=== PATIENT | male | born 1955 | race Caucasian/White ===

== ENCOUNTER → 2017-05-18 09:25 | Outpatient (CLI) | payer OTHER, SELFPAY ==
[2017-05-18 11:19] LABS: International Normalized Ratio 1.2; Prothrombin Time (Protime)PT. 14.9 SECONDS (11.7-14.9)
== END ==
PROVIDERS: Family Provider Family Medicine; PCP Family Medicine; Visit Provider Internal Medicine Cardiovascular Disease
DX: I48.91 Unspecified atrial fibrillation (principal); I48.92 Unspecified atrial flutter
CPT/HCPCS: 36415; 85610

== ENCOUNTER → 2017-05-25 09:01 | Outpatient (CLI) | payer OTHER, SELFPAY ==
[2017-05-25 11:06] LABS: International Normalized Ratio 1.3; Prothrombin Time (Protime)PT. 15.9 SECONDS (11.7-14.9)
== END ==
PROVIDERS: Family Provider Family Medicine; PCP Family Medicine; Visit Provider Internal Medicine Cardiovascular Disease
DX: I48.91 Unspecified atrial fibrillation (principal); I48.92 Unspecified atrial flutter
CPT/HCPCS: 36415; 85610

== ENCOUNTER → 2017-06-08 12:22 | Outpatient (CLI) | payer OTHER, SELFPAY ==
--- NOTE | 2017-06-08 12:50 | PCM.CR.HP2 ---
CR - History & Physical - General Arrival date:: 06/08/17 Arrival time:: 12:50 Date of Admission: 06/08/17 Referring Physician: Dr. Ambrocio Whitaker Primary Diagnosis: Status post aortic valve replacement, replaced pacemaker device - History of Present Cardiac Event Onset Date: Enter Onset Date of cardiac illnesses in Comment field below Valve Replacement/Repair:: Yes - 05/07/2017 @ [facility] Pacemaker/ICD: Yes - 05/07/2017 Type of Symptoms:: 2011 started having, anemia iron deficiency, discovered had aortic valve stenosis, then this year bad enough that it was time to replace it. Interventions with present event:: Aortic valve replaced with a 27mm [employer] trifecta valve and pacemaker Were there any complications?: none, healed, actually ahead of recovery schedule - Medications Home Medications: Ambulatory Orders Medication Instructions Recorded ascorbic acid (vitamin C) 500 mg 500 mg PO QDAY ea 03/26/17 capsule cholecalciferol (vitamin D3) 5,000 5,000 unit PO QDAY 03/26/17 unit capsule levothyroxine 200 mcg tablet 200 mcg PO QDAY tab 03/26/17 pantoprazole 40 mg tablet,delayed 20 mg PO BID tab 03/26/17 release cyanocobalamin (vit B-12) 500 mcg 500 mcg PO QDAY 03/27/17 tablet sucralfate 1 gram tablet 1 g PO TID tab 03/27/17 iron dextran 100 mg/2 mL (50 50 mg IM QWEEK 03/31/17 mg/mL) injection solution acetaminophen 325 mg capsule 325 mg PO Q4H PRN 05/18/17 aspirin 81 mg tablet,delayed 81 mg PO QDAY tab 05/18/17 release atorvastatin 40 mg tablet 40 mg PO QDAY 05/18/17 hydralazine 25 mg tablet 25 mg PO Q8H tab 05/18/17 magnesium oxide 400 mg capsule 400 mg PO QDAY cap 05/18/17 multivitamin tablet 1 tab PO QDAY 05/18/17 metoprolol tartrate 25 mg tablet 12.5 mg PO BID tab 06/01/17 warfarin 2 mg tablet 4 mg PO QDAY #180 tab 06/02/17 - Allergies Allergies/Adverse Reactions: Allergies Penicillins Allergy (Verified 06/01/17 09:53) Hives - Sleep Disorder Evaluation Hx of Sleep Apnea: No Do you snore loudly (louder than talking or can be heard through closed doors)?: No Do you often feel tired/ fatigued/ sleepy during daytime?: No Has anyone observed you stop breathing during sleep?: No History of Hypertension (for STOP score): No STOP Results: Negative Advanced Directives - Advanced Directives Power of Digital Color Press Operator: No Living Will: No Advance Directives Information Provided: Yes Advance Directives on File: No DNR Order?:: No Past Medical History - Problems and Co-Morbidities Problems & Co-Morbidities: Smoking - former smoker quit in 2011., Dyslipidemia - Past Medical Illness Past Medical Illness: Carotid Artery Disease - left side carotid bruits, monitoring status. Other Medical Illnesses:: left 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 ligation, shortness of breath, abnormal EKG, ventricular hypertrophy, bruit of left carotid artery, anemia iron deficiency, hypothyroidism, retinal embolus. - Past Cardiac Illness Past Cardiac Illness: Valve Disorders - aortic and tricuspid valve insuffiency, Arrhythmias - atrial fibrillation, sick sinus syndrome, atrioventricular block type I, premature ventricular contractions, sinus bradycardia., Heart Murmur - since age of 13, Ejection Fraction - 65-70% - Other Other: Vision/Eye Problems - Cardiology Procedures/Interventions Cardiology Procedures/Interventions: Heart Catheterization, Echocardiogram, Stress Echocardiogram - Past Surgical History Surgical History: - - gastric bypass in 1995, wrist surgery, carpal tunnel surgery, knee surgery 2000, - Family History Summary Additional Family History: Father CAD, Mother CAD thyroid disorder, sister thyroid cancer. Review of Systems - Review of Systems Hints: Right click = Denies (Slash). 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 Denies: Shortness of Breath at Rest, Operative Discomfort, Dizziness/Lightheadedness, Fatigue, Sexual Changes Risk Factor Assessment - Chief Complaint Chief Complaint: patient is a very pleasent 62 year old male who presents to cardiac rehab today under the care of Dr. Whitaker. The patient states he has his follow up tomorrow at [facility] with his cardiac surgeon and expects a full release. - Pulse Pulse Rate: 70 Pulse Rhythm: Regular - Hypertension Blood Pressure Sitting - Right Arm: 110/68 - Stress Stress: - - pretty laid back type of individual - Obesity Height: 6 ft 2 in Weight:: 221 lb Weight in Pounds: 221.0 lbs Body Mass Index (BMI): 28.3 Nutritional Referral for Obesity: No - Physical Inactivity Physical Inactivity: Reg Exercise 30 min/day, Recreational activity - Risk Stratification Risk Guidelines: Lowest Risk: Risk Factor for Smoking, Risk Factor for Dyslipidemia, Risk Factor for Diabetes, Risk Factor for Obesity, Risk Factor for Hypertension, Risk Factor for Sedentary Lifestyle, Risk Factor for Depression - For Smoking Smoking Risk Guidelines: Smoking Low Risk: None or quit greater than 6 months ago. Smoking Moderate Risk: Smoker or quit 6 months or less ago. Smoking High Risk: Smoker - For Dyslipidemia Dyslipidemia Risk Guidelines: Low Risk: Moderate Risk: High Risk: 15-25% fat 25.1-29% fat >/= 30% fat. <7% sat fat 7-9% sat fat >9% sat fat. <150 mg chol 150-299 mg chol >/= 300 mg chol. LDL <100 LDL 100-129 LDL >/= 130. Chol/HDL ratio <5.0 Chol/HDL ratio 5.0-6.0 Chol/HDL ratio >6.0. Triglycerides <100 Triglycerides 100-149 Triglycerides >/= 150 - For Diabetes Mellitus Diabetes Risk Guidelines: Diabetes Low Risk: HgA1c <6.5% and/or FBG <120. Diabetes Moderate Risk: HgA1c 6.6-7.9% and/or FBG 120-180. Diabetes High Risk: HgA1c >/= 8% and/or FBG >180 - For Obesity/Overweight Obesity/Overweight Risk Guidelines: Obesity Low Risk: BMI <25.0. Obesity Moderate Risk: BMI 25-29.9. Obesity High Risk: BMI >/= 30.0 - For Hypertension Hypertension Risk Guidelines: Hypertension Low Risk: Systolic <120 and Diastolic <80. Hypertension Moderate Risk: Systolic 120-139 and Diastolic 80-89. Hypertension High Risk: Systolic >/= 140 and Diastolic >/= 90 - For Sedentary Lifestyle Sedentary Lifestyle Risk Guidelines: Sedentary Lifestyle Low Risk: >/= 1,500 kcal/week. Sedentary Lifestyle Moderate Risk: 700-1,499 kcal/week. Sedentary Lifestyle High Risk: < 700 kcal/week - For Depression Depression Risk Guidelines: Depression Low Risk: Not clinically depressed. Depression Moderate Risk: Mildly depressed. 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 Hours worked per day:: 10 - 14 hours on duty Returned to work on:: 07/05/17 - [employer] date. - Hobbies, Recreation, Social Activities Hobbies: Sports - golfing, Other - ride motorcycle Recreational Activities: I am able to engage in all my recreational activities Marital Status - Status Marital Status: - Current Living Arrangements Living Environment:: Family - Children How many children do you have?: 2 - step daughters, 2 grandkids Do any of your children live nearby?: No - outside area [place] - Safety Do you feel safe in your surroundings?: Yes - Assistance Do you need any assistance at home?: none
--- NOTE | 2017-06-08 13:01 | CR.HP_ITS ---
CR - History & Physical - General Arrival date:: 06/08/17 Arrival time:: 12:50 Date of Admission: 06/08/17 Referring Physician: Dr. Ambrocio Whitaker Primary Diagnosis: Status post aortic valve replacement, replaced pacemaker device - History of Present Cardiac Event Onset Date: Enter Onset Date of cardiac illnesses in Comment field below Valve Replacement/Repair:: Yes - 05/07/2017 @ [facility] Pacemaker/ICD: Yes - 05/07/2017 Type of Symptoms:: 2011 started having, anemia iron deficiency, discovered had aortic valve stenosis, then this year bad enough that it was time to replace it. Interventions with present event:: Aortic valve replaced with a 27mm [employer] trifecta valve and pacemaker Were there any complications?: none, healed, actually ahead of recovery schedule - Medications Home Medications: Ambulatory Orders Medication Instructions Recorded ascorbic acid (vitamin C) 500 mg 500 mg PO QDAY ea 03/26/17 capsule cholecalciferol (vitamin D3) 5,000 5,000 unit PO QDAY 03/26/17 unit capsule levothyroxine 200 mcg tablet 200 mcg PO QDAY tab 03/26/17 pantoprazole 40 mg tablet,delayed 20 mg PO BID tab 03/26/17 release cyanocobalamin (vit B-12) 500 mcg 500 mcg PO QDAY 03/27/17 tablet sucralfate 1 gram tablet 1 g PO TID tab 03/27/17 iron dextran 100 mg/2 mL (50 50 mg IM QWEEK 03/31/17 mg/mL) injection solution acetaminophen 325 mg capsule 325 mg PO Q4H PRN 05/18/17 aspirin 81 mg tablet,delayed 81 mg PO QDAY tab 05/18/17 release atorvastatin 40 mg tablet 40 mg PO QDAY 05/18/17 hydralazine 25 mg tablet 25 mg PO Q8H tab 05/18/17 magnesium oxide 400 mg capsule 400 mg PO QDAY cap 05/18/17 multivitamin tablet 1 tab PO QDAY 05/18/17 metoprolol tartrate 25 mg tablet 12.5 mg PO BID tab 06/01/17 warfarin 2 mg tablet 4 mg PO QDAY #180 tab 06/02/17 - Allergies Allergies/Adverse Reactions: Allergies Penicillins Allergy (Verified 06/01/17 09:53) Hives - Sleep Disorder Evaluation Hx of Sleep Apnea: No Do you snore loudly (louder than talking or can be heard through closed doors)? : No Do you often feel tired/ fatigued/ sleepy during daytime?: No Has anyone observed you stop breathing during sleep?: No History of Hypertension (for STOP score): No STOP Results: Negative Advanced Directives - Advanced Directives Power of Packaging Line Operator: No Living Will: No Advance Directives Information Provided: Yes Advance Directives on File: No DNR Order?:: No Past Medical History - Problems and Co-Morbidities Problems & Co-Morbidities: Smoking - former smoker quit in 2011., Dyslipidemia - Past Medical Illness Past Medical Illness: Carotid Artery Disease - left side carotid bruits, monitoring status. Other Medical Illnesses:: left 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 ligation, shortness of breath, abnormal EKG, ventricular hypertrophy, bruit of left carotid artery, anemia iron deficiency, hypothyroidism, retinal embolus. - Past Cardiac Illness Past Cardiac Illness: Valve Disorders - aortic and tricuspid valve insuffiency, Arrhythmias - atrial fibrillation, sick sinus syndrome, atrioventricular block type I, premature ventricular contractions, sinus bradycardia., Heart Murmur - since age of 13, Ejection Fraction - 65-70% - Other Other: Vision/Eye Problems - Cardiology Procedures/Interventions Cardiology Procedures/Interventions: Heart Catheterization, Echocardiogram, Stress Echocardiogram - Past Surgical History Surgical History: - - gastric bypass in 1995, wrist surgery, carpal tunnel surgery, knee surgery 2000, - Family History Summary Additional Family History: Father CAD, Mother CAD thyroid disorder, sister thyroid cancer. Review of Systems - Review of Systems Hints: Right click = Denies (Slash). 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 Denies: Shortness of Breath at Rest, Operative Discomfort, Dizziness/Lightheadedness, Fatigue, Sexual Changes Risk Factor Assessment - Chief Complaint Chief Complaint: patient is a very pleasent 62 year old male who presents to cardiac rehab today under the care of Dr. Whitaker. The patient states he has his follow up tomorrow at [facility] with his cardiac surgeon and expects a full release. - Pulse Pulse Rate: 70 Pulse Rhythm: Regular - Hypertension Blood Pressure Sitting - Right Arm: 110/68 - Stress Stress: - - pretty laid back type of individual - Obesity Height: 6 ft 2 in Weight:: 221 lb Weight in Pounds: 221.0 lbs Body Mass Index (BMI): 28.3 Nutritional Referral for Obesity: No - Physical Inactivity Physical Inactivity: Reg Exercise 30 min/day, Recreational activity - Risk Stratification Risk Guidelines: Lowest Risk: Risk Factor for Smoking, Risk Factor for Dyslipidemia, Risk Factor for Diabetes, Risk Factor for Obesity, Risk Factor for Hypertension, Risk Factor for Sedentary Lifestyle, Risk Factor for Depression - For Smoking Smoking Risk Guidelines: Smoking Low Risk: None or quit greater than 6 months ago. Smoking Moderate Risk: Smoker or quit 6 months or less ago. Smoking High Risk: Smoker - For Dyslipidemia Dyslipidemia Risk Guidelines: Low Risk: Moderate Risk: High Risk: 15-25% fat 25.1-29% fat >/= 30% fat. <7% sat fat 7-9% sat fat >9% sat fat. <150 mg chol 150-299 mg chol >/= 300 mg chol. LDL <100 LDL 100-129 LDL >/= 130. Chol/HDL ratio <5.0 Chol/HDL ratio 5.0-6.0 Chol/HDL ratio >6.0. Triglycerides <100 Triglycerides 100-149 Triglycerides >/= 150 - For Diabetes Mellitus Diabetes Risk Guidelines: Diabetes Low Risk: HgA1c <6.5% and/or FBG <120. Diabetes Moderate Risk: HgA1c 6.6-7.9% and/or FBG 120-180. Diabetes High Risk: HgA1c >/= 8% and/or FBG >180 - For Obesity/Overweight Obesity/Overweight Risk Guidelines: Obesity Low Risk: BMI <25.0. Obesity Moderate Risk: BMI 25-29.9. Obesity High Risk: BMI >/= 30.0 - For Hypertension Hypertension Risk Guidelines: Hypertension Low Risk: Systolic <120 and Diastolic <80. Hypertension Moderate Risk: Systolic 120-139 and Diastolic 80-89. Hypertension High Risk: Systolic >/= 140 and Diastolic >/= 90 - For Sedentary Lifestyle Sedentary Lifestyle Risk Guidelines: Sedentary Lifestyle Low Risk: >/= 1 ,500 kcal/week. Sedentary Lifestyle Moderate Risk: 700-1,499 kcal/week. Sedentary Lifestyle High Risk: < 700 kcal/week - For Depression Depression Risk Guidelines: Depression Low Risk: Not clinically depressed. Depression Moderate Risk: Mildly depressed. 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 Hours worked per day:: 10 - 14 hours on duty Returned to work on:: 07/05/17 - [employer] date. - Hobbies, Recreation, Social Activities Hobbies: Sports - golfing, Other - ride motorcycle Recreational Activities: I am able to engage in all my recreational activities Marital Status - Status Marital Status: - Current Living Arrangements Living Environment:: Family - Children How many children do you have?: 2 - step daughters, 2 grandkids Do any of your children live nearby?: No - outside area [place] - Safety Do you feel safe in your surroundings?: Yes - Assistance Do you need any assistance at home?: none
[2017-06-08 13:20] VITALS: BP 110/68; PULSE 70; BMI 28.3
== END ==
PROVIDERS: Family Provider Family Medicine; PCP Family Medicine; Visit Provider Internal Medicine Cardiovascular Disease
DX: I25.10 Atherosclerotic heart disease of native coronary artery without angina pectoris (principal); Z95.2 Presence of prosthetic heart valve

== ENCOUNTER 2017-06-08 12:27 | Outpatient (RCR) | payer OTHER, SELFPAY ==
[2017-06-01 09:45] LABS: International Normalized Ratio 1.2
[2017-06-08 12:57] LABS: International Normalized Ratio 1.4; Prothrombin Time (Protime)PT. 16.8 SECONDS (11.7-14.9)
--- NOTE | 2017-06-08 13:21 | CR.ITP_ITS ---
Exercise - Initial Assessment - Visit Date of Eval: 06/08/17 - established initial ITP Session #:: 1 - start 06/10/2017 - Stages of Change Stages of Change:: Action - Exercise Prescription Mode:: Treadmill, Rower - 8 weeks post op of May 06, 2017, Percy Joya - Hypertension Do any of the following apply?: No Resting Blood Pressure:: 110/68 - Intervention Home Exercise/Activity Goal:: Moderate Exercise 30 min/day x 5 days/wk - Education Goals:: Warm-up, RPE GARBIEL Scale, S/S, Safe Exercise, Self-Monitoring - Exercise Program Goals Exercise Program Goals: Aerobic Activity >30 min Nutrition - Initial Assessment - Program Goals Nutrition Program Goals: LDL <70. Total Cholesterol <200. HDL >45. Triglycerides <150. HgbA1C <7%. BMI <25 - Visit Date of Assessment:: 06/08/17 - establish initial ITP - Stages of Change Stages of Change:: Action - Weight Management Height: 6 ft 4 in Weight:: 221 lb Body Fat %:: 26.9 - Intervention Referral to dietitian:: No Referral to Diabetic Clinic:: No Will attend diet classes:: Yes - Education Gave educational materials for:: Healthy eating Tobacco - Initial Assessment - Program Goals Tobacco Program Goals: Complete smoking cessation. Attend education classes. Improve Knowledge Test score - Stage of Change Stages of Change:: Action - Learning Barriers Learning Barriers: Vision, Ready to Learn - Family Support Do you have family support?: Yes - Tobacco Use Tobacco Use: Non-smoker How long ago did you quit using tobacco products?: Greater than or equal to 6 months ago How many cigarettes do you smoke per day?: 0 Years Smokin Do you use smokeless tobacco?: No - Intervention Smoking Cessation Referral:: No Individual Education/Counseling:: No Education Schedule Given:: Yes - Education Gave educational material for:: Coronary artery disease, Risk factors, Sexuality , Medical compliance, Cardiac A&P, Angina signs & symptoms Psychosocial - Initial Assess - Target Goals Target Goals: Assess presence or absence of depression. Using a valid screening tool, maximizes coping skills. Positive support system - Stages of Change Stages of Change:: Action - Psychosocial Test Tool Used:: HANDS Depression Questionnaire - Intervention PS - Interventions: Yes Attend Stress Management Classes, No Referral to Mental Health, No Referral to [facility] Case Management, No Referral to Physician, No Uses Stress Management Skills - Education Gave educational materials for:: Coping techniques, Signs & symptoms of depression, Stress management, Relaxation techniques - Patient/Program Goal Preventative Medication(s):: Aspirin, Clopidogrel, Beta magdy, Statin/lipid - Assistive Devices Assistive Devices:: None Fall Risk Assessed:: Yes Patient Health Questionnaire Initial Assessment 1. Little interest or pleasure in doing things: Not at all 2. Feeling down, depressed, or hopeless: Not at all 3. Trouble falling or staying asleep, or sleeping too much: Not at all 4. Feeling tired or having little energy: Several days 5. Poor appetite or overeating: Several days 6. Feeling bad about yourself -- or that you are a failure or have let yourself or your family down: Not at all 7. Trouble concentrating on things, such as reading the newspaper or watching television: Not at all 8. Moving or speaking so slowly that other people could have noticed. Or the opposite - being so fidgety or restless that you have been moving around a lot more than usual: Not at all 9. Thoughts that you would be better off , or of hurting yourself in some way: Not at all How difficult have these problems made it for you to do your work, take care of things at home, or get along with other people?: Not difficult at all Total Score: 2 Knowledge Test - Check your knowledge Initial The #1 cause of in the [place] each year is:: Heart disease Which of the following is a common treatment for heart disease?: All of the above The arteries that feed the heart are called:: Coronary arteries HDL cholesterol is known as the good cholesterol.: True What disease increases your risk for heart disease?: Diabetes What food product raises blood cholesterol level the most?: Saturated fat The bad cholesterol in the blood is called:: CBC Hypertension is another word for:: High blood pressure A blood pressure reading of 148/88 is considered normal.: False Exercise will only benefit your health when your heart rate reaches a target level.: False Total Score:: 9 Self-Efficacy Initial Assessment We would like to know how confident you are in doing certain activities. Please select your confidence level for:: Select your confidence level for the following using the scale 1-10 where 1 is not at all confident and 10 is totally confident. Your score is the average of all 6 responses. Fatigue: How confident are you that you can keep the fatigue caused by your disease from interfering with the things you want to do? Select Number: 8 Physical Discomfort or Pain: How confident are you that you can keep the physical discomfort or pain of your disease from interfering with the things you want to do? Select Number: 8 Emotional Distress: How confident are you that you can keep the emotional distress caused by your disease from interfering with the things you want to do? Select Number: 8 Other Symptoms or Health Problems: How confident are you that you can keep other symptoms or health problems from interfering with the things you want to do? Select Number: 8 Different Tasks and Activities: How confident are you that you can do the different tasks and activities needed to manage your health condition so as to reduce your need to see a doctor? Select Number: 8 Medication: How confident are you that you can do things other than just taking medication to reduce how much your illness affects your everyday life? Select Number: 9 Total Score:: 8 Nutrition Survey - Nutrition Survey Instructions Scoring Instructions: Scoring is as follows: Yes = 1 points. No = 0 point. Patient score that is >/=12 is considered to be at potential nutritional risk and could benefit from a referral to a registered dietitian. - Nutrition Survey Initial Have you lost >10 lbs over the past 2 months without trying?: No Are you following a special diet at home for diabetes, low fat, or low salt?: Yes Are you interested in meeting with a dietitian for help understanding your diet? : No Do you eat less than 3 meals a day?: No Do you eat fatty meats (howell, sausage, ribs, etc), fried foods, desserts, large amounts of salad dressings, margarine, butter, or cheese most days?: Yes Do you have food allergies? [Enter types in comment field]: No Do you eat in restaurants more than 3 times a week?: Yes Do you season food with salt, seasoning salt, or garlic salt?: No Do you used canned, boxed, frozen meals, or soups, seasoning packets?: Yes Total Score:: 4 Cardiac Rehabilitation Goals - Cardiac Rehab Goals Cardiac Rehabilitation Goals: 1. Maintain the individual as the primary focus of care. 2. To improve the patient's quality of life. 3. Identification of cardiac risk factors and provide cardiac risk factor management. 4. Enhance the psychosocial status of the patient. 5. Reconditioning enough to allow the patient to resume customary activities. 6. Control symptoms of cardiac disease - Scale Scale for measuring improvement of personal goals: Enter appropriate number in Comments. 2 = Unchanged. 3 = Slightly Better. 4 = Moderate Improvement. 5 = Met my Goal Initial Assessment Personal Goals: 30-day Re-assessment: Quit smoking (participate in smoking cessation, Improve management of stress and emotions, Improve energy level, Participate in home exercise program, Get back to work, or to resume activities faster, Improve knowledge of cardiac disease, Improve muscle strength and endurance, Improve diet and eating habits (eat healthier), Control risk factors (learn risk factor modification)
[2017-06-08 13:51] VITALS: BP 110/68
== END 2017-06-08 13:00 | disposition home or self-care (01) ==
LOC: LAB 12:27
PROVIDERS: Family Provider Family Medicine; PCP Family Medicine; Visit Provider Internal Medicine Cardiovascular Disease
DX: I48.92 Unspecified atrial flutter (principal); I48.91 Unspecified atrial fibrillation
CPT/HCPCS: 36415; 85610

== ENCOUNTER 2017-06-19 08:00 | Outpatient (RCR) | payer OTHER, SELFPAY ==
[2017-06-15 11:21] VITALS: BP 108/64; BP 116/74
--- NOTE | 2017-06-15 11:22 | CR.ITP_ITS ---
Exercise - Initial Assessment - Stages of Change Stages of Change:: Action - Exercise Prescription Mode:: Treadmill, Rower - 8 weeks post op of May 06, 2017, Percy Joya - Hypertension Do any of the following apply?: No - Intervention Home Exercise/Activity Goal:: Moderate Exercise 30 min/day x 5 days/wk - Education Goals:: Warm-up, RPE GABRIEL Scale, S/S, Safe Exercise, Self-Monitoring - Exercise Program Goals Exercise Program Goals: Aerobic Activity >30 min Exercise - 30-day Assessment - Visit Date of Eval: 06/15/17 - 06/10/2017-06/12/2017 Session #:: 2 - Stages of Change Stages of Change:: Action - Exercise Prescription Mode:: Treadmill, Airdyne, NuStep Frequency (x/week): 3 Duration:: 30 METs - Progression: 0.5-1 MET as tolerated: 2.5 Target Heart Rate:: 119-126 Max HR 131 - Hypertension Resting Blood Pressure:: 108/64 Peak Exercise Blood Pressure:: 116/74 Medication Changes:: No - Intervention Home Exercise/Activity Goal:: Sitting Time <3 hrs/day - Education Goals:: Warm-up, RPE GABRIEL Scale, S/S, Safe Exercise, Self-Monitoring - Exercise Program Goals Exercise Program Goals: Aerobic Activity >30 min, B/P <140/90 Exercise - Final/Discharge - Hypertension Do any of the following apply?: No Nutrition - Initial Assessment - Program Goals Nutrition Program Goals: LDL <70. Total Cholesterol <200. HDL >45. Triglycerides <150. HgbA1C <7%. BMI <25 - Stages of Change Stages of Change:: Action - Weight Management Body Fat %:: 26.9 Total Score:: 4 - Intervention Referral to dietitian:: No Referral to Diabetic Clinic:: No Will attend diet classes:: Yes - Education Gave educational materials for:: Healthy eating Nutrition - 30-Day Assessment - Program Goals Nutrition Program Goals: LDL <70. Total Cholesterol <200. HDL >45. Triglycerides <150. HgbA1C <7%. BMI <25 - Visit Date of Eval: 06/15/17 - 06/10/2017-06/12/2017 - Stages of Change Stages of Change:: Action - Lipids Has the patient seen the dietitian?: No - Diabetes Diabetes:: No - Weight Management Weight:: 99.79 kg - Intervention Referral to dietitian:: No Referral to Diabetic Clinic:: No Will attend diet classes:: Yes - Education Attended class for:: Healthy eating Nutrition - 60-Day Assessment - Program Goals Nutrition Program Goals: LDL <70. Total Cholesterol <200. HDL >45. Triglycerides <150. HgbA1C <7%. BMI <25 - Intervention Referral to dietitian:: No Referral to Diabetic Clinic:: No Will attend diet classes:: Yes - Education Attended class for:: Healthy eating Nutrition - 90-Day Assessment - Program Goals Nutrition Program Goals: LDL <70. Total Cholesterol <200. HDL >45. Triglycerides <150. HgbA1C <7%. BMI <25 - Intervention Referral to dietitian:: No Referral to Diabetic Clinic:: No Will attend diet classes:: Yes - Education Attended class for:: Healthy eating Nutrition - Final Assessment - Program Goals Nutrition Program Goals: LDL <70. Total Cholesterol <200. HDL >45. Triglycerides <150. HgbA1C <7%. BMI <25 - Weight Management Body Fat %:: 26.9 Total Score:: 4 - Intervention Referral to dietitian:: No Referral to Diabetic Clinic:: No Will attend diet classes:: Yes Tobacco - Initial Assessment - Program Goals Tobacco Program Goals: Complete smoking cessation. Attend education classes. Improve Knowledge Test score - Stage of Change Stages of Change:: Action - Learning Barriers Learning Barriers: Vision, Ready to Learn Total Score:: 9 - Family Support Do you have family support?: Yes - Tobacco Use Tobacco Use: Non-smoker How long ago did you quit using tobacco products?: Greater than or equal to 6 months ago How many cigarettes do you smoke per day?: 0 Years Smokin Do you use smokeless tobacco?: No - Intervention Smoking Cessation Referral:: No Individual Education/Counseling:: No Education Schedule Given:: Yes - Education Gave educational material for:: Coronary artery disease, Risk factors, Sexuality , Medical compliance, Cardiac A&P, Angina signs & symptoms Tobacco - 30-Day Assessment - Program Goals Tobacco Program Goals: Complete smoking cessation. Attend education classes. Improve Knowledge Test score - Stage of Change Stages of Change:: Action - Learning Barriers Learning Barriers: Participates in education - Family Support Do you have family support?: Yes - Tobacco Use Tobacco Use: Non-smoker How many cigarettes do you smoke per day?: 0 Do you use smokeless tobacco?: No - Intervention Smoking Cessation Referral:: No Individual Education/Counseling:: No Education Schedule Given:: Yes - Education Attended class for:: Tobacco triggers, Coronary artery disease, Risk factors, Sexuality, Medical compliance, Cardiac A&P, Angina signs & symptoms Tobacco - 60-Day Assessment - Program Goals Tobacco Program Goals: Complete smoking cessation. Attend education classes. Improve Knowledge Test score - Family Support Do you have family support?: Yes - Tobacco Use How many cigarettes do you smoke per day?: 0 Do you use smokeless tobacco?: No - Intervention Smoking Cessation Referral:: No Individual Education/Counseling:: No Education Schedule Given:: Yes - Education Attended class for:: Coronary artery disease, Risk factors, Sexuality, Medical compliance, Cardiac A&P, Angina signs & symptoms Tobacco - 90-Day Assessment - Program Goals Tobacco Program Goals: Complete smoking cessation. Attend education classes. Improve Knowledge Test score - Family Support Do you have family support?: Yes - Tobacco Use How many cigarettes do you smoke per day?: 0 Do you use smokeless tobacco?: No - Intervention Smoking Cessation Referral:: No Individual Education/Counseling:: No Education Schedule Given:: Yes - Education Attended class for:: Coronary artery disease, Risk factors, Sexuality, Medical compliance, Cardiac A&P, Angina signs & symptoms Tobacco - Final Assessment - Program Goals Tobacco Program Goals: Complete smoking cessation. Attend education classes. Improve Knowledge Test score - Learning Barriers Cardiac Knowledge Test Score:: 9 - Family Support Do you have family support?: Yes - Tobacco Use How many cigarettes do you smoke per day?: 0 Do you use smokeless tobacco?: No - Intervention Smoking Cessation Referral:: No Individual Education/Counseling:: No Education Schedule Given:: Yes Psychosocial - Initial Assess - Target Goals Target Goals: Assess presence or absence of depression. Using a valid screening tool, maximizes coping skills. Positive support system - Stages of Change Stages of Change:: Action - Psychosocial Test Tool Used:: HANDS Depression Questionnaire Self-Efficacy Score:: 8 - Intervention PS - Interventions: Yes Attend Stress Management Classes, No Referral to Mental Health, No Referral to [facility] Case Management, No Referral to Physician, No Uses Stress Management Skills - Education Gave educational materials for:: Coping techniques, Signs & symptoms of depression, Stress management, Relaxation techniques - Patient/Program Goal Preventative Medication(s):: Aspirin, Clopidogrel, Beta magdy, Statin/lipid - Assistive Devices Assistive Devices:: None Fall Risk Assessed:: Yes Psychosocial - 30-Day Assess - Target Goals Target Goals: Assess presence or absence of depression. Using a valid screening tool, maximizes coping skills. Positive support system - Stages of Change Stages of Change:: Action - Psychosocial Test Tool Used:: HANDS Depression Questionnaire Self-Efficacy Score:: 8 - Intervention PS - Interventions: Yes Attend Stress Management Classes, Yes Uses Stress Management Skills, No Referral to Mental Health, No Referral to [facility] Case Management, No Referral to Physician - Education Attended classes for:: Coping techniques, Signs & symptoms of depression, Stress management, Relaxation techniques - Patient/Program Goal Preventative Medication(s):: Aspirin, Clopidogrel, Beta magdy, Statin/lipid - Assistive Devices Assistive Devices:: None Fall Risk Assessed:: Yes Psychosocial - 60-Day Assess - Target Goals Target Goals: Assess presence or absence of depression. Using a valid screening tool, maximizes coping skills. Positive support system - Psychosocial Test Tool Used:: HANDS Depression Questionnaire Self-Efficacy Score:: 8 - Education Attended classes for:: Coping techniques, Signs & symptoms of depression, Stress management, Relaxation techniques - Patient/Program Goal Preventative Medication(s):: Aspirin, Clopidogrel, Beta magdy, Statin/lipid - Assistive Devices Assistive Devices:: None Fall Risk Assessed:: Yes Psychosocial - 90-Day Assess - Target Goals Target Goals: Assess presence or absence of depression. Using a valid screening tool, maximizes coping skills. Positive support system - Psychosocial Test Tool Used:: HANDS Depression Questionnaire Self-Efficacy Score:: 8 - Education Attended classes for:: Coping techniques, Signs & symptoms of depression, Stress management, Relaxation techniques - Patient/Program Goal Preventative Medication(s):: Aspirin, Clopidogrel, Beta magdy, Statin/lipid - Assistive Devices Assistive Devices:: None Fall Risk Assessed:: Yes Psychosocial - Final Assessmen - Target Goals Target Goals: Assess presence or absence of depression. Using a valid screening tool, maximizes coping skills. Positive support system - Psychosocial Test Tool Used:: HANDS Depression Questionnaire Self-Efficacy Score:: 8 - Patient/Program Goal Preventative Medication(s):: Aspirin, Clopidogrel, Beta magdy, Statin/lipid - Assistive Devices Assistive Devices:: None Fall Risk Assessed:: Yes Patient Health Questionnaire 30-Day Re-eval Assessment 1. Little interest or pleasure in doing things: Not at all 2. Feeling down, depressed, or hopeless: Not at all 3. Trouble falling or staying asleep, or sleeping too much: Not at all 4. Feeling tired or having little energy: Not at all 5. Poor appetite or overeating: Not at all 6. Feeling bad about yourself -- or that you are a failure or have let yourself or your family down: Not at all 7. Trouble concentrating on things, such as reading the newspaper or watching television: Not at all 8. Moving or speaking so slowly that other people could have noticed. Or the opposite - being so fidgety or restless that you have been moving around a lot more than usual: Not at all 9. Thoughts that you would be better off , or of hurting yourself in some way: Not at all How difficult have these problems made it for you to do your work, take care of things at home, or get along with other people?: Not difficult at all Total Score: 0 Self-Efficacy 30-Day Re-eval Assessment We would like to know how confident you are in doing certain activities. Please select your confidence level for:: Select your confidence level for the following using the scale 1-10 where 1 is not at all confident and 10 is totally confident. Your score is the average of all 6 responses. Fatigue: How confident are you that you can keep the fatigue caused by your disease from interfering with the things you want to do? Select Number: 10 Physical Discomfort or Pain: How confident are you that you can keep the physical discomfort or pain of your disease from interfering with the things you want to do? Select Number: 10 Emotional Distress: How confident are you that you can keep the emotional distress caused by your disease from interfering with the things you want to do? Select Number: 10 Other Symptoms or Health Problems: How confident are you that you can keep other symptoms or health problems from interfering with the things you want to do? Select Number: 10 Different Tasks and Activities: How confident are you that you can do the different tasks and activities needed to manage your health condition so as to reduce your need to see a doctor? Select Number: 10 Medication: How confident are you that you can do things other than just taking medication to reduce how much your illness affects your everyday life? Select Number: 10 Total Score:: 10 Cardiac Rehabilitation Goals - Cardiac Rehab Goals Cardiac Rehabilitation Goals: 1. Maintain the individual as the primary focus of care. 2. To improve the patient's quality of life. 3. Identification of cardiac risk factors and provide cardiac risk factor management. 4. Enhance the psychosocial status of the patient. 5. Reconditioning enough to allow the patient to resume customary activities. 6. Control symptoms of cardiac disease - Scale Scale for measuring improvement of personal goals: Enter appropriate number in Comments. 2 = Unchanged. 3 = Slightly Better. 4 = Moderate Improvement. 5 = Met my Goal 30-Day Re-eval Assessment Personal Goals: 30-day Re-assessment: Improve energy level, Participate in home exercise program, Improve knowledge of cardiac disease, Improve muscle strength and endurance, Control risk factors (learn risk factor modification)
== END 2017-06-20 23:59 ==
LOC: CR 08:00
PROVIDERS: Family Provider Family Medicine; PCP Family Medicine; Visit Provider Internal Medicine Cardiovascular Disease
DX: I25.10 Atherosclerotic heart disease of native coronary artery without angina pectoris (principal); Z95.2 Presence of prosthetic heart valve
CPT/HCPCS: 93798

== ENCOUNTER 2017-07-03 08:00 | Outpatient (RCR) | payer OTHER, SELFPAY ==
[2017-06-21 01:19] VITALS: BP 108/64; BP 116/74
[2017-07-14 06:36] VITALS: BP 106/68
--- NOTE | 2017-07-14 06:37 | CR.ITP_ITS ---
Exercise - Final/Discharge - Visit Date of Eval: 07/14/17 - discharged 07/03/2017 returned to work. 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 Duration:: 30 METs: 4 Target Heart Rate:: 119-126 w max HR 112 - Hypertension Do any of the following apply?: Yes Resting Blood Pressure:: 106/68 - optimal BP control < 130/80 - Intervention Home Exercise/Activity Goal:: Moderate Exercise 30 min/day x 5 days/wk - Education Goal Progress: Goal Met - Exercise Program Goals Exercise Program Goals: Aerobic Activity >30 min Nutrition - Final Assessment - Program Goals Nutrition Program Goals: LDL <70. Total Cholesterol <200. HDL >45. Triglycerides <150. HgbA1C <7%. BMI <25 - Visit Date of Eval: 07/14/17 - Stages of Change Stages of Change:: Action - Diabetes Diabetes:: No Insulin: No Non-Insulin Dependent?: No - Weight Management Height: 6 ft 4 in Weight:: 226 lb - Intervention Referral to dietitian:: No Referral to Diabetic Clinic:: No Will attend diet classes:: Yes - Education Education Goal Reached?: Yes Tobacco - Initial Assessment - Program Goals Tobacco Program Goals: Complete smoking cessation. Attend education classes. Improve Knowledge Test score - Learning Barriers Learning Barriers: Vision, Ready to Learn Tobacco - Final Assessment - Program Goals Tobacco Program Goals: Complete smoking cessation. Attend education classes. Improve Knowledge Test score - Stage of Change Stages of Change:: Action - Family Support Do you have family support?: Yes - Tobacco Use Tobacco Use: Non-smoker Do you use smokeless tobacco?: No - Intervention Smoking Cessation Referral:: No Individual Education/Counseling:: No Education Schedule Given:: Yes - Education Education Goal Reached?: Yes Psychosocial - Initial Assess - Target Goals Target Goals: Assess presence or absence of depression. Using a valid screening tool, maximizes coping skills. Positive support system - Psychosocial Test Tool Used:: HANDS Depression Questionnaire - Assistive Devices Fall Risk Assessed:: Yes Psychosocial - Final Assessmen - Target Goals Target Goals: Assess presence or absence of depression. Using a valid screening tool, maximizes coping skills. Positive support system - Stages of Change Stages of Change:: Action - Psychosocial Test Tool Used:: HANDS Depression Questionnaire - Intervention PS - Interventions: Yes Attend Stress Management Classes, Yes Uses Stress Management Skills, No Referral to Mental Health, No Referral to [facility] [place] Case Management, No Referral to Physician - Education Education Goal Reached?: Yes - Patient/Program Goal Preventative Medication(s):: Aspirin, Clopidogrel, Statin/lipid - Assistive Devices Assistive Devices:: None Fall Risk Assessed:: Yes Patient Health Questionnaire Discharge Assessment 1. Little interest or pleasure in doing things: Not at all 2. Feeling down, depressed, or hopeless: Not at all 3. Trouble falling or staying asleep, or sleeping too much: Several days 4. Feeling tired or having little energy: Several days 5. Poor appetite or overeating: Several days 6. Feeling bad about yourself -- or that you are a failure or have let yourself or your family down: Not at all 7. Trouble concentrating on things, such as reading the newspaper or watching television: Not at all 8. Moving or speaking so slowly that other people could have noticed. Or the opposite - being so fidgety or restless that you have been moving around a lot more than usual: Not at all 9. Thoughts that you would be better off , or of hurting yourself in some way: Not at all How difficult have these problems made it for you to do your work, take care of things at home, or get along with other people?: Not difficult at all Total Score: 3 JEFFERSON-Q SV Test - Statements CAD is a disease of the arteries in the heart: False Examples of risk factors for heart disease: True Angina is chest pain or discomfort: True The benefits of resistance training include: True Eating more meat and dairy products: False Anti-platelet medications such as aspirin are important: True The only effective way to manage stress: False An exercise warm-up slowly increases heart rate: True Prepared, processed foods usually have high sodium: True Depression is common after a heart attack: True The statin medications lower cholesterol: True To control blood pressure, lower the amount of sodium: True If someone gets chest discomfort during walking: False Transfats are partially hydrogenated vegetable oils: True Sleep apnea that is not treated increases the risk: False To control cholesterol, one should become a vegetarian: False Someone knows if he/she is exercising at the right level: True Diabetes cannot be prevented with exercise & health eating: False Stress is a large risk for heart attack: True A diet that can help lower blood pressure is rich in: True - Total Score Total Correct Responses: 19 Self-Efficacy Discharge Assessment We would like to know how confident you are in doing certain activities. Please select your confidence level for:: Select your confidence level for the following using the scale 1-10 where 1 is not at all confident and 10 is totally confident. Your score is the average of all 6 responses. Fatigue: How confident are you that you can keep the fatigue caused by your disease from interfering with the things you want to do? Select Number: 9 Physical Discomfort or Pain: How confident are you that you can keep the physical discomfort or pain of your disease from interfering with the things you want to do? Select Number: 10 Emotional Distress: How confident are you that you can keep the emotional distress caused by your disease from interfering with the things you want to do? Select Number: 10 Other Symptoms or Health Problems: How confident are you that you can keep other symptoms or health problems from interfering with the things you want to do? Select Number: 10 Different Tasks and Activities: How confident are you that you can do the different tasks and activities needed to manage your health condition so as to reduce your need to see a doctor? Select Number: 10 Medication: How confident are you that you can do things other than just taking medication to reduce how much your illness affects your everyday life? Select Number: 10 Total Score:: 9 Nutrition Survey - Nutrition Survey Instructions Scoring Instructions: Scoring is as follows: Yes = 1 points. No = 0 point. Patient score that is >/=12 is considered to be at potential nutritional risk and could benefit from a referral to a registered dietitian. - Nutrition Survey Discharge Have you lost >10 lbs over the past 2 months without trying?: No Are you following a special diet at home for diabetes, low fat, or low salt?: No Are you interested in meeting with a dietitian for help understanding your diet? : No Do you eat less than 3 meals a day?: No Do you eat fatty meats (howell, sausage, ribs, etc), fried foods, desserts, large amounts of salad dressings, margarine, butter, or cheese most days?: Yes Do you have food allergies? 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 Total Score:: 2
== END 2017-07-03 08:16 | disposition home or self-care (01) ==
LOC: CR 08:00
PROVIDERS: Family Provider Family Medicine; PCP Family Medicine; Visit Provider Internal Medicine Cardiovascular Disease
DX: I25.10 Atherosclerotic heart disease of native coronary artery without angina pectoris (principal); Z95.2 Presence of prosthetic heart valve
CPT/HCPCS: 93798

== ENCOUNTER → 2017-10-26 08:16 | Outpatient (CLI) | payer OTHER, SELFPAY ==
[2017-10-26 09:03] LABS: Absolute Lymphocyte Count 1.84 X10^3/ul (0.83-4.51); Absolute Neutrophil Count 2.6 X10^3/uL (2.0-7.7); Basophil# 0.01 X10^3/uL; Basophil% 0.2 % (0-1); Eosinophil# 0.01 X10^3/uL; Eosinophils% 0.2 % (0-5); Hematocrit 36.8 % (40-54); Hemoglobin 11.6 g/dl (13.0-16.5); Lymphocyte # 1.84 X10^3/ul (4.0); Lymphocyte % 37.2 % (19-41); Mean Corp Hgb Conc 31.5 g/gl (32-36); Mean Corpuscular Hgb 28.3 pg (27.0-32.0); Mean Corpuscular Volume 89.8 fL (80-94); Mean Platelet Vol. 9.2 fl (6.2-12.0); Monocyte# 0.46 X10^3/uL; Monocyte% 9.3 % (0-10); Neutrophil # 2.61 X10^3/uL (2.7-7.7); Neutrophil % 52.9 % (47-70); Platelet Count 114 K/mm3 (150-450); RBC Distribution Width CV 21.1 % (11.6-14.6); RBC Distribution Width SD 69.1 fl (35.1-43.9); White Blood Count 4.9 K/mm3 (4.4-11.0)
[2017-10-26 09:07] LABS: Differential Indicated SCAN CRITERIA MET; POSITIVE COUNT NO; POSITIVE DIFFERENTIAL NO; POSITIVE MORPHOLOGY YES
[2017-10-26 09:20] LABS: Ferritin 58 ng/mL (26-388); Iron 57 ug/dL (65-175); T4 Free Direct 1.54 ng/dL (0.76-1.46); Thyroid Stim Hormone (TSH) 0.29 uIU/mL (0.358-3.74)
[2017-10-26 09:25] LABS: Anion Gap 3 (5-15); BUN 17 mg/dL (7-18); BUN/Creat Ratio 17.9 RATIO (10-20); Chloride 109 mmol/L (98-107); Creatinine, Serum 0.95 mg/dL (0.70-1.30); EST Glomerular Filtration Rate 86 mL/min (>60); Est Glom Filt Rate - Afr Amer 104 mL/min (>60); Glucose 89 mg/dL (74-106); Potassium 4.4 mmol/L (3.5-5.1); Sodium Level 138 mmol/L (136-145)
== END ==
PROVIDERS: Physician Assistant Medical; Family Provider Family Medicine; PCP Family Medicine; Visit Provider Family Medicine
DX: D50.9 Iron deficiency anemia, unspecified (principal); E03.9 Hypothyroidism, unspecified; I51.7 Cardiomegaly; I48.91 Unspecified atrial fibrillation; I08.0 Rheumatic disorders of both mitral and aortic valves; I49.5 Sick sinus syndrome; R06.02 Shortness of breath; R42 Dizziness and giddiness; Z95.0 Presence of cardiac pacemaker; Z79.01 Long term (current) use of 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s
CPT/HCPCS: 36415; 80048; 82728; 83540; 84439; 84443; 85025

== ENCOUNTER 2017-10-26 10:24 | Emergency (ER) | payer OTHER, SELFPAY ==
[2017-10-26 10:25] VITALS: BP 130/77; PULSE 60; RESP 18; TEMP 37.1; O2SAT 100; BMI 26.9
--- NOTE | 2017-10-26 10:54 | EKG12_ITS ---
Test Reason : Blood Pressure : / mmHG Vent. Rate : 060 BPM Atrial Rate : 060 BPM P-R Int : 266 ms QRS Dur : 156 ms QT Int : 470 ms P-R-T Axes : -17 080 050 degrees QTc Int : 470 ms Atrial-paced rhythm with prolonged AV conduction Right bundle branch block Abnormal ECG Confirmed by ROSARIO ZAMORA, JOIE ([id number]), editor managing director CHAS WILHELM ([id number]) on 10/28/2017 10:08:35 AM Referred By: Tapan Cuellar Confirmed By:JOIE PONCE MD
--- NOTE | 2017-10-26 10:54 | CT_ITS ---
STUDY: CT BRAIN WITHOUT CONTRAST REASON FOR EXAM: Male, 62 years old. Dizziness, headache RADIATION DOSAGE (If Supplied By Facility): CTDIvol = ( 44.99 ) mGy, DLP = ( 846.73 ) mGycm TECHNIQUE: Transaxial CT imaging of the brain was performed without administration of intravenous contrast material. Sagittal and coronal reconstructed images are provided and reviewed. Individualized dose optimization techniques were used for this CT. COMPARISON: None. FINDINGS: Normal soft tissue structures. Normal calvarium. Normal size ventricles and extra-axial spaces for the patient's age. Normal white matter tracts of the cerebral hemispheres. Normal basal ganglia and thalami. Normal brainstem. Normal cerebellum. There is no intracranial hemorrhage. There are no findings of an acute ischemic infarction. Normal visualized paranasal sinuses. CT/Brain/Head without Contrast IMPRESSION: Normal unenhanced CT scan of the brain. Electronically Signed: Ahmet Fischer DO at 13:17 EDT Tel , Service support ,
--- NOTE | 2017-10-26 10:55 | RAD_ITS ---
STUDY: X-RAY CHEST REASON FOR EXAM: Male, 62 years old. Dizziness, headache 2 or 3 days. TECHNIQUE: PA and lateral chest COMPARISON: None. FINDINGS: Left pectoral dual-lead pacer device. Median sternotomy. Atrial appendage clip. Clear bilateral lungs. Normal cardiomediastinal silhouette, soren and pleural margins. No acute osseous or upper abdominal process. RAD/Chest PA and Lateral IMPRESSION: No acute cardiopulmonary process. Electronically Signed: Eliseo Mccarty, at 13:21 EDT Tel , Service support ,
[2017-10-26] MEDS: 0.9% Normal Saline 1,000 ML 250 ML IV (11:37)
--- NOTE | 2017-10-26 13:47 | ED.DCSUM_ITS ---
- ER Visit Summary Date of Service: 10/26/17 Chief Complaint: CT scan of brain History of Present Illness: The patient is a 62 M who presents from his primary doctor's office for headache and dizziness. Symptoms have been going on for days. He thought that he may be anemic. He has a history of GI bleeding. He has not noted any bleeding. His hemoglobin was done this morning and was unremarkable, stable. He also thought he might be dehydrated but his BMP was unremarkable. He was also concerned because he takes Eliquis that he might have intracranial bleeding. He denies any recent trauma. No weakness or numbness. No speech changes. No vision changes. Physical Examination: Afebrile and vital signs unremarkable. Nontoxic and in no acute distress. Head and neck are atraumatic. Cranial nerves grossly intact. Heart regular. Lungs clear. Abdomen soft. Skin appears normal. No focal or lateralizing neurologic is grossly. Test Results: Outside CBC and BMP were reviewed. I did obtain troponin which was normal. EKG showed a paced rhythm. Chest x-ray showed no acute process. CT head was normal. Emergency Department Course and Treatment: Patient was treated with Tylenol for headache. His vital signs and workup was unremarkable. He would like to go home. I advised him that we have not ruled out stroke, but that so far his workup in the emergency department has been normal. He will return for any new or worsening symptoms. Monitor for bleeding, increasing pain, or any neurologic symptoms. Patient discharged. Treatment Plan: As above Disposition: Discharged Impression: 1. Dizziness This note was generated with [employer] dictation software. It may contain incorrect words, spelling, and punctuation that were not noted in review of the chart prior to signing ED Disposition - Plan for ED Patient: Chief Complaint: Dizziness Referrals: Tapan Cuellar DO [Primary Care Provider] -
--- NOTE | 2017-10-26 13:47 | ED.DEP ---
ED Disposition - Plan for ED Patient: Chief Complaint: Dizziness Instructions: ED Dizziness [facility] Referrals: Tapan Cuellar DO [Primary Care Provider] -
[2017-10-26] MEDS: Acetaminophen 500 MG Tablet 1000 MG PO (14:06)
== END 2017-10-26 14:07 | disposition home or self-care (01) ==
LOC: ED 11:29
PROVIDERS: Emergency Provider Emergency Medicine; Family Provider Family Medicine; PCP Family Medicine
DX: R42 Dizziness and giddiness (principal); Z79.02 Long term (current) use of antithrombotics/antiplatelets; Z72.0 Tobacco use
CPT/HCPCS: 70450; 71046; 84484; 93005; 96360; 96361; 99283; J7030; A4216

== ENCOUNTER 2017-10-27 13:05 | Emergency (ER) | payer OTHER, SELFPAY ==
[2017-10-27] VITALS (10 sets, daily range): BP systolic 119–170; BP diastolic 75–95; PULSE 60–115; RESP 12–19; TEMP 36.5; O2SAT 96–99; BMI 26.7
--- NOTE | 2017-10-27 13:40 | ED.RN ---
DR CONN IN TO SEE PT. CALL IN TO NEURO
--- NOTE | 2017-10-27 13:43 | CT_ITS ---
STUDY: CTA NECK WITH CONTRAST REASON FOR EXAM: Male, 62 years old. SLURRED SPEECH, FACIAL DROOP, DIFF SWALLOWING, RT SIDED CHANGES. RADIATION DOSAGE (If Supplied By Facility): CTDIvol = ( 29.88 ) mGy, DLP = ( 740.76 ) mGycm TECHNIQUE: CT angiography with multi-detector data acquisition was performed from the aortic arch to the skull base following intravenous administration of 100 ml of Isovue 370 contrast. MIP images were reconstructed from the axial data set. Post-processing of the angiographic images was performed, with multiplanar reformation and 3D reconstruction. Individualized dose optimization techniques were used for this CT. COMPARISON: None. FINDINGS: AORTIC ARCH: Normal visualized aortic arch. Normal origins of the brachiocephalic, left common carotid, and left subclavian arteries. RIGHT CAROTID ARTERIES: Normal right common carotid artery (CCA). There is mild atherosclerotic plaque formation with minimal narrowing of the right carotid bulb. There is mild atherosclerotic plaque formation of the origin of the right internal carotid artery with less than 50% cross sectional diameter stenosis. Normal visualized cervical portion of the right internal carotid artery. Normal origin of the right external carotid artery (ECA). LEFT CAROTID ARTERIES: Normal left common carotid artery (CCA). Normal left common carotid bulb. There is mild atherosclerotic plaque formation of the origin of the left internal carotid artery with less than 50% cross sectional diameter stenosis. Normal visualized cervical portion of the left internal carotid artery. Normal origin of the left external carotid artery (ECA). VERTEBRAL ARTERIES: There is occlusion of the distal left vertebral artery at the intradural segment. CT/CTA Neck W/WO Contrast IMPRESSION: Distal left vertebral artery occlusion. Electronically Signed: Lucrecia Jade MD at 15:23 EDT Tel , Service support ,
--- NOTE | 2017-10-27 13:43 | CT_ITS ---
STUDY: CTA OF THE BRAIN REASON FOR EXAM: Male, 62 years old. SLURRED SPEECH, FACIAL DROOP, DIFF SWALLOWING, RT SIDED CHANGES. RADIATION DOSAGE (If Supplied By Facility): CTDIvol = ( 44.99 ) mGy, DLP = ( 801.73 ) mGycm TECHNIQUE: CT angiography was performed with a multi-detector CT scanner. Data acquisition was obtained from the skull base through the vertex following intravenous administration of ml of . MIP images were reconstructed from the axial data set. Post-processing of the angiographic images was performed, with multiplanar reformation and 3D reconstruction. Individualized dose optimization techniques were used for this CT. COMPARISON: None. FINDINGS: Normal bilateral petrous carotid arteries. There is calcified plaque formation of the right cavernous carotid artery, without a cross-sectional luminal stenosis. There is calcified plaque formation of the left cavernous carotid artery, without a cross-sectional luminal stenosis. Normal right A1 segments of the anterior cerebral artery. Normal left A1 segments of the anterior cerebral artery. Normal intact anterior communicating artery (ACOM). Normal bilateral A2 segments of the anterior cerebral arteries. Normal right M1 and M2 segments of the middle cerebral arteries, with a normal M1 bifurcation. Normal left M1 and M2 segments of the middle cerebral arteries, with a normal M1 bifurcation. There is non-visualization of the right posterior communicating artery (PCOM). There is non-visualization of the left posterior communicating artery (PCOM). The right vertebral artery is unremarkable. There is nonvisualization of the distal left vertebral artery at the intradural segment with suggestion of filling defect suspicious for thrombus. Normal basilar artery with a normal basilar bifurcation. The visualized bilateral superior cerebellar (SCA) arteries are normal. Normal bilateral P1, P2 and visualized P3 segments of the posterior cerebral arteries. There is no demonstrated aneurysm of the [place]. There is no demonstrated abnormality of the visualized brain. CT/CTA Head W/WO Contrast IMPRESSION: Occlusion/thrombus of the left vertebral artery. Further evaluation with MRI can be obtained. N.B. : The above information has been verbally conveyed by Samer Salhab, MD to Rocco Ayala, Covering Physician, on 10/27/2017 15:52:34 (ET). Electronically Signed: Lucrecia Jade MD at 15:26 EDT Tel , Service support ,
[2017-10-27 14:01] LABS: Absolute Lymphocyte Count 1.81 X10^3/ul (0.83-4.51); Absolute Neutrophil Count 3.1 X10^3/uL (2.0-7.7); Basophil# 0.01 X10^3/uL; Basophil% 0.2 % (0-1); Eosinophil# 0.01 X10^3/uL; Eosinophils% 0.2 % (0-5); Hematocrit 36.3 % (40-54); Hemoglobin 11.4 g/dl (13.0-16.5); Lymphocyte # 1.81 X10^3/ul (4.0); Lymphocyte % 33.8 % (19-41); Mean Corp Hgb Conc 31.4 g/gl (32-36); Mean Corpuscular Hgb 28.1 pg (27.0-32.0); Mean Corpuscular Volume 89.6 fL (80-94); Mean Platelet Vol. 9.5 fl (6.2-12.0); Monocyte% 7.5 % (0-10); Neutrophil # 3.12 X10^3/uL (2.7-7.7); Neutrophil % 58.3 % (47-70); Platelet Count 127 K/mm3 (150-450); RBC Distribution Width CV 20.9 % (11.6-14.6); RBC Distribution Width SD 69.1 fl (35.1-43.9); Red Blood Count 4.05 M/mm3 (4.6-6.2); White Blood Count 5.4 K/mm3 (4.4-11.0)
[2017-10-27 14:01] LABS: Bedside Glucose 82 mg/dL (70-110)
[2017-10-27 14:02] LABS: International Normalized Ratio 1.3; Prothrombin Time (Protime)PT. 16.4 SECONDS (11.7-14.9)
[2017-10-27 14:03] LABS: Differential Indicated SCAN CRITERIA MET; POSITIVE COUNT NO; POSITIVE DIFFERENTIAL NO; POSITIVE MORPHOLOGY YES; Partial Thromboplast Time 46.3 Seconds (24.1-36.2)
[2017-10-27 14:09] LABS: Anion Gap 1 (5-15); BUN 21 mg/dL (7-18); BUN/Creat Ratio 21.3 RATIO (10-20); Calcium,Total 8.3 mg/dL (8.5-10.1); Chloride 110 mmol/L (98-107); Creatinine, Serum 0.99 mg/dL (0.70-1.30); EST Glomerular Filtration Rate 82 mL/min (>60); Est Glom Filt Rate - Afr Amer 99 mL/min (>60); Glucose 81 mg/dL (74-106); Potassium 4.6 mmol/L (3.5-5.1); Sodium Level 139 mmol/L (136-145)
[2017-10-27 14:28] LABS: Anisocytosis 1+
--- NOTE | 2017-10-27 15:47 | NURSING ---
DR HECK PAGED
--- NOTE | 2017-10-27 16:11 | NURSING ---
CALLED [facility] FOR TRANSFER.
--- NOTE | 2017-10-27 16:21 | NURSING ---
DR JAN CONN
--- NOTE | 2017-10-27 16:26 | NURSING ---
DR CRISTOPHER CONN
--- NOTE | 2017-10-27 16:56 | ED.DCSUM_ITS ---
- ER Visit Summary Date of Service: 10/27/17 Chief Complaint: Possible stroke History of Present Illness: The patient is a 62 M with a possible stroke. The patient was seen yesterday by me in this ED for headache and dizziness. He had a workup which was fairly unremarkable, and no focal neurologic symptoms, and he had requested to go home. He was advised that he had not been fully evaluated for stroke, and to return with any new symptoms. Later yesterday evening he developed some trouble swallowing, and then when he woke up this morning at 7am he was having slurred speech and decreased temperature sensation in his right hand. He went to his eye doctor this morning. His eyes were dilated and he had a normal eye exam. He then went to his primary care doctor who was concerned for stroke and sent him to the emergency department. He takes Eliquis for a heart valve replacement. Physical Examination: Patient's vital signs are unremarkable. No acute distress. Alert and oriented. NIH of 2, 1 point for dysarthria, 1 point for sensory change on the right. Head and neck atraumatic. Pupils are dilated medically. Heart regular. Lungs clear. Abdomen soft. Test Results: EKG and repeat labs unremarkable. CTA head and neck showed a left vertebral artery thrombus distally. Right vertebral is normal. Emergency Department Course and Treatment: Patient returns with focal strokelike symptoms. He was not a candidate for stroke team or TPA. He was placed on a monitor and workup was initiated. I did speak with Dr. Nunes-- the patient is not a candidate for emergent MRI because of his pacemaker. The plan will be to check CTAs of the head and neck, and admit for further care. EKG and labs unremarkable, stable. CTA showed a left distal vertebral thrombus. Patient was discussed with neurology again. Dr. Nunes recommended evaluation by an endovascular specialist. He recommended or [facility]. I spoke with the patient, who was agreeable to . I spoke with the stroke neurologist, Dr. Mims. She did not feel that the patient would be an endovascular candidate, but did recommend that he goes to a stroke center with neurosurgery and neurology for likely medical management. The closest appropriate facility with available beds was [facility] and the patient was accepted by Dr. Hernandez. Treatment Plan: As above Disposition: Transfer Impression: 1. Acute stroke 2. Thrombus distal left vertebral artery This note was generated with [employer] dictation software. It may contain incorrect words, spelling, and punctuation that were not noted in review of the chart prior to signing ED Disposition - Plan for ED Patient: Disposition: Acute Care Hospital - Other Chief Complaint: Neuro S/Sx Referrals: Tapan Cuellar DO [Primary Care Provider] -
--- NOTE | 2017-10-27 17:17 | ED.RN ---
pt disconnects himself from monitor and helps himself to restroom. this nr reconnected pt to monitor. pt reports increased herrera on left side of head. dr. armijo informed. awaiting further orders.
[2017-10-27] MEDS: Morphine 4 MG/ML Syringe IV (17:38)
--- NOTE | 2017-10-27 17:55 | NURSING ---
[facility] 6TH FLOOR ROOM 634 REPORT [phone]
[2017-10-27] MEDS: fentaNYL 100 MCG/2 ML Ampul 50 MCG IV (18:34)
== END 2017-10-27 18:45 | disposition short-term general hospital (02) ==
PROVIDERS: Emergency Provider Emergency Medicine; Family Provider Family Medicine; PCP Family Medicine
DX: I63.012 Cerebral infarction due to thrombosis of left vertebral artery (principal); R13.10 Dysphagia, unspecified; R47.81 Slurred speech; R20.8 Other disturbances of skin sensation; R29.702 NIHSS score 2; D64.9 Anemia, unspecified; Z95.2 Presence of prosthetic heart valve; Z79.02 Long term (current) use of antithrombotics/antiplatelets; Z79.82 Long term (current) use of aspirin; Z79.899 Other long term (current) drug therapy
CPT/HCPCS: 70496; 70498; 80048; 82962; 84484; 85025; 85610; 85730; 93005; 96374; 96375; 99285; J7030; Q9967; A4216

== ENCOUNTER → 2017-11-04 08:27 | Outpatient (CLI) | payer OTHER, SELFPAY ==
[2017-11-04 10:15] LABS: AST(SGOT) 50 U/L (15-37); Alanine Aminotransfer ALT/SGPT 39 U/L (16-61); Albumin, Serum 2.5 g/dL (3.2-5.0); Alkaline Phosphatase 228 U/L (45-117); Bilirubin, Direct 0.37 mg/dL (0.00-0.30); Cholesterol 53 mg/dL (200); Globulin 5.4 g/dL (2.2-4.2); High Density Lipoprotein 12 mg/dL; Protein, Total 7.9 g/dL (6.4-8.2); Triglycerides 161 mg/dL; Very Low Density Lipoprotein 32 mg/dL (5-40)
== END ==
PROVIDERS: Family Provider Family Medicine; PCP Family Medicine; Visit Provider Internal Medicine Cardiovascular Disease
DX: I08.0 Rheumatic disorders of both mitral and aortic valves (principal); I51.7 Cardiomegaly; E78.5 Hyperlipidemia, unspecified; Z95.2 Presence of prosthetic heart valve; Z79.01 Long term (current) use of 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s
CPT/HCPCS: 36415; 80061; 80076

== ENCOUNTER → 2017-12-12 08:41 | Outpatient (CLI) | payer OTHER, SELFPAY ==
[2017-12-12 09:26] LABS: Hematocrit 25.6 % (40-54); Hemoglobin 7.9 g/dl (13.0-16.5); Mean Corp Hgb Conc 30.9 g/gl (32-36); Mean Corpuscular Volume 100.4 fL (80-94); Mean Platelet Vol. 9.4 fl (6.2-12.0); Platelet Count 123 K/mm3 (150-450); RBC Distribution Width CV 22.7 % (11.6-14.6); RBC Distribution Width SD 82.5 fl (35.1-43.9); Red Blood Count 2.55 M/mm3 (4.6-6.2); White Blood Count 4.7 K/mm3 (4.4-11.0)
[2017-12-12 09:27] LABS: Scan Indicated on CBC? Y/N YES- FLAGS NOTED
[2017-12-12 09:45] LABS: T4 Free Direct 1.26 ng/dL (0.76-1.46); Thyroid Stim Hormone (TSH) 2.04 uIU/mL (0.358-3.74)
[2017-12-12 09:46] LABS: BNP,B-Type NATRIURETIC PEPTIDE 1001.2 pg/mL (0-100)
[2017-12-12 09:55] LABS: Differential Comment SCANNED
== END ==
PROVIDERS: Physician Assistant Medical; Family Provider Family Medicine; PCP Family Medicine; Visit Provider Internal Medicine Cardiovascular Disease
DX: R06.02 Shortness of breath (principal); R60.9 Edema, unspecified; I25.10 Atherosclerotic heart disease of native coronary artery without angina pectoris; I35.0 Nonrheumatic aortic (valve) stenosis
CPT/HCPCS: 36415; 83880; 84439; 84443; 85027

== ENCOUNTER 2017-12-14 21:32 | Inpatient (IN) | payer OTHER, SELFPAY ==
[2017-12-14 21:33] VITALS: BP 124/65; PULSE 79; RESP 14; TEMP 37; O2SAT 98; BMI 28.4
[2017-12-14 21:43] VITALS: PULSE 78; TEMP 37
--- NOTE | 2017-12-14 22:54 | ED.VISSUMM ---
- ER Visit Summary Date of Service: 12/14/17 Chief Complaint: [] Low hemoglobin History of Present Illness: The patient is a 62 M complaining of low hemoglobin for last couple days. Checked on an outpatient routine blood lab. It was 7.9. Back in October his blood count was 11.4. Patient denies any symptoms. No blood in the stool. He has a history of remote GI bleeds. Last one was in July 2016. He does not notice any bleeding like that. He has chronic anemia due to a Elmer-en-Y surgery in 1995. He is iron deficient and does not absorb iron. He has required transfusions remotely. He had iron infusions last year but none this year. Physical Examination: [] Vital signs reviewed General: Well-nourished well-developed Head: Normocephalic atraumatic Eyes: Pupils equal round and reactive to light extraocular movements intact ENT: TMs clear no hemotympanum no trauma Neck: Nontender full range of motion Cardiovascular: Regular rate rhythm no murmurs normal S1-S2 Respiratory: No distress clear to auscultation bilaterally chest nontender Abdomen: Soft nontender nondistended normal bowel sounds no masses Back: Nontender no CVA tenderness Extremities: Nontender active range of motion ?4 extremities no trauma. 1+ lower extremity edema the ankles Skin: Normal color no trauma very mild petechiae in the lower legs in the calves and ankles. None elsewhere. Neuro alert oriented cranial nerves II through XII intact normal strength sensation reflexes Test Results: [] Emergency Department Course and Treatment: [] Patient is stable. Lab work obtained. Lab work shows hemoglobin 7.5. Hematocrit 23.7. Platelets stable at 132. Chemistries normal except potassium 5.4. Chloride 114. Creatinine is 4.1 BUN 70. Calcium 7.9. At 1.6. PTT is elevated for this 52.2. School stool guaiac showed brown stool and it was positive. Type and screen pending. Patient given IV fluids. At this time it appears he has nephrotic syndrome with acute renal insufficiency and acute anemia. Is unclear the cause at this time. I have a low suspicion for hemolytic uremic syndrome. Patient has no neurologic abnormalities to suggest TTP. Has no fevers as well. The stool that he had in his vault was brown. There was no dark color to it to suspect an occult GI bleed. The patient stated that he sometimes gets worse from sitting for a long time as this could explain it. However he will be admitted for further evaluation and treatment of the above. Treatment Plan: [] Disposition: [] Impression: [] Renal failure-acute Acute anemia Mild hyperkalemia Positive fecal occult blood test This note was generated with [employer] dictation software. It may contain incorrect words, spelling, and punctuation that were not noted in review of the chart prior to signing ED Disposition - Plan for ED Patient: Disposition: Acute Care Hospital [facility] Chief Complaint: Abn Labs
[2017-12-14 23:17] LABS: Absolute Lymphocyte Count 1.25 X10^3/ul (0.83-4.51); Basophil# 0.01 X10^3/uL; Basophil% 0.2 % (0-1); Eosinophil# 0.01 X10^3/uL; Eosinophils% 0.2 % (0-5); Hematocrit 23.7 % (40-54); Hemoglobin 7.5 g/dl (13.0-16.5); Lymphocyte # 1.25 X10^3/ul (4.0); Lymphocyte % 27.8 % (19-41); Mean Corp Hgb Conc 31.6 g/gl (32-36); Mean Corpuscular Hgb 31.6 pg (27.0-32.0); Mean Platelet Vol. 9.9 fl (6.2-12.0); Monocyte# 0.26 X10^3/uL; Monocyte% 5.8 % (0-10); Neutrophil # 2.96 X10^3/uL (2.7-7.7); Neutrophil % 65.8 % (47-70); Platelet Count 132 K/mm3 (150-450); RBC Distribution Width CV 22.7 % (11.6-14.6); Red Blood Count 2.37 M/mm3 (4.6-6.2); White Blood Count 4.5 K/mm3 (4.4-11.0)
[2017-12-14 23:19] LABS: International Normalized Ratio 1.6; Prothrombin Time (Protime)PT. 18.9 SECONDS (11.7-14.9)
[2017-12-14 23:20] LABS: Partial Thromboplast Time 52.2 Seconds (24.1-36.2)
[2017-12-14 23:21] LABS: Differential Indicated SCAN CRITERIA MET; POSITIVE COUNT NO; POSITIVE DIFFERENTIAL NO; POSITIVE MORPHOLOGY YES
[2017-12-14 23:22] LABS: Anion Gap 6 (5-15); BUN 70 mg/dL (7-18); Calcium,Total 7.9 mg/dL (8.5-10.1); Chloride 114 mmol/L (98-107); Creatinine, Serum 4.12 mg/dL (0.70-1.30); EST Glomerular Filtration Rate 16 mL/min (>60); Est Glom Filt Rate - Afr Amer 19 mL/min (>60); Estimated Creatinine Clearance 23.12 ml/min; Glucose 90 mg/dL (74-106); Potassium 5.4 mmol/L (3.5-5.1); Sodium Level 140 mmol/L (136-145)
[2017-12-14 23:32] LABS: Differential Comment SCANNED
[2017-12-14 23:43] VITALS: RESP 22; O2SAT 97
[2017-12-14] MEDS: 0.9% Normal Saline 1,000 ML 1000 ML IV (23:43)
[2017-12-15] VITALS (15 sets, daily range): BP systolic 109–154; BP diastolic 54–82; PULSE 60–88; RESP 16–20; TEMP 36.5–37.7; O2SAT 95–100; BMI 28.5; BMI 28.6
--- NOTE | 2017-12-15 00:07 | PCM.HP.STD ---
Problem List (1) Nicotine abuse Status: Chronic (2) Premature atrial contractions Status: Chronic (3) Left ventricular hypertrophy Status: Chronic (4) Presence of permanent cardiac pacemaker Status: Chronic Comment: [employer]; (5) Mitral valve insufficiency and aortic valve insufficiency Status: Chronic (6) Sick sinus syndrome Status: Chronic Comment: S/P permanent pacemaker 05/13/2017; (7) S/P aortic valve replacement Status: Chronic Comment: 27mm [employer] Rich[employer] Tirfecta pericardial valve (8) SOB (shortness of breath) Status: Acute (9) Hyperlipidemia Status: Chronic Qualifiers: (10) Ventricular hypertrophy Status: Chronic (11) ARF (acute renal failure) Status: Acute History of Present Illness Date of Admission: 12/15/17 Chief Complaint: fatigue and sob The patient is a 62 year old male patient with a significant past medical history of stroke, aortic valve replacement and pacemaker who presents to the ER with labs that are abnormal from outpatient clinical setting. BUN is 70 and creatinine is 4.12 and hemoglobin is 7.5. He has no history of kidney failure. 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 He has felt more fatigued and short of breath over the past several days. 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 He will be admitted for further management and nephrology consult. 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 Tirfecta pericardial valve Aortic stenosis (Chronic) S/P valve replacement with 27mm [employer] Richi Trifecta pericardial valve; Atherosclerotic heart disease of [place] coronary artery without angina pectoris (Chronic) Hyperlipidemia (Chronic) Ventricular hypertrophy (Chronic) Medical History: Medical History (Last Reviewed 11/16/17 @ 08:36 by Suzanne Ferris) Acute CVA (cerebrovascular accident) (Acute) Onset Date: 10/27/17 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) with 40 mm Atricure Atriclip with Dr. 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 Richi Trifecta pericardial valve; Atherosclerotic heart disease of [place] coronary artery without angina pectoris (Chronic) I25.10 Atrioventricular block, type I (Acute) I44.1 Premature ventricular contraction (Acute) I49.3 Abnormal EKG (Acute) R94.31 Hyperlipidemia (Acute) E78.5 Ventricular hypertrophy (Acute) I51.7 Bruit of left carotid artery (Acute) R09.89 Anemia, iron deficiency D50.9 Hypothyroidism E03.9 Retinal embolus H34.9 Tobacco abuse Z72.0 Allergies Penicillins Allergy (Verified 12/14/17 21:35) Hives Home Medications: Ambulatory Orders Medication Instructions Recorded ascorbic acid (vitamin C) 500 mg 500 mg PO QDAY ea 03/26/17 capsule levothyroxine 200 mcg tablet 200 mcg PO QDAY tab 03/26/17 pantoprazole 40 mg tablet,delayed 40 mg PO BID tab 03/26/17 release cyanocobalamin (vit B-12) 500 mcg 500 mcg PO QDAY 03/27/17 tablet aspirin 81 mg tablet,delayed 81 mg PO QDAY tab 05/18/17 release magnesium oxide 400 mg capsule 400 mg PO QDAY cap 05/18/17 multivitamin tablet 1 tab PO QDAY 05/18/17 metoprolol tartrate 25 mg tablet 12.5 mg PO BID tab 06/01/17 hydralazine 25 mg tablet 25 mg PO Q8H #90 tab 06/24/17 Acetaminophen [Tylenol Extra 500 mg PO Q4H PRN PRN 10/27/17 Strength] cholecalciferol (vitamin D3) 2,000 2,000 unit PO DAILY 11/16/17 unit tablet apixaban 5 mg tablet 5 mg PO BID #180 tab 12/01/17 atorvastatin 80 mg tablet 80 mg PO DAILY #90 tab 12/01/17 Surgical History: Surgical History (Last Reviewed 11/16/17 @ 08:36 by Suzanne Ferris) S/P aortic valve replacement (Chronic) Onset Date: ~05/07/[address] [employer] Tirfecta pericardial valve History of carpal tunnel surgery Z92.89 History of gastric bypass Z98.84 History of knee surgery Z98.890 Smoking Status: Current every day smoker - *Family History Maternal Family History: Family History (Last Reviewed 11/16/17 @ 08:36 by Suzanne Ferris) Father CAD (coronary artery disease) Mother CAD (coronary artery disease) Thyroid disorder Sister Thyroid cancer History Items: No pertinent history Review of Systems Constitutional: Reports: Malaise, Weakness, Fatigue. Denies: Chills, Fever, Weight Change HEENT: Denies: Head Aches, Sinus Congestion, Sinus Drainage Cardiovascular: Denies: Chest Pain, Palpitations Respiratory: Reports: Shortness of breath at rest. Denies: Cough, Sputum production Gastrointestinal: Denies: Abdominal Pain, Nausea, Vomiting Genitourinary: Denies: Dysuria Musculoskeletal: Denies: Joint Pain, Joint Tenderness Skin: Denies: Rash, Wounds Neurological: Denies: Numbness, Tingling, Focal weakness Psychiatric: Reports: Anxiety. Denies: Depression, Homicidal Ideations, Suicidal Ideations Hematologic/ Lymphatic: Denies: Easy Bruising, Easy Bleeding VTE Information - Inpt Only VTE Present on Admission: No VTE Mechan Device Prophylaxis: SCD's VTE Pharm Prophylaxis ordered?: No Patient Problems: Active and Suspected Problems (Last Reviewed 11/16/17 @ 08:36 by Suzanne Ferris) ARF (acute renal failure) (Acute) - Physical Exam General: Alert, Oriented x3, Cooperative HEENT: Atraumatic, Normocephalic Neck: Supple, No JVD, Negative Carotid Bruits Lungs: Clear to auscultation, Normal air movement, No rhonchi, No wheeze, No rales Cardiovascular: Regular rate, Regular Rhythm, Normal S1, Normal S2 Abdomen: Bowel Sounds Present, Soft, Non Tender Extremities: Capillary Refill Less than 3 Seconds, Edema - 2+ lower ext edema Skin: No rashes, No breakdown Musculoskeletal: No Tenderness to Palpation of Joints or Extremities Neurological: Neuro grossly intact Psych/Mental Status: Normal Affect, Appropriate Vital Signs Temp Pulse Resp BP Pulse Ox 98.6 F 78 22 H 124/65 H 97 12/14/17 21:43 12/14/17 21:43 12/14/17 23:43 12/14/17 21:33 12/14/17 23:43 Oxygen Flow Rate (L/min) 2 Oxygen Delivery Method Nasal Cannula Weight: 233 lb 11.04 oz Body Mass Index (BMI) 28.4 Finger Stick Blood Glucose 82 Microbiology Past 72 Hours 12/14/17 23:05 Stool Occult Blood (PAWAN) - Final Stool Occult Blood Positive Laboratory Tests Past 24 Hrs 12/14/17 12/14/17 12/14/17 22:20 22:20 22:20 WBC 4.5 RBC 2.37 L Hgb 7.5 L Hct 23.7 L MCV 100.0 H MCH 31.6 MCHC 31.6 L RDW 22.7 H RDW Differential 83.0 H Plt Count 132 L MPV 9.9 Immature Gran % (Auto) 0.200 Neut % (Auto) 65.8 Lymph % (Auto) 27.8 [place] % (Auto) 5.8 Eos % (Auto) 0.2 Baso % (Auto) 0.2 Absolute Neuts (auto) 3.0 Absolute Lymphs (auto) 1.25 Total Counted Not Reportable Differential Comment SCANNED PT 18.9 H INR 1.6 APTT 52.2 H Sodium 140 Potassium 5.4 H Chloride 114 H Carbon Dioxide 20.0 L Anion Gap 6 BUN 70 H Creatinine 4.12 H Estim Creat Clear Calc 23.12 Est GFR (MDRD) Af Amer 19 L Est GFR (MDRD) Non-Af 16 L BUN/Creatinine Ratio 17.0 Glucose 90 Calcium 7.9 L Blood Type Antibody Screen 12/14/17 23:18 WBC RBC Hgb Hct MCV MCH MCHC RDW RDW Differential Plt Count MPV Immature Gran % (Auto) Neut % (Auto) Lymph % (Auto) [place] % (Auto) Eos % (Auto) Baso % (Auto) Absolute Neuts (auto) Absolute Lymphs (auto) Total Counted Differential Comment PT INR APTT Sodium Potassium Chloride Carbon Dioxide Anion Gap BUN Creatinine Estim Creat Clear Calc Est GFR (MDRD) Af Amer Est GFR (MDRD) Non-Af BUN/Creatinine Ratio Glucose Calcium Blood Type Pending Antibody Screen Pending Assessment/Plan All Active Problems (Last Reviewed 11/16/17 @ 08:36 by Suzanne Ferris) ARF (acute renal failure) (Acute) Acute CVA (cerebrovascular accident) (Acute 10/27/17) 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) Atrial fibrillation (Acute) Sinus bradycardia (Acute) SOB (shortness of breath) (Acute) Atrioventricular block, type I (Acute) Premature ventricular contraction (Acute) Abnormal EKG (Acute) Bruit of left carotid artery (Acute) Acute conditions - acute renal failure - anemia Plan - admit to general medical floor - consult nephrology - bmp, cbc, PSA, urine sodium, urine osmolarity, serum osmolarity - continue routine home medications - consider PRBC transfusion in am - SCDs for DVT prophylaxis Code Visit Inpatient E&M: 46455 Init Hosp L3
--- NOTE | 2017-12-15 00:35 | NURSING ---
PAGE SENT TO DR VIZCARRA: DAKOTA RIVERA -MS211 FECAL OCCULT POSITIVE. THANKS. TORI PIERCE US ALSO PAGED TO FLOOR.
[2017-12-15 01:09] LABS: Urine Sodium 54 mmol/L (Not Establ.)
[2017-12-15 01:55] LABS: Bacteria 0 SEEN /hpf (None Seen); Mucous, Urine 0 SEEN /hpf (<or=2+); Squamous Epithelial Cells - UA 0 SEEN /hpf (0-5)
[2017-12-15 04:30] LABS: Glucose, Dipstick Normal (Normal); Ketone-Dipstick Negative (Negative); Leukocyte Esterase-Dipstick 25 /ul (Negative); Nitrite-Dipstick Negative (Negative); Occult Blood-Urine 250 /ul (Negative); Protein-Dipstick 100 mg/dl (Negative); Urine Bilirubin Dipstick Negative (Negative); Urine Urobilinogen 4 mg/dl (Normal)
[2017-12-15 04:55] LABS: Osmolality, Serum 315 mOsm/KG (280-301)
[2017-12-15 04:55] LABS: Osmolality, Urine 398 mOsm/KG
[2017-12-15 05:05] LABS: Color, Urine Amber (Yellow); Urine Clarity Sl Cldy (Clear); White Blood Cells 0-5 SEEN /hpf (0-5)
[2017-12-15 05:06] LABS: Red Blood Cells-Urine 50-100 SEEN /hpf (0-5); Yeast-Urine RARE /hpf (None Seen)
[2017-12-15] MEDS: Levothyroxine 100 MCG Tablet 200 MCG PO (05:59)
[2017-12-15] MEDS: hydrALAZINE 25 MG Tablet PO ×3 (05:59→20:26)
[2017-12-15 07:08] LABS: Absolute Lymphocyte Count 1.24 X10^3/ul (0.83-4.51); Absolute Neutrophil Count 2.2 X10^3/uL (2.0-7.7); Basophil# 0.01 X10^3/uL; Basophil% 0.3 % (0-1); Hematocrit 22.3 % (40-54); Hemoglobin 6.8 g/dl (13.0-16.5); Lymphocyte # 1.24 X10^3/ul (4.0); Lymphocyte % 33.2 % (19-41); Mean Corp Hgb Conc 30.5 g/gl (32-36); Mean Corpuscular Hgb 31.6 pg (27.0-32.0); Mean Corpuscular Volume 103.7 fL (80-94); Mean Platelet Vol. 9.8 fl (6.2-12.0); Monocyte# 0.32 X10^3/uL; Monocyte% 8.6 % (0-10); Neutrophil # 2.16 X10^3/uL (2.7-7.7); Neutrophil % 57.9 % (47-70); Platelet Count 115 K/mm3 (150-450); RBC Distribution Width CV 22.7 % (11.6-14.6); RBC Distribution Width SD 81.8 fl (35.1-43.9); Red Blood Count 2.15 M/mm3 (4.6-6.2); White Blood Count 3.7 K/mm3 (4.4-11.0)
[2017-12-15 07:10] LABS: Differential Indicated SCAN CRITERIA MET; POSITIVE COUNT NO; POSITIVE DIFFERENTIAL NO; POSITIVE MORPHOLOGY YES
[2017-12-15 07:17] LABS: Anion Gap 7 (5-15); BUN 67 mg/dL (7-18); BUN/Creat Ratio 16.9 RATIO (10-20); Calcium,Total 7.9 mg/dL (8.5-10.1); Chloride 114 mmol/L (98-107); Creatinine, Serum 3.96 mg/dL (0.70-1.30); EST Glomerular Filtration Rate 17 mL/min (>60); Est Glom Filt Rate - Afr Amer 20 mL/min (>60); Estimated Creatinine Clearance 24.05 ml/min; Glucose 102 mg/dL (74-106); Potassium 5.4 mmol/L (3.5-5.1); Sodium Level 141 mmol/L (136-145)
[2017-12-15] MEDS: Multivitamins,Therapeutic Tablet 1 TABLET PO (08:55)
[2017-12-15] MEDS: Pantoprazole Sodium 40 MG Tablet PO ×2 (08:55→20:25)
[2017-12-15] MEDS: Magnesium Oxide 400 MG Tablet PO (08:55)
[2017-12-15] MEDS: Metoprolol Tartrate 25 MG Tablet 12.5 MG PO ×2 (08:55→20:26)
[2017-12-15] MEDS: Ascorbic Acid 500 MG Tablet PO (08:56)
[2017-12-15] MEDS: Cyanocobalamin 500 MCG Tablet PO (08:56)
--- NOTE | 2017-12-15 09:28 | US_ITS ---
STUDY: RENAL ULTRASOUND - COMPLETE REASON FOR EXAM: Male, 62 years old. Acute renal failure. TECHNIQUE: Ultrasound evaluation of the kidneys was performed with real-time and static boles-scale imaging. COMPARISON: CT abdomen and pelvis November 12, 2012 was not available for comparison at the time of this dictation, but reports that study was reviewed. FINDINGS: RIGHT KIDNEY: Normal location of the right kidney, which is normal in size. The right kidney measures 12.1 x 6.3 x 5.5 cm. There is a normal cortex of the right kidney. The renal cortex measures 2.0 cm. There is no right renal mass or cyst. There are no right renal calculi. There is no right hydronephrosis. DISTAL RIGHT URETER: There is non-visualization of the distal right ureter. There is no demonstrated right ureterovesical junction calculus. There is no demonstrated right ureteral jet. LEFT KIDNEY: Normal location of the left kidney, which is normal in size. The left kidney measures 11.2 x 6.3 x 4.7 cm. There is a normal cortex of the left kidney. The renal cortex measures 1.8 cm. There is no left renal mass or cyst. There are no left renal calculi. There is no left hydronephrosis. Liver: The liver measures 18 cm. There is increased echogenicity consistent with fatty infiltration. The bile ducts are within normal limits. There is no demonstrated mass lesion. Gallbladder: There is a partially contracted gallbladder. The gallbladder wall measures 3.8 mm. There is a negative sonographic Kruger's sign. There is mild pericholecystic fluid. There are at least 2 rounded subcentimeter echogenic structures within the gallbladder, consistent with multiple gallstones. BLADDER: The urinary bladder is not visualized. US/Kidney and Bladder IMPRESSION: 1. Normal ultrasound of the kidneys. 2. The urinary bladder is not visualized. 3. Incidental note of gallstones and mild pericholecystic fluid. The gallbladder is partially contracted, precluding accurate evaluation of mural thickness. Acute cholecystitis is not excluded by this study, however. 4. Fatty infiltration of the liver. Electronically Signed: Christ Vela MD at 16:09 EDT , Service support ,
[2017-12-15 10:02] LABS: Ferritin 145 ng/mL (26-388)
[2017-12-15 10:30] LABS: Vitamin B12 > 2000 pg/mL (211-911)
[2017-12-15 10:45] LABS: Iron 62 ug/dL (65-175); Iron Binding Capacity,Total 159 ug/dL (250-450)
[2017-12-15] MEDS: 0.9% NaCl Peripheral Flush Adult/Peds IV (11:20)
--- NOTE | 2017-12-15 12:38 | PCM.CONS.R ---
Consultation - Renal 12/15/17 PCP/ Referring MD: Requesting physician: [] Primary care physician: Tapan Cuellar DO Reason for Consultation:: IRINA - History of Present Illness History of Present Illness: The patient is a 62 year old male who presents to the emergency room with profound weakness and shortness of breath for several days. He denied any chest pain, syncope, palpitations. He was found to be anemic with a hemoglobin 7.5 g. Hemoglobin is down to 6.8 g today and is scheduled for blood transfusion. He was recently hospitalized early October for facial droop and stroke symptoms. He was transferred to [facility] in [place] for follow-up care. He was discharged to home after hospitalized for 2 days. No intervention with IV contrast or TPA therapy was done based on patient history. His creatinine was normal at 0.95 in October 2017. Creatinine on admission was 4.12. He has no prior history for kidney disease that he is aware of. He did have CT with IV contrast back in October. He has noticed increased leg edema with shortness of breath after discharge from [facility]. He denies history of DVT or PE. Potassium level was elevated at 5.4. He has been drinking orange juice at home and eating bananas and V8. 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 He has a history of GI bleed multiple times and has been on PPI and Carafate for years. He required cauterization of bleeding site in the past. He denied any black tarry stools. He has been on IV iron therapy a year ago due to poor iron absorption from his Min-en-Y. He was taken off aspirin and Eliquis yesterday by cardiology that he has been on since his aortic valve replacement in April 2017. He also had atrial fibrillation with successful cardioversion. He had a pacemaker placed. Pacemaker was checked November 16. Echo from April 2017 showed preserved LV function. Apparently Echo performed at [facility] was reported to be normal according to family. 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 He just drove back from [place] yesterday prior to admission. He admits to not drinking as much fluids while he is on the road. Since his stroke in October he had trouble swallowing liquids more than solids. He does have a cough. Denied any fever or chills. Speech evaluation was ordered. - Allergies Allergies: Allergies Penicillins Allergy (Verified 12/14/17 21:35) Hives - Current Medications Current Medications: Current Medications Acetaminophen (Tylenol) 500 mg PO Q4H PRN PRN PRN Reason: PAIN Ascorbic Acid (Vitamin C) 500 mg PO DAILY [facility] Last Admin: 12/15/17 08:56 Dose: 500 mg Atorvastatin Calcium (Lipitor) 80 mg PO DAILY@2200 [facility] Cholecalciferol (Vitamin D) 2,000 unit PO DAILY [facility] Last Admin: 12/15/17 08:55 Dose: 2,000 unit Cyanocobalamin (Vitamin B12) 500 mcg PO DAILY [facility] Last Admin: 12/15/17 08:56 Dose: 500 mcg Hydralazine HCl (Apresoline) 25 mg PO Q8 [facility] Last Admin: 12/15/17 05:59 Dose: 25 mg Sodium Chloride () 250 mls @ 15 mls/hr IV .[id number] PRN PRN Reason: SALINE FLUSH Levothyroxine Sodium (Synthroid) 200 mcg PO DAILY@0600 [facility] Last Admin: 12/15/17 05:59 Dose: 200 mcg Magnesium Hydroxide (Milk Of Magnesia) 30 ml PO DAILY PRN PRN PRN Reason: Constipation Magnesium Oxide (Mag-Ox 400) 400 mg PO DAILY [facility] Last Admin: 12/15/17 08:55 Dose: 400 mg Metoprolol Tartrate (Lopressor (Beta [place])) 12.5 mg PO BID [facility] Last Admin: 12/15/17 08:55 Dose: 12.5 mg [facility]it[facility] ([facility]itamin) [facility] Last Admin: 12/15/17 08:55 Dose: 1 tablet Pantoprazole Sodium (Protonix) 40 mg PO BID [facility] Last Admin: 12/15/17 08:55 Dose: 40 mg Sodium Chloride () 5 - 30 ml IV UD PRN PRN Reason: SALINE FLUSH Last Admin: 12/15/17 11:20 Dose: 20 ml - Past Medical History Past Medical History (Chronic Problems): Chronic Problems (Last Reviewed 11/16/17 @ 08:36 by Suzanne Ferris) Nicotine abuse (Chronic) Premature atrial contractions (Chronic) Left ventricular hypertrophy (Chronic) jail current use of 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 (Chronic) Presence of permanent cardiac pacemaker (Chronic ~05/13/17) [employer]; Mitral valve insufficiency and aortic valve insufficiency (Chronic) Sick sinus syndrome (Chronic) S/P permanent pacemaker 05/13/2017; S/P aortic valve replacement (Chronic ~05/07/17) 27mm [employer] Tirfecta pericardial valve Aortic stenosis (Chronic) S/P valve replacement with 27mm [employer]i Trifecta pericardial valve; Atherosclerotic heart disease of [place] coronary artery without angina pectoris (Chronic) Hyperlipidemia (Chronic) Ventricular hypertrophy (Chronic) - Past Surgical History Surgical History: coronary bypass surgery - AVR Apr 2017, Min-en-y 1996, pacemaker implantation - Social History Smoking Status: Current some day smoker - Family History Maternal Family History: Family History (Last Reviewed 11/16/17 @ 08:36 by Suzanne Ferris) Father CAD (coronary artery disease) Mother CAD (coronary artery disease) Thyroid disorder Sister Thyroid cancer History Items: No pertinent history Review of Systems Constitutional: Reports: Anorexia, Weakness - attributed to his anemia. Denies: Chills, Fever Eyes: Denies: Vision Change HEENT: Reports: Head Aches - Intermittently Cardiovascular: Reports: Edema, Light Headedness. Denies: Chest Pain, Palpitations, Syncope Respiratory: Reports: Cough, Shortness of Breath, Shortness of breath upon exertion. Denies: Hemoptysis, Wheezing Gastrointestinal: Reports: - - Decreased intake., - - History of GI bleed, room 1.. Denies: Abdominal Pain, Constipation, Diarrhea, Nausea, Vomiting Genitourinary: Reports: - - Decreased urine output with decreased fluid intake. Denies: Dysuria Musculoskeletal: Reports: - - Leg edema past several days. Denies: Back Pain Skin: Reports: Rash - Punctated petechial rash while on Eliquis Neurological: Reports: Balance problems, Change in Speech, Slurred speech - Slurred speech with recent stroke, - - Difficulty swallowing, right facial droop on corner of mouth. Denies: Numbness, Tremor, Seizures Psychiatric: Denies: Anxiety, Depression Hematologic/ Lymphatic: Reports: Petechiae. Denies: Hx of blood clot Patient Problems: Active and Suspected Problems (Last Reviewed 11/16/17 @ 08:36 by Suzanne Ferris) ARF (acute renal failure) (Acute) - Physical Exam General: Alert, Oriented x3, Cooperative, No apparent distress, - - Week HEENT: Atraumatic, PERRLA, EOMI Oral: Dry Mucosa Neck: Supple Lungs: Rales - Bibasilar Cardiovascular: Regular rate, - Abdomen: Bowel Sounds Present, Soft, Non Tender, Non-Distended Extremities: Edema - 1+ pitting Skin: - - Punctated ecchymosis Musculoskeletal: No Muscle Wasting Neurological: Facial Droop - Slight on right Psych/Mental Status: Normal Affect, Appropriate, Alert and oriented to time, place, person, mood and affect Vital Signs Temp Pulse Resp BP Pulse Ox 98.3 F 66 18 130/79 H 100 12/15/17 12:26 12/15/17 12:26 12/15/17 12:26 12/15/17 12:26 12/15/17 12:26 Oxygen Flow Rate (L/min) 2 Oxygen Delivery Method Nasal Cannula Weight: 106.594 kg Body Mass Index (BMI) 28.5 Finger Stick Blood Glucose 82 Intake and Output for Last 24 Hours 12/13/17 12/14/17 12/15/17 23:59 23:59 23:59 Intake Total 220 / 220 Output Total 280 / 280 Balance -60 / -60 Microbiology Past 72 Hours 12/14/17 23:05 Stool Occult Blood (PAWAN) - Final Stool Occult Blood Positive Laboratory Tests Past 24 Hrs 12/14/17 12/14/17 12/14/17 22:20 22:20 22:20 WBC 4.5 RBC 2.37 L Hgb 7.5 L Hct 23.7 L MCV 100.0 H MCH 31.6 MCHC 31.6 L RDW 22.7 H RDW Differential 83.0 H Plt Count 132 L MPV 9.9 Immature Gran % (Auto) 0.200 Neut % (Auto) 65.8 Lymph % (Auto) 27.8 Cavalier % (Auto) 5.8 Eos % (Auto) 0.2 Baso % (Auto) 0.2 Absolute Neuts (auto) 3.0 Absolute Lymphs (auto) 1.25 Total Counted Not Reportable Differential Comment SCANNED PT 18.9 H INR 1.6 APTT 52.2 H Sodium 140 Potassium 5.4 H Chloride 114 H Carbon Dioxide 20.0 L Anion Gap 6 BUN 70 H Creatinine 4.12 H Estim Creat Clear Calc 23.12 Est GFR (MDRD) Af Amer 19 L Est GFR (MDRD) Non-Af 16 L BUN/Creatinine Ratio 17.0 Glucose 90 Serum Osmolality Calcium 7.9 L Iron TIBC Iron Saturation Ferritin Vitamin B12 Folate Urine Color Urine Clarity Urine pH Ur Specific [place] Urine Protein Urine Glucose (UA) Urine Ketones Urine Occult Blood Urine Nitrite Urine Bilirubin Urine Urobilinogen Ur Leukocyte Esterase Urine RBC Urine WBC Ur Squamous Epith Cells Urine Bacteria Urine Mucus Urine Yeast Urine Osmolality Ur Random Sodium Blood Type Antibody Screen Crossmatch 12/14/17 12/14/17 12/15/17 23:18 23:18 00:00 WBC RBC Hgb Hct MCV MCH MCHC RDW RDW Differential Plt Count MPV Immature Gran % (Auto) Neut % (Auto) Lymph % (Auto) [place] % (Auto) Eos % (Auto) Baso % (Auto) Absolute Neuts (auto) Absolute Lymphs (auto) Total Counted Differential Comment PT INR APTT Sodium Potassium Chloride Carbon Dioxide Anion Gap BUN Creatinine Estim Creat Clear Calc Est GFR (MDRD) Af Amer Est GFR (MDRD) Non-Af BUN/Creatinine Ratio Glucose Serum Osmolality 315 H Calcium Iron TIBC Iron Saturation Ferritin Vitamin B12 Folate Urine Color Urine Clarity Urine pH Ur Specific [place] Urine Protein Urine Glucose (UA) Urine Ketones Urine Occult Blood Urine Nitrite Urine Bilirubin Urine Urobilinogen Ur Leukocyte Esterase Urine RBC Urine WBC Ur Squamous Epith Cells Urine Bacteria Urine Mucus Urine Yeast Urine Osmolality Ur Random Sodium Blood Type A POSITIVE Antibody Screen NEGATIVE Crossmatch See Detail 12/15/17 12/15/17 12/15/17 00:40 00:40 00:40 WBC RBC Hgb Hct MCV MCH MCHC RDW RDW Differential Plt Count MPV Immature Gran % (Auto) Neut % (Auto) Lymph % (Auto) [place] % (Auto) Eos % (Auto) Baso % (Auto) Absolute Neuts (auto) Absolute Lymphs (auto) Total Counted Differential Comment PT INR APTT Sodium Potassium Chloride Carbon Dioxide Anion Gap BUN Creatinine Estim Creat Clear Calc Est GFR (MDRD) Af Amer Est GFR (MDRD) Non-Af BUN/Creatinine Ratio Glucose Serum Osmolality Calcium Iron TIBC Iron Saturation Ferritin Vitamin B12 Folate Urine Color Bridget Urine Clarity Sl Cldy Urine pH 5.0 Ur Specific [place] 1.010 Urine Protein 100 H Urine Glucose (UA) Normal Urine Ketones Negative Urine Occult Blood 250 H Urine Nitrite Negative Urine Bilirubin Negative Urine Urobilinogen 4 H Ur Leukocyte Esterase 25 H Urine RBC 50-100 SEEN Urine WBC 0-5 SEEN Ur Squamous Epith Cells 0 SEEN Urine Bacteria 0 SEEN Urine Mucus 0 SEEN Urine Yeast RARE Urine Osmolality 398 Ur Random Sodium 54 Blood Type Antibody Screen Crossmatch 12/15/17 12/15/17 12/15/17 06:23 06:23 06:23 WBC 3.7 L RBC 2.15 L Hgb 6.8 L Hct 22.3 L MCV 103.7 H MCH 31.6 MCHC 30.5 L RDW 22.7 H RDW Differential 81.8 H Plt Count 115 L MPV 9.8 Immature Gran % (Auto) 0.000 Neut % (Auto) 57.9 Lymph % (Auto) 33.2 [place] % (Auto) 8.6 Eos % (Auto) 0.0 Baso % (Auto) 0.3 Absolute Neuts (auto) 2.2 Absolute Lymphs (auto) 1.24 Total Counted Not Reportable Differential Comment COMMENT PT INR APTT Sodium 141 Potassium 5.4 H Chloride 114 H Carbon Dioxide 20.0 L Anion Gap 7 BUN 67 H Creatinine 3.96 H Estim Creat Clear Calc 24.05 Est GFR (MDRD) Af Amer 20 L Est GFR (MDRD) Non-Af 17 L BUN/Creatinine Ratio 16.9 Glucose 102 Serum Osmolality Calcium 7.9 L Iron TIBC Iron Saturation Ferritin Vitamin B12 > 2000 H Folate Urine Color Urine Clarity Urine pH Ur Specific [place] Urine Protein Urine Glucose (UA) Urine Ketones Urine Occult Blood Urine Nitrite Urine Bilirubin Urine Urobilinogen Ur Leukocyte Esterase Urine RBC Urine WBC Ur Squamous Epith Cells Urine Bacteria Urine Mucus Urine Yeast Urine Osmolality Ur Random Sodium Blood Type Antibody Screen Crossmatch 12/15/17 12/15/17 06:23 06:23 WBC RBC Hgb Hct MCV MCH MCHC RDW RDW Differential Plt Count MPV Immature Gran % (Auto) Neut % (Auto) Lymph % (Auto) [place] % (Auto) Eos % (Auto) Baso % (Auto) Absolute Neuts (auto) Absolute Lymphs (auto) Total Counted Differential Comment PT INR APTT Sodium Potassium Chloride Carbon Dioxide Anion Gap BUN Creatinine Estim Creat Clear Calc Est GFR (MDRD) Af Amer Est GFR (MDRD) Non-Af BUN/Creatinine Ratio Glucose Serum Osmolality Calcium Iron 62 L TIBC 159 L Iron Saturation 39.0 Ferritin 145 Vitamin B12 Folate 44.60 Urine Color Urine Clarity Urine pH Ur Specific [place] Urine Protein Urine Glucose (UA) Urine Ketones Urine Occult Blood Urine Nitrite Urine Bilirubin Urine Urobilinogen Ur Leukocyte Esterase Urine RBC Urine WBC Ur Squamous Epith Cells Urine Bacteria Urine Mucus Urine Yeast Urine Osmolality Ur Random Sodium Blood Type Antibody Screen Crossmatch Assessment/Plan All Active Problems (Last Reviewed 11/16/17 @ 08:36 by Suzanne Ferris) ARF (acute renal failure) (Acute) Acute CVA (cerebrovascular accident) (Acute 10/27/17) 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) Atrial fibrillation (Acute) Sinus bradycardia (Acute) SOB (shortness of breath) (Acute) Atrioventricular block, type I (Acute) Premature ventricular contraction (Acute) Abnormal EKG (Acute) Bruit of left carotid artery (Acute) 1. IRINA baseline creatinine 0.99 in October increased to 4.2 on admission to 3.9 today. Last iv contrast exposure in October when seen in ER for stroke symptoms with subsequent transfer to [facility]. Records from [facility] hospitalization not available. LVEF with preserved cardiac function but pt with recent episode of edema. He has mild leukopenia with anemia. Urine with protein and blood. [place] catheter placement to monitor urine output, check renal us. Check for inflammatory disorder. Etiology for renal failure unclear. 2. Profound anemia off Eliquis and ASA yesterday, stool + for occult blood. Mild petechial rash on hands and legs may be from trauma on anticoagulation but will evaluate for vasculitis 3. Hx GI bleed, min-en-y on PPI 4. CAD s/p CABG, AVR bioprosthetic valve 5. Leg edema with nonnephrotic proteinuria. UPCR 1.5g/gCr. 6. Hx recent stroke with facial droop, dysphagia. Swallow eval. 7. Cough CXR evaluate for aspiration pneumonia 8. Hx afib with pacemaker 9.Hyperlipidemia on statins
--- NOTE | 2017-12-15 12:42 | CON.PCM_ITS ---
Consultation - Renal 12/15/17 PCP/ Referring MD: Requesting physician: [] Primary care physician: Tapan Cuellar DO Reason for Consultation:: IRINA - History of Present Illness History of Present Illness: The patient is a 62 year old male who presents to the emergency room with profound weakness and shortness of breath for several days. He denied any chest pain, syncope, palpitations. He was found to be anemic with a hemoglobin 7.5 g. Hemoglobin is down to 6.8 g today and is scheduled for blood transfusion. He was recently hospitalized early October for facial droop and stroke symptoms. He was transferred to [facility] in [place] for follow-up care. He was discharged to home after hospitalized for 2 days. No intervention with IV contrast or TPA therapy was done based on patient history. His creatinine was normal at 0.95 in October 2017. Creatinine on admission was 4.12. He has no prior history for kidney disease that he is aware of. He did have CT with IV contrast back in October. He has noticed increased leg edema with shortness of breath after discharge from [facility]. He denies history of DVT or PE. Potassium level was elevated at 5.4. He has been drinking orange juice at home and eating bananas and V8. 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 He has a history of GI bleed multiple times and has been on PPI and Carafate for years. He required cauterization of bleeding site in the past. He denied any black tarry stools. He has been on IV iron therapy a year ago due to poor iron absorption from his Min-en-Y. He was taken off aspirin and Eliquis yesterday by cardiology that he has been on since his aortic valve replacement in April 2017. He also had atrial fibrillation with successful cardioversion. He had a pacemaker placed. Pacemaker was checked November 16. Echo from April 2017 showed preserved LV function. Apparently Echo performed at [facility] was reported to be normal according to family. 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 He just drove back from [place] yesterday prior to admission. He admits to not drinking as much fluids while he is on the road. Since his stroke in October he had trouble swallowing liquids more than solids. He does have a cough. Denied any fever or chills. Speech evaluation was ordered. - Allergies Allergies: Allergies Penicillins Allergy (Verified 12/14/17 21:35) Hives - Current Medications Current Medications: Current Medications Acetaminophen (Tylenol) 500 mg PO Q4H PRN PRN PRN Reason: PAIN Ascorbic Acid (Vitamin C) 500 mg PO DAILY [facility] Last Admin: 12/15/17 08:56 Dose: 500 mg Atorvastatin Calcium (Lipitor) 80 mg PO DAILY@2200 [facility] Cholecalciferol (Vitamin D) 2,000 unit PO DAILY [facility] Last Admin: 12/15/17 08:55 Dose: 2,000 unit Cyanocobalamin (Vitamin B12) 500 mcg PO DAILY [facility] Last Admin: 12/15/17 08:56 Dose: 500 mcg Hydralazine HCl (Apresoline) 25 mg PO Q8 [facility] Last Admin: 12/15/17 05:59 Dose: 25 mg Sodium Chloride () 250 mls @ 15 mls/hr IV .[id number] PRN PRN Reason: SALINE FLUSH Levothyroxine Sodium (Synthroid) 200 mcg PO DAILY@0600 [facility] Last Admin: 12/15/17 05:59 Dose: 200 mcg Magnesium Hydroxide (Milk Of Magnesia) 30 ml PO DAILY PRN PRN PRN Reason: Constipation Magnesium Oxide (Mag-Ox 400) 400 mg PO DAILY [facility] Last Admin: 12/15/17 08:55 Dose: 400 mg Metoprolol Tartrate (Lopressor (Beta [place])) 12.5 mg PO BID [facility] Last Admin: 12/15/17 08:55 Dose: 12.5 mg [facility]ivit[facility]amin) [facility] Last Admin: 12/15/17 08:55 Dose: 1 tablet Pantoprazole Sodium (Protonix) 40 mg PO BID [facility] Last Admin: 12/15/17 08:55 Dose: 40 mg Sodium Chloride () 5 - 30 ml IV UD PRN PRN Reason: SALINE FLUSH Last Admin: 12/15/17 11:20 Dose: 20 ml - Past Medical History Past Medical History (Chronic Problems): Chronic Problems (Last Reviewed 11/16/17 @ 08:36 by Suzanne Ferris) Nicotine abuse (Chronic) Premature atrial contractions (Chronic) Left ventricular hypertrophy (Chronic) care home current use of 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 (Chronic) Presence of permanent cardiac pacemaker (Chronic ~05/13/17) [employer]; Mitral valve insufficiency and aortic valve insufficiency (Chronic) Sick sinus syndrome (Chronic) S/P permanent pacemaker 05/13/2017; S/P aortic valve replacement (Chronic ~05/07/17) 27mm [employer] Tirfecta pericardial valve Aortic stenosis (Chronic) S/P valve replacement with 27mm [employer] Richi Trifecta pericardial valve; Atherosclerotic heart disease of [place] coronary artery without angina pectoris (Chronic) Hyperlipidemia (Chronic) Ventricular hypertrophy (Chronic) - Past Surgical History Surgical History: coronary bypass surgery - AVR Apr 2017, Min-en-y 1996, pacemaker implantation - Social History Smoking Status: Current some day smoker - Family History Maternal Family History: Family History (Last Reviewed 11/16/17 @ 08:36 by Suzanne Ferris) Father CAD (coronary artery disease) Mother CAD (coronary artery disease) Thyroid disorder Sister Thyroid cancer History Items: No pertinent history Review of Systems Constitutional: Reports: Anorexia, Weakness - attributed to his anemia. Denies: Chills, Fever Eyes: Denies: Vision Change HEENT: Reports: Head Aches - Intermittently Cardiovascular: Reports: Edema, Light Headedness. Denies: Chest Pain, Palpitations, Syncope Respiratory: Reports: Cough, Shortness of Breath, Shortness of breath upon exertion. Denies: Hemoptysis, Wheezing Gastrointestinal: Reports: - - Decreased intake., - - History of GI bleed, room 1.. Denies: Abdominal Pain, Constipation, Diarrhea, Nausea, Vomiting Genitourinary: Reports: - - Decreased urine output with decreased fluid intake. Denies: Dysuria Musculoskeletal: Reports: - - Leg edema past several days. Denies: Back Pain Skin: Reports: Rash - Punctated petechial rash while on Eliquis Neurological: Reports: Balance problems, Change in Speech, Slurred speech - Slurred speech with recent stroke, - - Difficulty swallowing, right facial droop on corner of mouth. Denies: Numbness, Tremor, Seizures Psychiatric: Denies: Anxiety, Depression Hematologic/ Lymphatic: Reports: Petechiae. Denies: Hx of blood clot Patient Problems: Active and Suspected Problems (Last Reviewed 11/16/17 @ 08:36 by Suzanne Ferris) ARF (acute renal failure) (Acute) - Physical Exam General: Alert, Oriented x3, Cooperative, No apparent distress, - - Week HEENT: Atraumatic, PERRLA, EOMI Oral: Dry Mucosa Neck: Supple Lungs: Rales - Bibasilar Cardiovascular: Regular rate, - Abdomen: Bowel Sounds Present, Soft, Non Tender, Non-Distended Extremities: Edema - 1+ pitting Skin: - - Punctated ecchymosis Musculoskeletal: No Muscle Wasting Neurological: Facial Droop - Slight on right Psych/Mental Status: Normal Affect, Appropriate, Alert and oriented to time, place, person, mood and affect Vital Signs Temp Pulse Resp BP Pulse Ox 98.3 F 66 18 130/79 H 100 12/15/17 12:26 12/15/17 12:26 12/15/17 12:26 12/15/17 12:26 12/15/17 12:26 Oxygen Flow Rate (L/min) 2 Oxygen Delivery Method Nasal Cannula Weight: 106.594 kg Body Mass Index (BMI) 28.5 Finger Stick Blood Glucose 82 Intake and Output for Last 24 Hours 12/13/17 12/14/17 12/15/17 23:59 23:59 23:59 Intake Total 220 / 220 Output Total 280 / 280 Balance -60 / -60 Microbiology Past 72 Hours 12/14/17 23:05 Stool Occult Blood (PAWAN) - Final Stool Occult Blood Positive Laboratory Tests Past 24 Hrs 12/14/17 12/14/17 12/14/17 22:20 22:20 22:20 WBC 4.5 RBC 2.37 L Hgb 7.5 L Hct 23.7 L MCV 100.0 H MCH 31.6 MCHC 31.6 L RDW 22.7 H RDW Differential 83.0 H Plt Count 132 L MPV 9.9 Immature Gran % (Auto) 0.200 Neut % (Auto) 65.8 Lymph % (Auto) 27.8 Young % (Auto) 5.8 Eos % (Auto) 0.2 Baso % (Auto) 0.2 Absolute Neuts (auto) 3.0 Absolute Lymphs (auto) 1.25 Total Counted Not Reportable Differential Comment SCANNED PT 18.9 H INR 1.6 APTT 52.2 H Sodium 140 Potassium 5.4 H Chloride 114 H Carbon Dioxide 20.0 L Anion Gap 6 BUN 70 H Creatinine 4.12 H Estim Creat Clear Calc 23.12 Est GFR (MDRD) Af Amer 19 L Est GFR (MDRD) Non-Af 16 L BUN/Creatinine Ratio 17.0 Glucose 90 Serum Osmolality Calcium 7.9 L Iron TIBC Iron Saturation Ferritin Vitamin B12 Folate Urine Color Urine Clarity Urine pH Ur Specific [place] Urine Protein Urine Glucose (UA) Urine Ketones Urine Occult Blood Urine Nitrite Urine Bilirubin Urine Urobilinogen Ur Leukocyte Esterase Urine RBC Urine WBC Ur Squamous Epith Cells Urine Bacteria Urine Mucus Urine Yeast Urine Osmolality Ur Random Sodium Blood Type Antibody Screen Crossmatch 12/14/17 12/14/17 12/15/17 23:18 23:18 00:00 WBC RBC Hgb Hct MCV MCH MCHC RDW RDW Differential Plt Count MPV Immature Gran % (Auto) Neut % (Auto) Lymph % (Auto) Young % (Auto) Eos % (Auto) Baso % (Auto) Absolute Neuts (auto) Absolute Lymphs (auto) Total Counted Differential Comment PT INR APTT Sodium Potassium Chloride Carbon Dioxide Anion Gap BUN Creatinine Estim Creat Clear Calc Est GFR (MDRD) Af Amer Est GFR (MDRD) Non-Af BUN/Creatinine Ratio Glucose Serum Osmolality 315 H Calcium Iron TIBC Iron Saturation Ferritin Vitamin B12 Folate Urine Color Urine Clarity Urine pH Ur Specific [place] Urine Protein Urine Glucose (UA) Urine Ketones Urine Occult Blood Urine Nitrite Urine Bilirubin Urine Urobilinogen Ur Leukocyte Esterase Urine RBC Urine WBC Ur Squamous Epith Cells Urine Bacteria Urine Mucus Urine Yeast Urine Osmolality Ur Random Sodium Blood Type A POSITIVE Antibody Screen NEGATIVE Crossmatch See Detail 12/15/17 12/15/17 12/15/17 00:40 00:40 00:40 WBC RBC Hgb Hct MCV MCH MCHC RDW RDW Differential Plt Count MPV Immature Gran % (Auto) Neut % (Auto) Lymph % (Auto) Young % (Auto) Eos % (Auto) Baso % (Auto) Absolute Neuts (auto) Absolute Lymphs (auto) Total Counted Differential Comment PT INR APTT Sodium Potassium Chloride Carbon Dioxide Anion Gap BUN Creatinine Estim Creat Clear Calc Est GFR (MDRD) Af Amer Est GFR (MDRD) Non-Af BUN/Creatinine Ratio Glucose Serum Osmolality Calcium Iron TIBC Iron Saturation Ferritin Vitamin B12 Folate Urine Color Bridget Urine Clarity Sl Cldy Urine pH 5.0 Ur Specific Alto 1.010 Urine Protein 100 H Urine Glucose (UA) Normal Urine Ketones Negative Urine Occult Blood 250 H Urine Nitrite Negative Urine Bilirubin Negative Urine Urobilinogen 4 H Ur Leukocyte Esterase 25 H Urine RBC 50-100 SEEN Urine WBC 0-5 SEEN Ur Squamous Epith Cells 0 SEEN Urine Bacteria 0 SEEN Urine Mucus 0 SEEN Urine Yeast RARE Urine Osmolality 398 Ur Random Sodium 54 Blood Type Antibody Screen Crossmatch 12/15/17 12/15/17 12/15/17 06:23 06:23 06:23 WBC 3.7 L RBC 2.15 L Hgb 6.8 L Hct 22.3 L MCV 103.7 H MCH 31.6 MCHC 30.5 L RDW 22.7 H RDW Differential 81.8 H Plt Count 115 L MPV 9.8 Immature Gran % (Auto) 0.000 Neut % (Auto) 57.9 Lymph % (Auto) 33.2 Young % (Auto) 8.6 Eos % (Auto) 0.0 Baso % (Auto) 0.3 Absolute Neuts (auto) 2.2 Absolute Lymphs (auto) 1.24 Total Counted Not Reportable Differential Comment COMMENT PT INR APTT Sodium 141 Potassium 5.4 H Chloride 114 H Carbon Dioxide 20.0 L Anion Gap 7 BUN 67 H Creatinine 3.96 H Estim Creat Clear Calc 24.05 Est GFR (MDRD) Af Amer 20 L Est GFR (MDRD) Non-Af 17 L BUN/Creatinine Ratio 16.9 Glucose 102 Serum Osmolality Calcium 7.9 L Iron TIBC Iron Saturation Ferritin Vitamin B12 > 2000 H Folate Urine Color Urine Clarity Urine pH Ur Specific [place] Urine Protein Urine Glucose (UA) Urine Ketones Urine Occult Blood Urine Nitrite Urine Bilirubin Urine Urobilinogen Ur Leukocyte Esterase Urine RBC Urine WBC Ur Squamous Epith Cells Urine Bacteria Urine Mucus Urine Yeast Urine Osmolality Ur Random Sodium Blood Type Antibody Screen Crossmatch 12/15/17 12/15/17 06:23 06:23 WBC RBC Hgb Hct MCV MCH MCHC RDW RDW Differential Plt Count MPV Immature Gran % (Auto) Neut % (Auto) Lymph % (Auto) Young % (Auto) Eos % (Auto) Baso % (Auto) Absolute Neuts (auto) Absolute Lymphs (auto) Total Counted Differential Comment PT INR APTT Sodium Potassium Chloride Carbon Dioxide Anion Gap BUN Creatinine Estim Creat Clear Calc Est GFR (MDRD) Af Amer Est GFR (MDRD) Non-Af BUN/Creatinine Ratio Glucose Serum Osmolality Calcium Iron 62 L TIBC 159 L Iron Saturation 39.0 Ferritin 145 Vitamin B12 Folate 44.60 Urine Color Urine Clarity Urine pH Ur Specific [place] Urine Protein Urine Glucose (UA) Urine Ketones Urine Occult Blood Urine Nitrite Urine Bilirubin Urine Urobilinogen Ur Leukocyte Esterase Urine RBC Urine WBC Ur Squamous Epith Cells Urine Bacteria Urine Mucus Urine Yeast Urine Osmolality Ur Random Sodium Blood Type Antibody Screen Crossmatch Assessment/Plan All Active Problems (Last Reviewed 11/16/17 @ 08:36 by Suzanne Ferris) ARF (acute renal failure) (Acute) Acute CVA (cerebrovascular accident) (Acute 10/27/17) 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) Atrial fibrillation (Acute) Sinus bradycardia (Acute) SOB (shortness of breath) (Acute) Atrioventricular block, type I (Acute) Premature ventricular contraction (Acute) Abnormal EKG (Acute) Bruit of left carotid artery (Acute) 1. IRINA baseline creatinine 0.99 in October increased to 4.2 on admission to 3.9 today. Last iv contrast exposure in October when seen in ER for stroke symptoms with subsequent transfer to [facility]. Records from [facility] hospitalization not av ailable. LVEF with preserved cardiac function but pt with recent episode of edema. He has mild leukopenia with anemia. Urine with protein and blood. [place] catheter placement to monitor urine output, check renal us. Check for inflammatory disorder. Etiology for renal failure unclear. 2. Profound anemia off Eliquis and ASA yesterday, stool + for occult blood. Mild petechial rash on hands and legs may be from trauma on anticoagulation but will evaluate for vasculitis 3. Hx GI bleed, min-en-y on PPI 4. CAD s/p CABG, AVR bioprosthetic valve 5. Leg edema with nonnephrotic proteinuria. UPCR 1.5g/gCr. 6. Hx recent stroke with facial droop, dysphagia. Swallow eval. 7. Cough CXR evaluate for aspiration pneumonia 8. Hx afib with pacemaker 9.Hyperlipidemia on statins
--- NOTE | 2017-12-15 12:45 | RAD_ITS ---
STUDY: X-RAY CHEST REASON FOR EXAM: Male, 62 years old. Shortness of breath. Bibasilar crackles. TECHNIQUE: PA and lateral views of the chest. COMPARISON: Comparison is made with prior examination dated October 26, 2017. FINDINGS: There is evidence of bibasilar infiltrates worse on the right side. There is no demonstrated pleural abnormality. Sternal cerclage wires and vascular clips are present from a prior sternotomy and coronary artery bypass graft procedure (CABG). A left-sided dual-chamber pacemaker is seen. Atrial appendage clip. Normal mediastinum and soren. Normal visualized pulmonary arteries. There is atherosclerotic tortuosity of the aortic arch and descending thoracic aorta. There are degenerative changes of the visualized thoracic spine. Normal visualized ribs, clavicles, and shoulders. Surgical clips are seen in the left upper quadrant. RAD/Chest PA and Lateral IMPRESSION: Bibasilar patchy infiltrates worse on the right side. Electronically Signed: Yosvany Carlos MD at 13:46 EDT Tel [phone], Service support ,
[2017-12-15 13:03] LABS: Protein, Urine (Random) 108.6 mg/dL (<11.9)
[2017-12-15 13:09] LABS: Urine Sodium 61 mmol/L (Not Establ.)
[2017-12-15] MEDS: Atorvastatin Calcium 80 MG Tablet PO (20:25)
[2017-12-16] VITALS (11 sets, daily range): BP systolic 113–138; BP diastolic 51–76; PULSE 62–90; RESP 16–18; TEMP 36.7–38.9; O2SAT 94–98
[2017-12-16] MEDS: Acetaminophen 500 MG Tablet PO (03:05)
[2017-12-16] MEDS: Ceftriaxone 1 GM/50 ML BAG IV (04:43)
[2017-12-16 05:20] LABS: Hematocrit 23.5 % (40-54); Hemoglobin 7.5 g/dl (13.0-16.5); Mean Corp Hgb Conc 31.9 g/gl (32-36); Mean Corpuscular Hgb 31.9 pg (27.0-32.0); Mean Platelet Vol. 9.4 fl (6.2-12.0); Platelet Count 99 K/mm3 (150-450); RBC Distribution Width CV 23.5 % (11.6-14.6); RBC Distribution Width SD 80.3 fl (35.1-43.9); Red Blood Count 2.35 M/mm3 (4.6-6.2); White Blood Count 4.2 K/mm3 (4.4-11.0)
[2017-12-16] MEDS: hydrALAZINE 25 MG Tablet PO ×3 (05:24→21:21)
[2017-12-16] MEDS: Levothyroxine 100 MCG Tablet 200 MCG PO (05:24)
[2017-12-16 05:25] LABS: International Normalized Ratio 1.4; Prothrombin Time (Protime)PT. 17.6 SECONDS (11.7-14.9)
[2017-12-16 05:32] LABS: BUN 70 mg/dL (7-18); BUN/Creat Ratio 17.8 RATIO (10-20); Calcium,Total 7.9 mg/dL (8.5-10.1); Chloride 116 mmol/L (98-107); Creatinine, Serum 3.93 mg/dL (0.70-1.30); EST Glomerular Filtration Rate 17 mL/min (>60); Est Glom Filt Rate - Afr Amer 20 mL/min (>60); Estimated Creatinine Clearance 24.23 ml/min; Glucose 98 mg/dL (74-106); LDH 309 U/L (87-241); Phosphorus 3.8 mg/dL (2.5-4.9); Potassium 5.4 mmol/L (3.5-5.1); Sodium Level 142 mmol/L (136-145)
[2017-12-16 05:43] LABS: Scan Indicated on CBC? Y/N YES- FLAGS NOTED
[2017-12-16 05:45] LABS: Differential Comment SCANNED
[2017-12-16] MEDS: Pantoprazole Sodium 40 MG Tablet PO ×2 (08:45→21:21)
[2017-12-16] MEDS: Multivitamins,Therapeutic Tablet 1 TABLET PO (08:45)
[2017-12-16] MEDS: Cyanocobalamin 500 MCG Tablet PO (08:45)
[2017-12-16] MEDS: Magnesium Oxide 400 MG Tablet PO (08:45)
[2017-12-16] MEDS: Metoprolol Tartrate 25 MG Tablet 12.5 MG PO ×2 (08:45→21:21)
[2017-12-16] MEDS: Ascorbic Acid 500 MG Tablet PO (08:45)
--- NOTE | 2017-12-16 09:16 | RAD_ITS ---
STUDY: X-RAY CHEST REASON FOR EXAM: Male, 62 years old. Shortness of breath. Anemia. TECHNIQUE: PA and lateral views of the chest. COMPARISON: Comparison is made with prior study dated December 15, 2017. FINDINGS: Residual bibasilar infiltrates slightly worse on the right side. This as improved as compared to prior study. Blunting of both costophrenic angles slightly worse on the right side. Sternal cerclage wires and vascular clips are present from a prior sternotomy and coronary artery bypass graft procedure (CABG). The patient is status post mitral valve replacement as well as atrial clipping. A left-sided dual-chamber pacemaker is seen. Normal mediastinum and soren. Normal visualized pulmonary arteries. There is atherosclerotic calcification of the aortic arch with tortuosity. There are diffuse degenerative changes of the visualized thoracic spine. Normal visualized ribs, clavicles, and shoulders. There is no demonstrated abnormality of the visualized soft tissue structures of the upper abdomen. RAD/Chest PA and Lateral IMPRESSION: Residual bibasilar infiltrates worse on the right side with the blunting of both costophrenic angles worse on the right side Electronically Signed: Yosvany Carlos MD at 11:10 EDT Tel [phone], Service support ,
[2017-12-16] MEDS: 0.9% NaCl Peripheral Flush Adult/Peds IV ×2 (10:00→13:27)
--- NOTE | 2017-12-16 10:47 | PCM.PN.REN ---
Patient Problems: Active and Suspected Problems (Last Reviewed 11/16/17 @ 08:36 by Suzanne Ferris) ARF (acute renal failure) (Acute) Subjective: cough improved. Fever with T 102 this morning. Tolerating diet. Denied diarrhea, nausea, vomiting. Still anemic with hgb 7.5g today. Renal fxn not much improved. Renal US essentially unremarkable. Had proteinuria without history of diabetes. - Physical Exam General: Alert, Oriented x3, Cooperative Oral: Dry Mucosa Neck: Supple, No JVD Lungs: Diminished Cardiovascular: Regular rate Abdomen: Bowel Sounds Present, Soft, Non Tender, Non-Distended Extremities: Edema - improving Skin: - - punctated lesions less violateous Musculoskeletal: No Muscle Wasting Neurological: Facial Droop - improved Psych/Mental Status: Normal Affect, Appropriate, Alert and oriented to time, place, person, mood and affect Vital Signs Temp Pulse Resp BP Pulse Ox 98.6 F 70 16 124/76 H 95 12/16/17 10:12 12/16/17 10:12 12/16/17 10:12 12/16/17 10:12 12/16/17 10:12 Oxygen Flow Rate (L/min) 2 Oxygen Delivery Method Room Air Weight: 106.594 kg Body Mass Index (BMI) 28.5 Finger Stick Blood Glucose 82 Intake and Output for Last 24 Hours 12/14/17 12/15/17 12/16/17 23:59 23:59 23:59 Intake Total 1140 / 1140 285 / 285 Output Total 1430 / 1430 200 / 200 Balance -290 / -290 85 / 85 Microbiology Past 72 Hours 12/14/17 23:05 Stool Occult Blood (PAWAN) - Final Stool Occult Blood Positive Laboratory Tests Past 24 Hrs 12/14/17 12/14/17 12/15/17 23:18 23:18 12:40 WBC RBC Hgb Hct MCV MCH MCHC RDW RDW Differential Plt Count MPV Differential Comment PT INR Sodium Potassium Chloride Carbon Dioxide BUN Creatinine Estim Creat Clear Calc Est GFR (MDRD) Af Amer Est GFR (MDRD) Non-Af BUN/Creatinine Ratio Glucose Calcium Phosphorus Lactate Dehydrogenase Total Protein (PEP) Albumin Albumin (PEP) Globulin (PEP) Albumin/Globulin (PEP) Pdqvj-2-Khzaiwycx Ykgeq-5-Mbbjfbjwu Beta Globulins Gamma Globulins M-Vivek U Random Total Protein 108.6 H Ur Random Sodium Urine Creatinine ANDREZ Screen c-ANCA Antibody p-ANCA Antibody PEDRO-1 Antibody SS-A/Ro IgG Antibody SS-B/La IgG Antibody Sm (Pickard) Antibody CAD DESIGNER DRAFTER Antibody Scl-70 Scleroderma Ab Double Strand DNA Ab Centromere B Antibody Crossmatch See Detail See Detail 12/15/17 12/15/17 12/16/17 12:40 12:40 05:00 WBC RBC Hgb Hct MCV MCH MCHC RDW RDW Differential Plt Count MPV Differential Comment PT INR Sodium 142 Potassium 5.4 H Chloride 116 H Carbon Dioxide 19.0 L BUN 70 H Creatinine 3.93 H Estim Creat Clear Calc 24.23 Est GFR (MDRD) Af Amer 20 L Est GFR (MDRD) Non-Af 17 L BUN/Creatinine Ratio 17.8 Glucose 98 Calcium 7.9 L Phosphorus 3.8 Lactate Dehydrogenase 309 H Total Protein (PEP) Albumin 2.0 L Albumin (PEP) Globulin (PEP) Albumin/Globulin (PEP) Bmhbz-5-Svshwpsug Qkrjj-1-Yygpegbwu Beta Globulins Gamma Globulins M-Vivek U Random Total Protein Ur Random Sodium 61 Urine Creatinine 71.50 ANDREZ Screen c-ANCA Antibody p-ANCA Antibody PEDRO-1 Antibody SS-A/Ro IgG Antibody SS-B/La IgG Antibody Sm (Pickard) Antibody CAD DESIGNER DRAFTER Antibody Scl-70 Scleroderma Ab Double Strand DNA Ab Centromere B Antibody Crossmatch 12/16/17 12/16/17 12/16/17 05:00 05:00 05:00 WBC 4.2 L RBC 2.35 L Hgb 7.5 L Hct 23.5 L MCV 100.0 H MCH 31.9 MCHC 31.9 L RDW 23.5 H RDW Differential 80.3 H Plt Count 99 L MPV 9.4 Differential Comment SCANNED PT 17.6 H INR 1.4 Sodium Potassium Chloride Carbon Dioxide BUN Creatinine Estim Creat Clear Calc Est GFR (MDRD) Af Amer Est GFR (MDRD) Non-Af BUN/Creatinine Ratio Glucose Calcium Phosphorus Lactate Dehydrogenase Total Protein (PEP) Pending Albumin Albumin (PEP) Pending Globulin (PEP) Pending Albumin/Globulin (PEP) Pending Aafcj-7-Ejiubdzzj Pending Pvroe-0-Yuqgcpvvu Pending Beta Globulins Pending Gamma Globulins Pending M-Vivek Pending U Random Total Protein Ur Random Sodium Urine Creatinine ANDREZ Screen c-ANCA Antibody Pending p-ANCA Antibody Pending PEDRO-1 Antibody SS-A/Ro IgG Antibody SS-B/La IgG Antibody Sm (Pickard) Antibody CAD DESIGNER DRAFTER Antibody Scl-70 Scleroderma Ab Double Strand DNA Ab Centromere B Antibody Crossmatch 12/16/17 05:00 WBC RBC Hgb Hct MCV MCH MCHC RDW RDW Differential Plt Count MPV Differential Comment PT INR Sodium Potassium Chloride Carbon Dioxide BUN Creatinine Estim Creat Clear Calc Est GFR (MDRD) Af Amer Est GFR (MDRD) Non-Af BUN/Creatinine Ratio Glucose Calcium Phosphorus Lactate Dehydrogenase Total Protein (PEP) Albumin Albumin (PEP) Globulin (PEP) Albumin/Globulin (PEP) Xwpsa-8-Kshokgyhb Gjgce-7-Bzjmtpwal Beta Globulins Gamma Globulins M-Vivek U Random Total Protein Ur Random Sodium Urine Creatinine ANDREZ Screen Pending c-ANCA Antibody p-ANCA Antibody PEDRO-1 Antibody Pending SS-A/Ro IgG Antibody Pending SS-B/La IgG Antibody Pending Sm (Pickard) Antibody Pending CAD DESIGNER [employer]RAFTER Antibody Pending Scl-70 Scleroderma Ab Pending Double Strand DNA Ab Pending Centromere B Antibody Pending Crossmatch Clinical Impression(s) from Imaging Studies Renal Ultrasound 12/15/17 09:28 IMPRESSION: 1. Normal ultrasound of the kidneys. 2. The urinary bladder is not visualized. 3. Incidental note of gallstones and mild pericholecystic fluid. The gallbladder is partially contracted, precluding accurate evaluation of mural thickness. Acute cholecystitis is not excluded by this study, however. 4. Fatty infiltration of the liver. Electronically Signed: Christ Vela MD at 16:09 EDT , Service support , Chest X-Ray 12/15/17 12:45 IMPRESSION: Bibasilar patchy infiltrates worse on the right side. Electronically Signed: Yosvany Carlos MD at 13:46 EDT Tel [phone], Service support , Medical Necessity - Tobacco Use Smoking Status: Current some day smoker Assessment/Plan All Active Problems (Last Reviewed 11/16/17 @ 08:36 by Suzanne Ferris) ARF (acute renal failure) (Acute) Acute CVA (cerebrovascular accident) (Acute 10/27/17) 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) Atrial fibrillation (Acute) Sinus bradycardia (Acute) SOB (shortness of breath) (Acute) Atrioventricular block, type I (Acute) Premature ventricular contraction (Acute) Abnormal EKG (Acute) Bruit of left carotid artery (Acute) 1. IRINA baseline creatinine 0.99 in October increased to 4.2 on admission to 3.9 today. Etiology unclear. + Proteinuria UPCR 1.5g/gCr. check serologies. Discussed with pt that if renal fxn does not improve, may consider kidney biopsy. 2. Profound anemia off Eliquis and ASA, stool + for occult blood. Mild petechial rash on hands and legs may be from trauma on anticoagulation but will evaluate for vasculitis 3. Hx GI bleed, min-en-y on PPI 4. CAD s/p CABG, AVR bioprosthetic valve 5. Leg edema with nonnephrotic proteinuria. UPCR 1.5g/gCr. 6. Hx recent stroke with facial droop, dysphagia. Swallow eval. 7. Cough CXR evaluate for aspiration pneumonia 8. Hx afib with pacemaker 9.Hyperlipidemia on statins 10. Fever, bld cx sent. Started on iv flagyl and rocephin by primary service
--- NOTE | 2017-12-16 10:53 | PN.RENAL_ITS ---
Patient Problems: Active and Suspected Problems (Last Reviewed 11/16/17 @ 08:36 by Suzanne Ferris) ARF (acute renal failure) (Acute) Subjective: cough improved. Fever with T 102 this morning. Tolerating diet. Denied diarrhea, nausea, vomiting. Still anemic with hgb 7.5g today. Renal fxn not much improved. Renal US essentially unremarkable. Had proteinuria without history of diabetes. - Physical Exam General: Alert, Oriented x3, Cooperative Oral: Dry Mucosa Neck: Supple, No JVD Lungs: Diminished Cardiovascular: Regular rate Abdomen: Bowel Sounds Present, Soft, Non Tender, Non-Distended Extremities: Edema - improving Skin: - - punctated lesions less violateous Musculoskeletal: No Muscle Wasting Neurological: Facial Droop - improved Psych/Mental Status: Normal Affect, Appropriate, Alert and oriented to time, place, person, mood and affect Vital Signs Temp Pulse Resp BP Pulse Ox 98.6 F 70 16 124/76 H 95 12/16/17 10:12 12/16/17 10:12 12/16/17 10:12 12/16/17 10:12 12/16/17 10:12 Oxygen Flow Rate (L/min) 2 Oxygen Delivery Method Room Air Weight: 106.594 kg Body Mass Index (BMI) 28.5 Finger Stick Blood Glucose 82 Intake and Output for Last 24 Hours 12/14/17 12/15/17 12/16/17 23:59 23:59 23:59 Intake Total 1140 / 1140 285 / 285 Output Total 1430 / 1430 200 / 200 Balance -290 / -290 85 / 85 Microbiology Past 72 Hours 12/14/17 23:05 Stool Occult Blood (PAWAN) - Final Stool Occult Blood Positive Laboratory Tests Past 24 Hrs 12/14/17 12/14/17 12/15/17 23:18 23:18 12:40 WBC RBC Hgb Hct MCV MCH MCHC RDW RDW Differential Plt Count MPV Differential Comment PT INR Sodium Potassium Chloride Carbon Dioxide BUN Creatinine Estim Creat Clear Calc Est GFR (MDRD) Af Amer Est GFR (MDRD) Non-Af BUN/Creatinine Ratio Glucose Calcium Phosphorus Lactate Dehydrogenase Total Protein (PEP) Albumin Albumin (PEP) Globulin (PEP) Albumin/Globulin (PEP) Wrvsk-5-Wjukngoew Rgzul-7-Gszotcbgj Beta Globulins Gamma Globulins M-Vivek U Random Total Protein 108.6 H Ur Random Sodium Urine Creatinine ANDREZ Screen c-ANCA Antibody p-ANCA Antibody PEDRO-1 Antibody SS-A/Ro IgG Antibody SS-B/La IgG Antibody Sm (Pickard) Antibody CREDIT VERIFICATION CLERK Antibody Scl-70 Scleroderma Ab Double Strand DNA Ab Centromere B Antibody Crossmatch See Detail See Detail 12/15/17 12/15/17 12/16/17 12:40 12:40 05:00 WBC RBC Hgb Hct MCV MCH MCHC RDW RDW Differential Plt Count MPV Differential Comment PT INR Sodium 142 Potassium 5.4 H Chloride 116 H Carbon Dioxide 19.0 L BUN 70 H Creatinine 3.93 H Estim Creat Clear Calc 24.23 Est GFR (MDRD) Af Amer 20 L Est GFR (MDRD) Non-Af 17 L BUN/Creatinine Ratio 17.8 Glucose 98 Calcium 7.9 L Phosphorus 3.8 Lactate Dehydrogenase 309 H Total Protein (PEP) Albumin 2.0 L Albumin (PEP) Globulin (PEP) Albumin/Globulin (PEP) Sklem-2-Bxcjqhhuu Tpfnk-3-Mhweqcejt Beta Globulins Gamma Globulins M-Vivek U Random Total Protein Ur Random Sodium 61 Urine Creatinine 71.50 ANDREZ Screen c-ANCA Antibody p-ANCA Antibody PEDRO-1 Antibody SS-A/Ro IgG Antibody SS-B/La IgG Antibody Sm (Pickard) Antibody CREDIT VERIFICATION CLERK Antibody Scl-70 Scleroderma Ab Double Strand DNA Ab Centromere B Antibody Crossmatch 12/16/17 12/16/17 12/16/17 05:00 05:00 05:00 WBC 4.2 L RBC 2.35 L Hgb 7.5 L Hct 23.5 L MCV 100.0 H MCH 31.9 MCHC 31.9 L RDW 23.5 H RDW Differential 80.3 H Plt Count 99 L MPV 9.4 Differential Comment SCANNED PT 17.6 H INR 1.4 Sodium Potassium Chloride Carbon Dioxide BUN Creatinine Estim Creat Clear Calc Est GFR (MDRD) Af Amer Est GFR (MDRD) Non-Af BUN/Creatinine Ratio Glucose Calcium Phosphorus Lactate Dehydrogenase Total Protein (PEP) Pending Albumin Albumin (PEP) Pending Globulin (PEP) Pending Albumin/Globulin (PEP) Pending Gnbni-9-Zwskvqaxx Pending Chxvm-0-Glbrmhxck Pending Beta Globulins Pending Gamma Globulins Pending M-Vivek Pending U Random Total Protein Ur Random Sodium Urine Creatinine ANDREZ Screen c-ANCA Antibody Pending p-ANCA Antibody Pending PEDRO-1 Antibody SS-A/Ro IgG Antibody SS-B/La IgG Antibody Sm (Pickard) Antibody CREDIT VERIFICATION CLERK Antibody Scl-70 Scleroderma Ab Double Strand DNA Ab Centromere B Antibody Crossmatch 12/16/17 05:00 WBC RBC Hgb Hct MCV MCH MCHC RDW RDW Differential Plt Count MPV Differential Comment PT INR Sodium Potassium Chloride Carbon Dioxide BUN Creatinine Estim Creat Clear Calc Est GFR (MDRD) Af Amer Est GFR (MDRD) Non-Af BUN/Creatinine Ratio Glucose Calcium Phosphorus Lactate Dehydrogenase Total Protein (PEP) Albumin Albumin (PEP) Globulin (PEP) Albumin/Globulin (PEP) Maqsi-7-Vzclmtmcm Nrqkb-4-Xzliqolqa Beta Globulins Gamma Globulins M-Vivek U Random Total Protein Ur Random Sodium Urine Creatinine ANDREZ Screen Pending c-ANCA Antibody p-ANCA Antibody PEDRO-1 Antibody Pending SS-A/Ro IgG Antibody Pending SS-B/La IgG Antibody Pending Sm (Pickard) Antibody Pending CREDIT VERIFICATION CLERK Antibody Pending Scl-70 Scleroderma Ab Pending Double Strand DNA Ab Pending Centromere B Antibody Pending Crossmatch Clinical Impression(s) from Imaging Studies Renal Ultrasound 12/15/17 09:28 IMPRESSION: 1. Normal ultrasound of the kidneys. 2. The urinary bladder is not visualized. 3. Incidental note of gallstones and mild pericholecystic fluid. The gallbladder is partially contracted, precluding accurate evaluation of mural thickness. Acute cholecystitis is not excluded by this study, however. 4. Fatty infiltration of the liver. Electronically Signed: Christ Vela MD at 16:09 EDT , Service support , Chest X-Ray 12/15/17 12:45 IMPRESSION: Bibasilar patchy infiltrates worse on the right side. Electronically Signed: Yosvany Carlos MD at 13:46 EDT Tel [phone], Service support , Medical Necessity - Tobacco Use Smoking Status: Current some day smoker Assessment/Plan All Active Problems (Last Reviewed 11/16/17 @ 08:36 by Suzanne Ferris) ARF (acute renal failure) (Acute) Acute CVA (cerebrovascular accident) (Acute 10/27/17) 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) Atrial fibrillation (Acute) Sinus bradycardia (Acute) SOB (shortness of breath) (Acute) Atrioventricular block, type I (Acute) Premature ventricular contraction (Acute) Abnormal EKG (Acute) Bruit of left carotid artery (Acute) 1. IRINA baseline creatinine 0.99 in October increased to 4.2 on admission to 3.9 today. Etiology unclear. + Proteinuria UPCR 1.5g/gCr. check serologies. Discussed with pt that if renal fxn does not improve, may consider kidney biopsy. 2. Profound anemia off Eliquis and ASA, stool + for occult blood. Mild petechial rash on hands and legs may be from trauma on anticoagulation but will evaluate for vasculitis 3. Hx GI bleed, min-en-y on PPI 4. CAD s/p CABG, AVR bioprosthetic valve 5. Leg edema with nonnephrotic proteinuria. UPCR 1.5g/gCr. 6. Hx recent stroke with facial droop, dysphagia. Swallow eval. 7. Cough CXR evaluate for aspiration pneumonia 8. Hx afib with pacemaker 9.Hyperlipidemia on statins 10. Fever, bld cx sent. Started on iv flagyl and rocephin by primary service
--- NOTE | 2017-12-16 13:11 | PCM.PROGNOTE ---
Patient Problems: Active and Suspected Problems (Last Reviewed 11/16/17 @ 08:36 by Suzanne Ferris) ARF (acute renal failure) (Acute) Subjective: + fever overnight, ongoing occsionally productive cough. Dysphagia since stroke in october. Not thickening liquids at home. Denies choking or coughing with PO intake. No current fever or chills. No abdominal pain. Pt states he has had EGD to correct GI bleeds in past but only when he has had significantly blood stools. They do EGD and cauterize the anastomosis sight his min en y surgery. - Physical Exam General: Alert, Oriented x3, Cooperative HEENT: Atraumatic, PERRLA, EOMI, Normocephalic Neck: Supple, No JVD, Negative Carotid Bruits Lungs: Clear to auscultation, Normal air movement Cardiovascular: Regular rate, No murmurs Abdomen: Bowel Sounds Present, Soft, Non Tender Extremities: No edema, Capillary Refill Less than 3 Seconds Skin: No rashes, No breakdown Musculoskeletal: No Tenderness to Palpation of Joints or Extremities Neurological: Cranial nerves II-XII grossly intact Psych/Mental Status: Normal Affect, Appropriate, Alert and oriented to time, place, person, mood and affect Vital Signs Temp Pulse Resp BP Pulse Ox 98.2 F 70 16 138/75 H 97 12/16/17 11:27 12/16/17 11:27 12/16/17 11:27 12/16/17 11:27 12/16/17 11:27 Oxygen Flow Rate (L/min) 2 Oxygen Delivery Method Room Air Weight: 234 lb 15.992 oz Body Mass Index (BMI) 28.5 Finger Stick Blood Glucose 82 Intake and Output for Last 24 Hours 12/14/17 12/15/17 12/16/17 23:59 23:59 23:59 Intake Total 1140 / 1140 285 / 285 Output Total 1430 / 1430 200 / 200 Balance -290 / -290 85 / 85 Microbiology Past 72 Hours 12/14/17 23:05 Stool Occult Blood (PAWAN) - Final Stool Occult Blood Positive Laboratory Tests Past 24 Hrs 12/14/17 12/14/17 12/16/17 23:18 23:18 05:00 WBC RBC Hgb Hct MCV MCH MCHC RDW RDW Differential Plt Count MPV Differential Comment PT INR Sodium 142 Potassium 5.4 H Chloride 116 H Carbon Dioxide 19.0 L BUN 70 H Creatinine 3.93 H Estim Creat Clear Calc 24.23 Est GFR (MDRD) Af Amer 20 L Est GFR (MDRD) Non-Af 17 L BUN/Creatinine Ratio 17.8 Glucose 98 Calcium 7.9 L Phosphorus 3.8 Lactate Dehydrogenase 309 H Total Protein (PEP) Albumin 2.0 L Albumin (PEP) Globulin (PEP) Albumin/Globulin (PEP) Bkbfr-5-Zvailiqvg Ftldo-4-Roydyuczg Beta Globulins Gamma Globulins M-Vivek ANDREZ Screen c-ANCA Antibody p-ANCA Antibody PEDRO-1 Antibody SS-A/Ro IgG Antibody SS-B/La IgG Antibody Sm (Pickard) Antibody CASTING ROOM HELPER Antibody Scl-70 Scleroderma Ab Double Strand DNA Ab Centromere B Antibody Crossmatch See Detail See Detail 12/16/17 12/16/17 12/16/17 05:00 05:00 05:00 WBC 4.2 L RBC 2.35 L Hgb 7.5 L Hct 23.5 L MCV 100.0 H MCH 31.9 MCHC 31.9 L RDW 23.5 H RDW Differential 80.3 H Plt Count 99 L MPV 9.4 Differential Comment SCANNED PT 17.6 H INR 1.4 Sodium Potassium Chloride Carbon Dioxide BUN Creatinine Estim Creat Clear Calc Est GFR (MDRD) Af Amer Est GFR (MDRD) Non-Af BUN/Creatinine Ratio Glucose Calcium Phosphorus Lactate Dehydrogenase Total Protein (PEP) Pending Albumin Albumin (PEP) Pending Globulin (PEP) Pending Albumin/Globulin (PEP) Pending Ptihd-6-Guvuthpuy Pending Murzp-3-Yazubbmua Pending Beta Globulins Pending Gamma Globulins Pending M-Vivek Pending ANDREZ Screen c-ANCA Antibody Pending p-ANCA Antibody Pending PEDRO-1 Antibody SS-A/Ro IgG Antibody SS-B/La IgG Antibody Sm (Pickard) Antibody CASTING ROOM HELPER Antibody Scl-70 Scleroderma Ab Double Strand DNA Ab Centromere B Antibody Crossmatch 12/16/17 05:00 WBC RBC Hgb Hct MCV MCH MCHC RDW RDW Differential Plt Count MPV Differential Comment PT INR Sodium Potassium Chloride Carbon Dioxide BUN Creatinine Estim Creat Clear Calc Est GFR (MDRD) Af Amer Est GFR (MDRD) Non-Af BUN/Creatinine Ratio Glucose Calcium Phosphorus Lactate Dehydrogenase Total Protein (PEP) Albumin Albumin (PEP) Globulin (PEP) Albumin/Globulin (PEP) Xfsyx-8-Bshlxquna Tsnjh-8-Pcqppolwe Beta Globulins Gamma Globulins M-Vivek ANDREZ Screen Pending c-ANCA Antibody p-ANCA Antibody PEDRO-1 Antibody Pending SS-A/Ro IgG Antibody Pending SS-B/La IgG Antibody Pending Sm (Pickard) Antibody Pending CASTING ROOM HELPER Antibody Pending Scl-70 Scleroderma Ab Pending Double Strand DNA Ab Pending Centromere B Antibody Pending Crossmatch Medical Necessity - Tobacco Use Smoking Status: Current some day smoker Assessment/Plan All Active Problems (Last Reviewed 11/16/17 @ 08:36 by Suzanne Ferris) ARF (acute renal failure) (Acute) Acute CVA (cerebrovascular accident) (Acute 10/27/17) 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) Atrial fibrillation (Acute) Sinus bradycardia (Acute) SOB (shortness of breath) (Acute) Atrioventricular block, type I (Acute) Premature ventricular contraction (Acute) Abnormal EKG (Acute) Bruit of left carotid artery (Acute) 1. Acute anemia 2/2 suspected GI bleed - hx upper bleeding. + hemoccult. No black or bloody stools. Transfuse x1 more unit today. Continue PPI BID. Macrocytosis - b12 (on b12) and folate no deficiency. LDH is elevated. 2. 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 IV venofer given. 3. IRINA - minimally improved. Renal following. 4. Dysphagia - If respiratory symptoms worsen will start therapy for aspiration pna. Defer for now. CXR shows R>L infiltrate. no further fever or leukocytosis - no SOB, lungs are clear. -Speech therapy is seeing patient and has modified the diet. 5. Hyperkalemia - albuterol given. 6. SSS - has PM. metoprolol 7. Hypothyroid - synthroid. DVT ppx: SCDs DC planning: Monitor Hgb overnight. This patient was seen by Seb Shahid PA-C under the supervision of Doctor Danielson.
--- NOTE | 2017-12-16 13:20 | PN_ITS ---
Patient Problems: Active and Suspected Problems (Last Reviewed 11/16/17 @ 08:36 by Suzanne Ferris) ARF (acute renal failure) (Acute) Subjective: + fever overnight, ongoing occsionally productive cough. Dysphagia since stroke in october. Not thickening liquids at home. Denies choking or coughing with PO intake. No current fever or chills. No abdominal pain. Pt states he has had EGD to correct GI bleeds in past but only when he has had significantly blood stools. They do EGD and cauterize the anastomosis sight his min en y surgery. - Physical Exam General: Alert, Oriented x3, Cooperative HEENT: Atraumatic, PERRLA, EOMI, Normocephalic Neck: Supple, No JVD, Negative Carotid Bruits Lungs: Clear to auscultation, Normal air movement Cardiovascular: Regular rate, No murmurs Abdomen: Bowel Sounds Present, Soft, Non Tender Extremities: No edema, Capillary Refill Less than 3 Seconds Skin: No rashes, No breakdown Musculoskeletal: No Tenderness to Palpation of Joints or Extremities Neurological: Cranial nerves II-XII grossly intact Psych/Mental Status: Normal Affect, Appropriate, Alert and oriented to time, place, person, mood and affect Vital Signs Temp Pulse Resp BP Pulse Ox 98.2 F 70 16 138/75 H 97 12/16/17 11:27 12/16/17 11:27 12/16/17 11:27 12/16/17 11:27 12/16/17 11:27 Oxygen Flow Rate (L/min) 2 Oxygen Delivery Method Room Air Weight: 234 lb 15.992 oz Body Mass Index (BMI) 28.5 Finger Stick Blood Glucose 82 Intake and Output for Last 24 Hours 12/14/17 12/15/17 12/16/17 23:59 23:59 23:59 Intake Total 1140 / 1140 285 / 285 Output Total 1430 / 1430 200 / 200 Balance -290 / -290 85 / 85 Microbiology Past 72 Hours 12/14/17 23:05 Stool Occult Blood (PAWAN) - Final Stool Occult Blood Positive Laboratory Tests Past 24 Hrs 12/14/17 12/14/17 12/16/17 23:18 23:18 05:00 WBC RBC Hgb Hct MCV MCH MCHC RDW RDW Differential Plt Count MPV Differential Comment PT INR Sodium 142 Potassium 5.4 H Chloride 116 H Carbon Dioxide 19.0 L BUN 70 H Creatinine 3.93 H Estim Creat Clear Calc 24.23 Est GFR (MDRD) Af Amer 20 L Est GFR (MDRD) Non-Af 17 L BUN/Creatinine Ratio 17.8 Glucose 98 Calcium 7.9 L Phosphorus 3.8 Lactate Dehydrogenase 309 H Total Protein (PEP) Albumin 2.0 L Albumin (PEP) Globulin (PEP) Albumin/Globulin (PEP) Ephmb-0-Uctiutwyy Pvfxs-4-Dnalbcivn Beta Globulins Gamma Globulins M-Vivek ANDREZ Screen c-ANCA Antibody p-ANCA Antibody PEDRO-1 Antibody SS-A/Ro IgG Antibody SS-B/La IgG Antibody Sm (Pickard) Antibody BUFFET ATTENDANT Antibody Scl-70 Scleroderma Ab Double Strand DNA Ab Centromere B Antibody Crossmatch See Detail See Detail 12/16/17 12/16/17 12/16/17 05:00 05:00 05:00 WBC 4.2 L RBC 2.35 L Hgb 7.5 L Hct 23.5 L MCV 100.0 H MCH 31.9 MCHC 31.9 L RDW 23.5 H RDW Differential 80.3 H Plt Count 99 L MPV 9.4 Differential Comment SCANNED PT 17.6 H INR 1.4 Sodium Potassium Chloride Carbon Dioxide BUN Creatinine Estim Creat Clear Calc Est GFR (MDRD) Af Amer Est GFR (MDRD) Non-Af BUN/Creatinine Ratio Glucose Calcium Phosphorus Lactate Dehydrogenase Total Protein (PEP) Pending Albumin Albumin (PEP) Pending Globulin (PEP) Pending Albumin/Globulin (PEP) Pending Pjqpy-6-Uwhngcfst Pending Gtzan-3-Almsfwwmm Pending Beta Globulins Pending Gamma Globulins Pending M-Vivek Pending ANDREZ Screen c-ANCA Antibody Pending p-ANCA Antibody Pending PEDRO-1 Antibody SS-A/Ro IgG Antibody SS-B/La IgG Antibody Sm (Pickard) Antibody BUFFET ATTENDANT Antibody Scl-70 Scleroderma Ab Double Strand DNA Ab Centromere B Antibody Crossmatch 12/16/17 05:00 WBC RBC Hgb Hct MCV MCH MCHC RDW RDW Differential Plt Count MPV Differential Comment PT INR Sodium Potassium Chloride Carbon Dioxide BUN Creatinine Estim Creat Clear Calc Est GFR (MDRD) Af Amer Est GFR (MDRD) Non-Af BUN/Creatinine Ratio Glucose Calcium Phosphorus Lactate Dehydrogenase Total Protein (PEP) Albumin Albumin (PEP) Globulin (PEP) Albumin/Globulin (PEP) Irrjn-7-Ovifzsmhy Ektcy-0-Vozukrlkw Beta Globulins Gamma Globulins M-Vivek ANDREZ Screen Pending c-ANCA Antibody p-ANCA Antibody PEDRO-1 Antibody Pending SS-A/Ro IgG Antibody Pending SS-B/La IgG Antibody Pending Sm (Pickard) Antibody Pending BUFFET ATTENDANT Antibody Pending Scl-70 Scleroderma Ab Pending Double Strand DNA Ab Pending Centromere B Antibody Pending Crossmatch Medical Necessity - Tobacco Use Smoking Status: Current some day smoker Assessment/Plan All Active Problems (Last Reviewed 11/16/17 @ 08:36 by Suzanne Ferris) ARF (acute renal failure) (Acute) Acute CVA (cerebrovascular accident) (Acute 10/27/17) 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) Atrial fibrillation (Acute) Sinus bradycardia (Acute) SOB (shortness of breath) (Acute) Atrioventricular block, type I (Acute) Premature ventricular contraction (Acute) Abnormal EKG (Acute) Bruit of left carotid artery (Acute) 1. Acute anemia 2/2 suspected GI bleed - hx upper bleeding. + hemoccult. No black or bloody stools. Transfuse x1 more unit today. Continue PPI BID. Macrocytosis - b12 (on b12) and folate no deficiency. LDH is elevated. 2. 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 IV venofer given. 3. IRINA - minimally improved. Renal following. 4. Dysphagia - If respiratory symptoms worsen will start therapy for aspiration pna. Defer for now. CXR shows R>L infiltrate. no further fever or leukocytosis - no SOB, lungs are clear. -Speech therapy is seeing patient and has modified the diet. 5. Hyperkalemia - albuterol given. 6. SSS - has PM. metoprolol 7. Hypothyroid - synthroid. DVT ppx: SCDs DC planning: Monitor Hgb overnight. This patient was seen by Seb Shahid PA-C under the supervision of Doctor Danielson.
--- NOTE | 2017-12-16 15:29 | CASEMGMT ---
RN CM assessment completed. DC Plan: Home No needs identified @ this time. Xochilt LOPEZN RN ACM
[2017-12-16 16:10] LABS: Hematocrit 26.8 % (40-54); Hemoglobin 8.4 g/dl (13.0-16.5)
[2017-12-16] MEDS: Atorvastatin Calcium 80 MG Tablet PO (21:21)
[2017-12-17] VITALS (13 sets, daily range): BP systolic 124–144; BP diastolic 65–78; PULSE 62–81; RESP 12–18; TEMP 36.7–37.4; O2SAT 95–97
[2017-12-17] MEDS: hydrALAZINE 25 MG Tablet PO ×3 (05:44→21:33)
[2017-12-17] MEDS: Levothyroxine 100 MCG Tablet 200 MCG PO (05:44)
[2017-12-17 05:55] LABS: BUN 65 mg/dL (7-18); BUN/Creat Ratio 16.4 RATIO (10-20); Calcium,Total 7.9 mg/dL (8.5-10.1); Chloride 116 mmol/L (98-107); Creatinine, Serum 3.96 mg/dL (0.70-1.30); EST Glomerular Filtration Rate 17 mL/min (>60); Est Glom Filt Rate - Afr Amer 20 mL/min (>60); Estimated Creatinine Clearance 24.05 ml/min; Glucose 85 mg/dL (74-106); Phosphorus 4.1 mg/dL (2.5-4.9); Potassium 5.2 mmol/L (3.5-5.1); Sodium Level 142 mmol/L (136-145)
[2017-12-17 05:58] LABS: Hematocrit 25.7 % (40-54); Mean Corp Hgb Conc 31.1 g/gl (32-36); Mean Corpuscular Hgb 30.5 pg (27.0-32.0); Mean Corpuscular Volume 98.1 fL (80-94); Mean Platelet Vol. 9.4 fl (6.2-12.0); Platelet Count 89 K/mm3 (150-450); RBC Distribution Width CV 22.9 % (11.6-14.6); RBC Distribution Width SD 81.6 fl (35.1-43.9); Red Blood Count 2.62 M/mm3 (4.6-6.2)
[2017-12-17 06:08] LABS: Scan Indicated on CBC? Y/N YES- FLAGS NOTED
[2017-12-17 06:50] LABS: Differential Comment SCANNED
--- NOTE | 2017-12-17 09:32 | PCM.PN.REN ---
Patient Problems: Active and Suspected Problems (Last Reviewed 11/16/17 @ 08:36 by Suzanne Ferris) ARF (acute renal failure) (Acute) Subjective: pt feeling a little better, hgb 8.0 today. Renal fxn not much improved. Serologies pending. Discussed kidney biopsy with pt. Risks of bleeding, possible loss of kidney, blood transfusions. PLT low at 89K, INR 1.4. Will need plt transfusion prior to biopsy per radiology request. - Physical Exam General: Alert, Oriented x3, Cooperative, No apparent distress Oral: Dry Mucosa Neck: Supple Lungs: Clear to auscultation Cardiovascular: Regular rate Abdomen: Bowel Sounds Present, Soft, Non Tender Extremities: Edema - ankle Musculoskeletal: - - gen weakness Psych/Mental Status: Normal Affect, Appropriate, Alert and oriented to time, place, person, mood and affect Vital Signs Temp Pulse Resp BP Pulse Ox 99.4 F H 77 15 137/72 H 95 12/17/17 03:21 12/17/17 05:44 12/17/17 03:21 12/17/17 05:44 12/17/17 03:21 Oxygen Flow Rate (L/min) 2 Oxygen Delivery Method Room Air Weight: 106.594 kg Body Mass Index (BMI) 28.5 Finger Stick Blood Glucose 82 Intake and Output for Last 24 Hours 12/15/17 12/16/17 12/17/17 23:59 23:59 23:59 Intake Total 1140 / 1140 1085 / 1085 270 / 270 Output Total 1430 / 1430 525 / 525 850 / 850 Balance -290 / -290 560 / 560 -580 / -580 Microbiology Past 72 Hours 12/15/17 12:40 Legionella Antigen - Final Urine Catheter - [place] 12/15/17 12:40 Streptococcus pneumoniae Antigen (M - Final Urine Catheter - [place] 12/16/17 10:00 Gram Stain - Final Sputum, Expectorated/Coughed 12/14/17 23:05 Stool Occult Blood (PAWAN) - Final Stool Occult Blood Positive Laboratory Tests Past 24 Hrs 12/14/17 12/14/17 12/16/17 23:18 23:18 15:54 WBC RBC Hgb 8.4 L Hct 26.8 L MCV MCH MCHC RDW RDW Differential Plt Count MPV Differential Comment Sodium Potassium Chloride Carbon Dioxide BUN Creatinine Estim Creat Clear Calc Est GFR (MDRD) Af Amer Est GFR (MDRD) Non-Af BUN/Creatinine Ratio Glucose Calcium Phosphorus Albumin Crossmatch See Detail See Detail 12/17/17 12/17/17 05:17 05:17 WBC 4.0 L RBC 2.62 L Hgb 8.0 L Hct 25.7 L MCV 98.1 H MCH 30.5 MCHC 31.1 L RDW 22.9 H RDW Differential 81.6 H Plt Count 89 L MPV 9.4 Differential Comment SCANNED Sodium 142 Potassium 5.2 H Chloride 116 H Carbon Dioxide 19.0 L BUN 65 H Creatinine 3.96 H Estim Creat Clear Calc 24.05 Est GFR (MDRD) Af Amer 20 L Est GFR (MDRD) Non-Af 17 L BUN/Creatinine Ratio 16.4 Glucose 85 Calcium 7.9 L Phosphorus 4.1 Albumin 2.0 L Crossmatch Medical Necessity - Tobacco Use Smoking Status: Current some day smoker Assessment/Plan All Active Problems (Last Reviewed 11/16/17 @ 08:36 by Suzanne Ferris) ARF (acute renal failure) (Acute) Acute CVA (cerebrovascular accident) (Acute 10/27/17) 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) Atrial fibrillation (Acute) Sinus bradycardia (Acute) SOB (shortness of breath) (Acute) Atrioventricular block, type I (Acute) Premature ventricular contraction (Acute) Abnormal EKG (Acute) Bruit of left carotid artery (Acute) 1. IRINA baseline creatinine 0.99 in October increased to 4.2 on admission to 3.9 today. Etiology unclear. + Proteinuria UPCR 1.5g/gCr. serologies pending. Discussed pursuing kidney biopsy. Risks and benefits discussed including bleeding, possible loss of kidney if bleeding persists. He agrees to proceed. 2. Profound anemia off Eliquis and ASA 12/14. 3. Hx GI bleed, min-en-y on PPI. Hgb 8.0 today prbc as needed 4. CAD s/p CABG, AVR bioprosthetic valve 5. Leg edema with nonnephrotic proteinuria. UPCR 1.5g/gCr. Check 24h urine protein. 6. Hx recent stroke with facial droop, dysphagia. Swallow eval. 7. Fever, bld cx pending 8. Thrombocytopenia PLT 89K LDH 308. Discussed with primary service, radiology
[2017-12-17 09:52] LABS: International Normalized Ratio 1.5; Prothrombin Time (Protime)PT. 17.8 SECONDS (11.7-14.9)
[2017-12-17] MEDS: Multivitamins,Therapeutic Tablet 1 TABLET PO (10:00)
[2017-12-17] MEDS: Magnesium Oxide 400 MG Tablet PO (10:00)
[2017-12-17] MEDS: Cyanocobalamin 500 MCG Tablet PO (10:01)
[2017-12-17] MEDS: Metoprolol Tartrate 25 MG Tablet 12.5 MG PO ×2 (10:01→21:32)
[2017-12-17] MEDS: Ascorbic Acid 500 MG Tablet PO (10:01)
[2017-12-17] MEDS: Pantoprazole Sodium 40 MG Tablet PO (10:01)
--- NOTE | 2017-12-17 10:47 | PN_ITS ---
Patient Problems: Active and Suspected Problems (Last Reviewed 11/16/17 @ 08:36 by Suzanne Ferris) ARF (acute renal failure) (Acute) Subjective: Patient seen exam. Denies fever, chills overnight. States he feels improved. Denies blood in stool. - Physical Exam General: Alert, Oriented x3, Cooperative, No apparent distress HEENT: Atraumatic, PERRLA, EOMI, Normocephalic Neck: Supple, No JVD, Negative Carotid Bruits Lungs: Clear to auscultation, Normal air movement Cardiovascular: Regular rate, No murmurs Abdomen: Bowel Sounds Present, Soft, Non Tender, Non-Distended Extremities: No clubbing, No cyanosis, No edema, Capillary Refill Less than 3 Seconds Skin: No rashes, No breakdown Musculoskeletal: No Tenderness to Palpation of Joints or Extremities Neurological: Cranial nerves II-XII grossly intact, Neuro grossly intact Psych/Mental Status: Normal Affect, Appropriate Vital Signs Temp Pulse Resp BP Pulse Ox 98.7 F 71 16 140/72 H 95 12/17/17 09:15 12/17/17 10:01 12/17/17 09:15 12/17/17 09:15 12/17/17 09:15 Oxygen Flow Rate (L/min) 2 Oxygen Delivery Method Room Air Weight: 234 lb 15.992 oz Body Mass Index (BMI) 28.5 Finger Stick Blood Glucose 82 Intake and Output for Last 24 Hours 12/15/17 12/16/17 12/17/17 23:59 23:59 23:59 Intake Total 1140 / 1140 1085 / 1085 270 / 270 Output Total 1430 / 1430 525 / 525 850 / 850 Balance -290 / -290 560 / 560 -580 / -580 Microbiology Past 72 Hours 12/15/17 12:40 Legionella Antigen - Final Urine Catheter - [place] 12/15/17 12:40 Streptococcus pneumoniae Antigen (M - Final Urine Catheter - [place] 12/16/17 10:00 Gram Stain - Final Sputum, Expectorated/Coughed 12/14/17 23:05 Stool Occult Blood (PAWAN) - Final Stool Occult Blood Positive Laboratory Tests Past 24 Hrs 12/14/17 12/14/17 12/16/17 23:18 23:18 15:54 WBC RBC Hgb 8.4 L Hct 26.8 L MCV MCH MCHC RDW RDW Differential Plt Count MPV Differential Comment PT INR Sodium Potassium Chloride Carbon Dioxide BUN Creatinine Estim Creat Clear Calc Est GFR (MDRD) Af Amer Est GFR (MDRD) Non-Af BUN/Creatinine Ratio Glucose Calcium Phosphorus Albumin Crossmatch See Detail See Detail 12/17/17 12/17/17 12/17/17 05:17 05:17 09:30 WBC 4.0 L RBC 2.62 L Hgb 8.0 L Hct 25.7 L MCV 98.1 H MCH 30.5 MCHC 31.1 L RDW 22.9 H RDW Differential 81.6 H Plt Count 89 L MPV 9.4 Differential Comment SCANNED PT 17.8 H INR 1.5 Sodium 142 Potassium 5.2 H Chloride 116 H Carbon Dioxide 19.0 L BUN 65 H Creatinine 3.96 H Estim Creat Clear Calc 24.05 Est GFR (MDRD) Af Amer 20 L Est GFR (MDRD) Non-Af 17 L BUN/Creatinine Ratio 16.4 Glucose 85 Calcium 7.9 L Phosphorus 4.1 Albumin 2.0 L Crossmatch Medical Necessity - Tobacco Use Smoking Status: Current some day smoker Assessment/Plan All Active Problems (Last Reviewed 11/16/17 @ 08:36 by Suzanne Ferris) ARF (acute renal failure) (Acute) Acute CVA (cerebrovascular accident) (Acute 10/27/17) 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) Atrial fibrillation (Acute) Sinus bradycardia (Acute) SOB (shortness of breath) (Acute) Atrioventricular block, type I (Acute) Premature ventricular contraction (Acute) Abnormal EKG (Acute) Bruit of left carotid artery (Acute) 1. Acute anemia on chronic iron deficiency anemia CAD-suspected upper GI bleed. History of upper GI bleed. Stool + OB. Status post 3 units PRBC. Continue PPI twice daily. Continue to hold anticoagulation. Possible EGD if no improvement. Trend CBC. 2. Acute kidney injury, unclear etiology-nephrology involved. Kidney biopsy martin nned for today. [place] in place. 24 hr urine pending. 3. Hyperkalemia-secondary to #2. Stable, continue to monitor. 4. History of CVA with residual dysphagia-ST evaluation. Patient denies cough, fever/chills. No leukocytosis. Pneumonia initially suspected on admission due to chest x-ray which showed bibasilar infiltrates, worse on the right side. Patient has had intermittent low-grade fever. Urine for strep and Legionella negative. Sputum culture negative. Culture pending. 5. Thrombocytopenia-trend CBC. 6. CAD s/p CABG-continue statin, metoprolol. Aspirin and Eliquis on hold. 7. Status post aortic valve replacement 8. Sick sinus syndrome status post pacemaker 9. Paroxysmal atrial fibrillation-continue metoprolol. Eliquis on hold secondary to #1. 10. Hypothyroidism-continue Synthroid. DVT prophylaxis-SCDs. This patient was seen by FAYE Mathew under the supervision of Dr. Danielson.
[2017-12-17] MEDS: 0.9% NaCl Peripheral Flush Adult/Peds IV ×2 (12:08→21:40)
--- NOTE | 2017-12-17 13:30 | RAD_ITS ---
STUDY: SWALLOWING STUDY REASON FOR EXAM: Male, 62 years old. Dysphagia. CVA. TECHNIQUE: The examination was performed with Speech Pathology in attendance. Under fluoroscopic observation, the patient ingested thin barium, thick barium, barium pudding, and barium coated cracker. FLUOROSCOPY TIME: 1:54 minutes/seconds. 1122 spot images were obtained. RADIOLOGIST INVOLVEMENT: Radiologist was present and providing direct supervision. COMPARISON: None. FINDINGS: The following was observed during swallowing of the various mixtures of barium: Thin Barium: Penetration and silent aspiration with thin liquids. This improves with the chin tuck maneuver. Thick Barium: There was no evidence of aspiration or laryngeal penetration. Barium Pudding: There was no evidence of aspiration or laryngeal penetration. Barium Coated Cracker: There was no evidence of aspiration or laryngeal penetration. RAD/Swallowing Function w/Video IMPRESSION: Penetration and silent aspiration with ingestion of thin liquids. This improves with the chin tuck maneuver. The swallow study findings were discussed with the patient by the speech pathologist at the conclusion of the examination. Please see speech pathology report for more information and recommendations. Electronically Signed: Yosvany Carlos MD at 14:19 EDT Tel [phone], Service support ,
--- NOTE | 2017-12-17 13:30 | SP.MBSS_ITS ---
PRIMARY / SECONDARY DIAGNOSIS:? Acute Renal Failure, anemia REFERRING PHYSICIAN: Tapan Danielson CURRENT DIET: Regular/[place] DENTITION: upper/lower dentures MENTAL STATUS: Alert and oriented RESPIRATORY STATUS: O2 via room air PREVIOUS MODIFIED BARIUM SWALLOW STUDY: N/A REASON FOR REFERRAL: Chest x-ray 12/15/2017 reports bibasilar patchy infiltrates worse on the right side. Received referral for bedside swallow evaluation d/t patient?s hx of recent CVA and report for coughing with thin liquid at times. MEDICAL HISTORY: stroke, nicotine abuse, premature atrial contractions, left ventricular hypertrophy, presence of permanent cardiac pacemaker, mitral valve insufficiency and aortic valve insufficiency, sick sinus syndrome, S/P aortic valve replacement, SOB, hyperlipidemia, ventricular hypertrophy, and acute renal failure. ? STUDY FINDINGS: Patient participated in a Modified Barium Swallow (MBS) study on 12/17/2017. Dr. Carlos was the radiologist present for this evaluation. This study was recorded in the lateral view and images were sent to PACs for storage. The following consistencies were presented to this patient for analysis of oropharyngeal swallow function: thin liquid, nectar liquid, pudding, and a regular textured, Ariana Doone cookie. Results of the MBS are as follows: PENETRATION / ASPIRATION SCALE (NG): 1 = does not enter airway 2 = enters airway/above vocal folds/ejected 3 = enters airway/above vocal folds/not ejected 4 = enters airway/contacts vocal folds/ejected 5 = enters airway/contacts vocal folds/not ejected 6 = enters airway/below vocal folds/ejected 7 = enters airway/below vocal folds/not ejected despite effort 8 = enters airway/below vocal folds/no effort ? PENETRATION / ASPIRATION SCALE (SCORE): 8 1 thin liquids via teaspoon: 1 2 thin liquids via cup: 5 3 thin liquids via cup: 8 4 thin liquids via cup: 8 5 nectar liquids via teaspoon: 1 6 nectar liquids via cup: 1 7 nectar liquids via cup: 1 8 nectar liquids via cup: 1 9 pudding via teaspoon: 1 10 cookie: 1 11 thin liquids via cup with chin tuck: 1 12 thin liquids via cup with chin tuck: 1 IMPRESSION: ORAL PHASE CHARACTERIZED BY: LABIAL SEAL: no labial escape TONGUE CONTROL DURING BOLUS MANIPULATION: cohesive bolus between tongue to palatal seal BOLUS PREPARATION / MASTICATION: timely and efficient chewing and mashing BOLUS TRANSPORT / LINGUAL MOTION: brisk tongue motion ORAL RESIDUE: trace residue lining oral structures PHARYNGEAL PHASE CHARACTERIZED BY: INITIATION OF PHARYNGEAL SWALLOW: bolus head at posterior laryngeal surface of epiglottis at first hyoid excursion SOFT PALATE ELEVATION: no bolus between soft palate and pharyngeal wall LARYNGEAL ELEVATION: partial superior movement of thyroid cartilage/partial approximation of arytenoids cartilage to epiglottic petiole ANTERIOR HYOID EXCURSION: complete anterior movement EPIGLOTTIC MOVEMENT: complete epiglottic inversion LARYNGEAL VESTIBULE CLOSURE AT HEIGHT OF SWALLOW: incomplete laryngeal vestibule closure with narrow column of air/contrast in laryngeal vestibule PHARYNGEAL STRIPPING WAVE: pharyngeal stripping wave present / complete PHARYNGOESOPHAGEAL SEGMENT OPENING: complete distension and complete duration with no obstruction of flow TONGUE BASE RETRACTION: trace column of contrast between tongue base and posterior pharyngeal wall PHARYNGEAL RESIDUE: collection of residue within or on pharyngeal structures (valleculae/pyriforms) ESOPHAGEAL PHASE CHARACTERIZED BY: ESOPHAGEAL BOLUS CLEARANCE IN THE UPRIGHT POSITION: esophageal retention with retrograde flow through PES (scant amount) EFFECTS OF TREATMENT STRATEGIES ATTEMPTED: ?Chin tuck posture trialed with thin liquids effective at protecting airway. Cough and reswallow ineffective at clearing pharyngeal residue. ? ? INTERPRETATION OF RESULTS: Patient presents with moderate oropharyngeal dysphagia (R13.12) secondary to CVA. During trials of thin liquids, nectar thick liquids, pudding, and Ariana Doone Cookie patient demonstrated adequate labial seal with no labial escape. Patient had adequate tongue control during manipulation Ariana Doone cookie with cohesive bolus between tongue and palatal seal. Pt had adequate mastication with timely and efficient chewing. Bolus transport efficient with timely tongue motion. Trace oral residue remained. No oral holding noted. Delayed initiation of pharyngeal swallow including bolus head to valleculae at first hyoid excursion and all the way to posterior laryngeal surface of epiglottis during trial of thin with cup. Patient with aspiration noted that was SILENT in nature with trials of thin liquids via cup and tsp. Adequate soft palate elevation with no bolus noted between soft palate and pharyngeal wall. Trialed chin tuck with thin liquids via cup which was effective at eliminating aspiration. No overt s/s of aspiration noted with nectar thick liquids via cup or teaspoon. Decreased laryngeal elevation apparent with minimal superior movement of thyroid cartilage/minimal approximation of arytenoids cartilage to epiglottic petiole. Hyoid excursion showed partial anterior movement. Patient presented with incomplete laryngeal vestibule closure with narrow column of air/contrast in laryngeal vestibule.? Adequate pharyngeal stripping wave. Trace column of contrast between tongue base and posterior pharyngeal wall. Mild-moderate collection of residue within the pharyngeal structures noted.? Esophageal retention with flash retrograde flow through PES noted with thin liquids/chin tuck.?Patient noted to SILENTLY aspirate with thin liquids, with clinical assessment at bedside relying on identification of classic overt signs and symptoms of aspiration unreliable. DIET TEXTURE RECOMMENDATIONS: Will recommend a regular textured, nectar thick liquid diet with consideration for thin liquid upgrade with use of chin tuck given thorough education and practice during skilled ST intervention.? ? ? COMPENSATORY STRATEGIES RECOMMENDED: Reduced bolus volume, reduced rate of intake, liquid chaser, avoid straws, seated upright at 90 degrees during PO intake, remain upright for 30-60 minutes post meal (GERD precaution), medications with liquid chaser, and trials of chin tuck with thin liquids. SKILLED DYSPHAGIA TREATMENT RECOMMENDED: Patient requires intensive skilled speech-language intervention targeting continued diet texture management, training and implementation of recommended compensatory strategies, training and implementation of recommended oropharyngeal strengthening exercises to facilitate improved swallow onset timing. ADDITIONAL COMMENTS/RECOMMENDATIONS: Results and recommendations were discussed with the Patient immediately following MBS completion, with the Patient verbalizing understanding and agreement with all recommendations and education provided. IMAGE COUNT: [id number]
[2017-12-17 14:11] LABS: 24HR. UA Prot. Total Volume 1900 mL; Urine Protein (24 Hour) 122.4 mg/dL (<11.9)
[2017-12-17 14:12] LABS: Creat.Clear Total Volume 1900 mL; Creatinine Clearance 27 ml/min (100-200); Creatinine Urine 80.9 mg/dL (NO RANGE EST.); EST Glomerular Filtration Rate 17 mL/min (>60); Est Glom Filt Rate - Afr Amer 20 mL/min (>60)
[2017-12-17 16:10] LABS: Cytoplasmic Ab (C-ANCA) <1:20 titer (Neg:<1:20); PROEL- A/G Ratio 0.5 (0.7-1.7); PROEL- Albumin 2.4 g/dL (2.9-4.4); PROEL- Alpha-1 Globulin 0.3 g/dL (0.0-0.4); PROEL- Alpha-2 Globulin 0.5 g/dL (0.4-1.0); PROEL- Beta Globulin 0.6 g/dL (0.7-1.3); PROEL- Globulin, Total 4.4 g/dL (2.2-3.9); PROEL- TOTAL PROTEIN 6.8 g/dL (6.0-8.5)
--- NOTE | 2017-12-17 18:11 | NURSING ---
reviewed and agree with charting by Rosalina Mehta, student nurse
[2017-12-17] MEDS: Atorvastatin Calcium 80 MG Tablet PO (21:33)
[2017-12-18] VITALS (27 sets, daily range): BP systolic 102–145; BP diastolic 63–86; PULSE 59–92; RESP 14–22; TEMP 36.4–37.3; O2SAT 91–98; BMI 28.5
[2017-12-18 06:25] LABS: International Normalized Ratio 1.4; Prothrombin Time (Protime)PT. 17.2 SECONDS (11.7-14.9)
[2017-12-18 06:26] LABS: Partial Thromboplast Time 47.9 Seconds (24.1-36.2)
[2017-12-18 06:38] LABS: BUN 64 mg/dL (7-18); BUN/Creat Ratio 16.5 RATIO (10-20); Calcium,Total 7.7 mg/dL (8.5-10.1); Chloride 117 mmol/L (98-107); Creatinine, Serum 3.87 mg/dL (0.70-1.30); EST Glomerular Filtration Rate 17 mL/min (>60); Est Glom Filt Rate - Afr Amer 20 mL/min (>60); Estimated Creatinine Clearance 24.61 ml/min; Glucose 85 mg/dL (74-106); Phosphorus 4.1 mg/dL (2.5-4.9); Potassium 5.3 mmol/L (3.5-5.1); Sodium Level 141 mmol/L (136-145); Thyroid Stim Hormone (TSH) 2.24 uIU/mL (0.358-3.74)
[2017-12-18 06:40] LABS: Hematocrit 25.5 % (40-54); Mean Corp Hgb Conc 31.4 g/gl (32-36); Mean Corpuscular Hgb 31.6 pg (27.0-32.0); Mean Corpuscular Volume 100.8 fL (80-94); Mean Platelet Vol. 9.6 fl (6.2-12.0); Platelet Count 96 K/mm3 (150-450); RBC Distribution Width CV 22.1 % (11.6-14.6); RBC Distribution Width SD 78.9 fl (35.1-43.9); Red Blood Count 2.53 M/mm3 (4.6-6.2); Scan Indicated on CBC? Y/N YES- FLAGS NOTED; White Blood Count 3.9 K/mm3 (4.4-11.0)
[2017-12-18 06:58] LABS: Differential Comment SCAN
[2017-12-18] MEDS: Metoprolol Tartrate 25 MG Tablet 12.5 MG PO ×2 (09:10→21:16)
--- NOTE | 2017-12-18 10:30 | CT_ITS ---
PROCEDURE: CT GUIDED PERCUTANEOUS KIDNEY BIOPSY. DATE: December 18, 2017. INDICATION: Male, 62 years old. Renal failure. PHYSICIAN: Yosvany Carlos M.D. MEDICATIONS: 2 mg of Versed and 50 mcg of fentanyl intravenously be conscious sedation was started 11:10 AM and terminated 11:26 AM. The patient was independently monitored by the department nurse. ACCESS SITE: Lower pole of the right kidney. NEEDLE: 18-gauge core biopsy needle. SPECIMEN: 4 18-gauge cores. EBL: None. COMPLICATIONS: None immediate. RADIATION DOSAGE (If Supplied By Facility): CTDIvol = ( 15.5 ) mGy, DLP = ( 728.39 ) mGycm. Individualized dose reduction techniques were utilized. The risks, benefits, and alternatives to the procedure and sedation were explained to the patient. The specific risk of hemorrhage requiring further treatment or intervention was detailed and accepted. Written informed consent was obtained. The patient was placed on the CT table in the prone position. Multiple axial images were obtained from the lung base through the caudal extent of the kidneys. An appropriate entry site was identified and a blanco made on the skin. The skin overlying the [right ] posterior flank was prepped and draped in sterile fashion. 1% lidocaine was administered subcutaneously for local anesthesia. Initially, a 22 gauge needle was advanced and CT images confirmed good needle position. The 22 gauge needle was then exchanged for an 17 gauge introducer needle which was advanced. Repeat CT images confirmed good needle trajectory and tip position. The introducer needle was then advanced into the periphery of the inferior renal pole, and CT images were again obtained to confirm exact tip location. The inner stylet of the introducer needle was then removed and an 18 gauge coaxial needle was advanced thru the introducer needle and biopsy performed. A total of [ 4] passes were performed and the specimen collected was sent to Pathology for further evaluation. The needle was withdrawn. Hemostasis was achieved with manual compression and a sterile dressing was applied. Repeat CT images of the biopsy area was performed which demonstrated no gross bleeding or hematoma. The patient tolerated the procedure well without immediate complications. The patient was transported to the [floor/recovery area] in stable condition. CT/Biopsy/Inj or Needle Placement IMPRESSION: Successful CT guided percutaneous kidney biopsy. Conscious sedation protocol was followed. Electronically Signed: Yosvany Carlos MD at 12:38 EDT Tel [phone], Service support ,
[2017-12-18 10:59] LABS: Perinuclear Ab (P-ANCA) <1:20 titer (Neg:<1:20)
--- NOTE | 2017-12-18 11:46 | PCM.PROGNOTE ---
Patient Problems: Active and Suspected Problems (Last Reviewed 11/16/17 @ 08:36 by Suzanne Ferris) ARF (acute renal failure) (Acute) Subjective: No acute events overnight. Patient denies current complaints. Scheduled for kidney biopsy and EGD today. - Physical Exam General: Alert, Oriented x3, Cooperative, No apparent distress HEENT: Atraumatic, PERRLA, EOMI, Normocephalic Neck: Supple, No JVD, Negative Carotid Bruits Lungs: Clear to auscultation, Normal air movement Cardiovascular: Regular rate, Regular Rhythm, Normal S1, Normal S2, No murmurs Abdomen: Bowel Sounds Present, Soft, Non Tender, Non-Distended Extremities: No clubbing, No cyanosis, Capillary Refill Less than 3 Seconds, Edema - +1 bilateral lower extremities Skin: No rashes, No breakdown Musculoskeletal: No Tenderness to Palpation of Joints or Extremities Neurological: Cranial nerves II-XII grossly intact, Neuro grossly intact Psych/Mental Status: Normal Affect, Appropriate Vital Signs Temp Pulse Resp BP Pulse Ox 98.5 F 64 16 133/71 H 92 12/18/17 10:19 12/18/17 11:36 12/18/17 11:36 12/18/17 11:36 12/18/17 11:36 Oxygen Flow Rate (L/min) [4] 2 Oxygen Flow Rate (L/min) [3] 2 Oxygen Flow Rate (L/min) [2] 2 Oxygen Flow Rate (L/min) [1 ( 2 Initial Baseline)] Oxygen Flow Rate (L/min) 2 Oxygen Delivery Method [4] Nasal Cannula Oxygen Delivery Method [3] Nasal Cannula Oxygen Delivery Method [2] Nasal Cannula Oxygen Delivery Method [1 ( Nasal Cannula Initial Baseline)] Oxygen Delivery Method Nasal Cannula Weight: 234 lb 15.992 oz Body Mass Index (BMI) 28.5 Finger Stick Blood Glucose 82 Intake and Output for Last 24 Hours 12/16/17 12/17/17 12/18/17 23:59 23:59 23:59 Intake Total 1085 / 1085 830 / 830 0 / 0 Output Total 525 / 525 1550 / 1550 425 / 425 Balance 560 / 560 -720 / -720 -425 / -425 Microbiology Past 72 Hours 12/16/17 10:00 Gram Stain - Final Sputum, Expectorated/Coughed Respiratory Culture - Preliminary 12/15/17 12:40 Legionella Antigen - Final Urine Catheter - [facility] 12/15/17 12:40 Streptococcus pneumoniae Antigen (M - Final Urine Catheter - [facility] Laboratory Tests Past 24 Hrs 12/16/17 12/16/17 12/17/17 05:00 13:30 13:30 WBC RBC Hgb Hct MCV MCH MCHC RDW RDW Differential Plt Count MPV Differential Comment PT INR APTT Sodium Potassium Chloride Carbon Dioxide BUN Creatinine Estim Creat Clear Calc Est GFR (MDRD) Af Amer Est GFR (MDRD) Non-Af BUN/Creatinine Ratio Glucose Calcium Phosphorus Total Protein (PEP) 6.8 Albumin Albumin (PEP) 2.4 L Globulin (PEP) 4.4 H Albumin/Globulin (PEP) 0.5 L Dkfih-3-Anlhrkyyr 0.3 Qtngm-6-Lvicehagw 0.5 Beta Globulins 0.6 L Gamma Globulins 3.0 H M-Vivek PEP Note Comment PEP Interpretation Comment TSH Urine Collection Time 24.0 Timed Urine Volume 1900 Urine Creatinine Creatinine Clearance Ur Total Protein 24 Hr 2325.6 H Urine Total Protein Pending 122.4 H Urine Albumin Pending U Yodfm-4-Ljtazzwu Pending U Fbpda-2-Tiooxtjo Pending U Beta Globulin Pending U Gamma Globulin Pending U PEP M-Vivek Pending c-ANCA Antibody <1:20 Atypical p-ANCA <1:20 p-ANCA Antibody <1:20 Blood Type 12/17/17 12/18/17 12/18/17 13:30 05:50 05:50 WBC 3.9 L RBC 2.53 L Hgb 8.0 L Hct 25.5 L MCV 100.8 H MCH 31.6 MCHC 31.4 L RDW 22.1 H RDW Differential 78.9 H Plt Count 96 L MPV 9.6 Differential Comment SCAN PT INR APTT Sodium 141 Potassium 5.3 H Chloride 117 H Carbon Dioxide 18.0 L BUN 64 H Creatinine 4.0 H 3.87 H Estim Creat Clear Calc 24.61 Est GFR (MDRD) Af Amer 20 L 20 L Est GFR (MDRD) Non-Af 17 L 17 L BUN/Creatinine Ratio 16.5 Glucose 85 Calcium 7.7 L Phosphorus 4.1 Total Protein (PEP) Albumin 2.0 L Albumin (PEP) Globulin (PEP) Albumin/Globulin (PEP) Rcyyq-7-Bhgbknsdj Kgchx-0-Yxwmhqasj Beta Globulins Gamma Globulins M-Vivek PEP Note PEP Interpretation TSH 2.24 Urine Collection Time 24.0 Timed Urine Volume 1900 Urine Creatinine 80.9 Creatinine Clearance 27 L Ur Total Protein 24 Hr Urine Total Protein Urine Albumin U Cbhom-3-Fknzgodx U Fjhjg-0-Gpbondff U Beta Globulin U Gamma Globulin U PEP M-Vivek c-ANCA Antibody Atypical p-ANCA p-ANCA Antibody Blood Type 12/18/17 12/18/17 12/18/17 05:50 07:15 07:25 WBC RBC Hgb Hct MCV MCH MCHC RDW RDW Differential Plt Count MPV Differential Comment PT 17.2 H INR 1.4 APTT 47.9 H Sodium Potassium Chloride Carbon Dioxide BUN Creatinine Estim Creat Clear Calc Est GFR (MDRD) Af Amer Est GFR (MDRD) Non-Af BUN/Creatinine Ratio Glucose Calcium Phosphorus Total Protein (PEP) Albumin Albumin (PEP) Globulin (PEP) Albumin/Globulin (PEP) Eevaq-2-Zbhfqguhk Hyhom-2-Rrfhhqzpa Beta Globulins Gamma Globulins M-Vivek PEP Note PEP Interpretation TSH Urine Collection Time Timed Urine Volume Urine Creatinine Creatinine Clearance Ur Total Protein 24 Hr Urine Total Protein Urine Albumin U Evijj-4-Fywbfxjn U Rfndi-1-Zfledcna U Beta Globulin U Gamma Globulin U PEP M-Vivek c-ANCA Antibody Atypical p-ANCA p-ANCA Antibody Blood Type Cancelled TNP 12/18/17 07:25 WBC RBC Hgb Hct MCV MCH MCHC RDW RDW Differential Plt Count MPV Differential Comment PT INR APTT Sodium Potassium Chloride Carbon Dioxide BUN Creatinine Estim Creat Clear Calc Est GFR (MDRD) Af Amer Est GFR (MDRD) Non-Af BUN/Creatinine Ratio Glucose Calcium Phosphorus Total Protein (PEP) Albumin Albumin (PEP) Globulin (PEP) Albumin/Globulin (PEP) Qycml-9-Vyhzodjjh Fmlyl-3-Pllfrajnq Beta Globulins Gamma Globulins M-Vivek PEP Note PEP Interpretation TSH Urine Collection Time Timed Urine Volume Urine Creatinine Creatinine Clearance Ur Total Protein 24 Hr Urine Total Protein Urine Albumin U Jndco-6-Sakbrvcs U Quhlb-7-Diejvacx U Beta Globulin U Gamma Globulin U PEP M-Vivek c-ANCA Antibody Atypical p-ANCA p-ANCA Antibody Blood Type A POSITIVE Medical Necessity - Tobacco Use Smoking Status: Current some day smoker Assessment/Plan All Active Problems (Last Reviewed 11/16/17 @ 08:36 by Suzanne Ferris) ARF (acute renal failure) (Acute) Acute CVA (cerebrovascular accident) (Acute 10/27/17) 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) Atrial fibrillation (Acute) Sinus bradycardia (Acute) SOB (shortness of breath) (Acute) Atrioventricular block, type I (Acute) Premature ventricular contraction (Acute) Abnormal EKG (Acute) Bruit of left carotid artery (Acute) 1. Acute anemia on chronic iron deficiency anemia CAD-suspected upper GI bleed. History of upper GI bleed. Stool + OB. Status post 3 units PRBC. Plt X2. Continue PPI twice daily. Continue to hold anticoagulation. Scheduled for EGD today with Dr. Sanabria. Trend CBC. 2. Acute kidney injury, unclear etiology-nephrology involved. Kidney biopsy planned for today. [facility] in place. 24 hr urine pending. 3. Hyperkalemia-secondary to #2. Stable, continue to monitor. 4. History of CVA with residual dysphagia-ST evaluation. Patient denies cough, fever/chills. No leukocytosis. Pneumonia initially suspected on admission due to chest x-ray which showed bibasilar infiltrates, worse on the right side. Patient has had intermittent low-grade fever. Urine for strep and Legionella negative. Sputum culture negative. Culture pending. PNA ruled out. 5. Thrombocytopenia-trend CBC. Plt given X2. 6. CAD s/p CABG-continue statin, metoprolol. Aspirin and Eliquis on hold. 7. Status post aortic valve replacement 8. Sick sinus syndrome status post pacemaker 9. Paroxysmal atrial fibrillation-continue metoprolol. Eliquis on hold secondary to #1. 10. Hypothyroidism-continue Synthroid. DVT prophylaxis-SCDs. This patient was seen by FAYE Mathew under the supervision of Dr. Danielson.
--- NOTE | 2017-12-18 11:50 | PN_ITS ---
Patient Problems: Active and Suspected Problems (Last Reviewed 11/16/17 @ 08:36 by Suzanne Ferris) ARF (acute renal failure) (Acute) Subjective: No acute events overnight. Patient denies current complaints. Scheduled for kidney biopsy and EGD today. - Physical Exam General: Alert, Oriented x3, Cooperative, No apparent distress HEENT: Atraumatic, PERRLA, EOMI, Normocephalic Neck: Supple, No JVD, Negative Carotid Bruits Lungs: Clear to auscultation, Normal air movement Cardiovascular: Regular rate, Regular Rhythm, Normal S1, Normal S2, No murmurs Abdomen: Bowel Sounds Present, Soft, Non Tender, Non-Distended Extremities: No clubbing, No cyanosis, Capillary Refill Less than 3 Seconds, Edema - +1 bilateral lower extremities Skin: No rashes, No breakdown Musculoskeletal: No Tenderness to Palpation of Joints or Extremities Neurological: Cranial nerves II-XII grossly intact, Neuro grossly intact Psych/Mental Status: Normal Affect, Appropriate Vital Signs Temp Pulse Resp BP Pulse Ox 98.5 F 64 16 133/71 H 92 12/18/17 10:19 12/18/17 11:36 12/18/17 11:36 12/18/17 11:36 12/18/17 11:36 Oxygen Flow Rate (L/min) [4] 2 Oxygen Flow Rate (L/min) [3] 2 Oxygen Flow Rate (L/min) [2] 2 Oxygen Flow Rate (L/min) [1 ( 2 Initial Baseline)] Oxygen Flow Rate (L/min) 2 Oxygen Delivery Method [4] Nasal Cannula Oxygen Delivery Method [3] Nasal Cannula Oxygen Delivery Method [2] Nasal Cannula Oxygen Delivery Method [1 ( Nasal Cannula Initial Baseline)] Oxygen Delivery Method Nasal Cannula Weight: 234 lb 15.992 oz Body Mass Index (BMI) 28.5 Finger Stick Blood Glucose 82 Intake and Output for Last 24 Hours 12/16/17 12/17/17 12/18/17 23:59 23:59 23:59 Intake Total 1085 / 1085 830 / 830 0 / 0 Output Total 525 / 525 1550 / 1550 425 / 425 Balance 560 / 560 -720 / -720 -425 / -425 Microbiology Past 72 Hours 12/16/17 10:00 Gram Stain - Final Sputum, Expectorated/Coughed Respiratory Culture - Preliminary 12/15/17 12:40 Legionella Antigen - Final Urine Catheter - [facility] 12/15/17 12:40 Streptococcus pneumoniae Antigen (M - Final Urine Catheter - [facility] Laboratory Tests Past 24 Hrs 12/16/17 12/16/17 12/17/17 05:00 13:30 13:30 WBC RBC Hgb Hct MCV MCH MCHC RDW RDW Differential Plt Count MPV Differential Comment PT INR APTT Sodium Potassium Chloride Carbon Dioxide BUN Creatinine Estim Creat Clear Calc Est GFR (MDRD) Af Amer Est GFR (MDRD) Non-Af BUN/Creatinine Ratio Glucose Calcium Phosphorus Total Protein (PEP) 6.8 Albumin Albumin (PEP) 2.4 L Globulin (PEP) 4.4 H Albumin/Globulin (PEP) 0.5 L Yrgzq-0-Uvpwdgkzf 0.3 Hnkcz-0-Lljlrwhaz 0.5 Beta Globulins 0.6 L Gamma Globulins 3.0 H M-Vivek PEP Note Comment PEP Interpretation Comment TSH Urine Collection Time 24.0 Timed Urine Volume 1900 Urine Creatinine Creatinine Clearance Ur Total Protein 24 Hr 2325.6 H Urine Total Protein Pending 122.4 H Urine Albumin Pending U Jpxfg-8-Dinsuplo Pending U Qgyck-5-Sjpcviwa Pending U Beta Globulin Pending U Gamma Globulin Pending U PEP M-Vivek Pending c-ANCA Antibody <1:20 Atypical p-ANCA <1:20 p-ANCA Antibody <1:20 Blood Type 12/17/17 12/18/17 12/18/17 13:30 05:50 05:50 WBC 3.9 L RBC 2.53 L Hgb 8.0 L Hct 25.5 L MCV 100.8 H MCH 31.6 MCHC 31.4 L RDW 22.1 H RDW Differential 78.9 H Plt Count 96 L MPV 9.6 Differential Comment SCAN PT INR APTT Sodium 141 Potassium 5.3 H Chloride 117 H Carbon Dioxide 18.0 L BUN 64 H Creatinine 4.0 H 3.87 H Estim Creat Clear Calc 24.61 Est GFR (MDRD) Af Amer 20 L 20 L Est GFR (MDRD) Non-Af 17 L 17 L BUN/Creatinine Ratio 16.5 Glucose 85 Calcium 7.7 L Phosphorus 4.1 Total Protein (PEP) Albumin 2.0 L Albumin (PEP) Globulin (PEP) Albumin/Globulin (PEP) Mnqyz-6-Glarzppyj Gsotx-0-Xnreusrcl Beta Globulins Gamma Globulins M-Vivek PEP Note PEP Interpretation TSH 2.24 Urine Collection Time 24.0 Timed Urine Volume 1900 Urine Creatinine 80.9 Creatinine Clearance 27 L Ur Total Protein 24 Hr Urine Total Protein Urine Albumin U Bvczj-9-Gwvdmppx U Abxly-5-Pcsxgofs U Beta Globulin U Gamma Globulin U PEP M-Vivek c-ANCA Antibody Atypical p-ANCA p-ANCA Antibody Blood Type 12/18/17 12/18/17 12/18/17 05:50 07:15 07:25 WBC RBC Hgb Hct MCV MCH MCHC RDW RDW Differential Plt Count MPV Differential Comment PT 17.2 H INR 1.4 APTT 47.9 H Sodium Potassium Chloride Carbon Dioxide BUN Creatinine Estim Creat Clear Calc Est GFR (MDRD) Af Amer Est GFR (MDRD) Non-Af BUN/Creatinine Ratio Glucose Calcium Phosphorus Total Protein (PEP) Albumin Albumin (PEP) Globulin (PEP) Albumin/Globulin (PEP) Btmzr-1-Vpcdsjdxe Azcyn-1-Ugfhpxmal Beta Globulins Gamma Globulins M-Vivek PEP Note PEP Interpretation TSH Urine Collection Time Timed Urine Volume Urine Creatinine Creatinine Clearance Ur Total Protein 24 Hr Urine Total Protein Urine Albumin U Jvacz-3-Djdctpjt U Xnaxq-3-Ozrifqyd U Beta Globulin U Gamma Globulin U PEP M-Vivek c-ANCA Antibody Atypical p-ANCA p-ANCA Antibody Blood Type Cancelled TNP 12/18/17 07:25 WBC RBC Hgb Hct MCV MCH MCHC RDW RDW Differential Plt Count MPV Differential Comment PT INR APTT Sodium Potassium Chloride Carbon Dioxide BUN Creatinine Estim Creat Clear Calc Est GFR (MDRD) Af Amer Est GFR (MDRD) Non-Af BUN/Creatinine Ratio Glucose Calcium Phosphorus Total Protein (PEP) Albumin Albumin (PEP) Globulin (PEP) Albumin/Globulin (PEP) Dponn-0-Znedrucsq Dusjl-3-Asdeupulz Beta Globulins Gamma Globulins M-Vivek PEP Note PEP Interpretation TSH Urine Collection Time Timed Urine Volume Urine Creatinine Creatinine Clearance Ur Total Protein 24 Hr Urine Total Protein Urine Albumin U Ehxpw-2-Fhtjwlkv U Sdkrr-5-Znzxcoie U Beta Globulin U Gamma Globulin U PEP M-Vivek c-ANCA Antibody Atypical p-ANCA p-ANCA Antibody Blood Type A POSITIVE Medical Necessity - Tobacco Use Smoking Status: Current some day smoker Assessment/Plan All Active Problems (Last Reviewed 11/16/17 @ 08:36 by Suzanne Ferris) ARF (acute renal failure) (Acute) Acute CVA (cerebrovascular accident) (Acute 10/27/17) 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) Atrial fibrillation (Acute) Sinus bradycardia (Acute) SOB (shortness of breath) (Acute) Atrioventricular block, type I (Acute) Premature ventricular contraction (Acute) Abnormal EKG (Acute) Bruit of left carotid artery (Acute) 1. Acute anemia on chronic iron deficiency anemia CAD-suspected upper GI bleed. History of upper GI bleed. Stool + OB. Status post 3 units PRBC. Plt X2. Continue PPI twice daily. Continue to hold anticoagulation. Scheduled for EGD today with Dr. Sanabria. Trend CBC. 2. Acute kidney injury, unclear etiology-nephrology involved. Kidney biopsy planned for today. [facility] in place. 24 hr urine pending. 3. Hyperkalemia-secondary to #2. Stable, continue to monitor. 4. History of CVA with residual dysphagia-ST evaluation. Patient denies cough, fever/chills. No leukocytosis. Pneumonia initially suspected on admission due to chest x-ray which showed bibasilar infiltrates, worse on the right side. Patient has had intermittent low-grade fever. Urine for strep and Legionella negative. Sputum culture negative. Culture pending. PNA ruled out. 5. Thrombocytopenia-trend CBC. Plt given X2. 6. CAD s/p CABG-continue statin, metoprolol. Aspirin and Eliquis on hold. 7. Status post aortic valve replacement 8. Sick sinus syndrome status post pacemaker 9. Paroxysmal atrial fibrillation-continue metoprolol. Eliquis on hold secondary to #1. 10. Hypothyroidism-continue Synthroid. DVT prophylaxis-SCDs. This patient was seen by FAYE Mathew under the supervision of Dr. Danielson.
--- NOTE | 2017-12-18 12:50 | PCM.OPRPT ---
Report of Operation Date of Procedure: 12/18/17 Pre-Operative Diagnosis: anemia, rule out GI bleed Post-Operative Diagnosis: normal upper endoscopy Surgery/Procedure Performed:: esophagogastroduodenoscopy Description of Surgical Findings:: normal esophagus, small stomach pouch - normal after bariatric surgery, anastomosis intact - no ulcers lesions seen, no stigmata of bleeding Type of Anesthesia:: MAC Anesthesiologist: Keith Valdes Specimen's removed: none Estimated Blood Loss (mL): none Fluids Replaced: see anesthesia note Description of Procedure: After informed consent was given, the patient was brought to the endoscopy suite. Appropriate time out protocol was followed. Appropriate cardiac, blood pressure, and pulse oximetry monitoring was placed. After stable vital signs were noted, the patient was given intravenous conscious sedation. The patient was then placed in the left lateral decubitis position. The upper endoscope was lubricated and inserted into the patient?s mouth and then carefully placed into the patient?s throat. The patient was asked to swallow and the endoscope was then easily advanced into the patient?s esophagus. The endoscope was further advanced down into the patient?s stomach which was a small pouch consistent with s/p bariatric surgery. The small bowel anastomosis was noted - it was intact, and there was no evidence of any ulcers. No stigmata of bleeding was noted. There was no blood seen. The endoscope was advanced about 15 cm into the small bowel limb - no lesions were noted. The stomach pouch was carefully examined, no evidence of bleeding was noted, no ulcers/masses were noted. The endoscope was retracted back into the esophagus, where any insufflated gas in the stomach was aspirated out for fear of reflux/aspiration. The gastroesophageal junction appeared grossly normal, the remainder of the esophagus was normal. The upper endoscope was removed intact. Patient tolerated procedure well. - Complications none noted
[2017-12-18 13:02] LABS: ANTINUCLEAR ANTIBODIES DIRECT Negative (Negative)
--- NOTE | 2017-12-18 13:15 | OP.ENDO_ITS ---
Patient Name: Frank White Procedure Date: 12/18/2017 12:07 PM Date of : 1955 Age: 62 Procedure: Upper GI endoscopy Indications: Iron deficiency anemia Providers: Sandie Sanabria MD Medicines: See the Anesthesia note for documentation of the administered medications Patient Profile: Refer to note in patient chart for documentation of history and physical. Complications: No immediate complications. Procedure: Pre-Anesthesia Assessment: - Prior to the procedure, a History and Physical was performed, and patient medications and allergies were reviewed. The patient's tolerance of previous anesthesia was also reviewed. The risks and benefits of the procedure and the sedation options and risks were discussed with the patient. All questions were answered, and informed consent was obtained. Prior Anticoagulants: The patient has taken no previous 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 or antiplatelet agents. ASA Grade Assessment: III - A patient with severe systemic disease. After reviewing the risks and benefits, the patient was deemed in satisfactory condition to undergo the procedure. After obtaining informed consent, the endoscope was passed under direct vision. Throughout the procedure, the patient's blood pressure, pulse, and oxygen saturations were monitored continuously. The gastroscope was introduced through the mouth, and advanced to the elmer en y limb. The upper GI endoscopy was accomplished without difficulty. The patient tolerated the procedure well. Scope In: 12:32:37 PM Scope Out: 12:38:08 PM Total Procedure Duration Time 0 hours 5 minutes 31 seconds Findings: The examined esophagus was normal. The entire examined stomach was normal. The examined jejunum was normal. Impression: - Normal esophagus. - Normal stomach- pouch - Normal examined jejunum -segment of Elmer en Y limb. - No specimens collected. Recommendation: - The findings and recommendations were discussed with the referring physician. - Continue 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 after clearance with colonoscopy tomorrow at prior dose. Procedure Code(s): --- Professional --- 38664, Esophagogastroduodenoscopy, flexible, transoral; diagnostic, including collection of specimen(s) by brushing or washing, when performed (separate procedure) Diagnosis Code(s): --- Professional --- D50.9, Iron deficiency anemia, unspecified CPT copyright 2017 [employer]. All rights reserved. The codes documented in this report are preliminary and upon hcc coders review may be revised to meet current compliance requirements. MD Sandie Chacon MD 12/18/2017 1:14:36 PM This report has been signed electronically. Number of Addenda: 0 Note Initiated On: 12/18/2017 12:07 PM
[2017-12-18] MEDS: hydrALAZINE 25 MG Tablet PO ×2 (13:30→21:15)
[2017-12-18] MEDS: Ascorbic Acid 500 MG Tablet PO (13:30)
[2017-12-18] MEDS: Cyanocobalamin 500 MCG Tablet PO (13:30)
[2017-12-18] MEDS: Magnesium Oxide 400 MG Tablet PO (13:30)
[2017-12-18] MEDS: Multivitamins,Therapeutic Tablet 1 TABLET PO (13:30)
--- NOTE | 2017-12-18 14:27 | PCM.PN.REN ---
Patient Problems: Active and Suspected Problems (Last Reviewed 11/16/17 @ 08:36 by Suzanne Ferris) GI bleed (Acute) ARF (acute renal failure) (Acute) Subjective: seen post renal bx and EGD. No gross hematuria. Pt on aspiration precaution. Poor oral intake. Will gently hydrate. Dark lyudmila urine. Spoke with family. Await serologies. - Physical Exam General: Alert, Oriented x3, Cooperative Neck: Supple Lungs: Clear to auscultation Abdomen: Bowel Sounds Present, Soft, Non Tender Extremities: Edema - trace Vital Signs Temp Pulse Resp BP Pulse Ox 97.9 F 61 16 126/74 H 93 12/18/17 13:23 12/18/17 13:30 12/18/17 13:23 12/18/17 13:23 12/18/17 13:23 Oxygen Flow Rate (L/min) [4] 2 Oxygen Flow Rate (L/min) [3] 2 Oxygen Flow Rate (L/min) [2] 2 Oxygen Flow Rate (L/min) [1 ( 2 Initial Baseline)] Oxygen Flow Rate (L/min) 2 Oxygen Delivery Method [4] Nasal Cannula Oxygen Delivery Method [3] Nasal Cannula Oxygen Delivery Method [2] Nasal Cannula Oxygen Delivery Method [1 ( Nasal Cannula Initial Baseline)] Oxygen Delivery Method Room Air Weight: 106.594 kg Body Mass Index (BMI) 28.5 Finger Stick Blood Glucose 82 Intake and Output for Last 24 Hours 12/16/17 12/17/17 12/18/17 23:59 23:59 23:59 Intake Total 1085 / 1085 830 / 830 300 / 300 Output Total 525 / 525 1550 / 1550 625 / 625 Balance 560 / 560 -720 / -720 -325 / -325 Microbiology Past 72 Hours 12/16/17 05:00 Blood Culture - Preliminary Blood Culture (Wb) - Right Hand No growth in 48 hours. 12/16/17 05:00 Blood Culture - Preliminary Blood Culture (Wb) - Anticubital Left No growth in 48 hours. 12/16/17 10:00 Gram Stain - Final Sputum, Expectorated/Coughed Respiratory Culture - Preliminary Streptococcus group C 12/15/17 12:40 Legionella Antigen - Final Urine Catheter - [place] 12/15/17 12:40 Streptococcus pneumoniae Antigen (M - Final Urine Catheter - [place] Laboratory Tests Past 24 Hrs 12/16/17 12/16/17 12/18/17 05:00 05:00 05:50 WBC RBC Hgb Hct MCV MCH MCHC RDW RDW Differential Plt Count MPV Differential Comment PT INR APTT Sodium 141 Potassium 5.3 H Chloride 117 H Carbon Dioxide 18.0 L BUN 64 H Creatinine 3.87 H Estim Creat Clear Calc 24.61 Est GFR (MDRD) Af Amer 20 L Est GFR (MDRD) Non-Af 17 L BUN/Creatinine Ratio 16.5 Glucose 85 Calcium 7.7 L Phosphorus 4.1 Total Protein (PEP) 6.8 Albumin 2.0 L Albumin (PEP) 2.4 L Globulin (PEP) 4.4 H Albumin/Globulin (PEP) 0.5 L Lbtrz-3-Tupznzktk 0.3 Pbknd-9-Uvsqxdyvq 0.5 Beta Globulins 0.6 L Gamma Globulins 3.0 H M-Vivek PEP Note Comment PEP Interpretation Comment TSH 2.24 ANDREZ Screen Negative c-ANCA Antibody <1:20 Atypical p-ANCA <1:20 p-ANCA Antibody <1:20 Blood Type 12/18/17 12/18/17 12/18/17 05:50 05:50 07:15 WBC 3.9 L RBC 2.53 L Hgb 8.0 L Hct 25.5 L MCV 100.8 H MCH 31.6 MCHC 31.4 L RDW 22.1 H RDW Differential 78.9 H Plt Count 96 L MPV 9.6 Differential Comment SCAN PT 17.2 H INR 1.4 APTT 47.9 H Sodium Potassium Chloride Carbon Dioxide BUN Creatinine Estim Creat Clear Calc Est GFR (MDRD) Af Amer Est GFR (MDRD) Non-Af BUN/Creatinine Ratio Glucose Calcium Phosphorus Total Protein (PEP) Albumin Albumin (PEP) Globulin (PEP) Albumin/Globulin (PEP) Yxocc-5-Zvldqhonm Oipys-2-Ipcwffeql Beta Globulins Gamma Globulins M-Vivek PEP Note PEP Interpretation TSH ANDREZ Screen c-ANCA Antibody Atypical p-ANCA p-ANCA Antibody Blood Type Cancelled 12/18/17 12/18/17 07:25 07:25 WBC RBC Hgb Hct MCV MCH MCHC RDW RDW Differential Plt Count MPV Differential Comment PT INR APTT Sodium Potassium Chloride Carbon Dioxide BUN Creatinine Estim Creat Clear Calc Est GFR (MDRD) Af Amer Est GFR (MDRD) Non-Af BUN/Creatinine Ratio Glucose Calcium Phosphorus Total Protein (PEP) Albumin Albumin (PEP) Globulin (PEP) Albumin/Globulin (PEP) Bpaio-3-Zblmorqnc Ndhou-8-Afmdleudj Beta Globulins Gamma Globulins M-Vivek PEP Note PEP Interpretation TSH ANDREZ Screen c-ANCA Antibody Atypical p-ANCA p-ANCA Antibody Blood Type TNP A POSITIVE Medical Necessity - Tobacco Use Smoking Status: Current some day smoker Assessment/Plan All Active Problems (Last Reviewed 11/16/17 @ 08:36 by Suzanne Ferris) GI bleed (Acute) ARF (acute renal failure) (Acute) Acute CVA (cerebrovascular accident) (Acute 10/27/17) 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) Atrial fibrillation (Acute) Sinus bradycardia (Acute) SOB (shortness of breath) (Acute) Atrioventricular block, type I (Acute) Premature ventricular contraction (Acute) Abnormal EKG (Acute) Bruit of left carotid artery (Acute) 1. IRINA baseline creatinine 0.99 in October increased to 4.2 on admission to 3.8 today. Etiology unclear. + Proteinuria 2.3g, CrCl 27cc/min on 24h urine. Await serologies and renal biopsy results. 2. Profound anemia off Eliquis and ASA, stool + for occult blood. 3. Hx GI bleed, min-en-y on PPI. EGD today 4. CAD s/p CABG, AVR bioprosthetic valve 5. Leg edema with nonnephrotic proteinuria. 6. Hx recent stroke with facial droop, dysphagia. failed Swallow eval. 7. Cough CXR evaluate for aspiration pneumonia
[2017-12-18] MEDS: Atorvastatin Calcium 80 MG Tablet PO (21:15)
[2017-12-19] VITALS (9 sets, daily range): BP systolic 121–136; BP diastolic 64–78; PULSE 60–68; RESP 16–18; TEMP 36.6–37.1; O2SAT 94–98
[2017-12-19] MEDS: 0.9% NaCl Peripheral Flush Adult/Peds IV (01:00)
[2017-12-19] MEDS: Levothyroxine 100 MCG Tablet 200 MCG PO (06:17)
[2017-12-19] MEDS: hydrALAZINE 25 MG Tablet PO ×3 (06:17→21:17)
[2017-12-19 07:32] LABS: Hematocrit 27.4 % (40-54); Hemoglobin 8.7 g/dl (13.0-16.5); Mean Corp Hgb Conc 31.8 g/gl (32-36); Mean Corpuscular Hgb 31.3 pg (27.0-32.0); Mean Corpuscular Volume 98.6 fL (80-94); Mean Platelet Vol. 10.2 fl (6.2-12.0); Platelet Count 94 K/mm3 (150-450); RBC Distribution Width CV 21.8 % (11.6-14.6); Red Blood Count 2.78 M/mm3 (4.6-6.2); Scan Indicated on CBC? Y/N YES- FLAGS NOTED; White Blood Count 3.7 K/mm3 (4.4-11.0)
[2017-12-19 07:45] LABS: Anion Gap 5 (5-15); BUN 64 mg/dL (7-18); BUN/Creat Ratio 17.1 RATIO (10-20); Calcium,Total 7.7 mg/dL (8.5-10.1); Chloride 118 mmol/L (98-107); Creatinine, Serum 3.75 mg/dL (0.70-1.30); EST Glomerular Filtration Rate 18 mL/min (>60); Est Glom Filt Rate - Afr Amer 21 mL/min (>60); Glucose 82 mg/dL (74-106); Potassium 5.3 mmol/L (3.5-5.1); Sodium Level 142 mmol/L (136-145)
[2017-12-19 08:15] LABS: Bilirubin, Direct 0.41 mg/dL (0.00-0.30); LDH 355 U/L (87-241)
[2017-12-19] MEDS: Ascorbic Acid 500 MG Tablet PO (08:33)
[2017-12-19] MEDS: Magnesium Oxide 400 MG Tablet PO (08:34)
[2017-12-19] MEDS: Metoprolol Tartrate 25 MG Tablet 12.5 MG PO ×2 (08:34→21:18)
[2017-12-19] MEDS: Cyanocobalamin 500 MCG Tablet PO (08:34)
[2017-12-19] MEDS: Multivitamins,Therapeutic Tablet 1 TABLET PO (08:35)
[2017-12-19 09:07] LABS: AST(SGOT) 57 U/L (15-37); Alanine Aminotransfer ALT/SGPT 41 U/L (16-61); Albumin, Serum 2.1 g/dL (3.2-5.0); Alkaline Phosphatase 228 U/L (45-117); Bilirubin, Direct 0.43 mg/dL (0.00-0.30); Globulin 5.2 g/dL (2.2-4.2); Protein, Total 7.3 g/dL (6.4-8.2)
[2017-12-19 09:40] LABS: Fibrinogen 215 mg/dl (203-444)
--- NOTE | 2017-12-19 10:03 | PCM.PROGNOTE ---
Patient Problems: Active and Suspected Problems (Last Reviewed 11/16/17 @ 08:36 by Suzanne Ferris) ARF (acute renal failure) (Acute) Subjective: Patient seen and examined. Patient voices frustration with not knowing where bleeding is coming from. Patient states he does not feel any better than when he came into the hospital. Discussed with patient current plan of care, he is agreeable. - Physical Exam General: Alert, Oriented x3, Cooperative, No apparent distress HEENT: Atraumatic, PERRLA, EOMI, Normocephalic Neck: Supple, No JVD, Negative Carotid Bruits Lungs: Clear to auscultation, Normal air movement Cardiovascular: Regular rate, Regular Rhythm, Normal S1, Normal S2, No murmurs Abdomen: Bowel Sounds Present, Soft, Non Tender, Non-Distended Extremities: No clubbing, No cyanosis, Capillary Refill Less than 3 Seconds, Edema - +1 bilateral lower extremities Skin: No rashes, No breakdown Musculoskeletal: No Tenderness to Palpation of Joints or Extremities Neurological: Cranial nerves II-XII grossly intact, Neuro grossly intact Psych/Mental Status: Flat Affect, - Vital Signs Temp Pulse Resp BP Pulse Ox 97.9 F 60 18 133/64 H 97 12/19/17 08:30 12/19/17 08:34 12/19/17 08:30 12/19/17 08:30 12/19/17 08:30 Oxygen Flow Rate (L/min) [4] 2 Oxygen Flow Rate (L/min) [3] 2 Oxygen Flow Rate (L/min) [2] 2 Oxygen Flow Rate (L/min) [1 ( 2 Initial Baseline)] Oxygen Flow Rate (L/min) 2 Oxygen Delivery Method [4] Nasal Cannula Oxygen Delivery Method [3] Nasal Cannula Oxygen Delivery Method [2] Nasal Cannula Oxygen Delivery Method [1 ( Nasal Cannula Initial Baseline)] Oxygen Delivery Method Room Air Weight: 234 lb 15.992 oz Body Mass Index (BMI) 28.5 Finger Stick Blood Glucose 82 Intake and Output for Last 24 Hours 12/17/17 12/18/17 12/19/17 23:59 23:59 23:59 Intake Total 830 / 830 1981 / 1981 100 / 100 Output Total 1550 / 1550 1225 / 1225 350 / 350 Balance -720 / -720 757 / 757 -250 / -250 Microbiology Past 72 Hours 12/16/17 10:00 Gram Stain - Final Sputum, Expectorated/Coughed Respiratory Culture - Final Streptococcus group C 12/16/17 05:00 Blood Culture - Preliminary Blood Culture (Wb) - Right Hand No growth in 48 hours. 12/16/17 05:00 Blood Culture - Preliminary Blood Culture (Wb) - Anticubital Left No growth in 48 hours. 12/15/17 12:40 Legionella Antigen - Final Urine Catheter - [place] 12/15/17 12:40 Streptococcus pneumoniae Antigen (M - Final Urine Catheter - [place] Laboratory Tests Past 24 Hrs 12/16/17 12/16/17 12/18/17 05:00 05:00 07:15 WBC RBC Hgb Hct MCV MCH MCHC RDW RDW Differential Plt Count MPV Differential Comment Fibrinogen Sodium Potassium Chloride Carbon Dioxide Anion Gap BUN Creatinine Estim Creat Clear Calc Est GFR (MDRD) Af Amer Est GFR (MDRD) Non-Af BUN/Creatinine Ratio Glucose Calcium Total Bilirubin Direct Bilirubin Indirect Bilirubin AST ALT Alkaline Phosphatase Lactate Dehydrogenase Total Protein Total Protein (PEP) 6.8 Albumin Albumin (PEP) 2.4 L Globulin Globulin (PEP) 4.4 H Albumin/Globulin (PEP) 0.5 L Adqyu-8-Pkycsdjtv 0.3 Rskdz-5-Lcokqkjyc 0.5 Beta Globulins 0.6 L Gamma Globulins 3.0 H M-Vivek PEP Note Comment PEP Interpretation Comment ANDREZ Screen Negative c-ANCA Antibody <1:20 Atypical p-ANCA <1:20 p-ANCA Antibody <1:20 Blood Type Cancelled A1 Antigen Typing Cancelled Rho(D) Type Cancelled Antibody Screen NEGATIVE Direct Antiglob Test Crossmatch See Detail 12/19/17 12/19/17 12/19/17 06:47 06:47 06:47 WBC 3.7 L RBC 2.78 L Hgb 8.7 L Hct 27.4 L MCV 98.6 H MCH 31.3 MCHC 31.8 L RDW 21.8 H RDW Differential 75.0 H Plt Count 94 L MPV 10.2 Differential Comment Fibrinogen Sodium 142 Potassium 5.3 H Chloride 118 H Carbon Dioxide 19.0 L Anion Gap 5 BUN 64 H Creatinine 3.75 H Estim Creat Clear Calc 25.40 Est GFR (MDRD) Af Amer 21 L Est GFR (MDRD) Non-Af 18 L BUN/Creatinine Ratio 17.1 Glucose 82 Calcium 7.7 L Total Bilirubin Direct Bilirubin Indirect Bilirubin AST ALT Alkaline Phosphatase Lactate Dehydrogenase Cancelled Total Protein Total Protein (PEP) Albumin Albumin (PEP) Globulin Globulin (PEP) Albumin/Globulin (PEP) Lnpfc-4-Tvwjdgggg Mptkq-3-Bpaszwhzf Beta Globulins Gamma Globulins M-Vivek PEP Note PEP Interpretation ANDREZ Screen c-ANCA Antibody Atypical p-ANCA p-ANCA Antibody Blood Type A1 Antigen Typing Rho(D) Type Antibody Screen Direct Antiglob Test Crossmatch 12/19/17 12/19/17 12/19/17 06:47 08:45 08:45 WBC RBC Hgb Hct MCV MCH MCHC RDW RDW Differential Plt Count MPV Differential Comment Fibrinogen 215 Sodium Potassium Chloride Carbon Dioxide Anion Gap BUN Creatinine Estim Creat Clear Calc Est GFR (MDRD) Af Amer Est GFR (MDRD) Non-Af BUN/Creatinine Ratio Glucose Calcium Total Bilirubin 0.70 0.80 Direct Bilirubin 0.41 H 0.43 H Indirect Bilirubin 0.30 AST 57 H ALT 41 Alkaline Phosphatase 228 H Lactate Dehydrogenase 355 H Total Protein 7.3 Total Protein (PEP) Albumin 2.1 L Albumin (PEP) Globulin 5.2 H Globulin (PEP) Albumin/Globulin (PEP) Spyeg-1-Dnkhptsnc Yrcni-2-Icpvrjthb Beta Globulins Gamma Globulins M-Vivek PEP Note PEP Interpretation ANDREZ Screen c-ANCA Antibody Atypical p-ANCA p-ANCA Antibody Blood Type A1 Antigen Typing Rho(D) Type Antibody Screen Direct Antiglob Test Crossmatch 12/19/17 08:45 WBC RBC Hgb Hct MCV MCH MCHC RDW RDW Differential Plt Count MPV Differential Comment Fibrinogen Sodium Potassium Chloride Carbon Dioxide Anion Gap BUN Creatinine Estim Creat Clear Calc Est GFR (MDRD) Af Amer Est GFR (MDRD) Non-Af BUN/Creatinine Ratio Glucose Calcium Total Bilirubin Direct Bilirubin Indirect Bilirubin AST ALT Alkaline Phosphatase Lactate Dehydrogenase Total Protein Total Protein (PEP) Albumin Albumin (PEP) Globulin Globulin (PEP) Albumin/Globulin (PEP) Vwumy-2-Ovcjeepgw Fcdsx-4-Fwqxevmss Beta Globulins Gamma Globulins M-Vivek PEP Note PEP Interpretation ANDREZ Screen c-ANCA Antibody Atypical p-ANCA p-ANCA Antibody Blood Type A1 Antigen Typing Rho(D) Type Antibody Screen Direct Antiglob Test Pending Crossmatch Medical Necessity - Tobacco Use Smoking Status: Current some day smoker Assessment/Plan All Active Problems (Last Reviewed 11/16/17 @ 08:36 by Suzanne Ferris) GI bleed (Acute) ARF (acute renal failure) (Acute) Acute CVA (cerebrovascular accident) (Acute 10/27/17) 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) Atrial fibrillation (Acute) Sinus bradycardia (Acute) SOB (shortness of breath) (Acute) Atrioventricular block, type I (Acute) Premature ventricular contraction (Acute) Abnormal EKG (Acute) Bruit of left carotid artery (Acute) 1. Acute anemia on chronic iron deficiency anemia-History of upper GI bleed. Stool + OB. Status post 5 units PRBC. Plt X2. Continue PPI twice daily. Continue to hold anticoagulation. EGD with Dr. Sanabria 12/18/2017 with no source of bleeding. Plan for colonoscopy Thursday. Trend CBC. If colonoscopy Thursday shows no source of bleeding, Eliquis will be held at discharge. 2. Acute kidney injury, unclear etiology-nephrology involved. Kidney biopsy results pending. [place] in place. Continue gentle hydration. 3. Hyperkalemia-secondary to #2. Stable, continue to monitor. 4. History of CVA with residual dysphagia-ST evaluation. Patient denies cough, fever/chills. No leukocytosis. Pneumonia initially suspected on admission due to chest x-ray which showed bibasilar infiltrates, worse on the right side. Patient has had intermittent low-grade fever. Urine for strep and Legionella negative. Sputum culture shows strep C. PNA ruled out. Continue dietary modifications per speech therapy recommendations. 5. Thrombocytopenia-trend CBC. Plt given X2. 6. CAD s/p CABG-continue statin, metoprolol. Aspirin and Eliquis on hold. 7. Status post aortic valve replacement 8. Sick sinus syndrome status post pacemaker 9. Paroxysmal atrial fibrillation-continue metoprolol. Eliquis on hold secondary to #1. 10. Hypothyroidism-continue Synthroid. DVT prophylaxis-SCDs. This patient was seen by FAYE Mathew under the supervision of Dr. Danielson.
[2017-12-19] MEDS: Pantoprazole Sodium 40 MG Tablet PO (12:03)
[2017-12-19] MEDS: Atorvastatin Calcium 80 MG Tablet PO (21:17)
[2017-12-20] VITALS (10 sets, daily range): BP systolic 115–134; BP diastolic 61–75; PULSE 60–66; RESP 16–18; TEMP 36.8–37.2; O2SAT 95–96
[2017-12-20 06:14] LABS: Hematocrit 28.3 % (40-54); Hemoglobin 8.9 g/dl (13.0-16.5); Mean Corp Hgb Conc 31.4 g/gl (32-36); Mean Corpuscular Hgb 31.3 pg (27.0-32.0); Mean Corpuscular Volume 99.6 fL (80-94); Platelet Count 85 K/mm3 (150-450); RBC Distribution Width CV 21.4 % (11.6-14.6); Red Blood Count 2.84 M/mm3 (4.6-6.2); White Blood Count 3.8 K/mm3 (4.4-11.0)
[2017-12-20 06:18] LABS: Scan Indicated on CBC? Y/N YES- FLAGS NOTED
[2017-12-20 06:26] LABS: BUN 61 mg/dL (7-18); BUN/Creat Ratio 16.4 RATIO (10-20); Calcium,Total 7.6 mg/dL (8.5-10.1); Chloride 116 mmol/L (98-107); Creatinine, Serum 3.72 mg/dL (0.70-1.30); EST Glomerular Filtration Rate 18 mL/min (>60); Est Glom Filt Rate - Afr Amer 21 mL/min (>60); Glucose 82 mg/dL (74-106); Phosphorus 3.5 mg/dL (2.5-4.9); Potassium 5.3 mmol/L (3.5-5.1); Sodium Level 138 mmol/L (136-145)
[2017-12-20] MEDS: hydrALAZINE 25 MG Tablet PO ×3 (06:36→21:48)
[2017-12-20] MEDS: Levothyroxine 100 MCG Tablet 200 MCG PO (06:36)
[2017-12-20 06:42] LABS: Differential Comment SCAN
[2017-12-20] MEDS: Metoprolol Tartrate 25 MG Tablet 12.5 MG PO ×2 (09:10→21:49)
[2017-12-20] MEDS: Cyanocobalamin 500 MCG Tablet PO (09:10)
[2017-12-20] MEDS: Multivitamins,Therapeutic Tablet 1 TABLET PO (09:11)
[2017-12-20] MEDS: Ascorbic Acid 500 MG Tablet PO (09:11)
[2017-12-20] MEDS: Magnesium Oxide 400 MG Tablet PO (09:12)
[2017-12-20] MEDS: Pantoprazole Sodium 40 MG Tablet PO (09:12)
--- NOTE | 2017-12-20 09:52 | PCM.PROGNOTE ---
Patient Problems: Active and Suspected Problems (Last Reviewed 11/16/17 @ 08:36 by Suzanne Ferris) ARF (acute renal failure) (Acute) Subjective: Patient seen and examined. Resting in chair in no acute distress. To start bowel prep today for colonoscopy tomorrow. Denies current complaints. - Physical Exam General: Alert, Oriented x3, Cooperative HEENT: Atraumatic, PERRLA, EOMI, Normocephalic Neck: Supple, No JVD, Negative Carotid Bruits Lungs: Clear to auscultation, Normal air movement Cardiovascular: Regular rate, Regular Rhythm, Normal S1, Normal S2, No murmurs Abdomen: Bowel Sounds Present, Soft, Non Tender, Non-Distended Extremities: No clubbing, No cyanosis, Edema Skin: No rashes - +1 bilateral lower extremities, No breakdown Musculoskeletal: No Tenderness to Palpation of Joints or Extremities Neurological: Cranial nerves II-XII grossly intact, Neuro grossly intact Psych/Mental Status: Flat Affect Vital Signs Temp Pulse Resp BP Pulse Ox 98.3 F 64 18 115/62 95 12/20/17 09:09 12/20/17 09:15 12/20/17 09:09 12/20/17 09:09 12/20/17 09:09 Oxygen Flow Rate (L/min) [4] 2 Oxygen Flow Rate (L/min) [3] 2 Oxygen Flow Rate (L/min) [2] 2 Oxygen Flow Rate (L/min) [1 ( 2 Initial Baseline)] Oxygen Flow Rate (L/min) 2 Oxygen Delivery Method [4] Nasal Cannula Oxygen Delivery Method [3] Nasal Cannula Oxygen Delivery Method [2] Nasal Cannula Oxygen Delivery Method [1 ( Nasal Cannula Initial Baseline)] Oxygen Delivery Method Room Air Weight: 234 lb 15.992 oz Body Mass Index (BMI) 28.5 Finger Stick Blood Glucose 82 Intake and Output for Last 24 Hours 12/18/17 12/19/17 12/20/17 23:59 23:59 23:59 Intake Total 1981 / 1981 1810 / 1810 300 / 300 Output Total 1225 / 1225 1425 / 1425 400 / 400 Balance 757 / 757 385 / 385 -100 / -100 Microbiology Past 72 Hours 12/16/17 10:00 Gram Stain - Final Sputum, Expectorated/Coughed Respiratory Culture - Final Streptococcus group C 12/16/17 05:00 Blood Culture - Preliminary Blood Culture (Wb) - Right Hand No growth in 48 hours. 12/16/17 05:00 Blood Culture - Preliminary Blood Culture (Wb) - Anticubital Left No growth in 48 hours. Laboratory Tests Past 24 Hrs 12/19/17 12/20/17 12/20/17 08:45 05:30 05:30 WBC RBC Hgb Hct MCV MCH MCHC RDW RDW Differential Plt Count MPV Differential Comment Sodium 138 Potassium 5.3 H Chloride 116 H Carbon Dioxide 19.0 L BUN 61 H Creatinine 3.72 H Estim Creat Clear Calc 25.60 Est GFR (MDRD) Af Amer 21 L Est GFR (MDRD) Non-Af 18 L BUN/Creatinine Ratio 16.4 Glucose 82 Calcium 7.6 L Phosphorus 3.5 Albumin 2.0 L Complement C3 Pending Complement C4 Pending Direct Antiglob Test NEG w/POLYSPECIFIC 12/20/17 05:30 WBC 3.8 L RBC 2.84 L Hgb 8.9 L Hct 28.3 L MCV 99.6 H MCH 31.3 MCHC 31.4 L RDW 21.4 H RDW Differential 74.0 H Plt Count 85 L MPV 10.0 Differential Comment SCAN Sodium Potassium Chloride Carbon Dioxide BUN Creatinine Estim Creat Clear Calc Est GFR (MDRD) Af Amer Est GFR (MDRD) Non-Af BUN/Creatinine Ratio Glucose Calcium Phosphorus Albumin Complement C3 Complement C4 Direct Antiglob Test Medical Necessity - Tobacco Use Smoking Status: Current some day smoker Assessment/Plan All Active Problems (Last Reviewed 11/16/17 @ 08:36 by Suzanne Ferris) GI bleed (Acute) ARF (acute renal failure) (Acute) Acute CVA (cerebrovascular accident) (Acute 10/27/17) 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) Atrial fibrillation (Acute) Sinus bradycardia (Acute) SOB (shortness of breath) (Acute) Atrioventricular block, type I (Acute) Premature ventricular contraction (Acute) Abnormal EKG (Acute) Bruit of left carotid artery (Acute) 1. Acute anemia on chronic iron deficiency anemia-History of upper GI bleed. Stool + OB. Status post 5 units PRBC. Plt X2. Continue PPI twice daily. Continue to hold anticoagulation. EGD with Dr. Sanabria 12/18/2017 with no source of bleeding. Plan for colonoscopy Thursday12/21/17. Trend CBC. If colonoscopy Thursday shows no source of bleeding, Eliquis will be held at discharge. Fibrinogen 215. LDH 355. May consider hemoncology consult for further evaluation for anemia if c-scope unremarkable. 2. Acute kidney injury, unclear etiology-nephrology involved. Kidney biopsy results pending. [place] in place. Continue gentle hydration. 3. Hyperkalemia-secondary to #2. Stable, continue to monitor. 4. History of CVA with residual dysphagia-ST evaluation. Patient denies cough, fever/chills. No leukocytosis. Pneumonia initially suspected on admission due to chest x-ray which showed bibasilar infiltrates, worse on the right side. Patient has had intermittent low-grade fever. Urine for strep and Legionella negative. Sputum culture shows strep C. PNA ruled out. Continue dietary modifications per speech therapy recommendations. 5. Thrombocytopenia-trend CBC. Plt given X2. 6. CAD s/p CABG-continue statin, metoprolol. Aspirin and Eliquis on hold. 7. Status post aortic valve replacement 8. Sick sinus syndrome status post pacemaker 9. Paroxysmal atrial fibrillation-continue metoprolol. Eliquis on hold secondary to #1. 10. Hypothyroidism-continue Synthroid. DVT prophylaxis-SCDs. This patient was seen by FAYE Mathew under the supervision of Dr. Danielson.
[2017-12-20] MEDS: Electrolyte Solution/Peg's 4000 ML PO (15:02)
--- NOTE | 2017-12-20 16:05 | PCM.PN.REN ---
Patient Problems: Active and Suspected Problems (Last Reviewed 11/16/17 @ 08:36 by Suzanne Ferris) ARF (acute renal failure) (Acute) Subjective: scheduled for colonoscopy tomorrow. Creatnine slightly improved. No gross hematuria s/p kidney biopsy. No edema. - Physical Exam General: Alert, Oriented x3, Cooperative, No apparent distress Neck: Supple Lungs: Clear to auscultation Cardiovascular: Regular rate Abdomen: Bowel Sounds Present, Soft, Non Tender, Non-Distended Extremities: No edema Skin: No rashes Psych/Mental Status: Normal Affect, Appropriate, Alert and oriented to time, place, person, mood and affect Vital Signs Temp Pulse Resp BP Pulse Ox 98.2 F 60 18 125/61 H 96 12/20/17 15:12/20/17 15:12/20/17 15:12/20/17 15:12/20/17 15:09 Oxygen Flow Rate (L/min) [4] 2 Oxygen Flow Rate (L/min) [3] 2 Oxygen Flow Rate (L/min) [2] 2 Oxygen Flow Rate (L/min) [1 ( 2 Initial Baseline)] Oxygen Flow Rate (L/min) 2 Oxygen Delivery Method [4] Nasal Cannula Oxygen Delivery Method [3] Nasal Cannula Oxygen Delivery Method [2] Nasal Cannula Oxygen Delivery Method [1 ( Nasal Cannula Initial Baseline)] Oxygen Delivery Method Room Air Weight: 106.594 kg Body Mass Index (BMI) 28.5 Finger Stick Blood Glucose 82 Intake and Output for Last 24 Hours 12/18/17 12/19/17 12/20/17 23:59 23:59 23:59 Intake Total 1981 / 1981 1810 / 1810 1300 / 1300 Output Total 1225 / 1225 1425 / 1425 750 / 750 Balance 757 / 757 385 / 385 550 / 550 Microbiology Past 72 Hours 12/16/17 10:00 Gram Stain - Final Sputum, Expectorated/Coughed Respiratory Culture - Final Streptococcus group C 12/16/17 05:00 Blood Culture - Preliminary Blood Culture (Wb) - Right Hand No growth in 48 hours. 12/16/17 05:00 Blood Culture - Preliminary Blood Culture (Wb) - Anticubital Left No growth in 48 hours. Laboratory Tests Past 24 Hrs 12/20/17 12/20/17 12/20/17 05:30 05:30 05:30 WBC 3.8 L RBC 2.84 L Hgb 8.9 L Hct 28.3 L MCV 99.6 H MCH 31.3 MCHC 31.4 L RDW 21.4 H RDW Differential 74.0 H Plt Count 85 L MPV 10.0 Differential Comment SCAN Sodium 138 Potassium 5.3 H Chloride 116 H Carbon Dioxide 19.0 L BUN 61 H Creatinine 3.72 H Estim Creat Clear Calc 25.60 Est GFR (MDRD) Af Amer 21 L Est GFR (MDRD) Non-Af 18 L BUN/Creatinine Ratio 16.4 Glucose 82 Calcium 7.6 L Phosphorus 3.5 Albumin 2.0 L Complement C3 Pending Complement C4 Pending Medical Necessity - Tobacco Use Smoking Status: Current some day smoker Assessment/Plan All Active Problems (Last Reviewed 11/16/17 @ 08:36 by Suzanne Ferris) GI bleed (Acute) ARF (acute renal failure) (Acute) Acute CVA (cerebrovascular accident) (Acute 10/27/17) 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) Atrial fibrillation (Acute) Sinus bradycardia (Acute) SOB (shortness of breath) (Acute) Atrioventricular block, type I (Acute) Premature ventricular contraction (Acute) Abnormal EKG (Acute) Bruit of left carotid artery (Acute) 1. IRINA baseline creatinine 0.99 in October increased to 4.2 on admission to 3.7 today. Etiology unclear. + Proteinuria 2.3g, CrCl 27cc/min on 24h urine. Await renal biopsy results. ANDREZ negative, SPEP asymmetric gamma, UPEP pending. 2. Profound anemia off Eliquis and ASA, stool + for occult blood. colonscopy in am. 3. Hx GI bleed, min-en-y on PPI. 4. CAD s/p CABG, AVR bioprosthetic valve 5. Leg edema with nonnephrotic proteinuria resolved. 6. Gently hydrate
[2017-12-20] MEDS: 0.9% Normal Saline 1,000 ML 75 ML IV (16:53)
[2017-12-20] MEDS: Atorvastatin Calcium 80 MG Tablet PO (21:49)
[2017-12-21] VITALS (14 sets, daily range): BP systolic 116–143; BP diastolic 68–79; PULSE 60–96; RESP 14–18; TEMP 37–37.6; O2SAT 93–99; BMI 28.5
[2017-12-21] MEDS: Levothyroxine 100 MCG Tablet 200 MCG PO (05:36)
[2017-12-21] MEDS: hydrALAZINE 25 MG Tablet PO ×3 (05:37→20:28)
[2017-12-21 06:19] LABS: International Normalized Ratio 1.6; Prothrombin Time (Protime)PT. 18.6 SECONDS (11.7-14.9)
[2017-12-21 06:21] LABS: Hematocrit 26.4 % (40-54); Hemoglobin 8.3 g/dl (13.0-16.5); Mean Corp Hgb Conc 31.4 g/gl (32-36); Mean Corpuscular Hgb 31.3 pg (27.0-32.0); Mean Corpuscular Volume 99.6 fL (80-94); Mean Platelet Vol. 10.6 fl (6.2-12.0); Platelet Count 83 K/mm3 (150-450); RBC Distribution Width CV 20.8 % (11.6-14.6); RBC Distribution Width SD 72.8 fl (35.1-43.9); Red Blood Count 2.65 M/mm3 (4.6-6.2); White Blood Count 3.7 K/mm3 (4.4-11.0)
[2017-12-21 06:28] LABS: Scan Indicated on CBC? Y/N YES- FLAGS NOTED
[2017-12-21 06:40] LABS: Albumin, Serum 1.9 g/dL (3.2-5.0); BUN 62 mg/dL (7-18); Calcium,Total 7.7 mg/dL (8.5-10.1); Chloride 117 mmol/L (98-107); Creatinine, Serum 3.45 mg/dL (0.70-1.30); EST Glomerular Filtration Rate 19 mL/min (>60); Est Glom Filt Rate - Afr Amer 23 mL/min (>60); Estimated Creatinine Clearance 27.61 ml/min; Glucose 80 mg/dL (74-106); Phosphorus 3.8 mg/dL (2.5-4.9); Potassium 5.5 mmol/L (3.5-5.1); Sodium Level 140 mmol/L (136-145)
[2017-12-21] MEDS: 0.9% Normal Saline 1,000 ML 75 ML IV ×2 (06:58→20:27)
[2017-12-21 07:25] LABS: Differential Comment SCANNED
--- NOTE | 2017-12-21 09:49 | PN_ITS ---
<Neida Fischer - Last Filed: 12/21/17 09:50> Patient Problems: Active and Suspected Problems (Last Reviewed 11/16/17 @ 08:36 by Suzanne Ferris) Acute on chronic anemia (Acute) Hyperglobulinemia (Acute) Pancytopenia (Acute) ARF (acute renal failure) (Acute) Subjective: No acute events overnight. Patient states he tolerated bowel prep without difficulty. Plans for colonoscopy this afternoon. - Physical Exam General: Alert, Oriented x3, Cooperative HEENT: Atraumatic, PERRLA, EOMI, Normocephalic Neck: Supple, No JVD, Negative Carotid Bruits Lungs: Clear to auscultation, Normal air movement Cardiovascular: Regular rate, Regular Rhythm, Normal S1, Normal S2, No murmurs Abdomen: Bowel Sounds Present, Soft, Non Tender, Non-Distended Extremities: No clubbing, No cyanosis, No edema, Capillary Refill Less than 3 Seconds Skin: No rashes, No breakdown Musculoskeletal: No Tenderness to Palpation of Joints or Extremities Neurological: Cranial nerves II-XII grossly intact, Neuro grossly intact Psych/Mental Status: Normal Affect, Appropriate Vital Signs Temp Pulse Resp BP Pulse Ox 98.6 F 64 16 133/68 H 95 12/21/17 08:55 12/21/17 08:55 12/21/17 08:55 12/21/17 08:55 12/21/17 08:55 Oxygen Flow Rate (L/min) [4] 2 Oxygen Flow Rate (L/min) [3] 2 Oxygen Flow Rate (L/min) [2] 2 Oxygen Flow Rate (L/min) [1 ( 2 Initial Baseline)] Oxygen Flow Rate (L/min) 2 Oxygen Delivery Method [4] Nasal Cannula Oxygen Delivery Method [3] Nasal Cannula Oxygen Delivery Method [2] Nasal Cannula Oxygen Delivery Method [1 ( Nasal Cannula Initial Baseline)] Oxygen Delivery Method Room Air Weight: 234 lb 15.992 oz Body Mass Index (BMI) 28.5 Finger Stick Blood Glucose 82 Intake and Output for Last 24 Hours 12/19/17 12/20/17 12/21/17 23:59 23:59 23:59 Intake Total 1810 / 1810 4421 / 4421 391 / 391 Output Total 1425 / 1425 1500 / 1500 250 / 250 Balance 385 / 385 2921 / 2921 141 / 141 Microbiology Past 72 Hours 12/16/17 05:00 Blood Culture - Final Blood Culture (Wb) - Right Hand No growth in 5 days. 12/16/17 05:00 Blood Culture - Final Blood Culture (Wb) - Anticubital Left No growth in 5 days. 12/16/17 10:00 Gram Stain - Final Sputum, Expectorated/Coughed Respiratory Culture - Final Streptococcus group C Laboratory Tests Past 24 Hrs 12/21/17 12/21/17 12/21/17 05:32 05:32 05:32 WBC 3.7 L RBC 2.65 L Hgb 8.3 L Hct 26.4 L MCV 99.6 H MCH 31.3 MCHC 31.4 L RDW 20.8 H RDW Differential 72.8 H Plt Count 83 L MPV 10.6 Differential Comment SCANNED PT 18.6 H INR 1.6 Sodium 140 Potassium 5.5 H Chloride 117 H Carbon Dioxide 18.0 L BUN 62 H Creatinine 3.45 H Estim Creat Clear Calc 27.61 Est GFR (MDRD) Af Amer 23 L Est GFR (MDRD) Non-Af 19 L BUN/Creatinine Ratio 18.0 Glucose 80 Calcium 7.7 L Phosphorus 3.8 Albumin 1.9 L Medical Necessity - Tobacco Use Smoking Status: Current some day smoker Assessment/Plan All Active Problems (Last Reviewed 11/16/17 @ 08:36 by Suzanne Ferris) Acute on chronic anemia (Acute) Hyperglobulinemia (Acute) Pancytopenia (Acute) GI bleed (Acute) ARF (acute renal failure) (Acute) Acute CVA (cerebrovascular accident) (Acute 10/27/17) 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) Atrial fibrillation (Acute) Sinus bradycardia (Acute) SOB (shortness of breath) (Acute) Atrioventricular block, type I (Acute) Premature ventricular contraction (Acute) Abnormal EKG (Acute) Bruit of left carotid artery (Acute) 1. Acute anemia on chronic iron deficiency anemia-History of upper GI bleed. Stool + OB. Status post 5 units PRBC. Plt X2. Continue PPI twice daily. Continue to hold anticoagulation. EGD with Dr. Sanabria 12/18/2017 with no source of bleeding. Plan for colonoscopy Thursday12/21/17. Trend CBC. If colonoscopy shows no source of bleeding, Eliquis will be held at discharge. Fibrinogen 215. LDH 355. Hematology consulted for further evaluation for anemia. 2. Acute kidney injury, unclear etiology-nephrology involved. Kidney biopsy results pending. [place] in place. Continue gentle hydration. Serologies pending. 3. Hyperkalemia-secondary to #2. Stable, continue to monitor. 4. History of CVA with residual dysphagia-ST evaluation. Patient denies cough, fever/chills. No leukocytosis. Pneumonia initially suspected on admission due to chest x-ray which showed bibasilar infiltrates, worse on the right side. Patient has had intermittent low-grade fever. Urine for strep and Legionella negative. Sputum culture shows strep C. PNA ruled out. Continue dietary modifications per speech therapy recommendations. 5. Thrombocytopenia-trend CBC. Plt given X2. 6. CAD s/p CABG-continue statin, metoprolol. Aspirin and Eliquis on hold. 7. Status post aortic valve replacement 8. Sick sinus syndrome status post pacemaker 9. Paroxysmal atrial fibrillation-continue metoprolol. Eliquis on hold secondary to #1. 10. Hypothyroidism-continue Synthroid. DVT prophylaxis-SCDs. This patient was seen by FAYE Mathew under the supervision of Dr. Raines. <Loki Raines F - Last Filed: 12/21/17 15:18> - Physical Exam Vital Signs Temp Pulse Resp BP Pulse Ox 99.0 F 61 16 134/78 H 96 12/21/17 15:13 12/21/17 15:13 12/21/17 15:13 12/21/17 15:13 12/21/17 15:13 Oxygen Flow Rate (L/min) [4] 2 Oxygen Flow Rate (L/min) [3] 2 Oxygen Flow Rate (L/min) [2] 2 Oxygen Flow Rate (L/min) [1 ( 2 Initial Baseline)] Oxygen Flow Rate (L/min) 2 Oxygen Delivery Method [4] Nasal Cannula Oxygen Delivery Method [3] Nasal Cannula Oxygen Delivery Method [2] Nasal Cannula Oxygen Delivery Method [1 ( Nasal Cannula Initial Baseline)] Oxygen Delivery Method Room Air Weight: 234 lb 15.992 oz Body Mass Index (BMI) 28.5 Finger Stick Blood Glucose 82 Intake and Output for Last 24 Hours 12/19/17 12/20/17 12/21/17 23:59 23:59 23:59 Intake Total 1810 / 1810 4421 / 4421 691 / 691 Output Total 1425 / 1425 1500 / 1500 250 / 250 Balance 385 / 385 2921 / 2921 441 / 441 Microbiology Past 72 Hours 12/16/17 05:00 Blood Culture - Final Blood Culture (Wb) - Right Hand No growth in 5 days. 12/16/17 05:00 Blood Culture - Final Blood Culture (Wb) - Anticubital Left No growth in 5 days. 12/16/17 10:00 Gram Stain - Final Sputum, Expectorated/Coughed Respiratory Culture - Final Streptococcus group C Laboratory Tests Past 24 Hrs 12/20/17 12/21/17 12/21/17 05:30 05:32 05:32 WBC 3.7 L RBC 2.65 L Hgb 8.3 L Hct 26.4 L MCV 99.6 H MCH 31.3 MCHC 31.4 L RDW 20.8 H RDW Differential 72.8 H Plt Count 83 L MPV 10.6 Differential Comment SCANNED PT INR Sodium 140 Potassium 5.5 H Chloride 117 H Carbon Dioxide 18.0 L BUN 62 H Creatinine 3.45 H Estim Creat Clear Calc 27.61 Est GFR (MDRD) Af Amer 23 L Est GFR (MDRD) Non-Af 19 L BUN/Creatinine Ratio 18.0 Glucose 80 Calcium 7.7 L Phosphorus 3.8 Total Protein (PEP) Pending Albumin 1.9 L IgG Pending IgA Pending IgM Pending Albumin (EDISON) Pending Albumin/Globulin (EDISON) Pending Dsdyt-2-Ixocldsjb EDISON Pending Janlx-8-Jebnbojbw EDISON Pending Beta-Globulins (EDISON) Pending Gamma Globulins (EDISON) Pending EDISON M-Vivek Pending Complement C3 Pending Complement C4 Pending Free [place] LC, Quant Pending Free Lambda LC, Quant Pending Free [place]/Lambda Ratio Pending 12/21/17 05:32 WBC RBC Hgb Hct MCV MCH MCHC RDW RDW Differential Plt Count MPV Differential Comment PT 18.6 H INR 1.6 Sodium Potassium Chloride Carbon Dioxide BUN Creatinine Estim Creat Clear Calc Est GFR (MDRD) Af Amer Est GFR (MDRD) Non-Af BUN/Creatinine Ratio Glucose Calcium Phosphorus Total Protein (PEP) Albumin IgG IgA IgM Albumin (EDISON) Albumin/Globulin (EDISON) Mgsfh-2-Swfveddtm EDISON Sylhm-1-Zhrfefyno EDISON Beta-Globulins (EDISON) Gamma Globulins (EDISON) EDISON M-Vivek Complement C3 Complement C4 Free Pam[place]o LC, Quant Free Lambda LC, Quant Free [place]/Lambda Ratio Code Visit Addendum: Dr. Raines I personally examined the patient and reviewed the chart. I agree with the above. 62-year-old male here with chronic anemia and heme-positive stools. An EGD yesterday which was negative and his colonoscopy this afternoon was also negative. States that he feels okay other than fatigue which he is used to. 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 He has had previous marginal ulcers leading to bleeds. We will plan on a tagged red blood cell scan to investigate whether or not he is bleeding from his gastric remnant. Appreciate recommendations from both oncology and nephrology. Will pursue further workup for possible multiple myeloma. Inpatient E&M: [id number] Subs Hosp L2
--- NOTE | 2017-12-21 10:25 | CON.PCM_ITS ---
Subjective Date of Service:: 12/21/17 Chief Complaint: Anemia History of Present Illness: Mr. 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 He presented to [facility] ED on 12/14/17 subsequent to having blood work for his pcp, Dr. Tapan Cuellar in the ambulatory setting which revealed a Hgb 7.5, BUN 70 and creatinine is 4.12. Stool guaiac positive. Anticoagulation has been held. He underwent an EGD 12/18/17 which was essentially unremarkable and right renal biopsy on 12/18/17 pathology of which is still pending. Has received 5 units of PRBCs this admission and 2 pks platelets. Patient reports chronic fatigue with exertional dyspnea exacerbations. States he takes b12 PO daily and has required intermittent iron infusions in the past, last being 2016. Patient is a good historian and vividly describes previous 3 episodes of GI bleed in the past, 1997, 2014 and 2015. States during those episodes he noted cruz blood and instantly felt dizzy/lightheaded after experiencing hematochezia. Denies melena/hematochezia of late. Specifically den ies weight loss, CP, new onset bone pain, abd pain and any other overt episodes of bleeding, although admits he bruises easily. States tolerated bowel prep well and is expected to undergo colonoscopy later today. Past family history as listed below. Past Medical History: Chronic Problems (Last Reviewed 11/16/17 @ 08:36 by Suzanne Ferris) Nicotine abuse (Chronic) Premature atrial contractions (Chronic) Left ventricular hypertrophy (Chronic) senior care current use of 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 (Chronic) Presence of permanent cardiac pacemaker (Chronic ~05/13/17) [employer]; Mitral valve insufficiency and aortic valve insufficiency (Chronic) Sick sinus syndrome (Chronic) S/P permanent pacemaker 05/13/2017; S/P aortic valve replacement (Chronic ~05/07/17) 27mm [employer] Tirfecta pericardial valve Aortic stenosis (Chronic) S/P valve replacement with 27mm [employer]i Trifecta pericardial valve; Atherosclerotic heart disease of [place] coronary artery without angina pectoris (Chronic) Hyperlipidemia (Chronic) Ventricular hypertrophy (Chronic) Past Medical/Surgical History: Past Medical History - Most Recent Inpatient Visit Past Medical History Start: 12/15/17 00:30 Text: Status: Complete Freq: ONCE Protocol: Document 12/15/17 00:40 [facility] [place] [facility] (Rec: 12/15/17 00:46 [facility] [id number]) BMI Required to complete PMH What is Patient's BMI 28.6 Neurologic Medical History Hx Stroke/TIA Yes Hx Dementia/Alzheimer's No Hx Parkinson's Disease No Hx Seizures No Hx Multiple Sclerosis No Hx Migraines No Cardiac Medical History VTE Present on Admission No Hx Hypertension Yes Hx Chest Pain/Angina No Hx Heart Attack No Hx Cardiac Surgery/Stents/Etc. Yes: aortic valve and pacemaker Hx Heart Failure No Hx Pacemaker/AICD Yes Hx Irregular Heartbeat and/or Afib No Hx Anticoagulant Therapy Yes Query Text:(Coumadin, Aspirin, Plavix, Xarelto, etc.) Hx Pain in Legs when Walking/Leg Cramps No Respiratory Medical History Hx COPD No Hx Emphysema No Hx Smoking Yes Smoking Status Current some day smoker Hx Tobacco Use in last 12 months Yes Sent to [facility] Yes Hx Sleep Apnea No Do you snore loudly (louder than talking Yes or can be heard through closed doors)? Do you often feel tired/ fatigued/ Yes sleepy during daytime? Has anyone observed you stop breathing No during sleep? STOP Results Positive GI Medical History Hx Ulcer Yes: GI bleed Hx Hepatitis No Hx Cirrhosis No Hx GI Bleed No Hx Unplanned Weight Loss No Genitourinary Medical History Indwelling Catheter in Place on Arrival/ No Admission Hx Renal Disease No Hx Dialysis No Musculoskeletal History Hx Arthritis No Hx Rheumatoid Arthritis No Endocrine Medical History Hx Diabetes No Hx Thyroid Disease Yes: hypothyroid Hematologic Medical History Hx of Blood Transfusion Yes Hx of Transfusion in last 3 Months No Ever experience any problems with No transfusion(s)? Hx of Preganancy in last 3 Months N/A Nurse Filling Out Transfusion & MPROKOP Questions: Date: 12/15/17 Time: 00:45 Psycho/Social Medical History Hx Depression No Hx Anxiety No Hx Behavior Disorder No Hx Alcohol Use Yes: rare Hx Substance Use No Other Medical History Hx Blood Disorders Yes Hx Anemia Yes Hx Cancer No Hx Drug Resistant Organism No Wound/Pressure Injury Present on Arrival No /Admission Query Text:If yes, chart assessment in Shift/Clinical Findings Central Line/PICC/VAD Present on Arrival No /Admission Risk for Readmission Number of Risk Factors 6 At Risk for Readmission Patient is At Risk For Readmission Patient is eligible for Call Back Y Past Medical History (Last Reviewed 11/16/17 @ 08:36 by Suzanne Ferris) Acute CVA (cerebrovascular accident) (Acute 10/27/17) 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) Atrial fibrillation (Acute) Sinus bradycardia (Acute) Presence of permanent cardiac pacemaker (Chronic ~05/13/17) Mitral valve insufficiency and aortic valve insufficiency (Chronic) Sick sinus syndrome (Chronic) SOB (shortness of breath) (Acute) Aortic stenosis (Chronic) Atherosclerotic heart disease of [place] coronary artery without angina pectoris (Chronic) Atrioventricular block, type I (Acute) Premature ventricular contraction (Acute) Abnormal EKG (Acute) Hyperlipidemia (Chronic) Ventricular hypertrophy (Chronic) Bruit of left carotid artery (Acute) Anemia, iron deficiency (Acute) Hypothyroidism (Acute) Retinal embolus (Acute) Tobacco abuse (Acute) Past Surgical History (Last Reviewed 11/16/17 @ 08:36 by Suzanne Ferris) S/P aortic valve replacement (Chronic ~05/07/17) History of carpal tunnel surgery (Resolved) History of gastric bypass (Resolved) History of knee surgery (Resolved) Maternal Family History: Family History (Last Reviewed 11/16/17 @ 08:36 by Suzanne Ferris) Father CAD (coronary artery disease) Mother CAD (coronary artery disease) Thyroid disorder Sister Thyroid cancer Family History: No pertinent history - Social History Smoking Status: Current some day smoker Allergies/Adverse Reactions: Allergy/AdvReac Type Severity Reaction Status Date / Time Penicillins Allergy Hives Verified 12/14/17 21:35 Review of Systems Constitutional:: Reports: Fatigue. Denies: Fever, Sweats, Weight loss, Appetite change, Chills Cardiovascular:: Reports: Dyspnea on exertion. Denies: Chest pain, Palpitations, Orthopnea, PND, Shortness of breath Respiratory: Denies: Cough, Hemoptysis, Wheezing Gastrointestinal:: Denies: Abdominal pain, Nausea, Vomiting, Diarrhea, Constipation, Melena, Hematochezia Genitourinary: Denies: Dysuria, Hematuria, Urinary frequency, Nocturia, Flank pa in Musculoskeletal:: Denies: Back pain, Myalgia, Arthralgia Skin: Denies: Rash, Skin Changes, Wounds Neurological:: Denies: Headache, Dizziness, Numbness, Tingling, Visual changes, Tinnitus, Hearing loss Psychiatric: Denies: Anxiety, Depression, Homicidal Ideations, Suicidal Ideations Vital Signs Height 6 ft 4 in Weight: 234 lb 15.992 oz Weight in Pounds 235.0 lbs Pulse Ox 95 Temperature 98.6 F Pulse Rate [4] 62 Pulse Rate [3] 71 Pulse Rate [2] 62 Pulse Rate [1 (Initial 92 Baseline)] Pulse Rate [Right Radial] 78 Pulse Rate 64 Respiratory Rate [4] 18 Respiratory Rate [3] 16 Respiratory Rate [2] 16 Respiratory Rate [1 (Initial 14 Baseline)] Respiratory Rate 16 Blood Pressure [BP] 132/63 Blood Pressure [4] 135/73 Blood Pressure [3] 130/71 Blood Pressure [2] 133/77 Blood Pressure [1 (Initial 119/64 Baseline)] Blood Pressure 133/68 Blood Pressure Position [BP] Semi-Fowlers Blood Pressure Position Semi-Fowlers - Physical Exam General: Alert, Oriented x3, No apparent distress HEENT: Atraumatic, Normocephalic Oropharynx:: Negative for: Dry mucosa, Ulcerated lesions Neck:: Supple, Trachea midline. Negative for: JVD, bilateral Cardiac:: Regular rate, Regular rhythm, Normal S1, Normal S2 Lungs: Clear to auscultation, Excusion symmetrical. Negative for: Rhonchi, Wheezes Abdomen:: Bowel sounds x 4, Soft, Non-tender, Non-distended, - - herring cath in place, draining tea colored urine with visable sentiment. Negative for: Hepatosplenomegaly Extremities:: Negative for: Cyanosis, Edema Neurological: Neuro grossly intact Skin:: Negative for: Lesions, Rash, Petechiae, Ecchymosis Psychiatric:: Appropriate affect, Euthymic Lymphatics:: Negative for: Cervical lymphadenopathy, Supraclavicular lymphadenopathy, Axillary lymphadenopathy Laboratory Data: Microbiology 12/16/17 05:00 Blood Culture - Final Blood Culture (Wb) - Right Hand No growth in 5 days. 12/16/17 05:00 Blood Culture - Final Blood Culture (Wb) - Anticubital Left No growth in 5 days. 12/16/17 10:00 Gram Stain - Final Sputum, Expectorated/Coughed Respiratory Culture - Final Streptococcus group C Laboratory Tests 12/21/17 12/21/17 12/21/17 Range/Units 05:32 05:32 05:32 WBC 3.7 L (4.4-11.0) K/mm3 RBC 2.65 L (4.6-6.2) M/mm3 Hgb 8.3 L (13.0-16.5) g/dl Hct 26.4 L (40-54) % MCV 99.6 H (80-94) fL MCH 31.3 (27.0-32.0) pg MCHC 31.4 L (32-36) g/gl RDW 20.8 H (11.6-14.6) % RDW Differential 72.8 H (35.1-43.9) fl Plt Count 83 L (150-450) K/mm3 MPV 10.6 (6.2-12.0) fl Differential Comment SCANNED PT 18.6 H (11.7-14.9) SECONDS INR 1.6 Sodium 140 (136-145) mmol/L Potassium 5.5 H (3.5-5.1) mmol/L Chloride 117 H (98-107) mmol/L Carbon Dioxide 18.0 L (21.0-32.0) mmol/L BUN 62 H (7-18) mg/dL Creatinine 3.45 H (0.70-1.30) mg/dL Estim Creat Clear Calc 27.61 ml/min Est GFR (MDRD) Af Amer 23 L (>60) mL/min Est GFR (MDRD) Non-Af 19 L (>60) mL/min BUN/Creatinine Ratio 18.0 (10-20) RATIO Glucose 80 (74-106) mg/dL Calcium 7.7 L (8.5-10.1) mg/dL Phosphorus 3.8 (2.5-4.9) mg/dL Albumin 1.9 L (3.2-5.0) g/dL Diagnostic Data: Diagnostic Data Renal Ultrasound 12/15/17 09:28 IMPRESSION: 1. Normal ultrasound of the kidneys. 2. The urinary bladder is not visualized. 3. Incidental note of gallstones and mild pericholecystic fluid. The gallbladder is partially contracted, precluding accurate evaluation of mural thickness. Acute cholecystitis is not excluded by this study, however. 4. Fatty infiltration of the liver. Electronically Signed: Christ Vela MD at 16:09 EDT , Service support , Chest X-Ray 12/16/17 09:16 IMPRESSION: Residual bibasilar infiltrates worse on the right side with the blunting of both costophrenic angles worse on the right side Electronically Signed: Yovsany Carlos MD at 11:10 EDT Tel [phone], Service support , Videofluoroscopic Swallow 12/17/17 13:30 IMPRESSION: Penetration and silent aspiration with ingestion of thin liquids. This improves with the chin tuck maneuver. The swallow study findings were discussed with the patient by the speech pathologist at the conclusion of the examination. Please see speech pathology report for more information and recommendations. Electronically Signed: Yosvany Carlos MD at 14:19 EDT Tel [phone], Service support , Biopsy CT 12/18/17 10:30 IMPRESSION: Successful CT guided percutaneous kidney biopsy. Conscious sedation protocol was followed. Electronically Signed: Yosvany Carlos MD at 12:38 EDT Tel [phone], Service support , Assessment and Plan 1. Acute on chronic anemia - PMH positive for several incidences of upper GI bleed and iron deficiency associated with malabsorption r/t gastric bypass as well as B12 deficiency. Stool positive for occult blood. Status post 5 units PRBCs. Continue PPI twice daily. EGD under the care of Dr. Sanabria on 12/18/2017 did not identify a source of bleeding. Scheduled for colonoscopy later today. G lobulin level elevated, hypoalbuminemia present. Corrected calcium 9.22. Differentials include a plasma cell dyscrasia. Orders placed for serum protein electrophoresis with immunofixation, serum free light chain assay, urine immunofixation electrophoresis and bone marrow biopsy with cytogenetics, flow cytometry and FISH myeloma and MDS panels. In the event SPEP returns showing no evidence of presence of M protein, will omit FISH myeloma panel on path order. 2. Pancytopenia-as evidenced by platelet count of 83,000 and WBC 3.7. S/p platelet transfusion X2. Orders placed for MDS panel on BMBX specimen. 3. Acute kidney injury, unclear etiology- Right renal biopsy 12/18/17. Pathology pending. Nephrology involved. Case discussed with Dr. Rizvi who was in agreement with the aforementioned plan. Case also discussed with primary team, Dr. Raines and JORGE Drummond. Vera Stanton, MSN, BONDING MACHINE SETTER-C, AOCNP Primary Care Provider: Tapan Cuellar DO Referring Provider: - Problem List (1) ARF (acute renal failure) Status: Acute Qualifiers: Acute renal failure type: unspecified Qualified Code(s): N17.9 - Acute kidney failure, unspecified (2) Acute on chronic anemia Status: Acute (3) Hyperglobulinemia Status: Acute (4) Pancytopenia Status: Acute
--- NOTE | 2017-12-21 12:56 | PCM.IMDPSTOP ---
Immediate Post-Op Note Date of Procedure: 12/18/17 Primary Surgeon/Physician: Sandie Sanabria graining machine operator: NOT,DEFINED Pre-Operative Diagnosis: anemia, rule out GI bleed Post-Operative Diagnosis: normal colonoscopy Surgery/Procedure Performed:: colonoscopy Description of Surgical Findings:: no stigmata of bleeding noted, normal colon Estimated Blood Loss: none Specimen's removed: none Type of Anesthesia:: MAC ASA Class: ASA2 Mod Systematic Disease
--- NOTE | 2017-12-21 12:59 | OP.PCM_ITS ---
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 Appropriate time out protocol was followed. He was then placed in the supine position. Appropriate cardiac, blood pressure, and pulse oximetry monitoring was placed. After stable vital signs were noted, the patient was given intravenous conscious sedation. The patient was then placed in the left lateral decubitis position. The colonoscope was lubricated and carefully inserted into the patient?s anus. It was then advanced into the rectum, then into the sigmoid colon, then into the left descending colon, past the splenic flexure, into the transverse colon, past the hepatic flexure, then down into the right descending colon and into the cecum. The cecum was identified by: transillumination, confluence of the tenae coli, identification of the ileocecal valve and appendiceal orifice, and external pressure with indentation. At this point, the colonoscope was slowly retracted back and the entire colonic mucosa was examined. There was no evidence of extrinsic compression and no inflammatory changes were noted. No stigmata of bleeding was noted in the entire colon. No intraluminal obstructing lesions, no strictures, and no ulcers were noted. The colon cleansing preparation was good. Retroflex view in the rectum revealed no lesions in the rectal vault except for hemorrhoids. The colonoscope was removed intact. Patient tolerated procedure well. - Complications none noted
[2017-12-21] MEDS: Multivitamins,Therapeutic Tablet 1 TABLET PO (15:21)
[2017-12-21] MEDS: Metoprolol Tartrate 25 MG Tablet 12.5 MG PO ×2 (15:22→20:27)
[2017-12-21] MEDS: Magnesium Oxide 400 MG Tablet PO (15:23)
[2017-12-21] MEDS: Ascorbic Acid 500 MG Tablet PO (15:24)
[2017-12-21] MEDS: Cyanocobalamin 500 MCG Tablet PO (15:24)
[2017-12-21] MEDS: Pantoprazole Sodium 40 MG Tablet PO (15:29)
[2017-12-21 16:10] LABS: PROELU- Albumin, Urine 32.3 % (.); PROELU- Alpha-1-Globulin,Ur 2.5 % (.); PROELU- Alpha-2-Globulin,Ur 7.7 % (.); PROELU- Gamma Globulin, Ur 42.4 % (.); Total Protein, Ur 101.6 mg/dL (Not Estab.)
[2017-12-21 17:13] LABS: Immature Platelet Fraction 4.1 % (1.0-7.9); RET-HE 31.4 pg (30-35); Reticulocyte Count 1.25 % (0.5-1.5)
[2017-12-21] MEDS: Atorvastatin Calcium 80 MG Tablet PO (20:28)
[2017-12-22] VITALS (16 sets, daily range): BP systolic 103–144; BP diastolic 46–74; PULSE 61–71; RESP 16–28; TEMP 36.8–37.8; O2SAT 93–99
--- NOTE | 2017-12-22 | BMB_PTH ---
PATIENT: DAKOTA RIVERA LOC: MS2 U#:[id number] AGE/SX: 62/M [place] [facility] [place]15/[address]: Dr. Loki Raines MD : 1955 BED: 1 DIS: 12/24/2017 SPEC #: [id number] RECD: 12/22/17 13:46 STATUS: AMBER REQ #: [id number] JAYASHREE: 12/22/17 00:[address]: Loki Raines DEPT: BONE MARROW RECD BY: Monty Villa ENTERED: 12/22/17 13:47 SP TYPE: BMB OTHR DR: DO Dr. Sandie Siu MD Dr. Mansour Isckarus, MD Dr. Mark Stutzman, DO Dr. Ambrocio Randle MD Tissues: A - Bone marrow, NOS B - Bone marrow, NOS C - Bone marrow, NOS Procedures: PERIPH Decalcification bone/plaque Bone Marrow Aspiration Special Stain Group II PAS Stain (control) Retic (control) Iron Stain (control) Andrews Stain (control) Bone Marrow Core Biopsy Iron Stain Bone Marrow HEADER OPERATION: Bone marrow biopsy and aspiration PRE-OP DIAGNOSIS: Chronic anemia, acute renal failure TISSUE SUBMITTED: A - Core, B - Clot, C - Smears, and send outs (flow, cytogenetics, MDS and plasma cell analysis) BONE MARROW DIAGNOSIS Left hip bone marrow core, clot and aspirate smears: Normocellular marrow with mild plasmacytosis. Iron - absent. Peripheral blood - macrocytic anemia and thrombocytopenia. Flow cytometry study from [place] shows no evidence for abnormal myeloid maturation or an increased blast population. There is no evidence for a lymphoproliferative disorder or plasma cell neoplasm. The complete report is viewable in patient's EMR. Cytogenetic studies are pending at this time. SJ:huma 12/25/17 COMMENT Immunohistochemistry ([id number]) supports the diagnosis of mild plasmacytosis. Definite monoclonality is not seen. Clinical correlation and appropriate follow up are necessary. BONE MARROW STUDY Slides are reviewed. CBC DATE: 12/22/17 WBC 4.0; RBC 2.83; HGB 8.9; HCT 28.2; MCV 99.6; RDW 20.6; PLTS 84,000 SEGS 61.1%; LYMPHS 30.5%; MONOS 7.8%; EOS 0.3%; BASOS 0.3% PERIPHERAL SMEAR: Submitted. RBC: Macrocytic anemia. WBC: Leukopenia. The WBC count is compatible to as reported above. PLTS: Decreased. BONE MARROW ASPIRATE DIFFERENTIAL: 200 cell count. Blasts % (normal 0-2): 1 Promyelocytes % (normal 1-5): 1 Myelocytes and metamyelocytes % (normal 17-41): 32 Bands and Segs % (normal 15-32): 34 Eos % (normal 1-6): 1 Basos % (normal 0-1): 0 Monocytes % (normal 0-4): 0 Erythroid Precursors % (normal 17-35): 12 Lymphocytes % (normal 7-13): 14 Plasma Cells % (normal 0-2): 5 ASPIRATE FINDINGS: Site: Left hip Paucispicular, Cellular M/E ratio: 5.6 (Normal 1.5-4.0) Megakaryocytes: Present. Micro- and hypolobated megakaryocytes are noted. Erythropoiesis: Normoblastic. Granulopoiesis: Progressive and unremarkable. Comment: Mild increase of plasma cells is noted. Plasma cells appear mature. CORE BIOPSY FINDINGS: Site: Left hip Adequacy: Adequate Cellularity: 50% M/E ratio: Within normal limits. Megakaryocytes: Present and adequate in number. Bony trabeculae: Unremarkable. Granulomas: Absent. Lymphoid aggregate: Absent. Atypical infiltrate: Present. Comment: Mild increase of plasma cells is noted. IHC ([id number]) supports the diagnosis of mild plasmacytosis. Definite monoclonality is not seen. ASPIRATE CLOT FINDINGS: Site: Left hip Marrow particles: Numerous Cellularity: 40% M/E ratio: Within normal limits. Megakaryocytes: Present and adequate in number. Granulomas: Absent. Lymphoid aggregates: Absent. Atypical infiltrates: Present. Comment: Mild increase of plasma cells is noted. Focal clustering is also noted. IHC ([id number]) supports the diagnosis of mild plasmacytosis. Definite monoclonality is not seen. SPECIAL STAINS WITH MATCHED CONTROLS: Iron: Absent Reticulin: No significant increase of reticulin fibers is noted. PAS: Highlights myeloid cells and megakaryocytes. BONE MARROW GROSS A - Received is a container labeled with the patient's name and designated left hip. The specimen consists of a minute fragment of bone measuring 0.2 x 0.2 x 0.1 cm and also received are multiple fragments of bone measuring in aggregate 1.2 x 0.5 x 0.1 cm. The specimen is totally submitted in one cassette after decalcification. B - Received labeled with the patient's name and designated left hip is a specimen that consists of approximately 5 cc of bloody fluid that on filtration yields multiple minute fragments of blood clots measuring in aggregate 2 x 0.7 cm and <0.1 cm in thickness. The specimen is totally submitted in one cassette. C - Also received are 11 unstained and 1 peripheral stained slides. The unstained slides are submitted for appropriate staining. Also received is one green top tube which is sent to our reference lab for flow, cytogenetics, MDS and plasma cell analysis. / SJ:rg 12/22/17 TC:5 CPT: 76047, 69735, 06950 x2, 26486 x3, 90347 ADDENDUM ADDENDUM ADDENDUM ADDENDUM ADDENDUM ADDENDUM ADDENDUM ADDENDUM ADDENDUM ADDENDUM ADDENDUM ADDENDUM 01/07/2018 10:28 ADDENDUM 01/21/2018 09:55 ADDENDUM 01/07/2018 10:28 ADDENDUM 01/07/2018 10:28 ADDENDUM 01/07/2018 10:28 ADDENDUM 01/07/2018 10:28 CYTOGENETICS REPORT FROM [facility] INTERPRETATION: Karyotype: 46,XY[20] A normal male karyotype was observed in twenty metaphases analyzed. [facility]QU[facility] REPORT FROM [facility] RESULT SUMMARY: Normal Please see complete report in e-chart or EMR for further details This addendum is added to incorporate an outside pathology consultation report. The case was examined at [facility] (#[id number]) and the following diagnosis was rendered. Bone marrow, aspirate smears, core biopsy and clot section with peripheral blood smear: Normocellular marrow (40%) with trilineage hematopoiesis. Mild increase in polytypic plasma cells. Normocytic anemia and thrombocytopenia. Please see complete above mentioned consultation report in EMR
--- NOTE | 2017-12-22 | IMM_PTH ---
PATIENT: DAKOTA RIVERA LOC: MS2 U#:[id number] AGE/SX: 62/M [place] [facility] [id number] RE12/15/[address]: Dr. Loki Raines MD : 1955 BED: 1 DIS: 12/24/2017 SPEC #: [id number] RECD: 12/23/17 10:18 STATUS: AMBER REQ #: [id number] JAYASHREE: 12/22/17 00:[address]: Loki Raines DEPT: IMMUNOHISTOCHEMISTRY RECD BY: Naya Chung ENTERED: 12/23/17 10:19 SP TYPE: IMMUNO OTHR DR: DO Dr. Sandie Siu MD Dr. Mansour Isckarus, MD Dr. Mark Stutzman, DO Dr. Paul Nielsen, MD Tissues: A - Bone marrow of iliac crest B - Bone marrow of iliac crest Procedures: CD138 (initial) KAPPA (add) LAMBDA (add) PHYSICIAN & [address] [address] SPECIMEN INFORMATION: Tissue Source: A - Bone marrow core, B - Bone marrow clot Clinical Info: Chronic anemia, acute renal failure Specimen Number: [id number] A & B CPT code: 77310 x2, 65436 x4 METHODOLOGY: Deparaffinized sections of prefer/formalin-fixed tissue or PAP/DQ stained slides are incubated with monoclonal/polyclonal antibodies/oligonucleotide probes. Localization is made via biotin free immunoperoxidase method. Appropriate controls are performed and reacted as expected. Results on target cell population are indicated in the following table: RESULTS: ANTIBODY / CLONE RESULT Block A CD138 (B-A38) positive [place] (polyclonal) positive * Lambda (polyclonal) positive * Block B CD138 (B-A38) positive [place] (polyclonal) positive * Lambda (polyclonal) positive * * Very high background staining. These tests were developed and their performance characteristics determined by [facility]. They may not have been cleared or approved by the U.S. Food and Drug Administration. The FDA has determined that such clearance or approval is not necessary. INTERPRETATION: A. Bone marrow core: Mild plasmacytosis. See comment. B. Bone marrow clot: Mild plasmacytosis. See comment. HARLEY:huma 12/25/17 Comment: A & B - Definite monoclonality is not seen.
[2017-12-22 05:43] LABS: International Normalized Ratio 1.5; Prothrombin Time (Protime)PT. 18.5 SECONDS (11.7-14.9)
[2017-12-22 05:44] LABS: Partial Thromboplast Time 47.3 Seconds (24.1-36.2)
[2017-12-22 05:50] LABS: Albumin, Serum 1.9 g/dL (3.2-5.0); BUN 60 mg/dL (7-18); BUN/Creat Ratio 16.6 RATIO (10-20); Calcium,Total 7.6 mg/dL (8.5-10.1); Chloride 118 mmol/L (98-107); Creatinine, Serum 3.62 mg/dL (0.70-1.30); EST Glomerular Filtration Rate 18 mL/min (>60); Est Glom Filt Rate - Afr Amer 22 mL/min (>60); Estimated Creatinine Clearance 26.31 ml/min; Glucose 85 mg/dL (74-106); Phosphorus 4.1 mg/dL (2.5-4.9); Potassium 5.7 mmol/L (3.5-5.1); Sodium Level 141 mmol/L (136-145)
--- NOTE | 2017-12-22 08:30 | NM_ITS ---
CLINICAL: 62-year-old male with reported history of aspirin intestinal hemorrhage. LABELED BLOOD POOL GASTROINTESTINAL BLEEDING STUDY COMPARISON: None available FINDINGS: Following the intravenous administration of 25.8 mCi of 99m Tc Ultratag labeled RBCs, image acquisitions of the anterior-abdomen and pelvis for a total of 60 minutes reveal: 1. Static sequential sixty individual 1 minute acquisitions of the anterior abdomen and pelvis demonstrate no evidence of abnormal increased radiopharmaceutical concentration indicative of acute gastrointestinal hemorrhage. 2. Physiologic distribution of the radiopharmaceutical is demonstrated in the hepatic, splenic, cardiac and major vascular blood pool. There is visualization of the external genitalia. NM/GI Bleed Scan IMPRESSION: 1. NEGATIVE 99m Tc ULTRATAG LABELED BLOOD POOL GASTROINTESTINAL BLEEDING EXAMINATION. 2. There is no definitive typical scintigraphic evidence of acute gastrointestinal hemorrhage on the current evaluation. Electronically Signed: Eliseo Santana DO at 10:44 EDT Tel , Service support ,
--- NOTE | 2017-12-22 10:00 | CT_ITS ---
PROCEDURE: CT GUIDED BONE marrow biopsy of the left iliac bone. DATE: December 22, 2017. INDICATION: Male, 62 years old. Possible multiple myeloma. PHYSICIAN: Yosvany Carlos M.D. RADIATION DOSAGE (If Supplied By Facility): CTDIvol = ( 18 ) mGy, DLP = ( 318.27 ) mGycm. Individualized dose optimization techniques were utilized. PROCEDURE: The risks, benefits, and alternatives to the procedure were explained to the patient. The specific risk of hemorrhage requiring further treatment or intervention was detailed and accepted. Follow-up instructions were discussed with the patient as well. Written informed consent was obtained. The patient was brought into the CT suite and placed in the right side down decubitus position.. . An appropriate entry site was identified. The overlying skin was prepped and draped in the usual sterile fashion. 1% lidocaine was administered subcutaneously for local anesthesia. Conscious sedation was performed. The patient received 2 mg of Versed and 50 mcg of fentanyl intravenously. Conscious sedation was started at 10:18 AM and terminated at 10:48 AM. The patient was independently monitored by the department nurse. Under CT guidance, a bone marrow aspiration and biopsy of the left iliac bone was performed. The specimens were then placed in the appropriate fluid and transported to the laboratory for analysis. Hemostasis was obtained. The patient tolerated the procedure well without immediate complications. CT/Biopsy/Inj or Needle Placement IMPRESSION: Successful CT guided bone marrow biopsy and aspirate of the posterior aspect of the left iliac bone., as described above. Electronically Signed: Yosvany Carlos MD at 11:30 EDT Tel [phone], Service support ,
[2017-12-22] MEDS: Magnesium Oxide 400 MG Tablet PO (11:20)
[2017-12-22] MEDS: Multivitamins,Therapeutic Tablet 1 TABLET PO (11:20)
[2017-12-22] MEDS: Pantoprazole Sodium 40 MG Tablet PO (11:20)
[2017-12-22] MEDS: 0.9% Normal Saline 1,000 ML 75 ML IV (11:20)
[2017-12-22] MEDS: 0.9% NaCl Peripheral Flush Adult/Peds IV (11:20)
[2017-12-22] MEDS: Cyanocobalamin 500 MCG Tablet PO (11:21)
[2017-12-22] MEDS: Sodium Polystyrene Sulfonate 15 GM/60 ML UDC 30 GM PO (11:21)
[2017-12-22] MEDS: Metoprolol Tartrate 25 MG Tablet 12.5 MG PO ×2 (11:21→21:43)
[2017-12-22] MEDS: Ascorbic Acid 500 MG Tablet PO (11:21)
[2017-12-22 11:35] LABS: Basophil% 0.3 % (0-1); Differential Indicated SCAN CRITERIA MET; Eosinophils% 0.3 % (0-5); Hematocrit 28.2 % (40-54); Hemoglobin 8.9 g/dl (13.0-16.5); Lymphocyte % 30.5 % (19-41); Mean Corp Hgb Conc 31.6 g/gl (32-36); Mean Corpuscular Hgb 31.4 pg (27.0-32.0); Mean Corpuscular Volume 99.6 fL (80-94); Mean Platelet Vol. 10.1 fl (6.2-12.0); Monocyte% 7.8 % (0-10); Neutrophil # 2.43 X10^3/uL (2.7-7.7); Neutrophil % 61.1 % (47-70); POSITIVE COUNT NO; POSITIVE DIFFERENTIAL NO; POSITIVE MORPHOLOGY YES; Platelet Count 84 K/mm3 (150-450); RBC Distribution Width CV 20.6 % (11.6-14.6); RBC Distribution Width SD 72.4 fl (35.1-43.9); Red Blood Count 2.83 M/mm3 (4.6-6.2)
[2017-12-22 11:36] LABS: Absolute Lymphocyte Count 1.21 X10^3/ul (0.83-4.51); Absolute Neutrophil Count 2.4 X10^3/uL (2.0-7.7); Basophil# 0.01 X10^3/uL; Eosinophil# 0.01 X10^3/uL; Lymphocyte # 1.21 X10^3/ul (4.0); Monocyte# 0.31 X10^3/uL
[2017-12-22 11:37] LABS: Differential Comment SCANNED
[2017-12-22 12:24] LABS: Bone Marrow Aspiraton SEE PATHOLOGY REPORT
--- NOTE | 2017-12-22 13:21 | ONC.PN.INPT ---
- Problem List (1) ARF (acute renal failure) Status: Acute Qualifiers: Acute renal failure type: unspecified Qualified Code(s): N17.9 - Acute kidney failure, unspecified (2) Acute on chronic anemia Status: Acute (3) Hyperglobulinemia Status: Acute (4) Pancytopenia Status: Acute Subjective Date of Service:: 12/22/17 Anemia Mr. 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 He presented to [facility] ED on 12/14/17 subsequent to having blood work for his pcp, Dr. Tapan Cuellar in the ambulatory setting which revealed a Hgb 7.5, BUN 70 and creatinine is 4.12. Stool guaiac positive. Anticoagulation has been held. He underwent an EGD 12/18/17 which was essentially unremarkable and right renal biopsy on 12/18/17 pathology of which is still pending. Has received 5 units of PRBCs this admission and 2 pks platelets. Patient reports chronic fatigue with exertional dyspnea exacerbations. States he takes b12 PO daily and has required intermittent iron infusions in the past, last being 2016. Patient is a good historian and vividly describes previous 3 episodes of GI bleed in the past, 1997, 2014 and 2015. States during those episodes he noted cruz blood and instantly felt dizzy/lightheaded after experiencing hematochezia. Denies melena/hematochezia of late. Specifically denies weight loss, CP, new onset bone pain, abd pain and any other overt episodes of bleeding, although admits he bruises easily. Past family history as listed below. Upon interview, patient denies any outstanding complaints since he was evaluated by me yesterday. Underwent nuc med bleed scan and BMBX earlier today. Right hip tender to the touch but denies pain. Past Medical History: Chronic Problems (Last Reviewed 11/16/17 @ 08:36 by Suzanne Ferris) Nicotine abuse (Chronic) Premature atrial contractions (Chronic) Left ventricular hypertrophy (Chronic) senior living current use of 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 (Chronic) Presence of permanent cardiac pacemaker (Chronic ~05/13/17) Intellikine; Mitral valve insufficiency and aortic valve insufficiency (Chronic) Sick sinus syndrome (Chronic) S/P permanent pacemaker 05/13/2017; S/P aortic valve replacement (Chronic ~05/07/17) 27mm [employer] Richi Tirfecta pericardial valve Aortic stenosis (Chronic) S/P valve replacement with 27mm [employer] Richi Trifecta pericardial valve; Atherosclerotic heart disease of [place] coronary artery without angina pectoris (Chronic) Hyperlipidemia (Chronic) Ventricular hypertrophy (Chronic) Past Medical History - Most Recent Inpatient Visit Past Medical History Start: 12/15/17 00:30 Text: Status: Complete Freq: ONCE Protocol: Document 12/15/17 00:40 MEP (Rec: 12/15/17 00:46 [facility] [id number][place] BMI Required to complete PMH What is Patient's BMI 28.6 Neurologic Medical History Hx Stroke/TIA Yes Hx Dementia/Alzheimer's No Hx Parkinson's Disease No Hx Seizures No Hx Multiple Sclerosis No Hx Migraines No Cardiac Medical History VTE Present on Admission No Hx Hypertension Yes Hx Chest Pain/Angina No Hx Heart Attack No Hx Cardiac Surgery/Stents/Etc. Yes: aortic valve and pacemaker Hx Heart Failure No Hx Pacemaker/AICD Yes Hx Irregular Heartbeat and/or Afib No Hx Anticoagulant Therapy Yes Query Text:(Coumadin, Aspirin, Plavix, Xarelto, etc.) Hx Pain in Legs when Walking/Leg Cramps No Respiratory Medical History Hx COPD No Hx Emphysema No Hx Smoking Yes Smoking Status Current some day smoker Hx Tobacco Use in last 12 months Yes Sent to [facility] Yes Hx Sleep Apnea No Do you snore loudly (louder than talking Yes or can be heard through closed doors)? Do you often feel tired/ fatigued/ Yes sleepy during daytime? Has anyone observed you stop breathing No during sleep? STOP Results Positive GI Medical History Hx Ulcer Yes: GI bleed Hx Hepatitis No Hx Cirrhosis No Hx GI Bleed No Hx Unplanned Weight Loss No Genitourinary Medical History Indwelling Catheter in Place on Arrival/ No Admission Hx Renal Disease No Hx Dialysis No Musculoskeletal History Hx Arthritis No Hx Rheumatoid Arthritis No Endocrine Medical History Hx Diabetes No Hx Thyroid Disease Yes: hypothyroid Hematologic Medical History Hx of Blood Transfusion Yes Hx of Transfusion in last 3 Months No Ever experience any problems with No transfusion(s)? Hx of Preganancy in last 3 Months N/A Nurse Filling Out Transfusion & MPROKOP Questions: Date: 12/15/17 Time: 00:45 Psycho/Social Medical History Hx Depression No Hx Anxiety No Hx Behavior Disorder No Hx Alcohol Use Yes: rare Hx Substance Use No Other Medical History Hx Blood Disorders Yes Hx Anemia Yes Hx Cancer No Hx Drug Resistant Organism No Wound/Pressure Injury Present on Arrival No /Admission Query Text:If yes, chart assessment in Shift/Clinical Findings Central Line/PICC/VAD Present on Arrival No /Admission Risk for Readmission Number of Risk Factors 6 At Risk for Readmission Patient is At Risk For Readmission Patient is eligible for Call Back Y Past Medical History (Last Reviewed 11/16/17 @ 08:36 by Suzanne Ferris) Acute CVA (cerebrovascular accident) (Acute 10/27/17) 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) senior living current use of 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 (Chronic) Atrial fibrillation (Acute) Sinus bradycardia (Acute) Presence of permanent cardiac pacemaker (Chronic ~05/13/17) Mitral valve insufficiency and aortic valve insufficiency (Chronic) Sick sinus syndrome (Chronic) SOB (shortness of breath) (Acute) Aortic stenosis (Chronic) Atherosclerotic heart disease of [place] coronary artery without angina pectoris (Chronic) Atrioventricular block, type I (Acute) Premature ventricular contraction (Acute) Abnormal EKG (Acute) Hyperlipidemia (Chronic) Ventricular hypertrophy (Chronic) Bruit of left carotid artery (Acute) Anemia, iron deficiency (Acute) Hypothyroidism (Acute) Retinal embolus (Acute) Tobacco abuse (Acute) Past Surgical History (Last Reviewed 11/16/17 @ 08:36 by Suzanne Ferris) S/P aortic valve replacement (Chronic ~05/07/17) History of carpal tunnel surgery (Resolved) History of gastric bypass (Resolved) History of knee surgery (Resolved) Maternal Family History: Family History (Last Reviewed 11/16/17 @ 08:36 by Suzanne Ferris) Father CAD (coronary artery disease) Mother CAD (coronary artery disease) Thyroid disorder Sister Thyroid cancer Family History: No pertinent history - Social History Smoking Status: Current some day smoker Review of Systems Constitutional:: Reports: Fatigue. Denies: Fever, Sweats, Weight loss, Appetite change, Chills Cardiovascular:: Reports: Dyspnea on exertion. Denies: Chest pain, Palpitations, Orthopnea, PND, Shortness of breath Respiratory: Denies: Cough, Hemoptysis, Shortness of Breath, Wheezing Gastrointestinal:: Denies: Abdominal pain, Nausea, Vomiting, Diarrhea, Constipation, Melena, Hematochezia Genitourinary: Denies: Dysuria, Flank pain Musculoskeletal:: Denies: Back pain, Myalgia, Arthralgia Skin: Denies: Rash, Skin Changes, Wounds Neurological:: Denies: Headache, Dizziness, Numbness, Tingling, Frequent falls, Visual changes, Tinnitus, Hearing loss Psychiatric: Denies: Anxiety, Depression, Homicidal Ideations, Suicidal Ideations Vital Signs Height 6 ft 4 in Weight: 234 lb 15.992 oz Weight in Pounds 235.0 lbs Pulse Ox 97 Temperature 98.3 F Pulse Rate [6] 65 Pulse Rate [5] 66 Pulse Rate [4] 64 Pulse Rate [3] 65 Pulse Rate [2] 64 Pulse Rate [1 (Initial 63 Baseline)] Pulse Rate [Right Radial] 78 Pulse Rate 61 Respiratory Rate [6] 21 Respiratory Rate [5] 21 Respiratory Rate [4] 21 Respiratory Rate [3] 28 Respiratory Rate [2] 18 Respiratory Rate [1 (Initial 19 Baseline)] Respiratory Rate 18 Blood Pressure [BP] 132/63 Blood Pressure [6] 105/52 Blood Pressure [5] 112/48 Blood Pressure [4] 108/49 Blood Pressure [3] 108/49 Blood Pressure [2] 132/54 Blood Pressure [1 (Initial 136/56 Baseline)] Blood Pressure 131/70 Blood Pressure Position [BP] Semi-Fowlers Blood Pressure Position Semi-Fowlers - Physical Exam General: Alert, Oriented x3, No apparent distress HEENT: Atraumatic, Normocephalic Oropharynx:: Negative for: Dry mucosa, Ulcerated lesions Neck:: Supple, Trachea midline. Negative for: JVD, bilateral Cardiac:: Regular rate, Regular rhythm, Normal S1, Normal S2. Negative for: Murmur Lungs: Clear to auscultation, Excusion symmetrical. Negative for: Rhonchi, Wheezes Abdomen:: Bowel sounds x 4, Soft, Non-tender, Non-distended, - - [place] in place draining tea colored urine with sediment. Negative for: Hepatosplenomegaly Extremities:: Negative for: Cyanosis, Edema Neurological: Neuro grossly intact Skin:: - - Right hip BMBX site covered with bandaid, no bloody drainage. Negative for: Lesions, Rash, Petechiae, Ecchymosis Psychiatric:: Appropriate affect, Euthymic Lymphatics:: Negative for: Cervical lymphadenopathy, Supraclavicular lymphadenopathy, Axillary lymphadenopathy Laboratory Data: Microbiology 12/16/17 05:00 Blood Culture - Final Blood Culture (Wb) - Right Hand No growth in 5 days. 12/16/17 05:00 Blood Culture - Final Blood Culture (Wb) - Anticubital Left No growth in 5 days. Laboratory Tests 12/22/17 12/22/17 12/22/17 Range/Units 05:15 05:15 05:15 WBC 4.0 L Corrected WBC RBC 2.83 L Hgb 8.9 L Hct 28.2 L MCV 99.6 H MCH 31.4 MCHC 31.6 L RDW 20.6 H RDW Differential 72.4 H Plt Count 84 L Cancelled MPV 10.1 Immature Gran % (Auto) 0.000 (0.0-0.9) % Neut % (Auto) 61.1 (47-70) % Lymph % (Auto) 30.5 (19-41) % Rhea % (Auto) 7.8 (0-10) % Eos % (Auto) 0.3 (0-5) % Baso % (Auto) 0.3 (0-1) % Absolute Neuts (auto) 2.4 (2.0-7.7) X10^3/uL Absolute Lymphs (auto) 1.21 (0.83-4.51) X10^3/ul Total Counted Not Reportable Differential Comment SCANNED Diff Path Review Immature Plt Fraction (1.0-7.9) % Retic Count (0.5-1.5) % Immature Retic Fraction (3.00-15.90) % Retic Hgb Equivalent (30-35) pg PT 18.5 H (11.7-14.9) SECONDS INR 1.5 APTT 47.3 H (24.1-36.2) Seconds Sodium (136-145) mmol/L Potassium (3.5-5.1) mmol/L Chloride (98-107) mmol/L Carbon Dioxide (21.0-32.0) mmol/L BUN (7-18) mg/dL Creatinine (0.70-1.30) mg/dL Estim Creat Clear Calc ml/min Est GFR (MDRD) Af Amer (>60) mL/min Est GFR (MDRD) Non-Af (>60) mL/min BUN/Creatinine Ratio (10-20) RATIO Glucose (74-106) mg/dL Calcium (8.5-10.1) mg/dL Phosphorus (2.5-4.9) mg/dL Albumin (3.2-5.0) g/dL Urine Total Protein (Not Estab.) mg/dL Urine Albumin (.) % U Nvhqs-9-Ppsysdsl (.) % U Lrieq-1-Kqocmnho (.) % U Beta Globulin (.) % U Gamma Globulin (.) % U PEP M-Vivek % Ur Immunofix PEP Note (.) PEDRO-1 Antibody SS-A/Ro IgG Antibody SS-B/La IgG Antibody Sm (Pickard) Antibody ANGLE SHEARER Antibody Scl-70 Scleroderma Ab Double Strand DNA Ab Centromere B Antibody 12/22/17 12/22/17 12/21/17 Range/Units 05:15 05:15 05:32 WBC Cancelled Corrected WBC Cancelled RBC Cancelled Hgb Cancelled Hct Cancelled MCV Cancelled MCH Cancelled MCHC Cancelled RDW Cancelled RDW Differential Cancelled Plt Count Cancelled MPV Cancelled Immature Gran % (Auto) (0.0-0.9) % Neut % (Auto) (47-70) % Lymph % (Auto) (19-41) % Rhea % (Auto) (0-10) % Eos % (Auto) (0-5) % Baso % (Auto) (0-1) % Absolute Neuts (auto) (2.0-7.7) X10^3/uL Absolute Lymphs (auto) (0.83-4.51) X10^3/ul Total Counted Differential Comment Cancelled Diff Path Review Cancelled Immature Plt Fraction 4.1 (1.0-7.9) % Retic Count 1.25 (0.5-1.5) % Immature Retic Fraction 3.90 (3.00-15.90) % Retic Hgb Equivalent 31.4 (30-35) pg PT (11.7-14.9) SECONDS INR APTT (24.1-36.2) Seconds Sodium 141 (136-145) mmol/L Potassium 5.7 H (3.5-5.1) mmol/L Chloride 118 H (98-107) mmol/L Carbon Dioxide 17.0 L (21.0-32.0) mmol/L BUN 60 H (7-18) mg/dL Creatinine 3.62 H (0.70-1.30) mg/dL Estim Creat Clear Calc 26.31 ml/min Est GFR (MDRD) Af Amer 22 L (>60) mL/min Est GFR (MDRD) Non-Af 18 L (>60) mL/min BUN/Creatinine Ratio 16.6 (10-20) RATIO Glucose 85 (74-106) mg/dL Calcium 7.6 L (8.5-10.1) mg/dL Phosphorus 4.1 (2.5-4.9) mg/dL Albumin 1.9 L (3.2-5.0) g/dL Urine Total Protein (Not Estab.) mg/dL Urine Albumin (.) % U Cwbmc-2-Vzsfcdct (.) % U Btdvf-6-Rfycnqwa (.) % U Beta Globulin (.) % U Gamma Globulin (.) % U PEP M-Vivek % Ur Immunofix PEP Note (.) PEDRO-1 Antibody SS-A/Ro IgG Antibody SS-B/La IgG Antibody Sm (Pickard) Antibody ANGLE SHEARER Antibody Scl-70 Scleroderma Ab Double Strand DNA Ab Centromere B Antibody 12/16/17 12/16/17 Range/Units 13:30 05:00 WBC Corrected WBC RBC Hgb Hct MCV MCH MCHC RDW RDW Differential Plt Count MPV Immature Gran % (Auto) (0.0-0.9) % Neut % (Auto) (47-70) % Lymph % (Auto) (19-41) % Rhea % (Auto) (0-10) % Eos % (Auto) (0-5) % Baso % (Auto) (0-1) % Absolute Neuts (auto) (2.0-7.7) X10^3/uL Absolute Lymphs (auto) (0.83-4.51) X10^3/ul Total Counted Differential Comment Diff Path Review Immature Plt Fraction (1.0-7.9) % Retic Count (0.5-1.5) % Immature Retic Fraction (3.00-15.90) % Retic Hgb Equivalent (30-35) pg PT (11.7-14.9) SECONDS INR APTT (24.1-36.2) Seconds Sodium (136-145) mmol/L Potassium (3.5-5.1) mmol/L Chloride (98-107) mmol/L Carbon Dioxide (21.0-32.0) mmol/L BUN (7-18) mg/dL Creatinine (0.70-1.30) mg/dL Estim Creat Clear Calc ml/min Est GFR (MDRD) Af Amer (>60) mL/min Est GFR (MDRD) Non-Af (>60) mL/min BUN/Creatinine Ratio (10-20) RATIO Glucose (74-106) mg/dL Calcium (8.5-10.1) mg/dL Phosphorus (2.5-4.9) mg/dL Albumin (3.2-5.0) g/dL Urine Total Protein 101.6 (Not Estab.) mg/dL Urine Albumin 32.3 (.) % U Iggfq-4-Ljrakdim 2.5 (.) % U Rzpkm-2-Evelzueb 7.7 (.) % U Beta Globulin 15.0 (.) % U Gamma Globulin 42.4 (.) % U PEP M-Vivek % Ur Immunofix PEP Note Comment (.) PEDRO-1 Antibody Not Reportable SS-A/Ro IgG Antibody Not Reportable SS-B/La IgG Antibody Not Reportable Sm (Pickard) Antibody Not Reportable ANGLE SHEARER Antibody Not Reportable Scl-70 Scleroderma Ab Not Reportable Double Strand DNA Ab Not Reportable Centromere B Antibody Not Reportable Diagnostic Data: Diagnostic Data Renal Ultrasound 12/15/17 09:28 IMPRESSION: 1. Normal ultrasound of the kidneys. 2. The urinary bladder is not visualized. 3. Incidental note of gallstones and mild pericholecystic fluid. The gallbladder is partially contracted, precluding accurate evaluation of mural thickness. Acute cholecystitis is not excluded by this study, however. 4. Fatty infiltration of the liver. Electronically Signed: Christ Vela MD at 16:09 EDT , Service support , Chest X-Ray 12/16/17 09:16 IMPRESSION: Residual bibasilar infiltrates worse on the right side with the blunting of both costophrenic angles worse on the right side Electronically Signed: Yosvany Carlos MD at 11:10 EDT Tel [phone], Service support , Videofluoroscopic Swallow 12/17/17 13:30 IMPRESSION: Penetration and silent aspiration with ingestion of thin liquids. This improves with the chin tuck maneuver. The swallow study findings were discussed with the patient by the speech pathologist at the conclusion of the examination. Please see speech pathology report for more information and recommendations. Electronically Signed: Yosvany Carlos MD at 14:19 EDT Tel [phone], Service support , GI Bleed Scan Nuclear Medicine 12/22/17 08:30 IMPRESSION: 1. NEGATIVE 99m Tc ULTRATAG LABELED BLOOD POOL GASTROINTESTINAL BLEEDING EXAMINATION. 2. There is no definitive typical scintigraphic evidence of acute gastrointestinal hemorrhage on the current evaluation. Electronically Signed: Eliseo Santana DO at 10:44 EDT Tel , Service support , Biopsy CT 12/22/17 10:00 IMPRESSION: Successful CT guided bone marrow biopsy and aspirate of the posterior aspect of the left iliac bone., as described above. Electronically Signed: Yosvany Carlos MD at 11:30 EDT Tel [phone], Service support , Assessment and Plan 1. Acute on chronic anemia - PMH positive for several incidences of upper GI bleed and iron deficiency associated with malabsorption r/t gastric bypass as well as B12 deficiency. Stool positive for occult blood, although false positives have been associated with vitamin C administration. Status post 5 units PRBCs. EGD under the care of Dr. Sanabria on 12/18/2017 and colonoscopy 12/21/17 did not identify a source of bleeding. Nuc med bleed scan negative. Retic count is not elevated as should be as a compensatory mechanism. Globulin level elevated, hypoalbuminemia present. Corrected calcium 9.22. Differentials include a plasma cell dyscrasia. Serum protein electrophoresis with immunofixation, serum free light chain assay, urine immunofixation electrophoresis are still pending. Bone marrow biopsy with cytogenetics, flow cytometry and FISH myeloma and MDS panel was obtained earlier this morning. Marrow aspirate smear slides reviewed by Dr. Rizvi and pathology- at initial view non diagnostic thus must await final report. 2. Pancytopenia-as evidenced by platelet count of 84,000 and WBC 4. S/p platelet transfusion X2. Orders placed for MDS panel on BMBX specimen. 3. Acute kidney injury, unclear etiology- Right renal biopsy 12/18/17. Pathology pending. Nephrology involved. From a hematologic perspective, must await results of BMBX, renal biopsy and SPEP. May follow up in clinic in 1 week if able as results will be available to review in detail at that time. Case discussed with Dr. Rizvi. Vera Stanton, MSN, INSEMINATOR-C, AOCNP Medications: Medications Added to Medication List This Visit Category Date Time Status Ensure Clear Med 12/22/17 14:00 Active 120 ml PO 4X/DAY Primary Care Provider: Tapan Cuellar DO Referring Provider:
--- NOTE | 2017-12-22 13:26 | PN_ITS ---
- Problem List (1) ARF (acute renal failure) Status: Acute Qualifiers: Acute renal failure type: unspecified Qualified Code(s): N17.9 - Acute kidney failure, unspecified (2) Acute on chronic anemia Status: Acute (3) Hyperglobulinemia Status: Acute (4) Pancytopenia Status: Acute Subjective Date of Service:: 12/22/17 Anemia Mr. 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 He presented to [facility] ED on 12/14/17 subsequent to having blood work for his pcp, Dr. Tapan Cuellar in the ambulatory setting which revealed a Hgb 7.5, BUN 70 and creatinine is 4.12. Stool guaiac positive. Anticoagulation has been held. He underwent an EGD 12/18/17 which was essentially unremarkable and right renal biopsy on 12/18/17 pathology of which is still pending. Has received 5 units of PRBCs this admission and 2 pks platelets. Patient reports chronic fatigue with exertional dyspnea e xacerbations. States he takes b12 PO daily and has required intermittent iron infusions in the past, last being 2016. Patient is a good historian and vividly describes previous 3 episodes of GI bleed in the past, 1997, 2014 and 2015. States during those episodes he noted cruz blood and instantly felt dizzy/lightheaded after experiencing hematochezia. Denies melena/hematochezia of late. Specifically denies weight loss, CP, new onset bone pain, abd pain and any other overt episodes of bleeding, although admits he bruises easily. Past family history as listed below. Upon interview, patient denies any outstanding complaints since he was evaluated by me yesterday. Underwent nuc med bleed scan and BMBX earlier today. Right hip tender to the touch but denies pain. 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 Richi Tirfecta pericardial valve Aortic stenosis (Chronic) S/P valve replacement with 27mm [employer] 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) Hyperlipidemia (Chronic) Ventricular hypertrophy (Chronic) Past Medical History - Most Recent Inpatient Visit Past Medical History Start: 12/15/17 00:30 Text: Status: Complete Freq: ONCE Protocol: Document 12/15/17 00:40 MEP (Rec: 12/15/17 00:46 [facility] [id number]) BMI Required to complete PMH What is Patient's BMI 28.6 Neurologic Medical History Hx Stroke/TIA Yes Hx Dementia/Alzheimer's No Hx Parkinson's Disease No Hx Seizures No Hx Multiple Sclerosis No Hx Migraines No Cardiac Medical History VTE Present on Admission No Hx Hypertension Yes Hx Chest Pain/Angina No Hx Heart Attack No Hx Cardiac Surgery/Stents/Etc. Yes: aortic valve and pacemaker Hx Heart Failure No Hx Pacemaker/AICD Yes Hx Irregular Heartbeat and/or Afib No Hx Anticoagulant Therapy Yes Query Text:(Coumadin, Aspirin, Plavix, Xarelto, etc.) Hx Pain in Legs when Walking/Leg Cramps No Respiratory Medical History Hx COPD No Hx Emphysema No Hx Smoking Yes Smoking Status Current some day smoker Hx Tobacco Use in last 12 months Yes Sent to [facility] Yes Hx Sleep Apnea No Do you snore loudly (louder than talking Yes or can be heard through closed doors)? Do you often feel tired/ fatigued/ Yes sleepy during daytime? Has anyone observed you stop breathing No during sleep? STOP Results Positive GI Medical History Hx Ulcer Yes: GI bleed Hx Hepatitis No Hx Cirrhosis No Hx GI Bleed No Hx Unplanned Weight Loss No Genitourinary Medical History Indwelling Catheter in Place on Arrival/ No Admission Hx Renal Disease No Hx Dialysis No Musculoskeletal History Hx Arthritis No Hx Rheumatoid Arthritis No Endocrine Medical History Hx Diabetes No Hx Thyroid Disease Yes: hypothyroid Hematologic Medical History Hx of Blood Transfusion Yes Hx of Transfusion in last 3 Months No Ever experience any problems with No transfusion(s)? Hx of Preganancy in last 3 Months N/A Nurse Filling Out Transfusion & MPROKOP Questions: Date: 12/15/17 Time: 00:45 Psycho/Social Medical History Hx Depression No Hx Anxiety No Hx Behavior Disorder No Hx Alcohol Use Yes: rare Hx Substance Use No Other Medical History Hx Blood Disorders Yes Hx Anemia Yes Hx Cancer No Hx Drug Resistant Organism No Wound/Pressure Injury Present on Arrival No /Admission Query Text:If yes, chart assessment in Shift/Clinical Findings Central Line/PICC/VAD Present on Arrival No /Admission Risk for Readmission Number of Risk Factors 6 At Risk for Readmission Patient is At Risk For Readmission Patient is eligible for Call Back Y Past Medical History (Last Reviewed 11/16/17 @ 08:36 by Suzanne Ferris) Acute CVA (cerebrovascular accident) (Acute 10/27/17) 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) MCC current use of 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 (Chronic) Atrial fibrillation (Acute) Sinus bradycardia (Acute) Presence of permanent cardiac pacemaker (Chronic ~05/13/17) Mitral valve insufficiency and aortic valve insufficiency (Chronic) Sick sinus syndrome (Chronic) SOB (shortness of breath) (Acute) Aortic stenosis (Chronic) 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) Atrioventricular block, type I (Acute) Premature ventricular contraction (Acute) Abnormal EKG (Acute) Hyperlipidemia (Chronic) Ventricular hypertrophy (Chronic) Bruit of left carotid artery (Acute) Anemia, iron deficiency (Acute) Hypothyroidism (Acute) Retinal embolus (Acute) Tobacco abuse (Acute) Past Surgical History (Last Reviewed 11/16/17 @ 08:36 by Suzanne Ferris) S/P aortic valve replacement (Chronic ~05/07/17) History of carpal tunnel surgery (Resolved) History of gastric bypass (Resolved) History of knee surgery (Resolved) Maternal Family History: Family History (Last Reviewed 11/16/17 @ 08:36 by Suzanne Ferris) Father CAD (coronary artery disease) Mother CAD (coronary artery disease) Thyroid disorder Sister Thyroid cancer Family History: No pertinent history - Social History Smoking Status: Current some day smoker Review of Systems Constitutional:: Reports: Fatigue. Denies: Fever, Sweats, Weight loss, Appetite change, Chills Cardiovascular:: Reports: Dyspnea on exertion. Denies: Chest pain, Palpitations, Orthopnea, PND, Shortness of breath Respiratory: Denies: Cough, Hemoptysis, Shortness of Breath, Wheezing Gastrointestinal:: Denies: Abdominal pain, Nausea, Vomiting, Diarrhea, C onstipation, Melena, Hematochezia Genitourinary: Denies: Dysuria, Flank pain Musculoskeletal:: Denies: Back pain, Myalgia, Arthralgia Skin: Denies: Rash, Skin Changes, Wounds Neurological:: Denies: Headache, Dizziness, Numbness, Tingling, Frequent falls, Visual changes, Tinnitus, Hearing loss Psychiatric: Denies: Anxiety, Depression, Homicidal Ideations, Suicidal Ideations Vital Signs Height 6 ft 4 in Weight: 234 lb 15.992 oz Weight in Pounds 235.0 lbs Pulse Ox 97 Temperature 98.3 F Pulse Rate [6] 65 Pulse Rate [5] 66 Pulse Rate [4] 64 Pulse Rate [3] 65 Pulse Rate [2] 64 Pulse Rate [1 (Initial 63 Baseline)] Pulse Rate [Right Radial] 78 Pulse Rate 61 Respiratory Rate [6] 21 Respiratory Rate [5] 21 Respiratory Rate [4] 21 Respiratory Rate [3] 28 Respiratory Rate [2] 18 Respiratory Rate [1 (Initial 19 Baseline)] Respiratory Rate 18 Blood Pressure [BP] 132/63 Blood Pressure [6] 105/52 Blood Pressure [5] 112/48 Blood Pressure [4] 108/49 Blood Pressure [3] 108/49 Blood Pressure [2] 132/54 Blood Pressure [1 (Initial 136/56 Baseline)] Blood Pressure 131/70 Blood Pressure Position [BP] Semi-Fowlers Blood Pressure Position Semi-Fowlers - Physical Exam General: Alert, Oriented x3, No apparent distress HEENT: Atraumatic, Normocephalic Oropharynx:: Negative for: Dry mucosa, Ulcerated lesions Neck:: Supple, Trachea midline. Negative for: JVD, bilateral Cardiac:: Regular rate, Regular rhythm, Normal S1, Normal S2. Negative for: Murmur Lungs: Clear to auscultation, Excusion symmetrical. Negative for: Rhonchi, Wheezes Abdomen:: Bowel sounds x 4, Soft, Non-tender, Non-distended, - - [place] in place draining tea colored urine with sediment. Negative for: Hepatosplenomegaly Extremities:: Negative for: Cyanosis, Edema Neurological: Neuro grossly intact Skin:: - - Right hip BMBX site covered with bandaid, no bloody drainage. Negative for: Lesions, Rash, Petechiae, Ecchymosis Psychiatric:: Appropriate affect, Euthymic Lymphatics:: Negative for: Cervical lymphadenopathy, Supraclavicular lymphadenopathy, Axillary lymphadenopathy Laboratory Data: Microbiology 12/16/17 05:00 Blood Culture - Final Blood Culture (Wb) - Right Hand No growth in 5 days. 12/16/17 05:00 Blood Culture - Final Blood Culture (Wb) - Anticubital Left No growth in 5 days. Laboratory Tests 12/22/17 12/22/17 12/22/17 Range/Units 05:15 05:15 05:15 WBC 4.0 L Corrected WBC RBC 2.83 L Hgb 8.9 L Hct 28.2 L MCV 99.6 H MCH 31.4 MCHC 31.6 L RDW 20.6 H RDW Differential 72.4 H Plt Count 84 L Cancelled MPV 10.1 Immature Gran % (Auto) 0.000 (0.0-0.9) % Neut % (Auto) 61.1 (47-70) % Lymph % (Auto) 30.5 (19-41) % [place] % (Auto) 7.8 (0-10) % Eos % (Auto) 0.3 (0-5) % Baso % (Auto) 0.3 (0-1) % Absolute Neuts (auto) 2.4 (2.0-7.7) X10^3/uL Absolute Lymphs (auto) 1.21 (0.83-4.51) X10^3/ul Total Counted Not Reportable Differential Comment SCANNED Diff Path Review Immature Plt Fraction (1.0-7.9) % Retic Count (0.5-1.5) % Immature Retic Fraction (3.00-15.90) % Retic Hgb Equivalent (30-35) pg PT 18.5 H (11.7-14.9) SECONDS INR 1.5 APTT 47.3 H (24.1-36.2) Seconds Sodium (136-145) mmol/L Potassium (3.5-5.1) mmol/L Chloride (98-107) mmol/L Carbon Dioxide (21.0-32.0) mmol/L BUN (7-18) mg/dL Creatinine (0.70-1.30) mg/dL Estim Creat Clear Calc ml/min Est GFR (MDRD) Af Amer (>60) mL/min Est GFR (MDRD) Non-Af (>60) mL/min BUN/Creatinine Ratio (10-20) RATIO Glucose (74-106) mg/dL Calcium (8.5-10.1) mg/dL Phosphorus (2.5-4.9) mg/dL Albumin (3.2-5.0) g/dL Urine Total Protein (Not Estab.) mg/dL Urine Albumin (.) % U Whbjc-6-Jbhoygrv (.) % U Lvyxw-9-Mvrcykck (.) % U Beta Globulin (.) % U Gamma Globulin (.) % U PEP M-Vivek % Ur Immunofix PEP Note (.) PEDRO-1 Antibody SS-A/Ro IgG Antibody SS-B/La IgG Antibody Sm ([place]) Antibody VARNISH BLENDER Antibody Scl-70 Scleroderma Ab Double Strand DNA Ab Centromere B Antibody 12/22/17 12/22/17 12/21/17 Range/Units 05:15 05:15 05:32 WBC Cancelled Corrected WBC Cancelled RBC Cancelled Hgb Cancelled Hct Cancelled MCV Cancelled MCH Cancelled MCHC Cancelled RDW Cancelled RDW Differential Cancelled Plt Count Cancelled MPV Cancelled Immature Gran % (Auto) (0.0-0.9) % Neut % (Auto) (47-70) % Lymph % (Auto) (19-41) % [place] % (Auto) (0-10) % Eos % (Auto) (0-5) % Baso % (Auto) (0-1) % Absolute Neuts (auto) (2.0-7.7) X10^3/uL Absolute Lymphs (auto) (0.83-4.51) X10^3/ul Total Counted Differential Comment Cancelled Diff Path Review Cancelled Immature Plt Fraction 4.1 (1.0-7.9) % Retic Count 1.25 (0.5-1.5) % Immature Retic Fraction 3.90 (3.00-15.90) % Retic Hgb Equivalent 31.4 (30-35) pg PT (11.7-14.9) SECONDS INR APTT (24.1-36.2) Seconds Sodium 141 (136-145) mmol/L Potassium 5.7 H (3.5-5.1) mmol/L Chloride 118 H (98-107) mmol/L Carbon Dioxide 17.0 L (21.0-32.0) mmol/L BUN 60 H (7-18) mg/dL Creatinine 3.62 H (0.70-1.30) mg/dL Estim Creat Clear Calc 26.31 ml/min Est GFR (MDRD) Af Amer 22 L (>60) mL/min Est GFR (MDRD) Non-Af 18 L (>60) mL/min BUN/Creatinine Ratio 16.6 (10-20) RATIO Glucose 85 (74-106) mg/dL Calcium 7.6 L (8.5-10.1) mg/dL Phosphorus 4.1 (2.5-4.9) mg/dL Albumin 1.9 L (3.2-5.0) g/dL Urine Total Protein (Not Estab.) mg/dL Urine Albumin (.) % U Jnpyr-6-Xcvwpwjk (.) % U Hdvbk-7-Hlcjdsmk (.) % U Beta Globulin (.) % U Gamma Globulin (.) % U PEP M-Vivek % Ur Immunofix PEP Note (.) PEDRO-1 Antibody SS-A/Ro IgG Antibody SS-B/La IgG Antibody Sm ([place]) Antibody VARNISH BLENDER Antibody Scl-70 Scleroderma Ab Double Strand DNA Ab Centromere B Antibody 12/16/17 12/16/17 Range/Units 13:30 05:00 WBC Corrected WBC RBC Hgb Hct MCV MCH MCHC RDW RDW Differential Plt Count MPV Immature Gran % (Auto) (0.0-0.9) % Neut % (Auto) (47-70) % Lymph % (Auto) (19-41) % [place] % (Auto) (0-10) % Eos % (Auto) (0-5) % Baso % (Auto) (0-1) % Absolute Neuts (auto) (2.0-7.7) X10^3/uL Absolute Lymphs (auto) (0.83-4.51) X10^3/ul Total Counted Differential Comment Diff Path Review Immature Plt Fraction (1.0-7.9) % Retic Count (0.5-1.5) % Immature Retic Fraction (3.00-15.90) % Retic Hgb Equivalent (30-35) pg PT (11.7-14.9) SECONDS INR APTT (24.1-36.2) Seconds Sodium (136-145) mmol/L Potassium (3.5-5.1) mmol/L Chloride (98-107) mmol/L Carbon Dioxide (21.0-32.0) mmol/L BUN (7-18) mg/dL Creatinine (0.70-1.30) mg/dL Estim Creat Clear Calc ml/min Est GFR (MDRD) Af Amer (>60) mL/min Est GFR (MDRD) Non-Af (>60) mL/min BUN/Creatinine Ratio (10-20) RATIO Glucose (74-106) mg/dL Calcium (8.5-10.1) mg/dL Phosphorus (2.5-4.9) mg/dL Albumin (3.2-5.0) g/dL Urine Total Protein 101.6 (Not Estab.) mg/dL Urine Albumin 32.3 (.) % U Fejkt-9-Ijkthzys 2.5 (.) % U Pgxku-6-Afnvzgfq 7.7 (.) % U Beta Globulin 15.0 (.) % U Gamma Globulin 42.4 (.) % U PEP M-Vivek % Ur Immunofix PEP Note Comment (.) PEDRO-1 Antibody Not Reportable SS-A/Ro IgG Antibody Not Reportable SS-B/La IgG Antibody Not Reportable Sm ([place]) Antibody Not Reportable VARNISH BLENDER Antibody Not Reportable Scl-70 Scleroderma Ab Not Reportable Double Strand DNA Ab Not Reportable Centromere B Antibody Not Reportable Diagnostic Data: Diagnostic Data Renal Ultrasound 12/15/17 09:28 IMPRESSION: 1. Normal ultrasound of the kidneys. 2. The urinary bladder is not visualized. 3. Incidental note of gallstones and mild pericholecystic fluid. The gallbladder is partially contracted, precluding accurate evaluation of mural thickness. Acute cholecystitis is not excluded by this study, however. 4. Fatty infiltration of the liver. Electronically Signed: Christ Vela MD at 16:09 EDT , Service support , Chest X-Ray 12/16/17 09:16 IMPRESSION: Residual bibasilar infiltrates worse on the right side with the blunting of both costophrenic angles worse on the right side Electronically Signed: Yosvany Carlos MD at 11:10 EDT Tel [phone], Service support , Videofluoroscopic Swallow 12/17/17 13:30 IMPRESSION: Penetration and silent aspiration with ingestion of thin liquids. This improves with the chin tuck maneuver. The swallow study findings were discussed with the patient by the speech pathologist at the conclusion of the examination. Please see speech pathology report for more information and recommendations. Electronically Signed: Yosvany Carlos MD at 14:19 EDT Tel [phone], Service support , GI Bleed Scan Nuclear Medicine 12/22/17 08:30 IMPRESSION: 1. NEGATIVE 99m Tc ULTRATAG LABELED BLOOD POOL GASTROINTESTINAL BLEEDING EXAMINATION. 2. There is no definitive typical scintigraphic evidence of acute gastrointestinal hemorrhage on the current evaluation. Electronically Signed: Eliseo Santana DO at 10:44 EDT Tel , Service support , Biopsy CT 12/22/17 10:00 IMPRESSION: Successful CT guided bone marrow biopsy and aspirate of the posterior aspect of the left iliac bone., as described above. Electronically Signed: Yosvany Carlos MD at 11:30 EDT Tel [phone], Service support , Assessment and Plan 1. Acute on chronic anemia - PMH positive for several incidences of upper GI bleed and iron deficiency associated with malabsorption r/t gastric bypass as well as B12 deficiency. Stool positive for occult blood, although false positives have been associated with vitamin C administration. Status post 5 units PRBCs. EGD under the care of Dr. Sanabria on 12/18/2017 and colonoscopy 12/21/17 did not identify a source of bleeding. Nuc med bleed scan negative. Retic count is not elevated as should be as a compensatory mechanism. Globulin level elevated, hypoalbuminemia present. Corrected calcium 9.22. Differentials include a plasma cell dyscrasia. Serum protein electrophoresis with immunofixation, serum free light chain assay, urine immunofixation electrophoresis are still pending. Bone marrow biopsy with cytogenetics, flow cytometry and FISH myeloma and MDS panel was obtained earlier this morning. Marrow aspirate smear slides reviewed by Dr. Rizvi and pathology- at initial view non diagnostic thus must await final report. 2. Pancytopenia-as evidenced by platelet count of 84,000 and WBC 4. S/p platelet transfusion X2. Orders placed for MDS panel on BMBX specimen. 3. Acute kidney injury, unclear etiology- Right renal biopsy 12/18/17. Pathology pending. Nephrology involved. From a hematologic perspective, must await results of BMBX, renal biopsy and SPEP. May follow up in clinic in 1 week if able as results will be available to review in detail at that time. Case discussed with Dr. Rizvi. Vera Stanton, MSN, CRITICAL CARE PHYSICIAN-C, AOCNP Medications: Medications Added to Medication List This Visit Category Date Time Status Ensure Clear Med 12/22/17 14:00 Active 120 ml PO 4X/DAY Primary Care Provider: Tapan Cuellar DO Referring Provider:
[2017-12-22] MEDS: hydrALAZINE 25 MG Tablet PO ×2 (14:23→21:44)
--- NOTE | 2017-12-22 14:46 | PCM.PROGNOTE ---
<Neida Fischer - Last Filed: 12/22/17 14:57> Patient Problems: Active and Suspected Problems (Last Reviewed 11/16/17 @ 08:36 by Suzanne Ferris) Acute on chronic anemia (Acute) Hyperglobulinemia (Acute) Pancytopenia (Acute) ARF (acute renal failure) (Acute) Subjective: Patient seen and examined. Status post RBC scan and bone marrow biopsy today. Denies current complaints. - Physical Exam General: Alert, Oriented x3, Cooperative, No apparent distress HEENT: Atraumatic, PERRLA, EOMI, Normocephalic Neck: Supple, No JVD, Negative Carotid Bruits Lungs: Clear to auscultation, Normal air movement Cardiovascular: Regular rate, Regular Rhythm, Normal S1, Normal S2, No murmurs Abdomen: Bowel Sounds Present, Soft, Non Tender, Non-Distended Extremities: No clubbing, No cyanosis, No edema, Capillary Refill Less than 3 Seconds Skin: No rashes, No breakdown Musculoskeletal: No Tenderness to Palpation of Joints or Extremities Neurological: Cranial nerves II-XII grossly intact, Neuro grossly intact Psych/Mental Status: Normal Affect, Appropriate Vital Signs Temp Pulse Resp BP Pulse Ox 98.3 F 64 18 144/66 H 96 12/22/17 14:25 12/22/17 14:25 12/22/17 14:25 12/22/17 14:25 12/22/17 14:25 Oxygen Flow Rate (L/min) [6] 4 Oxygen Flow Rate (L/min) [5] 4 Oxygen Flow Rate (L/min) [4] 4 Oxygen Flow Rate (L/min) [3] 4 Oxygen Flow Rate (L/min) [2] 4 Oxygen Flow Rate (L/min) [1 ( 2 Initial Baseline)] Oxygen Flow Rate (L/min) 2 Oxygen Delivery Method [6] Nasal Cannula Oxygen Delivery Method [5] Nasal Cannula Oxygen Delivery Method [4] Nasal Cannula Oxygen Delivery Method [3] Nasal Cannula Oxygen Delivery Method [2] Nasal Cannula Oxygen Delivery Method [1 ( Nasal Cannula Initial Baseline)] Oxygen Delivery Method Room Air Weight: 234 lb 15.992 oz Body Mass Index (BMI) 28.5 Finger Stick Blood Glucose 82 Intake and Output for Last 24 Hours 12/20/17 12/21/17 12/22/17 23:59 23:59 23:59 Intake Total 4421 / 4421 2668 / 2668 407 / 407 Output Total 1500 / 1500 975 / 975 325 / 325 Balance 2921 / 2921 1693 / 1693 82 / 82 Microbiology Past 72 Hours 12/16/17 05:00 Blood Culture - Final Blood Culture (Wb) - Right Hand No growth in 5 days. 12/16/17 05:00 Blood Culture - Final Blood Culture (Wb) - Anticubital Left No growth in 5 days. Laboratory Tests Past 24 Hrs 12/16/17 12/16/17 12/21/17 05:00 13:30 05:32 WBC Corrected WBC RBC Hgb Hct MCV MCH MCHC RDW RDW Differential Plt Count MPV Immature Gran % (Auto) Neut % (Auto) Lymph % (Auto) [place] % (Auto) Eos % (Auto) Baso % (Auto) Absolute Neuts (auto) Absolute Lymphs (auto) Total Counted Differential Comment Diff Path Review Immature Plt Fraction 4.1 Retic Count 1.25 Immature Retic Fraction 3.90 Retic Hgb Equivalent 31.4 PT INR APTT Sodium Potassium Chloride Carbon Dioxide BUN Creatinine Estim Creat Clear Calc Est GFR (MDRD) Af Amer Est GFR (MDRD) Non-Af BUN/Creatinine Ratio Glucose Calcium Phosphorus Albumin Urine Total Protein 101.6 Urine Albumin 32.3 U Idpop-1-Kdacinxi 2.5 U Hfevw-9-Peqzrbzn 7.7 U Beta Globulin 15.0 U Gamma Globulin 42.4 U PEP M-Vivek BM Aspirate Exam Ur Immunofix PEP Note Comment PEDRO-1 Antibody Not Reportable SS-A/Ro IgG Antibody Not Reportable SS-B/La IgG Antibody Not Reportable Sm (Pickard) Antibody Not Reportable DOUBLE END SEWER Antibody Not Reportable Scl-70 Scleroderma Ab Not Reportable Double Strand DNA Ab Not Reportable Centromere B Antibody Not Reportable 12/22/17 12/22/17 12/22/17 05:15 05:15 05:15 WBC Cancelled Corrected WBC Cancelled RBC Cancelled Hgb Cancelled Hct Cancelled MCV Cancelled MCH Cancelled MCHC Cancelled RDW Cancelled RDW Differential Cancelled Plt Count Cancelled Cancelled MPV Cancelled Immature Gran % (Auto) Neut % (Auto) Lymph % (Auto) [place] % (Auto) Eos % (Auto) Baso % (Auto) Absolute Neuts (auto) Absolute Lymphs (auto) Total Counted Differential Comment Cancelled Diff Path Review Cancelled Immature Plt Fraction Retic Count Immature Retic Fraction Retic Hgb Equivalent PT INR APTT Sodium 141 Potassium 5.7 H Chloride 118 H Carbon Dioxide 17.0 L BUN 60 H Creatinine 3.62 H Estim Creat Clear Calc 26.31 Est GFR (MDRD) Af Amer 22 L Est GFR (MDRD) Non-Af 18 L BUN/Creatinine Ratio 16.6 Glucose 85 Calcium 7.6 L Phosphorus 4.1 Albumin 1.9 L Urine Total Protein Urine Albumin U Kswnp-6-Qqahnjck U Hldxt-6-Hypgtmxt U Beta Globulin U Gamma Globulin U PEP M-Vivek BM Aspirate Exam Ur Immunofix PEP Note PEDRO-1 Antibody SS-A/Ro IgG Antibody SS-B/La IgG Antibody Sm (Pickard) Antibody DOUBLE END SEWER Antibody Scl-70 Scleroderma Ab Double Strand DNA Ab Centromere B Antibody 12/22/17 12/22/17 12/22/17 05:15 05:15 12:23 WBC 4.0 L Corrected WBC RBC 2.83 L Hgb 8.9 L Hct 28.2 L MCV 99.6 H MCH 31.4 MCHC 31.6 L RDW 20.6 H RDW Differential 72.4 H Plt Count 84 L MPV 10.1 Immature Gran % (Auto) 0.000 Neut % (Auto) 61.1 Lymph % (Auto) 30.5 [place] % (Auto) 7.8 Eos % (Auto) 0.3 Baso % (Auto) 0.3 Absolute Neuts (auto) 2.4 Absolute Lymphs (auto) 1.21 Total Counted Not Reportable Differential Comment SCANNED Diff Path Review Immature Plt Fraction Retic Count Immature Retic Fraction Retic Hgb Equivalent PT 18.5 H INR 1.5 APTT 47.3 H Sodium Potassium Chloride Carbon Dioxide BUN Creatinine Estim Creat Clear Calc Est GFR (MDRD) Af Amer Est GFR (MDRD) Non-Af BUN/Creatinine Ratio Glucose Calcium Phosphorus Albumin Urine Total Protein Urine Albumin U Cuofq-8-Egtmfmwm U Rfihu-2-Czqaoavn U Beta Globulin U Gamma Globulin U PEP M-Vivek BM Aspirate Exam Pending Ur Immunofix PEP Note PEDRO-1 Antibody SS-A/Ro IgG Antibody SS-B/La IgG Antibody Sm (Pickard) Antibody DOUBLE END SEWER Antibody Scl-70 Scleroderma Ab Double Strand DNA Ab Centromere B Antibody Medical Necessity - Tobacco Use Smoking Status: Current some day smoker Assessment/Plan All Active Problems (Last Reviewed 11/16/17 @ 08:36 by Suzanne Ferris) Acute on chronic anemia (Acute) Hyperglobulinemia (Acute) Pancytopenia (Acute) GI bleed (Acute) ARF (acute renal failure) (Acute) Acute CVA (cerebrovascular accident) (Acute 10/27/17) 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) Atrial fibrillation (Acute) Sinus bradycardia (Acute) SOB (shortness of breath) (Acute) Atrioventricular block, type I (Acute) Premature ventricular contraction (Acute) Abnormal EKG (Acute) Bruit of left carotid artery (Acute) 1. Acute anemia on chronic iron deficiency anemia-History of upper GI bleed. Stool + OB. Status post 5 units PRBC. Plt X2. Continue PPI twice daily. Continue to hold anticoagulation. EGD with Dr. Sanabria 12/18/2017 with no source of bleeding. Colonoscopy showed no bleeding source as well. Trend CBC. Hematology following. Patient underwent RBC scan today which was negative. Bone marrow biopsy completed and results pending. Hematology suspecting possible multiple myeloma? Further workup pending. 2. Acute kidney injury, unclear etiology-nephrology involved. Kidney biopsy results pending. [place] in place. Continue gentle hydration. Serologies pending. 3. Hyperkalemia-secondary to #2. Kayexalate x1 today. Trend BMP. 4. History of CVA with residual dysphagia-ST evaluation. Patient denies cough, fever/chills. No leukocytosis. Pneumonia initially suspected on admission due to chest x-ray which showed bibasilar infiltrates, worse on the right side. Patient has had intermittent low-grade fever. Urine for strep and Legionella negative. Sputum culture shows strep C. PNA ruled out. Continue dietary modifications per speech therapy recommendations. 5. Thrombocytopenia-trend CBC. Plt given X2. 6. CAD s/p CABG-continue statin, metoprolol. Aspirin and Eliquis on hold. 7. Status post aortic valve replacement 8. Sick sinus syndrome status post pacemaker 9. Paroxysmal atrial fibrillation-continue metoprolol. Eliquis on hold secondary to #1. 10. Hypothyroidism-continue Synthroid. DVT prophylaxis-SCDs. This patient was seen by FAYE Mathew under the supervision of Dr. Raines. <Loki Raines - Last Filed: 12/22/17 15:06> - Physical Exam Vital Signs Temp Pulse Resp BP Pulse Ox 98.3 F 64 18 144/66 H 96 12/22/17 14:25 12/22/17 14:25 12/22/17 14:25 12/22/17 14:25 12/22/17 14:25 Oxygen Flow Rate (L/min) [6] 4 Oxygen Flow Rate (L/min) [5] 4 Oxygen Flow Rate (L/min) [4] 4 Oxygen Flow Rate (L/min) [3] 4 Oxygen Flow Rate (L/min) [2] 4 Oxygen Flow Rate (L/min) [1 ( 2 Initial Baseline)] Oxygen Flow Rate (L/min) 2 Oxygen Delivery Method [6] Nasal Cannula Oxygen Delivery Method [5] Nasal Cannula Oxygen Delivery Method [4] Nasal Cannula Oxygen Delivery Method [3] Nasal Cannula Oxygen Delivery Method [2] Nasal Cannula Oxygen Delivery Method [1 ( Nasal Cannula Initial Baseline)] Oxygen Delivery Method Room Air Weight: 234 lb 15.992 oz Body Mass Index (BMI) 28.5 Finger Stick Blood Glucose 82 Intake and Output for Last 24 Hours 12/20/17 12/21/17 12/22/17 23:59 23:59 23:59 Intake Total 4421 / 4421 2668 / 2668 407 / 407 Output Total 1500 / 1500 975 / 975 325 / 325 Balance 2921 / 2921 1693 / 1693 82 / 82 Microbiology Past 72 Hours 12/16/17 05:00 Blood Culture - Final Blood Culture (Wb) - Right Hand No growth in 5 days. 12/16/17 05:00 Blood Culture - Final Blood Culture (Wb) - Anticubital Left No growth in 5 days. Laboratory Tests Past 24 Hrs 12/16/17 12/16/17 12/21/17 05:00 13:30 05:32 WBC Corrected WBC RBC Hgb Hct MCV MCH MCHC RDW RDW Differential Plt Count MPV Immature Gran % (Auto) Neut % (Auto) Lymph % (Auto) [place] % (Auto) Eos % (Auto) Baso % (Auto) Absolute Neuts (auto) Absolute Lymphs (auto) Total Counted Differential Comment Diff Path Review Immature Plt Fraction 4.1 Retic Count 1.25 Immature Retic Fraction 3.90 Retic Hgb Equivalent 31.4 PT INR APTT Sodium Potassium Chloride Carbon Dioxide BUN Creatinine Estim Creat Clear Calc Est GFR (MDRD) Af Amer Est GFR (MDRD) Non-Af BUN/Creatinine Ratio Glucose Calcium Phosphorus Albumin Urine Total Protein 101.6 Urine Albumin 32.3 U Jfzdn-7-Azlnkhpj 2.5 U Xcyoi-4-Cmakxwfl 7.7 U Beta Globulin 15.0 U Gamma Globulin 42.4 U PEP M-Vivek BM Aspirate Exam Ur Immunofix PEP Note Comment PEDRO-1 Antibody Not Reportable SS-A/Ro IgG Antibody Not Reportable SS-B/La IgG Antibody Not Reportable Sm (Pickard) Antibody Not Reportable DOUBLE END SEWER Antibody Not Reportable Scl-70 Scleroderma Ab Not Reportable Double Strand DNA Ab Not Reportable Centromere B Antibody Not Reportable 12/22/17 12/22/17 12/22/17 05:15 05:15 05:15 WBC Cancelled Corrected WBC Cancelled RBC Cancelled Hgb Cancelled Hct Cancelled MCV Cancelled MCH Cancelled MCHC Cancelled RDW Cancelled RDW Differential Cancelled Plt Count Cancelled Cancelled MPV Cancelled Immature Gran % (Auto) Neut % (Auto) Lymph % (Auto) [place] % (Auto) Eos % (Auto) Baso % (Auto) Absolute Neuts (auto) Absolute Lymphs (auto) Total Counted Differential Comment Cancelled Diff Path Review Cancelled Immature Plt Fraction Retic Count Immature Retic Fraction Retic Hgb Equivalent PT INR APTT Sodium 141 Potassium 5.7 H Chloride 118 H Carbon Dioxide 17.0 L BUN 60 H Creatinine 3.62 H Estim Creat Clear Calc 26.31 Est GFR (MDRD) Af Amer 22 L Est GFR (MDRD) Non-Af 18 L BUN/Creatinine Ratio 16.6 Glucose 85 Calcium 7.6 L Phosphorus 4.1 Albumin 1.9 L Urine Total Protein Urine Albumin U Wvznc-1-Rjmkjilv U Tynbm-7-Nngtrlrf U Beta Globulin U Gamma Globulin U PEP M-Vivek BM Aspirate Exam Ur Immunofix PEP Note PEDRO-1 Antibody SS-A/Ro IgG Antibody SS-B/La IgG Antibody Sm (Pickard) Antibody DOUBLE END SEWER Antibody Scl-70 Scleroderma Ab Double Strand DNA Ab Centromere B Antibody 12/22/17 12/22/17 12/22/17 05:15 05:15 12:23 WBC 4.0 L Corrected WBC RBC 2.83 L Hgb 8.9 L Hct 28.2 L MCV 99.6 H MCH 31.4 MCHC 31.6 L RDW 20.6 H RDW Differential 72.4 H Plt Count 84 L MPV 10.1 Immature Gran % (Auto) 0.000 Neut % (Auto) 61.1 Lymph % (Auto) 30.5 [place] % (Auto) 7.8 Eos % (Auto) 0.3 Baso % (Auto) 0.3 Absolute Neuts (auto) 2.4 Absolute Lymphs (auto) 1.21 Total Counted Not Reportable Differential Comment SCANNED Diff Path Review Immature Plt Fraction Retic Count Immature Retic Fraction Retic Hgb Equivalent PT 18.5 H INR 1.5 APTT 47.3 H Sodium Potassium Chloride Carbon Dioxide BUN Creatinine Estim Creat Clear Calc Est GFR (MDRD) Af Amer Est GFR (MDRD) Non-Af BUN/Creatinine Ratio Glucose Calcium Phosphorus Albumin Urine Total Protein Urine Albumin U Vhlme-9-Ycgtvcjv U Xhvwz-5-Czaxglqk U Beta Globulin U Gamma Globulin U PEP M-Vivek BM Aspirate Exam Pending Ur Immunofix PEP Note PEDRO-1 Antibody SS-A/Ro IgG Antibody SS-B/La IgG Antibody Sm (Pickard) Antibody DOUBLE END SEWER Antibody Scl-70 Scleroderma Ab Double Strand DNA Ab Centromere B Antibody Code Visit Addendum: Dr. Raines I personally examined the patient and reviewed the chart. I agree with the above. Riana is a 62-year-old male with a history of gastric bypass presenting with chronic anemia, Hemoccult positive stools, acute onset renal failure, and hyperkalemia. She has had both colonoscopy and an EGD both were negative for an acute bleed. When his gastric bypass a red blood cell tag scan was also performed to evaluate the gastric remnant which was also negative for an acute bleed. Currently hematology and nephrology are ruling out multiple myeloma. Renal biopsy and bone marrow aspirate pathology are pending. SPEP UPEP are also pending. Renal function has stabilized and he is making urine. Every day he appears a little bit more frustrated with his situation and not having any answers we will discuss with nephrology and hematology about possible discharge soon. We will also plan to discuss with him his nutritional status, given that he has severe protein malnutrition with an albumin less than 2. Inpatient E&M: 11975 Subs Hosp L2
--- NOTE | 2017-12-22 14:53 | PN_ITS ---
<Neida Fischer - Last Filed: 12/22/17 14:57> Patient Problems: Active and Suspected Problems (Last Reviewed 11/16/17 @ 08:36 by Suzanne Ferris) Acute on chronic anemia (Acute) Hyperglobulinemia (Acute) Pancytopenia (Acute) ARF (acute renal failure) (Acute) Subjective: Patient seen and examined. Status post RBC scan and bone marrow biopsy today. Denies current complaints. - Physical Exam General: Alert, Oriented x3, Cooperative, No apparent distress HEENT: Atraumatic, PERRLA, EOMI, Normocephalic Neck: Supple, No JVD, Negative Carotid Bruits Lungs: Clear to auscultation, Normal air movement Cardiovascular: Regular rate, Regular Rhythm, Normal S1, Normal S2, No murmurs Abdomen: Bowel Sounds Present, Soft, Non Tender, Non-Distended Extremities: No clubbing, No cyanosis, No edema, Capillary Refill Less than 3 Seconds Skin: No rashes, No breakdown Musculoskeletal: No Tenderness to Palpation of Joints or Extremities Neurological: Cranial nerves II-XII grossly intact, Neuro grossly intact Psych/Mental Status: Normal Affect, Appropriate Vital Signs Temp Pulse Resp BP Pulse Ox 98.3 F 64 18 144/66 H 96 12/22/17 14:25 12/22/17 14:25 12/22/17 14:25 12/22/17 14:25 12/22/17 14:25 Oxygen Flow Rate (L/min) [6] 4 Oxygen Flow Rate (L/min) [5] 4 Oxygen Flow Rate (L/min) [4] 4 Oxygen Flow Rate (L/min) [3] 4 Oxygen Flow Rate (L/min) [2] 4 Oxygen Flow Rate (L/min) [1 ( 2 Initial Baseline)] Oxygen Flow Rate (L/min) 2 Oxygen Delivery Method [6] Nasal Cannula Oxygen Delivery Method [5] Nasal Cannula Oxygen Delivery Method [4] Nasal Cannula Oxygen Delivery Method [3] Nasal Cannula Oxygen Delivery Method [2] Nasal Cannula Oxygen Delivery Method [1 ( Nasal Cannula Initial Baseline)] Oxygen Delivery Method Room Air Weight: 234 lb 15.992 oz Body Mass Index (BMI) 28.5 Finger Stick Blood Glucose 82 Intake and Output for Last 24 Hours 12/20/17 12/21/17 12/22/17 23:59 23:59 23:59 Intake Total 4421 / 4421 2668 / 2668 407 / 407 Output Total 1500 / 1500 975 / 975 325 / 325 Balance 2921 / 2921 1693 / 1693 82 / 82 Microbiology Past 72 Hours 12/16/17 05:00 Blood Culture - Final Blood Culture (Wb) - Right Hand No growth in 5 days. 12/16/17 05:00 Blood Culture - Final Blood Culture (Wb) - Anticubital Left No growth in 5 days. Laboratory Tests Past 24 Hrs 12/16/17 12/16/17 12/21/17 05:00 13:30 05:32 WBC Corrected WBC RBC Hgb Hct MCV MCH MCHC RDW RDW Differential Plt Count MPV Immature Gran % (Auto) Neut % (Auto) Lymph % (Auto) Lucas % (Auto) Eos % (Auto) Baso % (Auto) Absolute Neuts (auto) Absolute Lymphs (auto) Total Counted Differential Comment Diff Path Review Immature Plt Fraction 4.1 Retic Count 1.25 Immature Retic Fraction 3.90 Retic Hgb Equivalent 31.4 PT INR APTT Sodium Potassium Chloride Carbon Dioxide BUN Creatinine Estim Creat Clear Calc Est GFR (MDRD) Af Amer Est GFR (MDRD) Non-Af BUN/Creatinine Ratio Glucose Calcium Phosphorus Albumin Urine Total Protein 101.6 Urine Albumin 32.3 U Lksfq-2-Sfbavmim 2.5 U Bepuk-8-Riijassa 7.7 U Beta Globulin 15.0 U Gamma Globulin 42.4 U PEP M-Vivek BM Aspirate Exam Ur Immunofix PEP Note Comment PEDRO-1 Antibody Not Reportable SS-A/Ro IgG Antibody Not Reportable SS-B/La IgG Antibody Not Reportable Sm (Pickard) Antibody Not Reportable [employer] Antibody Not Reportable Scl-70 Scleroderma Ab Not Reportable Double Strand DNA Ab Not Reportable Centromere B Antibody Not Reportable 12/22/17 12/22/17 12/22/17 05:15 05:15 05:15 WBC Cancelled Corrected WBC Cancelled RBC Cancelled Hgb Cancelled Hct Cancelled MCV Cancelled MCH Cancelled MCHC Cancelled RDW Cancelled RDW Differential Cancelled Plt Count Cancelled Cancelled MPV Cancelled Immature Gran % (Auto) Neut % (Auto) Lymph % (Auto) Lucas % (Auto) Eos % (Auto) Baso % (Auto) Absolute Neuts (auto) Absolute Lymphs (auto) Total Counted Differential Comment Cancelled Diff Path Review Cancelled Immature Plt Fraction Retic Count Immature Retic Fraction Retic Hgb Equivalent PT INR APTT Sodium 141 Potassium 5.7 H Chloride 118 H Carbon Dioxide 17.0 L BUN 60 H Creatinine 3.62 H Estim Creat Clear Calc 26.31 Est GFR (MDRD) Af Amer 22 L Est GFR (MDRD) Non-Af 18 L BUN/Creatinine Ratio 16.6 Glucose 85 Calcium 7.6 L Phosphorus 4.1 Albumin 1.9 L Urine Total Protein Urine Albumin U Rthai-6-Tjjztqax U Jpftt-8-Iddjvjbe U Beta Globulin U Gamma Globulin U PEP M-Vivek BM Aspirate Exam Ur Immunofix PEP Note PEDRO-1 Antibody SS-A/Ro IgG Antibody SS-B/La IgG Antibody Sm (Pickard) Antibody [employer] Antibody Scl-70 Scleroderma Ab Double Strand DNA Ab Centromere B Antibody 12/22/17 12/22/17 12/22/17 05:15 05:15 12:23 WBC 4.0 L Corrected WBC RBC 2.83 L Hgb 8.9 L Hct 28.2 L MCV 99.6 H MCH 31.4 MCHC 31.6 L RDW 20.6 H RDW Differential 72.4 H Plt Count 84 L MPV 10.1 Immature Gran % (Auto) 0.000 Neut % (Auto) 61.1 Lymph % (Auto) 30.5 Lucas % (Auto) 7.8 Eos % (Auto) 0.3 Baso % (Auto) 0.3 Absolute Neuts (auto) 2.4 Absolute Lymphs (auto) 1.21 Total Counted Not Reportable Differential Comment SCANNED Diff Path Review Immature Plt Fraction Retic Count Immature Retic Fraction Retic Hgb Equivalent PT 18.5 H INR 1.5 APTT 47.3 H Sodium Potassium Chloride Carbon Dioxide BUN Creatinine Estim Creat Clear Calc Est GFR (MDRD) Af Amer Est GFR (MDRD) Non-Af BUN/Creatinine Ratio Glucose Calcium Phosphorus Albumin Urine Total Protein Urine Albumin U Hbhsm-3-Crjjeisj U Wnrcm-3-Dpjclhdy U Beta Globulin U Gamma Globulin U PEP M-Vivek BM Aspirate Exam Pending Ur Immunofix PEP Note PEDRO-1 Antibody SS-A/Ro IgG Antibody SS-B/La IgG Antibody Sm (Pickard) Antibody [employer] Antibody Scl-70 Scleroderma Ab Double Strand DNA Ab Centromere B Antibody Medical Necessity - Tobacco Use Smoking Status: Current some day smoker Assessment/Plan All Active Problems (Last Reviewed 11/16/17 @ 08:36 by Suzanne Ferris) Acute on chronic anemia (Acute) Hyperglobulinemia (Acute) Pancytopenia (Acute) GI bleed (Acute) ARF (acute renal failure) (Acute) Acute CVA (cerebrovascular accident) (Acute 10/27/17) 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) Atrial fibrillation (Acute) Sinus bradycardia (Acute) SOB (shortness of breath) (Acute) Atrioventricular block, type I (Acute) Premature ventricular contraction (Acute) Abnormal EKG (Acute) Bruit of left carotid artery (Acute) 1. Acute anemia on chronic iron deficiency anemia-History of upper GI bleed. Stool + OB. Status post 5 units PRBC. Plt X2. Continue PPI twice daily. Continue to hold anticoagulation. EGD with Dr. Sanabria 12/18/2017 with no source of bleeding. Colonoscopy showed no bleeding source as well. Trend CBC. Hematology following. Patient underwent RBC scan today which was negative. Bone marrow biopsy completed and results pending. Hematology suspecting possible multiple myeloma? Further workup pending. 2. Acute kidney injury, unclear etiology-nephrology involved. Kidney biopsy results pending. [place] in place. Continue gentle hydration. Serologies pending. 3. Hyperkalemia-secondary to #2. Kayexalate x1 today. Trend BMP. 4. History of CVA with residual dysphagia-ST evaluation. Patient denies cough, fever/chills. No leukocytosis. Pneumonia initially suspected on admission due to chest x-ray which showed bibasilar infiltrates, worse on the right side. Patient has had intermittent low-grade fever. Urine for strep and Legionella negative. Sputum culture shows strep C. PNA ruled out. Continue dietary modifications per speech therapy recommendations. 5. Thrombocytopenia-trend CBC. Plt given X2. 6. CAD s/p CABG-continue statin, metoprolol. Aspirin and Eliquis on hold. 7. Status post aortic valve replacement 8. Sick sinus syndrome status post pacemaker 9. Paroxysmal atrial fibrillation-continue metoprolol. Eliquis on hold secondary to #1. 10. Hypothyroidism-continue Synthroid. DVT prophylaxis-SCDs. This patient was seen by FAYE Mathew under the supervision of Dr. Raines. <Loki Raines - Last Filed: 12/22/17 15:06> - Physical Exam Vital Signs Temp Pulse Resp BP Pulse Ox 98.3 F 64 18 144/66 H 96 12/22/17 14:25 12/22/17 14:25 12/22/17 14:25 12/22/17 14:25 12/22/17 14:25 Oxygen Flow Rate (L/min) [6] 4 Oxygen Flow Rate (L/min) [5] 4 Oxygen Flow Rate (L/min) [4] 4 Oxygen Flow Rate (L/min) [3] 4 Oxygen Flow Rate (L/min) [2] 4 Oxygen Flow Rate (L/min) [1 ( 2 Initial Baseline)] Oxygen Flow Rate (L/min) 2 Oxygen Delivery Method [6] Nasal Cannula Oxygen Delivery Method [5] Nasal Cannula Oxygen Delivery Method [4] Nasal Cannula Oxygen Delivery Method [3] Nasal Cannula Oxygen Delivery Method [2] Nasal Cannula Oxygen Delivery Method [1 ( Nasal Cannula Initial Baseline)] Oxygen Delivery Method Room Air Weight: 234 lb 15.992 oz Body Mass Index (BMI) 28.5 Finger Stick Blood Glucose 82 Intake and Output for Last 24 Hours 12/20/17 12/21/17 12/22/17 23:59 23:59 23:59 Intake Total 4421 / 4421 2668 / 2668 407 / 407 Output Total 1500 / 1500 975 / 975 325 / 325 Balance 2921 / 2921 1693 / 1693 82 / 82 Microbiology Past 72 Hours 12/16/17 05:00 Blood Culture - Final Blood Culture (Wb) - Right Hand No growth in 5 days. 12/16/17 05:00 Blood Culture - Final Blood Culture (Wb) - Anticubital Left No growth in 5 days. Laboratory Tests Past 24 Hrs 12/16/17 12/16/17 12/21/17 05:00 13:30 05:32 WBC Corrected WBC RBC Hgb Hct MCV MCH MCHC RDW RDW Differential Plt Count MPV Immature Gran % (Auto) Neut % (Auto) Lymph % (Auto) Lucas % (Auto) Eos % (Auto) Baso % (Auto) Absolute Neuts (auto) Absolute Lymphs (auto) Total Counted Differential Comment Diff Path Review Immature Plt Fraction 4.1 Retic Count 1.25 Immature Retic Fraction 3.90 Retic Hgb Equivalent 31.4 PT INR APTT Sodium Potassium Chloride Carbon Dioxide BUN Creatinine Estim Creat Clear Calc Est GFR (MDRD) Af Amer Est GFR (MDRD) Non-Af BUN/Creatinine Ratio Glucose Calcium Phosphorus Albumin Urine Total Protein 101.6 Urine Albumin 32.3 U Nvuaa-0-Pcnsiwpb 2.5 U Nnswr-2-Azcnyouu 7.7 U Beta Globulin 15.0 U Gamma Globulin 42.4 U PEP M-Vivek BM Aspirate Exam Ur Immunofix PEP Note Comment PEDRO-1 Antibody Not Reportable SS-A/Ro IgG Antibody Not Reportable SS-B/La IgG Antibody Not Reportable Sm (Pickard) Antibody Not Reportable [employer] Antibody Not Reportable Scl-70 Scleroderma Ab Not Reportable Double Strand DNA Ab Not Reportable Centromere B Antibody Not Reportable 12/22/17 12/22/17 12/22/17 05:15 05:15 05:15 WBC Cancelled Corrected WBC Cancelled RBC Cancelled Hgb Cancelled Hct Cancelled MCV Cancelled MCH Cancelled MCHC Cancelled RDW Cancelled RDW Differential Cancelled Plt Count Cancelled Cancelled MPV Cancelled Immature Gran % (Auto) Neut % (Auto) Lymph % (Auto) Lucas % (Auto) Eos % (Auto) Baso % (Auto) Absolute Neuts (auto) Absolute Lymphs (auto) Total Counted Differential Comment Cancelled Diff Path Review Cancelled Immature Plt Fraction Retic Count Immature Retic Fraction Retic Hgb Equivalent PT INR APTT Sodium 141 Potassium 5.7 H Chloride 118 H Carbon Dioxide 17.0 L BUN 60 H Creatinine 3.62 H Estim Creat Clear Calc 26.31 Est GFR (MDRD) Af Amer 22 L Est GFR (MDRD) Non-Af 18 L BUN/Creatinine Ratio 16.6 Glucose 85 Calcium 7.6 L Phosphorus 4.1 Albumin 1.9 L Urine Total Protein Urine Albumin U Smxej-9-Fkcypmld U Asfws-9-Hvnnnwbf U Beta Globulin U Gamma Globulin U PEP M-Vivek BM Aspirate Exam Ur Immunofix PEP Note PEDRO-1 Antibody SS-A/Ro IgG Antibody SS-B/La IgG Antibody Sm (Pickard) Antibody [employer] Antibody Scl-70 Scleroderma Ab Double Strand DNA Ab Centromere B Antibody 12/22/17 12/22/17 12/22/17 05:15 05:15 12:23 WBC 4.0 L Corrected WBC RBC 2.83 L Hgb 8.9 L Hct 28.2 L MCV 99.6 H MCH 31.4 MCHC 31.6 L RDW 20.6 H RDW Differential 72.4 H Plt Count 84 L MPV 10.1 Immature Gran % (Auto) 0.000 Neut % (Auto) 61.1 Lymph % (Auto) 30.5 Lucas % (Auto) 7.8 Eos % (Auto) 0.3 Baso % (Auto) 0.3 Absolute Neuts (auto) 2.4 Absolute Lymphs (auto) 1.21 Total Counted Not Reportable Differential Comment SCANNED Diff Path Review Immature Plt Fraction Retic Count Immature Retic Fraction Retic Hgb Equivalent PT 18.5 H INR 1.5 APTT 47.3 H Sodium Potassium Chloride Carbon Dioxide BUN Creatinine Estim Creat Clear Calc Est GFR (MDRD) Af Amer Est GFR (MDRD) Non-Af BUN/Creatinine Ratio Glucose Calcium Phosphorus Albumin Urine Total Protein Urine Albumin U Vwjxc-3-Nuvambee U Ctaio-7-Ymlhydco U Beta Globulin U Gamma Globulin U PEP M-Vivek BM Aspirate Exam Pending Ur Immunofix PEP Note PEDRO-1 Antibody SS-A/Ro IgG Antibody SS-B/La IgG Antibody Sm (Pickard) Antibody [employer] Antibody Scl-70 Scleroderma Ab Double Strand DNA Ab Centromere B Antibody Code Visit Addendum: Dr. Raines I personally examined the patient and reviewed the chart. I agree with the above. Riana is a 62-year-old male with a history of gastric bypass presenting with chronic anemia, Hemoccult positive stools, acute onset renal failure, and hyperkalemia. She has had both colonoscopy and an EGD both were negative for an acute bleed. When his gastric bypass a red blood cell tag scan was also performed to evaluate the gastric remnant which was also negative for an acute bleed. Currently hematology and nephrology are ruling out multiple myeloma. Renal biopsy and bone marrow aspirate pathology are pending. SPEP UPEP are also pending. Renal function has stabilized and he is making urine. Every day he appears a little bit more frustrated with his situation and not having any answers we will discuss with nephrology and hematology about possible discharge soon. We will also plan to discuss with him his nutritional status, given that he has severe protein malnutrition with an albumin less than 2. Inpatient E&M: 76117 Subs Hosp L2
[2017-12-22 16:08] LABS: Albumin 2.4 g/dL (2.9-4.4); Alpha-1-Globulins 0.2 g/dL (0.0-0.4); Alpha-2-Globulins 0.5 g/dL (0.4-1.0); Free Kappa Light Chains 402.7 mg/L (3.3-19.4); Free Lambda Light Chains 378.8 mg/L (5.7-26.3); Gamma Globulin 3.2 g/dL (0.4-1.8); Immunoglobulin A 349 mg/dL (61-437); Immunoglobulin G 3273 mg/dL (700-1600); Immunoglobulin M 159 mg/dL (20-172)
[2017-12-22] MEDS: Atorvastatin Calcium 80 MG Tablet PO (21:43)
[2017-12-23] VITALS (9 sets, daily range): BP systolic 123–138; BP diastolic 62–79; PULSE 60–68; RESP 16–18; TEMP 36.1–37; O2SAT 95–96
[2017-12-23] MEDS: 0.9% Normal Saline 1,000 ML 75 ML IV ×2 (00:46→13:57)
[2017-12-23 06:01] LABS: Hematocrit 26.1 % (40-54); Hemoglobin 8.4 g/dl (13.0-16.5); Mean Corp Hgb Conc 32.2 g/gl (32-36); Mean Corpuscular Hgb 32.1 pg (27.0-32.0); Mean Corpuscular Volume 99.6 fL (80-94); Mean Platelet Vol. 10.4 fl (6.2-12.0); Platelet Count 84 K/mm3 (150-450); RBC Distribution Width SD 70.6 fl (35.1-43.9); Red Blood Count 2.62 M/mm3 (4.6-6.2); White Blood Count 3.9 K/mm3 (4.4-11.0)
[2017-12-23 06:07] LABS: Scan Indicated on CBC? Y/N YES- FLAGS NOTED
[2017-12-23 06:13] LABS: Anion Gap 5 (5-15); BUN 60 mg/dL (7-18); BUN/Creat Ratio 16.2 RATIO (10-20); Calcium,Total 7.8 mg/dL (8.5-10.1); Chloride 119 mmol/L (98-107); Creatinine, Serum 3.71 mg/dL (0.70-1.30); EST Glomerular Filtration Rate 18 mL/min (>60); Est Glom Filt Rate - Afr Amer 22 mL/min (>60); Estimated Creatinine Clearance 25.67 ml/min; Glucose 83 mg/dL (74-106); Potassium 5.6 mmol/L (3.5-5.1); Sodium Level 141 mmol/L (136-145)
[2017-12-23] MEDS: Levothyroxine 100 MCG Tablet 200 MCG PO (06:14)
[2017-12-23] MEDS: hydrALAZINE 25 MG Tablet PO ×3 (06:15→21:07)
[2017-12-23 06:32] LABS: Differential Comment SCANNED
[2017-12-23] MEDS: Multivitamins,Therapeutic Tablet 1 TABLET PO (08:37)
[2017-12-23] MEDS: Metoprolol Tartrate 25 MG Tablet 12.5 MG PO ×2 (08:38→21:08)
[2017-12-23] MEDS: Cyanocobalamin 500 MCG Tablet PO (08:38)
[2017-12-23] MEDS: Magnesium Oxide 400 MG Tablet PO (08:39)
[2017-12-23] MEDS: Ascorbic Acid 500 MG Tablet PO (08:39)
[2017-12-23] MEDS: Pantoprazole Sodium 40 MG Tablet PO (08:39)
[2017-12-23] MEDS: predniSONE 20 MG Tablet 60 MG PO (10:45)
--- NOTE | 2017-12-23 11:01 | PN.RENAL_ITS ---
Subjective: complains of fatigue, weakness hgb 8.4g today. Discussed initiation of VALERI therapy for anemia if ok with hematology. Reviewed kidney biopsy with pathology last night. IF stain with C3 and C1Q deposits in mesangium. Will initiate steroid therapy. Discussed risks, benefits, potential side effects with pt. - Physical Exam General: Alert, Oriented x3, Cooperative, - - weak Oral: Dry Mucosa Lungs: Clear to auscultation Cardiovascular: Regular rate, No rub noted Abdomen: Bowel Sounds Present, Soft, Non Tender, Non-Distended Extremities: No edema Skin: No rashes Neurological: Cranial nerves II-XII grossly intact Psych/Mental Status: Normal Affect, Appropriate, Alert and oriented to time, place, person, mood and affect Vital Signs Temp Pulse Resp BP Pulse Ox 98.6 F 60 16 134/79 H 95 12/23/17 08:27 12/23/17 08:38 12/23/17 08:27 12/23/17 08:27 12/23/17 08:27 Oxygen Flow Rate (L/min) [6] 4 Oxygen Flow Rate (L/min) [5] 4 Oxygen Flow Rate (L/min) [4] 4 Oxygen Flow Rate (L/min) [3] 4 Oxygen Flow Rate (L/min) [2] 4 Oxygen Flow Rate (L/min) [1 ( 2 Initial Baseline)] Oxygen Flow Rate (L/min) 2 Oxygen Delivery Method [6] Nasal Cannula Oxygen Delivery Method [5] Nasal Cannula Oxygen Delivery Method [4] Nasal Cannula Oxygen Delivery Method [3] Nasal Cannula Oxygen Delivery Method [2] Nasal Cannula Oxygen Delivery Method [1 ( Nasal Cannula Initial Baseline)] Oxygen Delivery Method Room Air Weight: 106.594 kg Body Mass Index (BMI) 28.5 Finger Stick Blood Glucose 82 Intake and Output for Last 24 Hours 12/21/17 12/22/17 12/23/17 23:59 23:59 23:59 Intake Total 2668 / 2668 1307 / 1307 1108 / 1108 Output Total 975 / 975 1005 / 1005 1300 / 1300 Balance 1693 / 1693 302 / 302 -192 / -192 Microbiology Past 72 Hours 12/16/17 05:00 Blood Culture - Final Blood Culture (Wb) - Right Hand No growth in 5 days. 12/16/17 05:00 Blood Culture - Final Blood Culture (Wb) - Anticubital Left No growth in 5 days. Laboratory Tests Past 24 Hrs 12/22/17 12/22/17 12/22/17 05:15 05:15 12:23 WBC Cancelled 4.0 L Corrected WBC Cancelled RBC Cancelled 2.83 L Hgb Cancelled 8.9 L Hct Cancelled 28.2 L MCV Cancelled 99.6 H MCH Cancelled 31.4 MCHC Cancelled 31.6 L RDW Cancelled 20.6 H RDW Differential Cancelled 72.4 H Plt Count Cancelled 84 L MPV Cancelled 10.1 Immature Gran % (Auto) 0.000 Neut % (Auto) 61.1 Lymph % (Auto) 30.5 Josephine % (Auto) 7.8 Eos % (Auto) 0.3 Baso % (Auto) 0.3 Absolute Neuts (auto) 2.4 Absolute Lymphs (auto) 1.21 Total Counted Not Reportable Differential Comment Cancelled SCANNED Diff Path Review Cancelled Sodium Potassium Chloride Carbon Dioxide Anion Gap BUN Creatinine Estim Creat Clear Calc Est GFR (MDRD) Af Amer Est GFR (MDRD) Non-Af BUN/Creatinine Ratio Glucose Calcium Magnesium BM Aspirate Exam Pending Urine Immunofixation 12/23/17 12/23/17 12/23/17 05:20 05:20 05:20 WBC 3.9 L Corrected WBC RBC 2.62 L Hgb 8.4 L Hct 26.1 L MCV 99.6 H MCH 32.1 H MCHC 32.2 RDW 20.0 H RDW Differential 70.6 H Plt Count 84 L MPV 10.4 Immature Gran % (Auto) Neut % (Auto) Lymph % (Auto) Josephine % (Auto) Eos % (Auto) Baso % (Auto) Absolute Neuts (auto) Absolute Lymphs (auto) Total Counted Differential Comment SCANNED Diff Path Review Sodium 141 Potassium 5.6 H Chloride 119 H Carbon Dioxide 17.0 L Anion Gap 5 BUN 60 H Creatinine 3.71 H Estim Creat Clear Calc 25.67 Est GFR (MDRD) Af Amer 22 L Est GFR (MDRD) Non-Af 18 L BUN/Creatinine Ratio 16.2 Glucose 83 Calcium 7.8 L Magnesium Pending BM Aspirate Exam Urine Immunofixation 12/23/17 07:20 WBC Corrected WBC RBC Hgb Hct MCV MCH MCHC RDW RDW Differential Plt Count MPV Immature Gran % (Auto) Neut % (Auto) Lymph % (Auto) Josephine % (Auto) Eos % (Auto) Baso % (Auto) Absolute Neuts (auto) Absolute Lymphs (auto) Total Counted Differential Comment Diff Path Review Sodium Potassium Chloride Carbon Dioxide Anion Gap BUN Creatinine Estim Creat Clear Calc Est GFR (MDRD) Af Amer Est GFR (MDRD) Non-Af BUN/Creatinine Ratio Glucose Calcium Magnesium BM Aspirate Exam Urine Immunofixation Pending Medical Necessity - Tobacco Use Smoking Status: Current some day smoker Assessment/Plan All Active Problems (Last Reviewed 11/16/17 @ 08:36 by Suzanne Ferris) Acute on chronic anemia (Acute) Hyperglobulinemia (Acute) Pancytopenia (Acute) GI bleed (Acute) ARF (acute renal failure) (Acute) Acute CVA (cerebrovascular accident) (Acute 10/27/17) 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) Atrial fibrillation (Acute) Sinus bradycardia (Acute) SOB (shortness of breath) (Acute) Atrioventricular block, type I (Acute) Premature ventricular contraction (Acute) Abnormal EKG (Acute) Bruit of left carotid artery (Acute) 1. IRINA baseline creatinine 0.99 in October increased to 4.2 on admission to 3.8 today. + Proteinuria 2.3g, CrCl 27cc/min on 24h urine. Reviewed prelim renal biopsy results with pathology last night. IF positive for C3 and C1Q in mesangium, seronegative ANDREZ. SPEP asymmetric gamma, UPEP pending. C3/C4 pending. EM no subepithelial deposits. Initiate prednisone 60mg daily. 2. Profound anemia off Eliquis and ASA, stool + for occult blood s/p EGD and colonoscopy. BM bx yesterday. Consider VALERI therapy. Defer to hematology 3. Hx GI bleed, min-en-y on PPI. 4. CAD s/p CABG, AVR bioprosthetic valve 5. Leg edema with nonnephrotic proteinuria resolved. 6. 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
--- NOTE | 2017-12-23 11:44 | DCINST_ITS ---
- Discharge Diagnoses Current Active Problems: Current Active and Chronic Problems (Last Reviewed 11/16/17 @ 08:36 by Suzanne Ferris) Acute on chronic anemia (Acute) Hyperglobulinemia (Acute) Pancytopenia (Acute) ARF (acute renal failure) (Acute) You will use the following diet at home:: No restrictions - Low Potassium diet. Chin tuck with all thin liquids. Discharge Activity: Return to Normal Activity Call your doctor if you observe: Fever of 101 or Higher, Shortness of breath, Dizziness, Fainting spells, Chest pain Allergies/Adverse Reactions: Allergies Penicillins Allergy (Verified 12/14/17 21:35) Hives Medications to take at Discharge ascorbic acid (vitamin C) 500 mg capsule 500 mg PO QDAY ea 03/26/17 levothyroxine 200 mcg tablet 200 mcg PO QDAY tab 03/26/17 pantoprazole 40 mg tablet,delayed release 40 mg PO BID tab 03/26/17 cyanocobalamin (vit B-12) 500 mcg tablet 500 mcg PO QDAY 03/27/17 magnesium oxide 400 mg capsule 400 mg PO QDAY cap 05/18/17 multivitamin tablet 1 tab PO QDAY 05/18/17 metoprolol tartrate 25 mg tablet 12.5 mg PO BID tab 06/01/17 hydralazine 25 mg tablet 25 mg PO Q8H #90 tab 06/24/17 Acetaminophen [Tylenol] 500 mg PO Q4H PRN PRN 10/27/17 cholecalciferol (vitamin D3) 2,000 unit tablet 2,000 unit PO DAILY 11/16/17 atorvastatin 80 mg tablet 80 mg PO DAILY #90 tab 12/01/17 Ferrous Sulfate [Iron] 325 mg PO BID #60 tablet 12/23/17 Prednisone 60 mg PO DAILY #21 tablet 12/23/17 The following prescriptions were given: Prednisone 60 mg PO DAILY #21 tablet Ferrous Sulfate [Iron] 325 mg PO BID #60 tablet Orders to be completed after discharge: Basic Metabolic Profile (BMP) Time Frame: 3 Days, Location: Laboratory Primary Care Physician: Tapan Cuellar DO [Primary Care Provider] - Please follow up with your Primary Care Physician in: 1 Week Test Results: Test results from this visit will be discussed in further detail at your follow- up appointment, if applicable. Please Follow Up With: Surjit Rizvi MD - Or Vera Stanton When: Within one week Please Follow Up With: Shanatl Palmer DO When: 1 Week Proposed Discharge Date: 12/23/17
[2017-12-23 11:50] LABS: Complement C3 64 mg/dL (82-167); IMMUNOFIXATION RESULT,S Comment: (.)
--- NOTE | 2017-12-23 11:53 | PCM.DC.SUM ---
<Neida Fischer - Last Filed: 12/23/17 12:01> Discharge Date and Diagnosis Date of Admission: 12/15/17 Date of Discharge: 12/23/17 - Primary Discharge Diagnosis Active and Suspected Problems (Last Reviewed 11/16/17 @ 08:36 by Suzanne Ferris) 1. Acute anemia on chronic iron deficiency anemia, unclear etiology-renal and bone marrow biopsies pending at discharge. 2. Acute kidney injury 3. 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 Rich[employer] Tirfecta pericardial valve Aortic stenosis (Chronic) S/P valve replacement with 27mm [employer] Richi Trifecta pericardial valve; Atherosclerotic heart disease of kaw coronary artery without angina pectoris (Chronic) Hyperlipidemia (Chronic) Ventricular hypertrophy (Chronic) Hospital Course and Treatment Imaging Results: Diagnostic Data Renal Ultrasound 12/15/17 09:28 IMPRESSION: 1. Normal ultrasound of the kidneys. 2. The urinary bladder is not visualized. 3. Incidental note of gallstones and mild pericholecystic fluid. The gallbladder is partially contracted, precluding accurate evaluation of mural thickness. Acute cholecystitis is not excluded by this study, however. 4. Fatty infiltration of the liver. Electronically Signed: Christ Vela MD at 16:09 EDT , Service support , Chest X-Ray 12/16/17 09:16 IMPRESSION: Residual bibasilar infiltrates worse on the right side with the blunting of both costophrenic angles worse on the right side Electronically Signed: Yosvany Carlos MD at 11:10 EDT Tel [phone], Service support , Videofluoroscopic Swallow 12/17/17 13:30 IMPRESSION: Penetration and silent aspiration with ingestion of thin liquids. This improves with the chin tuck maneuver. The swallow study findings were discussed with the patient by the speech pathologist at the conclusion of the examination. Please see speech pathology report for more information and recommendations. Electronically Signed: Yosvany Carlos MD at 14:19 EDT Tel [phone], Service support , GI Bleed Scan Nuclear Medicine 12/22/17 08:30 IMPRESSION: 1. NEGATIVE 99m Tc ULTRATAG LABELED BLOOD POOL GASTROINTESTINAL BLEEDING EXAMINATION. 2. There is no definitive typical scintigraphic evidence of acute gastrointestinal hemorrhage on the current evaluation. Electronically Signed: Eliseo Santana DO at 10:44 EDT Tel , Service support , Biopsy CT 12/22/17 10:00 IMPRESSION: Successful CT guided bone marrow biopsy and aspirate of the posterior aspect of the left iliac bone., as described above. Electronically Signed: Yosvany Carlos MD at 11:30 EDT Tel [phone], Service support , Dr. Rizvi- Oncology Dr. Palmer- Nephrology Dr. Sanabria- General surgery Operations: None Procedures: Colonoscopy, EGD, - - Renal biopsy, bone marrow biopsy. Summary of Care Provided: The patient is a 62 year old M admitted 12/15/2017 due to shortness of breath and fatigue. 1. Acute anemia on chronic iron deficiency anemia-History of upper GI bleed. Stool + OB. Status post 5 units PRBC. Plt X2. Continue PPI twice daily. Continue to hold anticoagulation. EGD with Dr. Sanabria 12/18/2017 with no source of bleeding. Colonoscopy showed no bleeding source as well. Hematology following. Patient underwent RBC scan which was negative. Bone marrow biopsy completed and results pending. Hematology suspecting possible multiple myeloma? Further workup pending. Blood count stable. Patient will be discharged home with follow-up with oncology in 1 week. Follow-up with primary care physician in 1 week. Continue iron supplementation. 2. Acute kidney injury, unclear etiology-nephrology involved. Kidney biopsy results pending. Serologies pending. Follow-up with Dr. Palmer in 1 week, renal bx results should be available at that time. Patient started on prednisone 60 mg daily. This will be continued until further follow-up with oncology/nephrology. 3. Hyperkalemia-secondary to #2. Kayexalate x1. Repeat BMP in 3 days. 4. History of CVA with residual dysphagia-ST evaluation. Patient denies cough, fever/chills. No leukocytosis. Pneumonia initially suspected on admission due to chest x-ray which showed bibasilar infiltrates, worse on the right side. Urine for strep and Legionella negative. Sputum culture shows strep C. PNA ruled out. Continue dietary modifications per speech therapy recommendations. 5. Pancytopenia/thrombocytopenia-trend CBC. Plt given X2. 6. CAD s/p CABG-continue statin, metoprolol. Aspirin and Eliquis on hold. 7. Status post aortic valve replacement 8. Sick sinus syndrome status post pacemaker 9. Paroxysmal atrial fibrillation-continue metoprolol. Eliquis on hold secondary to #1. 10. Hypothyroidism-continue Synthroid. General: Alert, Oriented x3, Cooperative, No apparent distress HEENT: Atraumatic, PERRLA, EOMI, Normocephalic Neck: Supple, No JVD, Negative Carotid Bruits Lungs: Clear to auscultation, Normal air movement Cardiovascular: Regular rate, Regular Rhythm, Normal S1, Normal S2, No murmurs Abdomen: Bowel Sounds Present, Soft, Non Tender, Non-Distended Extremities: No clubbing, No cyanosis, No edema, Capillary Refill Less than 3 Seconds Skin: No rashes, No breakdown Musculoskeletal: No Tenderness to Palpation of Joints or Extremities Neurological: Cranial nerves II-XII grossly intact, Neuro grossly intact Psych/Mental Status: Normal Affect, Appropriate Patient seen exam prior to discharge. Physical assessment as noted above. Patient stable for discharge home with further follow-up recommendations as noted above. This patient was seen by FAYE Mathew under the supervision of Dr. Raines. Discharge Diet: - - Low potassium diet Discharge Activity: Return to Normal Activity Call your doctor if you observe: Fever of 101 or Higher, Shortness of breath, Dizziness, Fainting spells, Chest pain Home Medications: Medications to take at Discharge ascorbic acid (vitamin C) 500 mg capsule 500 mg PO QDAY ea 03/26/17 levothyroxine 200 mcg tablet 200 mcg PO QDAY tab 03/26/17 pantoprazole 40 mg tablet,delayed release 40 mg PO BID tab 03/26/17 cyanocobalamin (vit B-12) 500 mcg tablet 500 mcg PO QDAY 03/27/17 magnesium oxide 400 mg capsule 400 mg PO QDAY cap 05/18/17 multivitamin tablet 1 tab PO QDAY 05/18/17 metoprolol tartrate 25 mg tablet 12.5 mg PO BID tab 06/01/17 hydralazine 25 mg tablet 25 mg PO Q8H #90 tab 06/24/17 Acetaminophen [Tylenol] 500 mg PO Q4H PRN PRN 10/27/17 cholecalciferol (vitamin D3) 2,000 unit tablet 2,000 unit PO DAILY 11/16/17 atorvastatin 80 mg tablet 80 mg PO DAILY #90 tab 12/01/17 Ferrous Sulfate [Iron] 325 mg PO BID #60 tablet 12/23/17 Prednisone 60 mg PO DAILY #21 tablet 12/23/17 Following Prescrptions Were Given to Patient: Prednisone 60 mg PO DAILY #21 tablet Ferrous Sulfate [Iron] 325 mg PO BID #60 tablet Other Amb Orders: Basic Metabolic Profile (BMP) Time Frame: 3 Days, Location: Laboratory Primary Care Physician: Tapan Cuellar DO [Primary Care Provider] - Please follow up with your Primary Care Physician in: 1 Week Please Follow Up With: Surjit Rizvi MD - Or Vera Stanton When: Within one week Please Follow Up With: Shantal Palmer DO When: 1 Week Disposition: Home Minutes spent on discharge:: 35 Patient Condition:: Stable Medical Necessity - Tobacco Use Smoking Status: Current some day smoker Meaningful Use Info Meaningful Use Diagnoses (Choose all that apply): None applicable <Loki Raines - Last Filed: 12/24/17 11:13> Discharge Date and Diagnosis - Secondary Discharge Diagnosis Chronic Problems (Last Reviewed 11/16/17 @ 08:36 by Suzanne Ferris) Nicotine abuse (Chronic) Premature atrial contractions (Chronic) 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 Richi Tirfecta pericardial valve Aortic stenosis (Chronic) S/P valve replacement with 27mm [employer] Richi Trifecta pericardial valve; Atherosclerotic heart disease of kaw coronary artery without angina pectoris (Chronic) Hyperlipidemia (Chronic) Ventricular hypertrophy (Chronic) Hospital Course and Treatment Summary of Care Provided: The patient is a 62 year old M [] Code Visit Addendum: Dr. Raines I personally examined the patient and reviewed the chart. I agree with the above. Mr. King is a 62-year-old male presenting with an acute onset renal failure. He also has acute on chronic anemia and he was transfused 6 units during his stay with no real adequate response. He has a history of a Elmer-en-Y gastric bypass and both EGD and colonoscopy during the stay were negative as was a red blood cell scan for his gastric remnant. Because of his anemia he was started on iron replacement as well as vitamin C because of the PPI he was taking. There has been a delay in obtaining pathology for his renal biopsy due to difficulty interpreting the biopsy, we have had 3 different pathologist examining the slides with no definitive conclusion. 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 Started on prednisone 60 mg. Related to his acute renal failure he was also hyperkalemic, and was given a dose of Kayexalate. During his stay here his potassium has been maintained between 5.3 and 5.7. He is also had a significant weight gain and this is related to the amount of IV fluid he was given for his acute renal failure and it is not felt to be due to any cardiac component therefore no echo was obtained. Vital Signs - 24 hr Temp Pulse Resp BP Pulse Ox 12/24/17 10:38 97.6 F L 60 16 133/77 H 98 12/24/17 10:17 97.5 F L 56 L 16 126/70 H 98 12/24/17 09:09 62 12/24/17 07:31 97.5 F L 60 18 127/72 H 98 12/24/17 05:44 97.6 F L 60 18 128/71 H 96 12/24/17 05:33 60 128/71 H 12/23/17 21:13 97.5 F L 65 18 138/79 H 96 12/23/17 21:08 65 138/79 H 12/23/17 21:07 65 138/79 H 12/23/17 17:39 97.0 F L 60 18 123/71 H 96 12/23/17 14:19 68 General: Alert, Oriented x3, Cooperative, No apparent distress HEENT: Atraumatic, PERRLA, EOMI, Normocephalic Neck: Supple, No JVD, Negative Carotid Bruits Lungs: Clear to auscultation, Normal air movement Cardiovascular: Regular rate, Regular Rhythm, Normal S1, Normal S2, No murmurs Abdomen: Bowel Sounds Present, Soft, Non Tender, Non-Distended Extremities: No clubbing, No cyanosis, 2+ pitting edema b/l LE Capillary Refill Less than 3 Seconds Skin: No rashes, No breakdown Musculoskeletal: No Tenderness to Palpation of Joints or Extremities Inpatient E&M: 21819 Disch Hosp
--- NOTE | 2017-12-23 11:57 | DS.PCM_ITS ---
<Neida Fischer - Last Filed: 12/23/17 12:01> Discharge Date and Diagnosis Date of Admission: 12/15/17 Date of Discharge: 12/23/17 - Primary Discharge Diagnosis Active and Suspected Problems (Last Reviewed 11/16/17 @ 08:36 by Suzanne Ferris) 1. Acute anemia on chronic iron deficiency anemia, unclear etiology-renal and bone marrow biopsies pending at discharge. 2. Acute kidney injury 3. 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 Rich[employer] Tirfecta pericardial valve Aortic stenosis (Chronic) S/P valve replacement with 27mm [employer] Richi Trifecta pericardial valve; Atherosclerotic heart disease of burns paiute coronary artery without angina pectoris (Chronic) Hyperlipidemia (Chronic) Ventricular hypertrophy (Chronic) Hospital Course and Treatment Imaging Results: Diagnostic Data Renal Ultrasound 12/15/17 09:28 IMPRESSION: 1. Normal ultrasound of the kidneys. 2. The urinary bladder is not visualized. 3. Incidental note of gallstones and mild pericholecystic fluid. The gallbladder is partially contracted, precluding accurate evaluation of mural thickness. Acute cholecystitis is not excluded by this study, however. 4. Fatty infiltration of the liver. Electronically Signed: Christ Vela MD at 16:09 EDT , Service support , Chest X-Ray 12/16/17 09:16 IMPRESSION: Residual bibasilar infiltrates worse on the right side with the blunting of both costophrenic angles worse on the right side Electronically Signed: Yosvany Carlos MD at 11:10 EDT Tel [phone], Service support , Videofluoroscopic Swallow 12/17/17 13:30 IMPRESSION: Penetration and silent aspiration with ingestion of thin liquids. This improves with the chin tuck maneuver. The swallow study findings were discussed with the patient by the speech pathologist at the conclusion of the examination. Please see speech pathology report for more information and recommendations. Electronically Signed: Yosvany Carlos MD at 14:19 EDT Tel [phone], Service support , GI Bleed Scan Nuclear Medicine 12/22/17 08:30 IMPRESSION: 1. NEGATIVE 99m Tc ULTRATAG LABELED BLOOD POOL GASTROINTESTINAL BLEEDING EXAMINATION. 2. There is no definitive typical scintigraphic evidence of acute gastrointestinal hemorrhage on the current evaluation. Electronically Signed: Eliseo Santana DO at 10:44 EDT Tel , Service support , Biopsy CT 12/22/17 10:00 IMPRESSION: Successful CT guided bone marrow biopsy and aspirate of the posterior aspect of the left iliac bone., as described above. Electronically Signed: Yosvany Carlos MD at 11:30 EDT Tel [phone], Service support , Dr. Rizvi- Oncology Dr. Palmer- Nephrology Dr. Sanabria- General surgery Operations: None Procedures: Colonoscopy, EGD, - - Renal biopsy, bone marrow biopsy. Summary of Care Provided: The patient is a 62 year old M admitted 12/15/2017 due to shortness of breath and fatigue. 1. Acute anemia on chronic iron deficiency anemia-History of upper GI bleed. Stool + OB. Status post 5 units PRBC. Plt X2. Continue PPI twice daily. Continue to hold anticoagulation. EGD with Dr. Sanabria 12/18/2017 with no source of bleeding. Colonoscopy showed no bleeding source as well. Hematology following. Patient underwent RBC scan which was negative. Bone marrow biopsy completed and results pending. Hematology suspecting possible multiple myeloma? Further workup pending. Blood count stable. Patient will be discharged home with follow-up with oncology in 1 week. Follow-up with primary care physician in 1 week. Continue iron supplementation. 2. Acute kidney injury, unclear etiology-nephrology involved. Kidney biopsy results pending. Serologies pending. Follow-up with Dr. Palmer in 1 week, renal bx results should be available at that time. Patient started on prednisone 60 mg daily. This will be continued until further follow-up with oncology/nephrology. 3. Hyperkalemia-secondary to #2. Kayexalate x1. Repeat BMP in 3 days. 4. History of CVA with residual dysphagia-ST evaluation. Patient denies cough, fever/chills. No leukocytosis. Pneumonia initially suspected on admission due to chest x-ray which showed bibasilar infiltrates, worse on the right side. Urine for strep and Legionella negative. Sputum culture shows strep C. PNA ruled out. Continue dietary modifications per speech therapy recommendations. 5. Pancytopenia/thrombocytopenia-trend CBC. Plt given X2. 6. CAD s/p CABG-continue statin, metoprolol. Aspirin and Eliquis on hold. 7. Status post aortic valve replacement 8. Sick sinus syndrome status post pacemaker 9. Paroxysmal atrial fibrillation-continue metoprolol. Eliquis on hold secondary to #1. 10. Hypothyroidism-continue Synthroid. General: Alert, Oriented x3, Cooperative, No apparent distress HEENT: Atraumatic, PERRLA, EOMI, Normocephalic Neck: Supple, No JVD, Negative Carotid Bruits Lungs: Clear to auscultation, Normal air movement Cardiovascular: Regular rate, Regular Rhythm, Normal S1, Normal S2, No murmurs Abdomen: Bowel Sounds Present, Soft, Non Tender, Non-Distended Extremities: No clubbing, No cyanosis, No edema, Capillary Refill Less than 3 Seconds Skin: No rashes, No breakdown Musculoskeletal: No Tenderness to Palpation of Joints or Extremities Neurological: Cranial nerves II-XII grossly intact, Neuro grossly intact Psych/Mental Status: Normal Affect, Appropriate Patient seen exam prior to discharge. Physical assessment as noted above. Patient stable for discharge home with further follow-up recommendations as noted above. This patient was seen by FAYE Mathew under the supervision of Dr. Raines. Discharge Diet: - - Low potassium diet Discharge Activity: Return to Normal Activity Call your doctor if you observe: Fever of 101 or Higher, Shortness of breath, Dizziness, Fainting spells, Chest pain Home Medications: Medications to take at Discharge ascorbic acid (vitamin C) 500 mg capsule 500 mg PO QDAY ea 03/26/17 levothyroxine 200 mcg tablet 200 mcg PO QDAY tab 03/26/17 pantoprazole 40 mg tablet,delayed release 40 mg PO BID tab 03/26/17 cyanocobalamin (vit B-12) 500 mcg tablet 500 mcg PO QDAY 03/27/17 magnesium oxide 400 mg capsule 400 mg PO QDAY cap 05/18/17 multivitamin tablet 1 tab PO QDAY 05/18/17 metoprolol tartrate 25 mg tablet 12.5 mg PO BID tab 06/01/17 hydralazine 25 mg tablet 25 mg PO Q8H #90 tab 06/24/17 Acetaminophen [Tylenol] 500 mg PO Q4H PRN PRN 10/27/17 cholecalciferol (vitamin D3) 2,000 unit tablet 2,000 unit PO DAILY 11/16/17 atorvastatin 80 mg tablet 80 mg PO DAILY #90 tab 12/01/17 Ferrous Sulfate [Iron] 325 mg PO BID #60 tablet 12/23/17 Prednisone 60 mg PO DAILY #21 tablet 12/23/17 Following Prescrptions Were Given to Patient: Prednisone 60 mg PO DAILY #21 tablet Ferrous Sulfate [Iron] 325 mg PO BID #60 tablet Other Amb Orders: Basic Metabolic Profile (BMP) Time Frame: 3 Days, Location: Laboratory Primary Care Physician: Tapan Cuellar DO [Primary Care Provider] - Please follow up with your Primary Care Physician in: 1 Week Please Follow Up With: Surjit Rizvi MD - Or Vera Stanton When: Within one week Please Follow Up With: Shantal Palmer DO When: 1 Week Disposition: Home Minutes spent on discharge:: 35 Patient Condition:: Stable Medical Necessity - Tobacco Use Smoking Status: Current some day smoker Meaningful Use Info Meaningful Use Diagnoses (Choose all that apply): None applicable <Loki Raines - Last Filed: 12/24/17 11:13> Discharge Date and Diagnosis - Secondary Discharge Diagnosis Chronic Problems (Last Reviewed 11/16/17 @ 08:36 by Suzanne Ferris) Nicotine abuse (Chronic) Premature atrial contractions (Chronic) 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 Tirfecta pericardial valve Aortic stenosis (Chronic) S/P valve replacement with 27mm [employer]i Trifecta pericardial valve; Atherosclerotic heart disease of burns paiute coronary artery without angina pectoris (Chronic) Hyperlipidemia (Chronic) Ventricular hypertrophy (Chronic) Hospital Course and Treatment Summary of Care Provided: The patient is a 62 year old M [] Code Visit Addendum: Dr. Raines I personally examined the patient and reviewed the chart. I agree with the above. Mr. King is a 62-year-old male presenting with an acute onset renal failure. He also has acute on chronic anemia and he was transfused 6 units during his stay with no real adequate response. He has a history of a Elmer-en-Y gastric bypass and both EGD and colonoscopy during the stay were negative as was a red blood cell scan for his gastric remnant. Because of his anemia he was started on iron replacement as well as vitamin C because of the PPI he was mukesh arroyo. There has been a delay in obtaining pathology for his renal biopsy due to difficulty interpreting the biopsy, we have had 3 different pathologist examining the slides with no definitive conclusion. 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 Started on prednisone 60 mg. Related to his acute renal failure he was also hyperkalemic, and was given a dose of Kayexalate. During his stay here his potassium has been maintained between 5.3 and 5.7. He is also had a significant weight gain and this is related to the amount of IV fluid he was given for his acute renal failure and it is not felt to be due to any cardiac component therefore no echo was obtained. Vital Signs - 24 hr Temp Pulse Resp BP Pulse Ox 12/24/17 10:38 97.6 F L 60 16 133/77 H 98 12/24/17 10:17 97.5 F L 56 L 16 126/70 H 98 10/04/18 09:09 62 12/24/17 07:31 97.5 F L 60 18 127/72 H 98 12/24/17 05:44 97.6 F L 60 18 128/71 H 96 12/24/17 05:33 60 128/71 H 12/23/17 21:13 97.5 F L 65 18 138/79 H 96 12/23/17 21:08 65 138/79 H 12/23/17 21:07 65 138/79 H 12/23/17 17:39 97.0 F L 60 18 123/71 H 96 12/23/17 14:19 68 General: Alert, Oriented x3, Cooperative, No apparent distress HEENT: Atraumatic, PERRLA, EOMI, Normocephalic Neck: Supple, No JVD, Negative Carotid Bruits Lungs: Clear to auscultation, Normal air movement Cardiovascular: Regular rate, Regular Rhythm, Normal S1, Normal S2, No murmurs Abdomen: Bowel Sounds Present, Soft, Non Tender, Non-Distended Extremities: No clubbing, No cyanosis, 2+ pitting edema b/l LE Capillary Refill Less than 3 Seconds Skin: No rashes, No breakdown Musculoskeletal: No Tenderness to Palpation of Joints or Extremities Inpatient E&M: 61047 Disch Hosp
--- NOTE | 2017-12-23 15:05 | CASEMGMT ---
ISREAL was asked to talk with patient and his mom. ISREAL met with patient and his mom, introduced self and role at [facility]. Patient's mom expressed frustrations with patient's care and discharge being uncoordinated. Apparently there were several doctors seeing him while he was here. She feels they are not communicating as two prescriptions for the same medication were sent to the pharmacy by two different doctors. Patient is frustrated as he has not even been diagnosed with anything because they are waiting on tests to come back. She said he has all these physicians she needs to follow up with. ISREAL told them that the RN CM's have a system where based on diagnoses and several other factors if a patient has a score above a certain number the radioactivity technician will make the appointments. ISREAL told them SW can check this out and ask the RN about the medication mix up. ISREAL spoke with bal the RN and she has already worked out the medication question and she was on the phone with the pharmacy to let them know. SW looked and patient does not have a high lace score so radioactivity technician will not make the appts. Bal said that they did make his appt with the [facility] Worker Helper as it needed to be next week. This appt is Dec 30 at 2p. SW went back to the room and explained this information to patient and his mom. They expressed frustration and SW provided emotional support. ISREAL offered to give them the patient advocate phone number and they declined stating, I will call Pasquale Solano. ISREAL asked if there was anything else SW could help with and sorry that SW did not have more answers. They declined needing anything else. Tracey MOREL MSW
--- NOTE | 2017-12-23 15:56 | CASEMGMT ---
SW spoke with family per their request. They expressed some concerns with patient's hospital stay. SW provided emotional support. SW offered the patient advocate number and they declined. Tracey MOREL MSW
--- NOTE | 2017-12-23 16:14 | PCM.PROGNOTE ---
<Neida Fischer - Last Filed: 12/23/17 16:20> Subjective: Discharge planned earlier today. Patient concerned about weight gain while putting on clothing prior to discharge. Weight reported to be 234 from 12/15/17-12/22/17. Weight completed prior to discharge and documented at 253lb? Will keep patient overnight and repeat labs in a.m. Discussed with nephrology. - Physical Exam General: Alert, Oriented x3, Cooperative HEENT: Atraumatic, PERRLA, EOMI, Normocephalic Neck: Supple, No JVD, Negative Carotid Bruits Lungs: Clear to auscultation, Normal air movement Cardiovascular: Regular rate, Regular Rhythm, Normal S1, Normal S2, No murmurs Abdomen: Bowel Sounds Present, Soft, Non Tender, Non-Distended Extremities: No clubbing, No cyanosis, No edema, Capillary Refill Less than 3 Seconds Skin: No rashes, No breakdown Musculoskeletal: No Tenderness to Palpation of Joints or Extremities Neurological: Cranial nerves II-XII grossly intact, Neuro grossly intact Psych/Mental Status: Normal Affect, Appropriate Vital Signs Temp Pulse Resp BP Pulse Ox 98.6 F 68 16 134/79 H 95 12/23/17 08:27 12/23/17 14:19 12/23/17 08:27 12/23/17 08:27 12/23/17 08:27 Oxygen Flow Rate (L/min) [6] 4 Oxygen Flow Rate (L/min) [5] 4 Oxygen Flow Rate (L/min) [4] 4 Oxygen Flow Rate (L/min) [3] 4 Oxygen Flow Rate (L/min) [2] 4 Oxygen Flow Rate (L/min) [1 ( 2 Initial Baseline)] Oxygen Flow Rate (L/min) 2 Oxygen Delivery Method [6] Nasal Cannula Oxygen Delivery Method [5] Nasal Cannula Oxygen Delivery Method [4] Nasal Cannula Oxygen Delivery Method [3] Nasal Cannula Oxygen Delivery Method [2] Nasal Cannula Oxygen Delivery Method [1 ( Nasal Cannula Initial Baseline)] Oxygen Delivery Method Room Air Weight: 253 lb 1.451 oz Body Mass Index (BMI) 28.5 Finger Stick Blood Glucose 82 Intake and Output for Last 24 Hours 12/21/17 12/22/17 12/23/17 23:59 23:59 23:59 Intake Total 2668 / 2668 1307 / 1307 2353 / 2353 Output Total 975 / 975 1005 / 1005 1625 / 1625 Balance 1693 / 1693 302 / 302 728 / 728 Microbiology Past 72 Hours 12/16/17 05:00 Blood Culture - Final Blood Culture (Wb) - Right Hand No growth in 5 days. 12/16/17 05:00 Blood Culture - Final Blood Culture (Wb) - Anticubital Left No growth in 5 days. Laboratory Tests Past 24 Hrs 12/20/17 12/23/17 12/23/17 05:30 05:20 05:20 WBC 3.9 L RBC 2.62 L Hgb 8.4 L Hct 26.1 L MCV 99.6 H MCH 32.1 H MCHC 32.2 RDW 20.0 H RDW Differential 70.6 H Plt Count 84 L MPV 10.4 Differential Comment SCANNED Sodium 141 Potassium 5.6 H Chloride 119 H Carbon Dioxide 17.0 L Anion Gap 5 BUN 60 H Creatinine 3.71 H Estim Creat Clear Calc 25.67 Est GFR (MDRD) Af Amer 22 L Est GFR (MDRD) Non-Af 18 L BUN/Creatinine Ratio 16.2 Glucose 83 Calcium 7.8 L Magnesium Total Protein (PEP) 7.0 IgG 3273 H IgA 349 IgM 159 Immunofixation Screen Comment: Albumin (EDISON) 2.4 L Albumin/Globulin (EDISON) 0.6 L Cbcvi-4-Xpktluskr EDISON 0.2 Jsyyc-2-Snkimjonf EDISON 0.5 Beta-Globulins (EDISON) 0.7 Gamma Globulins (EDISON) 4.6 H EDISON M-Vivek EDISON Comments Comment Urine Immunofixation Complement C3 64 L Complement C4 17 Free Minerva LC, Quant 402.7 H Free Lambda LC, Quant 378.8 H Free Minerva/Lambda Ratio 1.06 12/23/17 12/23/17 05:20 07:20 WBC RBC Hgb Hct MCV MCH MCHC RDW RDW Differential Plt Count MPV Differential Comment Sodium Potassium Chloride Carbon Dioxide Anion Gap BUN Creatinine Estim Creat Clear Calc Est GFR (MDRD) Af Amer Est GFR (MDRD) Non-Af BUN/Creatinine Ratio Glucose Calcium Magnesium 2.0 Total Protein (PEP) IgG IgA IgM Immunofixation Screen Albumin (EDISON) Albumin/Globulin (EDISON) Yhygx-5-Obowdghru EDISON Rweok-2-Ekrjsfqgp EDISON Beta-Globulins (EDISON) Gamma Globulins (EDISON) EDISON M-Vivek EDISON Comments Urine Immunofixation Pending Complement C3 Complement C4 Free Minerva LC, Quant Free Lambda LC, Quant Free Minerva/Lambda Ratio Medical Necessity - Tobacco Use Smoking Status: Current some day smoker Assessment/Plan All Active Problems (Last Reviewed 11/16/17 @ 08:36 by Suzanne Ferris) Acute on chronic anemia (Acute) Hyperglobulinemia (Acute) Pancytopenia (Acute) GI bleed (Acute) ARF (acute renal failure) (Acute) Acute CVA (cerebrovascular accident) (Acute 10/27/17) 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) Atrial fibrillation (Acute) Sinus bradycardia (Acute) SOB (shortness of breath) (Acute) Atrioventricular block, type I (Acute) Premature ventricular contraction (Acute) Abnormal EKG (Acute) Bruit of left carotid artery (Acute) 1. Acute anemia on chronic iron deficiency anemia-History of upper GI bleed. Stool + OB. Status post 5 units PRBC. Plt X2. Continue PPI twice daily. Continue to hold anticoagulation. EGD with Dr. Sanabria 12/18/2017 with no source of bleeding. Colonoscopy showed no bleeding source as well. Hematology following. Patient underwent RBC scan which was negative. Bone marrow biopsy completed and results pending. Hematology suspecting possible multiple myeloma? Further workup pending. Blood count stable. Patient is to follow up with oncology in 1 week. 2. Acute kidney injury, unclear etiology-nephrology involved. Kidney biopsy results pending. Patient started on prednisone 60 mg daily. This will be continued until further follow-up with oncology/nephrology. 3. Hyperkalemia-secondary to #2. Repeat Kayexalate. Trend BMP. 4. History of CVA with residual dysphagia-ST evaluation. Patient denies cough, fever/chills. No leukocytosis. Pneumonia initially suspected on admission due to chest x-ray which showed bibasilar infiltrates, worse on the right side. Urine for strep and Legionella negative. Sputum culture shows strep C. PNA ruled out. Continue dietary modifications per speech therapy recommendations. 5. Pancytopenia/thrombocytopenia-trend CBC. Plt given X2. 6. CAD s/p CABG-continue statin, metoprolol. Aspirin and Eliquis on hold. 7. Status post aortic valve replacement 8. Sick sinus syndrome status post pacemaker 9. Paroxysmal atrial fibrillation-continue metoprolol. Eliquis on hold secondary to #1. 10. Hypothyroidism-continue Synthroid. DVT prophylaxis-SCDs. This patient was seen by FAYE Mathew under the supervision of Dr. Raines. <Loki Raines F - Last Filed: 12/23/17 16:56> - Physical Exam Vital Signs Temp Pulse Resp BP Pulse Ox 98.6 F 68 16 134/79 H 95 12/23/17 08:27 12/23/17 14:19 12/23/17 08:27 12/23/17 08:27 12/23/17 08:27 Oxygen Flow Rate (L/min) [6] 4 Oxygen Flow Rate (L/min) [5] 4 Oxygen Flow Rate (L/min) [4] 4 Oxygen Flow Rate (L/min) [3] 4 Oxygen Flow Rate (L/min) [2] 4 Oxygen Flow Rate (L/min) [1 ( 2 Initial Baseline)] Oxygen Flow Rate (L/min) 2 Oxygen Delivery Method [6] Nasal Cannula Oxygen Delivery Method [5] Nasal Cannula Oxygen Delivery Method [4] Nasal Cannula Oxygen Delivery Method [3] Nasal Cannula Oxygen Delivery Method [2] Nasal Cannula Oxygen Delivery Method [1 ( Nasal Cannula Initial Baseline)] Oxygen Delivery Method Room Air Weight: 253 lb 1.451 oz Body Mass Index (BMI) 28.5 Finger Stick Blood Glucose 82 Intake and Output for Last 24 Hours 12/21/17 12/22/17 12/23/17 23:59 23:59 23:59 Intake Total 2668 / 2668 1307 / 1307 2353 / 2353 Output Total 975 / 975 1005 / 1005 1625 / 1625 Balance 1693 / 1693 302 / 302 728 / 728 Microbiology Past 72 Hours 12/16/17 05:00 Blood Culture - Final Blood Culture (Wb) - Right Hand No growth in 5 days. 12/16/17 05:00 Blood Culture - Final Blood Culture (Wb) - Anticubital Left No growth in 5 days. Laboratory Tests Past 24 Hrs 12/20/17 12/23/17 12/23/17 05:30 05:20 05:20 WBC 3.9 L RBC 2.62 L Hgb 8.4 L Hct 26.1 L MCV 99.6 H MCH 32.1 H MCHC 32.2 RDW 20.0 H RDW Differential 70.6 H Plt Count 84 L MPV 10.4 Differential Comment SCANNED Sodium 141 Potassium 5.6 H Chloride 119 H Carbon Dioxide 17.0 L Anion Gap 5 BUN 60 H Creatinine 3.71 H Estim Creat Clear Calc 25.67 Est GFR (MDRD) Af Amer 22 L Est GFR (MDRD) Non-Af 18 L BUN/Creatinine Ratio 16.2 Glucose 83 Calcium 7.8 L Magnesium Total Protein (PEP) 7.0 IgG 3273 H IgA 349 IgM 159 Immunofixation Screen Comment: Albumin (EDISON) 2.4 L Albumin/Globulin (EDISON) 0.6 L Xkztj-0-Wmkdovygn EDISON 0.2 Bjmdz-7-Djmwckzdu EDISON 0.5 Beta-Globulins (EDISON) 0.7 Gamma Globulins (EDISON) 4.6 H EDISON M-Vivek EDISON Comments Comment Urine Immunofixation Complement C3 64 L Complement C4 17 Free Minerva LC, Quant 402.7 H Free Lambda LC, Quant 378.8 H Free Minerva/Lambda Ratio 1.06 12/23/17 12/23/17 05:20 07:20 WBC RBC Hgb Hct MCV MCH MCHC RDW RDW Differential Plt Count MPV Differential Comment Sodium Potassium Chloride Carbon Dioxide Anion Gap BUN Creatinine Estim Creat Clear Calc Est GFR (MDRD) Af Amer Est GFR (MDRD) Non-Af BUN/Creatinine Ratio Glucose Calcium Magnesium 2.0 Total Protein (PEP) IgG IgA IgM Immunofixation Screen Albumin (EDISON) Albumin/Globulin (EDISON) Taueh-5-Ojlzzlrrb EDISON Pmxwx-9-Iufcawjkr EDISON Beta-Globulins (EDISON) Gamma Globulins (EDISON) EDISON M-Vivek EDISON Comments Urine Immunofixation Pending Complement C3 Complement C4 Free Minerva LC, Quant Free Lambda LC, Quant Free Minerva/Lambda Ratio Code Visit Addendum: Dr. Raines I personally examined the patient and reviewed the chart. I agree with the above. Riana is a 62-year-old male with a history of gastric bypass presenting with chronic anemia, Hemoccult positive stools, acute onset renal failure, and hyperkalemia. He has had both colonoscopy and an EGD both were negative for an acute bleed. When his gastric bypass a red blood cell tag scan was also performed to evaluate the gastric remnant which was also negative for an acute bleed. Currently hematology and nephrology are ruling out multiple myeloma. Renal biopsy and bone marrow aspirate pathology are pending. SPEP UPEP are also pending. Renal function has stabilized and he is making urine. Inpatient E&M: 37660 Subs Hosp L2
--- NOTE | 2017-12-23 16:20 | PN_ITS ---
<Neida Fischer - Last Filed: 12/23/17 16:20> Subjective: Discharge planned earlier today. Patient concerned about weight gain while putting on clothing prior to discharge. Weight reported to be 234 from 12/15/17- 12/22/17. Weight completed prior to discharge and documented at 253lb? Will keep patient overnight and repeat labs in a.m. Discussed with nephrology. - Physical Exam General: Alert, Oriented x3, Cooperative HEENT: Atraumatic, PERRLA, EOMI, Normocephalic Neck: Supple, No JVD, Negative Carotid Bruits Lungs: Clear to auscultation, Normal air movement Cardiovascular: Regular rate, Regular Rhythm, Normal S1, Normal S2, No murmurs Abdomen: Bowel Sounds Present, Soft, Non Tender, Non-Distended Extremities: No clubbing, No cyanosis, No edema, Capillary Refill Less than 3 Seconds Skin: No rashes, No breakdown Musculoskeletal: No Tenderness to Palpation of Joints or Extremities Neurological: Cranial nerves II-XII grossly intact, Neuro grossly intact Psych/Mental Status: Normal Affect, Appropriate Vital Signs Temp Pulse Resp BP Pulse Ox 98.6 F 68 16 134/79 H 95 12/23/17 08:27 12/23/17 14:19 12/23/17 08:27 12/23/17 08:27 12/23/17 08:27 Oxygen Flow Rate (L/min) [6] 4 Oxygen Flow Rate (L/min) [5] 4 Oxygen Flow Rate (L/min) [4] 4 Oxygen Flow Rate (L/min) [3] 4 Oxygen Flow Rate (L/min) [2] 4 Oxygen Flow Rate (L/min) [1 ( 2 Initial Baseline)] Oxygen Flow Rate (L/min) 2 Oxygen Delivery Method [6] Nasal Cannula Oxygen Delivery Method [5] Nasal Cannula Oxygen Delivery Method [4] Nasal Cannula Oxygen Delivery Method [3] Nasal Cannula Oxygen Delivery Method [2] Nasal Cannula Oxygen Delivery Method [1 ( Nasal Cannula Initial Baseline)] Oxygen Delivery Method Room Air Weight: 253 lb 1.451 oz Body Mass Index (BMI) 28.5 Finger Stick Blood Glucose 82 Intake and Output for Last 24 Hours 12/21/17 12/22/17 12/23/17 23:59 23:59 23:59 Intake Total 2668 / 2668 1307 / 1307 2353 / 2353 Output Total 975 / 975 1005 / 1005 1625 / 1625 Balance 1693 / 1693 302 / 302 728 / 728 Microbiology Past 72 Hours 12/16/17 05:00 Blood Culture - Final Blood Culture (Wb) - Right Hand No growth in 5 days. 12/16/17 05:00 Blood Culture - Final Blood Culture (Wb) - Anticubital Left No growth in 5 days. Laboratory Tests Past 24 Hrs 12/20/17 12/23/17 12/23/17 05:30 05:20 05:20 WBC 3.9 L RBC 2.62 L Hgb 8.4 L Hct 26.1 L MCV 99.6 H MCH 32.1 H MCHC 32.2 RDW 20.0 H RDW Differential 70.6 H Plt Count 84 L MPV 10.4 Differential Comment SCANNED Sodium 141 Potassium 5.6 H Chloride 119 H Carbon Dioxide 17.0 L Anion Gap 5 BUN 60 H Creatinine 3.71 H Estim Creat Clear Calc 25.67 Est GFR (MDRD) Af Amer 22 L Est GFR (MDRD) Non-Af 18 L BUN/Creatinine Ratio 16.2 Glucose 83 Calcium 7.8 L Magnesium Total Protein (PEP) 7.0 IgG 3273 H IgA 349 IgM 159 Immunofixation Screen Comment: Albumin (EDISON) 2.4 L Albumin/Globulin (EDISON) 0.6 L Zymwx-5-Ibvpukohl EDISON 0.2 Tldww-8-Myytquprt EDISON 0.5 Beta-Globulins (EDISON) 0.7 Gamma Globulins (EDISON) 4.6 H EDISON M-Vivek EDISON Comments Comment Urine Immunofixation Complement C3 64 L Complement C4 17 Free [place] LC, Quant 402.7 H Free Lambda LC, Quant 378.8 H Free [place]/Lambda Ratio 1.06 12/23/17 12/23/17 05:20 07:20 WBC RBC Hgb Hct MCV MCH MCHC RDW RDW Differential Plt Count MPV Differential Comment Sodium Potassium Chloride Carbon Dioxide Anion Gap BUN Creatinine Estim Creat Clear Calc Est GFR (MDRD) Af Amer Est GFR (MDRD) Non-Af BUN/Creatinine Ratio Glucose Calcium Magnesium 2.0 Total Protein (PEP) IgG IgA IgM Immunofixation Screen Albumin (EDISON) Albumin/Globulin (EDISON) Byfwp-9-Xldomxgfc EDISON Ivope-2-Vplnokwyt EDISON Beta-Globulins (EDISON) Gamma Globulins (EDISON) EDISON M-Vivek EDISON Comments Urine Immunofixation Pending Complement C3 Complement C4 Free [place] LC, Quant Free Lambda LC, Quant Free [place]/Lambda Ratio Medical Necessity - Tobacco Use Smoking Status: Current some day smoker Assessment/Plan All Active Problems (Last Reviewed 11/16/17 @ 08:36 by Suzanne Ferris) Acute on chronic anemia (Acute) Hyperglobulinemia (Acute) Pancytopenia (Acute) GI bleed (Acute) ARF (acute renal failure) (Acute) Acute CVA (cerebrovascular accident) (Acute 10/27/17) 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) Atrial fibrillation (Acute) Sinus bradycardia (Acute) SOB (shortness of breath) (Acute) Atrioventricular block, type I (Acute) Premature ventricular contraction (Acute) Abnormal EKG (Acute) Bruit of left carotid artery (Acute) 1. Acute anemia on chronic iron deficiency anemia-History of upper GI bleed. Stool + OB. Status post 5 units PRBC. Plt X2. Continue PPI twice daily. Continue to hold anticoagulation. EGD with Dr. Sanabria 12/18/2017 with no source of bleeding. Colonoscopy showed no bleeding source as well. Hematology following. Patient underwent RBC scan which was negative. Bone marrow biopsy completed and results pending. Hematology suspecting possible multiple myeloma? Further workup pending. Blood count stable. Patient is to follow up with oncology in 1 week. 2. Acute kidney injury, unclear etiology-nephrology involved. Kidney biopsy results pending. Patient started on prednisone 60 mg daily. This will be continued until further follow-up with oncology/nephrology. 3. Hyperkalemia-secondary to #2. Repeat Kayexalate. Trend BMP. 4. History of CVA with residual dysphagia-ST evaluation. Patient denies cough, fever/chills. No leukocytosis. Pneumonia initially suspected on admission due to chest x-ray which showed bibasilar infiltrates, worse on the right side. Urine for strep and Legionella negative. Sputum culture shows strep C. PNA ruled out. Continue dietary modifications per speech therapy recommendations. 5. Pancytopenia/thrombocytopenia-trend CBC. Plt given X2. 6. CAD s/p CABG-continue statin, metoprolol. Aspirin and Eliquis on hold. 7. Status post aortic valve replacement 8. Sick sinus syndrome status post pacemaker 9. Paroxysmal atrial fibrillation-continue metoprolol. Eliquis on hold secondary to #1. 10. Hypothyroidism-continue Synthroid. DVT prophylaxis-SCDs. This patient was seen by FAYE Mathew under the supervision of Dr. Raines. <Loki Raines F - Last Filed: 12/23/17 16:56> - Physical Exam Vital Signs Temp Pulse Resp BP Pulse Ox 98.6 F 68 16 134/79 H 95 12/23/17 08:27 12/23/17 14:19 12/23/17 08:27 12/23/17 08:27 12/23/17 08:27 Oxygen Flow Rate (L/min) [6] 4 Oxygen Flow Rate (L/min) [5] 4 Oxygen Flow Rate (L/min) [4] 4 Oxygen Flow Rate (L/min) [3] 4 Oxygen Flow Rate (L/min) [2] 4 Oxygen Flow Rate (L/min) [1 ( 2 Initial Baseline)] Oxygen Flow Rate (L/min) 2 Oxygen Delivery Method [6] Nasal Cannula Oxygen Delivery Method [5] Nasal Cannula Oxygen Delivery Method [4] Nasal Cannula Oxygen Delivery Method [3] Nasal Cannula Oxygen Delivery Method [2] Nasal Cannula Oxygen Delivery Method [1 ( Nasal Cannula Initial Baseline)] Oxygen Delivery Method Room Air Weight: 253 lb 1.451 oz Body Mass Index (BMI) 28.5 Finger Stick Blood Glucose 82 Intake and Output for Last 24 Hours 12/21/17 12/22/17 12/23/17 23:59 23:59 23:59 Intake Total 2668 / 2668 1307 / 1307 2353 / 2353 Output Total 975 / 975 1005 / 1005 1625 / 1625 Balance 1693 / 1693 302 / 302 728 / 728 Microbiology Past 72 Hours 12/16/17 05:00 Blood Culture - Final Blood Culture (Wb) - Right Hand No growth in 5 days. 12/16/17 05:00 Blood Culture - Final Blood Culture (Wb) - Anticubital Left No growth in 5 days. Laboratory Tests Past 24 Hrs 12/20/17 12/23/17 12/23/17 05:30 05:20 05:20 WBC 3.9 L RBC 2.62 L Hgb 8.4 L Hct 26.1 L MCV 99.6 H MCH 32.1 H MCHC 32.2 RDW 20.0 H RDW Differential 70.6 H Plt Count 84 L MPV 10.4 Differential Comment SCANNED Sodium 141 Potassium 5.6 H Chloride 119 H Carbon Dioxide 17.0 L Anion Gap 5 BUN 60 H Creatinine 3.71 H Estim Creat Clear Calc 25.67 Est GFR (MDRD) Af Amer 22 L Est GFR (MDRD) Non-Af 18 L BUN/Creatinine Ratio 16.2 Glucose 83 Calcium 7.8 L Magnesium Total Protein (PEP) 7.0 IgG 3273 H IgA 349 IgM 159 Immunofixation Screen Comment: Albumin (EDISON) 2.4 L Albumin/Globulin (EDISON) 0.6 L Sejgs-2-Jpayykazn EDISON 0.2 Eabrm-5-Qdexfsidj EDISON 0.5 Beta-Globulins (EDISON) 0.7 Gamma Globulins (EDISON) 4.6 H EDISON M-Vivek EDISON Comments Comment Urine Immunofixation Complement C3 64 L Complement C4 17 Free [place] LC, Quant 402.7 H Free Lambda LC, Quant 378.8 H Free [place]/Lambda Ratio 1.06 12/23/17 12/23/17 05:20 07:20 WBC RBC Hgb Hct MCV MCH MCHC RDW RDW Differential Plt Count MPV Differential Comment Sodium Potassium Chloride Carbon Dioxide Anion Gap BUN Creatinine Estim Creat Clear Calc Est GFR (MDRD) Af Amer Est GFR (MDRD) Non-Af BUN/Creatinine Ratio Glucose Calcium Magnesium 2.0 Total Protein (PEP) IgG IgA IgM Immunofixation Screen Albumin (EDISON) Albumin/Globulin (EDISON) Hdpcy-2-Pwwdihqqt EDISON Iplus-0-Cvbcgwpxc EDISON Beta-Globulins (EDISON) Gamma Globulins (EDISON) EDISON M-Vivek EDISON Comments Urine Immunofixation Pending Complement C3 Complement C4 Free [place] LC, Quant Free Lambda LC, Quant Free [place]/Lambda Ratio Code Visit Addendum: Dr. Raines I personally examined the patient and reviewed the chart. I agree with the above. Riana is a 62-year-old male with a history of gastric bypass presenting with chronic anemia, Hemoccult positive stools, acute onset renal failure, and hyperkalemia. He has had both colonoscopy and an EGD both were neg ative for an acute bleed. When his gastric bypass a red blood cell tag scan was also performed to evaluate the gastric remnant which was also negative for an acute bleed. Currently hematology and nephrology are ruling out multiple myeloma. Renal biopsy and bone marrow aspirate pathology are pending. SPEP UPEP are also pending. Renal function has stabilized and he is making urine. Inpatient E&M: 49416 Subs Hosp L2
[2017-12-23] MEDS: Sodium Polystyrene Sulfonate 15 GM/60 ML UDC 30 GM PO (17:42)
[2017-12-23] MEDS: Atorvastatin Calcium 80 MG Tablet PO (21:08)
[2017-12-24] VITALS (7 sets, daily range): BP systolic 126–147; BP diastolic 70–87; PULSE 56–66; RESP 16–18; TEMP 36.3–36.4; O2SAT 96–98
[2017-12-24] MEDS: hydrALAZINE 25 MG Tablet PO (05:33)
[2017-12-24] MEDS: Levothyroxine 100 MCG Tablet 200 MCG PO (05:34)
[2017-12-24 06:23] LABS: Albumin, Serum 1.9 g/dL (3.2-5.0); BUN 61 mg/dL (7-18); Calcium,Total 7.9 mg/dL (8.5-10.1); Chloride 118 mmol/L (98-107); Creatinine, Serum 4.07 mg/dL (0.70-1.30); EST Glomerular Filtration Rate 16 mL/min (>60); Est Glom Filt Rate - Afr Amer 19 mL/min (>60); Glucose 110 mg/dL (74-106); Phosphorus 5.5 mg/dL (2.5-4.9); Potassium 5.3 mmol/L (3.5-5.1); Sodium Level 141 mmol/L (136-145)
[2017-12-24 06:33] LABS: Hematocrit 24.6 % (40-54); Hemoglobin 7.8 g/dl (13.0-16.5); Mean Corp Hgb Conc 31.7 g/gl (32-36); Mean Corpuscular Hgb 31.5 pg (27.0-32.0); Mean Corpuscular Volume 99.2 fL (80-94); Mean Platelet Vol. 10.2 fl (6.2-12.0); Platelet Count 80 K/mm3 (150-450); RBC Distribution Width CV 19.4 % (11.6-14.6); RBC Distribution Width SD 68.1 fl (35.1-43.9); Red Blood Count 2.48 M/mm3 (4.6-6.2); White Blood Count 3.2 K/mm3 (4.4-11.0)
[2017-12-24 06:42] LABS: Scan Indicated on CBC? Y/N YES- FLAGS NOTED
[2017-12-24 06:52] LABS: Differential Comment SCANNED
[2017-12-24] MEDS: Multivitamins,Therapeutic Tablet 1 TABLET PO (07:36)
[2017-12-24] MEDS: predniSONE 20 MG Tablet 60 MG PO (07:36)
[2017-12-24] MEDS: Metoprolol Tartrate 25 MG Tablet 12.5 MG PO (09:09)
[2017-12-24] MEDS: Magnesium Oxide 400 MG Tablet PO (09:11)
[2017-12-24] MEDS: Pantoprazole Sodium 40 MG Tablet PO (09:11)
[2017-12-24] MEDS: Cyanocobalamin 500 MCG Tablet PO (09:11)
[2017-12-24] MEDS: Ascorbic Acid 500 MG Tablet PO (09:11)
--- NOTE | 2017-12-24 10:17 | PCM.PN.REN ---
Subjective: Pt with no change in breathing. Remains weak. Has mild leg swelling. Albumin low at 1.9. Hgb low at 7.8g. Will transfuse 1unit prbc. Discussed with pt re transfer to [facility]. [facility] with [facility]. [place] stain pending. Discussed with hematology who does not think pt has myeloma. 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 treatment of choice for C3 glomerulopathy is eculizumab that is difficult to obtain. Spoke with F nephrology who is willing to continue evaluation and treatment with transfer. - Physical Exam General: Alert, Oriented x3, Cooperative, - - weak Lungs: Clear to auscultation, Diminished Cardiovascular: Regular rate, No rub noted Abdomen: Bowel Sounds Present, Soft, Non Tender, Non-Distended Extremities: Edema - mild ankle Skin: No rashes Musculoskeletal: No Muscle Wasting Psych/Mental Status: Alert and oriented to time, place, person, mood and affect Vital Signs Temp Pulse Resp BP Pulse Ox 97.5 F L 62 18 127/72 H 98 12/24/17 07:31 12/24/17 09:09 12/24/17 07:31 12/24/17 07:31 12/24/17 07:31 Oxygen Flow Rate (L/min) [6] 4 Oxygen Flow Rate (L/min) [5] 4 Oxygen Flow Rate (L/min) [4] 4 Oxygen Flow Rate (L/min) [3] 4 Oxygen Flow Rate (L/min) [2] 4 Oxygen Flow Rate (L/min) [1 ( 2 Initial Baseline)] Oxygen Flow Rate (L/min) 2 Oxygen Delivery Method [6] Nasal Cannula Oxygen Delivery Method [5] Nasal Cannula Oxygen Delivery Method [4] Nasal Cannula Oxygen Delivery Method [3] Nasal Cannula Oxygen Delivery Method [2] Nasal Cannula Oxygen Delivery Method [1 ( Nasal Cannula Initial Baseline)] Oxygen Delivery Method Room Air Weight: 114.714 kg Body Mass Index (BMI) 28.5 Finger Stick Blood Glucose 82 Intake and Output for Last 24 Hours 12/22/17 12/23/17 12/24/17 23:59 23:59 23:59 Intake Total 1307 / 1307 2353 / 2353 100 / 100 Output Total 1005 / 1005 1735 / 1735 500 / 500 Balance 302 / 302 618 / 618 -400 / -400 Microbiology Past 72 Hours 12/16/17 05:00 Blood Culture - Final Blood Culture (Wb) - Right Hand No growth in 5 days. 12/16/17 05:00 Blood Culture - Final Blood Culture (Wb) - Anticubital Left No growth in 5 days. Laboratory Tests Past 24 Hrs 12/20/17 12/23/17 12/24/17 05:30 05:20 05:05 WBC 3.2 L RBC 2.48 L Hgb 7.8 L Hct 24.6 L MCV 99.2 H MCH 31.5 MCHC 31.7 L RDW 19.4 H RDW Differential 68.1 H Plt Count 80 L MPV 10.2 Differential Comment SCANNED Sodium Potassium Chloride Carbon Dioxide BUN Creatinine Estim Creat Clear Calc Est GFR (MDRD) Af Amer Est GFR (MDRD) Non-Af BUN/Creatinine Ratio Glucose Calcium Phosphorus Magnesium 2.0 Total Protein (PEP) 7.0 Albumin IgG 3273 H IgA 349 IgM 159 Immunofixation Screen Comment: Albumin (EDISON) 2.4 L Albumin/Globulin (EDISON) 0.6 L Vugrx-4-Axiftagow EDISON 0.2 Rvjru-0-Dyqoeqhdn EDISON 0.5 Beta-Globulins (EDISON) 0.7 Gamma Globulins (EDISON) 4.6 H EDISON M-Vivek EDISON Comments Comment Complement C3 64 L Complement C4 17 Free [place] LC, Quant 402.7 H Free Lambda LC, Quant 378.8 H Free [place]/Lambda Ratio 1.06 Blood Type Antibody Screen Crossmatch 12/24/17 12/24/17 05:05 08:50 WBC RBC Hgb Hct MCV MCH MCHC RDW RDW Differential Plt Count MPV Differential Comment Sodium 141 Potassium 5.3 H Chloride 118 H Carbon Dioxide 17.0 L BUN 61 H Creatinine 4.07 H Estim Creat Clear Calc 23.40 Est GFR (MDRD) Af Amer 19 L Est GFR (MDRD) Non-Af 16 L BUN/Creatinine Ratio 15.0 Glucose 110 H Calcium 7.9 L Phosphorus 5.5 H Magnesium Total Protein (PEP) Albumin 1.9 L IgG IgA IgM Immunofixation Screen Albumin (EDISON) Albumin/Globulin (EDISON) Apipp-1-Dtzmdoybh EDISON Bbnrq-4-Kkbczrffy EDISON Beta-Globulins (EDISON) Gamma Globulins (EDISON) EDISON M-Vivek EDISON Comments Complement C3 Complement C4 Free [place] LC, Quant Free Lambda LC, Quant Free [place]/Lambda Ratio Blood Type A POSITIVE Antibody Screen NEGATIVE Crossmatch See Detail Medical Necessity - Tobacco Use Smoking Status: Current some day smoker Assessment/Plan All Active Problems (Last Reviewed 11/16/17 @ 08:36 by Suzanne Ferris) Acute on chronic anemia (Acute) Hyperglobulinemia (Acute) Pancytopenia (Acute) GI bleed (Acute) ARF (acute renal failure) (Acute) Acute CVA (cerebrovascular accident) (Acute 10/27/17) 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) Atrial fibrillation (Acute) Sinus bradycardia (Acute) SOB (shortness of breath) (Acute) Atrioventricular block, type I (Acute) Premature ventricular contraction (Acute) Abnormal EKG (Acute) Bruit of left carotid artery (Acute) 1. IRINA baseline creatinine 0.99 in October increased to 4.2 on admission to 3.8 today. + Proteinuria 2.3g, CrCl 27cc/min on 24h urine. Reviewed prelim renal biopsy results with pathology IF positive for C3 and C1Q in mesangium, seronegative ANDREZ. SPEP asymmetric gamma, UPEP monoclonal protein but kappa/lambda ratio normal with 1+ staining on IF of renal biopsy. C3 low with normal C4. EM no subepithelial deposits. Final path report pending. [place] stain pending. Initiated prednisone 60mg daily. 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 Contacted nephrology dept at [facility] regarding transfer. 2. Profound anemia, pancytopenia. PRBC today 3. Hx GI bleed, min-en-y on PPI. 4. CAD s/p CABG, AVR bioprosthetic valve 5. Leg edema with nonnephrotic proteinuria, hypoalbuminemic. 6. Hyperkalemia improved with kayexalate today DW hospitalist, hematology, pathology
--- NOTE | 2017-12-24 10:24 | PN.RENAL_ITS ---
Subjective: Pt with no change in breathing. Remains weak. Has mild leg swelling. Albumin low at 1.9. Hgb low at 7.8g. Will transfuse 1unit prbc. Discussed with pt re transfer to [facility]. Reviewed [facility] path report on kidney biopsy with [facility]. [place] stain pending. Discussed with hematology who does not think pt has myeloma. 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 treatment of choice for C3 glomerulopathy is eculizumab that is difficult to obtain. Spoke with F nephrology who is willing to continue evaluation and treatment with transfer. - Physical Exam General: Alert, Oriented x3, Cooperative, - - weak Lungs: Clear to auscultation, Diminished Cardiovascular: Regular rate, No rub noted Abdomen: Bowel Sounds Present, Soft, Non Tender, Non-Distended Extremities: Edema - mild ankle Skin: No rashes Musculoskeletal: No Muscle Wasting Psych/Mental Status: Alert and oriented to time, place, person, mood and affect Vital Signs Temp Pulse Resp BP Pulse Ox 97.5 F L 62 18 127/72 H 98 12/24/17 07:31 12/24/17 09:09 12/24/17 07:31 12/24/17 07:31 12/24/17 07:31 Oxygen Flow Rate (L/min) [6] 4 Oxygen Flow Rate (L/min) [5] 4 Oxygen Flow Rate (L/min) [4] 4 Oxygen Flow Rate (L/min) [3] 4 Oxygen Flow Rate (L/min) [2] 4 Oxygen Flow Rate (L/min) [1 ( 2 Initial Baseline)] Oxygen Flow Rate (L/min) 2 Oxygen Delivery Method [6] Nasal Cannula Oxygen Delivery Method [5] Nasal Cannula Oxygen Delivery Method [4] Nasal Cannula Oxygen Delivery Method [3] Nasal Cannula Oxygen Delivery Method [2] Nasal Cannula Oxygen Delivery Method [1 ( Nasal Cannula Initial Baseline)] Oxygen Delivery Method Room Air Weight: 114.714 kg Body Mass Index (BMI) 28.5 Finger Stick Blood Glucose 82 Intake and Output for Last 24 Hours 12/22/17 12/23/17 12/24/17 23:59 23:59 23:59 Intake Total 1307 / 1307 2353 / 2353 100 / 100 Output Total 1005 / 1005 1735 / 1735 500 / 500 Balance 302 / 302 618 / 618 -400 / -400 Microbiology Past 72 Hours 12/16/17 05:00 Blood Culture - Final Blood Culture (Wb) - Right Hand No growth in 5 days. 12/16/17 05:00 Blood Culture - Final Blood Culture (Wb) - Anticubital Left No growth in 5 days. Laboratory Tests Past 24 Hrs 12/20/17 12/23/17 12/24/17 05:30 05:20 05:05 WBC 3.2 L RBC 2.48 L Hgb 7.8 L Hct 24.6 L MCV 99.2 H MCH 31.5 MCHC 31.7 L RDW 19.4 H RDW Differential 68.1 H Plt Count 80 L MPV 10.2 Differential Comment SCANNED Sodium Potassium Chloride Carbon Dioxide BUN Creatinine Estim Creat Clear Calc Est GFR (MDRD) Af Amer Est GFR (MDRD) Non-Af BUN/Creatinine Ratio Glucose Calcium Phosphorus Magnesium 2.0 Total Protein (PEP) 7.0 Albumin IgG 3273 H IgA 349 IgM 159 Immunofixation Screen Comment: Albumin (EDISON) 2.4 L Albumin/Globulin (EDISON) 0.6 L Hsxlp-2-Wtuatvijf EDISON 0.2 Ljvpx-6-Rvrzwwzsq EDISON 0.5 Beta-Globulins (EDISON) 0.7 Gamma Globulins (EDISON) 4.6 H EDISON M-Vivek EDISON Comments Comment Complement C3 64 L Complement C4 17 Free [place] LC, Quant 402.7 H Free Lambda LC, Quant 378.8 H Free [place]/Lambda Ratio 1.06 Blood Type Antibody Screen Crossmatch 12/24/17 12/24/17 05:05 08:50 WBC RBC Hgb Hct MCV MCH MCHC RDW RDW Differential Plt Count MPV Differential Comment Sodium 141 Potassium 5.3 H Chloride 118 H Carbon Dioxide 17.0 L BUN 61 H Creatinine 4.07 H Estim Creat Clear Calc 23.40 Est GFR (MDRD) Af Amer 19 L Est GFR (MDRD) Non-Af 16 L BUN/Creatinine Ratio 15.0 Glucose 110 H Calcium 7.9 L Phosphorus 5.5 H Magnesium Total Protein (PEP) Albumin 1.9 L IgG IgA IgM Immunofixation Screen Albumin (EDISON) Albumin/Globulin (EDISON) Kmavc-3-Wbwlboxph EDISON Nrsbx-8-Xnmehpklg EDISON Beta-Globulins (EDISON) Gamma Globulins (EDISON) EDISON M-Vivek EDISON Comments Complement C3 Complement C4 Free [place] LC, Quant Free Lambda LC, Quant Free [place]/Lambda Ratio Blood Type A POSITIVE Antibody Screen NEGATIVE Crossmatch See Detail Medical Necessity - Tobacco Use Smoking Status: Current some day smoker Assessment/Plan All Active Problems (Last Reviewed 11/16/17 @ 08:36 by Suzanne Ferris) Acute on chronic anemia (Acute) Hyperglobulinemia (Acute) Pancytopenia (Acute) GI bleed (Acute) ARF (acute renal failure) (Acute) Acute CVA (cerebrovascular accident) (Acute 10/27/17) 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) Atrial fibrillation (Acute) Sinus bradycardia (Acute) SOB (shortness of breath) (Acute) Atrioventricular block, type I (Acute) Premature ventricular contraction (Acute) Abnormal EKG (Acute) Bruit of left carotid artery (Acute) 1. IRINA baseline creatinine 0.99 in October increased to 4.2 on admission to 3.8 today. + Proteinuria 2.3g, CrCl 27cc/min on 24h urine. Reviewed prelim renal biopsy results with pathology IF positive for C3 and C1Q in mesangium, seronegative ANDREZ. SPEP asymmetric gamma, UPEP monoclonal protein but kappa/lambda ratio normal with 1+ staining on IF of renal biopsy. C3 low with normal C4. EM no subepithelial deposits. Final path report pending. [place] stain pending. Initiated prednisone 60mg daily. 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 Contacted nephrology dept at [facility] regarding transfer. 2. Profound anemia, pancytopenia. PRBC today 3. Hx GI bleed, min-en-y on PPI. 4. CAD s/p CABG, AVR bioprosthetic valve 5. Leg edema with nonnephrotic proteinuria, hypoalbuminemic. 6. Hyperkalemia improved with kayexalate today DW hospitalist, hematology, pathology
--- NOTE | 2017-12-24 11:27 | NURSING ---
called report to [facility]
--- NOTE | 2017-12-24 12:00 | NURSING ---
pt transfered to [facility] with blood running
== END 2017-12-24 11:55 | disposition short-term general hospital (02) | DRG 682 ==
LOC: ED 23:30 → MS2 12-15 00:14
PROVIDERS: Anesthesiology; Internal Medicine; Internal Medicine Hematology & Oncology; Internal Medicine Nephrology; Nurse Practitioner Family; Physician Assistant; Surgery; Admitting Provider Family Medicine; Emergency Provider Emergency Medicine; Family Provider Family Medicine; PCP Family Medicine; Visit Provider Family Medicine
PROC: 0DJ08ZZ Inspection of Upper Intestinal Tract, Via Natural or Artificial Opening Endoscopic (ICD-10-PCS; CPT 43235; principal; 2017-12-18 11:25)
PROC: 0DJD8ZZ Inspection of Lower Intestinal Tract, Via Natural or Artificial Opening Endoscopic (ICD-10-PCS; CPT 45378; principal; 2017-12-21 12:25)
DX: N17.9 Acute kidney failure, unspecified (principal); E43 Unspecified severe protein-calorie malnutrition; D61.818 Other pancytopenia; K90.9 Intestinal malabsorption, unspecified; D50.9 Iron deficiency anemia, unspecified; E78.5 Hyperlipidemia, unspecified; I25.10 Atherosclerotic heart disease of native coronary artery without angina pectoris; E87.5 Hyperkalemia; I69.391 Dysphagia following cerebral infarction; R13.10 Dysphagia, unspecified; I48.0 Paroxysmal atrial fibrillation; R19.5 Other fecal abnormalities; E03.9 Hypothyroidism, unspecified; F17.200 Nicotine dependence, unspecified, uncomplicated; Z95.1 Presence of aortocoronary bypass graft; Z98.84 Bariatric surgery status; Z95.0 Presence of cardiac pacemaker; Z95.2 Presence of prosthetic heart valve; Z68.28 Body mass index [BMI] 28.0-28.9, adult
CPT/HCPCS: 36415; 71046; 74230; 76770; 77012; 78278; 80048; 80069; 80076; 81001; 82247; 82248; 82274; 82570; 82575; 82607; 82728; 82746; 82784; 83540; 83550; 83615; 83735; 83883; 83930; 83935; 84156; 84165; 84166; 84300; 84443; 85014; 85018; 85025; 85027; 85045; 85384; 85610; 85730; 86038; 86160; 86225; 86235; 86256; 86334; 86335; 86850; 86880; 86900; 86901; 86920; 86922; 86965; 87040; 87070; 87077; 87205; 87449; 88305; 88311; 88313; 88341; 88342; 92507; 92526; 92611; 97803; 99156; 99157; 99281; 99406; A9560; J1756; J7030; J7040; J7050; P9016; P9035; A4216

== ENCOUNTER → 2017-12-18 10:30 | Outpatient (CLI) | payer OTHER, SELFPAY ==
--- NOTE | 2017-12-18 | KID_PTH ---
PATIENT: DAKOTA RIVERA LOC: CT U#:[id number] AGE/SX: 69/M ROOM: RE12/18/[address]: Dr. Tapan Danielson DO : 1955 BED: DIS: SPEC #: [id number] RECD: 12/18/17 13:05 STATUS: AMBER CRISTOBAL #: [id number] JAYASHREE: 12/18/17 00:[address]: Shantal Palmer DEPT: SURGICAL PATHOLOGY RECD BY: Monty Villa ENTERED: 12/18/17 13:05 SP TYPE: KIDNEY OTHR DR: DO Dr. Tapan Mirza DO Tissues: Kidney, NOS Procedures: Electron Microscopy (ACH) Fluorescent Antibody (ACH) Sp St Grp II Kidney (ACH) Kidney Biopsy (ACH) Fluorescent antibody (ACH) add'l Comments: @ Ordering doctor for DAVEY edited from to @ by MAKENZIE at 12/18/17 144 @ Submitting doctor edited from to @ by MAKENZIE at 12/18/17 1442 HEADER OPERATION: CT-guided kidney biopsy right side PRE-OP DIAGNOSIS: Renal failure, anemia TISSUE SUBMITTED: 18g core x4 right kidney MICROSCOPIC DIAGNOSIS Kidney, needle biopsy: Glomeruli showing focal segmental mesangiolysis (3 of 28 glomeruli), vague nodularity (2 of 28 glomeruli) and a single cellular crescent (1 of 28 glomeruli). Mild tubular injury. Moderate interstitial fibrosis and tubular atrophy. Strong granular IgM and C3 staining on immunofluorescence with weak granular staining for C1q and kappa and lambda light chains. Electron microscopy with occasional, poorly-defined electron-dense areas in mesangium. COMMENT Additional history obtained from multiple conversations with Dr. Shantal Palmer: Patient with recent onset of renal failure. He was fine in October. Now with creatinine of 4. Proteinuria of 2.3 in 24 hours. History of Elmer-en-Y procedure, status post valve replacement, status post stroke. No evidence of renal stones. Platelets dropping. ANDREZ negative, ANCA negative, C3 low, C4 normal, kappa and lambda elevated, but no predominance. Taken together, the light, immunofluorescence and electron microscopy studies show a constellation of pathologic features. However, the findings do not fit neatly into a single diagnostic category, particularly when taking the clinical picture into account. Lupus nephritis is an entity which can often encapsulate a variety of pathologic findings, including the ones seen here, but by report, the patient does not meet the clinical criteria for systemic lupus erythematosus. The low platelets bring up the possibility of atypical hemolytic uremic syndrome (HUS); the pathologic findings are not completely incompatible, but there is a notable absence of thrombi, vascular wall expansion and reduplication of the glomerular basement membranes. Atypical HUS could explain the mesangiolysis, slight increase in mesangial cellularity and mild tubular injury. 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 However, in the biopsy, there is only a single crescent present out of an ample sampling of 28 total glomeruli. In RPGN, it would be expected that there would be more cellular crescents, more glomerular inflammation and perhaps fewer of the other pathologic findings described. The two nodular-appearing glomeruli also bring up some other diagnostic considerations. Given that the patient is not diabetic, dense deposit disease, burnt-out MPGN, amyloid or idiopathic causes would be on the differential. There is no electron-micrographic evidence of dense deposit disease, MPGN or amyloid. The immunofluorescence findings also deserve comment. It is somewhat unusual to have an IgM predominantly pattern along with C3. When weak, IgM and C3 may be attributed to background nonspecific staining; however, in this case, the staining is quite strong and is mirrored in the kappa and lambda light chains along with C1q, albeit at weaker levels in these other stains. IgM nephropathy is a controversial entity. In addition, there is an apparent disconnect between the immunofluorescence pattern and the electron microscopic findings. On ultrastructure, there are not as many electron-dense areas as would be expected from the immunofluorescence studies. It is possible that the immunofluorescence results are spurious or that the glomerulus imaged by electron microscopy is not entirely sales representative advertising of the disease process. The challenge with this case is that there is not only one piece of information that does not fit nicely into a clinic-pathologic diagnostic category. Rather, irrespective of what working diagnosis is selected, there are multiple pieces of information which are atypical for a given entity. Thus, the final diagnosis is descriptive. Clinical correlates is recommended and if new clinical information is obtained which would inform further interpretation of the pathological findings, I would be happy to revisit this case at that time. MICROSCOPIC DESCRIPTION LIGHT MICROSCOPY: Sections show cores of renal parenchyma with approximately 28 glomeruli present, one of which is globally sclerotic. There is a single cellular crescent (best seen on PAS level 2). Three glomeruli show focal segmental mesangiolysis. Two glomeruli show vague nodularity. No segmental scars are appreciated. No definitive necrosis or thrombosis is identified. PAS, silver and trichrome stains highlight the aforementioned features, but do not show any evidence of glomerular basement membrane double contours, spikes or fuchsinophilic immune-type deposits. PAS highlights an increase in mesangial matrix material along with slight increase in mesangial cellularity. Frequent tubules contain red blood cell casts. Tubules also show some mild attenuation of the tubular epithelial cells and there are rare tubules with intratubular debris. Arteries show mild arteriosclerosis. Arterioles show mild arteriosclerosis. There is no fibrinoid necrosis of thrombi in the extra-glomerular vessels. A Congo Red stain for amyloid is negative. There is focal mild interstitial inflammation, composed predominantly of lymphocytes and plasma cells. IMMUNOFLUORESCENCE: The tissue submitted for immunofluorescence studies contain 8 glomeruli, 1 of which is globally sclerotic. All of the glomeruli show the same immunofluorescence pattern. There is 4+ granular glomerular staining for IgM and C3. There is similar, but weaker 1+ granular pattern of C1q, kappa and lambda staining. IgG and IgA show minimally increased staining above background. Albumin and fibrinogen show nonspecific staining. ELECTRON MICROSCOPY: The tissue submitted for electron microscopy studies contains a single glomerulus. Ultrastructural examination demonstrates that the glomerular capillary loops are partially compressed by an increase in mesangial matrix material. The glomerular capillary loops are of approximately normal caliber. The visceral epithelial foot processes show a mild increase in effacement, involving approximately 30-40% of the glomerular capillary loop surface area. The mesangium contains occasional poorly-defined electron-dense areas in the mesangium. There are no electron densities in the glomerular basement membranes. Tubules appear unremarkable. Arteries and arterioles are not well visualized. GROSS DESCRIPTION The specimen is sent entirely to [facility] for diagnosis. The case is received in one container labeled with the patient's name and medical record number, designated right kidney biopsy. The specimen consists of four cores of tissue measuring 2.0, 1.8, 1.7 and 1.7 cm in length. The tissue is divided and processed for light, immunofluorescence and electron microscopy studies.
== END ==
PROVIDERS: Family Provider Family Medicine; PCP Family Medicine; Referring Provider Internal Medicine; Visit Provider Internal Medicine
DX: N19 Unspecified kidney failure (principal); D64.9 Anemia, unspecified
CPT/HCPCS: 88305; 88313; 88346; 88348; 88350

== ENCOUNTER → 2018-02-08 16:21 | Outpatient (CLI) | payer OTHER, SELFPAY ==
[2017-12-21 11:59] VITALS: BMI 28.5
--- NOTE | 2018-02-08 16:27 | RAD_ITS ---
STUDY: X-RAY CHEST REASON FOR EXAM: Male, 62 years old. Follow-up cardiac valve replacement 3 weeks ago. History of additional valve replacement April 2017, pacemaker, renal dialysis. TECHNIQUE: PA and lateral views of the chest. COMPARISON: PA and lateral views of the chest October 26, 2017. Only the lateral projection of the December 15, 2017 studies available for comparison at the time of this dictation, and chest x-ray of December 16, 2017 was not available. FINDINGS: The dual lead left subclavian cardiac pacemaker seen in October 2017 has been removed. A multi epicardial pacer device passes through the subxiphoid subcutaneous to the anterior margins of the right heart. There is a dual lumen tunneled right chest wall dialysis catheter, its tips at the cavoatrial junction. An adjacent PICC line has its tip in the low superior vena cava. Pleural effusion now secures the posterolateral right costophrenic sulcus. There is mild volume loss in the right lung base. Left lung is clear and expanded. Normal size heart. Sternal cerclage wires are present from a prior sternotomy. A left 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 clip is again noted. Normal mediastinum and soren. Normal visualized pulmonary arteries. There is stable tortuosity of the distal descending thoracic aorta. There are stable multilevel degenerative changes of the visualized thoracic spine. Normal visualized ribs, clavicles, and shoulders. Surgical clips again seen clustered in the medial left upper quadrant beneath the diaphragm. RAD/Chest PA and Lateral IMPRESSION: 1. Small right pleural effusion with mild volume loss in the right lung base now present. 2. Previous left subclavian pacemaker has been removed, and a new multilead epicardial pacer passing up to the subxiphoid tissues probably outside the [id number]-wa-qtra is now present. 3. Prior median sternotomy and clipping of left 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 again noted. The valve prostheses stated history not identified here. Heart size is normal. 4. Right-sided tunneled dialysis and PICC line catheters are now present. Electronically Signed: Christ Vela MD at 16:23 EST , Service support ,
== END ==
PROVIDERS: Family Provider Family Medicine; PCP Family Medicine; Referring Provider Family Medicine; Visit Provider Family Medicine
DX: I38 Endocarditis, valve unspecified (principal); I44.30 Unspecified atrioventricular block
CPT/HCPCS: 71046

== ENCOUNTER 2018-02-15 15:24 | Outpatient (RCR) | payer OTHER, SELFPAY ==
[2017-12-21 11:59] VITALS: BMI 28.5
[2018-02-09 10:56] LABS: Absolute Lymphocyte Count 1.28 X10^3/ul (0.83-4.51); Absolute Neutrophil Count 2.9 X10^3/uL (2.0-7.7); Basophil# 0.03 X10^3/uL; Basophil% 0.6 % (0-1); Differential Indicated SCAN CRITERIA MET; Eosinophil# 0.14 X10^3/uL; Eosinophils% 2.9 % (0-5); Hematocrit 30.8 % (40-54); Hemoglobin 9.5 g/dl (13.0-16.5); Lymphocyte # 1.28 X10^3/ul (4.0); Lymphocyte % 26.8 % (19-41); Mean Corp Hgb Conc 30.8 g/gl (32-36); Mean Corpuscular Hgb 30.2 pg (27.0-32.0); Mean Corpuscular Volume 97.8 fL (80-94); Mean Platelet Vol. 8.7 fl (6.2-12.0); Monocyte# 0.43 X10^3/uL; Neutrophil # 2.88 X10^3/uL (2.7-7.7); Neutrophil % 60.5 % (47-70); POSITIVE COUNT NO; POSITIVE DIFFERENTIAL NO; POSITIVE MORPHOLOGY YES; Platelet Count 127 K/mm3 (150-450); RBC Distribution Width CV 19.8 % (11.6-14.6); RBC Distribution Width SD 68.3 fl (35.1-43.9); Red Blood Count 3.15 M/mm3 (4.6-6.2); White Blood Count 4.8 K/mm3 (4.4-11.0)
[2018-02-09 10:58] LABS: Creatinine, Serum 4.83 mg/dL (0.70-1.30); EST Glomerular Filtration Rate 13 mL/min (>60); Est Glom Filt Rate - Afr Amer 16 mL/min (>60)
[2018-02-09 11:23] LABS: Anisocytosis 1+
[2018-02-15 15:51] LABS: Absolute Lymphocyte Count 1.27 X10^3/ul (0.83-4.51); Absolute Neutrophil Count 3.2 X10^3/uL (2.0-7.7); Basophil# 0.04 X10^3/uL; Basophil% 0.8 % (0-1); Eosinophil# 0.18 X10^3/uL; Eosinophils% 3.5 % (0-5); Hematocrit 28.8 % (40-54); Lymphocyte # 1.27 X10^3/ul (4.0); Lymphocyte % 24.6 % (19-41); Mean Corp Hgb Conc 31.3 g/gl (32-36); Mean Corpuscular Hgb 31.4 pg (27.0-32.0); Mean Corpuscular Volume 100.3 fL (80-94); Mean Platelet Vol. 9.2 fl (6.2-12.0); Monocyte# 0.47 X10^3/uL; Monocyte% 9.1 % (0-10); Platelet Count 133 K/mm3 (150-450); RBC Distribution Width CV 19.7 % (11.6-14.6); RBC Distribution Width SD 69.5 fl (35.1-43.9); Red Blood Count 2.87 M/mm3 (4.6-6.2); White Blood Count 5.2 K/mm3 (4.4-11.0)
[2018-02-15 15:58] LABS: Differential Indicated SCAN CRITERIA MET; POSITIVE COUNT NO; POSITIVE DIFFERENTIAL NO; POSITIVE MORPHOLOGY YES
[2018-02-15 16:19] LABS: Creatinine, Serum 5.64 mg/dL (0.70-1.30); EST Glomerular Filtration Rate 11 mL/min (>60); Est Glom Filt Rate - Afr Amer 13 mL/min (>60)
[2018-02-15 16:29] LABS: Anisocytosis 1+; Differential Comment SCANNED
== END 2018-02-19 23:59 ==
LOC: HHLAB 15:24
PROVIDERS: Family Provider Family Medicine; PCP Family Medicine; Referring Provider Family Medicine; Visit Provider Family Medicine
DX: N17.9 Acute kidney failure, unspecified (principal)
CPT/HCPCS: 82565; 85025

== ENCOUNTER 2018-03-01 12:41 | Outpatient (RCR) | payer OTHER, SELFPAY ==
[2017-12-21 11:59] VITALS: BMI 28.5
[2018-03-01 14:17] LABS: Creatinine, Serum 3.45 mg/dL (0.70-1.30); EST Glomerular Filtration Rate 19 mL/min (>60); Est Glom Filt Rate - Afr Amer 23 mL/min (>60)
[2018-03-01 14:37] LABS: Absolute Lymphocyte Count 1.33 X10^3/ul (0.83-4.51); Basophil# 0.04 X10^3/uL; Differential Indicated SCAN CRITERIA MET; Eosinophil# 0.32 X10^3/uL; Hematocrit 25.3 % (40-54); Hemoglobin 7.9 g/dl (13.0-16.5); Lymphocyte # 1.33 X10^3/ul (4.0); Lymphocyte % 33.3 % (19-41); Mean Corp Hgb Conc 31.2 g/gl (32-36); Mean Corpuscular Hgb 31.2 pg (27.0-32.0); Monocyte# 0.28 X10^3/uL; Neutrophil # 2.03 X10^3/uL (2.7-7.7); Neutrophil % 50.7 % (47-70); POSITIVE COUNT NO; POSITIVE DIFFERENTIAL NO; POSITIVE MORPHOLOGY YES; Platelet Count 129 K/mm3 (150-450); RBC Distribution Width CV 19.6 % (11.6-14.6); RBC Distribution Width SD 71.4 fl (35.1-43.9); Red Blood Count 2.53 M/mm3 (4.6-6.2)
== END 2018-03-03 13:41 | disposition home or self-care (01) ==
LOC: HHLAB 12:41
PROVIDERS: Family Provider Family Medicine; PCP Family Medicine; Referring Provider Family Medicine; Visit Provider Family Medicine
DX: T82.6XXA Infection and inflammatory reaction due to cardiac valve prosthesis, initial encounter (principal); I33.0 Acute and subacute infective endocarditis
CPT/HCPCS: 82565; 85025

== ENCOUNTER → 2018-04-01 11:43 | Outpatient (CLI) | payer OTHER, SELFPAY ==
[2018-03-15 11:09] VITALS: BMI 25.3
--- NOTE | 2018-04-01 12:48 | CR.HP_ITS ---
CR - History & Physical - General Arrival date:: 04/01/18 Arrival time:: 12:44 Date of Referral:: 04/01/18 Date of CR Evaluation:: 04/01/18 Referring Physician: Primary Diagnosis: Aortic valve replacement, mitral valve repair - History of Present Cardiac Event Onset Date: Enter Onset Date of cardiac illnesses in Comment field below Current stable Angina Pectoris:: No Acute Myocardial Infarction within 12 months:: No Coronary Artery Bypass Graft:: No Heart valve replacement or repair:: Yes - 01/19/18 PTCA or coronary stenting:: No Heart or Heart-Lung Transplant:: No Heart Failure EF <35%:: No Type of Symptoms:: edema, fatigue Interventions with present event:: In hospital 2 [id number] units of blood, remains anemic, infection in blood, Were there any complications?: Current renal hemodyalysis - Medications Home Medications: Ambulatory Orders Medication Instructions Recorded levothyroxine 200 mcg tablet 200 mcg PO QDAY tab 03/26/17 cyanocobalamin (vit B-12) 500 mcg 500 mcg PO QDAY 03/27/17 tablet multivitamin tablet 1 tab PO QDAY 05/18/17 Acetaminophen [Tylenol] 500 mg PO Q4H PRN PRN 10/27/17 atorvastatin 80 mg tablet 80 mg PO DAILY #90 tab 12/01/17 aspirin 81 mg tablet,delayed 162 mg PO DAILY tab 03/10/18 release cholecalciferol (vitamin D3) 2,000 3,000 unit PO DAILY tab 03/10/18 unit tablet darbepoetin tereza 60 mcg/0.3 mL in 60 mcg SC QWEEK ml 03/10/18 polysorbate injection syringe doxycycline hyclate 100 mg capsule 100 mg PO BID 03/10/18 thiamine HCl (vitamin B1) 100 mg 100 mg PO DAILY 03/10/18 tablet carvedilol 25 mg tablet 25 mg PO BID 03/15/18 pantoprazole 20 mg tablet,delayed 40 mg PO BID tab 03/15/18 release - Allergies Allergies/Adverse Reactions: Allergies Penicillins Allergy (Verified 03/15/18 11:10) Hives - Sleep Disorder Evaluation Hx of Sleep Apnea: No Do you snore loudly (louder than talking or can be heard through closed doors)?: No Do you often feel tired/ fatigued/ sleepy during daytime?: Yes Has anyone observed you stop breathing during sleep?: No History of Hypertension (for STOP score): Yes STOP Results: Positive Advanced Directives - Advanced Directives 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 [employer] Tirfecta pericardial valve 05/07/17; aortic valve with root debridement and replacement with 26mm aortic homograft 01/19/18 @ [facility] History of carpal tunnel surgery Z92.89 History of gastric bypass Z98.84 History of knee surgery Z98.890 Surgical History: coronary bypass surgery - AVR Apr 2017, Elmer-en-y 1996, pacemaker implantation - Family History Summary Family History: Family History (Last Reviewed 03/15/18 @ 11:14 by Suzanne Ferris) Father CAD (coronary artery disease) Mother CAD (coronary artery disease) Thyroid disorder Sister Thyroid cancer Social History - Smoking History Smoking Status: Former smoker Hx Smoking Cessation Date: 10/21/17 - Alcohol Use Alcohol Usage: No - Substance Abuse Hx Substance Use: No - Occupation Occupation (List type of work in comments):: Employed - Hobbies, Recreation, Social Activities Recreational Activities: I can hardly do any recreational activities Social Environment - Status Marital Status: Single - Current Living Arrangements Living Environment:: Alone - Children How many children do you have?: 2 Do any of your children live nearby?: No - Safety Do you feel safe in your surroundings?: Yes - Assistance Do you need any assistance at home?: no Review of Systems - Review of Systems Hints: Right click = Denies (Slash). Left click = Reports ([place]) Review of Present Symptoms: Reports: Shortness of Breath with Exertion, Fatigue, Appetite - Normal, Appetite - Special Diet - Cardiac, renal diet, Sleep - Normal. Denies: Shortness of Breath at Rest, PVD, Operative Discomfort, Angina, Wound Healing, Dizziness/Lightheadedness, Heart Arrhythmia/Irregularities, Sexual Changes - Pain Is Patient Pain Free?: Yes Risk Factor Assessment - Chief Complaint Chief Complaint: Fatigue and need to get back to work. - Vital Signs Pulse Ox: 99 - Pulse Pulse Rate: 66 Pulse Rhythm: Regular - Hypertension Blood Pressure Sitting - Right Arm: 171/97 Blood Pressure Sitting - Left Arm: 160/90 - Stress Stress: Recent, Work-related - Diabetes Nutrition Referral for Diabetes: No - Obesity Height: 6 ft 4 in Weight:: 208 lb Weight in Pounds: 208.0 lbs Body Mass Index (BMI): 25.3 Nutritional Referral for Obesity: No - Physical Inactivity Physical Inactivity: None - Risk Stratification Risk Guidelines: Lowest Risk: Risk Factor for Dyslipidemia, Risk Factor for Diabetes, Risk Factor for Obesity, Risk Factor for Sedentary Lifestyle, Moderate Risk: Risk Factor for Smoking, Risk Factor for Depression, Highest Risk: Risk Factor for Hypertension - For Smoking Smoking Risk Guidelines: Smoking Low Risk: None or quit greater than 6 months ago. Smoking Moderate Risk: Smoker or quit 6 months or less ago. Smoking High Risk: Smoker - For Dyslipidemia Dyslipidemia Risk Guidelines: Low Risk: Moderate Risk: High Risk: 15-25% fat 25.1-29% fat >/= 30% fat. <7% sat fat 7-9% sat fat >9% sat fat. <150 mg chol 150-299 mg chol >/= 300 mg chol. LDL <100 LDL 100-129 LDL >/= 130. Chol/HDL ratio <5.0 Chol/HDL ratio 5.0-6.0 Chol/HDL ratio >6.0. Triglycerides <100 Triglycerides 100- 149 Triglycerides >/= 150 - For Diabetes Mellitus Diabetes Risk Guidelines: Diabetes Low Risk: HgA1c <6.5% and/or FBG <120. Diabetes Moderate Risk: HgA1c 6.6-7.9% and/or FBG 120-180. Diabetes High Risk: HgA1c >/= 8% and/or FBG >180 - For Obesity/Overweight Obesity/Overweight Risk Guidelines: Obesity Low Risk: BMI <25.0. Obesity Moderate Risk: BMI 25-29.9. Obesity High Risk: BMI >/= 30.0 - For Hypertension Hypertension Risk Guidelines: Hypertension Low Risk: Systolic <120 and Diastolic <80. Hypertension Moderate Risk: Systolic 120-139 and Diastolic 80-89. Hypertension High Risk: Systolic >/= 140 and Diastolic >/= 90 - For Sedentary Lifestyle Sedentary Lifestyle Risk Guidelines: Sedentary Lifestyle Low Risk: >/= 1,500 kcal/week. Sedentary Lifestyle Moderate Risk: 700-1,499 kcal/week. Sedentary Lifestyle High Risk: < 700 kcal/week - For Depression Depression Risk Guidelines: Depression Low Risk: Not clinically depressed. Depression Moderate Risk: Mildly depressed. Depression High Risk: Clinically depressed - Family History Family History: Family History (Last Reviewed 03/15/18 @ 11:14 by Suzanne Ferris) Father CAD (coronary artery disease) Mother CAD (coronary artery disease) Thyroid disorder Sister Thyroid cancer Motivation - Motivation to Participate On a scale of 1 to 10, how prepared are you to commit to attending program?: 10
[2018-04-01 13:12] VITALS: BP 160/90; BP 171/97; PULSE 66; O2SAT 99; BMI 25.3
--- NOTE | 2018-04-01 13:14 | PCM.CR.ITP ---
General Information - General Information Admitting Diagnosis: S/P aortic valve replacement, Mitral valve repair - Education/Goals Barriers to Learning: None Individual Counseling: Initial Assessment: High Blood Pressure, Hypertension, Sedentary Lifestyle, Stress, Family History of Heart Disease (under 65 years) Cardiac Rehabilitation Goals: 1. Maintain the individual as the primary focus of care. 2. To improve the patient's quality of life. 3. Identification of cardiac risk factors and provide cardiac risk factor management. 4. Enhance the psychosocial status of the patient. 5. Reconditioning enough to allow the patient to resume customary activities. 6. Control symptoms of cardiac disease Scale for measuring improvement of personal goals: Enter appropriate number in Comments. 2 = Unchanged. 3 = Slightly Better. 4 = Moderate Improvement. 5 = Met my Goal Personal Goals: Initial Assessment: Improve management of stress and emotions, Improve energy level, Participate in home exercise program, Get back to work, or to resume activities faster, Improve muscle strength and endurance, Improve diet and eating habits (eat healthier), Control risk factors (learn risk factor modification) Exercise - Initial Assessment - Visit Date of Eval: 04/01/18 - Stages of Change Stages of Change:: Action - Exercise Prescription Mode:: Treadmill, Biodyne, Rower, Airdyne, NuStep - Hypertension Do any of the following apply?: Yes Nutrition - Initial Assessment - Program Goals Nutrition Program Goals: LDL <70. Total Cholesterol <200. HDL >45. Triglycerides <150. HgbA1C <7%. BMI <25 - Visit Date of Assessment:: 04/01/18 - Stages of Change Stages of Change:: Action - Diabetes Diabetes:: No - Weight Management Height: 6 ft 4 in Weight:: 208 lb Body Fat %:: 25.3 - Intervention Referral to dietitian:: No Referral to Diabetic Clinic:: No Will attend diet classes:: Yes - Education Gave educational materials for:: Healthy eating Tobacco - Initial Assessment - Program Goals Tobacco Program Goals: Complete smoking cessation. Attend education classes. Improve Knowledge Test score - Stage of Change Stages of Change:: Action - Learning Barriers Learning Barriers: Vision, Ready to Learn Patient Health Questionnaire Initial Assessment 1. Little interest or pleasure in doing things: Several days 2. Feeling down, depressed, or hopeless: Several days 3. Trouble falling or staying asleep, or sleeping too much: Several days 4. Feeling tired or having little energy: More than half the days 5. Poor appetite or overeating: Several days 6. Feeling bad about yourself -- or that you are a failure or have let yourself or your family down: Not at all 7. Trouble concentrating on things, such as reading the newspaper or watching television: Not at all 8. Moving or speaking so slowly that other people could have noticed. Or the opposite - being so fidgety or restless that you have been moving around a lot more than usual: Not at all 9. Thoughts that you would be better off , or of hurting yourself in some way: Not at all How difficult have these problems made it for you to do your work, take care of things at home, or get along with other people?: Not difficult at all Total Score: 6 JEFFERSON-Q SV Test - Statements CAD is a disease of the arteries in the heart: False Examples of risk factors for heart disease: True Angina is chest pain or discomfort: True The benefits of resistance training include: True Eating more meat and dairy products: False Anti-platelet medications such as aspirin are important: True The only effective way to manage stress: False An exercise warm-up slowly increases heart rate: True Prepared, processed foods usually have high sodium: True Depression is common after a heart attack: True The statin medications lower cholesterol: True To control blood pressure, lower the amount of sodium: True If someone gets chest discomfort during walking: False Transfats are partially hydrogenated vegetable oils: True Sleep apnea that is not treated increases the risk: False To control cholesterol, one should become a vegetarian: False Someone knows if he/she is exercising at the right level: False Diabetes cannot be prevented with exercise & health eating: False Stress is a large risk for heart attack: True A diet that can help lower blood pressure is rich in: True - Total Score Total Correct Responses: 19 Self-Efficacy Initial Assessment We would like to know how confident you are in doing certain activities. Please select your confidence level for:: Select your confidence level for the following using the scale 1-10 where 1 is not at all confident and 10 is totally confident. Your score is the average of all 6 responses. Fatigue: How confident are you that you can keep the fatigue caused by your disease from interfering with the things you want to do? Select Number: 6 Physical Discomfort or Pain: How confident are you that you can keep the physical discomfort or pain of your disease from interfering with the things you want to do? Select Number: 6 Emotional Distress: How confident are you that you can keep the emotional distress caused by your disease from interfering with the things you want to do? Select Number: 6 Other Symptoms or Health Problems: How confident are you that you can keep other symptoms or health problems from interfering with the things you want to do? Select Number: 6 Different Tasks and Activities: How confident are you that you can do the different tasks and activities needed to manage your health condition so as to reduce your need to see a doctor? Select Number: 7 Medication: How confident are you that you can do things other than just taking medication to reduce how much your illness affects your everyday life? Select Number: 7 Total Score:: 6 Nutrition Survey - Nutrition Survey Instructions Scoring Instructions: Scoring is as follows: Yes = 1 points. No = 0 point. Patient score that is >/=12 is considered to be at potential nutritional risk and could benefit from a referral to a registered dietitian. - Nutrition Survey Initial Have you lost >10 lbs over the past 2 months without trying?: No Are you following a special diet at home for diabetes, low fat, or low salt?: Yes Are you interested in meeting with a dietitian for help understanding your diet?: No Do you eat less than 3 meals a day?: No Do you eat fatty meats (howell, sausage, ribs, etc), fried foods, desserts, large amounts of salad dressings, margarine, butter, or cheese most days?: Yes Do you have food allergies? [Enter types in comment field]: No Do you eat in restaurants more than 3 times a week?: No Do you season food with salt, seasoning salt, or garlic salt?: Yes Do you used canned, boxed, frozen meals, or soups, seasoning packets?: Yes Total Score:: 4
== END ==
PROVIDERS: Family Provider Family Medicine; PCP Family Medicine; Referring Provider Internal Medicine Cardiovascular Disease; Visit Provider Internal Medicine Cardiovascular Disease
DX: Z95.2 Presence of prosthetic heart valve (principal)

== ENCOUNTER → 2018-04-14 08:52 | Outpatient (CLI) | payer OTHER, SELFPAY ==
[2018-04-01 13:12] VITALS: BMI 25.3
[2018-04-14 10:01] LABS: Absolute Lymphocyte Count 1.35 X10^3/ul (0.83-4.51); Absolute Neutrophil Count 2.6 X10^3/uL (2.0-7.7); Basophil# 0.02 X10^3/uL; Basophil% 0.4 % (0-1); Eosinophil# 0.19 X10^3/uL; Eosinophils% 4.2 % (0-5); Hematocrit 34.5 % (40-54); Hemoglobin 10.5 g/dl (13.0-16.5); Lymphocyte # 1.35 X10^3/ul (4.0); Lymphocyte % 30.1 % (19-41); Mean Corp Hgb Conc 30.4 g/gl (32-36); Mean Corpuscular Hgb 34.7 pg (27.0-32.0); Mean Corpuscular Volume 113.9 fL (80-94); Mean Platelet Vol. 9.8 fl (6.2-12.0); Monocyte# 0.32 X10^3/uL; Monocyte% 7.1 % (0-10); Neutrophil # 2.59 X10^3/uL (2.7-7.7); Platelet Count 153 K/mm3 (150-450); RBC Distribution Width CV 17.7 % (11.6-14.6); RBC Distribution Width SD 73.9 fl (35.1-43.9); Red Blood Count 3.03 M/mm3 (4.6-6.2); White Blood Count 4.5 K/mm3 (4.4-11.0)
[2018-04-14 10:06] LABS: Differential Indicated SCAN CRITERIA MET; POSITIVE COUNT NO; POSITIVE DIFFERENTIAL NO; POSITIVE MORPHOLOGY YES
[2018-04-14 10:17] LABS: Anion Gap 7 (5-15); BUN 50 mg/dL (7-18); BUN/Creat Ratio 19.5 RATIO (10-20); Chloride 113 mmol/L (98-107); Creatinine, Serum 2.57 mg/dL (0.70-1.30); EST Glomerular Filtration Rate 27 mL/min (>60); Est Glom Filt Rate - Afr Amer 33 mL/min (>60); Ferritin 208 ng/mL (26-388); Glucose 74 mg/dL (74-106); Iron 75 ug/dL (65-175); Potassium 6.1 mmol/L (3.5-5.1); Sodium Level 141 mmol/L (136-145)
--- OUTSIDE RECORDS SUMMARY | 2018-06-16 05:16 | XMS RPT_ITS ---
:1955 Author Organization [place] Support Name Relationship Address Phone [employer] Unavailable [address] + [place] [address] EDINGTON, JEVON Unavailable [address] + [place] [address] FRANKLIN, CLIFFORD Unavailable Unavailable + [employer] Unavailable [address] + [place] [address] EDINGTON, JEVON Unavailable [address] + [place] [address] FRANKLIN, CLIFFORD Unavailable Unavailable + [employer] Unavailable [address] + [place] [address] EDINGTON, JEVON Unavailable [address] + [place] [address] FRANKLIN, CLIFFORD Unavailable Unavailable + [employer] Unavailable [address] + [place] [address] EDINGTON, JEVON Unavailable [address] + [place], [place] [address] FRANKLIN, CLIFFORD Unavailable Unavailable + [employer] Unavailable [address] + [place] [address] EDINGTON, JEVON Unavailable [address] + [place] [address] FRANKLIN, CLIFFORD Unavailable . + ., . . [employer] Unavailable [address] + [place] [address] EDINGTON, JEVON Unavailable [address] + [place] [address] FRANKLIN, CLIFFORD Unavailable . + ., . . [employer] Unavailable [address] + [place] [address] EDINGTON, JEVON Unavailable [address] + [place] [address] FRANKLIN, CLIFFORD Unavailable . + ., . . [employer] Unavailable [address] + [place] [address] EDINGTON, JEVON Unavailable [address] + [place] [address] FRANKLIN, CLIFFORD Unavailable Unavailable + [employer] Unavailable [address] + [place] [address] EDINGTON, JEVON Unavailable [address] + [place] [address] FRANKLIN, CLIFFORD Unavailable Unavailable + [employer] Unavailable [address] + [place] [address] EDINGTON, JEVON Unavailable [address] + [place] [address] FRANKLIN, CLIFFORD Unavailable Unavailable + [employer] Unavailable [address] + [place] [address] EDINGTON, JEVON Unavailable [address] + [place] [address] FRANKLIN, CLIFFORD Unavailable Unavailable + [employer] Unavailable [address] + [place] [address] EDINGTON, JEVON Unavailable [address] + [place] [address] FRANKLIN, CLIFFORD Unavailable Unavailable + [employer] Unavailable [address] + [place] [address] EDINGTON, JEVON Unavailable [address] + [place] [address] FRANKLIN, CLIFFORD Unavailable Unavailable + [employer] Unavailable [address] + [place] [address] EDINGTON, JEVON Unavailable [address] + [place] [address] FRANKLIN, CLIFFORD Unavailable Unavailable + [employer] Unavailable [address] + [place] [address] EDINGTON, JEVON Unavailable [address] + [place] [address] FRANKLIN, CLIFFORD Unavailable Unavailable + [employer] Unavailable [address] + [place] [address] EDINGTON, JEVON Unavailable [address] + [place] [address] FRANKLIN, CLIFFORD Unavailable Unavailable + [employer] Unavailable [address] + [place] [address] EDINGTON, JEVON Unavailable [address] + [place] [address] FRANKLIN, CLIFFORD Unavailable Unavailable + [employer] Unavailable [address] + [place] [address] EDINGTON, JEVON Unavailable [address] + [place] [address] FRANKLIN, CLIFFORD Unavailable Unavailable + [employer] Unavailable [address] + [place] [address] EDINGTON, JEVON Unavailable [address] + [place] [address] FRANKLIN, CLIFFORD Unavailable Unavailable + [employer] Unavailable [address] + [place] [address] EDINGTON, JEVON Unavailable [address] + [place] [address] FRANKLIN, CLIFFORD Unavailable Unavailable + [employer] Unavailable [address] + [place] [address] EDINGTON, JEVON Unavailable [address] + [place] [address] FRANKLIN, CLIFFORD Unavailable Unavailable + [employer] Unavailable [address] + [place] [address] EDINGTON, JEVON Unavailable [address] + [place] [address] FRANKLIN, CLIFFORD Unavailable Unavailable + [employer] Unavailable [address] + [place] [address] EDINGTON, JEVON Unavailable [address] + [place] [address] FRANKLIN, CLIFFORD Unavailable Unavailable + [employer] Unavailable [address] + [place] [address] EDINGTON, JEVON Unavailable [address] + [place] [address] FRANKLIN, CLIFFORD Unavailable Unavailable + [employer] Unavailable [address] + [place] [address] EDINGTON, JEVON Unavailable [address] + [place] [address] FRANKLIN, CLIFFORD Unavailable Unavailable + [employer] Unavailable [address] + [place] [address] EDINGTON, JEVON Unavailable [address] + [place] [address] FRANKLIN, CLIFFORD Unavailable Unavailable + [employer] Unavailable [address] + [place] [address] EDINGTON, JEVON Unavailable [address] + [place] [address] FRANKLIN, CLIFFORD Unavailable 1 + [place] [address] [employer] Unavailable [address] + [place] [address] EDINGTON, JEVON Unavailable [address] + [place] [address] FRANKLIN, CLIFFORD Unavailable 1 + [place] [address] [employer] Unavailable [address] + [place] [address] EDINGTON, JEVON Unavailable [address] + [place] [address] FRANKLIN, CLIFFORD Unavailable 1 + [place] [address] [employer] Unavailable [address] + [place] [address] EDINGTON, JEVON Unavailable [address] + [place] [address] FRANKLIN, CLIFFORD Unavailable Unavailable + EDINGTON, JEVON Unavailable Unavailable + FRANKLIN, CLIFFORD Unavailable Unavailable + [employer] Unavailable [address] + [place] [address] EDINGTON, JEVON Unavailable [address] + [place] [address] FRANKLIN, CLIFFORD Unavailable Unavailable + [employer] Unavailable [address] + [place] [address] EDINGTON, JEVON Unavailable [address] + [place] [address] FRANKLIN, CLIFFORD Unavailable Unavailable + [employer] Unavailable [address] + [place] [address] EDINGTON, JEVON Unavailable [address] + [place] [address] FRANKLIN, CLIFFORD Unavailable Unavailable + [employer] Unavailable [address] + [place] [address] EDINGTON, JEVON Unavailable [address] + [place] [address] FRANKLIN, CLIFFORD Unavailable [address] + [place] [address] [employer] Unavailable [address] + [place] [address] EDINGTON, JEVON Unavailable [address] + [place] [address] FRANKLIN, CLIFFORD Unavailable [address] + [place] [address] [employer] Unavailable [address] + [place] [address] EDINGTON, JEVON Unavailable [address] + [place] [address] FRANKLIN, CLIFFORD Unavailable [address] + [place] [address] [employer] Unavailable [address] + [place] [address] EDINGTON, JEVON Unavailable Unavailable [phone] [place] [address] FRANKLIN, CLIFFORD Unavailable Unavailable + [place] [address] [employer] Unavailable [address] + [place] [address] EDINGTON, JEVON Unavailable [address] + [place] [address] FRANKLIN, CLIFFORD Unavailable [address] + [place] [address] [employer] Unavailable [address] + [place] [address] EDINGTON, JEVON Unavailable [address] + [place] [address] FRANKLIN, CLIFFORD Unavailable [address] + [place] [address] [employer] Unavailable [address] + [place] [address] EDINGTON, JEVON Unavailable [address] + [place] [address] FRANKLIN, CLIFFORD Unavailable [address] [place] [place] [address] [employer] Unavailable [address] + [place] [address] EDINGTON, JEVON Unavailable [address] + [place] [address] FRANKLIN, CLIFFORD Unavailable [address] [place] [address] [employer] Unavailable [address] + [place] [address] EDINGTON, JEVON Unavailable [address] + [place] [address] FRANKLIN, CLIFFORD Unavailable [address] [place] [address] EDINGTON, JEVON Unavailable [address] + [place] [address] EDINGTON, FRANK Unavailable Unavailable Unavailable FRANKLIN, CLIFFORD Unavailable Unavailable + EDINGTON, JEVON Unavailable [address] + [place] [address] EDINGTON, FRANK Unavailable Unavailable Unavailable FRANKLIN, CLIFFORD Unavailable Unavailable + EDINGTON, JEVON Unavailable [address] + [place] [address] EDINGTON, FRANK Unavailable Unavailable Unavailable FRANKLIN, CLIFFORD Unavailable Unavailable + EDINGTON, JEVON Unavailable [address] + [place] [address] EDINGTON, FRANK Unavailable Unavailable Unavailable FRANKLIN, CLIFFORD Unavailable Unavailable + EDINGTON, JEVON Unavailable [address] + [place] [address] EDINGTON, FRANK Unavailable Unavailable Unavailable FRANKLIN, CLIFFORD Unavailable Unavailable + [employer] Unavailable [address] + [place] [address] EDINGTON, JEVON Unavailable Unavailable [phone] [place] [address] FRANKLIN, CLIFFORD Unavailable Unavailable + [place] [address] [employer] Unavailable [address] + [place] [address] MIGUEL JEVON Unavailable Unavailable [phone] [place] [address] FRANKLIN, CLIFFORD Unavailable Unavailable + [place] [address] EDINGTON, JEVON Unavailable [address] + [place] [address] EDINGTON FRANK Unavailable Unavailable Unavailable FRANKLIN, CLIFFORD Unavailable Unavailable + EDINGTON JEVON Unavailable [address] + [place] [address] EDINGTON, FRANK Unavailable Unavailable Unavailable FRANKLIN, CLIFFORD Unavailable Unavailable + [employer] Unavailable [address] + [place] [address] CLAUDEGTON, JEVON Unavailable . [phone] [place] [address] FRANKLIN, CLIFFORD Unavailable . + [place] [address] [employer] Unavailable [address] + [place] [address] EDINGTON, JEVON Unavailable Unavailable [phone] FRANKLIN, CLIFFORD Unavailable Unavailable + EDINGTON, JEVON Unavailable [address] + [place] [address] EDINGTON, FRANK Unavailable Unavailable Unavailable FRANKLIN, CLIFFORD Unavailable Unavailable + [employer] Unavailable [address] + [place] [address] EDINGTON, JEVON Unavailable Unavailable [phone] FRANKLIN, CLIFFORD Unavailable Unavailable + EDINGTON, JEVON Unavailable [address] + [place] [address] EDINGTON, FRANK Unavailable Unavailable Unavailable FRANKLIN, CLIFFORD Unavailable Unavailable + EDINGTON, JEVON Unavailable [address] + [place] [address] EDINGTON, FRANK Unavailable Unavailable Unavailable FRANKLIN, CLIFFORD Unavailable Unavailable + [employer] Unavailable [address] + [place] [address] EDINGTON, JEVON Unavailable Unavailable [phone] FRANKLIN, CLIFFORD Unavailable Unavailable + [employer] Unavailable [address] + [place] [address] EDINGTON, JEVON Unavailable Unavailable [phone] FRANKLIN, CLIFFORD Unavailable Unavailable + EDINGTON, JEVON Unavailable [address] + [place] [address] EDINGTON, FRANK Unavailable Unavailable Unavailable FRANKLIN, CLIFFORD Unavailable Unavailable + EDINGTON, JEVON Unavailable [address] + [place] [address] EDINGTON, FRANK Unavailable Unavailable Unavailable FRANKLIN, CLIFFORD Unavailable Unavailable + EDINGTON, JEVON Unavailable [address] + [place] [address] EDINGTON, FRANK Unavailable Unavailable Unavailable FRANKLIN, CLIFFORD Unavailable Unavailable + EDINGTON, JEVON Unavailable [address] + [place] [address] EDINGTON, FRANK Unavailable Unavailable Unavailable FRANKLIN, CLIFFORD Unavailable Unavailable + EDINGTON, JEVON Unavailable [address] + [place] [address] EDINGTON, FRANK Unavailable Unavailable Unavailable FRANKLIN, CLIFFORD Unavailable Unavailable + Care Team Providers Name Role Phone HUSEYIN RUBY Admitting Unavailable HUSEYIN RUBY Attending Unavailable UMAPATHY, KANDASMY Admitting Unavailable UMAPATHY, KANDASMY Attending Unavailable UMREJITHY, KANDASMY Referring Unavailable UNKNOWN, PCP Primary Care Unavailable Joie Whitaker Attending Unavailable Kip, Gracy Primary Care Unavailable MoodisJoie diamond Referring Unavailable Suzanne Ferris Attending Unavailable Moodispamelisa, Joie Attending Unavailable MoodispaJoie vincent Referring Unavailable Kip, Gracy Primary Care Unavailable Swathi Emery Attending Unavailable Moodispamelisa, Joie Attending Unavailable MoodispaJoie vincent Referring Unavailable Kip, Gracy Primary Care Unavailable Gopal Encarnacion Attending Unavailable Kip, Gracy Referring Unavailable Kip, Gracy Primary Care Unavailable Moodisdara, Joie Attending Unavailable Moodispamelisa, Joie Referring Unavailable Kip, Gracy Primary Care Unavailable Moodisdara, Joie Attending Unavailable Kip, Gracy Primary Care Unavailable Radha Guzman Attending Unavailable Kip, Gracy Referring Unavailable Radha Guzman Attending Unavailable Kip, Gracy Referring Unavailable Kip, Gracy Primary Care Unavailable Moodisdara, Joie Attending Unavailable Kip, Gracy Primary Care Unavailable Moodmiky, Joie Attending Unavailable MoodJoie bolaños Referring Unavailable Kip, Gracy Primary Care Unavailable Radha Doyle Attending Unavailable Radha Guzman Attending Unavailable Kip, Gracy Referring Unavailable Kip, Gracy Attending Unavailable Kip, Gracy Referring Unavailable Kip, Gracy Primary Care Unavailable Joie Whitaker Consulting Unavailable Moodisdara, Joie Attending Unavailable Kip, Gracy Referring Unavailable Kip, Gracy Primary Care Unavailable Kip, Gracy Primary Care Unavailable Rocco Ayala Attending Unavailable Radha Doyle Attending Unavailable Kip, Gracy Primary Care Unavailable Rocco Ayala Attending Unavailable Joie Whitaker Attending Unavailable DominiqueisJoie diamond Referring Unavailable Kip, Gracy Primary Care Unavailable MoodJoie bolaños Attending Unavailable Kip, Gracy Referring Unavailable Kip, Gracy Primary Care Unavailable Radha Guzman Attending Unavailable KipGracy gonzalez Referring Unavailable MoodisJoie diamond Attending Unavailable MoodisJoie diamond Referring Unavailable Kip, Gracy Primary Care Unavailable Kip, Gracy Primary Care Unavailable Joie Randle Admitting Unavailable Shantal Palmer Consulting Unavailable Loki Raines Attending Unavailable Sandie Sanabria Consulting Unavailable IsckarusSurjit Consulting Unavailable Suzanne Ferris Attending Unavailable Joie Whitaker Attending Unavailable Kip, Gracy Referring Unavailable Kip, Gracy Attending Unavailable Kip, Gracy Referring Unavailable Kip, Gracy Primary Care Unavailable Thomas, Radha Attending Unavailable Gracy Cuellar Referring Unavailable Joie Whitaker Attending Unavailable Joie Whitaker Referring Unavailable Kip Gracy Primary Care Unavailable Joie Whitaker Attending Unavailable Joie Whitaker Referring Unavailable Kip, Gracy Primary Care Unavailable Gracy Cuellar Attending Unavailable Kip, Gracy Primary Care Unavailable Gracy Cuellar Referring Unavailable Joie Whitaker Consulting Unavailable Gracy Cuellar Attending Unavailable Kip, Gracy Primary Care Unavailable Joie Randle Admitting Unavailable Randle, Joie Attending Unavailable Kip, Gracy Primary Care Unavailable Joie Randle Consulting Unavailable Razia, Joie Admitting Unavailable Kip, Gracy Primary Care Unavailable Shantal Palmer Consulting Unavailable Gracy Danielson Attending Unavailable Gracy Danielson Consulting Unavailable Gracy Danielson Attending Unavailable Gracy Danielson Referring Unavailable KipGracy gonzalez Primary Care Unavailable Joie Randle Admitting Unavailable Kip, Gracy Primary Care Unavailable Shantal Palmer Consulting Unavailable Gracy Danielson Attending Unavailable Daniele, Sandie Consulting Unavailable Gracy Danielson Consulting Unavailable Joie Randle Admitting Unavailable KipGracy gonzalez Primary Care Unavailable Spencer, Shantal Consulting Unavailable Gracy Danielson Attending Unavailable Daniele, Sandie Consulting Unavailable Gracy Danielson Consulting Unavailable Joie Randle Admitting Unavailable KipGracy gonzalez Primary Care Unavailable Spencer Shantal Consulting Unavailable Gracy Danielson Attending Unavailable Sanabria, Sandie Consulting Unavailable Gracy Danielson Consulting Unavailable Joie Randle Admitting Unavailable KipGracy gonzalez Primary Care Unavailable Spencer Shantal Consulting Unavailable Gracy Danielson Attending Unavailable Sanabria, Sandie Consulting Unavailable Dmitri, Mansour Consulting Unavailable Gracy Danielson Consulting Unavailable Joie Randle Admitting Unavailable KipGracy gonzalez Primary Care Unavailable Ethan Palmerine Consulting Unavailable Loki Raines Attending Unavailable Daniele Sandie Consulting Unavailable Isckarus, Mansour Consulting Unavailable Loki Raines Consulting Unavailable Joie Randle Admitting Unavailable Vera Statnon Attending Unavailable KipGracy gonzalez Primary Care Unavailable Shantal Palmer Consulting Unavailable Daniele Sandie Consulting Unavailable Isckarus, Mansour Consulting Unavailable Loki Raines Consulting Unavailable Loki Raines Attending Unavailable Joie Randle Admitting Unavailable Kip, Gracy Primary Care Unavailable Spencer, Shantal Consulting Unavailable Sanabria, Sandie Consulting Unavailable Isckarus, Mansour Consulting Unavailable Kotsonis, Loki F Consulting Unavailable Joie Randle Admitting Unavailable Vera Stanton Attending Unavailable Kip, Gracy Primary Care Unavailable Spencer, Shantal Consulting Unavailable Sanabria, Sandie Consulting Unavailable Isckarus, Mansour Consulting Unavailable Kotsonis, Loki F Consulting Unavailable Randle, Joie Admitting Unavailable Kip, Gracy Primary Care Unavailable Spencer, Shantal Consulting Unavailable Kotsonis, Loki F Attending Unavailable Sanabria, Sandie Consulting Unavailable Isckarus, Mansour Consulting Unavailable Kotsonis, Loki F Consulting Unavailable Isckarus, Mansour Attending Unavailable Kip, Gracy Primary Care Unavailable Radha Guzman Attending Unavailable Kip, Gracy Referring Unavailable Destiney, Ricardo Attending Unavailable Ricardo Cabello Referring Unavailable Kip, Gracy Primary Care Unavailable Kip, Gracy Attending Unavailable Kip, Gracy Referring Unavailable Kip, Gracy Primary Care Unavailable KipGracy gonzalez Attending Unavailable Kip Gracy Referring Unavailable Kip, Gracy Primary Care Unavailable JULIETH LAND Admitting Unavailable JULIETH LAND Attending Unavailable KIP, GRACY A Primary Care Unavailable CONSULT, CARDIOLOGY - EP Consulting Unavailable BHAVIK HEAD Attending Unavailable JULIETH LAND Referring Unavailable KIP, GRACY A Primary Care Unavailable BHAVIK HEAD Attending Unavailable JULIETH LAND Referring Unavailable KIP, GRACY A Primary Care Unavailable AUGOSTINI, RSA MARY Attending Unavailable AUGOSTINI, RSA MARY Referring Unavailable KIP, GRACY A Primary Care Unavailable AUGOSTINI, RSA MARY Attending Unavailable AUGOSTINI, RSA MARY Referring Unavailable KIP, GRACY A Primary Care Unavailable AUGOSTINI, RSA MARY Attending Unavailable AUGOSTINI, RSA MARY Referring Unavailable KIP, GRACY A Primary Care Unavailable AUGOSTINI, RSA MARY Attending Unavailable AUGOSTINI, RSA MARY Referring Unavailable KIP, GRACY A Primary Care Unavailable AUGOSTINI, RSA MARY Attending Unavailable AUGOSTINI, RSA MARY Referring Unavailable KIP, GRACY A Primary Care Unavailable PRICE STOVALL Attending Unavailable KIP, GRACY A Referring Unavailable KIP, GRACY A Primary Care Unavailable AUGOSTINI, RSA MARY Attending Unavailable AUGOSTINI, RSA MARY Referring Unavailable KIP, GRACY A Primary Care Unavailable KIP, GRACY A Attending Unavailable KIP, GRACY A Referring Unavailable KIP, GRACY A Primary Care Unavailable HOUMSSE, MAHMOUD Attending Unavailable KIP, GRACY A Referring Unavailable KIP, GRACY A Primary Care Unavailable JULIETH LAND Attending Unavailable KIP, GRACY A Referring Unavailable KIP, GRACY A Primary Care Unavailable KIP, GRACY A Primary Care Unavailable HOUMSSE, MAHMOUD Admitting Unavailable HOUMSSE, MAHMOUD Attending Unavailable KIP, GRACY A Referring Unavailable HOUMSSE, MAHMOUD Attending Unavailable HOUMSSE, MAHMOUD Referring Unavailable KIP, GRACY A Primary Care Unavailable CHOLO BECKER Admitting Unavailable LGTERSSON, ELMER Attending Unavailable CHOLO BECKER Referring Unavailable RILEY BAUMANN Referring Unavailable JANAE CAO (DIRECTOR OF INDUSTRIAL RELATIONS) Referring Unavailable BAL AIKEN Referring Unavailable BORDEIANU, DIMITREEA Referring Unavailable BORDEIANJosé Miguel, DIMITREEA Referring Unavailable BAL AIKEN Referring Unavailable PETTERSSON, GOSTA Referring Unavailable ROHIT OLIVAS Attending Unavailable KRISTI, WILVER Referring Unavailable KRISTI, WILVER Referring Unavailable NELLI, BAL Referring Unavailable KRISTI, WILVER Referring Unavailable KRISTI, WILVER Attending Unavailable PETTERSSON, GOSTA Referring Unavailable PROBLEMS PROBLEMS DATE TYPE CONDITION / CODE ATTENDING STATUS SOURCE 04/19/2018 Unknown Z95.5 - Presence of Moodispaw, 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 Joie [facility] implant and graft / Hospital Z95.5(ICD-10) Repository 04/15/2018 Unknown 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, Community unspecified / Hospital D50.9(ICD-10) Repository 04/15/2018 Unknown N17.9 - Acute kidney Gracy Cuellar Active [place] failure, unspecified Community / N17.9(ICD-10) Hospital Repository 03/31/2018 Unknown 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 / I25.10(ICD-10) 03/31/2018 Unknown I44.1 - Radha Guzman Active [place] Atrioventricular Community block, second degree Hospital / I44.1(ICD-10) Repository 03/31/2018 Unknown 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 / Community Z95.0(ICD-10) Hospital Repository 03/31/2018 Unknown R00.1 - Bradycardia, Radha Guzman Active [place] unspecified / Community R00.1(ICD-10) Hospital Repository 03/31/2018 Unknown I48.0 - Paroxysmal Radha Guzman Active [place] atrial fibrillation / Community I48.0(ICD-10) Hospital Repository 03/31/2018 Unknown I49.5 - Sick sinus Radha Guzman Active [place] syndrome / Community I49.5(ICD-10) Hospital Repository 03/15/2018 Unknown 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, 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 / Z95.2(ICD-10) Hospital Repository 03/15/2018 Unknown 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, 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 / Hospital I35.8(ICD-10) Repository 03/15/2018 Unknown I48.91 - Unspecified Moodispaw, Active [place] atrial fibrillation / [facility] I48.91(ICD-10) Hospital Repository 03/15/2018 Unknown Z98.890 - Other Moodispaw, Active [place] specified [facility] postprocedural [facility] Hospital / Z98.890(ICD-10) Repository 02/15/2018 Active 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 / [place] I33.0(ICD-10) Repository 03/22/2018 Unknown T82.6XXA - Infection Gracy Cuellar Active [place] and inflammatory Community reaction due to Hospital cardiac valve Repository prosthesis, initial encounter / T82.6XXA(ICD-10) 02/08/2018 Unknown I38 - Endocarditis, 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 / Community I38(ICD-10) Hospital Repository 02/08/2018 Unknown I44.30 - Unspecified Ricardo Cabello Active [place] atrioventricular Community block / Hospital I44.30(ICD-10) Repository 02/04/2018 Active Other acute PETTERSSON, Active [place] postprocedural pain / [facility] G89.18(ICD-10) [place] Repository 02/04/2018 Active Acute kidney failure, PETTERSSON, Active [place] unspecified / [facility] N17.9(ICD-10) [place] Repository 02/04/2018 Active Paroxysmal atrial PETTERSSON, Active [place] fibrillation / [facility] I48.0(ICD-10) [place] Repository 01/23/2018 Active Mild protein-calorie PETTERSSON, Active [place] malnutrition / [facility] E44.1(ICD-10) [place] Repository 01/23/2018 Active Moderate PETTERSSON, Active [place] protein-calorie [facility] Main malnutrition / [place] E44.0(ICD-10) Repository 01/23/2018 Active Dysphagia following PETTERSSON, 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 / [facility] I69.391(ICD-10) [place] Repository 01/23/2018 Active Anemia, unspecified / PETTERSSON, Active [place] D64.9(ICD-10) [facility] [place] Repository 01/23/2018 Active Thrombocytopenia, PETTERSSON, Active [place] unspecified / [facility] D69.6(ICD-10) [place] Repository 01/23/2018 Active Other pancytopenia / PETTERSSON, Active [place] D61.818(ICD-10) [facility] [place] Repository 01/22/2018 Active Acute posthemorrhagic PETTERSSON, Active [place] anemia / D62(ICD-10) [facility] [place] Repository 01/22/2018 Active Hepatorenal syndrome PETTERSSON, Active [place] / K76.7(ICD-10) [facility] [place] Repository 01/21/2018 Active Presence of other PETTERSSON, Active [place] specified devices / [facility] Z97.8(ICD-10) [place] Repository 01/13/2018 Active Hyperkalemia / PETTERSSON, Active [place] E87.5(ICD-10) [facility] [place] Repository 12/24/2017 Active Generalized enlarged PETTERSSON, Active [place] lymph nodes / [facility] R59.1(ICD-10) [place] Repository 12/24/2017 Active Contusion of PETTERSSON, Active [place] abdominal wall, [facility] Main initial encounter / [place] S30.1XXA(ICD-10) Repository 12/24/2017 Active Dependence on renal PETTERSSON, Active [place] dialysis / [facility] Z99.2(ICD-10) [place] Repository 12/24/2017 Active Other specified PETTERSSON, Active [place] coagulation defects / [facility] D68.8(ICD-10) [place] Repository 12/24/2017 Active Acute nephritic PETTERSSON, Active [place] syndrome with [facility] Main unspecified [place] morphologic changes / Repository N00.9(ICD-10) 12/24/2017 Active Other fluid overload PETTERSSON, Active [place] / E87.79(ICD-10) [facility] [place] Repository 12/24/2017 Active Anuria and oliguria / PETTERSSON, Active [place] R34(ICD-10) [facility] [place] Repository 12/24/2017 Active Hypo-osmolality and PETTERSSON, Active [place] hyponatremia / [facility] E87.1(ICD-10) [place] Repository 12/24/2017 Active Other disorders of PETTERSSON, Active [place] plasma-protein [facility] Main metabolism, not [place] elsewhere classified Repository / E88.09(ICD-10) 12/24/2017 Active Fluid overload, PETTERSSON, Active [place] unspecified / [facility] E87.70(ICD-10) [place] Repository 12/24/2017 Active Iron deficiency PETTERSSON, 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) [place] / D50.0(ICD-10) Repository 12/24/2017 Active Essential (primary) PETTERSSON, Active [place] hypertension / [facility] Main I10(ICD-10) [place] Repository 12/24/2017 Active Contusion of PETTERSSON, Active [place] abdominal wall, [facility] Main subsequent encounter [place] / S30.1XXD(ICD-10) Repository 12/24/2017 Active Presence of PETTERSSON, Active [place] prosthetic heart [facility] Main valve / Z95.2(ICD-10) [place] Repository 12/24/2017 Active Other specified PETTERSSON, Active [place] abnormal findings of [facility] Main blood chemistry / [place] R79.89(ICD-10) Repository 02/26/2018 Unknown D64.9 - Anemia, Kotsonis, Active [place] unspecified / [facility] D64.9(ICD-10) Hospital Repository 02/26/2018 Unknown D69.6 - Kotsonis, Active [facility] Thrombocytopenia, [facility] unspecified / Hospital D69.6(ICD-10) Repository 02/26/2018 Unknown N19 - Unspecified Kotsonis, Active [place] kidney failure / [facility] N19(ICD-10) Hospital Repository 11/17/2017 Unknown I51.7 - Cardiomegaly Radha Guzman Active [place] / I51.7(ICD-10) [facility] Repository 11/04/2017 Unknown E78.5 - [place], Active [place] Hyperlipidemia, [facility] unspecified / Hospital E78.5(ICD-10) Repository 11/04/2017 Unknown 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.0 - Rheumatic [place], Active [place] disorders of both [facility] mitral and aortic Hospital valves / Repository I08.0(ICD-10) 11/04/2017 Unknown Z79.01 - [facility] [place], Active [place] (current) use of [facility] 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s / Hospital Z79.01(ICD-10) Repository 10/29/2017 Admitting Cereb infrc due to UMAPATHY, Active [place] diagnosis [facility] or [facility] stenosis of unsp Repository verteb art / I63.219(ICD-10) 10/29/2017 Unknown Cereb infrc due to UMAPATHY, Active [facility] or [facility] stenosis of unsp Repository verteb art / I63.219(ICD-10) 10/29/2017 Unknown Presence of UMAPATHY, Active [facility] prosthetic heart [facility] valve / Z95.2(ICD-10) Repository 10/29/2017 Unknown [facility] (current) UMAPATHY, Active [facility] use of 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s [facility] / Z79.01(ICD-10) Repository 10/29/2017 Unknown Allergy status to UMAPATHY, Active [facility] penicillin / [facility] Z88.0(ICD-10) Repository 10/29/2017 Unknown Presence of cardiac UMAPATHY, Active [facility] pacemaker / [facility] Z95.0(ICD-10) Repository 10/29/2017 Unknown Bariatric surgery UMAPATHY, Active [facility] status / [facility] Z98.84(ICD-10) Repository 10/29/2017 Unknown Unspecified atrial UMAPATHY, Active [facility] fibrillation / [facility] I48.91(ICD-10) Repository 10/29/2017 Unknown Nicotine dependence, UMAPATHY, Active [facility] unspecified, [facility] uncomplicated / Repository F17.200(ICD-10) 10/29/2017 Unknown Facial weakness / UMAPATHY, Active [facility] R29.810(ICD-10) [facility] Repository 10/29/2017 Unknown Dysarthria and UMAPATHY, Active [facility] anarthria / [facility] R47.1(ICD-10) Repository 02/26/2018 Unknown R47.81 - Slurred LucyRocco Active [facility] speech / Community R47.81(ICD-10) Hospital Repository 02/26/2018 Unknown R51 - Headache / LucyRocco Active [place] R51(ICD-10) [facility] Repository 10/26/2017 Unknown E03.9 - KipGracy gonzalez Active [place] Hypothyroidism, Community unspecified / Hospital E03.9(ICD-10) Repository 06/09/2017 Admitting Persistent atrial HOUMSSE, [facility] diagnosis fibrillation (HCC) / [facility] I48.1(ICD-10) [facility] Repository 06/09/2017 [facility] diagnosis follow-up examination [facility] after completed [facility] treatment for Center conditions other than Repository malignant neoplasm / Z09(ICD-10) 06/04/2017 Admitting Follow-up / 145() HOUMSSE, Active [facility] diagnosis [facility] Repository 05/07/2017 Admitting Rheumatic disorders [facility], [facility] diagnosis of both mitral and [facility] aortic valves / [facility] I08.0(ICD-10) Center Repository 05/07/2017 Admitting Personal history of RUSHING, [facility] diagnosis peptic ulcer disease [facility] / Z87.11(ICD-10) [facility] Repository 05/07/2017 Admitting Counseling, RUSHING, Active [facility] diagnosis unspecified / [facility] Z71.9(ICD-10) [facility] Repository 05/07/2017 Admitting Atherosclerotic heart RUSHING, [facility] diagnosis disease of [place] [facility] coronary artery [facility] without angina Center pectoris / Repository I25.10(ICD-10) 05/07/2017 Admitting Nicotine dependence, [facility] diagnosis other tobacco [facility] product, [facility] uncomplicated / Center F17.290(ICD-10) Repository 05/07/2017 Admitting Personal history of RUSHING, Active [facility] diagnosis nicotine dependence / [facility] Z87.891(ICD-10) [facility] Repository 05/07/2017 Admitting Hyperlipidemia, RUSHING, Active [facility] diagnosis unspecified / [facility] E78.5(ICD-10) [facility] Repository 05/07/2017 Admitting Other specified RUSHING, Active [facility] diagnosis symptoms and signs [facility] involving the [facility] circulatory and Center respiratory systems / Repository R09.89(ICD-10) 05/07/2017 Admitting Hypothyroidism, RUSHING, Active [facility] diagnosis unspecified / [facility] E03.9(ICD-10) [facility] Repository 05/07/2017 Admitting Other specified RUSHING, Active [facility] diagnosis postprocedural states [facility] / Z98.890(ICD-10) [facility] Repository 05/07/2017 Admitting Anemia, unspecified / [place]ING, Active [facility] diagnosis D64.9(ICD-10) [facility] Repository 05/07/2017 Admitting Sick sinus syndrome RUSHING, Active [facility] diagnosis (HCC) / I49.5(ICD-10) [facility] Repository 05/07/2017 Admitting Presence of RUSHING, Active [facility] diagnosis prosthetic heart [facility] valve / Z95.2(ICD-10) [facility] Repository 03/25/2017 Admitting Unspecified atrial RUSHING, Active [facility] diagnosis fibrillation (HCC) / [facility] I48.91(ICD-10) [facility] Repository 04/20/2017 Admitting Encounter for other HEAD, BHAVIK Active [facility] diagnosis preprocedural University examination / [facility] Z01.818(ICD-10) Center Repository PROCEDURES PROCEDURES No Procedure Records FoundRESULTS RESULTS CBC W/DIFF, AUTOMATED Collected: 04/14/2018 Status: F Source: LUX 8:55 AM [facility] REPOSITORY TYPE CODE TESTS RESULT OUT OF RANGE REFERENCE UNITS LAB L100.1000 4.4-11.0 K/mm3 Normal WBC 4.5 LAB L100.1200 4.6-6.2 M/mm3 Low RBC 3.03 LAB L100.1300 13.0-16.5 g/dl Low HGB 10.5 LAB L100.1400 40-54 % Low HCT 34.5 LAB L100.1500 80-94 fL High MCV 113.9 LAB L100.1600 27.0-32.0 pg High MCH 34.7 LAB L100.1700 32-36 g/gl Low MCHC 30.4 LAB L100.1810 11.6-14.6 % High RDW CV 17.7 LAB L100.1820 35.1-43.9 fl High RDW SD 73.9 LAB L100.1900 150-450 K/mm3 Normal PLT 153 LAB L100.2000 6.2-12.0 fl Normal MPV 9.8 LAB L100.2100 47-70 % Normal NEUT% 58.0 LAB L100.2200 19-41 % Normal LY% 30.1 LAB L100.2300 0-10 % Normal MONO% 7.1 LAB L100.2400 0-5 % Normal EO% 4.2 LAB L100.2500 0-1 % Normal BASO% 0.4 LAB L100.2550 0.0-0.9 % Normal IM GRAN % 0.200 Result Comment: IG% - Immature Granulocytes (promyelocytes, myelocytes and metamyelocytes) > 1% indicates that a LEFT SHIFT is Present. LAB L100.2620 2.0-7.7 X10 3/uL Normal Absolute Neut 2.6 LAB L100.2720 0.83-4.51 X10 3/ul Normal Absolute Lymph 1.35 LAB L100.4500 SMEAR Normal COMMENT Result Comment: SLIDE SCANNED - 1+ ANISO. Performed By: #### L100.0100 #### [facility] [address] [place], [address] BASIC METABOLIC Collected: 04/14/2018 Status: F Source: LUX PROFILE (BMP) 8:55 AM [facility] REPOSITORY TYPE CODE TESTS RESULT OUT OF RANGE REFERENCE UNITS LAB L501.0100 74-106 mg/dL Normal GLU 74 Result Comment: Please note revised GLUCOSE reference range effective 2017. LAB L501.1000 7-18 mg/dL High BUN 50 LAB L501.1100 0.70-1.30 mg/dL High CREAT,SERUM 2.57 Result Comment: The validity of the calculated GFR AND GFRAA in patients over 70 years has not been determined. Clinical correlation is essential. LAB L501.1110 >60 mL/min Low EST GFR 27 Result Comment: Non- GFR Calc LAB L501.1115 >60 mL/min Low EST GFR - AA 33 Result Comment: GFR Calc LAB L501.1300 10-20 RATIO Normal BUN/CRE 19.5 LAB L501.2200 8.5-10.1 mg/dL CA Normal 9.0 LAB L501.5300 136-145 mmol/L NA Normal 141 LAB L501.5600 3.5-5.1 mmol/L High K alert 6.1 Result Comment: Critical Result(s) Called to [facility] at: 10:17:54 04/14/2018 by: CCrytzer LAB L501.5900 98-107 mmol/L High CL 113 LAB L501.6100 21.0-32.0 mmol/L Normal CO2 21.0 LAB L501.6200 5-15 Normal 7 GAP Performed By: #### L500.2500, L503.6150, L503.6550 #### [facility] [address] [place], [place], [id number] IRON Collected: 04/14/2018 Status: F Source: [place] 8:55 AM [facility] REPOSITORY TYPE CODE TESTS RESULT OUT OF RANGE REFERENCE UNITS LAB L503.6150 65-175 ug/dL Normal IRON 75 Performed By: #### L500.2500, L503.6150, L503.6550 #### [facility] [address] [place], [address] FERRITIN Collected: 04/14/2018 Status: F Source: [place] 8:55 AM [facility] REPOSITORY TYPE CODE TESTS RESULT OUT OF RANGE REFERENCE UNITS LAB L503.6550 26-388 ng/mL Normal FERRITIN 208 Performed By: #### L500.2500, L503.6150, L503.6550 #### [facility] [address] [place], [place], [id number] CR - HISTORY AND Observed: 04/01/2018 Status: F Source: [place] PHYSICAL 5:27 PM [facility] REPOSITORY [facility] Re[facility] [address] [place] [address] CR - History AND Physical MR#: [id number] Acct: [id number] Name: FRANK RIVERA Rep #: [id number] : 1955 63 From: Levi Hermosillo RN PCP: Gracy Cuellar DO DOS: 04/01/18 CR - History AND Physical - General Arrival date:: 04/01/18 Arrival time:: 12:44 Date of Referral:: 04/01/18 Date of CR Evaluation:: 04/01/18 Referring Physician: Primary Diagnosis: Aortic valve replacement, mitral valve repair - History of Present Cardiac Event Onset Date: Enter Onset Date of cardiac illnesses in Comment field below Current stable Angina Pectoris:: No Acute Myocardial Infarction within 12 months:: No Coronary Artery Bypass Graft:: No Heart valve replacement or repair:: Yes - 01/19/18 PTCA or coronary stenting:: No Heart or Heart-Lung Transplant:: No Heart Failure EF <35%:: No Type of Symptoms:: edema, fatigue Interventions with present event:: In hospital 2 [id number] units of blood, remains anemic, infection in blood, Were there any complications?: Current renal hemodyalysis - Medications Home Medications: Ambulatory Orders Medication Instructions Recorded levothyroxine 200 mcg tablet 200 mcg PO QDAY tab 03/26/17 - Allergies Allergies/Adverse Reactions: Allergies Penicillins Allergy (Verified 03/15/18 11:10) Hives - Sleep Disorder Evaluation Hx of Sleep Apnea: No Do you snore loudly (louder than talking or can be heard through closed doors)?: No Do you often feel tired/ fatigued/ sleepy during daytime?: Yes Has anyone observed you stop breathing during sleep?: No History of Hypertension (for STOP score): Yes STOP Results: Positive Advanced Directives - Advanced Directives Power of Automobile Appraiser: Yes Living Will: Yes Advance Directives Information Provided: No Advance Directives on File: Yes DNR Order?:: No Past Medical History - Past Medical Illness Medical History: Past Medical History (Last Reviewed 03/15/18 @ 11:14 by Suzanne Ferris) Nonrheumatic tricuspid valve regurgitation (Acute) I36.1 Aortic valve endocarditis (Acute) Onset Date: 12/2017 I35.8 aortic valve with root debridement and replacement with 26mm aortic homograft 01/19/18 Acute CVA (cerebrovascular accident) (Acute) Onset Date: 10/27/17 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) with 40 mm At[employer]ure Atriclip with Dr. 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 Trifecta pericardial valve; Atherosclerotic heart disease of [place] coronary artery without angina pectoris (Chronic) I25.10 Atrioventricular block, type I (Acute) I44.1 Premature ventricular contraction (Acute) I49.3 Abnormal EKG (Acute) R94.31 Hyperlipidemia (Chronic) E78.5 Ventricular hypertrophy (Chronic) I51.7 Bruit of left carotid artery (Acute) R09.89 Anemia, iron deficiency D50.9 Hypothyroidism E03.9 Retinal embolus H34.9 Tobacco abuse Z72.0 - Past Surgical History Surgical History: Past Surgical History (Last Reviewed 03/15/18 @ 11:14 by Suzanne Ferris) S/P tricuspid valve repair (Resolved) Onset Date: 01/19/18 Z98.890 S/P aortic valve replacement (Chronic) Z95.[address] [employer] Tirfecta pericardial valve 05/07/17; aortic valve with root debridement and replacement with 26mm aortic homograft 01/19/18 @ [facility] History of carpal tunnel surgery Z92.89 History of gastric bypass Z98.84 History of knee surgery Z98.890 Surgical History: coronary bypass surgery - AVR Apr 2017, Min-en-y 1996, pacemaker implantation - Family History Summary Family History: Family History (Last Reviewed 03/15/18 @ 11:14 by Suzanne Ferris) Father CAD (coronary artery disease) Mother CAD (coronary artery disease) Thyroid disorder Sister Thyroid cancer Social History - Smoking History Smoking Status: Former smoker Hx Smoking Cessation Date: 10/21/17 - Alcohol Use Alcohol Usage: No - Substance Abuse Hx Substance Use: No - Occupation Occupation (List type of work in comments):: Employed - Hobbies, Recreation, Social Activities Recreational Activities: I can hardly do any recreational activities Social Environment - Status Marital Status: Single - Current Living Arrangements Living Environment:: Alone - Children How many children do you have?: 2 Do any of your children live nearby?: No - Safety Do you feel safe in your surroundings?: Yes - Assistance Do you need any assistance at home?: no Review of Systems - Review of Systems Hints: Right click = Denies ([place]). Left click = Reports ([place]) Review of Present Symptoms: Reports: Shortness of Breath with Exertion, Fatigue, Appetite - Normal, Appetite - Special Diet - Cardiac, renal diet, Sleep - Normal. Denies: Shortness of Breath at Rest, PVD, Operative Discomfort, Angina, Wound Healing, Dizziness/Lightheadedness, Heart Arrhythmia/Irregularities, Sexual Changes - Pain Is Patient Pain Free?: Yes Risk Factor Assessment - Chief Complaint Chief Complaint: Fatigue and need to get back to work. - Vital Signs Pulse Ox: 99 - Pulse Pulse Rate: 66 Pulse Rhythm: Regular - Hypertension Blood Pressure Sitting - Right Arm: 171/97 Blood Pressure Sitting - Left Arm: 160/90 - Stress Stress: Recent, Work-related - Diabetes Nutrition Referral for Diabetes: No - Obesity Height: 6 ft 4 in Weight:: 208 lb Weight in Pounds: 208.0 lbs Body Mass Index (BMI): 25.3 Nutritional Referral for Obesity: No - Physical Inactivity Physical Inactivity: None - Risk Stratification Risk Guidelines: Lowest Risk: Risk Factor for Dyslipidemia, Risk Factor for Diabetes, Risk Factor for Obesity, Risk Factor for Sedentary Lifestyle, Moderate Risk: Risk Factor for Smoking, Risk Factor for Depression, Highest Risk: Risk Factor for Hypertension - For Smoking Smoking Risk Guidelines: Smoking Low Risk: None or quit greater than 6 months ago. Smoking Moderate Risk: Smoker or quit 6 months or less ago. Smoking High Risk: Smoker - For Dyslipidemia Dyslipidemia Risk Guidelines: Low Risk: Moderate Risk: High Risk: 15-25% fat 25.1-29% fat >/= 30% fat. <7% sat fat 7-9% sat fat >9% sat fat. <150 mg chol 150-299 mg chol >/= 300 mg chol. LDL <100 LDL 100-129 LDL >/= 130. Chol/HDL ratio <5.0 Chol/HDL ratio 5.0-6.0 Chol/HDL ratio >6.0. Triglycerides <100 Triglycerides 100-149 Triglycerides >/= 150 - For Diabetes Mellitus Diabetes Risk Guidelines: Diabetes Low Risk: HgA1c <6.5% and/or FBG <120. Diabetes Moderate Risk: HgA1c 6.6-7.9% and/or FBG 120- 180. Diabetes High Risk: HgA1c >/= 8% and/or FBG >180 - For Obesity/Overweight Obesity/Overweight Risk Guidelines: Obesity Low Risk: BMI <25.0. Obesity Moderate Risk: BMI 25-29.9. Obesity High Risk: BMI >/= 30.0 - For Hypertension Hypertension Risk Guidelines: Hypertension Low Risk: Systolic <120 and Diastolic <80. Hypertension Moderate Risk: Systolic 120-139 and Diastolic 80-89. Hypertension High Risk: Systolic >/= 140 and Diastolic >/= 90 - For Sedentary Lifestyle Sedentary Lifestyle Risk Guidelines: Sedentary Lifestyle Low Risk: >/= 1,500 kcal/week. Sedentary Lifestyle Moderate Risk: 700-1,499 kcal/week. Sedentary Lifestyle High Risk: < 700 kcal/week - For Depression Depression Risk Guidelines: Depression Low Risk: Not clinically depressed. Depression Moderate Risk: Mildly depressed. Depression High Risk: Clinically depressed - Family History Family History: Family History (Last Reviewed 03/15/18 @ 11:14 by Suzanne Ferris) Father CAD (coronary artery disease) Mother CAD (coronary artery disease) Thyroid disorder Sister Thyroid cancer Motivation - Motivation to Participate On a scale of 1 to 10, how prepared are you to commit to attending program?: 10 04/01/18 1313 <Electronically signed by Levi Hermosillo RN> Date Levi Hermosillo RN Outcome assessment reviewed. Exercise plan approved as documented. Treatment plan and goals support patient needs/abilities. Continue with current plan. I certify the patient demonstrates improvement and remains willing and capable of participation. the patient continues to benefit from cardiac rehab services/training. The patient may continue at current intensity, endurance and modality and progress per protocol. 04/01/18 1727 <Electronically signed by Joie Whitaker MD> Cosigner Signature: Date Joie Whitaker MD CC: Signed PACEMAKER CHECK Observed: 03/30/2018 Status: F Source: LUX 4:17 PM [facility] REPOSITORY [facility] [address] [place] [address] Pacemaker Check Date of Service: 03/30/18 1259 MR#: [id number] Acct: [id number] Name: FRANK RIVERA Rep #: [id number] : 1955 From: Radha Guzman Age/Sex: 63/M Location: [facility] [place] Status: Signed Billing Codes PM Device Codes: PM Dev Jaylin Howell 03/30/18 1301 <Electronically signed by Radha Guzman > Date Radha Guzman 03/30/18 1617<Electronically signed by Joie Whitaker MD> Cosignjosh Signature: Date (if applicable) Joie Whitaker MD CC: CARDIOLOGY VISIT Observed: 03/15/2018 Status: F Source: LUX REPORT 2:20 PM [facility] REPOSITORY [facility] [address] [place] [address] OFFICE VISIT Date of Service: 03/15/18 MR#: [id number] Acct: [id number] Name: FRANK RIVERA Rep #: [id number] : 1955 Provider: Joie Whitaker MD Age/Sex: 62/M Location: [facility] – [place] Status: Signed HPI HPI Details: FRANK RIVERA, is a 62 M who presents to the office today for outpatient cardiovascular follow-up. Since his last outpatient cardiovascular visit he has been hospitalized at [facility] for concerns of his acute on chronic anemia as well as concerns of pancytopenia and concerns of underlying renal insufficiency. It appears that during his noncardiac evaluation he was diagnosed with his multiple noncardiovascular issues and subsequently required transfer to a tertiary care center for additional evaluation and care. It appears that he was transferred to the [facility] Main campus for further evaluation and care. 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 His [facility] care subsequently resulted in a redo open heart surgery which included aortic valve with root debridement and replacement with a 26 mm aortic homograft, a tricuspid valve repair, removal of his permanent pacemaker and pacemaker leads and subsequently placement of a new permanent pacemaker and epicardial leads on the RV and LV and right atrium with the generator being in the left upper quadrant area. He states he recuperated from his cardiovascular surgery better than anticipated. He has finished a long-term course of IV and oral antibiotic therapy. He states that the moment he has had no further recommendations from [facility] for additional follow-up of his infectious endocarditis barring some unforeseen event. He was recommended to continue to follow with cardiology for enrollment in cardiac rehabilitation. In the meantime he continues with issues with his chronic anemia and his chronic renal insufficiency. He is now on dialysis on a Thursday regimen. He has had no other symptoms of ongoing concerning chest discomfort, difficulty breathing, palpitations, near syncope or syncope, or unexplained fever, chills, or night sweats thought related to a cardiovascular etiology Intake Vital Signs03/15/18 Height 6 ft 4 in 03/15/18 Weight: 208 lb 03/15/18 Body Mass Index (BMI) 25.3 03/15/18 Blood Pressure 146/90 H Intake Visit Reasons: post [facility] Allergies Penicillins Allergy (Verified 03/15/18 11:10) Hives Medications levothyroxine 200 mcg tablet 200 mcg PO QDAY tab 03/26/17 [History Confirmed 03/15/18] cyanocobalamin (vit B-12) 500 mcg tablet 500 mcg PO QDAY 03/27/17 [History Confirmed 03/15/18] multivitamin tablet 1 tab PO QDAY 05/18/17 [History Confirmed 03/15/18] Acetaminophen [Tylenol] 500 mg PO Q4H PRN PRN 10/27/17 [History Confirmed 03/15/18] atorvastatin 80 mg tablet 80 mg PO DAILY #90 tab 12/01/17 [Rx Confirmed 03/15/18] aspirin 81 mg tablet,delayed release 162 mg PO DAILY tab 03/10/18 [History Confirmed 03/15/18] cholecalciferol (vitamin D3) 2,000 unit tablet 3,000 unit PO DAILY tab 03/10/18 [History Confirmed 03/15/18] darbepoetin tereza 60 mcg/0.3 mL in polysorbate injection syringe 60 mcg SC QWEEK ml 03/10/18 [History Confirmed 03/10/18] doxycycline hyclate 100 mg capsule 100 mg PO BID 03/10/18 [History Confirmed 03/15/18] thiamine HCl (vitamin B1) 100 mg tablet 100 mg PO DAILY 03/10/18 [History Confirmed 03/15/18] carvedilol 25 mg tablet 25 mg PO BID 03/15/18 [History Confirmed 03/15/18] pantoprazole 20 mg tablet,delayed release 40 mg PO BID tab 03/15/18 [History Confirmed 03/15/18] [facility] Medical History Nonrheumatic tricuspid valve regurgitation (Acute) Aortic valve endocarditis (Acute 12/2017) Acute CVA (cerebrovascular accident) (Acute 10/27/17) 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) [facility] current use of 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 (Chronic) Atrial fibrillation (Acute) Sinus bradycardia (Acute) Presence of permanent cardiac pacemaker (Chronic) Mitral valve insufficiency and aortic valve insufficiency (Chronic) Sick sinus syndrome (Chronic) SOB (shortness of breath) (Acute) Aortic stenosis (Chronic) 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, type I (Acute) Premature ventricular contraction (Acute) Abnormal EKG (Acute) Hyperlipidemia (Chronic) Ventricular hypertrophy (Chronic) Bruit of left carotid artery (Acute) Anemia, iron deficiency (Acute) Hypothyroidism (Acute) Retinal embolus (Acute) Tobacco abuse (Acute) Surgical History S/P tricuspid valve repair (Resolved 01/19/18) S/P aortic valve replacement (Chronic) History of carpal tunnel surgery (Resolved) History of gastric bypass (Resolved) History of knee surgery (Resolved) Family History Father CAD (coronary artery disease) Mother CAD (coronary artery disease) Thyroid disorder Sister Thyroid cancer Social History Smoking Status: Current some day smoker how long ago did patient quit smokin04/23/2017 alcohol intake: current alcohol intake frequency: a few times a month Alcohol type: hard liquor substance use type: does not use caffeine: Yes Type: coffee what type of physical activity do you participate in: none seatbelt use: always do you feel safe at home: Yes ROS Const Const: Positive for fatigue (anemic); negative for weakness, weight gain, weight loss, frequent falls or excessive sweating Eyes Eyes: Negative for change in vision, blurry vision or transient loss of vision ENT ENT: Negative for dizziness or balance problems Cardio Chest Pain: No Palpitations: No Edema: None Muscle aches with walking: None Resp Respiratory: Negative for SOB with activity or SOB at rest GI GI: Negative vomiting or vomiting blood/hematemesis : Negative for hematuria Musc Musc: Negative for balance problems, muscle aches/ myalgia, muscle weakness or joint pain Skin Skin: Negative non-healing lesions or rash Neuro Neuro: Negative for weakness, blurry vision, dizziness, lightheadedness, frequent falls or orthostatic symptoms Marquis Hematologic/Lymphatic: Negative for easy bleeding Endo Endo: Positive for fatigue (anemic); negative for excessive sweating Psych Psych: Negative for anxiety or depression Allergy Allergy/Immunology: Negative for hives, Negative for rash Cardiology Exam Const Appearance: cooperative, healthy appearing, comfortable, no acute distress and well groomed Nutritional Appearance: average body habitus Orientation: alert, awake and oriented x3 Head Head: normal to inspection, normocephalic and atraumatic Ears: hearing grossly normal bilaterally Nose: external nose normal Mouth: oral mucosae normal Teeth and gingiva: fair dentition Eyes Eyelids: eyelids normal Conjunctivae: conjunctivae normal Pupils: PERRL EOM: EOM intact bilaterally Neck Neck: no JVD and normal visual inspection Carotids: normal carotid upstroke and bruit Left Chest Chest inspection: normal inspection of the chest, normal respiratory effort, symmetric chest movement, midline sternotomy incision and Pacemaker/ICD (LUQ PPM) Auscultation: Bilateral: Clear to Auscultation Cardio Palpation: normal PMI Rate: regular rate Rhythm: regular rhythm Heart sounds: S1 normal and S2 normal; negative rub or gallop Murmur: soft, mid systolic, apex, Grade 1/6 and LLSB GI GI: normal to inspection, soft and bowel sounds diminished Neuro General: alert, awake and oriented x3 Skin Skin: no rashes or lesions noted and other Both surgical incision and pacemaker incision are well-healed. No drainage is noted. Surrounding skin of both incisions is pink and cool to touch. Extremities Pulses: Normal: Right Posterior Tibial Pulse, Left Posterior Tibial Pulse, Right Radial Pulse, Left Radial Pulse Lower Extremity Edema: Trace: Bilateral Psych Psychological: normal affect Assessment AND Plan 1. 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 He has had a redo aortic valve replacement. He appears to be doing well at this time. He will continue to be followed. Orders Orders: 2. S/P aortic valve replacement Z95.[address] [employer] pericardial valve 05/07/17; aortic valve with root debridement and replacement with 26mm aortic homograft 01/19/18 @ [facility] Plan Again his aortic valve has been replaced as noted above. He will continue AHA antibiotic prophylaxis and outpatient cardiovascular follow-up Orders Referrals: 3. S/P tricuspid valve repair Z98.890 Plan He is also now had tricuspid valve repair. He will continue to be followed by history exam and echocardiogram Orders Orders: Referrals: 4. Presence of permanent cardiac pacemaker Z95.0 [employer] 05/13/17 @ [facility]; 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 pacemaker implanted 01/19/18 @ [facility] Plan His permanent pacemaker was removed based on his infectious endocarditis. It has been reimplanted in the left upper quadrant area. He has pacemaker leads as noted above. He will continue with outpatient pacemaker interrogation and follow- up as deemed appropriate Orders Orders: Referrals: 5. Atherosclerosis of [place] coronary artery of [place] heart without angina pectoris I25.10 Plan He does have a history of underlying CAD but did not require revascularization therapy. He will continue risk factor evaluation medical management Orders Orders: 6. Hyperlipidemia, unspecified hyperlipidemia type E78.5 Plan He will continue risk factor evaluation and care Plan Detail Other Orders Orders: Additional Comments He will be enrolled in outpatient cardiac rehabilitation. He will continue to follow with his director nicu. He was asked to monique with his director nicu at his concerns of ongoing anemia and the need for other medical management and/or referral back to hematology oncology for additional evaluation and care Thank you for allowing me to participate in the care of your patient. Please don't hesitate to call if any issues arise. This note was generated using a voice recognition system and there may be incorrect words, spelling or punctuation that were not noted when reviewing the office note prior to saving. 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 transplanted heart: [place] heart Hyperlipidemia, unspecified hyperlipidemia type E78.5 Hyperlipidemia type: unspecified 03/15/18 1420 <Electronically signed by Joie Whitaker MD> Date Joie Whitaker MD Cosigner Signature: Date (if applicable) CC: Shantal Palmer DO; Surjit Rizvi MD; Gracy Cuellar DO 12 LEAD EKG PERFORMED Observed: 03/15/2018 Status: F [place] [facility] [place] [facility] REPOSITORY [facility] [address] [place] [address] 12 Lead EKG performed by [facility] [place] 03/15/18 1114 MR#: [id number] Acct: [id number] Name: FRANK RIVERA Rep #: [id number] : 1955 62 From: Joie Whitaker MD Attending Dr: Joie Whitaker MD Status: DEP AMB Ordering Dr: Joie Whitaker MD Date: 03/15/18 Location: [facility] [place] Sex: M C Ad[place]: [facility] [place]12 Lead EKG performed by [facility] [place] ECG Report Interpretation Electronic ventricular pacemaker Pacemaker ECG, No further analysis Electronically signed on 03/15/2018 at 14:52 by Joie Whitaker Software Version [id number] 03/15/18 1454 Date Joie Whitaker MD CC: Gracy Cuellar DO Date Dictated: 03/15/18 1114 Date Transcribed: 03/15/184 Loss Prevention Operations Manager: PM Signed BRIEF OP NOT Observed: 03/11/2018 Status: COMPLETED Source: [place] 9:31 AM [facility] REPOSITORY HNO ID: [id number] Author: Huseyin Ruby Service: Radiology Author Type: Physician Type: Brief Op Note Filed: 03/11/2018 9:44 AM Note Text: Successful removal of right IJ tunneled central venous catheter with local anesthesia. EBL < 1 cc. No immediate complications. IR CVC TUNNEL W/O Observed: 03/11/2018 Status: F Source: [place] PORT REMOVE 9:25 AM [facility] REPOSITORY * * *Final Report* * * DATE OF EXAM: Mar 11 2018 9:25AM [facility] 7670 - IR CVC TUNNEL W/O PORT REMOVE / PROCEDURE REASON: ENDOCARDITIS/COMPLETION OF TREATMENT * * * * Physician Interpretation * * * * PROCEDURE: Tunneled central venous catheter removal DATE: 03/11/2018 INDICATION: Completion of antibiotic therapy ENCOUNTER: Initial COMPARISON: Images from tunneled central venous catheter placement performed on 01/18/2018 TECHNIQUE: Patient was brought to the angiography nurses suite and placed in supine position on the cart. The site of the indwelling tunneled right internal jugular central venous catheter was prepped and draped in usual sterile fashion. 2% lidocaine was injected for local anesthesia. The catheter was freed from the subcutaneous tissues, utilizing blunt dissection and the catheter was removed in its entirety. Manual pressure was applied until hemostasis. Sterile dressings were applied. No immediate complication was noted. FINDINGS: Successful removal of right internal jugular tunneled central venous catheter, as described above. IMPRESSION: Successful removal of tunneled central venous catheter, as described above. Loss Prevention Operations Manager: PSCB Transcribe Date/Time: Mar 11 2018 3:18P Dictated by : HUSEYIN RUBY MD This examination was interpreted and the report reviewed and electronically signed by: HUSEYIN RUBY MD on Mar 11 2018 3:21PM EST [id number] PT ED Observed: 03/11/2018 Status: COMPLETED Source: [place] 8:36 AM [facility] REPOSITORY HNO ID: [id number] Author: Joy MarieRn) DIEUDONNE Isidro Service: Radiology Author Type: Registered Nurse Type: Patient Education Filed: 03/11/2018 8:37 AM Note Text: AMBULATORY PATIENT EDUCATION TOPIC: Survival Skills: SURVIVAL SKILLS: line removal READINESS TO LEARN COGNITIVE ABILITY: Alert and oriented MOTIVATION TO LEARN: Eager FAMILY SUPPORT: None - Unavailable/disinterested INSTRUCTION PROVIDED TO: Patient PATIENT LEARNS BEST BY: Individual Instruction Written Instruction - Hand-outs FACTORS AFFECTING LEARNING: None PHYSICAL LIMITATIONS AFFECTING LEARNING: None LEARNING RESPONSE DIAGNOSIS: s/p infection METHOD OF INSTRUCTION: Individual instruction Written instruction - handouts PATIENT / FAMILY RESPONSE: Verbalizes understanding of: POST-PROCEDURE INSTRUCTIONS-Correct actions to take to reduce post procedure complications PRE-PROCEDURE INSTRUCTIONS-Correct action to take to follow pre-procedure instructions FOLLOW-UP PLAN: Complete - No need for follow-up Follow-up with Primary Care SUPPLEMENTAL MATERIAL: None REFERRAL (RECOMMENDATION): None Electronically Signed By: Joy Isidro RN In Department: [facility] RADIOLOGYSEE PATIENT EDUCATION SECTION OF THE EMR HOSP Observed: 03/08/2018 Status: COMPLETED Source: [place] 12:00 AM [facility] REPOSITORY Patient Update (INFDMN) FRANK RIVERA ([id number]) 1955 M CHT Date Time Provider Department 03/08/18 ROHIT OLIVAS [facility] During your visit today, we recorded the following information about you: Carleen Joshi 03/08/2018 10:[address]Fraser mellissa rivas. Maintain sylvia until removed on 03/11 in IR. Notified [facility] at [phone]. Spoke with Mikala. Carleen Joshi Allergies As of Date: 03/08/2018 Noted Allergy Reaction PENICILLIN 12/24/2017 4 - Hives Date Reviewed: 03/05/2018 Reviewed by: Mayra Akers Ma - Fully Assessed Reason for Visit: Tracy Stop [[id number]] Prescriptions as of 03/08/2018 Sig: ACETAMINOPHEN 325 MG TABLET Take 1-2 tablets by mouth nyasia* ASPIRIN 81 MG CHEWABLE TABLET Take 2 tablets by mouth once * ATORVASTATIN 80 MG TABLET Take 80 mg by mouth once charleen* CALCIUM ACETATE 667 MG (169 M* Take by mouth. CARVEDILOL 25 MG TABLET Take 1 tablet by mouth twice * CHOLECALCIFEROL (VITAMIN D3) * Take 1 tablet by mouth once d* CYANOCOBALAMIN (VIT B-12) 100* Take 500 mcg by mouth once da* DOXYCYCLINE MONOHYDRATE 100 M* Take 1 tablet by mouth twice * LEVOTHYROXINE 200 MCG TABLET Take 200 mcg by mouth daily b* PANTOPRAZOLE 20 MG TABLET,DEL* Take 1 tablet by mouth once d* THIAMINE HCL (VITAMIN B1) 100* Take 1 tablet by mouth once d* Problem List As Of Date 03/08/2018 Noted Resolved IRINA (acute kidney injury) (HCC) [N17.9] INVALID FOR* More... Malnutrition of moderate degree (HCC) [E44.0] INVALID FOR*01/23/2018 More... Hyperkalemia [E87.5] INVALID FOR*01/13/2018 More... Rectus sheath hematoma [S30.1XXA] INVALID FOR*01/23/2018 More... Anemia [D64.9] INVALID FOR*01/23/2018 More... Pancytopenia (HCC) [D61.818] INVALID FOR*01/23/2018 More... Lymphadenopathy [R59.1] INVALID FOR*01/22/2018 More... Atrial fibrillation (HCC) [I48.91] INVALID FOR* More... CVA, old, dysphagia [I69.391] INVALID FOR*01/23/2018 More... CAD (coronary artery disease) [I25.10] INVALID FOR*01/22/2018 More... HTN (hypertension) [I10] INVALID FOR* More... Heyd's syndrome (HCC) [K76.7] INVALID FOR*01/22/2018 More... Obesity, Class I, BMI 30-34.9 [E66.9] INVALID FOR*01/22/2018 Preop testing [Z01.818] INVALID FOR*01/22/2018 More... Subacute bacterial endocarditis [I33.0] INVALID FOR* More... Intravenous catheter in place [Z97.8] INVALID FOR*01/21/2018 More... Stress hyperglycemia [R73.9] INVALID FOR*01/23/2018 More... Pain, postoperative, acute [G89.18] INVALID FOR* More... Acute blood loss anemia [D62] INVALID FOR*01/22/2018 More... Transition of care performed with sharing of cl*INVALID FOR* More... Discharge planning issues [Z02.9] INVALID FOR* More... Hemothorax [J94.2] INVALID FOR* More... Visit Notes: >> Carleen Benoit Sec Mon Mar 08, 2018 10:39 AM Status: Signed Per Dr.Fraser malloy copat. Maintain sylvia until removed on 03/11 in IR. Notified [facility] at [phone]. Spoke with Mikala. Carleen Spannjohnathan Joshi Encounter Status:Closed by CARLEEN DESOUZA on 03/08/18 PROGRESS Observed: 03/05/2018 Status: COMPLETED Source: [place] 3:20 PM [facility] REPOSITORY O ID: [id number] Author: Rohit Olivas Service: (none) Author Type: Physician Type: Progress Notes Filed: 03/05/2018 3:30 PM Note Text: Frank Rivera is a 62 year old male with a history of Endocarditis From my last inpatient note 02/04- ASSESSMENT: 62-year-old with multiple medical problems including but not limited to atrial fibrillation, hypertension, and aortic stenosis status post aortic valve replacement in April 2017 with a permanent pacemaker placed shortly thereafter was transferred to our hospital on 12/24 for further evaluation of an acute kidney injury. He initially presented to an outside hospital on 12/19 for further evaluation of a new anemia and renal failure after presenting to his primary care physician with fatigue and shortness of breath. He was treated empirically with prednisone for a glomerular nephritis and transferred. ? 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 Positive serologies for antineutrophil cytoplasmic antibodies and myeloperoxidase. He is requiring renal replacement therapy. ? Notable aspects of his workup thus far from infectious disease perspective has included: 2 blood cultures 12/25-no growth to date Bartonella serologies-IgG for Bartonella henselae greater than 1:1024, IgG for Bartonella amato 1:1024 Transesophageal echocardiogram 01/01-2-3+ TR, 3+ AI, thickening of the aorto-mitral curtain and posterior LA wall suggestive of either hematoma or active infection, small mobile echodensity within the RA-vegetation versus thrombus CT chest cardiac 01/07-moderate diffuse leaflet calcification CT brain 01/07-no acute findings CT abdomen and pelvis 01/06-evolving large rectus sheath hematoma CT abdomen pelvis 01/17-rectus hematoma was stable craniocaudad dimensions but slight difference in axial configuration ? 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 Interestingly, despite his titers he has no obvious epidemiological link to this genus. In speaking with him and in reviewing his records there was no suspicion for endocarditis of the time of his operation in April. He continues to require renal replacement therapy. ? The patient was taken to the operating room on 01/19 and underwent SURGERY/PROCEDURE: ?Reoperation second open-heart surgery. ?Aortic valve with root ?debridement and replacement with 26-mm aortic homograft. ?Tricuspid valve repair ?according to Gretta. ?Removal of pacemaker and permanent leads and placement of new ?epicardial leads on RV, LV, and right atrium and implantation of a new pacemaker. . Operative findings: Vegetations on all 3 leaflets, partially dehisced valve, several penetrations into the annulus posteriorly under the left non-commissure and under the right non-commissure Operative cultures: No growth to date Histopathology: Specimen aortic valve-acute inflammation and focal calcification, cocci seen on GMS PCR: Bartonella species ? His postoperative course was notable for the development of a right hemothorax which required return to the operating room on 01/28 for VATS and hematoma evacuation. ? He is making gradual progress postoperatively. He is tolerating his antibiotics. He continues to require renal replacement therapy. ? RECOMMENDATIONS: Continue doxycycline 100 mg po every 12 hours Continue ceftriaxone 2 g IV every 24 hours ? At this time expect his discharge regimen to be- Ceftriaxone 2 g IV every 24 hours Doxycycline 100 mg by mouth every 12 hours Treat until 03/02/18. COPAT rx electronically signed and available in the outpatient encounter section of [facility], updated February 04, 2018. I can see him back in 02/24 at 13:00. INTERVAL EVENTS: Returns for follow-up today. He has done reasonably well since I saw him last. He has been able to increase his activity level. He has a good appetite. He continues to require thrice weekly dialysis. He is urinating more. He has tolerated his antibiotics without difficulty. His Sylvia catheter has continued to work without significant difficulty. He is scheduled to have it removed next week at [facility]. He denies any fever, chills, sweats, or other constitutional symptoms. CURRENT MEDICATIONS: Current Outpatient Prescriptions: acetaminophen (TYLENOL) 325 mg tablet Take 1-2 tablets by mouth every 4 hours as needed for Pain (for mild to moderate pain). aspirin 81 mg chewable tablet Take 2 tablets by mouth once daily. atorvastatin (LIPITOR) 80 mg tablet Take 80 mg by mouth once daily. calcium acetate 667 mg (169 mg calcium)/5 mL soln Take by mouth. cholecalciferol 3,000 unit tab Take 1 tablet by mouth once daily. cyanocobalamin (VITAMIN B-12) 100 mcg tab Take 500 mcg by mouth once daily. doxycycline monohydrate 100 mg tablet Take 1 tablet by mouth twice daily for 3 days. levothyroxine (LEVOXYL) 200 mcg tablet Take 200 mcg by mouth daily before breakfast. pantoprazole DR (PROTONIX) 20 mg tablet Take 1 tablet by mouth once daily. thiamine (VITAMIN B1) 100 mg tablet Take 1 tablet by mouth once daily. carvedilol (COREG) 6.25 mg tablet Take 6.25 mg by mouth twice daily with meals. No current facility-administered medications for this visit. REVIEW OF SYSTEMS: In addition to those reviewed and documented in the HPI all other systems reviewed and were negative. PHYSICAL EXAM: BP 169/109 Pulse 91 Temp 36.5 ?C (97.7 ?F) (Temporal Artery) Resp 20 Wt 94.3 kg (208 lb) SpO2 98% BMI 25.32 kg/m? Looks well, mother with him Skin: No rash Lungs: CTA CV: Rate and rhythm normal, S1 and S2 Abdomen: Soft Extremity: No significant lower extremity edema Sternotomy intact Old device site in the left upper chest intact Left upper quadrant pacemaker site intact Vascular Catheter Site: clean Venous Changes: None Comment: Personally reviewed imaging studies, laboratory results, and microbiology results. [id number] with multiple medical problems including but not limited to atrial fibrillation, hypertension, and aortic stenosis was admitted to our hospital on 12/24/17 for further evaluation of an acute kidney injury. He had undergone aortic valve replacement in April 2017. He was transferred from outside hospital. He was admitted there for anemia and new renal failure. He was diagnosed with a glomerulonephritis. He was transferred. His kidney biopsy was reviewed here and was found to be consistent with infection related glomerulonephritis. Focal crescentric GN with IgM/C3 deposits were seen. He required renal replacement therapy. His biopsy findings prompted an infectious disease workup which identified positive serologies for Bartonella of a magnitude consistent with endocarditis. PCR of whole blood demonstrated Bartonella as well. He underwent extensive cardiac evaluation which included a transesophageal echocardiogram that demonstrated 3+ tricuspid regurgitation, 3+ aortic insufficiency, thickening of the aortic mitral curtain and posterior LN wall suggestive of active infection, and a small mobile echodensity within the RA. He was diagnosed with Bartonella prosthetic valve endocarditis. He was taken to the operating room on 01/19 and underwent aortic valve with root debridement and replacement with a homograft. Tricuspid valve repair was done. His pacemaker was removed and a new epicardial system was placed. Vegetations were seen on all 3 aortic valve leaflets with a partially dehisced valve. Cultures were without growth. Histopathology was consistent with endocarditis. PCR of valve tissue demonstrated Bartonella species. His postoperative course was notable for the development of right hemothorax which required a VATS for hematoma evacuation on 01/28/18. He gradually improved and was discharged on a regimen of ceftriaxone 2 g IV every 24 hours and doxycycline 100 mg by mouth every 12 hours. On evaluation today he is doing quite well overall. PLAN: Stop ceftriaxone Continue doxycycline 100 mg by mouth every 12 hours for another 6 weeks-Rx sent to his local pharmacy Remove Sylvia catheter as planned next week Follow-up with me in 2 months, sooner as needed. MD KEV DuboisOV Observed: 03/05/2018 Status: COMPLETED Source: [place]AN[place] 3:00 PM [facility] REPOSITORY Office Visit ([id number]) FRANK RIVERA ([id number]) 1955 M [facility] Date Time Provider Department 03/05/18 3:00 PM WILVER [id number] During your visit today, we recorded the following information about you: Pulse Respiration Blood pressure Weight 68/minute 16/minute 168/94 93.9 kg Height 1.867 m Wilver Berry MD 03/10/2018 9:50 AM Signed [facility] [place] [facility] Department of Cardiovascular Medicine SECTION OF CARDIOVASCULAR IMAGING OUTPATIENT VISIT DATE March 05, 2018 OUTPATIENT VISIT TYPE ESTABLISHED PRIMARY CARE PHYSICIAN: Gracy Cuellar DO [address] [facility] [place] [address] CHIEF COMPLAINT: Follow up HISTORY OF PRESENT ILLNESS: Mr. Rivera is a 62 year old male who presents today for follow-up visit . Complex h/o valve disease including: Atrial fibrillation s/p PPM and DCCV in 04/2017 on apixaban 5mg BID on metoprolol 12.5mg BID, HTN ,Hypothyroidism Aortic Stenosis treated by bioprosthetic AVR (27mm St. Richi Trifecta pericardial valve) and RUDY ligation 05/07/17 [place] [id number] Hx of Min-En-Y bypass in 1995 Hx of Upper GI?bleeds (1997, 2014, 2015) B12 deficiency, IRINA:renal biopsy concerning for C3 nephropathy. TDC in IR 01/18. Last dialysis 01/18 IE: CHANDRAKANT 01/01 showed AV vegitation. 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 AV block 1 and permanent pacemaker.?? SURGERY/PROCEDURE: Reoperation second open-heart surgery. Aortic valve with root debridement and replacement with 26-mm aortic homograft. Tricuspid valve repair according to Gretta. Removal of pacemaker and permanent leads and placement of new epicardial leads on RV, LV, and right atrium and implantation of a new pacemaker. ? DATE OF SURGERY/PROCEDURE: 01/28/2018 SURGERY/PROCEDURE: Right VATS total decortication with evacuation of clot. D/C summary 12/24-02/04 2018 -S/p reimplantation PPM. Formal device check done 01/25 and 01/28-Underlying SR in s -Endocarditis.Bartonella positive. ID following. On Rocephin QD/Doxycycline. RCW SYLVIA catheter intact. COPAT done. -Hx of Afib. On eliquis preop. Pacer check showed no AT/AF. -Mod right pleural effusion per CXR on 01/22-wastapped on the right with 850cc out. Chest CT per Dr. Alarcon. CT showed right moderate hemothorax. 01/28 VATS washout done per thoracic team-1 Liter of old blood and clots removed-drains removed per Thoracic. Thoracic signed off. Stable on RA. CXR stable. -IRINA-IHD MWF. RCW permacath intact. IHD done today. Plan [facility] Thursday[facility] Nephro continue to follow -Anemia- Improving. No signs/symptoms of active bleeding. On Aranesp. Received 1 unit PRBC 01/28 and01/30. Today H/H 9.2/29.6 -Hypotension-Carvedilol on hold. Started on Midodrine 01/30 d/t SBP in 80's. Dose decreased 02/01. Frequency changed to BID today. Continue to wean as tolerated. 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 - Tubular atrophy and interstitial fibrosis, mild. ? Since his last visit, he states that heis still undergoing dialysis thru R sided port. Urine output is increasing. . PAST CARDIAC HISTORY: He has been seen in the past for see above. PAST MEDICAL HISTORY Diagnosis Date - Aortic stenosis - Atrial fibrillation (HCC) - CAD (coronary artery disease) of bypass graft - CVA, old, dysphagia - Heyd's syndrome (HCC) - History of Min-en-Y gastric bypass - HTN (hypertension) - Hx of sick sinus syndrome PAST SURGICAL HISTORY Procedure Laterality Date - CARPAL TUNNEL - DIALYSIS CATHETER PROCEDURE (W NOTE) 12/27/2017 - GASTRIC BYPASS, MIN-EN-Y 1996 - PERCUT AORTIC VALVE REPLACE 05/07/2017 SOCIAL HISTORY Social History Substance Use Topics - Smoking status: Current Every Day Smoker Types: Cigars, Cigarettes - Smokeless tobacco: Never Used Comment: States he quit cigarretes years ago 25 yr ppd previously, last had cigar in october - Alcohol use No FAMILY HISTORY Problem Relation Age of Onset - Ischemic Heart Disease Mother - other (hypothyroidism) Mother - Ischemic Heart Disease Father - Thyroid Cancer Sister ALLERGIES: ALLERGIES Allergen Reactions - Penicillin Hives MEDICATIONS: acetaminophen (TYLENOL) 325 mg tablet Take 1-2 tablets by mouth every 4 hours as needed for Pain (for mild to moderate pain). aspirin 81 mg chewable tablet Take 2 tablets by mouth once daily. atorvastatin (LIPITOR) 80 mg tablet Take 80 mg by mouth once daily. calcium acetate 667 mg (169 mg calcium)/5 mL soln Take by mouth. carvedilol (COREG) 6.25 mg tablet Take 6.25 mg by mouth twice daily with meals. cholecalciferol 3,000 unit tab Take 1 tablet by mouth once daily. cyanocobalamin (VITAMIN B-12) 100 mcg tab Take 500 mcg by mouth once daily. doxycycline monohydrate 100 mg tablet Take 1 tablet by mouth twice daily for 3 days. levothyroxine (LEVOXYL) 200 mcg tablet Take 200 mcg by mouth daily before breakfast. pantoprazole DR (PROTONIX) 20 mg tablet Take 1 tablet by mouth once daily. thiamine (VITAMIN B1) 100 mg tablet Take 1 tablet by mouth once daily. REVIEW OF SYSTEMS: See HPI. PHYSICAL EXAMINATION: BP 168/94 (BP Site: Left Arm, BP Position: Sitting, BP Cuff Size: Regular Adult) Pulse 68 Resp 16 Ht 186.7 cm (6' 1.5) Wt 93.9 kg (207 lb) SpO2 96% BMI 26.94 kg/m? General: Well appearing, in no acute distress. R sided port Skin: No clubbing, no cyanosis. Eyes: Extra ocular movements intact Oropharynx: Teeth in good repair. Neck: No jugular venous distention, no carotid bruits, carotids have a normal upstroke, no palpable thyromegaly. Lungs: Clear to auscultation bilaterally, no wheezing or rhonchi. Heart: Regular rhythm, PMI not displaced, S1, S2 normal, no S3, no S4, no heaves, no rub and no murmur. Abdomen: Soft, nontender, bowel sounds normal, no palpable organomegaly, no bruits. Extremities: No peripheral edema . Grade 2/4 distal pulses bilaterally. Neuro: Oriented to person, place and time, alert, cooperative, gait coordinated. CARDIOVASCULAR MEDICINE TESTING: Laboratory Testing: today Results for FRANK RIVERA ( ) as of 03/05/2018 15:07 Ref. Range 03/05/2018 11:58 Hematocrit Latest Ref Range: 39.0 - 51.0 % 25.4 (L) WBC Latest Ref Range: 3.70 - 11.00 k/uL 5.02 RBC Latest Ref Range: 4.20 - 6.00 m/uL 2.49 (L) Hemoglobin Latest Ref Range: 13.0 - 17.0 g/dL 8.0 (L) Platelet Count Latest Ref Range: 150 - 400 k/uL 157 MCV Latest Ref Range: 80.0 - 100.0 fL 102.0 (H) MCH Latest Ref Range: 26.0 - 34.0 pG 32.1 MCHC Latest Ref Range: 30.5 - 36.0 g/dL 31.5 MPV Latest Ref Range: 9.0 - 12.7 fL 9.9 RDW-CV Latest Ref Range: 11.5 - 15.0 % 19.2 (H) Absolute nRBC Latest Ref Range: <0.01 k/uL <0.01 Results for FRANK RIVERA ( ) as of 03/05/2018 15:07 Ref. Range 02/04/2018 05:13 Sodium Latest Ref Range: 136 - 144 mmol/L 137 Potassium Latest Ref Range: 3.7 - 5.1 mmol/L 4.3 Chloride Latest Ref Range: 97 - 105 mmol/L 104 CO2 Latest Ref Range: 22 - 30 mmol/L 25 BUN Latest Ref Range: 9 - 24 mg/dL 14 Creatinine Latest Ref Range: 0.73 - 1.22 mg/dL 3.67 (H) Glucose Latest Ref Range: 74 - 99 mg/dL 74 Protein, Total Latest Ref Range: 6.3 - 8.0 g/dL 6.8 Calcium Latest Ref Range: 8.5 - 10.2 mg/dL 8.2 (L) Albumin Latest Ref Range: 3.9 - 4.9 g/dL 2.2 (L) Bilirubin, Total Latest Ref Range: 0.2 - 1.3 mg/dL 0.4 Alkaline Phosphatase Latest Ref Range: 38 - 113 U/L 115 (H) ALT Latest Ref Range: 10 - 54 U/L 8 (L) AST Latest Ref Range: 14 - 40 U/L 21 Anion Gap Latest Ref Range: 9 - 18 mmol/L 8 (L) eGFR- Unknown 21 eGFR-All Other Races Latest Units: . 17 Hematocrit Latest Ref Range: 39.0 - 51.0 % 29.6 (L) WBC Latest Ref Range: 3.70 - 11.00 k/uL 3.71 RBC Latest Ref Range: 4.20 - 6.00 m/uL 3.01 (L) Hemoglobin Latest Ref Range: 13.0 - 17.0 g/dL 9.2 (L) Platelet Count Latest Ref Range: 150 - 400 k/uL 101 (L) MCV Latest Ref Range: 80.0 - 100.0 fL 98.3 MCH Latest Ref Range: 26.0 - 34.0 pG 30.6 MCHC Latest Ref Range: 30.5 - 36.0 g/dL 31.1 MPV Latest Ref Range: 9.0 - 12.7 fL 8.7 (L) RDW-CV Latest Ref Range: 11.5 - 15.0 % 18.9 (H) Absolute nRBC Latest Ref Range: <0.01 k/uL <0.01 TTE today: - The left ventricle is normal in size. There is severe concentric left ventricular hypertrophy. Left ventricular systolic function is mildly decreased. EF = 45 ? 5% (visual est.) - The right ventricle is normal in size. Right ventricular systolic function is mildly decreased. - The left atrial cavity is severely dilated. - Mild to moderate (1-2+) MR. - Post tricuspid valve repair. Gretta Stitch. There is mild (1+) tricuspid valve regurgitation. The peak gradient is 3 mmHg and the mean gradient is 1 mmHg. - Cryolife prosthetic aortic valve (size #23). There is trivial aortic valve regurgitation. There is no aortic valve stenosis. The peak gradient is 10 mmHg, the mean gradient is 5 mmHg and the dimensionless valve index is 0.73. - Estimated right ventricular systolic pressure is 38 mmHg consistent with mild pulmonary hypertension. Estimated right atrial pressure is 5 mmHg. - Exam was compared with the prior echocardiographic exam performed on 01/19/2018, Patient is now S/p TV repair, Redo AVR. Mild reduction in biventricular function. I have personally reviewed the Laboratory Testing and Echocardiogram. Assessment IMPRESSION: Mr. Rivera is a 62 year old male w/ complex medical and surgical history, as above PLAN AND RECOMMENDATIONS: Increase Carvedilol to 25 mg two times a day. Apical WMA likely d/t pacing. Recommend cardiac rehab.-will be done locally. Patient apparently does not need cardiac rehab prescription from me. Would like to see patient in May, -patient to call for appointment. CONTACT INFORMATION: Shaun Giordano Department of Cardiovascular Medicine [facility] [place] [facility] Desk [id number] [place] [address] Office ? [phone] extension [phone] Office Appointments: [phone] extension [phone] Referring Provider: ELMER ALARCON [[id number]] Allergies As of Date: 03/05/2018 Noted Allergy Reaction PENICILLIN 12/24/2017 4 - Hives Date Reviewed: 03/05/2018 Reviewed by: Mayra Akers Ma - Fully Assessed Primary Visit Diagnosis:Chronic systolic heart failure (HCC) [I50.22] Other Visit Diagnoses:IRINA (acute kidney injury) (HCC) [N17.9] S/P AVR [Z95.2] Order(s):carvedilol (COREG) 25 mg tabletTake 1 tablet by mouth twice daily.Disp: 180 tabletRfl: 3 Prescriptions as of 03/05/2018 Sig: ACETAMINOPHEN 325 MG TABLET Take 1-2 tablets by mouth nyasia* ASPIRIN 81 MG CHEWABLE TABLET Take 2 tablets by mouth once * ATORVASTATIN 80 MG TABLET Take 80 mg by mouth once charleen* CALCIUM ACETATE 667 MG (169 M* Take by mouth. CHOLECALCIFEROL (VITAMIN D3) * Take 1 tablet by mouth once d* CYANOCOBALAMIN (VIT B-12) 100* Take 500 mcg by mouth once da* LEVOTHYROXINE 200 MCG TABLET Take 200 mcg by mouth daily b* PANTOPRAZOLE 20 MG TABLET,DEL* Take 1 tablet by mouth once d* THIAMINE HCL (VITAMIN B1) 100* Take 1 tablet by mouth once d* X DOXYCYCLINE MONOHYDRATE 100 M* Take 1 tablet by mouth twice * CARVEDILOL 25 MG TABLET Take 1 tablet by mouth twice * Problem List As Of Date 03/05/2018 Noted Resolved IRINA (acute kidney injury) (HCC) [N17.9] INVALID FOR* More... Malnutrition of moderate degree (HCC) [E44.0] INVALID FOR*01/23/2018 More... Hyperkalemia [E87.5] INVALID FOR*01/13/2018 More... Rectus sheath hematoma [S30.1XXA] INVALID FOR*01/23/2018 More... Anemia [D64.9] INVALID FOR*01/23/2018 More... Pancytopenia (HCC) [D61.818] INVALID FOR*01/23/2018 More... Lymphadenopathy [R59.1] INVALID FOR*01/22/2018 More... Atrial fibrillation (HCC) [I48.91] INVALID FOR* More... CVA, old, dysphagia [I69.391] INVALID FOR*01/23/2018 More... CAD (coronary artery disease) [I25.10] INVALID FOR*01/22/2018 More... HTN (hypertension) [I10] INVALID FOR* More... Heyd's syndrome (HCC) [K76.7] INVALID FOR*01/22/2018 More... Obesity, Class I, BMI 30-34.9 [E66.9] INVALID FOR*01/22/2018 Preop testing [Z01.818] INVALID FOR*01/22/2018 More... Subacute bacterial endocarditis [I33.0] INVALID FOR* More... Intravenous catheter in place [Z97.8] INVALID FOR*01/21/2018 More... Stress hyperglycemia [R73.9] INVALID FOR*01/23/2018 More... Pain, postoperative, acute [G89.18] INVALID FOR* More... Acute blood loss anemia [D62] INVALID FOR*01/22/2018 More... Transition of care performed with sharing of cl*INVALID FOR* More... Discharge planning issues [Z02.9] INVALID FOR* More... Hemothorax [J94.2] INVALID FOR* More... Prescriptions ordered this encounter Disp Refills Start End CARVEDILOL 25 MG TABLET 180 * 3 03/05/2018 Route: ORAL Sig: Take 1 tablet by mouth twice daily. Medications Discontinued During This Encounter carvedilol (COREG) 3.125 mg tablet 180 * 0 02/04/2018 03/05/2018 Route: ORAL Sig: Take 1 tablet by mouth twice daily with meals. Disc: Dosage adjustment cefTRIAXone (ROCEPHIN) 2 g in D5W 10* 02/05/2018 03/05/2018 Class: Med Update Route: INTRAVENOUS Sig: Inject 100 mL intravenously every 24 hours. Disc: Course of therapy completed carvedilol (COREG) 6.25 mg tablet 03/05/2018 Class: Historical Med Route: ORAL Sig: Take 6.25 mg by mouth twice daily with meals. Disc: Dosage adjustment Follow-up and Disposition History Recorded Encounter Status:Closed by WILVER BERRY MD on 03/10/18 PROGRESS Observed: 03/05/2018 Status: COMPLETED Source: PLANO 2:59 PM [facility] REPOS[facility] O ID: [id number] Author: Wilver Berry Service: (none) Author Type: Physician Type: Progress Notes Filed: 03/10/2018 9:50 AM Note Text: [facility] [place] Ren[facility] Aguilar Department of Cardiovascular Medicine SECTION OF CARDIOVASCULAR IMAGING OUTPATIENT VISIT DATE March 05, 2018 OUTPATIENT VISIT TYPE ESTABLISHED PRIMARY CARE PHYSICIAN: Gracy Cuellar DO [address] [facility] [place] [address] CHIEF COMPLAINT: Follow up HISTORY OF PRESENT ILLNESS: Mr. Rivera is a 62 year old male who presents today for follow-up visit . Complex h/o valve disease including: Atrial fibrillation s/p PPM and DCCV in 04/2017 on apixaban 5mg BID on metoprolol 12.5mg BID, HTN ,Hypothyroidism Aortic Stenosis treated by bioprosthetic AVR (27mm St. Richi Trifecta pericardial valve) and RUDY ligation 05/07/17 [place] [id number] Hx of Min-En-Y bypass in 1995 Hx of Upper GI?bleeds (1997, 2014, 2015) B12 deficiency, IRINA:renal biopsy concerning for C3 nephropathy. TDC in IR 01/18. Last dialysis 01/18 IE: CHANDRAKANT 01/01 showed AV vegitation. 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 AV block 1 and permanent pacemaker.?? SURGERY/PROCEDURE: Reoperation second open-heart surgery. Aortic valve with root debridement and replacement with 26-mm aortic homograft. Tricuspid valve repair according to Gretta. Removal of pacemaker and permanent leads and placement of new epicardial leads on RV, LV, and right atrium and implantation of a new pacemaker. ? DATE OF SURGERY/PROCEDURE: 01/28/2018 SURGERY/PROCEDURE: Right VATS total decortication with evacuation of clot. D/C summary 12/24-02/04 2018 -S/p reimplantation PPM. Formal device check done 01/25 and 01/28-Underlying SR in 30's -Endocarditis.Bartonella positive. ID following. On Rocephin QD/Doxycycline. RCW SYLVIA catheter intact. COPAT done. -Hx of Afib. On eliquis preop. Pacer check showed no AT/AF. -Mod right pleural effusion per CXR on 01/22-wastapped on the right with 850cc out. Chest CT per Dr. Alarcon. CT showed right moderate hemothorax. 01/28 VATS washout done per thoracic team-1 Liter of old blood and clots removed-drains removed per Thoracic. Thoracic signed off. Stable on RA. CXR stable. -IRINA-IHD MWF. RCW permacath intact. IHD done today. Plan for IHD Thursday. set up for Thursday session in [facility]. Nephro continue to follow -Anemia- Improving. No signs/symptoms of active bleeding. On Aranesp. Received 1 unit PRBC 01/28 and01/30. Today H/H 9.2/29.6 -Hypotension-Carvedilol on hold. Started on Midodrine 01/30 d/t SBP in 80's. Dose decreased 02/01. Frequency changed to BID today. Continue to wean as tolerated. 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 - Tubular atrophy and interstitial fibrosis, mild. ? Since his last visit, he states that heis still undergoing dialysis thru R sided port. Urine output is increasing. . PAST CARDIAC HISTORY: He has been seen in the past for see above. PAST MEDICAL HISTORY Diagnosis Date - Aortic stenosis - Atrial fibrillation (HCC) - CAD (coronary artery disease) of bypass graft - CVA, old, dysphagia - Heyd's syndrome (HCC) - History of Min-en-Y gastric bypass - HTN (hypertension) - Hx of sick sinus syndrome PAST SURGICAL HISTORY Procedure Laterality Date - CARPAL TUNNEL - DIALYSIS CATHETER PROCEDURE (W NOTE) 12/27/2017 - GASTRIC BYPASS, MIN-EN-Y 1996 - PERCUT AORTIC VALVE REPLACE 05/07/2017 SOCIAL HISTORY Social History Substance Use Topics - Smoking status: Current Every Day Smoker Types: Cigars, Cigarettes - Smokeless tobacco: Never Used Comment: States he quit cigarretes years ago 25 yr ppd previously, last had cigar in october - Alcohol use No FAMILY HISTORY Problem Relation Age of Onset - Ischemic Heart Disease Mother - other (hypothyroidism) Mother - Ischemic Heart Disease Father - Thyroid Cancer Sister ALLERGIES: ALLERGIES Allergen Reactions - Penicillin Hives MEDICATIONS: acetaminophen (TYLENOL) 325 mg tablet Take 1-2 tablets by mouth every 4 hours as needed for Pain (for mild to moderate pain). aspirin 81 mg chewable tablet Take 2 tablets by mouth once daily. atorvastatin (LIPITOR) 80 mg tablet Take 80 mg by mouth once daily. calcium acetate 667 mg (169 mg calcium)/5 mL soln Take by mouth. carvedilol (COREG) 6.25 mg tablet Take 6.25 mg by mouth twice daily with meals. cholecalciferol 3,000 unit tab Take 1 tablet by mouth once daily. cyanocobalamin (VITAMIN B-12) 100 mcg tab Take 500 mcg by mouth once daily. doxycycline monohydrate 100 mg tablet Take 1 tablet by mouth twice daily for 3 days. levothyroxine (LEVOXYL) 200 mcg tablet Take 200 mcg by mouth daily before breakfast. pantoprazole DR (PROTONIX) 20 mg tablet Take 1 tablet by mouth once daily. thiamine (VITAMIN B1) 100 mg tablet Take 1 tablet by mouth once daily. REVIEW OF SYSTEMS: See HPI. PHYSICAL EXAMINATION: BP 168/94 (BP Site: Left Arm, BP Position: Sitting, BP Cuff Size: Regular Adult) Pulse 68 Resp 16 Ht 186.7 cm (6' 1.5) Wt 93.9 kg (207 lb) SpO2 96% BMI 26.94 kg/m? General: Well appearing, in no acute distress. R sided port Skin: No clubbing, no cyanosis. Eyes: Extra ocular movements intact Oropharynx: Teeth in good repair. Neck: No jugular venous distention, no carotid bruits, carotids have a normal upstroke, no palpable thyromegaly. Lungs: Clear to auscultation bilaterally, no wheezing or rhonchi. Heart: Regular rhythm, PMI not displaced, S1, S2 normal, no S3, no S4, no heaves, no rub and no murmur. Abdomen: Soft, nontender, bowel sounds normal, no palpable organomegaly, no bruits. Extremities: No peripheral edema . Grade 2/4 distal pulses bilaterally. Neuro: Oriented to person, place and time, alert, cooperative, gait coordinated. CARDIOVASCULAR MEDICINE TESTING: Laboratory Testing: today Results for FRANK RIVERA ( ) as of 03/05/2018 15:07 Ref. Range 03/05/2018 11:58 Hematocrit Latest Ref Range: 39.0 - 51.0 % 25.4 (L) WBC Latest Ref Range: 3.70 - 11.00 k/uL 5.02 RBC Latest Ref Range: 4.20 - 6.00 m/uL 2.49 (L) Hemoglobin Latest Ref Range: 13.0 - 17.0 g/dL 8.0 (L) Platelet Count Latest Ref Range: 150 - 400 k/uL 157 MCV Latest Ref Range: 80.0 - 100.0 fL 102.0 (H) MCH Latest Ref Range: 26.0 - 34.0 pG 32.1 MCHC Latest Ref Range: 30.5 - 36.0 g/dL 31.5 MPV Latest Ref Range: 9.0 - 12.7 fL 9.9 RDW-CV Latest Ref Range: 11.5 - 15.0 % 19.2 (H) Absolute nRBC Latest Ref Range: <0.01 k/uL <0.01 Results for FRANK RIVERA ( ) as of 03/05/2018 15:07 Ref. Range 02/04/2018 05:13 Sodium Latest Ref Range: 136 - 144 mmol/L 137 Potassium Latest Ref Range: 3.7 - 5.1 mmol/L 4.3 Chloride Latest Ref Range: 97 - 105 mmol/L 104 CO2 Latest Ref Range: 22 - 30 mmol/L 25 BUN Latest Ref Range: 9 - 24 mg/dL 14 Creatinine Latest Ref Range: 0.73 - 1.22 mg/dL 3.67 (H) Glucose Latest Ref Range: 74 - 99 mg/dL 74 Protein, Total Latest Ref Range: 6.3 - 8.0 g/dL 6.8 Calcium Latest Ref Range: 8.5 - 10.2 mg/dL 8.2 (L) Albumin Latest Ref Range: 3.9 - 4.9 g/dL 2.2 (L) Bilirubin, Total Latest Ref Range: 0.2 - 1.3 mg/dL 0.4 Alkaline Phosphatase Latest Ref Range: 38 - 113 U/L 115 (H) ALT Latest Ref Range: 10 - 54 U/L 8 (L) AST Latest Ref Range: 14 - 40 U/L 21 Anion Gap Latest Ref Range: 9 - 18 mmol/L 8 (L) eGFR- Unknown 21 eGFR-All Other Races Latest Units: . 17 Hematocrit Latest Ref Range: 39.0 - 51.0 % 29.6 (L) WBC Latest Ref Range: 3.70 - 11.00 k/uL 3.71 RBC Latest Ref Range: 4.20 - 6.00 m/uL 3.01 (L) Hemoglobin Latest Ref Range: 13.0 - 17.0 g/dL 9.2 (L) Platelet Count Latest Ref Range: 150 - 400 k/uL 101 (L) MCV Latest Ref Range: 80.0 - 100.0 fL 98.3 MCH Latest Ref Range: 26.0 - 34.0 pG 30.6 MCHC Latest Ref Range: 30.5 - 36.0 g/dL 31.1 MPV Latest Ref Range: 9.0 - 12.7 fL 8.7 (L) RDW-CV Latest Ref Range: 11.5 - 15.0 % 18.9 (H) Absolute nRBC Latest Ref Range: <0.01 k/uL <0.01 TTE today: - The left ventricle is normal in size. There is severe concentric left ventricular hypertrophy. Left ventricular systolic function is mildly decreased. EF = 45 ? 5% (visual est.) - The right ventricle is normal in size. Right ventricular systolic function is mildly decreased. - The left atrial cavity is severely dilated. - Mild to moderate (1-2+) MR. - Post tricuspid valve repair. Gretta Stitch. There is mild (1+) tricuspid valve regurgitation. The peak gradient is 3 mmHg and the mean gradient is 1 mmHg. - Cryolife prosthetic aortic valve (size #23). There is trivial aortic valve regurgitation. There is no aortic valve stenosis. The peak gradient is 10 mmHg, the mean gradient is 5 mmHg and the dimensionless valve index is 0.73. - Estimated right ventricular systolic pressure is 38 mmHg consistent with mild pulmonary hypertension. Estimated right atrial pressure is 5 mmHg. - Exam was compared with the prior echocardiographic exam performed on 01/19/2018, Patient is now S/p TV repair, Redo AVR. Mild reduction in biventricular function. I have personally reviewed the Laboratory Testing and Echocardiogram. Assessment IMPRESSION: Mr. Rivera is a 62 year old male w/ complex medical and surgical history, as above PLAN AND RECOMMENDATIONS: Increase Carvedilol to 25 mg two times a day. Apical WMA likely d/t pacing. Recommend cardiac rehab.-will be done locally. Patient apparently does not need cardiac rehab prescription from me. Would like to see patient in May, -patient to call for appointment. CONTACT INFORMATION: Shaun Giordano Department of Cardiovascular Medicine [facility] [place] [facility] Desk [address] [place] [address] Office ? [phone] extension [phone] Office Appointments: [phone] -[phone] extension [phone] CBC Collected: 03/05/2018 Status: F Source: PLANO 11:58 AM [facility] REPOSITORY TYPE CODE TESTS RESULT OUT OF REFERENCE UNITS RANGE LAB WBC 3.70-11.00 k/uL WBC 5.02 LAB RBC 4.20-6.00 m/uL Low RBC 2.49 LAB HGB 13.0-17.0 g/dL Low Hemoglobin 8.0 LAB HCT 39.0-51.0 % Low Hematocrit 25.4 LAB MCV 80.0-100.0 fL MCV High 102.0 LAB MCH 26.0-34.0 pG MCH 32.1 LAB MCHC 30.5-36.0 g/dL MCHC 31.5 LAB RDWCV 11.5-15.0 % RDW-CV High 19.2 LAB PLTCT 150-400 k/uL Platelet Count 157 LAB MPV 9.0-12.7 fL MPV 9.9 LAB ABSNUC <0.01 k/uL Absolute nRBC <0.01 Performed By: #### CBC, BMP, LIPB, HBA1C #### [facility] [place] [address] BASIC METABOLIC PANL Collected: 03/05/2018 Status: F Source: PLANO 11:58 AM [facility] REPOSITORY TYPE CODE TESTS RESULT OUT OF REFERENCE UNITS RANGE LAB GLU 74-99 mg/dL Glucose 84 Result Comment: The [place] Diabetes Association (ADA) provides guidance for cutoff values for fasting glucose and random glucose. The ADA defines fasting as no caloric intake for at least 8 hours. Fas ting plasma glucose results between 100 to 125 mg/dL indicate increased risk for diabetes (prediabetes). Fasting plasma glucose results greater than or equal to 126 mg/dL meet the criteria for diagnosis of diabetes. In the absence of unequivocal hyperglycemia, results should be confirmed by repeat testing. In a patient with classic symptoms of hyperglycemia or hyperglycemic crisis, random plasma glucose results greater than or equal to 200 mg/dL meet the criteria for diagnosis of diabetes. Reference: Standards of Medical Care in Diabetes 2016, [place] Diabetes Association. Diabetes Care. 2016.39(Suppl 1). LAB BUN 9-24 mg/dL BUN High 37 LAB CRET 0.73-1.22 mg/dL Creatinine High 2.92 LAB NA 136-144 mmol/L Sodium 140 LAB K 3.7-5.1 mmol/L Potassium 4.3 LAB CL 97-105 mmol/L Chloride 97 LAB CO2 22-30 mmol/L CO2 30 LAB AGAP 9-18 mmol/L Anion Gap 13 LAB CA 8.5-10.2 mg/dL Calcium, Total 8.9 LAB GFRAA eGFR- Amer. 27 LAB GFRNAA . eGFR-All Other Races 22 Result Comment: eGFR (Estimated GFR) Units of measure: mL/min/1.73 meters squared eGFR is derived from the reexpressed MDRD Study equation using the following parameters: serum creatinine, age, gender and race. The creatinine assay has been calibrated to be traceable to IDMS. An eGFR <60 mL/min/1.73m2 for >3 months is consistent with chronic kidney disease. Refer to KDOQI guidelines for clinical interpretation. In patients with unstable renal function, e.g. those with acute kidney injury, the eGFR may not accurately reflect actual GFR. Performed By: #### CBC, BMP, LIPB, HBA1C #### [facility] [address] [place], [place] [address] LIPID PANEL, BASIC Collected: 03/05/2018 Status: F Source: PLANO 11:58 AM [facility] REPOSITORY TYPE CODE TESTS RESULT OUT OF REFERENCE UNITS RANGE LAB CHOL <200 mg/dL Cholesterol 93 Result Comment: <200 mg/dL, Desirable 200-239 mg/dL, Borderline high >239 mg/dL, High LAB TRIGLY <150 mg/dL Triglyceride 88 Result Comment: <150 mg/dL, Normal 150-199 mg/dL, Borderline high 200-499 mg/dL, High >499 mg/dL, Very high LAB HDL >39 mg/dL HDL-Cholesterol 45 Result Comment: 40-59 mg/dL, Acceptable >59 mg/dL, High: Negative risk factor for coronary heart disease <40 mg/dL, Low: Positive risk factor for coronary heart disease LAB LDL <100 mg/dL LDL-Cholesterol 30 Result Comment: <100 mg/dL, Optimal 100-129 mg/dL, Near optimal/above optimal 130-159 mg/dL, Borderline high 160-189 mg/dL, High >189 mg/dL, Very high Secondary prevention optimal LDL Cholesterol levels are recommended to be < 70 mg/dL LAB NONHDL <130 mg/dL Non HDL Cholesterol 48 Result Comment: <130 mg/dL, Optimal 130-159 mg/dL, Near optimal/above optimal 160-189 mg/dL, Borderline high 190-219 mg/dL, High >219 mg/dL, Very high Secondary prevention optimal non HDL Cholesterol levels are recommended to be < 100 mg/dL LAB FT hrs Fasting Time 10 LAB VLDL <30 mg/dL VLDL Cholesterol 18 LAB TCHDL <5.10 TC:HDL Ratio 2.07 LAB LDLHDL <2.54 LDL:HDL Ratio 0.67 Result Comment: Reference: 1. National Cholesterol Education Program ATP III Guideline At-A-Glance Quick Desk Reference: National Heart, Lung, and Blood [place]. National Institutes of Health. 2001: NIH Publication No. 01-3305. 2. An International Atherosclerosis Society position paper: global recommendations for the management of dyslipidemia: executive summary, Atherosclerosis. 2014: 232(2):410-413. Performed By: #### CBC, BMP, LIPB, HBA1C #### [facility] [address] [place], [place] [address] HEMOGLOBIN A1C Collected: 03/05/2018 Status: F Source: PLANO 11:58 AM [facility] REPOSITORY TYPE CODE TESTS RESULT OUT OF REFERENCE UNITS RANGE LAB HGBA1C 4.3-5.6 % Hemoglobin A1c 4.6 Result Comment: [place] Diabetes Association guidelines indicate that patients with HgbA1c in the range 5.7-6.4% are at increased risk for development of diabetes, and intervention by lifestyle modification may be beneficial. HgbA1c greater or equal to 6.5% is considered diagnostic of diabetes. LAB HBA0 mg/dL Est. Average Glucose 85 Result Comment: eAG: (Estimated average glucose) is a calculated value from HgbA1c and is client representative of the average blood glucose level in the last 2-3 month period. Performed By: #### CBC, BMP, LIPB, HBA1C #### [facility] [address] [place], [place] [address] ECG COMPLETE W Observed: 03/05/2018 Status: F Source: PLANO INTERPRETATION 11:43 AM [facility] REPOSITORY NAME : FRANK RIVERA PID : [id number] : 1955 Gender : Male Race : ORD : [id number] Procedure Date : Mar 05 2018 11:43:03 Edit Date : Mar 11 2018 17:43:01 Diagnosis:AV DUAL-PACED RHYTHM ABNORMAL ECG Confirmed by DILLON ALBA MD ([id number]) on 03/11/2018 5:42:57 PM Ventricular Rate : 99 BPM Atrial Rate : 99 BPM P-R Interval : 156 ms QRS Duration : 180 ms Q-T Interval : 434 ms QTC Calculation(Bezet) : 556 ms R Killbuck : 268 degrees T Killbuck : 89 degrees Test Reason : Location : 314 : J14 Overread By : DILLON ALBA MD Edited By : DILLON ALBA MD Referred By : WILVER BERRY Acquired by : CRICKET PHILLIPS CNOV Observed: 03/05/2018 Status: COMPLETED Source: PLANO 10:45 AM [facility] REPOSITORY Office Visit (INFDMN) FRANK RIVERA ([id number]) 1955 M [facility] Date Time Provider Department 03/05/18 10:45 AM [facility] During your visit today, we recorded the following information about you: Temperature Pulse Respiration Blood pressure 97.7 degrees 91/minute 20/minute 169/109 Weight 94.3 kg Rohit Olivas MD 03/05/2018 3:30 PM Signed Frank Rivera is a 62 year old male with a history of Endocarditis From my last inpatient note 02/04- ASSESSMENT: 62-year-old with multiple medical problems including but not limited to atrial fibrillation, hypertension, and aortic stenosis status post aortic valve replacement in April 2017 with a permanent pacemaker placed shortly thereafter was transferred to our hospital on 12/24 for further evaluation of an acute kidney injury. He initially presented to an outside hospital on 12/19 for further evaluation of a new anemia and renal failure after presenting to his primary care physician with fatigue and shortness of breath. He was treated empirically with prednisone for a glomerular nephritis and transferred. ? 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 Positive serologies for antineutrophil cytoplasmic antibodies and myeloperoxidase. He is requiring renal replacement therapy. ? Notable aspects of his workup thus far from infectious disease perspective has included: 2 blood cultures 12/25-no growth to date Bartonella serologies-IgG for Bartonella henselae greater than 1:1024, IgG for Bartonella amato 1:1024 Transesophageal echocardiogram 01/01-2-3+ TR, 3+ AI, thickening of the aorto-mitral curtain and posterior LA wall suggestive of either hematoma or active infection, small mobile echodensity within the RA-vegetation versus thrombus CT chest cardiac 01/07-moderate diffuse leaflet calcification CT brain 01/07-no acute findings CT abdomen and pelvis 01/06-evolving large rectus sheath hematoma CT abdomen pelvis 01/17-rectus hematoma was stable craniocaudad dimensions but slight difference in axial configuration ? 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 Interestingly, despite his titers he has no obvious epidemiological link to this genus. In speaking with him and in reviewing his records there was no suspicion for endocarditis of the time of his operation in April. He continues to require renal replacement therapy. ? The patient was taken to the operating room on 01/19 and underwent SURGERY/PROCEDURE: ?Reoperation second open-heart surgery. ?Aortic valve with root ?debridement and replacement with 26-mm aortic homograft. ?Tricuspid valve repair ?according to Gretta. ?Removal of pacemaker and permanent leads and placement of new ?epicardial leads on RV, LV, and right atrium and implantation of a new pacemaker. . Operative findings: Vegetations on all 3 leaflets, partially dehisced valve, several penetrations into the annulus posteriorly under the left non-commissure and under the right non-commissure Operative cultures: No growth to date Histopathology: Specimen aortic valve-acute inflammation and focal calcification, cocci seen on GMS PCR: Bartonella species ? His postoperative course was notable for the development of a right hemothorax which required return to the operating room on 01/28 for VATS and hematoma evacuation. ? He is making gradual progress postoperatively. He is tolerating his antibiotics. He continues to require renal replacement therapy. ? RECOMMENDATIONS: Continue doxycycline 100 mg po every 12 hours Continue ceftriaxone 2 g IV every 24 hours ? At this time expect his discharge regimen to be- Ceftriaxone 2 g IV every 24 hours Doxycycline 100 mg by mouth every 12 hours Treat until 03/02/18. COPAT rx electronically signed and available in the outpatient encounter section of [facility] [facility], updated February 04, 2018. I can see him back in 02/24 at 13:00. INTERVAL EVENTS: Returns for follow-up today. He has done reasonably well since I saw him last. He has been able to increase his activity level. He has a good appetite. He continues to require thrice weekly dialysis. He is urinating more. He has tolerated his antibiotics without difficulty. His Sylvia catheter has continued to work without significant difficulty. He is scheduled to have it removed next week at [facility]. He denies any fever, chills, sweats, or other constitutional symptoms. CURRENT MEDICATIONS: Current Outpatient Prescriptions: acetaminophen (TYLENOL) 325 mg tablet Take 1-2 tablets by mouth every 4 hours as needed for Pain (for mild to moderate pain). aspirin 81 mg chewable tablet Take 2 tablets by mouth once daily. atorvastatin (LIPITOR) 80 mg tablet Take 80 mg by mouth once daily. calcium acetate 667 mg (169 mg calcium)/5 mL soln Take by mouth. cholecalciferol 3,000 unit tab Take 1 tablet by mouth once daily. cyanocobalamin (VITAMIN B-12) 100 mcg tab Take 500 mcg by mouth once daily. doxycycline monohydrate 100 mg tablet Take 1 tablet by mouth twice daily for 3 days. levothyroxine (LEVOXYL) 200 mcg tablet Take 200 mcg by mouth daily before breakfast. pantoprazole DR (PROTONIX) 20 mg tablet Take 1 tablet by mouth once daily. thiamine (VITAMIN B1) 100 mg tablet Take 1 tablet by mouth once daily. carvedilol (COREG) 6.25 mg tablet Take 6.25 mg by mouth twice daily with meals. No current facility-administered medications for this visit. REVIEW OF SYSTEMS: In addition to those reviewed and documented in the HPI all other systems reviewed and were negative. PHYSICAL EXAM: BP 169/109 Pulse 91 Temp 36.5 ?C (97.7 ?F) (Temporal Artery) Resp 20 Wt 94.3 kg (208 lb) SpO2 98% BMI 25.32 kg/m? Looks well, mother with him Skin: No rash Lungs: CTA CV: Rate and rhythm normal, S1 and S2 Abdomen: Soft Extremity: No significant lower extremity edema Sternotomy intact Old device site in the left upper chest intact Left upper quadrant pacemaker site intact Vascular Catheter Site: clean Venous Changes: None Comment: Personally reviewed imaging studies, laboratory results, and microbiology results. [id number] with multiple medical problems including but not limited to atrial fibrillation, hypertension, and aortic stenosis was admitted to our hospital on 12/24/17 for further evaluation of an acute kidney injury. He had undergone aortic valve replacement in April 2017. He was transferred from outside hospital. He was admitted there for anemia and new renal failure. He was diagnosed with a glomerulonephritis. He was transferred. His kidney biopsy was reviewed here and was found to be consistent with infection related glomerulonephritis. Focal crescentric GN with IgM/C3 deposits were seen. He required renal replacement therapy. His biopsy findings prompted an infectious disease workup which identified positive serologies for Bartonella of a magnitude consistent with endocarditis. PCR of whole blood demonstrated Bartonella as well. He underwent extensive cardiac evaluation which included a transesophageal echocardiogram that demonstrated 3+ tricuspid regurgitation, 3+ aortic insufficiency, thickening of the aortic mitral curtain and posterior LN wall suggestive of active infection, and a small mobile echodensity within the RA. He was diagnosed with Bartonella prosthetic valve endocarditis. He was taken to the operating room on 01/19 and underwent aortic valve with root debridement and replacement with a homograft. Tricuspid valve repair was done. His pacemaker was removed and a new epicardial system was placed. Vegetations were seen on all 3 aortic valve leaflets with a partially dehisced valve. Cultures were without growth. Histopathology was consistent with endocarditis. PCR of valve tissue demonstrated Bartonella species. His postoperative course was notable for the development of right hemothorax which required a VATS for hematoma evacuation on 01/28/18. He gradually improved and was discharged on a regimen of ceftriaxone 2 g IV every 24 hours and doxycycline 100 mg by mouth every 12 hours. On evaluation today he is doing quite well overall. PLAN: Stop ceftriaxone Continue doxycycline 100 mg by mouth every 12 hours for another 6 weeks-Rx sent to his local pharmacy Remove Sylvia catheter as planned next week Follow-up with me in 2 months, sooner as needed. Rohit Olivas MD Referring Provider: SELF [[id number]] Allergies As of Date: 03/05/2018 Noted Allergy Reaction PENICILLIN 12/24/2017 4 - Hives Date Reviewed: 03/05/2018 Reviewed by: Mayra Akers Ma - Fully Assessed Reason for Visit: Hospital Follow Up [177] Primary Visit Diagnosis:Subacute bacterial endocarditis [I33.0] Other Visit Diagnosis:Bartonella infection [A44.9] Order(s):doxycycline monohydrate 100 mg tabletTake 1 tablet by mouth twice daily.Disp: 84 tabletRfl: 0 Prescriptions as of 03/05/2018 Sig: ACETAMINOPHEN 325 MG TABLET Take 1-2 tablets by mouth nyasia* ASPIRIN 81 MG CHEWABLE TABLET Take 2 tablets by mouth once * ATORVASTATIN 80 MG TABLET Take 80 mg by mouth once charleen* CALCIUM ACETATE 667 MG (169 M* Take by mouth. CHOLECALCIFEROL (VITAMIN D3) * Take 1 tablet by mouth once d* CYANOCOBALAMIN (VIT B-12) 100* Take 500 mcg by mouth once da* DOXYCYCLINE MONOHYDRATE 100 M* Take 1 tablet by mouth twice * LEVOTHYROXINE 200 MCG TABLET Take 200 mcg by mouth daily b* PANTOPRAZOLE 20 MG TABLET,DEL* Take 1 tablet by mouth once d* THIAMINE HCL (VITAMIN B1) 100* Take 1 tablet by mouth once d* X CARVEDILOL 3.125 MG TABLET Take 1 tablet by mouth twice * X CEFTRIAXONE IVPB 2 G IN D5W 1* Inject 100 mL intravenously e* Medication notes this encounter PANTOPRAZOLE 20 MG TABLET,DELAYED RELEASE >> Tyler Celeste Ma 03/05/2018 10:32 AM >> TYLER CELESTE MA ThuMar 05, 2018 10:32 AM 40mg CARVEDILOL 3.125 MG TABLET >> Tyler Celeste Ma 03/05/2018 10:32 AM >> TYLER CELESTE MA ThuMar 05, 2018 10:32 AM 6.25mg Problem List As Of Date 03/05/2018 Noted Resolved IRINA (acute kidney injury) (HCC) [N17.9] INVALID FOR* More... Malnutrition of moderate degree (HCC) [E44.0] INVALID FOR*01/23/2018 More... Hyperkalemia [E87.5] INVALID FOR*01/13/2018 More... Rectus sheath hematoma [S30.1XXA] INVALID FOR*01/23/2018 More... Anemia [D64.9] INVALID FOR*01/23/2018 More... Pancytopenia (HCC) [D61.818] INVALID FOR*01/23/2018 More... Lymphadenopathy [R59.1] INVALID FOR*01/22/2018 More... Atrial fibrillation (HCC) [I48.91] INVALID FOR* More... CVA, old, dysphagia [I69.391] INVALID FOR*01/23/2018 More... CAD (coronary artery disease) [I25.10] INVALID FOR*01/22/2018 More... HTN (hypertension) [I10] INVALID FOR* More... Heyd's syndrome (HCC) [K76.7] INVALID FOR*01/22/2018 More... Obesity, Class I, BMI 30-34.9 [E66.9] INVALID FOR*01/22/2018 Preop testing [Z01.818] INVALID FOR*01/22/2018 More... Subacute bacterial endocarditis [I33.0] INVALID FOR* More... Intravenous catheter in place [Z97.8] INVALID FOR*01/21/2018 More... Stress hyperglycemia [R73.9] INVALID FOR*01/23/2018 More... Pain, postoperative, acute [G89.18] INVALID FOR* More... Acute blood loss anemia [D62] INVALID FOR*01/22/2018 More... Transition of care performed with sharing of cl*INVALID FOR* More... Discharge planning issues [Z02.9] INVALID FOR* More... Hemothorax [J94.2] INVALID FOR* More... Prescriptions ordered this encounter Disp Refills Start End DOXYCYCLINE MONOHYDRATE 100 MG TABLET 84 t* 0 03/05/2018 04/16/2018 Route: ORAL Sig: Take 1 tablet by mouth twice daily. Medications Discontinued During This Encounter Darbepoetin Tereza In Polysorbat (FEROZ* 02/04/2018 03/05/2018 Class: Med Update Route: SUBCUTANEOUS Sig: Inject 0.3 mL subcutaneously once each week. Disc: Reason for discontinue is not on file. doxycycline monohydrate 100 mg tablet 6 ta* 0 03/02/2018 03/05/2018 Route: ORAL Sig: Take 1 tablet by mouth twice daily for 3 days. Disc: Reason for discontinue is not on file. Cosign accepted by ROHIT OLIVAS MD[[id number]] on 03/01/2018 12:30 PM Encounter Status:Closed by ROHIT OLIVAS MD on 03/05/18 SERUM CREATININE AND Collected: 03/01/2018 Status: F Source: [place] GFR 11:15 AM [facility] REPOSITORY Order Comment: LAB [id number] TYPE CODE TESTS RESULT OUT OF RANGE REFERENCE UNITS LAB L501.1100 0.70-1.30 mg/dL High 3.45 CREAT,SERUM Result Comment: The validity of the calculated GFR AND GFRAA in patients over 70 years has not been determined. Clinical correlation is essential. LAB L501.1110 >60 mL/min Low EST GFR 19 Result Comment: Non- GFR Calc LAB L501.1115 >60 mL/min Low EST GFR - AA 23 Result Comment: GFR Calc Performed By: #### L501.1105 #### [facility], [address] CBC W/DIFF, AUTOMATED Collected: 03/01/2018 Status: F Source: LUX 11:15 AM [facility] REPOSITORY Order Comment: LAB [id number] TYPE CODE TESTS RESULT OUT OF RANGE REFERENCE UNITS LAB L100.1000 4.4-11.0 K/mm3 Low WBC 4.0 LAB L100.1200 4.6-6.2 M/mm3 Low RBC 2.53 LAB L100.1300 13.0-16.5 g/dl Low HGB 7.9 LAB L100.1400 40-54 % Low HCT 25.3 LAB L100.1500 80-94 fL High MCV 100.0 LAB L100.1600 27.0-32.0 pg Normal MCH 31.2 LAB L100.1700 32-36 g/gl Low MCHC 31.2 LAB L100.1810 11.6-14.6 % High RDW CV 19.6 LAB L100.1820 35.1-43.9 fl High RDW SD 71.4 LAB L100.1900 150-450 K/mm3 Low PLT 129 LAB L100.2000 6.2-12.0 fl Normal MPV 9.0 LAB L100.2100 47-70 % Normal NEUT% 50.7 LAB L100.2200 19-41 % Normal LY% 33.3 LAB L100.2300 0-10 % Normal MONO% 7.0 LAB L100.2400 0-5 % High EO% 8.0 LAB L100.2500 0-1 % Normal BASO% 1.0 LAB L100.2550 0.0-0.9 % Normal IM GRAN % 0.000 Result Comment: IG% - Immature Granulocytes (promyelocytes, myelocytes and metamyelocytes) > 1% indicates that a LEFT SHIFT is Present. LAB L100.2620 2.0-7.7 X10 3/uL Normal Absolute Neut 2.0 LAB L100.2720 0.83-4.51 X10 3/ul Normal Absolute Lymph 1.33 LAB L100.4500 Normal SMEAR COMMENT COMMENT Result Comment: SLIDE SCANNED - 1+ ANISO. Performed By: #### L100.0100 #### [facility] [place], [address] HOSP Observed: 03/01/2018 Status: COMPLETED Source: PLANO 12:00 AM [facility] REPOSITORY Patient Update (INFDMN) FRANK RIVERA ([id number]) 1955 M [facility] Date Time Provider Department 03/01/18 ROHIT OLIVAS During your visit today, we recorded the following information about you: Jung Leal RN, RN 03/01/2018 11:[address] Olivas, Extend Copat and oral doxycycline until 03/05 Order given to [place] at [facility] Pt's mother notified. He will need 3 more days of doxycycline called into his local pharmacy Pharmacy verified and prescription escripted Jung Leal RN Allergies As of Date: 03/01/2018 Noted Allergy Reaction PENICILLIN 12/24/2017 4 - Hives Date Reviewed: 02/04/2018 Reviewed by: Petra MarieRn) DIEUDONNE Chau - Fully Assessed Reason for Visit: Extend CoPat [168] Cmt: 03/05 Order(s):[START ON 03/02/2018] doxycycline monohydrate 100 mg tabletTake 1 tablet by mouth twice daily for 3 days.Disp: 6 tabletRfl: 0 Prescriptions as of 03/01/2018 Sig: DOXYCYCLINE MONOHYDRATE 100 M* Take 1 tablet by mouth twice * ACETAMINOPHEN 325 MG TABLET Take 1-2 tablets by mouth nyasia* ASPIRIN 81 MG CHEWABLE TABLET Take 2 tablets by mouth once * CARVEDILOL 3.125 MG TABLET Take 1 tablet by mouth twice * CEFTRIAXONE IVPB 2 G IN D5W 1* Inject 100 mL intravenously e* CHOLECALCIFEROL (VITAMIN D3) * Take 1 tablet by mouth once d* DARBEPOETIN TEREZA 60 MCG/0.3 M* Inject 0.3 mL subcutaneously * DOXYCYCLINE HYCLATE 100 MG CA* Take 1 capsule by mouth every* THIAMINE HCL (VITAMIN B1) 100* Take 1 tablet by mouth once d* PANTOPRAZOLE 20 MG TABLET,DEL* Take 1 tablet by mouth once d* ATORVASTATIN 80 MG TABLET Take 80 mg by mouth once charleen* LEVOTHYROXINE 200 MCG TABLET Take 200 mcg by mouth daily b* CYANOCOBALAMIN (VIT B-12) 100* Take 500 mcg by mouth once da* Problem List As Of Date 03/01/2018 Noted Resolved IRINA (acute kidney injury) (HCC) [N17.9] INVALID FOR* More... Malnutrition of moderate degree (HCC) [E44.0] INVALID FOR*01/23/2018 More... Hyperkalemia [E87.5] INVALID FOR*01/13/2018 More... Rectus sheath hematoma [S30.1XXA] INVALID FOR*01/23/2018 More... Anemia [D64.9] INVALID FOR*01/23/2018 More... Pancytopenia (HCC) [D61.818] INVALID FOR*01/23/2018 More... Lymphadenopathy [R59.1] INVALID FOR*01/22/2018 More... Atrial fibrillation (HCC) [I48.91] INVALID FOR* More... CVA, old, dysphagia [I69.391] INVALID FOR*01/23/2018 More... CAD (coronary artery disease) [I25.10] INVALID FOR*01/22/2018 More... HTN (hypertension) [I10] INVALID FOR* More... Heyd's syndrome (HCC) [K76.7] INVALID FOR*01/22/2018 More... Obesity, Class I, BMI 30-34.9 [E66.9] INVALID FOR*01/22/2018 Preop testing [Z01.818] INVALID FOR*01/22/2018 More... Subacute bacterial endocarditis [I33.0] INVALID FOR* More... Intravenous catheter in place [Z97.8] INVALID FOR*01/21/2018 More... Stress hyperglycemia [R73.9] INVALID FOR*01/23/2018 More... Pain, postoperative, acute [G89.18] INVALID FOR* More... Acute blood loss anemia [D62] INVALID FOR*01/22/2018 More... Transition of care performed with sharing of cl*INVALID FOR* More... Discharge planning issues [Z02.9] INVALID FOR* More... Hemothorax [J94.2] INVALID FOR* More... Visit Notes: >> Jung Perez) DIEUDONNE Leal Mon Mar 01, 2018 11:41 AM Status: Signed Per Dr Olivas, Extend Copat and oral doxycycline until 03/05 Order given to [place] at [facility] Pt's mother notified. He will need 3 more days of doxycycline called into his local pharmacy Pharmacy verified and prescription escripted Jung Leal RN Prescriptions ordered this encounter Disp Refills Start End DOXYCYCLINE MONOHYDRATE 100 MG TABLET 6 ta* 0 03/02/2018 03/05/2018 Route: ORAL Sig: Take 1 tablet by mouth twice daily for 3 days. Cosign required by ROHIT OLIVAS[[id number]] Encounter Status:Closed by JUNG LEAL on 03/01/18 HOSP Observed: 03/01/2018 Status: COMPLETED Source: [place] 12:00 AM [facility] REPOSITORY Patient Update (INFDMN) FRANK RIVERA ([id number]) 1955 M CHT Date Time Provider Department 03/01/18 [facility] During your visit today, we recorded the following information about you: Allergies As of Date: 03/01/2018 Noted Allergy Reaction PENICILLIN 12/24/2017 4 - Hives Date Reviewed: 02/04/2018 Reviewed by: Petra (Rn) DIEUDONNE Chau - Fully Assessed Reason for Visit: Outside Labs Results [437] Cmt: copat Order(s):CBC + DIFF [SQCBCDIF] Order #: [id number] COMP METABOLIC PANEL [SQCMP] Order #: [id number] Prescriptions as of 03/01/2018 Sig: ACETAMINOPHEN 325 MG TABLET Take 1-2 tablets by mouth nyasia* ASPIRIN 81 MG CHEWABLE TABLET Take 2 tablets by mouth once * ATORVASTATIN 80 MG TABLET Take 80 mg by mouth once charleen* CARVEDILOL 3.125 MG TABLET Take 1 tablet by mouth twice * CEFTRIAXONE IVPB 2 G IN D5W 1* Inject 100 mL intravenously e* CHOLECALCIFEROL (VITAMIN D3) * Take 1 tablet by mouth once d* CYANOCOBALAMIN (VIT B-12) 100* Take 500 mcg by mouth once da* DARBEPOETIN TEREZA 60 MCG/0.3 M* Inject 0.3 mL subcutaneously * DOXYCYCLINE HYCLATE 100 MG CA* Take 1 capsule by mouth every* DOXYCYCLINE MONOHYDRATE 100 M* Take 1 tablet by mouth twice * LEVOTHYROXINE 200 MCG TABLET Take 200 mcg by mouth daily b* PANTOPRAZOLE 20 MG TABLET,DEL* Take 1 tablet by mouth once d* THIAMINE HCL (VITAMIN B1) 100* Take 1 tablet by mouth once d* Problem List As Of Date 03/01/2018 Noted Resolved IRINA (acute kidney injury) (HCC) [N17.9] INVALID FOR* More... Malnutrition of moderate degree (HCC) [E44.0] INVALID FOR*01/23/2018 More... Hyperkalemia [E87.5] INVALID FOR*01/13/2018 More... Rectus sheath hematoma [S30.1XXA] INVALID FOR*01/23/2018 More... Anemia [D64.9] INVALID FOR*01/23/2018 More... Pancytopenia (HCC) [D61.818] INVALID FOR*01/23/2018 More... Lymphadenopathy [R59.1] INVALID FOR*01/22/2018 More... Atrial fibrillation (HCC) [I48.91] INVALID FOR* More... CVA, old, dysphagia [I69.391] INVALID FOR*01/23/2018 More... CAD (coronary artery disease) [I25.10] INVALID FOR*01/22/2018 More... HTN (hypertension) [I10] INVALID FOR* More... Heyd's syndrome (HCC) [K76.7] INVALID FOR*01/22/2018 More... Obesity, Class I, BMI 30-34.9 [E66.9] INVALID FOR*01/22/2018 Preop testing [Z01.818] INVALID FOR*01/22/2018 More... Subacute bacterial endocarditis [I33.0] INVALID FOR* More... Intravenous catheter in place [Z97.8] INVALID FOR*01/21/2018 More... Stress hyperglycemia [R73.9] INVALID FOR*01/23/2018 More... Pain, postoperative, acute [G89.18] INVALID FOR* More... Acute blood loss anemia [D62] INVALID FOR*01/22/2018 More... Transition of care performed with sharing of cl*INVALID FOR* More... Discharge planning issues [Z02.9] INVALID FOR* More... Hemothorax [J94.2] INVALID FOR* More... Follow-up and Disposition History Recorded Encounter Status:Closed by CARLEEN DESOUZA on 03/02/18 HOSP Observed: 02/22/2018 Status: COMPLETED Source: [place] 12:00 AM [facility] REPOSITORY Patient:Frank Rivera MRN: <[id number]> Height:6' 1.5(1.867 m) Weight:208 lb (94.348 kg) Outpatient Medications as of 03/11/18: acetaminophen (TYLENOL) 325 mg tablet aspirin 81 mg chewable tablet atorvastatin (LIPITOR) 80 mg tablet calcium acetate 667 mg (169 mg calcium)/5 mL soln carvedilol (COREG) 25 mg tablet cholecalciferol 3,000 unit tab cyanocobalamin (VITAMIN B-12) 100 mcg tab doxycycline monohydrate 100 mg tablet levothyroxine (LEVOXYL) [address] (PROTONIX) 20 mg tablet thiamine (VITAMIN B1) 100 mg tablet Admission/Clinic Administered Medications as of 03/11/18: Patient has no admission medications. Problem List: IRINA (acute kidney injury) (HCC) [N17.9] Atrial fibrillation (HCC) [I48.91] HTN (hypertension) [I10] Subacute bacterial endocarditis [I33.0] Pain, postoperative, acute [G89.18] Transition of care performed with sharing of clinical summary [Z91.89] Discharge planning issues [Z02.9] Hemothorax [J94.2] Allergies: Penicillin Date Verified: 03/11/18 Lab Values Lab Value Units Date High Low POTA* 4.3 mmol/L 03/05/2018 5.1 3.7 MARQUIS* 25.4 % 03/05/2018 51.0 39.0 Progress Notes ([facility] MAIN): Jadon Bingham 03/05/2018 4:12 PM Signed Physician: Rohit Olivas Phone number where pharmacist can be reached: [phone](Mar) Best time to call - Anytime Name of pharmacy - [facility] Reason for call: Medication Issue/Question- Mar from [facility] called in requesting a return call regarding a question she has about patient's doxycycline monohydrate prescription. Jadon Bingham Progress Notes ([facility] MAIN): Rohit Olivas MD 03/05/2018 3:30 PM Signed Frank Rivera is a 62 year old male with a history of Endocarditis From my last inpatient note 02/04- ASSESSMENT: 62-year-old with multiple medical problems including but not limited to atrial fibrillation, hypertension, and aortic stenosis status post aortic valve replacement in April 2017 with a permanent pacemaker placed shortly thereafter was transferred to our hospital on 12/24 for further evaluation of an acute kidney injury. He initially presented to an outside hospital on 12/19 for further evaluation of a new anemia and renal failure after presenting to his primary care physician with fatigue and shortness of breath. He was treated empirically with prednisone for a glomerular nephritis and transferred. ? 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 Positive serologies for antineutrophil cytoplasmic antibodies and myeloperoxidase. He is requiring renal replacement therapy. ? Notable aspects of his workup thus far from infectious disease perspective has included: 2 blood cultures 12/25-no growth to date Bartonella serologies-IgG for Bartonella henselae greater than 1:1024, IgG for Bartonella amato 1:1024 Transesophageal echocardiogram 01/01-2-3+ TR, 3+ AI, thickening of the aorto-mitral curtain and posterior LA wall suggestive of either hematoma or active infection, small mobile echodensity within the RA-vegetation versus thrombus CT chest cardiac 01/07-moderate diffuse leaflet calcification CT brain 01/07-no acute findings CT abdomen and pelvis 01/06-evolving large rectus sheath hematoma CT abdomen pelvis 01/17-rectus hematoma was stable craniocaudad dimensions but slight difference in axial configuration ? 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 Interestingly, despite his titers he has no obvious epidemiological link to this genus. In speaking with him and in reviewing his records there was no suspicion for endocarditis of the time of his operation in April. He continues to require renal replacement therapy. ? The patient was taken to the operating room on 01/19 and underwent SURGERY/PROCEDURE: ?Reoperation second open-heart surgery. ?Aortic valve with root ?debridement and replacement with 26-mm aortic homograft. ?Tricuspid valve repair ?according to Gretta. ?Removal of pacemaker and permanent leads and placement of new ?epicardial leads on RV, LV, and right atrium and implantation of a new pacemaker. . Operative findings: Vegetations on all 3 leaflets, partially dehisced valve, several penetrations into the annulus posteriorly under the left non-commissure and under the right non-commissure Operative cultures: No growth to date Histopathology: Specimen aortic valve-acute inflammation and focal calcification, cocci seen on GMS PCR: Bartonella species ? His postoperative course was notable for the development of a right hemothorax which required return to the operating room on 01/28 for VATS and hematoma evacuation. ? He is making gradual progress postoperatively. He is tolerating his antibiotics. He continues to require renal replacement therapy. ? RECOMMENDATIONS: Continue doxycycline 100 mg po every 12 hours Continue ceftriaxone 2 g IV every 24 hours ? At this time expect his discharge regimen to be- Ceftriaxone 2 g IV every 24 hours Doxycycline 100 mg by mouth every 12 hours Treat until 03/02/18. COPAT rx electronically signed and available in the outpatient encounter section of [facility], updated February 04, 2018. I can see him back in 02/24 at 13:00. INTERVAL EVENTS: Returns for follow-up today. He has done reasonably well since I saw him last. He has been able to increase his activity level. He has a good appetite. He continues to require thrice weekly dialysis. He is urinating more. He has tolerated his antibiotics without difficulty. His Sylvia catheter has continued to work without significant difficulty. He is scheduled to have it removed next week at [facility]. He denies any fever, chills, sweats, or other constitutional symptoms. CURRENT MEDICATIONS: Current Outpatient Prescriptions: acetaminophen (TYLENOL) 325 mg tablet Take 1-2 tablets by mouth every 4 hours as needed for Pain (for mild to moderate pain). aspirin 81 mg chewable tablet Take 2 tablets by mouth once daily. atorvastatin (LIPITOR) 80 mg tablet Take 80 mg by mouth once daily. calcium acetate 667 mg (169 mg calcium)/5 mL soln Take by mouth. cholecalciferol 3,000 unit tab Take 1 tablet by mouth once daily. cyanocobalamin (VITAMIN B-12) 100 mcg tab Take 500 mcg by mouth once daily. doxycycline monohydrate 100 mg tablet Take 1 tablet by mouth twice daily for 3 days. levothyroxine (LEVOXYL) 200 mcg tablet Take 200 mcg by mouth daily before breakfast. pantoprazole DR (PROTONIX) 20 mg tablet Take 1 tablet by mouth once daily. thiamine (VITAMIN B1) 100 mg tablet Take 1 tablet by mouth once daily. carvedilol (COREG) 6.25 mg tablet Take 6.25 mg by mouth twice daily with meals. No current facility-administered medications for this visit. REVIEW OF SYSTEMS: In addition to those reviewed and documented in the HPI all other systems reviewed and were negative. PHYSICAL EXAM: BP 169/109 Pulse 91 Temp 36.5 ?C (97.7 ?F) (Temporal Artery) Resp 20 Wt 94.3 kg (208 lb) SpO2 98% BMI 25.32 kg/m? Looks well, mother with him Skin: No rash Lungs: CTA CV: Rate and rhythm normal, S1 and S2 Abdomen: Soft Extremity: No significant lower extremity edema Sternotomy intact Old device site in the left upper chest intact Left upper quadrant pacemaker site intact Vascular Catheter Site: clean Venous Changes: None Comment: Personally reviewed imaging studies, laboratory results, and microbiology results. [id number] with multiple medical problems including but not limited to atrial fibrillation, hypertension, and aortic stenosis was admitted to our hospital on 12/24/17 for further evaluation of an acute kidney injury. He had undergone aortic valve replacement in April 2017. He was transferred from outside hospital. He was admitted there for anemia and new renal failure. He was diagnosed with a glomerulonephritis. He was transferred. His kidney biopsy was reviewed here and was found to be consistent with infection related glomerulonephritis. Focal crescentric GN with IgM/C3 deposits were seen. He required renal replacement therapy. His biopsy findings prompted an infectious disease workup which identified positive serologies for Bartonella of a magnitude consistent with endocarditis. PCR of whole blood demonstrated Bartonella as well. He underwent extensive cardiac evaluation which included a transesophageal echocardiogram that demonstrated 3+ tricuspid regurgitation, 3+ aortic insufficiency, thickening of the aortic mitral curtain and posterior LN wall suggestive of active infection, and a small mobile echodensity within the RA. He was diagnosed with Bartonella prosthetic valve endocarditis. He was taken to the operating room on 01/19 and underwent aortic valve with root debridement and replacement with a homograft. Tricuspid valve repair was done. His pacemaker was removed and a new epicardial system was placed. Vegetations were seen on all 3 aortic valve leaflets with a partially dehisced valve. Cultures were without growth. Histopathology was consistent with endocarditis. PCR of valve tissue demonstrated Bartonella species. His postoperative course was notable for the development of right hemothorax which required a VATS for hematoma evacuation on 01/28/18. He gradually improved and was discharged on a regimen of ceftriaxone 2 g IV every 24 hours and doxycycline 100 mg by mouth every 12 hours. On evaluation today he is doing quite well overall. PLAN: Stop ceftriaxone Continue doxycycline 100 mg by mouth every 12 hours for another 6 weeks-Rx sent to his local pharmacy Remove Sylvia catheter as planned next week Follow-up with me in 2 months, sooner as needed. Rohit Olivas MD HOSP Observed: 02/22/2018 Status: COMPLETED Source: [place] 12:00 AM [facility] REPOSITORY Patient Update (INFDMN) FR[facility] RIVER[facility] ([id number]) 1955 [facility] Date Time Provider Department 02/22/18 [facility] During your visit today, we recorded the following information about you: Allergies As of Date: 02/22/2018 Noted Allergy Reaction PENICILLIN 12/24/2017 4 - Hives Date Reviewed: 02/04/2018 Reviewed by: Petra (Rn) DIEUDONNE Chau - Fully Assessed Reason for Visit: Outside Labs Results [437] Cmt: copat Order(s):CBC + DIFF [SQCBCDIF] Order #: [id number] COMP METABOLIC PANEL [SQCMP] Order #: [id number] Prescriptions as of 02/22/2018 Sig: ACETAMINOPHEN 325 MG TABLET Take 1-2 tablets by mouth nyasia* ASPIRIN 81 MG CHEWABLE TABLET Take 2 tablets by mouth once * ATORVASTATIN 80 MG TABLET Take 80 mg by mouth once charleen* CARVEDILOL 3.125 MG TABLET Take 1 tablet by mouth twice * CEFTRIAXONE IVPB 2 G IN D5W 1* Inject 100 mL intravenously e* CHOLECALCIFEROL (VITAMIN D3) * Take 1 tablet by mouth once d* CYANOCOBALAMIN (VIT B-12) 100* Take 500 mcg by mouth once da* DARBEPOETIN TEREZA 60 MCG/0.3 M* Inject 0.3 mL subcutaneously * DOXYCYCLINE HYCLATE 100 MG CA* Take 1 capsule by mouth every* LEVOTHYROXINE 200 MCG TABLET Take 200 mcg by mouth daily b* PANTOPRAZOLE 20 MG TABLET,DEL* Take 1 tablet by mouth once d* THIAMINE HCL (VITAMIN B1) 100* Take 1 tablet by mouth once d* Problem List As Of Date 02/22/2018 Noted Resolved IRINA (acute kidney injury) (HCC) [N17.9] INVALID FOR* More... Malnutrition of moderate degree (HCC) [E44.0] INVALID FOR*01/23/2018 More... Hyperkalemia [E87.5] INVALID FOR*01/13/2018 More... Rectus sheath hematoma [S30.1XXA] INVALID FOR*01/23/2018 More... Anemia [D64.9] INVALID FOR*01/23/2018 More... Pancytopenia (HCC) [D61.818] INVALID FOR*01/23/2018 More... Lymphadenopathy [R59.1] INVALID FOR*01/22/2018 More... Atrial fibrillation (HCC) [I48.91] INVALID FOR* More... CVA, old, dysphagia [I69.391] INVALID FOR*01/23/2018 More... CAD (coronary artery disease) [I25.10] INVALID FOR*01/22/2018 More... HTN (hypertension) [I10] INVALID FOR* More... Heyd's syndrome (HCC) [K76.7] INVALID FOR*01/22/2018 More... Obesity, Class I, BMI 30-34.9 [E66.9] INVALID FOR*01/22/2018 Preop testing [Z01.818] INVALID FOR*01/22/2018 More... Subacute bacterial endocarditis [I33.0] INVALID FOR* More... Intravenous catheter in place [Z97.8] INVALID FOR*01/21/2018 More... Stress hyperglycemia [R73.9] INVALID FOR*01/23/2018 More... Pain, postoperative, acute [G89.18] INVALID FOR* More... Acute blood loss anemia [D62] INVALID FOR*01/22/2018 More... Transition of care performed with sharing of cl*INVALID FOR* More... Discharge planning issues [Z02.9] INVALID FOR* More... Hemothorax [J94.2] INVALID FOR* More... Encounter Status:Closed by CARLEEN DESOUZA on 03/02/18 CNPN Observed: 02/19/2018 Status: COMPLETED Source: [place]AN[place] 12:00 AM [facility] REPOSITORY Telephone (INFDMN) FRANK RIVERA ([id number]) 1955 M [facility] Date Time Provider Department 02/19/18 ROHIT OLIVAS [facility] During your visit today, we recorded the following information about you: Carleen Joshi 02/19/2018 9:26 AM Signed Called patient, to help with scheduling of sylvia catheter removal. No answer. Left message with call back number. Patient get dialysis, need to know what days in order to schedule. Carleen Durant [facility] 02/22/2018 11:29 AM Signed Patient's mom called about sylvia scheduling. [facility] was provided. Carleen Joshi Allergies As of Date: 02/19/2018 Noted Allergy Reaction PENICILLIN 12/24/2017 4 - Hives Date Reviewed: 02/04/2018 Reviewed by: Petra (Rn) DIEUDONNE Chau - Fully Assessed Reason for Visit: Future Appointment [256] Prescriptions as of 02/19/2018 Sig: ACETAMINOPHEN 325 MG TABLET Take 1-2 tablets by mouth nyasia* ASPIRIN 81 MG CHEWABLE TABLET Take 2 tablets by mouth once * CARVEDILOL 3.125 MG TABLET Take 1 tablet by mouth twice * CEFTRIAXONE IVPB 2 G IN D5W 1* Inject 100 mL intravenously e* CHOLECALCIFEROL (VITAMIN D3) * Take 1 tablet by mouth once d* DARBEPOETIN TEREZA 60 MCG/0.3 M* Inject 0.3 mL subcutaneously * DOXYCYCLINE HYCLATE 100 MG CA* Take 1 capsule by mouth every* THIAMINE HCL (VITAMIN B1) 100* Take 1 tablet by mouth once d* PANTOPRAZOLE 20 MG TABLET,DEL* Take 1 tablet by mouth once d* ATORVASTATIN 80 MG TABLET Take 80 mg by mouth once charleen* LEVOTHYROXINE 200 MCG TABLET Take 200 mcg by mouth daily b* CYANOCOBALAMIN (VIT B-12) 100* Take 500 mcg by mouth once da* Problem List As Of Date 02/19/2018 Noted Resolved IRINA (acute kidney injury) (HCC) [N17.9] INVALID FOR* More... Malnutrition of moderate degree (HCC) [E44.0] INVALID FOR*01/23/2018 More... Hyperkalemia [E87.5] INVALID FOR*01/13/2018 More... Rectus sheath hematoma [S30.1XXA] INVALID FOR*01/23/2018 More... Anemia [D64.9] INVALID FOR*01/23/2018 More... Pancytopenia (HCC) [D61.818] INVALID FOR*01/23/2018 More... Lymphadenopathy [R59.1] INVALID FOR*01/22/2018 More... Atrial fibrillation (HCC) [I48.91] INVALID FOR* More... CVA, old, dysphagia [I69.391] INVALID FOR*01/23/2018 More... CAD (coronary artery disease) [I25.10] INVALID FOR*01/22/2018 More... HTN (hypertension) [I10] INVALID FOR* More... Heyd's syndrome (HCC) [K76.7] INVALID FOR*01/22/2018 More... Obesity, Class I, BMI 30-34.9 [E66.9] INVALID FOR*01/22/2018 Preop testing [Z01.818] INVALID FOR*01/22/2018 More... Subacute bacterial endocarditis [I33.0] INVALID FOR* More... Intravenous catheter in place [Z97.8] INVALID FOR*01/21/2018 More... Stress hyperglycemia [R73.9] INVALID FOR*01/23/2018 More... Pain, postoperative, acute [G89.18] INVALID FOR* More... Acute blood loss anemia [D62] INVALID FOR*01/22/2018 More... Transition of care performed with sharing of cl*INVALID FOR* More... Discharge planning issues [Z02.9] INVALID FOR* More... Hemothorax [J94.2] INVALID FOR* More... Encounter Status:Closed by CARLEEN DESOUZA on 02/19/18 CBC W/DIFF, AUTOMATED Collected: 02/15/2018 Status: F Source: LUX 11:00 AM [facility] REPOSITORY TYPE CODE TESTS RESULT OUT OF RANGE REFERENCE UNITS LAB L100.1000 4.4-11.0 K/mm3 Normal WBC 5.2 LAB L100.1200 4.6-6.2 M/mm3 Low RBC 2.87 LAB L100.1300 13.0-16.5 g/dl Low HGB 9.0 LAB L100.1400 40-54 % Low HCT 28.8 LAB L100.1500 80-94 fL High MCV 100.3 LAB L100.1600 27.0-32.0 pg Normal MCH 31.4 LAB L100.1700 32-36 g/gl Low MCHC 31.3 LAB L100.1810 11.6-14.6 % High RDW CV 19.7 LAB L100.1820 35.1-43.9 fl High RDW SD 69.5 LAB L100.1900 150-450 K/mm3 Low PLT 133 LAB L100.2000 6.2-12.0 fl Normal MPV 9.2 LAB L100.2100 47-70 % Normal NEUT% 62.0 LAB L100.2200 19-41 % Normal LY% 24.6 LAB L100.2300 0-10 % Normal MONO% 9.1 LAB L100.2400 0-5 % Normal EO% 3.5 LAB L100.2500 0-1 % Normal BASO% 0.8 LAB L100.2550 0.0-0.9 % Normal IM GRAN % 0.000 Result Comment: IG% - Immature Granulocytes (promyelocytes, myelocytes and metamyelocytes) > 1% indicates that a LEFT SHIFT is Present. LAB L100.2620 2.0-7.7 X10 3/uL Normal Absolute Neut 3.2 LAB L100.2720 0.83-4.51 X10 3/ul Normal Absolute Lymph 1.27 LAB L100.4500 Normal SMEAR COMMENT SCANNED LAB L100.7300 Normal ANISO 1+ Performed By: #### L100.0100 #### [facility] [address] [place], [address] SERUM CREATININE AND Collected: 02/15/2018 Status: F Source: [place] GFR 11:00 AM [facility] REPOSITORY TYPE CODE TESTS RESULT OUT OF RANGE REFERENCE UNITS LAB L501.1100 0.70-1.30 mg/dL High 5.64 CREAT,SERUM Result Comment: The validity of the calculated GFR AND GFRAA in patients over 70 years has not been determined. Clinical correlation is essential. LAB L501.1110 >60 mL/min Low EST GFR 11 Result Comment: Non- GFR Calc LAB L501.1115 >60 mL/min Low EST GFR - AA 13 Result Comment: GFR Calc Performed By: #### L501.1105 #### [facility] [address] [place], [address] HOSP Observed: 02/15/2018 Status: COMPLETED Source: [place]AN[place] 12:00 AM [facility]POSIT[facility] Patient Update (INFDMN) FRANK RIVERA ([id number]) 1955 M T Date Time Provider Department 02/15/18 [facility] During your visit today, we recorded the following information about you: Allergies As of Date: 02/15/2018 Noted Allergy Reaction PENICILLIN 12/24/2017 4 - Hives Date Reviewed: 02/04/2018 Reviewed by: Petra (Dieudonne) DIEUDONNE Chau - Fully Assessed Reason for Visit: Outside Labs Results [437] Cmt: copat Order(s):CBC + DIFF [SQCBCDIF] Order #: [id number] COMP METABOLIC PANEL [SQCMP] Order #: [id number] Prescriptions as of 02/15/2018 Sig: ACETAMINOPHEN 325 MG TABLET Take 1-2 tablets by mouth nyasia* ASPIRIN 81 MG CHEWABLE TABLET Take 2 tablets by mouth once * CARVEDILOL 3.125 MG TABLET Take 1 tablet by mouth twice * CEFTRIAXONE IVPB 2 G IN D5W 1* Inject 100 mL intravenously e* CHOLECALCIFEROL (VITAMIN D3) * Take 1 tablet by mouth once d* DARBEPOETIN TEREZA 60 MCG/0.3 M* Inject 0.3 mL subcutaneously * DOXYCYCLINE HYCLATE 100 MG CA* Take 1 capsule by mouth every* THIAMINE HCL (VITAMIN B1) 100* Take 1 tablet by mouth once d* PANTOPRAZOLE 20 MG TABLET,DEL* Take 1 tablet by mouth once d* ATORVASTATIN 80 MG TABLET Take 80 mg by mouth once charleen* LEVOTHYROXINE 200 MCG TABLET Take 200 mcg by mouth daily b* CYANOCOBALAMIN (VIT B-12) 100* Take 500 mcg by mouth once da* Problem List As Of Date 02/15/2018 Noted Resolved IRINA (acute kidney injury) (HCC) [N17.9] INVALID FOR* More... Malnutrition of moderate degree (HCC) [E44.0] INVALID FOR*01/23/2018 More... Hyperkalemia [E87.5] INVALID FOR*01/13/2018 More... Rectus sheath hematoma [S30.1XXA] INVALID FOR*01/23/2018 More... Anemia [D64.9] INVALID FOR*01/23/2018 More... Pancytopenia (HCC) [D61.818] INVALID FOR*01/23/2018 More... Lymphadenopathy [R59.1] INVALID FOR*01/22/2018 More... Atrial fibrillation (HCC) [I48.91] INVALID FOR* More... CVA, old, dysphagia [I69.391] INVALID FOR*01/23/2018 More... CAD (coronary artery disease) [I25.10] INVALID FOR*01/22/2018 More... HTN (hypertension) [I10] INVALID FOR* More... Heyd's syndrome (HCC) [K76.7] INVALID FOR*01/22/2018 More... Obesity, Class I, BMI 30-34.9 [E66.9] INVALID FOR*01/22/2018 Preop testing [Z01.818] INVALID FOR*01/22/2018 More... Subacute bacterial endocarditis [I33.0] INVALID FOR* More... Intravenous catheter in place [Z97.8] INVALID FOR*01/21/2018 More... Stress hyperglycemia [R73.9] INVALID FOR*01/23/2018 More... Pain, postoperative, acute [G89.18] INVALID FOR* More... Acute blood loss anemia [D62] INVALID FOR*01/22/2018 More... Transition of care performed with sharing of cl*INVALID FOR* More... Discharge planning issues [Z02.9] INVALID FOR* More... Hemothorax [J94.2] INVALID FOR* More... Follow-up and Disposition History Recorded Encounter Status:Closed by CARLEEN DESOUZA on 02/19/18 CBC W/DIFF, AUTOMATED Collected: 02/09/2018 Status: F Source: LUX 8:30 AM [facility] REPOSITORY TYPE CODE TESTS RESULT OUT OF RANGE REFERENCE UNITS LAB L100.1000 4.4-11.0 K/mm3 Normal WBC 4.8 LAB L100.1200 4.6-6.2 M/mm3 Low RBC 3.15 LAB L100.1300 13.0-16.5 g/dl Low HGB 9.5 LAB L100.1400 40-54 % Low HCT 30.8 LAB L100.1500 80-94 fL High MCV 97.8 LAB L100.1600 27.0-32.0 pg Normal MCH 30.2 LAB L100.1700 32-36 g/gl Low MCHC 30.8 LAB L100.1810 11.6-14.6 % High RDW CV 19.8 LAB L100.1820 35.1-43.9 fl High RDW SD 68.3 LAB L100.1900 150-450 K/mm3 Low PLT 127 LAB L100.2000 6.2-12.0 fl Normal MPV 8.7 LAB L100.2100 47-70 % Normal NEUT% 60.5 LAB L100.2200 19-41 % Normal LY% 26.8 LAB L100.2300 0-10 % Normal MONO% 9.0 LAB L100.2400 0-5 % Normal EO% 2.9 LAB L100.2500 0-1 % Normal BASO% 0.6 LAB L100.2550 0.0-0.9 % Normal IM GRAN % 0.200 Result Comment: IG% - Immature Granulocytes (promyelocytes, myelocytes and metamyelocytes) > 1% indicates that a LEFT SHIFT is Present. LAB L100.2620 2.0-7.7 X10 3/uL Normal Absolute Neut 2.9 LAB L100.2720 0.83-4.51 X10 3/ul Normal Absolute Lymph 1.28 LAB L100.7300 ANISO Normal 1+ Performed By: #### L100.0100 #### [facility] [address] [place], [address] SERUM CREATININE AND Collected: 02/09/2018 Status: F Source: [place] GFR 8:30 AM [facility] REPOSITORY TYPE CODE TESTS RESULT OUT OF RANGE REFERENCE UNITS LAB L501.1100 0.70-1.30 mg/dL High 4.83 CREAT,SERUM Result Comment: The validity of the calculated GFR AND GFRAA in patients over 70 years has not been determined. Clinical correlation is essential. LAB L501.1110 >60 mL/min Low EST GFR 13 Result Comment: Non- GFR Calc LAB L501.1115 >60 mL/min Low EST GFR - AA 16 Result Comment: GFR Calc Performed By: #### L501.1105 #### [facility] [address] [place], [address] HOSP Observed: 02/09/2018 Status: COMPLETED Source: [place] 12:00 AM [facility] REPOSITORY Patient Update (INFDMN) FRANK RIVERA ([id number]) 1955 M [facility] Date Time Provider Department 02/09/18 [facility]IT OLIVAS [facility] During your visit today, we recorded the following information about you: Allergies As of Date: 02/09/2018 Noted Allergy Reaction PENICILLIN 12/24/2017 4 - Hives Date Reviewed: 02/04/2018 Reviewed by: Petra MarieRn) DIEUDONNE Chau - Fully Assessed Reason for Visit: Outside Labs Results [437] Cmt: copat Order(s):CBC + DIFF [SQCBCDIF] Order #: [id number] COMP METABOLIC PANEL [SQCMP] Order #: [id number] Prescriptions as of 02/09/2018 Sig: ACETAMINOPHEN 325 MG TABLET Take 1-2 tablets by mouth nyasia* ASPIRIN 81 MG CHEWABLE TABLET Take 2 tablets by mouth once * CARVEDILOL 3.125 MG TABLET Take 1 tablet by mouth twice * CEFTRIAXONE IVPB 2 G IN D5W 1* Inject 100 mL intravenously e* CHOLECALCIFEROL (VITAMIN D3) * Take 1 tablet by mouth once d* DARBEPOETIN TEREZA 60 MCG/0.3 M* Inject 0.3 mL subcutaneously * DOXYCYCLINE HYCLATE 100 MG CA* Take 1 capsule by mouth every* OXYCODONE 5 MG TABLET Take 1 tablet by mouth every * THIAMINE HCL (VITAMIN B1) 100* Take 1 tablet by mouth once d* PANTOPRAZOLE 20 MG TABLET,DEL* Take 1 tablet by mouth once d* ATORVASTATIN 80 MG TABLET Take 80 mg by mouth once charleen* LEVOTHYROXINE 200 MCG TABLET Take 200 mcg by mouth daily b* CYANOCOBALAMIN (VIT B-12) 100* Take 500 mcg by mouth once da* Problem List As Of Date 02/09/2018 Noted Resolved IRINA (acute kidney injury) (HCC) [N17.9] INVALID FOR* Priority: Mild More... Malnutrition of moderate degree (HCC) [E44.0] INVALID FOR*01/23/2018 Priority: M More... Hyperkalemia [E87.5] INVALID FOR*01/13/2018 More... Rectus sheath hematoma [S30.1XXA] INVALID FOR*01/23/2018 Priority: F More... Anemia [D64.9] INVALID FOR*01/23/2018 Priority: H More... Pancytopenia (HCC) [D61.818] INVALID FOR*01/23/2018 Priority: H More... Lymphadenopathy [R59.1] INVALID FOR*01/22/2018 More... Atrial fibrillation (HCC) [I48.91] INVALID FOR* Priority: Moderate More... CVA, old, dysphagia [I69.391] INVALID FOR*01/23/2018 Priority: L More... CAD (coronary artery disease) [I25.10] INVALID FOR*01/22/2018 More... HTN (hypertension) [I10] INVALID FOR* Priority: Mild More... Heyd's syndrome (HCC) [K76.7] INVALID FOR*01/22/2018 Priority: C More... Obesity, Class I, BMI 30-34.9 [E66.9] INVALID FOR*01/22/2018 Preop testing [Z01.818] INVALID FOR*01/22/2018 More... Subacute bacterial endocarditis [I33.0] INVALID FOR* Priority: Severe More... Intravenous catheter in place [Z97.8] INVALID FOR*01/21/2018 More... Stress hyperglycemia [R73.9] INVALID FOR*01/23/2018 Priority: E More... Pain, postoperative, acute [G89.18] INVALID FOR* Priority: J More... Acute blood loss anemia [D62] INVALID FOR*01/22/2018 More... Transition of care performed with sharing of cl*INVALID FOR* Priority: Very Severe More... Discharge planning issues [Z02.9] INVALID FOR* Priority: M More... Hemothorax [J94.2] INVALID FOR* Priority: Severe More... Encounter Status:Closed by CARLEEN DESOUZA on 02/16/18 CHEST PA AND LATERAL Observed: 02/08/2018 Status: F Source: [place] 4:24 PM [facility] REPOSITORY [facility] Imaging Services [address] [place] [id number] Chest PA and Lateral MR#: [id number] Acct: [id number] Name: FRANK RIVERA Rep #: [id number] : 1955 M 62 From: Brandon Vela MD PCP: Gracy Cuellar DO Status: REG CLI Study: Chest PA and Lateral Date of Exam: 02/08/18 Exam# [id number] Ordering Dr: Ricarod Cabello MD STUDY: X-RAY CHEST REASON FOR EXAM: Male, 62 years old. Follow-up cardiac valve replacement 3 weeks ago. History of additional valve replacement April 2017, pacemaker, renal dialysis. TECHNIQUE: PA and lateral views of the chest. COMPARISON: PA and lateral views of the chest October 26, 2017. Only the lateral projection of the December 15, 2017 studies available for comparison at the time of this dictation, and chest x-ray of December 16, 2017 was not available. FINDINGS: The dual lead left subclavian cardiac pacemaker seen in October 2017 has been removed. A multi epicardial pacer device passes through the subxiphoid subcutaneous to the anterior margins of the right heart. There is a dual lumen tunneled right chest wall dialysis catheter, its tips at the cavoatrial junction. An adjacent PICC line has its tip in the low superior vena cava. Pleural effusion now secures the posterolateral right costophrenic sulcus. There is mild volume loss in the right lung base. Left lung is clear and expanded. Normal size heart. Sternal cerclage wires are present from a prior sternotomy. A left 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 clip is again noted. Normal mediastinum and soren. Normal visualized pulmonary arteries. There is stable tortuosity of the distal descending thoracic aorta. There are stable multilevel degenerative changes of the visualized thoracic spine. Normal visualized ribs, clavicles, and shoulders. Surgical clips again seen clustered in the medial left upper quadrant beneath the diaphragm. RAD/Chest PA and Lateral IMPRESSION: 1. Small right pleural effusion with mild volume loss in the right lung base now present. 2. Previous left subclavian pacemaker has been removed, and a new multilead epicardial pacer passing up to the subxiphoid tissues probably outside the [id number] is now present. 3. Prior median sternotomy and clipping of left 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 again noted. The valve prostheses stated history not identified here. Heart size is normal. 4. Right-sided tunneled dialysis and PICC line catheters are now present. Electronically Signed: Christ Vela MD at 16:23 EST , Service support , CC: Gracy Cuellar DO; Ricardo Cabello MD Loss Prevention Operations Manager: Signed HOSP Observed: 02/05/2018 Status: COMPLETED Source: [place] 12:00 AM [facility] REPOSITORY Patient Update (INFDMN) FRANK RIVERA ([id number]) 1955 M T Date Time Provider Department 02/05[facility] During your visit today, we recorded the following information about you: Allergies As of Date: 02/05/2018 Noted Allergy Reaction PENICILLIN 12/24/2017 4 - Hives Date Reviewed: 02/04/2018 Reviewed by: Petra (Rn) DIEUDONNE Chau - Fully Assessed Reason for Visit: [employer] [[id number]] Prescriptions as of 02/05/2018 Sig: ACETAMINOPHEN 325 MG TABLET Take 1-2 tablets by mouth nyasia* ASPIRIN 81 MG CHEWABLE TABLET Take 2 tablets by mouth once * CARVEDILOL 3.125 MG TABLET Take 1 tablet by mouth twice * CEFTRIAXONE IVPB 2 G IN D5W 1* Inject 100 mL intravenously e* CHOLECALCIFEROL (VITAMIN D3) * Take 1 tablet by mouth once d* DARBEPOETIN TEREZA 60 MCG/0.3 M* Inject 0.3 mL subcutaneously * DOXYCYCLINE HYCLATE 100 MG CA* Take 1 capsule by mouth every* OXYCODONE 5 MG TABLET Take 1 tablet by mouth every * THIAMINE HCL (VITAMIN B1) 100* Take 1 tablet by mouth once d* PANTOPRAZOLE 20 MG TABLET,DEL* Take 1 tablet by mouth once d* ATORVASTATIN 80 MG TABLET Take 80 mg by mouth once charleen* LEVOTHYROXINE 200 MCG TABLET Take 200 mcg by mouth daily b* CYANOCOBALAMIN (VIT B-12) 100* Take 500 mcg by mouth once da* Problem List As Of Date 02/05/2018 Noted Resolved IRINA (acute kidney injury) (HCC) [N17.9] INVALID FOR* Priority: Mild More... Malnutrition of moderate degree (HCC) [E44.0] INVALID FOR*01/23/2018 Priority: M More... Hyperkalemia [E87.5] INVALID FOR*01/13/2018 More... Rectus sheath hematoma [S30.1XXA] INVALID FOR*01/23/2018 Priority: F More... Anemia [D64.9] INVALID FOR*01/23/2018 Priority: H More... Pancytopenia (HCC) [D61.818] INVALID FOR*01/23/2018 Priority: H More... Lymphadenopathy [R59.1] INVALID FOR*01/22/2018 More... Atrial fibrillation (HCC) [I48.91] INVALID FOR* Priority: Moderate More... CVA, old, dysphagia [I69.391] INVALID FOR*01/23/2018 Priority: L More... CAD (coronary artery disease) [I25.10] INVALID FOR*01/22/2018 More... HTN (hypertension) [I10] INVALID FOR* Priority: Mild More... Heyd's syndrome (HCC) [K76.7] INVALID FOR*01/22/2018 Priority: C More... Obesity, Class I, BMI 30-34.9 [E66.9] INVALID FOR*01/22/2018 Preop testing [Z01.818] INVALID FOR*01/22/2018 More... Subacute bacterial endocarditis [I33.0] INVALID FOR* Priority: Severe More... Intravenous catheter in place [Z97.8] INVALID FOR*01/21/2018 More... Stress hyperglycemia [R73.9] INVALID FOR*01/23/2018 Priority: E More... Pain, postoperative, acute [G89.18] INVALID FOR* Priority: J More... Acute blood loss anemia [D62] INVALID FOR*01/22/2018 More... Transition of care performed with sharing of cl*INVALID FOR* Priority: Very Severe More... Discharge planning issues [Z02.9] INVALID FOR* Priority: M More... Hemothorax [J94.2] INVALID FOR* Priority: Severe More... Questionnaire: COPAT AGENCY [facility] -> [facility]care Pharm Name: -> [facility] Homecare Pharm Ph # -> [phone] Vascular Access: -> sylvia Encounter Status:Closed by CARLEEN DESOUZA on 02/05/18 CNCO Observed: 02/05/2018 Status: COMPLETED Source: [place] 12:00 AM [facility] REPOSITORY Letter Text February 05, 2018 Frank Rivera [address] [place] [address] Dear Mr. Rivera, The nurses and staff of J5-1 nursing unit at [facility] hope this letter finds you feeling well and progressing in your recovery. It was an honor for us to provide your nursing care. We know that placing our Patients First and maintaining a culture of continuous improvement, each and every day, are essential to the success of our organization. We want to hear from you. If you have any comments, questions or concerns about your hospital stay, please feel free to contact me, Larry Knutson RN at [phone] or e-mail [email or web address]. Additionally, you will receive a survey in the mail asking you to rate the care you received while in the hospital. Please take the time to complete and send back the survey. I personally review all the results and would appreciate your feedback. Please consider completing this survey for each individual visit. Thank you in advance for your participation and thank you for choosing the [facility] for your healthcare needs. Sincerely, Larry Knutson RN Nurse Underwear Trimmer J5-1 Cardiovascular Surgery Step-down Unit PROGRESS Observed: 02/04/2018 Status: COMPLETED Source: [place] 4:21 PM [facility] REPOSITORY HNO ID: [id number] Author: Esperanza Ross Service: (none) Author Type: (none) Type: Progress Notes Filed: 02/08/2018 10:06 AM Note Text: DIALYSIS DISCHARGE CORRESPONDENCE NOTE NEPHROLOGY Q6/ESRD SERVICE Name of outpatient dialysis unit: [facility] Graphics Intern:James Fax number: [phone] Clinical plan faxed to outpatient dialysis unit within 24- 48 hours of discharge: no Including last 2 nephrology notes: yes Including last 2 RADHA dialysis orders: yes Including discharge summary: no If fax sent more than 48 hours after discharge, state reason : Waited for discharge summary, one was never placed in epic Fax confirmation received: Yes Date: 02-08-18 Time: 10:03 Contact [place]-dialysis unit at [phone] for any question about inpatient nephrology care. SIGNATURE: Esperanza Samaniego PATIENT NAME: Miguel DATE: 02-08-18 TIME: 10:03am PAGER: [email or web address] CASE MANAGEM Observed: 02/04/2018 Status: COMPLETED Source: [place] 2:58 PM [facility] REPOSITORY HNO ID: [id number] Author: Carleen MarieRn) DIEUDONNE Taylor Service: Care Management Author Type: Registered Nurse Type: Care Mgt Progress Note Filed: 02/04/2018 3:09 PM Note Text: CARE MANAGEMENT DISCHARGE NOTE SERVICE DATE: 02/04/2018 SERVICE TIME: 2:59 PM LOS: 42 days Admission Date: 12/24/2017 DISCHARGE ARRANGEMENT (list agency and phone number) [facility] pharmacy Provider: [facility] [address] [place] [address] [employer] ([facility]), an [employer] [facility] [place] [employer] [place], [place] CAREGIVER ASSESSMENT: Caregiver is ready, willing and able to meet the patient's needs as recommended by the inter-professional team? Yes Patient's transition needs and plan for meeting these needs: Will start outpatient dialysis tomorrow at [facility] Days:?Thursday/Thursday/Thursday Chair Time:?12:00pm Time of First Treatment:?Thursday?02-05-18 at 11:30am Accepting Graphics Intern:?Dr. Ramirez Phone:?[phone] Fax:?[phone] ? Facility called with discharge. Does the patient have an acute stroke diagnosis, or has the patient had a stroke during this admission? No HANDOFF COMMUNICATION: Primary Care Physician: Gracy Cuellar [facility] TRANSPORTATION ARRANGEMENTS: Car Family ADDITIONAL CONTACT RESOURCES: Given sheet with [facility] and home pharmacy numbers. Start of care for both are tomorrow afternoon. Spoke with both to inform of discharge today to the following address: [address] [place] [address], [address], [place] [address] Discharged in stable condition with all home going instructions. SIGNATURE: Carleen Taylor RN PATIENT NAME: Frank Rivera DATE: February 04, 2018 TIME: 2:59 PM PAGER/CONTACT #: [phone] CONSULT PROG Observed: 02/04/2018 Status: COMPLETED Source: [place] 1:07 PM [facility] REPOSITORY O ID: [id number] Author: Rohit Olivas Service: Infectious Disease Author Type: Physician Type: Consult Progress Note Filed: 02/04/2018 1:09 PM Note Text: INFECTIOUS DISEASE CONSULT SERVICE PROGRESS NOTE Patient Name: Frank Rivera POD # 16 SURGERY/PROCEDURE: Reoperation second open-heart surgery. Aortic valve with root debridement and replacement with 26-mm aortic homograft. Tricuspid valve repair according to Gretta. Removal of pacemaker and permanent leads and placement of new epicardial leads on RV, LV, and right atrium and implantation of a new pacemaker. POD # 7 SURGERY/PROCEDURE: Right VATS total decortication with evacuation of clot. Interval Events: Course reviewed Plans for discharge today Feels about the same In addition to those reviewed and documented in the HPI all other systems reviewed and were negative. MEDICATIONS Medications reviewed. Current hospital medications: carvedilol 3.125 mg tab(s) (COREG) 3.125 mg ORAL BID w MEALS polyethylene glycol 3350 17 g packet (MIRALAX, GLYCOLAX) 17 g ORAL BID oxyCODONE IR 5-10 mg tab(s) (ROXICODONE) 5-10 mg ORAL q 4 H PRN traMADol 50 mg tab(s) (ULTRAM) 50 mg ORAL q 12 H PRN aspirin 162 mg chewable tab(s) 162 mg ORAL DAILY atorvastatin 80 mg tab(s) (LIPITOR) 80 mg ORAL AT BEDTIME 0.9% NaCl 2-10 mL 2-10 mL INTRAVENOUS q 12 H senna-docusate 8.6-50 mg 1 tablet (SENNA-S) 1 tablet ORAL BID doxycycline hyclate 100 mg cap(s) (VIBRAMYCIN) 100 mg ORAL q 12 H ALPRAZolam 0.25 mg tab(s) (XANAX) 0.25 mg ORAL BID PRN 0.9% NaCl 3-5 mL 3-5 mL INTRAVENOUS q 12 H 0.9% NaCl 10 mL 10 mL INTRAVENOUS q 12 H therapeutic multivitamin 1 tablet tab(s) (THERA VITAMIN) 1 tablet ORAL DAILY WITH BREAKFAST pantoprazole DR 20 mg tab(s) (PROTONIX) 20 mg ORAL DAILY (6 AM) acetaminophen 650 mg tab(s) (TYLENOL) 650 mg ORAL q 4 H PRN bisacodyl 10 mg suppository (DULCOLAX) 10 mg RECTAL DAILY PRN heparin 5,000 Units injection 5,000 Units SUBCUTANEOUS q 12 H Darbepoetin Tereza In Polysorbat 60 mcg injection (ARANESP) 60 mcg SUBCUTANEOUS q MON ondansetron (PF) 4 mg injection (ZOFRAN) 4 mg INTRAVENOUS q 6 H PRN lidocaine 5 % 1 Patch (LIDODERM) 1 Patch TRANSDERMAL DAILY lidocaine patch - REMOVE OTHER AT BEDTIME lidocaine - VERIFY PATCH OTHER q 8 H cefTRIAXone 2 g in D5W 100 mL MB+ (ROCEPHIN) 2 g INTRAVENOUS q 24 H calcium carbonate 1,000 mg chewable tab(s) (TUMS) 1,000 mg ORAL/FEEDING TUBE BID PRN sodium chloride 0.65 % 2 [place] (AYR, OCEAN) 2 [place] EACH NOSTRIL TID PRN cholecalciferol 3,000 Units tab(s) (VITAMIN D3) 3,000 Units ORAL DAILY cyanocobalamin 500 mcg tab(s) (VITAMIN B-12) 500 mcg ORAL DAILY thiamine 100 mg tab(s) (VITAMIN B1) 100 mg ORAL DAILY diphenhydrAMINE 25 mg (BENADRYL) 25 mg ORAL q 6 H PRN tamsulosin ER 0.4 mg cap(s) (FLOMAX) 0.4 mg ORAL DAILY levothyroxine 200 mcg tab(s) (SYNTHROID) 200 mcg ORAL BEFORE BREAKFAST DAILY Examination: BP 152/91 Pulse 80 Temp 36.4 ?C (97.5 ?F) (Oral) Resp 18 Ht 193 cm (6' 4) Wt 98.6 kg (217 lb 4.8 oz) SpO2 94% BMI 26.45 kg/m? Temp (24hrs), Av.7 ?C (98 ?F), Min:36.4 ?C (97.5 ?F), Max:36.8 ?C (98.3 ?F) General appearance: Semiupright in bed, no distress, conversant Skin: no rash Head: neg Eyes: anicteric Oropharynx: neg Neck: Negative Back: not examined Lungs: Bit diminished right greater than left base Heart: rrnl, S1 and S2 Abdomen: soft, belly pacemaker site intact Extremities: Bilateral lower extremity edema Musculoskeletal: Negative Peripheral pulses: radial pulses palpable Tunneled dialysis catheter and Sylvia catheter in the right chest Sternotomy intact Exam unchanged as compared with 02/03 other than as edited above. Lab, Microbiology and Imaging Data: Personally reviewed imaging studies, laboratory results, and microbiology results. ASSESSMENT: 62-year-old with multiple medical problems including but not limited to atrial fibrillation, hypertension, and aortic stenosis status post aortic valve replacement in April 2017 with a permanent pacemaker placed shortly thereafter was transferred to our hospital on 12/24 for further evaluation of an acute kidney injury. He initially presented to an outside hospital on 12/19 for further evaluation of a new anemia and renal failure after presenting to his primary care physician with fatigue and shortness of breath. He was treated empirically with prednisone for a glomerular nephritis and transferred. 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 Positive serologies for antineutrophil cytoplasmic antibodies and myeloperoxidase. He is requiring renal replacement therapy. Notable aspects of his workup thus far from infectious disease perspective has included: 2 blood cultures 12/25-no growth to date Bartonella serologies-IgG for Bartonella henselae greater than 1:1024, IgG for Bartonella amato 1:1024 Transesophageal echocardiogram 01/01-2-3+ TR, 3+ AI, thickening of the aorto-mitral curtain and posterior LA wall suggestive of either hematoma or active infection, small mobile echodensity within the RA-vegetation versus thrombus CT chest cardiac 01/07-moderate diffuse leaflet calcification CT brain 01/07-no acute findings CT abdomen and pelvis 01/06-evolving large rectus sheath hematoma CT abdomen pelvis 01/17-rectus hematoma was stable craniocaudad dimensions but slight difference in axial configuration 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 Interestingly, despite his titers he has no obvious epidemiological link to this genus. In speaking with him and in reviewing his records there was no suspicion for endocarditis of the time of his operation in April. He continues to require renal replacement therapy. The patient was taken to the operating room on 01/19 and underwent SURGERY/PROCEDURE: Reoperation second open-heart surgery. Aortic valve with root debridement and replacement with 26-mm aortic homograft. Tricuspid valve repair according to Gretta. Removal of pacemaker and permanent leads and placement of new epicardial leads on RV, LV, and right atrium and implantation of a new pacemaker. . Operative findings: Vegetations on all 3 leaflets, partially dehisced valve, several penetrations into the annulus posteriorly under the left non-commissure and under the right non-commissure Operative cultures: No growth to date Histopathology: Specimen aortic valve-acute inflammation and focal calcification, cocci seen on GMS PCR: Bartonella species His postoperative course was notable for the development of a right hemothorax which required return to the operating room on 01/28 for VATS and hematoma evacuation. He is making gradual progress postoperatively. He is tolerating his antibiotics. He continues to require renal replacement therapy. RECOMMENDATIONS: Continue doxycycline 100 mg po every 12 hours Continue ceftriaxone 2 g IV every 24 hours At this time expect his discharge regimen to be- Ceftriaxone 2 g IV every 24 hours Doxycycline 100 mg by mouth every 12 hours Treat until 03/02/18. COPAT rx electronically signed and available in the outpatient encounter section of [facility], updated February 04, 2018. I can see him back in 02/24 at 13:00. Assessment and plan unchanged as compared with 02/03 except as edited above. Monitoring for ongoing therapeutic and potential untoward effect of antibiotic therapy. Following Signature: Rohit Olivas MD Pager: [phone] PLAN OF CARE Observed: 02/04/2018 Status: COMPLETED Source: [place] 12:25 PM [facility] REPOSITORY O ID: [id number] Author: Riley Stern (Pharmacist) Service: Pharmacy Author Type: Pharmacist Type: Plan of Care Filed: 02/04/2018 12:26 PM Note Text: DISCHARGE MEDICATION REVIEW BY PHARMACY Patient Name: Frank Rivera Account #: Data Unavailable Admission Date: 12/24/2017 Date of Contact: February 04, 2018 Time of Contact: 12:25 PM Medication list was reviewed by a Pharmacist for drug interactions or drug related problems:Yes Below is a summary of pharmacist recommendations discussed with LIP: The following medications were discussed with LIP for further review: Pantoprazole 20 mg daily since 01/20 vs Pantoprazole 40 mg BID (PRINCIPAL WEB DEVELOPER dosing) I have discussed the recommendations and the medication orders have been addressed by LIP. RILEY STERN PHARMACIST February 04, 2018 12:25 PM Pager: [phone] 02/04/2018 12:25 PM Medication List START taking these medications acetaminophen 325 mg tablet Commonly known as: TYLENOL Take 1-2 tablets by mouth every 4 hours as needed for Pain (for mild to moderate pain). aspirin 81 mg chewable tablet Take 2 tablets by mouth once daily. carvedilol 3.125 mg tablet Commonly known as: COREG Take 1 tablet by mouth twice daily with meals. cefTRIAXone 2 g in D5W 100 mL MB+ Commonly known as: ROCEPHIN Inject 100 mL intravenously every 24 hours. Cholecalciferol (Vitamin D3) 3,000 unit Tab Take 1 tablet by mouth once daily. Darbepoetin Tereza In Polysorbat 60 mcg/0.3 mL Syrg Commonly known as: ARANESP Inject 0.3 mL subcutaneously once each week. doxycycline hyclate 100 mg capsule Commonly known as: VIBRAMYCIN Take 1 capsule by mouth every 12 hours for 26 days. oxyCODONE IR 5 mg immediate release tablet Commonly known as: ROXICODONE Take 1 tablet by mouth every 6 hours as needed for Pain (for severe pain) for up to 7 days. thiamine 100 mg tablet Commonly known as: VITAMIN B1 Take 1 tablet by mouth once daily. CONTINUE taking these medications atorvastatin 80 mg tablet Commonly known as: LIPITOR LEVOXYL 200 mcg tablet Generic drug: levothyroxine pantoprazole DR 20 mg tablet Commonly known as: PROTONIX VITAMIN B-12 100 mcg Tab Generic drug: cyanocobalamin STOP taking these medications apixaban 5 mg tab(s) Commonly known as: ELIQUIS ascorbic acid-ascorbate sodium 500 mg Chew ferrous sulfate 325 mg (65 mg iron) tablet hydrALAZINE 25 mg tablet Commonly known as: APRESOLINE magnesium oxide 200 mg magnesium Tab metoprolol tartrate (short acting) 25 mg tablet Commonly known as: LOPRESSOR predniSONE 20 mg tablet Commonly known as: DELTASONE Where to Get Your Medications These [facility] ONLY - [place] [id number] - [address] [facility] - [phone] [address] [facility] [address] ? acetaminophen 325 mg tablet ? aspirin 81 mg chewable tablet ? carvedilol 3.125 mg tablet ? Cholecalciferol (Vitamin D3) 3,000 unit Tab ? doxycycline hyclate 100 mg capsule ? thiamine 100 mg tablet Information about where to get these medications is not yet available Ask your nurse or doctor about these medications ? cefTRIAXone 2 g in D5W 100 mL MB+ ? Darbepoetin Tereza In Polysorbat 60 mcg/0.3 mL Syrg ? oxyCODONE IR 5 mg immediate release tablet PLAN OF CARE Observed: 02/04/2018 Status: COMPLETED Source: [place] 12:16 PM [facility] REPOSITORY HNO ID: [id number] Author: Conchis Rubio (Redeem) Service: (none) Author Type: (none) Type: Plan of Care Filed: 02/04/2018 12:16 PM Note Text: Pharmacy Discharge Medication Service: This patient has elected to receive their discharge prescriptions through the [facility] Bedside Prescription Delivery program. The prescriptions are currently being processed. A follow-up note will be entered once the prescriptions have been filled and delivered to the patient. Please contact me with any questions or updates to the patient's discharge medications. Conchis Rubio (Redeem) DCT Contact Info: PLAN OF CARE Observed: 02/04/2018 Status: COMPLETED Source: [place] 12:15 PM [facility] REPOSITORY HNO ID: [id number] Author: Conchis Rubio (Redeem) Service: (none) Author Type: (none) Type: Plan of Care Filed: 02/04/2018 1:55 PM Note Text: RN DIABETES BEDSIDE DELIVERY SURVEY 1. Patient to use [facility] Bedside Delivery - YES 2. If fax, patient would like us to fax prescriptions to Pharmacy of choice a. Pharmacy: b. Location: c. Phone: 3. Insurance card on file - YES 4. Credit card for payment - YES No form of payment upon delivery @ 1:20pm PROGRESS Observed: 02/04/2018 Status: COMPLETED Source: [place] 11:16 AM [facility] REPOSIT[facility] O ID: [id number] Author: Adryan Rubalcava Service: Cardiac Surgery Author Type: Nurse Practitioner Type: Progress Notes Filed: 02/04/2018 11:18 AM Note Text: [facility] POSTOP PROGRESS NOTE Day of Surgery:01/28/2018 S/P SURGERY: 01/19/2018: Prosthetic aortic valve explant, Homograft implant as valve/root/ascending aorta and reimplantation of coronary buttons. Explant of right atrial and right ventricular endocardial leads and explant of generator left upper pectoral area. Implant of epicardial leads on right atrium, right ventricule and left ventricle. Pacemaker generator insertion left pre-rectus sheath 01/28/18 Right VATS, washout and hematoma evacuation, decortication INTERVAL EVENTS / PERTINENT ROS: Uneventful night Remains on RA CXR showed small bilateral pleural effusion Ambulating the hinojosa Rhythm: AV paced Intake/Output Summary (Last 24 hours) at 02/04/18 1116 Last data filed at 02/04/18 0838 Gross per 24 hour Intake 280 ml Output 0 ml Net 280 ml EKG: most recent image reviewed, most recent report reviewed TELE: most recent recordings reviewed CXR: most recent image reviewed, most recent report reviewed Echocardiogram: most recent report reviewed PHYSICAL EXAM: BP 145/94 Pulse 81 Temp 36.4 ?C (97.5 ?F) (Oral) Resp 18 Ht 193 cm (6' 4) Wt 98.6 kg (217 lb 4.8 oz) SpO2 94% BMI 26.45 kg/m? Neuro: AANDO x 3 moves all extremities with no apparent weakness CV: no jugular venous distention Heart Exam: RRR without murmur, gallop, or rubs. No ectopy. Resp: diminished breath sounds on the right base Abd: The abdomen is soft, nontender, nondistended; BS normal; no masses or organomegaly noted. Skin: Skin color, texture, turgor normal, no suspicious rashes or lesions Ext: 1+ edema Surgical incisions: clean, dry and intact Chest tube: No Pacer wires: No. HISTORY, ASSESSMENT AND PLAN: Problem Transition of Care Performed With Sharing of Clinical Summary Indication for Surgery: Infective endocarditis of aortic valve Preop LVEF: Normal RVF: mild Postop LVEF: Normal RVF: mild ECG: Paced CARDS: Can be anyone PMH/PSH: Aortic Stenosis s/p bioprosthetic AVR (27mm St. Richi Trifecta pericardial valve) and RUDY ligation 05/07/17, Atrial fibrillation /p PPM and DCCV in 04/2017 HTN ,Hypothyroidism,, Hx of CVA with residual dysphagia, Hx of Min-En-Y bypass in 1995, Hx of Upper GI bleeds (1997, 2014, 2015) Preop Hosp Course: 62y/o gentleman with atrial fibrillation and SSS s/p PPM, HTN, hypothyroidism, aortic stenosis s/p AVR and RUDY, history of Min-en-Y bypass c/b recurrent GIB, ADRIANNE, B12 deficiency, who presents to [facility] on 12/24/17 with fatigue and shortness of breath who was transferred from OSH with IRINA and renal biopsy concerning for C3 nephropathy. MICU transfer to initiate dialysis secondary to volume overload. CHANDRAKANT 01/01 showed AV vegetation. Airway Difficulty: Grade II - No special instrumentation Pacing Wires: No Chronological List of Surgeries and Major Events (Diagnosis): (Surgeries in bold characters) 01/19/2018: Prosthetic aortic valve explant, Homograft implant as valve/root/ascending aorta and reimplantation of coronary buttons. Explant of right atrial and right ventricular endocardial leads and explant of generator left upper pectoral area. Implant of epicardial leads on right atrium, right ventricule and left ventricle. Pacemaker generator insertion left pre-rectus sheath 01/28/18 Right VATS, washout and hematoma evacuation, decortication A/P of Major Active Problems (excluding routine care and common problems): -S/p reimplantation PPM. Formal device check done 01/25 and 01/28-Underlying SR in 30's -Endocarditis.Bartonella positive. ID following. On Rocephin QD/Doxycycline. RCW SYLVIA catheter intact. COPAT done. -Hx of Afib. On eliquis preop. Pacer check showed no AT/AF. -Mod right pleural effusion per CXR on 01/22-wastapped on the right with 850cc out. Chest CT per Dr. Alarcon. CT showed right moderate hemothorax. 01/28 VATS washout done per thoracic team-1 Liter of old blood and clots removed-drains removed per Thoracic. Thoracic signed off. Stable on RA. CXR stable. -IRINA-IHD MWF. RCW permacath intact. IHD done today. Plan for IHD Thursday. set up for Thursday session in hometown [place]. Nephro continue to follow -Anemia- Improving. No signs/symptoms of active bleeding. On Aranesp. Received 1 unit PRBC 01/28 and01/30. Today H/H 9.2/29.6 -Hypotension-Carvedilol on hold. Started on Midodrine 01/30 d/t SBP in 80's. Dose decreased 02/01. Frequency changed to BID today. Continue to wean as tolerated. -From [place], [place]. PT recs home. F2F done for IV therapy. DC today. Plans to follow up with home PCP and [facility] [employer] (requested). Hemothorax History: Developed hemothorax post AV explant Assessment: 01/28 s/p Right VATS, washout and hematoma evacuation, decortication. Stable on RA. Plan: Thoracic signed off. All R PL drains removed. 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 WBC 3.71. afebrile Plan: Continue ABx per ID. COPAT Completed. Atrial Fibrillation (Hcc) History: Hx post op AF, S/P DCC 06/07. On Apixaban and BB pre-op. Assessment: V paced on telemetry. No AF/AT per recent pacer check Plan: Discontinue midodrine and start low dose coreg. eliquis on hold d/t recent hemothorax. Htn (Hypertension) History: on hydralazine, lopressor at home Assessment: SBP improving 140's Plan: Coreg restarted. Midodrine stopped. Irina (Acute Kidney Injury) (Hcc) History: Started dialysis 12/27/17. permacath dialysis access Assessment: Scr 4.68. Oliguric. Plan: Plan for next session IHD Thursday. Renal following. Pain, Postoperative, Acute History: postop Assessment: reports pain is controlled at times. Plan: Optimize pain control w/ scheduled Lidoderm patches and Tylenol, prn Oxycodone/tramadol Discharge Planning Issues -from [place], [place]. PT recs home. DC today. Plans to follow up with home PCP and [facility] [employer] (requested) DAILY STEP DOWN CHECKLIST FOR CATHETER RELATED INFECTION PREVENTION CVC, PICC, Sylvia and/or Permacath present? Yes - Sylvia - needed for IV antibiotics Does the patient have a urinary catheter beyond POD 2? No VTE Risk Assessment: High risk VTE Mechanical and/or Pharmacologic Prophylaxis: IPC Device, GCS and Subcutaneous Heparin Labs and medications reviewed in Epic Case discussed in depth with: Dr. Garcia SIGNATURE: Adryan Rubalcava APRN.CNP PATIENT NAME: Frank Rivera DATE: February 04, 2018 TIME: 11:16 AM PAGER/CONTACT #: [phone] ETX#[id number] PROGRESS Observed: 02/04/2018 Status: COMPLETED Source: [place] 9:25 AM [facility] REPOSITORY HNO ID: [id number] Author: Gopal Morfin Service: (none) Author Type: (none) Type: Progress Notes Filed: 02/04/2018 9:25 AM Note Text: Radiology Service Progress Note PATIENT NAME: Frank Rivera DATE OF SERVICE: February 04, 2018 TIME: 9:25 AM PATIENT IDENTITY VERIFICATION COMPLETED USING TWO (2) METHODS: Patient confirmed name verbally and ID band matches.. PATIENT GENDER DATA: Male PATIENT RELEVANT IMPLANT DATA REVIEWED: Not Applicable RADIOLOGY DEPARTMENT: General X-ray: Exam(s) Completed: Chest X-Ray PERIPHERAL IV DATA: Not applicable SIGNED BY: Gopal Morfin February 04, 2018 9:25 AM XR CHEST 2V FRONTAL/LAT Observed: 02/04/2018 Status: F Source: [place] 9:24 AM [facility] REPOSITORY * * *Final Report* * * DATE OF EXAM: Feb 04 2018 9:24AM JIX [id number] - XR CHEST 2V FRONTAL/LAT / PROCEDURE REASON: Pleural effusion * * * * Physician Interpretation * * * * EXAMINATION: CHEST RADIOGRAPH (2 VIEW FRONTAL and LATERAL) CLINICAL HISTORY: Pleural effusion, Post-operative / post-procedure assessment, asymptomatic, MQ: XC2_5 Comparison: February 03, 2018 RESULT: Lines, tubes, and devices: Dual lumen right jugular line terminate in the atrium. Smaller right jugular line terminates in the lower superior vena cava. Lungs and pleura: There are bilateral pleural effusions and bibasilar atelectasis. There is pulmonary vascular redistribution and perihilar interstitial infiltrates which have improved slightly. There is a tiny right pneumothorax. Cardiomediastinal silhouette: Sternotomy sutures and multiple epicardial leads are present. There is a left 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 occlusion clip. There is cardiomegaly. Calcifications are in the aortic arch. Other: Degenerative change is in the thoracic spine. Surgical clips are in the left upper quadrant. IMPRESSION: Epicardial leads and left 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 occlusion clip Congestive heart failure and interstitial edema improved New tiny right pneumothorax Loss Prevention Operations Manager: PSCB Transcribe Date/Time: Feb 04 2018 1:48P Dictated by : AILYN QUESADA MD This examination was interpreted and the report reviewed and electronically signed by: AILYN QUESADA MD on Feb 04 2018 1:54PM EST [id number] CBC Collected: 02/04/2018 Status: F Source: [place] 5:13 AM [facility] REPOSITORY TYPE CODE TESTS RESULT OUT OF REFERENCE UNITS RANGE LAB WBC 3.70-11.00 k/uL WBC 3.71 LAB RBC 4.20-6.00 m/uL Low RBC 3.01 LAB HGB 13.0-17.0 g/dL Low Hemoglobin 9.2 LAB HCT 39.0-51.0 % Low Hematocrit 29.6 LAB MCV 80.0-100.0 fL MCV 98.3 LAB MCH 26.0-34.0 pG MCH 30.6 LAB MCHC 30.5-36.0 g/dL MCHC 31.1 LAB RDWCV 11.5-15.0 % RDW-CV High 18.9 LAB PLTCT 150-400 k/uL Low Platelet Count 101 LAB MPV 9.0-12.7 fL Low MPV 8.7 LAB ABSNUC <0.01 k/uL Absolute nRBC <0.01 Performed By: #### CBC, CMP #### [facility] [address] [place] [address] COMP METABOLIC PANEL Collected: 02/04/2018 Status: F Source: [place]AN[place] 5:13 AM [facility] REPOSITORY TYPE CODE TESTS RESULT OUT OF REFERENCE UNITS RANGE LAB TP 6.3-8.0 g/dL Protein, Total 6.8 LAB ALB 3.9-4.9 g/dL Low Albumin 2.2 LAB CA 8.5-10.2 mg/dL Low Calcium, Total 8.2 LAB TBIL 0.2-1.3 mg/dL Bilirubin, Total 0.4 LAB ALKP 38-113 U/L Alkaline High Phosphatase 115 LAB AST 14-40 U/L AST 21 LAB GLU 74-99 mg/dL Glucose 74 Result Comment: The [place] [employer] (ADA) provides guidance for cutoff values for fasting glucose and random glucose. The ADA defines fasting as no caloric intake for at least 8 hours. Fas ting plasma glucose results between 100 to 125 mg/dL indicate increased risk for diabetes (prediabetes). Fasting plasma glucose results greater than or equal to 126 mg/dL meet the criteria for diagnosis of diabetes. In the absence of unequivocal hyperglycemia, results should be confirmed by repeat testing. In a patient with classic symptoms of hyperglycemia or hyperglycemic crisis, random plasma glucose results greater than or equal to 200 mg/dL meet the criteria for diagnosis of diabetes. Reference: Standards of Medical Care in Diabetes 2016, [place] [employer] Association. Diabetes Care. 2016.39(Suppl 1). LAB BUN 9-24 mg/dL BUN 14 LAB CRET 0.73-1.22 mg/dL Creatinine High 3.67 LAB NA 136-144 mmol/L Sodium 137 LAB K 3.7-5.1 mmol/L Potassium 4.3 LAB CL 97-105 mmol/L Chloride 104 LAB CO2 22-30 mmol/L CO2 25 LAB AGAP 9-18 mmol/L Low Anion Gap 8 LAB ALT 10-54 U/L Low ALT 8 LAB GFRAA eGFR- Amer. 21 LAB GFRNAA . eGFR-All Other Races 17 Result Comment: eGFR (Estimated GFR) Units of measure: mL/min/1.73 meters squared eGFR is derived from the reexpressed MDRD Study equation using the following parameters: serum creatinine, age, gender and race. The creatinine assay has been calibrated to be traceable to IDMS. An eGFR <60 mL/min/1.73m2 for >3 months is consistent with chronic kidney disease. Refer to KDOQI guidelines for clinical interpretation. In patients with unstable renal function, e.g. those with acute kidney injury, the eGFR may not accurately reflect actual GFR. Performed By: #### CBC, CMP #### [facility] [address] [place] [address] PROGRESS Observed: 02/03/2018 Status: COMPLETED Source: [place] 5:06 PM [facility] REPOSITORY HNO ID: [id number] Author: Amanda Leal Service: Nursing Author Type: Nurse Practitioner Type: Progress Notes Filed: 02/03/2018 5:11 PM Note Text: [facility] POSTOP PROGRESS NOTE Day of Surgery:01/28/2018 S/P SURGERY: 01/28/2018 INTERVAL EVENTS / PERTINENT ROS: -Doing well today. No acute issues -Endocarditis-Continue Rocephin and Doxycycline per ID. COPAT completed. -H/o Afib-Eliquis pre-op, Discuss with Dr. Alarcon if Eliquis needs to be resumed on discharge. 01/29 Device check underlying rhythm was SB in 30's -Moderate Hemothorax-VATS washout 01/28 with thoracic-1 Liter old blood and clots retrieved.CTs dc'd per thoracic. Have signed off. Stable on RA -Anemia continues to mprove H/H 8.9/28.8 today-Stool for occult ordered -Hypotension-improving SBP 140's- Midodrine weaned to BID today -IRINA- SrCr 4.68 today. Next IHD Thursday. -Encourage Ambulation Rhythm: PPM Intake/Output Summary (Last 24 hours) at 02/03/18 1708 Last data filed at 02/03/18 1258 Gross per 24 hour Intake 340 ml Output 800 ml Net -460 ml EKG: most recent image reviewed TELE: most recent recordings reviewed CXR: most recent image reviewed Echocardiogram: most recent report reviewed PHYSICAL EXAM: BP 138/97 Pulse 79 Temp 36.7 ?C (98.1 ?F) (Oral) Resp 18 Ht 193 cm (6' 4) Wt 102.2 kg (225 lb 3.2 oz) SpO2 97% BMI 27.41 kg/m? Neuro: AANDO x 3 moves all extremities with no apparent weakness CV: no jugular venous distention Heart Exam: RRR without murmur, gallop, or rubs. No ectopy. Resp: clear to auscultation bilaterally and diminished breath sounds. Resp even/unlabored Abd: The abdomen is soft, nontender, nondistended; BS normal; no masses or organomegaly noted. Skin: Skin color, texture, turgor normal, no suspicious rashes or lesions Ext: Trace edema Surgical incisions: Well approximated. No drainage or erythema Chest tube: No Pacer wires: No. HISTORY, ASSESSMENT AND PLAN: Problem Transition of Care Performed With Sharing of Clinical Summary Indication for Surgery: Infective endocarditis of aortic valve Preop LVEF: Normal RVF: mild Postop LVEF: Normal RVF: mild ECG: Paced CARDS: Can be anyone PMH/PSH: Aortic Stenosis s/p bioprosthetic AVR (27mm St. Richi Trifecta pericardial valve) and RUDY ligation 05/07/17, Atrial fibrillation /p PPM and DCCV in 04/2017 HTN ,Hypothyroidism,, Hx of CVA with residual dysphagia, Hx of Min-En-Y bypass in 1995, Hx of Upper GI bleeds (1997, 2014, 2015) Preop Hosp Course: 62y/o gentleman with atrial fibrillation and SSS s/p PPM, HTN, hypothyroidism, aortic stenosis s/p AVR and RUDY, history of Min-en-Y bypass c/b recurrent GIB, ADRIANNE, B12 deficiency, who presents to [facility] on 12/24/17 with fatigue and shortness of breath who was transferred from OSH with IRINA and renal biopsy concerning for C3 nephropathy. MICU transfer to initiate dialysis secondary to volume overload. CHANDRAKANT 01/01 showed AV vegetation. Airway Difficulty: Grade II - No special instrumentation Pacing Wires: No Chronological List of Surgeries and Major Events (Diagnosis): (Surgeries in bold characters) 01/19/2018: Prosthetic aortic valve explant, Homograft implant as valve/root/ascending aorta and reimplantation of coronary buttons. Explant of right atrial and right ventricular endocardial leads and explant of generator left upper pectoral area. Implant of epicardial leads on right atrium, right ventricule and left ventricle. Pacemaker generator insertion left pre-rectus sheath 01/28/18 Right VATS, washout and hematoma evacuation, decortication A/P of Major Active Problems (excluding routine care and common problems): -S/p reimplantation PPM. Formal device check done 01/25 and 01/28-Underlying SR in 's -Endocarditis.Bartonella positive. ID following. On Rocephin QD/Doxycycline. RCW SYLVIA catheter intact. COPAT done. -Hx of Afib. On eliquis preop. Pacer check showed no AT/AF. Discuss if resumption of eliquis is needed on discharge -Mod right pleural effusion per CXR on 01/22-wastapped on the right with 850cc out. Chest CT per Dr. Alarcon. CT showed right moderate hemothorax. 01/28 VATS washout done per thoracic team-1 Liter of old blood and clots removed-drains removed per Thoracic. Thoracic signed off. Stable on RA -IRINA-IHD MWF. RCW permacath intact. IHD done today. Plan for IHD Thursday. Is set up for Thursday session in hometown [place]. Nephro continue to follow -Anemia- Improving. No signs/symptoms of active bleeding. On Aranesp. Received 1 unit PRBC 01/28 and01/30. Today H/H 8.9/28.8 -Hypotension-Carvedilol on hold. Started on Midodrine 01/30 d/t SBP in 80's. Dose decreased 02/01. Frequency changed to BID today. Continue to wean as tolerated. -From [place], [place]. PT recs home. F2F done for IV therapy. Possible Discharge tomorrow or Thursday. Plans to follow up with home PCP and [facility] [employer] (requested). Hemothorax History: Developed hemothorax post AV explant Assessment: 01/28 s/p Right VATS, washout and hematoma evacuation, decortication. Stable on RA. Plan: Thoracic signed off. All R PL drains removed. 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 WBC 4.90. afebrile Plan: Continue ABx per ID. COPAT Completed. Atrial Fibrillation (Hcc) History: Hx post op AF, S/P DCC 06/07. On Apixaban and BB pre-op. Assessment: V paced on telemetry. No AF/AT per recent pacer check Plan: Discontinued Coreg- due to hypotension. Started on Midodrine 01/30 for SBP 80's. Weaned down today-will wean as BP allows. Home med Apixaban - discuss with CTS regarding AC Htn (Hypertension) History: on hydralazine, lopressor at home Assessment: SBP improving 140's Plan: Coreg on hold. Weaned Midodrine down today. Will continue to wean as BP allows Irina (Acute Kidney Injury) (Hcc) History: Started dialysis 12/27/17. permacath dialysis access Assessment: Scr 4.68. Oliguric. Plan: Plan for next session IHD Thursday. Renal following. Pain, Postoperative, Acute History: postop Assessment: reports pain is controlled at times. Plan: Optimize pain control w/ scheduled Lidoderm patches and Tylenol, prn Oxycodone/tramadol Discharge Planning Issues -from [place], [place]. PT recs home. Possible discharge tomorrow or Thursday. Plans to follow up with home PCP and [facility] [employer] (requested) DAILY STEP DOWN CHECKLIST FOR CATHETER RELATED INFECTION PREVENTION CVC, PICC, Sylvia and/or Permacath present? No Does the patient have a urinary catheter beyond POD 2? No VTE Risk Assessment: Moderate risk VTE Mechanical and/or Pharmacologic Prophylaxis: IPC Device, GCS and Subcutaneous Heparin Labs and medications reviewed in Epic Case discussed in depth with: Dr. Alarcon SIGNATURE: Amanda Leal APRN.CNP PATIENT NAME: Frank Rivera DATE: February 03, 2018 TIME: PAGER/CONTACT #: [phone] ETX#[id number] CONSULT PROG Observed: 02/03/2018 Status: COMPLETED Source: [place] 4:35 PM [facility] REPOSITORY O ID: [id number] Author: Ray Conde MD Service: Nephrology Author Type: Physician Type: Consult Progress Note Filed: 02/03/2018 10:41 PM Note Text: CONSULT PROGRESS NOTE NEPHROLOGY SERVICE SERVICE DATE: 02/03/2018 SERVICE TIME: 10:35 PM Subjective INTERVAL HISTORY: No acute issues reported. Patient seen on dialysis, tolerating treatment. MEDICATIONS: Current hospital medications: midodrine 5 mg tab(s) (PROAMITINE) 5 mg ORAL BID 9a/5p polyethylene glycol 3350 17 g packet (MIRALAX, GLYCOLAX) 17 g ORAL BID oxyCODONE IR 5-10 mg tab(s) (ROXICODONE) 5-10 mg ORAL q 4 H PRN traMADol 50 mg tab(s) (ULTRAM) 50 mg ORAL q 12 H PRN aspirin 162 mg chewable tab(s) 162 mg ORAL DAILY atorvastatin 80 mg tab(s) (LIPITOR) 80 mg ORAL AT BEDTIME 0.9% NaCl 2-10 mL 2-10 mL INTRAVENOUS q 12 H senna-docusate 8.6-50 mg 1 tablet (SENNA-S) 1 tablet ORAL BID doxycycline hyclate 100 mg cap(s) (VIBRAMYCIN) 100 mg ORAL q 12 H ALPRAZolam 0.25 mg tab(s) (XANAX) 0.25 mg ORAL BID PRN 0.9% NaCl 3-5 mL 3-5 mL INTRAVENOUS q 12 H 0.9% NaCl 10 mL 10 mL INTRAVENOUS q 12 H therapeutic multivitamin 1 tablet tab(s) (THERA VITAMIN) 1 tablet ORAL DAILY WITH BREAKFAST pantoprazole DR 20 mg tab(s) (PROTONIX) 20 mg ORAL DAILY (6 AM) acetaminophen 650 mg tab(s) (TYLENOL) 650 mg ORAL q 4 H PRN bisacodyl 10 mg suppository (DULCOLAX) 10 mg RECTAL DAILY PRN heparin 5,000 Units injection 5,000 Units SUBCUTANEOUS q 12 H Darbepoetin Tereza In Polysorbat 60 mcg injection (ARANESP) 60 mcg SUBCUTANEOUS q MON ondansetron (PF) 4 mg injection (ZOFRAN) 4 mg INTRAVENOUS q 6 H PRN lidocaine 5 % 1 Patch (LIDODERM) 1 Patch TRANSDERMAL DAILY lidocaine patch - REMOVE OTHER AT BEDTIME lidocaine - VERIFY PATCH OTHER q 8 H cefTRIAXone 2 g in D5W 100 mL MB+ (ROCEPHIN) 2 g INTRAVENOUS q 24 H calcium carbonate 1,000 mg chewable tab(s) (TUMS) 1,000 mg ORAL/FEEDING TUBE BID PRN sodium chloride 0.65 % 2 [place] (AYR, OCEAN) 2 [place] EACH NOSTRIL TID PRN cholecalciferol 3,000 Units tab(s) (VITAMIN D3) 3,000 Units ORAL DAILY cyanocobalamin 500 mcg tab(s) (VITAMIN B-12) 500 mcg ORAL DAILY thiamine 100 mg tab(s) (VITAMIN B1) 100 mg ORAL DAILY diphenhydrAMINE 25 mg (BENADRYL) 25 mg ORAL q 6 H PRN tamsulosin ER 0.4 mg cap(s) (FLOMAX) 0.4 mg ORAL DAILY levothyroxine 200 mcg tab(s) (SYNTHROID) 200 mcg ORAL BEFORE BREAKFAST DAILY Objective PHYSICAL EXAM: BP 138/88 Pulse 80 Temp 36.7 ?C (98.1 ?F) (Oral) Resp 18 Ht 193 cm (6' 4) Wt 102.2 kg (225 lb 3.2 oz) SpO2 93% BMI 27.41 kg/m? Intake/Output Summary (Last 24 hours) at 02/03/18 2235 Last data filed at 02/03/18 1258 Gross per 24 hour Intake 220 ml Output 0 ml Net 220 ml Constitutional: No acute distress and Responsive Neck: Trachea midline No jugular venous distension Cardiovascular: Heart sounds: Rate: Normal Edema present: 2+ Respiratory: Normal respiratory effort. Lungs clear bilaterally. Abdomen: Soft, non-tender, non-distended. Normal bowel sounds. No hepatosplenomegaly. Psychiatric: Alert and oriented x self, place, time, and setting Normal mood/affect Vascular Access: Hemodialysis catheter location: Right Tunneled internal jugular. Exit site demonstrates: normal findings DATA: Diagnostic tests reviewed for today's visit: Most recent labs Recent Labs 02/03/184 02/02/18 0420 02/01/18 0630 01/31/18 0532 01/30/18 0540 NA 135* 135* 133* 134* 134* K 4.5 4.4 4.9 4.9 5.0 CHLOR 102 100 98 99 98 CO2 25 25 24 24 25 BUN 24 18 30* 23 16 CREAT 4.68* 4.25* 6.08* 5.31* 4.00* GLUC 76 76 67* 73* 73* ANION 8* 10 11 11 11 CA 8.4* 8.0* 8.5 8.2* 8.1* Recent Labs 02/03/18 0414 02/02/18 0420 02/01/18 0630 WBC 4.90 4.45 5.19 HB 8.9* 8.5* 8.2* HCT 28.8* 26.8* 26.0* PLT 107* 102* 103* Assessment/Plan 62 year old male with PMH including A-fibb, s/p AVR, history of CVA, Fe deficiency anemia and hemolytic anemia presented to [facility] as a transfer from OSH on 12/24. ?Initial presentation to OSH was due to suspected GI bleed. Patient was transferred to [facility] upon worsening of renal function. ?S/p MVR 01/19/18, VATS 01/28. ? Per Dr. Candelario's note from 12/30/17 Renal biopsy slides from outside hospital reviewed today with Dr. 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 No need for steroids. Need to get ID consult and PCR for Bartonella. Consider CHANDRAKANT. The patient may have infected pacer wires. PLAN 1. Though his solute level is rising between dialysis sessions, the rate of rise appears to be slightly slowing and his UOP is picking up --- early renal recovery? 2. For now he need dialysis and will plan on 3 liters of volume removal. 3. Tentative plan for next treatment on Thursday. Ray Conde MD, ARVIN Moe Endowed Chair in Nephrology and Hypertension Research Cyber Systems Administratorgear and spline grinder [facility] [place] SIGNATURE: Ray Conde MD PATIENT NAME: Frank Rivera DATE: February 03, 2018 TIME: 4:35 PM PAGER: [phone] CONSULT PROG Observed: 02/03/2018 Status: COMPLETED Source: [place]AN[place] 4:14 PM [facility] REPOSITORY HNO ID: [id number] Author: Rohit Olivas Service: Infectious Disease Author Type: Physician Type: Consult Progress Note Filed: 02/03/2018 4:16 PM Note Text: INFECTIOUS DISEASE CONSULT SERVICE PROGRESS NOTE Patient Name: Frank Rivera POD # 15 SURGERY/PROCEDURE: Reoperation second open-heart surgery. Aortic valve with root debridement and replacement with 26-mm aortic homograft. Tricuspid valve repair according to Gretta. Removal of pacemaker and permanent leads and placement of new epicardial leads on RV, LV, and right atrium and implantation of a new pacemaker. POD # 6 SURGERY/PROCEDURE: Right VATS total decortication with evacuation of clot. Interval Events: Course reviewed Plans for dialysis today Urinated some yesterday but not much In addition to those reviewed and documented in the HPI all other systems reviewed and were negative. MEDICATIONS Medications reviewed. Current hospital medications: midodrine 5 mg tab(s) (PROAMITINE) 5 mg ORAL BID 9a/5p oxyCODONE IR 5-10 mg tab(s) (ROXICODONE) 5-10 mg ORAL q 4 H PRN traMADol 50 mg tab(s) (ULTRAM) 50 mg ORAL q 12 H PRN aspirin 162 mg chewable tab(s) 162 mg ORAL DAILY atorvastatin 80 mg tab(s) (LIPITOR) 80 mg ORAL AT BEDTIME 0.9% NaCl 2-10 mL 2-10 mL INTRAVENOUS q 12 H senna-docusate 8.6-50 mg 1 tablet (SENNA-S) 1 tablet ORAL BID polyethylene glycol 3350 17 g packet (MIRALAX, GLYCOLAX) 17 g ORAL DAILY doxycycline hyclate 100 mg cap(s) (VIBRAMYCIN) 100 mg ORAL q 12 H ALPRAZolam 0.25 mg tab(s) (XANAX) 0.25 mg ORAL BID PRN 0.9% NaCl 3-5 mL 3-5 mL INTRAVENOUS q 12 H 0.9% NaCl 10 mL 10 mL INTRAVENOUS q 12 H therapeutic multivitamin 1 tablet tab(s) (THERA VITAMIN) 1 tablet ORAL DAILY WITH BREAKFAST pantoprazole DR 20 mg tab(s) (PROTONIX) 20 mg ORAL DAILY (6 AM) acetaminophen 650 mg tab(s) (TYLENOL) 650 mg ORAL q 4 H PRN bisacodyl 10 mg suppository (DULCOLAX) 10 mg RECTAL DAILY PRN heparin 5,000 Units injection 5,000 Units SUBCUTANEOUS q 12 H Darbepoetin Tereza In Polysorbat 60 mcg injection (ARANESP) 60 mcg SUBCUTANEOUS q MON ondansetron (PF) 4 mg injection (ZOFRAN) 4 mg INTRAVENOUS q 6 H PRN lidocaine 5 % 1 Patch (LIDODERM) 1 Patch TRANSDERMAL DAILY lidocaine patch - REMOVE OTHER AT BEDTIME lidocaine - VERIFY PATCH OTHER q 8 H cefTRIAXone 2 g in D5W 100 mL MB+ (ROCEPHIN) 2 g INTRAVENOUS q 24 H calcium carbonate 1,000 mg chewable tab(s) (TUMS) 1,000 mg ORAL/FEEDING TUBE BID PRN sodium chloride 0.65 % 2 [place] (AYR, OCEAN) 2 [place] EACH NOSTRIL TID PRN cholecalciferol 3,000 Units tab(s) (VITAMIN D3) 3,000 Units ORAL DAILY cyanocobalamin 500 mcg tab(s) (VITAMIN B-12) 500 mcg ORAL DAILY thiamine 100 mg tab(s) (VITAMIN B1) 100 mg ORAL DAILY diphenhydrAMINE 25 mg (BENADRYL) 25 mg ORAL q 6 H PRN tamsulosin ER 0.4 mg cap(s) (FLOMAX) 0.4 mg ORAL DAILY levothyroxine 200 mcg tab(s) (SYNTHROID) 200 mcg ORAL BEFORE BREAKFAST DAILY Examination: BP 138/97 Pulse 79 Temp 36.7 ?C (98.1 ?F) (Oral) Resp 18 Ht 193 cm (6' 4) Wt 102.2 kg (225 lb 3.2 oz) SpO2 97% BMI 27.41 kg/m? Temp (24hrs), Av.7 ?C (98.1 ?F), Min:36.6 ?C (97.9 ?F), Max:36.8 ?C (98.3 ?F) General appearance: Up in a chair at the site of the bed, reasonable spirits Skin: no rash Head: neg Eyes: anicteric Oropharynx: neg Neck: Negative Back: not examined Lungs: Bit diminished right greater than left base Heart: rrnl, S1 and S2 Abdomen: soft, belly pacemaker site intact Extremities: Bilateral lower extremity edema Musculoskeletal: Negative Peripheral pulses: radial pulses palpable Tunneled dialysis catheter and Sylvia catheter in the right chest Sternotomy intact Exam unchanged as compared with 02/02 other than as edited above. Lab, Microbiology and Imaging Data: Personally reviewed imaging studies, laboratory results, and microbiology results. ASSESSMENT: 62-year-old with multiple medical problems including but not limited to atrial fibrillation, hypertension, and aortic stenosis status post aortic valve replacement in April 2017 with a permanent pacemaker placed shortly thereafter was transferred to our hospital on 12/24 for further evaluation of an acute kidney injury. He initially presented to an outside hospital on 12/19 for further evaluation of a new anemia and renal failure after presenting to his primary care physician with fatigue and shortness of breath. He was treated empirically with prednisone for a glomerular nephritis and transferred. 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 Positive serologies for antineutrophil cytoplasmic antibodies and myeloperoxidase. He is requiring renal replacement therapy. Notable aspects of his workup thus far from infectious disease perspective has included: 2 blood cultures 12/25-no growth to date Bartonella serologies-IgG for Bartonella henselae greater than 1:1024, IgG for Bartonella amato 1:1024 Transesophageal echocardiogram 01/01-2-3+ TR, 3+ AI, thickening of the aorto-mitral curtain and posterior LA wall suggestive of either hematoma or active infection, small mobile echodensity within the RA-vegetation versus thrombus CT chest cardiac 01/07-moderate diffuse leaflet calcification CT brain 01/07-no acute findings CT abdomen and pelvis 01/06-evolving large rectus sheath hematoma CT abdomen pelvis 01/17-rectus hematoma was stable craniocaudad dimensions but slight difference in axial configuration 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 Interestingly, despite his titers he has no obvious epidemiological link to this genus. In speaking with him and in reviewing his records there was no suspicion for endocarditis of the time of his operation in April. He continues to require renal replacement therapy. The patient was taken to the operating room on 01/19 and underwent SURGERY/PROCEDURE: Reoperation second open-heart surgery. Aortic valve with root debridement and replacement with 26-mm aortic homograft. Tricuspid valve repair according to Gretta. Removal of pacemaker and permanent leads and placement of new epicardial leads on RV, LV, and right atrium and implantation of a new pacemaker. . Operative findings: Vegetations on all 3 leaflets, partially dehisced valve, several penetrations into the annulus posteriorly under the left non-commissure and under the right non-commissure Operative cultures: No growth to date Histopathology: Specimen aortic valve-acute inflammation and focal calcification, cocci seen on GMS PCR: Bartonella species His postoperative course was notable for the development of a right hemothorax which required return to the operating room on 01/28 for VATS and hematoma evacuation. He is making gradual progress postoperatively. He is tolerating his antibiotics. He continues to require renal replacement therapy. RECOMMENDATIONS: Continue doxycycline 100 mg po every 12 hours Continue ceftriaxone 2 g IV every 24 hours At this time expect his discharge regimen to be- Ceftriaxone 2 g IV every 24 hours Doxycycline 100 mg by mouth every 12 hours Treat until 03/02/18. COPAT rx electronically signed and available in the outpatient encounter section of [facility], updated February 01, 2018. I can see him back in 02/24 at 13:00. Assessment and plan unchanged as compared with 02/02 except as edited above. Monitoring for ongoing therapeutic and potential untoward effect of antibiotic therapy. Following Signature: Rohit Olivas MD Pager: [phone] CASE MANAGEM Observed: 02/03/2018 Status: COMPLETED Source: PLANO 2:08 PM [facility] REPOSITORY HNO ID: [id number] Author: Dilcia MarieRn) DIEUDONNE Cisse Service: Care Management Author Type: Registered Nurse Type: Care Mgt Progress Note Filed: 02/03/2018 2:19 PM Note Text: CARE MANAGEMENT PROGRESS NOTE SERVICE DATE: 02/03/2018 SERVICE TIME: 2:08 PM LOS: 41 days FREEDOM OF CHOICE GIVEN: Yes Patient and mother Financial Disclosure Provided The patient and/or family has been given the Provider List: No Provider List: Home Care and Home Care Pharmacy Preference: Pt wants services provided by [facility]. They do not have HIP, and prefer [facility]. Needs Prior to Discharge: Ready for Discharge Procedure Needed: outpatient dialysis Met with pt and team. Pt may be ready for discaharge tomorrow. Pt is set up with outpatient dialysis at : Facility: [facility] PLEASE UPDATE WITH SOC DATE- they are expecting him Thursday at 1130. Days: Thursday/Thursday/Thursday Chair Time: 12:00pm Time of First Treatment: Thursday02-05-18 at 11:30am Accepting Graphics Intern: Dr. Ramirez Accepted to: [facility] for SN Accepted by: [facility] an [employer] [place], [place] for HIP. Antibiotic time will need to be changed from 0900 until after his afternoon dialysis. SOC set for Thursday after dialysis unless pt does not discharge on as expected. SIGNATURE: Dilcia Cisse RN PATIENT NAME: Frank Rivera DATE: February 03, 2018 TIME: 2:08 PM PAGER/CONTACT #: [phone] NURSING PROG Observed: 02/03/2018 Status: COMPLETED Source: [place]AN[place] 2:04 PM [facility] REPOSITORY HNO ID: [id number] Author: Kennedi MarieRn) DIEUDONNE Rodriguez Service: Nursing Author Type: Registered Nurse Type: Nursing Progress Note Filed: 02/03/2018 2:05 PM Note Text: Nursing Progress Note Patient Name: Frank Rivera [id number] SCRN: Prevalence pressure injury assessment completed as per protocol. Pressure injury prevention measures in place. Education provided. Voices understanding. This note was completed by: Kennedi Rodriguez RN PROGRESS Observed: 02/03/2018 Status: COMPLETED Source: [place]ANO 7:54 AM [facility] REPOSITORY O ID: [id number] Author: Delano MarieRtEve Bang Service: Radiology Author Type: Spray Rig Operator Type: Progress Notes Filed: 02/03/2018 7:55 AM Note Text: Radiology Service Progress Note PATIENT NAME: Frank Rivera DATE OF SERVICE: February 03, 2018 TIME: 7:54 AM PATIENT IDENTITY VERIFICATION COMPLETED USING TWO (2) METHODS: Patient confirmed name verbally and Date of . PATIENT GENDER DATA: Male PATIENT RELEVANT IMPLANT DATA REVIEWED: Not Applicable RADIOLOGY DEPARTMENT: General X-ray: Exam(s) Completed: Chest X-Ray PERIPHERAL IV DATA: Not applicable SIGNED BY: RT Dawson February 03, 2018 7:54 AM XR CHEST 2V FRONTAL/LAT Observed: 02/03/2018 Status: F Source: PLANO 7:53 AM [facility] REPOSITORY * * *Final Report* * * DATE OF EXAM: Feb 03 2018 7:53AM JIX [id number] - XR CHEST 2V FRONTAL/LAT / PROCEDURE REASON: Pleural effusion * * * * Physician Interpretation * * * * CHEST RADIOGRAPH (2 VIEW PA and LATERAL) Indication: Pleural effusion M: XC2_1 Comparison: Chest radiograph dated 02/02/2018 RESULTS: See impression. IMPRESSION: Lines, tubes, and devices: Right IJ catheters x2 appear in stable position. Patient is status post median sternotomy and placement of a left 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 occlusion clip. Retained epicardial leads are noted. Lungs and pleura: There are small bilateral pleural effusions, right greater than left with adjacent lower lung zone opacities, likely representing atelectasis. Nonspecific lucency at the lateral right lung base may be due to gas in the right pleural space (hydropneumothorax), stable. There may be a trace right apical pneumothorax. Vague reticular opacities may be due to vascular congestion versus mild interstitial edema, overall unchanged. No new consolidative opacity. Cardiomediastinal silhouette: Stable enlargement of the cardiomediastinal silhouette. Other: Mild endplate degenerative changes are present within the thoracic spine. Surgical clips overlie the left upper abdominal quadrant. Loss Prevention Operations Manager: [facility] Transcribe Date/Time: Feb 03 2018 10:54A Dictated by : TOBIAS KELLOGG MD This examination was interpreted and the report reviewed and electronically signed by: TOBIAS KELLOGG MD on Feb 03 2018 11:01AM EST [id number] CBC Collected: 02/03/2018 Status: F Source: PLANO 4:14 AM [facility] REPOSITORY TYPE CODE TESTS RESULT OUT OF REFERENCE UNITS RANGE LAB WBC 3.70-11.00 k/uL WBC 4.90 LAB RBC 4.20-6.00 m/uL Low RBC 2.92 LAB HGB 13.0-17.0 g/dL Low Hemoglobin 8.9 LAB HCT 39.0-51.0 % Low Hematocrit 28.8 LAB MCV 80.0-100.0 fL MCV 98.6 LAB MCH 26.0-34.0 pG MCH 30.5 LAB MCHC 30.5-36.0 g/dL MCHC 30.9 LAB RDWCV 11.5-15.0 % RDW-CV High 18.8 LAB PLTCT 150-400 k/uL Low Platelet Count 107 LAB MPV 9.0-12.7 fL MPV 9.5 LAB ABSNUC <0.01 k/uL Absolute nRBC <0.01 Performed By: #### CBC, CMP #### [facility] [address] [place], [place] [address] COMP METABOLIC PANEL Collected: 02/03/2018 Status: F Source: PLANO 4:[address] [facility] REPOSITORY TYPE CODE TESTS RESULT OUT OF REFERENCE UNITS RANGE LAB TP 6.3-8.0 g/dL Protein, Total 6.5 LAB ALB 3.9-4.9 g/dL Low Albumin 2.3 LAB CA 8.5-10.2 mg/dL Low Calcium, Total 8.4 LAB TBIL 0.2-1.3 mg/dL Bilirubin, Total 0.5 LAB ALKP 38-113 U/L Alkaline Phosphatase 113 LAB AST 14-40 U/L AST 20 LAB GLU 74-99 mg/dL Glucose 76 Result Comment: The [place] Diabetes Association (ADA) provides guidance for cutoff values for fasting glucose and random glucose. The ADA defines fasting as no caloric intake for at least 8 hours. Fas ting plasma glucose results between 100 to 125 mg/dL indicate increased risk for diabetes (prediabetes). Fasting plasma glucose results greater than or equal to 126 mg/dL meet the criteria for diagnosis of diabetes. In the absence of unequivocal hyperglycemia, results should be confirmed by repeat testing. In a patient with classic symptoms of hyperglycemia or hyperglycemic crisis, random plasma glucose results greater than or equal to 200 mg/dL meet the criteria for diagnosis of diabetes. Reference: Standards of Medical Care in Diabetes 2016, [place] Diabetes Association. Diabetes Care. 2016.39(Suppl 1). LAB BUN 9-24 mg/dL BUN 24 LAB CRET 0.73-1.22 mg/dL Creatinine High 4.68 LAB NA 136-144 mmol/L Low Sodium 135 LAB K 3.7-5.1 mmol/L Potassium 4.5 LAB CL 97-105 mmol/L Chloride 102 LAB CO2 22-30 mmol/L CO2 25 LAB AGAP 9-18 mmol/L Low Anion Gap 8 LAB ALT 10-54 U/L ALT 10 LAB GFRAA eGFR- Amer. 15 LAB GFRNAA . eGFR-All Other Races 13 Result Comment: eGFR (Estimated GFR) Units of measure: mL/min/1.73 meters squared eGFR is derived from the reexpressed MDRD Study equation using the following parameters: serum creatinine, age, gender and race. The creatinine assay has been calibrated to be traceable to IDMS. An eGFR <60 mL/min/1.73m2 for >3 months is consistent with chronic kidney disease. Refer to KDOQI guidelines for clinical interpretation. In patients with unstable renal function, e.g. those with acute kidney injury, the eGFR may not accurately reflect actual GFR. Performed By: #### CBC, CMP #### [facility] [address] [place], [place] [address] THERAPY NT Observed: 02/02/2018 Status: COMPLETED Source: PLANO 4:43 PM [facility] REPOSITORY HNO ID: [id number] Author: Cecilia Watson/Hanny Gonzales Service: Occupational Therapy Author Type: Occupational Therapist Type: Therapy (PT/OT/Speech/Resp) Filed: 02/02/2018 4:43 PM Note Text: OCCUPATIONAL THERAPY MISSED VISIT SERVICE DATE: 02/02/2018 SERVICE TIME: 1119 to 1119 ROOM: [place] [address] Attempted Treatment. Patient not seen due to Test/Procedure, patient off floor. Will follow up as able. SIGNATURE: Cecilia Gonzales OT/Jenni PATIENT NAME: Frank Rivera DATE: February 02, 2018 TIME: 4:43 PM PROGRESS Observed: 02/02/2018 Status: COMPLETED Source: PLANO 4:35 PM [facility] REPOSITORY HNO ID: [id number] Author: Amanda Leal Service: Nursing Author Type: Nurse Practitioner Type: Progress Notes Filed: 02/02/2018 4:49 PM Note Text: [facility] POSTOP PROGRESS NOTE Day of Surgery:01/28/2018 S/P SURGERY: 01/28/2018 INTERVAL EVENTS / PERTINENT ROS: -Endocarditis-Continue Rocephin and Doxycycline per ID -H/o Afib-Eliquis pre-op, Discuss with Dr. Alarcon if Eliquis needs to be resumed. -Moderate Hemothorax-VATS washout 01/28 with thoracic-1 Liter old blood and clots retrieved.CTs dc'd per thoracic -Anemia-improving H/H 8.5/26.8 today-Stool for occult ordered -Hypotension-improving SBP 120's- on Midodrine TID-dose decreased today -IRINA- SrCr 4.25 today. Next IHD Thursday Rhythm: PPM Intake/Output Summary (Last 24 hours) at 02/02/18 1649 Last data filed at 02/01/18 2104 Gross per 24 hour Intake 340 ml Output 0 ml Net 340 ml EKG: most recent image reviewed TELE: most recent recordings reviewed CXR: most recent image reviewed Echocardiogram: most recent report reviewed PHYSICAL EXAM: BP 120/81 Pulse 80 Temp 36.5 ?C (97.7 ?F) (Oral) Resp 16 Ht 193 cm (6' 4) Wt 101.2 kg (223 lb 3.2 oz) SpO2 92% BMI 27.17 kg/m? Neuro: AANDO x 3 moves all extremities with no apparent weakness CV: no jugular venous distention Heart Exam: RRR without murmur, gallop, or rubs. No ectopy. Resp: clear to auscultation bilaterally and diminished breath sounds. Resp even/unlabored Abd: The abdomen is soft, nontender, nondistended; BS normal; no masses or organomegaly noted. Skin: Skin color, texture, turgor normal, no suspicious rashes or lesions Ext: Trace edema Surgical incisions: Well approximated. No drainage or erythema Chest tube: No Pacer wires: No. HISTORY, ASSESSMENT AND PLAN: Problem Transition of Care Performed With Sharing of Clinical Summary Indication for Surgery: Infective endocarditis of aortic valve Preop LVEF: Normal RVF: mild Postop LVEF: Normal RVF: mild ECG: Paced PMH/PSH: Aortic Stenosis s/p bioprosthetic AVR (27mm St. Richi Trifecta pericardial valve) and RUDY ligation 05/07/17, Atrial fibrillation /p PPM and DCCV in 04/2017 HTN ,Hypothyroidism,, Hx of CVA with residual dysphagia, Hx of Min-En-Y bypass in 1995, Hx of Upper GI bleeds (1997, 2014, 2015) Preop Hosp Course: 62y/o gentleman with atrial fibrillation and SSS s/p PPM, HTN, hypothyroidism, aortic stenosis s/p AVR and RUDY, history of Min-en-Y bypass c/b recurrent GIB, ADRIANNE, B12 deficiency, who presents to [facility] on 12/24/17 with fatigue and shortness of breath who was transferred from OSH with IRINA and renal biopsy concerning for C3 nephropathy. MICU transfer to initiate dialysis secondary to volume overload. CHANDRAKANT 01/01 showed AV vegetation. Airway Difficulty: Grade II - No special instrumentation Pacing Wires: No Chronological List of Surgeries and Major Events (Diagnosis): (Surgeries in bold characters) 01/19/2018: Prosthetic aortic valve explant, Homograft implant as valve/root/ascending aorta and reimplantation of coronary buttons. Explant of right atrial and right ventricular endocardial leads and explant of generator left upper pectoral area. Implant of epicardial leads on right atrium, right ventricule and left ventricle. Pacemaker generator insertion left pre-rectus sheath 01/28/18 Right VATS, washout and hematoma evacuation, decortication A/P of Major Active Problems (excluding routine care and common problems): -S/p reimplantation PPM. Formal device check done 01/25 -Endocarditis. ID following. On Rocephin QD/Doxycycline. RCW SYLVIA catheter intact -Hx of Afib. On eliquis preop. Recent pacer check showed no AT/AF. Discuss resumption of eliquis once hemothorax resolved. -Mod right pleural effusion per cxr. Was tapped on the right with 850cc on 01/22. Chest CT per Dr. Alarcon. CT showed right moderate hemothorax. 01/28 VATS washout done per thoracic team-1 Liter of old blood and clots removed. Thoracic following. CTs removed per thoracic. Stable on RA -IRINA-IHD MWF. RCW permacath intact. IHD done today-1500 off. Plan for IHD Thursday per renal. Nephro continue to follow -Anemia- On Aranesp. Received 1 unit PRBC 01/28. 01/30 H/H 7.6/24.3 with hypotension-1 unit of PRBC to be transfused. Today H/H 8.5/26.8 -Hypotension-Carvedilol on hold.Started on Midodrine 01/30. Dose decreased 02/01-continue to wean as tolerated -from [place], [place]. PT recs home. No DC date yet. Plans to follow up with home PCP and [facility] [employer] (not requested). Hemothorax History: Developed hemothorax post AV explant Assessment: 01/28 s/p Right VATS, washout and hematoma evacuation, decortication. Stable on RA. Plan: Thoracic following. All R PL drains removed. 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 WBC 4.45. afebrile Plan: Continue ABx per ID Atrial Fibrillation (Hcc) History: Hx post op AF, S/P DCC 06/07. On Apixaban and BB pre-op. Assessment: V paced on telemetry. No AF/AT per recent pacer check Plan: Discontinued Coreg- due to hypotension. Started on Midodrine 01/30 for SBP 80's. Weaned dose down today-will wean as BP allows. Home med Apixaban - discuss with CTS regarding AC Htn (Hypertension) History: on hydralazine, lopressor at home Assessment: SBP improving 120's Plan: Coreg on hold. Weaned dose of Midodrine down today. Will continue to wean as BP allows Irina (Acute Kidney Injury) (Hcc) History: started dialysis 12/27/17. permacath dialysis access Assessment: Scr 6.08. Oliguric. Plan: Plan for next session IHD Thursday. Renal following. Pain, Postoperative, Acute History: postop Assessment: reports pain is controlled at times. Plan: Optimize pain control w/ scheduled Lidoderm patches and Tylenol, prn Oxycodone/tramadol. Discharge Planning Issues -from [place], [place]. PT recs home. No DC date yet. Plans to follow up with home PCP and [facility] [employer]. DAILY STEP DOWN CHECKLIST FOR CATHETER RELATED INFECTION PREVENTION CVC, PICC, Sylvia and/or Permacath present? No Does the patient have a urinary catheter beyond POD 2? No VTE Risk Assessment: Moderate risk VTE Mechanical and/or Pharmacologic Prophylaxis: IPC Device, GCS and Subcutaneous Heparin Labs and medications reviewed in Epic Case discussed in depth with: Dr. Alarcon SIGNATURE: Amanda Leal APRN.CNP PATIENT NAME: Frank Rivera DATE: February 02, 2018 TIME: PAGER/CONTACT #: [phone] ETX#[id number] CONSULT PROG Observed: 02/02/2018 Status: COMPLETED Source: [place] 4:21 PM [facility] REPOSITORY O ID: [id number] Author: Rohit Olivas Service: Infectious Disease Author Type: Physician Type: Consult Progress Note Filed: 02/02/2018 4:25 PM Note Text: INFECTIOUS DISEASE CONSULT SERVICE PROGRESS NOTE Patient Name: Frank Rivera POD # 14 SURGERY/PROCEDURE: Reoperation second open-heart surgery. Aortic valve with root debridement and replacement with 26-mm aortic homograft. Tricuspid valve repair according to Gretta. Removal of pacemaker and permanent leads and placement of new epicardial leads on RV, LV, and right atrium and implantation of a new pacemaker. POD # 5 SURGERY/PROCEDURE: Right VATS total decortication with evacuation of clot. Interval Events: course reviewed plans to go to the [facility] this afternoon MEDICATIONS Medications reviewed. Current hospital medications: midodrine 5 mg tab(s) (PROAMITINE) 5 mg ORAL q 8 H oxyCODONE IR 5-10 mg tab(s) (ROXICODONE) 5-10 mg ORAL q 4 H PRN traMADol 50 mg tab(s) (ULTRAM) 50 mg ORAL q 12 H PRN aspirin 162 mg chewable tab(s) 162 mg ORAL DAILY atorvastatin 80 mg tab(s) (LIPITOR) 80 mg ORAL AT BEDTIME 0.9% NaCl 2-10 mL 2-10 mL INTRAVENOUS q 12 H senna-docusate 8.6-50 mg 1 tablet (SENNA-S) 1 tablet ORAL BID polyethylene glycol 3350 17 g packet (MIRALAX, GLYCOLAX) 17 g ORAL DAILY doxycycline hyclate 100 mg cap(s) (VIBRAMYCIN) 100 mg ORAL q 12 H ALPRAZolam 0.25 mg tab(s) (XANAX) 0.25 mg ORAL BID PRN 0.9% NaCl 3-5 mL 3-5 mL INTRAVENOUS q 12 H 0.9% NaCl 10 mL 10 mL INTRAVENOUS q 12 H therapeutic multivitamin 1 tablet tab(s) (THERA VITAMIN) 1 tablet ORAL DAILY WITH BREAKFAST pantoprazole DR 20 mg tab(s) (PROTONIX) 20 mg ORAL DAILY (6 AM) acetaminophen 650 mg tab(s) (TYLENOL) 650 mg ORAL q 4 H PRN bisacodyl 10 mg suppository (DULCOLAX) 10 mg RECTAL DAILY PRN heparin 5,000 Units injection 5,000 Units SUBCUTANEOUS q 12 H Darbepoetin Tereza In Polysorbat 60 mcg injection (ARANESP) 60 mcg SUBCUTANEOUS q MON ondansetron (PF) 4 mg injection (ZOFRAN) 4 mg INTRAVENOUS q 6 H PRN lidocaine 5 % 1 Patch (LIDODERM) 1 Patch TRANSDERMAL DAILY lidocaine patch - REMOVE OTHER AT BEDTIME lidocaine - VERIFY PATCH OTHER q 8 H cefTRIAXone 2 g in D5W 100 mL MB+ (ROCEPHIN) 2 g INTRAVENOUS q 24 H calcium carbonate 1,000 mg chewable tab(s) (TUMS) 1,000 mg ORAL/FEEDING TUBE BID PRN sodium chloride 0.65 % 2 [place] (AYR, OCEAN) 2 [place] EACH NOSTRIL TID PRN cholecalciferol 3,000 Units tab(s) (VITAMIN D3) 3,000 Units ORAL DAILY cyanocobalamin 500 mcg tab(s) (VITAMIN B-12) 500 mcg ORAL DAILY thiamine 100 mg tab(s) (VITAMIN B1) 100 mg ORAL DAILY diphenhydrAMINE 25 mg (BENADRYL) 25 mg ORAL q 6 H PRN tamsulosin ER 0.4 mg cap(s) (FLOMAX) 0.4 mg ORAL DAILY levothyroxine 200 mcg tab(s) (SYNTHROID) 200 mcg ORAL BEFORE BREAKFAST DAILY Examination: BP 120/81 Pulse 80 Temp 36.5 ?C (97.7 ?F) (Oral) Resp 16 Ht 193 cm (6' 4) Wt 101.2 kg (223 lb 3.2 oz) SpO2 92% BMI 27.17 kg/m? Temp (24hrs), Av.6 ?C (97.9 ?F), Min:36.5 ?C (97.7 ?F), Max:36.7 ?C (98 ?F) General appearance: Up in a chair at the site of the bed, family visiting Skin: no rash Head: neg Eyes: anicteric Oropharynx: neg Neck: Negative Back: not examined Lungs: CTA Heart: rrnl, S1 and S2 Abdomen: soft, belly pacemaker site intact Extremities: Bilateral lower extremity edema Musculoskeletal: Negative Peripheral pulses: radial pulses palpable Tunneled dialysis catheter and Sylvia catheter in the right chest Sternotomy intact Exam unchanged as compared with 02/01 other than as edited above. Lab, Microbiology and Imaging Data: Personally reviewed imaging studies, laboratory results, and microbiology results. ASSESSMENT: 62-year-old with multiple medical problems including but not limited to atrial fibrillation, hypertension, and aortic stenosis status post aortic valve replacement in April 2017 with a permanent pacemaker placed shortly thereafter was transferred to our hospital on 12/24 for further evaluation of an acute kidney injury. He initially presented to an outside hospital on 12/19 for further evaluation of a new anemia and renal failure after presenting to his primary care physician with fatigue and shortness of breath. He was treated empirically with prednisone for a glomerular nephritis and transferred. 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 Positive serologies for antineutrophil cytoplasmic antibodies and myeloperoxidase. He is requiring renal replacement therapy. Notable aspects of his workup thus far from infectious disease perspective has included: 2 blood cultures 12/25-no growth to date Bartonella serologies-IgG for Bartonella henselae greater than 1:1024, IgG for Bartonella amato 1:1024 Transesophageal echocardiogram 01/01-2-3+ TR, 3+ AI, thickening of the aorto-mitral curtain and posterior LA wall suggestive of either hematoma or active infection, small mobile echodensity within the RA-vegetation versus thrombus CT chest cardiac 01/07-moderate diffuse leaflet calcification CT brain 01/07-no acute findings CT abdomen and pelvis 01/06-evolving large rectus sheath hematoma CT abdomen pelvis 01/17-rectus hematoma was stable craniocaudad dimensions but slight difference in axial configuration 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 Interestingly, despite his titers he has no obvious epidemiological link to this genus. In speaking with him and in reviewing his records there was no suspicion for endocarditis of the time of his operation in April. He continues to require renal replacement therapy. The patient was taken to the operating room on 01/19 and underwent SURGERY/PROCEDURE: Reoperation second open-heart surgery. Aortic valve with root debridement and replacement with 26-mm aortic homograft. Tricuspid valve repair according to Gretta. Removal of pacemaker and permanent leads and placement of new epicardial leads on RV, LV, and right atrium and implantation of a new pacemaker. . Operative findings: Vegetations on all 3 leaflets, partially dehisced valve, several penetrations into the annulus posteriorly under the left non-commissure and under the right non-commissure Operative cultures: No growth to date Histopathology: Specimen aortic valve-acute inflammation and focal calcification, cocci seen on GMS PCR: Bartonella species His postoperative course was notable for the development of a right hemothorax which required return to the operating room on 01/28 for VATS and hematoma evacuation. He is making gradual progress postoperatively. He is tolerating his antibiotics. RECOMMENDATIONS: Continue doxycycline 100 mg po every 12 hours Continue ceftriaxone 2 g IV every 24 hours At this time expect his discharge regimen to be- Ceftriaxone 2 g IV every 24 hours Doxycycline 100 mg by mouth every 12 hours Treat until 03/02/18. COPAT rx electronically signed and available in the outpatient encounter section of [facility] [facility], updated February 01, 2018. I can see him back in 02/24 at 13:00. Assessment and plan unchanged as compared with 02/01 except as edited above. Monitoring for ongoing therapeutic and potential untoward effect of antibiotic therapy. Following Signature: Rohit Olivas MD Pager: [phone] THERAPY NT Observed: 02/02/2018 Status: COMPLETED Source: [place] 9:50 AM [facility] REPOSITORY HNO ID: [id number] Author: Tianna (PtJennifer Cabral Service: Physical Therapy Author Type: Physical Therapist Type: Therapy (PT/OT/Speech/Resp) Filed: 02/02/2018 1:32 PM Note Text: Physical Therapy Treatment SERVICE DATE: 02/02/2018 SERVICE TIME: 924 to 949 ROOM: [place] [address] Recommended Discharge Disposition: Home Recommended Discharge Disposition Comments: May progress to ambulation without AD Anticipated Discharge Needs: Physical Assist at Home Physical Assist at Home for: Transportation;Shopping;Laundry;Cleaning Recommended Discharge Equipment: Wheeled Walker PT Recommendations to Nursing: Ambulate with device;To bathroom;In halls;OOB for Meals;With assist of 1 person Device: Wheeled Walker PT 6 Clicks Score: 23 Precautions/Activity Restrictions: Sternal ASSESSMENT : Pt. presents with decreased activity tolerance, decreased strength and decreased balance limiting functional mobility. Recommend continued skilled PT services in the hospital to maximize safety/independence prior to discharge home. Rec d/c home with PRN assist. May benefit from use of wheeled walker initially at home. Encouraged increased ambulation on unit 4-6x/day with supervision and use of wheeled walker. Patient Disposition at Start of Session: Supine in Bed Patient Disposition at End of Session: Supine in Bed Tolerated Full Session Physical Therapy Problem List: Education Deficit;Impaired Self Care;Functional Mobility Impairment Patient /Caregiver Goals: Go Home;Care For Self Goals for Plan of Care: Able to perform HEP with: Independent Rolling with: Modified Independent Transfer supine to/from sit with: Modified Independent Transfer sit to/from stand with: Modified Independent Ambulate with: Modified Independent Distance: >500 ft Device: (least restrictive device) Ambulate up and down steps with: Modified Independent Number of steps: 1 Device: Rail Progress Toward Goals: Progressing slower than expected Due To: surgery Rehab Potential: Good PLAN: Treatment Frequency (times per week): 2 Current admission Treatment Interventions: Education;Self Care / Home Management;Energy Conservation Training;Strengthening;Functional Mobility Training;Balance Training;Neuromuscular Re-education;Pain Management Plan of Care developed with: Patient TREATMENT INTERVENTIONS: Therapy Diagnosis: Reduced mobility-other Interventions Provided: Re-evaluation;Gait Training (97209) $ Reevaluation (94749) Billed Units: 1 unit Gait Training (52694) Treatment Minutes: 10 1 unit Skilled Intervention(s): Cues for upright stance, safety, rest breaks as needed, proper breathing technique and proper use of wheeled walker. Educated on walking program. Encouraged increased ambulation on unit 4-6x/day with supervision. Total Timed Code Treatment Minutes: 10 Total Treatment Time (minutes): 25 FUNCTIONAL G CODE: PT 6 Clicks Score: 23 (02/02/18924) Mobility: Walking and Moving Around Current Status (G8978): CI (02/02/18924) Mobility: Walking and Moving Around Goal Status (G8979): CH (02/02/18924) Based on clinical assessment and the score on the 6 Clicks Functional Assessment Tool, the G code and corresponding severity modifiers are documented above. SUBJECTIVE: Current Hospital Course: Chart reviewed; 01/19 s/p ?Reoperation second open-heart surgery. ?Aortic valve with root ?debridement and replacement with 26-mm aortic homograft. ?Tricuspid valve repair ?according to Gretta. ?Removal of pacemaker and permanent leads and placement of new ?epicardial leads on RV, LV, and right atrium and implantation of a new pacemaker. 01/28 s/p Right VATS total decortication with evacuation of clot. ? 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) OBJECTIVE: Mini Cog Score: 5 (12/28/17 0835) CURRENT FUNCTIONAL STATUS: Current Functional Mobility Assist Level Additional Information Rolling Modified Independent Supine to Sit Modified Independent Sit to Supine Modified Independent Scooting Modified Independent Sit to Stand Supervision Stand to Sit Supervision Bed to Chair Supervision Bed To Chair Transfer Type: Stand Pivot Bed To Chair Transfer Equipment: Wheeled Walker Toilet/Commode Gait Supervision Gait Device: Wheeled Walker Gait Distance (feet): 400 ft Stairs (NT today) Stairs Device: Rail Number of Stairs: 4 Curb Step Car Transfer General Gait Deviations: Renate decreased;Step length decreased Balance: Static Sitting;Dynamic Sitting;Static Standing;Dynamic Standing Static Sitting Balance: Independent Dynamic Sitting Balance: Independent Static Standing Balance: Supervision Dynamic Standing Balance: Supervision Please see discipline specific clinical documentation flowsheet for complete details for this therapy evaluation/treatment. SIGNATURE: Tianna Cabral PT PATIENT NAME: Frank Rivera DATE: February 02, 2018 TIME: 1:29 PM NUTRITION Observed: 02/02/2018 Status: COMPLETED Source: [place] 9:09 AM [facility] REPOSITORY HNO ID: [id number] Author: Suzanne Marmolejo) Philip Service: Nutrition Therapy Author Type: Traffic Control Officer Type: Nutrition Filed: 02/02/2018 9:12 AM Note Text: NUTRITION THERAPY FOLLOW-UP NOTE SERVICE DATE: 02/02/2018 SERVICE TIME: 800am Anthropometrics: Height: 193 cm (6' 4) Current Weight: Weight: 101.2 kg (223 lb 3.2 oz) Body mass index is 27.17 kg/m?. Loss of lean body mass/visual muscle wasting: no Admitting Diagnosis: C3 NEPHROPATHY IRINA Present Diet Order: Heart Healthy 4 gm Na Is the patient having any pain that is interfering with oral/enteral intake? No Allergies: ALLERGIES Allergen Reactions - Penicillin Hives Reason for Visit: Nutrition screen: LOS > 6 days Nutrient intake assessment: Current intake of meals: 50- 100% Patient concerns/Issues: Patient has a good intake and appetite. Food preferences obtained. Diet was changed 01/29. patient doing well. Will continue to monitor intakes and patients nutritional needs. Nursing Admission Assessment Malnutrition Score Tool: 0 Plan of Care: Recommendation No problems noted at this time. Will screen again within 7 days Discharge Plan: home on heart healthy diet MNT Billing Type: Routine Care/15 min 1 unit SIGNATURE: Suzanne Palacios DTR PATIENT NAME: Frank Rivera DATE: February 02, 2018 TIME: 9:09 AM PAGER: [phone] PROGRESS Observed: 02/02/2018 Status: COMPLETED Source: [place] 8:20 AM [facility] REPOSITORY HNO ID: [id number] Author: Eve Osman (Rt) Service: Radiology Author Type: Spray Rig Operator Type: Progress Notes Filed: 02/02/2018 8:20 AM Note Text: Radiology Service Progress Note PATIENT NAME: Frank Rivera DATE OF SERVICE: February 02, 2018 TIME: 8:20 AM PATIENT IDENTITY VERIFICATION COMPLETED USING TWO (2) METHODS: Patient confirmed name verbally and Date of . PATIENT GENDER DATA: Male PATIENT RELEVANT IMPLANT DATA REVIEWED: Not Applicable RADIOLOGY DEPARTMENT: General X-ray: Exam(s) Completed: Chest X-Ray PERIPHERAL IV DATA: Not applicable SIGNED BY: RT Dawson February 02, 2018 8:20 AM XR CHEST 2V FRONTAL/LAT Observed: 02/02/2018 Status: F Source: [place] 8:19 AM [facility] REPOSITORY * * *Final Report* * * DATE OF EXAM: Feb 02 2018 8:19AM JIX [id number] - XR CHEST 2V FRONTAL/LAT / PROCEDURE REASON: Pleural effusion * * * * Physician Interpretation * * * * EXAMINATION: CHEST RADIOGRAPH (2 VIEW FRONTAL and LATERAL) CLINICAL HISTORY: Pleural effusion, Post-operative / post-procedure assessment, asymptomatic, MQ: XC2_5 Comparison: 02/01/2018 RESULT: Lines, tubes, and devices: Patient is status post median sternotomy. A left 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 ligation clip is present. Right IJ CVC is remain in place. Retained epicardial pacer leads are present. Lungs and pleura: There are bilateral small pleural effusions, partially loculated on the right with bibasilar atelectasis/consolidation. There are few locules of gas overlying the right lateral costophrenic angle. These may be potentially within the pleural space, unchanged. No interstitial edema is noted. Findings are essentially stable from the prior exam. Cardiomediastinal silhouette: The cardiomediastinal silhouette remains enlarged, unchanged. Other: Endplate degenerative changes are present in the thoracic spine. IMPRESSION: Please see body of the report. Loss Prevention Operations Manager: PSCB Transcribe Date/Time: Feb 02 2018 8:51A Dictated by : AISHWARYA LORENZO MD This examination was interpreted and the report reviewed and electronically signed by: AISHWARYA LORENZO MD on Feb 02 2018 8:58AM EST [id number] CBC Collected: 02/02/2018 Status: F Source: [place] 4:20 AM [facility] REPOSITORY TYPE CODE TESTS RESULT OUT OF REFERENCE UNITS RANGE LAB WBC 3.70-11.00 k/uL WBC 4.45 LAB RBC 4.20-6.00 m/uL Low RBC 2.75 LAB HGB 13.0-17.0 g/dL Low Hemoglobin 8.5 LAB HCT 39.0-51.0 % Low Hematocrit 26.8 LAB MCV 80.0-100.0 fL MCV 97.5 LAB MCH 26.0-34.0 pG MCH 30.9 LAB MCHC 30.5-36.0 g/dL MCHC 31.7 LAB RDWCV 11.5-15.0 % RDW-CV High 19.1 LAB PLTCT 150-400 k/uL Low Platelet Count 102 LAB MPV 9.0-12.7 fL MPV 9.5 LAB ABSNUC <0.01 k/uL Absolute nRBC <0.01 Performed By: #### CBC, CMP #### [facility] [address] [place], [place] [address] COMP METABOLIC PANEL Collected: 02/02/2018 Status: F Source: [place] 4:20 AM [facility] REPOSITORY TYPE CODE TESTS RESULT OUT OF REFERENCE UNITS RANGE LAB TP 6.3-8.0 g/dL Protein, Total 6.5 LAB ALB 3.9-4.9 g/dL Low Albumin 2.4 LAB CA 8.5-10.2 mg/dL Low Calcium, Total 8.0 LAB TBIL 0.2-1.3 mg/dL Bilirubin, Total 0.4 LAB ALKP 38-113 U/L Alkaline High Phosphatase 114 LAB AST 14-40 U/L AST 18 LAB GLU 74-99 mg/dL Glucose 76 Result Comment: The [place] Diabetes Association (ADA) provides guidance for cutoff values for fasting glucose and random glucose. The ADA defines fasting as no caloric intake for at least 8 hours. Fas ting plasma glucose results between 100 to 125 mg/dL indicate increased risk for diabetes (prediabetes). Fasting plasma glucose results greater than or equal to 126 mg/dL meet the criteria for diagnosis of diabetes. In the absence of unequivocal hyperglycemia, results should be confirmed by repeat testing. In a patient with classic symptoms of hyperglycemia or hyperglycemic crisis, random plasma glucose results greater than or equal to 200 mg/dL meet the criteria for diagnosis of diabetes. Reference: Standards of Medical Care in Diabetes 2016, [place] Diabetes Association. Diabetes Care. 2016.39(Suppl 1). LAB BUN 9-24 mg/dL BUN 18 LAB CRET 0.73-1.22 mg/dL Creatinine High 4.25 LAB NA 136-144 mmol/L Low Sodium 135 LAB K 3.7-5.1 mmol/L Potassium 4.4 LAB CL 97-105 mmol/L Chloride 100 LAB CO2 22-30 mmol/L CO2 25 LAB AGAP 9-18 mmol/L Anion Gap 10 LAB ALT 10-54 U/L Low ALT 9 LAB GFRAA eGFR- Amer. 17 LAB GFRNAA . eGFR-All Other Races 14 Result Comment: eGFR (Estimated GFR) Units of measure: mL/min/1.73 meters squared eGFR is derived from the reexpressed MDRD Study equation using the following parameters: serum creatinine, age, gender and race. The creatinine assay has been calibrated to be traceable to IDMS. An eGFR <60 mL/min/1.73m2 for >3 months is consistent with chronic kidney disease. Refer to KDOQI guidelines for clinical interpretation. In patients with unstable renal function, e.g. those with acute kidney injury, the eGFR may not accurately reflect actual GFR. Performed By: #### CBC, CMP #### [facility] [address] [place] [address] PROGRESS Observed: 02/01/2018 Status: COMPLETED Source: [place] 6:52 PM [facility] REPOSITORY HNO ID: [id number] Author: Amanda Leal Service: Nursing Author Type: Nurse Practitioner Type: Progress Notes Filed: 02/01/2018 6:55 PM Note Text: [facility] POSTOP PROGRESS NOTE Day of Surgery:01/28/2018 S/P SURGERY: 01/28/2018 INTERVAL EVENTS / PERTINENT ROS: -Endocarditis-Continue Rocephin and Doxycycline per ID -H/o Afib-Eliquis pre-op, Discuss with Dr. Alarcon if Eliquis needs to be resumed. -Moderate Hemothorax-VATS washout 01/28 with thoracic-1 Liter old blood and clots retrieved.CTs dc'd per thoracic -Anemia-improving H/H 8.05/18 today -Hypotension-improving SBP 100's- on Midodrine TID -IRINA- SrCr 6.08 today. IHD done today-1500cc off, Next IHD Thursday Rhythm: PPM Intake/Output Summary (Last 24 hours) at 02/01/18 1854 Last data filed at 02/01/18 1826 Gross per 24 hour Intake 240 ml Output 1530 ml Net -1290 ml EKG: most recent image reviewed TELE: most recent recordings reviewed CXR: most recent image reviewed Echocardiogram: most recent report reviewed PHYSICAL EXAM: BP 103/72 Pulse 80 Temp 36.6 ?C (97.8 ?F) (Oral) Resp 16 Ht 193 cm (6' 4) Wt 103.2 kg (227 lb 9.6 oz) SpO2 93% BMI 27.70 kg/m? Neuro: AANDO x 3 moves all extremities with no apparent weakness CV: no jugular venous distention Heart Exam: RRR without murmur, gallop, or rubs. No ectopy. Resp: clear to auscultation bilaterally and diminished breath sounds. Resp even/unlabored Abd: The abdomen is soft, nontender, nondistended; BS normal; no masses or organomegaly noted. Skin: Skin color, texture, turgor normal, no suspicious rashes or lesions Ext: Trace edema Surgical incisions: Well approximated. No drainage or erythema Chest tube: No Pacer wires: No. HISTORY, ASSESSMENT AND PLAN: Problem Transition of Care Performed With Sharing of Clinical Summary Indication for Surgery: Infective endocarditis of aortic valve Preop LVEF: Normal RVF: mild Postop LVEF: Normal RVF: mild ECG: Paced PMH/PSH: Aortic Stenosis s/p bioprosthetic AVR (27mm St. Richi Trifecta pericardial valve) and RUDY ligation 05/07/17, Atrial fibrillation /p PPM and DCCV in 04/2017 HTN ,Hypothyroidism,, Hx of CVA with residual dysphagia, Hx of Min-En-Y bypass in 1995, Hx of Upper GI bleeds (1997, 2014, 2015) Preop Hosp Course: 62y/o gentleman with atrial fibrillation and SSS s/p PPM, HTN, hypothyroidism, aortic stenosis s/p AVR and RUDY, history of Min-en-Y bypass c/b recurrent GIB, ADRIANNE, B12 deficiency, who presents to [facility] on 12/24/17 with fatigue and shortness of breath who was transferred from OSH with IRINA and renal biopsy concerning for C3 nephropathy. MICU transfer to initiate dialysis secondary to volume overload. CHANDRAKANT 01/01 showed AV vegetation. Airway Difficulty: Grade II - No special instrumentation Pacing Wires: No Chronological List of Surgeries and Major Events (Diagnosis): (Surgeries in bold characters) 01/19/2018: Prosthetic aortic valve explant, Homograft implant as valve/root/ascending aorta and reimplantation of coronary buttons. Explant of right atrial and right ventricular endocardial leads and explant of generator left upper pectoral area. Implant of epicardial leads on right atrium, right ventricule and left ventricle. Pacemaker generator insertion left pre-rectus sheath 01/28/18 Right VATS, washout and hematoma evacuation, decortication A/P of Major Active Problems (excluding routine care and common problems): -S/p reimplantation PPM. Formal device check done 01/25 -Endocarditis. ID following. On Rocephin QD/Doxycycline. RCW SYLVIA catheter intact -Hx of Afib. On eliquis preop. Recent pacer check showed no AT/AF. Discuss resumption of eliquis once hemothorax resolved. -Mod right pleural effusion per cxr. Was tapped on the right with 850cc on 01/22. Chest CT per Dr. Alarcon. CT showed right moderate hemothorax. 01/28 VATS washout done per thoracic team-1 Liter of old blood and clots removed. Thoracic following. CTs removed per thoracic. Stable on RA -IRINA-IHD MWF. RCW permacath intact. IHD done today-1500 off. Plan for IHD Thursday per renal. Nephro continue to follow -Anemia- On Aranesp. Received 1 unit PRBC 01/28. 01/30 H/H 7.6/24.3 with hypotension-1 unit of PRBC to be transfused. Today H/H 8.2/26 -Hypotension-Carvedilol on hold.Started on Midodrine 01/30 -from [place], [place]. PT recs home. No DC date yet. Plans to follow up with home PCP and [facility] [employer] [facility] (not requested). 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 WBC 5.19. afebrile Plan: Continue ABx per ID. Atrial Fibrillation (Hcc) History: Hx post op AF, S/P DCC 06/07. On Apixaban and BB pre-op. Assessment: V paced on telemetry. No AF/AT per recent pacer check Plan: Discontinued Coreg- due to hypotension. Started on Midodrine 01/30 for SBP 80's Home med Apixaban - discuss with CTS regarding AC Htn (Hypertension) History: on hydralazine, lopressor at home Assessment: SBP improving 100's Plan: Coreg on hold. Irina (Acute Kidney Injury) (Hcc) History: started dialysis 12/27/17. permacath dialysis access Assessment: Scr 6.08. Oliguric. Plan: Plan for next session IHD Thursday. Renal following Pain, Postoperative, Acute History: postop Assessment: reports pain is controlled at times. Plan: Optimize pain control w/ scheduled Lidoderm patches and Tylenol, prn Oxycodone/tramadol Discharge Planning Issues -from [place], [place]. PT recs home. No DC date yet. Plans to follow up with home PCP and [facility] [employer] [facility] DAILY STEP DOWN CHECKLIST FOR CATHETER RELATED INFECTION PREVENTION CVC, PICC, Sylvia and/or Permacath present? No Does the patient have a urinary catheter beyond POD 2? No VTE Risk Assessment: Moderate risk VTE Mechanical and/or Pharmacologic Prophylaxis: IPC Device, GCS and Subcutaneous Heparin Labs and medications reviewed in Epic Case discussed in depth with: CTS team with Dr. Alarcon SIGNATURE: Amanda Leal APRN.CNP PATIENT NAME: Frank Rivera DATE: February 01, 2018 TIME: PAGER/CONTACT #: [phone] ETX#[id number] CONSULT PROG Observed: 02/01/2018 Status: COMPLETED Source: [place] 5:19 PM [facility] REPOSITORY HNO ID: [id number] Author: Rohit Olivas Service: Infectious Disease Author Type: Physician Type: Consult Progress Note Filed: 02/01/2018 5:22 PM Note Text: INFECTIOUS DISEASE CONSULT SERVICE PROGRESS NOTE Patient Name: Frank Rivera POD # 13 SURGERY/PROCEDURE: Reoperation second open-heart surgery. Aortic valve with root debridement and replacement with 26-mm aortic homograft. Tricuspid valve repair according to Gretta. Removal of pacemaker and permanent leads and placement of new epicardial leads on RV, LV, and right atrium and implantation of a new pacemaker. POD # 4 SURGERY/PROCEDURE: Right VATS total decortication with evacuation of clot. Interval Events: Course reviewed Chest tubes out Not ambulating very much Eating some Tolerating his antibiotics MEDICATIONS Medications reviewed. Current hospital medications: midodrine 10 mg tab(s) (PROAMITINE) 10 mg ORAL q 8 H oxyCODONE IR 5-10 mg tab(s) (ROXICODONE) 5-10 mg ORAL q 4 H PRN traMADol 50 mg tab(s) (ULTRAM) 50 mg ORAL q 12 H PRN aspirin 162 mg chewable tab(s) 162 mg ORAL DAILY atorvastatin 80 mg tab(s) (LIPITOR) 80 mg ORAL AT BEDTIME 0.9% NaCl 2-10 mL 2-10 mL INTRAVENOUS q 12 H senna-docusate 8.6-50 mg 1 tablet (SENNA-S) 1 tablet ORAL BID polyethylene glycol 3350 17 g packet (MIRALAX, GLYCOLAX) 17 g ORAL DAILY doxycycline hyclate 100 mg cap(s) (VIBRAMYCIN) 100 mg ORAL q 12 H ALPRAZolam 0.25 mg tab(s) (XANAX) 0.25 mg ORAL BID PRN 0.9% NaCl 3-5 mL 3-5 mL INTRAVENOUS q 12 H 0.9% NaCl 10 mL 10 mL INTRAVENOUS q 12 H therapeutic multivitamin 1 tablet tab(s) (THERA VITAMIN) 1 tablet ORAL DAILY WITH BREAKFAST pantoprazole DR 20 mg tab(s) (PROTONIX) 20 mg ORAL DAILY (6 AM) acetaminophen 650 mg tab(s) (TYLENOL) 650 mg ORAL q 4 H PRN bisacodyl 10 mg suppository (DULCOLAX) 10 mg RECTAL DAILY PRN heparin 5,000 Units injection 5,000 Units SUBCUTANEOUS q 12 H Darbepoetin Tereza In Polysorbat 60 mcg injection (ARANESP) 60 mcg SUBCUTANEOUS q MON ondansetron (PF) 4 mg injection (ZOFRAN) 4 mg INTRAVENOUS q 6 H PRN lidocaine 5 % 1 Patch (LIDODERM) 1 Patch TRANSDERMAL DAILY lidocaine patch - REMOVE OTHER AT BEDTIME lidocaine - VERIFY PATCH OTHER q 8 H cefTRIAXone 2 g in D5W 100 mL MB+ (ROCEPHIN) 2 g INTRAVENOUS q 24 H calcium carbonate 1,000 mg chewable tab(s) (TUMS) 1,000 mg ORAL/FEEDING TUBE BID PRN sodium chloride 0.65 % 2 [place] (AYR, OCEAN) 2 [place] EACH NOSTRIL TID PRN cholecalciferol 3,000 Units tab(s) (VITAMIN D3) 3,000 Units ORAL DAILY cyanocobalamin 500 mcg tab(s) (VITAMIN B-12) 500 mcg ORAL DAILY thiamine 100 mg tab(s) (VITAMIN B1) 100 mg ORAL DAILY diphenhydrAMINE 25 mg (BENADRYL) 25 mg ORAL q 6 H PRN tamsulosin ER 0.4 mg cap(s) (FLOMAX) 0.4 mg ORAL DAILY levothyroxine 200 mcg tab(s) (SYNTHROID) 200 mcg ORAL BEFORE BREAKFAST DAILY Examination: BP 108/69 Pulse 79 Temp 36.8 ?C (98.2 ?F) (Oral) Resp 16 Ht 193 cm (6' 4) Wt 103.2 kg (227 lb 9.6 oz) SpO2 95% BMI 27.70 kg/m? Temp (24hrs), Av.8 ?C (98.2 ?F), Min:36.7 ?C (98 ?F), Max:36.9 ?C (98.5 ?F) General appearance: Up in a chair at the site of the bed, family visiting Skin: no rash Head: neg Eyes: anicteric Oropharynx: neg Neck: Negative Back: not examined Lungs: CTA Heart: rrnl, S1 and S2 Abdomen: soft Extremities: Bilateral lower extremity edema Musculoskeletal: Negative Peripheral pulses: radial pulses palpable Tunneled dialysis catheter and Sylvia catheter in the right chest Sternotomy intact Exam unchanged as compared with 01/22 other than as edited above. Lab, Microbiology and Imaging Data: Personally reviewed imaging studies, laboratory results, and microbiology results. ASSESSMENT: 62-year-old with multiple medical problems including but not limited to atrial fibrillation, hypertension, and aortic stenosis status post aortic valve replacement in April 2017 with a permanent pacemaker placed shortly thereafter was transferred to our hospital on 12/24 for further evaluation of an acute kidney injury. He initially presented to an outside hospital on 12/19 for further evaluation of a new anemia and renal failure after presenting to his primary care physician with fatigue and shortness of breath. He was treated empirically with prednisone for a glomerular nephritis and transferred. 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 Positive serologies for antineutrophil cytoplasmic antibodies and myeloperoxidase. He is requiring renal replacement therapy. Notable aspects of his workup thus far from infectious disease perspective has included: 2 blood cultures 12/25-no growth to date Bartonella serologies-IgG for Bartonella henselae greater than 1:1024, IgG for Bartonella amato 1:1024 Transesophageal echocardiogram 01/01-2-3+ TR, 3+ AI, thickening of the aorto-mitral curtain and posterior LA wall suggestive of either hematoma or active infection, small mobile echodensity within the RA-vegetation versus thrombus CT chest cardiac 01/07-moderate diffuse leaflet calcification CT brain 01/07-no acute findings CT abdomen and pelvis 01/06-evolving large rectus sheath hematoma CT abdomen pelvis 01/17-rectus hematoma was stable craniocaudad dimensions but slight difference in axial configuration 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 Interestingly, despite his titers he has no obvious epidemiological link to this genus. In speaking with him and in reviewing his records there was no suspicion for endocarditis of the time of his operation in April. He continues to require renal replacement therapy. The patient was taken to the operating room on 01/19 and underwent SURGERY/PROCEDURE: Reoperation second open-heart surgery. Aortic valve with root debridement and replacement with 26-mm aortic homograft. Tricuspid valve repair according to Gretta. Removal of pacemaker and permanent leads and placement of new epicardial leads on RV, LV, and right atrium and implantation of a new pacemaker. . Operative findings: Vegetations on all 3 leaflets, partially dehisced valve, several penetrations into the annulus posteriorly under the left non-commissure and under the right non-commissure Operative cultures: No growth to date Histopathology: Specimen aortic valve-acute inflammation and focal calcification, cocci seen on GMS PCR: Bartonella species His postoperative course was notable for the development of a right hemothorax which required return to the operating room on 01/28 for VATS and hematoma evacuation. He is making gradual progress postoperatively. He is tolerating his antibiotics. RECOMMENDATIONS: Continue doxycycline 100 mg po every 12 hours Continue ceftriaxone 2 g IV every 24 hours At this time expect his discharge regimen to be- Ceftriaxone 2 g IV every 24 hours Doxycycline 100 mg by mouth every 12 hours Treat until 03/02/18. COPAT rx electronically signed and available in the outpatient encounter section of [facility], updated February 01, 2018. I can see him back in 02/24 at 13:00. Assessment and plan unchanged as compared with 01/22 except as edited above. Monitoring for ongoing therapeutic and potential untoward effect of antibiotic therapy. Following Signature: Rohit Olivas MD Pager: [phone] CONSULT PROG Observed: 02/01/2018 Status: COMPLETED Source: [place] 4:54 PM [facility] REPOSITORY O ID: [id number] Author: Ray Conde MD Service: Nephrology Author Type: Physician Type: Consult Progress Note Filed: 02/01/2018 4:57 PM Note Text: CONSULT PROGRESS NOTE NEPHROLOGY SERVICE SERVICE DATE: 02/01/2018 SERVICE TIME: 4:54 PM Subjective INTERVAL HISTORY: No acute events reported. Patient is status post right VATS washout and decortication on January 28 MEDICATIONS: Current hospital medications: midodrine 10 mg tab(s) (PROAMITINE) 10 mg ORAL q 8 H oxyCODONE IR 5-10 mg tab(s) (ROXICODONE) 5-10 mg ORAL q 4 H PRN traMADol 50 mg tab(s) (ULTRAM) 50 mg ORAL q 12 H PRN aspirin 162 mg chewable tab(s) 162 mg ORAL DAILY atorvastatin 80 mg tab(s) (LIPITOR) 80 mg ORAL AT BEDTIME 0.9% NaCl 2-10 mL 2-10 mL INTRAVENOUS q 12 H senna-docusate 8.6-50 mg 1 tablet (SENNA-S) 1 tablet ORAL BID polyethylene glycol 3350 17 g packet (MIRALAX, GLYCOLAX) 17 g ORAL DAILY doxycycline hyclate 100 mg cap(s) (VIBRAMYCIN) 100 mg ORAL q 12 H ALPRAZolam 0.25 mg tab(s) (XANAX) 0.25 mg ORAL BID PRN 0.9% NaCl 3-5 mL 3-5 mL INTRAVENOUS q 12 H 0.9% NaCl 10 mL 10 mL INTRAVENOUS q 12 H therapeutic multivitamin 1 tablet tab(s) (THERA VITAMIN) 1 tablet ORAL DAILY WITH BREAKFAST pantoprazole DR 20 mg tab(s) (PROTONIX) 20 mg ORAL DAILY (6 AM) acetaminophen 650 mg tab(s) (TYLENOL) 650 mg ORAL q 4 H PRN bisacodyl 10 mg suppository (DULCOLAX) 10 mg RECTAL DAILY PRN heparin 5,000 Units injection 5,000 Units SUBCUTANEOUS q 12 H Darbepoetin Tereza In Polysorbat 60 mcg injection (ARANESP) 60 mcg SUBCUTANEOUS q MON ondansetron (PF) 4 mg injection (ZOFRAN) 4 mg INTRAVENOUS q 6 H PRN lidocaine 5 % 1 Patch (LIDODERM) 1 Patch TRANSDERMAL DAILY lidocaine patch - REMOVE OTHER AT BEDTIME lidocaine - VERIFY PATCH OTHER q 8 H cefTRIAXone 2 g in D5W 100 mL MB+ (ROCEPHIN) 2 g INTRAVENOUS q 24 H calcium carbonate 1,000 mg chewable tab(s) (TUMS) 1,000 mg ORAL/FEEDING TUBE BID PRN sodium chloride 0.65 % 2 [place] (AYR, OCEAN) 2 [place] EACH NOSTRIL TID PRN cholecalciferol 3,000 Units tab(s) (VITAMIN D3) 3,000 Units ORAL DAILY cyanocobalamin 500 mcg tab(s) (VITAMIN B-12) 500 mcg ORAL DAILY thiamine 100 mg tab(s) (VITAMIN B1) 100 mg ORAL DAILY diphenhydrAMINE 25 mg (BENADRYL) 25 mg ORAL q 6 H PRN tamsulosin ER 0.4 mg cap(s) (FLOMAX) 0.4 mg ORAL DAILY levothyroxine 200 mcg tab(s) (SYNTHROID) 200 mcg ORAL BEFORE BREAKFAST DAILY Objective PHYSICAL EXAM: BP 108/69 Pulse 79 Temp 36.8 ?C (98.2 ?F) (Oral) Resp 16 Ht 193 cm (6' 4) Wt 103.2 kg (227 lb 9.6 oz) SpO2 95% BMI 27.70 kg/m? Intake/Output Summary (Last 24 hours) at 02/01/18 1654 Last data filed at 02/01/18 1400 Gross per 24 hour Intake 60 ml Output 1530 ml Net -1470 ml Constitutional: No acute distress and Responsive Neck: Trachea midline No jugular venous distension Cardiovascular: Heart sounds: Rate: Normal Edema present: 1+ Respiratory: Normal respiratory effort. Lungs clear bilaterally. Abdomen: Soft, non-tender, non-distended. Normal bowel sounds. No hepatosplenomegaly. Psychiatric: Alert and oriented x self, place, time, and setting Normal mood/affect Vascular Access: Hemodialysis catheter location: Right Tunneled internal jugular. Exit site demonstrates: normal findings DATA: Diagnostic tests reviewed for today's visit: Most recent labs Recent Labs 02/01/18 0630 01/31/18 0532 01/30/18 0540 01/29/18 0330 01/28/18 0310 01/27/18 0341 NA 133* 134* 134* 136 132* 132* K 4.9 4.9 5.0 4.6 4.5 4.7 CHLOR 98 99 98 102 98 94* CO2 24 24 25 23 27 26 BUN 30* 23 16 17 13 18 CREAT 6.08* 5.31* 4.00* 4.65* 3.81* 4.51* GLUC 67* 73* 73* 69* 79 72* ANION 11 11 11 11 7* 12 CA 8.5 8.2* 8.1* 7.8* 8.1* 8.5 P -- -- -- -- -- 4.9* Recent Labs 02/01/18 0630 01/31/18 0532 01/30/18 0540 WBC 5.19 4.02 3.65* HB 8.2* 8.3* 7.6* HCT 26.0* 27.2* 24.3* PLT 103* 102* 91* Assessment/Plan 62 year old male with PMH including A-fibb, s/p AVR, history of CVA, Fe deficiency anemia and hemolytic anemia presented to [facility] as a transfer from OSH on 12/24. ?Initial presentation to OSH was due to suspected GI bleed. Patient was transferred to [facility] upon worsening of renal function. ?S/p MVR 01/19/18. ? Per Dr. Candelario's note from 12/30/17 Renal biopsy slides from outside hospital reviewed today with Dr. 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 No need for steroids. Need to get ID consult and PCR for Bartonella. Consider CHANDRAKANT. The patient may have infected pacer wires. PLAN 1. No signs of any renal recovery at this time. He does remain dialysis dependent. 2. We'll plan for his next treatment on Thursday with continued volume removal to improve his overall volume status.. Ray Conde MD, ARVIN Moe Endowed Chair in Nephrology and Hypertension Research Cyber Systems Administratorgear and spline grinder [facility] [place] SIGNATURE: Ray Conde MD PATIENT NAME: Frank Rivera DATE: February 01, 2018 TIME: 4:54 PM PAGER: [phone] THERAPY NT Observed: 02/01/2018 Status: COMPLETED Source: [place] 4:21 PM [facility] REPOS[facility] HNO ID: [id number] Author: Cecilia Watson/Hanny Gonzales Service: Occupational Therapy Author Type: Occupational Therapist Type: Therapy (PT/OT/Speech/Resp) Filed: 02/01/2018 4:21 PM Note Text: OCCUPATIONAL THERAPY MISSED VISIT SERVICE DATE: 02/01/2018 SERVICE TIME: 0838 to 0838 ROOM: [place] [address] Attempted Treatment. Patient not seen due to Test/Procedure, patient off floor. Will follow up as able. SIGNATURE: Cecilia Gonzales OT/Jenni PATIENT NAME: rFank Rivera DATE: February 01, 2018 TIME: 4:21 PM THERAPY NT Observed: 02/01/2018 Status: COMPLETED Source: [place] 2:40 PM [facility] REPOSITORY HNO ID: [id number] Author: Tianna Cabral Service: Physical Therapy Author Type: Physical Therapist Type: Therapy (PT/OT/Speech/Resp) Filed: 02/01/2018 4:19 PM Note Text: PHYSICAL THERAPY MISSED VISIT SERVICE DATE: 02/01/2018 SERVICE TIME: 1440 to 1440 ROOM: [place] [address] Attempted Treatment. Patient not seen due to Bathing. SIGNATURE: Tianna Cabral PT PATIENT NAME: Frank Rivera DATE: February 01, 2018 TIME: 4:18 PM PROGRESS Observed: 02/01/2018 Status: COMPLETED Source: [place] 2:35 PM [facility] REPOSITORY HNO ID: [id number] Author: Gopal Jain Rt Service: (none) Author Type: (none) Type: Progress Notes Filed: 02/01/2018 2:36 PM Note Text: Radiology Service Progress Note PATIENT NAME: Frank Rivera DATE OF SERVICE: February 01, 2018 TIME: 2:35 PM PATIENT IDENTITY VERIFICATION COMPLETED USING TWO (2) METHODS: Patient confirmed name verbally and Date of . PATIENT GENDER DATA: Male PATIENT RELEVANT IMPLANT DATA REVIEWED: Not Applicable RADIOLOGY DEPARTMENT: General X-ray: Exam(s) Completed: Chest X-Ray PERIPHERAL IV DATA: Not applicable SIGNED BY: Gopal Morfin February 01, 2018 2:35 PM XR CHEST 2V FRONTAL/LAT Observed: 02/01/2018 Status: F Source: [place] 2:35 PM [facility] REPOSITORY * * *Final Report* * * DATE OF EXAM: Feb 01 2018 2:35PM JIX [id number] - XR CHEST 2V FRONTAL/LAT / PROCEDURE REASON: Pleural effusion * * * * Physician Interpretation * * * * EXAMINATION: CHEST RADIOGRAPH (2 VIEW FRONTAL and LATERAL) CLINICAL HISTORY: Pleural effusion, Post-operative / post-procedure assessment, asymptomatic, MQ: XC2_5 Comparison: 01/31/2018 RESULT: Lines, tubes, and devices: Right IJ catheters remain in place. Removal of right pleural drainage catheter.. Lungs and pleura: Small loculated right hydropneumothorax is not significantly changed. Small partially loculated left pleural effusion remains with a slight decrease in size. Atelectatic changes again seen at the bases with mild improvement on the left. Slight improvement of mild perihilar interstitial edema or less likely inflammation. No pneumothorax.. Cardiomediastinal silhouette: Unchanged Other: Median sternotomy IMPRESSION: As above Loss Prevention Operations Manager: IDA Transcribe Date/Time: Feb 01 2018 3:36P Dictated by : ARLEN AGARWAL MD This examination was interpreted and the report reviewed and electronically signed by: ARLEN AGARWAL MD on Feb 01 2018 3:39PM EST [id number] MANAGEM Observed: 02/01/2018 Status: COMPLETED Source: [place] 2:23 PM [facility] REPOSITORY HNO ID: [id number] Author: Najma (Rn) DIEUDONNE Villasenor Service: Case Management Author Type: Registered Nurse Type: Care Mgt Progress Note Filed: 02/01/2018 2:31 PM Note Text: CARE MANAGEMENT PROGRESS NOTE SERVICE DATE: 02/01/2018 SERVICE TIME: 2:23 PM LOS: 39 days FREEDOM OF CHOICE GIVEN: Yes mother Preference: [facility] Needs Prior to Discharge: IV Antibiotics;Home Care Order;Accepting Facility;Facility or Agency Choices Procedure Needed: outpatient dialysis EMR reveiwed. Attempted to speak to pt at bedside, pt deferred CM to speak with his mother. Spoke with mother about discharge planning. Discussed need for HIP for IV abx. Family familiar with [facility]. Mother remains hopeful pt can discharge to rehab. Discussed PT most recent recs of home with no skilled need. Mother hopeful pt may meet criteria since he's s/p 01/28 Right VATS, washout and hematoma evacuation, decortication. Discussed criteria needed for insurance authorization. PT continues to follow, pt not seen today /2 dialysis. Will await current PT recs. COPAT will need updated prior to dc (currently dated 01/22/2018). Dialysis has been established through: [facility] MWF, chair time 1200 PM. Family will transport pt to and from dialysis. CM will continue to follow for discharge planning needs. SIGNATURE: Najma Villasenor RN PATIENT NAME: Frank Rivera DATE: February 01, 2018 TIME: 2:23 PM PAGER/CONTACT #: [email or web address] Observed: 02/01/2018 Status: COMPLETED Source: [place] 10:03 AM [facility] REPOSITORY [facility] ID: [id number] Author: Mark Jacobs Service: Thoracic Surgery Author Type: Resident Type: Consults Filed: 02/01/2018 10:04 AM Note Text: [facility] THORACIC SURGERY CONSULT PROGRESS NOTE Frank Rivera [id number] PRIMARY SERVICE: Hvi Card Surg B HOSPITAL DAY: # 39 INTERVAL HISTORY No acute events overnight R darryn with 15 out in 24 hours. Vitals stable. On 2-3 L NC. PHYSICAL EXAM BP 123/81 Pulse 79 Temp 36.7 ?C (98 ?F) (Oral) Resp 15 Ht 193 cm (6' 4) Wt 103.2 kg (227 lb 9.6 oz) SpO2 93% BMI 27.70 kg/m? Constitutional: no acute distress Resp: clear bilaterally Cardiovascular: regular rate and rhythm GI: soft, non-tender to palpation Neurological/Psychiatric: oriented, no gross focal neurologic deficits DATA Recent Labs 02/01/18 0630 01/31/18 0532 01/30/18 0540 WBC 5.19 4.02 3.65* HB 8.2* 8.3* 7.6* HCT 26.0* 27.2* 24.3* PLT 103* 102* 91* Recent Labs 02/01/18 0630 01/31/18 0532 01/30/18 0540 NA 133* 134* 134* K 4.9 4.9 5.0 CO2 24 24 25 BUN 30* 23 16 CREAT 6.08* 5.31* 4.00* GLUC 67* 73* 73* IMAGING I personally reviewed: CXR ASSESSMENT AND PLAN 62 year old male with atrial fibrillation (previously on apixaban), hypertension, prior CVA with residual dysphagia, and h/o RYGB in 1995 c/b recurrent GI bleeds, who is now s/p redo sternotomy, AVR with homograft, TV repair, and placement of epicardial leads for prosthetic valve endocarditis on 01/19, now with R pleural effusion / hemothorax. SP R VATS washout / decortication on 01/28 - will remove right darryn today - recommend GI consult to r/o ongoing GI bleed, monitor H/H - out of bed as tolerated, bronchopulmonary hygiene - Thoracic Surgery will sign off, please call with questions Mark Jacobs MD Cardiothoracic Surgery PGY2 Thoracic Consult Pager: [phone] THERAPY NT Observed: 02/01/2018 Status: COMPLETED Source: [place] 9:08 AM [facility] REPOSITORY HNO ID: [id number] Author: Tianna Cabral Service: Physical Therapy Author Type: Physical Therapist Type: Therapy (PT/OT/Speech/Resp) Filed: 02/01/2018 12:31 PM Note Text: PHYSICAL THERAPY MISSED VISIT SERVICE DATE: 02/01/2018 SERVICE TIME: 907 to 09 ROOM: [place] [address] Attempted Treatment. Patient not seen due to Test/Procedure. Dialysis. SIGNATURE: Tianna Carbal PT PATIENT NAME: Frank Rivera DATE: February 01, 2018 TIME: 12:31 PM CBC Collected: 02/01/2018 Status: F Source: [place] 6:30 AM [facility] REPOSITORY TYPE CODE TESTS RESULT OUT OF REFERENCE UNITS RANGE LAB WBC 3.70-11.00 k/uL WBC 5.19 LAB RBC 4.20-6.00 m/uL Low RBC 2.66 LAB HGB 13.0-17.0 g/dL Low Hemoglobin 8.2 LAB HCT 39.0-51.0 % Low Hematocrit 26.0 LAB MCV 80.0-100.0 fL MCV 97.7 LAB MCH 26.0-34.0 pG MCH 30.8 LAB MCHC 30.5-36.0 g/dL MCHC 31.5 LAB RDWCV 11.5-15.0 % RDW-CV High 18.9 LAB PLTCT 150-400 k/uL Low Platelet Count 103 LAB MPV 9.0-12.7 fL MPV 9.5 LAB ABSNUC <0.01 k/uL Absolute nRBC <0.01 Performed By: #### CBC, CMP #### [facility] [address] [place], [place] [address] COMP METABOLIC PANEL Collected: 02/01/2018 Status: F Source: PLAN[place] 6:30 AM [facility] REPOSITORY TYPE CODE TESTS RESULT OUT OF REFERENCE UNITS RANGE LAB TP 6.3-8.0 g/dL Protein, Total 6.5 LAB ALB 3.9-4.9 g/dL Low Albumin 2.1 LAB CA 8.5-10.2 mg/dL Calcium, Total 8.5 LAB TBIL 0.2-1.3 mg/dL Bilirubin, Total 0.4 LAB ALKP 38-113 U/L Alkaline Phosphatase 110 LAB AST 14-40 U/L AST 17 LAB GLU 74-99 mg/dL Low Glucose 67 Result Comment: The [place] [employer] (ADA) provides guidance for cutoff values for fasting glucose and random glucose. The ADA defines fasting as no caloric intake for at least 8 hours. Fas ting plasma glucose results between 100 to 125 mg/dL indicate increased risk for diabetes (prediabetes). Fasting plasma glucose results greater than or equal to 126 mg/dL meet the criteria for diagnosis of diabetes. In the absence of unequivocal hyperglycemia, results should be confirmed by repeat testing. In a patient with classic symptoms of hyperglycemia or hyperglycemic crisis, random plasma glucose results greater than or equal to 200 mg/dL meet the criteria for diagnosis of diabetes. Reference: Standards of Medical Care in Diabetes 2016, [place] [employer] Association. Diabetes Care. 2016.39(Suppl 1). LAB BUN 9-24 mg/dL BUN High 30 LAB CRET 0.73-1.22 mg/dL Creatinine High 6.08 LAB NA 136-144 mmol/L Low Sodium 133 LAB K 3.7-5.1 mmol/L Potassium 4.9 LAB CL 97-105 mmol/L Chloride 98 LAB CO2 22-30 mmol/L CO2 24 LAB AGAP 9-18 mmol/L Anion Gap 11 LAB ALT 10-54 U/L Low ALT 7 LAB GFRAA eGFR- Amer. 11 LAB GFRNAA . eGFR-All Other Races 9 Result Comment: eGFR (Estimated GFR) Units of measure: mL/min/1.73 meters squared eGFR is derived from the reexpressed MDRD Study equation using the following parameters: serum creatinine, age, gender and race. The creatinine assay has been calibrated to be traceable to IDMS. An eGFR <60 mL/min/1.73m2 for >3 months is consistent with chronic kidney disease. Refer to KDOQI guidelines for clinical interpretation. In patients with unstable renal function, e.g. those with acute kidney injury, the eGFR may not accurately reflect actual GFR. Performed By: #### CBC, CMP #### [facility] [address] [place], [place] [address] XR CHEST 2V FRONTAL/LAT Observed: 01/31/2018 Status: F Source: PLANO 4:08 PM [facility] REPOSITORY * * *Final Report* * * DATE OF EXAM: Jan 31 2018 4:08PM JIX [id number] - XR CHEST 2V FRONTAL/LAT / PROCEDURE REASON: Pleural effusion * * * * Physician Interpretation * * * * EXAMINATION: CHEST RADIOGRAPH (2 VIEW FRONTAL and LATERAL) CLINICAL HISTORY: Pleural effusion, Post-operative / post-procedure assessment, asymptomatic, Redo sternotomy (2nd OHS, 1st redo) Prosthetic aortic valve explant Homograft implant as valve/root/ascending aorta and reimplantation of coronary buttons ; Tricuspid valve repair - Gretta stitch ? Explant of right atrial and right ventricular endocardial leads and explant of generator left upper pectoral area ? Implant of epicardial leads on right atrium, right ventricule and left ventricle Pacemaker generator insertion left pre-rectus sheath ?Right VATS, washout and hematoma evacuation, decortication MQ: XC2_5 Comparison: 1 day prior RESULT: Lines, tubes, and devices: Interval removal of right apical chest tube. More inferiorly located right pleural tube, right IJ venous catheters x 2 redemonstrated. Inferior approach epicardial leads overlying the right atrium and ventricle and left ventricle redemonstrated. Patient is status post redo median sternotomy and left 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 ligation clip placement , homograft implant of ascending aorta and aortic valve, tricuspid valve repair. Lungs and pleura: Small bilateral pleural effusions (with component of multiloculated right hydropneumothorax suspected with small locules of gas). Left pleural effusion may be slightly decreasing in volume. Bibasilar atelectatic opacities redemonstrated without improvement. Interstitial opacities suggestive of edema redemonstrated. No large pneumothorax. Cardiomediastinal silhouette: Stable, enlarged cardiomediastinal silhouette. Other: Mild degenerative changes of the spine. Upper extremities obscure part of the anterior thorax on the lateral view. IMPRESSION: See body of the report Loss Prevention Operations Manager: IDA Transcribe Date/Time: Jan 31 2018 6:13P Dictated by : YULISSA FONTAINE MD This examination was interpreted and the report reviewed and electronically signed by: YULISSA FONTAINE MD on Jan 31 2018 6:21PM EST [id number] PROGRESS Observed: 01/31/2018 Status: COMPLETED Source: PLANO 4:05 PM [facility] REPOSITORY HNO ID: [id number] Author: Eve Weller (Rt) Service: Radiology Author Type: Spray Rig Operator Type: Progress Notes Filed: 01/31/2018 4:06 PM Note Text: Radiology Service Progress Note PATIENT NAME: Frank Rivera DATE OF SERVICE: January 31, 2018 TIME: 4:05 PM PATIENT IDENTITY VERIFICATION COMPLETED USING TWO (2) METHODS: Patient confirmed name verbally and ID band matches.. PATIENT GENDER DATA: Male PATIENT RELEVANT IMPLANT DATA REVIEWED: Yes RADIOLOGY DEPARTMENT: General X-ray: Exam(s) Completed: Chest X-Ray PERIPHERAL IV DATA: Not applicable SIGNED BY: RT Nithin January 31, 2018 4:05 PM NURSING PROG Observed: 01/31/2018 Status: COMPLETED Source: PLANO 2:06 PM [facility] REPOSITORY HNO ID: [id number] Author: Chuck MarieRn) DIEUDONNE Schroeder Service: Nursing Author Type: Registered Nurse Type: Nursing Progress Note Filed: 01/31/2018 2:12 PM Note Text: Patient observed having nosebleed and coughing up bloody mucous. Pt denies pain. Dr. Shipman notified and aware. Will continue to monitor PLAN OF CARE Observed: 01/31/2018 Status: COMPLETED Source: PLANO 12:17 PM [facility] REPOSITORY HNO ID: [id number] Author: Mark Jacobs Service: Thoracic Surgery Author Type: Resident Type: Plan of Care Filed: 01/31/2018 12:17 PM Note Text: THORACIC SURGERY NOTE The left sided chest tube was examined and no air leak was found. The chest tube was removed without difficulty and an occlusive dressing was placed over the incision site. The patient tolerated the procedure well and a post-pull chest X-Ray was ordered. Mark Jacobs MD Pager: [phone] January 31, 2018 12:17 PM PROGRESS Observed: 01/31/2018 Status: COMPLETED Source: PLANO 11:13 AM [facility] REPOSITORY HNO ID: [id number] Author: Lolis Cox (Fel) Service: Cardiac Surgery Author Type: Fellow Type: Progress Notes Filed: 01/31/2018 11:14 AM Note Text: [place] AVR homograft 12 days ago VATs pod3 Paced BP good on 1 L sat 96 Labs ok Cr 5.3 k 4.9 CTR1 60 CTR2 20 , Thoracic team following Will keep drains today , for dialysis tomorrow Lolis Cox MD CTS fellow CONSULT Observed: 01/31/2018 Status: COMPLETED Source: PLANO 10:35 AM [facility] REPOSITORY HNO ID: [id number] Author: Mark Jacobs Service: Thoracic Surgery Author Type: Resident Type: Consults Filed: 01/31/2018 10:37 AM Note Text: [facility] THORACIC SURGERY CONSULT PROGRESS NOTE Frank Rivera [id number] PRIMARY SERVICE: Hvi Card Surg B HOSPITAL DAY: # 38 INTERVAL HISTORY No acute events overnight SP RBC transfusion yesterday, H/H responded R CT / darryn with 60 / 22 out in 24 hours. Vitals stable. On 2-3 L NC. PHYSICAL EXAM BP 101/63 Pulse 79 Temp 36.4 ?C (97.6 ?F) (Oral) Resp 20 Ht 193 cm (6' 4) Wt 103.4 kg (228 lb) SpO2 96% BMI 27.75 kg/m? Constitutional: no acute distress Resp: clear bilaterally Cardiovascular: regular rate and rhythm GI: soft, non-tender to palpation Neurological/Psychiatric: oriented, no gross focal neurologic deficits DATA Recent Labs 01/31/18 0532 01/30/18 0540 01/29/18 0330 WBC 4.02 3.65* 4.02 HB 8.3* 7.6* 8.1* HCT 27.2* 24.3* 25.2* PLT 102* 91* 98* Recent Labs 01/31/18 0532 01/30/18 0540 01/29/18 0330 NA 134* 134* 136 K 4.9 5.0 4.6 CO2 24 25 23 BUN 23 16 17 CREAT 5.31* 4.00* 4.65* GLUC 73* 73* 69* IMAGING I personally reviewed: CXR ASSESSMENT AND PLAN 62 year old male with atrial fibrillation (previously on apixaban), hypertension, prior CVA with residual dysphagia, and h/o RYGB in 1995 c/b recurrent GI bleeds, who is now s/p redo sternotomy, AVR with homograft, TV repair, and placement of epicardial leads for prosthetic valve endocarditis on 01/19, now with R pleural effusion / hemothorax. SP R VATS washout / decortication on 01/28 - will remove right chest tube today and place remaining darryn drain to bulb suction - daily chest XR at 4 AM - recommend GI consult to r/o ongoing GI bleed - out of bed as tolerated, bronchopulmonary hygiene Mark Jacobs MD Cardiothoracic Surgery PGY2 Thoracic Consult Pager: [phone] ECG COMPLETE W Observed: 01/31/2018 Status: F Source: PLANO INTERPRETATION 7:18 AM [facility] REPOSITORY NAME : FRANK RIVERA PID : [id number] : 1955 Gender : Male Race : ORD : [id number] Procedure Date : Jan 31 2018 07:18:48 Edit Date : Feb 08 2018 16:00:20 Diagnosis:AV DUAL-PACED RHYTHM WITH OCCASIONAL PREMATURE VENTRICULAR COMPLEXES ABNORMAL ECG Confirmed by GOPAL STAPLETON M.D. ([id number]) on 02/08/2018 4:00:16 PM Ventricular Rate : 81 BPM Atrial Rate : 64 BPM P-R Interval : 176 ms QRS Duration : 164 ms Q-T Interval : 462 ms QTC Calculation(Bezet) : 536 ms R Killbuck : -78 degrees T Killbuck : 90 degrees Test Reason : C3 NEPHROPATHY Location : 351 : J51 [id number] Overread By : GOPAL STAPLETON M.D. Edited By : GOPAL STAPLETON M.D. Referred By : , Acquired by : MARILEE TYLER CBC Collected: 01/31/2018 Status: F Source: PLANO 5:32 AM [facility] REPOSITORY TYPE CODE TESTS RESULT OUT OF REFERENCE UNITS RANGE LAB WBC 3.70-11.00 k/uL WBC 4.02 LAB RBC 4.20-6.00 m/uL Low RBC 2.77 LAB HGB 13.0-17.0 g/dL Low Hemoglobin 8.3 LAB HCT 39.0-51.0 % Low Hematocrit 27.2 LAB MCV 80.0-100.0 fL MCV 98.2 LAB MCH 26.0-34.0 pG MCH 30.0 LAB MCHC 30.5-36.0 g/dL MCHC 30.5 LAB RDWCV 11.5-15.0 % RDW-CV High 18.7 LAB PLTCT 150-400 k/uL Low Platelet Count 102 LAB MPV 9.0-12.7 fL MPV 9.3 LAB ABSNUC <0.01 k/uL Absolute nRBC <0.01 Performed By: #### CBC, CMP #### [facility] [address] [place], [place] [address] COMP METABOLIC PANEL Collected: 01/31/2018 Status: F Source: PLANO 5:32 AM [facility] REPOSITORY TYPE CODE TESTS RESULT OUT OF REFERENCE UNITS RANGE LAB TP 6.3-8.0 g/dL Low Protein, Total 6.2 LAB ALB 3.9-4.9 g/dL Low Albumin 2.3 LAB CA 8.5-10.2 mg/dL Low Calcium, Total 8.2 LAB TBIL 0.2-1.3 mg/dL Bilirubin, Total 0.4 LAB ALKP 38-113 U/L Alkaline Phosphatase 108 LAB AST 14-40 U/L AST 19 LAB GLU 74-99 mg/dL Low Glucose 73 Result Comment: The [place] Diabetes Association (ADA) provides guidance for cutoff values for fasting glucose and random glucose. The ADA defines fasting as no caloric intake for at least 8 hours. Fas ting plasma glucose results between 100 to 125 mg/dL indicate increased risk for diabetes (prediabetes). Fasting plasma glucose results greater than or equal to 126 mg/dL meet the criteria for diagnosis of diabetes. In the absence of unequivocal hyperglycemia, results should be confirmed by repeat testing. In a patient with classic symptoms of hyperglycemia or hyperglycemic crisis, random plasma glucose results greater than or equal to 200 mg/dL meet the criteria for diagnosis of diabetes. Reference: Standards of Medical Care in Diabetes 2016, [place] Diabetes Association. Diabetes Care. 2016.39(Suppl 1). LAB BUN 9-24 mg/dL BUN 23 LAB CRET 0.73-1.22 mg/dL Creatinine High 5.31 Result Comment: Result rechecked. LAB NA 136-144 mmol/L Sodium Low 134 LAB K 3.7-5.1 mmol/L Potassium 4.9 LAB CL 97-105 mmol/L Chloride 99 LAB CO2 22-30 mmol/L CO2 24 LAB AGAP 9-18 mmol/L Anion Gap 11 LAB ALT 10-54 U/L ALT Low 9 LAB GFRAA eGFR- Amer. 13 LAB GFRNAA . eGFR-All Other Races 11 Result Comment: eGFR (Estimated GFR) Units of measure: mL/min/1.73 meters squared eGFR is derived from the reexpressed MDRD Study equation using the following parameters: serum creatinine, age, gender and race. The creatinine assay has been calibrated to be traceable to IDMS. An eGFR <60 mL/min/1.73m2 for >3 months is consistent with chronic kidney disease. Refer to KDOQI guidelines for clinical interpretation. In patients with unstable renal function, e.g. those with acute kidney injury, the eGFR may not accurately reflect actual GFR. Performed By: #### CBC, CMP #### [facility] [employer] [address] [place], [place] [address] TYPE AND SCREEN Collected: 01/31/2018 Status: F Source: PLANO 5:32 AM [facility] REPOSITORY TYPE CODE TESTS RESULT OUT OF REFERENCE UNITS RANGE LAB %ABR A ABO/RH(D) POSITIVE LAB % Antibody NEG Screen Performed By: #### TSCR #### [facility] [employer] [facility] [address] [place], [place] [address] NURSING PROG Observed: 01/31/2018 Status: COMPLETED Source: PLANO 3:23 AM [facility] REPOSITORY HNO ID: [id number] Author: Hoda (Rn) DIEUDONNE Jara Service: (none) Author Type: Registered Nurse Type: Nursing Progress Note Filed: 01/31/2018 4:21 AM Note Text: Nursing Progress Note Patient Name: Frank Rivera Patient Location: [address] Daily Note: Pts chest tube junction came untaped and air leaked out. CTS salvationist paged x2, awaiting orders, retaped, pt asymptomatic, no air leak in chest tube chamber, breath sounds bilateral, will continue to monitor and re-assess, no orders placed. This note was completed by: Hoda Jara RN PROGRESS Observed: 01/30/2018 Status: COMPLETED Source: PLANO 6:29 PM [facility] REPOSITORY HNO ID: [id number] Author: Amanda Leal Service: Nursing Author Type: Nurse Practitioner Type: Progress Notes Filed: 01/30/2018 6:32 PM Note Text: [facility] CTS POSTOP PROGRESS NOTE Day of Surgery:01/28/2018 S/P SURGERY: 01/28/2018 INTERVAL EVENTS / PERTINENT ROS: -Endocarditis-Continue Rocephin and Doxycycline per ID -H/o Afib-Eliquis pre-op, Discuss with Dr. Alarcon if Eliquis needs to be resumed. -Moderate Hemothorax-VATS washout 01/28 with thoracic-1 Liter old blood and clots retrieved. Two L Pl CT remain-total 145 cc/24hrs-both to water seal -Anemia-H/H 7.6/24.3 today-transfused 1 unit PRBC -Hypotension-SBP 80's-90's-PRBC given, Carvedilol dc'd. Started on Midodrine TID -IRINA- SrCr 4.00 today. Plan for IHD Thursday Rhythm: Paced Intake/Output Summary (Last 24 hours) at 01/30/18 1831 Last data filed at 01/30/18 1800 Gross per 24 hour Intake 931 ml Output 141 ml Net 790 ml EKG: most recent image reviewed TELE: most recent recordings reviewed CXR: most recent image reviewed Echocardiogram: most recent report reviewed PHYSICAL EXAM: BP 87/50 Pulse 79 Temp 36.5 ?C (97.7 ?F) (Oral) Resp 18 Ht 193 cm (6' 4) Wt 103.2 kg (227 lb 8 oz) SpO2 96% BMI 27.69 kg/m? Neuro: AANDO x 3 moves all extremities with no apparent weakness CV: no jugular venous distention Heart Exam: RRR without murmur, gallop, or rubs. No ectopy. Resp: clear to auscultation bilaterally and diminished breath sounds. Resp even/unlabored Abd: The abdomen is soft, nontender, nondistended; BS normal; no masses or organomegaly noted. Skin: Skin color, texture, turgor normal, no suspicious rashes or lesions Ext: Trace edema Surgical incisions: Well approximated. No drainage or erythema Chest tube: Yes-managed per thoracic Pacer wires: No. 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 WBC 3.65. afebrile Plan: Continue ABx per ID Hemothorax 01/28 s/p Right VATS, washout and hematoma evacuation, decortication. Atrial Fibrillation (Hcc) History: Hx post op AF, S/P DCC 06/07. On Apixaban and BB pre-op. Assessment: V paced on telemetry. No AF/AT per recent pacer check Plan: Discontinued Coreg- due to hypotension. Home med Apixaban - discuss with CTS regarding AC. Htn (Hypertension) History: on hydralazine, lopressor at home Assessment: SBP 80's-90's Plan: Continue coreg Irina (Acute Kidney Injury) (Hcc) History: started dialysis 12/27/17. permacath dialysis access Assessment: Scr 4.00. Oliguric. Plan: Plan for next session IHD Thursday. Renal following. Pain, Postoperative, Acute History: postop Assessment: reports pain is controlled at times. Plan: Continue with PIPELINE CONSTRUCTION INSPECTOR Fent one more day. Optimize pain control w/ scheduled Lidoderm patches and Tylenol, prn Oxycodone/tramadol Discharge Planning Issues -from [place], [place]. PT recs home. No DC date yet. Plans to follow up with home PCP and [facility] [employer]. DAILY STEP DOWN CHECKLIST FOR CATHETER RELATED INFECTION PREVENTION CVC, PICC, Sylvia and/or Permacath present? No Does the patient have a urinary catheter beyond POD 2? No VTE Risk Assessment: Moderate risk VTE Mechanical and/or Pharmacologic Prophylaxis: IPC Device, GCS and Subcutaneous Heparin Labs and medications reviewed in Epic Case discussed in depth with: CTS team with Dr. Alarcon SIGNATURE: Amanda Leal APRN.CNP PATIENT NAME: Frank Rivera DATE: January 30, 2018 TIME: PAGER/CONTACT #: [phone] ETX#[id number] NURSING PROG Observed: 01/30/2018 Status: COMPLETED Source: PLANO 11:27 AM [facility] REPOSITORY HNO ID: [id number] Author: Elia (Rn) DIEUDONNE Jalloh Service: (none) Author Type: Registered Nurse Type: Nursing Progress Note Filed: 01/30/2018 11:28 AM Note Text: BP 76/46 at most recent check. Pt is up in chair and awake. Reports feeling a little tired but otherwise has not symptoms. Patient placed back in bed and LIP notified. WIll continue to monitor and follow up as needed. PROGRESS Observed: 01/30/2018 Status: COMPLETED Source: PLANO 10:31 AM [facility] REPOSITORY HNO ID: [id number] Author: Kam Kenney Service: (none) Author Type: (none) Type: Progress Notes Filed: 01/30/2018 10:31 AM Note Text: Radiology Service Progress Note PATIENT NAME: Frank Rivera DATE OF SERVICE: January 30, 2018 TIME: 10:31 AM PATIENT IDENTITY VERIFICATION COMPLETED USING TWO (2) METHODS: Patient confirmed name verbally and ID band matches.. PATIENT GENDER DATA: Male PATIENT RELEVANT IMPLANT DATA REVIEWED: Not Applicable RADIOLOGY DEPARTMENT: General X-ray: Exam(s) Completed: Chest X-Ray PERIPHERAL IV DATA: Not applicable SIGNED BY: Kam Kenney January 30, 2018 10:31 AM XR CHEST 2V FRONTAL/LAT Observed: 01/30/2018 Status: F Source: PLANO 10:30 AM [facility] REPOSITORY * * *Final Report* * * DATE OF EXAM: Jan 30 2018 10:30AM JIX [id number] - XR CHEST 2V FRONTAL/LAT / PROCEDURE REASON: Pleural effusion * * * * Physician Interpretation * * * * EXAMINATION: CHEST RADIOGRAPH (2 VIEW FRONTAL and LATERAL) CLINICAL HISTORY: Pleural effusion, MQ: XC2_5 Comparison: 1 day prior RESULT: Lines, tubes, and devices: Stable Lungs and pleura: Improvement of basilar atelectatic changes. Improving superimposed edema or inflammation cannot be excluded. Small right hydropneumothorax remains. There is blunting of the left CP angle which may represent tiny effusion or pleural thickening. Cardiomediastinal silhouette: Heart enlarged. Thoracic aorta is tortuous. Other: Median sternotomy. IMPRESSION: As above Loss Prevention Operations Manager: IDA Transcribe Date/Time: Jan 30 2018 12:54P Dictated by : ARLEN AGARWAL MD This examination was interpreted and the report reviewed and electronically signed by: ARLEN AGARWAL MD on Jan 30 2018 12:54PM EST [id number] CBC Collected: 01/30/2018 Status: F Source: PLANO 5:40 AM [facility] REPOSITORY TYPE CODE TESTS RESULT OUT OF REFERENCE UNITS RANGE LAB WBC 3.70-11.00 k/uL Low WBC 3.65 LAB RBC 4.20-6.00 m/uL Low RBC 2.49 LAB HGB 13.0-17.0 g/dL Low Hemoglobin 7.6 LAB HCT 39.0-51.0 % Low Hematocrit 24.3 LAB MCV 80.0-100.0 fL MCV 97.6 LAB MCH 26.0-34.0 pG MCH 30.5 LAB MCHC 30.5-36.0 g/dL MCHC 31.3 LAB RDWCV 11.5-15.0 % RDW-CV High 19.0 LAB PLTCT 150-400 k/uL Low Platelet Count 91 Result Comment: No clot detected. LAB MPV 9.0-12.7 fL MPV 9.4 LAB ABSNUC <0.01 k/uL Absolute nRBC <0.01 Performed By: #### CBC, CMP #### [facility] [address] [place], [place] [address] COMP METABOLIC PANEL Collected: 01/30/2018 Status: F Source: PLANO 5:40 AM [facility] RE[facility] TYPE CODE TESTS RESULT OUT OF REFERENCE UNITS RANGE LAB TP 6.3-8.0 g/dL Low Protein, Total 5.9 LAB ALB 3.9-4.9 g/dL Low Albumin 2.1 LAB CA 8.5-10.2 mg/dL Low Calcium, Total 8.1 LAB TBIL 0.2-1.3 mg/dL Bilirubin, Total 0.4 LAB ALKP 38-113 U/L Alkaline Phosphatase 102 LAB AST 14-40 U/L AST 18 LAB GLU 74-99 mg/dL Low Glucose 73 Result Comment: The [place] Diabetes Association (ADA) provides guidance for cutoff values for fasting glucose and random glucose. The ADA defines fasting as no caloric intake for at least 8 hours. Fas ting plasma glucose results between 100 to 125 mg/dL indicate increased risk for diabetes (prediabetes). Fasting plasma glucose results greater than or equal to 126 mg/dL meet the criteria for diagnosis of diabetes. In the absence of unequivocal hyperglycemia, results should be confirmed by repeat testing. In a patient with classic symptoms of hyperglycemia or hyperglycemic crisis, random plasma glucose results greater than or equal to 200 mg/dL meet the criteria for diagnosis of diabetes. Reference: Standards of Medical Care in Diabetes 2016, [place] [employer]. Diabetes Care. 2016.39(Suppl 1). LAB BUN 9-24 mg/dL BUN 16 LAB CRET 0.73-1.22 mg/dL Creatinine High 4.00 LAB NA 136-144 mmol/L Low Sodium 134 LAB K 3.7-5.1 mmol/L Potassium 5.0 LAB CL 97-105 mmol/L Chloride 98 LAB CO2 22-30 mmol/L CO2 25 LAB AGAP 9-18 mmol/L Anion Gap 11 LAB ALT 10-54 U/L Low ALT 7 LAB GFRAA eGFR- Amer. 19 LAB GFRNAA . eGFR-All Other Races 15 Result Comment: eGFR (Estimated GFR) Units of measure: mL/min/1.73 meters squared eGFR is derived from the reexpressed MDRD Study equation using the following parameters: serum creatinine, age, gender and race. The creatinine assay has been calibrated to be traceable to IDMS. An eGFR <60 mL/min/1.73m2 for >3 months is consistent with chronic kidney disease. Refer to KDOQI guidelines for clinical interpretation. In patients with unstable renal function, e.g. those with acute kidney injury, the eGFR may not accurately reflect actual GFR. Performed By: #### CBC, CMP #### [facility] [address] [place], [place] [address] CONSULT Observed: 01/29/2018 Status: COMPLETED Source: PLANO 3:58 PM [facility] REPOSIT[facility] HNO ID: [id number] Author: Mark Jacobs Service: Thoracic Surgery Author Type: Resident Type: Consults Filed: 01/30/2018 10:05 AM Note Text: [facility] THORACIC SURGERY CONSULT PROGRESS NOTE Frank Rivera [id number] PRIMARY SERVICE: Hvi Card Surg B HOSPITAL DAY: # 36 INTERVAL HISTORY No acute events overnight R CT / darryn with 140 / 5 out in 24 hours. Vitals stable. On 2-3 L NC. PHYSICAL EXAM BP 98/59 Pulse 80 Temp 36 ?C (96.8 ?F) (Oral) Resp 23 Ht 193 cm (6' 4) Wt 107.8 kg (237 lb 10.5 oz) SpO2 96% BMI 28.93 kg/m? Constitutional: no acute distress Resp: clear bilaterally Cardiovascular: regular rate and rhythm GI: soft, non-tender to palpation Neurological/Psychiatric: oriented, no gross focal neurologic deficits DATA Recent Labs 01/29/18 0330 01/29/18 0150 01/28/18 1657 WBC 4.02 4.00 3.14* HB 8.1* 7.6* 8.6* HCT 25.2* 23.7* 26.6* PLT 98* 84* 103* Recent Labs 01/29/18 0330 01/28/18 0310 01/27/18 0341 NA 136 132* 132* K 4.6 4.5 4.7 CO2 23 27 26 BUN 17 13 18 CREAT 4.65* 3.81* 4.51* GLUC 69* 79 72* IMAGING I personally reviewed: CXR ASSESSMENT AND PLAN 62 year old male with atrial fibrillation (previously on apixaban), hypertension, prior CVA with residual dysphagia, and h/o RYGB in 1995 c/b recurrent GI bleeds, who is now s/p redo sternotomy, AVR with homograft, TV repair, and placement of epicardial leads for prosthetic valve endocarditis on 01/19, now with R pleural effusion / hemothorax. SP R VATS washout / decortication on 01/28 - place chest tubes to water seal, daily chest XR at 4 AM - out of bed as tolerated, bronchopulmonary hygiene Mark Jacobs MD Cardiothoracic Surgery PGY2 Thoracic Consult Pager: [phone] BUN, POST DIALYSIS Collected: 01/29/2018 Status: F Source: PLANO 3:35 PM [facility] REPOSITORY TYPE CODE TESTS RESULT OUT OF REFERENCE UNITS RANGE LAB BUNPO 9-24 mg/dL BUN, Post Dialysis 9 LAB BUNRAT % Urea Reduction Ratio 55 Performed By: #### BUNPO1 #### [facility] [address] [place], [place] [address] CONSULT Observed: 01/29/2018 Status: COMPLETED Source: PLANO 2:04 PM [facility] REPOSITORY HNO ID: [id number] Author: Mark Jacobs Service: Thoracic Surgery Author Type: Resident Type: Consults Filed: 01/29/2018 2:06 PM Note Text: [facility] THORACIC SURGERY CONSULT PROGRESS NOTE Frank Rivera [id number] PRIMARY SERVICE: Hvi Card Surg B HOSPITAL DAY: # 36 INTERVAL HISTORY POD#1 R VATS washout / decortication Vitals stable. On 2-3 L NC H/H responded to 1 U RBC yesterday. PHYSICAL EXAM BP 104/65 Pulse 80 Temp 36.2 ?C (97.2 ?F) (Oral) Resp 16 Ht 193 cm (6' 4) Wt 107.8 kg (237 lb 10.5 oz) SpO2 95% BMI 28.93 kg/m? Constitutional: no acute distress Resp: decreased R BS Cardiovascular: regular rate and rhythm GI: soft, non-tender to palpation Neurological/Psychiatric: oriented, no gross focal neurologic deficits DATA Recent Labs 01/29/18 0330 01/29/18 0150 01/28/18 1657 WBC 4.02 4.00 3.14* HB 8.1* 7.6* 8.6* HCT 25.2* 23.7* 26.6* PLT 98* 84* 103* Recent Labs 01/29/18 0330 01/28/18 0310 01/27/18 0341 NA 136 132* 132* K 4.6 4.5 4.7 CO2 23 27 26 BUN 17 13 18 CREAT 4.65* 3.81* 4.51* GLUC 69* 79 72* IMAGING I personally reviewed: CXR ASSESSMENT AND PLAN 62 year old male with atrial fibrillation (previously on apixaban), hypertension, prior CVA with residual dysphagia, and h/o RYGB in 1995 c/b recurrent GI bleeds, who is now s/p redo sternotomy, AVR with homograft, TV repair, and placement of epicardial leads for prosthetic valve endocarditis on 01/19, now with R pleural effusion / hemothorax. SP R VATS washout / decortication on 01/28 - transfer to [facility], Dr. Alarcon service - maintain chest tubes to -10 suction, daily chest XR at 4 AM - out of bed as tolerated, bronchopulmonary hygiene Mark Jacobs MD Cardiothoracic Surgery PGY2 Thoracic Consult Pager: [phone] BUN, PRE DIALYSIS Collected: 01/29/2018 Status: F Source: [place] 12:00 PM [facility] REPOSITORY TYPE CODE TESTS RESULT OUT OF REFERENCE UNITS RANGE LAB BUNPR 9-24 mg/dL BUN, Pre 20 Dialysis Performed By: #### BUNPR #### [facility] [address] [place], [place] [address] PROGRESS Observed: 01/29/2018 Status: COMPLETED Source: [place] 10:11 AM [facility] REPOSITORY HNO ID: [id number] Author: Chelle Camarillo Service: (none) Author Type: (none) Type: Progress Notes Filed: 02/02/2018 3:17 PM Note Text: DIALYSIS PLACEMENT AND ACCEPTANCE CONFIRMATION NOTE Facility: [facility] [place] Days: Thursday/Thursday/Thursday Chair Time: 12:00pm Time of First Treatment: Thursday02-04-18 at 11:30am Accepting Graphics Intern: Dr. Ramirez Signature: Chelle Camarillo Patient Name: Frank Rivera Date: January 29, 2018 Time: 10:11 AM Pager: [phone] CONSULT PROG Observed: 01/29/2018 Status: COMPLETED Source: [place] 10:09 AM [facility] REPOSITORY HNO ID: [id number] Author: Anthony Martinez Service: Nephrology Author Type: Physician Type: Consult Progress Note Filed: 01/29/2018 10:31 AM Note Text: CONSULT PROGRESS NOTE NEPHROLOGY SERVICE Subjective INTERVAL HISTORY: Out off bed. Off pressors since last night. MEDICATIONS: Current hospital medications: aspirin 162 mg chewable tab(s) 162 mg ORAL DAILY atorvastatin 80 mg tab(s) (LIPITOR) 80 mg ORAL AT BEDTIME 0.9% NaCl 2-10 mL 2-10 mL INTRAVENOUS q 12 H fentaNYL PIPELINE CONSTRUCTION INSPECTOR 20 mcg/mL in NaCl 0.9% 100 mL INTRAVENOUS CONTINUOUS fentaNYL 20 mcg/mL PIPELINE CONSTRUCTION INSPECTOR CLINICIAN DOSE 25 mcg 25 mcg INTRAVENOUS q 6 H PRN senna-docusate 8.6-50 mg 1 tablet (SENNA-S) 1 tablet ORAL BID polyethylene glycol 3350 17 g packet (MIRALAX, GLYCOLAX) 17 g ORAL DAILY doxycycline hyclate 100 mg cap(s) (VIBRAMYCIN) 100 mg ORAL q 12 H ALPRAZolam 0.25 mg tab(s) (XANAX) 0.25 mg ORAL BID PRN 0.9% NaCl 3-5 mL 3-5 mL INTRAVENOUS q 12 H 0.9% NaCl 10 mL 10 mL INTRAVENOUS q 12 H potassium chloride ER 10-60 mEq tab(s) (K-DUR, KLOR-CON) 10- 60 mEq ORAL PRN therapeutic multivitamin 1 tablet tab(s) (THERA VITAMIN) 1 tablet ORAL DAILY WITH BREAKFAST pantoprazole DR 20 mg tab(s) (PROTONIX) 20 mg ORAL DAILY (6 AM) acetaminophen 650 mg tab(s) (TYLENOL) 650 mg ORAL q 4 H PRN bisacodyl 10 mg suppository (DULCOLAX) 10 mg RECTAL DAILY PRN sodium phosphate-sodium bisphosphate 133 mL enema (FLEET) 133 mL RECTAL PRN magnesium hydroxide 400 mg/5 mL 30 mL (MOM) 30 mL ORAL q 6 H PRN heparin 5,000 Units injection 5,000 Units SUBCUTANEOUS q 12 H Darbepoetin Tereza In Polysorbat 60 mcg injection (ARANESP) 60 mcg SUBCUTANEOUS q MON carvedilol 25 mg tab(s) (COREG) 25 mg ORAL BID w MEALS ondansetron (PF) 4 mg injection (ZOFRAN) 4 mg INTRAVENOUS q 6 H PRN lidocaine 5 % 1 Patch (LIDODERM) 1 Patch TRANSDERMAL DAILY lidocaine patch - REMOVE OTHER AT BEDTIME lidocaine - VERIFY PATCH OTHER q 8 H oxyCODONE IR 5-10 mg tab(s) (ROXICODONE) 5-10 mg ORAL/FEEDING TUBE q 6 H PRN cefTRIAXone 2 g in D5W 100 mL MB+ (ROCEPHIN) 2 g INTRAVENOUS q 24 H calcium carbonate 1,000 mg chewable tab(s) (TUMS) 1,000 mg ORAL/FEEDING TUBE BID PRN sodium chloride 0.65 % 2 [place] (AYR, OCEAN) 2 [place] EACH NOSTRIL TID PRN dtadmzxo-ktxh-xdcva acid chewable tablet (CENTRUM) 1 tablet ORAL DAILY cholecalciferol 3,000 Units tab(s) (VITAMIN D3) 3,000 Units ORAL DAILY cyanocobalamin 500 mcg tab(s) (VITAMIN B-12) 500 mcg ORAL DAILY thiamine 100 mg tab(s) (VITAMIN B1) 100 mg ORAL DAILY diphenhydrAMINE 25 mg (BENADRYL) 25 mg ORAL q 6 H PRN tamsulosin ER 0.4 mg cap(s) (FLOMAX) 0.4 mg ORAL DAILY levothyroxine 200 mcg tab(s) (SYNTHROID) 200 mcg ORAL BEFORE BREAKFAST DAILY Objective PHYSICAL EXAM: BP 94/59 Pulse 80 Temp 36.1 ?C (97 ?F) (Oral) Resp 18 Ht 193 cm (6' 4) Wt 107.8 kg (237 lb 10.5 oz) SpO2 94% BMI 28.93 kg/m? Gen: in no apparent distress Neuro: awake and responsive Resp: on nasal cannula with normal effort Card: regular rate Access: right internal jugular tunneled line with no bleeding at exit site Intake/Output Summary (Last 24 hours) at 01/29/18 1009 Last data filed at 01/29/18 0930 Gross per 24 hour Intake 30 ml Output 965 ml Net -935 ml DATA: Diagnostic tests reviewed for today's visit: Recent Labs 01/29/18 0330 01/28/18 0310 01/27/18 0341 01/26/18 0403 01/25/18 0343 NA 136 132* 132* 133* 129* K 4.6 4.5 4.7 4.5 4.5 CHLOR 102 98 94* 98 94* CO2 23 27 26 30 27 BUN 17 13 18 13 21 CREAT 4.65* 3.81* 4.51* 3.58* 4.65* GLUC 69* 79 72* 82 81 ANION 11 7* 12 5* 8* CA 7.8* 8.1* 8.5 8.1* 8.2* P -- -- 4.9* -- -- Recent Labs 01/29/18 0330 01/29/18 0150 01/28/18 1657 WBC 4.02 4.00 3.14* HB 8.1* 7.6* 8.6* HCT 25.2* 23.7* 26.6* PLT 98* 84* 103* Assessment/Plan 62 year old male with atrial fibrillation, cerebrovascular disease, and valvular heart disease who is post redo surgery on 01/19, and right VATS on 01/28. 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 - continue renal replacement therapy for acute kidney injury - intermittent dialysis for solute and volume control Anthony Martinez MD January 29, 2018 PROGRESS Observed: 01/29/2018 Status: COMPLETED Source: [place] 10:06 AM [facility] REPOSITORY O ID: [id number] Author: Javier Lopez Service: (none) Author Type: Anesthesiologist Type: Progress Notes Filed: 01/29/2018 10:07 AM Note Text: [facility] Progress Note Name: Frank Rivera COORDINATION OF CARE NOTE: Indication for Surgery: Infective endocarditis of aortic valve Preop LVEF: Normal RVF: mild Postop LVEF: Normal RVF: mild PMH/PSH: Aortic Stenosis s/p bioprosthetic AVR (27mm St. Richi Trifecta pericardial valve) and RUDY ligation 05/07/17, Atrial fibrillation /p PPM and DCCV in 04/2017 HTN ,Hypothyroidism,, Hx of CVA with residual dysphagia, Hx of Min-En-Y bypass in 1995, Hx of Upper GI bleeds (1997, 2014, 2015) Preop Hosp Course: 62y/o gentleman with atrial fibrillation and SSS s/p PPM, HTN, hypothyroidism, aortic stenosis s/p AVR and RUDY, history of Min-en-Y bypass c/b recurrent GIB, ADRIANNE, B12 deficiency, who presents to [facility] on 12/24/17 with fatigue and shortness of breath who was transferred from OSH with IRINA and renal biopsy concerning for C3 nephropathy. MICU transfer to initiate dialysis secondary to volume overload. CHANDRAKANT 01/01 showed AV vegetation. Airway Difficulty: Grade II - No special instrumentation Pacing Wires: No Chronological List of Surgeries and Major Events (Diagnosis): (Surgeries in bold characters) 01/19/2018: Prosthetic aortic valve explant, Homograft implant as valve/root/ascending aorta and reimplantation of coronary buttons. Explant of right atrial and right ventricular endocardial leads and explant of generator left upper pectoral area. Implant of epicardial leads on right atrium, right ventricule and left ventricle. Pacemaker generator insertion left pre-rectus sheath 01/28/18 Right VATS, washout and hematoma evacuation, decortication A/P of Major Active Problems (excluding routine care and common problems): -S/p reimplantation PPM. Formal device check done 01/25 -Endocarditis. ID following. On Rocephin QD. RCW SYLVIA catheter intact -Hx of afib. On eliquis preop. Recent pacer check showed no AT/AF. Discuss resumption of eliquis once hemothorax resolved. -Mod right pleural effusion per cxr. Was tapped on the right with 850cc on 01/22. Chest CT per Dr. Alarcon. CT showed right moderate hemothorax. 01/28 VATS washout done per thoracic team-1 Liter of old blood and clots removed. -IRINA-IHD MWF. RCW permacath intact. Plan for IHD per renal. Nephro continue to follow -from [place], [place]. PT recs home. No DC date yet. Plans to follow up with home PCP and [facility] [employer] (not requested). 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 WBC 3.91. afebrile Plan: Continue ABx per ID. - Hemothorax 01/28 s/p Right VATS, washout and hematoma evacuation, decortication - Atrial fibrillation (HCC) History: Hx post op AF, S/P DCC 06/07. On Apixaban and BB pre-op. Assessment: V paced on telemetry. No AF/AT per recent pacer check Plan: Continue Coreg- now optimal dose. Home med Apixaban - discuss with CTS regarding AC - HTN (hypertension) History: on hydralazine, lopressor at home Assessment: SBP 99-130 Plan: Continue coreg. - IRINA (acute kidney injury) (HCC) History: started dialysis 12/27/17. permacath dialysis access Assessment: Scr 3.81. Oliguric Plan: Plan for next session IHD Thursday. Renal following - Pain, postoperative, acute History: postop Assessment: reports pain is controlled Plan: Optimize pain control w/ scheduled Lidoderm patches and Tylenol, prn Oxycodone. - Discharge planning issues -from [place], [place]. PT recs home. No DC date yet. Plans to follow up with home PCP and [facility] [employer] SUBJECTIVE INTERVAL HISTORY: No acute events PERTINENT REVIEW OF SYSTEMS: See Assessment and Plan. Remaining ROS reviewed and negative. PHYSICAL EXAM AND PERTINENT DATA: Infusions: None Vital Signs: BP 94/59 Pulse 80 Temp 36.1 ?C (97 ?F) (Oral) Resp 18 Ht 193 cm (6' 4) Wt 107.8 kg (237 lb 10.5 oz) SpO2 94% BMI 28.93 kg/m? Neuro: Awake, Follows commands, Alert and oriented x [address] Cardiovascular: Rhythm: regular rate and rhythm MAP: 72 mm Hg CVP: 12 mm Hg PAP: mm Hg Cardiac Index: L/min/m2 Pulmonary: Diminished breath sounds and some crackles Ventilator: Extubated Recent Labs 01/29/18 0802 01/29/18 0200 01/28/18 2231 PH 7.34* 7.34* 7.34* PCO2 48* 50* 50* PO2 81* 70* 65* HCO3 25 26 26 O2HB 94* 92* 90* LACT 0.5 0.5 0.5 CXR Findings: basilar rt ptx, effusions/atelectasis, edema Gastrointestinal: Abdominal: Soft and Non-tender Recent Labs 01/29/18 0330 01/28/18 0310 01/27/18 0341 TPROT 5.6* 6.5 6.5 ALB 2.0* 2.3* 2.1* ALKPHOS 94 112 113 TBILI 0.4 0.5 0.4 AST 15 19 19 ALT 9* 13 11 Heme: Recent Labs 01/29/18 0330 01/29/18 0150 01/28/18 1657 WBC 4.02 4.00 3.14* HB 8.1* 7.6* 8.6* HCT 25.2* 23.7* 26.6* PLT 98* 84* 103* Recent Labs 01/28/18 1657 01/27/18 1502 PTSEC 13.7* 13.8* INR 1.3 1.3 APTT 33.3* 33.8* Endocrine: Renal: anuric Intake/Output Summary (Last 24 hours) at 01/29/18 0659 Last data filed at 01/29/18 0630 Gross per 24 hour Intake 30 ml Output 955 ml Net -925 ml Recent Labs 01/29/18 0330 01/28/18 0310 01/27/18 0341 NA 136 132* 132* K 4.6 4.5 4.7 CHLOR 102 98 94* CO2 23 27 26 BUN 17 13 18 CREAT 4.65* 3.81* 4.51* GLUC 69* 79 72* Recent Labs 01/29/18 0330 01/28/18 0310 01/27/18 0341 CA 7.8* 8.1* 8.5 Recent Labs 01/27/18 0341 P 4.9* Drug Blood Levels: I have discussed the case and the plan and management of the patient's care with the primary surgical team and consulting services, the bedside nurse and the respiratory therapist. SIGNATURE: Javier Lopez MD DATE of SERVICE: 01/29/2018 TIME of SERVICE: 10:06 AM CASE MANAGEM Observed: 01/29/2018 Status: COMPLETED Source: [place] 9:12 AM [facility] REPOSITORY [facility] ID: [id number] Author: Lilian (Rn) DIEUDONNE aVllejo Service: Case Management Author Type: Registered Nurse Type: Care Mgt Progress Note Filed: 01/29/2018 9:33 AM Note Text: CARE MANAGEMENT PROGRESS NOTE SERVICE DATE: 01/29/2018 SERVICE TIME: 9:12 AM LOS: 36 days Needs Prior to Discharge: To Be Determined Procedure Needed: outpatient dialysis Procedure(s): Right VATS, washout and hematoma evacuation, decortication Findings: 1L of old blood and clot Extubated to 3L o2, plan for IHD today then transfer to stepdown. No weekend discharge anticipated. SIGNATURE: Lilian Vallejo RN PATIENT NAME: Frank Rivera DATE: January 29, 2018 TIME: 9:12 AM PAGER/CONTACT #: [phone] GASA + ALL Collected: 01/29/2018 Status: F Source: [facility] 8:02 AM [facility] USE ONLY REPOSITORY TYPE CODE TESTS RESULT OUT OF REFERENCE UNITS RANGE LAB PH 7.35-7.45 pH Low 7.34 LAB PCO2 34-46 mm Hg pCO2 High 48 LAB PO2 85-95 mm Hg pO2 Low 81 LAB BE mmol/L Base Excess 0 LAB HCO3 22-26 mmol/L Bicarbonate 25 LAB CO2CT 22.0-28.0 mmol/L CO2 Content 27 LAB O2HB 95-98 % Oxyhemoglobin, Low Art. 94 LAB COHB 0-5.0 % Carboxyhemoglobin,A 2.1 rt LAB MHGB 0.4-1.5 % Methemoglobin 0.5 LAB TEMP C Temperature, Body 37.0 LAB PHTC 7.35-7.45 pH, Temp Low Corrected 7.34 LAB PCO2T 34-46 mm Hg pCO2, Temp High Correct 48 LAB PO2T mm Hg pO2, Temp Corrected 81 LAB NAB 135-146 mmol/L Sodium,Whole Bld Low 132 LAB KWB 3.5-5.0 mmol/L Potassium, Whole Bld 4.7 LAB HGBB 13.0-17.0 g/dL Low Hemoglobin,Total,AC 9.1 L LAB HCTB 39.0-51.0 % Hematocrit, ACL Low 28 LAB IC 1.08-1.30 mmol/L Calcium, Ion, WB 1.23 LAB GLB 60-105 mg/dL Glucose,Whole Bld 77 LAB LACT 0.5-2.2 mmol/L Lactate 0.5 Performed By: #### ALLBG #### [facility] [address] [place], [place] [address] XR CHEST 1V FRONTAL Observed: 01/29/2018 Status: F Source: [facility] 3:35 AM [facility] REPOSITORY * * *Final Report* * * DATE OF EXAM: Jan 29 2018 3:35AM JIX [id number] - XR CHEST 1V FRONTAL PORT / PROCEDURE REASON: Post-operative / post-procedure assessment, asymptomatic * * * * Physician Interpretation * * * * EXAMINATION: CHEST RADIOGRAPH (PORTABLE SINGLE VIEW AP) Exam Date/Time: 01/29/2018 3:35 AM Clinical History: Post-operative / post-procedure assessment, asymptomatic, MQ: [id number] Comparison: 1 day prior RESULT: See impression. IMPRESSION: Lines, tubes, and devices: Stable life-support devices. Status post median sternotomy and left 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 ligation clip placement. Rotated to the left. Surgical clips overlie the left lower hemithorax and partial visualization of epicardial leads. Mildly rotated to the left. Exclusion of lung bases. Lungs and pleura: Stable to progressive opacities, suggestive of bilateral pleural effusions, associated atelectasis/consolidation partly loculated right hemothorax component within the right major fissure was visible on 01/26/[address], presumably drained. Right basilar pneumothorax component suspected laterally.. Pulmonary edema may be present.. Cardiomediastinal silhouette: Presumed stable cardiomediastinal structures, although portions of the right heart border is obscured.. Mild prominence of central pulmonary arteries questioned. Other: . Loss Prevention Operations Manager: IDA Transcribe Date/Time: Jan 29 2018 9:10A Dictated by : YULISSA FONTAINE MD This examination was interpreted and the report reviewed and electronically signed by: YULISSA FONTAINE MD on Jan 29 2018 9:15AM EST [id number] CBC Collected: 01/29/2018 Status: F Source: [place] 3:30 AM [facility] REPOSITORY TYPE CODE TESTS RESULT OUT OF REFERENCE UNITS RANGE LAB WBC 3.70-11.00 k/uL WBC 4.02 LAB RBC 4.20-6.00 m/uL Low RBC 2.62 LAB HGB 13.0-17.0 g/dL Low Hemoglobin 8.1 LAB HCT 39.0-51.0 % Low Hematocrit 25.2 LAB MCV 80.0-100.0 fL MCV 96.2 LAB MCH 26.0-34.0 pG MCH 30.9 LAB MCHC 30.5-36.0 g/dL MCHC 32.1 LAB RDWCV 11.5-15.0 % RDW-CV High 19.0 LAB PLTCT 150-400 k/uL Low Platelet Count 98 Result Comment: No clot detected. LAB MPV 9.0-12.7 fL MPV 9.7 LAB ABSNUC <0.01 k/uL Absolute nRBC <0.01 Performed By: #### CBC, CMP #### [facility] [address] [place], [place] [address] COMP METABOLIC PANEL Collected: 01/29/2018 Status: F Source: [place] 3:30 AM [facility] REPOSITORY TYPE CODE TESTS RESULT OUT OF REFERENCE UNITS RANGE LAB TP 6.3-8.0 g/dL Low Protein, Total 5.6 LAB ALB 3.9-4.9 g/dL Low Albumin 2.0 LAB CA 8.5-10.2 mg/dL Low Calcium, Total 7.8 LAB TBIL 0.2-1.3 mg/dL Bilirubin, Total 0.4 LAB ALKP 38-113 U/L Alkaline Phosphatase 94 LAB AST 14-40 U/L AST 15 LAB GLU 74-99 mg/dL Low Glucose 69 Result Comment: The [place] Diabetes [employer] (ADA) provides guidance for cutoff values for fasting glucose and random glucose. The ADA defines fasting as no caloric intake for at least 8 hours. Fas ting plasma glucose results between 100 to 125 mg/dL indicate increased risk for diabetes (prediabetes). Fasting plasma glucose results greater than or equal to 126 mg/dL meet the criteria for diagnosis of diabetes. In the absence of unequivocal hyperglycemia, results should be confirmed by repeat testing. In a patient with classic symptoms of hyperglycemia or hyperglycemic crisis, random plasma glucose results greater than or equal to 200 mg/dL meet the criteria for diagnosis of diabetes. Reference: Standards of Medical Care in Diabetes 2016, [place] [employer] Association. Diabetes Care. 2016.39(Suppl 1). LAB BUN 9-24 mg/dL BUN 17 LAB CRET 0.73-1.22 mg/dL Creatinine High 4.65 Result Comment: Result rechecked. LAB NA 136-144 mmol/L Sodium 136 LAB K 3.7-5.1 mmol/L Potassium 4.6 LAB CL 97-105 mmol/L Chloride 102 LAB CO2 22-30 mmol/L CO2 23 LAB AGAP 9-18 mmol/L Anion Gap 11 LAB ALT 10-54 U/L ALT Low 9 LAB GFRAA eGFR- Amer. 16 LAB GFRNAA . eGFR-All Other Races 13 Result Comment: eGFR (Estimated GFR) Units of measure: mL/min/1.73 meters squared eGFR is derived from the reexpressed MDRD Study equation using the following parameters: serum creatinine, age, gender and race. The creatinine assay has been calibrated to be traceable to IDMS. An eGFR <60 mL/min/1.73m2 for >3 months is consistent with chronic kidney disease. Refer to KDOQI guidelines for clinical interpretation. In patients with unstable renal function, e.g. those with acute kidney injury, the eGFR may not accurately reflect actual GFR. Performed By: #### CBC, CMP #### [facility] [address] [place], [place] [address] GASA + ALL Collected: 01/29/2018 Status: F Source: [place] FOR 2:00 AM [facility] USE ONLY REPOSITORY TYPE CODE TESTS RESULT OUT OF REFERENCE UNITS RANGE LAB PH 7.35-7.45 pH Low 7.34 LAB PCO2 34-46 mm Hg pCO2 High 50 LAB PO2 85-95 mm Hg pO2 Low 70 LAB BE mmol/L Base Excess 1 LAB HCO3 22-26 mmol/L Bicarbonate 26 LAB CO2CT 22.0-28.0 mmol/L CO2 Content 28 LAB O2HB 95-98 % Oxyhemoglobin, Low Art. 92 LAB COHB 0-5.0 % Carboxyhemoglobin,A 2.2 rt LAB MHGB 0.4-1.5 % Methemoglobin 0.6 LAB TEMP C Temperature, Body 37.0 LAB PHTC 7.35-7.45 pH, Temp Low Corrected 7.34 LAB PCO2T 34-46 mm Hg pCO2, Temp High Correct 50 LAB PO2T mm Hg pO2, Temp Corrected 70 LAB NAB 135-146 mmol/L Sodium,Whole Bld Low 134 LAB KWB 3.5-5.0 mmol/L Potassium, Whole Bld 4.5 LAB HGBB 13.0-17.0 g/dL Low Hemoglobin,Total,AC 8.4 L LAB HCTB 39.0-51.0 % Hematocrit, ACL Low 26 LAB IC 1.08-1.30 mmol/L Calcium, Ion, WB 1.24 LAB GLB 60-105 mg/dL Glucose,Whole Bld 77 LAB LACT 0.5-2.2 mmol/L Lactate 0.5 Performed By: #### ALLBG #### [facility] [address] [place], [place] [address] CBC Collected: 01/29/2018 Status: F Source: [place] 1:50 AM [facility] REPOSITORY TYPE CODE TESTS RESULT OUT OF REFERENCE UNITS RANGE LAB WBC 3.70-11.00 k/uL WBC 4.00 LAB RBC 4.20-6.00 m/uL Low RBC 2.47 LAB HGB 13.0-17.0 g/dL Low Hemoglobin 7.6 LAB HCT 39.0-51.0 % Low Hematocrit 23.7 LAB MCV 80.0-100.0 fL MCV 96.0 LAB MCH 26.0-34.0 pG MCH 30.8 LAB MCHC 30.5-36.0 g/dL MCHC 32.1 LAB RDWCV 11.5-15.0 % RDW-CV High 18.7 LAB PLTCT 150-400 k/uL Low Platelet Count 84 Result Comment: No clot detected. LAB MPV 9.0-12.7 fL MPV 9.2 LAB ABSNUC <0.01 k/uL Absolute nRBC <0.01 Performed By: #### CBC #### [facility] [address] [place], [place] [address] GASA + ALL Collected: 01/28/2018 Status: F Source: [place] FOR 10:31 PM [facility] USE ONLY REPOSITORY TYPE CODE TESTS RESULT OUT OF REFERENCE UNITS RANGE LAB PH 7.35-7.45 pH Low 7.34 LAB PCO2 34-46 mm Hg pCO2 High 50 LAB PO2 85-95 mm Hg pO2 Low 65 LAB BE mmol/L Base Excess 1 LAB HCO3 22-26 mmol/L Bicarbonate 26 LAB CO2CT 22.0-28.0 mmol/L CO2 Content 28 LAB O2HB 95-98 % Oxyhemoglobin, Low Art. 90 LAB COHB 0-5.0 % Carboxyhemoglobin,A 1.3 rt LAB MHGB 0.4-1.5 % Methemoglobin Low 0.3 LAB TEMP C Temperature, Body 37.0 LAB PHTC 7.35-7.45 pH, Temp Low Corrected 7.34 LAB PCO2T 34-46 mm Hg pCO2, Temp High Correct 50 LAB PO2T mm Hg pO2, Temp Corrected 65 LAB NAB 135-146 mmol/L Sodium,Whole Bld 135 LAB KWB 3.5-5.0 mmol/L Potassium, Whole Bld 4.6 LAB HGBB 13.0-17.0 g/dL Low Hemoglobin,Total,AC 8.8 L LAB HCTB 39.0-51.0 % Hematocrit, ACL Low 27 LAB IC 1.08-1.30 mmol/L Calcium, Ion, WB High 1.31 LAB GLB 60-105 mg/dL Glucose,Whole Bld 72 LAB LACT 0.5-2.2 mmol/L Lactate 0.5 Performed By: #### ALLBG #### [facility] [address] [place], [place] [address] ANES POST Observed: 01/28/2018 Status: COMPLETED Source: [place] 9:46 PM [facility] REPOSITORY HNO ID: [id number] Author: Beatriz Grant Service: Anesthesiology Author Type: Physician Type: Anesthesia PostOp Filed: 01/28/2018 9:46 PM Note Text: POST ANESTHESIA EVALUATION NOTE SERVICE DATE: 01/28/2018 SERVICE TIME: 9:46 PM : 1955 Vitals: 01/27/18 2300 01/28/18 0258 01/28/18 0739 01/28/18 1112 Temp: 36.8 ?C (98.2 ?F) 37.2 ?C (99 ?F) 36.7 ?C (98.1 ?F) 36.9 ?C (98.4 ?F) 01/28/18192901/28/18194901/28/18200901/28/182029 Arterial BP 1: 149/73 144/70 150/70 147/69 BP: 01/28/18192901/28/18194901/28/18200901/28/182029 Pulse: 79 79 80 80 01/28/18192901/28/18194901/28/18200901/28/182029 Resp: 15 16 15 14 01/28/18 1930 11/08/18 1950 01/28/18200901/28/182029 SpO2: 91% 92% 92% 93% Validated Vital Signs: Yes POST ANES STATUS: No apparent anesthetic complications. The patient is appropriately hydrated with stable respiratory and cardiovascular status. Patient has safe and adequate airway control. The patient has appropriate pain relief and no significant post operative nausea or vomiting. The patient has achieved baseline mental status. Intra-Operative Events: No Significant Anesthesia Events Further assessment by Anesthesia Service: None Other Remarks: SIGNATURE: Beatriz Grant MD PATIENT NAME: Frank Rivera DATE: January 28, 2018 TIME: 9:46 PM PAGER/CONTACT #: [phone] PROGRESS Observed: 01/28/2018 Status: COMPLETED Source: [place] 5:52 PM [facility] REPOSITORY [facility]NO ID: [id number] Author: Amanda Leal Service: Nursing Author Type: Nurse Practitioner Type: Progress Notes Filed: 01/28/2018 6:04 PM Note Text: [facility] CTS POSTOP PROGRESS NOTE Day of Surgery:01/28/2018 S/P SURGERY: 01/28/2018 INTERVAL EVENTS / PERTINENT ROS: -Endocarditis-Continue Rocephin and Doxycycline per ID -H/o Afib-Eliquis pre-op, Discuss with Dr. Alarcon if Eliquis needs to be resumed. -Moderate Hemothorax-VATS washout today with thoracic-1 Liter old blood and clots retrieved. -IRINA- SrCr 3.81 today. Plan for IHD tomorrow -Ambulating well Rhythm: Paced Intake/Output Summary (Last 24 hours) at 01/28/18 1802 Last data filed at 01/28/18 1730 Gross per 24 hour Intake 60 ml Output 345 ml Net -285 ml EKG: most recent image reviewed TELE: most recent recordings reviewed CXR: most recent image reviewed Echocardiogram: most recent report reviewed PHYSICAL EXAM: BP 121/82 Pulse 80 Temp 36.9 ?C (98.4 ?F) (Oral) Resp 13 Ht 193 cm (6' 4) Wt 106.9 kg (235 lb 9.6 oz) SpO2 92% BMI 28.68 kg/m? Neuro: AANDO x 3 moves all extremities with no apparent weakness CV: no jugular venous distention Heart Exam: RRR without murmur, gallop, or rubs. No ectopy. Resp: clear to auscultation bilaterally and diminished breath sounds. Resp even/unlabored Abd: The abdomen is soft, nontender, nondistended; BS normal; no masses or organomegaly noted. Skin: Skin color, texture, turgor normal, no suspicious rashes or lesions Ext: Trace edema Surgical incisions: Well approximated. No drainage or erythema Chest tube: No Pacer wires: No. HISTORY, ASSESSMENT AND PLAN: Problem Transition of Care Performed With Sharing of Clinical Summary Indication for Surgery: Infective endocarditis of aortic valve Preop LVEF: Normal RVF: mild Postop LVEF: Normal RVF: mild PMH/PSH: Atrial fibrillation /p PPM and DCCV in 04/2017 on apixaban 5mg BID on metoprolol 12.5mg BID, HTN ,Hypothyroidism, Aortic Stenosis s/p bioprosthetic AVR (27mm St. 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 MICU transfer to initiate dialysis secondary to volume overload. CHANDRAKANT 01/01 showed AV vegitation. Airway Difficulty: Grade II - No special instrumentation Pacing Wires: No Chronological List of Surgeries and Major Events (Diagnosis): (Surgeries in bold characters) 01/19/2018: Prosthetic aortic valve explant, Homograft implant as valve/root/ascending aorta and reimplantation of coronary buttons Explant of right atrial and right ventricular endocardial leads and explant of generator left upper pectoral area Implant of epicardial leads on right atrium, right ventricule and left ventricle Pacemaker generator insertion left pre-rectus sheath A/P of Major Active Problems (excluding routine care and common problems): -S/p reimplantation PPM. Formal device check done 01/25 -Endocarditis. ID following. On Rocephin QD. RCW SYLVIA catheter intact -Hx of afib. On eliquis preop. Recent pacer check showed no AT/AF. Discuss resumption of eliquis once hemothorax resolved. -Mod right pleural effusion per cxr. Was tapped on the right with 850cc on 01/22. Chest CT per Dr. Alarcon. CT showed right moderate hemothorax. 01/28 VATS washout done per thoracic team-1 Liter of old blood and clots removed. -IRINA-IHD MWF. RCW permacath intact. Plan for IHD tomorrow. Nephro continue to follow -from [place], [place]. PT recs home. No DC date yet. Plans to follow up with home PCP and [facility] [employer] [facility] (not requested). 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 WBC 3.91. afebrile Plan: Continue ABx per ID. Atrial Fibrillation (Hcc) History: Hx post op AF, S/P DCC 06/07. On Apixaban and BB pre-op. Assessment: V paced on telemetry. No AF/AT per recent pacer check Plan: Continue Coreg- now optimal dose. Home med Apixaban - discuss with CTS regarding AC Htn (Hypertension) History: on hydralazine, lopressor at home Assessment: SBP 99-130 Plan: Continue coreg. Pain, Postoperative, Acute History: postop Assessment: reports pain is controlled Plan: Optimize pain control w/ scheduled Lidoderm patches and Tylenol, prn Oxycodone. Irina (Acute Kidney Injury) (Hcc) History: started dialysis 12/27/17. permacath dialysis access Assessment: Scr 3.81. Oliguric Plan: Plan for next session IHD Thursday. Renal following Discharge Planning Issues -from [place], [place]. PT recs home. No DC date yet. Plans to follow up with home PCP and [facility] [employer] [facility] DAILY STEP DOWN CHECKLIST FOR CATHETER RELATED INFECTION PREVENTION CVC, PICC, Sylvia and/or Permacath present? No Does the patient have a urinary catheter beyond POD 2? No VTE Risk Assessment: Moderate risk VTE Mechanical and/or Pharmacologic Prophylaxis: IPC Device, GCS and Subcutaneous Heparin Labs and medications reviewed in Epic Case discussed in depth with: Dr. Alarcon SIGNATURE: Amanda Leal APRN.CNP PATIENT NAME: Frank Rivera DATE: January 28, 2018 TIME: 5:53 PM PAGER/CONTACT #: [phone] ETX#[id number] XR CHEST 1V FRONTAL Observed: 01/28/2018 Status: F Source: [facility] 5:06 PM [facility] REPOSITORY * * *Final Report* * * DATE OF EXAM: Jan 28 2018 5:06PM JIX [id number] - XR CHEST 1V FRONTAL PORT / PROCEDURE REASON: Post-operative / post-procedure assessment, asymptomatic * * * * Physician Interpretation * * * * EXAMINATION: CHEST RADIOGRAPH (PORTABLE SINGLE VIEW AP) Exam Date/Time: 01/28/2018 5:06 PM Clinical History: Post-operative / post-procedure assessment, asymptomatic, MQ: [id number] Comparison: 01/24/2018 RESULT: See impression. IMPRESSION: Lines, tubes, and devices: Placement of right chest tube. Removal of mediastinal drain. Lungs and pleura: Decrease in size of partially loculated right pleural effusion with residual small right hydropneumothorax. Small layering left pleural effusion has mildly increased and/or shifted. Atelectatic changes are again seen at the bases with improvement on the right and worsening on the left. Superimposed infiltrates/infection or edema cannot be entirely excluded. Cardiomediastinal silhouette: Stable cardiomediastinal silhouette. Other: Median sternotomy Loss Prevention Operations Manager: IDA Transcribe Date/Time: Jan 28 2018 5:33P Dictated by : ARLEN AGARWAL MD This examination was interpreted and the report reviewed and electronically signed by: ARLEN AGARWAL MD on Jan 28 2018 5:34PM EST [id number] Collected: 01/28/2018 Status: F Source: [facility] 4:57 PM [facility] REPOSITORY TYPE CODE TESTS RESULT OUT OF RANGE REFERENCE UNITS LAB PSEC 9.7-13.0 sec High PT Sec 13.7 LAB INR 0.9-1.3 PT INR 1.3 Result Comment: Vitamin K Antagonist (VKA) Therapeutic Range: INR 2 to 3 (Target INR of 2.5) Note: For patients treated with VKA drugs, such as warfarin, the [place] [employer] 2012 Guideline recommends a therapeutic INR range of 2 to 3 (target INR of 2.5). This recommendation includes high-risk patients with antiphospholipid syndrome with previous arterial or venous thromboembolism, current-generation mechanical or bioprosthetic aortic heart valve replacement. Note: Patients with mechanical aortic valve replacement and additional risk factors for thromboembolic events (atrial fibrillation, previous thromboembolism, LV dysfunction, hypercoagulable conditions) or an older generation mechanical AVR (i.e., ball in-Cage) or any mechanical MVR should have a INR therapeutic range of 2.5 to 3.5 (target INR of 3). Milo GH, et al. Chest 2012, 141:7S-47S Mateo RA, et al. [facility] 2017, 70: 252-289 Performed By: #### PT, PTT, CBC #### [facility] [employer] [address] [place], [place] [address] APTT Collected: 01/28/2018 Status: F Source: [facility] 4:57 [facility] REPOSITORY TYPE CODE TESTS RESULT OUT OF RANGE REFERENCE UNITS LAB APTT 23.0-32.4 sec High APTT 33.3 Result Comment: Unfractionated Heparin Therapeutic Ranges: Standard Heparin Nomogram: 53 to 78 seconds (anti-Xa level of 0.3 to 0.7 U/ml) Low Dose/ACS Nomogram: 49 to 67 seconds (anti-Xa level of 0.2 to 0.5 U/ml) Stroke Treatment Nomogram: 49 to 67 seconds (anti-Xa level of 0.2 to 0.5 U/ml) Note: The APTT therapeutic range has been determined for the current lot of laboratory APTT reagent in use throughout the [facility]. Performed By: #### PT, PTT, CBC #### [facility] [employer] [address] [place], [place] [address] CBC Collected: 01/28/2018 Status: F Source: [facility] 4:57 [facility] REPOSITORY TYPE CODE TESTS RESULT OUT OF REFERENCE UNITS RANGE LAB WBC 3.70-11.00 k/uL Low WBC 3.14 LAB RBC 4.20-6.00 m/uL Low RBC 2.78 LAB HGB 13.0-17.0 g/dL Low Hemoglobin 8.6 LAB HCT 39.0-51.0 % Low Hematocrit 26.6 LAB MCV 80.0-100.0 fL MCV 95.7 LAB MCH 26.0-34.0 pG MCH 30.9 LAB MCHC 30.5-36.0 g/dL MCHC 32.3 LAB RDWCV 11.5-15.0 % RDW-CV High 18.6 LAB PLTCT 150-400 k/uL Low Platelet Count 103 LAB MPV 9.0-12.7 fL MPV 9.6 LAB ABSNUC <0.01 k/uL Absolute nRBC <0.01 Performed By: #### PT, PTT, CBC #### [facility] [address] [place], [place] [address] BRIEF OP NOT Observed: 01/28/2018 Status: COMPLETED Source: [facility] 3:57 PM [facility] REPOSITORY HNO ID: [id number] Author: Lois Voss Service: Thoracic Surgery Author Type: Resident Type: Brief Op Note Filed: 01/28/2018 3:58 PM Note Text: BRIEF OP NOTE LOG ID: [id number] Surgery/Procedure Date: 01/28/2018 Incision/Procedure Start Time: 2:45 PM Incision Close/Procedure End Time: Surgeon(s)/Proceduralist(s) and Installation Engineer(s): Surgeon(s) and Role: * Rocco Angulo - Primary * Lois Voss - Resident - Assisting Procedure(s): Right VATS, washout and hematoma evacuation, decortication Anesthesia: General Findings: 1L of old blood and clot Estimated Blood Loss: 5 mls Specimens: None Complications: None Drains: 28Fr posterior chest tube, darryn drain Wound Classification: Class 1, operative wound clean, non- traumatic, with no inflammation encountered, no break in technique, gastrointestinal and genitor-urinary tracts not entered Pre-Op/Pre-Procedure Diagnosis: Hemothorax Post-Op/Post-Procedure Diagnosis: * No post-op diagnosis entered * SIGNATURE: Lois Voss MD PATIENT NAME: Frank Rivera DATE: January 28, 2018 TIME: 3:57 PM PAGER/CONTACT #: [phone] GASA + ALL Collected: 01/28/2018 Status: F Source: [facility] 3:01 PM [facility] USE ONLY REPOSITORY TYPE CODE TESTS RESULT OUT OF REFERENCE UNITS RANGE LAB PH 7.35-7.45 pH 7.35 LAB PCO2 34-46 mm Hg pCO2 High 50 LAB PO2 85-95 mm Hg pO2 Low 74 LAB BE mmol/L Base Excess 1 LAB HCO3 22-26 mmol/L Bicarbonate High 27 LAB CO2CT 22.0-28.0 mmol/L CO2 Content 28 LAB O2HB 95-98 % Oxyhemoglobin, Low Art. 92 LAB COHB 0-5.0 % Carboxyhemoglobin, 2.1 Art LAB MHGB 0.4-1.5 % Methemoglobin 0.7 LAB TEMP C Temperature, Body 37.0 LAB PHTC 7.35-7.45 pH, Temp Corrected 7.35 LAB PCO2T 34-46 mm Hg pCO2, Temp High Correct 50 LAB PO2T mm Hg pO2, Temp Corrected 74 LAB NAB 135-146 mmol/L Sodium,Whole Low Bld 134 LAB KWB 3.5-5.0 mmol/L Potassium, Whole Bld 4.2 LAB HGBB 13.0-17.0 g/dL Low Hemoglobin,Total,A 8.7 CL LAB HCTB 39.0-51.0 % Hematocrit, Low ACL 27 LAB IC 1.08-1.30 mmol/L Calcium, Ion, WB 1.21 LAB GLB 60-105 mg/dL Glucose,Whole Bld 82 LAB LACT 0.5-2.2 mmol/L Lactate 0.6 LAB ACBDTE Notify Date, Art [id number] LAB ACBTME Notify Time, Art 210031 Performed By: #### ALLBG #### [facility] [address] [place], [place] [address] CONSULT Observed: 01/28/2018 Status: COMPLETED Source: [facility] 8:25 AM [facility] REPOSITORY HNO ID: [id number] Author: Mark Jacobs Service: Thoracic Surgery Author Type: Resident Type: Consults Filed: 01/28/2018 8:27 AM Note Text: [facility] THORACIC SURGERY CONSULT PROGRESS NOTE Frank Rivera [id number] PRIMARY SERVICE: Hvi Card Surg B HOSPITAL DAY: # 35 INTERVAL HISTORY No acute events overnight Vitals stable. On 2-3 L NC H/H responded to 1 U RBC yesterday. PHYSICAL EXAM BP 135/88 Pulse 80 Temp 36.7 ?C (98.1 ?F) (Oral) Resp 16 Ht 193 cm (6' 4) Wt 106.9 kg (235 lb 9.6 oz) SpO2 94% BMI 28.68 kg/m? Constitutional: no acute distress Resp: decreased R BS Cardiovascular: regular rate and rhythm GI: soft, non-tender to palpation Neurological/Psychiatric: oriented, no gross focal neurologic deficits DATA Recent Labs 01/28/1830901/27/1834001/26/18 0403 WBC 3.91 3.88 4.10 HB 8.6* 8.0* 8.4* HCT 27.0* 24.6* 26.4* PLT 95* 80* 88* Recent Labs 01/28/1830901/27/1834001/26/18 0403 NA 132* 132* 133* K 4.5 4.7 4.5 CO2 27 26 30 BUN 13 18 13 CREAT 3.81* 4.51* 3.58* GLUC 79 72* 82 IMAGING I personally reviewed: CXR ASSESSMENT AND PLAN 62 year old male with atrial fibrillation (previously on apixaban), hypertension, prior CVA with residual dysphagia, and h/o RYGB in 1995 c/b recurrent GI bleeds, who is now s/p redo sternotomy, AVR with homograft, TV repair, and placement of epicardial leads for prosthetic valve endocarditis on 01/19, now with R pleural effusion / hemothorax. - plan for R VATS washout today Mark Jacobs MD Cardiothoracic Surgery PGY2 Thoracic Consult Pager: [phone] CBC Collected: 01/28/2018 Status: F Source: [facility] 3:10 AM [facility] REPOSITORY TYPE CODE TESTS RESULT OUT OF REFERENCE UNITS RANGE LAB WBC 3.70-11.00 k/uL WBC 3.91 LAB RBC 4.20-6.00 m/uL Low RBC 2.83 LAB HGB 13.0-17.0 g/dL Low Hemoglobin 8.6 LAB HCT 39.0-51.0 % Low Hematocrit 27.0 LAB MCV 80.0-100.0 fL MCV 95.4 LAB MCH 26.0-34.0 pG MCH 30.4 LAB MCHC 30.5-36.0 g/dL MCHC 31.9 LAB RDWCV 11.5-15.0 % RDW-CV High 18.9 LAB PLTCT 150-400 k/uL Low Platelet Count 95 Result Comment: No clot detected. LAB MPV 9.0-12.7 fL MPV 9.7 LAB ABSNUC <0.01 k/uL Absolute nRBC <0.01 Performed By: #### CBC, CMP #### [facility] [address] [place], [place] [address] COMP METABOLIC PANEL Collected: 01/28/2018 Status: F Source: [facility] 3:10 AM [facility] REPOSITORY TYPE CODE TESTS RESULT OUT OF REFERENCE UNITS RANGE LAB TP 6.3-8.0 g/dL Protein, Total 6.5 LAB ALB 3.9-4.9 g/dL Low Albumin 2.3 LAB CA 8.5-10.2 mg/dL Low Calcium, Total 8.1 LAB TBIL 0.2-1.3 mg/dL Bilirubin, Total 0.5 LAB ALKP 38-113 U/L Alkaline Phosphatase 112 LAB AST 14-40 U/L AST 19 LAB GLU 74-99 mg/dL Glucose 79 Result Comment: The [place] Diabetes Association (ADA) provides guidance for cutoff values for fasting glucose and random glucose. The ADA defines fasting as no caloric intake for at least 8 hours. Fas ting plasma glucose results between 100 to 125 mg/dL indicate increased risk for diabetes (prediabetes). Fasting plasma glucose results greater than or equal to 126 mg/dL meet the criteria for diagnosis of diabetes. In the absence of unequivocal hyperglycemia, results should be confirmed by repeat testing. In a patient with classic symptoms of hyperglycemia or hyperglycemic crisis, random plasma glucose results greater than or equal to 200 mg/dL meet the criteria for diagnosis of diabetes. Reference: Standards of Medical Care in Diabetes 2016, [place] Diabetes Association. Diabetes Care. 2016.39(Suppl 1). LAB BUN 9-24 mg/dL BUN 13 LAB CRET 0.73-1.22 mg/dL Creatinine High 3.81 LAB NA 136-144 mmol/L Low Sodium 132 LAB K 3.7-5.1 mmol/L Potassium 4.5 LAB CL 97-105 mmol/L Chloride 98 LAB CO2 22-30 mmol/L CO2 27 LAB AGAP 9-18 mmol/L Low Anion Gap 7 LAB ALT 10-54 U/L ALT 13 LAB GFRAA eGFR- Amer. 20 LAB GFRNAA . eGFR-All Other Races 16 Result Comment: eGFR (Estimated GFR) Units of measure: mL/min/1.73 meters squared eGFR is derived from the reexpressed MDRD Study equation using the following parameters: serum creatinine, age, gender and race. The creatinine assay has been calibrated to be traceable to IDMS. An eGFR <60 mL/min/1.73m2 for >3 months is consistent with chronic kidney disease. Refer to KDOQI guidelines for clinical interpretation. In patients with unstable renal function, e.g. those with acute kidney injury, the eGFR may not accurately reflect actual GFR. Performed By: #### CBC, CMP #### [place] [address] OPERATIVE NO Observed: 01/28/2018 Status: COMPLETED Source: [facility] 12:00 AM [facility] REPOSITORY HNO ID: [id number] Author: Rocco Angulo Service: Thoracic Surgery Author Type: Physician Type: Operative Report Filed: 02/01/2018 2:55 PM Note Text: [facility] - Cardiothoracic Operative Report [address] [place] [address] [place] MIGUEL FRANK : 1955 AGE: 62. SEX: M PATIENT TYPE: I [facility] [place] LOCATION: [id number] ATTENDING PHYSICIAN: Rocco Angulo M.D. CSN NUMBER: [id number] DATE OF SURGERY/PROCEDURE: 01/28/2018 INCISION/PROCEDURE START TIME: 1445. INCISION CLOSE/PROCEDURE END TIME: 1612. PREOPERATIVE DIAGNOSIS: Right hemothorax. POSTOPERATIVE DIAGNOSIS: Right hemothorax. SURGEON: Rocco Angulo M.D. METER TESTER PRIMARY: 1. Lois Voss M.D. 2. Gopal Farmer SURGERY/PROCEDURE: Right VATS total decortication with evacuation of clot. ANESTHESIA: General endotracheal. OPERATIVE INDICATIONS: The patient is a 62-year-old gentleman with a complex history including atrial fibrillation on anticoagulation, hypertension, prior CVA with dysphagia, history of a Min-en-Y gastric bypass in 1995 complicated by recurrent GI bleeds, who presented to us following a redo sternotomy with AVR homograft, TV repair, and epicardial leads with a right hemothorax. There was a significant dense component to it in his chest on CT scan. Thus, I did not feel simple chest tube was going to successfully evacuate the fluid material in his chest. We thus recommended the VATS and the patient/family consented. DESCRIPTION OF PROCEDURE: After informed consent was assured, the patient was brought to the operating room and placed in the supine position on operating table. A huddle was performed. General endotracheal anesthesia induced. Additional IV access, Herring catheter, radial, and arterial line placed. The patient was turned in left lateral decubitus position and right chest wall was prepped and draped in usual sterile fashion. We began with an infrascapular trocar site, coming down through subcutaneous tissue and muscle with Bovie electrocautery, and entering the chest bluntly. We created a space for a second trocar, insufflated the chest, and evacuated thick manjeet colored bloody fluid from the chest. There was a large intrafissural component of clot requiring debridement. To evacuate with this debrided, we then spent time irrigating the chest and mobilizing the lung. We took down adhesions, brought up the inferior pulmonary ligament, and performed a decortication of the lower lobe where there was a fibrotic restriction. Once this was complete, we placed a #28 straight chest tube and #19 Darryn, re-expanded the lung after assuring hemostasis, and removed the thoracoscope. The wounds were then closed with multilayer Vicryl closure, culminating 4-0 Vicryl suture running subcuticular suture, and Steri-Strips for the skin. The patient was subsequently extubated in the operating room and transferred to recovery room in stable condition. All counts were reported correct at the end of the case. I was present and participating throughout the entire procedure excluding soft tissue closure, which was completed by Gopal Farmer and Dr. Lois Voss under my indirect supervision. ESTIMATED BLOOD LOSS: 5 mL. DRAINS: Include one #28 straight chest tube and one #19 Darryn. SPECIMENS: No specimens. IMPLANTS: No implants. Rocco Angulo M.D. DR:[id number] /[id number] cc: THERAPY NT Observed: 01/27/2018 Status: COMPLETED Source: [facility] 4:32 PM [facility] RE[facility] HNO ID: [id number] Author: Cecilia Watson/Hanny Gonzales Service: Occupational Therapy Author Type: Occupational Therapist Type: Therapy (PT/OT/Speech/Resp) Filed: 01/27/2018 4:33 PM Note Text: OCCUPATIONAL THERAPY MISSED VISIT SERVICE DATE: 01/27/2018 SERVICE TIME: 1113 to 1113 ROOM: [place] [address] Attempted Treatment. Patient not seen due to Test/Procedure, patient off floor. Will follow up as able. SIGNATURE: Cecilia Gonzales OT/Jenni PATIENT NAME: Frank Rivera DATE: January 27, 2018 TIME: 4:32 PM PROTIME Collected: 01/27/2018 Status: F Source: [facility] 3:02 PM [facility] REPOSITORY TYPE CODE TESTS RESULT OUT OF RANGE REFERENCE UNITS LAB PSEC 9.7-13.0 sec High PT Sec 13.8 LAB INR 0.9-1.3 PT INR 1.3 Result Comment: Vitamin K Antagonist (VKA) Therapeutic Range: INR 2 to 3 (Target INR of 2.5) Note: For patients treated with VKA drugs, such as warfarin, the [place] [employer] 2012 Guideline recommends a therapeutic INR range of 2 to 3 (target INR of 2.5). This recommendation includes high-risk patients with antiphospholipid syndrome with previous arterial or venous thromboembolism, current-generation mechanical or bioprosthetic aortic heart valve replacement. Note: Patients with mechanical aortic valve replacement and additional risk factors for thromboembolic events (atrial fibrillation, previous thromboembolism, LV dysfunction, hypercoagulable conditions) or an older generation mechanical AVR (i.e., ball in-Cage) or any mechanical MVR should have a INR therapeutic range of 2.5 to 3.5 (target INR of 3). Milo GH, et al. Chest 2012, 141:7S-47S Mateo RA, et al. [facility] 2017, 70: 252-289 Performed By: #### PT, PTT #### [facility] [address] [place] [address] APTT Collected: 01/27/2018 Status: F Source: [facility] 3:02 PM [facility] REPOSITORY TYPE CODE TESTS RESULT OUT OF RANGE REFERENCE UNITS LAB APTT 23.0-32.4 sec High APTT 33.8 Result Comment: Unfractionated Heparin Therapeutic Ranges: Standard Heparin Nomogram: 53 to 78 seconds (anti-Xa level of 0.3 to 0.7 U/ml) Low Dose/ACS Nomogram: 49 to 67 seconds (anti-Xa level of 0.2 to 0.5 U/ml) Stroke Treatment Nomogram: 49 to 67 seconds (anti-Xa level of 0.2 to 0.5 U/ml) Note: The APTT therapeutic range has been determined for the current lot of laboratory APTT reagent in use throughout the [facility]. Performed By: #### PT, PTT #### [facility] [employer] [address] [place], [place] [address] TYPE AND SCREEN Collected: 01/27/2018 Status: F Source: [facility] 3:01 PM [facility] REPOSITORY TYPE CODE TESTS RESULT OUT OF REFERENCE UNITS RANGE LAB %ABR A ABO/RH(D) POSITIVE LAB % Antibody NEG Screen Performed By: #### TSCR #### [facility] [employer] [address] [place], [place] [address] CASE MANAGEM Observed: 01/27/2018 Status: COMPLETED Source: [facility] 1:41 PM [facility] REPOSITORY HNO ID: [id number] Author: Faith (Rn) DIEUDONNE Akins Service: Care Management Author Type: Registered Nurse Type: Care Mgt Progress Note Filed: 01/27/2018 1:45 PM Note Text: CARE MANAGEMENT PROGRESS NOTE SERVICE DATE: 01/27/2018 SERVICE TIME: 1:40 PM LOS: 34 days Needs Prior to Discharge: Facility or Agency Choices;Home Care Order;Accepting Facility Procedure Needed: outpatient dialysis Met with pt, parents at bedside. Mother had questions regarding SNF. Explained that [facility] SN[facility] not willing to accept pt on dialysis per Dione. Pt also does not meet criteria for SNF at this time for insurance authorization. Pt has walked 600 ft with PT and has navigated some stairs, PT recommendation is for home with no additional services. Pt has iv atbx q24 written for discharge. Explained that CM would set up HIP and HHC to assist with home atbx with the understanding that pt or family would learn the administration of atbx. Verbalized understanding. At this time pt is not medically ready for discharge as Thoracic surgery was discussing need for another procedure with pt. CM will continue to follow Chelle Marrero is assisting with setting up outpt dialysis in [place] and per Chelle currently awaiting insurance authorization. SIGNATURE: Faith Akins RN PATIENT NAME: Frank Rivera DATE: January 27, 2018 TIME: 1:41 PM PAGER/CONTACT #: [phone] CNDS Observed: 01/27/2018 Status: COMPLETED Source: [facility] 1:25 PM [facility] REPOSITORY HNO ID: [id number] Author: Adryan Rubalcava Service: Cardiac Surgery Author Type: Nurse Practitioner Type: Discharge Summaries Filed: 02/04/2018 4:31 PM Note Text: Department of Cardiothoracic Surgery Discharge Summary PATIENT NAME: Frank Rivera ADMISSION DATE: 12/24/2017 DISCHARGE DATE: 02/04/2018 Attending Physician/Surgeon: Elmer Alarcon Primary Service: Hvi Card Surg B Code Status: Prior [facility] Primary [employer] Mixer: Dr. 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 AV block 1 and permanent pacemaker Reason for Hospitalization: The patient is a 62-year-old gentleman, who had aortic valve replacement in May of this year. Immediately, after the procedure, he also got pacemaker. He now shows up with prosthetic valve endocarditis. He has vegetations on the valve and some paravalvular leak. He had no coronary artery disease in May and we have not repeated the cardiac catheterization. He also has moderate tricuspid regurgitation. Operations during Hospitalization: Reoperation second open- heart surgery. Aortic valve with root debridement and replacement with 26- mm aortic homograft. Tricuspid valve repair according to Gretta. Removal of pacemaker and permanent leads and placement of new epicardial leads on RV, LV, and right atrium and implantation of a new pacemaker. 01/28 VATS washout/decortication Hospital Course: * How was the Reason for Hospitalization Addressed: Indication for Surgery: Infective endocarditis of aortic valve Preop LVEF: Normal RVF: mild Postop LVEF: Normal RVF: mild ECG: Paced CARDS: Can be anyone PMH/PSH: Aortic Stenosis s/p bioprosthetic AVR (27mm St. Richi Trifecta pericardial valve) and RUDY ligation 05/07/17, Atrial fibrillation /p PPM and DCCV in 04/2017 HTN ,Hypothyroidism,, Hx of CVA with residual dysphagia, Hx of Min-En-Y bypass in 1995, Hx of Upper GI bleeds (1997, 2014, 2015) Preop Hosp Course: 62y/o gentleman with atrial fibrillation and SSS s/p PPM, HTN, hypothyroidism, aortic stenosis s/p AVR and RUDY, history of Min-en-Y bypass c/b recurrent GIB, ADRIANNE, B12 deficiency, who presents to [facility] on 12/24/17 with fatigue and shortness of breath who was transferred from OSH with IRINA and renal biopsy concerning for C3 nephropathy. MICU transfer to initiate dialysis secondary to volume overload. CHANDRAKANT 01/01 showed AV vegetation. Airway Difficulty: Grade II - No special instrumentation Pacing Wires: No Chronological List of Surgeries and Major Events (Diagnosis): (Surgeries in bold characters) 01/19/2018: Prosthetic aortic valve explant, Homograft implant as valve/root/ascending aorta and reimplantation of coronary buttons. Explant of right atrial and right ventricular endocardial leads and explant of generator left upper pectoral area. Implant of epicardial leads on right atrium, right ventricule and left ventricle. Pacemaker generator insertion left pre-rectus sheath 01/28/18 Right VATS, washout and hematoma evacuation, decortication A/P of Major Active Problems (excluding routine care and common problems): -S/p reimplantation PPM. Formal device check done 01/25 and 01/28-Underlying SR in 30's -Endocarditis.Bartonella positive. ID following. On Rocephin QD/Doxycycline. RCW SYLVIA catheter intact. COPAT done. -Hx of Afib. On eliquis preop. Pacer check showed no AT/AF. -Mod right pleural effusion per CXR on 01/22-wastapped on the right with 850cc out. Chest CT per Dr. Alarcon. CT showed right moderate hemothorax. 01/28 VATS washout done per thoracic team-1 Liter of old blood and clots removed-drains removed per Thoracic. Thoracic signed off. Stable on RA. CXR stable. -IRINA-IHD MWF. RCW permacath intact. IHD done today. Plan for IHD Thursday. set up for Thursday session in hometown [place]. Nephro continue to follow -Anemia- Improving. No signs/symptoms of active bleeding. On Aranesp. Received 1 unit PRBC 01/28 and01/30. Today H/H 9.2/29.6 -Hypotension-Carvedilol on hold. Started on Midodrine 01/30 d/t SBP in 80's. Dose decreased 02/01. Frequency changed to BID today. Continue to wean as tolerated. -From [place], [place]. PT recs home. F2F done for IV therapy. DC today. Plans to follow up with home PCP and [facility] [employer] (requested). 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 - Tubular atrophy and interstitial fibrosis, mild. FINAL DIAGNOSIS BONE MARROW, ASPIRATE SMEARS, CORE BIOPSY AND CLOT SECTION WITH PERIPHERAL BLOOD SMEAR (B18-17, [facility], [place], [place]; 12/22/17): - NORMOCELLULAR MARROW (40%) WITH TRILINEAGE HEMATOPOIESIS. - MILD INCREASE IN POLYTYPIC PLASMA CELLS. - NORMOCYTIC ANEMIA AND THROMBOCYTOPENIA FINAL DIAGNOSIS 1. Aortic valve, excision (A) ?Bovine-pericardium bioprosthetic valve with acute inflammation and focal calcification. See comment. 2. Aorta, partial excision (B) - Elastic-type artery with mild increase of mucopolysaccharide material and adventitial fibrosis. 3. veneer grader, unspecified site, removal (C) - Unremarkable [employer] pacemaker and leads * Hospital Course Complicated by: Hemothorax requiring VATS procedure. * Extended Hospital Stay Due to: IHD treatments, Endocarditis treatment, and Hemothorax requiring VATS procedure * Specific Medication Changes: see discharge medication list * Pain: Adequately controlled on discharge * Surgical Incisions/Wounds: Well approximated. No drainage or erythema * Patient Condition at Discharge: Improved * Disposition: Home with Home Health Care Problem List: Patient Active Hospital Problem List: Intravenous catheter in place (12/24/2017) Transition of care performed with sharing of clinical summary (01/23/2018) Subacute bacterial endocarditis (01/07/2018) Atrial fibrillation (HCC) (12/26/2017) HTN (hypertension) (12/26/2017) Pain, postoperative, acute (01/19/2018) IRINA (acute kidney injury) (HCC) (12/24/2017) Discharge planning issues (01/27/2018) Consults: Nephrology, Infectious Disease, Hematology, Thoracic Surgery Procedures Performed and Major Radiology: Echocardiogram, CT Chest, Sylvia catheter placement, VATS procedure, CTA of Head and Neck, Brain, Abd/pelvis, Lower extremity vein mapping, US spleen/abdomen, Pacemaker device check Information Provided to the Patient: Patient given copy of After Visit Summary which included activity instructions, diet instructions, wound care instructions, medication instructions and follow up appointment ALLERGIES Allergen Reactions - Penicillin Hives Discharge Medications: Discharge Medication List as of 02/04/2018 2:52 PM START taking these medications acetaminophen (TYLENOL) 325 mg tablet Take 1-2 tablets by mouth every 4 hours as needed for Pain (for mild to moderate pain). Normal, Disp-40 tablet, R-0 aspirin 81 mg chewable tablet Take 2 tablets by mouth once daily. Normal, Disp-108 tablet, R-0, Long-term carvedilol (COREG) 3.125 mg tablet Take 1 tablet by mouth twice daily with meals. Normal, Disp-180 tablet, R-0, Long-term cefTRIAXone (ROCEPHIN) 2 g in D5W 100 mL MB+ Inject 100 mL intravenously every 24 hours. Med Update cholecalciferol 3,000 unit tab Take 1 tablet by mouth once daily. Normal, Disp-120 tablet, R-0, Long-term Darbepoetin Tereza In Polysorbat (ARANESP) 60 mcg/0.3 mL syrg Inject 0.3 mL subcutaneously once each week. Med Update, Long-term doxycycline hyclate (VIBRAMYCIN) 100 mg capsule Take 1 capsule by mouth every 12 hours for 26 days. Normal, Disp-52 capsule, R-0 oxyCODONE IR (ROXICODONE) 5 mg immediate release tablet Take 1 tablet by mouth every 6 hours as needed for Pain (for severe pain) for up to 7 days. Print RX, Disp-28 tablet, R-0 Dx: 1. Pain, postoperative, acute thiamine (VITAMIN B1) 100 mg tablet Take 1 tablet by mouth once daily. Normal, Disp-90 tablet, R-0, Long-term CONTINUE these medications which have CHANGED pantoprazole DR (PROTONIX) 20 mg tablet Take 1 tablet by mouth once daily. Med Update, Long-term CONTINUE these medications which have NOT CHANGED atorvastatin (LIPITOR) 80 mg tablet Take 80 mg by mouth once daily. Historical Med, Long-term levothyroxine (LEVOXYL) 200 mcg tablet Take 200 mcg by mouth daily before breakfast. Historical Med, Long-term cyanocobalamin (VITAMIN B-12) 100 mcg tab Take 500 mcg by mouth once daily. Historical Med, Long-term STOP taking these medications hydrALAZINE (APRESOLINE) 25 mg tablet Comments: Reason for Stopping: ascorbic acid-ascorbate sodium 500 mg chew Comments: Reason for Stopping: magnesium oxide 200 mg magnesium tab Comments: Reason for Stopping: metoprolol tartrate, short acting, (LOPRESSOR) 25 mg tablet Comments: Reason for Stopping: ferrous sulfate 325 mg (65 mg iron) tablet Comments: Reason for Stopping: predniSONE (DELTASONE) 20 mg tablet Comments: Reason for Stopping: apixaban (ELIQUIS) 5 mg tab(s) Comments: Reason for Stopping: Transitions of Care Critical Issues: Outpatient Management: * Are there important medication changes and/or outstanding issues that need to be addressed: CV fluid volume overload * What is the plan for follow up: hemodialysis MWF Future Appointments: Future Appointments Date Time Provider Department Center 02/24/2018 12:45 PM [id number] MORA [facility] (MAIN - 02/24/2018 12:45 PM [id number] KATZ [facility] (MAIN - 03/05/2018 12:00 PM [id number] MAIN LBJ1-4 CARD J BLD 03/05/2018 12:15 PM [id number] MAIN [id number] CARD J D 03/05/2018 12:45 PM 6000-DEVICE CLINIC CARDMN CARD J BLD 03/05/2018 1:30 PM [id number] ECHO J3-5 PERVMN VASM J/S Bld 03/05/2018 3:00 PM 6131-WILVER BERRY CARD J BLD 03/05/2018 3:00 PM 6131WILVER YOUNGMJ2 CARD J BLD Highest Readmission Risk Score: 47 The 30 day readmissions risk score is derived from an internally validated risk model which evaluates patient level characteristics, utilization history, medication orders and lab results up until the day of discharge. Patients with a score of 40 or above are considered highest risk for readmission. Specific patient level drivers will be listed at the bottom of the summary. This patient?s risk for 30-day readmission is determined using the following contributing drivers Pt variables contributing to increased readmission risk: 31 Active Medication Orders 18 Most Recent BUN Result 8.2 First Resulted Calcium During Admission 1 Insurance - Private Coverage 1 History of Anemia 1 Active Anticoagulant Electronically SIGNED by Licensed Independent Practitioner: Adryan Rubalcava APRN.CNP PROGRESS Observed: 01/27/2018 Status: COMPLETED Source: [place] 1:20 PM [facility] REPOSITORY O ID: [id number] Author: Adryan Rubalcava Service: Cardiac Surgery Author Type: Nurse Practitioner Type: Progress Notes Filed: 01/27/2018 1:22 PM Note Text: [facility] POSTOP PROGRESS NOTE Day of Surgery:01/19/2018 S/P SURGERY: Reoperation second open-heart surgery. Aortic valve with root debridement and replacement with 26-mm aortic homograft. Tricuspid valve repair according to Gretta. Removal of pacemaker and permanent leads and placement of new epicardial leads on RV, LV, and right atrium and implantation of a new pacemaker. INTERVAL EVENTS / PERTINENT ROS: Uneventful night Left CT removed yesterday Chest CT showed right moderate hemothorax Scheduled for dialysis today Rhythm: AV paced Intake/Output Summary (Last 24 hours) at 01/27/18 1320 Last data filed at 01/27/18 1200 Gross per 24 hour Intake 230 ml Output 3100 ml Net -2870 ml EKG: most recent image reviewed, most recent report reviewed TELE: most recent recordings reviewed CXR: most recent image reviewed, most recent report reviewed Echocardiogram: most recent report reviewed PHYSICAL EXAM: BP 130/88 Pulse 79 Temp 36.8 ?C (98.2 ?F) (Oral) Resp 18 Ht 193 cm (6' 4) Wt 109.6 kg (241 lb 11.2 oz) SpO2 95% BMI 29.42 kg/m? Neuro: AANDO x 3 moves all extremities with no apparent weakness CV: no jugular venous distention Heart Exam: RRR without murmur, gallop, or rubs. No ectopy. Resp: clear to auscultation bilaterally Abd: The abdomen is soft, nontender, nondistended; BS normal; no masses or organomegaly noted. Skin: Skin color, texture, turgor normal, no suspicious rashes or lesions Ext: Trace edema Surgical incisions: clean, dry and intact Chest tube: No Pacer wires: No. HISTORY, ASSESSMENT AND PLAN: Problem Transition of Care Performed With Sharing of Clinical Summary Indication for Surgery: Infective endocarditis of aortic valve Preop LVEF: Normal RVF: mild Postop LVEF: Normal RVF: mild PMH/PSH: Atrial fibrillation /p PPM and DCCV in 04/2017 on apixaban 5mg BID on metoprolol 12.5mg BID, HTN ,Hypothyroidism, Aortic Stenosis s/p bioprosthetic AVR (27mm St. 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 MICU transfer to initiate dialysis secondary to volume overload. CHANDRAKANT 01/01 showed AV vegitation. Airway Difficulty: Grade II - No special instrumentation Pacing Wires: No Chronological List of Surgeries and Major Events (Diagnosis): (Surgeries in bold characters) 01/19/2018: Prosthetic aortic valve explant, Homograft implant as valve/root/ascending aorta and reimplantation of coronary buttons Explant of right atrial and right ventricular endocardial leads and explant of generator left upper pectoral area Implant of epicardial leads on right atrium, right ventricule and left ventricle Pacemaker generator insertion left pre-rectus sheath A/P of Major Active Problems (excluding routine care and common problems): -s/p reimplantation PPM. Formal device check done 01/25 -endocarditis. ID following. On Rocephin QD. RCW SYLVIA catheter intact -Hx of afib. On eliquis preop. Recent pacer check showed no AT/AF. Discuss resumption of eliquis once hemothorax resolved. -mod right pleural effusion per cxr. Was tapped on the right with 850cc on 01/22. Chest CT per Dr. Alarcon. CT showed right moderate hemothorax. Consult thoracic for possible chest tube/pigtail/tPA per Dr. Alarcon. -IRINA. RCW permacath intact. Scheduled for dialysis today. nephro continue to follow -from [place], [place]. PT recs home. No DC date yet. 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 WBC 3.8. afebrile Plan: Continue ABx per ID Atrial Fibrillation (Hcc) History: Hx post op AF, S/P DCC 06/07. On Apixaban and BB pre-op. Assessment: V paced on telemetry. No AF/AT per recent pacer check Plan: Continue Coreg- now optimal dose. Home med Apixaban - discuss with CTS regarding AC. Htn (Hypertension) History: on hydralazine, lopressor at home Assessment: [id number] Plan: Continue coreg Pain, Postoperative, Acute History: postop Assessment: reports pain is controlled Plan: Optimize pain control w/ scheduled Lidoderm patches and Tylenol, prn Oxycodone Irina (Acute Kidney Injury) (Hcc) History: started dialysis 12/27/17. permacath dialysis access Assessment: Scr 4.51. oliguric Plan: Plan for next session IHD today. Renal following. Discharge Planning Issues -from [place], [place]. PT recs home. No DC date yet. DAILY STEP DOWN CHECKLIST FOR CATHETER RELATED INFECTION PREVENTION CVC, PICC, Sylvia and/or Permacath present? Yes - Sylvia - needed for IV antibiotics Does the patient have a urinary catheter beyond POD 2? No VTE Risk Assessment: High risk VTE Mechanical and/or Pharmacologic Prophylaxis: IPC Device, GCS and Subcutaneous Heparin Labs and medications reviewed in Epic Case discussed in depth with: Dr King SIGNATURE: Adryan Rubalcava APRN.RAJINDER PATIENT NAME: Frank Rivera DATE: January 27, 2018 TIME: 1:21 PM PAGER/CONTACT #: [phone] ETX#[id number] CONSULT Observed: 01/27/2018 Status: COMPLETED Source: [place] 11:06 AM [facility] REPOSITORY HNO ID: [id number] Author: Rocco Angulo Service: Thoracic Surgery Author Type: Physician Type: Consults Filed: 02/01/2018 8:50 AM Note Text: [facility] THORACIC SURGERY CONSULT NOTE Frank Rivera [phone] Requesting Provider: Cardiac Surgery Cardiothoracic Physician: Rocco Angulo MD Admit Date: 12/24/2017 LOS : 34 Chief Complaint: R hemothorax / effusion HPI: Frank Rivera is a 62 year old male with atrial fibrillation (previously on apixaban), hypertension, prior CVA with residual dysphagia, and h/o RYGB in 1995 c/b recurrent GI bleeds, who is now s/p redo sternotomy, AVR with homograft, TV repair, and placement of epicardial leads for prosthetic valve endocarditis, now with R pleural effusion / hemothorax. No remaining drains. Not on anticoagulation. Developing R sided effusion for the past few days s/p thoracentesis on 01/22 with removal of [address] chest on 01/26 with moderate loculated R hemothorax. Vitals stable. Currently on 2 L NC. H/H stable. Last transfusion was on 01/25. Location: right Quality: acute Severity: moderate Associated signs and symptoms: SOB Unintentional weight loss over last 3 months: No PAST MEDICAL HISTORY: PAST MEDICAL HISTORY Diagnosis Date - Aortic stenosis - Atrial fibrillation (HCC) - CAD (coronary artery disease) of bypass graft - CVA, old, dysphagia - Heyd's syndrome (HCC) - History of Min-en-Y gastric bypass - HTN (hypertension) - Hx of sick sinus syndrome PAST SURGICAL HISTORY: PAST SURGICAL HISTORY Procedure Laterality Date - CARPAL TUNNEL - DIALYSIS CATHETER PROCEDURE (W NOTE) 12/27/2017 - GASTRIC BYPASS, MIN-EN-Y 1996 - PERCUT AORTIC VALVE REPLACE 05/07/2017 FAMILY HISTORY: FAMILY HISTORY Problem Relation Age of Onset - Ischemic Heart Disease Mother - other (hypothyroidism) Mother - Ischemic Heart Disease Father - Thyroid Cancer Sister SOCIAL HISTORY: Social History Substance Use Topics - Smoking status: Current Every Day Smoker Types: Cigars, Cigarettes - Smokeless tobacco: Not on file Comment: States he quit cigarretes years ago 25 yr ppd previously, last had cigar in october - Alcohol use No MEDICATIONS: Prior to Admission Medications: atorvastatin (LIPITOR) 80 mg tablet Take 80 mg by mouth once daily. hydrALAZINE (APRESOLINE) 25 mg tablet Take 25 mg by mouth every 8 hours. ascorbic acid-ascorbate sodium 500 mg chew Take 500 mg by mouth once daily. levothyroxine (LEVOXYL) 200 mcg tablet Take 200 mcg by mouth daily before breakfast. magnesium oxide 200 mg magnesium tab Take 2 tablets by mouth once daily. metoprolol tartrate, short acting, (LOPRESSOR) 25 mg tablet Take 12.5 mg by mouth twice daily. ferrous sulfate 325 mg (65 mg iron) tablet Take 325 mg by mouth daily with breakfast. pantoprazole DR (PROTONIX) 20 mg tablet Take 40 mg by mouth twice daily. cyanocobalamin (VITAMIN B-12) 100 mcg tab Take 500 mcg by mouth once daily. apixaban (ELIQUIS) 5 mg tab(s) Take 5 mg by mouth twice daily. predniSONE (DELTASONE) 20 mg tablet Take 60 mg by mouth once daily. ALLERGIES: ALLERGIES Allergen Reactions - Penicillin Hives Chemical Exposure: No Asbestos Exposure No COMPLETE REVIEW OF SYSTEMS Constitutional: No weight loss, malaise or fevers. HEENT: Negative for frequent or significant headaches Resp: Positive for shortness of breath on exertion Cardiovascular: Positive for chest pain GI: Negative for abdominal discomfort, blood in stools or black stools or change in bowel habits : No history of dysuria, frequency, or incontinence Musculoskeletal: Negative for joint pain or swelling, back pain or muscle pain Endo: Negative for cold or heat intolerance, polyuria, polydipsia and goiter Neurologic: No history or headaches, syncope, paralysis, seizures or tremors Integumentary: Negative for lesions, rash, and itching. Pain: Negative for pain, history of chronic pain, or current treatment for a chronic pain condition Additional systems reviewed: No additional systems reviewed PHYSICAL EXAM BP 121/79 Pulse 79 Temp 36.6 ?C (97.8 ?F) (Oral) Resp 18 Ht 193 cm (6' 4) Wt 109.6 kg (241 lb 11.2 oz) SpO2 92% BMI 29.42 kg/m? Neuro: AANDO x 3 moves all extremities with no apparent weakness CV: no jugular venous distention Heart Exam: RRR without murmur, gallop, or rubs. No ectopy. Resp: clear to auscultation bilaterally Abd: The abdomen is soft, nontender, nondistended; BS normal; no masses or organomegaly noted. Skin: Skin color, texture, turgor normal, no suspicious rashes or lesions Ext: Trace edema Surgical incisions: clean, dry and intact DATA: Laboratory: Recent Labs 01/27/1834001/26/183 01/25/18342 WBC 3.88 4.10 3.54* HB 8.0* 8.4* 7.3* HCT 24.6* 26.4* 22.7* PLT 80* 88* 96* Recent Labs 01/27/1834001/26/1840201/25/18342 NA 132* 133* 129* K 4.7 4.5 4.5 BUN 18 13 21 CREAT 4.51* 3.58* 4.65* GLUC 72* 82 81 Radiology: I have personally reviewed the following images/data: CT scan Impression: 62 year old male with atrial fibrillation (previously on apixaban), hypertension, prior CVA with residual dysphagia, and h/o RYGB in 1995 c/b recurrent GI bleeds, who is now s/p redo sternotomy, AVR with homograft, TV repair, and placement of epicardial leads for prosthetic valve endocarditis on 01/19, now with R pleural effusion / hemothorax. Plan: - plan for R VATS washout tomorrow - NPO p MN, preop labs ordered, consented SIGNATURE: Mark Jacobs MD PAGER: [phone] DATE of SERVICE: 01/27/2018 TIME of SERVICE: 11:06 AM [facility] STAFF PHYSICIAN NOTE OF PERSONAL INVOLVEMENT IN CARE IMPRESSION: Patient is a 62 year old male s/p redo sternotomy AVR with homograft, TV repair and placement of epicardial leads with a history of chronic anemia who has developed a postop hemorrhage in the right chest. I do not believe we can evacuate the material in his chest with a simple tube thus we have recommended proceeding with a VATS procedure. We have explained the risks/benefits, conduct of the operation and expected postop course including bleeding risk. The patient will require transfusion prior to surgery due to his anemia. PLAN: Right VATS decort I have reviewed the documentation obtained and documented by the Resident and have reviewed and updated the problem list as appropriate. I have personally performed a face to face assessment of the patient and have personally participated in the hernandez components. I have discussed the case and management of the patient's care. STAFF PHYSICIAN: Rocco Angulo MD DATE OF SERVICE: February 01, 2018 TIME OF SERVICE: 8:47 AM (doc for 01-28-18) CONSULT PROG Observed: 01/27/2018 Status: COMPLETED Source: [place] 8:54 AM [facility] REPOSITORY O ID: [id number] Author: Ray Conde MD Service: Nephrology Author Type: Physician Type: Consult Progress Note Filed: 01/27/2018 8:53 PM Note Text: CONSULT PROGRESS NOTE NEPHROLOGY SERVICE SERVICE DATE: 01/27/2018 SERVICE TIME: 8:46 PM Subjective INTERVAL HISTORY: no acute events reported. Patient seen on dialysis, tolerating treatment well. MEDICATIONS: Current hospital medications: senna-docusate 8.6-50 mg 1 tablet (SENNA-S) 1 tablet ORAL BID polyethylene glycol 3350 17 g packet (MIRALAX, GLYCOLAX) 17 g ORAL DAILY doxycycline hyclate 100 mg cap(s) (VIBRAMYCIN) 100 mg ORAL q 12 H ALPRAZolam 0.25 mg tab(s) (XANAX) 0.25 mg ORAL BID PRN 0.9% NaCl 3-5 mL 3-5 mL INTRAVENOUS q 12 H 0.9% NaCl 10 mL 10 mL INTRAVENOUS q 12 H aspirin 162 mg chewable tab(s) 162 mg ORAL DAILY potassium chloride ER 10-60 mEq tab(s) (K-DUR, KLOR-CON) 10- 60 mEq ORAL PRN therapeutic multivitamin 1 tablet tab(s) (THERA VITAMIN) 1 tablet ORAL DAILY WITH BREAKFAST pantoprazole DR 20 mg tab(s) (PROTONIX) 20 mg ORAL DAILY (6 AM) acetaminophen 650 mg tab(s) (TYLENOL) 650 mg ORAL q 4 H PRN bisacodyl 10 mg suppository (DULCOLAX) 10 mg RECTAL DAILY PRN sodium phosphate-sodium bisphosphate 133 mL enema (FLEET) 133 mL RECTAL PRN magnesium hydroxide 400 mg/5 mL 30 mL (MOM) 30 mL ORAL q 6 H PRN heparin 5,000 Units injection 5,000 Units SUBCUTANEOUS q 12 H Darbepoetin Tereza In Polysorbat 60 mcg injection (ARANESP) 60 mcg SUBCUTANEOUS q MON carvedilol 25 mg tab(s) (COREG) 25 mg ORAL BID w MEALS ondansetron (PF) 4 mg injection (ZOFRAN) 4 mg INTRAVENOUS q 6 H PRN lidocaine 5 % 1 Patch (LIDODERM) 1 Patch TRANSDERMAL DAILY lidocaine patch - REMOVE OTHER AT BEDTIME lidocaine - VERIFY PATCH OTHER q 8 H oxyCODONE IR 5-10 mg tab(s) (ROXICODONE) 5-10 mg ORAL/FEEDING TUBE q 6 H PRN cefTRIAXone 2 g in D5W 100 mL MB+ (ROCEPHIN) 2 g INTRAVENOUS q 24 H calcium carbonate 1,000 mg chewable tab(s) (TUMS) 1,000 mg ORAL/FEEDING TUBE BID PRN sodium chloride 0.65 % 2 [place] (AYR, OCEAN) 2 [place] EACH NOSTRIL TID PRN jarjrgzy-zoko-zebho acid chewable tablet (CENTRUM) 1 tablet ORAL DAILY cholecalciferol 3,000 Units tab(s) (VITAMIN D3) 3,000 Units ORAL DAILY cyanocobalamin 500 mcg tab(s) (VITAMIN B-12) 500 mcg ORAL DAILY thiamine 100 mg tab(s) (VITAMIN B1) 100 mg ORAL DAILY diphenhydrAMINE 25 mg (BENADRYL) 25 mg ORAL q 6 H PRN tamsulosin ER 0.4 mg cap(s) (FLOMAX) 0.4 mg ORAL DAILY levothyroxine 200 mcg tab(s) (SYNTHROID) 200 mcg ORAL BEFORE BREAKFAST DAILY atorvastatin 80 mg tab(s) (LIPITOR) 80 mg ORAL AT BEDTIME Objective PHYSICAL EXAM: BP 96/63 Pulse 79 Temp 36.7 ?C (98.1 ?F) (Oral) Resp 16 Ht 193 cm (6' 4) Wt 109.6 kg (241 lb 11.2 oz) SpO2 91% BMI 29.42 kg/m? Intake/Output Summary (Last 24 hours) at 01/27/182045 Last data filed at 01/27/181999 Gross per 24 hour Intake 731 ml Output 3050 ml Net -2319 ml Constitutional: No acute distress and Responsive Neck: Trachea midline No jugular venous distension Cardiovascular: Heart sounds: Rate: Normal Edema present: 2+ Respiratory: Normal respiratory effort. Lungs clear bilaterally. Abdomen: Soft, non-tender, non-distended. Normal bowel sounds. Psychiatric: Alert and oriented x self, place, time, and setting Normal mood/affect Vascular Access: Hemodialysis catheter location: Right Tunneled internal jugular. Exit site demonstrates: normal findings DATA: Diagnostic tests reviewed for today's visit: Most recent labs Recent Labs 01/27/18 0341 01/26/18 0403 01/25/18 0343 01/24/18 0600 01/23/18 0507 01/22/18 0100 NA 132* 133* 129* 134* 129* 130* K 4.7 4.5 4.5 4.6 4.9 4.8 CHLOR 94* 98 94* 95* 91* 95* CO2 26 30 27 28 22 27 BUN 18 13 21 17 29* 21 CREAT 4.51* 3.58* 4.65* 3.64* 4.97* 4.00* GLUC 72* 82 81 79 71* 90 ANION 12 5* 8* 11 16 8* CA 8.5 8.1* 8.2* 7.9* 7.9* 8.1* P 4.9* -- -- -- -- 4.7 MG -- -- -- -- -- 1.7 Recent Labs 01/27/18 0341 01/26/18 0403 01/25/18 0343 WBC 3.88 4.10 3.54* HB 8.0* 8.4* 7.3* HCT 24.6* 26.4* 22.7* PLT 80* 88* 96* Assessment/Plan 62 year old male with PMH including A-fibb, s/p AVR, history of CVA, Fe deficiency anemia and hemolytic anemia presented to [facility] as a transfer from OSH on 12/24. ?Initial presentation to OSH was due to suspected GI bleed. Patient was transferred to [facility] upon worsening of renal function. ?S/p MVR 01/19/18. ? Per Dr. Candelario's note from 12/30/17 Renal biopsy slides from outside hospital reviewed today with Dr. 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 No need for steroids. Need to get ID consult and PCR for Bartonella. Consider CHANDRAKANT. The patient may have infected pacer wires. ? PLAN 1. Remains dialysis dependant for now. 2. Will continue to improve his volume status with fluid removal at dialysis. 3. Next dialysis for Thursday. ? Ray Conde MD, ARVIN Moe Endowed Chair in Nephrology and Hypertension Research Cyber Systems Administratorgear and spline grinder [facility] [place] SIGNATURE: Ray Conde MD PATIENT NAME: Frank Rivera DATE: January 27, 2018 TIME: 8:46 PM PAGER: [phone] CBC Collected: 01/27/2018 Status: F Source: [place] 3:41 AM [facility] REPOSITORY TYPE CODE TESTS RESULT OUT OF REFERENCE UNITS RANGE LAB WBC 3.70-11.00 k/uL WBC 3.88 LAB RBC 4.20-6.00 m/uL Low RBC 2.62 LAB HGB 13.0-17.0 g/dL Low Hemoglobin 8.0 LAB HCT 39.0-51.0 % Low Hematocrit 24.6 LAB MCV 80.0-100.0 fL MCV 93.9 LAB MCH 26.0-34.0 pG MCH 30.5 LAB MCHC 30.5-36.0 g/dL MCHC 32.5 LAB RDWCV 11.5-15.0 % RDW-CV High 18.3 LAB PLTCT 150-400 k/uL Low Platelet Count 80 Result Comment: No clot detected. LAB MPV 9.0-12.7 fL MPV 9.3 LAB ABSNUC <0.01 k/uL Absolute nRBC <0.01 Performed By: #### CBC, CMP #### [facility] [address] [place] [address] COMP METABOLIC PANEL Collected: 01/27/2018 Status: F Source: [place] 3:41 AM [facility] REPOSITORY TYPE CODE TESTS RESULT OUT OF REFERENCE UNITS RANGE LAB TP 6.3-8.0 g/dL Protein, Total 6.5 LAB ALB 3.9-4.9 g/dL Low Albumin 2.1 LAB CA 8.5-10.2 mg/dL Calcium, Total 8.5 LAB TBIL 0.2-1.3 mg/dL Bilirubin, Total 0.4 LAB ALKP 38-113 U/L Alkaline Phosphatase 113 LAB AST 14-40 U/L AST 19 LAB GLU 74-99 mg/dL Low Glucose 72 Result Comment: The [place] Diabetes Association (ADA) provides guidance for cutoff values for fasting glucose and random glucose. The ADA defines fasting as no caloric intake for at least 8 hours. Fas ting plasma glucose results between 100 to 125 mg/dL indicate increased risk for diabetes (prediabetes). Fasting plasma glucose results greater than or equal to 126 mg/dL meet the criteria for diagnosis of diabetes. In the absence of unequivocal hyperglycemia, results should be confirmed by repeat testing. In a patient with classic symptoms of hyperglycemia or hyperglycemic crisis, random plasma glucose results greater than or equal to 200 mg/dL meet the criteria for diagnosis of diabetes. Reference: Standards of Medical Care in Diabetes 2016, [place] Diabetes Association. Diabetes Care. 2016.39(Suppl 1). LAB BUN 9-24 mg/dL BUN 18 LAB CRET 0.73-1.22 mg/dL Creatinine High 4.51 LAB NA 136-144 mmol/L Low Sodium 132 LAB K 3.7-5.1 mmol/L Potassium 4.7 LAB CL 97-105 mmol/L Low Chloride 94 LAB CO2 22-30 mmol/L CO2 26 LAB AGAP 9-18 mmol/L Anion Gap 12 LAB ALT 10-54 U/L ALT 11 LAB GFRAA eGFR- Amer. 16 LAB GFRNAA . eGFR-All Other Races 13 Result Comment: eGFR (Estimated GFR) Units of measure: mL/min/1.73 meters squared eGFR is derived from the reexpressed MDRD Study equation using the following parameters: serum creatinine, age, gender and race. The creatinine assay has been calibrated to be traceable to IDMS. An eGFR <60 mL/min/1.73m2 for >3 months is consistent with chronic kidney disease. Refer to KDOQI guidelines for clinical interpretation. In patients with unstable renal function, e.g. those with acute kidney injury, the eGFR may not accurately reflect actual GFR. Performed By: #### CBC, CMP #### [facility] [address] [place] [address] PHOSPHORUS Collected: 01/27/2018 Status: F Source: [place]ANO 3:41 AM [facility] REPOSITORY TYPE CODE TESTS RESULT OUT OF REFERENCE UNITS RANGE LAB PHOS 2.7-4.8 mg/dL High Phosphorus 4.9 Performed By: #### PHOS #### [facility] [address] [place], [place] [address] THERAPY NT Observed: 01/26/2018 Status: COMPLETED Source: [place] 4:12 PM [facility] REPOSITORY HNO ID: [id number] Author: Cecilia Watson/Hanny Gonzales Service: Occupational Therapy Author Type: Occupational Therapist Type: Therapy (PT/OT/Speech/Resp) Filed: 01/26/2018 4:12 PM Note Text: OCCUPATIONAL THERAPY MISSED VISIT SERVICE DATE: 01/26/2018 SERVICE TIME: 0932 to 0932 ROOM: [place] [address] Attempted Treatment. Patient not seen due to Declined due to nausea. Will follow up as able. SIGNATURE: JUAN DAVID Diaz PATIENT NAME: Frank Rivera DATE: January 26, 2018 TIME: 4:12 PM THERAPY NT Observed: 01/26/2018 Status: COMPLETED Source: [place] 2:36 PM [facility] REPOSITORY HNO ID: [id number] Author: Tianna MariePtJennifer Cabral Service: Physical Therapy Author Type: Physical Therapist Type: Therapy (PT/OT/Speech/Resp) Filed: 01/26/2018 2:38 PM Note Text: Physical Therapy Treatment SERVICE DATE: 01/26/2018 SERVICE TIME: 1335 to 1400 ROOM: [place] [address] Recommended Discharge Disposition: Home Recommended Discharge Disposition Comments: May progress to ambulation without AD Anticipated Discharge Needs: Physical Assist at Home Physical Assist at Home for: Transportation;Shopping;Laundry;Cleaning Recommended Discharge Equipment: Wheeled Walker PT Recommendations to Nursing: Ambulate with device;To bathroom;In halls;OOB for Meals;With assist of 1 person Device: Wheeled Walker PT 6 Clicks Score: 23 Precautions/Activity Restrictions: Lines/Tubes/Drains;Abdominal ASSESSMENT : Improved ambulation distance and activity tolerance. Trial ambulation without AD. Encouraged ambulation on unit 4-6x/day with wheeled walker and supervision. Continue rec d/c home with PRN and use of wheeled walker. Anticipate will progress to ambulation without AD prior to d/c home. Patient Disposition at Start of Session: OOB in Chair Patient Disposition at End of Session: OOB in Chair Tolerated Full Session Physical Therapy Problem List: Education Deficit;Impaired Self Care;Functional Mobility Impairment Patient /Caregiver Goals: Go Home;Care For Self Goals for Plan of Care: Able to perform HEP with: Independent Rolling with: Modified Independent Transfer supine to/from sit with: Modified Independent Transfer sit to/from stand with: Modified Independent Ambulate with: Modified Independent Distance: >500 ft Device: (least restrictive device) Ambulate up and down steps with: Modified Independent Number of steps: 1 Device: Rail Progress Toward Goals: Progressing as expected Due To: Rehab Potential: Good PLAN: Treatment Frequency (times per week): 2 Current admission Treatment Interventions: Education;Self Care / Home Management;Energy Conservation Training;Strengthening;Functional Mobility Training;Balance Training;Neuromuscular Re-education;Pain Management Plan of Care developed with: Patient TREATMENT INTERVENTIONS: Therapy Diagnosis: Reduced mobility-other Interventions Provided: Therapeutic Activity (00602);Gait Training (12819) Therapeutic Activity (39043) Treatment Minutes: 10 1 unit Skilled Intervention(s): Cues for hand placement, safety, and proper technique with transfers. Educated in sternal precautions. Encouraged OOB to chair for meals and as tolerated throughout day with assist. Instructed in seated therex. Encouraged 2-3x/day. Educated in PT POC and rehab process. Gait Training (97110) Treatment Minutes: 15 1 unit Skilled Intervention(s): Cues for upright stance, safety, rest breaks as needed, proper breathing technique and proper use of wheeled walker. Educated on walking program. Encouraged increased ambulation on unit 4-6x/day with supervision. Total Timed Code Treatment Minutes: 25 Total Treatment Time (minutes): 25 FUNCTIONAL G CODE: PT 6 Clicks Score: 23 (01/26/18 1335) Mobility: Walking and Moving Around Current Status (G8978): CI (01/25/18 1050) Mobility: Walking and Moving Around Goal Status (G8979): CH (01/25/18 1050) Based on clinical assessment and the score on the 6 Clicks Functional Assessment Tool, the G code and corresponding severity modifiers are documented above. 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) OBJECTIVE: Mini Cog Score: 5 (12/28/17 0835) CURRENT FUNCTIONAL STATUS: Current Functional Mobility Assist Level Additional Information Rolling Supervision Supine to Sit Supervision Sit to Supine Supervision Scooting Supervision Sit to Stand Supervision Stand to Sit Supervision Bed to Chair Supervision Bed To Chair Transfer Type: Stand Pivot Bed To Chair Transfer Equipment: Wheeled Walker Toilet/Commode Gait Supervision (CGA without AD) Gait Device: Wheeled Walker;None Gait Distance (feet): 600 ft, 20 ft Stairs (NT today) Stairs Device: Rail Number of Stairs: 4 Curb Step Car Transfer General Gait Deviations: Renate decreased;Step length decreased Balance: Static Sitting;Dynamic Sitting;Static Standing;Dynamic Standing Static Sitting Balance: Independent Dynamic Sitting Balance: Independent Static Standing Balance: Supervision Dynamic Standing Balance: Contact Guard Assistance Please see discipline specific clinical documentation flowsheet for complete details for this therapy evaluation/treatment. SIGNATURE: Tianna Cabral PT PATIENT NAME: Frank Rivera DATE: January 26, 2018 TIME: 2:[address] CHEST WO IVCON Observed: 01/26/2018 Status: F Source: [place]AN[place] 2:19 PM [facility] REPOSITORY * * *Final Report* * * DATE OF EXAM: Jan 26 2018 2:19PM [facility] 0541 - CT CHEST WO IVCON / PROCEDURE REASON: Pleural effusion * * * * Physician Interpretation * * * * EXAMINATION: CHEST CT WITHOUT CONTRAST CLINICAL HISTORY: Pleural effusion, Technique: Spiral CT acquisition of the chest from the thoracic inlet to the upper abdomen without contrast. MQ: [id number] CT Dose-Length Product: 430 mGy*cm CT Dose Reduction Employed: Automated exposure control (AEC) Comparison: 01/07/2018 RESULT: Limitations: Breathing motion artifacts Lines, tubes, and devices: None. Lung parenchyma and pleura: There has been increase in size of partially loculated right pleural collection, currently moderate. Additionally, there has been development of high attenuation areas within the collection as seen posterior laterally-images 89 through 133 and posteriorly in the dependent lower right hemithorax-images 130 through 188. These high attenuation areas are compatible with hemorrhagic components. There has been increase of compressive atelectatic changes associated with the right pleural effusion, currently including the entire right lower lobe basilar segments and the lateral segment of the right middle lobe. Superimposed secondary process such as infection cannot BE excluded. Tiny left pleural effusion has increased in size. Adjacent compressive and basilar atelectatic changes on the left have increased. Superimposed secondary process cannot BE excluded. Evaluation of the remaining portions of the lungs is limited by breathing motion artifacts. Again noted are mild to moderate centrilobular emphysematous changes in the upper lung zones. Inflammatory airway thickening is seen in the mid to lower lungs. Superimposed peribronchial minimal interstitial edema is not excluded. Tiny nodule adjacent to the left major fissure is stable-image 51. Additional tiny nodule remains in the medial right upper lobe-image 66 . Continued follow-up is recommended. There have been mixed interval changes of dependent groundglass and minimally reticular opacities. These may represent partial atelectasis with possible superimposed edema and/or inflammation. Linear atelectatic or fibrotic strands are seen mostly at the bases. Minimal septal thickening has minimally increased. This could be secondary to edema/fluid overload. Thoracic inlet, heart, and mediastinum: Thyroid is atrophic. Central airways are patent. The heart remains mildly enlarged. Development of tiny pericardial effusion versus pericardial thickening. The patient underwent median sternotomy in the interim between the 2 exams with redo aVR. Small hematoma is surrounding the ascending aorta, measuring approximately 1 cm in thickness. Additionally, there has been development of postoperative changes in the anterior mediastinum, including fat stranding, fluid and hemorrhagic changes. Thoracic aorta is within normal in diameter. Main pulmonary artery is mildly dilated suggesting elevated pulmonary pressure. Atherosclerotic calcifications are in the coronary arteries and aorta. [ ] There is nonspecific thickening of the distal esophagus. Small and borderline mediastinal lymph nodes are again seen with minimal increase in size of some of the nodes. These are likely reactive Bones and soft tissues: Soft tissue edema has increased in the chest wall with no discrete fluid collection, mass or axillary adenopathy. Interval redo median sternotomy. Mild generalized osteopenia with no discrete lytic or sclerotic osseous lesion. Changes of prior right thoracotomy or posttraumatic healed fractures in the right- sided ribs. Upper abdomen: Unchanged. IMPRESSION: RIGHT MODERATE HEMOTHORAX, LARGER AND MORE LOCULATED COMPARED TO THE PREVIOUSLY SEEN SIMPLE PLEURAL EFFUSION. INCREASE IN SIZE OF TINY LEFT PLEURAL EFFUSION. INCREASE OF COMPRESSIVE ATELECTATIC CHANGES BILATERALLY, RIGHT MORE THAN LEFT. SUPERIMPOSED SECONDARY PROCESS SUCH INFECTION/ASPIRATION PNEUMONITIS CANNOT BE EXCLUDED. RADIOGRAPHIC FOLLOW-UP IS RECOMMENDED. INTERVAL REDO MEDIAN STERNOTOMY WITH DEVELOPMENT OF POSTOPERATIVE CHANGES INCLUDING HEMORRHAGIC FLUID WITHIN THE MEDIASTINUM. STABLE INDETERMINATE PULMONARY NODULES. FOLLOW-UP IN 12 MONTH IS RECOMMENDED. Loss Prevention Operations Manager: PSCB Transcribe Date/Time: Jan 26 2018 2:38P Dictated by : ARLEN AGARWAL MD This examination was interpreted and the report reviewed and electronically signed by: ARLEN AGARWAL MD on Jan 26 2018 2:56PM EST [id number] PROGRESS Observed: 01/26/2018 Status: COMPLETED Source: [place] 2:11 PM [facility] REPOSITORY HNO ID: [id number] Author: Sumit Clemente (Rt) Service: Radiology Author Type: Spray Rig Operator Type: Progress Notes Filed: 01/26/2018 2:11 PM Note Text: Radiology Service Progress Note PATIENT NAME: Frank Rivera DATE OF SERVICE: January 26, 2018 TIME: 2:11 PM PATIENT IDENTITY VERIFICATION COMPLETED USING TWO (2) METHODS: Patient confirmed name verbally and ID band matches.. PATIENT GENDER DATA: Male PATIENT RELEVANT IMPLANT DATA REVIEWED: Yes RADIOLOGY DEPARTMENT: CT; Exam(s) Completed: Chest PERIPHERAL IV DATA: Not applicable SIGNED BY: RT Antonio January 26, 2018 2:11 PM PROGRESS Observed: 01/26/2018 Status: COMPLETED Source: [place] 1:33 PM [facility] REPOSITORY HNO ID: [id number] Author: Adryan Rubalcava Service: Cardiac Surgery Author Type: Nurse Practitioner Type: Progress Notes Filed: 01/26/2018 1:35 PM Note Text: [facility] POSTOP PROGRESS NOTE Day of Surgery:01/19/2018 S/P SURGERY: Reoperation second open-heart surgery. Aortic valve with root debridement and replacement with 26-mm aortic homograft. Tricuspid valve repair according to Gretta. Removal of pacemaker and permanent leads and placement of new epicardial leads on RV, LV, and right atrium and implantation of a new pacemaker. INTERVAL EVENTS / PERTINENT ROS: Uneventful night Left CT drained 50cc Will go for chest CT to evaluate the amount of right pleural effusion per Dr. Alarcon Rhythm: AV paced Intake/Output Summary (Last 24 hours) at 01/26/18 1333 Last data filed at 01/26/18 1300 Gross per 24 hour Intake 1362 ml Output 3050 ml Net -1688 ml EKG: most recent image reviewed, most recent report reviewed TELE: most recent recordings reviewed CXR: most recent image reviewed, most recent report reviewed Echocardiogram: most recent report reviewed PHYSICAL EXAM: BP 137/91 Pulse 80 Temp 37.3 ?C (99.1 ?F) (Oral) Resp 20 Ht 193 cm (6' 4) Wt 110.1 kg (242 lb 12.8 oz) SpO2 91% BMI 29.55 kg/m? Neuro: AANDO x 3 moves all extremities with no apparent weakness CV: no jugular venous distention Heart Exam: RRR without murmur, gallop, or rubs. No ectopy. Resp: clear to auscultation bilaterally Abd: The abdomen is soft, nontender, nondistended; BS normal; no masses or organomegaly noted. Skin: Skin color, texture, turgor normal, no suspicious rashes or lesions Ext: Trace edema Surgical incisions: clean, dry and intact Chest tube: Yes: less than 200 mL output per 24 hours Pacer wires: No. HISTORY, ASSESSMENT AND PLAN: Problem Transition of Care Performed With Sharing of Clinical Summary Indication for Surgery: Infective endocarditis of aortic valve Preop LVEF: Normal RVF: mild Postop LVEF: Normal RVF: mild PMH/PSH: Atrial fibrillation /p PPM and DCCV in 04/2017 on apixaban 5mg BID on metoprolol 12.5mg BID, HTN ,Hypothyroidism Aortic Stenosis s/p bioprosthetic AVR (27mm St. Richi Trifecta pericardial valve) and RUDY ligation 05/07/17 Hx of CVA with residual dysphagia Hx of Min-En-Y bypass in 1995 Hx of Upper GI bleeds (1997, 2014, 2015) Preoperative Hospital Course: 62y/o gentleman with atrial fibrillation and SSS s/p PPM, HTN, hypothyroidism, aortic stenosis s/p AVR and RUDY, history of Min-en-Y bypass c/b recurrent GIB, ADRIANNE, B12 deficiency, [facility] with fatigue and shortness of breath who was transferred from OSH with IRINA and renal biopsy concerning for C3 nephropathy. MICU transfer to initiate dialysis secondary to volume overload. CHANDRAKANT 01/01 showed AV vegitation. Airway Difficulty: Grade II - No special instrumentation Pacing Wires: No Chronological List of Surgeries and Major Events (Diagnosis): (Surgeries in bold characters) 01/19/2018: Prosthetic aortic valve explant, Homograft implant as valve/root/ascending aorta and reimplantation of coronary buttons Explant of right atrial and right ventricular endocardial leads and explant of generator left upper pectoral area Implant of epicardial leads on right atrium, right ventricule and left ventricle Pacemaker generator insertion left pre-rectus sheath A/P of Major Active Problems (excluding routine care and common problems): -s/p reimplantation PPM. Formal device check done 01/25 -endocarditis. ID following. On Rocephin QD. RCW SYLVIA catheter intact -mod right pleural effusion per cxr. Chest CT per Dr. Alarcon to evaluate the amount of fluid. -left CT drained 50cc -IRINA. RCW permacath intact. Dialyzed 3L yesterday. nephro continue to follow -from [place], [place]. PT recs home. No DC date yet. 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 On Apixaban and BB pre-op. Assessment: V paced on telemetry. No AF/AT per recent pacer check Plan: Continue Coreg- now optimal dose. Home med Apixaban - discuss with CTS regarding AC. Htn (Hypertension) History: on hydralazine, lopressor at home Assessment: [id number] Plan: Continue coreg Pain, Postoperative, Acute History: postop Assessment: reports pain is controlled Plan: Optimize pain control w/ scheduled Lidoderm patches and Tylenol, prn Oxycodone Irina (Acute Kidney Injury) (Hcc) History: started dialysis 12/27/17. permacath dialysis access Assessment: Scr 4.97. oliguric Plan: Plan for next session IHD today. Renal following. DAILY STEP DOWN CHECKLIST FOR CATHETER RELATED INFECTION PREVENTION CVC, PICC, Sylvia and/or Permacath present? Yes - Sylvia - needed for IV antibiotics Does the patient have a urinary catheter beyond POD 2? No VTE Risk Assessment: High risk VTE Mechanical and/or Pharmacologic Prophylaxis: IPC Device, GCS and Subcutaneous Heparin Labs and medications reviewed in Epic Case discussed in depth with: Dr King SIGNATURE: Adryan Rubalcava APRN.CNP PATIENT NAME: Frank Rivera DATE: January 26, 2018 TIME: 1:35 PM PAGER/CONTACT #: [phone] ETX#[id number] CASE MANAGEM Observed: 01/26/2018 Status: COMPLETED Source: [place] 12:29 PM [facility] REPOSITORY HNO ID: [id number] Author: Laina Perez) DIEUDONNE Alexander Service: Case Management Author Type: Registered Nurse Type: Care Mgt Progress Note Filed: 01/26/2018 12:38 PM Note Text: CARE MANAGEMENT PROGRESS NOTE SERVICE DATE: 01/26/2018 SERVICE TIME: 12:38 PM LOS: 33 days FREEDOM OF CHOICE GIVEN: Yes 01/26/18 with patient and mother The patient and/or family has been given the Provider List: Yes Preference: patient preference is [facility] Needs Prior to Discharge: Accepting Facility;IV Antibiotics;Facility or Agency Choices;Home Care Order;Precertification;Other: See Comment Procedure Needed: outpatient dialysis CM met with patient at the bedside to discuss discharge needs and plan of care. PT recommendation is to home. Patient and family preference is [facility] for IV antibiotic therapy .Referal generated. Patient will be staying with parents when medically cleared for discharge. Mother is a retired RN. Patient parents are able to transport patient to and from dialysis appointments. CM paged Chelle Marrero for coordination of outpatient dialysis in the [place] area. SIGNATURE: Laina Alexander RN PATIENT NAME: Frank Rivera DATE: January 26, 2018 TIME: 12:29 PM PAGER/CONTACT #: [phone] NUTRITION Observed: 01/26/2018 Status: COMPLETED Source: [place]ANO 9:24 AM [facility] REPOSITORY HNO ID: [id number] Author: Suzanne Palacios (Tech) Service: Nutrition Therapy Author Type: Traffic Control Officer Type: Nutrition Filed: 01/26/2018 9:27 AM Note Text: NUTRITION THERAPY FOLLOW-UP NOTE SERVICE DATE: 01/26/2018 SERVICE TIME: 750am Anthropometrics: Height: 193 cm (6' 4) Current Weight: Weight: 110.1 kg (242 lb 12.8 oz) Body mass index is 29.55 kg/m?. Loss of lean body mass/visual muscle wasting: no Admitting Diagnosis: C3 NEPHROPATHY IRINA Present Diet Order: Heart Healthy 2 gm Na, Renal and Fluid restriction of 1500ml/day Is the patient having any pain that is interfering with oral/enteral intake? No Allergies: ALLERGIES Allergen Reactions - Penicillin Hives Reason for Visit: Nutrition screen: LOS > 6 days Nutrient intake assessment: Current intake of meals: 50 - 100% Patient concerns/Issues: patient has a good intake and appetite but is finding it hard to order with current diet restrictions. Food preferences obtained and patient states he orders things and doesn't get them or his diet is just very limited. Discussed with RD and will suggest new diet order. Will continue to monitor intakes and nutritional needs. Nursing Admission Assessment Malnutrition Score Tool: 0 Plan of Care: Recommendation Continue to monitor weekly and discuss plan with Registered Dietitian RD to pend new diet order Discharge Plan: home on heart healthy diet MNT Billing Type: Routine Care/15 min 1 unit SIGNATURE: Suzanne Palacios DTR PATIENT NAME: Frank Rivera DATE: January 26, 2018 TIME: 9:24 AM PAGER: [phone] CBC Collected: 01/26/2018 Status: F Source: PLANO 4:03 AM [facility] REPOSITORY TYPE CODE TESTS RESULT OUT OF REFERENCE UNITS RANGE LAB WBC 3.70-11.00 k/uL WBC 4.10 LAB RBC 4.20-6.00 m/uL Low RBC 2.77 LAB HGB 13.0-17.0 g/dL Low Hemoglobin 8.4 LAB HCT 39.0-51.0 % Low Hematocrit 26.4 LAB MCV 80.0-100.0 fL MCV 95.3 LAB MCH 26.0-34.0 pG MCH 30.3 LAB MCHC 30.5-36.0 g/dL MCHC 31.8 LAB RDWCV 11.5-15.0 % RDW-CV High 17.8 LAB PLTCT 150-400 k/uL Low Platelet Count 88 Result Comment: No clot detected. LAB MPV 9.0-12.7 fL MPV 9.2 LAB ABSNUC <0.01 k/uL Absolute nRBC <0.01 Performed By: #### CBC, CMP #### [facility] [address] [place], [place] [address] COMP METABOLIC PANEL Collected: 01/26/2018 Status: F Source: PLANO 4:03 AM [facility] REPOSITORY TYPE CODE TESTS RESULT OUT OF REFERENCE UNITS RANGE LAB TP 6.3-8.0 g/dL Protein, Total 6.4 LAB ALB 3.9-4.9 g/dL Low Albumin 2.3 LAB CA 8.5-10.2 mg/dL Low Calcium, Total 8.1 LAB TBIL 0.2-1.3 mg/dL Bilirubin, Total 0.4 LAB ALKP 38-113 U/L Alkaline High Phosphatase 116 LAB AST 14-40 U/L AST 21 LAB GLU 74-99 mg/dL Glucose 82 Result Comment: The [place] Diabetes Association (ADA) provides guidance for cutoff values for fasting glucose and random glucose. The ADA defines fasting as no caloric intake for at least 8 hours. Fas ting plasma glucose results between 100 to 125 mg/dL indicate increased risk for diabetes (prediabetes). Fasting plasma glucose results greater than or equal to 126 mg/dL meet the criteria for diagnosis of diabetes. In the absence of unequivocal hyperglycemia, results should be confirmed by repeat testing. In a patient with classic symptoms of hyperglycemia or hyperglycemic crisis, random plasma glucose results greater than or equal to 200 mg/dL meet the criteria for diagnosis of diabetes. Reference: Standards of Medical Care in Diabetes 2016, [place] Diabetes Association. Diabetes Care. 2016.39(Suppl 1). LAB BUN 9-24 mg/dL BUN 13 LAB CRET 0.73-1.22 mg/dL Creatinine High 3.58 LAB NA 136-144 mmol/L Low Sodium 133 LAB K 3.7-5.1 mmol/L Potassium 4.5 LAB CL 97-105 mmol/L Chloride 98 LAB CO2 22-30 mmol/L CO2 30 LAB AGAP 9-18 mmol/L Low Anion Gap 5 LAB ALT 10-54 U/L ALT 15 LAB GFRAA eGFR- Amer. 21 LAB GFRNAA . eGFR-All Other Races 17 Result Comment: eGFR (Estimated GFR) Units of measure: mL/min/1.73 meters squared eGFR is derived from the reexpressed MDRD Study equation using the following parameters: serum creatinine, age, gender and race. The creatinine assay has been calibrated to be traceable to IDMS. An eGFR <60 mL/min/1.73m2 for >3 months is consistent with chronic kidney disease. Refer to KDOQI guidelines for clinical interpretation. In patients with unstable renal function, e.g. those with acute kidney injury, the eGFR may not accurately reflect actual GFR. Performed By: #### CBC, CMP #### [facility] [employer] [address] [place] [id number] CONSULT PROG Observed: 01/25/2018 Status: COMPLETED Source: PLANO 4:32 PM [facility] REPOSITORY HNO ID: [id number] Author: Ray Conde MD Service: Nephrology Author Type: Physician Type: Consult Progress Note Filed: 01/25/2018 4:42 PM Note Text: CONSULT PROGRESS NOTE NEPHROLOGY SERVICE SERVICE DATE: 01/25/2018 SERVICE TIME: 4:32 PM Subjective INTERVAL HISTORY: No acute events reported overnight. Patient seen on dialysis, tolerating treatment well. MEDICATIONS: Current hospital medications: oxymetazoline 0.05 % 2 [place] (GENASAL) 2 [place] EACH NOSTRIL BID ALPRAZolam 0.25 mg tab(s) (XANAX) 0.25 mg ORAL BID PRN 0.9% NaCl 3-5 mL 3-5 mL INTRAVENOUS q 12 H 0.9% NaCl 10 mL 10 mL INTRAVENOUS q 12 H aspirin 162 mg chewable tab(s) 162 mg ORAL DAILY potassium chloride ER 10-60 mEq tab(s) (K-DUR, KLOR-CON) 10- 60 mEq ORAL PRN therapeutic multivitamin 1 tablet tab(s) (THERA VITAMIN) 1 tablet ORAL DAILY WITH BREAKFAST pantoprazole DR 20 mg tab(s) (PROTONIX) 20 mg ORAL DAILY (6 AM) acetaminophen 650 mg tab(s) (TYLENOL) 650 mg ORAL q 4 H PRN bisacodyl 10 mg suppository (DULCOLAX) 10 mg RECTAL DAILY PRN sodium phosphate-sodium bisphosphate 133 mL enema (FLEET) 133 mL RECTAL PRN magnesium hydroxide 400 mg/5 mL 30 mL (MOM) 30 mL ORAL q 6 H PRN heparin 5,000 Units injection 5,000 Units SUBCUTANEOUS q 12 H Darbepoetin Tereza In Polysorbat 60 mcg injection (ARANESP) 60 mcg SUBCUTANEOUS q MON carvedilol 25 mg tab(s) (COREG) 25 mg ORAL BID w MEALS ondansetron (PF) 4 mg injection (ZOFRAN) 4 mg INTRAVENOUS q 6 H PRN lidocaine 5 % 1 Patch (LIDODERM) 1 Patch TRANSDERMAL DAILY lidocaine patch - REMOVE OTHER AT BEDTIME lidocaine - VERIFY PATCH OTHER q 8 H oxyCODONE IR 5-10 mg tab(s) (ROXICODONE) 5-10 mg ORAL/FEEDING TUBE q 6 H PRN doxycycline 100 mg in D5W 250 mL Vial-Mate (VIBRAMYCIN) 100 mg INTRAVENOUS q 12 H cefTRIAXone 2 g in D5W 100 mL MB+ (ROCEPHIN) 2 g INTRAVENOUS q 24 H calcium carbonate 1,000 mg chewable tab(s) (TUMS) 1,000 mg ORAL/FEEDING TUBE BID PRN sodium chloride 0.65 % 2 [place] (AYR, OCEAN) 2 [place] EACH NOSTRIL TID PRN rqguztpo-tgdd-gilqe acid chewable tablet (CENTRUM) 1 tablet ORAL DAILY cholecalciferol 3,000 Units tab(s) (VITAMIN D3) 3,000 Units ORAL DAILY cyanocobalamin 500 mcg tab(s) (VITAMIN B-12) 500 mcg ORAL DAILY thiamine 100 mg tab(s) (VITAMIN B1) 100 mg ORAL DAILY diphenhydrAMINE 25 mg (BENADRYL) 25 mg ORAL q 6 H PRN tamsulosin ER 0.4 mg cap(s) (FLOMAX) 0.4 mg ORAL DAILY levothyroxine 200 mcg tab(s) (SYNTHROID) 200 mcg ORAL BEFORE BREAKFAST DAILY atorvastatin 80 mg tab(s) (LIPITOR) 80 mg ORAL AT BEDTIME Objective PHYSICAL EXAM: BP 139/90 Pulse 78 Temp 36.1 ?C (97 ?F) (Temporal Artery) Resp 18 Ht 193 cm (6' 4) Wt 112.4 kg (247 lb 11.2 oz) SpO2 96% BMI 30.15 kg/m? Intake/Output Summary (Last 24 hours) at 01/25/18 1632 Last data filed at 01/25/18 1625 Gross per 24 hour Intake 822 ml Output 60 ml Net 762 ml Constitutional: No acute distress and Responsive Neck: Trachea midline No jugular venous distension Cardiovascular: Heart sounds: Rate: Normal Edema present: 1-2+ Respiratory: Normal respiratory effort. Lungs clear bilaterally. Abdomen: Soft, non-tender, non-distended. Normal bowel sounds. Psychiatric: Alert and oriented x self, place, time, and setting Normal mood/affect Vascular Access: Hemodialysis catheter location: Right Tunneled internal jugular. Exit site demonstrates: normal findings DATA: Diagnostic tests reviewed for today's visit: Most recent labs Recent Labs 01/25/18 0343 01/24/18 0600 01/23/18 0507 01/22/18 0100 01/21/18 0410 01/19/18 0524 NA 129* 134* 129* 130* 133* < > 135* K 4.5 4.6 4.9 4.8 4.5 < > 4.5 CHLOR 94* 95* 91* 95* 96* < > 97 CO2 27 28 22 27 25 < > 28 BUN 21 17 29* 21 15 < > 17 CREAT 4.65* 3.64* 4.97* 4.00* 3.31* < > 3.84* GLUC 81 79 71* 90 94 < > 82 ANION 8* 11 16 8* 12 < > 10 CA 8.2* 7.9* 7.9* 8.1* 7.9* < > 8.2* P -- -- -- 4.7 -- -- 2.6* MG -- -- -- 1.7 -- -- 1.9 < > = values in this interval not displayed. 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 See comment. - Tubular atrophy and interstitial fibrosis, mild. LH/ka 12/30/2017 COMMENT Light microscopy unequivocally shows a focal proliferative glomerulonephritis with up to 4 glomeruli out of 29 sampled showing cellular or fibrocellular crescents and one additional glomerulus showing a more chronic lesion with a segmental scar and fibrous crescent. Focally prominent neutrophil accumulation is noted within areas of proliferation. Immunofluorescence reveals strong staining for IgM and C3 with lesser staining for multiple other reactants. The strong staining for IgM (which does not appear to be artifactual) would preclude the diagnosis of C3 nephropathy. Instead, IgM staining of this type, in combination with crescentic glomerulonephritis has been described in infection-related glomerulonephritis (see Estefanía et al AJKD 63:1060-65, 2014). Given the finding of low C3, the finding of focal lymphadenopathy and the multiple borderline positive serologic findings such as mild MPO and dsDNA would all suggest a potential underlying infectious etiology. Specifically, correlation to exclude Bartonella infection, which can involve cardiac prosthesis and produce lymphadenopathy and be essentially undetectable on routine blood cultures should be performed. Also potentially in the differential diagnosis, given the positive dsDNA serology would be lupus nephritis, though it would be highly unusual for IgM to predominate over IgG in this setting. Results were discussed with Dr. Candelario of [facility] Nephrology at 1:30 p.m. on 12/30/2017. Roberto Salazar MD (Electronic Signature) SPECIMEN SUBMITTED A: 42 SLIDES (INCLUDING 7 USS) [id number] AND 9 EM PHOTOS MICROSCOPIC DESCRIPTION Materials for review consist of glass slides stained with NICHOLE, PAS, trichrome, Christopher and congo red, as well as an immunofluorescence panel and several electron microscopy xeroxed images. Slides reveal multiple cores of renal cortex and medulla. Approximately 29 glomeruli are sampled, 4 of which are globally sclerotic. One glomerulus displays a segmental lesion of sclerosis associated with an old fibrous crescent. Among the remaining glomeruli, 4 display segmental involvement by cellular or fibrocellular crescents. PAS and Christopher stains highlight focal ruptures in the glomerular basement membrane and accumulation of cells, including neutrophils, in Zaidi's space. Several additional glomeruli display segmental margination of leukocytes, including focally prominent neutrophils, within glomerular capillaries. Trichrome staining shows no more than mild fibrosis. There is a patchy tubulointerstitial inflammatory infiltrate composed predominantly of mononuclear leukocytes, focally with admixed neutrophils. Vessels display mild arterio- and arteriolosclerosis but no evidence of arteritis. Immunofluorescence slides stained with IgG, IgA, IgM, C3, C1q, kappa, lambda, fibrinogen and albumin are available for review. Up to 8 glomeruli are sampled, 1 of which is globally sclerotic. There are granular mesangial and focal capillary wall deposits that stain 1+ for IgG, trace for IgA, 3+ for IgM and C3, 1+ for C1q, 2+ for kappa and 1+ for lambda. Fibrinogen and albumin staining is negative or nonspecific. The digital electron microscopy images provided are somewhat difficult to read due to print quality. However, rare ill-defined electron densities were noted in the mesangium but no significant peripheral capillary wall immune deposition is seen. Podocyte foot process effacement appears to be at least moderate. Laboratory Developed Test (LDT) Disclaimer: Positive and negative controls stain appropriately. Performance characteristics of immunohistochemical, immunofluorescent and chromogenic in-situ hybridization tests have been determined by [facility]'s [facility] Pathology and Laboratory Medicine [place] ([facility]) in a manner consistent with CLIA requirements. One or more of these tests have not been cleared or approved by the FDA. [facility] is regulated under CLIA as qualified to perform high-complexity testing. These tests are used for clinical purposes. They should not be regarded as investigational or for research. ? CLINICAL DATA A 62-YEAR-OLD MALE WITH HISTORY OF ATRIAL FIBRILLATION, AORTIC VALVE REPLACEMENT, PACEMAKER INSERTION AND CVA PRESENTS WITH ACUTE RENAL FAILURE. RECENTLY OCTOBER, CREATININE WAS NORMAL AND IS NOW 4.1. RENAL BIOPSY WAS PERFORMED AT AN OUTSIDE HOSPITAL AND REVIEW OF THE RESULTS IS REQUESTED BY DR. GOPAL DARLING OF [facility] NEPHROLOGY. SEROLOGIC WORKUP IS NOTABLE FOR A LOW C3, POSITIVE ANCA WITH A MILD INCREASE IN MPO, NEGATIVE FATOU, NEGATIVE DULCE, POSITIVE PETAR, POSITIVE DOUBLE-STRANDED DNA, AND CRYOGLOBULINS OF 216. BLOOD CULTURES HAVE BEEN NEGATIVE THUS FAR. HIV, HEPATITIS B AND HEPATITIS C ARE NEGATIVE. CT OF THE ABDOMEN SHOWS WHAT APPEARS TO BE AN ENLARGED LYMPH NODE NEAR THE CELIAC AXIS. THE PATIENT IS NOW REQUIRING RENAL REPLACEMENT THERAPY DUE TO HYPERVOLEMIA. ? Date of Report: 12/31/2017 Date of Procedure: 12/29/2017 Date of Receipt: 12/30/2017 Submitted by: RILEY BAUMANN ([id number]) Location: [facility] Diagnostic interpretation performed at [facility], [address] [place] [address]. Assessment/Plan 62 year old male with PMH including A-fibb, s/p AVR, history of CVA, Fe deficiency anemia and hemolytic anemia presented to [facility] as a transfer from OSH on 12/24. ?Initial presentation to OSH was due to suspected GI bleed. Patient was transferred to [facility] upon worsening of renal function. ?S/p MVR 01/19/18. Per Dr. Candelario's note from 12/30/17 Renal biopsy slides from outside hospital reviewed today with Dr. 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 No need for steroids. Need to get ID consult and PCR for Bartonella. Consider CHANDRAKANT. The patient may have infected pacer wires. PLAN 1. No signs of durable renal recovery at this time. 2. His volume status remains elevated and will attempt additional volume removal at today's dialysis session. 3. We'll plan for his next dialysis session to be on Thursday. 4. We will continue to follow with you, please feel free to call me with any questions or concerns. Ray Conde MD, ARVIN Moe Endowed Chair in Nephrology and Hypertension Research Cyber Systems Administratorgear and spline grinder [facility] [place] SIGNATURE: Ray Conde MD PATIENT NAME: Frank Rivera DATE: January 25, 2018 TIME: 4:32 PM PAGER: [phone] PROGRESS Observed: 01/25/2018 Status: COMPLETED Source: PLANO 3:28 PM [facility] REPOSITORY O ID: [id number] Author: Adryan Rubalcava Service: Cardiac Surgery Author Type: Nurse Practitioner Type: Progress Notes Filed: 01/25/2018 3:30 PM Note Text: [facility] POSTOP PROGRESS NOTE Day of Surgery:01/19/2018 S/P SURGERY: Reoperation second open-heart surgery. Aortic valve with root debridement and replacement with 26-mm aortic homograft. Tricuspid valve repair according to Gretta. Removal of pacemaker and permanent leads and placement of new epicardial leads on RV, LV, and right atrium and implantation of a new pacemaker. INTERVAL EVENTS / PERTINENT ROS: Uneventful night Scheduled for dialysis today Left CT drained 250cc Ambulated with PT this morning Rhythm: V paced Intake/Output Summary (Last 24 hours) at 01/25/18 1528 Last data filed at 01/25/18 0855 Gross per 24 hour Intake 320 ml Output 60 ml Net 260 ml EKG: most recent image reviewed, most recent report reviewed TELE: most recent recordings reviewed CXR: most recent image reviewed, most recent report reviewed Echocardiogram: most recent report reviewed PHYSICAL EXAM: BP 125/90 Pulse 79 Temp 36.1 ?C (97 ?F) (Temporal Artery) Resp 18 Ht 193 cm (6' 4) Wt 112.4 kg (247 lb 11.2 oz) SpO2 96% BMI 30.15 kg/m? Neuro: AANDO x 3 moves all extremities with no apparent weakness CV: no jugular venous distention Heart Exam: RRR without murmur, gallop, or rubs. No ectopy. Resp: clear to auscultation bilaterally Abd: The abdomen is soft, nontender, nondistended; BS normal; no masses or organomegaly noted. Skin: Skin color, texture, turgor normal, no suspicious rashes or lesions Ext: Trace edema Surgical incisions: clean, dry and intact Chest tube: Yes: Greater than 200 mL output per 24 hours Pacer wires: No. HISTORY, ASSESSMENT AND PLAN: Problem Transition of Care Performed With Sharing of Clinical Summary Indication for Surgery: Infective endocarditis of aortic valve Preop LVEF: Normal RVF: mild Postop LVEF: Normal RVF: mild PMH/PSH: Atrial fibrillation /p PPM and DCCV in 04/2017 on apixaban 5mg BID on metoprolol 12.5mg BID, HTN ,Hypothyroidism Aortic Stenosis s/p bioprosthetic AVR (27mm St. 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 MICU transfer to initiate dialysis secondary to volume overload. CHANDRAKANT 01/01 showed AV vegitation. Airway Difficulty: Grade II - No special instrumentation Pacing Wires: No Chronological List of Surgeries and Major Events (Diagnosis): (Surgeries in bold characters) 01/19/2018: Prosthetic aortic valve explant, Homograft implant as valve/root/ascending aorta and reimplantation of coronary buttons Explant of right atrial and right ventricular endocardial leads and explant of generator left upper pectoral area Implant of epicardial leads on right atrium, right ventricule and left ventricle Pacemaker generator insertion left pre-rectus sheath A/P of Major Active Problems (excluding routine care and common problems): -s/p reimplantation PPM. Will need formal device check -endocarditis. ID following. On Rocephin QD. RCW SYLVIA catheter intact -left CT drained 210cc -IRINA. RCW permacath intact. Dialysis today. nephro continue to follow -from [place], [place]. PT consulted. No DC date yet. 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 On Apixaban and BB pre-op. Assessment: V paced on telemetry Plan: check underlying rhythm. Continue Coreg- now optimal dose. Home med Apixaban - discuss with CTS regarding AC. Htn (Hypertension) History: on hydralazine, lopressor at home Assessment: [id number] Plan: Continue coreg Pain, Postoperative, Acute History: postop Assessment: reports pain is controlled Plan: Optimize pain control w/ scheduled Lidoderm patches and Tylenol, prn Oxycodone Irina (Acute Kidney Injury) (Hcc) History: started dialysis 12/27/17. permacath dialysis access Assessment: Scr 4.97. oliguric Plan: Plan for next session IHD today. Renal following. DAILY STEP DOWN CHECKLIST FOR CATHETER RELATED INFECTION PREVENTION CVC, PICC, Sylvia and/or Permacath present? Yes - Sylvia - needed for IV antibiotics Does the patient have a urinary catheter beyond POD 2? No VTE Risk Assessment: High risk VTE Mechanical and/or Pharmacologic Prophylaxis: IPC Device, GCS and Subcutaneous Heparin Labs and medications reviewed in Epic Case discussed in depth with: Dr King SIGNATURE: Adryan Rubalcava APRN.CNP PATIENT NAME: Frank Rivera DATE: January 25, 2018 TIME: 1.now PAGER/CONTACT #: [phone] ETX#[id number] CASE MANAGEM Observed: 01/25/2018 Status: COMPLETED Source: PLANO 2:46 PM [facility] REPOSITORY [facility] ID: [id number] Author: Laina Perez) DIEUDONNE Alexander Service: Case Management Author Type: Registered Nurse Type: Care Mgt Progress Note Filed: 01/25/2018 2:58 PM Note Text: CARE MANAGEMENT PROGRESS NOTE CHANGE IN CONDITION SERVICE DATE: 01/25/2018 SERVICE TIME: 2:46 PM LOS: 32 days Needs Prior to Discharge: To Be Determined Procedure Needed: CTS Patient transferred from ICU 01/22/18. CM attempted to meet with patient but he was at dialysis. PT recommendation is for home. Patient mother jevon can be reached at [phone]. Awaiting COPAT order from [place]. SIGNATURE: Laina Alexander RN PATIENT NAME: Frank Rivera DATE: January 25, 2018 TIME: 2:46 PM PAGER/CONTACT #: [phone] TYPE AND SCREEN Collected: 01/25/2018 Status: F Source: PLANO 12:10 PM [facility] REPOSITORY TYPE CODE TESTS RESULT OUT OF REFERENCE UNITS RANGE LAB %ABR A ABO/RH(D) POSITIVE LAB % Antibody NEG Screen Performed By: #### TSCR #### [facility] [address] [place], [place] [address] THERAPY NT Observed: 01/25/2018 Status: COMPLETED Source: PLANO 11:14 AM [facility] REPOSITORY HNO ID: [id number] Author: Tianna MariePtJennifer Cabral Service: Physical Therapy Author Type: Physical Therapist Type: Therapy (PT/OT/Speech/Resp) Filed: 01/25/2018 12:46 PM Note Text: Physical Therapy Treatment SERVICE DATE: 01/25/2018 SERVICE TIME: 1050 to 1114 ROOM: [place] [address] Recommended Discharge Disposition: Home Recommended Discharge Disposition Comments: May progress to ambulation without AD Anticipated Discharge Needs: Physical Assist at Home Physical Assist at Home for: Transportation;Shopping;Laundry;Cleaning Recommended Discharge Equipment: Wheeled Walker PT Recommendations to Nursing: Ambulate with device;To bathroom;In halls;OOB for Meals;With assist of 1 person Device: Wheeled Walker PT 6 Clicks Score: 23 Precautions/Activity Restrictions: Lines/Tubes/Drains;Abdominal ASSESSMENT : Pt. presents with decreased activity tolerance, decreased strength and decreased balance limiting functional mobility. Recommend continued skilled PT services in the hospital to maximize safety/independence prior to discharge home. Rec d/c home with PRN assist and use of wheeled walker. Encouraged increased ambulation on unit 4-6x/day with wheeled walker and supervision. Patient Disposition at Start of Session: OOB in Chair Patient Disposition at End of Session: OOB in Chair Tolerated Full Session Physical Therapy Problem List: Education Deficit;Impaired Self Care;Functional Mobility Impairment Patient /Caregiver Goals: Go Home;Care For Self Goals for Plan of Care: Able to perform HEP with: Independent Rolling with: Modified Independent Transfer supine to/from sit with: Modified Independent Transfer sit to/from stand with: Modified Independent Ambulate with: Modified Independent Distance: >500 ft Device: (least restrictive device) Ambulate up and down steps with: Modified Independent Number of steps: 1 Device: Rail Progress Toward Goals: Progressing slower than expected Due To: surgery Rehab Potential: Good PLAN: Treatment Frequency (times per week): 2 Current admission Treatment Interventions: Education;Self Care / Home Management;Energy Conservation Training;Strengthening;Functional Mobility Training;Balance Training;Neuromuscular Re-education;Pain Management Plan of Care developed with: Patient TREATMENT INTERVENTIONS: Therapy Diagnosis: Reduced mobility-other Interventions Provided: Re-evaluation;Therapeutic Activity (47206) $ Reevaluation (58084) Billed Units: 1 unit Therapeutic Activity (34851) Treatment Minutes: 10 1 unit Skilled Intervention(s): Cues for hand placement, safety, and proper technique with bed mobility and transfers. Cues for upright stance, safety, rest breaks as needed, proper breathing technique and proper use of wheeled walker. Adjusted walker for pts height. Educated on walking program. Encouraged increased ambulation on unit 4-6x/day with supervision. Educated in sternal precautions. Encouraged OOB to chair for meals and as tolerated throughout day with assist. Instructed/reviewed seated therex. Encouraged 2-3x/day. Educated in PT POC and rehab process. Total Timed Code Treatment Minutes: 10 Total Treatment Time (minutes): 25 FUNCTIONAL G CODE: PT 6 Clicks Score: 23 (01/25/18 1050) Mobility: Walking and Moving Around Current Status (G8978): CI (01/25/18 1050) Mobility: Walking and Moving Around Goal Status (G8979): CH (01/25/18 1050) Based on clinical assessment and the score on the 6 Clicks Functional Assessment Tool, the G code and corresponding severity modifiers are documented above. SUBJECTIVE: Current Hospital Course: Chart reviewed; 01/19/2018 S/P SURGERY: ?Reoperation second open-heart surgery. ?Aortic valve with root ?debridement and replacement with 26-mm aortic homograft. ?Tricuspid valve repair ?according to Gretta. 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) OBJECTIVE: Mini Cog Score: 5 (12/28/17 1135) CURRENT FUNCTIONAL STATUS: Current Functional Mobility Assist Level Additional Information Rolling Supervision Supine to Sit Supervision Sit to Supine Supervision Scooting Supervision Sit to Stand Supervision Stand to Sit Supervision Bed to Chair Supervision Bed To Chair Transfer Type: Stand Pivot Bed To Chair Transfer Equipment: Wheeled Walker Toilet/Commode Gait Supervision Gait Device: Wheeled Walker Gait Distance (feet): 300 ft x 1 Stairs (NT today) Stairs Device: Rail Number of Stairs: 4 Curb Step Car Transfer General Gait Deviations: Renate decreased;Step length decreased Balance: Static Sitting;Dynamic Sitting;Static Standing;Dynamic Standing Static Sitting Balance: Independent Dynamic Sitting Balance: Independent Static Standing Balance: Supervision Dynamic Standing Balance: Contact Guard Assistance Please see discipline specific clinical documentation flowsheet for complete details for this therapy evaluation/treatment. SIGNATURE: Tianna Cabral PT PATIENT NAME: Frank Rivera DATE: January 25, 2018 TIME: 12:44 PM THERAPY NT Observed: 01/25/2018 Status: COMPLETED Source: [place] 8:50 AM [facility] REPOSITORY HNO ID: [id number] Author: Tianna Cabral Service: Physical Therapy Author Type: Physical Therapist Type: Therapy (PT/OT/Speech/Resp) Filed: 01/25/2018 9:32 AM Note Text: PHYSICAL THERAPY MISSED VISIT SERVICE DATE: 01/25/2018 SERVICE TIME: 0850 to 0850 ROOM: [place] [address] Attempted Treatment. Patient not seen due to Test/Procedure. SIGNATURE: Tianna Cabral PT PATIENT NAME: Frank Rivera DATE: January 25, 2018 TIME: 9:32 AM COMP METABOLIC PANEL Collected: 01/25/2018 Status: F Source: [place] 3:43 AM [facility] REPOSITORY TYPE CODE TESTS RESULT OUT OF REFERENCE UNITS RANGE LAB TP 6.3-8.0 g/dL Protein, Total 6.3 LAB ALB 3.9-4.9 g/dL Low Albumin 2.3 LAB CA 8.5-10.2 mg/dL Low Calcium, Total 8.2 LAB TBIL 0.2-1.3 mg/dL Bilirubin, Total 0.4 LAB ALKP 38-113 U/L Alkaline High Phosphatase 120 LAB AST 14-40 U/L AST 22 LAB GLU 74-99 mg/dL Glucose 81 Result Comment: The [place] Diabetes [employer] (ADA) provides guidance for cutoff values for fasting glucose and random glucose. The ADA defines fasting as no caloric intake for at least 8 hours. Fas ting plasma glucose results between 100 to 125 mg/dL indicate increased risk for diabetes (prediabetes). Fasting plasma glucose results greater than or equal to 126 mg/dL meet the criteria for diagnosis of diabetes. In the absence of unequivocal hyperglycemia, results should be confirmed by repeat testing. In a patient with classic symptoms of hyperglycemia or hyperglycemic crisis, random plasma glucose results greater than or equal to 200 mg/dL meet the criteria for diagnosis of diabetes. Reference: Standards of Medical Care in Diabetes 2016, [place] Diabetes Association. Diabetes Care. 2016.39(Suppl 1). LAB BUN 9-24 mg/dL BUN 21 LAB CRET 0.73-1.22 mg/dL Creatinine High 4.65 LAB NA 136-144 mmol/L Low Sodium 129 LAB K 3.7-5.1 mmol/L Potassium 4.5 LAB CL 97-105 mmol/L Low Chloride 94 LAB CO2 22-30 mmol/L CO2 27 LAB AGAP 9-18 mmol/L Low Anion Gap 8 LAB ALT 10-54 U/L ALT 16 LAB GFRAA eGFR- Amer. 16 LAB GFRNAA . eGFR-All Other Races 13 Result Comment: eGFR (Estimated GFR) Units of measure: mL/min/1.73 meters squared eGFR is derived from the reexpressed MDRD Study equation using the following parameters: serum creatinine, age, gender and race. The creatinine assay has been calibrated to be traceable to IDMS. An eGFR <60 mL/min/1.73m2 for >3 months is consistent with chronic kidney disease. Refer to KDOQI guidelines for clinical interpretation. In patients with unstable renal function, e.g. those with acute kidney injury, the eGFR may not accurately reflect actual GFR. Performed By: #### CMP, CBC #### [facility] [address] [place], [place] [address] CBC Collected: 01/25/2018 Status: F Source: [place] 3:43 AM [facility] REPOSITORY TYPE CODE TESTS RESULT OUT OF REFERENCE UNITS RANGE LAB WBC 3.70-11.00 k/uL Low WBC 3.54 LAB RBC 4.20-6.00 m/uL Low RBC 2.44 LAB HGB 13.0-17.0 g/dL Low Hemoglobin 7.3 LAB HCT 39.0-51.0 % Low Hematocrit 22.7 LAB MCV 80.0-100.0 fL MCV 93.0 LAB MCH 26.0-34.0 pG MCH 29.9 LAB MCHC 30.5-36.0 g/dL MCHC 32.2 LAB RDWCV 11.5-15.0 % RDW-CV High 18.6 LAB PLTCT 150-400 k/uL Low Platelet Count 96 Result Comment: No clot detected. LAB MPV 9.0-12.7 fL MPV 9.4 LAB ABSNUC <0.01 k/uL Absolute nRBC <0.01 Performed By: #### CMP, CBC #### [facility] [address] [place] [id number] CONSULT PROG Observed: 01/24/2018 Status: COMPLETED Source: [place] 4:11 PM [facility] REPOSITORY HNO ID: [id number] Author: Binu Christian Service: Nephrology Author Type: Physician Type: Consult Progress Note Filed: 01/24/2018 4:13 PM Note Text: Renal Consults F/U January 24, 2018 S: No major events. tolerated IHD yesterday with low UF given non oliguric but unfortunately, not much UOP in the last 24 h. Current hospital medications: oxymetazoline 0.05 % 2 [place] (GENASAL) 2 [place] EACH NOSTRIL BID ALPRAZolam 0.25 mg tab(s) (XANAX) 0.25 mg ORAL BID PRN 0.9% NaCl 3-5 mL 3-5 mL INTRAVENOUS q 12 H 0.9% NaCl 10 mL 10 mL INTRAVENOUS q 12 H aspirin 162 mg chewable tab(s) 162 mg ORAL DAILY potassium chloride ER 10-60 mEq tab(s) (K-DUR, KLOR-CON) 10- 60 mEq ORAL PRN therapeutic multivitamin 1 tablet tab(s) (THERA VITAMIN) 1 tablet ORAL DAILY WITH BREAKFAST pantoprazole DR 20 mg tab(s) (PROTONIX) 20 mg ORAL DAILY (6 AM) acetaminophen 650 mg tab(s) (TYLENOL) 650 mg ORAL q 4 H PRN bisacodyl 10 mg suppository (DULCOLAX) 10 mg RECTAL DAILY PRN sodium phosphate-sodium bisphosphate 133 mL enema (FLEET) 133 mL RECTAL PRN magnesium hydroxide 400 mg/5 mL 30 mL (MOM) 30 mL ORAL q 6 H PRN heparin 5,000 Units injection 5,000 Units SUBCUTANEOUS q 12 H [START ON 01/25/2018] Darbepoetin Tereza In Polysorbat 60 mcg injection (ARANESP) 60 mcg SUBCUTANEOUS q MON carvedilol 25 mg tab(s) (COREG) 25 mg ORAL BID w MEALS ondansetron (PF) 4 mg injection (ZOFRAN) 4 mg INTRAVENOUS q 6 H PRN lidocaine 5 % 1 Patch (LIDODERM) 1 Patch TRANSDERMAL DAILY lidocaine patch - REMOVE OTHER AT BEDTIME lidocaine - VERIFY PATCH OTHER q 8 H oxyCODONE IR 5-10 mg tab(s) (ROXICODONE) 5-10 mg ORAL/FEEDING TUBE q 6 H PRN doxycycline 100 mg in D5W 250 mL Vial-Mate (VIBRAMYCIN) 100 mg INTRAVENOUS q 12 H cefTRIAXone 2 g in D5W 100 mL MB+ (ROCEPHIN) 2 g INTRAVENOUS q 24 H calcium carbonate 1,000 mg chewable tab(s) (TUMS) 1,000 mg ORAL/FEEDING TUBE BID PRN sodium chloride 0.65 % 2 [place] (AYR, OCEAN) 2 [place] EACH NOSTRIL TID PRN egnmlxns-aaxz-epibh acid chewable tablet (CENTRUM) 1 tablet ORAL DAILY cholecalciferol 3,000 Units tab(s) (VITAMIN D3) 3,000 Units ORAL DAILY cyanocobalamin 500 mcg tab(s) (VITAMIN B-12) 500 mcg ORAL DAILY thiamine 100 mg tab(s) (VITAMIN B1) 100 mg ORAL DAILY diphenhydrAMINE 25 mg (BENADRYL) 25 mg ORAL q 6 H PRN tamsulosin ER 0.4 mg cap(s) (FLOMAX) 0.4 mg ORAL DAILY levothyroxine 200 mcg tab(s) (SYNTHROID) 200 mcg ORAL BEFORE BREAKFAST DAILY atorvastatin 80 mg tab(s) (LIPITOR) 80 mg ORAL AT BEDTIME PHYSICAL EXAM: Patient Vitals for the past 24 hrs: BP Temp Temp src Pulse Resp SpO2 Weight 01/24/18 1507 126/86 36.6 ?C (97.8 ?F) Oral 79 20 91 % - 01/24/18 1052 114/78 36.8 ?C (98.3 ?F) Oral 80 18 91 % - 01/24/18 0706 107/71 37.2 ?C (98.9 ?F) Oral 79 18 92 % - 01/24/18 0600 - - - - - - 111.6 kg (246 lb) 01/24/18 0252 114/74 36.8 ?C (98.3 ?F) Oral 80 20 94 % - 01/23/18 2335 99/60 36.9 ?C (98.5 ?F) Oral 79 20 95 % - 01/23/18 1800 98/58 36.4 ?C (97.5 ?F) Oral 79 20 98 % - VS: Patient Vitals for the past 4 hrs: BP Pulse Temp Resp SpO2 01/24/18 1507 126/86 79 36.6 ?C (97.8 ?F) 20 91 % I/O: Intake/Output Summary (Last 24 hours) at 01/24/18 1611 Last data filed at 01/24/18 1500 Gross per 24 hour Intake 770 ml Output 500 ml Net 270 ml Intake/Output Summary (Last 24 hours) at 01/24/18 0659 Last data filed at 01/24/18 0600 Gross per 24 hour Intake 650 ml Output 310 ml Net 340 ml General: ?NAD Neck: Trachea midline. No mass palpable Lungs: ?Clear to auscultation, no crackles or wheezing. CV: ?normal, Regular rate and rhythm, no rubs. ACCESS: RIJ tunneled. ?No secretions or erythema. Abd: + bowel sounds, no distension. Neuro: no asterixis, no focal deficits. Ext: ?+?edema LABS: Recent Labs 01/24/18 0600 01/23/18 0507 01/22/18 0100 01/21/18 1903 CREAT 3.64* 4.97* 4.00* -- BUN 17 29* 21 -- NA 134* 129* 130* -- K 4.6 4.9 4.8 -- CHLOR 95* 91* 95* -- CO2 28 22 27 -- GLUC 79 71* 90 -- CA 7.9* 7.9* 8.1* -- MG -- -- 1.7 -- P -- -- 4.7 -- ALB 2.2* 2.1* 2.0* -- WBC 3.32* 4.15 4.16 4.08 HB 7.4* 7.5* 7.6* 7.5* MCV 94.6 92.7 94.0 91.7 PLT 93* 94* 87* 82* IMPRESSION: 62 year old male with PMH including A-fibb, s/p AVR, history of CVA, Fe deficiency anemia and hemolytic anemia presented to [facility] as a transfer from [facility] on 12/24. ?Initial presentation to OSH was due to suspected GI bleed. Patient was transferred to [facility] upon worsening of renal function. ?S/p MVR 01/19/18 ? 1. 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 2. Electrolytes ?-Hyponatremia ? 3. Normocytic Anemia ?-Likely multifactorial cause including blood loss, hemolysis as well as acute renal failure ?-No concerning finding on BM bx. Below target. ?To start ?Aranesp 60 mcg/week on Thursday. ? 5. Volume Overload. Edema likely also exacerbated by hypoalbuminemia. ? No need for HOSPICE ART THERAPIST today. Please keep strict I/Os. Plan for next IHD tomorrow with low UF gicen possible renal recovery. Thank You for allowing us to participate in his care. Binu Christian MD. [facility] [phone] Staff. Nephrology and Hypertension. January 24, 2018 4:11 PM PROGRESS Observed: 01/24/2018 Status: COMPLETED Source: [place] 12:21 PM [facility] REPOSITORY HNO ID: [id number] Author: Lolis Cox (Fel) Service: Cardiac Surgery Author Type: Fellow Type: Progress Notes Filed: 01/24/2018 12:22 PM Note Text: Miguel AVR homograft epicardial lead pod4 Paced 80 BP ok on RA Labs ok Cr 3.6 On dialysis For device check and PT assessment Discharge in 2 days Lolis Cox MD CTS fellow PROGRESS Observed: 01/24/2018 Status: COMPLETED Source: [place] 7:40 AM [facility] REPOSITORY HNO ID: [id number] Author: Bridget Zapien (RtEve Edwards Service: Radiology Author Type: Spray Rig Operator Type: Progress Notes Filed: 01/24/2018 7:40 AM Note Text: Radiology Service Progress Note PATIENT NAME: Frank Rivera DATE OF SERVICE: January 24, 2018 TIME: 7:40 AM PATIENT IDENTITY VERIFICATION COMPLETED USING TWO (2) METHODS: Patient confirmed name verbally and ID band matches.. PATIENT GENDER DATA: Male PATIENT RELEVANT IMPLANT DATA REVIEWED: Yes RADIOLOGY DEPARTMENT: General X-ray: Exam(s) Completed: Chest X-Ray PERIPHERAL IV DATA: Not applicable SIGNED BY: RT Nithin January 24, 2018 7:40 AM XR CHEST 2V FRONTAL/LAT Observed: 01/24/2018 Status: F Source: [place] 7:39 AM [facility] REPOSITORY * * *Final Report* * * DATE OF EXAM: Jan 24 2018 7:39AM JIX [id number] - XR CHEST 2V FRONTAL/LAT / PROCEDURE REASON: Post-operative / post-procedure assessment, asymptomatic * * * * Physician Interpretation * * * * EXAMINATION: CHEST RADIOGRAPH (2 VIEW FRONTAL and LATERAL) Clinical History: Post-operative / post-procedure assessment, asymptomatic M: [id number]_4 Comparison: 2 days earlier RESULT: Lines, tubes, and devices: Interval removal of right IJ line and otherwise stable support lines and tubes. Lungs and pleura: Interstitial edema, moderate-sized right effusion and overlying opacity as well as smaller left effusion, not significantly changed from prior. No pneumothorax. Cardiomediastinal silhouette: Stable cardiac silhouette enlargement. Other: Degenerative changes of the thoracic spine. IMPRESSION: See Result. Loss Prevention Operations Manager: IDA Transcribe Date/Time: Jan 24 2018 4:11P Dictated by : LUIS HUERTA MD This examination was interpreted and the report reviewed and electronically signed by: LUIS HUERTA MD on Jan 24 2018 4:12PM EST [id number] CBC Collected: 01/24/2018 Status: F Source: [place] 6:00 AM [facility] REPOSITORY TYPE CODE TESTS RESULT OUT OF REFERENCE UNITS RANGE LAB WBC 3.70-11.00 k/uL Low WBC 3.32 LAB RBC 4.20-6.00 m/uL Low RBC 2.41 LAB HGB 13.0-17.0 g/dL Low Hemoglobin 7.4 LAB HCT 39.0-51.0 % Low Hematocrit 22.8 LAB MCV 80.0-100.0 fL MCV 94.6 LAB MCH 26.0-34.0 pG MCH 30.7 LAB MCHC 30.5-36.0 g/dL MCHC 32.5 LAB RDWCV 11.5-15.0 % RDW-CV High 18.7 LAB PLTCT 150-400 k/uL Low Platelet Count 93 Result Comment: No clot detected. LAB MPV 9.0-12.7 fL MPV 9.7 LAB ABSNUC <0.01 k/uL Absolute nRBC <0.01 Performed By: #### CBC, CMP #### [facility] [address] [place] [address] COMP METABOLIC PANEL Collected: 01/24/2018 Status: F Source: [place] 6:00 AM [facility] REPOSITORY TYPE CODE TESTS RESULT OUT OF REFERENCE UNITS RANGE LAB TP 6.3-8.0 g/dL Protein, Total 6.5 LAB ALB 3.9-4.9 g/dL Low Albumin 2.2 LAB CA 8.5-10.2 mg/dL Low Calcium, Total 7.9 LAB TBIL 0.2-1.3 mg/dL Bilirubin, Total 0.4 LAB ALKP 38-113 U/L Alkaline High Phosphatase 119 LAB AST 14-40 U/L AST 28 LAB GLU 74-99 mg/dL Glucose 79 Result Comment: The [place] Diabetes Association (ADA) provides guidance for cutoff values for fasting glucose and random glucose. The ADA defines fasting as no caloric intake for at least 8 hours. Fas ting plasma glucose results between 100 to 125 mg/dL indicate increased risk for diabetes (prediabetes). Fasting plasma glucose results greater than or equal to 126 mg/dL meet the criteria for diagnosis of diabetes. In the absence of unequivocal hyperglycemia, results should be confirmed by repeat testing. In a patient with classic symptoms of hyperglycemia or hyperglycemic crisis, random plasma glucose results greater than or equal to 200 mg/dL meet the criteria for diagnosis of diabetes. Reference: Standards of Medical Care in Diabetes 2016, [place] [employer] Association. Diabetes Care. 2016.39(Suppl 1). LAB BUN 9-24 mg/dL BUN 17 LAB CRET 0.73-1.22 mg/dL Creatinine High 3.64 LAB NA 136-144 mmol/L Low Sodium 134 LAB K 3.7-5.1 mmol/L Potassium 4.6 LAB CL 97-105 mmol/L Low Chloride 95 LAB CO2 22-30 mmol/L CO2 28 LAB AGAP 9-18 mmol/L Anion Gap 11 LAB ALT 10-54 U/L ALT 18 LAB GFRAA eGFR- Amer. 21 LAB GFRNAA . eGFR-All Other Races 17 Result Comment: eGFR (Estimated GFR) Units of measure: mL/min/1.73 meters squared eGFR is derived from the reexpressed MDRD Study equation using the following parameters: serum creatinine, age, gender and race. The creatinine assay has been calibrated to be traceable to IDMS. An eGFR <60 mL/min/1.73m2 for >3 months is consistent with chronic kidney disease. Refer to KDOQI guidelines for clinical interpretation. In patients with unstable renal function, e.g. those with acute kidney injury, the eGFR may not accurately reflect actual GFR. Performed By: #### CBC, CMP #### [facility] [employer] [facility] [address] [address] HEPATITIS B SURF. AG Collected: 01/23/2018 Status: F Source: [place]AN[place] 1:17 PM [facility] REPOSITORY TYPE CODE TESTS RESULT OUT OF REFERENCE UNITS RANGE LAB HBSAG Negative Hepatitis B Negative Surf. Ag Performed By: #### HBSAG, AHBSAG #### [facility] [employer] [address] [place] [address] HEPB SURFACE AB,QUAL Collected: 01/23/2018 Status: F Source: PLANO 1:17 PM [facility] REPOSITORY TYPE CODE TESTS RESULT OUT OF REFERENCE UNITS RANGE LAB AHBSAG Negative HepB Surface Negative Ab,Qual Result Comment: NEGATIVE Result rechecked. Performed By: #### HBSAG, AHBSAG #### [facility] [address] [place], [place] [address] PROGRESS Observed: 01/23/2018 Status: COMPLETED Source: [place] 12:57 PM [facility] HNO ID: [id number] Author: Adryan Rubalcava Service: Cardiac Surgery Author Type: Nurse Practitioner Type: Progress Notes Filed: 01/23/2018 12:58 PM Note Text: [facility] C[facility] POSTOP PROGRESS NOTE Day of Surgery:01/19/2018 S/P SURGERY: Reoperation second open-heart surgery. Aortic valve with root debridement and replacement with 26-mm aortic homograft. Tricuspid valve repair according to Gretta. Removal of pacemaker and permanent leads and placement of new epicardial leads on RV, LV, and right atrium and implantation of a new pacemaker. INTERVAL EVENTS / PERTINENT ROS: Uneventful night Having nose bleeds this morning Left CT drained 450cc Ambulating to the bathroom PT eval pending Scheduled for dialysis today Rhythm: V paced Intake/Output Summary (Last 24 hours) at 01/23/18 1257 Last data filed at 01/23/18 0900 Gross per 24 hour Intake 450 ml Output 715 ml Net -265 ml EKG: most recent image reviewed, most recent report reviewed TELE: most recent recordings reviewed CXR: most recent image reviewed, most recent report reviewed Echocardiogram: most recent report reviewed PHYSICAL EXAM: BP 99/63 Pulse 80 Temp 36.6 ?C (97.8 ?F) (Oral) Resp 20 Ht 193 cm (6' 4) Wt 111.9 kg (246 lb 12.8 oz) SpO2 92% BMI 30.04 kg/m? Neuro: AANDO x 3 moves all extremities with no apparent weakness CV: no jugular venous distention Heart Exam: RRR without murmur, gallop, or rubs. No ectopy. Resp: clear to auscultation bilaterally Abd: The abdomen is soft, nontender, nondistended; BS normal; no masses or organomegaly noted. Skin: Skin color, texture, turgor normal, no suspicious rashes or lesions Ext: Trace edema Surgical incisions: clean, dry and intact Chest tube: Yes: Greater than 200 mL output per 24 hours Pacer wires: No. HISTORY, ASSESSMENT AND PLAN: Problem Transition of Care Performed With Sharing of Clinical Summary Indication for Surgery: Infective endocarditis of aortic valve Preop LVEF: Normal RVF: mild Postop LVEF: Normal RVF: mild PMH/PSH: Atrial fibrillation /p PPM and DCCV in 04/2017 on apixaban 5mg BID on metoprolol 12.5mg BID, HTN ,Hypothyroidism Aortic Stenosis s/p bioprosthetic AVR (27mm St. 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 MICU transfer to initiate dialysis secondary to volume overload. CHANDRAKANT 01/01 showed AV vegitation. Airway Difficulty: Grade II - No special instrumentation Pacing Wires: No Chronological List of Surgeries and Major Events (Diagnosis): (Surgeries in bold characters) 01/19/2018: Prosthetic aortic valve explant, Homograft implant as valve/root/ascending aorta and reimplantation of coronary buttons Explant of right atrial and right ventricular endocardial leads and explant of generator left upper pectoral area Implant of epicardial leads on right atrium, right ventricule and left ventricle Pacemaker generator insertion left pre-rectus sheath A/P of Major Active Problems (excluding routine care and common problems): -s/p reimplantation PPM. Will need formal device check on Thursday -endocarditis. ID following. On Rocephin QD. RCW SYLVIA catheter intact -left CT drained 450cc -IRINA. RCW permacath intact. Dialysis today. nephro continue to follow -from [facility]. PT consulted. No DC date yet. 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 On Apixaban and BB pre-op. Assessment: V paced on telemetry Plan: check underlying rhythm on Thursday. Continue Coreg- now optimal dose. Home med Apixaban - discuss with CTS regarding AC. Htn (Hypertension) History: on hydralazine, lopressor at home Assessment: SBP 87-131 Plan: Continue coreg Pain, Postoperative, Acute History: postop Assessment: reports pain is controlled Plan: Optimize pain control w/ scheduled Lidoderm patches and Tylenol, prn Oxycodone Irina (Acute Kidney Injury) (Hcc) History: started dialysis 12/27/17. permacath dialysis access Assessment: Scr 4.97. oliguric Plan: Plan for next session IHD today. Renal following. DAILY STEP DOWN CHECKLIST FOR CATHETER RELATED INFECTION PREVENTION CVC, PICC, Sylvia and/or Permacath present? Yes - Sylvia - needed for IV antibiotics Does the patient have a urinary catheter beyond POD 2? No VTE Risk Assessment: High risk VTE Mechanical and/or Pharmacologic Prophylaxis: IPC Device, GCS and Subcutaneous Heparin Labs and medications reviewed in Epic Case discussed in depth with: Dr Cox SIGNATURE: Adryan Rubalcava APRN.CNP PATIENT NAME: Frank Rivera DATE: January 23, 2018 TIME: 12:57 PM PAGER/CONTACT #: [phone] CONSULT PROG Observed: 01/23/2018 Status: COMPLETED Source: [place] 11:17 AM [facility] REPOSITORY O ID: [id number] Author: Binu Christian Service: Nephrology Author Type: Physician Type: Consult Progress Note Filed: 01/23/2018 11:20 AM Note Text: Renal Consults F/U January 23, 2018 S: No major events. Dialysis needed to be postponed until today due to logistics with water in J3 room. Non oliguric now!!! Current hospital medications: oxymetazoline 0.05 % 2 [place] (GENASAL) 2 [place] EACH NOSTRIL BID ALPRAZolam 0.25 mg tab(s) (XANAX) 0.25 mg ORAL BID PRN 0.9% NaCl 3-5 mL 3-5 mL INTRAVENOUS q 12 H 0.9% NaCl 10 mL 10 mL INTRAVENOUS q 12 H aspirin 162 mg chewable tab(s) 162 mg ORAL DAILY potassium chloride ER 10-60 mEq tab(s) (K-DUR, KLOR-CON) 10- 60 mEq ORAL PRN therapeutic multivitamin 1 tablet tab(s) (THERA VITAMIN) 1 tablet ORAL DAILY WITH BREAKFAST pantoprazole DR 20 mg tab(s) (PROTONIX) 20 mg ORAL DAILY (6 AM) acetaminophen 650 mg tab(s) (TYLENOL) 650 mg ORAL q 4 H PRN bisacodyl 10 mg suppository (DULCOLAX) 10 mg RECTAL DAILY PRN sodium phosphate-sodium bisphosphate 133 mL enema (FLEET) 133 mL RECTAL PRN magnesium hydroxide 400 mg/5 mL 30 mL (MOM) 30 mL ORAL q 6 H PRN heparin 5,000 Units injection 5,000 Units SUBCUTANEOUS q 12 H [START ON 01/25/2018] Darbepoetin Tereza In Polysorbat 60 mcg injection (ARANESP) 60 mcg SUBCUTANEOUS q MON carvedilol 25 mg tab(s) (COREG) 25 mg ORAL BID w MEALS ondansetron (PF) 4 mg injection (ZOFRAN) 4 mg INTRAVENOUS q 6 H PRN lidocaine 5 % 1 Patch (LIDODERM) 1 Patch TRANSDERMAL DAILY lidocaine patch - REMOVE OTHER AT BEDTIME lidocaine - VERIFY PATCH OTHER q 8 H oxyCODONE IR 5-10 mg tab(s) (ROXICODONE) 5-10 mg ORAL/FEEDING TUBE q 6 H PRN doxycycline 100 mg in D5W 250 mL Vial-Mate (VIBRAMYCIN) 100 mg INTRAVENOUS q 12 H cefTRIAXone 2 g in D5W 100 mL MB+ (ROCEPHIN) 2 g INTRAVENOUS q 24 H calcium carbonate 1,000 mg chewable tab(s) (TUMS) 1,000 mg ORAL/FEEDING TUBE BID PRN sodium chloride 0.65 % 2 [place] (AYR, OCEAN) 2 [place] EACH NOSTRIL TID PRN [id number]-[id number] acid chewable tablet (CENTRUM) 1 tablet ORAL DAILY cholecalciferol 3,000 Units tab(s) (VITAMIN D3) 3,000 Units ORAL DAILY cyanocobalamin 500 mcg tab(s) (VITAMIN B-12) 500 mcg ORAL DAILY thiamine 100 mg tab(s) (VITAMIN B1) 100 mg ORAL DAILY diphenhydrAMINE 25 mg (BENADRYL) 25 mg ORAL q 6 H PRN tamsulosin ER 0.4 mg cap(s) (FLOMAX) 0.4 mg ORAL DAILY levothyroxine 200 mcg tab(s) (SYNTHROID) 200 mcg ORAL BEFORE BREAKFAST DAILY atorvastatin 80 mg tab(s) (LIPITOR) 80 mg ORAL AT BEDTIME PHYSICAL EXAM: Patient Vitals for the past 24 hrs: BP Temp Temp src Pulse Resp SpO2 Weight 01/23/18 1029 99/63 36.6 ?C (97.8 ?F) Oral 80 20 92 % - 01/23/18 0659 126/79 36.9 ?C (98.5 ?F) Oral 80 18 93 % - 01/23/18 0630 - - - - - - 111.9 kg (246 lb 12.8 oz) 01/23/18 0209 104/65 36.7 ?C (98 ?F) Oral 77 18 91 % - 01/22/18 2223 104/65 36.6 ?C (97.8 ?F) Oral 80 18 93 % - 01/22/182004 92/55 - - 80 - - - 01/22/18 1903 103/65 - - 80 - 93 % - 01/22/18 1856 87/59 36.8 ?C (98.2 ?F) Oral 80 18 90 % - 01/22/18 1830 111/78 - - 79 16 95 % - 01/22/18 1810 - - - 79 16 93 % - 01/22/18 1750 112/69 - - 80 16 96 % - 01/22/18 1730 118/77 - - 80 21 94 % - 01/22/18 1726 131/74 - - 80 - - - 01/22/18 1710 125/76 - - 80 14 95 % - 01/22/18 1650 - - - 79 16 95 % - 01/22/18 1630 117/75 - - 79 14 95 % - 01/22/18 1610 - - - 79 17 95 % - 01/22/18 1550 112/72 - - 79 21 95 % - 01/22/18 1530 107/62 36.6 ?C (97.9 ?F) Temporal Art 79 22 97 % - 01/22/18 1510 112/65 - - 80 21 96 % - 01/22/18 1450 - - - 80 18 95 % - 01/22/18 1430 103/66 - - 80 13 95 % - 01/22/18 1410 98/56 - - 80 12 94 % - 01/22/18 1350 - - - 80 11 95 % - 01/22/18 1330 92/56 - - 80 14 94 % - 01/22/18 1310 92/56 - - 80 21 94 % - 01/22/18 1304 - - - 84 20 94 % - 01/22/18 1250 - - - 79 24 95 % - 01/22/18 1230 - - - 79 21 95 % - 01/22/18 1210 - - - 79 13 96 % - 01/22/18 1150 - - - 79 12 97 % - 01/22/18 1130 - 36.7 ?C (98.1 ?F) Temporal Art 79 12 97 % - VS: Patient Vitals for the past 4 hrs: BP Pulse Temp Resp SpO2 01/23/18 1029 99/63 80 36.6 ?C (97.8 ?F) 20 92 % I/O: Intake/Output Summary (Last 24 hours) at 01/23/18 1117 Last data filed at 01/23/18 0900 Gross per 24 hour Intake 450 ml Output 795 ml Net -345 ml Intake/Output Summary (Last 24 hours) at 01/23/18 0659 Last data filed at 01/23/18 0600 Gross per 24 hour Intake 330 ml Output 1075 ml Net -745 ml General: ?NAD Neck: Trachea midline. No mass palpable Lungs: ?Clear to auscultation, no crackles or wheezing. CV: ?normal, Regular rate and rhythm, no rubs. ACCESS: RIJ tunneled. ?No secretions or erythema. Abd: + bowel sounds, no distension. Neuro: no asterixis, no focal deficits. Ext: ?+?edema LABS: Recent Labs 01/23/18 0507 01/22/18 0100 01/21/18 1903 01/21/18 1025 01/21/18 0410 01/20/18 1802 CREAT 4.97* 4.00* -- -- 3.31* -- -- BUN 29* 21 -- -- 15 -- -- NA 129* 130* -- -- 133* -- -- K 4.9 4.8 -- -- 4.5 -- -- CHLOR 91* 95* -- -- 96* -- -- CO2 22 27 -- -- 25 -- 30* GLUC 71* 90 -- -- 94 -- -- CA 7.9* 8.1* -- -- 7.9* -- -- MG -- 1.7 -- -- -- -- -- P -- 4.7 -- -- -- -- -- ALB 2.1* 2.0* -- -- 2.1* -- -- WBC 4.15 4.16 4.08 4.03 3.29* < > -- HB 7.5* 7.6* 7.5* 8.1* 8.1* < > -- MCV 92.7 94.0 91.7 92.5 92.9 < > -- PLT 94* 87* 82* 92* 86* < > -- < > = values in this interval not displayed. IMPRESSION: 62 year old male with PMH including A-fibb, s/p AVR, history of CVA, Fe deficiency anemia and hemolytic anemia presented to [facility] as a transfer from OSH on 12/24. ?Initial presentation to OSH was due to suspected GI bleed. Patient was transferred to [facility] upon worsening of renal function. ?S/p MVR 01/19/18 ? 1. 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 2. Electrolytes ?-Hyponatremia ? 3. Normocytic Anemia ?-Likely multifactorial cause including blood loss, hemolysis as well as acute renal failure ?-No concerning finding on BM bx. Below target. ?To start ?Aranesp 60 mcg/week on Thursday. ? 5. Volume Overload. Edema likely also exacerbated by hypoalbuminemia. ? ? Plans for IHD today. Quite impressed with his current UOP maybe showing of renal improvement. Will dialyze today with minimal UF. Plan for next session on Thursday as he still has some azotemia but hopefully we can stop HOSP[facility]ERAP[facility] altogether soon if he continues this way. Thank You for allowing us to participate in his care. Binu Christian MD. [facility] [phone] Staff. Nephrology and Hypertension. January 23, 2018 11:17 AM ECG COMPLETE W Observed: 01/23/2018 Status: F Source: [place] INTERPRETATION 8:06 AM [facility] REPOSITORY NAME : FRANK RIVERA PID : [id number] : 1955 Gender : Male Race : ORD : [id number] Procedure Date : Jan 23 2018 08:06:03 Edit Date : Jan 27 2018 15:04:10 Diagnosis:AV DUAL-PACED RHYTHM ABNORMAL ECG Confirmed by GOPAL STAPLETON M.D. ([id number]) on 01/27/2018 3:04:07 PM Ventricular Rate : 80 BPM Atrial Rate : 80 BPM P-R Interval : 176 ms QRS Duration : 178 ms Q-T Interval : 448 ms QTC Calculation(Bezet) : 516 ms R Killbuck : -83 degrees T Killbuck : 96 degrees Test Reason : C3 NEPHROPATHY Location : [id number] : [id number] Overread By : GOPAL STAPLETON M.D. Edited By : GOPAL STAPLETON M.D. Referred By : , Acquired by : AUDRA MCCARTHY CBC Collected: 01/23/2018 Status: F Source: [place] 5:07 AM [facility] REPOSITORY TYPE CODE TESTS RESULT OUT OF REFERENCE UNITS RANGE LAB WBC 3.70-11.00 k/uL WBC 4.15 LAB RBC 4.20-6.00 m/uL Low RBC 2.46 LAB HGB 13.0-17.0 g/dL Low Hemoglobin 7.5 LAB HCT 39.0-51.0 % Low Hematocrit 22.8 LAB MCV 80.0-100.0 fL MCV 92.7 LAB MCH 26.0-34.0 pG MCH 30.5 LAB MCHC 30.5-36.0 g/dL MCHC 32.9 LAB RDWCV 11.5-15.0 % RDW-CV High 18.6 LAB PLTCT 150-400 k/uL Low Platelet Count 94 Result Comment: No clot detected. LAB MPV 9.0-12.7 fL MPV 10.4 LAB ABSNUC <0.01 k/uL Absolute nRBC <0.01 Performed By: #### CBC, CMP #### [facility] [address] [place], [place] [address] COMP METABOLIC PANEL Collected: 01/23/2018 Status: F Source: [place] 5:07 AM [facility] REPOSITORY TYPE CODE TESTS RESULT OUT OF REFERENCE UNITS RANGE LAB TP 6.3-8.0 g/dL Low Protein, Total 6.2 LAB ALB 3.9-4.9 g/dL Low Albumin 2.1 LAB CA 8.5-10.2 mg/dL Low Calcium, Total 7.9 LAB TBIL 0.2-1.3 mg/dL Bilirubin, Total 0.4 LAB ALKP 38-113 U/L Alkaline Phosphatase 112 LAB AST 14-40 U/L AST 29 LAB GLU 74-99 mg/dL Low Glucose 71 Result Comment: The [place] Diabetes [employer] (ADA) provides guidance for cutoff values for fasting glucose and random glucose. The ADA defines fasting as no caloric intake for at least 8 hours. Fas ting plasma glucose results between 100 to 125 mg/dL indicate increased risk for diabetes (prediabetes). Fasting plasma glucose results greater than or equal to 126 mg/dL meet the criteria for diagnosis of diabetes. In the absence of unequivocal hyperglycemia, results should be confirmed by repeat testing. In a patient with classic symptoms of hyperglycemia or hyperglycemic crisis, random plasma glucose results greater than or equal to 200 mg/dL meet the criteria for diagnosis of diabetes. Reference: Standards of Medical Care in Diabetes 2016, [place] Diabetes Association. Diabetes Care. 2016.39(Suppl 1). LAB BUN 9-24 mg/dL BUN High 29 LAB CRET 0.73-1.22 mg/dL Creatinine High 4.97 LAB NA 136-144 mmol/L Low Sodium 129 LAB K 3.7-5.1 mmol/L Potassium 4.9 LAB CL 97-105 mmol/L Low Chloride 91 LAB CO2 22-30 mmol/L CO2 22 LAB AGAP 9-18 mmol/L Anion Gap 16 LAB ALT 10-54 U/L ALT 16 LAB GFRAA eGFR- Amer. 14 LAB GFRNAA . eGFR-All Other Races 12 Result Comment: eGFR (Estimated GFR) Units of measure: mL/min/1.73 meters squared eGFR is derived from the reexpressed MDRD Study equation using the following parameters: serum creatinine, age, gender and race. The creatinine assay has been calibrated to be traceable to IDMS. An eGFR <60 mL/min/1.73m2 for >3 months is consistent with chronic kidney disease. Refer to KDOQI guidelines for clinical interpretation. In patients with unstable renal function, e.g. those with acute kidney injury, the eGFR may not accurately reflect actual GFR. Performed By: #### CBC, CMP #### [facility] [address] [place], [place] [address] NURSING PROG Observed: 01/22/2018 Status: COMPLETED Source: [place] 7:00 PM [facility] REPOSITORY HNO ID: [id number] Author: Dilcia (Rn) DIEUDONNE Wright Service: Nursing Author Type: Registered Nurse Type: Nursing Progress Note Filed: 01/22/2018 8:32 PM Note Text: Admission/Transfer Note PATIENT NAME: Frank Rivera Patient transferred from [facility] via wheelchair in stable condition. Actions taken: Patient oriented to room, call light function, prescribed activities, Patient rights and Quiet at night. Skin assessed with DIEUDONNE Chaudhry - see NPR. Falls risk protocol initiated. Will continue to closely monitor. This note was completed by: Dilcia Wright RN GASA + ALL Collected: 01/22/2018 Status: F Source: [place] FOR 3:39 PM [facility] RADIANCE USE ONLY REPOSITORY TYPE CODE TESTS RESULT OUT OF REFERENCE UNITS RANGE LAB PH 7.35-7.45 pH 7.39 LAB PCO2 34-46 mm Hg pCO2 40 LAB PO2 85-95 mm Hg pO2 112 High LAB BE mmol/L Base Excess NEG 1 LAB HCO3 22-26 mmol/L Bicarbonate 24 LAB CO2CT 22.0-28.0 mmol/L CO2 Content 25 LAB O2HB 95-98 % 96 Oxyhemoglobin, Art. LAB COHB 0-5.0 % 1.9 Carboxyhemoglobin ,Art LAB MHGB 0.4-1.5 % 1.1 Methemoglobin LAB TEMP C 37.0 Temperature, Body LAB PHTC 7.35-7.45 pH, Temp 7.39 Corrected LAB PCO2T 34-46 mm Hg pCO2, Temp 40 Correct LAB PO2T mm Hg pO2, Temp 112 Corrected LAB NAB 135-146 mmol/L 128 Low Sodium,Whole Bld LAB KWB 3.5-5.0 mmol/L Potassium, 4.3 Whole Bld LAB HGBB 13.0-17.0 g/dL 7.6 Low Hemoglobin,Total, ACL LAB HCTB 39.0-51.0 % Hematocrit, 24 Low ACL LAB IC 1.08-1.30 mmol/L Calcium, 1.14 Ion, WB LAB GLB 60-105 mg/dL 107 High Glucose,Whole Bld LAB LACT 0.5-2.2 mmol/L Lactate 1.3 LAB ABGCOM Blood Gas O2 Comm, Art Administration Result Comment: 2L NC Performed By: #### ALLBG #### [facility] [address] [place], [place] [address] CONSULT PROG Observed: 01/22/2018 Status: COMPLETED Source: [place] 3:02 PM [facility] REPOSITORY HNO ID: [id number] Author: Rohit Olivas Service: Infectious Disease Author Type: Physician Type: Consult Progress Note Filed: 01/22/2018 3:09 PM Note Text: INFECTIOUS DISEASE CONSULT SERVICE PROGRESS NOTE Patient Name: Frank Rivera POD # 3 SURGERY/PROCEDURE: Reoperation second open-heart surgery. Aortic valve with root debridement and replacement with 26-mm aortic homograft. Tricuspid valve repair according to Gretta. Removal of pacemaker and permanent leads and placement of new epicardial leads on RV, LV, and right atrium and implantation of a new pacemaker. Interval Events: Course reviewed Blood pressure better controlled Off nitro drip Tolerating antibiotics In addition to those reviewed and documented in the HPI all other systems reviewed and were negative. MEDICATIONS Medications reviewed. Current hospital medications: ALPRAZolam 0.25 mg tab(s) (XANAX) 0.25 mg ORAL BID PRN dextrose 40 % 15 g 15 g ORAL PRN glucagon 1 mg injection (GLUCAGEN) 1 mg INTRAMUSCULAR PRN dextrose 50 % 12.5 g injection 12.5 g INTRAVENOUS PRN insulin lispro injection (rapid acting) (HumaLOG) SUBCUTANEOUS w MEALS AND HS [START ON 01/25/2018] Darbepoetin Tereza In Polysorbat 60 mcg injection (ARANESP) 60 mcg SUBCUTANEOUS q MON hydrALAZINE 10 mg injection (APRESOLINE) 10 mg INTRAVENOUS q 4 H PRN carvedilol 25 mg tab(s) (COREG) 25 mg ORAL BID w MEALS pantoprazole DR 20 mg tab(s) (PROTONIX) 20 mg ORAL DAILY (6 AM) pantoprazole 20 mg CUP (PROTONIX) 20 mg ORAL/FEEDING TUBE DAILY (6 AM) senna-docusate 8.6-50 mg 1 tablet (SENNA-S) 1 tablet ORAL BID bisacodyl 10 mg suppository (DULCOLAX) 10 mg RECTAL DAILY PRN ondansetron (PF) 4 mg injection (ZOFRAN) 4 mg INTRAVENOUS q 6 H PRN potassium chloride iv piggyback 10 mEq/100mL 10 mEq INTRAVENOUS PRN potassium chloride iv piggyback 20 mEq/50 mL 20 mEq INTRAVENOUS PRN potassium chloride 40-120 mEq oral powder (KLOR-CON) 40-120 mEq ORAL/FEEDING TUBE PRN 0.9% NaCl 3-5 mL 3-5 mL INTRAVENOUS q 12 H 0.9% NaCl 10 mL 10 mL INTRAVENOUS q 12 H dextrose 50 % 12.5 g injection 12.5 g INTRAVENOUS PRN dextrose 5% in NaCl 0.2% iv infusion 5 mL/hr INTRAVENOUS CONTINUOUS nitroglycerin 50 mg in D5W 250 mL 5-200 mcg/min INTRAVENOUS CONTINUOUS nitroglycerin injection 100 mcg injection syringe 100 mcg INTRAVENOUS PRN PHENYLephrine 0.1 mg injection 100 mcg INTRAVENOUS PRN fentaNYL PIPELINE CONSTRUCTION INSPECTOR 20 mcg/mL in NaCl 0.9% 100 mL INTRAVENOUS CONTINUOUS naloxone 0.04 mg injection (NARCAN) 0.04 mg INTRAVENOUS PRN lidocaine 5 % 1 Patch (LIDODERM) 1 Patch TRANSDERMAL DAILY lidocaine patch - REMOVE OTHER AT BEDTIME lidocaine - VERIFY PATCH OTHER q 8 H fentaNYL 50 mcg/mL 25-75 mcg injection (SUBLIMAZE) 25-75 mcg INTRAVENOUS q 1 H PRN acetaminophen 1,000 mg tab(s) (TYLENOL) 1,000 mg ORAL q 6 H acetaminophen 1,000 mg CUP (TYLENOL) 1,000 mg NASOGASTRIC q 6 H [START ON 01/23/2018] acetaminophen 650 mg tab(s) (TYLENOL) 650 mg ORAL/FEEDING TUBE q 4 H PRN oxyCODONE IR 5-10 mg tab(s) (ROXICODONE) 5-10 mg ORAL/FEEDING TUBE q 6 H PRN aspirin 162 mg chewable tab(s) 162 mg ORAL/FEEDING TUBE DAILY propofol iv bolus 10-50 mg (DIPRIVAN) 10-50 mg INTRAVENOUS q 1 H PRN heparin 5,000 Units injection 5,000 Units SUBCUTANEOUS q 12 H labetalol 10 mg injection syringe (NORMODYNE) 10 mg INTRAVENOUS q 2 H PRN doxycycline 100 mg in D5W 250 mL Vial-Mate (VIBRAMYCIN) 100 mg INTRAVENOUS q 12 H cefTRIAXone 2 g in D5W 100 mL MB+ (ROCEPHIN) 2 g INTRAVENOUS q 24 H docusate sodium 100 mg cap(s) (COLACE) 100 mg ORAL BID PRN polyethylene glycol 3350 17 g packet (MIRALAX, GLYCOLAX) 17 g ORAL DAILY PRN senna-docusate 8.6-50 mg 1 tablet (SENNA-S) 1 tablet ORAL/FEEDING TUBE BID PRN calcium carbonate 1,000 mg chewable tab(s) (TUMS) 1,000 mg ORAL/FEEDING TUBE BID PRN sodium chloride 0.65 % 2 [place] (AYR, OCEAN) 2 [place] EACH NOSTRIL TID PRN hquizzuw-vkng-tflqf acid chewable tablet (CENTRUM) 1 tablet ORAL DAILY cholecalciferol 3,000 Units tab(s) (VITAMIN D3) 3,000 Units ORAL DAILY cyanocobalamin 500 mcg tab(s) (VITAMIN B-12) 500 mcg ORAL DAILY thiamine 100 mg tab(s) (VITAMIN B1) 100 mg ORAL DAILY diphenhydrAMINE 25 mg (BENADRYL) 25 mg ORAL q 6 H PRN tamsulosin ER 0.4 mg cap(s) (FLOMAX) 0.4 mg ORAL DAILY levothyroxine 200 mcg tab(s) (SYNTHROID) 200 mcg ORAL BEFORE BREAKFAST DAILY atorvastatin 80 mg tab(s) (LIPITOR) 80 mg ORAL AT BEDTIME Examination: BP 103/66 Pulse 80 Temp 36.4 ?C (97.5 ?F) (Temporal Artery) Resp 18 Ht 193 cm (6' 4) Wt 113.2 kg (249 lb 9 oz) SpO2 95% BMI 30.38 kg/m? Temp (24hrs), Av.5 ?C (97.7 ?F), Min:36.4 ?C (97.5 ?F), Max:36.6 ?C (97.9 ?F) General appearance: Resting in bed Skin: no rash Head: neg Eyes: anicteric Oropharynx: neg Neck: Negative, right IJ Back: not examined Lungs: CTA Heart: rrnl, S1 and S2 Abdomen: soft Extremities: Bilateral lower extremity edema Musculoskeletal: Negative Peripheral pulses: radial pulses palpable Tunneled dialysis catheter and Sylvia catheter in the right chest Sternotomy intact Exam unchanged as compared with 01/21 other than as edited above. Lab, Microbiology and Imaging Data: Personally reviewed imaging studies, laboratory results, and microbiology results. ASSESSMENT: 62-year-old with multiple medical problems including but not limited to atrial fibrillation, hypertension, and aortic stenosis status post aortic valve replacement in April 2017 with a permanent pacemaker placed shortly thereafter was transferred to our hospital on 12/24 for further evaluation of an acute kidney injury. He initially presented to an outside hospital on 12/19 for further evaluation of a new anemia and renal failure after presenting to his primary care physician with fatigue and shortness of breath. He was treated empirically with prednisone for a glomerular nephritis and transferred. 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 Positive serologies for antineutrophil cytoplasmic antibodies and myeloperoxidase. He is requiring renal replacement therapy. Notable aspects of his workup thus far from infectious disease perspective has included: 2 blood cultures 12/25-no growth to date Bartonella serologies-IgG for Bartonella henselae greater than 1:1024, IgG for Bartonella amato 1:1024 Transesophageal echocardiogram 01/01-2-3+ TR, 3+ AI, thickening of the aorto-mitral curtain and posterior LA wall suggestive of either hematoma or active infection, small mobile echodensity within the RA-vegetation versus thrombus CT chest cardiac 01/07-moderate diffuse leaflet calcification CT brain 01/07-no acute findings CT abdomen and pelvis 01/06-evolving large rectus sheath hematoma CT abdomen pelvis 01/17-rectus hematoma was stable craniocaudad dimensions but slight difference in axial configuration 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 Interestingly, despite his titers he has no obvious epidemiological link to this genus. In speaking with him and in reviewing his records there was no suspicion for endocarditis of the time of his operation in April. He continues to require renal replacement therapy. The patient was taken to the operating room on 01/19 and underwent SURGERY/PROCEDURE: Reoperation second open-heart surgery. Aortic valve with root debridement and replacement with 26-mm aortic homograft. Tricuspid valve repair according to Gretta. Removal of pacemaker and permanent leads and placement of new epicardial leads on RV, LV, and right atrium and implantation of a new pacemaker. . Operative findings: Vegetations on all 3 leaflets, partially dehisced valve, several penetrations into the annulus posteriorly under the left non-commissure and under the right non-commissure Operative cultures: No growth to date Histopathology: Specimen aortic valve-acute inflammation and focal calcification, cocci seen on GMS PCR: Pending He is being supported in the ICU. He is critically ill after a complex open heart surgery. Gradual progress thus far. RECOMMENDATIONS: Continue doxycycline - change to 100 mg po every 12 hours Continue ceftriaxone 2 g IV every 24 hours Await cultures and PCR from the operating room specimens Consolidate central access as much as possible - does he need the IJ with the working sylvia catheter? At this time expect his discharge regimen to be- Ceftriaxone 2 g IV every 24 hours Doxycycline 100 mg by mouth every 12 hours Treat until 03/02/18. COPAT rx electronically signed and available in the outpatient encounter section of [facility], placed January 22, 2018. I can see him back in 02/24 at 13:00. Assessment and plan unchanged as compared with 01/21 except as edited above. Monitoring for ongoing therapeutic and potential untoward effect of antibiotic therapy. I will be away from the Clinic until 02/01/18. If issues arise in my absence please page infectious disease on-call. Signature: Rohit Olivas MD Pager: [phone] CONSULT PROG Observed: 01/22/2018 Status: COMPLETED Source: [place] 1:15 PM [facility] REPOSITORY HNO ID: [id number] Author: Binu Christian Service: Nephrology Author Type: Physician Type: Consult Progress Note Filed: 01/22/2018 1:18 PM Note Text: Renal Consults F/U January 22, 2018 S: No major events. Undergoing thoracentesis. Off Nitro. Starting to make a bit more of urine. Current hospital medications: ALPRAZolam 0.25 mg tab(s) (XANAX) 0.25 mg ORAL BID PRN dextrose 40 % 15 g 15 g ORAL PRN glucagon 1 mg injection (GLUCAGEN) 1 mg INTRAMUSCULAR PRN dextrose 50 % 12.5 g injection 12.5 g INTRAVENOUS PRN insulin lispro injection (rapid acting) (HumaLOG) SUBCUTANEOUS w MEALS AND HS [START ON 01/25/2018] Darbepoetin Tereza In Polysorbat 60 mcg injection (ARANESP) 60 mcg SUBCUTANEOUS q MON hydrALAZINE 10 mg injection (APRESOLINE) 10 mg INTRAVENOUS q 4 H PRN carvedilol 25 mg tab(s) (COREG) 25 mg ORAL BID w MEALS pantoprazole DR 20 mg tab(s) (PROTONIX) 20 mg ORAL DAILY (6 AM) pantoprazole 20 mg CUP (PROTONIX) 20 mg ORAL/FEEDING TUBE DAILY (6 AM) senna-docusate 8.6-50 mg 1 tablet (SENNA-S) 1 tablet ORAL BID bisacodyl 10 mg suppository (DULCOLAX) 10 mg RECTAL DAILY PRN ondansetron (PF) 4 mg injection (ZOFRAN) 4 mg INTRAVENOUS q 6 H PRN potassium chloride iv piggyback 10 mEq/100mL 10 mEq INTRAVENOUS PRN potassium chloride iv piggyback 20 mEq/50 mL 20 mEq INTRAVENOUS PRN potassium chloride 40-120 mEq oral powder (KLOR-CON) 40-120 mEq ORAL/FEEDING TUBE PRN 0.9% NaCl 3-5 mL 3-5 mL INTRAVENOUS q 12 H 0.9% NaCl 10 mL 10 mL INTRAVENOUS q 12 H dextrose 50 % 12.5 g injection 12.5 g INTRAVENOUS PRN dextrose 5% in NaCl 0.2% iv infusion 5 mL/hr INTRAVENOUS CONTINUOUS nitroglycerin 50 mg in D5W 250 mL 5-200 mcg/min INTRAVENOUS CONTINUOUS nitroglycerin injection 100 mcg injection syringe 100 mcg INTRAVENOUS PRN PHENYLephrine 0.1 mg injection 100 mcg INTRAVENOUS PRN fentaNYL PIPELINE CONSTRUCTION INSPECTOR 20 mcg/mL in NaCl 0.9% 100 mL INTRAVENOUS CONTINUOUS naloxone 0.04 mg injection (NARCAN) 0.04 mg INTRAVENOUS PRN lidocaine 5 % 1 Patch (LIDODERM) 1 Patch TRANSDERMAL DAILY lidocaine patch - REMOVE OTHER AT BEDTIME lidocaine - VERIFY PATCH OTHER q 8 H fentaNYL 50 mcg/mL 25-75 mcg injection (SUBLIMAZE) 25-75 mcg INTRAVENOUS q 1 H PRN acetaminophen 1,000 mg tab(s) (TYLENOL) 1,000 mg ORAL q 6 H acetaminophen 1,000 mg CUP (TYLENOL) 1,000 mg NASOGASTRIC q 6 H [START ON 01/23/2018] acetaminophen 650 mg tab(s) (TYLENOL) 650 mg ORAL/FEEDING TUBE q 4 H PRN oxyCODONE IR 5-10 mg tab(s) (ROXICODONE) 5-10 mg ORAL/FEEDING TUBE q 6 H PRN aspirin 162 mg chewable tab(s) 162 mg ORAL/FEEDING TUBE DAILY propofol iv bolus 10-50 mg (DIPRIVAN) 10-50 mg INTRAVENOUS q 1 H PRN heparin 5,000 Units injection 5,000 Units SUBCUTANEOUS q 12 H labetalol 10 mg injection syringe (NORMODYNE) 10 mg INTRAVENOUS q 2 H PRN doxycycline 100 mg in D5W 250 mL Vial-Mate (VIBRAMYCIN) 100 mg INTRAVENOUS q 12 H cefTRIAXone 2 g in D5W 100 mL MB+ (ROCEPHIN) 2 g INTRAVENOUS q 24 H docusate sodium 100 mg cap(s) (COLACE) 100 mg ORAL BID PRN polyethylene glycol 3350 17 g packet (MIRALAX, GLYCOLAX) 17 g ORAL DAILY PRN senna-docusate 8.6-50 mg 1 tablet (SENNA-S) 1 tablet ORAL/FEEDING TUBE BID PRN calcium carbonate 1,000 mg chewable tab(s) (TUMS) 1,000 mg ORAL/FEEDING TUBE BID PRN sodium chloride 0.65 % 2 [place] (AYR, OCEAN) 2 [place] EACH NOSTRIL TID PRN aviuxahy-ieyd-zvfdf acid chewable tablet (CENTRUM) 1 tablet ORAL DAILY cholecalciferol 3,000 Units tab(s) (VITAMIN D3) 3,000 Units ORAL DAILY cyanocobalamin 500 mcg tab(s) (VITAMIN B-12) 500 mcg ORAL DAILY thiamine 100 mg tab(s) (VITAMIN B1) 100 mg ORAL DAILY diphenhydrAMINE 25 mg (BENADRYL) 25 mg ORAL q 6 H PRN tamsulosin ER 0.4 mg cap(s) (FLOMAX) 0.4 mg ORAL DAILY levothyroxine 200 mcg tab(s) (SYNTHROID) 200 mcg ORAL BEFORE BREAKFAST DAILY atorvastatin 80 mg tab(s) (LIPITOR) 80 mg ORAL AT BEDTIME PHYSICAL EXAM: Patient Vitals for the past 24 hrs: BP Temp Temp src Pulse Resp SpO2 01/22/18 1304 - - - 84 20 94 % 01/22/18 1250 - - - 79 24 95 % 01/22/18 1230 - - - 79 21 95 % 01/22/18 1210 - - - 79 13 96 % 01/22/18 1150 - - - 79 12 97 % 01/22/18 1130 - - - 79 12 97 % 01/22/18 1110 - - - 79 15 96 % 01/22/18 1050 - - - 79 (!) 31 94 % 01/22/18 1030 - - - 79 12 96 % 01/22/18 1010 - - - 79 15 97 % 01/22/18 0950 - - - 80 13 97 % 01/22/18 0930 - - - 80 19 97 % 01/22/18 0910 - - - 80 15 98 % 01/22/18 0850 - - - 80 18 97 % 01/22/18 0840 - - - 80 17 96 % 01/22/18 0830 - - - 80 14 96 % 01/22/18 0820 - - - 80 17 97 % 01/22/18 0810 - - - 80 22 96 % 01/22/18 0800 - - - 79 11 98 % 01/22/18 0750 - - - 79 10 96 % 01/22/18 0740 - - - 79 19 97 % 01/22/18 0730 - - - 79 12 97 % 01/22/18 0710 - - - 79 13 96 % 01/22/18 0709 - 36.4 ?C (97.5 ?F) Temporal Art - - - 01/22/18 0700 - - - 79 13 97 % 01/22/18 0620 - - - 79 11 97 % 01/22/18 0600 - - - 79 15 95 % 01/22/18 0540 - - - 79 22 95 % 01/22/18 0520 - - - 79 9 95 % 01/22/18 0511 - - - 79 11 95 % 01/22/18 0500 - - - 79 15 95 % 01/22/18 0440 - - - 79 11 95 % 01/22/18 0420 - - - 79 11 95 % 01/22/18 0400 - - - 79 10 96 % 01/22/18 0340 - - - 79 14 96 % 01/22/18 0320 - - - 79 24 96 % 01/22/18 0300 - - - 79 14 97 % 01/22/18 0240 - - - 79 13 96 % 01/22/18 0220 - - - 79 14 96 % 01/22/18 0200 - - - 80 16 96 % 01/22/18 0140 - - - 80 15 94 % 01/22/18 0120 - - - 80 20 96 % 01/22/18 0100 - - - 80 12 96 % 01/22/18 0052 - - - 80 14 95 % 01/22/18 0040 - - - 80 25 96 % 01/22/18 0020 - - - 80 17 96 % 01/22/18 0000 - - - 80 10 95 % 01/21/18 2340 - - - 80 16 96 % 01/21/18 2320 - - - 80 15 97 % 01/21/18 2300 - - - 80 14 96 % 01/21/18 2240 - - - 80 16 96 % 01/21/18 2220 - - - 80 19 96 % 01/21/18 2200 - - - 79 - 95 % 01/21/18 2140 - - - 79 - 97 % 01/21/182109 - - - 79 - 97 % 01/21/182049 - - - 80 - 96 % 01/21/182019 - - - 79 - 97 % 01/21/182004 - - - 79 - 97 % 01/21/181999 - - - 79 - 97 % 01/21/18 1950 - - - 79 - 97 % 01/21/18 193 - - - 79 - 97 % 01/21/18 190 - - - 79 16 97 % 01/21/18 1900 - 36.6 ?C (97.9 ?F) Oral - - - 01/21/18 1850 - - - 79 - 97 % 01/21/18 1830 - - - 79 - 98 % 01/21/18 1810 - - - 79 - 97 % 01/21/18 1750 - - - 79 - 96 % 01/21/18 1730 - - - 79 - 96 % 01/21/18 1710 - - - 79 - 97 % 01/21/18 1650 - - - 80 - 98 % 01/21/18 1630 - - - 80 - 98 % 01/21/18 1610 119/73 - - 80 - 98 % 01/21/18 1550 114/74 - - 80 - 99 % 01/21/18 1530 110/72 - - 80 16 99 % 01/21/18 1510 - - - 79 - 98 % 01/21/18 1500 - 36.5 ?C (97.7 ?F) Oral - - - 01/21/18 1450 - - - 79 - 99 % 01/21/18 1430 - - - 79 - 97 % 01/21/18 1410 - - - 79 - 98 % 01/21/18 1350 - - - 79 - 98 % 01/21/18 1330 - - - 79 - 100 % VS: Patient Vitals for the past 4 hrs: Arterial BP 1 Pulse Resp SpO2 01/22/18 1304 - 84 20 94 % 01/22/18 1250 102/60 79 24 95 % 01/22/18 1230 108/66 79 21 95 % 01/22/18 1210 105/64 79 13 96 % 01/22/18 1150 107/65 79 12 97 % 01/22/18 1130 115/68 79 12 97 % 01/22/18 1110 108/64 79 15 96 % 01/22/18 1050 87/52 79 (!) 31 94 % 01/22/18 1030 103/62 79 12 96 % 01/22/18 1010 102/61 79 15 97 % 01/22/18 0950 103/59 80 13 97 % 01/22/18 0930 94/53 80 19 97 % I/O: Intake/Output Summary (Last 24 hours) at 01/22/18 1315 Last data filed at 01/22/18 1230 Gross per 24 hour Intake 1246 ml Output 515 ml Net 731 ml Intake/Output Summary (Last 24 hours) at 01/22/18 0659 Last data filed at 01/22/18 0600 Gross per 24 hour Intake 1246 ml Output 300 ml Net 946 ml General: ?NAD Neck: Trachea midline. No mass palpable Lungs: ?Clear to auscultation, no crackles or wheezing. CV: ?normal, Regular rate and rhythm, no rubs. ACCESS: RIJ tunneled. ?No secretions or erythema. Abd: + bowel sounds, no distension. Neuro: no asterixis, no focal deficits. Ext: ?+?edema LABS: Recent Labs 01/22/18 0100 01/21/18 1903 01/21/18 1025 01/21/18 0410 01/20/18 1802 01/20/18 0410 01/20/18 0350 01/19/182033 CREAT 4.00* -- -- 3.31* -- -- -- 4.23* -- 3.79* BUN 21 -- -- 15 -- -- -- 21 -- 20 NA 130* -- -- 133* -- -- -- 136 -- 137 K 4.8 -- -- 4.5 -- -- -- 5.0 -- 4.7 CHLOR 95* -- -- 96* -- -- -- 99 -- 98 CO2 27 -- -- 25 30* -- 28 25 < > 27 GLUC 90 -- -- 94 -- -- -- 126* -- 123* CA 8.1* -- -- 7.9* -- -- -- 8.0* -- 7.9* MG 1.7 -- -- -- -- -- -- -- -- -- P 4.7 -- -- -- -- -- -- -- -- -- ALB 2.0* -- -- 2.1* -- -- -- 2.1* -- -- WBC 4.16 4.08 4.03 3.29* -- < > -- 4.31 -- 5.01 HB 7.6* 7.5* 8.1* 8.1* -- < > -- 8.4* -- 8.9* MCV 94.0 91.7 92.5 92.9 -- < > -- 92.1 -- 91.2 PLT 87* 82* 92* 86* -- < > -- 94* -- 101* < > = values in this interval not displayed. IMPRESSION: 62 year old male with PMH including A-fibb, s/p AVR, history of CVA, Fe deficiency anemia and hemolytic anemia presented to [facility] as a transfer from OSH on 12/24. ?Initial presentation to OSH was due to suspected GI bleed. Patient was transferred to [facility] upon worsening of renal function. ?S/p MVR 01/19/18 ? 1. 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 2. Electrolytes ?-Hyponatremia ? 3. Normocytic Anemia ?-Likely multifactorial cause including blood loss, hemolysis as well as acute renal failure ?-No concerning finding on BM bx. Below target. ?To start ?Aranesp 60 mcg/week on Thursday. ? 5. Volume Overload. Edema likely also exacerbated by hypoalbuminemia. ? Plans for IHD today. Will need to be dialyzed either at full ICU bed or if stable enough in Q6. He seems to be starting to make some more urine but still oliguric. Thank You for allowing us to participate in his care. Binu Christian MD. [facility] [phone] Staff. Nephrology and Hypertension. January 22, 2018 1:15 PM GASA + ALL Collected: 01/22/2018 Status: F Source: [place] FOR 11:48 AM [facility] USE ONLY REPOSITORY TYPE CODE TESTS RESULT OUT OF REFERENCE UNITS RANGE LAB PH 7.35-7.45 pH 7.39 LAB PCO2 34-46 mm Hg pCO2 43 LAB PO2 85-95 mm Hg pO2 High 131 LAB BE mmol/L Base Excess 1 LAB HCO3 22-26 mmol/L Bicarbonate 25 LAB CO2CT 22.0-28.0 mmol/L CO2 Content 27 LAB O2HB 95-98 % Oxyhemoglobin, Art. 97 LAB COHB 0-5.0 % Carboxyhemoglobin, 2.0 Art LAB MHGB 0.4-1.5 % Methemoglobin 0.4 LAB TEMP C Temperature, Body 37.0 LAB PHTC 7.35-7.45 pH, Temp Corrected 7.39 LAB PCO2T 34-46 mm Hg pCO2, Temp Correct 43 LAB PO2T mm Hg pO2, Temp Corrected 131 LAB NAB 135-146 mmol/L Sodium,Whole Low Bld 129 LAB KWB 3.5-5.0 mmol/L Potassium, Whole Bld 4.5 LAB HGBB 13.0-17.0 g/dL Low Hemoglobin,Total,A 7.8 CL LAB HCTB 39.0-51.0 % Hematocrit, Low ACL 24 LAB IC 1.08-1.30 mmol/L Calcium, Ion, WB 1.20 LAB GLB 60-105 mg/dL Glucose,Whole Bld 71 LAB LACT 0.5-2.2 mmol/L Lactate 0.7 LAB ACBDTE Notify Date, Art 20180122 LAB ACBTME Notify Time, Art [id number] Performed By: #### ALLBG #### [facility] [address] [place] [id number] PROCEDURE Observed: 01/22/2018 Status: COMPLETED Source: [place] 11:03 AM [facility] REPOSITORY HNO ID: [id number] Author: Tiff Ingram Service: Critical Care Author Type: Anesthesiologist Type: Procedures Filed: 01/22/2018 1:04 PM Note Text: Ultrasound Guided Thoracentesis Procedure was performed by: Dr Ingram, Dr Castillo Informed consent: Yes, in EPIC Indication ? Patient requires placement of a transthoracic catheter for emergent removal of pleural fluid from right side Procedure in detail ? Using the linear probe covered in a sterile sheath, an area of fluid within the chest cavity was localized away from lung structures on the right chest ? The 8 Fr introducer needle was guided into the chest cavity into the pleural fluid under dynamic guidance ? Still images or video images were saved for this of this exam: No ? 850 ml of serosanguinous fluid was drained Conclusion ? Successful thoracentesis under ultrasound guidance. Anmol Castillo MD Pager [phone] I was present for the procedure. Tiff Ingram MD 01/22/2018 Ultrasound at the end of the procedure demonstrated minimal fluid and lung sliding. XR CHEST 1V FRONTAL Observed: 01/22/2018 Status: F Source: [facility] 10:43 AM [facility] REPOSITORY * * *Final Report* * * DATE OF EXAM: Jan 22 2018 10:43AM JIX [id number] - XR CHEST 1V FRONTAL PORT / PROCEDURE REASON: Post-operative / post-procedure assessment, asymptomatic * * * * Physician Interpretation * * * * EXAMINATION: CHEST RADIOGRAPH (PORTABLE SINGLE VIEW AP) Exam Date/Time: 01/22/2018 10:43 AM Clinical History: Post-operative / post-procedure assessment, asymptomatic, MQ: [id number] Comparison: Earlier same day at 4:43 AM RESULT: See impression. IMPRESSION: Lines, tubes, and devices: Right IJ sheath/catheter terminates about the level of the right brachiocephalic vein (and may relate to removal of PA catheter). Right IJ central venous catheters x2 redemonstrated. Chest tube noted angle to the left. Difficult to see and evaluate the mediastinum adequately. Epicardial leads partially visualized. Status post median sternotomy and left 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 ligation clip placement. Slightly rotated to the left. Lungs and pleura: Presumed skin fold shadow overlying the right inferolateral hemithorax. Stable to improved opacities, suggestive of bilateral pleural effusions (smaller versus redistributed?), associated atelectasis/consolidation and pulmonary edema (possibly improving). Other processes such as aspiration or infection not excluded if clinical picture fits. Cardiomediastinal silhouette: Stable, enlarged cardiomediastinal silhouette. Faint atherosclerotic calcifications of the aortic arch region. Other: . Loss Prevention Operations Manager: PSCB Transcribe Date/Time: Jan 22 2018 1:52P Dictated by : YULISSA FONTAINE MD This examination was interpreted and the report reviewed and electronically signed by: YULISSA FONTAINE MD on Jan 22 2018 1:56PM EST [id number] GASA + ALL Collected: 01/22/2018 Status: F Source: [facility] 8:21 AM [facility] USE ONLY REPOSITORY TYPE CODE TESTS RESULT OUT OF REFERENCE UNITS RANGE LAB PH 7.35-7.45 pH 7.43 LAB PCO2 34-46 mm Hg pCO2 39 LAB PO2 85-95 mm Hg pO2 High 105 LAB BE mmol/L Base Excess 2 LAB HCO3 22-26 mmol/L Bicarbonate 26 LAB CO2CT 22.0-28.0 mmol/L CO2 Content 27 LAB O2HB 95-98 % Oxyhemoglobin, Art. 96 LAB COHB 0-5.0 % Carboxyhemoglobin, 1.7 Art LAB MHGB 0.4-1.5 % Methemoglobin 1.4 LAB TEMP C Temperature, Body 37.0 LAB PHTC 7.35-7.45 pH, Temp Corrected 7.43 LAB PCO2T 34-46 mm Hg pCO2, Temp Correct 39 LAB PO2T mm Hg pO2, Temp Corrected 105 LAB NAB 135-146 mmol/L Sodium,Whole Low Bld 127 LAB KWB 3.5-5.0 mmol/L Potassium, Whole Bld 4.5 LAB HGBB 13.0-17.0 g/dL Low Hemoglobin,Total,A 8.4 CL LAB HCTB 39.0-51.0 % Hematocrit, Low ACL 26 LAB IC 1.08-1.30 mmol/L Calcium, Ion, WB 1.17 LAB GLB 60-105 mg/dL Glucose,Whole Bld 99 LAB LACT 0.5-2.2 mmol/L Lactate 0.7 LAB ACBDTE Notify Date, Art 20180122 LAB ACBTME Notify Time, Art Performed By: #### ALLBG #### [facility] [address] [place] [address] PROGRESS Observed: 01/22/2018 Status: COMPLETED Source: [place] 5:14 AM [facility] REPOSITORY HNO ID: [id number] Author: Melba Rider (Ruby Developer) Idania Service: Critical Care Author Type: Nurse Practitioner Type: Progress Notes Filed: 01/22/2018 5:22 AM Note Text: [facility] Note Name: Frank Rivera Coordination of Care Note: Indication for Surgery: Infective endocarditis of aortic valve Preop LVEF: Normal RVF: mild Postop LVEF: Normal RVF: mild Important/Relevant PMH/PSH: Atrial fibrillation /p PPM and DCCV in 04/2017 on apixaban 5mg BID on metoprolol 12.5mg BID, HTN ,Hypothyroidism Aortic Stenosis s/p bioprosthetic AVR (27mm St. 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 MICU transfer to initiate dialysis secondary to volume overload. CHANDRAKANT 01/01 showed AV vegitation. Airway Difficulty: Grade II - No special instrumentation Pacing Wires: No Chronological List of Surgeries and Major Events (Diagnosis): (Surgeries in bold characters) 01/19/2018: Prosthetic aortic valve explant, Homograft implant as valve/root/ascending aorta and reimplantation of coronary buttons Explant of right atrial and right ventricular endocardial leads and explant of generator left upper pectoral area Implant of epicardial leads on right atrium, right ventricule and left ventricle Pacemaker generator insertion left pre-rectus sheath A/P of Major Active Problems (excluding routine care and common problems): Resp Initially required HF NC, wean to 3L NC. Continue BPH CV HTN: On nitroglycerin gtt for goal MAP 65-75, increased BB and Hydral. H/o Afib - has a PPM. 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 on 12/27/2017, last session on 01/20 ID: Bartonella positive, on IV doxycycline and ceftriaxone per ID To Do or to Watch: - Wean NTG, add agent as needed (Coreg optimal dose, Hydral increased) - Discuss w/ CTS re: resumption of AC (pre-op on Apixaban for h/o AF) -Transfer to SDU once off NTG -Monitor CT output once up in the chair Discharge Planning: Anticipated Discharge Date: TBD Barriers to Discharge: Unknown Care Management Discharge Needs: Needs Prior to Discharge: To Be Determined;Facility or Agency Choices;Procedure;Other: See Comment Other Problems I Reviewed and/or Managed During This Encounter: Problem 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 On Apixaban and BB pre-op. A/P: PPM at 80. Last pacer check underlying rhythm SB. Continue Coreg- now optimal dose. Home med Apixaban - discuss with CTS regarding AC. Device check to ascertain underlying rhythm. Htn (Hypertension) History: on hydralazine, lopressor at home A/P: Currently on Nitroglycerin gtt, titrate to maintain MAP 65-75. Optimize Coreg dose and increase Hydral dose. Add agent as needed Stress Hyperglycemia No h/o DM. Haley-operative insulin resistance and exacerbation of hyperglycemia. SSI. Rectus Sheath Hematoma History: Pt with hematoma found on CT. Had renal Bx at OSH? Assessment: Stable by repeat CT Plan: Monitor Anemia History: Hx FE, B12 deficiencies, UGI bleeds, Heyde's syndrome Assessment: BMBx - Normocytic anemia with anisocytosis and no increased schistocytes or spherocytes. Thrombocytopenia. Iron studies suggest anmeia of chronic disease Plan: Started Aranesp 60 mcg/week Pancytopenia (Hcc) History: Hx anemia, FE, B12 Assessment: BMBX Normocytic anemia with anisocytosis Plan: Hematology signed off. Pain, Postoperative, Acute -Optimize pain control w/ Fentanyl PIPELINE CONSTRUCTION INSPECTOR, scheduled Lidoderm patches and Tylenol, prn Oxycodone Irina (Acute Kidney Injury) ([facility]) -Pt is oliguric. Plan for next session on Monday 01/22. Renal following. Cva, Old, Dysphagia History: Remote Assessment: Mild dysphagia Plan: Neuro cleared pt for OHS. No new neuro deficits Malnutrition of Moderate Degree (Hcc) History: Per nutrition Assessment: In the context of Acute Illness or Injury based on: Insufficient Energy Intake: <75% for >7 days Subcutaneous Fat Loss: Mild Loss Muscle Loss Mild Loss A/P: Heart healthy diet started PHYSICAL EXAM: Neuro: Awake, Follows commands and WAY Cardiovascular: Rhythm: regular rate and rhythm and Rate:paced Pulmonary: Breath sounds equal and Diminished breath sounds Ventilator: N/A, patient is extubated CXR Findings: B pleural effusions, Pulmonary interstitial edema, Atelectasis Gastrointestinal: Abdominal: Soft and Non-tender DAILY CVICU CHECKLIST VTE Prophylaxis: Pharmacologic Yes VTE Prophylaxis: Mechanical: Yes Line infection prevention: Can CVC, PAC or arterial line be removed: No Continued need for urinary catheter: Yes - clinical indication: Patient post major surgery requiring fluid balance and input and output measurement. Restraints needed: No SIGNATURE: Melba Emerson, PROFESSIONAL SPORTS SCOUTTORREY DATE of SERVICE: 01/22/2018 TIME of SERVICE: 5:14 AM XR CHEST 1V FRONTAL Observed: 01/22/2018 Status: F Source: [facility] 4:43 AM [facility] REPOSITORY * * *Final Report* * * DATE OF EXAM: Jan 22 2018 4:43AM JIX [id number] - XR CHEST 1V FRONTAL PORT / PROCEDURE REASON: Chest pain or SOB, pleurisy or effusion suspected * * * * Physician Interpretation * * * * EXAMINATION: CHEST RADIOGRAPH (PORTABLE SINGLE VIEW AP) Exam Date/Time: 01/22/2018 4:43 AM Clinical History: Chest pain or SOB, pleurisy or effusion suspected, MQ: XCPMC_5 Comparison: 1 day prior RESULT: See impression. IMPRESSION: Lines, tubes, and devices: Multiple life support devices noted, although mediastinal drainage tubes are difficult to evaluate and some of them may have been removed ( left chest tube visible). Status post median sternotomy and left 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 ligation clip placement. No longer rotated. Lungs and pleura: Increased opacities, right side worse the left, suggestive of pleural effusions and associated atelectasis/consolidation and probable pulmonary edema. Other processes such as aspiration or infection not excluded if clinical picture fits. Cardiomediastinal silhouette: Stable , enlarged cardiomediastinal silhouette. Question faint atherosclerotic calcifications of the aorta. Other: . Loss Prevention Operations Manager: IDA Transcribe Date/Time: Jan 22 2018 10:33A Dictated by : YULISSA FONTAINE MD This examination was interpreted and the report reviewed and electronically signed by: YULISSA FONTAINE MD on Jan 22 2018 10:37AM EST [id number] Collected: 01/22/2018 Status: F Source: [place] 1:[address] [facility] REPOSITORY TYPE CODE TESTS RESULT OUT OF REFERENCE UNITS RANGE LAB WBC 3.70-11.00 k/uL WBC 4.16 LAB RBC 4.20-6.00 m/uL Low RBC 2.52 LAB HGB 13.0-17.0 g/dL Low Hemoglobin 7.6 LAB HCT 39.0-51.0 % Low Hematocrit 23.7 LAB MCV 80.0-100.0 fL MCV 94.0 LAB MCH 26.0-34.0 pG MCH 30.2 LAB MCHC 30.5-36.0 g/dL MCHC 32.1 LAB RDWCV 11.5-15.0 % RDW-CV High 18.1 LAB PLTCT 150-400 k/uL Low Platelet Count 87 Result Comment: No clot detected. LAB MPV 9.0-12.7 fL MPV 10.6 LAB ABSNUC <0.01 k/uL Absolute nRBC <0.01 Performed By: #### CBC, CMP, MG1, PHOS #### [facility] [address] [place], [place] [address] COMP METABOLIC PANEL Collected: 01/22/2018 Status: F Source: [place] 1:[address] [facility] REPOSITORY TYPE CODE TESTS RESULT OUT OF REFERENCE UNITS RANGE LAB TP 6.3-8.0 g/dL Low Protein, Total 5.9 LAB ALB 3.9-4.9 g/dL Low Albumin 2.0 LAB CA 8.5-10.2 mg/dL Low Calcium, Total 8.1 LAB TBIL 0.2-1.3 mg/dL Bilirubin, Total 0.4 LAB ALKP 38-113 U/L Alkaline Phosphatase 103 LAB AST 14-40 U/L AST 34 LAB GLU 74-99 mg/dL Glucose 90 Result Comment: The [place] Diabetes Association (ADA) provides guidance for cutoff values for fasting glucose and random glucose. The ADA defines fasting as no caloric intake for at least 8 hours. Fas ting plasma glucose results between 100 to 125 mg/dL indicate increased risk for diabetes (prediabetes). Fasting plasma glucose results greater than or equal to 126 mg/dL meet the criteria for diagnosis of diabetes. In the absence of unequivocal hyperglycemia, results should be confirmed by repeat testing. In a patient with classic symptoms of hyperglycemia or hyperglycemic crisis, random plasma glucose results greater than or equal to 200 mg/dL meet the criteria for diagnosis of diabetes. Reference: Standards of Medical Care in Diabetes 2016, [place] Diabetes Association. Diabetes Care. 2016.39(Suppl 1). LAB BUN 9-24 mg/dL BUN 21 LAB CRET 0.73-1.22 mg/dL Creatinine High 4.00 LAB NA 136-144 mmol/L Low Sodium 130 LAB K 3.7-5.1 mmol/L Potassium 4.8 LAB CL 97-105 mmol/L Low Chloride 95 LAB CO2 22-30 mmol/L CO2 27 LAB AGAP 9-18 mmol/L Low Anion Gap 8 LAB ALT 10-54 U/L ALT 23 LAB GFRAA eGFR- Amer. 19 LAB GFRNAA . eGFR-All Other Races 15 Result Comment: eGFR (Estimated GFR) Units of measure: mL/min/1.73 meters squared eGFR is derived from the reexpressed MDRD Study equation using the following parameters: serum creatinine, age, gender and race. The creatinine assay has been calibrated to be traceable to IDMS. An eGFR <60 mL/min/1.73m2 for >3 months is consistent with chronic kidney disease. Refer to KDOQI guidelines for clinical interpretation. In patients with unstable renal function, e.g. those with acute kidney injury, the eGFR may not accurately reflect actual GFR. Performed By: #### CBC, CMP, MG1, PHOS #### [facility] [employer] [address] [place] [address] MAGNESIUM Collected: 01/22/2018 Status: F Source: [place] 1:[address] [facility] REPOSITORY TYPE CODE TESTS RESULT OUT OF REFERENCE UNITS RANGE LAB MG 1.7-2.3 mg/dL Magnesium 1.7 Performed By: #### CBC, CMP, MG1, PHOS #### [facility] [employer] [address] [place] [address] PHOSPHORUS Collected: 01/22/2018 Status: F Source: [place] 1:[address] [facility] REPOSITORY TYPE CODE TESTS RESULT OUT OF REFERENCE UNITS RANGE LAB PHOS 2.7-4.8 mg/dL Phosphorus 4.7 Performed By: #### CBC, CMP, MG1, PHOS #### [facility] [address] [place], [place] [address] HOSP Observed: 01/22/2018 Status: COMPLETED Source: [place] 12:00 AM [facility] REPOSITORY Patient Update (HSIDMN) FRANK RIVERA ([id number]) 1955 M [facility] Date Time Provider Department 01/22/18 ROHIT OLIVAS HSIDMN During your visit today, we recorded the following information about you: Allergies As of Date: 01/22/2018 Noted Allergy Reaction PENICILLIN 12/24/2017 4 - Hives Date Reviewed: 01/22/2018 Reviewed by: Oksana (Rn) DIEUDONNE Osullivan - Fully Assessed Reason for Visit: CoPat Start [1679] Prescriptions as of 01/22/2018 Sig: ATORVASTATIN 80 MG TABLET Take 80 mg by mouth once charleen* LEVOTHYROXINE 200 MCG TABLET Take 200 mcg by mouth daily b* CYANOCOBALAMIN (VIT B-12) 100* Take 500 mcg by mouth once da* X HYDRALAZINE 25 MG TABLET Take 25 mg by mouth every 8 h* X ASCORBIC ACID-ASCORBATE SODIU* Take 500 mg by mouth once azucena* X MAGNESIUM 200 MG ( MAGNESIU* Take 2 tablets by mouth once * X METOPROLOL TARTRATE 25 MG TAB* Take 12.5 mg by mouth twice d* X FERROUS SULFATE 325 MG (65 MG* Take 325 mg by mouth daily wi* X PREDNISONE 20 MG TABLET Take 60 mg by mouth once charleen* X PANTOPRAZOLE 20 MG TABLET,DEL* Take 40 mg by mouth twice azucena* X APIXABAN 5 MG TABLET Take 5 mg by mouth twice charleen* Problem List As Of Date 01/22/2018 Noted Resolved IRINA (acute kidney injury) (HCC) [N17.9] INVALID FOR* Priority: K More... Malnutrition of moderate degree (HCC) [E44.0] INVALID FOR* Priority: M More... Hyperkalemia [E87.5] INVALID FOR*01/13/2018 More... Rectus sheath hematoma [S30.1XXA] INVALID FOR* Priority: F More... Anemia [D64.9] INVALID FOR* Priority: H More... Pancytopenia (HCC) [D61.818] INVALID FOR* Priority: H More... Lymphadenopathy [R59.1] INVALID FOR*01/22/2018 More... Atrial fibrillation (HCC) [I48.91] INVALID FOR* Priority: C More... CVA, old, dysphagia [I69.391] INVALID FOR* Priority: L More... CAD (coronary artery disease) [I25.10] INVALID FOR*01/22/2018 More... HTN (hypertension) [I10] INVALID FOR* Priority: C More... Heyd's syndrome (HCC) [K76.7] INVALID FOR*01/22/2018 Priority: C More... Obesity, Class I, BMI 30-34.9 [E66.9] INVALID FOR*01/22/2018 Preop testing [Z01.818] INVALID FOR*01/22/2018 More... Subacute bacterial endocarditis [I33.0] INVALID FOR* Priority: A More... Intravenous catheter in place [Z97.8] INVALID FOR*01/21/2018 More... Stress hyperglycemia [R73.9] INVALID FOR* Priority: E More... Pain, postoperative, acute [G89.18] INVALID FOR* Priority: J More... Acute blood loss anemia [D62] INVALID FOR*01/22/2018 More... Classic SmartForms filed during this visit: CoPAT Start Encounter Status:Closed by ROHIT OLIVAS MD on 02/01/18 GASA + ALL Collected: 01/21/2018 Status: F Source: [facility] 7:44 PM [facility] USE ONLY REPOSITORY TYPE CODE TESTS RESULT OUT OF REFERENCE UNITS RANGE LAB PH 7.35-7.45 pH 7.42 LAB PCO2 34-46 mm Hg pCO2 39 LAB PO2 85-95 mm Hg pO2 High 116 LAB BE mmol/L Base Excess 1 LAB HCO3 22-26 mmol/L Bicarbonate 25 LAB CO2CT 22.0-28.0 mmol/L CO2 Content 27 LAB O2HB 95-98 % Oxyhemoglobin, Art. 96 LAB COHB 0-5.0 % Carboxyhemoglobin,A 1.9 rt LAB MHGB 0.4-1.5 % Methemoglobin 0.8 LAB TEMP C Temperature, Body 37.0 LAB PHTC 7.35-7.45 pH, Temp Corrected 7.42 LAB PCO2T 34-46 mm Hg pCO2, Temp Correct 39 LAB PO2T mm Hg pO2, Temp Corrected 116 LAB NAB 135-146 mmol/L Sodium,Whole Bld Low 130 LAB KWB 3.5-5.0 mmol/L Potassium, Whole Bld 4.6 LAB HGBB 13.0-17.0 g/dL Low Hemoglobin,Total,AC 7.9 L LAB HCTB 39.0-51.0 % Hematocrit, ACL Low 25 LAB IC 1.08-1.30 mmol/L Calcium, Ion, WB 1.15 LAB GLB 60-105 mg/dL Glucose,Whole Bld 105 LAB LACT 0.5-2.2 mmol/L Lactate 1.6 Performed By: #### ALLBG #### [facility] [address] [place], [place] [address] CBC Collected: 01/21/2018 Status: F Source: [place] 7:03 [facility] REPOSITORY TYPE CODE TESTS RESULT OUT OF REFERENCE UNITS RANGE LAB WBC 3.70-11.00 k/uL WBC 4.08 LAB RBC 4.20-6.00 m/uL Low RBC 2.52 LAB HGB 13.0-17.0 g/dL Low Hemoglobin 7.5 LAB HCT 39.0-51.0 % Low Hematocrit 23.1 LAB MCV 80.0-100.0 fL MCV 91.7 LAB MCH 26.0-34.0 pG MCH 29.8 LAB MCHC 30.5-36.0 g/dL MCHC 32.5 LAB RDWCV 11.5-15.0 % RDW-CV High 18.6 LAB PLTCT 150-400 k/uL Low Platelet Count 82 Result Comment: No clot detected. LAB MPV 9.0-12.7 fL MPV 10.3 LAB ABSNUC <0.01 k/uL Absolute nRBC <0.01 Performed By: #### CBC #### [facility] [address] [place], [place] [address] CONSULT PROG Observed: 01/21/2018 Status: COMPLETED Source: [place] 5:31 PM [facility] REPOSITORY HNO ID: [id number] Author: Binu Christian Service: Nephrology Author Type: Physician Type: Consult Progress Note Filed: 01/21/2018 5:34 PM Note Text: Renal ICU Consults F/U January 21, 2018 S: No major events. Anuric. Off pressors. Current hospital medications: [START ON 01/25/2018] Darbepoetin Tereza In Polysorbat 60 mcg injection (ARANESP) 60 mcg SUBCUTANEOUS q MON hydrALAZINE 30 mg tab(s) (APRESOLINE) 30 mg ORAL q 6 H carvedilol 12.5 mg tab(s) (COREG) 12.5 mg ORAL BID w MEALS hydrALAZINE 10 mg injection (APRESOLINE) 10 mg INTRAVENOUS q 4 H PRN ciprofloxacin 400 mg in D5W 200 mL (CIPRO) 400 mg INTRAVENOUS q 24 HR Chlorhexidine Gluconate 0.12 % 15 mL (PERIDEX) 15 mL ORAL q [address] 20 mg tab(s) (PROTONIX) 20 mg ORAL DAILY (6 AM) pantoprazole 20 mg CUP (PROTONIX) 20 mg ORAL/FEEDING TUBE DAILY (6 AM) senna-docusate 8.6-50 mg 1 tablet (SENNA-S) 1 tablet ORAL BID bisacodyl 10 mg suppository (DULCOLAX) 10 mg RECTAL DAILY PRN ondansetron (PF) 4 mg injection (ZOFRAN) 4 mg INTRAVENOUS q 6 H PRN potassium chloride iv piggyback 10 mEq/100mL 10 mEq INTRAVENOUS PRN potassium chloride iv piggyback 20 mEq/50 mL 20 mEq INTRAVENOUS PRN potassium chloride 40-120 mEq oral powder (KLOR-CON) 40-120 mEq ORAL/FEEDING TUBE PRN 0.9% NaCl 3-5 mL 3-5 mL INTRAVENOUS q 12 H 0.9% NaCl 10 mL 10 mL INTRAVENOUS q 12 H dextrose 50 % 12.5 g injection 12.5 g INTRAVENOUS PRN dextrose 5% in NaCl 0.2% iv infusion 5 mL/hr INTRAVENOUS CONTINUOUS insulin glargine 0-40 Units pen (long acting) (LANTUS SOLOSTAR, BASAGLAR KWIKPEN) 0-40 Units SUBCUTANEOUS As Directed nitroglycerin 50 mg in D5W 250 mL 5-200 mcg/min INTRAVENOUS CONTINUOUS nitroglycerin injection 100 mcg injection syringe 100 mcg INTRAVENOUS PRN PHENYLephrine 0.1 mg injection 100 mcg INTRAVENOUS PRN fentaNYL PIPELINE CONSTRUCTION INSPECTOR 20 mcg/mL in NaCl 0.9% 100 mL INTRAVENOUS CONTINUOUS naloxone 0.04 mg injection (NARCAN) 0.04 mg INTRAVENOUS PRN lidocaine 5 % 1 Patch (LIDODERM) 1 Patch TRANSDERMAL DAILY lidocaine patch - REMOVE OTHER AT BEDTIME lidocaine - VERIFY PATCH OTHER q 8 H fentaNYL 50 mcg/mL 25-75 mcg injection (SUBLIMAZE) 25-75 mcg INTRAVENOUS q 1 H PRN acetaminophen 1,000 mg tab(s) (TYLENOL) 1,000 mg ORAL q 6 H acetaminophen 1,000 mg CUP (TYLENOL) 1,000 mg NASOGASTRIC q 6 H [START ON 01/23/2018] acetaminophen 650 mg tab(s) (TYLENOL) 650 mg ORAL/FEEDING TUBE q 4 H PRN oxyCODONE IR 5-10 mg tab(s) (ROXICODONE) 5-10 mg ORAL/FEEDING TUBE q 6 H PRN aspirin 162 mg chewable tab(s) 162 mg ORAL/FEEDING TUBE DAILY propofol iv bolus 10-50 mg (DIPRIVAN) 10-50 mg INTRAVENOUS q 1 H PRN heparin 5,000 Units injection 5,000 Units SUBCUTANEOUS q 12 H labetalol 10 mg injection syringe (NORMODYNE) 10 mg INTRAVENOUS q 2 H PRN doxycycline 100 mg in D5W 250 mL Vial-Mate (VIBRAMYCIN) 100 mg INTRAVENOUS q 12 H cefTRIAXone 2 g in D5W 100 mL MB+ (ROCEPHIN) 2 g INTRAVENOUS q 24 H docusate sodium 100 mg cap(s) (COLACE) 100 mg ORAL BID PRN polyethylene glycol 3350 17 g packet (MIRALAX, GLYCOLAX) 17 g ORAL DAILY PRN senna-docusate 8.6-50 mg 1 tablet (SENNA-S) 1 tablet ORAL/FEEDING TUBE BID PRN calcium carbonate 1,000 mg chewable tab(s) (TUMS) 1,000 mg ORAL/FEEDING TUBE BID PRN sodium chloride 0.65 % 2 [place] (AYR, OCEAN) 2 [place] EACH NOSTRIL TID PRN xyiuslbf-bemj-ezrll acid chewable tablet (CENTRUM) 1 tablet ORAL DAILY cholecalciferol 3,000 Units tab(s) (VITAMIN D3) 3,000 Units ORAL DAILY cyanocobalamin 500 mcg tab(s) (VITAMIN B-12) 500 mcg ORAL DAILY thiamine 100 mg tab(s) (VITAMIN B1) 100 mg ORAL DAILY diphenhydrAMINE 25 mg (BENADRYL) 25 mg ORAL q 6 H PRN tamsulosin ER 0.4 mg cap(s) (FLOMAX) 0.4 mg ORAL DAILY levothyroxine 200 mcg tab(s) (SYNTHROID) 200 mcg ORAL BEFORE BREAKFAST DAILY atorvastatin 80 mg tab(s) (LIPITOR) 80 mg ORAL AT BEDTIME PHYSICAL EXAM: Patient Vitals for the past 24 hrs: BP Temp Temp src Pulse Resp SpO2 01/21/18 1650 - - - 80 - 98 % 01/21/18 1630 - - - 80 - 98 % 01/21/18 1610 119/73 - - 80 - 98 % 01/21/18 1550 114/74 - - 80 - 99 % 01/21/18 1530 110/72 - - 80 16 99 % 01/21/18 1510 - - - 79 - 98 % 01/21/18 1500 - 36.5 ?C (97.7 ?F) Oral - - - 01/21/18 1450 - - - 79 - 99 % 01/21/18 1430 - - - 79 - 97 % 01/21/18 1410 - - - 79 - 98 % 01/21/18 1350 - - - 79 - 98 % 01/21/18 1330 - - - 79 - 100 % 01/21/18 1310 - - - 79 - 97 % 01/21/18 1250 - - - 79 - 97 % 01/21/18 1230 - - - 79 - 95 % 01/21/18 1210 - - - 79 - 98 % 01/21/18 1150 - - - 79 - 99 % 01/21/18 1130 - - - 79 - 98 % 01/21/18 1119 - - - 80 16 97 % 01/21/18 1110 - - - 80 - 96 % 01/21/18 1050 - - - 80 - 97 % 01/21/18 1030 - - - 80 - 97 % 01/21/18 1010 - - - 80 - 96 % 01/21/18 0950 - - - 80 - 96 % 01/21/18 0930 - - - 80 - 97 % 01/21/18 0910 - - - 80 - 98 % 01/21/18 0850 - - - 80 - 98 % 01/21/18 0830 - - - 80 - 98 % 01/21/18 0810 - - - 80 - 96 % 01/21/18 0750 - - - 80 - 93 % 01/21/18 0730 - - - 80 - 94 % 01/21/18 0710 - - - 80 - 97 % 01/21/18 0650 - - - 80 - 97 % 01/21/18 0644 - - - 80 17 98 % 01/21/18 0630 - - - 80 - 98 % 01/21/18 0610 - - - 80 - 98 % 01/21/18 0550 - - - 80 - 98 % 01/21/18 0530 - - - 80 - 99 % 01/21/18 0510 - - - 80 - 99 % 01/21/18 0450 - - - 80 - 98 % 01/21/18 0430 - - - 79 - 99 % 01/21/18 0410 - - - 79 - 96 % 01/21/18 0350 - - - 79 - 97 % 01/21/18 0330 - - - 79 - 96 % 01/21/18 0324 - - - 79 20 96 % 01/21/18 0310 - - - 79 - 96 % 01/21/18 0250 - - - 79 - 95 % 01/21/18 0230 - - - 79 - 98 % 01/21/18 0210 - - - 79 - 95 % 01/21/18 0150 - - - 79 - 93 % 01/21/18 0130 - - - 79 - 95 % 01/21/18 0110 - - - 79 - 97 % 01/21/18 0050 - - - 79 - 95 % 01/21/18 0030 - - - 79 - 98 % 01/21/18 0010 - - - 79 - 97 % 01/20/18 2350 - - - 79 - 93 % 01/20/18 2345 - - - 79 22 94 % 01/20/18 2330 - 36.8 ?C (98.2 ?F) Oral 79 - 94 % 01/20/182309 - - - 79 - 96 % 01/20/182249 - - - 79 - 98 % 01/20/182229 - - - 79 - 97 % 01/20/182209 - - - 79 - 98 % 01/20/182149 - - - 79 - 96 % 01/20/182129 - - - 79 - 96 % 01/20/182113 - - - 79 22 90 % 01/20/182109 - - - 79 - 92 % 01/20/182102 - - - 79 18 97 % 01/20/182049 - - - 79 - 97 % 01/20/182029 - - - 79 - 97 % 01/20/182009 - - - 79 - 97 % 01/20/181949 - - - 80 - 96 % 01/20/181929 - - - 80 - 95 % 01/20/181909 - - - 80 - 95 % 01/20/181899 - 36.8 ?C (98.2 ?F) Oral - - - 01/20/18 183 - - - 80 - 97 % 01/20/18 181 - - - 80 - 97 % 01/20/181749 - - - 80 - 95 % VS: Patient Vitals for the past 4 hrs: Arterial BP 1 BP Pulse Temp Resp SpO2 01/21/18 1650 134/77 - 80 - - 98 % 01/21/18 1630 122/68 - 80 - - 98 % 01/21/18 1610 131/78 119/73 80 - - 98 % 01/21/18 1550 130/76 114/74 80 - - 99 % 01/21/18 1530 120/69 110/72 80 - 16 99 % 01/21/18 1510 111/63 - 79 - - 98 % 01/21/18 1500 - - - 36.5 ?C (97.7 ?F) - - 01/21/18 1450 120/69 - 79 - - 99 % 01/21/18 1430 114/68 - 79 - - 97 % 01/21/18 1410 116/67 - 79 - - 98 % 01/21/18 1350 119/69 - 79 - - 98 % I/O: Intake/Output Summary (Last 24 hours) at 01/21/18 1731 Last data filed at 01/21/18 1330 Gross per 24 hour Intake 0 ml Output 2545 ml Net -2545 ml Intake/Output Summary (Last 24 hours) at 01/21/18 0659 Last data filed at 01/21/18 0630 Gross per 24 hour Intake 1240.7 ml Output 2540 ml Net -1299.3 ml General: NAD Neck: Trachea midline. No mass palpable Lungs: Clear to auscultation, no crackles or wheezing. CV: normal, Regular rate and rhythm, no rubs. ACCESS: RIJ tunneled. No secretions or erythema. Abd: + bowel sounds, no distension. Neuro: no asterixis, no focal deficits. Ext: + edema LABS: Recent Labs 01/21/18 1025 01/21/18 0410 01/20/18 1802 01/20/18 0834 01/20/18 0410 01/20/18 0350 01/19/18 2034 01/19/18 0524 CREAT -- 3.31* -- -- -- 4.23* -- 3.79* -- 3.84* BUN -- 15 -- -- -- 21 -- 20 -- 17 NA -- 133* -- -- -- 136 -- 137 -- 135* K -- 4.5 -- -- -- 5.0 -- 4.7 -- 4.5 CHLOR -- 96* -- -- -- 99 -- 98 -- 97 CO2 -- 25 30* -- 28 25 < > 27 < > 28 GLUC -- 94 -- -- -- 126* -- 123* -- 82 CA -- 7.9* -- -- -- 8.0* -- 7.9* -- 8.2* MG -- -- -- -- -- -- -- -- -- 1.9 P -- -- -- -- -- -- -- -- -- 2.6* ALB -- 2.1* -- -- -- 2.1* -- -- -- -- WBC 4.03 3.29* -- 4.01 -- 4.31 -- 5.01 -- 3.48* HB 8.1* 8.1* -- 8.7* -- 8.4* -- 8.9* -- 7.6* MCV 92.5 92.9 -- 92.3 -- 92.1 -- 91.2 -- 96.6 PLT 92* 86* -- 81* -- 94* -- 101* < > 86* < > = values in this interval not displayed. IMPRESSION: 62 year old male with PMH including A-fibb, s/p AVR, history of CVA, Fe deficiency anemia and hemolytic anemia presented to [facility] as a transfer from OSH on 12/24. ?Initial presentation to OSH was due to suspected GI bleed. Patient was transferred to [facility] upon worsening of renal function. S/p MVR 01/19/18 ? 1. 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 2. Electrolytes ?-Hyponatremia (corrected) ? 3. Normocytic Anemia ?-Likely multifactorial cause including blood loss, hemolysis as well as acute renal failure ?-No concerning finding on BM bx. Below target. ?To start ?Aranesp 60 mcg/week on Thursday. ? 5. Volume Overload. Edema likely also exacerbated by hypoalbuminemia. More euvolemic today. Continue same today. No need for HOSPICE ART THERAPIST. Plan for IHD. Thank You for allowing us to participate in his care. Binu Christian MD. [facility] [phone] Staff. Nephrology and Hypertension. January 21, 2018 5:31 PM CONSULT PROG Observed: 01/21/2018 Status: COMPLETED Source: [place] 4:14 PM [facility] REPOSITORY HNO ID: [id number] Author: Rohit Olivas Service: Infectious Disease Author Type: Physician Type: Consult Progress Note Filed: 01/21/2018 4:17 PM Note Text: INFECTIOUS DISEASE CONSULT SERVICE PROGRESS NOTE Patient Name: Frank Rivera POD # 2 SURGERY/PROCEDURE: Reoperation second open-heart surgery. Aortic valve with root debridement and replacement with 26-mm aortic homograft. Tricuspid valve repair according to Gretta. Removal of pacemaker and permanent leads and placement of new epicardial leads on RV, LV, and right atrium and implantation of a new pacemaker. Interval Events: Course reviewed Up in [facility] drip for hypertension Chest pain controlled In addition to those reviewed and documented in the HPI all other systems reviewed and were negative. MEDICATIONS Medications reviewed. Current hospital medications: carvedilol 6.25 mg tab(s) (COREG) 6.25 mg ORAL BID w MEALS [START ON 01/25/2018] Darbepoetin Tereza In Polysorbat 60 mcg injection (ARANESP) 60 mcg SUBCUTANEOUS q MON hydrALAZINE 20 mg tab(s) (APRESOLINE) 20 mg ORAL q 6 H ciprofloxacin 400 mg in D5W 200 mL (CIPRO) 400 mg INTRAVENOUS q 24 HR Chlorhexidine Gluconate 0.12 % 15 mL (PERIDEX) 15 mL ORAL q [address] 20 mg tab(s) (PROTONIX) 20 mg ORAL DAILY (6 AM) pantoprazole 20 mg CUP (PROTONIX) 20 mg ORAL/FEEDING TUBE DAILY (6 AM) senna-docusate 8.6-50 mg 1 tablet (SENNA-S) 1 tablet ORAL BID bisacodyl 10 mg suppository (DULCOLAX) 10 mg RECTAL DAILY PRN ondansetron (PF) 4 mg injection (ZOFRAN) 4 mg INTRAVENOUS q 6 H PRN potassium chloride iv piggyback 10 mEq/100mL 10 mEq INTRAVENOUS PRN potassium chloride iv piggyback 20 mEq/50 mL 20 mEq INTRAVENOUS PRN potassium chloride 40-120 mEq oral powder (KLOR-CON) 40-120 mEq ORAL/FEEDING TUBE PRN 0.9% NaCl 3-5 mL 3-5 mL INTRAVENOUS q 12 H 0.9% NaCl 10 mL 10 mL INTRAVENOUS q 12 H dextrose 50 % 12.5 g injection 12.5 g INTRAVENOUS PRN dextrose 5% in NaCl 0.2% iv infusion 5 mL/hr INTRAVENOUS CONTINUOUS insulin glargine 0-40 Units pen (long acting) (LANTUS SOLOSTAR, BASAGLAR KWIKPEN) 0-40 Units SUBCUTANEOUS As Directed nitroglycerin 50 mg in D5W 250 mL 5-200 mcg/min INTRAVENOUS CONTINUOUS nitroglycerin injection 100 mcg injection syringe 100 mcg INTRAVENOUS PRN PHENYLephrine 0.1 mg injection 100 mcg INTRAVENOUS PRN fentaNYL PIPELINE CONSTRUCTION INSPECTOR 20 mcg/mL in NaCl 0.9% 100 mL INTRAVENOUS CONTINUOUS naloxone 0.04 mg injection (NARCAN) 0.04 mg INTRAVENOUS PRN lidocaine 5 % 1 Patch (LIDODERM) 1 Patch TRANSDERMAL DAILY lidocaine patch - REMOVE OTHER AT BEDTIME lidocaine - VERIFY PATCH OTHER q 8 H fentaNYL 50 mcg/mL 25-75 mcg injection (SUBLIMAZE) 25-75 mcg INTRAVENOUS q 1 H PRN acetaminophen 1,000 mg tab(s) (TYLENOL) 1,000 mg ORAL q 6 H acetaminophen 1,000 mg CUP (TYLENOL) 1,000 mg NASOGASTRIC q 6 H [START ON 01/23/2018] acetaminophen 650 mg tab(s) (TYLENOL) 650 mg ORAL/FEEDING TUBE q 4 H PRN oxyCODONE IR 5-10 mg tab(s) (ROXICODONE) 5-10 mg ORAL/FEEDING TUBE q 6 H PRN aspirin 162 mg chewable tab(s) 162 mg ORAL/FEEDING TUBE DAILY propofol infusion (DIPRIVAN) 5-60 mcg/kg/min INTRAVENOUS CONTINUOUS propofol iv bolus 10-50 mg (DIPRIVAN) 10-50 mg INTRAVENOUS q 1 H PRN heparin 5,000 Units injection 5,000 Units SUBCUTANEOUS q 12 H labetalol 10 mg injection syringe (NORMODYNE) 10 mg INTRAVENOUS q 2 H PRN doxycycline 100 mg in D5W 250 mL Vial-Mate (VIBRAMYCIN) 100 mg INTRAVENOUS q 12 H cefTRIAXone 2 g in D5W 100 mL MB+ (ROCEPHIN) 2 g INTRAVENOUS q 24 H docusate sodium 100 mg cap(s) (COLACE) 100 mg ORAL BID PRN polyethylene glycol 3350 17 g packet (MIRALAX, GLYCOLAX) 17 g ORAL DAILY PRN senna-docusate 8.6-50 mg 1 tablet (SENNA-S) 1 tablet ORAL/FEEDING TUBE BID PRN calcium carbonate 1,000 mg chewable tab(s) (TUMS) 1,000 mg ORAL/FEEDING TUBE BID PRN sodium chloride 0.65 % 2 [place] (AYR, OCEAN) 2 [place] EACH NOSTRIL TID PRN ovfitiwr-uskx-hhlxf acid chewable tablet (CENTRUM) 1 tablet ORAL DAILY cholecalciferol 3,000 Units tab(s) (VITAMIN D3) 3,000 Units ORAL DAILY cyanocobalamin 500 mcg tab(s) (VITAMIN B-12) 500 mcg ORAL DAILY thiamine 100 mg tab(s) (VITAMIN B1) 100 mg ORAL DAILY diphenhydrAMINE 25 mg (BENADRYL) 25 mg ORAL q 6 H PRN tamsulosin ER 0.4 mg cap(s) (FLOMAX) 0.4 mg ORAL DAILY levothyroxine 200 mcg tab(s) (SYNTHROID) 200 mcg ORAL BEFORE BREAKFAST DAILY atorvastatin 80 mg tab(s) (LIPITOR) 80 mg ORAL AT BEDTIME Examination: BP 136/76 Pulse 80 Temp 36.5 ?C (97.7 ?F) (Oral) Resp 16 Ht 193 cm (6' 4) Wt 113.2 kg (249 lb 9 oz) SpO2 99% BMI 30.38 kg/m? Temp (24hrs), Av.7 ?C (98 ?F), Min:36.5 ?C (97.7 ?F), Max:36.8 ?C (98.2 ?F) General appearance: Resting in chair at side of the bed Skin: no rash Head: neg Eyes: anicteric Oropharynx: neg Neck: Negative, right IJ Back: not examined Lungs: CTA Heart: rrnl, S1 and S2 Abdomen: soft Extremities: Bilateral lower extremity edema Musculoskeletal: Negative Peripheral pulses: radial pulses palpable Tunneled dialysis catheter and Sylvia catheter in the right chest Sternotomy dressed Exam unchanged as compared with 01/20 other than as edited above. Lab, Microbiology and Imaging Data: Personally reviewed imaging studies, laboratory results, and microbiology results. ASSESSMENT: 62-year-old with multiple medical problems including but not limited to atrial fibrillation, hypertension, and aortic stenosis status post aortic valve replacement in April 2017 with a permanent pacemaker placed shortly thereafter was transferred to our hospital on 12/24 for further evaluation of an acute kidney injury. He initially presented to an outside hospital on 12/19 for further evaluation of a new anemia and renal failure after presenting to his primary care physician with fatigue and shortness of breath. He was treated empirically with prednisone for a glomerular nephritis and transferred. 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 Positive serologies for antineutrophil cytoplasmic antibodies and myeloperoxidase. He is requiring renal replacement therapy. Notable aspects of his workup thus far from infectious disease perspective has included: 2 blood cultures 12/25-no growth to date Bartonella serologies-IgG for Bartonella henselae greater than 1:1024, IgG for Bartonella amato 1:1024 Transesophageal echocardiogram 01/01-2-3+ TR, 3+ AI, thickening of the aorto-mitral curtain and posterior LA wall suggestive of either hematoma or active infection, small mobile echodensity within the RA-vegetation versus thrombus CT chest cardiac 01/07-moderate diffuse leaflet calcification CT brain 01/07-no acute findings CT abdomen and pelvis 01/06-evolving large rectus sheath hematoma CT abdomen pelvis 01/17-rectus hematoma was stable craniocaudad dimensions but slight difference in axial configuration 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 Interestingly, despite his titers he has no obvious epidemiological link to this genus. In speaking with him and in reviewing his records there was no suspicion for endocarditis of the time of his operation in April. He continues to require renal replacement therapy. The patient was taken to the operating room on 01/19 and underwent SURGERY/PROCEDURE: Reoperation second open-heart surgery. Aortic valve with root debridement and replacement with 26-mm aortic homograft. Tricuspid valve repair according to Gretta. Removal of pacemaker and permanent leads and placement of new epicardial leads on RV, LV, and right atrium and implantation of a new pacemaker. . Operative findings: Vegetations on all 3 leaflets, partially dehisced valve, several penetrations into the annulus posteriorly under the left non-commissure and under the right non-commissure Operative cultures: No growth to date Histopathology: Pending PCR: Pending He is being supported in the ICU. He is critically ill after a complex open heart surgery. Gradual progress thus far. RECOMMENDATIONS: Stop ciprofloxacin Continue doxycycline 100 mg IV every 12 hours Continue ceftriaxone 2 g IV every 24 hours Await cultures, histopathology, and PCR from the operating room specimens Consolidate central access as much as possible. Assessment and plan unchanged as compared with 01/20 except as edited above. Monitoring for ongoing therapeutic and potential untoward effect of antibiotic therapy. Following Signature: Rohit Olivas MD Pager: [phone] PROGRESS Observed: 01/21/2018 Status: COMPLETED Source: [place] 11:00 AM [facility] REPOSITORY HNO ID: [id number] Author: Junie Darling Service: Critical Care Author Type: Nurse Practitioner Type: Progress Notes Filed: 01/21/2018 11:04 AM Note Text: [facility] Note Name: Frank Rivera Coordination of Care Note: Indication for Surgery: Infective endocarditis of aortic valve Preop LVEF: Normal RVF: mild Postop LVEF: Normal RVF: mild Important/Relevant PMH/PSH: Atrial fibrillation /p PPM and DCCV in 04/2017 on apixaban 5mg BID on metoprolol 12.5mg BID, HTN ,Hypothyroidism Aortic Stenosis s/p bioprosthetic AVR (27mm [facility]. Richi Trifecta pericardial valve) and RUDY ligation 05/07/17 Hx of CVA with residual dysphagia Hx of Min-En-Y bypass in 1995 Hx of Upper GI bleeds (1997, 2014, 2015) Preoperative Hospital Course: 62y/o gentleman with atrial fibrillation and SSS s/p PPM, HTN, hypothyroidism, aortic stenosis s/p AVR and RUDY, history of Min-en-Y bypass c/b recurrent GIB, ADRIANNE, B12 deficiency, who presents to [facility] on 12/24/17 with fatigue and shortness of breath who was transferred from OSH with IRINA and renal biopsy concerning for C3 nephropathy. MICU transfer to initiate dialysis secondary to volume overload. CHANDRAKANT 01/01 showed AV vegitation. Airway Difficulty: Grade II - No special instrumentation Pacing Wires: No Chronological List of Surgeries and Major Events (Diagnosis): (Surgeries in bold characters) 01/19/2018: Prosthetic aortic valve explant, Homograft implant as valve/root/ascending aorta and reimplantation of coronary buttons Explant of right atrial and right ventricular endocardial leads and explant of generator left upper pectoral area Implant of epicardial leads on right atrium, right ventricule and left ventricle Pacemaker generator insertion left pre-rectus sheath A/P of Major Active Problems (excluding routine care and common problems): Neuro: awake and follow commands Resp Currently on 8L HF NC, wean as tolerated CV HTN: On nitroglycerin gtt for goal MAP 65-75, increased BB, added oral hydralazine Afib - currently paced, Home med Apixaban - discuss with CTS regarding AC 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 on 12/27/2017, last session on 01/20 ID: Bartonella positive, on IV doxycycline and ceftriaxone per ID To Do or to Watch: - Bartonella positive, on IV doxycycline and ceftriaxone Discharge Planning: Anticipated Discharge Date: TBD Barriers to Discharge: Unknown Care Management Discharge Needs: Needs Prior to Discharge: To Be Determined;Facility or Agency Choices;Procedure;Other: See Comment Other Problems I Reviewed and/or Managed During This Encounter: Problem Subacute Bacterial Endocarditis History: Bartonella henselae SP AVR 01/19 A/P: Continue ABx per ID Anemia History: Hx FE, B12 deficiencies, UGI bleeds, Heyde's syndrome Assessment: BMBx - Normocytic anemia with anisocytosis and no increased schistocytes or spherocytes. Thrombocytopenia. Iron studies suggest anmeia of chronic disease Plan: Started Aranesp 60 mcg/week Pancytopenia (Hcc) History: Hx anemia, FE, B12 Assessment: BMBX Normocytic anemia with anisocytosis Plan: Hematology signed off. Atrial Fibrillation (Hcc) History: Hx post op AF, S/P DCC 06/07. A/P: Currently paced@80. Last pacer check underlying rhythm SB. Increased BB for rhythm and bp control. Home med Apixaban - discuss with CTS regarding AC Irina (Acute Kidney Injury) (Hcc) Plan for next session on Thursday. Htn (Hypertension) History: on hydralazine, lopressor at home A/P: Currently on Nitroglycerin gtt, titrate to maintain MAP 65-75. Increased BB and added po hydralazine to promote weaning Malnutrition of Moderate Degree (Hcc) History: Per nutrition Assessment: In the context of Acute Illness or Injury based on: Insufficient Energy Intake: <75% for >7 days Subcutaneous Fat Loss: Mild Loss Muscle Loss Mild Loss A/P: Heart healthy diet started PHYSICAL EXAM: Neuro: Awake, Follows commands, Alert and oriented x [address] Cardiovascular: Rhythm: Paced@80 Pulmonary: Clear to auscultation, Breath sounds equal and Diminished breath sounds, Ventilator: N/A, patient is extubated CXR Findings: Atelectasis Bilateral, Increased Vascular Markings Bilateral, Pleural effusion Bilateral and CXR personally viewed and interpreted by ICU staff Nurse Practitioner Gastrointestinal: Abdominal: Soft, Non-tender and Bowel sounds yes DAILY CVICU CHECKLIST VTE Prophylaxis: Pharmacologic Yes VTE Prophylaxis: Mechanical: Yes Line infection prevention: Can CVC, PAC or arterial line be removed: No Continued need for urinary catheter: Yes - clinical indication: Patient post major surgery requiring fluid balance and input and output measurement. Restraints needed: No SIGNATURE: Junie Darling APRN.CNP DATE of SERVICE: 01/21/2018 TIME of SERVICE: 11:00 AM CBC Collected: 01/21/2018 Status: F Source: [place] 10:25 AM [facility] REPOSITORY TYPE CODE TESTS RESULT OUT OF REFERENCE UNITS RANGE LAB WBC 3.70-11.00 k/uL WBC 4.03 LAB RBC 4.20-6.00 m/uL Low RBC 2.66 LAB HGB 13.0-17.0 g/dL Low Hemoglobin 8.1 LAB HCT 39.0-51.0 % Low Hematocrit 24.6 LAB MCV 80.0-100.0 fL MCV 92.5 LAB MCH 26.0-34.0 pG MCH 30.5 LAB MCHC 30.5-36.0 g/dL MCHC 32.9 LAB RDWCV 11.5-15.0 % RDW-CV High 18.7 LAB PLTCT 150-400 k/uL Low Platelet Count 92 Result Comment: No clot detected. LAB MPV 9.0-12.7 fL MPV 10.3 LAB ABSNUC <0.01 k/uL Absolute nRBC <0.01 Performed By: #### CBC #### [facility] [address] [place], [place] [address] PLAN OF CARE Observed: 01/21/2018 Status: COMPLETED Source: [place] 10:22 AM [facility] REPOSITORY HNO ID: [id number] Author: Gee Joshi (Pharmacist) Service: Pharmacy Author Type: Pharmacist Type: Plan of Care Filed: 01/21/2018 10:24 AM Note Text: MEDICATION HISTORY AND MEDICATION RECONCILIATION Patient Name:Earl Rivera : 1955 Source of history:Patient: Reliability of source: Appears reliable, clearly identified: Medication name, Medication dose, Medication route, Medication frequency and Indications Medication Nonadherence Identified: No barriers noted The above information represents the best possible medication history: Yes Reconciliation completed? Yes All PRINCIPAL WEB DEVELOPER medications addressed by LIP Additional comments: Patient was told that he was no longer absorbing the ferrous sulfate and is unclear if he is to continue. Given history of anemia, I would recommend continuing with ascorbic acid (already taking). Allergies: ALLERGIES Allergen Reactions - Penicillin Hives Preferred Pharmacy: [facility]. Current PRINCIPAL WEB DEVELOPER Medications: Prior to Admission medications as of 12/28/17 0656 Medication Sig Last Dose Taking atorvastatin (LIPITOR) 80 mg tablet Take 80 mg by mouth once daily. Unknown at Unknown time Yes hydrALAZINE (APRESOLINE) 25 mg tablet Take 25 mg by mouth every 8 hours. Unknown at Unknown time Yes ascorbic acid-ascorbate sodium 500 mg chew Take 500 mg by mouth once daily. Unknown at Unknown time Yes levothyroxine (LEVOXYL) 200 mcg tablet Take 200 mcg by mouth daily before breakfast. Unknown at Unknown time Yes magnesium oxide 200 mg magnesium tab Take 2 tablets by mouth once daily. Unknown at Unknown time Yes metoprolol tartrate, short acting, (LOPRESSOR) 25 mg tablet Take 12.5 mg by mouth twice daily. Unknown at Unknown time Yes ferrous sulfate 325 mg (65 mg iron) tablet Take 325 mg by mouth daily with breakfast. Unknown at Unknown time Yes pantoprazole DR (PROTONIX) 20 mg tablet Take 40 mg by mouth twice daily. Unknown at Unknown time Yes cyanocobalamin (VITAMIN B-12) 100 mcg tab Take 500 mcg by mouth once daily. Unknown at Unknown time Yes apixaban (ELIQUIS) 5 mg tab(s) Take 5 mg by mouth twice daily. Unknown at Unknown time Yes predniSONE (DELTASONE) 20 mg tablet Take 60 mg by mouth once daily. GEE JOSHI, PHARMACIST January 21, 2018 10:23 AM CONSULT PROG Observed: 01/21/2018 Status: COMPLETED Source: [place] 10:11 AM [facility] REPOSITORY HNO ID: [id number] Author: Gee Joshi (Pharmacist) Service: Pharmacy Author Type: Pharmacist Type: Consult Progress Note Filed: 01/21/2018 10:13 AM Note Text: PHARMACY VANCOMYCIN DOSING NOTE Patient Name: Frank Rivera Admission Date: 12/24/2017 Date of Consult: 01/21/2018 Time of Consult: 10:11 AM Indication: Source Unknown; empiric Goal Range: 10-20 mcg/mL RECOMMENDATIONS/PLAN: Pharmacy consulted for vancomycin dosing for Frank Rivera, a 62 year old, male who is being treated with vancomycin for post-op prophylaxis after cardiothoracic surgery 1. The primary service has discontinued vancomycin therapy after completing 48 hours of therapy. Pharmacy vancomycin dosing service will sign off. Thank you for allowing us to participate in this patient's care. Please contact pharmacy with any questions. GEE JOSHI, PHARMACIST GASA + ALL Collected: 01/21/2018 Status: F Source: [place] FOR 8:54 AM [facility] RADIANCE USE ONLY REPOSITORY TYPE CODE TESTS RESULT OUT OF REFERENCE UNITS RANGE LAB PH 7.35-7.45 pH 7.41 LAB PCO2 34-46 mm Hg pCO2 41 LAB PO2 85-95 mm Hg pO2 High 156 LAB BE mmol/L Base Excess 2 LAB HCO3 22-26 mmol/L Bicarbonate 26 LAB CO2CT 22.0-28.0 mmol/L CO2 Content 27 LAB O2HB 95-98 % Oxyhemoglobin, Art. 98 LAB COHB 0-5.0 % Carboxyhemoglobin, 1.7 Art LAB MHGB 0.4-1.5 % Methemoglobin 0.5 LAB TEMP C Temperature, Body 37.0 LAB PHTC 7.35-7.45 pH, Temp Corrected 7.41 LAB PCO2T 34-46 mm Hg pCO2, Temp Correct 41 LAB PO2T mm Hg pO2, Temp Corrected 156 LAB NAB 135-146 mmol/L Sodium,Whole Low Bld 127 LAB KWB 3.5-5.0 mmol/L Potassium, Whole Bld 4.1 LAB HGBB 13.0-17.0 g/dL Low Hemoglobin,Total,A 6.5 CL LAB HCTB 39.0-51.0 % Hematocrit, Low ACL 20 LAB IC 1.08-1.30 mmol/L Calcium, Ion, WB 1.14 LAB GLB 60-105 mg/dL Glucose,Whole High Bld 108 LAB LACT 0.5-2.2 mmol/L Lactate 1.7 LAB ACBDTE Notify Date, Art [id number] LAB ACBTME Notify Time, Art Performed By: #### ALLBG #### [facility] [address] [place], [place] [address] GASA + ALL Collected: 01/21/2018 Status: F Source: [place] FOR 4:12 AM [facility] USE ONLY REPOSITORY TYPE CODE TESTS RESULT OUT OF REFERENCE UNITS RANGE LAB PH 7.35-7.45 pH 7.42 LAB PCO2 34-46 mm Hg pCO2 45 LAB PO2 85-95 mm Hg pO2 High 155 LAB BE mmol/L Base Excess 4 LAB HCO3 22-26 mmol/L Bicarbonate High 28 LAB CO2CT 22.0-28.0 mmol/L CO2 Content High 30 LAB O2HB 95-98 % Oxyhemoglobin, Art. 98 LAB COHB 0-5.0 % Carboxyhemoglobin,A 1.4 rt LAB MHGB 0.4-1.5 % Methemoglobin 0.5 LAB TEMP C Temperature, Body 37.0 LAB PHTC 7.35-7.45 pH, Temp Corrected 7.42 LAB PCO2T 34-46 mm Hg pCO2, Temp Correct 45 LAB PO2T mm Hg pO2, Temp Corrected 155 LAB NAB 135-146 mmol/L Sodium,Whole Bld Low 131 LAB KWB 3.5-5.0 mmol/L Potassium, Whole Bld 4.3 LAB HGBB 13.0-17.0 g/dL Low Hemoglobin,Total,AC 8.1 L LAB HCTB 39.0-51.0 % Hematocrit, ACL Low 25 LAB IC 1.08-1.30 mmol/L Calcium, Ion, WB 1.16 LAB GLB 60-105 mg/dL Glucose,Whole Bld 94 LAB LACT 0.5-2.2 mmol/L Lactate 0.9 Performed By: #### ALLBG #### [facility] [address] [place], [place] [id number] CBC Collected: 01/21/2018 Status: F Source: [place] 4:10 AM [facility] REPOSITORY TYPE CODE TESTS RESULT OUT OF REFERENCE UNITS RANGE LAB WBC 3.70-11.00 k/uL Low WBC 3.29 LAB RBC 4.20-6.00 m/uL Low RBC 2.68 LAB HGB 13.0-17.0 g/dL Low Hemoglobin 8.1 LAB HCT 39.0-51.0 % Low Hematocrit 24.9 LAB MCV 80.0-100.0 fL MCV 92.9 LAB MCH 26.0-34.0 pG MCH 30.2 LAB MCHC 30.5-36.0 g/dL MCHC 32.5 LAB RDWCV 11.5-15.0 % RDW-CV High 18.6 LAB PLTCT 150-400 k/uL Low Platelet Count 86 Result Comment: No clot detected. LAB MPV 9.0-12.7 fL MPV 10.7 LAB ABSNUC <0.01 k/uL Absolute nRBC <0.01 Performed By: #### CBC, CMP #### [facility] [address] [place], [place] [address] COMP METABOLIC PANEL Collected: 01/21/2018 Status: F Source: [place] 4:10 AM [facility] REPOSITORY TYPE CODE TESTS RESULT OUT OF REFERENCE UNITS RANGE LAB TP 6.3-8.0 g/dL Low Protein, Total 5.7 LAB ALB 3.9-4.9 g/dL Low Albumin 2.1 LAB CA 8.5-10.2 mg/dL Low Calcium, Total 7.9 LAB TBIL 0.2-1.3 mg/dL Bilirubin, Total 0.4 LAB ALKP 38-113 U/L Alkaline Phosphatase 101 LAB AST 14-40 U/L AST High 43 LAB GLU 74-99 mg/dL Glucose 94 Result Comment: The [place] [employer] (ADA) provides guidance for cutoff values for fasting glucose and random glucose. The ADA defines fasting as no caloric intake for at least 8 hours. Fas ting plasma glucose results between 100 to 125 mg/dL indicate increased risk for diabetes (prediabetes). Fasting plasma glucose results greater than or equal to 126 mg/dL meet the criteria for diagnosis of diabetes. In the absence of unequivocal hyperglycemia, results should be confirmed by repeat testing. In a patient with classic symptoms of hyperglycemia or hyperglycemic crisis, random plasma glucose results greater than or equal to 200 mg/dL meet the criteria for diagnosis of diabetes. Reference: Standards of Medical Care in Diabetes 2016, [place] [employer]. Diabetes Care. 2016.39(Suppl 1). LAB BUN 9-24 mg/dL BUN 15 LAB CRET 0.73-1.22 mg/dL Creatinine High 3.31 Result Comment: Result rechecked. LAB NA 136-144 mmol/L Sodium Low 133 LAB K 3.7-5.1 mmol/L Potassium 4.5 LAB CL 97-105 mmol/L Chloride Low 96 LAB CO2 22-30 mmol/L CO2 25 LAB AGAP 9-18 mmol/L Anion Gap 12 LAB ALT 10-54 U/L ALT 25 LAB GFRAA eGFR- Amer. 23 LAB GFRNAA . eGFR-All Other Races 19 Result Comment: eGFR (Estimated GFR) Units of measure: mL/min/1.73 meters squared eGFR is derived from the reexpressed MDRD Study equation using the following parameters: serum creatinine, age, gender and race. The creatinine assay has been calibrated to be traceable to IDMS. An eGFR <60 mL/min/1.73m2 for >3 months is consistent with chronic kidney disease. Refer to KDOQI guidelines for clinical interpretation. In patients with unstable renal function, e.g. those with acute kidney injury, the eGFR may not accurately reflect actual GFR. Performed By: #### CBC, CMP #### [facility] [employer] [address] [place], [place] [address] TYPE AND SCREEN Collected: 01/21/2018 Status: F Source: [place] 4:10 AM [facility] REPOSITORY TYPE CODE TESTS RESULT OUT OF REFERENCE UNITS RANGE LAB %ABR A ABO/RH(D) POSITIVE LAB % Antibody NEG Screen Performed By: #### TSCR #### [facility] [employer] [address] [place], [place] [address] XR CHEST 1V FRONTAL Observed: 01/21/2018 Status: F Source: [facility] 3:30 AM [facility] REPOSITORY * * *Final Report* * * DATE OF EXAM: Jan 21 2018 3:30AM JIX [id number] - XR CHEST 1V FRONTAL PORT / PROCEDURE REASON: Chest pain or SOB, pleurisy or effusion suspected * * * * Physician Interpretation * * * * EXAMINATION: CHEST RADIOGRAPH (PORTABLE SINGLE VIEW AP) Exam Date/Time: 01/21/2018 3:30 AM Clinical History: Chest pain or SOB, pleurisy or effusion suspected, MQ: [id number] Comparison: 1 day prior RESULT: See impression. IMPRESSION: Lines, tubes, and devices: The endotracheal tube has been removed. The nasogastric tube has been removed. 2 right internal jugular venous catheters are unchanged. The left thoracostomy tube is unchanged. The mediastinal drain is unchanged. Epicardial pacer wires are again seen. Lungs and pleura: Bilateral interstitial opacities represent pulmonary vascular congestion. Small bilateral pleural effusions with associated atelectasis is present. There is no pneumothorax. Cardiomediastinal silhouette: Stable cardiomediastinal silhouette. The heart is enlarged. Other: Remote right rib fractures are unchanged. Loss Prevention Operations Manager: IDA Transcribe Date/Time: Jan 21 2018 6:49A Dictated by : LEONOR PÉREZ MD This examination was interpreted and the report reviewed and electronically signed by: LEONOR PÉREZ MD on Jan 21 2018 6:53AM EST [id number] GASA + ALL Collected: 01/20/2018 Status: F Source: [place] FOR 8:15 PM [facility] USE ONLY REPOSITORY TYPE CODE TESTS RESULT OUT OF REFERENCE UNITS RANGE LAB PH 7.35-7.45 pH 7.43 LAB PCO2 34-46 mm Hg pCO2 43 LAB PO2 85-95 mm Hg pO2 High 118 LAB BE mmol/L Base Excess 4 LAB HCO3 22-26 mmol/L Bicarbonate High 28 LAB CO2CT 22.0-28.0 mmol/L CO2 Content High 29 LAB O2HB 95-98 % Oxyhemoglobin, Art. 96 LAB COHB 0-5.0 % Carboxyhemoglobin,A 1.2 rt LAB MHGB 0.4-1.5 % Methemoglobin 1.0 LAB TEMP C Temperature, Body 37.0 LAB PHTC 7.35-7.45 pH, Temp Corrected 7.43 LAB PCO2T 34-46 mm Hg pCO2, Temp Correct 43 LAB PO2T mm Hg pO2, Temp Corrected 118 LAB NAB 135-146 mmol/L Sodium,Whole Bld Low 132 LAB KWB 3.5-5.0 mmol/L Potassium, Whole Bld 4.0 LAB HGBB 13.0-17.0 g/dL Low Hemoglobin,Total,AC 8.9 L LAB HCTB 39.0-51.0 % Hematocrit, ACL Low 28 LAB IC 1.08-1.30 mmol/L Calcium, Ion, WB 1.15 LAB GLB 60-105 mg/dL Glucose,Whole Bld High 112 LAB LACT 0.5-2.2 mmol/L Lactate 1.7 Performed By: #### ALLBG #### [facility] [employer] [address] [place], [place] [address] BUN, POST DIALYSIS Collected: 01/20/2018 Status: F Source: [place] 7:10 PM [facility] REPOSITORY TYPE CODE TESTS RESULT OUT OF REFERENCE UNITS RANGE LAB BUNPO 9-24 mg/dL BUN, Post Dialysis 10 LAB BUNRAT % Urea Reduction Ratio 60 Performed By: #### BUNPO1 #### [facility] [address] [place], [place] [address] GASV + ALL Collected: 01/20/2018 Status: F Source: [place] 6:02 PM [facility] REPOSITORY TYPE CODE TESTS RESULT OUT OF REFERENCE UNITS RANGE LAB VPH 7.32-7.42 pH 7.39 LAB VPC2 42-55 mm Hg pCO2 49 LAB VPO2 35-45 mm Hg pO2 36 LAB VBE mmol/L Base Excess 4 LAB VHC3 24-28 mmol/L Bicarbonate 29 High LAB VC2C 25-29 mmol/L CO2 Content 30 High LAB O2HBCX 60-85 % 66 Oxyhemoglobin, Jogre Luis. LAB CO <2.0 % 1.7 Carboxyhemoglobin ,Jorge Luis LAB METHB 0.4-1.5 % 0.6 Methemoglobin LAB VTMP C 37.0 Temperature, Body LAB VPHTC 7.32-7.42 pH, Temp 7.39 Corrected LAB VPC2T mm Hg pCO2, Temp 49 Correct LAB VPO2T mm Hg pO2, Temp 36 Corrected LAB NAB 135-146 mmol/L 133 Low Sodium,Whole Bld LAB KWB 3.5-5.0 mmol/L Potassium, 3.8 Whole Bld LAB HGBB 13.0-17.0 g/dL 9.1 Low Hemoglobin,Total, ACL LAB HCTB 39.0-51.0 % Hematocrit, 28 Low ACL LAB IC 1.08-1.30 mmol/L Calcium, 1.17 Ion, WB LAB GLB 60-105 mg/dL 91 Glucose,Whole Bld LAB LACT 0.5-2.2 mmol/L Lactate 1.1 LAB VBGCOM Blood Gas O2 Comm, Jorge Luis Administration Result Comment: 6L Performed By: #### VALLBG #### [facility] [employer] [address] [place], [place] [address] GASA + ALL Collected: 01/20/2018 Status: F Source: [place] FOR 6:00 PM [facility] USE ONLY REPOSITORY TYPE CODE TESTS RESULT OUT OF REFERENCE UNITS RANGE LAB PH 7.35-7.45 pH 7.43 LAB PCO2 34-46 mm Hg pCO2 42 LAB PO2 85-95 mm Hg pO2 High 108 LAB BE mmol/L Base Excess 3 LAB HCO3 22-26 mmol/L Bicarbonate High 27 LAB CO2CT 22.0-28.0 mmol/L CO2 Content High 29 LAB O2HB 95-98 % Oxyhemoglobin, Art. 97 LAB COHB 0-5.0 % Carboxyhemoglobin,A 1.4 rt LAB MHGB 0.4-1.5 % Methemoglobin Low 0.0 LAB TEMP C Temperature, Body 37.0 LAB PHTC 7.35-7.45 pH, Temp Corrected 7.43 LAB PCO2T 34-46 mm Hg pCO2, Temp Correct 42 LAB PO2T mm Hg pO2, Temp Corrected 108 LAB NAB 135-146 mmol/L Sodium,Whole Bld Low 134 LAB KWB 3.5-5.0 mmol/L Potassium, Whole Bld 4.0 LAB HGBB 13.0-17.0 g/dL Low Hemoglobin,Total,AC 9.3 L LAB HCTB 39.0-51.0 % Hematocrit, ACL Low 29 LAB IC 1.08-1.30 mmol/L Calcium, Ion, WB 1.20 LAB GLB 60-105 mg/dL Glucose,Whole Bld 91 LAB LACT 0.5-2.2 mmol/L Lactate 1.2 Performed By: #### ALLBG #### [facility] [employer] [address] [place], [place] [address] BUN, PRE DIALYSIS Collected: 01/20/2018 Status: F Source: [place] 3:10 PM [facility] REPOSITORY TYPE CODE TESTS RESULT OUT OF REFERENCE UNITS RANGE LAB BUNPR 9-24 mg/dL High BUN, Pre 25 Dialysis Performed By: #### BUNPR #### [facility] [address] [place], [place] [address] CONSULT PROG Observed: 01/20/2018 Status: COMPLETED Source: [place] 2:23 PM [facility] REPOSITORY HNO ID: [id number] Author: [facility]: Nephrology Author Type: Physician Type: Consult Progress Note Filed: 01/20/2018 2:27 PM Note Text: Renal ICU Consults F/U January 20, 2018 S: No major events overnight. S/p MVR without major complications. Remains anuric. Extubated and off pressors. Current hospital medications: [START ON 01/21/2018] ciprofloxacin 400 mg in D5W 200 mL (CIPRO) 400 mg INTRAVENOUS q 24 HR vancomycin dosing and monitoring per pharmacy OTHER As Directed carvedilol 3.125 mg tab(s) (COREG) 3.125 mg ORAL BID w MEALS Chlorhexidine Gluconate 0.12 % 15 mL (PERIDEX) 15 mL ORAL q [address] 20 mg tab(s) (PROTONIX) 20 mg ORAL DAILY (6 AM) pantoprazole 20 mg CUP (PROTONIX) 20 mg ORAL/FEEDING TUBE DAILY (6 AM) senna-docusate 8.6-50 mg 1 tablet (SENNA-S) 1 tablet ORAL BID bisacodyl 10 mg suppository (DULCOLAX) 10 mg RECTAL DAILY PRN ondansetron (PF) 4 mg injection (ZOFRAN) 4 mg INTRAVENOUS q 6 H PRN potassium chloride iv piggyback 10 mEq/100mL 10 mEq INTRAVENOUS PRN potassium chloride iv piggyback 20 mEq/50 mL 20 mEq INTRAVENOUS PRN potassium chloride 40-120 mEq oral powder (KLOR-CON) 40-120 mEq ORAL/FEEDING TUBE PRN 0.9% NaCl 3-5 mL 3-5 mL INTRAVENOUS q 12 H 0.9% NaCl 10 mL 10 mL INTRAVENOUS q 12 H insulin regular human iv bolus 2-10 Units 2-10 Units INTRAVENOUS PRN insulin regular 250 units in NaCl 0.9% 250 mL iv infusion - HVI CVICU NOMOGRAM 0.5-40 Units/hr INTRAVENOUS CONTINUOUS dextrose 50 % 12.5 g injection 12.5 g INTRAVENOUS PRN dextrose 5% in NaCl 0.2% iv infusion 5 mL/hr INTRAVENOUS CONTINUOUS insulin glargine 0-40 Units pen (long acting) (LANTUS SOLOSTAR, BASAGLAR KWIKPEN) 0-40 Units SUBCUTANEOUS As Directed nitroglycerin 50 mg in D5W 250 mL 5-200 mcg/min INTRAVENOUS CONTINUOUS nitroglycerin injection 100 mcg injection syringe 100 mcg INTRAVENOUS PRN PHENYLephrine 0.1 mg injection 100 mcg INTRAVENOUS PRN fentaNYL PIPELINE CONSTRUCTION INSPECTOR 20 mcg/mL in NaCl 0.9% 100 mL INTRAVENOUS CONTINUOUS naloxone 0.04 mg injection (NARCAN) 0.04 mg INTRAVENOUS PRN lidocaine 5 % 1 Patch (LIDODERM) 1 Patch TRANSDERMAL DAILY lidocaine patch - REMOVE OTHER AT BEDTIME lidocaine - VERIFY PATCH OTHER q 8 H fentaNYL 50 mcg/mL 25-75 mcg injection (SUBLIMAZE) 25-75 mcg INTRAVENOUS q 1 H PRN acetaminophen 1,000 mg tab(s) (TYLENOL) 1,000 mg ORAL q 6 H acetaminophen 1,000 mg CUP (TYLENOL) 1,000 mg NASOGASTRIC q 6 H [START ON 01/23/2018] acetaminophen 650 mg tab(s) (TYLENOL) 650 mg ORAL/FEEDING TUBE q 4 H PRN oxyCODONE IR 5-10 mg tab(s) (ROXICODONE) 5-10 mg ORAL/FEEDING TUBE q 6 H PRN aspirin 162 mg chewable tab(s) 162 mg ORAL/FEEDING TUBE DAILY propofol infusion (DIPRIVAN) 5-60 mcg/kg/min INTRAVENOUS CONTINUOUS propofol iv bolus 10-50 mg (DIPRIVAN) 10-50 mg INTRAVENOUS q 1 H PRN heparin 5,000 Units injection 5,000 Units SUBCUTANEOUS q 12 H labetalol 10 mg injection syringe (NORMODYNE) 10 mg INTRAVENOUS q 2 H PRN doxycycline 100 mg in D5W 250 mL Vial-Mate (VIBRAMYCIN) 100 mg INTRAVENOUS q 12 H cefTRIAXone 2 g in D5W 100 mL MB+ (ROCEPHIN) 2 g INTRAVENOUS q 24 H docusate sodium 100 mg cap(s) (COLACE) 100 mg ORAL BID PRN polyethylene glycol 3350 17 g packet (MIRALAX, GLYCOLAX) 17 g ORAL DAILY PRN senna-docusate 8.6-50 mg 1 tablet (SENNA-S) 1 tablet ORAL/FEEDING TUBE BID PRN calcium carbonate 1,000 mg chewable tab(s) (TUMS) 1,000 mg ORAL/FEEDING TUBE BID PRN sodium chloride 0.65 % 2 [place] (AYR, OCEAN) 2 [place] EACH NOSTRIL TID PRN [id number]-leurk acid chewable tablet (CENTRUM) 1 tablet ORAL DAILY cholecalciferol 3,000 Units tab(s) (VITAMIN D3) 3,000 Units ORAL DAILY cyanocobalamin 500 mcg tab(s) (VITAMIN B-12) 500 mcg ORAL DAILY thiamine 100 mg tab(s) (VITAMIN B1) 100 mg ORAL DAILY diphenhydrAMINE 25 mg (BENADRYL) 25 mg ORAL q 6 H PRN tamsulosin ER 0.4 mg cap(s) (FLOMAX) 0.4 mg ORAL DAILY levothyroxine 200 mcg tab(s) (SYNTHROID) 200 mcg ORAL BEFORE BREAKFAST DAILY atorvastatin 80 mg tab(s) (LIPITOR) 80 mg ORAL AT BEDTIME PHYSICAL EXAM: Patient Vitals for the past 24 hrs: Pulse Resp SpO2 Weight 01/20/18 1330 80 - 95 % - 01/20/18 1300 80 - 96 % - 01/20/18 1230 80 - 96 % - 01/20/18 1200 80 - 97 % - 01/20/18 1132 80 20 98 % - 01/20/18 1130 80 - 97 % - 01/20/18 1110 80 - 99 % - 01/20/18 1050 80 - 100 % - 01/20/18 1030 79 - 99 % - 01/20/18 1010 79 - 99 % - 01/20/18 0950 79 - 98 % - 01/20/18 0930 79 - 100 % - 01/20/18 0910 79 - 88 % - 01/20/18 0850 79 - 94 % - 01/20/18 0830 79 - 97 % - 01/20/18 0811 - 19 95 % - 01/20/18 0810 79 - 94 % - 01/20/18 0750 80 22 98 % - 01/20/18 0730 80 - 98 % - 01/20/18 0710 80 - 98 % - 01/20/18 0650 80 - 98 % - 01/20/18 0630 80 - 98 % - 01/20/18 0610 80 - 98 % - 01/20/18 0550 80 - 98 % - 01/20/18 0530 80 - 98 % - 01/20/18 0510 80 - 97 % - 01/20/18 0450 80 - 98 % - 01/20/18 0430 80 - 98 % - 01/20/18 0410 80 - 96 % - 01/20/18 0350 80 - 97 % - 01/20/18 0336 80 16 97 % - 01/20/18 0330 80 - 99 % - 01/20/18 0310 80 - 99 % - 01/20/18 0300 - - - 113.2 kg (249 lb 9 oz) 01/20/18 0250 80 - 99 % - 01/20/18 0230 80 - 99 % - 01/20/18 0210 80 - 99 % - 01/20/18 0150 80 - 99 % - 01/20/18 0130 80 - 99 % - 01/20/18 0110 80 - 100 % - 01/20/18 0050 80 - 100 % - 01/20/18 0030 80 - 99 % - 01/20/18 0010 80 - 100 % - 01/19/18 2350 80 - 100 % - 01/19/18 2348 80 16 100 % - 01/19/18 2330 80 - 100 % - 01/19/18 2310 80 - 99 % - 01/19/18 2250 80 - 98 % - 01/19/18 2230 80 - 99 % - 01/19/18 2210 80 - 97 % - 01/19/18 2207 80 16 97 % - 01/19/18 2150 80 - 98 % - 01/19/18 2130 90 - 97 % - 01/19/18 2110 104 - 96 % - 01/19/18 2026 70 18 96 % - VS: Patient Vitals for the past 4 hrs: Arterial BP 1 Pulse Resp SpO2 01/20/18 1330 107/63 80 - 95 % 01/20/18 1300 113/66 80 - 96 % 01/20/18 1230 108/64 80 - 96 % 01/20/18 1200 105/62 80 - 97 % 01/20/18 1132 - 80 20 98 % 01/20/18 1130 114/68 80 - 97 % 01/20/18 1110 123/72 80 - 99 % 01/20/18 1050 141/79 80 - 100 % 01/20/18 1030 139/81 79 - 99 % I/O: Intake/Output Summary (Last 24 hours) at 01/20/18 1423 Last data filed at 01/20/18 1230 Gross per 24 hour Intake 3928 ml Output 1400 ml Net 2528 ml Intake/Output Summary (Last 24 hours) at 01/20/18 0659 Last data filed at 01/20/18 0630 Gross per 24 hour Intake 3928 ml Output 1280 ml Net 2648 ml General: NAD Neck: Trachea midline. No mass palpable Lungs: Clear to auscultation, no crackles or wheezing. CV: normal, Regular rate and rhythm, no rubs. ACCESS: RIJ tunneled. No secretions or erythema. Abd: + bowel sounds, no distension. Neuro: no asterixis, no focal deficits. Ext: + edema LABS: Recent Labs 01/20/18 0834 01/20/18 0410 01/20/18 0350 01/19/18 2203 01/19/18 2034 01/19/18 1932 01/19/18 0524 01/18/18 0429 CREAT -- -- 4.23* -- 3.79* -- -- 3.84* 4.93* BUN -- -- 21 -- 20 -- -- 17 28* NA -- -- 136 -- 137 -- -- 135* 133* K -- -- 5.0 -- 4.7 -- -- 4.5 4.9 CHLOR -- -- 99 -- 98 -- -- 97 96* CO2 -- 28 25 29 27 -- < > 28 26 GLUC -- -- 126* -- 123* -- -- 82 89 CA -- -- 8.0* -- 7.9* -- -- 8.2* 8.1* MG -- -- -- -- -- -- -- 1.9 1.9 P -- -- -- -- -- -- -- 2.6* 2.8 ALB -- -- 2.1* -- -- -- -- -- 2.2* WBC 4.01 -- 4.31 -- 5.01 -- -- 3.48* 3.44* HB 8.7* -- 8.4* -- 8.9* -- -- 7.6* 7.7* MCV 92.3 -- 92.1 -- 91.2 -- -- 96.6 95.9 PLT 81* -- 94* -- 101* 76* -- 86* 86* < > = values in this interval not displayed. IMPRESSION: 62 year old male with PMH including A-fibb, s/p AVR, history of CVA, Fe deficiency anemia and hemolytic anemia presented to [facility] as a transfer from OSH on 12/24. ?Initial presentation to OSH was due to suspected GI bleed. Patient was transferred to [facility] upon worsening of renal function. S/p MVR 01/19/18 ? 1. 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 2. Electrolytes ?-Hyponatremia (corrected) ? 3. Normocytic Anemia ?-Likely multifactorial cause including blood loss, hemolysis as well as acute renal failure ?-No concerning finding on BM bx. Below target. ?Had already suggested to start Aranesp 60 mcg/week. ? 5. Volume Overload. Edema likely also exacerbated by hypoalbuminemia. More euvolemic today. Likely third spacing after surgery. Will do IHD today with low UF. Plan for next session likely on Thursday. As above, would start him on ESAs for anemia. Thank You for allowing us to participate in his care. Binu Christian MD. [facility] [phone] Staff. Nephrology and Hypertension. January 20, 2018 2:23 PM CONSULT PROG Observed: 01/20/2018 Status: COMPLETED Source: [place] 1:30 PM [facility] REPOSITORY HNO ID: [id number] Author: Rohit Olivas Service: Infectious Disease Author Type: Physician Type: Consult Progress Note Filed: 01/20/2018 1:35 PM Note Text: INFECTIOUS DISEASE CONSULT SERVICE PROGRESS NOTE Patient Name: Frank Rivera POD # 1 SURGERY/PROCEDURE: Reoperation second open-heart surgery. Aortic valve with root debridement and replacement with 26-mm aortic homograft. Tricuspid valve repair according to Gretta. Removal of pacemaker and permanent leads and placement of new epicardial leads on RV, LV, and right atrium and implantation of a new pacemaker. Interval Events: Course reviewed Extubated, bit lethargic In addition to those reviewed and documented in the HPI all other systems reviewed and were negative. MEDICATIONS Medications reviewed. Current hospital medications: [START ON 01/21/2018] ciprofloxacin 400 mg in D5W 200 mL (CIPRO) 400 mg INTRAVENOUS q 24 HR vancomycin dosing and monitoring per pharmacy OTHER As Directed carvedilol 3.125 mg tab(s) (COREG) 3.125 mg ORAL BID w MEALS Chlorhexidine Gluconate 0.12 % 15 mL (PERIDEX) 15 mL ORAL q [address] 20 mg tab(s) (PROTONIX) 20 mg ORAL DAILY (6 AM) pantoprazole 20 mg CUP (PROTONIX) 20 mg ORAL/FEEDING TUBE DAILY (6 AM) senna-docusate 8.6-50 mg 1 tablet (SENNA-S) 1 tablet ORAL BID bisacodyl 10 mg suppository (DULCOLAX) 10 mg RECTAL DAILY PRN ondansetron (PF) 4 mg injection (ZOFRAN) 4 mg INTRAVENOUS q 6 H PRN potassium chloride iv piggyback 10 mEq/100mL 10 mEq INTRAVENOUS PRN potassium chloride iv piggyback 20 mEq/50 mL 20 mEq INTRAVENOUS PRN potassium chloride 40-120 mEq oral powder (KLOR-CON) 40-120 mEq ORAL/FEEDING TUBE PRN 0.9% NaCl 3-5 mL 3-5 mL INTRAVENOUS q 12 H 0.9% NaCl 10 mL 10 mL INTRAVENOUS q 12 H insulin regular human iv bolus 2-10 Units 2-10 Units INTRAVENOUS PRN insulin regular 250 units in NaCl 0.9% 250 mL iv infusion - HVI CVICU NOMOGRAM 0.5-40 Units/hr INTRAVENOUS CONTINUOUS dextrose 50 % 12.5 g injection 12.5 g INTRAVENOUS PRN dextrose 5% in NaCl 0.2% iv infusion 5 mL/hr INTRAVENOUS CONTINUOUS insulin glargine 0-40 Units pen (long acting) (LANTUS SOLOSTAR, BASAGLAR KWIKPEN) 0-40 Units SUBCUTANEOUS As Directed nitroglycerin 50 mg in D5W 250 mL 5-200 mcg/min INTRAVENOUS CONTINUOUS nitroglycerin injection 100 mcg injection syringe 100 mcg INTRAVENOUS PRN PHENYLephrine 0.1 mg injection 100 mcg INTRAVENOUS PRN fentaNYL PIPELINE CONSTRUCTION INSPECTOR 20 mcg/mL in NaCl 0.9% 100 mL INTRAVENOUS CONTINUOUS naloxone 0.04 mg injection (NARCAN) 0.04 mg INTRAVENOUS PRN lidocaine 5 % 1 Patch (LIDODERM) 1 Patch TRANSDERMAL DAILY lidocaine patch - REMOVE OTHER AT BEDTIME lidocaine - VERIFY PATCH OTHER q 8 H fentaNYL 50 mcg/mL 25-75 mcg injection (SUBLIMAZE) 25-75 mcg INTRAVENOUS q 1 H PRN acetaminophen 1,000 mg tab(s) (TYLENOL) 1,000 mg ORAL q 6 H acetaminophen 1,000 mg CUP (TYLENOL) 1,000 mg NASOGASTRIC q 6 H [START ON 01/23/2018] acetaminophen 650 mg tab(s) (TYLENOL) 650 mg ORAL/FEEDING TUBE q 4 H PRN oxyCODONE IR 5-10 mg tab(s) (ROXICODONE) 5-10 mg ORAL/FEEDING TUBE q 6 H PRN aspirin 162 mg chewable tab(s) 162 mg ORAL/FEEDING TUBE DAILY propofol infusion (DIPRIVAN) 5-60 mcg/kg/min INTRAVENOUS CONTINUOUS propofol iv bolus 10-50 mg (DIPRIVAN) 10-50 mg INTRAVENOUS q 1 H PRN heparin 5,000 Units injection 5,000 Units SUBCUTANEOUS q 12 H labetalol 10 mg injection syringe (NORMODYNE) 10 mg INTRAVENOUS q 2 H PRN doxycycline 100 mg in D5W 250 mL Vial-Mate (VIBRAMYCIN) 100 mg INTRAVENOUS q 12 H cefTRIAXone 2 g in D5W 100 mL MB+ (ROCEPHIN) 2 g INTRAVENOUS q 24 H docusate sodium 100 mg cap(s) (COLACE) 100 mg ORAL BID PRN polyethylene glycol 3350 17 g packet (MIRALAX, GLYCOLAX) 17 g ORAL DAILY PRN senna-docusate 8.6-50 mg 1 tablet (SENNA-S) 1 tablet ORAL/FEEDING TUBE BID PRN calcium carbonate 1,000 mg chewable tab(s) (TUMS) 1,000 mg ORAL/FEEDING TUBE BID PRN sodium chloride 0.65 % 2 [place] (AYR, OCEAN) 2 [place] EACH NOSTRIL TID PRN [id number] acid chewable tablet (CENTRUM) 1 tablet ORAL DAILY cholecalciferol 3,000 Units tab(s) (VITAMIN D3) 3,000 Units ORAL DAILY cyanocobalamin 500 mcg tab(s) (VITAMIN B-12) 500 mcg ORAL DAILY thiamine 100 mg tab(s) (VITAMIN B1) 100 mg ORAL DAILY diphenhydrAMINE 25 mg (BENADRYL) 25 mg ORAL q 6 H PRN tamsulosin ER 0.4 mg cap(s) (FLOMAX) 0.4 mg ORAL DAILY levothyroxine 200 mcg tab(s) (SYNTHROID) 200 mcg ORAL BEFORE BREAKFAST DAILY atorvastatin 80 mg tab(s) (LIPITOR) 80 mg ORAL AT BEDTIME Examination: BP 136/76 Pulse 80 Temp 37.1 ?C (98.7 ?F) (Oral) Resp 20 Ht 193 cm (6' 4) Wt 113.2 kg (249 lb 9 oz) SpO2 96% BMI 30.38 kg/m? No data recorded. General appearance: Resting in bed Skin: no rash Head: neg Eyes: anicteric Oropharynx: neg Neck: Negative, right IJ Back: not examined Lungs: CTA Heart: rrnl, S1 and S2 Abdomen: soft Extremities: Bilateral lower extremity edema Musculoskeletal: Negative Peripheral pulses: radial pulses palpable Tunneled dialysis catheter and Sylvia catheter in the right chest Sternotomy dressed Exam unchanged as compared with 01/19 other than as edited above. Lab, Microbiology and Imaging Data: Personally reviewed imaging studies, laboratory results, and microbiology results. ASSESSMENT: 62-year-old with multiple medical problems including but not limited to atrial fibrillation, hypertension, and aortic stenosis status post aortic valve replacement in April 2017 with a permanent pacemaker placed shortly thereafter was transferred to our hospital on 12/24 for further evaluation of an acute kidney injury. He initially presented to an outside hospital on 12/19 for further evaluation of a new anemia and renal failure after presenting to his primary care physician with fatigue and shortness of breath. He was treated empirically with prednisone for a glomerular nephritis and transferred. 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 Positive serologies for antineutrophil cytoplasmic antibodies and myeloperoxidase. He is requiring renal replacement therapy. Notable aspects of his workup thus far from infectious disease perspective has included: 2 blood cultures 12/25-no growth to date Bartonella serologies-IgG for Bartonella henselae greater than 1:1024, IgG for Bartonella amato 1:1024 Transesophageal echocardiogram 01/01-2-3+ TR, 3+ AI, thickening of the aorto-mitral curtain and posterior LA wall suggestive of either hematoma or active infection, small mobile echodensity within the RA-vegetation versus thrombus CT chest cardiac 01/07-moderate diffuse leaflet calcification CT brain 01/07-no acute findings CT abdomen and pelvis 01/06-evolving large rectus sheath hematoma CT abdomen pelvis 01/17-rectus hematoma was stable craniocaudad dimensions but slight difference in axial configuration 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 Interestingly, despite his titers he has no obvious epidemiological link to this genus. In speaking with him and in reviewing his records there was no suspicion for endocarditis of the time of his operation in April. He continues to require renal replacement therapy. The patient was taken to the operating room on 01/19 and underwent SURGERY/PROCEDURE: Reoperation second open-heart surgery. Aortic valve with root debridement and replacement with 26-mm aortic homograft. Tricuspid valve repair according to Gretta. Removal of pacemaker and permanent leads and placement of new epicardial leads on RV, LV, and right atrium and implantation of a new pacemaker. . Operative findings: Vegetations on all 3 leaflets, partially dehisced valve, several penetrations into the annulus posteriorly under the left non-commissure and under the right non-commissure Operative cultures: No growth to date Histopathology: Pending PCR: Pending He is being supported in the ICU. He is critically ill after a complex open heart surgery. RECOMMENDATIONS: Finished cardiac surgery prophylaxis as per protocol Continue doxycycline 100 mg IV every 12 hours Continue ceftriaxone 2 g IV every 24 hours Await cultures, histopathology, and PCR from the operating room specimens Assessment and plan unchanged as compared with 01/19 except as edited above. Monitoring for ongoing therapeutic and potential untoward effect of antibiotic therapy. Following Signature: Rohit Olivas MD Pager: [phone] CASE MANAGEM Observed: 01/20/2018 Status: COMPLETED Source: [place] 12:54 PM [facility] REPOSITORY HNO ID: [id number] Author: Briseida (Rn) Ralph Service: Care Management Author Type: Registered Nurse Type: Care Mgt Progress Note Filed: 01/20/2018 1:03 PM Note Text: CARE MANAGEMENT PROGRESS NOTE Change in condition SERVICE DATE: 01/20/2018 SERVICE TIME: 12:54PM LOS: 27 days Needs Prior to Discharge: To Be Determined Procedure Needed: CTS Per EMR; 01/19/2018: Prosthetic aortic valve explant, Homograft implant as valve/root/ascending aorta and reimplantation of coronary buttons Explant of right atrial and right ventricular endocardial leads and explant of generator left upper pectoral area Implant of epicardial leads on right atrium, right ventricule and left ventricle Pacemaker generator insertion left pre-rectus sheath Infective endocarditis of aortic valve. ID following - Continue doxycycline 100 mg IV every 12 hours Continue ceftriaxone 2 g IV every 24 hours IHD Patient received HHC list prior to surgery. PT recommend Home PT prior to surgery. Await re-evaluation. Case Management will continue to follow patient for discharge needs/planning. SIGNATURE: Briseida Rosas RN PATIENT NAME: Frank Rivera DATE: January 20, 2018 TIME: 12:54 PM PAGER/CONTACT #: [phone] GASA + ALL Collected: 01/20/2018 Status: F Source: [place] FOR 12:11 PM [facility] RADIANCE USE ONLY REPOSITORY TYPE CODE TESTS RESULT OUT OF REFERENCE UNITS RANGE LAB PH 7.35-7.45 pH 7.37 LAB PCO2 34-46 mm Hg pCO2 43 LAB PO2 85-95 mm Hg pO2 High 110 LAB BE mmol/L Base Excess NEG 1 LAB HCO3 22-26 mmol/L Bicarbonate 24 LAB CO2CT 22.0-28.0 mmol/L CO2 Content 25 LAB O2HB 95-98 % Oxyhemoglobin, Art. 96 LAB COHB 0-5.0 % Carboxyhemoglobin,A 2.2 rt LAB MHGB 0.4-1.5 % Methemoglobin 0.7 LAB TEMP C Temperature, Body 37.0 LAB PHTC 7.35-7.45 pH, Temp Corrected 7.37 LAB PCO2T 34-46 mm Hg pCO2, Temp Correct 43 LAB PO2T mm Hg pO2, Temp Corrected 110 LAB NAB 135-146 mmol/L Sodium,Whole Bld Low 133 LAB KWB 3.5-5.0 mmol/L Potassium, Whole Bld 4.8 LAB HGBB 13.0-17.0 g/dL Low Hemoglobin,Total,AC 9.1 L LAB HCTB 39.0-51.0 % Hematocrit, ACL Low 28 LAB IC 1.08-1.30 mmol/L Calcium, Ion, WB 1.20 LAB GLB 60-105 mg/dL Glucose,Whole Bld 98 LAB LACT 0.5-2.2 mmol/L Lactate 2.0 Performed By: #### ALLBG #### [facility] [address] [place] [address] [place], [place] [address] ALLIED HEALTH Observed: 01/20/2018 Status: COMPLETED Source: [place] 11:42 AM [facility] REPOSITORY HNO ID: [id number] Author: Deanne Romano (Mt-Bc) Service: Music Therapy Author Type: Music Therapist Type: Allied Health Filed: 01/20/2018 3:07 PM Note Text: MUSIC THERAPY NOTE SERVICE DATE: 01/20/2018 SERVICE TIME: 11:42 AM Therapist spoke with RN, who welcomed session, and pt opened his eyes to his name. Pt declined session today but agreed to follow up. Will follow up as able. SIGNATURE: SUNSHINE Mora PATIENT NAME: Frank Rivera DATE: January 20, 2018 TIME: 3:06 PM PAGER/CONTACT #: [phone] CONSULT PROG Observed: 01/20/2018 Status: COMPLETED Source: [place] 11:38 AM [facility] REPOSITORY HNO ID: [id number] Author: Narda Gong Service: Endocrinology Author Type: Physician Type: Consult Progress Note Filed: 01/20/2018 3:29 PM Note Text: ENDOCRINOLOGY CONSULT PROGRESS NOTE SERVICE DATE: 01/20/2018 SERVICE TIME: 11:38 AM Subjective INTERVAL HPI: - AV replacement yesterday, doing well Current hospital medications: [START ON 01/21/2018] ciprofloxacin 400 mg in D5W 200 mL (CIPRO) 400 mg INTRAVENOUS q 24 HR vancomycin dosing and monitoring per pharmacy OTHER As Directed carvedilol 3.125 mg tab(s) (COREG) 3.125 mg ORAL BID w MEALS Chlorhexidine Gluconate 0.12 % 15 mL (PERIDEX) 15 mL ORAL q [address] 20 mg tab(s) (PROTONIX) 20 mg ORAL DAILY (6 AM) pantoprazole 20 mg CUP (PROTONIX) 20 mg ORAL/FEEDING TUBE DAILY (6 AM) senna-docusate 8.6-50 mg 1 tablet (SENNA-S) 1 tablet ORAL BID bisacodyl 10 mg suppository (DULCOLAX) 10 mg RECTAL DAILY PRN ondansetron (PF) 4 mg injection (ZOFRAN) 4 mg INTRAVENOUS q 6 H PRN potassium chloride iv piggyback 10 mEq/100mL 10 mEq INTRAVENOUS PRN potassium chloride iv piggyback 20 mEq/50 mL 20 mEq INTRAVENOUS PRN potassium chloride 40-120 mEq oral powder (KLOR-CON) 40-120 mEq ORAL/FEEDING TUBE PRN 0.9% NaCl 3-5 mL 3-5 mL INTRAVENOUS q 12 H 0.9% NaCl 10 mL 10 mL INTRAVENOUS q 12 H insulin regular human iv bolus 2-10 Units 2-10 Units INTRAVENOUS PRN insulin regular 250 units in NaCl 0.9% 250 mL iv infusion - HVI CVICU NOMOGRAM 0.5-40 Units/hr INTRAVENOUS CONTINUOUS dextrose 50 % 12.5 g injection 12.5 g INTRAVENOUS PRN dextrose 5% in NaCl 0.2% iv infusion 5 mL/hr INTRAVENOUS CONTINUOUS insulin glargine 0-40 Units pen (long acting) (LANTUS SOLOSTAR, BASAGLAR KWIKPEN) 0-40 Units SUBCUTANEOUS As Directed nitroglycerin 50 mg in D5W 250 mL 5-200 mcg/min INTRAVENOUS CONTINUOUS nitroglycerin injection 100 mcg injection syringe 100 mcg INTRAVENOUS PRN PHENYLephrine 0.1 mg injection 100 mcg INTRAVENOUS PRN fentaNYL PIPELINE CONSTRUCTION INSPECTOR 20 mcg/mL in NaCl 0.9% 100 mL INTRAVENOUS CONTINUOUS naloxone 0.04 mg injection (NARCAN) 0.04 mg INTRAVENOUS PRN lidocaine 5 % 1 Patch (LIDODERM) 1 Patch TRANSDERMAL DAILY lidocaine patch - REMOVE OTHER AT BEDTIME lidocaine - VERIFY PATCH OTHER q 8 H fentaNYL 50 mcg/mL 25-75 mcg injection (SUBLIMAZE) 25-75 mcg INTRAVENOUS q 1 H PRN acetaminophen 1,000 mg tab(s) (TYLENOL) 1,000 mg ORAL q 6 H acetaminophen 1,000 mg CUP (TYLENOL) 1,000 mg NASOGASTRIC q 6 H [START ON 01/23/2018] acetaminophen 650 mg tab(s) (TYLENOL) 650 mg ORAL/FEEDING TUBE q 4 H PRN oxyCODONE IR 5-10 mg tab(s) (ROXICODONE) 5-10 mg ORAL/FEEDING TUBE q 6 H PRN aspirin 162 mg chewable tab(s) 162 mg ORAL/FEEDING TUBE DAILY propofol infusion (DIPRIVAN) 5-60 mcg/kg/min INTRAVENOUS CONTINUOUS propofol iv bolus 10-50 mg (DIPRIVAN) 10-50 mg INTRAVENOUS q 1 H PRN heparin 5,000 Units injection 5,000 Units SUBCUTANEOUS q 12 H labetalol 10 mg injection syringe (NORMODYNE) 10 mg INTRAVENOUS q 2 H PRN doxycycline 100 mg in D5W 250 mL Vial-Mate (VIBRAMYCIN) 100 mg INTRAVENOUS q 12 H cefTRIAXone 2 g in D5W 100 mL MB+ (ROCEPHIN) 2 g INTRAVENOUS q 24 H docusate sodium 100 mg cap(s) (COLACE) 100 mg ORAL BID PRN polyethylene glycol 3350 17 g packet (MIRALAX, GLYCOLAX) 17 g ORAL DAILY PRN senna-docusate 8.6-50 mg 1 tablet (SENNA-S) 1 tablet ORAL/FEEDING TUBE BID PRN calcium carbonate 1,000 mg chewable tab(s) (TUMS) 1,000 mg ORAL/FEEDING TUBE BID PRN sodium chloride 0.65 % 2 [place] (AYR, OCEAN) 2 [place] EACH NOSTRIL TID PRN jdqebhnm-wyqc-arjxj acid chewable tablet (CENTRUM) 1 tablet ORAL DAILY cholecalciferol 3,000 Units tab(s) (VITAMIN D3) 3,000 Units ORAL DAILY cyanocobalamin 500 mcg tab(s) (VITAMIN B-12) 500 mcg ORAL DAILY thiamine 100 mg tab(s) (VITAMIN B1) 100 mg ORAL DAILY diphenhydrAMINE 25 mg (BENADRYL) 25 mg ORAL q 6 H PRN tamsulosin ER 0.4 mg cap(s) (FLOMAX) 0.4 mg ORAL DAILY levothyroxine 200 mcg tab(s) (SYNTHROID) 200 mcg ORAL BEFORE BREAKFAST DAILY atorvastatin 80 mg tab(s) (LIPITOR) 80 mg ORAL AT BEDTIME Objective PHYSICAL EXAM: GENERAL: in no distress and oriented x 3 Heart RRR with normal S1 and S2, no murmurs, no gallops, no JVD appreciated Lungs clear to auscultation Abdomen bowel sounds normoactive, no bruits, soft, non-tender, non-distended, without organomegaly or palpable masses, no tenderness to palpation BP 136/76 Pulse 80 Temp (Src) 98.7 (Oral) Resp 20 Ht 6' 4 (1.93m) Wt 249 lb 9 oz (113.2kg) SpO2 98% BMI 30.39 kg/(m2). DATA: Diagnostic tests reviewed for today's visit: TSH Date Value Ref Range Status 01/12/2018 28.120 (H) 0.400 - 5.500 uU/mL Final ? 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 Endocrinology consulted for elevated TSH to 28.12. Pt w/ hypothyroidism on synthroid for 10-12 years. ?No recent changes to synthroid dose. On review of MAR, pt's PPI and iron-containing multivitamin were given at the same time as the levothyroxine. Recommended giving synthroid separately from multivitamin and PPI. Repeat TFTs on 01/19 showed reduction of TSH to 20.8 suggesting that synthroid is now being better absorbed. - please continue to give levothyroxine on empty stomach, 2 hrs before or after PPI and multivitamin - TSH improving however still high, recheck TFTs in one week to see if TSH continues to downtrend, if not please call us as pt may still need adjustment in synthroid dose. ? Case to be discussed with attending staff, addendum to follow. Please call [facility] (found on the [facility] schedule online) after 5 pm. ? Yanet Gudino MD, PGY-1 Pager: [phone] January 13, 2018 SIGNATURE: Yanet Gudino MD PATIENT NAME: Frank Rivera DATE: January 20, 2018 TIME: 11:38 AM PAGER: [phone] STAFF PHYSICIAN NOTE OF PERSONAL INVOLVEMENT IN CARE ?? I personally interviewed and examined the patient, I reviewed the progress note obtained and documented by the resident and I personally participated in the hernandez components. I have discussed the case and management of the patient's care. The following comments revise or confirm relevant hernandez components of their note. ?? IMPRESSION/PLAN:?This is a 62 year old male with extensive cardiac history currently undergoing evaluation?for open heart AV replacement procedure 04/24 Bartonella endocarditis Endocrinology has been consulted for management of hypothyroidism Currently on Synthroid 200 mcg daily TSH has decreased since Synthroid is being administered apart from other medication especially PPI. Given the improvement in TSH, my suggestion is to continue current synthroid dose Recheck TSH in 1 week ? ?? SIGNATURE:Narda Gong MD 01/20/18 PROGRESS Observed: 01/20/2018 Status: COMPLETED Source: [place] 9:35 AM [facility] REPOSITORY [facility] ID: [id number] Author: Felicia Montes Service: Critical Care Author Type: Physician Type: Progress Notes Filed: 01/20/2018 9:42 AM Note Text: [facility] Note Name: Frank Rivera Coordination of Care Note: Indication for Surgery: Infective endocarditis of aortic valve Preop LVEF: Normal RVF: mild Postop LVEF: Normal RVF: mild Important/Relevant PMH/PSH: Atrial fibrillation /p PPM and DCCV in 04/2017 on apixaban 5mg BID on metoprolol 12.5mg BID, HTN ,Hypothyroidism Aortic Stenosis s/p bioprosthetic AVR (27mm [facility]. Richi Trifecta pericardial valve) and RUYD ligation 05/07/17 Hx of CVA with residual dysphagia Hx of Min-En-Y bypass in 1995 Hx of Upper GI bleeds (1997, 2014, 2015) Preoperative Hospital Course: 62y/o gentleman with atrial fibrillation and SSS s/p PPM, HTN, hypothyroidism, aortic stenosis s/p AVR and RUDY, history of Min-en-Y bypass c/b recurrent GIB, ADRIANNE, B12 deficiency, who presents to [facility] on 12/24/17 with fatigue and shortness of breath who was transferred from OSH with IRINA and renal biopsy concerning for C3 nephropathy. MICU transfer to initiate dialysis secondary to volume overload. CHANDRAKANT 01/01 showed AV vegitation. Airway Difficulty: Grade II - No special instrumentation Pacing Wires: No Chronological List of Surgeries and Major Events (Diagnosis): (Surgeries in bold characters) 01/19/2018: Prosthetic aortic valve explant, Homograft implant as valve/root/ascending aorta and reimplantation of coronary buttons Explant of right atrial and right ventricular endocardial leads and explant of generator left upper pectoral area Implant of epicardial leads on right atrium, right ventricule and left ventricle Pacemaker generator insertion left pre-rectus sheath A/P of Major Active Problems (excluding routine care and common problems): Neuro: awake and follow commands Resp extubated this am and tolerated well CV HD stable off drips. 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 Monitor HANDH and chest tube output ID: Bartonella positive, on IV doxycycline and ceftriaxone per ID To Do or to Watch: - Extubated this am and tolerated well - Bartonella positive, on IV doxycycline and ceftriaxone -TDC in IR 01/18. Last dialysis 01/18 Discharge Planning: Anticipated Discharge Date: TBD Barriers to Discharge: Unknown Care Management Discharge Needs: Needs Prior to Discharge: To Be Determined;Facility or Agency Choices;Procedure;Other: See Comment Other Problems I Reviewed and/or Managed During This Encounter: Active Hospital Problems Diagnosis Date Noted - Intravenous catheter in place 12/24/2017 Overview Note: Added automatically from request for surgery [id number] - Subacute bacterial endocarditis 01/07/2018 Priority: A Overview Note: History: Bartonella henselae Assessment: On rocephin and doxy Plan: SP AVR 01/19 Continue ABx per ID,. - Anemia 12/26/2017 Priority: C Overview Note: History: Hx FE, B12 deficiencies, UGI bleeds, Heyde's syndrome Assessment: BMBx - Normocytic anemia with anisocytosis and no increased schistocytes or spherocytes. Thrombocytopenia. Iron studies suggest anmeia of chronic disease Plan: Monitor. Transfuse for Hgb <7, 01/17. No EGD/Colon - testing previously done. Repeat LDH 598 - Pancytopenia ([facility]) 12/26/2017 Priority: C Overview Note: History: Hx anemia, FE, B12 Assessment: BMBX Normocytic anemia with anisocytosis Plan: Hematology signed off. - Atrial fibrillation ([facility]) 12/26/2017 Priority: C Overview Note: History: Hx post op AF Assessment: S/P DCC 06/07. In SR Plan: Continue Beta Magdy. 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 No Hx CKD Assessment: C3 nephropathy Plan: - IHD per nephrology. TDC in IR 01/18. - HTN (hypertension) 12/26/2017 Priority: D Overview Note: History: on hydralazine, lopressor at home Assessment: Currently well controlled Plan: Continue lopressor. - Rectus sheath hematoma 12/26/2017 Priority: F Overview Note: History: Pt with hematoma found on CT. Had renal Bx at OSH? Assessment: Stable by repeat CT Plan: Monitor - CVA, old, dysphagia 12/26/2017 Priority: L Overview Note: History: Remote Assessment: Mild dysphagia Plan: Neuro cleared pt for OHS. - Malnutrition of moderate degree ([facility]) 12/25/2017 Priority: M Overview Note: History: Per nutrition Assessment: In the context of Acute Illness or Injury based on: Insufficient Energy Intake: <75% for >7 days Subcutaneous Fat Loss: Mild Loss Muscle Loss Mild Loss Plan: Intervention: Restart diet when extubated - Stress hyperglycemia 01/19/2018 Overview Note: insulin drip then SSI - Pain, postoperative, acute 01/19/2018 Overview Note: fentanyl PIPELINE CONSTRUCTION INSPECTOR , lido patch, oxy PRN - Acute blood loss anemia 01/19/2018 Overview Note: TRANSFUSE NEEDED - Lymphadenopathy 12/26/2017 - CAD (coronary artery disease) 12/26/2017 - Obesity, Class I, BMI 30-34.9 12/26/2017 PHYSICAL EXAM: Neuro: Awake and Follows commands Cardiovascular: Rhythm: regular rate and rhythm Pulmonary: Clear to auscultation and Breath sounds equal Ventilator: N/A, patient is extubated CXR Findings: RML/RLL infiltrate Gastrointestinal: Abdominal: Soft and Non-tender DAILY CVICU CHECKLIST VTE Prophylaxis: Pharmacologic Yes VTE Prophylaxis: Mechanical: Yes Line infection prevention: Can CVC, PAC or arterial line be removed: No Continued need for urinary catheter: Yes - clinical indication: Patient post major surgery requiring fluid balance and input and output measurement. Restraints needed: No This patient has a high probability of sudden, clinically significant deterioration, which requires the highest level of preparedness to intervene urgently. I participated in the decision making and personally managed or directed the management of the following life and organ supporting interventions that required my frequent assessment to treat or prevent imminent deterioration of: I personally spent 32 minutes of critical care time treating the patient. Time devoted to any procedures I billed separately is not included. SIGNATURE: Felicia Montes MD DATE of SERVICE: 01/20/2018 TIME of SERVICE: 9:35 AM CBC Collected: 01/20/2018 Status: F Source: [place] 8:34 AM [facility] REPOSITORY TYPE CODE TESTS RESULT OUT OF REFERENCE UNITS RANGE LAB WBC 3.70-11.00 k/uL WBC 4.01 LAB RBC 4.20-6.00 m/uL Low RBC 2.87 LAB HGB 13.0-17.0 g/dL Low Hemoglobin 8.7 LAB HCT 39.0-51.0 % Low Hematocrit 26.5 LAB MCV 80.0-100.0 fL MCV 92.3 LAB MCH 26.0-34.0 pG MCH 30.3 LAB MCHC 30.5-36.0 g/dL MCHC 32.8 LAB RDWCV 11.5-15.0 % RDW-CV High 18.9 LAB PLTCT 150-400 k/uL Low Platelet Count 81 Result Comment: No clot detected. LAB MPV 9.0-12.7 fL MPV 10.3 LAB ABSNUC <0.01 k/uL Absolute nRBC <0.01 Performed By: #### CBC #### [facility] [address] [place], [place] [address] GASA + ALL Collected: 01/20/2018 Status: F Source: [place] FOR 8:31 AM [facility] RADIANCE USE ONLY REPOSITORY TYPE CODE TESTS RESULT OUT OF REFERENCE UNITS RANGE LAB PH 7.35-7.45 pH 7.38 LAB PCO2 34-46 mm Hg pCO2 42 LAB PO2 85-95 mm Hg pO2 Low 83 LAB BE mmol/L Base Excess 0 LAB HCO3 22-26 mmol/L Bicarbonate 24 LAB CO2CT 22.0-28.0 mmol/L CO2 Content 26 LAB O2HB 95-98 % Oxyhemoglobin, Art. 95 LAB COHB 0-5.0 % Carboxyhemoglobin,A 2.3 rt LAB MHGB 0.4-1.5 % Methemoglobin 0.8 LAB TEMP C Temperature, Body 37.0 LAB PHTC 7.35-7.45 pH, Temp Corrected 7.38 LAB PCO2T 34-46 mm Hg pCO2, Temp Correct 42 LAB PO2T mm Hg pO2, Temp Corrected 83 LAB NAB 135-146 mmol/L Sodium,Whole Bld Low 132 LAB KWB 3.5-5.0 mmol/L Potassium, Whole Bld 4.8 LAB HGBB 13.0-17.0 g/dL Low Hemoglobin,Total,AC 9.4 L LAB HCTB 39.0-51.0 % Hematocrit, ACL Low 29 LAB IC 1.08-1.30 mmol/L Calcium, Ion, WB 1.18 LAB GLB 60-105 mg/dL Glucose,Whole Bld High 115 LAB LACT 0.5-2.2 mmol/L Lactate High 2.3 Performed By: #### ALLBG #### [facility] [address] [place] [address] [place], [place] [address] CONSULT PROG Observed: 01/20/2018 Status: COMPLETED Source: [place] 6:48 AM [facility] REPOSITORY HNO ID: [id number] Author: Tamika Portillo (Pharmacist) Service: Pharmacy Author Type: Pharmacist Type: Consult Progress Note Filed: 01/20/2018 6:58 AM Note Text: PHARMACY VANCOMYCIN DOSING NOTE Patient Name: Frank Rivera Admission Date: 12/24/2017 Date of Consult: 01/20/2018 Time of Consult: 6:48 AM Indication: Source Unknown; empiric Goal Range: 10-20 mcg/mL RECOMMENDATIONS/PLAN: Pharmacy consulted for Vancomycin dosing for Frank Rivera, a 62 year old, male who is being treated with Vancomycin for Source Unknown;empiric. 1. Patient is currently ordered Vancomycin 1 g IV q12h x 3 doses post op. Today is day 1 of therapy. 2. No Vancomycin level has been drawn for this dosing regimen. 3. Due to patient's renal status-serum creatinine and urine output-patient IRINA since admission requiring dialysis, will discontinue scheduled Vancomycin IV and administer Vancomycin 1.75 g IV one time dose. If patient is to continue Vancomycin IV beyond immediate post op period will follow Nephrology recommendations regarding dialysis or determine subsequent doses based on levels. 4. The next Vancomycin level will be ordered if needed per determination of continuation of therapy unless clinically indicated sooner. (Pharmacy will order) We will follow patient renal function, Vancomycin levels and doses with you during the course of therapy. Additional recommendations will appear in follow up notes. If you have any questions[place] [phone]. Age: [age] year old Allergies: ALLERGIES Allergen Reactions - Penicillin Hives Last 3 Encounter Wt Readings: Date: Wt: 12/24/2017 113.2 kg (249 lb 9 oz) Last 1 Encounter Ht Readings: Date: Ht: 12/24/2017 193 cm (6' 4) CrCl: ~15-20 mL/min No data recorded. - Current Temp: 37.1 ?C (98.7 ?F) Labs BUN (mg/dL) Date Value 01/20/2018 21 01/19/2018 20 01/19/2018 17 Creatinine (mg/dL) Date Value 01/20/2018 4.23 (H) 01/19/2018 3.79 (H) 01/19/2018 3.84 (H) WBC (k/uL) Date Value 01/20/2018 4.31 01/19/2018 5.01 01/19/2018 3.48 (L) Vancomycin Levels: No results found for: NEETU Thank you, Tamika Portillo, Pharmacist XR CHEST 1V FRONTAL Observed: 01/20/2018 Status: F Source: [facility] 5:22 AM [facility] REPOSITORY * * *Final Report* * * DATE OF EXAM: Jan 20 2018 5:22AM [id number] - XR CHEST 1V FRONTAL PORT / PROCEDURE REASON: Chest pain or SOB, pleurisy or effusion suspected * * * * Physician Interpretation * * * * EXAMINATION: CHEST RADIOGRAPH (PORTABLE SINGLE VIEW AP) Exam Date/Time: 01/20/2018 5:22 AM Clinical History: Chest pain or SOB, pleurisy or effusion suspected, MQ: XCPMC_5 Comparison: 1 day prior RESULT: See impression. IMPRESSION: Lines, tubes, and devices: The patient is status post median sternotomy. ET tube, NG/OG tube, right pulmonary arterial catheter, right IJ venous catheters, mediastinal drain, left chest tube and epicardial pacing leads are in place. Lungs and pleura: Small bilateral pleural effusions are noted, left greater than right, with adjacent atelectasis. Superimposed process such as aspiration/pneumonia cannot be excluded in the lower lungs. There is central pulmonary venous congestion without overt edema. No large pneumothorax is identified. Cardiomediastinal silhouette: Cardiac silhouette is enlarged with pulmonary venous congestion. Other: Remote right mid to lower fractures are noted. Loss Prevention Operations Manager: PSCB Transcribe Date/Time: Jan 20 2018 10:49A Dictated by : JANESSA HAMILTON MD This examination was interpreted and the report reviewed and electronically signed by: JANESSA HAMILTON MD on Jan 20 2018 10:52AM EST [id number] + ALL Collected: 01/20/2018 Status: F Source: [place] 4:10 AM [facility] REPOSITORY TYPE CODE TESTS RESULT OUT OF REFERENCE UNITS RANGE LAB VPH 7.32-7.42 pH 7.34 LAB VPC2 42-55 mm Hg pCO2 51 LAB VPO2 35-45 mm Hg pO2 40 LAB VBE mmol/L Base Excess 1 LAB VHC3 24-28 mmol/L Bicarbonate 27 LAB VC2C 25-29 mmol/L CO2 Content 28 LAB O2HBCX 60-85 % Oxyhemoglobin, Jorge Luis. 68 LAB CO <2.0 % High Carboxyhemoglobin,V 2.3 en LAB METHB 0.4-1.5 % Methemoglobin 1.2 LAB VTMP C Temperature, Body 37.0 LAB VPHTC 7.32-7.42 pH, Temp Corrected 7.34 LAB VPC2T mm Hg pCO2, Temp Correct 51 LAB VPO2T mm Hg pO2, Temp Corrected 40 LAB NAB 135-146 mmol/L Sodium,Whole Bld Low 134 LAB KWB 3.5-5.0 mmol/L Potassium, Whole Bld 4.6 LAB HGBB 13.0-17.0 g/dL Low Hemoglobin,Total,AC 8.6 L LAB HCTB 39.0-51.0 % Hematocrit, ACL Low 27 LAB IC 1.08-1.30 mmol/L Calcium, Ion, WB 1.18 LAB GLB 60-105 mg/dL Glucose,Whole Bld High 123 LAB LACT 0.5-2.2 mmol/L Lactate 1.7 Performed By: #### VALLBG #### [facility] [address] [place], [place] [address] GASA + ALL Collected: 01/20/2018 Status: F Source: [place] FOR 4:08 AM [facility] RADIANCE USE ONLY REPOSITORY TYPE CODE TESTS RESULT OUT OF REFERENCE UNITS RANGE LAB PH 7.35-7.45 pH 7.37 LAB PCO2 34-46 mm Hg pCO2 46 LAB PO2 85-95 mm Hg pO2 High 118 LAB BE mmol/L Base Excess 1 LAB HCO3 22-26 mmol/L Bicarbonate 26 LAB CO2CT 22.0-28.0 mmol/L CO2 Content 27 LAB O2HB 95-98 % Oxyhemoglobin, Art. 95 LAB COHB 0-5.0 % Carboxyhemoglobin,A 2.4 rt LAB MHGB 0.4-1.5 % Methemoglobin 1.2 LAB TEMP C Temperature, Body 37.0 LAB PHTC 7.35-7.45 pH, Temp Corrected 7.37 LAB PCO2T 34-46 mm Hg pCO2, Temp Correct 46 LAB PO2T mm Hg pO2, Temp Corrected 118 LAB NAB 135-146 mmol/L Sodium,Whole Bld Low 134 LAB KWB 3.5-5.0 mmol/L Potassium, Whole Bld 4.6 LAB HGBB 13.0-17.0 g/dL Low Hemoglobin,Total,AC 8.6 L LAB HCTB 39.0-51.0 % Hematocrit, ACL Low 27 LAB IC 1.08-1.30 mmol/L Calcium, Ion, WB 1.19 LAB GLB 60-105 mg/dL Glucose,Whole Bld High 125 LAB LACT 0.5-2.2 mmol/L Lactate 1.7 Performed By: #### ALLBG #### [facility] [address] [place], [place] [address] CBC Collected: 01/20/2018 Status: F Source: [place] 3:50 AM [facility] REPOSITORY TYPE CODE TESTS RESULT OUT OF REFERENCE UNITS RANGE LAB WBC 3.70-11.00 k/uL WBC 4.31 LAB RBC 4.20-6.00 m/uL Low RBC 2.79 LAB HGB 13.0-17.0 g/dL Low Hemoglobin 8.4 LAB HCT 39.0-51.0 % Low Hematocrit 25.7 LAB MCV 80.0-100.0 fL MCV 92.1 LAB MCH 26.0-34.0 pG MCH 30.1 LAB MCHC 30.5-36.0 g/dL MCHC 32.7 LAB RDWCV 11.5-15.0 % RDW-CV High 19.3 LAB PLTCT 150-400 k/uL Low Platelet Count 94 Result Comment: Result checked and verified No clot detected. LAB MPV 9.0-12.7 fL MPV 10.4 LAB ABSNUC <0.01 k/uL Absolute nRBC <0.01 Performed By: #### CBC, CMP, RUBIO #### [facility] [address] [place], [place] [address] COMP METABOLIC PANEL Collected: 01/20/2018 Status: F Source: [place] 3:50 AM [facility] REPOSITORY TYPE CODE TESTS RESULT OUT OF REFERENCE UNITS RANGE LAB TP 6.3-8.0 g/dL Low Protein, Total 5.5 LAB ALB 3.9-4.9 g/dL Low Albumin 2.1 LAB CA 8.5-10.2 mg/dL Low Calcium, Total 8.0 LAB TBIL 0.2-1.3 mg/dL Bilirubin, Total 0.5 LAB ALKP 38-113 U/L Alkaline Phosphatase 97 LAB AST 14-40 U/L AST High 54 LAB GLU 74-99 mg/dL Glucose High 126 Result Comment: The [place] [employer] (ADA) provides guidance for cutoff values for fasting glucose and random glucose. The ADA defines fasting as no caloric intake for at least 8 hours. Fas ting plasma glucose results between 100 to 125 mg/dL indicate increased risk for diabetes (prediabetes). Fasting plasma glucose results greater than or equal to 126 mg/dL meet the criteria for diagnosis of diabetes. In the absence of unequivocal hyperglycemia, results should be confirmed by repeat testing. In a patient with classic symptoms of hyperglycemia or hyperglycemic crisis, random plasma glucose results greater than or equal to 200 mg/dL meet the criteria for diagnosis of diabetes. Reference: Standards of Medical Care in Diabetes 2016, [place] [employer] Association. Diabetes Care. 2016.39(Suppl 1). LAB BUN 9-24 mg/dL BUN 21 LAB CRET 0.73-1.22 mg/dL Creatinine High 4.23 LAB NA 136-144 mmol/L Sodium 136 LAB K 3.7-5.1 mmol/L Potassium 5.0 LAB CL 97-105 mmol/L Chloride 99 LAB CO2 22-30 mmol/L CO2 25 LAB AGAP 9-18 mmol/L Anion Gap 12 LAB ALT 10-54 U/L ALT 26 LAB GFRAA eGFR- Amer. 17 LAB GFRNAA . eGFR-All Other Races 14 Result Comment: eGFR (Estimated GFR) Units of measure: mL/min/1.73 meters squared eGFR is derived from the reexpressed MDRD Study equation using the following parameters: serum creatinine, age, gender and race. The creatinine assay has been calibrated to be traceable to IDMS. An eGFR <60 mL/min/1.73m2 for >3 months is consistent with chronic kidney disease. Refer to KDOQI guidelines for clinical interpretation. In patients with unstable renal function, e.g. those with acute kidney injury, the eGFR may not accurately reflect actual GFR. Performed By: #### CBC, CMP, RUBIO #### [facility] [address] [place], [place] [address] TROPONIN T Collected: 01/20/2018 Status: F Source: [place] 3:50 AM [facility] REPOSITORY TYPE CODE TESTS RESULT OUT OF REFERENCE UNITS RANGE LAB TROPT 0.000-0.029 ng/mL High Troponin T 0.947 Result Comment: Called to and read back by: Isa Hidalgo RN [id number] 01/20/2018 0548 by Cash De Dios. Performed By: #### CBC, CMP, RUBIO #### [facility] [address] [place], [place] [address] HISTORY PHYSICAL Observed: 01/19/2018 Status: COMPLETED Source: [place] 11:00 PM [facility] REPOSITORY HNO ID: [id number] Author: Ray Villalba Service: Critical Care Author Type: Physician Type: HANDP Filed: 01/19/2018 11:01 PM Note Text: [facility] Admission Note Name: Frank Rivera Principal Diagnosis: Intravenous catheter in place Indication for Surgery: Infective endocarditis of aortic valve Preop LVEF: Normal RVF: mild Postop LVEF: Normal RVF: mild Important/Relevant PMH/PSH: Atrial fibrillation /p PPM and DCCV in 04/2017 on apixaban 5mg BID on metoprolol 12.5mg BID, HTN ,Hypothyroidism Aortic Stenosis s/p bioprosthetic AVR (27mm St. 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 MICU transfer to initiate dialysis secondary to volume overload. CHANDRAKANT 01/01 showed AV vegitation. Airway Difficulty: Grade II - No special instrumentation Pacing Wires: No Chronological List of Surgeries and Major Events (Diagnosis): (Surgeries in bold characters) 01/19/2018: Prosthetic aortic valve explant, Homograft implant as valve/root/ascending aorta and reimplantation of coronary buttons Explant of right atrial and right ventricular endocardial leads and explant of generator left upper pectoral area Implant of epicardial leads on right atrium, right ventricule and left ventricle Pacemaker generator insertion left pre-rectus sheath A/P of Major Active Problems (excluding routine care and common problems): Coagulopathic massive transfusion, rectus sheath hematoma during Epicardial leads implants. To Do or to Watch: - WTE after correcting coagulopathy. - Bartonella positive, on IV doxycycline and ceftriaxone -TDC in IR 01/18. Last dialysis 01/18 Discharge Planning: Anticipated Discharge Date: TBD Barriers to Discharge: Unknown Care Management Discharge Needs: Needs Prior to Discharge: To Be Determined;Facility or Agency Choices;Procedure;Other: See Comment Additional Hospital Problems Problem Subacute Bacterial Endocarditis History: Bartonella henselae Assessment: On rocephin and doxy Plan: SP AVR 01/19 Continue ABx per ID,. Irina (Acute Kidney Injury) (Hcc) History: IRINA. No Hx CKD Assessment: C3 nephropathy Plan: - IHD per nephrology. TDC in IR 01/18. - will need dialysis. Rectus Sheath Hematoma History: Pt with hematoma found on CT. Had renal Bx at OSH? Assessment: Stable by repeat CT Plan: Monitor Malnutrition of Moderate Degree (Hcc) History: Per nutrition Assessment: In the context of Acute Illness or Injury based on: Insufficient Energy Intake: <75% for >7 days Subcutaneous Fat Loss: Mild Loss Muscle Loss Mild Loss Plan: Intervention: Restart diet when extubated Stress Hyperglycemia insulin drip then SSI Pain, Postoperative, Acute IV fentanyl pushes then PIPELINE CONSTRUCTION INSPECTOR when extuabted, lido patch, oxy PRN Acute Blood Loss Anemia TRANSFUSE NEEDED Infusions: Propofol CVICU Admission ECG: Reviewed PACED CVICU Admission CXR: Reviewed STABLE Neuro: Sedation . Cardiovascular: Rhythm: regular rate and rhythm and Rate:paced MAP: 75 mmHg Cardiac Index: 4.4 L/min/m2 Pacemaker : Permanent - Pacing Mode: DDD ICD: No Peripheral pulses present: All present Pulmonary: Clear to auscultation and Breath sounds equal Ventilator: Intubated Potential prolonged intubation : No Abdominal: Soft and Non-tender Continued need for urinary catheter: Yes - clinical indication: Patient post major surgery requiring fluid balance and input and output measurement. DAY OF SURGERY PLAN: Standard Protocol, intubated patient: Cardiovascular monitoring, stabilization of blood pressure and cardiac function, wean to extubate when ready per protocol. Pain control, glycemic control, DVT prophylaxis, antibiotic prophylaxis. NOTE OF PERSONAL INVOLVEMENT IN CARE This patient has a high probability of sudden, clinically significant deterioration, which requires the highest level of preparedness to intervene urgently. I participated in the decision making and personally managed or directed the plan of care, including the following medical problems that required my frequent assessment to treat or prevent imminent deterioration: Problem Subacute Bacterial Endocarditis Irina (Acute Kidney Injury) (Hcc) Rectus Sheath Hematoma Malnutrition of Moderate Degree (Hcc) Stress Hyperglycemia Pain, Postoperative, Acute Acute Blood Loss Anemia I personally spent 32 minutes of critical care time treating the patient. Time devoted to teaching and to any procedures I billed separately is not included. SIGNATURE: Ray Villalba MD DATE of SERVICE: 01/19/2018 TIME of SERVICE: 11:01 PM EKG1 Observed: 01/19/2018 Status: F Source: [place] 10:37 PM [facility] REPOSITORY NAME : FRANK RIVERA PID : [id number] : 1955 Gender : Male Race : ORD : Procedure Date : Jan 19 2018 22:37:05 Edit Date : Jan 26 2018 10:32:36 Diagnosis:AV DUAL-PACED RHYTHM ABNORMAL ECG Confirmed by SHAI BECKMAN MD ([id number]) on 01/26/2018 10:32:30 AM Ventricular Rate : 80 BPM Atrial Rate : 81 BPM P-R Interval : 156 ms QRS Duration : 150 ms Q-T Interval : 472 ms QTC Calculation(Bezet) : 544 ms P Killbuck : 94 degrees R Killbuck : -88 degrees T Killbuck : 92 degrees Test Reason : Location : 367 : [id number] Overread By : SHAI BECKMAN MD Edited By : SHAI BECKMAN MD Referred By : , Acquired by : [id number], GASV + ALL Collected: 01/19/2018 Status: F Source: [place] 10:03 PM [facility] REPOSITORY TYPE CODE TESTS RESULT OUT OF REFERENCE UNITS RANGE LAB VPH 7.32-7.42 pH 7.35 LAB VPC2 42-55 mm Hg pCO2 51 LAB VPO2 35-45 mm Hg pO2 43 LAB VBE mmol/L Base Excess 2 LAB VHC3 24-28 mmol/L Bicarbonate 27 LAB VC2C 25-29 mmol/L CO2 Content 29 LAB O2HBCX 60-85 % Oxyhemoglobin, Jorge Luis. 70 LAB CO <2.0 % Carboxyhemoglobin,V 1.9 en LAB METHB 0.4-1.5 % Methemoglobin Low 0.3 LAB VTMP C Temperature, Body 37.0 LAB VPHTC 7.32-7.42 pH, Temp Corrected 7.35 LAB VPC2T mm Hg pCO2, Temp Correct 51 LAB VPO2T mm Hg pO2, Temp Corrected 43 LAB NAB 135-146 mmol/L Sodium,Whole Bld 135 LAB KWB 3.5-5.0 mmol/L Potassium, Whole Bld 4.5 LAB HGBB 13.0-17.0 g/dL Low Hemoglobin,Total,AC 9.1 L LAB HCTB 39.0-51.0 % Hematocrit, ACL Low 28 LAB IC 1.08-1.30 mmol/L Calcium, Ion, WB 1.16 LAB GLB 60-105 mg/dL Glucose,Whole Bld High 124 LAB LACT 0.5-2.2 mmol/L Lactate 1.0 Performed By: #### VALLBG #### [facility] [address] [place], [place] [address] GASA + ALL Collected: 01/19/2018 Status: F Source: [place] FOR 9:38 PM [facility] RADIANCE USE ONLY REPOSITORY TYPE CODE TESTS RESULT OUT OF REFERENCE UNITS RANGE LAB PH 7.35-7.45 pH 7.37 LAB PCO2 34-46 mm Hg pCO2 46 LAB PO2 85-95 mm Hg pO2 Low 81 LAB BE mmol/L Base Excess 1 LAB HCO3 22-26 mmol/L Bicarbonate 26 LAB CO2CT 22.0-28.0 mmol/L CO2 Content 27 LAB O2HB 95-98 % Oxyhemoglobin, Low Art. 93 LAB COHB 0-5.0 % Carboxyhemoglobin,A 2.5 rt LAB MHGB 0.4-1.5 % Methemoglobin 0.8 LAB TEMP C Temperature, Body 37.0 LAB PHTC 7.35-7.45 pH, Temp Corrected 7.37 LAB PCO2T 34-46 mm Hg pCO2, Temp Correct 46 LAB PO2T mm Hg pO2, Temp Corrected 81 LAB NAB 135-146 mmol/L Sodium,Whole Bld 137 LAB KWB 3.5-5.0 mmol/L Potassium, Whole Bld 4.6 LAB HGBB 13.0-17.0 g/dL Low Hemoglobin,Total,AC 9.3 L LAB HCTB 39.0-51.0 % Hematocrit, ACL Low 29 LAB IC 1.08-1.30 mmol/L Calcium, Ion, WB 1.16 LAB GLB 60-105 mg/dL Glucose,Whole Bld High 126 LAB LACT 0.5-2.2 mmol/L Lactate 1.3 Performed By: #### ALLBG #### [facility] [address] [place], [place] [address] XR CHEST 1V FRONTAL Observed: 01/19/2018 Status: F Source: [facility] 9:08 PM [facility] REPOSITORY * * *Final Report* * * DATE OF EXAM: Jan 19 2018 9:08PM JIX [id number] - XR CHEST 1V FRONTAL PORT / PROCEDURE REASON: Chest pain or SOB, pleurisy or effusion suspected * * * * Physician Interpretation * * * * EXAMINATION: CHEST RADIOGRAPH (PORTABLE SINGLE VIEW AP) Exam Date/Time: 01/19/2018 9:08 PM Clinical History: Chest pain or SOB, pleurisy or effusion suspected, MQ: XCPMC_5 Comparison: 12/27/2017 RESULT: See impression. IMPRESSION: Lines, tubes, and devices: Redo median sternotomy. Support devices are unremarkable. Lungs and pleura: Slight improvement of hazy basilar opacities suggestive of atelectasis with possible superimposed edema and/or inflammation. Underlying small pleural effusions remain. Cardiomediastinal silhouette: Stable cardiomediastinal silhouette. Other: . Loss Prevention Operations Manager: PSCB Transcribe Date/Time: Jan 19 2018 9:35P Dictated by : ARLEN AGARWAL MD This examination was interpreted and the report reviewed and electronically signed by: ARLEN AGARWAL MD on Jan 19 2018 9:36PM EST [id number] POST Observed: 01/19/2018 Status: COMPLETED Source: [place] 9:00 PM [facility] REPOSITORY HNO ID: [id number] Author: Rocco Christian Service: Anesthesiology Author Type: Physician Type: Anesthesia PostOp Filed: 01/19/2018 9:02 PM Note Text: POST ANESTHESIA EVALUATION NOTE SERVICE DATE: 01/19/2018 SERVICE TIME: 2029 : 1955 Vitals: 01/18/18185801/18/18224401/19/1824701/19/18 0558 Temp: 36.6 ?C (97.8 ?F) 36.9 ?C (98.4 ?F) 36.9 ?C (98.4 ?F) 37.1 ?C (98.7 ?F) 01/18/18201601/18/18224401/19/1824701/19/18 0558 BP: 139/79 142/75 136/65 136/76 01/18/18201601/18/18224401/19/1824701/19/18 0558 Pulse: (!) 59 60 62 70 01/18/18185801/18/18224401/19/1824701/19/18 0558 Resp: 18 01/18/18185801/18/18224401/19/1824701/19/18 0558 SpO2: 100% 93% 92% 95% Validated Vital Signs: Yes POST ANES STATUS: PACU/ICU Patient Condition: Stable Neurological Status: On intravenous sedation. Pulmonary Status: On invasive mechanical ventilation. Airway Control: Intubated on mechanical ventilation. Cardiovascular Status: Stable Pain: Adequately controlled Postoperative Nausea/Vomiting: No significant post operative nausea or vomiting Postoperative Hydration Status: Adequate. Intra-Operative Events: No Significant Anesthesia Events Anesthetic Complications: None Recommendation: Continue current plan of care Other Remarks: SIGNATURE: Rocco Christian MD PATIENT NAME: Frank Rivera DATE: January 19, 2018 TIME: 9:00 PM PAGER/CONTACT #: [phone] STAPH AUREUS PCR Collected: 01/19/2018 Status: F Source: PLANO 9:00 PM [facility] REPOSITORY TYPE CODE TESTS RESULT OUT OF REFERENCE UNITS RANGE LAB SASRC Nasal S aureus Spec Source LAB MRSRES Negative for MRSA MRSA by PCR. PCR LAB SARES Negative for Staph Staphylococcus aureus PCR aureus by PCR. Performed By: #### SAPCR #### [facility] [address] [place], [place] [address] ECG COMPLETE W Observed: 01/19/2018 Status: F Source: PLANO INTERPRETATION 8:43 PM [facility] REPOSITORY NAME : FRANK RIVERA PID : [id number] : 1955 Gender : Male Race : ORD : [id number] Procedure Date : Jan 19 2018 20:43:08 Edit Date : Jan 20 2018 09:46:14 Diagnosis:WIDE QRS RHYTHM COMPLETE RIGHT BUNDLE BRANCH BLOCK LEFT POSTERIOR FASCICULAR BLOCK BIFASCICULAR BLOCK ABNORMAL ECG Confirmed by MD BERTRAND, PhD, AKI ([id number]) on 01/20/2018 9:46:10 AM Ventricular Rate : 104 BPM Atrial Rate : 73 BPM QRS Duration : 140 ms Q-T Interval : 398 ms QTC Calculation(Bezet) : 523 ms R Killbuck : 157 degrees T Killbuck : 23 degrees Test Reason : C3 NEPHROPATHY Location : [id number] : [id number] Overread By : MD BERTRAND, PhD,AKI Edited By : MD BERTRAND, PhD,AKI Referred By : , Acquired by : [id number], CBC Collected: 01/19/2018 Status: F Source: PLANO 8:34 PM [facility] REPOSITORY TYPE CODE TESTS RESULT OUT OF REFERENCE UNITS RANGE LAB WBC 3.70-11.00 k/uL WBC 5.01 LAB RBC 4.20-6.00 m/uL Low RBC 2.96 LAB HGB 13.0-17.0 g/dL Low Hemoglobin 8.9 LAB HCT 39.0-51.0 % Low Hematocrit 27.0 LAB MCV 80.0-100.0 fL MCV 91.2 LAB MCH 26.0-34.0 pG MCH 30.1 LAB MCHC 30.5-36.0 g/dL MCHC 33.0 LAB RDWCV 11.5-15.0 % RDW-CV High 18.8 LAB PLTCT 150-400 k/uL Low Platelet Count 101 LAB MPV 9.0-12.7 fL MPV 9.6 LAB ABSNUC <0.01 k/uL Absolute nRBC <0.01 Performed By: #### CBC, PTT, FIBCT, PT, BMP #### [facility] [address] [place], [place] [address] APTT Collected: 01/19/2018 Status: F Source: PLANO 8:34 [facility] REPOSITORY TYPE CODE TESTS RESULT OUT OF RANGE REFERENCE UNITS LAB APTT 23.0-32.4 sec High APTT 32.8 Result Comment: Unfractionated Heparin Therapeutic Ranges: Standard Heparin Nomogram: 53 to 78 seconds (anti-Xa level of 0.3 to 0.7 U/ml) Low Dose/ACS Nomogram: 49 to 67 seconds (anti-Xa level of 0.2 to 0.5 U/ml) Stroke Treatment Nomogram: 49 to 67 seconds (anti-Xa level of 0.2 to 0.5 U/ml) Note: The APTT therapeutic range has been determined for the current lot of laboratory APTT reagent in use throughout the [facility]. Performed By: #### CBC, PTT, FIBCT, PT, BMP #### [facility] [employer] [address] [place], [place] [address] FIBRINOGEN Collected: 01/19/2018 Status: F Source: PLANO 8:34 [facility] REPOSITORY TYPE CODE TESTS RESULT OUT OF REFERENCE UNITS RANGE LAB FIBCT 200-400 mg/dL Fibrinogen 289 Performed By: #### CBC, PTT, FIBCT, PT, BMP #### [facility] [employer] [address] [place], [place] [address] PROTIME Collected: 01/19/2018 Status: F Source: PLANO 8:34 [facility] REPOSITORY TYPE CODE TESTS RESULT OUT OF RANGE REFERENCE UNITS LAB PSEC 9.7-13.0 sec High PT Sec 13.7 LAB INR 0.9-1.3 PT INR 1.3 Result Comment: Vitamin K Antagonist (VKA) Therapeutic Range: INR 2 to 3 (Target INR of 2.5) Note: For patients treated with VKA drugs, such as warfarin, the [place] [employer] 2012 Guideline recommends a therapeutic INR range of 2 to 3 (target INR of 2.5). This recommendation includes high-risk patients with antiphospholipid syndrome with previous arterial or venous thromboembolism, current-generation mechanical or bioprosthetic aortic heart valve replacement. Note: Patients with mechanical aortic valve replacement and additional risk factors for thromboembolic events (atrial fibrillation, previous thromboembolism, LV dysfunction, hypercoagulable conditions) or an older generation mechanical AVR (i.e., ball in-Cage) or any mechanical MVR should have a INR therapeutic range of 2.5 to 3.5 (target INR of 3). Milo GH, et al. Chest 2012, 141:7S-47S Mateo STINSON, et al. [facility] 2017, 70: [phone] Performed By: #### CBC, PTT, FIBCT, PT, BMP #### [facility] [address] [place], [place] [address] BASIC METABOLIC PANL Collected: 01/19/2018 Status: F Source: PLANO 8:34 PM [facility] REPOSITORY TYPE CODE TESTS RESULT OUT OF REFERENCE UNITS RANGE LAB GLU 74-99 mg/dL High Glucose 123 Result Comment: The [place] Diabetes Association (ADA) provides guidance for cutoff values for fasting glucose and random glucose. The ADA defines fasting as no caloric intake for at least 8 hours. Fas ting plasma glucose results between 100 to 125 mg/dL indicate increased risk for diabetes (prediabetes). Fasting plasma glucose results greater than or equal to 126 mg/dL meet the criteria for diagnosis of diabetes. In the absence of unequivocal hyperglycemia, results should be confirmed by repeat testing. In a patient with classic symptoms of hyperglycemia or hyperglycemic crisis, random plasma glucose results greater than or equal to 200 mg/dL meet the criteria for diagnosis of diabetes. Reference: Standards of Medical Care in Diabetes 2016, [place] [employer] Association. Diabetes Care. 2016.39(Suppl 1). LAB BUN 9-24 mg/dL BUN 20 LAB CRET 0.73-1.22 mg/dL Creatinine High 3.79 LAB NA 136-144 mmol/L Sodium 137 LAB K 3.7-5.1 mmol/L Potassium 4.7 LAB CL 97-105 mmol/L Chloride 98 LAB CO2 22-30 mmol/L CO2 27 LAB AGAP 9-18 mmol/L Anion Gap 12 LAB CA 8.5-10.2 mg/dL Low Calcium, Total 7.9 LAB GFRAA eGFR- Amer. 20 LAB GFRNAA . eGFR-All Other Races 16 Result Comment: eGFR (Estimated GFR) Units of measure: mL/min/1.73 meters squared eGFR is derived from the reexpressed MDRD Study equation using the following parameters: serum creatinine, age, gender and race. The creatinine assay has been calibrated to be traceable to IDMS. An eGFR <60 mL/min/1.73m2 for >3 months is consistent with chronic kidney disease. Refer to KDOQI guidelines for clinical interpretation. In patients with unstable renal function, e.g. those with acute kidney injury, the eGFR may not accurately reflect actual GFR. Performed By: #### CBC, PTT, FIBCT, PT, BMP #### [facility] [address] [place], [place] [address] BRIEF OP NOT Observed: 01/19/2018 Status: COMPLETED Source: PLANO 8:16 PM [facility] REPOSITORY HNO ID: [id number] Author: Vikas King Service: Cardiac Surgery Author Type: Physician Type: Brief Op Note Filed: 01/20/2018 6:10 AM Note Text: CARDIOTHORACIC BRIEF OP NOTE LOG ID: [id number] SURGERY/PROCEDURE DATE: 01/19/2018 INCISION/PROCEDURE START TIME: 1:25 PM INCISION CLOSE/PROCEDURE END TIME: SURGEON(S) AND METER TESTER PRIMARY(S): Surgeon(s) and Role: * Elmer Alarcon - Primary * Vikas King - Assisting Registered Nurse Director College: [employer] (Rn) Joe RN; Neida (Rn) DIEUDONNE MorrisBIOLOGICAL SCIENCE AIDE AND ANESTHESIA: Procedure(s) and Anesthesia Type: * AVR W/ CARDIOPULMONARY BYPASS W/ PROSTHETIC OTHER THAN HOMOGRAFT/ STENTLESS TISSUE VALVE - General * REPLACEMENT MITRAL VALVE W/ CARDIOPULMONARY BYPASS - General Redo sternotomy (2nd OHS, 1st redo) Prosthetic aortic valve explant Homograft implant as valve/root/ascending aorta and reimplantation of coronary buttons Tricuspid valve repair - Gretta stitch Explant of right atrial and right ventricular endocardial leads and explant of generator left upper pectoral area Implant of epicardial leads on right atrium, right ventricule and left ventricle Pacemaker generator insertion left pre-rectus sheath No temporary pacing wires 32F straight chest tube mediastinum 28F right angle chest tube left pleural space ANESTHESIA: General BRIEF FINDINGS: annular abscess, severe coagulopathy PREOPERATIVE DIAGNOSIS: prosthetic-valve bacterial endocarditis POSTOPERATIVE DIAGNOSIS: prosthetic-valve bacterial endocarditis ESTIMATED BLOOD LOSS: 500 ml SPECIMENS: prosthetic aortic valve COMPLICATIONS: None SIGNATURE: Vikas King MD PATIENT NAME: Frank Rivera DATE: January 19, 2018 TIME: 8:16 PM PAGER/CONTACT #: [phone] FIBRINOGEN Collected: 01/19/2018 Status: F Source: PLANO 7:33 PM [facility] REPOSITORY TYPE CODE TESTS RESULT OUT OF REFERENCE UNITS RANGE LAB FIBCT 200-400 mg/dL Fibrinogen 219 Performed By: #### FIBCT, PT, PTT, PLTCT #### [facility] [employer] [address] [place], [place] [address] PROTIME Collected: 01/19/2018 Status: F Source: PLANO 7:33 PM [facility] REPOSITORY TYPE CODE TESTS RESULT OUT OF RANGE REFERENCE UNITS LAB PSEC 9.7-13.0 sec High PT Sec 15.2 LAB INR 0.9-1.3 High PT INR 1.5 Result Comment: Vitamin K Antagonist (VKA) Therapeutic Range: INR 2 to 3 (Target INR of 2.5) Note: For patients treated with VKA drugs, such as warfarin, the [place] [employer] 2012 Guideline recommends a therapeutic INR range of 2 to 3 (target INR of 2.5). This recommendation includes high-risk patients with antiphospholipid syndrome with previous arterial or venous thromboembolism, current-generation mechanical or bioprosthetic aortic heart valve replacement. Note: Patients with mechanical aortic valve replacement and additional risk factors for thromboembolic events (atrial fibrillation, previous thromboembolism, LV dysfunction, hypercoagulable conditions) or an older generation mechanical AVR (i.e., ball in-Cage) or any mechanical MVR should have a INR therapeutic range of 2.5 to 3.5 (target INR of 3). Milo GH, et al. Chest 2012, 141:7S-47S Mateo RA, et al. [facility] 2017, 70: 252-289 Performed By: #### FIBCT, PT, PTT, PLTCT #### [facility] [employer] [address] [place], [place] [address] APTT Collected: 01/19/2018 Status: F Source: PLANO 7:33 PM [facility] REPOSITORY TYPE CODE TESTS RESULT OUT OF RANGE REFERENCE UNITS LAB APTT 23.0-32.4 sec High APTT 33.9 Result Comment: Unfractionated Heparin Therapeutic Ranges: Standard Heparin Nomogram: 53 to 78 seconds (anti-Xa level of 0.3 to 0.7 U/ml) Low Dose/ACS Nomogram: 49 to 67 seconds (anti-Xa level of 0.2 to 0.5 U/ml) Stroke Treatment Nomogram: 49 to 67 seconds (anti-Xa level of 0.2 to 0.5 U/ml) Note: The APTT therapeutic range has been determined for the current lot of laboratory APTT reagent in use throughout the [facility]. Performed By: #### FIBCT, PT, PTT, PLTCT #### [facility] [employer] [address] [place], [place] [address] PLATELET COUNT Collected: 01/19/2018 Status: F Source: PLANO 7:33 PM [facility] REPOSITORY TYPE CODE TESTS RESULT OUT OF REFERENCE UNITS RANGE LAB PLTCT 150-400 k/uL Low Platelet Count 76 Result Comment: No clot detected. Performed By: #### FIBCT, PT, PTT, PLTCT #### [facility] [employer] [address] [place], [place] [id number] GASA + ALL Collected: 01/19/2018 Status: F Source: PLANO FOR 7:31 PM [facility] RADIANCE USE ONLY REPOSITORY TYPE CODE TESTS RESULT OUT OF REFERENCE UNITS RANGE LAB PH 7.35-7.45 pH 7.39 LAB PCO2 34-46 mm Hg pCO2 43 LAB PO2 85-95 mm Hg pO2 High 324 LAB BE mmol/L Base Excess 1 LAB HCO3 22-26 mmol/L Bicarbonate 25 LAB CO2CT 22.0-28.0 mmol/L CO2 Content 27 LAB O2HB 95-98 % Oxyhemoglobin, Art. 97 LAB COHB 0-5.0 % Carboxyhemoglobin,A 2.8 rt LAB MHGB 0.4-1.5 % Methemoglobin 0.6 LAB TEMP C Temperature, Body 37.0 LAB PHTC 7.35-7.45 pH, Temp Corrected 7.39 LAB PCO2T 34-46 mm Hg pCO2, Temp Correct 43 LAB PO2T mm Hg pO2, Temp Corrected 324 LAB NAB 135-146 mmol/L Sodium,Whole Bld Low 134 LAB KWB 3.5-5.0 mmol/L Potassium, Whole Bld 4.4 LAB HGBB 13.0-17.0 g/dL Low Hemoglobin,Total,AC 8.2 L LAB HCTB 39.0-51.0 % Hematocrit, ACL Low 25 LAB IC 1.08-1.30 mmol/L Calcium, Ion, WB Low 1.01 LAB GLB 60-105 mg/dL Glucose,Whole Bld High 134 LAB LACT 0.5-2.2 mmol/L Lactate 2.1 Performed By: #### ALLBG #### [facility] [employer] [address] [place], [place] [address] THROMBOGRAPH PANEL Collected: 01/19/2018 Status: F Source: PLANO 7:20 PM [facility] REPOSITORY TYPE CODE TESTS RESULT OUT OF REFERENCE UNITS RANGE LAB RTEG 4.0-10.0 min R Value High 12.7 LAB MATEG 51.0-69.0 mm Maximum Low Amplitude 45.3 LAB DEGANG 47.0-74.0 deg Degree Angle 56.0 LAB LY30 0.0-5.0 % Lysis Time 30 0.0 LAB CITEG Coagulation Index NEG 7 Result Comment: (NOTE) Reference range: NEG 4 to 2 The Coagulation Index, a secondary parameter, is labeled by the watch assembly instructor as for research use only and is used per the watch assembly instructor's instructions. Its performance characteristics were determined by [facility]'s [facility]yl [facility]ology and [facility] [place] in a manner consistent with CLIA requirements. This test has not been cleared by the U.S. Food and Drug Administration. LAB TEGINT Thrombograph Interp (NOTE) Result Comment: Performing Pathologist: Brie Saleh Interpretation: Abnormal - see comment below. A thromboelastograph (TEG) study was performed using citrate-anticoagulated whole blood treated with heparinase to neutralize a heparin effect. The R value, a measure of coagulation function, is prolonged. This indicates coagulation hypofunction. The Maximal Amplitude (MA), a measure of platelet function, is decreased. This is indicative of platelet hypofunction. The Angle, a measure of fibrinogen function, is within the normal range. This is indicative of normal fibrinogen concentration or function. The Ly30, a measure of fibrinolysis function, is normal. This is indicative of normal fibrinolytic function. The Coagulation Index (CI), a measure of hemostasis function, is decreased. The CI is a calculated parameter based on the other TEG results. Performed By: #### TEGPNP #### [facility] [employer] [address] [place], [place] [id number] GASA + ALL Collected: 01/19/2018 Status: F Source: PLANO FOR 6:41 PM [facility] RADIANCE USE ONLY REPOSITORY TYPE CODE TESTS RESULT OUT OF REFERENCE UNITS RANGE LAB PH 7.35-7.45 pH Low 7.34 LAB PCO2 34-46 mm Hg pCO2 46 LAB PO2 85-95 mm Hg pO2 High 263 LAB BE mmol/L Base Excess NEG 1 LAB HCO3 22-26 mmol/L Bicarbonate 25 LAB CO2CT 22.0-28.0 mmol/L CO2 Content 26 LAB O2HB 95-98 % Oxyhemoglobin, Art. 96 LAB COHB 0-5.0 % Carboxyhemoglobin,A 2.5 rt LAB MHGB 0.4-1.5 % Methemoglobin 1.4 LAB TEMP C Temperature, Body 37.0 LAB PHTC 7.35-7.45 pH, Temp Low Corrected 7.34 LAB PCO2T 34-46 mm Hg pCO2, Temp Correct 46 LAB PO2T mm Hg pO2, Temp Corrected 263 LAB NAB 135-146 mmol/L Sodium,Whole Bld Low 134 LAB KWB 3.5-5.0 mmol/L Potassium, Whole Bld 4.4 LAB HGBB 13.0-17.0 g/dL Low Hemoglobin,Total,AC 7.6 L LAB HCTB 39.0-51.0 % Hematocrit, ACL Low 24 LAB IC 1.08-1.30 mmol/L Calcium, Ion, WB Low 1.07 LAB GLB 60-105 mg/dL Glucose,Whole Bld High 135 LAB LACT 0.5-2.2 mmol/L Lactate High 2.4 Performed By: #### ALLBG #### [facility] [address] [place], [place] [address] THROMBOGRAPH HEPASE Collected: 01/19/2018 Status: F Source: PLANO 5:01 PM [facility] REPOSITORY TYPE CODE TESTS RESULT OUT OF REFERENCE UNITS RANGE LAB RTEGH 4.0-10.0 min R Value High (Hep) 12.7 LAB MATEGH 51.0-69.0 mm Maximum Low Amplit (Hep) 45.3 LAB DEGANH 47.0-74.0 deg Degree Angle (Hep) 61.0 LAB LY30H 0.0-5.0 % Lysis Time 30 (Hep) 0.0 LAB CITEGH Coagulation Ind(Hep) NEG 7 Result Comment: (NOTE) Reference Range: NEG 4 to 2 The Coagulation Index, a secondary parameter, is labeled by the watch assembly instructor as for research use only and is used per the watch assembly instructor's instructions. Its performance characteristics were determined by [facility]'s [facility]yl [facility] Pathology and Laboratory Medicine [place] in a manner consistent with CLIA requirements. This test has not been cleared by the U.S. Food and Drug Administration. LAB TEGINH Thrombograph Int(Hep) (NOTE) Result Comment: Performing Pathologist: Brie Saleh Interpretation: Abnormal - see comment below. A thromboelastograph (TEG) study was performed using citrate-anticoagulated whole blood treated with heparinase to neutralize a heparin effect. The R value, a measure of coagulation function, is prolonged. This indicates coagulation hypofunction. The Maximal Amplitude (MA), a measure of platelet function, is decreased. This is indicative of platelet hypofunction. The Angle, a measure of fibrinogen function, is within the normal range. This is indicative of normal fibrinogen concentration or function. The Ly30, a measure of fibrinolysis function, is normal. This is indicative of normal fibrinolytic function. The Coagulation Index (CI), a measure of hemostasis function, is decreased. The CI is a calculated parameter based on the other TEG results. Performed By: #### TEGHPP #### [facility] [address] [place], [place] [address] GASA + ALL Collected: 01/19/2018 Status: F Source: PLANO FOR 4:47 PM [facility] RADIANCE USE ONLY REPOSITORY TYPE CODE TESTS RESULT OUT OF REFERENCE UNITS RANGE LAB PH 7.35-7.45 pH 7.44 LAB PCO2 34-46 mm Hg pCO2 39 LAB PO2 85-95 mm Hg pO2 High 281 LAB BE mmol/L Base Excess 3 LAB HCO3 22-26 mmol/L Bicarbonate 26 LAB CO2CT 22.0-28.0 mmol/L CO2 Content 28 LAB O2HB 95-98 % Oxyhemoglobin, Art. 96 LAB COHB 0-5.0 % Carboxyhemoglobin,A 3.0 rt LAB MHGB 0.4-1.5 % Methemoglobin 1.0 LAB TEMP C Temperature, Body 37.0 LAB PHTC 7.35-7.45 pH, Temp Corrected 7.44 LAB PCO2T 34-46 mm Hg pCO2, Temp Correct 39 LAB PO2T mm Hg pO2, Temp Corrected 281 LAB NAB 135-146 mmol/L Sodium,Whole Bld Low 134 LAB KWB 3.5-5.0 mmol/L Potassium, Whole High Bld 5.3 LAB HGBB 13.0-17.0 g/dL Low Hemoglobin,Total,AC 8.1 L LAB HCTB 39.0-51.0 % Hematocrit, ACL Low 25 LAB IC 1.08-1.30 mmol/L Calcium, Ion, WB 1.14 LAB GLB 60-105 mg/dL Glucose,Whole Bld High 158 LAB LACT 0.5-2.2 mmol/L Lactate 1.2 Performed By: #### ALLBG #### [facility] [address] [place], [place] [address] GASA + ALL Collected: 01/19/2018 Status: F Source: PLANO FOR 3:54 PM [facility] RADIANCE USE ONLY REPOSITORY TYPE CODE TESTS RESULT OUT OF REFERENCE UNITS RANGE LAB PH 7.35-7.45 pH High 7.47 LAB PCO2 34-46 mm Hg pCO2 40 LAB PO2 85-95 mm Hg pO2 High 374 LAB BE mmol/L Base Excess 5 LAB HCO3 22-26 mmol/L Bicarbonate High 29 LAB CO2CT 22.0-28.0 mmol/L CO2 Content High 30 LAB O2HB 95-98 % Oxyhemoglobin, Art. 97 LAB COHB 0-5.0 % Carboxyhemoglobin,A 2.7 rt LAB MHGB 0.4-1.5 % Methemoglobin 0.7 LAB TEMP C Temperature, Body 37.0 LAB PHTC 7.35-7.45 pH, Temp High Corrected 7.47 LAB PCO2T 34-46 mm Hg pCO2, Temp Correct 40 LAB PO2T mm Hg pO2, Temp Corrected 374 LAB NAB 135-146 mmol/L Sodium,Whole Bld Low 134 LAB KWB 3.5-5.0 mmol/L Potassium, Whole High Bld 5.2 LAB HGBB 13.0-17.0 g/dL Low Hemoglobin,Total,AC 8.3 L LAB HCTB 39.0-51.0 % Hematocrit, ACL Low 26 LAB IC 1.08-1.30 mmol/L Calcium, Ion, WB 1.13 LAB GLB 60-105 mg/dL Glucose,Whole Bld High 129 LAB LACT 0.5-2.2 mmol/L Lactate 0.9 Performed By: #### ALLBG #### [place] [address] Observed: 01/19/2018 Status: F Source: PLANO TISSUE CULT / STAIN 3:30 PM [facility] REPOSITORY Smear Result - No organisms seen Rare Polymorphonuclear leukocytes Moderate Red Blood Cells Culture Result - No growth 5 days Performed By: #### TISCUL #### [place] [phone] Observed: 01/19/2018 Status: F Source: PLANO BACT PCR DIRECT 3:30 [facility] REPOSITORY Bacterial PCR Result - Bartonella species by 16S rDNA gene sequencing --> ABNORMAL ALERT The sensitivity of detecting bacterial DNA from direct specimen is dependent on the organism load in the sample received or any process that may introduce exogenous microorganisms or bacterial DNA into the sample submitted. This test was developed and its performance characteristics determined by [facility]'s [facility] Pathology and Laboratory [facility] [place] ([facility]). It has not been cleared or approved by the FDA. [facility] is regulated under CLIA as qualified to perform high-complexity testing. This test is used for clinical purposes. It should not be regarded as investigational or for research. Performed By: #### BCTPCR #### [place] [phone] Observed: 01/19/2018 Status: F Source: PLANO ANAEROBE CULTURE 3:30 PM [facility] REPOSITORY Culture Result - Negative for anaerobes. No Cutibacterium (Propionibacterium) acnes isolated. Performed By: #### ANACUL #### [place] [address] Observed: 01/19/2018 Status: F Source: PLANO FUNGAL CULT / SMEAR 3:30 PM [facility] REPOSITORY Smear Result - No fungus seen. Culture Result - No Fungus isolated after 28 days Performed By: #### FCULSM #### [address] [place], [place] [address] Observed: 01/19/2018 Status: F Source: PLANO AFB CULT AND STAIN 3:30 PM [facility] REPOSITORY Sp. Request/Comment: - Specimen collected in surgery. Specimen received in sterile container. Specimen received in sterile saline. Smear Result - No acid fast bacilli seen by fluorochrome stain Culture Result - No Acid Fast Bacilli isolated after 42 days Performed By: #### AFC #### [place] [id number] [place] [address] GASA + ALL Collected: 01/19/2018 Status: F Source: PLANO FOR 3:20 PM [facility] RADIANCE USE ONLY REPOSITORY TYPE CODE TESTS RESULT OUT OF REFERENCE UNITS RANGE LAB PH 7.35-7.45 pH 7.44 LAB PCO2 34-46 mm Hg pCO2 41 LAB PO2 85-95 mm Hg pO2 High 352 LAB BE mmol/L Base Excess 4 LAB HCO3 22-26 mmol/L Bicarbonate High 28 LAB CO2CT 22.0-28.0 mmol/L CO2 Content High 29 LAB O2HB 95-98 % Oxyhemoglobin, Art. 96 LAB COHB 0-5.0 % Carboxyhemoglobin,A 2.9 rt LAB MHGB 0.4-1.5 % Methemoglobin 1.0 LAB TEMP C Temperature, Body 37.0 LAB PHTC 7.35-7.45 pH, Temp Corrected 7.44 LAB PCO2T 34-46 mm Hg pCO2, Temp Correct 41 LAB PO2T mm Hg pO2, Temp Corrected 352 LAB NAB 135-146 mmol/L Sodium,Whole Bld Low 133 LAB KWB 3.5-5.0 mmol/L Potassium, Whole Bld 5.0 LAB HGBB 13.0-17.0 g/dL Low Hemoglobin,Total,AC 7.5 L LAB HCTB 39.0-51.0 % Hematocrit, ACL Low 24 LAB IC 1.08-1.30 mmol/L Calcium, Ion, WB Low 1.07 LAB GLB 60-105 mg/dL Glucose,Whole Bld High 131 LAB LACT 0.5-2.2 mmol/L Lactate 0.8 Performed By: #### ALLBG #### [facility] [address] [place], [place] [address] GASV + ALL Collected: 01/19/2018 Status: F Source: PLANO 3:18 PM [facility] REPOSITORY TYPE CODE TESTS RESULT OUT OF REFERENCE UNITS RANGE LAB VPH 7.32-7.42 pH 7.39 LAB VPC2 42-55 mm Hg pCO2 47 LAB VPO2 35-45 mm Hg pO2 High 71 LAB VBE mmol/L Base Excess 4 LAB VHC3 24-28 mmol/L Bicarbonate 28 LAB VC2C 25-29 mmol/L CO2 Content High 30 LAB O2HBCX 60-85 % Oxyhemoglobin, High Jorge Luis. 91 LAB CO <2.0 % High Carboxyhemoglobin,V 3.0 en LAB METHB 0.4-1.5 % Methemoglobin 1.1 LAB VTMP C Temperature, Body 37.0 LAB VPHTC 7.32-7.42 pH, Temp Corrected 7.39 LAB VPC2T mm Hg pCO2, Temp Correct 47 LAB VPO2T mm Hg pO2, Temp Corrected 71 LAB NAB 135-146 mmol/L Sodium,Whole Bld Low 134 LAB KWB 3.5-5.0 mmol/L Potassium, Whole Bld 4.9 LAB HGBB 13.0-17.0 g/dL Low Hemoglobin,Total,AC 7.6 L LAB HCTB 39.0-51.0 % Hematocrit, ACL Low 24 LAB IC 1.08-1.30 mmol/L Calcium, Ion, WB 1.12 LAB GLB 60-105 mg/dL Glucose,Whole Bld High 125 LAB LACT 0.5-2.2 mmol/L Lactate 0.7 Performed By: #### VALLBG #### [facility] [address] [place] [address] [place], [place] [address] GASA + ALL Collected: 01/19/2018 Status: F Source: PLANO FOR 2:38 PM [facility] RADIANCE USE ONLY REPOSITORY TYPE CODE TESTS RESULT OUT OF REFERENCE UNITS RANGE LAB PH 7.35-7.45 pH 7.44 LAB PCO2 34-46 mm Hg pCO2 41 LAB PO2 85-95 mm Hg pO2 High 190 LAB BE mmol/L Base Excess 4 LAB HCO3 22-26 mmol/L Bicarbonate High 28 LAB CO2CT 22.0-28.0 mmol/L CO2 Content High 29 LAB O2HB 95-98 % Oxyhemoglobin, Art. 96 LAB COHB 0-5.0 % Carboxyhemoglobin,A 3.2 rt LAB MHGB 0.4-1.5 % Methemoglobin 1.2 LAB TEMP C Temperature, Body 37.0 LAB PHTC 7.35-7.45 pH, Temp Corrected 7.44 LAB PCO2T 34-46 mm Hg pCO2, Temp Correct 41 LAB PO2T mm Hg pO2, Temp Corrected 190 LAB NAB 135-146 mmol/L Sodium,Whole Bld Low 132 LAB KWB 3.5-5.0 mmol/L Potassium, Whole Bld 4.3 LAB HGBB 13.0-17.0 g/dL Low Hemoglobin,Total,AC 6.9 L LAB HCTB 39.0-51.0 % Hematocrit, ACL Low 22 LAB IC 1.08-1.30 mmol/L Calcium, Ion, WB 1.15 LAB GLB 60-105 mg/dL Glucose,Whole Bld 87 LAB LACT 0.5-2.2 mmol/L Lactate 0.7 Performed By: #### ALLBG #### [facility] [address] [place], [place] [address] CONSULT PROG Observed: 01/19/2018 Status: COMPLETED Source: [place] 1:53 PM [facility] REPOSITORY HNO ID: [id number] Author: Rohit Olivas Service: Infectious Disease Author Type: Physician Type: Consult Progress Note Filed: 01/19/2018 1:55 PM Note Text: INFECTIOUS DISEASE CONSULT SERVICE PROGRESS NOTE Patient Name: Frank Rivera Interval Events: Course reviewed Plans for the operating room today No new events In addition to those reviewed and documented in the HPI all other systems reviewed and were negative. MEDICATIONS Medications reviewed. Current hospital medications: [MAR Hold due to Transfer] mupirocin 2% 0.5 g nasal ointment (BACTROBAN) 0.5 g NASAL BID [MAR Hold due to Transfer] Chlorhexidine Gluconate 0.12 % 15 mL (PERIDEX) 15 mL ORAL q 6 H [MAR Hold due to Transfer] 0.9% NaCl 10 mL 10 mL INTRAVENOUS q 12 H [MAR Hold due to Transfer] 0.9% NaCl 20 mL 20 mL INTRAVENOUS PRN [MAR Hold due to Transfer] doxycycline 100 mg in D5W 250 mL Vial-Mate (VIBRAMYCIN) 100 mg INTRAVENOUS q 12 H [MAR Hold due to Transfer] cefTRIAXone 2 g in D5W 100 mL MB+ (ROCEPHIN) 2 g INTRAVENOUS q 24 H [MAY Hold due to Transfer] docusate sodium 100 mg cap(s) (COLACE) 100 mg ORAL BID PRN [MAR Hold due to Transfer] polyethylene glycol 3350 17 g packet (MIRALAX, GLYCOLAX) 17 g ORAL DAILY PRN [MAR Hold due to Transfer] senna-docusate 8.6-50 mg 1 tablet (SENNA-S) 1 tablet ORAL/FEEDING TUBE BID PRN [MAR Hold due to Transfer] calcium carbonate 1,000 mg chewable tab(s) (TUMS) 1,000 mg ORAL/FEEDING TUBE BID PRN [MAR Hold due to Transfer] acetaminophen 650 mg tab(s) (TYLENOL) 650 mg ORAL q 4 H PRN [MAR Hold due to Transfer] sodium chloride 0.65 % 2 [place] (AYR, OCEAN) 2 [place] EACH NOSTRIL TID PRN [MAY Hold due to Transfer] mdnqqebl-enps-jckvz acid chewable tablet (CENTRUM) 1 tablet ORAL DAILY [MAR Hold due to Transfer] cholecalciferol 3,000 Units tab(s) (VITAMIN D3) 3,000 Units ORAL DAILY [MAR Hold due to Transfer] cyanocobalamin 500 mcg tab(s) (VITAMIN B-12) 500 mcg ORAL DAILY [MAR Hold due to Transfer] thiamine 100 mg tab(s) (VITAMIN B1) 100 mg ORAL DAILY [MAR Hold due to Transfer] diphenhydrAMINE 25 mg (BENADRYL) 25 mg ORAL q 6 H PRN [MAR Hold due to Transfer] aspirin, enteric coated 81 mg tab(s) 81 mg ORAL DAILY [MAR Hold due to Transfer] metoprolol tartrate (short acting) 12.5 mg tab(s) (LOPRESSOR) 12.5 mg ORAL BID [MAR Hold due to Transfer] tamsulosin ER 0.4 mg cap(s) (FLOMAX) 0.4 mg ORAL DAILY [MAR Hold due to Transfer] pantoprazole DR 40 mg tab(s) (PROTONIX) 40 mg ORAL BID [MAR Hold due to Transfer] levothyroxine 200 mcg tab(s) (SYNTHROID) 200 mcg ORAL BEFORE BREAKFAST DAILY [MAR Hold due to Transfer] atorvastatin 80 mg tab(s) (LIPITOR) 80 mg ORAL AT BEDTIME Examination: BP 136/76 Pulse 70 Temp 37.1 ?C (98.7 ?F) (Oral) Resp 18 Ht 193 cm (6' 4) Wt 104.7 kg (230 lb 12.8 oz) SpO2 95% BMI 28.09 kg/m? Temp (24hrs), Av.8 ?C (98.3 ?F), Min:36.6 ?C (97.8 ?F), Max:37.1 ?C (98.7 ?F) General appearance: Resting in the chair at the site of the room, family and visitors present Skin: no rash Head: neg Eyes: anicteric Oropharynx: neg Neck: Negative Back: not examined Lungs: CTA Heart: rrnl, S1 and S2, 3/6 diastolic murmur along left sternal border-in a position lower than I had expected to hear it Abdomen: soft Extremities: Bilateral lower extremity edema - improved, some petechiae - evolving Musculoskeletal: Negative Peripheral pulses: radial pulses palpable Tunneled dialysis catheter and Sylvia catheter in the right chest Exam unchanged as compared with 01/18 other than as edited above. Lab, Microbiology and Imaging Data: Personally reviewed imaging studies, laboratory results, and microbiology results. ASSESSMENT: 62-year-old with multiple medical problems including but not limited to atrial fibrillation, hypertension, and aortic stenosis status post aortic valve replacement in April 2017 with a permanent pacemaker placed shortly thereafter was transferred to our hospital on 12/24 for further evaluation of an acute kidney injury. He initially presented to an outside hospital on 12/19 for further evaluation of a new anemia and renal failure after presenting to his primary care physician with fatigue and shortness of breath. He was treated empirically with prednisone for a glomerular nephritis and transferred. 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 Positive serologies for antineutrophil cytoplasmic antibodies and myeloperoxidase. He is requiring renal replacement therapy. Notable aspects of his workup thus far from infectious disease perspective has included: 2 blood cultures 12/25-no growth to date Bartonella serologies-IgG for Bartonella henselae greater than 1:1024, IgG for Bartonella amato 1:1024 Transesophageal echocardiogram 01/01-2-3+ TR, 3+ AI, thickening of the aorto-mitral curtain and posterior LA wall suggestive of either hematoma or active infection, small mobile echodensity within the RA-vegetation versus thrombus CT chest cardiac 01/07-moderate diffuse leaflet calcification CT brain 01/07-no acute findings CT abdomen and pelvis 01/06-evolving large rectus sheath hematoma CT abdomen pelvis 01/17-rectus hematoma was stable craniocaudad dimensions but slight difference in axial configuration 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 Interestingly, despite his titers he has no obvious epidemiological link to this genus. In speaking with him and in reviewing his records there was no suspicion for endocarditis of the time of his operation in April. He continues to require renal replacement therapy. He is being considered for open heart surgery. RECOMMENDATIONS: Continue doxycycline 100 mg IV every 12 hours Continue ceftriaxone 2 g IV every 24 hours No infectious disease contraindication open heart surgery - at time of surgery please send specimens for endocarditis protocol. At time of surgery suggest removal of his pacemaker in its entirety. Assessment and plan unchanged as compared with 01/18 except as edited above. Monitoring for ongoing therapeutic and potential untoward effect of antibiotic therapy. Following Signature: Rohit Olivas MD Pager: [phone] GASA + ALL Collected: 01/19/2018 Status: F Source: PLANO FOR 12:25 PM [facility] USE ONLY REPOSITORY TYPE CODE TESTS RESULT OUT OF REFERENCE UNITS RANGE LAB PH 7.35-7.45 pH High 7.52 LAB PCO2 34-46 mm Hg pCO2 36 LAB PO2 85-95 mm Hg pO2 High 106 LAB BE mmol/L Base Excess 6 LAB HCO3 22-26 mmol/L Bicarbonate High 29 LAB CO2CT 22.0-28.0 mmol/L CO2 Content High 30 LAB O2HB 95-98 % Oxyhemoglobin, Art. 95 LAB COHB 0-5.0 % Carboxyhemoglobin,A 3.4 rt LAB MHGB 0.4-1.5 % Methemoglobin 0.6 LAB TEMP C Temperature, Body 37.0 LAB PHTC 7.35-7.45 pH, Temp High Corrected 7.52 LAB PCO2T 34-46 mm Hg pCO2, Temp Correct 36 LAB PO2T mm Hg pO2, Temp Corrected 106 LAB NAB 135-146 mmol/L Sodium,Whole Bld Low 133 LAB KWB 3.5-5.0 mmol/L Potassium, Whole Bld 4.4 LAB HGBB 13.0-17.0 g/dL Low Hemoglobin,Total,AC 7.6 L LAB HCTB 39.0-51.0 % Hematocrit, ACL Low 24 LAB IC 1.08-1.30 mmol/L Calcium, Ion, WB 1.17 LAB GLB 60-105 mg/dL Glucose,Whole Bld 85 LAB LACT 0.5-2.2 mmol/L Lactate 0.5 Performed By: #### ALLBG #### [facility] [employer] [address] [place], [place] [address] THERAPY NT Observed: 01/19/2018 Status: COMPLETED Source: [place]ANO 11:59 AM [facility] REPOSITORY HNO ID: [id number] Author: Tianna (Pt) Marianna Service: Physical Therapy Author Type: Physical Therapist Type: Therapy (PT/OT/Speech/Resp) Filed: 01/19/2018 11:59 AM Note Text: PHYSICAL THERAPY MISSED VISIT SERVICE DATE: 01/19/2018 SERVICE TIME: 1158 to 1158 ROOM: [address] Attempted Treatment. Patient not seen due to Surgery. SIGNATURE: Tianna Cabral PT PATIENT NAME: Frank Rivera DATE: January 19, 2018 TIME: 11:59 AM NURSING PROG Observed: 01/19/2018 Status: COMPLETED Source: [place]ANO 11:22 AM [facility] REPOSITORY HNO ID: [id number] Author: Kristina (Rn) DIEUDONNE Connor Service: (none) Author Type: Registered Nurse Type: Nursing Progress Note Filed: 01/19/2018 11:24 AM Note Text: OR notified of patient HANDH 01/19/18 7.6 AND 22.8. Platelet 86 FREE T4 Collected: 01/19/2018 Status: F Source: [place] 10:15 AM [facility] REPOSITORY TYPE CODE TESTS RESULT OUT OF RANGE REFERENCE UNITS LAB FT4 0.9-1.7 ng/dL Free T4 1.1 Performed By: #### FT4, TSH #### [facility] [employer] [address] [place], [place] [address] TSH Collected: 01/19/2018 Status: F Source: [place]ANO 10:15 AM [facility] REPOSITORY TYPE CODE TESTS RESULT OUT OF RANGE REFERENCE UNITS LAB TSH 0.400-5.500 uU/mL High TSH 20.810 Performed By: #### FT4, TSH #### [facility] [address] [place] [id number] CASE MANAGEM Observed: 01/19/2018 Status: COMPLETED Source: [place]ANO 8:46 AM [facility] REPOSITORY HNO ID: [id number] Author: Chelle Ray (Sw) Service: Care Management Author Type: Director Of Safety And Security Type: Care Mgt Progress Note Filed: 01/19/2018 8:47 AM Note Text: CARE MANAGEMENT PROGRESS NOTE SERVICE DATE: 01/19/2018 SERVICE TIME: 8:46 am LOS: 26 days Needs Prior to Discharge: To Be Determined;Facility or Agency Choices;Procedure;Other: See Comment Procedure Needed: CTS 62 yo. [place], [place]. CTS w/u. Family can transport. Mother is an RN. Pt hopeful she can assist at d/c. Is open to HHC if necessary. Provided new HHC list. Ref initiated. Tentatively scheduled for [facility] shruthi w/Dr. Alarcon. Care management will continue to follow for any skilled needs. SIGNATURE: ADRIEL Hernandez PATIENT NAME: Frank Rivera DATE: January 19, 2018 TIME: 8:46 AM PAGER/CONTACT #: [phone] NUTRITION Observed: 01/19/2018 Status: COMPLETED Source: PLANO 8:26 AM [facility] REPOSITORY HNO ID: [id number] Author: Suzanne Palacios (Tech) Service: Nutrition Therapy Author Type: Traffic Control Officer Type: Nutrition Filed: 01/19/2018 8:29 AM Note Text: NUTRITION THERAPY FOLLOW-UP NOTE SERVICE DATE: 01/19/2018 SERVICE TIME: 745am Anthropometrics: Height: 193 cm (6' 4) Current Weight: Weight: 104.7 kg (230 lb 12.8 oz) Body mass index is 28.09 kg/m?. Loss of lean body mass/visual muscle wasting: no Admitting Diagnosis: C3 NEPHROPATHY IRINA Present Diet Order: NPO Is the patient having any pain that is interfering with oral/enteral intake? No Allergies: ALLERGIES Allergen Reactions - Penicillin Hives Reason for Visit: Follow-up: Intervention from 01-13 was met Patient concerns/Issues: patient is NPO today for surgery but has been eating well and taking supplements. Food preferences obtained. Patient states he is doing better. Will continue to monitor intakes and nutritional needs post op. Weight change associated with fluid. Nursing Admission Assessment Malnutrition Score Tool: 0 Plan of Care: Recommendation No problems noted at this time. Will screen again within 7 days Discharge Plan: diet per MD order MNT Billing Type: Routine Care/15 min 1 unit SIGNATURE: Suzanne Palacios DTR PATIENT NAME: Frank Rivera DATE: January 19, 2018 TIME: 8:27 AM PAGER: [phone] PLAN OF CARE Observed: 01/19/2018 Status: COMPLETED Source: PLANO 7:36 AM [facility] REPOSITORY HNO ID: [id number] Author: Jami Tucker (Paige) Leana Service: General Surgery Author Type: Resident Type: Plan of Care Filed: 01/19/2018 7:41 AM Note Text: Frank Rivera [id number] 01/19/2018 7:36 AM 62 year old male with a PMH of atrial fibrillation s/p DCCV (on Apixaban), HTN, Hypothyroidism, aortic stenosis s/p bioprosthetic AVR and RUDY ligation (05/10), sick sinus syndrome s/p PPM 04/2017, history of CVA with residual dysphagia, chronic iron deficiency anemia, history of arid-gr-ptrznt (1995), history of UGIB who was transferred to [facility] for evaluation of worsening IRINA, biopsy of his kidneys showed findings concerning for infection related GN. 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 He is scheduled to undergo redo AVR and TV repair today. We were asked to comment on safety of administering heparin during surgery in the setting of his rectus sheath hematoma. Discussed with Dr. Randle , - Scheduled surgery is an emergent surgery, benefits outweigh the risk of bleeding. In the event of a re bleeding rectus sheath hematoma please consider IR and angioembolization . - Please call with any queries or concerns Jami Reyna MD ? BASIC METABOLIC PANL Collected: 01/19/2018 Status: F Source: PLANO 5:24 AM [facility] REPOSITORY TYPE CODE TESTS RESULT OUT OF REFERENCE UNITS RANGE LAB GLU 74-99 mg/dL Glucose 82 Result Comment: The [place] Diabetes Association (ADA) provides guidance for cutoff values for fasting glucose and random glucose. The ADA defines fasting as no caloric intake for at least 8 hours. Fas ting plasma glucose results between 100 to 125 mg/dL indicate increased risk for diabetes (prediabetes). Fasting plasma glucose results greater than or equal to 126 mg/dL meet the criteria for diagnosis of diabetes. In the absence of unequivocal hyperglycemia, results should be confirmed by repeat testing. In a patient with classic symptoms of hyperglycemia or hyperglycemic crisis, random plasma glucose results greater than or equal to 200 mg/dL meet the criteria for diagnosis of diabetes. Reference: Standards of Medical Care in Diabetes 2016, [place] Diabetes Association. Diabetes Care. 2016.39(Suppl 1). LAB BUN 9-24 mg/dL BUN 17 LAB CRET 0.73-1.22 mg/dL Creatinine High 3.84 LAB NA 136-144 mmol/L Low Sodium 135 LAB K 3.7-5.1 mmol/L Potassium 4.5 LAB CL 97-105 mmol/L Chloride 97 LAB CO2 22-30 mmol/L CO2 28 LAB AGAP 9-18 mmol/L Anion Gap 10 LAB CA 8.5-10.2 mg/dL Low Calcium, Total 8.2 LAB GFRAA eGFR- Amer. 19 LAB GFRNAA . eGFR-All Other Races 16 Result Comment: eGFR (Estimated GFR) Units of measure: mL/min/1.73 meters squared eGFR is derived from the reexpressed MDRD Study equation using the following parameters: serum creatinine, age, gender and race. The creatinine assay has been calibrated to be traceable to IDMS. An eGFR <60 mL/min/1.73m2 for >3 months is consistent with chronic kidney disease. Refer to KDOQI guidelines for clinical interpretation. In patients with unstable renal function, e.g. those with acute kidney injury, the eGFR may not accurately reflect actual GFR. Performed By: #### BMP, MG1, PHOS, CBCDIF #### [facility] [employer] [address] [place], [place] [address] MAGNESIUM Collected: 01/19/2018 Status: F Source: PLANO 5:24 AM [facility] REPOSITORY TYPE CODE TESTS RESULT OUT OF REFERENCE UNITS RANGE LAB MG 1.7-2.3 mg/dL Magnesium 1.9 Performed By: #### BMP, MG1, PHOS, CBCDIF #### [facility] [address] [place], [place] [address] PHOSPHORUS Collected: 01/19/2018 Status: F Source: PLANO 5:24 AM [facility] REPOSITORY TYPE CODE TESTS RESULT OUT OF REFERENCE UNITS RANGE LAB PHOS 2.7-4.8 mg/dL Low Phosphorus 2.6 Performed By: #### BMP, MG1, PHOS, CBCDIF #### [facility] [address] [place], [place] [address] CBC AND DIFFERENTIAL Collected: 01/19/2018 Status: F Source: PLANO 5:24 AM [facility] REPOSITORY TYPE CODE TESTS RESULT OUT OF REFERENCE UNITS RANGE LAB WBC 3.70-11.00 k/uL Low WBC 3.48 LAB RBC 4.20-6.00 m/uL Low RBC 2.36 LAB HGB 13.0-17.0 g/dL Low Hemoglobin 7.6 LAB HCT 39.0-51.0 % Low Hematocrit 22.8 LAB MCV 80.0-100.0 fL MCV 96.6 LAB MCH 26.0-34.0 pG MCH 32.2 LAB MCHC 30.5-36.0 g/dL MCHC 33.3 LAB RDWCV 11.5-15.0 % RDW-CV High 18.5 LAB PLTCT 150-400 k/uL Low Platelet Count 86 Result Comment: No clot detected. LAB MPV 9.0-12.7 fL MPV 11.1 LAB ANEUT % Neut% 52.0 LAB AANEUT 1.45-7.50 k/uL Abs Neut 1.80 LAB ALYMP % Lymph% 34.5 LAB AALYMP 1.00-4.00 k/uL Abs Lymph 1.20 LAB AMONO % Pope% 11.5 LAB AAMONO <0.87 k/uL Abs Pope 0.40 LAB AEOS % Eosin% 1.4 LAB AAEOS <0.46 k/uL Abs Eosin 0.05 LAB ABASO % Baso% 0.6 LAB AABASO <0.11 k/uL Abs Baso <0.03 LAB AUNRBC 0 /100 WBC NRBCs 0.0 LAB ABNRBC <0.01 k/uL Absolute nRBC <0.01 LAB DTYP DTYPE Auto Diff Performed By: #### BMP, MG1, PHOS, CBCDIF #### [facility] [place] [id number] OPERATIVE NO Observed: 01/19/2018 Status: COMPLETED Source: PLANO 12:00 AM [facility] REPOSITORY HNO ID: [id number] Author: Elmer Alarcon Service: Cardiovascular Surgery Author Type: Physician Type: Operative Report Filed: 01/20/2018 2:32 PM Note Text: [facility] - Cardiothoracic Operative Report [address] [place] [address] [place] CLAUDEAM[place] FRANK : 1955 AGE: 62. 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 AV block 1 and permanent pacemaker. 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 AV block 1 and permanent pacemaker. SURGEON: Elmer Alarcon M.D., Ph.D. METER TESTER PRIMARY: Vikas King M.D. No qualified residents available. SURGERY/PROCEDURE: Reoperation second open-heart surgery. Aortic valve with root debridement and replacement with 26-mm aortic homograft. Tricuspid valve repair according to Gretta. Removal of pacemaker and permanent leads and placement of new epicardial leads on RV, LV, and right atrium and implantation of a new pacemaker. ANESTHESIA: General endotracheal. INDICATION FOR SURGERY: The patient is a 62-year-old gentleman, who had aortic valve replacement in May of this year. Immediately, after the procedure, he also got pacemaker. He now shows up with prosthetic valve endocarditis. He has vegetations on the valve and some paravalvular leak. He had no coronary artery disease in May and we have not repeated the cardiac catheterization. He also has moderate tricuspid regurgitation. OPERATIVE FINDINGS: Transesophageal echocardiography in the operating room confirms vegetations on the valve and mild tricuspid regurgitation. On exploration, we found the aortic valve prosthesis severely infected with small vegetations on all 3 leaflets. The valve is partly dehisced and he has several penetration into the annulus posteriorly under the left non-commissure and under the right non-commissure with extension in both direction. 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 The coronary buttons were in good shape. The tricuspid valve display annulus dilatation. The pacer leads do not look infected. OPERATIVE PROCEDURE: The patient was prepped and draped in normal sterile fashion. Re-sternotomy was performed. The right side of the heart and ascending aorta were dissected out. The patient was heparinized and aortic and bicaval cannulation were carried out. Cardiopulmonary bypass was initiated. The ascending aorta was cross- clamped and the heart arrested with antegrade and retrograde cardioplegia. Cardioplegia was repeated every 15 minutes. The aorta was transected above the sinotubular junction. The pathology was found as described. The root was taken apart. Good coronary buttons were harvested. The prosthetic valve was removed and the annulus carefully debrided. After debridement, the annulus was swabbed with chlorhexidine swab. Generous irrigation was performed repeatedly. At this stage, instruments and gloves were changed. The root was reconstructed with a 26-mm aortic homograft of good quality. Annulus sutured with running 4-0 Prolene. Coronary buttons were reconnected in anatomical positions with running 5-0 Prolene. Homograft to aorta anastomosis with running 5-0 Prolene. The pacer leads were pulled out of the right atrium and right ventricle. The pacer pockets was opened and leads and pacemaker removed. The tricuspid valve was repaired with lateral annulus plication according to Gretta with pledgeted 2-0 Ethibond suture. Right atrium was closed with running 4-0 Prolene. Bipolar leads were placed anteriorly on the left ventricle on the diaphragmatic surface of the right ventricle and on the right atrium. These leads were tunneled to a new pocket underneath the left costal margin and new device was connected. The leads had good values. The patient was weaned from cardiopulmonary bypass. The heart was decannulated. Protamine was given. Careful hemostasis was carried out. Mediastinal chest tubes were placed. The sternotomy and old and new pacer pockets were closed in an ordinary fashion. Post- pump echocardiography demonstrated a well-seated aortic homograft and mild residual tricuspid regurgitation. Removed aortic valve and root specimens were divided equally between pathology and microbiology. Dr. Martini opened and closed the chest and performed components of the procedure. I was present from cannulation to decannulation and I or another staff surgeon were immediately available for rest of the procedure. COUNTS: Correct. Elmer Alarcon M.D., Ph.D. GP:[id number] /[id number] cc: [facility] Observed: 01/19/2018 Status: COMPLETED Source: PLANO 12:00 AM [facility] REPOSITORY Letter Text SURGICAL PATHOLOGY Observed: 01/19/2018 Status: F Source: PLANO 12:[address] [facility] REPOSITORY Specimen originated from [facility] Specimen #: [id number] Submitting Physician: ELMER ALARCON ([id number]) FINAL DIAGNOSIS 1. Aortic valve, excision (A) Bovine-pericardium bioprosthetic valve with acute inflammation and focal calcification. See comment. 2. Aorta, partial excision (B) - Elastic-type artery with mild increase of mucopolysaccharide material and adventitial fibrosis. 3. veneer grader, unspecified site, removal (C) - Unremarkable [employer] pacemaker and leads (gross examination only). ERR/BF/kr 01/20/2018 ERR/ka 01/21/2018 COMMENT Microscopic examination of part A shows bovine pericardial bioprosthetic material with polymorphonuclear leukocytes present. Focal calcification is also present. Some pump fibroblasts are noted along the surface of the valve leaflet as well as acute vegetation with neutrophils. Stains for microorganisms show cocci in the acute vegetation as demonstrated in the GMS stain. The Gram stain and PAS stain do not show bacteria. There is no evidence of fungi in the PAS or GMS stains. The Movat stain demonstrates a dense fibrous tissue single layer of bovine pericardial bioprosthetic material. Examination of part B shows an elastic-type artery with adventitial fibrosis as shown in the Movat stain. There is no evidence of abscess formation. Keke Lai ([id number]) (Electronic Signature) SPECIMEN SUBMITTED A: VEGETATION AORTIC VALVE EXPLANT B: AORTA C: PACER AND LEADS CLINICAL DATA ENDOCARDITIS, AORTIC STENOSIS S/P AVR GROSS DESCRIPTION A. Received in formalin designated vegetation aortic valve explant is a portion of bioprosthetic valve which is bovine measuring 3.2 cm in diameter. Vegetations are identified. No calcifications are identified. Pannus formation is not identified. Manager Creative sections are submitted in one cassette. B. Received in formalin designated aorta is a segment of large artery consistent with aorta measuring 8.8 x 2.5 x 0.5 cm. Multiple embedded sutures are present. No lumen is present. A dissection plane is not identified. The adventitial surface is unremarkable. There is no evidence of purulent material or debris on the adventitia surrounding the area of sutures. The wall averages 0.2 cm in thickness. The intimal surface is chang and smooth. Manager Creative sections are submitted in one cassette. C. Received in formalin designated pacer and lead is a pacemaker measuring 4.8 x 4.3 x 1 cm. Inscribed on the one surface is type DDDR Model [id number] [id number] [facility] Structure Vision. On the opposing surface is inscribed Type DDDR Made in [place] Structure Vision. Connected to the pacemaker are two connectors, one is in the RA slot and has inscribed [employer] IS-1 B1 7741/52 cm [id number]. The other connector is in the RV spot and has inscribed [employer] IS-1 B1 7742/59 cm [id number]. There is attached soft tissue to these two pieces. Also received in the same container are two fully insulated leads with screw tips ranging in length from 36.5 to 43 cm. No coils are present. No tissue is attached. No sections are submitted. The specimen is reviewed with Dr. Lai. The specimen is submitted for gross examination only. BF/kr 01/20/2018 Gross examination performed at [facility], [address] [place] [address] Date of Report: 01/21/2018 Date of Procedure: 01/19/2018 Date of Receipt: 01/20/2018 Submitted by: ELMER ALARCON ([id number]) Location: J66 Diagnostic interpretation performed at [facility], [address], [place] [address]. CONSULT PROG Observed: 01/18/2018 Status: COMPLETED Source: PLANO 4:50 PM [facility] REPOSITORY HNO ID: [id number] Author: Janae Cao Service: Cardiac Surgery Author Type: Nurse Practitioner Type: Consult Progress Note Filed: 01/18/2018 10:07 PM Note Text: [facility] CONSULT PROGRESS NOTE Frank Miguel [id number] CONSULTING SERVICE: Cardiothoracic Surgery PRIMARY SERVICE: Cardiology: Clinical TIME CLOCK MECHANIC/PA service PLAN: Events of recurrent right flank pain reviewed. Repeat CT scan: Rectus Hematoma with stable;Redemonstration of bilateral rectus hematoma, common extending over craniocaudad dimension of approximately 10.3 cm on 5:88, similar to prior. ?Axial configuration of hematoma is slightly different than prior, with decreased size of the left-sided component, measuring 4.9 cm in AP dimension on 2:27 (previously 5.0 cm); but slight enlargement of the right-sided component, measuring 4.8 cm in AP dimension on 2:127 (previously 3.1 cm). ?Old post traumatic deformities of several right-sided ribs. ?Mild degenerative change. ?Mild soft tissue edema along pannus. Tunneled dialysis cathter placed today; with extra run of dialysis for potential surgery tomorrow. SUBJECTIVE: INTERVAL HISTORY: 62 yoM with PVE. Clinically stable. Currently. RT flank persist (but improved from yesterday). OBJECTIVE: MEDICATIONS: Current hospital medications: mupirocin 2% 0.5 g nasal ointment (BACTROBAN) 0.5 g NASAL BID Chlorhexidine Gluconate 0.12 % 15 mL (PERIDEX) 15 mL ORAL q 6 H 0.9% NaCl 10 mL 10 mL INTRAVENOUS q 12 H 0.9% NaCl 20 mL 20 mL INTRAVENOUS PRN doxycycline 100 mg in D5W 250 mL Vial-Mate (VIBRAMYCIN) 100 mg INTRAVENOUS q 12 H cefTRIAXone 2 g in D5W 100 mL MB+ (ROCEPHIN) 2 g INTRAVENOUS q 24 H docusate sodium 100 mg cap(s) (COLACE) 100 mg ORAL BID PRN polyethylene glycol 3350 17 g packet (MIRALAX, GLYCOLAX) 17 g ORAL DAILY PRN senna-docusate 8.6-50 mg 1 tablet (SENNA-S) 1 tablet ORAL/FEEDING TUBE BID PRN calcium carbonate 1,000 mg chewable tab(s) (TUMS) 1,000 mg ORAL/FEEDING TUBE BID PRN acetaminophen 650 mg tab(s) (TYLENOL) 650 mg ORAL q 4 H PRN sodium chloride 0.65 % 2 [place] (AYR, OCEAN) 2 [place] EACH NOSTRIL TID PRN fvaaoske-pthf-uxaoa acid chewable tablet (CENTRUM) 1 tablet ORAL DAILY cholecalciferol 3,000 Units tab(s) (VITAMIN D3) 3,000 Units ORAL DAILY cyanocobalamin 500 mcg tab(s) (VITAMIN B-12) 500 mcg ORAL DAILY thiamine 100 mg tab(s) (VITAMIN B1) 100 mg ORAL DAILY diphenhydrAMINE 25 mg (BENADRYL) 25 mg ORAL q 6 H PRN aspirin, enteric coated 81 mg tab(s) 81 mg ORAL DAILY metoprolol tartrate (short acting) 12.5 mg tab(s) (LOPRESSOR) 12.5 mg ORAL BID tamsulosin ER 0.4 mg cap(s) (FLOMAX) 0.4 mg ORAL DAILY pantoprazole DR 40 mg tab(s) (PROTONIX) 40 mg ORAL BID levothyroxine 200 mcg tab(s) (SYNTHROID) 200 mcg ORAL BEFORE BREAKFAST DAILY atorvastatin 80 mg tab(s) (LIPITOR) 80 mg ORAL AT BEDTIME PHYSICAL EXAM: 01/17/18 2213 01/17/18 2231 01/18/18 0304 01/18/18 0500 BP: 141/74 157/76 Pulse: (!) 59 60 61 Resp: 18 18 Temp: 36.9 ?C (98.4 ?F) 36.9 ?C (98.4 ?F) TempSrc: Oral Oral SpO2: 98% 96% Weight: 107.2 kg (236 lb 6.4 oz) Height: PHYSICAL EXAMINATION General: Alert and oriented, no distress, pleasant and cooperative. Rt subclavian tunneled catheter Heart: Regular, normal S1 and S2, no murmurs, rubs, or gallops Lungs: Clear to auscultation bilaterally Abdomen: Benign Extremities: Feet/ankles without edema, posterior tibial pulses full and symmetrical Intake/Output Summary (Last 24 hours) at 01/18/18 1650 Last data filed at 01/17/18 1841 Gross per 24 hour Intake 470 ml Output 0 ml Net 470 ml DATA: Laboratory: Recent Labs 01/18/18 0429 01/17/18 0338 01/16/18 0439 WBC 3.44* 3.24* 3.36* HB 7.7* 6.9* 7.2* HCT 23.6* 21.6* 21.6* PLT 86* 90* 93* NA 133* 135* 133* K 4.9 4.5 4.8 CHLOR 96* 99 96* CO2 26 28 26 BUN 28* 19 30* CREAT 4.93* 3.74* 5.31* GLUC 89 95 85 SIGNATURE: Janae Cao APRN.DIRECTOR OF INDUSTRIAL RELATIONS PAGER: [phone] DATE of SERVICE: 01/18/2018 TIME of SERVICE: 5:00 PM Preop Orders Placed Preop Education: Informed patient (and family) what to expect pre/post operatively. (1) Stressed to patient the importance of pain control for successful recovery: INFORMED OF IMPORTANCE OF GOOD PAIN [id number] for pain medication early when pain level is 2/0-10Informed patient (and family) what to expect pre/post operatively IMPORTANCE OF PAIN [id number]-cgz for pain medication early, take pain medication routinely to have adquate pain control to prevent postop complications ie Pneumonia, Deep Vein Thrombosis, Delayed Wound Healing, Longer Hospital Stay. Informed of benefits of adequate pain control- taking pain medication when pain level is -ask for pain medication; Inform pt may want to ask for pain medication around the clock/routinely on first postop Day on Regular Nursing Floor- thereby promoting recovery;-able to breathe deeply and adequately thus decrease Oxygen requirements of body, Able to walk, get out of bed- thereby decrease recovery time and decreased risk for infection. Explained importance of Deep Breathing/Coughing before and after surgery pain scale, take pain medication routinely to have adquate pain control to prevent postop complications for example, Pneumonia, Deep Vein Thrombosis, Delayed Wound Healing, Longer Hospital Stay. (2) Explained importance of Deep Breathing/Coughing before and after surgery Instructed in breathing exercises-deep breaths 10 times/hour while awake. Pt verbalized understanding and demostrated understanding via return demonstration. (3) Discussed discharged plans-informed patient , a Cardiac Surgery Nurse Practitioner visit is recommended within 3-7 days after being discharged if lived in near [place], [place] area or within [address] [place], [place]. Discussed with Patient (Family) will need to see their PCP and [employer] Mixer following discharged- specific time frames for postop visits for Cardiac Surgery Nurse Practitioner, PCP and [employer]er will be discussed at time of discharged. Patient (Family) Verbalized understanding. OHS: Tentatively Scheduled for OHS A round with Dr. Alarcon. Janae Cao APRN.DIRECTOR OF INDUSTRIAL RELATIONS January 18, 2018 10:06 PM . CONSULT PROG Observed: 01/18/2018 Status: COMPLETED Source: PLANO 4:30 PM [facility] REPOSITORY HNO ID: [id number] Author: Binu Christian Service: Nephrology Author Type: Physician Type: Consult Progress Note Filed: 01/18/2018 4:35 PM Note Text: Renal Consults F/U January 18, 2018 S: No major events. S/p TDC placment. Seen on IHD in anticipation for OHS tomorrow. Current hospital medications: mupirocin 2% 0.5 g nasal ointment (BACTROBAN) 0.5 g NASAL BID Chlorhexidine Gluconate 0.12 % 15 mL (PERIDEX) 15 mL ORAL q 6 H 0.9% NaCl 10 mL 10 mL INTRAVENOUS q 12 H 0.9% NaCl 20 mL 20 mL INTRAVENOUS PRN doxycycline 100 mg in D5W 250 mL Vial-Mate (VIBRAMYCIN) 100 mg INTRAVENOUS q 12 H cefTRIAXone 2 g in D5W 100 mL MB+ (ROCEPHIN) 2 g INTRAVENOUS q 24 H docusate sodium 100 mg cap(s) (COLACE) 100 mg ORAL BID PRN polyethylene glycol 3350 17 g packet (MIRALAX, GLYCOLAX) 17 g ORAL DAILY PRN senna-docusate 8.6-50 mg 1 tablet (SENNA-S) 1 tablet ORAL/FEEDING TUBE BID PRN calcium carbonate 1,000 mg chewable tab(s) (TUMS) 1,000 mg ORAL/FEEDING TUBE BID PRN acetaminophen 650 mg tab(s) (TYLENOL) 650 mg ORAL q 4 H PRN sodium chloride 0.65 % 2 [place] (AYR, OCEAN) 2 [place] EACH NOSTRIL TID PRN qiholdje-bvck-qnclo acid chewable tablet (CENTRUM) 1 tablet ORAL DAILY cholecalciferol 3,000 Units tab(s) (VITAMIN D3) 3,000 Units ORAL DAILY cyanocobalamin 500 mcg tab(s) (VITAMIN B-12) 500 mcg ORAL DAILY thiamine 100 mg tab(s) (VITAMIN B1) 100 mg ORAL DAILY diphenhydrAMINE 25 mg (BENADRYL) 25 mg ORAL q 6 H PRN aspirin, enteric coated 81 mg tab(s) 81 mg ORAL DAILY metoprolol tartrate (short acting) 12.5 mg tab(s) (LOPRESSOR) 12.5 mg ORAL BID tamsulosin ER 0.4 mg cap(s) (FLOMAX) 0.4 mg ORAL DAILY pantoprazole DR 40 mg tab(s) (PROTONIX) 40 mg ORAL BID levothyroxine 200 mcg tab(s) (SYNTHROID) 200 mcg ORAL BEFORE BREAKFAST DAILY atorvastatin 80 mg tab(s) (LIPITOR) 80 mg ORAL AT BEDTIME PHYSICAL EXAM: Patient Vitals for the past 24 hrs: BP Temp Temp src Pulse Resp SpO2 Weight 01/18/18 0500 - - - - - - 107.2 kg (236 lb 6.4 oz) 01/18/18 0304 157/76 36.9 ?C (98.4 ?F) Oral 61 18 96 % - 01/17/18 2231 141/74 36.9 ?C (98.4 ?F) Oral 60 18 98 % - 01/17/18 2213 - - - (!) 59 - - - 01/17/18 1908 143/72 36.6 ?C (97.8 ?F) Oral 60 18 98 % - VS: No data found. I/O: Intake/Output Summary (Last 24 hours) at 01/18/18 1630 Last data filed at 01/17/18 1841 Gross per 24 hour Intake 470 ml Output 0 ml Net 470 ml Intake/Output Summary (Last 24 hours) at 01/18/18 0659 Last data filed at 01/17/18 1841 Gross per 24 hour Intake 991 ml Output 0 ml Net 991 ml General: ?NAD Neck: Trachea midline. No mass palpable Lungs: ?Clear to auscultation, no crackles or wheezing. CV: ?normal, Regular rate and rhythm, + murmur, no rubs. ACCESS: RIJ tunneled. ?No secretions no erythema. Abd: + bowel sounds, no distension. Neuro: no asterixis, no focal deficits. Ext: ?+?edema LABS: Recent Labs 01/18/1842801/17/1833701/16/18438 CREAT 4.93* 3.74* 5.31* BUN 28* 19 30* NA 133* 135* 133* K 4.9 4.5 4.8 CHLOR 96* 99 96* CO2 26 28 26 GLUC 89 95 85 CA 8.1* 8.0* 8.1* MG 1.9 1.9 2.1 P 2.8 2.4* 2.8 ALB 2.2* -- -- WBC 3.44* 3.24* 3.36* HB 7.7* 6.9* 7.2* MCV 95.9 96.9 95.6 PLT 86* 90* 93* IMPRESSION: 62 year old male with PMH including A-fibb, s/p AVR, history of CVA, Fe deficiency anemia and hemolytic anemia presented to [facility] as a transfer from OSH on 12/24. ?Initial presentation to OSH was due to suspected GI bleed. Patient had low Hg however no diagnostic findings on Colonoscopy, EGD or tagged RBC scan. Patient was transferred to [facility] upon worsening of renal function. ? 1. 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 2. Electrolytes ?-Hyponatremia ? 3. Normocytic Anemia ?-Likely multifactorial cause including blood loss, hemolysis as well as acute renal failure ?-No concerning finding on BM bx. Below target. Had already suggested to start Aranesp 60 mcg/weed. ? 5. Volume Overload. Edema likely also exacerbated by hypoalbuminemia Plan for OHS tomorrow. ?seen on IHD today. Thank You for allowing us to participate in his care. I will be following him in the ICU. Binu Christian MD. [facility]. [phone] Staff. Nephrology and Hypertension. January 18, 2018 4:30 PM CONSULT PROG Observed: 01/18/2018 Status: COMPLETED Source: PLANO 3:20 PM [facility] REPOSIT[facility] HNO ID: [id number] Author: Rohit Olivas Service: Infectious Disease Author Type: Physician Type: Consult Progress Note Filed: 01/18/2018 3:23 PM Note Text: INFECTIOUS DISEASE CONSULT SERVICE PROGRESS NOTE Patient Name: Frank Rivera Interval Events: Course reviewed Tunneled catheters today Tentative OR tomorrow In addition to those reviewed and documented in the HPI all other systems reviewed and were negative. MEDICATIONS Medications reviewed. Current hospital medications: mupirocin 2% 0.5 g nasal ointment (BACTROBAN) 0.5 g NASAL BID Chlorhexidine Gluconate 0.12 % 15 mL (PERIDEX) 15 mL ORAL q 6 H 0.9% NaCl 10 mL 10 mL INTRAVENOUS q 12 H 0.9% NaCl 20 mL 20 mL INTRAVENOUS PRN doxycycline 100 mg in D5W 250 mL Vial-Mate (VIBRAMYCIN) 100 mg INTRAVENOUS q 12 H cefTRIAXone 2 g in D5W 100 mL MB+ (ROCEPHIN) 2 g INTRAVENOUS q 24 H docusate sodium 100 mg cap(s) (COLACE) 100 mg ORAL BID PRN polyethylene glycol 3350 17 g packet (MIRALAX, GLYCOLAX) 17 g ORAL DAILY PRN senna-docusate 8.6-50 mg 1 tablet (SENNA-S) 1 tablet ORAL/FEEDING TUBE BID PRN calcium carbonate 1,000 mg chewable tab(s) (TUMS) 1,000 mg ORAL/FEEDING TUBE BID PRN acetaminophen 650 mg tab(s) (TYLENOL) 650 mg ORAL q 4 H PRN sodium chloride 0.65 % 2 [place] (AYR, OCEAN) 2 [place] EACH NOSTRIL TID PRN bbsutrim-xrto-bhlyn acid chewable tablet (CENTRUM) 1 tablet ORAL DAILY cholecalciferol 3,000 Units tab(s) (VITAMIN D3) 3,000 Units ORAL DAILY cyanocobalamin 500 mcg tab(s) (VITAMIN B-12) 500 mcg ORAL DAILY thiamine 100 mg tab(s) (VITAMIN B1) 100 mg ORAL DAILY diphenhydrAMINE 25 mg (BENADRYL) 25 mg ORAL q 6 H PRN aspirin, enteric coated 81 mg tab(s) 81 mg ORAL DAILY metoprolol tartrate (short acting) 12.5 mg tab(s) (LOPRESSOR) 12.5 mg ORAL BID tamsulosin ER 0.4 mg cap(s) (FLOMAX) 0.4 mg ORAL DAILY pantoprazole DR 40 mg tab(s) (PROTONIX) 40 mg ORAL BID levothyroxine 200 mcg tab(s) (SYNTHROID) 200 mcg ORAL BEFORE BREAKFAST DAILY atorvastatin 80 mg tab(s) (LIPITOR) 80 mg ORAL AT BEDTIME Examination: BP 157/76 Pulse 61 Temp 36.9 ?C (98.4 ?F) (Oral) Resp 18 Ht 193 cm (6' 4) Wt 107.2 kg (236 lb 6.4 oz) SpO2 96% BMI 28.78 kg/m? Temp (24hrs), Av.8 ?C (98.2 ?F), Min:36.6 ?C (97.8 ?F), Max:36.9 ?C (98.4 ?F) General appearance: Dialysis session, resting in bed Skin: no rash Head: neg Eyes: anicteric Oropharynx: neg Neck: Negative Back: not examined Lungs: CTA Heart: rrnl, S1 and S2, 3/6 diastolic murmur along left sternal border-in a position lower than I had expected to hear it Abdomen: soft Extremities: Bilateral lower extremity edema - improved, some petechiae - evolving Musculoskeletal: Negative Peripheral pulses: radial pulses palpable Tunneled dialysis catheter and Sylvia catheter in the right chest Exam unchanged as compared with 01/15 other than as edited above. Lab, Microbiology and Imaging Data: Personally reviewed imaging studies, laboratory results, and microbiology results. ASSESSMENT: 62-year-old with multiple medical problems including but not limited to atrial fibrillation, hypertension, and aortic stenosis status post aortic valve replacement in April 2017 with a permanent pacemaker placed shortly thereafter was transferred to our hospital on 12/24 for further evaluation of an acute kidney injury. He initially presented to an outside hospital on 12/19 for further evaluation of a new anemia and renal failure after presenting to his primary care physician with fatigue and shortness of breath. He was treated empirically with prednisone for a glomerular nephritis and transferred. 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 Positive serologies for antineutrophil cytoplasmic antibodies and myeloperoxidase. He is requiring renal replacement therapy. Notable aspects of his workup thus far from infectious disease perspective has included: 2 blood cultures 12/25-no growth to date Bartonella serologies-IgG for Bartonella henselae greater than 1:1024, IgG for Bartonella amato 1:1024 Transesophageal echocardiogram 01/01-2-3+ TR, 3+ AI, thickening of the aorto-mitral curtain and posterior LA wall suggestive of either hematoma or active infection, small mobile echodensity within the RA-vegetation versus thrombus CT chest cardiac 01/07-moderate diffuse leaflet calcification CT brain 01/07-no acute findings CT abdomen and pelvis 01/06-evolving large rectus sheath hematoma CT abdomen pelvis 01/17-rectus hematoma was stable craniocaudad dimensions but slight difference in axial configuration 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 Interestingly, despite his titers he has no obvious epidemiological link to this genus. In speaking with him and in reviewing his records there was no suspicion for endocarditis of the time of his operation in April. He continues to require renal replacement therapy. He is being considered for open heart surgery. RECOMMENDATIONS: Continue doxycycline 100 mg IV every 12 hours Continue ceftriaxone 2 g IV every 24 hours No infectious disease contraindication open heart surgery - at time of surgery please send specimens for endocarditis protocol. At time of surgery suggest removal of his pacemaker in its entirety. Assessment and plan unchanged as compared with 01/15 except as edited above. Monitoring for ongoing therapeutic and potential untoward effect of antibiotic therapy. Following Signature: Rohit Olivas MD Pager: [phone] CONSULT Observed: 01/18/2018 Status: COMPLETED Source: PLANO 2:02 PM [facility] REPOSITORY HNO ID: [id number] Author: Janelle Garcia Service: Vascular Medicine Author Type: Physician Type: Consults Filed: 01/18/2018 6:00 PM Note Text: VASCULAR MEDICINE INITIAL CONSULT SERVICE DATE: 01/18/2018 SERVICE TIME: 2:02 PM Requesting Provider: Dr. Pepe Opinion/advice regarding: Assess risk of AC in the setting of rectus sheath hematoma Subjective CHIEF COMPLAINT: Fatigue and shortness of breath HPI: This is a 62 year old male with a PMH of atrial fibrillation s/p DCCV (on Apixaban), HTN, Hypothyroidism, aortic stenosis s/p bioprosthetic AVR and RUDY ligation (05/10), sick sinus syndrome s/p PPM 04/2017, history of CVA with residual dysphagia, chronic iron deficiency anemia, history of vflm-ij-cimllm (1995), history of UGIB who was transferred to [facility] . He initially presented to an OSH for evaluation of new anemia and renal failure. He underwent renal biopsy (12/26/2017) for worsening IRINA and it was concerning for infection related GN. He also had bartonella henselae IgM. He was later transferred to MICU for volume overload requiring dialysis. On CHANDRAKANT 01/01 showed AV vegetation. 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 He was found to have a low hemoglobin of 5.6, after which he was diagnosed with a spontaneous rectus sheath hematoma which as per imaging yesterday showed stable craniocaudad dimension but there has been a slight difference in axial configuration. General surgery recommended no surgical intervention. Pt denies any history of prior SQ heparin or Enoxaparin administration. He is scheduled to undergo redo aortic valve replacement and TV repair tomorrow and vascular medicine was consulted to evaluate for safety of giving AC (during bypass) in the setting of a rectus sheath hematoma. His hemoglobin decreased to 6.9 yesterday but increased to 7.7 today after receiving 1 U PRBC. PAST MEDICAL HISTORY Diagnosis Date - Aortic stenosis - Atrial fibrillation (HCC) - CAD (coronary artery disease) of bypass graft - CVA, old, dysphagia - Heyd's syndrome (HCC) - History of Min-en-Y gastric bypass - HTN (hypertension) - Hx of sick sinus syndrome PAST SURGICAL HISTORY Procedure Laterality Date - CARPAL TUNNEL - DIALYSIS CATHETER PROCEDURE (W NOTE) 12/27/2017 - GASTRIC BYPASS, MIN-EN-Y 1996 - PERCUT AORTIC VALVE REPLACE 05/07/2017 Family History Problem Relation Age of Onset - Ischemic Heart Disease Mother - other (hypothyroidism) Mother - Ischemic Heart Disease Father - Thyroid Cancer Sister Social History Marital status: Single Spouse name: Years of education: Number of children: Occupational History 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 hydrALAZINE (APRESOLINE) 25 mg tablet Take 25 mg by mouth every 8 hours. ascorbic acid-ascorbate sodium 500 mg chew Take 500 mg by mouth once daily. levothyroxine (LEVOXYL) 200 mcg tablet Take 200 mcg by mouth daily before breakfast. magnesium oxide 200 mg magnesium tab Take 2 tablets by mouth once daily. metoprolol tartrate, short acting, (LOPRESSOR) 25 mg tablet Take 12.5 mg by mouth twice daily. ferrous sulfate 325 mg (65 mg iron) tablet Take 325 mg by mouth daily with breakfast. predniSONE (DELTASONE) 20 mg tablet Take 60 mg by mouth once daily. pantoprazole DR (PROTONIX) 20 mg tablet Take 40 mg by mouth twice daily. cyanocobalamin (VITAMIN B-12) 100 mcg tab Take 500 mcg by mouth once daily. apixaban (ELIQUIS) 5 mg tab(s) Take 5 mg by mouth twice daily. Current Facility-Administered Medications: mupirocin 2% 0.5 g nasal ointment (BACTROBAN) 0.5 g NASAL BID Chlorhexidine Gluconate 0.12 % 15 mL (PERIDEX) 15 mL ORAL q 6 H 0.9% NaCl 10 mL 10 mL INTRAVENOUS q 12 H 0.9% NaCl 20 mL 20 mL INTRAVENOUS PRN doxycycline 100 mg in D5W 250 mL Vial-Mate (VIBRAMYCIN) 100 mg INTRAVENOUS q 12 H cefTRIAXone 2 g in D5W 100 mL MB+ (ROCEPHIN) 2 g INTRAVENOUS q 24 H docusate sodium 100 mg cap(s) (COLACE) 100 mg ORAL BID PRN polyethylene glycol 3350 17 g packet (MIRALAX, GLYCOLAX) 17 g ORAL DAILY PRN senna-docusate 8.6-50 mg 1 tablet (SENNA-S) 1 tablet ORAL/FEEDING TUBE BID PRN calcium carbonate 1,000 mg chewable tab(s) (TUMS) 1,000 mg ORAL/FEEDING TUBE BID PRN acetaminophen 650 mg tab(s) (TYLENOL) 650 mg ORAL q 4 H PRN sodium chloride 0.65 % 2 [place] (AYR, OCEAN) 2 [place] EACH NOSTRIL TID PRN zkutzedq-eyoo-rqxko acid chewable tablet (CENTRUM) 1 tablet ORAL DAILY cholecalciferol 3,000 Units tab(s) (VITAMIN D3) 3,000 Units ORAL DAILY cyanocobalamin 500 mcg tab(s) (VITAMIN B-12) 500 mcg ORAL DAILY thiamine 100 mg tab(s) (VITAMIN B1) 100 mg ORAL DAILY diphenhydrAMINE 25 mg (BENADRYL) 25 mg ORAL q 6 H PRN aspirin, enteric coated 81 mg tab(s) 81 mg ORAL DAILY metoprolol tartrate (short acting) 12.5 mg tab(s) (LOPRESSOR) 12.5 mg ORAL BID tamsulosin ER 0.4 mg cap(s) (FLOMAX) 0.4 mg ORAL DAILY pantoprazole DR 40 mg tab(s) (PROTONIX) 40 mg ORAL BID levothyroxine 200 mcg tab(s) (SYNTHROID) 200 mcg ORAL BEFORE BREAKFAST DAILY atorvastatin 80 mg tab(s) (LIPITOR) 80 mg ORAL AT BEDTIME ALLERGIES Allergen Reactions - Penicillin Hives CANCER SCREENING QUESTIONS: Colon cancer colonoscopy screening done? Yes Objective REVIEW OF SYSTEMS: General: Denies fevers, chills, malaise, or weight changes Respiratory: Denies dyspnea on exertion, cough, wheezing or hemoptysis Cardiovascular: Denies chest pain, lightheadedness, orthopnea, PND GI: Abdominal pain present in his lower quadrants Endocrine: Denies polyuria, polydypsia, heat or cold intolerance Hematology: Denies any history of bleeding or clotting disorders Skin: Denies dry skin, rash or swelling Musculoskeletal: Denies any back pain or muscle aches Neuro: Denies any weakness or sensory deficits. No tingling numbness Psychiatry: Denies any history of anxiety or depression PHYSICAL EXAM: Vital Signs: BP 157/76 Pulse 61 Temp 36.9 ?C (98.4 ?F) (Oral) Resp 18 Ht 193 cm (6' 4) Wt 107.2 kg (236 lb 6.4 oz) SpO2 96% BMI 28.78 kg/m? General Appearance: Alert and oriented x 3. No acute distress HEENT: PERRLA, EOMI Neck: Supple, no JVD, no LAD Respiratory: clear to auscultation bilaterally, no wheezes, ronchi or crackles Cardiovascular: regular rate and rhythm, 2/6 systolic and diastolic murmur over right parasternal area. No rubs or gallops Gastrointestinal: soft, non tender, non distended. Bowel sounds present in all quadrants. Tenderness in RLQ Extremities: No edema, cyanosis or rash. 2+ distal pulses bilaterally in dorsalis pedis. Good capillary refill Skin: No suspicious rashes or lesions DATA: Diagnostic tests reviewed for today's visit: CBC Recent Labs 01/18/1842801/17/1833701/16/18438 WBC 3.44* 3.24* 3.36* RBC 2.46* 2.23* 2.26* HB 7.7* 6.9* 7.2* HCT 23.6* 21.6* 21.6* MCV 95.9 96.9 95.6 MCH 31.3 30.9 31.9 MCHC 32.6 31.9 33.3 RDWCV 18.4* 18.4* 18.2* PLT 86* 90* 93* MPV 10.3 9.7 10.2 NEUTP 51.1 53.1 58.0 LYMPHP 34.9 33.0 26.0 MONOP 12.2 12.7 13.0 EODINP 1.2 0.6 3.0 BASOP 0.6 0.6 0.0 ABSNEUT 1.74 1.70 1.95 ABSMONO 0.42 0.41 0.44 ABSEOSIN 0.04 <0.03 0.10 ABSBASO <0.03 <0.03 0.00 CMP Recent Labs 01/18/1842801/17/1833701/16/18438 NA 133* 135* 133* K 4.9 4.5 4.8 CHLOR 96* 99 96* CO2 26 28 26 GLUC 89 95 85 BUN 28* 19 30* CREAT 4.93* 3.74* 5.31* ALB 2.2* -- -- CA 8.1* 8.0* 8.1* ALKPHOS 162* -- -- TBILI 0.6 -- -- AST 91* -- -- ALT 52 -- -- TPROT 6.1* -- -- MG 1.9 1.9 2.1 Cardiac evaluation Risk Stratification TSH 28.120 01/12/2018 NT Pro BNP 31,933 12/24/2017 Weights Last 12 Encounter Wt Readings: Date: Wt: 12/24/2017 107.2 kg (236 lb 6.4 oz) Imaging CT Abdomen/Pelvis 01/18/2018 Rectus hematoma, with stable craniocaudad dimension but slight difference in axial configuration. This may be from simple maturation / redistribution or from mild new right sided hemorrhage. It extends 10.3cm craniocaudally and measures 4.9cm in AP dimension. CHANDRAKANT 12/25/2017 LV is normal in size. LVSF is normal RV is dilated. RVSF is mildly decreased LA is dilated. Moderate (2-3+) TVR Prosthetic AV with moderately severe aortic valve regurgitation due to paravalvular endocarditis Impression/Recommendations This is a 62 year old male with a PMH of atrial fibrillation s/p DCCV (on Apixaban), HTN, Hypothyroidism, aortic stenosis s/p bioprosthetic AVR and RUDY ligation (05/10), sick sinus syndrome s/p PPM 04/2017, history of CVA with residual dysphagia, chronic iron deficiency anemia, history of nkeu-mg-qaclnq (1995), history of UGIB who was transferred to [facility] for evaluation of worsening IRINA, biopsy of his kidneys showed findings concerning for infection related GN. He was later diagnosed with Bartonella paravalvular prosthetic AV endocarditis and also had a spontaneous rectus sheath hematoma. He is scheduled to undergo redo AVR and TV repair tomorrow. _ Vascular Medicine is consulted to evaluate the safety of administering heparin during surgery in the setting of his rectus sheath hematoma. # Prosthetic AV endocarditis - Scheduled to undergo redo AVR and tricuspid repair tomorrow # Rectus Sheath Hematoma, spontaneous - Unclear etiology - Mild increase in abdominal pain and ? New right sided hemorrhage vs redistribution Recommendations - The patient has an elevated bleeding risk with exposure to heparin, considering his recent need for blood transfusion - With one time intraop exposure to heparin, monitor for any clinical signs of bleeding such as abdominal pain, drop in hemoglobin in which case urgent imaging of his abdomen would be warranted to evaluate extension of his hematoma - Check daily CBC Case to be discussed with Vascular Medicine Staff. Recommendations are not final until addended by Dr. Garcia. SIGNATURE: Tramaine Lu MD PATIENT NAME: Frank Rivera DATE: January 18, 2018 TIME: 2:02 PM PAGER/CONTACT #: [id number] . [facility] STAFF PHYSICIAN NOTE OF PERSONAL INVOLVEMENT IN CARE 62 y/o man with history of aortic stenosis status post bioprosthetic AVR, atrial fibrillation on long-term anticoagulation who was admitted with worsening renal dysfunction. 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 In late November was noted to be anemic and underwent workup to look for GI source of blood loss, which was unrevealing. Transferred here early December; complained of left lower quadrant pain and noted on imaging to have left-sided rectus sheath hematoma. This was stable/improving, then yesterday he noted sensation across the lower quadrant. Repeat imaging showed question of whether the hematoma expanded, versus evolution of the bleed. We are asked to comment on bleeding risk if he gets a bolus of heparin in the OR while on cardiopulmonary bypass. Unfortunately, it is impossible to define this risk. I think benefits of surgery (replacing infected dysfunctional valve) outweigh the bleeding risks, but it is possible he could bleed. Fortunately, heparin is reversed at the end of the case, which means bleeding can be managed. We discussed with the patient the fact that it's difficult to quantify the risks in his particular case. I have reviewed the documentation obtained and documented by Dr. Lu and have reviewed and updated the problem list as appropriate. I have personally performed a gtxw-bs-lizt assessment of the patient and I have discussed the case and management of the patient's care. STAFF PHYSICIAN: Janelle Garcia MD DATE OF SERVICE: January 18, 2018 TIME OF SERVICE: 5:48 PM BRIEF OP NOT Observed: 01/18/2018 Status: COMPLETED Source: [place] 11:59 AM [facility] REPOSITORY O ID: [id number] Author: Dilcia Casiano) Velasco Service: (none) Author Type: Physician Type: Brief Op Note Filed: 01/18/2018 12:00 PM Note Text: BRIEF OPERATIVE / PROCEDURE NOTE LOG ID: [id number] SURGERY/PROCEDURE DATE: 01/18/2018 INCISION/PROCEDURE START TIME: 11:24 AM INCISION CLOSE/PROCEDURE END TIME: 11:55 AM SURGEON(S)/PROCEDURALIST(S) AND METER TESTER PRIMARY(S): Surgeon(s) and Role: * Dilcia Casiano) Juan - Primary No Additional Staff SURGERY/PROCEDURE(S): TDC and Sylvia placement ANESTHESIA: Procedural Sedation FINDINGS: patent R IJV. 27 cm Equistream, tip at RA. 27 cm single lumen Sylvia, tip at cavoatrial junction. Both catheters are ready to use. ESTIMATED BLOOD LOSS: minimal SPECIMENS: None COMPLICATIONS: None PRE-OP/PRE-PROCEDURE DIAGNOSIS: renal failure and endocarditis POST-OP/POST-PROCEDURE DIAGNOSIS: same SIGNATURE: Dilcia Velasco MD PATIENT NAME: rFank Rivera DATE: January 18, 2018 TIME: 11:59 AM PAGER/CONTACT #: [email or web address] Observed: 01/18/2018 Status: COMPLETED Source: [place] 11:58 AM [facility] REPOSITORY HNO ID: [id number] Author: Kristina Rocha Service: Cardiovascular Medicine Author Type: Nurse Practitioner Type: Progress Notes Filed: 01/18/2018 11:59 AM Note Text: [facility]ARD[facility]ULAR [facility]ICINE PROGRESS NOTE Frank Rivera [id number] PRIMARY SERVICE: Hvi Clinical General Agent/Pa HOSPITAL DAY: # 25 INTERVAL HISTORY IR today for TDC the IHD Rhythm: SR Intake/Output Summary (Last 24 hours) at 01/18/18 1158 Last data filed at 01/17/18 1841 Gross per 24 hour Intake 470 ml Output 0 ml Net 470 ml EKG: Most recent reviewed TELE: most recent recordings reviewed CXR: most recent image reviewed, most recent report reviewed Echocardiogram: most recent report reviewed PHYSICAL EXAM: BP 157/76 Pulse 61 Temp 36.9 ?C (98.4 ?F) (Oral) Resp 18 Ht 193 cm (6' 4) Wt 107.2 kg (236 lb 6.4 oz) SpO2 96% BMI 28.78 kg/m? Neuro: AANDO x 3 moves all extremities with no apparent weakness CV: no jugular venous distention RRR without gallop, or rubs. No ectopy. +systolic/diastolic murmer Resp: clear to auscultation bilaterally Abd: +BS x4 Skin: skin color, texture, turgor normal, no rashes or lesions Ext: no edema MEDICATIONS Current hospital medications: mupirocin 2% 0.5 g nasal ointment (BACTROBAN) 0.5 g NASAL BID Chlorhexidine Gluconate 0.12 % 15 mL (PERIDEX) 15 mL ORAL q 6 H doxycycline 100 mg in D5W 250 mL Vial-Mate (VIBRAMYCIN) 100 mg INTRAVENOUS q 12 H cefTRIAXone 2 g in D5W 100 mL MB+ (ROCEPHIN) 2 g INTRAVENOUS q 24 H docusate sodium 100 mg cap(s) (COLACE) 100 mg ORAL BID PRN polyethylene glycol 3350 17 g packet (MIRALAX, GLYCOLAX) 17 g ORAL DAILY PRN senna-docusate 8.6-50 mg 1 tablet (SENNA-S) 1 tablet ORAL/FEEDING TUBE BID PRN calcium carbonate 1,000 mg chewable tab(s) (TUMS) 1,000 mg ORAL/FEEDING TUBE BID PRN acetaminophen 650 mg tab(s) (TYLENOL) 650 mg ORAL q 4 H PRN sodium chloride 0.65 % 2 [place] (AYR, OCEAN) 2 [place] EACH NOSTRIL TID PRN gdaetgyd-ydsb-qzsrh acid chewable tablet (CENTRUM) 1 tablet ORAL DAILY cholecalciferol 3,000 Units tab(s) (VITAMIN D3) 3,000 Units ORAL DAILY cyanocobalamin 500 mcg tab(s) (VITAMIN B-12) 500 mcg ORAL DAILY thiamine 100 mg tab(s) (VITAMIN B1) 100 mg ORAL DAILY diphenhydrAMINE 25 mg (BENADRYL) 25 mg ORAL q 6 H PRN aspirin, enteric coated 81 mg tab(s) 81 mg ORAL DAILY metoprolol tartrate (short acting) 12.5 mg tab(s) (LOPRESSOR) 12.5 mg ORAL BID tamsulosin ER 0.4 mg cap(s) (FLOMAX) 0.4 mg ORAL DAILY pantoprazole DR 40 mg tab(s) (PROTONIX) 40 mg ORAL BID levothyroxine 200 mcg tab(s) (SYNTHROID) 200 mcg ORAL BEFORE BREAKFAST DAILY atorvastatin 80 mg tab(s) (LIPITOR) 80 mg ORAL AT BEDTIME DATA Recent Labs 01/18/1842801/17/18 0338 01/16/18 0439 WBC 3.44* 3.24* 3.36* HB 7.7* 6.9* 7.2* HCT 23.6* 21.6* 21.6* PLT 86* 90* 93* Recent Labs 01/18/1842801/17/18 0338 01/16/18 0439 NA 133* 135* 133* K 4.9 4.5 4.8 CO2 26 28 26 BUN 28* 19 30* CREAT 4.93* 3.74* 5.31* GLUC 89 95 85 MG 1.9 1.9 2.1 ASSESSMENT AND PLAN Presentation/Indication for admission/procedure: C3 NEPHROPATHY;IRINA Admit date: 12/24/2017 LVEF: 60 RVEF: Low Nl Cards: [facility] Cath: PMH/PSH: Atrial fibrillation on apixaban 5mg BID on metoprolol 12.5mg BID HTN Hypothyroidism on levothyroxine 200mcg qdaily Atrial Fibrillation s/p PPM and DCCV in 04/2017 Aortic Stenosis s/p bioprosthetic AVR (27mm [employer]. Richi Trifecta pericardial valve) and RUDY ligation 05/07/17 Sick sinus syndrome s/p pacemaker placement 05/13/17 Hx of CVA with residual dysphagia Chronic Iron Deficiency Anemia (also B12 deficient) Hx of Min-En-Y bypass in 1995 Hx of Upper GI bleeds (1997, 2014, 2015) Procedure/OR performed (including complications): Echocardiogram CHANDRAKANT CT C/A/P CT brain Brief Hospital Course/Narrative: Mr. Frank Rivera is a 62y/o gentleman with atrial fibrillation and SSS s/p PPM, HTN, hypothyroidism, aortic stenosis s/p AVR and RUDY, history of Min-en-Y bypass c/b recurrent GIB, ADRIANNE, B12 deficiency, who presents to [facility] on 12/24/17 with fatigue and shortness of breath who was transferred from OSH with IRINA and renal biopsy concerning for C3 nephropathy. MICU transfer to initiate dialysis secondary to volume overload. CHANDRAKANT 01/01 showed AV vegitation. Transfered to [facility] 01/13 Issues to communicate: - Bartonella positive, on IV doxycycline and ceftriaxone - still not producing urine, IHD 01/18 - Hgb, tx if < 7. transfuse 01/17 for 6.9/21.6. Does not need colon/EGD. Testing previously done and has a negative tag study. LDH 598 - CTS - OR 01/19 Neuro cleared pt for OHS TDC in IR 01/18 Problem Subacute Bacterial Endocarditis History: Bartonella henselae Assessment: On rocephin and doxy Plan: Continue ABx per ID, CTS for OHS. Anemia History: Hx FE, B12 deficiencies, UGI bleeds, Heyde's syndrome Assessment: BMBx - Normocytic anemia with anisocytosis and no increased schistocytes or spherocytes. Thrombocytopenia. Iron studies suggest anmeia of chronic disease Plan: Monitor. Transfuse for Hgb <7, 01/17. No EGD/Colon - testing previously done. Repeat LDH 598 Pancytopenia (Hcc) History: Hx anemia, FE, B12 Assessment: BMBX Normocytic anemia with anisocytosis Plan: Hematology signed off. Atrial Fibrillation (Hcc) History: Hx post op AF Assessment: S/P DCC 06/07. In SR Plan: Continue Beta Magdy. Irina (Acute Kidney Injury) (Hcc) History: IRINA. No Hx CKD Assessment: C3 nephropathy Plan: IHD per nephrology. TDC in IR 01/18 Htn (Hypertension) History: on hydralazine, lopressor at home Assessment: Currently well controlled Plan: Continue lopressor. Rectus Sheath Hematoma History: Pt with hematoma found on CT. Had renal Bx at OSH? Assessment: Stable by repeat CT Plan: Monitor. Cva, Old, Dysphagia History: Remote Assessment: Mild dysphagia Plan: Neuro cleared pt for OHS. Malnutrition of Moderate Degree (Hcc) History: Per nutrition Assessment: In the context of Acute Illness or Injury based on: Insufficient Energy Intake: <75% for >7 days Subcutaneous Fat Loss: Mild Loss Muscle Loss Mild Loss Plan: Intervention: 1) Continue Regular diet 2) Beneprotein TID (75kcal, 18g ptn) 3) Continue Bariatric Vitamin regimen 4) Maintain normal bowel regimen 5) Please document accurate intakes of meals and supplements to further assess nutritional status. Thank you. Goals: pt to meet > 75% of est needs prior to d/c. Case discussed with Gracy Rodriguez M.D. Kristina Rocha Cardiovascular Medicine Nurse Practitioner Pager [phone] (please see below for after hours communication) 01/18/2018 11:58 AM For communication after 5 pm on weekdays and after 12 pm on weekends, please page the following: - Clinical Cardiology patients on all floors: page [phone] - Other Cardiology patients on J5 and J6: page [phone] - Other Cardiology patients on J7 and J8: page [phone] IR SYLVIA CATHETER Observed: 01/18/2018 Status: F Source: [place] 11:55 AM [facility] REPOSITORY * * *Final Report* * * DATE OF EXAM: Jan 18 2018 11:55AM [facility] [id number] - IR SYLVIA CATHETER / PROCEDURE REASON: Endocarditis * * * * Physician Interpretation * * * * PROCEDURE: Tunneled central venous catheter placement and tunneled dialysis catheter placement Procedural Personnel Attending(s): Dilcia Velasco M.D. Installation Engineer(s): Fellow(s): None Resident(s): None Advanced practice provider(s): None Medical Student(s): None Pre-procedure diagnosis: Renal failure and endocarditis Post-procedure diagnosis: Same Indication(s): Performance of hemodialysis Additional clinical history: Sylvia for administration of antibiotics PROCEDURE DETAILS: Pre-procedure History and imaging of central venous access reviewed (QCDR): Yes Consent: Risks, benefits, treatment options, potential complications and personnel to be involved were discussed (including the risks of radiation exposure, contrast and anesthesia administration, and any equipment needed for the procedure to ensure best possible outcome) with the patient and all questions were answered and consent was obtained prior to procedure. Medication reconciliation: The patient's medications and allergies were reviewed in the electronic medical record and reconciled to the proposed procedure/treatment. Haley-procedure discussion: The appropriate elements of the pre-procedure discussion, safety check list and sign-out were performed. Time out: A time out was performed immediately prior to procedure start with the nursing and interventional team, correctly identifying the name, date of , procedure, anatomy (including marking of site and side if applicable), patient position, procedure consent form, relevant diagnostic and radiology test results, antibiotic administration if applicable, safety precautions, and procedure-specific equipment needs. Start of procedure: 11:24 AM End of procedure: 11:55 AM Antibiotics: None Antibiotic infusion start time: N/A Prophylactic antibiotic administered: Within 1 hour of procedure start time or 2 hours for vancomycin or fluoroquinolones Preparation (MIPS) Patient position: Supine The site was prepared and draped using all elements of maximal sterile barrier technique including sterile gloves, sterile gown, cap, mask, large sterile sheet, sterile ultrasound probe cover, hand hygiene and cutaneous antisepsis with 2% chlorhexidine. Medical reason for site preparation exception (MIPS): Not applicable Anesthesia/sedation Level of anesthesia/sedation: Moderate sedation (conscious sedation) Anesthesia Medications: Versed and Fentanyl Intra-service time (monitoring for moderate sedation): 45 minutes Patient monitoring: I personally supervised and directed an independent trained observer who assisted in monitoring the patient?s level of consciousness and physiological status throughout the procedure. Local anesthesia: 2 % lidocaine Access The vessel was sonographically evaluated and judged appropriate for access. Real time ultrasound was used to visualize needle entry into the vessel and a permanent image was stored. Vein accessed: Right Internal jugular vein Access vein ultrasound findings: Patent Access technique: 4F micropuncture set Venography Indication for venography: Not performed Catheter tip position for venography: Not applicable Venous segment imaged: Not applicable Findings: Not applicable Sylvia catheter placement An incision was made in the upper chest and the catheter was tunneled subcutaneously to the venous access site. The catheter was trimmed to appropriate length and advanced via a peel-away sheath into the vein under fluoroscopic guidance. Catheter tip location was fluoroscopically verified and a permanent image was stored. Catheter placed: 5 F Bard [address] single lumen CT injectable Sylvia catheter Catheter trim length: 27 cm Catheter tip position: Cavoatrial junction Unique Device Identifier (MEGAN): Not available Catheter flush: Normal saline Dialysis catheter placement An incision was made in the upper chest and the catheter was tunneled subcutaneously to the venous access site. The catheter was not trimmed and advanced via a peel-away sheath into the vein under fluoroscopic guidance. Catheter tip location was fluoroscopically verified and a permanent image was stored. Catheter placed: 27 cm 14.5 F Equistream hemodialysis catheter Catheter trim length: Not applicable Catheter tip position: Right atrium Unique Device Identifier (MEGAN): Not available Catheter flush: Citrate Closure Access site closure technique: Tissue adhesive Catheter securement technique: 2-0 Prolene purse string suture Sterile dressing(s) applied. The [facility] Central Line Insertion checklist, attached to the Central Line-Associated Bloodstream Infection Prevention Policy, was utilized during this procedure. Contrast Contrast agent: 0 Contrast volume: 0 mL Route of Administration: Venous system Radiation Dose Fluoroscopy time: 0:30 minutes Reference air kerma: 9.3 mGy Kerma area product: 2701.0 mGy*cm2 Radiation dose exceed 5 Gy: No If radiation dose exceeded 5 Gy, was counseling and instructional brochure provided: N/A Additional Details Additional description of procedure: Indwelling right IJ trialysis catheter was removed intact with gentle traction. Additional findings: None Equipment details: None Number and Type of Removed Specimens: 0, Not applicable Estimated blood loss: Less than 10 mL Standardized report: [id number] Result The patient tolerated the procedure well. The patient was comfortable and was transferred to the patient's previous bed in stable condition. Complications: There were no significant complications and no other complications during the procedure. Attestation I attest that the procedure was performed by the attending radiologist, without an outreach assistant. The attending radiologist performed the following procedural activities: Entire procedure I reviewed the stored images and agree with the report as written. IMPRESSION: TECHNICALLY SUCCESSFUL INSERTION OF RIGHT-SIDED SUPRADIAPHRAGMATIC SINGLE-LUMEN TUNNELED SYLVIA CATHETER, WITH TIP IN THE EXPECTED LOCATION OF THE CAVOATRIAL JUNCTION. THE CATHETER MAY BE USED IMMEDIATELY. TECHNICALLY SUCCESSFUL INSERTION OF RIGHT-SIDED SUPRADIAPHRAGMATIC DUAL-LUMEN TUNNELED DIALYSIS CATHETER, WITH TIP IN THE EXPECTED LOCATION OF THE RIGHT ATRIUM. THE CATHETER MAY BE USED IMMEDIATELY. REMOVAL OF THE NON-TUNNELED TRIALYSIS CATHETER. Loss Prevention Operations Manager: IDA Transcribe Date/Time: Jan 18 2018 1:43P Dictated by : DILCIA VELASCO MD This examination was interpreted and the report reviewed and electronically signed by: DILCIA VELASCO MD on Jan 18 2018 1:47PM EST [id number] IR TUNNELLED DIALYSIS Observed: 01/18/2018 Status: F Source: [place] CAT[facility]TER 11:55 AM [facility] REPOSITORY * * *Final Report* * * DATE OF EXAM: Jan 18 2018 11:55AM [facility] [id number] - IR TUNNELLED DIALYSIS CATHETER / PROCEDURE REASON: Renal failure * * * * Physician Interpretation * * * * PROCEDURE: Tunneled central venous catheter placement and tunneled dialysis catheter placement Procedural Personnel Attending(s): Dilcia Velasco M.D. Installation Engineer(s): Fellow(s): None Resident(s): None Advanced practice provider(s): None Medical Student(s): None Pre-procedure diagnosis: Renal failure and endocarditis Post-procedure diagnosis: Same Indication(s): Performance of hemodialysis Additional clinical history: Sylvia for administration of antibiotics PROCEDURE DETAILS: Pre-procedure History and imaging of central venous access reviewed (QCDR): Yes Consent: Risks, benefits, treatment options, potential complications and personnel to be involved were discussed (including the risks of radiation exposure, contrast and anesthesia administration, and any equipment needed for the procedure to ensure best possible outcome) with the patient and all questions were answered and consent was obtained prior to procedure. Medication reconciliation: The patient's medications and allergies were reviewed in the electronic medical record and reconciled to the proposed procedure/treatment. Haley-procedure discussion: The appropriate elements of the pre-procedure discussion, safety check list and sign-out were performed. Time out: A time out was performed immediately prior to procedure start with the nursing and interventional team, correctly identifying the name, date of , procedure, anatomy (including marking of site and side if applicable), patient position, procedure consent form, relevant diagnostic and radiology test results, antibiotic administration if applicable, safety precautions, and procedure-specific equipment needs. Start of procedure: 11:24 AM End of procedure: 11:55 AM Antibiotics: None Antibiotic infusion start time: N/A Prophylactic antibiotic administered: Within 1 hour of procedure start time or 2 hours for vancomycin or fluoroquinolones Preparation (MIPS) Patient position: Supine The site was prepared and draped using all elements of maximal sterile barrier technique including sterile gloves, sterile gown, cap, mask, large sterile sheet, sterile ultrasound probe cover, hand hygiene and cutaneous antisepsis with 2% chlorhexidine. Medical reason for site preparation exception (MIPS): Not applicable Anesthesia/sedation Level of anesthesia/sedation: Moderate sedation (conscious sedation) Anesthesia Medications: Versed and Fentanyl Intra-service time (monitoring for moderate sedation): 45 minutes Patient monitoring: I personally supervised and directed an independent trained observer who assisted in monitoring the patient?s level of consciousness and physiological status throughout the procedure. Local anesthesia: 2 % lidocaine Access The vessel was sonographically evaluated and judged appropriate for access. Real time ultrasound was used to visualize needle entry into the vessel and a permanent image was stored. Vein accessed: Right Internal jugular vein Access vein ultrasound findings: Patent Access technique: 4F micropuncture set Venography Indication for venography: Not performed Catheter tip position for venography: Not applicable Venous segment imaged: Not applicable Findings: Not applicable Sylvia catheter placement An incision was made in the upper chest and the catheter was tunneled subcutaneously to the venous access site. The catheter was trimmed to appropriate length and advanced via a peel-away sheath into the vein under fluoroscopic guidance. Catheter tip location was fluoroscopically verified and a permanent image was stored. Catheter placed: 5 F Bard Power[address] single lumen CT injectable Sylvia catheter Catheter trim length: 27 cm Catheter tip position: Cavoatrial junction Unique Device Identifier (MEGAN): Not available Catheter flush: Normal saline Dialysis catheter placement An incision was made in the upper chest and the catheter was tunneled subcutaneously to the venous access site. The catheter was not trimmed and advanced via a peel-away sheath into the vein under fluoroscopic guidance. Catheter tip location was fluoroscopically verified and a permanent image was stored. Catheter placed: 27 cm 14.5 F Equistream hemodialysis catheter Catheter trim length: Not applicable Catheter tip position: Right atrium Unique Device Identifier (MEGAN): Not available Catheter flush: Citrate Closure Access site closure technique: Tissue adhesive Catheter securement technique: 2-0 Prolene purse string suture Sterile dressing(s) applied. The [facility] Central Line Insertion checklist, attached to the Central Line-Associated Bloodstream Infection Prevention Policy, was utilized during this procedure. Contrast Contrast agent: 0 Contrast volume: 0 mL Route of Administration: Venous system Radiation Dose Fluoroscopy time: 0:30 minutes Reference air kerma: 9.3 mGy Kerma area product: 2701.0 mGy*cm2 Radiation dose exceed 5 Gy: No If radiation dose exceeded 5 Gy, was counseling and instructional brochure provided: N/A Additional Details Additional description of procedure: Indwelling right IJ trialysis catheter was removed intact with gentle traction. Additional findings: None Equipment details: None Number and Type of Removed Specimens: 0, Not applicable Estimated blood loss: Less than 10 mL Standardized report: [id number]_Tunneled1.3 Result The patient tolerated the procedure well. The patient was comfortable and was transferred to the patient's previous bed in stable condition. Complications: There were no significant complications and no other complications during the procedure. Attestation I attest that the procedure was performed by the attending radiologist, without an outreach assistant. The attending radiologist performed the following procedural activities: Entire procedure I reviewed the stored images and agree with the report as written. IMPRESSION: TECHNICALLY SUCCESSFUL INSERTION OF RIGHT-SIDED SUPRADIAPHRAGMATIC SINGLE-LUMEN TUNNELED SYLVIA CATHETER, WITH TIP IN THE EXPECTED LOCATION OF THE CAVOATRIAL JUNCTION. THE CATHETER MAY BE USED IMMEDIATELY. TECHNICALLY SUCCESSFUL INSERTION OF RIGHT-SIDED SUPRADIAPHRAGMATIC DUAL-LUMEN TUNNELED DIALYSIS CATHETER, WITH TIP IN THE EXPECTED LOCATION OF THE RIGHT ATRIUM. THE CATHETER MAY BE USED IMMEDIATELY. REMOVAL OF THE NON-TUNNELED TRIALYSIS CATHETER. Loss Prevention Operations Manager: PSCB Transcribe Date/Time: Jan 18 2018 1:43P Dictated by : DILCIA VELASCO MD This examination was interpreted and the report reviewed and electronically signed by: DILCIA VELASCO MD on Jan 18 2018 1:47PM EST [id number] THERAPY NT Observed: 01/18/2018 Status: COMPLETED Source: [place] 11:00 AM [facility] REPOSITORY HNO ID: [id number] Author: Tianna Cabral Service: Physical Therapy Author Type: Physical Therapist Type: Therapy (PT/OT/Speech/Resp) Filed: 01/18/2018 1:20 PM Note Text: PHYSICAL THERAPY MISSED VISIT SERVICE DATE: 01/18/2018 SERVICE TIME: 1100 to 1100 ROOM: [place] [address] Attempted Treatment. Patient not seen due to Test/Procedure. SIGNATURE: Tianna Cabral PT PATIENT NAME: Frank Rivera DATE: January 18, 2018 TIME: 1:20 PM PT ED Observed: 01/18/2018 Status: COMPLETED Source: [place] 10:52 AM [facility] REPOSITORY HNO ID: [id number] Author: Luzma MarieRn) DIEUDONNE Álvarez Service: (none) Author Type: Registered Nurse Type: Patient Education Filed: 01/18/2018 10:53 AM Note Text: AMBULATORY PATIENT EDUCATION TOPIC: Survival Skills: HEALTH PROMOTION: Complication prevention READINESS TO LEARN COGNITIVE ABILITY: Alert and oriented MOTIVATION TO LEARN: Interested FAMILY SUPPORT: Unable to assess - Family not present INSTRUCTION PROVIDED TO: Patient PATIENT LEARNS BEST BY: Multiple Methods FACTORS AFFECTING LEARNING: None PHYSICAL LIMITATIONS AFFECTING LEARNING: None LEARNING RESPONSE DIAGNOSIS: Endocarditis METHOD OF INSTRUCTION: Individual instruction Written instruction - handouts Verbal instruction PATIENT / FAMILY RESPONSE: Information received as demonstrated by interest and questions FOLLOW-UP PLAN: Complete - No need for follow-up SUPPLEMENTAL MATERIAL: None REFERRAL (RECOMMENDATION): None Electronically Signed By: Luzma Álvarez RN In Department: [id number] CASE MANAGEM Observed: 01/18/2018 Status: COMPLETED Source: [place] 9:50 AM [facility] REPOSITORY HNO ID: [id number] Author: Chelle Ray (Sw) Service: Care Management Author Type: Director Of Safety And Security Type: Care Mgt Progress Note Filed: 01/18/2018 9:51 AM Note Text: CARE MANAGEMENT PROGRESS NOTE SERVICE DATE: 01/18/2018 SERVICE TIME: 9:45 am LOS: 25 days Needs Prior to Discharge: To Be Determined;Facility or Agency Choices;Procedure;Other: See Comment Procedure Needed: CTS 62 yo. [place], [place]. CTS w/u. Continue ABx per ID, CTS consult for [facility]. Family can transport. Mother is an RN. Pt hopeful she can assist at d/c, but is open to HHC if necessary. Provided new HHC list. Ref initiated. SIGNATURE: ADIREL Hernandez PATIENT NAME: Frank Rivera DATE: January 18, 2018 TIME: 9:50 AM PAGER/CONTACT #: [phone] BASIC METABOLIC PANL Collected: 01/18/2018 Status: F Source: [place] 4:29 AM [facility] REPOSITORY TYPE CODE TESTS RESULT OUT OF REFERENCE UNITS RANGE LAB GLU 74-99 mg/dL Glucose 89 Result Comment: The [place] Diabetes Association (ADA) provides guidance for cutoff values for fasting glucose and random glucose. The ADA defines fasting as no caloric intake for at least 8 hours. Fas ting plasma glucose results between 100 to 125 mg/dL indicate increased risk for diabetes (prediabetes). Fasting plasma glucose results greater than or equal to 126 mg/dL meet the criteria for diagnosis of diabetes. In the absence of unequivocal hyperglycemia, results should be confirmed by repeat testing. In a patient with classic symptoms of hyperglycemia or hyperglycemic crisis, random plasma glucose results greater than or equal to 200 mg/dL meet the criteria for diagnosis of diabetes. Reference: Standards of Medical Care in Diabetes 2016, [place] Diabetes Association. Diabetes Care. 2016.39(Suppl 1). LAB BUN 9-24 mg/dL BUN High 28 LAB CRET 0.73-1.22 mg/dL Creatinine High 4.93 LAB NA 136-144 mmol/L Low Sodium 133 LAB K 3.7-5.1 mmol/L Potassium 4.9 LAB CL 97-105 mmol/L Low Chloride 96 LAB CO2 22-30 mmol/L CO2 26 LAB AGAP 9-18 mmol/L Anion Gap 11 LAB CA 8.5-10.2 mg/dL Low Calcium, Total 8.1 LAB GFRAA eGFR- Amer. 15 LAB GFRNAA . eGFR-All Other Races 12 Result Comment: eGFR (Estimated GFR) Units of measure: mL/min/1.73 meters squared eGFR is derived from the reexpressed MDRD Study equation using the following parameters: serum creatinine, age, gender and race. The creatinine assay has been calibrated to be traceable to IDMS. An eGFR <60 mL/min/1.73m2 for >3 months is consistent with chronic kidney disease. Refer to KDOQI guidelines for clinical interpretation. In patients with unstable renal function, e.g. those with acute kidney injury, the eGFR may not accurately reflect actual GFR. Performed By: #### BMP, MG1, PHOS, CBCDIF #### [facility] [employer] [address] [place] [address] MAGNESIUM Collected: 01/18/2018 Status: F Source: [place] 4:29 AM [facility] REPOSITORY TYPE CODE TESTS RESULT OUT OF REFERENCE UNITS RANGE LAB MG 1.7-2.3 mg/dL Magnesium 1.9 Performed By: #### BMP, MG1, PHOS, CBCDIF #### [facility] [employer] [address] [place] [address] PHOSPHORUS Collected: 01/18/2018 Status: F Source: [place] 4:29 AM [facility] REPOSITORY TYPE CODE TESTS RESULT OUT OF REFERENCE UNITS RANGE LAB PHOS 2.7-4.8 mg/dL Phosphorus 2.8 Performed By: #### BMP, MG1, PHOS, CBCDIF #### [facility] [employer] [address] [place] [address] CBC AND DIFFERENTIAL Collected: 01/18/2018 Status: F Source: [place] 4:29 AM [facility] REPOSITORY TYPE CODE TESTS RESULT OUT OF REFERENCE UNITS RANGE LAB WBC 3.70-11.00 k/uL Low WBC 3.44 LAB RBC 4.20-6.00 m/uL Low RBC 2.46 LAB HGB 13.0-17.0 g/dL Low Hemoglobin 7.7 LAB HCT 39.0-51.0 % Low Hematocrit 23.6 LAB MCV 80.0-100.0 fL MCV 95.9 LAB MCH 26.0-34.0 pG MCH 31.3 LAB MCHC 30.5-36.0 g/dL MCHC 32.6 LAB RDWCV 11.5-15.0 % RDW-CV High 18.4 LAB PLTCT 150-400 k/uL Low Platelet Count 86 Result Comment: No clot detected. LAB MPV 9.0-12.7 fL MPV 10.3 LAB ANEUT % Neut% 51.1 LAB AANEUT 1.45-7.50 k/uL Abs Neut 1.74 LAB ALYMP % Lymph% 34.9 LAB AALYMP 1.00-4.00 k/uL Abs Lymph 1.20 LAB AMONO % Pope% 12.2 LAB AAMONO <0.87 k/uL Abs Pope 0.42 LAB AEOS % Eosin% 1.2 LAB AAEOS <0.46 k/uL Abs Eosin 0.04 LAB ABASO % Baso% 0.6 LAB AABASO <0.11 k/uL Abs Baso <0.03 LAB AUNRBC 0 /100 WBC NRBCs 0.0 LAB ABNRBC <0.01 k/uL Absolute nRBC <0.01 LAB DTYP DTYPE Auto Diff Performed By: #### BMP, MG1, PHOS, CBCDIF #### [facility] [address] [place], [place] [address] HEPATIC FUNCTN PANEL Collected: 01/18/2018 Status: F Source: [place] 4:29 AM [facility] REPOSITORY TYPE CODE TESTS RESULT OUT OF REFERENCE UNITS RANGE LAB ALB 3.9-4.9 g/dL Low Albumin 2.2 LAB TBIL 0.2-1.3 mg/dL Bilirubin, Total 0.6 LAB CBIL <0.2 mg/dL High Bilirubin,Conjuga 0.2 juan LAB ALKP 38-113 U/L Alkaline High Phosphatase 162 LAB AST 14-40 U/L AST High 91 LAB ALT 10-54 U/L ALT 52 LAB TP 6.3-8.0 g/dL Low Protein, Total 6.1 Performed By: #### HFP #### [facility] [address] [place], [place] [address] PROGRESS Observed: 01/17/2018 Status: COMPLETED Source: [place] 8:15 PM [facility] REPOSITORY HNO ID: [id number] Author: Stephanie Arthur Ct Service: (none) Author Type: (none) Type: Progress Notes Filed: 01/17/2018 8:16 PM Note Text: Radiology Service Progress Note PATIENT NAME: Frank Rivera DATE OF SERVICE: January 17, 2018 TIME: 8:15 PM PATIENT IDENTITY VERIFICATION COMPLETED USING TWO (2) METHODS: Patient confirmed name verbally and ID band matches. and Patient confirmed name verbally. PATIENT GENDER DATA: Male PATIENT RELEVANT IMPLANT DATA REVIEWED: Yes RADIOLOGY DEPARTMENT: CT; Exam(s) Completed: Abdomen/Pelvis PERIPHERAL IV DATA: Not applicable SIGNED BY: Stephanie Arthur Ct January 17, 2018 8:[address] ABD/PEL WO IVCON Observed: 01/17/2018 Status: F Source: [place] 8:15 PM [facility] REPOSITORY * * *Final Report* * * DATE OF EXAM: Jan 17 2018 8:15PM [facility] 0531 - CT ABD/PEL WO IVCON / PROCEDURE REASON: Pain, pelvis * * * * Physician Interpretation * * * * EXAMINATION: CT ABDOMEN AND PELVIS WITHOUT IV CONTRAST CLINICAL HISTORY: Flank pain and anemia TECHNIQUE: Non-IV contrast imaging of the abdomen and pelvis was performed using standard technique, scanning from just above the dome of the diaphragm to the symphysis pubis. Unenhanced imaging is limited for the evaluation of some intra-abdominal and pelvic pathology. MQ: [id number]_3 Contrast: IV: None Oral: None CT Radiation dose: Integrated Dose-length product (DLP) for this visit = 1232 mGy*cm. CT Dose Reduction Employed: Automated exposure control (AEC) COMPARISON: 01/06/2018 RESULT: Abdomen / Pelvis: Liver: Unremarkable. Biliary: Gallbladder present with tiny cholelithiasis. Spleen: No splenomegaly. Pancreas: Unremarkable. Adrenals: No mass. Kidneys: Punctate 0.2 cm nonobstructing calculus in left interpolar region on 2:59. No right-sided radiopaque calculus. No hydronephrosis. GI Tract: No bowel dilation. Enteric staple line in left upper quadrant. Lymph Nodes: Stable paraceliac lymph node measures 2.6 x 2.7 cm on 2:42. Mesentery/peritoneum: No ascites. Retroperitoneum: No mass. Vasculature: Atherosclerotic aortoiliac vascular calcification. Left-sided infrarenal IVC, a variant of normal. Pelvis: Urinary bladder partially distended, unremarkable. Bones/Soft Tissues: Redemonstration of bilateral rectus hematoma, common extending over craniocaudad dimension of approximately 10.3 cm on 5:88, similar to prior. Axial configuration of hematoma is slightly different than prior, with decreased size of the left-sided component, measuring 4.9 cm in AP dimension on 2:27 (previously 5.0 cm); but slight enlargement of the right-sided component, measuring 4.8 cm in AP dimension on 2:127 (previously 3.1 cm). Old post traumatic deformities of several right-sided ribs. Mild degenerative change. Mild soft tissue edema along pannus. Lower thorax: Moderate right pleural effusion. Prior left pleural effusion has improved. Patchy and linear bibasilar opacity could represent atelectasis, with slightly improved aeration of right lower lobe. IMPRESSION: RECTUS HEMATOMA, WITH STABLE CRANIOCAUDAD DIMENSION BUT SLIGHT DIFFERENCE IN AXIAL CONFIGURATION, DESCRIBED. THIS MAY BE FROM SIMPLE MATURATION/REDISTRIBUTION OR FROM MILD NEW RIGHT-SIDED HEMORRHAGE. STABLE ENLARGED PARACELIAC LYMPH NODE. Loss Prevention Operations Manager: IDA Transcribe Date/Time: Jan 17 2018 8:23P Dictated by : GA ANDERSON MD This examination was interpreted and the report reviewed and electronically signed by: GA ANDERSON MD on Jan 17 2018 8:36PM EST [id number] PROGRESS Observed: 01/17/2018 Status: COMPLETED Source: [place] 10:52 AM [facility] REPOSITORY HNO ID: [id number] Author: Kristina Rocha Service: Cardiovascular Medicine Author Type: Nurse Practitioner Type: Progress Notes Filed: 01/17/2018 10:53 AM Note Text: [facility]ARDI[facility]ULAR [facility]ICINE PROGRESS NOTE Frank Rivera [id number] PRIMARY SERVICE: Hvi Clinical General Agent/Pa HOSPITAL DAY: # 24 INTERVAL HISTORY No acute issues Transfuse 1 unit Rhythm: SR Intake/Output Summary (Last 24 hours) at 01/17/18 1052 Last data filed at 01/17/18 1046 Gross per 24 hour Intake 1151 ml Output 3000 ml Net -1849 ml EKG: Most recent reviewed TELE: most recent recordings reviewed CXR: most recent image reviewed, most recent report reviewed Echocardiogram: most recent report reviewed PHYSICAL EXAM: BP 149/71 Pulse 61 Temp 37.1 ?C (98.8 ?F) (Oral) Resp 20 Ht 193 cm (6' 4) Wt 105.6 kg (232 lb 11.2 oz) SpO2 92% BMI 28.33 kg/m? Neuro: AANDO x 3 moves all extremities with no apparent weakness CV: no jugular venous distention RRR without gallop, or rubs. ?No ectopy. ?+ systolic/diastolic murmer Resp: clear to auscultation bilaterally Abd: +BS x4 Skin: skin color, texture, turgor normal, no rashes or lesions Ext: no edema MEDICATIONS Current hospital medications: peg 3350-Electrolytes 4,000 mL oral liquid (GOLYTELY) 4,000 mL ORAL ONCE doxycycline 100 mg in D5W 250 mL Vial-Mate (VIBRAMYCIN) 100 mg INTRAVENOUS q 12 H cefTRIAXone 2 g in D5W 100 mL MB+ (ROCEPHIN) 2 g INTRAVENOUS q 24 H docusate sodium 100 mg cap(s) (COLACE) 100 mg ORAL BID PRN polyethylene glycol 3350 17 g packet (MIRALAX, GLYCOLAX) 17 g ORAL DAILY PRN senna-docusate 8.6-50 mg 1 tablet (SENNA-S) 1 tablet ORAL/FEEDING TUBE BID PRN calcium carbonate 1,000 mg chewable tab(s) (TUMS) 1,000 mg ORAL/FEEDING TUBE BID PRN acetaminophen 650 mg tab(s) (TYLENOL) 650 mg ORAL q 4 H PRN sodium chloride 0.65 % 2 [place] (AYR, OCEAN) 2 [place] EACH NOSTRIL TID PRN exdtygpn-pwne-qglwp acid chewable tablet (CENTRUM) 1 tablet ORAL DAILY cholecalciferol 3,000 Units tab(s) (VITAMIN D3) 3,000 Units ORAL DAILY cyanocobalamin 500 mcg tab(s) (VITAMIN B-12) 500 mcg ORAL DAILY thiamine 100 mg tab(s) (VITAMIN B1) 100 mg ORAL DAILY diphenhydrAMINE 25 mg (BENADRYL) 25 mg ORAL q 6 H PRN aspirin, enteric coated 81 mg tab(s) 81 mg ORAL DAILY metoprolol tartrate (short acting) 12.5 mg tab(s) (LOPRESSOR) 12.5 mg ORAL BID tamsulosin ER 0.4 mg cap(s) (FLOMAX) 0.4 mg ORAL DAILY pantoprazole DR 40 mg tab(s) (PROTONIX) 40 mg ORAL BID levothyroxine 200 mcg tab(s) (SYNTHROID) 200 mcg ORAL BEFORE BREAKFAST DAILY atorvastatin 80 mg tab(s) (LIPITOR) 80 mg ORAL AT BEDTIME DATA Recent Labs 01/17/1833701/16/1843801/15/18 0537 WBC 3.24* 3.36* 3.02* HB 6.9* 7.2* 6.9* HCT 21.6* 21.6* 21.9* PLT 90* 93* 94* Recent Labs 01/17/1833701/16/1843801/15/18 0537 NA 135* 133* 135* K 4.5 4.8 4.8 CO2 28 26 28 BUN 19 30* 23 CREAT 3.74* 5.31* 4.30* GLUC 95 85 84 MG 1.9 2.1 1.9 ASSESSMENT AND PLAN Presentation/Indication for admission/procedure: C3 NEPHROPATHY;IRINA Admit date: 12/24/2017 LVEF: 60 RVEF: Low Nl Cards: [facility] Cath: PMH/PSH: Atrial fibrillation on apixaban 5mg BID on metoprolol 12.5mg BID HTN Hypothyroidism on levothyroxine 200mcg qdaily Atrial Fibrillation s/p PPM and DCCV in 04/2017 Aortic Stenosis s/p bioprosthetic AVR (27mm St. Richi Trifecta pericardial valve) and RUDY ligation 05/07/17 Sick sinus syndrome s/p pacemaker placement 05/13/17 Hx of CVA with residual dysphagia Chronic Iron Deficiency Anemia (also B12 deficient) Hx of Min-En-Y bypass in 1995 Hx of Upper GI bleeds (1997, 2014, 2015) Procedure/OR performed (including complications): Echocardiogram CHANDRAKANT CT C/A/P CT brain Brief Hospital Course/Narrative: Mr. Frank Rivera is a 62y/o gentleman with atrial fibrillation and SSS s/p PPM, HTN, hypothyroidism, aortic stenosis s/p AVR and RUDY, history of Min-en-Y bypass c/b recurrent GIB, ADRIANNE, B12 deficiency, who presents to [facility] on 12/24/17 with fatigue and shortness of breath who was transferred from OSH with IRINA and renal biopsy concerning for C3 nephropathy. MICU transfer to initiate dialysis secondary to volume overload. CHANDRAKANT 01/01 showed AV vegitation. Transfered to [facility] 01/13 Issues to communicate: - Bartonella positive, on IV doxycycline and ceftriaxone - still not producing urine, IHD 01/16 - Hgb, tx if < 7. transfuse 01/17 for 6.12/11.6. Does not need colon/EGD. Testing previously done and has a negative tag study. LDH 598 - CTS - Dr. Cuauhtemoc Parker Neuro cleared pt for [facility] TDC in IR ordered Problem Subacute Bacterial Endocarditis History: Bartonella henselae Assessment: On rocephin and doxy Plan: Continue ABx per ID, CTS for [facility]. Anemia History: Hx FE, B12 deficiencies, UGI bleeds, Heyde's syndrome Assessment: BMBx - Normocytic anemia with anisocytosis and no increased schistocytes or spherocytes. Thrombocytopenia. Iron studies suggest anmeia of chronic disease Plan: Monitor. Transfuse for Hgb <7, 01/15. No EGD/Colon - testing previously done. Repeat LDH 598 Pancytopenia (Hcc) History: Hx anemia, FE, B12 Assessment: BMBX Normocytic anemia with anisocytosis Plan: Hematology signed off. Atrial Fibrillation (Hcc) History: Hx post op AF Assessment: S/P DCC 06/07. In SR Plan: Continue Beta Magdy. Irina (Acute Kidney Injury) (Hcc) History: IRINA. No Hx CKD Assessment: C3 nephropathy Plan: IHD per nephrology. TDC in IR ordered. Htn (Hypertension) History: on hydralazine, lopressor at home Assessment: Currently well controlled Plan: Continue lopressor. Rectus Sheath Hematoma History: Pt with hematoma found on CT. Had renal Bx at OSH? Assessment: Stable by repeat CT Plan: Monitor. Cva, Old, Dysphagia History: Remote Assessment: Mild dysphagia Plan: Neuro cleared pt for [facility]. Malnutrition of Moderate Degree (Hcc) History: Per nutrition Assessment: In the context of Acute Illness or Injury based on: Insufficient Energy Intake: <75% for >7 days Subcutaneous Fat Loss: Mild Loss Muscle Loss Mild Loss Plan: Intervention: 1) Continue Regular diet 2) Beneprotein TID (75kcal, 18g ptn) 3) Continue Bariatric Vitamin regimen 4) Maintain normal bowel regimen 5) Please document accurate intakes of meals and supplements to further assess nutritional status. Thank you. Goals: pt to meet > 75% of est needs prior to d/c. Case discussed with Shaun Robledo Cardiovascular Medicine Nurse Practitioner Pager [phone] (please see below for after hours communication) 01/17/2018 10:52 AM For communication after 5 pm on weekdays and after 12 pm on weekends, please page the following: - Clinical Cardiology patients on all floors: page [phone] - Other Cardiology patients on J5 and J6: page [phone] - Other Cardiology patients on J7 and J8: page [phone] LD Collected: 01/17/2018 Status: F Source: [facility] 8:45 AM [facility] REPOSITORY TYPE CODE TESTS RESULT OUT OF RANGE REFERENCE UNITS LAB LD 135-225 U/L High LD 598 Performed By: #### LD6 #### [facility] [employer] [address] [place] [address] OCCULT BLOOD DIAG. Collected: 01/17/2018 Status: F Source: [place] 4:14 AM [facility] REPOSITORY TYPE CODE TESTS RESULT OUT OF REFERENCE UNITS RANGE LAB OBSRCE Occult Stool Blood Source: LAB OBD Occult Negative Blood Diag. Performed By: #### OBDX #### [facility] [employer] [address] [place] [address] BASIC METABOLIC PANL Collected: 01/17/2018 Status: F Source: [place] 3:38 AM [facility] REPOSITORY TYPE CODE TESTS RESULT OUT OF REFERENCE UNITS RANGE LAB GLU 74-99 mg/dL Glucose 95 Result Comment: The [place] Diabetes Association (ADA) provides guidance for cutoff values for fasting glucose and random glucose. The ADA defines fasting as no caloric intake for at least 8 hours. Fas ting plasma glucose results between 100 to 125 mg/dL indicate increased risk for diabetes (prediabetes). Fasting plasma glucose results greater than or equal to 126 mg/dL meet the criteria for diagnosis of diabetes. In the absence of unequivocal hyperglycemia, results should be confirmed by repeat testing. In a patient with classic symptoms of hyperglycemia or hyperglycemic crisis, random plasma glucose results greater than or equal to 200 mg/dL meet the criteria for diagnosis of diabetes. Reference: Standards of Medical Care in Diabetes 2016, [place] Diabetes Association. Diabetes Care. 2016.39(Suppl 1). LAB BUN 9-24 mg/dL BUN 19 LAB CRET 0.73-1.22 mg/dL Creatinine High 3.74 LAB NA 136-144 mmol/L Low Sodium 135 LAB K 3.7-5.1 mmol/L Potassium 4.5 LAB CL 97-105 mmol/L Chloride 99 LAB CO2 22-30 mmol/L CO2 28 LAB AGAP 9-18 mmol/L Low Anion Gap 8 LAB CA 8.5-10.2 mg/dL Low Calcium, Total 8.0 LAB GFRAA eGFR- Amer. 20 LAB GFRNAA . eGFR-All Other Races 17 Result Comment: eGFR (Estimated GFR) Units of measure: mL/min/1.73 meters squared eGFR is derived from the reexpressed MDRD Study equation using the following parameters: serum creatinine, age, gender and race. The creatinine assay has been calibrated to be traceable to IDMS. An eGFR <60 mL/min/1.73m2 for >3 months is consistent with chronic kidney disease. Refer to KDOQI guidelines for clinical interpretation. In patients with unstable renal function, e.g. those with acute kidney injury, the eGFR may not accurately reflect actual GFR. Performed By: #### BMP, MG1, PHOS, CBCDIF #### [facility] [address] [place], [place] [address] MAGNESIUM Collected: 01/17/2018 Status: F Source: [place] 3:38 AM [facility] REPOSITORY TYPE CODE TESTS RESULT OUT OF REFERENCE UNITS RANGE LAB MG 1.7-2.3 mg/dL Magnesium 1.9 Performed By: #### BMP, MG1, PHOS, CBCDIF #### [facility] [address] [place], [place] [address] PHOSPHORUS Collected: 01/17/2018 Status: F Source: [place] 3:[address] [facility] REPOSITORY TYPE CODE TESTS RESULT OUT OF REFERENCE UNITS RANGE LAB PHOS 2.7-4.8 mg/dL Low Phosphorus 2.4 Performed By: #### JUAN M, MG1, PHOS, CBCDIF #### [facility] [address] [place], [place] [address] CBC AND DIFFERENTIAL Collected: 01/17/2018 Status: F Source: [place] 3:[address] [facility] REPOSITORY TYPE CODE TESTS RESULT OUT OF REFERENCE UNITS RANGE LAB WBC 3.70-11.00 k/uL Low WBC 3.24 LAB RBC 4.20-6.00 m/uL Low RBC 2.23 LAB HGB 13.0-17.0 g/dL Low Hemoglobin 6.9 LAB HCT 39.0-51.0 % Low Hematocrit 21.6 LAB MCV 80.0-100.0 fL MCV 96.9 LAB MCH 26.0-34.0 pG MCH 30.9 LAB MCHC 30.5-36.0 g/dL MCHC 31.9 LAB RDWCV 11.5-15.0 % RDW-CV High 18.4 LAB PLTCT 150-400 k/uL Low Platelet Count 90 Result Comment: No clot detected. LAB MPV 9.0-12.7 fL MPV 9.7 LAB ANEUT % Neut% 53.1 LAB AANEUT 1.45-7.50 k/uL Abs Neut 1.70 LAB ALYMP % Lymph% 33.0 LAB AALYMP 1.00-4.00 k/uL Abs Lymph 1.07 LAB AMONO % Pope% 12.7 LAB AAMONO <0.87 k/uL Abs Pope 0.41 LAB AEOS % Eosin% 0.6 LAB AAEOS <0.46 k/uL Abs Eosin <0.03 LAB ABASO % Baso% 0.6 LAB AABASO <0.11 k/uL Abs Baso <0.03 LAB AUNRBC 0 /100 WBC NRBCs 0.0 LAB ABNRBC <0.01 k/uL Absolute nRBC <0.01 LAB DTYP DTYPE Auto Diff Performed By: #### JUAN M, MG1, PHOS, CBCDIF #### [facility] [address] [place], [place] [address] TYPE AND SCREEN Collected: 01/17/2018 Status: F Source: PLANO 3:38 AM [facility] REPOSITORY TYPE CODE TESTS RESULT OUT OF REFERENCE UNITS RANGE LAB %ABR A ABO/RH(D) POSITIVE LAB % Antibody NEG Screen Performed By: #### TSCR #### [facility] [address] [place], [place] [address] PROGRESS Observed: 01/16/2018 Status: COMPLETED Source: [place]AN[place] 1:22 PM [facility] REPOSITORY HNO ID: [id number] Author: Kristina Childs (Ruby Developer) Aj Service: Cardiovascular Medicine Author Type: Nurse Practitioner Type: Progress Notes Filed: 01/16/2018 1:22 PM Note Text: [facility]ARD[facility]IC[facility] PROGRESS NOTE Frank Rivera [id number] PRIMARY SERVICE: Hvi Clinical General Agent/Pa HOSPITAL DAY: # 23 INTERVAL HISTORY In HD Rhythm: SR Intake/Output Summary (Last 24 hours) at 01/16/18 1322 Last data filed at 01/16/18 1221 Gross per 24 hour Intake 85 ml Output 3000 ml Net -2915 ml EKG: Most recent reviewed TELE: most recent recordings reviewed CXR: most recent image reviewed, most recent report reviewed Echocardiogram: most recent report reviewed PHYSICAL EXAM: BP 133/69 Pulse 87 Temp 37.1 ?C (98.8 ?F) (Oral) Resp 18 Ht 193 cm (6' 4) Wt 106.9 kg (235 lb 9.6 oz) SpO2 91% BMI 28.68 kg/m? Patient not seen MEDICATIONS Current hospital medications: [START ON 01/17/2018] peg 3350-Electrolytes 4,000 mL oral liquid (GOLYTELY) 4,000 mL ORAL ONCE doxycycline 100 mg in D5W 250 mL Vial-Mate (VIBRAMYCIN) 100 mg INTRAVENOUS q 12 H cefTRIAXone 2 g in D5W 100 mL MB+ (ROCEPHIN) 2 g INTRAVENOUS q 24 H docusate sodium 100 mg cap(s) (COLACE) 100 mg ORAL BID PRN polyethylene glycol 3350 17 g packet (MIRALAX, GLYCOLAX) 17 g ORAL DAILY PRN senna-docusate 8.6-50 mg 1 tablet (SENNA-S) 1 tablet ORAL/FEEDING TUBE BID PRN calcium carbonate 1,000 mg chewable tab(s) (TUMS) 1,000 mg ORAL/FEEDING TUBE BID PRN acetaminophen 650 mg tab(s) (TYLENOL) 650 mg ORAL q 4 H PRN sodium chloride 0.65 % 2 [place] (AYR, OCEAN) 2 [place] EACH NOSTRIL TID PRN fkkdybti-ikpg-bujlt acid chewable tablet (CENTRUM) 1 tablet ORAL DAILY cholecalciferol 3,000 Units tab(s) (VITAMIN D3) 3,000 Units ORAL DAILY cyanocobalamin 500 mcg tab(s) (VITAMIN B-12) 500 mcg ORAL DAILY thiamine 100 mg tab(s) (VITAMIN B1) 100 mg ORAL DAILY diphenhydrAMINE 25 mg (BENADRYL) 25 mg ORAL q 6 H PRN aspirin, enteric coated 81 mg tab(s) 81 mg ORAL DAILY metoprolol tartrate (short acting) 12.5 mg tab(s) (LOPRESSOR) 12.5 mg ORAL BID tamsulosin ER 0.4 mg cap(s) (FLOMAX) 0.4 mg ORAL DAILY pantoprazole DR 40 mg tab(s) (PROTONIX) 40 mg ORAL BID levothyroxine 200 mcg tab(s) (SYNTHROID) 200 mcg ORAL BEFORE BREAKFAST DAILY atorvastatin 80 mg tab(s) (LIPITOR) 80 mg ORAL AT BEDTIME DATA Recent Labs 01/16/1843801/15/1853601/14/18 1635 WBC 3.36* 3.02* 2.72* HB 7.2* 6.9* 7.0* HCT 21.6* 21.9* 21.9* PLT 93* 94* 90* Recent Labs 01/16/1843801/15/1853601/14/18 0345 NA 133* 135* 130* K 4.8 4.8 4.6 CO2 26 28 25 BUN 30* 23 34* CREAT 5.31* 4.30* 5.69* GLUC 85 84 79 MG 2.1 1.9 2.0 ASSESSMENT AND PLAN Presentation/Indication for admission/procedure: C3 NEPHROPATHY;IRINA Admit date: 12/24/2017 LVEF: 60 RVEF: Low Nl Cards: [facility] Cath: PMH/PSH: Atrial fibrillation on apixaban 5mg BID on metoprolol 12.5mg BID HTN Hypothyroidism on levothyroxine 200mcg qdaily Atrial Fibrillation s/p PPM and DCCV in 04/2017 Aortic Stenosis s/p bioprosthetic AVR (27mm St. Richi Trifecta pericardial valve) and RUDY ligation 05/07/17 Sick sinus syndrome s/p pacemaker placement 05/13/17 Hx of CVA with residual dysphagia Chronic Iron Deficiency Anemia (also B12 deficient) Hx of Min-En-Y bypass in 1995 Hx of Upper GI bleeds (1997, 2014, 2015) Procedure/OR performed (including complications): Echocardiogram CHANDRAKATN CT C/A/P CT brain Brief Hospital Course/Narrative: Mr. Frank Rivera is a 62y/o gentleman with atrial fibrillation and SSS s/p PPM, HTN, hypothyroidism, aortic stenosis s/p AVR and RUDY, history of Min-en-Y bypass c/b recurrent GIB, ADRIANNE, B12 deficiency, who presents to [facility] on 12/24/17 with fatigue and shortness of breath who was transferred from OSH with IRINA and renal biopsy concerning for C3 nephropathy. MICU transfer to initiate dialysis secondary to volume overload. CHANDRAKANT 01/01 showed AV vegitation. Transfered to [facility] 01/13 Issues to communicate: - Bartonella positive, on IV doxycycline and ceftriaxone - still not producing urine, IHD 01/16 - Hgb, tx if < 7. transfuse 01/15 for 6.9.9. GI consult. EGD/colon 01/18. GI will write note after testing - CTS - Dr. Cuauhtemoc Parker Neuro cleared pt for [facility] TDC in IR ordered Problem Subacute Bacterial Endocarditis History: Bartonella henselae Assessment: On rocephin and doxy Plan: Continue ABx per ID, CTS for [facility] Anemia History: Hx FE, B12 deficiencies, UGI bleeds, Heyde's syndrome Assessment: BMBx - Normocytic anemia with anisocytosis and no increased schistocytes or spherocytes. Thrombocytopenia. Iron studies suggest anmeia of chronic disease Plan: Monitor. Transfuse for Hgb <7, 01/15. EGD/Colon 01/18, GI will follow. Pancytopenia (Hcc) History: Hx anemia, FE, B12 Assessment: BMBX Normocytic anemia with anisocytosis Plan: Hematology signed off. EGD/Colon 01/18, GI to follow. Atrial Fibrillation (Hcc) History: Hx post op AF Assessment: S/P DCC 06/07. In SR Plan: Continue Beta Magdy. Irina (Acute Kidney Injury) (Hcc) History: IRINA. No Hx CKD Assessment: C3 nephropathy Plan: IHD per nephrology. TDC in IR ordered. Htn (Hypertension) History: on hydralazine, lopressor at home Assessment: Currently well controlled Plan: Continue lopressor Rectus Sheath Hematoma History: Pt with hematoma found on CT. Had renal Bx at OSH? Assessment: Stable by repeat CT Plan: Monitor Cva, Old, Dysphagia History: Remote Assessment: Mild dysphagia Plan: Neuro cleared pt for [facility] Malnutrition of Moderate Degree (Hcc) History: Per nutrition Assessment: In the context of Acute Illness or Injury based on: Insufficient Energy Intake: <75% for >7 days Subcutaneous Fat Loss: Mild Loss Muscle Loss Mild Loss Plan: Intervention: 1) Continue Regular diet 2) Beneprotein TID (75kcal, 18g ptn) 3) Continue Bariatric Vitamin regimen 4) Maintain normal bowel regimen 5) Please document accurate intakes of meals and supplements to further assess nutritional status. Thank you. Goals: pt to meet > 75% of est needs prior to d/c. Case discussed with Shaun Robledo Cardiovascular Medicine Nurse Practitioner Pager [phone] (please see below for after hours communication) 01/16/2018 1:22 PM For communication after 5 pm on weekdays and after 12 pm on weekends, please page the following: - Clinical Cardiology patients on all floors: page [phone] - Other Cardiology patients on J5 and J6: page [phone] - Other Cardiology patients on J7 and J8: page [phone] CONSULT PROG Observed: 01/16/2018 Status: COMPLETED Source: PLANO 4:53 AM [facility] REPOSITORY HNO ID: [id number] Author: Cedric Edward MD Service: Nephrology Author Type: Physician Type: Consult Progress Note Filed: 01/16/2018 8:55 AM Note Text: CONSULT PROGRESS NOTE NEPHROLOGY SERVICE SUBJECTIVE INTERVAL HISTORY: - last IHD session 01/14 with 3.5 L UF - remains anuric - no overnight events - remains on doxy and ceftriaxone. - ID ok with TDC placement MEDICATIONS: Current hospital medications: peg 3350-Electrolytes 4,000 mL oral liquid (GOLYTELY) 4,000 mL ORAL ONCE doxycycline 100 mg in D5W 250 mL Vial-Mate (VIBRAMYCIN) 100 mg INTRAVENOUS q 12 H cefTRIAXone 2 g in D5W 100 mL MB+ (ROCEPHIN) 2 g INTRAVENOUS q 24 H docusate sodium 100 mg cap(s) (COLACE) 100 mg ORAL BID PRN polyethylene glycol 3350 17 g packet (MIRALAX, GLYCOLAX) 17 g ORAL DAILY PRN senna-docusate 8.6-50 mg 1 tablet (SENNA-S) 1 tablet ORAL/FEEDING TUBE BID PRN calcium carbonate 1,000 mg chewable tab(s) (TUMS) 1,000 mg ORAL/FEEDING TUBE BID PRN acetaminophen 650 mg tab(s) (TYLENOL) 650 mg ORAL q 4 H PRN sodium chloride 0.65 % 2 [place] (AYR, OCEAN) 2 [place] EACH NOSTRIL TID PRN sqqivihi-mebt-tyjqc acid chewable tablet (CENTRUM) 1 tablet ORAL DAILY cholecalciferol 3,000 Units tab(s) (VITAMIN D3) 3,000 Units ORAL DAILY cyanocobalamin 500 mcg tab(s) (VITAMIN B-12) 500 mcg ORAL DAILY thiamine 100 mg tab(s) (VITAMIN B1) 100 mg ORAL DAILY diphenhydrAMINE 25 mg (BENADRYL) 25 mg ORAL q 6 H PRN aspirin, enteric coated 81 mg tab(s) 81 mg ORAL DAILY metoprolol tartrate (short acting) 12.5 mg tab(s) (LOPRESSOR) 12.5 mg ORAL BID tamsulosin ER 0.4 mg cap(s) (FLOMAX) 0.4 mg ORAL DAILY pantoprazole DR 40 mg tab(s) (PROTONIX) 40 mg ORAL BID levothyroxine 200 mcg tab(s) (SYNTHROID) 200 mcg ORAL BEFORE BREAKFAST DAILY atorvastatin 80 mg tab(s) (LIPITOR) 80 mg ORAL AT BEDTIME OBJECTIVE PHYSICAL EXAM: BP 148/70 Pulse 64 Temp 36.6 ?C (97.8 ?F) (Oral) Resp 20 Ht 193 cm (6' 4) Wt 104.9 kg (231 lb 4.8 oz) SpO2 95% BMI 28.15 kg/m? Intake/Output Summary (Last 24 hours) at 01/15/18 1500 Last data filed at 01/15/18 1205 Gross per 24 hour Intake 1100 ml Output 0 ml Net 1100 ml Constitutional: No acute distress Eyes: Conjunctiva clear, nl EOM Neck: trachea midline, no palpable mass Cardiovascular: RRR, nl S1/S2, + murmur Respiratory: normal inspiratory effort, CTA b/l Abdomen: soft, non tender, non distended, normal bowel sounds Extremities: no clubbing, + peripheral edema Neurologic: non-focal Psychiatric: AAO x 3, normal affect Vascular access: RIJ non yelitza DC DATA: Diagnostic tests reviewed for today's visit: Recent Labs 01/15/18 0537 01/14/18 0345 01/13/18 0350 01/12/18 0439 01/11/18 0410 NA 135* 130* 132* 131* 132* K 4.8 4.6 4.4 5.3* 4.7 CHLOR 98 96* 97 97 98 CO2 28 25 27 21* 24 BUN 23 34* 25* 40* 27* CREAT 4.30* 5.69* 4.30* 6.05* 4.90* GLUC 84 79 81 82 81 ANION 9 9 8* 13 10 CA 8.2* 7.5* 8.1* 8.2* 7.7* P 2.7 3.6 2.6* 3.2 2.7 MG 1.9 2.0 1.9 2.0 1.9 Recent Labs 01/15/18 0537 01/14/18 1635 01/14/18 0345 WBC 3.02* 2.72* 3.35* HB 6.9* 7.0* 7.0* HCT 21.9* 21.9* 21.8* PLT 94* 90* 100* Recent Labs 12/24/17 1720 COLOR Bridget* CLARITY Cloudy* UGLUC Negative UBILI Negative UKET Negative SPGR 1.013 UHB 3+* UPH 6.0 UPROT 100* NITRITES Negative LEUKEST 2+* UWBC >25* URBC >25* Recent Labs 01/15/18 0537 12/24/17 1632 MAX -- -- 422.0 TRANSFERSAT -- -- >89* HB 6.9* < > -- < > = values in this interval not displayed. Recent Labs 01/15/18 0537 01/08/18 0513 CA 8.2* < > 7.8* P 2.7 < > 3.7 ALB -- -- 2.1* < > = values in this interval not displayed. Recent Labs 12/25/17 1718 HEPSABQ Negative ASSESSMENT 62 year old male with PMH including A-fibb, s/p AVR, history of CVA, Fe deficiency anemia and hemolytic anemia presented to [facility] as a transfer from OSH on 12/24. ?Initial presentation to OSH was due to suspected GI bleed. Patient had low Hg however no diagnostic findings on Colonoscopy, EGD or tagged RBC scan. Patient was transferred to [facility] upon worsening of renal function. Nephrology consult for IRINA. ? 1. 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 ( 4 of 29 glomeruli). Mild tubular atrophy and interstitial fibrosis ?-Patient also ANCA +, MPO +, dsDNA + ?-Bartonella henselae IgM positive indicating acute Bartonella henselae infection ?-Bartonella amato IgM is negative, ?IgG is positive - last IHD session : 01/14 with 3.5 L UF - no signs of recovery as of yet ? 2. Mild Hyponatremia: should improve with IHD ? 3. Normocytic Anemia ?-Likely multifactorial cause including blood loss, hemolysis as well as acute renal failure ?-No concerning finding on BM bx. Below target. Transfused. - avoid IV iron in acute infection ? 5. Volume Overload. Edema likely also exacerbated by hypoalbuminemia 6. Bartonella infective endocarditis: awaiting CTS. - on doxycycline and ceftriaxone ? PLAN - IHD today - anticipate next session Thursday, awaiting surgery date. Supportive measures - Strict I/O's - Daily weights - Renal diet - Dose medications for eGFR <10 mL/min Maciej Zapata MD Nephrology and Hypertension Fellow P#[id number] 01/16/18 5:07 AM FOR AFTER HOUR CONCERNS BETWEEN 5PM - 7AM CONTACT ON-CALL NEPHROLOGY FELLOW TEACHING PHYSICIAN NOTE OF PERSONAL INVOLVEMENT IN CARE I have reviewed the Progress Note obtained and documented by Dr. Zapata and I personally participated in the hernandez components. I have discussed the case and management of the patient's care and I agree with the formulated assessment and plan. In addition to above note: Seen and examined on dialysis - prescription reviewed and confirmed - next anticipated treatment on Thursday. Cedric Edward MD, FASN - Pager [phone] January 16, 2018 @ 8:55 AM BASIC METABOLIC PANL Collected: 01/16/2018 Status: F Source: PLANO 4:39 AM [facility] REPOSITORY TYPE CODE TESTS RESULT OUT OF REFERENCE UNITS RANGE LAB GLU 74-99 mg/dL Glucose 85 Result Comment: The [place] Diabetes Association (ADA) provides guidance for cutoff values for fasting glucose and random glucose. The ADA defines fasting as no caloric intake for at least 8 hours. Fas ting plasma glucose results between 100 to 125 mg/dL indicate increased risk for diabetes (prediabetes). Fasting plasma glucose results greater than or equal to 126 mg/dL meet the criteria for diagnosis of diabetes. In the absence of unequivocal hyperglycemia, results should be confirmed by repeat testing. In a patient with classic symptoms of hyperglycemia or hyperglycemic crisis, random plasma glucose results greater than or equal to 200 mg/dL meet the criteria for diagnosis of diabetes. Reference: Standards of Medical Care in Diabetes 2016, [place] Diabetes Association. Diabetes Care. 2016.39(Suppl 1). LAB BUN 9-24 mg/dL BUN High 30 LAB CRET 0.73-1.22 mg/dL Creatinine High 5.31 LAB NA 136-144 mmol/L Low Sodium 133 LAB K 3.7-5.1 mmol/L Potassium 4.8 LAB CL 97-105 mmol/L Low Chloride 96 LAB CO2 22-30 mmol/L CO2 26 LAB AGAP 9-18 mmol/L Anion Gap 11 LAB CA 8.5-10.2 mg/dL Low Calcium, Total 8.1 LAB GFRAA eGFR- Amer. 13 LAB GFRNAA . eGFR-All Other Races 11 Result Comment: eGFR (Estimated GFR) Units of measure: mL/min/1.73 meters squared eGFR is derived from the reexpressed MDRD Study equation using the following parameters: serum creatinine, age, gender and race. The creatinine assay has been calibrated to be traceable to IDMS. An eGFR <60 mL/min/1.73m2 for >3 months is consistent with chronic kidney disease. Refer to KDOQI guidelines for clinical interpretation. In patients with unstable renal function, e.g. those with acute kidney injury, the eGFR may not accurately reflect actual GFR. Performed By: #### BMP, MG1, PHOS, CBCDIF #### [facility] [employer] [address] [place], [place] [address] MAGNESIUM Collected: 01/16/2018 Status: F Source: PLANO 4:39 AM [facility] REPOSITORY TYPE CODE TESTS RESULT OUT OF REFERENCE UNITS RANGE LAB MG 1.7-2.3 mg/dL Magnesium 2.1 Performed By: #### BMP, MG1, PHOS, CBCDIF #### [facility] [address] [place], [place] [address] PHOSPHORUS Collected: 01/16/2018 Status: F Source: PLANO 4:39 AM [facility] REPOSITORY TYPE CODE TESTS RESULT OUT OF REFERENCE UNITS RANGE LAB PHOS 2.7-4.8 mg/dL Phosphorus 2.8 Performed By: #### BMP, MG1, PHOS, CBCDIF #### [facility] [address] [place], [place] [address] CBC AND DIFFERENTIAL Collected: 01/16/2018 Status: F Source: PLANO 4:39 AM [facility] REPOSITORY TYPE CODE TESTS RESULT OUT OF REFERENCE UNITS RANGE LAB WBC 3.70-11.00 k/uL Low WBC 3.36 LAB RBC 4.20-6.00 m/uL Low RBC 2.26 LAB HGB 13.0-17.0 g/dL Low Hemoglobin 7.2 LAB HCT 39.0-51.0 % Low Hematocrit 21.6 LAB MCV 80.0-100.0 fL MCV 95.6 LAB MCH 26.0-34.0 pG MCH 31.9 LAB MCHC 30.5-36.0 g/dL MCHC 33.3 LAB RDWCV 11.5-15.0 % RDW-CV High 18.2 LAB PLTCT 150-400 k/uL Low Platelet Count 93 Result Comment: No clot detected. LAB MPV 9.0-12.7 fL MPV 10.2 LAB ANEUT % Neut% 58.0 LAB AANEUT 1.45-7.50 k/uL Abs Neut 1.95 LAB ALYMP % Lymph% 26.0 LAB AALYMP 1.00-4.00 k/uL Abs Lymph Low 0.87 LAB AMONO % Pope% 13.0 LAB AAMONO <0.87 k/uL Abs Pope 0.44 LAB AEOS % Eosin% 3.0 LAB AAEOS <0.46 k/uL Abs Eosin 0.10 LAB ABASO % Baso% 0.0 LAB AABASO <0.11 k/uL Abs Baso 0.00 LAB ABIMMG k/uL ANC(includeSEG+BAND 1.95 ) LAB ANIIMI Anisocytosis Present LAB OVAIMI Ovalocytes Few LAB POLIMI Polychromasia Slight LAB DTYP DTYPE Manual Diff Performed By: #### BMP, MG1, PHOS, CBCDIF #### [facility] [address] [place] [id number] PROGRESS Observed: 01/16/2018 Status: COMPLETED Source: PLANO 1:58 AM [facility] REPOSITORY HNO ID: [id number] Author: Downtime Note Service: (none) Author Type: (none) Type: Progress Notes Filed: 01/16/2018 2:00 AM Note Text: Epic Scheduled Downtime: 01/16/2018 12:00:01 AM to 01/16/2018 1:54:00 AM THERAPY NT Observed: 01/15/2018 Status: COMPLETED Source: PLANO 4:45 PM [facility] REPOSITORY HNO ID: [id number] Author: Patty MarieOt/LJennifer Sawyer Service: Occupational Therapy Author Type: Occupational Therapist Type: Therapy (PT/OT/Speech/Resp) Filed: 01/15/2018 4:48 PM Note Text: Occupational Therapy Treatment SERVICE DATE: 01/15/2018 SERVICE TIME: 1520 to 1548 ROOM: [place] [address] Recommended Discharge Disposition: Home OT Anticipated Discharge Needs: Physical Assist at Home Physical Assist at Home for: Transportation;Shopping;Laundry;Cleaning Recommended Discharge Equipment: To Be Determined OT Recommendations to Nursing: ADL?s in chair;Bedside Commode for Toileting;OOB for meals;With assist of 1 person OT 6 Clicks Score: 23 Precautions/Activity Restrictions: Lines/Tubes/Drains;Abdominal ASSESSMENT: Pt performing ADLs grossly at SBA level, transfers no AD, agreeable to BUE exercise. Tolerated with VSS. Patient Disposition at Start of Session: OOB in Chair Patient Disposition at End of Session: OOB in Chair;Call [facility] in Reach Tolerated Full Session Occupational Therapy Problem List: Cognitive Deficit;Safety Deficits;Impaired Self Care;Decreased Activity Tolerance;Functional Mobility Impairment;Balance Impaired Patient /Caregiver Goals: Go Home Goals for Plan of Care: Grooming with: Modified Independent Upper Body Bathing with: Modified Independent Upper Body Dressing with: Modified Independent Lower Body Bathing with: Stand By Assistance Lower Body Dressing with: Stand By Assistance Toilet Hygiene with: Stand By Assistance Chair Transfer with: Supervision Toilet Transfer with: Supervision Tolerate (minutes of functional activity): 30 Functional Activity with: Supervision Demonstrate Positive Coping Strategies with: Modified Independent Demonstrate Competence With Education with: Modified Independent Progress Toward Goals: Progressing as expected Rehab Potential: Good PLAN: Treatment Frequency (times per week): 2 Current admission Treatment Interventions: Education;Self Care / Home Management;Energy Conservation Training;Functional Mobility Training;Balance Training;Cognitive Training Plan of Care developed with: Patient TREATMENT INTERVENTIONS: Therapy Diagnosis: Decreased activities of daily living (ADL);Muscle Weakness (generalized) Interventions Provided: Therapeutic Activity (70326);Therapeutic Exercise (37279) Therapeutic Exercise (39918) Treatment Minutes: 18 1 unit Skilled Intervention(s): Therapist instructed pt in in therapeutic exercise seated EOB in order to increase BUE strength/ROM and improve activity tolerance for greater safety and independence in performance of ADL tasks. Therapist demonstrated exercises, pt return demonstrated with verbal and tactile cuing for proper technique and postural alignment. Pt performed 2 sets x 15 reps: B shoulder flex/ext, bicep flex/ext, tricep flex/ext, shoulder int/ext rotation, scap retraction/band peel aparts,, with tactile assist from therapist for facilitation of muscle control, optimal recruitment and alignment. *Performed in stance to challenge dynamic standing balance, improve endurance. Therapeutic Activity (23052) Treatment Minutes: 10 1 unit Skilled Intervention(s): Therapist instructed pt in safe sit<>stand to/from EOB, verbal cues provided to encourage anterior weight shift, push with BUEs from EOB; pt required CGA to lift to stance. Therapist instructed pt in slow controlled descent lowering to sit with BLEs in contact with EOB, reaching back with BUEs before lowering; pt able to perform with CGA and verbal cues for safety. Pt performed functional mobility household distance x 4 with SBA, nd verbal cues provided for safety, pacing, self awareness of physiological response, negotiation of obstacles in environment. Vital signs monitored and stable throughout. Review of sternal precautions with pt and daughter, all questions answered to satisfaction. Total Timed Code Treatment Minutes: 28 Total Treatment Time (minutes): 28 FUNCTIONAL G CODE: OT 6 Clicks Score: 23 (01/15/18 1520) Self Care Current Status (G8987): CI (01/15/18 1520) Self Care Goal Status (G8988): CH (01/15/18 1520) Based on clinical assessment and the score on the 6 Clicks Functional Assessment Tool, the G code and corresponding severity modifiers are documented above. SUBJECTIVE: Current Hospital Course: Chart reviewed and no significant medical updates relevant to therapy were noted Reason for Occupational Therapy Consult: Safety assessment Patient Report: I am getting bored just sitting around. 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) OBJECTIVE: Responsiveness: Alert;Awake Follows Commands: 3-step Commands Executive Function Deficits: Safety Awareness Safety Awareness Deficit: Minimal impairment Mini Cog Score: 5 (12/28/17 0835) CURRENT FUNCTIONAL STATUS: Current Activities of Daily Living Assist Level Feeding Set Up Grooming Set Up Bathing Upper Body Stand By Assistance Bathing Lower Body Moderate Assistance Dressing Upper Body Stand By Assistance Dressing Lower Body Moderate Assistance Toileting Moderate Assistance Instrumental Activities of Daily Living Assist Level Meal/Beverage Prep Light Cleaning Laundry Medication Management with Strategies Functional Mobility Assist Level Rolling Supine to Sit Stand By Assistance Sit to Supine Stand By Assistance Scooting Stand By Assistance Sit to Stand Supervision Stand to Sit Supervision Bed to Chair Toilet/Commode Functional Mobility Stand By Assistance (no AD) Balance: Static Sitting;Dynamic Sitting;Static Standing;Dynamic Standing Static Sitting Balance: Independent Dynamic Sitting Balance: Supervision Static Standing Balance: Stand By Assistance Dynamic Standing Balance: Stand By Assistance Activity Tolerance: Sitting Activity Sitting Activity: unsupported at EOB Sitting Activity Tolerance (in minutes): 15 Please see discipline specific clinical documentation flowsheet for complete details for this therapy evaluation/treatment. SIGNATURE: Patty Sawyer OT/L PATIENT NAME: Frank Rivera DATE: January 15, 2018 TIME: 4:45 PM CONSULT PROG Observed: 01/15/2018 Status: COMPLETED Source: PLANO 3:15 PM [facility] REPOSITORY HNO ID: [id number] Author: Janae Cao Service: Cardiac Surgery Author Type: Nurse Practitioner Type: Consult Progress Note Filed: 01/15/2018 3:18 PM Note Text: [facility] CONSULT PROGRESS NOTE Frank Rivera [id number] CONSULTING SERVICE: Cardiothoracic Surgery PRIMARY SERVICE: Cardiology: Clinical TIME CLOCK MECHANIC/PA service PLAN: Surgical timing TBD for the PVE. SUBJECTIVE: INTERVAL HISTORY: Clinically stable. No acute events OBJECTIVE: MEDICATIONS: Current hospital medications: peg 3350-Electrolytes 4,000 mL oral liquid (GOLYTELY) 4,000 mL ORAL ONCE doxycycline 100 mg in D5W 250 mL Vial-Mate (VIBRAMYCIN) 100 mg INTRAVENOUS q 12 H cefTRIAXone 2 g in D5W 100 mL MB+ (ROCEPHIN) 2 g INTRAVENOUS q 24 H docusate sodium 100 mg cap(s) (COLACE) 100 mg ORAL BID PRN polyethylene glycol 3350 17 g packet (MIRALAX, GLYCOLAX) 17 g ORAL DAILY PRN senna-docusate 8.6-50 mg 1 tablet (SENNA-S) 1 tablet ORAL/FEEDING TUBE BID PRN calcium carbonate 1,000 mg chewable tab(s) (TUMS) 1,000 mg ORAL/FEEDING TUBE BID PRN acetaminophen 650 mg tab(s) (TYLENOL) 650 mg ORAL q 4 H PRN sodium chloride 0.65 % 2 [place] (AYR, OCEAN) 2 [place] EACH NOSTRIL TID PRN eeyktrci-rdyl-ncqhz acid chewable tablet (CENTRUM) 1 tablet ORAL DAILY cholecalciferol 3,000 Units tab(s) (VITAMIN D3) 3,000 Units ORAL DAILY cyanocobalamin 500 mcg tab(s) (VITAMIN B-12) 500 mcg ORAL DAILY thiamine 100 mg tab(s) (VITAMIN B1) 100 mg ORAL DAILY diphenhydrAMINE 25 mg (BENADRYL) 25 mg ORAL q 6 H PRN aspirin, enteric coated 81 mg tab(s) 81 mg ORAL DAILY metoprolol tartrate (short acting) 12.5 mg tab(s) (LOPRESSOR) 12.5 mg ORAL BID tamsulosin ER 0.4 mg cap(s) (FLOMAX) 0.4 mg ORAL DAILY pantoprazole DR 40 mg tab(s) (PROTONIX) 40 mg ORAL BID levothyroxine 200 mcg tab(s) (SYNTHROID) 200 mcg ORAL BEFORE BREAKFAST DAILY atorvastatin 80 mg tab(s) (LIPITOR) 80 mg ORAL AT BEDTIME PHYSICAL EXAM: 01/15/18 1100 01/15/18 1205 01/15/18 1220 01/15/18 1400 BP: 121/67 146/71 130/68 148/70 Pulse: 60 63 66 64 Resp: 18 18 20 Temp: 36.7 ?C (98.1 ?F) 36.7 ?C (98 ?F) 36.6 ?C (97.8 ?F) TempSrc: Oral Oral Oral SpO2: 95% Weight: Height: PHYSICAL EXAMINATION General: Alert and oriented, no distress, pleasant and cooperative. Heart: Regular, normal S1 and S2, no murmurs, rubs, or gallops Lungs: decreased with crackles bilaterally Abdomen: Benign Extremities: Feet/ankles +1 edema, posterior tibial pulses full and symmetrical Intake/Output Summary (Last 24 hours) at 01/15/18 1515 Last data filed at 01/15/18 1205 Gross per 24 hour Intake 1100 ml Output 0 ml Net 1100 ml DATA: Laboratory: Recent Labs 01/15/18 0537 01/14/18 1635 01/14/18 0345 01/13/18 0350 WBC 3.02* 2.72* 3.35* 3.51* HB 6.9* 7.0* 7.0* 7.2* HCT 21.9* 21.9* 21.8* 22.3* PLT 94* 90* 100* 98* NA 135* -- 130* 132* K 4.8 -- 4.6 4.4 CHLOR 98 -- 96* 97 CO2 28 -- 25 27 BUN 23 -- 34* 25* CREAT 4.30* -- 5.69* 4.30* GLUC 84 -- 79 81 SIGNATURE: Janae Cao APRN.CNP PAGER: [phone] DATE of SERVICE: 01/15/2018 TIME of SERVICE: 3:17 PM PROGRESS Observed: 01/15/2018 Status: COMPLETED Source: [place] 3:00 PM [facility] REPOSITORY HNO ID: [id number] Author: Kristina Childs (Ruby Developer) Aj Service: Cardiovascular Medicine Author Type: Nurse Practitioner Type: Progress Notes Filed: 01/15/2018 3:01 PM Note Text: [facility] CARDIOVASCULAR MEDICINE PROGRESS NOTE Frank Rivera [id number] PRIMARY SERVICE: Hvi Clinical General Agent/Pa HOSPITAL DAY: # 22 INTERVAL HISTORY Transfuse today Rhythm: SR Intake/Output Summary (Last 24 hours) at 01/15/18 1500 Last data filed at 01/15/18 1205 Gross per 24 hour Intake 1100 ml Output 0 ml Net 1100 ml EKG: Most recent reviewed TELE: most recent recordings reviewed CXR: most recent image reviewed, most recent report reviewed Echocardiogram: most recent report reviewed PHYSICAL EXAM: BP 148/70 Pulse 64 Temp 36.6 ?C (97.8 ?F) (Oral) Resp 20 Ht 193 cm (6' 4) Wt 104.9 kg (231 lb 4.8 oz) SpO2 95% BMI 28.15 kg/m? Neuro: AANDO x 3 moves all extremities with no apparent weakness CV: no jugular venous distention RRR without gallop, or rubs. ?No ectopy. ?+ systolic/diastolic murmer Resp: clear to auscultation bilaterally Abd: +BS x4 Skin: skin color, texture, turgor normal, no rashes or lesions Ext: no edema MEDICATIONS Current hospital medications: peg 3350-Electrolytes 4,000 mL oral liquid (GOLYTELY) 4,000 mL ORAL ONCE doxycycline 100 mg in D5W 250 mL Vial-Mate (VIBRAMYCIN) 100 mg INTRAVENOUS q 12 H cefTRIAXone 2 g in D5W 100 mL MB+ (ROCEPHIN) 2 g INTRAVENOUS q 24 H docusate sodium 100 mg cap(s) (COLACE) 100 mg ORAL BID PRN polyethylene glycol 3350 17 g packet (MIRALAX, GLYCOLAX) 17 g ORAL DAILY PRN senna-docusate 8.6-50 mg 1 tablet (SENNA-S) 1 tablet ORAL/FEEDING TUBE BID PRN calcium carbonate 1,000 mg chewable tab(s) (TUMS) 1,000 mg ORAL/FEEDING TUBE BID PRN acetaminophen 650 mg tab(s) (TYLENOL) 650 mg ORAL q 4 H PRN sodium chloride 0.65 % 2 [place] (AYR, OCEAN) 2 [place] EACH NOSTRIL TID PRN inritrvg-iemd-empks acid chewable tablet (CENTRUM) 1 tablet ORAL DAILY cholecalciferol 3,000 Units tab(s) (VITAMIN D3) 3,000 Units ORAL DAILY cyanocobalamin 500 mcg tab(s) (VITAMIN B-12) 500 mcg ORAL DAILY thiamine 100 mg tab(s) (VITAMIN B1) 100 mg ORAL DAILY diphenhydrAMINE 25 mg (BENADRYL) 25 mg ORAL q 6 H PRN aspirin, enteric coated 81 mg tab(s) 81 mg ORAL DAILY metoprolol tartrate (short acting) 12.5 mg tab(s) (LOPRESSOR) 12.5 mg ORAL BID tamsulosin ER 0.4 mg cap(s) (FLOMAX) 0.4 mg ORAL DAILY pantoprazole DR 40 mg tab(s) (PROTONIX) 40 mg ORAL BID levothyroxine 200 mcg tab(s) (SYNTHROID) 200 mcg ORAL BEFORE BREAKFAST DAILY atorvastatin 80 mg tab(s) (LIPITOR) 80 mg ORAL AT BEDTIME DATA Recent Labs 01/15/18 0537 01/14/18 1635 01/14/18 0345 WBC 3.02* 2.72* 3.35* HB 6.9* 7.0* 7.0* HCT 21.9* 21.9* 21.8* PLT 94* 90* 100* Recent Labs 01/15/18 0537 01/14/18 0345 01/13/18 0350 NA 135* 130* 132* K 4.8 4.6 4.4 CO2 28 25 27 BUN 23 34* 25* CREAT 4.30* 5.69* 4.30* GLUC 84 79 81 MG 1.9 2.0 1.9 ASSESSMENT AND PLAN Presentation/Indication for admission/procedure: C3 NEPHROPATHY;IRINA Admit date: 12/24/2017 LVEF: 60 RVEF: Low Nl Cards: [facility] Cath: PMH/PSH: Atrial fibrillation on apixaban 5mg BID on metoprolol 12.5mg BID HTN Hypothyroidism on levothyroxine 200mcg qdaily Atrial Fibrillation s/p PPM and DCCV in 04/2017 Aortic Stenosis s/p bioprosthetic AVR (27mm [facility] Richi Trifecta pericardial valve) and RUDY ligation 05/07/17 Sick sinus syndrome s/p pacemaker placement 05/13/17 Hx of CVA with residual dysphagia Chronic Iron Deficiency Anemia (also B12 deficient) Hx of Min-En-Y bypass in 1995 Hx of Upper GI bleeds (1997, 2014, 2015) Procedure/OR performed (including complications): Echocardiogram CHANDRAKANT CT C/A/P CT brain Brief Hospital Course/Narrative: Mr. Frank Rivera is a 62y/o gentleman with atrial fibrillation and SSS s/p PPM, HTN, hypothyroidism, aortic stenosis s/p AVR and RUDY, history of Min-en-Y bypass c/b recurrent GIB, ADRIANNE, B12 deficiency, who presents to [facility] on 12/24/17 with fatigue and shortness of breath who was transferred from OSH with IRINA and renal biopsy concerning for C3 nephropathy. MICU transfer to initiate dialysis secondary to volume overload. CHANDRAKANT 01/01 showed AV vegitation. Transfered to [facility] 01/13 Issues to communicate: - Bartonella positive, on IV doxycycline and ceftriaxone - still not producing urine, IHD 01/14, was put on HD -- for IRINA (no hx of CKD) - Hgb, tx if < 7. transfuse 01/15 for 6.9/21.9. GI consult - CTS - Dr. Cuauhtemoc Parker Neuro cleared pt for [facility] Problem Subacute Bacterial Endocarditis History: Bartonella henselae Assessment: On rocephin and doxy Plan: Continue ABx per ID, CTS. Anemia History: Hx FE, B12 deficiencies, UGI bleeds, Heyde's syndrome Assessment: BMBx - Normocytic anemia with anisocytosis and no increased schistocytes or spherocytes. Thrombocytopenia. Iron studies suggest anmeia of chronic disease Plan: Monitor. Transfuse for Hgb <7, 01/15. EGD/Colon 01/18, GI will follow Pancytopenia (Hcc) History: Hx anemia, FE, B12 Assessment: BMBX Normocytic anemia with anisocytosis Plan: Hematology signed off. EGD/Colon 01/18, GI to follow Atrial Fibrillation (Hcc) History: Hx post op AF Assessment: S/P DCC 06/07. In SR Plan: Continue Beta Magdy Irina (Acute Kidney Injury) (Hcc) History: IRINA. No Hx CKD Assessment: C3 nephropathy Plan: IHD per nephrology. TDC in IR ordered Htn (Hypertension) History: on hydralazine, lopressor at home Assessment: Currently well controlled Plan: Continue lopressor Rectus Sheath Hematoma History: Pt with hematoma found on CT. Had renal Bx at OSH? Assessment: Stable by repeat CT Plan: Monitor Cva, Old, Dysphagia History: Remote Assessment: Mild dysphagia Plan: Neuro cleared pt for [facility] Malnutrition of Moderate Degree (Hcc) History: Per nutrition Assessment: In the context of Acute Illness or Injury based on: Insufficient Energy Intake: <75% for >7 days Subcutaneous Fat Loss: Mild Loss Muscle Loss Mild Loss Plan: Intervention: 1) Continue Regular diet 2) Beneprotein TID (75kcal, 18g ptn) 3) Continue Bariatric Vitamin regimen 4) Maintain normal bowel regimen 5) Please document accurate intakes of meals and supplements to further assess nutritional status. Thank you. Goals: pt to meet > 75% of est needs prior to d/c. Case discussed with Shaun Robledo Cardiovascular Medicine Nurse Practitioner Pager [phone] (please see below for after hours communication) 01/15/2018 3:00 PM For communication after 5 pm on weekdays and after 12 pm on weekends, please page the following: - Clinical Cardiology patients on all floors: page [phone] - Other Cardiology patients on J5 and J6: page [phone] - Other Cardiology patients on J7 and J8: page [phone] CONSULT PROG Observed: 01/15/2018 Status: COMPLETED Source: [place] 2:06 PM [facility] REPOSITORY O ID: [id number] Author: Rohit Olivas Service: Infectious Disease Author Type: Physician Type: Consult Progress Note Filed: 01/15/2018 2:09 PM Note Text: INFECTIOUS DISEASE CONSULT SERVICE PROGRESS NOTE Patient Name: Frank Rivera Interval Events: Course reviewed Awaiting OR date No fevers or chills Feels reasonably well Plans for transfusion In addition to those reviewed and documented in the HPI all other systems reviewed and were negative. MEDICATIONS Medications reviewed. Current hospital medications: doxycycline 100 mg in D5W 250 mL Vial-Mate (VIBRAMYCIN) 100 mg INTRAVENOUS q 12 H cefTRIAXone 2 g in D5W 100 mL MB+ (ROCEPHIN) 2 g INTRAVENOUS q 24 H docusate sodium 100 mg cap(s) (COLACE) 100 mg ORAL BID PRN polyethylene glycol 3350 17 g packet (MIRALAX, GLYCOLAX) 17 g ORAL DAILY PRN senna-docusate 8.6-50 mg 1 tablet (SENNA-S) 1 tablet ORAL/FEEDING TUBE BID PRN calcium carbonate 1,000 mg chewable tab(s) (TUMS) 1,000 mg ORAL/FEEDING TUBE BID PRN acetaminophen 650 mg tab(s) (TYLENOL) 650 mg ORAL q 4 H PRN sodium chloride 0.65 % 2 [place] (AYR, OCEAN) 2 [place] EACH NOSTRIL TID PRN dchnrbsu-adrp-pirqt acid chewable tablet (CENTRUM) 1 tablet ORAL DAILY cholecalciferol 3,000 Units tab(s) (VITAMIN D3) 3,000 Units ORAL DAILY cyanocobalamin 500 mcg tab(s) (VITAMIN B-12) 500 mcg ORAL DAILY thiamine 100 mg tab(s) (VITAMIN B1) 100 mg ORAL DAILY diphenhydrAMINE 25 mg (BENADRYL) 25 mg ORAL q 6 H PRN aspirin, enteric coated 81 mg tab(s) 81 mg ORAL DAILY metoprolol tartrate (short acting) 12.5 mg tab(s) (LOPRESSOR) 12.5 mg ORAL BID tamsulosin ER 0.4 mg cap(s) (FLOMAX) 0.4 mg ORAL DAILY pantoprazole DR 40 mg tab(s) (PROTONIX) 40 mg ORAL BID levothyroxine 200 mcg tab(s) (SYNTHROID) 200 mcg ORAL BEFORE BREAKFAST DAILY atorvastatin 80 mg tab(s) (LIPITOR) 80 mg ORAL AT BEDTIME Examination: BP 148/70 Pulse 64 Temp 36.6 ?C (97.8 ?F) (Oral) Resp 20 Ht 193 cm (6' 4) Wt 104.9 kg (231 lb 4.8 oz) SpO2 95% BMI 28.15 kg/m? Temp (24hrs), Av.9 ?C (98.4 ?F), Min:36.6 ?C (97.8 ?F), Max:37.2 ?C (98.9 ?F) General appearance: Up in chair at the side of the bed, no distress, visitor present Skin: no rash Head: neg Eyes: anicteric Oropharynx: neg Neck: right ij trialysis catheter Back: not examined Lungs: CTA Heart: rrnl, S1 and S2, 3/6 diastolic murmur along left sternal border-in a position lower than I had expected to hear it Abdomen: soft Extremities: Bilateral lower extremity edema - improved, some petechiae - evolving Musculoskeletal: Negative Peripheral pulses: radial pulses palpable Exam unchanged as compared with 01/14 other than as edited above. Lab, Microbiology and Imaging Data: Personally reviewed imaging studies, laboratory results, and microbiology results. ASSESSMENT: 62-year-old with multiple medical problems including but not limited to atrial fibrillation, hypertension, and aortic stenosis status post aortic valve replacement in April 2017 with a permanent pacemaker placed shortly thereafter was transferred to our hospital on 12/24 for further evaluation of an acute kidney injury. He initially presented to an outside hospital on 12/19 for further evaluation of a new anemia and renal failure after presenting to his primary care physician with fatigue and shortness of breath. He was treated empirically with prednisone for a glomerular nephritis and transferred. 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 Positive serologies for antineutrophil cytoplasmic antibodies and myeloperoxidase. He is requiring renal replacement therapy. Notable aspects of his workup thus far from infectious disease perspective has included: 2 blood cultures 12/25-no growth to date Bartonella serologies-IgG for Bartonella henselae greater than 1:1024, IgG for Bartonella amato 1:1024 Transesophageal echocardiogram 01/01-2-3+ TR, 3+ AI, thickening of the aorto-mitral curtain and posterior LA wall suggestive of either hematoma or active infection, small mobile echodensity within the RA-vegetation versus thrombus CT chest cardiac 01/07-moderate diffuse leaflet calcification CT brain 01/07-no acute findings CT abdomen and pelvis 01/06-evolving large rectus sheath hematoma 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 Interestingly, despite his titers he has no obvious epidemiological link to this genus. In speaking with him and in reviewing his records there was no suspicion for endocarditis of the time of his operation in April. He continues to require renal replacement therapy. He is being considered for open heart surgery. RECOMMENDATIONS: Continue doxycycline 100 mg IV every 12 hours Continue ceftriaxone 2 g IV every 24 hours No infectious disease contraindication open heart surgery - at time of surgery please send specimens for endocarditis protocol. At time of surgery suggest removal of his pacemaker in its entirety. No infectious disease contraindication to tunneled dialysis catheter at this time. I would also had a Sylvia catheter placed as I expect the need for IV antibiotics post surgery. Assessment and plan unchanged as compared with 01/14 except as edited above. Monitoring for ongoing therapeutic and potential untoward effect of antibiotic therapy. Dr. Love available over the weekend. I will return on Thursday. Signature: Rohit Olivas MD Pager: [phone] CONSULT PROG Observed: 01/15/2018 Status: COMPLETED Source: [place] 1:30 PM [facility] REPOSITORY HNO ID: [id number] Author: Binu Christian Service: Nephrology Author Type: Physician Type: Consult Progress Note Filed: 01/15/2018 1:41 PM Note Text: Renal Consults F/U January 15, 2018 S: No major events. Remains anuric. Current hospital medications: doxycycline 100 mg in D5W 250 mL Vial-Mate (VIBRAMYCIN) 100 mg INTRAVENOUS q 12 H cefTRIAXone 2 g in D5W 100 mL MB+ (ROCEPHIN) 2 g INTRAVENOUS q 24 H docusate sodium 100 mg cap(s) (COLACE) 100 mg ORAL BID PRN polyethylene glycol 3350 17 g packet (MIRALAX, GLYCOLAX) 17 g ORAL DAILY PRN senna-docusate 8.6-50 mg 1 tablet (SENNA-S) 1 tablet ORAL/FEEDING TUBE BID PRN calcium carbonate 1,000 mg chewable tab(s) (TUMS) 1,000 mg ORAL/FEEDING TUBE BID PRN acetaminophen 650 mg tab(s) (TYLENOL) 650 mg ORAL q 4 H PRN sodium chloride 0.65 % 2 [place] (AYR, OCEAN) 2 [place] EACH NOSTRIL TID PRN fvahvfud-dkze-vepau acid chewable tablet (CENTRUM) 1 tablet ORAL DAILY cholecalciferol 3,000 Units tab(s) (VITAMIN D3) 3,000 Units ORAL DAILY cyanocobalamin 500 mcg tab(s) (VITAMIN B-12) 500 mcg ORAL DAILY thiamine 100 mg tab(s) (VITAMIN B1) 100 mg ORAL DAILY diphenhydrAMINE 25 mg (BENADRYL) 25 mg ORAL q 6 H PRN aspirin, enteric coated 81 mg tab(s) 81 mg ORAL DAILY metoprolol tartrate (short acting) 12.5 mg tab(s) (LOPRESSOR) 12.5 mg ORAL BID tamsulosin ER 0.4 mg cap(s) (FLOMAX) 0.4 mg ORAL DAILY pantoprazole DR 40 mg tab(s) (PROTONIX) 40 mg ORAL BID levothyroxine 200 mcg tab(s) (SYNTHROID) 200 mcg ORAL BEFORE BREAKFAST DAILY atorvastatin 80 mg tab(s) (LIPITOR) 80 mg ORAL AT BEDTIME PHYSICAL EXAM: Patient Vitals for the past 24 hrs: BP Temp Temp src Pulse Resp SpO2 Weight 01/15/18 1220 130/68 - - 66 - - - 01/15/18 1205 146/71 36.7 ?C (98 ?F) Oral 63 18 - - 01/15/18 1100 121/67 36.7 ?C (98.1 ?F) Oral 60 18 95 % - 01/15/18 0700 156/72 36.8 ?C (98.2 ?F) Oral 66 18 92 % - 01/15/18 0500 - - - - - - 104.9 kg (231 lb 4.8 oz) 01/15/18 0219 118/60 37 ?C (98.6 ?F) Oral 68 18 92 % - 01/14/18 2304 131/74 37 ?C (98.6 ?F) Oral 61 18 95 % - 01/14/18 2000 118/67 - - 83 - - - 01/14/18 1855 142/68 37.1 ?C (98.8 ?F) Oral 71 18 95 % - 01/14/18 1449 133/68 37.2 ?C (98.9 ?F) Oral 62 16 97 % - VS: Patient Vitals for the past 4 hrs: BP Pulse Temp Resp SpO2 01/15/18 1220 130/68 66 - - - 01/15/18 1205 146/71 63 36.7 ?C (98 ?F) 18 - 01/15/18 1100 121/67 60 36.7 ?C (98.1 ?F) 18 95 % I/O: Intake/Output Summary (Last 24 hours) at 01/15/18 1331 Last data filed at 01/15/18 1205 Gross per 24 hour Intake 1460 ml Output 0 ml Net 1460 ml Intake/Output Summary (Last 24 hours) at 01/15/18 0659 Last data filed at 01/14/18 1900 Gross per 24 hour Intake 910 ml Output 3500 ml Net -2590 ml General: ?NAD Neck: Trachea midline. No mass palpable Lungs: ?Clear to auscultation, no crackles or wheezing. CV: ?normal, Regular rate and rhythm, + murmur, no rubs. ACCESS: RIJ temp. ?No secretions. Abd: + bowel sounds, no distension. Neuro: no asterixis, no focal deficits. Ext: ?+?edema LABS: Recent Labs 01/15/18 0537 01/14/18 1635 01/14/18 0345 01/13/18 0350 CREAT 4.30* -- 5.69* 4.30* BUN 23 -- 34* 25* NA 135* -- 130* 132* K 4.8 -- 4.6 4.4 CHLOR 98 -- 96* 97 CO2 28 -- 25 27 GLUC 84 -- 79 81 CA 8.2* -- 7.5* 8.1* MG 1.9 -- 2.0 1.9 P 2.7 -- 3.6 2.6* WBC 3.02* 2.72* 3.35* 3.51* HB 6.9* 7.0* 7.0* 7.2* MCV 98.6 97.8 96.0 97.4 PLT 94* 90* 100* 98* IMPRESSION: 62 year old male with PMH including A-fibb, s/p AVR, history of CVA, Fe deficiency anemia and hemolytic anemia presented to [facility] as a transfer from OSH on 12/24. ?Initial presentation to OSH was due to suspected GI bleed. Patient had low Hg however no diagnostic findings on Colonoscopy, EGD or tagged RBC scan. Patient was transferred to [facility] upon worsening of renal function. ? 1. 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 2. Electrolytes ?-Hyponatremia ? 3. Normocytic Anemia ?-Likely multifactorial cause including blood loss, hemolysis as well as acute renal failure ?-No concerning finding on BM bx. Below target. Transfused today. Given acute infection I don't think ESAs may be that effective given infectious proinflammatory process but would start with Aranesp 60 mcg/weed. ? 5. Volume Overload. Edema likely also exacerbated by hypoalbuminemia Plan to exchange catheter for a tunneled one. IHD tomorrow. Thank You for allowing us to participate in his care. Binu Christian MD. [facility]. [phone] Staff. Nephrology and Hypertension. January 15, 2018 1:31 PM CBC AND DIFFERENTIAL Collected: 01/15/2018 Status: F Source: [place] 5:37 AM [facility] REPOSITORY TYPE CODE TESTS RESULT OUT OF REFERENCE UNITS RANGE LAB WBC 3.70-11.00 k/uL Low WBC 3.02 LAB RBC 4.20-6.00 m/uL Low RBC 2.22 LAB HGB 13.0-17.0 g/dL Low Hemoglobin 6.9 LAB HCT 39.0-51.0 % Low Hematocrit 21.9 LAB MCV 80.0-100.0 fL MCV 98.6 LAB MCH 26.0-34.0 pG MCH 31.1 LAB MCHC 30.5-36.0 g/dL MCHC 31.5 LAB RDWCV 11.5-15.0 % RDW-CV High 18.4 LAB PLTCT 150-400 k/uL Low Platelet Count 94 Result Comment: No clot detected. LAB MPV 9.0-12.7 fL MPV 10.2 LAB ANEUT % Neut% 55.9 LAB AANEUT 1.45-7.50 k/uL Abs Neut 1.68 LAB ALYMP % Lymph% 31.5 LAB AALYMP 1.00-4.00 k/uL Abs Low Lymph 0.95 LAB AMONO % Pope% 11.6 LAB AAMONO <0.87 k/uL Abs Pope 0.35 LAB AEOS % Eosin% 0.3 LAB AAEOS <0.46 k/uL Abs Eosin <0.03 LAB ABASO % Baso% 0.7 LAB AABASO <0.11 k/uL Abs Baso <0.03 LAB AUNRBC 0 /100 WBC NRBCs 0.0 LAB ABNRBC <0.01 k/uL Absolute nRBC <0.01 LAB DTYP DTYPE Auto Diff Performed By: #### CBCDIF, BMP, MG1, PHOS #### [facility] [address] [place] [address] [place], [place] [address] BASIC METABOLIC PANL Collected: 01/15/2018 Status: F Source: [place] 5:37 AM [facility] REPOSITORY TYPE CODE TESTS RESULT OUT OF REFERENCE UNITS RANGE LAB GLU 74-99 mg/dL Glucose 84 Result Comment: The [place] [employer] (ADA) provides guidance for cutoff values for fasting glucose and random glucose. The ADA defines fasting as no caloric intake for at least 8 hours. Fas ting plasma glucose results between 100 to 125 mg/dL indicate increased risk for diabetes (prediabetes). Fasting plasma glucose results greater than or equal to 126 mg/dL meet the criteria for diagnosis of diabetes. In the absence of unequivocal hyperglycemia, results should be confirmed by repeat testing. In a patient with classic symptoms of hyperglycemia or hyperglycemic crisis, random plasma glucose results greater than or equal to 200 mg/dL meet the criteria for diagnosis of diabetes. Reference: Standards of Medical Care in Diabetes 2016, [place] [employer] Association. Diabetes Care. 2016.39(Suppl 1). LAB BUN 9-24 mg/dL BUN 23 LAB CRET 0.73-1.22 mg/dL Creatinine High 4.30 LAB NA 136-144 mmol/L Low Sodium 135 LAB K 3.7-5.1 mmol/L Potassium 4.8 LAB CL 97-105 mmol/L Chloride 98 LAB CO2 22-30 mmol/L CO2 28 LAB AGAP 9-18 mmol/L Anion Gap 9 LAB CA 8.5-10.2 mg/dL Low Calcium, Total 8.2 LAB GFRAA eGFR- Amer. 17 LAB GFRNAA . eGFR-All Other Races 14 Result Comment: eGFR (Estimated GFR) Units of measure: mL/min/1.73 meters squared eGFR is derived from the reexpressed MDRD Study equation using the following parameters: serum creatinine, age, gender and race. The creatinine assay has been calibrated to be traceable to IDMS. An eGFR <60 mL/min/1.73m2 for >3 months is consistent with chronic kidney disease. Refer to KDOQI guidelines for clinical interpretation. In patients with unstable renal function, e.g. those with acute kidney injury, the eGFR may not accurately reflect actual GFR. Performed By: #### CBCDIF, BMP, MG1, PHOS #### [facility] [employer] [address] [id number] MAGNESIUM Collected: 01/15/2018 Status: F Source: [place] 5:37 AM [facility] REPOSITORY TYPE CODE TESTS RESULT OUT OF REFERENCE UNITS RANGE LAB MG 1.7-2.3 mg/dL Magnesium 1.9 Performed By: #### CBCDIF, BMP, MG1, PHOS #### [facility] [employer] [address] [address] PHOSPHORUS Collected: 01/15/2018 Status: F Source: [place] 5:37 AM [facility] REPOSITORY TYPE CODE TESTS RESULT OUT OF REFERENCE UNITS RANGE LAB PHOS 2.7-4.8 mg/dL Phosphorus 2.7 Performed By: #### CBCDIF, BMP, MG1, PHOS #### [facility] [address] [place] [address] CBC Collected: 01/14/2018 Status: F Source: [place] 4:35 PM [facility] REPOSITORY TYPE CODE TESTS RESULT OUT OF REFERENCE UNITS RANGE LAB WBC 3.70-11.00 k/uL Low WBC 2.72 LAB RBC 4.20-6.00 m/uL Low RBC 2.24 LAB HGB 13.0-17.0 g/dL Low Hemoglobin 7.0 LAB HCT 39.0-51.0 % Low Hematocrit 21.9 LAB MCV 80.0-100.0 fL MCV 97.8 LAB MCH 26.0-34.0 pG MCH 31.3 LAB MCHC 30.5-36.0 g/dL MCHC 32.0 LAB RDWCV 11.5-15.0 % RDW-CV High 18.2 LAB PLTCT 150-400 k/uL Low Platelet Count 90 Result Comment: No clot detected. LAB MPV 9.0-12.7 fL MPV 10.2 LAB ABSNUC <0.01 k/uL Absolute nRBC <0.01 Performed By: #### CBC #### [facility] [address] [place], [place] [address] CONSULT PROG Observed: 01/14/2018 Status: COMPLETED Source: [place]AN[place] 3:32 PM [facility] REPOSITORY HNO ID: [id number] Author: Janae Cao Service: Cardiac Surgery Author Type: Nurse Practitioner Type: Consult Progress Note Filed: 01/14/2018 3:44 PM Note Text: [facility] CONSULT PROGRESS NOTE Frank Rivera [id number] CONSULTING SERVICE: Cardiothoracic Surgery PRIMARY SERVICE: Cardiology: Clinical TIME CLOCK MECHANIC/PA service PLAN: NEURO CLEARANCE obtained; No noted AVM ; intracranial aneurysm Dominant right vertebral artery-with good flow into the basilar artery? From neurology standpoint okay to proceed with CT surgery. OPERATIVE TIMING TBD. SUBJECTIVE: INTERVAL HISTORY: Clinically stable. No acute events. OBJECTIVE: MEDICATIONS: Current hospital medications: iv contrast (radiology procedure) INTRAVENOUS DIRECTED PRN doxycycline 100 mg in D5W 250 mL Vial-Mate (VIBRAMYCIN) 100 mg INTRAVENOUS q 12 H cefTRIAXone 2 g in D5W 100 mL MB+ (ROCEPHIN) 2 g INTRAVENOUS q 24 H docusate sodium 100 mg cap(s) (COLACE) 100 mg ORAL BID PRN polyethylene glycol 3350 17 g packet (MIRALAX, GLYCOLAX) 17 g ORAL DAILY PRN senna-docusate 8.6-50 mg 1 tablet (SENNA-S) 1 tablet ORAL/FEEDING TUBE BID PRN calcium carbonate 1,000 mg chewable tab(s) (TUMS) 1,000 mg ORAL/FEEDING TUBE BID PRN acetaminophen 650 mg tab(s) (TYLENOL) 650 mg ORAL q 4 H PRN sodium chloride 0.65 % 2 [place] (AYR, OCEAN) 2 [place] EACH NOSTRIL TID PRN zfiehazr-ncvx-zrxfj acid chewable tablet (CENTRUM) 1 tablet ORAL DAILY cholecalciferol 3,000 Units tab(s) (VITAMIN D3) 3,000 Units ORAL DAILY cyanocobalamin 500 mcg tab(s) (VITAMIN B-12) 500 mcg ORAL DAILY thiamine 100 mg tab(s) (VITAMIN B1) 100 mg ORAL DAILY diphenhydrAMINE 25 mg (BENADRYL) 25 mg ORAL q 6 H PRN aspirin, enteric coated 81 mg tab(s) 81 mg ORAL DAILY metoprolol tartrate (short acting) 12.5 mg tab(s) (LOPRESSOR) 12.5 mg ORAL BID tamsulosin ER 0.4 mg cap(s) (FLOMAX) 0.4 mg ORAL DAILY pantoprazole DR 40 mg tab(s) (PROTONIX) 40 mg ORAL BID levothyroxine 200 mcg tab(s) (SYNTHROID) 200 mcg ORAL BEFORE BREAKFAST DAILY atorvastatin 80 mg tab(s) (LIPITOR) 80 mg ORAL AT BEDTIME PHYSICAL EXAM: 01/14/18 0345 01/14/18 0600 01/14/18 1240 01/14/18 1449 BP: 147/78 144/67 133/68 Pulse: 86 68 62 Resp: Temp: 37.4 ?C (99.4 ?F) 36.6 ?C (97.9 ?F) 37.2 ?C (98.9 ?F) TempSrc: Oral Oral Oral SpO2: 93% 96% 97% Weight: 107.2 kg (236 lb 6.4 oz) Height: PHYSICAL EXAMINATION General: Alert and oriented, no distress, pleasant and cooperative. Neck: RIJ catheter Heart: Regular, normal S1 and S2, no murmurs, rubs, or gallops Lungs: Clear to auscultation bilaterally Abdomen: Benign Extremities: Feet/ankles +1 edema, posterior tibial pulses full and symmetrical Intake/Output Summary (Last 24 hours) at 01/14/18 1533 Last data filed at 01/14/18 1400 Gross per 24 hour Intake 610 ml Output 3500 ml Net -2890 ml DATA: Laboratory: Recent Labs 01/14/18 0345 01/13/18 0350 01/12/18 0439 WBC 3.35* 3.51* 4.33 HB 7.0* 7.2* 7.4* HCT 21.8* 22.3* 23.1* PLT 100* 98* 93* NA 130* 132* 131* K 4.6 4.4 5.3* CHLOR 96* 97 97 CO2 25 27 21* BUN 34* 25* 40* CREAT 5.69* 4.30* 6.05* GLUC 79 81 82 SIGNATURE: Janae Cao APRN.DIRECTOR OF INDUSTRIAL RELATIONS PAGER: [phone] DATE of SERVICE: 01/14/2018 TIME of SERVICE: 3:43 PM PROGRESS Observed: 01/14/2018 Status: COMPLETED Source: [place] 2:55 PM [facility] REPOSITORY HNO ID: [id number] Author: Kristina Andrea) Aj Service: Cardiovascular Medicine Author Type: Nurse Practitioner Type: Progress Notes Filed: 01/14/2018 2:56 PM Note Text: [facility] CARDIOVASCULAR MEDICINE PROGRESS NOTE Frnak Rivera [id number] PRIMARY SERVICE: Hvi Clinical General Agent/Pa HOSPITAL DAY: # 21 INTERVAL HISTORY IHD this am. Took off 3.5L per pt H/H lower but will recheck post HD Rhythm: SR Intake/Output Summary (Last 24 hours) at 01/14/18 1455 Last data filed at 01/14/18 1400 Gross per 24 hour Intake 610 ml Output 3500 ml Net -2890 ml EKG: Most recent reviewed TELE: most recent recordings reviewed CXR: most recent image reviewed, most recent report reviewed Echocardiogram: most recent report reviewed PHYSICAL EXAM: BP 133/68 Pulse 62 Temp 37.2 ?C (98.9 ?F) (Oral) Resp 16 Ht 193 cm (6' 4) Wt 107.2 kg (236 lb 6.4 oz) SpO2 97% BMI 28.78 kg/m? Neuro: AANDO x 3 moves all extremities with no apparent weakness CV: no jugular venous distention RRR without gallop, or rubs. No ectopy. + systolic/diastolic murmer Resp: clear to auscultation bilaterally Abd: +BS x4 Skin: skin color, texture, turgor normal, no rashes or lesions Ext: no edema MEDICATIONS Current hospital medications: iv contrast (radiology procedure) INTRAVENOUS DIRECTED PRN doxycycline 100 mg in D5W 250 mL Vial-Mate (VIBRAMYCIN) 100 mg INTRAVENOUS q 12 H cefTRIAXone 2 g in D5W 100 mL MB+ (ROCEPHIN) 2 g INTRAVENOUS q 24 H docusate sodium 100 mg cap(s) (COLACE) 100 mg ORAL BID PRN polyethylene glycol 3350 17 g packet (MIRALAX, GLYCOLAX) 17 g ORAL DAILY PRN senna-docusate 8.6-50 mg 1 tablet (SENNA-S) 1 tablet ORAL/FEEDING TUBE BID PRN calcium carbonate 1,000 mg chewable tab(s) (TUMS) 1,000 mg ORAL/FEEDING TUBE BID PRN acetaminophen 650 mg tab(s) (TYLENOL) 650 mg ORAL q 4 H PRN sodium chloride 0.65 % 2 [place] (AYR, OCEAN) 2 [place] EACH NOSTRIL TID PRN jnmfarcw-[id number] acid chewable tablet (CENTRUM) 1 tablet ORAL DAILY cholecalciferol 3,000 Units tab(s) (VITAMIN D3) 3,000 Units ORAL DAILY cyanocobalamin 500 mcg tab(s) (VITAMIN B-12) 500 mcg ORAL DAILY thiamine 100 mg tab(s) (VITAMIN B1) 100 mg ORAL DAILY diphenhydrAMINE 25 mg (BENADRYL) 25 mg ORAL q 6 H PRN aspirin, enteric coated 81 mg tab(s) 81 mg ORAL DAILY metoprolol tartrate (short acting) 12.5 mg tab(s) (LOPRESSOR) 12.5 mg ORAL BID tamsulosin ER 0.4 mg cap(s) (FLOMAX) 0.4 mg ORAL DAILY pantoprazole DR 40 mg tab(s) (PROTONIX) 40 mg ORAL BID levothyroxine 200 mcg tab(s) (SYNTHROID) 200 mcg ORAL BEFORE BREAKFAST DAILY atorvastatin 80 mg tab(s) (LIPITOR) 80 mg ORAL AT BEDTIME DATA Recent Labs 01/14/1834401/13/1834901/12/18438 WBC 3.35* 3.51* 4.33 HB 7.0* 7.2* 7.4* HCT 21.8* 22.3* 23.1* PLT 100* 98* 93* Recent Labs 01/14/1834401/13/1834901/12/189 NA 130* 132* 131* K 4.6 4.4 5.3* CO2 25 27 21* BUN 34* 25* 40* CREAT 5.69* 4.30* 6.05* GLUC 79 81 82 MG 2.0 1.9 2.0 ASSESSMENT AND PLAN Presentation/Indication for admission/procedure: C3 NEPHROPATHY;IRINA Admit date: 12/24/2017 LVEF: 60 RVEF: Low Nl Cards: [facility] Cath: PMH/PSH: Atrial fibrillation on apixaban 5mg BID on metoprolol 12.5mg BID HTN Hypothyroidism on levothyroxine 200mcg qdaily Atrial Fibrillation s/p PPM and DCCV in 04/2017 Aortic Stenosis s/p bioprosthetic AVR (27mm [facility] Richi Trifecta pericardial valve) and RUDY ligation 05/07/17 Sick sinus syndrome s/p pacemaker placement 05/13/17 Hx of CVA with residual dysphagia Chronic Iron Deficiency Anemia (also B12 deficient) Hx of Min-En-Y bypass in 1995 Hx of Upper GI bleeds (1997, 2014, 2015) Procedure/OR performed (including complications): Echocardiogram CHANDRAKANT CT C/A/P CT brain Brief Hospital Course/Narrative: Mr. Frank Rivera is a 62y/o gentleman with atrial fibrillation and SSS s/p PPM, HTN, hypothyroidism, aortic stenosis s/p AVR and RUDY, history of Min-en-Y bypass c/b recurrent GIB, ADRIANNE, B12 deficiency, who presents to [facility] on 12/24/17 with fatigue and shortness of breath who was transferred from OSH with IRINA and renal biopsy concerning for C3 nephropathy. MICU transfer to initiate dialysis secondary to volume overload. CHANDRAKANT 01/01 showed AV vegitation. Transfered to [facility] 01/13 Issues to communicate: - Bartonella positive, on IV doxycycline and ceftriaxone - still not producing urine, IHD 01/14, was put on HD -- for IRINA (no hx of CKD) - Hgb, tx if < 7. 01/14 - recheck post IHD - CTS - Dr. Cuauhtemoc Parker Neuro cleared pt for [facility] Problem Subacute Bacterial Endocarditis History: Bartonella henselae Assessment: On rocephin and doxy Plan: Continue ABx per ID, CTS Anemia History: Hx FE, B12 deficiencies, UGI bleeds, Heyde's syndrome Assessment: BMBx - Normocytic anemia with anisocytosis and no increased schistocytes or spherocytes. Thrombocytopenia. Iron studies suggest anmeia of chronic disease Plan: Monitor. Transfuse for Hgb <7. Recheck H/H 01/14 after IHD Pancytopenia (Hcc) History: Hx anemia, FE, B12 Assessment: BMBX Normocytic anemia with anisocytosis Plan: Hematology signed off. Atrial Fibrillation (Hcc) History: Hx post op AF Assessment: S/P DCC 06/07. In SR Plan: Continue Beta Magdy Irina (Acute Kidney Injury) (Hcc) History: IRINA. No Hx CKD Assessment: C3 nephropathy Plan: IHD per nephrology Htn (Hypertension) History: on hydralazine, lopressor at home Assessment: Currently well controlled Plan: Continue lopressor Rectus Sheath Hematoma History: Pt with hematoma found on CT. Had renal Bx at OSH? Assessment: Stable by repeat CT Plan: Monitor Cva, Old, Dysphagia History: Remote Assessment: Mild dysphagia Plan: Neuro cleared pt for [facility] Malnutrition of Moderate Degree (Hcc) History: Per nutrition Assessment: In the context of Acute Illness or Injury based on: Insufficient Energy Intake: <75% for >7 days Subcutaneous Fat Loss: Mild Loss Muscle Loss Mild Loss Plan: Intervention: 1) Continue Regular diet 2) Beneprotein TID (75kcal, 18g ptn) 3) Continue Bariatric Vitamin regimen 4) Maintain normal bowel regimen 5) Please document accurate intakes of meals and supplements to further assess nutritional status. Thank you. Goals: pt to meet > 75% of est needs prior to d/c. Case discussed with Shaun Robledo Cardiovascular Medicine Nurse Practitioner Pager [phone] (please see below for after hours communication) 01/14/2018 2:55 PM For communication after 5 pm on weekdays and after 12 pm on weekends, please page the following: - Clinical Cardiology patients on all floors: page [phone] - Other Cardiology patients on J5 and J6: page [phone] - Other Cardiology patients on J7 and J8: page [phone] CONSULT PROG Observed: 01/14/2018 Status: COMPLETED Source: PLANO 2:50 PM [facility] REPOSITORY O ID: [id number] Author: Rohit Olivas Service: Infectious Disease Author Type: Physician Type: Consult Progress Note Filed: 01/14/2018 2:52 PM Note Text: INFECTIOUS DISEASE CONSULT SERVICE PROGRESS NOTE Patient Name: Frank Rivera Interval Events: Course reviewed OR deferred today-no date as of yet Feels the same No fevers or chills Tolerating antibiotics In addition to those reviewed and documented in the HPI all other systems reviewed and were negative. MEDICATIONS Medications reviewed. Current hospital medications: iv contrast (radiology procedure) INTRAVENOUS DIRECTED PRN doxycycline 100 mg in D5W 250 mL Vial-Mate (VIBRAMYCIN) 100 mg INTRAVENOUS q 12 H cefTRIAXone 2 g in D5W 100 mL MB+ (ROCEPHIN) 2 g INTRAVENOUS q 24 H docusate sodium 100 mg cap(s) (COLACE) 100 mg ORAL BID PRN polyethylene glycol 3350 17 g packet (MIRALAX, GLYCOLAX) 17 g ORAL DAILY PRN senna-docusate 8.6-50 mg 1 tablet (SENNA-S) 1 tablet ORAL/FEEDING TUBE BID PRN calcium carbonate 1,000 mg chewable tab(s) (TUMS) 1,000 mg ORAL/FEEDING TUBE BID PRN acetaminophen 650 mg tab(s) (TYLENOL) 650 mg ORAL q 4 H PRN sodium chloride 0.65 % 2 [place] (AYR, OCEAN) 2 [place] EACH NOSTRIL TID PRN jkxevduq-usco-edaot acid chewable tablet (CENTRUM) 1 tablet ORAL DAILY cholecalciferol 3,000 Units tab(s) (VITAMIN D3) 3,000 Units ORAL DAILY cyanocobalamin 500 mcg tab(s) (VITAMIN B-12) 500 mcg ORAL DAILY thiamine 100 mg tab(s) (VITAMIN B1) 100 mg ORAL DAILY diphenhydrAMINE 25 mg (BENADRYL) 25 mg ORAL q 6 H PRN aspirin, enteric coated 81 mg tab(s) 81 mg ORAL DAILY metoprolol tartrate (short acting) 12.5 mg tab(s) (LOPRESSOR) 12.5 mg ORAL BID tamsulosin ER 0.4 mg cap(s) (FLOMAX) 0.4 mg ORAL DAILY pantoprazole DR 40 mg tab(s) (PROTONIX) 40 mg ORAL BID levothyroxine 200 mcg tab(s) (SYNTHROID) 200 mcg ORAL BEFORE BREAKFAST DAILY atorvastatin 80 mg tab(s) (LIPITOR) 80 mg ORAL AT BEDTIME Examination: BP 144/67 Pulse 62 Temp 37.2 ?C (98.9 ?F) (Oral) Resp 16 Ht 193 cm (6' 4) Wt 107.2 kg (236 lb 6.4 oz) SpO2 97% BMI 28.78 kg/m? Temp (24hrs), Av.9 ?C (98.5 ?F), Min:36.6 ?C (97.9 ?F), Max:37.4 ?C (99.4 ?F) General appearance: Resting in bed, no distress, visit are present Skin: no rash Head: neg Eyes: anicteric Oropharynx: neg Neck: right ij trialysis catheter Back: not examined Lungs: CTA Heart: rrnl Abdomen: soft Extremities: Bilateral lower extremity edema - improved, some petechiae - evolving Musculoskeletal: Negative Peripheral pulses: radial pulses palpable Exam unchanged as compared with 01/13 other than as edited above. Lab, Microbiology and Imaging Data: Personally reviewed imaging studies, laboratory results, and microbiology results. ASSESSMENT: 62-year-old with multiple medical problems including but not limited to atrial fibrillation, hypertension, and aortic stenosis status post aortic valve replacement in April 2017 with a permanent pacemaker placed shortly thereafter was transferred to our hospital on 12/24 for further evaluation of an acute kidney injury. He initially presented to an outside hospital on 12/19 for further evaluation of a new anemia and renal failure after presenting to his primary care physician with fatigue and shortness of breath. He was treated empirically with prednisone for a glomerular nephritis and transferred. 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 Positive serologies for antineutrophil cytoplasmic antibodies and myeloperoxidase. He is requiring renal replacement therapy. Notable aspects of his workup thus far from infectious disease perspective has included: 2 blood cultures 12/25-no growth to date Bartonella serologies-IgG for Bartonella henselae greater than 1:1024, IgG for Bartonella amato 1:1024 Transesophageal echocardiogram 01/01-2-3+ TR, 3+ AI, thickening of the aorto-mitral curtain and posterior LA wall suggestive of either hematoma or active infection, small mobile echodensity within the RA-vegetation versus thrombus CT chest cardiac 01/07-moderate diffuse leaflet calcification CT brain 01/07-no acute findings CT abdomen and pelvis 01/06-evolving large rectus sheath hematoma 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 Interestingly, despite his titers he has no obvious epidemiological link to this genus. In speaking with him and in reviewing his records there was no suspicion for endocarditis of the time of his operation in April. He continues to require renal replacement therapy. He is being considered for open heart surgery. RECOMMENDATIONS: Continue doxycycline 100 mg IV every 12 hours Continue ceftriaxone 2 g IV every 24 hours No infectious disease contraindication open heart surgery - at time of surgery please send specimens for endocarditis protocol. At time of surgery suggest removal of his pacemaker in its entirety. Just prior to surgery would remove his current trialysis catheter. Assessment and plan unchanged as compared with 01/13 except as edited above. Monitoring for ongoing therapeutic and potential untoward effect of antibiotic therapy. Following Signature: Rohit Olivas MD Pager: [phone] CONSULT PROG Observed: 01/14/2018 Status: COMPLETED Source: PLANO 1:11 PM [facility] REPOSITORY HNO ID: [id number] Author: Binu Christian Service: Nephrology Author Type: Physician Type: Consult Progress Note Filed: 01/14/2018 1:14 PM Note Text: Renal Consults F/U January 14, 2018 S: No major events. Remains anuric. Seen on IHD. Current hospital medications: iv contrast (radiology procedure) INTRAVENOUS DIRECTED PRN doxycycline 100 mg in D5W 250 mL Vial-Mate (VIBRAMYCIN) 100 mg INTRAVENOUS q 12 H cefTRIAXone 2 g in D5W 100 mL MB+ (ROCEPHIN) 2 g INTRAVENOUS q 24 H docusate sodium 100 mg cap(s) (COLACE) 100 mg ORAL BID PRN polyethylene glycol 3350 17 g packet (MIRALAX, GLYCOLAX) 17 g ORAL DAILY PRN senna-docusate 8.6-50 mg 1 tablet (SENNA-S) 1 tablet ORAL/FEEDING TUBE BID PRN calcium carbonate 1,000 mg chewable tab(s) (TUMS) 1,000 mg ORAL/FEEDING TUBE BID PRN acetaminophen 650 mg tab(s) (TYLENOL) 650 mg ORAL q 4 H PRN sodium chloride 0.65 % 2 [place] (AYR, OCEAN) 2 [place] EACH NOSTRIL TID PRN jlahpxhw-fsed-veuzs acid chewable tablet (CENTRUM) 1 tablet ORAL DAILY cholecalciferol 3,000 Units tab(s) (VITAMIN D3) 3,000 Units ORAL DAILY cyanocobalamin 500 mcg tab(s) (VITAMIN B-12) 500 mcg ORAL DAILY thiamine 100 mg tab(s) (VITAMIN B1) 100 mg ORAL DAILY diphenhydrAMINE 25 mg (BENADRYL) 25 mg ORAL q 6 H PRN aspirin, enteric coated 81 mg tab(s) 81 mg ORAL DAILY metoprolol tartrate (short acting) 12.5 mg tab(s) (LOPRESSOR) 12.5 mg ORAL BID tamsulosin ER 0.4 mg cap(s) (FLOMAX) 0.4 mg ORAL DAILY pantoprazole DR 40 mg tab(s) (PROTONIX) 40 mg ORAL BID levothyroxine 200 mcg tab(s) (SYNTHROID) 200 mcg ORAL BEFORE BREAKFAST DAILY atorvastatin 80 mg tab(s) (LIPITOR) 80 mg ORAL AT BEDTIME PHYSICAL EXAM: Patient Vitals for the past 24 hrs: BP Temp Temp src Pulse Resp SpO2 Weight 01/14/18 1240 144/67 36.6 ?C (97.9 ?F) Oral 68 18 96 % - 01/14/18 0600 - - - - - - 107.2 kg (236 lb 6.4 oz) 01/14/18 0345 147/78 37.4 ?C (99.4 ?F) Oral 86 18 93 % - 01/13/18 2257 162/76 37.1 ?C (98.7 ?F) Oral 63 18 100 % - 01/13/18 2107 144/71 - - 68 - - - 01/13/18 1915 176/73 36.7 ?C (98 ?F) Oral 70 18 100 % - 01/13/18 1518 143/70 36.8 ?C (98.2 ?F) Oral 65 18 98 % - VS: Patient Vitals for the past 4 hrs: BP Pulse Temp Resp SpO2 01/14/18 1240 144/67 68 36.6 ?C (97.9 ?F) 18 96 % I/O: Intake/Output Summary (Last 24 hours) at 01/14/18 1311 Last data filed at 01/14/18 1100 Gross per 24 hour Intake 250 ml Output 3500 ml Net -3250 ml Intake/Output Summary (Last 24 hours) at 01/14/18 0659 Last data filed at 01/13/18 2207 Gross per 24 hour Intake 660 ml Output 0 ml Net 660 ml General: ?NAD Neck: Trachea midline. No mass palpable Lungs: ?Clear to auscultation, no crackles or wheezing. CV: ?normal, Regular rate and rhythm, + murmur, no rubs. ACCESS: RIJ temp. ?No secretions. Abd: + bowel sounds, no distension. Neuro: no asterixis, no focal deficits. Ext: ?+?edema LABS: Recent Labs 01/14/18 0345 01/13/18 0350 01/12/18 0439 CREAT 5.69* 4.30* 6.05* BUN 34* 25* 40* NA 130* 132* 131* K 4.6 4.4 5.3* CHLOR 96* 97 97 CO2 25 27 21* GLUC 79 81 82 CA 7.5* 8.1* 8.2* MG 2.0 1.9 2.0 P 3.6 2.6* 3.2 WBC 3.35* 3.51* 4.33 HB 7.0* 7.2* 7.4* MCV 96.0 97.4 96.3 PLT 100* 98* 93* IMPRESSION: 62 year old male with PMH including A-fibb, s/p AVR, history of CVA, Fe deficiency anemia and hemolytic anemia presented to [facility] as a transfer from OSH on 12/24. ?Initial presentation to OSH was due to suspected GI bleed. Patient had low Hg however no diagnostic findings on Colonoscopy, EGD or tagged RBC scan. Patient was transferred to [facility] upon worsening of renal function. ? 1. 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 2. Electrolytes ?-Hyponatremia ? 3. Normocytic Anemia ?-Likely multifactorial cause including blood loss, hemolysis as well as acute renal failure ?-No concerning finding on BM bx. Hematology has signed off ? 5. Volume Overload. Edema likely also exacerbated by hypoalbuminemia Seen on IHD. Given the fact that surgery is not going to be done in the next 1-2 days, we should remove temp dialysis catheter and plan for tunneled for next session on Thursday. Thank You for allowing us to participate in his care. Binu Christian MD. [facility] [phone] Staff. Nephrology and Hypertension. January 14, 2018 1:11 PM CONSULT PROG Observed: 01/14/2018 Status: COMPLETED Source: PLANO 7:31 AM [facility] REPOSITORY HNO ID: [id number] Author: Nardadamián Gong Service: Endocrinology Author Type: Physician Type: Consult Progress Note Filed: 01/14/2018 7:14 PM Note Text: ENDOCRINOLOGY CONSULT PROGRESS NOTE SERVICE DATE: 01/14/2018 SERVICE TIME: 7:32 AM Subjective INTERVAL HPI: - no acute events overnight Current hospital medications: iv contrast (radiology procedure) INTRAVENOUS DIRECTED PRN doxycycline 100 mg in D5W 250 mL Vial-Mate (VIBRAMYCIN) 100 mg INTRAVENOUS q 12 H cefTRIAXone 2 g in D5W 100 mL MB+ (ROCEPHIN) 2 g INTRAVENOUS q 24 H docusate sodium 100 mg cap(s) (COLACE) 100 mg ORAL BID PRN polyethylene glycol 3350 17 g packet (MIRALAX, GLYCOLAX) 17 g ORAL DAILY PRN senna-docusate 8.6-50 mg 1 tablet (SENNA-S) 1 tablet ORAL/FEEDING TUBE BID PRN calcium carbonate 1,000 mg chewable tab(s) (TUMS) 1,000 mg ORAL/FEEDING TUBE BID PRN acetaminophen 650 mg tab(s) (TYLENOL) 650 mg ORAL q 4 H PRN sodium chloride 0.65 % 2 [place] (AYR, OCEAN) 2 [place] EACH NOSTRIL TID PRN giiokspg-evzg-qhnbl acid chewable tablet (CENTRUM) 1 tablet ORAL DAILY cholecalciferol 3,000 Units tab(s) (VITAMIN D3) 3,000 Units ORAL DAILY cyanocobalamin 500 mcg tab(s) (VITAMIN B-12) 500 mcg ORAL DAILY thiamine 100 mg tab(s) (VITAMIN B1) 100 mg ORAL DAILY diphenhydrAMINE 25 mg (BENADRYL) 25 mg ORAL q 6 H PRN aspirin, enteric coated 81 mg tab(s) 81 mg ORAL DAILY metoprolol tartrate (short acting) 12.5 mg tab(s) (LOPRESSOR) 12.5 mg ORAL BID tamsulosin ER 0.4 mg cap(s) (FLOMAX) 0.4 mg ORAL DAILY pantoprazole DR 40 mg tab(s) (PROTONIX) 40 mg ORAL BID levothyroxine 200 mcg tab(s) (SYNTHROID) 200 mcg ORAL BEFORE BREAKFAST DAILY atorvastatin 80 mg tab(s) (LIPITOR) 80 mg ORAL AT BEDTIME Objective PHYSICAL EXAM: GENERAL: in no distress and oriented x 3 Heart RRR with normal S1 and S2, no murmurs, no gallops, no JVD appreciated Lungs clear to auscultation Abdomen bowel sounds normoactive, no bruits, soft, non-tender, non-distended, without organomegaly or palpable masses, no tenderness to palpation EXTREMITIES: No clubbing, no edema, no cyanosis and normal nails BP 147/78 Pulse 86 Temp (Src) 99.4 (Oral) Resp 18 Ht 6' 4 (1.93m) Wt 236 lb 6.4 oz (107.2kg) SpO2 93% BMI 28.79 kg/(m2). 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 Endocrinology consulted for elevated TSH to 28.12. ? Pt w/ hypothyroidism on synthroid for 10-12 years. No recent changes to synthroid dose. Pt has been asymptomatic. Last thyroid labs (04/20/2017): TSH 3.366, free T4 1.21. On review of MAR, pt's PPI and iron-containing multivitamin have been given at the same time as the levothyroxine. ? - please give levothyroxine on empty stomach, 2 hrs before or after PPI and multivitamin - free T4 wnl so elevated TSH likely due to poor absorption - recheck thyroid labs in one week ? Case to be discussed with attending staff, addendum to follow. Please call [facility] (found on the [facility] schedule online) after 5 pm. ? Yanet Gudino MD, PGY-1 Pager: [phone] January 13, 2018 SIGNATURE: Yanet Gudino MD PATIENT NAME: Frank Rivera DATE: January 14, 2018 TIME: 7:32 AM PAGER: [phone] STAFF PHYSICIAN NOTE OF PERSONAL INVOLVEMENT IN CARE ?? I personally interviewed and examined the patient, I reviewed the progress note obtained and documented by the resident and I personally participated in the hernandez components. I have discussed the case and management of the patient's care. The following comments revise or confirm relevant hernandez components of their note. ?? IMPRESSION/PLAN: This is a 62 year old male with extensive cardiac history currently undergoing evaluation for open heart AV replacement procedure 2/ Bartonella endocarditis Endocrinology has been consulted for management of hypothyroidism Currently on Synthroid 200 mcg daily, which is his home dose Recent TSH was elevated, free T3 and T4 were low He has been getting Synthroid with PPI and multi vitamin since the time of this hospitalization, which is likely interfering with absorption Current synthroid dose, this needs to be given in the morning 1 hour before breakfast and 2 hour apart from Calcium, iron and PPIs. Recheck TFTs in 1 week ? Will follow ?? SIGNATURE:Narda Gong MD 01/14/18 BASIC METABOLIC PANL Collected: 01/14/2018 Status: F Source: [place] 3:45 AM [facility] REPOSITORY TYPE CODE TESTS RESULT OUT OF REFERENCE UNITS RANGE LAB GLU 74-99 mg/dL Glucose 79 Result Comment: The [place] Diabetes [employer] (ADA) provides guidance for cutoff values for fasting glucose and random glucose. The ADA defines fasting as no caloric intake for at least 8 hours. Fas ting plasma glucose results between 100 to 125 mg/dL indicate increased risk for diabetes (prediabetes). Fasting plasma glucose results greater than or equal to 126 mg/dL meet the criteria for diagnosis of diabetes. In the absence of unequivocal hyperglycemia, results should be confirmed by repeat testing. In a patient with classic symptoms of hyperglycemia or hyperglycemic crisis, random plasma glucose results greater than or equal to 200 mg/dL meet the criteria for diagnosis of diabetes. Reference: Standards of Medical Care in Diabetes 2016, [place] Diabetes Association. Diabetes Care. 2016.39(Suppl 1). LAB BUN 9-24 mg/dL BUN High 34 LAB CRET 0.73-1.22 mg/dL Creatinine High 5.69 LAB NA 136-144 mmol/L Low Sodium 130 LAB K 3.7-5.1 mmol/L Potassium 4.6 LAB CL 97-105 mmol/L Low Chloride 96 LAB CO2 22-30 mmol/L CO2 25 LAB AGAP 9-18 mmol/L Anion Gap 9 LAB CA 8.5-10.2 mg/dL Low Calcium, Total 7.5 LAB GFRAA eGFR- Amer. 12 LAB GFRNAA . eGFR-All Other Races 10 Result Comment: eGFR (Estimated GFR) Units of measure: mL/min/1.73 meters squared eGFR is derived from the reexpressed MDRD Study equation using the following parameters: serum creatinine, age, gender and race. The creatinine assay has been calibrated to be traceable to IDMS. An eGFR <60 mL/min/1.73m2 for >3 months is consistent with chronic kidney disease. Refer to KDOQI guidelines for clinical interpretation. In patients with unstable renal function, e.g. those with acute kidney injury, the eGFR may not accurately reflect actual GFR. Performed By: #### BMP, MG1, PHOS, CBCDIF #### [facility] [employer] [address] [address] MAGNESIUM Collected: 01/14/2018 Status: F Source: [place] 3:45 AM [facility] REPOSITORY TYPE CODE TESTS RESULT OUT OF REFERENCE UNITS RANGE LAB MG 1.7-2.3 mg/dL Magnesium 2.0 Performed By: #### BMP, MG1, PHOS, CBCDIF #### [facility] [employer] [address] [place], [place] [address] PHOSPHORUS Collected: 01/14/2018 Status: F Source: [place] 3:45 AM [facility] REPOSITORY TYPE CODE TESTS RESULT OUT OF REFERENCE UNITS RANGE LAB PHOS 2.7-4.8 mg/dL Phosphorus 3.6 Performed By: #### BMP, MG1, PHOS, CBCDIF #### [facility] [employer] [address] [place], [place] [address] CBC AND DIFFERENTIAL Collected: 01/14/2018 Status: F Source: [place] 3:45 AM [facility] REPOSITORY TYPE CODE TESTS RESULT OUT OF REFERENCE UNITS RANGE LAB WBC 3.70-11.00 k/uL Low WBC 3.35 LAB RBC 4.20-6.00 m/uL Low RBC 2.27 LAB HGB 13.0-17.0 g/dL Low Hemoglobin 7.0 LAB HCT 39.0-51.0 % Low Hematocrit 21.8 LAB MCV 80.0-100.0 fL MCV 96.0 LAB MCH 26.0-34.0 pG MCH 30.8 LAB MCHC 30.5-36.0 g/dL MCHC 32.1 LAB RDWCV 11.5-15.0 % RDW-CV High 18.1 LAB PLTCT 150-400 k/uL Low Platelet Count 100 Result Comment: No clot detected. LAB MPV 9.0-12.7 fL MPV 10.2 LAB ANEUT % Neut% 73.0 LAB AANEUT 1.45-7.50 k/uL Abs Neut 2.45 LAB ALYMP % Lymph% 21.0 LAB AALYMP 1.00-4.00 k/uL Abs Lymph 0.70 Low LAB AMONO % Pope% 5.0 LAB AAMONO <0.87 k/uL Abs Pope 0.17 LAB AEOS % Eosin% 0.0 LAB AAEOS <0.46 k/uL Abs Eosin 0.00 LAB ABASO % Baso% 1.0 LAB AABASO <0.11 k/uL Abs Baso 0.03 LAB ABIMMG k/uL 2.45 ANC(includeSEG+BAN D) LAB ANIIMI Anisocytosis Present LAB OVAIMI Ovalocytes Few LAB PLTEST Platelet Estimate Platelet estimate decreased LAB DTYP DTYPE Manual Diff Performed By: #### BMP, MG1, PHOS, CBCDIF #### [facility] [address] [place], [place] [address] CONSULT PROG Observed: 01/13/2018 Status: COMPLETED Source: [place] 11:08 PM [facility] REPOSITORY HNO ID: [id number] Author: Danette Casiano) Nasreen Service: Neurology Stroke Author Type: Physician Type: Consult Progress Note Filed: 01/13/2018 11:11 PM Note Text: CTA h/n reviewed CT head : no bleed ; no SAH ; no areas of encephalomalacia ; no areas of hypodensity concerning for a recent infarct CTA h/n : IMPRESSION: No evidence of an acute intracranial process. Moderate stenosis tapering to focal high-grade stenosis or occlusion of the intracranial (nondominant) left vertebral artery, reconstituted distally possibly by retrograde flow. No evidence of other large vessel occlusion or critical stenosis involving the visualized proximal arteries of the head and neck. -- No noted AVM ; intracranial aneurysm -- Dominant right vertebral artery-with good flow into the basilar artery From neurology standpoint okay to proceed with CT surgery Discussed risk for thromboembolic events with atrial fibrillation; intracranial bleeding risk associated with 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s with pt and his . Danette Downey MD Staff, [facility] [address] [place] [id number] 01/13/2018 11:09 PM PROGRESS Observed: 01/13/2018 Status: COMPLETED Source: [place] 7:08 PM [facility] REPOSITORY HNO ID: [id number] Author: ePter Childs (Rn) DIEUDONNE Mora Service: Radiology Author Type: Registered Nurse Type: Progress Notes Filed: 01/13/2018 7:09 PM Note Text: Radiology Service Progress Note PATIENT NAME: Frank Rivera DATE OF SERVICE: January 13, 2018 TIME: 7:08 PM PATIENT WEIGHT: 233 LBS PATIENT IDENTITY VERIFICATION COMPLETED USING TWO (2) METHODS: Patient confirmed name verbally and ID band matches.. PATIENT GENDER DATA: Male CONTRAST INDUCED NEPHROPATHY RISK FACTORS: Patient age > 60 years and Known Chronic Kidney Disease (CKD) CREATININE: Creatinine Date Value Ref Range Status 01/13/2018 4.30 (H) 0.73 - 1.22 mg/dL Final Comment: Result rechecked. 01/12/2018 6.05 (H) 0.73 - 1.22 mg/dL Final 01/11/2018 4.90 (H) 0.73 - 1.22 mg/dL Final eGFR-All Other Races Date Value Ref Range Status 01/13/2018 14 . Final Comment: eGFR (Estimated GFR) Units of measure: mL/min/1.73 meters squared eGFR is derived from the reexpressed MDRD Study equation using the following parameters: serum creatinine, age, gender and race. The creatinine assay has been calibrated to be traceable to IDMS. An eGFR <60 mL/min/1.73m2 for >3 months is consistent with chronic kidney disease. Refer to KDOQI guidelines for clinical interpretation. In patients with unstable renal function, e.g. those with acute kidney injury, the eGFR may not accurately reflect actual GFR. eGFR- Date Value Ref Range Status 01/13/2018 17 Final P.O.C.T. RESULTS: N/A January 13, 2018 TREATMENT: No Hydration needed: End Stage Renal Disease, patient with set dialysis schedule. ALLERGIES: Reviewed and unchanged CONTRAST ALLERGY: NO. IV SITE: Inpatient - refer to LDA documentation IV SITE APPEARANCE: Clean,Dry and Intact SIGNED BY: Peter Mora RN January 13, 2018 7:08 PM CTA NECK W IVCON Observed: 01/13/2018 Status: F Source: [place] 7:07 PM [facility] REPOSITORY * * *Final Report* * * DATE OF EXAM: Jan 13 2018 7:07PM [facility] 0024 - CTA NECK W IVCON / PROCEDURE REASON: Aneurysm, neck vessel(s) * * * * Physician Interpretation * * * * EXAMINATION: CTA HEAD WO/W IVCON, CTA NECK W IVCON CLINICAL HISTORY: Stroke, follow up TECHNIQUE: Routine CT of the brain without IV contrast. Next, spiral high resolution axial images were obtained through the head, neck and superior mediastinum following bolus administration of intravenous contrast for CT angiography. The data was subsequently post-processed utilizing 3D multi-planar reconstructions, 3D maximum intensity projections, and a tissue segmentation algorithm at a separate workstation under physician supervision. MQ: CTABNPlus_3 Contrast: 80 mL Omnipaque 300 Central IV Dose-Length Product (DLP): 1484 mGy*cm. CT Dose Reduction Employed: No dose reduction techniques were required COMPARISON: Unenhanced CT brain from 01/07/2018. RESULT: BRAIN: Acute change: No evidence of an acute infarct or other acute parenchymal process. ASPECT Score = 10 Hemorrhage: No evidence of acute intracranial hemorrhage. ECASS hemorrhagic transformation score = Not Applicable Mass Lesion / Mass Effect: There is no evidence of an intracranial mass or extraaxial fluid collection. No significant mass effect. Chronic change: There is a small remote lacunar infarct of the right cerebellar hemisphere. Parenchyma: There is mild generalized volume loss for age. The brain parenchyma is otherwise within normal limits for age. Ventricles: Ventricular enlargement concordant with the degree of parenchymal volume loss. Other: The visualized paranasal sinuses are grossly clear. The skull and visualized extracranial soft tissues are grossly normal. NECK: Soft tissues: Partially visualized left chest wall AICD/pacemaker with leads extending into the SVC, terminals not imaged. Partially visualized right IJ central venous catheter coursing into the SVC, tip not imaged. Postsurgical changes of median sternotomy. The soft tissue planes are maintained throughout. No evidence of a soft tissue mass in the neck or superior mediastinum. No significant lymphadenopathy is seen. Spine: Reversal of cervical lordosis with otherwise normal alignment. Moderate degenerative changes are present. Lung apices: Right pleural effusion. Dependent atelectasis of right greater than left lung. Generalized inter and intralobular septal thickening possibly reflecting edema. No clear focal consolidation or mass otherwise. CT ARTERIOGRAM: Extracranial Circulation: Aortic Arch: There is a normal variant branching pattern of the aortic arch with a contracted for the innominate and left common carotid arteries. tThere is no significant stenosis in the proximal brachiocephalic vessels. Carotid Stenosis: Right Common: No significant stenosis. Right Internal Carotid Plaque: Calcified plaque at the origin causing trivial narrowing. Right Internal Carotid Stenosis (% by NASCET Criteria): 20% Left Common: No significant stenosis. Left Internal Carotid Plaque: Calcified plaque at the origin causing trivial narrowing. Left Internal Carotid Stenosis (% by NASCET Criteria): 17% Cervical Vertebral Arteries: Patency: Bilateral. There is some luminal irregularity and mild narrowing of the V3 segment of the nondominant left vertebral artery Dominance: Right Intracranial Circulation: Spot Sign Presence: Not Applicable Spot Sign Number: Not Applicable Anterior Circulation: Bilateral distal ICAs, proximal MCAs, and proximal ACAs appear widely patent. Vertebrobasilar Circulation: Moderate stenosis tapering to focal high-grade stenosis or occlusion of the V4 segment (nondominant) left vertebral artery, reconstituted distally possibly by retrograde flow. Distal right vertebral artery, proximal PICAs, basilar artery, proximal bilateral AICAs, proximal bilateral SCAs, and proximal bilateral director of strategic partnerships appear widely patent. IMPRESSION: No evidence of an acute intracranial process. Moderate stenosis tapering to focal high-grade stenosis or occlusion of the intracranial (nondominant) left vertebral artery, reconstituted distally possibly by retrograde flow. No evidence of other large vessel occlusion or critical stenosis involving the visualized proximal arteries of the head and neck. Loss Prevention Operations Manager: PSCB Transcribe Date/Time: Jan 13 2018 7:13P Dictated by : LUCIANO RUSHING MD This examination was interpreted and the report reviewed and electronically signed by: LUCIANO RUSHING MD on Jan 13 2018 8:50PM EST [id number] CTA HEAD WO/W IVCON Observed: 01/13/2018 Status: F Source: [place] 7:07 PM [facility] REPOSITORY * * *Final Report* * * DATE OF EXAM: Jan 13 2018 7:07PM [facility] 0023 - CTA HEAD WO/W IVCON / PROCEDURE REASON: Stroke, follow up * * * * Physician Interpretation * * * * EXAMINATION: CTA HEAD WO/W IVCON, CTA NECK W IVCON CLINICAL HISTORY: Stroke, follow up TECHNIQUE: Routine CT of the brain without IV contrast. Next, spiral high resolution axial images were obtained through the head, neck and superior mediastinum following bolus administration of intravenous contrast for CT angiography. The data was subsequently post-processed utilizing 3D multi-planar reconstructions, 3D maximum intensity projections, and a tissue segmentation algorithm at a separate workstation under physician supervision. MQ: CTABNPlus_3 Contrast: 80 mL Omnipaque 300 Central IV Dose-Length Product (DLP): 1484 mGy*cm. CT Dose Reduction Employed: No dose reduction techniques were required COMPARISON: Unenhanced CT brain from 01/07/2018. RESULT: BRAIN: Acute change: No evidence of an acute infarct or other acute parenchymal process. ASPECT Score = 10 Hemorrhage: No evidence of acute intracranial hemorrhage. ECASS hemorrhagic transformation score = Not Applicable Mass Lesion / Mass Effect: There is no evidence of an intracranial mass or extraaxial fluid collection. No significant mass effect. Chronic change: There is a small remote lacunar infarct of the right cerebellar hemisphere. Parenchyma: There is mild generalized volume loss for age. The brain parenchyma is otherwise within normal limits for age. Ventricles: Ventricular enlargement concordant with the degree of parenchymal volume loss. Other: The visualized paranasal sinuses are grossly clear. The skull and visualized extracranial soft tissues are grossly normal. NECK: Soft tissues: Partially visualized left chest wall AICD/pacemaker with leads extending into the SVC, terminals not imaged. Partially visualized right IJ central venous catheter coursing into the SVC, tip not imaged. Postsurgical changes of median sternotomy. The soft tissue planes are maintained throughout. No evidence of a soft tissue mass in the neck or superior mediastinum. No significant lymphadenopathy is seen. Spine: Reversal of cervical lordosis with otherwise normal alignment. Moderate degenerative changes are present. Lung apices: Right pleural effusion. Dependent atelectasis of right greater than left lung. Generalized inter and intralobular septal thickening possibly reflecting edema. No clear focal consolidation or mass otherwise. CT ARTERIOGRAM: Extracranial Circulation: Aortic Arch: There is a normal variant branching pattern of the aortic arch with a contracted for the innominate and left common carotid arteries. tThere is no significant stenosis in the proximal brachiocephalic vessels. Carotid Stenosis: Right Common: No significant stenosis. Right Internal Carotid Plaque: Calcified plaque at the origin causing trivial narrowing. Right Internal Carotid Stenosis (% by NASCET Criteria): 20% Left Common: No significant stenosis. Left Internal Carotid Plaque: Calcified plaque at the origin causing trivial narrowing. Left Internal Carotid Stenosis (% by NASCET Criteria): 17% Cervical Vertebral Arteries: Patency: Bilateral. There is some luminal irregularity and mild narrowing of the V3 segment of the nondominant left vertebral artery Dominance: Right Intracranial Circulation: Spot Sign Presence: Not Applicable Spot Sign Number: Not Applicable Anterior Circulation: Bilateral distal ICAs, proximal MCAs, and proximal ACAs appear widely patent. Vertebrobasilar Circulation: Moderate stenosis tapering to focal high-grade stenosis or occlusion of the V4 segment (nondominant) left vertebral artery, reconstituted distally possibly by retrograde flow. Distal right vertebral artery, proximal PICAs, basilar artery, proximal bilateral AICAs, proximal bilateral SCAs, and proximal bilateral director of strategic partnerships appear widely patent. IMPRESSION: No evidence of an acute intracranial process. Moderate stenosis tapering to focal high-grade stenosis or occlusion of the intracranial (nondominant) left vertebral artery, reconstituted distally possibly by retrograde flow. No evidence of other large vessel occlusion or critical stenosis involving the visualized proximal arteries of the head and neck. Loss Prevention Operations Manager: IDA Transcribe Date/Time: Jan 13 2018 7:13P Dictated by : LUCIANO RUSHING MD This examination was interpreted and the report reviewed and electronically signed by: LUCIANO RUSHING MD on Jan 13 2018 8:50PM EST [id number] PROGRESS Observed: 01/13/2018 Status: COMPLETED Source: [place] 7:06 PM [facility] REPOSITORY HNO ID: [id number] Author: LIZZ Gordon (Ct) Service: Radiology Author Type: Clinical Spray Rig Operator Type: Progress Notes Filed: 01/13/2018 7:07 PM Note Text: Radiology Service Progress Note PATIENT NAME: Frank Rivera DATE OF SERVICE: January 13, 2018 TIME: 7:06 PM PATIENT IDENTITY VERIFICATION COMPLETED USING TWO (2) METHODS: Patient confirmed name verbally and ID band matches.. PATIENT GENDER DATA: Male PATIENT RELEVANT IMPLANT DATA REVIEWED: Yes RADIOLOGY DEPARTMENT: CT; Exam(s) Completed: CTA Brain and CTA Neck PERIPHERAL IV DATA: Inpatient: see LDA documentation SIGNED BY: LIZZ Gordon January 13, 2018 7:06 PM ANES PREOP Observed: 01/13/2018 Status: COMPLETED Source: PLANO 4:01 PM [facility] REPOSITORY HNO ID: [id number] Author: Ramirez Alvarez Service: Anesthesiology Author Type: Resident Type: Anesthesia PreOp Filed: 01/13/2018 4:29 PM Note Text: [facility] PREOP EVALUATION CARDIOTHORACIC ANESTHESIA INPATIENT @[email or web address]@ SERVICE DATE: 01/13/2018 SERVICE TIME: 4:01PM ROOM/BED: [address] [place] [address]/[id number] Proposed Surgical Procedure: Aortic Valve Surgery and Tricuspid Valve Surgery Re-do: YES ASA Class: 4 Surgeon: Jarocho Surgery Date: 01/14/18 Last Wt 01/13/18 : 106.1 kg (233 lb 12.8 oz) Last Ht 12/29/17 : 193 cm (6' 4) Estimated body mass index is 28.46 kg/m? as calculated from the following: Height as of this encounter: 193 cm (6' 4). Weight as of this encounter: 106.1 kg (233 lb 12.8 oz). Estimated body surface area is 2.39 meters squared as calculated from the following: Height as of this encounter: 193 cm (6' 4). Weight as of this encounter: 106.1 kg (233 lb 12.8 oz). Pt is a 62 y/o M with PMH significant for Aortic stenosis (s/p bioprosthethic AVR 27mm [employer] 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 Alarcon on 01/14/18 His initial presentation to OSH was due to suspected GI bleed (low Hgb, no diagnostic findings on colonoscopy, EGD, or tagged RBC scan) Per nephrology note, patient will undergo dialysis first round tomorrow. Per nephrology note, would prefer tunneled dialysis catheter if possible to place in OR Pt with positive bartonella titers, c/w Bartonella prosthetic valve endocarditits Per ID note, would suggest removing trialysis catheter just prior to surgery and would suggest removal of pacemaker in entirety at time of surgery. PAST MEDICAL HISTORY Diagnosis Date - Aortic stenosis - Atrial fibrillation (HCC) - CAD (coronary artery disease) of bypass graft - CVA, old, dysphagia - Heyd's syndrome (HCC) - History of Min-en-Y gastric bypass - HTN (hypertension) - Hx of sick sinus syndrome PAST SURGICAL HISTORY Procedure Laterality Date - CARPAL TUNNEL - DIALYSIS CATHETER PROCEDURE (W NOTE) 12/27/2017 - GASTRIC BYPASS, MIN-EN-Y 1995 - PERCUT AORTIC VALVE REPLACE 05/07/2017 FAMILY HISTORY Problem Relation Age of Onset - Ischemic Heart Disease Mother - other (hypothyroidism) Mother - Ischemic Heart Disease Father - Thyroid Cancer Sister Social History Substance Use Topics - Smoking status: Current Every Day Smoker Types: Cigars, Cigarettes - Smokeless tobacco: Not on file Comment: States he quit cigarretes years ago 25 yr ppd previously, last had cigar in october - Alcohol use No ALLERGIES Allergen Reactions - Penicillin Hives REVIEW OF SYSTEMS: Neuro: Stroke-residual deficit Respiratory: Dyspnea Cardiovascular: See HPI GI: hx of gastric bypass, hx of GI bleed Endocrine: Hypothyroidism Hematology: Iron deficiency anemia, Anemia of chronic disease, Anemia due to Vitamin B12 deficiency CKD AND ANEMIA ASSESSMENT: Patient has both eGFR < 60 mL/min and a Hemoglobin < 11 g/dl: Yes - Patient has CKD with Anemia, we make the following recommendations: 1. Intraoperative IV administration of desmopressin 0.3mcg/kg in 50 mL given over 10 minutes after protomine administration. 2. Postoperative blood conservation measures including using pediatric tubes for blood draws and avoiding routine lab work. if the patient is going on CPB. ANESTHETIC HISTORY: History of general anesthesia without complications. AIRWAY ASSESSMENT: Airway History: No abnormal airway history. No ARKs record available for review Airway Exam: General: Normal appearance. Fully removable upper and lower dentures Mallampati Score: CLASS II Thyromental Distance: 8 cm Neck Circumference: 44 cm Overbite: No Cervical Mobility: Normal Facial Hair: No Head/Neck Pathology: No ANTICIPATED DIFFICULT AIRWAY: POSSIBLY Pre-Existing Diagnosis of Obstructive Sleep Apnea: No, STOP BANG SCORE: Criteria = Criteria: Hypertension Age over 50 (62 year old) Neck circumference > 15.75 inches Male gender Score = 4, Score = 4 PHYSICAL EXAM: VITALS: BP 128/61 Pulse 65 Temp 37 ?C (98.6 ?F) (Oral) Resp 18 Ht 193 cm (6' 4) Wt 106.1 kg (233 lb 12.8 oz) SpO2 95% BMI 28.46 kg/m? CARDIAC: Regular rate and rhythm. Systolic murmur. LUNGS: Lungs clear to auscultation. Good air entry bilaterally. Date 01/13/18 0700 - 01/14/18 0659 Shift 4312-8205 8434-0242 4229-7755 24 Hour Total I N T A K E PO 340 340 IV 10 10 Shift Total 350 350 O U T P U T Urine 0 0 Shift Total 0 0 Weight (kg) 106 106 106 106 Lines, Drains, Airway: Dialysis cath triple lumen R IJ PIV x1, 20G R wrist O2 Therapy: Room Air (01/13/18 1045) LABS: Lab Results Past 6 Months Component Value Date HB 7.2 (L) 01/13/2018 HCT 22.3 (L) 01/13/2018 PLT 98 (L) 01/13/2018 WBC 3.51 (L) 01/13/2018 NA 132 (L) 01/13/2018 K 4.4 01/13/2018 CREAT 4.30 (H) 01/13/2018 CA 8.1 (L) 01/13/2018 APTT 33.5 (H) 01/08/2018 INR 1.3 01/08/2018 TSH 28.120 (H) 01/12/2018 FIBCT 204 01/01/2018 Lab Results Past 6 Months Component Value Date GLUC 81 01/13/2018 K 4.4 01/13/2018 NA 132 (L) 01/13/2018 CHLOR 97 01/13/2018 CO2 27 01/13/2018 CREAT 4.30 (H) 01/13/2018 BUN 25 (H) 01/13/2018 ANION 8 (L) 01/13/2018 CA 8.1 (L) 01/13/2018 TPROT 6.1 (L) 01/08/2018 ALB 2.1 (L) 01/08/2018 TBILI 0.6 01/08/2018 ALKPHOS 139 (H) 01/08/2018 AST 49 (H) 01/08/2018 ALT 30 01/08/2018 ABO Group (no units) Date Value 08/17/2016 A ABO/RH(D) (no units) Date Value 01/10/2018 A POSITIVE Antibody Screen (no units) Date Value 01/10/2018 NEG Historical Ab Scr Status (no units) Date Value 01/13/2018 NEGATIVE Total Units PRBC: 6 Units Anticipated Blood Products Ordered: Ordered 2 units of PRBC. Will the Patient Accept Blood: Yes IMAGING AND TESTS: Transesophageal Echo 01/01/18 MEASUREMENTS: ?Value ?Indexed ? ?Normal Max aortic dimension 3.7 cm ? 1.49 cm/m? Ejection Fraction ? ?60 % (visual est.) ?EF > 52 ? FINDINGS: ? LEFT VENTRICLE The left ventricle is normal in size. Left ventricular systolic function is normal. ? RIGHT VENTRICLE The right ventricle is dilated. Pacer wires are noted in the right ventricle. Right ventricular systolic function is mildly decreased. ? LEFT ATRIUM The left atrial cavity is dilated. There is no spontaneous echo contrast noted. There is no left 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 thrombus. Pulmonary Veins: The pulmonary venous pattern showed blunted systolic flow. RIGHT ATRIUM The right atrial cavity is dilated. Pacer wires are noted in the right atrium. A venous catheter is noted in the right atrium. ? MITRAL VALVE [place] mitral valve. There is mild (1+ - 2+) mitral valve regurgitation. 3D echocardiographic multi-planar reconstruction of the mitral valve was performed ?to assess anatomy and function. ? TRICUSPID VALVE [place] tricuspid valve. There is moderate (2+ - 3+) tricuspid valve regurgitation. ? AORTIC VALVE Trifecta prosthetic valve size #27. There is moderately severe (3+) aortic valve regurgitation due to paravalvular endocarditis. There is no significant flow reversal. 3D echocardiographic multi-planar reconstruction of the aortic valve was performed ?to assess anatomy and function. ? AORTA The visualized aorta is normal in size. Measurements - Mid ascending aorta 3.7 cm. INTERATRIAL SEPTUM There is no patent foramen ovale as detected by Doppler and saline contrast. ? CONCLUSIONS: - Exam indication: ?Endocarditis - The left ventricle is normal in size. Left ventricular systolic function is normal. EF = 60 ? 5% (visual est.) - The right ventricle is dilated. Right ventricular systolic function is mildly decreased. - The left atrial cavity is dilated. - Previous RUDY ligation. Small residual RUDY. - The right atrial cavity is dilated. - There is moderate (2+ - 3+) tricuspid valve regurgitation. 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 There is moderately severe (3+) aortic valve regurgitation due to paravalvular endocarditis. - There is no patent foramen ovale as detected by Doppler and saline contrast. - The Aortic valve prosthesis appears to be well seated with evidence of mild degeneration and without any obvious mobile echodensity on its leaflets. There is thickening of the Aorto-Mitral curtain and posterior LA wall which is suggestive of either hematoma or active infection. - There does not appear to be any transvalvular AI however there is a diastolic flow arising from the subvalvular region which may (Clip #47, #42) or may represent 3+ paravalvular regurgitation with a very eccentric jet. Consider Cardiac CT for better characterization and to r/o the presence of a fistula or abscess. - There is a a small mobile echodensity within the RA which may be attached either ?to the Venous catheter or the atrial portion of one of the pacemaker leads (1.2cm ?x 0.55 cm, Clip #28). This may represent vegetation or thrombus. ? - Exam was compared with the prior echocardiographic exam performed on 12/25/2017. Thrombus/Vegetation on pacemaker lead/venous catheter and possible paralvalvular leak. CT CHEST CARDIAC WO IVCON 01/07/18 IMPRESSION: AVR with BIOPROSTHETIC VALVE; valve ring 2.5 cm - ?moderate diffuse leaflet calcification AORTIC ROOT: ECTASIA; Diameter: 4.3 cm - assessment is limited in that noncontrast study ASCENDING THORACIC AORTA: ECTASIA; Diameter: 4.4 cm; mild surgical changes LEFT VENTRICLE: ?APPEARS DILATED, which could reflect size or LVH Right ventricle: ?appears prominent Calcified atherosclerotic changes of the CORONARY ARTERIES, precluding precise assessment with CT. CENTRAL PULMONARY ARTERY: DILATED, measuring 4 cm, assessment is limited due to limited contrast enhancement. Clinical correlation is recommended Lungs: small right and trivial left pleural effusions with adjacent atelectasis, emphysematous changes ?? ?Non-calcified up to ?6 mm ? ? nodules right middle ?lung lobe and left lingula (Image # [id number], [id number], [id number]) Incidental Finding: ?FOLLOW- UP with DETECTED LUNG NODULE CHEST CT EXAM IS RECOMMENDED IN 6-12 MONTHS. Lung Diffusion Capacity 01/13/18 CT BRAIN WO IVCON 01/07/18 IMPRESSION: Minimal chronic microvascular ischemic change. ?No acute brain findings on this exam. CT ABD/PEL WO IVCON 01/06/18 IMPRESSION: EVOLVING LARGE RECTUS SHEATH HEMATOMA, SLIGHTLY DECREASED IN SIZE SINCE 12/27/2017 RESOLUTION OF LEFT PREVESICAL HEMATOMA Pacemaker Clinic Check 01/12/18 ? UNDERLYING RHYTHM: Sinus Bradycardia with 1st degree AVB ? BATTERY STATUS: Normal and shows no significant depletion. ? COUNTERS SINCE :11/16/17 ? ATRIAL ARRHYTHMIAS: There have been 718 triggered episodes of atrial high rates with EGMs showing PAC triggered events. Each event lasting < 1 minute. ? Anticoagulants listed: None ? VENTRICULAR ARRHYTHMIAS: 2 VHR triggered events EGM's showing short runs of NSVT. ? LEAD MEASUREMENTS: Capture and sensing are appropriate. The pacing outputs maintain safety margin. Review of the lead impedance trends are normal. ? IMPLANT SITE/ SYMPTOMS: The incision and pocket are pain-free (0/10), well healed and without signs of erosion or infection. No arm swelling, syncope, pre-syncope or device related pocket stimulation. ? OTHER DIAGNOSTICS: RV pacing 17%. DEVICES: PPM MEDICATIONS: Current Facility-Administered Medications: doxycycline 100 mg in D5W 250 mL Vial-Mate (VIBRAMYCIN) 100 mg INTRAVENOUS q 12 H cefTRIAXone 2 g in D5W 100 mL MB+ (ROCEPHIN) 2 g INTRAVENOUS q 24 H docusate sodium 100 mg cap(s) (COLACE) 100 mg ORAL BID PRN polyethylene glycol 3350 17 g packet (MIRALAX, GLYCOLAX) 17 g ORAL DAILY PRN senna-docusate 8.6-50 mg 1 tablet (SENNA-S) 1 tablet ORAL/FEEDING TUBE BID PRN calcium carbonate 1,000 mg chewable tab(s) (TUMS) 1,000 mg ORAL/FEEDING TUBE BID PRN acetaminophen 650 mg tab(s) (TYLENOL) 650 mg ORAL q 4 H PRN sodium chloride 0.65 % 2 [place] (AYR, OCEAN) 2 [place] EACH NOSTRIL TID PRN ssyhtrjt-usfp-zrgic acid chewable tablet (CENTRUM) 1 tablet ORAL DAILY cholecalciferol 3,000 Units tab(s) (VITAMIN D3) 3,000 Units ORAL DAILY cyanocobalamin 500 mcg tab(s) (VITAMIN B-12) 500 mcg ORAL DAILY thiamine 100 mg tab(s) (VITAMIN B1) 100 mg ORAL DAILY diphenhydrAMINE 25 mg (BENADRYL) 25 mg ORAL q 6 H PRN aspirin, enteric coated 81 mg tab(s) 81 mg ORAL DAILY metoprolol tartrate (short acting) 12.5 mg tab(s) (LOPRESSOR) 12.5 mg ORAL BID tamsulosin ER 0.4 mg cap(s) (FLOMAX) 0.4 mg ORAL DAILY pantoprazole DR 40 mg tab(s) (PROTONIX) 40 mg ORAL BID levothyroxine 200 mcg tab(s) (SYNTHROID) 200 mcg ORAL BEFORE BREAKFAST DAILY atorvastatin 80 mg tab(s) (LIPITOR) 80 mg ORAL AT BEDTIME Is the patient currently on any 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 medications: Yes: Anticoagulant medications the patient is currently on: Aspirin: Last dose: 01/13/18 This was adequately stopped before surgery: No, primary service aware. PAIN AND ANXIETY EDUCATION AND MANAGEMENT: Patient has no concerns to address at this time. Will the Patient Require an Epidural? No Additional Comments: I have reviewed the Cardiothoracic Surgical Assessment and agree with its findings. During the course of the encounter the patient was prepared for anesthetic care. This conversation included anesthetic options, possible use of invasive monitoring, the risks, benefits, alternatives, and personnel that will be present for the anesthetic encounter. The patient agreed to proceed with the planned anesthetic. Instructed to take levothyroxine, metoprolol, pantaprazole with a small sip of water on the morning of surgery. BETA MAGDY COMPLIANCE: Is the Patient Scheduled for a CABG: No SIGNATURE: Ramirez Alvarez DO PATIENT NAME: Frank Rivera DATE: January 13, 2018 TIME: 4:01pm PAGER/CONTACT #: CONSULT PROG Observed: 01/13/2018 Status: COMPLETED Source: [place] 3:59 PM [facility] REPOSITORY O ID: [id number] Author: Janae Cao Service: Cardiac Surgery Author Type: Nurse Practitioner Type: Consult Progress Note Filed: 01/13/2018 4:33 PM Note Text: [facility] CONSULT PROGRESS NOTE Frank Rivera [id number] CONSULTING SERVICE: Cardiothoracic Surgery PRIMARY SERVICE: Cardiology: Clinical TIME CLOCK MECHANIC/PA service PLAN: Surgical planning TBD. Neuro consult today. Endo consult for the TSH of 28. ID: Dr. Olivas's RE: Remains on doxycycline/ceftriaxone? No infectious disease contraindication open heart surgery - at time of surgery please send specimens for endocarditis protocol.At time of surgery suggest removal of his pacemaker in its entirety and dialysis catheter. SUBJECTIVE: INTERVAL HISTORY: 62 yoM with paravalvular endocarditis of the AV prosthesis + possible fistula/abscess + echodensity within the RA which may be either a vegetation or thrombus c/b IRINA requiring dialysis. . S/p AVR and RUDY (04/2017) which was c/b SSS required PPM insertion (05/13/2017). Recovery was going well until an acute stroke occurred 10/2017. On 12/24/17 with fatigue and shortness of breath from an OSH with IRINA and renal biopsy concerning for C3 nephropathy + hemolytic anemia requiring transfusions and initiation of dialysis secondary to hypoxemic respiratory failure and volume overload. A bone marrow biopsy to evaluate pancytopenia revealed: no abnormal myeloid maturation or increased blasts. There was reportedly no evidence of a lymphoproliferative disorder or plasma cell neoplasm. Comorbidities include Stroke, Afib w SSS s/p PPM, HTN, CVA, Heyd's Syndrome, Recurrent GIB, Anemia~2/2 malabsorbtion from Gastric bypass, IRINA, Lymphoadenopathy, Obesity, Malnutrition, Pancytopenia OBJECTIVE: MEDICATIONS: Current hospital medications: doxycycline 100 mg in D5W 250 mL Vial-Mate (VIBRAMYCIN) 100 mg INTRAVENOUS q 12 H cefTRIAXone 2 g in D5W 100 mL MB+ (ROCEPHIN) 2 g INTRAVENOUS q 24 H docusate sodium 100 mg cap(s) (COLACE) 100 mg ORAL BID PRN polyethylene glycol 3350 17 g packet (MIRALAX, GLYCOLAX) 17 g ORAL DAILY PRN senna-docusate 8.6-50 mg 1 tablet (SENNA-S) 1 tablet ORAL/FEEDING TUBE BID PRN calcium carbonate 1,000 mg chewable tab(s) (TUMS) 1,000 mg ORAL/FEEDING TUBE BID PRN acetaminophen 650 mg tab(s) (TYLENOL) 650 mg ORAL q 4 H PRN sodium chloride 0.65 % 2 [place] (AYR, OCEAN) 2 [place] EACH NOSTRIL TID PRN vbgnjpfj-ictq-zqwjp acid chewable tablet (CENTRUM) 1 tablet ORAL DAILY cholecalciferol 3,000 Units tab(s) (VITAMIN D3) 3,000 Units ORAL DAILY cyanocobalamin 500 mcg tab(s) (VITAMIN B-12) 500 mcg ORAL DAILY thiamine 100 mg tab(s) (VITAMIN B1) 100 mg ORAL DAILY diphenhydrAMINE 25 mg (BENADRYL) 25 mg ORAL q 6 H PRN aspirin, enteric coated 81 mg tab(s) 81 mg ORAL DAILY metoprolol tartrate (short acting) 12.5 mg tab(s) (LOPRESSOR) 12.5 mg ORAL BID tamsulosin ER 0.4 mg cap(s) (FLOMAX) 0.4 mg ORAL DAILY pantoprazole DR 40 mg tab(s) (PROTONIX) 40 mg ORAL BID levothyroxine 200 mcg tab(s) (SYNTHROID) 200 mcg ORAL BEFORE BREAKFAST DAILY atorvastatin 80 mg tab(s) (LIPITOR) 80 mg ORAL AT BEDTIME PHYSICAL EXAM: 01/13/18 0700 01/13/18 0836 01/13/18 1045 01/13/18 1518 BP: 125/70 145/67 128/61 143/70 Pulse: 63 60 65 65 Resp: Temp: 36.6 ?C (97.9 ?F) 37 ?C (98.6 ?F) 36.8 ?C (98.2 ?F) TempSrc: Oral Oral Oral SpO2: 96% 95% 98% Weight: Height: PHYSICAL EXAMINATION General: Alert and oriented, no distress, pleasant and cooperative. Heart: Regular, normal S1 and S2, no murmurs, rubs, or gallops Lungs: Clear to auscultation bilaterally Abdomen: soft, slight tenderness to palpitation Extremities: Feet/ankles +1 edema, posterior tibial pulses full and symmetrical Intake/Output Summary (Last 24 hours) at 01/13/18 1559 Last data filed at 01/13/18 1500 Gross per 24 hour Intake 1090 ml Output 0 ml Net 1090 ml DATA: Laboratory: Recent Labs 01/13/18 0350 01/12/18 0439 01/11/18 0410 WBC 3.51* 4.33 4.40 HB 7.2* 7.4* 7.0* HCT 22.3* 23.1* 22.2* PLT 98* 93* 90* NA 132* 131* 132* K 4.4 5.3* 4.7 CHLOR 97 97 98 CO2 27 21* 24 BUN 25* 40* 27* CREAT 4.30* 6.05* 4.90* GLUC 81 82 81 SIGNATURE: Janae Cao APRN.CNP PAGER: [phone] DATE of SERVICE: 01/13/2018 TIME of SERVICE: 4:33 PM CONSULT PROG Observed: 01/13/2018 Status: COMPLETED Source: [place] 3:17 PM [facility] REPOSITORY [facility] ID: [id number] Author: Rohit Olivas Service: Infectious Disease Author Type: Physician Type: Consult Progress Note Filed: 01/13/2018 3:28 PM Note Text: INFECTIOUS DISEASE CONSULT SERVICE PROGRESS NOTE Patient Name: Frank Rivera Interval Events: Course reviewed Possibly surgery tomorrow No fevers or chills Up and around Tolerating antibiotics In addition to those reviewed and documented in the HPI all other systems reviewed and were negative. MEDICATIONS Medications reviewed. Current hospital medications: doxycycline 100 mg in D5W 250 mL Vial-Mate (VIBRAMYCIN) 100 mg INTRAVENOUS q 12 H cefTRIAXone 2 g in D5W 100 mL MB+ (ROCEPHIN) 2 g INTRAVENOUS q 24 H docusate sodium 100 mg cap(s) (COLACE) 100 mg ORAL BID PRN polyethylene glycol 3350 17 g packet (MIRALAX, GLYCOLAX) 17 g ORAL DAILY PRN senna-docusate 8.6-50 mg 1 tablet (SENNA-S) 1 tablet ORAL/FEEDING TUBE BID PRN calcium carbonate 1,000 mg chewable tab(s) (TUMS) 1,000 mg ORAL/FEEDING TUBE BID PRN acetaminophen 650 mg tab(s) (TYLENOL) 650 mg ORAL q 4 H PRN sodium chloride 0.65 % 2 [place] (AYR, OCEAN) 2 [place] EACH NOSTRIL TID PRN guecqhfv-xbqo-trhhb acid chewable tablet (CENTRUM) 1 tablet ORAL DAILY cholecalciferol 3,000 Units tab(s) (VITAMIN D3) 3,000 Units ORAL DAILY cyanocobalamin 500 mcg tab(s) (VITAMIN B-12) 500 mcg ORAL DAILY thiamine 100 mg tab(s) (VITAMIN B1) 100 mg ORAL DAILY diphenhydrAMINE 25 mg (BENADRYL) 25 mg ORAL q 6 H PRN aspirin, enteric coated 81 mg tab(s) 81 mg ORAL DAILY metoprolol tartrate (short acting) 12.5 mg tab(s) (LOPRESSOR) 12.5 mg ORAL BID tamsulosin ER 0.4 mg cap(s) (FLOMAX) 0.4 mg ORAL DAILY pantoprazole DR 40 mg tab(s) (PROTONIX) 40 mg ORAL BID levothyroxine 200 mcg tab(s) (SYNTHROID) 200 mcg ORAL BEFORE BREAKFAST DAILY atorvastatin 80 mg tab(s) (LIPITOR) 80 mg ORAL AT BEDTIME Examination: BP 128/61 Pulse 65 Temp 37 ?C (98.6 ?F) (Oral) Resp 18 Ht 193 cm (6' 4) Wt 106.1 kg (233 lb 12.8 oz) SpO2 95% BMI 28.46 kg/m? Temp (24hrs), Av.1 ?C (98.8 ?F), Min:36.6 ?C (97.9 ?F), Max:37.4 ?C (99.3 ?F) General appearance: Resting in bed, no distress Skin: no rash Head: neg Eyes: anicteric Oropharynx: neg Neck: right ij trialysis catheter Back: not examined Lungs: CTA Heart: rrnl Abdomen: soft Extremities: Bilateral lower extremity edema - improved, some petechiae - evolving Musculoskeletal: Negative Peripheral pulses: radial pulses palpable Exam unchanged as compared with 01/12 other than as edited above. Lab, Microbiology and Imaging Data: Personally reviewed imaging studies, laboratory results, and microbiology results. ASSESSMENT: 62-year-old with multiple medical problems including but not limited to atrial fibrillation, hypertension, and aortic stenosis status post aortic valve replacement in April 2017 with a permanent pacemaker placed shortly thereafter was transferred to our hospital on 12/24 for further evaluation of an acute kidney injury. He initially presented to an outside hospital on 12/19 for further evaluation of a new anemia and renal failure after presenting to his primary care physician with fatigue and shortness of breath. He was treated empirically with prednisone for a glomerular nephritis and transferred. 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 Positive serologies for antineutrophil cytoplasmic antibodies and myeloperoxidase. He is requiring renal replacement therapy. Notable aspects of his workup thus far from infectious disease perspective has included: 2 blood cultures 12/25-no growth to date Bartonella serologies-IgG for Bartonella henselae greater than 1:1024, IgG for Bartonella amato 1:1024 Transesophageal echocardiogram 01/01-2-3+ TR, 3+ AI, thickening of the aorto-mitral curtain and posterior LA wall suggestive of either hematoma or active infection, small mobile echodensity within the RA-vegetation versus thrombus CT chest cardiac 01/07-moderate diffuse leaflet calcification CT brain 01/07-no acute findings CT abdomen and pelvis 01/06-evolving large rectus sheath hematoma His 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 Interestingly, despite his titers he has no obvious epidemiological link to this genus. In speaking with him and in reviewing his records there was no suspicion for endocarditis of the time of his operation in April. He continues to require renal replacement therapy. He is being considered for open heart surgery. RECOMMENDATIONS: Continue doxycycline 100 mg IV every 12 hours Continue ceftriaxone 2 g IV every 24 hours No infectious disease contraindication open heart surgery - at time of surgery please send specimens for endocarditis protocol. At time of surgery suggest removal of his pacemaker in its entirety. Just prior to surgery would remove his current trialysis catheter. Assessment and plan unchanged as compared with 01/12 except as edited above. Monitoring for ongoing therapeutic and potential untoward effect of antibiotic therapy. Following Signature: Rohit Olivas MD Pager: [phone] CONSULT PROG Observed: 01/13/2018 Status: COMPLETED Source: [place] 2:59 PM [facility] REPOSITORY HNO ID: [id number] Author: Binu Christian Service: Nephrology Author Type: Physician Type: Consult Progress Note Filed: 01/13/2018 3:16 PM Note Text: Renal Consults F/U January 13, 2018 S: No major events. Remains anuric. Current hospital medications: doxycycline 100 mg in D5W 250 mL Vial-Mate (VIBRAMYCIN) 100 mg INTRAVENOUS q 12 H cefTRIAXone 2 g in D5W 100 mL MB+ (ROCEPHIN) 2 g INTRAVENOUS q 24 H docusate sodium 100 mg cap(s) (COLACE) 100 mg ORAL BID PRN polyethylene glycol 3350 17 g packet (MIRALAX, GLYCOLAX) 17 g ORAL DAILY PRN senna-docusate 8.6-50 mg 1 tablet (SENNA-S) 1 tablet ORAL/FEEDING TUBE BID PRN calcium carbonate 1,000 mg chewable tab(s) (TUMS) 1,000 mg ORAL/FEEDING TUBE BID PRN acetaminophen 650 mg tab(s) (TYLENOL) 650 mg ORAL q 4 H PRN sodium chloride 0.65 % 2 [place] (AYR, OCEAN) 2 [place] EACH NOSTRIL TID PRN fsycbiva-xcpi-ysivh acid chewable tablet (CENTRUM) 1 tablet ORAL DAILY cholecalciferol 3,000 Units tab(s) (VITAMIN D3) 3,000 Units ORAL DAILY cyanocobalamin 500 mcg tab(s) (VITAMIN B-12) 500 mcg ORAL DAILY thiamine 100 mg tab(s) (VITAMIN B1) 100 mg ORAL DAILY diphenhydrAMINE 25 mg (BENADRYL) 25 mg ORAL q 6 H PRN aspirin, enteric coated 81 mg tab(s) 81 mg ORAL DAILY metoprolol tartrate (short acting) 12.5 mg tab(s) (LOPRESSOR) 12.5 mg ORAL BID tamsulosin ER 0.4 mg cap(s) (FLOMAX) 0.4 mg ORAL DAILY pantoprazole DR 40 mg tab(s) (PROTONIX) 40 mg ORAL BID levothyroxine 200 mcg tab(s) (SYNTHROID) 200 mcg ORAL BEFORE BREAKFAST DAILY atorvastatin 80 mg tab(s) (LIPITOR) 80 mg ORAL AT BEDTIME PHYSICAL EXAM: Patient Vitals for the past 24 hrs: BP Temp Temp src Pulse Resp SpO2 Weight 01/13/18 1045 128/61 37 ?C (98.6 ?F) Oral 65 18 95 % - 01/13/18 0836 145/67 - - 60 - - - 01/13/18 0700 125/70 36.6 ?C (97.9 ?F) Oral 63 20 96 % - 01/13/18 0500 - - - - - - 106.1 kg (233 lb 12.8 oz) 01/13/18 0209 121/66 37.2 ?C (99 ?F) Oral 73 16 91 % - 01/12/18 2248 131/70 37.2 ?C (98.9 ?F) Oral 62 18 92 % - 01/12/18 2100 119/68 37.4 ?C (99.3 ?F) Oral 66 18 94 % - 01/12/18 2014 127/71 - - 68 - - - 01/12/18 1718 115/63 37.4 ?C (99.3 ?F) Oral 62 18 94 % - 01/12/18 1553 126/66 37.1 ?C (98.7 ?F) Oral 60 18 95 % - VS: No data found. I/O: Intake/Output Summary (Last 24 hours) at 01/13/18 1459 Last data filed at 01/13/18 1300 Gross per 24 hour Intake 1030 ml Output 0 ml Net 1030 ml Intake/Output Summary (Last 24 hours) at 01/13/18 0659 Last data filed at 01/13/18 0500 Gross per 24 hour Intake 1890 ml Output 2000 ml Net -110 ml General: ?NAD Neck: Trachea midline. No mass palpable Lungs: ?Clear to auscultation, no crackles or wheezing. CV: ?normal, Regular rate and rhythm, + murmur, no rubs. ACCESS: RIJ temp. ?No secretions. Abd: + bowel sounds, no distension. Neuro: no asterixis, no focal deficits. Ext: ?+?edema LABS: Recent Labs 01/13/18 0350 01/12/18 0439 01/11/18 0410 CREAT 4.30* 6.05* 4.90* BUN 25* 40* 27* NA 132* 131* 132* K 4.4 5.3* 4.7 CHLOR 97 97 98 CO2 27 21* 24 GLUC 81 82 81 CA 8.1* 8.2* 7.7* MG 1.9 2.0 1.9 P 2.6* 3.2 2.7 WBC 3.51* 4.33 4.40 HB 7.2* 7.4* 7.0* MCV 97.4 96.3 95.7 PLT 98* 93* 90* IMPRESSION: 62 year old male with PMH including A-fibb, s/p AVR, history of CVA, Fe deficiency anemia and hemolytic anemia presented to [facility] as a transfer from OSH on 12/24. ?Initial presentation to OSH was due to suspected GI bleed. Patient had low Hg however no diagnostic findings on Colonoscopy, EGD or tagged RBC scan. Patient was transferred to [facility] upon worsening of renal function. ? 1. 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 2. Electrolytes ?-Hyponatremia ? 3. Normocytic Anemia ?-Likely multifactorial cause including blood loss, hemolysis as well as acute renal failure ?-No concerning finding on BM bx. Hematology has signed off ? 5. Volume Overload. Edema likely also exacerbated by hypoalbuminemia Plans for possible OR time tomorrow. Will do dialysis first round tomorrow. As mentioned before, he will need a tunneled dialysis catheter. Would be great if it can be done in the OR. No need for IHD today and we are unable to accommodate extra session today due to staffing in Q6. He would need to go to ICU for emergent IHD. Thank You for allowing us to participate in his care. Binu Christian MD. [facility] [phone] Staff. Nephrology and Hypertension. January 13, 2018 2:59 PM FREE T3 Collected: 01/13/2018 Status: F Source: [place] 2:05 PM [facility] REPOSITORY TYPE CODE TESTS RESULT OUT OF RANGE REFERENCE UNITS LAB FREET3 2.3-4.1 pg/mL Low Free T3 1.0 Performed By: #### FREET3, FT4, T3 #### [facility] [address] [phone] FREE T4 Collected: 01/13/2018 Status: F Source: [place] 2:05 PM [facility] REPOSITORY TYPE CODE TESTS RESULT OUT OF RANGE REFERENCE UNITS LAB FT4 0.9-1.7 ng/dL Free T4 0.9 Performed By: #### FREET3, FT4, T3 #### [place] [id number] [place] [address] T3 Collected: 01/13/2018 Status: F Source: [facility] 2:05 PM [facility] REPOSITORY TYPE CODE TESTS RESULT OUT OF RANGE REFERENCE UNITS LAB T3 79-165 ng/dL Low T3 48 Performed By: #### FREET3, FT4, T3 #### [place] [phone] TYPE AND SCREEN Collected: 01/13/2018 Status: F Source: [place] 2:05 [facility] REPOSITORY TYPE CODE TESTS RESULT OUT OF REFERENCE UNITS RANGE LAB %ABR A ABO/RH(D) POSITIVE LAB % Antibody NEG Screen Performed By: #### TSCR #### [place] [id number] PROGRESS Observed: 01/13/2018 Status: COMPLETED Source: [place] 1:57 PM [facility] REPOSITORY HNO ID: [id number] Author: Kristina Andrea) Aj Service: Cardiovascular Medicine Author Type: Nurse Practitioner Type: Progress Notes Filed: 01/13/2018 1:59 PM Note Text: [facility] CARDIOVASCULAR MEDICINE PROGRESS NOTE Frank Rivera [id number] PRIMARY SERVICE: Hvi Clinical General Agent/Pa HOSPITAL DAY: # 20 INTERVAL HISTORY New to floor Transferred from building No events overnight Rhythm: SR, demand AP Intake/Output Summary (Last 24 hours) at 01/13/18 1357 Last data filed at 01/13/18 1000 Gross per 24 hour Intake 1160 ml Output 0 ml Net 1160 ml EKG: Most recent reviewed TELE: most recent recordings reviewed CXR: most recent image reviewed, most recent report reviewed Echocardiogram: most recent report reviewed PHYSICAL EXAM: BP 128/61 Pulse 65 Temp 37 ?C (98.6 ?F) (Oral) Resp 18 Ht 193 cm (6' 4) Wt 106.1 kg (233 lb 12.8 oz) SpO2 95% BMI 28.46 kg/m? Neuro: AANDO x 3 moves all extremities with no apparent weakness CV: no jugular venous distention RRR without gallop, or rubs. No ectopy. + systolic/diastolic murmer Resp: clear to auscultation bilaterally Abd: +BS x4 Skin: skin color, texture, turgor normal, no rashes or lesions Ext: no edema MEDICATIONS Current hospital medications: doxycycline 100 mg in D5W 250 mL Vial-Mate (VIBRAMYCIN) 100 mg INTRAVENOUS q 12 H cefTRIAXone 2 g in D5W 100 mL MB+ (ROCEPHIN) 2 g INTRAVENOUS q 24 H docusate sodium 100 mg cap(s) (COLACE) 100 mg ORAL BID PRN polyethylene glycol 3350 17 g packet (MIRALAX, GLYCOLAX) 17 g ORAL DAILY PRN senna-docusate 8.6-50 mg 1 tablet (SENNA-S) 1 tablet ORAL/FEEDING TUBE BID PRN calcium carbonate 1,000 mg chewable tab(s) (TUMS) 1,000 mg ORAL/FEEDING TUBE BID PRN acetaminophen 650 mg tab(s) (TYLENOL) 650 mg ORAL q 4 H PRN sodium chloride 0.65 % 2 [place] (AYR, OCEAN) 2 [place] EACH NOSTRIL TID PRN [id number] acid chewable tablet (CENTRUM) 1 tablet ORAL DAILY cholecalciferol 3,000 Units tab(s) (VITAMIN D3) 3,000 Units ORAL DAILY cyanocobalamin 500 mcg tab(s) (VITAMIN B-12) 500 mcg ORAL DAILY thiamine 100 mg tab(s) (VITAMIN B1) 100 mg ORAL DAILY diphenhydrAMINE 25 mg (BENADRYL) 25 mg ORAL q 6 H PRN aspirin, enteric coated 81 mg tab(s) 81 mg ORAL DAILY metoprolol tartrate (short acting) 12.5 mg tab(s) (LOPRESSOR) 12.5 mg ORAL BID tamsulosin ER 0.4 mg cap(s) (FLOMAX) 0.4 mg ORAL DAILY pantoprazole DR 40 mg tab(s) (PROTONIX) 40 mg ORAL BID levothyroxine 200 mcg tab(s) (SYNTHROID) 200 mcg ORAL BEFORE BREAKFAST DAILY atorvastatin 80 mg tab(s) (LIPITOR) 80 mg ORAL AT BEDTIME DATA Recent Labs 01/13/18 0350 01/12/189 01/11/180 WBC 3.51* 4.33 4.40 HB 7.2* 7.4* 7.0* HCT 22.3* 23.1* 22.2* PLT 98* 93* 90* Recent Labs 01/13/18 0350 01/12/189 01/11/18 0410 NA 132* 131* 132* K 4.4 5.3* 4.7 CO2 27 21* 24 BUN 25* 40* 27* CREAT 4.30* 6.05* 4.90* GLUC 81 82 81 MG 1.9 2.0 1.9 ASSESSMENT AND PLAN Presentation/Indication for admission/procedure: C3 NEPHROPATHY;IRINA Admit date: 12/24/2017 LVEF: 60 RVEF: Low Nl Cards: [facility] Cath: PMH/PSH: Atrial fibrillation on apixaban 5mg BID on metoprolol 12.5mg BID HTN Hypothyroidism on levothyroxine 200mcg qdaily Atrial Fibrillation s/p PPM and DCCV in 04/2017 Aortic Stenosis s/p bioprosthetic AVR (27mm [facility]. Richi Trifecta pericardial valve) and RUDY ligation 05/07/17 Sick sinus syndrome s/p pacemaker placement 05/13/17 Hx of CVA with residual dysphagia Chronic Iron Deficiency Anemia (also B12 deficient) Hx of Min-En-Y bypass in 1995 Hx of Upper GI bleeds (1997, 2014, 2015) Procedure/OR performed (including complications): Echocardiogram CHANDRAKANT CT C/A/P CT brain Brief Hospital Course/Narrative: Mr. Frank Rivera is a 62y/o gentleman with atrial fibrillation and SSS s/p PPM, HTN, hypothyroidism, aortic stenosis s/p AVR and RUDY, history of Min-en-Y bypass c/b recurrent GIB, ADRIANNE, B12 deficiency, who presents to [facility] on 12/24/17 with fatigue and shortness of breath who was transferred from OSH with IRINA and renal biopsy concerning for C3 nephropathy. MICU transfer to initiate dialysis secondary to volume overload. CHANDRAKANT 01/01 showed AV vegitation. Transfered to [facility] 01/13 Issues to communicate: - Bartonella positive, on IV doxycycline and ceftriaxone - still not producing urine, IHD 01/12, was put on HD -- for IRINA (no hx of CKD) - Hgb, tx if < 7 - CTS - Dr. Cuauhtemoc Parker - Monitor H/H and transfuse Hg < 7 mg/dL or platelets < 50 Neuro consult per CTS Problem Subacute Bacterial Endocarditis History: Bartonella henselae Assessment: On rocephin and doxy Plan: Continue ABx per ID, CTS Anemia History: Hx FE, B12 deficiencies, UGI bleeds, Heyde's syndrome Assessment: BMBx - Normocytic anemia with anisocytosis and no increased schistocytes or spherocytes. Thrombocytopenia. Iron studies suggest anmeia of chronic disease Plan: Monitor. Transfuse for Hgb <7 Pancytopenia (Hcc) History: Hx anemia, FE, B12 Assessment: BMBX Normocytic anemia with anisocytosis Plan: Hematology signed off. Atrial Fibrillation (Hcc) History: Hx post op AF Assessment: S/P DCC 06/07. In SR Plan: Continue Beta Magdy Heyd's Syndrome (Hcc) Irina (Acute Kidney Injury) (Hcc) History: IRINA. No Hx CKD Assessment: C3 nephropathy Plan: IHD per nephrology Htn (Hypertension) History: on hydralazine, lopressor at home Assessment: Currently well controlled Plan: Continue lopressor Rectus Sheath Hematoma History: Pt with hematoma found on CT. Had renal Bx at OSH? Assessment: Stable by repeat CT Plan: Monitor Cva, Old, Dysphagia History: Remote Assessment: Mild dysphagia Plan: Neuro c/s per CTS Malnutrition of Moderate Degree (Hcc) History: Per nutrition Assessment: In the context of Acute Illness or Injury based on: Insufficient Energy Intake: <75% for >7 days Subcutaneous Fat Loss: Mild Loss Muscle Loss Mild Loss Plan: Intervention: 1) Continue Regular diet 2) Beneprotein TID (75kcal, 18g ptn) 3) Continue Bariatric Vitamin regimen 4) Maintain normal bowel regimen 5) Please document accurate intakes of meals and supplements to further assess nutritional status. Thank you. Goals: pt to meet > 75% of est needs prior to d/c. Case discussed with Shaun Robledo Cardiovascular Medicine Nurse Practitioner Pager [phone] (please see below for after hours communication) 01/13/2018 1:57 PM For communication after 5 pm on weekdays and after 12 pm on weekends, please page the following: - Clinical Cardiology patients on all floors: page [phone] - Other Cardiology patients on J5 and J6: page [phone] - Other Cardiology patients on J7 and J8: page [phone] THERAPY NT Observed: 01/13/2018 Status: COMPLETED Source: [place] 1:43 PM [facility] REPOSITORY O ID: [id number] Author: Tianna MariePt) Marianna Service: Physical Therapy Author Type: Physical Therapist Type: Therapy (PT/OT/Speech/Resp) Filed: 01/13/2018 1:43 PM Note Text: PHYSICAL THERAPY MISSED VISIT SERVICE DATE: 01/13/2018 SERVICE TIME: 1207 to 1207 ROOM: [place] [id number] Attempted Treatment. Patient not seen due to Another service at bedside. SIGNATURE: Tianna Cabral PT PATIENT NAME: Frank Rivera DATE: January 13, 2018 TIME: 1:43 PM ECG COMPLETE W Observed: 01/13/2018 Status: F Source: PLANO INTERPRETATION 1:34 PM [facility] REPOSITORY NAME : FRANK RIVERA PID : [id number] : 1955 Gender : Male Race : ORD : [id number] Procedure Date : Jan 13 2018 13:34:50 Edit Date : Jan 18 2018 09:09:28 Diagnosis:PACED RHYTHM WITH PREMATURE VENTRICULAR COMPLEXES IN BIGEMINY ABNORMAL ECG Confirmed by LUPE LAI M.D. ([id number]) on 01/18/2018 9:05:33 AM Ventricular Rate : 77 BPM Atrial Rate : 39 BPM QRS Duration : 182 ms Q-T Interval : 500 ms QTC Calculation(Bezet) : 565 ms R Killbuck : -82 degrees T Killbuck : 87 degrees Test Reason : C3 NEPHROPATHY Location : [id number] : [id number] Overread By : LUPE LAI M.D. Edited By : LUPE LAI M.D. Referred By : , Acquired by : CARLEEN MONDRAGON CONSULT Observed: 01/13/2018 Status: COMPLETED Source: PLANO 1:22 PM [facility] REPOSITORY HNO ID: [id number] Author: Narda Gong Service: Endocrinology Author Type: Physician Type: Consults Filed: 01/13/2018 6:22 PM Note Text: ENDOCRINOLOGY INITITAL CONSULT NOTE PATIENT NAME: Frank Rivera SERVICE DATE: January 13, 2018 REASON FOR CONSULT: hypothyroid managment PRIMARY CARE PHYSICIAN: Gracy Cuellar DO SUBJECTIVE HISTORY OF PRESENT ILLNESS: 62 year old male with hx afib, sick sinus syndrome s/p permanent pacemaker, hypothyroidism on 200mcg at home, HTN, aortic stenosis s/p AVR, gastric bypass (1995) c/b GI bleeding, iron-deficiency anemia, and B12 deficiency who presented to OSH for fatigue found to have IRINA w/ renal biopsy showing C3 nephropathy. Required dialysis for fluid overload. Ongoing issues this admission include anuria and bartonella infectious endocarditis of AV valve (on doxycycline and ceftriaxone) for which he will need valve replacement. Endocrinology consulted for elevated TSH 28.12. Pt reports having taken synthroid for 10-12 years. States he has been on the 200mcg for at least several months before hospital admission. Has a sister w/ hx of thyroid cancer. Was never diagnosed with Jean's. Denies any symptoms of hypothyroidism including cold intolerance, depression, or dry skin. No amiodarone use. PAST MEDICAL HISTORY: PAST MEDICAL HISTORY Diagnosis Date - Aortic stenosis - Atrial fibrillation (HCC) - CAD (coronary artery disease) of bypass graft - CVA, old, dysphagia - Heyd's syndrome (HCC) - History of Min-en-Y gastric bypass - HTN (hypertension) - Hx of sick sinus syndrome PAST SURGICAL HISTORY: PAST SURGICAL HISTORY Procedure Laterality Date - CARPAL TUNNEL - DIALYSIS CATHETER PROCEDURE (W NOTE) 12/27/2017 - GASTRIC BYPASS, MIN-EN-Y 1996 - PERCUT AORTIC VALVE REPLACE 05/07/2017 FAMILY HISTORY: FAMILY HISTORY Problem Relation Age of Onset - Ischemic Heart Disease Mother - other (hypothyroidism) Mother - Ischemic Heart Disease Father - Thyroid Cancer Sister SOCIAL HISTORY: Social History Marital status: Single Spouse name: Years of education: Number of children: Occupational History 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 No current outpatient prescriptions on file prior to encounter. CURRENT MEDICATIONS: Current hospital medications: doxycycline 100 mg in D5W 250 mL Vial-Mate (VIBRAMYCIN) 100 mg INTRAVENOUS q 12 H cefTRIAXone 2 g in D5W 100 mL MB+ (ROCEPHIN) 2 g INTRAVENOUS q 24 H docusate sodium 100 mg cap(s) (COLACE) 100 mg ORAL BID PRN polyethylene glycol 3350 17 g packet (MIRALAX, GLYCOLAX) 17 g ORAL DAILY PRN senna-docusate 8.6-50 mg 1 tablet (SENNA-S) 1 tablet ORAL/FEEDING TUBE BID PRN calcium carbonate 1,000 mg chewable tab(s) (TUMS) 1,000 mg ORAL/FEEDING TUBE BID PRN acetaminophen 650 mg tab(s) (TYLENOL) 650 mg ORAL q 4 H PRN sodium chloride 0.65 % 2 [place] (AYR, OCEAN) 2 [place] EACH NOSTRIL TID PRN klqjnpvj-jnph-jfxck acid chewable tablet (CENTRUM) 1 tablet ORAL DAILY cholecalciferol 3,000 Units tab(s) (VITAMIN D3) 3,000 Units ORAL DAILY cyanocobalamin 500 mcg tab(s) (VITAMIN B-12) 500 mcg ORAL DAILY thiamine 100 mg tab(s) (VITAMIN B1) 100 mg ORAL DAILY diphenhydrAMINE 25 mg (BENADRYL) 25 mg ORAL q 6 H PRN aspirin, enteric coated 81 mg tab(s) 81 mg ORAL DAILY metoprolol tartrate (short acting) 12.5 mg tab(s) (LOPRESSOR) 12.5 mg ORAL BID tamsulosin ER 0.4 mg cap(s) (FLOMAX) 0.4 mg ORAL DAILY pantoprazole DR 40 mg tab(s) (PROTONIX) 40 mg ORAL BID levothyroxine 200 mcg tab(s) (SYNTHROID) 200 mcg ORAL BEFORE BREAKFAST DAILY atorvastatin 80 mg tab(s) (LIPITOR) 80 mg ORAL AT BEDTIME CURRENT ALLERGIES: ALLERGIES Allergen Reactions - Penicillin Hives ROS: SYSTEMIC: fatigue and low energy None EYES: normal NECK: normal RESPIRATORY: normal CARDIOVASCULAR: edema of the lower extremities GASTRO-INTESTINAL: normal NEUROLOGICAL: normal MUSCULOSKELETAL: No joint pain, stiffness, swelling, cramping or weakness : per HPI SKIN: no changes OBJECTIVE PHYSICAL EXAM: BP 128/61 Pulse 65 Temp 37 ?C (98.6 ?F) (Oral) Resp 18 Ht 193 cm (6' 4) Wt 106.1 kg (233 lb 12.8 oz) SpO2 95% BMI 28.46 kg/m? GENERAL: in no distress and oriented x 3 EYES: no thyroid eye signs, GLORY, Fundi normal and cornea normal NECK: no visible nodules or goiter, no bruit, no tenderness and no adenopathies Heart RRR with normal S1 and S2, no murmurs, no gallops, no JVD appreciated Lungs clear to auscultation Abdomen bowel sounds normoactive, no bruits, soft, non-tender, non-distended, without organomegaly or palpable masses, no tenderness to palpation EXTREMITIES: No clubbing, no edema, no cyanosis and normal nails NEURO: normal strength, no tremor and normal reflexes DATA: Labs: TSH Date Value Ref Range Status 01/12/2018 28.120 (H) 0.400 - 5.500 uU/mL Final ASSESSMENT AND PLAN 62 year old male with hx afib, sick sinus syndrome s/p permanent pacemaker, hypothyroidism on 200mcg synthroid at home, HTN, aortic stenosis s/p AVR (04/2017), gastric bypass, iron-deficiency anemia, and B12 deficiency now anuric 2/2 C3 nephropathy requiring dialysis and being worked up for open heart AV replacement procedure 2/2 Bartonella endocarditis of AV valve. Endocrinology consulted for elevated TSH to 28.12. Pt w/ hypothyroidism on synthroid for 10-12 years. No recent changes to synthroid dose. Pt has been asymptomatic. Last thyroid labs (04/20/2017): TSH 3.366, free T4 1.21. On review of MAR, pt's PPI and iron-containing multivitamin have been given at the same time as the levothyroxine. - please give levothyroxine on empty stomach, 2 hrs before or after PPI and multivitamin - f/u free T3 and T4 - recheck thyroid labs in one week Case to be discussed with attending staff, addendum to follow. Please call [facility] End[facility] (found on the [facility] schedule online) after 5 pm. Yanet Gudino MD, PGY-1 Pager: [phone] January 13, 2018 1:22 PM STAFF PHYSICIAN NOTE OF PERSONAL INVOLVEMENT IN CARE ?? I personally interviewed and examined the patient, I reviewed the progress note obtained and documented by the resident and I personally participated in the hernandez components. I have discussed the case and management of the patient's care. The following comments revise or confirm relevant hernandez components of their note. ?? IMPRESSION/PLAN: This is a 62 year old male with extensive cardiac history currently undergoing evaluation for open heart AV replacement procedure 2/2 Bartonella endocarditis Endocrinology has been consulted for management of hypothyroidism Currently on Synthroid 200 mcg daily, which is his home dose Recent TSH was elevated He has been getting Synthroid with PPI and multi vitamin since the time of this hospitalization, which is likely interfering with absorption These medications need to be > 2 hours after Synthroid Check free T4 and Free T3 If the free thyroid hormones are normal, then will continue current synthroid dose But if the free thyroid are low, then will increase, Synthroid dose to 225 mcg daily Will follow ?? SIGNATURE:Narda Gong MD 01/13/18 CONSULT Observed: 01/13/2018 Status: COMPLETED Source: PLANO 11:18 AM [facility] REPOSITORY O ID: [id number] Author: Bre Goldstein Service: Neurology Stroke Author Type: Resident Type: Consults Filed: 01/13/2018 5:23 PM Note Text: Attestation signed by Danette Casiano) Nasreen at 01/13/2018 11:04 PM (Updated) [facility] STAFF PHYSICIAN NOTE OF PERSONAL INVOLVEMENT IN CARE I have reviewed the consult note obtained and documented by the resident and I personally participated in the hernandez components. I have discussed the case and management of the patient's care. The following comments revise or confirm relevant hernandez components of the note. 62-year-old M with known history of atrial fibrillation since past 15 years; has been on anticoagulation only since April 2017- post bioprosthetic aortic valve replacement for aortic stenosis and LAAligation, pacemaker placement at that time. Patient reports to have had in October 2017--slurred speech and right-sided weakness--he made remarkable recovery with minimal right facial droop-otherwise has regained full strength in his right upper extremity lower extremity Denies having thunderclap headaches No TIA Sx or new focal neurological deficit since October 2017 Patient was transferred to [facility] for evaluation and management of chronic anemia and nephropathy; during his workup was noted to have infection related glomerulonephritis-currently on dialysis Also CHANDRAKANT-noting paravalvular endocarditis; posterior left atrial wall hematoma/active infection-mobile echodensity within the right atrium-vegetation versus thrombus Clinical exam ; very minimal facial asymmetry-facial droop on the left No motor or sensory deficits No cranial nerve deficits NIHSS 0 IMPRESSION : Suspected stroke symptoms October 2017--- treated in Paravalvular endocarditis Echo 01/01/18 --- bioprosthetic aortic valve mild degeneration thickening; also involving posterior LA wall ; small mobile echodensity within the right atrium Plan : - Without severe thunderclap headache or new focal neurological deficit since October 2017-- less likely that he has acute infarcts or SAH - Unable to get MRI MRA secondary to pacemaker -CT head CTA head and neck--- if no acute intracranial process/ bleed or structural vascular etiology such as AVM aneurysm intracranial or extracranial hemodynamically significant stenosis------- then ok to proceed with planned surgery . Will follow results . Please call with any questions Aspirin 81 mg by mouth daily for secondary stroke prevention. Postsurgery- we will need to re-discuss resuming anticoagulation for h/o Afib Cannot completely exclude possibility of a mycotic aneurysm . However this is a low possibility at this time without clinical events concerning for ischemic events and no SAH. Discussed risk for thromboembolic events while off anticoagulation , risk for hemorraghic events as part of informed consent with planned CT surgery . Danette Downey, Vascular Neurology Staff, Pager : [phone] January 13, 2018 10:36 PM [facility] NEURO STROKE SERVICE DATE: 01/13/2018 SERVICE TIME: 11:18 AM PCP: Gracy Cuellar DO REASON FOR STROKE EVALUATION: Pre-Surgical Assessment Subjective HPI: Mr. 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 He had initially presented to [facility] in late November with concerns for fatigue and shortness of breath, at which time he was found to have low hemoglobin and an infection (HGB 7.5 and Cr 4.12). He was found to have an acute kidney injury which progressed to renal failure requiring dialysis (biopsy concerning for C3 nephropathy). He was treated with Prednisone for presumed glomerular nephritis. He developed severe fluid overload and has been anuric. He was transferred to [facility] for further management. He had a CHANDRAKANT performed on 01/01/18 as part of his ID work up, which revealed 2-3+ TR, 3+ AI, thickening of the aorto-mitral curtain and posterior LA suggestive or either hematoma or infection and a small mobile echodensity within the right atrium which was suggestive of a vegetation versus thrombus. CT chest on 01/07/18 showed moderate diffuse leaflet calcification. A CT brain performed on the same date also did not show any acute findings. Stroke Neurology was consulted on January 13, 2018 for pre-surgical evaluation. The patient has never been seen by a Neurologist in the [facility] system. His stroke in October of this year was treated in the [facility]. He has residual dysphagia and very mild right sided facial droop. The patient reports that he also had right upper extremity paresthesias for several days following his initial stroke, which have since resolved. The patient has not had any recurrence of his symptoms since that time. He denies any other history of neurological disease but describes an episode of left visual disturbance (likely amaurosis fugax) which occurred in January 2017. At the time of initial assessment, the patient states that he is feeling well. He notes that he did have an episode of shortness of breath this morning which lasted for several minutes. The patient otherwise denies any current fevers, chills, cough, sore throat, chest pain, palpitations, abdominal pain, nausea, vomiting, urinary symptoms, changes in bowel habits, headaches, hearing/vision changes, or any new numbness/tingling/weakness. Pre-admission Was patient on antithrombotic agent prior to admission: Antiplatelet Antiplatelet: Aspirin Was patient on lipid lowering agent prior to admission: Statin Pre-morbid mRS: Premorbid Modified Merced Score: 1 - No significant disability despite symptoms - able to carry out all usual duties and activities PAST MEDICAL HISTORY Diagnosis Date - Aortic stenosis - Atrial fibrillation (HCC) - CAD (coronary artery disease) of bypass graft - CVA, old, dysphagia - Heyd's syndrome (HCC) - History of Min-en-Y gastric bypass - HTN (hypertension) - Hx of sick sinus syndrome PAST SURGICAL HISTORY Procedure Laterality Date - CARPAL TUNNEL - DIALYSIS CATHETER PROCEDURE (W NOTE) 12/27/2017 - GASTRIC BYPASS, MIN-EN-Y 1996 - PERCUT AORTIC VALVE REPLACE 05/07/2017 Social History Marital status: Single Spouse name: Years of education: Number of children: Occupational History 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 Disp: Rfl: Unknown at Unknown time hydrALAZINE (APRESOLINE) 25 mg tablet Take 25 mg by mouth every 8 hours. Disp: Rfl: Unknown at Unknown time ascorbic acid-ascorbate sodium 500 mg chew Take 500 mg by mouth once daily. Disp: Rfl: Unknown at Unknown time levothyroxine (LEVOXYL) 200 mcg tablet Take 200 mcg by mouth daily before breakfast. Disp: Rfl: Unknown at Unknown time magnesium oxide 200 mg magnesium tab Take 2 tablets by mouth once daily. Disp: Rfl: Unknown at Unknown time metoprolol tartrate, short acting, (LOPRESSOR) 25 mg tablet Take 12.5 mg by mouth twice daily. Disp: Rfl: Unknown at Unknown time ferrous sulfate 325 mg (65 mg iron) tablet Take 325 mg by mouth daily with breakfast. Disp: Rfl: Unknown at Unknown time predniSONE (DELTASONE) 20 mg tablet Take 60 mg by mouth once daily. Disp: Rfl: 12/24/2017 at Unknown time pantoprazole DR (PROTONIX) 20 mg tablet Take 40 mg by mouth twice daily. Disp: Rfl: Unknown at Unknown time cyanocobalamin (VITAMIN B-12) 100 mcg tab Take 500 mcg by mouth once daily. Disp: Rfl: Unknown at Unknown time apixaban (ELIQUIS) 5 mg tab(s) Take 5 mg by mouth twice daily. Disp: Rfl: Unknown at Unknown time Current atorvastatin (LIPITOR) 80 mg tablet Take 80 mg by mouth once daily. hydrALAZINE (APRESOLINE) 25 mg tablet Take 25 mg by mouth every 8 hours. ascorbic acid-ascorbate sodium 500 mg chew Take 500 mg by mouth once daily. levothyroxine (LEVOXYL) 200 mcg tablet Take 200 mcg by mouth daily before breakfast. magnesium oxide 200 mg magnesium tab Take 2 tablets by mouth once daily. metoprolol tartrate, short acting, (LOPRESSOR) 25 mg tablet Take 12.5 mg by mouth twice daily. ferrous sulfate 325 mg (65 mg iron) tablet Take 325 mg by mouth daily with breakfast. predniSONE (DELTASONE) 20 mg tablet Take 60 mg by mouth once daily. pantoprazole DR (PROTONIX) 20 mg tablet Take 40 mg by mouth twice daily. cyanocobalamin (VITAMIN B-12) 100 mcg tab Take 500 mcg by mouth once daily. apixaban (ELIQUIS) 5 mg tab(s) Take 5 mg by mouth twice daily. REVIEW OF SYSTEMS: GENERAL: Negative for: weight loss or gain, fever or chills, or generalized weakness. HEENT: Negative for: impaired vision, hearing impairment, ringing in ears, nosebleeds, or bleeding gums. NECK: Negative for: swelling, pain, stiffness. CV: Negative for chest pain, palpitations, lower extremity swelling. RESPIRATORY: Negative for: cough, blood in sputum, wheezing, apnea. Positive for intermittent shortness of breath. GASTROINTESTINAL: Negative for: trouble swallowing, heartburn, change in bowel habits, blood in stool, dark black stools. MUSCULOSKELETAL: Negative for: muscle or joint pain, stiffness, swelling. NEUROLOGIC/PSYCHIATRIC: See HPI. Negative for: focal weakness, paralysis, numbness, tingling, headache, tremor, nervousness, depressed mood, memory loss. SKIN: Negative for: rashes, itching. HEMATOLOGICAL/LYMPHATIC: Negative for: easy bruising, easy bleeding. ENDOCRINE: Negative for: heat or cold intolerance, excessive sweating, frequent urination, frequent thirst. Objective PHYSICAL EXAM Vital Signs: BP 128/61 Pulse 65 Temp 37 ?C (98.6 ?F) (Oral) Resp 18 Ht 193 cm (6' 4) Wt 106.1 kg (233 lb 12.8 oz) SpO2 95% BMI 28.46 kg/m? HEENT: No scleral icterus. Neck: Supple. Trachea midline. Pulmonary: No increased work of breathing. Cardiac: Regular rate and rhythm. Abdomen: Soft. Non distended. Bowel sounds present. Non tender to palpation throughout all four quadrants. Skin: No rashes or lesions. Extremities. Warm. Capillary refill < 2 seconds. 2+ DP and PT pulses. Bilateral peripheral edema. Multiple scattered bruises. NEUROLOGICAL: LOC: 0 - alert and responsive 0 LOC Questions: 0 - both correct 0 LOC Commands: 0 - both correct 0 LOC Normal Gaze: 0 - normal gaze 0 Visual Lima: 0 - no visual loss 0 Facial Palsy: 0 - normal 0 Motor Left Arm: 0 - no drift 0 Motor Right Arm: 0 - no drift 0 Motor Left Le - no drift 0 Motor Right Le - no drift 0 Limb Ataxia: 0 - no ataxia (or aphasic, hemiplegic) 0 Sensory: 0 - normal 0 Language: 0 - normal 0 Dysarthria: 0 - normal 0 Extinction/Neglect: 0 - normal, none detected (or visual loss alone) 0 Initial NIHSS: 0 (01/13/18 1118 : Bre (Tabitha Goldstein) 0 MENTAL STATUS: Alert, oriented to person, place and time and Follows commands CRANIAL NERVES: PERRLA, EOM's intact, Visual lima intact to confrontation, Extraocular movements intact, Facial sensation intact, Face symmetric (only very mild right lower facial droop at rest), No ptosis, Hearing intact to finger rub bilaterally, No dysarthria, Palate elevates symmetrically, Tongue protrudes midline and Shoulder shrug intact and symmetric MOTOR: No drift and Normal tone MOTOR STRENGTH: Upper and lower extremity 5/5 bilaterally REFLEXES: UE and LE reflexes are equal and reactive, 1+ throughout (only able to elicit with reinforcement) SENSATION: Intact light touch, pinprick, proprioception, temperature and vibration COORDINATION: Finger-to- nose-finger intact bilaterally GAIT: Not assessed DATA: Diagnostic tests reviewed for today's visit: Recent Labs 01/13/18 0350 01/12/18 0439 01/11/18 0410 NA 132* 131* 132* K 4.4 5.3* 4.7 CHLOR 97 97 98 CO2 27 21* 24 BUN 25* 40* 27* CREAT 4.30* 6.05* 4.90* GLUC 81 82 81 CA 8.1* 8.2* 7.7* MG 1.9 2.0 1.9 P 2.6* 3.2 2.7 WBC 3.51* 4.33 4.40 HB 7.2* 7.4* 7.0* HCT 22.3* 23.1* 22.2* PLT 98* 93* 90* Most recent labs and imaging results. CT Brain 01/07/18: Minimal chronic microvascular ischemic change. ?No acute brain findings on this exam. CHANDRAKANT 01/01/18: - Exam indication: ?Endocarditis - The left ventricle is normal in size. Left ventricular systolic function is normal. EF = 60 ? 5% (visual est.) - The right ventricle is dilated. Right ventricular systolic function is mildly decreased. - The left atrial cavity is dilated. - Previous RUDY ligation. Small residual RUDY. - The right atrial cavity is dilated. - There is moderate (2+ - 3+) tricuspid valve regurgitation. 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 There is moderately severe (3+) aortic valve regurgitation due to paravalvular endocarditis. - There is no patent foramen ovale as detected by Doppler and saline contrast. - The Aortic valve prosthesis appears to be well seated with evidence of mild degeneration and without any obvious mobile echodensity on its leaflets. There is thickening of the Aorto-Mitral curtain and posterior LA wall which is suggestive of either hematoma or active infection. - There does not appear to be any transvalvular AI however there is a diastolic flow arising from the subvalvular region which may (Clip #47, #42) or may represent 3+ paravalvular regurgitation with a very eccentric jet. Consider Cardiac CT for better characterization and to r/o the presence of a fistula or abscess. - There is a small mobile echodensity within the RA which may be attached either ?to the Venous catheter or the atrial portion of one of the pacemaker leads (1.2cm ?x 0.55 cm, Clip #28). This may represent vegetation or thrombus. - Exam was compared with the prior CC echocardiographic exam performed on 12/25/2017. Thrombus/Vegetation on pacemaker lead/venous catheter and possible paralvalvular leak. STROKE CARE PATH [employer] [place] Coma Scale Totals (Calculated): 15 STROKE 9 CARE AND PREVENTION CHECKLIST 1. Is the patient currently on an ANTITHROMBOTIC medication (Antiplatelet or Anticoagulant): Aspirin 2. Does the patient have known AFIB/FLUTTER: Chronic or Permanent atrial fibrillation Is the patient currently on anticoagulation: No Reason patient not on anticoagulation: Planned surgery within 7 days Are there plans to start anticoagulation: Yes, discuss at follow up visit 3. Is the patient on a STATIN: Atorvastatin 80 mg 4. Is the patient on VTE prophylaxis: Mechanical prophylaxis;No, pharmacological prophylaxis contraindicated Mechanical intervention type: Intermittent compression stocking(s) Reason for no pharmacological VTE prophylaxis: Planned surgery within 7 days 5. GLYCEMIC Control Medications: Not Diabetic 6. Stroke BP Goals: SBP 130-160 Stroke BP Control: BP well controlled 7. Stroke IVF/Nutrition: Diet 8. TEMPERATURE Control: Normothermic 9. Does the patient need THERAPY: No Reason for no therapy orders: Patient is at baseline, no therapy needed Stroke Care and Prevention (personally reviewed by Bre Goldstein MD): Daily Rounding Date: 01/13/18 Daily Rounding Time: 1118 PROBLEM LIST: Active Problems: Subacute bacterial endocarditis POA: Unknown IRINA (acute kidney injury) (HCC) POA: Yes Anemia POA: Unknown Pancytopenia (HCC) POA: Unknown Atrial fibrillation (HCC) POA: Unknown Heyd's syndrome (HCC) POA: Unknown HTN (hypertension) POA: Unknown Rectus sheath hematoma POA: Unknown CVA, old, dysphagia POA: Unknown Malnutrition of moderate degree (HCC) POA: Yes Lymphadenopathy POA: Unknown CAD (coronary artery disease) POA: Unknown Obesity, Class I, BMI 30-34.9 POA: Unknown Preop testing POA: Unknown Resolved Problems: Hyperkalemia POA: Unknown Assessment/Plan Mr. 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 Stroke Neurology was consulted on January 13, 2018 for pre-surgical evaluation. His stroke in October of this year was treated in the [facility]. He has residual dysphagia and very mild right sided facial droop. The patient has not had any recurrence of his symptoms since that time. He denies any other history of neurological disease but describes an episode of left visual disturbance (likely amaurosis fugax) which occurred in January 2017. CT brain performed on 01/07/18 shows no acute pathology, and there are no deficits noted on initial neurological examination this admission. Ideally would obtain vessel imaging (CTA head and neck) though contrast dye administration would certainly put his kidneys at risk for further damage. If able prior to OR, would obtain MRI/MRA W/WO contrast to evaluate vessel status. Risk Factors Atrial Fibrillation Coronary Artery Disease Dyslipidemia Hypertension Physical Inactivity Stroke Stroke Mechanism PLAN ? Obtain MRI/MRA Head and Neck W/WO contrast ? Otherwise ok to proceed with OR from neurological standpoint ? Continue Aspirin and Atorvastatin for secondary stroke prevention ? Rest per primary team ? Will continue to follow Imaging Ordered Today: None SIGNATURE: Bre Goldstein MD PATIENT NAME: Frank Rivera DATE: January 13, 2018 TIME: 11:18 AM PAGER/CONTACT #: [phone] NUTRITION Observed: 01/13/2018 Status: COMPLETED Source: [place] 10:58 AM [facility] REPOSITORY O ID: [id number] Author: Tobias Benavides) CARLOZ Hernández Service: Nutrition Therapy Author Type: Registered Dietitian Type: Nutrition Filed: 01/13/2018 11:07 AM Note Text: NUTRITION THERAPY PROGRESS NOTE SERVICE DATE: 01/13/2018 SERVICE TIME: 0900 RECOMMENDED DIAGNOSIS: MODERATE PROTEIN-CALORIE MALNUTRITION per Registered Dietitian on 01/06 NUTRITION CARE PLAN Intervention: 1) Continue Regular diet 2) Beneprotein TID (75kcal, 18g ptn) 3) Continue Bariatric Vitamin regimen 4) Maintain normal bowel regimen 5) Please document accurate intakes of meals and supplements to further assess nutritional status. Thank you. Goals: pt to meet > 75% of est needs prior to d/c. Monitor and Evaluation: 1) PO intake 2) Supplement tolerance 3) Wt status 4) Biochemical Markers 5) Skin integrity 6) Plan of care Discharge Nutrition Recommendations: Diet: as above, unless otherwise indicated Supplements: high kcal/high ptn commercial beverage if PO </ 75% of est needs _ _ _ _ _ _ _ _ _ _ _ _ _ _ _ _ _ _ _ _ _ _ _ _ _ _ _ _ _ _ _ _ _ _ _ _ _ _ _ _ _ _ _ _ _ _ _ Per HPI: Mr. 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 MICU transfer to initiate dialysis secondary to volume overload. Patient is now anuric IRINA-D. 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 Nutritional Intake: 01/04-01/05: Avr meal intake 56% which provides 929 kcal and 33 gm pro (37% est kcal and 28% ets pro needs). Pt reports minimal intake of ensure clear. C/o heart burn and anorexia 01/11: missing intakes at breakfast, 100% at lunch and dinner: 1252kcal/64g ptn: ~79% of est needs 01/12: 75% at breakfast, 100% at lunch and dinner: 1303kcal/36g ptn: ~82% of est needs Resting Metabolic Rate: 1970 Dosing wt: 106.1 kg Estimated kilocalorie needs: 7063-3131?kilocalories determined by 15-20?kcal/kg @ CBW Estimated protein needs: 117 - 138 grams determined by 1.1- 1.3 g/kg Dosing?weight Estimated fluid needs: ~2191-5362?milliliters based on 1cc/kcal (unless otherwise indicated) Height: 193 cm (6' 4) Admission Weight: 115.7 kg (255 lb 1.6 oz) Current Weight: 106.1 kg (233 lb 12.8 oz) Body mass index is 28.46 kg/m?. overweight Recent Labs 01/13/18 0350 GLUC 81 BUN 25* CREAT 4.30* NA 132* K 4.4 CHLOR 97 CO2 27 P 2.6* HB 7.2* HCT 22.3* WBC 3.51* MG 1.9 Current Pertinent Medications: doxycycline 100 mg in D5W 250 mL Vial-Mate (VIBRAMYCIN) 100 mg INTRAVENOUS q 12 H cefTRIAXone 2 g in D5W 100 mL MB+ (ROCEPHIN) 2 g INTRAVENOUS q 24 H docusate sodium 100 mg cap(s) (COLACE) 100 mg ORAL BID PRN polyethylene glycol 3350 17 g packet (MIRALAX, GLYCOLAX) 17 g ORAL DAILY PRN senna-docusate 8.6-50 mg 1 tablet (SENNA-S) 1 tablet ORAL/FEEDING TUBE BID PRN calcium carbonate 1,000 mg chewable tab(s) (TUMS) 1,000 mg ORAL/FEEDING TUBE BID PRN sodium chloride 0.65 % 2 [place] (AYR, OCEAN) 2 [place] EACH NOSTRIL TID PRN zigmiaqt-zmth-bnklt acid chewable tablet (CENTRUM) 1 tablet ORAL DAILY cholecalciferol 3,000 Units tab(s) (VITAMIN D3) 3,000 Units ORAL DAILY cyanocobalamin 500 mcg tab(s) (VITAMIN B-12) 500 mcg ORAL DAILY thiamine 100 mg tab(s) (VITAMIN B1) 100 mg ORAL DAILY diphenhydrAMINE 25 mg (BENADRYL) 25 mg ORAL q 6 H PRN aspirin, enteric coated 81 mg tab(s) 81 mg ORAL DAILY metoprolol tartrate (short acting) 12.5 mg tab(s) (LOPRESSOR) 12.5 mg ORAL BID tamsulosin ER 0.4 mg cap(s) (FLOMAX) 0.4 mg ORAL DAILY pantoprazole DR 40 mg tab(s) (PROTONIX) 40 mg ORAL BID levothyroxine 200 mcg tab(s) (SYNTHROID) 200 mcg ORAL BEFORE BREAKFAST DAILY atorvastatin 80 mg tab(s) (LIPITOR) 80 mg ORAL AT BEDTIME MNT Billing Type: Re-assess/15 min 2 units SIGNATURE: Tobias Hernández RD, LD PATIENT NAME: Frank Rivera DATE: January 13, 2018 TIME: 10:58 AM PAGER: [phone] CASE MANAGEM Observed: 01/13/2018 Status: COMPLETED Source: [place] 9:16 AM [facility] REPOSITORY HNO ID: [id number] Author: Chelle Ray (Sw) Service: Care Management Author Type: Director Of Safety And Security Type: Care Mgt Progress Note Filed: 01/13/2018 1:10 PM Note Text: CARE MANAGEMENT PROGRESS NOTE SERVICE DATE: 01/13/2018 SERVICE TIME: 9:14 am LOS: 20 days Needs Prior to Discharge: To Be Determined;Facility or Agency Choices;Procedure;Other: See Comment Procedure Needed: CTS 62 yo. JOEY Wasserman. Transfer to for CTS eval. Per EMR, neuro consult prior to surgery. Tentative surgery next week. Home PT recd and list was given to patient while on G62, but choice not yet obtained. Will attempt to get choice, however, will need to reassess post op for final skilled needs. Family can transport at time of discharge. No set dc date or dispo yet. Care management will continue to follow. Update (9:27 am) Attempted to get HHC choices from patient. Pt out of room at time of visit. Update (1:09 pm) Met with pt and family at bedside. They requested a new list of HHC choices and indicated first list they were given only had about four options, which weren't near their home. Provided a new list based on zip code to pt and family. Pt feels he did very well after his previous surgery and is hoping to not need HHC on d/c. States his mother (who was at bedside) is very supportive and was a nurse. He feels if he only needs basic nursing care (and no PT) she will be able to assist him as she did after his last operation. CM to follow for needs post operatively. SIGNATURE: ADRIEL Hernandez PATIENT NAME: rFank Rivera DATE: January 13, 2018 TIME: 9:16 AM PAGER/CONTACT #: [phone] CNOV Observed: 01/13/2018 Status: COMPLETED Source: [place] 9:00 AM [facility] REPOSITORY Office Visit ([place]) FRANK RIVERA ([id number]) 1955 M T Date Time Provider Department 01/13/18 9:00 AM [facility] J-1 [place] During your visit today, we recorded the following information about you: Referring Provider: CINTIA WILEY [[id number]] Allergies As of Date: 01/13/2018 Noted Allergy Reaction PENICILLIN 12/24/2017 4 - Hives Date Reviewed: 01/13/2018 Reviewed by: Gisella (Rn) DIEUDONNE Regalado - Fully Assessed Reason for Visit: Spirometry [191] Primary Visit Diagnosis:Dyspnea, unspecified type [R06.00] Prescriptions as of 01/13/2018 Sig: ATORVASTATIN 80 MG TABLET Take 80 mg by mouth once charleen* HYDRALAZINE 25 MG TABLET Take 25 mg by mouth every 8 h* ASCORBIC ACID-ASCORBATE SODIU* Take 500 mg by mouth once azucena* LEVOTHYROXINE 200 MCG TABLET Take 200 mcg by mouth daily b* MAGNESIUM 200 MG ( MAGNESIU* Take 2 tablets by mouth once * METOPROLOL TARTRATE 25 MG TAB* Take 12.5 mg by mouth twice d* FERROUS SULFATE 325 MG (65 MG* Take 325 mg by mouth daily wi* PREDNISONE 20 MG TABLET Take 60 mg by mouth once charleen* PANTOPRAZOLE 20 MG TABLET,DEL* Take 40 mg by mouth twice azucena* CYANOCOBALAMIN (VIT B-12) 100* Take 500 mcg by mouth once da* APIXABAN 5 MG TABLET Take 5 mg by mouth twice charleen* Problem List As Of Date 01/13/2018 Noted Resolved IRINA (acute kidney injury) (HCC) [N17.9] INVALID FOR* More... Malnutrition of moderate degree (HCC) [E44.0] INVALID FOR* Hyperkalemia [E87.5] INVALID FOR* More... Rectus sheath hematoma [S30.1XXA] INVALID FOR* More... Anemia [D64.9] INVALID FOR* More... Thrombocytopenia (HCC) [D69.6] INVALID FOR* More... Lymphadenopathy [R59.1] INVALID FOR* More... Atrial fibrillation (HCC) [I48.91] INVALID FOR* More... CVA, old, dysphagia [I69.391] INVALID FOR* More... CAD (coronary artery disease) [I25.10] INVALID FOR* More... HTN (hypertension) [I10] INVALID FOR* More... 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 Obesity, Class I, BMI 30-34.9 [E66.9] INVALID FOR* Preop testing [Z01.818] INVALID FOR* More... Subacute bacterial endocarditis [I33.0] INVALID FOR* Encounter Status:Closed by DILCIA CRAIG on 01/13/18 CNOV Observed: 01/13/2018 Status: COMPLETED Source: [place] 8:30 AM [facility] REPOSITORY Office Visit ([place]) FRANK RIVERA ([id number]) 1955 M T Date Time Provider Department [facility] During your visit today, we recorded the following information about you: Referring Provider: CINTIA WILEY [[id number]] Allergies As of Date: 01/13/2018 Noted Allergy Reaction PENICILLIN 12/24/2017 4 - Hives Date Reviewed: 01/13/2018 Reviewed by: Gisella (Rn) DIEUDONNE Regalado - Fully Assessed Reason for Visit: Spirometry [191] Primary Visit Diagnosis:Dyspnea, unspecified type [R06.00] Prescriptions as of 01/13/2018 Sig: ATORVASTATIN 80 MG TABLET Take 80 mg by mouth once charleen* HYDRALAZINE 25 MG TABLET Take 25 mg by mouth every 8 h* ASCORBIC ACID-ASCORBATE SODIU* Take 500 mg by mouth once azucena* LEVOTHYROXINE 200 MCG TABLET Take 200 mcg by mouth daily b* MAGNESIUM 200 MG ( MAGNESIU* Take 2 tablets by mouth once * METOPROLOL TARTRATE 25 MG TAB* Take 12.5 mg by mouth twice d* FERROUS SULFATE 325 MG (65 MG* Take 325 mg by mouth daily wi* PREDNISONE 20 MG TABLET Take 60 mg by mouth once charleen* PANTOPRAZOLE 20 MG TABLET,DEL* Take 40 mg by mouth twice azucena* CYANOCOBALAMIN (VIT B-12) 100* Take 500 mcg by mouth once da* APIXABAN 5 MG TABLET Take 5 mg by mouth twice charleen* Problem List As Of Date 01/13/2018 Noted Resolved IRINA (acute kidney injury) (HCC) [N17.9] INVALID FOR* More... Malnutrition of moderate degree (HCC) [E44.0] INVALID FOR* Hyperkalemia [E87.5] INVALID FOR* More... Rectus sheath hematoma [S30.1XXA] INVALID FOR* More... Anemia [D64.9] INVALID FOR* More... Thrombocytopenia (HCC) [D69.6] INVALID FOR* More... Lymphadenopathy [R59.1] INVALID FOR* More... Atrial fibrillation (HCC) [I48.91] INVALID FOR* More... CVA, old, dysphagia [I69.391] INVALID FOR* More... CAD (coronary artery disease) [I25.10] INVALID FOR* More... HTN (hypertension) [I10] INVALID FOR* More... 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 Obesity, Class I, BMI 30-34.9 [E66.9] INVALID FOR* Preop testing [Z01.818] INVALID FOR* More... Subacute bacterial endocarditis [I33.0] INVALID FOR* Encounter Status:Closed by DILCIA CRAIG on 01/13/18 CBC AND DIFFERENTIAL Collected: 01/13/2018 Status: F Source: [place] 3:50 AM [facility] REPOSITORY TYPE CODE TESTS RESULT OUT OF REFERENCE UNITS RANGE LAB WBC 3.70-11.00 k/uL Low WBC 3.51 LAB RBC 4.20-6.00 m/uL Low RBC 2.29 LAB HGB 13.0-17.0 g/dL Low Hemoglobin 7.2 LAB HCT 39.0-51.0 % Low Hematocrit 22.3 LAB MCV 80.0-100.0 fL MCV 97.4 LAB MCH 26.0-34.0 pG MCH 31.4 LAB MCHC 30.5-36.0 g/dL MCHC 32.3 LAB RDWCV 11.5-15.0 % RDW-CV High 17.9 LAB PLTCT 150-400 k/uL Low Platelet Count 98 Result Comment: No clot detected. LAB MPV 9.0-12.7 fL MPV 9.5 LAB ANEUT % Neut% 59.2 LAB AANEUT 1.45-7.50 k/uL Abs Neut 2.07 LAB ALYMP % Lymph% 28.5 LAB AALYMP 1.00-4.00 k/uL Abs Lymph 1.00 LAB AMONO % Pope% 10.8 LAB AAMONO <0.87 k/uL Abs Pope 0.38 LAB AEOS % Eosin% 0.6 LAB AAEOS <0.46 k/uL Abs Eosin <0.03 LAB ABASO % Baso% 0.9 LAB AABASO <0.11 k/uL Abs Baso 0.03 LAB AUNRBC 0 /100 WBC NRBCs 0.0 LAB ABNRBC <0.01 k/uL Absolute nRBC <0.01 LAB DTYP DTYPE Auto Diff Performed By: #### CBCDIF, MG1, PHOS, BMP #### [facility] [address] [place], [place] [address] MAGNESIUM Collected: 01/13/2018 Status: F Source: [place] 3:50 AM [facility] REPOSITORY TYPE CODE TESTS RESULT OUT OF REFERENCE UNITS RANGE LAB MG 1.7-2.3 mg/dL Magnesium 1.9 Performed By: #### CBCDIF, MG1, PHOS, BMP #### [facility] [employer] [address] [place], [place] [address] PHOSPHORUS Collected: 01/13/2018 Status: F Source: [place] 3:50 AM [facility] REPOSITORY TYPE CODE TESTS RESULT OUT OF REFERENCE UNITS RANGE LAB PHOS 2.7-4.8 mg/dL Low Phosphorus 2.6 Performed By: #### CBCDIF, MG1, PHOS, BMP #### [facility] [address] [place], [place] [address] BASIC METABOLIC PANL Collected: 01/13/2018 Status: F Source: [place] 3:50 AM [facility] REPOSITORY TYPE CODE TESTS RESULT OUT OF REFERENCE UNITS RANGE LAB GLU 74-99 mg/dL Glucose 81 Result Comment: The [place] Diabetes Association (ADA) provides guidance for cutoff values for fasting glucose and random glucose. The ADA defines fasting as no caloric intake for at least 8 hours. Fas ting plasma glucose results between 100 to 125 mg/dL indicate increased risk for diabetes (prediabetes). Fasting plasma glucose results greater than or equal to 126 mg/dL meet the criteria for diagnosis of diabetes. In the absence of unequivocal hyperglycemia, results should be confirmed by repeat testing. In a patient with classic symptoms of hyperglycemia or hyperglycemic crisis, random plasma glucose results greater than or equal to 200 mg/dL meet the criteria for diagnosis of diabetes. Reference: Standards of Medical Care in Diabetes 2016, [place] Diabetes Association. Diabetes Care. 2016.39(Suppl 1). LAB BUN 9-24 mg/dL BUN High 25 LAB CRET 0.73-1.22 mg/dL Creatinine High 4.30 Result Comment: Result rechecked. LAB NA 136-144 mmol/L Sodium Low 132 LAB K 3.7-5.1 mmol/L Potassium 4.4 LAB CL 97-105 mmol/L Chloride 97 LAB CO2 22-30 mmol/L CO2 27 LAB AGAP 9-18 mmol/L Anion Low Gap 8 LAB CA 8.5-10.2 mg/dL Calcium, Low Total 8.1 LAB GFRAA eGFR- Amer. 17 LAB GFRNAA . eGFR-All Other Races 14 Result Comment: eGFR (Estimated GFR) Units of measure: mL/min/1.73 meters squared eGFR is derived from the reexpressed MDRD Study equation using the following parameters: serum creatinine, age, gender and race. The creatinine assay has been calibrated to be traceable to IDSC. An eGFR <60 mL/min/1.73m2 for >3 months is consistent with chronic kidney disease. Refer to KDOQI guidelines for clinical interpretation. In patients with unstable renal function, e.g. those with acute kidney injury, the eGFR may not accurately reflect actual GFR. Performed By: #### CBCDIF, MG1, PHOS, BMP #### [facility] [address] [address] NURSING PROG Observed: 01/12/2018 Status: COMPLETED Source: [place] 9:00 PM [facility] REPOSITORY HNO ID: [id number] Author: Benson MarieRn) DIEUDONNE Zazueta Service: Nursing Author Type: Registered Nurse Type: Nursing Progress Note Filed: 01/12/2018 10:51 PM Note Text: Nursing Progress Note Patient Name: Frank Rivera Patient Location: [address]07-24-07 Transfer Note: Patient transferred out to room/unit 5-05-28 in stable condition. Actions taken: No futher actions taken at this time. Will continue to monitor and check with patient. This note was completed by: Benson Zazueta RN NURSING PROG Observed: 01/12/2018 Status: COMPLETED Source: [place] 9:00 PM [facility] REPOSITORY HNO ID: [id number] Author: Natalie MarieRn) Nino, RN Service: (none) Author Type: Registered Nurse Type: Nursing Progress Note Filed: 01/12/2018 10:59 PM Note Text: Nursing Progress Note Patient Name: Frank Rivera Patient Location: [address]07-24-07 Transfer Note: Patient transferred into room/unit J53-08 in stable condition. Actions taken: Patient oriented to environment, call light, TV, and bed controls. Patient AANDOx3. Falls protocol in place. Dual skin assessment done with DIEUDONNE [place]. See skin and would flowsheet. No pressure ulcers noted. Patient resting comfortably in bed. Will continue to monitor and check back with patient. This note was completed by: Natalie Oneill RN CONSULT PROG Observed: 01/12/2018 Status: COMPLETED Source: [place] 7:13 PM [facility] REPOSITORY HNO ID: [id number] Author: Janae Cao Service: Cardiac Surgery Author Type: Nurse Practitioner Type: Consult Progress Note Filed: 01/12/2018 7:25 PM Note Text: [facility] CONSULT PROGRESS NOTE Frank Rivera [id number] CONSULTING SERVICE: Cardiothoracic Surgery PLAN: Dr. Parker would like a Neuro consult prior to proceeding with surgery. Tentative surgery date will be early next week. SUBJECTIVE: INTERVAL HISTORY: No acute events. Clinically stable. OBJECTIVE: MEDICATIONS: Current hospital medications: doxycycline 100 mg in D5W 250 mL Vial-Mate (VIBRAMYCIN) 100 mg INTRAVENOUS q 12 H cefTRIAXone 2 g in D5W 100 mL MB+ (ROCEPHIN) 2 g INTRAVENOUS q 24 H docusate sodium 100 mg cap(s) (COLACE) 100 mg ORAL BID PRN polyethylene glycol 3350 17 g packet (MIRALAX, GLYCOLAX) 17 g ORAL DAILY PRN senna-docusate 8.6-50 mg 1 tablet (SENNA-S) 1 tablet ORAL/FEEDING TUBE BID PRN calcium carbonate 1,000 mg chewable tab(s) (TUMS) 1,000 mg ORAL/FEEDING TUBE BID PRN acetaminophen 650 mg tab(s) (TYLENOL) 650 mg ORAL q 4 H PRN sodium chloride 0.65 % 2 [place] (AYR, OCEAN) 2 [place] EACH NOSTRIL TID PRN khxsnwhj-bnuu-ccjpv acid chewable tablet (CENTRUM) 1 tablet ORAL DAILY cholecalciferol 3,000 Units tab(s) (VITAMIN D3) 3,000 Units ORAL DAILY cyanocobalamin 500 mcg tab(s) (VITAMIN B-12) 500 mcg ORAL DAILY thiamine 100 mg tab(s) (VITAMIN B1) 100 mg ORAL DAILY diphenhydrAMINE 25 mg (BENADRYL) 25 mg ORAL q 6 H PRN aspirin, enteric coated 81 mg tab(s) 81 mg ORAL DAILY metoprolol tartrate (short acting) 12.5 mg tab(s) (LOPRESSOR) 12.5 mg ORAL BID tamsulosin ER 0.4 mg cap(s) (FLOMAX) 0.4 mg ORAL DAILY pantoprazole DR 40 mg tab(s) (PROTONIX) 40 mg ORAL BID levothyroxine 200 mcg tab(s) (SYNTHROID) 200 mcg ORAL BEFORE BREAKFAST DAILY atorvastatin 80 mg tab(s) (LIPITOR) 80 mg ORAL AT BEDTIME PHYSICAL EXAM: 01/12/18 1252 01/12/18 1356 01/12/18 1553 01/12/18 1718 BP: 125/60 140/63 126/66 115/63 Pulse: 72 65 60 62 Resp: 18 18 18 Temp: 36.8 ?C (98.3 ?F) 37.1 ?C (98.7 ?F) 37.4 ?C (99.3 ?F) TempSrc: Oral Oral Oral SpO2: 99% 95% 94% Weight: Height: SIGNATURE: Janae Cao APRN.DIRECTOR OF INDUSTRIAL RELATIONS PAGER: [phone] DATE of SERVICE: 01/12/2018 TIME of SERVICE: 7:21 PM CONSULT PROG Observed: 01/12/2018 Status: COMPLETED Source: [place] 4:06 PM [facility] REPOSIT[facility] O ID: [id number] Author: Binu Christian Service: Nephrology Author Type: Physician Type: Consult Progress Note Filed: 01/12/2018 4:11 PM Note Text: Renal Consults F/U January 12, 2018 S: No major events. Seen on IHD. Anuric. Current hospital medications: doxycycline 100 mg in D5W 250 mL Vial-Mate (VIBRAMYCIN) 100 mg INTRAVENOUS q 12 H cefTRIAXone 2 g in D5W 100 mL MB+ (ROCEPHIN) 2 g INTRAVENOUS q 24 H docusate sodium 100 mg cap(s) (COLACE) 100 mg ORAL BID PRN polyethylene glycol 3350 17 g packet (MIRALAX, GLYCOLAX) 17 g ORAL DAILY PRN senna-docusate 8.6-50 mg 1 tablet (SENNA-S) 1 tablet ORAL/FEEDING TUBE BID PRN calcium carbonate 1,000 mg chewable tab(s) (TUMS) 1,000 mg ORAL/FEEDING TUBE BID PRN acetaminophen 650 mg tab(s) (TYLENOL) 650 mg ORAL q 4 H PRN sodium chloride 0.65 % 2 [place] (AYR, OCEAN) 2 [place] EACH NOSTRIL TID PRN wvwtkkly-mfii-bpxrk acid chewable tablet (CENTRUM) 1 tablet ORAL DAILY cholecalciferol 3,000 Units tab(s) (VITAMIN D3) 3,000 Units ORAL DAILY cyanocobalamin 500 mcg tab(s) (VITAMIN B-12) 500 mcg ORAL DAILY thiamine 100 mg tab(s) (VITAMIN B1) 100 mg ORAL DAILY diphenhydrAMINE 25 mg (BENADRYL) 25 mg ORAL q 6 H PRN aspirin, enteric coated 81 mg tab(s) 81 mg ORAL DAILY metoprolol tartrate (short acting) 12.5 mg tab(s) (LOPRESSOR) 12.5 mg ORAL BID tamsulosin ER 0.4 mg cap(s) (FLOMAX) 0.4 mg ORAL DAILY pantoprazole DR 40 mg tab(s) (PROTONIX) 40 mg ORAL BID levothyroxine 200 mcg tab(s) (SYNTHROID) 200 mcg ORAL BEFORE BREAKFAST DAILY atorvastatin 80 mg tab(s) (LIPITOR) 80 mg ORAL AT BEDTIME PHYSICAL EXAM: Patient Vitals for the past 24 hrs: BP Temp Temp src Pulse Resp SpO2 Weight 01/12/18 1553 126/66 37.1 ?C (98.7 ?F) Oral 60 18 95 % - 01/12/18 1356 140/63 36.8 ?C (98.3 ?F) Oral 65 18 99 % - 01/12/18 1252 125/60 - - 72 - - - 01/12/18 1136 120/63 36.4 ?C (97.5 ?F) Oral 67 20 95 % - 01/12/18 0528 130/69 36.8 ?C (98.2 ?F) Oral 60 18 95 % 106.1 kg (234 lb) 01/11/187 105/62 36.7 ?C (98 ?F) Oral (!) 58 19 94 % - 01/11/18 1749 111/65 36.8 ?C (98.2 ?F) Oral 68 20 99 % - VS: Patient Vitals for the past 4 hrs: BP Pulse Temp Resp SpO2 01/12/18 1553 126/66 60 37.1 ?C (98.7 ?F) 18 95 % 01/12/18 1356 140/63 65 36.8 ?C (98.3 ?F) 18 99 % 01/12/18 1252 125/60 72 - - - I/O: Intake/Output Summary (Last 24 hours) at 01/12/18 1606 Last data filed at 01/12/18 1400 Gross per 24 hour Intake 1900 ml Output 2000 ml Net -100 ml Intake/Output Summary (Last 24 hours) at 01/12/18 0659 Last data filed at 01/12/18 0600 Gross per 24 hour Intake 1300 ml Output 0 ml Net 1300 ml General: NAD Neck: Trachea midline. No mass palpable Lungs: Clear to auscultation, no crackles or wheezing. CV: normal, Regular rate and rhythm, + murmur, no rubs. ACCESS: RIJ temp. No secretions. Abd: + bowel sounds, no distension. Neuro: no asterixis, no focal deficits. Ext: + edema LABS: Recent Labs 01/12/18 0439 01/11/18 0410 01/10/18 0401 CREAT 6.05* 4.90* 3.49* BUN 40* 27* 17 NA 131* 132* 134* K 5.3* 4.7 4.4 CHLOR 97 98 100 CO2 21* 24 25 GLUC 82 81 71* CA 8.2* 7.7* 7.9* MG 2.0 1.9 1.9 P 3.2 2.7 2.2* WBC 4.33 4.40 3.78 HB 7.4* 7.0* 7.5* MCV 96.3 95.7 97.5 PLT 93* 90* 92* IMPRESSION: 62 year old male with PMH including A-fibb, s/p AVR, history of CVA, Fe deficiency anemia and hemolytic anemia presented to [facility] as a transfer from [facility] on 12/24. ?Initial presentation to OSH was due to suspected GI bleed. Patient had low Hg however no diagnostic findings on Colonoscopy, EGD or tagged RBC scan. Patient was transferred to [facility] upon worsening of renal function. ? 1. 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 2. Electrolytes ?-Hyponatremia ? 3. Normocytic Anemia ?-Likely multifactorial cause including blood loss, hemolysis as well as acute renal failure ?-No concerning finding on BM bx. Hematology has signed off ? 5. Volume Overload. Edema likely also exacerbated by hypoalbuminemia ? Seen on dialysis for acute renal failure. Tolerating procedure. Will continue supportive therapy while inpatient. Plan for next session . As mentioned yesterday, please keep us updated to coordinate with dialysis and exchange of catheter depending on surgery. Thank You for allowing us to participate in his care. Binu Christian MD. [facility] [phone] Staff. Nephrology and Hypertension. January 12, 2018 4:06 PM CONSULT PROG Observed: 01/12/2018 Status: COMPLETED Source: [place] 3:45 PM [facility] REPOSITORY O ID: [id number] Author: Rohit Olivas Service: Infectious Disease Author Type: Physician Type: Consult Progress Note Filed: 01/12/2018 3:57 PM Note Text: INFECTIOUS DISEASE CONSULT SERVICE PROGRESS NOTE Patient Name: Frank Rivera Interval Events: Course reviewed Dialysis this morning Feels about the same Waiting transition to the cardiology service No new symptoms In addition to those reviewed and documented in the HPI all other systems reviewed and were negative. MEDICATIONS Medications reviewed. Current hospital medications: doxycycline 100 mg in D5W 250 mL Vial-Mate (VIBRAMYCIN) 100 mg INTRAVENOUS q 12 H cefTRIAXone 2 g in D5W 100 mL MB+ (ROCEPHIN) 2 g INTRAVENOUS q 24 H docusate sodium 100 mg cap(s) (COLACE) 100 mg ORAL BID PRN polyethylene glycol 3350 17 g packet (MIRALAX, GLYCOLAX) 17 g ORAL DAILY PRN senna-docusate 8.6-50 mg 1 tablet (SENNA-S) 1 tablet ORAL/FEEDING TUBE BID PRN calcium carbonate 1,000 mg chewable tab(s) (TUMS) 1,000 mg ORAL/FEEDING TUBE BID PRN acetaminophen 650 mg tab(s) (TYLENOL) 650 mg ORAL q 4 H PRN sodium chloride 0.65 % 2 [place] (AYR, OCEAN) 2 [place] EACH NOSTRIL TID PRN zvlquciw-itgh-bilyt acid chewable tablet (CENTRUM) 1 tablet ORAL DAILY cholecalciferol 3,000 Units tab(s) (VITAMIN D3) 3,000 Units ORAL DAILY cyanocobalamin 500 mcg tab(s) (VITAMIN B-12) 500 mcg ORAL DAILY thiamine 100 mg tab(s) (VITAMIN B1) 100 mg ORAL DAILY diphenhydrAMINE 25 mg (BENADRYL) 25 mg ORAL q 6 H PRN aspirin, enteric coated 81 mg tab(s) 81 mg ORAL DAILY metoprolol tartrate (short acting) 12.5 mg tab(s) (LOPRESSOR) 12.5 mg ORAL BID tamsulosin ER 0.4 mg cap(s) (FLOMAX) 0.4 mg ORAL DAILY pantoprazole DR 40 mg tab(s) (PROTONIX) 40 mg ORAL BID levothyroxine 200 mcg tab(s) (SYNTHROID) 200 mcg ORAL BEFORE BREAKFAST DAILY atorvastatin 80 mg tab(s) (LIPITOR) 80 mg ORAL AT BEDTIME Examination: BP 140/63 Pulse 65 Temp 36.8 ?C (98.3 ?F) (Oral) Resp 18 Ht 193 cm (6' 4) Wt 106.1 kg (234 lb) SpO2 99% BMI 28.48 kg/m? Temp (24hrs), Av.7 ?C (98 ?F), Min:36.4 ?C (97.5 ?F), Max:36.8 ?C (98.3 ?F) General appearance: Resting in bed, no distress Skin: no rash Head: neg Eyes: anicteric Oropharynx: neg Neck: right ij hd catheter and CBC Back: not examined Lungs: bilateral breath sounds anteriorly Heart: rrnl Abdomen: soft Extremities: Bilateral lower extremity edema - improved, some petechiae Musculoskeletal: Negative Peripheral pulses: radial pulses palpable Exam unchanged as compared with 01/11 other than as edited above. Lab, Microbiology and Imaging Data: Personally reviewed imaging studies, laboratory results, and microbiology results. ASSESSMENT: 62-year-old with multiple medical problems including but not limited to atrial fibrillation, hypertension, and aortic stenosis status post aortic valve replacement in April 2017 with a permanent pacemaker placed shortly thereafter was transferred to our hospital on 12/24 for further evaluation of an acute kidney injury. He initially presented to an outside hospital on 12/19 for further evaluation of a new anemia and renal failure after presenting to his primary care physician with fatigue and shortness of breath. He was treated empirically with prednisone for a glomerular nephritis and transferred. 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 Positive serologies for antineutrophil cytoplasmic antibodies and myeloperoxidase. He is requiring renal replacement therapy. Notable aspects of his workup thus far from infectious disease perspective has included: 2 blood cultures 12/25-no growth to date Bartonella serologies-IgG for Bartonella henselae greater than 1:1024, IgG for Bartonella amato 1:1024 Transesophageal echocardiogram 01/01-2-3+ TR, 3+ AI, thickening of the aorto-mitral curtain and posterior LA wall suggestive of either hematoma or active infection, small mobile echodensity within the RA-vegetation versus thrombus CT chest cardiac 01/07-moderate diffuse leaflet calcification CT brain 01/07-no acute findings CT abdomen and pelvis 01/06-evolving large rectus sheath hematoma 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 Interestingly, despite his titers he has no obvious epidemiological link to this genus. In speaking with him and in reviewing his records there was no suspicion for endocarditis of the time of his operation in April. He continues to require renal replacement therapy. He is being considered for open heart surgery. RECOMMENDATIONS: Continue doxycycline 100 mg IV every 12 hours Continue ceftriaxone 2 g IV every 24 hours No infectious disease contraindication open heart surgery Assessment and plan unchanged as compared with 01/11 except as edited above. Monitoring for ongoing therapeutic and potential untoward effect of antibiotic therapy. Following Signature: Rohit Olivas MD Pager: [phone] VITAMIN D 25 HYDROXY Collected: 01/12/2018 Status: F Source: [place] 12:09 PM [facility] REPOSITORY TYPE CODE TESTS RESULT OUT OF REFERENCE UNITS RANGE LAB VITD 31.0-80.0 ng/mL Low Vitamin D 25 26.2 Hydroxy Result Comment: Classification of 25 OH Vitamin D status: Insufficiency/Moderate Deficiency: < or = 30 ng/mL Sufficiency/Optimal Levels: 31 to 80 ng/mL Toxicity: > 100 ng/mL Test performed by chemiluminescent immunoassay. Performed By: #### VITD #### [facility] [employer] [address] [place], [place] [address] PROGRESS Observed: 01/12/2018 Status: COMPLETED Source: [place] 7:50 AM [facility] REPOSITORY HNO ID: [id number] Author: Vasyl Huertas Service: Hospital Medicine Author Type: Physician Type: Progress Notes Filed: 01/12/2018 10:12 PM Note Text: INPATIENT PROGRESS NOTE For questions regarding this patient, please page [phone] during 7 a.m. - 5 p.m. After 5 p.m., please page on-call Adrien pager [phone] for concerns. Brief Plan - Bartonella positive, on IV doxycycline and ceftriaxone - tx planned to Cardiology floor 01/12 - still not producing urine, no HD done 01/11, was put on HD for IRINA (no hx of CKD) - watching Hgb, tx if < 7 - CTS consulted: Dr. Cuauhtemoc Parker, CRIS following - PFTs on , CT surgery to review [facility] 03/2017 films - Monitor H/H and transfuse Hg < 7 mg/dL or platelets < 50 Interval History No acute events overnight. Doing well this morning. Denies any symptoms, no fever, chills, no shortness of breath. Physical Exam BP 130/69 Pulse 60 Temp 36.8 ?C (98.2 ?F) (Oral) Resp 18 Ht 193 cm (6' 4) Wt 106.1 kg (234 lb) SpO2 95% BMI 28.48 kg/m? -I/O: Intake/Output Summary (Last 24 hours) at 01/12/18 0750 Last data filed at 01/12/18 0600 Gross per 24 hour Intake 1300 ml Output 0 ml Net 1300 ml GENERAL: Alert, no distress, cooperative Full dentures SKIN: Skin color, texture, turgor normal. No rashes or lesions. LUNGS: CTAB CARDIAC: Murmur 2/6, systolic, right upper sternal border ABDOMEN: Soft, non-distended, LLQ tenderness, +BS EXTREMETIES: No ulcers, 1+ pitting edema to knees, (seems less per my exam, only to lower tibial area L > R) NEURO: Alert, oriented X 3.?motor exam grossly normal. Sensation grossly intact., Cranial nerves II-XII intact PULSES: 2+ radial Medications Current hospital medications: doxycycline 100 mg in D5W 250 mL Vial-Mate (VIBRAMYCIN) 100 mg INTRAVENOUS q 12 H cefTRIAXone 2 g in D5W 100 mL MB+ (ROCEPHIN) 2 g INTRAVENOUS q 24 H docusate sodium 100 mg cap(s) (COLACE) 100 mg ORAL BID PRN polyethylene glycol 3350 17 g packet (MIRALAX, GLYCOLAX) 17 g ORAL DAILY PRN senna-docusate 8.6-50 mg 1 tablet (SENNA-S) 1 tablet ORAL/FEEDING TUBE BID PRN calcium carbonate 1,000 mg chewable tab(s) (TUMS) 1,000 mg ORAL/FEEDING TUBE BID PRN acetaminophen 650 mg tab(s) (TYLENOL) 650 mg ORAL q 4 H PRN sodium chloride 0.65 % 2 [place] (AYR, OCEAN) 2 [place] EACH NOSTRIL TID PRN obncyxpt-knwv-fkbgm acid chewable tablet (CENTRUM) 1 tablet ORAL DAILY cholecalciferol 3,000 Units tab(s) (VITAMIN D3) 3,000 Units ORAL DAILY cyanocobalamin 500 mcg tab(s) (VITAMIN B-12) 500 mcg ORAL DAILY thiamine 100 mg tab(s) (VITAMIN B1) 100 mg ORAL DAILY diphenhydrAMINE 25 mg (BENADRYL) 25 mg ORAL q 6 H PRN aspirin, enteric coated 81 mg tab(s) 81 mg ORAL DAILY metoprolol tartrate (short acting) 12.5 mg tab(s) (LOPRESSOR) 12.5 mg ORAL BID tamsulosin ER 0.4 mg cap(s) (FLOMAX) 0.4 mg ORAL DAILY pantoprazole DR 40 mg tab(s) (PROTONIX) 40 mg ORAL BID levothyroxine 200 mcg tab(s) (SYNTHROID) 200 mcg ORAL BEFORE BREAKFAST DAILY atorvastatin 80 mg tab(s) (LIPITOR) 80 mg ORAL AT BEDTIME Labs CBC: Recent Labs 01/12/1843801/11/180 01/10/18 04001/09/18 04201/08/18 0513 01/07/1842301/06/18 040 WBC 4.33 4.40 3.78 3.68* 3.83 3.80 4.48 HB 7.4* 7.0* 7.5* 7.2* 6.9* 7.2* 7.3* HCT 23.1* 22.2* 23.7* 21.8* 21.4* 22.4* 23.1* PLT 93* 90* 92* 86* 89* 95* 91* MCV 96.3 95.7 97.5 95.2 95.1 95.3 94.7 RDWCV 17.9* 17.9* 17.8* 17.5* 17.3* 17.6* 17.1* NEUTP 60.2 65.0 56.3 74.0 59.0 56.9 62.0 ABSNEUT 2.59 2.84 2.12 2.72 2.24 2.14 2.78 LYMPHP 27.5 26.1 31.5 17.4 31.6 32.6 27.2 MONOP 10.9 7.7 10.6 5.2 8.4 9.2 9.2 EODINP 0.9 0.7 0.8 1.7 0.5 0.8 0.9 BMP: Recent Labs 01/12/1843801/11/180 01/10/18 04001/09/18 04201/08/18 0513 01/07/18 0424 01/06/18 0407 GLUC 82 81 71* 80 77 80 82 NA 131* 132* 134* 134* 132* 132* 133* K 5.3* 4.7 4.4 4.5 4.4 4.4 4.6 CHLOR 97 98 100 99 97 98 96* CO2 21* 24 25 26 26 25 24 ANION 13 10 9 9 9 9 13 BUN 40* 27* 17 19 28* 18 30* CREAT 6.05* 4.90* 3.49* 4.19* 5.47* 4.43* 6.01* CHEM: Recent Labs 01/12/18 0439 01/11/18 0410 01/10/18 0401 01/09/18 0425 01/08/18 0513 01/07/18 0424 01/06/18 0407 ALB -- -- -- -- 2.1* -- -- TPROT -- -- -- -- 6.1* -- -- CA 8.2* 7.7* 7.9* 7.9* 7.8* 7.7* 7.8* MG 2.0 1.9 1.9 1.9 1.9 1.7 1.9 HEPATIC: Recent Labs 01/08/18512 ALKPHOS 139* ALT 30 AST 49* TBILI 0.6 COAG: Recent Labs 01/08/18512 APTT 33.5* INR 1.3 URINALYSIS:No results for input(s): PH, SPGR, UGLUC, UBILI, UKET, UHB, UPROT, UROBIL, UWBC, SSA in the last 168 hours. Invalid input(s): NITR CARDIAC: No results for input(s): CKTEST, CKMB, CKMBP, TROPT, PBNP in the last 168 hours. Imaging ECHO TRANSESOPHAGEAL 01/01/2018 - Exam indication: ?Endocarditis - The left ventricle is normal in size. Left ventricular systolic function is normal. EF = 60 ? 5% (visual est.) - The right ventricle is dilated. Right ventricular systolic function is mildly decreased. - The left atrial cavity is dilated. - Previous RUDY ligation. Small residual RUDY. - The right atrial cavity is dilated. - There is moderate (2+ - 3+) tricuspid valve regurgitation. 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 There is moderately severe (3+) aortic valve regurgitation due to paravalvular endocarditis. - There is no patent foramen ovale as detected by Doppler and saline contrast. - The Aortic valve prosthesis appears to be well seated with evidence of mild degeneration and without any obvious mobile echodensity on its leaflets. There is thickening of the Aorto-Mitral curtain and posterior LA wall which is suggestive of either hematoma or active infection. - There does not appear to be any transvalvular AI however there is a diastolic flow arising from the subvalvular region which may (Clip #47, #42) or may represent 3+ paravalvular regurgitation with a very eccentric jet. Consider Cardiac CT for better characterization and to r/o the presence of a fistula or abscess. - There is a a small mobile echodensity within the RA which may be attached either ?to the Venous catheter or the atrial portion of one of the pacemaker leads (1.2cm ?x 0.55 cm, Clip #28). This may represent vegetation or thrombus. - Exam was compared with the prior CC echocardiographic exam performed on 12/25/2017. Thrombus/Vegetation on pacemaker lead/venous catheter and possible paralvalvular leak. XR CHEST 1V FRONTAL 12/27/2017 Lines, Tubes, and Devices: ?Right IJ line mid SVC. Stable pacemaker. Lungs and Pleura: ?Bilateral effusions and overlying opacity similar to prior. No pneumothorax. Cardiomediastinal silhouette: ?Stable cardiac silhouette. ? CT ABD/PEL WO IVCON 12/27/2017 LARGE LEFT RECTUS SHEATH HEMATOMA, STABLE OR SLIGHTLY INCREASED IN SIZE SINCE 12/25/2017. 3.3 CM ROUND LOW-ATTENUATION LESION ADJACENT TO THE CELIAC AXIS WHICH MAY BE AN ENLARGED LYMPH NODE. CHOLELITHIASIS WITHOUT EVIDENCE CHOLECYSTITIS. HEPATIC STEATOSIS. ? US ABD RT UPPER QUADRANT AND SPLEEN 12/26/2017 CHOLELITHIASIS IN A DISTENDED GALLBLADDER WITHOUT OTHER EVIDENCE OF ACUTE CHOLECYSTITIS. DIFFUSE HEPATIC STEATOSIS. The craniocaudal length of the spleen is 10.1 cm, normal. There are no splenic lesions. ? CT ABD/PEL WO IVCON 12/25/2017 Moderate LEFT rectus sheath hematoma Diffuse hepatic steatosis. 2.6 cm low-attenuation structure abutting the celiac, possibly an enlarged lymph node. ?Further evaluation with contrast-enhanced study should be considered. Cholelithiasis without evidence of acute cholecystitis. ? LEG DVT JORGE LUIS BOBBY 12/25/2017 RIGHT SIDE - DEEP VEINS Negative for acute deep vein thrombosis. Thickened red[place], patent distal external iliac vein and common femoral vein. Only segments visualized of the posterior tibial veins and peroneal veins. Multiple enlarged lymph nodes noted in the right groin with the largest measuring aproximately: 1.4 x 1.5 x 0.9 cm. RIGHT SIDE - SUPERFICIAL VEINS Thickened redmond, patent great saphenous?vein. LEFT SIDE - DEEP VEINS Only segments visualized of the posterior tibial veins and peroneal veins. Multiple enlarged lymph nodes noted in the right groin with the largest measuring aproximately: 2.3 x 1.8 x 0.7 cm. 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 ? XR CHEST 1V FRONTAL Lines, tubes, and devices: ?The patient is status post median sternotomy and left 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 clip placement. ?Left pacemaker device is in place with leads in the right atrium and the right ventricle. ?Surgical clips overlie the upper abdomen. Lungs and pleura: ?Patchy reticular opacities are noted, likely related to pulmonary edema. Hazy opacity overlying the right lung base is likely related to small right pleural effusion and adjacent atelectasis/consolidation. ?Also noted is trace left pleural effusion. ?A vertically oriented lucency overlying the right lower chest is favored to be a skinfold. Cardiomediastinal silhouette: ?Cardiac silhouette is enlarged with pulmonary venous congestion. ? ECHO 12/25/2017 - Technically difficult exam due to suboptimal positioning. - Exam indication: Initial evaluation of Heart Failure - The left ventricle is moderately dilated. There is moderate concentric left ventricular hypertrophy. Left ventricular systolic function is normal. EF = 66 ? 5% (2D biplane) - The right ventricle is normal in size. Right ventricular systolic function is normal. - The left atrial cavity is severely dilated. - The right atrial cavity is dilated. - There is moderate (2+) mitral valve regurgitation. Thickened mitral valve leaflets. - There is moderate (2+ - 3+) tricuspid valve regurgitation. 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 There is moderately severe (3+) aortic valve regurgitation. The peak gradient is 39 mmHg, the mean gradient is 17 mmHg and the dimensionless valve index is 0.53. There is both valvular and paravalvular AI. There is flow reversal in the descending aorta. - Estimated right ventricular systolic pressure is?likely underestimated due to a weak or incomplete tricuspid regurgitation signal and is, at least, 70 mmHg consistent with moderately severe pulmonary hypertension. Estimated right atrial pressure is 15 mmHg. - The patient has not had a prior CC echocardiographic exam for comparison. Assessment and Plan Mr. 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 MICU transfer to initiate dialysis secondary to volume overload. Patient is now anuric IRINA-D. Bartonella prosthetic AV IE. ? 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 Cuauhtemoc Parker assigned, PFT/DLCO to complete CTS pre-op evaluation, ?Neurology evaluation given recent stroke, ?repeat cath #Pancytopenia #Hemolytic anemia Presented with fatigue, shortness of breath History of UGIB secondary to Min-en-Y (most recently 2015), OSH EGD/C-scope/tagged RBC scan showed no evidence of bleed Requiring pRBC transfusion x 3 during this hospitalization Concerns for hemolytic process, not Petar driven--peripheral smear showed evidence of scant schistocytes, yojana cells, rare spherocytes, thrombocytopenia. ?Elevated Igs, will try to continue to workup lymphoproliferative process as potential etiology Plan: - Transfuse Hgb < 7, Plts < 50 ?#Atrial fibrillation S/p PPM for sick sinus syndrome Metoprolol 12.5mg BID home dose held for acute anemia, which has now stabilized HR in 80s-low 100s, HDS Plan: currently off AC due to rectus sheath hematoma -Continue metoprolol 12.5mg BID -Tele ? 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 - continue IHD - continue sodium bicarbonate 650mg TID - daily BMP - f/u Nephrology recs ? #CAD - continue atorvastatin 80mg qHS ? #Mild protein-calorie malnutrition - nutritional support ? #Hypothyroidism -Continue levothyroxine 200mcg qAM ? 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 Diet: Renal DVT PPx: IPCs GI PPx: Pantoprazole 40mg qDay Fran Garner MD, MBA MS Internal Medicine [address] [address] [email or web address] Pager #: [phone] ADRIEN Arriaga ATTENDING NOTE: Chart reviewed, patient seen and examined on 01/12 at 11;30am and hernandez elements of the history and physical were discussed in detail and confirmed with the resident team. I have reviewed the above note, examined the patient and agree with the documented findings and plan of care as listed in Dr Garner's note. Any addendums above are in bold text. Assessment: Bartonella [place] prosthetic AV BE, On Rocephin, (since 01/07) + Doxycycline, (since 12/30) , cardiac status is tenuous but stable, (per ECHO + AV vegetation +3 AVR and +3 TVR) IRINA, no evidence of renal recovery and patient remains anuric, on IHD MWF, (C3 + and focal sclerosis felt to be due to BE infection) s/p AVR, (+ RUDY ligation) 04/2017 Hx of A fib + SSS + has PPM in place, (placed shortly after above cardiac surgery) + has severe pulm HTN ? related to cardiac status Recent rectus sheath hematoma with slow but steady recovery + Hypothyroid on effective replacement Anemia due to hemolysis + ADRIANNE + Ongoing hemolysis, (low Hgb + low Platelets) due to Aortic valve injury, RBC x 1 on 01/11 + Hgb stable s/p distant RNYGB, w/ ADRIANNE + B12 def, on appropriate vitamin replacement Hx of distant CVA w/ full recovery ? ? Plan: Needs AVR + TV-r in the near future Cont the same Antibx Cont IHD MWF pre surgical w/u in progress, PFTs to be done 01/13 Same oral meds for now + Plans per CARDS team: will transfer to Clinical Cards [facility] Vasyl Huertas MD FACP Attending, pager [phone] CBC AND DIFFERENTIAL Collected: 01/12/2018 Status: F Source: PLANO 4:39 AM [facility] REPOSITORY TYPE CODE TESTS RESULT OUT OF REFERENCE UNITS RANGE LAB WBC 3.70-11.00 k/uL WBC 4.33 LAB RBC 4.20-6.00 m/uL Low RBC 2.40 LAB HGB 13.0-17.0 g/dL Low Hemoglobin 7.4 LAB HCT 39.0-51.0 % Low Hematocrit 23.1 LAB MCV 80.0-100.0 fL MCV 96.3 LAB MCH 26.0-34.0 pG MCH 30.8 LAB MCHC 30.5-36.0 g/dL MCHC 32.0 LAB RDWCV 11.5-15.0 % RDW-CV High 17.9 LAB PLTCT 150-400 k/uL Low Platelet Count 93 Result Comment: No clot detected. LAB MPV 9.0-12.7 fL MPV 9.7 LAB ANEUT % Neut% 60.2 LAB AANEUT 1.45-7.50 k/uL Abs Neut 2.59 LAB ALYMP % Lymph% 27.5 LAB AALYMP 1.00-4.00 k/uL Abs Lymph 1.19 LAB AMONO % Pope% 10.9 LAB AAMONO <0.87 k/uL Abs Pope 0.47 LAB AEOS % Eosin% 0.9 LAB AAEOS <0.46 k/uL Abs Eosin 0.04 LAB ABASO % Baso% 0.5 LAB AABASO <0.11 k/uL Abs Baso <0.03 LAB AUNRBC 0 /100 WBC NRBCs 0.0 LAB ABNRBC <0.01 k/uL Absolute nRBC <0.01 LAB DTYP DTYPE Auto Diff Performed By: #### CBCDIF, BMP, MG1, PHOS #### [facility] [address] [place] [id number] BASIC METABOLIC PANL Collected: 01/12/2018 Status: F Source: PLANO 4:39 AM [facility] REPOSITORY TYPE CODE TESTS RESULT OUT OF REFERENCE UNITS RANGE LAB GLU 74-99 mg/dL Glucose 82 Result Comment: The [place] Diabetes Association (ADA) provides guidance for cutoff values for fasting glucose and random glucose. The ADA defines fasting as no caloric intake for at least 8 hours. Fas ting plasma glucose results between 100 to 125 mg/dL indicate increased risk for diabetes (prediabetes). Fasting plasma glucose results greater than or equal to 126 mg/dL meet the criteria for diagnosis of diabetes. In the absence of unequivocal hyperglycemia, results should be confirmed by repeat testing. In a patient with classic symptoms of hyperglycemia or hyperglycemic crisis, random plasma glucose results greater than or equal to 200 mg/dL meet the criteria for diagnosis of diabetes. Reference: Standards of Medical Care in Diabetes 2016, [place] Diabetes Association. Diabetes Care. 2016.39(Suppl 1). LAB BUN 9-24 mg/dL BUN High 40 LAB CRET 0.73-1.22 mg/dL Creatinine High 6.05 LAB NA 136-144 mmol/L Low Sodium 131 LAB K 3.7-5.1 mmol/L Potassium High 5.3 LAB CL 97-105 mmol/L Chloride 97 LAB CO2 22-30 mmol/L Low CO2 21 LAB AGAP 9-18 mmol/L Anion Gap 13 LAB CA 8.5-10.2 mg/dL Low Calcium, Total 8.2 LAB GFRAA eGFR- Amer. 12 LAB GFRNAA . eGFR-All Other Races 10 Result Comment: eGFR (Estimated GFR) Units of measure: mL/min/1.73 meters squared eGFR is derived from the reexpressed MDRD Study equation using the following parameters: serum creatinine, age, gender and race. The creatinine assay has been calibrated to be traceable to IDMS. An eGFR <60 mL/min/1.73m2 for >3 months is consistent with chronic kidney disease. Refer to KDOQI guidelines for clinical interpretation. In patients with unstable renal function, e.g. those with acute kidney injury, the eGFR may not accurately reflect actual GFR. Performed By: #### CBCDIF, BMP, MG1, PHOS #### [facility] [employer] [address] [place] [address] MAGNESIUM Collected: 01/12/2018 Status: F Source: PLANO 4:39 AM [facility] REPOSITORY TYPE CODE TESTS RESULT OUT OF REFERENCE UNITS RANGE LAB MG 1.7-2.3 mg/dL Magnesium 2.0 Performed By: #### CBCDIF, BMP, MG1, PHOS #### [facility] [employer] [address] [place] [phone] PHOSPHORUS Collected: 01/12/2018 Status: F Source: PLANO 4:39 AM [facility] REPOSITORY TYPE CODE TESTS RESULT OUT OF REFERENCE UNITS RANGE LAB PHOS 2.7-4.8 mg/dL Phosphorus 3.2 Performed By: #### CBCDIF, BMP, MG1, PHOS #### [place] [phone] TSH Collected: 01/12/2018 Status: F Source: PLANO 4:39 AM [facility] REPOSITORY TYPE CODE TESTS RESULT OUT OF RANGE REFERENCE UNITS LAB TSH 0.400-5.500 uU/mL High TSH 28.120 Performed By: #### TSH #### [place] [phone] CONSULT PROG Observed: 01/11/2018 Status: COMPLETED Source: PLANO 5:52 PM [facility] REPOSITORY HNO ID: [id number] Author: Janae Cao Service: Cardiac Surgery Author Type: Nurse Practitioner Type: Consult Progress Note Filed: 01/11/2018 5:56 PM Note Text: [facility] CONSULT PROGRESS NOTE Frank Rivera [id number] CONSULTING SERVICE: Cardiothoracic Surgery PLAN: Transfer to [facility] tomorrow. Dialysis. SUBJECTIVE: INTERVAL HISTORY: 62 yoM with PVE (Bartonella). Clinically stable. OBJECTIVE: MEDICATIONS: Current hospital medications: doxycycline 100 mg in D5W 250 mL Vial-Mate (VIBRAMYCIN) 100 mg INTRAVENOUS q 12 H cefTRIAXone 2 g in D5W 100 mL MB+ (ROCEPHIN) 2 g INTRAVENOUS q 24 H docusate sodium 100 mg cap(s) (COLACE) 100 mg ORAL BID PRN polyethylene glycol 3350 17 g packet (MIRALAX, GLYCOLAX) 17 g ORAL DAILY PRN senna-docusate 8.6-50 mg 1 tablet (SENNA-S) 1 tablet ORAL/FEEDING TUBE BID PRN calcium carbonate 1,000 mg chewable tab(s) (TUMS) 1,000 mg ORAL/FEEDING TUBE BID PRN acetaminophen 650 mg tab(s) (TYLENOL) 650 mg ORAL q 4 H PRN sodium chloride 0.65 % 2 [place] (AYR, OCEAN) 2 [place] EACH NOSTRIL TID PRN frwjruwl-vcyi-qtzdf acid chewable tablet (CENTRUM) 1 tablet ORAL DAILY cholecalciferol 3,000 Units tab(s) (VITAMIN D3) 3,000 Units ORAL DAILY cyanocobalamin 500 mcg tab(s) (VITAMIN B-12) 500 mcg ORAL DAILY thiamine 100 mg tab(s) (VITAMIN B1) 100 mg ORAL DAILY diphenhydrAMINE 25 mg (BENADRYL) 25 mg ORAL q 6 H PRN aspirin, enteric coated 81 mg tab(s) 81 mg ORAL DAILY metoprolol tartrate (short acting) 12.5 mg tab(s) (LOPRESSOR) 12.5 mg ORAL BID tamsulosin ER 0.4 mg cap(s) (FLOMAX) 0.4 mg ORAL DAILY pantoprazole DR 40 mg tab(s) (PROTONIX) 40 mg ORAL BID levothyroxine 200 mcg tab(s) (SYNTHROID) 200 mcg ORAL BEFORE BREAKFAST DAILY atorvastatin 80 mg tab(s) (LIPITOR) 80 mg ORAL AT BEDTIME PHYSICAL EXAM: 01/11/18 0545 01/11/18 1001 01/11/18 1052 01/11/18 1416 BP: 120/64 120/64 121/67 113/64 Pulse: (!) 58 62 (!) 58 (!) 59 Resp: Temp: 37.3 ?C (99.2 ?F) 36.6 ?C (97.9 ?F) 36.9 ?C (98.5 ?F) TempSrc: Oral Oral Oral SpO2: 96% 98% 97% Weight: Height: PHYSICAL EXAMINATION General: Alert and oriented, no distress, pleasant and cooperative. Heart: Regular, normal S1 and S2, +Murmur Lungs: Clear to auscultation bilaterally Abdomen: Benign Extremities: Feet/ankles without edema, posterior tibial pulses full and symmetrical Intake/Output Summary (Last 24 hours) at 01/11/18 1752 Last data filed at 01/11/18 1416 Gross per 24 hour Intake 890 ml Output 0 ml Net 890 ml DATA: Laboratory: Recent Labs 01/11/18 0410 01/10/18 0401 01/09/18 0425 WBC 4.40 3.78 3.68* HB 7.0* 7.5* 7.2* HCT 22.2* 23.7* 21.8* PLT 90* 92* 86* NA 132* 134* 134* K 4.7 4.4 4.5 CHLOR 98 100 99 CO2 24 25 26 BUN 27* 17 19 CREAT 4.90* 3.49* 4.19* GLUC 81 71* 80 ] SIGNATURE: Janae Cao APRN.DIRECTOR OF INDUSTRIAL RELATIONS PAGER: [phone] DATE of SERVICE: 01/11/2018 TIME of SERVICE: 5:56 PM CONSULT PROG Observed: 01/11/2018 Status: COMPLETED Source: PLANO 5:19 PM [facility] REPOSITORY O ID: [id number] Author: Binu Christian Service: Nephrology Author Type: Physician Type: Consult Progress Note Filed: 01/11/2018 5:23 PM Note Text: Renal Consults F/U January 11, 2018 S: No major events. Anuric. No complaints. Current hospital medications: doxycycline 100 mg in D5W 250 mL Vial-Mate (VIBRAMYCIN) 100 mg INTRAVENOUS q 12 H cefTRIAXone 2 g in D5W 100 mL MB+ (ROCEPHIN) 2 g INTRAVENOUS q 24 H docusate sodium 100 mg cap(s) (COLACE) 100 mg ORAL BID PRN polyethylene glycol 3350 17 g packet (MIRALAX, GLYCOLAX) 17 g ORAL DAILY PRN senna-docusate 8.6-50 mg 1 tablet (SENNA-S) 1 tablet ORAL/FEEDING TUBE BID PRN calcium carbonate 1,000 mg chewable tab(s) (TUMS) 1,000 mg ORAL/FEEDING TUBE BID PRN acetaminophen 650 mg tab(s) (TYLENOL) 650 mg ORAL q 4 H PRN sodium chloride 0.65 % 2 [place] (AYR, OCEAN) 2 [place] EACH NOSTRIL TID PRN hgadihxl-tkkr-wjtwv acid chewable tablet (CENTRUM) 1 tablet ORAL DAILY cholecalciferol 3,000 Units tab(s) (VITAMIN D3) 3,000 Units ORAL DAILY cyanocobalamin 500 mcg tab(s) (VITAMIN B-12) 500 mcg ORAL DAILY thiamine 100 mg tab(s) (VITAMIN B1) 100 mg ORAL DAILY diphenhydrAMINE 25 mg (BENADRYL) 25 mg ORAL q 6 H PRN aspirin, enteric coated 81 mg tab(s) 81 mg ORAL DAILY metoprolol tartrate (short acting) 12.5 mg tab(s) (LOPRESSOR) 12.5 mg ORAL BID tamsulosin ER 0.4 mg cap(s) (FLOMAX) 0.4 mg ORAL DAILY pantoprazole DR 40 mg tab(s) (PROTONIX) 40 mg ORAL BID levothyroxine 200 mcg tab(s) (SYNTHROID) 200 mcg ORAL BEFORE BREAKFAST DAILY atorvastatin 80 mg tab(s) (LIPITOR) 80 mg ORAL AT BEDTIME PHYSICAL EXAM: Patient Vitals for the past 24 hrs: BP Temp Temp src Pulse Resp SpO2 Weight 01/11/18 1416 113/64 36.9 ?C (98.5 ?F) Oral (!) 59 20 97 % - 01/11/18 1052 121/67 36.6 ?C (97.9 ?F) Oral (!) 58 20 98 % - 01/11/18 1001 120/64 - - 62 - - - 01/11/18 0545 120/64 37.3 ?C (99.2 ?F) Oral (!) 58 16 96 % - 01/10/18 2227 112/64 36.7 ?C (98 ?F) Oral 60 18 97 % - 01/10/18 2042 117/66 - - 64 - - - 01/10/18 1907 - - - - - - 104.8 kg (231 lb 1.6 oz) 01/10/18 1742 113/66 36.6 ?C (97.9 ?F) Oral 64 20 100 % - VS: Patient Vitals for the past 4 hrs: BP Pulse Temp Resp SpO2 01/11/18 1416 113/64 (!) 59 36.9 ?C (98.5 ?F) 20 97 % I/O: Intake/Output Summary (Last 24 hours) at 01/11/18 1719 Last data filed at 01/11/18 1416 Gross per 24 hour Intake 930 ml Output 0 ml Net 930 ml Intake/Output Summary (Last 24 hours) at 01/11/18 0659 Last data filed at 01/11/18 0600 Gross per 24 hour Intake 1695 ml Output 0 ml Net 1695 ml General: NAD Neck: Trachea midline. No mass palpable Lungs: Clear to auscultation, no crackles or wheezing. CV: normal, Regular rate and rhythm, + murmur, no rubs. ACCESS: RIJ temp. No secretions. Abd: + bowel sounds, no distension. Neuro: no asterixis, no focal deficits. Ext: + edema LABS: Recent Labs 01/11/18 0410 01/10/18 0401 01/09/18 0425 CREAT 4.90* 3.49* 4.19* BUN 27* 17 19 NA 132* 134* 134* K 4.7 4.4 4.5 CHLOR 98 100 99 CO2 24 25 26 GLUC 81 71* 80 CA 7.7* 7.9* 7.9* MG 1.9 1.9 1.9 P 2.7 2.2* 2.9 WBC 4.40 3.78 3.68* HB 7.0* 7.5* 7.2* MCV 95.7 97.5 95.2 PLT 90* 92* 86* IMPRESSION: 62 year old male with a PMH including A-fibb, s/p AVR, history of CVA, Fe deficiency anemia and hemolytic anemia presented to [facility] as a transfer from [facility] on 12/24. ?Initial presentation to OSH was due to suspected GI bleed. Patient had low Hg however no diagnostic findings on Colonoscopy, EGD or tagged RBC scan. Patient was transferred to [facility] upon worsening of renal function. ? 1. 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 Mild tubular atrophy and interstitial fibrosis ?-Patient also ANCA +, MPO +, dsDNA + ?-Bartonella henselae IgM positive at 1:64 indicating acute Bartonella henselae infection ?-Bartonella amato IgM is negative, IgG is positive ? 2. Electrolytes ?-Hyponatremia ? 3. Normocytic Anemia ?-Likely multifactorial cause including blood loss, hemolysis as well as acute renal failure ?-No concerning finding on BM bx. Hematology has signed off ? 5. Volume Overload. Edema likely also exacerbated by hypoalbuminemia No need for HOSPICE ART THERAPIST today. Plan for next session tomorrow. Depending on timing of possible OHS will need exchange of cathter to tunneled catheter. Please keep us updated to coordinate with dialysis and exchange of catheter. Thank You for allowing us to participate in his care. Binu Christian MD. [facility] [phone] Staff. Nephrology and Hypertension. January 11, 2018 5:19 PM PLAN OF CARE Observed: 01/11/2018 Status: COMPLETED Source: PLANO 5:15 PM [facility] REPOSITORY O ID: [id number] Author: Junie Grant Service: General Internal Medicine Author Type: Resident Type: Plan of Care Filed: 01/11/2018 5:17 PM Note Text: Adrien Arriaga Plan of Care Patient will be transferred to Clinical Cardiology - TIME CLOCK MECHANIC/PA Service under the care of Dr. Breezy Hernandez. Signed out to CRIS Adair. When patient gets a bed and arrives in , banner will be changed to Dr. Hernandez and TIME CLOCK MECHANIC/PA [facility] Cardiology. Until then, pt will remain under the care of Adrien Arriaga. Please page Pulm [facility] [phone] when pt gets a bed and is transferred, and the [facility] hospitalist will update the banner. Transfer orders already reconciled and signed. Junie Grant DO PGY-2, Internal Medicine [id number] 01/11/18 5:17 PM CASE MANAGEM Observed: 01/11/2018 Status: COMPLETED Source: PLANO 4:24 PM [facility] REPOSITORY HNO ID: [id number] Author: Radha Saunders (Rn) DIEUDONNE Alas Service: Care Management Author Type: Registered Nurse Type: Care Mgt Progress Note Filed: 01/11/2018 4:25 PM Note Text: CARE MANAGEMENT PROGRESS NOTE SERVICE DATE: 01/11/2018 SERVICE TIME: 1623 LOS: 18 days FREEDOM OF CHOICE GIVEN: Yes 01/11/2018 1615 pt Financial Disclosure Provided The patient and/or family has been given the Provider List: No Preference: declined list; see note below Needs Prior to Discharge: Accepting Facility;Facility or Agency Choices;Home Care Order D/C date TBD. Probable move to J-d/cardiothoracic. Attempted to obtain C choices but pt wants to speak with his family tonight because my mom and sister are nurses and I know they'll have opinions. Will provide choice on Thursday. Need f2f. Acute HD. Family will transport at d/c. Please notify Case Management for any changes in skilled needs. Thank you. SIGNATURE: Radha Alas RN PATIENT NAME: Frank Rivera DATE: January 11, 2018 TIME: 4:24 PM PAGER/CONTACT #: [phone] CONSULT PROG Observed: 01/11/2018 Status: COMPLETED Source: PLANO 3:30 PM [facility] REPOSITORY HNO ID: [id number] Author: Rohit Olivas Service: Infectious Disease Author Type: Physician Type: Consult Progress Note Filed: 01/11/2018 3:36 PM Note Text: INFECTIOUS DISEASE CONSULT SERVICE PROGRESS NOTE Patient Name: Frank Rivera Interval Events: Course reviewed Feels reasonably well No fevers or chills Tolerating antibiotics In addition to those reviewed and documented in the HPI all other systems reviewed and were negative. MEDICATIONS Medications reviewed. Current hospital medications: doxycycline 100 mg in D5W 250 mL Vial-Mate (VIBRAMYCIN) 100 mg INTRAVENOUS q 12 H cefTRIAXone 2 g in D5W 100 mL MB+ (ROCEPHIN) 2 g INTRAVENOUS q 24 H docusate sodium 100 mg cap(s) (COLACE) 100 mg ORAL BID PRN polyethylene glycol 3350 17 g packet (MIRALAX, GLYCOLAX) 17 g ORAL DAILY PRN senna-docusate 8.6-50 mg 1 tablet (SENNA-S) 1 tablet ORAL/FEEDING TUBE BID PRN calcium carbonate 1,000 mg chewable tab(s) (TUMS) 1,000 mg ORAL/FEEDING TUBE BID PRN acetaminophen 650 mg tab(s) (TYLENOL) 650 mg ORAL q 4 H PRN sodium chloride 0.65 % 2 [place] (AYR, OCEAN) 2 [place] EACH NOSTRIL TID PRN yohkomug-orkr-xaviq acid chewable tablet (CENTRUM) 1 tablet ORAL DAILY cholecalciferol 3,000 Units tab(s) (VITAMIN D3) 3,000 Units ORAL DAILY cyanocobalamin 500 mcg tab(s) (VITAMIN B-12) 500 mcg ORAL DAILY thiamine 100 mg tab(s) (VITAMIN B1) 100 mg ORAL DAILY diphenhydrAMINE 25 mg (BENADRYL) 25 mg ORAL q 6 H PRN aspirin, enteric coated 81 mg tab(s) 81 mg ORAL DAILY metoprolol tartrate (short acting) 12.5 mg tab(s) (LOPRESSOR) 12.5 mg ORAL BID tamsulosin ER 0.4 mg cap(s) (FLOMAX) 0.4 mg ORAL DAILY pantoprazole DR 40 mg tab(s) (PROTONIX) 40 mg ORAL BID levothyroxine 200 mcg tab(s) (SYNTHROID) 200 mcg ORAL BEFORE BREAKFAST DAILY atorvastatin 80 mg tab(s) (LIPITOR) 80 mg ORAL AT BEDTIME Examination: BP 113/64 Pulse (!) 59 Temp 36.9 ?C (98.5 ?F) (Oral) Resp 20 Ht 193 cm (6' 4) Wt 104.8 kg (231 lb 1.6 oz) SpO2 97% BMI 28.13 kg/m? Temp (24hrs), Av.8 ?C (98.3 ?F), Min:36.6 ?C (97.9 ?F), Max:37.3 ?C (99.2 ?F) General appearance: Up and about in his room, no distress Skin: no rash Head: neg Eyes: anicteric Oropharynx: neg Neck: right ij hd catheter and CBC Back: not examined Lungs: bilateral breath sounds anteriorly Heart: rrnl Abdomen: soft Extremities: Bilateral lower extremity edema - improved Musculoskeletal: Negative Peripheral pulses: radial pulses palpable Exam unchanged as compared with 01/08 other than as edited above. Lab, Microbiology and Imaging Data: Personally reviewed imaging studies, laboratory results, and microbiology results. ASSESSMENT: 62-year-old with multiple medical problems including but not limited to atrial fibrillation, hypertension, and aortic stenosis status post aortic valve replacement in April 2017 with a permanent pacemaker placed shortly thereafter was transferred to our hospital on 12/24 for further evaluation of an acute kidney injury. He initially presented to an outside hospital on 12/19 for further evaluation of a new anemia and renal failure after presenting to his primary care physician with fatigue and shortness of breath. He was treated empirically with prednisone for a glomerular nephritis and transferred. 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 Positive serologies for antineutrophil cytoplasmic antibodies and myeloperoxidase. He is requiring renal replacement therapy. Notable aspects of his workup thus far from infectious disease perspective has included: 2 blood cultures 12/25-no growth to date Bartonella serologies-IgG for Bartonella henselae greater than 1:1024, IgG for Bartonella amato 1:1024 Transesophageal echocardiogram 01/01-2-3+ TR, 3+ AI, thickening of the aorto-mitral curtain and posterior LA wall suggestive of either hematoma or active infection, small mobile echodensity within the RA-vegetation versus thrombus CT chest cardiac 01/07-moderate diffuse leaflet calcification CT brain 01/07-no acute findings CT abdomen and pelvis 01/06-evolving large rectus sheath hematoma 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 Interestingly, despite his titers he has no obvious epidemiological link to this genus. In speaking with him and in reviewing his records there was no suspicion for endocarditis of the time of his operation in April. He continues to require renal replacement therapy. He is being considered for open heart surgery. RECOMMENDATIONS: Continue doxycycline-change to 100 mg IV every 12 hours Continue ceftriaxone 2 g IV every 24 hours No infectious disease contraindication open heart surgery Assessment and plan unchanged as compared with 01/08 except as edited above. Monitoring for ongoing therapeutic and potential untoward effect of antibiotic therapy. Following Signature: Rohit Olivas MD Pager: [phone] CONSULT PROG Observed: 01/11/2018 Status: COMPLETED Source: PLANO 3:08 PM [facility] REPOSITORY HNO ID: [id number] Author: Joey Moreira (Pa) Service: Cardiovascular Medicine Author Type: Physician Installation Engineer Type: Consult Progress Note Filed: 01/11/2018 3:22 PM Note Text: CARDIOLOGY CONSULT PROGRESS NOTE CARDIOLOGY ATTENDING: Jt Hernandez M.D. Date and Reason for initial consult: INTERVAL HISTORY / PERTINENT ROS: Cardiothoracic surgery workup continues CHANDRAKANT images reviewed from [facility]?slight increase in thickening of aortic root, paravalvular leakage is new Patient is tolerating doxycycline and ceftriaxone for Bartonella?unclear portal MEDICATIONS: Current hospital medications: doxycycline 100 mg in D5W 250 mL Vial-Mate (VIBRAMYCIN) 100 mg INTRAVENOUS q 12 H cefTRIAXone 2 g in D5W 100 mL MB+ (ROCEPHIN) 2 g INTRAVENOUS q 24 H docusate sodium 100 mg cap(s) (COLACE) 100 mg ORAL BID PRN polyethylene glycol 3350 17 g packet (MIRALAX, GLYCOLAX) 17 g ORAL DAILY PRN senna-docusate 8.6-50 mg 1 tablet (SENNA-S) 1 tablet ORAL/FEEDING TUBE BID PRN calcium carbonate 1,000 mg chewable tab(s) (TUMS) 1,000 mg ORAL/FEEDING TUBE BID PRN acetaminophen 650 mg tab(s) (TYLENOL) 650 mg ORAL q 4 H PRN sodium chloride 0.65 % 2 [place] (AYR, OCEAN) 2 [place] EACH NOSTRIL TID PRN ztibbolo-hwom-sekdm acid chewable tablet (CENTRUM) 1 tablet ORAL DAILY cholecalciferol 3,000 Units tab(s) (VITAMIN D3) 3,000 Units ORAL DAILY cyanocobalamin 500 mcg tab(s) (VITAMIN B-12) 500 mcg ORAL DAILY thiamine 100 mg tab(s) (VITAMIN B1) 100 mg ORAL DAILY diphenhydrAMINE 25 mg (BENADRYL) 25 mg ORAL q 6 H PRN aspirin, enteric coated 81 mg tab(s) 81 mg ORAL DAILY metoprolol tartrate (short acting) 12.5 mg tab(s) (LOPRESSOR) 12.5 mg ORAL BID tamsulosin ER 0.4 mg cap(s) (FLOMAX) 0.4 mg ORAL DAILY pantoprazole DR 40 mg tab(s) (PROTONIX) 40 mg ORAL BID levothyroxine 200 mcg tab(s) (SYNTHROID) 200 mcg ORAL BEFORE BREAKFAST DAILY atorvastatin 80 mg tab(s) (LIPITOR) 80 mg ORAL AT BEDTIME PHYSICAL EXAM: Vital Signs 01/11/18 0545 01/11/18 1001 01/11/18 1052 01/11/18 1416 BP: 120/64 120/64 121/67 113/64 Pulse: (!) 58 62 (!) 58 (!) 59 Resp: Temp: 37.3 ?C (99.2 ?F) 36.6 ?C (97.9 ?F) 36.9 ?C (98.5 ?F) TempSrc: Oral Oral Oral SpO2: 96% 98% 97% Weight: Height: Intake/Output Summary (Last 24 hours) at 01/11/18 1508 Last data filed at 01/11/18 1416 Gross per 24 hour Intake 930 ml Output 0 ml Net 930 ml Temp (24hrs), Av.8 ?C (98.3 ?F), Min:36.6 ?C (97.9 ?F), Max:37.3 ?C (99.2 ?F) Oxygen therapy: RA Admit Weight: 115.7 kg 01/11/2018 Wt 104.8 kg (231 lb 1.6 oz) BMI 28.13 kg/m2 Gen: AANDO Neck: no jugular venous distention Cardiac: RRR without murmur, gallop, or rubs. No ectopy. Resp: clear to auscultation bilaterally Abd: Soft, non-tender. Bowel sounds normal. No masses, organomegaly, hernias. Ext: + edema, moves all extremities with no apparent weakness Tele: paced Labs: CK 125 12/26/2017 MB 2.3 12/26/2017 CK MB % 1.8 12/26/2017 Recent Labs 01/11/18 0410 01/10/18 0401 01/09/18 0425 WBC 4.40 3.78 3.68* HB 7.0* 7.5* 7.2* HCT 22.2* 23.7* 21.8* PLT 90* 92* 86* Recent Labs 01/11/18 0410 01/10/18 0401 01/09/18 0425 NA 132* 134* 134* K 4.7 4.4 4.5 CHLOR 98 100 99 CO2 24 25 26 BUN 27* 17 19 CREAT 4.90* 3.49* 4.19* GLUC 81 71* 80 No results found for this basename: chol,hdl,ldl DATA: EKG - paced rhythm CHANDRAKANT 01/01/2018 - The left ventricle is normal in size. Left ventricular systolic function is normal. EF = 60 ? 5% (visual est.) - The right ventricle is dilated. Right ventricular systolic function is mildly decreased. - The left atrial cavity is dilated. - Previous RUDY ligation. Small residual RUDY. - The right atrial cavity is dilated. - There is moderate (2+ - 3+) tricuspid valve regurgitation. 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 There is moderately severe (3+) aortic valve regurgitation due to paravalvular endocarditis. - There is no patent foramen ovale as detected by Doppler and saline contrast. - The Aortic valve prosthesis appears to be well seated with evidence of mild degeneration and without any obvious mobile echodensity on its leaflets. There is thickening of the Aorto-Mitral curtain and posterior LA wall which is suggestive of either hematoma or active infection. - There does not appear to be any transvalvular AI however there is a diastolic flow arising from the subvalvular region which may (Clip #47, #42) or may represent 3+ paravalvular regurgitation with a very eccentric jet. Consider Cardiac CT for better characterization and to r/o the presence of a fistula or abscess. - There is a a small mobile echodensity within the RA which may be attached either ?to the Venous catheter or the atrial portion of one of the pacemaker leads (1.2cm ?x 0.55 cm, Clip #28). This may represent vegetation or thrombus. - Exam was compared with the prior echocardiographic exam performed on 12/25/2017. Thrombus/Vegetation on pacemaker lead/venous catheter and possible paralvalvular leak. ASSESSMENT AND PLAN: Mr. Frank Rivera is a 62 year old male with past medical history significant for atrial fibrillation (on apixaban at home and rate control with metoprolol), hypertension, hypothyroidism, aortic stenosis status post bioprosthetic aortic valve replacement with a [address] Richi trifecta pericardial valve with left atrial ligation in April 2017, sick sinus syndrome status post pacemaker placement 05-13-17 who presented to this hospital feeling fatigued and more short of breath and he was found to be anemic with a hemoglobin of 7.5 and had guaiac positive stool Workup for GI bleed via EGD and colonoscopy was unremarkable. Tagged RBC scan was also negative Worsening creatinine was felt to be related to C3 nephropathy Cardiology was consulted for concern that aortic valve regurgitation was related to endocarditis and over the past week or so, cardiothoracic surgery (Dr. Cuauhtemoc Parker ) has also been consulted to prepare for redo open heart surgery The patient has been consulted by infectious disease for appropriate antibiotics Fortunately, the patient has a paced rhythm (concern for aortic valve paravalvular abscess ) At this point in time, the patient will be transferred from medicine service to primary cardiology service for continuation of care discussed with Dr José Miguel Hernandez, CRIS Adair and Dr Vasyl Huertas SIGNATURE: CORIN Lamar [id number] 01/11/2018 3:08 PM THERAPY NT Observed: 01/11/2018 Status: COMPLETED Source: PLAN[place] 10:09 AM [facility] REPOSITORY [facility] ID: [id number] Author: Ahmet Armando [facility] Service: Physical Therapy Author Type: Decaler Type: Therapy (PT/OT/Speech/Resp) Filed: 01/11/2018 10:10 AM Note Text: Attestation signed by Loki Lei at 01/11/2018 1:34 PM I reviewed and agree with the documentation corresponding to this therapy visit. SIGNATURE: Loki Lei PT DATE: January 11, 2018 TIME: 1:34 PM PHYSICAL THERAPY MISSED VISIT SERVICE DATE: 01/11/2018 SERVICE TIME: 1000 to 1000 ROOM: [place] [address] Attempted Treatment. Patient not seen due to Test/Procedure. SIGNATURE: Ahmet Marie PTA PATIENT NAME: Frank Rivera DATE: January 11, 2018 TIME: 10:09 AM PROGRESS Observed: 01/11/2018 Status: COMPLETED Source: [place]AN[place] 8:10 AM [facility] REPOSITORY [facility] ID: [id number] Author: Vasyl Huertas Service: Hospital Medicine Author Type: Physician Type: Progress Notes Filed: 01/11/2018 3:51 PM Note Text: INPATIENT PROGRESS NOTE For questions regarding this patient, please page [phone] during 7 a.m. - 5 p.m. After 5 p.m., please page on-call [employer] pager [phone] for concerns. Brief Plan - Bartonella positive, on IV doxycycline and ceftriaxone - still not producing urine, on HD -- for IRINA (no hx of CKD) - watching Hg 7, 1 RBC on 01/11 with HD - CTS consulted: Dr. Cuauhtemoc Parker, [employer] following - PFTs on , CT surgery to review [facility] 03/2017 films - Monitor H/H and transfuse Hg < 7 mg/dL or platelets < 50 Interval History No acute events overnight. Doing well this morning. Denies any symptoms, no fever, chills, no shortness of breath. Physical Exam BP 120/64 Pulse (!) 58 Temp 37.3 ?C (99.2 ?F) (Oral) Resp 16 Ht 193 cm (6' 4) Wt 104.8 kg (231 lb 1.6 oz) SpO2 96% BMI 28.13 kg/m? -I/O: Intake/Output Summary (Last 24 hours) at 01/11/18 0810 Last data filed at 01/11/18 0600 Gross per 24 hour Intake 1695 ml Output 0 ml Net 1695 ml GENERAL: Alert, no distress, cooperative Full dentures SKIN: Skin color, texture, turgor normal. No rashes or lesions. LUNGS: CTAB CARDIAC: Murmur 2/6, systolic, right upper sternal border ABDOMEN: Soft, non-distended, LLQ tenderness, +BS EXTREMETIES: No ulcers, 1+ pitting edema to knees, (seems less per my exam, only to lower tibial area L > R) NEURO: Alert, oriented X 3.?motor exam grossly normal. Sensation grossly intact., Cranial nerves II-XII intact PULSES: 2+ radial Medications Current hospital medications: doxycycline 100 mg in D5W 250 mL Vial-Mate (VIBRAMYCIN) 100 mg INTRAVENOUS q 12 H cefTRIAXone 2 g in D5W 100 mL MB+ (ROCEPHIN) 2 g INTRAVENOUS q 24 H docusate sodium 100 mg cap(s) (COLACE) 100 mg ORAL BID PRN polyethylene glycol 3350 17 g packet (MIRALAX, GLYCOLAX) 17 g ORAL DAILY PRN senna-docusate 8.6-50 mg 1 tablet (SENNA-S) 1 tablet ORAL/FEEDING TUBE BID PRN calcium carbonate 1,000 mg chewable tab(s) (TUMS) 1,000 mg ORAL/FEEDING TUBE BID PRN acetaminophen 650 mg tab(s) (TYLENOL) 650 mg ORAL q 4 H PRN sodium chloride 0.65 % 2 [place] (AYR, OCEAN) 2 [place] EACH NOSTRIL TID PRN eiolkiqa-zanf-cobzc acid chewable tablet (CENTRUM) 1 tablet ORAL DAILY cholecalciferol 3,000 Units tab(s) (VITAMIN D3) 3,000 Units ORAL DAILY cyanocobalamin 500 mcg tab(s) (VITAMIN B-12) 500 mcg ORAL DAILY thiamine 100 mg tab(s) (VITAMIN B1) 100 mg ORAL DAILY diphenhydrAMINE 25 mg (BENADRYL) 25 mg ORAL q 6 H PRN aspirin, enteric coated 81 mg tab(s) 81 mg ORAL DAILY metoprolol tartrate (short acting) 12.5 mg tab(s) (LOPRESSOR) 12.5 mg ORAL BID tamsulosin ER 0.4 mg cap(s) (FLOMAX) 0.4 mg ORAL DAILY pantoprazole DR 40 mg tab(s) (PROTONIX) 40 mg ORAL BID levothyroxine 200 mcg tab(s) (SYNTHROID) 200 mcg ORAL BEFORE BREAKFAST DAILY atorvastatin 80 mg tab(s) (LIPITOR) 80 mg ORAL AT BEDTIME Labs CBC: Recent Labs 01/11/18 0410 01/10/18 04001/09/18 0425 01/08/18 0513 01/07/18 0424 01/06/18 0407 01/05/18 0500 WBC 4.40 3.78 3.68* 3.83 3.80 4.48 4.28 HB 7.0* 7.5* 7.2* 6.9* 7.2* 7.3* 7.8* HCT 22.2* 23.7* 21.8* 21.4* 22.4* 23.1* 24.3* PLT 90* 92* 86* 89* 95* 91* 79* MCV 95.7 97.5 95.2 95.1 95.3 94.7 96.0 RDWCV 17.9* 17.8* 17.5* 17.3* 17.6* 17.1* 17.2* NEUTP 65.0 56.3 74.0 59.0 56.9 62.0 61.0 ABSNEUT 2.84 2.12 2.72 2.24 2.14 2.78 2.60 LYMPHP 26.1 31.5 17.4 31.6 32.6 27.2 29.2 MONOP 7.7 10.6 5.2 8.4 9.2 9.2 8.4 EODINP 0.7 0.8 1.7 0.5 0.8 0.9 0.7 BMP: Recent Labs 01/11/18 0410 01/10/18 0401 01/09/18 0425 01/08/18 0513 01/07/18 0424 01/06/18 0407 01/05/18 0500 GLUC 81 71* 80 77 80 82 85 NA 132* 134* 134* 132* 132* 133* 134* K 4.7 4.4 4.5 4.4 4.4 4.6 4.4 CHLOR 98 100 99 97 98 96* 98 CO2 24 25 26 26 25 24 27 ANION 10 9 9 9 9 13 9 BUN 27* 17 19 28* 18 30* 22 CREAT 4.90* 3.49* 4.19* 5.47* 4.43* 6.01* 4.81* CHEM: Recent Labs 01/11/18 0410 01/10/18 0401 01/09/18 0425 01/08/18 0513 01/07/18 0424 01/06/18 0407 01/05/18 0500 ALB -- -- -- 2.1* -- -- -- TPROT -- -- -- 6.1* -- -- -- CA 7.7* 7.9* 7.9* 7.8* 7.7* 7.8* 7.7* MG 1.9 1.9 1.9 1.9 1.7 1.9 1.8 HEPATIC: Recent Labs 01/08/18512 ALKPHOS 139* ALT 30 AST 49* TBILI 0.6 COAG: Recent Labs 01/08/18512 APTT 33.5* INR 1.3 URINALYSIS:No results for input(s): PH, SPGR, UGLUC, UBILI, UKET, UHB, UPROT, UROBIL, UWBC, SSA in the last 168 hours. Invalid input(s): NITR CARDIAC: No results for input(s): CKTEST, CKMB, CKMBP, TROPT, PBNP in the last 168 hours. Imaging ECHO TRANSESOPHAGEAL 01/01/2018 - Exam indication: ?Endocarditis - The left ventricle is normal in size. Left ventricular systolic function is normal. EF = 60 ? 5% (visual est.) - The right ventricle is dilated. Right ventricular systolic function is mildly decreased. - The left atrial cavity is dilated. - Previous RUDY ligation. Small residual RUDY. - The right atrial cavity is dilated. - There is moderate (2+ - 3+) tricuspid valve regurgitation. 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 There is moderately severe (3+) aortic valve regurgitation due to paravalvular endocarditis. - There is no patent foramen ovale as detected by Doppler and saline contrast. - The Aortic valve prosthesis appears to be well seated with evidence of mild degeneration and without any obvious mobile echodensity on its leaflets. There is thickening of the Aorto-Mitral curtain and posterior LA wall which is suggestive of either hematoma or active infection. - There does not appear to be any transvalvular AI however there is a diastolic flow arising from the subvalvular region which may (Clip #47, #42) or may represent 3+ paravalvular regurgitation with a very eccentric jet. Consider Cardiac CT for better characterization and to r/o the presence of a fistula or abscess. - There is a a small mobile echodensity within the RA which may be attached either ?to the Venous catheter or the atrial portion of one of the pacemaker leads (1.2cm ?x 0.55 cm, Clip #28). This may represent vegetation or thrombus. - Exam was compared with the prior CC echocardiographic exam performed on 12/25/2017. Thrombus/Vegetation on pacemaker lead/venous catheter and possible paralvalvular leak. XR CHEST 1V FRONTAL 12/27/2017 Lines, Tubes, and Devices: ?Right IJ line mid SVC. Stable pacemaker. Lungs and Pleura: ?Bilateral effusions and overlying opacity similar to prior. No pneumothorax. Cardiomediastinal silhouette: ?Stable cardiac silhouette. ? CT ABD/PEL WO IVCON 12/27/2017 LARGE LEFT RECTUS SHEATH HEMATOMA, STABLE OR SLIGHTLY INCREASED IN SIZE SINCE 12/25/2017. 3.3 CM ROUND LOW-ATTENUATION LESION ADJACENT TO THE CELIAC AXIS WHICH MAY BE AN ENLARGED LYMPH NODE. CHOLELITHIASIS WITHOUT EVIDENCE CHOLECYSTITIS. HEPATIC STEATOSIS. ? US ABD RT UPPER QUADRANT AND SPLEEN 12/26/2017 CHOLELITHIASIS IN A DISTENDED GALLBLADDER WITHOUT OTHER EVIDENCE OF ACUTE CHOLECYSTITIS. DIFFUSE HEPATIC STEATOSIS. The craniocaudal length of the spleen is 10.1 cm, normal. There are no splenic lesions. ? CT ABD/PEL WO IVCON 12/25/2017 Moderate LEFT rectus sheath hematoma Diffuse hepatic steatosis. 2.6 cm low-attenuation structure abutting the celiac, possibly an enlarged lymph node. ?Further evaluation with contrast-enhanced study should be considered. Cholelithiasis without evidence of acute cholecystitis. ? LEG DVT JORGE LUIS BOBBY 12/25/2017 RIGHT SIDE - DEEP VEINS Negative for acute deep vein thrombosis. Thickened redmond, patent distal external iliac vein and common femoral vein. Only segments visualized of the posterior tibial veins and peroneal veins. Multiple enlarged lymph nodes noted in the right groin with the largest measuring aproximately: 1.4 x 1.5 x 0.9 cm. RIGHT SIDE - SUPERFICIAL VEINS Thickened redmond, patent great saphenous?vein. LEFT SIDE - DEEP VEINS Only segments visualized of the posterior tibial veins and peroneal veins. Multiple enlarged lymph nodes noted in the right groin with the largest measuring aproximately: 2.3 x 1.8 x 0.7 cm. 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 ? XR CHEST 1V FRONTAL Lines, tubes, and devices: ?The patient is status post median sternotomy and left 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 clip placement. ?Left pacemaker device is in place with leads in the right atrium and the right ventricle. ?Surgical clips overlie the upper abdomen. Lungs and pleura: ?Patchy reticular opacities are noted, likely related to pulmonary edema. Hazy opacity overlying the right lung base is likely related to small right pleural effusion and adjacent atelectasis/consolidation. ?Also noted is trace left pleural effusion. ?A vertically oriented lucency overlying the right lower chest is favored to be a skinfold. Cardiomediastinal silhouette: ?Cardiac silhouette is enlarged with pulmonary venous congestion. ? ECHO 12/25/2017 - Technically difficult exam due to suboptimal positioning. - Exam indication: Initial evaluation of Heart Failure - The left ventricle is moderately dilated. There is moderate concentric left ventricular hypertrophy. Left ventricular systolic function is normal. EF = 66 ? 5% (2D biplane) - The right ventricle is normal in size. Right ventricular systolic function is normal. - The left atrial cavity is severely dilated. - The right atrial cavity is dilated. - There is moderate (2+) mitral valve regurgitation. Thickened mitral valve leaflets. - There is moderate (2+ - 3+) tricuspid valve regurgitation. 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 There is moderately severe (3+) aortic valve regurgitation. The peak gradient is 39 mmHg, the mean gradient is 17 mmHg and the dimensionless valve index is 0.53. There is both valvular and paravalvular AI. There is flow reversal in the descending aorta. - Estimated right ventricular systolic pressure is?likely underestimated due to a weak or incomplete tricuspid regurgitation signal and is, at least, 70 mmHg consistent with moderately severe pulmonary hypertension. Estimated right atrial pressure is 15 mmHg. - The patient has not had a prior CC echocardiographic exam for comparison. Assessment and Plan Mr. 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 MICU transfer to initiate dialysis secondary to volume overload. Patient is now anuric IRINA-D. Bartonella prosthetic AV IE. ? 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 Cuauhtemoc Parker assigned, PFT/DLCO to complete CTS pre-op evaluation, ?Neurology evaluation given recent stroke, ?repeat cath #Pancytopenia #Hemolytic anemia Presented with fatigue, shortness of breath History of UGIB secondary to Min-en-Y (most recently 2015), OSH EGD/C-scope/tagged RBC scan showed no evidence of bleed Requiring pRBC transfusion x 3 during this hospitalization Concerns for hemolytic process, not Petar driven--peripheral smear showed evidence of scant schistocytes, yojana cells, rare spherocytes, thrombocytopenia. ?Elevated Igs, will try to continue to workup lymphoproliferative process as potential etiology Plan: - Transfuse Hgb < 7, Plts < 50 ?#Atrial fibrillation S/p PPM for sick sinus syndrome Metoprolol 12.5mg BID home dose held for acute anemia, which has now stabilized HR in 80s-low 100s, HDS Plan: currently off AC due to rectus sheath hematoma -Continue metoprolol 12.5mg BID -Tele ? 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 - continue IHD - continue sodium bicarbonate 650mg TID - daily BMP - f/u Nephrology recs ? #CAD - continue atorvastatin 80mg qHS ? #Mild protein-calorie malnutrition - nutritional support ? #Hypothyroidism -Continue levothyroxine 200mcg qAM ? 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 Diet: Renal DVT PPx: IPCs GI PPx: Pantoprazole 40mg qDay Fran Garner MD, MBA MS Internal Medicine [place] [phone] [email or web address] Pager #: [phone] ADRIEN Arriaga ATTENDING NOTE: Chart reviewed, patient seen and examined on 01/11 at 11am and hernandez elements of the history and physical were discussed in detail and confirmed with the resident team. I have reviewed the above note, examined the patient and agree with the documented findings and plan of care as listed in Dr Garner's note. Any addendums above are in bold text. Assessment: On Rocephin, (since 01/07) + Doxycycline, (since 12/30) for Rx of Bartonella [place] prosthetic AV BE, cardiac status is tenuous but stable, (per ECHO + AV vegetation +3 AVR and +3 TVR) IRINA, no evidence of renal recovery, on IHD MWF, (C3 + and focal sclerosis felt to be due to infection) s/p AVR, (+ RUDY ligation) 04/2017 Hx of A fib + SSS + has PPM in place, (placed shortly after above cardiac surgery) + has severe pulm HTN ? 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 + ADRIANNE s/p distant RNYGB, w/ ADRIANNE + B12 def distant CVA w/ full recovery Plan: Needs AVR + TV-r in the near future Cont the same Antibx RBC X 1 w/ IHD IHD MWF pre surgical w/u in progress, PFTs in AM Same oral meds for now + Plans per CARDS team Vasyl Huertas MD FACP Attending, pager [phone] Addendum 2:30PM per CARDS team, will transfer to CARDS service later today Vasyl Huertas MD BASIC METABOLIC PANL Collected: 01/11/2018 Status: F Source: PLANO 4:10 AM [facility] REPOSITORY TYPE CODE TESTS RESULT OUT OF REFERENCE UNITS RANGE LAB GLU 74-99 mg/dL Glucose 81 Result Comment: The [place] Diabetes Association (ADA) provides guidance for cutoff values for fasting glucose and random glucose. The ADA defines fasting as no caloric intake for at least 8 hours. Fas ting plasma glucose results between 100 to 125 mg/dL indicate increased risk for diabetes (prediabetes). Fasting plasma glucose results greater than or equal to 126 mg/dL meet the criteria for diagnosis of diabetes. In the absence of unequivocal hyperglycemia, results should be confirmed by repeat testing. In a patient with classic symptoms of hyperglycemia or hyperglycemic crisis, random plasma glucose results greater than or equal to 200 mg/dL meet the criteria for diagnosis of diabetes. Reference: Standards of Medical Care in Diabetes 2016, [place] Diabetes Association. Diabetes Care. 2016.39(Suppl 1). LAB BUN 9-24 mg/dL BUN High 27 LAB CRET 0.73-1.22 mg/dL Creatinine High 4.90 LAB NA 136-144 mmol/L Low Sodium 132 LAB K 3.7-5.1 mmol/L Potassium 4.7 LAB CL 97-105 mmol/L Chloride 98 LAB CO2 22-30 mmol/L CO2 24 LAB AGAP 9-18 mmol/L Anion Gap 10 LAB CA 8.5-10.2 mg/dL Low Calcium, Total 7.7 LAB GFRAA eGFR- Amer. 15 LAB GFRNAA . eGFR-All Other Races 12 Result Comment: eGFR (Estimated GFR) Units of measure: mL/min/1.73 meters squared eGFR is derived from the reexpressed MDRD Study equation using the following parameters: serum creatinine, age, gender and race. The creatinine assay has been calibrated to be traceable to IDMS. An eGFR <60 mL/min/1.73m2 for >3 months is consistent with chronic kidney disease. Refer to KDOQI guidelines for clinical interpretation. In patients with unstable renal function, e.g. those with acute kidney injury, the eGFR may not accurately reflect actual GFR. Performed By: #### BMP, MG1, PHOS, CBCDIF #### [facility] [employer] [address] [place] [address] MAGNESIUM Collected: 01/11/2018 Status: F Source: PLANO 4:10 AM [facility] REPOSITORY TYPE CODE TESTS RESULT OUT OF REFERENCE UNITS RANGE LAB MG 1.7-2.3 mg/dL Magnesium 1.9 Performed By: #### BMP, MG1, PHOS, CBCDIF #### [facility] [employer] [address] [place] [address] PHOSPHORUS Collected: 01/11/2018 Status: F Source: PLANO 4:10 AM [facility] REPOSITORY TYPE CODE TESTS RESULT OUT OF REFERENCE UNITS RANGE LAB PHOS 2.7-4.8 mg/dL Phosphorus 2.7 Performed By: #### BMP, MG1, PHOS, CBCDIF #### [place] [address] CBC AND DIFFERENTIAL Collected: 01/11/2018 Status: F Source: PLANO 4:10 AM [facility] REPOSITORY TYPE CODE TESTS RESULT OUT OF REFERENCE UNITS RANGE LAB WBC 3.70-11.00 k/uL WBC 4.40 LAB RBC 4.20-6.00 m/uL Low RBC 2.32 LAB HGB 13.0-17.0 g/dL Low Hemoglobin 7.0 LAB HCT 39.0-51.0 % Low Hematocrit 22.2 LAB MCV 80.0-100.0 fL MCV 95.7 LAB MCH 26.0-34.0 pG MCH 30.2 LAB MCHC 30.5-36.0 g/dL MCHC 31.5 LAB RDWCV 11.5-15.0 % RDW-CV High 17.9 LAB PLTCT 150-400 k/uL Low Platelet Count 90 Result Comment: No clot detected. LAB MPV 9.0-12.7 fL MPV 10.1 LAB ANEUT % Neut% 65.0 LAB AANEUT 1.45-7.50 k/uL Abs Neut 2.84 LAB ALYMP % Lymph% 26.1 LAB AALYMP 1.00-4.00 k/uL Abs Lymph 1.15 LAB AMONO % Pope% 7.7 LAB AAMONO <0.87 k/uL Abs Pope 0.34 LAB AEOS % Eosin% 0.7 LAB AAEOS <0.46 k/uL Abs Eosin 0.03 LAB ABASO % Baso% 0.5 LAB AABASO <0.11 k/uL Abs Baso <0.03 LAB AUNRBC 0 /100 WBC NRBCs 0.0 LAB ABNRBC <0.01 k/uL Absolute nRBC <0.01 LAB DTYP DTYPE Auto Diff Performed By: #### BMP, MG1, PHOS, CBCDIF #### [facility] [address] [address] NURSING PROG Observed: 01/10/2018 Status: COMPLETED Source: [place]AN[place] 5:55 PM [facility] REPOSITORY HNO ID: [id number] Author: Harika (Rn) DIEUDONNE Razo Service: (none) Author Type: Registered Nurse Type: Nursing Progress Note Filed: 01/10/2018 6:08 PM Note Text: Nursing Progress Note Patient Name: Frank Rivera Patient Location: H081 [id number]/[id number] Pt. RIJ trialysis catheter dressing changed today due to blood. Pt. site now bleeding more[place] [phone] to assess at 17:55. Dr. Rachid Mcelroy called back, coming to bedside to assess. Dr. Mcelroy saw pt. Oncoming RN to change dressing tonight at 21:00. Will continue to monitor and assess. This note was completed by: Harika Razo RN NURSING PROG Observed: 01/10/2018 Status: COMPLETED Source: [place]AN[place] 4:48 PM [facility] REPOSITORY HNO ID: [id number] Author: Harika MarieRn) DIEUDONNE Razo Service: (none) Author Type: Registered Nurse Type: Nursing Progress Note Filed: 01/10/2018 4:51 PM Note Text: Nursing Progress Note Patient Name: Frank Rivera Patient Location: [place] [address] Pt. AM labs phosphorus of 2.2, pt. also refusing IPCs. Pt. educated on use of IPCs. paged Dr. Garner and made aware. No new orders at this time. Will continue to monitor pt. This note was completed by: Harika Razo RN PROGRESS Observed: 01/10/2018 Status: COMPLETED Source: [place]AN[place] 12:40 PM [facility] REPOSITORY HNO ID: [id number] Author: Adi Diaz Service: Hospital Medicine Author Type: Physician Type: Progress Notes Filed: 01/10/2018 12:49 PM Note Text: [facility] STAFF PHYSICIAN NOTE OF PERSONAL INVOLVEMENT IN CARE Weekend Coverage for GUI Arriaga For full details please refer to IM progress not from today by ? 62y/o gentleman with atrial fibrillation and SSS s/p PPM, HTN, hypothyroidism, aortic stenosis s/p AVR and RUDY, history of Min-en-Y bypass c/b recurrent GIB, ADRIANNE, B12 deficiency. As per HANDP on 12/24/17 Pt states that he was feeling lousy, fatigued, more short of breath thus he contacted his PCP who ordered lab work to be completed. He presented to OSH on 12/14 after being found to have hgb 7.5, BUN 70 and Cr 4.12, stool guiac +. Pt underwent work up for GI bleed via EGD on 12/18/17 and Colonoscopy 12/21/17 which was unremarkable. Tagged RBC scan also negative. Pt subsequently underwent right renal biopsy on 12/18 due to unexplained rise in Cr. Initial biopsy results concerning for C3 nephropathy, and thus pt was transferred to [facility] for further work up. Renal biopsy results pending at time of admission. Pt seen and examined Denied any complaints Blood cx Neg so far Bartonella serologies-IgG for Bartonella henselae greater than 1:1024, IgG for Bartonella amato 1:1024 On Abx as per ID recs ( DOXy BID and Ceftriaxone) CHANDRAAKNT noted Appreciate ID and Cardiac Sx recs , Card Sx - reviewing OSH records ? Not on Ac for A fib - 2/2 recent Rectus sheath hematoma ? Anemia- underwent BM biopsy - hematology has signed off, no clear pathology for anemia found ? Hemolysis ? Receiving 1 unit PRBC on 01/09 ? Thrombocytopenia - stable ? Aneuric IRINA - 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 Continue IHD Adi Diaz MD, FACP Associate Staff, Dept. Of Hospital Medicine PAGER - [phone] ? ? PROGRESS Observed: 01/10/2018 Status: COMPLETED Source: [place]ANO 11:44 AM [facility] REPOSITORY [facility] ID: [id number] Author: Vasyl Truong Service: Nephrology Author Type: Physician Type: Progress Notes Filed: 01/10/2018 11:46 AM Note Text: CONSULT PROGRESS NOTE NEPHROLOGY SERVICE SERVICE DATE: 01/10/2018 SERVICE TIME: 11:44 AM Subjective INTERVAL HISTORY:no problems overnight MEDICATIONS: Current hospital medications: doxycycline 100 mg in D5W 250 mL Vial-Mate (VIBRAMYCIN) 100 mg INTRAVENOUS q 12 H cefTRIAXone 2 g in D5W 100 mL MB+ (ROCEPHIN) 2 g INTRAVENOUS q 24 H docusate sodium 100 mg cap(s) (COLACE) 100 mg ORAL BID PRN polyethylene glycol 3350 17 g packet (MIRALAX, GLYCOLAX) 17 g ORAL DAILY PRN senna-docusate 8.6-50 mg 1 tablet (SENNA-S) 1 tablet ORAL/FEEDING TUBE BID PRN calcium carbonate 1,000 mg chewable tab(s) (TUMS) 1,000 mg ORAL/FEEDING TUBE BID PRN acetaminophen 650 mg tab(s) (TYLENOL) 650 mg ORAL q 4 H PRN sodium chloride 0.65 % 2 [place] (AYR, OCEAN) 2 [place] EACH NOSTRIL TID PRN bhhjqzhd-fgao-cjjrx acid chewable tablet (CENTRUM) 1 tablet ORAL DAILY cholecalciferol 3,000 Units tab(s) (VITAMIN D3) 3,000 Units ORAL DAILY cyanocobalamin 500 mcg tab(s) (VITAMIN B-12) 500 mcg ORAL DAILY thiamine 100 mg tab(s) (VITAMIN B1) 100 mg ORAL DAILY diphenhydrAMINE 25 mg (BENADRYL) 25 mg ORAL q 6 H PRN aspirin, enteric coated 81 mg tab(s) 81 mg ORAL DAILY metoprolol tartrate (short acting) 12.5 mg tab(s) (LOPRESSOR) 12.5 mg ORAL BID tamsulosin ER 0.4 mg cap(s) (FLOMAX) 0.4 mg ORAL DAILY pantoprazole DR 40 mg tab(s) (PROTONIX) 40 mg ORAL BID levothyroxine 200 mcg tab(s) (SYNTHROID) 200 mcg ORAL BEFORE BREAKFAST DAILY atorvastatin 80 mg tab(s) (LIPITOR) 80 mg ORAL AT BEDTIME Objective PHYSICAL EXAM: BP 114/66 Pulse 61 Temp 36.8 ?C (98.2 ?F) (Oral) Resp 24 Ht 193 cm (6' 4) Wt 106.1 kg (233 lb 12.8 oz) SpO2 95% BMI 28.46 kg/m? Intake/Output Summary (Last 24 hours) at 01/10/18 1144 Last data filed at 01/10/18 1100 Gross per 24 hour Intake 1835 ml Output 0 ml Net 1835 ml Constitutional: No acute distress, Responsive, Normal habitus and Well-nourished Neck: Trachea midline Cardiovascular: Regular rate and ryhthm, normal S1 and S2, no murmurs, rubs, or gallops Respiratory: Normal respiratory effort. Abdomen: Soft, non-tender, non-distended. Normal bowel sounds. No hepatosplenomegaly. Psychiatric: Alert and oriented x self, place, time, and setting Normal mood/affect Vascular Access: Hemodialysis catheter location: Right Nontunneled internal jugular. Exit site demonstrates: normal findings DATA: Diagnostic tests reviewed for today's visit: Most recent labs and imaging results. Recent Labs 01/10/181 01/09/1842401/08/18 0513 01/07/184 01/06/187 NA 134* 134* 132* 132* 133* K 4.4 4.5 4.4 4.4 4.6 CHLOR 100 99 97 98 96* CO2 25 26 26 25 24 BUN 17 19 28* 18 30* CREAT 3.49* 4.19* 5.47* 4.43* 6.01* GLUC 71* 80 77 80 82 ANION 9 9 9 9 13 CA 7.9* 7.9* 7.8* 7.7* 7.8* P 2.2* 2.9 3.7 3.2 3.5 MG 1.9 1.9 1.9 1.7 1.9 Recent Labs 01/10/18 0401 01/09/1842401/08/18 0513 WBC 3.78 3.68* 3.83 HB 7.5* 7.2* 6.9* HCT 23.7* 21.8* 21.4* PLT 92* 86* 89* Recent Labs 01/08/18 05 TBILI 0.6 ALT 30 AST 49* ALKPHOS 139* Assessment/Plan 62 year old male with a PMH including A-fibb, s/p AVR, history of CVA, Fe deficiency anemia and hemolytic anemia presented to [facility] as a transfer from OSH on 12/24. ?Initial presentation to OSH was due to suspected GI bleed. Patient had low Hg however no diagnostic findings on Colonoscopy, EGD or tagged RBC scan. Patient was transferred to [facility] upon worsening of renal function. ? 1. 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 Mild tubular atrophy and interstitial fibrosis ?-Patient also ANCA +, MPO +, dsDNA + ?-Bartonella henselae IgM positive at 1:64 indicating acute Bartonella henselae infection ?-Bartonella amato IgM is negative, IgG is positive indicating past bartonella amato infection ? ? 2. Electrolytes ?-Hyponatremia ? 3. Normocytic Anemia ?-Likely multifactorial cause including blood loss, hemolysis as well as acute renal failure ?-No concerning finding on BM bx. Hematology has signed off ? 5. Volume Overload. Edema likely also exacerbated by hypoalbuminemia ? ? ? PLAN 1. Continue current MWF IHD. ? 2. Herring has been removed. Can do bladder scan q48 hours since patient has BPH 3. Continue daily renal function panal 4. Renally dose medications 5. Treat underlying infection. Renal function may or may not return despite treating the now known underlying infectious agent ? ? Consent for HOSPICE ART THERAPIST: HOSPICE ART THERAPIST initiation date: 12/27/2017 Consent obtained and in EMR. SIGNATURE: Vasyl Truong MD PATIENT NAME: Frank Rivera DATE: January 10, 2018 TIME: 11:44 AM PAGER: [phone] NURSING PROG Observed: 01/10/2018 Status: COMPLETED Source: [place]ANO 10:34 AM [facility] REPOSITORY [facility] ID: [id number] Author: Harika (Rn) DIEUDONNE Razo Service: (none) Author Type: Registered Nurse Type: Nursing Progress Note Filed: 01/10/2018 10:35 AM Note Text: Nursing Progress Note Patient Name: Frank Rivera Patient Location: [place] [id number]/[id number] Pt. had sepsis alert. Dr. Diaz and Dr. Garner notified and aware. No new orders at this time. Will continue to monitor and assess. This note was completed by: Harika Razo RN TYPE AND SCREEN Collected: 01/10/2018 Status: F Source: PLANO 4:10 AM [facility] REPOSITORY TYPE CODE TESTS RESULT OUT OF REFERENCE UNITS RANGE LAB %ABR A ABO/RH(D) POSITIVE LAB % Antibody NEG Screen Performed By: #### TSCR #### [facility] [address] [place], [place] [address] BASIC METABOLIC PANL Collected: 01/10/2018 Status: F Source: PLANO 4:01 AM [facility] REPOSITORY TYPE CODE TESTS RESULT OUT OF REFERENCE UNITS RANGE LAB GLU 74-99 mg/dL Low Glucose 71 Result Comment: The [place] Diabetes Association (ADA) provides guidance for cutoff values for fasting glucose and random glucose. The ADA defines fasting as no caloric intake for at least 8 hours. Fas ting plasma glucose results between 100 to 125 mg/dL indicate increased risk for diabetes (prediabetes). Fasting plasma glucose results greater than or equal to 126 mg/dL meet the criteria for diagnosis of diabetes. In the absence of unequivocal hyperglycemia, results should be confirmed by repeat testing. In a patient with classic symptoms of hyperglycemia or hyperglycemic crisis, random plasma glucose results greater than or equal to 200 mg/dL meet the criteria for diagnosis of diabetes. Reference: Standards of Medical Care in Diabetes 2016, [place] Diabetes Association. Diabetes Care. 2016.39(Suppl 1). LAB BUN 9-24 mg/dL BUN 17 LAB CRET 0.73-1.22 mg/dL Creatinine High 3.49 LAB NA 136-144 mmol/L Low Sodium 134 LAB K 3.7-5.1 mmol/L Potassium 4.4 LAB CL 97-105 mmol/L Chloride 100 LAB CO2 22-30 mmol/L CO2 25 LAB AGAP 9-18 mmol/L Anion Gap 9 LAB CA 8.5-10.2 mg/dL Low Calcium, Total 7.9 LAB GFRAA eGFR- Amer. 22 LAB GFRNAA . eGFR-All Other Races 18 Result Comment: eGFR (Estimated GFR) Units of measure: mL/min/1.73 meters squared eGFR is derived from the reexpressed MDRD Study equation using the following parameters: serum creatinine, age, gender and race. The creatinine assay has been calibrated to be traceable to IDMS. An eGFR <60 mL/min/1.73m2 for >3 months is consistent with chronic kidney disease. Refer to KDOQI guidelines for clinical interpretation. In patients with unstable renal function, e.g. those with acute kidney injury, the eGFR may not accurately reflect actual GFR. Performed By: #### BMP, MG1, PHOS, CBCDIF #### [facility] [employer] [address] [place], [place] [address] MAGNESIUM Collected: 01/10/2018 Status: F Source: PLANO 4:[address] [facility] REPOSITORY TYPE CODE TESTS RESULT OUT OF REFERENCE UNITS RANGE LAB MG 1.7-2.3 mg/dL Magnesium 1.9 Performed By: #### BMP, MG1, PHOS, CBCDIF #### [facility] [address] [place], [place] [address] PHOSPHORUS Collected: 01/10/2018 Status: F Source: PLANO 4:[address] [place] [address] REPOSITORY TYPE CODE TESTS RESULT OUT OF REFERENCE UNITS RANGE LAB PHOS 2.7-4.8 mg/dL Low Phosphorus 2.2 Performed By: #### BMP, MG1, PHOS, CBCDIF #### [facility] [address] [place], [place] [address] CBC AND DIFFERENTIAL Collected: 01/10/2018 Status: F Source: PLANO 4:[address] [place] [address] REPOSITORY TYPE CODE TESTS RESULT OUT OF REFERENCE UNITS RANGE LAB WBC 3.70-11.00 k/uL WBC 3.78 LAB RBC 4.20-6.00 m/uL Low RBC 2.43 LAB HGB 13.0-17.0 g/dL Low Hemoglobin 7.5 LAB HCT 39.0-51.0 % Low Hematocrit 23.7 LAB MCV 80.0-100.0 fL MCV 97.5 LAB MCH 26.0-34.0 pG MCH 30.9 LAB MCHC 30.5-36.0 g/dL MCHC 31.6 LAB RDWCV 11.5-15.0 % RDW-CV High 17.8 LAB PLTCT 150-400 k/uL Low Platelet Count 92 Result Comment: No clot detected. LAB MPV 9.0-12.7 fL MPV 9.7 LAB ANEUT % Neut% 56.3 LAB AANEUT 1.45-7.50 k/uL Abs Neut 2.12 LAB ALYMP % Lymph% 31.5 LAB AALYMP 1.00-4.00 k/uL Abs Lymph 1.19 LAB AMONO % Pope% 10.6 LAB AAMONO <0.87 k/uL Abs Pope 0.40 LAB AEOS % Eosin% 0.8 LAB AAEOS <0.46 k/uL Abs Eosin 0.03 LAB ABASO % Baso% 0.8 LAB AABASO <0.11 k/uL Abs Baso 0.03 LAB AUNRBC 0 /100 WBC NRBCs 0.0 LAB ABNRBC <0.01 k/uL Absolute nRBC <0.01 LAB DTYP DTYPE Auto Diff Performed By: #### BMP, MG1, PHOS, CBCDIF #### [facility] [address] [place], [place] [address] PROGRESS Observed: 01/09/2018 Status: COMPLETED Source: PLANO 3:09 PM [facility] REPOSITORY HNO ID: [id number] Author: Adi Casiano) Emily Service: General Internal Medicine Author Type: Physician Type: Progress Notes Filed: 01/09/2018 3:24 PM Note Text: INPATIENT PROGRESS NOTE For questions regarding this patient, please page [phone] during 7 a.m. - 5 p.m. After 5 p.m., please page on-call Adrien pager [phone] for concerns. Brief Plan - Bartonella positive, on IV doxycycline and ceftriaxone per ID recs - CTS consulted: Dr. Cuauhtemoc Parker, - continue hemodialysis (-) as per nephrology recommendations - Monitor H/H and transfuse Hg < 7 mg/dL or platelets < 50 Interval History No acute events overnight. Doing well this morning. Denies any symptoms, no fever, chills, no shortness of breath. Physical Exam BP 107/62 Pulse 60 Temp 36.8 ?C (98.2 ?F) (Axillary) Resp 18 Ht 193 cm (6' 4) Wt 106.1 kg (233 lb 12.8 oz) SpO2 96% BMI 28.46 kg/m? -I/O: Intake/Output Summary (Last 24 hours) at 01/09/18 1509 Last data filed at 01/09/18 1400 Gross per 24 hour Intake 1251 ml Output 6000 ml Net -4749 ml GENERAL: Alert, no distress, cooperative SKIN: Skin color, texture, turgor normal. No rashes or lesions. LUNGS: CTAB CARDIAC: Murmur 2/6, systolic, right upper sternal border ABDOMEN: Soft, non-distended, LLQ tenderness, +BS EXTREMETIES: No ulcers, 1+ pitting edema to knees NEURO: Alert, oriented X 3.?motor exam grossly normal. Sensation grossly intact., Cranial nerves II-XII intact PULSES: 2+ radial Medications Current hospital medications: doxycycline 100 mg in D5W 250 mL Vial-Mate (VIBRAMYCIN) 100 mg INTRAVENOUS q 12 H cefTRIAXone 2 g in D5W 100 mL MB+ (ROCEPHIN) 2 g INTRAVENOUS q 24 H docusate sodium 100 mg cap(s) (COLACE) 100 mg ORAL BID PRN polyethylene glycol 3350 17 g packet (MIRALAX, GLYCOLAX) 17 g ORAL DAILY PRN senna-docusate 8.6-50 mg 1 tablet (SENNA-S) 1 tablet ORAL/FEEDING TUBE BID PRN calcium carbonate 1,000 mg chewable tab(s) (TUMS) 1,000 mg ORAL/FEEDING TUBE BID PRN acetaminophen 650 mg tab(s) (TYLENOL) 650 mg ORAL q 4 H PRN sodium chloride 0.65 % 2 [place] (AYR, OCEAN) 2 [place] EACH NOSTRIL TID PRN twkfzqfa-emob-ahmpo acid chewable tablet (CENTRUM) 1 tablet ORAL DAILY cholecalciferol 3,000 Units tab(s) (VITAMIN D3) 3,000 Units ORAL DAILY cyanocobalamin 500 mcg tab(s) (VITAMIN B-12) 500 mcg ORAL DAILY thiamine 100 mg tab(s) (VITAMIN B1) 100 mg ORAL DAILY diphenhydrAMINE 25 mg (BENADRYL) 25 mg ORAL q 6 H PRN aspirin, enteric coated 81 mg tab(s) 81 mg ORAL DAILY metoprolol tartrate (short acting) 12.5 mg tab(s) (LOPRESSOR) 12.5 mg ORAL BID tamsulosin ER 0.4 mg cap(s) (FLOMAX) 0.4 mg ORAL DAILY pantoprazole DR 40 mg tab(s) (PROTONIX) 40 mg ORAL BID levothyroxine 200 mcg tab(s) (SYNTHROID) 200 mcg ORAL BEFORE BREAKFAST DAILY atorvastatin 80 mg tab(s) (LIPITOR) 80 mg ORAL AT BEDTIME Labs CBC: Recent Labs 01/09/1842401/08/18 0513 01/07/18 0424 01/06/18 0407 01/05/18 0500 01/04/18 0431 01/03/18 0543 WBC 3.68* 3.83 3.80 4.48 4.28 5.14 4.56 HB 7.2* 6.9* 7.2* 7.3* 7.8* 7.9* 8.1* HCT 21.8* 21.4* 22.4* 23.1* 24.3* 24.3* 25.2* PLT 86* 89* 95* 91* 79* 80* 76* MCV 95.2 95.1 95.3 94.7 96.0 93.8 94.4 RDWCV 17.5* 17.3* 17.6* 17.1* 17.2* 17.2* 17.2* NEUTP -- 59.0 56.9 62.0 61.0 64.9 63.3 ABSNEUT -- 2.24 2.14 2.78 2.60 3.32 2.89 LYMPHP -- 31.6 32.6 27.2 29.2 25.5 25.9 MONOP -- 8.4 9.2 9.2 8.4 8.2 9.2 EODINP -- 0.5 0.8 0.9 0.7 0.6 0.9 BMP: Recent Labs 01/09/1842401/08/18 0513 01/07/18 0424 01/06/18 0407 01/05/18 0500 01/04/18 0431 01/03/18 0543 GLUC 80 77 80 82 85 86 82 NA 134* 132* 132* 133* 134* 132* 135* K 4.5 4.4 4.4 4.6 4.4 4.7 4.5 CHLOR 99 97 98 96* 98 96* 97 CO2 26 26 25 24 27 26 28 ANION 9 9 9 13 9 10 10 BUN 19 28* 18 30* 22 37* 32* CREAT 4.19* 5.47* 4.43* 6.01* 4.81* 6.61* 5.58* CHEM: Recent Labs 01/09/1842419/18 0513 01/07/18 0424 01/06/18 0407 01/05/18 0500 01/04/18 0431 01/03/18 0543 ALB -- 2.1* -- -- -- -- -- TPROT -- 6.1* -- -- -- -- -- CA 7.9* 7.8* 7.7* 7.8* 7.7* 7.6* 7.6* MG 1.9 1.9 1.7 1.9 1.8 1.8 1.8 HEPATIC: Recent Labs 01/08/18 0513 ALKPHOS 139* ALT 30 AST 49* TBILI 0.6 COAG: Recent Labs 01/08/18512 APTT 33.5* INR 1.3 URINALYSIS:No results for input(s): PH, SPGR, UGLUC, UBILI, UKET, UHB, UPROT, UROBIL, UWBC, SSA in the last 168 hours. Invalid input(s): NITR CARDIAC: No results for input(s): CKTEST, CKMB, CKMBP, TROPT, PBNP in the last 168 hours. Imaging ECHO TRANSESOPHAGEAL 01/01/2018 - Exam indication: ?Endocarditis - The left ventricle is normal in size. Left ventricular systolic function is normal. EF = 60 ? 5% (visual est.) - The right ventricle is dilated. Right ventricular systolic function is mildly decreased. - The left atrial cavity is dilated. - Previous RUDY ligation. Small residual RUDY. - The right atrial cavity is dilated. - There is moderate (2+ - 3+) tricuspid valve regurgitation. 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 There is moderately severe (3+) aortic valve regurgitation due to paravalvular endocarditis. - There is no patent foramen ovale as detected by Doppler and saline contrast. - The Aortic valve prosthesis appears to be well seated with evidence of mild degeneration and without any obvious mobile echodensity on its leaflets. There is thickening of the Aorto-Mitral curtain and posterior LA wall which is suggestive of either hematoma or active infection. - There does not appear to be any transvalvular AI however there is a diastolic flow arising from the subvalvular region which may (Clip #47, #42) or may represent 3+ paravalvular regurgitation with a very eccentric jet. Consider Cardiac CT for better characterization and to r/o the presence of a fistula or abscess. - There is a a small mobile echodensity within the RA which may be attached either ?to the Venous catheter or the atrial portion of one of the pacemaker leads (1.2cm ?x 0.55 cm, Clip #28). This may represent vegetation or thrombus. - Exam was compared with the prior CC echocardiographic exam performed on 12/25/2017. Thrombus/Vegetation on pacemaker lead/venous catheter and possible paralvalvular leak. XR CHEST 1V FRONTAL 12/27/2017 Lines, Tubes, and Devices: ?Right IJ line mid SVC. Stable pacemaker. Lungs and Pleura: ?Bilateral effusions and overlying opacity similar to prior. No pneumothorax. Cardiomediastinal silhouette: ?Stable cardiac silhouette. ? CT ABD/PEL WO IVCON 12/27/2017 LARGE LEFT RECTUS SHEATH HEMATOMA, STABLE OR SLIGHTLY INCREASED IN SIZE SINCE 12/25/2017. 3.3 CM ROUND LOW-ATTENUATION LESION ADJACENT TO THE CELIAC AXIS WHICH MAY BE AN ENLARGED LYMPH NODE. CHOLELITHIASIS WITHOUT EVIDENCE CHOLECYSTITIS. HEPATIC STEATOSIS. ? US ABD RT UPPER QUADRANT AND SPLEEN 12/26/2017 CHOLELITHIASIS IN A DISTENDED GALLBLADDER WITHOUT OTHER EVIDENCE OF ACUTE CHOLECYSTITIS. DIFFUSE HEPATIC STEATOSIS. The craniocaudal length of the spleen is 10.1 cm, normal. There are no splenic lesions. ? CT ABD/PEL WO IVCON 12/25/2017 Moderate LEFT rectus sheath hematoma Diffuse hepatic steatosis. 2.6 cm low-attenuation structure abutting the celiac, possibly an enlarged lymph node. ?Further evaluation with contrast-enhanced study should be considered. Cholelithiasis without evidence of acute cholecystitis. ? LEG DVT JORGE LUIS BOBBY 12/25/2017 RIGHT SIDE - DEEP VEINS Negative for acute deep vein thrombosis. Thickened redmond, patent distal external iliac vein and common femoral vein. Only segments visualized of the posterior tibial veins and peroneal veins. Multiple enlarged lymph nodes noted in the right groin with the largest measuring aproximately: 1.4 x 1.5 x 0.9 cm. RIGHT SIDE - SUPERFICIAL VEINS Thickened redmond, patent great saphenous?vein. LEFT SIDE - DEEP VEINS Only segments visualized of the posterior tibial veins and peroneal veins. Multiple enlarged lymph nodes noted in the right groin with the largest measuring aproximately: 2.3 x 1.8 x 0.7 cm. 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 ? XR CHEST 1V FRONTAL Lines, tubes, and devices: ?The patient is status post median sternotomy and left 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 clip placement. ?Left pacemaker device is in place with leads in the right atrium and the right ventricle. ?Surgical clips overlie the upper abdomen. Lungs and pleura: ?Patchy reticular opacities are noted, likely related to pulmonary edema. Hazy opacity overlying the right lung base is likely related to small right pleural effusion and adjacent atelectasis/consolidation. ?Also noted is trace left pleural effusion. ?A vertically oriented lucency overlying the right lower chest is favored to be a skinfold. Cardiomediastinal silhouette: ?Cardiac silhouette is enlarged with pulmonary venous congestion. ? ECHO 12/25/2017 - Technically difficult exam due to suboptimal positioning. - Exam indication: Initial evaluation of Heart Failure - The left ventricle is moderately dilated. There is moderate concentric left ventricular hypertrophy. Left ventricular systolic function is normal. EF = 66 ? 5% (2D biplane) - The right ventricle is normal in size. Right ventricular systolic function is normal. - The left atrial cavity is severely dilated. - The right atrial cavity is dilated. - There is moderate (2+) mitral valve regurgitation. Thickened mitral valve leaflets. - There is moderate (2+ - 3+) tricuspid valve regurgitation. 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 There is moderately severe (3+) aortic valve regurgitation. The peak gradient is 39 mmHg, the mean gradient is 17 mmHg and the dimensionless valve index is 0.53. There is both valvular and paravalvular AI. There is flow reversal in the descending aorta. - Estimated right ventricular systolic pressure is?likely underestimated due to a weak or incomplete tricuspid regurgitation signal and is, at least, 70 mmHg consistent with moderately severe pulmonary hypertension. Estimated right atrial pressure is 15 mmHg. - The patient has not had a prior CC echocardiographic exam for comparison. Assessment and Plan Mr. 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 MICU transfer to initiate dialysis secondary to volume overload. Patient is now anuric IRINA-D. Bartonella prosthetic AV IE. ? 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 Cuauhtemoc Parker assigned, PFT/DLCO to complete CTS pre-op evaluation, ?Neurology evaluation given recent stroke, ?repeat cath #Pancytopenia #Hemolytic anemia Presented with fatigue, shortness of breath History of UGIB secondary to Min-en-Y (most recently 2015), OSH EGD/C-scope/tagged RBC scan showed no evidence of bleed Requiring pRBC transfusion x 3 during this hospitalization Concerns for hemolytic process, not Petar driven--peripheral smear showed evidence of scant schistocytes, yojana cells, rare spherocytes, thrombocytopenia. ?Elevated Igs, will try to continue to workup lymphoproliferative process as potential etiology Plan: - Transfuse Hgb < 7, Plts < 50 ?#Atrial fibrillation S/p PPM for sick sinus syndrome Metoprolol 12.5mg BID home dose held for acute anemia, which has now stabilized HR in 80s-low 100s, HDS Plan: currently off AC due to rectus sheath hematoma -Continue metoprolol 12.5mg BID -Tele ? 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 - continue IHD - continue sodium bicarbonate 650mg TID - daily BMP - f/u Nephrology recs ? #CAD - continue atorvastatin 80mg qHS ? #Mild protein-calorie malnutrition - nutritional support ? #Hypothyroidism -Continue levothyroxine 200mcg qAM ? 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 Diet: Renal DVT PPx: IPCs GI PPx: Pantoprazole 40mg qDay Delano Nelson MD, PGY-2 Internal Medicine [facility] Pager #: [phone] Note: These recommendations are not final until staffed by provider For questions regarding this patient, please page [phone] during 7 a.m. - 5 p.m. After 5 p.m., please page on-call Adrine pager [phone] for concerns. [facility] STAFF PHYSICIAN NOTE OF PERSONAL INVOLVEMENT IN CARE I have reviewed the note documented by the resident and I personally participated in the hernandez components. I have discussed the case and management of the patient's care. The following comments revise or confirm relevant hernandez components of the note. Please See my addendum in a separate note Adi Diaz MD, FACP Associate Staff, Dept. Of Hospital Medicine PAGER - [phone] PROGRESS Observed: 01/09/2018 Status: COMPLETED Source: [place] 2:40 PM [facility] REPOSITORY HNO ID: [id number] Author: Vasyl Truong Service: Nephrology Author Type: Physician Type: Progress Notes Filed: 01/09/2018 2:43 PM Note Text: CONSULT PROGRESS NOTE NEPHROLOGY SERVICE SERVICE DATE: 01/09/2018 SERVICE TIME: 2:40 PM Subjective INTERVAL HISTORY: contd HD depen MEDICATIONS: Current hospital medications: doxycycline 100 mg in D5W 250 mL Vial-Mate (VIBRAMYCIN) 100 mg INTRAVENOUS q 12 H cefTRIAXone 2 g in D5W 100 mL MB+ (ROCEPHIN) 2 g INTRAVENOUS q 24 H acetaminophen 650 mg tab(s) (TYLENOL) 650 mg ORAL q 4 H PRN sodium chloride 0.65 % 2 [place] (AYR, OCEAN) 2 [place] EACH NOSTRIL TID PRN calcium carbonate 1,000 mg chewable tab(s) (TUMS) 1,000 mg ORAL/FEEDING TUBE 2 times per day iedrxhfl-fule-kxlaz acid chewable tablet (CENTRUM) 1 tablet ORAL DAILY cholecalciferol 3,000 Units tab(s) (VITAMIN D3) 3,000 Units ORAL DAILY cyanocobalamin 500 mcg tab(s) (VITAMIN B-12) 500 mcg ORAL DAILY thiamine 100 mg tab(s) (VITAMIN B1) 100 mg ORAL DAILY senna-docusate 8.6-50 mg 1 tablet (SENNA-S) 1 tablet ORAL/FEEDING TUBE BID PRN polyethylene glycol 3350 17 g packet (MIRALAX, GLYCOLAX) 17 g ORAL DAILY PRN diphenhydrAMINE 25 mg (BENADRYL) 25 mg ORAL q 6 H PRN aspirin, enteric coated 81 mg tab(s) 81 mg ORAL DAILY metoprolol tartrate (short acting) 12.5 mg tab(s) (LOPRESSOR) 12.5 mg ORAL BID docusate sodium 100 mg cap(s) (COLACE) 100 mg ORAL BID tamsulosin ER 0.4 mg cap(s) (FLOMAX) 0.4 mg ORAL DAILY pantoprazole DR 40 mg tab(s) (PROTONIX) 40 mg ORAL BID levothyroxine 200 mcg tab(s) (SYNTHROID) 200 mcg ORAL BEFORE BREAKFAST DAILY atorvastatin 80 mg tab(s) (LIPITOR) 80 mg ORAL AT BEDTIME Objective PHYSICAL EXAM: BP 107/62 Pulse 60 Temp 36.8 ?C (98.2 ?F) (Axillary) Resp 18 Ht 193 cm (6' 4) Wt 106.1 kg (233 lb 12.8 oz) SpO2 96% BMI 28.46 kg/m? Intake/Output Summary (Last 24 hours) at 10/20/18 1440 Last data filed at 01/09/18 1400 Gross per 24 hour Intake 1251 ml Output 6000 ml Net -4749 ml Constitutional: No acute distress, Normal habitus, Well-nourished and drowsy Neck: Trachea midline Cardiovascular: Regular rate and ryhthm, normal S1 and S2, no murmurs, rubs, or gallops tr edema Respiratory: Normal respiratory effort. Abdomen: Soft, non-tender, non-distended. Normal bowel sounds. No hepatosplenomegaly. Psychiatric: Alert and oriented x self, place, time, and setting Vascular Access: Hemodialysis catheter location: Right Nontunneled internal jugular. Exit site demonstrates: normal findings DATA: Diagnostic tests reviewed for today's visit: Most recent labs and imaging results. Recent Labs 01/09/1842401/08/1851201/07/1842301/06/18 0407 01/05/18 0500 NA 134* 132* 132* 133* 134* K 4.5 4.4 4.4 4.6 4.4 CHLOR 99 97 98 96* 98 CO2 26 26 25 24 27 BUN 19 28* 18 30* 22 CREAT 4.19* 5.47* 4.43* 6.01* 4.81* GLUC 80 77 80 82 85 ANION 9 9 9 13 9 CA 7.9* 7.8* 7.7* 7.8* 7.7* P 2.9 3.7 3.2 3.5 3.2 MG 1.9 1.9 1.7 1.9 1.8 Recent Labs 01/09/1842401/08/1851201/07/18 042 WBC 3.68* 3.83 3.80 HB 7.2* 6.9* 7.2* HCT 21.8* 21.4* 22.4* PLT 86* 89* 95* Recent Labs 01/09/1842412/24/17 1632 MAX -- -- 422.0 TRANSFERSAT -- -- >89* HB 7.2* < > -- < > = values in this interval not displayed. Recent Labs 01/09/1842401/08/18512 CA 7.9* 7.8* P 2.9 3.7 ALB -- 2.1* No results for input(s): BUNRAT, BUNPR, BUNPO in the last 168 hours. Recent Labs 12/25/17 1718 HEPSABQ Negative Recent Labs 01/08/18 0513 TBILI 0.6 ALT 30 AST 49* ALKPHOS 139* Assessment/Plan 62 year old male with a PMH including A-fibb, s/p AVR, history of CVA, Fe deficiency anemia and hemolytic anemia presented to [facility] as a transfer from OSH on 12/24. Initial presentation to OSH was due to suspected GI bleed. Patient had low Hg however no diagnostic findings on Colonoscopy, EGD or tagged RBC scan. Patient was transferred to [facility] upon worsening of renal function. ? 1. 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 -Patient also ANCA +, MPO +, dsDNA + -Bartonella henselae IgM positive at 1:64 indicating acute Bartonella henselae infection -Bartonella amato IgM is negative, however IgG is positive indicating past bartonella amato infection ? 2. Electrolytes -Hyponatremia ? 3. Normocytic Anemia -Likely multifactorial cause including blood loss, hemolysis as well as acute renal failure -No concerning finding on BM bx. Hematology has signed off ? 5. Volume Overload. Edema likely also exacerbated by hypoalbuminemia ? ? ? PLAN 1. Continue current MWF IHD. Seen on HD today. Orders confirmed. ? 2. Herring has been removed. Can do bladder scan q48 hours since patient has BPH 3. Continue daily renal function panal 4. Renally dose medications 5. Treat underlying infection. Renal function may or may not return despite treating the now known underlying infectious agent ? Consent for HOSPICE ART THERAPIST: HOSPICE ART THERAPIST initiation date: 12/27/2017 Consent obtained and in EMR. SIGNATURE: Vasyl Truong MD PATIENT NAME: Frank Rivera DATE: January 09, 2018 TIME: 2:40 PM PAGER: [phone] PROGRESS Observed: 01/09/2018 Status: COMPLETED Source: [place] 2:38 PM [facility] REPOSITORY HNO ID: [id number] Author: Adi Casiano) Emily Service: Hospital Medicine Author Type: Physician Type: Progress Notes Filed: 01/09/2018 2:48 PM Note Text: [facility] STAFF PHYSICIAN NOTE OF PERSONAL INVOLVEMENT IN CARE Weekend Coverage for Dr. Cintia Wiley For full details please refer to IM progress not from today by 62y/o gentleman with atrial fibrillation and SSS s/p PPM, HTN, hypothyroidism, aortic stenosis s/p AVR and RUDY, history of Min-en-Y bypass c/b recurrent GIB, ADRIANNE, B12 deficiency, who presents to [facility] on 12/24/17 with fatigue and shortness of breath who was transferred from OSH with IRINA . MICU transfer to initiate dialysis secondary to volume overload. Patient is now anuric IRINA-D. Pt seen and examined during HD Denied any complaints Blood cx Neg Bartonella serologies-IgG for Bartonella henselae greater than 1:1024, IgG for Bartonella amato 1:1024 On Abx as per ID recs ( DOXy BID and Ceftriaxone) CHANDRAKANT noted Appreciate ID and Cardiac Sx recs , Card Sx - reviewing OSH records Not on Ac for A fib - 2/2 recent Rectus sheath hematoma Anemia- underwent BM biopsy - hematology has signed off, no clear pathology for anemia found ? Hemolysis ? Receiving 1 unit PRBC today Thrombocytopenia - stable Adi Diaz MD, FACP Associate Staff, Dept. Of Hospital Medicine PAGER - [phone] BASIC METABOLIC PANL Collected: 01/09/2018 Status: F Source: [place]AN[place] 4:25 AM [facility] REPOSITORY TYPE CODE TESTS RESULT OUT OF REFERENCE UNITS RANGE LAB GLU 74-99 mg/dL Glucose 80 Result Comment: The [place] Diabetes Association (ADA) provides guidance for cutoff values for fasting glucose and random glucose. The ADA defines fasting as no caloric intake for at least 8 hours. Fas ting plasma glucose results between 100 to 125 mg/dL indicate increased risk for diabetes (prediabetes). Fasting plasma glucose results greater than or equal to 126 mg/dL meet the criteria for diagnosis of diabetes. In the absence of unequivocal hyperglycemia, results should be confirmed by repeat testing. In a patient with classic symptoms of hyperglycemia or hyperglycemic crisis, random plasma glucose results greater than or equal to 200 mg/dL meet the criteria for diagnosis of diabetes. Reference: Standards of Medical Care in Diabetes 2016, [place] Diabetes Association. Diabetes Care. 2016.39(Suppl 1). LAB BUN 9-24 mg/dL BUN 19 LAB CRET 0.73-1.22 mg/dL Creatinine High 4.19 LAB NA 136-144 mmol/L Low Sodium 134 LAB K 3.7-5.1 mmol/L Potassium 4.5 LAB CL 97-105 mmol/L Chloride 99 LAB CO2 22-30 mmol/L CO2 26 LAB AGAP 9-18 mmol/L Anion Gap 9 LAB CA 8.5-10.2 mg/dL Low Calcium, Total 7.9 LAB GFRAA eGFR- Amer. 18 LAB GFRNAA . eGFR-All Other Races 15 Result Comment: eGFR (Estimated GFR) Units of measure: mL/min/1.73 meters squared eGFR is derived from the reexpressed MDRD Study equation using the following parameters: serum creatinine, age, gender and race. The creatinine assay has been calibrated to be traceable to IDMS. An eGFR <60 mL/min/1.73m2 for >3 months is consistent with chronic kidney disease. Refer to KDOQI guidelines for clinical interpretation. In patients with unstable renal function, e.g. those with acute kidney injury, the eGFR may not accurately reflect actual GFR. Performed By: #### BMP, MG1, PHOS, CBCDIF #### [facility] [employer] [address] [address] MAGNESIUM Collected: 01/09/2018 Status: F Source: [place]AN[place] 4:25 AM [facility] REPOSITORY TYPE CODE TESTS RESULT OUT OF REFERENCE UNITS RANGE LAB MG 1.7-2.3 mg/dL Magnesium 1.9 Performed By: #### BMP, MG1, PHOS, CBCDIF #### [facility] [employer] [address] [place] [address] PHOSPHORUS Collected: 01/09/2018 Status: F Source: [place] 4:25 AM [facility] REPOSITORY TYPE CODE TESTS RESULT OUT OF REFERENCE UNITS RANGE LAB PHOS 2.7-4.8 mg/dL Phosphorus 2.9 Performed By: #### BMP, MG1, PHOS, CBCDIF #### [facility] [employer] [address] [address] CBC AND DIFFERENTIAL Collected: 01/09/2018 Status: F Source: [place] 4:25 AM [facility] REPOSITORY TYPE CODE TESTS RESULT OUT OF REFERENCE UNITS RANGE LAB WBC 3.70-11.00 k/uL Low WBC 3.68 LAB RBC 4.20-6.00 m/uL Low RBC 2.29 LAB HGB 13.0-17.0 g/dL Low Hemoglobin 7.2 LAB HCT 39.0-51.0 % Low Hematocrit 21.8 LAB MCV 80.0-100.0 fL MCV 95.2 LAB MCH 26.0-34.0 pG MCH 31.4 LAB MCHC 30.5-36.0 g/dL MCHC 33.0 LAB RDWCV 11.5-15.0 % RDW-CV High 17.5 LAB PLTCT 150-400 k/uL Low Platelet Count 86 Result Comment: No clot detected. LAB MPV 9.0-12.7 fL MPV 10.5 LAB ANEUT % Neut% 74.0 LAB AANEUT 1.45-7.50 k/uL Abs Neut 2.72 LAB ALYMP % Lymph% 17.4 LAB AALYMP 1.00-4.00 k/uL Abs Lymph 0.64 Low LAB AMONO % Pope% 5.2 LAB AAMONO <0.87 k/uL Abs Pope 0.19 LAB AEOS % Eosin% 1.7 LAB AAEOS <0.46 k/uL Abs Eosin 0.06 LAB ABASO % Baso% 1.7 LAB AABASO <0.11 k/uL Abs Baso 0.06 LAB ANIIMI Anisocytosis Present LAB POLIMI Polychromasia Slight LAB RCFIMI RBC Fragments Few LAB PLTEST Platelet Estimate Platelet estimate decreased LAB DTYP DTYPE Manual Diff Performed By: #### BMP, MG1, PHOS, CBCDIF #### [facility] [address] [place] [address] CONSULT PROG Observed: 01/08/2018 Status: COMPLETED Source: [place] 5:46 PM [facility] REPOSITORY HNO ID: [id number] Author: Rohit Olivas Service: Infectious Disease Author Type: Physician Type: Consult Progress Note Filed: 01/08/2018 5:57 PM Note Text: INFECTIOUS DISEASE CONSULT SERVICE PROGRESS NOTE Patient Name: Frank Rivera Interval Events: Course reviewed Seen during dialysis No new symptoms Denies any contact with cats In addition to those reviewed and documented in the HPI all other systems reviewed and were negative. MEDICATIONS Medications reviewed. Current hospital medications: acetaminophen 650 mg tab(s) (TYLENOL) 650 mg ORAL q 4 H PRN sodium chloride 0.65 % 2 [place] (AYR, OCEAN) 2 [place] EACH NOSTRIL TID PRN calcium carbonate 1,000 mg chewable tab(s) (TUMS) 1,000 mg ORAL/FEEDING TUBE 2 times per day ggptoscp-gpdz-yadyb acid chewable tablet (CENTRUM) 1 tablet ORAL DAILY cholecalciferol 3,000 Units tab(s) (VITAMIN D3) 3,000 Units ORAL DAILY cyanocobalamin 500 mcg tab(s) (VITAMIN B-12) 500 mcg ORAL DAILY thiamine 100 mg tab(s) (VITAMIN B1) 100 mg ORAL DAILY senna-docusate 8.6-50 mg 1 tablet (SENNA-S) 1 tablet ORAL/FEEDING TUBE BID PRN polyethylene glycol 3350 17 g packet (MIRALAX, GLYCOLAX) 17 g ORAL DAILY PRN gentamicin 100 mg in NaCl (iso-osmotic) 100 mL 100 mg INTRAVENOUS MO-WE-FR doxycycline hyclate 100 mg cap(s) (VIBRAMYCIN) 100 mg ORAL q 12 H diphenhydrAMINE 25 mg (BENADRYL) 25 mg ORAL q 6 H PRN aspirin, enteric coated 81 mg tab(s) 81 mg ORAL DAILY metoprolol tartrate (short acting) 12.5 mg tab(s) (LOPRESSOR) 12.5 mg ORAL BID docusate sodium 100 mg cap(s) (COLACE) 100 mg ORAL BID tamsulosin ER 0.4 mg cap(s) (FLOMAX) 0.4 mg ORAL DAILY pantoprazole DR 40 mg tab(s) (PROTONIX) 40 mg ORAL BID levothyroxine 200 mcg tab(s) (SYNTHROID) 200 mcg ORAL BEFORE BREAKFAST DAILY atorvastatin 80 mg tab(s) (LIPITOR) 80 mg ORAL AT BEDTIME Examination: BP 132/65 Pulse 68 Temp 36.8 ?C (98.2 ?F) (Oral) Resp 18 Ht 193 cm (6' 4) Wt 106.1 kg (233 lb 12.8 oz) SpO2 95% BMI 28.46 kg/m? Temp (24hrs), Av.7 ?C (98.1 ?F), Min:36.5 ?C (97.7 ?F), Max:37.1 ?C (98.7 ?F) General appearance: dozing, dialysis in session, awakes and is alert Skin: no rash Head: neg Eyes: anicteric Oropharynx: neg Neck: right ij hd catheter Back: not examined Lungs: bilateral breath sounds anteriorly Heart: rrnl Abdomen: soft Extremities: Bilateral lower extremity edema Musculoskeletal: Negative Peripheral pulses: radial pulses palpable Lab, Microbiology and Imaging Data: Personally reviewed imaging studies, laboratory results, and microbiology results. ASSESSMENT: 62-year-old with multiple medical problems including but not limited to atrial fibrillation, hypertension, and aortic stenosis status post aortic valve replacement in April 2017 with a permanent pacemaker placed shortly thereafter was transferred to our hospital on 12/24 for further evaluation of an acute kidney injury. He initially presented to an outside hospital on 12/19 for further evaluation of a new anemia and renal failure after presenting to his primary care physician with fatigue and shortness of breath. He was treated empirically with prednisone for a glomerular nephritis and transferred. 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 He is requiring renal replacement therapy. Notable aspects of his workup thus far from infectious disease perspective has included: 2 blood cultures 12/25-no growth to date Bartonella serologies-IgG for Bartonella henselae greater than 1:1024, IgG for Bartonella amato 1:1024 Transesophageal echocardiogram 01/01-2-3+ TR, 3+ AI, thickening of the aorto-mitral curtain and posterior LA wall suggestive of either hematoma or active infection, small mobile echodensity within the RA-vegetation versus thrombus CT chest cardiac 01/07-moderate diffuse leaflet calcification CT brain 01/07-no acute findings CT abdomen and pelvis 01/06-evolving large rectus sheath hematoma 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 Interestingly, despite his titers he has no obvious epidemiological length to this genus. He continues to require renal replacement therapy. He is being considered for open heart surgery. RECOMMENDATIONS: Continue doxycycline-change to 100 mg IV every 12 hours Stop gentamicin Start ceftriaxone 2 g IV every 24 hours No infectious disease contraindication open heart surgery Monitoring for ongoing therapeutic and potential untoward effect of antibiotic therapy. Dr. Mena available over the weekend. I will return on Thursday. Signature: Rohit Olivas MD Pager: [phone] CONSULT PROG Observed: 01/08/2018 Status: COMPLETED Source: PLANO 5:43 PM [facility] REPOSITORY O ID: [id number] Author: Janae Cao Service: Cardiac Surgery Author Type: Nurse Practitioner Type: Consult Progress Note Filed: 01/08/2018 5:49 PM Note Text: [facility] CONSULT PROGRESS NOTE Frank Rivera [id number] CONSULTING SERVICE: Cardiothoracic Surgery PLAN: Obtained OSH cath from [facility] today; downloaded to [employer]. Cardiac CT and Brain completed. PFT/DLCO pending. SUBJECTIVE: INTERVAL HISTORY: 62 yoM with PVE (Bartonella) now requiring dialysis for ARF. Clinically remains stable. . OBJECTIVE: MEDICATIONS: Current hospital medications: acetaminophen 650 mg tab(s) (TYLENOL) 650 mg ORAL q 4 H PRN sodium chloride 0.65 % 2 [place] (AYR, OCEAN) 2 [place] EACH NOSTRIL TID PRN calcium carbonate 1,000 mg chewable tab(s) (TUMS) 1,000 mg ORAL/FEEDING TUBE 2 times per day sitceshm-blhu-xrvcg acid chewable tablet (CENTRUM) 1 tablet ORAL DAILY cholecalciferol 3,000 Units tab(s) (VITAMIN D3) 3,000 Units ORAL DAILY cyanocobalamin 500 mcg tab(s) (VITAMIN B-12) 500 mcg ORAL DAILY thiamine 100 mg tab(s) (VITAMIN B1) 100 mg ORAL DAILY senna-docusate 8.6-50 mg 1 tablet (SENNA-S) 1 tablet ORAL/FEEDING TUBE BID PRN polyethylene glycol 3350 17 g packet (MIRALAX, GLYCOLAX) 17 g ORAL DAILY PRN gentamicin 100 mg in NaCl (iso-osmotic) 100 mL 100 mg INTRAVENOUS MO-WE-FR doxycycline hyclate 100 mg cap(s) (VIBRAMYCIN) 100 mg ORAL q 12 H diphenhydrAMINE 25 mg (BENADRYL) 25 mg ORAL q 6 H PRN aspirin, enteric coated 81 mg tab(s) 81 mg ORAL DAILY metoprolol tartrate (short acting) 12.5 mg tab(s) (LOPRESSOR) 12.5 mg ORAL BID docusate sodium 100 mg cap(s) (COLACE) 100 mg ORAL BID tamsulosin ER 0.4 mg cap(s) (FLOMAX) 0.4 mg ORAL DAILY pantoprazole DR 40 mg tab(s) (PROTONIX) 40 mg ORAL BID levothyroxine 200 mcg tab(s) (SYNTHROID) 200 mcg ORAL BEFORE BREAKFAST DAILY atorvastatin 80 mg tab(s) (LIPITOR) 80 mg ORAL AT BEDTIME PHYSICAL EXAM: 01/08/18 1240 01/08/18 1255 01/08/18 1320 01/08/18 1636 BP: 135/75 138/79 149/71 132/65 Pulse: 63 62 63 68 Resp: Temp: 36.5 ?C (97.7 ?F) 36.8 ?C (98.2 ?F) 36.5 ?C (97.7 ?F) 36.8 ?C (98.2 ?F) TempSrc: Temporal Artery Temporal Artery Temporal Artery Oral SpO2: 95% Weight: Height: Intake/Output Summary (Last 24 hours) at 01/08/18 1743 Last data filed at 01/08/18 1600 Gross per 24 hour Intake 1001 ml Output 3025 ml Net -2023 ml PHYSICAL EXAMINATION: General appearance: Well appearing, alert, in no acute distress, well-hydrated, well nourished. Skin: Skin color, texture, turgor normal, no suspicious rashes or lesions Head: Normocephalic, no masses, lesions, tenderness or abnormalities Eyes: Anicteric sclera. Pupils are equally round and reactive to light. Extraocular movements are intact. Neck: Supple, no adenopathy; thyroid symmetric, normal size, no bruits Back: Normal exam Lungs: Lungs clear to auscultation. No wheezing, rhonchi, rales Heart: RRR gallop, or rubs. No ectopy 2/6 MICAH Abdomen: Normal abdominal exam, Abdomen soft, non-tender. Bowel sounds normal. No masses, organomegaly Extremities: No deformities, edema, skin discoloration, clubbing or cyanosis. Good capillary refill. Musculoskeletal: No joint swelling, deformity, or tenderness Peripheral pulses: Normal Neuro:Sensation grossly intact. DATA: Laboratory: Recent Labs 01/08/18 0513 01/07/18 0424 01/06/18 0407 WBC 3.83 3.80 4.48 HB 6.9* 7.2* 7.3* HCT 21.4* 22.4* 23.1* PLT 89* 95* 91* NA 132* 132* 133* K 4.4 4.4 4.6 CHLOR 97 98 96* CO2 26 25 24 BUN 28* 18 30* CREAT 5.47* 4.43* 6.01* GLUC 77 80 82 ] Recent Labs 01/08/18 0513 INR 1.3 SIGNATURE: Janae Cao APRN.CNP PAGER: [phone] DATE of SERVICE: 01/08/2018 TIME of SERVICE: 5:49 PM THERAPY NT Observed: 01/08/2018 Status: COMPLETED Source: [place] 1:08 PM [facility] REPOSITORY HNO ID: [id number] Author: Nikole Baca Service: Occupational Therapy Author Type: Occupational Therapist Type: Therapy (PT/OT/Speech/Resp) Filed: 01/08/2018 1:08 PM Note Text: OCCUPATIONAL THERAPY MISSED VISIT SERVICE DATE: 01/08/2018 SERVICE TIME: 1308 to 1308 ROOM: [place] [address] ([facility] ([facility] V[facility]/Ultrasound)) Attempted Treatment. Patient not seen due to Test/Procedure. Will re-attempt as able. SIGNATURE: Nikole Baca OTR/L PATIENT NAME: Frank Rivera DATE: January 08, 2018 TIME: 1:08 PM CONSULT PROG Observed: 01/08/2018 Status: COMPLETED Source: [place]AN[place] 1:06 PM [facility] REPOSITORY HNO ID: [id number] Author: Vincent Coe Service: Nephrology Author Type: Physician Type: Consult Progress Note Filed: 01/08/2018 4:47 PM Note Text: CONSULT PROGRESS NOTE NEPHROLOGY SERVICE SERVICE DATE: 01/08/2018 SERVICE TIME: 11:43 AM Subjective INTERVAL HISTORY: Patient still with lower extremity swelling. Will be getting another session of HD today. MEDICATIONS: Current Medications Reviewed Objective PHYSICAL EXAM: BP 135/75 Pulse 63 Temp 36.5 ?C (97.7 ?F) (Temporal Artery) Resp 18 Ht 193 cm (6' 4) Wt 106.1 kg (233 lb 12.8 oz) SpO2 95% BMI 28.46 kg/m? Intake/Output Summary (Last 24 hours) at 01/08/18 1307 Last data filed at 01/08/18 0900 Gross per 24 hour Intake 1020 ml Output 25 ml Net 995 ml Constitutional: No acute distress, Responsive, Normal habitus and Well-nourished Neck: Trachea midline Cardiovascular: Edema present: bilateral lower extremities Respiratory: Normal respiratory effort. Lungs clear bilaterally. Abdomen: Soft, non-tender, non-distended. Normal bowel sounds. No hepatosplenomegaly. Psychiatric: Alert and oriented x self, place, time, and setting Normal mood/affect Vascular Access: Hemodialysis catheter location: Right Nontunneled internal jugular. Exit site demonstrates: normal findings DATA: Diagnostic tests reviewed for today's visit: Most recent labs and imaging results. Recent Labs 01/08/1851201/07/18 0424 01/06/18 0407 01/05/18 0500 01/04/18 0431 NA 132* 132* 133* 134* 132* K 4.4 4.4 4.6 4.4 4.7 CHLOR 97 98 96* 98 96* CO2 26 25 24 27 26 BUN 28* 18 30* 22 37* CREAT 5.47* 4.43* 6.01* 4.81* 6.61* GLUC 77 80 82 85 86 ANION 9 9 13 9 10 CA 7.8* 7.7* 7.8* 7.7* 7.6* P 3.7 3.2 3.5 3.2 3.8 MG 1.9 1.7 1.9 1.8 1.8 Recent Labs 01/08/1851201/07/184 01/06/18 0407 WBC 3.83 3.80 4.48 HB 6.9* 7.2* 7.3* HCT 21.4* 22.4* 23.1* PLT 89* 95* 91* Assessment/Plan 62 year old male with a PMH including A-fibb, s/p AVR, history of CVA, Fe deficiency anemia and hemolytic anemia presented to [facility] as a transfer from OSH on 12/24. Initial presentation to OSH was due to suspected GI bleed. Patient had low Hg however no diagnostic findings on Colonoscopy, EGD or tagged RBC scan. Patient was transferred to [facility] upon worsening of renal function. 1. 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 Electrolytes -Hyponatremia 3. Normocytic Anemia -Likely multifactorial cause including blood loss, hemolysis as well as acute renal failure -No concerning finding on BM bx. Hematology has signed off 5. Volume Overload. Edema likely also exacerbated by hypoalbuminemia PLAN 1. Continue current MWF IHD. To have HD today in addition to likely additional session tomorrow for fluid removal Agree 2. Herring has been removed. Can do bladder scan q48 hours since patient has BPH 3. Continue daily renal function panal 4. Renally dose medications 5. Treat underlying infection. Renal function may or may not return despite treating the now known underlying infectious agent Consent for HOSPICE ART THERAPIST: HOSPICE ART THERAPIST initiation date: 12/27/2017 Consent obtained and in EMR. This note has not been reviewed by attending physician. Plan not finalized until addendum is placed SIGNATURE: Yue Vargas MD PATIENT NAME: Frank Rivera DATE: January 04, 2018 TIME: 12:23 PM PAGER: [phone] Staff note: I interviewed and examined this patient myself and agree with the resident's/fellows/physican castings trimmer findings, impressions and plan. Patient seen on dialysis. Orders confirmed. Vincent Coe DO THERAPY NT Observed: 01/08/2018 Status: COMPLETED Source: [place] 12:30 PM [facility] REPOSITORY O ID: [id number] Author: Ahmet Armando [facility] Service: Physical Therapy Author Type: Decaler Type: Therapy (PT/OT/Speech/Resp) Filed: 01/08/2018 12:31 PM Note Text: Attestation signed by Loki Lei at 01/08/2018 5:36 PM I reviewed and agree with the documentation corresponding to this therapy visit. SIGNATURE: Loki Lei PT DATE: January 08, 2018 TIME: 5:36 PM PHYSICAL THERAPY MISSED VISIT SERVICE DATE: 01/08/2018 SERVICE TIME: 1230 to 1230 ROOM: [place] [id number] ([facility] (J35 Vasc/Ultrasound)) Attempted Treatment. Patient not seen due to Test/Procedure. SIGNATURE: Ahmet Marie PTA PATIENT NAME: Frank Rivera DATE: January 08, 2018 TIME: 12:31 PM NURSING PROG Observed: 01/08/2018 Status: COMPLETED Source: [place] 11:26 AM [facility] REPOSITORY HNO ID: [id number] Author: Harika (Dieudonne) DIEUDONNE Razo Service: (none) Author Type: Registered Nurse Type: Nursing Progress Note Filed: 01/08/2018 11:26 AM Note Text: Nursing Progress Note Patient Name: rFank Rivera Patient Location: [place] [address] Pt. Refusing dose of Tums and colace. Pt. had BM this morning. Paged Dr. Nelson 11:25. This note was completed by: Harika Razo RN CASE MANAGEM Observed: 01/08/2018 Status: COMPLETED Source: [place] 11:08 AM [facility] REPOSITORY HNO ID: [id number] Author: Terrie Garcia (Sw) Service: Care Management Author Type: Director Of Safety And Security Type: Care Mgt Progress Note Filed: 01/08/2018 11:10 AM Note Text: CARE MANAGEMENT PROGRESS NOTE SERVICE DATE: 01/08/2018 SERVICE TIME:11:08 AM LOS: 15 days Needs Prior to Discharge: To Be Determined Per medical team no plan for weekend discharge. Cardiovascular following for potential surgery. SW will follow. For questions or concerns over the weekend, please page [phone]. SIGNATURE: BARBARA Wade PATIENT NAME: Frank Rivera DATE: January 08, 2018 TIME: 11:08 AM PAGER/CONTACT #:[phone] PROGRESS Observed: 01/08/2018 Status: COMPLETED Source: [place] 8:20 AM [facility] REPOSITORY HNO ID: [id number] Author: Cintia Wiley Service: Hospital Medicine Author Type: Physician Type: Progress Notes Filed: 01/08/2018 5:12 PM Note Text: INPATIENT PROGRESS NOTE For questions regarding this patient, please page [phone] during 7 a.m. - 5 p.m. After 5 p.m., please page on-call Adrien pager [phone] for concerns. Brief Plan - OSH CHANDRAKANT obtained, pending review by ID and Cardiology - Bartonella positive, d/c'ed vanc and ceftriaxone, continue gentamycin, doxy - Herring removed - CTS consulted: Dr. Cuauhtemoc Parker, cardiac CT, brain imaging (recent stroke), PFT/DLCO (d/t smoking history) and will discuss if a repeat cardiac cath is necessary as a part of the evaluation. - possible transfer to Cardiology floor for pre-op eval - pt complaining of RLQ pain --> likely MSK, given tylenol, CT abd/pelvis negative, stable L rectus sheath hematoma - continue hemodialysis (-) as per nephrology recommendations - Monitor H/H and transfuse Hg < 7 mg/dL or platelets < 50 Interval History No acute events overnight. Doing well this morning. Denies any symptoms, no fever, chills, no shortness of breath. IV Lasix 120mg x 1 challenge 01/03 overnight -- minimal increase in UOP Physical Exam BP 111/67 Pulse 66 Temp 37.1 ?C (98.7 ?F) (Oral) Resp 18 Ht 193 cm (6' 4) Wt 110.8 kg (244 lb 3.2 oz) SpO2 95% BMI 29.72 kg/m? -I/O: Intake/Output Summary (Last 24 hours) at 01/08/18 0820 Last data filed at 01/08/18 0600 Gross per 24 hour Intake 900 ml Output 25 ml Net 875 ml GENERAL: Alert, no distress, cooperative SKIN: Skin color, texture, turgor normal. No rashes or lesions. LUNGS: CTAB CARDIAC: Murmur 2/6, systolic, right upper sternal border ABDOMEN: Soft, non-distended, LLQ tenderness, +BS EXTREMETIES: No ulcers, 1-2+ pitting edema to knees NEURO: Alert, oriented X 3.?motor exam grossly normal. Sensation grossly intact., Cranial nerves II-XII intact PULSES: 2+ radial Medications Current hospital medications: acetaminophen 650 mg tab(s) (TYLENOL) 650 mg ORAL q 4 H PRN sodium chloride 0.65 % 2 [place] (AYR, OCEAN) 2 [place] EACH NOSTRIL TID PRN calcium carbonate 1,000 mg chewable tab(s) (TUMS) 1,000 mg ORAL/FEEDING TUBE 2 times per day [id number] acid chewable tablet (CENTRUM) 1 tablet ORAL DAILY cholecalciferol 3,000 Units tab(s) (VITAMIN D3) 3,000 Units ORAL DAILY cyanocobalamin 500 mcg tab(s) (VITAMIN B-12) 500 mcg ORAL DAILY thiamine 100 mg tab(s) (VITAMIN B1) 100 mg ORAL DAILY senna-docusate 8.6-50 mg 1 tablet (SENNA-S) 1 tablet ORAL/FEEDING TUBE BID PRN polyethylene glycol 3350 17 g packet (MIRALAX, GLYCOLAX) 17 g ORAL DAILY PRN gentamicin 100 mg in NaCl (iso-osmotic) 100 mL 100 mg INTRAVENOUS MO-WE-FR doxycycline hyclate 100 mg cap(s) (VIBRAMYCIN) 100 mg ORAL q 12 H diphenhydrAMINE 25 mg (BENADRYL) 25 mg ORAL q 6 H PRN aspirin, enteric coated 81 mg tab(s) 81 mg ORAL DAILY metoprolol tartrate (short acting) 12.5 mg tab(s) (LOPRESSOR) 12.5 mg ORAL BID docusate sodium 100 mg cap(s) (COLACE) 100 mg ORAL BID tamsulosin ER 0.4 mg cap(s) (FLOMAX) 0.4 mg ORAL DAILY pantoprazole DR 40 mg tab(s) (PROTONIX) 40 mg ORAL BID levothyroxine 200 mcg tab(s) (SYNTHROID) 200 mcg ORAL BEFORE BREAKFAST DAILY atorvastatin 80 mg tab(s) (LIPITOR) 80 mg ORAL AT BEDTIME Labs CBC: Recent Labs 01/08/18 0513 01/07/18 0424 01/06/18 0407 01/05/18 0500 01/04/18 0431 01/03/18 0543 01/02/18 0527 WBC 3.83 3.80 4.48 4.28 5.14 4.56 3.58* HB 6.9* 7.2* 7.3* 7.8* 7.9* 8.1* 8.2* HCT 21.4* 22.4* 23.1* 24.3* 24.3* 25.2* 26.2* PLT 89* 95* 91* 79* 80* 76* 72* MCV 95.1 95.3 94.7 96.0 93.8 94.4 96.3 RDWCV 17.3* 17.6* 17.1* 17.2* 17.2* 17.2* 17.4* NEUTP 59.0 56.9 62.0 61.0 64.9 63.3 55.9 ABSNEUT 2.24 2.14 2.78 2.60 3.32 2.89 1.98 LYMPHP 31.6 32.6 27.2 29.2 25.5 25.9 33.8 MONOP 8.4 9.2 9.2 8.4 8.2 9.2 9.2 EODINP 0.5 0.8 0.9 0.7 0.6 0.9 0.8 BMP: Recent Labs 01/08/18 0513 01/07/18 0424 01/06/18 0407 01/05/18 0500 01/04/18 0431 01/03/18 0543 01/02/18 0527 GLUC 77 80 82 85 86 82 83 NA 132* 132* 133* 134* 132* 135* 136 K 4.4 4.4 4.6 4.4 4.7 4.5 4.2 CHLOR 97 98 96* 98 96* 97 99 CO2 26 25 24 27 26 28 30 ANION 9 9 13 9 10 10 7* BUN 28* 18 30* 22 37* 32* 23 CREAT 5.47* 4.43* 6.01* 4.81* 6.61* 5.58* 4.51* CHEM: Recent Labs 01/08/18 0513 01/07/18 0424 01/06/18 0407 01/05/18 0500 01/04/18 0431 01/03/18 0543 01/02/18 0527 ALB 2.1* -- -- -- -- -- -- TPROT 6.1* -- -- -- -- -- -- CA 7.8* 7.7* 7.8* 7.7* 7.6* 7.6* 7.6* MG 1.9 1.7 1.9 1.8 1.8 1.8 1.8 HEPATIC: Recent Labs 01/08/18512 ALKPHOS 139* ALT 30 AST 49* TBILI 0.6 COAG: Recent Labs 01/08/18512 APTT 33.5* INR 1.3 URINALYSIS:No results for input(s): PH, SPGR, UGLUC, UBILI, UKET, UHB, UPROT, UROBIL, UWBC, SSA in the last 168 hours. Invalid input(s): NITR CARDIAC: No results for input(s): CKTEST, CKMB, CKMBP, TROPT, PBNP in the last 168 hours. Imaging ECHO TRANSESOPHAGEAL 01/01/2018 - Exam indication: ?Endocarditis - The left ventricle is normal in size. Left ventricular systolic function is normal. EF = 60 ? 5% (visual est.) - The right ventricle is dilated. Right ventricular systolic function is mildly decreased. - The left atrial cavity is dilated. - Previous RUDY ligation. Small residual RUDY. - The right atrial cavity is dilated. - There is moderate (2+ - 3+) tricuspid valve regurgitation. 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 There is moderately severe (3+) aortic valve regurgitation due to paravalvular endocarditis. - There is no patent foramen ovale as detected by Doppler and saline contrast. - The Aortic valve prosthesis appears to be well seated with evidence of mild degeneration and without any obvious mobile echodensity on its leaflets. There is thickening of the Aorto-Mitral curtain and posterior LA wall which is suggestive of either hematoma or active infection. - There does not appear to be any transvalvular AI however there is a diastolic flow arising from the subvalvular region which may (Clip #47, #42) or may represent 3+ paravalvular regurgitation with a very eccentric jet. Consider Cardiac CT for better characterization and to r/o the presence of a fistula or abscess. - There is a a small mobile echodensity within the RA which may be attached either ?to the Venous catheter or the atrial portion of one of the pacemaker leads (1.2cm ?x 0.55 cm, Clip #28). This may represent vegetation or thrombus. - Exam was compared with the prior CC echocardiographic exam performed on 12/25/2017. Thrombus/Vegetation on pacemaker lead/venous catheter and possible paralvalvular leak. XR CHEST 1V FRONTAL 12/27/2017 Lines, Tubes, and Devices: ?Right IJ line mid SVC. Stable pacemaker. Lungs and Pleura: ?Bilateral effusions and overlying opacity similar to prior. No pneumothorax. Cardiomediastinal silhouette: ?Stable cardiac silhouette. ? CT ABD/PEL WO IVCON 12/27/2017 LARGE LEFT RECTUS SHEATH HEMATOMA, STABLE OR SLIGHTLY INCREASED IN SIZE SINCE 12/25/2017. 3.3 CM ROUND LOW-ATTENUATION LESION ADJACENT TO THE CELIAC AXIS WHICH MAY BE AN ENLARGED LYMPH NODE. CHOLELITHIASIS WITHOUT EVIDENCE CHOLECYSTITIS. HEPATIC STEATOSIS. ? US ABD RT UPPER QUADRANT AND SPLEEN 12/26/2017 CHOLELITHIASIS IN A DISTENDED GALLBLADDER WITHOUT OTHER EVIDENCE OF ACUTE CHOLECYSTITIS. DIFFUSE HEPATIC STEATOSIS. The craniocaudal length of the spleen is 10.1 cm, normal. There are no splenic lesions. ? CT ABD/PEL WO IVCON 12/25/2017 Moderate LEFT rectus sheath hematoma Diffuse hepatic steatosis. 2.6 cm low-attenuation structure abutting the celiac, possibly an enlarged lymph node. ?Further evaluation with contrast-enhanced study should be considered. Cholelithiasis without evidence of acute cholecystitis. ? LEG DVT JORGE LUIS BOBBY 12/25/2017 RIGHT SIDE - DEEP VEINS Negative for acute deep vein thrombosis. Thickened redmond, patent distal external iliac vein and common femoral vein. Only segments visualized of the posterior tibial veins and peroneal veins. Multiple enlarged lymph nodes noted in the right groin with the largest measuring aproximately: 1.4 x 1.5 x 0.9 cm. RIGHT SIDE - SUPERFICIAL VEINS Thickened redmond, patent great saphenous?vein. LEFT SIDE - DEEP VEINS Only segments visualized of the posterior tibial veins and peroneal veins. Multiple enlarged lymph nodes noted in the right groin with the largest measuring aproximately: 2.3 x 1.8 x 0.7 cm. 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 ? XR CHEST 1V FRONTAL Lines, tubes, and devices: ?The patient is status post median sternotomy and left 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 clip placement. ?Left pacemaker device is in place with leads in the right atrium and the right ventricle. ?Surgical clips overlie the upper abdomen. Lungs and pleura: ?Patchy reticular opacities are noted, likely related to pulmonary edema. Hazy opacity overlying the right lung base is likely related to small right pleural effusion and adjacent atelectasis/consolidation. ?Also noted is trace left pleural effusion. ?A vertically oriented lucency overlying the right lower chest is favored to be a skinfold. Cardiomediastinal silhouette: ?Cardiac silhouette is enlarged with pulmonary venous congestion. ? ECHO 12/25/2017 - Technically difficult exam due to suboptimal positioning. - Exam indication: Initial evaluation of Heart Failure - The left ventricle is moderately dilated. There is moderate concentric left ventricular hypertrophy. Left ventricular systolic function is normal. EF = 66 ? 5% (2D biplane) - The right ventricle is normal in size. Right ventricular systolic function is normal. - The left atrial cavity is severely dilated. - The right atrial cavity is dilated. - There is moderate (2+) mitral valve regurgitation. Thickened mitral valve leaflets. - There is moderate (2+ - 3+) tricuspid valve regurgitation. 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 There is moderately severe (3+) aortic valve regurgitation. The peak gradient is 39 mmHg, the mean gradient is 17 mmHg and the dimensionless valve index is 0.53. There is both valvular and paravalvular AI. There is flow reversal in the descending aorta. - Estimated right ventricular systolic pressure is?likely underestimated due to a weak or incomplete tricuspid regurgitation signal and is, at least, 70 mmHg consistent with moderately severe pulmonary hypertension. Estimated right atrial pressure is 15 mmHg. - The patient has not had a prior CC echocardiographic exam for comparison. Assessment and Plan Mr. 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 MICU transfer to initiate dialysis secondary to volume overload. Patient is now anuric IRINA-D. 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 ? 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 (no brain MRI performed to date, unable to be performed due to ESRD), and that IRINA is immunologic phenomena secondary to IE - By Zabala criteria, possible if no mycotic aneurysm, definite if mycotic aneurysm (or if +Bartonella serology) - Afebrile, HDS, negative blood cultures, no leukocytosis - 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 Cuauhtemoc Parker assigned - cardiac CT, brain imaging (recent stroke), PFT/DLCO (d/t smoking history) and will discuss if a repeat cardiac cath is necessary as a part of the evaluation - consider tx to Cardiology floor #Pancytopenia #Hemolytic anemia Presented with fatigue, shortness of breath History of UGIB secondary to Min-en-Y (most recently 2015), OSH EGD/C-scope/tagged RBC scan showed no evidence of bleed Requiring pRBC transfusion x 3 during this hospitalization Concerns for hemolytic process, not Petar driven--peripheral smear showed evidence of scant schistocytes, yojana cells, rare spherocytes, thrombocytopenia. ?Elevated Igs, will try to continue to workup lymphoproliferative process as potential etiology Plan: - Transfuse Hgb < 7, Plts < 50 ?#Atrial fibrillation S/p PPM for sick sinus syndrome Metoprolol 12.5mg BID home dose held for acute anemia, which has now stabilized HR in 80s-low 100s, HDS Plan: currently off AC due to rectus sheath hematoma -Continue metoprolol 12.5mg BID -Tele ? #Rectus sheath hematoma Last imaging 12/27/17 showed 20 x 8.7 x 6.7 cm left rectus sheath hematoma, unclear etiology Plan: -Daily CBC -hold off AC for now, unlikely he would resume back Eliquis due to kidney dysfunction #Lymphadenopathy 3.3 x 2.9cm ?LN in celiac region, concern by Hematology for possible lymphoproliferative disorder Plan: -Hold on LN biopsies at this point -Appreciate ID recs. Follow up bartonella testing #IRINA-D P/w fatigue, SOB, SCr 4.1 (b/l 1.0 in 10/2017) C/b volume overload, NAGMA, hyperphosphatemia Unclear etiology, per OSH renal biopsy report, C3 and IgM mesangium deposits, one of 28 glomeruli had crescent (?TMA), low C3, p-ANCA+ but MPO unremarkable NTDC placed 12/27/17 for volume overload, improving Plan:? - continue IHD - continue sodium bicarbonate 650mg TID - daily BMP - f/u Nephrology recs ? #CAD - continue atorvastatin 80mg qHS ? #Mild protein-calorie malnutrition - nutritional support ? #Hypothyroidism -Continue levothyroxine 200mcg qAM ? 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 Diet: Renal DVT PPx: IPCs GI PPx: Pantoprazole 40mg qDay Fran Garner MD, MBA MS Internal Medicine [address] [address] [email or web address] Pager #: [phone] Note: These recommendations are not final until staffed by provider For questions regarding this patient, please page [phone] during 7 a.m. - 5 p.m. After 5 p.m., please page on-call Goldsmith pager [phone] for concerns. [facility] STAFF PHYSICIAN NOTE OF PERSONAL INVOLVEMENT IN CARE I have reviewed the progress note obtained and documented by the resident and I personally participated in the hernandez components. I have discussed the case and management of the patient's care. The following comments revise or confirm relevant hernandez components of their note. 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 ? He also had a bone marrow biopsy to evaluate pancytopenia to rule out myeloma process. ?This is being reviewed by our pathologists now (requested tissue block) ? Hospital course complicated by need for red cell and platelet transfusion as well as spontaneous rectus sheath hematoma,?required CVVHD and then hemodialysis for hypoxemic respiratory failure and volume overload requiring MICU stay. ? 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 paravalvular leak with ? 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 ? Patient seen in HD unit, no new complaints, awaiting surgery. 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 Berry, pending preop work up. ? Cintia Wiley MD (Nieves Souza) [facility] Medicine Department Pager [phone] 01/08/2018 5:07 PM PROTIME Collected: 01/08/2018 Status: F Source: PLANO 5:13 AM [facility] REPOSITORY TYPE CODE TESTS RESULT OUT OF RANGE REFERENCE UNITS LAB PSEC 9.7-13.0 sec High PT Sec 13.1 LAB INR 0.9-1.3 PT INR 1.3 Result Comment: Vitamin K Antagonist (VKA) Therapeutic Range: INR 2 to 3 (Target INR of 2.5) Note: For patients treated with VKA drugs, such as warfarin, the [place] [employer] 2012 Guideline recommends a therapeutic INR range of 2 to 3 (target INR of 2.5). This recommendation includes high-risk patients with antiphospholipid syndrome with previous arterial or venous thromboembolism, current-generation mechanical or bioprosthetic aortic heart valve replacement. Note: Patients with mechanical aortic valve replacement and additional risk factors for thromboembolic events (atrial fibrillation, previous thromboembolism, LV dysfunction, hypercoagulable conditions) or an older generation mechanical AVR (i.e., ball in-Cage) or any mechanical MVR should have a INR therapeutic range of 2.5 to 3.5 (target INR of 3). Milo GH, et al. Chest 2012, 141:7S-47S Mateo RA, et al. [facility] 2017, 70: 252-289 Performed By: #### PT, PTT, CMP, MG1, PHOS, CBCDIF, GENTRA #### [facility] [employer] [address] [place], [place] [address] APTT Collected: 01/08/2018 Status: F Source: PLANO 5:13 AM [facility] REPOSITORY TYPE CODE TESTS RESULT OUT OF RANGE REFERENCE UNITS LAB APTT 23.0-32.4 sec High APTT 33.5 Result Comment: Unfractionated Heparin Therapeutic Ranges: Standard Heparin Nomogram: 53 to 78 seconds (anti-Xa level of 0.3 to 0.7 U/ml) Low Dose/ACS Nomogram: 49 to 67 seconds (anti-Xa level of 0.2 to 0.5 U/ml) Stroke Treatment Nomogram: 49 to 67 seconds (anti-Xa level of 0.2 to 0.5 U/ml) Note: The APTT therapeutic range has been determined for the current lot of laboratory APTT reagent in use throughout the [facility]. Performed By: #### PT, PTT, CMP, MG1, PHOS, CBCDIF, GENTRA #### [facility] [employer] [address] [place], [place] [address] COMP METABOLIC PANEL Collected: 01/08/2018 Status: F Source: [place] 5:13 AM [facility] REPOSITORY TYPE CODE TESTS RESULT OUT OF REFERENCE UNITS RANGE LAB TP 6.3-8.0 g/dL Low Protein, Total 6.1 LAB ALB 3.9-4.9 g/dL Low Albumin 2.1 LAB CA 8.5-10.2 mg/dL Low Calcium, Total 7.8 LAB TBIL 0.2-1.3 mg/dL Bilirubin, Total 0.6 LAB ALKP 38-113 U/L Alkaline High Phosphatase 139 LAB AST 14-40 U/L AST High 49 LAB GLU 74-99 mg/dL Glucose 77 Result Comment: The [place] [employer] (ADA) provides guidance for cutoff values for fasting glucose and random glucose. The ADA defines fasting as no caloric intake for at least 8 hours. Fas ting plasma glucose results between 100 to 125 mg/dL indicate increased risk for diabetes (prediabetes). Fasting plasma glucose results greater than or equal to 126 mg/dL meet the criteria for diagnosis of diabetes. In the absence of unequivocal hyperglycemia, results should be confirmed by repeat testing. In a patient with classic symptoms of hyperglycemia or hyperglycemic crisis, random plasma glucose results greater than or equal to 200 mg/dL meet the criteria for diagnosis of diabetes. Reference: Standards of [facility] 2016, [employer]. Diabetes Care. 2016.39(Suppl 1). LAB BUN 9-24 mg/dL BUN High 28 LAB CRET 0.73-1.22 mg/dL Creatinine High 5.47 LAB NA 136-144 mmol/L Low Sodium 132 LAB K 3.7-5.1 mmol/L Potassium 4.4 LAB CL 97-105 mmol/L Chloride 97 LAB CO2 22-30 mmol/L CO2 26 LAB AGAP 9-18 mmol/L Anion Gap 9 LAB ALT 10-54 U/L ALT 30 LAB GFRAA eGFR- Amer. 13 LAB GFRNAA . eGFR-All Other Races 11 Result Comment: eGFR (Estimated GFR) Units of measure: mL/min/1.73 meters squared eGFR is derived from the reexpressed MDRD Study equation using the following parameters: serum creatinine, age, gender and race. The creatinine assay has been calibrated to be traceable to IDMS. An eGFR <60 mL/min/1.73m2 for >3 months is consistent with chronic kidney disease. Refer to KDOQI guidelines for clinical interpretation. In patients with unstable renal function, e.g. those with acute kidney injury, the eGFR may not accurately reflect actual GFR. Performed By: #### PT, PTT, CMP, MG1, PHOS, CBCDIF, GENTRA #### [facility] [address] [address] MAGNESIUM Collected: 01/08/2018 Status: F Source: PLANO 5:13 AM [facility] REPOSITORY TYPE CODE TESTS RESULT OUT OF REFERENCE UNITS RANGE LAB MG 1.7-2.3 mg/dL Magnesium 1.9 Performed By: #### PT, PTT, CMP, MG1, PHOS, CBCDIF, GENTRA #### [facility] [address] [place] [address] PHOSPHORUS Collected: 01/08/2018 Status: F Source: PLANO 5:13 AM [facility] REPOSITORY TYPE CODE TESTS RESULT OUT OF REFERENCE UNITS RANGE LAB PHOS 2.7-4.8 mg/dL Phosphorus 3.7 Performed By: #### PT, PTT, CMP, MG1, PHOS, CBCDIF, GENTRA #### [place] [address] CBC AND DIFFERENTIAL Collected: 01/08/2018 Status: F Source: PLANO 5:13 AM [facility] REPOSITORY TYPE CODE TESTS RESULT OUT OF REFERENCE UNITS RANGE LAB WBC 3.70-11.00 k/uL WBC 3.83 LAB RBC 4.20-6.00 m/uL Low RBC 2.25 LAB HGB 13.0-17.0 g/dL Low Hemoglobin 6.9 LAB HCT 39.0-51.0 % Low Hematocrit 21.4 LAB MCV 80.0-100.0 fL MCV 95.1 LAB MCH 26.0-34.0 pG MCH 30.7 LAB MCHC 30.5-36.0 g/dL MCHC 32.2 LAB RDWCV 11.5-15.0 % RDW-CV High 17.3 LAB PLTCT 150-400 k/uL Low Platelet Count 89 Result Comment: No clot detected. LAB MPV 9.0-12.7 fL MPV 10.3 LAB ANEUT % Neut% 59.0 LAB AANEUT 1.45-7.50 k/uL Abs Neut 2.24 LAB ALYMP % Lymph% 31.6 LAB AALYMP 1.00-4.00 k/uL Abs Lymph 1.21 LAB AMONO % Pope% 8.4 LAB AAMONO <0.87 k/uL Abs Pope 0.32 LAB AEOS % Eosin% 0.5 LAB AAEOS <0.46 k/uL Abs Eosin <0.03 LAB ABASO % Baso% 0.5 LAB AABASO <0.11 k/uL Abs Baso <0.03 LAB AUNRBC 0 /100 WBC NRBCs 0.0 LAB ABNRBC <0.01 k/uL Absolute nRBC <0.01 LAB DTYP DTYPE Auto Diff Performed By: #### PT, PTT, CMP, MG1, PHOS, CBCDIF, GENTRA #### [facility] [employer] [address] [place], [place] [address] GENTAMICIN, RANDOM Collected: 01/08/2018 Status: F Source: PLANO 5:13 AM [facility] REPOSITORY TYPE CODE TESTS RESULT OUT OF REFERENCE UNITS RANGE LAB GENTRA 0.0-10.0 ug/mL 2.4 Gentamicin, Random Result Comment: Reference ranges and high/low indicator flags are provided as general guidelines only. The treating physician must determine appropriate target levels/dosing based on the specific clinical situation. Performed By: #### PT, PTT, CMP, MG1, PHOS, CBCDIF, GENTRA #### [facility] [employer] [address] [place], [place] [address] TYPE AND SCREEN Collected: 01/08/2018 Status: F Source: PLANO 5:13 AM [facility] REPOSITORY TYPE CODE TESTS RESULT OUT OF REFERENCE UNITS RANGE LAB %ABR A ABO/RH(D) POSITIVE LAB % Antibody NEG Screen Performed By: #### TSCR #### [facility] [employer] [address] [place], [place] [address] CT CHEST CARDIAC WO Observed: 01/07/2018 Status: F Source: PLANO IVCON 8:42 PM [facility] REPOSITORY * * *Final Report* * * DATE OF EXAM: Jan 07 2018 8:42PM [facility] 2056 - CT CHEST CARDIAC WO IVCON / PROCEDURE REASON: Endocarditis, infective suspected * * * * Physician Interpretation * * * * CT Aorta chest - images were acquired and reviewed earlier, and subsequently brought to my attention for final dictation Direct Image Comparison: CTA abdomen 01/06/2018 HISTORY: 62 years Male patient recently admitted with 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 There is need to define thoracic and aortic anatomy. TECHNIQUE: In-patient scan SCANNER: Multi-detector CT technology (Siemens Definition + 128-slice scanner) PROTOCOL: Spiral imaging of the chest with retrospective gating and 3 mm slice reconstruction in diastolic phase without administration of contrast material. Scan Range: thoracic inlet to the diaphragm Tube Voltage: [address] Dose-Length Product (DLP): 1219 mGy*cm CT Dose Reduction Employed: mAs-kVp adjusted based on patient size-age Radiation Shielding Employed: Yes CONTRAST: None Scan acquisition: uncomplicated For optimization of anatomic evaluation, off-line postprocessing was performed on a dedicated workstation by the interpreting physician. Additional lung CAD STUDY LIMITATIONS: gating artifact RESULT: LINES: large bore IJ central venous line with tip in the superior vena cava PPM device over the left anterior chest wall, with transvenous leads extending to the RA and RV CHEST: Chest wall anatomy: prior median sternotomy with sternal wires in place, with malunion of the lower sternum with 2 mm gap - changes most consistent with rib fractures of the lateral right chest wall Lungs: small right and trivial left pleural effusions with adjacent atelectasis, emphysematous changes upper lobes Non-calcified up to 6 mm nodules right middle lung lobe and left lingula (Image # 33, [id number], 29) Incidental Finding: Follow- up for this incidentally detected lung nodule chest CT exam is recommended in 6-12 months. Mediastinum: mediastinal lymph nodes, which are at the upper size of normal Pericardium: unremarkable Central pulmonary artery: Dilated, measuring 4 cm, assessment is limited due to limited contrast enhancement. Clinical correlation is recommended CARDIAC CHAMBERS: assessment is limited in the non-contrast enhanced study Left ventricle: appears dilated, which could reflect size or LVH Right ventricle: appears prominent Left atrium: prominent RUDY: surgical changes c/w clip ligation Right atrium: prominent CENTRAL VENOUS and PULMONARY VENOUS RETURN: normal Coronary Sinus: normal dimensions MITRAL VALVE: trivial punctate posterior mitral annular calcification CORONARY ANATOMY: Normal origin of the coronary arteries Calcified atherosclerotic changes of the coronary arteries, precluding precise assessment with CT. - [place] TIFFANY and AMANDA are normal size vessels without evidence of calcified atherosclerotic changes. AORTA AORTIC VALVE: AVR with bioprosthetic valve; valve ring 2.5 cm; moderate diffuse leaflet calcification AORTIC ROOT: Ectasia; Diameter: 4.3 cm - assessment is limited in that noncontrast study Sinotubular Junction: maintained; mild calcification/surgical changes ASCENDING THORACIC AORTA: Ectasia; Diameter: 4.4 cm; mild surgical changes Aortic Arch: normal size; Maximum Diameter: 3.5 cm ; minimal calcification Arch Branch Vessels: normal size; assessment for patency is not possible in the non-contrast enhanced study; minimal proximal calcification; common origin of the right innominate artery and left carotid artery Descending Thoracic Aorta: normal size; mild calcification; Relationship OF CARDIOVASCULAR STRUCTURES TO STERNUM: The left brachio-cephalic vein lies 6 mm behind the manubrium sternum. The RV lies immediately behind the lower sternum. AORTIC CALCIFICATION: see above. Mild surgical changes of the ascending thoracic aorta AORTIC ARCH BRANCH VESSELS: see above. Mid and distal subclavian arteries: normal size vessels without evidence of calcification Assessment of patency is not possible in a non-contrast study IMPRESSION: AVR with BIOPROSTHETIC VALVE; valve ring 2.5 cm - moderate diffuse leaflet calcification AORTIC ROOT: ECTASIA; Diameter: 4.3 cm - assessment is limited in that noncontrast study ASCENDING THORACIC AORTA: ECTASIA; Diameter: 4.4 cm; mild surgical changes LEFT VENTRICLE: APPEARS DILATED, which could reflect size or LVH Right ventricle: appears prominent Calcified atherosclerotic changes of the CORONARY ARTERIES, precluding precise assessment with CT. CENTRAL PULMONARY ARTERY: DILATED, measuring 4 cm, assessment is limited due to limited contrast enhancement. Clinical correlation is recommended Lungs: small right and trivial left pleural effusions with adjacent atelectasis, emphysematous changes Non-calcified up to 6 mm nodules right middle lung lobe and left lingula (Image # [id number], [id number], 29) Incidental Finding: FOLLOW- UP with DETECTED LUNG NODULE CHEST CT EXAM IS RECOMMENDED IN 6-12 MONTHS. Hernandez Images reconstructed, saved, and available in [facility], '[facility]' COMMUNICATION: Communicated with: Isa Cao CNP on 01/08/2018 at 07:30. Loss Prevention Operations Manager: IDA Transcribe Date/Time: Jan 08 2018 6:49A Dictated by : JOIE TRAORE MD This examination was interpreted and the report reviewed and electronically signed by: JOIE TRAORE MD on Jan 08 2018 7:25AM EST [id number] CT BRAIN WO IVCON Observed: 01/07/2018 Status: F Source: PLANO 8:37 PM [facility] REPOSITORY * * *Final Report* * * DATE OF EXAM: Jan 07 2018 8:37PM [facility] 0504 - CT BRAIN WO IVCON / PROCEDURE REASON: Stroke, follow up * * * * Physician Interpretation * * * * EXAMINATION: CT BRAIN WO IVCON CLINICAL HISTORY: Infarct symptoms. TECHNIQUE: Serial axial images without IV contrast were obtained from the vertex to the foramen magnum. MQ: [id number] CT Dose-Length Product (DLP): 776 mGy*cm CT Dose Reduction Employed: No dose reduction techniques were required COMPARISON: None. RESULT: Post-operative change: None. Acute change: No evidence of an acute infarct or other acute parenchymal process. Hemorrhage: No evidence of acute intracranial hemorrhage. Mass Lesion / Mass Effect: There is no evidence of an intracranial mass or extraaxial fluid collection. No significant mass effect. Chronic change: Minimal heterogeneity within the cerebral white matter likely minimal chronic microvascular ischemic change. Parenchyma: Minimal age-appropriate brain volume loss. Ventricles: The ventricles are within normal limits of size and configuration for age. Paranasal sinuses and skull base: Paranasal sinus chambers, mastoid air cells and middle ear cavities are clear. Debris within both external auditory canals likely cerumen. The skull base and imaged soft tissues are unremarkable. IMPRESSION: Minimal chronic microvascular ischemic change. No acute brain findings on this exam. Loss Prevention Operations Manager: PSCB Transcribe Date/Time: Jan 07 2018 8:40P Dictated by : MARY FENTON MD This examination was interpreted and the report reviewed and electronically signed by: MARY FENTON MD on Jan 07 2018 8:44PM EST [id number] PROGRESS Observed: 01/07/2018 Status: COMPLETED Source: PLANO 8:34 PM [facility] REPOSITORY HNO ID: [id number] Author: LIZZ Ascencio (Ct) Service: Radiology Author Type: Clinical Spray Rig Operator Type: Progress Notes Filed: 01/07/2018 8:34 PM Note Text: Radiology Service Progress Note PATIENT NAME: Frank Rivera DATE OF SERVICE: January 07, 2018 TIME: 8:34 PM PATIENT IDENTITY VERIFICATION COMPLETED USING TWO (2) METHODS: Patient confirmed name verbally and ID band matches.. PATIENT GENDER DATA: Male PATIENT RELEVANT IMPLANT DATA REVIEWED: Yes RADIOLOGY DEPARTMENT: CT; Exam(s) Completed: Brain and Cardiac PERIPHERAL IV DATA: Not applicable SIGNED BY: lizz ascencio January 07, 2018 8:34 PM CONSULT PROG Observed: 01/07/2018 Status: COMPLETED Source: PLANO 5:05 PM [facility] REPOSITORY HNO ID: [id number] Author: Janae Cao Service: Cardiac Surgery Author Type: Nurse Practitioner Type: Consult Progress Note Filed: 01/07/2018 5:16 PM Note Text: [facility] CONSULT PROGRESS NOTE Frank Rivera [id number] CONSULTING SERVICE: Cardiothoracic Surgery PLAN: Dr. Parker has reviewed the case and recommends to proceed with cardiac CT without contrast, obtain old LHC from 03/2017 from [facility], vein mapping and PFT/DLCO. SUBJECTIVE: INTERVAL HISTORY: 62 yoM with PVE c/b ARF and Bartonella Amato bacteremia. OBJECTIVE: MEDICATIONS: Current hospital medications: acetaminophen 650 mg tab(s) (TYLENOL) 650 mg ORAL q 4 H PRN sodium chloride 0.65 % 2 [place] (AYR, OCEAN) 2 [place] EACH NOSTRIL TID PRN calcium carbonate 1,000 mg chewable tab(s) (TUMS) 1,000 mg ORAL/FEEDING TUBE 2 times per day yjyffrkw-peia-ccgww acid chewable tablet (CENTRUM) 1 tablet ORAL DAILY cholecalciferol 3,000 Units tab(s) (VITAMIN D3) 3,000 Units ORAL DAILY cyanocobalamin 500 mcg tab(s) (VITAMIN B-12) 500 mcg ORAL DAILY thiamine 100 mg tab(s) (VITAMIN B1) 100 mg ORAL DAILY senna-docusate 8.6-50 mg 1 tablet (SENNA-S) 1 tablet ORAL/FEEDING TUBE BID PRN polyethylene glycol 3350 17 g packet (MIRALAX, GLYCOLAX) 17 g ORAL DAILY PRN gentamicin 100 mg in NaCl (iso-osmotic) 100 mL 100 mg INTRAVENOUS MO-WE-FR doxycycline hyclate 100 mg cap(s) (VIBRAMYCIN) 100 mg ORAL q 12 H diphenhydrAMINE 25 mg (BENADRYL) 25 mg ORAL q 6 H PRN aspirin, enteric coated 81 mg tab(s) 81 mg ORAL DAILY metoprolol tartrate (short acting) 12.5 mg tab(s) (LOPRESSOR) 12.5 mg ORAL BID docusate sodium 100 mg cap(s) (COLACE) 100 mg ORAL BID tamsulosin ER 0.4 mg cap(s) (FLOMAX) 0.4 mg ORAL DAILY pantoprazole DR 40 mg tab(s) (PROTONIX) 40 mg ORAL BID levothyroxine 200 mcg tab(s) (SYNTHROID) 200 mcg ORAL BEFORE BREAKFAST DAILY atorvastatin 80 mg tab(s) (LIPITOR) 80 mg ORAL AT BEDTIME PHYSICAL EXAM: 01/07/18 0243 01/07/18 0607 01/07/18 0900 01/07/18 1338 BP: 113/68 142/63 113/58 110/62 Pulse: 62 (!) 58 71 61 Resp: Temp: 36.8 ?C (98.3 ?F) 36.9 ?C (98.4 ?F) 36.6 ?C (97.8 ?F) 36.3 ?C (97.4 ?F) TempSrc: Oral Oral Oral Oral SpO2: 95% 99% 94% 98% Weight: Height: PHYSICAL EXAMINATION General: Alert and oriented, no distress, pleasant and cooperative. Heart: Regular, normal S1 and S2, DEM Lungs: Decreased bilaterally Abdomen: Benign Extremities: Feet/ankles +1 edema, posterior tibial pulses full and symmetrical Intake/Output Summary (Last 24 hours) at 01/07/18 1705 Last data filed at 01/07/18 1400 Gross per 24 hour Intake 1330 ml Output 0 ml Net 1330 ml DATA: Laboratory: Recent Labs 01/07/18 0424 01/06/18 0407 01/05/18 0500 WBC 3.80 4.48 4.28 HB 7.2* 7.3* 7.8* HCT 22.4* 23.1* 24.3* PLT 95* 91* 79* NA 132* 133* 134* K 4.4 4.6 4.4 CHLOR 98 96* 98 CO2 25 24 27 BUN 18 30* 22 CREAT 4.43* 6.01* 4.81* GLUC 80 82 85 SIGNATURE: Janae Cao APRN.DIRECTOR OF INDUSTRIAL RELATIONS PAGER: [phone] DATE of SERVICE: 01/07/2018 TIME of SERVICE: 5:10 PM PLAN OF CARE Observed: 01/07/2018 Status: COMPLETED Source: PLANO 4:14 PM [facility] REPOSITORY HNO ID: [id number] Author: Jt Hernandez Service: Cardiovascular Medicine Author Type: Physician Type: Plan of Care Filed: 01/07/2018 4:46 PM Note Text: Reviewed CHANDRAKANT images from [facility] Compared to prior, he seems to have slight increase in thickening of aortic root with decreased lucency. Paravalvular leak is new from prior Brief Plan Above findings, though not diagnostic, are suggestive of endocarditis and surgical evaluation is ideal - agree with CTS consult - will get in touch with EP for management of his pacemaker management in the setting of endocarditis - antibiotic management per ID and primary team Will continue to follow Mary Mackey MD PGY2, Internal Medicine [facility] Pager# [phone] [facility]# [phone] 01/07/18 4:22 PM [facility] STAFF PHYSICIAN NOTE OF PERSONAL INVOLVEMENT IN CARE I have reviewed the progress note obtained and documented by the resident and I personally participated in the hernandez components. I have discussed the case and management of the patient's care. The following comments revise or confirm relevant hernandez components of the note. IMPRESSION: On side by side review of the CHANDRAKANT performed at [facility] compared to the one done here I feel there is increased thickening of the posterior wall of the aorta ; he also has a significant paravalvular leak-I feel that these findings are consistent with endocarditis PLAN: Continue evaluation for redo open heart surgery Jt Hernandez MD THERAPY NT Observed: 01/07/2018 Status: COMPLETED Source: PLANO 2:16 PM [facility] REPOSITORY HNO ID: [id number] Author: Nikole Baca Service: Occupational Therapy Author Type: Occupational Therapist Type: Therapy (PT/OT/Speech/Resp) Filed: 01/07/2018 2:17 PM Note Text: OCCUPATIONAL THERAPY MISSED VISIT SERVICE DATE: 01/07/2018 SERVICE TIME: 1416 to 1416 ROOM: H[facility] Attempted Treatment. Patient not seen due to Declined. Sitting up in bedside chair visiting with family. Reports waiting to speak with cardiology team. Family reports planning to take patient to [facility] later. Will follow up her established POC. SIGNATURE: GERRI Campos/Jenni PATIENT NAME: Frank Rivera DATE: January 07, 2018 TIME: 2:16 PM ECG COMPLETE W Observed: 01/07/2018 Status: F Source: PLANO INTERPRETATION 11:40 AM [facility] REPOSITORY NAME : FRANK RIVERA PID : [id number] : 1955 Gender : Male Race : ORD : [id number] Procedure Date : Jan 07 2018 11:40:37 Edit Date : Jan 08 2018 09:17:26 Diagnosis:VENTRICULAR-PACED RHYTHM WITH SR ABNORMAL ECG Confirmed by BING WAHL M.D. ([id number]) on 01/08/2018 9:17:21 AM Ventricular Rate : 61 BPM Atrial Rate : 60 BPM QRS Duration : 174 ms Q-T Interval : 504 ms QTC Calculation(Bezet) : 507 ms P [place] : -1 degrees R [place] : -86 degrees T [place] : 76 degrees Test Reason : C3 NEPHROPATHY Location : 84 : [facility] Overread By : BING WAHL M.D. Edited By : BING WAHL M.D. Referred By : , Acquired by : CRICKET PHILLIPS CONSULT PROG Observed: 01/07/2018 Status: COMPLETED Source: PLANO 10:58 AM [facility] REPOSITORY O ID: [id number] Author: Vincent Coe Service: Nephrology Author Type: Physician Type: Consult Progress Note Filed: 01/07/2018 11:46 AM Note Text: CONSULT PROGRESS NOTE NEPHROLOGY SERVICE SERVICE DATE: 01/07/2018 SERVICE TIME: 11:43 AM Subjective INTERVAL HISTORY: Patient still with lower extremity swelling. Patient seen during HD. Still edematous with no acute complaints. UF 3000 liters MEDICATIONS: Current Medications Reviewed Objective PHYSICAL EXAM: BP 113/58 Pulse 71 Temp 36.6 ?C (97.8 ?F) (Oral) Resp 18 Ht 193 cm (6' 4) Wt 110.8 kg (244 lb 3.2 oz) SpO2 94% BMI 29.72 kg/m? Intake/Output Summary (Last 24 hours) at 01/07/18 1059 Last data filed at 01/07/18 0800 Gross per 24 hour Intake 1080 ml Output 3000 ml Net -1920 ml Constitutional: No acute distress, Responsive, Normal habitus and Well-nourished Neck: Trachea midline Cardiovascular: Edema present: bilateral lower extremities Respiratory: Normal respiratory effort. Lungs clear bilaterally. Abdomen: Soft, non-tender, non-distended. Normal bowel sounds. No hepatosplenomegaly. Psychiatric: Alert and oriented x self, place, time, and setting Normal mood/affect Vascular Access: Hemodialysis catheter location: Right Nontunneled internal jugular. Exit site demonstrates: normal findings DATA: Diagnostic tests reviewed for today's visit: Most recent labs and imaging results. Recent Labs 01/07/184 01/06/18 0407 01/05/18 0500 01/04/18 0431 01/03/18 0543 NA 132* 133* 134* 132* 135* K 4.4 4.6 4.4 4.7 4.5 CHLOR 98 96* 98 96* 97 CO2 25 24 27 26 28 BUN 18 30* 22 37* 32* CREAT 4.43* 6.01* 4.81* 6.61* 5.58* GLUC 80 82 85 86 82 ANION 9 13 9 10 10 CA 7.7* 7.8* 7.7* 7.6* 7.6* P 3.2 3.5 3.2 3.8 3.6 MG 1.7 1.9 1.8 1.8 1.8 Recent Labs 01/07/18 0424 01/06/187 01/05/18 0500 WBC 3.80 4.48 4.28 HB 7.2* 7.3* 7.8* HCT 22.4* 23.1* 24.3* PLT 95* 91* 79* Assessment/Plan 62 year old male with a PMH including A-fibb, s/p AVR, history of CVA, Fe deficiency anemia and hemolytic anemia presented to [facility] as a transfer from OSH on 12/24. Initial presentation to OSH was due to suspected GI bleed. Patient had low Hg however no diagnostic findings on Colonoscopy, EGD or tagged RBC scan. Patient was transferred to [facility] upon worsening of renal function. 1. 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 -Patient also ANCA +, MPO +, dsDNA + -Bartonella henselae IgM positive at 1:64 indicating acute Bartonella henselae infection (Noted) -Bartonella amato IgM is negative, however IgG is positive indicating past bartonella amato infection (Noted) 2. Electrolytes -Hyponatremia 3. Normocytic Anemia -Likely multifactorial cause including blood loss, hemolysis as well as acute renal failure -No concerning finding on BM bx. Hematology has signed off 5. Volume Overload. Edema likely also exacerbated by hypoalbuminemia PLAN 1. Continue current MWF IHD. Patient still anuric 2. Herring has been removed. Can do bladder scan q48 hours since patient has BPH 3. Continue daily renal function panal 4. Renally dose medications 5. Treat underlying infection. Renal function may or may not return despite treating the now known underlying infectious agent Consent for HOSPICE ART THERAPIST: HOSPICE ART THERAPIST initiation date: 12/27/2017 Consent obtained and in EMR. This note has not been reviewed by attending physician. Plan not finalized until addendum is placed SIGNATURE: Yue Vargas MD PATIENT NAME: Frank Rivera DATE: January 04, 2018 TIME: 12:23 PM PAGER: [phone] Staff note: I have interviewed and examined this patient and agree with the resident's/fellows/Physician castings trimmer findings, impressions and plan. Plan for IHD tomorrow and Thursday for volume removal. Vincent Coe DO CONSULT PROG Observed: 01/07/2018 Status: COMPLETED Source: PLANO 9:46 AM [facility] REPOSITORY HNO ID: [id number] Author: Mary Santos (Pharmacist) Service: Pharmacy Author Type: Pharmacist Type: Consult Progress Note Filed: 01/07/2018 9:47 AM Note Text: PHARMACY VANCOMYCIN DOSING NOTE Patient Name: Frank Rivera Admission Date: 12/24/2017 Date of Consult: 01/07/2018 Time of Consult: 9:46 AM Indication: Endocarditis Goal Range: 15-25 mcg/mL 1. The primary service has discontinued vancomycin therapy. Pharmacy vancomycin dosing service will sign off. Thank you for allowing us to participate in this patient's care. Please contact pharmacy if questions. CATHERINE LEE PROGRESS Observed: 01/07/2018 Status: COMPLETED Source: PLANO 9:36 AM [facility] REPOSITORY HNO ID: [id number] Author: Gee Ruiz Service: Infectious Disease Author Type: Physician Type: Progress Notes Filed: 01/07/2018 9:44 PM Note Text: PROGRESS NOTE INFECTIOUS DISEASE SERVICE DATE: 01/07/2018 SERVICE TIME: 09:30 Subjective Interval Events: Patient is stable. He denies any CP, SOB. His Bartonella serologies came back positive. Plan is to get HD tomorrow. ROS: 6 systems were reviewed and negative apart from the above. Medications: Current hospital medications: acetaminophen 650 mg tab(s) (TYLENOL) 650 mg ORAL q 4 H PRN sodium chloride 0.65 % 2 [place] (AYR, OCEAN) 2 [place] EACH NOSTRIL TID PRN calcium carbonate 1,000 mg chewable tab(s) (TUMS) 1,000 mg ORAL/FEEDING TUBE 2 times per day ccqvcvtf-sisa-snvjp acid chewable tablet (CENTRUM) 1 tablet ORAL DAILY cholecalciferol 3,000 Units tab(s) (VITAMIN D3) 3,000 Units ORAL DAILY cyanocobalamin 500 mcg tab(s) (VITAMIN B-12) 500 mcg ORAL DAILY thiamine 100 mg tab(s) (VITAMIN B1) 100 mg ORAL DAILY senna-docusate 8.6-50 mg 1 tablet (SENNA-S) 1 tablet ORAL/FEEDING TUBE BID PRN polyethylene glycol 3350 17 g packet (MIRALAX, GLYCOLAX) 17 g ORAL DAILY PRN gentamicin 100 mg in NaCl (iso-osmotic) 100 mL 100 mg INTRAVENOUS MO-WE-FR doxycycline hyclate 100 mg cap(s) (VIBRAMYCIN) 100 mg ORAL q 12 H diphenhydrAMINE 25 mg (BENADRYL) 25 mg ORAL q 6 H PRN aspirin, enteric coated 81 mg tab(s) 81 mg ORAL DAILY metoprolol tartrate (short acting) 12.5 mg tab(s) (LOPRESSOR) 12.5 mg ORAL BID docusate sodium 100 mg cap(s) (COLACE) 100 mg ORAL BID tamsulosin ER 0.4 mg cap(s) (FLOMAX) 0.4 mg ORAL DAILY pantoprazole DR 40 mg tab(s) (PROTONIX) 40 mg ORAL BID levothyroxine 200 mcg tab(s) (SYNTHROID) 200 mcg ORAL BEFORE BREAKFAST DAILY atorvastatin 80 mg tab(s) (LIPITOR) 80 mg ORAL AT BEDTIME Current Antibiotics: Ceftriaxone Vancomycin Doxy Gent Objective Physical Exam: Temp (24hrs), Av.8 ?C (98.2 ?F), Min:36.6 ?C (97.8 ?F), Max:36.9 ?C (98.4 ?F) Temp (120hrs), Av.8 ?C (98.2 ?F), Min:36.3 ?C (97.3 ?F), Max:37.1 ?C (98.7 ?F) GENERAL APPEARANCE: lying in bed. CHEST: left upper chest PPM. LUNGS: decreased sounds at the bases. HEART: Regular; diastolic?murmur. ABDOMEN: Soft, non tender, no palpable masses, normal bowel sounds. EXTREMITIES: 2+ edema. NEURO: Awake, alert and oriented x3, no involuntary motions. Lab data: WBC (k/uL) Date Value 01/07/2018 3.80 01/06/2018 4.48 01/05/2018 4.28 01/04/2018 5.14 01/03/2018 4.56 Platelet Count (k/uL) Date Value 01/07/2018 95 01/06/2018 91 01/05/2018 79 01/04/2018 80 01/03/2018 76 Creatinine (mg/dL) Date Value 01/07/2018 4.43 01/06/2018 6.01 01/05/2018 4.81 01/04/2018 6.61 01/03/2018 5.58 AST (U/L) Date Value 12/27/2017 32 ALT (U/L) Date Value 12/27/2017 22 Microbiology data: Bartonella Henselae Ab, Igg: >1:1024 Bartonella Henselae Ab, Igm: 1:64 Bartonella Amato Ab, Ig:1024 Bartonella Amato Ab, Igm: < 1:16 Bartonella PCR: PENDING Impression/Recommendations 62 yo gentleman with a h/o AVR (pericardial valve at [facility]) for on 05/07/2017, A-fib and SSS s/p PPM, and Min-en-Y gastric bypass 1995. ? 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 Patient had evidence of severe malfuntioning of aortic PV, highly suspicious for PVE. Endocarditis has been the most common infection associated with renal failure and C3+ crescentic GN. 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 ? RECOMMENDATIONS: 1. Continue with Gentamycin IV and Doxycycline for Bartonella PVE. Measure Gentamycin trough on Monday 01/08 2. Stop Vancomycin and Ceftriaxone. 2. Follow CT surgery recommendations. Might need CT chest w/contrast. Coordinate with CT sx and nephrology. 3. CD with prior CHANDRAKANT from OSH handed over to Cardiology for revision today. ? Case discussed with Dr. Ruiz SIGNATURE: Nicanor Schwarz MD PATIENT NAME: Frank Rivera DATE: January 07, 2018 TIME: 1:36 PM PAGER/CONTACT #: [phone] Chart reviewed, patient examined, and hernandez elements of history and physical examination of the patient confirmed. I reviewed the resident/fellow's note, examined the patient, and agree with the documented findings and plan of care. The above reflects my direct input. Discussed with Cardiology and Primary team directly. Dr. Mena is available this , and Dr. Love assumes care Thursday. Gee Ruiz MD Pager [phone] January 07, 2018 9:43 PM PROGRESS Observed: 01/07/2018 Status: COMPLETED Source: PLANO 7:36 AM [facility] REPOSITORY [facility] ID: [id number] Author: Cintia Wiley Service: Hospital Medicine Author Type: Physician Type: Progress Notes Filed: 01/07/2018 6:03 PM Note Text: INPATIENT PROGRESS NOTE For questions regarding this patient, please page [phone] during 7 a.m. - 5 p.m. After 5 p.m., please page on-call Adrien pager [phone] for concerns. Brief Plan - OSH CHANDRAKANT obtained, pending review by ID and Cardiology - Bartonella positive, d/c'ed vanc and ceftriaxone, continue gentamycin, doxy - Herring removed - CTS consulted: Dr. Cuauhtmeoc Parker, cardiac CT, brain imaging (recent stroke), PFT/DLCO (d/t smoking history) and will discuss if a repeat cardiac cath is necessary as a part of the evaluation. - possible transfer to Cardiology floor for pre-op eval - pt complaining of RLQ pain --> likely MSK, given tylenol, CT abd/pelvis negative, stable L rectus sheath hematoma - continue hemodialysis (-W-) as per nephrology recommendations - Monitor H/H and transfuse Hg < 7 mg/dL or platelets < 50 Interval History No acute events overnight. Doing well this morning. Denies any symptoms, no fever, chills, no shortness of breath. IV Lasix 120mg x 1 challenge 01/03 overnight -- minimal increase in UOP Physical Exam BP 142/63 Pulse (!) 58 Temp 36.9 ?C (98.4 ?F) (Oral) Resp 18 Ht 193 cm (6' 4) Wt 110.8 kg (244 lb 3.2 oz) SpO2 99% BMI 29.72 kg/m? -I/O: Intake/Output Summary (Last 24 hours) at 01/07/18 0736 Last data filed at 01/07/18 0600 Gross per 24 hour Intake 720 ml Output 3000 ml Net -2280 ml GENERAL: Alert, no distress, cooperative SKIN: Skin color, texture, turgor normal. No rashes or lesions. LUNGS: CTAB CARDIAC: Murmur 2/6, systolic, right upper sternal border ABDOMEN: Soft, non-distended, LLQ tenderness, +BS EXTREMETIES: No ulcers, 1-2+ pitting edema to knees NEURO: Alert, oriented X 3.?motor exam grossly normal. Sensation grossly intact., Cranial nerves II-XII intact PULSES: 2+ radial Medications Current hospital medications: acetaminophen 650 mg tab(s) (TYLENOL) 650 mg ORAL q 4 H PRN calcium carbonate 1,000 mg chewable tab(s) (TUMS) 1,000 mg ORAL/FEEDING TUBE 2 times per day vancomycin dosing and monitoring per pharmacy OTHER As Directed qhwashle-dvss-xtojp acid chewable tablet (CENTRUM) 1 tablet ORAL DAILY cholecalciferol 3,000 Units tab(s) (VITAMIN D3) 3,000 Units ORAL DAILY cyanocobalamin 500 mcg tab(s) (VITAMIN B-12) 500 mcg ORAL DAILY thiamine 100 mg tab(s) (VITAMIN B1) 100 mg ORAL DAILY senna-docusate 8.6-50 mg 1 tablet (SENNA-S) 1 tablet ORAL/FEEDING TUBE BID PRN polyethylene glycol 3350 17 g packet (MIRALAX, GLYCOLAX) 17 g ORAL DAILY PRN cefTRIAXone 2 g in D5W 100 mL MB+ (ROCEPHIN) 2 g INTRAVENOUS q 24 H gentamicin 100 mg in NaCl (iso-osmotic) 100 mL 100 mg INTRAVENOUS MO-WE-FR doxycycline hyclate 100 mg cap(s) (VIBRAMYCIN) 100 mg ORAL q 12 H vancomycin iv piggyback 1 g in D5W 200 mL (VANCOCIN) 1 g INTRAVENOUS MO-WE-FR diphenhydrAMINE 25 mg (BENADRYL) 25 mg ORAL q 6 H PRN sodium chloride 0.65 % 2 [place] (AYR, OCEAN) 2 [place] EACH NOSTRIL TID aspirin, enteric coated 81 mg tab(s) 81 mg ORAL DAILY metoprolol tartrate (short acting) 12.5 mg tab(s) (LOPRESSOR) 12.5 mg ORAL BID docusate sodium 100 mg cap(s) (COLACE) 100 mg ORAL BID tamsulosin ER 0.4 mg cap(s) (FLOMAX) 0.4 mg ORAL DAILY pantoprazole DR 40 mg tab(s) (PROTONIX) 40 mg ORAL BID levothyroxine 200 mcg tab(s) (SYNTHROID) 200 mcg ORAL BEFORE BREAKFAST DAILY atorvastatin 80 mg tab(s) (LIPITOR) 80 mg ORAL AT BEDTIME Labs CBC: Recent Labs 01/07/18 0424 01/06/18 0407 01/05/18 0500 01/04/18 0431 01/03/18 0543 01/02/18 0527 01/01/18 0500 12/31/17 1349 WBC 3.80 4.48 4.28 5.14 4.56 3.58* 3.71 -- 3.46* HB 7.2* 7.3* 7.8* 7.9* 8.1* 8.2* 8.2* -- 7.3* HCT 22.4* 23.1* 24.3* 24.3* 25.2* 26.2* 24.4* -- 22.5* PLT 95* 91* 79* 80* 76* 72* 73* -- 67* MCV 95.3 94.7 96.0 93.8 94.4 96.3 93.5 -- 94.1 RDWCV 17.6* 17.1* 17.2* 17.2* 17.2* 17.4* 17.7* -- 18.1* NEUTP 56.9 62.0 61.0 64.9 63.3 55.9 62.5 < > -- ABSNEUT 2.14 2.78 2.60 3.32 2.89 1.98 2.32 < > -- LYMPHP 32.6 27.2 29.2 25.5 25.9 33.8 27.5 < > -- MONOP 9.2 9.2 8.4 8.2 9.2 9.2 8.9 < > -- EODINP 0.8 0.9 0.7 0.6 0.9 0.8 0.8 < > -- < > = values in this interval not displayed. BMP: Recent Labs 01/07/1842301/06/1840601/05/180 01/04/1843001/03/1843 01/02/18 0501/01/18 0500 GLUC 80 82 85 86 82 83 82 NA 132* 133* 134* 132* 135* 136 134* K 4.4 4.6 4.4 4.7 4.5 4.2 4.3 CHLOR 98 96* 98 96* 97 99 96* CO2 25 24 27 26 28 30 25 ANION 9 13 9 10 10 7* 13 BUN 18 30* 22 37* 32* 23 31* CREAT 4.43* 6.01* 4.81* 6.61* 5.58* 4.51* 5.38* CHEM: Recent Labs 01/07/1842301/06/1840601/05/18 0500 01/04/181 01/03/18 0543 01/02/1852601/01/18 0500 CA 7.7* 7.8* 7.7* 7.6* 7.6* 7.6* 7.7* MG 1.7 1.9 1.8 1.8 1.8 1.8 1.9 HEPATIC: No results for input(s): ALKPHOS, ALT, AST, TBILI, LIPASE in the last 168 hours. COAG: Recent Labs 12/31/17 1349 INR 1.4* URINALYSIS:No results for input(s): PH, SPGR, UGLUC, UBILI, UKET, UHB, UPROT, UROBIL, UWBC, SSA in the last 168 hours. Invalid input(s): NITR CARDIAC: No results for input(s): CKTEST, CKMB, CKMBP, TROPT, PBNP in the last 168 hours. Imaging ECHO TRANSESOPHAGEAL 01/01/2018 - Exam indication: ?Endocarditis - The left ventricle is normal in size. Left ventricular systolic function is normal. EF = 60 ? 5% (visual est.) - The right ventricle is dilated. Right ventricular systolic function is mildly decreased. - The left atrial cavity is dilated. - Previous RUDY ligation. Small residual RUDY. - The right atrial cavity is dilated. - There is moderate (2+ - 3+) tricuspid valve regurgitation. 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 There is moderately severe (3+) aortic valve regurgitation due to paravalvular endocarditis. - There is no patent foramen ovale as detected by Doppler and saline contrast. - The Aortic valve prosthesis appears to be well seated with evidence of mild degeneration and without any obvious mobile echodensity on its leaflets. There is thickening of the Aorto-Mitral curtain and posterior LA wall which is suggestive of either hematoma or active infection. - There does not appear to be any transvalvular AI however there is a diastolic flow arising from the subvalvular region which may (Clip #47, #42) or may represent 3+ paravalvular regurgitation with a very eccentric jet. Consider Cardiac CT for better characterization and to r/o the presence of a fistula or abscess. - There is a a small mobile echodensity within the RA which may be attached either ?to the Venous catheter or the atrial portion of one of the pacemaker leads (1.2cm ?x 0.55 cm, Clip #28). This may represent vegetation or thrombus. - Exam was compared with the prior echocardiographic exam performed on 12/25/2017. Thrombus/Vegetation on pacemaker lead/venous catheter and possible paralvalvular leak. XR CHEST 1V FRONTAL 12/27/2017 Lines, Tubes, and Devices: ?Right IJ line mid SVC. Stable pacemaker. Lungs and Pleura: ?Bilateral effusions and overlying opacity similar to prior. No pneumothorax. Cardiomediastinal silhouette: ?Stable cardiac silhouette. ? CT ABD/PEL WO IVCON 12/27/2017 LARGE LEFT RECTUS SHEATH HEMATOMA, STABLE OR SLIGHTLY INCREASED IN SIZE SINCE 12/25/2017. 3.3 CM ROUND LOW-ATTENUATION LESION ADJACENT TO THE CELIAC AXIS WHICH MAY BE AN ENLARGED LYMPH NODE. CHOLELITHIASIS WITHOUT EVIDENCE CHOLECYSTITIS. HEPATIC STEATOSIS. ? US ABD RT UPPER QUADRANT AND SPLEEN 12/26/2017 CHOLELITHIASIS IN A DISTENDED GALLBLADDER WITHOUT OTHER EVIDENCE OF ACUTE CHOLECYSTITIS. DIFFUSE HEPATIC STEATOSIS. The craniocaudal length of the spleen is 10.1 cm, normal. There are no splenic lesions. ? CT ABD/PEL WO IVCON 12/25/2017 Moderate LEFT rectus sheath hematoma Diffuse hepatic steatosis. 2.6 cm low-attenuation structure abutting the celiac, possibly an enlarged lymph node. ?Further evaluation with contrast-enhanced study should be considered. Cholelithiasis without evidence of acute cholecystitis. ? LEG DVT JORGE LUIS BOBBY 12/25/2017 RIGHT SIDE - DEEP VEINS Negative for acute deep vein thrombosis. Thickened redmond, patent distal external iliac vein and common femoral vein. Only segments visualized of the posterior tibial veins and peroneal veins. Multiple enlarged lymph nodes noted in the right groin with the largest measuring aproximately: 1.4 x 1.5 x 0.9 cm. RIGHT SIDE - SUPERFICIAL VEINS Thickened redmond, patent great saphenous?vein. LEFT SIDE - DEEP VEINS Only segments visualized of the posterior tibial veins and peroneal veins. Multiple enlarged lymph nodes noted in the right groin with the largest measuring aproximately: 2.3 x 1.8 x 0.7 cm. 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 ? XR CHEST 1V FRONTAL Lines, tubes, and devices: ?The patient is status post median sternotomy and left 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 clip placement. ?Left pacemaker device is in place with leads in the right atrium and the right ventricle. ?Surgical clips overlie the upper abdomen. Lungs and pleura: ?Patchy reticular opacities are noted, likely related to pulmonary edema. Hazy opacity overlying the right lung base is likely related to small right pleural effusion and adjacent atelectasis/consolidation. ?Also noted is trace left pleural effusion. ?A vertically oriented lucency overlying the right lower chest is favored to be a skinfold. Cardiomediastinal silhouette: ?Cardiac silhouette is enlarged with pulmonary venous congestion. ? ECHO 12/25/2017 - Technically difficult exam due to suboptimal positioning. - Exam indication: Initial evaluation of Heart Failure - The left ventricle is moderately dilated. There is moderate concentric left ventricular hypertrophy. Left ventricular systolic function is normal. EF = 66 ? 5% (2D biplane) - The right ventricle is normal in size. Right ventricular systolic function is normal. - The left atrial cavity is severely dilated. - The right atrial cavity is dilated. - There is moderate (2+) mitral valve regurgitation. Thickened mitral valve leaflets. - There is moderate (2+ - 3+) tricuspid valve regurgitation. 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 There is moderately severe (3+) aortic valve regurgitation. The peak gradient is 39 mmHg, the mean gradient is 17 mmHg and the dimensionless valve index is 0.53. There is both valvular and paravalvular AI. There is flow reversal in the descending aorta. - Estimated right ventricular systolic pressure is?likely underestimated due to a weak or incomplete tricuspid regurgitation signal and is, at least, 70 mmHg consistent with moderately severe pulmonary hypertension. Estimated right atrial pressure is 15 mmHg. - The patient has not had a prior CC echocardiographic exam for comparison. Assessment and Plan Mr. Frank Rivera?is a 62y/o gentleman with atrial fibrillation and SSS s/p PPM, HTN, hypothyroidism, aortic stenosis s/p AVR and RUDY, history of Min-en-Y bypass c/b recurrent GIB, ADRIANNE, B12 deficiency, who presents to [facility] on 12/24/17 with fatigue and shortness of breath who was transferred from OSH with IRINA and renal biopsy concerning for C3 nephropathy. MICU transfer to initiate dialysis secondary to volume overload. Patient is now anuric IRINA-D. 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 ? 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 (no brain MRI performed to date, unable to be performed due to ESRD), and that IRINA is immunologic phenomena secondary to IE - By Zabala criteria, possible if no mycotic aneurysm, definite if mycotic aneurysm (or if +Bartonella serology) - Afebrile, HDS, negative blood cultures, no leukocytosis - Bartonella henselae IgM positive at 1:64 indicating acute Bartonella henselae infection Bartonella amato IgM is negative, however IgG is positive indicating past bartonella amato infection Plan: - appreciate ID recs: reviewing CHANDRAKANT, antibiotics regimen: continue IV Gentamicin 300mg loading dose, 100mg MWF after dialysis, measure trough on 01/08 continue Oral Doxycycline 100mg BID - appreciate CT Surgery recs: - Dr. Cuauhtemoc Parker assigned - cardiac CT, brain imaging (recent stroke), PFT/DLCO (d/t smoking history) and will discuss if a repeat cardiac cath is necessary as a part of the evaluation - consider tx to Cardiology floor #Pancytopenia #Hemolytic anemia Presented with fatigue, shortness of breath History of UGIB secondary to Min-en-Y (most recently 2015), OSH EGD/C-scope/tagged RBC scan showed no evidence of bleed Requiring pRBC transfusion x 3 during this hospitalization Concerns for hemolytic process, not Petar driven--peripheral smear showed evidence of scant schistocytes, yojana cells, rare spherocytes, thrombocytopenia. ?Elevated Igs, will try to continue to workup lymphoproliferative process as potential etiology Plan: - Transfuse Hgb < 7, Plts < 50 ?#Atrial fibrillation S/p PPM for sick sinus syndrome Metoprolol 12.5mg BID home dose held for acute anemia, which has now stabilized HR in 80s-low 100s, HDS Plan: -Hold apixaban?for rectus sheath hematoma, will trial with heparin gtt, if tolerates, -Continue metoprolol 12.5mg BID -Tele ? #Rectus sheath hematoma Last imaging 12/27/17 showed 20 x 8.7 x 6.7 cm left rectus sheath hematoma, unclear etiology Plan: -Daily CBC -hold off AC for now, unlikely he would resume back Eliquis due to kidney dysfunction #Lymphadenopathy 3.3 x 2.9cm ?LN in celiac region, concern by Hematology for possible lymphoproliferative disorder Plan: -Hold on LN biopsies at this point -Appreciate ID recs. Follow up bartonella testing #IRINA-D, non-oliguric P/w fatigue, SOB, SCr 4.1 (b/l 1.0 in 10/2017) C/b volume overload, NAGMA, hyperphosphatemia Unclear etiology, per OSH renal biopsy report, C3 and IgM mesangium deposits, one of 28 glomeruli had crescent (?TMA), low C3, p-ANCA+ but MPO unremarkable NTDC placed 12/27/17 for volume overload, improving Plan:? - continue IHD - continue sodium bicarbonate 650mg TID - daily BMP - f/u Nephrology recs ? #CAD - continue atorvastatin 80mg qHS ? #Mild protein-calorie malnutrition - nutritional support ? #Hypothyroidism -Continue levothyroxine 200mcg qAM ? 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 Diet: Renal DVT PPx: IPCs GI PPx: Pantoprazole 40mg qDay Fran Garner MD, [place] [address] [email or web address] Pager #: [phone] Note: These recommendations are not final until staffed by provider For questions regarding this patient, please page [phone] during 7 a.m. - 5 p.m. After 5 p.m., please page on-call Adrien pager [phone] for concerns. [facility] STAFF PHYSICIAN NOTE OF PERSONAL INVOLVEMENT IN CARE I have reviewed the progress note obtained and documented by the resident and I personally participated in the hernandez components. I have discussed the case and management of the patient's care. The following comments revise or confirm relevant hernandez components of their note. 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 ? He also had a bone marrow biopsy to evaluate pancytopenia to rule out myeloma process. ?This is being reviewed by our pathologists now (requested tissue block) ? Hospital course complicated by need for red cell and platelet transfusion as well as spontaneous rectus sheath hematoma,?required CVVHD and then hemodialysis for hypoxemic respiratory failure and volume overload requiring MICU stay. ? 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 paravalvular leak with ? abscess/IE 01/06 CT abd showed improvement of right psoas hematoma, no new bleeding Bartonella henselae IG M and IGG positive ? Plan: appreciate consult teams input, deescalate Ab per ID to doxy and gentamicin( dc rocephin and vanc) in light of positive Bartonella serologies hemodialysis per nephrology Appreciate consult teams input, awaiting CT input, Dr. Berry to review the case ? Cintia Wiley MD (Nieves Souza) [facility] Medicine Department Pager [phone] 01/07/2018 3:25 PM ? CBC AND DIFFERENTIAL Collected: 01/07/2018 Status: F Source: PLANO 4:24 AM [facility] REPOSITORY TYPE CODE TESTS RESULT OUT OF REFERENCE UNITS RANGE LAB WBC 3.70-11.00 k/uL WBC 3.80 LAB RBC 4.20-6.00 m/uL Low RBC 2.35 LAB HGB 13.0-17.0 g/dL Low Hemoglobin 7.2 LAB HCT 39.0-51.0 % Low Hematocrit 22.4 LAB MCV 80.0-100.0 fL MCV 95.3 LAB MCH 26.0-34.0 pG MCH 30.6 LAB MCHC 30.5-36.0 g/dL MCHC 32.1 LAB RDWCV 11.5-15.0 % RDW-CV High 17.6 LAB PLTCT 150-400 k/uL Low Platelet Count 95 Result Comment: No clot detected. LAB MPV 9.0-12.7 fL MPV 10.3 LAB ANEUT % Neut% 56.9 LAB AANEUT 1.45-7.50 k/uL Abs Neut 2.14 LAB ALYMP % Lymph% 32.6 LAB AALYMP 1.00-4.00 k/uL Abs Lymph 1.24 LAB AMONO % Pope% 9.2 LAB AAMONO <0.87 k/uL Abs Pope 0.35 LAB AEOS % Eosin% 0.8 LAB AAEOS <0.46 k/uL Abs Eosin 0.03 LAB ABASO % Baso% 0.5 LAB AABASO <0.11 k/uL Abs Baso <0.03 LAB AUNRBC 0 /100 WBC NRBCs 0.0 LAB ABNRBC <0.01 k/uL Absolute nRBC <0.01 LAB DTYP DTYPE Auto Diff Performed By: #### CBCDIF, BMP, MG1, PHOS #### [facility] [address] [place] [address] [place], [place] [address] BASIC METABOLIC PANL Collected: 01/07/2018 Status: F Source: PLANO 4:24 AM [facility] REPOSITORY TYPE CODE TESTS RESULT OUT OF REFERENCE UNITS RANGE LAB GLU 74-99 mg/dL Glucose 80 Result Comment: The [place] Diabetes Association (ADA) provides guidance for cutoff values for fasting glucose and random glucose. The ADA defines fasting as no caloric intake for at least 8 hours. Fas ting plasma glucose results between 100 to 125 mg/dL indicate increased risk for diabetes (prediabetes). Fasting plasma glucose results greater than or equal to 126 mg/dL meet the criteria for diagnosis of diabetes. In the absence of unequivocal hyperglycemia, results should be confirmed by repeat testing. In a patient with classic symptoms of hyperglycemia or hyperglycemic crisis, random plasma glucose results greater than or equal to 200 mg/dL meet the criteria for diagnosis of diabetes. Reference: Standards of Medical Care in Diabetes 2016, [place] [employer] Association. Diabetes Care. 2016.39(Suppl 1). LAB BUN 9-24 mg/dL BUN 18 LAB CRET 0.73-1.22 mg/dL Creatinine High 4.43 LAB NA 136-144 mmol/L Low Sodium 132 LAB K 3.7-5.1 mmol/L Potassium 4.4 LAB CL 97-105 mmol/L Chloride 98 LAB CO2 22-30 mmol/L CO2 25 LAB AGAP 9-18 mmol/L Anion Gap 9 LAB CA 8.5-10.2 mg/dL Low Calcium, Total 7.7 LAB GFRAA eGFR- Amer. 17 LAB GFRNAA . eGFR-All Other Races 14 Result Comment: eGFR (Estimated GFR) Units of measure: mL/min/1.73 meters squared eGFR is derived from the reexpressed MDRD Study equation using the following parameters: serum creatinine, age, gender and race. The creatinine assay has been calibrated to be traceable to IDMS. An eGFR <60 mL/min/1.73m2 for >3 months is consistent with chronic kidney disease. Refer to KDOQI guidelines for clinical interpretation. In patients with unstable renal function, e.g. those with acute kidney injury, the eGFR may not accurately reflect actual GFR. Performed By: #### CBCDIF, BMP, MG1, PHOS #### [facility] [employer] [address] [address] MAGNESIUM Collected: 01/07/2018 Status: F Source: PLANO 4:24 AM [facility] REPOSITORY TYPE CODE TESTS RESULT OUT OF REFERENCE UNITS RANGE LAB MG 1.7-2.3 mg/dL Magnesium 1.7 Performed By: #### CBCDIF, BMP, MG1, PHOS #### [facility] [employer] [address] [address] PHOSPHORUS Collected: 01/07/2018 Status: F Source: PLANO 4:24 AM [facility] REPOSITORY TYPE CODE TESTS RESULT OUT OF REFERENCE UNITS RANGE LAB PHOS 2.7-4.8 mg/dL Phosphorus 3.2 Performed By: #### CBCDIF, BMP, MG1, PHOS #### [facility] [address] [address] NUTRITION Observed: 01/06/2018 Status: COMPLETED Source: PLANO 3:05 PM [facility] REPOSITORY HNO ID: [id number] Author: Tianna Benavides) Igejenni Service: Nutrition Therapy Author Type: Registered Dietitian Type: Nutrition Filed: 01/06/2018 3:29 PM Note Text: NUTRITION THERAPY REASSESSMENT SERVICE DATE: 01/06/2018 SERVICE TIME: 3:06 PM RECOMMENDED MALNUTRITION DIAGNOSIS: MODERATE PROTEIN-CALORIE MALNUTRITION In the context of Acute Illness or Injury based on: Insufficient Energy Intake: <75% for >7 days Subcutaneous Fat Loss: Mild Loss Muscle Loss Mild Loss NUTRITION CARE PLAN: Problem, Etiology and Signs/Symptoms: Suboptimal protein/energy intake related to poor appetite as evidenced by pt reports of eating <50% of meals and eating 100% of snacks - ongoing Intervention: ? Meals and Snacks - Continue Renal Diet Medical Food Supplements - Change supplement to Zone bar BID (410 kcal and 28 gm pro) - Add Beneprotein TID (75 kcal and 18 gm pro) - Order Bariatric Vitamin/Mineral Regimen Daily MVI w/ minerals 75-100 mcg thiamine 500 mcg B12 3000 IU Vit D Initial/Brief Nutrition Education - Renal Diet Basics ed provided .Enteral and Parenteral Nutrition - If unable to meet nutrition needs via oral diet, may need to consider [place] placement w/ TF. Recommend Novasource Renal @ 55 ml/hr x 24 hrs (1320ml, 2640 kcal 120 gm pro, 1297 ml H20 w/ flush, > 100% USDRI vits/mins) - Flush 60 ml x 6 Monitor and Evaluation: Goal: Meet >75% of estimated needs Monitor fluid/electrolyte balance Monitor labs, I/Os, vital signs, weight Discharge Nutrition Recommendations: Diet: Renal diet Supplements: High kcal/protein supplement x 2-3 per day as needed for intakes meeting < 75% est needs Education: Renal Diet Per HPI: Mr. 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 MICU transfer to initiate dialysis secondary to volume overload. Patient is now anuric IRINA-D. 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 Interval History: Per IM note 01/06 Brief Plan - called [facility] for outside CHANDRAKANT records - CTS consulted, likely transfer to Cardiology floor for pre- op eval - pt complaining of RLQ pain --> given tylenol, pending CT abd/pelvis - continue hemodialysis (--) as per nephrology recommendations - Monitor H/H and transfuse Hg < 7 mg/dL or platelets < 50 - Appreciate ID recommendations - they are awaiting CHANDRAKANT from OSH. Pending bartonella PCR and serology. ? 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 - Continue IV Ceftriaxone 2g QD, 100mg MWF after dialysis, oral Doxycycline 100mg BID, vancomycin 1g MWF after dialysis - Follow up on pathology review of BM slides. Interval History ? No acute events overnight. Doing well this morning. Denies any symptoms, no fever, chills, no shortness of breath. IV Lasix 120mg x 1 challenge 01/03 overnight -- minimal increase in UOP Current Diet Order DIET RENAL Order Specific Question: Renal Answer: 90GM PRO / 2GM K / 2 GM NA / LOW PHOSPHORUS Nutritional Intake: <50% estimated energy need over the past 2 day(s) 01/04-: Avr meal intake 56% which provides 929 kcal and 33 gm pro (37% est kcal and 28% ets pro needs). Pt reports minimal intake of ensure clear. C/o heart burn and anorexia GI symptoms: anorexia, early satiety and GERD Nutrition Abdominal Exam: and abdomen is soft ANTHROPOMETRICS Height: 193 cm (6' 4) Admission Weight: 115.7 kg (255 lb 1.6 oz) Current Weight: 110.8 kg (244 lb 3.2 oz) Body mass index is 29.72 kg/m?. IBW: 202# +/- 10% UBW: 221# (100 kg) Weight has increased by 10.8 kg over 3-4 weeks representing 10.8% weight change unable to assess weight changes due to fluid shifts Last Wt 01/06/18 : 110.8 kg (244 lb 3.2 oz) Resting Metabolic Rate: 2053 Dosing wt: 100 kg Estimated kilocalorie needs: 2500 - 3000 kilocalories determined by 25-30 kcal/kg Estimated protein needs: 120 - 150 grams determined by 1.2- 1.5 g/kg Dosing weight Estimated fluid needs: 2000 - 2500 milliliters based on 20- 25 mL/kg NUTRITION FOCUSED PHYSICAL EXAM: Subcutaneous Fat Loss Orbital No fat loss Triceps Mild Mid-axillary at the iliac crest No fat loss Muscle Loss Locations: Temporalis Mild Pectoralis Mild Deltoids Mild Interosseous Mild Latissimus dorsi, trapezius Unable to determine at this time Quadriceps No muscle loss Gastrocnemius Mild Potential micronutrient deficiency revealed in: Nails - spoon shaped (H/O ACD) Edema: Yes Lower extremities Mild 1+ Ascites: No Assessment of Functional Status: Able to do little activity and spend most of the day in bed or chair for a duration of 3-4 weeks Temperature Max in 24 hours: Temp (24hrs), Av.8 ?C (98.3 ?F), Min:36.6 ?C (97.9 ?F), Max:37.1 ?C (98.7 ?F) BP 132/70 Pulse 60 Recent Labs 01/06/18 0407 GLUC 82 BUN 30* CREAT 6.01* NA 133* K 4.6 CHLOR 96* CO2 24 P 3.5 HB 7.3* HCT 23.1* WBC 4.48 MG 1.9 Potential Signs of Inflammation: imaging studies and microbiologic cultures Current Facility-Administered Medications: calcium carbonate 1,000 mg chewable tab(s) (TUMS) 1,000 mg ORAL/FEEDING TUBE 2 times per day vancomycin dosing and monitoring per pharmacy OTHER As Directed mikmwuno-cvqz-dkyjv acid chewable tablet (CENTRUM) 1 tablet ORAL DAILY cholecalciferol 3,000 Units tab(s) (VITAMIN D3) 3,000 Units ORAL DAILY cyanocobalamin 500 mcg tab(s) (VITAMIN B-12) 500 mcg ORAL DAILY thiamine 100 mg tab(s) (VITAMIN B1) 100 mg ORAL DAILY senna-docusate 8.6-50 mg 1 tablet (SENNA-S) 1 tablet ORAL/FEEDING TUBE BID PRN polyethylene glycol 3350 17 g packet (MIRALAX, GLYCOLAX) 17 g ORAL DAILY PRN cefTRIAXone 2 g in D5W 100 mL MB+ (ROCEPHIN) 2 g INTRAVENOUS q 24 H gentamicin 100 mg in NaCl (iso-osmotic) 100 mL 100 mg INTRAVENOUS MO-WE-FR doxycycline hyclate 100 mg cap(s) (VIBRAMYCIN) 100 mg ORAL q 12 H vancomycin iv piggyback 1 g in D5W 200 mL (VANCOCIN) 1 g INTRAVENOUS MO-WE-FR diphenhydrAMINE 25 mg (BENADRYL) 25 mg ORAL q 6 H PRN sodium chloride 0.65 % 2 [place] (AYR, OCEAN) 2 [place] EACH NOSTRIL TID aspirin, enteric coated 81 mg tab(s) 81 mg ORAL DAILY metoprolol tartrate (short acting) 12.5 mg tab(s) (LOPRESSOR) 12.5 mg ORAL BID docusate sodium 100 mg cap(s) (COLACE) 100 mg ORAL BID tamsulosin ER 0.4 mg cap(s) (FLOMAX) 0.4 mg ORAL DAILY pantoprazole 40 mg tab(s) (PROTONIX) 40 mg ORAL BID levothyroxine 200 mcg tab(s) (SYNTHROID) 200 mcg ORAL BEFORE BREAKFAST DAILY atorvastatin 80 mg tab(s) (LIPITOR) 80 mg ORAL AT BEDTIME Date 01/05/18 1500 - 01/06/1859 01/06/18 0700 - 01/07/18 0659 Shift 2345-4915 2453-3960 24 Hour Total 3236-9151 9495-4611 6722-7320 24 Hour Total I N T A K E PO 120 700 PO 120 700 IV 100 30 130 IV Flushes 0 30 30 IVPB 0 0 0 NS 0.9% 0 0 0 Vancomycin IV 0 0 0 Cipro IV 0 0 0 Ceftriaxone IV 100 0 100 Gentamycin IV 0 0 0 Morphine Volume 0 0 0 Fentanyl Volume 0 0 0 Regular Insulin IV 0 0 0 Furosemide IV 0 0 0 Flagyl IV 0 0 0 D50W IV Syringe 0 0 0 Ferric Gluconate IV 0 0 0 Shift Total 220 30 830 O U T P U T Urine 0 0 Void (ml) 0 0 # of BMs Number of BMs 1 x 1 x Dialysis 3000 3000 Dialysis Output (Ultrafiltration) 3000 3000 Shift Total 0 0 3000 3000 Weight (kg) 107.8 110.8 110.8 110.8 110.8 110.8 110.8 Vitamin and Mineral Labs in the past year: Recent Labs 12/24/17 1632 TIBC <157* FE 140 MAX 422.0 MNT Billing Type: Re-assess/15 min 3 units SIGNATURE: Tianna Villegas, MS, RD, LD PATIENT NAME: Frank Rivera DATE: January 06, 2018 TIME: 3:05 PM PAGER: [phone] PROGRESS Observed: 01/06/2018 Status: COMPLETED Source: [place] 2:22 PM [facility] REPOSITORY HNO ID: [id number] Author: Gee Ruiz Service: Infectious Disease Author Type: Physician Type: Progress Notes Filed: 01/06/2018 5:14 PM Note Text: PROGRESS NOTE INFECTIOUS DISEASE SERVICE DATE: 01/06/2018 SERVICE TIME: 14:10 Subjective Interval Events: Patient has been stable. No SOB, CP or fevers. CT surgery was consulted and pending eval. ROS: 6 systems were reviewed and negative apart from the above. Medications: Current hospital medications: calcium carbonate 1,000 mg chewable tab(s) (TUMS) 1,000 mg ORAL/FEEDING TUBE 2 times per day vancomycin dosing and monitoring per pharmacy OTHER As Directed fglkvggw-sgju-ebbju acid chewable tablet (CENTRUM) 1 tablet ORAL DAILY cholecalciferol 3,000 Units tab(s) (VITAMIN D3) 3,000 Units ORAL DAILY cyanocobalamin 500 mcg tab(s) (VITAMIN B-12) 500 mcg ORAL DAILY thiamine 100 mg tab(s) (VITAMIN B1) 100 mg ORAL DAILY senna-docusate 8.6-50 mg 1 tablet (SENNA-S) 1 tablet ORAL/FEEDING TUBE BID PRN polyethylene glycol 3350 17 g packet (MIRALAX, GLYCOLAX) 17 g ORAL DAILY PRN cefTRIAXone 2 g in D5W 100 mL MB+ (ROCEPHIN) 2 g INTRAVENOUS q 24 H gentamicin 100 mg in NaCl (iso-osmotic) 100 mL 100 mg INTRAVENOUS MO-WE-FR doxycycline hyclate 100 mg cap(s) (VIBRAMYCIN) 100 mg ORAL q 12 H vancomycin iv piggyback 1 g in D5W 200 mL (VANCOCIN) 1 g INTRAVENOUS MO-WE-FR diphenhydrAMINE 25 mg (BENADRYL) 25 mg ORAL q 6 H PRN sodium chloride 0.65 % 2 [place] (AYR, OCEAN) 2 [place] EACH NOSTRIL TID aspirin, enteric coated 81 mg tab(s) 81 mg ORAL DAILY metoprolol tartrate (short acting) 12.5 mg tab(s) (LOPRESSOR) 12.5 mg ORAL BID docusate sodium 100 mg cap(s) (COLACE) 100 mg ORAL BID tamsulosin ER 0.4 mg cap(s) (FLOMAX) 0.4 mg ORAL DAILY pantoprazole DR 40 mg tab(s) (PROTONIX) 40 mg ORAL BID levothyroxine 200 mcg tab(s) (SYNTHROID) 200 mcg ORAL BEFORE BREAKFAST DAILY atorvastatin 80 mg tab(s) (LIPITOR) 80 mg ORAL AT BEDTIME Objective Physical Exam: Temp (24hrs), Av.8 ?C (98.3 ?F), Min:36.6 ?C (97.9 ?F), Max:37.1 ?C (98.7 ?F) Temp (120hrs), Av.7 ?C (98.1 ?F), Min:36.3 ?C (97.3 ?F), Max:37.1 ?C (98.7 ?F) GENERAL APPEARANCE: lying in bed. CHEST: left upper chest PPM. LUNGS: decreased sounds at the bases. HEART: Regular; diastolic?murmur. ABDOMEN: Soft, non tender, no palpable masses, normal bowel sounds. EXTREMITIES: 2+ edema. NEURO: Awake, alert and oriented x3, no involuntary motions. Lab data: WBC (k/uL) Date Value 01/06/2018 4.48 01/05/2018 4.28 01/04/2018 5.14 01/03/2018 4.56 01/02/2018 3.58 Platelet Count (k/uL) Date Value 01/06/2018 91 01/05/2018 79 01/04/2018 80 01/03/2018 76 01/02/2018 72 Creatinine (mg/dL) Date Value 01/06/2018 6.01 01/05/2018 4.81 01/04/2018 6.61 01/03/2018 5.58 01/02/2018 4.51 AST (U/L) Date Value 12/27/2017 32 ALT (U/L) Date Value 12/27/2017 22 Microbiology data: Reviewed Bartonella serologies and PCR pending Impression/Recommendations 62 yo gentleman with a h/o AVR (pericardial valve at [facility]) for on 05/07/2017, A-fib and SSS s/p PPM, and Min-en-Y gastric bypass 1995. ? 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 Patient had evidence of severe malfuntioning of aortic PV, highly suspicious for PVE. Endocarditis has been the most common infection associated with renal failure and C3+ crescentic GN. Among them, Staph and bartonella are commonly associated with PVE. Blood culture are negative. Bartonella is considered the MC cause of blood culture negative PVE. ? RECOMMENDATIONS: 1. Continue with broad antibiotic coverage 2. Follow CT surgery recommendations. W 3. Will need to compare prior OSH Echo with one from here. ? Case discussed with Dr. Ruiz SIGNATURE: Nicanor Schwarz MD PATIENT NAME: Frank Rivera DATE: January 06, 2018 TIME: 4:23 PM PAGER/CONTACT #: [phone] Chart reviewed, patient examined, and hernandez elements of history and physical examination of the patient confirmed. I reviewed the resident/fellow's note, examined the patient, and agree with the documented findings and plan of care. I have just received CD of the patient's prior CHANDRAKANT. Spoke to the team directly. Dr. Hernandez requested it be brought to [facility] in the morning for his review. I will do so. Continue antibiotics. Gee Ruiz MD Pager [phone] January 06, 2018 5:[address] ABD/PEL WO IVCON Observed: 01/06/2018 Status: F Source: [place] 2:01 PM [facility] REPOSITORY * * *Final Report* * * DATE OF EXAM: Jan 06 2018 2:01PM [facility] [place] [facility] 0531 - CT ABD/PEL WO IVCON / PROCEDURE REASON: Acute posthemorrhagic anemia * * * * Physician Interpretation * * * * EXAMINATION: CT ABDOMEN AND PELVIS WITHOUT IV CONTRAST CLINICAL HISTORY: History of rectus sheath hematoma, with right lower quadrant abdominal pain TECHNIQUE: Non-IV contrast imaging of the abdomen and pelvis was performed using standard technique, scanning from just above the dome of the diaphragm to the symphysis pubis. Unenhanced imaging is limited for the evaluation of some intra-abdominal and pelvic pathology. MQ: CTAPWO_3 Contrast: None CT Radiation dose: Integrated Dose-length product (DLP) for this visit = 1100 mGy*cm. CT Dose Reduction Employed: Automated exposure control (AEC) COMPARISON: 12/27/2017 RESULT: Abdomen / Pelvis: Soft tissues: * 5.5 x 10.2 x 10.4 cm evolving left rectus sheath hematoma (3:128, 5:78), previously 6.7 x 8.7 x 14.6 cm when measured in a similar fashion * Interval resolution of hematoma in the left prevesical region Moderate generalized body wall edema. Fat-containing umbilical hernia. Liver: Hepatic steatosis. Biliary: Cholelithiasis. Spleen: No splenomegaly. Pancreas: Unremarkable. Adrenals: No mass. Kidneys: Punctate left-sided nephrolithiasis. No hydronephrosis. GI Tract: Status post gastric bypass. No bowel dilation. Lymph Nodes: Stable 2.7 cm periportal node (3:37). Mesentery/peritoneum: Mild mesenteric edema. No ascites. Retroperitoneum: No mass. Vasculature: Arterial atherosclerotic disease without aneurysm. Pelvis: No mass or ascites. Fat-containing right inguinal hernia. Bones: Degenerative changes. Lower thorax: Moderate right and small left pleural effusions, with adjacent atelectasis versus consolidation. Partially visualized ICD leads and median sternotomy wires. IMPRESSION: EVOLVING LARGE RECTUS SHEATH HEMATOMA, SLIGHTLY DECREASED IN SIZE SINCE 12/27/2017 RESOLUTION OF LEFT PREVESICAL HEMATOMA I agree that this report by the resident or fellow represents my interpretation of the study. Loss Prevention Operations Manager: IDA Transcribe Date/Time: Jan 06 2018 2:02P Dictated by : RAMIREZ CAGLE MD This examination was interpreted and the report reviewed and electronically signed by: KARENA MIMS MD on Jan 06 2018 2:56PM EST [id number] PROGRESS Observed: 01/06/2018 Status: COMPLETED Source: [place] 1:10 PM [facility] REPOSITORY HNO ID: [id number] Author: LIZZ Harper (Ct) Service: Radiology Author Type: Clinical Spray Rig Operator Type: Progress Notes Filed: 01/06/2018 1:10 PM Note Text: Radiology Service Progress Note PATIENT NAME: Frank Rivera DATE OF SERVICE: January 06, 2018 TIME: 1:10 PM PATIENT IDENTITY VERIFICATION COMPLETED USING TWO (2) METHODS: Patient confirmed name verbally and ID band matches.. PATIENT GENDER DATA: Male PATIENT RELEVANT IMPLANT DATA REVIEWED: Yes RADIOLOGY DEPARTMENT: CT; Exam(s) Completed: Abdomen/Pelvis PERIPHERAL IV DATA: Not applicable SIGNED BY: LIZZ Harper January 06, 2018 1:10 PM CONSULT PROG Observed: 01/06/2018 Status: COMPLETED Source: [place] 10:03 AM [facility] REPOSITORY HNO ID: [id number] Author: Vincent Coe Service: Nephrology Author Type: Physician Type: Consult Progress Note Filed: 01/06/2018 6:30 PM Note Text: CONSULT PROGRESS NOTE NEPHROLOGY SERVICE SERVICE DATE: 01/06/2018 SERVICE TIME: 12:23 PM Subjective INTERVAL HISTORY: Patient still with lower extremity swelling. Patient seen during HD. Still edematous with no acute complaints MEDICATIONS: Current Medications Reviewed Objective PHYSICAL EXAM: BP 120/54 Pulse 76 Temp 36.9 ?C (98.4 ?F) (Oral) Resp 18 Ht 193 cm (6' 4) Wt 110.8 kg (244 lb 3.2 oz) SpO2 93% BMI 29.72 kg/m? Intake/Output Summary (Last 24 hours) at 01/06/18 1003 Last data filed at 01/06/18 0600 Gross per 24 hour Intake 430 ml Output 0 ml Net 430 ml Constitutional: No acute distress, Responsive, Normal habitus and Well-nourished Neck: Trachea midline Cardiovascular: Edema present: bilateral lower extremities Respiratory: Normal respiratory effort. Lungs clear bilaterally. Abdomen: Soft, non-tender, non-distended. Normal bowel sounds. No hepatosplenomegaly. Psychiatric: Alert and oriented x self, place, time, and setting Normal mood/affect Vascular Access: Hemodialysis catheter location: Right Nontunneled internal jugular. Exit site demonstrates: normal findings DATA: Diagnostic tests reviewed for today's visit: Most recent labs and imaging results. Recent Labs 01/06/1840601/05/18 0500 01/04/18 0431 01/03/18 0543 01/02/18 0527 NA 133* 134* 132* 135* 136 K 4.6 4.4 4.7 4.5 4.2 CHLOR 96* 98 96* 97 99 CO2 24 27 26 28 30 BUN 30* 22 37* 32* 23 CREAT 6.01* 4.81* 6.61* 5.58* 4.51* GLUC 82 85 86 82 83 ANION 13 9 10 10 7* CA 7.8* 7.7* 7.6* 7.6* 7.6* P 3.5 3.2 3.8 3.6 3.3 MG 1.9 1.8 1.8 1.8 1.8 Recent Labs 01/06/1840601/05/18 0500 01/04/18 0431 WBC 4.48 4.28 5.14 HB 7.3* 7.8* 7.9* HCT 23.1* 24.3* 24.3* PLT 91* 79* 80* Assessment/Plan 62 year old male with a PMH including A-fibb, s/p AVR, history of CVA, Fe deficiency anemia and hemolytic anemia presented to [facility] as a transfer from [facility] on 12/24. Initial presentation to OSH was due to suspected GI bleed. Patient had low Hg however no diagnostic findings on Colonoscopy, EGD or tagged RBC scan. Patient was transferred to [facility] upon worsening of renal function. 1. 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 -Patient also ANCA +, MPO +, dsDNA + -Concern for Bartonella being underlying cause of infection 2. Electrolytes -Hyponatremia at 134 3. Normocytic Anemia -Likely multifactorial cause including blood loss, hemolysis as well as acute renal failure -No concerning finding on BM bx. Hematology has signed off 5. Volume Overload. Edema likely also exacerbated by low albumin -Still with pitting edema on physical exam Agree PLAN 1. Continue current MWF IHD. To have 3500ml UF during todays HD session 2. Herring has been removed. Can do bladder scan q48 hours since patient has BPH Agree 3. Continue daily renal function panal 4. Renally dose medications Consent for HOSPICE ART THERAPIST: HOSPICE ART THERAPIST initiation date: 12/27/2017 Consent obtained and in EMR. This note has not been reviewed by attending physician. Plan not finalized until addendum is placed SIGNATURE: Yue Vargas MD PATIENT NAME: Frank Rivera DATE: January 04, 2018 TIME: 12:23 PM PAGER: [phone] Staff note: I interviewed and examined this patient myself and agree with the resident's/fellows/physican castings trimmer findings, impressions and plan. Patient seen on dialysis. Orders confirmed. Vincent Coe DO CONSULT Observed: 01/06/2018 Status: COMPLETED Source: [place] 9:09 AM [facility] REPOSITORY HNO ID: [id number] Author: Elmer Alarcon Service: Cardiac Surgery Author Type: Physician Type: Consults Filed: 01/18/2018 7:33 PM Note Text: CONSULT HISTORY and PHYSICAL CARDIOTHORACIC SURGERY Consulting Service: Cardiothoracic Surgery Opinion/advice regarding: Pre-Op Open Heart Surgery Cardiothoracic Physician: Cuauhtemoc Parker M.D. NAME: Frank Rivera HEIGHT: 193 cm WEIGHT: 110.8 kg Intended Procedure: REDO AVR TVR +/- MVR Removal of PPM system and leads REDO: 05/07/17: AVR (27mm [facility] Richi Trifecta pericardial valve) and RUDY ligation HPI: This is a 62 year old male who presents in consultation for an opinion regarding treatment options for concern of paravalvular endocarditis of the AV prosthesis + possible fistula/abscess + echodensity within the RA which may be either a vegetation or thrombus. His pertinent medical history consists of HTN, hypothyroidism, atrial fibrillation, aortic stenosis s/p AVR and RUDY (04/2017) c/b SSS required PPM insertion (05/13/2017), obesity s/p Min-en-Y bypass (1995) c/b recurrent GIB, ADRIANNE, B12 deficiency, who presented to [facility] on 12/24/17 with fatigue and shortness of breath from an OSH with IRINA and renal biopsy concerning for C3 nephropathy + hemolytic anemia requiring transfusions and initiation of dialysis secondary to hypoxemic respiratory failure and volume overload. A bone marrow biopsy to evaluate pancytopenia to rule out myeloma process; Was on apixaban, but this has been held. Currently, the patient is on the RNF in stable condition. Comorbidities include Afib w SSS s/p PPM, HTN, CVA, Heyd's Syndrome, Recurrent GIB, Anemia~2/2 malabsorbtion from Gastric bypass, IRINA, Lymphoadenopathy, Obesity, Malnutrition, Pancytopenia PAST MEDICAL HISTORY Diagnosis Date - Aortic stenosis - Atrial fibrillation (HCC) - CAD (coronary artery disease) of bypass graft - CVA, old, dysphagia - Heyd's syndrome (HCC) - History of Min-en-Y gastric bypass - HTN (hypertension) - Hx of sick sinus syndrome PAST SURGICAL HISTORY Procedure Laterality Date - CARPAL TUNNEL - DIALYSIS CATHETER PROCEDURE (W NOTE) 12/27/2017 - GASTRIC BYPASS, MIN-EN-Y 1995 - PERCUT AORTIC VALVE REPLACE 05/07/2017 FAMILY HISTORY Problem Relation Age of Onset - Ischemic Heart Disease Mother - other (hypothyroidism) Mother - Ischemic Heart Disease Father - Thyroid Cancer Sister FAMILY HISTORY OF CAD: Yes SOCIAL HISTORY: Social History Substance Use Topics - Smoking status: Current Every Day Smoker Types: Cigars, Cigarettes - Smokeless tobacco: Not on file Comment: States he quit cigarretes years ago 25 yr ppd previously, last had cigar in october - Alcohol use No MEDICATIONS: Prior to Admission Medications: atorvastatin (LIPITOR) 80 mg tablet Take 80 mg by mouth once daily. hydrALAZINE (APRESOLINE) 25 mg tablet Take 25 mg by mouth every 8 hours. ascorbic acid-ascorbate sodium 500 mg chew Take 500 mg by mouth once daily. levothyroxine (LEVOXYL) 200 mcg tablet Take 200 mcg by mouth daily before breakfast. magnesium oxide 200 mg magnesium tab Take 2 tablets by mouth once daily. metoprolol tartrate, short acting, (LOPRESSOR) 25 mg tablet Take 12.5 mg by mouth twice daily. ferrous sulfate 325 mg (65 mg iron) tablet Take 325 mg by mouth daily with breakfast. predniSONE (DELTASONE) 20 mg tablet Take 60 mg by mouth once daily. pantoprazole DR (PROTONIX) 20 mg tablet Take 40 mg by mouth twice daily. cyanocobalamin (VITAMIN B-12) 100 mcg tab Take 500 mcg by mouth once daily. apixaban (ELIQUIS) 5 mg tab(s) Take 5 mg by mouth twice daily. Current hospital medications: calcium carbonate 1,000 mg chewable tab(s) (TUMS) 1,000 mg ORAL/FEEDING TUBE 2 times per day vancomycin dosing and monitoring per pharmacy OTHER As Directed ldekrqkc-qhba-jqoon acid chewable tablet (CENTRUM) 1 tablet ORAL DAILY cholecalciferol 3,000 Units tab(s) (VITAMIN D3) 3,000 Units ORAL DAILY cyanocobalamin 500 mcg tab(s) (VITAMIN B-12) 500 mcg ORAL DAILY thiamine 100 mg tab(s) (VITAMIN B1) 100 mg ORAL DAILY senna-docusate 8.6-50 mg 1 tablet (SENNA-S) 1 tablet ORAL/FEEDING TUBE BID PRN polyethylene glycol 3350 17 g packet (MIRALAX, GLYCOLAX) 17 g ORAL DAILY PRN cefTRIAXone 2 g in D5W 100 mL MB+ (ROCEPHIN) 2 g INTRAVENOUS q 24 H gentamicin 100 mg in NaCl (iso-osmotic) 100 mL 100 mg INTRAVENOUS MO-WE-FR doxycycline hyclate 100 mg cap(s) (VIBRAMYCIN) 100 mg ORAL q 12 H vancomycin iv piggyback 1 g in D5W 200 mL (VANCOCIN) 1 g INTRAVENOUS MO-WE- diphenhydrAMINE 25 mg (BENADRYL) 25 mg ORAL q 6 H PRN sodium chloride 0.65 % 2 [place] (AYR, OCEAN) 2 [place] EACH NOSTRIL TID aspirin, enteric coated 81 mg tab(s) 81 mg ORAL DAILY metoprolol tartrate (short acting) 12.5 mg tab(s) (LOPRESSOR) 12.5 mg ORAL BID docusate sodium 100 mg cap(s) (COLACE) 100 mg ORAL BID sodium citrate 4% 3-6 mL catheter lock 3-6 mL INTRALUMINAL PRN tamsulosin ER 0.4 mg cap(s) (FLOMAX) 0.4 mg ORAL DAILY pantoprazole DR 40 mg tab(s) (PROTONIX) 40 mg ORAL BID levothyroxine 200 mcg tab(s) (SYNTHROID) 200 mcg ORAL BEFORE BREAKFAST DAILY atorvastatin 80 mg tab(s) (LIPITOR) 80 mg ORAL AT BEDTIME ALLERGIES: ALLERGIES Allergen Reactions - Penicillin Hives COMPLETE REVIEW OF SYSTEMS: Constitutional: Positive for fatigue, malaise and generalized weakness HEENT: Negative for frequent or significant headaches, No changes in hearing or vision, no nose bleeds or other nasal problems. +Dentures Resp: Positive for shortness of breath Cardiovascular: Positive for leg swelling and occ palpitations GI: + abdominal discomfort~rt lower quadrant pain , No blood in stools or black stools or change in bowel habits : No history of dysuria, frequency, or incontinence. IRINA Endo: Negative for cold or heat intolerance, polyuria, polydipsia and goiter Heme/Lymph: Negative for prolonged bleeding, bruising easily or swollen nodes Neurologic: Positive for CVA, mild residual right side facial droop. Integumentary: Negative for lesions, rash, and itching. Additional systems reviewed: Musculoskeletal: Positive for muscular weakness PHYSICAL EXAM: (8) BP 120/54 Pulse 76 Temp 36.9 ?C (98.4 ?F) (Oral) Resp 18 Ht 193 cm (6' 4) Wt 110.8 kg (244 lb 3.2 oz) SpO2 93% BMI 29.72 kg/m? Constitutional: Obese and No acute distress HEENT: PERRLA, EOM's intact and Dentures Resp: Decreased breath sounds Cardiovascular: Regular rate AND rhythm, No heaves, Murmur and S1, S2 normal GI: Soft, Non-tender and Bowel sounds present Integumentary: Warm and Dry Musculoskeletal: No deformities Neurological/Psychiatric: Oriented to time, place AND person Additional systems reviewed: No additional systems reviewed Labs: Invalid input(s): MBP Recent Labs 01/06/18 0407 01/05/18 0500 01/04/18 0431 WBC 4.48 4.28 5.14 HB 7.3* 7.8* 7.9* HCT 23.1* 24.3* 24.3* PLT 91* 79* 80* Recent Labs 01/06/18 0407 01/05/18 0500 01/04/18 0431 NA 133* 134* 132* K 4.6 4.4 4.7 CHLOR 96* 98 96* CO2 24 27 26 BUN 30* 22 37* CREAT 6.01* 4.81* 6.61* GLUC 82 85 86 No results found for this basename: chol,hdl,ldl DATA: I have personally reviewed the following data: Cardiac Catheterization: pending CHANDRAKANT: 01/01/2018: - The left ventricle is normal in size. Left ventricular systolic function is normal. EF = 60 ?5%. - The right ventricle is dilated. Right ventricular systolic function is mildly decreased. - The left atrial cavity is dilated. - Previous RUDY ligation. Small residual RUDY. - The right atrial cavity is dilated. - There is moderate (2+ - 3+) tricuspid valve regurgitation. 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 There is moderately severe (3+) aortic valve regurgitation due to paravalvular endocarditis. - There is no patent foramen ovale as detected by Doppler and saline contrast. - The Aortic valve prosthesis appears to be well seated with evidence of mild degeneration and without any obvious mobile echodensity on its leaflets. There is thickening of the Aorto-Mitral curtain and posterior LA wall which is suggestive of either hematoma or active infection. - There does not appear to be any transvalvular AI however there is a diastolic flow arising from the subvalvular region which may (Clip #47, #42) or may represent 3+ paravalvular regurgitation with a very eccentric jet. Consider Cardiac CT for better characterization and to r/o the presence of a fistula or abscess. - There is a a small mobile echodensity within the RA which may be attached either ?to the Venous catheter or the atrial portion of one of the pacemaker leads (1.2cm ?x 0.55 cm, Clip #28). This may represent vegetation or thrombus. TTE: 12/25/2017:- The left ventricle is moderately dilated. There is moderate concentric left ventricular hypertrophy. Left ventricular systolic function is normal. EF = 66 ? 5% (2D biplane) - The right ventricle is normal in size. Right ventricular systolic function is normal. - The left atrial cavity is severely dilated. - The right atrial cavity is dilated. - There is moderate (2+) mitral valve regurgitation. Thickened mitral valve leaflets. - There is moderate (2+ - 3+) tricuspid valve regurgitation. 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 There is moderately severe (3+) aortic valve regurgitation. The peak gradient is 39 mmHg, the mean gradient is 17 mmHg and the dimensionless valve index is 0.53. There is both valvular and paravalvular AI. There is flow reversal in the descending aorta. - Estimated right ventricular systolic pressure is?likely underestimated due to a weak or incomplete tricuspid regurgitation signal and is, at least, 70 mmHg consistent with moderately severe pulmonary hypertension. Estimated right atrial pressure is [address] of the ABD/pelvis: EVOLVING LARGE RECTUS SHEATH HEMATOMA, SLIGHTLY DECREASED IN SIZE SINCE 12/27/2017RESOLUTION OF LEFT PREVESICAL HEMATOMA CXR:Right IJ line mid SVC. Stable pacemaker. Lungs and Pleura: ?Bilateral effusions and overlying opacity similar to prior. No pneumothorax. Cardiomediastinal silhouette: ?Stable cardiac silhouette. Dental clearance: n/a EKG: Jan 05 2018 11:14:36 ? Diagnosis:SINUS RHYTHM WITH SINUS ARRHYTHMIA WITH OCCASIONAL PREMATURE VENTRICULAR ?COMPLEXES COMPLETE RIGHT BUNDLE BRANCH BLOCK ABNORMAL ECG Impression: This is a 62 year old year-old male, who is being evaluated for surgical intervention of paravalvular endocarditis of the AV prosthesis + possible fistula/abscess + echodensity within the RA which may be either a vegetation or thrombus. In consideration for surgery, the patient's acute and chronic medical issues have been evaluated as documented above and reviewed in the electronic medical record. Plan: Patient will be seen by the surgeon, Dr. Cuauhtemoc Parker M.D. for his surgical impression. We will need cardiac CT and brain imaging (recent stroke), PFT/DLCO (d/t smoking history) and will discuss if a repeat cardiac cath is necessary as a part of the evaluation. Anticipated Discharge Needs: TBD. These findings will be communicated back to the requesting provider electronically. SIGNATURE:Janae Cao APRN.CNP PAGER:[phone] Date of Service: January 06, 2018 Time of Service: 4:47 PM [facility] STAFF PHYSICIAN NOTE OF PERSONAL INVOLVEMENT IN CARE Patient is seen in consultation at the request of the above noted physician. I have reviewed the documentation above obtained and documented by the Nurse Practitioner. I have reviewed comorbidities, relevant tests noted above and updated the problem list as appropriate. I have personally participated in the hernandez component and physical exam and have discussed the case and management of the patient's care. On review of CHANDRAKANT, there is clearly moderately severe paravalvular AI; there is no obvious abscess present. His constellation of problems can certainly be explained by hemolysis from paravalvular AI. Based on my evaluation he is a candidate for Cardiac Surgery. Impression: Aortic Regurgitation, Subacute Bacterial Endocarditis and Tricuspid Insufficiency Plan: He will need chest CT without contrast, prior operative report, and prior LHC from before his cardiac surgery earlier this year. Redo, AV Replacement and TV Repair STAFF PHYSICIAN: Cuauhtemoc Parker MD DATE OF SERVICE: January 07, 2018 TIME OF SERVICE: 3:59 PM [facility] STAFF PHYSICIAN NOTE OF PERSONAL INVOLVEMENT IN CARE I have reviewed the documentation above obtained and documented by the Nurse Practitioner and Dr. Parker have reviewed and updated the problem list as appropriate. I have personally participated in the hernandez component and physical exam and have discussed the case and management of the patient's care. The following comments revise or confirm relevant hernandez components. HTN, hypothyroidism, atrial fibrillation, aortic stenosis s/p AVR and RUDY (04/2017) c/b SSS required PPM insertion (05/13/2017), obesity s/p Min-en-Y bypass (1995) c/b recurrent GIB, ADRIANNE, B12 deficiency. Comorbidities include Afib w SSS s/p PPM, HTN, CVA, Heyd's Syndrome, Recurrent GIB, Anemia~2/2 malabsorbtion from Gastric bypass, IRINA, Lymphoadenopathy, Obesity, Malnutrition, Pancytopenia. Stroke in October. Started on dialysis on this admission. Normal kidney function when he had his operation in May. Seen by JOHN Olivas ASSESSMENT: 62-year-old with multiple medical problems including but not limited to atrial fibrillation, hypertension, and aortic stenosis status post aortic valve replacement in April 2017 with a permanent pacemaker placed shortly thereafter was transferred to our hospital on 12/24 for further evaluation of an acute kidney injury. He initially presented to an outside hospital on 12/19 for further evaluation of a new anemia and renal failure after presenting to his primary care physician with fatigue and shortness of breath. He was treated empirically with prednisone for a glomerular nephritis and transferred. 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 He is requiring renal replacement therapy. Notable aspects of his workup thus far from infectious disease perspective has included: 2 blood cultures 12/25-no growth to date Bartonella serologies-IgG for Bartonella henselae greater than 1:1024, IgG for Bartonella amato 1:1024 Transesophageal echocardiogram 01/01-2-3+ TR, 3+ AI, thickening of the aorto-mitral curtain and posterior LA wall suggestive of either hematoma or active infection, small mobile echodensity within the RA-vegetation versus thrombus CT chest cardiac 01/07-moderate diffuse leaflet calcification CT brain 01/07-no acute findings CT abdomen and pelvis 01/06-evolving large rectus sheath hematoma 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 Interestingly, despite his titers he has no obvious epidemiological length to this genus. He continues to require renal replacement therapy. He is being considered for open heart surgery. ?RECOMMENDATIONS: Continue doxycycline-change to 100 mg IV every 12 hours Stop gentamicin Start ceftriaxone 2 g IV every 24 hours No infectious disease contraindication open heart surgery Monitoring for ongoing therapeutic and potential untoward effect of antibiotic therapy. Dr. Mena available over the weekend. I will return on Thursday. Signature: Rohit Olivas MD I have reviewed of CHANDRAKANT, and agree with Dr. Parker there is clearly moderately severe paravalvular AI and that there is no obvious abscess present. His constellation of problems can certainly be explained by hemolysis from paravalvular AI. CT abdomen IMPRESSION: RECTUS HEMATOMA, WITH STABLE CRANIOCAUDAD DIMENSION BUT SLIGHT DIFFERENCE IN AXIAL CONFIGURATION, DESCRIBED. ?THIS MAY BE FROM SIMPLE MATURATION/REDISTRIBUTION OR FROM MILD NEW RIGHT-SIDED HEMORRHAGE. STABLE ENLARGED PARACELIAC LYMPH NODE. Seen by vascular medicine STAFF PHYSICIAN: ROSEANNE LockeCHS STAFF PHYSICIAN NOTE OF PERSONAL INVOLVEMENT IN CARE 62 y/o man with history of aortic stenosis status post bioprosthetic AVR, atrial fibrillation on long-term anticoagulation who was admitted with worsening renal dysfunction. 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 In late November was noted to be anemic and underwent workup to look for GI source of blood loss, which was unrevealing. Transferred here early December; complained of left lower quadrant pain and noted on imaging to have left-sided rectus sheath hematoma. This was stable/improving, then yesterday he noted sensation across the lower quadrant. Repeat imaging showed question of whether the hematoma expanded, versus evolution of the bleed. We are asked to comment on bleeding risk if he gets a bolus of heparin in the OR while on cardiopulmonary bypass. Unfortunately, it is impossible to define this risk. I think benefits of surgery (replacing infected dysfunctional valve) outweigh the bleeding risks, but it is possible he could bleed. Fortunately, heparin is reversed at the end of the case, which means bleeding can be managed. We discussed with the patient the fact that it's difficult to quantify the risks in his particular case. I have reviewed the documentation obtained and documented by Dr. Lu and have reviewed and updated the problem list as appropriate. I have personally performed a szca-bh-[id number] assessment of the patient and I have discussed the case and management of the patient's care. ? Reviewed outside cardiac cath from before his heart surgery which showed normal coronaries. CHANDRAKANT 01-03-18 CONCLUSIONS: - Exam indication: ?Endocarditis - The left ventricle is normal in size. Left ventricular systolic function is normal. EF = 60 ? 5% (visual est.) - The right ventricle is dilated. Right ventricular systolic function is mildly decreased. - The left atrial cavity is dilated. - Previous RUDY ligation. Small residual RUDY. - The right atrial cavity is dilated. - There is moderate (2+ - 3+) tricuspid valve regurgitation. 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 There is moderately severe (3+) aortic valve regurgitation due to paravalvular endocarditis. - There is no patent foramen ovale as detected by Doppler and saline contrast. - The Aortic valve prosthesis appears to be well seated with evidence of mild degeneration and without any obvious mobile echodensity on its leaflets. There is thickening of the Aorto-Mitral curtain and posterior LA wall which is suggestive of either hematoma or active infection. - There does not appear to be any transvalvular AI however there is a diastolic flow arising from the subvalvular region which may (Clip #47, #42) or may represent 3+ paravalvular regurgitation with a very eccentric jet. Consider Cardiac CT for better characterization and to r/o the presence of a fistula or abscess. - There is a a small mobile echodensity within the RA which may be attached either ?to the Venous catheter or the atrial portion of one of the pacemaker leads (1.2cm ?x 0.55 cm, Clip #28). This may represent vegetation or thrombus. ? - Exam was compared with the prior CC echocardiographic exam performed on 12/25/2017. Thrombus/Vegetation on pacemaker lead/venous catheter and possible paralvalvular leak. Results for FRANK RIVERA ( ) as of 01/18/2018 18:57 Ref. Range 01/08/2018 05:13 PT Sec Latest Ref Range: 9.7 - 13.0 sec 13.1 (H) PT INR Latest Ref Range: 0.9 - 1.3 1.3 APTT Latest Ref Range: 23.0 - 32.4 sec 33.5 (H) Based on my evaluation he is moderate risk for Cardiac Surgery. Impression: Aortic Regurgitation, Subacute Bacterial Endocarditis and Tricuspid Insufficiency Plan: Redo, Aortic Valve Replacement and Tricuspid Valve Repair and removal of pacemakersystem, possibly placement of epicardial leads and new pacemaker. STAFF PHYSICIAN: Elmer Alarcon MD DATE OF SERVICE: January 18, 2018 TIME OF SERVICE: 6:54 PM PROGRESS Observed: 01/06/2018 Status: COMPLETED Source: [place] 7:20 AM [facility] REPOSITORY [facility] ID: [id number] Author: Cintia Wiley Service: Hospital Medicine Author Type: Physician Type: Progress Notes Filed: 01/06/2018 5:04 PM Note Text: INPATIENT PROGRESS NOTE ATTENDING: Cintia Wiley SERVICE DATE: 01/06/2018 SERVICE TIME: 7:30 AM For questions regarding this patient, please page [phone] during 7 a.m. - 5 p.m. After 5 p.m., please page on-call Adrien pager [phone] for concerns. Brief Plan - called [facility] for outside CHANDRAKANT records - CTS consulted, likely transfer to Cardiology floor for pre- op eval - pt complaining of RLQ pain --> given tylenol, pending CT abd/pelvis - continue hemodialysis (-) as per nephrology recommendations - Monitor H/H and transfuse Hg < 7 mg/dL or platelets < 50 - Appreciate ID recommendations - they are awaiting CHANDRAKANT from [facility]. Pending bartonella PCR and serology. 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 - Continue IV Ceftriaxone 2g QD, 100mg MWF after dialysis, oral Doxycycline 100mg BID, vancomycin 1g MWF after dialysis - Follow up on pathology review of BM slides. Interval History No acute events overnight. Doing well this morning. Denies any symptoms, no fever, chills, no shortness of breath. IV Lasix 120mg x 1 challenge 01/03 overnight -- minimal increase in UOP Physical Exam BP 120/54 Pulse 76 Temp 36.9 ?C (98.4 ?F) (Oral) Resp 18 Ht 193 cm (6' 4) Wt 110.8 kg (244 lb 3.2 oz) SpO2 93% BMI 29.72 kg/m? -I/O: Intake/Output Summary (Last 24 hours) at 01/06/18 0720 Last data filed at 01/06/18 0600 Gross per 24 hour Intake 830 ml Output 0 ml Net 830 ml GENERAL: Alert, no distress, cooperative SKIN: Skin color, texture, turgor normal. No rashes or lesions. LUNGS: CTAB CARDIAC: Murmur 2/6, systolic, right upper sternal border ABDOMEN: Soft, non-distended, LLQ tenderness, +BS EXTREMETIES: No ulcers, 1-2+ pitting edema to knees NEURO: Alert, oriented X 3.?motor exam grossly normal. Sensation grossly intact., Cranial nerves II-XII intact PULSES: 2+ radial Medications Current hospital medications: calcium carbonate 1,000 mg chewable tab(s) (TUMS) 1,000 mg ORAL/FEEDING TUBE 2 times per day vancomycin dosing and monitoring per pharmacy OTHER As Directed [id number]-[id number] acid chewable tablet (CENTRUM) 1 tablet ORAL DAILY cholecalciferol 3,000 Units tab(s) (VITAMIN D3) 3,000 Units ORAL DAILY cyanocobalamin 500 mcg tab(s) (VITAMIN B-12) 500 mcg ORAL DAILY thiamine 100 mg tab(s) (VITAMIN B1) 100 mg ORAL DAILY senna-docusate 8.6-50 mg 1 tablet (SENNA-S) 1 tablet ORAL/FEEDING TUBE BID PRN polyethylene glycol 3350 17 g packet (MIRALAX, GLYCOLAX) 17 g ORAL DAILY PRN cefTRIAXone 2 g in D5W 100 mL MB+ (ROCEPHIN) 2 g INTRAVENOUS q 24 H gentamicin 100 mg in NaCl (iso-osmotic) 100 mL 100 mg INTRAVENOUS MO-WE-FR doxycycline hyclate 100 mg cap(s) (VIBRAMYCIN) 100 mg ORAL q 12 H vancomycin iv piggyback 1 g in D5W 200 mL (VANCOCIN) 1 g INTRAVENOUS MO-WE-FR diphenhydrAMINE 25 mg (BENADRYL) 25 mg ORAL q 6 H PRN sodium chloride 0.65 % 2 [place] (AYR, OCEAN) 2 [place] EACH NOSTRIL TID aspirin, enteric coated 81 mg tab(s) 81 mg ORAL DAILY metoprolol tartrate (short acting) 12.5 mg tab(s) (LOPRESSOR) 12.5 mg ORAL BID docusate sodium 100 mg cap(s) (COLACE) 100 mg ORAL BID sodium citrate 4% 3-6 mL catheter lock 3-6 mL INTRALUMINAL PRN tamsulosin ER 0.4 mg cap(s) (FLOMAX) 0.4 mg ORAL DAILY pantoprazole DR 40 mg tab(s) (PROTONIX) 40 mg ORAL BID levothyroxine 200 mcg tab(s) (SYNTHROID) 200 mcg ORAL BEFORE BREAKFAST DAILY atorvastatin 80 mg tab(s) (LIPITOR) 80 mg ORAL AT BEDTIME Labs CBC: Recent Labs 01/06/18 0407 01/05/18 0500 01/04/18 0431 01/03/18 0543 01/02/18 0527 01/01/18 0500 12/31/17 1349 12/31/17 0425 WBC 4.48 4.28 5.14 4.56 3.58* 3.71 3.46* 3.42* HB 7.3* 7.8* 7.9* 8.1* 8.2* 8.2* 7.3* 6.9* HCT 23.1* 24.3* 24.3* 25.2* 26.2* 24.4* 22.5* 20.9* PLT 91* 79* 80* 76* 72* 73* 67* 66* MCV 94.7 96.0 93.8 94.4 96.3 93.5 94.1 93.7 RDWCV 17.1* 17.2* 17.2* 17.2* 17.4* 17.7* 18.1* 17.8* NEUTP 62.0 61.0 64.9 63.3 55.9 62.5 -- 63.4 ABSNEUT 2.78 2.60 3.32 2.89 1.98 2.32 -- 2.16 LYMPHP 27.2 29.2 25.5 25.9 33.8 27.5 -- 27.2 MONOP 9.2 8.4 8.2 9.2 9.2 8.9 -- 8.2 EODINP 0.9 0.7 0.6 0.9 0.8 0.8 -- 0.9 BMP: Recent Labs 01/06/1840601/05/18 0500 01/04/181 01/03/18 0543 01/02/18 0501/01/18 0500 12/31/17 0425 GLUC 82 85 86 82 83 82 83 NA 133* 134* 132* 135* 136 134* 137 K 4.6 4.4 4.7 4.5 4.2 4.3 3.9 CHLOR 96* 98 96* 97 99 96* 101 CO2 24 27 26 28 30 25 29 ANION 13 9 10 10 7* 13 7* BUN 30* 22 37* 32* 23 31* 22 CREAT 6.01* 4.81* 6.61* 5.58* 4.51* 5.38* 3.92* CHEM: Recent Labs 01/06/1840601/05/18 0500 01/04/181 01/03/18 0543 01/02/18 0501/01/18 0500 12/31/17 042 CA 7.8* 7.7* 7.6* 7.6* 7.6* 7.7* 7.2* MG 1.9 1.8 1.8 1.8 1.8 1.9 1.8 HEPATIC: No results for input(s): ALKPHOS, ALT, AST, TBILI, LIPASE in the last 168 hours. COAG: Recent Labs 12/31/17 1349 INR 1.4* URINALYSIS:No results for input(s): PH, SPGR, UGLUC, UBILI, UKET, UHB, UPROT, UROBIL, UWBC, SSA in the last 168 hours. Invalid input(s): NITR CARDIAC: No results for input(s): CKTEST, CKMB, CKMBP, TROPT, PBNP in the last 168 hours. Imaging ECHO TRANSESOPHAGEAL 01/01/2018 - Exam indication: ?Endocarditis - The left ventricle is normal in size. Left ventricular systolic function is normal. EF = 60 ? 5% (visual est.) - The right ventricle is dilated. Right ventricular systolic function is mildly decreased. - The left atrial cavity is dilated. - Previous RUDY ligation. Small residual RUDY. - The right atrial cavity is dilated. - There is moderate (2+ - 3+) tricuspid valve regurgitation. 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 There is moderately severe (3+) aortic valve regurgitation due to paravalvular endocarditis. - There is no patent foramen ovale as detected by Doppler and saline contrast. - The Aortic valve prosthesis appears to be well seated with evidence of mild degeneration and without any obvious mobile echodensity on its leaflets. There is thickening of the Aorto-Mitral curtain and posterior LA wall which is suggestive of either hematoma or active infection. - There does not appear to be any transvalvular AI however there is a diastolic flow arising from the subvalvular region which may (Clip #47, #42) or may represent 3+ paravalvular regurgitation with a very eccentric jet. Consider Cardiac CT for better characterization and to r/o the presence of a fistula or abscess. - There is a a small mobile echodensity within the RA which may be attached either ?to the Venous catheter or the atrial portion of one of the pacemaker leads (1.2cm ?x 0.55 cm, Clip #28). This may represent vegetation or thrombus. - Exam was compared with the prior echocardiographic exam performed on 12/25/2017. Thrombus/Vegetation on pacemaker lead/venous catheter and possible paralvalvular leak. XR CHEST 1V FRONTAL 12/27/2017 Lines, Tubes, and Devices: ?Right IJ line mid SVC. Stable pacemaker. Lungs and Pleura: ?Bilateral effusions and overlying opacity similar to prior. No pneumothorax. Cardiomediastinal silhouette: ?Stable cardiac silhouette. ? CT ABD/PEL WO IVCON 12/27/2017 LARGE LEFT RECTUS SHEATH HEMATOMA, STABLE OR SLIGHTLY INCREASED IN SIZE SINCE 12/25/2017. 3.3 CM ROUND LOW-ATTENUATION LESION ADJACENT TO THE CELIAC AXIS WHICH MAY BE AN ENLARGED LYMPH NODE. CHOLELITHIASIS WITHOUT EVIDENCE CHOLECYSTITIS. HEPATIC STEATOSIS. ? US ABD RT UPPER QUADRANT AND SPLEEN 12/26/2017 CHOLELITHIASIS IN A DISTENDED GALLBLADDER WITHOUT OTHER EVIDENCE OF ACUTE CHOLECYSTITIS. DIFFUSE HEPATIC STEATOSIS. The craniocaudal length of the spleen is 10.1 cm, normal. There are no splenic lesions. ? CT ABD/PEL WO IVCON 12/25/2017 Moderate LEFT rectus sheath hematoma Diffuse hepatic steatosis. 2.6 cm low-attenuation structure abutting the celiac, possibly an enlarged lymph node. ?Further evaluation with contrast-enhanced study should be considered. Cholelithiasis without evidence of acute cholecystitis. ? LEG DVT JORGE LUIS BOBBY 12/25/2017 RIGHT SIDE - DEEP VEINS Negative for acute deep vein thrombosis. Thickened [place], patent distal external iliac vein and common femoral vein. Only segments visualized of the posterior tibial veins and peroneal veins. Multiple enlarged lymph nodes noted in the right groin with the largest measuring aproximately: 1.4 x 1.5 x 0.9 cm. RIGHT SIDE - SUPERFICIAL VEINS Thickened redmond, patent great saphenous?vein. LEFT SIDE - DEEP VEINS Only segments visualized of the posterior tibial veins and peroneal veins. Multiple enlarged lymph nodes noted in the right groin with the largest measuring aproximately: 2.3 x 1.8 x 0.7 cm. 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 ? XR CHEST 1V FRONTAL Lines, tubes, and devices: ?The patient is status post median sternotomy and left 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 clip placement. ?Left pacemaker device is in place with leads in the right atrium and the right ventricle. ?Surgical clips overlie the upper abdomen. Lungs and pleura: ?Patchy reticular opacities are noted, likely related to pulmonary edema. Hazy opacity overlying the right lung base is likely related to small right pleural effusion and adjacent atelectasis/consolidation. ?Also noted is trace left pleural effusion. ?A vertically oriented lucency overlying the right lower chest is favored to be a skinfold. Cardiomediastinal silhouette: ?Cardiac silhouette is enlarged with pulmonary venous congestion. ? ECHO 12/25/2017 - Technically difficult exam due to suboptimal positioning. - Exam indication: Initial evaluation of Heart Failure - The left ventricle is moderately dilated. There is moderate concentric left ventricular hypertrophy. Left ventricular systolic function is normal. EF = 66 ? 5% (2D biplane) - The right ventricle is normal in size. Right ventricular systolic function is normal. - The left atrial cavity is severely dilated. - The right atrial cavity is dilated. - There is moderate (2+) mitral valve regurgitation. Thickened mitral valve leaflets. - There is moderate (2+ - 3+) tricuspid valve regurgitation. 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 There is moderately severe (3+) aortic valve regurgitation. The peak gradient is 39 mmHg, the mean gradient is 17 mmHg and the dimensionless valve index is 0.53. There is both valvular and paravalvular AI. There is flow reversal in the descending aorta. - Estimated right ventricular systolic pressure is?likely underestimated due to a weak or incomplete tricuspid regurgitation signal and is, at least, 70 mmHg consistent with moderately severe pulmonary hypertension. Estimated right atrial pressure is 15 mmHg. - The patient has not had a prior CC echocardiographic exam for comparison. Assessment and Plan Mr. 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 MICU transfer to initiate dialysis secondary to volume overload. Patient is now anuric IRINA-D. 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 ? 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 - No evidence of pathologic lesion, blood cultures have been negative, has CHANDRAKANT positive for IE, no evidence of abscess, concerns that prior CVA/TIA were 2/2 mycotic aneurysm (no brain MRI performed to date, unable to be performed due to ESRD), and that IRINA is immunologic phenomena secondary to IE - By Zabala criteria, possible if no mycotic aneurysm, definite if mycotic aneurysm (or if +Bartonella serology) - Afebrile, HDS, negative blood cultures, no leukocytosis Plan: - Appreciate ID recs: they are awaiting CHANDRAKANT from OSH - f/u Bartonella serologies - Appreciate cardiology recs, ordered cardiac CT scan, will attempt to coordinate dialysis - Started on antibiotics as follows: IV Ceftriaxone 2g QD IV Gentamicin 300mg loading dose, 100mg MWF after dialysis Oral Doxycycline 100mg BID Vancomycin 1.5g loading dose, 1g MWF after dialysis #Pancytopenia #Hemolytic anemia Presented with fatigue, shortness of breath History of UGIB secondary to Min-en-Y (most recently 2015), OSH EGD/C-scope/tagged RBC scan showed no evidence of bleed Requiring pRBC transfusion x 3 during this hospitalization Concerns for hemolytic process, not Petar driven--peripheral smear showed evidence of scant schistocytes, yojana cells, rare spherocytes, thrombocytopenia. ?Elevated Igs, will try to continue to workup lymphoproliferative process as potential etiology Plan: - Transfuse Hgb < 7, Plts < 50 ? #Atrial fibrillation S/p PPM for sick sinus syndrome Metoprolol 12.5mg BID home dose held for acute anemia, which has now stabilized HR in 80s-low 100s, HDS Plan: -Hold apixaban?for rectus sheath hematoma, will trial with heparin gtt, if tolerates, -Continue metoprolol 12.5mg BID -Tele ? #Rectus sheath hematoma Last imaging 12/27/17 showed 20 x 8.7 x 6.7 cm left rectus sheath hematoma, unclear etiology Plan: -Daily CBC -hold off AC for now, unlikely he would resume back Eliquis due to kidney dysfunction #Lymphadenopathy 3.3 x 2.9cm ?LN in celiac region, concern by Hematology for possible lymphoproliferative disorder Plan: -Hold on LN biopsies at this point -Appreciate ID recs. Follow up bartonella testing #IRINA-D, non-oliguric P/w fatigue, SOB, SCr 4.1 (b/l 1.0 in 10/2017) C/b volume overload, NAGMA, hyperphosphatemia Unclear etiology, per OSH renal biopsy report, C3 and IgM mesangium deposits, one of 28 glomeruli had crescent (?TMA), low C3, p-ANCA+ but MPO unremarkable NTDC placed 12/27/17 for volume overload, improving Plan:? - continue IHD - continue sodium bicarbonate 650mg TID - daily BMP - f/u Nephrology recs ? #CAD - continue atorvastatin 80mg qHS ? #Mild protein-calorie malnutrition - nutritional support ? #Hypothyroidism -Continue levothyroxine 200mcg qAM ? 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 Diet: Renal DVT PPx: IPCs GI PPx: Pantoprazole 40mg qDay Fran Garner MD, MBA MS Internal Medicine [address] [address] [email or web address] Pager #: [phone] Note: These recommendations are not final until staffed by provider For questions regarding this patient, please page [phone] during 7 a.m. - 5 p.m. After 5 p.m., please page on-call Adrien pager [phone] for concerns. [facility] STAFF PHYSICIAN NOTE OF PERSONAL INVOLVEMENT IN CARE I have reviewed the progress note obtained and documented by the resident and I personally participated in the hernandez components. I have discussed the case and management of the patient's care. The following comments revise or confirm relevant hernandez components of their note. 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 ? He also had a bone marrow biopsy to evaluate pancytopenia to rule out myeloma process. ?This is being reviewed by our pathologists now (requested tissue block) ? Hospital course complicated by need for red cell and platelet transfusion as well as spontaneous rectus sheath hematoma,?required CVVHD and then hemodialysis for hypoxemic respiratory failure and volume overload requiring MICU stay. ? 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 paravalvular leak with ? abscess/IE per hotel housekeeper, not entirely sure this represents IE, asked for CHANDRAKANT from 05/2017 from OSH ? Seen in dialysis unit today, complaining of right groin pain similar to when they found the bleeding last time, reports left groin pain is improving.VSS. ? ? Plan: CT abd to r/o RP bleed hemodialysis per nephrology bartonella serologies (to be sent today 01/05) Blood cultures follow up antibiotics for presumed prosthetic valve endocarditis Appreciate consult teams input, discussed with ID and consulted Cardiothoracic surgery Cintia Wiley MD (Nieves Souza) [facility] Medicine Department Pager [phone] 01/06/2018 4:57 PM ? CBC AND DIFFERENTIAL Collected: 01/06/2018 Status: F Source: [facility] 4:07 AM [facility] REPOSITORY TYPE CODE TESTS RESULT OUT OF REFERENCE UNITS RANGE LAB WBC 3.70-11.00 k/uL WBC 4.48 LAB RBC 4.20-6.00 m/uL Low RBC 2.44 LAB HGB 13.0-17.0 g/dL Low Hemoglobin 7.3 LAB HCT 39.0-51.0 % Low Hematocrit 23.1 LAB MCV 80.0-100.0 fL MCV 94.7 LAB MCH 26.0-34.0 pG MCH 29.9 LAB MCHC 30.5-36.0 g/dL MCHC 31.6 LAB RDWCV 11.5-15.0 % RDW-CV High 17.1 LAB PLTCT 150-400 k/uL Low Platelet Count 91 Result Comment: No clot detected. LAB MPV 9.0-12.7 fL MPV 10.7 LAB ANEUT % Neut% 62.0 LAB AANEUT 1.45-7.50 k/uL Abs Neut 2.78 LAB ALYMP % Lymph% 27.2 LAB AALYMP 1.00-4.00 k/uL Abs Lymph 1.22 LAB AMONO % Pope% 9.2 LAB AAMONO <0.87 k/uL Abs Pope 0.41 LAB AEOS % Eosin% 0.9 LAB AAEOS <0.46 k/uL Abs Eosin 0.04 LAB ABASO % Baso% 0.7 LAB AABASO <0.11 k/uL Abs Baso 0.03 LAB AUNRBC 0 /100 WBC NRBCs 0.0 LAB ABNRBC <0.01 k/uL Absolute nRBC <0.01 LAB DTYP DTYPE Auto Diff Performed By: #### CBCDIF, BMP, MG1, PHOS #### [facility] [address] [place] [address] [place], [place] [address] BASIC METABOLIC PANL Collected: 01/06/2018 Status: F Source: [facility] 4:07 AM [facility] REPOSITORY TYPE CODE TESTS RESULT OUT OF REFERENCE UNITS RANGE LAB GLU 74-99 mg/dL Glucose 82 Result Comment: The [place] Diabetes Association (ADA) provides guidance for cutoff values for fasting glucose and random glucose. The ADA defines fasting as no caloric intake for at least 8 hours. Fas ting plasma glucose results between 100 to 125 mg/dL indicate increased risk for diabetes (prediabetes). Fasting plasma glucose results greater than or equal to 126 mg/dL meet the criteria for diagnosis of diabetes. In the absence of unequivocal hyperglycemia, results should be confirmed by repeat testing. In a patient with classic symptoms of hyperglycemia or hyperglycemic crisis, random plasma glucose results greater than or equal to 200 mg/dL meet the criteria for diagnosis of diabetes. Reference: Standards of Medical Care in Diabetes 2016, [place] Diabetes Association. Diabetes Care. 2016.39(Suppl 1). LAB BUN 9-24 mg/dL BUN High 30 LAB CRET 0.73-1.22 mg/dL Creatinine High 6.01 LAB NA 136-144 mmol/L Low Sodium 133 LAB K 3.7-5.1 mmol/L Potassium 4.6 LAB CL 97-105 mmol/L Low Chloride 96 LAB CO2 22-30 mmol/L CO2 24 LAB AGAP 9-18 mmol/L Anion Gap 13 LAB CA 8.5-10.2 mg/dL Low Calcium, Total 7.8 LAB GFRAA eGFR- Amer. 12 LAB GFRNAA . eGFR-All Other Races 10 Result Comment: eGFR (Estimated GFR) Units of measure: mL/min/1.73 meters squared eGFR is derived from the reexpressed MDRD Study equation using the following parameters: serum creatinine, age, gender and race. The creatinine assay has been calibrated to be traceable to IDMS. An eGFR <60 mL/min/1.73m2 for >3 months is consistent with chronic kidney disease. Refer to KDOQI guidelines for clinical interpretation. In patients with unstable renal function, e.g. those with acute kidney injury, the eGFR may not accurately reflect actual GFR. Performed By: #### CBCDIF, BMP, MG1, PHOS #### [facility] [employer] [address] [place] [address] MAGNESIUM Collected: 01/06/2018 Status: F Source: [place] 4:07 AM [facility] REPOSITORY TYPE CODE TESTS RESULT OUT OF REFERENCE UNITS RANGE LAB MG 1.7-2.3 mg/dL Magnesium 1.9 Performed By: #### CBCDIF, BMP, MG1, PHOS #### [facility] [employer] [address] [place] [address] PHOSPHORUS Collected: 01/06/2018 Status: F Source: [place] 4:07 AM [facility] REPOSITORY TYPE CODE TESTS RESULT OUT OF REFERENCE UNITS RANGE LAB PHOS 2.7-4.8 mg/dL Phosphorus 3.5 Performed By: #### CBCDIF, BMP, MG1, PHOS #### [facility] [employer] [facility] [place] [address] TYPE AND SCREEN Collected: 01/06/2018 Status: F Source: [facility] 4:07 AM [facility] REPOSITORY TYPE CODE TESTS RESULT OUT OF REFERENCE UNITS RANGE LAB %ABR A ABO/RH(D) POSITIVE LAB % Antibody NEG Screen Performed By: #### TSCR #### [place] [address] NURSING PROG Observed: 01/06/2018 Status: COMPLETED Source: [facility] 3:51 AM [facility] REPOSITORY HNO ID: [id number] Author: Ahmet (Rn) DIEUDONNE Evans Service: Nursing Author Type: Registered Nurse Type: Nursing Progress Note Filed: 01/06/2018 3:52 AM Note Text: Nursing Progress Note Patient Name: Frank Rivera Patient Location: H081 [id number]/[id number] Event(s) / Intervention Note: The patient was observed having the following problems: 12 beat run of VTACH, not symptomatic. The time of the event occurred at: 0346. The following intervention(s) were initiated: [place] [id number]. Strip printed and added into chart. After the initiated interventions, the following observation(s) were made: patient has no complaints.. This note was completed by: Ahmet Evans RN PROGRESS Observed: 01/05/2018 Status: COMPLETED Source: [place] 12:23 PM [facility] REPOSITORY O ID: [id number] Author: Gee Ruiz Service: Infectious Disease Author Type: Physician Type: Progress Notes Filed: 01/05/2018 5:05 PM Note Text: PROGRESS NOTE INFECTIOUS DISEASE SERVICE DATE: 01/05/2018 SERVICE TIME: 12:30 Subjective Interval Events: Patient is denying any SOB or CP. Still waiting for his OSH CHANDRAKANT done in May 2017. ROS: 6 systems were reviewed and negative apart from the above Medications: Current hospital medications: calcium carbonate 1,000 mg chewable tab(s) (TUMS) 1,000 mg ORAL/FEEDING TUBE 2 times per day vancomycin dosing and monitoring per pharmacy OTHER As Directed bboqbxln-kbcj-qybnx acid chewable tablet (CENTRUM) 1 tablet ORAL DAILY cholecalciferol 3,000 Units tab(s) (VITAMIN D3) 3,000 Units ORAL DAILY cyanocobalamin 500 mcg tab(s) (VITAMIN B-12) 500 mcg ORAL DAILY thiamine 100 mg tab(s) (VITAMIN B1) 100 mg ORAL DAILY senna-docusate 8.6-50 mg 1 tablet (SENNA-S) 1 tablet ORAL/FEEDING TUBE BID PRN polyethylene glycol 3350 17 g packet (MIRALAX, GLYCOLAX) 17 g ORAL DAILY PRN cefTRIAXone 2 g in D5W 100 mL MB+ (ROCEPHIN) 2 g INTRAVENOUS q 24 H gentamicin 100 mg in NaCl (iso-osmotic) 100 mL 100 mg INTRAVENOUS MO-WE-FR doxycycline hyclate 100 mg cap(s) (VIBRAMYCIN) 100 mg ORAL q 12 H vancomycin iv piggyback 1 g in D5W 200 mL (VANCOCIN) 1 g INTRAVENOUS MO-WE-FR diphenhydrAMINE 25 mg (BENADRYL) 25 mg ORAL q 6 H PRN sodium chloride 0.65 % 2 [place] (AYR, OCEAN) 2 [place] EACH NOSTRIL TID aspirin, enteric coated 81 mg tab(s) 81 mg ORAL DAILY metoprolol tartrate (short acting) 12.5 mg tab(s) (LOPRESSOR) 12.5 mg ORAL BID docusate sodium 100 mg cap(s) (COLACE) 100 mg ORAL BID sodium citrate 4% 3-6 mL catheter lock 3-6 mL INTRALUMINAL PRN tamsulosin ER 0.4 mg cap(s) (FLOMAX) 0.4 mg ORAL DAILY pantoprazole DR 40 mg tab(s) (PROTONIX) 40 mg ORAL BID levothyroxine 200 mcg tab(s) (SYNTHROID) 200 mcg ORAL BEFORE BREAKFAST DAILY atorvastatin 80 mg tab(s) (LIPITOR) 80 mg ORAL AT BEDTIME Current Antibiotics: Doxy 01/01- Utgpqeqdys75/12- Vancomycin 01/04- Cefepime 01/04- Objective Physical Exam: Temp (24hrs), Av.8 ?C (98.3 ?F), Min:36.7 ?C (98 ?F), Max:37.1 ?C (98.7 ?F) Temp (120hrs), Av.7 ?C (98.1 ?F), Min:36.3 ?C (97.3 ?F), Max:37.2 ?C (99 ?F) GENERAL APPEARANCE: sitting up in the chair. NECK: left upper chest pacemaker. LUNGS: decreased sounds at the bases. HEART: Regular; diastolic murmur. ABDOMEN: Soft, non tender, no palpable masses, normal bowel sounds. EXTREMITIES: 2+ edema. NEURO: Awake, alert and oriented x3, no involuntary motions. Lab data: WBC (k/uL) Date Value 01/05/2018 4.28 01/04/2018 5.14 01/03/2018 4.56 01/02/2018 3.58 01/01/2018 3.71 Platelet Count (k/uL) Date Value 01/05/2018 79 01/04/2018 80 01/03/2018 76 01/02/2018 72 01/01/2018 73 Creatinine (mg/dL) Date Value 01/05/2018 4.81 01/04/2018 6.61 01/03/2018 5.58 01/02/2018 4.51 01/01/2018 5.38 AST (U/L) Date Value 12/27/2017 32 ALT (U/L) Date Value 12/27/2017 22 Microbiology data: *reviewed. Impression/Recommendations 62 yo gentleman with a h/o AVR (pericardial valve at [facility]) for on 05/07/2017, A-fib and SSS s/p PPM, and Min-en-Y gastric bypass 1996. ? 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 Patient had evidence of severe malfuntioning of aortic PV, highly suspicious for PVE. Endocarditis has been the most common infection associated with renal failure and C3+ crescentic GN. Among them, Staph and bartonella are commonly associated with PVE. Blood culture are negative. Bartonella is considered the MC cause of blood culture negative PVE. ? RECOMMENDATIONS: 1. Await CHANDRAKANT images from [facility] to compare with Cardiology team. Thereafter consult Cardiothoracic Surgery. We will need to define if it is truly PVE, because the management of GMN 2/2 IE would be completely different than in case of non-infectious etiology (immunosuppresion meds) 2. Continue with same antibiotics regimen. Case discussed with Dr. Ruiz ? SIGNATURE: Nicanor Schwarz MD PATIENT NAME: Frank Rivera DATE: January 05, 2018 TIME: 3:23 PM PAGER/CONTACT #: [phone] Chart reviewed, patient examined, and hernandez elements of history and physical examination of the patient confirmed. I reviewed the resident/fellow's note, examined the patient, and agree with the documented findings and plan of care. 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 Gee Ruiz MD Pager [phone] January 05, 2018 5:05 PM THERAPY NT Observed: 01/05/2018 Status: COMPLETED Source: [facility] 10:36 AM [facility] REPOSITORY HNO ID: [id number] Author: Ahmet Mello) [facility] Service: Physical Therapy Author Type: Decaler Type: Therapy (PT/OT/Speech/Resp) Filed: 01/05/2018 10:44 AM Note Text: Attestation signed by Loki Lei at 01/05/2018 4:35 PM I reviewed and agree with the documentation corresponding to this therapy visit. SIGNATURE: Loki Lei PT DATE: January 05, 2018 TIME: 4:35 PM Physical Therapy Treatment SERVICE DATE: 01/05/2018 SERVICE TIME: 0950 to 1028 ROOM: [place] [address] Recommended Discharge Disposition: Home PT Recommended Discharge Disposition Comments: Pt may progress to Home without PT needs Anticipated Discharge Needs: Physical Assist at Home Physical Assist at Home for: Transportation;Shopping;Laundry;Cleaning Recommended Discharge Equipment: To Be Determined PT Recommendations to Nursing: Ambulate without device;To bathroom;In halls;OOB for Meals;Transfer to/from chair;With assist of 1 person Device: No Device PT 6 Clicks Score: 23 Precautions/Activity Restrictions: Lines/Tubes/Drains;Abdominal ASSESSMENT : Patient improved to SBA with steps with cues for proper technique. Will continue to rec Home PT but may progress to Home pending LOS and improved activity tolerance. Patient Disposition at Start of Session: OOB in Chair;Call [facility] in Reach Patient Disposition at End of Session: OOB in Chair;Call [facility] in Reach;Family Present Tolerated Full Session Physical Therapy Problem List: Education Deficit;Impaired Self Care;Functional Mobility Impairment Patient /Caregiver Goals: Go Home;Care For Self Goals for Plan of Care: Transfer supine to/from sit with: Independent Transfer sit to/from stand with: Independent Ambulate with: Independent Distance: 500 Device: No Device Ambulate up and down steps with: Independent Number of steps: 2 Device: (No AD) Progress Toward Goals: Progressing as expected Rehab Potential: Good PLAN: Treatment Frequency (times per week): 3 Current admission Treatment Interventions: Education;Self Care / Home Management;Energy Conservation Training;Strengthening;Functional Mobility Training;Balance Training;Neuromuscular Re-education;Pain Management Plan of Care developed with: Patient TREATMENT INTERVENTIONS: Therapy Diagnosis: Reduced mobility-other Interventions Provided: Gait Training (54284);Therapeutic Exercise (16229) Therapeutic Exercise (71340) Treatment Minutes: 23 2 units Skilled Intervention(s): Pt performed the following standing exercises listed below with verbal and tactile cuing PRN for performance and maximal strengthening benefits: 1 set without shoes and 1 set with shoes. -hip flex, 15 ea x 2 -hip ABD, 15 ea x 2 -knee flex, 15 ea x 2 -mini squats, 15 ea x 2 -toe raises, 15 ea x 2 Instruction in performance and dosing of therapeutic exercises listed below. Verbal and tactile cuing provided for optimal performance, efficiency, and eccentric control ? Gait Training (39442) Treatment Minutes: 15 1 unit Skilled Intervention(s): Instruction in correction of gait deviations, Instruction in stair negotiation and Instruction in use of equipment, cues for sequence and pattern. Monitoring of vitals throughout session. Patient performed 2nd ambulation with shoes with slight improvement with lateral sway. Total Timed Code Treatment Minutes: (P) 38 Total Treatment Time (minutes): 38 FUNCTIONAL G CODE: PT 6 Clicks Score: 23 (01/05/18 0950) Mobility: Walking and Moving Around Current Status (G8978): CJ (12/29/17899) Mobility: Walking and Moving Around Goal Status (G8979): CI (12/29/17899) Based on clinical assessment and the score on the 6 Clicks Functional Assessment Tool, the G code and corresponding severity modifiers are documented above. SUBJECTIVE: Current Hospital Course: Chart reviewed and no significant medical updates relevant to therapy were noted Patient Report: Can I keep them on? regarding shoes. 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) OBJECTIVE: Mini Cog Score: 5 (12/28/17 0835) CURRENT FUNCTIONAL STATUS: Current Functional Mobility Assist Level Additional Information Rolling Independent Supine to Sit Stand By Assistance Sit to Supine Stand By Assistance Scooting Modified Independent Sit to Stand Modified Independent Stand to Sit Modified Independent Bed to Chair Stand By Assistance Bed To Chair Transfer Type: (5' stepping) Bed To Chair Transfer Equipment: (No AD) Toilet/Commode Gait Supervision Gait Device: None Gait Distance (feet): 520', 500' Stairs Stand By Assistance Stairs Device: Rail Number of Stairs: 4 Curb Step Car Transfer General Gait Deviations: Lateral sway increased;Arm swing decreased;Wide base of support;Flexed trunk posture;Step length decreased Balance: Static Sitting;Dynamic Sitting;Static Standing;Dynamic Standing Static Sitting Balance: Independent Dynamic Sitting Balance: Independent Static Standing Balance: Modified Independent Dynamic Standing Balance: Contact Guard Assistance Please see discipline specific clinical documentation flowsheet for complete details for this therapy evaluation/treatment. SIGNATURE: Ahmet Marie PTA PATIENT NAME: Frank Rivera DATE: January 05, 2018 TIME: 10:36 AM CONSULT PROG Observed: 01/05/2018 Status: COMPLETED Source: [facility] 10:06 AM [facility] REPOSITORY O ID: [id number] Author: Rosalina Hammer (Pharmacist) Service: Pharmacy Author Type: Pharmacist Type: Consult Progress Note Filed: 01/05/2018 10:09 AM Note Text: PHARMACY VANCOMYCIN DOSING NOTE Patient Name: Frank Rivera Admission Date: 12/24/2017 Date of Consult: 01/05/2018 Time of Consult: 10:06 AM Indication: Endocarditis Goal Range: 15-25 mcg/mL RECOMMENDATIONS/PLAN: Pharmacy consulted for vancomycin dosing for Frank Rivera, a 62 year old, male who is being treated with vancomycin for endocarditis. 1. Patient is currently ordered Vancomycin 1 g after each dialysis session (MWF). Today is day 2 of therapy. Day 1 of consult. 2. No vancomycin level has been drawn for this dosing regimen. 3. The present dose of vancomycin is the recommended dosage for this patient at this time. Continue therapy as prescribed. Will follow for renal recovery. 4. The next vancomycin level will be ordered for 01/11 unless clinically indicated sooner. (Pharmacy will order) We will follow patient renal function, vancomycin levels and doses with you during the course of therapy. Additional recommendations will appear in follow up notes. If you have any questions, please contact Rosalina Hammer PharmD at [phone]. Age: [age] year old Allergies: ALLERGIES Allergen Reactions - Penicillin Hives Last 3 Encounter Wt Readings: Date: Wt: 12/24/2017 107.8 kg (237 lb 9.6 oz) Last 1 Encounter Ht Readings: Date: Ht: 12/24/2017 193 cm (6' 4) CrCl: IRINA Temp (24hrs), Av.8 ?C (98.3 ?F), Min:36.7 ?C (98 ?F), Max:37.1 ?C (98.7 ?F) - Current Temp: 36.8 ?C (98.3 ?F) Labs BUN (mg/dL) Date Value 01/05/2018 22 01/04/2018 37 (H) 01/03/2018 32 (H) Creatinine (mg/dL) Date Value 01/05/2018 4.81 (H) 01/04/2018 6.61 (H) 01/03/2018 5.58 (H) WBC (k/uL) Date Value 01/05/2018 4.28 01/04/2018 5.14 01/03/2018 4.56 Vancomycin Levels: No results found for: NEETU Hammer Pharmacist CONSULT PROG Observed: 01/05/2018 Status: COMPLETED Source: [place] 10:05 AM [facility] REPOSITORY [facility] ID: [id number] Author: Vincent Coe Service: Nephrology Author Type: Physician Type: Consult Progress Note Filed: 01/05/2018 3:47 PM Note Text: CONSULT PROGRESS NOTE NEPHROLOGY SERVICE SERVICE DATE: 01/05/2018 SERVICE TIME: 12:23 PM Subjective INTERVAL HISTORY: Patient still with lower extremity swelling. Herring has been removed and patient remains anuric. Still waiting for Bartonella serologies MEDICATIONS: Current Medications Reviewed Objective PHYSICAL EXAM: BP 117/62 Pulse 60 Temp 36.8 ?C (98.3 ?F) (Oral) Resp 16 Ht 193 cm (6' 4) Wt 107.8 kg (237 lb 9.6 oz) SpO2 96% BMI 28.92 kg/m? Intake/Output Summary (Last 24 hours) at 01/05/18 1005 Last data filed at 01/05/18 0800 Gross per 24 hour Intake 720 ml Output 100 ml Net 620 ml Constitutional: No acute distress, Responsive, Normal habitus and Well-nourished Neck: Trachea midline Cardiovascular: Edema present: bilateral lower extremities Respiratory: Normal respiratory effort. Lungs clear bilaterally. Abdomen: Soft, non-tender, non-distended. Normal bowel sounds. No hepatosplenomegaly. Psychiatric: Alert and oriented x self, place, time, and setting Normal mood/affect Vascular Access: Hemodialysis catheter location: Right Nontunneled internal jugular. Exit site demonstrates: normal findings DATA: Diagnostic tests reviewed for today's visit: Most recent labs and imaging results. Recent Labs 01/05/18 0500 01/04/18 0431 01/03/18 0543 01/02/18 0527 01/01/18 0500 NA 134* 132* 135* 136 134* K 4.4 4.7 4.5 4.2 4.3 CHLOR 98 96* 97 99 96* CO2 27 26 28 30 25 BUN 22 37* 32* 23 31* CREAT 4.81* 6.61* 5.58* 4.51* 5.38* GLUC 85 86 82 83 82 ANION 9 10 10 7* 13 CA 7.7* 7.6* 7.6* 7.6* 7.7* P 3.2 3.8 3.6 3.3 3.9 MG 1.8 1.8 1.8 1.8 1.9 Recent Labs 01/05/18 0500 01/04/18 0431 01/03/18 0543 WBC 4.28 5.14 4.56 HB 7.8* 7.9* 8.1* HCT 24.3* 24.3* 25.2* PLT 79* 80* 76* Assessment/Plan 62 year old male with a PMH including A-fibb, s/p AVR, history of CVA, Fe deficiency anemia and hemolytic anemia presented to [facility] as a transfer from OSH on 12/24. Initial presentation to OSH was due to suspected GI bleed. Patient had low Hg however no diagnostic findings on Colonoscopy, EGD or tagged RBC scan. Patient was transferred to [facility] upon worsening of renal function. 1. 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 -Patient also ANCA +, MPO +, dsDNA + -Concern for Bartonella being underlying cause of infection 2. Electrolytes -Hyponatremia at 134 3. Normocytic Anemia -Likely multifactorial cause including blood loss, hemolysis as well as acute renal failure -No concerning finding on BM bx. Hematology has signed off 5. Volume Overload (LE edema is also related to hypoalbuminemia) -Still with pitting edema on physical exam Agree PLAN 1. Continue current MWF IHD Agree 2. Herring has been removed. Can do bladder scan q48 hours since patient has BPH Agree 3. Continue daily renal function panal 4. Renally dose medications Consent for HOSPICE ART THERAPIST: HOSPICE ART THERAPIST initiation date: 12/27/2017 Consent obtained and in EMR. This note has not been reviewed by attending physician. Plan not finalized until addendum is placed SIGNATURE: Yue Vargas MD PATIENT NAME: Frank Rivera DATE: January 04, 2018 TIME: 12:23 PM PAGER: [phone] Staff note: I have interviewed and examined this patient and agree with the resident's/fellows/Physician castings trimmer findings, impressions and plan. Vincent Coe DO PROGRESS Observed: 01/05/2018 Status: COMPLETED Source: PLANO 7:13 AM [facility] REPOSITORY O ID: [id number] Author: Cintia Wiley Service: Hospital Medicine Author Type: Physician Type: Progress Notes Filed: 01/05/2018 9:52 PM Note Text: INPATIENT PROGRESS NOTE ATTENDING: Cintia Wiley SERVICE DATE: 01/05/2018 SERVICE TIME: 7:30 AM For questions regarding this patient, please page [phone] during 7 a.m. - 5 p.m. After 5 p.m., please page on-call Adrien pager [phone] for concerns. Brief Plan - Continue hemodialysis (--) as per nephrology recommendations - Monitor H/H and transfuse Hg < 7 mg/dL or platelets < 50 - Appreciate ID recommendations - they are awaiting CHANDRAKANT from OSH. Pending bartonella PCR and serology. 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 - Continue IV Ceftriaxone 2g QD, 100mg MWF after dialysis, oral Doxycycline 100mg BID, vancomycin 1g MWF after dialysis - Follow up on pathology review of BM slides. Interval History No acute events overnight. Doing well this morning. Denies any symptoms, no fever, chills, no shortness of breath. IV Lasix 120mg x 1 challenge 01/03 overnight -- minimal increase in UOP Physical Exam BP 137/66 Pulse 62 Temp 37 ?C (98.6 ?F) (Oral) Resp 16 Ht 193 cm (6' 4) Wt 107.8 kg (237 lb 9.6 oz) SpO2 95% BMI 28.92 kg/m? -I/O: Intake/Output Summary (Last 24 hours) at 01/05/18 0713 Last data filed at 01/04/18 1832 Gross per 24 hour Intake 520 ml Output 100 ml Net 420 ml GENERAL: Alert, no distress, cooperative SKIN: Skin color, texture, turgor normal. No rashes or lesions. LUNGS: CTAB CARDIAC: Murmur 2/6, systolic, right upper sternal border ABDOMEN: Soft, non-distended, LLQ tenderness, +BS EXTREMETIES: No ulcers, 1-2+ pitting edema to knees NEURO: Alert, oriented X 3.?motor exam grossly normal. Sensation grossly intact., Cranial nerves II-XII intact PULSES: 2+ radial Medications Current hospital medications: blrmrufe-ossd-bwlsa acid chewable tablet (CENTRUM) 1 tablet ORAL DAILY cholecalciferol 3,000 Units tab(s) (VITAMIN D3) 3,000 Units ORAL DAILY cyanocobalamin 500 mcg tab(s) (VITAMIN B-12) 500 mcg ORAL DAILY thiamine 100 mg tab(s) (VITAMIN B1) 100 mg ORAL DAILY calcium carbonate 750 mg chewable tab(s) (TUMS) 750 mg ORAL/FEEDING TUBE TID PRN senna-docusate 8.6-50 mg 1 tablet (SENNA-S) 1 tablet ORAL/FEEDING TUBE BID PRN polyethylene glycol 3350 17 g packet (MIRALAX, GLYCOLAX) 17 g ORAL DAILY PRN cefTRIAXone 2 g in D5W 100 mL MB+ (ROCEPHIN) 2 g INTRAVENOUS q 24 H gentamicin 100 mg in NaCl (iso-osmotic) 100 mL 100 mg INTRAVENOUS MO-WE-FR doxycycline hyclate 100 mg cap(s) (VIBRAMYCIN) 100 mg ORAL q 12 H vancomycin iv piggyback 1 g in D5W 200 mL (VANCOCIN) 1 g INTRAVENOUS MO-WE-FR diphenhydrAMINE 25 mg (BENADRYL) 25 mg ORAL q 6 H PRN sodium chloride 0.65 % 2 [place] (AYR, OCEAN) 2 [place] EACH NOSTRIL TID aspirin, enteric coated 81 mg tab(s) 81 mg ORAL DAILY metoprolol tartrate (short acting) 12.5 mg tab(s) (LOPRESSOR) 12.5 mg ORAL BID docusate sodium 100 mg cap(s) (COLACE) 100 mg ORAL BID sodium citrate 4% 3-6 mL catheter lock 3-6 mL INTRALUMINAL PRN tamsulosin ER 0.4 mg cap(s) (FLOMAX) 0.4 mg ORAL DAILY pantoprazole DR 40 mg tab(s) (PROTONIX) 40 mg ORAL BID levothyroxine 200 mcg tab(s) (SYNTHROID) 200 mcg ORAL BEFORE BREAKFAST DAILY atorvastatin 80 mg tab(s) (LIPITOR) 80 mg ORAL AT BEDTIME Labs CBC: Recent Labs 01/05/18 0500 01/04/18 0431 01/03/18 0543 01/02/18 0527 01/01/18 0500 12/31/17 1349 12/31/17 0425 12/30/17 0541 WBC 4.28 5.14 4.56 3.58* 3.71 3.46* 3.42* 4.87 HB 7.8* 7.9* 8.1* 8.2* 8.2* 7.3* 6.9* 6.8* HCT 24.3* 24.3* 25.2* 26.2* 24.4* 22.5* 20.9* 20.6* PLT 79* 80* 76* 72* 73* 67* 66* 66* MCV 96.0 93.8 94.4 96.3 93.5 94.1 93.7 93.2 RDWCV 17.2* 17.2* 17.2* 17.4* 17.7* 18.1* 17.8* 17.9* NEUTP 61.0 64.9 63.3 55.9 62.5 -- 63.4 71.3 ABSNEUT 2.60 3.32 2.89 1.98 2.32 -- 2.16 3.47 LYMPHP 29.2 25.5 25.9 33.8 27.5 -- 27.2 22.6 MONOP 8.4 8.2 9.2 9.2 8.9 -- 8.2 5.7 EODINP 0.7 0.6 0.9 0.8 0.8 -- 0.9 0.2 BMP: Recent Labs 01/05/18 0500 01/04/18 0431 01/03/18 0543 01/02/18 0527 01/01/18 0500 12/31/17 0425 12/30/17 0541 GLUC 85 86 82 83 82 83 87 NA 134* 132* 135* 136 134* 137 135* K 4.4 4.7 4.5 4.2 4.3 3.9 3.9 CHLOR 98 96* 97 99 96* 101 101 CO2 27 26 28 30 25 29 23 ANION 9 10 10 7* 13 7* 11 BUN 22 37* 32* 23 31* 22 34* CREAT 4.81* 6.61* 5.58* 4.51* 5.38* 3.92* 4.63* CHEM: Recent Labs 01/05/18 0500 01/04/18 0431 01/03/18 0543 01/02/18 0527 01/01/18 0500 12/31/17 0425 12/30/17 0541 CA 7.7* 7.6* 7.6* 7.6* 7.7* 7.2* 7.5* MG 1.8 1.8 1.8 1.8 1.9 1.8 -- HEPATIC: No results for input(s): ALKPHOS, ALT, AST, TBILI, LIPASE in the last 168 hours. COAG: Recent Labs 12/31/17 1349 12/30/17 0541 APTT -- 36.5* INR 1.4* -- URINALYSIS:No results for input(s): PH, SPGR, UGLUC, UBILI, UKET, UHB, UPROT, UROBIL, UWBC, SSA in the last 168 hours. Invalid input(s): NITR CARDIAC: No results for input(s): CKTEST, CKMB, CKMBP, TROPT, PBNP in the last 168 hours. Imaging ECHO TRANSESOPHAGEAL 01/01/2018 - Exam indication: ?Endocarditis - The left ventricle is normal in size. Left ventricular systolic function is normal. EF = 60 ? 5% (visual est.) - The right ventricle is dilated. Right ventricular systolic function is mildly decreased. - The left atrial cavity is dilated. - Previous RUDY ligation. Small residual RUDY. - The right atrial cavity is dilated. - There is moderate (2+ - 3+) tricuspid valve regurgitation. 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 There is moderately severe (3+) aortic valve regurgitation due to paravalvular endocarditis. - There is no patent foramen ovale as detected by Doppler and saline contrast. - The Aortic valve prosthesis appears to be well seated with evidence of mild degeneration and without any obvious mobile echodensity on its leaflets. There is thickening of the Aorto-Mitral curtain and posterior LA wall which is suggestive of either hematoma or active infection. - There does not appear to be any transvalvular AI however there is a diastolic flow arising from the subvalvular region which may (Clip #47, #42) or may represent 3+ paravalvular regurgitation with a very eccentric jet. Consider Cardiac CT for better characterization and to r/o the presence of a fistula or abscess. - There is a a small mobile echodensity within the RA which may be attached either ?to the Venous catheter or the atrial portion of one of the pacemaker leads (1.2cm ?x 0.55 cm, Clip #28). This may represent vegetation or thrombus. - Exam was compared with the prior echocardiographic exam performed on 12/25/2017. Thrombus/Vegetation on pacemaker lead/venous catheter and possible paralvalvular leak. XR CHEST 1V FRONTAL 12/27/2017 Lines, Tubes, and Devices: ?Right IJ line mid SVC. Stable pacemaker. Lungs and Pleura: ?Bilateral effusions and overlying opacity similar to prior. No pneumothorax. Cardiomediastinal silhouette: ?Stable cardiac silhouette. ? CT ABD/PEL WO IVCON 12/27/2017 LARGE LEFT RECTUS SHEATH HEMATOMA, STABLE OR SLIGHTLY INCREASED IN SIZE SINCE 12/25/2017. 3.3 CM ROUND LOW-ATTENUATION LESION ADJACENT TO THE CELIAC AXIS WHICH MAY BE AN ENLARGED LYMPH NODE. CHOLELITHIASIS WITHOUT EVIDENCE CHOLECYSTITIS. HEPATIC STEATOSIS. ? US ABD RT UPPER QUADRANT AND SPLEEN 12/26/2017 CHOLELITHIASIS IN A DISTENDED GALLBLADDER WITHOUT OTHER EVIDENCE OF ACUTE CHOLECYSTITIS. DIFFUSE HEPATIC STEATOSIS. The craniocaudal length of the spleen is 10.1 cm, normal. There are no splenic lesions. ? CT ABD/PEL WO IVCON 12/25/2017 Moderate LEFT rectus sheath hematoma Diffuse hepatic steatosis. 2.6 cm low-attenuation structure abutting the celiac, possibly an enlarged lymph node. ?Further evaluation with contrast-enhanced study should be considered. Cholelithiasis without evidence of acute cholecystitis. ? LEG DVT JORGE LUIS BOBBY 12/25/2017 RIGHT SIDE - DEEP VEINS Negative for acute deep vein thrombosis. Thickened redmond, patent distal external iliac vein and common femoral vein. Only segments visualized of the posterior tibial veins and peroneal veins. Multiple enlarged lymph nodes noted in the right groin with the largest measuring aproximately: 1.4 x 1.5 x 0.9 cm. RIGHT SIDE - SUPERFICIAL VEINS Thickened redmond, patent great saphenous?vein. LEFT SIDE - DEEP VEINS Only segments visualized of the posterior tibial veins and peroneal veins. Multiple enlarged lymph nodes noted in the right groin with the largest measuring aproximately: 2.3 x 1.8 x 0.7 cm. 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 ? XR CHEST 1V FRONTAL Lines, tubes, and devices: ?The patient is status post median sternotomy and left 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 clip placement. ?Left pacemaker device is in place with leads in the right atrium and the right ventricle. ?Surgical clips overlie the upper abdomen. Lungs and pleura: ?Patchy reticular opacities are noted, likely related to pulmonary edema. Hazy opacity overlying the right lung base is likely related to small right pleural effusion and adjacent atelectasis/consolidation. ?Also noted is trace left pleural effusion. ?A vertically oriented lucency overlying the right lower chest is favored to be a skinfold. Cardiomediastinal silhouette: ?Cardiac silhouette is enlarged with pulmonary venous congestion. ? ECHO 12/25/2017 - Technically difficult exam due to suboptimal positioning. - Exam indication: Initial evaluation of Heart Failure - The left ventricle is moderately dilated. There is moderate concentric left ventricular hypertrophy. Left ventricular systolic function is normal. EF = 66 ? 5% (2D biplane) - The right ventricle is normal in size. Right ventricular systolic function is normal. - The left atrial cavity is severely dilated. - The right atrial cavity is dilated. - There is moderate (2+) mitral valve regurgitation. Thickened mitral valve leaflets. - There is moderate (2+ - 3+) tricuspid valve regurgitation. 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 There is moderately severe (3+) aortic valve regurgitation. The peak gradient is 39 mmHg, the mean gradient is 17 mmHg and the dimensionless valve index is 0.53. There is both valvular and paravalvular AI. There is flow reversal in the descending aorta. - Estimated right ventricular systolic pressure is?likely underestimated due to a weak or incomplete tricuspid regurgitation signal and is, at least, 70 mmHg consistent with moderately severe pulmonary hypertension. Estimated right atrial pressure is 15 mmHg. - The patient has not had a prior CC echocardiographic exam for comparison. Assessment and Plan Mr. 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 MICU transfer to initiate dialysis secondary to volume overload. Patient is now anuric IRINA-D. 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 ? #Pancytopenia #Hemolytic anemia Presented with fatigue, shortness of breath History of UGIB secondary to Min-en-Y (most recently 2015), OSH EGD/C-scope/tagged RBC scan showed no evidence of bleed Requiring pRBC transfusion x 3 during this hospitalization Concerns for hemolytic process, not Petar driven--peripheral smear showed evidence of scant schistocytes, yojana cells, rare spherocytes, thrombocytopenia. ?Elevated Igs, will try to continue to workup lymphoproliferative process as potential etiology - Transfuse Hgb < 7, Plts < 50 ? #Atrial fibrillation S/p PPM for sick sinus syndrome Metoprolol 12.5mg BID home dose held for acute anemia, which has now stabilized HR in 80s-low 100s, HDS -Hold apixaban?for rectus sheath hematoma, will trial with heparin gtt, if tolerates, switch back to apixaban -Continue metoprolol 12.5mg BID -Tele ? #Rectus sheath hematoma Last imaging 12/27/17 showed 20 x 8.7 x 6.7 cm left rectus sheath hematoma, unclear etiology -Daily CBC -Will trial with heparin gtt, if tolerates, switch back to apixaban #Lymphadenopathy 3.3 x 2.9cm ?LN in celiac region, concern by Hematology for possible lymphoproliferative disorder -Hold on LN biopsies at this point -Appreciate ID recs. 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 -Continue IHD -Continue sodium bicarbonate 650mg TID -Daily BMP -f/u Nephrology recs ? #CAD Continue atorvastatin 80mg qHS ? #Mild protein-calorie malnutrition -Nutritional support ? #Hypothyroidism -Continue levothyroxine 200mcg qAM ? 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 - No evidence of pathologic lesion, blood cultures have been negative, has CHANDRAKANT positive for IE, no evidence of abscess, concerns that prior CVA/TIA were 2/2 mycotic aneurysm (no brain MRI performed to date, unable to be performed due to ESRD), and that IRINA is immunologic phenomena secondary to IE - By Zabala criteria, possible if no mycotic aneurysm, definite if mycotic aneurysm (or if +Bartonella serology) - Afebrile, HDS, negative blood cultures, no leukocytosis - Appreciate ID recs: they are awaiting CHANDRAKANT from OSH - f/u Bartonella serologies - Appreciate cardiology recs, ordered cardiac CT scan, will attempt to coordinate dialysis - Started on antibiotics as follows: IV Ceftriaxone 2g QD IV Gentamicin 300mg loading dose, 100mg MWF after dialysis Oral Doxycycline 100mg BID Vancomycin 1.5g loading dose, 1g MWF after dialysis Diet: Renal DVT PPx: IPCs GI PPx: Pantoprazole 40mg qDay Fran Garner MD, MBA MS Internal Medicine [address] [address] [email or web address] Pager #: [phone] Note: These recommendations are not final until staffed by provider For questions regarding this patient, please page [phone] during 7 a.m. - 5 p.m. After 5 p.m., please page on-call Adrien pager [phone] for concerns. [facility] STAFF PHYSICIAN NOTE OF PERSONAL INVOLVEMENT IN CARE I have reviewed the progress note obtained and documented by the resident and I personally participated in the hernandez components. I have discussed the case and management of the patient's care. The following comments revise or confirm relevant hernandez components of their note. 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 ? He also had a bone marrow biopsy to evaluate pancytopenia to rule out myeloma process. ?This is being reviewed by our pathologists now (requested tissue block) ? Hospital course complicated by need for red cell and platelet transfusion as well as spontaneous rectus sheath hematoma,?required CVVHD and then hemodialysis for hypoxemic respiratory failure and volume overload requiring MICU stay. ? 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 paravalvular leak with ? abscess/IE per hotel housekeeper, not entirely sure this represents IE, asked for CHANDRAKANT from 05/2017 from OSH, appreciate ID input also. ? ? No new complaints, seen in the room , sitting comfortable in the chair, sister at bedside. Bartonella serologies pending ? ? Plan: hemodialysis per nephrology bartonella serologies (to be sent today 01/05) Blood cultures follow up antibiotics for presumed prosthetic valve endocarditis Appreciate consult teams input, discussed with ID and will obtain Cardiothoracic surgery consult. ? Cintia Wiley MD (Nieves Souza) [facility] Medicine Department Pager [phone] 01/05/2018 2:15 PM ? CBC AND DIFFERENTIAL Collected: 01/05/2018 Status: F Source: PLANO 5:00 AM [facility] REPOSITORY TYPE CODE TESTS RESULT OUT OF REFERENCE UNITS RANGE LAB WBC 3.70-11.00 k/uL WBC 4.28 LAB RBC 4.20-6.00 m/uL Low RBC 2.53 LAB HGB 13.0-17.0 g/dL Low Hemoglobin 7.8 LAB HCT 39.0-51.0 % Low Hematocrit 24.3 LAB MCV 80.0-100.0 fL MCV 96.0 LAB MCH 26.0-34.0 pG MCH 30.8 LAB MCHC 30.5-36.0 g/dL MCHC 32.1 LAB RDWCV 11.5-15.0 % RDW-CV High 17.2 LAB PLTCT 150-400 k/uL Low Platelet Count 79 Result Comment: No clot detected. LAB MPV 9.0-12.7 fL MPV 10.6 LAB ANEUT % Neut% 61.0 LAB AANEUT 1.45-7.50 k/uL Abs Neut 2.60 LAB ALYMP % Lymph% 29.2 LAB AALYMP 1.00-4.00 k/uL Abs Lymph 1.25 LAB AMONO % Pope% 8.4 LAB AAMONO <0.87 k/uL Abs Pope 0.36 LAB AEOS % Eosin% 0.7 LAB AAEOS <0.46 k/uL Abs Eosin 0.03 LAB ABASO % Baso% 0.7 LAB AABASO <0.11 k/uL Abs Baso 0.03 LAB AUNRBC 0 /100 WBC NRBCs 0.0 LAB ABNRBC <0.01 k/uL Absolute nRBC <0.01 LAB DTYP DTYPE Auto Diff Performed By: #### CBCDIF, BMP, MG1, PHOS #### [facility] [address] [place], [place] [address] BASIC METABOLIC PANL Collected: 01/05/2018 Status: F Source: PLANO 5:00 AM [facility] REPOSITORY TYPE CODE TESTS RESULT OUT OF REFERENCE UNITS RANGE LAB GLU 74-99 mg/dL Glucose 85 Result Comment: The [place] Diabetes Association (ADA) provides guidance for cutoff values for fasting glucose and random glucose. The ADA defines fasting as no caloric intake for at least 8 hours. Fas ting plasma glucose results between 100 to 125 mg/dL indicate increased risk for diabetes (prediabetes). Fasting plasma glucose results greater than or equal to 126 mg/dL meet the criteria for diagnosis of diabetes. In the absence of unequivocal hyperglycemia, results should be confirmed by repeat testing. In a patient with classic symptoms of hyperglycemia or hyperglycemic crisis, random plasma glucose results greater than or equal to 200 mg/dL meet the criteria for diagnosis of diabetes. Reference: Standards of Medical Care in Diabetes 2016, [place] Diabetes Association. Diabetes Care. 2016.39(Suppl 1). LAB BUN 9-24 mg/dL BUN 22 LAB CRET 0.73-1.22 mg/dL Creatinine High 4.81 LAB NA 136-144 mmol/L Low Sodium 134 LAB K 3.7-5.1 mmol/L Potassium 4.4 LAB CL 97-105 mmol/L Chloride 98 LAB CO2 22-30 mmol/L CO2 27 LAB AGAP 9-18 mmol/L Anion Gap 9 LAB CA 8.5-10.2 mg/dL Low Calcium, Total 7.7 LAB GFRAA eGFR- Amer. 15 LAB GFRNAA . eGFR-All Other Races 12 Result Comment: eGFR (Estimated GFR) Units of measure: mL/min/1.73 meters squared eGFR is derived from the reexpressed MDRD Study equation using the following parameters: serum creatinine, age, gender and race. The creatinine assay has been calibrated to be traceable to IDMS. An eGFR <60 mL/min/1.73m2 for >3 months is consistent with chronic kidney disease. Refer to KDOQI guidelines for clinical interpretation. In patients with unstable renal function, e.g. those with acute kidney injury, the eGFR may not accurately reflect actual GFR. Performed By: #### CBCDIF, BMP, MG1, PHOS #### [facility] [employer] [address] [place] [address] MAGNESIUM Collected: 01/05/2018 Status: F Source: PLANO 5:00 AM [facility] REPOSITORY TYPE CODE TESTS RESULT OUT OF REFERENCE UNITS RANGE LAB MG 1.7-2.3 mg/dL Magnesium 1.8 Performed By: #### CBCDIF, BMP, MG1, PHOS #### [facility] [employer] [address] [place] [address] PHOSPHORUS Collected: 01/05/2018 Status: F Source: PLANO 5:00 AM [facility] REPOSITORY TYPE CODE TESTS RESULT OUT OF REFERENCE UNITS RANGE LAB PHOS 2.7-4.8 mg/dL Phosphorus 3.2 Performed By: #### CBCDIF, BMP, MG1, PHOS #### [facility] [employer] [address] [place] [address] NURSING PROG Observed: 01/05/2018 Status: COMPLETED Source: PLANO 3:08 AM [facility] REPOSITORY HNO ID: [id number] Author: Serena (Rn) DIEUDONNE Darling Service: Abstract Author Type: Registered Nurse Type: Nursing Progress Note Filed: 01/05/2018 3:09 AM Note Text: Nursing Progress Note Patient Name: Frank Rivera Patient Location: [place] [address]- Daily Note: patient is not urinating, bladder scan showed low volume unable to measure. Herring off about 6pm 01/04 - (last night), No fluids running. MD [facility] notified [phone]. This note was completed by: Serena Darling RN NUTRITION Observed: 01/04/2018 Status: COMPLETED Source: PLANO 2:37 PM [facility] REPOSITORY HNO ID: [id number] Author: Tianna Benavides) Igel Service: Nutrition Therapy Author Type: Registered Dietitian Type: Nutrition Filed: 01/04/2018 2:59 PM Note Text: NUTRITION THERAPY PROGRESS NOTE SERVICE DATE: 01/04/2018 SERVICE TIME: 2:37 PM RECOMMENDED DIAGNOSIS: MILD PROTEIN-CALORIE MALNUTRITION per Registered Dietitian on 12/25 NUTRITION CARE PLAN Intervention: Meals and Snacks - Continue Renal Diet Medical Food Supplements - Change supplement to Ensure Clear BID (480 kcal and 16 gm pro) - Add Ensure HP daily (160 kcal and 16 gm pro) - Order Bariatric Vitamin/Mineral Regimen Daily MVI w/ minerals 75-100 mcg thiamine 500 mcg B12 3000 IU Vit D Initial/Brief Nutrition Education - Renal Diet Basics ed provided Coordination of Nutritional Care - Pt c/o heartburn (already on Protonix 40 mg BID) Monitor and Evaluation: Goal: Meet >75% of estimated needs Monitor fluid/electrolyte balance Monitor labs, I/Os, vital signs, weight Discharge Nutrition Recommendations: Diet: Renal diet Supplements: High kcal/protein supplement x 1-2 per day as needed for intakes meeting < 75% est needs Education: Renal Diet Per HPI: Mr. 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 MICU transfer to initiate dialysis secondary to volume overload. Patient is now anuric IRINA-D. 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 Interval History: Per IM note 01/03 Brief Plan ? - Continue hemodialysis as per nephrology recommendations - Monitor H/H and transfuse Hg < 7 mg/dL or platelets < 50 - Appreciate ID recommendations. Follow up on bartonella PCR and serology. 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 - Continue IV Ceftriaxone 2g QD, 100mg MWF after dialysis, oral Doxycycline 100mg BID, vancomycin 1g MWF after dialysis - Follow up on pathology review of BM slides. ? Interval History ? No acute events overnight. Doing well this morning. Denies any symptoms, no fever, chills, no shortness of breath. IV Lasix 120mg x 1 challenge 01/03 overnight -- minimal increase in UOP Nutritional Intake: <75% estimated energy needs over the past 10 day(s) 12/30-01/03: I/O reviewed. avr meal intake 84% which provides 1396 kcal and 54 gm pro. Pt reports drinking 1.5-2 Ensure Clears per day (360-480 kcal and 12-16 gm pro). Pt est to be meeting 70% est kcal and 55% est pro needs 12/25-12/29: <50% estimated energy need over the past 5 day(s) Per I/O's, pt consuming an average of 45% of his meals (600 kcal/d). Pt reports having poor appetite. He is agreeable to trying oral supplements. Resting Metabolic Rate: 2053 Dosing wt: 100 kg Estimated kilocalorie needs: 2500 - 3000 kilocalories determined by 25-30 kcal/kg Estimated protein needs: 120 - 150 grams determined by 1.2- 1.5 g/kg Dosing weight Estimated fluid needs: 2000 - 2500 milliliters based on 20- 25 mL/kg Current Diet Order DIET RENAL Order Specific Question: Renal Answer: 90GM PRO / 2GM K / 2 GM NA / LOW PHOSPHORUS Height: 193 cm (6' 4) Admission Weight: 115.7 kg (255 lb 1.6 oz) Current Weight: 114.5 kg (252 lb 6.4 oz) Body mass index is 30.72 kg/m?. IBW: 202# +/- 10% UBW: 221# (100 kg) Recent Labs 01/04/18 0431 GLUC 86 BUN 37* CREAT 6.61* NA 132* K 4.7 CHLOR 96* CO2 26 P 3.8 HB 7.9* HCT 24.3* WBC 5.14 MG 1.8 Current Facility-Administered Medications: senna-docusate 8.6-50 mg 1 tablet (SENNA-S) 1 tablet ORAL/FEEDING TUBE BID PRN polyethylene glycol 3350 17 g packet (MIRALAX, GLYCOLAX) 17 g ORAL DAILY PRN cefTRIAXone 2 g in D5W 100 mL MB+ (ROCEPHIN) 2 g INTRAVENOUS q 24 H gentamicin 100 mg in NaCl (iso-osmotic) 100 mL 100 mg INTRAVENOUS MO-WE-FR doxycycline hyclate 100 mg cap(s) (VIBRAMYCIN) 100 mg ORAL q 12 H vancomycin iv piggyback 1 g in D5W 200 mL (VANCOCIN) 1 g INTRAVENOUS MO-WE-FR diphenhydrAMINE 25 mg (BENADRYL) 25 mg ORAL q 6 H PRN sodium chloride 0.65 % 2 [place] (AYR, OCEAN) 2 [place] EACH NOSTRIL TID aspirin, enteric coated 81 mg tab(s) 81 mg ORAL DAILY metoprolol tartrate (short acting) 12.5 mg tab(s) (LOPRESSOR) 12.5 mg ORAL BID docusate sodium 100 mg cap(s) (COLACE) 100 mg ORAL BID sodium citrate 4% 3-6 mL catheter lock 3-6 mL INTRALUMINAL PRN tamsulosin ER 0.4 mg cap(s) (FLOMAX) 0.4 mg ORAL DAILY pantoprazole DR 40 mg tab(s) (PROTONIX) 40 mg ORAL BID levothyroxine 200 mcg tab(s) (SYNTHROID) 200 mcg ORAL BEFORE BREAKFAST DAILY atorvastatin 80 mg tab(s) (LIPITOR) 80 mg ORAL AT BEDTIME Date 01/03/18 07 - 01/04/18 0659 01/04/18 07 - 01/05/18 0659 Shift 0829-7201 0354-6645 3844-2447 24 Hour Total 8409-3940 5800-7236 5819-6346 24 Hour Total I N T A K E PO 600 240 840 PO 600 240 840 IV 10 132 142 IV Flushes 10 20 30 IVPB 0 0 0 NS 0.9% 0 0 0 Vancomycin IV 0 0 0 Cipro IV 0 0 0 Ceftriaxone IV 0 100 100 Gentamycin IV 0 0 0 Morphine Volume 0 0 0 Fentanyl Volume 0 0 0 Regular Insulin IV 0 0 0 Furosemide IV 0 12 12 Flagyl IV 0 0 0 D50W IV Syringe 0 0 0 Ferric Gluconate IV 0 0 0 Shift Total 610 372 982 O U T P U T Shift Total Weight (kg) 114.5 114.5 114.5 114.5 114.5 114.5 114.5 114.5 Vitamin and Mineral Labs in the past year: Recent Labs 12/24/17 1632 TIBC <157* FE 140 MAX 422.0 MNT Billing Type: Re-assess/15 min 3 units SIGNATURE: Tianna Villegas MS, RD, LD PATIENT NAME: Frank Rivera DATE: January 04, 2018 TIME: 2:37 PM PAGER: [phone] THERAPY NT Observed: 01/04/2018 Status: COMPLETED Source: [place] 2:12 PM [facility] REPOSITORY HNO ID: [id number] Author: Ahmet Marie Service: Physical Therapy Author Type: Decaler Type: Therapy (PT/OT/Speech/Resp) Filed: 01/04/2018 2:13 PM Note Text: Attestation signed by Loki Lei at 01/04/2018 5:40 PM I reviewed and agree with the documentation corresponding to this therapy visit. SIGNATURE: Loki Lei, PT DATE: January 04, 2018 TIME: 5:40 PM PHYSICAL THERAPY MISSED VISIT SERVICE DATE: 01/04/2018 SERVICE TIME: 1412 to 1412 ROOM: [place] [id number] Attempted Treatment. Patient not seen due to Test/Procedure (dialysis). SIGNATURE: Ahmet Marie PTA PATIENT NAME: Frank Rivera DATE: January 04, 2018 TIME: 2:13 PM CONSULT PROG Observed: 01/04/2018 Status: COMPLETED Source: [place] 12:22 PM [facility] REPOSITORY HNO ID: [id number] Author: Vincent Coe Service: Nephrology Author Type: Physician Type: Consult Progress Note Filed: 01/04/2018 1:26 PM Note Text: CONSULT PROGRESS NOTE NEPHROLOGY SERVICE SERVICE DATE: 01/04/2018 SERVICE TIME: 12:23 PM Subjective INTERVAL HISTORY: Patient still with lower extremity swelling. Patient remains anuric. Following bartonella serolgies MEDICATIONS: Current Medications Reviewed Objective PHYSICAL EXAM: BP 117/65 Pulse 60 Temp 37 ?C (98.6 ?F) (Oral) Resp 16 Ht 193 cm (6' 4) Wt 114.5 kg (252 lb 6.4 oz) SpO2 96% BMI 30.72 kg/m? Intake/Output Summary (Last 24 hours) at 01/04/18 1223 Last data filed at 01/03/18 1800 Gross per 24 hour Intake 612 ml Output 0 ml Net 612 ml Constitutional: No acute distress, Responsive, Normal habitus and Well-nourished Neck: Trachea midline Cardiovascular: Edema present: bilateral lower extremities Respiratory: Normal respiratory effort. Lungs clear bilaterally. Abdomen: Soft, non-tender, non-distended. Normal bowel sounds. No hepatosplenomegaly. Psychiatric: Alert and oriented x self, place, time, and setting Normal mood/affect Vascular Access: Hemodialysis catheter location: Right Nontunneled internal jugular. Exit site demonstrates: normal findings DATA: Diagnostic tests reviewed for today's visit: Most recent labs and imaging results. Recent Labs 01/04/1843001/03/1843 01/02/18 0501/01/18 0500 12/31/17 0425 NA 132* 135* 136 134* 137 K 4.7 4.5 4.2 4.3 3.9 CHLOR 96* 97 99 96* 101 CO2 26 28 30 25 29 BUN 37* 32* 23 31* 22 CREAT 6.61* 5.58* 4.51* 5.38* 3.92* GLUC 86 82 83 82 83 ANION 10 10 7* 13 7* CA 7.6* 7.6* 7.6* 7.7* 7.2* P 3.8 3.6 3.3 3.9 3.0 MG 1.8 1.8 1.8 1.9 1.8 Recent Labs 01/04/18 04301/03/1843 01/02/18 05 WBC 5.14 4.56 3.58* HB 7.9* 8.1* 8.2* HCT 24.3* 25.2* 26.2* PLT 80* 76* 72* Assessment/Plan 62 year old male with a PMH including A-fibb, s/p AVR, history of CVA, Fe deficiency anemia and hemolytic anemia presented to [facility] as a transfer from OSH on 12/24. Initial presentation to OSH was due to suspected GI bleed. Patient had low Hg however no diagnostic findings on Colonoscopy, EGD or tagged RBC scan. Patient was transferred to [facility] upon worsening of renal function. 1. 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 -Patient also ANCA +, MPO +, dsDNA + -Concern for Bartonella being underlying cause of infection -Patient did not respond to lasix (Noted) 2. Electrolytes -Hyponatremia at 132. 3. Normocytic Anemia -Likely multifactorial cause including blood loss, hemolysis as well as acute renal failure -No concerning finding on BM bx. Hematology has signed off 5. Volume Overload PLAN 1. Continue current MWF IHD 2. Consider removing herring given patient still anuric Agree with periodic bladder scan Q 48 hours, especially with hx of BPH 3. Continue daily renal function panal 4. Renally dose medications Consent for HOSPICE ART THERAPIST: HOSPICE ART THERAPIST initiation date: 12/27/2017 Consent obtained and in EMR. This note has not been reviewed by attending physician. Plan not finalized until addendum is placed SIGNATURE: Yue Vargas MD PATIENT NAME: Frank Rivera DATE: January 04, 2018 TIME: 12:23 PM PAGER: [phone] Staff note: I interviewed and examined this patient myself and agree with the resident's/fellows/physican castings trimmer findings, impressions and plan. Patient seen on dialysis. Orders confirmed. Vincent Coe DO CASE MANAGEM Observed: 01/04/2018 Status: COMPLETED Source: [place] 11:13 AM [facility] REPOSITORY [facility] ID: [id number] Author: Terrie Garcia (Sw) Service: Care Management Author Type: Director Of Safety And Security Type: Care Mgt Progress Note Filed: 01/04/2018 11:14 AM Note Text: CARE MANAGEMENT PROGRESS NOTE SERVICE DATE: 01/04/2018 SERVICE TIME: 11:13 AM LOS: 11 days Needs Prior to Discharge: Facility or Agency Choices;Home Care Order;Accepting Facility Per medical team, d/c date pending. Pt will need outpatient dialysis and likely HHC. Will follow. Please call or page SW if any questions or concerns arise. SIGNATURE: BARBARA Wade PATIENT NAME: Frank Rivera DATE: January 04, 2018 TIME: 11:13 AM PAGER/CONTACT #: [phone] CONSULT PROG Observed: 01/04/2018 Status: COMPLETED Source: [place] 11:09 AM [facility] REPOSITORY O ID: [id number] Author: Gee Ruiz Service: Infectious Disease Author Type: Physician Type: Consult Progress Note Filed: 01/04/2018 1:16 PM Note Text: PROGRESS NOTE INFECTIOUS DISEASE SERVICE DATE: 01/04/2018 SERVICE TIME: 11:09 AM Subjective Interval Events: Comfortable on dialysis. Tells me he is very worried about his kidneys. Not as concerned about the possibility of OHS. ROS: 6 systems reviewed and negative apart from the above Medications: Current hospital medications: senna-docusate 8.6-50 mg 1 tablet (SENNA-S) 1 tablet ORAL/FEEDING TUBE BID PRN polyethylene glycol 3350 17 g packet (MIRALAX, GLYCOLAX) 17 g ORAL DAILY PRN cefTRIAXone 2 g in D5W 100 mL MB+ (ROCEPHIN) 2 g INTRAVENOUS q 24 H gentamicin 100 mg in NaCl (iso-osmotic) 100 mL 100 mg INTRAVENOUS MO-WE-FR doxycycline hyclate 100 mg cap(s) (VIBRAMYCIN) 100 mg ORAL q 12 H vancomycin iv piggyback 1 g in D5W 200 mL (VANCOCIN) 1 g INTRAVENOUS MO-WE-FR diphenhydrAMINE 25 mg (BENADRYL) 25 mg ORAL q 6 H PRN sodium chloride 0.65 % 2 [place] (AYR, OCEAN) 2 [place] EACH NOSTRIL TID aspirin, enteric coated 81 mg tab(s) 81 mg ORAL DAILY metoprolol tartrate (short acting) 12.5 mg tab(s) (LOPRESSOR) 12.5 mg ORAL BID docusate sodium 100 mg cap(s) (COLACE) 100 mg ORAL BID sodium citrate 4% 3-6 mL catheter lock 3-6 mL INTRALUMINAL PRN tamsulosin ER 0.4 mg cap(s) (FLOMAX) 0.4 mg ORAL DAILY pantoprazole DR 40 mg tab(s) (PROTONIX) 40 mg ORAL BID levothyroxine 200 mcg tab(s) (SYNTHROID) 200 mcg ORAL BEFORE BREAKFAST DAILY atorvastatin 80 mg tab(s) (LIPITOR) 80 mg ORAL AT BEDTIME Current Antibiotics: Ceftriaxone Doxycycline Gentamicin Vancomycin Current immunosuppressive medications: None Objective Physical Exam: Temp (24hrs), Av.9 ?C (98.4 ?F), Min:36.7 ?C (98 ?F), Max:37 ?C (98.6 ?F) Temp (120hrs), Av.8 ?C (98.2 ?F), Min:36.3 ?C (97.3 ?F), Max:37.3 ?C (99.2 ?F) GENERAL APPEARANCE: lying in bed on dialysis. NECK: upper chest pacemaker. LUNGS: decreased sounds at the bases. HEART: Regular; diastolic murmur. ABDOMEN: Soft, non tender, no palpable masses, normal bowel sounds. EXTREMITIES: 2+ edema. NEURO: Awake, alert and oriented x3, no involuntary motions. Lab data: WBC (k/uL) Date Value 01/04/2018 5.14 01/03/2018 4.56 01/02/2018 3.58 01/01/2018 3.71 12/31/2017 3.46 Platelet Count (k/uL) Date Value 01/04/2018 80 01/03/2018 76 01/02/2018 72 01/01/2018 73 12/31/2017 67 Creatinine (mg/dL) Date Value 01/04/2018 6.61 01/03/2018 5.58 01/02/2018 4.51 01/01/2018 5.38 12/31/2017 3.92 AST (U/L) Date Value 12/27/2017 32 ALT (U/L) Date Value 12/27/2017 22 Microbiology data: Reviewed DATA: Diagnostic Tests Reviewed for Today's Visit: Most recent labs Impression/Recommendations 62 yo gentleman with a h/o AVR (pericardial valve at [facility]) for on 05/07/2017, A-fib and SSS s/p PPM, and Mni-en-Y gastric bypass 1996. 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 I spoke to personnel at [facility] and have arranged for CHANDRAKANT images from 06/09/2017 to be sent to [facility]. I spoke to Cardiology here on 2 occasions and to the primary team directly. ? RECOMMENDATIONS: Await CHANDRAKANT images from [facility]. Thereafter consult Cardiothoracic Surgery. At this point, there is no other diagnostic consideration outside of PVE to unify his clinical features - sudden renal failure, crescentic GN with IgM and C3, low complement, positive p-ANCA, etc. SIGNATURE: Gee Ruiz MD PATIENT NAME: Frank Rivera DATE: January 04, 2018 TIME: 11:09 AM PAGER/CONTACT #: [phone] PROGRESS Observed: 01/04/2018 Status: COMPLETED Source: [place] 8:20 AM [facility] REPOSITORY O ID: [id number] Author: Cintia Wiley Service: General Internal Medicine Author Type: Physician Type: Progress Notes Filed: 01/04/2018 10:51 PM Note Text: INPATIENT PROGRESS NOTE ATTENDING: Cintia Wiley SERVICE DATE: 01/04/2018 SERVICE TIME: 7:30 AM For questions regarding this patient, please page [phone] during 7 a.m. - 5 p.m. After 5 p.m., please page on-call Adrien pager [phone] for concerns. Brief Plan - Continue hemodialysis as per nephrology recommendations - Monitor H/H and transfuse Hg < 7 mg/dL or platelets < 50 - Appreciate ID recommendations. Follow up on bartonella PCR and serology. 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 - Continue IV Ceftriaxone 2g QD, 100mg MWF after dialysis, oral Doxycycline 100mg BID, vancomycin 1g MWF after dialysis - Follow up on pathology review of BM slides. Interval History No acute events overnight. Doing well this morning. Denies any symptoms, no fever, chills, no shortness of breath. IV Lasix 120mg x 1 challenge 01/03 overnight -- minimal increase in UOP Physical Exam BP 116/72 Pulse 92 Temp 36.8 ?C (98.3 ?F) (Oral) Resp 18 Ht 193 cm (6' 4) Wt 114.5 kg (252 lb 6.4 oz) SpO2 90% BMI 30.72 kg/m? -I/O: Intake/Output Summary (Last 24 hours) at 01/04/18 09 Last data filed at 01/03/18 1800 Gross per 24 hour Intake 982 ml Output 0 ml Net 982 ml GENERAL: Alert, no distress, cooperative SKIN: Skin color, texture, turgor normal. No rashes or lesions. LUNGS: CTAB CARDIAC: Murmur 2/6, systolic, right upper sternal border ABDOMEN: Soft, non-distended, LLQ tenderness, +BS EXTREMETIES: No ulcers, 1-2+ pitting edema to knees NEURO: Alert, oriented X 3.?motor exam grossly normal. Sensation grossly intact., Cranial nerves II-XII intact PULSES: 2+ radial Medications Current hospital medications: senna-docusate 8.6-50 mg 1 tablet (SENNA-S) 1 tablet ORAL/FEEDING TUBE BID PRN polyethylene glycol 3350 17 g packet (MIRALAX, GLYCOLAX) 17 g ORAL DAILY PRN cefTRIAXone 2 g in D5W 100 mL MB+ (ROCEPHIN) 2 g INTRAVENOUS q 24 H gentamicin 100 mg in NaCl (iso-osmotic) 100 mL 100 mg INTRAVENOUS MO-WE-FR doxycycline hyclate 100 mg cap(s) (VIBRAMYCIN) 100 mg ORAL q 12 H vancomycin iv piggyback 1 g in D5W 200 mL (VANCOCIN) 1 g INTRAVENOUS MO-WE-FR diphenhydrAMINE 25 mg (BENADRYL) 25 mg ORAL q 6 H PRN sodium chloride 0.65 % 2 [place] (AYR, OCEAN) 2 [place] EACH NOSTRIL TID aspirin, enteric coated 81 mg tab(s) 81 mg ORAL DAILY metoprolol tartrate (short acting) 12.5 mg tab(s) (LOPRESSOR) 12.5 mg ORAL BID docusate sodium 100 mg cap(s) (COLACE) 100 mg ORAL BID sodium citrate 4% 3-6 mL catheter lock 3-6 mL INTRALUMINAL PRN tamsulosin ER 0.4 mg cap(s) (FLOMAX) 0.4 mg ORAL DAILY pantoprazole DR 40 mg tab(s) (PROTONIX) 40 mg ORAL BID levothyroxine 200 mcg tab(s) (SYNTHROID) 200 mcg ORAL BEFORE BREAKFAST DAILY atorvastatin 80 mg tab(s) (LIPITOR) 80 mg ORAL AT BEDTIME Labs CBC: Recent Labs 01/04/18 0431 01/03/18 0543 01/02/18 0527 01/01/18 0500 12/31/17 1349 12/31/17 0425 12/30/17 0541 12/29/17 1408 WBC 5.14 4.56 3.58* 3.71 3.46* 3.42* 4.87 4.62 HB 7.9* 8.1* 8.2* 8.2* 7.3* 6.9* 6.8* 7.4* HCT 24.3* 25.2* 26.2* 24.4* 22.5* 20.9* 20.6* 22.3* PLT 80* 76* 72* 73* 67* 66* 66* 64* MCV 93.8 94.4 96.3 93.5 94.1 93.7 93.2 94.1 RDWCV 17.2* 17.2* 17.4* 17.7* 18.1* 17.8* 17.9* 17.9* NEUTP 64.9 63.3 55.9 62.5 -- 63.4 71.3 72.3 ABSNEUT 3.32 2.89 1.98 2.32 -- 2.16 3.47 3.32 LYMPHP 25.5 25.9 33.8 27.5 -- 27.2 22.6 22.1 MONOP 8.2 9.2 9.2 8.9 -- 8.2 5.7 5.2 EODINP 0.6 0.9 0.8 0.8 -- 0.9 0.2 0.2 BMP: Recent Labs 01/04/18 0431 01/03/18 0543 01/02/18 0527 01/01/18 0500 12/31/17 0425 12/30/17 0541 12/29/17 0416 GLUC 86 82 83 82 83 87 99 NA 132* 135* 136 134* 137 135* 134* K 4.7 4.5 4.2 4.3 3.9 3.9 3.9 CHLOR 96* 97 99 96* 101 101 103 CO2 26 28 30 25 29 23 22 ANION 10 10 7* 13 7* 11 9 BUN 37* 32* 23 31* 22 34* 44* CREAT 6.61* 5.58* 4.51* 5.38* 3.92* 4.63* 4.74* CHEM: Recent Labs 01/04/18 0431 01/03/18 0543 01/02/18 0527 01/01/18 0500 12/31/17 0425 12/30/17 0541 12/29/17 0416 CA 7.6* 7.6* 7.6* 7.7* 7.2* 7.5* 7.5* MG 1.8 1.8 1.8 1.9 1.8 -- 1.7 HEPATIC: No results for input(s): ALKPHOS, ALT, AST, TBILI, LIPASE in the last 168 hours. COAG: Recent Labs 12/31/17 1349 12/30/17 0541 12/29/17 0228 APTT -- 36.5* 38.6* INR 1.4* -- -- URINALYSIS:No results for input(s): PH, SPGR, UGLUC, UBILI, UKET, UHB, UPROT, UROBIL, UWBC, SSA in the last 168 hours. Invalid input(s): NITR CARDIAC: No results for input(s): CKTEST, CKMB, CKMBP, TROPT, PBNP in the last 168 hours. Imaging ECHO TRANSESOPHAGEAL 01/01/2018 - Exam indication: ?Endocarditis - The left ventricle is normal in size. Left ventricular systolic function is normal. EF = 60 ? 5% (visual est.) - The right ventricle is dilated. Right ventricular systolic function is mildly decreased. - The left atrial cavity is dilated. - Previous RUDY ligation. Small residual RUDY. - The right atrial cavity is dilated. - There is moderate (2+ - 3+) tricuspid valve regurgitation. 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 There is moderately severe (3+) aortic valve regurgitation due to paravalvular endocarditis. - There is no patent foramen ovale as detected by Doppler and saline contrast. - The Aortic valve prosthesis appears to be well seated with evidence of mild degeneration and without any obvious mobile echodensity on its leaflets. There is thickening of the Aorto-Mitral curtain and posterior LA wall which is suggestive of either hematoma or active infection. - There does not appear to be any transvalvular AI however there is a diastolic flow arising from the subvalvular region which may (Clip #47, #42) or may represent 3+ paravalvular regurgitation with a very eccentric jet. Consider Cardiac CT for better characterization and to r/o the presence of a fistula or abscess. - There is a a small mobile echodensity within the RA which may be attached either ?to the Venous catheter or the atrial portion of one of the pacemaker leads (1.2cm ?x 0.55 cm, Clip #28). This may represent vegetation or thrombus. - Exam was compared with the prior CC echocardiographic exam performed on 12/25/2017. Thrombus/Vegetation on pacemaker lead/venous catheter and possible paralvalvular leak. XR CHEST 1V FRONTAL 12/27/2017 Lines, Tubes, and Devices: ?Right IJ line mid SVC. Stable pacemaker. Lungs and Pleura: ?Bilateral effusions and overlying opacity similar to prior. No pneumothorax. Cardiomediastinal silhouette: ?Stable cardiac silhouette. ? CT ABD/PEL WO IVCON 12/27/2017 LARGE LEFT RECTUS SHEATH HEMATOMA, STABLE OR SLIGHTLY INCREASED IN SIZE SINCE 12/25/2017. 3.3 CM ROUND LOW-ATTENUATION LESION ADJACENT TO THE CELIAC AXIS WHICH MAY BE AN ENLARGED LYMPH NODE. CHOLELITHIASIS WITHOUT EVIDENCE CHOLECYSTITIS. HEPATIC STEATOSIS. ? US ABD RT UPPER QUADRANT AND SPLEEN 12/26/2017 CHOLELITHIASIS IN A DISTENDED GALLBLADDER WITHOUT OTHER EVIDENCE OF ACUTE CHOLECYSTITIS. DIFFUSE HEPATIC STEATOSIS. The craniocaudal length of the spleen is 10.1 cm, normal. There are no splenic lesions. ? CT ABD/PEL WO IVCON 12/25/2017 Moderate LEFT rectus sheath hematoma Diffuse hepatic steatosis. 2.6 cm low-attenuation structure abutting the celiac, possibly an enlarged lymph node. ?Further evaluation with contrast-enhanced study should be considered. Cholelithiasis without evidence of acute cholecystitis. ? LEG DVT JORGE LUIS BOBBY 12/25/2017 RIGHT SIDE - DEEP VEINS Negative for acute deep vein thrombosis. Thickened red[place], patent distal external iliac vein and common femoral vein. Only segments visualized of the posterior tibial veins and peroneal veins. Multiple enlarged lymph nodes noted in the right groin with the largest measuring aproximately: 1.4 x 1.5 x 0.9 cm. RIGHT SIDE - SUPERFICIAL VEINS Thickened redmond, patent great saphenous?vein. LEFT SIDE - DEEP VEINS Only segments visualized of the posterior tibial veins and peroneal veins. Multiple enlarged lymph nodes noted in the right groin with the largest measuring aproximately: 2.3 x 1.8 x 0.7 cm. 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 ? XR CHEST 1V FRONTAL Lines, tubes, and devices: ?The patient is status post median sternotomy and left 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 clip placement. ?Left pacemaker device is in place with leads in the right atrium and the right ventricle. ?Surgical clips overlie the upper abdomen. Lungs and pleura: ?Patchy reticular opacities are noted, likely related to pulmonary edema. Hazy opacity overlying the right lung base is likely related to small right pleural effusion and adjacent atelectasis/consolidation. ?Also noted is trace left pleural effusion. ?A vertically oriented lucency overlying the right lower chest is favored to be a skinfold. Cardiomediastinal silhouette: ?Cardiac silhouette is enlarged with pulmonary venous congestion. ? ECHO 12/25/2017 - Technically difficult exam due to suboptimal positioning. - Exam indication: Initial evaluation of Heart Failure - The left ventricle is moderately dilated. There is moderate concentric left ventricular hypertrophy. Left ventricular systolic function is normal. EF = 66 ? 5% (2D biplane) - The right ventricle is normal in size. Right ventricular systolic function is normal. - The left atrial cavity is severely dilated. - The right atrial cavity is dilated. - There is moderate (2+) mitral valve regurgitation. Thickened mitral valve leaflets. - There is moderate (2+ - 3+) tricuspid valve regurgitation. 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 There is moderately severe (3+) aortic valve regurgitation. The peak gradient is 39 mmHg, the mean gradient is 17 mmHg and the dimensionless valve index is 0.53. There is both valvular and paravalvular AI. There is flow reversal in the descending aorta. - Estimated right ventricular systolic pressure is?likely underestimated due to a weak or incomplete tricuspid regurgitation signal and is, at least, 70 mmHg consistent with moderately severe pulmonary hypertension. Estimated right atrial pressure is 15 mmHg. - The patient has not had a prior CC echocardiographic exam for comparison. Assessment and Plan Mr. 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 MICU transfer to initiate dialysis secondary to volume overload. Patient is now anuric IRINA-D. 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 ? #Pancytopenia #Hemolytic anemia Presented with fatigue, shortness of breath History of UGIB secondary to Min-en-Y (most recently 2015), OSH EGD/C-scope/tagged RBC scan showed no evidence of bleed Requiring pRBC transfusion x 3 during this hospitalization Concerns for hemolytic process, not Petar driven--peripheral smear showed evidence of scant schistocytes, yojana cells, rare spherocytes, thrombocytopenia. ?Elevated Igs, will try to continue to workup lymphoproliferative process as potential etiology - Transfuse Hgb < 7, Plts < 50 ? #Atrial fibrillation S/p PPM for sick sinus syndrome Metoprolol 12.5mg BID home dose held for acute anemia, which has now stabilized HR in 80s-low 100s, HDS -Hold apixaban?for rectus sheath hematoma, will trial with heparin gtt, if tolerates, switch back to apixaban -Continue metoprolol 12.5mg BID -Tele ? #Rectus sheath hematoma Last imaging 12/27/17 showed 20 x 8.7 x 6.7 cm left rectus sheath hematoma, unclear etiology -Daily CBC -Will trial with heparin gtt, if tolerates, switch back to apixaban #Lymphadenopathy 3.3 x 2.9cm ?LN in celiac region, concern by Hematology for possible lymphoproliferative disorder -Hold on LN biopsies at this point -Appreciate ID recs. 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 -Continue IHD -Continue sodium bicarbonate 650mg TID -Daily BMP -f/u Nephrology recs ? #CAD Continue atorvastatin 80mg qHS ? #Mild protein-calorie malnutrition -Nutritional support ? #Hypothyroidism -Continue levothyroxine 200mcg qAM ? 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 - No evidence of pathologic lesion, blood cultures have been negative, has CHANDRAKANT positive for IE, no evidence of abscess, concerns that prior CVA/TIA were 2/2 mycotic aneurysm (no brain MRI performed to date, unable to be performed due to ESRD), and that IRINA is immunologic phenomena secondary to IE - By Zabala criteria, possible if no mycotic aneurysm, definite if mycotic aneurysm (or if +Bartonella serology) - Afebrile, HDS, negative blood cultures, no leukocytosis - Appreciate ID recs - f/u Bartonella serologies - Appreciate cardiology recs, ordered cardiac CT scan, will attempt to coordinate dialysis - Started on antibiotics as follows: IV Ceftriaxone 2g QD IV Gentamicin 300mg loading dose, 100mg MWF after dialysis Oral Doxycycline 100mg BID Vancomycin 1.5g loading dose, 1g MWF after dialysis Diet: Renal DVT PPx: IPCs GI PPx: Pantoprazole 40mg qDay Delano Nelson MD Internal Medicine, PGY-2 Pager [phone] 01/04/18 8:00 AM Note: These recommendations are not final until staffed by provider For questions regarding this patient, please page [phone] during 7 a.m. - 5 p.m. After 5 p.m., please page on-call Adrien pager [phone] for concerns. [facility] STAFF PHYSICIAN NOTE OF PERSONAL INVOLVEMENT IN CARE I have reviewed the progress note obtained and documented by the resident and I personally participated in the hernandez components. I have discussed the case and management of the patient's care. The following comments revise or confirm relevant hernandez components of their note. 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 ? He also had a bone marrow biopsy to evaluate pancytopenia to rule out myeloma process. ?This is being reviewed by our pathologists now (requested tissue block) ? Hospital course complicated by need for red cell and platelet transfusion as well as spontaneous rectus sheath hematoma, required CVVHD and then hemodialysis for hypoxemic respiratory failure and volume overload requiring MICU stay. ? 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 paravalvular leak with ? abscess/IE per hotel housekeeper, not entirely sure this represents IE, asked for CHANDRAKANT from 05/2017 from OSH, appreciate ID input also. ? ? no new complaints, seen in HD unit. Bartonella serologies pending ? ? Plan: hemodialysis per nephrology bartonella serologies (to be done 01/05) await path review of BMBx Blood cultures follow up antibiotics for presumed IE Appreciate consult teams input. ? Cintia Wiley MD ([facility]) [facility] Medicine Department Pager [phone] 01/04/2018 2:05 PM CBC AND DIFFERENTIAL Collected: 01/04/2018 Status: F Source: [facility] 4:31 AM [facility] REPOSITORY TYPE CODE TESTS RESULT OUT OF REFERENCE UNITS RANGE LAB WBC 3.70-11.00 k/uL WBC 5.14 LAB RBC 4.20-6.00 m/uL Low RBC 2.59 LAB HGB 13.0-17.0 g/dL Low Hemoglobin 7.9 LAB HCT 39.0-51.0 % Low Hematocrit 24.3 LAB MCV 80.0-100.0 fL MCV 93.8 LAB MCH 26.0-34.0 pG MCH 30.5 LAB MCHC 30.5-36.0 g/dL MCHC 32.5 LAB RDWCV 11.5-15.0 % RDW-CV High 17.2 LAB PLTCT 150-400 k/uL Low Platelet Count 80 Result Comment: No clot detected. LAB MPV 9.0-12.7 fL MPV 10.8 LAB ANEUT % Neut% 64.9 LAB AANEUT 1.45-7.50 k/uL Abs Neut 3.32 LAB ALYMP % Lymph% 25.5 LAB AALYMP 1.00-4.00 k/uL Abs Lymph 1.31 LAB AMONO % Pope% 8.2 LAB AAMONO <0.87 k/uL Abs Pope 0.42 LAB AEOS % Eosin% 0.6 LAB AAEOS <0.46 k/uL Abs Eosin 0.03 LAB ABASO % Baso% 0.8 LAB AABASO <0.11 k/uL Abs Baso 0.04 LAB AUNRBC 0 /100 WBC NRBCs 0.0 LAB ABNRBC <0.01 k/uL Absolute nRBC <0.01 LAB DTYP DTYPE Auto Diff Performed By: #### CBCDIF, BMP, MG1, PHOS #### [facility] [address] [place] [id number] BASIC METABOLIC PANL Collected: 01/04/2018 Status: F Source: [place] 4:31 AM [facility] REPOSITORY TYPE CODE TESTS RESULT OUT OF REFERENCE UNITS RANGE LAB GLU 74-99 mg/dL Glucose 86 Result Comment: The [place] Diabetes Association (ADA) provides guidance for cutoff values for fasting glucose and random glucose. The ADA defines fasting as no caloric intake for at least 8 hours. Fas ting plasma glucose results between 100 to 125 mg/dL indicate increased risk for diabetes (prediabetes). Fasting plasma glucose results greater than or equal to 126 mg/dL meet the criteria for diagnosis of diabetes. In the absence of unequivocal hyperglycemia, results should be confirmed by repeat testing. In a patient with classic symptoms of hyperglycemia or hyperglycemic crisis, random plasma glucose results greater than or equal to 200 mg/dL meet the criteria for diagnosis of diabetes. Reference: Standards of Medical Care in Diabetes 2016, [place] Diabetes Association. Diabetes Care. 2016.39(Suppl 1). LAB BUN 9-24 mg/dL BUN High 37 LAB CRET 0.73-1.22 mg/dL Creatinine High 6.61 LAB NA 136-144 mmol/L Low Sodium 132 LAB K 3.7-5.1 mmol/L Potassium 4.7 LAB CL 97-105 mmol/L Low Chloride 96 LAB CO2 22-30 mmol/L CO2 26 LAB AGAP 9-18 mmol/L Anion Gap 10 LAB CA 8.5-10.2 mg/dL Low Calcium, Total 7.6 LAB GFRAA eGFR- Amer. 10 LAB GFRNAA . eGFR-All Other Races 9 Result Comment: eGFR (Estimated GFR) Units of measure: mL/min/1.73 meters squared eGFR is derived from the reexpressed MDRD Study equation using the following parameters: serum creatinine, age, gender and race. The creatinine assay has been calibrated to be traceable to IDMS. An eGFR <60 mL/min/1.73m2 for >3 months is consistent with chronic kidney disease. Refer to KDOQI guidelines for clinical interpretation. In patients with unstable renal function, e.g. those with acute kidney injury, the eGFR may not accurately reflect actual GFR. Performed By: #### CBCDIF, BMP, MG1, PHOS #### [facility] [employer] [address] [address] MAGNESIUM Collected: 01/04/2018 Status: F Source: [place] 4:31 AM [facility] REPOSITORY TYPE CODE TESTS RESULT OUT OF REFERENCE UNITS RANGE LAB MG 1.7-2.3 mg/dL Magnesium 1.8 Performed By: #### CBCDIF, BMP, MG1, PHOS #### [facility] [employer] [address] [place] [address] PHOSPHORUS Collected: 01/04/2018 Status: F Source: [place] 4:31 AM [facility] REPOSITORY TYPE CODE TESTS RESULT OUT OF REFERENCE UNITS RANGE LAB PHOS 2.7-4.8 mg/dL Phosphorus 3.8 Performed By: #### CBCDIF, BMP, MG1, PHOS #### [facility] [employer] [address] [place] [address] ALLIED HEALTH Observed: 01/03/2018 Status: COMPLETED Source: [place] 6:05 PM [facility] REPOSITORY HNO ID: [id number] Author: Juan Regan (Chaplain), Student Service: Spiritual Care Author Type: Fixed Wing [employer] Crew Chief Type: Allied Health Filed: 01/03/2018 6:08 PM Note Text: SPIRITUALCARE Spiritual Care Visit- Brief Note Name: Frank Rivera Date: January 03, 2018 Notes: Visited Mr. Rivera upon the request of his family (01/31). They stated that they felt it would be helpful to have multiple people talking to him in order to keep his spirits up. When I visited his bedside he was not in the mood to talk and said that his switchboard clerk had been visiting the hospital. No further need from Spiritual Care at this time. [employer] Wing [employer] Crew Chief Signature: Chaplain Jessica To contact the Spiritual Care Department: Please call [phone] or Page the On-Call Fixed Wing Aircraft Crew Chief at pager [phone] Thank you for the opportunity to be of service. This is an electronically created document. IF PRINTED, PLEASE DO NOT REMOVE FROM THE CHART OR MODIFY PRINTED COPY. NURSING PROG Observed: 01/03/2018 Status: COMPLETED Source: [place] 2:14 PM [facility] REPOSITORY HNO ID: [id number] Author: Virginia (Rn) DIEUDONNE Borja Service: (none) Author Type: Registered Nurse Type: Nursing Progress Note Filed: 01/03/2018 2:17 PM Note Text: Nursing Progress Note Topic of Note: Daily Note Frank Rivera [id number] AANDOx3, VSS, paced on tele, denies pain. Sched meds as ordered--(SEE eMAR). Assisting with ADL's as needed, OOB w/ min assist (non-skid socks on, safety prec in place). Good po intake, herring intact/draining dark-brown, low out-put (receiving HD). Skin care protocol in place. Bed locked/in lowest position, call light within reach. Will continue to monitor. ? This note was completed by: Virginia Borja RN EKG1 Observed: 01/03/2018 Status: F Source: [place] 8:54 AM [facility] REPOSITORY NAME : FRANK RIVERA PID : [id number] : 1955 Gender : Male Race : ORD : Procedure Date : Jan 03 2018 08:54:35 Edit Date : Jan 05 2018 11:14:36 Diagnosis:SINUS RHYTHM WITH SINUS ARRHYTHMIA WITH OCCASIONAL PREMATURE VENTRICULAR COMPLEXES COMPLETE RIGHT BUNDLE BRANCH BLOCK ABNORMAL ECG Confirmed by GOPAL STAPLETON M.D. ([id number]) on 01/05/2018 11:14:28 AM Ventricular Rate : 69 BPM Atrial Rate : 72 BPM P-R Interval : 184 ms QRS Duration : 150 ms Q-T Interval : 434 ms QTC Calculation(Bezet) : 465 ms P Killbuck : 53 degrees R Killbuck : 120 degrees T Killbuck : 39 degrees Test Reason : Location : : [facility] 19 Overread By : GOPAL STAPLETON M.D. Edited By : GOPAL STAPLETON M.D. Referred By : , Acquired by : JANAE LANCE PROGRESS Observed: 01/03/2018 Status: COMPLETED Source: [place] 7:53 AM [facility] REPOSITORY O ID: [id number] Author: Riley Baumann Service: General Internal Medicine Author Type: Physician Type: Progress Notes Filed: 01/03/2018 1:40 PM Note Text: INPATIENT PROGRESS NOTE ATTENDING: Riley Baumann SERVICE DATE: 01/03/2018 SERVICE TIME: 7:30 AM For questions regarding this patient, please page [phone] during 7 a.m. - 5 p.m. After 5 p.m., please page on-call Adrien pager [phone] for concerns. Brief Plan - Continue hemodialysis as per nephrology recommendations - Monitor H/H and transfuse Hg < 7 mg/dL or platelets < 50 - Appreciate ID recommendations. Follow up on bartonella PCR and serology. 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 - Continue IV Ceftriaxone 2g QD, 100mg MWF after dialysis, oral Doxycycline 100mg BID, vancomycin 1g MWF after dialysis - Plan for a cardiac CT scan per cardiology recs for better delineation of the anatomy, coordinate with dialysis d/t contrasted study - Follow up on pathology review of BM slides. - PNH panel test with negative results Interval History No acute events overnight. Doing well this morning. Denies any symptoms, no fever, chills, no shortness of breath. Physical Exam BP 116/74 Pulse 69 Temp 36.6 ?C (97.9 ?F) (Oral) Resp 16 Ht 193 cm (6' 4) Wt 114.5 kg (252 lb 6.4 oz) SpO2 93% BMI 30.72 kg/m? -I/O: Intake/Output Summary (Last 24 hours) at 01/03/18 0753 Last data filed at 01/03/18 0600 Gross per 24 hour Intake 890 ml Output 2000 ml Net -1110 ml GENERAL: Alert, no distress, cooperative SKIN: Skin color, texture, turgor normal. No rashes or lesions. LUNGS: Bibasilar crackles CARDIAC: Murmur 2/6, systolic, right upper sternal border ABDOMEN: Soft, non-distended, LLQ tenderness, +BS EXTREMETIES: No ulcers, 2+ pitting edema to knees NEURO: Alert, oriented X 3.?motor exam grossly normal. Sensation grossly intact., Cranial nerves II-XII intact PULSES: 2+ radial Medications Current hospital medications: iv contrast (radiology procedure) INTRAVENOUS DIRECTED PRN cefTRIAXone 2 g in D5W 100 mL MB+ (ROCEPHIN) 2 g INTRAVENOUS q 24 H [START ON 01/04/2018] gentamicin 100 mg in NaCl (iso-osmotic) 100 mL 100 mg INTRAVENOUS MO-WE-FR doxycycline hyclate 100 mg cap(s) (VIBRAMYCIN) 100 mg ORAL q 12 H [START ON 01/04/2018] vancomycin iv piggyback 1 g in D5W 200 mL (VANCOCIN) 1 g INTRAVENOUS MO-WE-FR diphenhydrAMINE 25 mg (BENADRYL) 25 mg ORAL q 6 H PRN sodium chloride 0.65 % 2 [place] (AYR, OCEAN) 2 [place] EACH NOSTRIL TID aspirin, enteric coated 81 mg tab(s) 81 mg ORAL DAILY metoprolol tartrate (short acting) 12.5 mg tab(s) (LOPRESSOR) 12.5 mg ORAL BID senna-docusate 8.6-50 mg 1 tablet (SENNA-S) 1 tablet ORAL/FEEDING TUBE BID polyethylene glycol 3350 17 g packet (MIRALAX, GLYCOLAX) 17 g ORAL DAILY docusate sodium 100 mg cap(s) (COLACE) 100 mg ORAL BID sodium citrate 4% 3-6 mL catheter lock 3-6 mL INTRALUMINAL PRN tamsulosin ER 0.4 mg cap(s) (FLOMAX) 0.4 mg ORAL DAILY pantoprazole DR 40 mg tab(s) (PROTONIX) 40 mg ORAL BID levothyroxine 200 mcg tab(s) (SYNTHROID) 200 mcg ORAL BEFORE BREAKFAST DAILY atorvastatin 80 mg tab(s) (LIPITOR) 80 mg ORAL AT BEDTIME Labs CBC: Recent Labs 01/03/18 0543 01/02/18 0527 01/01/18 0500 12/31/17 1349 12/31/17 0425 12/30/17 0541 12/29/17 1408 12/29/17 0228 WBC 4.56 3.58* 3.71 3.46* 3.42* 4.87 4.62 4.58 HB 8.1* 8.2* 8.2* 7.3* 6.9* 6.8* 7.4* 7.1* HCT 25.2* 26.2* 24.4* 22.5* 20.9* 20.6* 22.3* 21.2* PLT 76* 72* 73* 67* 66* 66* 64* 60* MCV 94.4 96.3 93.5 94.1 93.7 93.2 94.1 92.6 RDWCV 17.2* 17.4* 17.7* 18.1* 17.8* 17.9* 17.9* 17.9* NEUTP 63.3 55.9 62.5 -- 63.4 71.3 72.3 74.8 ABSNEUT 2.89 1.98 2.32 -- 2.16 3.47 3.32 3.42 LYMPHP 25.9 33.8 27.5 -- 27.2 22.6 22.1 20.7 MONOP 9.2 9.2 8.9 -- 8.2 5.7 5.2 4.1 EODINP 0.9 0.8 0.8 -- 0.9 0.2 0.2 0.2 BMP: Recent Labs 01/03/18 0543 01/02/18 0527 01/01/18 0500 12/31/17 0425 12/30/17 0541 12/29/17 0416 12/27/17 2318 GLUC 82 83 82 83 87 99 81 NA 135* 136 134* 137 135* 134* 137 K 4.5 4.2 4.3 3.9 3.9 3.9 4.3 CHLOR 97 99 96* 101 101 103 110* CO2 28 30 25 29 23 22 20* ANION 10 7* 13 7* 11 9 7* BUN 32* 23 31* 22 34* 44* 52* CREAT 5.58* 4.51* 5.38* 3.92* 4.63* 4.74* 4.50* CHEM: Recent Labs 01/03/18 0543 01/02/18 0527 01/01/18 0500 12/31/17 0425 12/30/17 0541 12/29/17 0416 12/27/17 2318 12/27/172006 ALB -- -- -- -- -- -- 1.9* -- TPROT -- -- -- -- -- -- 6.1* -- CA 7.6* 7.6* 7.7* 7.2* 7.5* 7.5* 7.6* -- MG 1.8 1.8 1.9 1.8 -- 1.7 -- 1.8 HEPATIC: Recent Labs 12/27/172317 ALKPHOS 141* ALT 22 AST 32 TBILI 0.8 COAG: Recent Labs 12/31/17 1349 12/30/17 0541 12/29/17 0228 12/27/172317 APTT -- 36.5* 38.6* 36.5* INR 1.4* -- -- -- URINALYSIS:No results for input(s): PH, SPGR, UGLUC, UBILI, UKET, UHB, UPROT, UROBIL, UWBC, SSA in the last 168 hours. Invalid input(s): NITR CARDIAC: No results for input(s): CKTEST, CKMB, CKMBP, TROPT, PBNP in the last 168 hours. Imaging ECHO TRANSESOPHAGEAL 01/01/2018 - Exam indication: ?Endocarditis - The left ventricle is normal in size. Left ventricular systolic function is normal. EF = 60 ? 5% (visual est.) - The right ventricle is dilated. Right ventricular systolic function is mildly decreased. - The left atrial cavity is dilated. - Previous RUDY ligation. Small residual RUDY. - The right atrial cavity is dilated. - There is moderate (2+ - 3+) tricuspid valve regurgitation. 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 There is moderately severe (3+) aortic valve regurgitation due to paravalvular endocarditis. - There is no patent foramen ovale as detected by Doppler and saline contrast. - The Aortic valve prosthesis appears to be well seated with evidence of mild degeneration and without any obvious mobile echodensity on its leaflets. There is thickening of the Aorto-Mitral curtain and posterior LA wall which is suggestive of either hematoma or active infection. - There does not appear to be any transvalvular AI however there is a diastolic flow arising from the subvalvular region which may (Clip #47, #42) or may represent 3+ paravalvular regurgitation with a very eccentric jet. Consider Cardiac CT for better characterization and to r/o the presence of a fistula or abscess. - There is a a small mobile echodensity within the RA which may be attached either ?to the Venous catheter or the atrial portion of one of the pacemaker leads (1.2cm ?x 0.55 cm, Clip #28). This may represent vegetation or thrombus. - Exam was compared with the prior CC echocardiographic exam performed on 12/25/2017. Thrombus/Vegetation on pacemaker lead/venous catheter and possible paralvalvular leak. XR CHEST 1V FRONTAL 12/27/2017 Lines, Tubes, and Devices: ?Right IJ line mid SVC. Stable pacemaker. Lungs and Pleura: ?Bilateral effusions and overlying opacity similar to prior. No pneumothorax. Cardiomediastinal silhouette: ?Stable cardiac silhouette. ? CT ABD/PEL WO IVCON 12/27/2017 LARGE LEFT RECTUS SHEATH HEMATOMA, STABLE OR SLIGHTLY INCREASED IN SIZE SINCE 12/25/2017. 3.3 CM ROUND LOW-ATTENUATION LESION ADJACENT TO THE CELIAC AXIS WHICH MAY BE AN ENLARGED LYMPH NODE. CHOLELITHIASIS WITHOUT EVIDENCE CHOLECYSTITIS. HEPATIC STEATOSIS. ? US ABD RT UPPER QUADRANT AND SPLEEN 12/26/2017 CHOLELITHIASIS IN A DISTENDED GALLBLADDER WITHOUT OTHER EVIDENCE OF ACUTE CHOLECYSTITIS. DIFFUSE HEPATIC STEATOSIS. The craniocaudal length of the spleen is 10.1 cm, normal. There are no splenic lesions. ? CT ABD/PEL WO IVCON 12/25/2017 Moderate LEFT rectus sheath hematoma Diffuse hepatic steatosis. 2.6 cm low-attenuation structure abutting the celiac, possibly an enlarged lymph node. ?Further evaluation with contrast-enhanced study should be considered. Cholelithiasis without evidence of acute cholecystitis. ? LEG DVT JORGE LUIS BOBBY 12/25/2017 RIGHT SIDE - DEEP VEINS Negative for acute deep vein thrombosis. Thickened redmond, patent distal external iliac vein and common femoral vein. Only segments visualized of the posterior tibial veins and peroneal veins. Multiple enlarged lymph nodes noted in the right groin with the largest measuring aproximately: 1.4 x 1.5 x 0.9 cm. RIGHT SIDE - SUPERFICIAL VEINS Thickened redmond, patent great saphenous?vein. LEFT SIDE - DEEP VEINS Only segments visualized of the posterior tibial veins and peroneal veins. Multiple enlarged lymph nodes noted in the right groin with the largest measuring aproximately: 2.3 x 1.8 x 0.7 cm. 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 ? XR CHEST 1V FRONTAL Lines, tubes, and devices: ?The patient is status post median sternotomy and left 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 clip placement. ?Left pacemaker device is in place with leads in the right atrium and the right ventricle. ?Surgical clips overlie the upper abdomen. Lungs and pleura: ?Patchy reticular opacities are noted, likely related to pulmonary edema. Hazy opacity overlying the right lung base is likely related to small right pleural effusion and adjacent atelectasis/consolidation. ?Also noted is trace left pleural effusion. ?A vertically oriented lucency overlying the right lower chest is favored to be a skinfold. Cardiomediastinal silhouette: ?Cardiac silhouette is enlarged with pulmonary venous congestion. ? ECHO 12/25/2017 - Technically difficult exam due to suboptimal positioning. - Exam indication: Initial evaluation of Heart Failure - The left ventricle is moderately dilated. There is moderate concentric left ventricular hypertrophy. Left ventricular systolic function is normal. EF = 66 ? 5% (2D biplane) - The right ventricle is normal in size. Right ventricular systolic function is normal. - The left atrial cavity is severely dilated. - The right atrial cavity is dilated. - There is moderate (2+) mitral valve regurgitation. Thickened mitral valve leaflets. - There is moderate (2+ - 3+) tricuspid valve regurgitation. 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 There is moderately severe (3+) aortic valve regurgitation. The peak gradient is 39 mmHg, the mean gradient is 17 mmHg and the dimensionless valve index is 0.53. There is both valvular and paravalvular AI. There is flow reversal in the descending aorta. - Estimated right ventricular systolic pressure is?likely underestimated due to a weak or incomplete tricuspid regurgitation signal and is, at least, 70 mmHg consistent with moderately severe pulmonary hypertension. Estimated right atrial pressure is 15 mmHg. - The patient has not had a prior CC echocardiographic exam for comparison. Assessment and Plan Mr. 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 MICU transfer to initiate dialysis secondary to volume overload. Patient is now anuric IRINA-D. ? #Pancytopenia #Hemolytic anemia Presented with fatigue, shortness of breath History of UGIB secondary to Min-en-Y (most recently 2015), OSH EGD/C-scope/tagged RBC scan showed no evidence of bleed Requiring pRBC transfusion x 3 during this hospitalization Concerns for hemolytic process, not Petar driven--peripheral smear showed evidence of scant schistocytes, yojana cells, rare spherocytes, thrombocytopenia. ?Elevated Igs, will try to continue to workup lymphoproliferative process as potential etiology - Transfuse Hgb < 7, Plts < 50 ? #Atrial fibrillation S/p PPM for sick sinus syndrome Metoprolol 12.5mg BID home dose held for acute anemia, which has now stabilized HR in 80s-low 100s, HDS -Hold apixaban?for rectus sheath hematoma, will trial with heparin gtt, if tolerates, switch back to apixaban -Continue metoprolol 12.5mg BID -Tele ? #Rectus sheath hematoma Last imaging 12/27/17 showed 20 x 8.7 x 6.7 cm left rectus sheath hematoma, unclear etiology -Daily CBC -Will trial with heparin gtt, if tolerates, switch back to apixaban #Lymphadenopathy 3.3 x 2.9cm ?LN in celiac region, concern by Hematology for possible lymphoproliferative disorder -Hold on LN biopsies at this point -Appreciate ID recs. 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 -Continue IHD -Continue sodium bicarbonate 650mg TID -Daily BMP -f/u Nephrology recs ? #CAD Continue atorvastatin 80mg qHS ? #Mild protein-calorie malnutrition -Nutritional support ? #Hypothyroidism -Continue levothyroxine 200mcg qAM ? 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 - No evidence of pathologic lesion, blood cultures have been negative, has CHANDRAKANT positive for IE, no evidence of abscess, concerns that prior CVA/TIA were 2/2 mycotic aneurysm (no brain MRI performed to date), and that IRINA is immunologic phenomena secondary to IE - By Zabala criteria, possible if no mycotic aneurysm, definite if mycotic aneurysm (or if +Bartonella serology) - Afebrile, HDS, negative blood cultures, no leukocytosis - Appreciate ID recs - f/u Bartonella serologies - Appreciate cardiology recs, ordered cardiac CT scan, will attempt to coordinate dialysis - Started on antibiotics as follows: IV Ceftriaxone 2g QD IV Gentamicin 300mg loading dose, 100mg MWF after dialysis Oral Doxycycline 100mg BID Vancomycin 1.5g loading dose, 1g MWF after dialysis Diet: Renal DVT PPx: IPCs GI PPx: Pantoprazole 40mg qDay Delano Nelson MD Internal Medicine, PGY-2 Pager [phone] 01/03/18 8:00 AM Note: These recommendations are not final until staffed by provider For questions regarding this patient, please page [phone] during 7 a.m. - 5 p.m. After 5 p.m., please page on-call Adrien pager [phone] for concerns. [facility] STAFF: TEACHING PHYSICIAN NOTE OF PERSONAL INVOLVEMENT IN CARE I have reviewed the progress note?obtained and documented by the resident?and I personally participated in the hernanedz components. I have discussed the case and management of the patient's care with the resident. The following comments revise or confirm relevant hernandez components of the resident's note. ? 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 ? ? hx?aortic stenosis requiring aortic valve replacement and left 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 ablation hx?atrial fibrillation and sick sinus syndrome and pacemaker placement. ? He had a Min-en-Y bypass complicated by recurrent GI bleeds and iron deficiency anemia. He also had a bone marrow biopsy to evaluate pancytopenia to rule out myeloma process. ?This is being reviewed by our pathologists now (requested tissue block) Hospital course complicated by need for red cell and platelet transfusion as well as spontaneous rectus sheath hematoma. ?Was on apixaban, but this has been held. Eventually required CVVHD and then hemodialysis for hypoxemic respiratory failure and volume overload requiring MICU stay. 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 no new complaints Bartonella serologies pending CHANDRAKANT Shows ? paravalvular leak with ? abscess/IE per hotel housekeeper, not entirely sure this represents IE no new complaints today; no fevers or chills ? ? PLAN: hemodialysis per nephrology consider IV furosemide challenge check bartonella serologies (to be done 01/05) Cardiac CT to better characterize aortic valve process pending bartonella testing await path review of BMBx Blood cultures antibiotics for presumed IE Hold on further lymph node biopsies at this point Appreciate ID,?nephrology and hematology inputs. ? ? ? Care Coordination The majority of the visit was spent counseling and/or coordinating care for the patient. ?Rmhf-gw-iric time was 20?minutes ? Riley Baumann MD, FACP Pager / Date and Time of Service: Date: January 03, 2018 ???Time: 1:33 PM TYPE AND SCREEN Collected: 01/03/2018 Status: F Source: PLANO 7:01 AM [facility] REPOSITORY TYPE CODE TESTS RESULT OUT OF REFERENCE UNITS RANGE LAB %ABR A ABO/RH(D) POSITIVE LAB % Antibody NEG Screen Performed By: #### TSCR #### [facility] [employer] [address] [place], [place] [address] CBC AND DIFFERENTIAL Collected: 01/03/2018 Status: F Source: PLANO 5:43 AM [facility] REPOSITORY TYPE CODE TESTS RESULT OUT OF REFERENCE UNITS RANGE LAB WBC 3.70-11.00 k/uL WBC 4.56 LAB RBC 4.20-6.00 m/uL Low RBC 2.67 LAB HGB 13.0-17.0 g/dL Low Hemoglobin 8.1 LAB HCT 39.0-51.0 % Low Hematocrit 25.2 LAB MCV 80.0-100.0 fL MCV 94.4 LAB MCH 26.0-34.0 pG MCH 30.3 LAB MCHC 30.5-36.0 g/dL MCHC 32.1 LAB RDWCV 11.5-15.0 % RDW-CV High 17.2 LAB PLTCT 150-400 k/uL Low Platelet Count 76 Result Comment: No clot detected. LAB MPV 9.0-12.7 fL MPV 10.8 LAB ANEUT % Neut% 63.3 LAB AANEUT 1.45-7.50 k/uL Abs Neut 2.89 LAB ALYMP % Lymph% 25.9 LAB AALYMP 1.00-4.00 k/uL Abs Lymph 1.18 LAB AMONO % Pope% 9.2 LAB AAMONO <0.87 k/uL Abs Pope 0.42 LAB AEOS % Eosin% 0.9 LAB AAEOS <0.46 k/uL Abs Eosin 0.04 LAB ABASO % Baso% 0.7 LAB AABASO <0.11 k/uL Abs Baso 0.03 LAB AUNRBC 0 /100 WBC NRBCs 0.0 LAB ABNRBC <0.01 k/uL Absolute nRBC <0.01 LAB DTYP DTYPE Auto Diff Performed By: #### CBCDIF, BMP, MG1, PHOS #### [facility] [address] [place], [place] [address] BASIC METABOLIC PANL Collected: 01/03/2018 Status: F Source: PLANO 5:43 AM [facility] REPOSITORY TYPE CODE TESTS RESULT OUT OF REFERENCE UNITS RANGE LAB GLU 74-99 mg/dL Glucose 82 Result Comment: The [place] Diabetes Association (ADA) provides guidance for cutoff values for fasting glucose and random glucose. The ADA defines fasting as no caloric intake for at least 8 hours. Fas ting plasma glucose results between 100 to 125 mg/dL indicate increased risk for diabetes (prediabetes). Fasting plasma glucose results greater than or equal to 126 mg/dL meet the criteria for diagnosis of diabetes. In the absence of unequivocal hyperglycemia, results should be confirmed by repeat testing. In a patient with classic symptoms of hyperglycemia or hyperglycemic crisis, random plasma glucose results greater than or equal to 200 mg/dL meet the criteria for diagnosis of diabetes. Reference: Standards of Medical Care in Diabetes 2016, [place] Diabetes Association. Diabetes Care. 2016.39(Suppl 1). LAB BUN 9-24 mg/dL BUN High 32 LAB CRET 0.73-1.22 mg/dL Creatinine High 5.58 LAB NA 136-144 mmol/L Low Sodium 135 LAB K 3.7-5.1 mmol/L Potassium 4.5 LAB CL 97-105 mmol/L Chloride 97 LAB CO2 22-30 mmol/L CO2 28 LAB AGAP 9-18 mmol/L Anion Gap 10 LAB CA 8.5-10.2 mg/dL Low Calcium, Total 7.6 LAB GFRAA eGFR- Amer. 13 LAB GFRNAA . eGFR-All Other Races 10 Result Comment: eGFR (Estimated GFR) Units of measure: mL/min/1.73 meters squared eGFR is derived from the reexpressed MDRD Study equation using the following parameters: serum creatinine, age, gender and race. The creatinine assay has been calibrated to be traceable to IDMS. An eGFR <60 mL/min/1.73m2 for >3 months is consistent with chronic kidney disease. Refer to KDOQI guidelines for clinical interpretation. In patients with unstable renal function, e.g. those with acute kidney injury, the eGFR may not accurately reflect actual GFR. Performed By: #### CBCDIF, BMP, MG1, PHOS #### [facility] [address] [place], [place] [address] MAGNESIUM Collected: 01/03/2018 Status: F Source: PLANO 5:43 AM [facility] REPOSITORY TYPE CODE TESTS RESULT OUT OF REFERENCE UNITS RANGE LAB MG 1.7-2.3 mg/dL Magnesium 1.8 Performed By: #### CBCDIF, BMP, MG1, PHOS #### [facility] [address] [place], [place] [address] PHOSPHORUS Collected: 01/03/2018 Status: F Source: PLANO 5:43 AM [facility] REPOSITORY TYPE CODE TESTS RESULT OUT OF REFERENCE UNITS RANGE LAB PHOS 2.7-4.8 mg/dL Phosphorus 3.6 Performed By: #### CBCDIF, BMP, MG1, PHOS #### [facility] [address] [place] [id number] PLAN OF CARE Observed: 01/02/2018 Status: COMPLETED Source: PLANO 12:58 PM [facility] REPOSITORY HNO ID: [id number] Author: Russ Guevara MD (Fel) Service: Hematology Author Type: Fellow Type: Plan of Care Filed: 01/02/2018 1:01 PM Note Text: Brief Hematology Note: CHANDRAKANT done yesterday: The left atrial cavity is dilated. - Previous RUDY ligation. Small residual RUDY. - The right atrial cavity is dilated. - There is moderate (2+ - 3+) tricuspid valve regurgitation. 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 There is moderately severe (3+) aortic valve regurgitation due to paravalvular endocarditis. - There is no patent foramen ovale as detected by Doppler and saline contrast. - The Aortic valve prosthesis appears to be well seated with evidence of mild degeneration and without any obvious mobile echodensity on its leaflets. There is thickening of the Aorto-Mitral curtain and posterior LA wall which is suggestive of either hematoma or active infection. - There does not appear to be any transvalvular AI however there is a diastolic flow arising from the subvalvular region which may (Clip #47, #42) or may represent 3+ paravalvular regurgitation with a very eccentric jet. Consider Cardiac CT for better characterization and to r/o the presence of a fistula or abscess. - There is a a small mobile echodensity within the RA which may be attached either ?to the Venous catheter or the atrial portion of one of the pacemaker leads (1.2cm ?x 0.55 cm, Clip #28). This may represent vegetation or thrombus. No clear underlying primary bone marrow disorder to cause his cytopenias. Hematology team will sign off. Please call us back for transfusion/pre-op recommendations if this echodensity needed surgical intervention. Discussed with Dr. Adry Greer. Russ Guevara MD Hematology and Oncology Fellow Pager: [phone] January 02, 2018 ECG COMPLETE W Observed: 01/02/2018 Status: F Source: PLANO INTERPRETATION 12:45 PM [facility] REPOSITORY NAME : FRANK RIVERA PID : [id number] : 1955 Gender : Male Race : ORD : [id number] Procedure Date : Jan 02 2018 12:45:03 Edit Date : Jan 05 2018 11:13:49 Diagnosis:SINUS RHYTHM WITH PREMATURE ATRIAL COMPLEXES COMPLETE RIGHT BUNDLE BRANCH BLOCK ABNORMAL ECG Confirmed by GOPAL STAPLETON M.D. ([id number]) on 01/05/2018 11:13:38 AM Ventricular Rate : 62 BPM Atrial Rate : 62 BPM P-R Interval : 158 ms QRS Duration : 152 ms Q-T Interval : 444 ms QTC Calculation(Bezet) : 450 ms P Killbuck : -6 degrees R Killbuck : 93 degrees T Killbuck : 43 degrees Test Reason : Aortic Valve Disorder (NonRheumatic) Location : 84 : [facility] 19 Overread By : GOPAL STAPLETON M.D. Edited By : GOPAL STAPLETON M.D. Referred By : , Acquired by : TITI LINO CONSULT PROG Observed: 01/02/2018 Status: COMPLETED Source: PLANO 12:12 PM [facility] REPOSITORY HNO ID: [id number] Author: Vincent Coe Service: Nephrology Author Type: Physician Type: Consult Progress Note Filed: 01/02/2018 12:25 PM Note Text: CONSULT PROGRESS NOTE NEPHROLOGY SERVICE SERVICE DATE: 01/02/2018 SERVICE TIME: 12:12 PM Subjective INTERVAL HISTORY: Recieved IHD this AM with UF 2500 Gentamycin x 1 yesterday MEDICATIONS: Current Medications Reviewed Objective PHYSICAL EXAM: BP 136/67 Pulse 62 Temp 36.7 ?C (98 ?F) (Oral) Resp 16 Ht 193 cm (6' 4) Wt 114.5 kg (252 lb 6.4 oz) SpO2 94% BMI 30.72 kg/m? Intake/Output Summary (Last 24 hours) at 01/02/18 1212 Last data filed at 01/02/18 0952 Gross per 24 hour Intake 890 ml Output 2025 ml Net -1135 ml GEN: No acute distress. Cooperative. Alert and oriented x3. HEENT: NC/AT. Moist mucous membranes. RIJ c/d/i, nontender. RESP: CTAB, no rales/wheezes/rhonchi. Normal respiratory effort CV: RRR, ?S1, S2 normal, no murmurs/rubs/gallops. ABD: Soft. Nondistended, Nontender. Bowel sounds present. EXTR: Warm and perfused. Bilateral peripheral edema, pitting at ankles NEURO: CN II-XII grossly intact. No focal deficit. SKIN: Skin color, texture, turgor normal. No rashes or lesions on exposed skin. ACCESS: RIJ temporary dialysis catheter DATA: Diagnostic tests reviewed for today's visit: Most recent labs and imaging results. Recent Labs 01/02/1852601/01/18 0500 12/31/17 0425 12/30/17 0541 12/29/17 1408 12/29/17 0416 12/27/172006 NA 136 134* 137 135* -- 134* < > -- K 4.2 4.3 3.9 3.9 -- 3.9 < > -- CHLOR 99 96* 101 101 -- 103 < > -- CO2 30 25 29 23 -- 22 < > -- BUN 23 31* 22 34* -- 44* < > -- CREAT 4.51* 5.38* 3.92* 4.63* -- 4.74* < > -- GLUC 83 82 83 87 -- 99 < > -- ANION 7* 13 7* 11 -- 9 < > -- CA 7.6* 7.7* 7.2* 7.5* -- 7.5* < > -- P 3.3 3.9 3.0 3.8 4.4 4.1 < > 4.5 MG 1.8 1.9 1.8 -- -- 1.7 -- 1.8 < > = values in this interval not displayed. Recent Labs 01/02/1852601/01/18 0500 12/31/17 1349 WBC 3.58* 3.71 3.46* HB 8.2* 8.2* 7.3* HCT 26.2* 24.4* 22.5* PLT 72* 73* 67* Assessment/Plan 62 yo M w PMH of Afib on Eliquis s/p PPM/DCCV, s/p AVR, h/o CVA, iron def anemia, h/o gastric bypass, h/o GI bleed, hypothyroidism transferred for further evaluation of IRINA and hemolytic anemia. OSH?GI eval without source, + hemolysis, multiple pRBC transfusions locally, IRINA with cr 4.1 on admission Renal Bx 12/29/2017 ? 1. Anuric IRINA with concern for infection-related GN based on review of OSH renal bx slides (focal crescentic GN with IgM/C3 deposits). Started on HOSPICE ART THERAPIST on 12/27/2017. Concern for Bartonella IE. TTE: no vegetation. CHANDRAKANT: ? vegetation? Awaiting Bartonella PCR 2. Electrolytes: controlled on HOSPICE ART THERAPIST 3. Normocytic anemia-likely 2/2 acute blood loss and chronic disease requiring PRBCs. Awaiting OSH BM bx review by octaviano ackerman following 4. Access: LIJ NTDC placed 12/[address] abd with hematoma L rectus. 6.Volume overload PLAN -Dialysis MWF. -Give lasix challenge 120 mg IV - Renally dose medications ? Vincent Coe, DO NURSING PROG Observed: 01/02/2018 Status: COMPLETED Source: [place]ANO 11:30 AM [facility] REPOSITORY HNO ID: [id number] Author: Virginia (Rn) DIEUDONNE Borja Service: (none) Author Type: Registered Nurse Type: Nursing Progress Note Filed: 01/02/2018 11:50 AM Note Text: Nursing Progress Note Topic of Note: Daily Note Frank Rivera [id number] AANDOx3, VSS, paced on tele, denies pain. Pt had dialysis this a.m. Sched meds as ordered--(SEE eMAR). Assisting with ADL's as needed, sits up to recliner, good po intake, herrign intact/draining dark-brown, low out-put (receiving HD). Skin care AND safety protocol in place. Bed locked/in lowest position, call light within reach. Will continue to monitor. This note was completed by: Virginia Borja RN CONSULT Observed: 01/02/2018 Status: COMPLETED Source: PLANO 8:10 AM [facility] REPOSITORY HNO ID: [id number] Author: Jeannette Carrizales Service: Cardiovascular Medicine Author Type: Physician Type: Consults Filed: 01/03/2018 6:55 AM Note Text: CARDIOLOGY CONSULT HISTORY AND PHYSICAL PLEASE DO NOT REMOVE FROM THE CHART OR MODIFY PRINTED COPY STAFF CRIMINAL PROFILER: Dr. Jeannette Carrizales Requesting Provider: Dr. 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 CHANDRAKANT done yesterday showed evidence of paravalvular endocarditis + echodensity within the RA which may be either a vegetation or thrombus. When we talked to the patient he denied feeling chest pain, fevers, or chills. PAST MEDICAL HISTORY: PAST MEDICAL HISTORY Diagnosis Date - Aortic stenosis - Atrial fibrillation (HCC) - CAD (coronary artery disease) of bypass graft - CVA, old, dysphagia - Heyd's syndrome (HCC) - History of Min-en-Y gastric bypass - HTN (hypertension) - Hx of sick sinus syndrome PAST SURGICAL HISTORY: PAST SURGICAL HISTORY Procedure Laterality Date - CARPAL TUNNEL - DIALYSIS CATHETER PROCEDURE (W NOTE) 12/27/2017 - GASTRIC BYPASS, MIN-EN-Y 1996 - PERCUT AORTIC VALVE REPLACE 05/07/2017 FAMILY HISTORY: FAMILY HISTORY Problem Relation Age of Onset - Ischemic Heart Disease Mother - other (hypothyroidism) Mother - Ischemic Heart Disease Father - Thyroid Cancer Sister SOCIAL HISTORY: Social History Substance Use Topics - Smoking status: Current Every Day Smoker Types: Cigars, Cigarettes - Smokeless tobacco: Not on file Comment: States he quit cigarretes years ago 25 yr ppd previously, last had cigar in october - Alcohol use No MEDICATIONS: Prior to Admission Medications: atorvastatin (LIPITOR) 80 mg tablet Take 80 mg by mouth once daily. hydrALAZINE (APRESOLINE) 25 mg tablet Take 25 mg by mouth every 8 hours. ascorbic acid-ascorbate sodium 500 mg chew Take 500 mg by mouth once daily. levothyroxine (LEVOXYL) 200 mcg tablet Take 200 mcg by mouth daily before breakfast. magnesium oxide 200 mg magnesium tab Take 2 tablets by mouth once daily. metoprolol tartrate, short acting, (LOPRESSOR) 25 mg tablet Take 12.5 mg by mouth twice daily. ferrous sulfate 325 mg (65 mg iron) tablet Take 325 mg by mouth daily with breakfast. predniSONE (DELTASONE) 20 mg tablet Take 60 mg by mouth once daily. pantoprazole DR (PROTONIX) 20 mg tablet Take 40 mg by mouth twice daily. cyanocobalamin (VITAMIN B-12) 100 mcg tab Take 500 mcg by mouth once daily. apixaban (ELIQUIS) 5 mg tab(s) Take 5 mg by mouth twice daily. Current hospital medications: cefTRIAXone 2 g in D5W 100 mL MB+ (ROCEPHIN) 2 g INTRAVENOUS q 24 H [START ON 01/04/2018] gentamicin 100 mg in NaCl (iso-osmotic) 100 mL 100 mg INTRAVENOUS MO-WE-FR doxycycline hyclate 100 mg cap(s) (VIBRAMYCIN) 100 mg ORAL q 12 H [START ON 01/04/2018] vancomycin iv piggyback 1 g in D5W 200 mL (VANCOCIN) 1 g INTRAVENOUS MO-WE-FR diphenhydrAMINE 25 mg (BENADRYL) 25 mg ORAL q 6 H PRN oxymetazoline 0.05 % 2 [place] (GENASAL) 2 [place] EACH NOSTRIL BID sodium chloride 0.65 % 2 [place] (AYR, OCEAN) 2 [place] EACH NOSTRIL TID aspirin, enteric coated 81 mg tab(s) 81 mg ORAL DAILY metoprolol tartrate (short acting) 12.5 mg tab(s) (LOPRESSOR) 12.5 mg ORAL BID senna-docusate 8.6-50 mg 1 tablet (SENNA-S) 1 tablet ORAL/FEEDING TUBE BID polyethylene glycol 3350 17 g packet (MIRALAX, GLYCOLAX) 17 g ORAL DAILY docusate sodium 100 mg cap(s) (COLACE) 100 mg ORAL BID sodium citrate 4% 3-6 mL catheter lock 3-6 mL INTRALUMINAL PRN tamsulosin ER 0.4 mg cap(s) (FLOMAX) 0.4 [address] ORAL DAILY [address]op[address] 40 mg tab(s) (PROTONIX) 40 mg ORAL BID levothyroxine 200 mcg tab(s) (SYNTHROID) 200 mcg ORAL BEFORE BREAKFAST DAILY atorvastatin 80 mg tab(s) (LIPITOR) 80 mg ORAL AT BEDTIME ALLERGIES: Penicillin COMPLETE REVIEW OF SYSTEMS: Negative except for HPI PHYSICAL EXAM: Vital Signs 01/01/18 1700 01/01/186 01/01/188 01/02/18 0600 BP: 116/66 101/56 125/62 Pulse: 70 71 (!) 58 Resp: 18 16 Temp: 36.7 ?C (98.1 ?F) 36.6 ?C (97.9 ?F) 36.3 ?C (97.3 ?F) TempSrc: Oral Oral Oral SpO2: 90% 93% 93% 94% Weight: Height: Temp (24hrs), Av.5 ?C (97.7 ?F), Min:36.3 ?C (97.3 ?F), Max:36.7 ?C (98.1 ?F) Intake/Output: Intake/Output Summary (Last 24 hours) at 01/02/18 0811 Last data filed at 01/02/18 0600 Gross per 24 hour Intake 890 ml Output 2525 ml Net -1635 ml PHYSICAL EXAM: Gen: AANDO x 3 Neck: JVD present + positive hepatojugular reflex Cardiac: S1+S2 + soft early diastolic murmur heard best at left sternal border Resp: clear to auscultation bilaterally Abd: Soft, non-tender. Ext: Pitting edema of BL LE Neuro: Motor and sensory grossly intact Labs: Invalid input(s): MBP Recent Labs 01/02/18 0501/01/18 0500 12/31/17 1349 WBC 3.58* 3.71 3.46* HB 8.2* 8.2* 7.3* HCT 26.2* 24.4* 22.5* PLT 72* 73* 67* Recent Labs 12/31/17 1349 INR 1.4* Recent Labs 01/02/18 0527 01/01/18 0500 12/31/17 0425 NA 136 134* 137 K 4.2 4.3 3.9 CHLOR 99 96* 101 CO2 30 25 29 BUN 23 31* 22 CREAT 4.51* 5.38* 3.92* GLUC 83 82 83 Cardiac Assessment: ECG (01/01): - NSR, complete RBBB Echo (01/01): CONCLUSIONS: - Exam indication: ?Endocarditis - The left ventricle is normal in size. Left ventricular systolic function is normal. EF = 60 ? 5% (visual est.) - The right ventricle is dilated. Right ventricular systolic function is mildly decreased. - The left atrial cavity is dilated. - Previous RUDY ligation. Small residual RUDY. - The right atrial cavity is dilated. - There is moderate (2+ - 3+) tricuspid valve regurgitation. 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 There is moderately severe (3+) aortic valve regurgitation due to paravalvular endocarditis. - There is no patent foramen ovale as detected by Doppler and saline contrast. - The Aortic valve prosthesis appears to be well seated with evidence of mild degeneration and without any obvious mobile echodensity on its leaflets. There is thickening of the Aorto-Mitral curtain and posterior LA wall which is suggestive of either hematoma or active infection. - There does not appear to be any transvalvular AI however there is a diastolic flow arising from the subvalvular region which may (Clip #47, #42) or may represent 3+ paravalvular regurgitation with a very eccentric jet. Consider Cardiac CT for better characterization and to r/o the presence of a fistula or abscess. - There is a a small mobile echodensity within the RA which may be attached either ?to the Venous catheter or the atrial portion of one of the pacemaker leads (1.2cm ?x 0.55 cm, Clip #28). This may represent vegetation or thrombus. ? - Exam was compared with the prior echocardiographic exam performed on 12/25/2017. Thrombus/Vegetation on pacemaker lead/venous catheter and possible paralvalvular leak. ASSESSMENT AND PLAN: 62 year old male who presents with a PMHx of atrial fibrillation and SSS s/p PPM, HTN, hypothyroidism, aortic stenosis s/p AVR and RUDY (04/2017), history of Min-en-Y bypass c/b recurrent GIB, ADRIANNE, B12 deficiency, who presents to [facility] on 12/24/17 with fatigue and shortness of breath who was transferred from OSH with IRINA and renal biopsy concerning for C3 nephropathy + hemolytic anemia requiring transfusions. 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 Upon our review of the echo images, it was unclear if the findings indicated presence of endocarditis, particularly with the lack of vegetations. The findings could be explained by post-operative changes. The patient doesn't seem to have clear clinical features of infective endocarditis, and cultures have been negative so far. Recommendations: - Continue ABx management per ID recs - The diagnosis of infective endocarditis has to be made based on clinical features, with imaging as confirmation. If primary team and ID are convinced the patient clinically has IE Darell Blanco MD Internal Medicine Resident, PGY-1 Pager: [phone] ; 8:25 AM, January 02, 2018 Note is not complete until signed by the attending [facility] STAFF PHYSICIAN NOTE OF PERSONAL INVOLVEMENT IN CARE Impression/Plan: Mr. Rivera is a 62 yo gentleman s/p AVR 04/2017, afib, PPM, admitted with fatigue, SOB, anemia, ARF. CHANDRAKANT obtained to evaluate for endocarditis, significant for paravalvular leak and perivalvular thickening. Cardiology consulted for these reasons. CHANDRAKANT findings on their own are not diagnostic of endocarditis. There are no mobile echodensities on the AV. There is some mild paravalvular thickening, but this can be nonspecific after surgery- it would be helpful to get the CHANDRAKANT images that he had 05/2017. In the meantime it does seem reasonable to continue infectious work up and treat empirically per ID recommendations. If he is clinically felt to have endocarditis, then he may need AV surgery, but it would better to have more definitive evidence to make sure that any infection is being treated appropriately prior to considering valve surgery. He does have significant paravalvular AI that was not optimally visualized on CHANDRAKANT. CT could be helpful in evaluating his AVR further, however, this would require contrast and given that his renal failure is still relatively recent, no need for this at this time. I have reviewed the documentation obtained and documented by the Fellow/Resident/TIME CLOCK MECHANIC/PA and have reviewed and updated the problem list as appropriate. I have personally performed a face to face assessment of the patient and have personally participated in the hernandez components. I have discussed the case and management of the patient's care. STAFF PHYSICIAN: Jeannette Carrizales MD Date of Service: 01/02/18 PROGRESS Observed: 01/02/2018 Status: COMPLETED Source: [place] 7:19 AM [facility] REPOSITORY HNO ID: [id number] Author: Jami Proctor MD Service: General Internal Medicine Author Type: Resident Type: Progress Notes Filed: 01/02/2018 2:49 PM Note Text: INPATIENT PROGRESS NOTE ATTENDING: Riley Baumann SERVICE DATE: 01/02/2018 SERVICE TIME: 7:19 AM For questions regarding this patient, please page [phone] during 7 a.m. - 5 p.m. After 5 p.m., please page on-call Adrien pager [phone] for concerns. Brief Plan - Continue hemodialysis as per nephrology recommendations - Monitor H/H and transfuse Hg < 7 mg/dL or platelets < 50 - Appreciate ID recommendations. Follow up on bartonella PCR and serology. 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 Started on antibiotics as follows: - IV Ceftriaxone 2g QD - IV Gentamicin 300mg loading dose, 100mg MWF after dialysis - Oral Doxycycline 100mg BID - Vancomycin 1.5g loading dose, 1g MWF after dialysis - Plan for a cardiac CT scan per cardiology recs for better delineation of the anatomy - Appreciate hematology recommendations, follow up on pathology review of BM slides. - PNH panel test with negative results Interval History No acute events overnight. Doing well this morning. Denies any symptoms, no fever, chills, no shortness of breath. Was off oxygen during the encounter this morning Physical Exam BP 125/62 Pulse (!) 58 Temp 36.3 ?C (97.3 ?F) (Oral) Resp 16 Ht 193 cm (6' 4) Wt 114.5 kg (252 lb 6.4 oz) SpO2 94% BMI 30.72 kg/m? -I/O: Intake/Output Summary (Last 24 hours) at 01/02/18 0719 Last data filed at 01/02/18 0600 Gross per 24 hour Intake 850 ml Output 2525 ml Net -1675 ml GENERAL: Alert, no distress, cooperative SKIN: Skin color, texture, turgor normal. No rashes or lesions. LUNGS: Bibasilar crackles CARDIAC: Murmur 2/6, systolic, right upper sternal border ABDOMEN: Soft, non-distended, LLQ tenderness, +BS EXTREMETIES: No ulcers, 2+ pitting edema to knees NEURO: Alert, oriented X 3.?motor exam grossly normal. Sensation grossly intact., Cranial nerves II-XII intact PULSES: 2+ radial Medications Current hospital medications: cefTRIAXone 2 g in D5W 100 mL MB+ (ROCEPHIN) 2 g INTRAVENOUS q 24 H [START ON 01/04/2018] gentamicin 100 mg in NaCl (iso-osmotic) 100 mL 100 mg INTRAVENOUS MO-WE-FR doxycycline hyclate 100 mg cap(s) (VIBRAMYCIN) 100 mg ORAL q 12 H [START ON 01/04/2018] vancomycin iv piggyback 1 g in D5W 200 mL (VANCOCIN) 1 g INTRAVENOUS MO-WE-FR diphenhydrAMINE 25 mg (BENADRYL) 25 mg ORAL q 6 H PRN oxymetazoline 0.05 % 2 [place] (GENASAL) 2 [place] EACH NOSTRIL BID sodium chloride 0.65 % 2 [place] (AYR, OCEAN) 2 [place] EACH NOSTRIL TID aspirin, enteric coated 81 mg tab(s) 81 mg ORAL DAILY metoprolol tartrate (short acting) 12.5 mg tab(s) (LOPRESSOR) 12.5 mg ORAL BID senna-docusate 8.6-50 mg 1 tablet (SENNA-S) 1 tablet ORAL/FEEDING TUBE BID polyethylene glycol 3350 17 g packet (MIRALAX, GLYCOLAX) 17 g ORAL DAILY docusate sodium 100 mg cap(s) (COLACE) 100 mg ORAL BID sodium citrate 4% 3-6 mL catheter lock 3-6 mL INTRALUMINAL PRN tamsulosin ER 0.4 mg cap(s) (FLOMAX) 0.4 mg ORAL DAILY pantoprazole DR 40 mg tab(s) (PROTONIX) 40 mg ORAL BID levothyroxine 200 mcg tab(s) (SYNTHROID) 200 mcg ORAL BEFORE BREAKFAST DAILY atorvastatin 80 mg tab(s) (LIPITOR) 80 mg ORAL AT BEDTIME Labs CBC: Recent Labs 01/02/18 0527 01/01/18 0500 12/31/17 1349 12/31/17 0425 12/30/17 0541 12/29/17 1408 12/29/17 0228 12/28/17 1845 WBC 3.58* 3.71 3.46* 3.42* 4.87 4.62 4.58 3.83 HB 8.2* 8.2* 7.3* 6.9* 6.8* 7.4* 7.1* 7.3* HCT 26.2* 24.4* 22.5* 20.9* 20.6* 22.3* 21.2* 22.2* PLT 72* 73* 67* 66* 66* 64* 60* 59* MCV 96.3 93.5 94.1 93.7 93.2 94.1 92.6 91.7 RDWCV 17.4* 17.7* 18.1* 17.8* 17.9* 17.9* 17.9* 18.0* NEUTP 55.9 62.5 -- 63.4 71.3 72.3 74.8 70.1 ABSNEUT 1.98 2.32 -- 2.16 3.47 3.32 3.42 2.67 LYMPHP 33.8 27.5 -- 27.2 22.6 22.1 20.7 23.8 MONOP 9.2 8.9 -- 8.2 5.7 5.2 4.1 5.5 EODINP 0.8 0.8 -- 0.9 0.2 0.2 0.2 0.3 BMP: Recent Labs 01/02/1852601/01/1849912/31/1742412/30/17 0541 12/29/17 0416 12/27/17 2318 12/26/17 2156 12/26/17 1750 GLUC 83 82 83 87 99 81 96 81 NA 136 134* 137 135* 134* 137 140 139 K 4.2 4.3 3.9 3.9 3.9 4.3 4.4 5.2* CHLOR 99 96* 101 101 103 110* 116* 112* CO2 30 25 29 23 22 20* 15* 17* ANION 7* 13 7* 11 9 7* 9 10 BUN 23 31* 22 34* 44* 52* 60* 68* CREAT 4.51* 5.38* 3.92* 4.63* 4.74* 4.50* 5.01* 5.43* CHEM: Recent Labs 01/02/1852601/01/18 05012/31/1742412/30/17 0541 12/29/17 0416 12/27/17 2318 12/27/17200612/26/17215512/26/17 175 ALB -- -- -- -- -- 1.9* -- -- -- TPROT -- -- -- -- -- 6.1* -- -- -- CA 7.6* 7.7* 7.2* 7.5* 7.5* 7.6* -- 7.1* 7.9* MG 1.8 1.9 1.8 -- 1.7 -- 1.8 1.8 -- HEPATIC: Recent Labs 12/27/17231712/26/172327 ALKPHOS 141* -- ALT 22 -- AST 32 -- TBILI 0.8 0.7 COAG: Recent Labs 12/31/17 1349 12/30/17 0541 12/29/178 12/27/17231712/27/1735212/26/17232712/26/172155 APTT -- 36.5* 38.6* 36.5* 31.0 Blood/Anticoagulant Ratio in tube unsatisfactory. -- INR 1.4* -- -- -- -- -- 1.6* URINALYSIS:No results for input(s): PH, SPGR, UGLUC, UBILI, UKET, UHB, UPROT, UROBIL, UWBC, SSA in the last 168 hours. Invalid input(s): NITR CARDIAC: Recent Labs 12/26/171753 CKMBP 1.8 Imaging ECHO TRANSESOPHAGEAL 01/01/2018 - Exam indication: ?Endocarditis - The left ventricle is normal in size. Left ventricular systolic function is normal. EF = 60 ? 5% (visual est.) - The right ventricle is dilated. Right ventricular systolic function is mildly decreased. - The left atrial cavity is dilated. - Previous RUDY ligation. Small residual RUDY. - The right atrial cavity is dilated. - There is moderate (2+ - 3+) tricuspid valve regurgitation. 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 There is moderately severe (3+) aortic valve regurgitation due to paravalvular endocarditis. - There is no patent foramen ovale as detected by Doppler and saline contrast. - The Aortic valve prosthesis appears to be well seated with evidence of mild degeneration and without any obvious mobile echodensity on its leaflets. There is thickening of the Aorto-Mitral curtain and posterior LA wall which is suggestive of either hematoma or active infection. - There does not appear to be any transvalvular AI however there is a diastolic flow arising from the subvalvular region which may (Clip #47, #42) or may represent 3+ paravalvular regurgitation with a very eccentric jet. Consider Cardiac CT for better characterization and to r/o the presence of a fistula or abscess. - There is a a small mobile echodensity within the RA which may be attached either ?to the Venous catheter or the atrial portion of one of the pacemaker leads (1.2cm ?x 0.55 cm, Clip #28). This may represent vegetation or thrombus. - Exam was compared with the prior CC echocardiographic exam performed on 12/25/2017. Thrombus/Vegetation on pacemaker lead/venous catheter and possible paralvalvular leak. XR CHEST 1V FRONTAL 12/27/2017 Lines, Tubes, and Devices: ?Right IJ line mid SVC. Stable pacemaker. Lungs and Pleura: ?Bilateral effusions and overlying opacity similar to prior. No pneumothorax. Cardiomediastinal silhouette: ?Stable cardiac silhouette. ? CT ABD/PEL WO IVCON 12/27/2017 LARGE LEFT RECTUS SHEATH HEMATOMA, STABLE OR SLIGHTLY INCREASED IN SIZE SINCE 12/25/2017. 3.3 CM ROUND LOW-ATTENUATION LESION ADJACENT TO THE CELIAC AXIS WHICH MAY BE AN ENLARGED LYMPH NODE. CHOLELITHIASIS WITHOUT EVIDENCE CHOLECYSTITIS. HEPATIC STEATOSIS. ? US ABD RT UPPER QUADRANT AND SPLEEN 12/26/2017 CHOLELITHIASIS IN A DISTENDED GALLBLADDER WITHOUT OTHER EVIDENCE OF ACUTE CHOLECYSTITIS. DIFFUSE HEPATIC STEATOSIS. The craniocaudal length of the spleen is 10.1 cm, normal. There are no splenic lesions. ? CT ABD/PEL WO IVCON 12/25/2017 Moderate LEFT rectus sheath hematoma Diffuse hepatic steatosis. 2.6 cm low-attenuation structure abutting the celiac, possibly an enlarged lymph node. ?Further evaluation with contrast-enhanced study should be considered. Cholelithiasis without evidence of acute cholecystitis. ? LEG DVT JORGE LUIS BOBBY 12/25/2017 RIGHT SIDE - DEEP VEINS Negative for acute deep vein thrombosis. Thickened redmond, patent distal external iliac vein and common femoral vein. Only segments visualized of the posterior tibial veins and peroneal veins. Multiple enlarged lymph nodes noted in the right groin with the largest measuring aproximately: 1.4 x 1.5 x 0.9 cm. RIGHT SIDE - SUPERFICIAL VEINS Thickened redmond, patent great saphenous?vein. LEFT SIDE - DEEP VEINS Only segments visualized of the posterior tibial veins and peroneal veins. Multiple enlarged lymph nodes noted in the right groin with the largest measuring aproximately: 2.3 x 1.8 x 0.7 cm. 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 ? XR CHEST 1V FRONTAL Lines, tubes, and devices: ?The patient is status post median sternotomy and left 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 clip placement. ?Left pacemaker device is in place with leads in the right atrium and the right ventricle. ?Surgical clips overlie the upper abdomen. Lungs and pleura: ?Patchy reticular opacities are noted, likely related to pulmonary edema. Hazy opacity overlying the right lung base is likely related to small right pleural effusion and adjacent atelectasis/consolidation. ?Also noted is trace left pleural effusion. ?A vertically oriented lucency overlying the right lower chest is favored to be a skinfold. Cardiomediastinal silhouette: ?Cardiac silhouette is enlarged with pulmonary venous congestion. ? ECHO 12/25/2017 - Technically difficult exam due to suboptimal positioning. - Exam indication: Initial evaluation of Heart Failure - The left ventricle is moderately dilated. There is moderate concentric left ventricular hypertrophy. Left ventricular systolic function is normal. EF = 66 ? 5% (2D biplane) - The right ventricle is normal in size. Right ventricular systolic function is normal. - The left atrial cavity is severely dilated. - The right atrial cavity is dilated. - There is moderate (2+) mitral valve regurgitation. Thickened mitral valve leaflets. - There is moderate (2+ - 3+) tricuspid valve regurgitation. 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 There is moderately severe (3+) aortic valve regurgitation. The peak gradient is 39 mmHg, the mean gradient is 17 mmHg and the dimensionless valve index is 0.53. There is both valvular and paravalvular AI. There is flow reversal in the descending aorta. - Estimated right ventricular systolic pressure is?likely underestimated due to a weak or incomplete tricuspid regurgitation signal and is, at least, 70 mmHg consistent with moderately severe pulmonary hypertension. Estimated right atrial pressure is 15 mmHg. - The patient has not had a prior CC echocardiographic exam for comparison. Assessment and Plan Mr. 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 MICU transfer to initiate dialysis secondary to volume overload. Patient is now non-oliguric IRINA-D. ? #Pancytopenia #Hemolytic anemia Presented with fatigue, shortness of breath History of UGIB secondary to Min-en-Y (most recently 2015), OSH EGD/C-scope/tagged RBC scan showed no evidence of bleed Requiring pRBC transfusion x 3 during this hospitalization Concerns for hemolytic process, not Petar driven--peripheral smear showed evidence of scant schistocytes, yojana cells, rare spherocytes, thrombocytopenia. ?Elevated Igs, will try to continue to workup lymphoproliferative process as potential etiology - Transfuse Hgb < 7, Plts < 50 - F/u Hematology recs -- if no plans for LN excisional biopsy, ?restart prednisone 60mg - PNH panel test with negative results? ? #Atrial fibrillation S/p PPM for sick sinus syndrome Metoprolol 12.5mg BID home dose held for acute anemia, which has now stabilized HR in 80s-low 100s, HDS -Hold apixaban?for rectus sheath hematoma, will trial with heparin gtt, if tolerates, switch back to apixaban -Continue metoprolol 12.5mg BID -Tele ? #Rectus sheath hematoma Last imaging 12/27/17 showed 20 x 8.7 x 6.7 cm left rectus sheath hematoma, unclear etiology -Daily CBC -Will trial with heparin gtt, if tolerates, switch back to apixaban #Lymphadenopathy 3.3 x 2.9cm ?LN in celiac region, concern by Hematology for possible lymphoproliferative disorder -Hold on LN biopsies at this point -Appreciate ID recs. 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 -Continue IHD -Continue sodium bicarbonate 650mg TID -Daily BMP -f/u Nephrology recs ? #CAD Continue atorvastatin 80mg qHS ? #Mild protein-calorie malnutrition -Nutritional support ? #Hypothyroidism -Continue levothyroxine 200mcg qAM ? 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 - 5 p.m. After 5 p.m., please page on-call Adrien pager [phone] for concerns. CBC AND DIFFERENTIAL Collected: 01/02/2018 Status: F Source: [place] 5:27 AM [facility] REPOSITORY TYPE CODE TESTS RESULT OUT OF REFERENCE UNITS RANGE LAB WBC 3.70-11.00 k/uL Low WBC 3.58 LAB RBC 4.20-6.00 m/uL Low RBC 2.72 LAB HGB 13.0-17.0 g/dL Low Hemoglobin 8.2 LAB HCT 39.0-51.0 % Low Hematocrit 26.2 LAB MCV 80.0-100.0 fL MCV 96.3 LAB MCH 26.0-34.0 pG MCH 30.1 LAB MCHC 30.5-36.0 g/dL MCHC 31.3 LAB RDWCV 11.5-15.0 % RDW-CV High 17.4 LAB PLTCT 150-400 k/uL Low Platelet Count 72 Result Comment: No clot detected. LAB MPV 9.0-12.7 fL MPV 10.5 LAB ANEUT % Neut% 55.9 LAB AANEUT 1.45-7.50 k/uL Abs Neut 1.98 LAB ALYMP % Lymph% 33.8 LAB AALYMP 1.00-4.00 k/uL Abs Lymph 1.21 LAB AMONO % Pope% 9.2 LAB AAMONO <0.87 k/uL Abs Pope 0.33 LAB AEOS % Eosin% 0.8 LAB AAEOS <0.46 k/uL Abs Eosin 0.03 LAB ABASO % Baso% 0.3 LAB AABASO <0.11 k/uL Abs Baso <0.03 LAB AUNRBC 0 /100 WBC NRBCs 0.0 LAB ABNRBC <0.01 k/uL Absolute nRBC <0.01 LAB DTYP DTYPE Auto Diff Performed By: #### CBCDIF, BMP, MG1, PHOS #### [facility] [address] [place], [place] [address] BASIC METABOLIC PANL Collected: 01/02/2018 Status: F Source: [place] 5:27 AM [facility] REPOSITORY TYPE CODE TESTS RESULT OUT OF REFERENCE UNITS RANGE LAB GLU 74-99 mg/dL Glucose 83 Result Comment: The [place] Diabetes Association (ADA) provides guidance for cutoff values for fasting glucose and random glucose. The ADA defines fasting as no caloric intake for at least 8 hours. Fas ting plasma glucose results between 100 to 125 mg/dL indicate increased risk for diabetes (prediabetes). Fasting plasma glucose results greater than or equal to 126 mg/dL meet the criteria for diagnosis of diabetes. In the absence of unequivocal hyperglycemia, results should be confirmed by repeat testing. In a patient with classic symptoms of hyperglycemia or hyperglycemic crisis, random plasma glucose results greater than or equal to 200 mg/dL meet the criteria for diagnosis of diabetes. Reference: Standards of Medical Care in Diabetes 2016, [place] Diabetes Association. Diabetes Care. 2016.39(Suppl 1). LAB BUN 9-24 mg/dL BUN 23 LAB CRET 0.73-1.22 mg/dL Creatinine High 4.51 LAB NA 136-144 mmol/L Sodium 136 LAB K 3.7-5.1 mmol/L Potassium 4.2 LAB CL 97-105 mmol/L Chloride 99 LAB CO2 22-30 mmol/L CO2 30 LAB AGAP 9-18 mmol/L Low Anion Gap 7 LAB CA 8.5-10.2 mg/dL Low Calcium, Total 7.6 LAB GFRAA eGFR- Amer. 16 LAB GFRNAA . eGFR-All Other Races 13 Result Comment: eGFR (Estimated GFR) Units of measure: mL/min/1.73 meters squared eGFR is derived from the reexpressed MDRD Study equation using the following parameters: serum creatinine, age, gender and race. The creatinine assay has been calibrated to be traceable to IDMS. An eGFR <60 mL/min/1.73m2 for >3 months is consistent with chronic kidney disease. Refer to KDOQI guidelines for clinical interpretation. In patients with unstable renal function, e.g. those with acute kidney injury, the eGFR may not accurately reflect actual GFR. Performed By: #### CBCDIF, BMP, MG1, PHOS #### [facility] [employer] [address] [place] [address] MAGNESIUM Collected: 01/02/2018 Status: F Source: [place] 5:27 AM [facility] REPOSITORY TYPE CODE TESTS RESULT OUT OF REFERENCE UNITS RANGE LAB MG 1.7-2.3 mg/dL Magnesium 1.8 Performed By: #### CBCDIF, BMP, MG1, PHOS #### [facility] [employer] [address] [place] [address] PHOSPHORUS Collected: 01/02/2018 Status: F Source: [place] 5:27 AM [facility] REPOSITORY TYPE CODE TESTS RESULT OUT OF REFERENCE UNITS RANGE LAB PHOS 2.7-4.8 mg/dL Phosphorus 3.3 Performed By: #### CBCDIF, BMP, MG1, PHOS #### [facility] [employer] [address] [place], [place] [address] ECG COMPLETE W Observed: 01/01/2018 Status: F Source: [place] INTERPRETATION 6:11 PM [facility] REPOSITORY NAME : FRANK RIVERA PID : [id number] : 1955 Gender : Male Race : ORD : [id number] Procedure Date : Jan 01 2018 18:11:49 Edit Date : Jan 05 2018 11:13:22 Diagnosis:NORMAL SINUS RHYTHM COMPLETE RIGHT BUNDLE BRANCH BLOCK ABNORMAL ECG Confirmed by GOPAL STAPLETON M.D. ([id number]) on 01/05/2018 11:13:15 AM Ventricular Rate : 81 BPM Atrial Rate : 81 BPM P-R Interval : 142 ms QRS Duration : 142 ms Q-T Interval : 400 ms QTC Calculation(Bezet) : 464 ms P Killbuck : 68 degrees R Killbuck : 80 degrees T Killbuck : 41 degrees Test Reason : Aortic Valve Disorder (NonRheumatic) Location : : [facility] Overread By : GOPAL STAPLETON M.D. Edited By : GOPAL STAPLETON M.D. Referred By : , Acquired by : KIDNEY,PETR THERAPY NT Observed: 01/01/2018 Status: COMPLETED Source: [place] 5:16 PM [facility] REPOSIT[facility] HNO ID: [id number] Author: Loki MariePtJennifer Lei Service: Physical Therapy Author Type: Physical Therapist Type: Therapy (PT/OT/Speech/Resp) Filed: 01/01/2018 5:24 PM Note Text: Physical Therapy Treatment SERVICE DATE: 01/01/2018 SERVICE TIME: 1627 to 1650 ROOM: [place] [address] (CARD FUNCTION LAB J1-5 (J1-5 Echo/CHANDRAKANT)) Recommended Discharge Disposition: Home PT Recommended Discharge Disposition Comments: Pt may progress to Home without PT needs Anticipated Discharge Needs: Physical Assist at Home Physical Assist at Home for: Transportation;Shopping;Laundry;Cleaning Recommended Discharge Equipment: To Be Determined PT Recommendations to Nursing: Ambulate without device;To bathroom;In halls;OOB for Meals;Transfer to/from chair;With assist of 1 person Device: No Device PT 6 Clicks Score: 23 Precautions/Activity Restrictions: Lines/Tubes/Drains;Abdominal ASSESSMENT : Pt able to progress all mobility performances this date with decreased assist and completed standing strengthening exercises. Pt continues to present with decreased activity tolerance and is not at baseline of PLOF. Will continue to rec Home PT but may progress to Home pending LOS and improved activity tolerance. Patient Disposition at Start of Session: OOB in Chair;Call [facility] in Reach;Family Present Patient Disposition at End of Session: OOB in Chair;Call [facility] in Reach;Family Present Tolerated Full Session Physical Therapy Problem List: Education Deficit;Impaired Self Care;Functional Mobility Impairment Patient /Caregiver Goals: Go Home;Care For Self Goals for Plan of Care: Transfer supine to/from sit with: Independent Transfer sit to/from stand with: Independent Ambulate with: Independent Distance: 500 Device: No Device Ambulate up and down steps with: Independent Number of steps: 2 Device: (No AD) Progress Toward Goals: Progressing as expected PLAN: Treatment Frequency (times per week): 3 Current admission Treatment Interventions: Education;Self Care / Home Management;Energy Conservation Training;Strengthening;Functional Mobility Training;Balance Training;Neuromuscular Re-education;Pain Management Plan of Care developed with: Patient TREATMENT INTERVENTIONS: Therapy Diagnosis: Reduced mobility-other Interventions Provided: Therapeutic Exercise (71057);Gait Training (61844) Therapeutic Exercise (32919) Treatment Minutes: 13 1 unit Skilled Intervention(s): Instruction in performance and dosing of therapeutic exercises listed below. Verbal and tactile cuing provided for optimal performance, efficiency, and eccentric control. Facilitation of muscle control, optimal recruitment and alignment of joints during exercises listed below. Education in performing these exercises and benefits of doing so to improve strength, blood flow, and overall functional mobility and capacity. Pt performed the following standing exercises listed below with verbal and tactile cuing PRN for performance and maximal strengthening benefits: -hip flex, 15x ea -hip ABD, 15x ea -hip ext, 15x ea -knee flex, 15x -mini squats, 20x -toe raises, 20x Gait Training (81282) Treatment Minutes: 10 1 unit Skilled Intervention(s): Pt performed 1 bout(s) of ambulation of 480' with no AD, appropriate level of hands on assist, verbal cueing, and facilitation described below. Pt completed without seated rest break and without any onset of adverse physiologic symptoms during bout(s). PT provided VC throughout bout(s) as needed to improve and promote upright posture, increase step length and renate, improve step through pattern, improve heel strike, and for assessment of any pt self-reported physiologic symptoms. Pt demonstrated good carryover with this. Pt completed 1 bout(s) of stair negotiation of 4 steps with unilateral handrail supportwhile PT provided CGA support and verbal cues as needed for safe and efficient performance. Pt did not demonstrate unsteadiness during bout. PT also educated pt on always maintaining and utilizing available handrail support for safety, pace of activity, and for appropriate foot placement on each step and with turning to decrease risk of falls. Pt was receptive to this education and demonstrated safe performance negotiating stairs following this. Total Timed Code Treatment Minutes: 23 Total Treatment Time (minutes): 23 FUNCTIONAL G CODE: PT 6 Clicks Score: 23 (01/01/18 1627) Mobility: Walking and Moving Around Current Status (G8978): CJ (12/29/17899) Mobility: Walking and Moving Around Goal Status (G8979): CI (12/29/17899) Based on clinical assessment and the score on the 6 Clicks Functional Assessment Tool, the G code and corresponding severity modifiers are documented above. SUBJECTIVE: Current Hospital Course: Chart reviewed and no significant medical updates relevant to therapy were noted Patient Report: They still need to find a diagnosis. I have dialysis everyday. 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) OBJECTIVE: Mini Cog Score: 5 (12/28/17 0835) CURRENT FUNCTIONAL STATUS: Current Functional Mobility Assist Level Additional Information Rolling Independent Supine to Sit Stand By Assistance Sit to Supine Stand By Assistance Scooting Modified Independent Sit to Stand Modified Independent Stand to Sit Modified Independent Bed to Chair Toilet/Commode Gait Supervision Gait Device: None Gait Distance (feet): 480 Stairs Contact Guard Assistance Stairs Device: Rail Number of Stairs: 4 Curb Step Car Transfer *BLANK LIMA INDICATE ACTIVITY NOT ATTEMPTED EITHER D/T SAFETY CONCERNS, COMPLIANCE OR NOT INDICATED D/T PATIENT'S PERFORMANCE AND MEDICAL STATUS. General Gait Deviations: Renate decreased;Lateral sway increased;Step length decreased Balance: Static Sitting;Dynamic Sitting;Static Standing;Dynamic Standing Static Sitting Balance: Independent Dynamic Sitting Balance: Independent Static Standing Balance: Modified Independent Dynamic Standing Balance: Contact Guard Assistance Please see discipline specific clinical documentation flowsheet for complete details for this therapy evaluation/treatment. SIGNATURE: Loki Lei PT PATIENT NAME: Frank Rivera DATE: January 01, 2018 TIME: 5:16 PM BARTONELLA AB PANEL Collected: 01/01/2018 Status: F Source: [place] 5:07 PM [facility] REPOSITORY TYPE CODE TESTS RESULT OUT OF REFERENCE UNITS RANGE LAB BHENSG B. High henselae IgG >1:1024 Ab Result Comment: (NOTE) INTERPRETIVE INFORMATION: Bartonella henselae Ab, IgG Less than 1:64 ....... Negative: No significant level of Bartonella henselae IgG antibody detected. 1:64 - 1:128 ......... Equivocal: Questionable presence of Bartonella henselae IgG antibody detected. Repeat testing in 10-14 days may be helpful. 1:256 or greater ..... Positive: Presence of IgG antibody to Bartonella henselae detected, suggestive of current or past infection. A low positive suggests past exposure or infection, while high positive results may indicate recent or current infection, but are inconclusive for diagnosis. Seroconversion between acute and convalescent sera is considered strong evidence of recent infection. The best evidence for infection is significant change on two appropriately timed specimens where both tests are done in the same laboratory at the same time. Test developed and characteristics determined by [facility]. See Compliance Statement A: [facility] [facility] BHENSM Abnormal B. Alert henselae IgM Ab 1:64 Result Comment: (NOTE) INTERPRETIVE INFORMATION: Bartonella henselae Antibody, IgM Less than 1:16 ...... Negative: No significant level of Bartonella henselae IgM antibody detected. 1:16 or greater ..... Positive: Presence of IgM antibody to Bartonella henselae detected, suggestive of current or recent infection. The presence of IgM antibodies suggest recent infection, low levels of IgM antibodies may occasionally persist for more than 12 months post infection. Test developed and characteristics determined by [facility] [employer]. See Compliance Statement A: [facility] [facility] BQUING Abnormal B. Alert amato IgG Ab 1:1024 Result Comment: (NOTE) INTERPRETIVE INFORMATION: Bartonella amato Antibody, IgG Less than 1:64 ....... Negative: No significant level of Bartonella amato IgG antibody detected. 1:64 - 1:128 ........ Equivocal: Questionable presence of Bartonella amato IgG antibody detected. Repeat testing in 10-14 days may be helpful. 1:256 or greater ..... Positive: Presence of IgG antibody to Bartonella amato detected, suggestive of current or past infection. A low positive suggests past exposure or infection, while high positive results may indicate recent or current infection, but is inconclusive for diagnosis. Seroconversion between acute and convalescent sera is considered strong evidence of recent infection. The best evidence for infection is a significant change on two appropriately timed specimens where both tests are done in the same laboratory at the same time. Test developed and characteristics determined by [facility]. See Compliance Statement A: [facility] [facility] BQUINM B. amato IgM Ab < 1:16 Result Comment: (NOTE) INTERPRETIVE INFORMATION: Bartonella amato Ab, IgM Less than 1:16 ...... Negative-No significant level of Bartonella amato IgM antibody detected. 1:16 or greater ..... Positive-Presence of IgM antibody to Bartonella amato detected, suggestive of current or recent infection. The presence of IgM antibodies suggests recent infection. Low levels of IgM antibodies may occasionally persist for more than 12 months post-infection. Test developed and characteristics determined by [facility]. See Compliance Statement A: [facility]/ Performed by [facility], [address] [place] [address] [email or web address], Bipin Lockett MD, Lab. Director Performed By: #### BARTAB #### [facility] [address] [place] [address] [phone] CNOV Observed: 01/01/2018 Status: COMPLETED Source: [place] 4:15 PM [facility] REPOSITORY Office Visit (CAFLMN) FRANK RIVERA ([id number]) 1955 M [facility] Date Time Provider Department 01/01/18 4:15 PM IP TRANSESOPHAGEAL ECHO CAFLMN During your visit today, we recorded the following information about you: Kesha Dhaliwal RN, RN 01/01/2018 3:42 PM Signed AMBULATORY PATIENT EDUCATION TOPIC: CHANDRAKANT Procedure READINESS TO LEARN COGNITIVE ABILITY: Alert and oriented MOTIVATION TO LEARN: Interested FAMILY SUPPORT: Unable to assess - Family not present INSTRUCTION PROVIDED TO: Patient PATIENT LEARNS BEST BY: Individual Instruction Verbal Instruction FACTORS AFFECTING LEARNING: None PHYSICAL LIMITATIONS AFFECTING LEARNING: None LEARNING RESPONSE DIAGNOSIS: R/O Endocarditis METHOD OF INSTRUCTION: Individual instruction Verbal instruction PATIENT / FAMILY RESPONSE: Verbalizes understanding of: POST-OPERATIVE INSTRUCTIONS-Correct actions to take to reduce postoperative complications PRE-PROCEDURE INSTRUCTIONS-Correct action to take to follow pre-procedure instructions FOLLOW-UP PLAN: Complete - No need for follow-up SUPPLEMENTAL MATERIAL: Procedure discharge instructions REFERRAL (RECOMMENDATION): None Electronically Signed By Kesha Dhaliwal RN In Department: CARDIOLOGY Referring Provider: RILEY BAUMANN [[id number]] Allergies As of Date: 01/01/2018 Noted Allergy Reaction PENICILLIN 12/24/2017 4 - Hives Date Reviewed: 01/01/2018 Reviewed by: Joie (Rn) DIEUDONNE Bundy - Fully Assessed Reason for Visit: Procedure [88] Cmt: CHANDRAKANT Primary Visit Diagnosis:Acute and subacute bacterial endocarditis [I33.0] Prescriptions as of 01/01/2018 Sig: ATORVASTATIN 80 MG TABLET Take 80 mg by mouth once charleen* HYDRALAZINE 25 MG TABLET Take 25 mg by mouth every 8 h* ASCORBIC ACID-ASCORBATE SODIU* Take 500 mg by mouth once azucena* LEVOTHYROXINE 200 MCG TABLET Take 200 mcg by mouth daily b* MAGNESIUM 200 MG ( MAGNESIU* Take 2 tablets by mouth once * METOPROLOL TARTRATE 25 MG TAB* Take 12.5 mg by mouth twice d* FERROUS SULFATE 325 MG (65 MG* Take 325 mg by mouth daily wi* PREDNISONE 20 MG TABLET Take 60 mg by mouth once charleen* PANTOPRAZOLE 20 MG TABLET,DEL* Take 40 mg by mouth twice azucena* CYANOCOBALAMIN (VIT B-12) 100* Take 500 mcg by mouth once da* APIXABAN 5 MG TABLET Take 5 mg by mouth twice charleen* Problem List As Of Date 01/01/2018 Noted Resolved IRINA (acute kidney injury) (HCC) [N17.9] INVALID FOR* More... Malnutrition of mild degree (HCC) [E44.1] INVALID FOR* Hyperkalemia [E87.5] INVALID FOR* More... Rectus sheath hematoma [S30.1XXA] INVALID FOR* More... Anemia [D64.9] INVALID FOR* More... Thrombocytopenia (HCC) [D69.6] INVALID FOR* More... Lymphadenopathy [R59.1] INVALID FOR* More... Atrial fibrillation (HCC) [I48.91] INVALID FOR* More... CVA, old, dysphagia [I69.391] INVALID FOR* More... CAD (coronary artery disease) [I25.10] INVALID FOR* More... HTN (hypertension) [I10] INVALID FOR* More... 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 Obesity, Class I, BMI 30-34.9 [E66.9] INVALID FOR* Encounter Status:Closed by KESHA DHALIWAL on 01/01/18 THERAPY NT Observed: 01/01/2018 Status: COMPLETED Source: [place] 2:08 PM [facility] REPOSITORY HNO ID: [id number] Author: Nikole Baca Service: Occupational Therapy Author Type: Occupational Therapist Type: Therapy (PT/OT/Speech/Resp) Filed: 01/01/2018 2:08 PM Note Text: OCCUPATIONAL THERAPY MISSED VISIT SERVICE DATE: 01/01/2018 SERVICE TIME: 1408 to 1408 ROOM: [place] [id number] (CARD FUNCTION LAB J1-5 (J1-5 Echo/CHANDRAKANT)) Attempted Treatment. Patient not seen due to Test/Procedure. SIGNATURE: GERRI Campos/Jenni PATIENT NAME: Frank Rivera DATE: January 01, 2018 TIME: 2:08 PM PROGRESS Observed: 01/01/2018 Status: COMPLETED Source: [place] 1:32 PM [facility] REPOSITORY HNO ID: [id number] Author: Kesha (Dieudonne) DIEUDONNE Dhaliwal Service: (none) Author Type: Registered Nurse Type: Progress Notes Filed: 01/01/2018 3:42 PM Note Text: AMBULATORY PATIENT EDUCATION TOPIC: CHANDRAKANT Procedure READINESS TO LEARN COGNITIVE ABILITY: Alert and oriented MOTIVATION TO LEARN: Interested FAMILY SUPPORT: Unable to assess - Family not present INSTRUCTION PROVIDED TO: Patient PATIENT LEARNS BEST BY: Individual Instruction Verbal Instruction FACTORS AFFECTING LEARNING: None PHYSICAL LIMITATIONS AFFECTING LEARNING: None LEARNING RESPONSE DIAGNOSIS: R/O Endocarditis METHOD OF INSTRUCTION: Individual instruction Verbal instruction PATIENT / FAMILY RESPONSE: Verbalizes understanding of: POST-OPERATIVE INSTRUCTIONS-Correct actions to take to reduce postoperative complications PRE-PROCEDURE INSTRUCTIONS-Correct action to take to follow pre-procedure instructions FOLLOW-UP PLAN: Complete - No need for follow-up SUPPLEMENTAL MATERIAL: Procedure discharge instructions REFERRAL (RECOMMENDATION): None Electronically Signed By Kesha Dhaliwal RN In Department: CARDIOLOGY CONSULT PROG Observed: 01/01/2018 Status: COMPLETED Source: [place] 11:02 AM [facility] REPOSITORY HNO ID: [id number] Author: Russ Guevara MD (Fel) Service: Hematology Author Type: Fellow Type: Consult Progress Note Filed: 01/01/2018 11:35 AM Note Text: [facility] Inpatient Consult Progress Note Reason for consultation: Concern for autoimmune hemolytic anemia INTERVAL HISTORY: In dialysis this a.m Hgb 8.2 (post 2 PRBC yesterday), PLT 73 Pathology pending from 12/29 Primary team working towards scheduling the CHANDRAKANT Bartonella AB ordered per ID team HISTORY OF PRESENT ILLNESS From initial consult note: Mr. Rivera is a 62 year old man with history of afib s/p PPM and DCCV, on apixaban, HTN, hypothyroid, aortic stenosis s/p bioprosthetic ACR and RUDY ligation, sick sinus syndrome, h/o CVA, retinal embolism, h/o Min-en-Y bypass, chronic iron deficiency anemia, UGIB (1997, 2014, 2015) who presented to OSH with several weeks of worsening fatigue and shortness of breath. PCP ordered a CBC which was notable for Hgb ~7.5. He was admitted to OSH for further work up. On presentation he was noted to have guaiac pos stool and IRINA with Cr 4.12/BUN 70. He underwent GI work up with EGD, colonoscopy, and tagged RBC scan which were all negative. Renal function did not improve and he ultimately underwent a renal biopsy with prelim concerns for C3 nephropathy. A BMBX was also performed looking for plasma cell neoplasm given anemia and acute renal failure. Notable Labs at OSH on 12/23: CBC WBC 3.8, Hg 8.4, Plt 84 CMP Na 141, K 5.6, Chloride 119, CO2 17, BUN 60, Cr 3.71 Total protein 7 IgG 3273 H IgA 349 IgM 159 Albumin 2.4 Albmin/glboulin 0.6 Alpha 1 gloublins Lis 0.2 Alpha 2 globulins Lis 0.5 Beta glboluins Lis 0.87 Gamma globulins 4.6 (H) Complement C3 64 (L) Complement C4 17 Free [place] 402.7 (H) Free Lambda 378.8 (H) Free [place]/Lambda ratio 1.06 ? 12/24 labs: CBC shows WBC 3.2, Hg 7.8, Plt 80 CMP shows Na 141, K 5.3, CO2 17, Chlroide 118, BUN 61, Cr 4.07, Phosphorsu 5.5 Bone marrow biopsy (full results in patient record on nursing floor): Normocellular marrow with mild plasmacytosis. Iron-absent Peripheral blood-macrocytic anemia and thrombocytopenia. Flow cytometry study from [facility] shows no evidence for abnormal myeloid maturation or an increased blast population. There is no evidence for a lymphoproliferative disorder or plasma cell neoplasm. Cytogenetic studies are pending at this time. ? Kidney biopsy (full report in his patient record on nursing floor): -Glomeruli showing focal segmental mesangiolysis (3 of 28 glomeruli), vague nodularity (2 of 28 glomeruli) and a single cellular crescent (1 of 28 glomeruli). -Mild tubular injury. -Moderate interstitial fibrosis and tubular atrophy. -strong granular IgM and C3 staining on immunofluorescence, with weak granular staining for C1q and kappa and lambda light chains. -Electron microscopy with occasional, poorly definied electron- dense areas in mesangium. ? Patient reporting lower abd pain, more significant on Left lower quadrant which started today. Reports decreased urine output. Urine that he does make is tea colored, no cruz blood, non-foamy. He reports fluid retention and 10+lb weight gain since hospitalization. Denies recent tobacco or alcohol intake. 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 He has received 6U PRBC and 2U PLT transfusions at OSH prior to transfer. ROS: 01/03 reviewed and negative except as above ALLERGIES ALLERGIES Allergen Reactions - Penicillin Hives MEDICATIONS Current Facility-Administered Medications: oxymetazoline 0.05 % 2 [place] (GENASAL) 2 [place] EACH NOSTRIL BID sodium chloride 0.65 % 2 [place] (AYR, OCEAN) 2 [place] EACH NOSTRIL TID aspirin, enteric coated 81 mg tab(s) 81 mg ORAL DAILY metoprolol tartrate (short acting) 12.5 mg tab(s) (LOPRESSOR) 12.5 mg ORAL BID senna-docusate 8.6-50 mg 1 tablet (SENNA-S) 1 tablet ORAL/FEEDING TUBE BID polyethylene glycol 3350 17 g packet (MIRALAX, GLYCOLAX) 17 g ORAL DAILY docusate sodium 100 mg cap(s) (COLACE) 100 mg ORAL BID sodium citrate 4% 3-6 mL catheter lock 3-6 mL INTRALUMINAL PRN tamsulosin ER 0.4 mg cap(s) (FLOMAX) 0.4 mg ORAL DAILY pantoprazole DR 40 mg tab(s) (PROTONIX) 40 mg ORAL BID levothyroxine 200 mcg tab(s) (SYNTHROID) 200 mcg ORAL BEFORE BREAKFAST DAILY atorvastatin 80 mg tab(s) (LIPITOR) 80 mg ORAL AT BEDTIME PHYSICAL EXAMINATION: BP 109/61 Pulse 89 Temp 37.1 ?C (98.8 ?F) (Oral) Resp 18 Ht 193 cm (6' 4) Wt 114.5 kg (252 lb 6.4 oz) SpO2 96% BMI 30.72 kg/m? Intake/Output Summary (Last 24 hours) at 01/01/18 1102 Last data filed at 01/01/18 1000 Gross per 24 hour Intake 702 ml Output 4300 ml Net -3598 ml General: Elderly man, sitting in chair. In NAD HEENT: PERRLA, EOMI, anicteric sclera, MMM Neck: Supple Resp: No use of accessory muscles, non labored breathing Abd: Soft, LLQ with purple marking (by primary team) but no obvious bruising. Large hematoma is palpated. MSK: +edema, slightly improved from yesterday. Neuro: AAOx3, no acute focal deficits. Skin: Warm, dry, intact. No rashes. Lines without oozing. LABORATORY DATA Recent Labs 01/01/18 0500 12/31/17 1349 12/31/175 12/30/17 0541 WBC 3.71 3.46* 3.42* 4.87 RBC 2.61* 2.39* 2.23* 2.21* HB 8.2* 7.3* 6.9* 6.8* HCT 24.4* 22.5* 20.9* 20.6* PLT 73* 67* 66* 66* MCV 93.5 94.1 93.7 93.2 MCH 31.4 30.5 30.9 30.8 MCHC 33.6 32.4 33.0 33.0 RDWCV 17.7* 18.1* 17.8* 17.9* MPV 9.8 9.5 10.7 10.5 NEUTP 62.5 -- 63.4 71.3 ABSNEUT 2.32 -- 2.16 3.47 LYMPHP 27.5 -- 27.2 22.6 MONOP 8.9 -- 8.2 5.7 EODINP 0.8 -- 0.9 0.2 BASOP 0.3 -- 0.3 0.2 ABSMONO 0.33 -- 0.28 0.28 ABSEOSIN 0.03 -- 0.03 <0.03 ABSBASO <0.03 -- <0.03 <0.03 Recent Labs 01/01/18 0500 12/31/17 1349 12/31/17 0425 12/30/17 0541 NA -- -- 137 135* K -- -- 3.9 3.9 CHLOR -- -- 101 101 CO2 -- -- 29 23 CREAT -- -- 3.92* 4.63* BUN -- -- 22 34* GLUC -- -- 83 87 P 3.9 -- 3.0 3.8 MG 1.9 -- 1.8 -- CA -- -- 7.2* 7.5* PTSEC -- 14.3* -- -- INR -- 1.4* -- -- APTT -- -- -- 36.5* ASSESSMENT AND PLAN: Mr. Rivera is a 62 year old man with history of afib s/p PPM and DCCV, on apixaban, HTN, hypothyroid, aortic stenosis s/p bioprosthetic ACR and RUDY ligation, sick sinus syndrome, h/o CVA, retinal embolism, h/o Min-en-Y bypass, chronic iron deficiency anemia, UGIB (1997, 2014, 2015) who presented to OSH with several weeks of worsening fatigue and shortness of breath. Found to have acute kidney injury and throbocytopenia and anemia refractory to blood transfusions. Hematology consulted for autoimmune hemolytic anemia. - Smear reviewed. Notable for few schistocytes, yojana cells, rare spherocytes. Decreased platelets without clumping. Normal leukocytes. - CT a/p with rectus sheath hematoma. Pt denies any procedures or injections into abd. Unclear why he would develop a spontaneous hematoma without overt evidence of coagulopathy. - CT a/p and LE dopplers also showed LAD as noted above. Will need to r/o lymphoproliferative disorder. Overall picture seems mores consitent with an autoimmune process. Note, weakly positive FELICIA however eluate was negative. Given this, patient does not have autoimmune hemolytic anemia but rather likely has elevated immunoglobulins (? Due to autoimmune process). Flow cytometry negative. LDH stable. Epo level inappropriately normal at 16.9. IgG elevated but IgA and IgM normal. Recommendations: - Daily CBC+diff - Awaiting BMBx final review, CHANDRAKANT, bartonella Ab - Agree with holding steroids for now, could consider repeat LN BX (core needle vs excisional pending above studies if non revealing). - Discussed with pathology - they reviewed BM slides from OSH, but have requested block to be sent for further assessment. Patient will be discussed with staff, Dr. Greer. Russ Guevara MD Hematology and Oncology Fellow Pager: [phone] January 01, 2018 CONSULT PROG Observed: 01/01/2018 Status: COMPLETED Source: [place] 10:48 AM [facility] REPOSITORY HNO ID: [id number] Author: Sixto Quick Service: Nephrology Author Type: Physician Type: Consult Progress Note Filed: 01/01/2018 1:25 PM Note Text: CONSULT PROGRESS NOTE NEPHROLOGY SERVICE SERVICE DATE: 01/01/2018 SERVICE TIME: 10:48 AM Subjective INTERVAL HISTORY: No acute events overnight Had 1.8L yesterday removed with IHD States LE swelling improving Denies active bleeding, dyspnea, pain MEDICATIONS: Current Medications Reviewed Objective PHYSICAL EXAM: BP 109/61 Pulse 89 Temp 37.1 ?C (98.8 ?F) (Oral) Resp 18 Ht 193 cm (6' 4) Wt 114.5 kg (252 lb 6.4 oz) SpO2 96% BMI 30.72 kg/m? Intake/Output Summary (Last 24 hours) at 01/01/18 1048 Last data filed at 01/01/18 1000 Gross per 24 hour Intake 702 ml Output 4300 ml Net -3598 ml GEN: Obese adult male.?No acute distress. Cooperative. Alert and oriented x3. Seen on hemodialysis, lying comfortably in bed. HEENT: NC/AT. Moist mucous membranes. RIJ c/d/i, nontender. RESP: CTAB, no rales/wheezes/rhonchi. Normal respiratory effort CV: RRR, ?S1, S2 normal, no murmurs/rubs/gallops. ABD: Soft. Nondistended, Nontender. Bowel sounds present. EXTR: Warm and perfused. Bilateral peripheral edema improved, pitting at ankles NEURO: CN II-XII grossly intact. No focal deficit. SKIN: Skin color, texture, turgor normal. No rashes or lesions on exposed skin. ACCESS: RIJ temporary dialysis catheter DATA: Diagnostic tests reviewed for today's visit: Most recent labs and imaging results. Recent Labs 01/01/18 0500 12/31/17 0425 12/30/17 0541 12/29/17 1408 12/29/17 0416 12/27/17 2318 12/27/17 2007 12/26/17 2156 NA -- 137 135* -- 134* 137 -- -- 140 K -- 3.9 3.9 -- 3.9 4.3 -- -- 4.4 CHLOR -- 101 101 -- 103 110* -- -- 116* CO2 -- 29 23 -- 22 20* -- -- 15* BUN -- 22 34* -- 44* 52* -- -- 60* CREAT -- 3.92* 4.63* -- 4.74* 4.50* -- -- 5.01* GLUC -- 83 87 -- 99 81 -- -- 96 ANION -- 7* 11 -- 9 7* -- -- 9 CA -- 7.2* 7.5* -- 7.5* 7.6* -- -- 7.1* P 3.9 3.0 3.8 4.4 4.1 4.4 4.5 < > 5.8* MG 1.9 1.8 -- -- 1.7 -- 1.8 -- 1.8 < > = values in this interval not displayed. Recent Labs 01/01/18 0500 12/31/17 1349 12/31/17 0425 WBC 3.71 3.46* 3.42* HB 8.2* 7.3* 6.9* HCT 24.4* 22.5* 20.9* PLT 73* 67* 66* Assessment/Plan 62 yo M w PMH of Afib on Eliquis s/p PPM/DCCV, s/p AVR, h/o CVA, iron def anemia, h/o gastric bypass, h/o GI bleed, hypothyroidism transferred for further evaluation of IRINA and hemolytic anemia. OSH?GI eval without source, + hemolysis, multiple pRBC transfusions locally, IRINA with cr 4.1 on admission Renal Bx /, without definitive diagnosis, by report. Also with Bone marrow bx. ? 1. 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 C3 low, ANCA +, mild increase in MPO, FATOU-, DULCE-, Petar+, anti-ds DNA+, cryoglobulin 216. Blood cultures -ve, HIV/HepB/HepC -ve. Trans-thoracic echo without vegetation. CT abd with hematoma L rectus. On CRRT 12/27-12/28 due to worsening hypervolemia. Received IHD 12/29, 12/30, 12/31, 01/01. Awaiting Bartonella PCR, CHANDRAKANT. 2. Hyperkalemia-resolved 3. NAGMA-on sodium bicarb 4. Normocytic anemia-likely 2/2 acute blood loss and chronic disease. S/p several PRBCs. Awaiting OSH BM bx review by octaviano ackerman following. 5. Thrombocytopenia 6. Access: [facility] placed 12/27 ? -Hyponatremia. -. S/P AVR. -Recurrent GIB. -Acute blood loss anemia. -Thrombocytopenia. -Iron deficiency anemia. -Heyde's syndrome. -Rectus sheath hematoma. -Acquired hypothyroidism. -Atrial fibrillation. S/P DCCV and LAAL. -SSS. S/P PPM. -Essential HTN. -Vitamin B 12 deficiency. -Hypoalbuminemia. -S/P CVA with residual dysphagia and silent aspiration. -Obesity class I. S/P Min-en-Y bypass. -Lymphadenopathy. ? PLAN -Dialysis today. Currently on IHD MWF alternated with IUF. Anticipate another session Thursday. -Strict I/Os. Consider removing herring if remains anuric due to hypercoagulability. -Could consider furosemide stress test of metolazone 5 mg and lasix 120 mg IV -Daily renal function panel -Renally dose medications ? Will follow SIGNATURE: Dilcia Horner MD PATIENT NAME: Frank Rivera DATE: January 01, 2018 TIME: 10:48 AM PAGER: [phone] [facility] [place] [facility] STAFF PHYSICIAN NOTE OF PERSONAL INVOLVEMENT IN CARE I have reviewed the progress note obtained and documented by Dr. Horner and I personally participated in the hernandez components. I have discussed the case and management of the patient's care. I have revised and amended the note to reflect my examination, assessment and plan. I saw the patient on hemodialysis (orders entered in [facility]). Patient still with volume overload. Will do IUF on 01/02/18 and then continue IHD MWF as needed. Sixto Quick MD Staff Nephrology and Hypertension [facility] Beeper Number: [id number] Date of Service: 01/01/2018 Time of Service: 9:56 AM CASE MANAGEM Observed: 01/01/2018 Status: COMPLETED Source: [place] 10:35 AM [facility] REPOSITORY O ID: [id number] Author: Nguyen Valentin (Sw) Service: Case Management Author Type: Director Of Safety And Security Type: Care Mgt Progress Note Filed: 01/01/2018 10:40 AM Note Text: CARE MANAGEMENT PROGRESS NOTE SERVICE DATE: 01/01/2018 SERVICE TIME: 10:35 AM LOS: 8 days FREEDOM OF CHOICE GIVEN: Yes with pt at bedside 01/01/2018 Financial Disclosure Provided The patient and/or family has been given the Provider List: Yes Provider List: Home Care Needs Prior to Discharge: Facility or Agency Choices;Home Care Order;Accepting Facility Per Medical Team, pt to have CHANDRAKANT today. Nephrology, hemotology, and ID following. No discharge planned for this weekend. 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 Agency list left for pt to review at bedside. Will need F2F. For care management issues which may arise regarding this pt this weekend, please page [phone]. Thank you! SIGNATURE: BARBARA Lorenzo PATIENT NAME: Frank Rivera DATE: January 01, 2018 TIME: 10:35 AM PAGER/CONTACT #: [phone] CONSULT PROG Observed: 01/01/2018 Status: COMPLETED Source: [place]AN[place] 8:04 AM [facility] REPOSITORY O ID: [id number] Author: Gee Ruiz Service: Infectious Disease Author Type: Physician Type: Consult Progress Note Filed: 01/01/2018 5:02 PM Note Text: INFECTIOUS DISEASE CONSULT PROGRESS NOTE SERVICE DATE: 01/01/2018 SERVICE TIME: 8:04 AM Subjective INTERVAL HISTORY: Overnight, patient afebrile without leukocytosis, no acute events CHANDRAKANT planned for today Plan for possible lymph node excisional biopsy unclear at this time PERTINENT ROS: Positive for fatigue, normal dyspnea and cough, edema, abdominal pain - otherwise 14 system ROS negative Current Facility-Administered Medications: oxymetazoline 0.05 % 2 [place] (GENASAL) 2 [place] EACH NOSTRIL BID sodium chloride 0.65 % 2 [place] (AYR, OCEAN) 2 [place] EACH NOSTRIL TID aspirin, enteric coated 81 mg tab(s) 81 mg ORAL DAILY metoprolol tartrate (short acting) 12.5 mg tab(s) (LOPRESSOR) 12.5 mg ORAL BID senna-docusate 8.6-50 mg 1 tablet (SENNA-S) 1 tablet ORAL/FEEDING TUBE BID polyethylene glycol 3350 17 g packet (MIRALAX, GLYCOLAX) 17 g ORAL DAILY sodium bicarbonate 650 mg tab(s) 650 mg ORAL TID docusate sodium 100 mg cap(s) (COLACE) 100 mg ORAL BID sodium citrate 4% 3-6 mL catheter lock 3-6 mL INTRALUMINAL PRN tamsulosin ER 0.4 mg cap(s) (FLOMAX) 0.4 mg ORAL DAILY pantoprazole DR 40 mg tab(s) (PROTONIX) 40 mg ORAL BID levothyroxine 200 mcg tab(s) (SYNTHROID) 200 mcg ORAL BEFORE BREAKFAST DAILY atorvastatin 80 mg tab(s) (LIPITOR) 80 mg ORAL AT BEDTIME Objective PHYSICAL EXAM: Vital Signs: BP 109/61 Pulse 89 Temp 37.1 ?C (98.8 ?F) (Oral) Resp 18 Ht 193 cm (6' 4) Wt 114.5 kg (252 lb 6.4 oz) SpO2 96% BMI 30.72 kg/m? GENERAL APPEARANCE: Patient in no acute distress, appears ill - seen in dialysis SKIN: Skin pale, warm to touch. Boils on buttocks noted. No peripheral signs of infectious endocarditis HEAD/SINUSES: No significant findings. EYES: PERRLA, conjunctivae clear. EARS: External ears normal. NOSE: Nares normal. Septum midline. OROPHARYNX: Lips, mucosa, and tongue normal. Teeth and gums normal. Oropharynx normal. NECK: Supple, full range of motion, no lymphadenopathy BACK: no CVA tenderness, no spinal point tenderness, no paraspinal tenderness LUNGS: Normal breath sounds, clear to auscultation HEART: Regular rate/rhythm, heart sounds consistent with AV replacement ABDOMEN: Soft, mildly tender, no palpable masses, normal bowel sounds, outline from mapping out of hematoma present EXTREMITIES: 3+ pitting edema noted in BLE NEURO: Awake, alert and oriented x3, no involuntary motions. DATA: Diagnostic Tests Reviewed for Today's Visit: Most recent labs and imaging results. CBC, Coags, BMP, Mg, Phos Recent Labs 01/01/18 0500 12/31/17 1349 12/31/17 0425 12/30/17 0541 WBC 3.71 3.46* 3.42* 4.87 HB 8.2* 7.3* 6.9* 6.8* HCT 24.4* 22.5* 20.9* 20.6* PLT 73* 67* 66* 66* INR -- 1.4* -- -- APTT -- -- -- 36.5* NA -- -- 137 135* K -- -- 3.9 3.9 CHLOR -- -- 101 101 CO2 -- -- 29 23 BUN -- -- 22 34* CREAT -- -- 3.92* 4.63* GLUC -- -- 83 87 CA -- -- 7.2* 7.5* MG 1.9 -- 1.8 -- P 3.9 -- 3.0 3.8 MICROBIOLOGY: 12/30 Bartonella PCR - in process 12/25 Blood culture x2 - negative Urine culture - negative Staph aureus nasal - negative HIV - negative Hepatitis panel - negative Bone marrow biopsy (from OSH, full results in patient record on nursing floor): Normocellular marrow with mild plasmacytosis. Iron-absent Peripheral blood-macrocytic anemia and thrombocytopenia. Flow cytometry study from [facility] shows no evidence for abnormal myeloid maturation or an increased blast population. There is no evidence for a lymphoproliferative disorder or plasma cell neoplasm. Cytogenetic studies are pending at this time. ? 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 See comment. - Tubular atrophy and interstitial fibrosis, mild. LH/ka 12/30/2017 COMMENT Light microscopy unequivocally shows a focal proliferative glomerulonephritis with up to 4 glomeruli out of 29 sampled showing cellular or fibrocellular crescents and one additional glomerulus showing a more chronic lesion with a segmental scar and fibrous crescent. Focally prominent neutrophil accumulation is noted within areas of proliferation. Immunofluorescence reveals strong staining for IgM and C3 with lesser staining for multiple other reactants. The strong staining for IgM (which does not appear to be artifactual) would preclude the diagnosis of C3 nephropathy. Instead, IgM staining of this type, in combination with crescentic glomerulonephritis has been described in infection-related glomerulonephritis (see Estefanía et al AJKD 63:1060-65, 2014). Given the finding of low C3, the finding of focal lymphadenopathy and the multiple borderline positive serologic findings such as mild MPO and dsDNA would all suggest a potential underlying infectious etiology. Specifically, correlation to exclude Bartonella infection, which can involve cardiac prosthesis and produce lymphadenopathy and be essentially undetectable on routine blood cultures should be performed. Also potentially in the differential diagnosis, given the positive dsDNA serology would be lupus nephritis, though it would be highly unusual for IgM to predominate over IgG in this setting. Impression/Recommendations Mr. 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 ID has been consulted to help rule out occult infection. Recs: Await Bartonella PCR Please ensure Bartonella serology is drawn and sent Please obtain CHANDRAKANT to rule out infective endocarditis If CHANDRAKANT concerning for IE - will treat with ceftriaxone, gentamicin, and doxycycline SIGNATURE: Todd Montana MD PATIENT NAME: Frank Rivera DATE: January 01, 2018 TIME: 8:04 AM PAGER/CONTACT #: [phone] Chart reviewed, patient examined, and hernandez elements of history and physical examination of the patient confirmed. I reviewed the resident/fellow's note, examined the patient, and agree with the documented findings and plan of care. CHANDRAKANT reviewed. 62 yo gentleman with a h/o AVR (pericardial valve at [facility]) for on 05/07/2017, A-fib and SSS s/p PPM, and gastric bypass 1996. 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 RECOMMENDATIONS: Vancomycin 1500 mg IV now followed by 1000 mg IV after dialysis on MWF. Ceftriaxone 2000 mg IV Q24h. Doxycycline 100 mg PO Q12h. Gentamicin 300 mg IV now (3 mg/kg adjusted body weight) followed by 100 mg IV after dialysis on MWF. Will need Cardiothoracic Surgery evaluation of the valve. Electrophysiology evaluation of the PPM. Gee Ruiz MD Pager [phone] January 01, 2018 5:02 PM PROGRESS Observed: 01/01/2018 Status: COMPLETED Source: [place] 6:45 AM [facility] REPOSITORY [facility] ID: [id number] Author: Riley Bamuann Service: General Internal Medicine Author Type: Physician Type: Progress Notes Filed: 01/01/2018 1:36 PM Note Text: INPATIENT PROGRESS NOTE ATTENDING: Riley Baumann SERVICE DATE: 01/01/2018 SERVICE TIME: 6:45 AM For questions regarding this patient, please page [phone] during 7 a.m. - 5 p.m. After 5 p.m., please page on-call Adrien pager [phone] for concerns. Brief Plan - Continue hemodialysis as per nephrology recommendations - Monitor H/H and transfuse Hg < 7 mg/dL or platelets < 50 - Appreciate ID recommendations. Follow up on bartonella testing. No need for antibiotics now - Plan for CHANDRAKANT today to evaluate for any evidence of IE - Appreciate hematology recommendations, follow up on pathology review of BM slides. - PNH panel test with negative results Interval History No acute events overnight. Doing well this morning in the dialysis unit. No current complaints or symptoms. Denies any fever, chills, night sweats, no chest pain or shortness of breath. Denies any further episodes of epistaxis and hasn't noticed any bleeding under the skin or anywhere else. Physical Exam BP 109/61 Pulse 89 Temp 37.1 ?C (98.8 ?F) (Oral) Resp 18 Ht 193 cm (6' 4) Wt 114.5 kg (252 lb 6.4 oz) SpO2 96% BMI 30.72 kg/m? -I/O: Intake/Output Summary (Last 24 hours) at 01/01/18 0645 Last data filed at 12/31/17 1800 Gross per 24 hour Intake 942 ml Output 1800 ml Net -858 ml GENERAL: Alert, no distress, cooperative, on 2L NC. SKIN: Skin color, texture, turgor normal. No rashes or lesions. LUNGS: Bibasilar crackles CARDIAC: Murmur 2/6, systolic, right upper sternal border ABDOMEN: Soft, non-distended, LLQ tenderness, +BS EXTREMETIES: No ulcers, 2+ pitting edema to knees NEURO: Alert, oriented X 3. motor exam grossly normal. Sensation grossly intact., Cranial nerves II-XII intact PULSES: 2+ radial Medications Current hospital medications: oxymetazoline 0.05 % 2 [place] (GENASAL) 2 [place] EACH NOSTRIL BID sodium chloride 0.65 % 2 [place] (AYR, OCEAN) 2 [place] EACH NOSTRIL TID aspirin, enteric coated 81 mg tab(s) 81 mg ORAL DAILY metoprolol tartrate (short acting) 12.5 mg tab(s) (LOPRESSOR) 12.5 mg ORAL BID senna-docusate 8.6-50 mg 1 tablet (SENNA-S) 1 tablet ORAL/FEEDING TUBE BID polyethylene glycol 3350 17 g packet (MIRALAX, GLYCOLAX) 17 g ORAL DAILY sodium bicarbonate 650 mg tab(s) 650 mg ORAL TID docusate sodium 100 mg cap(s) (COLACE) 100 mg ORAL BID sodium citrate 4% 3-6 mL catheter lock 3-6 mL INTRALUMINAL PRN tamsulosin ER 0.4 mg cap(s) (FLOMAX) 0.4 mg ORAL DAILY pantoprazole DR 40 mg tab(s) (PROTONIX) 40 mg ORAL BID levothyroxine 200 mcg tab(s) (SYNTHROID) 200 mcg ORAL BEFORE BREAKFAST DAILY atorvastatin 80 mg tab(s) (LIPITOR) 80 mg ORAL AT BEDTIME Labs CBC: Recent Labs 12/31/17 1349 12/31/17 0425 12/30/17 0541 12/29/17 1408 12/29/17 0228 12/28/17 1845 12/28/17 1355 12/27/17 2318 WBC 3.46* 3.42* 4.87 4.62 4.58 3.83 3.39* 3.03* HB 7.3* 6.9* 6.8* 7.4* 7.1* 7.3* 7.1* 7.1* HCT 22.5* 20.9* 20.6* 22.3* 21.2* 22.2* 21.8* 21.8* PLT 67* 66* 66* 64* 60* 59* 66* 63* MCV 94.1 93.7 93.2 94.1 92.6 91.7 92.4 92.8 RDWCV 18.1* 17.8* 17.9* 17.9* 17.9* 18.0* 18.1* 18.5* NEUTP -- 63.4 71.3 72.3 74.8 70.1 70.8 -- ABSNEUT -- 2.16 3.47 3.32 3.42 2.67 2.39 -- LYMPHP -- 27.2 22.6 22.1 20.7 23.8 22.1 -- MONOP -- 8.2 5.7 5.2 4.1 5.5 6.8 -- EODINP -- 0.9 0.2 0.2 0.2 0.3 0.3 -- BMP: Recent Labs 12/31/17 0425 12/30/17 0541 12/29/17 0416 10/07/231712/26/17215512/26/17174912/26/17 1342 12/26/17 0529 GLUC 83 87 99 81 96 81 73* 108* NA 137 135* 134* 137 140 139 141 138 K 3.9 3.9 3.9 4.3 4.4 5.2* 5.4* 5.7* CHLOR 101 101 103 110* 116* 112* 113* 114* CO2 29 23 22 20* 15* 17* 16* 13* ANION 7* 11 9 7* 9 10 12 11 BUN 22 34* 44* 52* 60* 68* 67* 69* CREAT 3.92* 4.63* 4.74* 4.50* 5.01* 5.43* 5.63* 4.79* CHEM: Recent Labs 01/01/18 0500 12/31/1742412/30/17 0541 12/29/17 0416 12/27/17231712/27/17200612/26/17215512/26/17174912/26/17 1342 12/26/17 0529 12/25/17 0649 ALB -- -- -- -- 1.9* -- -- -- -- -- -- TPROT -- -- -- -- 6.1* -- -- -- -- -- 7.0 CA -- 7.2* 7.5* 7.5* 7.6* -- 7.1* 7.9* 8.4* 8.0* 7.9* MG 1.9 1.8 -- 1.7 -- 1.8 1.8 -- -- -- -- HEPATIC: Recent Labs 12/27/17231712/26/172327 ALKPHOS 141* -- ALT 22 -- AST 32 -- TBILI 0.8 0.7 COAG: Recent Labs 12/31/17 1349 12/30/17 0541 12/29/1722712/27/17231712/27/173 12/26/17232712/26/17215512/25/172153 APTT -- 36.5* 38.6* 36.5* 31.0 Blood/Anticoagulant Ratio in tube unsatisfactory. -- 38.7* INR 1.4* -- -- -- -- -- 1.6* 1.6* URINALYSIS:No results for input(s): PH, SPGR, UGLUC, UBILI, UKET, UHB, UPROT, UROBIL, UWBC, SSA in the last 168 hours. Invalid input(s): NITR CARDIAC: Recent Labs 12/26/17 1754 CKMBP 1.8 Imaging XR CHEST 1V FRONTAL 12/27/2017 Lines, Tubes, and Devices: ?Right IJ line mid SVC. Stable pacemaker. Lungs and Pleura: ?Bilateral effusions and overlying opacity similar to prior. No pneumothorax. Cardiomediastinal silhouette: ?Stable cardiac silhouette. ? CT ABD/PEL WO IVCON 12/27/2017 LARGE LEFT RECTUS SHEATH HEMATOMA, STABLE OR SLIGHTLY INCREASED IN SIZE SINCE 12/25/2017. 3.3 CM ROUND LOW-ATTENUATION LESION ADJACENT TO THE CELIAC AXIS WHICH MAY BE AN ENLARGED LYMPH NODE. CHOLELITHIASIS WITHOUT EVIDENCE CHOLECYSTITIS. HEPATIC STEATOSIS. ? US ABD RT UPPER QUADRANT AND SPLEEN 12/26/2017 CHOLELITHIASIS IN A DISTENDED GALLBLADDER WITHOUT OTHER EVIDENCE OF ACUTE CHOLECYSTITIS. DIFFUSE HEPATIC STEATOSIS. The craniocaudal length of the spleen is 10.1 cm, normal. There are no splenic lesions. ? CT ABD/PEL WO IVCON 12/25/2017 Moderate LEFT rectus sheath hematoma Diffuse hepatic steatosis. 2.6 cm low-attenuation structure abutting the celiac, possibly an enlarged lymph node. ?Further evaluation with contrast-enhanced study should be considered. Cholelithiasis without evidence of acute cholecystitis. ? LEG DVT JORGE LUIS BOBBY 12/25/2017 RIGHT SIDE - DEEP VEINS Negative for acute deep vein thrombosis. Thickened red[place], patent distal external iliac vein and common femoral vein. Only segments visualized of the posterior tibial veins and peroneal veins. Multiple enlarged lymph nodes noted in the right groin with the largest measuring aproximately: 1.4 x 1.5 x 0.9 cm. RIGHT SIDE - SUPERFICIAL VEINS Thickened red[place], patent great saphenous?vein. LEFT SIDE - DEEP VEINS Only segments visualized of the posterior tibial veins and peroneal veins. Multiple enlarged lymph nodes noted in the right groin with the largest measuring aproximately: 2.3 x 1.8 x 0.7 cm. 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 ? XR CHEST 1V FRONTAL Lines, tubes, and devices: ?The patient is status post median sternotomy and left 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 clip placement. ?Left pacemaker device is in place with leads in the right atrium and the right ventricle. ?Surgical clips overlie the upper abdomen. Lungs and pleura: ?Patchy reticular opacities are noted, likely related to pulmonary edema. Hazy opacity overlying the right lung base is likely related to small right pleural effusion and adjacent atelectasis/consolidation. ?Also noted is trace left pleural effusion. ?A vertically oriented lucency overlying the right lower chest is favored to be a skinfold. Cardiomediastinal silhouette: ?Cardiac silhouette is enlarged with pulmonary venous congestion. ? ECHO 12/25/2017 - Technically difficult exam due to suboptimal positioning. - Exam indication: Initial evaluation of Heart Failure - The left ventricle is moderately dilated. There is moderate concentric left ventricular hypertrophy. Left ventricular systolic function is normal. EF = 66 ? 5% (2D biplane) - The right ventricle is normal in size. Right ventricular systolic function is normal. - The left atrial cavity is severely dilated. - The right atrial cavity is dilated. - There is moderate (2+) mitral valve regurgitation. Thickened mitral valve leaflets. - There is moderate (2+ - 3+) tricuspid valve regurgitation. 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 There is moderately severe (3+) aortic valve regurgitation. The peak gradient is 39 mmHg, the mean gradient is 17 mmHg and the dimensionless valve index is 0.53. There is both valvular and paravalvular AI. There is flow reversal in the descending aorta. - Estimated right ventricular systolic pressure is?likely underestimated due to a weak or incomplete tricuspid regurgitation signal and is, at least, 70 mmHg consistent with moderately severe pulmonary hypertension. Estimated right atrial pressure is 15 mmHg. - The patient has not had a prior CC echocardiographic exam for comparison. Assessment and Plan Mr. 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 MICU transfer to initiate dialysis secondary to volume overload. Patient is now non-oliguric IRINA-D. ? #Pancytopenia #Hemolytic anemia Presented with fatigue, shortness of breath History of UGIB secondary to Min-en-Y (most recently 2015), OSH EGD/C-scope/tagged RBC scan showed no evidence of bleed Requiring pRBC transfusion x 3 during this hospitalization Concerns for hemolytic process, not Petar driven--peripheral smear showed evidence of scant schistocytes, yojana cells, rare spherocytes, thrombocytopenia. ?Elevated Igs, will try to continue to workup lymphoproliferative process as potential etiology - Transfuse Hgb < 7, Plts < 50 - F/u Hematology recs -- if no plans for LN excisional biopsy, ?restart prednisone 60mg - PNH panel test with negative results? #Atrial fibrillation S/p PPM for sick sinus syndrome Metoprolol 12.5mg BID home dose held for acute anemia, which has now stabilized HR in 80s-low 100s, HDS -Hold apixaban?for rectus sheath hematoma, will trial with heparin gtt, if tolerates, switch back to apixaban -Continue metoprolol 12.5mg BID -Tele ? #Rectus sheath hematoma Last imaging 12/27/17 showed 20 x 8.7 x 6.7 cm left rectus sheath hematoma, unclear etiology -Daily CBC -Will trial with heparin gtt, if tolerates, switch back to apixaban #Lymphadenopathy 3.3 x 2.9cm ?LN in celiac region, concern by Hematology for possible lymphoproliferative disorder -Hold on LN biopsies at this point -Appreciate ID recs. 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 -Continue IHD -Continue sodium bicarbonate 650mg TID -Daily BMP -f/u Nephrology recs ? #CAD Continue atorvastatin 80mg qHS ? #Mild protein-calorie malnutrition -Nutritional support ? #Hypothyroidism -Continue levothyroxine 200mcg qAM ? 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 Diet: Renal DVT PPx: IPCs GI PPx: Pantoprazole 40mg qDay Jami Proctor MD Internal Medicine, PGY-1 Pager [phone] 01/01/18 6:45 AM Note: These recommendations are not final until staffed by provider For questions regarding this patient, please page [phone] during 7 a.m. - 5 p.m. After 5 p.m., please page on-call Adrien pager [phone] for concerns. [facility] STAFF: TEACHING PHYSICIAN NOTE OF PERSONAL INVOLVEMENT IN CARE I have reviewed the progress note obtained and documented by the resident and I personally participated in the hernandez components. I have discussed the case and management of the patient's care with the resident. The following comments revise or confirm relevant hernandez components of the resident's note. IMPRESSION: This is a 62 year old male admitted with fatigue and shortness of breath and found to have IRINA with a serum creatinine of 4.1 and renal biopsy concerning for crescentic GN. ? hx aortic stenosis requiring aortic valve replacement and left 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 ablation hx atrial fibrillation and sick sinus syndrome and pacemaker placement. ? He had a Min-en-Y bypass complicated by recurrent GI bleeds and iron deficiency anemia. He also had a bone marrow biopsy to evaluate pancytopenia to rule out myeloma process. This is being reviewed by our pathologists now (requested tissue block) Hospital course complicated by need for red cell and platelet transfusion as well as spontaneous rectus sheath hematoma. ?Was on apixaban, but this has been held. Eventually required CVVHD and then hemodialysis for hypoxemic respiratory failure and volume overload requiring MICU stay. ? Seen on dialysis today, more comfortable without complaints; no further epistaxis and counts stable afebrile; ongoing marked edema in his legs. ? PLAN: hemodialysis per nephrology consider IV furosemide challenge CHANDRAKANT to rule endocarditis source today await path review of BMBx Blood cultures bartonella serologies Hold on further lymph node biopsies at this point Appreciate ID, nephrology and hematology inputs. Care Coordination The majority of the visit was spent counseling and/or coordinating care for the patient. Blth-ji-czil time was 20 minutes Riley Baumann MD, [facility] Pager / Date and Time of Service: Date: January 01, 2018 Time: 1:33 PM Authenticated by responsible provider. NURSING PROG Observed: 01/01/2018 Status: COMPLETED Source: [place] 6:33 AM [facility] REPOSITORY [facility] ID: [id number] Author: Breanne (Rn) DIEUDONNE Kelly Service: (none) Author Type: Registered Nurse Type: Nursing Progress Note Filed: 01/01/2018 6:33 AM Note Text: report given to rn progressive care unit 6.33 am FIBRINOGEN Collected: 01/01/2018 Status: F Source: [place] 5:00 AM [facility] REPOSITORY TYPE CODE TESTS RESULT OUT OF REFERENCE UNITS RANGE LAB FIBCT 200-400 mg/dL Fibrinogen 204 Performed By: #### FIBCT, MG1, PHOS, CBCDIF #### [facility] [address] [address] MAGNESIUM Collected: 01/01/2018 Status: F Source: [place]AN[place] 5:00 AM [facility] REPOSITORY TYPE CODE TESTS RESULT OUT OF REFERENCE UNITS RANGE LAB MG 1.7-2.3 mg/dL Magnesium 1.9 Performed By: #### FIBCT, MG1, PHOS, CBCDIF #### [facility] [address] [address] PHOSPHORUS Collected: 01/01/2018 Status: F Source: [place]AN[place] 5:00 AM [facility] REPOSITORY TYPE CODE TESTS RESULT OUT OF REFERENCE UNITS RANGE LAB PHOS 2.7-4.8 mg/dL Phosphorus 3.9 Performed By: #### FIBCT, MG1, PHOS, CBCDIF #### [facility] [address] [id number] CBC AND DIFFERENTIAL Collected: 01/01/2018 Status: F Source: [place]ANO 5:00 AM [facility] REPOSITORY TYPE CODE TESTS RESULT OUT OF REFERENCE UNITS RANGE LAB WBC 3.70-11.00 k/uL WBC 3.71 LAB RBC 4.20-6.00 m/uL Low RBC 2.61 LAB HGB 13.0-17.0 g/dL Low Hemoglobin 8.2 LAB HCT 39.0-51.0 % Low Hematocrit 24.4 LAB MCV 80.0-100.0 fL MCV 93.5 LAB MCH 26.0-34.0 pG MCH 31.4 LAB MCHC 30.5-36.0 g/dL MCHC 33.6 LAB RDWCV 11.5-15.0 % RDW-CV High 17.7 LAB PLTCT 150-400 k/uL Low Platelet Count 73 Result Comment: No clot detected. LAB MPV 9.0-12.7 fL MPV 9.8 LAB ANEUT % Neut% 62.5 LAB AANEUT 1.45-7.50 k/uL Abs Neut 2.32 LAB ALYMP % Lymph% 27.5 LAB AALYMP 1.00-4.00 k/uL Abs Lymph 1.02 LAB AMONO % Pope% 8.9 LAB AAMONO <0.87 k/uL Abs Pope 0.33 LAB AEOS % Eosin% 0.8 LAB AAEOS <0.46 k/uL Abs Eosin 0.03 LAB ABASO % Baso% 0.3 LAB AABASO <0.11 k/uL Abs Baso <0.03 LAB AUNRBC 0 /100 WBC NRBCs 0.0 LAB ABNRBC <0.01 k/uL Absolute nRBC <0.01 LAB DTYP DTYPE Auto Diff Performed By: #### FIBCT, MG1, PHOS, CBCDIF #### [facility] [address] [place], [place] [address] BASIC METABOLIC PANL Collected: 01/01/2018 Status: F Source: PLANO 5:00 AM [facility] REPOSITORY TYPE CODE TESTS RESULT OUT OF REFERENCE UNITS RANGE LAB GLU 74-99 mg/dL Glucose 82 Result Comment: The [place] Diabetes [employer] (ADA) provides guidance for cutoff values for fasting glucose and random glucose. The ADA defines fasting as no caloric intake for at least 8 hours. Fas ting plasma glucose results between 100 to 125 mg/dL indicate increased risk for diabetes (prediabetes). Fasting plasma glucose results greater than or equal to 126 mg/dL meet the criteria for diagnosis of diabetes. In the absence of unequivocal hyperglycemia, results should be confirmed by repeat testing. In a patient with classic symptoms of hyperglycemia or hyperglycemic crisis, random plasma glucose results greater than or equal to 200 mg/dL meet the criteria for diagnosis of diabetes. Reference: Standards of Medical Care in Diabetes 2016, [place] Diabetes Association. Diabetes Care. 2016.39(Suppl 1). LAB BUN 9-24 mg/dL BUN High 31 LAB CRET 0.73-1.22 mg/dL Creatinine High 5.38 LAB NA 136-144 mmol/L Low Sodium 134 LAB K 3.7-5.1 mmol/L Potassium 4.3 LAB CL 97-105 mmol/L Low Chloride 96 LAB CO2 22-30 mmol/L CO2 25 LAB AGAP 9-18 mmol/L Anion Gap 13 LAB CA 8.5-10.2 mg/dL Low Calcium, Total 7.7 LAB GFRAA eGFR- Amer. 13 LAB GFRNAA . eGFR-All Other Races 11 Result Comment: eGFR (Estimated GFR) Units of measure: mL/min/1.73 meters squared eGFR is derived from the reexpressed MDRD Study equation using the following parameters: serum creatinine, age, gender and race. The creatinine assay has been calibrated to be traceable to IDMS. An eGFR <60 mL/min/1.73m2 for >3 months is consistent with chronic kidney disease. Refer to KDOQI guidelines for clinical interpretation. In patients with unstable renal function, e.g. those with acute kidney injury, the eGFR may not accurately reflect actual GFR. Performed By: #### BMP #### [facility] [address], [place] [address] ALLIED HEALTH Observed: 12/31/2017 Status: COMPLETED Source: PLANO 8:46 PM [facility] REPOSITORY HNO ID: [id number] Author: Juan Regan (Chaplain), Student Service: Spiritual Care Author Type: [employer] Crew Chief Type: Allied Health Filed: 12/31/2017 8:50 PM Note Text: SPIRITUALCARE Spiritual Care Visit- Brief Note Name: Frank Rivera Date: December 31, 2017 Notes: Visited room upon family's request. When I arrived I found Mr. Rivera's sister and daughter alone in the room. They told me of their concern for Mr. Lal and his emotional well being. They thought it was important that he talk to others beyond his family. I told them that I would pass on his name to the next chaplains on duty so that he would be visited. Fixed Wing [employer] Crew Chief Signature: Chaplain Jessica To contact the Spiritual Care Department: Please call [phone] or Page the On-Call Fixed Wing Aircraft Crew Chief at pager [phone] Thank you for the opportunity to be of service. This is an electronically created document. IF PRINTED, PLEASE DO NOT REMOVE FROM THE CHART OR MODIFY PRINTED COPY. CASE MANAGEM Observed: 12/31/2017 Status: COMPLETED Source: PLANO 3:00 PM [facility] REPOSITORY HNO ID: [id number] Author: Terrie Garcia (Sw) Service: Care Management Author Type: Director Of Safety And Security Type: Care Mgt Progress Note Filed: 12/31/2017 3:02 PM Note Text: CARE MANAGEMENT PROGRESS NOTE SERVICE DATE: 12/31/2017 SERVICE TIME: 3:00 PM LOS: 7 days Needs Prior to Discharge: To Be Determined Per medical team, no plan for weekend discharge. Nephrology, hematology, and ID following. Pt has been skilled for home PT/OT, not yet discussed with pt. ISREAL will follow. Please call or page SW if any questions or concerns arise. SIGNATURE: BARBARA Wade PATIENT NAME: Frank Rivera DATE: December 31, 2017 TIME: 3:00 PM PAGER/CONTACT #: [phone] PROGRESS Observed: 12/31/2017 Status: COMPLETED Source: PLANO 2:49 PM [facility] REPOSITORY HNO ID: [id number] Author: Riley Baumann Service: General Internal Medicine Author Type: Physician Type: Progress Notes Filed: 01/01/2018 12:03 AM Note Text: INPATIENT PROGRESS NOTE ATTENDING: Riley Baumann SERVICE DATE: 12/31/2017 SERVICE TIME: 2:49 PM For questions regarding this patient, please page [phone] during 7 a.m. - 5 p.m. After 5 p.m., please page on-call Adrien pager [phone] for concerns. Brief Plan - Continue hemodialysis as per nephrology recommendations - Monitor H/H and transfuse Hg < 7 mg/dL or platelets < 50 - Appreciate ID recommendations. Follow up on bartonella testing. No need for antibiotics now - Plan for CHANDRAKANT tomorrow to evaluate for any evidence of IE - Appreciate hematology recommendations, follow up on pathology review of BM slides. Follow up on P[facility] panel tests Interval History No acute events overnight. Had nosebleed this afternoon that self-resolved. Otherwise, patient was doing well and denies any pain. No fever, chills, chest pain, shortness of breath. Anuric since yesterday (U/O yesterday was 50 mL) Physical Exam BP 107/51 Pulse 66 Temp 36.8 ?C (98.3 ?F) (Oral) Resp 16 Ht 193 cm (6' 4) Wt 114.5 kg (252 lb 6.4 oz) SpO2 95% BMI 30.72 kg/m? -I/O: Intake/Output Summary (Last 24 hours) at 12/31/17 1449 Last data filed at 12/31/17 0900 Gross per 24 hour Intake 240 ml Output 3250 ml Net -3010 ml GENERAL: Alert, no distress, cooperative, on 2L NC. SKIN: Skin color, texture, turgor normal. No rashes or lesions. LUNGS: Bibasilar crackles CARDIAC: Murmur 2/6, systolic, right upper sternal border ABDOMEN: Soft, non-distended, LLQ tenderness, +BS EXTREMETIES: No ulcers, 3+ pitting edema to knees NEURO: Alert, oriented X 3. Non-focal. Sensation grossly intact., Cranial nerves II-XII intact PULSES: 2+ radial Medications Current hospital medications: oxymetazoline 0.05 % 2 [place] (GENASAL) 2 [place] EACH NOSTRIL BID sodium chloride 0.65 % 2 [place] (AYR, OCEAN) 2 [place] EACH NOSTRIL TID aspirin, enteric coated 81 mg tab(s) 81 mg ORAL DAILY metoprolol tartrate (short acting) 12.5 mg tab(s) (LOPRESSOR) 12.5 mg ORAL BID senna-docusate 8.6-50 mg 1 tablet (SENNA-S) 1 tablet ORAL/FEEDING TUBE BID polyethylene glycol 3350 17 g packet (MIRALAX, GLYCOLAX) 17 g ORAL DAILY sodium bicarbonate 650 mg tab(s) 650 mg ORAL TID docusate sodium 100 mg cap(s) (COLACE) 100 mg ORAL BID sodium citrate 4% 3-6 mL catheter lock 3-6 mL INTRALUMINAL PRN tamsulosin ER 0.4 mg cap(s) (FLOMAX) 0.4 mg ORAL DAILY pantoprazole DR 40 mg tab(s) (PROTONIX) 40 mg ORAL BID levothyroxine 200 mcg tab(s) (SYNTHROID) 200 mcg ORAL BEFORE BREAKFAST DAILY atorvastatin 80 mg tab(s) (LIPITOR) 80 mg ORAL AT BEDTIME Labs CBC: Recent Labs 12/31/17 1349 12/31/17 0425 12/30/17 0541 12/29/17 1408 12/29/17 0228 12/28/17 1845 12/28/17 1355 12/27/17 2318 WBC 3.46* 3.42* 4.87 4.62 4.58 3.83 3.39* 3.03* HB 7.3* 6.9* 6.8* 7.4* 7.1* 7.3* 7.1* 7.1* HCT 22.5* 20.9* 20.6* 22.3* 21.2* 22.2* 21.8* 21.8* PLT 67* 66* 66* 64* 60* 59* 66* 63* MCV 94.1 93.7 93.2 94.1 92.6 91.7 92.4 92.8 RDWCV 18.1* 17.8* 17.9* 17.9* 17.9* 18.0* 18.1* 18.5* NEUTP -- 63.4 71.3 72.3 74.8 70.1 70.8 -- ABSNEUT -- 2.16 3.47 3.32 3.42 2.67 2.39 -- LYMPHP -- 27.2 22.6 22.1 20.7 23.8 22.1 -- MONOP -- 8.2 5.7 5.2 4.1 5.5 6.8 -- EODINP -- 0.9 0.2 0.2 0.2 0.3 0.3 -- BMP: Recent Labs 12/31/1742412/30/17 0541 12/29/17 0416 12/27/17231712/26/17215512/26/17 17512/26/17 1342 12/26/17 0529 GLUC 83 87 99 81 96 81 73* 108* NA 137 135* 134* 137 140 139 141 138 K 3.9 3.9 3.9 4.3 4.4 5.2* 5.4* 5.7* CHLOR 101 101 103 110* 116* 112* 113* 114* CO2 29 23 22 20* 15* 17* 16* 13* ANION 7* 11 9 7* 9 10 12 11 BUN 22 34* 44* 52* 60* 68* 67* 69* CREAT 3.92* 4.63* 4.74* 4.50* 5.01* 5.43* 5.63* 4.79* CHEM: Recent Labs 12/31/1742412/30/17 0541 12/29/1741512/27/17231712/27/17200612/26/17215512/26/17174912/26/17 1342 12/26/17 0529 12/25/17 0649 12/24/171617 ALB -- -- -- 1.9* -- -- -- -- -- -- 2.5* TPROT -- -- -- 6.1* -- -- -- -- -- 7.0 7.6 CA 7.2* 7.5* 7.5* 7.6* -- 7.1* 7.9* 8.4* 8.0* 7.9* 8.2* MG 1.8 -- 1.7 -- 1.8 1.8 -- -- -- -- -- HEPATIC: Recent Labs 12/27/17231712/26/17232712/24/171617 ALKPHOS 141* -- 205* ALT 22 -- 30 AST 32 -- 42* TBILI 0.8 0.7 0.8 COAG: Recent Labs 12/31/17 1349 12/30/17 0541 12/29/178 12/27/17231712/27/1735212/26/17232712/26/172155 12/25/17 2154 APTT -- 36.5* 38.6* 36.5* 31.0 Blood/Anticoagulant Ratio in tube unsatisfactory. -- 38.7* INR 1.4* -- -- -- -- -- 1.6* 1.6* URINALYSIS: Recent Labs 12/24/17 1720 SPGR 1.013 UGLUC Negative UBILI Negative UKET Negative UHB 3+* UPROT 100* UWBC >25* CARDIAC: Recent Labs 12/26/17 1754 12/24/17 1907 CKMBP 1.8 -- PBNP -- 31,933* Imaging XR CHEST 1V FRONTAL 12/27/2017 Lines, Tubes, and Devices: ?Right IJ line mid SVC. Stable pacemaker. Lungs and Pleura: ?Bilateral effusions and overlying opacity similar to prior. No pneumothorax. Cardiomediastinal silhouette: ?Stable cardiac silhouette. CT ABD/PEL WO IVCON 12/27/2017 LARGE LEFT RECTUS SHEATH HEMATOMA, STABLE OR SLIGHTLY INCREASED IN SIZE SINCE 12/25/2017. 3.3 CM ROUND LOW-ATTENUATION LESION ADJACENT TO THE CELIAC AXIS WHICH MAY BE AN ENLARGED LYMPH NODE. CHOLELITHIASIS WITHOUT EVIDENCE CHOLECYSTITIS. HEPATIC STEATOSIS. US ABD RT UPPER QUADRANT AND SPLEEN 12/26/2017 CHOLELITHIASIS IN A DISTENDED GALLBLADDER WITHOUT OTHER EVIDENCE OF ACUTE CHOLECYSTITIS. DIFFUSE HEPATIC STEATOSIS. The craniocaudal length of the spleen is 10.1 cm, normal. There are no splenic lesions. CT ABD/PEL WO IVCON 12/25/2017 Moderate LEFT rectus sheath hematoma Diffuse hepatic steatosis. 2.6 cm low-attenuation structure abutting the celiac, possibly an enlarged lymph node. ?Further evaluation with contrast-enhanced study should be considered. Cholelithiasis without evidence of acute cholecystitis. LEG DVT JORGE LUIS BOBBY 12/25/2017 RIGHT SIDE - DEEP VEINS Negative for acute deep vein thrombosis. Thickened redmond, patent distal external iliac vein and common femoral vein. Only segments visualized of the posterior tibial veins and peroneal veins. Multiple enlarged lymph nodes noted in the right groin with the largest measuring aproximately: 1.4 x 1.5 x 0.9 cm. RIGHT SIDE - SUPERFICIAL VEINS Thickened redmond, patent great saphenous?vein. LEFT SIDE - DEEP VEINS Only segments visualized of the posterior tibial veins and peroneal veins. Multiple enlarged lymph nodes noted in the right groin with the largest measuring aproximately: 2.3 x 1.8 x 0.7 cm. 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 XR CHEST 1V FRONTAL Lines, tubes, and devices: ?The patient is status post median sternotomy and left 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 clip placement. ?Left pacemaker device is in place with leads in the right atrium and the right ventricle. ?Surgical clips overlie the upper abdomen. Lungs and pleura: ?Patchy reticular opacities are noted, likely related to pulmonary edema. Hazy opacity overlying the right lung base is likely related to small right pleural effusion and adjacent atelectasis/consolidation. ?Also noted is trace left pleural effusion. ?A vertically oriented lucency overlying the right lower chest is favored to be a skinfold. Cardiomediastinal silhouette: ?Cardiac silhouette is enlarged with pulmonary venous congestion. ECHO 12/25/2017 - Technically difficult exam due to suboptimal positioning. - Exam indication: Initial evaluation of Heart Failure - The left ventricle is moderately dilated. There is moderate concentric left ventricular hypertrophy. Left ventricular systolic function is normal. EF = 66 ? 5% (2D biplane) - The right ventricle is normal in size. Right ventricular systolic function is normal. - The left atrial cavity is severely dilated. - The right atrial cavity is dilated. - There is moderate (2+) mitral valve regurgitation. Thickened mitral valve leaflets. - There is moderate (2+ - 3+) tricuspid valve regurgitation. 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 There is moderately severe (3+) aortic valve regurgitation. The peak gradient is 39 mmHg, the mean gradient is 17 mmHg and the dimensionless valve index is 0.53. There is both valvular and paravalvular AI. There is flow reversal in the descending aorta. - Estimated right ventricular systolic pressure is?likely underestimated due to a weak or incomplete tricuspid regurgitation signal and is, at least, 70 mmHg consistent with moderately severe pulmonary hypertension. Estimated right atrial pressure is 15 mmHg. - The patient has not had a prior CC echocardiographic exam for comparison. Assessment and Plan Mr. 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 MICU transfer to initiate dialysis secondary to volume overload. Patient is now non-oliguric IRINA-D. #Pancytopenia #Hemolytic anemia Presented with fatigue, shortness of breath History of UGIB secondary to Min-en-Y (most recently 2015), OSH EGD/C-scope/tagged RBC scan showed no evidence of bleed Requiring pRBC transfusion x 3 during this hospitalization Concerns for hemolytic process, not Petar driven--peripheral smear showed evidence of scant schistocytes, yojana cells, rare spherocytes, thrombocytopenia. ?Elevated Igs, will try to continue to workup lymphoproliferative process as potential etiology - Transfuse Hgb < 7, Plts < 50 - F/u Hematology recs -- if no plans for LN excisional biopsy, ?restart prednisone 60mg ? #Atrial fibrillation S/p PPM for sick sinus syndrome Metoprolol 12.5mg BID home dose held for acute anemia, which has now stabilized HR in 80s-low 100s, HDS -Hold apixaban for rectus sheath hematoma, will trial with heparin gtt, if tolerates, switch back to apixaban -Restart metoprolol 12.5mg BID -Tele ? #Rectus sheath hematoma Last imaging 12/27/17 showed 20 x 8.7 x 6.7 cm left rectus sheath hematoma, unclear etiology -Daily CBC -Will trial with heparin gtt, if tolerates, switch back to apixaban #Lymphadenopathy 3.3 x 2.9cm ?LN in celiac region, concern by Hematology for possible lymphoproliferative disorder -Discuss with Gen Surg re: excisional lymph node biopsy after reviewing OSH renal biopsy #IRINA-D, non-oliguric P/w fatigue, SOB, SCr 4.1 (b/l 1.0 in 10/2017) C/b volume overload, NAGMA, hyperphosphatemia Unclear etiology, per OSH renal biopsy report, C3 and IgM mesangium deposits, one of 28 glomeruli had crescent (?TMA), low C3, p-ANCA+ but MPO unremarkable NTDC placed 12/27/17 for volume overload, improving ? -Continue IHD -Continue sodium bicarbonate 650mg TID -Daily BMP -f/u Nephrology recs ? #CAD Continue atorvastatin 80mg qHS ? #Mild protein-calorie malnutrition -Nutritional support ? #Hypothyroidism -Continue levothyroxine 200mcg qAM ? 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 Diet: Renal DVT PPx: IPCs GI PPx: Pantoprazole 40mg qDay Jami Proctor MD Internal Medicine, PGY-1 Pager [phone] 12/31/17 2:49 PM Note: These recommendations are not final until staffed by provider For questions regarding this patient, please page [phone] during 7 a.m. - 5 p.m. After 5 p.m., please page on-call Adrien pager [phone] for concerns. [facility] STAFF: TEACHING PHYSICIAN NOTE OF PERSONAL INVOLVEMENT IN CARE I have reviewed the progress note obtained and documented by the resident and I personally participated in the hernandez components. I have discussed the case and management of the patient's care with the resident. The following comments revise or confirm relevant hernandez components of the resident's note. 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 Patient had known history of aortic stenosis requiring aortic valve replacement and left 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 ablation atrial fibrillation and sick sinus syndrome and pacemaker placement. He had a Min-en-Y bypass complicated by recurrent GI bleeds and iron deficiency anemia. He also had a bone marrow biopsy to evaluate pancytopenia to rule out myeloma process. Hospital course complicated by need for red cell and platelet transfusion as well as spontaneous rectus sheath hematoma. Was on apixaban, but this has been held. Eventually required CVVHD and then hemodialysis for hypoxemic respiratory failure and volume overload requiring MICU stay. ? 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 Adenopathy noted on CAT scans and ultrasounds. Transthoracic echo does show worsening aortic insufficiency. PLAN: hemodialysis per nephrology IV furosemide challenge CHANDRAKANT to rule endocarditis source Blood cultures bartonella serologies Hold on further lymph node biopsies at this point Appreciate ID, nephrology and hematology inputs. Care Coordination The majority of the visit was spent counseling and/or coordinating care for the patient. Bpxg-[id number]-mnap time was 25 minutes Riley Baumann MD, FACP Pager / Date and Time of Service: Date: December 31, 2017 Time: 11:59 PM Authenticated by responsible provider. CBC Collected: 12/31/2017 Status: F Source: PLANO 1:49 PM [facility] REPOSITORY TYPE CODE TESTS RESULT OUT OF REFERENCE UNITS RANGE LAB WBC 3.70-11.00 k/uL Low WBC 3.46 LAB RBC 4.20-6.00 m/uL Low RBC 2.39 LAB HGB 13.0-17.0 g/dL Low Hemoglobin 7.3 LAB HCT 39.0-51.0 % Low Hematocrit 22.5 LAB MCV 80.0-100.0 fL MCV 94.1 LAB MCH 26.0-34.0 pG MCH 30.5 LAB MCHC 30.5-36.0 g/dL MCHC 32.4 LAB RDWCV 11.5-15.0 % RDW-CV High 18.1 LAB PLTCT 150-400 k/uL Low Platelet Count 67 Result Comment: No clot detected. LAB MPV 9.0-12.7 fL MPV 9.5 LAB ABSNUC <0.01 k/uL Absolute nRBC <0.01 Performed By: #### CBC, PT #### [facility] [address], [place] [address] PROTIME Collected: 12/31/2017 Status: F Source: PLANO 1:49 PM [facility] REPOSITORY TYPE CODE TESTS RESULT OUT OF RANGE REFERENCE UNITS LAB PSEC 9.7-13.0 sec High PT Sec 14.3 LAB INR 0.9-1.3 High PT INR 1.4 Result Comment: Vitamin K Antagonist (VKA) Therapeutic Range: INR 2 to 3 (Target INR of 2.5) Note: For patients treated with VKA drugs, such as warfarin, the [place] [employer] 2012 Guideline recommends a therapeutic INR range of 2 to 3 (target INR of 2.5). This recommendation includes high-risk patients with antiphospholipid syndrome with previous arterial or venous thromboembolism, current-generation mechanical or bioprosthetic aortic heart valve replacement. Note: Patients with mechanical aortic valve replacement and additional risk factors for thromboembolic events (atrial fibrillation, previous thromboembolism, LV dysfunction, hypercoagulable conditions) or an older generation mechanical AVR (i.e., ball in-Cage) or any mechanical MVR should have a INR therapeutic range of 2.5 to 3.5 (target INR of 3). Milo GH, et al. Chest 2012, 141:7S-47S Mateo RA, et al. [facility] 2017, 70: 252-289 Performed By: #### CBC, PT #### [facility] [address] [place] [address] CONSULT PROG Observed: 12/31/2017 Status: COMPLETED Source: PLANO 12:53 PM [facility] REPOSITORY O ID: [id number] Author: Sixto Quick Service: Nephrology Author Type: Physician Type: Consult Progress Note Filed: 12/31/2017 3:24 PM Note Text: CONSULT PROGRESS NOTE NEPHROLOGY SERVICE SERVICE DATE: 12/31/2017 SERVICE TIME: 12:53 PM Subjective INTERVAL HISTORY: No acute events overnight Had 3.2L removed in dialysis yesterday Reports leg swelling improving MEDICATIONS: Current Medications Reviewed Objective PHYSICAL EXAM: BP 107/51 Pulse 66 Temp 36.8 ?C (98.3 ?F) (Oral) Resp 16 Ht 193 cm (6' 4) Wt 114.5 kg (252 lb 6.4 oz) SpO2 95% BMI 30.72 kg/m? Intake/Output Summary (Last 24 hours) at 12/31/17 1253 Last data filed at 12/31/17 0900 Gross per 24 hour Intake 540 ml Output 3250 ml Net -2710 ml GEN: Obese adult male. No acute distress. Cooperative. Alert and oriented x3. Seen on hemodialysis HEENT: NC/AT. Moist mucous membranes. RIJ c/d/i, nontender. NECK: RIJ temporary dialysis catheter in place RESP: CTAB, no rales/wheezes/rhonchi. Normal respiratory effort CV: RRR, S1, S2 normal, no murmurs/rubs/gallops. ABD: Soft. Nondistended, Nontender. Bowel sounds present. EXTR: Warm and perfused. Bilateral peripheral edema improved, pitting to knee. NEURO: CN II-XII grossly intact. No focal deficit. SKIN: Skin color, texture, turgor normal. No rashes or lesions on exposed skin. ACCESS: RIJ temporary dialysis catheter DATA: Diagnostic tests reviewed for today's visit: Most recent labs and imaging results. Recent Labs 12/31/1742412/30/1754012/29/17140712/29/176 12/27/17231712/27/17200612/26/172155 NA 137 135* -- 134* 137 -- -- 140 K 3.9 3.9 -- 3.9 4.3 -- -- 4.4 CHLOR 101 101 -- 103 110* -- -- 116* CO2 29 23 -- 22 20* -- -- 15* BUN 22 34* -- 44* 52* -- -- 60* CREAT 3.92* 4.63* -- 4.74* 4.50* -- -- 5.01* GLUC 83 87 -- 99 81 -- -- 96 ANION 7* 11 -- 9 7* -- -- 9 CA 7.2* 7.5* -- 7.5* 7.6* -- -- 7.1* P 3.0 3.8 4.4 4.1 4.4 4.5 < > 5.8* MG 1.8 -- -- 1.7 -- 1.8 -- 1.8 < > = values in this interval not displayed. Recent Labs 12/31/1742412/30/1754012/29/171407 WBC 3.42* 4.87 4.62 HB 6.9* 6.8* 7.4* HCT 20.9* 20.6* 22.3* PLT 66* 66* 64* Assessment/Plan 62 yo M w PMH of Afib on Eliquis s/p PPM/DCCV, s/p AVR, h/o CVA, iron def anemia, h/o gastric bypass, h/o GI bleed, hypothyroidism transferred for further evaluation of IRINA and hemolytic anemia. OSH GI eval without source, + hemolysis, multiple pRBC transfusions locally, IRINA with cr 4.1 on admission Renal Bx /, without definitive diagnosis, by report. Also with Bone marrow bx. ? 1. IRINA-Anuric,concern for infection-related GN based on review of OSH renal bx slides (focal crescentic GN with IgM/C3 deposits) vs lymphoproliferative process. C3 low, ANCA +, mild increase in MPO, FATOU-, DULCE-, Petar+, anti-ds DNA+, cryoglobulin 216. Blood cultures -ve, HIV/HepB/HepC -ve. Trans-thoracic echo without vegetation. CT abd with hematoma L rectus. On CRRT 12/27-12/28 due to worsening hypervolemia. Received IHD 12/29, 12/30. Awaiting Bartonella PCR. 2. Hyperkalemia-resolved 3. NAGMA-on sodium bicarb 4. Normocytic anemia-likely 2/2 acute blood loss and chronic disease. S/p several PRBCs. Awaiting OSH BM bx review by octaviano ackerman following. 5. Thrombocytopenia 6. Access: [facility] placed 12/27 ? -Hyponatremia. -. S/P AVR. -Recurrent GIB. -Acute blood loss anemia. -Thrombocytopenia. -Iron deficiency anemia. -Heyde's syndrome. -Rectus sheath hematoma. -Acquired hypothyroidism. -Atrial fibrillation. S/P DCCV and LAAL. -SSS. S/P PPM. -Essential HTN. -Vitamin B 12 deficiency. -Hypoalbuminemia. -S/P CVA with residual dysphagia and silent aspiration. -Obesity class I. S/P Min-en-Y bypass. -Lymphadenopathy. ? PLAN -Recommend furosemide stress test of metolazone 5 mg and lasix 120 mg IV. If UOP <200cc over 2 hours, recommend discontinuing Herring -Dialysis today for fluid removal -Strict I/Os -Daily renal function panel -Renally dose medications ? Will follow SIGNATURE: Dilcia Horner MD PATIENT NAME: Frank Rivera DATE: December 31, 2017 TIME: 12:53 PM PAGER: [phone] [facility] [place] [facility] STAFF PHYSICIAN NOTE OF PERSONAL INVOLVEMENT IN CARE I have reviewed the progress note obtained and documented by Dr. Horner and I personally participated in the hernandez components. I have discussed the case and management of the patient's care. I have revised and amended the note to reflect my examination, assessment and plan. I saw th patient on IUF (orders entered in [facility]). Will continue IHD MWF alternated with IUF to decrease volume overload. I had a conversation with the patient's relatives and answered their questions. Sixto Quick MD Staff Nephrology and Hypertension [facility] Beeper Number: [id number] Date of Service: 12/31/2017 Time of Service: 3:22 PM TYPE AND SCREEN Collected: 12/31/2017 Status: F Source: [place]AN[place] 12:15 PM [facility] REPOSITORY TYPE CODE TESTS RESULT OUT OF REFERENCE UNITS RANGE LAB %ABR A ABO/RH(D) POSITIVE LAB % Antibody NEG Screen Performed By: #### TSCR #### [facility] [address] [id number] CONSULT PROG Observed: 12/31/2017 Status: COMPLETED Source: [place] 7:46 AM [facility] REPOSITORY HNO ID: [id number] Author: Gee Ruiz Service: Infectious Disease Author Type: Physician Type: Consult Progress Note Filed: 12/31/2017 4:11 PM Note Text: INFECTIOUS DISEASE CONSULT PROGRESS NOTE SERVICE DATE: 12/31/2017 SERVICE TIME: 7:46 AM Subjective INTERVAL HISTORY: Overnight, patient afebrile without leukocytosis, no acute events Awaiting lymph node excisional biopsy PERTINENT ROS: Positive for fatigue, normal dyspnea and cough, edema, abdominal pain - otherwise 14 system ROS negative Current Facility-Administered Medications: aspirin, enteric coated 81 mg tab(s) 81 mg ORAL DAILY metoprolol tartrate (short acting) 12.5 mg tab(s) (LOPRESSOR) 12.5 mg ORAL BID senna-docusate 8.6-50 mg 1 tablet (SENNA-S) 1 tablet ORAL/FEEDING TUBE BID polyethylene glycol 3350 17 g packet (MIRALAX, GLYCOLAX) 17 g ORAL DAILY sodium bicarbonate 650 mg tab(s) 650 mg ORAL TID docusate sodium 100 mg cap(s) (COLACE) 100 mg ORAL BID sodium citrate 4% 3-6 mL catheter lock 3-6 mL INTRALUMINAL PRN tamsulosin ER 0.4 mg cap(s) (FLOMAX) 0.4 mg ORAL DAILY pantoprazole DR 40 mg tab(s) (PROTONIX) 40 mg ORAL BID levothyroxine 200 mcg tab(s) (SYNTHROID) 200 mcg ORAL BEFORE BREAKFAST DAILY atorvastatin 80 mg tab(s) (LIPITOR) 80 mg ORAL AT BEDTIME Objective PHYSICAL EXAM: Vital Signs: BP 120/73 Pulse 97 Temp 37.2 ?C (99 ?F) (Oral) Resp 16 Ht 193 cm (6' 4) Wt 114.5 kg (252 lb 6.4 oz) SpO2 94% BMI 30.72 kg/m? GENERAL APPEARANCE: Patient in no acute distress, appears ill - seen in dialysis SKIN: Skin pale, warm to touch. Boils on buttocks noted. No peripheral signs of infectious endocarditis HEAD/SINUSES: No significant findings. EYES: PERRLA, conjunctivae clear. EARS: External ears normal. NOSE: Nares normal. Septum midline. OROPHARYNX: Lips, mucosa, and tongue normal. Teeth and gums normal. Oropharynx normal. NECK: Supple, full range of motion, no lymphadenopathy BACK: no CVA tenderness, no spinal point tenderness, no paraspinal tenderness LUNGS: Normal breath sounds, clear to auscultation HEART: Regular rate/rhythm, heart sounds consistent with AV replacement ABDOMEN: Soft, mildly tender, no palpable masses, normal bowel sounds, outline from mapping out of hematoma present EXTREMITIES: 3+ pitting edema noted in BLE NEURO: Awake, alert and oriented x3, no involuntary motions. DATA: Diagnostic Tests Reviewed for Today's Visit: Most recent labs and imaging results. CBC, Coags, BMP, Mg, Phos Recent Labs 12/31/17 0425 12/30/17 0541 12/29/17 1408 12/29/17 0416 12/29/17 0228 WBC 3.42* 4.87 4.62 -- -- 4.58 HB 6.9* 6.8* 7.4* -- -- 7.1* HCT 20.9* 20.6* 22.3* -- -- 21.2* PLT 66* 66* 64* -- -- 60* APTT -- 36.5* -- -- -- 38.6* NA 137 135* -- 134* -- -- K 3.9 3.9 -- 3.9 -- -- CHLOR 101 101 -- 103 -- -- CO2 29 23 -- 22 -- -- BUN 22 34* -- 44* -- -- CREAT 3.92* 4.63* -- 4.74* -- -- GLUC 83 87 -- 99 -- -- CA 7.2* 7.5* -- 7.5* -- -- MG 1.8 -- -- 1.7 -- -- P 3.0 3.8 4.4 4.1 < > -- < > = values in this interval not displayed. MICROBIOLOGY: 12/25 Blood culture x2 - negative Urine culture - negative Staph aureus nasal - negative HIV - negative Hepatitis panel - negative Bone marrow biopsy (from [facility], full results in patient record on nursing floor): Normocellular marrow with mild plasmacytosis. Iron-absent Peripheral blood-macrocytic anemia and thrombocytopenia. Flow cytometry study from [facility] shows no evidence for abnormal myeloid maturation or an increased blast population. There is no evidence for a lymphoproliferative disorder or plasma cell neoplasm. Cytogenetic studies are pending at this time. ? 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 See comment. - Tubular atrophy and interstitial fibrosis, mild. BRYAN/elizabeth 12/30/2017 COMMENT Light microscopy unequivocally shows a focal proliferative glomerulonephritis with up to 4 glomeruli out of 29 sampled showing cellular or fibrocellular crescents and one additional glomerulus showing a more chronic lesion with a segmental scar and fibrous crescent. Focally prominent neutrophil accumulation is noted within areas of proliferation. Immunofluorescence reveals strong staining for IgM and C3 with lesser staining for multiple other reactants. The strong staining for IgM (which does not appear to be artifactual) would preclude the diagnosis of C3 nephropathy. Instead, IgM staining of this type, in combination with crescentic glomerulonephritis has been described in infection-related glomerulonephritis (see Estefanía et al AJKD 63:1060-65, 2014). Given the finding of low C3, the finding of focal lymphadenopathy and the multiple borderline positive serologic findings such as mild MPO and dsDNA would all suggest a potential underlying infectious etiology. Specifically, correlation to exclude Bartonella infection, which can involve cardiac prosthesis and produce lymphadenopathy and be essentially undetectable on routine blood cultures should be performed. Also potentially in the differential diagnosis, given the positive dsDNA serology would be lupus nephritis, though it would be highly unusual for IgM to predominate over IgG in this setting. Impression/Recommendations Mr. 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 ID has been consulted to help rule out occult infection. Recs: Await Bartonella PCR Please reorder Bartonella serology Please obtain CHANDRKAANT to rule out infective endocarditis No indication for empiric treatment for Bartonella at this time SIGNATURE: Todd Montana MD PATIENT NAME: Frank Rivera DATE: December 31, 2017 TIME: 7:46 AM PAGER/CONTACT #: [phone] Chart reviewed, patient examined, and hernandez elements of history and physical examination of the patient confirmed. I reviewed the resident/fellow's note, examined the patient, and agree with the documented findings and plan of care. I called Lab Client Service to add Bartonella serology. It could not be added, so I reordered. Discussed with the team directly. He needs CHANDRAKANT. There are many bacteria other than Bartonella associated with IE and his renal pathology. If CHANDRAKANT is concerning, we will treat him with ceftriaxone, gentamicin, plus doxycycline. Gee Ruiz MD Pager [phone] December 31, 2017 4:11 PM BASIC METABOLIC PANL Collected: 12/31/2017 Status: F Source: PLANO 4:25 AM [facility] REPOSITORY TYPE CODE TESTS RESULT OUT OF REFERENCE UNITS RANGE LAB GLU 74-99 mg/dL Glucose 83 Result Comment: The [place] Diabetes Association (ADA) provides guidance for cutoff values for fasting glucose and random glucose. The ADA defines fasting as no caloric intake for at least 8 hours. Fas ting plasma glucose results between 100 to 125 mg/dL indicate increased risk for diabetes (prediabetes). Fasting plasma glucose results greater than or equal to 126 mg/dL meet the criteria for diagnosis of diabetes. In the absence of unequivocal hyperglycemia, results should be confirmed by repeat testing. In a patient with classic symptoms of hyperglycemia or hyperglycemic crisis, random plasma glucose results greater than or equal to 200 mg/dL meet the criteria for diagnosis of diabetes. Reference: Standards of Medical Care in Diabetes 2016, [place] [employer] Association. Diabetes Care. 2016.39(Suppl 1). LAB BUN 9-24 mg/dL BUN 22 LAB CRET 0.73-1.22 mg/dL Creatinine High 3.92 LAB NA 136-144 mmol/L Sodium 137 LAB K 3.7-5.1 mmol/L Potassium 3.9 LAB CL 97-105 mmol/L Chloride 101 LAB CO2 22-30 mmol/L CO2 29 LAB AGAP 9-18 mmol/L Low Anion Gap 7 LAB CA 8.5-10.2 mg/dL Low Calcium, Total 7.2 LAB GFRAA eGFR- Amer. 19 LAB GFRNAA . eGFR-All Other Races 16 Result Comment: eGFR (Estimated GFR) Units of measure: mL/min/1.73 meters squared eGFR is derived from the reexpressed MDRD Study equation using the following parameters: serum creatinine, age, gender and race. The creatinine assay has been calibrated to be traceable to IDMS. An eGFR <60 mL/min/1.73m2 for >3 months is consistent with chronic kidney disease. Refer to KDOQI guidelines for clinical interpretation. In patients with unstable renal function, e.g. those with acute kidney injury, the eGFR may not accurately reflect actual GFR. Performed By: #### BMP, MG1, PHOS, CBCDIF, PNHPNL #### [facility] [employer] [address] [place], [place] [address] MAGNESIUM Collected: 12/31/2017 Status: F Source: PLANO 4:25 AM [facility] REPOSITORY TYPE CODE TESTS RESULT OUT OF REFERENCE UNITS RANGE LAB MG 1.7-2.3 mg/dL Magnesium 1.8 Performed By: #### BMP, MG1, PHOS, CBCDIF, PNHPNL #### [facility] [employer] [address] [place], [place] [address] PHOSPHORUS Collected: 12/31/2017 Status: F Source: [place] 4:25 AM [facility] REPOSITORY TYPE CODE TESTS RESULT OUT OF REFERENCE UNITS RANGE LAB PHOS 2.7-4.8 mg/dL Phosphorus 3.0 Performed By: #### BMP, MG1, PHOS, CBCDIF, PNHPNL #### [facility] [address] [place] [id number] CBC AND DIFFERENTIAL Collected: 12/31/2017 Status: F Source: [place]AN[place] 4:25 AM [facility] REPOSITORY TYPE CODE TESTS RESULT OUT OF REFERENCE UNITS RANGE LAB WBC 3.70-11.00 k/uL Low WBC 3.42 LAB RBC 4.20-6.00 m/uL Low RBC 2.23 LAB HGB 13.0-17.0 g/dL Low Hemoglobin 6.9 LAB HCT 39.0-51.0 % Low Hematocrit 20.9 LAB MCV 80.0-100.0 fL MCV 93.7 LAB MCH 26.0-34.0 pG MCH 30.9 LAB MCHC 30.5-36.0 g/dL MCHC 33.0 LAB RDWCV 11.5-15.0 % RDW-CV High 17.8 LAB PLTCT 150-400 k/uL Low Platelet Count 66 Result Comment: No clot detected. LAB MPV 9.0-12.7 fL MPV 10.7 LAB ANEUT % Neut% 63.4 LAB AANEUT 1.45-7.50 k/uL Abs Neut 2.16 LAB ALYMP % Lymph% 27.2 LAB AALYMP 1.00-4.00 k/uL Abs Low Lymph 0.93 LAB AMONO % Pope% 8.2 LAB AAMONO <0.87 k/uL Abs Pope 0.28 LAB AEOS % Eosin% 0.9 LAB AAEOS <0.46 k/uL Abs Eosin 0.03 LAB ABASO % Baso% 0.3 LAB AABASO <0.11 k/uL Abs Baso <0.03 LAB AUNRBC 0 /100 WBC NRBCs 0.0 LAB ABNRBC <0.01 k/uL Absolute nRBC <0.01 LAB DTYP DTYPE Auto Diff Performed By: #### BMP, MG1, PHOS, CBCDIF, PNHPNL #### [facility] [address] [place], [place] [address] PNH PANEL BY FCM Collected: 12/31/2017 Status: F Source: PLANO 4:25 AM [facility] REPOSITORY TYPE CODE TESTS RESULT OUT OF REFERENCE UNITS RANGE LAB PNHINT Negative. No PNH clone Interpretation detected. Negative. No PNH clone detected. Result Comment: Immunophenotypic analysis was performed using gating antibodies Glycophorin A for erythrocytes and CD45, CD15, and CD33 for granulocytes. PNH erythrocytes were identified by lack of CD59 expression. PNH erythrocyte clones may be divided into those with partial loss of CD59 (PNH type II cells) or complete loss of CD59 (PNH type III cells). PNH granulocytes were identified by combined absence of CD24 expression and lack of reactivity to fluorescent aerolysin (FLAER). The lower limit of detection is 0.01% PNH type cells. This test was developed and its performance characteristics determined by [facility]'s [facility] Pathology and Laboratory Medicine [place] ([facility]). It has not been cleared or approved by the FDA. -[facility] is regulated under CLIA as qualified to perform high-complexity testing. This test is used for clinical purposes. It should not be regarded as investigational or for research. LAB PNHRBC PNH Erythro <0.01% Clone LAB PNHWBC PNH Granulo <0.01% Clone LAB PNHREV Reviewed by Reviewed by Daniel Tipton M.D., Ph.D ([id number]) Performed By: #### BMP, MG1, PHOS, CBCDIF, PNHPNL #### [facility] [address] [place], [place] [address] NURSING PROG Observed: 12/30/2017 Status: COMPLETED Source: [place]AN[place] 5:52 PM [facility] REPOSITORY HNO ID: [id number] Author: Esperanza (Rn) DIEUDONNE Mack Service: (none) Author Type: Registered Nurse Type: Nursing Progress Note Filed: 12/30/2017 5:54 PM Note Text: Nursing Progress Note Patient Name: Frank Rivera Patient Location: H081 [id number]/[id number] Daily Note: Pt is A+Ox3, no complaints of pain. Herring patent, draining tea colored urine. Dialysis completed today, 1 unit PRBC given at dialysis as ordered. Pt up with one assist. Has boils on ischium, draining small amount of blood. No other complications at this time. Will continue to monitor. This note was completed by: Esperanza Mack RN CONSULT PROG Observed: 12/30/2017 Status: COMPLETED Source: PLANO 4:56 PM [facility] REPOSITORY HNO ID: [id number] Author: Luciano Palmer (Fel) Service: Hematology Author Type: Fellow Type: Consult Progress Note Filed: 12/30/2017 4:57 PM Note Text: [facility] Inpatient Consult Progress Note PATIENT NAME: Frank Rivera [facility] ATTENDING PHYSICIAN: Dr. Greer DATE OF SERVICE: December 30, 2017 Reason for consultation: Concern for autoimmune hemolytic anemia INTERVAL HISTORY: No acute events overnight, HDS Seen walking around room Feeling better with less edema No new complaints HISTORY OF PRESENT ILLNESS: Mr. Rivera is a 62 year old man with history of afib s/p PPM and DCCV, on apixaban, HTN, hypothyroid, aortic stenosis s/p bioprosthetic ACR and RUDY ligation, sick sinus syndrome, h/o CVA, retinal embolism, h/o Min-en-Y bypass, chronic iron deficiency anemia, UGIB (1997, 2014, 2015) who presented to OSH with several weeks of worsening fatigue and shortness of breath. PCP ordered a CBC which was notable for Hgb ~7.5. He was admitted to OSH for further work up. On presentation he was noted to have guaiac pos stool and IRINA with Cr 4.12/BUN 70. He underwent GI work up with EGD, colonoscopy, and tagged RBC scan which were all negative. Renal function did not improve and he ultimately underwent a renal biopsy with prelim concerns for C3 nephropathy. A BMBX was also performed looking for plasma cell neoplasm given anemia and acute renal failure. Notable Labs at OSH on 12/23: CBC WBC 3.8, Hg 8.4, Plt 84 CMP Na 141, K 5.6, Chloride 119, CO2 17, BUN 60, Cr 3.71 Total protein 7 IgG 3273 H IgA 349 IgM 159 Albumin 2.4 Albmin/glboulin 0.6 Alpha 1 gloublins Lis 0.2 Alpha 2 globulins Lis 0.5 Beta glboluins Lis 0.87 Gamma globulins 4.6 (H) Complement C3 64 (L) Complement C4 17 Free [place] 402.7 (H) Free Lambda 378.8 (H) Free [place]/Lambda ratio 1.06 ? 12/24 labs: CBC shows WBC 3.2, Hg 7.8, Plt 80 CMP shows Na 141, K 5.3, CO2 17, Chlroide 118, BUN 61, Cr 4.07, Phosphorsu 5.5 Bone marrow biopsy (full results in patient record on nursing floor): Normocellular marrow with mild plasmacytosis. Iron-absent Peripheral blood-macrocytic anemia and thrombocytopenia. Flow cytometry study from [facility] shows no evidence for abnormal myeloid maturation or an increased blast population. There is no evidence for a lymphoproliferative disorder or plasma cell neoplasm. Cytogenetic studies are pending at this time. ? Kidney biopsy (full report in his patient record on nursing floor): -Glomeruli showing focal segmental mesangiolysis (3 of 28 glomeruli), vague nodularity (2 of 28 glomeruli) and a single cellular crescent (1 of 28 glomeruli). -Mild tubular injury. -Moderate interstitial fibrosis and tubular atrophy. -strong granular IgM and C3 staining on immunofluorescence, with weak granular staining for C1q and kappa and lambda light chains. -Electron microscopy with occasional, poorly definied electron- dense areas in mesangium. ? Patient reporting lower abd pain, more significant on Left lower quadrant which started today. Reports decreased urine output. Urine that he does make is tea colored, no cruz blood, non-foamy. He reports fluid retention and 10+lb weight gain since hospitalization. Denies recent tobacco or alcohol intake. 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 He has received 6U PRBC and 2U PLT transfusions at OSH prior to transfer. ROS: 01/03 reviewed and negative except as above ALLERGIES ALLERGIES Allergen Reactions - Penicillin Hives MEDICATIONS Current Facility-Administered Medications: aspirin, enteric coated 81 mg tab(s) 81 mg ORAL DAILY metoprolol tartrate (short acting) 12.5 mg tab(s) (LOPRESSOR) 12.5 mg ORAL BID senna-docusate 8.6-50 mg 1 tablet (SENNA-S) 1 tablet ORAL/FEEDING TUBE BID polyethylene glycol 3350 17 g packet (MIRALAX, GLYCOLAX) 17 g ORAL DAILY sodium bicarbonate 650 mg tab(s) 650 mg ORAL TID docusate sodium 100 mg cap(s) (COLACE) 100 mg ORAL BID sodium citrate 4% 3-6 mL catheter lock 3-6 mL INTRALUMINAL PRN tamsulosin ER 0.4 mg cap(s) (FLOMAX) 0.4 mg ORAL DAILY pantoprazole DR 40 mg tab(s) (PROTONIX) 40 mg ORAL BID levothyroxine 200 mcg tab(s) (SYNTHROID) 200 mcg ORAL BEFORE BREAKFAST DAILY atorvastatin 80 mg tab(s) (LIPITOR) 80 mg ORAL AT BEDTIME PHYSICAL EXAMINATION: BP 126/63 Pulse 62 Temp 36.5 ?C (97.7 ?F) (Temporal Artery) Resp 18 Ht 193 cm (6' 4) Wt 114.8 kg (253 lb 1.6 oz) SpO2 96% BMI 30.81 kg/m? Intake/Output Summary (Last 24 hours) at 12/30/17 1656 Last data filed at 12/30/17 1400 Gross per 24 hour Intake 1140 ml Output 50 ml Net 1090 ml General: Elderly man, sitting in chair. In NAD HEENT: PERRLA, EOMI, anicteric sclera, MMM Neck: Supple Resp: No use of accessory muscles, non labored breathing Abd: Soft, LLQ with purple marking (by primary team) but no obvious bruising. Large hematoma is palpated. MSK: +edema, slightly improved from yesterday. Neuro: AAOx3, no acute focal deficits. Skin: Warm, dry, intact. No rashes. Lines without oozing. LABORATORY DATA Recent Labs 12/30/17 0541 12/29/17 1408 12/29/17 0228 WBC 4.87 4.62 4.58 RBC 2.21* 2.37* 2.29* HB 6.8* 7.4* 7.1* HCT 20.6* 22.3* 21.2* PLT 66* 64* 60* MCV 93.2 94.1 92.6 MCH 30.8 31.2 31.0 MCHC 33.0 33.2 33.5 RDWCV 17.9* 17.9* 17.9* MPV 10.5 10.0 10.2 NEUTP 71.3 72.3 74.8 ABSNEUT 3.47 3.32 3.42 LYMPHP 22.6 22.1 20.7 MONOP 5.7 5.2 4.1 EODINP 0.2 0.2 0.2 BASOP 0.2 0.2 0.2 ABSMONO 0.28 0.24 0.19 ABSEOSIN <0.03 <0.03 <0.03 ABSBASO <0.03 <0.03 <0.03 Recent Labs 12/30/17 0541 12/29/17 1408 12/29/17 0416 12/29/17 0228 12/27/17 2318 12/27/172006 NA 135* -- 134* -- 137 -- K 3.9 -- 3.9 -- 4.3 -- CHLOR 101 -- 103 -- 110* -- CO2 23 -- 22 -- 20* -- CREAT 4.63* -- 4.74* -- 4.50* -- BUN 34* -- 44* -- 52* -- GLUC 87 -- 99 -- 81 -- P 3.8 4.4 4.1 -- 4.4 4.5 TPROT -- -- -- -- 6.1* -- ALB -- -- -- -- 1.9* -- MG -- -- 1.7 -- -- 1.8 CA 7.5* -- 7.5* -- 7.6* -- ALKPHOS -- -- -- -- 141* -- TBILI -- -- -- -- 0.8 -- AST -- -- -- -- 32 -- ALT -- -- -- -- 22 -- APTT 36.5* -- -- 38.6* 36.5* -- PATHOLOGY: IMAGING: Reviewed in EPIC ASSESSMENT AND PLAN: Mr. Rivera is a 62 year old man with history of afib s/p PPM and DCCV, on apixaban, HTN, hypothyroid, aortic stenosis s/p bioprosthetic ACR and RUDY ligation, sick sinus syndrome, h/o CVA, retinal embolism, h/o Min-en-Y bypass, chronic iron deficiency anemia, UGIB (1997, 2014, 2015) who presented to OSH with several weeks of worsening fatigue and shortness of breath. Found to have acute kidney injury and throbocytopenia and anemia refractory to blood transfusions. Hematology consulted for autoimmune hemolytic anemia. - Smear reviewed. Notable for few schistocytes, yojana cells, rare spherocytes. Decreased platelets without clumping. Normal leukocytes. - CT a/p with rectus sheath hematoma. Pt denies any procedures or injections into abd. Unclear why he would develop a spontaneous hematoma without overt evidence of coagulopathy. - CT a/p and LE dopplers also showed LAD as noted above. Will need to r/o lymphoproliferative disorder. Overall picture seems mores consitent with an autoimmune process. Note, weakly positive FELICIA however eluate was negative. Given this, patient does not have autoimmune hemolytic anemia but rather likely has elevated immunoglobulins (? Due to autoimmune process). Flow cytometry negative. LDH stable. Epo level inappropriately normal at 16.9. IgG elevated but IgA and IgM normal. Recommendations: - CBC+diff daily - Recommend LN excisional biopsy. Agree with holding steroids for now while we purse biopsy to r/o lymphoproliferative process - Discussed with pathology - they reviewed BM slides from OSH, but have requested block to be sent for further assessment. Patient discussed with staff, Dr. Greer. Luciano Palmer MD Fellow, Hematology and Medical Oncology Pager: [phone] THERAPY NT Observed: 12/30/2017 Status: COMPLETED Source: PLANO 3:55 PM [facility] REPOSITORY HNO ID: [id number] Author: Vasyl (Pt) DYLON Vivas Service: Physical Therapy Author Type: Physical Therapist Type: Therapy (PT/OT/Speech/Resp) Filed: 12/30/2017 3:55 PM Note Text: PHYSICAL THERAPY MISSED VISIT SERVICE DATE: 12/30/2017 SERVICE TIME: 1320 to 1320 ROOM: [facility] Attempted Treatment. Patient not seen due to (IHD). PT will continue to check on pt as able. SIGNATURE: Vasyl Vivas PT PATIENT NAME: Frank Rivera DATE: December 30, 2017 TIME: 3:55 PM NUTRITION Observed: 12/30/2017 Status: COMPLETED Source: [place]AN[place] 3:20 PM [facility] REPOSITORY O ID: [id number] Author: Fabiola Reed Service: Nutrition Therapy Author Type: Registered Dietitian Type: Nutrition Filed: 12/30/2017 3:27 PM Note Text: NUTRITION THERAPY PROGRESS NOTE SERVICE DATE: 12/30/2017 SERVICE TIME: 12:00PM RECOMMENDED DIAGNOSIS: MILD PROTEIN-CALORIE MALNUTRITION per Registered Dietitian on 12/25 NUTRITION CARE PLAN Intervention: 1. Consider liberalizing diet to Electrolyte Controlled: 2gm Na for increased calories. 2. Will provide Nepro BID and Ensure Clear BID. 3. Encourage oral intakes. Monitor and Evaluation: Goal: Meet >75% of estimated needs Monitor fluid/electrolyte balance Monitor labs, I/Os, vital signs, weight Discharge Nutrition Recommendations: Diet: Renal Supplements: high calorie/protein as needed Per HPI: 62 year old male with atrial fibrillation and SSS s/p PPM, HTN, hypothyroidism, aortic stenosis s/p AVR and RUDY, history of Min-en-Y bypass c/b recurrent GIB, ADRIANNE, B12 deficiency, who presents to F on 12/24/17 with fatigue and shortness of breath who was transferred from OSH with IRINA and renal biopsy concerning for C3 nephropathy. MICU Course: 12/26/17: Admitted to MICU, started on sevelamer 800mg qAC for hyperphosphatemia, TDC on hold until coagulopathy reversed 12/27/17: Dialysis catheter line placed, CVVHD initiated 12/28/17: Completed CVVHD, switched to IHD, General Surgery consented patient for surgical excisional lymph node biopsy 12/29/17: Transferred to [facility]. Gen Surg deferred lymph node biopsy until BMBx and renal bx slides are evaluated here Nutritional Intake: <50% estimated energy need over the past 5 day(s) Per I/O's, pt consuming an average of 45% of his meals (600 kcal/d). Pt reports having poor appetite. He is agreeable to trying oral supplements. [place] Body Weight: 89 kg Dosing Weight: 116 kg Resting Metabolic Rate: 2067 Estimated kilocalorie needs: 1740- 2320 kilocalories determined by 15-20 kcal/kg Estimated protein needs: 98-116 grams determined by 1.1-1.3 g/kg Dosing weight Estimated fluid needs: 2850-7600 milliliters based on 1 mL per kcal Current Diet Order DIET RENAL Order Specific Question: Renal Answer: 90GM PRO / 2GM K / 2 GM NA / LOW PHOSPHORUS Lines and Drains: Peripheral 12/26/17 1515 Short Right Antecubital 20 Gauge (Active) Peripheral 12/27/17 1053 Assessment Short Right Forearm 20 Gauge (Active) Indwelling Urinary Catheter 12/25/17 Assessment Herring (Active) Height: 193 cm (6' 4) Admission Weight: 115.7 kg (255 lb 1.6 oz) Current Weight: 114.8 kg (253 lb 1.6 oz) Body mass index is 30.81 kg/m?. Recent Labs 12/30/17 0541 12/29/17 0416 12/27/17 2318 GLUC 87 -- 99 -- 81 BUN 34* -- 44* -- 52* CREAT 4.63* -- 4.74* -- 4.50* NA 135* -- 134* -- 137 K 3.9 -- 3.9 -- 4.3 CHLOR 101 -- 103 -- 110* CO2 23 -- 22 -- 20* ALB -- -- -- -- 1.9* P 3.8 < > 4.1 -- 4.4 HB 6.8* < > -- < > 7.1* HCT 20.6* < > -- < > 21.8* WBC 4.87 < > -- < > 3.03* MG -- -- 1.7 -- -- < > = values in this interval not displayed. Current Facility-Administered Medications: aspirin, enteric coated 81 mg tab(s) 81 mg ORAL DAILY metoprolol tartrate (short acting) 12.5 mg tab(s) (LOPRESSOR) 12.5 mg ORAL BID senna-docusate 8.6-50 mg 1 tablet (SENNA-S) 1 tablet ORAL/FEEDING TUBE BID polyethylene glycol 3350 17 g packet (MIRALAX, GLYCOLAX) 17 g ORAL DAILY sodium bicarbonate 650 mg tab(s) 650 mg ORAL TID docusate sodium 100 mg cap(s) (COLACE) 100 mg ORAL BID sodium citrate 4% 3-6 mL catheter lock 3-6 mL INTRALUMINAL PRN tamsulosin ER 0.4 mg cap(s) (FLOMAX) 0.4 mg ORAL DAILY pantoprazole DR 40 mg tab(s) (PROTONIX) 40 mg ORAL BID levothyroxine 200 mcg tab(s) (SYNTHROID) 200 mcg ORAL BEFORE BREAKFAST DAILY atorvastatin 80 mg tab(s) (LIPITOR) 80 mg ORAL AT BEDTIME Vitamin and Mineral Labs in the past year: Recent Labs 12/24/17 1632 TIBC <157* FE 140 MAX 422.0 MNT Billing Type: Re-assess/15 min 2 units SIGNATURE: CARLOZ Cazares PATIENT NAME: Frank Rivera DATE: December 30, 2017 TIME: 3:21 PM PAGER: [phone] CONSULT Observed: 12/30/2017 Status: COMPLETED Source: [place] 2:44 PM [facility] REPOSITORY O ID: [id number] Author: Gee Ruiz Service: Infectious Disease Author Type: Physician Type: Consults Filed: 12/30/2017 6:01 PM Note Text: INITIAL CONSULT INFECTIOUS DISEASE SERVICE DATE: 12/30/2017 SERVICE TIME: 2:45 PM We were asked to evaluate Mr. Frank Rivera, a 62 year old yo male by Dr. Baumann for rule out of occult infection. Our findings and recommendations will be communicated through the shared medical record. Subjective HPI: Mr. 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 Patient initially presented to [facility] on 12/14 after having labs drawn by his PCP due to feeling fatigued and SOB. Pt was found to have a Cr 4.12 (Cr 0.99 in 10/2017) with a positive stool guiac. EGD and Colonoscopy were negative for GI bleed, and a tagged RBC scan was also negative. Patient received total of 4u pRBC and 2u PLTs. Renal U/S 12/15 showed incidental gallstones and pericholecystic fluid, mural thickness was not able to be evaluated and acute cholecystitis was not able to be evaluated. 12/17 a videoscopic swallow exam showed silent aspiration with ingestion of thin liquids. In the context of anemia with worsening renal function, there were also concerns for multiple myeloma. Patient had a bone marrow biopsy which was negative for myeloma. Pt had a right renal biopsy on 12/18 due to unexplained rise in Cr. Initial results were concerning for C3 nephropathy (C3 on 12/23 was 64, C4 was 17) and patient was transferred to [facility] for further work up. 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 Nephrology started patient on 60mg prednisone daily for concerns of a glomerular process, which was subsequently held from 12/[address] Abd/Pel concerning for lymphadenopathy. Hematology was consulted for possibility of autoimmune hemolytic anemia and thought the Petar test was falsly positive secondary to hypergammaglobulinemia. 12/26 it was noted that peripheral smear was positive for a few schistocytes, yojana cells, and rare spherocytes. Primary team is hoping to rule out lymphoproliferative disorder with lymph node excisional biopsy. Patient was noted to have a rectus sheath hematoma with unclear etiology 12/25 with an associated drop of Hgb from 8.4 to 6.8 on 12/26. Patient was transferred to the MICU on 12/26 for acute hypoxemic respiratory failure for emergent dialysis given oliguria and respiratory failure 2/2 volume overload. In the MICU, a dialysis catheter was placed and CVVHD was initiated. Patient was transitioned to IHD on 12/28 and transferred to [facility] on 12/29. General Surgery has deferred lymph node biopsy until bone marrow biopsy and renal biopsy have been evaluated here. 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 ID has been consulted to help determine if there is an occult infection. Since being admitted to [facility], patient has been afebrile and without leukocytosis. However, there have been two episodes of temps to 37.8C on 12/29-12/30. Blood cultures, urine cultures were drawn on 12/25 and are negative. HIV and HEP panel negative as well. Patient had initially been placed on Flagyl and Ciprofloxacin and received a 1 time dose of Bactrim on 12/25. Patient received 3 days of Cipro and 4 days of Flagyl. Today, patient states that he has felt no fevers, chills recently. He has been more fatigued than usual but he attritbutes this to his kidney failure and fluid overload. He states that he had a stroke from a piece of calcium in November which has made swallowing difficult and thus he chokes and occasionally aspirates. He also noted that he had a sore throat with cold like symptoms of runny nose and malaise in October. Additionally, he notes that he has had more difficulty emptying his bladder over the past year, increasing significantly over the past couple months. 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 Current Facility-Administered Medications: aspirin, enteric coated 81 mg tab(s) 81 mg ORAL DAILY metoprolol tartrate (short acting) 12.5 mg tab(s) (LOPRESSOR) 12.5 mg ORAL BID senna-docusate 8.6-50 mg 1 tablet (SENNA-S) 1 tablet ORAL/FEEDING TUBE BID polyethylene glycol 3350 17 g packet (MIRALAX, GLYCOLAX) 17 g ORAL DAILY sodium bicarbonate 650 mg tab(s) 650 mg ORAL TID docusate sodium 100 mg cap(s) (COLACE) 100 mg ORAL BID sodium citrate 4% 3-6 mL catheter lock 3-6 mL INTRALUMINAL PRN tamsulosin ER 0.4 mg cap(s) (FLOMAX) 0.4 mg ORAL DAILY pantoprazole DR 40 mg tab(s) (PROTONIX) 40 mg ORAL BID levothyroxine 200 mcg tab(s) (SYNTHROID) 200 mcg ORAL BEFORE BREAKFAST DAILY atorvastatin 80 mg tab(s) (LIPITOR) 80 mg ORAL AT BEDTIME PAST MEDICAL HISTORY Diagnosis Date - Aortic stenosis - Atrial fibrillation (HCC) - CAD (coronary artery disease) of bypass graft - CVA, old, dysphagia - Heyd's syndrome (HCC) - History of Min-en-Y gastric bypass - HTN (hypertension) - Hx of sick sinus syndrome PAST SURGICAL HISTORY Procedure Laterality Date - CARPAL TUNNEL - DIALYSIS CATHETER PROCEDURE (W NOTE) 12/27/2017 - GASTRIC BYPASS, MIN-EN-Y 1995 - PERCUT AORTIC VALVE REPLACE 05/07/2017 Social History Marital status: Single Spouse name: Years of education: Number of children: Occupational History 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 Social History Main Topics Smoking status: Current Every Day Smoker Packs/day: 0.00 Years: 0.00 Types: Cigars, Cigarettes Comment: States he quit cigarretes years ago 25 yr ppd previously, last had cigar in october Alcohol use: No Drug use: No FAMILY HISTORY Problem Relation Age of Onset - Ischemic Heart Disease Mother - other (hypothyroidism) Mother - Ischemic Heart Disease Father - Thyroid Cancer Sister ALLERGIES Allergen Reactions - Penicillin Hives Objective REVIEW OF SYSTEMS: GENERAL: Positive for fatigue, recent weight gain Denies fever, chills HEENT: Negative for frequent or significant headaches. No changes in hearing or vision, no nose bleeds or other nasal problems RESPIRATORY: Denies any cough, dyspnea, or wheezing different from usual CARDIOVASCULAR: Positive for edema Denies any chest pain with exertion or at rest, palpitations GASTROINTESTINAL: Positive for abdominal pain most likely from hematoma, constipatino Denies any nausea, vomiting, diarrhea, MUSCULOSKELETAL: Denies any joint swelling, crepitus, joint pain NEURO: Denies any headaches, tremors, dizziness, vertigo, memory loss, or confusion. No weakness, numbness or tingling. HEMATOLOGY/LYMPHATIC/IMMUNOLOGIC: Positive for rectus sheath hematoma of unknown etiology ENDOCRINE: Denies any heat or cold intolerance, polyuria or polydipsia. PHYSICAL EXAM: Temp (24hrs), Av.2 ?C (99 ?F), Min:36.7 ?C (98 ?F), Max:37.8 ?C (100.1 ?F) Temp (120hrs), Av.8 ?C (98.2 ?F), Min:36.3 ?C (97.3 ?F), Max:37.8 ?C (100.1 ?F) BP 120/65 Pulse 64 Temp 36.4 ?C (97.5 ?F) (Temporal Artery) Resp 18 Ht 193 cm (6' 4) Wt 114.8 kg (253 lb 1.6 oz) SpO2 96% BMI 30.81 kg/m? GENERAL APPEARANCE: Patient in no acute distress, appears ill - seen in dialysis SKIN: Skin pale, warm to touch. No rashes or lesions. No peripheral signs of infectious endocarditis HEAD/SINUSES: No significant findings. EYES: PERRLA, conjunctivae clear. EARS: External ears normal. NOSE: Nares normal. Septum midline. OROPHARYNX: Lips, mucosa, and tongue normal. Teeth and gums normal. Oropharynx normal. NECK: Supple, full range of motion, no lymphadenopathy BACK: no CVA tenderness, no spinal point tenderness, no paraspinal tenderness LUNGS: Normal breath sounds, clear to auscultation HEART: Regular rate/rhythm, heart sounds consistent with AV replacement ABDOMEN: Soft, mildly tender, no palpable masses, normal bowel sounds, outline from mapping out of hematoma present EXTREMITIES: 3+ pitting edema noted in BLE NEURO: Awake, alert and oriented x3, no involuntary motions. LABS: WBC (k/uL) Date Value 12/30/2017 4.87 12/29/2017 4.62 12/29/2017 4.58 12/28/2017 3.83 12/28/2017 3.39 Creatinine (mg/dL) Date Value 12/30/2017 4.63 12/29/2017 4.74 12/27/2017 4.50 12/26/2017 5.01 12/26/2017 5.43 Lab Results Component Value Date NEUTP 71.3 12/30/2017 ABSNEUT 3.47 12/30/2017 LYMPHP 22.6 12/30/2017 ABSLYMPH 1.10 12/30/2017 ABSMONO 0.28 12/30/2017 EODINP 0.2 12/30/2017 ABSEOSIN <0.03 12/30/2017 BASOP 0.2 12/30/2017 ABSBASO <0.03 12/30/2017 Lab Results Component Value Date PLT 66 12/30/2017 HB 6.8 12/30/2017 HCT 20.6 12/30/2017 ALB 1.9 12/27/2017 CA 7.5 12/30/2017 TBILI 0.8 12/27/2017 ALKPHOS 141 12/27/2017 AST 32 12/27/2017 GLUC 87 12/30/2017 BUN 34 12/30/2017 NA 135 12/30/2017 K 3.9 12/30/2017 CHLOR 101 12/30/2017 CO2 23 12/30/2017 ANION 11 12/30/2017 ALT 22 12/27/2017 WSR (mm/hr) Date Value 12/25/2017 33 CRP (mg/dL) Date Value 12/25/2017 1.6 IgG (mg/dL) Date Value 12/26/2017 2,890 MICROBIOLOGY: 12/25 Blood culture x2 - negative Urine culture - negative Staph aureus nasal - negative HIV - negative Hepatitis panel - negative Bone marrow biopsy (full results in patient record on nursing floor): Normocellular marrow with mild plasmacytosis. Iron-absent Peripheral blood-macrocytic anemia and thrombocytopenia. Flow cytometry study from [facility] shows no evidence for abnormal myeloid maturation or an increased blast population. There is no evidence for a lymphoproliferative disorder or plasma cell neoplasm. Cytogenetic studies are pending at this time. ? Kidney biopsy (full report in his patient record on nursing floor): -Glomeruli showing focal segmental mesangiolysis (3 of 28 glomeruli), vague nodularity (2 of 28 glomeruli) and a single cellular crescent (1 of 28 glomeruli). -Mild tubular injury. -Moderate interstitial fibrosis and tubular atrophy. -strong granular IgM and C3 staining on immunofluorescence, with weak granular staining for C1q and kappa and lambda light chains. -Electron microscopy with occasional, poorly definied electron- dense areas in mesangium. IMAGING: CXR 12/27 IMPRESSION: Lines, Tubes, and Devices: ?Right IJ line mid SVC. Stable pacemaker. Lungs and Pleura: ?Bilateral effusions and overlying opacity similar to prior. No pneumothorax. Cardiomediastinal silhouette: ?Stable cardiac silhouette. CT ABD/PELV WO IVCON 12/27 IMPRESSION: LARGE LEFT RECTUS SHEATH HEMATOMA, STABLE OR SLIGHTLY INCREASED IN SIZE SINCE 12/25/2017. 3.3 CM ROUND LOW-ATTENUATION LESION ADJACENT TO THE CELIAC AXIS WHICH MAY BE AN ENLARGED LYMPH NODE. CHOLELITHIASIS WITHOUT EVIDENCE CHOLECYSTITIS. HEPATIC STEATOSIS. ECHO TTE 12/25 CONCLUSIONS: - Technically difficult exam due to suboptimal positioning. - Exam indication: Initial evaluation of Heart Failure - The left ventricle is moderately dilated. There is moderate concentric left ventricular hypertrophy. Left ventricular systolic function is normal. EF = 66 ? 5% (2D biplane) - The right ventricle is normal in size. Right ventricular systolic function is normal. - The left atrial cavity is severely dilated. - The right atrial cavity is dilated. - There is moderate (2+) mitral valve regurgitation. Thickened mitral valve leaflets. - There is moderate (2+ - 3+) tricuspid valve regurgitation. 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 There is moderately severe (3+) aortic valve regurgitation. The peak gradient is 39 mmHg, the mean gradient is 17 mmHg and the dimensionless valve index is 0.53. There is both valvular and paravalvular AI. There is flow reversal in the descending aorta. - Estimated right ventricular systolic pressure is?likely underestimated due to a weak or incomplete tricuspid regurgitation signal and is, at least, 70 mmHg consistent with moderately severe pulmonary hypertension. Estimated right atrial pressure is 15 mmHg. - The patient has not had a prior CC echocardiographic exam for comparison. DATA: Diagnostic Tests Reviewed for Today's Visit: Most recent labs and imaging results. Impression/Recommendations Mr. 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 ID has been consulted to help rule out occult infection. Recs: Obtain Bartonella serology Obtain Syphilis serology Do not recommend CHANDRAKANT for now, IE not likely Will reach out to Pathology team tomorrow AM, hoping to review slides This note is not finalized until signed by staff, Dr. Ruiz. Thank you very much for inviting us to participate in the care of this patient. SIGNATURE: Todd Montana MD PATIENT NAME: Frank Rivera DATE: December 30, 2017 TIME: 2:45 PM PAGER/CONTACT #: [phone] Chart reviewed, patient examined, and hernandez elements of history and physical examination of the patient confirmed. I reviewed the resident/fellow's note, examined the patient, and agree with the documented findings and plan of care. In a very large series of patients with infective endocarditis undergoing renal biopsy, 53% tested for serum complement had reduced C3. Twenty-eight percent had positive ANCA serologies. On path, most had crescentic GN, but many also had diffuse proliferative GN. There were no cases with membranoproliferative GN with or without cryoglobulinemic features or cases of thrombotic microangiopathy. The possibility of Bartonella infection has been raised. This is easy to check with PCR and serology. No antibiotics for now. Gee Ruiz MD Pager [phone] December 30, 2017 5:56 PM ALLIED HEALTH Observed: 12/30/2017 Status: COMPLETED Source: [place] 10:00 AM [facility] REPOSITORY HNO ID: [id number] Author: Carleen (Dieudonne) DIEUDONNE Keating Service: Healing Service Author Type: Registered Nurse Type: Allied Health Filed: 12/30/2017 12:58 PM Note Text: HEALING SERVICES THERAPY NOTE SERVICE DATE: 12/30/2017 SERVICE TIME: 1000 INTERVENTIONAL FOCUS: Anxiety Visit With: Patient Urgency of Visit: Routine Type of Visit: Introductory Visit Patient introduced to Healing Services available to them. Provided supportive community for pt who is alone. Created an environment of peace and calm using slow, soothing speech and a quiet, gentle, accepting presence to promote pt's healing. He shared the reasons for his admission and talked about his stay. All questions answered and materials left at bedside. Re-visit from Healing Services Team: Yes. If requested. SIGNATURE: Carleen Keating RN PATIENT NAME: Frank Rivera DATE: December 30, 2017 TIME: 12:57 PM PAGER/CONTACT #: [phone] CONSULT PROG Observed: 12/30/2017 Status: COMPLETED Source: [place] 9:14 AM [facility] REPOSITORY HNO ID: [id number] Author: Sixto Quick Service: Nephrology Author Type: Physician Type: Consult Progress Note Filed: 12/30/2017 5:34 PM Note Text: CONSULT PROGRESS NOTE NEPHROLOGY SERVICE SERVICE DATE: 12/30/2017 SERVICE TIME: 9:14 AM Subjective INTERVAL HISTORY: Transferred to [facility] yesterday No acute events overnight C/O fatigue, leg swelling stable Has bleeding from boil on buttocks Seen on hemodialysis MEDICATIONS: Current hospital medications: aspirin, enteric coated 81 mg tab(s) 81 mg ORAL DAILY metoprolol tartrate (short acting) 12.5 mg tab(s) (LOPRESSOR) 12.5 mg ORAL BID senna-docusate 8.6-50 mg 1 tablet (SENNA-S) 1 tablet ORAL/FEEDING TUBE BID polyethylene glycol 3350 17 g packet (MIRALAX, GLYCOLAX) 17 g ORAL DAILY sodium bicarbonate 650 mg tab(s) 650 mg ORAL TID docusate sodium 100 mg cap(s) (COLACE) 100 mg ORAL BID sodium citrate 4% 3-6 mL catheter lock 3-6 mL INTRALUMINAL PRN tamsulosin ER 0.4 mg cap(s) (FLOMAX) 0.4 mg ORAL DAILY pantoprazole DR 40 mg tab(s) (PROTONIX) 40 mg ORAL BID levothyroxine 200 mcg tab(s) (SYNTHROID) 200 mcg ORAL BEFORE BREAKFAST DAILY atorvastatin 80 mg tab(s) (LIPITOR) 80 mg ORAL AT BEDTIME Objective PHYSICAL EXAM: BP 124/60 Pulse 82 Temp 37.8 ?C (100 ?F) Resp 20 Ht 193 cm (6' 4) Wt 114.8 kg (253 lb 1.6 oz) SpO2 95% BMI 30.81 kg/m? Intake/Output Summary (Last 24 hours) at 12/30/17 0914 Last data filed at 12/30/17 0800 Gross per 24 hour Intake 600 ml Output 1550 ml Net -950 ml Date 12/29/17 1500 - 12/30/17 0659 12/30/17 0700 - 12/31/17 0659 Shift 6881-9114 7857-9683 24 Hour Total 8767-5973 9428-4533 2402-4731 24 Hour Total I N T A K E PO 360 680 480 480 PO 360 680 480 480 IV 0 0 IVPB 0 0 NS 0.9% 0 0 Cipro IV 0 0 Morphine Volume 0 0 Fentanyl Volume 0 0 Regular Insulin IV 0 0 Furosemide IV 0 0 Flagyl IV 0 0 D50W IV Syringe 0 0 Ferric Gluconate IV 0 0 Blood Products 300 300 PRBC Intake (mL) 300 300 TPN/PPN 0 0 TPN 0 0 PPN 0 0 Lipids 0 0 Other 0 0 OR 0 0 ICU 0 0 PACU ([facility] Only) 0 0 Shift Total 360 0 680 780 780 O U T P U T Urine 50 50 Tube Output ( Indwelling Urinary Catheter 12/25/17 Assessment Herring) 50 50 # of BMs Number of BMs 1 x 1 x 1 x Dialysis 1500 1500 Dialysis Output (Ultrafiltration) 1500 1500 Shift Total 1550 1550 Weight (kg) 114.8 114.8 114.8 114.8 114.8 114.8 114.8 GEN: Obese adult male. No acute distress. Cooperative. Alert and oriented x3. Seen on hemodialysis HEENT: NC/AT. Moist mucous membranes. RIJ c/d/i, nontender. NECK: RIJ temporary dialysis catheter in place RESP: CTAB, no rales/wheezes/rhonchi. Normal respiratory effort CV: RRR, S1, S2 normal, no murmurs/rubs/gallops. ABD: Soft. Nondistended, Nontender. Bowel sounds present. EXTR: Warm and perfused. Bilateral peripheral edema to knee. NEURO: CN II-XII grossly intact. No focal deficit. SKIN: Skin color, texture, turgor normal. No rashes or lesions on exposed skin. +Blood on back side of gown. ACCESS: RIJ temporary dialysis catheter accessed DATA: Diagnostic tests reviewed for today's visit: Most recent labs and imaging results. Recent Labs 12/30/17 0541 12/29/17 1408 12/29/17 0416 12/27/17 2318 12/27/17200612/26/17 2156 12/26/17 1750 NA 135* -- 134* 137 -- -- 140 139 K 3.9 -- 3.9 4.3 -- -- 4.4 5.2* CHLOR 101 -- 103 110* -- -- 116* 112* CO2 23 -- 22 20* -- -- 15* 17* BUN 34* -- 44* 52* -- -- 60* 68* CREAT 4.63* -- 4.74* 4.50* -- -- 5.01* 5.43* GLUC 87 -- 99 81 -- -- 96 81 ANION 11 -- 9 7* -- -- 9 10 CA 7.5* -- 7.5* 7.6* -- -- 7.1* 7.9* P 3.8 4.4 4.1 4.4 4.5 < > 5.8* -- MG -- -- 1.7 -- 1.8 -- 1.8 -- < > = values in this interval not displayed. Recent Labs 12/30/17 0541 12/29/178 12/29/17227 WBC 4.87 4.62 4.58 HB 6.8* 7.4* 7.1* HCT 20.6* 22.3* 21.2* PLT 66* 64* 60* Recent Labs 12/30/17 0541 12/29/178 12/27/17231712/26/17215512/25/172153 INR -- -- -- -- 1.6* 1.6* APTT 36.5* 38.6* 36.5* < > -- 38.7* < > = values in this interval not displayed. Recent Labs 12/24/17 1720 COLOR Bridget* CLARITY Cloudy* UGLUC Negative UBILI Negative UKET Negative SPGR 1.013 UHB 3+* UPH 6.0 UPROT 100* NITRITES Negative LEUKEST 2+* UWBC >25* URBC >25* Recent Labs 12/30/17 0541 12/24/17 1632 MAX -- -- 422.0 TRANSFERSAT -- -- >89* HB 6.8* < > -- < > = values in this interval not displayed. Recent Labs 12/30/1754012/27/172317 CA 7.5* < > 7.6* P 3.8 < > 4.4 ALB -- -- 1.9* < > = values in this interval not displayed. Recent Labs 12/29/17 1632 12/29/17 140 BUNRAT 45 -- BUNPR -- 47* BUNPO 26* -- Recent Labs 12/25/17 171 HEPSABQ Negative Assessment/Plan 62 yo M w PMH of Afib on Eliquis s/p PPM/DCCV, s/p AVR, h/o CVA, iron def anemia, h/o gastric bypass, h/o GI bleed, hypothyroidism transferred for further evaluation of IRINA and hemolytic anemia. OSH GI eval without source, + hemolysis, multiple pRBC transfusions locally, IRINA with cr 4.1 on admission Renal Bx /28, without definitive diagnosis, by report. Also with Bone marrow bx. 1. IRINA-Anuric, likely infection-related GN based on review of OSH renal bx slides (focal crescentic GN with IgM/C3 deposits). C3 low, ANCA +, mild increase in MPO, FATOU-, DULCE-, Petar+, anti-ds DNA+, cryoglobulin 216. Blood cultures -ve, HIV/HepB/HepC -ve. Trans-thoracic echo without vegetation. CT abd with hematoma L rectus. On CRRT 12/27-12/28 due to worsening hypervolemia. Started IHD 12/29. 2. Hyperkalemia-resolved 3. NAGMA-on sodium bicarb 4. Normocytic anemia-likely 2/2 acute blood loss and chronic disease 5. Thrombocytopenia 6. Access: LIJ NTDC placed 12/27 -Hyponatremia. -. S/P AVR. -Recurrent GIB. -Acute blood loss anemia. -Thrombocytopenia. -Iron deficiency anemia. -Heyde's syndrome. -Rectus sheath hematoma. -Acquired hypothyroidism. -Atrial fibrillation. S/P DCCV and LAAL. -SSS. S/P PPM. -Essential HTN. -Vitamin B 12 deficiency. -Hypoalbuminemia. -S/P CVA with residual dysphagia and silent aspiration. -Obesity class I. S/P Min-en-Y bypass. -Lymphadenopathy. 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 -Please obtain rheumatoid factor -Strict I/Os -Daily renal function panel -Renally dose medications Will follow SIGNATURE: Dilcia Horner MD PATIENT NAME: Frank Rivera DATE: December 30, 2017 TIME: 9:14 AM PAGER: [phone] [facility] [facility] [place] [facility] STAFF PHYSICIAN NOTE OF PERSONAL INVOLVEMENT IN CARE I have reviewed the progress note obtained and documented by Dr. Horner and I personally participated in the hernandez components. I have discussed the case and management of the patient's care. I have revised and amended the note to reflect my examination, assessment and plan. 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 He was transferred here on 12/24/17 for further management. Patient was on CVVHD from 12/27/17 to 12/28/17. Transitioned to IHD on 12/29/17. Renal biopsy slides from outside hospital reviewed today with Dr. 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 No need for steroids. Need to get ID consult and PCR for Bartonella. Consider CHANDRAKANT. The patient may have infected pacer wires. The patient has hypervolemia. Will do daily hemodialysis for fluid removal. I saw the patient on hemodialysis this afternoon (orders entered in RADHA). Sixto Quick MD Staff Nephrology and Hypertension [facility] Beeper Number: [id number] Date of Service: 12/30/2017 Time of Service: 5:16 PM CBC AND DIFFERENTIAL Collected: 12/30/2017 Status: F Source: [facility]AN[facility] 5:41 AM [facility] REPOSITORY TYPE CODE TESTS RESULT OUT OF REFERENCE UNITS RANGE LAB WBC 3.70-11.00 k/uL WBC 4.87 LAB RBC 4.20-6.00 m/uL Low RBC 2.21 LAB HGB 13.0-17.0 g/dL Low Hemoglobin 6.8 LAB HCT 39.0-51.0 % Low Hematocrit 20.6 LAB MCV 80.0-100.0 fL MCV 93.2 LAB MCH 26.0-34.0 pG MCH 30.8 LAB MCHC 30.5-36.0 g/dL MCHC 33.0 LAB RDWCV 11.5-15.0 % RDW-CV High 17.9 LAB PLTCT 150-400 k/uL Low Platelet Count 66 Result Comment: No clot detected. LAB MPV 9.0-12.7 fL MPV 10.5 LAB ANEUT % Neut% 71.3 LAB AANEUT 1.45-7.50 k/uL Abs Neut 3.47 LAB ALYMP % Lymph% 22.6 LAB AALYMP 1.00-4.00 k/uL Abs Lymph 1.10 LAB AMONO % Pope% 5.7 LAB AAMONO <0.87 k/uL Abs Pope 0.28 LAB AEOS % Eosin% 0.2 LAB AAEOS <0.46 k/uL Abs Eosin <0.03 LAB ABASO % Baso% 0.2 LAB AABASO <0.11 k/uL Abs Baso <0.03 LAB AUNRBC 0 /100 WBC NRBCs 0.0 LAB ABNRBC <0.01 k/uL Absolute nRBC <0.01 LAB DTYP DTYPE Auto Diff Performed By: #### CBCDIF #### [facility] [address] [place], [place] [address] BASIC METABOLIC PANL Collected: 12/30/2017 Status: F Source: [facility] 5:41 AM [facility] REPOSITORY TYPE CODE TESTS RESULT OUT OF REFERENCE UNITS RANGE LAB GLU 74-99 mg/dL Glucose 87 Result Comment: The [place] Diabetes Association (ADA) provides guidance for cutoff values for fasting glucose and random glucose. The ADA defines fasting as no caloric intake for at least 8 hours. Fas ting plasma glucose results between 100 to 125 mg/dL indicate increased risk for diabetes (prediabetes). Fasting plasma glucose results greater than or equal to 126 mg/dL meet the criteria for diagnosis of diabetes. In the absence of unequivocal hyperglycemia, results should be confirmed by repeat testing. In a patient with classic symptoms of hyperglycemia or hyperglycemic crisis, random plasma glucose results greater than or equal to 200 mg/dL meet the criteria for diagnosis of diabetes. Reference: Standards of Medical Care in Diabetes 2016, [place] Diabetes Association. Diabetes Care. 2016.39(Suppl 1). LAB BUN 9-24 mg/dL BUN High 34 LAB CRET 0.73-1.22 mg/dL Creatinine High 4.63 LAB NA 136-144 mmol/L Low Sodium 135 LAB K 3.7-5.1 mmol/L Potassium 3.9 LAB CL 97-105 mmol/L Chloride 101 LAB CO2 22-30 mmol/L CO2 23 LAB AGAP 9-18 mmol/L Anion Gap 11 LAB CA 8.5-10.2 mg/dL Low Calcium, Total 7.5 LAB GFRAA eGFR- Amer. 16 LAB GFRNAA . eGFR-All Other Races 13 Result Comment: eGFR (Estimated GFR) Units of measure: mL/min/1.73 meters squared eGFR is derived from the reexpressed MDRD Study equation using the following parameters: serum creatinine, age, gender and race. The creatinine assay has been calibrated to be traceable to IDMS. An eGFR <60 mL/min/1.73m2 for >3 months is consistent with chronic kidney disease. Refer to KDOQI guidelines for clinical interpretation. In patients with unstable renal function, e.g. those with acute kidney injury, the eGFR may not accurately reflect actual GFR. Performed By: #### BMP, PHOS, PTT #### [facility] [employer] [address] [place], [place] [id number] PHOSPHORUS Collected: 12/30/2017 Status: F Source: PLANO 5:[address] [facility] REPOSITORY TYPE CODE TESTS RESULT OUT OF REFERENCE UNITS RANGE LAB PHOS 2.7-4.8 mg/dL Phosphorus 3.8 Performed By: #### BMP, PHOS, PTT #### [facility] [employer] [address] [place] [id number] APTT Collected: 12/30/2017 Status: F Source: [facility]ANO 5:[address] [facility] REPOSITORY TYPE CODE TESTS RESULT OUT OF RANGE REFERENCE UNITS LAB APTT 23.0-32.4 sec High APTT 36.5 Result Comment: Unfractionated Heparin Therapeutic Ranges: Standard Heparin Nomogram: 53 to 78 seconds (anti-Xa level of 0.3 to 0.7 U/ml) Low Dose/ACS Nomogram: 49 to 67 seconds (anti-Xa level of 0.2 to 0.5 U/ml) Stroke Treatment Nomogram: 49 to 67 seconds (anti-Xa level of 0.2 to 0.5 U/ml) Note: The APTT therapeutic range has been determined for the current lot of laboratory APTT reagent in use throughout the [facility]. Performed By: #### BMP, PHOS, PTT #### [facility] [employer] [address] [place] [address] BARTONELLA PCR Collected: 12/30/2017 Status: F Source: PLANO 5:41 AM [facility] REPOSITORY TYPE CODE TESTS RESULT OUT OF RANGE REFERENCE UNITS LAB BARSRC Bartonella Whole Blood Source LAB REBEKA Abnormal Bartonella PCR DETECTED Alert Rslt Result Comment: (NOTE) INTERPRETIVE INFORMATION: Bartonella Species Detection by PCR Test developed and characteristics determined by [employer]. See Compliance Statement B: [employer]/ Performed by [employer], [address] [place] [id number] [email or web address], Bipin Lockett MD, Lab. Director Performed By: #### BARPCR #### [employer] [address] [place] [phone] [facility] [address] [place] [address] NURSING PROG Observed: 12/29/2017 Status: COMPLETED Source: PLANO 10:34 PM [facility] REPOSITORY HNO ID: [id number] Author: Rosalva Perez) DIEUDONNE Wise Service: (none) Author Type: Registered Nurse Type: Nursing Progress Note Filed: 12/29/2017 10:35 PM Note Text: Nursing Progress Note Patient Name: Frank Rivera Patient Location: [place] [address] Transfer Note: Patient transferred into room/unit [facility] in stable condition. Actions taken: No futher actions taken at this time. Will continue to monitor and check with patient. This note was completed by: Rosalva Wise RN PLAN OF CARE Observed: 12/29/2017 Status: COMPLETED Source: PLANO 6:16 PM [facility] REPOSITORY HNO ID: [id number] Author: Alyce Rodriguez Service: Critical Care Author Type: Resident Type: Plan of Care Filed: 12/29/2017 6:56 PM Note Text: Patient is being transferred out of the MICU to [facility]. Sign out given to Adrien gibson today. GIMTO informed of the transfer Alyce Rodriguez MD PGY-3, Internal Medicine BUN, POST DIALYSIS Collected: 12/29/2017 Status: F Source: PLANO 4:32 PM [facility] REPOSITORY TYPE CODE TESTS RESULT OUT OF REFERENCE UNITS RANGE LAB BUNPO 9-24 mg/dL BUN, High Post Dialysis 26 LAB BUNRAT % Urea Reduction Ratio 45 Performed By: #### BUNPO1 #### [facility] [address] [place], [place] [address] ALLIED HEALTH Observed: 12/29/2017 Status: COMPLETED Source: [facility]ANO 3:00 PM [facility] REPOSITORY HNO ID: [id number] Author: Laura Jacobs Service: Music Therapy Author Type: Music Therapist Type: Allied Health Filed: 12/29/2017 4:11 PM Note Text: MUSIC THERAPY NOTE SERVICE DATE: 12/29/2017 SERVICE TIME: 1500 Referral received and appreciated. The pt was asleep and receiving dialysis upon arrival. The music therapist introduced self and services, and spoke with the pt's parents Jevon and Michael outside the pt's room. The pt's parents agreed not to wake the pt today. The music therapist will follow-up as able. SIGNATURE: SUNSHINE Bills[employer] PATIENT NAME: Frank Rivera DATE: December 29, 2017 TIME: 4:10 PM PAGER/CONTACT #: [phone] THERAPY NT Observed: 12/29/2017 Status: COMPLETED Source: [facility]AN[facility] 2:22 PM [facility] REPOSITORY HNO ID: [id number] Author: Vasyl (Pt) DYLON Vivas Service: Physical Therapy Author Type: Physical Therapist Type: Therapy (PT/OT/Speech/Resp) Filed: 12/29/2017 2:27 PM Note Text: Physical Therapy Evaluation SERVICE DATE: 12/29/2017 SERVICE TIME: 0900 to 0940 ROOM: [place] [address] Recommended Discharge Disposition: Home PT Recommended Discharge Disposition Comments: Pt may progress to Home without PT needs Anticipated Discharge Needs: Physical Assist at Home Physical Assist at Home for: Transportation;Shopping;Laundry;Cleaning Recommended Discharge Equipment: To Be Determined PT 6 Clicks Score: 21 Precautions/Activity Restrictions: Lines/Tubes/Drains;Abdominal ASSESSMENT : Patient Disposition at Start of Session: Supine in Bed Patient Disposition at End of Session: OOB in Chair Tolerated Full Session ; Pt required SBA for all bedside functional mobility, but pt fatigued after transfer to chair and respectfully requested to hold ambulation at this time. Vitals monitored and Stable throughout session. Pt will benefit from continued PT to address all deficits described below. Physical Therapy Problem List: Education Deficit;Impaired Self Care;Functional Mobility Impairment Patient /Caregiver Goals: Go Home;Care For Self Goals for Plan of Care: Transfer supine to/from sit with: Independent Transfer sit to/from stand with: Independent Ambulate with: Independent Distance: >300' Device: No Device Ambulate up and down steps with: Independent Number of steps: 2 Device: (No AD) PLAN: Treatment Frequency (times per week): 3 Current admission Treatment Interventions: Education;Self Care / Home Management;Energy Conservation Training;Strengthening;Functional Mobility Training;Balance Training;Neuromuscular Re-education;Pain Management Plan of Care developed with: Patient TREATMENT INTERVENTIONS: Therapy Diagnosis: Reduced mobility-other Interventions Provided: Evaluation;Therapeutic Activity (12293) $ Evaluation-Moderate (11973) Billed Units: 1 unit Therapeutic Activity (38698) Treatment Minutes: 25 2 units Skilled Intervention(s): Instruction in bed mobility and log-rolling technique for supine<>sit transfer with VC for safety with current medical equipment provided by PT. Education provided to utilize strength and maximize muscular recruitment for all functional mobility to improve overall functional capacity. Education provided for proper weight shift for scooting and 3x sit<>stand transfers (SBA provided by PT) to improve efficiency/effectiveness and to increase functional independence. 1x bed<>chair transfer with SBA and verval cues for posture, stepping, breathing control, and safe hand placement. Standing and seated rest breaks provided as needed. Pt also instructed in inspection and set-up of WW/cane if needed in the future. Pt educated on use of RPE to self-monitor fatigue level. Pt educated on abdominal precautions prior to mobility training. Handout provided with explanation of HEP and PT contact info. Exercises (see docflowsheet) performed as warm-up prior to mobility training. Verbal cues/Tactile cues provided for improved form/technique. Total Timed Code Treatment Minutes: 25 Total Treatment Time (minutes): 40 FUNCTIONAL G CODE: PT 6 Clicks Score: 21 (12/29/17899) Mobility: Walking and Moving Around Current Status (G8978): CJ (12/29/17899) Mobility: Walking and Moving Around Goal Status (G8979): CI (12/29/17899) Based on clinical assessment and the score on the 6 Clicks Functional Assessment Tool, the G code and corresponding severity modifiers are documented above. SUBJECTIVE: Current Hospital Course: Chart reviewed; Per EPIC: 62 yo M with above mentioned past medical history most significant for atrial fibrillation, CAD s/p CABG, Heyde's syndrome, Aortic stenosis s/p bioprosthetic AVR, SSS s/p PM Patient Report: Pt pleasant, cooperative, and willing to participate in PT session. No c/o pain at this time. 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) OBJECTIVE: Mini Cog Score: 5 (12/28/17834) CURRENT FUNCTIONAL STATUS: Current Functional Mobility Assist Level Additional Information Rolling Independent Supine to Sit Stand By Assistance Sit to Supine Stand By Assistance Scooting Modified Independent Sit to Stand Stand By Assistance Stand to Sit Stand By Assistance Bed to Chair Stand By Assistance Bed To Chair Transfer Type: (5' stepping) Bed To Chair Transfer Equipment: (No AD) Toilet/Commode Gait Stairs Curb Step Car Transfer Balance: Dynamic Standing;Static Standing;Dynamic Sitting;Static Sitting Static Sitting Balance: Stand By Assistance Dynamic Sitting Balance: Stand By Assistance Static Standing Balance: Stand By Assistance Dynamic Standing Balance: Contact Guard Assistance Please see discipline specific clinical documentation flowsheet for complete details for this therapy evaluation/treatment. SIGNATURE: Vasyl Vivas, PT PATIENT NAME: Frank Rivera DATE: December 29, 2017 TIME: 2:23 PM CBC AND DIFFERENTIAL Collected: 12/29/2017 Status: F Source: PLANO 2:08 PM [facility] REPOSITORY TYPE CODE TESTS RESULT OUT OF REFERENCE UNITS RANGE LAB WBC 3.70-11.00 k/uL WBC 4.62 LAB RBC 4.20-6.00 m/uL Low RBC 2.37 LAB HGB 13.0-17.0 g/dL Low Hemoglobin 7.4 LAB HCT 39.0-51.0 % Low Hematocrit 22.3 LAB MCV 80.0-100.0 fL MCV 94.1 LAB MCH 26.0-34.0 pG MCH 31.2 LAB MCHC 30.5-36.0 g/dL MCHC 33.2 LAB RDWCV 11.5-15.0 % RDW-CV High 17.9 LAB PLTCT 150-400 k/uL Low Platelet Count 64 Result Comment: No clot detected. LAB MPV 9.0-12.7 fL MPV 10.0 LAB ANEUT % Neut% 72.3 LAB AANEUT 1.45-7.50 k/uL Abs Neut 3.32 LAB ALYMP % Lymph% 22.1 LAB AALYMP 1.00-4.00 k/uL Abs Lymph 1.02 LAB AMONO % Pope% 5.2 LAB AAMONO <0.87 k/uL Abs Pope 0.24 LAB AEOS % Eosin% 0.2 LAB AAEOS <0.46 k/uL Abs Eosin <0.03 LAB ABASO % Baso% 0.2 LAB AABASO <0.11 k/uL Abs Baso <0.03 LAB AUNRBC 0 /100 WBC NRBCs 0.0 LAB ABNRBC <0.01 k/uL Absolute nRBC <0.01 LAB DTYP DTYPE Auto Diff Performed By: #### CBCDIF, PHOS, BUNPR #### [facility] [employer] [address] [place] [id number] PHOSPHORUS Collected: 12/29/2017 Status: F Source: PLANO 2:08 PM [facility] REPOSITORY TYPE CODE TESTS RESULT OUT OF REFERENCE UNITS RANGE LAB PHOS 2.7-4.8 mg/dL Phosphorus 4.4 Performed By: #### CBCDIF, PHOS, BUNPR #### [facility] [employer] [address] [place] [address] BUN, PRE DIALYSIS Collected: 12/29/2017 Status: F Source: PLANO 2:08 PM [facility] REPOSITORY TYPE CODE TESTS RESULT OUT OF REFERENCE UNITS RANGE LAB BUNPR 9-24 mg/dL High BUN, Pre 47 Dialysis Performed By: #### CBCDIF, PHOS, BUNPR #### [facility] [address] [place], [place] [address] HISTORY PHYSICAL Observed: 12/29/2017 Status: COMPLETED Source: PLANO 1:19 PM [facility] REPOSITORY HNO ID: [id number] Author: Riley Baumann Service: General Internal Medicine Author Type: Physician Type: HANDP Filed: 12/30/2017 5:29 PM Note Text: INTERNAL MEDICINE HANDP EXAMINATION Service: Adrien Schrader During the day, please page [phone] (first call), [phone] (second call). After hours, please page [phone]. SERVICE DATE: 12/29/2017 SERVICE TIME: 2:30PM PRIMARY CARE PHYSICIAN: No primary care provider on file. Subjective CHIEF COMPLAINT: Fatigue, Shortness of Breath HISTORY OF PRESENT ILLNESS: Mr. Frank Rivera is a 62 year old male with atrial fibrillation and SSS s/p PPM, HTN, hypothyroidism, aortic stenosis s/p AVR and RUDY, history of Min-en-Y bypass c/b recurrent GIB, ADRIANNE, B12 deficiency, who presents to [facility] on 12/24/17 with fatigue and shortness of breath who was transferred from OSH with IRINA and renal biopsy concerning for C3 nephropathy. He has a past medical history significant for: ? Atrial fibrillation and sick sinus syndrome, s/p PPM (04/2017), on apixaban 5mg BID (CHADSVASC 4), metoprolol 12.5mg BID ? HTN ? Hypothyroidism - on levothyroxine 200mcg ? Hx of CVA with residual dysphagia and concerns for silent aspiration ? History of Min-en-Y bypass (1995), c/b chronic iron deficiency anemia, vitamin B12 deficiency, and UGIB (most recently 2015). ? Aortic stenosis s/p bioprosthetic AVR and RUDY ligation (05/07/2017) He was admitted after feeling fatigued and more short of breath, had labs drawn by PCP. He presented to [facility] on 12/14/17 after being found to have Hgb 7.5, BUN 70 and Cr 4.12 (SCr 0.99 in 10/2017), stool guiac +. Pt underwent work up for GI bleed via EGD on 12/18/17 and Colonoscopy 12/21/17 which was unremarkable. Tagged RBC scan also negative. He received a total of 4U pRBC, 2U Plts there. Renal U/S on 12/15/17 showed incidental note of gallstones and mild pericholecystic fluid. The gallbladder is partially contracted, precluding accurate evaluation of mural thickness. Acute cholecystitis is not excluded. Fatty infiltration of the liver. 12/17/17 videoscopic swallow showed penetration and silent aspiration with ingestion of thin liquids. Pt subsequently underwent right renal biopsy on 12/18 due to unexplained rise in Cr. Initial biopsy results concerning for C3 nephropathy (C3 on 12/23/17 was 64, C4 was 17) and thus pt was transferred to [facility] for further work up. We do not have the renal biopsy pathology slides from OSH at the time of this note. ? Of note, in the context of anemia with worsening renal function, there were concerns for multiple myeloma thus pt underwent bone marrow biopsy, which was negative for myeloma. Initial RNF Course: ? Initial labs showed C4 17, C3 47 (L), +p-ANCA, -c-ANCA, MPO 0.3 (negative), Proteinase 3 < 0.2 (negative), Haptoglobin < 10, LDH 408, Free kappa 464 (H), Free lambda 343 (H), +Petar, UA 3+ Hgb, 100 protein, 2+ LE, >25 WBC. ? Clinically, concerns for volume overload on admission, significant pitting edema in lower extremities, evidence of pulmonary edema on CXR, requiring 3L to maintain saturations ? Nephrology consulted on 12/25/17, started on prednisone 60mg qDay for concerns of a glomerular process, which was held starting 12/[address] abd/pel concerning for lymphadenopathy. Concerns for C3 nephropathy on OSH reports prompted request to obtain renal biopsy pathology slides from OSH. Diuresis attempted on 12/26/17 for hyperkalemia with furosemide 80mg x 1. ? 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 FELICIA+ for microscopic IgG and C3d. Blood bank noted that eluate is negative, therefore not consistent with autoimmune hemolytic anemia Also recommended IV ferrlicet 125mg x 5 doses for ADRAINNE (which was discontinued given recurrent iron obtained from pRBC transfusions). On 12/26/17, peripheral smear notable for few schistocytes, yojana cells and rare spherocytes. Given concerns for CT A/P and LE dopplers showing lymphadenopathy (2.6cm celiac lymphadenopathy, multiple enlarged LNs in lower extremities), desired rule out lymphoproliferative disorder with lymph node excisional biopsy. ? General Surgery was consulted on 12/25/17 for spontaneous rectus sheath hematoma, Hgb dropped 8.4 to 7.2 to 6.8 in 10/6 AM. ? MICU was consulted on 12/26/17 for acute hypoxemic respiratory failure, was transferred to MICU for dialysis given oliguria and acute hypoxemic respiratory failure secondary to volume overload. MICU Course: 12/26/17: Admitted to MICU, started on sevelamer 800mg qAC for hyperphosphatemia, TDC on hold until coagulopathy reversed 12/27/17: Dialysis catheter line placed, CVVHD initiated 12/28/17: Completed CVVHD, switched to IHD, General Surgery consented patient for surgical excisional lymph node biopsy 12/29/17: Transferred to [facility]. Gen Surg deferred lymph node biopsy until BMBx and renal bx slides are evaluated here On interview 12/29 afternoon, patient doing well. Denies complaints. Lower extremity swelling improved. Hgb stable in low 7's. Plts stable in 60's. BPs 110's-130's/70's. HRs 60s-low 100s. Mid-90% on 2L NC PAST MEDICAL HISTORY Diagnosis Date - Aortic stenosis - Atrial fibrillation (HCC) - CAD (coronary artery disease) of bypass graft - CVA, old, dysphagia - Heyd's syndrome (HCC) - History of Min-en-Y gastric bypass - HTN (hypertension) - Hx of sick sinus syndrome PAST SURGICAL HISTORY Procedure Laterality Date - CARPAL TUNNEL - DIALYSIS CATHETER PROCEDURE (W NOTE) 12/27/2017 - GASTRIC BYPASS, MIN-EN-Y 1996 - PERCUT AORTIC VALVE REPLACE 05/07/2017 FAMILY HISTORY Problem Relation Age of Onset - Ischemic Heart Disease Mother - other (hypothyroidism) Mother - Ischemic Heart Disease Father - Thyroid Cancer Sister Social History Substance Use Topics - Smoking status: Current Every Day Smoker Types: Cigars, Cigarettes - Smokeless tobacco: Not on file Comment: States he quit cigarretes years ago 25 yr ppd previously, last had cigar in october - Alcohol use No MEDICATIONS: Prescriptions Prior to Admission: atorvastatin (LIPITOR) 80 mg tablet Take 80 mg by mouth once daily. Disp: Rfl: Unknown at Unknown time hydrALAZINE (APRESOLINE) 25 mg tablet Take 25 mg by mouth every 8 hours. Disp: Rfl: Unknown at Unknown time ascorbic acid-ascorbate sodium 500 mg chew Take 500 mg by mouth once daily. Disp: Rfl: Unknown at Unknown time levothyroxine (LEVOXYL) 200 mcg tablet Take 200 mcg by mouth daily before breakfast. Disp: Rfl: Unknown at Unknown time magnesium oxide 200 mg magnesium tab Take 2 tablets by mouth once daily. Disp: Rfl: Unknown at Unknown time metoprolol tartrate, short acting, (LOPRESSOR) 25 mg tablet Take 12.5 mg by mouth twice daily. Disp: Rfl: Unknown at Unknown time ferrous sulfate 325 mg (65 mg iron) tablet Take 325 mg by mouth daily with breakfast. Disp: Rfl: Unknown at Unknown time predniSONE (DELTASONE) 20 mg tablet Take 60 mg by mouth once daily. Disp: Rfl: 12/24/2017 at Unknown time pantoprazole DR (PROTONIX) 20 mg tablet Take 40 mg by mouth twice daily. Disp: Rfl: Unknown at Unknown time cyanocobalamin (VITAMIN B-12) 100 mcg tab Take 500 mcg by mouth once daily. Disp: Rfl: Unknown at Unknown time apixaban (ELIQUIS) 5 mg tab(s) Take 5 mg by mouth twice daily. Disp: Rfl: Unknown at Unknown time ALLERGIES Allergen Reactions - Penicillin Hives COMPLETE REVIEW OF SYSTEMS: PAIN ASSESSMENT: Negative for pain, history of chronic pain, or current treatment for a chronic pain condition. GENERAL: Fatigue HEENT: Negative for frequent or significant headaches, No changes in hearing or vision, no nose bleeds or other nasal problems RESPIRATORY: Shortness of breath, See HPI CARDIOVASCULAR: See HPI GI: No nausea, vomiting, or diarrhea : On dialysis MUSCULOSKELETAL: Negative for joint pain or swelling, back pain or muscle pain SKIN: Negative for lesions, rash, and itching PSYCH: Negative for sleep disturbance, mood disorder and recent psychosocial stressors HEMATOLOGY/LYMPHOLOGY: See HPI ENDOCRINE: Negative for cold or heat intolerance, polyuria, polydipsia and goiter NEURO: No history of headaches, syncope, paralysis, seizures or tremors Objective PHYSICAL EXAM: Patient Vitals for the past 24 hrs: BP Temp Temp src Pulse Resp SpO2 Weight 12/29/17 1700 116/70 - - 107 23 94 % - 12/29/17 1600 138/82 36.8 ?C (98.3 ?F) Axillary 105 16 96 % - 12/29/17 1500 138/78 - - 101 22 97 % - 12/29/17 1400 130/70 - - 99 27 97 % - 12/29/17 1300 120/71 - - 103 22 96 % - 12/29/17 1200 112/62 - - 68 19 96 % - 12/29/17 1100 113/64 - - 66 20 95 % - 12/29/17 1000 114/58 - - 104 21 95 % - 12/29/17 0900 140/70 - - 81 21 94 % - 12/29/17 0800 127/73 - - 105 18 96 % - 12/29/17 0700 123/65 - - 79 16 95 % - 12/29/17 0600 128/72 - - 109 21 97 % - 12/29/17 0500 123/62 - - 111 18 94 % 114.9 kg (253 lb 4.9 oz) 12/29/17 0400 131/65 37.4 ?C (99.3 ?F) Oral 82 18 95 % - 12/29/17 0300 123/61 - - 84 18 94 % - 12/29/17 0200 125/70 - - 113 20 95 % - 12/29/17 0100 141/68 - - 92 19 93 % - 12/29/17 0000 137/78 37.6 ?C (99.6 ?F) Oral 110 18 96 % - 12/28/17 2300 156/76 - - 85 19 93 % - 12/28/17 2200 141/75 - - 80 18 96 % - 12/28/17 2100 143/83 - - 117 23 93 % - 12/28/17 2000 140/76 37.6 ?C (99.7 ?F) Oral 90 24 91 % - 12/28/17 1900 124/72 - - 112 24 95 % - 12/28/17 1800 128/65 - - 90 21 92 % - Body mass index is 30.85 kg/m?. GENERAL: Alert, no distress, cooperative, on 2L NC. SKIN: Skin color, texture, turgor normal. No rashes or lesions. LUNGS: Bibasilar crackles CARDIAC: Murmur 1:2/6, systolic, right upper sternal border ABDOMEN: Soft, non-distended, LLQ tenderness, +BS EXTREMETIES: No ulcers, 3+ pitting edema to knees NEURO: Alert, oriented X 3, Gait normal. Non-focal. Reflexes normal and symmetric. Sensation grossly intact., Cranial nerves II-XII intact PULSES: 2+ radial, 2+ carotid DATA: Diagnostic tests reviewed for today's visit: Most recent labs and imaging results. 12/27/17 CT Abd/Pel without IV Contrast IMPRESSION: LARGE LEFT RECTUS SHEATH HEMATOMA, STABLE OR SLIGHTLY INCREASED IN SIZE SINCE 12/25/2017. 3.3 CM ROUND LOW-ATTENUATION LESION ADJACENT TO THE CELIAC AXIS WHICH MAY BE AN ENLARGED LYMPH NODE. CHOLELITHIASIS WITHOUT EVIDENCE CHOLECYSTITIS. HEPATIC STEATOSIS. 12/25/17 Leg DVT B/L Negative for acute DVT. Multiple enlarged lymph nodes noted in the right groin with the largest measuring aproximately: 1.4 x 1.5 x 0.9 cm. Multiple enlarged lymph nodes noted in the left (?) groin with the largest measuring aproximately: 2.3 x 1.8 x 0.7 cm. OSH Pathology Reports: Bone marrow biopsy (full results in patient record on nursing floor): Normocellular marrow with mild plasmacytosis. Iron-absent Peripheral blood-macrocytic anemia and thrombocytopenia. Flow cytometry study from [facility] shows no evidence for abnormal myeloid maturation or an increased blast population. There is no evidence for a lymphoproliferative disorder or plasma cell neoplasm. Cytogenetic studies are pending at this time. ? Kidney biopsy (full report in his patient record on nursing floor): -Glomeruli showing focal segmental mesangiolysis (3 of 28 glomeruli), vague nodularity (2 of 28 glomeruli) and a single cellular crescent (1 of 28 glomeruli). -Mild tubular injury. -Moderate interstitial fibrosis and tubular atrophy. -strong granular IgM and C3 staining on immunofluorescence, with weak granular staining for C1q and kappa and lambda light chains. -Electron microscopy with occasional, poorly defined electron- dense areas in mesangium. Assessment/Plan Mr. 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 MICU transfer to initiate dialysis secondary to volume overload. Patient is now non-oliguric IRINA-D. Unclear etiology of IRINA, will be of great benefit to obtain renal biopsy from OSH for review. 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 Concerns for lymphadenopathy --> Will discuss with General Surgery re: LN excisional biopsy. Active Hospital Problems Diagnosis - Hyperkalemia - Rectus sheath hematoma - Anemia - Thrombocytopenia (HCC) - Lymphadenopathy - Atrial fibrillation (HCC) - CVA, old, dysphagia - CAD (coronary artery disease) - HTN (hypertension) - Heyd's syndrome (HCC) - Obesity, Class I, BMI 30-34.9 - Malnutrition of mild degree (HCC) - IRINA (acute kidney injury) (HCC) #Pancytopenia #Hemolytic anemia Presented with fatigue, shortness of breath History of UGIB secondary to Min-en-Y (most recently 2015), OSH EGD/C-scope/tagged RBC scan showed no evidence of bleed Requiring pRBC transfusion x 3 during this hospitalization Concerns for hemolytic process, not Petar driven--peripheral smear showed evidence of scant schistocytes, yojana cells, rare spherocytes, thrombocytopenia. ?Elevated Igs, will try to continue to workup lymphoproliferative process as potential etiology Leukopenia improving, Hgb and plts stabilizing, last pRBC - Transfuse Hgb < 7, Plts < 50 - F/u Hematology recs -- if no plans for LN excisional biopsy, ?restart prednisone 60mg #Atrial fibrillation S/p PPM for sick sinus syndrome Metoprolol 12.5mg BID home dose held for acute anemia, which has now stabilized HR in 80s-low 100s, HDS -Hold apixaban for rectus sheath hematoma, will trial with heparin gtt, if tolerates, switch back to apixaban -Restart metoprolol 12.5mg BID -Tele #Rectus sheath hematoma Last imaging 12/27/17 showed 20 x 8.7 x 6.7 cm left rectus sheath hematoma, unclear etiology -Daily CBC -Will trial with heparin gtt, if tolerates, switch back to apixaban #Lymphadenopathy 3.3 x 2.9cm ?LN in celiac region, concern by Hematology for possible lymphoproliferative disorder -Discuss with Gen Surg re: excisional lymph node biopsy after reviewing OSH renal biopsy #IRINA-D, non-oliguric P/w fatigue, SOB, SCr 4.1 (b/l 1.0 in 10/2017) C/b volume overload, NAGMA, hyperphosphatemia Unclear etiology, per OSH renal biopsy report, C3 and IgM mesangium deposits, one of 28 glomeruli had crescent (?TMA), low C3, p-ANCA+ but MPO unremarkable NTDC placed 12/27/17 for volume overload, improving -Continue IHD -f/u renal biopsy slides from OSH -Continue sodium bicarbonate 650mg TID, sevelamer -Daily BMP -f/u Nephrology recs #CAD Continue atorvastatin 80mg qHS #Mild protein-calorie malnutrition -Nutritional support #Hypothyroidism -Continue levothyroxine 200mcg qAM #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 (04/2017) 12/25/2017 TTE showed 66% LVEF, moderate concentric LVH, RVSP 70, severely dilated LA, dilated RA, 2+ MR, 2-3+ TR, 3+ AR -Continue UF with IHD, once euvolemic, repeat TTE #CVA -Restart ASA 81mg once Hgb stabilizes Diet: Renal DVT PPx: IPCs GI PPx: Pantoprazole 40mg qDay Medication and Non-Pharmacologic VTE Prophylaxis/Anticoagulants 12/26/171944 pneumatic compression stockings ([place], [place]) 12/26/17 194 activity - mobilize patient ([place] 12/24/17 161 vte non-pharmacologic prophylaxis - none indicated ([place]) 12/24/17 161 vte current anticoag therapy ([place] 12/24/17 161 activity - mobilize patient ([place]) VTE Prophylaxis: VTE prophylaxis appropriate SIGNATURE: Delano Nelson MD PATIENT NAME: Frank Rivera DATE: December 29, 2017 TIME: 5:06 PM PAGER/CONTACT #: [phone] [facility] STAFF: TEACHING PHYSICIAN NOTE OF PERSONAL INVOLVEMENT IN CARE I have reviewed the progress note obtained and documented by the resident and I personally participated in the hernandez components. I have discussed the case and management of the patient's care with the resident. The following comments revise or confirm relevant hernandez components of the resident's note. 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 Patient had no history of aortic stenosis requiring aortic valve replacement and left 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 ablation atrial fibrillation and sick sinus syndrome and pacemaker placement. He had a Min-en-Y bypass complicated by recurrent GI bleeds and iron deficiency anemia. He also had a bone marrow biopsy to evaluate pancytopenia to rule out myeloma process. Hospital course complicated by need for red cell and platelet transfusion as well as spontaneous rectus sheath hematoma. Was on apixaban, but this has been held. Eventually required CVVHD and then hemodialysis for hypoxemic respiratory failure and volume overload requiring MICU stay. 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 Adenopathy noted on CAT scans and ultrasounds. Transthoracic echo does show worsening aortic insufficiency. PLAN: Continue hemodialysis per nephrology Infectious disease input Consider CHANDRAKANT to rule endocarditis source as he is febrile. Blood cultures Consider immunosuppression and/or pulsed dose steroids if no vegetations on CHANDRAKANT Hold on further lymph node biopsies Appreciate nephrology and hematology inputs. Care Coordination The majority of the visit was spent counseling and/or coordinating care for the patient. [id number] time was 30 minutes Riley Baumann MD, [facility] Pager / Date and Time of Service: Date: December 30, 2017 Time: 5:20 PM Authenticated by responsible provider. PLAN OF CARE Observed: 12/29/2017 Status: COMPLETED Source: [place] 1:04 PM [facility] REPOSITORY HNO ID: [id number] Author: Joshua Saunders (Paige) Brandon Service: Critical Care Author Type: Resident Type: Plan of Care Filed: 12/29/2017 1:06 PM Note Text: Patient was signed out to Adrien villavicencio, resident Delano travis [phone]. Pt has a bed on G100-12. Please contact him with any further questions when the patient reaches the floor. Joshua Taylor PGY-3, Internal Medicine [id number] SURGICAL PATHOLOGY Observed: 12/29/2017 Status: C Source: [place] [id number] PM [facility] REPOSITORY ADDENDUM PRESENT Specimen #: [id number] Submitting Physician: VANESSA THOMAS MD ADDENDUM Date Ordered: 01/15/2018 Date Reported: 01/15/2018 In addition to reviewing the CD138 immunohistochemical stain provided on one section, a separate CD138 immunohistochemical stain was performed at [facility] on the other block to verify the quantification of plasmacytosis. There is no change in diagnosis. 01/15/18 Addendum Pathologist: Sydni Beltran M.D. Electronic Signature FINAL DIAGNOSIS BONE MARROW, ASPIRATE SMEARS, CORE BIOPSY AND CLOT SECTION WITH PERIPHERAL BLOOD SMEAR ([id number], [facility], [place], [place]; 12/22/17): - NORMOCELLULAR MARROW (40%) WITH TRILINEAGE HEMATOPOIESIS. - MILD INCREASE IN POLYTYPIC PLASMA CELLS. - NORMOCYTIC ANEMIA AND THROMBOCYTOPENIA. - SEE COMMENT. COMMENT: The patient was reportedly being evaluated for chronic anemia and acute renal failure. Examination of the marrow is limited due to the small, crushed core biopsy and hemodiluted aspirate. Flow cytometric analysis performed at [facility] reportedly showed no abnormal myeloid maturation or increased blasts. There was reportedly no evidence of a lymphoproliferative disorder or plasma cell neoplasm. Cytogenetic studies are reportedly pending. PERIPHERAL BLOOD: CBC (12/22/17): WBC 4.0 k/uL; Hgb 8.9 g/dL; MCV 99.6 fL; RDW 20.6 %; Plts 84 k/uL Differential (%): Neuts 78 ; Lymphs 20 ; Monos 2 ; Eos 0 ; Baso 0 Morphology/Interpretation: Normocytic anemia with anisocytosis and no increased schistocytes or spherocytes. Thrombocytopenia. BONE MARROW ASPIRATE Normal % (0-2) 0 % Blasts (1-5) 1 % Promyelo (32-72) 73% Myelos/Metas/Bands/Segs (1-6) 2 % Eosinophils (0-1) 0 % Basophils (0-4) 2 % Monocytes (13-37) 10% Erythroid precursors (7-23) 8 % Lymphocytes (0-2) 4 % Plasma cells Myeloid/Erythro (1.5-4): 7.8 (hemodiluted) Cells counted: 400 Iron stain result: Adequate; no ring sideroblasts. Specimen Quality: Paucispicular and hemodiluted. Megakaryocytes: Present with normal morphology. Erythropoiesis: Progressive maturation. Granulopoiesis: Normal maturation. Other: Mild increase in plasma cells. BONE MARROW BIOPSY: Adequacy: Suboptimal (small with crush artifact). Cellularity: Appears normal (40%). ME ratio: Normal. Hematopoiesis: Trilineage maturation. Megakaryocytes: Adequate. Megakaryocyte morphology: Unremarkable. Lymphoid infiltrate: None seen. Atypical infiltrate: Scattered mild increase of plasma cells which are predominantly located in a perivascular location. Bone trabeculae: Unremarkable. Other: Provided immunohistochemical stain for CD138 shows a mild increase in plasma cells estimated at approximately 5%. A reticulin stain shows no increased reticulin fibrosis. Stains for kappa and lambda immunoglobulin light chains performed at [facility] on provided unstained sections show high background staining but show plasma cells are polytypic. A Congo Red stain also performed on a provided slide at [facility] was negative for amyloid deposition.' CLOT SECTION: Marrow particles: Many. Morphology: Similar to biopsy. Other: A CD138 immunohistochemical stain and reticulin stain show findings similar to those seen in the core biopsy. MARCEL/rustam/12/30/17 Sydni Beltran M.D. (Electronic Signature) SPECIMEN SUBMITTED A: 18 SLIDES ([id number]) CLINICAL DATA None provided. Date of Report: 01/05/2018 Date of Procedure: 12/29/2017 Date of Receipt: 12/29/2017 Submitted by: VANESSA THOMAS MD Location: J53 Diagnostic interpretation performed at [facility], [address], [facility] [address]. CONSULT PROG Observed: 12/29/2017 Status: COMPLETED Source: [place] 11:57 AM [facility] HNO ID: [id number] Author: Luciano Palmer (Fel) Service: Hematology Author Type: Fellow Type: Consult Progress Note Filed: 12/29/2017 4:10 PM Note Text: [facility] Inpatient Consult Progress Note PATIENT NAME: Frank Rivera ATTENDING PHYSICIAN: Dr. 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 Feels better and says he's able to bend and lift his legs today. Was unable to do this due to edema previous days. No new complaints HISTORY OF PRESENT ILLNESS: Mr. Rivera is a 62 year old man with history of afib s/p PPM and DCCV, on apixaban, HTN, hypothyroid, aortic stenosis s/p bioprosthetic ACR and RUDY ligation, sick sinus syndrome, h/o CVA, retinal embolism, h/o Min-en-Y bypass, chronic iron deficiency anemia, UGIB (1997, 2014, 2015) who presented to OSH with several weeks of worsening fatigue and shortness of breath. PCP ordered a CBC which was notable for Hgb ~7.5. He was admitted to OSH for further work up. On presentation he was noted to have guaiac pos stool and IRINA with Cr 4.12/BUN 70. He underwent GI work up with EGD, colonoscopy, and tagged RBC scan which were all negative. Renal function did not improve and he ultimately underwent a renal biopsy with prelim concerns for C3 nephropathy. A BMBX was also performed looking for plasma cell neoplasm given anemia and acute renal failure. Notable Labs at OSH on 12/23: CBC WBC 3.8, Hg 8.4, Plt 84 CMP Na 141, K 5.6, Chloride 119, CO2 17, BUN 60, Cr 3.71 Total protein 7 IgG 3273 H IgA 349 IgM 159 Albumin 2.4 Albmin/glboulin 0.6 Alpha 1 gloublins Lis 0.2 Alpha 2 globulins Lis 0.5 Beta glboluins Lis 0.87 Gamma globulins 4.6 (H) Complement C3 64 (L) Complement C4 17 Free [place] 402.7 (H) Free Lambda 378.8 (H) Free [place]/Lambda ratio 1.06 ? 12/24 labs: CBC shows WBC 3.2, Hg 7.8, Plt 80 CMP shows Na 141, K 5.3, CO2 17, Chlroide 118, BUN 61, Cr 4.07, Phosphorsu 5.5 Bone marrow biopsy (full results in patient record on nursing floor): Normocellular marrow with mild plasmacytosis. Iron-absent Peripheral blood-macrocytic anemia and thrombocytopenia. Flow cytometry study from [facility] shows no evidence for abnormal myeloid maturation or an increased blast population. There is no evidence for a lymphoproliferative disorder or plasma cell neoplasm. Cytogenetic studies are pending at this time. ? Kidney biopsy (full report in his patient record on nursing floor): -Glomeruli showing focal segmental mesangiolysis (3 of 28 glomeruli), vague nodularity (2 of 28 glomeruli) and a single cellular crescent (1 of 28 glomeruli). -Mild tubular injury. -Moderate interstitial fibrosis and tubular atrophy. -strong granular IgM and C3 staining on immunofluorescence, with weak granular staining for C1q and kappa and lambda light chains. -Electron microscopy with occasional, poorly definied electron- dense areas in mesangium. ? Patient reporting lower abd pain, more significant on Left lower quadrant which started today. Reports decreased urine output. Urine that he does make is tea colored, no cruz blood, non-foamy. He reports fluid retention and 10+lb weight gain since hospitalization. Denies recent tobacco or alcohol intake. 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 He has received 6U PRBC and 2U PLT transfusions at OSH prior to transfer. ROS: 01/03 reviewed and negative except as above ALLERGIES ALLERGIES Allergen Reactions - Penicillin Hives MEDICATIONS Current Facility-Administered Medications: acetaminophen 650 mg tab(s) (TYLENOL) 650 mg ORAL/FEEDING TUBE q 6 H PRN And acetaminophen 650 mg suppository (TYLENOL) 650 mg RECTAL q 6 H PRN senna-docusate 8.6-50 mg 1 tablet (SENNA-S) 1 tablet ORAL/FEEDING TUBE BID polyethylene glycol 3350 17 g packet (MIRALAX, GLYCOLAX) 17 g ORAL DAILY sodium bicarbonate 650 mg tab(s) 650 mg ORAL TID docusate sodium 100 mg cap(s) (COLACE) 100 mg ORAL BID 0.9% NaCl 2-10 mL 2-10 mL INTRAVENOUS PRN sodium citrate 4% 3-6 mL catheter lock 3-6 mL INTRALUMINAL PRN phosphorus 500 mg tab(s) (K PHOS NEUTRAL) 500 mg ORAL/FEEDING TUBE PRN Or sodium phosphate 15 mmol in D5W 250 mL 15 mmol INTRAVENOUS PRN Or sodium phosphate 30 mmol in D5W 250 mL 30 mmol INTRAVENOUS PRN Or sodium phosphate 45 mmol in D5W 250 mL 45 mmol INTRAVENOUS PRN 0.9% NaCl 3-5 mL 3-5 mL INTRAVENOUS q 12 H tamsulosin ER 0.4 mg cap(s) (FLOMAX) 0.4 mg ORAL DAILY 0.9% NaCl 3-5 mL 3-5 mL INTRAVENOUS q [address] 40 mg tab(s) (PROTONIX) 40 mg ORAL BID levothyroxine 200 mcg tab(s) (SYNTHROID) 200 mcg ORAL BEFORE BREAKFAST DAILY atorvastatin 80 mg tab(s) (LIPITOR) 80 mg ORAL AT BEDTIME PHYSICAL EXAMINATION: BP 113/64 Pulse 66 Temp 37.4 ?C (99.3 ?F) (Oral) Resp 20 Ht 193 cm (6' 3.98) Wt 114.9 kg (253 lb 4.9 oz) SpO2 95% BMI 30.85 kg/m? Intake/Output Summary (Last 24 hours) at 12/29/17 1157 Last data filed at 12/29/17 0900 Gross per 24 hour Intake 1276 ml Output 1234 ml Net 42 ml General: Elderly man, sitting in chair. In NAD HEENT: PERRLA, EOMI, anicteric sclera, MMM Neck: Supple Resp: No use of accessory muscles, non labored breathing Abd: Soft, LLQ with purple marking (by primary team) but no obvious bruising. Large hematoma is palpated. MSK: +edema, slightly improved from yesterday. Neuro: AAOx3, no acute focal deficits. Skin: Warm, dry, intact. No rashes. Lines without oozing. LABORATORY DATA Recent Labs 12/29/17 0228 12/28/17 1845 12/28/17 1355 WBC 4.58 3.83 3.39* RBC 2.29* 2.42* 2.36* HB 7.1* 7.3* 7.1* HCT 21.2* 22.2* 21.8* PLT 60* 59* 66* MCV 92.6 91.7 92.4 MCH 31.0 30.2 30.1 MCHC 33.5 32.9 32.6 RDWCV 17.9* 18.0* 18.1* MPV 10.2 10.6 10.9 NEUTP 74.8 70.1 70.8 ABSNEUT 3.42 2.67 2.39 LYMPHP 20.7 23.8 22.1 MONOP 4.1 5.5 6.8 EODINP 0.2 0.3 0.3 BASOP 0.2 0.3 0.0 ABSMONO 0.19 0.21 0.23 ABSEOSIN <0.03 <0.03 <0.03 ABSBASO <0.03 <0.03 <0.03 Recent Labs 12/29/17 0416 12/29/17 0228 12/27/17 2318 12/27/17200612/27/17 0353 12/26/17 2328 12/26/17 2156 12/26/17 1753 12/26/17 1220 NA 134* -- 137 -- -- -- -- 140 -- -- < > -- K 3.9 -- 4.3 -- -- -- -- 4.4 -- -- < > -- CHLOR 103 -- 110* -- -- -- -- 116* -- -- < > -- CO2 22 -- 20* -- -- -- -- 15* -- -- < > -- CREAT 4.74* -- 4.50* -- -- -- -- 5.01* -- -- < > -- BUN 44* -- 52* -- -- -- -- 60* -- -- < > -- GLUC 99 -- 81 -- -- -- -- 96 -- -- < > -- P 4.1 -- 4.4 4.5 -- 6.2* -- 5.8* < > -- -- -- TPROT -- -- 6.1* -- -- -- -- -- -- -- -- -- ALB -- -- 1.9* -- -- -- -- -- -- -- -- -- MG 1.7 -- -- 1.8 -- -- -- 1.8 -- -- -- -- CA 7.5* -- 7.6* -- -- -- -- 7.1* -- -- < > -- ALKPHOS -- -- 141* -- -- -- -- -- -- -- -- -- TBILI -- -- 0.8 -- -- 0.7 -- -- -- -- -- -- AST -- -- 32 -- -- -- -- -- -- -- -- -- ALT -- -- 22 -- -- -- -- -- -- -- -- -- URICACID -- -- -- -- -- -- -- -- -- -- -- 10.2* PTSEC -- -- -- -- -- -- -- 16.2* -- -- -- -- INR -- -- -- -- -- -- -- 1.6* -- -- -- -- APTT -- 38.6* 36.5* -- 31.0 Blood/Anticoagulant Ratio in tube unsatisfactory. < > -- -- -- -- -- DDMER -- -- -- -- -- -- -- -- -- 1,910* -- -- < > = values in this interval not displayed. PATHOLOGY: IMAGING: Reviewed in EPIC ASSESSMENT AND PLAN: Mr. Rivera is a 62 year old man with history of afib s/p PPM and DCCV, on apixaban, HTN, hypothyroid, aortic stenosis s/p bioprosthetic ACR and RUDY ligation, sick sinus syndrome, h/o CVA, retinal embolism, h/o Min-en-Y bypass, chronic iron deficiency anemia, UGIB (1997, 2014, 2015) who presented to OSH with several weeks of worsening fatigue and shortness of breath. Found to have acute kidney injury and throbocytopenia and anemia refractory to blood transfusions. Hematology consulted for autoimmune hemolytic anemia. - Smear reviewed. Notable for few schistocytes, yojana cells, rare spherocytes. Decreased platelets without clumping. Normal leukocytes. - CT a/p with rectus sheath hematoma. Pt denies any procedures or injections into abd. Unclear why he would develop a spontaneous hematoma without overt evidence of coagulopathy. - CT a/p and LE dopplers also showed LAD as noted above. Will need to r/o lymphoproliferative disorder. Overall picture seems mores consitent with an autoimmune process. Note, weakly positive FELICIA however eluate was negative. Given this, patient does not have autoimmune hemolytic anemia but rather likely has elevated immunoglobulins (? Due to autoimmune process). Flow cytometry negative. LDH stable. Epo level inappropriately normal at 16.9. IgG elevated but IgA and IgM normal. Recommendations: - CBC+diff daily - Recommend LN excisional biopsy. Agree with holding steroids for now while we purse biopsy to r/o lymphoproliferative process Patient discussed with staff, Dr. Greer. Luciano Palmer MD Fellow, Hematology and Medical Oncology Pager: [phone] CASE MANAGEM Observed: 12/29/2017 Status: COMPLETED Source: [place] 11:53 AM [facility] REPOSITORY HNO ID: [id number] Author: Riley Perez) DIEUDONNE Gandara Service: Care Management Author Type: Registered Nurse Type: Care Mgt Progress Note Filed: 12/29/2017 11:57 AM Note Text: CARE MANAGEMENT PROGRESS NOTE SERVICE DATE: 12/29/2017 SERVICE TIME: 11:53 AM LOS: 5 days Needs Prior to Discharge: To Be Determined Patient transferred to MICU for intitiation of HD and acute anemia. CM following medical course and will plan discharge accordingly. PT recs pending. SIGNATURE: Riley Gandara RN PATIENT NAME: Frank Rivera DATE: December 29, 2017 TIME: 11:53 AM PAGER/CONTACT #: [phone] CONSULT PROG Observed: 12/29/2017 Status: COMPLETED Source: [place] 9:28 AM [facility] REPOSITORY HNO ID: [id number] Author: Cedric Edward MD Service: Nephrology Author Type: Physician Type: Consult Progress Note Filed: 12/29/2017 11:24 AM Note Text: NEPHROLOGY PROGRESS NOTE INTERVAL HISTORY: Patient in no acute distress CRRT stopped yesterday Vital Signs; BP 127/73 Pulse 105 Temp 37.4 ?C (99.3 ?F) (Oral) Resp 18 Ht 193 cm (6' 3.98) Wt 114.9 kg (253 lb 4.9 oz) SpO2 96% BMI 30.85 kg/m? General appearance: Well appearing, alert, in no acute distress, Eyes: Anicteric sclera. PERRLA, EOMI Oropharynx: normal Neck: Supple, no adenopathy Lungs: Lungs clear to auscultation. No wheezing, rhonchi, rales Heart: RRR without murmur, 2+ B/L LE edema Abdomen: soft, mild tenderness, left sided hematoma. Bowel sounds normal. Peripheral pulses: Normal Neuro: Non focal Intake/Output Summary (Last 24 hours) at 12/29/17 0928 Last data filed at 12/29/17 0800 Gross per 24 hour Intake 956 ml Output 1489 ml Net -533 ml Labs: CBC: Recent Labs 12/29/17 0228 12/28/17 1845 12/28/17 1355 12/27/17 2318 12/27/17 0353 12/26/17 2156 12/26/17 1754 12/26/17 1751 12/26/17 1229 12/26/17 0529 12/25/17 0649 WBC 4.58 3.83 3.39* 3.03* 3.34* 3.35* 3.62* 3.59* 4.00 2.68* < > 4.05 HB 7.1* 7.3* 7.1* 7.1* 8.1* 5.6* 7.1* -- 8.0* 6.8* < > 8.6* HCT 21.2* 22.2* 21.8* 21.8* 24.9* 17.3* 22.2* -- 25.4* 22.4* < > 26.9* PLT 60* 59* 66* 63* 82* 73* 78* -- 80* 71* < > 86* MCV 92.6 91.7 92.4 92.8 95.0 97.2 95.7 -- 96.9 100.4* < > 97.8 RDWCV 17.9* 18.0* 18.1* 18.5* 18.4* 19.2* 19.1* -- 19.1* 19.1* < > 19.6* NEUTP 74.8 70.1 70.8 -- 68.0 -- 68.0 -- 69.7 77.6 -- 71.1 LYMPHP 20.7 23.8 22.1 -- 25.7 -- 24.3 -- 21.8 19.4 -- 21.0 MONOP 4.1 5.5 6.8 -- 6.3 -- 7.7 -- 8.5 3.0 -- 7.9 EODINP 0.2 0.3 0.3 -- 0.0 -- 0.0 -- 0.0 0.0 -- 0.0 < > = values in this interval not displayed. COAG: Recent Labs 12/29/17 0228 12/27/17231712/27/173 12/26/17232712/26/17215512/25/172153 APTT 38.6* 36.5* 31.0 Blood/Anticoagulant Ratio in tube unsatisfactory. -- 38.7* INR -- -- -- -- 1.6* 1.6* BNP: Recent Labs 12/29/17 0416 12/27/17231712/27/17 2007 12/26/17 23212/26/17215512/26/17 1750 12/26/17 1342 12/26/17 0529 12/25/17 2329 12/25/17 0649 12/24/17 1618 GLUC 99 81 -- -- 96 81 73* 108* -- 84 -- 117* NA 134* 137 -- -- 140 139 141 138 -- 136 -- 137 K 3.9 4.3 -- -- 4.4 5.2* 5.4* 5.7* 5.6* 5.4* < > 5.6* CHLOR 103 110* -- -- 116* 112* 113* 114* -- 110* -- 110* CO2 22 20* -- -- 15* 17* 16* 13* -- 14* -- 16* ANION 9 7* -- -- 9 10 12 11 -- 12 -- 11 BUN 44* 52* -- -- 60* 68* 67* 69* -- 64* -- 62* CREAT 4.74* 4.50* -- -- 5.01* 5.43* 5.63* 4.79* -- 4.52* -- 4.29* P 4.1 4.4 4.5 6.2* 5.8* -- -- 6.7* -- -- -- -- < > = values in this interval not displayed. CHEM: Recent Labs 12/29/17 0416 12/27/17231712/27/17200612/26/17 2156 12/26/17 1750 12/26/17 1342 12/26/17 0529 12/25/17 0649 12/24/17 1618 ALB -- 1.9* -- -- -- -- -- -- 2.5* TPROT -- 6.1* -- -- -- -- -- 7.0 7.6 CA 7.5* 7.6* -- 7.1* 7.9* 8.4* 8.0* 7.9* 8.2* MG 1.7 -- 1.8 1.8 -- -- -- -- -- HEPATIC: Recent Labs 12/27/17231712/26/178 12/24/17 1618 ALKPHOS 141* -- 205* ALT 22 -- 30 AST 32 -- 42* TBILI 0.8 0.7 0.8 ASSESSMENT AND PLAN: 62y male with nml baseline cr october 0.9, now returns 12/14/17 with complaints of fatigue without rash, neuro, rheum, oral ulcers, found to be anemic, GI eval wihtout source, + hemolysis, multiple pRBC transfusions locally, IRINA with cr 4.1 on admission and essentially stable since then, renal Bx /, without definitive diagnosis, by report. Also with Bone marrow bx. 1. 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 Reviewed report with pathology- trying to obtain path slides for formal review. C3 low, ANCA +, mild increase in MPO, FATOU-, petar +. Blood cultures -ve, HIV/HepB/HepC -ve. Echo without vegatation. CT abd with hematoma L rectus Cryoglobulins, antiENA, ds DNA - all in process Serum uric acid 10.2 LIJ NTDC placed 12/27, started on CVVHD 2. Electrolytes: Hyperkalemia - improved 3. Volume status: Euvolemic 4. Acid-base: NAGMA 5. Bone mineral disease (Ca/P/PTH): elevated phos, on sevelamer Plan: IHD today, 4K bath, 2-3L UF Continue with sevelamer 800mg PO QAC. Review of path slides pending, will check if biopsy slides have arrived Strict I/O's Daily weights Renal diet Dose medications for eGFR <10 mL/min Janessa Sheikh MD Nephrology AND Hypertension Fellow, PGY4 Pager [phone] December 29, 2017 9:28 AM TEACHING PHYSICIAN NOTE OF PERSONAL INVOLVEMENT IN CARE I have reviewed the Progress Note obtained and documented by Dr. Sheikh and I personally participated in the hernandez components. I have discussed the case and management of the patient's care and I agree with the formulated assessment and plan. In addition to above note: 62 yoM w h/o obesity s/p gastric bypass 1995, hypertension, atrial fibrillation on AC, hypothyroidism, severe s/p AVR 04/2017 and sick sinus Sd s/p PPM admitted with fatigue, found to be hemolyzing with anemia and acute renal failure. ? #. Acute renal failure - No h/o CKD - baseline SCr ~ 0.9-1 - Etiology: uncertain; ? TMA - awaiting biopsy slides to review here - Serologies: C3 low, ANCA + mild increase in MPO, fatou-, petar +. - UPC 1.4 grams. ? #. Active diagnoses: - Lt rectus sheath hematoma - Anemia / ? Hemolysis vs. Blood loss - Lymph nodes - awaiting biopsy RECS: Still awaiting the biopsy slides - will deliver an IHD treatment today - 4 hour session -4 K bath - 3-4L UF goal. Cedric Edward MD, FASN - Pager [phone] December 29, 2017 @ 11:23 AM CONSULT PROG Observed: 12/29/2017 Status: COMPLETED Source: [place] 8:29 AM [facility] REPOSITORY HNO ID: [id number] Author: Rupali Polanco Service: General Surgery Author Type: Physician Type: Consult Progress Note Filed: 12/29/2017 11:23 AM Note Text: [facility] STAFF PHYSICIAN NOTE OF PERSONAL INVOLVEMENT IN CARE I have reviewed the consult note obtained and documented by the resident and I personally participated in the hernandez components. I have discussed the case and management of the patient's care. The following comments revise or confirm relevant hernandez components of the note. IMPRESSION: This is a 62 year old with complex renal and hematologic disorder uncharacterized. prior hematoma. exam shows nonsuspicious axillary lymphadenopathy. PLAN: report of not yet evaluated BM slides and kidney bx from [facility]. would obtain that information and perhaps repeat as yield from LN bx low. Deepak Polanco MD, FACS Date of Service: December 29, 2017 Time of Service: 11:21 AM GENERAL SURGERY PROGRESS NOTE Consult For: rectus sheath hematoma and excisional lymph node biopsy Interval Events/Issues: No acute events VSS with mild tachycardia Hg 7.1 and plt 60, stable over last 3 days UOP 20-30cc/hr, now off CVVHD Subjective Current hospital medications: acetaminophen 650 mg tab(s) (TYLENOL) 650 mg ORAL/FEEDING TUBE q 6 H PRN acetaminophen 650 mg suppository (TYLENOL) 650 mg RECTAL q 6 H PRN senna-docusate 8.6-50 mg 1 tablet (SENNA-S) 1 tablet ORAL/FEEDING TUBE BID polyethylene glycol 3350 17 g packet (MIRALAX, GLYCOLAX) 17 g ORAL DAILY sodium bicarbonate 650 mg tab(s) 650 mg ORAL TID docusate sodium 100 mg cap(s) (COLACE) 100 mg ORAL BID 0.9% NaCl 2-10 mL 2-10 mL INTRAVENOUS PRN sodium citrate 4% 3-6 mL catheter lock 3-6 mL INTRALUMINAL PRN phosphorus 500 mg tab(s) (K PHOS NEUTRAL) 500 mg ORAL/FEEDING TUBE PRN sodium phosphate 15 mmol in D5W 250 mL 15 mmol INTRAVENOUS PRN sodium phosphate 30 mmol in D5W 250 mL 30 mmol INTRAVENOUS PRN sodium phosphate 45 mmol in D5W 250 mL 45 mmol INTRAVENOUS PRN 0.9% NaCl 3-5 mL 3-5 mL INTRAVENOUS q 12 H tamsulosin ER 0.4 mg cap(s) (FLOMAX) 0.4 mg ORAL DAILY 0.9% NaCl 3-5 mL 3-5 mL INTRAVENOUS q [address] 40 mg tab(s) (PROTONIX) 40 mg ORAL BID levothyroxine 200 mcg tab(s) (SYNTHROID) 200 mcg ORAL BEFORE BREAKFAST DAILY atorvastatin 80 mg tab(s) (LIPITOR) 80 mg ORAL AT BEDTIME Objective PHYSICAL EXAM: Patient Vitals for the past 8 hrs: BP Temp Temp src Pulse Resp SpO2 Weight 12/29/17 0800 127/73 - - 105 18 96 % - 12/29/17 0700 123/65 - - 79 16 95 % - 12/29/17 0600 128/72 - - 109 21 97 % - 12/29/17 0500 123/62 - - 111 18 94 % 114.9 kg (253 lb 4.9 oz) 12/29/17 0400 131/65 37.4 ?C (99.3 ?F) Oral 82 18 95 % - 12/29/17 0300 123/61 - - 84 18 94 % - 12/29/17 0200 125/70 - - 113 20 95 % - 12/29/17 0100 141/68 - - 92 19 93 % - CONSTITUTIONAL: No acute distress NEUROLOGIC/PSYCHIATRIC: Oriented to time, place AND person LUNGS: Respiratory effort: normal on 2L NC HEART: mild tachy ABDOMEN: L abdomen with firm mass mildly tender to palpation and Non-distended SURGICAL SITES: None Right groin with palpable lymph node to deep palpation Date 12/28/17699 - 12/29/1765812/29/17699 - 12/30/17 0659 Shift 8721-3353 7276-0331 6068-8774 24 Hour Total 7800-0599 4331-6383 0930-4060 24 Hour Total I N T A K E PO 450 300 240 990 PO 450 300 240 990 IV 159 57 216 NS 0.9% 159 57 216 Shift Total 450 394 410 6608 O U T P U T Urine 260 130 55 445 Tube Output ( Indwelling Urinary Catheter 12/25/17 Assessment Herring) 260 130 55 445 # of BMs Number of BMs 0 x 0 x 0 x Dialysis 663 002 8316 Dialysis Output (Ultrafiltration) 738 648 8169 Shift Total 1172 848 95 0649 Weight (kg) 103.2 103.2 114.9 114.9 114.9 114.9 114.9 114.9 DATA: Laboratory: CBC, BMP, MG, PHOS Recent Labs 12/29/17 0416 12/29/17 0228 12/28/17 1845 12/28/17 1355 12/27/178 12/27/17200612/26/17232712/26/17215512/26/17 1750 WBC -- 4.58 3.83 3.39* 3.03* -- < > -- 3.35* < > -- HB -- 7.1* 7.3* 7.1* 7.1* -- < > -- 5.6* < > -- HCT -- 21.2* 22.2* 21.8* 21.8* -- < > -- 17.3* < > -- PLT -- 60* 59* 66* 63* -- < > -- 73* < > -- NA 134* -- -- -- 137 -- -- -- 140 -- 139 K 3.9 -- -- -- 4.3 -- -- -- 4.4 -- 5.2* CHLOR 103 -- -- -- 110* -- -- -- 116* -- 112* CO2 22 -- -- -- 20* -- -- -- 15* -- 17* BUN 44* -- -- -- 52* -- -- -- 60* -- 68* CREAT 4.74* -- -- -- 4.50* -- -- -- 5.01* -- 5.43* GLUC 99 -- -- -- 81 -- -- -- 96 -- 81 CA 7.5* -- -- -- 7.6* -- -- -- 7.1* -- 7.9* MG 1.7 -- -- -- -- 1.8 -- -- 1.8 -- -- P 4.1 -- -- -- 4.4 4.5 -- 6.2* 5.8* -- -- < > = values in this interval not displayed. Liver Function, Amylase, AND Lipase Recent Labs 12/27/17231712/26/17232712/25/17 2154 12/25/17 1718 12/25/17 0649 12/24/17 1618 11/26/15 1110 TPROT 6.1* -- -- -- 7.0 7.6 5.9* ALB 1.9* -- -- -- -- 2.5* 3.0* ALT 22 -- -- -- -- 30 13 AST 32 -- -- -- -- 42* 10 ALKPHOS 141* -- -- -- -- 205* 72 TBILI 0.8 0.7 -- -- -- 0.8 0.6 LACT -- -- 0.5 Unable to assay. Specimen improperly collected/handled. -- -- -- Coags Recent Labs 12/29/17 0228 12/27/17 2318 12/27/17 0353 12/26/17 2328 12/26/176 12/25/17 21508/18/16 0210 11/26/15 1110 APTT 38.6* 36.5* 31.0 Blood/Anticoagulant Ratio in tube unsatisfactory. -- 38.7* < > -- -- INR -- -- -- -- 1.6* 1.6* -- 1.11 1.13 < > = values in this interval not displayed. Assessment/Plan Impression: 62M admitted with symptomatic anemia and thrombocytopenia refractory to transfusions and oliguric IRINA s/t biopsy proven C3 nephropathy requiring CVVHD. Found to have spontaneous large L rectus sheath hematoma and significant lymphadenopathy on CT imaging. HDS with no active signs of ongoing bleeding. Plan: -R groin excisional Lymph node biopsy to rule out lymphoproliferative disorder per heme onc recs. - timing to be determined pending staff availability - consent in chart - continue to monitor H/H - rest of care per primary team Medication and Non-Pharmacologic VTE Prophylaxis/Anticoagulants 12/26/171944 pneumatic compression stockings (nv,ks) 12/26/171944 activity - mobilize patient ([place], [place]) 12/24/171614 vte non-pharmacologic prophylaxis - none indicated ([place], [place]) 12/24/171614 vte current anticoag therapy (nv,ks) 12/24/171614 activity - mobilize patient ([place], [place]) VTE Prophylaxis: Contraindicated thrombocytopenia and bleeding SIGNATURE: India Jay DO PATIENT NAME: Frank Rivera PAGER/CONTACT #: [phone] On weekends and after 6 PM on weekdays, [place] [phone]. PROGRESS Observed: 12/29/2017 Status: COMPLETED Source: [place] 7:13 AM [facility] REPOSITORY HNO ID: [id number] Author: Vanessa Thomas MD Service: Critical Care Author Type: Physician Type: Progress Notes Filed: 12/29/2017 2:06 PM Note Text: MICU PROGRESS NOTE WITH [facility] Primary Service: Beyer SERVICE DATE: 12/29/2017 SERVICE TIME: 7:13 AM Admission Date: 12/24/2017 Day #: 3 in the MICU. INTERVAL HISTORY: No acute overnight events. Patient is no longer on the CVVHD. Patient states he is feeling better overall. No complaints at this time. Pertinent physical: Abdomen distended, binder present, 3+ pitting edema to the level of the knees. Vent issues: N/A Drips: N/A Pertinent labs: IgG = 2890, Na 134, BUN 44, Cr 4.74, hgb 7.1 Micro: NGTD Imaging: CXR from 12/27 noted PLAN FOR THE DAY: - Possible transfer to the floor - Monitor for increase in size of rectus sheath hematoma - Gen surg, hematology, and nephrology following. Appreciate recommendations ASSESSMENT/PLAN: RENAL: # IRINA: - IRINA with cr 4.1 on admission and essentially stable since then, renal Bx 12/18, without definitive diagnosis - C4:17(wnl) - C3: 47 (Low) ?- Uncertain etiology, mixed glomerular pathology with some features consistent with TMA, but with C3 and IgM in mesangium, only one crescent inof 28. Reviewed report with pathology- trying to obtain path slides for formal review. C3 low, ANCA + mild increase in MPO, fatou-, petar +. Broad differential ? PLAN: - Appreciate Nephrology Recs - S/P CVVHD - DULCE panel normal - Cryoglobulin and DS DNA antibody pending - IgG = 2890 - Hold prednisone at this time - Sevelamer 800mg PO QAC - Uric acid = elevated at 10.2 ? # Hyperkalemia: - Initial admission K+ of 5.6 - Resolved ? PLAN: - Appreciate Nephrology Recs - S/P CVVHD ? HEMATOLOGY: # Rectus sheath hematoma: - Moderate LEFT rectus sheath hematoma - Measuring 7.1 x 5.2 x 19 cm - Surgery following ? PLAN: - Appreciate Surgery Recs - No indication for emergent surgical intervention - Check CBC Q6 h, transfuse PRN - There was a drop in hgb from 8.1 to 7.1 on 12/27. Now stable at 7.1 - If there is any concern for active bleeding, consider getting IR involved for localization/embolization ? # Anemia: - Hx of iron deficient anemia and B12 deficiency - BM biopsy: Normocellular marrow with mild plasmacytosis. Iron-absent - Peripheral blood-macrocytic anemia and thrombocytopenia. - Flow cytometry study from [facility] shows no evidence for abnormal myeloid maturation or an increased blast population. There is no evidence for a lymphoproliferative disorder or plasma cell neoplasm. ?- Smear reviewed. Notable for few schistocytes, yojana cells, rare spherocytes. Decreased platelets without clumping. Normal leukocytes ?- Reticulocyte count: 2.4(elevated) - Haptoglobin:<10 (low) - PT/INR:16/1.6 (elevated) - PTT:38.7 (elevated) - Ferritin:422(wnl) - Iron: 140 (wnl) - TIBC:<157 (low) - Transf Sat:>89 (high) - Urine prot:124(elevated) - Alpha1/2 beta, gamma, glob: wnl - [place]:464.1(elevated) - [place]:343(eleated) - K/l Ratio1.35(wnl) - Cause still unknown. Hemolytic vs active bleed ? PLAN: - Appreciate Hematology recs - Elevated LDH with suppressed haptoglobin - Fibrinogen 115, D-dimer 1910 - IgG = 2890 - Holding steroids for now while we pursue biopsy to r/o lymphoproliferative process - EPO = 16.9 - IV ferrlicet 125 mg daily x 5 days ? # Thrombocytopenia: - Plts: 60 - Shistocytes seen on Peripheral smear, BMbx: normocellular ?- Possible Consumptive process w/ hemolytic anemia ? PLAN: - Appreciate Hematology recs - Continue to monitor ? CV: # Afib: - Previously on Eliquis, ?s/p PPM and DCCV in 04/2017 - ChadsVASC:4 ? PLAN: - Hold BP meds, and (AC) Eliquis for recent Hematoma ? # H/O CVA: - Hx of Dysphagia ? PLAN: - Renal diet - Continue to monitor ? # CAD: - S/p CABG and AVReplacement ? PLAN: - Holding HTN meds - Continue Statin Therapy ? # Heyd's syndrome: - No evidence of GI bleed at this time ? # HTN: - Hold home meds at this time ? LYMPH: # LAD: - Multiple enlarged LN seen on U/S and 2.6 LN seen abutting Celiac on CT abd/pel ? PLAN: - General surgery consulted for excisional LN biopsy, appreciate recommendations - Date to be decided ? OBJECTIVE: VITAL SIGNS (last 24hrs min/max): Temp Av.6 ?C (97.8 ?F) Min: 36.3 ?C (97.3 ?F) Max: 36.8 ?C (98.2 ?F) Pulse Av.6 Min: 64 Max: 106 No Data Recorded Cuff BP Min: 116/70 Max: 159/77 Pain Score: 3/10 BP 128/72 Pulse 109 Temp 37.4 ?C (99.3 ?F) (Oral) Resp 21 Ht 193 cm (6' 3.98) Wt 114.9 kg (253 lb 4.9 oz) SpO2 97% BMI 30.85 kg/m? NET FLUID BALANCE Intake/Output Summary (Last 24 hours) at 12/29/17 0713 Last data filed at 12/29/17 0600 Gross per 24 hour Intake 1206 ml Output 1648 ml Net -442 ml MEDICATIONS Hospital/inpatient medications reviewed INDWELLING CATHETERS: Day 1 of dialysis triple lumen catheter at right neck (12/27) indwelling herring catheter (12/25) ? HEENT: Oral Mucosa: Moist mucous membranes Feeding Tube: No Eyes: PERRLA Neck: Unremarkable; No adenopathy or JVD ? Cardiovascular: Murmur Systolic and RUSB Relevant Hemodynamic Data: N/A Respiratory: Clear to auscultation Supplemental Oxygen: Yes. 2 L NC ? Abdomen: Soft and Tender at LLQ on deep palpation Extremities: Edema- No Peripheral Pulses- Present all extremities Skin: Abnormalities- Please refer to nursing documentaion Neurologic: Awake, oriented ? NUTRITION: Renal diet Enteral Feeds: No DATA: Laboratory: CBC: Recent Labs 12/29/17 0228 12/28/17 1845 12/28/17 1355 12/27/17 2318 10/07/35212/26/17215512/26/17175312/26/17 17512/26/17 1229 WBC 4.58 3.83 3.39* 3.03* 3.34* 3.35* 3.62* 3.59* 4.00 HB 7.1* 7.3* 7.1* 7.1* 8.1* 5.6* 7.1* -- 8.0* HCT 21.2* 22.2* 21.8* 21.8* 24.9* 17.3* 22.2* -- 25.4* PLT 60* 59* 66* 63* 82* 73* 78* -- 80* MCV 92.6 91.7 92.4 92.8 95.0 97.2 95.7 -- 96.9 RDWCV 17.9* 18.0* 18.1* 18.5* 18.4* 19.2* 19.1* -- 19.1* NEUTP 74.8 70.1 70.8 -- 68.0 -- 68.0 -- 69.7 ABSNEUT 3.42 2.67 2.39 -- 2.26 -- 2.45 -- 2.77 LYMPHP 20.7 23.8 22.1 -- 25.7 -- 24.3 -- 21.8 MONOP 4.1 5.5 6.8 -- 6.3 -- 7.7 -- 8.5 EODINP 0.2 0.3 0.3 -- 0.0 -- 0.0 -- 0.0 COAG: Recent Labs 12/29/17 0228 12/27/17231712/27/1735212/26/17232712/26/17215512/25/172153 APTT 38.6* 36.5* 31.0 Blood/Anticoagulant Ratio in tube unsatisfactory. -- 38.7* INR -- -- -- -- 1.6* 1.6* BMP: Recent Labs 12/29/17 0416 12/27/17231712/26/17215512/26/17 17512/26/17 1342 12/26/17 0529 12/25/17 23212/25/17 0649 12/24/17 1618 GLUC 99 81 96 81 73* 108* -- 84 -- 117* NA 134* 137 140 139 141 138 -- 136 -- 137 K 3.9 4.3 4.4 5.2* 5.4* 5.7* 5.6* 5.4* < > 5.6* CHLOR 103 110* 116* 112* 113* 114* -- 110* -- 110* CO2 22 20* 15* 17* 16* 13* -- 14* -- 16* ANION 9 7* 9 10 12 11 -- 12 -- 11 BUN 44* 52* 60* 68* 67* 69* -- 64* -- 62* CREAT 4.74* 4.50* 5.01* 5.43* 5.63* 4.79* -- 4.52* -- 4.29* < > = values in this interval not displayed. CHEM: Recent Labs 12/29/17 0416 12/27/17231712/27/17200612/26/17 21512/26/17 17512/26/17 1342 12/26/17 0529 12/25/17 0649 12/24/17 161 ALB -- 1.9* -- -- -- -- -- -- 2.5* TPROT -- 6.1* -- -- -- -- -- 7.0 7.6 CA 7.5* 7.6* -- 7.1* 7.9* 8.4* 8.0* 7.9* 8.2* MG 1.7 -- 1.8 1.8 -- -- -- -- -- HEPATIC: Recent Labs 12/27/17231712/26/17 2328 12/24/17 1618 ALKPHOS 141* -- 205* ALT 22 -- 30 AST 32 -- 42* TBILI 0.8 0.7 0.8 URINALYSIS: Recent Labs 12/24/17 1720 SPGR 1.013 UGLUC Negative UBILI Negative UKET Negative UHB 3+* UPROT 100* UWBC >25* CARDIAC: Recent Labs 12/26/17 17512/24/17 1907 CKMBP 1.8 -- PBNP -- 31,933* EKG: most recent image reviewed TELE: most recent recordings reviewed CXR: most recent image reviewed Echocardiogram: most recent image reviewed Cardiac Catheterization: most recent image reviewed Radiology: most recent image reviewed PATIENT CHECKLIST ? Are restraints necessary: No ? Deep vein thrombosis prophylaxis administered? No. Contraindicated. ? Stress ulcer prophylaxis? Yes ? Nasogastric tube? No ? Herring catheter necessary? Yes ? Is central line essential? Yes ? Plan discussed with assigned RN? Yes ? Family updated within last 24 hours? Yes Code/Social/Dispo: Possible transfer to floor today SIGNATURE: Scott Graves MD PGY-1 PATIENT NAME: Frank Rivera DATE: December 28, 2017 TIME: 2:34 PM PAGER/CONTACT #: [phone] [facility] STAFF PHYSICIAN NOTE OF PERSONAL INVOLVEMENT IN CARE I have reviewed the history and physical obtained and documented by the resident, and personally interviewed, examined and reviewed records/data/labs/radiographs. I personally participated in the hernandez components and I agree with the history physical examination, data assessment, diagnosis and plan as outlined except where differences are stated below. I have discussed the case and management of the patient's care. The following comments revise or confirm relevant hernandez components of the note. IMPRESSION:?62 yo M with above mentioned past medical history most significant for atrial fibrillation, CAD s/p CABG, Heyde's syndrome, Aortic stenosis s/p bioprosthetic AVR, SSS s/p PM ? Active issues: Anemia - worked up for GI bleeding - negative and most likely from rectus sheath hematoma Acute kidney injury ? PLAN:? Transitioned to IHD for IRINA. Follow up with nephrology. Hg stabilized, most likely hemolysis, patient's rectus sheath hematoma seems to have stabilized Suitable for transfer out of the ICU SIGNATURE: Vanessa Thomas MD [facility] PAGER:[phone] DATE of SERVICE: December 29, 2017 TIME of SERVICE: 2:04 PM BASIC METABOLIC PANL Collected: 12/29/2017 Status: F Source: [place] 4:16 AM [facility] REPOSITORY TYPE CODE TESTS RESULT OUT OF REFERENCE UNITS RANGE LAB GLU 74-99 mg/dL Glucose 99 Result Comment: The [place] Diabetes [employer] (ADA) provides guidance for cutoff values for fasting glucose and random glucose. The ADA defines fasting as no caloric intake for at least 8 hours. Fas ting plasma glucose results between 100 to 125 mg/dL indicate increased risk for diabetes (prediabetes). Fasting plasma glucose results greater than or equal to 126 mg/dL meet the criteria for diagnosis of diabetes. In the absence of unequivocal hyperglycemia, results should be confirmed by repeat testing. In a patient with classic symptoms of hyperglycemia or hyperglycemic crisis, random plasma glucose results greater than or equal to 200 mg/dL meet the criteria for diagnosis of diabetes. Reference: Standards of Medical Care in Diabetes 2016, [place] [employer] Association. Diabetes Care. 2016.39(Suppl 1). LAB BUN 9-24 mg/dL BUN High 44 LAB CRET 0.73-1.22 mg/dL Creatinine High 4.74 LAB NA 136-144 mmol/L Low Sodium 134 LAB K 3.7-5.1 mmol/L Potassium 3.9 LAB CL 97-105 mmol/L Chloride 103 LAB CO2 22-30 mmol/L CO2 22 LAB AGAP 9-18 mmol/L Anion Gap 9 LAB CA 8.5-10.2 mg/dL Low Calcium, Total 7.5 LAB GFRAA eGFR- Amer. 15 LAB GFRNAA . eGFR-All Other Races 13 Result Comment: eGFR (Estimated GFR) Units of measure: mL/min/1.73 meters squared eGFR is derived from the reexpressed MDRD Study equation using the following parameters: serum creatinine, age, gender and race. The creatinine assay has been calibrated to be traceable to IDMS. An eGFR <60 mL/min/1.73m2 for >3 months is consistent with chronic kidney disease. Refer to KDOQI guidelines for clinical interpretation. In patients with unstable renal function, e.g. those with acute kidney injury, the eGFR may not accurately reflect actual GFR. Performed By: #### BMP, MG1, PHOS #### [facility] [employer] [address] [place], [place] [address] MAGNESIUM Collected: 12/29/2017 Status: F Source: [place] 4:16 AM [facility] REPOSITORY TYPE CODE TESTS RESULT OUT OF REFERENCE UNITS RANGE LAB MG 1.7-2.3 mg/dL Magnesium 1.7 Performed By: #### BMP, MG1, PHOS #### [facility] [employer] [address] [place], [place] [address] PHOSPHORUS Collected: 12/29/2017 Status: F Source: [place] 4:16 AM [facility] REPOSITORY TYPE CODE TESTS RESULT OUT OF REFERENCE UNITS RANGE LAB PHOS 2.7-4.8 mg/dL Phosphorus 4.1 Performed By: #### BMP, MG1, PHOS #### [facility] [address] [place], [place] [id number] APTT Collected: 12/29/2017 Status: F Source: [place] 2:28 AM [facility] REPOSITORY TYPE CODE TESTS RESULT OUT OF RANGE REFERENCE UNITS LAB APTT 23.0-32.4 sec High APTT 38.6 Result Comment: Unfractionated Heparin Therapeutic Ranges: Standard Heparin Nomogram: 53 to 78 seconds (anti-Xa level of 0.3 to 0.7 U/ml) Low Dose/ACS Nomogram: 49 to 67 seconds (anti-Xa level of 0.2 to 0.5 U/ml) Stroke Treatment Nomogram: 49 to 67 seconds (anti-Xa level of 0.2 to 0.5 U/ml) Note: The APTT therapeutic range has been determined for the current lot of laboratory APTT reagent in use throughout the [facility]. Performed By: #### PTT, CBCDIF #### [facility] [address] [place], [place] [address] CBC AND DIFFERENTIAL Collected: 12/29/2017 Status: F Source: [place] 2:[address] [place] [address] REPOSITORY TYPE CODE TESTS RESULT OUT OF REFERENCE UNITS RANGE LAB WBC 3.70-11.00 k/uL WBC 4.58 LAB RBC 4.20-6.00 m/uL Low RBC 2.29 LAB HGB 13.0-17.0 g/dL Low Hemoglobin 7.1 LAB HCT 39.0-51.0 % Low Hematocrit 21.2 LAB MCV 80.0-100.0 fL MCV 92.6 LAB MCH 26.0-34.0 pG MCH 31.0 LAB MCHC 30.5-36.0 g/dL MCHC 33.5 LAB RDWCV 11.5-15.0 % RDW-CV High 17.9 LAB PLTCT 150-400 k/uL Low Platelet Count 60 Result Comment: No clot detected. LAB MPV 9.0-12.7 fL MPV 10.2 LAB ANEUT % Neut% 74.8 LAB AANEUT 1.45-7.50 k/uL Abs Neut 3.42 LAB ALYMP % Lymph% 20.7 LAB AALYMP 1.00-4.00 k/uL Abs Low Lymph 0.95 LAB AMONO % Pope% 4.1 LAB AAMONO <0.87 k/uL Abs Pope 0.19 LAB AEOS % Eosin% 0.2 LAB AAEOS <0.46 k/uL Abs Eosin <0.03 LAB ABASO % Baso% 0.2 LAB AABASO <0.11 k/uL Abs Baso <0.03 LAB AUNRBC 0 /100 WBC NRBCs 0.0 LAB ABNRBC <0.01 k/uL Absolute nRBC <0.01 LAB DTYP DTYPE Auto Diff Performed By: #### PTT, CBCDIF #### [facility] [address] [place], [place] [address] SURGICAL PATHOLOGY Observed: 12/29/2017 Status: F Source: [place] 12:00 AM [facility] REPOSITORY Specimen #: [id number] Submitting Physician: RILEY BAUMANN ([id number]) FINAL DIAGNOSIS [place] kidney biopsy consultation: - 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 See comment. - Tubular atrophy and interstitial fibrosis, mild. BRYAN/elizabeth 12/30/2017 COMMENT Light microscopy unequivocally shows a focal proliferative glomerulonephritis with up to 4 glomeruli out of 29 sampled showing cellular or fibrocellular crescents and one additional glomerulus showing a more chronic lesion with a segmental scar and fibrous crescent. Focally prominent neutrophil accumulation is noted within areas of proliferation. Immunofluorescence reveals strong staining for IgM and C3 with lesser staining for multiple other reactants. The strong staining for IgM (which does not appear to be artifactual) would preclude the diagnosis of C3 nephropathy. Instead, IgM staining of this type, in combination with crescentic glomerulonephritis has been described in infection-related glomerulonephritis (see Estefanía et al AJKD 63:1060-65, 2014). Given the finding of low C3, the finding of focal lymphadenopathy and the multiple borderline positive serologic findings such as mild MPO and dsDNA would all suggest a potential underlying infectious etiology. Specifically, correlation to exclude Bartonella infection, which can involve cardiac prosthesis and produce lymphadenopathy and be essentially undetectable on routine blood cultures should be performed. Also potentially in the differential diagnosis, given the positive dsDNA serology would be lupus nephritis, though it would be highly unusual for IgM to predominate over IgG in this setting. Results were discussed with Dr. Candelario of [facility] Nephrology at 1:30 p.m. on 12/30/2017. Roberto Salazar MD (Electronic Signature) SPECIMEN SUBMITTED A: 42 SLIDES (INCLUDING 7 USS) [id number] & 9 EM PHOTOS MICROSCOPIC DESCRIPTION Materials for review consist of glass slides stained with H&E, PAS, trichrome, Christopher and congo red, as well as an immunofluorescence panel and several electron microscopy xeroxed images. Slides reveal multiple cores of renal cortex and medulla. Approximately 29 glomeruli are sampled, 4 of which are globally sclerotic. One glomerulus displays a segmental lesion of sclerosis associated with an old fibrous crescent. Among the remaining glomeruli, 4 display segmental involvement by cellular or fibrocellular crescents. PAS and Christopher stains highlight focal ruptures in the glomerular basement membrane and accumulation of cells, including neutrophils, in Zaidi's space. Several additional glomeruli display segmental margination of leukocytes, including focally prominent neutrophils, within glomerular capillaries. Trichrome staining shows no more than mild fibrosis. There is a patchy tubulointerstitial inflammatory infiltrate composed predominantly of mononuclear leukocytes, focally with admixed neutrophils. Vessels display mild arterio- and arteriolosclerosis but no evidence of arteritis. Immunofluorescence slides stained with IgG, IgA, IgM, C3, C1q, kappa, lambda, fibrinogen and albumin are available for review. Up to 8 glomeruli are sampled, 1 of which is globally sclerotic. There are granular mesangial and focal capillary wall deposits that stain 1+ for IgG, trace for IgA, 3+ for IgM and C3, 1+ for C1q, 2+ for kappa and 1+ for lambda. Fibrinogen and albumin staining is negative or nonspecific. The digital electron microscopy images provided are somewhat difficult to read due to print quality. However, rare ill-defined electron densities were noted in the mesangium but no significant peripheral capillary wall immune deposition is seen. Podocyte foot process effacement appears to be at least moderate. Laboratory Developed Test (LDT) Disclaimer: Positive and negative controls stain appropriately. Performance characteristics of immunohistochemical, immunofluorescent and chromogenic in-situ hybridization tests have been determined by [facility] Medicine [place] ([facility]) in a manner consistent with CLIA requirements. One or more of these tests have not been cleared or approved by the FDA. [facility] is regulated under CLIA as qualified to perform high-complexity testing. These tests are used for clinical purposes. They should not be regarded as investigational or for research. CLINICAL DATA A 62-YEAR-OLD MALE WITH HISTORY OF ATRIAL FIBRILLATION, AORTIC VALVE REPLACEMENT, PACEMAKER INSERTION AND CVA PRESENTS WITH ACUTE RENAL FAILURE. RECENTLY OCTOBER, CREATININE WAS NORMAL AND IS NOW 4.1. RENAL BIOPSY WAS PERFORMED AT AN OUTSIDE HOSPITAL AND REVIEW OF THE RESULTS IS REQUESTED BY DR. GOPAL DARLING OF [facility] NEPHROLOGY. SEROLOGIC WORKUP IS NOTABLE FOR A LOW C3, POSITIVE ANCA WITH A MILD INCREASE IN MPO, NEGATIVE FATOU, NEGATIVE DULCE, POSITIVE PETAR, POSITIVE DOUBLE-STRANDED DNA, AND CRYOGLOBULINS OF 216. BLOOD CULTURES HAVE BEEN NEGATIVE THUS FAR. HIV, HEPATITIS B AND HEPATITIS C ARE NEGATIVE. CT OF THE ABDOMEN SHOWS WHAT APPEARS TO BE AN ENLARGED LYMPH NODE NEAR THE CELIAC AXIS. THE PATIENT IS NOW REQUIRING RENAL REPLACEMENT THERAPY DUE TO HYPERVOLEMIA. Date of Report: 12/31/2017 Date of Procedure: 12/29/2017 Date of Receipt: 12/30/2017 Submitted by: RILEY BAUMANN ([id number]) Location: H Diagnostic interpretation performed at [facility], [address] [place], [place] [id number]. CBC AND DIFFERENTIAL Collected: 12/28/2017 Status: F Source: [place] 6:45 PM [facility] REPOSITORY TYPE CODE TESTS RESULT OUT OF REFERENCE UNITS RANGE LAB WBC 3.70-11.00 k/uL WBC 3.83 LAB RBC 4.20-6.00 m/uL Low RBC 2.42 LAB HGB 13.0-17.0 g/dL Low Hemoglobin 7.3 LAB HCT 39.0-51.0 % Low Hematocrit 22.2 LAB MCV 80.0-100.0 fL MCV 91.7 LAB MCH 26.0-34.0 pG MCH 30.2 LAB MCHC 30.5-36.0 g/dL MCHC 32.9 LAB RDWCV 11.5-15.0 % RDW-CV High 18.0 LAB PLTCT 150-400 k/uL Low Platelet Count 59 Result Comment: Result checked and verified No clot detected. LAB MPV 9.0-12.7 fL MPV 10.6 LAB ANEUT % Neut% 70.1 LAB AANEUT 1.45-7.50 k/uL Abs Neut 2.67 LAB ALYMP % Lymph% 23.8 LAB AALYMP 1.00-4.00 k/uL Abs Low Lymph 0.91 LAB AMONO % Pope% 5.5 LAB AAMONO <0.87 k/uL Abs Pope 0.21 LAB AEOS % Eosin% 0.3 LAB AAEOS <0.46 k/uL Abs Eosin <0.03 LAB ABASO % Baso% 0.3 LAB AABASO <0.11 k/uL Abs Baso <0.03 LAB AUNRBC 0 /100 WBC NRBCs 0.0 LAB ABNRBC <0.01 k/uL Absolute nRBC <0.01 LAB DTYP DTYPE Auto Diff Performed By: #### CBCDIF #### [facility] [address] [place] [address] CONSULT PROG Observed: 12/28/2017 Status: COMPLETED Source: [place] 3:51 PM [facility] RE[facility] HNO ID: [id number] Author: Montana Gonzalez Service: General Surgery Author Type: Resident Type: Consult Progress Note Filed: 12/28/2017 5:04 PM Note Text: General Surgery Progress Note Name: Frank Rivera Subjective Interval update: Overall, patient is doing well. Patient continues to have persistent anemia refractory to blood transfusions., hematology consulted for autoimmune hemolytic anemia, they recommended recommend LN excisional biopsy to r/o lymphoproliferative disorder. -Patient reports no nausea/ vomiting, fever/chills, chest pain, shortness of breath, or other symptoms. CT abd pelvis (12/27) showed 3.3 x 2.9 cm round low-attenuation structure to the right of the celiac Objective Physical exam: BP 131/76 Pulse 99 Temp 36.8 ?C (98.2 ?F) (Oral) Resp 17 Ht 193 cm (6' 3.98) Wt 103.2 kg (227 lb 8.2 oz) SpO2 95% BMI 27.71 kg/m? - General: Patient is resting comfortably on exam, not in any distress and is pleasant and cooperative. - Neuro: alert and oriented x3 - Abdomen: soft, non tender, non distended. - Chest: Non-labored, symmetrical respirations. - CVS: Pulse RRR, tachycardic Date 12/27/17 1500 - 12/28/17 0659 12/28/17 0700 - 12/29/17 0659 Shift 1093-2753 2236-5474 24 Hour Total 7027-1971 3663-4470 4356-9462 24 Hour Total I N T A K E PO 300 300 450 450 PO 300 300 450 450 IV 155 155 NS 0.9% 155 155 Shift Total 300 155 455 450 450 O U T P U T Urine 578 713 8379 260 260 Void (ml) 0 0 Tube Output ( Indwelling Urinary Catheter 12/25/17 Assessment [place]) 586 680 8308 260 260 # of BMs Number of BMs 0 x 0 x 0 x 0 x 0 x Dialysis 235 398 633 Dialysis Output (Ultrafiltration) 235 398 633 Shift Total 186 414 8949 260 260 Weight (kg) 101 103.2 103.2 103.2 103.2 103.2 103.2 Medications: Current hospital medications: acetaminophen 650 mg tab(s) (TYLENOL) 650 mg ORAL/FEEDING TUBE q 6 H PRN acetaminophen 650 mg suppository (TYLENOL) 650 mg RECTAL q 6 H PRN senna-docusate 8.6-50 mg 1 tablet (SENNA-S) 1 tablet ORAL/FEEDING TUBE BID polyethylene glycol 3350 17 g packet (MIRALAX, GLYCOLAX) 17 g ORAL DAILY sodium bicarbonate 650 mg tab(s) 650 mg ORAL TID docusate sodium 100 mg cap(s) (COLACE) 100 mg ORAL BID 0.9% NaCl 2-10 mL 2-10 mL INTRAVENOUS PRN sodium citrate 4% 3-6 mL catheter lock 3-6 mL INTRALUMINAL PRN phosphorus 500 mg tab(s) (K PHOS NEUTRAL) 500 mg ORAL/FEEDING TUBE PRN sodium phosphate 15 mmol in D5W 250 mL 15 mmol INTRAVENOUS PRN sodium phosphate 30 mmol in D5W 250 mL 30 mmol INTRAVENOUS PRN sodium phosphate 45 mmol in D5W 250 mL 45 mmol INTRAVENOUS PRN 0.9% NaCl 3-5 mL 3-5 mL INTRAVENOUS q 12 H tamsulosin ER 0.4 mg cap(s) (FLOMAX) 0.4 mg ORAL DAILY 0.9% NaCl 3-5 mL 3-5 mL INTRAVENOUS q [address] 40 mg tab(s) (PROTONIX) 40 mg ORAL BID levothyroxine 200 mcg tab(s) (SYNTHROID) 200 mcg ORAL BEFORE BREAKFAST DAILY atorvastatin 80 mg tab(s) (LIPITOR) 80 mg ORAL AT BEDTIME Labs CBC CBC Recent Labs 12/27/17231712/27/173 12/26/17215512/26/17 1754 WBC 3.03* 3.34* 3.35* 3.62* HB 7.1* 8.1* 5.6* 7.1* HCT 21.8* 24.9* 17.3* 22.2* PLT 63* 82* 73* 78* BMP Recent Labs 12/27/17231712/26/17215512/26/17 1750 12/26/17 1342 NA 137 140 139 141 K 4.3 4.4 5.2* 5.4* CHLOR 110* 116* 112* 113* CO2 20* 15* 17* 16* BUN 52* 60* 68* 67* CREAT 4.50* 5.01* 5.43* 5.63* GLUC 81 96 81 73* CA 7.6* 7.1* 7.9* 8.4* LFT's Recent Labs 12/27/17231712/26/178 12/25/17 0649 12/24/17 1618 11/26/15 1110 TPROT 6.1* -- 7.0 7.6 5.9* ALB 1.9* -- -- 2.5* 3.0* ALT 22 -- -- 30 13 AST 32 -- -- 42* 10 ALKPHOS 141* -- -- 205* 72 TBILI 0.8 0.7 -- 0.8 0.6 Assessment/Plan Mr. Rivera is a 62 year old man with history of afib s/p PPM and DCCV, on apixaban, HTN, hypothyroid, aortic stenosis s/p bioprosthetic ACR and RUDY ligation, sick sinus syndrome, h/o CVA, retinal embolism, h/o Min-en-Y bypass, chronic iron deficiency anemia, UGIB (1997, 2014, 2015) who presented to OSH with several weeks of worsening fatigue and shortness of breath. Found to have acute kidney injury and throbocytopenia and anemia refractory to blood transfusions. General surgery initally consulted for spontaneous rectus sheath hematoma, which is stable on imaging and on exam. Patient remains hemodynamically stable however with persistent anemia refractory to blood transfusions, for which hemonc was consulted. Per Hemonc, recommend LN excisional biopsy to r/o lymphoproliferative disorder. PLAN: -No indication for emergent surgical intervention -plan for surgical excisional lymph node biopsy, date to be decided -routine preop labs -patient consented -regarding rectus hematoma, if there is any concern for active bleeding, consider getting IR involved for localization/embolization -continue care per primary Patient discussed with ACS team SIGNATURE: Montana Gonzalez MD PATIENT NAME: Frank Rivera DATE: December 28, 2017 TIME: 3:52 PM PAGER/CONTACT #: [phone] CBC AND DIFFERENTIAL Collected: 12/28/2017 Status: F Source: [facility] 1:55 PM [facility] REPOSITORY TYPE CODE TESTS RESULT OUT OF REFERENCE UNITS RANGE LAB WBC 3.70-11.00 k/uL Low WBC 3.39 LAB RBC 4.20-6.00 m/uL Low RBC 2.36 LAB HGB 13.0-17.0 g/dL Low Hemoglobin 7.1 LAB HCT 39.0-51.0 % Low Hematocrit 21.8 LAB MCV 80.0-100.0 fL MCV 92.4 LAB MCH 26.0-34.0 pG MCH 30.1 LAB MCHC 30.5-36.0 g/dL MCHC 32.6 LAB RDWCV 11.5-15.0 % RDW-CV High 18.1 LAB PLTCT 150-400 k/uL Low Platelet Count 66 Result Comment: No clot detected. LAB MPV 9.0-12.7 fL MPV 10.9 LAB ANEUT % Neut% 70.8 LAB AANEUT 1.45-7.50 k/uL Abs Neut 2.39 LAB ALYMP % Lymph% 22.1 LAB AALYMP 1.00-4.00 k/uL Abs Low Lymph 0.75 LAB AMONO % Pope% 6.8 LAB AAMONO <0.87 k/uL Abs Pope 0.23 LAB AEOS % Eosin% 0.3 LAB AAEOS <0.46 k/uL Abs Eosin <0.03 LAB ABASO % Baso% 0.0 LAB AABASO <0.11 k/uL Abs Baso <0.03 LAB AUNRBC 0 /100 WBC NRBCs 0.0 LAB ABNRBC <0.01 k/uL Absolute nRBC <0.01 LAB DTYP DTYPE Auto Diff Performed By: #### CBCDIF #### [facility] [address] [place] [id number] CONSULT PROG Observed: 12/28/2017 Status: COMPLETED Source: [place]AN[place] 1:36 PM [facility] REPOSITORY HNO ID: [id number] Author: Adry Greer Service: Hematology Author Type: Physician Type: Consult Progress Note Filed: 12/28/2017 3:22 PM Note Text: [facility] Inpatient Consult Progress Note PATIENT NAME: Frank Rivera ATTENDING PHYSICIAN: Dr. Greer DATE OF SERVICE: December 28, 2017 Reason for consultation: Concern for autoimmune hemolytic anemia INTERVAL HISTORY: No acute events overnight, HDS Undergoing HD Says there didn't seem to be a lot of bleeding/oozing with line placement No new complaints HISTORY OF PRESENT ILLNESS: Mr. Rivera is a 62 year old man with history of afib s/p PPM and DCCV, on apixaban, HTN, hypothyroid, aortic stenosis s/p bioprosthetic ACR and RUDY ligation, sick sinus syndrome, h/o CVA, retinal embolism, h/o Min-en-Y bypass, chronic iron deficiency anemia, UGIB (1997, 2014, 2015) who presented to OSH with several weeks of worsening fatigue and shortness of breath. PCP ordered a CBC which was notable for Hgb ~7.5. He was admitted to OSH for further work up. On presentation he was noted to have guaiac pos stool and IRINA with Cr 4.12/BUN 70. He underwent GI work up with EGD, colonoscopy, and tagged RBC scan which were all negative. Renal function did not improve and he ultimately underwent a renal biopsy with prelim concerns for C3 nephropathy. A BMBX was also performed looking for plasma cell neoplasm given anemia and acute renal failure. Notable Labs at OSH on 12/23: CBC WBC 3.8, Hg 8.4, Plt 84 CMP Na 141, K 5.6, Chloride 119, CO2 17, BUN 60, Cr 3.71 Total protein 7 IgG 3273 H IgA 349 IgM 159 Albumin 2.4 Albmin/glboulin 0.6 Alpha 1 gloublins Lis 0.2 Alpha 2 globulins Lis 0.5 Beta glboluins Lis 0.87 Gamma globulins 4.6 (H) Complement C3 64 (L) Complement C4 17 Free [place] 402.7 (H) Free Lambda 378.8 (H) Free [place]/Lambda ratio 1.06 ? 12/24 labs: CBC shows WBC 3.2, Hg 7.8, Plt 80 CMP shows Na 141, K 5.3, CO2 17, Chlroide 118, BUN 61, Cr 4.07, Phosphorsu 5.5 Bone marrow biopsy (full results in patient record on nursing floor): Normocellular marrow with mild plasmacytosis. Iron-absent Peripheral blood-macrocytic anemia and thrombocytopenia. Flow cytometry study from [facility] shows no evidence for abnormal myeloid maturation or an increased blast population. There is no evidence for a lymphoproliferative disorder or plasma cell neoplasm. Cytogenetic studies are pending at this time. ? Kidney biopsy (full report in his patient record on nursing floor): -Glomeruli showing focal segmental mesangiolysis (3 of 28 glomeruli), vague nodularity (2 of 28 glomeruli) and a single cellular crescent (1 of 28 glomeruli). -Mild tubular injury. -Moderate interstitial fibrosis and tubular atrophy. -strong granular IgM and C3 staining on immunofluorescence, with weak granular staining for C1q and kappa and lambda light chains. -Electron microscopy with occasional, poorly definied electron- dense areas in mesangium. ? Patient reporting lower abd pain, more significant on Left lower quadrant which started today. Reports decreased urine output. Urine that he does make is tea colored, no cruz blood, non-foamy. He reports fluid retention and 10+lb weight gain since hospitalization. Denies recent tobacco or alcohol intake. 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 He has received 6U PRBC and 2U PLT transfusions at OSH prior to transfer. ROS: 01/03 reviewed and negative except as above ALLERGIES ALLERGIES Allergen Reactions - Penicillin Hives MEDICATIONS Current Facility-Administered Medications: acetaminophen 650 mg tab(s) (TYLENOL) 650 mg ORAL/FEEDING TUBE q 6 H PRN And acetaminophen 650 mg suppository (TYLENOL) 650 mg RECTAL q 6 H PRN senna-docusate 8.6-50 mg 1 tablet (SENNA-S) 1 tablet ORAL/FEEDING TUBE BID polyethylene glycol 3350 17 g packet (MIRALAX, GLYCOLAX) 17 g ORAL DAILY sodium bicarbonate 650 mg tab(s) 650 mg ORAL TID docusate sodium 100 mg cap(s) (COLACE) 100 mg ORAL BID 0.9% NaCl 2-10 mL 2-10 mL INTRAVENOUS PRN sodium citrate 4% 3-6 mL catheter lock 3-6 mL INTRALUMINAL PRN phosphorus 500 mg tab(s) (K PHOS NEUTRAL) 500 mg ORAL/FEEDING TUBE PRN Or sodium phosphate 15 mmol in D5W 250 mL 15 mmol INTRAVENOUS PRN Or sodium phosphate 30 mmol in D5W 250 mL 30 mmol INTRAVENOUS PRN Or sodium phosphate 45 mmol in D5W 250 mL 45 mmol INTRAVENOUS PRN 0.9% NaCl 3-5 mL 3-5 mL INTRAVENOUS q 12 H tamsulosin ER 0.4 mg cap(s) (FLOMAX) 0.4 mg ORAL DAILY 0.9% NaCl 3-5 mL 3-5 mL INTRAVENOUS q [address] 40 mg tab(s) (PROTONIX) 40 mg ORAL BID levothyroxine 200 mcg tab(s) (SYNTHROID) 200 mcg ORAL BEFORE BREAKFAST DAILY atorvastatin 80 mg tab(s) (LIPITOR) 80 mg ORAL AT BEDTIME PHYSICAL EXAMINATION: BP 127/73 Pulse 65 Temp 36.8 ?C (98.2 ?F) (Oral) Resp 20 Ht 193 cm (6' 3.98) Wt 103.2 kg (227 lb 8.2 oz) SpO2 96% BMI 27.71 kg/m? Intake/Output Summary (Last 24 hours) at 12/28/17 1336 Last data filed at 12/28/17 0800 Gross per 24 hour Intake 705 ml Output 1063 ml Net -358 ml General: Elderly man, sitting at edge of bed. In NAD HEENT: PERRLA, EOMI, anicteric sclera, MMM Neck: Supple Resp: No use of accessory muscles, non labored breathing Abd: Soft, LLQ with purple marking (by primary team) but no obvious bruising. Large hematoma is palpated. MSK: +edema, slightly improved from yesterday. Neuro: AAOx3, no acute focal deficits. Skin: Warm, dry, intact. No rashes. Lines without oozing. LABORATORY DATA Recent Labs 12/27/17 2318 12/27/17 0353 12/26/17 2156 12/26/17 1754 12/26/17 1229 WBC 3.03* 3.34* 3.35* 3.62* < > 4.00 RBC 2.35* 2.62* 1.78* 2.32* -- 2.62* HB 7.1* 8.1* 5.6* 7.1* -- 8.0* HCT 21.8* 24.9* 17.3* 22.2* -- 25.4* PLT 63* 82* 73* 78* -- 80* MCV 92.8 95.0 97.2 95.7 -- 96.9 MCH 30.2 30.9 31.5 30.6 -- 30.5 MCHC 32.6 32.5 32.4 32.0 -- 31.5 RDWCV 18.5* 18.4* 19.2* 19.1* -- 19.1* MPV 9.4 11.0 10.1 10.7 -- 10.2 NEUTP -- 68.0 -- 68.0 -- 69.7 ABSNEUT -- 2.26 -- 2.45 -- 2.77 LYMPHP -- 25.7 -- 24.3 -- 21.8 MONOP -- 6.3 -- 7.7 -- 8.5 EODINP -- 0.0 -- 0.0 -- 0.0 BASOP -- 0.0 -- 0.0 -- 0.0 ABSMONO -- 0.21 -- 0.28 -- 0.34 ABSEOSIN -- <0.03 -- <0.03 -- <0.03 ABSBASO -- <0.03 -- <0.03 -- <0.03 < > = values in this interval not displayed. Recent Labs 12/27/17231712/27/17200612/27/17 0353 12/26/17232712/26/17215512/26/17175212/26/17174912/26/17 1220 12/25/172153 NA 137 -- -- -- 140 -- 139 < > -- < > -- K 4.3 -- -- -- 4.4 -- 5.2* < > -- < > -- CHLOR 110* -- -- -- 116* -- 112* < > -- < > -- CO2 20* -- -- -- 15* -- 17* < > -- < > -- CREAT 4.50* -- -- -- 5.01* -- 5.43* < > -- < > -- BUN 52* -- -- -- 60* -- 68* < > -- < > -- GLUC 81 -- -- -- 96 -- 81 < > -- < > -- P 4.4 4.5 -- 6.2* 5.8* -- -- -- -- < > -- TPROT 6.1* -- -- -- -- -- -- -- -- -- -- ALB 1.9* -- -- -- -- -- -- -- -- -- -- MG -- 1.8 -- -- 1.8 -- -- -- -- -- -- CA 7.6* -- -- -- 7.1* -- 7.9* < > -- < > -- ALKPHOS 141* -- -- -- -- -- -- -- -- -- -- TBILI 0.8 -- -- 0.7 -- -- -- -- -- -- -- AST 32 -- -- -- -- -- -- -- -- -- -- ALT 22 -- -- -- -- -- -- -- -- -- -- URICACID -- -- -- -- -- -- -- -- 10.2* -- -- PTSEC -- -- -- -- 16.2* -- -- -- -- -- 16.0* INR -- -- -- -- 1.6* -- -- -- -- -- 1.6* APTT 36.5* -- 31.0 Blood/Anticoagulant Ratio in tube unsatisfactory. -- -- -- -- -- -- 38.7* DDMER -- -- -- -- -- 1,910* -- -- -- -- -- < > = values in this interval not displayed. PATHOLOGY: IMAGING: Reviewed in [facility] ASSESSMENT AND PLAN: Mr. Rivera is a 62 year old man with history of afib s/p PPM and DCCV, on apixaban, HTN, hypothyroid, aortic stenosis s/p bioprosthetic ACR and RUDY ligation, sick sinus syndrome, h/o CVA, retinal embolism, h/o Min-en-Y bypass, chronic iron deficiency anemia, UGIB (1997, 2014, 2015) who presented to OSH with several weeks of worsening fatigue and shortness of breath. Found to have acute kidney injury and throbocytopenia and anemia refractory to blood transfusions. Hematology consulted for autoimmune hemolytic anemia. - Smear reviewed. Notable for few schistocytes, yojana cells, rare spherocytes. Decreased platelets without clumping. Normal leukocytes. - CT a/p with rectus sheath hematoma. Pt denies any procedures or injections into abd. Unclear why he would develop a spontaneous hematoma without overt evidence of coagulopathy. - CT a/p and LE dopplers also showed LAD as noted above. Will need to r/o lymphoproliferative disorder. Overall picture seems mores consitent with an autoimmune process. Note, weakly positive FELICIA however eluate was negative. Given this, patient does not have autoimmune hemolytic anemia but rather likely has elevated immunoglobulins (? Due to autoimmune process). Recommendations: - CBC+diff daily - Will follow up flow cytometry, IgG, IgA, IgM, PNH, LDH, EPO - Recommend LN excisional biopsy. Agree with holding steroids for now while we purse biopsy to r/o lymphoproliferative process Patient seen and discussed with staff, Dr. Greer. Luciano Palmer MD Fellow, Hematology and Medical Oncology Pager: [phone] ATTENDING ATTESTATION: I have reviewed the data, obtained PMH, PFSH, and ROS, seen and examined the patient to confirm the findings and plan as outlined by Dr. Palmer except as specifically stated. Started CVVHD Fibrinogen low still with L abd pain from the hematoma Impression: Pancytopenia - counts remain low Hypofibrinogenemia - wonder about liver status as D-dimer and FDPs are not exceedingly high as one would expect for significant consumptive coagulopathy See comments from yesterday re: the FELICIA and eluate results. IgG elevated but others are normal epo inapproprtately normal at 16.9 LDH staying the same in the 340 range Plan: Node biopsy; holding prednisone Will f/u with you Adry Greer MD, FACP Staff [employer] Director Pager [phone] Date of Service 12/28/2017 Time of Service 3:03 PM THERAPY NT Observed: 12/28/2017 Status: COMPLETED Source: [place] 11:22 AM [facility] REPOSITORY HNO ID: [id number] Author: Laura Childs (Ot) Eduardo Service: Occupational Therapy Author Type: Occupational Therapist Type: Therapy (PT/OT/Speech/Resp) Filed: 12/28/2017 11:27 AM Note Text: Occupational Therapy Evaluation SERVICE DATE: 12/28/2017 SERVICE TIME: 834 to 947 ROOM: [place] [address] Recommended Discharge Disposition: Home OT Anticipated Discharge Needs: Physical Assist at Home Physical Assist at Home for: Transportation;Shopping;Safety;Meals;Laundry;Cleaning Recommended Discharge Equipment: To Be Determined OT Recommendations to Nursing: ADL?s in chair;Bedside Commode for Toileting;OOB for meals;With assist of 1 person OT 6 Clicks Score: 19 Precautions/Activity Restrictions: Lines/Tubes/Drains;Abdominal ASSESSMENT: Patient presents with impaired Balance, Coordination, Functional Mobility and Activity Tolerance and ADLs, impacting the ability to function without assistance from caregivers. Patient requires Min assist with all ADLs including Minimal: Verbal for safety. Pt also requires monitoring of vital signs due to fluctuations with activity and instructions/ education regarding safe activity dosing. Pt requires skilled therapy to address current functional limitations, identify coping skills to progress through current impairments as well as to increase independence with ADLs within safe limits. Recommending home OT to maximize independence within home setting. Patient Disposition at Start of Session: Supine in Bed Patient Disposition at End of Session: Supine in Bed Tolerated Full Session Occupational Therapy Problem List: Cognitive Deficit;Safety Deficits;Impaired Self Care;Decreased Activity Tolerance;Functional Mobility Impairment;Balance Impaired Patient /Caregiver Goals: Go Home Goals for Plan of Care: Grooming with: Modified Independent Upper Body Bathing with: Modified Independent Upper Body Dressing with: Modified Independent Lower Body Bathing with: Stand By Assistance Lower Body Dressing with: Stand By Assistance Toilet Hygiene with: Stand By Assistance Chair Transfer with: Supervision Toilet Transfer with: Supervision Tolerate (minutes of functional activity): 30 Functional Activity with: Supervision Demonstrate Positive Coping Strategies with: Modified Independent Demonstrate Competence With Education with: Modified Independent Progress Toward Goals: Progressing as expected Rehab Potential: Good PLAN: Treatment Frequency (times per week): 2 Current admission Treatment Interventions: Education;Self Care / Home Management;Energy Conservation Training;Functional Mobility Training;Balance Training;Cognitive Training Plan of Care developed with: Patient TREATMENT INTERVENTIONS: Therapy Diagnosis: Decreased activities of daily living (ADL) Interventions Provided: Evaluation;Therapeutic Activity (65708);Self Halfway Management (77069);Cognitive Training (80519 or G0515) $ Evaluation-Moderate (96869) Billed Units: 1 unit Therapeutic Activity (19620) Treatment Minutes: 15 1 unit Skilled Intervention(s): Instructed patient in supine to sit pushing with upper extremities to sit up with cues provided for reaching across midline to assist with transfer. Increased cues provided for positioning and increasing safe bed mobility to sit upright to EOB. Increased cues provided for balance and safety. Pt required skilled assist w/ management of lines/ICU equipment and room setup, including bed functions to ensure safety and facilitate participation in ADL tasks/functional activities. Required skilled management of vitals in response to activity and management of vital equipment during all tasks. Instruction in sit to stand technique with proper hand placement and body positioning at edge of bed/chair with cues provided for line safety and hand placement when standing and completion of lateral steps to HOB. Cues provided for safety and activity pacing while upright. Self Halfway Management (11279) Treatment Minutes: 23 2 units Skilled Intervention(s): Provided cuing for hand/oral hygiene with cues provided for task completion and safety when sitting upright. Cues for sequencing in hygiene tasks with increased tactile assist provided for task completion. Education provided for importance of promoting independence to tolerance within hospital setting with ADL tasks. Pt verbalized understanding. Cognitive Training (G0515) Treatment Minutes (2018 Only): 15 $ Cognitive Training (G0515) Billed Units (2018 Only): 1 unit Skilled Intervention(s):Therapeutic use of self provided for coping mechanisms with increased time provided for active listening and emotional support as needed. Increased time provided for feedback and finding purposeful tasks to complete within hospital setting. Pt verbalized understanding. Total Timed Code Treatment Minutes: 53 Total Treatment Time (minutes): 78 FUNCTIONAL G CODE: OT 6 Clicks Score: 19 (12/28/17834) Self Care Current Status (G8987): CK (12/28/17834) Self Care Goal Status (G8988): CJ (12/28/17834) Based on clinical assessment and the score on the 6 Clicks Functional Assessment Tool, the G code and corresponding severity modifiers are documented above. SUBJECTIVE: Current Hospital Course: Chart reviewed; 62y male with nml baseline cr october 0.9, now returns 12/14/17 with complaints of fatigue without rash, neuro, rheum, oral ulcers, found to be anemic, GI eval wihtout source, + hemolysis, multiple pRBC transfusions locally, IRINA with cr 4.1 on admission and essentially stable since then, renal Bx /28, without definitive diagnosis, by report. Also with Bone marrow bx. 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) OBJECTIVE: Responsiveness: Alert;Awake Follows Commands: 3-step Commands Executive Function Deficits: Safety Awareness Safety Awareness Deficit: Minimal impairment Mini Cog Score: 5 (12/28/17834) CURRENT FUNCTIONAL STATUS: Current Activities of Daily Living Assist Level Feeding Set Up Grooming Set Up Bathing Upper Body Stand By Assistance Bathing Lower Body Moderate Assistance Dressing Upper Body Stand By Assistance Dressing Lower Body Moderate Assistance Toileting Moderate Assistance Functional Mobility Assist Level Rolling Supine to Sit Minimal Assistance Sit to Supine Minimal Assistance Scooting Minimal Assistance Sit to Stand Contact Guard Assistance Stand to Sit Contact Guard Assistance Functional Mobility Contact Guard Assistance (lateral stepping) Hand Held Assist Balance: Static Sitting;Dynamic Sitting;Static Standing;Dynamic Standing Static Sitting Balance: Independent Dynamic Sitting Balance: Supervision Static Standing Balance: Stand By Assistance Dynamic Standing Balance: Stand By Assistance Activity Tolerance: Sitting Activity Sitting Activity: unsupported at EOB Sitting Activity Tolerance (in minutes): 15 Please see discipline specific clinical documentation flowsheet for complete details for this therapy evaluation/treatment. SIGNATURE: Laura Clark OTR/L PATIENT NAME: Frank Rivera DATE: December 28, 2017 TIME: 11:22 AM CONSULT PROG Observed: 12/28/2017 Status: COMPLETED Source: [place] 9:56 AM [facility] REPOSITORY O ID: [id number] Author: Cedric Edward MD Service: Nephrology Author Type: Physician Type: Consult Progress Note Filed: 12/28/2017 10:22 AM Note Text: NEPHROLOGY PROGRESS NOTE INTERVAL HISTORY: Dialysis line placed yesterday Started on CVVHD @3 pm, running well, no clots UO 1L, UF 633 cc Vital Signs; BP 127/73 Pulse 65 Temp 36.7 ?C (98.1 ?F) (Oral) Resp 20 Ht 193 cm (6' 3.98) Wt 103.2 kg (227 lb 8.2 oz) SpO2 96% BMI 27.71 kg/m? General appearance: Well appearing, alert, in no acute distress, Eyes: Anicteric sclera. PERRLA, EOMI Oropharynx: normal Neck: Supple, no adenopathy Lungs: Lungs clear to auscultation. No wheezing, rhonchi, rales Heart: RRR without murmur, gallop, or rubs. Abdomen: soft, mild tenderness, left sided hematoma. Bowel sounds normal. Extremities: No deformities, edema, skin discoloration Peripheral pulses: Normal Neuro: Non focal Intake/Output Summary (Last 24 hours) at 12/28/17 0956 Last data filed at 12/28/17 0800 Gross per 24 hour Intake 705 ml Output 1513 ml Net -808 ml Labs: CBC: Recent Labs 12/27/17 2318 12/27/17 0353 12/26/17 2156 12/26/17 1754 12/26/17 1751 12/26/17 1229 12/26/17 0529 12/25/17 2329 12/25/17 1718 12/25/17 0649 12/24/17 1907 12/24/17 1618 WBC 3.03* 3.34* 3.35* 3.62* 3.59* 4.00 2.68* -- 3.86 4.05 3.12* 3.28* HB 7.1* 8.1* 5.6* 7.1* -- 8.0* 6.8* 7.2* 8.4* 8.6* 8.8* 8.6* HCT 21.8* 24.9* 17.3* 22.2* -- 25.4* 22.4* 23.2* 26.3* 26.9* 27.6* 27.2* PLT 63* 82* 73* 78* -- 80* 71* -- 84* 86* 84* 90* MCV 92.8 95.0 97.2 95.7 -- 96.9 100.4* -- 98.1 97.8 96.5 97.5 RDWCV 18.5* 18.4* 19.2* 19.1* -- 19.1* 19.1* -- 19.8* 19.6* 19.7* 19.6* NEUTP -- 68.0 -- 68.0 -- 69.7 77.6 -- -- 71.1 72.7 75.0 LYMPHP -- 25.7 -- 24.3 -- 21.8 19.4 -- -- 21.0 23.1 22.0 MONOP -- 6.3 -- 7.7 -- 8.5 3.0 -- -- 7.9 4.2 3.0 EODINP -- 0.0 -- 0.0 -- 0.0 0.0 -- -- 0.0 0.0 0.0 COAG: Recent Labs 12/27/17231712/27/17 0353 12/26/17232712/26/17215512/25/172153 APTT 36.5* 31.0 Blood/Anticoagulant Ratio in tube unsatisfactory. -- 38.7* INR -- -- -- 1.6* 1.6* BNP: Recent Labs 12/27/17231712/27/17200612/26/17232712/26/17215512/26/17174912/26/17134112/26/1752812/25/17232812/25/1764812/24/17231812/24/17 161 GLUC 81 -- -- 96 81 73* 108* -- 84 -- 117* NA 137 -- -- 140 139 141 138 -- 136 -- 137 K 4.3 -- -- 4.4 5.2* 5.4* 5.7* 5.6* 5.4* 5.4* 5.6* CHLOR 110* -- -- 116* 112* 113* 114* -- 110* -- 110* CO2 20* -- -- 15* 17* 16* 13* -- 14* -- 16* ANION 7* -- -- 9 10 12 11 -- 12 -- 11 BUN 52* -- -- 60* 68* 67* 69* -- 64* -- 62* CREAT 4.50* -- -- 5.01* 5.43* 5.63* 4.79* -- 4.52* -- 4.29* P 4.4 4.5 6.2* 5.8* -- -- 6.7* -- -- -- -- CHEM: Recent Labs 12/27/17231712/27/17200612/26/17215512/26/17174912/26/17134112/26/1729 12/25/1749 12/24/171617 ALB 1.9* -- -- -- -- -- -- 2.5* TPROT 6.1* -- -- -- -- -- 7.0 7.6 CA 7.6* -- 7.1* 7.9* 8.4* 8.0* 7.9* 8.2* MG -- 1.8 1.8 -- -- -- -- -- HEPATIC: Recent Labs 12/27/17231712/26/17232712/24/171617 ALKPHOS 141* -- 205* ALT 22 -- 30 AST 32 -- 42* TBILI 0.8 0.7 0.8 ASSESSMENT AND PLAN: 62y male with nml baseline cr october 0.9, now returns 12/14/17 with complaints of fatigue without rash, neuro, rheum, oral ulcers, found to be anemic, GI eval wihtout source, + hemolysis, multiple pRBC transfusions locally, IRINA with cr 4.1 on admission and essentially stable since then, renal Bx /28, without definitive diagnosis, by report. Also with Bone marrow bx. 1. 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 Reviewed report with pathology- trying to obtain path slides for formal review. C3 low, ANCA +, mild increase in MPO, FATOU-, petar +. Blood cultures -ve, HIV/HepB/HepC -ve. Echo without vegatation. CT abd with hematoma L rectus Cryoglobulins, antiENA, ds DNA - all in process Serum uric acid 10.2 LIJ NTDC placed 12/27, started on CVVHD 2. Electrolytes: Hyperkalemia - improved 3. Volume status: Euvolemic 4. Acid-base: NAGMA 5. Bone mineral disease (Ca/P/PTH): elevated phos, on sevelamer Plan: Hold CVVHD today once filter expires Can be transferred to floor and get IHD in Q6 as needed Stop bicarbonate while being on dialysis Would hold prednisone at this time. Continue with sevelamer 800mg PO QAC. Review of path slides pending. Strict I/O's Daily weights Renal diet Dose medications for eGFR <10 mL/min Janessa Sheikh MD Nephrology AND Hypertension Fellow, PGY4 Pager [phone] December 27, 2017 9:21 AM TEACHING PHYSICIAN NOTE OF PERSONAL INVOLVEMENT IN CARE I have reviewed the Progress Note obtained and documented by Dr. Sheikh and I personally participated in the hernandez components. I have discussed the case and management of the patient's care and I agree with the formulated assessment and plan. In addition to above note: 62 yoM w h/o obesity s/p gastric bypass 1995, hypertension, atrial fibrillation on AC, hypothyroidism, severe s/p AVR 04/2017 and sick sinus Sd s/p PPM admitted with fatigue, found to be hemolyzing with anemia and acute renal failure. #. Acute renal failure - No h/o CKD - baseline SCr ~ 0.9-1 - Etiology: uncertain; ? TMA - awaiting biopsy slides to review here - Serologies: C3 low, ANCA + mild increase in MPO, fatou-, petar +. - UPC 1.4 grams. #. Active diagnoses: - Lt rectus sheath hematoma - Anemia / ? Hemolysis vs. Blood loss RECS: Seen and examined on dialysis - prescription reviewed and confirmed - UF increased to 200 /hr - Keeping on CRRT for volume removal until patient is ready for transfer to [facility]. Awaiting renal biopsy slides. Cedric Edward MD, FASN - Pager [phone] December 28, 2017 @ 10:21 AM [facility] PANEL BY FCM Collected: 12/28/2017 Status: F Source: [place] 8:00 AM [facility] REPOSITORY TYPE CODE TESTS RESULT OUT OF RANGE REFERENCE UNITS LAB PNHINT Negative. No P[facility] clone Interpretation Abnormal detected. Account Alert Credited Result Comment: Unable to assay. No specimen received. Unable to quantitate due to age of specimen. DR.SARAH PALMER NOTIFIED ON [id number] AT 0900. NEW SPECIMEN REQUESTED FOR TESTING. Performed By: #### PNHPNL #### [facility] [address] [place] [address] PROGRESS Observed: 12/28/2017 Status: COMPLETED Source: [place] 7:29 AM [facility] REPOSITORY HNO ID: [id number] Author: Vanessa Thomas MD Service: Critical Care Author Type: Physician Type: Progress Notes Filed: 12/28/2017 11:22 AM Note Text: MICU PROGRESS NOTE WITH [facility] Primary Service: Be[place] SERVICE DATE: 12/28/2017 SERVICE TIME: 7:30 AM Admission Date: 12/24/2017 Day #: 2 in the MICU. INTERVAL HISTORY: No acute overnight events. Patient currently on dialysis. He complained of chills overnight. States that he still feels LLQ abdominal pain from the rectus sheath hematoma. Denies any blood in his stools (no BM in 3 days). Pertinent physical: Murmur heard best at right upper sternal border, systolic Vent issues: N/A Drips: N/A Pertinent labs: Drop in hemoglobin from 8.1 to 7.1 Micro: N/A Imaging: CXR on 12/27: ?Bilateral effusions and overlying opacity similar to prior. No pneumothorax. PLAN FOR THE DAY: - No evidence of GI bleed, possible increase in size of hematoma - Nephrology following, appreciate recommendations. 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 Reviewed report with pathology- trying to obtain path slides for formal review. C3 low, ANCA + mild increase in MPO, fatou-, petar +. Broad differential ? PLAN: - Appreciate Nephrology Recs: - DULCE panel normal - Cryoglobulin and DS DNA antibody pending - hold preednisone at this time - sevelamer 800mg PO QAC - Uric acid = elevated at 10.2 # Hyperkalemia: Initial admission K+ of 5.6 current 5.4 ? ? PLAN: Appreciate Nephrology Recs Will initiate Dialysis HEMATOLOGY: # Rectus sheath hematoma: - moderate LEFT rectus sheath hematoma - measuring 7.1 x 5.2 x 19 cm - Surgery following ? PLAN: - Appreciate Surgery Recs: -No indication for emergent surgical intervention -Check CBC Q6 h, transfuse PRN - There was a drop in hgb from 8.1 to 7.1 -If there is any concern for active bleeding, consider getting IR involved for localization/embolization - Check abdominal US # Anemia: Hx of iron deficient anemia and B12 deficiency BM biopsy: Normocellular marrow with mild plasmacytosis. Iron-absent Peripheral blood-macrocytic anemia and thrombocytopenia. Flow cytometry study from [facility] shows no evidence for abnormal myeloid maturation or an increased blast population. There is no evidence for a lymphoproliferative disorder or plasma cell neoplasm. ? Smear reviewed. Notable for few schistocytes, yojana cells, rare spherocytes. Decreased platelets without clumping. Normal leukocytes ? Reticulocyte count: 2.4(elevated) Haptoglobin:<10 (low) PT/INR:16/1.6 (elevated) PTT:38.7 (elevated) Ferritin:422(wnl) Iron: 140 (wnl) TIBC:<157 (low) Transf Sat:>89 (high) Urine prot:124(elevated) Alpha1/2 beta, gamma, glob: wnl [place]:464.1(elevated) [place]:343(eleated) K/l Ratio1.35(wnl) ? Most recent Hgb: 7.1 decreased from 8 Still not completely known cause: Hemolytic vs active bleed? ? PLAN: Appreciate Hematology recs: Elevated LDH with suppressed haptoglobin Fibrinogen 115, D-dimer 1910 Will check flow cytometry, IgG, IgA, IgM, PNH, LDH (ordered) Agree with holding steroids for now while we pursue biopsy to r/o lymphoproliferative process Check EPO, pending Will follow up on eluate of FELICIA - give IV ferrlicet 125 mg daily x 5 days - ABD WALL U/S Repeat Hapto, Coags, get TEG # Thrombocytopenia: Plts: 63 Shistocytes seen on Peripheral smear, BMbx: normocellular ? Possible Consumptive process w/ hemolytic anemia ? PLAN: Appreciate Hematology recs CV: # Afib: Previously on Eliquis, ?s/p PPM and DCCV in 04/2017 ChadsVASC:4 ? PLAN: Hold BP meds, and (AC) Eliquis for recent Hematoma # H/O CVA: Hx of Dysphagia Currently NPO ? PLAN: 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 # CAD: S/p CABG and AVReplacement ? 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 PLAN: Heme following Appreciate rec Recommend Biopsy, r/o Lymphoproliferative disease OBJECTIVE: VITAL SIGNS (last 24hrs min/max): Temp Av.6 ?C (97.8 ?F) Min: 36.3 ?C (97.3 ?F) Max: 36.9 ?C (98.4 ?F) Pulse Av.9 Min: 64 Max: 106 No Data Recorded Cuff BP Min: 116/70 Max: 159/77 Pain Score: 0/10 BP 128/75 Pulse 100 Temp 36.4 ?C (97.6 ?F) (Oral) Resp 21 Ht 193 cm (6' 3.98) Wt 103.2 kg (227 lb 8.2 oz) SpO2 95% BMI 27.71 kg/m? NET FLUID BALANCE Intake/Output Summary (Last 24 hours) at 12/28/17 0730 Last data filed at 12/28/17 0600 Gross per 24 hour Intake 455 ml Output 1683 ml Net -1228 ml MEDICATIONS Hospital/inpatient medications reviewed INDWELLING CATHETERS: Day 1 of dialysis triple lumen catheter at right neck (12/27) indwelling herring catheter (12/25) HEENT: Oral Mucosa: Moist mucous membranes Feeding Tube: No Eyes: PERRLA Neck: Unremarkable; No adenopathy or JVD Cardiovascular: Murmur Systolic and RUSB Relevant Hemodynamic Data: N/A Respiratory: Clear to auscultation Supplemental Oxygen: Yes. 2 L NC Abdomen: Soft and Tender at LLQ on deep palpation Extremities: Edema- No Peripheral Pulses- Present all extremities Skin: Abnormalities- Please refer to nursing documentaion Neurologic: Awake, oriented NUTRITION: Renal diet Enteral Feeds: No DATA: Laboratory: CBC: Recent Labs 12/27/17 2318 12/27/17 0353 12/26/17 2156 12/26/17 1754 12/26/17 1751 12/26/17 1229 12/26/17 0529 12/25/17 2329 12/25/17 1718 12/25/17 0649 WBC 3.03* 3.34* 3.35* 3.62* 3.59* 4.00 2.68* -- 3.86 4.05 HB 7.1* 8.1* 5.6* 7.1* -- 8.0* 6.8* 7.2* 8.4* 8.6* HCT 21.8* 24.9* 17.3* 22.2* -- 25.4* 22.4* 23.2* 26.3* 26.9* PLT 63* 82* 73* 78* -- 80* 71* -- 84* 86* MCV 92.8 95.0 97.2 95.7 -- 96.9 100.4* -- 98.1 97.8 RDWCV 18.5* 18.4* 19.2* 19.1* -- 19.1* 19.1* -- 19.8* 19.6* NEUTP -- 68.0 -- 68.0 -- 69.7 77.6 -- -- 71.1 ABSNEUT -- 2.26 -- 2.45 -- 2.77 2.06 -- -- 2.88 LYMPHP -- 25.7 -- 24.3 -- 21.8 19.4 -- -- 21.0 MONOP -- 6.3 -- 7.7 -- 8.5 3.0 -- -- 7.9 EODINP -- 0.0 -- 0.0 -- 0.0 0.0 -- -- 0.0 COAG: Recent Labs 12/27/17231712/27/17 0353 12/26/17232712/26/17215512/25/17 215 APTT 36.5* 31.0 Blood/Anticoagulant Ratio in tube unsatisfactory. -- 38.7* INR -- -- -- 1.6* 1.6* BMP: Recent Labs 12/27/17231712/26/17215512/26/17 1750 12/26/17 1342 12/26/17 0529 12/25/17 23212/25/17 0649 12/24/17 23112/24/17 1618 GLUC 81 96 81 73* 108* -- 84 -- 117* NA 137 140 139 141 138 -- 136 -- 137 K 4.3 4.4 5.2* 5.4* 5.7* 5.6* 5.4* 5.4* 5.6* CHLOR 110* 116* 112* 113* 114* -- 110* -- 110* CO2 20* 15* 17* 16* 13* -- 14* -- 16* ANION 7* 9 10 12 11 -- 12 -- 11 BUN 52* 60* 68* 67* 69* -- 64* -- 62* CREAT 4.50* 5.01* 5.43* 5.63* 4.79* -- 4.52* -- 4.29* CHEM: Recent Labs 12/27/17231712/27/17 2007 12/26/17 2156 12/26/17 1750 12/26/17 1342 12/26/17 0529 12/25/17 0649 12/24/17 1618 ALB 1.9* -- -- -- -- -- -- 2.5* TPROT 6.1* -- -- -- -- -- 7.0 7.6 CA 7.6* -- 7.1* 7.9* 8.4* 8.0* 7.9* 8.2* MG -- 1.8 1.8 -- -- -- -- -- HEPATIC: Recent Labs 12/27/17 2318 12/26/17 2328 12/24/17 1618 ALKPHOS 141* -- 205* ALT 22 -- 30 AST 32 -- 42* TBILI 0.8 0.7 0.8 URINALYSIS: Recent Labs 12/24/17 1720 SPGR 1.013 UGLUC Negative UBILI Negative UKET Negative UHB 3+* UPROT 100* UWBC >25* CARDIAC: Recent Labs 12/26/17 1754 12/24/17 1907 CKMBP 1.8 -- PBNP -- 31,933* EKG: most recent image reviewed TELE: most recent recordings reviewed CXR: most recent image reviewed Echocardiogram: most recent image reviewed Cardiac Catheterization: most recent image reviewed Radiology: most recent image reviewed PATIENT CHECKLIST ? Are restraints necessary: No ? Deep vein thrombosis prophylaxis administered? No. Contraindicated. ? Stress ulcer prophylaxis? Yes ? Nasogastric tube? No ? Herring catheter necessary? Yes ? Is central line essential? Yes ? Plan discussed with assigned RN? Yes ? Family updated within last 24 hours? Yes Code/Social/Dispo: Awaiting clinical improvement. Possible transfer to the floor today SIGNATURE: Scott Graves MD PGY-1 PATIENT NAME: Frank Rivera DATE: December 28, 2017 TIME: 7:30 AM PAGER/CONTACT #: [phone] [facility] STAFF PHYSICIAN NOTE OF PERSONAL INVOLVEMENT IN CARE I have reviewed the history and physical obtained and documented by the resident, and personally interviewed, examined and reviewed records/data/labs/radiographs. I personally participated in the hernandez components and I agree with the history physical examination, data assessment, diagnosis and plan as outlined except where differences are stated below. I have discussed the case and management of the patient's care. The following comments revise or confirm relevant hernandez components of the note. ? IMPRESSION:?62 yo M with above mentioned past medical history most significant for atrial fibrillation, CAD s/p CABG, Heyde's syndrome, Aortic stenosis s/p bioprosthetic AVR, SSS s/p PM ? Active issues: Anemia - worked up for GI bleeding - negative and most likely from rectus sheath hematoma Acute kidney injury ? PLAN:? Started on CVVH yesterday after line placement. Discuss with nephrology today re: transitioning to IHD Hematology note reviewed, concern of hemolysis unclear and anemia/drop in Hg is felt to be secondary to blood loss. We will repeat Hg this afternoon.? ? This patient has a high probability of sudden, clinically significant deterioration, which requires the highest level of physician preparedness to intervene urgently. I managed/supervised life or organ supporting interventions that required frequent physician assessment. I devoted my full attention to the direct care of this patient for the amount of time indicated below. Time I spent with family or surrogate(s) is included only if the patient was incapable of providing the necessary information or participating in medical decision making. Time devoted to teaching and to any procedures I billed separately is not included. ? Critical Care Documentation: The patient has the following organ/system impairment(s): Acute blood loss and Acute kidney injury ? Time spent providing critical care services: 30 minutes. ? SIGNATURE: Vanessa Thomas MD [facility] PAGER:[phone] DATE of SERVICE: December 28, 2017 TIME of SERVICE: 8:24 AM APTT Collected: 12/27/2017 Status: F Source: PLANO 11:18 PM [facility] REPOSITORY TYPE CODE TESTS RESULT OUT OF RANGE REFERENCE UNITS LAB APTT 23.0-32.4 sec High APTT 36.5 Result Comment: Unfractionated Heparin Therapeutic Ranges: Standard Heparin Nomogram: 53 to 78 seconds (anti-Xa level of 0.3 to 0.7 U/ml) Low Dose/ACS Nomogram: 49 to 67 seconds (anti-Xa level of 0.2 to 0.5 U/ml) Stroke Treatment Nomogram: 49 to 67 seconds (anti-Xa level of 0.2 to 0.5 U/ml) Note: The APTT therapeutic range has been determined for the current lot of laboratory APTT reagent in use throughout the [facility]. Performed By: #### PTT, PHOS, CBC #### [facility] [address] [place], [place] [address] PHOSPHORUS Collected: 12/27/2017 Status: F Source: PLANO 11:18 PM [facility] REPOSITORY TYPE CODE TESTS RESULT OUT OF REFERENCE UNITS RANGE LAB PHOS 2.7-4.8 mg/dL Phosphorus 4.4 Performed By: #### PTT, PHOS, CBC #### [facility] [address] [place], [place] [address] CBC Collected: 12/27/2017 Status: F Source: PLANO 11:18 PM [facility] REPOSITORY TYPE CODE TESTS RESULT OUT OF REFERENCE UNITS RANGE LAB WBC 3.70-11.00 k/uL Low WBC 3.03 LAB RBC 4.20-6.00 m/uL Low RBC 2.35 LAB HGB 13.0-17.0 g/dL Low Hemoglobin 7.1 LAB HCT 39.0-51.0 % Low Hematocrit 21.8 LAB MCV 80.0-100.0 fL MCV 92.8 LAB MCH 26.0-34.0 pG MCH 30.2 LAB MCHC 30.5-36.0 g/dL MCHC 32.6 LAB RDWCV 11.5-15.0 % RDW-CV High 18.5 LAB PLTCT 150-400 k/uL Low Platelet Count 63 Result Comment: No clot detected. LAB MPV 9.0-12.7 fL MPV 9.4 LAB ABSNUC <0.01 k/uL Absolute nRBC <0.01 Performed By: #### PTT, PHOS, CBC #### [facility] [employer] [address] [place], [place] [address] COMP METABOLIC PANEL Collected: 12/27/2017 Status: F Source: PLANO 11:18 PM [facility] REPOSITORY TYPE CODE TESTS RESULT OUT OF REFERENCE UNITS RANGE LAB TP 6.3-8.0 g/dL Low Protein, Total 6.1 LAB ALB 3.9-4.9 g/dL Low Albumin 1.9 LAB CA 8.5-10.2 mg/dL Low Calcium, Total 7.6 LAB TBIL 0.2-1.3 mg/dL Bilirubin, Total 0.8 LAB ALKP 38-113 U/L Alkaline High Phosphatase 141 LAB AST 14-40 U/L AST 32 LAB GLU 74-99 mg/dL Glucose 81 Result Comment: The [place] Diabetes Association (ADA) provides guidance for cutoff values for fasting glucose and random glucose. The ADA defines fasting as no caloric intake for at least 8 hours. Fas ting plasma glucose results between 100 to 125 mg/dL indicate increased risk for diabetes (prediabetes). Fasting plasma glucose results greater than or equal to 126 mg/dL meet the criteria for diagnosis of diabetes. In the absence of unequivocal hyperglycemia, results should be confirmed by repeat testing. In a patient with classic symptoms of hyperglycemia or hyperglycemic crisis, random plasma glucose results greater than or equal to 200 mg/dL meet the criteria for diagnosis of diabetes. Reference: Standards of Medical Care in Diabetes 2016, [place] Diabetes Association. Diabetes Care. 2016.39(Suppl 1). LAB BUN 9-24 mg/dL BUN High 52 LAB CRET 0.73-1.22 mg/dL Creatinine High 4.50 LAB NA 136-144 mmol/L Sodium 137 LAB K 3.7-5.1 mmol/L Potassium 4.3 LAB CL 97-105 mmol/L Chloride High 110 LAB CO2 22-30 mmol/L Low CO2 20 LAB AGAP 9-18 mmol/L Low Anion Gap 7 LAB ALT 10-54 U/L ALT 22 LAB GFRAA eGFR- Amer. 16 LAB GFRNAA . eGFR-All Other Races 13 Result Comment: eGFR (Estimated GFR) Units of measure: mL/min/1.73 meters squared eGFR is derived from the reexpressed MDRD Study equation using the following parameters: serum creatinine, age, gender and race. The creatinine assay has been calibrated to be traceable to IDMS. An eGFR <60 mL/min/1.73m2 for >3 months is consistent with chronic kidney disease. Refer to KDOQI guidelines for clinical interpretation. In patients with unstable renal function, e.g. those with acute kidney injury, the eGFR may not accurately reflect actual GFR. Performed By: #### CMP #### [facility] [address] [place], [place] [address] MAGNESIUM Collected: 12/27/2017 Status: F Source: PLANO 8:07 PM [facility] REPOSITORY TYPE CODE TESTS RESULT OUT OF REFERENCE UNITS RANGE LAB MG 1.7-2.3 mg/dL Magnesium 1.8 Performed By: #### MG1, PHOS #### [facility] [address] [place], [place] [address] PHOSPHORUS Collected: 12/27/2017 Status: F Source: PLANO 8:07 PM [facility] REPOSITORY TYPE CODE TESTS RESULT OUT OF REFERENCE UNITS RANGE LAB PHOS 2.7-4.8 mg/dL Phosphorus 4.5 Performed By: #### MG1, PHOS #### [facility] [address] [place], [place] [address] PROCEDURE Observed: 12/27/2017 Status: COMPLETED Source: PLANO 3:47 PM [facility] REPOSITORY HNO ID: [id number] Author: Joshua Taylor Service: Critical Care Author Type: Resident Type: Procedures Filed: 12/27/2017 6:13 PM Note Text: BEDSIDE PROCEDURE NOTE PROCEDURE DATE: December 27, 2017 PROCEDURE START TIME: 1400 PRIMARY PROCEDURALIST: Joshua Taylor DO METER TESTER PRIMARY(S): Dr. Jenniffer Esaclante INFORMED CONSENT: Informed Consent obtained and on the chart UNIVERSAL PROTOCOL / SAFETY CHECKLIST Sign in Communication: Completed Time Out: Team Confirms the Correct Patient, Correct Procedure, Correct Site and Site Marking, Correct Position (if applicable), Prep and Dry Time (if applicable). Time: 1420 Affirmation of Time Out: YES Sign Out Discussion: Completed PROCEDURE: CENTRAL VENOUS LINE INSERTION Indication: trialysis catheter for IRINA-D Insertion Type: New stick Site: Right internal jugular vein Inserted By: Resident Supervision: Dr. Jenniffer Escalante [facility] Central Line Insertion checklist, attached to the Central Line-Associated Bloodstream Infection Prevention Policy, was utilized during this procedure. Ultrasound Used for Insertion: Yes, image captured All personnel involved with the procedure used caps, masks with eye seo, sterile gowns and sterile gloves. The area was prepped with chlorhexidine gluconate and draped with a full-body sterile drape following the usual aseptic technique . Anesthesia was obtained with local infiltration of 1% lidocaine. The vessel was cannulated under direct ultrasound visualization with a 6.35 cm, 18 gauge single lumen catheter on the first attempt. The vessel was transduced to confirm venous placement. A J-tipped spring wire was passed into the vein through the indwelling catheter and left in situ while the catheter was removed. A small skin incision was made and the tract was dilated with a semi-rigid tissue dilator. A trialysis line was advanced over the guidewire and left in situ while the guidewire was removed. All ports were capped with sterile site caps, venous blood was aspirated from all ports and all ports were flushed with sterile saline solution. The catheter was secured in place with sterile sutures and a sterile, transparent, occlusive dressing was placed over the site. A portable CXR was ordered. All catheters, needles and wires were accounted for and intact. The patient tolerated the procedure well and without apparent complications No Specimens Collected Unless Noted Here Estimated Blood Loss: Scant SIGNATURE: Joshua Taylor DO PATIENT NAME: Frank Rivera DATE: December 27, 2017 TIME: 3:50 PM PAGER/CONTACT #: [phone] XR CHEST 1V FRONTAL Observed: 12/27/2017 Status: F Source: [facility] 2:20 PM [facility] REPOSITORY * * *Final Report* * * DATE OF EXAM: Dec 27 2017 2:20PM [facility] [id number] - XR CHEST 1V FRONTAL PORT / PROCEDURE REASON: Evaluate tube, line or lead position * * * * Physician Interpretation * * * * CHEST RADIOGRAPH (PORTABLE SINGLE VIEW AP) Exam Date/Time: 12/27/2017 2:20 PM Indications: Evaluate tube, line or lead position MQ: XCPMC_5 Comparison: Earlier the same day RESULTS: See Impression. IMPRESSION: Lines, Tubes, and Devices: Right IJ line mid SVC. Stable pacemaker. Lungs and Pleura: Bilateral effusions and overlying opacity similar to prior. No pneumothorax. Cardiomediastinal silhouette: Stable cardiac silhouette. Loss Prevention Operations Manager: PSCB Transcribe Date/Time: Dec 27 2017 5:45P Dictated by : LUIS HUERTA MD This examination was interpreted and the report reviewed and electronically signed by: LUIS HUERTA MD on Dec 27 2017 5:46PM EST [id number] TYPE AND SCREEN Collected: 12/27/2017 Status: F Source: [place] 1:55 PM [facility] REPOSITORY TYPE CODE TESTS RESULT OUT OF REFERENCE UNITS RANGE LAB %ABR A ABO/RH(D) POSITIVE LAB % Antibody NEG Screen Performed By: #### TSCR #### [facility] [address] [place], [place] [address] CONSULT PROG Observed: 12/27/2017 Status: COMPLETED Source: PLANO 12:12 PM [facility] REPOSITORY HNO ID: [id number] Author: Adry Greer Service: Hematology/Oncology Author Type: Physician Type: Consult Progress Note Filed: 12/27/2017 3:00 PM Note Text: [facility] Inpatient Consult Progress Note PATIENT NAME: Frank Rivera [facility] ATTENDING PHYSICIAN: Dr. Greer DATE OF SERVICE: December 27, 2017 Reason for consultation: Concern for autoimmune hemolytic anemia INTERVAL HISTORY: Tranferred to ICU overnight for dialysis line placement and initiation of dialysis but did not get line due to coagulopathic and drop in hbg Patient has no complaints other than wanting to eat and drink. HISTORY OF PRESENT ILLNESS: Mr. Rivera is a 62 year old man with history of afib s/p PPM and DCCV, on apixaban, HTN, hypothyroid, aortic stenosis s/p bioprosthetic ACR and RUDY ligation, sick sinus syndrome, h/o CVA, retinal embolism, h/o Min-en-Y bypass, chronic iron deficiency anemia, UGIB (1997, 2014, 2015) who presented to OSH with several weeks of worsening fatigue and shortness of breath. PCP ordered a CBC which was notable for Hgb ~7.5. He was admitted to OSH for further work up. On presentation he was noted to have guaiac pos stool and IRINA with Cr 4.12/BUN 70. He underwent GI work up with EGD, colonoscopy, and tagged RBC scan which were all negative. Renal function did not improve and he ultimately underwent a renal biopsy with prelim concerns for C3 nephropathy. A BMBX was also performed looking for plasma cell neoplasm given anemia and acute renal failure. Notable Labs at OSH on 12/23: CBC WBC 3.8, Hg 8.4, Plt 84 CMP Na 141, K 5.6, Chloride 119, CO2 17, BUN 60, Cr 3.71 Total protein 7 IgG 3273 H IgA 349 IgM 159 Albumin 2.4 Albmin/glboulin 0.6 Alpha 1 gloublins Lis 0.2 Alpha 2 globulins Lis 0.5 Beta glboluins Lis 0.87 Gamma globulins 4.6 (H) Complement C3 64 (L) Complement C4 17 Free [place] 402.7 (H) Free Lambda 378.8 (H) Free [place]/Lambda ratio 1.06 ? 12/24 labs: CBC shows WBC 3.2, Hg 7.8, Plt 80 CMP shows Na 141, K 5.3, CO2 17, Chlroide 118, BUN 61, Cr 4.07, Phosphorsu 5.5 Bone marrow biopsy (full results in patient record on nursing floor): Normocellular marrow with mild plasmacytosis. Iron-absent Peripheral blood-macrocytic anemia and thrombocytopenia. Flow cytometry study from [facility] shows no evidence for abnormal myeloid maturation or an increased blast population. There is no evidence for a lymphoproliferative disorder or plasma cell neoplasm. Cytogenetic studies are pending at this time. ? Kidney biopsy (full report in his patient record on nursing floor): -Glomeruli showing focal segmental mesangiolysis (3 of 28 glomeruli), vague nodularity (2 of 28 glomeruli) and a single cellular crescent (1 of 28 glomeruli). -Mild tubular injury. -Moderate interstitial fibrosis and tubular atrophy. -strong granular IgM and C3 staining on immunofluorescence, with weak granular staining for C1q and kappa and lambda light chains. -Electron microscopy with occasional, poorly definied electron- dense areas in mesangium. ? Patient reporting lower abd pain, more significant on Left lower quadrant which started today. Reports decreased urine output. Urine that he does make is tea colored, no cruz blood, non-foamy. He reports fluid retention and 10+lb weight gain since hospitalization. Denies recent tobacco or alcohol intake. 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 He has received 6U PRBC and 2U PLT transfusions at OSH prior to transfer. ROS: 01/03 reviewed and negative except as above ALLERGIES ALLERGIES Allergen Reactions - Penicillin Hives MEDICATIONS Current Facility-Administered Medications: polyethylene glycol 3350 17 g packet (MIRALAX, GLYCOLAX) 17 g ORAL DAILY morphine 1 mg injection 1 mg INTRAVENOUS q 8 H PRN sodium bicarbonate 650 mg tab(s) 650 mg ORAL TID senna 8.6 mg tab(s) (SENOKOT) 8.6 mg ORAL BID docusate sodium 100 mg cap(s) (COLACE) 100 mg ORAL BID 0.9% NaCl 2-10 mL 2-10 mL INTRAVENOUS PRN sodium citrate 4% 3-6 mL catheter lock 3-6 mL INTRALUMINAL PRN phosphorus 500 mg tab(s) (K PHOS NEUTRAL) 500 mg ORAL/FEEDING TUBE PRN Or sodium phosphate 15 mmol in D5W 250 mL 15 mmol INTRAVENOUS PRN Or sodium phosphate 30 mmol in D5W 250 mL 30 mmol INTRAVENOUS PRN Or sodium phosphate 45 mmol in D5W 250 mL 45 mmol INTRAVENOUS PRN 0.9% NaCl 3-5 mL 3-5 mL INTRAVENOUS q 12 H acetaminophen 650 mg tab(s) (TYLENOL) 650 mg ORAL/FEEDING TUBE q 6 H PRN And acetaminophen 650 mg suppository (TYLENOL) 650 mg RECTAL q 6 H PRN ciprofloxacin 400 mg in D5W 200 mL (CIPRO) 400 mg INTRAVENOUS q 24 HR metroNIDAZOLE 500 mg PREMIX piggyback (FLAGYL) 500 mg INTRAVENOUS q 8 H tamsulosin ER 0.4 mg cap(s) (FLOMAX) 0.4 mg ORAL DAILY 0.9% NaCl 3-5 mL 3-5 mL INTRAVENOUS q [address] 40 mg tab(s) (PROTONIX) 40 mg ORAL BID levothyroxine 200 mcg tab(s) (SYNTHROID) 200 mcg ORAL BEFORE BREAKFAST DAILY atorvastatin 80 mg tab(s) (LIPITOR) 80 mg ORAL AT BEDTIME PHYSICAL EXAMINATION: BP 139/70 Pulse 72 Temp 36.7 ?C (98.1 ?F) (Oral) Resp 15 Ht 193 cm (6' 3.98) Wt 101 kg (222 lb 10.6 oz) SpO2 93% BMI 27.11 kg/m? Intake/Output Summary (Last 24 hours) at 12/27/17 1212 Last data filed at 12/27/17 1000 Gross per 24 hour Intake 1249 ml Output 1100 ml Net 149 ml General: Elderly man, lying in bed. In NAD HEENT: PERRLA, EOMI, anicteric sclera, MMM Neck: Supple Resp: No use of accessory muscles, non labored breathing Abd: Soft, LLQ with purple marking (by primary team) but no obvious bruising. Large hematoma is palpated. MSK: +edema. Neuro: AAOx3, no acute focal deficits. Skin: Warm, dry, intact. No rashes. Lines without oozing. LABORATORY DATA Recent Labs 12/27/1735212/26/17215512/26/17 17512/26/17 1229 WBC 3.34* 3.35* 3.62* < > 4.00 RBC 2.62* 1.78* 2.32* -- 2.62* HB 8.1* 5.6* 7.1* -- 8.0* HCT 24.9* 17.3* 22.2* -- 25.4* PLT 82* 73* 78* -- 80* MCV 95.0 97.2 95.7 -- 96.9 MCH 30.9 31.5 30.6 -- 30.5 MCHC 32.5 32.4 32.0 -- 31.5 RDWCV 18.4* 19.2* 19.1* -- 19.1* MPV 11.0 10.1 10.7 -- 10.2 NEUTP 68.0 -- 68.0 -- 69.7 ABSNEUT 2.26 -- 2.45 -- 2.77 LYMPHP 25.7 -- 24.3 -- 21.8 MONOP 6.3 -- 7.7 -- 8.5 EODINP 0.0 -- 0.0 -- 0.0 BASOP 0.0 -- 0.0 -- 0.0 ABSMONO 0.21 -- 0.28 -- 0.34 ABSEOSIN <0.03 -- <0.03 -- <0.03 ABSBASO <0.03 -- <0.03 -- <0.03 < > = values in this interval not displayed. Recent Labs 12/27/1735212/26/17232712/26/17215512/26/17 17512/26/17 1750 12/26/17 1342 12/26/17 1220 12/26/17 0529 12/25/17 21512/25/17 0649 12/24/17 1618 NA -- -- 140 -- 139 141 -- 138 -- -- 136 -- 137 K -- -- 4.4 -- 5.2* 5.4* -- 5.7* < > -- 5.4* < > 5.6* CHLOR -- -- 116* -- 112* 113* -- 114* -- -- 110* -- 110* CO2 -- -- 15* -- 17* 16* -- 13* -- -- 14* -- 16* CREAT -- -- 5.01* -- 5.43* 5.63* -- 4.79* -- -- 4.52* -- 4.29* BUN -- -- 60* -- 68* 67* -- 69* -- -- 64* -- 62* GLUC -- -- 96 -- 81 73* -- 108* -- -- 84 -- 117* P -- 6.2* 5.8* -- -- -- -- 6.7* -- -- -- -- -- TPROT -- -- -- -- -- -- -- -- -- -- 7.0 -- 7.6 ALB -- -- -- -- -- -- -- -- -- -- -- -- 2.5* MG -- -- 1.8 -- -- -- -- -- -- -- -- -- -- CA -- -- 7.1* -- 7.9* 8.4* -- 8.0* -- -- 7.9* -- 8.2* ALKPHOS -- -- -- -- -- -- -- -- -- -- -- -- 205* TBILI -- 0.7 -- -- -- -- -- -- -- -- -- -- 0.8 AST -- -- -- -- -- -- -- -- -- -- -- -- 42* ALT -- -- -- -- -- -- -- -- -- -- -- -- 30 URICACID -- -- -- -- -- -- 10.2* -- -- -- -- -- -- PTSEC -- -- 16.2* -- -- -- -- -- -- 16.0* -- -- -- INR -- -- 1.6* -- -- -- -- -- -- 1.6* -- -- -- APTT 31.0 Blood/Anticoagulant Ratio in tube unsatisfactory. -- -- -- -- -- -- -- 38.7* -- -- -- DDMER -- -- -- 1,910* -- -- -- -- -- -- -- -- -- < > = values in this interval not displayed. PATHOLOGY: IMAGING: Reviewed in [facility] ASSESSMENT AND PLAN: Mr. Rivera is a 62 year old man with history of afib s/p PPM and DCCV, on apixaban, HTN, hypothyroid, aortic stenosis s/p bioprosthetic ACR and RUDY ligation, sick sinus syndrome, h/o CVA, retinal embolism, h/o Min-en-Y bypass, chronic iron deficiency anemia, UGIB (1997, 2014, 2015) who presented to OSH with several weeks of worsening fatigue and shortness of breath. Found to have acute kidney injury and throbocytopenia and anemia refractory to blood transfusions. Hematology consulted for autoimmune hemolytic anemia. - Smear reviewed. Notable for few schistocytes, yojana cells, rare spherocytes. Decreased platelets without clumping. Normal leukocytes. - CT a/p with rectus sheath hematoma. Pt denies any procedures or injections into abd. Unclear why he would develop a spontaneous hematoma without overt evidence of coagulopathy. - CT a/p and LE dopplers also showed LAD as noted above. Will need to r/o lymphoproliferative disorder. Overall picture seems mores consitent with an autoimmune process. Note, weakly positive FELICIA however eluate was negative. Given this, patient does not have autoimmune hemolytic anemia but rather likely has elevated immunoglobulins (? Due to autoimmune process). Recommendations: - CBC+diff daily - Will follow up flow cytometry, IgG, IgA, IgM, PNH, LDH, EPO - Recommend LN excisional biopsy. Agree with holding steroids for now while we purse biopsy to r/o lymphoproliferative process - There may be some contribution due to chronic iron deficiency given BM biopsy from OSH showed depleted iron stores. Would give IV ferrlicet 125 mg daily x 5 days. See below Patient seen and discussed with staff, Dr. Greer. Mariela Deleon MD Fellow ([id number]), Hematology and Medical Oncology Pager: [phone] ATTENDING ATTESTATION: I have reviewed the data, obtained PMH, PFSH, and ROS, seen and examined the patient to confirm the findings and plan as outlined by Dr. Deleon except as specifically stated. Pt moved to ICU for possible initiation of dialysis as well as drop in Hgb yesterday. Repeat scan of abd shows sightly larger rectus sheath hematoma/around bladder area. Hematomas not visible on exam, but they are palpable as indurated areas in L abdomen Still with very edematous LEs Note that BB now reports eluate is NEGATIVE meaning that the antibody eluted from the circulating RBCs does not have specificity nor is it a panagglutinin which is the type expected with autoimmune hemolytic anemia. This suggests that the IgG/C3 on his red cells was just bystander immune complex attachment. Impression: Anemia - seemingly blood loss predominantly. Hemolysis is less clear. Positive FELICIA is not typical for AIHA, but could lend support to an autoimmune, immune complex deposition disease. Something similar in his kidneys? Still with groin node and deep celiac node. As he continues to require more transfusions to raise HANDH due to acute losses, the need for any extra iron IV diminishes, even with marrow report of low levels. Would probably stop this now. Plan: Labs as above Given need for extra transfusions now, would not proceed with plan for 5 days of IV iron since he should be able to recycle the iron in the hematomas and will have the transfusions to also supply iron. Will f/u with you Adry Greer MD, [facility] Staff Wind Development Director Pager [phone] Date of Service 12/27/2017 Time of Service 2:51 PM XR CHEST 1V FRONTAL Observed: 12/27/2017 Status: F Source: [facility] 10:04 AM [facility] REPOSITORY * * *Final Report* * * DATE OF EXAM: Dec 27 2017 10:04AM [facility] [id number] - XR CHEST 1V FRONTAL PORT / PROCEDURE REASON: Shortness of breath * * * * Physician Interpretation * * * * EXAMINATION: CHEST RADIOGRAPH (PORTABLE SINGLE VIEW AP) Exam Date/Time: 12/27/2017 10:04 AM Clinical History: Shortness of breath, MQ: XCPMC_5 Comparison: 1 day prior RESULT: See impression. IMPRESSION: Lines, tubes, and devices: Left transvenous dual-chamber pacemaker. Status post median sternotomy and left 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 ligation clip placement. Lordotic projection. Lungs and pleura: Well-expanded lungs. Improved right greater than left basilar opacities, suggestive of smaller versus redistributed pleural effusions, associated atelectasis and possible edema versus infection/aspiration. Cardiomediastinal silhouette: Stable, enlarged cardiomediastinal silhouette. Question mild prominence of central pulmonary arteries. Stable to slightly decreased peripheral pulmonary vasculature. Other: . Loss Prevention Operations Manager: IDA Transcribe Date/Time: Dec 27 2017 10:28A Dictated by : YULISSA FONTAINE MD This examination was interpreted and the report reviewed and electronically signed by: YULISSA FONTAINE MD on Dec 27 2017 10:31AM EST [id number] CONSULT PROG Observed: 12/27/2017 Status: COMPLETED Source: [facility] 9:06 AM [facility] REPOSITORY [facility] ID: [id number] Author: Janessa Sheikh (Fel) Service: Nephrology Author Type: Fellow Type: Consult Progress Note Filed: 12/27/2017 10:14 AM Note Text: NEPHROLOGY PROGRESS NOTE INTERVAL HISTORY: Patient in no acute distress, on 2L NC Overnight transferred to MICU for line placement and initiation of dialysis Patient was coagulopathic with drop in Hb, line placement held Mild hyperkalemia, managmed medically Vital Signs; BP 151/71 Pulse 69 Temp 36.7 ?C (98.1 ?F) (Oral) Resp 22 Ht 193 cm (6' 3.98) Wt 101 kg (222 lb 10.6 oz) SpO2 97% BMI 27.11 kg/m? General appearance: Well appearing, alert, in no acute distress, Eyes: Anicteric sclera. PERRLA, EOMI Oropharynx: normal Neck: Supple, no adenopathy Lungs: Lungs clear to auscultation. No wheezing, rhonchi, rales Heart: RRR without murmur, gallop, or rubs. Abdomen: soft, mild tenderness, left sided hematoma. Bowel sounds normal. Extremities: No deformities, edema, skin discoloration Peripheral pulses: Normal Neuro: Non focal Intake/Output Summary (Last 24 hours) at 12/27/17 0906 Last data filed at 12/27/17 0600 Gross per 24 hour Intake 1618 ml Output 550 ml Net 1068 ml Labs: CBC: Recent Labs 12/27/17 0353 12/26/17 2156 12/26/17 17512/26/17 17512/26/17 1229 12/26/17 0529 12/25/17 2329 12/25/17 1718 12/25/17 0649 12/24/17 1907 12/24/17 1618 WBC 3.34* 3.35* 3.62* 3.59* 4.00 2.68* -- 3.86 4.05 3.12* 3.28* HB 8.1* 5.6* 7.1* -- 8.0* 6.8* 7.2* 8.4* 8.6* 8.8* 8.6* HCT 24.9* 17.3* 22.2* -- 25.4* 22.4* 23.2* 26.3* 26.9* 27.6* 27.2* PLT 82* 73* 78* -- 80* 71* -- 84* 86* 84* 90* MCV 95.0 97.2 95.7 -- 96.9 100.4* -- 98.1 97.8 96.5 97.5 RDWCV 18.4* 19.2* 19.1* -- 19.1* 19.1* -- 19.8* 19.6* 19.7* 19.6* NEUTP 68.0 -- 68.0 -- 69.7 77.6 -- -- 71.1 72.7 75.0 LYMPHP 25.7 -- 24.3 -- 21.8 19.4 -- -- 21.0 23.1 22.0 MONOP 6.3 -- 7.7 -- 8.5 3.0 -- -- 7.9 4.2 3.0 EODINP 0.0 -- 0.0 -- 0.0 0.0 -- -- 0.0 0.0 0.0 COAG: Recent Labs 12/27/17 0353 12/26/17232712/26/17215512/25/172153 APTT 31.0 Blood/Anticoagulant Ratio in tube unsatisfactory. -- 38.7* INR -- -- 1.6* 1.6* BNP: Recent Labs 12/26/17232712/26/17215512/26/17 17512/26/17 1342 12/26/17 0529 12/25/17 2329 12/25/17 0649 12/24/17 2319 12/24/17 1618 GLUC -- 96 81 73* 108* -- 84 -- 117* NA -- 140 139 141 138 -- 136 -- 137 K -- 4.4 5.2* 5.4* 5.7* 5.6* 5.4* 5.4* 5.6* CHLOR -- 116* 112* 113* 114* -- 110* -- 110* CO2 -- 15* 17* 16* 13* -- 14* -- 16* ANION -- 9 10 12 11 -- 12 -- 11 BUN -- 60* 68* 67* 69* -- 64* -- 62* CREAT -- 5.01* 5.43* 5.63* 4.79* -- 4.52* -- 4.29* P 6.2* 5.8* -- -- 6.7* -- -- -- -- CHEM: Recent Labs 12/26/17 2156 12/26/17 1750 12/26/17 1342 12/26/17 0529 12/25/17 0649 12/24/17 1618 ALB -- -- -- -- -- 2.5* TPROT -- -- -- -- 7.0 7.6 CA 7.1* 7.9* 8.4* 8.0* 7.9* 8.2* MG 1.8 -- -- -- -- -- HEPATIC: Recent Labs 12/26/17232712/24/17 1618 ALKPHOS -- 205* ALT -- 30 AST -- 42* TBILI 0.7 0.8 ASSESSMENT AND PLAN: 62y male with nml baseline cr october 0.9, now returns 12/14/17 with complaints of fatigue without rash, neuro, rheum, oral ulcers, found to be anemic, GI eval wihtout source, + hemolysis, multiple pRBC transfusions locally, IRINA with cr 4.1 on admission and essentially stable since then, renal Bx /28, without definitive diagnosis, by report. Also with Bone marrow bx. 1. 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 Reviewed report with pathology- trying to obtain path slides for formal review. C3 low, ANCA +, mild increase in MPO, FATOU-, petar +. Blood cultures -ve, HIV/HepB/HepC -ve. Echo without vegatation. CT abd with hematoma L rectus Cryoglobulins, antiENA, ds DNA - all in process Serum uric acid 10.2 2. Electrolytes: Hyperkalemia - improved 3. Volume status: Euvolemic 4. Acid-base: NAGMA 5. Bone mineral disease (Ca/P/PTH): elevated phos, on sevelamer Plan: Low threshold to initiate dialysis if refractory hyperkalemia, volume overload, worsening acidosis Would hold prednisone at this time. Continue with Sodium bicarbonate 650 TID Continue with sevelamer 800mg PO QAC. Review of path slides pending. Strict I/O's Daily weights Renal diet Dose medications for eGFR <10 mL/min Janessa Sheikh MD Nephrology AND Hypertension Fellow, PGY4 Pager [phone] December 27, 2017 9:21 AM PROGRESS Observed: 12/27/2017 Status: COMPLETED Source: [place] 8:49 AM [facility] REPOSITORY O ID: [id number] Author: Vanessa Thomas MD Service: Critical Care Author Type: Physician Type: Progress Notes Filed: 12/27/2017 4:58 PM Note Text: [facility] STAFF PHYSICIAN NOTE OF PERSONAL INVOLVEMENT IN CARE I have reviewed the history and physical obtained and documented by the resident, and personally interviewed, examined and reviewed records/data/labs/radiographs. I personally participated in the hernandez components and I agree with the history physical examination, data assessment, diagnosis and plan as outlined except where differences are stated below. I have discussed the case and management of the patient's care. The following comments revise or confirm relevant hernandez components of the note. IMPRESSION: 62 yo M with above mentioned past medical history most significant for atrial fibrillation, CAD s/p CABG, Heyde's syndrome, Aortic stenosis s/p bioprosthetic AVR, SSS s/p PM Active issues: Anemia - worked up for GI bleeding - negative and most likely from rectus sheath hematoma Acute kidney injury PLAN: Obtain HD catheter placement and start dialysis Follow up hematology consult for hemolysis IR consulted for read on CT abdomen that revealed unchanged or slightly increased. At this time would prefer to hold off on IR angiogram due to dye load and risk of contrast administration in setting of IRINA given that the anemia responded to transfusion and did not result in hemodynamic instability. This patient has a high probability of sudden, clinically significant deterioration, which requires the highest level of physician preparedness to intervene urgently. I managed/supervised life or organ supporting interventions that required frequent physician assessment. I devoted my full attention to the direct care of this patient for the amount of time indicated below. Time I spent with family or surrogate(s) is included only if the patient was incapable of providing the necessary information or participating in medical decision making. Time devoted to teaching and to any procedures I billed separately is not included. Critical Care Documentation: The patient has the following organ/system impairment(s): Acute blood loss and Acute kidney injury Time spent providing critical care services: 35 minutes. SIGNATURE: Vanessa Thomas MD [facility] PAGER:[phone] DATE of SERVICE: December 27, 2017 TIME of SERVICE: 8:[address] ABD/PEL WO IVCON Observed: 12/27/2017 Status: F Source: [place] 5:15 AM [facility] REPOSITORY * * *Final Report* * * DATE OF EXAM: Dec 27 2017 5:15AM [facility] 0531 - CT ABD/PEL WO IVCON / PROCEDURE REASON: Abd pain, unspecified * * * * Physician Interpretation * * * * EXAMINATION: CT ABDOMEN AND PELVIS WITHOUT IV CONTRAST CLINICAL HISTORY: 62-year-old male with history of HTN, Afib, s/p CABG, GI AVMs, AVR, SSS s/p PPM and remote Min en Y bypass admitted from [facility] with IRINA and pancytopenia. No unifying diagnosis but c/f lymphoproliferative d/o. History of known rectus wall hematoma, now with acute blood loss anemia. TECHNIQUE: Non-IV contrast imaging of the abdomen and pelvis was performed using standard technique, scanning from just above the dome of the diaphragm to the symphysis pubis. Unenhanced imaging is limited for the evaluation of some intra-abdominal and pelvic pathology. MQ: [id number]_3 Contrast: IV: None Oral: None CT Radiation dose: Integrated Dose-length product (DLP) for this visit = 1216 mGy*cm. CT Dose Reduction Employed: Automated exposure control (AEC) COMPARISON: 12/25/2017 RESULT: Abdomen / Pelvis: Liver: Diffuse low-attenuation of the liver compatible with fatty change. Biliary: Hyperdense foci within the gallbladder compatible with cholelithiasis. No evidence of pericholecystic fluid or gallbladder wall thickening. Spleen: No splenomegaly. Pancreas: Unremarkable. Adrenals: No mass. Kidneys: No calculus, hydronephrosis or finding to suggest a cyst or mass in the unenhanced kidney. GI Tract: Gastric bypass. No bowel wall dilation or thickening. Lymph Nodes: 3.3 x 2.9 cm round low-attenuation structure to the right of the celiac (series 2 image 45) previously measured 3.5 x 3.0 cm. This may represent an enlarged lymph node. Otherwise no adenopathy in the abdomen/pelvis. Mesentery/peritoneum: No ascites. Retroperitoneum: No mass. Vasculature: Arterial atherosclerotic disease without aneurysm. There is a left-sided IVC. Pelvis: No mass or ascites. Bladder is decompressed with a Herring catheter. Bones/Soft Tissues: Left rectus sheath hematoma measures 20 x 8.7 x 6.7 cm (series 2 image 128, and sagittal image 91), previously 21 x 8.0 x 6.3 cm at a similar level. Additionally there is a small amount of hematoma in the left prevesical region (series 2 image 142) which measures 9.6 x 1.9 cm, previously 9.7 x 2.1 cm. There is diffuse generalized subcutaneous edema. Redemonstrated is a midline ventral hernia containing fat. Degenerative changes of the spine. Lower thorax: Moderate right and small left pleural effusions with adjacent atelectasis. IMPRESSION: LARGE LEFT RECTUS SHEATH HEMATOMA, STABLE OR SLIGHTLY INCREASED IN SIZE SINCE 12/25/2017. 3.3 CM ROUND LOW-ATTENUATION LESION ADJACENT TO THE CELIAC AXIS WHICH MAY BE AN ENLARGED LYMPH NODE. CHOLELITHIASIS WITHOUT EVIDENCE CHOLECYSTITIS. HEPATIC STEATOSIS. Results communicated with Sebastien Pappas MD at 5:58 AM on 12/27/2017 Loss Prevention Operations Manager: PSCB Transcribe Date/Time: Dec 27 2017 5:39A Dictated by : ELISE VALDOVINOS MD This examination was interpreted and the report reviewed and electronically signed by: RILEY CONKLIN MD on Dec 27 2017 8:10AM EST [id number] PROGRESS Observed: 12/27/2017 Status: COMPLETED Source: [place] 5:11 AM [facility] REPOSITORY HNO ID: [id number] Author: Stephanie Arthur Ct Service: (none) Author Type: (none) Type: Progress Notes Filed: 12/27/2017 5:15 AM Note Text: Radiology Service Progress Note PATIENT NAME: Frank Rivera DATE OF SERVICE: December 27, 2017 TIME: 5:11 AM PATIENT IDENTITY VERIFICATION COMPLETED USING TWO (2) METHODS: ID Band . PATIENT GENDER DATA: Male PATIENT RELEVANT IMPLANT DATA REVIEWED: Yes RADIOLOGY DEPARTMENT: CT; Exam(s) Completed: Abdomen/Pelvis PERIPHERAL IV DATA: Not applicable SIGNED BY: Stephanie Arthur Ct December 27, 2017 5:11 AM APTT Collected: 12/27/2017 Status: F Source: [place] 3:53 AM [facility] REPOSITORY TYPE CODE TESTS RESULT OUT OF RANGE REFERENCE UNITS LAB APTT 23.0-32.4 sec APTT 31.0 Result Comment: Unfractionated Heparin Therapeutic Ranges: Standard Heparin Nomogram: 53 to 78 seconds (anti-Xa level of 0.3 to 0.7 U/ml) Low Dose/ACS Nomogram: 49 to 67 seconds (anti-Xa level of 0.2 to 0.5 U/ml) Stroke Treatment Nomogram: 49 to 67 seconds (anti-Xa level of 0.2 to 0.5 U/ml) Note: The APTT therapeutic range has been determined for the current lot of laboratory APTT reagent in use throughout the [facility]. Performed By: #### PTT, STREV #### [facility] [address] [place], [place] [address] STAFF REV W CBCDIF Collected: 12/27/2017 Status: F Source: [place] 3:53 AM [facility] REPOSITORY TYPE CODE TESTS RESULT OUT OF REFERENCE UNITS RANGE LAB WBC 3.70-11.00 k/uL Low WBC 3.34 LAB RBC 4.20-6.00 m/uL Low RBC 2.62 LAB HGB 13.0-17.0 g/dL Low Hemoglobin 8.1 LAB HCT 39.0-51.0 % Low Hematocrit 24.9 LAB MCV 80.0-100.0 fL MCV 95.0 LAB MCH 26.0-34.0 pG MCH 30.9 LAB MCHC 30.5-36.0 g/dL MCHC 32.5 LAB RDWCV 11.5-15.0 % RDW-CV High 18.4 LAB PLTCT 150-400 k/uL Low Platelet Count 82 Result Comment: No clot detected. LAB MPV 9.0-12.7 fL MPV 11.0 LAB ANEUT % Neut% 68.0 LAB AANEUT 1.45-7.50 k/uL Abs Neut 2.26 LAB ALYMP % Lymph% 25.7 LAB AALYMP 1.00-4.00 k/uL Abs Low Lymph 0.86 LAB AMONO % Pope% 6.3 LAB AAMONO <0.87 k/uL Abs Pope 0.21 LAB AEOS % Eosin% 0.0 LAB AAEOS <0.46 k/uL Abs Eosin <0.03 LAB ABASO % Baso% 0.0 LAB AABASO <0.11 k/uL Abs Baso <0.03 LAB AUNRBC 0 /100 WBC NRBCs 0.0 LAB ABNRBC <0.01 k/uL Absolute nRBC <0.01 LAB DTYP DTYPE Auto Diff LAB RBCMOR Red Cell Morph SEE COMMENT Result Comment: Anisocytosis LAB DIFCOM Diff SEE Comments COMMENT Result Comment: See Staff Review LAB SREVW Staff SEE Review COMMENT Result Comment: Normocytic Anemia Without Polychromasia Leukopenia With Absolute Lymphopenia Thrombocytopenia LAB SRPATH Pathologist Reviewed by Daniel Tipton M.D., Ph.D ([id number]) Performed By: #### PTT, STREV #### [facility] [employer] [address] [place] [id number] APTT Collected: 12/26/2017 Status: F Source: [place] 11:28 PM [facility] REPOSITORY TYPE CODE TESTS RESULT OUT OF RANGE REFERENCE UNITS LAB APTT 23.0-32.4 sec APTT Blood/Anticoa gulant Ratio in tube unsatisfactor y. Result Comment: Unable to assay. Specimen improperly collected/handled. Account Credited Called to [facility]VER [id number] Performed By: #### PTT, CBIL, TBIL, PHOS, LD6 #### [facility] [employer] [address] [place] [id number] BILIRUBIN,CONJUGATED Collected: Status: F Source: [place] 12/26/2017 11:28 PM [facility] REPOSITORY TYPE CODE TESTS RESULT OUT OF RANGE REFERENCE UNITS LAB CBIL <0.2 mg/dL High 0.3 Bilirubin,Co njugated Performed By: #### PTT, CBIL, TBIL, PHOS, LD6 #### [place] [address] BILIRUBIN, TOTAL Collected: 12/26/2017 Status: F Source: [place] 11:28 PM [facility] REPOSITORY TYPE CODE TESTS RESULT OUT OF RANGE REFERENCE UNITS LAB TBIL 0.2-1.3 mg/dL 0.7 Bilirubin, Total Performed By: #### PTT, CBIL, TBIL, PHOS, LD6 #### [place] [address] PHOSPHORUS Collected: 12/26/2017 Status: F Source: [place] 11:28 PM [facility] REPOSITORY TYPE CODE TESTS RESULT OUT OF REFERENCE UNITS RANGE LAB PHOS 2.7-4.8 mg/dL High Phosphorus 6.2 Performed By: #### PTT, CBIL, TBIL, PHOS, LD6 #### [facility] [employer] [address] [place] [address] LD Collected: 12/26/2017 Status: F Source: [facility] 11:28 PM [facility] REPOSITORY TYPE CODE TESTS RESULT OUT OF RANGE REFERENCE UNITS LAB LD 135-225 U/L High LD 343 Performed By: #### PTT, CBIL, TBIL, PHOS, LD6 #### [facility] [employer] [address] [place] [address] PROTIME Collected: 12/26/2017 Status: F Source: [place] 9:56 PM [facility] REPOSITORY TYPE CODE TESTS RESULT OUT OF RANGE REFERENCE UNITS LAB PSEC 9.7-13.0 sec High PT Sec 16.2 LAB INR 0.9-1.3 High PT INR 1.6 Result Comment: Vitamin K Antagonist (VKA) Therapeutic Range: INR 2 to 3 (Target INR of 2.5) Note: For patients treated with VKA drugs, such as warfarin, the [place] [employer] 2012 Guideline recommends a therapeutic INR range of 2 to 3 (target INR of 2.5). This recommendation includes high-risk patients with antiphospholipid syndrome with previous arterial or venous thromboembolism, current-generation mechanical or bioprosthetic aortic heart valve replacement. Note: Patients with mechanical aortic valve replacement and additional risk factors for thromboembolic events (atrial fibrillation, previous thromboembolism, LV dysfunction, hypercoagulable conditions) or an older generation mechanical AVR (i.e., ball in-Cage) or any mechanical MVR should have a INR therapeutic range of 2.5 to 3.5 (target INR of 3). Milo GH, et al. Chest 2012, 141:7S-47S Mateo RA, et al. [facility] 2017, 70: 252-289 Performed By: #### PT, CBC, BMP, HAPTO, MG1, PHOS #### [facility] [employer] [address] [place] [address] CBC Collected: 12/26/2017 Status: F Source: [place] 9:56 PM [facility] TYPE CODE TESTS RESULT OUT OF REFERENCE UNITS RANGE LAB WBC 3.70-11.00 k/uL Low WBC 3.35 LAB RBC 4.20-6.00 m/uL Low RBC 1.78 LAB HGB 13.0-17.0 g/dL Low Alert Hemoglobin 5.6 Result Comment: No clot detected. Called to and read back by: Eileen WEISS G62 12/26/17 22:52 S.DELVIN LAB HCT 39.0-51.0 % Low Hematocrit 17.3 LAB MCV 80.0-100.0 fL MCV 97.2 LAB MCH 26.0-34.0 pG MCH 31.5 LAB MCHC 30.5-36.0 g/dL MCHC 32.4 LAB RDWCV 11.5-15.0 % RDW-CV High 19.2 LAB PLTCT 150-400 k/uL Low Platelet Count 73 LAB MPV 9.0-12.7 fL MPV 10.1 LAB ABSNUC <0.01 k/uL Absolute nRBC <0.01 Performed By: #### PT, CBC, BMP, HAPTO, MG1, PHOS #### [facility] [employer] [address] [place], [place] [address] BASIC METABOLIC PANL Collected: 12/26/2017 Status: F Source: [place]AN[place] 9:56 PM [facility] REPOSITORY TYPE CODE TESTS RESULT OUT OF REFERENCE UNITS RANGE LAB GLU 74-99 mg/dL Glucose 96 Result Comment: The [place] Diabetes Association (ADA) provides guidance for cutoff values for fasting glucose and random glucose. The ADA defines fasting as no caloric intake for at least 8 hours. Fas ting plasma glucose results between 100 to 125 mg/dL indicate increased risk for diabetes (prediabetes). Fasting plasma glucose results greater than or equal to 126 mg/dL meet the criteria for diagnosis of diabetes. In the absence of unequivocal hyperglycemia, results should be confirmed by repeat testing. In a patient with classic symptoms of hyperglycemia or hyperglycemic crisis, random plasma glucose results greater than or equal to 200 mg/dL meet the criteria for diagnosis of diabetes. Reference: Standards of Medical Care in Diabetes 2016, [place] [employer] Association. Diabetes Care. 2016.39(Suppl 1). LAB BUN 9-24 mg/dL BUN High 60 LAB CRET 0.73-1.22 mg/dL Creatinine High 5.01 LAB NA 136-144 mmol/L Sodium 140 LAB K 3.7-5.1 mmol/L Potassium 4.4 LAB CL 97-105 mmol/L Chloride High 116 LAB CO2 22-30 mmol/L Low CO2 15 LAB AGAP 9-18 mmol/L Anion Gap 9 LAB CA 8.5-10.2 mg/dL Low Calcium, Total 7.1 LAB GFRAA eGFR- Amer. 14 LAB GFRNAA . eGFR-All Other Races 12 Result Comment: eGFR (Estimated GFR) Units of measure: mL/min/1.73 meters squared eGFR is derived from the reexpressed MDRD Study equation using the following parameters: serum creatinine, age, gender and race. The creatinine assay has been calibrated to be traceable to IDMS. An eGFR <60 mL/min/1.73m2 for >3 months is consistent with chronic kidney disease. Refer to KDOQI guidelines for clinical interpretation. In patients with unstable renal function, e.g. those with acute kidney injury, the eGFR may not accurately reflect actual GFR. Performed By: #### PT, CBC, BMP, HAPTO, MG1, PHOS #### [facility] [employer] [address] [place] [address] HAPTOGLOBIN Collected: 12/26/2017 Status: F Source: [place]AN[place] 9:56 PM [facility] REPOSITORY TYPE CODE TESTS RESULT OUT OF REFERENCE UNITS RANGE LAB HAPTO 31-238 mg/dL Low Haptoglobin <10 Performed By: #### PT, CBC, BMP, HAPTO, MG1, PHOS #### [place] [address] MAGNESIUM Collected: 12/26/2017 Status: F Source: [place] 9:56 PM [facility] REPOSITORY TYPE CODE TESTS RESULT OUT OF REFERENCE UNITS RANGE LAB MG 1.7-2.3 mg/dL Magnesium 1.8 Performed By: #### PT, CBC, BMP, HAPTO, MG1, PHOS #### [place] [address] PHOSPHORUS Collected: 12/26/2017 Status: F Source: [place] 9:56 PM [facility] REPOSITORY TYPE CODE TESTS RESULT OUT OF REFERENCE UNITS RANGE LAB PHOS 2.7-4.8 mg/dL High Phosphorus 5.8 Performed By: #### PT, CBC, BMP, HAPTO, MG1, PHOS #### [place] [address] STAPH AUREUS PCR Collected: 12/26/2017 Status: F Source: [place] 9:56 PM [facility] REPOSITORY TYPE CODE TESTS RESULT OUT OF REFERENCE UNITS RANGE LAB SASRC Nasal S aureus Spec Source LAB MRSRES Negative for MRSA MRSA by PCR. PCR LAB SARES Negative for Staph Staphylococcus aureus PCR aureus by PCR. Performed By: #### SAPCR #### [place] [address] PROGRESS Observed: 12/26/2017 Status: COMPLETED Source: [place] 8:36 PM [facility] REPOSITORY HNO ID: [id number] Author: Sebastien Pappas MD Service: Critical Care Author Type: Resident Type: Progress Notes Filed: 12/27/2017 1:38 AM Note Text: Attestation signed by Martina Galvez at 12/27/2017 6:36 AM See addendum, as below. Martina Galvez MD SERVICE DATE: 12/26/2017 SERVICE TIME: 8:36 PM MICU HANDP SERVICE DATE: 12/26/2017 SERVICE TIME: 5:25 PM Admission Date: 12/24/2017 Day #: 0 in the MICU. Subjective INTERVAL HPI: This is a 62 year old with ? HTN ? Atrial Fibrillation ? CAD s/p CABG ? Heyd's syndrome ? Aortic Stenosis s/p bioprosthetic AVR (27mm St. Richi Trifecta pericardial valve) and RUDY ligation 05/07/17, ? Sick sinus syndrome s/p pacemaker placement 05/13/17 ? 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 hx of Min-En-Y with chronic iron deficiency ? hx of upper GI bleeds most recent in 2015 ? Hypothyroidism ? He initially contacted PCP for fatigue and shortness of breath and underwent labwork. He was found to be anemic w/ IRINA (hgb 7.4, BUN:70, Cr:4.12 + stool guaiac) and was admitted to OSH on 12/14. At OSH underwent EGD, C-scope, tagged RBC scan which were unremarkable. With the worsening renal function and anemia, there was concerns for MM so pt had a BM biopsy that showed normocytic marrow, normal flow cytometry. Also then underwent renal biopsy on 12/18 for unexplained IRINA. 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 ? Since being at [facility], patient has been evaluated by multiple services. He has persistent hemolytic anemia-required 6unit pRBCs at OSH and 1 unit here so far. Hematology has been following patient -CT a/p and LE dopplers showed, left rectus sheath hematoma, 2.6cm LAD abutting Celiac and multiple enlarged LN in LEs will need to r/o lymphoproliferative disorder, suspect there is possibly an autoimmune process, but unclear at this time. General surgery has been following for the rectus sheath hematoma - recommending close monitoring. In regards to the IRINA, nephrology has been following. It is still unclear of the etiology at this time - pathology was showing mixed golmerular pathology with some features consistent with TMA. He has been hyperkalemic around 5.5, Cr around 4.5, and he is oliguric. ? Overnight last night, patient reportedly desaturated to 88% on room air. He was placed on 3L NC without any shortness of breath. CXR was suspicious for pulmonary edema. Recent Echo showed: EF66% mod dilated LV w/ Mod concentrid LVH, 2+ MV regurg, 2-3+ Tricuspid Regurg, 3+ severe Aortic Regur, Pulm HTN 70mmhg. MICU was consulted for transfer of care as there was concern that the patient would potentially decompensate with ongoing anemia, hyperkalemia, worsening IRINA. He was seen by [facility] earlier in the day today and decided to be stable and not in need for ICU care but it was decided to transfer to the ICU for dialysis. He was given Although he is being admitted to ICU for Oliguric Renal failure and intitiation of IHD. When seen today patient states he is only having minimal abdominal pain LLQ, onset: 2 o'clock Thursday morning ~2 days, no radiation, constant dull pain, worse with coughing and palpation, 3/10 in severity. Admits to fatigue, Numbness and tingling that comes and goes in fingers, leg edema(new), bleeding and bruising problems since bee on AC, Dysphagia hx, mild constipation: LBM at OSH few days ago, weight gain from fluid, oligouria Denies any: N/V Black or bloody stools, SOB, CP, Palp, pain in calves, Hemptysis, wheezing, cough, NS, fevers, chills, sking changes, joint pains, hematuria or dysuria ROS otherwise below No past medical history on file. No past surgical history on file. No family history on file. Social History Substance Use Topics - Smoking status: Not on file - Smokeless tobacco: Not on file - Alcohol use Not on file Prescriptions Prior to Admission: atorvastatin (LIPITOR) 80 mg tablet Take 80 mg by mouth once daily. Disp: Rfl: Unknown at Unknown time hydrALAZINE (APRESOLINE) 25 mg tablet Take 25 mg by mouth every 8 hours. Disp: Rfl: Unknown at Unknown time ascorbic acid-ascorbate sodium 500 mg chew Take 500 mg by mouth once daily. Disp: Rfl: Unknown at Unknown time levothyroxine (LEVOXYL) 200 mcg tablet Take 200 mcg by mouth daily before breakfast. Disp: Rfl: Unknown at Unknown time magnesium oxide 200 mg magnesium tab Take 2 tablets by mouth once daily. Disp: Rfl: Unknown at Unknown time metoprolol tartrate, short acting, (LOPRESSOR) 25 mg tablet Take 12.5 mg by mouth twice daily. Disp: Rfl: Unknown at Unknown time ferrous sulfate 325 mg (65 mg iron) tablet Take 325 mg by mouth daily with breakfast. Disp: Rfl: Unknown at Unknown time predniSONE (DELTASONE) 20 mg tablet Take 60 mg by mouth once daily. Disp: Rfl: 12/24/2017 at Unknown time pantoprazole DR (PROTONIX) 20 mg tablet Take 40 mg by mouth twice daily. Disp: Rfl: Unknown at Unknown time cyanocobalamin (VITAMIN B-12) 100 mcg tab Take 500 mcg by mouth once daily. Disp: Rfl: Unknown at Unknown time apixaban (ELIQUIS) 5 mg tab(s) Take 5 mg by mouth twice daily. Disp: Rfl: Unknown at Unknown time ALLERGIES Allergen Reactions - Penicillin Hives COMPLETE REVIEW OF SYSTEMS: PAIN ASSESSMENT: Yes mild abd pain from known hematoma GENERAL: No weight loss, malaise or fevers HEENT: Negative for frequent or significant headaches, No changes in hearing or vision, no nose bleeds or other nasal problems NECK: Negative for lumps, pain and significant neck swelling RESPIRATORY: Negative for cough, hemoptysis, wheezing, COPD, dyspnea or shortness of breath CARDIOVASCULAR: Negative for chest pain, or palpitations YES Leg swelling bilat GI: No nausea, vomiting, or diarrhea, Yes abd pain and constipation : No history of dysuria, frequency or incontinence Yes decreased urine output MUSCULOSKELETAL: Negative for joint pain or swelling, back pain or muscle pain SKIN: Negative for lesions, rash, and itching, Yes some bruising PSYCH: Negative for sleep disturbance, mood disorder and recent psychosocial stressors HEMATOLOGY/LYMPHOLOGY: Yes bruising and bleeding (hematoma), no noted lumps or bumps from patient ENDOCRINE: Negative for cold or heat intolerance, polyuria, polydipsia NEURO: No history of headaches, syncope, paralysis, seizures or tremors Objective VITAL SIGNS (last 24hrs min/max): Temp Av.5 ?C (97.7 ?F) Min: 36.3 ?C (97.3 ?F) Max: 37.2 ?C (98.9 ?F) Pulse Av.1 Min: 61 Max: 80 No Data Recorded Cuff BP Min: 119/72 Max: 147/75 Pain Score: 2/10 Vital signs reviewed. Relevant comments- HDS NET FLUID BALANCE Intake/Output Summary (Last 24 hours) at 12/26/17 1725 Last data filed at 12/26/17 1500 Gross per 24 hour Intake 990.5 ml Output 725 ml Net 265.5 ml INDWELLING CATHETERS: Lines, Drains, and Airways Line Peripheral 12/24/17 1649 Admission to Hospital Short Right Hand 20 Gauge 2 days Peripheral 12/26/17 1515 Short Right Arm 20 Gauge less than 1 day Drain Indwelling Urinary Catheter 12/25/17 Assessment Herring 1 day PHYSICAL EXAM: Physical exam performed HEENT: Oral Mucosa: Moist mucous membranes and Dentures present Feeding Tube: No Eyes: PERRLA and Sclera White, EOMI Neck: Unremarkable; No adenopathy possible JVD Cardiovascular: Regular rhythm, distant Relevant Hemodynamic Data: HDS Respiratory: Fine crackles heard in bilateral bases on RA satting well Abdomen: Soft Bowel sounds present and Minimal tenderness noted in LLQ around known Hematoma, Scars noted and Outlines area of hematoma noted from prior teams Extremities: Edema- Yes 2+ above knees Peripheral Pulses- Present all extremities Capillary Refill- less than 3 seconds Skin: Abnormalities- Yes bruised noted at IV sights, Nails: mild changes noted in Nails bilaterally possible beginning of Koilonychia Breakdown- No Neurologic: Awake, oriented, Alert, Follows commands, Moving all extremities and CN2-12 intact, Nonfocal NUTRITION: NPO for now will reassess Enteral Feeds: No DATA: Diagnostic tests reviewed for today's visit: Most recent labs and imaging results. Most recent EKG Diagnostics (at OSH): -urine protein 2.3 g -FATOU negative, c-ANCA, p-ANCA negative -Renal u/s unrevealing -C3 low, C4 normal - Total protein 7, IgG 3273 H, IgA 349, IgM 159 - Free [place] 402.7 (H), Free Lambda 378.8 (H), Free [place]/Lambda ratio 1.06 -renal biopsy on 12/18 - -Glomeruli showing focal segmental mesangiolysis (3 of 28 glomeruli), vague nodularity (2 of 28 glomeruli) and a single cellular crescent (1 of 28 glomeruli). -Mild tubular injury. -Moderate interstitial fibrosis and tubular atrophy. -strong granular IgM and C3 staining on immunofluorescence, with weak granular staining for C1q and kappa and lambda light chains. -Electron microscopy with occasional, poorly definied electron- dense areas in mesangium. -Bone marrow Biopsy: Normocellular marrow with mild plasmacytosis. Iron-absent Peripheral blood-macrocytic anemia and thrombocytopenia. Flow cytometry study from [facility] shows no evidence for abnormal myeloid maturation or an increased blast population. There is no evidence for a lymphoproliferative disorder or plasma cell neoplasm. Cytogenetic studies are pending at this time While Here Labs Reticulocyte count: 2.4(elevated) Haptoglobin:<10 (low) LD: 330 (elevated) PT/INR:16/1.6 (elevated) PTT:38.7 (elevated) Ferritin:422(wnl) Iron: 140 (wnl) TIBC:<157 (low) Transf Sat:>89 (high) FATOU: Neg p-ANCA: (+) c-ANCA: (-) Urine prot:124(elevated) Alpha1/2 beta, gamma, glob: wnl [place]:464.1(elevated) Nicola:343(eleated) K/l Ratio1.35(wnl) C4:17(wnl) C3: 47 (Low) LABS: CBC, Coags, BMP, Mg, Phos Recent Labs 12/26/17 1754 12/26/17 1751 12/26/17 1750 12/26/17 1342 12/26/17 1229 12/26/17 0529 12/25/17 2154 WBC 3.62* 3.59* -- -- 4.00 2.68* -- -- HB 7.1* -- -- -- 8.0* 6.8* < > -- HCT 22.2* -- -- -- 25.4* 22.4* < > -- PLT 78* -- -- -- 80* 71* -- -- INR -- -- -- -- -- -- -- 1.6* APTT -- -- -- -- -- -- -- 38.7* NA -- -- 139 141 -- 138 -- -- K -- -- 5.2* 5.4* -- 5.7* < > -- CHLOR -- -- 112* 113* -- 114* -- -- CO2 -- -- 17* 16* -- 13* -- -- BUN -- -- 68* 67* -- 69* -- -- CREAT -- -- 5.43* 5.63* -- 4.79* -- -- GLUC -- -- 81 73* -- 108* -- -- CA -- -- 7.9* 8.4* -- 8.0* -- -- P -- -- -- -- -- 6.7* -- -- < > = values in this interval not displayed. Liver Function, Amylase, AND Lipase Recent Labs 12/25/17 0649 12/24/17 1618 TPROT 7.0 7.6 ALB -- 2.5* ALT -- 30 AST -- 42* ALKPHOS -- 205* TBILI -- 0.8 Cardiac Enzymes Recent Labs 12/26/17 1754 CK 125 MB 2.3 ABGs CULTURES: Blood: No growth to date Urine: No growth to date CXR FINDINGS: IMPRESSION: Lines, tubes, and devices: ?Left transvenous dual-chamber pacemaker. ? Status post median sternotomy, and left 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 ligation clip placement. ?Multiple clips overlie the left thoracoabdominal region, not visualized previously. ?Mildly lordotic projection. Lungs and pleura: ?Mid to lower lung zone hazy and heterogeneous opacities, with some interstitial markings, and may relate to bilateral pleural effusions, associated atelectasis and possible pulmonary edema versus infection or aspiration. Cardiomediastinal silhouette: ?Stable prominent cardiomediastinal silhouette. ?Question mild prominence of the central pulmonary arteries OTHER IMAGING: CT abd/Pelv IMPRESSION: Moderate LEFT rectus sheath hematoma Diffuse hepatic steatosis. 2.6 cm low-attenuation structure abutting the celiac, possibly an enlarged lymph node. ?Further evaluation with contrast-enhanced study should be considered. Cholelithiasis without evidence of acute cholecystitis Assessment/Plan Medication and Non-Pharmacologic VTE Prophylaxis/Anticoagulants 12/24/17 1615 vte non-pharmacologic prophylaxis - none indicated (nv,oh) 12/24/17 161 vte current anticoag therapy (nv,oh) 12/24/17 1615 activity - mobilize patient (nv,oh) VTE Prophylaxis: Contraindicated Possible active bleed in Hematoma PLANS FOR TODAY: PATIENT CHECKLIST ? Are restraints necessary: No ? Deep vein thrombosis prophylaxis administered: No. Contraindicated. ? Stress ulcer prophylaxis: Yes ? Nasogastric tube: No ? Herring catheter necessary: Yes ? Is central line essential: Yes, plan for IHD ? Plan discussed with assigned RN: Yes ? 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 Reviewed report with pathology- trying to obtain path slides for formal review. C3 low, ANCA + mild increase in MPO, fatou-, petar +. Broad differential PLAN: Appreciate Nephrology Recs: check cryoglobulins, DULCE, ds DNA hold preednisone at this time Increased PO4, please check urate add sevelamer 800mg PO QAC Initiating Dialysis Malnutrition of mild degree (HCC) 12/25/2017 - Present Hyperkalemia 12/26/2017 - Present Current Assessment AND Plan Initial admission K+ of 5.6 current 5.4 PLAN: Appreciate Nephrology Recs Will initiate Dialysis Rectus sheath hematoma 12/26/2017 - Present Current Assessment AND Plan moderate LEFT rectus sheath hematoma measuring 7.1 x 5.2 x 19 cm Surgery following PLAN: Appreciate Surgery Recs: -No indication for emergent surgical intervention -Check CBC Q6 h, transfuse PRN -If there is any concern for active bleeding, consider getting IR involved for localization/embolization -- Will get Abd ultrasound to evaluate If hematoma is enlarging/actively bleeding Anemia 12/26/2017 - Present Current Assessment AND Plan Hx of iron deficient anemia and B12 deficiency BM biopsy: Normocellular marrow with mild plasmacytosis. Iron-absent Peripheral blood-macrocytic anemia and thrombocytopenia. Flow cytometry study from [facility] shows no evidence for abnormal myeloid maturation or an increased blast population. There is no evidence for a lymphoproliferative disorder or plasma cell neoplasm. Smear reviewed. Notable for few schistocytes, yojana cells, rare spherocytes. Decreased platelets without clumping. Normal leukocytes Reticulocyte count: 2.4(elevated) Haptoglobin:<10 (low) PT/INR:16/1.6 (elevated) PTT:38.7 (elevated) Ferritin:422(wnl) Iron: 140 (wnl) TIBC:<157 (low) Transf Sat:>89 (high) Urine prot:124(elevated) Alpha1/2 beta, gamma, glob: wnl [place]:464.1(elevated) Nicola:343(eleated) K/l Ratio1.35(wnl) Most recent Hgb: 7.1 decreased from 8 Still not completely known cause: Hemolytic vs active bleed? PLAN: Appreciate Hematology recs: repeat LDH in am DIC labs: fib, d-dimer, deg products(ordered) Will check flow cytometry, IgG, IgA, IgM, PNH, LDH (ordered) Recommend LN excisional biopsy. Agree with holding steroids for now while we pursue biopsy to r/o lymphoproliferative process Check EPO (ordered for you) Will follow up on eluate of FELICIA give IV ferrlicet 125 mg daily x 5 days - ABD WALL U/S Repeat Hapto, Coags, get TEG Thrombocytopenia (HCC) 12/26/2017 - Present Current Assessment AND Plan Plts: 78 Shistocytes seen on Peripheral smear, BMbx: normocellular Possible Consumptive process w/ hemolytic anemia PLAN: Appreciate Hematology recs Lymphadenopathy 12/26/2017 - Present Current Assessment AND Plan Multiple enlarged LN seen on U/S and 2.6 LN seen abutting Celiac on CT abd/pel PLAN: Heme following Appreciate rec Recommend Biopsy, r/o Lymphoproliferative disease Atrial fibrillation (HCC) 12/26/2017 - Present Current Assessment AND Plan Previously on Eloquis, s/p PPM and DCCV in 04/2017 ChadsVASC:4 PLAN: Hold BP meds, and (AC) Eloquis for recent Hematoma CVA, old, dysphagia 12/26/2017 - Present Current Assessment AND Plan Hx of Dysphagia Currently NPO PLAN: 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 CAD (coronary artery disease) 12/26/2017 - Present Current Assessment AND Plan S/p CABG and AVReplacement Most recent echo: PLAN: Holding HTN meds Continue Statin Therapy HTN (hypertension) 12/26/2017 - Present Current Assessment AND Plan BP has been stable while in Hosp PLAN: Will hold Home meds for now and reinstitution if needed Heyd's syndrome (HCC) 12/26/2017 - Present Current Assessment AND Plan PLAN: Appreciate Hematology Recs Obesity, Class I, BMI 30-34.9 12/26/2017 - Present Medication and Non-Pharmacologic VTE Prophylaxis/Anticoagulants 12/26/17 194 pneumatic compression stockings (nv,ks) 12/26/17 194 activity - mobilize patient (nv,ks) 12/24/17 161 vte non-pharmacologic prophylaxis - none indicated (nv,ks) 12/24/17 161 vte current anticoag therapy (nv,ks) 12/24/17 161 activity - mobilize patient ([place]) VTE Prophylaxis: Contraindicated possible active bleed Plan of care discussed with: Attending SIGNATURE: Sebastien Pappas MD PATIENT NAME: Frank Rivera DATE: December 26, 2017 TIME: 8:36 PM PAGER/CONTACT #: [phone] [facility] STAFF PHYSICIAN NOTE OF PERSONAL INVOLVEMENT IN CARE I have reviewed the history and physical examination obtained and documented by the resident and I personally participated in the hernandez components. I have discussed the case and management of the patient's care. The following comments revise or confirm relevant hernandez components of the note. IMPRESSION: 62yo with HTN, Afib, s/p CABG, GI AVMs, AVR, SSS s/p PPM and remote Min en Y bypass admitted from OSH with IRINA and pancytopenia. No unifying diagnosis but c/f lymphoproliferative d/o. Transferred to MICU this evening for intitiation of HD and acute anemia. PLAN: IRINA: will place Acute HD line and start HD. Nephrology consult. Trend BMP. Acute blood loss anemia: has rectus sheath hematoma and e/o hemolysis. Will recheck hemolysis labs. Repeat CT abd. txf PRBCs. Recheck CBC post transfusion. PAncytopenia: heme following. Correct coagulopathy for procedure (HD line placement) This patient has a high probability of sudden, clinically significant deterioration, which requires the highest level of physician preparedness to intervene urgently. I managed/supervised life or organ supporting interventions that required frequent physician assessment. I devoted my full attention to the direct care of this patient for the amount of time indicated below. Time I spent with family or surrogate(s) is included only if the patient was incapable of providing the necessary information or participating in medical decision making. Time devoted to teaching and to any procedures I billed separately is not included. Critical Care Documentation: The patient has the following organ/system impairment(s): Acute blood loss and Acute kidney injury Time spent providing critical care services: 37 minutes. SIGNATURE: Martina Galvez MD [facility] PAGER:[phone] DATE of SERVICE: December 26, 2017 CBC AND DIFFERENTIAL Collected: 12/26/2017 Status: F Source: [place] 5:54 PM [facility] REPOSITORY TYPE CODE TESTS RESULT OUT OF REFERENCE UNITS RANGE LAB WBC 3.70-11.00 k/uL Low WBC 3.62 LAB RBC 4.20-6.00 m/uL Low RBC 2.32 LAB HGB 13.0-17.0 g/dL Low Hemoglobin 7.1 LAB HCT 39.0-51.0 % Low Hematocrit 22.2 LAB MCV 80.0-100.0 fL MCV 95.7 LAB MCH 26.0-34.0 pG MCH 30.6 LAB MCHC 30.5-36.0 g/dL MCHC 32.0 LAB RDWCV 11.5-15.0 % RDW-CV High 19.1 LAB PLTCT 150-400 k/uL Low Platelet Count 78 Result Comment: No clot detected. LAB MPV 9.0-12.7 fL MPV 10.7 LAB ANEUT % Neut% 68.0 LAB AANEUT 1.45-7.50 k/uL Abs Neut 2.45 LAB ALYMP % Lymph% 24.3 LAB AALYMP 1.00-4.00 k/uL Abs Low Lymph 0.88 LAB AMONO % Pope% 7.7 LAB AAMONO <0.87 k/uL Abs Pope 0.28 LAB AEOS % Eosin% 0.0 LAB AAEOS <0.46 k/uL Abs Eosin <0.03 LAB ABASO % Baso% 0.0 LAB AABASO <0.11 k/uL Abs Baso <0.03 LAB AUNRBC 0 /100 WBC NRBCs 0.0 LAB ABNRBC <0.01 k/uL Absolute nRBC <0.01 LAB DTYP DTYPE Auto Diff Performed By: #### CBCDIF #### [place] [id number] CK, TOTAL AND CKMB Collected: 12/26/2017 Status: F Source: [place] 5:54 PM [facility] REPOSITORY TYPE CODE TESTS RESULT OUT OF REFERENCE UNITS RANGE LAB CK 51-298 U/L CK 125 LAB MB <7.7 ng/mL MB 2.3 LAB CKMBRI 0.0-4.0 % CK MB % 1.8 Performed By: #### CKCKMB #### [place] [address] DULCE ANTIBODY PANEL Collected: 12/26/2017 Status: F Source: [place] 5:54 PM [facility] REPOSITORY TYPE CODE TESTS RESULT OUT OF REFERENCE UNITS RANGE LAB SMIB <1.0 AI Sm Antibody <0.2 Result Comment: NEGATIVE Negative: <1.0 AI Positive: >0.9 AI LAB RNPIB <1.0 AI PEDIATRIC UROLOGIST Antibody 0.2 Result Comment: NEGATIVE Negative: <1.0 AI Positive: >0.9 AI LAB SSAIB <1.0 AI SSA Antibody <0.2 Result Comment: NEGATIVE Negative: <1.0 AI Positive: >0.9 AI LAB SSBIB <1.0 AI SSB Antibody <0.2 Result Comment: NEGATIVE Negative: <1.0 AI Positive: >0.9 AI LAB CENTIB <1.0 AI Centromere <0.2 Result Comment: NEGATIVE Negative: <1.0 AI Positive: >0.9 AI LAB SCLIB <1.0 AI Scleroderma IgG Ab 0.9 Result Comment: NEGATIVE Negative: <1.0 AI Positive: >0.9 AI LAB JO1IB <1.0 AI MELBA 1 Antibody <0.2 Result Comment: NEGATIVE Negative: <1.0 AI Positive: >0.9 AI LAB RRNPIB <1.0 AI Ribosomal PEDIATRIC UROLOGIST <0.2 Result Comment: NEGATIVE Negative: <1.0 AI Positive: >0.9 AI LAB CHRMIB <1.0 AI Chromatin Antibody 0.4 Result Comment: NEGATIVE Negative: <1.0 AI Positive: >0.9 AI Performed By: #### ENAID #### [place] [id number] D DIMER Collected: 12/26/2017 Status: F Source: [place] 5:53 [facility] REPOSITORY TYPE CODE TESTS RESULT OUT OF REFERENCE UNITS RANGE LAB DDMER <500 ng/mL FEU High D dimer 1910 Result Comment: The D-dimer assay can be used to exclude pulmonary embolism (PE) and deep vein thrombosis (DVT) in conjunction with a low pre-test probability. For patients with a suspected DVT, a D Dimer level below 500 ng/mL FEU has a negative predictive value of >=99.0%, a sensitivity of >=97.0%, and a specificity of >=35.8%. For patients with a xiong spected PE, a D Dimer level below 500 ng/mL FEU has a negative predictive value of >=98.6%, a sensitivity of >=96.6%, and a specificity of >=38.9%. Performed By: #### DDMER, FIBCT, LD6, FDP, SERIMM, EPO #### [facility] [employer] [address] [place], [place] [address] FIBRINOGEN Collected: 12/26/2017 Status: F Source: [place] 5:53 PM [facility] REPOSITORY TYPE CODE TESTS RESULT OUT OF REFERENCE UNITS RANGE LAB FIBCT 200-400 mg/dL Low Fibrinogen 115 Performed By: #### DDMER, FIBCT, LD6, FDP, SERIMM, EPO #### [facility] [employer] [address] [place], [place] [address] LD Collected: 12/26/2017 Status: F Source: [facility] 5:53 PM [facility]IN [facility] REPOSITORY TYPE CODE TESTS RESULT OUT OF RANGE REFERENCE UNITS LAB LD 135-225 U/L High LD 330 Performed By: #### DDMER, FIBCT, LD6, FDP, SERIMM, EPO #### [facility] [address] [place] [address] DEGRAD PRODUCT Collected: 12/26/2017 Status: F Source: [place] 5:53 PM [facility] REPOSITORY TYPE CODE TESTS RESULT OUT OF REFERENCE UNITS RANGE LAB FDP <10 ug/ml Degrad Product > 20 <40 Performed By: #### DDMER, FIBCT, LD6, FDP, SERIMM, EPO #### [place] [address] IMMUNOGLOBULINS PIETER Collected: 12/26/2017 Status: F Source: [place] 5:53 PM [facility] REPOSITORY TYPE CODE TESTS RESULT OUT OF RANGE REFERENCE UNITS LAB IGG 717-1411 mg/dL High IgG 2890 LAB IGA 78-391 mg/dL IgA 327 LAB IGM 53-334 mg/dL IgM 145 Performed By: #### DDMER, FIBCT, LD6, FDP, SERIMM, EPO #### [facility] [address] [place] [address] EPO Collected: 12/26/2017 Status: F Source: [place] 5:53 PM [facility] REPOSITORY TYPE CODE TESTS RESULT OUT OF RANGE REFERENCE UNITS LAB EPO 2.6-18.5 mIU/mL EPO 16.9 Result Comment: Test analyzed by the Jena DxI method. Performed By: #### DDMER, FIBCT, LD6, FDP, SERIMM, EPO #### [place] [address] PB LG LEUK MARKERS Collected: 12/26/2017 Status: F Source: [place] 5:51 PM [facility] REPOSITORY TYPE CODE TESTS RESULT OUT OF RANGE REFERENCE UNITS LAB WBC 3.70-11.00 k/uL Low WBC 3.59 Result Comment: No clot detected. LAB PBLGL PB LG The following number LEUK MARKERS of cluster designated antibodies were used for the definition of the reported populations: CD3, CD4, CD5, CD8, CD13, CD16, CD19, CD34, CD45, CD56, [place], Lambda. Result Comment: Reviewed by Daniel Tipton M.D., Ph.D ([id number]) Results available in [facility] under the Surgical Pathology Test listed in the Laboratory Tab. Performed By: #### PBLGLY #### [facility] [address] [place], [place] [address] BASIC METABOLIC PANL Collected: 12/26/2017 Status: F Source: [place] 5:50 PM [facility] REPOSITORY TYPE CODE TESTS RESULT OUT OF REFERENCE UNITS RANGE LAB GLU 74-99 mg/dL Glucose 81 Result Comment: The [place] Diabetes Association (ADA) provides guidance for cutoff values for fasting glucose and random glucose. The ADA defines fasting as no caloric intake for at least 8 hours. Fas ting plasma glucose results between 100 to 125 mg/dL indicate increased risk for diabetes (prediabetes). Fasting plasma glucose results greater than or equal to 126 mg/dL meet the criteria for diagnosis of diabetes. In the absence of unequivocal hyperglycemia, results should be confirmed by repeat testing. In a patient with classic symptoms of hyperglycemia or hyperglycemic crisis, random plasma glucose results greater than or equal to 200 mg/dL meet the criteria for diagnosis of diabetes. Reference: Standards of Medical Care in Diabetes 2016, [place] Diabetes Association. Diabetes Care. 2016.39(Suppl 1). LAB BUN 9-24 mg/dL BUN High 68 LAB CRET 0.73-1.22 mg/dL Creatinine High 5.43 LAB NA 136-144 mmol/L Sodium 139 LAB K 3.7-5.1 mmol/L Potassium High 5.2 LAB CL 97-105 mmol/L Chloride High 112 LAB CO2 22-30 mmol/L Low CO2 17 LAB AGAP 9-18 mmol/L Anion Gap 10 LAB CA 8.5-10.2 mg/dL Low Calcium, Total 7.9 LAB GFRAA eGFR- Amer. 13 LAB GFRNAA . eGFR-All Other Races 11 Result Comment: eGFR (Estimated GFR) Units of measure: mL/min/1.73 meters squared eGFR is derived from the reexpressed MDRD Study equation using the following parameters: serum creatinine, age, gender and race. The creatinine assay has been calibrated to be traceable to IDMS. An eGFR <60 mL/min/1.73m2 for >3 months is consistent with chronic kidney disease. Refer to KDOQI guidelines for clinical interpretation. In patients with unstable renal function, e.g. those with acute kidney injury, the eGFR may not accurately reflect actual GFR. Performed By: #### BMP #### [facility] [address] [place], [place] [address] US ABD SPLEEN -NB Observed: 12/26/2017 Status: F Source: [place] 2:16 PM [facility] REPOSITORY * * *Final Report* * * DATE OF EXAM: Dec 26 2017 2:16PM [facility] 1232 - US ABD SPLEEN -NB / PROCEDURE REASON: * * * * * Physician Interpretation * * * * EXAMINATION: RIGHT UPPER QUADRANT AND SPLEEN ULTRASOUND CLINICAL HISTORY: Abnormal LFTs, concern for cholecystitis TECHNIQUE: Sonography of the right upper quadrant and spleen was performed. Images were obtained and stored in a permanent archive. MQ: URUQ_1 COMPARISON: CT abdomen and pelvis 12/25/2017. RESULT: Pancreas: Normal sonographic appearance. Portions obscured: tail Liver: Echotexture: Normal, homogeneous. Echogenicity: Increased Surface contour: Smooth Lesions: None. Biliary: No intrahepatic biliary duct dilation. CBD: 0.6 cm at the hilum. Gallbladder: Dilated, measuring up to 6.6 cm in transverse dimension. -Contents: Cholelithiasis -Wall: Normal 3 mm -Other: No pericholecystic fluid. Negative sonographic Kruger's sign. Right Kidney: No hydronephrosis. Ascites: Trace, perihepatic. Spleen: The craniocaudal length of the spleen is 10.1 cm, normal. There are no splenic lesions. IMPRESSION: CHOLELITHIASIS IN A DISTENDED GALLBLADDER WITHOUT OTHER EVIDENCE OF ACUTE CHOLECYSTITIS. DIFFUSE HEPATIC STEATOSIS. Loss Prevention Operations Manager: PSCB Transcribe Date/Time: Dec 26 2017 2:28P Dictated by : ARAMIS BEDOLLA MD This examination was interpreted and the report reviewed and electronically signed by: CY DIAZ MD on Dec 26 2017 6:24PM EST [id number] US ABD RIGHT UPPER Observed: 12/26/2017 Status: F Source: [facility] 2:00 PM [facility] REPOSITORY * * *Final Report* * * DATE OF EXAM: Dec 26 2017 2:00PM U 1032 - US ABD RIGHT UPPER QUADRANT / PROCEDURE REASON: Abn liver function tests (LFTs) * * * * Physician Interpretation * * * * EXAMINATION: RIGHT UPPER QUADRANT AND SPLEEN ULTRASOUND CLINICAL HISTORY: Abnormal LFTs, concern for cholecystitis TECHNIQUE: Sonography of the right upper quadrant and spleen was performed. Images were obtained and stored in a permanent archive. MQ: URUQ_1 COMPARISON: CT abdomen and pelvis 12/25/2017. RESULT: Pancreas: Normal sonographic appearance. Portions obscured: tail Liver: Echotexture: Normal, homogeneous. Echogenicity: Increased Surface contour: Smooth Lesions: None. Biliary: No intrahepatic biliary duct dilation. CBD: 0.6 cm at the hilum. Gallbladder: Dilated, measuring up to 6.6 cm in transverse dimension. -Contents: Cholelithiasis -Wall: Normal 3 mm -Other: No pericholecystic fluid. Negative sonographic Kruger's sign. Right Kidney: No hydronephrosis. Ascites: Trace, perihepatic. Spleen: The craniocaudal length of the spleen is 10.1 cm, normal. There are no splenic lesions. IMPRESSION: CHOLELITHIASIS IN A DISTENDED GALLBLADDER WITHOUT OTHER EVIDENCE OF ACUTE CHOLECYSTITIS. DIFFUSE HEPATIC STEATOSIS. Loss Prevention Operations Manager: PSCB Transcribe Date/Time: Dec 26 2017 2:28P Dictated by : ARAMIS BEDOLLA MD This examination was interpreted and the report reviewed and electronically signed by: CY DIAZ MD on Dec 26 2017 6:24PM EST [id number] BASIC METABOLIC PANL Collected: 12/26/2017 Status: F Source: [place] 1:42 PM [facility] REPOSITORY TYPE CODE TESTS RESULT OUT OF REFERENCE UNITS RANGE LAB GLU 74-99 mg/dL Low Glucose 73 Result Comment: The [place] Diabetes Association (ADA) provides guidance for cutoff values for fasting glucose and random glucose. The ADA defines fasting as no caloric intake for at least 8 hours. Fas ting plasma glucose results between 100 to 125 mg/dL indicate increased risk for diabetes (prediabetes). Fasting plasma glucose results greater than or equal to 126 mg/dL meet the criteria for diagnosis of diabetes. In the absence of unequivocal hyperglycemia, results should be confirmed by repeat testing. In a patient with classic symptoms of hyperglycemia or hyperglycemic crisis, random plasma glucose results greater than or equal to 200 mg/dL meet the criteria for diagnosis of diabetes. Reference: Standards of Medical Care in Diabetes 2016, [place] [employer]. Diabetes Care. 2016.39(Suppl 1). LAB BUN 9-24 mg/dL BUN High 67 LAB CRET 0.73-1.22 mg/dL Creatinine High 5.63 LAB NA 136-144 mmol/L Sodium 141 LAB K 3.7-5.1 mmol/L Potassium High 5.4 LAB CL 97-105 mmol/L Chloride High 113 LAB CO2 22-30 mmol/L Low CO2 16 LAB AGAP 9-18 mmol/L Anion Gap 12 LAB CA 8.5-10.2 mg/dL Low Calcium, Total 8.4 LAB GFRAA eGFR- Amer. 13 LAB GFRNAA . eGFR-All Other Races 10 Result Comment: eGFR (Estimated GFR) Units of measure: mL/min/1.73 meters squared eGFR is derived from the reexpressed MDRD Study equation using the following parameters: serum creatinine, age, gender and race. The creatinine assay has been calibrated to be traceable to IDMS. An eGFR <60 mL/min/1.73m2 for >3 months is consistent with chronic kidney disease. Refer to KDOQI guidelines for clinical interpretation. In patients with unstable renal function, e.g. those with acute kidney injury, the eGFR may not accurately reflect actual GFR. Performed By: #### BMP #### [facility] [address] [place], [place] [address] CONSULT PROG Observed: 12/26/2017 Status: COMPLETED Source: [place]AN[place] 1:31 PM [facility] REPOSITORY O ID: [id number] Author: Adry Greer Service: Hematology Author Type: Physician Type: Consult Progress Note Filed: 12/26/2017 4:23 PM Note Text: [facility] Inpatient Consult Note PATIENT NAME: Frank Rivera ATTENDING PHYSICIAN: Dr. 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 Urine remains dark tea colored LE swelling w/o improvement No confusion, chest pain, sob, n/v CT a/p notable for rectus sheath hematoma and 2.6 cm ?enlarged LN abutting the celiac LE dopplers showed b/l groin LAD HISTORY OF PRESENT ILLNESS: Mr. Rivera is a 62 year old man with history of afib s/p PPM and DCCV, on apixaban, HTN, hypothyroid, aortic stenosis s/p bioprosthetic ACR and RUDY ligation, sick sinus syndrome, h/o CVA, retinal embolism, h/o Min-en-Y bypass, chronic iron deficiency anemia, UGIB (1997, 2014, 2015) who presented to OSH with several weeks of worsening fatigue and shortness of breath. PCP ordered a CBC which was notable for Hgb ~7.5. He was admitted to OSH for further work up. On presentation he was noted to have guaiac pos stool and IRINA with Cr 4.12/BUN 70. He underwent GI work up with EGD, colonoscopy, and tagged RBC scan which were all negative. Renal function did not improve and he ultimately underwent a renal biopsy with prelim concerns for C3 nephropathy. A BMBX was also performed looking for plasma cell neoplasm given anemia and acute renal failure. Notable Labs at OSH on 12/23: CBC WBC 3.8, Hg 8.4, Plt 84 CMP Na 141, K 5.6, Chloride 119, CO2 17, BUN 60, Cr 3.71 Total protein 7 IgG 3273 H IgA 349 IgM 159 Albumin 2.4 Albmin/glboulin 0.6 Alpha 1 gloublins Lis 0.2 Alpha 2 globulins Lis 0.5 Beta glboluins Lis 0.87 Gamma globulins 4.6 (H) Complement C3 64 (L) Complement C4 17 Free [place] 402.7 (H) Free Lambda 378.8 (H) Free [place]/Lambda ratio 1.06 ? 12/24 labs: CBC shows WBC 3.2, Hg 7.8, Plt 80 CMP shows Na 141, K 5.3, CO2 17, Chlroide 118, BUN 61, Cr 4.07, Phosphorsu 5.5 Bone marrow biopsy (full results in patient record on nursing floor): Normocellular marrow with mild plasmacytosis. Iron-absent Peripheral blood-macrocytic anemia and thrombocytopenia. Flow cytometry study from [facility] shows no evidence for abnormal myeloid maturation or an increased blast population. There is no evidence for a lymphoproliferative disorder or plasma cell neoplasm. Cytogenetic studies are pending at this time. ? Kidney biopsy (full report in his patient record on nursing floor): -Glomeruli showing focal segmental mesangiolysis (3 of 28 glomeruli), vague nodularity (2 of 28 glomeruli) and a single cellular crescent (1 of 28 glomeruli). -Mild tubular injury. -Moderate interstitial fibrosis and tubular atrophy. -strong granular IgM and C3 staining on immunofluorescence, with weak granular staining for C1q and kappa and lambda light chains. -Electron microscopy with occasional, poorly definied electron- dense areas in mesangium. ? Patient reporting lower abd pain, more significant on Left lower quadrant which started today. Reports decreased urine output. Urine that he does make is tea colored, no cruz blood, non-foamy. He reports fluid retention and 10+lb weight gain since hospitalization. Denies recent tobacco or alcohol intake. 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 He has received 6U PRBC and 2U PLT transfusions at OSH prior to transfer. ROS: 01/03 reviewed and negative except as above ALLERGIES ALLERGIES Allergen Reactions - Penicillin Hives MEDICATIONS Current Facility-Administered Medications: polyethylene glycol 3350 17 g packet (MIRALAX, GLYCOLAX) 17 g ORAL DAILY ciprofloxacin 400 mg in D5W 200 mL (CIPRO) 400 mg INTRAVENOUS q 24 HR metroNIDAZOLE 500 mg PREMIX piggyback (FLAGYL) 500 mg INTRAVENOUS q 8 H tamsulosin ER 0.4 mg cap(s) (FLOMAX) 0.4 mg ORAL DAILY morphine 2 mg injection 2 mg INTRAVENOUS q 4 H PRN acetaminophen 650 mg tab(s) (TYLENOL) 650 mg ORAL q 6 H PRN 0.9% NaCl 3-5 mL 3-5 mL INTRAVENOUS q [address] 40 mg tab(s) (PROTONIX) 40 mg ORAL BID levothyroxine 200 mcg tab(s) (SYNTHROID) 200 mcg ORAL BEFORE BREAKFAST DAILY atorvastatin 80 mg tab(s) (LIPITOR) 80 mg ORAL AT BEDTIME PHYSICAL EXAMINATION: BP 119/72 Pulse 68 Temp 36.4 ?C (97.5 ?F) (Oral) Resp 18 Ht 193 cm (6' 3.98) Wt 113 kg (249 lb 1.9 oz) SpO2 95% BMI 30.34 kg/m? Intake/Output Summary (Last 24 hours) at 12/26/17 1332 Last data filed at 12/26/17 1000 Gross per 24 hour Intake 770.5 ml Output 375 ml Net 395.5 ml General: Elderly man, sitting at side of bed. In NAD HEENT: PERRLA, EOMI, anicteric sclera, MMM Neck: Supple CVS: (+)S1, S2, RRR. No murmurs, rubs, gallops Resp: No use of accessory muscles Abd: Soft, LLQ abd pain improved MSK: +edema. Neuro: AAOx3, no acute focal deficits. Skin: Warm, dry, intact. No rashes. No abnormal bleeding/bruising. Lines without oozing. LABORATORY DATA Recent Labs 12/26/17 1229 12/26/1752812/25/17232812/25/17 17112/25/1749 WBC 4.00 2.68* -- 3.86 4.05 RBC 2.62* 2.23* -- 2.68* 2.75* HB 8.0* 6.8* 7.2* 8.4* 8.6* HCT 25.4* 22.4* 23.2* 26.3* 26.9* PLT 80* 71* -- 84* 86* MCV 96.9 100.4* -- 98.1 97.8 MCH 30.5 30.5 -- 31.3 31.3 MCHC 31.5 30.4* -- 31.9 32.0 RDWCV 19.1* 19.1* -- 19.8* 19.6* MPV 10.2 10.3 -- 9.7 11.1 NEUTP 69.7 77.6 -- -- 71.1 ABSNEUT 2.77 2.06 -- -- 2.88 LYMPHP 21.8 19.4 -- -- 21.0 MONOP 8.5 3.0 -- -- 7.9 EODINP 0.0 0.0 -- -- 0.0 BASOP 0.0 0.0 -- -- 0.0 ABSMONO 0.34 0.08 -- -- 0.32 ABSEOSIN <0.03 <0.03 -- -- <0.03 ABSBASO <0.03 <0.03 -- -- <0.03 Recent Labs 12/26/1752812/25/172328 12/05/18 2154 12/25/17 0649 12/24/17 1618 NA 138 -- -- 136 -- 137 K 5.7* 5.6* -- 5.4* < > 5.6* CHLOR 114* -- -- 110* -- 110* CO2 13* -- -- 14* -- 16* CREAT 4.79* -- -- 4.52* -- 4.29* BUN 69* -- -- 64* -- 62* GLUC 108* -- -- 84 -- 117* P 6.7* -- -- -- -- -- TPROT -- -- -- 7.0 -- 7.6 ALB -- -- -- -- -- 2.5* CA 8.0* -- -- 7.9* -- 8.2* ALKPHOS -- -- -- -- -- 205* TBILI -- -- -- -- -- 0.8 AST -- -- -- -- -- 42* ALT -- -- -- -- -- 30 PTSEC -- -- 16.0* -- -- -- INR -- -- 1.6* -- -- -- APTT -- -- 38.7* -- -- -- < > = values in this interval not displayed. Component Latest Ref Rng AND Units 12/24/2017 c-ANCA Fluorescence Negative Negative p-ANCA Fluorescence Negative Positive (A) Proteinase-3 Antibody <1.0 AI <0.2 Myeloperoxidase Antibody (MPO) <1.0 AI 0.3 Interpretation (ANCA) Anti Myeloperoxidase enzyme immunoassay result within normal limits but P ANCA . . . Staff Review (ANCA) Reviewed by Levy Lipscomb MD ([id number]) DAGT, Polyspecific AHG POS (microscopic) Order Type Blood Bank Blood Bank DAGT, Anti-IgG POS (microscopic) DAGT, Anti-C3b,C3d POS (microscopic) [place] Free, Serum 3.30 - 19.40 mg/L 464.1 (H) Lambda Free, Serum 5.7 - 26.3 mg/L 343.0 (H) K/L Ratio, Serum 0.26 - 1.65 1.35 FATOU Negative Negative FATOU Titer Negative Negative FATOU Pattern Not applicable for negative result. Retic % 0.4 - 2.0 % 1.5 Abs Retic 0.0180 - 0.1000 M/uL 0.043 LD 135 - 225 U/L 408 (H) Haptoglobin 31 - 238 mg/dL <10 (L) NT Pro BNP <125 pg/mL 31,933 (H) Proteinase 3 Antibody <1.0 AI Account Credited C3 86 - 166 mg/dL 47 (L) C4 13 - 46 mg/dL 17 CANCA (PR3) Reflex Billed for services performed PANCA (MPO) Reflex Billed for services performed PATHOLOGY: IMAGING: Reviewed in [facility] ASSESSMENT AND PLAN: Mr. Rivera is a 62 year old man with history of afib s/p PPM and DCCV, on apixaban, HTN, hypothyroid, aortic stenosis s/p bioprosthetic ACR and RUDY ligation, sick sinus syndrome, h/o CVA, retinal embolism, h/o Min-en-Y bypass, chronic iron deficiency anemia, UGIB (1997, 2014, 2015) who presented to OSH with several weeks of worsening fatigue and shortness of breath. Found to have acute kidney injury and throbocytopenia and anemia refractory to blood transfusions. Hematology consulted for autoimmune hemolytic anemia. - Smear reviewed. Notable for few schistocytes, yojana cells, rare spherocytes. Decreased platelets without clumping. Normal leukocytes. - CT a/p with rectus sheath hematoma. Pt denies any procedures or injections into abd. Unclear why he would develop a spontaneous hematoma without overt evidence of coagulopathy. - CT a/p and LE dopplers also showed LAD as noted above. Will need to r/o lymphoproliferative disorder. Recommendations: - CBC+diff daily, repeat LDH in am. - Will check DIC labs: fib, d-dimer, deg products (orderd for you) - Will check flow cytometry, IgG, IgA, IgM, PNH, LDH (ordered for you) - Iron studies in process - Recommend LN excisional biopsy. Agree with holding steroids for now while we purse biopsy to r/o lymphoproliferative process - Check EPO (ordered for you) - Will follow up on eluate of FELICIA - There may be some contribution due to chronic iron deficiency. Would give IV ferrlicet 125 mg daily x 5 days. Patient seen and discussed with staff, Dr. Greer. Luciano Palmer MD Fellow, Hematology and Medical Oncology Pager: [phone] ATTENDING ATTESTATION: I have reviewed the data, obtained PMH, PFSH, and ROS, seen and examined the patient to confirm the findings and plan as outlined by Dr. Palmer except as specifically stated. Patient feeling tired; worried about his kidneys Herring bag with tea-colored urine Legs remains quite edematous abd sore on L Back without any bruising/sandoval from old kidney or marrow biopsy sites Impression: Anemia - low retics and probably low epo due to renal disease. Given low iron on marrow biopsy would supplement to ensure that is not a concern. Newly-found nodes may be worth a biopsy mark L groin node of 2.3 x 1.8 x 0.7 cm. Would get flow cytometry on his peripheral bloodas that can sometimes reveal clonal lymphs. Would also like to be immunoglobulin evaluation and also PNH flow given tea-colored urine. Awaiting eluate from BB of slight Ig found on his RBCs. Plan: Awaiting many test results Will f/u with you Adry Greer MD, FACP Staff Wind Development Director Pager [phone] Date of Service 12/26/2017 Time of Service 4:18 PM CBC AND DIFFERENTIAL Collected: 12/26/2017 Status: F Source: PLANO 12:29 PM [facility] REPOSITORY TYPE CODE TESTS RESULT OUT OF REFERENCE UNITS RANGE LAB WBC 3.70-11.00 k/uL WBC 4.00 LAB RBC 4.20-6.00 m/uL Low RBC 2.62 LAB HGB 13.0-17.0 g/dL Low Hemoglobin 8.0 LAB HCT 39.0-51.0 % Low Hematocrit 25.4 LAB MCV 80.0-100.0 fL MCV 96.9 LAB MCH 26.0-34.0 pG MCH 30.5 LAB MCHC 30.5-36.0 g/dL MCHC 31.5 LAB RDWCV 11.5-15.0 % RDW-CV High 19.1 LAB PLTCT 150-400 k/uL Low Platelet Count 80 Result Comment: No clot detected. LAB MPV 9.0-12.7 fL MPV 10.2 LAB ANEUT % Neut% 69.7 LAB AANEUT 1.45-7.50 k/uL Abs Neut 2.77 LAB ALYMP % Lymph% 21.8 LAB AALYMP 1.00-4.00 k/uL Abs Low Lymph 0.87 LAB AMONO % Pope% 8.5 LAB AAMONO <0.87 k/uL Abs Pope 0.34 LAB AEOS % Eosin% 0.0 LAB AAEOS <0.46 k/uL Abs Eosin <0.03 LAB ABASO % Baso% 0.0 LAB AABASO <0.11 k/uL Abs Baso <0.03 LAB AUNRBC 0 /100 WBC NRBCs 0.0 LAB ABNRBC <0.01 k/uL Absolute nRBC <0.01 LAB DTYP DTYPE Auto Diff Performed By: #### CBCDIF #### [place] [address] URIC ACID Collected: 12/26/2017 Status: F Source: PLANO 12:20 PM [facility] REPOSITORY TYPE CODE TESTS RESULT OUT OF RANGE REFERENCE UNITS LAB URIC 4.0-8.1 mg/dL High Uric Acid 10.2 Performed By: #### URIC, DNAAB, CRYOQT #### [place] [address] DNA ANTIBODY Collected: 12/26/2017 Status: F Source: PLANO 12:20 PM [facility] REPOSITORY TYPE CODE TESTS RESULT OUT OF REFERENCE UNITS RANGE LAB DNAAB1 <30 IU/mL High DNA Antibody 40 Result Comment: Equivocal for ds DNA Antibodies Negative: <30 IU/mL Equivocal: 30-74 IU/mL Positive: >74 IU/mL Performed By: #### URIC, DNAAB, CRYOQT #### [place] [address] CRYOGLOBULIN Collected: 12/26/2017 Status: F Source: PLANO 12:20 PM [facility] REPOSITORY TYPE CODE TESTS RESULT OUT OF REFERENCE UNITS RANGE LAB CRYOQ 0-50 ug/mL Cryoglobulin High 216 Result Comment: This test was developed and its performance characteristics determined by [facility]'s Vasyl Ruiz [facility] Pathology [facility] Laboratory [facility] [place] ([facility]). It has not been cleared or approved by the FDA. -[facility] is regulated under CLIA as qualified to perform high-complexity testing. This test is used for clinical purposes. It should not be regarded as investigational or for research. Performed By: #### URIC, DNAAB, CRYOQT #### [facility] [address] [place], [place] [address] CONSULT PROG Observed: 12/26/2017 Status: COMPLETED Source: PLANO 9:37 AM [facility] REPOSITORY HNO ID: [id number] Author: Tati Zuñiga Service: General Surgery Author Type: Resident Type: Consult Progress Note Filed: 12/26/2017 9:40 AM Note Text: Attestation signed by Vasyl Lion at 12/27/2017 4:45 PM Addendum: I have reviewed the history and physical examination obtained and documented by the resident and I personally participated in the hernandez components. I have discussed the case and management of the patient's care. The following comments revise or confirm relevant hernandez components of the note. CC: Abdominal pain HPI: Hgb drop felt to be due to hemolysis. Hematoma size is stable. Still having abdominal tenderness in LLQ around site of hematoma. No nausea or vomiting. Plan: - Continue supportive care - No indication for surgery at this time - Hold anticoagulation - If develops signs of bleeding from expanding hematoma recommend calling IR first for angioembolization - Will sign off, please call with questions or if clinical picture changes SIGNATURE: Willie Lion MD B surgery Pager: [phone] [facility] GENERAL SURGERY PROGRESS NOTE Frank Rivera [id number] Hospital Day: 3 ASSESSMENT AND PLAN: 62 year old male w PMHX of a fib s/p PPM and DCCV on apixaban 5mg BID (last dose 1 week ago), Ao stenosis s/p bioprosthetic ACR and RUDY ligation, sick sinus syndrome, h/o CVA, retinal embolism, HTN, hypothyroidism, remote gastric bypass (1995), chronic iron deficiency anemia, UGIB (1997, 2014, 2015), who presented to OSH with worsening fatigue and SOB. Currently admitted with IRINA. General surgery consulted for spontaneous rectus sheath hematoma, which is resolving on exam. Patient hemodynamically stable. ? -No indication for emergent surgical intervention -Check CBC Q6 h, transfuse PRN -Serial abdominal exams -If there is any concern for active bleeding, consider getting IR involved for localization/embolization -Will continue to follow Tati Zuñiga MD, PGY1 Acute Care Surgery Service Pager [phone] till 6pm (on Wednesdays: 7pm) nights/ weekends pager [phone] ? Subjective INTERVAL EVENTS: Pain and swelling improving. Increased oxygen requiring overnight. Objective PHYSICAL EXAM: BP 132/54 Pulse 67 Temp 36.5 ?C (97.7 ?F) (Oral) Resp 18 Ht 193 cm (6' 3.98) Wt 113 kg (249 lb 1.9 oz) SpO2 95% BMI 30.34 kg/m? GEN: alert and in no acute distress HEENT: Normocephalic, Atraumatic, sclera anicteric PULM: Unlabored breathing on 3L NC CV: hemodynamically stable ABD: Soft, indurated area decreased relative to outline made overnight, mildly tender to palpation EXT: warm and well perfused, no jaundice, no cyanosis, diffuse pitting edema NEURO: Awake, Alert DATA: Lines, Drains, and Airways Line Peripheral 12/24/17 1649 Admission to Hospital Short Right Hand 20 Gauge 1 day Drain Indwelling Urinary Catheter 12/25/17 Assessment Herring 1 day Medications: Reviewed Current hospital medications: phytonadione 2.5 mg oral liquid (VITAMIN K) 2.5 mg ORAL ONCE polyethylene glycol 3350 17 g packet (MIRALAX, GLYCOLAX) 17 g ORAL DAILY sodium polystyrene sulfonate (with sorbitol) 30 g liquid (SPS) 30 g ORAL ONCE ciprofloxacin 400 mg in D5W 200 mL (CIPRO) 400 mg INTRAVENOUS q 24 HR metroNIDAZOLE 500 mg PREMIX piggyback (FLAGYL) 500 mg INTRAVENOUS q 8 H tamsulosin ER 0.4 mg cap(s) (FLOMAX) 0.4 mg ORAL DAILY morphine 2 mg injection 2 mg INTRAVENOUS q 4 H PRN acetaminophen 650 mg tab(s) (TYLENOL) 650 mg ORAL q 6 H PRN 0.9% NaCl 3-5 mL 3-5 mL INTRAVENOUS q [address] 40 mg tab(s) (PROTONIX) 40 mg ORAL BID levothyroxine 200 mcg tab(s) (SYNTHROID) 200 mcg ORAL BEFORE BREAKFAST DAILY atorvastatin 80 mg tab(s) (LIPITOR) 80 mg ORAL AT BEDTIME Recent Labs 12/26/17 0529 12/25/17 2329 12/25/17 2154 12/25/17 1718 12/25/17 0649 12/24/17 1618 WBC 2.68* -- -- 3.86 4.05 < > 3.28* HB 6.8* 7.2* -- 8.4* 8.6* < > 8.6* HCT 22.4* 23.2* -- 26.3* 26.9* < > 27.2* PLT 71* -- -- 84* 86* < > 90* NA 138 -- -- -- 136 -- 137 K 5.7* 5.6* -- -- 5.4* < > 5.6* CHLOR 114* -- -- -- 110* -- 110* CO2 13* -- -- -- 14* -- 16* CREAT 4.79* -- -- -- 4.52* -- 4.29* P 6.7* -- -- -- -- -- -- BUN 69* -- -- -- 64* -- 62* GLUC 108* -- -- -- 84 -- 117* TPROT -- -- -- -- 7.0 -- 7.6 ALB -- -- -- -- -- -- 2.5* CA 8.0* -- -- -- 7.9* -- 8.2* ALKPHOS -- -- -- -- -- -- 205* TBILI -- -- -- -- -- -- 0.8 AST -- -- -- -- -- -- 42* ALT -- -- -- -- -- -- 30 CRP -- -- -- 1.6* -- -- -- APTT -- -- 38.7* -- -- -- -- INR -- -- 1.6* -- -- -- -- < > = values in this interval not displayed. Active Problems: IRINA (acute kidney injury) (HCC) Malnutrition of mild degree (HCC) Resolved Problems: * No resolved hospital problems. * CONSULT Observed: 12/26/2017 Status: COMPLETED Source: PLANO 9:34 AM [facility] REPOSITORY HNO ID: [id number] Author: Vanessa Thomas MD Service: Critical Care Author Type: Physician Type: Consults Filed: 12/26/2017 6:34 PM Note Text: CRITICAL CARE INITIAL CONSULT SERVICE DATE: 12/26/2017 SERVICE TIME: 9:36 AM REASON FOR CONSULT: IRINA, pulmonary edema with potential to decompensate REQUESTING PHYSICIAN: Dr. Diaz PRIMARY CARE PHYSICIAN: No primary care provider on file. Subjective Mr. Rivera is a 62M with PMHX of HTN, Atrial Fibrillation, CAD s/p CABG, Heyde's syndrome, Aortic Stenosis s/p bioprosthetic AVR (27mm [employer] Richi Trifecta pericardial valve) and RUDY ligation 05/07/17, Sick sinus syndrome s/p pacemaker placement 05/13/17, Hx of CVA with residual dysphagia 10/2017, hx of Min-En-Y with chronic iron deficiency, and hx of upper GI bleeds who was initially admitted for further workup of IRINA. He initially contacted PCP for fatigue and shortness of breath and underwent labwork. He was found to be anemic with IRINA and was admitted to OSH. At OSH underwent EGD, C-scope, tagged RBC scan which were unremarkable. With the worsening renal function and anemia, there was concerns for MM so pt had a BM biopsy. Also then underwent renal biopsy on 12/18 for unexplained IRINA. 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 Since being at [facility], patient has been evaluated by multiple services. He has persistent anemia and has been found to have a L rectus sheath hematoma and hemolytic anemia - requiring intermittent transfusions. Hematology has been following patient - suspect there is possibly an autoimmune process, but unclear at this time. General surgery has been following for the rectus sheath hematoma - recommending close monitoringIn regards to the IRINA, nephrology has been following. It is still unclear of the etiology at this time - pathology was showing mixed golmerular pathology with some features consistent with TMA. He has been hyperkalemic around 5.5, Cr around 4.5, and he is oliguric. Overnight last night, patient reportedly desaturated to 88% on room air. He was placed on 3L NC without any shortness of breath. CXR was suspicious for pulmonary edema. MICU was consulted for transfer of care as there was concern that the patient would potentially decompensate with ongoing anemia, hyperkalemia, worsening IRINA. No past medical history on file. No past surgical history on file. No family history on file. Social History Substance Use Topics - Smoking status: Not on file - Smokeless tobacco: Not on file - Alcohol use Not on file Prescriptions Prior to Admission: atorvastatin (LIPITOR) 80 mg tablet Take 80 mg by mouth once daily. Disp: Rfl: Unknown at Unknown time hydrALAZINE (APRESOLINE) 25 mg tablet Take 25 mg by mouth every 8 hours. Disp: Rfl: Unknown at Unknown time ascorbic acid-ascorbate sodium 500 mg chew Take 500 mg by mouth once daily. Disp: Rfl: Unknown at Unknown time levothyroxine (LEVOXYL) 200 mcg tablet Take 200 mcg by mouth daily before breakfast. Disp: Rfl: Unknown at Unknown time magnesium oxide 200 mg magnesium tab Take 2 tablets by mouth once daily. Disp: Rfl: Unknown at Unknown time metoprolol tartrate, short acting, (LOPRESSOR) 25 mg tablet Take 12.5 mg by mouth twice daily. Disp: Rfl: Unknown at Unknown time ferrous sulfate 325 mg (65 mg iron) tablet Take 325 mg by mouth daily with breakfast. Disp: Rfl: Unknown at Unknown time predniSONE (DELTASONE) 20 mg tablet Take 60 mg by mouth once daily. Disp: Rfl: 12/24/2017 at Unknown time pantoprazole DR (PROTONIX) 20 mg tablet Take 40 mg by mouth twice daily. Disp: Rfl: Unknown at Unknown time cyanocobalamin (VITAMIN B-12) 100 mcg tab Take 500 mcg by mouth once daily. Disp: Rfl: Unknown at Unknown time apixaban (ELIQUIS) 5 mg tab(s) Take 5 mg by mouth twice daily. Disp: Rfl: Unknown at Unknown time Current hospital medications: phytonadione 2.5 mg oral liquid (VITAMIN K) 2.5 mg ORAL ONCE polyethylene glycol 3350 17 g packet (MIRALAX, GLYCOLAX) 17 g ORAL DAILY sodium polystyrene sulfonate (with sorbitol) 30 g liquid (SPS) 30 g ORAL ONCE ciprofloxacin 400 mg in D5W 200 mL (CIPRO) 400 mg INTRAVENOUS q 24 HR metroNIDAZOLE 500 mg PREMIX piggyback (FLAGYL) 500 mg INTRAVENOUS q 8 H tamsulosin ER 0.4 mg cap(s) (FLOMAX) 0.4 mg ORAL DAILY morphine 2 mg injection 2 mg INTRAVENOUS q 4 H PRN acetaminophen 650 mg tab(s) (TYLENOL) 650 mg ORAL q 6 H PRN 0.9% NaCl 3-5 mL 3-5 mL INTRAVENOUS q [address] 40 mg tab(s) (PROTONIX) 40 mg ORAL BID levothyroxine 200 mcg tab(s) (SYNTHROID) 200 mcg ORAL BEFORE BREAKFAST DAILY atorvastatin 80 mg tab(s) (LIPITOR) 80 mg ORAL AT BEDTIME ALLERGIES Allergen Reactions - Penicillin Hives COMPLETE REVIEW OF SYSTEMS: PAIN ASSESSMENT: abdominal pain around 09/29 with known rectus sheath hematoma, improved from yesterday GENERAL: Fatigue HEENT: Negative for frequent or significant headaches, No changes in hearing or vision, no nose bleeds or other nasal problems RESPIRATORY: Negative for cough, hemoptysis, wheezing, COPD, dyspnea or shortness of breath CARDIOVASCULAR: Negative for chest pain, hypertension, CHF or palpitations GI: No nausea, vomiting, or diarrhea : Not reviewed, Decreased urine output MUSCULOSKELETAL: joint pain or swelling NEURO: No history of headaches, syncope, paralysis, seizures or tremors Objective PHYSICAL EXAM: GENERAL: Alert, no distress, cooperative SKIN: Skin color, texture, turgor normal. No rashes or lesions. EYES: PERRL, EOMI LUNGS: Lungs clear to auscultation, Good diaphragmatic excursion; could not appreciate any crackles bilaterally CARDIAC: Normal S1 and S2; no rubs, murmurs, or gallops ABDOMEN: notable rectus sheath hematoma on the L side. Positive bowel sounds. Nontender. EXTREMITIES: 2+ edema of bilateral lower extremities NEURO: Negative, Grossly normal cognition, motor function, and cranial nerves III-XII PULSES: 2+ radial, 2+ dorsalis pedis The remainder of the physical exam is noncontributory. Patient Vitals for the past 24 hrs: BP Temp Temp src Pulse Resp SpO2 Weight 12/26/17 0610 132/54 36.5 ?C (97.7 ?F) Oral 67 18 95 % 113 kg (249 lb 1.9 oz) 12/26/17 0240 132/63 36.3 ?C (97.3 ?F) Oral 80 18 93 % - 12/25/17 2241 147/75 37.2 ?C (98.9 ?F) Oral 67 18 98 % - 12/25/17 1800 138/76 36.4 ?C (97.6 ?F) Oral 61 18 95 % - Body mass index is 30.34 kg/m?. Diagnostic tests reviewed for today's visit: Most recent labs and imaging results. Impression/Recommendations Mr. Rivera is a 62M with PMHX of HTN, Atrial Fibrillation, CAD s/p CABG, Heyde's syndrome, Aortic Stenosis s/p bioprosthetic AVR (27mm St. Richi Trifecta pericardial valve) and RUDY ligation 05/07/17, Sick sinus syndrome s/p pacemaker placement 05/13/17, Hx of CVA with residual dysphagia 10/2017, hx of Min-En-Y with chronic iron deficiency, and hx of upper GI bleeds with IRINA and anemia of unclear etiology, possible autoimmune process, lymphoproliferative disorder; undergoing extensive workup. On arrival to patient's room, he was standing up and having a conversation with the nurse at bedside. He was not on any oxygen and did not appear in any distress after just having gone to the bathroom. I asked the patient to sit on the bed and checked his pulse ox. He was saturating 95% on room air. Hemodynamically stable. He denied any shortness of breath. Breath sounds were clear throughout lung lima. Notable firm mass on L side of abdomen. 2+ edema of lower extremities. He states that last night he was having significant pain in his abdomen when he desaturated last night. Though he has significant lab abnormalities and has the potential to decompensate, I think he is too clinically stable to come to the ICU at this time. If he does become clinically unstable or has care that requires ICU transfer (dialysis), we will certainly accept the patient. Plan: ? Remain on the floor for now - if clinical condition changes, please reconsult MICU ? Monitor vitals ? Recheck CBC following transfusion and trend ? Follow general surgery recs - serial abdominal exams, IR if concerns for active bleeding ? For hyperkalemia, concern for volume overload - trial lasix, kayexalate, medical management ? Monitor EKG ? Sodium-bicarb infusion following lasix ? Renal diet ? Cont IRINA workup per nephro ? Cont anemia workup per hematology SIGNATURE: Jazzy Mcclellan PA-C PATIENT NAME: Frank Rivera DATE: December 26, 2017 TIME: 9:36 AM PAGER/CONTACT #: [phone] Attending Note I have personally performed a face to face assessment of the patient and have reviewed the VAHID note. My hernandez findings include: Assessment/Plan are IMPRESSION: 62 yo M with above mentioned past medical history most notable for worsening acute kidney injury and anemia most likely due to rectus sheath hematoma and hemolysis. MICU consulted for potential of worsening clinical status. Hemodynamically stable. Scr rising and hyperkalemia is being managed medically. RECOMMENDATION: Patient seen at 12pm and at that time was hemodynamically stable and ordered for every 8 hours cbc and ultrasound of abdomen Renal failure was being managed by nephrology and plan was to administer lasix. Recommendation at this time was that patient had the potential of clinical deterioration however remains stable therefore there no need for MICU transfer. If the patient's Hg does not respond to transfusion and/or if patient requires dialysis then reconsult MICU for transfer to ICU. Subsequently around 4pm nephrology recommended dialysis. Therefore we will transfer to MICU Other additions or changes: As edited Signature: Vanessa Thomas MD Date: 12/26/2017 Time: 6:34 PM PROGRESS Observed: 12/26/2017 Status: COMPLETED Source: [place] 8:11 AM [facility] REPOSITORY O ID: [id number] Author: Ayleen Browne Service: Hospital Medicine Author Type: Physician Type: Progress Notes Filed: 12/26/2017 6:14 PM Note Text: Internal Medicine Progress Note Adrien Arriaga For questions regarding this patient for today, please page [phone]. SERVICE DATE: December 26, 2017 SERVICE TIME: 8:11 AM SUMMARY: Mr. Rivera is a 62yo male with pmhx of HTN, Atrial Fibrillation, CAD s/p CABG, Heyde's syndrome, Aortic Stenosis s/p bioprosthetic AVR (27mm St. 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 INTERVAL HPI - Desaturated to 88% at RA overnight for which patient attributed to abdominal pain, improved to 93% with 3 L NC O2; CXR showed bilateral pleural effusion and pulm edema - Left abdominal pain improved this morning, patient felt the size also decreasing, but Hb continues to down trending to 6.8, 1 u of PRBC ordered; Iron study pending - Slightly worsening pancytopenia, PLT 84 --> 71, WBC 2.8 --> 2.2 - CT abd/pel and LE US notable for lymphadenopathy, nephrology rec'd holding steroid for concern for possible lymphoproliferative disorder - Echo EF 66%, moderate LVH, 2+ MR, 2-3+ TR, 3+ AR, moderately severe pulmonary HTN, RVSP 70 - Other Labs notable for K 5.7, rising Cr 4.5 --> 4.8, bicarb 13; INR 1.6 given vitamin K 2.5 po PLAN FOR TODAY: - Lasix IV 80 mg, reassess in the afternoon to target net negative - Will give sodium bicarb if he has response to lasix - Appreciate nephrology's recs, will consent for dialysis if not response to lasix challenge - Kayexalate, dextrose/insulin for hyperkalemia, re-check K in the PM - Monitor CBC q8hrs - Follow iron studies - Touch base with hematology regarding enlarged lymph node workup - RUQ US to rule cholecystitis ASSESSMENT AND PLAN: # IRINA, Positive P-ANCA -Cr 0.99 in October increased to 4.2 on admission Ruled out MM, p-ANCA + UA + RBC Kidney bx unclear what pathology but concerning for GN Plan: - Appreciate nephrology's recs - Hold steroid given lymphadenopathy - Lasix challenge # Hyperkalemia Rising potassium in setting of IRINA Plan: - Kayexalate, dextrose/insulin for hyperkalemia, re-check K in the PM # Lymphadenopathy CT abd/pel and LE US notable for lymphadenopathy, nephrology rec'd holding steroid for concern for possible lymphoproliferative disorder Plan: - Appreciate hematology's recs # Anemia ADRIANNE + hemolysis ( Low hapto < 10, high LDH 408, petar positive) No GI bleed noted on EGD/Colonoscopy/Tagged RBC scan at OSH, EGD+C-scopy negative, tagged RBC scan and commbs negative at OSH; Plan: - Follow Iron studies - Consulted to hematology, rec'd iron IV - Transfuse hbg < 7 # Rectal sheath hematoma Abdominal pain - LLQ abdominal supra pubic area, found to have rectal sheath hematoma Plan: HANDH q8hrs Gen surg following, no indication for surgery Abdominal binder # Lower extremity edema # A Fib Apixaban hold given anemia # H/O Aortic stenosis - s/p bioprosthetic AVR in 04/2017 # H/O Recent CVA - residual deficit- > swallow difficulty with thin liquids.No difficulty with ambulation. # H/O Rou en Y gastric bypass ? PHYSICAL EXAM BP 132/54 Pulse 67 Temp (Src) 97.7 (Oral) Resp 18 Ht 6' 3.984 (1.93m) Wt 249 lb 1.9 oz (113.0kg) SpO2 95% BMI 30.34 kg/(m2). General: on 3 L NC, not in acute distress RESP; decreased breath sounds in bilateral lower lungs Cardiovascular: RRR, + systolic heart murmur ABD: mild tenderness on palpation of LLL, no tenderness on RUQ Extremities: 2+ bilateral pitting edema Neuro: AAO X 3 LABS: Recent Labs 12/24/17 1829 PCGLUCOSE 181* CBC: Recent Labs 12/26/17 0529 12/25/17 2329 12/25/17 1718 12/25/17 0649 12/24/17 1907 WBC 2.68* -- 3.86 4.05 3.12* HB 6.8* 7.2* 8.4* 8.6* 8.8* PLT 71* -- 84* 86* 84* MCV 100.4* -- 98.1 97.8 96.5 NEUTP 77.6 -- -- 71.1 72.7 ABSNEUT 2.06 -- -- 2.88 2.25 LYMPHP 19.4 -- -- 21.0 23.1 EODINP 0.0 -- -- 0.0 0.0 CHEM: Recent Labs 12/26/17 0529 12/25/17 2329 12/25/17 0649 12/24/17 1618 NA 138 -- 136 -- 137 K 5.7* 5.6* 5.4* < > 5.6* CA 8.0* -- 7.9* -- 8.2* P 6.7* -- -- -- -- ANION 11 -- 12 -- 11 CHLOR 114* -- 110* -- 110* CO2 13* -- 14* -- 16* GLUC 108* -- 84 -- 117* BUN 69* -- 64* -- 62* CREAT 4.79* -- 4.52* -- 4.29* < > = values in this interval not displayed. HEPATIC: Recent Labs 12/25/17 0649 12/24/17 1618 ALT -- 30 AST -- 42* TBILI -- 0.8 ALKPHOS -- 205* ALB -- 2.5* TPROT 7.0 7.6 URINALYSIS: Recent Labs 12/24/17 1720 SPGR 1.013 LEUKEST 2+* UWBC >25* URBC >25* UHB 3+* UPROT 100* UGLUC Negative UKET Negative COAG: Recent Labs 12/25/17 2154 APTT 38.7* INR 1.6* CARDIAC: Recent Labs 12/24/17 1907 PBNP 31,933* ALLERGY: Allergies As of Date: 12/24/2017 Allergen Noted Reaction PENICILLIN 12/24/2017 Hives Fully Assessed 12/24/2017 MEDICATIONS: Current hospital medications: phytonadione 2.5 mg oral liquid (VITAMIN K) 2.5 mg ORAL ONCE furosemide 80 mg injection (LASIX) 80 mg INTRAVENOUS ONCE ciprofloxacin 400 mg in D5W 200 mL (CIPRO) 400 mg INTRAVENOUS q 24 HR metroNIDAZOLE 500 mg PREMIX piggyback (FLAGYL) 500 mg INTRAVENOUS q 8 H tamsulosin ER 0.4 mg cap(s) (FLOMAX) 0.4 mg ORAL DAILY morphine 2 mg injection 2 mg INTRAVENOUS q 4 H PRN acetaminophen 650 mg tab(s) (TYLENOL) 650 mg ORAL q 6 H PRN 0.9% NaCl 3-5 mL 3-5 mL INTRAVENOUS q [address] 40 mg tab(s) (PROTONIX) 40 mg ORAL BID levothyroxine 200 mcg tab(s) (SYNTHROID) 200 mcg ORAL BEFORE BREAKFAST DAILY atorvastatin 80 mg tab(s) (LIPITOR) 80 mg ORAL AT BEDTIME SIGNATURE: Jose David Diaz MD Internal Medicine PGY-2 [id number] This note is not final until staffed by the attending physician and authenticated by responsible provider. [facility] STAFF PHYSICIAN NOTE OF PERSONAL INVOLVEMENT IN CARE I have reviewed the progress note obtained and documented by the resident and I personally participated in the hernandez components. I have discussed the case and management of the patient's care. The following comments revise or confirm relevant hernandez components of their note. Covering ADRIEN Arriaga for Dr Mcknight for the weekend IMPRESSION:This is a 62 year old male admitted transferred from OSH for management of IRINA and anemia. Neg colonoscopy and EGD and tagged RBC and had 6 units of blood at OSH. ?? Bone marrow biopsy (full results in patient record on nursing floor): Normocellular marrow with mild plasmacytosis. Iron-absent Peripheral blood-macrocytic anemia and thrombocytopenia. Flow cytometry study from [facility] shows no evidence for abnormal myeloid maturation or an increased blast population. There is no evidence for a lymphoproliferative disorder or plasma cell neoplasm. Cytogenetic studies are pending at this time. ? Kidney biopsy (full report in his patient record on nursing floor): -Glomeruli showing focal segmental mesangiolysis (3 of 28 glomeruli), vague nodularity (2 of 28 glomeruli) and a single cellular crescent (1 of 28 glomeruli). -Mild tubular injury. -Moderate interstitial fibrosis and tubular atrophy. -strong granular IgM and C3 staining on immunofluorescence, with weak granular staining for C1q and kappa and lambda light chains. -Electron microscopy with occasional, poorly definied electron- dense areas in mesangium. ? Patient Active Hospital Problem List: IRINA (acute kidney injury) (HCC) (12/24/2017) - no response to lasix (350cc) and d/w nephrology and [facility] MICU admit for initiation of dialysis - O2 weaned to RA Malnutrition of mild degree (HCC) (12/25/2017) - NPO pending speech therapy eval with MBS on Thursday as has h/o silent aspiration Hyperkalemia (12/26/2017) - given kayexalate and lasix and mild improvement Rectus sheath hematoma (12/26/2017) - Gen Surg consulted and if any further bleed will need IR to evaluate - patient reports improved pain and improved swelling - no improvement with fentanyl and responded to morphine - CBC q6hrs for next 24 hrs and monitor Anemia (12/26/2017) - combination of rectus sheath hematoma and underlying hemolysis? D/w heme and additional blood work ordered Thrombocytopenia (HCC) (12/26/2017) - pancytopenia and monitor Lymphadenopathy (12/26/2017) - Noted on non contrast CT. will ask Gen Surg re: excisional biopsy to help with diagnosis Atrial fibrillation (HCC) (12/26/2017) - held anticoag and d/w family re risk of CVA and risk of active ongoing bleed and drop in Hb CVA, old, dysphagia (12/26/2017) - residual silent aspiration for thin liq per patient CAD (coronary artery disease) (12/26/2017) - on statin and hold B magdy given hematoma HTN (hypertension) (12/26/2017) - held anti HTN given rectus sheath hematoma Heyd's syndrome (HCC) (12/26/2017) - s/p bioprosthetic aortic valve and latest echo showed 2- 3+ AR which per family is new from Echo oct 2017 POC d/w patient, his sister and nursing at bedside ?Signature: Ayleen Browne MD Pager: [phone] Date: December 26, 2017 Time: 6:04 PM CONSULT PROG Observed: 12/26/2017 Status: COMPLETED Source: [place] 7:53 AM [facility] REPOSITORY O ID: [id number] Author: Gopal Darling Service: Nephrology Author Type: Physician Type: Consult Progress Note Filed: 12/26/2017 8:17 AM Note Text: NEPHROLOGY PROGRESS NOTE INTERVAL HISTORY: NC placed o/n, for decreased O2 sat. Abd pain improved denies uremic symptoms. Meds reviewed in [facility] Vital Signs; BP 132/54 Pulse 67 Temp 36.5 ?C (97.7 ?F) (Oral) Resp 18 Ht 193 cm (6' 3.98) Wt 113 kg (249 lb 1.9 oz) SpO2 95% BMI 30.34 kg/m? Awake and responsive, Chest CTA, CV reg without rub, abd nt, hematoma marked, Ext + LE edema, Neuro without asterixis Intake/Output Summary (Last 24 hours) at 12/26/17 0753 Last data filed at 12/26/17 0600 Gross per 24 hour Intake 401.5 ml Output 375 ml Net 26.5 ml Labs: CBC: Recent Labs 12/26/17 0529 12/25/17232812/25/17 1718 12/25/17 0649 12/24/17 1907 12/24/17 1618 WBC 2.68* -- 3.86 4.05 3.12* 3.28* HB 6.8* 7.2* 8.4* 8.6* 8.8* 8.6* HCT 22.4* 23.2* 26.3* 26.9* 27.6* 27.2* PLT 71* -- 84* 86* 84* 90* MCV 100.4* -- 98.1 97.8 96.5 97.5 RDWCV 19.1* -- 19.8* 19.6* 19.7* 19.6* NEUTP 77.6 -- -- 71.1 72.7 75.0 LYMPHP 19.4 -- -- 21.0 23.1 22.0 MONOP 3.0 -- -- 7.9 4.2 3.0 EODINP 0.0 -- -- 0.0 0.0 0.0 COAG: Recent Labs 12/25/17 2154 APTT 38.7* INR 1.6* BNP: Recent Labs 12/26/1752812/25/17 23212/25/17 0649 12/24/17 2319 12/24/17 1618 GLUC 108* -- 84 -- 117* NA 138 -- 136 -- 137 K 5.7* 5.6* 5.4* 5.4* 5.6* CHLOR 114* -- 110* -- 110* CO2 13* -- 14* -- 16* ANION 11 -- 12 -- 11 BUN 69* -- 64* -- 62* CREAT 4.79* -- 4.52* -- 4.29* P 6.7* -- -- -- -- CHEM: Recent Labs 12/26/17 0529 12/25/17 0649 12/24/17 1618 ALB -- -- 2.5* TPROT -- 7.0 7.6 CA 8.0* 7.9* 8.2* HEPATIC: Recent Labs 12/24/17 1618 ALKPHOS 205* ALT 30 AST 42* TBILI 0.8 ASSESSMENT AND PLAN: 62y male with nml baseline cr october 0.9, now returns 12/14/17 with complaints of fatigue without rash, neuro, rheum, oral ulcers, found to be anemic, GI eval wihtout source, + hemolysis, multiple pRBC transfusions locally, IRINA with cr 4.1 on admission and essentially stable since then, renal Bx /28, without definitive diagnosis, by report. Also with Bone marrow bx. 1. IRINA- uncertain etiology, mixed glomerular pathology with some features consistent with TMA, but with C3 and IgM in mesangium, only one crescent inof 28. Reviewed report with pathology- trying to obtain path slides for formal review. C3 low, ANCA + mild increase in MPO, fatou-, petar +. Broad differential. Repeat blood cultures-pending, neg HIV/HepB/HepC. Echo without vegatation. CT abd with hematoma L rectus and ?2.6cm LN near celiac Please check cryoglobulins, DULCE, ds DNA. Would hold preednisone at this time. Increased PO4, please check urate add sevelamer 800mg PO QAC. Review of path slides pending. eGFR ~15ml/min, if unable to manage hyperkalemia with medical management progression of acidosis or unresponsiveness to furosemide may need to intitiate HD. 2. Hyperkalemia- please add furosemide 80mg IV X1 now and monitor I/Os, may repeat for volume management and kalieuresis, low k diet, if able to diureses with furosemide may add NaHCO3 IV 150mEq/L x1.5L to correct acidosis, may titrate rate to be slow enough to ensure that a net negative fluid balance is achieved with diuretics. Consent for dialysis obtained and placed in the chart 12/26/17 SIGNATURE: Gopal Darling MD PATIENT NAME: Frank Rivera DATE: December 26, 2017 TIME: 7:53 AM PAGER/CONTACT #: [phone] CBC AND DIFFERENTIAL Collected: 12/26/2017 Status: F Source: [place] 5:29 AM [facility] REPOSITORY TYPE CODE TESTS RESULT OUT OF REFERENCE UNITS RANGE LAB WBC 3.70-11.00 k/uL Low WBC 2.68 LAB RBC 4.20-6.00 m/uL Low RBC 2.23 LAB HGB 13.0-17.0 g/dL Low Hemoglobin 6.8 LAB HCT 39.0-51.0 % Low Hematocrit 22.4 LAB MCV 80.0-100.0 fL MCV High 100.4 LAB MCH 26.0-34.0 pG MCH 30.5 LAB MCHC 30.5-36.0 g/dL Low MCHC 30.4 LAB RDWCV 11.5-15.0 % RDW-CV High 19.1 LAB PLTCT 150-400 k/uL Low Platelet Count 71 Result Comment: No clot detected. LAB MPV 9.0-12.7 fL MPV 10.3 LAB ANEUT % Neut% 77.6 LAB AANEUT 1.45-7.50 k/uL Abs Neut 2.06 LAB ALYMP % Lymph% 19.4 LAB AALYMP 1.00-4.00 k/uL Abs Low Lymph 0.52 LAB AMONO % Pope% 3.0 LAB AAMONO <0.87 k/uL Abs Pope 0.08 LAB AEOS % Eosin% 0.0 LAB AAEOS <0.46 k/uL Abs Eosin <0.03 LAB ABASO % Baso% 0.0 LAB AABASO <0.11 k/uL Abs Baso <0.03 LAB AUNRBC 0 /100 WBC NRBCs 0.0 LAB ABNRBC <0.01 k/uL Absolute nRBC <0.01 LAB DTYP DTYPE Auto Diff Performed By: #### CBCDIF, BMP, PHOS #### [facility] [address] [place], [place] [address] BASIC METABOLIC PANL Collected: 12/26/2017 Status: F Source: [place] 5:29 AM [facility] TYPE CODE TESTS RESULT OUT OF REFERENCE UNITS RANGE LAB GLU 74-99 mg/dL High Glucose 108 Result Comment: The [place] Diabetes Association (ADA) provides guidance for cutoff values for fasting glucose and random glucose. The ADA defines fasting as no caloric intake for at least 8 hours. Fas ting plasma glucose results between 100 to 125 mg/dL indicate increased risk for diabetes (prediabetes). Fasting plasma glucose results greater than or equal to 126 mg/dL meet the criteria for diagnosis of diabetes. In the absence of unequivocal hyperglycemia, results should be confirmed by repeat testing. In a patient with classic symptoms of hyperglycemia or hyperglycemic crisis, random plasma glucose results greater than or equal to 200 mg/dL meet the criteria for diagnosis of diabetes. Reference: Standards of Medical Care in Diabetes 2016, [place] [employer] Association. Diabetes Care. 2016.39(Suppl 1). LAB BUN 9-24 mg/dL BUN High 69 LAB CRET 0.73-1.22 mg/dL Creatinine High 4.79 LAB NA 136-144 mmol/L Sodium 138 LAB K 3.7-5.1 mmol/L Potassium High 5.7 LAB CL 97-105 mmol/L Chloride High 114 LAB CO2 22-30 mmol/L Low CO2 13 LAB AGAP 9-18 mmol/L Anion Gap 11 LAB CA 8.5-10.2 mg/dL Low Calcium, Total 8.0 LAB GFRAA eGFR- Amer. 15 LAB GFRNAA . eGFR-All Other Races 12 Result Comment: eGFR (Estimated GFR) Units of measure: mL/min/1.73 meters squared eGFR is derived from the reexpressed MDRD Study equation using the following parameters: serum creatinine, age, gender and race. The creatinine assay has been calibrated to be traceable to IDMS. An eGFR <60 mL/min/1.73m2 for >3 months is consistent with chronic kidney disease. Refer to KDOQI guidelines for clinical interpretation. In patients with unstable renal function, e.g. those with acute kidney injury, the eGFR may not accurately reflect actual GFR. Performed By: #### CBCDIF, BMP, PHOS #### [facility] [employer] [facility] [address] [place], [place] [address] PHOSPHORUS Collected: 12/26/2017 Status: F Source: [place] 5:29 AM [facility] REPOSITORY TYPE CODE TESTS RESULT OUT OF REFERENCE UNITS RANGE LAB PHOS 2.7-4.8 mg/dL High Phosphorus 6.7 Performed By: #### CBCDIF, BMP, PHOS #### [facility] [employer] [address] [place], [place] [address] XR CHEST 1V FRONTAL Observed: 12/26/2017 Status: F Source: [facility] 3:53 AM [facility] REPOSITORY * * *Final Report* * * DATE OF EXAM: Dec 26 2017 3:53AM [facility] [id number] - XR CHEST 1V FRONTAL PORT / PROCEDURE REASON: Acute respiratory failure * * * * Physician Interpretation * * * * EXAMINATION: CHEST RADIOGRAPH (PORTABLE SINGLE VIEW AP) Exam Date/Time: 12/26/2017 3:53 AM Clinical History: Acute respiratory failure, Shortness of breath, MQ: [id number] Comparison: 1 day prior RESULT: See impression. IMPRESSION: Lines, tubes, and devices: Left transvenous dual-chamber pacemaker. Status post median sternotomy, and left 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 ligation clip placement. Multiple clips overlie the left thoracoabdominal region, not visualized previously. Mildly lordotic projection. Lungs and pleura: Mid to lower lung zone hazy and heterogeneous opacities, with some interstitial markings, and may relate to bilateral pleural effusions, associated atelectasis and possible pulmonary edema versus infection or aspiration. Cardiomediastinal silhouette: Stable prominent cardiomediastinal silhouette. Question mild prominence of the central pulmonary arteries. Other: . Loss Prevention Operations Manager: PSCB Transcribe Date/Time: Dec 26 2017 4:09P Dictated by : YULISSA FONTAINE MD This examination was interpreted and the report reviewed and electronically signed by: YULISSA FONTAINE MD on Dec 26 2017 4:10PM EST [id number] Observed: 12/26/2017 Status: COMPLETED Source: [place] 3:46 AM [facility] REPOSITORY HNO ID: [id number] Author: Yue Monson Service: Hospital Medicine Author Type: Physician Type: Progress Notes Filed: 12/26/2017 3:49 AM Note Text: Paged by RN and informed that patient's O2 saturation decreased to 88% on RA. Patient asymptomatic and was placed on 3L NC (O2 sats 93-94%). Patient seen at bedside sleeping comfortably. He denies any chest pain or dyspnea. 12/25 CXR reviewed and noted for suspected pulmonary edema; will repeat CXR. Plan discussed with patient and RN. Will continue to monitor on RNF for further management. Yue Monson MD Internal Medicine Pager [phone] December 26, 2017 Time: 3:48 AM PROTEIN/CREATININE RATIO Collected: Status: F Source: [place] 12/26/2017 2:24 AM [facility] REPOSITORY TYPE CODE TESTS RESULT OUT OF REFERENCE UNITS RANGE LAB UTPR 0-20 mg/dL High Protein Urine 121 Random LAB UCRR 20-300 mg/dL Creatinine,Ur 84.9 ine,Ran LAB PCRAT <0.2 High Protein/Creat 1.4 inine Ratio Performed By: #### LEONARD #### [facility] [address] [place] [id number] NURSING PROG Observed: 12/26/2017 Status: COMPLETED Source: [place] 2:07 AM [facility] REPOSITORY HNO ID: [id number] Author: Ninfa (Rn) DIEUDONNE Ruvalcaba Service: (none) Author Type: Registered Nurse Type: Nursing Progress Note Filed: 12/26/2017 6:55 AM Note Text: Nursing Progress Note Patient Name: Frank Rivera Patient Location: [place] [address] Daily Note: Notified kiesha arriaga [facility] forwarding to Dr. Monson of drop in hgb, 8.4 to 7.2 and K of 5.6. Spoke w/ Dr. Monson who stated will transfuse for hgb under 7 and it is okay for next draw to be at 0600. Also notified gen surg Dr. Vazquez. Dr. Vazquez assessed pt at bedside, marked hematoma site. Kayaxalate administered for hyperkalemia. Pt complaining of abdominal pain throughout the night but states it has not gotten any worse. Morphine administered w/ minimal relief. 0200- pt satting 87-88 on RA, pt does not report any SOB, RR 18, other vitals stable. Pt placed on 3 L NC, now satting 93%, notified Dr. Monson of change. CXR ordered and completed. 0500 am labs drawn and sent. Notified Dr. Monson of results, hgb 6.8. This note was completed by: Ninfa Ruvalcaba RN SURGICAL PATHOLOGY Observed: 12/26/2017 Status: F Source: [place] 12:00 AM [facility] REPOS[facility]ORY PROCEDURE REPORT Specimen originated from [facility] Specimen #: [id number] Submitting Physician: LUCIANO PALMER MD SPECIMEN SUBMITTED A: PERIPHERAL BLOOD PROCEDURE(S) FLOW CYTOMETRY Date Ordered: 12/28/2017 Date Reported: 12/28/2017 Procedure Results and Interpretation Specimen type: peripheral blood CBC (12/26/2017): WBC = 3.6 k/ul; Hgb = 7 g/dL; Plt = 73 k/ul Differential (%): Neut: 67; Eos: 0; Baso: 0; Pope: 8; Lymph: 25. Viability: 96% Morphology comments: Anisocytosis with thrombocytopenia. Lymphocytes are unremarkable. Results: Marker Normal Cell Result (Lymph) Type CD3 T-cell Normal pattern CD4 T-cell subset Normal pattern CD5 T-cell Normal pattern CD8 T-cell subset Normal pattern CD13 Myeloid Normal pattern CD19 B-cell Normal pattern CD34 Progenitor Normal pattern CD45 Ferrari-leukocyte Normal pattern CD16/56 NK-cell Normal pattern [place]/Lambda B-cell subset Polytypic Interpretation: Flow cytometric analysis of the bone marrow/peripheral blood/fluid reveals that 17% of total events have the CD45 and light scatter properties of lymphocytes. The lymphocytes are composed of T-cells (75%, CD4:CD8 ratio = 2.3), NK cells (3%), and polytypic B-cells (15%). Granulocytic elements are 64% of events. Blasts are not detected. Final Impression: There is no evidence of involvement by a lymphoproliferative disorder or abnormal blast population. Correlation with the clinical findings is suggested. Comment: This assay is not designed to detect minimal residual disease, plasma cell neoplasms, or myeloid antigen maturational patterns. This test was developed and its performance characteristics determined by [facility]'s Vasyl Sara [facility]ology [facility] [place] ([facility]). It has not been cleared or approved by the FDA. [facility] is regulated under CLIA as qualified to perform high-complexity testing. This test is used for clinical purposes. It should not be regarded as investigational or for research. Procedure Pathologist: Daniel Tipton M.D. Electronic Signature CLINICAL DATA None provided. GROSS DESCRIPTION RECEIVED TWO 2 ML EDTA TUBES OF PERIPHERAL BLOOD LABELED FRANK RIVERA. ENTIRELY SUBMITTED FOR FLOW CYTOMETRY. Date of Report: Date of Procedure: 12/26/2017 Date of Receipt: 12/28/2017 Submitted: LUCIANO PALMER MD Additional Physician(s): JANESSA BECKER M.D. ([id number]) Diagnostic interpretation performed at [facility], [address] [place] [address]. HEMATOCRIT Collected: 12/25/2017 Status: F Source: PLANO 11:29 PM [facility] REPOSITORY TYPE CODE TESTS RESULT OUT OF REFERENCE UNITS RANGE LAB HCT 39.0-51.0 % Low Hematocrit 23.2 Performed By: #### HCT, HGB, K1 #### [place] [address] HEMOGLOBIN Collected: 12/25/2017 Status: F Source: PLANO 11:29 PM [facility] REPOSITORY TYPE CODE TESTS RESULT OUT OF REFERENCE UNITS RANGE LAB HGB 13.0-17.0 g/dL Low Hemoglobin 7.2 Performed By: #### HCT, HGB, K1 #### [place] [address] POTASSIUM Collected: 12/25/2017 Status: F Source: PLANO 11:29 PM [facility] REPOSITORY TYPE CODE TESTS RESULT OUT OF REFERENCE UNITS RANGE LAB K 3.7-5.1 mmol/L High Potassium 5.6 Performed By: #### HCT, HGB, K1 #### [place] [address] PROTIME Collected: 12/25/2017 Status: F Source: PLANO 9:54 PM [facility] REPOSITORY TYPE CODE TESTS RESULT OUT OF RANGE REFERENCE UNITS LAB PSEC 9.7-13.0 sec High PT Sec 16.0 LAB INR 0.9-1.3 High PT INR 1.6 Result Comment: Vitamin K Antagonist (VKA) Therapeutic Range: INR 2 to 3 (Target INR of 2.5) Note: For patients treated with VKA drugs, such as warfarin, the [place] [employer] 2012 Guideline recommends a therapeutic INR range of 2 to 3 (target INR of 2.5). This recommendation includes high-risk patients with antiphospholipid syndrome with previous arterial or venous thromboembolism, current-generation mechanical or bioprosthetic aortic heart valve replacement. Note: Patients with mechanical aortic valve replacement and additional risk factors for thromboembolic events (atrial fibrillation, previous thromboembolism, LV dysfunction, hypercoagulable conditions) or an older generation mechanical AVR (i.e., ball in-Cage) or any mechanical MVR should have a INR therapeutic range of 2.5 to 3.5 (target INR of 3). Milo GH, et al. Chest 2012, 141:7S-47S Mateo RA, et al. [facility] 2017, 70: 252-289 Performed By: #### PT, PTT #### [facility] [address] [place] [address] APTT Collected: 12/25/2017 Status: F Source: PLANO 9:54 [facility] REPOSITORY TYPE CODE TESTS RESULT OUT OF RANGE REFERENCE UNITS LAB APTT 23.0-32.4 sec High APTT 38.7 Result Comment: Unfractionated Heparin Therapeutic Ranges: Standard Heparin Nomogram: 53 to 78 seconds (anti-Xa level of 0.3 to 0.7 U/ml) Low Dose/ACS Nomogram: 49 to 67 seconds (anti-Xa level of 0.2 to 0.5 U/ml) Stroke Treatment Nomogram: 49 to 67 seconds (anti-Xa level of 0.2 to 0.5 U/ml) Note: The APTT therapeutic range has been determined for the current lot of laboratory APTT reagent in use throughout the [facility]. Performed By: #### PT, PTT #### [facility] [employer] [place] [address] LACTATE Collected: 12/25/2017 Status: F Source: PLANO 9:54 [facility] REPOSITORY TYPE CODE TESTS RESULT OUT OF REFERENCE UNITS RANGE LAB LACT 0.5-2.2 mmol/L Lactate 0.5 Performed By: #### LACT #### [facility] [employer] [address] [place], [place] [address] CONSULT Observed: 12/25/2017 Status: COMPLETED Source: PLANO 6:49 PM [facility] REPOSITORY HNO ID: [id number] Author: Cari Vazquez MD Service: General Surgery Author Type: Resident Type: Consults Filed: 12/25/2017 7:05 PM Note Text: Attestation signed by Vasyl Lion at 12/26/2017 11:36 AM Addendum: I have reviewed the history and physical examination obtained and documented by the resident and I personally participated in the hernandez components. I have discussed the case and management of the patient's care. The following comments revise or confirm relevant hernandez components of the note. CC: Abdominal pain HPI: Patient was found to have a rectus sheath hematoma. Hemoglobin this morning is 6.8 from 7.2 yesterday at 11:30 PM. Patient is having some abdominal tenderness over the rectus sheath hematoma. Denies any lightheadedness or dizziness. Patient is obese and has a palpable hematoma in the left lower pannus area. Plan: - No urgent surgical intervention indicated at this time - Recommend continue holding of anticoagulation - Transfuse as needed - Please call with questions or if clinical picture changes SIGNATURE: Willie Lion MD B surgery Pager: [phone] SURGICAL SERVICES INITIAL CONSULT SERVICE DATE: 12/25/2017 SERVICE TIME: 6:49 PM REASON FOR CONSULT: rectus sheath hematoma REQUESTING PHYSICIAN: Dr. Mcknight PRIMARY CARE PHYSICIAN: No primary care provider on file. Subjective HISTORY OF PRESENT ILLNESS: Mr. Rivera is a 62 year old male w PMHX of a fib s/p PPM and DCCV on apixaban 5mg BID (last dose 1 week ago), Ao stenosis s/p bioprosthetic ACR and RUDY ligation, sick sinus syndrome, h/o CVA, retinal embolism, HTN, hypothyroidism, remote gastric bypass (1995), chronic iron deficiency anemia, UGIB (1997, 2014, 2015), who presented to OSH with worsening fatigue and SOB. Upon further workup he was noted to have Hgb ~7.5, have guaiac pos stool and IRINA with Cr 4.12/BUN 70. Underwent EGD, colonoscopy and tagged RBC which were negative for bleeding. Since kidney function did not improve, he underwent kidney biopsy which was consistent with C3 nephropathy. Patient was transferred to [facility] for further care. General surgery consulted for spontaneous rectus sheath hematoma noted earlier today. Patient states that he started having lower abdominal pain over his left abdomen around 3 AM, constant non radiating and later noticed a mass over LLQ. FUNCTIONAL STATUS: independent No past medical history on file. No past surgical history on file. No family history on file. Social History Substance Use Topics - Smoking status: Not on file - Smokeless tobacco: Not on file - Alcohol use Not on file Prescriptions Prior to Admission: atorvastatin (LIPITOR) 80 mg tablet Take 80 mg by mouth once daily. Disp: Rfl: Unknown at Unknown time hydrALAZINE (APRESOLINE) 25 mg tablet Take 25 mg by mouth every 8 hours. Disp: Rfl: Unknown at Unknown time ascorbic acid-ascorbate sodium 500 mg chew Take 500 mg by mouth once daily. Disp: Rfl: Unknown at Unknown time levothyroxine (LEVOXYL) 200 mcg tablet Take 200 mcg by mouth daily before breakfast. Disp: Rfl: Unknown at Unknown time magnesium oxide 200 mg magnesium tab Take 2 tablets by mouth once daily. Disp: Rfl: Unknown at Unknown time metoprolol tartrate, short acting, (LOPRESSOR) 25 mg tablet Take 12.5 mg by mouth twice daily. Disp: Rfl: Unknown at Unknown time ferrous sulfate 325 mg (65 mg iron) tablet Take 325 mg by mouth daily with breakfast. Disp: Rfl: Unknown at Unknown time predniSONE (DELTASONE) 20 mg tablet Take 60 mg by mouth once daily. Disp: Rfl: 12/24/2017 at Unknown time pantoprazole DR (PROTONIX) 20 mg tablet Take 40 mg by mouth twice daily. Disp: Rfl: Unknown at Unknown time cyanocobalamin (VITAMIN B-12) 100 mcg tab Take 500 mcg by mouth once daily. Disp: Rfl: Unknown at Unknown time apixaban (ELIQUIS) 5 mg tab(s) Take 5 mg by mouth twice daily. Disp: Rfl: Unknown at Unknown time Current hospital medications: ciprofloxacin 400 mg in D5W 200 mL (CIPRO) 400 mg INTRAVENOUS q 24 HR metroNIDAZOLE 500 mg PREMIX piggyback (FLAGYL) 500 mg INTRAVENOUS q 8 H tamsulosin ER 0.4 mg cap(s) (FLOMAX) 0.4 mg ORAL DAILY [START ON 12/26/2017] predniSONE (DELTASONE) tab(s) 60 mg 60 mg ORAL DAILY morphine 2 mg injection 2 mg INTRAVENOUS q 4 H PRN methylPREDNISolone sod succinate(PF) 60 mg injection (SOLU- Medrol) 60 mg INTRAVENOUS STAT acetaminophen 650 mg tab(s) (TYLENOL) 650 mg ORAL q 6 H PRN 0.9% NaCl 3-5 mL 3-5 mL INTRAVENOUS q [address] 40 mg tab(s) (PROTONIX) 40 mg ORAL BID levothyroxine 200 mcg tab(s) (SYNTHROID) 200 mcg ORAL BEFORE BREAKFAST DAILY atorvastatin 80 mg tab(s) (LIPITOR) 80 mg ORAL AT BEDTIME ALLERGIES Allergen Reactions - Penicillin Hives COMPLETE REVIEW OF SYSTEMS: PAIN ASSESSMENT: Negative for pain, history of chronic pain, or current treatment for a chronic pain condition. GENERAL: No weight loss, malaise or fevers HEENT: Negative for frequent or significant headaches, No changes in hearing or vision, no nose bleeds or other nasal problems NECK: Negative for lumps, goiter, pain and significant neck swelling RESPIRATORY: see HPI CARDIOVASCULAR: see HPI GI: No nausea, vomiting, or diarrhea : No history of dysuria, frequency or incontinence MUSCULOSKELETAL: Negative for joint pain or swelling, back pain or muscle pain SKIN: Negative for lesions, rash, and itching PSYCH: Negative for sleep disturbance, mood disorder and recent psychosocial stressors HEMATOLOGY/LYMPHOLOGY: see HPI ENDOCRINE: Negative for cold or heat intolerance, polyuria, polydipsia and goiter NEURO: No history of headaches, syncope, paralysis, seizures or tremors Objective PHYSICAL EXAM: BP 138/76 Pulse 61 Temp (Src) 97.6 (Oral) Resp 18 Ht 6' 3.984 (1.93m) Wt 255 lb 1.6 oz (115.7kg) SpO2 95% BMI 31.06 kg/(m2). Physical Exam Performed GENERAL: Alert, mild distress d/t pain, cooperative LUNGS: non labored breathing on RA CARDIAC: RRR ABDOMEN: soft, hematoma of ~ 8x5 cm noted in LLQ, tender to palpation, no skin changes. Not peritonitic, not distended EXTREMITIES: Extremities normal, no deformities, edema, clubbing or skin discoloration. Good capillary refill., No ulcers DATA: Diagnostic tests reviewed for today's visit: CBC, Coags, BMP, Mg, Phos Recent Labs 12/25/17171712/25/17 0649 12/24/17 2319 12/24/17 1907 12/24/17 1618 WBC 3.86 4.05 -- 3.12* 3.28* HB 8.4* 8.6* -- 8.8* 8.6* HCT 26.3* 26.9* -- 27.6* 27.2* PLT 84* 86* -- 84* 90* NA -- 136 -- -- 137 K -- 5.4* 5.4* -- 5.6* CHLOR -- 110* -- -- 110* CO2 -- 14* -- -- 16* BUN -- 64* -- -- 62* CREAT -- 4.52* -- -- 4.29* GLUC -- 84 -- -- 117* CA -- 7.9* -- -- 8.2* Liver Function, Amylase, AND Lipase Recent Labs 12/25/17171712/25/17 0649 12/24/17 1618 TPROT -- 7.0 7.6 ALB -- -- 2.5* ALT -- -- 30 AST -- -- 42* ALKPHOS -- -- 205* TBILI -- -- 0.8 LACT Unable to assay. Specimen improperly collected/handled. -- -- Impression/Recommendations 62 year old male w PMHX of a fib s/p PPM and DCCV on apixaban 5mg BID (last dose 1 week ago), Ao stenosis s/p bioprosthetic ACR and RUDY ligation, sick sinus syndrome, h/o CVA, retinal embolism, HTN, hypothyroidism, remote gastric bypass (1995), chronic iron deficiency anemia, UGIB (1997, 2014, 2015), who presented to OSH with worsening fatigue and SOB. Currently admitted with IRINA. General surgery consulted for spontaneous rectus sheath hematoma. Patient hemodynamically stable. Unable to assess any active extravasation on CT scan since it is a non contrast study. Hb has been stable -No indication for emergent surgical intervention -Check CBC Q6 h -Please check INR STAT -Serial abdominal exams -If there is any concern for active bleeding, consider getting IR involved for localization/embolization -Will continue to follow SIGNATURE: Cari Vazquez MD PATIENT NAME: Frank Rivera DATE: December 25, 2017 TIME: 6:49 PM PAGER/CONTACT #: [phone] Observed: 12/25/2017 Status: F Source: PLANO BLOOD CULTURE 6:12 PM [facility] REPOSITORY Culture Result - No growth 5 days Performed By: #### BLCUL #### [facility] [address] [place] [address] Observed: 12/25/2017 Status: F Source: PLANO BLOOD CULTURE 6:06 PM [facility] REPOSITORY Culture Result - No growth 5 days Performed By: #### BLCUL #### [facility] [address] [place] [address] PROGRESS Observed: 12/25/2017 Status: COMPLETED Source: PLANO 5:41 PM [facility] REPOSITORY HNO ID: [id number] Author: LIZZ Gordon (Ct) Service: Radiology Author Type: Clinical Spray Rig Operator Type: Progress Notes Filed: 12/25/2017 5:41 PM Note Text: Radiology Service Progress Note PATIENT NAME: Frank Rivera DATE OF SERVICE: December 25, 2017 TIME: 5:41 PM PATIENT IDENTITY VERIFICATION COMPLETED USING TWO (2) METHODS: Patient confirmed name verbally and ID band matches.. PATIENT GENDER DATA: Male PATIENT RELEVANT IMPLANT DATA REVIEWED: Yes RADIOLOGY DEPARTMENT: CT; Exam(s) Completed: Abdomen/Pelvis PERIPHERAL IV DATA: Not applicable SIGNED BY: LIZZ Gordon December 25, 2017 5:[address] ABD/PEL WO IVCON Observed: 12/25/2017 Status: F Source: PLANO 5:40 PM [facility] REPOSITORY * * *Final Report* * * DATE OF EXAM: Dec 25 2017 5:40PM [facility] 0531 - CT ABD/PEL WO IVCON / PROCEDURE REASON: Abd pain, gastroenteritis or colitis suspected * * * * Physician Interpretation * * * * EXAMINATION: CT ABDOMEN AND PELVIS WITHOUT IV CONTRAST CLINICAL HISTORY: Abdominal pain and gastroenteritis TECHNIQUE: Non-IV contrast imaging of the abdomen and pelvis was performed using standard technique, scanning from just above the dome of the diaphragm to the symphysis pubis. Unenhanced imaging is limited for the evaluation of some intra-abdominal and pelvic pathology. MQ: [id number]_3 Contrast: IV: None Oral: None CT Radiation dose: Integrated Dose-length product (DLP) for this visit = 1271 mGy*cm. CT Dose Reduction Employed: Automated exposure control (AEC) COMPARISON: None. RESULT: Abdomen / Pelvis: Liver: There is diffuse low-attenuation of the liver, suggestive of steatosis. Unenhanced liver is otherwise unremarkable. Biliary: Cholelithiasis. The gallbladder is distended without any pericholecystic inflammatory change. Spleen: No splenomegaly. Pancreas: Unremarkable. Adrenals: No mass. Kidneys: No calculus, hydronephrosis or finding to suggest a cyst or mass in the unenhanced kidney. GI Tract: Postoperative changes in the proximal stomach. No bowel dilatation or thickening. No morphologic changes of colitis on this unenhanced study. No pneumatosis Lymph Nodes: 2.6 cm mildly hypodense structure, just to the RIGHT of celiac artery (series 2 image 41). This is suspicious for an enlarged node, further assessment not possible without contrast. No other definite enlarged nodes. Mesentery/peritoneum: Small perihepatic ascites. Retroperitoneum: No mass. 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 It drains into the LEFT renal vein. The suprarenal IVC is in its expected location. Pelvis: Urinary bladder is decompressed by a Herring catheter. Trace pelvic ascites present. Bones/Soft Tissues: There is a moderate LEFT rectus sheath hematoma measuring 7.1 x 5.2 x 19 cm (series 3 image 26, series 2 image 109). There is mild generalized anasarca. Midline ventral hernia containing fat. No acute bone abnormality. Degenerative changes in the spine. Lower thorax: Only lung bases are visualized. Bilateral pleural effusion is present, RIGHT greater than LEFT. There is underlying airspace disease which may represent atelectasis or pneumonia. IMPRESSION: Moderate LEFT rectus sheath hematoma Diffuse hepatic steatosis. 2.6 cm low-attenuation structure abutting the celiac, possibly an enlarged lymph node. Further evaluation with contrast-enhanced study should be considered. Cholelithiasis without evidence of acute cholecystitis. Loss Prevention Operations Manager: PSCB Transcribe Date/Time: Dec 25 2017 5:54P Dictated by : CY DIAZ MD This examination was interpreted and the report reviewed and electronically signed by: CY DIAZ MD on Dec 25 2017 6:02PM EST [id number] [id number] Collected: 12/25/2017 Status: F Source: PLANO 5:18 PM [facility] REPOSITORY TYPE CODE TESTS RESULT OUT OF REFERENCE UNITS RANGE LAB LACT 0.5-2.2 mmol/L Unable Lactate to assay. Specimen improperly collected/handle d. Result Comment: Specimen collected in wrong container type. NO HERBERT TOP RECEIVED. NOTIFIED Sara PRINCE. [id number] Account Credited Performed By: #### LACT #### [facility] [address] [place], [place] [address] CBC Collected: 12/25/2017 Status: F Source: PLANO 5:18 PM [facility] REPOSITORY TYPE CODE TESTS RESULT OUT OF REFERENCE UNITS RANGE LAB WBC 3.70-11.00 k/uL WBC 3.86 LAB RBC 4.20-6.00 m/uL Low RBC 2.68 LAB HGB 13.0-17.0 g/dL Low Hemoglobin 8.4 LAB HCT 39.0-51.0 % Low Hematocrit 26.3 LAB MCV 80.0-100.0 fL MCV 98.1 LAB MCH 26.0-34.0 pG MCH 31.3 LAB MCHC 30.5-36.0 g/dL MCHC 31.9 LAB RDWCV 11.5-15.0 % RDW-CV High 19.8 LAB PLTCT 150-400 k/uL Low Platelet Count 84 Result Comment: No clot detected. LAB MPV 9.0-12.7 fL MPV 9.7 LAB ABSNUC <0.01 k/uL Absolute nRBC <0.01 Performed By: #### CBC, CRP, WSR, HREMOP, HIV12C #### [place] [id number] C-REACTIVE PROTEIN Collected: 12/25/2017 Status: F Source: PLANO 5:18 PM [facility] REPOSITORY TYPE CODE TESTS RESULT OUT OF REFERENCE UNITS RANGE LAB CRP <0.9 mg/dL High C-Reactive 1.6 Protein Performed By: #### CBC, CRP, WSR, HREMOP, HIV12C #### [facility] [address] [place] [address] SED RATE WESTERGREN Collected: 12/25/2017 Status: F Source: PLANO 5:18 PM [facility] REPOSITORY TYPE CODE TESTS RESULT OUT OF REFERENCE UNITS RANGE LAB WSR 0-15 mm/hr Sed Rate High [place] 33 Performed By: #### CBC, CRP, WSR, HREMOP, HIV12C #### [place] [address] HEPATITIS REMOTE PANEL Collected: 12/25/2017 Status: F Source: PLANO 5:18 [facility] REPOSITORY TYPE CODE TESTS RESULT OUT OF REFERENCE UNITS RANGE LAB AHBCOT Negative Hep B Core Ab,Total Negative LAB AHCV Negative Hepatitis C Ab Negative IA LAB HBSAGR Negative HBsAg Negative LAB AHBSAG Negative HepB Surface Ab,Qual Negative Result Comment: NEGATIVE Performed By: #### CBC, CRP, WSR, HREMOP, HIV12C #### [place] [address] HIV 12 COMBO (AG/AB) Collected: 12/25/2017 Status: F Source: PLANO 5:18 PM [facility] REPOSITORY TYPE CODE TESTS RESULT OUT OF REFERENCE UNITS RANGE LAB HVAGAB Non Reactive HIV Non Reactive 12 Ag/Ab Result Comment: (NOTE) HIV Information: [place] Rev. Code 3701.243(E): This information has been disclosed to you from confidential records protected from disclosure by state law. You shall make no further disclosure of this information without the specific, written, and informed release of the individual to whom it pertains, or as otherwise permitted by state law. A general authorization for the release of medical or other information is not sufficient for the purpose of the release of HIV test results or diagnoses. Performed By: #### CBC, CRP, WSR, HREMOP, HIV12C #### [facility] [address] [place] [address] THERAPY NT Observed: 12/25/2017 Status: COMPLETED Source: PLANO 5:01 PM [facility] REPOSITORY HNO ID: [id number] Author: Susanna Hamilton (Pt) Heavenly Service: Physical Therapy Author Type: Physical Therapist Type: Therapy (PT/OT/Speech/Resp) Filed: 12/25/2017 5:01 PM Note Text: PHYSICAL THERAPY MISSED VISIT SERVICE DATE: 12/25/2017 SERVICE TIME: 1607 to 1607 ROOM: [place] [address] ([facility] ([facility]/Ultrasound)) Attempted Evaluation. Patient not seen due to Another service at bedside. SIGNATURE: Susanna Burdick, PT PATIENT NAME: Frank Rivera DATE: December 25, 2017 TIME: 5:01 PM CONSULT Observed: 12/25/2017 Status: COMPLETED Source: PLANO 4:49 PM [facility] REPOSITORY HNO ID: [id number] Author: Adry Greer Service: Hematology Author Type: Physician Type: Consults Filed: 12/25/2017 5:37 PM Note Text: [facility] Inpatient Consult Note PATIENT NAME: Frank Rivera ATTENDING PHYSICIAN: Dr. 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 Rivera is a 62 year old man with history of afib s/p PPM and DCCV, on apixaban, HTN, hypothyroid, aortic stenosis s/p bioprosthetic ACR and RUDY ligation, sick sinus syndrome, h/o CVA, retinal embolism, h/o Min-en-Y bypass, chronic iron deficiency anemia, UGIB (1997, 2014, 2015) who presented to OSH with several weeks of worsening fatigue and shortness of breath. PCP ordered a CBC which was notable for Hgb ~7.5. He was admitted to OSH for further work up. On presentation he was noted to have guaiac pos stool and IRINA with Cr 4.12/BUN 70. He underwent GI work up with EGD, colonoscopy, and tagged RBC scan which were all negative. Renal function did not improve and he ultimately underwent a renal biopsy with prelim concerns for C3 nephropathy. A BMBX was also performed looking for plasma cell neoplasm given anemia and acute renal failure. Notable Labs at OSH on 12/23: CBC WBC 3.8, Hg 8.4, Plt 84 CMP Na 141, K 5.6, Chloride 119, CO2 17, BUN 60, Cr 3.71 Total protein 7 IgG 3273 H IgA 349 IgM 159 Albumin 2.4 Albmin/glboulin 0.6 Alpha 1 gloublins Lis 0.2 Alpha 2 globulins Lis 0.5 Beta glboluins Lis 0.87 Gamma globulins 4.6 (H) Complement C3 64 (L) Complement C4 17 Free [place] 402.7 (H) Free Lambda 378.8 (H) Free [place]/Lambda ratio 1.06 ? 12/24 labs: CBC shows WBC 3.2, Hg 7.8, Plt 80 CMP shows Na 141, K 5.3, CO2 17, Chlroide 118, BUN 61, Cr 4.07, Phosphorsu 5.5 Bone marrow biopsy (full results in patient record on nursing floor): Normocellular marrow with mild plasmacytosis. Iron-absent Peripheral blood-macrocytic anemia and thrombocytopenia. Flow cytometry study from [facility] shows no evidence for abnormal myeloid maturation or an increased blast population. There is no evidence for a lymphoproliferative disorder or plasma cell neoplasm. Cytogenetic studies are pending at this time. ? Kidney biopsy (full report in his patient record on nursing floor): -Glomeruli showing focal segmental mesangiolysis (3 of 28 glomeruli), vague nodularity (2 of 28 glomeruli) and a single cellular crescent (1 of 28 glomeruli). -Mild tubular injury. -Moderate interstitial fibrosis and tubular atrophy. -strong granular IgM and C3 staining on immunofluorescence, with weak granular staining for C1q and kappa and lambda light chains. -Electron microscopy with occasional, poorly definied electron- dense areas in mesangium. ? Patient reporting lower abd pain, more significant on Left lower quadrant which started today. Reports decreased urine output. Urine that he does make is tea colored, no cruz blood, non-foamy. He reports fluid retention and 10+lb weight gain since hospitalization. Denies recent tobacco or alcohol intake. 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 He has received 6U PRBC and 2U PLT transfusions at OSH prior to transfer. ROS: 01/03 reviewed and negative except as above PREVIOUS MEDICAL HISTORY Atrial fibrillation on apixaban 5mg BID on metoprolol 12.5mg BID HTN Hypothyroidism on levothyroxine 200mcg qdaily Atrial Fibrillation s/p PPM and DCCV in 04/2017 Aortic Stenosis s/p bioprosthetic AVR (27mm St. Richi Trifecta pericardial valve) and RUDY ligation 05/07/17 Sick sinus syndrome s/p pacemaker placement 05/13/17 Hx of CVA with residual dysphagia Chronic Iron Deficiency Anemia (also B12 deficient) Hx of Min-En-Y bypass in 1995 Hx of Upper GI bleeds (1997, 2014, 2015) PREVIOUS SURGICAL HISTORY S/p aortic valve replacement - 05/07/2017 Hx of carpel tunnel surgery Hx of gastric bypass 1995 Hx of knee surgery ALLERGIES ALLERGIES Allergen Reactions - Penicillin Hives MEDICATIONS Current Facility-Administered Medications: acetaminophen 650 mg tab(s) (TYLENOL) 650 mg ORAL q 6 H PRN ciprofloxacin 400 mg in D5W 200 mL (CIPRO) 400 mg INTRAVENOUS q 24 HR metroNIDAZOLE 500 mg PREMIX piggyback (FLAGYL) 500 mg INTRAVENOUS q 8 H tamsulosin ER 0.4 mg cap(s) (FLOMAX) 0.4 mg ORAL DAILY morphine 2 mg injection 2 mg INTRAVENOUS ONCE 0.9% NaCl 3-5 mL 3-5 mL INTRAVENOUS q [address] 40 mg tab(s) (PROTONIX) 40 mg ORAL BID levothyroxine 200 mcg tab(s) (SYNTHROID) 200 mcg ORAL BEFORE BREAKFAST DAILY atorvastatin 80 mg tab(s) (LIPITOR) 80 mg ORAL AT BEDTIME FAMILY HISTORY Mother: CAD, Thyroid disorder Father: CAD Sister: Thyroid Cancer SOCIAL HISTORY Smoking - 25y ppd Alcohol - Never 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 Intake/Output Summary (Last 24 hours) at 12/25/17 1705 Last data filed at 12/25/17 1405 Gross per 24 hour Intake 5 ml Output 0 ml Net 5 ml General: Elderly man, lying in bed. In mild acute distress from lower abd pain HEENT: PERRLA, EOMI, anicteric sclera, MMM Neck: Supple CVS: (+)S1, S2, RRR. No murmurs, rubs, gallops Resp: CTA b/l, no wheezes, rales, rhonchi Abd: Soft, +LLQ abd pain. Also suprapubic tenderness. normoactive bowel sounds MSK: +edema. Neuro: AAOx3, no acute focal deficits. Skin: Warm, dry, intact. No rashes. No abnormal bleeding/bruising. Lines without oozing. LABORATORY DATA Recent Labs 12/25/17 0649 12/24/17 1907 12/24/17 1618 WBC 4.05 3.12* 3.28* RBC 2.75* 2.86* 2.79* HB 8.6* 8.8* 8.6* HCT 26.9* 27.6* 27.2* PLT 86* 84* 90* MCV 97.8 96.5 97.5 MCH 31.3 30.8 30.8 MCHC 32.0 31.9 31.6 RDWCV 19.6* 19.7* 19.6* MPV 11.1 11.1 10.5 NEUTP 71.1 72.7 75.0 ABSNEUT 2.88 2.25 2.44 LYMPHP 21.0 23.1 22.0 MONOP 7.9 4.2 3.0 EODINP 0.0 0.0 0.0 BASOP 0.0 0.0 0.0 ABSMONO 0.32 0.13 0.10 ABSEOSIN <0.03 <0.03 <0.03 ABSBASO <0.03 <0.03 <0.03 Recent Labs 12/25/17 0649 12/24/17 2319 12/24/17 1618 NA 136 -- 137 K 5.4* 5.4* 5.6* CHLOR 110* -- 110* CO2 14* -- 16* CREAT 4.52* -- 4.29* BUN 64* -- 62* GLUC 84 -- 117* TPROT 7.0 -- 7.6 ALB -- -- 2.5* CA 7.9* -- 8.2* ALKPHOS -- -- 205* TBILI -- -- 0.8 AST -- -- 42* ALT -- -- 30 Component Latest Ref Rng AND Units 12/24/2017 c-ANCA Fluorescence Negative Negative p-ANCA Fluorescence Negative Positive (A) Proteinase-3 Antibody <1.0 AI <0.2 Myeloperoxidase Antibody (MPO) <1.0 AI 0.3 Interpretation (ANCA) Anti Myeloperoxidase enzyme immunoassay result within normal limits but P ANCA . . . Staff Review (ANCA) Reviewed by Levy Lipscomb MD ([id number]) DAGT, Polyspecific AHG POS (microscopic) Order Type Blood Bank Blood Bank DAGT, Anti-IgG POS (microscopic) DAGT, Anti-C3b,C3d POS (microscopic) [place] Free, Serum 3.30 - 19.40 mg/L 464.1 (H) Lambda Free, Serum 5.7 - 26.3 mg/L 343.0 (H) K/L Ratio, Serum 0.26 - 1.65 1.35 FATOU Negative Negative FATOU Titer Negative Negative FATOU Pattern Not applicable for negative result. Retic % 0.4 - 2.0 % 1.5 Abs Retic 0.0180 - 0.1000 M/uL 0.043 LD 135 - 225 U/L 408 (H) Haptoglobin 31 - 238 mg/dL <10 (L) NT Pro BNP <125 pg/mL 31,933 (H) Proteinase 3 Antibody <1.0 AI Account Credited C3 86 - 166 mg/dL 47 (L) C4 13 - 46 mg/dL 17 CANCA (PR3) Reflex Billed for services performed PANCA (MPO) Reflex Billed for services performed PATHOLOGY: IMAGING: ASSESSMENT AND PLAN: Mr. Rivera is a 62 year old man with history of afib s/p PPM and DCCV, on apixaban, HTN, hypothyroid, aortic stenosis s/p bioprosthetic ACR and RUDY ligation, sick sinus syndrome, h/o CVA, retinal embolism, h/o Min-en-Y bypass, chronic iron deficiency anemia, UGIB (1997, 2014, 2016) who presented to OSH with several weeks of worsening fatigue and shortness of breath. Found to have acute kidney injury and throbocytopenia and anemia refractory to blood transfusions. Hematology consulted for autoimmune hemolytic anemia. - Smear reviewed. Notable for few schistocytes, yojana cells, rare spherocytes. Decreased platelets without clumping. Normal leukocytes. Anemia: - Hapto <10, LDH 408, FELICIA weakly positive. 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 Will ask blood bank to look at eluate to determine if this is truly autoimmune process. Low suspicion. - There may be some contribution due to chronic iron deficiency. Would give IV ferrlicet 125 mg daily x 5 days. - Check CBC+diff daily. Repeat LDH in am. Patient seen and discussed with staff, Dr. Greer. Luciano Palmer MD Fellow, Hematology and Medical Oncology Pager: [phone] ATTENDING ATTESTATION: I have reviewed the data, obtained PMH, PFSH, and ROS, seen and examined the patient to confirm the findings and plan as outlined by Dr. Palmer except as specifically stated. 62 yo man with a fib, HTN, hypothyroid, s/p AVR. S/p gastric bypass many years ago and subsequent chronic Fe deficiency anemia. Found to be anemic after presentation with SOB. Also with new significant renal disease. Marrow biopsy report indicates increase in polyclonal plasma cells and low iron. No monoclonal proteins found in serum but IgG was high. Renal bx with C3 nephropthy. Here FELICIA positive for microscopic IgG and C3d. Ab screen negative; no eluate done as yet. Low hapto and elevated LDH Patient states urine is scant and dark, almost tea-colored Exam Not visibly jaundiced Clear lungs Soft abd with some tenderness and fullness in LUQ Impression: Anemia and thrombocytopenia - May be autoimmune but would like to see eluate of FELICIA first. Given his high IgG and immune complex deposition in his kidney this could simply be non-specific adsorption to his RBC membrane. ALso with such a low retic count, if he were having significant hemolysis, his HANDH would fall drastically. He has received several units of blood prior top transfer, so this is still possible. Will follow CBC for trends here. Need to get outside marrow for local investigation. It did not indicate marrow disease. The plasma cells may be responsible for his high IgG and the immune complex deposition in his kidneys. Marrow does show low iron. Would give IV iron to give him some substrate to work with. Epo level is also probably low (would check it) as a consequence of IRINA Plan: Labs as above and include epo level. Obtain outside marrow slides Will f/u with you. Adry Greer MD, FACP Staff Wind Development Director Pager [phone] Date of Service 12/25/2017 Time of Service 5:23 PM PROTEIN/CREATININE RATIO Collected: Status: F Source: PLANO 12/25/2017 4:04 PM [facility] REPOSITORY TYPE CODE TESTS RESULT OUT OF REFERENCE UNITS RANGE LAB UTPR 0-20 mg/dL High Protein Urine 109 Random LAB UCRR 20-300 mg/dL Creatinine,Ur 93.3 ine,Ran LAB PCRAT <0.2 High Protein/Creat 1.2 inine Ratio Performed By: #### PRATIO #### [facility] [address] [id number] Observed: 12/25/2017 Status: F Source: PLANO URINE CULTURE 4:04 PM [facility] REPOSITORY Sp. Request/Comment: - Best Practice Alert: To ensure optimal transport conditions and accurate culture results transfer urine specimens to herbert top C and S preservative tube. Culture Result - No growth (<1,000 CFU/ml) Performed By: #### URCUL #### [facility] [address] [id number] CONSULT Observed: 12/25/2017 Status: COMPLETED Source: PLANO 1:25 PM [facility] REPOSITORY HNO ID: [id number] Author: Gopal Darling Service: Nephrology Author Type: Physician Type: Consults Filed: 12/25/2017 6:22 PM Note Text: CONSULT: NEPHROLOGY SERVICE SERVICE DATE: 12/25/2017 SERVICE TIME: 1:25 PM REASON FOR CONSULT: I am asked to see this patient in consultation for my opinion regarding IRINA. My recommendations will be communicated by way of shared medical record. REQUESTING PHYSICIAN: Leonila Jacobs PRIMARY CARE PHYSICIAN: No primary care provider on file. Subjective CHIEF COMPLAINT: Further evaluation of IRINA HPI: Mr. Rivera is a 62 year old male with Afib on apixaban 5mg BID on metoprolol 12.5mg BID HTN Hypothyroidism on levothyroxine 200mcg qdaily Aortic Stenosis Sick sinus syndrome s/p pacemaker placement 05/13/17 Chronic Iron Deficiency Anemia (also B12 deficient) Presented to OSH on the 12/14 with complaints of fatigue and SOB and was found to have hgb 7.5, BUN 70 and Cr 4.12, stool guiac +. Underwent work up for Anemia and rise in Cr (last 0.99 in October). Required 4u RBC, 2u plt and 2 iron transfusion. 1. EGD and colonoscopy that where unremarkable. 2. Bone marrow biopsy : Normocellular marrow with mild plasmacytosis. Iron-absent Peripheral blood-macrocytic anemia and thrombocytopenia. Flow cytometry study from [facility] shows no evidence for abnormal myeloid maturation or an increased blast population. There is no evidence for a lymphoproliferative disorder or plasma cell neoplasm. Cytogenetic studies are pending at this time. 3. Kidney biopsy: -Glomeruli showing focal segmental mesangiolysis (3 of 28 glomeruli), vague nodularity (2 of 28 glomeruli) and a single cellular crescent (1 of 28 glomeruli). -Mild tubular injury. -Moderate interstitial fibrosis and tubular atrophy. -strong granular IgM and C3 staining on immunofluorescence, with weak granular staining for C1q and kappa and lambda light chains. -Electron microscopy with occasional, poorly definied electron- dense areas in mesangium. Notable Labs at OSH on 12/23: CBC WBC 3.8, Hg 8.4, Plt 84 CMP Na 141, K 5.6, Chloride 119, CO2 17, BUN 60, Cr 3.71 Total protein 7 IgG 3273 H IgA 349 IgM 159 Albumin 2.4 Albmin/glboulin 0.6 Alpha 1 gloublins Lis 0.2 Alpha 2 globulins Lis 0.5 Beta glboluins Lis 0.87 Gamma globulins 4.6 (H) Complement C3 64 (L) Complement C4 17 Free [place] 402.7 (H) Free Lambda 378.8 (H) Free [place]/Lambda ratio 1.06 2.3g protein in 24hrs ? 12/24 labs: CBC shows WBC 3.2, Hg 7.8, Plt 80 CMP shows Na 141, K 5.3, CO2 17, Chlroide 118, BUN 61, Cr 4.07, Phosphorsu 5.5 Past medical history Hx of multiple Upper GI bleeds (1997, 2014, 2016) Hx of CVA with residual dysphagia Past Surgical History S/p aortic valve replacement - 05/07/2017 Hx of carpel tunnel surgery Hx of gastric bypass 1996 Hx of knee surgery ? Past Family History Mother: CAD, Thyroid disorder Father: CAD Sister: Thyroid Cancer ? 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 Disp: Rfl: Unknown at Unknown time hydrALAZINE (APRESOLINE) 25 mg tablet Take 25 mg by mouth every 8 hours. Disp: Rfl: Unknown at Unknown time ascorbic acid-ascorbate sodium 500 mg chew Take 500 mg by mouth once daily. Disp: Rfl: Unknown at Unknown time levothyroxine (LEVOXYL) 200 mcg tablet Take 200 mcg by mouth daily before breakfast. Disp: Rfl: Unknown at Unknown time magnesium oxide 200 mg magnesium tab Take 2 tablets by mouth once daily. Disp: Rfl: Unknown at Unknown time metoprolol tartrate, short acting, (LOPRESSOR) 25 mg tablet Take 12.5 mg by mouth twice daily. Disp: Rfl: Unknown at Unknown time ferrous sulfate 325 mg (65 mg iron) tablet Take 325 mg by mouth daily with breakfast. Disp: Rfl: Unknown at Unknown time predniSONE (DELTASONE) 20 mg tablet Take 60 mg by mouth once daily. Disp: Rfl: 12/24/2017 at Unknown time pantoprazole DR (PROTONIX) 20 mg tablet Take 40 mg by mouth twice daily. Disp: Rfl: Unknown at Unknown time cyanocobalamin (VITAMIN B-12) 100 mcg tab Take 500 mcg by mouth once daily. Disp: Rfl: Unknown at Unknown time apixaban (ELIQUIS) 5 mg tab(s) Take 5 mg by mouth twice daily. Disp: Rfl: Unknown at Unknown time Current hospital medications: acetaminophen 650 mg tab(s) (TYLENOL) 650 mg ORAL q 6 H PRN ciprofloxacin 400 mg in D5W 200 mL (CIPRO) 400 mg INTRAVENOUS q 24 HR metroNIDAZOLE 500 mg PREMIX piggyback (FLAGYL) 500 mg INTRAVENOUS q 8 H 0.9% NaCl 3-5 mL 3-5 mL INTRAVENOUS q [address] 40 mg tab(s) (PROTONIX) 40 mg ORAL BID levothyroxine 200 mcg tab(s) (SYNTHROID) 200 mcg ORAL BEFORE BREAKFAST DAILY atorvastatin 80 mg tab(s) (LIPITOR) 80 mg ORAL AT BEDTIME ALLERGIES Allergen Reactions - Penicillin Hives REVIEW OF SYSTEMS: Constitutional: No complaints Eyes: No complaints Ear, Nose, and Throat: No complaints Cardiovascular: dyspnea on exertion Respiratory: No complaints Gastrointestinal: No diarrhea, No constipation, No nausea and No emesis, abdominal pain Genitourinary: red urine and dribbling/weak stream Musculoskeletal: No complaints Skin: No pruritis Neurological: No tremor and No headache Psychiatric: No complaints Endocrine: No complaints Hematologic:No complaints Objective PHYSICAL EXAM: BP 130/72 Pulse 60 Temp 36.2 ?C (97.2 ?F) (Oral) Resp 18 Ht 193 cm (6' 3.98) Wt 115.7 kg (255 lb 1.6 oz) SpO2 94% BMI 31.06 kg/m? Intake/Output Summary (Last 24 hours) at 12/25/17 1325 Last data filed at 12/25/17 1239 Gross per 24 hour Intake 5 ml Output 50 ml Net -45 ml Constitutional: No acute distress, Responsive, Normal habitus and Well-nourished Eyes: Conjunctiva clear and PERRL Ear, Nose, and Throat: Hearing normal, Lips normal and Dentition normal Cardiovascular:Edema present: pitting edema bilateral lower limbs Respiratory: Normal respiratory effort. Non labored breathing Abdomen: Soft, tenderness to palpation LLQ, non-distended. Normal bowel sounds. No hepatosplenomegaly. Musculoskeletal: No clubbing or cyanosis of digits., Normocephalic. and No muscle weakness, joint tenderness, or joint effusions. Neurologic: CN II-XII intact and Normal sensation Psychiatric: Alert and oriented x self, place, time, and setting Normal mood/affect DATA: Diagnostic tests reviewed for today's visit: Most recent labs and imaging results. Recent Labs 12/25/17 0649 12/24/17 2319 12/24/17 1618 NA 136 -- 137 K 5.4* 5.4* 5.6* CHLOR 110* -- 110* CO2 14* -- 16* BUN 64* -- 62* CREAT 4.52* -- 4.29* GLUC 84 -- 117* ANION 12 -- 11 CA 7.9* -- 8.2* Recent Labs 12/25/17 0649 12/24/17 1907 12/24/17 1618 WBC 4.05 3.12* 3.28* HB 8.6* 8.8* 8.6* HCT 26.9* 27.6* 27.2* PLT 86* 84* 90* Recent Labs 12/24/17 1720 COLOR Bridget* CLARITY Cloudy* UGLUC Negative UBILI Negative UKET Negative SPGR 1.013 UHB 3+* UPH 6.0 UPROT 100* NITRITES Negative LEUKEST 2+* UWBC >25* URBC >25* Recent Labs 12/25/17 0649 HB 8.6* Recent Labs 12/25/17 0649 12/24/17 1618 CA 7.9* 8.2* ALB -- 2.5* Recent Labs 12/24/17 1618 TBILI 0.8 ALT 30 AST 42* ALKPHOS 205* Assessment/Plan 62 year old male with pmhx of Afib, HTN, Hypothyroidism, repaired Aortic Stenosis, Sick sinus syndrome s/p pacemaker placement who was transferred from OSH for further work-up of findings of renal biopsy. 1. IRINA - Cr 4.52 (last 0.99 in October) Renal biopsy showed -Glomeruli showing focal segmental mesangiolysis (3 of 28 glomeruli), vague nodularity (2 of 28 glomeruli) and a single cellular crescent (1 of 28 glomeruli). -Mild tubular injury. -Moderate interstitial fibrosis and tubular atrophy. -strong granular IgM and C3 staining on immunofluorescence, with weak granular staining for C1q and kappa and lambda light chains. -Electron microscopy with occasional, poorly definied electron- dense areas in mesangium. 2. Metabolic Acidosis - bicarbonate 14 3. Normocytic Anemia Previous Iron deficient, B12 deficient - chronic malnourishment post Min-en-y 4. Thrombocytopenia PLAN: Keep patient on prednisolone We will review pathology Agree with low K diet Strict I/O SIGNATURE: Ирина Holliday Ms PATIENT NAME: Frank Rivera DATE: December 25, 2017 TIME: 1:25 PM --------- SENIOR RESIDENT ADDENDUM Please see excellent note above for further details. HPI: 62 yo M with PMH of Atrial fibrillation s/p PPM and DCCV in 04/2017 on Eliqus Aortic Stenosis s/p bioprosthetic AVR (27mm St. Richi Trifecta pericardial valve) and RUDY ligation 05/07/17 Sick sinus syndrome s/p pacemaker placement 05/13/17 Hx of CVA with residual dysphagia (10/2017) Chronic Iron Deficiency Anemia (also B12 deficient) Hx of Min-En-Y bypass in 1995 Hx of Upper GI bleeds (1997, 2014, 2015) Hypothyroidism Who was transferred from OSH on 12/24/17 for further evaluation of IRINA and anemia. Initially presented to [facility] on 12/14 after having outpatient workup for dyspnea and fatigue. Noted to have Hgb 7.5, BUN 70, Cr 4.12, stool guaic +. EGD, colonoscopy, and tagged RBC scan were unrevealing. Hgb 11, Cr 0.99 in October per pt. S/p 6U PRBC, 2U plt, 2 iron infusions. OSH labs/imaging (from records): 12/24 CBC WBC 3.2, Hg 7.8, Plt 80 12/24 CMP Na 141, K 5.3, Chloride 118, CO2 17, BUN 61, Cr 4.07 12/23 Cr 3.71 Retic count 1.25% Fibrinogen 215 (WNL) LDH 355 (H) Iron 62 (L) TIBC 159 (L) Ferritin 145 Alk phos 228 (H) TB 0.8 , direct bili 0.43 (H) ALT 41 (WNL) AST 57 (H) Albumin 1.9 (L) Total protein 7 IgG 3273 H IgA 349 IgM 159 Albumin 2.4 Albmin/glboulin 0.6 Alpha 1 gloublins Lis 0.2 Alpha 2 globulins Lis 0.5 Beta glboluins Lis 0.87 Gamma globulins 4.6 (H) Complement C3 64 (L) Complement C4 17 Free [place] 402.7 (H) Free Lambda 378.8 (H) Free [place]/Lambda ratio 1.06 Urine protein 24 h 2325 (H) Urine Cr 80.9 Nabeel 62 TSH 2.24 (WNL) FATOU negative cANCA negative pANCA negative Bcx negative Resp cx streptococcus C Legionella negative Streptococcus negative Renal US: normal kidneys CXR: bibasilar infiltrates R>L He underwent R renal bx on 12/18 which showed: -Glomeruli showing focal segmental mesangiolysis (3 of 28 glomeruli), vague nodularity (2 of 28 glomeruli) and a single cellular crescent (1 of 28 glomeruli). -Mild tubular injury. -Moderate interstitial fibrosis and tubular atrophy. -strong granular IgM and C3 staining on immunofluorescence, with weak granular staining for C1q and kappa and lambda light chains. -Electron microscopy with occasional, poorly definied electron- dense areas in mesangium. He underwent BM bx on 12/22 due to concern for MM (IRINA and anemia): Normocellular marrow with mild plasmacytosis. Iron-absent Peripheral blood-macrocytic anemia and thrombocytopenia. Flow cytometry study from [facility] shows no evidence for abnormal myeloid maturation or an increased blast population. There is no evidence for a lymphoproliferative disorder or plasma cell neoplasm. Cytogenetic studies are pending at this time. Nephrology and hematology were consulted at OSH. He was started on prednisone 60 daily on 12/23 (2 doses thus far). Herring was removed prior to transfer. Per records, pt was producing urine (amount unclear). Pt currently c/o significant left sided abdominal pain which started overnight. No BM or flatus since. MIld improvement with tylenol and ultram. Reports chronic issue with fully emptying bladder, urine has been dark for some time. Had petechiae after October hospitalization on legs which have since resolved, otherwise denies rash. Has had persistent sore throat since October as well which he attributed to his dysphagia. Denies active bleeding. No recent infections or sick contacts. Workup here: C4 17 (WNL) C3 47 (L) PANCA positive CANCA negative MPO 0.3 WNL Proteinase 3 <0.2 (WNL) FATOU pending BNP 38672 Petar positive Haptoglobin <10 (L) LDH 408 (H) Free [place] 464 (H) Free Lambda 343 (H) K/L ratio 1.35 UA +3Hgb, 100 protein, +2LE, >25 WBC Retic count, Iron studies, ferritin. HIV, hepatitis panel pending CXR patchy reticular opacities possibly pulm edema ECHO CONCLUSIONS: - Technically difficult exam due to suboptimal positioning. - Exam indication: Initial evaluation of Heart Failure - The left ventricle is moderately dilated. There is moderate concentric left ventricular hypertrophy. Left ventricular systolic function is normal. EF = 66 ? 5% (2D biplane) - The right ventricle is normal in size. Right ventricular systolic function is normal. - The left atrial cavity is severely dilated. - The right atrial cavity is dilated. - There is moderate (2+) mitral valve regurgitation. Thickened mitral valve leaflets. - There is moderate (2+ - 3+) tricuspid valve regurgitation. 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 There is moderately severe (3+) aortic valve regurgitation. The peak gradient is 39 mmHg, the mean gradient is 17 mmHg and the dimensionless valve index is 0.53. There is both valvular and paravalvular AI. There is flow reversal in the descending aorta. - Estimated right ventricular systolic pressure is?likely underestimated due to a weak or incomplete tricuspid regurgitation signal and is, at least, 70 mmHg consistent with moderately severe pulmonary hypertension. Estimated right atrial pressure is 15 mmHg. - The patient has not had a prior CC echocardiographic exam for comparison. Social history, family history, and ROS as above. PHYSICAL EXAMINATION: BP 130/72 Pulse 60 Temp 36.2 ?C (97.2 ?F) (Oral) Resp 18 Ht 193 cm (6' 3.98) Wt 115.7 kg (255 lb 1.6 oz) SpO2 94% BMI 31.06 kg/m? GEN: No acute distress. Cooperative. Alert and oriented x3. HEENT: NC/AT. No JVD. Moist mucous membranes RESP: CTAB, no rales/wheezes/rhonchi. Good respiratory effort. CV: RRR, S1, S2 normal, no murmurs/rubs/gallops. ABD: Soft. Nondistended, TTP left side with palpable, firm mass. Bowel sounds present. EXTR: Warm and perfused. Bilateral peripheral edema. Dorsalis pedis and radial pulses 2+ NEURO: CN II-XII grossly intact. No focal deficit. SKIN: Healing lacerations on right fingers. Labs and imaging as above. ASSESSMENT/PLAN: 62 yo M w PMH of Afib on Eliquis s/p PPM/DCCV, s/p AVR, h/o CVA, iron def anemia, h/o gastric bypass, h/o GI bleed, hypothyroidism transferred for further evaluation of IRINA and hemolytic anemia. 1. IRINA-Cr peaked to 4.5, previously normal in October. Producing urine but unclear if oliguric. +Proteinuria, 2.3 g. +Hematuria. Labs notable for low C3, weakly positive pANCA concerning for glomerular process. Nabeel at OSH 62 indicating kidneys are not hypoperfused. Renal bx at OSH with findings that could represent chronic processes. Was started on oral prednisone at OSH. Urine sediment with significant number of WBCs and RBCs (some dysmorphic) but no casts found. Hypervolemic on exam. 2. Anemia-labs suggest hemolysis. No improvement s/p PRBC transfusions. OSH BM bx unrevealing. H/o iron def and B12 anemia w h/o gastric bypass. Plan: -Continue prednisone 60 mg daily -Agree with additional studies (HIV, hepatitis panel, blood cx) to r/o infection -Agree with hematology consult -Awaiting review of pathology slides -Strict I/Os -Can consider diuresis to maintain net fluid balance if concerned for hypoperfusion please recheck Nabeel -Daily renal function panel -Renally dose medications -No urgent indication for HOSPICE ART THERAPIST at this time Note not finalized until signed by staff. Dilcia Horner MD, PhD Internal Medicine PGY-2 [id number] TEACHING PHYSICIAN NOTE OF PERSONAL INVOLVEMENT IN CARE I have reviewed the Consult Note obtained and documented by Dr Horner and I personally participated in the hernandez components. I have discussed the case and management of the patient's care and I agree with the formulated assessment and plan. In addition to above note: 62y male with nml baseline cr october 0.9, now returns 12/14/17 with complaints of fatigue without rash, neuro, rheum, oral ulcers, found to be anemic, GI eval wihtout source, + hemolysis, multiple pRBC transfusions locally, IRINA with cr 4.1 on admission and essentially stable since then, renal Bx /, without definitive diagnosis, by report. Also with Bone marrow bx. 1. IRINA- uncertain etiology, mixed glomerular pathology with some features consistent with TMA, but with C3 and IgM in mesangium, only one crescent inof 28. Reviewed report with pathology- trying to obtain path slides for formal review. C3 low, ANCA + mild increase in MPO, fatou-, petar +. Please r/o infection, repeat blood cultures, check HIV/HepB/HepC, please check cryoglobulins, DULCE, ds DNA. May continue prednisone 60mg PO daily unless infectious source identified, pending review of path slides. abd CT pending, Echo without vegatation. eGFR ~15ml/min, low k diet no acute indication for HOSPICE ART THERAPIST, will follow with you. SIGNATURE: Gopal Darling MD PATIENT NAME: Frank Rivera DATE: December 25, 2017 TIME: 6:15 PM PAGER/CONTACT #: [phone] PLAN OF CARE Observed: 12/25/2017 Status: COMPLETED Source: [place] 1:11 PM [facility] REPOSITORY HNO ID: [id number] Author: Leonila Jacobs Service: General Internal Medicine Author Type: Resident Type: Plan of Care Filed: 12/25/2017 1:16 PM Note Text: Plan of Care Note on Bone marrow and Kidney biopsy. Slides to be couriered over to our pathology department. Bone marrow biopsy (full results in patient record on nursing floor): Normocellular marrow with mild plasmacytosis. Iron-absent Peripheral blood-macrocytic anemia and thrombocytopenia. Flow cytometry study from [facility] shows no evidence for abnormal myeloid maturation or an increased blast population. There is no evidence for a lymphoproliferative disorder or plasma cell neoplasm. Cytogenetic studies are pending at this time. Kidney biopsy (full report in his patient record on nursing floor): -Glomeruli showing focal segmental mesangiolysis (3 of 28 glomeruli), vague nodularity (2 of 28 glomeruli) and a single cellular crescent (1 of 28 glomeruli). -Mild tubular injury. -Moderate interstitial fibrosis and tubular atrophy. -strong granular IgM and C3 staining on immunofluorescence, with weak granular staining for C1q and kappa and lambda light chains. -Electron microscopy with occasional, poorly definied electron- dense areas in mesangium. Leonila Jacobs MD 12/25/2017 1:16 PM PGY 2 GIM pgr [id number] NUTRITION Observed: 12/25/2017 Status: COMPLETED Source: [place] 11:22 AM [facility] REPOSITORY HNO ID: [id number] Author: Adis Westbrook Service: Nutrition Therapy Author Type: Registered Dietitian Type: Nutrition Filed: 12/25/2017 11:54 AM Note Text: NUTRITION THERAPY INITIAL ASSESSMENT SERVICE DATE: 12/25/2017 SERVICE TIME: 9:20am RECOMMENDED MALNUTRITION DIAGNOSIS: MILD PROTEIN-CALORIE MALNUTRITION In the context of Chronic Illness or Injury based on: Insufficient Energy Intake: Less than 75% energy intake compared to estimated needs for greater than or equal to 1 month NUTRITION CARE PLAN: Problem, Etiology and Signs/Symptoms: Suboptimal protein/energy intake related to poor appetite as evidenced by pt reports of eating <50% of meals and eating 100% of snacks Intervention: 1. Advance diet as medically able to 2gm K+ 2. Snacks listed between meals times 3. Encourage PO intake 4. Recommend the following vitamin and mineral regimen d/t pmh of gastric bypass: Coordination of Care: PCNAs- please record percentage of meal intakes and supplement intakes in I/Os for most accurate nutrient analysis - thank you Monitor and Evaluation: Goal: Meet >75% of estimated needs Monitor fluid/electrolyte balance Monitor labs, I/Os, vital signs, weight Discharge Nutrition Recommendations: To be determined Per HPI: Frank Rivera ( ) is a 62 year old male with pertinent PMH of Atrial fibrillation on apixaban 5mg BID on metoprolol 12.5mg BID HTN Hypothyroidism on levothyroxine 200mcg qdaily Atrial Fibrillation s/p PPM and DCCV in 04/2017 Aortic Stenosis s/p bioprosthetic AVR (27mm St. Richi Trifecta pericardial valve) and RUDY ligation 05/07/17 Sick sinus syndrome s/p pacemaker placement 05/13/17 Hx of CVA with residual dysphagia Chronic Iron Deficiency Anemia (also B12 deficient) Hx of Min-En-Y bypass in 1995 Hx of Upper GI bleeds (1997, 2014, 2015) Pt states that he was feeling lousy, fatigued, more short of breath thus he contacted his PCP who ordered lab work to be completed. He presented to OSH on 12/14 after being found to have hgb 7.5, BUN 70 and Cr 4.12, stool guiac +. Pt underwent work up for GI bleed via EGD on 12/18/17 and Colonoscopy 12/21/17 which was unremarkable. Tagged RBC scan also negative. Pt subsequently underwent right renal biopsy on 12/18 due to unexplained rise in Cr. Initial biopsy results concerning for C3 nephropathy, and thus pt was transferred to [facility] for further work up. Renal biopsy results pending at time of admission. Of note, in the context of anemia with worsening renal function, there were concerns for multiple myeloma thus pt underwent bone marrow biopsy (final biopsy results are pending) ? No past medical history on file. Current Diet Order DIET NPO Order Specific Question: NPO Restrictions Answer: EXCEPT MEDS Order Specific Question: NPO Restrictions Answer: EXCEPT SIPS OF WATER Lines and Drains: Peripheral 12/24/17 1649 Admission to Hospital Short Right Hand 20 Gauge (Active) Nutritional Intake Prior to Admission: Pt seen at bedside reporting of a so,so appetite. 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 Pt mentions he normally eats 6 small meals throughout the day. Pt explains that he eats 100% of the snacks he has and about 50% of any meals he consumes. Pt agreeable to snacks throughout the day. Denied any chewing or swallowing difficulties, along with any nausea or vomiting. Pt states he is able to feed himself independently. Pt did admit to sometimes having swallow difficulties with liquids- CONCRETE VIBRATOR OPERATOR consulted for possible silent aspiration. Will continue to monitor and encourage adequate energy intake and diet compliance. XR XHEST 12/25: IMPRESSION: Lines, tubes, and devices: ?The patient is status post median sternotomy and left 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 clip placement. ?Left pacemaker device is in place with leads in the right atrium and the right ventricle. ?Surgical clips overlie the upper abdomen. Lungs and pleura: ?Patchy reticular opacities are noted, likely related to pulmonary edema. Hazy opacity overlying the right lung base is likely related to small right pleural effusion and adjacent atelectasis/consolidation. ?Also noted is trace left pleural effusion. ?A vertically oriented lucency overlying the right lower chest is favored to be a skinfold. Cardiomediastinal silhouette: ?Cardiac silhouette is enlarged with pulmonary venous congestion. GI symptoms: swallowing problems and early satiety Nutrition Abdominal Exam: and not assessed ANTHROPOMETRICS Height: 193 cm (6' 3.98) Admission Weight: 115.7 kg (255 lb 1.6 oz) Current Weight: 115.7 kg (255 lb 1.6 oz) Body mass index is 31.06 kg/m?. class 1 obesity Pt states that his UBW is around 221lbs- pt believes his weight gain is fluid related Last Wt 12/24/17 : 115.7 kg (255 lb 1.6 oz) [place] Body Weight: 89 kg Dosing Weight: 116 kg Resting Metabolic Rate: 2067 Estimated kilocalorie needs: 1740- 2320 kilocalories determined by 15-20 kcal/kg Estimated protein needs: 98-116 grams determined by 1.1-1.3 g/kg Dosing weight Estimated fluid needs: 3716-5711 milliliters based on 1 mL per kcal NUTRITION FOCUSED PHYSICAL EXAM: Subcutaneous Fat Loss Orbital Mild Triceps Mild Mid-axillary at the iliac crest Unable to determine at this time Muscle Loss Locations: Temporalis Mild Pectoralis Mild Deltoids Mild Interosseous No muscle loss Latissimus dorsi, trapezius Unable to determine at this time Quadriceps Unable to determine at this time Gastrocnemius Unable to determine at this time Potential micronutrient deficiency revealed in: No deficiency identified Edema: Yes Lower extremities Moderate 2+ Ascites: No Assessment of Functional Status: Functional capacity is unrelated to nutrition status Temperature Max in 24 hours: Temp (24hrs), Av.5 ?C (97.7 ?F), Min:36.2 ?C (97.2 ?F), Max:37 ?C (98.6 ?F) BP 130/72 Pulse 60 Temp 36.2 ?C (97.2 ?F) (Oral) Resp 18 Ht 193 cm (6' 3.98) Wt 115.7 kg (255 lb 1.6 oz) SpO2 94% BMI 31.06 kg/m? Recent Labs 12/25/17 0649 12/24/17 1618 GLUC 84 -- 117* BUN 64* -- 62* CREAT 4.52* -- 4.29* NA 136 -- 137 K 5.4* < > 5.6* CHLOR 110* -- 110* CO2 14* -- 16* ALB -- -- 2.5* HB 8.6* < > 8.6* HCT 26.9* < > 27.2* WBC 4.05 < > 3.28* < > = values in this interval not displayed. Potential Signs of Inflammation: hypoalbuminemia ALLERGIES Allergen Reactions - Penicillin Hives Current Facility-Administered Medications: sulfamethoxazole-trimethoprim 400-80 mg 1 tablet (BACTRIM,SEPTRA) 1 tablet ORAL -WE-FR acetaminophen 650 mg tab(s) (TYLENOL) 650 mg ORAL q 6 H PRN 0.9% NaCl 3-5 mL 3-5 mL INTRAVENOUS q [address] 40 mg tab(s) (PROTONIX) 40 mg ORAL BID levothyroxine 200 mcg tab(s) (SYNTHROID) 200 mcg ORAL BEFORE BREAKFAST DAILY atorvastatin 80 mg tab(s) (LIPITOR) 80 mg ORAL AT BEDTIME Vitamin and Mineral Labs in the past year:No results for input(s): CHROMIUM, COPPER, MANGANESE, SELENIUM, VITAMINA, VITB1, VITB2, VITB6, B12, METHYLMAL, VITD25, VITAMINE, VITAK, ZINC, TIBC, FE, MAX in the last 8784 hours. MNT Billing Type: Initial Assess/15 min 4 units SIGNATURE: Adis Westbrook RD PATIENT NAME: Frank Rivera DATE: December 25, 2017 TIME: 11:22 AM PAGER: [phone] CASE MGT INIT Observed: 12/25/2017 Status: COMPLETED Source: [facility] 8:58 AM [facility] REPOSITORY O ID: [id number] Author: Lilian Childs (Rn) DIEUDONNE Jacob Service: Care Management Author Type: Registered Nurse Type: Care Mgt Initial Assessment Filed: 12/25/2017 10:34 AM Note Text: CARE MANAGEMENT: ASSESSMENT AND DISCHARGE PLAN SERVICE DATE: 12/25/2017 SERVICE TIME: 10:29 AM PRIMARY CARE PHYSICIAN: No primary care provider on file. 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 No Advance Directive: Current Advance Directive: None Business Process Coordinator Attempted to Assist with AD Completion: Yes Action: Education Provided Health Literacy: 1. How often do you need to have someone help you when you read instructions, pamphlets, or other written material from your doctor or pharmacy? Never - 1 2. How confident are you filling out medical forms by yourself? Extremely - 1 If Patient scores > 3 on either question, the following interventions were put into place: Patient did not score > 3 FUNCTIONAL AND COGNITIVE/BEHAVIORAL PRIOR TO ADMISSION: Baseline Mental Status: Alert AND Oriented, Person, Place , Time and Situation Functional Status: Independent Does Patient Currently Receive Any Community Services or Home Care? None Equipment Prior to Admission: None Has the Patient Been in a Alf Facility in the Past 30 days? 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 No Caregiver Needed Patient's transition needs and plan for meeting these needs: OP MD follow up Does the patient have an acute stroke diagnosis, or has the patient had a stroke during this admission? No Medication Adherence: I am convinced of the importance of my prescription medication: Agree completely - 0 I worry that my prescription medication will do more harm than good to me Disagree completely - 0 I feel financially burdened by my [id number] expenses for my prescription medication: Disagree completely - 0 Patient is categorized as low risk < 2 Are you interested in bedside delivery of your medications? No Food Concerns: In the Last Month, Have You had Trouble Getting Food? No trouble getting food During the Last Month, Have You Worried Whether Your Food Would Run Out Before You Had Enough Money to Buy More? No Is the Patient Psychosocially Complex? No ASSESSMENT AND PLAN: Medical Needs: 2 or more chronic diseases Psychosocial Needs: None FREEDOM OF CHOICE EXPLAINED: dispo TBD POTENTIAL TRANSITION PLANS To Be Determined Await PT recs. 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 62 year old male with pertinentf IRINA, concerns for multiple myeloma thus pt underwent bone marrow biopsy (final biopsy results are pending).CM to continue to follow SIGNATURE: Lilian Jacob RN PATIENT NAME: Frank Rivera DATE: December 25, 2017 TIME: 8:58 AM PAGER/CONTACT #: [phone] THERAPY NT Observed: 12/25/2017 Status: COMPLETED Source: [place] 8:53 AM [facility] REPOS[facility] HNO ID: [id number] Author: Kyra (Roller Picker) Chaparro Service: Speech/Swallow Author Type: Speech Language Pathologist Type: Therapy (PT/OT/Speech/Resp) Filed: 12/25/2017 8:55 AM Note Text: Speech Pathology [facility] December 25, 2017 Received consult for bedside swallow evaluation. Per discussion with RN, pt currently NPO for possible procedures today. Recommend completing an modified barium swallow study as a bedside swallow evaluation is unreliable due to pt's history of silent aspiration. Please order when appropriate. Suggest Thursday given NPO status today. Kyra Mayfield, CF-CONCRETE VIBRATOR OPERATOR Speech Language Pathologist, Clinical Fellow Pager # [phone] XR CHEST 1V FRONTAL Observed: 12/25/2017 Status: F Source: [facility] 8:10 AM [facility] REPOSITORY * * *Final Report* * * DATE OF EXAM: Dec 25 2017 8:10AM BRITTNEY [id number] - XR CHEST 1V FRONTAL PORT / PROCEDURE REASON: Acute respiratory illness * * * * Physician Interpretation * * * * EXAMINATION: CHEST RADIOGRAPH (PORTABLE SINGLE VIEW AP) Exam Date/Time: 12/25/2017 8:10 AM Clinical History: Acute respiratory illness, MQ: [id number] Comparison: None RESULT: See impression. IMPRESSION: Lines, tubes, and devices: The patient is status post median sternotomy and left 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 clip placement. Left pacemaker device is in place with leads in the right atrium and the right ventricle. Surgical clips overlie the upper abdomen. Lungs and pleura: Patchy reticular opacities are noted, likely related to pulmonary edema. Hazy opacity overlying the right lung base is likely related to small right pleural effusion and adjacent atelectasis/consolidation. Also noted is trace left pleural effusion. A vertically oriented lucency overlying the right lower chest is favored to be a skinfold. Cardiomediastinal silhouette: Cardiac silhouette is enlarged with pulmonary venous congestion. Other: . Loss Prevention Operations Manager: PSCB Transcribe Date/Time: Dec 25 2017 10:20A Dictated by : JANESSA HAMILTON MD This examination was interpreted and the report reviewed and electronically signed by: JANESSA HAMILTON MD on Dec 25 2017 10:30AM EST [id number] CBC AND DIFFERENTIAL Collected: 12/25/2017 Status: F Source: [place] 6:49 AM [facility] REPOSITORY TYPE CODE TESTS RESULT OUT OF REFERENCE UNITS RANGE LAB WBC 3.70-11.00 k/uL WBC 4.05 LAB RBC 4.20-6.00 m/uL Low RBC 2.75 LAB HGB 13.0-17.0 g/dL Low Hemoglobin 8.6 LAB HCT 39.0-51.0 % Low Hematocrit 26.9 LAB MCV 80.0-100.0 fL MCV 97.8 LAB MCH 26.0-34.0 pG MCH 31.3 LAB MCHC 30.5-36.0 g/dL MCHC 32.0 LAB RDWCV 11.5-15.0 % RDW-CV High 19.6 LAB PLTCT 150-400 k/uL Low Platelet Count 86 Result Comment: No clot detected. LAB MPV 9.0-12.7 fL MPV 11.1 LAB ANEUT % Neut% 71.1 LAB AANEUT 1.45-7.50 k/uL Abs Neut 2.88 LAB ALYMP % Lymph% 21.0 LAB AALYMP 1.00-4.00 k/uL Abs Low Lymph 0.85 LAB AMONO % Pope% 7.9 LAB AAMONO <0.87 k/uL Abs Pope 0.32 LAB AEOS % Eosin% 0.0 LAB AAEOS <0.46 k/uL Abs Eosin <0.03 LAB ABASO % Baso% 0.0 LAB AABASO <0.11 k/uL Abs Baso <0.03 LAB AUNRBC 0 /100 WBC NRBCs 0.0 LAB ABNRBC <0.01 k/uL Absolute nRBC <0.01 LAB DTYP DTYPE Auto Diff Performed By: #### CBCDIF, BMP, SEPG #### [facility] [address] [place], [place] [address] BASIC METABOLIC PANL Collected: 12/25/2017 Status: F Source: [place] 6:49 AM [facility] REPOSITORY TYPE CODE TESTS RESULT OUT OF REFERENCE UNITS RANGE LAB GLU 74-99 mg/dL Glucose 84 Result Comment: The [place] Diabetes Association (ADA) provides guidance for cutoff values for fasting glucose and random glucose. The ADA defines fasting as no caloric intake for at least 8 hours. Fas ting plasma glucose results between 100 to 125 mg/dL indicate increased risk for diabetes (prediabetes). Fasting plasma glucose results greater than or equal to 126 mg/dL meet the criteria for diagnosis of diabetes. In the absence of unequivocal hyperglycemia, results should be confirmed by repeat testing. In a patient with classic symptoms of hyperglycemia or hyperglycemic crisis, random plasma glucose results greater than or equal to 200 mg/dL meet the criteria for diagnosis of diabetes. Reference: Standards of Medical Care in Diabetes 2016, [place] Diabetes Association. Diabetes Care. 2016.39(Suppl 1). LAB BUN 9-24 mg/dL BUN High 64 LAB CRET 0.73-1.22 mg/dL Creatinine High 4.52 LAB NA 136-144 mmol/L Sodium 136 LAB K 3.7-5.1 mmol/L Potassium High 5.4 LAB CL 97-105 mmol/L Chloride High 110 LAB CO2 22-30 mmol/L Low CO2 14 LAB AGAP 9-18 mmol/L Anion Gap 12 LAB CA 8.5-10.2 mg/dL Low Calcium, Total 7.9 LAB GFRAA eGFR- Amer. 16 LAB GFRNAA . eGFR-All Other Races 13 Result Comment: eGFR (Estimated GFR) Units of measure: mL/min/1.73 meters squared eGFR is derived from the reexpressed MDRD Study equation using the following parameters: serum creatinine, age, gender and race. The creatinine assay has been calibrated to be traceable to IDMS. An eGFR <60 mL/min/1.73m2 for >3 months is consistent with chronic kidney disease. Refer to KDOQI guidelines for clinical interpretation. In patients with unstable renal function, e.g. those with acute kidney injury, the eGFR may not accurately reflect actual GFR. Performed By: #### CBCDIF, BMP, SEPG #### [facility] [address] [place], [place] [address] PROTEIN ELECTROPHOR. Collected: 12/25/2017 Status: F Source: [place] 6:49 AM [facility] REPOSITORY TYPE CODE TESTS RESULT OUT OF REFERENCE UNITS RANGE LAB TPSPE 6.0-8.4 g/dL Total Protein, SPE 7.0 LAB ALBE 3.37-4.23 gm/dL Albumin Low 2.43 LAB A1GL 0.18-0.31 gm/dL Alpha 1 Globulin 0.24 LAB A2GL 0.52-0.97 gm/dL Alpha 2 Globulin Low 0.48 LAB BEGL 0.84-1.36 gm/dL Beta Globulin Low 0.64 LAB GAGL 0.70-1.44 gm/dL Gamma Globulin High 3.21 LAB SPEINT Interpretation SEE COMMENT Result Comment: An M protein is identified on protein electrophoresis. Recommend monoclonal protein analysis to further characterize the M protein. M protein is present on the background of a polyclonal immunoglobulin population. Quantitation of the M protein may overestimate the amount of M protein present. LAB LOC M Protein Gamma Location fraction LAB GPERDL 0.00 gm/dL M Vivek 0.58 High Concentratn LAB SPESTF SPE Staff Review Reviewed by Lexa Mathias M.D., PhD ([id number]) Performed By: #### CBCDIF, BMP, SEPG #### [facility] [address] [place] [id number] CNCO Observed: 12/25/2017 Status: COMPLETED Source: [place] 12:00 AM [facility] REPOSITORY Letter Text [facility] AUTHORIZATION FOR THE RELEASE OF MEDICAL INFORMATION FROM OTHER HEALTHCARE FACILITIES Frank Rivera [phone] [place] [id number] (home) Date of : 1955 Social Security number: [id number] Reason for Disclosure: Medical care Dates of Treatment: last 5 years Release medical information to: [place] [address] Yes Emergency Department reports Yes Laboratory report(s) Yes Discharge Summary Yes Radiology Report (s) Yes History and Physical Yes EMG Report(s) Yes EKG(s) Yes Other: Yes Operative Reports Yes Physical/Occupational Therapy reports Yes Pathology Report(s) I hereby authorize [employer] and its employees to release any and all information contained in my patient records. I understand and acknowledge that this may include treatment for physical and mental illness, alcohol/drug abuse, and/or HIV/AIDS test results or diagnoses. This consent is subject to revocation at any time except to the extent the action has been taken thereon. This authorization and consent will in sixty (60) days from the date of authorization. I understand that there may be a charge related to the copying and distribution of my medical information, and accept financial responsibility. X / Signature of patient/Legal Guardian X Relationship, if not Patient If other than patient's signature, a copy of legal papers (example P.O.A.) MUST accompany the authorization when presented; the exception - if a parent of minors under 18 years of age. C3 COMPLEMENT Collected: 12/24/2017 Status: F Source: [place] 11:19 PM [facility] REPOSITORY TYPE CODE TESTS RESULT OUT OF REFERENCE UNITS RANGE LAB C3COMP 86-166 mg/dL Low C3 Complement 47 Performed By: #### C3COMP, C4COMP #### [place] [id number] [place] [address] C4 COMPLEMENT Collected: 12/24/2017 Status: F Source: [place] 11:19 PM [facility] REPOSITORY TYPE CODE TESTS RESULT OUT OF REFERENCE UNITS RANGE LAB C4COMP 13-46 mg/dL C4 Complement 17 Performed By: #### C3COMP, C4COMP #### [place] [id number] [place] [address] POTASSIUM Collected: 12/24/2017 Status: F Source: [place] 11:19 PM [facility] REPOSITORY TYPE CODE TESTS RESULT OUT OF REFERENCE UNITS RANGE LAB K 3.7-5.1 mmol/L High Potassium 5.4 Performed By: #### K1 #### [place] [id number] [place] [address] CONFIRM BLOOD TYPE Collected: 12/24/2017 Status: F Source: [place] 11:19 PM [facility] REPOSITORY TYPE CODE TESTS RESULT OUT OF REFERENCE UNITS RANGE LAB %ABR A ABO/RH(D) POSITIVE Performed By: #### CONABO #### [facility] [address] [place] [address] NT PRO BNP Collected: 12/24/2017 Status: F Source: [place] 7:07 PM [facility] REPOSITORY TYPE CODE TESTS RESULT OUT OF REFERENCE UNITS RANGE LAB PBNP <125 pg/mL High PRO B Natr [id number] Peptide Performed By: #### NTBNP, ANCA, CANBLL, PANBLL, ANCAC, ANAIFR, STREV #### [facility] [address] [place] [address] [email or web address] Collected: Status: F Source: [place] 12/24/2017 7:07 PM [facility] REPOSITORY TYPE CODE TESTS RESULT OUT OF REFERENCE UNITS RANGE LAB CANCAF Negative C-ANCA Negative Fluorescence LAB PANCAF Negative P-ANCA Positive Abnormal Fluorescence Alert LAB CANCA <1.0 AI Proteinase-3 <0.2 Ab LAB PANCA <1.0 AI 0.3 Myeloperoxidase Ab LAB ANCINT ANCA Anti Interpretation Myeloperoxidase enzyme immunoassay result within normal limits but P ANCA pattern identified by immunofluorescence . Interpretation: Positive for P ANCA. Result Comment: Comment: The clinical significance of this result is not as well established for P ANCA cases dually positive by both EIA and indirect immunofluorescence. LAB ANCSTF Staff Reviewed by Review Levy Lipscomb MD ([id number]) Performed By: #### NTBNP, ANCA, CANBLL, PANBLL, ANCAC, ANAIFR, STREV #### [facility] [employer] [address] [address] CANCA REFLEX Collected: 12/24/2017 Status: F Source: PLANO 7:07 PM [facility] REPOSITORY TYPE CODE TESTS RESULT OUT OF REFERENCE UNITS RANGE LAB CANBLL CANCA Billed for Reflex services performed Performed By: #### NTBNP, ANCA, CANBLL, PANBLL, ANCAC, ANAIFR, STREV #### [facility] [employer] [address] [address] PANCA REFLEX Collected: 12/24/2017 Status: F Source: PLANO 7:07 PM [facility] REPOSITORY TYPE CODE TESTS RESULT OUT OF REFERENCE UNITS RANGE LAB PANBLL PANCA Billed for Reflex services performed Performed By: #### NTBNP, ANCA, CANBLL, PANBLL, ANCAC, ANAIFR, STREV #### [facility] [employer] [address] [id number] PROTEINASE 3 AB Collected: 12/24/2017 Status: F Source: PLANO 7:07 PM [facility] REPOSITORY TYPE CODE TESTS RESULT OUT OF REFERENCE UNITS RANGE LAB CANCA1 <1.0 AI Proteinase 3 Ab Account Credited Result Comment: Duplicate request Performed By: #### NTBNP, ANCA, CANBLL, PANBLL, ANCAC, ANAIFR, STREV #### [place] [address] FATOU BY IFA W/REFLEX Collected: 12/24/2017 Status: F Source: PLANO 7:07 [facility] REPOSITORY TYPE CODE TESTS RESULT OUT OF REFERENCE UNITS RANGE LAB ANASC Negative FATOU Negative Result Comment: Normal range : negative at <1:80 serum dilution. Approximately 6% of patients with connective tissue diseases with low positive EIA values are negative by IFA. Recommend follow-up with specific antinuclear antibodies if clinically indicated. LAB GINA Negative Negative FATOU Titer Result Comment: Normal range : negative at <1:80 serum dilution. LAB ANAP FATOU Not applicable Pattern for negative result. Performed By: #### NTBNP, ANCA, CANBLL, PANBLL, ANCAC, ANAIFR, STREV #### [place] [id number] STAFF REV W CBCDIF Collected: 12/24/2017 Status: F Source: PLANO 7:07 [facility] REPOSITORY TYPE CODE TESTS RESULT OUT OF REFERENCE UNITS RANGE LAB WBC 3.70-11.00 k/uL Low WBC 3.12 LAB RBC 4.20-6.00 m/uL Low RBC 2.86 LAB HGB 13.0-17.0 g/dL Low Hemoglobin 8.8 LAB HCT 39.0-51.0 % Low Hematocrit 27.6 LAB MCV 80.0-100.0 fL MCV 96.5 LAB MCH 26.0-34.0 pG MCH 30.8 LAB MCHC 30.5-36.0 g/dL MCHC 31.9 LAB RDWCV 11.5-15.0 % RDW-CV High 19.7 LAB PLTCT 150-400 k/uL Low Platelet Count 84 Result Comment: No clot detected. LAB MPV 9.0-12.7 fL MPV 11.1 LAB ANEUT % Neut% 72.7 LAB AANEUT 1.45-7.50 k/uL Abs Neut 2.25 LAB ALYMP % Lymph% 23.1 LAB AALYMP 1.00-4.00 k/uL Abs Low Lymph 0.72 LAB AMONO % Pope% 4.2 LAB AAMONO <0.87 k/uL Abs Pope 0.13 LAB AEOS % Eosin% 0.0 LAB AAEOS <0.46 k/uL Abs Eosin <0.03 LAB ABASO % Baso% 0.0 LAB AABASO <0.11 k/uL Abs Baso <0.03 LAB AUNRBC 0 /100 WBC NRBCs 0.0 LAB ABNRBC <0.01 k/uL Absolute nRBC <0.01 LAB DTYP DTYPE Auto Diff LAB RBCMOR Red Cell Morph SEE COMMENT Result Comment: Anisocytosis Few Ovalocytes LAB DIFCOM Diff SEE Comments COMMENT Result Comment: Platelet estimate decreased See Staff Review LAB SREVW Staff SEE Review COMMENT Result Comment: Normocytic Anemia Without Polychromasia Leukopenia With Absolute Lymphopenia Thrombocytopenia LAB SRPATH Pathologist Reviewed by Shravan Vincent [place] ([id number]) Performed By: #### NTBNP, ANCA, CANBLL, PANBLL, ANCAC, ANAIFR, STREV #### [facility] [employer] [address] [address] HAPTOGLOBIN Collected: 12/24/2017 Status: F Source: PLANO 7:05 PM [facility] REPOSITORY TYPE CODE TESTS RESULT OUT OF REFERENCE UNITS RANGE LAB HAPTO 31-238 mg/dL Low Haptoglobin <10 Performed By: #### HAPTO, LD6, KLFRS #### [facility] [employer] [address] [place], [place] [address] LD Collected: 12/24/2017 Status: F Source: [facility] 7:05 PM [facility] REPOSITORY TYPE CODE TESTS RESULT OUT OF RANGE REFERENCE UNITS LAB LD 135-225 U/L High LD 408 Performed By: #### HAPTO, LD6, KLFRS #### [facility] [employer] [address] [id number] KAPPA/BUSTILLOS,FREE,SER Collected: Status: F Source: PLANO 12/24/2017 7:05 PM [facility] REPOSITORY TYPE CODE TESTS RESULT OUT OF REFERENCE UNITS RANGE LAB FKAPS 3.30-19.40 mg/L High [place], 464.1 Free, Serum Result Comment: Rarely, increased serum free light chains values may not be detected due to antigen excess phenomenon. Results should always be correlated with other laboratory results and clinical findings. LAB FLAMS 5.7-26.3 mg/L High L[place], Free, 343.0 Serum Result Comment: Rarely, increased serum free light chains values may not be detected due to antigen excess phenomenon. Results should always be correlated with other laboratory results and clinical findings. LAB KLRAT 0.26-1.65 K/L Ratio, 1.35 Serum Performed By: #### HAPTO, LD6, KLFRS #### [facility] [employer] [address] [place], [place] [id number] TYPE AND SCREEN Collected: 12/24/2017 Status: F Source: PLANO 7:03 PM [facility] REPOSITORY TYPE CODE TESTS RESULT OUT OF REFERENCE UNITS RANGE LAB %ABR A ABO/RH(D) POSITIVE LAB % Antibody NEG Screen Performed By: #### TSCR #### [facility] [employer] [address] [place], [place] [id number] PROTEIN ELEC,UR RAND Collected: 12/24/2017 Status: F Source: PLANO 6:55 PM [facility] REPOSITORY TYPE CODE TESTS RESULT OUT OF REFERENCE UNITS RANGE LAB UTPR 0-20 mg/dL Protein Urine High Random 124 LAB UALB % Albumin 32.2 LAB UA1G >0 % Alpha 1 Globulin 2.5 LAB UA2G % Alpha 2 Globulin 6.2 LAB UBEG % Beta Globulin 12.2 LAB UGAG % Gamma Globulin 46.9 LAB UPEINT Interpretation SEE COMMENT Result Comment: No definitive M protein is identified on protein electrophoresis. The absence of M protein on urine protein electrophoresis does not entirely exclude the presence of monoclonal gammopathy in urine. Monoclonal protein analysis (immunofixation), a more definitive test t o exclude monoclonal gammopathy, may be requested on this specimen if clinically indicated. LAB UPESTF Staff Reviewed by Review Rohit Barahona M.D. ([id number]) Performed By: #### UEPG #### [facility] [address] [place], [place] [id number] ECG COMPLETE W Observed: 12/24/2017 Status: F Source: PLANO INTERPRETATION 6:12 PM [facility] REPOSITORY NAME : FRANK RIVERA PID : [id number] : 1955 Gender : Male Race : ORD : [id number] Procedure Date : Dec 24 2017 18:12:58 Edit Date : Dec 25 2017 09:39:46 Diagnosis:AV DUAL-PACED COMPLEXES ABNORMAL ECG Confirmed by BING WAHL M.D. ([id number]) on 12/25/2017 9:39:40 AM Ventricular Rate : 86 BPM Atrial Rate : 241 BPM QRS Duration : 24 ms Q-T Interval : 210 ms QTC Calculation(Bezet) : 251 ms R Killbuck : 0 degrees T Killbuck : 258 degrees Test Reason : C3 NEPHROPATHY Location : 83 : [facility] Overread By : BING WAHL M.D. Edited By : BING WAHL M.D. Referred By : , Acquired by : KIDNEY,PETR URINALYSIS WITH Collected: 12/24/2017 Status: F Source: [place] MICROSCOPIC 5:20 PM [facility] REPOSITORY TYPE CODE TESTS RESULT OUT OF RANGE REFERENCE UNITS LAB UCOL Yellow Color Abnormal Bridget Alert LAB [facility] Clear Clarity Abnormal Cloudy Alert LAB UGLUC Negative mg/dL Glucose, Urine Negative LAB UBIL Negative Bilirubin, Urine Negative LAB UKET Negative Ketones, Urine Negative LAB USPG 1.005-1.030 Specific [place], Ur 1.013 LAB UHGB Negative Abnormal Hemoglobin/Blood, 3+ Alert Ur LAB UPH 4.5-8.0 pH 6.0 LAB UPROT Negative mg/dL Protein, Abnormal Urine 100 Alert LAB UUROB Normal Urobilinogen Normal LAB UNITR Negative Nitrites Negative LAB ULKEST Negative Leukest Abnormal 2+ Alert LAB UCOM Comments SEE COMMENT Result Comment: N/A LAB UMCOM Urine SEE Pawan Comment COMMENT Result Comment: N/A LAB UWBC 0-5 /HPF Abnormal Alert WBC >25 LAB URBC 0-3 /HPF Abnormal Alert RBC >25 Performed By: #### UAWMIC #### [facility] [address] [place], [place] [address] RETICULOCYTE Collected: 12/24/2017 Status: F Source: PLANO 4:32 PM [facility] REPOSITORY TYPE CODE TESTS RESULT OUT OF REFERENCE UNITS RANGE LAB RETC 0.4-2.0 % Retic% 1.5 LAB ABRET 0.0180-0.1000 M/uL Abs Retic 0.043 Performed By: #### RETIC, FERR, IRON #### [address] [place] [address] FERRITIN Collected: 12/24/2017 Status: F Source: PLANO 4:32 PM [facility] REPOSITORY TYPE CODE TESTS RESULT OUT OF REFERENCE UNITS RANGE LAB FERR 30.3-565.7 ng/mL Ferritin 422.0 Performed By: #### RETIC, FERR, IRON #### [address] [place] [address] IRON AND TIBC Collected: 12/24/2017 Status: F Source: PLANO 4:32 PM [facility] REPOSITORY TYPE CODE TESTS RESULT OUT OF REFERENCE UNITS RANGE LAB IRN 41-186 ug/dL Iron 140 LAB TIBC 232-386 ug/dL Low TIBC <157 LAB SAT 15-57 % Transferrin High Saturatn >89 Performed By: #### RETIC, FERR, IRON #### [address] [place] [address] COMP METABOLIC PANEL Collected: 12/24/2017 Status: F Source: PLANO 4:18 PM [facility] REPOSITORY TYPE CODE TESTS RESULT OUT OF REFERENCE UNITS RANGE LAB TP 6.3-8.0 g/dL Protein, Total 7.6 LAB ALB 3.9-4.9 g/dL Low Albumin 2.5 LAB CA 8.5-10.2 mg/dL Low Calcium, Total 8.2 LAB TBIL 0.2-1.3 mg/dL Bilirubin, Total 0.8 LAB ALKP 38-113 U/L Alkaline High Phosphatase 205 LAB AST 14-40 U/L AST High 42 LAB GLU 74-99 mg/dL Glucose High 117 Result Comment: The [place] [employer] (ADA) provides guidance for cutoff values for fasting glucose and random glucose. The ADA defines fasting as no caloric intake for at least 8 hours. Fas ting plasma glucose results between 100 to 125 mg/dL indicate increased risk for diabetes (prediabetes). Fasting plasma glucose results greater than or equal to 126 mg/dL meet the criteria for diagnosis of diabetes. In the absence of unequivocal hyperglycemia, results should be confirmed by repeat testing. In a patient with classic symptoms of hyperglycemia or hyperglycemic crisis, random plasma glucose results greater than or equal to 200 mg/dL meet the criteria for diagnosis of diabetes. Reference: Standards of Medical Care in Diabetes 2016, [place] Diabetes Association. Diabetes Care. 2016.39(Suppl 1). LAB BUN 9-24 mg/dL BUN High 62 LAB CRET 0.73-1.22 mg/dL Creatinine High 4.29 LAB NA 136-144 mmol/L Sodium 137 LAB K 3.7-5.1 mmol/L Potassium High 5.6 LAB CL 97-105 mmol/L Chloride High 110 LAB CO2 22-30 mmol/L Low CO2 16 LAB AGAP 9-18 mmol/L Anion Gap 11 LAB ALT 10-54 U/L ALT 30 LAB GFRAA eGFR- Amer. 17 LAB GFRNAA . eGFR-All Other Races 14 Result Comment: eGFR (Estimated GFR) Units of measure: mL/min/1.73 meters squared eGFR is derived from the reexpressed MDRD Study equation using the following parameters: serum creatinine, age, gender and race. The creatinine assay has been calibrated to be traceable to IDMS. An eGFR <60 mL/min/1.73m2 for >3 months is consistent with chronic kidney disease. Refer to KDOQI guidelines for clinical interpretation. In patients with unstable renal function, e.g. those with acute kidney injury, the eGFR may not accurately reflect actual GFR. Performed By: #### CMP, CBCDIF #### [facility] [address] [place], [place] [address] CBC AND DIFFERENTIAL Collected: 12/24/2017 Status: F Source: PLANO 4:18 PM [facility] REPOSITORY TYPE CODE TESTS RESULT OUT OF REFERENCE UNITS RANGE LAB WBC 3.70-11.00 k/uL Low WBC 3.28 LAB RBC 4.20-6.00 m/uL Low RBC 2.79 LAB HGB 13.0-17.0 g/dL Low Hemoglobin 8.6 LAB HCT 39.0-51.0 % Low Hematocrit 27.2 LAB MCV 80.0-100.0 fL MCV 97.5 LAB MCH 26.0-34.0 pG MCH 30.8 LAB MCHC 30.5-36.0 g/dL MCHC 31.6 LAB RDWCV 11.5-15.0 % RDW-CV High 19.6 LAB PLTCT 150-400 k/uL Low Platelet Count 90 Result Comment: No clot detected. LAB MPV 9.0-12.7 fL MPV 10.5 LAB ANEUT % Neut% 75.0 LAB AANEUT 1.45-7.50 k/uL Abs Neut 2.44 LAB ALYMP % Lymph% 22.0 LAB AALYMP 1.00-4.00 k/uL Abs Low Lymph 0.72 LAB AMONO % Pope% 3.0 LAB AAMONO <0.87 k/uL Abs Pope 0.10 LAB AEOS % Eosin% 0.0 LAB AAEOS <0.46 k/uL Abs Eosin <0.03 LAB ABASO % Baso% 0.0 LAB AABASO <0.11 k/uL Abs Baso <0.03 LAB AUNRBC 0 /100 WBC NRBCs 0.0 LAB ABNRBC <0.01 k/uL Absolute nRBC <0.01 LAB DTYP DTYPE Auto Diff Performed By: #### CMP, CBCDIF #### [facility] [address] [place], [place] [address] HISTORY PHYSICAL Observed: 12/24/2017 Status: COMPLETED Source: PLANO 3:21 PM [facility] REPOSITORY HNO ID: [id number] Author: Maria Alejandra Mcknight Service: General Internal Medicine Author Type: Physician Type: HANDP Filed: 12/25/2017 1:57 PM Note Text: [facility] [place] [facility] [place] History and Physical Examination PRIMARY SERVICE: PATIENT NAME: Frank Rivera SERVICE DATE: 12/24/2017 SERVICE TIME: 3:21 PM HPI: Frank Rivera ( ) is a 62 year old male with pertinent PMH of Atrial fibrillation on apixaban 5mg BID on metoprolol 12.5mg BID HTN Hypothyroidism on levothyroxine 200mcg qdaily Atrial Fibrillation s/p PPM and DCCV in 04/2017 Aortic Stenosis s/p bioprosthetic AVR (27mm [employer] Rich[employer] Trifecta pericardial valve) and RUDY ligation 05/07/17 Sick sinus syndrome s/p pacemaker placement 05/13/17 Hx of CVA with residual dysphagia Chronic Iron Deficiency Anemia (also B12 deficient) Hx of Min-En-Y bypass in 1995 Hx of Upper GI bleeds (1997, 2014, 2015) Pt states that he was feeling lousy, fatigued, more short of breath thus he contacted his PCP who ordered lab work to be completed. He presented to OSH on 12/14 after being found to have hgb 7.5, BUN 70 and Cr 4.12, stool guiac +. Pt underwent work up for GI bleed via EGD on 12/18/17 and Colonoscopy 12/21/17 which was unremarkable. Tagged RBC scan also negative. Pt subsequently underwent right renal biopsy on 12/18 due to unexplained rise in Cr. Initial biopsy results concerning for C3 nephropathy, and thus pt was transferred to [facility] for further work up. Renal biopsy results pending at time of admission. Of note, in the context of anemia with worsening renal function, there were concerns for multiple myeloma thus pt underwent bone marrow biopsy (final biopsy results are pending) Notable Labs at OSH on 12/23: CBC WBC 3.8, Hg 8.4, Plt 84 CMP Na 141, K 5.6, Chloride 119, CO2 17, BUN 60, Cr 3.71 Total protein 7 IgG 3273 H IgA 349 IgM 159 Albumin 2.4 Albmin/glboulin 0.6 Alpha 1 gloublins Lis 0.2 Alpha 2 globulins Lis 0.5 Beta glboluins Lis 0.87 Gamma globulins 4.6 (H) Complement C3 64 (L) Complement C4 17 Free [place] 402.7 (H) Free Lambda 378.8 (H) Free [place]/Lambda ratio 1.06 12/24 labs: CBC shows WBC 3.2, Hg 7.8, Plt 80 CMP shows Na 141, K 5.3, CO2 17, Chlroide 118, BUN 61, Cr 4.07, Phosphorsu 5.5 On admission, pt appeared comfortable, however mentions that he has been feeling short of breath. Denies orthopnea, PND, however does feel short of breath while talking on interview. Denies any fevers, chills, night sweats, chest pains, lightheadedness, dizziness, nausea, vomiting and has been urinating and stooling without difficulty (no blood noted). Imaging at OSH Renal Ultrasound 12/15 - incidental note of gallstones and mild pericholecystic fluid. The gallbladder is partially contracted, precluding accurate evaluation of mural thickness. Acute chase is not excluded. Fatty infiltration of the liver Videoscopic swallow 12/17/17 - penetration and silent aspiration with ingestion of thin liquids GI bleed scan NM 12/22/17 - Negative tagged scan - No definitive scintigraphic evidence of acute GI hemorrhage on current eval CT Guided BM biopsy 12/22/2017 Allergies Penicillin - Hives Past medical History As listed above Past Surgical History S/p aortic valve replacement - 05/07/2017 Hx of carpel tunnel surgery Hx of gastric bypass 1995 Hx of knee surgery Past Family History Mother: CAD, Thyroid disorder Father: CAD Sister: Thyroid Cancer Social Hx Smoking - 25y ppd Alcohol - Never Rec 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 hydrALAZINE (APRESOLINE) 25 mg tablet Take 25 mg by mouth every 8 hours. ascorbic acid-ascorbate sodium 500 mg chew Take 500 mg by mouth once daily. levothyroxine (LEVOXYL) 200 mcg tablet Take 200 mcg by mouth daily before breakfast. magnesium oxide 200 mg magnesium tab Take 2 tablets by mouth once daily. metoprolol tartrate, short acting, (LOPRESSOR) 25 mg tablet Take 12.5 mg by mouth twice daily. ferrous sulfate 325 mg (65 mg iron) tablet Take 325 mg by mouth daily with breakfast. predniSONE (DELTASONE) 20 mg tablet Take 60 mg by mouth once daily. pantoprazole DR (PROTONIX) 20 mg tablet Take 40 mg by mouth twice daily. cyanocobalamin (VITAMIN B-12) 100 mcg tab Take 500 mcg by mouth once daily. apixaban (ELIQUIS) 5 mg tab(s) Take 5 mg by mouth twice daily. INPATIENT MEDICATIONS: Current hospital medications: 0.9% NaCl 3-5 mL 3-5 mL INTRAVENOUS q 12 H metoprolol tartrate (short acting) 12.5 mg tab(s) (LOPRESSOR) 12.[address] BID [address] 40 mg tab(s) (PROTONIX) 40 mg ORAL BID [START ON 12/25/2017] levothyroxine 200 mcg tab(s) (SYNTHROID) 200 mcg ORAL BEFORE BREAKFAST DAILY atorvastatin 80 mg tab(s) (LIPITOR) 80 mg ORAL AT BEDTIME REVIEW OF SYSTEMS: Constitutional: Positive for fatigue HEENT: Negative for frequent or significant headaches Respiratory: Negative for cough, wheezing, or shortness of breath Cardiovascular: Positive for leg swelling Gastrointestinal: Negative for abdominal discomfort, blood in stools or black stools or change in bowel habits Genitourinary: No history of dysuria, frequency, or incontinence Endocrine: Negative for cold or heat intolerance, polyuria, polydipsia and goiter Hematologic: Negative for prolonged bleeding, bruising easily or swollen nodes Neurologic: No history or headaches, syncope, paralysis, seizures or tremors Integumentary: Negative for lesions, rash, and itching. VITAL SIGNS: Patient Vitals for the past 24 hrs: BP Temp Temp src Pulse Resp SpO2 Height Weight 12/24/17 1500 - - - - - - 193 cm (6' 3.98) 115.7 kg (255 lb 1.6 oz) 12/24/17 1409 136/63 36.4 ?C (97.6 ?F) Oral 60 14 96 % - - Last 12 Encounter Wt Readings: Date: Wt: 12/24/2017 115.7 kg (255 lb 1.6 oz) PHYSICAL EXAM: GEN: Age appropriate male, NAD HEENT: MMM. Anicteric. NECK: No thyromegaly or nodularity. No JVD. No carotid bruits. CARDIAC: RRR. S1/S2, NMRGC. PULM: Mild crackles heard at the bases bilaterally. Normal work of breathing. ABD: S, NT, ND. Normoactive bowel sounds. No organomegaly. EXT: 2+ distal pulses bilaterally. Pitting edema to above the knee bilaterally. SKIN: Warm, well-perfused. No rashes or skin breakdown. NEURO: Alert and oriented to person, place, time. Grossly non-focal motor and sensory exam. Lines, Drains, and Airways Line Peripheral 12/24/17 1649 Admission to Hospital Short Right Hand 20 Gauge less than 1 day LAB RESULTS: Recent Labs 12/24/17 1618 NA 137 K 5.6* CHLOR 110* CO2 16* CREAT 4.29* BUN 62* GLUC 117* TPROT 7.6 ALB 2.5* CA 8.2* ALKPHOS 205* TBILI 0.8 AST 42* ALT 30 No results found for: TSH No results found for: HBA1C Mr. Rivera is a 62yo male with pmhx of Atrial fibrillation, HTN, Hypothyroidism Atrial Fibrillation, CAD s/p CABG, Heyde's syndrome, Aortic Stenosis s/p bioprosthetic AVR (27mm [employer] [place] Trifecta pericardial valve) and RUDY ligation 05/07/17, Sick sinus syndrome s/p pacemaker placement 05/13/17, Hx of CVA with residual dysphagia who is presenting as OSH transfer for further work-up of findings of renal biopsy. #Acute on chronic ADRIANNE - in context of Imn-en-y pt has been chronically malnourished - Iron deficient, B12 deficient - causing there to be chronic anemia. -has had previous marignal ulcers leading to bleeds -hx of upper GI bleed, stool + occult blood -s/p 6 units PRBC, Plt x 2, Iron infusions x 2 Diagnostics: -EGD negative -colonoscopy negative -Tagged RBC scan -Coomb's negative -Bone marrow biopsy pending Plan: - CBC - Type + Screen, consented for blood - Transfuse hbg < 7 - Iron studies, LDH, haptoglobin, reticulocyte count, Direct Petar, peripheral smear -SPEP, UPEP, Free [place]/Lambda ratio #IRINA resulting in Hyperkalemia -Cr 0.99 in October increased to 4.2 on admission - concern for MM given anemia + elevated Cr Diagnostics (at OSH): -urine protein 2.3 g -FATOU negative, c-ANCA, p-ANCA negative -Renal u/s unrevealing -C3 low, C4 normal -renal biopsy on 12/18 - initial results concerning for C3 nephropathy. Biopsy read was completed by 3 pathologist at OSH, however unable to synthesize unified final read. -- consulted hematology at OSH: Free [place] 402.7 (H), Free L[place] 378.8 (H), Free [place]/Lambda ratio 1.06 - Bone marrow biopsy completed at OSH, pending results - 12/24 OSH labs: CMP shows Na 141, K 5.3, CO2 17, Chlroide 118, BUN 61, Cr 4.07, Phosphorsu 5.5 - today Cr 4.29, K 5.6 Plan: - Insulin + Dextrose to correct high K of 5.6 - Avoid nephrotoxic agents - consult hematology, nephrology - obtain final renal and bone marrow biopsy results/slides from OSH so our teams can review -s/p 2 doses of prednisone 60 mg at OSH; will determine dose of steroids or plan after speaking with nephrology tomorrow #Lower extremity edema -goes up to thighs b/l -likely suspicion is the kidney -will obtain echo to evaluate the heart -liver does not seem suspicious as cause at this time -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 #Gamma globulinemia -bone marrow biopsy done at OSH, results pending -no hx of back pain or high calcium -will repeat SPEP, UPEP and [place]/Lambda here #Hx of CVA with residual dysphagia-ST evaluation - occurred in 09/2017, since then no residual neurological deficits -c/f pneumonia on admission to OSH due to CXR showing bibasilar infiltrates worse on the right side; urine for strep and legionella negative at OSH; sputum culture show strep group c - Swallow study at OSH showed that pt aspirated on thin liquids, however family insists that he was transitioned from thick --> nectar --> normal diet at OSH. Plan: - speech and swallow eval, will continue normal diet for now as family states that pt tolerated that at OSH. - continue home atorvastatin 80mg qdaily -consult to speech pathology -consult to PT/OT #CAD -CHANDRAKANT in May 2017 shows Ef 65%, mild to moderate TR, good RV systolic functoin, no WMA Plan: - Echocardiogram - continue atorvastatin 80mg qdaily - holding metoprolol 12.5mg BID; also holding hydralazine due to anemia requiring several units of blood #Atrial Fibrillation - s/p RUDY ablation in 04/2017 - s/p DCCV in 04/2017 - rate controlled at home on metoprolol 12.5mg BID - anticoagulated with elliquis 5mg BID Plan: - EKG shows AV pacing - holding metoprolol 12.5mg BID - holding elliquis 5mg BID given hx of recent GI bleeding - monitor on telemetry #hx of Aortic Stenosis s/p AVR -bioprosthetic valve in place #Hypothyrodism Plan: - continue home synthroid 200mcg qdaily Nutrition: Renal diet. NPO after midnight for possible procedures tomorrow DVT/PE: held given context of recent GI bleed Dispo: TBD This is a preliminary note which reflects the assessment of the authoring medicine resident only. The patient remains to be seen by and discussed with internal medicine staff, at which time the final assessment and recommendations may be edited. Galdino Head MD Internal Medicine Resident PGY-1 Pager: [phone] [email or web address] December 24, 2017 TEACHING PHYSICIAN NOTE OF PERSONAL INVOLVEMENT IN CARE I have reviewed the History and Physical Examination obtained and documented by Resident and I personally participated in the hernandez components. I have discussed the case and management of the patient's care with them. The following comments revise or confirm relevant hernandez components of the note. Impression: This is a 62 year old male admitted transferred from OSH for management of IRINA and anemia. Above detailed HANDP reviewed Spoke to multiple family members at bedside 12/25 C/o left lower quadrant abdominal pain. Last BM - last night - brown stools. No nausea or vomiting.No fever O/E General:Not in pain or respiratory distress.Breathing comfortably on room air Heart:Normal S1,S2.No murmur.No JVD Lungs:Good bilateral air entry.No wheezing or crackles. Abdomen:Soft,distended. LLQ- tender . Supra pubic area - tender. Non tender RLQ. Extremities:signficant edema in lower extremities extending from ankles to thighs.Non tender.No redness to suspect cellulitis UA dirty with WCC, RBC, Protein, Luekesterase Kidney biopsy report: Glomeruli showing focal segmental mesangiolysis (3 of 28 glomeruli), vague nodularity (2 of 28 glomeruli) and a single cellular crescent (1 of 28 glomeruli). -Mild tubular injury. -Moderate interstitial fibrosis and tubular atrophy. -strong granular IgM and C3 staining on immunofluorescence, with weak granular staining for C1q and kappa and lambda light chains. -Electron microscopy with occasional, poorly definied electron- dense areas in mesangium. EGD/COlonoscopy reports Assessment : 1) IRINA, Positive P-ANCA 2) Anemia - hemolysis ( Low hapto < 10, high LDH 408, petar positive). No GI bleed noted on EGD/Colonoscopy/Tagged RBC scan at OSH 3) Abdominal pain - LLQ abdominal supra pubic area 4) Lower extremity edema 5) A Fib 6) H/O Aortic stenosis - s/p bioprosthetic AVR in 04/2017 7) H/O Recent CVA - residual deficit- > swallow difficulty with thin liquids.No difficulty with ambulation. 8) H/O Rou en Y gastric bypass Plan: Gradually worsening Cr with decreasing urine out put.Oliguric per charting. P-ANCA positive , low C3. Normal US kidneys at OSH. UA here :dirty with WCC, RBC, Protein, Luek esterase. Urine cultures ordered. Nephrology consulted - discussed with renal team. Was started on prednisone at OSH, received 2 doses.Will need to determine if high dose steroids are needed based on Kidney biopsy results and Urine sediment review.Last dose of Prednisone yesterday.Place him on Renal diet due to high K. Consulted Hematology for hemolysis noted on blood tests here. Apparently received 6 units of PRBC at OSH for anemia.Bone marrow biopsy at OSH unremarkable. GI work up negative for bleeding at OSH. With hemolysis - I would hold Eliquis for now. He recently had stroke. [id number] score 3. Pt cannot get IV contrast due to IRINA. He is unable to drink PO contrast due to swallow difficulty.Would get CT abdomen WO contrast to eval for new onset LLQ abdominal pain. Bladder scan to eval for urinary retention. He did have herring at OSH which was removed prior to transfer. Check ESR/CRP/Lactic acid.Check US RUQ( Mention of pericholecystic fluid on US renal performed at OSH). Blood cultures ordered. Start on Cipro and flagyl empirically.Allergic to Penicillin. US legs - to r/o DVT due to acute inflammatory state Spoke to patient and multiple family members at bedside Maria Alejandra Mcknight MD Associate Staff,Department of Hospital Medicine Pager: [phone] December 25, 2017 Time of Service: 10:30 am Authenticated by responsible provider. NURSING PROG Observed: 12/24/2017 Status: COMPLETED Source: [place] 2:00 PM [facility] REPOSITORY O ID: [id number] Author: Jung (Rn) DIEUDONNE Lewis Service: (none) Author Type: Registered Nurse Type: Nursing Progress Note Filed: 12/24/2017 7:50 PM Note Text: Nursing Progress Note Patient Name: Frank Rivera [address] Daily Note: Pt admitted from an OSH with blood running. Pt A/Ox3. Vss. MD to bedside to discuss plan of care with family. This note was completed by: Jung Lewis RN DISCHARGE SUMMARY Observed: 12/24/2017 Status: F Source: [place] 11:13 AM [facility] REPOSITORY [facility] Medical Records Department [address] [place] [id number] Discharge Summary 12/23/17 1153 MR#: [id number] Acct: [id number] Name: FRANK RIVERA Rep #: [id number] : 1955 62 From: Neida MCKINNEY PCP: Gracy Cuellar DO Status: ADM IN Location: [facility] – [place] HV472-0 <Neida Fischer - Last Filed: 12/23/17 12:01> Discharge Date and Diagnosis Date of Admission: 12/15/17 Date of Discharge: 12/23/17 - Primary Discharge Diagnosis Active and Suspected Problems (Last Reviewed 11/16/17 @ 08:36 by Suzanne Ferris) 1. Acute anemia on chronic iron deficiency anemia, unclear etiology-renal and bone marrow biopsies pending at discharge. 2. Acute kidney injury 3. 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 Richi Tirfecta pericardial valve Aortic stenosis (Chronic) S/P valve replacement with 27mm [employer] Richi Trifecta pericardial valve; Atherosclerotic heart disease of [place] coronary artery without angina pectoris (Chronic) Hyperlipidemia (Chronic) Ventricular hypertrophy (Chronic) Hospital Course and Treatment Imaging Results: Diagnostic Data Renal Ultrasound 12/15/17 09:28 IMPRESSION: 1. Normal ultrasound of the kidneys. 2. The urinary bladder is not visualized. 3. Incidental note of gallstones and mild pericholecystic fluid. The gallbladder is partially contracted, precluding accurate evaluation of mural thickness. Acute cholecystitis is not excluded by this study, however. 4. Fatty infiltration of the liver. Electronically Signed: Christ Vela MD at 16:09 EDT , Service support , Chest X-Ray 12/16/17 09:16 IMPRESSION: Residual bibasilar infiltrates worse on the right side with the blunting of both costophrenic angles worse on the right side Electronically Signed: Yosvany Carlos MD at 11:10 EDT Tel [phone], Service support , Videofluoroscopic Swallow 12/17/17 13:30 IMPRESSION: Penetration and silent aspiration with ingestion of thin liquids. This improves with the chin tuck maneuver. The swallow study findings were discussed with the patient by the speech pathologist at the conclusion of the examination. Please see speech pathology report for more information and recommendations. Electronically Signed: Yosvany Carlos MD at 14:19 EDT Tel [phone], Service support , GI Bleed Scan Nuclear Medicine 12/22/17 08:30 IMPRESSION: 1. NEGATIVE 99m Tc ULTRATAG LABELED BLOOD POOL GASTROINTESTINAL BLEEDING EXAMINATION. 2. There is no definitive typical scintigraphic evidence of acute gastrointestinal hemorrhage on the current evaluation. Electronically Signed: Eliseo Santana DO at 10:44 EDT Tel , Service support , Biopsy CT 12/22/17 10:00 IMPRESSION: Successful CT guided bone marrow biopsy and aspirate of the posterior aspect of the left iliac bone., as described above. Electronically Signed: Yosvany Carlos MD at 11:30 EDT Tel [phone], Service support , Dr. Rizvi- Oncology Dr. Palmer- Nephrology Dr. Sanabria- General surgery Operations: None Procedures: Colonoscopy, EGD, - - Renal biopsy, bone marrow biopsy. Summary of Care Provided: The patient is a 62 year old M admitted 12/15/2017 due to shortness of breath and fatigue. 1. Acute anemia on chronic iron deficiency anemia-History of upper GI bleed. Stool + OB. Status post 5 units PRBC. Plt X2. Continue PPI twice daily. Continue to hold anticoagulation. EGD with Dr. Sanabria 12/18/2017 with no source of bleeding. Colonoscopy showed no bleeding source as well. Hematology following. Patient underwent RBC scan which was negative. Bone marrow biopsy completed and results pending. Hematology suspecting possible multiple myeloma? Further workup pending. Blood count stable. Patient will be discharged home with follow-up with oncology in 1 week. Follow-up with primary care physician in 1 week. Continue iron supplementation. 2. Acute kidney injury, unclear etiology-nephrology involved. Kidney biopsy results pending. Serologies pending. Follow-up with Dr. Palmer in 1 week, renal bx results should be available at that time. Patient started on prednisone 60 mg daily. This will be continued until further follow-up with oncology/nephrology. 3. Hyperkalemia-secondary to #2. Kayexalate x1. Repeat BMP in 3 days. 4. History of CVA with residual dysphagia-ST evaluation. Patient denies cough, fever/chills. No leukocytosis. Pneumonia initially suspected on admission due to chest x-ray which showed bibasilar infiltrates, worse on the right side. Urine for strep and Legionella negative. Sputum culture shows strep C. PNA ruled out. Continue dietary modifications per speech therapy recommendations. 5. Pancytopenia/thrombocytopenia-trend CBC. Plt given X2. 6. CAD s/p CABG-continue statin, metoprolol. Aspirin and Eliquis on hold. 7. Status post aortic valve replacement 8. Sick sinus syndrome status post pacemaker 9. Paroxysmal atrial fibrillation-continue metoprolol. Eliquis on hold secondary to #1. 10. Hypothyroidism-continue Synthroid. General: Alert, Oriented x3, Cooperative, No apparent distress HEENT: Atraumatic, PERRLA, EOMI, Normocephalic Neck: Supple, No JVD, Negative Carotid Bruits Lungs: Clear to auscultation, Normal air movement Cardiovascular: Regular rate, Regular Rhythm, Normal S1, Normal S2, No murmurs Abdomen: Bowel Sounds Present, Soft, Non Tender, Non-Distended Extremities: No clubbing, No cyanosis, No edema, Capillary Refill Less than 3 Seconds Skin: No rashes, No breakdown Musculoskeletal: No Tenderness to Palpation of Joints or Extremities Neurological: Cranial nerves II-XII grossly intact, Neuro grossly intact Psych/Mental Status: Normal Affect, Appropriate Patient seen exam prior to discharge. Physical assessment as noted above. Patient stable for discharge home with further follow-up recommendations as noted above. This patient was seen by FAYE Mathew under the supervision of Dr. Raines. Discharge Diet: - - Low potassium diet Discharge Activity: Return to Normal Activity Call your doctor if you observe: Fever of 101 or Higher, Shortness of breath, Dizziness, Fainting spells, Chest pain Home Medications: Medications to take at Discharge ascorbic acid (vitamin C) 500 mg capsule 500 mg PO QDAY ea 03/26/17 levothyroxine 200 mcg tablet 200 mcg PO QDAY tab 03/26/17 pantoprazole 40 mg tablet,delayed release 40 mg PO BID tab 03/26/17 cyanocobalamin (vit B-12) 500 mcg tablet 500 mcg PO QDAY 03/27/17 magnesium oxide 400 mg capsule 400 mg PO QDAY cap 05/18/17 multivitamin tablet 1 tab PO QDAY 02/26/18 metoprolol tartrate 25 mg tablet 12.5 mg PO BID tab 06/01/17 hydralazine 25 mg tablet 25 mg PO Q8H #90 tab 06/24/17 Acetaminophen [Tylenol] 500 mg PO Q4H PRN PRN 10/27/17 cholecalciferol (vitamin D3) 2,000 unit tablet 2,000 unit PO DAILY 11/16/17 atorvastatin 80 mg tablet 80 mg PO DAILY #90 tab 12/01/17 Ferrous Sulfate [Iron] 325 mg PO BID #60 tablet 12/23/17 Prednisone 60 mg PO DAILY #21 tablet 12/23/17 Following Prescrptions Were Given to Patient: Prednisone 60 mg PO DAILY #21 tablet Ferrous Sulfate [Iron] 325 mg PO BID #60 tablet Other Amb Orders: Basic Metabolic Profile (BMP) Time Frame: 3 Days, Location: Laboratory Primary Care Physician: Gracy Cuellar DO [Primary Care Provider] - Please follow up with your Primary Care Physician in: 1 Week Please Follow Up With: Surjit Rizvi MD - Or Vera Stanton When: Within one week Please Follow Up With: Shantal Palmer DO When: 1 Week Disposition: Home Minutes spent on discharge:: 35 Patient Condition:: Stable Medical Necessity - Tobacco Use Smoking Status: Current some day smoker Meaningful Use Info Meaningful Use Diagnoses (Choose all that apply): None applicable <Loki Raines - Last Filed: 12/24/17 11:13> Discharge Date and Diagnosis - Secondary Discharge Diagnosis Chronic Problems (Last Reviewed 11/16/17 @ 08:36 by Suzanne Ferris) Nicotine abuse (Chronic) Premature atrial contractions (Chronic) 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 Richi Tirfecta pericardial valve Aortic stenosis (Chronic) S/P valve replacement with 27mm [employer] Rich[employer] Trifecta pericardial valve; Atherosclerotic heart disease of [place] coronary artery without angina pectoris (Chronic) Hyperlipidemia (Chronic) Ventricular hypertrophy (Chronic) Hospital Course and Treatment Summary of Care Provided: The patient is a 62 year old M [] Code Visit Addendum: Dr. Raines I personally examined the patient and reviewed the chart. I agree with the above. Mr. King is a 62-year-old male presenting with an acute onset renal failure. He also has acute on chronic anemia and he was transfused 6 units during his stay with no real adequate response. He has a history of a Min-en-Y gastric bypass and both EGD and colonoscopy during the stay were negative as was a red blood cell scan for his gastric remnant. Because of his anemia he was started on iron replacement as well as vitamin C because of the PPI he was taking. There has been a delay in obtaining pathology for his renal biopsy due to difficulty interpreting the biopsy, we have had 3 different pathologist examining the slides with no definitive conclusion. 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 Started on prednisone 60 mg. Related to his acute renal failure he was also hyperkalemic, and was given a dose of Kayexalate. During his stay here his potassium has been maintained between 5.3 and 5.7. He is also had a significant weight gain and this is related to the amount of IV fluid he was given for his acute renal failure and it is not felt to be due to any cardiac component therefore no echo was obtained. Vital Signs - 24 hr 12/24/17 10:38 97.6 F L 60 16 133/77 H 98 12/24/17 10:17 97.5 F L 56 L 16 126/70 H 98 General: Alert, Oriented x3, Cooperative, No apparent distress HEENT: Atraumatic, PERRLA, EOMI, Normocephalic Neck: Supple, No JVD, Negative Carotid Bruits Lungs: Clear to auscultation, Normal air movement Cardiovascular: Regular rate, Regular Rhythm, Normal S1, Normal S2, No murmurs Abdomen: Bowel Sounds Present, Soft, Non Tender, Non-Distended Extremities: No clubbing, No cyanosis, 2+ pitting edema b/l LE Capillary Refill Less than 3 Seconds Skin: No rashes, No breakdown Musculoskeletal: No Tenderness to Palpation of Joints or Extremities Inpatient E AND M: 06810 Disch Hosp 12/23/17 1201 <Electronically signed by eNida ENCISOC> Date Neida Fischer TIME CLOCK MECHANIC-C 12/24/17 1113<Electronically signed by Loki Raines MD> Cosigner Signature (if applicable): Date Loki Raines MD CC: TIME CLOCK MECHANIC-C eNida Fischer; Gracy Cuellar DO; Loki Raines MD Signed TYPE AND SCREEN Collected: 12/24/2017 Status: F Source: [place] 8:50 AM [facility] REPOSITORY Order Comment: CMV NEG? N Number of units to transfuse: 1 Reason for Ordering Blood: Chronic Are the blood/blood products to be transfused? Y Is the patient having/had surgery? N Give When? When Ready Irradiated? N Leukodepleted? Y TYPE CODE TESTS RESULT OUT OF RANGE REFERENCE UNITS LAB B10.0800 A Normal BLOOD TYPE GEL POSITIVE LAB B100.4000 Normal Antibody NEGATIVE Screen Performed By: #### B101.7450 #### [facility] [address] [place], [address] Collected: 12/24/2017 Status: F Source: [place] 8:50 AM [facility] REPOSITORY TYPE CODE TESTS RESULT OUT OF REFERENCE UNITS RANGE LAB U100.0000 [id number] TRANSFUSED PRODUCT: T AND S with Crossmatch, Red Cells COUNT: 1 Performed By: #### U100.0000 #### Non-[facility] - refer to report for specific site RENAL PROFILE Collected: 12/24/2017 Status: F Source: [place] 5:05 AM [facility] REPOSITORY TYPE CODE TESTS RESULT OUT OF RANGE REFERENCE UNITS LAB L501.0100 74-106 mg/dL High GLU 110 Result Comment: Fasting Glucose result from 100 to 125 mg/dL suggests IMPAIRED HOMEOSTASIS per A.D.A. criteria. Please note revised GLUCOSE reference range effective 2017. LAB L501.1000 7-18 mg/dL High BUN 61 LAB L501.1100 0.70-1.30 mg/dL High CREAT,SERUM 4.07 Result Comment: The validity of the calculated GFR AND GFRAA in patients over 70 years has not been determined. Clinical correlation is essential. LAB L501.1110 >60 mL/min Low EST GFR 16 Result Comment: Non- GFR Calc LAB L501.1115 >60 mL/min Low EST GFR - AA 19 Result Comment: GFR Calc LAB L501.1255 ml/min Normal Estimated CRCL 23.40 LAB L501.1300 10-20 RATIO Normal BUN/CRE 15.0 LAB L501.1800 3.2-5. g/dL Low 0 ALB 1.9 LAB L501.2200 8.5-10 mg/dL Low .1 CA 7.9 LAB L501.2300 2.5-4. mg/dL High 9 PHOS 5.5 LAB L501.5300 136-14 mmol/L Normal 5 NA 141 LAB L501.5600 3.5-5. mmol/L High 1 K 5.3 LAB L501.5900 98-107 mmol/L High CL 118 LAB L501.6100 21.0-3 mmol/L Low 2.0 CO2 17.0 Performed By: #### L500.3600 #### [facility] [address] [place], [place], [address] CBC-COMPLETE BLOOD CNT Collected: 12/24/2017 Status: F Source: [place] NO DIFF 5:05 AM [facility] REPOSITORY TYPE CODE TESTS RESULT OUT OF RANGE REFERENCE UNITS LAB L100.1000 4.4-11.0 K/mm3 Low WBC 3.2 LAB L100.1200 4.6-6.2 M/mm3 Low RBC 2.48 LAB L100.1300 13.0-16.5 g/dl Low HGB 7.8 LAB L100.1400 40-54 % Low HCT 24.6 LAB L100.1500 80-94 fL High MCV 99.2 LAB L100.1600 27.0-32.0 pg Normal MCH 31.5 LAB L100.1700 32-36 g/gl Low MCHC 31.7 LAB L100.1810 11.6-14.6 % High RDW CV 19.4 LAB L100.1820 35.1-43.9 fl High RDW SD 68.1 LAB L100.1900 150-450 K/mm3 Low PLT 80 LAB L100.2000 6.2-12.0 fl Normal MPV 10.2 Performed By: #### L100.0500, L100.4500 #### [facility] [address] [place], [address] DIFFERENTIAL COMMENT Collected: 12/24/2017 Status: F Source: [place] 5:05 AM [facility] REPOSITORY TYPE CODE TESTS RESULT OUT OF RANGE REFERENCE UNITS LAB L100.4500 Normal SMEAR COMMENT SCANNED Performed By: #### L100.0500, L100.4500 #### [facility] [address] [place], [address] HOSP Observed: 12/24/2017 Status: COMPLETED Source: [place] 12:00 AM [facility] REPOSITORY Patient:Frank Rivera MRN: <[id number]> Height:6' 4(1.93 m) Weight:No patient weight recorded within the last 30 days. Outpatient Medications as of 01/28/18: atorvastatin (LIPITOR) 80 mg tablet hydrALAZINE (APRESOLINE) 25 mg tablet ascorbic acid-ascorbate sodium 500 mg chew levothyroxine (LEVOXYL) 200 mcg tablet magnesium oxide 200 mg magnesium tab metoprolol tartrate, short acting, (LOPRESSOR) 25 mg tablet ferrous sulfate 325 mg (65 mg iron) tablet predniSONE (DELTASONE) [address] (PROTONIX) 20 mg tablet cyanocobalamin (VITAMIN B-12) 100 mcg tab apixaban (ELIQUIS) 5 mg tab(s) Admission/Clinic Administered Medications as of 01/28/18: senna-docusate 8.6-50 mg 1 tablet (SENNA-S) polyethylene glycol 3350 17 g packet (MIRALAX, GLYCOLAX) doxycycline hyclate 100 mg cap(s) (VIBRAMYCIN) ALPRAZolam 0.25 mg tab(s) (XANAX) 0.9% NaCl 3-5 mL 0.9% NaCl 10 mL aspirin 162 mg chewable tab(s) potassium chloride ER 10-60 mEq tab(s) (K-DUR, KLOR-CON) therapeutic multivitamin 1 tablet tab(s) (THERA VITAMIN) pantoprazole DR 20 mg tab(s) (PROTONIX) acetaminophen 650 mg tab(s) (TYLENOL) bisacodyl 10 mg suppository (DULCOLAX) sodium phosphate-sodium bisphosphate 133 mL enema (FLEET) magnesium hydroxide 400 mg/5 mL 30 mL (MOM) heparin 5,000 Units injection Darbepoetin Tereza In Polysorbat 60 mcg injection (ARANESP) carvedilol 25 mg tab(s) (COREG) ondansetron (PF) 4 mg injection (ZOFRAN) lidocaine 5 % 1 Patch (LIDODERM) lidocaine patch - REMOVE lidocaine - VERIFY PATCH oxyCODONE IR 5-10 mg tab(s) (ROXICODONE) cefTRIAXone 2 g in D5W 100 mL MB+ (ROCEPHIN) calcium carbonate 1,000 mg chewable tab(s) (TUMS) sodium chloride 0.65 % 2 [place] (AYR, OCEAN) swfbsykm-nesk-kwsjn acid chewable tablet (CENTRUM) cholecalciferol 3,000 Units tab(s) (VITAMIN D3) cyanocobalamin 500 mcg tab(s) (VITAMIN B-12) thiamine 100 mg tab(s) (VITAMIN B1) diphenhydrAMINE 25 mg (BENADRYL) tamsulosin ER 0.4 mg cap(s) (FLOMAX) levothyroxine 200 mcg tab(s) (SYNTHROID) atorvastatin 80 mg tab(s) (LIPITOR) Problem List: IRINA (acute kidney injury) (HCC) [N17.9] Atrial fibrillation (HCC) [I48.91] HTN (hypertension) [I10] Subacute bacterial endocarditis [I33.0] Pain, postoperative, acute [G89.18] Transition of care performed with sharing of clinical summary [Z91.89] Discharge planning issues [Z02.9] Allergies: Penicillin Date Verified: 01/28/18 Lab Values Lab Value Units Date High Low POTA* 4.5 mmol/L 01/28/2018 5.1 3.7 MARQUIS* 27.0 % 01/28/2018 51.0 39.0 Progress Notes (CARD FUNCTION LAB J1-5): Kesha Dhaliwal, RN, RN 01/01/2018 3:42 PM Signed AMBULATORY PATIENT EDUCATION TOPIC: CHANDRAKANT Procedure READINESS TO LEARN COGNITIVE ABILITY: Alert and oriented MOTIVATION TO LEARN: Interested FAMILY SUPPORT: Unable to assess - Family not present INSTRUCTION PROVIDED TO: Patient PATIENT LEARNS BEST BY: Individual Instruction Verbal Instruction FACTORS AFFECTING LEARNING: None PHYSICAL LIMITATIONS AFFECTING LEARNING: None LEARNING RESPONSE DIAGNOSIS: R/O Endocarditis METHOD OF INSTRUCTION: Individual instruction Verbal instruction PATIENT / FAMILY RESPONSE: Verbalizes understanding of: POST-OPERATIVE INSTRUCTIONS-Correct actions to take to reduce postoperative complications PRE-PROCEDURE INSTRUCTIONS-Correct action to take to follow pre-procedure instructions FOLLOW-UP PLAN: Complete - No need for follow-up SUPPLEMENTAL MATERIAL: Procedure discharge instructions REFERRAL (RECOMMENDATION): None Electronically Signed By Kesha Dhaliwal RN In Department: CARDIOLOGY DISCHARGE INSTRUCTION Observed: 12/23/2017 Status: F Source: [place] 11:52 AM [facility] REPOSITORY [facility] Medical Records Department [address] [place] [address] Instructions for Home/Discharge Instructions 12/23/17 1140 MR#: [id number] Acct: [id number] Name: FRANK RIVERA Fiona Rep #: [id number] : 1955 62 From: Neida Fischer TIME CLOCK MECHANIC-C PCP: Gracy Cuellar DO Status: ADM IN - Discharge Diagnoses Current Active Problems: Current Active and Chronic Problems (Last Reviewed 11/16/17 @ 08:36 by Suzanne Ferris) Acute on chronic anemia (Acute) Hyperglobulinemia (Acute) Pancytopenia (Acute) ARF (acute renal failure) (Acute) You will use the following diet at home:: No restrictions - Low Potassium diet. Chin tuck with all thin liquids. Discharge Activity: Return to Normal Activity Call your doctor if you observe: Fever of 101 or Higher, Shortness of breath, Dizziness, Fainting spells, Chest pain Allergies/Adverse Reactions: Allergies Penicillins Allergy (Verified 12/14/17 21:35) Hives Medications to take at Discharge ascorbic acid (vitamin C) 500 mg capsule 500 mg PO QDAY ea 03/26/17 levothyroxine 200 mcg tablet 200 mcg PO QDAY tab 03/26/17 pantoprazole 40 mg tablet,delayed release 40 mg PO BID tab 03/26/17 cyanocobalamin (vit B-12) 500 mcg tablet 500 mcg PO QDAY 03/27/17 magnesium oxide 400 mg capsule 400 mg PO QDAY cap 05/18/17 multivitamin tablet 1 tab PO QDAY 05/18/17 metoprolol tartrate 25 mg tablet 12.5 mg PO BID tab 06/01/17 hydralazine 25 mg tablet 25 mg PO Q8H #90 tab 06/24/17 Acetaminophen [Tylenol] 500 mg PO Q4H PRN PRN 10/27/17 cholecalciferol (vitamin D3) 2,000 unit tablet 2,000 unit PO DAILY 11/16/17 atorvastatin 80 mg tablet 80 mg PO DAILY #90 tab 12/01/17 Ferrous Sulfate [Iron] 325 mg PO BID #60 tablet 12/23/17 Prednisone 60 mg PO DAILY #21 tablet 12/23/17 The following prescriptions were given: Prednisone 60 mg PO DAILY #21 tablet Ferrous Sulfate [Iron] 325 mg PO BID #60 tablet Orders to be completed after discharge: Basic Metabolic Profile (BMP) Time Frame: 3 Days, Location: Laboratory Primary Care Physician: Gracy Cuellar DO [Primary Care Provider] - Please follow up with your Primary Care Physician in: 1 Week Test Results: Test results from this visit will be discussed in further detail at your follow-up appointment, if applicable. Please Follow Up With: Surjit Rizvi MD - Or Vera Stanton When: Within one week Please Follow Up With: Shantal Palmer DO When: 1 Week Proposed Discharge Date: 12/23/17 12/23/17 1152 <Electronically signed by Neida MCKINNEY> Date Neida MCKINNEY CC: Shantal Palmer DO; Sandie Sanabria MD; Surjit Rizvi MD; Gracy Cuellar DO IMMUNOFIXATION URINE Collected: 12/23/2017 Status: F Source: LUX 7:20 AM [facility] REPOSITORY Order Comment: URINE NEEDS COLLECTED TYPE CODE TESTS RESULT OUT OF RANGE REFERENCE UNITS LAB L3600.4030 . Normal LIS Urine Comment Result Comment: No monoclonality detected. Performed at: [address] [id number] Truck Driving Instructor: Kaiden Warner PhD, Phone: [phone] Performed By: #### L3600.4030 #### [facility] (refer to report for specific site) refer to report for address and phone number CBC-COMPLETE BLOOD CNT Collected: 12/23/2017 Status: F Source: LUX NO DIFF 5:20 AM [facility] REPOSITORY TYPE CODE TESTS RESULT OUT OF RANGE REFERENCE UNITS LAB L100.1000 4.4-11.0 K/mm3 Low WBC 3.9 LAB L100.1200 4.6-6.2 M/mm3 Low RBC 2.62 LAB L100.1300 13.0-16.5 g/dl Low HGB 8.4 LAB L100.1400 40-54 % Low HCT 26.1 LAB L100.1500 80-94 fL High MCV 99.6 LAB L100.1600 27.0-32.0 pg High MCH 32.1 LAB L100.1700 32-36 g/gl Normal MCHC 32.2 LAB L100.1810 11.6-14.6 % High RDW CV 20.0 LAB L100.1820 35.1-43.9 fl High RDW SD 70.6 LAB L100.1900 150-450 K/mm3 Low PLT 84 LAB L100.2000 6.2-12.0 fl Normal MPV 10.4 Performed By: #### L100.0500, L100.4500 #### [facility] [address] [place], [place], [id number] DIFFERENTIAL COMMENT Collected: 12/23/2017 Status: F Source: LUX 5:20 AM [facility] REPOSITORY TYPE CODE TESTS RESULT OUT OF RANGE REFERENCE UNITS LAB L100.4500 Normal SMEAR COMMENT SCANNED Result Comment: 1+ ROULEAUX 2+ ANISOCYTOSIS Performed By: #### L100.0500, L100.4500 #### [facility] [address] [place], [place], [address] BASIC METABOLIC Collected: 12/23/2017 Status: F Source: LUX PROFILE (BMP) 5:20 AM [facility] REPOSITORY TYPE CODE TESTS RESULT OUT OF RANGE REFERENCE UNITS LAB L501.0100 74-106 mg/dL Normal GLU 83 Result Comment: Please note revised GLUCOSE reference range effective 2017. LAB L501.1000 7-18 mg/dL High BUN 60 LAB L501.1100 0.70-1.30 mg/dL High CREAT,SERUM 3.71 Result Comment: The validity of the calculated GFR AND GFRAA in patients over 70 years has not been determined. Clinical correlation is essential. LAB L501.1110 >60 mL/min Low EST GFR 18 Result Comment: Non- GFR Calc LAB L501.1115 >60 mL/min Low EST GFR - AA 22 Result Comment: GFR Calc LAB L501.1255 ml/min Normal Estimated CRCL 25.67 LAB L501.1300 10-20 RATIO Normal BUN/CRE 16.2 LAB L501.2200 8.5-10 mg/dL Low .1 CA 7.8 LAB L501.5300 136-14 mmol/L Normal 5 NA 141 LAB L501.5600 3.5-5. mmol/L High 1 K 5.6 LAB L501.5900 98-107 mmol/L High CL 119 LAB L501.6100 21.0-3 mmol/L Low 2.0 CO2 17.0 LAB L501.6200 5-15 Normal GAP 5 Performed By: #### L500.2500 #### [facility] [address] [facility] [place], [place], [address] MAGNESIUM Collected: 12/23/2017 Status: F Source: [place] 5:20 AM [facility] REPOSITORY Order Comment: Comments: add to todays renal panel TYPE CODE TESTS RESULT OUT OF RANGE REFERENCE UNITS LAB L501.5200 1.6-2.6 mg/dL Normal MG 2.0 Performed By: #### L501.5200 #### [facility] [address] [place], [address] BONE MARROW ASPIRATON Collected: 12/22/2017 Status: F Source: [place] 12:23 PM [facility] REPOSITORY TYPE CODE TESTS RESULT OUT OF RANGE REFERENCE UNITS LAB L350.0900 SEE Normal BONE PATHOLOGY MARROW ASP REPORT Result Comment: Specimen submitted to Anatomical Pathology Department for testing. Performed By: #### L350.0900 #### [facility] [address] [facility] [place], [address] CBC-COMPLETE BLOOD CNT Collected: 12/22/2017 Status: F Source: LUX NO DIFF 5:15 AM [facility] REPOSITORY TYPE CODE TESTS RESULT OUT OF RANGE REFERENCE UNITS LAB L100.1000 4.4-11.0 K/mm3 Low WBC 4.0 LAB L100.1200 4.6-6.2 M/mm3 Low RBC 2.83 LAB L100.1300 13.0-16.5 g/dl Low HGB 8.9 LAB L100.1400 40-54 % Low HCT 28.2 LAB L100.1500 80-94 fL High MCV 99.6 LAB L100.1600 27.0-32.0 pg Normal MCH 31.4 LAB L100.1700 32-36 g/gl Low MCHC 31.6 LAB L100.1810 11.6-14.6 % High RDW CV 20.6 LAB L100.1820 35.1-43.9 fl High RDW SD 72.4 LAB L100.1900 150-450 K/mm3 Low PLT 84 LAB L100.2000 6.2-12.0 fl Normal MPV 10.1 Performed By: #### L100.0500, L100.4500 #### [facility] [address] [place], [place], [id number] DIFFERENTIAL COMMENT Collected: 12/22/2017 Status: F Source: LUX 5:15 AM [facility] REPOSITORY TYPE CODE TESTS RESULT OUT OF RANGE REFERENCE UNITS LAB L100.4500 Normal SMEAR COMMENT SCANNED Result Comment: 2+ ANISOCYTOSIS NOTED Performed By: #### L100.0500, L100.4500 #### [facility] [address] [place], [address] RENAL PROFILE Collected: 12/22/2017 Status: F Source: [place] 5:15 AM [facility] REPOSITORY TYPE CODE TESTS RESULT OUT OF RANGE REFERENCE UNITS LAB L501.0100 74-106 mg/dL Normal GLU 85 Result Comment: Please note revised GLUCOSE reference range effective 2017. LAB L501.1000 7-18 mg/dL High BUN 60 LAB L501.1100 0.70-1.30 mg/dL High CREAT,SERUM 3.62 Result Comment: The validity of the calculated GFR AND GFRAA in patients over 70 years has not been determined. Clinical correlation is essential. LAB L501.1110 >60 mL/min Low EST GFR 18 Result Comment: Non- GFR Calc LAB L501.1115 >60 mL/min Low EST GFR - AA 22 Result Comment: GFR Calc LAB L501.1255 ml/min Normal Estimated CRCL 26.31 LAB L501.1300 10-20 RATIO Normal BUN/CRE 16.6 LAB L501.1800 3.2-5. g/dL Low 0 ALB 1.9 LAB L501.2200 8.5-10 mg/dL Low .1 CA 7.6 LAB L501.2300 2.5-4. mg/dL Normal 9 PHOS 4.1 LAB L501.5300 136-14 mmol/L Normal 5 NA 141 LAB L501.5600 3.5-5. mmol/L High 1 K 5.7 LAB L501.5900 98-107 mmol/L High CL 118 LAB L501.6100 21.0-3 mmol/L Low 2.0 CO2 17.0 Performed By: #### L500.3600 #### [facility] [address] [place], [address] PROTHROMBIN TIME W/INR Collected: 12/22/2017 Status: F Source: [place] 5:15 AM [facility] REPOSITORY TYPE CODE TESTS RESULT OUT OF RANGE REFERENCE UNITS LAB L300.4150 11.7-14.9 SECONDS High PROTIME 18.5 LAB L300.4200 Normal INR 1.5 Performed By: #### L300.3900, L300.4310 #### [facility] [address] [place], [address] PARTIAL THROMBOPLAST Collected: 12/22/2017 Status: F Source: [place] TIME 5:15 AM [facility] REPOSITORY TYPE CODE TESTS RESULT OUT OF REFERENCE UNITS RANGE LAB L300.4310 24.1-36.2 Seconds High PTT 47.3 Performed By: #### L300.3900, L300.4310 #### [facility] [address] [place], [address] CBC W/DIFF, AUTOMATED Collected: 12/22/2017 Status: F Source: LUX 5:15 AM [facility] REPOSITORY Order Comment: DIFF ADDED PER BONE MARROW ASPIRATION PROCEDURE TYPE CODE TESTS RESULT OUT OF RANGE REFERENCE UNITS LAB L100.1000 4.4-11.0 K/mm3 Low WBC 4.0 LAB L100.1200 4.6-6.2 M/mm3 Low RBC 2.83 LAB L100.1300 13.0-16.5 g/dl Low HGB 8.9 LAB L100.1400 40-54 % Low HCT 28.2 LAB L100.1500 80-94 fL High MCV 99.6 LAB L100.1600 27.0-32.0 pg Normal MCH 31.4 LAB L100.1700 32-36 g/gl Low MCHC 31.6 LAB L100.1810 11.6-14.6 % High RDW CV 20.6 LAB L100.1820 35.1-43.9 fl High RDW SD 72.4 LAB L100.1900 150-450 K/mm3 Low PLT 84 LAB L100.2000 6.2-12.0 fl Normal MPV 10.1 LAB L100.2100 47-70 % Normal NEUT% 61.1 LAB L100.2200 19-41 % Normal LY% 30.5 LAB L100.2300 0-10 % Normal MONO% 7.8 LAB L100.2400 0-5 % Normal EO% 0.3 LAB L100.2500 0-1 % Normal BASO% 0.3 LAB L100.2550 0.0-0.9 % Normal IM GRAN % 0.000 Result Comment: IG% - Immature Granulocytes (promyelocytes, myelocytes and metamyelocytes) > 1% indicates that a LEFT SHIFT is Present. LAB L100.2620 2.0-7.7 X10 3/uL Normal Absolute Neut 2.4 LAB L100.2720 0.83-4.51 X10 3/ul Normal Absolute Lymph 1.21 LAB L100.4500 Normal SMEAR COMMENT SCANNED Result Comment: 2+ MICROCYTES 2+ ANISOCYTOSIS Performed By: #### L100.0100 #### [facility] [place], [address] BONE MARROW BIOPSY Observed: 12/22/2017 Status: F Source: LUX 12:00 AM [facility] REPOSITORY Patient: FRANK RIVERA : 1955 (62/M) Acct Num: [id number] Phys: Loki Raines MD Unit Num: [id number] Loc: MS2 [id number] Specimen: [id number] Received: 12/22/17 - 9836 Spec Type: BMB TISSUES 1 TISSUES: A. Bone marrow, NOS - CORE B. Bone marrow, NOS - CLOT C. Bone marrow, NOS - SLIDES X 11 + 1 [facility] ADDENDUM Addendum Number 2 This addendum is added to incorporate an outside pathology consultation report. The case was examined at [facility] (#[id number]) and the following diagnosis was rendered. Bone marrow, aspirate smears, core biopsy and clot section with peripheral blood smear: Normocellular marrow (40%) with trilineage hematopoiesis. Mild increase in polytypic plasma cells. Normocytic anemia and thrombocytopenia. Please see complete above mentioned consultation report in EMR Addendum Signed [facility] 01/21/18 <signature on file> Addendum Number 1 CYTOGENETICS REPORT FROM [facility] INTERPRETATION: Karyotype: 46,XY[20] A normal male karyotype was observed in twenty metaphases analyzed. ONKOSIT NGS MDS PANEL SEQUENCING REPORT FROM [facility] RESULT SUMMARY: Normal Please see complete report in e-chart or EMR for further details Addendum Signed Derik Alcala 01/07/18 <signature on file> BONE MARROW GROSS A - Received is a container labeled with the patient's name and designated left hip. The specimen consists of a minute fragment of bone measuring 0.2 x 0.2 x 0.1 cm and also received are multiple fragments of bone measuring in aggregate 1.2 x 0.5 x 0.1 cm. The specimen is totally submitted in one cassette after decalcification. B - Received labeled with the patient's name and designated left hip is a specimen that consists of approximately 5 cc of bloody fluid that on filtration yields multiple minute fragments of blood clots measuring in aggregate 2 x 0.7 cm and <0.1 cm in thickness. The specimen is totally submitted in one cassette. C - Also received are 11 unstained and 1 peripheral stained slides. The unstained slides are submitted for appropriate staining. Also received is one green top tube which is sent to our reference lab for flow , cytogenetics, MDS and plasma cell analysis. / SJ:rg 12/22/17 TC:5 CPT: 11888, 25811, 83516 x2, 23412 x3, 01253 BONE MARROW STUDY Slides are reviewed. CBC DATE: 12/22/17 WBC 4.0; RBC 2.83; HGB 8.9; HCT 28.2; MCV 99.6; RDW 20.6; PLTS 84,000 SEGS 61.1%; LYMPHS 30.5%; MONOS 7.8%; EOS 0.3%; BASOS 0.3% PERIPHERAL SMEAR: Submitted. RBC: Macrocytic anemia. WBC: Leukopenia. The WBC count is compatible to as reported above. PLTS: Decreased. BONE MARROW ASPIRATE DIFFERENTIAL: 200 cell count. Blasts % (normal 0-2): 1 Promyelocytes % (normal 1-5): 1 Myelocytes and metamyelocytes % (normal 17-41): 32 Bands and Segs % (normal 15-32): 34 Eos % (normal 1-6): 1 Basos % (normal 0-1): 0 Monocytes % (normal 0-4): 0 Erythroid Precursors % (normal 17-35): 12 Lymphocytes % (normal 7-13): 14 Plasma Cells % (normal 0-2): 5 ASPIRATE FINDINGS: Site: Left hip Paucispicular, Cellular M/E ratio: 5.6 (Normal 1.5-4.0) Megakaryocytes: Present. Micro- and hypolobated megakaryocytes are noted. Erythropoiesis: Normoblastic. Granulopoiesis: Progressive and unremarkable. Comment: Mild increase of plasma cells is noted. Plasma cells appear mature. CORE BIOPSY FINDINGS: Site: Left hip Adequacy: Adequate Cellularity: 50% M/E ratio: Within normal limits. Megakaryocytes: Present and adequate in number. Bony trabeculae: Unremarkable. Granulomas: Absent. Lymphoid aggregate: Absent. Atypical infiltrate: Present. Comment: Mild increase of plasma cells is noted. IHC ([id number]) supports the diagnosis of mild plasmacytosis. Definite monoclonality is not seen. ASPIRATE CLOT FINDINGS: Site: Left hip Marrow particles: Numerous Cellularity: 40% M/E ratio: Within normal limits. Megakaryocytes: Present and adequate in number. Granulomas: Absent. Lymphoid aggregates: Absent. Atypical infiltrates: Present. Comment: Mild increase of plasma cells is noted. Focal clustering is also noted. IHC ([id number]) supports the diagnosis of mild plasmacytosis. Definite monoclonality is not seen. SPECIAL STAINS WITH MATCHED CONTROLS: Iron: Absent Reticulin: No significant increase of reticulin fibers is noted. PAS: Highlights myeloid cells and megakaryocytes. COMMENT Immunohistochemistry ([id number]) supports the diagnosis of mild plasmacytosis. Definite monoclonality is not seen. Clinical correlation and appropriate follow up are necessary. BONE MARROW DIAGNOSIS Left hip bone marrow core, clot and aspirate smears: Normocellular marrow with mild plasmacytosis. Iron - absent. Peripheral blood - macrocytic anemia and thrombocytopenia. Flow cytometry study from [facility] shows no evidence for abnormal myeloid maturation or an increased blast population. There is no evidence for a lymphoproliferative disorder or plasma cell neoplasm. The complete report is viewable in patient's EMR. Cytogenetic studies are pending at this time. SJ:huma 12/25/17 HEADER OPERATION: Bone marrow biopsy and aspiration PRE-OP DIAGNOSIS: Chronic anemia, acute renal failure TISSUE SUBMITTED: A - Core, B - Clot, C - Smears, and send outs (flow, cytogenetics, MDS and plasma cell analysis) Signed Derik Alcala 12/25/17 <signature on file> Performed By: #### PBMB #### [facility] [address] [place], [place], [address] IMMUNOHISTOCHEMISTRY Observed: 12/22/2017 Status: F Source: [place] 12:00 AM [facility] REPOSITORY Patient: FRANK RIVERA : 1955 (62/M) Acct Num: [id number] Phys: Loki Raines MD Unit Num: [id number] Loc: MS2 [id number] Specimen: [id number] Received: 12/23/17 - 1018 Spec Type: IMMUNO TISSUES 1 TISSUES: A. Bone marrow of iliac crest B. Bone marrow of iliac crest SPECIMEN INFORMATION: Tissue Source: A - Bone marrow core, B - Bone marrow clot Clinical Info: Chronic anemia, acute renal failure Specimen Number: [id number] A AND B CPT code: 46436 x2, 13514 x4 METHODOLOGY: Deparaffinized sections of prefer/formalin-fixed tissue or PAP/DQ stained slides are incubated with monoclonal/polyclonal antibodies/oligonucleotide probes. Localization is made via biotin free immunoperoxidase method. Appropriate controls are performed and reacted as expected. Results on target cell population are indicated in the following table: RESULTS: ANTIBODY / CLONE RESULT Block A CD138 (B-A38) positive [place] (polyclonal) positive * Lambda (polyclonal) positive * Block B CD138 (B-A38) positive [place] (polyclonal) positive * Lambda (polyclonal) positive * * Very high background staining. These tests were developed and their performance characteristics determined by [facility]. They may not have been cleared or approved by the U.S. Food and Drug Administration. The FDA has determined that such clearance or approval is not necessary. INTERPRETATION: A. Bone marrow core: Mild plasmacytosis. See comment. B. Bone marrow clot: Mild plasmacytosis. See comment. SJ:huma 12/25/17 Comment: A AND B - Definite monoclonality is not seen. PHYSICIAN AND INSTITUTION [place] [id number] Signed Derik Alcala 12/25/17 <signature on file> Performed By: #### PIMM #### [facility] [address] [place] [address]. [place], [place], [address] CONSULTATION Observed: 12/21/2017 Status: F Source: [place] 4:17 PM [facility] REPOSITORY [facility] Medical Records Department [address] [place] [id number] Consultation 12/21/17 1023 MR#: [id number] Acct: [id number] Name: FRANK RIVERA Rep #: [id number] : 1955 62 From: Vera Stanton [employer]-C PCP: Gracy Cuellar DO Status: ADM IN Y Location: [facility] [place] [id number] Subjective Date of Service:: 12/21/17 Chief Complaint: Anemia History of Present Illness: Mr. Frank Rivera is a pleasant 62 year old man with a past medical history significant for stroke, aortic valve replacement and pacemaker, min-en-y gastric bypass in 1995, chronic anemia associated with malabsorption of iron, B12 deficiency and intermittent GI bleed. He presented to [facility] ED on 12/14/17 subsequent to having blood work for his pcp, Dr. Gracy Cuellar in the ambulatory setting which revealed a Hgb 7.5, BUN 70 and creatinine is 4.12. Stool guaiac positive. Anticoagulation has been held. He underwent an EGD 12/18/17 which was essentially unremarkable and right renal biopsy on 12/18/17 pathology of which is still pending. Has received 5 units of PRBCs this admission and 2 pks platelets. Patient reports chronic fatigue with exertional dyspnea exacerbations. States he takes b12 PO daily and has required intermittent iron infusions in the past, last being 2016. Patient is a good historian and vividly describes previous 3 episodes of GI bleed in the past, 1997, 2014 and 2015. States during those episodes he noted cruz blood and instantly felt dizzy/lightheaded after experiencing hematochezia. Denies melena/hematochezia of late. Specifically denies weight loss, CP, new onset bone pain, abd pain and any other overt episodes of bleeding, although admits he bruises easily. States tolerated bowel prep well and is expected to undergo colonoscopy later today. Past family history as listed below. Past Medical History: Chronic Problems (Last Reviewed 11/16/17 @ 08:36 by Suzanne Ferris) Nicotine abuse (Chronic) Premature atrial contractions (Chronic) Left ventricular hypertrophy (Chronic) [facility] current use of 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 (Chronic) Presence of permanent cardiac pacemaker (Chronic 05/13/17) Structure Vision; Mitral valve insufficiency and aortic valve insufficiency (Chronic) Sick sinus syndrome (Chronic) S/P permanent pacemaker 05/13/2017; S/P aortic valve replacement (Chronic 05/07/17) 27mm [employer] Tirfecta pericardial valve Aortic stenosis (Chronic) S/P valve replacement with 27mm [employer] Richi Trifecta pericardial valve; Atherosclerotic heart disease of [place] coronary artery without angina pectoris (Chronic) Hyperlipidemia (Chronic) Ventricular hypertrophy (Chronic) Past Medical/Surgical History: Past Medical History - Most Recent Inpatient Visit Past Medical History Start: 12/15/17 00:30 Text: Status: Complete Freq: ONCE Protocol: Document 12/15/17 00:40 MEP (Rec: 12/15/17 00:46 [facility] [id number] BMI Required to complete PMH What is Patient's BMI 28.6 Neurologic Medical History Hx Stroke/TIA Yes Hx Dementia/Alzheimer's No Hx Parkinson's Disease No Hx Seizures No Hx Multiple Sclerosis No Hx Migraines No Cardiac Medical History VTE Present on Admission No Hx Hypertension Yes Hx Chest Pain/Angina No Hx Heart Attack No Hx Cardiac Surgery/Stents/Etc. Yes: aortic valve and pacemaker Hx Heart Failure No Hx Pacemaker/AICD Yes Hx Irregular Heartbeat and/or Afib No Hx Anticoagulant Therapy Yes Query Text:(Coumadin, Aspirin, Plavix, Xarelto, etc.) Hx Pain in Legs when Walking/Leg Cramps No Respiratory Medical History Hx COPD No Hx Emphysema No Hx Smoking Yes Smoking Status Current some day smoker Hx Tobacco Use in last 12 months Yes Sent to [facility] Yes Hx Sleep Apnea No Do you snore loudly (louder than talking Yes or can be heard through closed doors)? Do you often feel tired/ fatigued/ Yes sleepy during daytime? Has anyone observed you stop breathing No during sleep? STOP Results Positive GI Medical History Hx Ulcer Yes: GI bleed Hx Hepatitis No Hx Cirrhosis No Hx GI Bleed No Hx Unplanned Weight Loss No Genitourinary Medical History Indwelling Catheter in Place on Arrival/ No Admission Hx Renal Disease No Hx Dialysis No Musculoskeletal History Hx Arthritis No Hx Rheumatoid Arthritis No Endocrine Medical History Hx Diabetes No Hx Thyroid Disease Yes: hypothyroid Hematologic Medical History Hx of Blood Transfusion Yes Hx of Transfusion in last 3 Months No Ever experience any problems with No transfusion(s)? Hx of Preganancy in last 3 Months N/A Nurse Filling Out Transfusion AND MPROKOP Questions: Date: 12/15/17 Time: 00:45 Psycho/Social Medical History Hx Depression No Hx Anxiety No Hx Behavior Disorder No Hx Alcohol Use Yes: rare Hx Substance Use No Other Medical History Hx Blood Disorders Yes Hx Anemia Yes Hx Cancer No Hx Drug Resistant Organism No Wound/Pressure Injury Present on Arrival No /Admission Query Text:If yes, chart assessment in Shift/Clinical Findings Central Line/PICC/VAD Present on Arrival No /Admission Risk for Readmission Number of Risk Factors 6 At Risk for Readmission Patient is At Risk For Readmission Patient is eligible for Call Back Y Past Medical History (Last Reviewed 11/16/17 @ 08:36 by Suzanne Ferris) Acute CVA (cerebrovascular accident) (Acute 10/27/17) 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) [facility] current use of 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 (Chronic) Atrial fibrillation (Acute) Sinus bradycardia (Acute) Presence of permanent cardiac pacemaker (Chronic 05/13/17) Mitral valve insufficiency and aortic valve insufficiency (Chronic) Sick sinus syndrome (Chronic) SOB (shortness of breath) (Acute) Aortic stenosis (Chronic) 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, type I (Acute) Premature ventricular contraction (Acute) Abnormal EKG (Acute) Hyperlipidemia (Chronic) Ventricular hypertrophy (Chronic) Bruit of left carotid artery (Acute) Anemia, iron deficiency (Acute) Hypothyroidism (Acute) Retinal embolus (Acute) Tobacco abuse (Acute) Past Surgical History (Last Reviewed 11/16/17 @ 08:36 by Suzanne Ferris) S/P aortic valve replacement (Chronic 05/07/17) History of carpal tunnel surgery (Resolved) History of gastric bypass (Resolved) History of knee surgery (Resolved) Maternal Family History: Family History (Last Reviewed 11/16/17 @ 08:36 by Suzanne Ferris) Father CAD (coronary artery disease) Mother CAD (coronary artery disease) Thyroid disorder Sister Thyroid cancer Family History: No pertinent history - Social History Smoking Status: Current some day smoker Allergies/Adverse Reactions: Allergy/AdvReac Type Severity Reaction Status Date / Time Penicillins Allergy Hives Verified 12/14/17 21:35 Review of Systems Constitutional:: Reports: Fatigue. Denies: Fever, Sweats, Weight loss, Appetite change, Chills Cardiovascular:: Reports: Dyspnea on exertion. Denies: Chest pain, Palpitations, Orthopnea, PND, Shortness of breath Respiratory: Denies: Cough, Hemoptysis, Wheezing Gastrointestinal:: Denies: Abdominal pain, Nausea, Vomiting, Diarrhea, Constipation, Melena, Hematochezia Genitourinary: Denies: Dysuria, Hematuria, Urinary frequency, Nocturia, Flank pain Musculoskeletal:: Denies: Back pain, Myalgia, Arthralgia Skin: Denies: Rash, Skin Changes, Wounds Neurological:: Denies: Headache, Dizziness, Numbness, Tingling, Visual changes, Tinnitus, Hearing loss Psychiatric: Denies: Anxiety, Depression, Homicidal Ideations, Suicidal Ideations Vital Signs Height 6 ft 4 in - Physical Exam General: Alert, Oriented x3, No apparent distress HEENT: Atraumatic, Normocephalic Oropharynx:: Negative for: Dry mucosa, Ulcerated lesions Neck:: Supple, Trachea midline. Negative for: JVD, bilateral Cardiac:: Regular rate, Regular rhythm, Normal S1, Normal S2 Lungs: Clear to auscultation, Excusion symmetrical. Negative for: Rhonchi, Wheezes Abdomen:: Bowel sounds x 4, Soft, Non-tender, Non-distended, - - herring cath in place, draining tea colored urine with visable sentiment. Negative for: Hepatosplenomegaly Extremities:: Negative for: Cyanosis, Edema Neurological: Neuro grossly intact Skin:: Negative for: Lesions, Rash, Petechiae, Ecchymosis Psychiatric:: Appropriate affect, Euthymic Lymphatics:: Negative for: Cervical lymphadenopathy, Supraclavicular lymphadenopathy, Axillary lymphadenopathy Laboratory Data: Microbiology 12/16/17 05:00 Blood Culture - Final Blood Culture (Wb) - Right Hand No growth in 5 days. 12/16/17 05:00 Blood Culture - Final Laboratory Tests WBC 3.7 L (4.4-11.0) K/mm3 Diagnostic Data: Diagnostic Data Renal Ultrasound 12/15/17 09:28 IMPRESSION: 1. Normal ultrasound of the kidneys. 2. The urinary bladder is not visualized. 3. Incidental note of gallstones and mild pericholecystic fluid. The gallbladder is partially contracted, precluding accurate evaluation of mural thickness. Acute cholecystitis is not excluded by this study, however. 4. Fatty infiltration of the liver. Electronically Signed: Christ Vela MD at 16:09 EDT , Service support , Chest X-Ray 12/16/17 09:16 IMPRESSION: Residual bibasilar infiltrates worse on the right side with the blunting of both costophrenic angles worse on the right side Electronically Signed: Yosvany Carlos MD at 11:10 EDT Tel [phone], Service support , Videofluoroscopic Swallow 12/17/17 13:30 IMPRESSION: Penetration and silent aspiration with ingestion of thin liquids. This improves with the chin tuck maneuver. The swallow study findings were discussed with the patient by the speech pathologist at the conclusion of the examination. Please see speech pathology report for more information and recommendations. Electronically Signed: Yosvany Carlos MD at 14:19 EDT Tel [phone], Service support , Biopsy CT 12/18/17 10:30 IMPRESSION: Successful CT guided percutaneous kidney biopsy. Conscious sedation protocol was followed. Electronically Signed: Yosvany Carlos MD at 12:38 EDT Tel [phone], Service support , Assessment and Plan 1. Acute on chronic anemia - PMH positive for several incidences of upper GI bleed and iron deficiency associated with malabsorption r/t gastric bypass as well as B12 deficiency. Stool positive for occult blood. Status post 5 units PRBCs. Continue PPI twice daily. EGD under the care of Dr. Sanabria on 12/18/2017 did not identify a source of bleeding. Scheduled for colonoscopy later today. Globulin level elevated, hypoalbuminemia present. Corrected calcium 9.22. Differentials include a plasma cell dyscrasia. Orders placed for serum protein electrophoresis with immunofixation, serum free light chain assay, urine immunofixation electrophoresis and bone marrow biopsy with cytogenetics, flow cytometry and FISH myeloma and MDS panels. In the event SPEP returns showing no evidence of presence of M protein, will omit FISH myeloma panel on path order. 2. Pancytopenia-as evidenced by platelet count of 83,000 and WBC 3.7. S/p platelet transfusion X2. Orders placed for MDS panel on BMBX specimen. 3. Acute kidney injury, unclear etiology- Right renal biopsy 12/18/17. Pathology pending. Nephrology involved. Case discussed with Dr. Rizvi who was in agreement with the aforementioned plan. Case also discussed with primary team, Dr. Raines and DIEUDONNE Drummond. Vera Stanton, MSN, POWER LINE INSTALLER-C, AOCNP Primary Care Provider: Gracy Cuellar DO Referring Provider: - Problem List (1) ARF (acute renal failure) Status: Acute Qualifiers: Acute renal failure type: unspecified Qualified Code(s): N17.9 - Acute kidney failure, unspecified (2) Acute on chronic anemia Status: Acute (3) Hyperglobulinemia Status: Acute (4) Pancytopenia Status: Acute 12/21/17 1617 <Electronically signed by Vera ENCISOC> Date Vera ENCISOC Cosigner Signature (if applicable): Date CC: Shantal Palmer DO; Sandie Sanabria MD; Surjit Rizvi MD; Gracy Cuellar DO Signed OPERATIVE REPORT Observed: 12/21/2017 Status: F Source: [place] 3:41 PM [facility] REPOSITORY [facility] Medical Records Department [address] [place] [address] Operative Report 12/21/17 1257 MR#: [id number] Acct: [id number] Name: FRANK RIVERA Rep #: [id number] : 1955 62 From: Sandie Sanabria MD PCP: Gracy Cuellar DO Status: ADM IN Location: [place] [address] Report of Operation Date of Procedure: 12/18/17 Pre-Operative Diagnosis: anemia, rule out GI bleed Post-Operative Diagnosis: normal colonoscopy Surgery/Procedure Performed:: colonoscopy Description of Surgical Findings:: no stigmata of bleeding noted, normal colon habilitation assistant: NOT,DEFINED Type of Anesthesia:: MAC Anesthesiologist: Rohit Arambula Specimen's removed: none Estimated Blood Loss (mL): none Fluids Replaced: see anesthesia note Description of Procedure: After informed consent was given, the patient was brought to the endoscopy suite. Appropriate time out protocol was followed. He was then placed in the supine position. Appropriate cardiac, blood pressure, and pulse oximetry monitoring was placed. After stable vital signs were noted, the patient was given intravenous conscious sedation. The patient was then placed in the left lateral decubitis position. The colonoscope was lubricated and carefully inserted into the patient s anus. It was then advanced into the rectum, then into the sigmoid colon, then into the left descending colon, past the splenic flexure, into the transverse colon, past the hepatic flexure, then down into the right descending colon and into the cecum. The cecum was identified by: transillumination, confluence of the tenae coli, identification of the ileocecal valve and appendiceal orifice, and external pressure with indentation. At this point, the colonoscope was slowly retracted back and the entire colonic mucosa was examined. There was no evidence of extrinsic compression and no inflammatory changes were noted. No stigmata of bleeding was noted in the entire colon. No intraluminal obstructing lesions, no strictures, and no ulcers were noted. The colon cleansing preparation was good. Retroflex view in the rectum revealed no lesions in the rectal vault except for hemorrhoids. The colonoscope was removed intact. Patient tolerated procedure well. - Complications none noted 12/21/17 1541 <Electronically signed by Sandie Sanabria MD> Date Sandie Sanabria MD CC: Shantal Palmer DO; Sandie Sanabria MD; Surjit Rizvi MD; Gracy Cuellar DO Signed GI BLEED SCAN Observed: 12/21/2017 Status: F Source: [place] 2:14 PM [facility] REPOSITORY [facility] Imaging Services [address] [place] [address] GI Bleed Scan MR#: [id number] Acct: [id number] Name: FRANK RIVERA Rep #: [id number] : 1955 M 62 From: Eliseo Santana DO PCP: Gracy Cuellar DO Status: ADM IN Study: GI Bleed Scan Date of Exam: 12/22/17 Exam# [id number] Ordering Dr: Neida Fischer CLINICAL: 62-year-old male with reported history of aspirin intestinal hemorrhage. LABELED BLOOD POOL GASTROINTESTINAL BLEEDING STUDY COMPARISON: None available FINDINGS: Following the intravenous administration of 25.8 mCi of 99m Tc Ultratag labeled RBCs, image acquisitions of the anterior-abdomen and pelvis for a total of 60 minutes reveal: 1. Static sequential sixty individual 1 minute acquisitions of the anterior abdomen and pelvis demonstrate no evidence of abnormal increased radiopharmaceutical concentration indicative of acute gastrointestinal hemorrhage. 2. Physiologic distribution of the radiopharmaceutical is demonstrated in the hepatic, splenic, cardiac and major vascular blood pool. There is visualization of the external genitalia. NM/GI Bleed Scan IMPRESSION: 1. NEGATIVE 99m Tc ULTRATAG LABELED BLOOD POOL GASTROINTESTINAL BLEEDING EXAMINATION. 2. There is no definitive typical scintigraphic evidence of acute gastrointestinal hemorrhage on the current evaluation. Electronically Signed: Eliseo Santana DO at 10:44 EDT Tel , Service support , CC: FAYE Fischer; Gracy Cuellar DO; Loki Raines MD Loss Prevention Operations Manager: Signed BIOPSY/INJ OR NEEDLE Observed: 12/21/2017 Status: F Source: [place] 11:21 AM [facility] REPOSITORY [facility] Imaging Services [address] [place] [address] Biopsy/Inj or Needle Placement MR#: [id number] Acct: [id number] Name: FRANK RIVERA Rep #: [id number] : 1955 M 62 From: Yosvany Carlos MD PCP: Gracy Cuellar DO Status: ADM IN Study: Biopsy/Inj or Needle Placement Date of Exam: 12/22/17 Exam# [id number] Ordering Dr: Vera Stanton PROCEDURE: CT GUIDED BONE marrow biopsy of the left iliac bone. DATE: December 22, 2017. INDICATION: Male, 62 years old. Possible multiple myeloma. PHYSICIAN: Yosvany Carlos M.D. RADIATION DOSAGE (If Supplied By Facility): CTDIvol = ( 18 ) mGy, DLP = ( 318.27 ) mGycm. Individualized dose optimization techniques were utilized. PROCEDURE: The risks, benefits, and alternatives to the procedure were explained to the patient. The specific risk of hemorrhage requiring further treatment or intervention was detailed and accepted. Follow-up instructions were discussed with the patient as well. Written informed consent was obtained. The patient was brought into the CT suite and placed in the right side down decubitus position.. . An appropriate entry site was identified. The overlying skin was prepped and draped in the usual sterile fashion. 1% lidocaine was administered subcutaneously for local anesthesia. Conscious sedation was performed. The patient received 2 mg of Versed and 50 mcg of fentanyl intravenously. Conscious sedation was started at 10:18 AM and terminated at 10:48 AM. The patient was independently monitored by the department nurse. Under CT guidance, a bone marrow aspiration and biopsy of the left iliac bone was performed. The specimens were then placed in the appropriate fluid and transported to the laboratory for analysis. Hemostasis was obtained. The patient tolerated the procedure well without immediate complications. CT/Biopsy/Inj or Needle Placement IMPRESSION: Successful CT guided bone marrow biopsy and aspirate of the posterior aspect of the left iliac bone., as described above. Electronically Signed: Yosvany Carlos MD at 11:30 EDT Tel [phone], Service support , CC: Gracy Stanton NP Loss Prevention Operations Manager: Signed CBC-COMPLETE BLOOD CNT Collected: 12/21/2017 Status: F Source: LUX NO DIFF 5:32 AM [facility] REPOSITORY TYPE CODE TESTS RESULT OUT OF RANGE REFERENCE UNITS LAB L100.1000 4.4-11.0 K/mm3 Low WBC 3.7 LAB L100.1200 4.6-6.2 M/mm3 Low RBC 2.65 LAB L100.1300 13.0-16.5 g/dl Low HGB 8.3 LAB L100.1400 40-54 % Low HCT 26.4 LAB L100.1500 80-94 fL High MCV 99.6 LAB L100.1600 27.0-32.0 pg Normal MCH 31.3 LAB L100.1700 32-36 g/gl Low MCHC 31.4 LAB L100.1810 11.6-14.6 % High RDW CV 20.8 LAB L100.1820 35.1-43.9 fl High RDW SD 72.8 LAB L100.1900 150-450 K/mm3 Low PLT 83 LAB L100.2000 6.2-12.0 fl Normal MPV 10.6 Performed By: #### L100.0500, L100.4500 #### [facility] [address] [place], [place], [id number] DIFFERENTIAL COMMENT Collected: 12/21/2017 Status: F Source: [place] 5:32 AM [facility] REPOSITORY TYPE CODE TESTS RESULT OUT OF RANGE REFERENCE UNITS LAB L100.4500 Normal SMEAR COMMENT SCANNED Result Comment: 2+ MICROCYTOSIS 2+ ANISOCYTOSIS Performed By: #### L100.0500, L100.4500 #### [facility] [address] [place], [address] RENAL PROFILE Collected: 12/21/2017 Status: F Source: [place] 5:32 AM [facility] REPOSITORY TYPE CODE TESTS RESULT OUT OF RANGE REFERENCE UNITS LAB L501.0100 74-106 mg/dL Normal GLU 80 Result Comment: Please note revised GLUCOSE reference range effective 2017. LAB L501.1000 7-18 mg/dL High BUN 62 LAB L501.1100 0.70-1.30 mg/dL High CREAT,SERUM 3.45 Result Comment: The validity of the calculated GFR AND GFRAA in patients over 70 years has not been determined. Clinical correlation is essential. LAB L501.1110 >60 mL/min Low EST GFR 19 Result Comment: Non- GFR Calc LAB L501.1115 >60 mL/min Low EST GFR - AA 23 Result Comment: GFR Calc LAB L501.1255 ml/min Normal Estimated CRCL 27.61 LAB L501.1300 10-20 RATIO Normal BUN/CRE 18.0 LAB L501.1800 3.2-5. g/dL Low 0 ALB 1.9 LAB L501.2200 8.5-10 mg/dL Low .1 CA 7.7 LAB L501.2300 2.5-4. mg/dL Normal 9 PHOS 3.8 LAB L501.5300 136-14 mmol/L Normal 5 NA 140 LAB L501.5600 3.5-5. mmol/L High 1 K 5.5 LAB L501.5900 98-107 mmol/L High CL 117 LAB L501.6100 21.0-3 mmol/L Low 2.0 CO2 18.0 Performed By: #### L500.3600 #### [facility] [address] [facility] [place], [place], [address] PROTHROMBIN TIME W/INR Collected: 12/21/2017 Status: F Source: [place] 5:32 AM [facility] REPOSITORY TYPE CODE TESTS RESULT OUT OF RANGE REFERENCE UNITS LAB L300.4150 11.7-14.9 SECONDS High PROTIME 18.6 LAB L300.4200 Normal INR 1.6 Performed By: #### L300.3900 #### [facility] [address] [facility] [place], [address] RETIC PANEL Collected: 12/21/2017 Status: F Source: [place] 5:32 AM [facility] REPOSITORY Order Comment: Comments: add to CBC TYPE CODE TESTS RESULT OUT OF RANGE REFERENCE UNITS LAB L101.0000 0.5-1.5 % Normal RETIC 1.25 LAB L101.0060 3.00-15.90 % IM Normal RET FRACTION 3.90 LAB L101.0090 30-35 pg Normal RET-HE 31.4 LAB L101.0110 1.0-7.9 % Normal IPF 4.1 Result Comment: Low PLT + Low IPF suggest a bone marrow production disorder Low PLT + high IPF suggests peripheral destruction (e.g.ITP, TTP, HIT, DIC, autoimmune) or bone marrow recovery Trending of serial IPF measurements is recommended when evaluating for bone marrow respones Value above normal range indicates an increase in RBC cellular response from bone marrow. Performed By: #### L100.9950 #### [facility] [address] [place], [place], [id number] CBC-COMPLETE BLOOD CNT Collected: 12/20/2017 Status: F Source: [place] NO DIFF 5:30 AM [facility] REPOSITORY TYPE CODE TESTS RESULT OUT OF RANGE REFERENCE UNITS LAB L100.1000 4.4-11.0 K/mm3 Low WBC 3.8 LAB L100.1200 4.6-6.2 M/mm3 Low RBC 2.84 LAB L100.1300 13.0-16.5 g/dl Low HGB 8.9 LAB L100.1400 40-54 % Low HCT 28.3 LAB L100.1500 80-94 fL High MCV 99.6 LAB L100.1600 27.0-32.0 pg Normal MCH 31.3 LAB L100.1700 32-36 g/gl Low MCHC 31.4 LAB L100.1810 11.6-14.6 % High RDW CV 21.4 LAB L100.1820 35.1-43.9 fl High RDW SD 74.0 LAB L100.1900 150-450 K/mm3 Low PLT 85 LAB L100.2000 6.2-12.0 fl Normal MPV 10.0 Performed By: #### L100.0500, L100.4500 #### [facility] [address] [place], [place], [id number] DIFFERENTIAL COMMENT Collected: 12/20/2017 Status: F Source: LUX 5:30 AM [facility] REPOSITORY TYPE CODE TESTS RESULT OUT OF RANGE REFERENCE UNITS LAB L100.4500 Normal SMEAR COMMENT SCAN Result Comment: ANISOCYTOSIS 1+ HYPOCHROMIA 1+ MICROCYTOSIS 1+ POLYCHROMASIA 1+ Performed By: #### L100.0500, L100.4500 #### [facility] [address] [place], [place], [id number] RENAL PROFILE Collected: 12/20/2017 Status: F Source: L[place] 5:30 AM [facility] REPOSITORY TYPE CODE TESTS RESULT OUT OF RANGE REFERENCE UNITS LAB L501.0100 74-106 mg/dL Normal GLU 82 Result Comment: Please note revised GLUCOSE reference range effective 2017. LAB L501.1000 7-18 mg/dL High BUN 61 LAB L501.1100 0.70-1.30 mg/dL High CREAT,SERUM 3.72 Result Comment: The validity of the calculated GFR AND GFRAA in patients over 70 years has not been determined. Clinical correlation is essential. LAB L501.1110 >60 mL/min Low EST GFR 18 Result Comment: Non- GFR Calc LAB L501.1115 >60 mL/min Low EST GFR - AA 21 Result Comment: GFR Calc LAB L501.1255 ml/min Normal Estimated CRCL 25.60 LAB L501.1300 10-20 RATIO Normal BUN/CRE 16.4 LAB L501.1800 3.2-5. g/dL Low 0 ALB 2.0 LAB L501.2200 8.5-10 mg/dL Low .1 CA 7.6 LAB L501.2300 2.5-4. mg/dL Normal 9 PHOS 3.5 LAB L501.5300 136-14 mmol/L Normal 5 NA 138 LAB L501.5600 3.5-5. mmol/L High 1 K 5.3 LAB L501.5900 98-107 mmol/L High CL 116 LAB L501.6100 21.0-3 mmol/L Low 2.0 CO2 19.0 Performed By: #### L500.3600 #### [facility] [address] [place], [address] LIS + PROTEIN ELECT, Collected: 12/20/2017 Status: F Source: [place] SERUM 5:30 AM [facility] REPOSITORY Order Comment: Is Patient Fasting? N TYPE CODE TESTS RESULT OUT OF RANGE REFERENCE UNITS LAB L3100.3500 6.0-8.5 g/dL Normal PROTEIN,TOTAL 7.0 LAB L3200.8588 910-9747 mg/dL High IMMUNO G 3273 LAB L3200.1400 61-437 mg/dL Normal IMMUNO A 349 LAB L3200.1500 20-172 mg/dL Normal IMMUNOGL M 159 LAB L3200.1510 2.9-4.4 g/dL Low ALBUMIN 2.4 LAB L3200.1520 0.0-0.4 g/dL Normal DILYF-9-WHRF 0.2 LAB L3200.1530 0.4-1.0 g/dL Normal STYLB-9-CGNQ 0.5 LAB L3200.1540 0.7-1.3 g/dL Normal BETA GLOBULIN 0.7 LAB L3200.1550 0.4-1.8 g/dL High GAMMA GLOBULIN 3.2 LAB L3200.1560 Normal M-SPIKE Result Comment: NOT OBSERVED LAB L3200.1570 2.2-3.9 g/dL High GLOBULIN, TOTAL 4.6 LAB L3200.1580 0.7-1.7 Low A/G RATIO 0.6 LAB L3200.1590 . LIS Normal RESULT,S Comment: Result Comment: Presence of monoclonal protein is unclear at this time. Suggest repeat in 3 to 6 months if clinically indicated. LAB L3200.1594 . Normal NOTE: Comment Result Comment: Protein electrophoresis scan will follow via computer, mail, or publicity director delivery. Performed By: #### L3100.3425, L3100.5700, L3100.5800, L3130.0010 #### [facility] (refer to report for specific site) refer to report for address and phone number COMPLEMENT C3 Collected: 12/20/2017 Status: F Source: [place] 5:30 AM [facility] REPOSITORY Order Comment: Is Patient Fasting? N TYPE CODE TESTS RESULT OUT OF RANGE REFERENCE UNITS LAB L3100.5700 82-167 mg/dL Low COMP C3 64 Result Comment: Performed at: [facility] [id number] Truck Driving Instructor: Kaiden Warner PhD, Phone: [phone] Performed By: #### L3100.3425, L3100.5700, L3100.5800, L3130.0010 #### [facility] (refer to report for specific site) refer to report for address and phone number COMPLEMENT C4 Collected: 12/20/2017 Status: F Source: LUX 5:30 AM [facility] REPOSITORY Order Comment: Is Patient Fasting? N TYPE CODE TESTS RESULT OUT OF RANGE REFERENCE UNITS LAB L3100.5800 14-44 mg/dL Normal COMP C4 17 Performed By: #### L3100.3425, L3100.5700, L3100.5800, L3130.0010 #### [facility] (refer to report for specific site) refer to report for address and phone number KAPPA LAMBDA LIGHT Collected: 12/20/2017 Status: F Source: [facility] 5:30 AM [facility] REPOSITORY Order Comment: Is Patient Fasting? N TYPE CODE TESTS RESULT OUT OF RANGE REFERENCE UNITS LAB L3130.0200 3.3-19.4 mg/L High FR KAPPA LT 402.7 CHN LAB L3130.0300 5.7-26.3 mg/L High FR LAMBDA LT 378.8 CH LAB L3130.0400 0.26-1.65 Normal KAPPA/LAMBDA 1.06 % Performed By: #### L3100.3425, L3100.5700, L3100.5800, L3130.0010 #### [facility] (refer to report for specific site) refer to report for address and phone number LIVER PROFILE Collected: 12/19/2017 Status: F Source: [place] 8:45 AM [facility] REPOSITORY TYPE CODE TESTS RESULT OUT OF RANGE REFERENCE UNITS LAB L501.1500 6.4-8.2 g/dL Normal T PROT 7.3 LAB L501.1800 3.2-5.0 g/dL Low ALB 2.1 LAB L501.1950 2.2-4.2 g/dL High GLOB 5.2 LAB L501.4100 15-37 U/L High AST 57 LAB L501.4305 45-117 U/L High ALK P 228 LAB L501.4405 16-61 U/L Normal ALT 41 LAB L501.4600 0.20-1.00 mg/dL Normal T BILI 0.80 LAB L501.4700 0.00-0.30 mg/dL High D BILI 0.43 Performed By: #### L500.3400 #### [facility] [address] [place], [address] FIBRINOGEN Collected: 12/19/2017 Status: F Source: [place] 8:45 AM [facility] REPOSITORY TYPE CODE TESTS RESULT OUT OF RANGE REFERENCE UNITS LAB L300.4700 203-444 mg/dl Normal FIB 215 Performed By: #### L300.4700 #### [facility] [address] [place], [address] DIRECT ANTIGLOBULIN Collected: 12/19/2017 Status: F Source: LUX PETAR FELICIA 8:45 AM [facility] REPOSITORY TYPE CODE TESTS RESULT OUT OF RANGE REFERENCE UNITS LAB B100.6950 NEGATIVE Normal DIRECT NEG PETAR= w/POLYSPECIF IC Performed By: #### B100.6650 #### [facility] [address] [place], [address] CBC-COMPLETE BLOOD CNT Collected: 12/19/2017 Status: F Source: LUX NO DIFF 6:47 AM [facility] REPOSITORY TYPE CODE TESTS RESULT OUT OF RANGE REFERENCE UNITS LAB L100.1000 4.4-11.0 K/mm3 Low WBC 3.7 LAB L100.1200 4.6-6.2 M/mm3 Low RBC 2.78 LAB L100.1300 13.0-16.5 g/dl Low HGB 8.7 LAB L100.1400 40-54 % Low HCT 27.4 LAB L100.1500 80-94 fL High MCV 98.6 LAB L100.1600 27.0-32.0 pg Normal MCH 31.3 LAB L100.1700 32-36 g/gl Low MCHC 31.8 LAB L100.1810 11.6-14.6 % High RDW CV 21.8 LAB L100.1820 35.1-43.9 fl High RDW SD 75.0 LAB L100.1900 150-450 K/mm3 Low PLT 94 LAB L100.2000 6.2-12.0 fl Normal MPV 10.2 Performed By: #### L100.0500, L100.4500 #### [facility] [address] [place], [place], [id number] DIFFERENTIAL COMMENT Collected: 12/19/2017 Status: F Source: LUX 6:47 AM [facility] REPOSITORY TYPE CODE TESTS RESULT OUT OF RANGE REFERENCE UNITS LAB L100.4500 Normal SMEAR COMMENT Result Comment: ANISOCYTOSIS 2+ Performed By: #### L100.0500, L100.4500 #### [facility] [address] [place], [address] BASIC METABOLIC Collected: 12/19/2017 Status: F Source: LUX PROFILE (BMP) 6:47 AM [facility] REPOSITORY TYPE CODE TESTS RESULT OUT OF RANGE REFERENCE UNITS LAB L501.0100 74-106 mg/dL Normal GLU 82 Result Comment: Please note revised GLUCOSE reference range effective 2017. LAB L501.1000 7-18 mg/dL High BUN 64 LAB L501.1100 0.70-1.30 mg/dL High CREAT,SERUM 3.75 Result Comment: The validity of the calculated GFR AND GFRAA in patients over 70 years has not been determined. Clinical correlation is essential. LAB L501.1110 >60 mL/min Low EST GFR 18 Result Comment: Non- GFR Calc LAB L501.1115 >60 mL/min Low EST GFR - AA 21 Result Comment: GFR Calc LAB L501.1255 ml/min Normal Estimated CRCL 25.40 LAB L501.1300 10-20 RATIO Normal BUN/CRE 17.1 LAB L501.2200 8.5-10 mg/dL Low .1 CA 7.7 LAB L501.5300 136-14 mmol/L Normal 5 NA 142 LAB L501.5600 3.5-5. mmol/L High 1 K 5.3 LAB L501.5900 98-107 mmol/L High CL 118 LAB L501.6100 21.0-3 mmol/L Low 2.0 CO2 19.0 LAB L501.6200 5-15 Normal GAP 5 Performed By: #### L500.2500 #### [facility] [address] [place], [address] BILIRUBIN,TOTAL DIR,IND Collected: 12/19/2017 Status: F Source: LUX 6:47 AM [facility] REPOSITORY Order Comment: Serial Specimen #1, #2 or #3? 1 TYPE CODE TESTS RESULT OUT OF RANGE REFERENCE UNITS LAB L501.4600 0.20-1.00 mg/dL Normal T BILI 0.70 LAB L501.4700 0.00-0.30 mg/dL High D BILI 0.41 LAB L501.4800 0.00-1.00 mg/dL Normal I BILI 0.30 Performed By: #### L501.0000, L504.2610 #### [facility] [address] [place], [address] LDH Collected: 12/19/2017 Status: F Source: LUX 6:47 AM [facility] REPOSITORY Order Comment: Serial Specimen #1, #2 or #3? 1 TYPE CODE TESTS RESULT OUT OF RANGE REFERENCE UNITS LAB L504.2610 87-241 U/L High LDH 355 Performed By: #### L501.0000, L504.2610 #### [facility] [address] [facility] [place], [address] OPERATIVE REPORT - Observed: 12/18/2017 Status: F Source: LUX ENDOSCOPY 1:15 PM [facility] REPOSITORY [facility] Medical Records Department [address] [facility] [place] [address] Operative Report - Endoscopy MR#: [id number] Acct: [id number] Name: FRANK RIVERA Rep #: [id number] : 1955 62 From: Sandie Sanabria MD PCP: Gracy Cuellar DO Status: ADM IN Patient Name: Frank Rivera Procedure Date: 12/18/2017 12:07 PM Date of : 1955 Age: 62 Procedure: Upper GI endoscopy Indications: Iron deficiency anemia Providers: Sandie Sanabria MD Medicines: See the Anesthesia note for documentation of the administered medications Patient Profile: Refer to note in patient chart for documentation of history and physical. Complications: No immediate complications. Procedure: Pre-Anesthesia Assessment: - Prior to the procedure, a History and Physical was performed, and patient medications and allergies were reviewed. The patient's tolerance of previous anesthesia was also reviewed. The risks and benefits of the procedure and the sedation options and risks were discussed with the patient. All questions were answered, and informed consent was obtained. Prior Anticoagulants: The patient has taken no previous 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 or antiplatelet agents. ASA Grade Assessment: III - A patient with severe systemic disease. After reviewing the risks and benefits, the patient was deemed in satisfactory condition to undergo the procedure. After obtaining informed consent, the endoscope was passed under direct vision. Throughout the procedure, the patient's blood pressure, pulse, and oxygen saturations were monitored continuously. The gastroscope was introduced through the mouth, and advanced to the min en y limb. The upper GI endoscopy was accomplished without difficulty. The patient tolerated the procedure well. Scope In: 12:32:37 PM Scope Out: 12:38:08 PM Total Procedure Duration Time 0 hours 5 minutes 31 seconds Findings: The examined esophagus was normal. The entire examined stomach was normal. The examined jejunum was normal. Impression: - Normal esophagus. - Normal stomach- pouch - Normal examined jejunum -segment of Min en Y limb. - No specimens collected. Recommendation: - The findings and recommendations were discussed with the referring physician. - Continue 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 after clearance with colonoscopy tomorrow at prior dose. Procedure Code(s): --- Professional --- 37653, Esophagogastroduodenoscopy, flexible, transoral; diagnostic, including collection of specimen(s) by brushing or washing, when performed (separate procedure) Diagnosis Code(s): --- Professional --- D50.9, Iron deficiency anemia, unspecified CPT copyright 2017 [employer]. All rights reserved. 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 MD Sandie Chacon MD 12/18/2017 1:14:36 PM This report has been signed electronically. Number of Addenda: 0 Note Initiated On: 12/18/2017 12:07 PM 12/18/17 1314 Date Sandie Sanabria MD Cosigner Signature: Date (if indicated) CC: Gracy Cuellar DO; Gracy Danielson DO Date Dictated: 12/18/17 1207 Date Transcribed: Loss Prevention Operations Manager: LENY Signed OPERATIVE REPORT Observed: 12/18/2017 Status: F Source: [place] 1:02 PM [facility] REPOSITORY [facility] Medical Records Department [address] [place] [address] [place] [address] Operative Report 12/18/17 1250 MR#: [id number] Acct: [id number] Name: FRANK RIVERA Rep #: [id number] : 1955 62 From: Sandie Sanabria MD PCP: Gracy Cuellar DO Status: ADM IN Y Location: [facility] – [place]-8 Report of Operation Date of Procedure: 12/18/17 Pre-Operative Diagnosis: anemia, rule out GI bleed Post-Operative Diagnosis: normal upper endoscopy Surgery/Procedure Performed:: esophagogastroduodenoscopy Description of Surgical Findings:: normal esophagus, small stomach pouch - normal after bariatric surgery, anastomosis intact - no ulcers lesions seen, no stigmata of bleeding Type of Anesthesia:: MAC Anesthesiologist: Keith Valdes Specimen's removed: none Estimated Blood Loss (mL): none Fluids Replaced: see anesthesia note Description of Procedure: After informed consent was given, the patient was brought to the endoscopy suite. Appropriate time out protocol was followed. Appropriate cardiac, blood pressure, and pulse oximetry monitoring was placed. After stable vital signs were noted, the patient was given intravenous conscious sedation. The patient was then placed in the left lateral decubitis position. The upper endoscope was lubricated and inserted into the patient s mouth and then carefully placed into the patient s throat. The patient was asked to swallow and the endoscope was then easily advanced into the patient s esophagus. The endoscope was further advanced down into the patient s stomach which was a small pouch consistent with s/p bariatric surgery. The small bowel anastomosis was noted - it was intact, and there was no evidence of any ulcers. No stigmata of bleeding was noted. There was no blood seen. The endoscope was advanced about 15 cm into the small bowel limb - no lesions were noted. The stomach pouch was carefully examined, no evidence of bleeding was noted, no ulcers/masses were noted. The endoscope was retracted back into the esophagus, where any insufflated gas in the stomach was aspirated out for fear of reflux/aspiration. The gastroesophageal junction appeared grossly normal, the remainder of the esophagus was normal. The upper endoscope was removed intact. Patient tolerated procedure well. - Complications none noted 12/18/17 1302 <Electronically signed by Sandie Sanabria MD> Date Sandie Sanabria MD CC: Shantal Palmer DO; Sandie Sanabria MD; Gracy Cuellar DO Signed ABO RH BLOOD TYPE, Collected: 12/18/2017 Status: F Source: [place] PATIENT 7:25 AM [facility] REPOSITORY Order Comment: CMV NEG? N Give When? WHEN READY Irradiated? N TYPE CODE TESTS RESULT OUT OF RANGE REFERENCE UNITS LAB B10.0800 Test Normal BLOOD not performed TYPE GEL Performed By: #### B10.0010 #### [facility] [address] [place], [address] ABORH BLOOD TYPE, Collected: 12/18/2017 Status: F Source: [place] PATIENT 7:25 AM [facility] REPOSITORY TYPE CODE TESTS RESULT OUT OF RANGE REFERENCE UNITS LAB B100.1300 A Normal BLOOD POSITIVE TYPE PT Performed By: #### B100.0000 #### [facility] [address] [place], [address] PPHR Collected: 12/18/2017 Status: F Source: [place] 7:25 AM [facility] REPOSITORY TYPE CODE TESTS RESULT OUT OF REFERENCE UNITS RANGE LAB U100.0700 [id number] TRANSFUSED PRODUCT: Platelets Apheresis PPHR LR SD COUNT: 1 Performed By: #### U100.0700 #### [facility] - refer to report for specific site ANTIBODY SCREEN Collected: 12/18/2017 Status: F Source: [place] 7:15 AM [facility] REPOSITORY Order Comment: CMV NEG? N Number of units to transfuse: 2 Is the EBL >/= 1000ml in adults or >/= 12ml/kg in children? Y Reason for Ordering Blood: Acute Are the blood/blood products to be transfused? Y Is the patient having/had surgery? N CMV NEG?* N Give When? When Ready Irradiated? N Leukodepleted? Y Reason for Type AND Screen/Red Cells: ROUTINE TYPE CODE TESTS RESULT OUT OF RANGE REFERENCE UNITS LAB B100.4000 Normal Antibody NEGATIVE Screen Performed By: #### B100.4000 #### [facility] [address] [place], [address] RC Collected: 12/18/2017 Status: F Source: [place] 7:15 AM [facility] REPOSITORY TYPE CODE TESTS RESULT OUT OF REFERENCE UNITS RANGE LAB U100.0000 [id number] TRANSFUSED PRODUCT: T AND S with Crossmatch, Red Cells COUNT: 2 Performed By: #### U100.0000 #### [facility] - refer to report for specific site PROTHROMBIN TIME W/INR Collected: 12/18/2017 Status: F Source: [place] 5:50 AM [facility] REPOSITORY TYPE CODE TESTS RESULT OUT OF RANGE REFERENCE UNITS LAB L300.4150 11.7-14.9 SECONDS High PROTIME 17.2 LAB L300.4200 Normal INR 1.4 Performed By: #### L300.3900, L300.4310 #### [facility] [address] [place], [place], [id number] PARTIAL THROMBOPLAST Collected: 12/18/2017 Status: F Source: [place] TIME 5:50 AM [facility] REPOSITORY TYPE CODE TESTS RESULT OUT OF REFERENCE UNITS RANGE LAB L300.4310 24.1-36.2 Seconds High PTT 47.9 Performed By: #### L300.3900, L300.4310 #### [facility] [address] [facility] [id number] RENAL PROFILE Collected: 12/18/2017 Status: F Source: [place] 5:50 AM [facility] REPOSITORY Order Comment: Comments: pre op TYPE CODE TESTS RESULT OUT OF RANGE REFERENCE UNITS LAB L501.0100 74-106 mg/dL Normal GLU 85 Result Comment: Please note revised GLUCOSE reference range effective 2017. LAB L501.1000 7-18 mg/dL High BUN 64 LAB L501.1100 0.70-1.30 mg/dL High CREAT,SERUM 3.87 Result Comment: The validity of the calculated GFR AND GFRAA in patients over 70 years has not been determined. Clinical correlation is essential. LAB L501.1110 >60 mL/min Low EST GFR 17 Result Comment: Non- GFR Calc LAB L501.1115 >60 mL/min Low EST GFR - AA 20 Result Comment: GFR Calc LAB L501.1255 ml/min Normal Estimated CRCL 24.61 LAB L501.1300 10-20 RATIO Normal BUN/CRE 16.5 LAB L501.1800 3.2-5. g/dL Low 0 ALB 2.0 LAB L501.2200 8.5-10 mg/dL Low .1 CA 7.7 LAB L501.2300 2.5-4. mg/dL Normal 9 PHOS 4.1 LAB L501.5300 136-14 mmol/L Normal 5 NA 141 LAB L501.5600 3.5-5. mmol/L High 1 K 5.3 LAB L501.5900 98-107 mmol/L High CL 117 LAB L501.6100 21.0-3 mmol/L Low 2.0 CO2 18.0 Performed By: #### L500.3600, L501.9520 #### [facility] [address] [facility] [place], [address] THYROID STIM HORMONE Collected: 12/18/2017 Status: F Source: [place] (TSH) 5:50 AM [facility] REPOSITORY Order Comment: Comments: pre op TYPE CODE TESTS RESULT OUT OF RANGE REFERENCE UNITS LAB 01.9520 0.358-3.74 uIU/mL Normal TSH 2.24 Performed By: #### L500.3600, L501.9520 #### [facility] [address] [place], [address] KIDNEY PARTIAL/TOTAL Observed: 12/18/2017 Status: F Source: [place] NEPHRECT 12:00 AM [facility] REPOSITORY Patient: FRANK RIVERA : 1955 (62/M) Acct Num: [id number] Phys: Gracy Danielson DO Unit Num: [id number] Loc: CT Specimen: [id number] Received: 12/18/17 - 5 Spec Type: KIDNEY TISSUES 1 TISSUES: Kidney, NOS COMMENT Additional history obtained from multiple conversations with Dr. Shantal Palmer: Patient with recent onset of renal failure. He was fine in October. Now with creatinine of 4. Proteinuria of 2.3 in 24 hours. History of Min-en-Y procedure, status post valve replacement, status post stroke. No evidence of renal stones. Platelets dropping. FATOU negative, ANCA negative, C3 low, C4 normal, kappa and lambda elevated, but no predominance. Taken together, the light, immunofluorescence and electron microscopy studies show a constellation of pathologic features. However, the findings do not fit neatly into a single diagnostic category, particularly when taking the clinical picture into account. Lupus nephritis is an entity which can often encapsulate a variety of pathologic findings, including the ones seen here, but by report, the patient does not meet the clinical criteria for systemic lupus erythematosus. The low platelets bring up the possibility of atypical hemolytic uremic syndrome (HUS); the pathologic findings are not completely incompatible, but there is a notable absence of thrombi, vascular wall expansion and reduplication of the glomerular basement membranes. Atypical HUS could explain the mesangiolysis, slight increase in mesangial cellularity and mild tubular injury. 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 However, in the biopsy, there is only a single crescent present out of an ample sampling of 28 total glomeruli. In RPGN, it would be expected that there would be more cellular crescents, more glomerular inflammation and perhaps fewer of the other pathologic findings described. The two nodular-appearing glomeruli also bring up some other diagnostic considerations. Given that the patient is not diabetic, dense deposit disease, burnt-out MPGN, amyloid or idiopathic causes would be on the differential. There is no electron-micrographic evidence of dense deposit disease, MPGN or amyloid. The immunofluorescence findings also deserve comment. It is somewhat unusual to have an IgM predominantly pattern along with C3. When weak, IgM and C3 may be attributed to background nonspecific staining; however, in this case, the staining is quite strong and is mirrored in the kappa and lambda light chains along with C1q, albeit at weaker levels in these other stains. IgM nephropathy is a controversial entity. In addition, there is an apparent disconnect between the immunofluorescence pattern and the electron microscopic findings. On ultrastructure, there are not as many electron- dense areas as would be expected from the immunofluorescence studies. It is possible that the immunofluorescence results are spurious or that the glomerulus imaged by electron microscopy is not entirely client representative of the disease process. The challenge with this case is that there is not only one piece of information that does not fit nicely into a clinic-pathologic diagnostic category. Rather, irrespective of what working diagnosis is selected, there are multiple pieces of information which are atypical for a given entity. Thus, the final diagnosis is descriptive. Clinical correlates is recommended and if new clinical information is obtained which would inform further interpretation of the pathological findings, I would be happy to revisit this case at that time. GROSS DESCRIPTION The specimen is sent entirely to [facility] for diagnosis. The case is received in one container labeled with the patient's name and medical record number, designated right kidney biopsy. The specimen consists of four cores of tissue measuring 2.0, 1.8, 1.7 and 1.7 cm in length. The tissue is divided and processed for light, immunofluorescence and electron microscopy studies. HEADER OPERATION: CT-guided kidney biopsy right side PRE-OP DIAGNOSIS: Renal failure, anemia TISSUE SUBMITTED: 18g core x4 right kidney MICROSCOPIC DESCRIPTION LIGHT MICROSCOPY: Sections show cores of renal parenchyma with approximately 28 glomeruli present, one of which is globally sclerotic. There is a single cellular crescent (best seen on PAS level 2). Three glomeruli show focal segmental mesangiolysis. Two glomeruli show vague nodularity. No segmental scars are appreciated. No definitive necrosis or thrombosis is identified. PAS , silver and trichrome stains highlight the aforementioned features, but do not show any evidence of glomerular basement membrane double contours, spikes or fuchsinophilic immune-type deposits. PAS highlights an increase in mesangial matrix material along with slight increase in mesangial cellularity. Frequent tubules contain red blood cell casts. Tubules also show some mild attenuation of the tubular epithelial cells and there are rare tubules with intratubular debris. Arteries show mild arteriosclerosis. Arterioles show mild arteriosclerosis. There is no fibrinoid necrosis of thrombi in the extra- glomerular vessels. A [place] Red stain for amyloid is negative. There is focal mild interstitial inflammation, composed predominantly of lymphocytes and plasma cells. IMMUNOFLUORESCENCE: The tissue submitted for immunofluorescence studies contain 8 glomeruli, 1 of which is globally sclerotic. All of the glomeruli show the same immunofluorescence pattern. There is 4+ granular glomerular staining for IgM and C3. There is similar, but weaker 1+ granular pattern of C1q, kappa and lambda staining. IgG and IgA show minimally increased staining above background. Albumin and fibrinogen show nonspecific staining. ELECTRON MICROSCOPY: The tissue submitted for electron microscopy studies contains a single glomerulus. Ultrastructural examination demonstrates that the glomerular capillary loops are partially compressed by an increase in mesangial matrix material. The glomerular capillary loops are of approximately normal caliber. The visceral epithelial foot processes show a mild increase in effacement, involving approximately 30-40% of the glomerular capillary loop surface area. The mesangium contains occasional poorly-defined electron-dense areas in the mesangium. There are no electron densities in the glomerular basement membranes. Tubules appear unremarkable. Arteries and arterioles are not well visualized. MICROSCOPIC DIAGNOSIS Kidney, needle biopsy: Glomeruli showing focal segmental mesangiolysis (3 of 28 glomeruli), vague nodularity (2 of 28 glomeruli) and a single cellular crescent (1 of 28 glomeruli ). Mild tubular injury. Moderate interstitial fibrosis and tubular atrophy. Strong granular IgM and C3 staining on immunofluorescence with weak granular staining for C1q and kappa and lambda light chains. Electron microscopy with occasional, poorly-defined electron- dense areas in mesangium. Signed Dennis Jayla 01/01/18 <signature on file> Performed By: #### PKID #### [facility] [address] [facility] [place], [address] MODIFIED BARIUM Observed: 12/17/2017 Status: F Source: [place] SWALLOW STUDY 4:35 PM [facility] REPOSITORY [facility] Speech Pathology [address] [place] [address] Modified Barium Swallow Study MR#: [id number] Acct: [id number] Name: FRANK RIVERA Rep #: [id number] : 1955 62 From: Flori Hamilton M.A., CCC-CONCRETE VIBRATOR OPERATOR PRIMARY / SECONDARY DIAGNOSIS: Acute Renal Failure, anemia REFERRING PHYSICIAN: Gracy Danielson CURRENT DIET: Regular/[place] DENTITION: upper/lower dentures MENTAL STATUS: Alert and oriented RESPIRATORY STATUS: O2 via room air PREVIOUS MODIFIED BARIUM SWALLOW STUDY: N/A REASON FOR REFERRAL: Chest x-ray 12/15/2017 reports bibasilar patchy infiltrates worse on the right side. Received referral for bedside swallow evaluation d/t patient s hx of recent CVA and report for coughing with thin liquid at times. MEDICAL HISTORY: stroke, nicotine abuse, premature atrial contractions, left ventricular hypertrophy, presence of permanent cardiac pacemaker, mitral valve insufficiency and aortic valve insufficiency, sick sinus syndrome, S/P aortic valve replacement, SOB, hyperlipidemia, ventricular hypertrophy, and acute renal failure. STUDY FINDINGS: Patient participated in a Modified Barium Swallow (MBS) study on 12/17/2017. Dr. Carlos was the radiologist present for this evaluation. This study was recorded in the lateral view and images were sent to PACs for storage. The following consistencies were presented to this patient for analysis of oropharyngeal swallow function: thin liquid, nectar liquid, pudding, and a regular textured, Ariana Doone cookie. Results of the MBS are as follows: PENETRATION / ASPIRATION SCALE (HERNANDEZ): 1 = does not enter airway 2 = enters airway/above vocal folds/ejected 3 = enters airway/above vocal folds/not ejected 4 = enters airway/contacts vocal folds/ejected 5 = enters airway/contacts vocal folds/not ejected 6 = enters airway/below vocal folds/ejected 7 = enters airway/below vocal folds/not ejected despite effort 8 = enters airway/below vocal folds/no effort PENETRATION / ASPIRATION SCALE (SCORE): 8 1 thin liquids via teaspoon: 1 2 thin liquids via cup: 5 3 thin liquids via cup: 8 4 thin liquids via cup: 8 5 nectar liquids via teaspoon: 1 6 nectar liquids via cup: 1 7 nectar liquids via cup: 1 8 nectar liquids via cup: 1 9 pudding via teaspoon: 1 10 cookie: 1 11 thin liquids via cup with chin tuck: 1 12 thin liquids via cup with chin tuck: 1 IMPRESSION: ORAL PHASE CHARACTERIZED BY: LABIAL SEAL: no labial escape TONGUE CONTROL DURING BOLUS MANIPULATION: cohesive bolus between tongue to palatal seal BOLUS PREPARATION / MASTICATION: timely and efficient chewing and mashing BOLUS TRANSPORT / LINGUAL MOTION: brisk tongue motion ORAL RESIDUE: trace residue lining oral structures PHARYNGEAL PHASE CHARACTERIZED BY: INITIATION OF PHARYNGEAL SWALLOW: bolus head at posterior laryngeal surface of epiglottis at first hyoid excursion SOFT PALATE ELEVATION: no bolus between soft palate and pharyngeal wall LARYNGEAL ELEVATION: partial superior movement of thyroid cartilage/partial approximation of arytenoids cartilage to epiglottic petiole ANTERIOR HYOID EXCURSION: complete anterior movement EPIGLOTTIC MOVEMENT: complete epiglottic inversion LARYNGEAL VESTIBULE CLOSURE AT HEIGHT OF SWALLOW: incomplete laryngeal vestibule closure with narrow column of air/contrast in laryngeal vestibule PHARYNGEAL STRIPPING WAVE: pharyngeal stripping wave present / complete PHARYNGOESOPHAGEAL SEGMENT OPENING: complete distension and complete duration with no obstruction of flow TONGUE BASE RETRACTION: trace column of contrast between tongue base and posterior pharyngeal wall PHARYNGEAL RESIDUE: collection of residue within or on pharyngeal structures (valleculae/pyriforms) ESOPHAGEAL PHASE CHARACTERIZED BY: ESOPHAGEAL BOLUS CLEARANCE IN THE UPRIGHT POSITION: esophageal retention with retrograde flow through PES (scant amount) EFFECTS OF TREATMENT STRATEGIES ATTEMPTED: Chin tuck posture trialed with thin liquids effective at protecting airway. Cough and reswallow ineffective at clearing pharyngeal residue. INTERPRETATION OF RESULTS: Patient presents with moderate oropharyngeal dysphagia (R13.12) secondary to CVA. During trials of thin liquids, nectar thick liquids, pudding, and Ariana Doone Cookie patient demonstrated adequate labial seal with no labial escape. Patient had adequate tongue control during manipulation Ariana Doone cookie with cohesive bolus between tongue and palatal seal. Pt had adequate mastication with timely and efficient chewing. Bolus transport efficient with timely tongue motion. Trace oral residue remained. No oral holding noted. Delayed initiation of pharyngeal swallow including bolus head to valleculae at first hyoid excursion and all the way to posterior laryngeal surface of epiglottis during trial of thin with cup. Patient with aspiration noted that was SILENT in nature with trials of thin liquids via cup and tsp. Adequate soft palate elevation with no bolus noted between soft palate and pharyngeal wall. Trialed chin tuck with thin liquids via cup which was effective at eliminating aspiration. No overt s/s of aspiration noted with nectar thick liquids via cup or teaspoon. Decreased laryngeal elevation apparent with minimal superior movement of thyroid cartilage/minimal approximation of arytenoids cartilage to epiglottic petiole. Hyoid excursion showed partial anterior movement. Patient presented with incomplete laryngeal vestibule closure with narrow column of air/contrast in laryngeal vestibule. Adequate pharyngeal stripping wave. Trace column of contrast between tongue base and posterior pharyngeal wall. Mild-moderate collection of residue within the pharyngeal structures noted. Esophageal retention with flash retrograde flow through PES noted with thin liquids/chin tuck. Patient noted to SILENTLY aspirate with thin liquids, with clinical assessment at bedside relying on identification of classic overt signs and symptoms of aspiration unreliable. DIET TEXTURE RECOMMENDATIONS: Will recommend a regular textured, nectar thick liquid diet with consideration for thin liquid upgrade with use of chin tuck given thorough education and practice during skilled ST intervention. COMPENSATORY STRATEGIES RECOMMENDED: Reduced bolus volume, reduced rate of intake, liquid chaser, avoid straws, seated upright at 90 degrees during PO intake, remain upright for 30-60 minutes post meal (GERD precaution), medications with liquid chaser, and trials of chin tuck with thin liquids. SKILLED DYSPHAGIA TREATMENT RECOMMENDED: Patient requires intensive skilled speech-language intervention targeting continued diet texture management, training and implementation of recommended compensatory strategies, training and implementation of recommended oropharyngeal strengthening exercises to facilitate improved swallow onset timing. ADDITIONAL COMMENTS/RECOMMENDATIONS: Results and recommendations were discussed with the Patient immediately following MBS completion, with the Patient verbalizing understanding and agreement with all recommendations and education provided. IMAGE COUNT: [id number] 12/17/17 1635 <Electronically signed by Flori Hamilton M.A., CCC-CONCRETE VIBRATOR OPERATOR> Date Flori Hamilton M.A. CCC-CONCRETE VIBRATOR OPERATOR Co-Signature Required for all Medicare patients Date/Time Co-Signature CC: PROTEIN, URINE 24HR Collected: 12/17/2017 Status: F Source: LUX 1:30 PM [facility] REPOSITORY TYPE CODE TESTS RESULT OUT OF RANGE REFERENCE UNITS LAB L501.1850 24.0 HOURS Normal UR COLLECT 24.0 TIME LAB L501.1875 mL Normal UR TOTAL 1900 VOLUME LAB L501.1900 <11.9 mg/dL High URINE PROTEIN 122.4 LAB L501.1925 <150 MG/24HR mg/24HR High 24hr UR 2325.6 PROTEIN Performed By: #### L500.9000 #### [facility] [address] [place], [place], [id number] 24 HR UR CREATININE Collected: 12/17/2017 Status: C Source: LUX CLEARANCE 1:30 PM [facility] REPOSITORY Order Comment: Comments: add to 24hr urine protein TYPE CODE TESTS RESULT OUT OF RANGE REFERENCE UNITS LAB L501.0050 24.0 HOURS Normal UR COLLECT 24.0 TIME LAB L501.0075 mL Normal UR TOTAL 1900 VOLUME LAB L501.1050 0.8-1.3 mg/dL High SERUM CREAT 4.0 LAB L501.1110 >60 mL/min Low EST GFR 17 Result Comment: Non- GFR Calc AMENDED REPORT 12/17/171411 EST GFR previously reported as: 16 L mL/min LAB L501.1115 >60 mL/min Low EST GFR - AA 20 Result Comment: GFR Calc AMENDED REPORT 12/17/171411 EST GFR - AA previously reported as: 16 L mL/min LAB L501.1150 NO RANGE mg/dL EST. URINE Normal CREAT 80.9 LAB L501.1250 100-200 ml/min Low CREAT CLEARANCE 27 Result Comment: AMENDED REPORT 12/17/171411 CREAT CLEARANCE previously reported as: 26 L ml/min Performed By: #### L500.4507 #### [facility] [address] [facility] [place], [address] SWALLOWING FUNCTION Observed: 12/17/2017 Status: F Source: [place] W/VIDEO 10:16 AM [facility] REPOSITORY [facility] Imaging Services [address] [place] [address] Swallowing Function w/Video MR#: [id number] Acct: [id number] Name: FRANK RIVERA Rep #: [id number] : 1955 M 62 From: Yosvany Carlos MD PCP: Gracy Cuellar DO Status: ADM IN Study: Swallowing Function w/Video Date of Exam: 12/17/17 Exam# [id number] Ordering Dr: Gracy Danielson DO STUDY: SWALLOWING STUDY REASON FOR EXAM: Male, 62 years old. Dysphagia. CVA. TECHNIQUE: The examination was performed with Speech Pathology in attendance. Under fluoroscopic observation, the patient ingested thin barium, thick barium, barium pudding, and barium coated cracker. FLUOROSCOPY TIME: 1:54 minutes/seconds. 1122 spot images were obtained. RADIOLOGIST INVOLVEMENT: Radiologist was present and providing direct supervision. COMPARISON: None. FINDINGS: The following was observed during swallowing of the various mixtures of barium: Thin Barium: Penetration and silent aspiration with thin liquids. This improves with the chin tuck maneuver. Thick Barium: There was no evidence of aspiration or laryngeal penetration. Barium Pudding: There was no evidence of aspiration or laryngeal penetration. Barium Coated Cracker: There was no evidence of aspiration or laryngeal penetration. RAD/Swallowing Function w/Video IMPRESSION: Penetration and silent aspiration with ingestion of thin liquids. This improves with the chin tuck maneuver. The swallow study findings were discussed with the patient by the speech pathologist at the conclusion of the examination. Please see speech pathology report for more information and recommendations. Electronically Signed: Yosvany Carlos MD at 14:19 EDT Tel [phone], Service support , CC: Gracy Cuellar DO; Gracy Danielson DO Loss Prevention Operations Manager: Signed CONSULTATION Observed: 12/17/2017 Status: F Source: [place] 9:39 AM [facility] Medical Records Department [address] [place] [address] Consultation 12/15/17 1238 MR#: [id number] Acct: [id number] Name: MIGUELFRANK Fiona Rep #: [id number] : 1955 62 From: Shantal Palmer DO PCP: Gracy Cuellar DO Status: ADM IN Y Location: [facility] – [place] [id number] Consultation - Renal 12/15/17 PCP/ Referring MD: Requesting physician: [] Primary care physician: Gracy Cuellar DO Reason for Consultation:: IRINA - History of Present Illness History of Present Illness: The patient is a 62 year old male who presents to the emergency room with profound weakness and shortness of breath for several days. He denied any chest pain, syncope, palpitations. He was found to be anemic with a hemoglobin 7.5 g. Hemoglobin is down to 6.8 g today and is scheduled for blood transfusion. He was recently hospitalized early October for facial droop and stroke symptoms. He was transferred to [facility] in [place] for follow-up care. He was discharged to home after hospitalized for 2 days. No intervention with IV contrast or TPA therapy was done based on patient history. His creatinine was normal at 0.95 in October 2017. Creatinine on admission was 4.12. He has no prior history for kidney disease that he is aware of. He did have CT with IV contrast back in October. He has noticed increased leg edema with shortness of breath after discharge from [facility]. He denies history of DVT or PE. Potassium level was elevated at 5.4. He has been drinking orange juice at home and eating bananas and V8. 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 He has a history of GI bleed multiple times and has been on PPI and Carafate for years. He required cauterization of bleeding site in the past. He denied any black tarry stools. He has been on IV iron therapy a year ago due to poor iron absorption from his Min-en-Y. He was taken off aspirin and Eliquis yesterday by cardiology that he has been on since his aortic valve replacement in April 2017. He also had atrial fibrillation with successful cardioversion. He had a pacemaker placed. Pacemaker was checked November 16. Echo from April 2017 showed preserved LV function. Apparently Echo performed at [facility] was reported to be normal according to family. 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 He just drove back from [place] yesterday prior to admission. He admits to not drinking as much fluids while he is on the road. Since his stroke in October he had trouble swallowing liquids more than solids. He does have a cough. Denied any fever or chills. Speech evaluation was ordered. - Allergies Allergies: Allergies Penicillins Allergy (Verified 12/14/17 21:35) Hives - Current Medications Current Medications: Current Medications Acetaminophen (Tylenol) 500 mg PO Q4H PRN PRN PRN Reason: PAIN Ascorbic Acid (Vitamin C) 500 mg PO DAILY ATUL Last Admin: 12/15/17 08:56 Dose: 500 mg Atorvastatin Calcium (Lipitor) 80 mg PO DAILY@2200 [facility] Cholecalciferol (Vitamin D) 2,000 unit PO DAILY [facility] Last Admin: 12/15/17 08:55 Dose: 2,000 unit Cyanocobalamin (Vitamin B12) 500 mcg PO DAILY [facility] Last Admin: 12/15/17 08:56 Dose: 500 mcg Hydralazine HCl (Apresoline) 25 mg PO Q8 [facility] Last Admin: 12/15/17 05:59 Dose: 25 mg Sodium Chloride () 250 mls @ 15 mls/hr IV .[id number] PRN PRN Reason: SALINE FLUSH Levothyroxine Sodium (Synthroid) 200 mcg PO DAILY@0600 [facility] Last Admin: 12/15/17 05:59 Dose: 200 mcg Magnesium Hydroxide (Milk Of Magnesia) 30 ml PO DAILY PRN PRN PRN Reason: Constipation Magnesium Oxide (Mag-Ox 400) 400 mg PO DAILY [facility] Last Admin: 12/15/17 08:55 Dose: 400 mg Metoprolol Tartrate (Lopressor (Beta Magdy)) 12.5 mg PO BID [facility] Last Admin: 12/15/17 08:55 Dose: 12.5 mg Multivitamins (Multivitamin) 1 tablet PO DAILYCM [facility] Last Admin: 12/15/17 08:55 Dose: 1 tablet Pantoprazole Sodium (Protonix) 40 mg PO BID [facility] Last Admin: 12/15/17 08:55 Dose: 40 mg Sodium Chloride () 5 - 30 ml IV UD PRN PRN Reason: SALINE FLUSH Last Admin: 12/15/17 11:20 Dose: 20 ml - Past Medical History Past Medical History (Chronic Problems): Chronic Problems (Last Reviewed 11/16/17 @ 08:36 by Suzanne Ferris) Nicotine abuse (Chronic) Premature atrial contractions (Chronic) 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 Tirfecta pericardial valve Aortic stenosis (Chronic) S/P valve replacement with 27mm [employer] Richi Trifecta pericardial valve; Atherosclerotic heart disease of [place] coronary artery without angina pectoris (Chronic) Hyperlipidemia (Chronic) Ventricular hypertrophy (Chronic) - Past Surgical History Surgical History: coronary bypass surgery - AVR Apr 2017, Min-en-y 1996, pacemaker implantation - Social History Smoking Status: Current some day smoker - Family History Maternal Family History: Family History (Last Reviewed 11/16/17 @ 08:36 by Suzanne Ferris) Father CAD (coronary artery disease) Mother CAD (coronary artery disease) Thyroid disorder Sister Thyroid cancer History Items: No pertinent history Review of Systems Constitutional: Reports: Anorexia, Weakness - attributed to his anemia. Denies: Chills, Fever Eyes: Denies: Vision Change HEENT: Reports: Head Aches - Intermittently Cardiovascular: Reports: Edema, Light Headedness. Denies: Chest Pain, Palpitations, Syncope Respiratory: Reports: Cough, Shortness of Breath, Shortness of breath upon exertion. Denies: Hemoptysis, Wheezing Gastrointestinal: Reports: - - Decreased intake., - - History of GI bleed, room 1.. Denies: Abdominal Pain, Constipation, Diarrhea, Nausea, Vomiting Genitourinary: Reports: - - Decreased urine output with decreased fluid intake. Denies: Dysuria Musculoskeletal: Reports: - - Leg edema past several days. Denies: Back Pain Skin: Reports: Rash - Punctated petechial rash while on Eliquis Neurological: Reports: Balance problems, Change in Speech, Slurred speech - Slurred speech with recent stroke, - - Difficulty swallowing, right facial droop on corner of mouth. Denies: Numbness, Tremor, Seizures Psychiatric: Denies: Anxiety, Depression Hematologic/ Lymphatic: Reports: Petechiae. Denies: Hx of blood clot Patient Problems: Active and Suspected Problems (Last Reviewed 11/16/17 @ 08:36 by Suzanne Ferris) ARF (acute renal failure) (Acute) - Physical Exam General: Alert, Oriented x3, Cooperative, No apparent distress, - - Week HEENT: Atraumatic, PERRLA, EOMI Oral: Dry Mucosa Neck: Supple Lungs: Rales - Bibasilar Cardiovascular: Regular rate, - Abdomen: Bowel Sounds Present, Soft, Non Tender, Non-Distended Extremities: Edema - 1+ pitting Skin: - - Punctated ecchymosis Musculoskeletal: No Muscle Wasting Neurological: Facial Droop - Slight on right Psych/Mental Status: Normal Affect, Appropriate, Alert and oriented to time, place, person, mood and affect Vital Signs Temp Pulse Resp BP Pulse Ox 98.3 F 66 18 130/79 H 100 12/15/17 12:26 12/15/17 12:26 12/15/17 12:12/15/17 12:12/15/17 12:26 Oxygen Flow Rate (L/min) 2 Oxygen Delivery Method Nasal Cannula Weight: 106.594 kg Body Mass Index (BMI) 28.5 Finger Stick Blood Glucose 82 Intake and Output for Last 24 Hours Intake Total 220 / 220 Output Total 280 / 280 Balance -60 / -60 Microbiology Past 72 Hours 12/14/17 23:05 Stool Occult Blood (PAWAN) - Final Stool Occult Blood Positive Laboratory Tests Past 24 Hrs WBC RBC WBC RBC Hgb Hct MCV MCH MCHC RDW RDW Differential Plt Count WBC RBC Hgb Hct MCV MCH MCHC RDW RDW Differential Plt Count MPV Immature Gran % (Auto) Assessment/Plan All Active Problems (Last Reviewed 11/16/17 @ 08:36 by Suzanne Ferris) ARF (acute renal failure) (Acute) Acute CVA (cerebrovascular accident) (Acute 10/27/17) 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) Atrial fibrillation (Acute) Sinus bradycardia (Acute) SOB (shortness of breath) (Acute) Atrioventricular block, type I (Acute) Premature ventricular contraction (Acute) Abnormal EKG (Acute) Bruit of left carotid artery (Acute) 1. IRINA baseline creatinine 0.99 in October increased to 4.2 on admission to 3.9 today. Last iv contrast exposure in October when seen in ER for stroke symptoms with subsequent transfer to [facility]. Records from [facility] hospitalization not available. LVEF with preserved cardiac function but pt with recent episode of edema. He has mild leukopenia with anemia. Urine with protein and blood. Herring catheter placement to monitor urine output, check renal us. Check for inflammatory disorder. Etiology for renal failure unclear. 2. Profound anemia off Eliquis and ASA yesterday, stool + for occult blood. Mild petechial rash on hands and legs may be from trauma on anticoagulation but will evaluate for vasculitis 3. Hx GI bleed, min-en-y on PPI 4. CAD s/p CABG, AVR bioprosthetic valve 5. Leg edema with nonnephrotic proteinuria. UPCR 1.5g/gCr. 6. Hx recent stroke with facial droop, dysphagia. Swallow eval. 7. Cough CXR evaluate for aspiration pneumonia 8. Hx afib with pacemaker 9.Hyperlipidemia on statins 12/17/17 0939 <Electronically signed by Shantal Palmer DO> Date Shantal Palmer DO Cosigner Signature (if applicable): Date CC: Shantal Palmer DO; Gracy Cuellar DO Signed PROTHROMBIN TIME W/INR Collected: 12/17/2017 Status: F Source: LUX 9:30 AM [facility] REPOSITORY TYPE CODE TESTS RESULT OUT OF RANGE REFERENCE UNITS LAB L300.4150 11.7-14.9 SECONDS High PROTIME 17.8 LAB L300.4200 Normal INR 1.5 Performed By: #### L300.3900 #### [facility] [address] [facility] [place], [address] BIOPSY/INJ OR NEEDLE Observed: 12/17/2017 Status: F Source: LUX PLACEMENT 9:20 AM [facility] REPOSITORY [facility] Imaging Services [address] [facility] [place] [address] Biopsy/Inj or Needle Placement MR#: [id number] Acct: [id number] Name: CLAUDEAMINAFRANK T Rep #: [id number] : 1955 62 From: Yosvany Carlos MD PCP: Gracy Cuellar DO Status: ADM IN Study: Biopsy/Inj or Needle Placement Date of Exam: 12/18/17 Exam# [id number] Ordering Dr: Gracy Danielson DO PROCEDURE: CT GUIDED PERCUTANEOUS KIDNEY BIOPSY. DATE: December 18, 2017. INDICATION: Male, 62 years old. Renal failure. PHYSICIAN: Yosvany Carlos M.D. MEDICATIONS: 2 mg of Versed and 50 mcg of fentanyl intravenously be conscious sedation was started 11:10 AM and terminated 11:26 AM. The patient was independently monitored by the department nurse. ACCESS SITE: Lower pole of the right kidney. NEEDLE: 18-gauge core biopsy needle. SPECIMEN: 4 18-gauge cores. EBL: None. COMPLICATIONS: None immediate. RADIATION DOSAGE (If Supplied By Facility): CTDIvol = ( 15.5 ) mGy, DLP = ( 728.39 ) mGycm. Individualized dose reduction techniques were utilized. The risks, benefits, and alternatives to the procedure and sedation were explained to the patient. The specific risk of hemorrhage requiring further treatment or intervention was detailed and accepted. Written informed consent was obtained. The patient was placed on the CT table in the prone position. Multiple axial images were obtained from the lung base through the caudal extent of the kidneys. An appropriate entry site was identified and a gracy made on the skin. The skin overlying the [right ] posterior flank was prepped and draped in sterile fashion. 1% lidocaine was administered subcutaneously for local anesthesia. Initially, a 22 gauge needle was advanced and CT images confirmed good needle position. The 22 gauge needle was then exchanged for an 17 gauge introducer needle which was advanced. Repeat CT images confirmed good needle trajectory and tip position. The introducer needle was then advanced into the periphery of the inferior renal pole, and CT images were again obtained to confirm exact tip location. The inner stylet of the introducer needle was then removed and an 18 gauge coaxial needle was advanced thru the introducer needle and biopsy performed. A total of [ 4] passes were performed and the specimen collected was sent to Pathology for further evaluation. The needle was withdrawn. Hemostasis was achieved with manual compression and a sterile dressing was applied. Repeat CT images of the biopsy area was performed which demonstrated no gross bleeding or hematoma. The patient tolerated the procedure well without immediate complications. The patient was transported to the [floor/recovery area] in stable condition. CT/Biopsy/Inj or Needle Placement IMPRESSION: Successful CT guided percutaneous kidney biopsy. Conscious sedation protocol was followed. Electronically Signed: Yosvany Carlos MD at 12:38 EDT Tel [phone], Service support , CC: Gracy Cuellar DO; Gracy Danielson DO Loss Prevention Operations Manager: Signed CBC-COMPLETE BLOOD CNT Collected: 12/17/2017 Status: F Source: LUX NO DIFF 5:17 AM [facility] REPOSITORY TYPE CODE TESTS RESULT OUT OF RANGE REFERENCE UNITS LAB L100.1000 4.4-11.0 K/mm3 Low WBC 4.0 LAB L100.1200 4.6-6.2 M/mm3 Low RBC 2.62 LAB L100.1300 13.0-16.5 g/dl Low HGB 8.0 LAB L100.1400 40-54 % Low HCT 25.7 LAB L100.1500 80-94 fL High MCV 98.1 LAB L100.1600 27.0-32.0 pg Normal MCH 30.5 LAB L100.1700 32-36 g/gl Low MCHC 31.1 LAB L100.1810 11.6-14.6 % High RDW CV 22.9 LAB L100.1820 35.1-43.9 fl High RDW SD 81.6 LAB L100.1900 150-450 K/mm3 Low PLT 89 LAB L100.2000 6.2-12.0 fl Normal MPV 9.4 Performed By: #### L100.0500, L100.4500 #### [facility] [address] [facility]. [place], [place], [id number] DIFFERENTIAL COMMENT Collected: 12/17/2017 Status: F Source: LUX 5:17 AM [facility] REPOSITORY TYPE CODE TESTS RESULT OUT OF RANGE REFERENCE UNITS LAB L100.4500 Normal SMEAR COMMENT SCANNED Result Comment: 3+ ANISOCYTOSIS NOTED 2+ MICROCYTOSIS NOTED Performed By: #### L100.0500, L100.4500 #### [facility] [address] [facility]. [place], [place], [id number] RENAL PROFILE Collected: 12/17/2017 Status: F Source: LUX 5:17 AM [facility] REPOSITORY TYPE CODE TESTS RESULT OUT OF RANGE REFERENCE UNITS LAB L501.0100 74-106 mg/dL Normal GLU 85 Result Comment: Please note revised GLUCOSE reference range effective 2017. LAB L501.1000 7-18 mg/dL High BUN 65 LAB L501.1100 0.70-1.30 mg/dL High CREAT,SERUM 3.96 Result Comment: The validity of the calculated GFR AND GFRAA in patients over 70 years has not been determined. Clinical correlation is essential. LAB L501.1110 >60 mL/min Low EST GFR 17 Result Comment: Non- GFR Calc LAB L501.1115 >60 mL/min Low EST GFR - AA 20 Result Comment: GFR Calc LAB L501.1255 ml/min Normal Estimated CRCL 24.05 LAB L501.1300 10-20 RATIO Normal BUN/CRE 16.4 LAB L501.1800 3.2-5. g/dL Low 0 ALB 2.0 LAB L501.2200 8.5-10 mg/dL Low .1 CA 7.9 LAB L501.2300 2.5-4. mg/dL Normal 9 PHOS 4.1 LAB L501.5300 136-14 mmol/L Normal 5 NA 142 LAB L501.5600 3.5-5. mmol/L High 1 K 5.2 LAB L501.5900 98-107 mmol/L High CL 116 LAB L501.6100 21.0-3 mmol/L Low 2.0 CO2 19.0 Performed By: #### L500.3600 #### [facility] [address] [facility] [place], [address] HH, HEMOGLOBIN AND Collected: 12/16/2017 Status: F Source: [place] HEMATOCRIT 3:54 PM [facility] REPOSITORY TYPE CODE TESTS RESULT OUT OF RANGE REFERENCE UNITS LAB L100.1300 13.0-16.5 g/dl Low HGB 8.4 LAB L100.1400 40-54 % Low HCT 26.8 Performed By: #### L100.0600 #### [facility] [address] [place], [address] PROTEIN ELECTRO.UR-RANDOM Collected: Status: F Source: [place] 12/16/2017 1:30 PM [facility] REPOSITORY TYPE CODE TESTS RESULT OUT OF RANGE REFERENCE UNITS LAB L3600.4100 Not Estab. mg/dL Normal 101.6 PROTEIN,UR LAB L3600.4200 . % Normal 32.3 ALBUMIN,UR LAB L3600.4300 . % Normal 2.5 VJTQU-7-BBIK ,U LAB L3600.4400 . % Normal 7.7 TTGHB-8-TUVY ,U LAB L3600.4500 . % Normal BETA 15.0 GLOB,U LAB L3600.4600 . % Normal GAMMA 42.4 GLOB,U LAB L3600.4720 Normal M-SPIKE,U Result Comment: MONOCLONAL #1 = 9.5% MONOCLONAL #2 = 10.4% LAB L3600.4800 . Normal NOTE Comment Result Comment: Protein electrophoresis scan will follow via computer, mail, or publicity director delivery. Performed at: [facility] [id number] Truck Driving Instructor: Kaiden Wraner PhD, Phone: [phone] Performed By: #### L3600.4000 #### [facility] (refer to report for specific site) refer to report for address and phone number Observed: 12/16/2017 Status: F Source: [place] CULTURE, SPUTUM 10:00 AM [facility] REPOSITORY Gram Stain Acceptable Specimen? Yes (<25 Epithelial cells per/lpf) Gram Stain 1+ White Blood Cells 1+ Epithelial cells 2+ Gram positive cocci 1+ Gram positive rods Resp. Culture Penicillin is the drug of choice for Beta Streptococcal infections. For Penicillin allergic patients, Erythromycin may be used. Mixed normal respiratory arabella. No Haemophilus, Streptococcus pneumoniae or Staphylococcus aureus isolated. ORGANISM 1: Streptococcus group C Amount Growth 2+ Performed By: #### M100.0800 #### [facility] [place], [place], [address] RENAL PROFILE Collected: 12/16/2017 Status: F Source: [place] 5:00 AM [facility] REPOSITORY TYPE CODE TESTS RESULT OUT OF RANGE REFERENCE UNITS LAB L501.0100 74-106 mg/dL Normal GLU 98 Result Comment: Please note revised GLUCOSE reference range effective 2017. LAB L501.1000 7-18 mg/dL High BUN 70 LAB L501.1100 0.70-1.30 mg/dL High CREAT,SERUM 3.93 Result Comment: The validity of the calculated GFR AND GFRAA in patients over 70 years has not been determined. Clinical correlation is essential. LAB L501.1110 >60 mL/min Low EST GFR 17 Result Comment: Non- GFR Calc LAB L501.1115 >60 mL/min Low EST GFR - AA 20 Result Comment: GFR Calc LAB L501.1255 ml/min Normal Estimated CRCL 24.23 LAB L501.1300 10-20 RATIO Normal BUN/CRE 17.8 LAB L501.1800 3.2-5. g/dL Low 0 ALB 2.0 LAB L501.2200 8.5-10 mg/dL Low .1 CA 7.9 LAB L501.2300 2.5-4. mg/dL Normal 9 PHOS 3.8 LAB L501.5300 136-14 mmol/L Normal 5 NA 142 LAB L501.5600 3.5-5. mmol/L High 1 K 5.4 LAB L501.5900 98-107 mmol/L High CL 116 LAB L501.6100 21.0-3 mmol/L Low 2.0 CO2 19.0 Performed By: #### L500.3600, L504.2610 #### [facility] [address] [place], [address] LDH Collected: 12/16/2017 Status: F Source: [place] 5:00 AM [facility] REPOSITORY TYPE CODE TESTS RESULT OUT OF RANGE REFERENCE UNITS LAB L504.2610 87-241 U/L High LDH 309 Performed By: #### L500.3600, L504.2610 #### [facility] [address] [place], [address] PROTHROMBIN TIME W/INR Collected: 12/16/2017 Status: F Source: [place] 5:00 AM [facility] REPOSITORY TYPE CODE TESTS RESULT OUT OF RANGE REFERENCE UNITS LAB L300.4150 11.7-14.9 SECONDS High PROTIME 17.6 LAB L300.4200 Normal INR 1.4 Performed By: #### L300.3900 #### [facility] [address] [place], [address] PROTEIN ELECTROPH, S Collected: 12/16/2017 Status: F Source: [place] 5:00 AM [facility] REPOSITORY TYPE CODE TESTS RESULT OUT OF RANGE REFERENCE UNITS LAB L3100.3500 6.0-8.5 g/dL Normal PROTEIN,TOTAL 6.8 LAB L3100.3600 2.9-4.4 g/dL Low ALBUMIN 2.4 LAB L3100.3700 0.0-0.4 g/dL Normal ALPHA-1 GLOBUL 0.3 LAB L3100.3800 0.4-1.0 g/dL Normal ALPHA-2 GLOBUL 0.5 LAB L3100.3900 0.7-1.3 g/dL Low BETA GLOBULIN 0.6 LAB L3100.4000 0.4-1.8 g/dL High GAMMA GLOBULIN 3.0 LAB L3100.4110 Normal M-SPIKE Result Comment: ASYMMETRICAL GAMMA LAB L3100.4200 2.2-3.9 g/dL GLOBULIN, TOTAL High 4.4 LAB L3100.4300 0.7-1.7 Low A/G RATIO 0.5 LAB L3100.4320 . INTERPRETATION Normal Comment Result Comment: Protein electrophoresis scan will follow via computer, mail, or publicity director delivery. LAB L3100.4340 . Normal NOTE: Comment Result Comment: Serum Protein Electrophoresis shows an asymmetrical gamma region which may represent the presence of a paraprotein. Recommend serum immunofixation electrophoresis to rule out a plasma cell dyscrasia, if clinically indicated. Performed By: #### L3100.3450, L3300.1200, L3100.5450 #### [facility] (refer to report for specific site) refer to report for address and phone number ANCA Collected: 12/16/2017 Status: F Source: LUX 5:00 AM [facility] REPOSITORY TYPE CODE TESTS RESULT OUT OF RANGE REFERENCE UNITS LAB L3300.1225 Neg:<1:20 titer CYTOPLASMIC Normal Ab <1:20 LAB L3300.1250 Neg:<1:20 titer PERINUCLEAR Normal Ab <1:20 Result Comment: The presence of positive fluorescence exhibiting P-ANCA or C-ANCA patterns alone is not specific for the diagnosis of Gracia's Granulomatosis (WG) or microscopic polyangiitis. Decisions about treatment should not be based solely on ANCA IFA results. The International ANCA [employer] Consensus recommends follow up testing of positive sera with both NE- 3 and MPO-ANCA enzyme immunoassays. As many as 5% serum samples are positive only by EIA. Ref. AM J Clin Pathol 1999;111:507-513. LAB L3300.1285 Neg:<1:20 titer Normal Atypical pANCA <1:20 Result Comment: The atypical pANCA pattern has been observed in a significant percentage of patients with ulcerative colitis, primary sclerosing cholangitis and autoimmune hepatitis. Performed at: [facility] [address] [id number] Truck Driving Instructor: Kaiden Warner PhD, Phone: [phone] Performed By: #### L3100.3450, L3300.1200, L3100.5450 #### [facility] (refer to report for specific site) refer to report for address and phone number FATOU W/ REFLEX MULT Collected: 12/16/2017 Status: F Source: LUX CONFIRM 5:00 AM [facility] REPOSITORY TYPE CODE TESTS RESULT OUT OF RANGE REFERENCE UNITS LAB L3100.5475 Negative Normal Negative FATOU-DIRECT Result Comment: Performed at: [facility] [address] [id number] Truck Driving Instructor: Kaiden Warner PhD, Phone: [phone] Performed By: #### L3100.3450, L3300.1200, L3100.5450 #### [facility] (refer to report for specific site) refer to report for address and phone number Observed: 12/16/2017 Status: F Source: LUX CULTURE, BLOOD (WB) 5:00 AM [facility] REPOSITORY Has pt arrived? Y BC No growth in 5 days. Performed By: #### M200.1000 #### [facility] [address] [place], [place], [id number] Observed: 12/16/2017 Status: F Source: LUX CULTURE, BLOOD (WB) 5:00 AM [facility] REPOSITORY Has pt arrived? Y BC No growth in 5 days. Performed By: #### M200.1000 #### [facility] [address] [place], [place], [id number] CHEST PA AND LATERAL Observed: 12/16/2017 Status: F Source: LUX 4:05 AM [facility] REPOSITORY [facility] Imaging Services [address] [place] [address] Chest PA and Lateral MR#: [id number] Acct: [id number] Name: FRANK RIVERA Rep #: [id number] : 1955 M 62 From: Yosvany Carlos MD PCP: Gracy Cuellar DO Status: ADM IN Study: Chest PA and Lateral Date of Exam: 12/16/17 Exam# [id number] Ordering Dr: Noemí Vela STUDY: X-RAY CHEST REASON FOR EXAM: Male, 62 years old. Shortness of breath. Anemia. TECHNIQUE: PA and lateral views of the chest. COMPARISON: Comparison is made with prior study dated December 15, 2017. FINDINGS: Residual bibasilar infiltrates slightly worse on the right side. This as improved as compared to prior study. Blunting of both costophrenic angles slightly worse on the right side. Sternal cerclage wires and vascular clips are present from a prior sternotomy and coronary artery bypass graft procedure (CABG). The patient is status post mitral valve replacement as well as atrial clipping. A left-sided dual-chamber pacemaker is seen. Normal mediastinum and soren. Normal visualized pulmonary arteries. There is atherosclerotic calcification of the aortic arch with tortuosity. There are diffuse degenerative changes of the visualized thoracic spine. Normal visualized ribs, clavicles, and shoulders. There is no demonstrated abnormality of the visualized soft tissue structures of the upper abdomen. RAD/Chest PA and Lateral IMPRESSION: Residual bibasilar infiltrates worse on the right side with the blunting of both costophrenic angles worse on the right side Electronically Signed: Yosvany Carlos MD at 11:10 EDT Tel [phone], Service support , CC: Noemí Vela; Gracy Cuellar DO Loss Prevention Operations Manager: Signed PROTEIN, URINE Collected: 12/15/2017 Status: F Source: LUX (RANDOM) 12:40 PM [facility] REPOSITORY TYPE CODE TESTS RESULT OUT OF RANGE REFERENCE UNITS LAB L501.1930 <11.9 mg/dL High 108.6 PROTEIN,UR.R AN. Performed By: #### L501.1930 #### [facility] [address] [place], [address] URINE SODIUM Collected: 12/15/2017 Status: F Source: [place] 12:40 PM [facility] REPOSITORY TYPE CODE TESTS RESULT OUT OF RANGE REFERENCE UNITS LAB L501.5500 Not Establ. mmol/L Normal UR NA 61 Performed By: #### L501.5500 #### [facility] [address] [place], [address] CREATININE, URINE Collected: 12/15/2017 Status: F Source: [place] 12:40 PM [facility] REPOSITORY TYPE CODE TESTS RESULT OUT OF RANGE REFERENCE UNITS LAB L502.0300 NO RANGE EST. mg/dL Normal URINE 71.50 CREAT Performed By: #### L502.0300 #### [facility] [address] [place], [address] STREP Observed: 12/15/2017 Status: F Source: [place] PNEUMONIAE ANTIG(UR,CSF) 12:40 PM [facility] REPOSITORY CALLED NAVI ON MS2, NO URINE SPECIMEN IN MICRO. 12/16/17 BL PATIENT COLLECTING 24 HOUR URINE, SO WILL BE UNABLE TO OBTAIN UNTIL 12/17/17. S pneumo Ag URINE INTERPRETATION Negative Urine Presumptive negative for pneumococcal pneumonia, suggesting no current or recent pneumococcal infection. Infection due to S pneumoniae cannot be ruled out since the antigen present in the sample may be below the detection limit of the test. Strep pneumo Test Negative URINE (See interpretation below) Performed By: #### M300.4600 #### [facility] [address] [place], [address] Observed: 12/15/2017 Status: F Source: [place] LEGIONELLA ANTIGEN 12:40 PM [facility] URINE REPOSITORY Legionella, UR Legionella Antigen result interpretation: Negative Presumptive negative for Legionella pneumophila serogroup 1 antigen in urine, suggesting no recent or current infection. Legionella Ag, Urine Negative (See interpretation below) Performed By: #### M300.4500 #### [facility] [place], [address] CHEST PA AND LATERAL Observed: 12/15/2017 Status: F Source: [place] 12:29 PM [facility] REPOSITORY [facility] Imaging Services [address] [place] [address] Chest PA and Lateral MR#: [id number] Acct: [id number] Name: FRANK RIVERA Rep #: [id number] : 1955 M 62 From: Yosvany Carlos MD PCP: Gracy Cuellar DO Status: ADM IN Study: Chest PA and Lateral Date of Exam: 12/15/17 Exam# [id number] Ordering Dr: Shantal Palmer DO STUDY: X-RAY CHEST REASON FOR EXAM: Male, 62 years old. Shortness of breath. Bibasilar crackles. TECHNIQUE: PA and lateral views of the chest. COMPARISON: Comparison is made with prior examination dated October 26, 2017. FINDINGS: There is evidence of bibasilar infiltrates worse on the right side. There is no demonstrated pleural abnormality. Sternal cerclage wires and vascular clips are present from a prior sternotomy and coronary artery bypass graft procedure (CABG). A left-sided dual-chamber pacemaker is seen. Atrial appendage clip. Normal mediastinum and soren. Normal visualized pulmonary arteries. There is atherosclerotic tortuosity of the aortic arch and descending thoracic aorta. There are degenerative changes of the visualized thoracic spine. Normal visualized ribs, clavicles, and shoulders. Surgical clips are seen in the left upper quadrant. RAD/Chest PA and Lateral IMPRESSION: Bibasilar patchy infiltrates worse on the right side. Electronically Signed: Yosvany Carlos MD at 13:46 EDT Tel [phone], Service support , CC: Shantal Palmer DO; Gracy Cuellar DO Loss Prevention Operations Manager: Signed KIDNEY AND BLADDER Observed: 12/15/2017 Status: F Source: LUX 9:29 AM [facility] REPOSITORY [facility] Imaging Services [address] [place] [address] Kidney and Bladder MR#: [id number] Acct: [id number] Name: FRANK RIVERA Rep #: [id number] : 1955 M 62 From: Brandon Vela MD PCP: Gracy Cuellar DO Status: ADM IN Study: Kidney and Bladder Date of Exam: 12/15/17 Exam# [id number] Ordering Dr: Shantal Palmer DO STUDY: RENAL ULTRASOUND - COMPLETE REASON FOR EXAM: Male, 62 years old. Acute renal failure. TECHNIQUE: Ultrasound evaluation of the kidneys was performed with real-time and static beyer-scale imaging. COMPARISON: CT abdomen and pelvis November 12, 2012 was not available for comparison at the time of this dictation, but reports that study was reviewed. FINDINGS: RIGHT KIDNEY: Normal location of the right kidney, which is normal in size. The right kidney measures 12.1 x 6.3 x 5.5 cm. There is a normal cortex of the right kidney. The renal cortex measures 2.0 cm. There is no right renal mass or cyst. There are no right renal calculi. There is no right hydronephrosis. DISTAL RIGHT URETER: There is non-visualization of the distal right ureter. There is no demonstrated right ureterovesical junction calculus. There is no demonstrated right ureteral jet. LEFT KIDNEY: Normal location of the left kidney, which is normal in size. The left kidney measures 11.2 x 6.3 x 4.7 cm. There is a normal cortex of the left kidney. The renal cortex measures 1.8 cm. There is no left renal mass or cyst. There are no left renal calculi. There is no left hydronephrosis. Liver: The liver measures 18 cm. There is increased echogenicity consistent with fatty infiltration. The bile ducts are within normal limits. There is no demonstrated mass lesion. Gallbladder: There is a partially contracted gallbladder. The gallbladder wall measures 3.8 mm. There is a negative sonographic Kruger's sign. There is mild pericholecystic fluid. There are at least 2 rounded subcentimeter echogenic structures within the gallbladder, consistent with multiple gallstones. BLADDER: The urinary bladder is not visualized. US/Kidney and Bladder IMPRESSION: 1. Normal ultrasound of the kidneys. 2. The urinary bladder is not visualized. 3. Incidental note of gallstones and mild pericholecystic fluid. The gallbladder is partially contracted, precluding accurate evaluation of mural thickness. Acute cholecystitis is not excluded by this study, however. 4. Fatty infiltration of the liver. Electronically Signed: Christ Vela MD at 16:09 EDT , Service support , CC: Shantal Palmer DO; Gracy Cuellar DO Loss Prevention Operations Manager: Signed CBC W/DIFF, AUTOMATED Collected: 12/15/2017 Status: F Source: ULX 6:23 AM [facility] REPOSITORY TYPE CODE TESTS RESULT OUT OF RANGE REFERENCE UNITS LAB L100.1000 4.4-11.0 K/mm3 Low WBC 3.7 LAB L100.1200 4.6-6.2 M/mm3 Low RBC 2.15 LAB L100.1300 13.0-16.5 g/dl Low HGB 6.8 LAB L100.1400 40-54 % Low HCT 22.3 LAB L100.1500 80-94 fL High MCV 103.7 LAB L100.1600 27.0-32.0 pg Normal MCH 31.6 LAB L100.1700 32-36 g/gl Low MCHC 30.5 LAB L100.1810 11.6-14.6 % High RDW CV 22.7 LAB L100.1820 35.1-43.9 fl High RDW SD 81.8 LAB L100.1900 150-450 K/mm3 Low PLT 115 LAB L100.2000 6.2-12.0 fl Normal MPV 9.8 LAB L100.2100 47-70 % Normal NEUT% 57.9 LAB L100.2200 19-41 % Normal LY% 33.2 LAB L100.2300 0-10 % Normal MONO% 8.6 LAB L100.2400 0-5 % Normal EO% 0.0 LAB L100.2500 0-1 % Normal BASO% 0.3 LAB L100.2550 0.0-0.9 % Normal IM GRAN % 0.000 Result Comment: IG% - Immature Granulocytes (promyelocytes, myelocytes and metamyelocytes) > 1% indicates that a LEFT SHIFT is Present. LAB L100.2620 2.0-7.7 X10 3/uL Normal Absolute Neut 2.2 LAB L100.2720 0.83-4.51 X10 3/ul Normal Absolute Lymph 1.24 LAB L100.4500 Normal SMEAR COMMENT COMMENT Result Comment: SLIDE SCANNED - 1+ ANISO NOTED. Performed By: #### L100.0100 #### [facility] [address] [place], [address] BASIC METABOLIC Collected: 12/15/2017 Status: F Source: [place] PROFILE ([facility]) 6:23 AM [facility] REPOSITORY TYPE CODE TESTS RESULT OUT OF RANGE REFERENCE UNITS LAB L501.0100 74-106 mg/dL Normal GLU 102 Result Comment: Fasting Glucose result from 100 to 125 mg/dL suggests IMPAIRED HOMEOSTASIS per A.D.A. criteria. Please note revised GLUCOSE reference range effective 2017. LAB L501.1000 7-18 mg/dL High BUN 67 LAB L501.1100 0.70-1.30 mg/dL High CREAT,SERUM 3.96 Result Comment: The validity of the calculated GFR AND GFRAA in patients over 70 years has not been determined. Clinical correlation is essential. LAB L501.1110 >60 mL/min Low EST GFR 17 Result Comment: Non- GFR Calc LAB L501.1115 >60 mL/min Low EST GFR - AA 20 Result Comment: GFR Calc LAB L501.1255 ml/min Normal Estimated CRCL 24.05 LAB L501.1300 10-20 RATIO Normal BUN/CRE 16.9 LAB L501.2200 8.5-10 mg/dL Low .1 CA 7.9 LAB L501.5300 136-14 mmol/L Normal 5 NA 141 LAB L501.5600 3.5-5. mmol/L High 1 K 5.4 LAB L501.5900 98-107 mmol/L High CL 114 LAB L501.6100 21.0-3 mmol/L Low 2.0 CO2 20.0 LAB L501.6200 5-15 Normal GAP 7 Performed By: #### L500.2500 #### [facility] [address] [place], [address] FERRITIN Collected: 12/15/2017 Status: F Source: [place] 6:23 AM [facility] REPOSITORY TYPE CODE TESTS RESULT OUT OF RANGE REFERENCE UNITS LAB L503.6550 26-388 ng/mL Normal FERRITIN 145 Performed By: #### L503.6550 #### [facility] [address] [place], [address] VITAMIN B12 Collected: 12/15/2017 Status: F Source: [place] 6:23 AM [facility] REPOSITORY TYPE CODE TESTS RESULT OUT OF REFERENCE UNITS RANGE LAB L503.0105 211-911 pg/mL High Vitamin B12 > 2000 Performed By: #### L503.0105 #### [facility] [address] [place], [address] IRON+IRON BINDING Collected: 12/15/2017 Status: F Source: [facility] 6:23 AM [facility] REPOSITORY Order Comment: Comments: ok to add on TYPE CODE TESTS RESULT OUT OF RANGE REFERENCE UNITS LAB L503.6075 250-450 ug/dL Low TIBC 159 LAB L503.6150 65-175 ug/dL Low IRON 62 LAB L503.6250 15.0-55.0 % IRON Normal SATURATION 39.0 Performed By: #### L503.6030, L506.0250 #### [facility] [address] [place], [address] FOLATES, (FOLIC ACID) Collected: 12/15/2017 Status: F Source: [place] 6:23 AM [facility] REPOSITORY Order Comment: Comments: ok to add on TYPE CODE TESTS RESULT OUT OF RANGE REFERENCE UNITS LAB L506.0250 3.1-55.4 ng/mL Normal FOLATES 44.60 Performed By: #### L503.6030, L506.0250 #### [facility] [address] [place], [address] EMERGENCY DEPARTMENT Observed: 12/15/2017 Status: F Source: [place] SUMMARY 1:15 AM [facility] REPOSITORY [facility] Medical Records Department [address] [place] [address] Emergency Department Summary 12/14/17 2254 MR#: [id number] Acct: [id number] Name: FRANK RIVERA Rep #: [id number] : 1955 62 From: Loki Chawla MD PCP: Gracy Cuellar DO Status: ADM IN - ER Visit Summary Date of Service: 12/14/17 Chief Complaint: [] Low hemoglobin History of Present Illness: The patient is a 62 M complaining of low hemoglobin for last couple days. Checked on an outpatient routine blood lab. It was 7.9. Back in October his blood count was 11.4. Patient denies any symptoms. No blood in the stool. He has a history of remote GI bleeds. Last one was in July 2016. He does not notice any bleeding like that. He has chronic anemia due to a Min-en-Y surgery in 1995. He is iron deficient and does not absorb iron. He has required transfusions remotely. He had iron infusions last year but none this year. Physical Examination: [] Vital signs reviewed General: Well-nourished well-developed Head: Normocephalic atraumatic Eyes: Pupils equal round and reactive to light extraocular movements intact ENT: TMs clear no hemotympanum no trauma Neck: Nontender full range of motion Cardiovascular: Regular rate rhythm no murmurs normal S1-S2 Respiratory: No distress clear to auscultation bilaterally chest nontender Abdomen: Soft nontender nondistended normal bowel sounds no masses Back: Nontender no CVA tenderness Extremities: Nontender active range of motion 4 extremities no trauma. 1+ lower extremity edema the ankles Skin: Normal color no trauma very mild petechiae in the lower legs in the calves and ankles. None elsewhere. Neuro alert oriented cranial nerves II through XII intact normal strength sensation reflexes Test Results: [] Emergency Department Course and Treatment: [] Patient is stable. Lab work obtained. Lab work shows hemoglobin 7.5. Hematocrit 23.7. Platelets stable at 132. Chemistries normal except potassium 5.4. Chloride 114. Creatinine is 4.1 BUN 70. Calcium 7.9. At 1.6. PTT is elevated for this 52.2. School stool guaiac showed brown stool and it was positive. Type and screen pending. Patient given IV fluids. At this time it appears he has nephrotic syndrome with acute renal insufficiency and acute anemia. Is unclear the cause at this time. I have a low suspicion for hemolytic uremic syndrome. Patient has no neurologic abnormalities to suggest TTP. Has no fevers as well. The stool that he had in his vault was brown. There was no dark color to it to suspect an occult GI bleed. The patient stated that he sometimes gets worse from sitting for a long time as this could explain it. However he will be admitted for further evaluation and treatment of the above. Treatment Plan: [] Disposition: [] Impression: [] Renal failure-acute Acute anemia Mild hyperkalemia Positive fecal occult blood test This note was generated with [employer] dictation software. It may contain incorrect words, spelling, and punctuation that were not noted in review of the chart prior to signing ED Disposition - Plan for ED Patient: Disposition: Acute Care Hospital [facility] Chief Complaint: Abn Labs What to do if you have Problems For any increased pain, shortness of breath, bleeding, nausea or vomiting, chest pain, or any unexpected problems, contact your Primary Care Provider. Call [facility] ([phone]) or report to the closest Emergency Room. Call 911 if necessary. 12/15/17 0115 <Electronically signed by Loki Chawla MD> Date Loki Chawla MD Cosigner Signature (If Indicated): Date CC: Gracy Cuellar DO URINE SODIUM Collected: 12/15/2017 Status: F Source: LUX 12:40 AM [facility] REPOSITORY TYPE CODE TESTS RESULT OUT OF RANGE REFERENCE UNITS LAB L501.5500 Not Establ. mmol/L Normal UR NA 54 Performed By: #### L501.5500, L501.7300 #### [facility] [address] [place], [address] OSMOLALITY, URINE Collected: 12/15/2017 Status: F Source: [place] 12:40 AM [facility] REPOSITORY TYPE CODE TESTS RESULT OUT OF RANGE REFERENCE UNITS LAB L501.7400 mOsm/KG Normal 398 OSMOLALITY,U R Result Comment: OSMOLALITY URINE REFERENCE INTERVALS 24-hour Urine 300 - 900 mOsm/kg Random Urine 50 - 1400 mOsm/kg After 12 Hr fluid restriction >850 mOsm/kg Performed By: #### L501.7400 #### [facility] [address] [place], [address] URINALYSIS, COMPLETE Collected: 12/15/2017 Status: F Source: [place] 12:40 AM [facility] REPOSITORY Order Comment: How was Urine Obtained? CLEAN CATCH TYPE CODE TESTS RESULT OUT OF RANGE REFERENCE UNITS LAB L400.3000 Yellow COLOR Normal Bridget LAB L400.3050 Clear Sl Normal CLARITY Cldy LAB L400.3200 Normal mg/dl Normal GLUCOSE, UR Normal LAB L400.3300 Negative mg/dL Normal BILIRUBIN URINE Negative LAB L400.3400 Negative mg/dl Normal KETONE UR Negative LAB L400.3465 1.002-1.030 Normal SP.GR. DIPSTX 1.010 LAB L400.3550 5.0 - 8.0 pH UR Normal 5.0 LAB L400.3600 Negative mg/dl High PROT DIPSTX 100 LAB L400.3700 Normal mg/dl High 4 UROBILI LAB L400.3750 Negative Normal NITRITE UR Negative LAB L400.3780 Negative /ul High OCCULT BLOOD-UR 250 LAB L400.3800 Negative /ul High LEUK 25 ESTERASE LAB L400.4050 0-5 /hpf WBC Normal 0-5 SEEN LAB L400.4100 0-5 /hpf Normal RBC-UA 50-100 SEEN LAB L400.4150 0-5 /hpf SQUAM 0 Normal EPI SEEN LAB L400.4300 None Seen /hpf 0 Normal BACTERIA SEEN LAB L400.4350 <or=2+ /hpf 0 Normal MUCUS, URINE SEEN LAB L400.5200 None Seen /hpf Normal YEAST-URINE RARE Performed By: #### L400.0001 #### [facility] [address] [place], [address] HISTORY AND PHYSICAL Observed: 12/15/2017 Status: F Source: [place] EXAM 12:16 AM [facility] REPOSITORY [facility] Medical Records Department [address] [place] [address] History and Physical 12/15/17 0007 MR#: [id number] Acct: [id number] Name: FRANK RIVERA Rep #: [id number] : 1955 62 From: Joie Randle MD PCP: Gracy Cuellar DO Status: ADM IN Y Location: [facility] [place] [id number] Problem List (1) Nicotine abuse Status: Chronic (2) Premature atrial contractions Status: Chronic (3) Left ventricular hypertrophy Status: Chronic (4) Presence of permanent cardiac pacemaker Status: Chronic Comment: [employer]; (5) Mitral valve insufficiency and aortic valve insufficiency Status: Chronic (6) Sick sinus syndrome Status: Chronic Comment: S/P permanent pacemaker 05/13/2017; (7) S/P aortic valve replacement Status: Chronic Comment: 27mm [employer] Tirfecta pericardial valve (8) SOB (shortness of breath) Status: Acute (9) Hyperlipidemia Status: Chronic Qualifiers: (10) Ventricular hypertrophy Status: Chronic (11) ARF (acute renal failure) Status: Acute History of Present Illness Date of Admission: 12/15/17 Chief Complaint: fatigue and sob The patient is a 62 year old male patient with a significant past medical history of stroke, aortic valve replacement and pacemaker who presents to the ER with labs that are abnormal from outpatient clinical setting. BUN is 70 and creatinine is 4.12 and hemoglobin is 7.5. He has no history of kidney failure. 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 He has felt more fatigued and short of breath over the past several days. 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 He will be admitted for further management and nephrology consult. Past Medical History Past Medical History (Chronic Problems): Chronic Problems (Last Reviewed 11/16/17 @ 08:36 by Suzanne Ferris) Nicotine abuse (Chronic) Premature atrial contractions (Chronic) Left ventricular hypertrophy (Chronic) [facility] current use of 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 (Chronic) Presence of permanent cardiac pacemaker (Chronic 05/13/17) [employer]; Mitral valve insufficiency and aortic valve insufficiency (Chronic) Sick sinus syndrome (Chronic) S/P permanent pacemaker 05/13/2017; S/P aortic valve replacement (Chronic 05/07/17) 27mm [employer] Tirfecta pericardial valve Aortic stenosis (Chronic) S/P valve replacement with 27mm 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) with 40 mm [employer] with Dr. Land of [facility] 05/07/2017; [facility] current use of 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 (Chronic) Z79.01 Atrial fibrillation (Acute) I48.91 Sinus bradycardia (Acute) R00.1 Presence of permanent cardiac pacemaker (Chronic) Onset Date: 05/13/17 Z95.0 [employer]; Mitral valve insufficiency and aortic valve insufficiency (Acute) I08.0 Sick sinus syndrome (Acute) I49.5 S/P permanent pacemaker 05/13/2017; SOB (shortness of breath) (Acute) R06.02 Aortic stenosis (Chronic) I35.0 S/P valve replacement with 27mm [employer] 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 Richi Tirfecta pericardial valve History of carpal tunnel surgery Z92.89 History of gastric bypass Z98.84 History of knee surgery Z98.890 Smoking Status: Current every day smoker - *Family History Maternal Family History: Family History (Last Reviewed 11/16/17 @ 08:36 by Suzanne Ferris) Father CAD (coronary artery disease) Mother CAD (coronary artery disease) Thyroid disorder Sister Thyroid cancer History Items: No pertinent history Review of Systems Constitutional: Reports: Malaise, Weakness, Fatigue. Denies: Chills, Fever, Weight Change HEENT: Denies: Head Aches, Sinus Congestion, Sinus Drainage Cardiovascular: Denies: Chest Pain, Palpitations Respiratory: Reports: Shortness of breath at rest. Denies: Cough, Sputum production Gastrointestinal: Denies: Abdominal Pain, Nausea, Vomiting Genitourinary: Denies: Dysuria Musculoskeletal: Denies: Joint Pain, Joint Tenderness Skin: Denies: Rash, Wounds Neurological: Denies: Numbness, Tingling, Focal weakness Psychiatric: Reports: Anxiety. Denies: Depression, Homicidal Ideations, Suicidal Ideations Hematologic/ Lymphatic: Denies: Easy Bruising, Easy Bleeding VTE Information - Inpt Only VTE Present on Admission: No VTE Mechan Device Prophylaxis: SCD's VTE Pharm Prophylaxis ordered?: No Patient Problems: Active and Suspected Problems (Last Reviewed 11/16/17 @ 08:36 by Suzanne Ferris) ARF (acute renal failure) (Acute) - Physical Exam General: Alert, Oriented x3, Cooperative HEENT: Atraumatic, Normocephalic Neck: Supple, No JVD, Negative Carotid Bruits Lungs: Clear to auscultation, Normal air movement, No rhonchi, No wheeze, No rales Cardiovascular: Regular rate, Regular Rhythm, Normal S1, Normal S2 Abdomen: Bowel Sounds Present, Soft, Non Tender Extremities: Capillary Refill Less than 3 Seconds, Edema - 2+ lower ext edema Skin: No rashes, No breakdown Musculoskeletal: No Tenderness to Palpation of Joints or Extremities Neurological: Neuro grossly intact Psych/Mental Status: Normal Affect, Appropriate Vital Signs Temp Pulse Resp BP Pulse Ox 98.6 F 78 22 H 124/65 H 97 12/14/17 21:43 12/14/17 21:43 12/14/17 23:43 12/14/17 21:33 12/14/17 23:43 Oxygen Flow Rate (L/min) 2 Oxygen Delivery Method Nasal Cannula Weight: 233 lb 11.04 oz Body Mass Index (BMI) 28.4 Finger Stick Blood Glucose 82 Microbiology Past 72 Hours 12/14/17 23:05 Stool Occult Blood (PAWAN) - Final Stool Occult Blood Positive Laboratory Tests Past 24 Hrs WBC 4.5 RBC 2.37 L Hgb 7.5 L Hct 23.7 L Assessment/Plan All Active Problems (Last Reviewed 11/16/17 @ 08:36 by Suzanne Ferris) ARF (acute renal failure) (Acute) Acute CVA (cerebrovascular accident) (Acute 10/27/17) 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) Atrial fibrillation (Acute) Sinus bradycardia (Acute) SOB (shortness of breath) (Acute) Atrioventricular block, type I (Acute) Premature ventricular contraction (Acute) Abnormal EKG (Acute) Bruit of left carotid artery (Acute) Acute conditions - acute renal failure - anemia Plan - admit to general medical floor - consult nephrology - bmp, cbc, PSA, urine sodium, urine osmolarity, serum osmolarity - continue routine home medications - consider PRBC transfusion in am - SCDs for DVT prophylaxis Code Visit Inpatient E AND M: [id number] Init Hosp L3 12/15/17 0016 <Electronically signed by Joie Randle MD> Date Joie Randle MD Cosigner Signature: Date (if applicable) CC: Gracy Cuellar DO; Joie Randle MD Signed OSMOLALITY, SERUM Collected: 12/15/2017 Status: F Source: LUX 12:00 AM [facility] REPOSITORY TYPE CODE TESTS RESULT OUT OF RANGE REFERENCE UNITS LAB L501.7300 280-301 mOsm/KG High 315 OSMOLALITY,S ER Performed By: #### L501.5500, L501.7300 #### [facility] [address] [place], [address] US-KIDNEY AND BLADDER Observed: 12/15/2017 Status: F Source: [place] IMPORT 12:00 AM [facility] REPOSITORY Images were obtained outside of [facility] [id number] TYPE AND SCREEN Collected: 12/14/2017 Status: F Source: [place] 11:18 PM [facility] REPOSITORY Order Comment: Reason for Type AND Screen/Red Cells: ANEMIA TYPE CODE TESTS RESULT OUT OF RANGE REFERENCE UNITS LAB B10.0800 A Normal BLOOD TYPE GEL POSITIVE LAB B100.4000 Normal Antibody NEGATIVE Screen Performed By: #### B101.7450 #### [facility] [address] [place], [address] RC Collected: 12/14/2017 Status: F Source: [place] 11:18 PM [facility] REPOSITORY TYPE CODE TESTS RESULT OUT OF REFERENCE UNITS RANGE LAB U100.0000 [id number] TRANSFUSED PRODUCT: T AND S with Crossmatch, Red Cells COUNT: 2 Performed By: #### U100.0000 #### [facility] - refer to report for specific site RC Collected: 12/14/2017 Status: F Source: [place] 11:18 PM [facility] REPOSITORY TYPE CODE TESTS RESULT OUT OF REFERENCE UNITS RANGE LAB U100.0000 [id number] TRANSFUSED PRODUCT: T AND S with Crossmatch, Red Cells COUNT: 1 Performed By: #### U100.0000 #### [facility] - refer to report for specific site PPHR Collected: 12/14/2017 Status: F Source: [place] 11:18 PM [facility] REPOSITORY TYPE CODE TESTS RESULT OUT OF REFERENCE UNITS RANGE LAB U100.0700 [id number] TRANSFUSED PRODUCT: Platelets Apheresis PPHR LR SD COUNT: 1 Performed By: #### U100.0700 #### [facility] - refer to report for specific site Observed: 12/14/2017 Status: C Source: [place] STOOL OCCULT BLOOD 11:05 PM [facility] IFOB REPOSITORY STOB iFOB * This is an amended result. * A prior result that was reported as final has been changed. 12/15/17 0003 by MARIZA Previously reported as: ENTERED ORGANISM TAB Occult Blood Positive ORGANISM 1: OCCULT BLOOD POSITIVE Performed By: #### M100.7900 #### [facility] [address] [place], [address] CBC W/DIFF, AUTOMATED Collected: 12/14/2017 Status: F Source: [place] 10:20 PM [facility] REPOSITORY TYPE CODE TESTS RESULT OUT OF RANGE REFERENCE UNITS LAB L100.1000 4.4-11.0 K/mm3 Normal WBC 4.5 LAB L100.1200 4.6-6.2 M/mm3 Low RBC 2.37 LAB L100.1300 13.0-16.5 g/dl Low HGB 7.5 LAB L100.1400 40-54 % Low HCT 23.7 LAB L100.1500 80-94 fL High MCV 100.0 LAB L100.1600 27.0-32.0 pg Normal MCH 31.6 LAB L100.1700 32-36 g/gl Low MCHC 31.6 LAB L100.1810 11.6-14.6 % High RDW CV 22.7 LAB L100.1820 35.1-43.9 fl High RDW SD 83.0 LAB L100.1900 150-450 K/mm3 Low PLT 132 LAB L100.2000 6.2-12.0 fl Normal MPV 9.9 LAB L100.2100 47-70 % Normal NEUT% 65.8 LAB L100.2200 19-41 % Normal LY% 27.8 LAB L100.2300 0-10 % Normal MONO% 5.8 LAB L100.2400 0-5 % Normal EO% 0.2 LAB L100.2500 0-1 % Normal BASO% 0.2 LAB L100.2550 0.0-0.9 % Normal IM GRAN % 0.200 Result Comment: IG% - Immature Granulocytes (promyelocytes, myelocytes and metamyelocytes) > 1% indicates that a LEFT SHIFT is Present. LAB L100.2620 2.0-7.7 X10 3/uL Normal Absolute Neut 3.0 LAB L100.2720 0.83-4.51 X10 3/ul Normal Absolute Lymph 1.25 LAB L100.4500 Normal SMEAR COMMENT SCANNED Result Comment: 1+ ANISOCYTOSIS Performed By: #### L100.0100 #### [facility] [address] [facility] [place], [place], [address] BASIC METABOLIC Collected: 12/14/2017 Status: F Source: [place] PROFILE (BMP) 10:20 PM [facility] REPOSITORY TYPE CODE TESTS RESULT OUT OF RANGE REFERENCE UNITS LAB L501.0100 74-106 mg/dL Normal GLU 90 Result Comment: Please note revised GLUCOSE reference range effective 2017. LAB L501.1000 7-18 mg/dL High BUN 70 LAB L501.1100 0.70-1.30 mg/dL High CREAT,SERUM 4.12 Result Comment: The validity of the calculated GFR AND GFRAA in patients over 70 years has not been determined. Clinical correlation is essential. LAB L501.1110 >60 mL/min Low EST GFR 16 Result Comment: Non- GFR Calc LAB L501.1115 >60 mL/min Low EST GFR - AA 19 Result Comment: GFR Calc LAB L501.1255 ml/min Normal Estimated CRCL 23.12 LAB L501.1300 10-20 RATIO Normal BUN/CRE 17.0 LAB L501.2200 8.5-10 mg/dL Low .1 CA 7.9 LAB L501.5300 136-14 mmol/L Normal 5 NA 140 LAB L501.5600 3.5-5. mmol/L High 1 K 5.4 LAB L501.5900 98-107 mmol/L High CL 114 LAB L501.6100 21.0-3 mmol/L Low 2.0 CO2 20.0 LAB L501.6200 5-15 Normal GAP 6 Performed By: #### L500.2500 #### [facility] [address] [facility] [place], [place], [address] PROTHROMBIN TIME W/INR Collected: 12/14/2017 Status: F Source: LUX 10:20 PM [facility] REPOSITORY TYPE CODE TESTS RESULT OUT OF RANGE REFERENCE UNITS LAB L300.4150 11.7-14.9 SECONDS High PROTIME 18.9 LAB L300.4200 Normal INR 1.6 Performed By: #### L300.3900, L300.4310 #### [facility] [address] [place], [place], [id number] PARTIAL THROMBOPLAST Collected: 12/14/2017 Status: F Source: LUX TIME 10:20 PM [facility] REPOSITORY TYPE CODE TESTS RESULT OUT OF REFERENCE UNITS RANGE LAB L300.4310 24.1-36.2 Seconds High PTT 52.2 Performed By: #### L300.3900, L300.4310 #### [facility] [address] [place], [place], [id number] CBC-COMPLETE BLOOD CNT Collected: 12/12/2017 Status: F Source: LUX NO DIFF 8:44 AM [facility] REPOSITORY TYPE CODE TESTS RESULT OUT OF RANGE REFERENCE UNITS LAB L100.1000 4.4-11.0 K/mm3 Normal WBC 4.7 LAB L100.1200 4.6-6.2 M/mm3 Low RBC 2.55 LAB L100.1300 13.0-16.5 g/dl Low HGB 7.9 LAB L100.1400 40-54 % Low HCT 25.6 LAB L100.1500 80-94 fL High MCV 100.4 LAB L100.1600 27.0-32.0 pg Normal MCH 31.0 LAB L100.1700 32-36 g/gl Low MCHC 30.9 LAB L100.1810 11.6-14.6 % High RDW CV 22.7 LAB L100.1820 35.1-43.9 fl High RDW SD 82.5 LAB L100.1900 150-450 K/mm3 Low PLT 123 LAB L100.2000 6.2-12.0 fl Normal MPV 9.4 Performed By: #### L100.0500, L100.4500 #### [facility] [address] [place], [place], [id number] DIFFERENTIAL COMMENT Collected: 12/12/2017 Status: F Source: LUX 8:44 AM [facility] REPOSITORY TYPE CODE TESTS RESULT OUT OF RANGE REFERENCE UNITS LAB L100.4500 Normal SMEAR COMMENT SCANNED Result Comment: 2+ HYPOCHROMIA RARE POLYCHROMASIA RARE ANISOCYTOSIS Performed By: #### L100.0500, L100.4500 #### [facility] [address] [place], [address] THYROID STIM HORMONE Collected: 12/12/2017 Status: F Source: LUX (TSH) 8:44 AM [facility] REPOSITORY TYPE CODE TESTS RESULT OUT OF RANGE REFERENCE UNITS LAB L501.9520 0.358-3.74 uIU/mL Normal TSH 2.04 Performed By: #### L501.9520, L506.0400, L503.6620 #### [facility] [address] [place], [address] T4 FREE DIRECT Collected: 12/12/2017 Status: F Source: LUX 8:44 AM [facility] REPOSITORY TYPE CODE TESTS RESULT OUT OF RANGE REFERENCE UNITS LAB L506.0400 0.76-1.46 ng/dL Normal T4 FREE 1.26 DIRECT Performed By: #### L501.9520, L506.0400, L503.6620 #### [facility] [address] [place], [address] BNP,B-TYPE NATRIURETIC Collected: 12/12/2017 Status: F Source: LUX PEPTIDE 8:44 AM [facility] REPOSITORY TYPE CODE TESTS RESULT OUT OF RANGE REFERENCE UNITS LAB L503.6620 0-100 pg/mL High B-TYPE 1001.2 KEIRA PEP Performed By: #### L501.9520, L506.0400, L503.6620 #### [facility] [address] [place], [address] PACEMAKER CHECK Observed: 11/16/2017 Status: F Source: LUX 10:54 AM [facility] REPOSITORY [facility] [address] [place] [address] Pacemaker Check Date of Service: 11/16/17 1024 MR#: [id number] Acct: [id number] Name: FRANK RIVERA Rep #: [id number] : 1955 From: Radha Guzman Age/Sex: 62/M Location[place] [facility] Status: Signed Billing Codes PM Device Codes: PM Dev Prog Eval, Dual 11/16/17 1025 <Electronically signed by Radha Guzman > Date Radha Guzman 11/16/17 1054<Electronically signed by Joie Whitaker MD> Cosigner Signature: Date (if applicable) Joie Whitaker MD CC: CARDIOLOGY VISIT Observed: 11/16/2017 Status: F Source: [place] REPORT 10:20 AM [facility] REPOSITORY [facility] [address] [place] [address]. [address] [place], [place] [address] OFFICE VISIT Date of Service: 11/16/17 MR#: [id number] Acct: [id number] Name: FRANK RIVERA Rep #: [id number] : 1955 Provider: Joie Whitaker MD Age/Sex: 62/M Location[place] [facility] Status: Signed HPI HPI Details: FRANK RIVERA, is a 62 M who presents to the office today for for outpatient cardiovascular follow-up. He states that his most recent concern has been a CVA. He was evaluated at [facility] twice and subsequently at . He states the etiology is unclear. He underwent a variety of noninvasive studies both at [facility] and at . This included an echocardiogram at . He believes the results were unremarkable as he did not require additional cardiovascular evaluation or care. He states originally there was concerns that he may need thrombolysis or some type of catheter based intervention. However he notes no such procedures occurred. He was treated medically including the addition of 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 therapy. He states he is recuperating but still has some residual deficits with respect to facial droop. In the meantime he has had no concerning chest discomfort or difficulty breathing at rest or with exertion. There has been no episodes of overt CHF or pulmonary edema. There has been no near syncope or syncope. He has not noted any obvious cardiac dysrhythmias. He states that his rhythm/pacemaker was interrogated while at . Again to the best of his knowledge there was no obvious findings. Intake Vital Signs11/16/17 Height 6 ft 4 in 11/16/17 Weight: 225 lb 11/16/17 Body Mass Index (BMI) 27.3 11/16/17 Blood Pressure 140/84 Intake Visit Reasons: 6 M FU Allergies Penicillins Allergy (Verified 11/16/17 08:34) Hives Medications ascorbic acid (vitamin C) 500 mg capsule 500 mg PO QDAY ea 03/26/17 [History Confirmed 11/16/17] levothyroxine 200 mcg tablet 200 mcg PO QDAY tab 03/26/17 [History Confirmed 11/16/17] pantoprazole 40 mg tablet,delayed release 40 mg PO BID tab 03/26/17 [History Confirmed 11/16/17] cyanocobalamin (vit B-12) 500 mcg tablet 500 mcg PO QDAY 03/27/17 [History Confirmed 11/16/17] aspirin 81 mg tablet,delayed release 81 mg PO QDAY tab 05/18/17 [History Confirmed 11/16/17] magnesium oxide 400 mg capsule 400 mg PO QDAY cap 05/18/17 [History Confirmed 11/16/17] multivitamin tablet 1 tab PO QDAY 05/18/17 [History Confirmed 11/16/17] metoprolol tartrate 25 mg tablet 12.5 mg PO BID tab 06/01/17 [History Confirmed 11/16/17] apixaban 5 mg tablet 5 mg PO BID 06/08/17 [History Confirmed 11/16/17] hydralazine 25 mg tablet 25 mg PO Q8H #90 tab 06/24/17 [Rx Confirmed 11/16/17] Acetaminophen [Tylenol Extra Strength] 500 mg PO Q4H PRN PRN 10/27/17 [History Confirmed 10/27/17] atorvastatin 40 mg tablet 80 mg PO QDAY tab 11/16/17 [History] cholecalciferol (vitamin D3) 2,000 unit tablet 2,000 unit PO DAILY 11/16/17 [History Confirmed 11/16/17] [facility] Medical History Acute CVA (cerebrovascular accident) (Acute 10/27/17) 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) 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) Atrial fibrillation (Acute) Sinus bradycardia (Acute) Presence of permanent cardiac pacemaker (Chronic 05/13/17) Mitral valve insufficiency and aortic valve insufficiency (Acute) Sick sinus syndrome (Acute) SOB (shortness of breath) (Acute) Aortic stenosis (Chronic) 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, type I (Acute) Premature ventricular contraction (Acute) Abnormal EKG (Acute) Hyperlipidemia (Acute) Ventricular hypertrophy (Acute) Bruit of left carotid artery (Acute) Anemia, iron deficiency (Acute) Hypothyroidism (Acute) Retinal embolus (Acute) Tobacco abuse (Acute) Surgical History S/P aortic valve replacement (Chronic 05/07/17) History of carpal tunnel surgery (Resolved) History of gastric bypass (Resolved) History of knee surgery (Resolved) Family History Father CAD (coronary artery disease) Mother CAD (coronary artery disease) Thyroid disorder Sister Thyroid cancer Social History Smoking Status: Never smoker how long ago did patient quit smokin04/23/2017 alcohol intake: current alcohol intake frequency: a few times a month Alcohol type: hard liquor substance use type: does not use caffeine: Yes Type: coffee what type of physical activity do you participate in: none seatbelt use: always do you feel safe at home: Yes ROS Const Const: Positive for fatigue (increased) and headache(s) (constant HERNANDEZ since eye stroke, dull); negative for weakness, weight gain, weight loss, frequent falls or excessive sweating Eyes Eyes: Negative for change in vision, blurry vision or transient loss of vision ENT ENT: Positive for balance problems (slightly unsteady) and headache(s) (constant HERNANDEZ since eye stroke, dull); negative for dizziness Cardio Chest Pain: No Palpitations: No Edema: Bilateral (slight bilat ankle) Muscle aches with walking: None Resp Respiratory: Positive for SOB with activity (slight); negative for SOB at rest GI GI: Negative vomiting or vomiting blood/hematemesis : Negative for hematuria Musc Musc: Positive for balance problems (slightly unsteady); negative for muscle aches/ myalgia, muscle weakness or joint pain Skin Skin: Negative non-healing lesions or rash Neuro Neuro: Positive for lightheadedness (slight) and headache(s) (constant HERNANDEZ since eye stroke, dull); negative for weakness, blurry vision, dizziness, frequent falls or orthostatic symptoms Marquis Hematologic/Lymphatic: Negative for easy bleeding Endo Endo: Positive for fatigue (increased); negative for excessive sweating Psych Psych: Negative for anxiety or depression Allergy Allergy/Immunology: Negative for hives, Negative for rash Cardiology Exam Const Appearance: cooperative, healthy appearing, comfortable, no acute distress and well groomed Nutritional Appearance: average body habitus Orientation: alert, awake and oriented x3 Head Head: normal to inspection, normocephalic and atraumatic Ears: hearing grossly normal bilaterally Nose: external nose normal Mouth: oral mucosae normal Teeth and gingiva: fair dentition Eyes Eyelids: eyelids normal Conjunctivae: conjunctivae normal Pupils: PERRL EOM: EOM intact bilaterally Neck Neck: no JVD and normal visual inspection Carotids: normal carotid upstroke and bruit Left Chest Chest inspection: normal inspection of the chest, normal respiratory effort, symmetric chest movement and midline sternotomy incision Auscultation: Bilateral: Clear to Auscultation Cardio Palpation: normal PMI Rate: regular rate Rhythm: regular rhythm Heart sounds: S1 normal and S2 normal; negative rub or gallop Murmur: Grade 2/6, soft, mid systolic and apex GI GI: normal to inspection Neuro General: alert, awake and oriented x3 Skin Skin: no rashes or lesions noted and other Both surgical incision and pacemaker incision are well-healed. No drainage is noted. Surrounding skin of both incisions is pink and cool to touch. Extremities Pulses: Normal: Right Posterior Tibial Pulse, Left Posterior Tibial Pulse, Right Radial Pulse, Left Radial Pulse Lower Extremity Edema: Trace: Bilateral Psych Psychological: normal affect Supplemental Info His last transthoracic echocardiogram at [facility] was on 12/19/2016. Interpretation Summary Left ventricular systolic function is normal. The estimated ejection fraction is 65 %. Moderate to severe concentric left ventricular hypertrophy. The left atrium is moderately enlarged. The right atrium is mildly enlarged. Mild (1+) mitral valve insufficiency. Trivial tricuspid valve insufficiency. Severe aortic stenosis. Trivial aortic valve insufficiency. Right ventricular systolic pressure estimated to be 34 mmHg. He had a transesophageal echocardiogram at [facility] on 02/17/2017. Interpretation Summary Left ventricular systolic function is normal. The estimated ejection fraction is 65 %. The left atrium is mildly enlarged. There is no sponatenous contrast in the left atrium. No thrombus is detected in the left 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. The right atrium is mildly enlarged. Mild-Moderate (1-2+) mitral valve insufficiency. Trivial tricuspid valve insufficiency. Moderately - Severe Calcific Aortic Valve Stenosis (AV area: by planimetry: 1.1 cm Mild-Moderate (1-2+) eccentric aortic valve insufficiency. Bubble contrast study negative for right to left interatrial shunt. Mild atherosclerosis of the aortic arch. He had a diagnostic cardiac catheterization at [facility] on 04/10/2017. CORONARY ANGIOGRAPHY DOMINANCE: Co- Dominant LEFT HEART ASSESSMENT Left Ventricular Ejection Fraction: Not assessed LEFT MAIN: Angiographically normal LEFT ANTERIOR DECENDING ARTERY: PROX LAD: Mild luminal irregularities CIRCUMFLEX ARTERY: Angiographically normal RIGHT CORONARY ARTERY: Mild luminal irregularities VALVE FINDINGS: Aortic Valve Calcification - severe He has a permanent pacemaker in place. 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 At that time he received a 27 mm trifecta pericardial valve and a left 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 ligation with a 40 mm atrial clip Assessment AND Plan 1. S/P aortic valve replacement Z95.[address] Richi Tirfecta pericardial valve Plan At the present time he appears to be stable by history and exam. A copy of his echocardiogram will be requested for continuity of care purposes. In the interim he will continue AHA antibiotic prophylaxis. He will continue to be followed. Over time he will have follow-up echocardiograms as deemed appropriate. 2. Sick sinus syndrome I49.5 S/P permanent pacemaker 05/13/2017; Plan He does have a history of an underlying sick sinus syndrome. He is status post permanent pacemaker placement. He is continuing to be followed. He is continuing medical therapy. His permanent pacemaker is going to be interrogated as deemed. 3. Presence of permanent cardiac pacemaker Z95.0 [employer]; Plan His pacemaker in the past has been reported as functioning appropriately. Certainly if his interrogation demonstrates any obvious concerns they will need to be addressed appropriately. 4. 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 ligation with 40 mm At[employer]ure Atriclip with Dr. Land of [facility] 05/07/2017; Plan He has had a history of a left 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 ligation. Hopefully this will minimize the risk of any thromboembolic disease from any type of atrial dysrhythmias peer 5. Atherosclerosis of [place] coronary artery of [place] heart without angina pectoris I25.10 Plan He has not been found to have angiographically significant appearing CAD. He did not require revascularization therapy. He will continue risk factor medical therapy. 6. Mixed hyperlipidemia E78.2 Plan He will continue medical therapy. A copy of his most recent lipid profile would be appreciated for continuity of care purposes 7. Bruit of left carotid artery R09.89 Plan He does have a left carotid artery bruit. He had carotid artery duplex studies performed in 2017 which suggested mild disease bilaterally. Is unclear whether this is the source of his CVA. A copy of his records will be requested for continuity of care purposes. Plan Detail Additional Comments Overall the present time he will continue his current medical management. He will continue to follow with his PCP for his neurologic issue. It would be recommended he be considered by his PCP for outpatient neurology follow-up as well based upon his questions regarding his CVA, results of testing, and his medical therapy with respect 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 therapy-and for how long. In the meantime copies of his records will be requested for cardiology continuity of care purposes. Thank you for allowing me to participate in the care of your patient. Please don't hesitate to call if any issues arise. This note was generated using a voice recognition system and there may be incorrect words, spelling or punctuation that were not noted when reviewing the office note prior to saving. Follow Up 11/16/17 (Copy of Records) 6 Months (PFM) Coding Level of Care Code Off vis,est,level 3 Diagnoses S/P aortic valve replacement Z95.2 Sick sinus syndrome I49.5 Presence of permanent cardiac pacemaker Z95.0 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 ligation Atherosclerosis of [place] coronary artery of [place] heart without angina pectoris I25.10 [place] vs. transplanted heart: [place] heart Mixed hyperlipidemia E78.2 Hyperlipidemia type: mixed hyperlipidemia Bruit of left carotid artery R09.89 Coding Level of Care Code Off vis,est,level 3 Diagnoses S/P aortic valve replacement Z95.2 Sick sinus syndrome I49.5 Presence of permanent cardiac pacemaker Z95.0 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 ligation Atherosclerosis of [place] coronary artery of [place] heart without angina pectoris I25.10 [place] vs. transplanted heart: [place] heart Mixed hyperlipidemia E78.2 Hyperlipidemia type: mixed hyperlipidemia Bruit of left carotid artery R09.89 11/16/17 1020 <Electronically signed by Joie Whitaker MD> Date Joie Whitaker MD Cosigner Signature: Date (if applicable) CC: Gracy Cuellar DO LIVER PROFILE Collected: 11/04/2017 Status: F Source: [place] 8:30 AM [facility] REPOSITORY TYPE CODE TESTS RESULT OUT OF RANGE REFERENCE UNITS LAB L501.1500 6.4-8.2 g/dL Normal T PROT 7.9 LAB L501.1800 3.2-5.0 g/dL Low ALB 2.5 LAB L501.1950 2.2-4.2 g/dL High GLOB 5.4 LAB L501.4100 15-37 U/L High AST 50 LAB L501.4305 45-117 U/L High ALK P 228 LAB L501.4405 16-61 U/L Normal ALT 39 LAB L501.4600 0.20-1.00 mg/dL Normal T BILI 0.60 LAB L501.4700 0.00-0.30 mg/dL High D BILI 0.37 Performed By: #### L500.3400, L500.4100 #### [facility] [address] [place], [address] LIPID PROFILE Collected: 11/04/2017 Status: F Source: [place] 8:30 AM [facility] REPOSITORY TYPE CODE TESTS RESULT OUT OF RANGE REFERENCE UNITS LAB L501.4900 200 mg/dL Normal CHOL 53 Result Comment: <200 mg/dL Desirable 200-240 mg/dL Borderline >240 mg/dL High Risk LAB L501.5000 mg/dL Normal TRIG 161 Result Comment: The drugs N-Acetylcysteine and Metamizole may falsely depress this assay. Serum Triglycerides Reference Interval Normal <150 mg/dL Borderline high 150 - 199 mg/dL High 200 - 499 mg/dL Very High > or = 500 mg/dL LAB L501.6400 mg/dL Low HDL 12 Result Comment: The drugs N-Acetylcysteine and Metamizole may falsely depress this assay. Reference Range HDL <40 mg/dL Low HDL Cholesterol HDL >or= 60 mg/dL High HDL Cholesterol LAB L501.6500 0-130 mg/dL Normal LDL 9 LAB L501.6600 5-40 mg/dL Normal VLDL 32 Performed By: #### L500.3400, L500.4100 #### [facility] [address] [facility] [place], [address] 12 LEAD ELECTROCARDIOGRAM Observed: 11/02/2017 Status: F Source: [place] 3:37 PM [facility] REPOSITORY [facility] Cardiovascular Services [address] [place] [address] 12 Lead EKG 10/27/17 1358 MR#: [id number] Acct: [id number] Name: FRANK RIVERA Rep #: [id number] : 1955 62 From: Carlin Wilde MD Attending Dr: Status: DEP ER Ordering Dr: Rocco Ayala MD Date: 10/27/17 Location: ED Sex: M C Admitted: Test Reason : NEURO Blood Pressure : / mmHG Vent. Rate : 060 BPM Atrial Rate : 441 BPM P-R Int : 254 ms QRS Dur : 144 ms QT Int : 466 ms P-R-T Axes : -16 067 055 degrees QTc Int : 466 ms Atrial-paced rhythm with prolonged AV conduction Right bundle branch block Abnormal ECG Confirmed by CARLIN WILDE MD ([id number]), editorial project manager CHAS WILHELM ([id number]) on 11/02/2017 3:37:18 PM Referred By: Gracy Cuellar Confirmed By:CARLIN WILDE MD 11/02/17 5186 Date Carlin Wilde MD CC: Rocco Ayala MD; Gracy Kip RAMSAY Signed DISCHARGE SUMMARY Observed: 10/29/2017 Status: COMPLETED Source: [place] 3:53 PM HOSPITALS REPOSITORY Send Summary: Discharge Summary Providers: Provider RoleProvider Name ? AttendingRain Segura Note Recipients: Rain Segura MD Discharge: Summary: Admission Date: .27-Oct-2017 20:14:00 Discharge Date: 29-Oct-2017 Attending Physician at Discharge: Rain Segura Admission Reason: stroke Final Discharge Diagnoses: Stroke Procedures: N/A Condition at Discharge: Satisfactory Disposition at Discharge: .Home Vital Signs: T PRBPSpO2 [id number]/7496% Date/Time10/29 12: 12: 12:5010/29 12:5010/29 12:50 Range(36.7C - 37.7C ) (60 - 112 ) (16 - 20 ) (123 - 137 )/ (68 - 79 ) (93% - 96% ) Highest temp of 37.7 C was recorded at 10/29 12:50 Physical Exam: Physical Exam: Constitutional: pt in NAD, alert and cooperative Eyes: clear sclera ENMT: mucous membranes moist, no apparent injury, no lesions seen Head/Neck: Neck supple, no apparent injury Respiratory/Thorax: Lungs CTA bilaterally, non-labored breathing, no cough, on RA Cardiovascular: Regular, rate and rhythm, no murmurs, normal S1 and S2 Gastrointestinal: Nondistended, soft, non-tender, BS present x 4 Musculoskeletal: no joint swelling, normal strength Extremities: normal extremities, no edema, contusions or wounds Neurological: alert and oriented x 3, speech clear, follows commands appropriately, cr. n. II-XII intact, sensation grossly intact, motor 5/5 throughout Skin: Warm and dry Hospital Course: 62 years old male transferred from outside hospital ED. He experienced dizziness 4 days ago on Thursday night. He felt slight slurred speech on Thursday. Thursday he had some blood work and sent to the ED. Work up was negative therefore he went home. Experienced worsening slurred speech and loss of temperature sensation of right hand yesterday and came to ED. 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 Has a left temporal headache. PMH Aortic valve Replacement Fe this year Pacemaker Gastric by pass 1995 Hospital Course: Admitted to Medicine Neurology consulted & rec add ASA 81 mg daily to his eliquis, add atorvastatin 80 mg daily TTE, HBA1C, lipid profile Speech consulted & rec regular diet/thin liquids PT/OT consulted & rec outpatient OT Patient discharged home Pt discussed with Dr. Des Segura, seen and examined. All labs, VS and previous plan of care reviewed. Discharge Information: and Continuing Care: Discharge Instructions: Activity: activity as tolerated. Nutrition/Diet: resume normal diet Follow Up Appointments: Follow-Up Appointment 01: Physician/Dept/Service: Primary Care Physician Reason for Referral: hospital follow up ,general health maintenance and medication refills Call to Schedule in: 1 week Discharge Medications: Home Medication hydrALAZINE 25 mg oral tablet - orally 3 times a day Synthroid 200 mcg (0.2 mg) oral tablet - 1 tab(s) orally once a day Protonix 40 mg oral delayed release tablet - orally 2 times a day metoprolol tartrate 25 mg oral tablet - 1 tab(s) orally 2 times a day Eliquis 5 mg oral tablet - 1 tab(s) orally 2 times a day aspirin 81 mg oral tablet, chewable - 1 tab(s) orally once a day atorvastatin 80 mg oral tablet - 1 tab(s) orally once a day PRN Medication Lab Results - Pending: Antithrombin III Assay Drawn at 28-Oct-2017 12:17:00 Protein C Functional Assay Drawn at 28-Oct-2017 12:17:00 Free Protein S Ag Drawn at 28-Oct-2017 12:17:00 Radiology Results - Pending: None Electronic Signatures: Leslie Jolley (PROFESSIONAL [employer]-DIRECTOR OF INDUSTRIAL RELATIONS) (Signed 29-Oct-2017 16:05) Authored: Send Summary, Summary Content, Ongoing Care, Signature/Cosignature/Attestation Last Updated: 29-Oct-2017 16:05 by Leslie Jolley (PROFESSIONAL [employer]-DIRECTOR OF INDUSTRIAL RELATIONS) DISCHARGE PROFILE2 Observed: 10/29/2017 Status: UNK Source: [place] 12:45 PM HOSPITALS REPOSITORY Discharge Orders: Anticipated Discharge Date: ? Anticipated Discharge [id number] Problem List: Admitting Dx: ? Stroke: Catalog Name: Cerebral infarction, unspecified Hospital Providers: Provider RoleProvider Name ? Rain Dunaway ? Ki Moore Activity: activity as tolerated. Diet: ? Dietresume normal diet Call Provider If (Homegoing Patients): Breathing faster than normal. Fever of 100.4 F (38 C) or higher. Chills. Urinating less than normal, over 1 day. Acting very sleepy and difficult to awaken. Vomiting (throwing up) and not able to eat or drink for 12 hours. Any new concerning symptoms. Provider FINAL REVIEW of Orders: Final Review: ? Final Review of Medication Reconciliation and Orders Completedby ? Reviewing ProviderWHITNEY Blood at 29-Oct-2017 12:50:44 Appointments: Follow-Up Appointment 01: ? Physician/Dept/ServicePrformerly [facility] ? Reason for Referralhospital follow up ,general health maintenance and medication refills ? Call to Schedule in1 week Electronic Signatures: Leslie Jolley (ALEX-DIRECTOR OF INDUSTRIAL RELATIONS) (Signed 29-Oct-2017 12:50) Authored: Discharge Orders, Provider FINAL REVIEW of Orders, Appointments, Gold Form - Print Buyer Summary Last Updated: 29-Oct-2017 12:50 by Leslie Jolley ([employer]OF[employer]AL [employer]-DIRECTOR OF INDUSTRIAL RELATIONS) CBC Collected: 10/29/2017 Status: F Source: [place] 6:44 AM HOSPITALS REPOSITORY TYPE CODE TESTS RESULT OUT OF RANGE REFERENCE UNITS LAB WBCR(LOINC) 4.4 - 11.3 x10E9/L WBC 5.1 LAB RBCCT(LOINC 4.50 - 5.90 x10E12/L ) Low RBC 3.77 LAB HGB(LOINC) 13.5 - 17.5 g/dL Low HGB 11.0 LAB HCT(LOINC) 41.0 - 52.0 % Low HCT 34.4 LAB MCV(LOINC) 80 - 100 fL MCV 91 LAB MCHC2(LOINC 32.0 - 36.0 g/dL ) MCHC 32.0 LAB PLTCT(LOINC 150 - 450 x10E9/L ) Low PLT 124 LAB RDWCV(LOINC 11.5 - 14.5 % ) High RDW-CV 20.4 Performed By: #### CBC #### [facility] [address] [place] [address] TROPONIN I Collected: 10/29/2017 Status: F Source: [address] REPOSITORY TYPE CODE TESTS RESULT OUT OF REFERENCE UNITS RANGE LAB TROP2(LOINC 0.00 - 0.03 ng/mL ) TROPONIN I <0.02 Result Comment: LESS THAN 0.04 NG/ML: NEGATIVE REPEAT TESTING IN FOUR TO SIX HOURS IF CLINICALLY INDICATED. 0.04 - 0.5 NG/ML: CONSISTENT WITH POSSIBLE CARDIAC DAMAGE AND POSSIBLE INCREASED CLINICAL RISK. SERIAL MEASUREMENTS MAY HELP ASSESS EXTENT OF MYOCARDIAL DAMAGE. >0.5 NG/ML: CONSISTENT WITH CARDIAC DAMAGE, INCREASED CLINICAL RISK AND MYOCARDIAL INFARCTION. SERIAL MEASUREMENTS MAY HELP ASSESS EXTENT OF MYOCARDIAL DAMAGE. . Note: Troponin I testing is performed using different testing methodology at [facility] than at [facility]. Direct result comparisons should only be made within the same method. Performed By: #### TROP2 #### [facility] [address] [place] [address] BNP Collected: 10/29/2017 Status: F Source: [address] REPOSITORY TYPE CODE TESTS RESULT OUT OF RANGE REFERENCE UNITS LAB BNP2(LOINC) 0 - 99 pg/mL High BNP 334 Result Comment: . <100 pg/mL - Heart failure unlikely 100-299 pg/mL - Intermediate probability of acute heart . failure exacerbation. Correlate with clinical . context and patient history. >=300 pg/mL - Heart Failure likely. Correlate with clinical . context and patient history. BNP testing is performed using different testing methodology at [facility] than at [facility]. Direct result comparisons should only be made within the same method. Performed By: #### BNP2 #### [facility] [address] [place] [address] BASIC METABOLIC PANEL Collected: 10/29/2017 Status: F Source: [address] REPOSITORY TYPE CODE TESTS RESULT OUT OF REFERENCE UNITS RANGE LAB GLU(LOINC) 74 - 99 mg/dL GLUCOSE 96 LAB SOD(LOINC) 136 - 145 mmol/L Low SODIUM 135 LAB K(LOINC) 3.5 - 5.3 mmol/L POTASSIUM 4.3 LAB CHLOR(LOIN 98 - 107 mmol/L C) CHLORIDE High 108 LAB BIC(LOINC) 21 - 32 mmol/L BICARBONATE 23 LAB ANGAP(LOIN 10 - 20 mmol/L C) Low ANION GAP 8 LAB UREA(LOINC 6 - 23 mg/dL ) UREA NITROGEN 17 LAB CREA(LOINC 0.50 - 1.30 mg/dL ) CREATININE 0.86 LAB GFRFN(LOIN >60 mL/min/1.7 C) 3m2 GFR-NON AM. >60 LAB GFRAA(LOIN >60 mL/min/1.7 C) 3m2 GFR- AM. >60 Result Comment: CALCULATIONS OF ESTIMATED GFR ARE PERFORMED USING THE MDRD STUDY EQUATION FOR THE IDMS-TRACEABLE CREATININE METHODS. CLIN CHEM 2007;53:766-72 LAB CA(LOINC) 8.6 - 10.3 mg/dL CALCIUM 8.8 Performed By: #### BMP #### [facility] [address] [place] [address] CLINICAL EVENT Observed: 10/28/2017 Status: UNK Source: [facility]-CARDIOLOGY 1:23 PM HOSPITALS REPOSITORY Event: Topic: Cardiology Details: The patient should remain on Eliquis and Aspirin (81mg). He is not taking Eliquis for his valve it is for his hx of Atrial Fibrillation. Electronic Signatures: Arlene Leon (PROFESSIONAL [employer]-DIRECTOR OF INDUSTRIAL RELATIONS) (Signed 28-Oct-2017 13:24) Authored: Event Last Updated: 28-Oct-2017 13:24 by Arlene Leon (PROFESSIONAL [employer]-DIRECTOR OF INDUSTRIAL RELATIONS) CONCRETE VIBRATOR OPERATOR EVALUATION Observed: 10/28/2017 Status: UNK Source: [place] 1:07 PM HOSPITALS REPOSITORY General Information: ? Time IN09:29 ? Time OUT09:46 ? Evaluation TypeBedside Clinical Swallow ? Patient Profile Reviewyes ? Onset of Illness/Injury, or Date of [id number] ? Reason for Referral/Medical DiagnosisR/o aspiration, impaired speech/language function ? General ObservationsPt awake/alert at time of eval ? Pertinent History of Current ProblemPt admitted with stroke like symptoms - difficulty swallowing, slurred speech, facial droop. ? Respiratory Statusunlabored ? HearingWFL ? VisionWFL ? Weight Lossno ? Previous Studyno Clinical Impression: ? CONCRETE VIBRATOR OPERATOR DiagnosisMild, intermittent dysarthria ? Functional Level at Time of EvaluationPt demo's occasionally slurred speech. Pt reports worsening with fatigue. At this time speech is 100% intelligible at the conversation level. ? Criteria for Skilled Therapeutic Interventions Metno; no problems identified which require skilled intervention ? Therapy Frequencyevaluation only ? Predicted Duration of Therapy Intervention (days/wks)until discharge or goals met ? Discharge Recommendationhome with no further CONCRETE VIBRATOR OPERATOR ? Goal G codeCH ? Current G codeCH ? Discharge G codeCH Oral Mechanism Examination: ? Oral Musculaturegenerally intact; mild general weakness ? Structural Abnormalitiesnone present ? Dentitionupper dentures; lower dentures ? Secretion ManagementWFL ? Mucosal Qualitygood ? Mandibular Strengthintact ? Mandibular Mobilityintact ? Oral Labial StrengthWFL ? Oral Labial MobilityWFL ? Lingual StrengthWFL ? Lingual MobilityWFL Cognitive Status Examination: ? Behavioral Observationsalert ? Orientationx3 ? Attentionintact Auditory Comprehension: ? Auditory Comprehensionintact Verbal Expression: ? Verbal Expressionintact Motor Speech: ? Motor Speechintact ? Sustained PhonationWFL ? Alternating Rapid SoundsWFL ? ObservationsPt reports increased slurred speech with fatigue. Electronic Signatures: Valentina Alvarez (CONCRETE VIBRATOR OPERATOR) (Signed 28-Oct-2017 13:11) Authored: General Information, Clinical Impression, Oral Mechanism Examination, Cognitive Status, Auditory Comprehension, Verbal Expression, Motor Speech Last Updated: 28-Oct-2017 13:11 by Valentina Alvarez (CONCRETE VIBRATOR OPERATOR) SWALLOW EVALUATION-BEDSIDE Observed: 10/28/2017 Status: UNK Source: [place] CLINICAL SWALLOW 12:52 PM HOSPITALS REPOSITORY General Information: ? Time IN09:29 ? Time OUT09:46 ? Evaluation TypeBedside Clinical Swallow ? Patient Profile Reviewyes ? Onset of Illness/Injury, or Date of [id number] ? Reason for Referral/Medical DiagnosisR/o aspiration, impaired speech/language function ? General ObservationsPt awake/alert at time of eval ? Pertinent History of Current ProblemPt admitted with stroke like symptoms - difficulty swallowing, slurred speech, facial droop. ? Respiratory Statusunlabored ? HearingWFL ? VisionWFL ? Weight Lossno ? Previous Studyno Clinical Impression: ? CONCRETE VIBRATOR OPERATOR DiagnosisOropharyngeal swallow WFL at time of eval ? Functional Level at Time of EvalClinical swallow evaluation completed. Pt consumed trials of thin liquids, puree, soft and solid textures. Hyolaryngeal elevation palpated and appears WFL. Pt consumed 3oz water, consecutively without breaking, via staw. No s/s aspiration observed or change in vocal quality/respiratory functioning. Adequate mastication and AP transit given additional time.. ? Recommended Diet and PresentationRegular diet/thin liquids ? Recommended Feeding/Eating Techniquesfeed upright in 90 degree position; slow rate; small sips/bites; maintain upright posture during/after eating for 30 mins ? Criteria for Skilled Therapeutic Interventions Metyes; treatment indicated ? Rehab Potentialgood, to achieve stated therapy goals ? Therapy Frequency1-3 days/wk ? Predicted Duration of Therapy Intervention (days/wks)until discharge or goals met ? Monitor for Signs of Aspirationpneumonia ? Monitor for Signs of Silent Aspirationwet voice quality/gurgly ? Discharge Recommendationoutpatient CONCRETE VIBRATOR OPERATOR ? Current G codeCI ? Goal G codeCH Cognitive Status Exam: ? Behavioral Observationsalert ? Orientationx3 ? Attentionintact ? Follows Commandsintact Oral Mechanism Examination: ? Oral Musculaturegenerally intact ? Structural Abnormalitiesnone present ? Dentitionupper dentures; lower dentures ? Secretion ManagementWFL ? Mucosal Qualitygood ? Mandibular Strengthintact ? Mandibular Mobilityintact ? Oral Labial StrengthWFL ? Oral Labial MobilityWFL ? Lingual StrengthWFL ? Lingual MobilityWFL Clinical Swallow Evaluation: Bedside Eval Thin Liquid by Straw: ? Mode of Presentationcup; straw ? Volume and Consistency [id number] ? Oral Phase of Swallowintact ? Pharyngeal Phase of Swallowintact Bedside Eval Puree by Spoon: ? Mode of Presentation, Pureespoon ? Volume of Puree [id number] ? Oral Phase, Pureeintact ? Pharyngeal Phase, Pureeintact Bedside Eval Semi Soft by Spoon: ? Mode of Presentation, Semisolidspoon ? Volume of Semisolid Food Hslijiuce7f (fruit + juice) ? Oral Phase, Semisolidintact ? Pharyngeal Phase, Semisolidintact Bedside Eval Solid by Other Mode: ? Mode of Presentation, Solidself fed ? Volume of Solid Food Jwvhqzfsd7n ? Oral Phase, Solidintact ? Pharyngeal Phase, Solidintact Electronic Signatures: Valentina Alvarez (CONCRETE VIBRATOR OPERATOR) (Signed 28-Oct-2017 13:07) Authored: General Information, Clinical Impression, Cognitive Status Exam, Oral Mechanism Examination, Clinical Swallow Evaluation Last Updated: 28-Oct-2017 13:07 by Valentina Alvarez (CONCRETE VIBRATOR OPERATOR) DISCHARGE PLANNING Observed: 10/28/2017 Status: UNK Source: [place] 12:33 PM HOSPITALS REPOSITORY Patient Learning: ? Factors that Impact Ability to Learnnone(1) Other Factors: ? Functional Screen: In the recent/past 2-4 weeks, patient or family have noticeda significant change in speech or language, a significant change in ability to chew or swallow(2) Discharge Planning: Discharge Plannin10/28/17 1225 Met with patient about discharge planning. Patient is from home, was independent with no nursing services prior to admission. Patient has been assessed for the following needs: HHC, equipment, help with obtaining medications financial needs. Pt. PCP is Dr. Gracy Cuellar. No advanced directives, mother is emergency contact at (home) [phone] and (cell) [phone]. Patient denies any needs at this time. Will continue to follow. Raffi Head RN 1530 Pt. presented with OP OT script and OP rehab facilities. pt. states there is one rehab near him, and will look at going to [facility]. Raffi Head RN Final Disposition/Discharge: Disposition/Discharge Information: Discharge/Transfer Information: ? Discharge/Transfer Date/[id number]-[id number] 15:30 ? Discharged Accompanied Byfamily member ? Discharge Modeambulatory ? Transportation Methodprivate car ? Final DispositionHome Electronic Signatures: [place] Aviles (KEV) (Signed 29-Oct-2017 15:44) Authored: Final Disposition/Discharge Suly HeadRN) (Signed 29-Oct-2017 08:42) Authored: Discharge Planning Note Last Updated: 29-Oct-2017 15:44 by India Aviles (KEV) References: 1. Data Referenced From 5. Education 10/27/2017 10:23 PM 2. Data Referenced From Admission Risk Screen - Adult 10/27/2017 10:23 PM HEMOGLOBIN A1C Collected: 10/28/2017 Status: F Source: [facility] 12:17 PM HOSPITALS REPOSITORY TYPE CODE TESTS RESULT OUT OF RANGE REFERENCE UNITS LAB HBA1C(LOINC % ) HGB A1C 5.2 Result Comment: Diagnosis of Diabetes-Adults Non-Diabetic: < or = 5.6% Increased risk for developing diabetes: 5.7-6.4% Diagnostic of diabetes: > or = 6.5% . Monitoring of Diabetes Age (y) Therapeutic Goal (%) Adults: >18 <7.0 Pediatrics: 13-18 <7.5 7-12 <8.0 0- 6 7.5-8.5 [place] [employer]. Diabetes Care 33(S1), Mar 2009. LAB ESAVG(LOINC) MG/DL EST.AVG.GLUCOSE 103 Performed By: #### HBA1E #### [facility] [address] [place] [address] PROTEIN S AG TOTAL Collected: 10/28/2017 Status: CANCELLED Source: [place] 12:[address] [place] [address] REPOSITORY Order Comment: TEST PROTEIN S AG TOTAL WAS CANCELLED, 10/29/2017 09:38 QNS, PLEASE RESUBMIT.. TYPE CODE TESTS RESULT OUT OF REFERENCE UNITS RANGE LAB PRST(LOINC ) PROTEIN S AG Canceled TOTAL Performed By: #### PRST #### [facility] [address] [place], [place] [id number] ANTICARDIOLIPIN AB Collected: 10/28/2017 Status: F Source: [place] [address]:[address] [place] [address] REPOSITORY TYPE CODE TESTS RESULT OUT OF RANGE REFERENCE UNITS LAB ACAG2(LOINC 0.0 - 20.0 GPL U/mL ) DANA IGG 2.6 Result Comment: Elevated levels of IgG anti-cardiolipin on 2 occasions at least 12 weeks apart are laboratory criteria for anti-phospholipid syndrome according to an international consensus (J Thromb Haemost 2006 4:295). LAB ACAIA(LOINC) 0.0 - 20.0 APL U/mL DANA 0.9 IGA Result Comment: Elevated levels of IgA anti-cardiolipin have not been included in the laboratory criteria for anti-phospholipid syndrome according to an international consensus (J Thromb Haemost 2006 4:295). It may be helpful in identifying subgroups of patients at risk for specific clinical manifestations of anti-phospholipid syndrome. LAB ACAM2(LOINC) 0.0 - 20.0 MPL U/mL DANA 0.2 IGM Result Comment: Elevated levels of IgM anti-cardiolipin on 2 occasions at least 12 weeks apart are laboratory criteria for anti-phospholipid syndrome according to an international consensus (J Thromb Haemost 2006 4:295). IgM anti-cardiolipin tends to give false positive results in the low positive range, especially in the presence of rheumatoid factor or cryoglobulins. Performed By: #### ACA2 #### [facility] [address] [place] [address] LUPUS ANTICOAG. WITH Collected: Status: F Source: [place] INTERPRETATION[HARDING] 10/28/2017 12:17 PM HOSPITALS REPOSITORY TYPE CODE TESTS RESULT OUT OF REFERENCE UNITS RANGE LAB DRVSC(LOIN RATIO C) DRVVT SCREEN 1.94 LAB DRVCN(LOIN RATIO C) DRVVT CONFIRMATION 2.55 LAB DRVTR(LOIN <=1.20 RATIO C) DRVVT TEST RATIO 0.76 LAB SCTSC(LOIN RATIO C) SCT SCREEN 1.62 LAB SCTCN(LOIN RATIO C) SCT CONFIRMATION 1.81 LAB SCTTR(LOIN <=1.16 RATIO C) SCT TEST RATIO 0.89 LAB LAINT(LOIN C) LA INTERPRETATION SEE BELOW Result Comment: No evidence of lupus 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 in these assays (DRVVT and Silica Clotting Time (SCT)). Assay interferences may occur in the presence of factor deficiency/inhibitor and/or 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s. For patients on anti-Vitamin K therapy, repeating DRVVT testing might be indicated when the patient is off anti-vitamin K therapy. The DRVVT assay contains a heparin neutralizer up to 1.0 U/mL. Higher concentrations of heparin may cause interferences. SCT results are not affected by UF heparin up to 0.5 U/mL and LMW Heparin up to 1.0 U/mL. Higher concentrations of heparin may cause interferences. Correlation with clinical findings and clinical history is necessary to assess significance of results in an individual patient. Performed By: #### HARDING #### [facility] [address] [place] [address] PROTHROMBIN MUTATION- Collected: 10/28/2017 Status: F Source: [place] [id number] 12:17 PM HOSPITALS REPOSITORY TYPE CODE TESTS RESULT OUT OF REFERENCE UNITS RANGE LAB GIN19(LOIN C) PROTHROMBIN MUTATION- [id number] SEE BELOW Result Comment: RESULTS WILL BE SENT ON SEPARATE REPORT. Performed By: #### GPRO2 #### [facility] [address] [address] [place], [place] [id number] FACTOR V LEIDEN Collected: 10/28/2017 Status: F Source: [place] 12:17 PM HOSPITALS REPOSITORY TYPE CODE TESTS RESULT OUT OF REFERENCE UNITS RANGE LAB GINT9(LOINC ) FACTOR V SEE BELOW LEIDEN Result Comment: RESULTS WILL BE SENT ON SEPARATE REPORT. Performed By: #### LEID2 #### [facility] [address] [address] [place], [place] [id number] PROTEIN C ACTIVITY Collected: 10/28/2017 Status: F Source: [place] 12:[address] [place] [address] REPOSITORY TYPE CODE TESTS RESULT OUT OF REFERENCE UNITS RANGE LAB PCACT(LOINC 70 - 150 %activity ) PROTEIN C 77 ACTIVITY Performed By: #### PCACT #### [facility] [address] [place] [address] ANTITHROMBIN Collected: 10/28/2017 Status: F Source: [place] 12:[address] [place] [address] REPOSITORY TYPE CODE TESTS RESULT OUT OF REFERENCE UNITS RANGE LAB AT(LOINC) 80 - 130 %activity ANTITHROMBIN 111 Performed By: #### AT #### [facility] [address] [place] [address] PROTEIN S AG FREE Collected: 10/28/2017 Status: F Source: [place] 12:[address] [place] [address] REPOSITORY TYPE CODE TESTS RESULT OUT OF REFERENCE UNITS RANGE LAB PRSF(LOINC) 70 - 130 % Low PROTEIN S AG 67 FREE Result Comment: Acquired deficiency may be observed during , during oral 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 therapy, during oral contraceptive use, in liver disease, in infants as well as in other clinical conditions. Performed By: #### PRSF #### [facility] [address] [place] [address] 12 LEAD ELECTROCARDIOGRAM Observed: 10/28/2017 Status: F Source: [place] 10:09 AM [facility] REPOSITORY [facility] Cardiovascular Services [address] [place] [address] 12 Lead EKG 10/26/17 1105 MR#: [id number] Acct: [id number] Name: FRANK RIVERA Rep #: [id number] : 1955 62 From: Joie Whitaker MD Attending Dr: Status: DEP Ordering Dr: Rocco Ayala MD Date: 10/26/17 Location: ED Sex: M C Admitted: Test Reason : Blood Pressure : / mmHG Vent. Rate : 060 BPM Atrial Rate : 060 BPM P-R Int : 266 ms QRS Dur : 156 ms QT Int : 470 ms P-R-T Axes : -17 080 050 degrees QTc Int : 470 ms Atrial-paced rhythm with prolonged AV conduction Right bundle branch block Abnormal ECG Confirmed by ROSARIO ZAMORA, JOIE ([id number]), editorial project manager CHAS WILHELM ([id number]) on 10/28/2017 10:08:35 AM Referred By: Gracy Cuellar Confirmed By:JOIE WHITAKER MD 10/28/17 1008 Date Joie Whitaker MD CC: Rocco Ayala MD; Gracy Cuellar DO Signed ECHOCARDIOGRAM Observed: 10/28/2017 Status: F Source: [place] 9:54 AM [facility], [address] [place] [address] and TRANSTHORACIC ECHOCARDIOGRAM REPORT Patient Name: FRANK RIVERA Reading Physician: [id number] Rohit Cobian MD Study Date: 10/28/2017 Referring Rain Segura MD Physician: MRN/PID: [id number] PCP: Accession/Order#: [id number] [facility] Location: Date of : 1955 Fellow: Gender: M Nurse: Admit Date: 10/27/2017 Vice President Of Software Development: Janelle Fontaine [facility] Admission Status: Inpatient - Additional Staff: Routine Height: 193.00 cm CC Report to: [address] [place] [address] Weight: 99.70 kg Study Type: Echocardiogram BSA: 2.31 m2 Blood Pressure: 136 /78 mmHg Diagnosis/ICD: I67.9 Cerebrovascular disease, unspecified Indication: Stroke Procedure/CPT: Echo Complete w/Full Doppler (51909) Patient History: Pertinent History: Stroke like symptoms. Study Detail: The following Echo studies were performed: 2D, M-Mode, Doppler and color flow. Agitated saline used as a contrast agent for intraseptal flow evaluation. PHYSICIAN INTERPRETATION: Left Ventricle: The left ventricular systolic function is normal, with an estimated ejection fraction of 60-65%. The left ventricular cavity size is normal. There is mild to moderate concentric left jorge luis tricular hypertrophy. Spectral Doppler shows a normal pattern of left ventricular diastolic filling. Left Atrium: The left atrium is mild to moderately dilated. There is a small patent foramen ovale. The patent foramen ovale was visualized using agitated saline contrast. A bubble study using agitated s khadar was performed. Bubble study is positive. A small PFO (= 10 bubbles) was demonstrated. Right Ventricle: The right ventricle is normal in size. There is normal right ventricular global systolic function. Right Atrium: The right atrium is mildly dilated. Aortic Valve: The aortic valve appears abnormal. There is evidence of moderate aortic valve stenosis. There is a bioprosthetic aortic valve. The prosthetic aortic valve has stenosis present. There is no evidence of aortic valve regurgitation. The peak instantaneous gradient of the aortic valve is 49.3 m mHg. The mean gradient of the aortic valve is 27.0 mmHg. Mitral Valve: The mitral valve is normal in structure. There is normal mitral valve leaflet mobility. There is mild mitral annular calcification. There is trace mitral valve regurgitation. Tricuspid Valve: The tricuspid valve is structurally normal. There is normal tricuspid valve leaflet mobility. There is mild tricuspid regurgitation. The doppler estimated RVSP is mild to moderately elevated at 47.5 mmHg. Pulmonic Valve: The pulmonic valve is structurally normal. There is trace pulmonic valve regurgitation. Pericardium: There is no pericardial effusion noted. Aorta: The aortic root is normal. There is no dilatation of the aortic arch. There is mild dilatation of the ascending aorta. There is no dilatation of the aortic root. There is plaque visualized in the ascending aorta, which is classified as a Grade 3 [moderate atheroma >3-5 mm (no mobile/ulcerated component)] atherosclerosis. Pulmonary Artery: The estimated PASP is 47-52 mmHg. Systemic Veins: The inferior vena cava appears dilated. There is poor inspiratory collapse of the IVC (less than 50%), consistent with elevated right atrial pressure. CONCLUSIONS: 1. The left ventricular systolic function is normal with a 60-65% estimated ejection fraction. 2. The left atrium is mild to moderately dilated. 3. Mild to moderately elevated right ventricular systolic pressure. 4. Moderate aortic valve stenosis. 5. The prosthetic aortic valve has stenosis present. 6. There is a bioprosthetic aortic valve. 7. The estimated PASP is 47-52 mmHg. 8. Small patent foramen ovale. 9. A bubble study using agitated saline was performed. Bubble study is positive. A small PFO (= 10 bubbles) was demonstrated. 10. The peak instantaneous gradient of the aortic valve is 49.3 mmHg. 11. There is plaque visualized in the ascending aorta. QUANTITATIVE DATA SUMMARY: 2D MEASUREMENTS: Normal Ranges: LAs: 5.00 cm (2.7-4.0cm) IVSd: 1.50 cm (0.6-1.1cm) LVPWd: 1.50 cm (0.6-1.1cm) LVIDd: 5.30 cm (3.9-5.9cm) LVIDs: 3.30 cm LV Mass Index: 152.9 g/m2 LV % FS 37.7 % LA VOLUME: Normal Ranges: LA Vol A4C: 125.5 ml (22+/-6mL/m2) LA Vol A2C: 114.8 ml LA Vol BP: 129.4 ml LA Vol Index A4C: 54.4 ml/m2 LA Vol Index A2C: 49.8 ml/m2 LA Vol Index BP: 56.1 ml/m2 LA Area A4C: 31.8 cm2 LA Area A2C: 28.2 cm2 LA Major Killbuck A4C: 6.8 cm LA Major Killbuck A2C: 5.9 cm LA Volume Index: 56.0 ml/m2 M-MODE MEASUREMENTS: Normal Ranges: Ao Root: 4.60 cm (2.0-3.7cm) AORTA MEASUREMENTS: Normal Ranges: Asc Ao, d: 4.00 cm (2.1-3.4cm) LV SYSTOLIC FUNCTION BY 2D PLANIMETRY (MOD): Normal Ranges: EF-A4C View: 68.1 % (>55%) EF-A2C View: 69.6 % EF-Biplane: 69.9 % LV DIASTOLIC FUNCTION: Normal Ranges: MV lateral e' 0.13 m/s MV medial e' 0.06 m/s MITRAL VALVE: Normal Ranges: MV Vmax: 1.51 m/s (<1.3m/s) MV peak P.1 mmHg (<5mmHg) MV mean P.0 mmHg (<48mmHg) AORTIC VALVE: Normal Ranges: AoV Vmax: 3.51 m/s (<1.7m/s) AoV Peak P.3 mmHg (<20mmHg) AoV Mean P.0 mmHg (1.7-11.5mmHg) LVOT Max Abdifatah: 1.35 m/s (<1.1m/s) AoV VTI: 83.40 cm (18-25cm) LVOT VTI: 20.90 cm LVOT Diameter: 2.20 cm (1.8-2.4cm) AoV Area, VTI: 0.95 cm2 (2.5-5.5cm2) AoV Area,Vmax: 1.46 cm2 (2.5-4.5cm2) AoV Dimensionless Index: 0.25 RIGHT VENTRICLE: RV 1 5.07 cm RV 2 3.08 cm RV 3 8.53 cm TAPSE: 27.6 mm TRICUSPID VALVE/RVSP: Normal Ranges: Peak TR Velocity: 3.26 m/s RV Syst Pressure: 47.5 mmHg (< 30mmHg) PULMONIC VALVE: Normal Ranges: PV Accel Time: 116 msec (>120ms) PV Max Abdifatah: 1.2 m/s (0.6-0.9m/s) PV Max P.7 mmHg [id number] Rohit Cobian MD Electronically signed on 10/28/2017 at 5:14:13 PM Final HISTORY AND PHYSICAL Observed: 10/28/2017 Status: COMPLETED Source: [place] 8:48 AM HOSPITALS REPOSITORY History of Present Illness: HPI: This is a 62 years old male transfered from outside hospital ED. He experienced dizziness 4 days ago on Thursday night. He felt slight slurred speech on Thursday. Thursday he had some blood work and sent to the ED. Work up was negative therefore he went home. Experienced worsening slurred speech and loss of temperature sensation of right hand yesterday and came to ED. 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 Has a left temporal headache. PMH Aortic valve Replacement Apr this year Pacemaker Gastric by pass 1995 I will monitor H&H check stool for occult blood type & crossmatch get a GI consult for endoscopy bleed Family History: Family History: reviewed and not pertinent to presenting problem Social History: Social History: Smoking Statuslight tobacco user (smokes <10 cigs daily, OR < ? PPD, OR <2 cans/pouches loose leaf tobacco per week) Alcohol Useoccasionally Allergies: ? penicillin: Hives/Urticaria Medications Prior to Admission: hydrALAZINE 25 mg oral tablet: orally 3 times a day Synthroid 200 mcg (0.2 mg) oral tablet: 1 tab(s) orally once a day atorvastatin 40 mg oral tablet: 1 tab(s) orally once a day Protonix 40 mg oral delayed release tablet: orally 2 times a day metoprolol tartrate 25 mg oral tablet: 1 tab(s) orally 2 times a day Eliquis 5 mg oral tablet: 1 tab(s) orally 2 times a day. Review of Systems: Constitutional: NEGATIVE: Fever, Chills, Anorexia, Weight Loss, Malaise Eyes: NEGATIVE: Blurry Vision, Drainage, Diploplia, Redness, Vision Loss/ Change Respiratory: NEGATIVE: Dry Cough, Productive Cough, Hemoptysis, Wheezing, Shortness of Breath Cardiac: NEGATIVE: Chest Pain, Dyspnea on Exertion, Orthopnea, Palpitations, Syncope Gastrointestinal: NEGATIVE: Nausea, Vomiting, Diarrhea, Constipation, Abdominal Pain Genitourinary: NEGATIVE: Discharge, Dysuria, Flank Pain, Frequency, Hematuria Musculoskeletal: NEGATIVE: Decreased ROM, Pain, Swelling, Stiffness, Weakness Neurological: POSITIVE: Dizziness, Headache; NEGATIVE: Confusion, Seizures, Syncope Psychiatric: NEGATIVE: Mood Changes, Anxiety, Hallucinations, Sleep Changes, Suicidal Ideas Skin: NEGATIVE: Mass, Pain, Pruritus, Rash, Ulcer Objective: Objective Information: T PRBPSpO2 [id number]/7893% Date/Time10/28 7: 7: 7: 7: 7:30 Range(36.3C - 36.7C ) (61 - 77 ) (16 - 16 ) (129 - 156 )/ (62 - 85 ) (93% - 96% ) Physical Exam: Constitutional: no distress, alert and cooperative ENMT: mucous membranes moist, no apparent injury, no lesions seen Head/Neck: No JVD Respiratory/Thorax: No labored breathing, Patent airways, CTAB, normal breath sounds with good chest expansion, thorax symmetric Cardiovascular: Regular, rate and rhythm, no murmurs, normal S 1and S 2 Gastrointestinal: Nondistended, soft, non-tender, no masses palpable, no organomegaly, +BS Musculoskeletal: ROM intact, no joint swelling, normal strength Extremities: normal extremities, no edema Neurological: alert and oriented x3, follows commands, Cranial nerves normal except for right sided facial weakness, speech slightly slurred. slight drifting of right UL Psychological: Appropriate mood and behavior Skin: Warm and dry, no lesions, no rashes Recent Lab Results: Results: I have reviewed these laboratory results: Complete Blood Count 28-Oct-2017 06:21:00 ResultValue White Blood Cell Count 4.9 Red Blood Cell Count 3.93 L HGB 11.4 L HCT 36.3 L MCV 92 MCHC 31.4 L PLT 122 L RDW-CV 20.8 H Basic Metabolic Panel 28-Oct-2017 06:21:00 ResultValue Glucose, Serum 77 NA 134 L K 4.3 CL 109 H Bicarbonate, Serum 22 Anion Gap, Serum 7 L BUN 18 CREAT 0.82 GFR-Non >60 GFR- >60 Calcium, Serum 8.8 Lipid Panel 28-Oct-2017 06:21:00 ResultValue Cholesterol, Serum 52 . AGE DESIRABLE BORDERLINE HIGH HIGH 0-19 Y 0 - 169 170 - 199 >/= 200 20-24 Y 0 - 189 190 - 224 >/= 225 >24 Y 0 - 199 200 - 239 >/= 240 All ranges are based on fasting sampl HDL Cholesterol, Serum 10.4 . AGE VERY LOW LOW NORMAL HIGH 0-19 Y < 35 < 40 40-45 ---- 20-24 Y ---- < 40 >45 ---- >24 Y ---- < 40 40-60 >60 . A Cholesterol/HDL Ratio 5.0 REF VALUES DESIRABLE < 3.4 HIGH RISK > 5.0 LDL, Level 13 . NEAR BORD AGE DESIRABLE OPTIMAL HIGH HIGH VERY HIGH 0-19 Y 0 - 109 --- 110-129 >/= 130 ---- 20-24 Y 0 - 119 --- 120-159 >/= 160 ---- >24 Y 0 - VLDL, Serum 28 Triglycerides, Serum 142 . AGE DESIRABLE BORDERLINE HIGH HIGH VERY HIGH 0 D-90 D 19 - 174 ---- ---- ---- 91 D- 9 Y 0 - 74 75 - 99 >/= 100 ---- 10-19 Y 0 - 89 90 - 129 >/= 130 ---- Radiology Results: Results: ECG Paced, RBBB Assessment and Plan: Impression 1: Acute CVA Plan for Impression 1: ASA, neuroconsult Impression 2: Vertebral artery thrombosis Impression 3: Atrial fibrillation Plan for Impression 3: on Eliquis Signatures/Attestation/Certification: Attending Provider ? Inpatient Certification StatementI certify this patient?s need for inpatient care based on the above documentation including; the order to admit as inpatient, the anticipated length of stay, diagnosis, problem list and plan of care, and discharge plan. Critical [facility] Admission: The patient can reasonably be expected to be discharged or transferred to another hospital within 96 hours after admission to the [facility]. Electronic Signatures: Rain Segura) (Signed 29-Oct-2017 14:13) Authored: History of Present Illness, Comorbidities, Family History, Social History, Allergies, Medications Prior to Admission, Review of Systems, Objective, Assessment and Plan, Signatures/Attestation/Certification Last Updated: 29-Oct-2017 14:13 by Rain Segura) EMERGENCY DEPARTMENT Observed: 10/28/2017 Status: F Source: [place] SUMMARY 8:10 AM [facility] REPOSITORY [facility] Medical Records Department [address] [place] [address] Emergency Department Summary 10/27/17 1649 MR#: [id number] Acct: [id number] Name: FRANK RIVERA Rep #: [id number] : 1955 62 From: Rocco Ayala MD PCP: Gracy Cuellar DO Status: DEP ER - ER Visit Summary Date of Service: 10/27/17 Chief Complaint: Possible stroke History of Present Illness: The patient is a 62 M with a possible stroke. The patient was seen yesterday by me in this ED for headache and dizziness. He had a workup which was fairly unremarkable, and no focal neurologic symptoms, and he had requested to go home. He was advised that he had not been fully evaluated for stroke, and to return with any new symptoms. Later yesterday evening he developed some trouble swallowing, and then when he woke up this morning at 7am he was having slurred speech and decreased temperature sensation in his right hand. He went to his eye doctor this morning. His eyes were dilated and he had a normal eye exam. He then went to his primary care doctor who was concerned for stroke and sent him to the emergency department. He takes Eliquis for a heart valve replacement. Physical Examination: Patient's vital signs are unremarkable. No acute distress. Alert and oriented. NIH of 2, 1 point for dysarthria, 1 point for sensory change on the right. Head and neck atraumatic. Pupils are dilated medically. Heart regular. Lungs clear. Abdomen soft. Test Results: EKG and repeat labs unremarkable. CTA head and neck showed a left vertebral artery thrombus distally. Right vertebral is normal. Emergency Department Course and Treatment: Patient returns with focal strokelike symptoms. He was not a candidate for stroke team or TPA. He was placed on a monitor and workup was initiated. I did speak with Dr. Nunes--the patient is not a candidate for emergent MRI because of his pacemaker. The plan will be to check CTAs of the head and neck, and admit for further care. EKG and labs unremarkable, stable. CTA showed a left distal vertebral thrombus. Patient was discussed with neurology again. Dr. Nunes recommended evaluation by an endovascular specialist. He recommended or the [facility]. I spoke with the patient, who was agreeable to . I spoke with the stroke neurologist, Dr. Mims. She did not feel that the patient would be an endovascular candidate, but did recommend that he goes to a stroke center with neurosurgery and neurology for likely medical management. The closest appropriate facility with available beds was [facility] and the patient was accepted by Dr. Hernandez. Treatment Plan: As above Disposition: Transfer Impression: 1. Acute stroke 2. Thrombus distal left vertebral artery This note was generated with [employer] dictation software. It may contain incorrect words, spelling, and punctuation that were not noted in review of the chart prior to signing ED Disposition - Plan for ED Patient: Disposition: Acute Care Hospital - Other Chief Complaint: Neuro S/Sx Referrals: Gracy Cuellar, DO [Primary Care Provider] - What to do if you have Problems For any increased pain, shortness of breath, bleeding, nausea or vomiting, chest pain, or any unexpected problems, contact your Primary Care Provider. Call [facility] ([phone]) or report to the closest Emergency Room. Call 911 if necessary. 10/28/17 0810 <Electronically signed by Rocco Ayala MD> Date Rocco Ayala MD Cosigner Signature (If Indicated): Date CC: Gracy Kip CBC Collected: 10/28/2017 Status: F Source: [place] 6:21 AM [facility] REPOSITORY TYPE CODE TESTS RESULT OUT OF RANGE REFERENCE UNITS LAB WBCR(LOINC) 4.4 - 11.3 x10E9/L WBC 4.9 LAB RBCCT(LOINC 4.50 - 5.90 x10E12/L ) Low RBC 3.93 LAB HGB(LOINC) 13.5 - 17.5 g/dL Low HGB 11.4 LAB HCT(LOINC) 41.0 - 52.0 % Low HCT 36.3 LAB MCV(LOINC) 80 - 100 fL MCV 92 LAB MCHC2(LOINC 32.0 - 36.0 g/dL ) Low MCHC 31.4 LAB PLTCT(LOINC 150 - 450 x10E9/L ) Low PLT 122 LAB RDWCV(LOINC 11.5 - 14.5 % ) High RDW-CV 20.8 Performed By: #### CBC #### [facility] [address] [place] [address] BASIC METABOLIC PANEL Collected: 10/28/2017 Status: F Source: [place] [id number] [place] [address] REPOSITORY TYPE CODE TESTS RESULT OUT OF REFERENCE UNITS RANGE LAB GLU(LOINC) 74 - 99 mg/dL GLUCOSE 77 LAB SOD(LOINC) 136 - 145 mmol/L Low SODIUM 134 LAB K(LOINC) 3.5 - 5.3 mmol/L POTASSIUM 4.3 LAB CHLOR(LOIN 98 - 107 mmol/L C) CHLORIDE High 109 LAB BIC(LOINC) 21 - 32 mmol/L BICARBONATE 22 LAB ANGAP(LOIN 10 - 20 mmol/L C) Low ANION GAP 7 LAB UREA(LOINC 6 - 23 mg/dL ) UREA NITROGEN 18 LAB CREA(LOINC 0.50 - 1.30 mg/dL ) CREATININE 0.82 LAB GFRFN(LOIN >60 mL/min/1.7 C) 3m2 GFR-NON AM. >60 LAB GFRAA(LOIN >60 mL/min/1.7 C) 3m2 GFR- AM. >60 Result Comment: CALCULATIONS OF ESTIMATED GFR ARE PERFORMED USING THE MDRD STUDY EQUATION FOR THE IDMS-TRACEABLE CREATININE METHODS. CLIN CHEM 2007;53:766-72 LAB CA(LOINC) 8.6 - 10.3 mg/dL CALCIUM 8.8 Performed By: #### BMP #### [facility] [address] [place] [address] LIPID PANEL (CORONARY Collected: 10/28/2017 Status: F Source: [facility] R[facility]K 2) 6:21 AM [facility]OSPITALS REPOSITORY TYPE CODE TESTS RESULT OUT OF REFERENCE UNITS RANGE LAB CHOL(LOINC 0 - 199 mg/dL ) CHOLESTEROL 52 Result Comment: . AGE DESIRABLE BORDERLINE HIGH HIGH 0-19 Y 0 - 169 170 - 199 >/= 200 20-24 Y 0 - 189 190 - 224 >/= 225 >24 Y 0 - 199 200 - 239 >/= 240 All ranges are based on fasting samples. Specific therapeutic targets will vary based on patient-specific cardiac risk. . Pediatric guidelines reference:Pediatrics 2011, 128(S5). Adult guidelines reference: NCEP ATPIII Guidelines, ERNESTO 2001, 258:2486-97 . Venipuncture immediately after or during the administration of Metamizole may lead to falsely low results. Testing should be performed immediately prior to Metamizole dosing. LAB HDL(LOINC) mg/dL ABNORMAL HDL-CHOLESTEROL 10.4 Result Comment: . AGE VERY LOW LOW NORMAL HIGH 0-19 Y < 35 < 40 40-45 ---- 20-24 Y ---- < 40 >45 ---- >24 Y ---- < 40 40-60 >60 . LAB CHHDL(LOINC) CHOLESTEROL/HDL RATIO 5.0 Result Comment: REF VALUES DESIRABLE < 3.4 HIGH RISK > 5.0 LAB LDLF(LOINC) 0 - 99 mg/dL LDL 13 Result Comment: . NEAR BORD AGE DESIRABLE OPTIMAL HIGH HIGH VERY HIGH 0-19 Y 0 - 109 --- 110-129 >/= 130 ---- 20-24 Y 0 - 119 --- 120-159 >/= 160 ---- >24 Y 0 - 99 100-129 130-159 160-189 >/=190 . LAB VLDL(LOINC) 0 - 40 mg/dL VLDL 28 LAB TRIG(LOINC) 0 - 149 mg/dL TRIGLYCERIDES 142 Result Comment: . AGE DESIRABLE BORDERLINE HIGH HIGH VERY HIGH 0 D-90 D 19 - 174 ---- ---- ---- 91 D- 9 Y 0 - 74 75 - 99 >/= 100 ---- 10-19 Y 0 - 89 90 - 129 >/= 130 ---- 20-24 Y 0 - 114 115 - 149 >/= 150 ---- >24 Y 0 - 149 150 - 199 200- 499 >/= 500 . Venipuncture immediately after or during the administration of Metamizole may lead to falsely low results. Testing should be performed immediately prior to Metamizole dosing. Performed By: #### LIPID #### [facility] [address] [place] [address] HEMOGLOBIN A1C Collected: 10/28/2017 Status: F Source: [place] 6:21 AM [facility] REPOSITORY TYPE CODE TESTS RESULT OUT OF RANGE REFERENCE UNITS LAB HBA1C(LOINC % ) HGB A1C 5.1 Result Comment: Diagnosis of Diabetes-Adults Non-Diabetic: < or = 5.6% Increased risk for developing diabetes: 5.7-6.4% Diagnostic of diabetes: > or = 6.5% . Monitoring of Diabetes Age (y) Therapeutic Goal (%) Adults: >18 <7.0 Pediatrics: 13-18 <7.5 7-12 <8.0 0- 6 7.5-8.5 [place] [employer]. Diabetes Care 33(S1), Mar 2009. LAB ESAVG(LOINC) MG/DL EST.AVG.GLUCOSE 100 Performed By: #### HBA1E #### [facility] [address] [place] [address] HEMOGLOBIN A1C Collected: 10/28/2017 Status: CANCELLED Source: [place] 1:00 AM [facility] REPOSITORY Order Comment: TEST HEMOGLOBIN A1C WAS CANCELLED, 10/28/2017 02:02 DUPLICATE ORDER. TYPE CODE TESTS RESULT OUT OF REFERENCE UNITS RANGE LAB HBA1C(LOINC ) HGB A1C Canceled Result Comment: Diagnosis of Diabetes-Adults Non-Diabetic: < or = 5.6% Increased risk for developing diabetes: 5.7-6.4% Diagnostic of diabetes: > or = 6.5% . Monitoring of Diabetes Age (y) Therapeutic Goal (%) Adults: >18 <7.0 Pediatrics: 13-18 <7.5 7-12 <8.0 0- 6 7.5-8.5 [employer]. Diabetes Care 33(S1), Mar 2009. LAB ESAVG(LOINC) EST.AVG.GLUCOSE Canceled LAB A1CHB(LOINC) % HGB A1C Canceled Result Comment: Diagnosis of Diabetes-Adults Non-Diabetic: < or = 5.6% Increased risk for developing diabetes: 5.7-6.4% Diagnostic of diabetes: > or = 6.5% . Monitoring of Diabetes Age (y) Therapeutic Goal (%) Adults: >18 <7.0 Pediatrics: 13-18 <7.5 7-12 <8.0 0- 6 7.5-8.5 [employer]. Diabetes Care 33(S1), Mar 2009. Performed By: #### HBA1E #### [facility] [address] [address] CONSULT - NEURO-STROKE Observed: 10/27/2017 Status: COMPLETED Source: [place] 10:47 PM [facility]OSPITALS REPOSITORY Service: Service: Service: Stroke Consult: Consult requested by (Attending Name): Medicine Reason: Stroke History of Present Illness: HPI: Mr Sims has AVR takes eliquis at baseline, he was seen on Oct 26 by his PCP for dizziness, head CT and EKG and labs were ok, was sent home, on Oct 27 noted mild difficulty swallowing and sensory deficit to temperature on R hand, saw PCP again, sent to ED, at this time also noted L face droop and mild dysarthria. CTA done which showed multifocal plaque with LV occlusion at the skull base and RV/B patent. Patient went to [place] ED, from where he was discussed with at [facility], he was not a tPA or intervention candidate and there are no beds at [facility] so sent to [facility]. Allergies: penicillin Past medical history: AVR Vascular risk factors Social history: Denies use of tobacco, alcohol, or illicits. Family history: There is no family history of neurological disorders. Review of systems: ROS questionnaire completed and reviewed with the patient pertinent positives include: Constitutional: None Gastrointestinal: None Genitourinary: None Autonomic / Other: None Neurological: dysarthria, face weakness, numbness Psychiatric: None Skin: None Eyes: None Ears/Nose/Throat: None Endocrine: None Cardiovascular: None Respiratory: None Musculoskeletal: None Hematologic/Lymphatic: None Allergic/Immunologic: None Physical examination: General Exam: Appearance: He is in no acute distress. HEENT: The patient is normocephalic /atraumatic. Cardiovascular/Lungs/Abdomen: No carotid bruits to auscultation bilaterally, heart is regular in rate and rhythm with no bruits. Extremities/Skin: There is no peripheral edema. Neurological Examination: Mental status: He is alert and oriented to person, place date and situation. Cranial nerves: II/III: Fundiscopic examination technically difficult. Visual lima are full. Pupils are 3 mm and reactive to 2 mm bilaterally. III/IV/: Extraocular movements are full with no nystagmus. Saccades and pursuits are normal. VOR normal. V: Facial sensation is intact to light touch. VII: Face is weaker on the R side. VIII: hearing is intact bilaterally. IX/X: Palate elevates symmetrically to phonation. XI: Sternocleidomastoid is MRC 5/5 to strength testing. XII: Tongue is midline. Motor exam: Strength is MRC 5/5 throughout. There is no ataxia on tprfmd-endg-hjehfp. Gait is unsteady. Sensory exam: Sensation is intact to light touch and temp normal on the L side, R forearm temperature sensation impaired. Reflexes: Reflexes are symmetric. Bilateral plantar responses are flexor. Impression and plan: Mr Rivera is here for evaluation of dysarthria and R sensoryloss and R face weakness. Likely ischemic in nature, artery to artery thrombus, veruss poor perfusion. Will allow permissive BP, will add ASA 81 mg daily to his eliquis, will add atorvastatin 80 mg dialy. TTE, HBA1C, lipid profile. Watch for 48 hours. 60 minutes was spent during this visit with >50 % of the visit spent counseling about diagnosis, prognosis and treatment options. Thank you for allowing me to participate in the care of this patient with you. Review Family/Social History and ROS: Review Family/Social History and ROS: No family/social history has been recorded on this patient. No ROS has been documented on this patient. Past Medical/Surgical History: Medical History: Stroke-like symptoms: Allergies: ? penicillin: Hives/Urticaria Objective: Medications: Medications: Continuous Medications 1. Sodium Chloride 0.9% Infusion: 1000 mL IntraVenous <Continuous> Scheduled Medications 1. Apixaban: 5 mg Oral Every 12 Hours 2. Aspirin Chewable: 81 mg Oral Daily 3. Atorvastatin: 40 mg Oral Daily 4. hydrALAZINE: 25 mg Oral Every 8 Hours 5. Levothyroxine: 200 microgram(s) Oral Daily 6. Metoprolol Tartrate: 25 mg Oral Every 12 Hours 7. Pantoprazole: 40 mg Oral 2 Times a Day PRN Medications 1. Acetaminophen: 650 mg Oral Every 4 Hours Radiology Results: Results: No Results have been selected. Please select Results from the Available Results list before marking as Reviewed. Electronic Signatures: Ki Valdovinos) (Signed 27-Oct-2017 22:48) Authored: Service, History of Present Illness, Review Family/Social History and ROS, Past Medical/Surgical History, Allergies, Objective, Signature/Cosignature/Attestation Last Updated: 27-Oct-2017 22:48 by Ki Valdovinos) PATIENT PROFILE - Observed: 10/27/2017 Status: UNK Source: [place] [id number] 10:31 PM HOSPITALS REPOSITORY Profile: Initial Info: How to be AddressedBrandon/Frank Spoken Language PreferredEnglish Are you currently using the Personal Electronic Health Record or [facility]University [facility], [facility]no Are you interested in learning more about [employer] [place], [place] for the management of your healthnot at this time Stated Reason for AdmissionI have a blood clot initially I was just dizzy with headaches [facility] Medications Brought to Hospitalno General Health: Weight in kg99.7 kilogram(s) Weight in fle505 pound(s) Height in feet6 feet Height in inches4 inch(es) Height in cm193 centimeter(s) BMI (kg/m2)26.765 square meter Weight Methodstated Scale Typestanding Height Methodstated [facility] Based Care: How would you like to participate in your care?Whatever it takes to get better What is the number one concern for you during this hospitalization?Getting this blood clot taken care of What is the most important thing we can do to support you during this hospitalization?Getting the blood clot taken care of Is there anything we need to know to best care for you?n/a Substance: Current or Former Substance Use never: e-Cigarette/Vaping, Alcohol, Street Drugs YES: Cigarette/Tobacco Tobacco Cessation Education (provide if tobacco use within the last 12 mos) patient declined Other Tobacco Use CommentsCigars Health Mgmt: Symptoms/Conditions Managed at Homecardiovascular Cardiovascular Symptoms/Conditionshypertension; dysrhythmia Cardiovascular Management Strategiesmedication therapy Cardiovascular Managementmanaged Barriers to Managing Healthnone Relationship/Environ: Primary Source of Support/Comfortparent Lives Withalone Living Arrangementshouse Resource/Environmental Concernsnone [place]ticipated [place] with help/services Services Anticipated at Transitionnone Significant IndicatorsComplete Information Review: ? Allergies, Home Meds and Significant Events have been Reviewed and Verified with Patient/Familyyes ALLERGY, INTOLERANCE, ADVERSE EVENT: Allergies: ? penicillin: Drug, Hives/Urticaria, Active Electronic Signatures: Oksana Quinonez (STAFF N) (Signed 27-Oct-2017 22:40) Authored: Profile, Additional Information Last Updated: 27-Oct-2017 22:40 by Oksana Quinonez (STAFF N) ADMISSION RISK SCREEN Observed: 10/27/2017 Status: UNK Source: [facility] 10:23 PM HOSPITALS REPOSITORY Allergies: Allergies: ? penicillin: Hives/Urticaria Patient Verification: ? New W ID Band Applied in my Departmentyes ? Patient Identity Verified Bypatient ? ID Band FULL Name, include Middle, spelling matches patient's ID used for verificationyes ? ID Band Matches Patient ID used for Verficationyes ? ID Band MRN Matches EMR MRNyes Advance Directive: ? Advance Directive Medicalno ? Advance Directive Information Givenpatient/family declined Falls Screen: Type of Assessmentadmission High Risk Factorsgait instability Risk for Injury Associated with Fallrisk of surgical complications post surgery (recent abdominal, thoracic surgery, lower limb amputation) [place] Safety InterventionsWDL *orient to call system *instruct to call for assistance before getting out of bed *non-slip footwear when patient is out of bed *call [place] in reach *personal items and telephone in reach *physically safe environment (no spills or clutter) *bed in lowest position with wheels locked *appropriate side rails in place *room/bathroom lighting operational, light cord in reach *appropriate signage on door Family Violence Screen: ? Are you or have you been threatened or abused physically, emotionally, or sexually by anyone?no ? Has anyone ever threatened to hurt your family or your pets?no ? Does anyone try to keep you from having/contacting other friends or doing things outside your home?no ? Do you feel UNSAFE going back to the place where you are living?no ? Do you feel anyone has exploited or taken advantage of you financially or of your personal property?no ? Clinical assessment: Are there any apparent signs of injuries/behaviors that could be related to abuse/neglectno ? Social Service Consult for abuse/neglect needed this visit?no Functional screen: ? Functional Screen: In the recent/past 2-4 weeks, patient or family have noticeda significant change in speech or language, a significant change in ability to chew or swallow Learning Assessment (Patient): ? Patient is Able to be Assessed for Learningyes ? Factors Influencing Readiness to Learnacuteness of illness ? Factors that Impact Ability to Learnnone ? Devices/Methods Used to Communicateglasses ? Learning Preferenceswritten material; verbal instruction ? Cultural Considerationsnone ? Developmental Considerationsnone ? Latter-Day Considerationsnone Learning Assessment (Other Learner): ? Other learner availableno Suicide/Depression Screen: ? During the past month, have you often been bothered by feeling down, depressed or hopeless?no ? During the past month, have you often had little interest or pleasure in doing things?no ? Have you had any thoughts of harming yourself?no ? Have you had any thoughts of harming anyone else?no Adult Nutrition Screen: ? Have you recently lost weight without tryingno ? Have you been eating poorly because of a decreased appetiteno ? MST Score0 ? RiskMST = 0 or 1 Not at risk. Eating well with little or no weight loss ? Nutrition Consult needed this visit?no ? Can Patient Participate in Room Service?yes ? Patient requires Paper Dishes/Plastic Utensilsno Pain Screen: ? Pain Scalenumerical 0-10 ? Pain Scale Educationteaching provided ? Current Pain Level5 = Moderate ? Acceptable Pain Level3 = Mild ? Expression of Pain (nonverbal)verbalization ? Lifestyle Changes/Adaptations in Response to Painno change ? Chronic Painno Spiritual Screen: ? Are there any cultural, spiritual, sikhism practices/values/needs that are important for us to know?no ? Do you want a visit/item from Pastoral Care?no ? Would you like your Hvac Service Manager/Field Cane Scale Clerk notified?no CAGE: Is this an [place] patient at a [place] Center [place] [place] [facility] no Vaccinations: Vaccination - Influenza Vaccination Screen: ? Is it flu season? (between and )No Vaccination - Pneumonia Vaccination Screen: ? Patient has received a previous pneumonia vaccine:no/unknown... ? Immunocompetent persons with underlying chronic conditions or reside in terminal make up operator care facilitiesnone of these conditions ? Persons with Functional or Anatomic Asplenianone of these conditions ? Immunocompromised Personsnone of these conditions ? Pneumonia vaccine NOT indicated due to:patient DOES NOT have a condition that indicates vaccination Fadi: Skin - Fadi Scale: ? Fadi: Sensory Perception (response to environment)(4) no impairment ? Fadi: Moisture (degree skin exposed to moisture)(4) rarely moist ? Fadi: Activity (ability to walk)(4) walks frequently ? Fadi: Mobility (amount/control of body movement)(3) slightly limited ? Fadi: Nutrition (quality of food intake)(3) adequate ? Fadi: Friction and Shear(3) no apparent problem ? Fadi: Score21 Significant Indicatiors: Significant Indicators: Complete Pressure Injury: Pressure Injury Present on Admissionno Electronic Signatures: Oksana Quinonez (STAFF N) (Signed 27-Oct-2017 22:31) Authored: Admission Risk Screens, Vaccinations, Fadi, Pressure Injury Last Updated: 27-Oct-2017 22:31 by Oksana Quinonez (STAFF N) BEDSIDE GLUCOSE Collected: 10/27/2017 Status: F Source: LUX 1:52 PM [facility] REPOSITORY TYPE CODE TESTS RESULT OUT OF RANGE REFERENCE UNITS LAB L501.080 70-110 mg/dL Normal BEDSIDE GLU 82 Result Comment: MANAGEMENT OF PATIENT CARE PER NURSING PROTOCOL Performed By: #### L501.080 #### [facility] Laboratory Point of Care [address] [place] [address] CTA NECK W/WO Observed: 10/27/2017 Status: F Source: LUX CONTRAST 1:46 PM [facility] REPOSITORY [facility] Imaging Services [address] [place] [address] CTA Neck W/WO Contrast MR#: [id number] Acct: [id number] Name: FRANK RIVERA Rep #: [id number] : 1955 M 62 From: Lucrecia Jade PCP: Gracy Cuellar DO Status: REG Study: CTA Neck W/WO Contrast Date of Exam: 10/27/17 Exam# [id number] Ordering Dr: Rocco Ayala MD STUDY: CTA NECK WITH CONTRAST REASON FOR EXAM: Male, 62 years old. SLURRED SPEECH, FACIAL DROOP, DIFF SWALLOWING, RT SIDED CHANGES. RADIATION DOSAGE (If Supplied By Facility): CTDIvol = ( 29.88 ) mGy, DLP = ( 740.76 ) mGycm TECHNIQUE: CT angiography with multi-detector data acquisition was performed from the aortic arch to the skull base following intravenous administration of 100 ml of Isovue 370 contrast. MIP images were reconstructed from the axial data set. Post-processing of the angiographic images was performed, with multiplanar reformation and 3D reconstruction. Individualized dose optimization techniques were used for this CT. COMPARISON: None. FINDINGS: AORTIC ARCH: Normal visualized aortic arch. Normal origins of the brachiocephalic, left common carotid, and left subclavian arteries. RIGHT CAROTID ARTERIES: Normal right common carotid artery (CCA). There is mild atherosclerotic plaque formation with minimal narrowing of the right carotid bulb. There is mild atherosclerotic plaque formation of the origin of the right internal carotid artery with less than 50% cross sectional diameter stenosis. Normal visualized cervical portion of the right internal carotid artery. Normal origin of the right external carotid artery (ECA). LEFT CAROTID ARTERIES: Normal left common carotid artery (CCA). Normal left common carotid bulb. There is mild atherosclerotic plaque formation of the origin of the left internal carotid artery with less than 50% cross sectional diameter stenosis. Normal visualized cervical portion of the left internal carotid artery. Normal origin of the left external carotid artery (ECA). VERTEBRAL ARTERIES: There is occlusion of the distal left vertebral artery at the intradural segment. CT/CTA Neck W/WO Contrast IMPRESSION: Distal left vertebral artery occlusion. Electronically Signed: Lucrecia Jade MD at 15:23 EDT Tel , Service support , CC: Rocco Ayala MD; Gracy Cuellar DO Loss Prevention Operations Manager: Signed CTA HEAD W/WO Observed: 10/27/2017 Status: F Source: LUX CONTRAST 1:46 PM [facility] REPOSITORY [facility] Imaging Services [address] [place], [place] [address] [address] CTA Head W/WO Contrast MR#: [id number] Acct: [id number] Name: FRANK RIVERA Rep #: [id number] : 1955 M 62 From: Lucrecia Jade PCP: Gracy Cuellar DO Status: REG ER Study: CTA Head W/WO Contrast Date of Exam: 10/27/17 Exam# [id number] Ordering Dr: Rocco Ayala MD STUDY: CTA OF THE BRAIN REASON FOR EXAM: Male, 62 years old. SLURRED SPEECH, FACIAL DROOP, DIFF SWALLOWING, RT SIDED CHANGES. RADIATION DOSAGE (If Supplied By Facility): CTDIvol = ( 44.99 ) mGy, DLP = ( 801.73 ) mGycm TECHNIQUE: CT angiography was performed with a multi-detector CT scanner. Data acquisition was obtained from the skull base through the vertex following intravenous administration of ml of . MIP images were reconstructed from the axial data set. Post-processing of the angiographic images was performed, with multiplanar reformation and 3D reconstruction. Individualized dose optimization techniques were used for this CT. COMPARISON: None. FINDINGS: Normal bilateral petrous carotid arteries. There is calcified plaque formation of the right cavernous carotid artery, without a cross-sectional luminal stenosis. There is calcified plaque formation of the left cavernous carotid artery, without a cross-sectional luminal stenosis. Normal right A1 segments of the anterior cerebral artery. Normal left A1 segments of the anterior cerebral artery. Normal intact anterior communicating artery (ACOM). Normal bilateral A2 segments of the anterior cerebral arteries. Normal right M1 and M2 segments of the middle cerebral arteries, with a normal M1 bifurcation. Normal left M1 and M2 segments of the middle cerebral arteries, with a normal M1 bifurcation. There is non-visualization of the right posterior communicating artery (PCOM). There is non-visualization of the left posterior communicating artery (PCOM). The right vertebral artery is unremarkable. There is nonvisualization of the distal left vertebral artery at the intradural segment with suggestion of filling defect suspicious for thrombus. Normal basilar artery with a normal basilar bifurcation. The visualized bilateral superior cerebellar (SCA) arteries are normal. Normal bilateral P1, P2 and visualized P3 segments of the posterior cerebral arteries. There is no demonstrated aneurysm of the [place]. There is no demonstrated abnormality of the visualized brain. CT/CTA Head W/WO Contrast IMPRESSION: Occlusion/thrombus of the left vertebral artery. Further evaluation with MRI can be obtained. N.B. : The above information has been verbally conveyed by Lucrecia Jade MD to Rocco Ayala, Covering Physician, on 10/27/2017 15:52:34 (ET). Electronically Signed: Lucrecia Jade MD at 15:26 EDT Tel , Service support , CC: Rocco Ayala MD; Gracy FergusonKip Loss Prevention Operations Manager: Signed CBC W/DIFF, AUTOMATED Collected: 10/27/2017 Status: F Source: LUX 1:13 PM [facility] REPOSITORY TYPE CODE TESTS RESULT OUT OF RANGE REFERENCE UNITS LAB L100.1000 4.4-11.0 K/mm3 Normal WBC 5.4 LAB L100.1200 4.6-6.2 M/mm3 Low RBC 4.05 LAB L100.1300 13.0-16.5 g/dl Low HGB 11.4 LAB L100.1400 40-54 % Low HCT 36.3 LAB L100.1500 80-94 fL Normal MCV 89.6 LAB L100.1600 27.0-32.0 pg Normal MCH 28.1 LAB L100.1700 32-36 g/gl Low MCHC 31.4 LAB L100.1810 11.6-14.6 % High RDW CV 20.9 LAB L100.1820 35.1-43.9 fl High RDW SD 69.1 LAB L100.1900 150-450 K/mm3 Low PLT 127 LAB L100.2000 6.2-12.0 fl Normal MPV 9.5 LAB L100.2100 47-70 % Normal NEUT% 58.3 LAB L100.2200 19-41 % Normal LY% 33.8 LAB L100.2300 0-10 % Normal MONO% 7.5 LAB L100.2400 0-5 % Normal EO% 0.2 LAB L100.2500 0-1 % Normal BASO% 0.2 LAB L100.2550 0.0-0.9 % Normal IM GRAN % 0.000 Result Comment: IG% - Immature Granulocytes (promyelocytes, myelocytes and metamyelocytes) > 1% indicates that a LEFT SHIFT is Present. LAB L100.2620 2.0-7.7 X10 3/uL Normal Absolute Neut 3.1 LAB L100.2720 0.83-4.51 X10 3/ul Normal Absolute Lymph 1.81 LAB L100.7300 ANISO Normal 1+ Performed By: #### L100.0100 #### [facility] [address] [place], [place], [id number] PROTHROMBIN TIME W/INR Collected: 10/27/2017 Status: F Source: [place] 1:13 PM [facility] REPOSITORY TYPE CODE TESTS RESULT OUT OF RANGE REFERENCE UNITS LAB L300.4150 11.7-14.9 SECONDS High PROTIME 16.4 LAB L300.4200 Normal INR 1.3 Performed By: #### L300.3900, L300.4310 #### [facility] [address] [facility] [place], [place], [address] PARTIAL THROMBOPLAST Collected: 10/27/2017 Status: F Source: [place] TIME 1:13 PM [facility] REPOSITORY TYPE CODE TESTS RESULT OUT OF REFERENCE UNITS RANGE LAB L300.4310 24.1-36.2 Seconds High PTT 46.3 Performed By: #### L300.3900, L300.4310 #### [facility] [address] [place], [place], [id number] BASIC METABOLIC Collected: 10/27/2017 Status: F Source: LUX PROFILE (BMP) 1:13 PM [facility] REPOSITORY TYPE CODE TESTS RESULT OUT OF RANGE REFERENCE UNITS LAB L501.0100 74-106 mg/dL Normal GLU 81 Result Comment: Please note revised GLUCOSE reference range effective 2017. LAB L501.1000 7-18 mg/dL High BUN 21 LAB L501.1100 0.70-1.30 mg/dL Normal CREAT,SERUM 0.99 Result Comment: The validity of the calculated GFR AND GFRAA in patients over 70 years has not been determined. Clinical correlation is essential. LAB L501.1110 >60 mL/min Normal EST GFR 82 Result Comment: Non- GFR Calc LAB L501.1115 >60 mL/min Normal EST GFR - AA 99 Result Comment: GFR Calc LAB L501.1255 ml/min Normal Estimated CRCL 96.20 LAB L501.1300 10-20 RATIO High BUN/CRE 21.3 LAB L501.2200 8.5-10 mg/dL Low .1 CA 8.3 LAB L501.5300 136-14 mmol/L Normal 5 NA 139 LAB L501.5600 3.5-5. mmol/L Normal 1 K 4.6 LAB L501.5900 98-107 mmol/L High CL 110 LAB L501.6100 21.0-3 mmol/L Normal 2.0 CO2 28.0 LAB L501.6200 5-15 Low GAP 1 Performed By: #### L500.2500, L501.4010 #### [facility] [address] [place], [place], [address] TROPONIN-I Collected: 10/27/2017 Status: F Source: [place] 1:13 PM [facility] REPOSITORY TYPE CODE TESTS RESULT OUT OF RANGE REFERENCE UNITS LAB L501.4010 <0.045 ng/mL Normal 0.022 TROPONIN-I Result Comment: TROPONIN-I EXPECTED VALUES <0.045 Negative 0.045 - 0.590 Consistent with Cardiac Damage > OR = 0.600 Critical Value Not every elevated troponin is indicative of CT. These values should be used with clinical judgement in examining the patient's clinical picture for diagnosis. To establish a diagnosis of CT versus myocardial injury, there must be a demonstrated rise and/or fall in the troponin values, in addition to ischemic symptoms, EKG changes, new regional wall motion abnormality, and/or angiographical evidence. PLEASE NOTE: REFERENCE RANGES EDITED 17 Performed By: #### L500.2500, L501.4010 #### [facility] [address] [place], [address] EMERGENCY DEPARTMENT Observed: 10/27/2017 Status: F Source: [place] SUMMARY 7:55 AM [facility] REPOSITORY [facility] Medical Records Department [address] [place] [address] Emergency Department Summary 10/26/17 1345 MR#: [id number] Acct: [id number] Name: FRANK RIVERA Rep #: [id number] : 1955 62 From: Rocco Ayala MD PCP: Gracy Cuellar DO Status: DEP ER - ER Visit Summary Date of Service: 10/26/17 Chief Complaint: CT scan of brain History of Present Illness: The patient is a 62 M who presents from his primary doctor's office for headache and dizziness. Symptoms have been going on for days. He thought that he may be anemic. He has a history of GI bleeding. He has not noted any bleeding. His hemoglobin was done this morning and was unremarkable, stable. He also thought he might be dehydrated but his BMP was unremarkable. He was also concerned because he takes Eliquis that he might have intracranial bleeding. He denies any recent trauma. No weakness or numbness. No speech changes. No vision changes. Physical Examination: Afebrile and vital signs unremarkable. Nontoxic and in no acute distress. Head and neck are atraumatic. Cranial nerves grossly intact. Heart regular. Lungs clear. Abdomen soft. Skin appears normal. No focal or lateralizing neurologic is grossly. Test Results: Outside CBC and BMP were reviewed. I did obtain troponin which was normal. EKG showed a paced rhythm. Chest x-ray showed no acute process. CT head was normal. Emergency Department Course and Treatment: Patient was treated with Tylenol for headache. His vital signs and workup was unremarkable. He would like to go home. I advised him that we have not ruled out stroke, but that so far his workup in the emergency department has been normal. He will return for any new or worsening symptoms. Monitor for bleeding, increasing pain, or any neurologic symptoms. Patient discharged. Treatment Plan: As above Disposition: Discharged Impression: 1. Dizziness This note was generated with [employer] dictation software. It may contain incorrect words, spelling, and punctuation that were not noted in review of the chart prior to signing ED Disposition - Plan for ED Patient: Chief Complaint: Dizziness Referrals: Gracy Cuellar DO [Primary Care Provider] - What to do if you have Problems For any increased pain, shortness of breath, bleeding, nausea or vomiting, chest pain, or any unexpected problems, contact your Primary Care Provider. Call [facility] ([phone]) or report to the closest Emergency Room. Call 911 if necessary. 10/27/17 0755 <Electronically signed by Rocco Ayala MD> Date Rocco Ayala MD Cosigner Signature (If Indicated): Date CC: Gracy Cuellar DO DISCHARGE INSTRUCTION Observed: 10/27/2017 Status: F Source: LUX 7:55 AM [facility] REPOSITORY [facility] Medical Records Department [address] [place] [address] Discharge Instruction 10/26/17 1347 MR#: [id number] Acct: [id number] Name: FRANK RIVERA Fiona Rep #: [id number] : 1955 62 From: Rocco Ayala MD PCP: Gracy Cuellar DO Status: DEP ER ED Disposition - Plan for ED Patient: Chief Complaint: Dizziness Instructions: ED Dizziness UKO Referrals: Kip,Gracy, DO [Primary Care Provider] - What to do if you have Problems For any increased pain, shortness of breath, bleeding, nausea or vomiting, chest pain, or any unexpected problems, contact your Primary Care Provider. Call [facility] ([phone]) or report to the closest Emergency Room. Call 911 if necessary. 10/27/17 0759 <Electronically signed by Rocco Ayala MD> Date Rocco Ayala MD Cosigner Signature (If Indicated): Date CC: Gracy Cuellar DO OFFICE VISIT REPORT Observed: 10/26/2017 Status: F Source: LUX 8:[address] [place] [address] OFFICE VISIT Date of Service: MR#: [id number] Acct: [id number] Patient: FRANK RIVERA Rep #: [id number] : 1955 Provider: Radha Doyle Age/Sex: 62/M Location: [facility] [place] Status: Signed Intake Intake Visit Reasons: Amb Documentation Allergies Penicillins Allergy (Verified 10/26/17 10:27) Hives Medications ascorbic acid (vitamin C) 500 mg capsule 500 mg PO QDAY ea 03/26/17 [History Confirmed 05/28/17] cholecalciferol (vitamin D3) 5,000 unit capsule 5,000 unit PO QDAY 03/26/17 [History Confirmed 05/28/17] levothyroxine 200 mcg tablet 200 mcg PO QDAY tab 03/26/17 [History Confirmed 05/28/17] pantoprazole 40 mg tablet,delayed release 20 mg PO BID tab 03/26/17 [History Confirmed 05/28/17] cyanocobalamin (vit B-12) 500 mcg tablet 500 mcg PO QDAY 03/27/17 [History Confirmed 05/28/17] sucralfate 1 gram tablet 1 g PO TID tab 03/27/17 [History Confirmed 06/01/17] iron dextran 100 mg/2 mL (50 mg/mL) injection solution 50 mg IM QWEEK 03/31/17 [History Confirmed 06/01/17] acetaminophen 325 mg capsule 325 mg PO Q4H PRN 05/18/17 [History Confirmed 05/18/17] aspirin 81 mg tablet,delayed release 81 mg PO QDAY tab 05/18/17 [History Confirmed 06/01/17] magnesium oxide 400 mg capsule 400 mg PO QDAY cap 05/18/17 [History Confirmed 06/01/17] multivitamin tablet 1 tab PO QDAY 05/18/17 [History Confirmed 06/01/17] metoprolol tartrate 25 mg tablet 12.5 mg PO BID tab 06/01/17 [History Confirmed 06/01/17] apixaban 5 mg tablet 5 mg PO BID 06/08/17 [History Confirmed 06/08/17] atorvastatin 40 mg tablet 40 mg PO QDAY #30 tab 06/24/17 [Rx] hydralazine 25 mg tablet 25 mg PO Q8H #90 tab 06/24/17 [Rx] Nursing Note Patient came in this morning w/o and appointment at 0830 with c/o fatigue, dizziness, headaches and slurred speech. He said it's the same symptoms he had when his HGB was low and he needed transfusions. He said Dr Cuellar had ordered a CBC a month ago and he stopped in the lab and had it drawn this morning . He also admits to not drinking enough fluids and thinks he could be dehydrated. CBC and BMP unremarkable, troponin negative. No acute alerts from [facility] were sent remotely. BP sitting 118/62 hr 66, standing 112/64 hr 66. I talked with Dr Cuellar's office, he asked that I send patient to ER for a CT of the head. Patient agreed. 10/26/172002 <Electronically signed by Joie Whitaker MD> Date Joie Whitaker MD Cosigner Signature: Date (if applicable) CC: Radha Doyle TROPONIN-I Collected: 10/26/2017 Status: F Source: [place] 11:05 AM [facility] REPOSITORY TYPE CODE TESTS RESULT OUT OF RANGE REFERENCE UNITS LAB L501.4010 <0.045 ng/mL Normal 0.017 TROPONIN-I Result Comment: TROPONIN-I EXPECTED VALUES <0.045 Negative 0.045 - 0.590 Consistent with Cardiac Damage > OR = 0.600 Critical Value Not every elevated troponin is indicative of CT. These values should be used with clinical judgement in examining the patient's clinical picture for diagnosis. To establish a diagnosis of CT versus myocardial injury, there must be a demonstrated rise and/or fall in the troponin values, in addition to ischemic symptoms, EKG changes, new regional wall motion abnormality, and/or angiographical evidence. PLEASE NOTE: REFERENCE RANGES EDITED 17 Performed By: #### L501.4010 #### [facility] [address] [facility] [place], [address] BRAIN/HEAD WITHOUT Observed: 10/26/2017 Status: F Source: [place] CONTRAST 10:55 AM [facility] REPOSITORY [facility] Imaging Services [address] [place] [address] Brain/Head without Contrast MR#: [id number] Acct: [id number] Name: FRANK RIVERA Rep #: [id number] : 1955 M 62 From: Ahmet Fischer DO PCP: Gracy Cuellar DO Status: REG ER Study: Brain/Head without Contrast Date of Exam: 10/26/17 Exam# [id number] Ordering Dr: Rocco Ayala MD STUDY: CT BRAIN WITHOUT CONTRAST REASON FOR EXAM: Male, 62 years old. Dizziness, headache RADIATION DOSAGE (If Supplied By Facility): CTDIvol = ( 44.99 ) mGy, DLP = ( 846.73 ) mGycm TECHNIQUE: Transaxial CT imaging of the brain was performed without administration of intravenous contrast material. Sagittal and coronal reconstructed images are provided and reviewed. Individualized dose optimization techniques were used for this CT. COMPARISON: None. FINDINGS: Normal soft tissue structures. Normal calvarium. Normal size ventricles and extra-axial spaces for the patient's age. Normal white matter tracts of the cerebral hemispheres. Normal basal ganglia and thalami. Normal brainstem. Normal cerebellum. There is no intracranial hemorrhage. There are no findings of an acute ischemic infarction. Normal visualized paranasal sinuses. CT/Brain/Head without Contrast IMPRESSION: Normal unenhanced CT scan of the brain. Electronically Signed: Ahmet Fischer DO at 13:17 EDT Tel , Service support , CC: Rocco Ayala MD; Gracy Cuellar DO Loss Prevention Operations Manager: Signed CHEST PA AND LATERAL Observed: 10/26/2017 Status: F Source: LUX 10:55 AM [facility] REPOSITORY [facility] Imaging Services [address] [place] [address] Chest PA and Lateral MR#: [id number] Acct: [id number] Name: FRANK RIVERA Rep #: [id number] : 1955 M 62 From: Eliseo Mccarty MD PCP: Gracy Cuellar DO Status: REG ER Study: Chest PA and Lateral Date of Exam: 10/26/17 Exam# [id number] Ordering Dr: Rocco Ayala MD STUDY: X-RAY CHEST REASON FOR EXAM: Male, 62 years old. Dizziness, headache 2 or 3 days. TECHNIQUE: PA and lateral chest COMPARISON: None. FINDINGS: Left pectoral dual-lead pacer device. Median sternotomy. Atrial appendage clip. Clear bilateral lungs. Normal cardiomediastinal silhouette, soren and pleural margins. No acute osseous or upper abdominal process. RAD/Chest PA and Lateral IMPRESSION: No acute cardiopulmonary process. Electronically Signed: Eliseo Mccarty, at 13:21 EDT Tel , Service support , CC: Rocco Ayala MD; Gracy Cuellar DO Loss Prevention Operations Manager: Signed CBC W/DIFF, AUTOMATED Collected: 10/26/2017 Status: F Source: LUX 8:19 AM [facility] REPOSITORY TYPE CODE TESTS RESULT OUT OF RANGE REFERENCE UNITS LAB L100.1000 4.4-11.0 K/mm3 Normal WBC 4.9 LAB L100.1200 4.6-6.2 M/mm3 Low RBC 4.10 LAB L100.1300 13.0-16.5 g/dl Low HGB 11.6 LAB L100.1400 40-54 % Low HCT 36.8 LAB L100.1500 80-94 fL Normal MCV 89.8 LAB L100.1600 27.0-32.0 pg Normal MCH 28.3 LAB L100.1700 32-36 g/gl Low MCHC 31.5 LAB L100.1810 11.6-14.6 % High RDW CV 21.1 LAB L100.1820 35.1-43.9 fl High RDW SD 69.1 LAB L100.1900 150-450 K/mm3 Low PLT 114 LAB L100.2000 6.2-12.0 fl Normal MPV 9.2 LAB L100.2100 47-70 % Normal NEUT% 52.9 LAB L100.2200 19-41 % Normal LY% 37.2 LAB L100.2300 0-10 % Normal MONO% 9.3 LAB L100.2400 0-5 % Normal EO% 0.2 LAB L100.2500 0-1 % Normal BASO% 0.2 LAB L100.2550 0.0-0.9 % Normal IM GRAN % 0.200 Result Comment: IG% - Immature Granulocytes (promyelocytes, myelocytes and metamyelocytes) > 1% indicates that a LEFT SHIFT is Present. LAB L100.2620 2.0-7.7 X10 3/uL Normal Absolute Neut 2.6 LAB L100.2720 0.83-4.51 X10 3/ul Normal Absolute Lymph 1.84 LAB L100.4500 Normal SMEAR COMMENT COMMENT Result Comment: SLIDE SCANNED - 1+ ANISO. Performed By: #### L100.0100 #### [facility] [address] [place], [address] THYROID STIM HORMONE Collected: 10/26/2017 Status: F Source: [place] (TSH) 8:19 AM [facility] REPOSITORY Order Comment: Has Patient had X-rays with Contrast this admission? N TYPE CODE TESTS RESULT OUT OF RANGE REFERENCE UNITS LAB L501.9520 0.358-3.74 uIU/mL Low TSH 0.29 Performed By: #### L501.9520, L503.6150, L503.6550, L506.0400 #### [facility] [address] [place], [address] IRON Collected: 10/26/2017 Status: F Source: [place] 8:19 AM [facility] REPOSITORY Order Comment: Has Patient had X-rays with Contrast this admission? N TYPE CODE TESTS RESULT OUT OF RANGE REFERENCE UNITS LAB L503.6150 65-175 ug/dL Low IRON 57 Performed By: #### L501.9520, L503.6150, L503.6550, L506.0400 #### [facility] [address] [place], [address] FERRITIN Collected: 10/26/2017 Status: F Source: [place] 8:19 AM [facility] REPOSITORY Order Comment: Has Patient had X-rays with Contrast this admission? N TYPE CODE TESTS RESULT OUT OF RANGE REFERENCE UNITS LAB L503.6550 26-388 ng/mL Normal FERRITIN 58 Performed By: #### L501.9520, L503.6150, L503.6550, L506.0400 #### [facility] [address] [place], [address] T4 FREE DIRECT Collected: 10/26/2017 Status: F Source: [place] 8:19 [facility] [place] [place] REPOSITORY Order Comment: Has Patient had X-rays with Contrast this admission? N TYPE CODE TESTS RESULT OUT OF REFERENCE UNITS RANGE LAB L506.0400 0.76-1.46 ng/dL High T4 FREE 1.54 DIRECT Performed By: #### L501.9520, L503.6150, L503.6550, L506.0400 #### [facility] [address] [place], [address] BASIC METABOLIC Collected: 10/26/2017 Status: F Source: LUX PROFILE (BMP) 8:19 AM [facility] REPOSITORY TYPE CODE TESTS RESULT OUT OF RANGE REFERENCE UNITS LAB L501.0100 74-106 mg/dL Normal GLU 89 Result Comment: Please note revised GLUCOSE reference range effective 2017. LAB L501.1000 7-18 mg/dL Normal BUN 17 LAB L501.1100 0.70-1.30 mg/dL Normal CREAT,SERUM 0.95 Result Comment: The validity of the calculated GFR AND GFRAA in patients over 70 years has not been determined. Clinical correlation is essential. LAB L501.1110 >60 mL/min Normal EST GFR 86 Result Comment: Non- GFR Calc LAB L501.1115 >60 mL/min Normal EST GFR - AA 104 Result Comment: GFR Calc LAB L501.1300 10-20 RATIO Normal BUN/CRE 17.9 LAB L501.2200 8.5-10.1 mg/dL Low CA 8.0 LAB L501.5300 136-145 mmol/L NA Normal 138 LAB L501.5600 3.5-5.1 mmol/L K Normal 4.4 LAB L501.5900 98-107 mmol/L High CL 109 LAB L501.6100 21.0-32.0 mmol/L Normal CO2 26.0 LAB L501.6200 5-15 Low GAP 3 Performed By: #### L500.2500 #### [facility] [address] [place], [address] PACEMAKER CHECK Observed: 09/22/2017 Status: F Source: LUX 9:34 AM [facility] REPOSITORY [facility] [address] [place] [address] Pacemaker Check Date of Service: 09/14/171902 MR#: [id number] Acct: [id number] Name: FRANK RIVERA Rep #: [id number] : 1955 From: Radha Guzman Age/Sex: 62/M Location[place] [facility] [place] Status: Signed Comments Summary Comments: Remote Dual Chamber Pacemaker Evaluation: See attached scanned Latitude Report. Remote interrogation shows numerous MS episodes, <1% total time and 35 NSVT episodes since 07/01/17. Stored e-grams for NSVT episodes show what appears to be atrial tachycardia with RVR. Pt on Eliquis. Presenting rhythm shows AAI pacing @ 60 ppm with PAC's and pairs. HOUSE VISITOR=5%. Estimated battery life 9.5 yrs. Lead impedances, sensing and auto pace/sense thresholds remain stable. Normal remote PPM function. Pt notified remote transmission received and next f/u appt scheduled for in 3 mos. Device Device Date Interviewed: 09/14/17 Follow-up Location: remote Interview Reason: scheduled follow up Local [employer] Hazmat Driver: [employer] Name: ALFREDO Garcia Model: L111 Serial #: [id number] Implant Date: 05/13/17 Year(s): 0 Implant Physician: [facility] Patient Characteristics Atrial Indication: sick sinus syndrome Patient Substrate: Arrhythmia (Atrial Fib) Ejection fraction %: 50 to 54 By: Echo Underlying rhythm: Atrial fibrillation Pacemaker Dependent: No Device Characteristics Device: Dual Chamber Type: Pacemaker Remote Follow-Up: Latitude Leads Lead #1 Local [employer] Hazmat Driver Lead 1: [employer] Model Lead 1: 7741 Serial# Lead 1: [id number] Date Implanted Lead 1: 05/13/17 Position Lead 1: RV Lead #2 Local Company Hazmat Driver Lead 2: [employer] Model Lead 2: 7742 Serial# Lead 2: [id number] Date Implanted Lead 2: 05/13/17 Position Lead 2: RA Diagnostics Pacing % RA Pacin % RV Pacin Mode Switching % Mode switched: 1 Arrhythmias Non-Sust Episodes: 35 Darron Settings Darron Settings Pacemaker Mode DDD Lower Rate Limit (bpm) 60 Hysteresis Rate (bpm) Max Track Rate (bpm) 130 Max Sensor Rate (bpm) Max AV Delay (msec) 180 Max PV Delay (msec) Max PVARP (msec) 360 Output/Sensing V/PW (ms) auto2.0/04 auto1.7/0.4 Sensitivity RA RV LV Comments: AV Search+ on 300ms Billing Codes PM Device Codes: PM Dev Interrogate (Remot Assessment AND Plan Problems 1. Presence of permanent cardiac pacemaker Z95.0 [employer]; 2. Sick sinus syndrome I49.5 S/P permanent pacemaker 05/13/2017; 3. Atrioventricular block, type I I44.1 4. Premature atrial contractions I49.1 5. 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 ligation with 40 mm Atricure Atriclip with Dr. Land of [facility] 05/07/2017; 6. Paroxysmal atrial fibrillation I48.0 7. Sinus bradycardia R00.1 09/21/17 1900 <Electronically signed by Radha Guzman > Date Radha Guzman 09/22/17 0934<Electronically signed by Joie Whitaker MD> Cosigner Signature: Date (if applicable) Joie Whitaker MD CC: PACEMAKER CHECK Observed: 07/11/2017 Status: F Source: [place] 3:37 PM [facility] REPOSITORY [facility] [address] [facility] [place] [address] Pacemaker Check Date of Service: 07/01/17 0943 MR#: [id number] Acct: [id number] Name: FRANK RIVERA Rep #: [id number] : 1955 From: Radha Guzman Age/Sex: 62/M Location: [facility] [place] Status: Signed Comments Summary Comments: Sual Chamber Pacemaker Evaluation: New enrollee from [facility]. Implant 05/13/17 post AVR. Interrogation shows 798 MS episodes, <1% total time. Pt on Eloquis. Stored e-grams show atrial flutter with appropriate MS. No VT episodes since 06/09/17. Presenting rhythm shows NSR @ 64 bpm. HOUSE VISITOR=9%. Battery longevity approx 8 yrs. Lead impedances, sensing and pace/sense thresholds remain stable. MV sensor programmed off and rate response programmed off d/t HR histogram data showing pt's own intrinsic heart rate increases. Counters cleared. Next remote f/u appt scheduled for in 3 mos. Device or Lead Warnings or Advisories: Notification from [facility] that this device can have intermittent oversensing of MV sensor signal which may cause pre-syncope or syncope due to periods of pacing inhibition if pt is PPM dependent. Device Device Date Interviewed: 07/01/17 Follow-up Location: in office Interview Reason: routine follow up Local [employer] Hazmat Driver: [employer] Name: ALFREDO Allanbakari Model: L111 Serial #: [id number] Implant Date: 05/13/17 Year(s): 0 Implant Physician: Price Stovall MD @ [facility] Patient Characteristics Atrial Indication: sick sinus syndrome Patient Substrate: Arrhythmia (Atrial Fib) Ejection fraction %: 50 to 54 Underlying rhythm: Atrial fibrillation Pacemaker Dependent: No Device Characteristics Device: Dual Chamber Type: Pacemaker Remote Follow-Up: Latitude Device Physical Exam Yes Incision well healed Leads Lead #1 Local Company Hazmat Driver Lead 1: [employer] Model Lead 1: 7741 Serial# Lead 1: [id number] Date Implanted Lead 1: 05/13/17 Position Lead 1: RV Lead #2 Local Company Hazmat Driver Lead 2: [employer] Model Lead 2: 7742 Serial# Lead 2: [id number] Date Implanted Lead 2: 05/13/17 Position Lead 2: RA Diagnostics Pacing % RA Pacin % RV Pacin Mode Switching Total # Episodes: 798 % Mode switched: 1 Arrhythmias Non-Sust Episodes: 0 Measurements Battery Magnet Rate (bmp): 100 Battery Status: AMEENA Predicted Remaining Longevity (months or years): 8 years RA Measurements Signal Amplitude (mV): 1.9 Impedance (Ohms): 677 Threshold Voltage: 0.4 @ PW(ms): 0.4 RV Measurements Signal Amplitude (mV): 17.1 Impedance (Ohms): 646 Threshold Voltage: 1.2 @ PW(ms): 0.4 Darron Settings Darron Settings Pacemaker Mode DDD Lower Rate Limit (bpm) 60 Hysteresis Rate (bpm) Max Track Rate (bpm) 130 Max Sensor Rate (bpm) Max AV Delay (msec) 180 Max PV Delay (msec) Max PVARP (msec) 360 Output/Sensing V/PW (ms) auto2.0/04 auto1.7/0.4 Sensitivity RA RV LV Comments: AV Search+ on 300ms Billing Codes PM Device Codes: PM Dev Prog Eval, Dual Assessment AND Plan Problems 1. Presence of permanent cardiac pacemaker Z95.0 [employer]; 2. Sick sinus syndrome I49.5 S/P permanent pacemaker 05/13/2017; 3. S/P aortic valve replacement Z95.[address] Richi Tirfecta pericardial valve 4. Sinus bradycardia R00.1 5. Paroxysmal atrial fibrillation I48.0 07/11/17 1303 <Electronically signed by Radha Guzman > Date Radha Guzman 07/11/17 1537<Electronically signed by Joie Whitaker MD> Cosigner Signature: Date (if applicable) Joie Whitaker MD CC: EP CARDIOVERSION EXTERNAL Observed: 06/10/2017 Status: F Source: [facility] 10:56 AM [facility] REPOSITORY ? Successful cardioversion with 200 J synchronized shock of AF to sinus and A pacing ? Device check post cardioversion Recommendations Continue anticoagulation with eliquis for at least 4 weeks ECHOCARDIOGRAM Observed: 06/09/2017 Status: F Source: [facility] TRANSESOPHAGEAL (CHANDRAKANT) 4:52 PM [facility] REPOSITORY Patient: Frank Rivera [facility] Rec#: [id number] : 1955 Date: 06/09/2017 Age: 62y Height: 193 cm / 75.3 in Weight: 100.7 kg / 221.5 lbs Sex: M BSA: 2.32 Type: Outpatient Loc: [facility] Referring: DESIRE Reading: Shai Cain MD Performing: Shai Cain MD Nurse: Leslie Montana RN Rhythm: Demand Ventricular Pace HR: 70 BP: 148/78 Transesophageal Echocardiogram Conclusions 1. The left ventricular chamber size is normal.Regional wall motion is normal. The estimated ejection fraction is 65%, consistent with normal systolic function. 2. The right ventricular global systolic function is normal. 3. The left atrium is enlarged.No thrombus is visualized within the left atrium. 4. The left 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 appears ligated (surgical clip per report), no thrombus in the mouth of the RUDY.. No definite communication between the LA and RUDY, anatomy is distorted and challenging to see exact location of clip. 5. No thrombus is visualized in the right atrium. 6. A bio-prosthetic pericardial aortic valve is present. [address] Richi Trifecta pericardial valve. 7. There is trivial central aortic regurgitation. Leaflets appear normal. 8. There is mild to moderate tricuspid regurgitation. 9. There is plaque visualized in the transverse aorta. Procedure Info: The indication for study was atrial fibrillation / atrial flutter. The study quality is good. No TG views due to history of gastric bypass Ultrasound device: Worldscape. All staff members involved in the procedure completed a timeout prior to the start of the exam verifying correct patient identity and correct procedure to be completed: 06/09/2017 16:15:26. Agitated saline was used to assess for intracardiac shunt. Indication: Pre cardioversion Findings L Ventricle: The left ventricular chamber size is normal. Regional wall motion is normal. The estimated ejection fraction is 60-65%, consistent with normal systolic function. R Ventricle: The right ventricular cavity size is normal. A pacemaker wire is visualized in the right ventricle. The right ventricular global systolic function is normal. L Atrium: The left atrium is enlarged. No thrombus is visualized within the left atrium. The left 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 appears ligated. R Atrium: The right atrial cavity size is normal. A pacemaker wire is seen in the RA. No thrombus is visualized in the right atrium. Interatrial Septum: The interatrial septum is normal. A PFO was seen by agitated saline contrast. Mitral V: The mitral valve leaflets are mildly thickened. There is mild mitral regurgitation. MR vena contracta: 0.28. There is no evidence of mitral stenosis. Aortic V: A bio-prosthetic pericardial aortic valve is present. [address] Richi Trifecta pericardial valve on May 07, 2017 There is a trace of aortic regurgitation. There is no evidence of aortic stenosis. Tricuspid V: The tricuspid valve leaflets are normal. There is mild to moderate tricuspid regurgitation. There is no tricuspid stenosis. Pulmonic V: The pulmonic valve is not well visualized. There is a trace pulmonic regurgitation. There is no pulmonic stenosis. Aorta: The aortic root dimension is normal. There is plaque visualized in the transverse aorta. There is evidence of grade 3 (atheroma <= 5mm) atheroma in the transverse aorta. There is no plaque visualized in the descending aorta. Pericardium: The pericardium appears normal. CHANDRAKANT Detail: The procedure and risk were explained to the patient who consented to the study. Color flow Doppler interrogation and agitated saline contrast echo were performed to assess for the presence of patent foramen ovale. CHANDRAKANT Probe: Worldscape 3D CHANDRAKANT Inserted without difficulty. The probe was well-tolerated. No complications were noted. Lidocaine gel 5% 1ml x 1 was applied topically to bilateraly pharyngeal area. I was present during the procedure time-out, during the administration of sedation medications, and during the initial post-procedure monitoring. The total time I provided bryl-[id number]-[id number] service beginning with the administration of sedation medications until the patient was sufficiently recovered after the procedure was 25 minutes. Fentanyl 50 mcg IVP administered for the procedure. Midazolam 2 mg IVP administered for the procedure. No sedation-specific complications noted. Diagnosis codes: 01243 Echocardiography, transesophageal, real-time with image documentation (2D) (with or without M-mode recording); including probe placement, image acquisition, interpretation and report. 53321 Doppler echocardiography color flow velocity mapping. 58301 Moderate sedation services provided by the same physician or other qualified health healthcare management performing the diagnostic or therapeutic service that the sedation supports, requiring the presence of an independent trained observer to assist in the monitoring of the patient's level of consciousness and physiological status; initial 15 minutes of intraservice time, patient age 5 years or older. 12678 Moderate sedation services provided by the same physician or other qualified health healthcare management performing the diagnostic or therapeutic service that the sedation supports, requiring the presence of an independent trained observer to assist in the monitoring of the patient's level of consciousness and physiological status; each additional 15 minutes intraservice time (List separately in addition to code for primary service) ICD-10 Diagnosis Codes: *I48.1 Persistent atrial fibrillation *Z95.3 Presence of xenogenic heart valve Measurements Name Value Normal Range MR vena contracta 0.28 cm - Wallmotion BAS Normal BA Normal BAL Normal BOBBY Normal BI Normal BIS Normal MAS Normal MA Normal MAL Normal MIL Normal CT Normal MIS Normal Normal AA Normal AL Normal AI Normal APEX Normal (R) [employer]. All Rights Reserved. 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 CHEM 7 Collected: 06/09/2017 Status: F Source: [facility] 2:44 [facility] REPOSITORY TYPE CODE TESTS RESULT OUT OF REFERENCE UNITS RANGE LAB BUN 7-22 mg/dL BUN 19 LAB NA 133-143 mmol/L Sodium 139 LAB K 3.5-5.0 mmol/L Potassium 4.1 LAB CL 98-108 mmol/L Chloride 106 LAB CO2 22-30 mmol/L Carbon Dioxide 25 LAB GLUC 70-99 mg/dL Glucose 88 LAB CREA 0.70-1.30 mg/dL Creatinine 0.85 LAB GAP 7-17 mmol/L Anion Gap 12 LAB BC BUN/CREA Ratio 22 LAB OSMC 278-305 mOsm/kg Osmolality 293 (Calc) LAB GFR >60 mL/min/1.73 sqM Est GFR,non >60 Iraqi LAB GFRA >60 mL/min/1.73 sqM Est GFR, >60 Performed By: #### CHM7, PTPTT #### [facility] [address] [place] [address] [place] [address] PT*PTT Collected: 06/09/2017 Status: F Source: [facility] 2:44 [facility] REPOSITORY TYPE CODE TESTS RESULT OUT OF RANGE REFERENCE UNITS LAB PT 11.9-14.2 sec High PT 18.7 LAB INR 0.9-1.1 High INR 1.6 LAB PTT 24.0-34.3 sec High PTT 44.7 Performed By: #### CHM7, PTPTT #### [facility] [address] [place] [address] [place] [address] CR - HISTORY AND Observed: 06/09/2017 Status: F Source: [facility] 12:04 PM [facility] REPOSITORY [facility] Cardiac Rehab [address] [facility] [facility] [place] [address] CR - History AND Physical MR#: [id number] Acct: [id number] Name: FRANK RIVERA Rep #: [id number] : 1955 62 From: Bruno Perales ASSISTANT 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 Joie Whitaker Primary Diagnosis: Status post aortic valve replacement, replaced pacemaker device - History of Present Cardiac Event Onset Date: Enter Onset Date of cardiac illnesses in Comment field below Valve Replacement/Repair:: Yes - 05/07/2017 @ [facility] Pacemaker/ICD: Yes - 05/07/2017 Type of Symptoms:: 2011 started having, anemia iron deficiency, discovered had aortic valve stenosis, then this year bad enough that it was time to replace it. Interventions with present event:: Aortic valve replaced with a 27mm Saint Richi trifecta valve and pacemaker Were there any complications?: none, healed, actually ahead of recovery schedule - Medications Home Medications: Ambulatory Orders Medication Instructions Recorded ascorbic acid (vitamin C) 500 mg 500 mg PO QDAY ea 03/26/17 capsule cholecalciferol (vitamin D3) 5,000 5,000 unit PO QDAY 03/26/17 unit capsule - Allergies Allergies/Adverse Reactions: Allergies Penicillins Allergy (Verified 06/01/17 09:53) Hives - Sleep Disorder Evaluation Hx of Sleep Apnea: No Do you snore loudly (louder than talking or can be heard through closed doors)?: No Do you often feel tired/ fatigued/ sleepy during daytime?: No Has anyone observed you stop breathing during sleep?: No History of Hypertension (for STOP score): No STOP Results: Negative Advanced Directives - Advanced Directives Power of Automobile Appraiser: No Living Will: No Advance Directives Information Provided: Yes Advance Directives on File: No DNR Order?:: No Past Medical History - Problems and Co-Morbidities Problems AND Co-Morbidities: Smoking - former smoker quit in 2011., Dyslipidemia - Past Medical Illness Past Medical Illness: Carotid Artery Disease - left side carotid bruits, monitoring status. Other Medical Illnesses:: left 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 ligation, shortness of breath, abnormal EKG, ventricular hypertrophy, bruit of left carotid artery, anemia iron deficiency, hypothyroidism, retinal embolus. - Past Cardiac Illness Past Cardiac Illness: Valve Disorders - aortic and tricuspid valve insuffiency, Arrhythmias - atrial fibrillation, sick sinus syndrome, atrioventricular block type I, premature ventricular contractions, sinus bradycardia., Heart Murmur - since age of 13, Ejection Fraction - 65-70% - Other Other: Vision/Eye Problems - Cardiology Procedures/Interventions Cardiology Procedures/Interventions: Heart Catheterization, Echocardiogram, Stress Echocardiogram - Past Surgical History Surgical History: - - gastric bypass in 1995, wrist surgery, carpal tunnel surgery, knee surgery 2000, - Family History Summary Additional Family History: Father CAD, Mother CAD thyroid disorder, sister thyroid cancer. Review of Systems - Review of Systems Hints: Right click = Denies ([place]). 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 Denies: Shortness of Breath at Rest, Operative Discomfort, Dizziness/Lightheadedness, Fatigue, Sexual Changes Risk Factor Assessment - Chief Complaint Chief Complaint: patient is a very pleasent 62 year old male who presents to cardiac rehab today under the care of Dr. Whitaker. The patient states he has his follow up tomorrow at [facility] with his cardiac surgeon and expects a full release. - Pulse Pulse Rate: 70 Pulse Rhythm: Regular - Hypertension Blood Pressure Sitting - Right Arm: 110/68 - Stress Stress: - - pretty laid back type of individual - Obesity Height: 6 ft 2 in Weight:: 221 lb Weight in Pounds: 221.0 lbs Body Mass Index (BMI): 28.3 Nutritional Referral for Obesity: No - Physical Inactivity Physical Inactivity: Reg Exercise 30 min/day, Recreational activity - Risk Stratification Risk Guidelines: Lowest Risk: Risk Factor for Smoking, Risk Factor for Dyslipidemia, Risk Factor for Diabetes, Risk Factor for Obesity, Risk Factor for Hypertension, Risk Factor for Sedentary Lifestyle, Risk Factor for Depression - For Smoking Smoking Risk Guidelines: Smoking Low Risk: None or quit greater than 6 months ago. Smoking Moderate Risk: Smoker or quit 6 months or less ago. Smoking High Risk: Smoker - For Dyslipidemia Dyslipidemia Risk Guidelines: Low Risk: Moderate Risk: High Risk: 15-25% fat 25.1-29% fat >/= 30% fat. <7% sat fat 7-9% sat fat >9% sat fat. <150 mg chol 150-299 mg chol >/= 300 mg chol. LDL <100 LDL 100-129 LDL >/= 130. Chol/HDL ratio <5.0 Chol/HDL ratio 5.0-6.0 Chol/HDL ratio >6.0. Triglycerides <100 Triglycerides 100-149 Triglycerides >/= 150 - For Diabetes Mellitus Diabetes Risk Guidelines: Diabetes Low Risk: HgA1c <6.5% and/or FBG <120. Diabetes Moderate Risk: HgA1c 6.6-7.9% and/or FBG 120- 180. Diabetes High Risk: HgA1c >/= 8% and/or FBG >180 - For Obesity/Overweight Obesity/Overweight Risk Guidelines: Obesity Low Risk: BMI <25.0. Obesity Moderate Risk: BMI 25-29.9. Obesity High Risk: BMI >/= 30.0 - For Hypertension Hypertension Risk Guidelines: Hypertension Low Risk: Systolic <120 and Diastolic <80. Hypertension Moderate Risk: Systolic 120-139 and Diastolic 80-89. Hypertension High Risk: Systolic >/= 140 and Diastolic >/= 90 - For Sedentary Lifestyle Sedentary Lifestyle Risk Guidelines: Sedentary Lifestyle Low Risk: >/= 1,500 kcal/week. Sedentary Lifestyle Moderate Risk: 700-1,499 kcal/week. Sedentary Lifestyle High Risk: < 700 kcal/week - For Depression Depression Risk Guidelines: Depression Low Risk: Not clinically depressed. Depression Moderate Risk: Mildly depressed. 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 Hours worked per day:: 10 - 14 hours on duty Returned to work on:: 07/05/17 - [employer] date. - Hobbies, Recreation, Social Activities Hobbies: Sports - golfing, Other - ride motorcycle Recreational Activities: I am able to engage in all my recreational activities Marital Status - Status Marital Status: - Current Living Arrangements Living Environment:: Family - Children How many children do you have?: 2 - step daughters, 2 grandkids Do any of your children live nearby?: No - outside area [place] - Safety Do you feel safe in your surroundings?: Yes - Assistance Do you need any assistance at home?: none 06/08/17 1321 <Electronically signed by Bruno Perales CRT, RCP, JESSICA> Date Bruno Perales CRT, RCP, JESSICA Outcome assessment reviewed. Exercise plan approved as documented. Treatment plan and goals support patient needs/abilities. Continue with current plan. I certify the patient demonstrates improvement and remains willing and capable of participation. the patient continues to benefit from cardiac rehab services/training. The patient may continue at current intensity, endurance and modality and progress per protocol. 06/09/17 1204 <Electronically signed by Carlin Wilde MD> Cosigner Signature: Date Carlin Wilde MD CC: Signed XR CHEST PA AND Observed: 06/09/2017 Status: F Source: [facility] 11:43 AM [facility] REPOSITORY EXAM: XR CHEST PA AND LATERAL, 06/09/2017 10:46 AM COMPARISON: May 15, 2017 CLINICAL INDICATIONS: s/p AVR RELEVANT CLINICAL HISTORY: Z09:Encounter for follow-up examination after completed treatment for conditions other than malignant neoplasm FINDINGS: (Adequate technique) Implanted Devices: Left subclavian dual-chamber pacer in place. Chest Wall: Normal Soren: Normal Mediastinum: Normal Pleural Spaces: No pleural effusion. No pneumothorax. Lungs: Linear basilar atelectasis. Cardiac Silhouette: Stable. 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 clip. Thoracic Aorta: Normal Pulmonary Vessels: Normal, without PVH IMPRESSION: Cardiomegaly. Linear basilar atelectatic changes. Pacer in place. Postop changes. HROMBIN TIME W/INR Collected: 06/08/2017 Status: F Source: [place] 12:31 PM [facility] REPOSITORY TYPE CODE TESTS RESULT OUT OF RANGE REFERENCE UNITS LAB L300.4150 11.7-14.9 SECONDS High PROTIME 16.8 LAB L300.4200 Normal INR 1.4 Performed By: #### L300.3900 #### [facility] [facility] [place], [address] CARDIOLOGY VISIT Observed: 06/02/2017 Status: F Source: [place] REPORT 2:58 PM [facility] REPOSITORY [facility] [address] [facility] [place] [address] OFFICE VISIT Date of Service: 06/01/17 MR#: [id number] Acct: [id number] Name: FRANK RIVERA Rep #: [id number] : 1955 Provider: CRIS Encarnacion Age/Sex: 62/M Location: [facility] [place] [place] Status: Signed HPI HPI Details: FRANK RIVERA, is a 62 M who presents to the office today for a cardiovascular outpatient follow-up. Patient has a history of minimal coronary artery disease, aortic valve stenosis/insufficiency status post aortic valve replacement with a 27 mm Saint Richi trifecta valve in April 2017, second-degree AV block Mobitz 1 Wenckebach, sick sinus syndrome status post permanent pacemaker in April 2017, left 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 ligation procedure in April 2017, PACs/PVCs, and carotid artery bruit. Patient is status post recent aortic valve replacement, 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 ligation surgery, and permanent pacemaker placement and is here today for follow-up. Overall, patient is recovery well. He is taking minimal pain medication at this time. Pt. denies chest, arm, jaw, or neck discomfort. His exercise tolerance is stable with light activity. Pt. denies symptoms of CHF, palpitations, lightheadedness, dizziness, near syncope, or syncopal episodes. Pt. denies edema or claudication issues. Pt. denies orthopnea, PND, fever, chills, blood in urine, blood in stool, myalgia, or unexplainable fatigue. Intake Vital Signs06/01/17 Height 6 ft 4 in 06/01/17 Weight: 221 lb 06/01/17 Body Mass Index (BMI) 26.9 06/01/17 Blood Pressure 110/72 06/01/17 Blood Pressure Location Lt brachial Intake Visit Reasons: aortic valve replacement ([facility]) Delivery Of Shopping News Required: No Accompanied by: None Is patient in pain?: No Allergies Penicillins Allergy (Verified 06/01/17 09:53) Hives Medications ascorbic acid (vitamin C) 500 mg capsule 500 mg PO QDAY ea 03/26/17 [History Confirmed 05/28/17] cholecalciferol (vitamin D3) 5,000 unit capsule 5,000 unit PO QDAY 03/26/17 [History Confirmed 05/28/17] levothyroxine 200 mcg tablet 200 mcg PO QDAY tab 03/26/17 [History Confirmed 05/28/17] pantoprazole 40 mg tablet,delayed release 20 mg PO BID tab 03/26/17 [History Confirmed 05/28/17] cyanocobalamin (vit B-12) 500 mcg tablet 500 mcg PO QDAY 03/27/17 [History Confirmed 05/28/17] sucralfate 1 gram tablet 1 g PO TID tab 03/27/17 [History Confirmed 06/01/17] iron dextran 100 mg/2 mL (50 mg/mL) injection solution 50 mg IM QWEEK 03/31/17 [History Confirmed 06/01/17] acetaminophen 325 mg capsule 325 mg PO Q4H PRN 05/18/17 [History Confirmed 05/18/17] aspirin 81 mg tablet,delayed release 81 mg PO QDAY tab 05/18/17 [History Confirmed 06/01/17] atorvastatin 40 mg tablet 40 mg PO QDAY 05/18/17 [History Confirmed 06/01/17] hydralazine 25 mg tablet 25 mg PO Q8H tab 05/18/17 [History Confirmed 06/01/17] magnesium oxide 400 mg capsule 400 mg PO QDAY cap 05/18/17 [History Confirmed 06/01/17] multivitamin tablet 1 tab PO QDAY 05/18/17 [History Confirmed 06/01/17] metoprolol tartrate 25 mg tablet 12.5 mg PO BID tab 06/01/17 [History Confirmed 06/01/17] warfarin 2 mg tablet 2 mg PO .COMPLEX 06/01/17 [History Confirmed 06/01/17] Ejection fraction %: 65 to 70 PFSH Medical History 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) 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) Atrial fibrillation (Acute) Sinus bradycardia (Acute) Presence of permanent cardiac pacemaker (Chronic 05/13/17) Mitral valve insufficiency and aortic valve insufficiency (Acute) Sick sinus syndrome (Acute) SOB (shortness of breath) (Acute) Aortic stenosis (Chronic) 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, type I (Acute) Premature ventricular contraction (Acute) Abnormal EKG (Acute) Hyperlipidemia (Acute) Ventricular hypertrophy (Acute) Bruit of left carotid artery (Acute) Anemia, iron deficiency (Acute) Hypothyroidism (Acute) Retinal embolus (Acute) Tobacco abuse (Acute) Surgical History S/P aortic valve replacement (Chronic 05/07/17) History of carpal tunnel surgery (Resolved) History of gastric bypass (Resolved) History of knee surgery (Resolved) Family History Father CAD (coronary artery disease) Mother CAD (coronary artery disease) Thyroid disorder Sister Thyroid cancer Social History Smoking Status: Former smoker how long ago did patient quit smokin04/23/2017 alcohol intake: current alcohol intake frequency: a few times a month Alcohol type: hard liquor substance use type: does not use caffeine: Yes Type: coffee what type of physical activity do you participate in: none seatbelt use: always do you feel safe at home: Yes ROS Const Const: Negative for fatigue, weakness, body ache, fever(s) or chills ENT ENT: Negative for dizziness Cardio Chest Pain: No Palpitations: No Edema: None Muscle aches with walking: None Resp Respiratory: Negative for SOB with activity, SOB at rest, SOB orthopnea\SOB lying down or paroxysmal nocturnal dyspnea GI GI: Negative nausea, black,tarry stools, bright, red blood in stools or vomiting blood/hematemesis : Negative for hematuria or frequent nighttime urination/ nocturia Musc Musc: Negative for muscle aches/ myalgia Neuro Neuro: Negative for weakness, dizziness, lightheadedness, near syncope, syncope or orthostatic symptoms Endo Endo: Negative for fatigue Cardiology Exam Const Appearance: cooperative, healthy appearing, comfortable and no acute distress Orientation: alert, awake and oriented x3 Head Head: normal to inspection Mouth: oral mucosae normal Neck Neck: no JVD and normal visual inspection Carotids: normal carotid upstroke Chest Chest inspection: normal inspection of the chest and normal respiratory effort Auscultation: Bilateral: Clear to Auscultation Cardio Rate: regular rate Rhythm: regular rhythm Heart sounds: S1 normal and S2 normal; negative rub or gallop GI GI: normal to inspection Neuro General: alert, awake, oriented x3 and CN's II-XI intact bilaterally Skin Skin: no rashes or lesions noted and other Both surgical incision and pacemaker incision are well-healed. No drainage is noted. Surrounding skin of both incisions is pink and cool to touch. Extremities Pulses: Normal: Right Posterior Tibial Pulse, Left Posterior Tibial Pulse, Right Radial Pulse, Left Radial Pulse Lower Extremity Edema: None: Bilateral Psych Psychological: normal affect Supplemental Info Echocardiogram from April 2017 at [facility] showed an estimated ejection fraction of 65%, concentric hypertrophy of left ventricle, severely dilated left atrium, enlarged right atrium, trace aortic valve regurgitation, mean gradient of the aortic valve of 11 mmHg, aortic valve area by VTI is calculated at 2.12 cm , small pericardial effusion seen adjacent to the left ventricle, and a left pleural effusion. Status post [employer] permanent pacemaker placement set at DDDR 60/130. 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 Left main is angiographically normal, proximal LAD had mild luminal irregularities, LCx is angiographically normal, RCA had mild luminal irregularities, and aortic valve was severely calcified. Assessment AND Plan 1. Atherosclerosis of [place] coronary artery of [place] heart without angina pectoris I25.10 FAYE Braga Patient's most recent heart catheterization from March 2017 showed double vessel coronary artery disease of the LAD and RCA, and severe aortic valve calcification (prior to valvular will surgery). Patient denies any chest pain, arm pain, jaw pain, neck pain, shortness of breath, or fatigue suggestive of angina at this time. We will continue to monitor this. We will not make any medication regimen changes and will continue risk factor modification. Orders Orders: 2. Nonrheumatic aortic valve stenosis I35.0 S/P valve replacement with 27mm St. Richi Trifecta pericardial valve; FAYE Braga Patient is status post recent valve replacement. Patient echocardiogram in April 2017 after valvular surgery showed trace aortic valve regurgitation, mean aortic valve gradient of 11 mmHg, and an aortic valve area of 2.12 cm . Overall, he is doing very well. He does not acknowledge any significant change in his respiratory status, but he has also only engaged in minimal activity. He has his final appointment with Dr. Land at the end of this month. He will proceed with cardiac rehab here at [facility]. We will continue to monitor this through history, exam, and repeat echocardiogram as needed. 3. Paroxysmal atrial fibrillation I48.0 FAYE Braga Patient is status post recent left 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 ligation surgery. Patient's echocardiogram from January 2018 showed severely dilated left atrium and an enlarged right atrium. Per Dr. Land's office note, patient will return to [facility] for a cardioversion later this week. After that he will continue oral anticoagulation for approximately 4 weeks. We will continue to follow this. Patient was asked to contact our office if [facility] required a follow-up EKG with the [facility]. 4. Sick sinus syndrome I49.5 S/P permanent pacemaker 05/13/2017; FAYE Braga EKG in office today in office showed ventricular paced at 71 bpm. Patient will continue his pacemaker care here at [facility]. Follow- up appointment will be arranged for him. 5. Mixed hyperlipidemia E78.2 FAYE Braga Patient's most recent lipid panel from November 2016 showed cholesterol: 102, HDL: 35, LDL: 39, and triglycerides: 139. Patient is scheduled to have repeat lipid and liver profile in December 2017. We will wait for the results for further recommendation. Plan Detail Other Orders Orders: Additional Comments - Gopal Encarnacion NP-C Discussed the above patient with Dr. Wilde in Dr. Whitaker's absence, he agrees with the plan of care. Thank you for allowing us to participate in the patients plan of care, if you have any questions please do not hesitate to call. This note was generated using a voice recognition system and there may be incorrect words, spelling or punctuation that were not noted when reviewing the office note prior to saving. Coding Level of Care Code Off vis,est,level 3 Diagnoses Atherosclerosis of [place] coronary artery of [place] heart without angina pectoris I25.10 [place] vs. transplanted heart: [place] heart Nonrheumatic aortic valve stenosis I35.0 Cardiac valve disease etiology: nonrheumatic Paroxysmal atrial fibrillation I48.0 Atrial fibrillation type: paroxysmal Sick sinus syndrome I49.5 Mixed hyperlipidemia E78.2 Hyperlipidemia type: mixed hyperlipidemia Coding Level of Care Code Off vis,est,level 3 Diagnoses Atherosclerosis of [place] coronary artery of [place] heart without angina pectoris I25.10 [place] vs. transplanted heart: [place] heart Nonrheumatic aortic valve stenosis I35.0 Cardiac valve disease etiology: nonrheumatic Paroxysmal atrial fibrillation I48.0 Atrial fibrillation type: paroxysmal Sick sinus syndrome I49.5 Mixed hyperlipidemia E78.2 Hyperlipidemia type: mixed hyperlipidemia 06/02/17 0821 <Electronically signed by Gopal ENCISOC> Date Gopal Encarnacion TIME CLOCK MECHANICToñoC 06/02/17 1457<Electronically signed by Carlin Wilde MD> Cosigner Signature: Date (if applicable) Carlin Wilde MD CC: Gracy Cuellar DO 12 LEAD EKG PERFORMED Observed: 06/01/2017 Status: F Source: [facility] [place] 9:43 AM [facility] REPOSITORY [place] [address] [place] [address] 12 Lead EKG performed by [facility] 06/01/17940 MR#: [id number] Acct: [id number] Name: FRANK RIVERA Rep #: [id number] : 1955 62 From: Gopal Encarnacion TIME CLOCK MECHANICToñoC Attending Dr: Gopal Encarnacion TIME CLOCK MECHANIC Status: DEP AMB Ordering Dr: Gopal Encarnacion TIME CLOCK MECHANICToñoC Date: 06/01/17 [place] [facility] Sex: M C Admitted: BMS/12 Lead EKG performed by [facility] ECG Report Interpretation Electronic ventricular pacemaker Pacemaker ECG, No further analysis Electronically signed on 07/02/2017 at 16:22 by Joie Whitaker 07/02/17 1625 Date Gopal Encarnacion TIME CLOCK MECHANICWilton CC: Gracy Cuellar DO Date Dictated: 06/01/17940 Date Transcribed: 06/01/17940 Loss Prevention Operations Manager: CHARLY Signed PROTHROMBIN TIME W/INR Collected: 06/01/2017 Status: F Source: [facility] 9:00 AM [facility] REPOSITORY TYPE CODE TESTS RESULT OUT OF RANGE REFERENCE UNITS LAB L300.4150 11.7-14.9 SECONDS High PROTIME 15.0 LAB L300.4200 Normal INR 1.2 Performed By: #### L300.3900 #### [facility] [address] [place], [address] PROTHROMBIN TIME W/INR Collected: 05/25/2017 Status: F Source: [place] 9:06 AM [facility] REPOSITORY TYPE CODE TESTS RESULT OUT OF RANGE REFERENCE UNITS LAB L300.4150 11.7-14.9 SECONDS High PROTIME 15.9 LAB L300.4200 Normal INR 1.3 Performed By: #### [id number] #### [facility] [address] [place], [address] PROTHROMBIN TIME W/INR Collected: 05/18/2017 Status: F Source: [place] 9:28 AM [facility] REPOSITORY Order Comment: Comments: STANDING ORDER Comments: STANDING ORDER TYPE CODE TESTS RESULT OUT OF RANGE REFERENCE UNITS LAB L300.4150 11.7-14.9 SECONDS Normal PROTIME 14.9 LAB L300.4200 Normal INR 1.2 Performed By: #### [id number] #### [place] [facility] [place], [id number] XR CHEST PORTABLE Observed: 05/15/2017 Status: F Source: [facility] 11:24 AM [facility] REPOSITORY EXAM: XR CHEST PORTABLE, 05/15/2017 07:18 AM COMPARISON: Portable chest radiograph from May 12, 2017. CLINICAL INDICATIONS: eval effusion FINDINGS: (Adequate technique) Life Support Devices: Normal Chest Wall: Stable Soren: Normal Mediastinum: Normal Pleural Spaces: Stable left pleural effusion. Slight blunting of the right costophrenic angle suggests small effusion developing. No definite pneumothorax. Lungs: Stable bibasilar airspace disease. Cardiac Silhouette: Stable mild enlargement. Thoracic Aorta: Normal Pulmonary Vessels: Normal, without PVH IMPRESSION: 1. Stable left pleural effusion. Suggestion of small right pleural effusion developing. 2. Stable bibasilar airspace disease. I personally viewed and interpreted these images and I have reviewed and approved this report. GRAM (CBC AND Collected: 05/15/2017 Status: F Source: [facility]) 12:03 AM [facility] REPOSITORY TYPE CODE TESTS RESULT OUT OF REFERENCE UNITS RANGE LAB WBC 4.23-9.07 K/uL WBC Count 7.65 LAB RBC 4.63-6.08 M/uL Low RBC Count 3.58 LAB HGB 13.7-17.5 g/dL Low Hemoglobin 11.4 LAB HCT 40.1-51.0 % Low Hematocrit 34.0 LAB MCV 79.0-92.2 fL Mean Cell High Volume 95.0 LAB MCH 25.7-32.2 pg Mean Cell Hgb 31.8 LAB MCHC 32.3-36.5 g/dL Mean Cell Hgb Conc 33.5 LAB RDW 11.6-14.4 % RBC High Distribution 15.6 LAB PLT 163-337 K/uL Platelet Count 236 LAB MPV 9.4-12.4 fL Low Mean Platelet Volume 9.2 LAB NRBC 0.0-0.2 /100 WBC NUCLEATED RBC 0.0 Performed By: #### BERTHA, TWANM7, MGO, PTI #### [facility] [address] [place] [id number] [place] [address] [place] [address] CHEM 7 Collected: 05/15/2017 Status: F Source: [facility] 12:03 AM [facility] REPOSITORY TYPE CODE TESTS RESULT OUT OF REFERENCE UNITS RANGE LAB BUN 7-22 mg/dL BUN 17 LAB NA 133-143 mmol/L Sodium 134 LAB K 3.5-5.0 mmol/L Potassium 4.4 LAB CL 98-108 mmol/L Chloride 100 LAB CO2 22-30 mmol/L Carbon Dioxide 27 LAB GLUC 70-99 mg/dL Glucose High 126 LAB CREA 0.70-1.30 mg/dL Creatinine 0.82 LAB GAP 7-17 mmol/L Anion Gap 11 LAB BC BUN/CREA Ratio 21 LAB [facility] 278-305 mOsm/kg Osmolality 286 (Calc) LAB GFR >60 mL/min/1.73 sqM Est GFR,non >60 Iraqi LAB GFRA >60 mL/min/1.73 sqM Est GFR, >60 Performed By: #### BERTHA, TWANM7, MGO, PTI #### [facility] [address] [place] [address] [place] [address] MAGNESIUM Collected: 05/15/2017 Status: F Source: [facility] 12:03 AM [facility] REPOSITORY TYPE CODE TESTS RESULT OUT OF REFERENCE UNITS RANGE LAB MG 1.6-2.6 mg/dL Magnesium 2.1 Performed By: #### HEMMARGARITOC, TWANM7, MGO, PTI #### [facility] [address] [place] [id number] [place] [address] [place] [address] PT/INR BATTERY Collected: 05/15/2017 Status: F Source: [facility] 12:03 AM [facility] REPOSITORY TYPE CODE TESTS RESULT OUT OF RANGE REFERENCE UNITS LAB PT 11.9-14.2 sec High PT 15.3 LAB INR 0.9-1.1 High INR 1.2 Performed By: #### HEMOGC, CHM7, MGO, PTI #### [facility] [address] [place] [address] [facility] [address] [place], [place] [address] EP PROCEDURE - Observed: 05/14/2017 Status: F Source: [facility] EPS/ABLATION/DEVICE 10:29 AM [facility] REPOSITORY ? Successful PPM implantation This is a 62 y.o. male with a history of s/p recent SAVR who was referred for PPM. Atrial lead was recommended due to prevent pacemaker syndrome. MRI compatible device used due to age. ECG showed afib. EF by echo > 50%. Conclusions: Successful implantation of [employer] PPM with adequate pacing threshold, sensing and lead impedance. Recommendations: 1. Standard post-device care 2. Chest X-ray. 3. Device interrogation in the morning. 4. Remove outer dressing after 48 hours. Leave steri-strips intact for 7-10 days, then remove if it does not fall off by itself. 5. Device follow up as scheduled. 6. Hold heparin / anticoagulation for 24 hours. 7. F/up with device clinic in one month. Currently set at DDDR 60/130 8. Atrial Fibrillation management per EP consult service. (DCCV in 4 weeks after discharged) XR CHEST PORTABLE Observed: 05/14/2017 Status: F Source: [facility] 8:41 AM [facility] REPOSITORY EXAM: XR CHEST PORTABLE, 05/14/2017 05:28 AM COMPARISON: May 13, 2017 CLINICAL INDICATIONS: pleural effusion RELEVANT CLINICAL HISTORY: FINDINGS: (Adequate technique) Mild airspace disease persists in the right base. Worsening airspace disease in the left base with small pleural effusion. Suggestion of some mild airspace disease developing in the left upper lobe. No pneumothorax. Stable cardiomegaly. Sternotomy wires and left-sided ICD in place. IMPRESSION: Small left pleural effusion with mildly worsening basilar airspace disease. Stable mild airspace disease in the right base. Suggestion of new airspace disease developing in the left upper lobe. GRAM (CBC AND Collected: 05/14/2017 Status: F Source: [facility]) 1:13 AM [facility] REPOSITORY TYPE CODE TESTS RESULT OUT OF REFERENCE UNITS RANGE LAB WBC 4.23-9.07 K/uL WBC Count 7.55 LAB RBC 4.63-6.08 M/uL Low RBC Count 3.45 LAB HGB 13.7-17.5 g/dL Low Hemoglobin 10.9 LAB HCT 40.1-51.0 % Low Hematocrit 32.8 LAB MCV 79.0-92.2 fL Mean Cell High Volume 95.1 LAB MCH 25.7-32.2 pg Mean Cell Hgb 31.6 LAB MCHC 32.3-36.5 g/dL Mean Cell Hgb Conc 33.2 LAB RDW 11.6-14.4 % RBC High Distribution 15.9 LAB PLT 163-337 K/uL Platelet Count 216 LAB MPV 9.4-12.4 fL Low Mean Platelet Volume 9.2 LAB NRBC 0.0-0.2 /100 WBC NUCLEATED RBC 0.0 Performed By: #### HEMOGC, CHM7, CRP, MGO, PALB, PTI #### [facility] [address] [place] [address] [place] [address] CHEM 7 Collected: 05/14/2017 Status: F Source: [facility] 1:13 AM [facility] REPOSITORY TYPE CODE TESTS RESULT OUT OF REFERENCE UNITS RANGE LAB BUN 7-22 mg/dL BUN 16 LAB NA 133-143 mmol/L Low Sodium 132 LAB K 3.5-5.0 mmol/L Potassium 4.8 LAB CL 98-108 mmol/L Chloride 101 LAB CO2 22-30 mmol/L Carbon Dioxide 30 LAB GLUC 70-99 mg/dL Glucose High 132 LAB CREA 0.70-1.30 mg/dL Creatinine 0.74 LAB GAP 7-17 mmol/L Low Anion Gap 6 LAB BC BUN/CREA Ratio 22 LAB [facility] 278-305 mOsm/kg Osmolality 283 (Calc) LAB GFR >60 mL/min/1.73 sqM Est GFR,non >60 Iraqi LAB GFRA >60 mL/min/1.73 sqM Est GFR, >60 Performed By: #### HEMOGC, CHM7, CRP, MGO, PALB, PTI #### [facility] [address] [place] [id number] [place] [address] [place] [address] C REACTIVE PROTEIN Collected: 05/14/2017 Status: F Source: [facility] 1:13 AM [facility] REPOSITORY TYPE CODE TESTS RESULT OUT OF REFERENCE UNITS RANGE LAB CRP <10.00 mg/L C High Reactive 64.00 Protein Performed By: #### HEMOGC, CHM7, CRP, MGO, PALB, PTI #### [facility] [address] [place] [address] [place] [address] MAGNESIUM Collected: 05/14/2017 Status: F Source: [facility] 1:13 [facility] REPOSITORY TYPE CODE TESTS RESULT OUT OF REFERENCE UNITS RANGE LAB MG 1.6-2.6 mg/dL Magnesium 2.0 Performed By: #### HEMOGC, CHM7, CRP, MGO, PALB, PTI #### [facility] [address] [place] [id number] [place] [address] [place] [address] PREALBUMIN Collected: 05/14/2017 Status: F Source: [facility] 1:13 [facility] REPOSITORY TYPE CODE TESTS RESULT OUT OF REFERENCE UNITS RANGE LAB PALB 17-34 mg/dL Low Prealbumin 8 Performed By: #### HEMOGC, CHM7, CRP, MGO, PALB, PTI #### [facility] [address] [place] [address] [facility] [address] [place] [address] PT/INR BATTERY Collected: 05/14/2017 Status: F Source: [facility] 1:13 [facility] REPOSITORY TYPE CODE TESTS RESULT OUT OF RANGE REFERENCE UNITS LAB PT 11.9-14.2 sec High PT 14.4 LAB INR 0.9-1.1 INR 1.1 Performed By: #### HEMOGC, CHM7, CRP, MGO, PALB, PTI #### [facility] [address] [place] [address] [facility] [address] [place], [place] [address] XR CHEST PA AND Observed: 05/13/2017 Status: F Source: [facility] LATERAL 10:08 PM [facility] REPOSITORY EXAM: XR CHEST PA AND LATERAL, 05/13/2017 21:20 PM COMPARISON: Chest radiograph dated 05/13/2017 CLINICAL INDICATIONS: Rule out Pneumothorax Following Device Implantation FINDINGS: (Adequate technique) Implanted Devices: Interval placement of a left subclavian approach dual-chamber cardiac pacing device with leads terminating projected over the right atrium and ventricle. Epicardial pacing wires are in place. The right internal jugular approach sheath has been removed. Chest Wall: No appreciable acute displaced fracture. Median sternotomy wires are intact and aligned. Multiple remote right-sided rib fractures. Soren: Normal Mediastinum: Normal Pleural Spaces: Small bilateral layering pleural effusions persist. No pneumothorax. Lungs: Persistent left greater than right basilar opacities. Cardiac Silhouette: Mild enlargement of the cardiac silhouette is similar to prior imaging. Status post aortic valve replacement and left 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 clip. Thoracic Aorta: Calcific atherosclerosis with normal contour. Pulmonary Vessels: Normal, without PVH IMPRESSION: 1. No evidence of postprocedural pneumothorax following placement of a left subclavian approach dual-chamber cardiac pacing device. 2. Epicardial pacing wires are also present. 3. Persistent small bilateral layering pleural effusions with associated bibasilar atelectasis, left greater than right. A superimposed consolidative process, such as pneumonia, cannot be excluded radiographically. CHEST PORTABLE Observed: 05/13/2017 Status: F Source: [facility] 11:03 AM [facility] REPOSITORY EXAM: XR CHEST PORTABLE, 05/13/2017 05:44 AM COMPARISON: May 12, 2017 CLINICAL INDICATIONS: post op heart surgery RELEVANT CLINICAL HISTORY: FINDINGS: (Adequate technique) Bibasilar airspace disease again noted without interval change. Probable small pleural effusions, left greater than right again noted. No pneumothorax. Stable cardiac megaly with left 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 clip. Sternotomy wires in place. IMPRESSION: No significant change with bibasilar airspace disease and small effusions, left greater than GRAM (CBC AND Collected: 05/13/2017 Status: F Source: [facility]) 2:07 AM [facility] REPOSITORY TYPE CODE TESTS RESULT OUT OF REFERENCE UNITS RANGE LAB WBC 4.23-9.07 K/uL WBC Count 6.95 LAB RBC 4.63-6.08 M/uL Low RBC Count 3.57 LAB HGB 13.7-17.5 g/dL Low Hemoglobin 11.3 LAB HCT 40.1-51.0 % Low Hematocrit 33.7 LAB MCV 79.0-92.2 fL Mean Cell High Volume 94.4 LAB MCH 25.7-32.2 pg Mean Cell Hgb 31.7 LAB MCHC 32.3-36.5 g/dL Mean Cell Hgb Conc 33.5 LAB RDW 11.6-14.4 % RBC High Distribution 15.9 LAB PLT 163-337 K/uL Platelet Count 206 LAB MPV 9.4-12.4 fL Mean Platelet Volume 9.5 LAB NRBC 0.0-0.2 /100 WBC NUCLEATED RBC 0.0 Performed By: #### HEMOGC, CHM7, MGO #### [facility] [address] [place] [address] [place] [address] CHEM 7 Collected: 05/13/2017 Status: F Source: [facility] 2:07 AM [facility] REPOSITORY TYPE CODE TESTS RESULT OUT OF REFERENCE UNITS RANGE LAB BUN 7-22 mg/dL BUN 19 LAB NA 133-143 mmol/L Sodium 137 LAB K 3.5-5.0 mmol/L Potassium 4.5 LAB CL 98-108 mmol/L Chloride 103 LAB CO2 22-30 mmol/L Carbon Dioxide 26 LAB GLUC 70-99 mg/dL Glucose High 130 LAB CREA 0.70-1.30 mg/dL Creatinine 0.70 LAB GAP 7-17 mmol/L Anion Gap 13 LAB BC BUN/CREA Ratio 27 LAB [facility] 278-305 mOsm/kg Osmolality 292 (Calc) LAB GFR >60 mL/min/1.73 sqM Est GFR,non >60 Iraqi LAB GFRA >60 mL/min/1.73 sqM Est GFR, >60 Performed By: #### HEMOGC, CHM7, MGO #### [facility] [address] [place] [address] [facility] [address] [place], [place] [address] MAGNESIUM Collected: 05/13/2017 Status: F Source: [facility] 2:07 AM [facility] REPOSITORY TYPE CODE TESTS RESULT OUT OF REFERENCE UNITS RANGE LAB MG 1.6-2.6 mg/dL Magnesium 2.0 Performed By: #### HEMOGC, CHM7, MGO #### [facility] [address] [place] [address] [facility] [address] [place], [place] [address] XR CHEST PORTABLE Observed: 05/12/2017 Status: F Source: [facility] 10:25 AM [facility] REPOSITORY EXAM: XR CHEST PORTABLE, 05/12/2017 05:35 AM COMPARISON: 1 day earlier CLINICAL INDICATIONS: post op heart surgery RELEVANT CLINICAL HISTORY: FINDINGS: (Adequate technique) Right IJ introducer and postop changes. Patchy left basilar atelectasis. Mild edema. Bilateral skin folds. No pneumothorax. IMPRESSION: No significant change. Bilateral skin folds. No definite pneumothorax. GRAM (CBC AND Collected: 05/12/2017 Status: F Source: [facility]) 2:44 AM [facility] REPOSITORY TYPE CODE TESTS RESULT OUT OF REFERENCE UNITS RANGE LAB WBC 4.23-9.07 K/uL WBC Count 6.82 LAB RBC 4.63-6.08 M/uL Low RBC Count 3.41 LAB HGB 13.7-17.5 g/dL Low Hemoglobin 10.9 LAB HCT 40.1-51.0 % Low Hematocrit 32.7 LAB MCV 79.0-92.2 fL Mean Cell High Volume 95.9 LAB MCH 25.7-32.2 pg Mean Cell Hgb 32.0 LAB MCHC 32.3-36.5 g/dL Mean Cell Hgb Conc 33.3 LAB RDW 11.6-14.4 % RBC High Distribution 16.1 LAB PLT 163-337 K/uL Platelet Count 180 LAB MPV 9.4-12.4 fL Mean Platelet Volume 9.6 LAB NRBC 0.0-0.2 /100 WBC NUCLEATED RBC 0.0 Performed By: #### HEMOGC, CHM7, MGO #### [facility] [id number] [place] [address] [address] [place] [address] CHEM 7 Collected: 05/12/2017 Status: F Source: [facility] 2:44 AM [facility] REPOSITORY TYPE CODE TESTS RESULT OUT OF REFERENCE UNITS RANGE LAB BUN 7-22 mg/dL BUN 21 LAB NA 133-143 mmol/L Sodium 134 LAB K 3.5-5.0 mmol/L Potassium 4.3 LAB CL 98-108 mmol/L Chloride 102 LAB CO2 22-30 mmol/L Carbon Dioxide 28 LAB GLUC 70-99 mg/dL Glucose 99 LAB CREA 0.70-1.30 mg/dL Creatinine 0.73 LAB GAP 7-17 mmol/L Anion Gap 8 LAB BC BUN/CREA Ratio 29 LAB [facility] 278-305 mOsm/kg Osmolality 285 (Calc) LAB GFR >60 mL/min/1.73 sqM Est GFR,non >60 Iraqi LAB GFRA >60 mL/min/1.73 sqM Est GFR, >60 Performed By: #### HEMOGC, CHM7, MGO #### [place] [address] MAGNESIUM Collected: 05/12/2017 Status: F Source: [facility] 2:44 AM [facility] REPOSITORY TYPE CODE TESTS RESULT OUT OF REFERENCE UNITS RANGE LAB MG 1.6-2.6 mg/dL Magnesium 2.0 Performed By: #### HEMOGC, CHM7, MGO #### [facility] [address] [place] [address] ECHOCARDIOGRAM Observed: 05/11/2017 Status: F Source: [facility] 5:47 PM [facility] REPOSITORY Patient: Frank Rivera Med Rec#: [id number] : 1955 Date: 05/11/2017 Age: 62y Height: 193 cm / 75.3 in Weight: 96 kg / 211.2 lbs Sex: M BSA: 2.27 Room#: [id number] Type: Inpatient Loc: [place] Fellow (int): Daniel Galeana MD Referring: SINDY Reading: Shai Cain MD Vice President Of Software Development: Rosalina Burt CS Rhythm: A-Fib HR: 80 BP: 115/67 Transthoracic Echocardiogram Conclusions 1. The patient is s/p aortic valve replacement with 27mm [employer] Richi Trifecta pericardial valve as well as left 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 closure with 40mm Atricure Atriclip on 05/07/17. 2. The left ventricular chamber size is normal.Concentric hypertrophy is present.The estimated ejection fraction is greater than 65%, consistent with hyperdynamic systolic function. 3. The right ventricular global systolic function is normal. 4. The left atrium is severely dilated.The right atrium is enlarged. 5. A bio-prosthetic pericardial aortic valve is present. [address] Richi Trifecta Pericardial valve on 05/07/17 6. There is a trace of aortic regurgitation. 7. The mean gradient of the aortic valve is 11 mmHg. The aortic valve area, by VTI's, is calculated at 2.12 cm2. 8. There is a small pericardial effusion.The pericardial effusion is seen adjacent to the left ventricle. 9. A left pleural effusion is present. Procedure Info: Study indication: atrial fibrillation / atrial flutter. Study indication: prosthetic valvular heart disease. Indication: s/p AVR, A-fib Findings L Ventricle: The left ventricular chamber size is normal. Concentric hypertrophy is present. The estimated ejection fraction is greater than 65%, consistent with hyperdynamic systolic function. The left ventricle appears hyperdynamic. Abnormal left ventricular diastolic function is observed. R Ventricle: The right ventricular cavity size is normal. The right ventricular global systolic function is normal. L Atrium: The left atrium is severely dilated. R Atrium: The right atrium is enlarged. Interatrial Septum: The interatrial septum is normal. Mitral V: The mitral valve leaflets appear normal. There is a trace of mitral regurgitation. There is no evidence of mitral stenosis. Aortic V: A bio-prosthetic pericardial aortic valve is present. [address] Richi Trifecta Pericardial valve on 05/07/17 There is a trace of aortic regurgitation. There is no evidence of aortic stenosis. The LVOT diameter is 2 cm. The mean gradient of the aortic valve is 11 mmHg. The peak instantaneous gradient of the aortic valve is 19 mmHg. The aortic valve area, by peak velocities, is calculated at 1.86 cm2. The aortic valve area, by VTI's, is calculated at 2.12 cm2. Tricuspid V: The tricuspid valve leaflets are normal. There is a trace tricuspid regurgitation. The right ventricular systolic pressure is calculated at 26 mmHg. There is no tricuspid stenosis. Pulmonic V: The pulmonic valve appears normal. There is no evidence of pulmonic regurgitation. There is no pulmonic stenosis. Aorta: There is mild dilatation of the ascending aorta. The aortic root dimension is normal. Pulmonic A: The pulmonary artery appears normal. Pericardium: There is a small pericardial effusion. The pericardial effusion is seen adjacent to the left ventricle. A left pleural effusion is present. Venous: The inferior vena cava is not visualized. Diagnosis codes: 18064 Echocardiography, transthoracic, real-time with image documentation (2D), includes M-mode recording, when performed, complete, with spectral Doppler echocardiography, and with color flow Doppler echocardiography. ICD-10 Diagnosis Codes: *I48.91 Unspecified atrial fibrillation *Z95.2 Presence of prosthetic heart valve Measurements Name Value Normal Range RVID d (basal) 4 cm - RVID d (midcavity) 2.2 cm - RV base to apex length 7.6 cm - IVSd (2D) 1.3 cm - LVPWd (2D) 1.2 cm - IVS:LVPW ratio (2D) 1.08 ratio - LVIDd (2D) 5.1 cm (3.8 - 5.7) LVIDs (2D) 3.2 cm (2.2 - 4) LVIDd (2D) index 2.25 cm/m2 - LVIDs (2D) index 1.41 cm/m2 - LV FS (2D) 37 % (20 - 40) Aortic root diameter (2D1.41 cm/m2 - Ao root diameter (2D) 3.2 cm - Sinotubular junction 3 cm - Ascending Ao 3.8 cm - Name Value Normal Range LA Area 2 CH 27 cm2 - LA Area 4 CH 35 cm2 (<21) LA ESV BP (A/L) index 52.4 ml/m2 - LA ESV BP (MOD) 113 ml - LA ESV BP (MOD) index 49.78 ml/m2 - RA AREA 4CH 24 cm2 - LV mass (2D) 255.46 g - LV mass (2D) index 112.54 g/m2 - Name Value Normal Range MV E-wave Vmax 1.4 m/sec - MV deceleration time 364 msec - LV septal e' Vmax 0.08 m/sec - LV lateral e' Vmax 0.09 m/sec - LV average e' Vmax 0.08 m/sec - LV E:e' septal ratio 17.5 ratio - LV E:e' lateral ratio 15.56 ratio - LV average E:e' ratio 17.5 ratio - Name Value Normal Range AV Vmax 2.2 m/sec - AV VTI 37 cm - AV peak gradient 19 mmHg (<36) AV mean gradient 11 mmHg (<20) LVOT diameter 2 cm (1.7 - 2.5) LVOT Vmax 1.3 m/sec - LVOT VTI 25 cm - LVOT peak gradient 7 mmHg - LVOT mean gradient 4 mmHg - DOI (VTI) 0.68 ratio - DOI (Vmax) 0.59 ratio - SV LVOT 78.5 ml - CO LVOT 6.28 l/min - Cardiac index 2.77 l/min/m2 - JANEL (continuity Vmax) 1.86 cm2 - JANEL (continuity Vmax) in0.82 cm2/m2 - JANEL (continuity VTI) 2.12 cm2 - JANEL (continuity VTI) ind0.93 cm2/m2 - Name Value Normal Range MV Vmax 1.5 m/sec - MV VTI 42 cm - MV peak gradient 9 mmHg - MV mean gradient 3 mmHg - MVA (continuity VTI) 1.87 cm2 - Name Value Normal Range TR Abdifatah 2 m/sec - TR peak gradient 16 mmHg - RAP 10 mmHg - RVSP 26 mmHg - Name Value Normal Range PV Vmax 1 m/sec (0.6 - 0.9) PV peak gradient 4 mmHg - RVOT Vmax 0.9 m/sec - RVOT peak gradient 3 mmHg - Wallmotion BAS Normal BA Normal BAL Normal BOBBY Normal BI Normal BIS Normal MAS Normal MA Normal MAL Normal MIL Normal CT Normal MIS Normal Normal AA Normal AL Normal AI Normal APEX Normal (R) [employer]. All Rights Reserved. 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 XR CHEST PORTABLE Observed: 05/11/2017 Status: F Source: [facility] 9:37 AM [facility] REPOSITORY EXAM: XR CHEST PORTABLE, 05/11/2017 05:33 AM COMPARISON: Comparison is made to the study of the previous day. CLINICAL INDICATIONS: post op heart surgery RELEVANT CLINICAL HISTORY: FINDINGS: (Adequate technique) Stable right IJ introducer and postop changes. Basilar atelectasis. Cardiomegaly. No major change. IMPRESSION: No major change. Observed: 05/11/2017 Status: F Source: [facility] TYPE AND CROSS 12:50 AM [facility] REPOSITORY ABO/RH(D): A POSITIVE ANTIBODY SCREEN: NEGATIVE Performed By: #### XM #### [facility] [place] [address] HEMOGRAM (CBC AND Collected: 05/11/2017 Status: F Source: [facility]) 12:39 AM [facility] REPOSITORY TYPE CODE TESTS RESULT OUT OF REFERENCE UNITS RANGE LAB WBC 4.23-9.07 K/uL WBC Count 6.89 LAB RBC 4.63-6.08 M/uL Low RBC Count 3.34 LAB HGB 13.7-17.5 g/dL Low Hemoglobin 10.6 LAB HCT 40.1-51.0 % Low Hematocrit 32.1 LAB MCV 79.0-92.2 fL Mean Cell High Volume 96.1 LAB MCH 25.7-32.2 pg Mean Cell Hgb 31.7 LAB MCHC 32.3-36.5 g/dL Mean Cell Hgb Conc 33.0 LAB RDW 11.6-14.4 % RBC High Distribution 16.7 LAB PLT 163-337 K/uL Low Platelet Count 145 LAB MPV 9.4-12.4 fL Mean Platelet Volume 9.9 LAB NRBC 0.0-0.2 /100 WBC NUCLEATED RBC 0.0 Performed By: #### HEMOGC, CHM7, CRP, MGO, PALB #### [facility] [address] [place] [id number] [place] [address] [place] [address] CHEM 7 Collected: 05/11/2017 Status: F Source: [facility] 12:39 AM [facility] REPOSITORY TYPE CODE TESTS RESULT OUT OF REFERENCE UNITS RANGE LAB BUN 7-22 mg/dL BUN High 26 LAB NA 133-143 mmol/L Sodium 135 LAB K 3.5-5.0 mmol/L Potassium 4.0 LAB CL 98-108 mmol/L Chloride 104 LAB CO2 22-30 mmol/L Carbon Dioxide 27 LAB GLUC 70-99 mg/dL Glucose High 139 LAB CREA 0.70-1.30 mg/dL Creatinine 0.82 LAB GAP 7-17 mmol/L Anion Gap 8 LAB BC BUN/CREA Ratio 32 LAB [facility] 278-305 mOsm/kg Osmolality 291 (Calc) LAB GFR >60 mL/min/1.73 sqM Est GFR,non >60 Iraqi LAB GFRA >60 mL/min/1.73 sqM Est GFR, >60 Performed By: #### HEMOGC, CHM7, CRP, MGO, PALB #### [facility] [address] [place] [address] [place] [address] C REACTIVE PROTEIN Collected: 05/11/2017 Status: F Source: [facility] 12:39 AM [facility] REPOSITORY TYPE CODE TESTS RESULT OUT OF REFERENCE UNITS RANGE LAB CRP <10.00 mg/L C High Reactive 157.70 Protein Performed By: #### HEMOGC, CHM7, CRP, MGO, PALB #### [facility] [address] [place] [address] [facility] [address] [place] [address] MAGNESIUM Collected: 05/11/2017 Status: F Source: [facility] 12:39 AM [facility] REPOSITORY TYPE CODE TESTS RESULT OUT OF REFERENCE UNITS RANGE LAB MG 1.6-2.6 mg/dL Magnesium 2.1 Performed By: #### HEMOGC, CHM7, CRP, MGO, PALB #### [facility] [address] [place] [address] [facility] [address] [place], [place] [address] PREALBUMIN Collected: 05/11/2017 Status: F Source: [facility] 12:39 AM [facility] REPOSITORY TYPE CODE TESTS RESULT OUT OF REFERENCE UNITS RANGE LAB PALB 17-34 mg/dL Low Prealbumin 6 Performed By: #### HEMOGC, CHM7, CRP, MGO, PALB #### [facility] [address] [place] [address] [facility] [address] [place], [place] [address] XR CHEST PORTABLE Observed: 05/10/2017 Status: F Source: [facility] 9:25 AM [facility] REPOSITORY EXAM: XR CHEST PORTABLE, 05/10/2017 05:51 AM COMPARISON: 1 day earlier CLINICAL INDICATIONS: post op heart surgery RELEVANT CLINICAL HISTORY: FINDINGS: (Adequate technique) Stable right IJ introducer and postop changes. Left basilar atelectasis and mild edema. Worsening atelectasis at the right base. Stable cardiomegaly. IMPRESSION: Worsening right basilar atelectasis. No other change. GRAM (CBC AND Collected: 05/10/2017 Status: F Source: [facility]) 1:08 AM [facility] REPOSITORY TYPE CODE TESTS RESULT OUT OF REFERENCE UNITS RANGE LAB WBC 4.23-9.07 K/uL WBC Count 7.50 LAB RBC 4.63-6.08 M/uL Low RBC Count 3.35 LAB HGB 13.7-17.5 g/dL Low Hemoglobin 10.6 LAB HCT 40.1-51.0 % Low Hematocrit 31.7 LAB MCV 79.0-92.2 fL Mean Cell High Volume 94.6 LAB MCH 25.7-32.2 pg Mean Cell Hgb 31.6 LAB MCHC 32.3-36.5 g/dL Mean Cell Hgb Conc 33.4 LAB RDW 11.6-14.4 % RBC High Distribution 17.0 LAB PLT 163-337 K/uL Low Platelet Count 127 LAB MPV 9.4-12.4 fL Mean Platelet Volume 10.1 LAB NRBC 0.0-0.2 /100 WBC NUCLEATED RBC 0.0 Performed By: #### INNA STONE, MGO #### [facility] [address] [place] [address] [place] [address] CHEM 7 Collected: 05/10/2017 Status: F Source: [facility] 1:08 AM [facility] REPOSITORY TYPE CODE TESTS RESULT OUT OF REFERENCE UNITS RANGE LAB BUN 7-22 mg/dL BUN High 26 LAB NA 133-143 mmol/L Sodium 133 LAB K 3.5-5.0 mmol/L Potassium 4.2 LAB CL 98-108 mmol/L Chloride 102 LAB CO2 22-30 mmol/L Carbon Dioxide 27 LAB GLUC 70-99 mg/dL Glucose 90 LAB CREA 0.70-1.30 mg/dL Creatinine 0.79 LAB GAP 7-17 mmol/L Anion Gap 8 LAB BC BUN/CREA Ratio 33 LAB [facility] 278-305 mOsm/kg Osmolality 284 (Calc) LAB GFR >60 mL/min/1.73 sqM Est GFR,non >60 Iraqi LAB GFRA >60 mL/min/1.73 sqM Est GFR, >60 Performed By: #### INNA STONE, MGBakari #### [facility] [address] [place] [address] [place] [address] MAGNESIUM Collected: 05/10/2017 Status: F Source: [facility] 1:08 AM [facility] REPOSITORY TYPE CODE TESTS RESULT OUT OF REFERENCE UNITS RANGE LAB MG 1.6-2.6 mg/dL Magnesium 2.2 Performed By: #### INNA STONE, MGO #### [facility] [address] [place] [id number] [place] [address] [place] [address] XR CHEST PORTABLE Observed: 05/09/2017 Status: F Source: [facility] 11:20 AM [facility] REPOSITORY EXAM: XR CHEST PORTABLE, 05/09/2017 05:33 AM COMPARISON: Comparison is made to the study of the previous day. CLINICAL INDICATIONS: post op heart surgery RELEVANT CLINICAL HISTORY: FINDINGS: (Adequate technique) Stable right IJ introducer and postop changes. Left basilar atelectasis. Stable heart size. No major change. IMPRESSION: No change. GRAM (CBC AND Collected: 05/09/2017 Status: F Source: [facility]) 2:39 AM [facility] REPOSITORY TYPE CODE TESTS RESULT OUT OF REFERENCE UNITS RANGE LAB WBC 4.23-9.07 K/uL WBC Count High 9.51 LAB RBC 4.63-6.08 M/uL Low RBC Count 3.78 LAB HGB 13.7-17.5 g/dL Low Hemoglobin 11.7 LAB HCT 40.1-51.0 % Low Hematocrit 35.3 LAB MCV 79.0-92.2 fL Mean Cell High Volume 93.4 LAB MCH 25.7-32.2 pg Mean Cell Hgb 31.0 LAB MCHC 32.3-36.5 g/dL Mean Cell Hgb Conc 33.1 LAB RDW 11.6-14.4 % RBC High Distribution 17.4 LAB PLT 163-337 K/uL Low Platelet Count 120 LAB MPV 9.4-12.4 fL Mean Platelet Volume 9.6 LAB NRBC 0.0-0.2 /100 WBC NUCLEATED RBC 0.0 Performed By: #### HEMOGC, CHM7, MGO, PTPTT #### [facility] [address] [place] [address] [place] [address] CHEM 7 Collected: 05/09/2017 Status: F Source: [facility] 2:39 AM [facility] REPOSITORY TYPE CODE TESTS RESULT OUT OF REFERENCE UNITS RANGE LAB BUN 7-22 mg/dL BUN High 26 LAB NA 133-143 mmol/L Low Sodium 132 LAB K 3.5-5.0 mmol/L Potassium 4.5 LAB CL 98-108 mmol/L Chloride 103 LAB CO2 22-30 mmol/L Carbon Dioxide 26 LAB GLUC 70-99 mg/dL Glucose High 103 LAB CREA 0.70-1.30 mg/dL Creatinine 1.02 LAB GAP 7-17 mmol/L Anion Gap 8 LAB BC BUN/CREA Ratio 25 LAB [facility] 278-305 mOsm/kg Osmolality 284 (Calc) LAB GFR >60 mL/min/1.73 sqM Est GFR,non >60 Iraqi LAB GFRA >60 mL/min/1.73 sqM Est GFR, >60 Performed By: #### HEMOGC, CHM7, MGO, PTPTT #### [facility] [address] [place] [address] [place] [address] MAGNESIUM Collected: 05/09/2017 Status: F Source: [facility] 2:39 AM [facility] REPOSITORY TYPE CODE TESTS RESULT OUT OF REFERENCE UNITS RANGE LAB MG 1.6-2.6 mg/dL Magnesium 2.2 Performed By: #### HEMOGC, CHM7, MGO, PTPTT #### [facility] [address] [place] [address] [place] [address] PT*PTT Collected: 05/09/2017 Status: F Source: [facility] 2:39 AM [facility] REPOSITORY TYPE CODE TESTS RESULT OUT OF RANGE REFERENCE UNITS LAB PT 11.9-14.2 sec High PT 15.1 LAB INR 0.9-1.1 High INR 1.2 LAB PTT 24.0-34.3 sec PTT 34.0 Performed By: #### HEMOGC, CHM7, MGO, PTPTT #### [facility] [address] [place] [address] [address] [place] [address] *POC GLUCOSE BATTERY Collected: 05/08/2017 Status: F Source: [facility] 9:17 PM [facility] REPOSITORY TYPE CODE TESTS RESULT OUT OF REFERENCE UNITS RANGE LAB GLUP 70-99 mg/dL High Glucose (poc 107 device) Result Comment: No BRAVE per RN: PATIENT TYPE LAB PCSTYP *POC Capillary SAMPLE TYPE Blood *POC GLUCOSE BATTERY Collected: 05/08/2017 Status: F Source: [facility] 5:10 PM [facility] REPOSITORY TYPE CODE TESTS RESULT OUT OF REFERENCE UNITS RANGE LAB GLUP 70-99 mg/dL High Glucose (poc 114 device) Result Comment: No BRAVE per RN: PATIENT TYPE LAB PCSTYP *POC Arterial SAMPLE TYPE *POC GLUCOSE BATTERY Collected: 05/08/2017 Status: F Source: [facility] 12:48 PM [facility] REPOSITORY TYPE CODE TESTS RESULT OUT OF REFERENCE UNITS RANGE LAB GLUP 70-99 mg/dL High Glucose (poc 136 device) Result Comment: No BRAVE per RN: PATIENT TYPE LAB PCSTYP *POC Arterial SAMPLE TYPE XR CHEST PORTABLE Observed: 05/08/2017 Status: F Source: [facility] 11:55 AM [facility] REPOSITORY EXAM: XR CHEST PORTABLE, 05/08/2017 05:57 AM COMPARISON: May 07, 2017. CLINICAL INDICATIONS: post op CABG FINDINGS: (Adequate technique) Life Support Devices: Right IJ PA catheter is been removed with sheath remaining. Endotracheal tube is been removed. Chest Wall: Prior median sternotomy with intact sternal wires. Remote, healed right-sided rib fractures. Soren: Normal Mediastinum: Normal Pleural Spaces: No definite pleural effusion. No definite pneumothorax. Lungs: Low lung volumes with suggestion of mild interstitial edema in the lung bases. Cardiac Silhouette: Stable contour with postoperative changes Thoracic Aorta: Normal Pulmonary Vessels: Probable mild interstitial edema. IMPRESSION: Probable mild interstitial edema, although exacerbated by low lung volumes. Interval extubation and removal of a right IJ PA catheter with remaining sheath. *POC GLUCOSE BATTERY Collected: 05/08/2017 Status: F Source: [facility] 5:14 AM [facility] REPOSITORY TYPE CODE TESTS RESULT OUT OF REFERENCE UNITS RANGE LAB GLUP 70-99 mg/dL High Glucose (poc 123 device) Result Comment: No BRAVE per RN: PATIENT TYPE LAB PCSTYP *POC Arterial SAMPLE TYPE MAGNESIUM Collected: 05/08/2017 Status: F Source: [facility] 4:59 AM [facility] REPOSITORY TYPE CODE TESTS RESULT OUT OF REFERENCE UNITS RANGE LAB MG 1.6-2.6 mg/dL High Magnesium 3.2 Performed By: #### MGO, CHM7 #### [facility] [place] [address] [place] [address] [place] [address] CHEM 7 Collected: 05/08/2017 Status: F Source: [facility] 4:59 AM [facility] REPOSITORY TYPE CODE TESTS RESULT OUT OF REFERENCE UNITS RANGE LAB BUN 7-22 mg/dL BUN High 26 LAB NA 133-143 mmol/L Sodium 135 LAB K 3.5-5.0 mmol/L Potassium 4.9 LAB CL 98-108 mmol/L Chloride 106 LAB CO2 22-30 mmol/L Carbon Dioxide 23 LAB GLUC 70-99 mg/dL Glucose High 105 LAB CREA 0.70-1.30 mg/dL Creatinine 1.24 LAB GAP 7-17 mmol/L Anion Gap 11 LAB BC BUN/CREA Ratio 21 LAB [facility] 278-305 mOsm/kg Osmolality 290 (Calc) LAB GFR >60 mL/min/1.73 Low sqM Est GFR,non 59 Iraqi LAB GFRA >60 mL/min/1.73 sqM Est GFR, >60 Performed By: #### MGO, TWANM7 #### [facility] [address] [place] [address] HEMOGRAM (CBC AND Collected: 05/07/2017 Status: F Source: [facility]) 9:50 PM [facility] REPOSITORY TYPE CODE TESTS RESULT OUT OF REFERENCE UNITS RANGE LAB WBC 4.23-9.07 K/uL WBC Count 8.33 LAB RBC 4.63-6.08 M/uL RBC Count Low 4.03 LAB HGB 13.7-17.5 g/dL Hemoglobin Low 12.7 LAB HCT 40.1-51.0 % Hematocrit Low 38.3 LAB MCV 79.0-92.2 fL Mean Cell High Volume 95.0 LAB MCH 25.7-32.2 pg Mean Cell Hgb 31.5 LAB MCHC 32.3-36.5 g/dL Mean Cell Hgb Conc 33.2 LAB RDW 11.6-14.4 % RBC High Distribution 18.0 LAB PLT 163-337 K/uL Platelet Count Low 116 LAB MPV 9.4-12.4 fL Mean Platelet Volume NOT MEASURED LAB NRBC 0.0-0.2 /100 WBC NUCLEATED RBC 0.0 Performed By: #### HEMOGC, CHM7, MGO, PTPTT #### [facility] [address] [place] [id number] [place] [address] [place] [address] CHEM 7 Collected: 05/07/2017 Status: F Source: [facility] 9:50 PM [facility] REPOSITORY TYPE CODE TESTS RESULT OUT OF REFERENCE UNITS RANGE LAB BUN 7-22 mg/dL BUN 22 LAB NA 133-143 mmol/L Sodium 136 LAB K 3.5-5.0 mmol/L Potassium 4.9 LAB CL 98-108 mmol/L Chloride 107 LAB CO2 22-30 mmol/L Carbon Dioxide 22 LAB GLUC 70-99 mg/dL Glucose High 133 LAB CREA 0.70-1.30 mg/dL Creatinine 1.21 LAB GAP 7-17 mmol/L Anion Gap 12 LAB BC BUN/CREA Ratio 18 LAB [facility] 278-305 mOsm/kg Osmolality 292 (Calc) LAB GFR >60 mL/min/1.73 sqM Est GFR,non >60 Iraqi LAB GFRA >60 mL/min/1.73 sqM Est GFR, >60 Performed By: #### HEMOGC, CHM7, MGO, PTPTT #### [facility] [address] [place] [address] [address] [place] [address] MAGNESIUM Collected: 05/07/2017 Status: F Source: [facility] 9:50 PM [facility] REPOSITORY TYPE CODE TESTS RESULT OUT OF REFERENCE UNITS RANGE LAB MG 1.6-2.6 mg/dL Magnesium 2.5 Performed By: #### HEMOGC, CHM7, MGO, PTPTT #### [facility] [address] [place] [address] [address] [place] [address] PT*PTT Collected: 05/07/2017 Status: F Source: [facility] 9:50 PM [facility] REPOSITORY TYPE CODE TESTS RESULT OUT OF RANGE REFERENCE UNITS LAB PT 11.9-14.2 sec High PT 14.7 LAB INR 0.9-1.1 High INR 1.2 LAB PTT 24.0-34.3 sec PTT 32.4 Performed By: #### HEMOGC, CHM7, MGO, PTPTT #### [facility] [address] [place] [address] [facility] [address] [place], [place] [address] *POC GLUCOSE BATTERY Collected: 05/07/2017 Status: F Source: [facility] 5:19 PM [facility] REPOSITORY TYPE CODE TESTS RESULT OUT OF REFERENCE UNITS RANGE LAB GLUP 70-99 mg/dL High Glucose (poc 126 device) Result Comment: Meets BRAVE per RN: PATIENT TYPE LAB PCSTYP *POC Arterial SAMPLE TYPE *POC GLUCOSE BATTERY Collected: 05/07/2017 Status: F Source: [facility] 4:14 PM [facility] REPOSITORY TYPE CODE TESTS RESULT OUT OF REFERENCE UNITS RANGE LAB GLUP 70-99 mg/dL High Glucose (poc 131 device) Result Comment: Meets BRAVE per RN: PATIENT TYPE LAB PCSTYP *POC Arterial SAMPLE TYPE XR ABDOMEN 1 VIEW Observed: 05/07/2017 Status: F Source: [facility] PORTABLE 3:43 PM [facility] REPOSITORY EXAM: XR ABDOMEN 1 VIEW PORTABLE, 05/07/2017 14:17 PM COMPARISON: July 05, 2010. CLINICAL INDICATIONS: post operative heart surgery Upon arrival to unit; FINDINGS: Tubes: The side-port of the OG tube is in the distal esophagus and the tip of the tube is in the fundus of the stomach. Chest tubes are visualized. No gross free air. There is a non obstructive bowel gas pattern. No organomegaly or mass effect. No significant calcific densities or definite stones. Visualized osseous structures are unremarkable for the patient's age. IMPRESSION: Tube positioning as above. If this positioning is not desired, then recommend advancing the tube 7 to 8 cm. CHEST PORTABLE Observed: 05/07/2017 Status: F Source: [facility] 3:42 PM [facility] REPOSITORY EXAM: XR CHEST PORTABLE, 05/07/2017 14:17 PM COMPARISON: PA and lateral chest regressor March 24, 2017. CLINICAL INDICATIONS: postop heart surgery RELEVANT CLINICAL HISTORY: On arrival to unit.; FINDINGS: (Adequate technique) Life Support Devices: Endotracheal tube placed, tip in the midtrachea. Nasogastric tube courses into the stomach but the tip extends out of the [id number]. Mediastinal drain noted at the base centrally. Interval placement of a [place] catheter with tip projected over the main pulmonary artery. Chest Wall: Median sternotomy wires. Healed right posterolateral seventh through ninth rib fractures. No acute osseous abnormalities. Soren: Normal Mediastinum: Stable contour. Pleural Spaces: No definite pleural effusion. No definite pneumothorax. Lungs: Clear Cardiac Silhouette: Stable enlargement. Status post aortic valve repair and left 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 clip. Thoracic Aorta: Normal Pulmonary Vessels: Normal, without PVH Other: Surgical clips projected over left upper quadrant consistent with prior gastric bypass surgery. IMPRESSION: 1. Life support devices and postop changes, status post aortic valve repair. No complication. I personally viewed and interpreted these images and I have reviewed and approved this report. *POC GLUCOSE BATTERY Collected: 05/07/2017 Status: F Source: [facility] 3:22 PM [facility] REPOSITORY TYPE CODE TESTS RESULT OUT OF REFERENCE UNITS RANGE LAB GLUP 70-99 mg/dL High Glucose (poc 105 device) Result Comment: Meets BRAVE per RN: PATIENT TYPE LAB PCSTYP *POC Arterial SAMPLE TYPE *POC GLUCOSE BATTERY Collected: 05/07/2017 Status: F Source: [facility] 2:30 PM [facility] REPOSITORY TYPE CODE TESTS RESULT OUT OF REFERENCE UNITS RANGE LAB GLUP 70-99 mg/dL High Glucose (poc 142 device) Result Comment: Meets BRAVE per RN: PATIENT TYPE LAB PCSTYP *POC Arterial SAMPLE TYPE HEMOGRAM (CBC AND Collected: 05/07/2017 Status: F Source: [facility]) 2:22 PM [facility] REPOSITORY TYPE CODE TESTS RESULT OUT OF REFERENCE UNITS RANGE LAB WBC 4.23-9.07 K/uL WBC Count 8.34 LAB RBC 4.63-6.08 M/uL RBC Count Low 4.21 LAB HGB 13.7-17.5 g/dL Hemoglobin Low 13.2 LAB HCT 40.1-51.0 % Hematocrit Low 39.8 LAB MCV 79.0-92.2 fL Mean Cell High Volume 94.5 LAB MCH 25.7-32.2 pg Mean Cell Hgb 31.4 LAB MCHC 32.3-36.5 g/dL Mean Cell Hgb Conc 33.2 LAB RDW 11.6-14.4 % RBC High Distribution 17.5 LAB PLT 163-337 K/uL Platelet Count Low 109 LAB MPV 9.4-12.4 fL Mean Platelet Volume NOT MEASURED LAB NRBC 0.0-0.2 /100 WBC NUCLEATED RBC 0.0 Performed By: #### HEMOGC #### [facility] [address] [place] [id number] [place] [address] [place] [address] IONIZED CALCIUM Collected: 05/07/2017 Status: F Source: [facility] 1:55 PM [facility] REPOSITORY TYPE CODE TESTS RESULT OUT OF REFERENCE UNITS RANGE LAB ICA 4.60-5.30 mg/dL Ionized 4.78 Calcium Performed By: #### ICA, FIB, PTPTT, CHM7, IPB, MGO #### [facility] [address] [place] [address] [address] FIBRINOGEN-CLOTTABLE Collected: Status: F Source: [facility] 05/07/2017 1:55 PM [facility] REPOSITORY TYPE CODE TESTS RESULT OUT OF RANGE REFERENCE UNITS LAB FIB 220-410 mg/dL 302 Fibrinogen-C lottable Performed By: #### ICA, FIB, PTPTT, CHM7, IPB, MGO #### [facility] [address] [place] [address] [place] [address] PT*PTT Collected: 05/07/2017 Status: F Source: [facility] 1:55 PM [facility] REPOSITORY TYPE CODE TESTS RESULT OUT OF RANGE REFERENCE UNITS LAB PT 11.9-14.2 sec High PT 15.3 LAB INR 0.9-1.1 High INR 1.2 LAB PTT 24.0-34.3 sec High PTT 35.1 Performed By: #### ICA, FIB, PTPTT, CHM7, IPB, MGO #### [facility] [address] [place] [id number] [place] [address] [address] CHEM 7 Collected: 05/07/2017 Status: F Source: [facility] 1:55 PM [facility] REPOSITORY TYPE CODE TESTS RESULT OUT OF REFERENCE UNITS RANGE LAB BUN 7-22 mg/dL BUN 21 LAB NA 133-143 mmol/L Sodium 136 LAB K 3.5-5.0 mmol/L High Potassium 5.1 LAB CL 98-108 mmol/L Chloride 108 LAB CO2 22-30 mmol/L Low Carbon Dioxide 20 LAB GLUC 70-99 mg/dL Glucose High 125 LAB CREA 0.70-1.30 mg/dL Creatinine 1.06 LAB GAP 7-17 mmol/L Anion Gap 13 LAB BC BUN/CREA Ratio 20 LAB [facility] 278-305 mOsm/kg Osmolality 292 (Calc) LAB GFR >60 mL/min/1.73 sqM Est GFR,non >60 Iraqi LAB GFRA >60 mL/min/1.73 sqM Est GFR, >60 Performed By: #### ICA, FIB, PTPTT, CHM7, IPB, MGO #### [facility] [address] [place] [address] INORGANIC PHOSPHATE Collected: 05/07/2017 Status: F Source: [facility] 1:55 PM [facility] REPOSITORY TYPE CODE TESTS RESULT OUT OF REFERENCE UNITS RANGE LAB IP 2.2-4.6 mg/dL Inorg Phosphate 4.3 Performed By: #### ICA, FIB, PTPTT, CHM7, IPB, MGO #### [facility] [address] [place] [address] MAGNESIUM Collected: 05/07/2017 Status: F Source: [facility] 1:55 PM [facility] REPOSITORY TYPE CODE TESTS RESULT OUT OF REFERENCE UNITS RANGE LAB MG 1.6-2.6 mg/dL Magnesium 2.4 Performed By: #### ICA, FIB, PTPTT, CHM7, IPB, MGO #### [facility] [address] [place] [address] *BLOOD*GAS*PANEL 1 -ROSS Collected: 05/07/2017 Status: F Source: [facility] 1:08 PM [facility] REPOSITORY TYPE CODE TESTS RESULT OUT OF REFERENCE UNITS RANGE LAB PH 7.35-7.45 PH 7.27 Low LAB PCO2 32-48 mm Hg PCO2 57 High LAB PO2 83-108 mm Hg PO2 280 High LAB BGH 40.1-51.0 % BLD GAS 39 Low HCT LAB BGNA 133-143 mmol/L Whole 137 Blood Sodium LAB BGK 3.5-5.0 mmol/L Whole 4.9 Blood Potassium LAB BGICA 4.60-5.30 mg/dL Whole 5.14 Bld Ionized CA LAB BGGLU 70-99 mg/dL WHOLE 141 High BLD GLUC LAB BGLACT 0.5-1.6 mmol/L Lactate, 0.9 Whole Blood LAB BASED 0-3.0 mmol/L Base 0.7 Deficit LAB OSAT 94-98 % O2 100 High Saturation LAB SPECBG Specimen Arterial type LAB COMMTG COMMENT [employer] Server notified LAB BGHGB 13.7-17.5 g/dL BLD GAS 12.8 Low HGB LAB HCO3 22-26 mmol/L 23 Bicarbonate Observed: 05/07/2017 Status: F Source: [facility] TRANSFUSE PLATELETS 1:06 PM [facility] REPOSITORY CROSSMATCH EXPIRATION: 05/08/2017 UNIT NUMBER: [id number] BLOOD COMPONENT TYPE: Platelet Pheresis,Leukoreduced,[id number] STATUS OF UNIT: Issued, Final TRANSFUSION STATUS: OK TO TRANSFUSE Performed By: #### TPLT #### [facility] [place] [address] [place] [address] [place] [address] FIBTEM Collected: 05/07/2017 Status: F Source: [facility] 12:42 PM [facility] REPOSITORY TYPE CODE TESTS RESULT OUT OF REFERENCE UNITS RANGE LAB FMA10 0 FIBTEM 14 A10 LAB FA20 7-21 mm FIBTEM 15 A20 LAB FALPHA 0 FIBTEM 68 ALPHA LAB FMCF 7-21 mm FIBTEM 15 MCF LAB FCT FIBTEM [address] 77 LAB FLI30 FIBTEM 100 LI30 LAB FML FIBTEM ML 0 HEPTEM Collected: 05/07/2017 Status: F Source: [facility] 12:41 PM [facility] REPOSITORY TYPE CODE TESTS RESULT OUT OF REFERENCE UNITS RANGE LAB HA10 HEPTEM 48 A10 LAB HA20 mm HEPTEM 55 A20 LAB HALPHA HEPTEM 73 ALPHA LAB HCFT sec HEPTEM 97 CFT LAB HMCT sec HEPTEM CT 172 LAB HLI30 HEPTEM 100 LI30 LAB HMCF mm HEPTEM 57 MCF LAB HML HEPTEM ML 4 INTEM Collected: 05/07/2017 Status: F Source: [facility] 12:40 PM [facility] REPOSITORY TYPE CODE TESTS RESULT OUT OF REFERENCE UNITS RANGE LAB IA10 48 INTEM A10 LAB IA20 51-72 mm 56 INTEM A20 LAB IALPHA 70-81 72 INTEM ALPHA LAB ICFT 45-110 sec 100 INTEM CFT LAB IMCF 51-72 mm [address] FIRMNESS LAB IMCT 122-208 sec 175 INTEM CFT LAB ILI30 100 INTEM LI30 LAB IML 4 INTEM ML LAB COMROT LAMIN LAMIN comment viscoelastic testing is not FDA approved for the pediatric population (<21 years of age) and the attached reference ranges pertain to adults only. EXTEM Collected: 05/07/2017 Status: F Source: [facility] 12:39 PM [facility] REPOSITORY TYPE CODE TESTS RESULT OUT OF REFERENCE UNITS RANGE LAB EA10 EXTEM A10 49 LAB EA20 50-70 mm EXTEM A20 57 LAB EALPHA 65-80 EXTEM 69 ALPHA LAB ECFT 48-127 sec EXTEM CFT 112 LAB ECT 43-[address] 86 LAB ELI30 EXTEM 100 LI30 LAB EMCF 52-70 mm EXTEM MCF 58 LAB EML EXTEM ML 3 *BLOOD*GAS*PANEL 1 -ROSS Collected: 05/07/2017 Status: F Source: [facility] 12:32 PM [facility] REPOSITORY TYPE CODE TESTS RESULT OUT OF REFERENCE UNITS RANGE LAB PH 7.35-7.45 PH 7.30 Low LAB PCO2 32-48 mm Hg PCO2 52 High LAB PO2 83-108 mm Hg PO2 384 High LAB BGH 40.1-51.0 % BLD GAS 36 Low HCT LAB BGNA 133-143 mmol/L Whole 136 Blood Sodium LAB BGK 3.5-5.0 mmol/L Whole 5.1 High Blood Potassium LAB BGICA 4.60-5.30 mg/dL Whole 4.89 Bld Ionized CA LAB BGGLU 70-99 mg/dL WHOLE 145 High BLD GLUC LAB BGLACT 0.5-1.6 mmol/L Lactate, 1.2 Whole Blood LAB BASED 0-3.0 mmol/L Base 1.4 Deficit LAB OSAT 94-98 % O2 100 High Saturation LAB SPECBG Specimen Arterial type LAB COMMTG COMMENT Civil Process Server notified LAB BGHGB 13.7-17.5 g/dL BLD GAS 11.8 Low HGB LAB HCO3 22-26 mmol/L 23 Bicarbonate *ACTIVATED*CLOT TIME, POC Collected: 05/07/2017 Status: F Source: [facility] 12:31 PM [facility] REPOSITORY TYPE CODE TESTS RESULT OUT OF REFERENCE UNITS RANGE LAB ACTHR 89-169 sec 121 *Activated*C lot Time, poc *BLOOD*GAS*PANEL 1 -ROSS Collected: 05/07/2017 Status: F Source: [facility] 12:22 PM [facility] REPOSITORY TYPE CODE TESTS RESULT OUT OF REFERENCE UNITS RANGE LAB PH 7.35-7.45 PH 7.31 Low LAB PCO2 32-48 mm Hg PCO2 50 High LAB PO2 83-108 mm Hg PO2 439 High LAB BGH 40.1-51.0 % BLD GAS 36 Low HCT LAB BGNA 133-143 mmol/L Whole 135 Blood Sodium LAB BGK 3.5-5.0 mmol/L Whole 5.2 High Blood Potassium LAB BGICA 4.60-5.30 mg/dL Whole 5.07 Bld Ionized CA LAB BGGLU 70-99 mg/dL WHOLE 146 High BLD GLUC LAB BGLACT 0.5-1.6 mmol/L Lactate, 1.3 Whole Blood LAB BASED 0-3.0 mmol/L Base 1.3 Deficit LAB OSAT 94-98 % O2 100 High Saturation LAB SPECBG Specimen Arterial type LAB COMMTG COMMENT Civil Process Server notified LAB BGHGB 13.7-17.5 g/dL BLD GAS 11.9 Low HGB LAB HCO3 22-26 mmol/L 23 Bicarbonate *ACTIVATED*CLOT TIME, POC Collected: 05/07/2017 Status: F Source: [facility] 12:21 PM [facility] REPOSITORY TYPE CODE TESTS RESULT OUT OF REFERENCE UNITS RANGE LAB ACTHR 89-169 sec 132 *Activated*C lot Time, poc *BLOOD*GAS*PANEL 1 -ROSS Collected: 05/07/2017 Status: F Source: [facility] 11:36 AM [facility] REPOSITORY TYPE CODE TESTS RESULT OUT OF REFERENCE UNITS RANGE LAB PH 7.35-7.45 PH 7.35 LAB PCO2 32-48 mm Hg PCO2 45 LAB PO2 83-108 mm Hg PO2 191 High LAB BGH 40.1-51.0 % BLD GAS 35 Low HCT LAB BGNA 133-143 mmol/L Whole 134 Blood Sodium LAB BGK 3.5-5.0 mmol/L Whole 5.6 High Blood Potassium LAB BGICA 4.60-5.30 mg/dL Whole 4.52 Low Bld Ionized CA LAB BGGLU 70-99 mg/dL WHOLE 171 High BLD GLUC LAB BGLACT 0.5-1.6 mmol/L Lactate, 0.6 Whole Blood LAB BASED 0-3.0 mmol/L Base 0.5 Deficit LAB OSAT 94-98 % O2 100 High Saturation LAB SPECBG Specimen Arterial type LAB COMMTG COMMENT Civil Process Server notified LAB BGHGB 13.7-17.5 g/dL BLD GAS 11.5 Low HGB LAB HCO3 22-26 mmol/L 24 Bicarbonate *ACTIVATED*CLOT TIME, POC Collected: 05/07/2017 Status: F Source: [facility] 11:35 AM [facility] REPOSITORY TYPE CODE TESTS RESULT OUT OF REFERENCE UNITS RANGE LAB ACTHR 89-169 sec High 461 *Activated*C lot Time, poc *ACTIVATED*CLOT TIME, POC Collected: 05/07/2017 Status: F Source: [facility] 11:12 AM [facility] REPOSITORY TYPE CODE TESTS RESULT OUT OF REFERENCE UNITS RANGE LAB ACTHR 89-169 sec High 569 *Activated*C lot Time, poc *BLOOD*GAS*PANEL 1 -ROSS Collected: 05/07/2017 Status: F Source: [facility] 10:55 AM [facility] REPOSITORY TYPE CODE TESTS RESULT OUT OF REFERENCE UNITS RANGE LAB PH 7.35-7.45 PH 7.34 Low LAB PCO2 32-48 mm Hg PCO2 47 LAB PO2 83-108 mm Hg PO2 439 High LAB BGH 40.1-51.0 % BLD GAS 35 Low HCT LAB BGNA 133-143 mmol/L Whole 135 Blood Sodium LAB BGK 3.5-5.0 mmol/L Whole 5.5 High Blood Potassium LAB BGICA 4.60-5.30 mg/dL Whole 4.54 Low Bld Ionized CA LAB BGGLU 70-99 mg/dL WHOLE 172 High BLD GLUC LAB BGLACT 0.5-1.6 mmol/L Lactate, 0.6 Whole Blood LAB BASED 0-3.0 mmol/L Base 0.4 Deficit LAB OSAT 94-98 % O2 100 High Saturation LAB SPECBG Specimen Arterial type LAB COMMTG COMMENT Civil Process Server notified LAB BGHGB 13.7-17.5 g/dL BLD GAS 11.4 Low HGB LAB HCO3 22-26 mmol/L 24 Bicarbonate *ACTIVATED*CLOT TIME, POC Collected: 05/07/2017 Status: F Source: [facility] 10:53 AM [facility] REPOSITORY TYPE CODE TESTS RESULT OUT OF REFERENCE UNITS RANGE LAB ACTHR 89-169 sec High 457 *Activated*C lot Time, poc *BLOOD*GAS*PANEL 1 -ROSS Collected: 05/07/2017 Status: F Source: [facility] 10:45 AM [facility] REPOSITORY TYPE CODE TESTS RESULT OUT OF REFERENCE UNITS RANGE LAB PH 7.35-7.45 PH 7.33 Low LAB PCO2 32-48 mm Hg PCO2 50 High LAB PO2 83-108 mm Hg PO2 455 High LAB BGH 40.1-51.0 % BLD GAS 35 Low HCT LAB BGNA 133-143 mmol/L Whole 134 Blood Sodium LAB BGK 3.5-5.0 mmol/L Whole 5.8 High Blood Potassium LAB BGICA 4.60-5.30 mg/dL Whole 4.56 Low Bld Ionized CA LAB BGGLU 70-99 mg/dL WHOLE 178 High BLD GLUC LAB BGLACT 0.5-1.6 mmol/L Lactate, 0.6 Whole Blood LAB BASES mmol/L BASE 0.1 EXCESS LAB OSAT 94-98 % O2 100 High Saturation LAB SPECBG Specimen Arterial type LAB COMMTG COMMENT Civil Process Server notified LAB BGHGB 13.7-17.5 g/dL BLD GAS 11.4 Low HGB LAB HCO3 22-26 mmol/L 24 Bicarbonate *ACTIVATED*CLOT TIME, POC Collected: 05/07/2017 Status: F Source: [facility] 10:44 AM [facility] REPOSITORY TYPE CODE TESTS RESULT OUT OF REFERENCE UNITS RANGE LAB ACTHR 89-169 sec High 395 *Activated*C lot Time, poc *BLOOD*GAS*PANEL 1 -ROSS Collected: 05/07/2017 Status: F Source: [facility] 10:35 AM [facility] REPOSITORY TYPE CODE TESTS RESULT OUT OF REFERENCE UNITS RANGE LAB PH 7.35-7.45 PH 7.32 Low LAB PCO2 32-48 mm Hg PCO2 52 High LAB PO2 83-108 mm Hg PO2 174 High LAB BGH 40.1-51.0 % BLD GAS 35 Low HCT LAB BGNA 133-143 mmol/L Whole 135 Blood Sodium LAB BGK 3.5-5.0 mmol/L Whole 5.4 High Blood Potassium LAB BGICA 4.60-5.30 mg/dL Whole 4.60 Bld Ionized CA LAB BGGLU 70-99 mg/dL WHOLE 163 High BLD GLUC LAB BGLACT 0.5-1.6 mmol/L Lactate, 0.6 Whole Blood LAB BASES mmol/L BASE 0.6 EXCESS LAB OSAT 94-98 % O2 100 High Saturation LAB SPECBG Specimen Arterial type LAB COMMTG COMMENT Civil Process Server notified LAB BGHGB 13.7-17.5 g/dL BLD GAS 11.5 Low HGB LAB HCO3 22-26 mmol/L 24 Bicarbonate *ACTIVATED*CLOT TIME, POC Collected: 05/07/2017 Status: F Source: [facility] 10:34 AM [facility] REPOSITORY TYPE CODE TESTS RESULT OUT OF REFERENCE UNITS RANGE LAB ACTHR 89-169 sec High 390 *Activated*C lot Time, poc *ACTIVATED*CLOT TIME, POC Collected: 05/07/2017 Status: F Source: [facility] 10:19 AM [facility] REPOSITORY TYPE CODE TESTS RESULT OUT OF REFERENCE UNITS RANGE LAB ACTHR 89-169 sec High 396 *Activated*C lot Time, poc *BLOOD*GAS*PANEL 1 -ROSS Collected: 05/07/2017 Status: F Source: [facility] 10:04 AM [facility] REPOSITORY TYPE CODE TESTS RESULT OUT OF REFERENCE UNITS RANGE LAB PH 7.35-7.45 PH 7.36 LAB PCO2 32-48 mm Hg PCO2 47 LAB PO2 83-108 mm Hg PO2 315 High LAB BGH 40.1-51.0 % BLD GAS 38 Low HCT LAB BGNA 133-143 mmol/L Whole 136 Blood Sodium LAB BGK 3.5-5.0 mmol/L Whole 4.2 Blood Potassium LAB BGICA 4.60-5.30 mg/dL Whole 4.51 Low Bld Ionized CA LAB BGGLU 70-99 mg/dL WHOLE 124 High BLD GLUC LAB BASES mmol/L BASE 0.9 EXCESS LAB OSAT 94-98 % O2 100 High Saturation LAB SPECBG Specimen Arterial type LAB COMMTG COMMENT Civil Process Server notified LAB BGHGB 13.7-17.5 g/dL BLD GAS 12.5 Low HGB LAB HCO3 22-26 mmol/L 25 Bicarbonate *ACTIVATED*CLOT TIME, POC Collected: 05/07/2017 Status: F Source: [facility] 10:03 AM [facility] REPOSITORY TYPE CODE TESTS RESULT OUT OF REFERENCE UNITS RANGE LAB ACTHR 89-169 sec High 394 *Activated*C lot Time, poc *BLOOD*GAS*PANEL 1 -RITA Collected: 05/07/2017 Status: F Source: [facility] 9:44 AM [facility] REPOSITORY TYPE CODE TESTS RESULT OUT OF REFERENCE UNITS RANGE LAB PH 7.35-7.45 PH 7.36 LAB PCO2 32-48 mm Hg PCO2 46 LAB PO2 83-108 mm Hg PO2 145 High LAB BGH 40.1-51.0 % BLD GAS 43 HCT LAB BGNA 133-143 mmol/L Whole 138 Blood Sodium LAB BGK 3.5-5.0 mmol/L Whole 4.4 Blood Potassium LAB BGICA 4.60-5.30 mg/dL Whole 4.83 Bld Ionized CA LAB BGGLU 70-99 mg/dL WHOLE 116 High BLD GLUC LAB BASES mmol/L BASE 0.5 EXCESS LAB OSAT 94-98 % O2 99 High Saturation LAB SPECBG Specimen Arterial type LAB COMMTG COMMENT Civil Process Server notified LAB BGHGB 13.7-17.5 g/dL BLD GAS 14.0 HGB LAB HCO3 22-26 mmol/L 24 Bicarbonate *ACTIVATED*CLOT TIME, POC Collected: 05/07/2017 Status: F Source: [facility] 9:43 AM [facility] REPOSITORY TYPE CODE TESTS RESULT OUT OF REFERENCE UNITS RANGE LAB ACTHR 89-169 sec High 427 *Activated*C lot Time, poc *BLOOD*GAS*PANEL 1 -ROSS Collected: 05/07/2017 Status: F Source: [facility] 9:00 AM [facility] REPOSITORY TYPE CODE TESTS RESULT OUT OF REFERENCE UNITS RANGE LAB PH 7.35-7.45 PH 7.33 Low LAB PCO2 32-48 mm Hg PCO2 51 High LAB PO2 83-108 mm Hg PO2 175 High LAB BGH 40.1-51.0 % BLD GAS 43 HCT LAB BGNA 133-143 mmol/L Whole 139 Blood Sodium LAB BGK 3.5-5.0 mmol/L Whole 4.2 Blood Potassium LAB BGICA 4.60-5.30 mg/dL Whole 4.95 Bld Ionized CA LAB BGGLU 70-99 mg/dL WHOLE 104 High BLD GLUC LAB BASES mmol/L BASE 0.8 EXCESS LAB OSAT 94-98 % O2 100 High Saturation LAB SPECBG Specimen Arterial type LAB COMMTG COMMENT Civil Process Server notified LAB BGHGB 13.7-17.5 g/dL BLD GAS 14.1 HGB LAB HCO3 22-26 mmol/L 24 Bicarbonate *ACTIVATED*CLOT TIME, POC Collected: 05/07/2017 Status: F Source: [facility] 8:58 AM [facility] REPOSITORY TYPE CODE TESTS RESULT OUT OF REFERENCE UNITS RANGE LAB ACTHR 89-169 sec 103 *Activated*C lot Time, poc SURGICAL PATHOLOGY Observed: 05/07/2017 Status: F Source: [facility] 7:30 AM [facility] REPOSITORY Surgical Pathology Report Patient Name: FRANK RIVERA Med. Rec #: [id number] Submitting Physician: JULIETH LAND --- Clinical History --- Preoperative Diagnosis: Aortic stenosis with mitral and aortic insufficiency. Encounter for consultation. History of bleeding ulcers. Medical History: Atherosclerosis of coronary artery. Cigar smoker. Aortic stenosis with mitral and aortic insufficiency. Premature ventricular contractions. Carotid root. Anemia. AV block. Hyperlipidemia. I08.0 Z71.9 Z87.11. ---Final Pathologic Diagnosis--- A. Aortic valve leaflets, aortic valve replacement: - Valve tissue with nodular calcifications. [email or web address]:05/12/2017 Electronically Signed By Lamonte Abbott MD 05/12/2017 14:01:09 Professional Interpretation performed at location: [address] [place] [id number] ---SPECIMEN(S) RECEIVED:--- SR A: Heart valve, excision ---GROSS DESCRIPTION:--- The specimen is received in one properly labeled container with the patient's name and accession number. A. The specimen is designated aortic valve leaflet and consists of a 4.7 x 3.5 x 1.6 cm aggregate of multiple irregular fragments of markedly thickened and calcified valvular tissue. RS 2 Summary of Cassettes: A1-A2, client representative sections of each respective leaflet to include areas of thickening and calcifications Note: Cassettes A1-A2 will be ready following decalcification. Lab Use Only: JobID [id number] Gross description by: Christo Iyer Performed By: #### SURGP #### [facility] [address] [place] [address] *POC GLUCOSE BATTERY Collected: 05/07/2017 Status: F Source: [facility] 6:37 AM [facility] REPOSITORY TYPE CODE TESTS RESULT OUT OF REFERENCE UNITS RANGE LAB GLUP 70-99 mg/dL Glucose (poc 94 device) Result Comment: No BRAVE per RN: PATIENT TYPE LAB PCSTYP *POC SAMPLE TYPE Venous Observed: 04/20/2017 Status: F Source: [facility] TYPE AND CROSS - 2:00 PM [facility] PRE-OP [facility] REPOSITORY ABO/RH(D): A POSITIVE ANTIBODY SCREEN: NEGATIVE UNIT NUMBER: [id number] BLOOD COMPONENT TYPE: Red Cells, [id number] STATUS OF UNIT: REL FROM ALLOC TRANSFUSION STATUS: OK TO TRANSFUSE CROSSMATCH RESULT: Electronically Compatible UNIT NUMBER: [id number] BLOOD COMPONENT TYPE: Red Cells, [id number] STATUS OF UNIT: REL FROM ALLOC TRANSFUSION STATUS: OK TO TRANSFUSE CROSSMATCH RESULT: Electronically Compatible UNIT NUMBER: [id number] BLOOD COMPONENT TYPE: Red Cells, [id number] STATUS OF UNIT: REL FROM ALLOC TRANSFUSION STATUS: OK TO TRANSFUSE CROSSMATCH RESULT: Electronically Compatible Performed By: #### XMPO #### [facility] [place] [address] [place] [address] Observed: 04/20/2017 Status: F Source: [facility] URINE CULTURE -UHE 1:38 PM [facility] REPOSITORY SOURCE: URINE-CLEAN CATCH: RESULT: NO SIGNIFICANT GROWTH. Routine cultures are evaluated for significant uropathogens >10,000 CFU/mL. REPORT STATUS: 04/22/2017 FINAL Performed By: #### UR #### [place] [address] Blood Cultures processed at: [facility] CBC WITH DIFF Collected: 04/20/2017 Status: F Source: [facility] 1:37 PM [facility] REPOSITORY TYPE CODE TESTS RESULT OUT OF REFERENCE UNITS RANGE LAB WBC 4.23-9.07 K/uL WBC Count 6.42 LAB RBC 4.63-6.08 M/uL RBC Count 4.78 LAB HGB 13.7-17.5 g/dL Hemoglobin 14.6 LAB HCT 40.1-51.0 % Hematocrit 44.4 LAB MCV 79.0-92.2 fL Mean Cell 92.9 High Volume LAB MCH 25.7-32.2 pg Mean Cell 30.5 Hgb LAB MCHC 32.3-36.5 g/dL Mean Cell 32.9 Hgb Conc LAB RDW 11.6-14.4 % RBC 17.7 High Distribution LAB PLT 163-337 K/uL Platelet 197 Count LAB MPV 9.4-12.4 fL Mean 9.3 Low Platelet Volume LAB NRBC 0.0-0.2 /100 WBC NUCLEATED 0.0 RBC LAB DTYPE Electronic DIFFERENTIAL TYPE Differential LAB IGRE % IMMATURE 0.3 GRANS % LAB SEGS % NEUTROPHIL 59.8 SEGMENTED LAB LYM % LYMPHOCYTE 32.2 % LAB MON % MONOCYTE % 7.0 LAB EOS % EOSINOPHIL 0.2 % LAB BASO % BASOPHIL % 0.5 LAB IGABS 0.00-0.03 K/uL IMMATURE 0.02 GRANS ABSOLUTE LAB SBANS 1.78-5.38 K/uL SEGS + 3.84 Bands,Absolute LAB ALYM 1.32-3.57 K/uL Abs Lymph 2.07 LAB AMONO 0.30-0.82 K/uL Abs Pope 0.45 LAB AEOS 0.04-0.54 K/uL Abs Eos 0.01 Low LAB ABASO 0.01-0.08 K/uL Abs Baso 0.03 Performed By: #### BEKAHM, TWANM7C, [facility], [facility] #### [facility] [address] [place] [address] #### PTPTTC, FT4, FT3, TSH, A1CB #### [facility] [address] [place] [address] #### XLIPOB #### Reference lab information reported with result PT/PTT - SYDNEE Collected: 04/20/2017 Status: F Source: [facility] 1:37 PM [facility] REPOSITORY TYPE CODE TESTS RESULT OUT OF RANGE REFERENCE UNITS LAB PT 11.9-14.2 sec PT 13.2 LAB INR 0.9-1.1 INR 1.0 LAB PTT 24.0-34.3 sec High PTT 38.0 Performed By: #### FABIANA, TWANMCiprianoC, [facility], [facility] #### [facility] [address] [place] [address] #### PTPTTC, FT4, FT3, TSH, A1CB #### [facility] [address] [place] [address] #### XLIPOB #### Reference lab information reported with result CHEM [address] - [address] Collected: 04/20/2017 Status: F Source: [facility] LAB 1:37 PM [facility] REPOSITORY TYPE CODE TESTS RESULT OUT OF REFERENCE UNITS RANGE LAB NA 133-143 mmol/L Sodium 134 LAB K 3.5-5.0 mmol/L Potassium 4.5 LAB CL 98-108 mmol/L Chloride 105 LAB CO2 22-30 mmol/L Carbon Dioxide 28 LAB BUN 7-22 mg/dL BUN 14 LAB CREA 0.70-1.30 mg/dL Creatinine 0.86 LAB GLUC 70-99 mg/dL Glucose 84 LAB GAP 7-17 mmol/L Low Anion Gap 6 LAB GFR >60 mL/min/1.73 sqM Est GFR,non >60 Iraqi LAB GFRA >60 mL/min/1.73 sqM Est GFR, >60 LAB OSMC 278-305 mOsm/kg Osmolality 282 (Calc) Performed By: #### CBCDFM, CHM7C, HFPC, MGCC #### [facility] [address] [place] [address] #### PTPTTC, FT4, FT3, TSH, A1CB #### [place] [address] [place] [address] #### XLIPOB #### Reference lab information reported with result HEPATIC FUNCTION Collected: 04/20/2017 Status: F Source: [facility] [address] 1:37 PM [facility] REPOSITORY TYPE CODE TESTS RESULT OUT OF REFERENCE UNITS RANGE LAB ALB 3.5-5.0 g/dL Albumin 3.6 LAB BILD <0.3 mg/dL Bilirubin Direct 0.2 LAB BILT <1.5 mg/dL Bilirubin Total 0.5 LAB ALP 32-126 U/L Alkaline High Phosphatase 165 LAB ALT 10-52 U/L ALT 18 LAB AST 14-40 U/L AST 28 LAB TP 6.4-8.3 g/dL Total Protein 8.3 Performed By: #### CBCDFM, CHM7C, HFPC, MGCC #### [facility] [address] [place] [address] #### PTPTTC, FT4, FT3, TSH, A1CB #### [place] [address] #### XLIPOB #### Reference lab information reported with result MAGNESIUM - [address] Collected: 04/20/2017 Status: F Source: [facility] LAB 1:37 PM [facility] REPOSITORY TYPE CODE TESTS RESULT OUT OF REFERENCE UNITS RANGE LAB MG 1.6-2.6 mg/dL Magnesium 1.9 Performed By: #### CBCDFM, CHM7C, HFPC, MGCC #### [facility] [address] [place], [place] [address] #### PTPTTC, FT4, FT3, TSH, A1CB #### [facility] [address] [place] [address] [place] [address] #### XLIPOB #### Reference lab information reported with result FREE T4 Collected: 04/20/2017 Status: F Source: [facility] 1:37 PM [facility] REPOSITORY TYPE CODE TESTS RESULT OUT OF RANGE REFERENCE UNITS LAB FT4 0.89-1.76 ng/dL Free T4 1.21 Performed By: #### OSIELDFM, CHM7C, HFPC, MGCC #### [facility] [address] [place] [address] #### PTPTTC, FT4, FT3, TSH, A1CB #### [facility] [address] [place] [address] #### XLIPOB #### Reference lab information reported with result FREE T3 Collected: 04/20/2017 Status: F Source: [facility] 1:37 PM [facility] REPOSITORY TYPE CODE TESTS RESULT OUT OF RANGE REFERENCE UNITS LAB FT3 2.3-4.2 pg/mL Low Free T3 2.1 Performed By: #### CBCDFM, CHM7C, HFPC, MGCC #### [facility] [address] [place] [address] #### PTPTTC, FT4, FT3, TSH, A1CB #### [facility] [address] [address] [facility] [address] [place] [address] #### XLIPOB #### Reference lab information reported with result TSH, HIGH SENSITIVITY Collected: 04/20/2017 Status: F Source: [facility] 1:37 PM [facility] REPOSITORY TYPE CODE TESTS RESULT OUT OF REFERENCE UNITS RANGE LAB TSH 0.550-4.780 uIU/mL TSH, High Sensitivity 3.366 Performed By: #### CBCDFM, CHM7C, HFPC, MGCC #### [facility] [address] [place] [address] #### PTPTTC, FT4, FT3, TSH, A1CB #### [facility] [address] [place] [address] [place] [address] #### XLIPOB #### Reference lab information reported with result HEMOGLOBIN A1C Collected: 04/20/2017 Status: F Source: [facility] 1:37 PM [facility] REPOSITORY TYPE CODE TESTS RESULT OUT OF REFERENCE UNITS RANGE LAB A1C 4.7-5.6 % Hemoglobin A1C 5.3 LAB EAG mg/dL Estimated 105 Average Glucose Performed By: #### CBCDFM, CHM7C, HFPC, MGCC #### [facility] [address] [place] [address] #### PTPTTC, FT4, FT3, TSH, A1CB #### [facility] [address] [place] [address] [place] [address] #### XLIPOB #### Reference lab information reported with result NMR LIPOPROFILE Collected: 04/20/2017 Status: F Source: [facility] 1:37 PM [facility] REPOSITORY TYPE CODE TESTS RESULT OUT OF REFERENCE UNITS RANGE LAB NMTHDL >=30.5 umol/L Low HDL-P (TOTAL) 18.4 LAB NMSLDL <=527 nmol/L Small LDL-P 381 LAB XLDLSZ >=20.8 nm LDL Particle 20.1 Size LAB NMVLDL <=2.7 nmol/L High Large VLDL-P 5.5 LAB NMS2LD <=527 nmol/L Small LDL-P 381 LAB NMLHDL >=4.8 umol/L Low Large HDL-P 4.2 LAB NMVLDS <=46.6 nm High VLDL Size 48.0 LAB NMLSZ >20.5 nm LDL Size 20.1 Result Comment: (NOTE) INTERPRETATIVE INFORMATION PARTICLE CONCENTRATION AND SIZE <--Lower CVD Risk Higher CVD Risk--> LDL AND HDL PARTICLES Percentile in Reference Population HDL-P (total) High 75th 50th 25th Low >34.9 34.9 30.5 26.7 <26.7 . Small LDL-P Low 25th 50th 75th High <117 117 527 839 >839 . LDL Size <-Large (Pattern A)-> <-Small (Pattern B)-> 23.0 20.6 20.5 19.0 . Small LDL-P and LDL Size are associated with CVD risk, but not after LDL-P is taken into account. . These assays were developed and their performance characteristics determined by [employer]. These assays have not been cleared by the [place] Food and Drug Administration. The clinical utility of these laboratory values have not been fully established. LAB NMHSZ >=9.2 nm HDL Size 9.3 LAB NMLPIR <=45 High LP-IR SCORE 55 Result Comment: (NOTE) INSULIN RESISTANCE / DIABETES RISK MARKERS <--Insulin Sensitive Insulin Resistant--> Percentile in Reference Population Large VLDL-P Low 25th 50th 75th High <0.9 0.9 2.7 6.9 >6.9 . Small LDL-P Low 25th 50th 75th High <117 117 527 839 >839 . Large HDL-P High 75th 50th 25th Low >7.3 7.3 4.8 3.1 <3.1 . VLDL Size Small 25th 50th 75th Large <42.4 42.4 46.6 52.5 >52.5 . LDL Size Large 75th 50th 25th Small >21.2 21.2 20.8 20.4 <20.4 . HDL Size Large 75th 50th 25th Small >9.6 9.6 9.2 8.9 <8.9 Insulin Resistance Score LP-IR SCORE Low 25th 50th 75th High <27 27 45 63 >63 . LP-IR Score is inaccurate if patient is non-fasting. . The LP-IR score is a laboratory developed index that has been associated with insulin resistance and diabetes risk and should be used as one component of a physician's clinical assessment. Neither the LP-IR score nor the subclasses listed above have been cleared by the [place] Food and Drug Administration. Test Performed by: [facility] [address] [place] [address] LAB NMTLDL <1000 nmol/L LDL-P (LDL Particle 673 Number) Result Comment: (NOTE) Low < 1000 Moderate 1000 - 1299 Borderline-High 1300 - 1599 High 1600 - 2000 Very High > 2000 LAB XLDLC 0-99 mg/dL LDL-C (calculated) 47 Result Comment: (NOTE) . Optimal < 100 Above optimal 100 - 129 Borderline 130 - 159 High 160 - 189 Very high > 189 . . LDL-C is inaccurate if patient is non-fasting. LAB XHDL >39 mg/dL Low HDL-C 25 LAB XTRIG 0-149 mg/dL Triglycerides High 180 LAB XCHOLT 100-199 mg/dL Total Cholesterol 108 Performed By: #### CBCDFM, CHM7C, HFPC, MGCC #### [facility] [address] [place] [address] #### PTPTTC, FT4, FT3, TSH, A1CB #### [facility] [address] [place] [address] [facility] [address] [place], [place] [address] #### XLIPOB #### Reference lab information reported with result URINALYSIS - [place] Collected: 04/20/2017 Status: F [facility]37 PM [facility] REPOSITORY TYPE CODE TESTS RESULT OUT OF RANGE REFERENCE UNITS LAB PROFESSIONAL [employer]TS SCOUT Clear Appearance Abnormal Urine Cloudy LAB SPGR 1.001-1.035 Specific [place] urine 1.025 LAB UGL Negative mg/dL Glucose Urine Negative LAB UKET Negative Ketones Urine Negative LAB UBLD Negative Blood Urine Abnormal Moderate LAB UPH 5.0-7.0 pH Urine 5.5 LAB UPR Negative mg/dL Protein Abnormal Urine 100 LAB UNTR Negative Nitrites Urine Negative LAB ULEU Negative Leukocyte Esterase Negative LAB COLR YEL,DKYEL Color Yellow LAB UURO <2.0 EU/dL Urobilinogen 1.0 urine LAB UWBC 0-5 /HPF WBC Urine 0-5 LAB URBC 0-2 /HPF RBC Urine 0-2 LAB BACT Absent Bacteria Abnormal Present LAB EPIS /HPF Squamous Epithelial 1+ LAB UCOM COMMENT URINE Yeast Performed By: #### URNC #### [facility] [facility] [address] [place] [address] Observed: 04/20/2017 Status: F Source: [facility] SCREEN: RESP STAPH 1:37 PM [facility] (HIGH RISK SURGERY) [facility] REPOSITORY NARES: Negative Negative This test was performed using a real time PCR assay. Results should be interpreted in conjunction with other clinical and laboratory findings. A positive result does not necessarily indicate the pr esence of viable organism. This test should not be used as a test of cure. For E-swab specimens, this test was developed and its performance characteristics determined by the Clinical Microbiology Laboratory at [facility]. It has not b een cleared or approved by the FDA.The laboratory is regulated under CLIA as qualified to perform high-complexity testing. This test is used for clinical purposes. It should not be regarded as investigational or for research. Performed By: #### SCRSB #### [place] [address] ALLERGIES ALLERGIES DATE TYPE / CODE NAME / CODE REACTION SEVERITY SOURCE 03/15/2018 Drug Penicillins/F0010 Hives Unknown [place] Allergy/416 02543(RXNORM) Community 363365([facility] ED CT) Repository 12/24/2017 DRUG PENICILLIN HIVES [facility] INGREDI/419 Other [place] 388083([facility] ED CT) ENCOUNTERS ENCOUNTERS ADMIT/DISCHARGE ACCOUNT NUMBER ADMITTING ENCOUNTER LOCATION SOURCE CLASS 04/19/2018 [id number] Ambulatory [facility] ding:CR Repository 04/15/2018 [id number] Ambulatory [facility] ding:LAB.FUT Repository URE 04/14/2018 [id number] Ambulatory [facility] ding:LAB.FUT Repository URE 04/01/2018 [id number] Ambulatory [facility] ding:CR Repository 03/30/2018/03/30/19 [id number] Ambulatory BMSBuilding: [place] 19 [facility] Repository 03/23/2018 [id number] Ambulatory [facility] ding:HHLAB Repository 03/15/2018/03/15/20 [id number] Ambulatory BMSBuilding: [place] 18 [facility] Repository 03/11/2018/03/11/[id number] Repository 03/10/2018 [id number] Ambulatory BMSBuilding: [place] BMS.[facility] Repository 03/05/2018/03/05/20 [id number] Ambulatory [address] Repository 03/05/2018/03/05/20 [id number] Ambulatory [address] Repository 03/05/2018/03/05/20 [id number] Ambulatory [address] Repository 03/05/2018/03/05/20 [id number] Ambulatory [address] Repository 03/05/2018/03/05/20 [id number] Ambulatory [address] Repository 03/05/2018/03/07/20 [id number] Ambulatory [address] Repository 03/03/2018 [id number] Ambulatory BMSBuilding: [place] BMS.[facility] Repository 03/01/2018/03/03/20 [id number] Ambulatory [address] ding:HHLAB Repository 02/15/2018/02/20/20 [id number] Ambulatory [address] ding:HHLAB Repository 02/08/2018 [id number] Ambulatory [facility] ding:MTRAD Repository 02/04/2018/02/05/20 [id number] Ambulatory [address] Main [place] Repository 01/25/2018/01/27/20 [id number] Ambulatory [address] Main [place] Repository 01/13/2018/01/14/20 [id number] Inpatient [place] 18 Encounter [facility] Main [place] Repository 01/13/2018/01/15/20 [id number] Ambulatory [address] [place] Repository 01/12/2018/01/14/20 [id number] Ambulatory [address] [place] Repository 01/08/2018/01/13/20 [id number] Ambulatory [address] [place] Repository 01/06/2018 [id number] Ambulatory [facility] ding:OMD Repository 01/01/2018/01/02/20 [id number] Ambulatory [address] [place] Repository 12/25/2017/12/26/19 [id number] Ambulatory [address] [place] Repository 12/24/2017/02/05/20 [id number] EUGENIO, Inpatient [address] Repository 12/18/2017 [id number] Ambulatory [facility] ding:CT Repository 12/15/2017/12/25/19 [id number] Razia, Inpatient [address] ding:LW9Fyzb Repository : JU359Luz: 1 12/15/2017 [id number] Razia, Ambulatory BMSBuilding: [place] BMS.[facility] Repository 12/15/2017 [id number] Razia, Ambulatory BMSBuilding: [place] BMS.[facility] Repository 12/15/2017 [id number] Razia, Ambulatory BMSBuilding: [place] BMS.[facility] Repository 12/15/2017 [id number] Razia, Ambulatory BMSBuilding: [place] BMS.[facility] Repository 12/15/2017 [id number] Randle, Ambulatory BMSBuilding: [place] BMS.[facility] Repository 12/15/2017 [id number] Randle, Ambulatory BMSBuilding: [place] BMS.[facility] Repository 12/15/2017 [id number] Randle, Ambulatory BMSBuilding: [place] BMS.[facility] Repository 12/15/2017 [id number] Randle, Ambulatory BMSBuilding: [place] BMS.[facility] Repository 12/15/2017 [id number] Randle, Ambulatory BMSBuilding: [place] BMS.[facility] Repository 12/15/2017 [id number] Randle, Ambulatory BMSBuilding: [place] BMS.[facility] Repository 12/15/2017 [id number] Randle, Ambulatory BMSBuilding: [place] BMS.[facility] Repository 12/12/2017 [id number] Ambulatory [facility] ding:LAB Repository 11/16/2017/11/17/19 [id number] Ambulatory BMSBuilding: [place] 18 [facility] Repository 11/16/2017/11/17/19 [id number] Ambulatory BMSBuilding: [place] 18 [facility] Repository 11/04/2017 [id number] Ambulatory [facility] ding:LAB Repository 10/27/2017/10/30/19 [id number] ALEXANDRU, Inpatient AMCBuilding: [address] Encounter EK1Lzwy: Hospitals PE066Bdo: Repository CV202O 10/27/2017/10/28/19 [id number] Emergency [address] ding:ED Repository 10/26/2017 [id number] Ambulatory BMSBuilding: [place] [facility] Repository 10/26/2017/10/27/19 [id number] Emergency [address] ding:ED Repository 10/26/2017/10/27/19 [id number] Ambulatory BMSBuilding: [place] 18 BMS.[facility] Repository 10/26/2017 [id number] Ambulatory [facility] ding:LAB.FUT Repository URE 09/14/2017/09/15/19 [id number] Ambulatory BMSBuilding: [place] 18 BMS.[facility] Repository 07/15/2017 [id number] Ambulatory BMSBuilding: [place] [facility] Repository 07/03/2017/07/04/19 [id number] Ambulatory [place] 18 [facility] Hospital ding:CR Repository 07/01/2017/07/02/19 [id number] Ambulatory BMSBuilding: [place] 18 [facility] Repository 07/01/2017 [id number] Ambulatory BMSBuilding: [place] [facility] Repository 06/22/2017 [id number] Ambulatory [facility] ding:LAB Repository 06/19/2017/06/21/19 [id number] Ambulatory [place] ding:CR Repository 06/09/2017 [id number] Ambulatory Building:[facility] Repository 06/09/2017/06/10/19 [id number] HOUMSSE, Ambulatory Building:[address] RSSRoom: [facility] Repository 06/09/2017 [id number] Ambulatory Building:[facility] Repository 06/09/2017 [id number] Ambulatory Building:[facility] Repository 06/09/2017 [id number] Ambulatory Building:[facility] Repository 06/08/2017/06/09/19 [id number] Ambulatory [place] 18 [facility] ding:LAB Repository 06/08/2017 [id number] Ambulatory [facility] ding:CR Repository 06/05/2017 [id number] Ambulatory Building:[facility] Repository 06/04/2017 [id number] Ambulatory Building:[facility] Repository 06/01/2017/06/02/19 [id number] Ambulatory BMSBuilding: [place] 18 [facility] Repository 06/01/2017 [id number] Ambulatory BMSBuilding: [place] BMS[facility] Repository 05/30/2017 [id number] Ambulatory Building:[facility] Repository 05/25/2017 [id number] Ambulatory [facility] ding:LAB Repository 05/25/2017 [id number] Ambulatory Building:[facility] Repository 05/20/2017 [id number] Ambulatory Building:[facility] Repository 05/18/2017 [id number] Ambulatory [facility] ding:LAB.FUT Repository URE 05/18/2017 [id number] Ambulatory BMSBuilding: [place] BMS.[facility] Repository 05/18/2017 [id number] Ambulatory Building:[facility] Repository 05/17/2017 [id number] Ambulatory Building:[facility] Repository 05/07/2017/05/15/19 [id number] RUSHING, Inpatient Building:R [address] Encounter oom: [place] 4026Bed: A [facility] Repository 04/20/2017 [id number] [facility] 04/20/2017 [id number] Ambulatory Building:[facility] Repository PAYERS PAYERS ENCOUNTER GUARANTOR PAYER SUBSCRIBER SOURCE 04/19/2018 FRANK T Primary FRANK T [place] [id number] N Insurance:MEDICAL EDINGTONDOB: [facility] 1771[place] Number: Repository [address]Aek: (079) [id number] [phone] () Date:4431-61-27QK [address] [place] [address]WM: 04/19/2018 Secondary NOT GIVENUNK [place] Insurance:SELF PAY [facility] Number: Effective Repository Date:2018-04-01 04/15/2018 FRANK T Primary FRANK T [place] [id number] N Insurance:[facility]: [facility] 6003-11-[place] Number: Repository [address]Yjm: 330 [id number] [phone] (HP) Date:8754-64-29AP [address] [address]PN: 04/15/2018 Secondary NOT GIVENUNK [place] Insurance:SELF PAY [facility] Hospital Number: Effective Repository Date:2018-04-15 04/14/2018 FRANK T Primary FRANK T [place] [id number] N Insurance:MEDICAL EDINGTONDOB: [facility] 1562-28-40[place] Number: Repository [address]Hoj: 330 [id number] [phone] (HP) Date:4568-75-13MU [address] [place] [address]GJ: 04/14/2018 Secondary NOT GIVENUNK [place] Insurance:SELF PAY [facility] Number: Effective Repository Date:2018-04-13 04/01/2018 FRANK T Primary FRANK T [place] [id number] N Insurance:MEDICAL EDINGTONDOB: [facility] 3613-33-62[place] Number: Repository [address]Jvr: 330 [id number] [phone] (HP) Date:0635-03-30VC [address] [address]JG: 04/01/2018 Secondary NOT GIVENUNK [place] Insurance:SELF PAY [facility] Hospital Number: Effective Repository Date:2018-03-18 03/30/2018 FRANK T Primary FRANK T [place] [id number] N Insurance:MEDICAL EDINGTONDOB: [facility] 2618-69-71[place] Number: Repository [address]Cdm: 330 [id number] [phone] (HP) Date:6602-44-82HY [address] [place] [address]EJ: 03/30/2018 Secondary NOT GIVENUNK [place] Insurance:SELF PAY [facility] Number: Effective Repository Date:2018-03-30 03/23/2018 FRANK T Primary FRANK Jaimes [place] [id number] N Insurance:MEDICAL EDINGTONDOB: [facility] 2686-60-93XEWL[place], [place] Number: Repository [address]Mwv: 330 [id number] [phone] (HP) Date:7562-40-87NO [address] [address]CE: 03/23/2018 Secondary NOT GIVENUNK [place] Insurance:SELF PAY [facility] Number: Effective Repository Date:2018-03-22 03/15/2018 FRANK T Primary FRANK Jaimes [place] [id number] N Insurance:MEDICAL EDINGTONDOB: [facility] 8673-00-05[place] Number: Repository [address]Kwb: 330 [id number] [phone] () Date:0043-80-96QY [address] [address]VI: 03/15/2018 Secondary NOT GIVENUNK [place] Insurance:SELF PAY [facility] Number: Effective Repository Date:2018-03-15 03/10/2018 FRANK T Primary FRANK Jaimes [place] [id number] N Insurance:MEDICAL EDINGTONDOB: [facility] 2383-66-30RWTL[place], [place] Number: Repository [address]Lly: 330 [id number] [phone] (HP) Date:3756-78-40MS [address] [address]CL: 03/10/2018 Secondary NOT GIVENUNK [place] Insurance:SELF PAY [facility] Number: Effective Repository Date:2018-03-10 03/03/2018 FRANK T Primary FRANK T [place] [id number] N Insurance:MEDICAL EDINGTONDOB: [facility] 8159-93-73DHFLachine, [place] Number: Repository [address]Zdr: 330 [id number] [phone] (HP) Date:3810-52-65UU [address] [address]HB: 03/03/2018 Secondary NOT GIVENUNK [place] Insurance:SELF PAY [facility] Number: Effective Repository Date:2017-11-16 03/01/2018 FRANK T Primary FRANK T [place] [id number] N Insurance:MEDICAL EDINGTONDOB: [facility] 4932-69-84[place]NN[place] Number: Repository [address]Fjj: (330 [id number] [phone] (HP) Date:9738-09-14AT [address] [address]SH: 03/01/2018 Secondary NOT GIVENUNK [place] Insurance:SELF PAY [facility] Number: Effective Repository Date:2018-02-20 02/15/2018 FRANK T Primary FRANK T [place] [id number] N Insurance:MEDICAL EDINGTONDOB: [facility] 5704-49-37IMKLachine, [place] Number: Repository [address]Bdo: (330 [id number] [phone] (HP) Date:2362-92-03BS [address] [address]SV: 02/15/2018 Secondary NOT GIVENUNK [place] Insurance:SELF PAY [facility] Hospital Number: Effective Repository Date:2018-02-09 02/08/2018 FRANK T Primary FRANK T [place] [id number] N Insurance:MEDICAL EDINGTONDOB: [facility] 5743-00-24ACCL[place], [place] Number: Repository [address]Jbd: 330 [id number] [phone] (HP) Date:7939-54-56OH [address] [address]JB: 02/08/2018 Secondary NOT GIVENUNK [place] Insurance:SELF PAY [facility] Number: Effective Repository Date:2018-02-08 01/06/2018 FRANK T Primary FRANK Jaimes [place] [id number] N Insurance:MEDICAL EDINGTONDOB: [facility] 1827-60-61[place], [place] Number: Repository [address]Jyj: 330 [id number] [phone] (HP) Date:5885-34-44QV [address] [place] [address]SH: 01/06/2018 Secondary NOT GIVENUNK [place] Insurance:SELF PAY [facility] Number: Effective Repository Date:2017-12-23 12/18/2017 FRANK T Primary FRANK Jaimes [place] [id number] N Insurance:MEDICAL EDINGTONDOB: [facility] 7918-77-12AWVL[place], [place] Number: Repository [address]Dxv: 330 [id number] [phone] (HP) Date:3941-16-67CX [address] [place] [address]VA: 12/18/2017 Secondary NOT GIVENUNK [place] Insurance:SELF PAY [facility] Number: Effective Repository Date:2017-12-17 12/15/2017 FRANK T Primary FRANK Jaimes [place] [id number] N Insurance:MEDICAL EDINGTONDOB: [facility] 4625-41-09PQILachine, [place] Number: Repository [address]Xxb: 330 [id number] [phone] (HP) Date:3816-75-29AQ [address] [place] [address]DL: 12/15/2017 Secondary NOT GIVENUNK [place] Insurance:SELF PAY [facility] Hospital Number: Effective Repository Date:2017-12-14 12/15/2017 FRANK T Primary FRANK T [place] [id number] N Insurance:MEDICAL EDINGTONDOB: [place]347-01-[place] Number: Repository [address]Xpj: 330 [id number] [phone] (HP) Date:8632-33-50AQ [address] [place] [address]OX: 12/15/2017 Secondary NOT GIVENUNK [place] Insurance:SELF PAY [facility] Number: Effective Repository Date:2017-12-15 12/15/2017 FRANK T Primary FRANK T [place] [id number] N Insurance:MEDICAL EDINGTONDOB: [facility] 7361-85-25FDTLachine, [place] Number: Repository [address]Fuu: 330 [id number] [phone] (HP) Date:4675-65-27PG [address] [place] [address]NU: 12/15/2017 Secondary NOT GIVENUNK [place] Insurance:SELF PAY [facility] Number: Effective Repository Date:2017-12-15 12/15/2017 FRANK T Primary FRANK T [place] [id number] N Insurance:MEDICAL EDINGTONDOB: [facility] 7244-53-69BEPLachine, [place] Number: Repository [address]Ayz: 330 [id number] [phone] (HP) Date:7510-72-78PR [address] [address]HZ: 12/15/2017 Secondary NOT GIVENUNK [place] Insurance:SELF PAY [facility] Number: Effective Repository Date:2017-12-15 12/15/2017 FRANK T Primary FRANK T [place] [id number] N Insurance:MEDICAL EDINGTONDOB: [facility] 9156-39-68TZPLachine, [place] Number: Repository [address]Ggx: 330 [id number] [phone] (HP) Date:5775-29-19AZ [address] [address]WJ: 12/15/2017 Secondary NOT GIVENUNK [place] Insurance:SELF PAY [facility] Hospital Number: Effective Repository Date:2017-12-15 12/15/2017 FRANK T Primary FRANK Jaimes [place] [id number] N Insurance:MEDICAL EDINGTONDOB: [facility] 9977-32-04QRILachine, [place] Number: Repository [address]Ulf: 330 [id number] [phone] () Date:4332-71-54GE [address] [address]JE: 12/15/2017 Secondary NOT GIVENUNK [place] Insurance:SELF PAY [facility] Hospital Number: Effective Repository Date:2017-12-15 12/15/2017 FRANK T Primary FRANK T [place] [id number] N Insurance:MEDICAL EDINGTONDOB: [facility] 7245-79-56UWWLachine, [place] Number: Repository [address]Xwh: 330 [id number] [phone] () Date:6543-46-42[address] [address]OO: 12/15/2017 Secondary NOT GIVENUNK [place] Insurance:SELF PAY [facility] Number: Effective Repository Date:2017-12-15 12/15/2017 FRANK T Primary FRANK T [place] [id number] N Insurance:MEDICAL EDINGTONDOB: [facility] 6348-14-37XROLachine, [place] Number: Repository [address]Umr: 330 [id number] [phone] () Date:9774-59-45OO [address] [address]LM: 12/15/2017 Secondary NOT GIVENUNK [place] Insurance:SELF PAY [facility] Number: Effective Repository Date:2017-12-15 12/15/2017 FRANK T Primary FRANK T [place] [id number] N Insurance:MEDICAL EDINGTONDOB: [facility] 6907-46-45PHTLachine, [place] Number: Repository [address]Nzq: 330 [id number] [phone] (HP) Date:1203-77-03OF [address] [place] [address]UC: 12/15/2017 Secondary NOT GIVENUNK [place] Insurance:SELF PAY [facility] Number: Effective Repository Date:2017-12-15 12/15/2017 FRANK T Primary FRANK T [place] [id number] N Insurance:MEDICAL EDINGTONDOB: [facility] 3753-80-56DVCLachine, [place] Number: Repository [address]Rjl: 330 [id number] [phone] (HP) Date:2714-98-95QW [address] [place] [address]GN: 12/15/2017 Secondary NOT GIVENUNK [place] Insurance:SELF PAY [facility] Number: Effective Repository Date:2017-12-15 12/15/2017 FRANK T Primary FRANK T [place] [id number] N Insurance:MEDICAL EDINGTONDOB: [facility] 2625-16-53JJMLachine, [place] Number: Repository [address]Pxz: 330 [id number] [phone] (HP) Date:2757-15-74PX [address] [address]BW: 12/15/2017 Secondary NOT GIVENUNK [place] Insurance:SELF PAY [facility] Number: Effective Repository Date:2017-12-15 12/15/2017 FRANK T Primary FRANK T [place] [id number] N Insurance:MEDICAL EDINGTONDOB: [facility] 2275-09-94ZVFL[place], [place] Number: Repository [address]Crh: 330 [id number] [phone] (HP) Date:3703-77-42ZW [address] [address]KN: 12/15/2017 Secondary NOT GIVENUNK [place] Insurance:SELF PAY [facility] Number: Effective Repository Date:2017-12-15 12/12/2017 FRANK T Primary FRANK Jaimes [place] [id number] N Insurance:MEDICAL EDINGTONDOB: [facility] 6328-57-66LXAL[place], [place] Number: Repository [address]Nkr: 330 [id number] [phone] () Date:0346-24-32RM [address] [place] [address]RI: 12/12/2017 Secondary NOT GIVENUNK [place] Insurance:SELF PAY [facility] Hospital Number: Effective Repository Date:2017-12-12 11/16/2017 FRANK T Primary FRANK Jaimes [place] [id number] N Insurance:MEDICAL EDINGTONDOB: [facility] 0045-23-53MSLLachine, [place] Number: Repository [address]Vui: 330 [id number] [phone] () Date:1320-89-01VU [address] [place] [address]DO: 11/16/2017 Secondary NOT GIVENUNK [place] Insurance:SELF PAY [facility] Number: Effective Repository Date:2017-11-16 11/16/2017 FRANK T Primary FRANK Jaimes [place] [id number] N Insurance:MEDICAL EDINGTONDOB: [facility] 6447-86-62PLULachine, [place] Number: Repository [address]Hjm: 330 [id number] [phone] () Date:2240-58-92OI [address] [place] [address]AQ: 11/16/2017 Secondary NOT GIVENUNK [place] Insurance:SELF PAY [facility] Number: Effective Repository Date:2017-11-16 11/04/2017 FRANK T Primary FRANK Jaimes Lux [id number] N Insurance:MEDICAL EDINGTONDOB: [address]01-[place], [place] Number: Repository [address]Jpz: 330 [id number] [phone] () Date:2494-21-96VC [address] [address]FX: 11/04/2017 Secondary NOT GIVENUNK [place] Insurance:SELF PAY [facility] Number: Effective Repository Date:2017-11-04 10/27/2017 [facility]:Medical EdingtonDOB: [facility] N [facility] [id number] Repository [facility] Number: [place] [id number] [place], [place] [address]Nav: (330) Date:Plan Name:Health 65840Fkk: (HP) [phone] (HP) 10/27/2017 FRANK Primary [facility] [place] [id number] N Insurance:MEDICAL EDINGTONDOB: [facility] 5412-18-10RHNLachine, [place] Number: Repository [address]Zsn: 330 [id number] [phone] () Date:2744-21-38PX [address] [address]VA: 10/27/2017 Secondary NOT GIVENUNK [place] Insurance:SELF PAY [facility] Number: Effective Repository Date:2017-10-27 10/26/2017 [id number] Insurance:MEDICAL EDINGTONDOB: [facility] 7338-20-85[place]LLachine, [place] Number: Repository [address]Sjt: 330 [id number] [phone] (HP) Date:8469-80-78QA [address] [address]VM: 10/26/2017 Secondary NOT GIVENUNK [place] Insurance:SELF PAY [facility] Number: Effective Repository Date:2017-10-26 10/26/2017 FRANK T Primary FRANK Jaimes [place] [id number] N Insurance:MEDICAL EDINGTONDOB: [facility] 9759-50-16TPZLachine, [place] Number: Repository [address]Dtk: 330 [id number] [phone] () Date:8959-51-72[address] [address]CS: 10/26/2017 Secondary NOT GIVENUNK [place] Insurance:SELF PAY [facility] Number: Effective Repository Date:2017-10-26 10/26/2017 FRANK T Primary FRANK Jaimes [place] [id number] N Insurance:MEDICAL EDINGTONDOB: [facility] 0117[place] Number: Repository [id number]: 330 [id number] [phone] () Date:6393-68-11UE[address] [address]UB: 10/26/2017 Secondary NOT GIVENUNK Lux Insurance:SELF PAY [facility] Number: Effective Repository Date:2017-10-26 10/26/2017 FRANK T Primary FRANK Jaimse [place] [id number] N Insurance:MEDICAL EDINGTONDOB: [facility] 0144-81-33KWWL[place] Number: Repository [id number]: 330 [id number] [phone] () Date:7792-53-62SL[address] [address]TN: 10/26/2017 Secondary NOT GIVENUNK [place] Insurance:SELF PAY [facility] Number: Effective Repository Date:2017-10-08 09/14/2017 FRANK T Primary FRANK Jaimes [place] [id number] N Insurance:MEDICAL EDINGTONDOB: [facility] 6867-40-53KCGL[place] Number: Repository [address]Dwu: 330 [id number] [phone] (HP) Date:6408-50-95YK [address] [address]LF: 09/14/2017 Secondary NOT GIVENUNK [place] Insurance:SELF PAY [facility] Number: Effective Repository Date:2017-09-14 07/15/2017 FRANK T Primary FRANK T [place] [id number] N Insurance:MEDICAL EDINGTONDOB: [facility] 7935-94-62YDQL[place] Number: Repository [address]Cln: 330 [id number] [phone] (HP) Date:1316-27-27AM [address] [address]KP: 07/15/2017 Secondary NOT GIVENUNK Lux Insurance:SELF PAY [facility] Number: Effective Repository Date:2017-06-02 07/03/2017 FRANK T Primary FRANK T Lux [id number] N Insurance:MEDICAL EDINGTONDOB: [facility] 7913-38-93QIPLachine[place] Number: Repository [id number]: 330 [id number] [phone] () Date:2021-35-40KG [address] [address]BJ: 07/03/2017 Secondary NOT GIVENUNK [place] Insurance:SELF PAY [facility] Number: Effective Repository Date:2017-06-21 07/01/2017 FRANK T Primary FRANK T Lux [id number] N Insurance:MEDICAL EDINGTONDOB: [facility] 4831-69-86TORL[place] Number: Repository [id number]: 330 [id number] [phone]) Date:2742-92-35UC [address] [address]SF: 07/01/2017 Secondary NOT GIVENUNK Lux Insurance:SELF PAY [facility] Number: Effective Repository Date:2017-06-16 07/01/2017 FRANK T Primary FRANK T [place] [id number] N Insurance:MEDICAL EDINGTONDOB: [facility] 3582-60-53XEPL[place] Number: Repository [address]Yje: 330 [id number] [phone] (HP) Date:0868-81-68EE[address] [address]YG: 07/01/2017 Secondary NOT GIVENUNK [place] Insurance:SELF PAY [facility] Number: Effective Repository Date:2017-07-01 06/22/2017 FRANK T Primary FRANK T [place] [id number] N Insurance:MEDICAL EDINGTONDOB: [facility] 8419-09-13IGNL[place] Number: Repository [address]Cwn: 330 [id number] [phone] () Date:4340-66-33HC[address] [address]SV: 06/22/2017 Secondary NOT GIVENUNK Lux Insurance:SELF PAY [facility] Number: Effective Repository Date:2017-06-22 06/19/2017 FRANK T Primary FRANK T Lux [id number] N Insurance:MEDICAL EDINGTONDOB: [facility] 5289-45-38OIJL[place] Number: Repository [address]Xve: 330 [id number] [phone] () Date:9004-70-18SC[address] [address]QU: 06/19/2017 Secondary NOT GIVENUNK [place] Insurance:SELF PAY [facility] Number: Effective Repository Date:2017-06-08 06/09/2017 FRANK T Primary FRANK T [employer] EDINGTONDOB: Insurance:[employer] EDINGTONDOB: [place] N Number: [id number] Paul [facility] [id number] N [place], [place] Date:3919-71-68Rwtv [place], [place] Repository [address]Elk: (330) Name:MANAGED CARE [id number]: () [phone] () 06/09/2017 [facility] [place] N Number: [id number] [facility] [id number] [place], [place] Date:1222-10-49Awyn [place], [place] Repository [address]Emn: (330) Name:MANAGED CARE [id number]: () [phone] () 06/09/2017 FRANK T Primary FRANK T [facility] Medicine[facility]: [place] N Number: [id number] [facility] [id number] [place], [place] Date:1573-35-28Uzri [place], [place] Repository [address]Zrb: (330) Name:MANAGED CARE [id number]: () [phone] () 06/09/2017 FRANK T Primary FRANK T [facility] EDINGTONDOB: [facility] [place] N Number: [id number] [facility] [id number] [place], [place] Date:2378-88-89Urwi [place] Repository [address]Htp: (330) Name:MANAGED CARE [id number]: (HP) [phone] () 06/09/2017 FRANK T Primary FRANK T [facility] HospitalOND[facility]: [place] N Number: [id number] [facility] [id number] N [place], [place] Date:2155-83-67Mucv [place] Repository [address]Bra: (330) Name:MANAGED CARE [id number]: (HP) [phone] (HP) 06/08/2017 FRANK T Primary FRANK T Lux [id number] N Insurance:MEDICAL EDINGTONDOB: [facility] 5287-33-26DUPLachine[place] Number: Repository [address]Nty: 330 [id number] [phone] () Date:1690-47-34KN [address] [address]WQ: 06/08/2017 Secondary NOT GIVENUNK Lux Insurance:SELF PAY [facility] Number: Effective Repository Date:2017-06-01 06/08/2017 FRANK T Primary FRANK T Lux [id number] N Insurance:MEDICAL EDINGTONDOB: [facility] 5140-57-17VKFL[place] Number: Repository [address]Jet: 330 [id number] [phone] () Date:9610-37-25JS[address] [address]ZC: 06/08/2017 Secondary NOT GIVENUNK Lux Insurance:SELF PAY [facility] Number: Effective Repository Date:2017-06-05 06/05/2017 FRANK T Primary FRANK T [facility] EDINGTONDOB: Insurance:[employer] EDINONDOB: [place] N Number: [id number] [facility] [id number] N [place], [place] Date:9292-63-47Ewnu [place] Repository [address]Uzv: ([phone]) Name:MANAGED CARE [address]Wwq: (HP) [phone] (HP) 06/04/2017 FRANK T Primary FRANK T [facility] EDINGTONDOB: Insurance:MMOPolicy EDINGTONDOB: [place] N Number: [id number] [facility] [id number] N [place], [place] Date:1887-63-26Vtiu [place] Repository [address]Edg: 330 Name:MANAGED CARE [id number]: () [phone] () 06/01/2017 FRANK T Primary FRANK T Lux [id number] N Insurance:MEDICAL EDINGTONDOB: [facility] 6033-25-48RDWL[place] Number: Repository [address]Ocj: 330 [id number] [phone] () Date:2133-31-49MX [address] [address]XS: 06/01/2017 Secondary NOT GIVENUNK [place] Insurance:SELF PAY [facility] Number: Effective Repository Date:2017-05-08 06/01/2017 FRANK T Primary FRANK T [place] [id number] N Insurance:MEDICAL EDINGTONDOB: [facility] 2556-80-64YDTL[place] Number: Repository [id number]: 330 [id number] [phone] () Date:5352-98-32IE [address] [address]VX: 06/01/2017 Secondary NOT GIVENUNK [place] Insurance:SELF PAY [facility] Number: Effective Repository Date:2017-06-01 05/30/2017 FRANK T Primary FRANK T [facility] EDINGTONDOB: Insurance:MMOPolicy EDINGTONDOB: [place] N Number: [id number] [facility] [id number] N [place], [place] Date:9112-91-46Iflb [place] Repository [address]Zvt: ([phone]) Name:MANAGED CARE [id number]: (HP) [phone] (HP) 05/25/2017 FRANK T Primary FRANK T Lux [id number] N Insurance:MEDICAL EDINGTONDOB: [facility] 6041-53-83ZYVL[place] Number: Repository [address]Zky: 330 [id number] [phone] () Date:7658-71-95TI [address] [place] [address]XQ: 05/25/2017 Secondary NOT GIVENUNK Lux Insurance:SELF PAY [facility] Number: Effective Repository Date:2017-05-25 05/25/2017 FRANK T Primary [facility] T [facility] Medicine[facility]: [place] N Number: [id number] [facility] [id number] N [place] Date:0140-39-71Zkbz [place] Repository [address]Vwi: (330) Name:MANAGED CARE [id number]: () [phone] () 05/20/2017 FRANK T Primary FRANK T [facility] Medicine[facility]: [place] N Number: [id number] [facility] [id number] N [place] Date:2186-21-48Ovhn [place] Repository [address]Pbd: (330) Name:MANAGED CARE [address]056Chc: (HP) [phone] () 05/18/2017 FRANK T Primary FRANK T Lux [id number] N Insurance:MEDICAL EDINGTONDOB: [facility] 8171-41-99NOELachine[place] Number: Repository [id number]: 330 [id number] [phone] (HP) Date:6351-81-43UJ [address] [address]NF: 05/18/2017 Secondary NOT GIVENUNK [place] Insurance:SELF PAY [facility] Number: Effective Repository Date:2017-05-14 05/18/2017 FRANK T Primary FRANK T [place] [id number] N Insurance:MEDICAL EDINGTONDOB: [facility] 6470-69-91NZPL[place] Number: Repository [address]Lql: 330 [id number] [phone] () Date:5693-42-38YN [address] [address]NJ: 05/18/2017 Secondary NOT GIVENUNK [place] Insurance:SELF PAY [facility] Number: Effective Repository Date:2017-05-18 05/18/2017 FRANK T Primary FRANK T [facility] EDINGTONDOB: Insurance:[facility] Medicine[facility]: [place] N Number: [id number] [facility] [id number] N [place] Date:1726-13-33Hmly [place] Repository [address]Isj: (330) Name:MANAGED CARE [id number]: () [phone] () 05/17/2017 FRANK T Primary FRANK T [facility] HospitalGTONDOB: [facility]: [place] N Number: [id number] [facility] [id number] [place], [place] Date:7192-29-97Mlpn [place] Repository [address]Smp: (330) Name:MANAGED CARE [id number]: () [phone] () 05/07/2017 FRANK T Primary FRANK T [facility] Islandjer[facility] PORTILLOOB: [place] N Number: [id number] [facility] [id number] [place], [place] Date:8977-35-22Sjqk [place] Repository [address]Tyn: (330) Name:MANAGED CARE [id number]: () [phone] () 04/20/2017 FRANK T Primary FRANK T [facility]OND[facility]: Insurance:[facility]MP[facility] Centerjeromy EDWARDSMCLAREN NORTHERN MICHIGANOB: [place] N Number: [id number] [facility] [id number] [place] Date:6192-13-24Ytvj [place] Repository [address]Hhc: (330) Name:MANAGED CARE [id number]: () [phone] () 04/20/2017 FRANK T Primary FRANK T [facility] CenterOND[facility]: Insurance[facility]HRegions Hospitalgwendolyn [facility] HOSPITALOB: [place] N Number: [id number] [facility] [id number] [place], [place] Date:5547-60-38Kckb [place] Repository [address]Ndz: (330) Name:MANAGED CARE [id number]: () [phone] ()
== END ==
PROVIDERS: Family Provider Family Medicine; PCP Family Medicine; Referring Provider Family Medicine; Visit Provider Family Medicine
DX: N17.9 Acute kidney failure, unspecified (principal); D50.9 Iron deficiency anemia, unspecified
CPT/HCPCS: 36415; 80048; 82728; 83540; 85025

== ENCOUNTER 2018-04-19 08:00 | Outpatient (RCR) | payer OTHER, SELFPAY ==
[2018-04-01 13:12] VITALS: BMI 25.3
== END 2018-04-22 23:59 ==
LOC: CR 08:00
PROVIDERS: Family Provider Family Medicine; PCP Family Medicine; Referring Provider Internal Medicine Cardiovascular Disease; Visit Provider Internal Medicine Cardiovascular Disease
DX: Z95.2 Presence of prosthetic heart valve (principal)
CPT/HCPCS: 93798

== ENCOUNTER → 2018-04-23 09:09 | Outpatient (CLI) | payer OTHER, SELFPAY ==
[2018-04-01 13:12] VITALS: BMI 25.3
[2018-04-23 10:55] LABS: Protein, Urine (Random) 116.3 mg/dL (<11.9); Protein:Creat Ratio 1468 mg/g CRE (0-200)
[2018-04-23 11:13] LABS: Albumin, Serum 3.3 g/dL (3.2-5.0); BUN 55 mg/dL (7-18); BUN/Creat Ratio 18.9 RATIO (10-20); Calcium,Total 8.7 mg/dL (8.5-10.1); Chloride 114 mmol/L (98-107); Creatinine, Serum 2.91 mg/dL (0.70-1.30); EST Glomerular Filtration Rate 24 mL/min (>60); Est Glom Filt Rate - Afr Amer 28 mL/min (>60); Glucose 72 mg/dL (74-106); Phosphorus 4.7 mg/dL (2.5-4.9); Potassium 5.4 mmol/L (3.5-5.1); Sodium Level 140 mmol/L (136-145)
== END ==
PROVIDERS: Family Provider Family Medicine; PCP Family Medicine
DX: N18.6 End stage renal disease (principal)
CPT/HCPCS: 36415; 80069; 82570; 84156

== ENCOUNTER → 2018-04-29 09:34 | Outpatient (CLI) | payer OTHER, SELFPAY ==
[2018-04-01 13:12] VITALS: BMI 25.3
--- NOTE | 2018-04-29 09:44 | RAD_ITS ---
STUDY: X-RAY CHEST REASON FOR EXAM: Male, 63 years old. Cough. TECHNIQUE: PA and lateral views of the chest. COMPARISON: 02/08/2018 FINDINGS: There is a right-sided permacath in stable position with the tips in the right atrium. Pacer device wires are again seen overlying the left lower chest. The lungs remain hyperinflated. There is mild stranding right lung base unchanged since the prior exam and may be due to scarring. There is continued blunting of the right costophrenic angle. Sternal cerclage wires are present from a prior sternotomy. The heart size is normal. Normal visualized pulmonary arteries. There is atherosclerotic tortuosity of the aortic arch and descending thoracic aorta. The bony structures are unchanged. There is no demonstrated abnormality of the visualized soft tissue structures of the upper abdomen. RAD/Chest PA and Lateral IMPRESSION: 1. Mild stranding/scarring in the right lower lung unchanged as prior examination. 2. Blunting of the right costophrenic angle again unchanged. 3. No new infiltrate is seen. Electronically Signed: Adam Al MD at 10:22 EST Tel , Service support ,
== END ==
PROVIDERS: Family Provider Family Medicine; PCP Family Medicine; Referring Provider Family Medicine; Visit Provider Family Medicine
DX: J06.9 Acute upper respiratory infection, unspecified (principal)
CPT/HCPCS: 71046

== ENCOUNTER → 2018-04-30 09:15 | Outpatient (CLI) | payer OTHER, SELFPAY ==
[2018-04-01 13:12] VITALS: BMI 25.3
[2018-04-30 09:48] LABS: Absolute Lymphocyte Count 1.63 X10^3/ul (0.83-4.51); Absolute Neutrophil Count 1.5 X10^3/uL (2.0-7.7); Basophil# 0.04 X10^3/uL; Basophil% 1.1 % (0-1); Eosinophil# 0.12 X10^3/uL; Eosinophils% 3.3 % (0-5); Hematocrit 35.5 % (40-54); Lymphocyte # 1.63 X10^3/ul (4.0); Mean Corpuscular Volume 113.1 fL (80-94); Mean Platelet Vol. 9.5 fl (6.2-12.0); Monocyte# 0.33 X10^3/uL; Monocyte% 9.1 % (0-10); Neutrophil % 41.5 % (47-70); POSITIVE COUNT NO; POSITIVE DIFFERENTIAL NO; POSITIVE MORPHOLOGY NO; Platelet Count 121 K/mm3 (150-450); RBC Distribution Width CV 14.7 % (11.6-14.6); RBC Distribution Width SD 57.5 fl (35.1-43.9); Red Blood Count 3.14 M/mm3 (4.6-6.2); White Blood Count 3.6 K/mm3 (4.4-11.0)
[2018-04-30 10:27] LABS: AST(SGOT) 96 U/L (15-37); Alanine Aminotransfer ALT/SGPT 78 U/L (16-61); Albumin, Serum 3.4 g/dL (3.2-5.0); Alkaline Phosphatase 217 U/L (45-117); Anion Gap 10 (5-15); BUN 47 mg/dL (7-18); BUN/Creat Ratio 21.8 RATIO (10-20); Bilirubin, Direct 0.22 mg/dL (0.00-0.30); Calcium,Total 8.7 mg/dL (8.5-10.1); Chloride 117 mmol/L (98-107); Cholesterol 60 mg/dL (200); Creatinine, Serum 2.16 mg/dL (0.70-1.30); EST Glomerular Filtration Rate 33 mL/min (>60); Est Glom Filt Rate - Afr Amer 40 mL/min (>60); Ferritin 152 ng/mL (26-388); Globulin 5.1 g/dL (2.2-4.2); Glucose 82 mg/dL (74-106); High Density Lipoprotein 29 mg/dL; Iron 85 ug/dL (65-175); LDH 190 U/L (87-241); Phosphorus 4.1 mg/dL (2.5-4.9); Protein, Total 8.5 g/dL (6.4-8.2); Sodium Level 144 mmol/L (136-145); Triglycerides 97 mg/dL; Very Low Density Lipoprotein 19 mg/dL (5-40)
[2018-04-30 10:35] LABS: Vitamin D,25 Hydroxy 33.7 ng/mL (29.95-100.01)
[2018-04-30 10:43] LABS: PTHIN 76.1 pg/mL (18.4-80.1)
[2018-04-30 12:00] LABS: Protein, Urine (Random) 125.8 mg/dL (<11.9); Protein:Creat Ratio 2369 mg/g CRE (0-200)
[2018-05-01 11:13] LABS: Complement C3 114 mg/dL (82-167)
== END ==
PROVIDERS: Internal Medicine Cardiovascular Disease; Family Provider Family Medicine; PCP Family Medicine; Referring Provider Family Medicine; Visit Provider Family Medicine
DX: N18.6 End stage renal disease (principal); E78.5 Hyperlipidemia, unspecified; N17.9 Acute kidney failure, unspecified; D50.9 Iron deficiency anemia, unspecified
CPT/HCPCS: 36415; 80048; 80061; 80076; 82306; 82570; 82728; 83540; 83615; 83970; 84100; 84156; 85025; 86160

== ENCOUNTER 2018-05-19 08:00 | Outpatient (RCR) | payer OTHER, SELFPAY ==
[2018-04-01 13:12] VITALS: BMI 25.3
--- NOTE | 2018-05-03 08:56 | PCM.CR.ITP ---
Exercise - 30-day Assessment - Visit Date of Eval: 05/03/18 Session #:: 10 - Patient missed a few sessions due to pneumonia - Stages of Change Stages of Change:: Action - Exercise Prescription Mode:: Treadmill, Airdyne, NuStep Frequency (x/week): 3 Duration:: 30-45 min Target Heart Rate:: 119-127 w/ max HR 109 - Hypertension Resting Blood Pressure:: 122/68 Peak Exercise Blood Pressure:: 138/80 Medication Changes:: Yes - Started on antibiotic for bilateral pneumonia-chest X-ray - Intervention Home Exercise/Activity Goal:: Sitting Time <3 hrs/day - Education Goals:: Warm-up, RPE GABRIEL Scale, S/S, Safe Exercise, Self-Monitoring - Exercise Program Goals Exercise Program Goals: Aerobic Activity >30 min Nutrition - 30-Day Assessment - Program Goals Nutrition Program Goals: LDL <70. Total Cholesterol <200. HDL >45. Triglycerides <150. HgbA1C <7%. BMI <25 - Visit Date of Eval: 05/03/18 - Stages of Change Stages of Change:: Action - Lipids Has the patient seen the dietitian?: No - Diabetes Diabetes:: No - Weight Management Weight:: 208 lb - Intervention Referral to dietitian:: No Referral to Diabetic Clinic:: No Will attend diet classes:: Yes - Education Attended class for:: Healthy eating Tobacco - Initial Assessment - Program Goals Tobacco Program Goals: Complete smoking cessation. Attend education classes. Improve Knowledge Test score - Learning Barriers Learning Barriers: Vision, Ready to Learn Tobacco - 30-Day Assessment - Program Goals Tobacco Program Goals: Complete smoking cessation. Attend education classes. Improve Knowledge Test score - Stage of Change Stages of Change:: Action - Learning Barriers Learning Barriers: Participates in education - Family Support Do you have family support?: Yes - Tobacco Use Tobacco Use: Non-smoker - Education Attended class for:: Coronary artery disease, Risk factors, Sexuality, Medical compliance, Cardiac A&P, Angina signs & symptoms Psychosocial - 30-Day Assess - Target Goals Target Goals: Assess presence or absence of depression. Using a valid screening tool, maximizes coping skills. Positive support system - Stages of Change Stages of Change:: Action - Psychosocial Test Tool Used:: HANDS Depression Questionnaire - Intervention PS - Interventions: Yes Attend Stress Management Classes, Yes Uses Stress Management Skills, No Referral to Mental Health, No Referral to [facility] Case Management, No Referral to Physician - Education Attended classes for:: Coping techniques, Signs & symptoms of depression, Stress management, Relaxation techniques - Patient/Program Goal Preventative Medication(s):: Aspirin, MICHAEL inhibitor, Clopidogrel, Beta magdy, Statin/lipid - Assistive Devices Assistive Devices:: None Fall Risk Assessed:: Yes Patient Health Questionnaire 30-Day Re-eval Assessment 1. Little interest or pleasure in doing things: Not at all 2. Feeling down, depressed, or hopeless: Not at all 3. Trouble falling or staying asleep, or sleeping too much: Several days 4. Feeling tired or having little energy: Several days 5. Poor appetite or overeating: Not at all 6. Feeling bad about yourself -- or that you are a failure or have let yourself or your family down: Not at all 7. Trouble concentrating on things, such as reading the newspaper or watching television: Not at all 8. Moving or speaking so slowly that other people could have noticed. Or the opposite - being so fidgety or restless that you have been moving around a lot more than usual: Not at all 9. Thoughts that you would be better off , or of hurting yourself in some way: Not at all Total Score: 2 Self-Efficacy 30-Day Re-eval Assessment We would like to know how confident you are in doing certain activities. Please select your confidence level for:: Select your confidence level for the following using the scale 1-10 where 1 is not at all confident and 10 is totally confident. Your score is the average of all 6 responses. Fatigue: How confident are you that you can keep the fatigue caused by your disease from interfering with the things you want to do? Select Number: 8 Physical Discomfort or Pain: How confident are you that you can keep the physical discomfort or pain of your disease from interfering with the things you want to do? Select Number: 8 Emotional Distress: How confident are you that you can keep the emotional distress caused by your disease from interfering with the things you want to do? Select Number: 7 Other Symptoms or Health Problems: How confident are you that you can keep other symptoms or health problems from interfering with the things you want to do? Select Number: 9 Different Tasks and Activities: How confident are you that you can do the different tasks and activities needed to manage your health condition so as to reduce your need to see a doctor? Select Number: 9 Medication: How confident are you that you can do things other than just taking medication to reduce how much your illness affects your everyday life? Select Number: 9 Total Score:: 8
[2018-05-03 09:28] VITALS: BP 122/68; BP 138/80
== END 2018-05-20 23:59 ==
LOC: CR 08:00
PROVIDERS: Family Provider Family Medicine; PCP Family Medicine; Referring Provider Internal Medicine Cardiovascular Disease; Visit Provider Internal Medicine Cardiovascular Disease
DX: Z95.2 Presence of prosthetic heart valve (principal)
CPT/HCPCS: 93798

== ENCOUNTER 2018-05-21 11:10 | Outpatient (RCR) | payer OTHER, SELFPAY ==
[2018-04-01 13:12] VITALS: BMI 25.3
[2018-05-21 01:21] VITALS: BP 122/68; BP 138/80
== END 2018-05-21 11:13 | disposition home or self-care (01) ==
LOC: CR 11:10
PROVIDERS: Family Provider Family Medicine; PCP Family Medicine; Referring Provider Internal Medicine Cardiovascular Disease; Visit Provider Internal Medicine Cardiovascular Disease
DX: Z95.2 Presence of prosthetic heart valve (principal)
CPT/HCPCS: 93798

== ENCOUNTER → 2018-06-12 11:18 | Outpatient (CLI) | payer OTHER, SELFPAY ==
[2018-05-21 16:10] VITALS: BMI 25.3
[2018-06-12 12:55] LABS: Anion Gap 4 (5-15); BUN 45 mg/dL (7-18); BUN/Creat Ratio 20.2 RATIO (10-20); Calcium,Total 8.3 mg/dL (8.5-10.1); Chloride 116 mmol/L (98-107); Creatinine, Serum 2.23 mg/dL (0.70-1.30); EST Glomerular Filtration Rate 32 mL/min (>60); Est Glom Filt Rate - Afr Amer 39 mL/min (>60); Glucose 86 mg/dL (74-106); Potassium 5.8 mmol/L (3.5-5.1); Sodium Level 138 mmol/L (136-145)
== END ==
PROVIDERS: Family Provider Family Medicine; PCP Family Medicine; Referring Provider Internal Medicine Nephrology; Visit Provider Internal Medicine Nephrology
DX: N17.9 Acute kidney failure, unspecified (principal)
CPT/HCPCS: 36415; 80048

== ENCOUNTER → 2018-07-12 | Outpatient (CLI) | payer OTHER, SELFPAY ==
[2018-05-21 16:10] VITALS: BMI 25.3
[2018-07-12 17:09] LABS: White Blood Count 6.1 K/mm3 (4.4-11.0)
[2018-07-12 17:10] LABS: Hematocrit 36.5 % (40-54); Hemoglobin 11.7 g/dl (13.0-16.5); Mean Corp Hgb Conc 32.1 g/gl (32-36); Mean Corpuscular Hgb 33.2 pg (27.0-32.0); Mean Corpuscular Volume 103.7 fL (80-94); Mean Platelet Vol. 9.2 fl (6.2-12.0); Platelet Count 163 K/mm3 (150-450); RBC Distribution Width CV 14.2 % (11.6-14.6); RBC Distribution Width SD 52.8 fl (35.1-43.9); Red Blood Count 3.52 M/mm3 (4.6-6.2); Scan Indicated on CBC? Y/N NO
[2018-07-12 17:15] LABS: Protein, Urine (Random) 101.6 mg/dL (<11.9); Protein:Creat Ratio 1542 mg/g CRE (0-200)
[2018-07-12 17:39] LABS: Vitamin B12 964 pg/mL (211-911); Vitamin D,25 Hydroxy 26.5 ng/mL (29.95-100.01)
[2018-07-12 17:40] LABS: PTHIN 172.4 pg/mL (18.4-80.1)
[2018-07-12 17:45] LABS: Albumin, Serum 3.4 g/dL (3.2-5.0); BUN 30 mg/dL (7-18); BUN/Creat Ratio 14.9 RATIO (10-20); Calcium,Total 8.7 mg/dL (8.5-10.1); Chloride 112 mmol/L (98-107); Creatinine, Serum 2.01 mg/dL (0.70-1.30); EST Glomerular Filtration Rate 36 mL/min (>60); Est Glom Filt Rate - Afr Amer 44 mL/min (>60); Glucose 83 mg/dL (74-106); Iron 74 ug/dL (65-175); Iron Binding Capacity,Total 230 ug/dL (250-450); Phosphorus 3.5 mg/dL (2.5-4.9); Potassium 5.6 mmol/L (3.5-5.1); Sodium Level 140 mmol/L (136-145)
== END | disposition home or self-care (01) ==
LOC: LAB 16:35
PROVIDERS: Family Provider Family Medicine; PCP Family Medicine; Referring Provider Internal Medicine Nephrology; Visit Provider Internal Medicine Nephrology
DX: D64.9 Anemia, unspecified (principal); N17.9 Acute kidney failure, unspecified
CPT/HCPCS: 36415; 80069; 82306; 82570; 82607; 82746; 83540; 83550; 83970; 84156; 85027

== ENCOUNTER → 2018-08-27 | Outpatient (CLI) | payer OTHER, SELFPAY ==
[2018-05-21 16:10] VITALS: BMI 25.3
[2018-08-27 08:41] LABS: Absolute Lymphocyte Count 2.42 X10^3/ul (0.83-4.51); Absolute Neutrophil Count 3.2 X10^3/uL (2.0-7.7); Basophil# 0.03 X10^3/uL; Basophil% 0.5 % (0-1); Eosinophil# 0.07 X10^3/uL; Eosinophils% 1.1 % (0-5); Hematocrit 37.1 % (40-54); Hemoglobin 12.4 g/dl (13.0-16.5); Lymphocyte # 2.42 X10^3/ul (4.0); Lymphocyte % 39.2 % (19-41); Mean Corp Hgb Conc 33.4 g/gl (32-36); Mean Corpuscular Hgb 33.5 pg (27.0-32.0); Mean Corpuscular Volume 100.3 fL (80-94); Mean Platelet Vol. 9.2 fl (6.2-12.0); Monocyte# 0.44 X10^3/uL; Monocyte% 7.1 % (0-10); Neutrophil % 51.9 % (47-70); Platelet Count 144 K/mm3 (150-450); RBC Distribution Width CV 14.4 % (11.6-14.6); RBC Distribution Width SD 52.5 fl (35.1-43.9); White Blood Count 6.2 K/mm3 (4.4-11.0)
[2018-08-27 08:43] LABS: POSITIVE COUNT NO; POSITIVE DIFFERENTIAL NO; POSITIVE MORPHOLOGY NO
[2018-08-27 08:54] LABS: Anion Gap 4 (5-15); BUN 40 mg/dL (7-18); Calcium,Total 8.6 mg/dL (8.5-10.1); Chloride 120 mmol/L (98-107); Creatinine, Serum 2.22 mg/dL (0.70-1.30); EST Glomerular Filtration Rate 32 mL/min (>60); Est Glom Filt Rate - Afr Amer 39 mL/min (>60); Glucose 94 mg/dL (74-106); Potassium 4.5 mmol/L (3.5-5.1); Sodium Level 143 mmol/L (136-145)
== END | disposition home or self-care (01) ==
LOC: LAB 08:20
PROVIDERS: Family Provider Family Medicine; PCP Family Medicine; Referring Provider Physician Assistant Medical; Visit Provider Physician Assistant Medical
DX: I25.10 Atherosclerotic heart disease of native coronary artery without angina pectoris (principal)
CPT/HCPCS: 36415; 80048; 85025

== ENCOUNTER → 2018-10-09 | Outpatient (CLI) | payer OTHER, SELFPAY ==
[2018-08-27 16:03] VITALS: BMI 25.3
[2018-10-09 10:46] LABS: Anion Gap 2 (5-15); BUN 33 mg/dL (7-18); BUN/Creat Ratio 16.1 RATIO (10-20); Calcium,Total 8.8 mg/dL (8.5-10.1); Chloride 118 mmol/L (98-107); Creatinine, Serum 2.05 mg/dL (0.70-1.30); EST Glomerular Filtration Rate 35 mL/min (>60); Est Glom Filt Rate - Afr Amer 43 mL/min (>60); Glucose 133 mg/dL (74-106); Potassium 4.5 mmol/L (3.5-5.1); Sodium Level 140 mmol/L (136-145)
[2018-10-09 10:55] LABS: Protein, Urine (Random) 43.7 mg/dL (<11.9); Protein:Creat Ratio 834 mg/g CRE (0-200)
== END | disposition home or self-care (01) ==
PROVIDERS: Family Provider Family Medicine; PCP Family Medicine; Referring Provider Internal Medicine Nephrology; Visit Provider Internal Medicine Nephrology
DX: N17.9 Acute kidney failure, unspecified (principal)
CPT/HCPCS: 36415; 80048; 82570; 84156

== ENCOUNTER → 2019-01-10 | Outpatient (CLI) | payer OTHER, SELFPAY ==
[2018-08-27 16:03] VITALS: BMI 25.3
--- NOTE | 2019-01-10 07:41 | ECHOD_ITS ---
Reason For Study: VALVE REPL Procedure This was a 2D Doppler, Color Flow transthoracic echocardiogram. Diminished parasternal window. Exam performed in department. Left Ventricle Normal LV size. Left ventricular systolic function is normal. The estimated ejection fraction is 65 %. Paradoxical septal wall motion compatible with a post open heart surgery state and/or electronic ventricular paced rhythm. There is evidence of diastolic dysfunction. No regional wall motion abnormalities noted. Right Ventricle Normal RV size. Normal systolic function. Atria The left atrium is moderately enlarged. The right atrium is mildly enlarged. No doppler evidence for ASD. Mitral Valve There is mild mitral annular calcification. Extension of the mitral annular calcification onto the mitral valve leaflet. Trivial mitral valve insufficiency. Tricuspid Valve Right ventricular systolic pressure estimated to be 43 mmHg. Status post tricuspid valve repair. Mild transvalvular insufficiency of the tricuspid valve. Aortic Valve Stable appearing bioprosthetic aortic valve apparatus. Trivial transvalvular insufficiency of the aortic valve. Pulmonic Valve Normal pulmonic valve. Mild (1+) pulmonic valve insufficiency. Great Vessels Mildly dilated aortic root. Pericardium/Pleural No pericardial effusion. MMode/2D Measurements & Calculations LVIDd: 4.7 cm IVSd: 1.2 cm LVOT diam: 2.2 cm LVIDs: 2.9 cm LVPWd: 1.2 cm LVOT area: 3.9 cm2 RVDd: 4.2 cm FS: 39.3 % Ao root diam: 4.2 cm LAV(MOD-bp): 105.6 ml LA A4 area: 32.2 cm2 LAV(MOD-bp) Indexed: 47.1 ml/m2 LAV(MOD-sp2): 92.6 ml LAV(MOD-sp4): 109.3 ml LA dimension(2D): 5.3 cm RA A4 area: 22.6 cm2 Time Measurements MV dec time: 0.32 sec Doppler Measurements & Calculations MV E max abdifatah: 112.9 cm/sec Lat Peak E' Abdifatah: 4.1 cm/sec Med Peak E' Abdifatah: 5.4 cm/sec MV A max abdifatah: 96.3 cm/sec E/E' lat: 27.3 E/E' med: 21.1 MV E/A: 1.2 Ao V2 max: 211.5 cm/sec AI max abdifatah: 492.6 cm/sec LV V1 max: 113.5 cm/sec Ao max P.9 mmHg AI max P.1 mmHg LV V1 max P.2 mmHg Ao V2 mean: 147.8 cm/sec AI dec slope: 253.8 cm/sec2 LV V1 mean P.0 mmHg Ao mean P.8 mmHg AI P1/2t: 568.4 msec LV V1 mean: 83.3 cm/sec Ao V2 VTI: 43.0 cm LV V1 VTI: 26.3 cm JANEL(I,D): 2.4 cm2 JANEL(V,D): 2.1 cm2 SV(LVOT): 102.0 ml PA V2 max: 106.9 cm/sec TR max abdifatah: 316.8 cm/sec TR max P.2 mmHg Interpretation Summary Left ventricular systolic function is normal. The estimated ejection fraction is 65 %. Paradoxical septal wall motion compatible with a post open heart surgery state and/or electronic ventricular paced rhythm. The left atrium is moderately enlarged. The right atrium is mildly enlarged. There is mild mitral annular calcification. Extension of the mitral annular calcification onto the mitral valve leaflet. Trivial mitral valve insufficiency. Status post tricuspid valve repair. Mild transvalvular insufficiency of the tricuspid valve. Stable appearing bioprosthetic aortic valve apparatus. Trivial transvalvular insufficiency of the aortic valve. Mild (1+) pulmonic valve insufficiency. Mildly dilated aortic root. Right ventricular systolic pressure estimated to be 43 mmHg. There is evidence of diastolic dysfunction. Ordering Physician: Sherman^Ambrocio^^^ Referring Physician: GRACY SHIN Performed By: Emma Sweet, RDCS, RVT
[2019-01-10 09:52] LABS: AST(SGOT) 21 U/L (15-37); Alanine Aminotransfer ALT/SGPT 19 U/L (16-61); Alkaline Phosphatase 183 U/L (45-117); Anion Gap 1 (5-15); BUN 30 mg/dL (7-18); BUN/Creat Ratio 15.9 RATIO (10-20); Bilirubin, Direct 0.14 mg/dL (0.00-0.30); Calcium,Total 8.7 mg/dL (8.5-10.1); Chloride 118 mmol/L (98-107); Cholesterol 69 mg/dL (200); Creatinine, Serum 1.89 mg/dL (0.70-1.30); EST Glomerular Filtration Rate 39 mL/min (>60); Est Glom Filt Rate - Afr Amer 47 mL/min (>60); Globulin 4.4 g/dL (2.2-4.2); Glucose 92 mg/dL (74-106); High Density Lipoprotein 31 mg/dL; Protein, Total 7.4 g/dL (6.4-8.2); Sodium Level 141 mmol/L (136-145); Triglycerides 104 mg/dL; Very Low Density Lipoprotein 21 mg/dL (5-40)
== END | disposition home or self-care (01) ==
PROVIDERS: Nurse Practitioner Family; Family Provider Family Medicine; PCP Family Medicine; Referring Provider Internal Medicine Cardiovascular Disease; Visit Provider Internal Medicine Cardiovascular Disease
DX: I25.10 Atherosclerotic heart disease of native coronary artery without angina pectoris (principal); E78.5 Hyperlipidemia, unspecified; D50.9 Iron deficiency anemia, unspecified; I08.0 Rheumatic disorders of both mitral and aortic valves; I35.0 Nonrheumatic aortic (valve) stenosis; I48.91 Unspecified atrial fibrillation; R00.1 Bradycardia, unspecified; Z95.0 Presence of cardiac pacemaker; Z95.3 Presence of xenogenic heart valve; Z98.890 Other specified postprocedural states
CPT/HCPCS: 36415; 80048; 80061; 80076; 93306

== ENCOUNTER → 2019-04-04 10:17 | Outpatient (CLI) | payer OTHER, SELFPAY ==
[2019-01-19 15:35] VITALS: BMI 25.3
[2019-04-04 13:11] LABS: Absolute Lymphocyte Count 1.78 X10^3/uL (0.83-4.51); Absolute Neutrophil Count 3.2 X10^3/uL (2.0-7.7); Basophil# 0.05 X10^3/uL; Basophil% 0.9 % (0-1); Eosinophil# 0.09 X10^3/uL; Eosinophils% 1.6 % (0-5); Hematocrit 39.7 % (40-54); Lymphocyte # 1.78 X10^3/ul (4.0); Lymphocyte % 32.1 % (19-41); Mean Corp Hgb Conc 32.7 g/dL (32-36); Mean Corpuscular Hgb 34.9 pg (27.0-32.0); Mean Corpuscular Volume 106.7 fL (80-94); Mean Platelet Vol. 10.1 fl (6.2-12.0); Monocyte# 0.46 X10^3/uL; Monocyte% 8.3 % (0-10); NRBC Flagged by Analyzer 0 % (0-5); Neutrophil # 3.15 X10^3/uL (2.7-7.7); Neutrophil % 56.7 % (47-70); Platelet Count 157 K/mm3 (150-450); RBC Distribution Width CV 13.3 % (11.6-14.6); Red Blood Count 3.72 M/mm3 (4.6-6.2); White Blood Count 5.6 K/mm3 (4.4-11.0)
[2019-04-04 13:26] LABS: Vitamin B12 563 pg/mL (211-911)
[2019-04-04 13:42] LABS: Anion Gap 4 (5-15); BUN 30 mg/dL (7-18); BUN/Creat Ratio 15.6 RATIO (10-20); Chloride 116 mmol/L (98-107); Creatinine, Serum 1.92 mg/dL (0.70-1.30); EST Glomerular Filtration Rate 38 mL/min (>60); Est Glom Filt Rate - Afr Amer 46 mL/min (>60); Ferritin 126 ng/mL (26-388); Glucose 88 mg/dL (74-106); Iron 106 ug/dL (65-175); Phosphorus 3.7 mg/dL (2.5-4.9); Potassium 4.7 mmol/L (3.5-5.1); Sodium Level 141 mmol/L (136-145); Thyroid Stim Hormone (TSH) 0.06 uIU/mL (0.358-3.74)
[2019-04-04 14:36] LABS: Protein, Urine (Random) 26.1 mg/dL (<11.9); Protein:Creat Ratio 356 mg/g CRE (0-200)
== END ==
PROVIDERS: Family Provider Family Medicine; PCP Family Medicine; Visit Provider Internal Medicine Nephrology
DX: N18.4 Chronic kidney disease, stage 4 (severe) (principal); E03.9 Hypothyroidism, unspecified; D50.9 Iron deficiency anemia, unspecified
CPT/HCPCS: 36415; 80048; 82040; 82306; 82570; 82607; 82728; 83540; 83970; 84100; 84156; 84443; 85025

== ENCOUNTER → 2019-04-08 07:09 | Outpatient (CLI) | payer OTHER, SELFPAY ==
[2019-01-19 15:35] VITALS: BMI 25.3
--- NOTE | 2019-04-08 07:12 | CT_ITS ---
STUDY: CT BRAIN WITHOUT CONTRAST REASON FOR EXAM: Male, 64 years old. CVA? POSSIBLE TIA IN PAST. SLURRED SPEECH RADIATION DOSAGE (If Supplied By Facility): CTDIvol = ( 44.99 ) mGy, DLP = ( 846.73 ) mGycm TECHNIQUE: Transaxial CT imaging of the brain was performed without administration of intravenous contrast material. Individualized dose optimization techniques were used for this CT. COMPARISON: October 26 2017. FINDINGS: Normal soft tissue structures. Normal calvarium. Calcific plaquing of the cavernous carotids Mild atrophy and periventricular white matter ischemic changes.. Normal basal ganglia and thalami. Normal brainstem. Normal cerebellum. Partial empty sella deformity likely of no significance There is no intracranial hemorrhage. There are no findings of an acute ischemic infarction. Normal visualized paranasal sinuses. No significant change since prior exam CT/Brain/Head without Contrast IMPRESSION: Mild atrophy and periventricular white matter ischemic changes. No evidence for acute bleed. If concern for acute infarct MRI recommended. Electronically Signed: Ramirez Guzman MD at 16:51 EST , Service support ,
== END ==
PROVIDERS: Family Provider Family Medicine; PCP Family Medicine; Referring Provider Family Medicine; Visit Provider Family Medicine
DX: R47.81 Slurred speech (principal); R27.0 Ataxia, unspecified; R20.2 Paresthesia of skin
CPT/HCPCS: 70450

== ENCOUNTER → 2019-05-25 09:40 | Outpatient (CLI) | payer BC, SELFPAY ==
[2019-04-28 10:21] VITALS: BMI 24.7
--- NOTE | 2019-05-25 09:43 | EKG12_ITS ---
Test Reason : ROUTINE Blood Pressure : / mmHG Vent. Rate : 095 BPM Atrial Rate : 095 BPM P-R Int : 118 ms QRS Dur : 176 ms QT Int : 410 ms P-R-T Axes : 112 -85 091 degrees QTc Int : 515 ms AV sequential or dual chamber electronic pacemaker Confirmed by ZO COLON ([id number]), restaurant expeditor DANETTE FRANCOIS ([id number]) on 05/25/2019 2:15:54 PM Referred By: Kev Denny Confirmed By:ZO COLON
--- NOTE | 2019-05-25 09:43 | CDU_ITS ---
Reason For Study: CVA Rt. Velocities/BP Lt. Velocities/BP Prox CCA 109.9/33.0 cm/sec. Prox CCA 80.9/19.3 cm/sec. Mid CCA 81.2/30.4 cm/sec. Mid CCA 61.1/21.5 cm/sec. Dist CCA 51.5/26.3 cm/sec. Dist CCA 68.8/25.9 cm/sec. Prox ICA 30.7/9.8 cm/sec. Prox ICA 58.1/24.1 cm/sec. Mid ICA 65.1/33.9 cm/sec. Mid ICA 65.8/27.4 cm/sec. Dist ICA 65.1/37.7 cm/sec. Dist ICA 60.3/32.8 cm/sec. Rt. ICA/CCA = 65.1/81.2=0.8. Lt. ICA/CCA = 65.8/61.1=1.1. Prox ECA 46.4/7.9 cm/sec. Prox ECA 58.1/12.0 cm/sec. Rt. Vert. 46.2/22.6 cm/sec. Lt. Vert. 21.5/0.0 cm/sec. Right Extracranial There is intimal thickening but no significant atherosclerotic plaque noted in the right common carotid artery. There is homogeneous, smooth atherosclerotic plaque noted in the right internal carotid artery. There is intimal thickening but no significant atherosclerotic plaque noted in the right external carotid artery. Antegrade flow is noted in the right vertebral artery. There is heterogeneous, irregular atherosclerotic plaque noted in the right bulb. Left Extracranial There is homogeneous, smooth atherosclerotic plaque noted in the left common carotid artery. There is homogeneous, smooth atherosclerotic plaque noted in the left internal carotid artery. There is intimal thickening but no significant atherosclerotic plaque noted in the left external carotid artery. Antegrade flow is noted in the left vertebral artery. There is heterogeneous, irregular atherosclerotic plaque noted in the left bulb. Interpretation Summary Minimal irregular plaque at the proximal right internal carotid with <50% stenosis <50% stenosis right external carotid Minimal smooth plaque at the origin of left internal carotid with <50% stenosis <50% stenosis left external carotid Patent, antegrade vertebrals bilaterally Ordering Physician: Kev Denny Referring Physician: Kev Denny Performed By: Katie Moreira, MELISA, RVT
== END ==
PROVIDERS: PCP Family Medicine; Referring Provider Psychiatry & Neurology Neurology; Visit Provider Psychiatry & Neurology Neurology
DX: I69.322 Dysarthria following cerebral infarction (principal)
CPT/HCPCS: 93005; 93880

== ENCOUNTER → 2019-08-10 14:12 | Outpatient (CLI) | payer BC, SELFPAY ==
[2019-04-28 10:21] VITALS: BMI 24.7
--- NOTE | 2019-08-10 15:10 | NEURO ---
NCS and/or EMG Patient Report Ordering Doctor: Kev Denny DATE OF SERVICE: 08/10/19 Frank White is a 64-year-old male who presents for electrodiagnostic testing of the upper limbs. He reports numbness and tingling in both hands, left greater than right. Electrodiagnostic findings: Median motor nerve demonstrates prolonged distal latency bilaterally with normal amplitude and reduced conduction velocity. Ulnar motor response normal bilaterally. Prolonged median and ulnar F waves. Prolonged median sensory latency at the wrist bilaterally. Prolonged right ulnar and left ulnar sensory latency. Normal radial sensory responses bilaterally. On needle EMG, all muscles tested in the upper limb showed no evidence of denervation. Decreased recruitment pattern noted in the first dorsal interosseous bilaterally. Electrodiagnostic impression: This is an abnormal study in the upper limbs. 1. Electrodiagnostic findings demonstrate bilateral median mononeuropathy. This is consistent with a moderate bilateral carpal tunnel syndrome. 2. Electrodiagnostic findings suggestive of bilateral ulnar sensory neuropathy. 3. Consider correlation with testing in the lower limbs. Patient reports lower extremity numbness in correlation would be necessary to better evaluate for peripheral polyneuropathy. If there are any further questions, please do not hesitate to contact me.
== END ==
PROVIDERS: PCP Family Medicine; Referring Provider Psychiatry & Neurology Neurology; Visit Provider Psychiatry & Neurology Neurology
DX: G56.03 Carpal tunnel syndrome, bilateral upper limbs (principal)
CPT/HCPCS: 95886; 95913

== ENCOUNTER → 2019-09-19 | Outpatient (CLI) | payer BC, SELFPAY ==
[2019-09-12 08:58] VITALS: BMI 25.4
[2019-09-19 09:13] LABS: Hematocrit 43.8 % (40-54); Hemoglobin 14.2 g/dL (13.0-16.5); Mean Corp Hgb Conc 32.4 g/dL (32-36); Mean Corpuscular Hgb 34.2 pg (27.0-32.0); Mean Corpuscular Volume 105.5 fL (80-94); Mean Platelet Vol. 9.8 fl (6.2-12.0); Platelet Count 125 K/mm3 (150-450); RBC Distribution Width CV 13.4 % (11.6-14.6); RBC Distribution Width SD 52.4 fl (35.1-43.9); Red Blood Count 4.15 M/mm3 (4.6-6.2); White Blood Count 5.1 K/mm3 (4.4-11.0)
[2019-09-19 10:11] LABS: PTHIN 143.7 pg/mL (18.4-80.1)
[2019-09-19 10:18] LABS: AST(SGOT) 16 U/L (15-37); Alanine Aminotransfer ALT/SGPT 19 U/L (16-61); Albumin, Serum 3.3 g/dL (3.2-5.0); Alkaline Phosphatase 164 U/L (45-117); Bilirubin, Direct 0.16 mg/dL (0.00-0.30); Cholesterol 78 mg/dL (200); Globulin 4.3 g/dL (2.2-4.2); High Density Lipoprotein 37 mg/dL; Protein, Total 7.6 g/dL (6.4-8.2); Triglycerides 104 mg/dL; Very Low Density Lipoprotein 21 mg/dL (5-40)
[2019-09-19 10:33] LABS: Protein, Urine (Random) 55.4 mg/dL (<11.9); Protein:Creat Ratio 743 mg/g CRE (0-200)
[2019-09-19 10:42] LABS: ALB/GLOB Ratio 0.7 RATIO (0.9-2.4); AST(SGOT) 17 U/L (15-37); Alanine Aminotransfer ALT/SGPT 19 U/L (16-61); Albumin, Serum 3.2 g/dL (3.2-5.0); Alkaline Phosphatase 161 U/L (45-117); Anion Gap 4 (5-15); BUN 33 mg/dL (7-18); BUN/Creat Ratio 18.4 RATIO (10-20); Calcium,Total 8.9 mg/dL (8.5-10.1); Chloride 114 mmol/L (98-107); Creatinine, Serum 1.79 mg/dL (0.70-1.30); EST Glomerular Filtration Rate 41 mL/min (>60); Est Glom Filt Rate - Afr Amer 50 mL/min (>60); Globulin 4.3 g/dL (2.2-4.2); Glucose 96 mg/dL (74-106); Phosphorus 4.1 mg/dL (2.5-4.9); Potassium 5.1 mmol/L (3.5-5.1); Protein, Total 7.5 g/dL (6.4-8.2); Sodium Level 140 mmol/L (136-145); Thyroid Stim Hormone (TSH) 0.11 uIU/mL (0.358-3.74)
[2019-09-20 20:07] LABS: Free Kappa Light Chains 136.8 mg/L (3.3-19.4); Free Lambda Light Chains 66.4 mg/L (5.7-26.3)
== END | disposition home or self-care (01) ==
LOC: LAB 08:39
PROVIDERS: Nurse Practitioner Family; PCP Family Medicine; Referring Provider Psychiatry & Neurology Neurology; Visit Provider Internal Medicine Nephrology
DX: N18.4 Chronic kidney disease, stage 4 (severe) (principal); E78.00 Pure hypercholesterolemia, unspecified; E78.5 Hyperlipidemia, unspecified; D63.1 Anemia in chronic kidney disease
CPT/HCPCS: 80053; 80061; 80076; 82306; 82570; 82746; 83883; 83970; 84100; 84156; 84443; 85027

== ENCOUNTER 2020-02-25 09:42 | Emergency (ER) | payer BC, SELFPAY ==
[2020-02-24 15:28] VITALS: BMI 24.7
[2020-02-25 09:43] VITALS: BP 137/81; PULSE 83; RESP 16; TEMP 36.4; O2SAT 97; BMI 26.2
--- NOTE | 2020-02-25 11:11 | ED.VIS.GEN ---
History of Present Illness Chief Complaint: Abscess Informant: Patient Onset: Days - 4 Context: Gradual Onset Timing: Continuous Quality: Sore Location: Left buttock Current Severity: Severe Maximum Severity: Severe Worsened by: Sitting, palpation Relieved by: Leaving alone Associated Symptoms: Pain radiating into posterior left thigh but not below the knee Narrative: Patient complaining of having a boil on his buttock. Started spontaneously. Has had them in the past but never in this location. He states this morning it started draining spontaneously and is foul-smelling. 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 He has a nonmetallic heart valve. He is on Plavix, he thinks because of a remote stroke. He has no history of coronary disease or stents or peripheral vascular disease that he knows of. - Past Medical History (1) Nonrheumatic tricuspid valve regurgitation Status: Chronic (2) Aortic stenosis Status: Chronic Comment: 27mm [employer] Richi Trifecta pericardial valve and 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 ligation with 40 mm Atricure Atriclip with Dr. Land of [facility] 05/07/2017; 05/07/17; aortic valve with root debridement and replacement with 26mm aortic homograft 01/19/18 @ [facility] (3) Atherosclerotic heart disease of [place] coronary artery without angina pectoris Status: Chronic (4) Atrial fibrillation Status: Chronic Comment: DCCV in 2018; (5) CVA, old, dysarthria Status: Chronic (6) Hyperlipidemia Status: Chronic (7) Iron deficiency anemia Status: Chronic (8) Left ventricular hypertrophy Status: Chronic (9) Polyneuropathy Status: Chronic (10) Sick sinus syndrome Status: Chronic Comment: S/P permanent pacemaker 05/13/2017; (11) S/P aortic valve replacement with bioprosthetic valve Status: Resolved Comment: 27mm [employer]. Richi Trifecta pericardial valve and 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 ligation with 40 mm Atricure Atriclip with Dr. Land of [facility] 05/07/2017; 05/07/17; aortic valve with root debridement and replacement with 26mm aortic homograft 01/19/18 @ [facility] (12) S/P tricuspid valve repair Status: Resolved Comment: zeinab estes Past Medical History - Allergies and Home Meds Allergies/Adverse Reactions: Allergies Penicillins Allergy (Verified 02/25/20 09:43) Hives Primary Care Physician: Tapan Cuellar DO [Primary Care Provider] - Surgical History: coronary bypass surgery - AVR Apr 2017, Elmer-en-y 1996, pacemaker implantation, - - Heart valve surgeries mitral and aortic Smoking Status: Current some day smoker - Family History Maternal Family History: Family History (Last Reviewed 02/09/20 @ 13:18 by Mariela Bonner) Father CAD (coronary artery disease) Mother CAD (coronary artery disease) Thyroid disorder Sister Thyroid cancer Grandmother Diabetes Grandfather Alcoholism Family History: Reports: No pertinent history Review of Systems General: Denies: Chills, Fever, Sweats Eyes: Denies: Visual changes - bilaterally, Diplopia ENT: Denies: Rhinorrhea, Sore throat Cardiovascular: Denies: Chest pain, Palpitations Respiratory: Denies: Dyspnea, Cough, Dyspnea on exertion Gastrointestinal: Denies: Abdominal pain, Nausea, Vomiting, Diarrhea, Melena, Hematochezia Genitourinary: Denies: Dysuria, Hematuria, Frequency Musculoskeletal: Reports: Extremity Pain. Denies: Back pain Skin: Reports: Abscess. Denies: Wounds Neurological: Denies: Headache, Weakness, Numbness Physical Exam Vital Signs/Narrative: Vital Signs Temp Pulse Resp BP Pulse Ox 02/25/20 09:43 97.5 F L 83 16 137/81 H 97 Inital Vital Signs reviewed: Yes General: Well nourished, Well developed, No Acute Distress Head: Normocephalic, Atraumatic Eyes: Perrl, EOMI ENT: Moist mucous membranes, No rhinorrhea Neck: Supple, Nontender Cardiovascular: Regular rate, Regular rhythm, Murmur - Soft systolic Respiratory: No distress, CTA bilaterally, Chest nontender Abdomen: Soft, Nontender, Nondistended, Normal bowel sounds Back: Nontender, Normal Inspection Extremities: Nontender, No edema Skin: No rash, - - 5 cm pointing abscess medial left buttock without perianal involvement. There is a pinpoint area medially with purulent foul-smelling drainage. Surrounding cellulitis is limited to the abscess. The skin from the caudal aspect of the buttock down the left posterior thigh is all normal, nontender. Neurological: Alert, Oriented x3, Cranial nerves II-XII grossly intact, Normal Strength, Normal Sensation, Normal Gait Psychological: Normal affect, Normal Mood Diagnostic/Tx/Re-eval Laboratory Tests 02/25/20 02/25/20 02/25/20 Range/Units 13:55 10:59 10:59 WBC 8.6 (4.4-11.0) K/mm3 RBC 4.12 L (4.6-6.2) M/mm3 Hgb 14.1 (13.0-16.5) g/dL Hct 43.2 (40-54) % MCV 104.9 H (80-94) fL MCH 34.2 H (27.0-32.0) pg MCHC 32.6 (32-36) g/dL RDW Std Deviation 50.1 H (35.1-43.9) fl RDW Coeff of Hugo 12.9 (11.6-14.6) % Plt Count 156 (150-450) K/mm3 MPV 9.9 (6.2-12.0) fl Immature Gran % (Auto) 0.400 (0.0-0.9) % Neut % (Auto) 81.6 H (47-70) % Lymph % (Auto) 9.8 L (19-41) % Sawyer % (Auto) 7.0 (0-10) % Eos % (Auto) 0.8 (0-5) % Baso % (Auto) 0.4 (0-1) % Absolute Neuts (auto) 7.0 (2.0-7.7) X10^3/uL Absolute Lymphs (auto) 0.84 (0.83-4.51) X10^3/uL Nucleated RBC % 0 (0-5) % Sodium 138 (136-145) mmol/L Potassium 5.8 H 6.3 H* (3.5-5.1) mmol/L Chloride 113 H (98-107) mmol/L Carbon Dioxide 23.0 (21.0-32.0) mmol/L Anion Gap 2 L (5-15) BUN 35 H (7-18) mg/dL Creatinine 1.98 H (0.70-1.30) mg/dL Estim Creat Clear Calc 46.88 ml/min Est GFR (MDRD) Af Amer 44 L (>60) mL/min Est GFR (MDRD) Non-Af 36 L (>60) mL/min BUN/Creatinine Ratio 17.7 (10-20) RATIO Glucose 92 (74-106) mg/dL Calcium 9.0 (8.5-10.1) mg/dL - Rhythm Strip Rhythm Strip: Sinus Rhythm Rate: 65 Ectopy: None - EKG Initial EKG Interpretation: Paced - AV dual chamber pace/capture Prior: Unchanged - Medical Decision Making See the procedure note for abscess drainage, it was very productive yielding lots of purulent material. The 2 wounds were dressed with bacitracin he was able to sit afterwards comfortably. Given that his he has a heart valve and a history of a significant systemic infection, wound culture was sent, blood cultures were sent, he was given a dose of IV vancomycin in addition to starting him on Bactrim to cover MRSA which I think is the most likely offending organism given the appearance of the abscess in my judgment, and blood work was done. Incidentally, we found hyperkalemia at 6.3. After the vancomycin and IV fluids only, I repeated the potassium and it is 5.8, much lower. It is still abnormal. An EKG was obtained and shows AV sequential pacemaker function and capture, the P waves are peaked but this is common with pacing and it is unchanged from his old EKG. I gave him a dose of Kayexalate 15 g. Patient states that he forgot to tell us, he is supposed to be on sodium bicarbonate and Veltassa and has not been taking them since July. I discussed with renal on-call doctor covering for Dr. Ramirez, who agrees with this management and him following up as an outpatient. The patient confirms that he has both of these medications at home to start taking again. Discussed reasons to return, but he is well at discharge, not septic, and he is comfortable with this overall plan. Procedures Procedure(s): Complex I&D left buttock abscess --locally anesthetized with 5 cc 1% lidocaine after sterile prep and drape with chlorhexidine. Incised with a #10 blade medially, large amount of purulent material expressed, culture sent. Was able to deloculated into the other abscess cavity, as there appeared to be 2 discrete cavities communicating with each other. However was not able to pack the more lateral 1 from the medial incision so another incision was made over it, and they were both packed separately after irrigating. ED Disposition - Plan for ED Patient: Disposition: Home or Assisted Living Diagnosis: Cutaneous abscess of buttock, CRI (chronic renal insufficiency), Hyperkalemia Instructions: ED Hyperkalemia, ED Abscess Incision And Drainage, ED Staph Skin Infection, Possible MRSA Prescriptions: Sulfamethoxazole/Trimethoprim [Bactrim Ds Tablet] 1 ea PO BID #20 tab Transmission Status: Pending to [facility] Referrals: Tapan Cuellar DO [Primary Care Provider] - 3-5 Days if not improving Al Ramirez MD [STAFF PHYSICIAN] - 1-2 Weeks Additional Instructions: Make sure you take your sodium bicarbonate and Veltassa as prescribed as soon as you are able. Continue taking them.
[2020-02-25] MEDS: Lidocaine 1% (20 ml mdv) 20 ML Vial INFILT (11:19)
[2020-02-25] MEDS: Smz/Tmp Ds Tablet 1 TABLET PO (11:19)
[2020-02-25 11:30] LABS: Absolute Lymphocyte Count 0.84 X10^3/uL (0.83-4.51); Basophil# 0.03 X10^3/uL; Basophil% 0.4 % (0-1); Eosinophil# 0.07 X10^3/uL; Eosinophils% 0.8 % (0-5); Hematocrit 43.2 % (40-54); Hemoglobin 14.1 g/dL (13.0-16.5); Lymphocyte # 0.84 X10^3/ul (4.0); Lymphocyte % 9.8 % (19-41); Mean Corp Hgb Conc 32.6 g/dL (32-36); Mean Corpuscular Hgb 34.2 pg (27.0-32.0); Mean Corpuscular Volume 104.9 fL (80-94); Mean Platelet Vol. 9.9 fl (6.2-12.0); NRBC Flagged by Analyzer 0 % (0-5); Neutrophil # 6.98 X10^3/uL (2.7-7.7); Neutrophil % 81.6 % (47-70); Platelet Count 156 K/mm3 (150-450); RBC Distribution Width CV 12.9 % (11.6-14.6); RBC Distribution Width SD 50.1 fl (35.1-43.9); Red Blood Count 4.12 M/mm3 (4.6-6.2); White Blood Count 8.6 K/mm3 (4.4-11.0)
[2020-02-25 11:44] LABS: Anion Gap 2 (5-15); BUN 35 mg/dL (7-18); BUN/Creat Ratio 17.7 RATIO (10-20); Chloride 113 mmol/L (98-107); Creatinine, Serum 1.98 mg/dL (0.70-1.30); EST Glomerular Filtration Rate 36 mL/min (>60); Est Glom Filt Rate - Afr Amer 44 mL/min (>60); Estimated Creatinine Clearance 46.88 ml/min; Glucose 92 mg/dL (74-106); Potassium 6.3 mmol/L (3.5-5.1); Sodium Level 138 mmol/L (136-145)
--- NOTE | 2020-02-25 12:00 | EKG12_ITS ---
Test Reason : ABCESS Blood Pressure : / mmHG Vent. Rate : 064 BPM Atrial Rate : 064 BPM P-R Int : 162 ms QRS Dur : 190 ms QT Int : 484 ms P-R-T Axes : 056 268 090 degrees QTc Int : 499 ms Electronic Ventricular Pacemaker Abnormal ECG Confirmed by ROSARIO ZAMORA, JOIE ([id number]), technical editor DANETTE FRANCOIS ([id number]) on 02/27/2020 1:27:50 PM Referred By: BB Confirmed By:JOIE PONCE MD
[2020-02-25 14:08] LABS: Potassium 5.8 mmol/L (3.5-5.1)
[2020-02-25] MEDS: Sodium Polystyrene Sulfonate 15 GM/60 ML UDC PO (16:09)
[2020-02-25 16:12] VITALS: BP 147/88; PULSE 66; RESP 16; O2SAT 97
== END 2020-02-25 16:12 | disposition home or self-care (01) ==
PROVIDERS: Emergency Provider Emergency Medicine; PCP Family Medicine
DX: L02.31 Cutaneous abscess of buttock (principal); E87.5 Hyperkalemia; N18.9 Chronic kidney disease, unspecified; I25.10 Atherosclerotic heart disease of native coronary artery without angina pectoris; E78.5 Hyperlipidemia, unspecified; F17.200 Nicotine dependence, unspecified, uncomplicated; Z86.73 Personal history of transient ischemic attack (TIA), and cerebral infarction without residual deficits; Z79.02 Long term (current) use of antithrombotics/antiplatelets; Z79.899 Other long term (current) drug therapy
CPT/HCPCS: 10060; 80048; 84132; 85025; 87040; 87070; 87077; 87205; 93005; 96365; 96366; 99284; J7040; A4216

== ENCOUNTER → 2020-03-19 09:16 | Outpatient (CLI) | payer BC, SELFPAY ==
[2020-02-24 15:28] VITALS: BMI 24.7
[2020-02-25 09:43] VITALS: BMI 26.2
[2020-03-19 09:46] LABS: Hematocrit 42.1 % (40-54); Hemoglobin 14.1 g/dL (13.0-16.5); Mean Corp Hgb Conc 33.5 g/dL (32-36); Mean Corpuscular Hgb 35.5 pg (27.0-32.0); Mean Platelet Vol. 9.8 fl (6.2-12.0); Platelet Count 110 K/mm3 (150-450); RBC Distribution Width CV 13.4 % (11.6-14.6); RBC Distribution Width SD 51.3 fl (35.1-43.9); Red Blood Count 3.97 M/mm3 (4.6-6.2); White Blood Count 5.9 K/mm3 (4.4-11.0)
[2020-03-19 09:55] LABS: Protein, Urine (Random) 132.1 mg/dL (<11.9); Protein:Creat Ratio 1876 mg/g CRE (0-200)
[2020-03-19 10:24] LABS: AST(SGOT) 18 U/L (15-37); Alanine Aminotransfer ALT/SGPT 16 U/L (16-61); Albumin, Serum 3.2 g/dL (3.2-5.0); Alkaline Phosphatase 169 U/L (45-117); Anion Gap 4 (5-15); BUN 28 mg/dL (7-18); Bilirubin, Direct 0.18 mg/dL (0.00-0.30); Calcium,Total 8.6 mg/dL (8.5-10.1); Chloride 112 mmol/L (98-107); Cholesterol 101 mg/dL (200); Creatinine, Serum 1.75 mg/dL (0.70-1.30); EST Glomerular Filtration Rate 42 mL/min (>60); Est Glom Filt Rate - Afr Amer 51 mL/min (>60); Ferritin 78 ng/mL (26-388); Globulin 4.3 g/dL (2.2-4.2); Glucose 87 mg/dL (74-106); High Density Lipoprotein 40 mg/dL; Iron 60 ug/dL (65-175); Phosphorus 3.5 mg/dL (2.5-4.9); Potassium 4.9 mmol/L (3.5-5.1); Protein, Total 7.5 g/dL (6.4-8.2); Sodium Level 141 mmol/L (136-145); T4 Free Direct 1.14 ng/dL (0.76-1.46); Thyroid Stim Hormone (TSH) 0.37 uIU/mL (0.358-3.74); Triglycerides 154 mg/dL; Very Low Density Lipoprotein 31 mg/dL (5-40)
[2020-03-19 10:34] LABS: PTHIN 140.7 pg/mL (18.4-80.1)
[2020-03-19 11:15] LABS: Vitamin D,25 Hydroxy 30.8 ng/mL
== END ==
PROVIDERS: Nurse Practitioner Family; PCP Family Medicine; Referring Provider Internal Medicine Nephrology; Visit Provider Family Medicine
DX: E78.00 Pure hypercholesterolemia, unspecified (principal); E78.5 Hyperlipidemia, unspecified; E03.9 Hypothyroidism, unspecified; D50.9 Iron deficiency anemia, unspecified; N18.4 Chronic kidney disease, stage 4 (severe); D63.1 Anemia in chronic kidney disease
CPT/HCPCS: 36415; 80048; 80061; 80076; 82306; 82570; 82728; 83540; 83970; 84100; 84156; 84439; 84443; 85027

== ENCOUNTER → 2020-04-16 12:34 | Outpatient (CLI) | payer BC, SELFPAY | PROVIDERS: PCP Family Medicine; Visit Provider Family Medicine | DX: L02.31 Cutaneous abscess of buttock (principal) | CPT/HCPCS: 36415; 87070; 87077; 87205 ==

== ENCOUNTER 2020-05-31 08:28 | Outpatient (RCR) | payer MEDICARE, SELFPAY ==
[2020-04-17 13:49] VITALS: BMI 26.1
[2020-05-31] MEDS: COVID-19 VACC, MRNA(PFIZER)/PF 30 MCG/0.3 ML SYRINGE IM (14:26)
[2020-06-21] MEDS: COVID-19 VACC, MRNA(PFIZER)/PF 30 MCG/0.3 ML SYRINGE IM (14:15)
== END 2020-08-28 23:59 ==
LOC: IMMUN 08:28
PROVIDERS: PCP Family Medicine; Visit Provider Family Medicine
DX: Z23 Encounter for immunization (principal)
CPT/HCPCS: 0001A; 0002A; 91300

== ENCOUNTER → 2020-10-03 08:01 | Outpatient (CLI) | payer MEDICARE, SELFPAY ==
[2020-08-07 08:27] VITALS: BMI 26.8
[2020-10-03 09:10] LABS: Absolute Lymphocyte Count 1.81 X10^3/uL (0.83-4.51); Absolute Neutrophil Count 3.4 X10^3/uL (2.0-7.7); Basophil# 0.05 X10^3/uL; Basophil% 0.9 % (0-1); Eosinophils% 1.7 % (0-5); Hematocrit 47.1 % (40-54); Hemoglobin 15.4 g/dL (13.0-16.5); Lymphocyte # 1.81 X10^3/ul (0.83-4.51); Mean Corp Hgb Conc 32.7 g/dL (32-36); Mean Corpuscular Hgb 34.4 pg (27.0-32.0); Mean Corpuscular Volume 105.1 fL (80-94); Mean Platelet Vol. 9.8 fl (6.2-12.0); Monocyte# 0.43 X10^3/uL; Monocyte% 7.4 % (0-10); NRBC Flagged by Analyzer 0 % (0-5); Neutrophil # 3.44 X10^3/uL (2.7-7.7); Neutrophil % 58.8 % (47-70); Platelet Count 130 K/mm3 (150-450); RBC Distribution Width CV 12.6 % (11.6-14.6); RBC Distribution Width SD 49.1 fl (35.1-43.9); Red Blood Count 4.48 M/mm3 (4.6-6.2); White Blood Count 5.8 K/mm3 (4.4-11.0)
[2020-10-03 09:22] LABS: Protein, Urine (Random) 228.9 mg/dL (<11.9); Protein:Creat Ratio 3913 mg/g CRE (0-200)
[2020-10-03 09:34] LABS: PTHIN 159.9 pg/mL (18.4-80.1)
[2020-10-03 09:38] LABS: Vitamin D,25 Hydroxy 38.7 ng/mL
[2020-10-03 09:42] LABS: ALB/GLOB Ratio 0.8 RATIO (0.9-2.4); AST(SGOT) 15 U/L (15-37); Alanine Aminotransfer ALT/SGPT 16 U/L (16-61); Albumin, Serum 3.2 g/dL (3.2-5.0); Alkaline Phosphatase 160 U/L (45-117); Anion Gap 2 (5-15); BUN 35 mg/dL (7-18); BUN/Creat Ratio 17.4 RATIO (10-20); Bilirubin, Direct 0.21 mg/dL (0.00-0.30); Calcium,Total 8.7 mg/dL (8.5-10.1); Chloride 110 mmol/L (98-107); Cholesterol 98 mg/dL (200); Creatinine, Serum 2.01 mg/dL (0.70-1.30); EST Glomerular Filtration Rate 36 mL/min (>60); Est Glom Filt Rate - Afr Amer 43 mL/min (>60); Ferritin 48 ng/mL (26-388); Glucose 82 mg/dL (74-106); High Density Lipoprotein 41 mg/dL; Iron 111 ug/dL (65-175); Potassium 4.8 mmol/L (3.5-5.1); Protein, Total 7.2 g/dL (6.4-8.2); Sodium Level 139 mmol/L (136-145); Thyroid Stim Hormone (TSH) 4.12 uIU/mL (0.358-3.74); Triglycerides 133 mg/dL; Very Low Density Lipoprotein 27 mg/dL (5-40)
[2020-10-05 16:09] LABS: Albumin 3.4 g/dL (2.9-4.4); Alpha-1-Globulins 0.3 g/dL (0.0-0.4); Alpha-2-Globulins 0.9 g/dL (0.4-1.0); Free Kappa Light Chains 141.2 mg/L (3.3-19.4); Free Lambda Light Chains 87.2 mg/L (5.7-26.3); Gamma Globulin 1.3 g/dL (0.4-1.8); Immunoglobulin A 329 mg/dL (61-437); Immunoglobulin G 1375 mg/dL (603-1613); PROEL- TOTAL PROTEIN 6.9 g/dL (6.0-8.5)
[2020-10-06 11:53] LABS: Immunoglobulin M 24 mg/dL (20-172)
== END ==
PROVIDERS: Internal Medicine Cardiovascular Disease; Nurse Practitioner Family; PCP Family Medicine; Referring Provider Family Medicine; Visit Provider Family Medicine
DX: E78.5 Hyperlipidemia, unspecified (principal); I25.10 Atherosclerotic heart disease of native coronary artery without angina pectoris; G62.9 Polyneuropathy, unspecified; E03.9 Hypothyroidism, unspecified; D64.9 Anemia, unspecified; N18.4 Chronic kidney disease, stage 4 (severe)
CPT/HCPCS: 36415; 80053; 80061; 82248; 82306; 82570; 82728; 82784; 83540; 83883; 83970; 84156; 84165; 84443; 85025; 86334; 86335

== ENCOUNTER → 2020-11-20 07:48 | Outpatient (CLI) | payer MEDICARE, SELFPAY ==
[2020-08-07 08:27] VITALS: BMI 26.8
--- NOTE | 2020-11-20 07:49 | ECHOD_ITS ---
Reason For Study: VALVE REPL Procedure This was a 2D Doppler, Color Flow transthoracic echocardiogram. The study was technically difficult. Exam performed in department. Left Ventricle Normal LV size. Moderate concentric left ventricular hypertrophy. Left ventricular systolic function is normal. The estimated ejection fraction is 60 %. Apical wall motion abnormality may reflect pacemaker activation. Right Ventricle Normal RV size. Normal systolic function. Atria The left atrium is moderately enlarged. The right atrium is mildly enlarged. No doppler evidence for ASD. Mitral Valve There is mild mitral annular calcification. Extension of the mitral annular calcification onto the mitral valve leaflet. Mild (1+) mitral valve insufficiency. Tricuspid Valve Unable to estimate RV systolic pressure/pulmonary artery pressure due to technically difficult study. Status post tricuspid valve repair. Mild transvalvular insufficiency of the tricuspid valve. Aortic Valve The aortic valve is not well visualized, however, based upon the 2D echocardiographic images obtained there appears to be a stable bioprosthetic aortic valve apparatus in the place. Mild transvalvular insufficiency of the aortic valve. Pulmonic Valve The pulmonic valve is not well visualized. Great Vessels The aortic root is not well visualized. Pericardium/Pleural No pericardial effusion. MMode/2D Measurements & Calculations LVIDd: 4.1 cm IVSd: 1.5 cm LAV(MOD-bp): 93.0 ml LVIDs: 2.9 cm LVPWd: 1.6 cm LAV(MOD-bp) Indexed: 40.7 ml/m2 RVDd: 3.7 cm FS: 30.8 % LAV(MOD-sp2): 78.6 ml LAV(MOD-sp4): 90.9 ml LA dimension(2D): 4.2 cm LA A4 area: 28.8 cm2 RA A4 area: 20.3 cm2 Time Measurements MV dec time: 0.29 sec Doppler Measurements & Calculations MV E max duran: 115.6 cm/sec MV V2 max: 111.1 cm/sec Ao V2 max: 171.3 cm/sec MV A max duran: 102.4 cm/sec MV max P.9 mmHg Ao max P.8 mmHg MV E/A: 1.1 MV V2 mean: 67.9 cm/sec Ao V2 mean: 123.9 cm/sec MV mean P.1 mmHg Ao mean P.7 mmHg MV V2 VTI: 35.2 cm Ao V2 VTI: 34.7 cm AI max duran: 511.2 cm/sec PA V2 max: 79.7 cm/sec MV P1/2t-pr_phl: 132.5 msec AI max P.5 mmHg AI dec slope: 241.0 cm/sec2 AI P1/2t: 621.2 msec ECHO/Echo Complete Interpretation Summary The study was technically difficult. Left ventricular systolic function is normal. The estimated ejection fraction is 60 %. Moderate concentric left ventricular hypertrophy. Apical wall motion abnormality may reflect pacemaker activation. The left atrium is moderately enlarged. The right atrium is mildly enlarged. There is mild mitral annular calcification. Extension of the mitral annular calcification onto the mitral valve leaflet. Mild (1+) mitral valve insufficiency. Status post tricuspid valve repair. Mild transvalvular insufficiency of the tricuspid valve. The aortic valve is not well visualized, however, based upon the 2D echocardiog raphic images obtained there appears to be a stable bioprosthetic aortic valve apparatus in t he place. Mild transvalvular insufficiency of the aortic valve. Unable to estimate RV systolic pressure/pulmonary artery pressure due to techni koffi difficult study. Transmitral diastolic flow velocities suggest diastolic dysfunction (pseudonorm al pattern). Ordering Physician: Ambrocio Whitaker Referring Physician: GRACY SHIN Performed By: Emma Sweet, RDCS, RVT
== END ==
PROVIDERS: PCP Family Medicine; Referring Provider Internal Medicine Cardiovascular Disease; Visit Provider Internal Medicine Cardiovascular Disease
DX: I25.10 Atherosclerotic heart disease of native coronary artery without angina pectoris (principal); I48.0 Paroxysmal atrial fibrillation; Z95.3 Presence of xenogenic heart valve; Z98.890 Other specified postprocedural states
CPT/HCPCS: 93306

== ENCOUNTER → 2021-01-09 10:13 | Outpatient (CLI) | payer MEDICARE, SELFPAY ==
[2021-01-09 12:03] LABS: Protein, Urine (Random) 134.4 mg/dL (<11.9); Protein:Creat Ratio 2030 mg/g CRE (0-200)
[2021-01-09 12:09] LABS: Hematocrit 46.4 % (40-54); Hemoglobin 14.8 g/dL (13.0-16.5); Mean Corp Hgb Conc 31.9 g/dL (32-36); Mean Corpuscular Hgb 33.9 pg (27.0-32.0); Mean Corpuscular Volume 106.2 fL (80-94); Mean Platelet Vol. 10.4 fl (6.2-12.0); Platelet Count 147 K/mm3 (150-450); RBC Distribution Width CV 13.1 % (11.6-14.6); RBC Distribution Width SD 52.2 fl (35.1-43.9); Red Blood Count 4.37 M/mm3 (4.6-6.2)
[2021-01-09 12:50] LABS: PTHIN 151.8 pg/mL (18.4-80.1)
[2021-01-09 13:22] LABS: Albumin, Serum 3.2 g/dL (3.2-5.0); BUN 47 mg/dL (7-18); BUN/Creat Ratio 22.4 RATIO (10-20); Calcium,Total 8.9 mg/dL (8.5-10.1); Chloride 113 mmol/L (98-107); EST Glomerular Filtration Rate 34 mL/min (>60); Est Glom Filt Rate - Afr Amer 41 mL/min (>60); Glucose 88 mg/dL (74-106); Phosphorus 3.9 mg/dL (2.5-4.9); Potassium 6.3 mmol/L (3.5-5.1); Sodium Level 138 mmol/L (136-145)
[2021-01-10 15:19] LABS: Complement C3 107 mg/dL (82-167)
== END ==
PROVIDERS: PCP Family Medicine; Referring Provider Internal Medicine Nephrology; Visit Provider Internal Medicine Nephrology
DX: N18.4 Chronic kidney disease, stage 4 (severe) (principal)
CPT/HCPCS: 36415; 80069; 82306; 82570; 83970; 84156; 85027; 86160

== ENCOUNTER → 2021-01-10 11:26 | Outpatient (CLI) | payer MEDICARE, SELFPAY ==
[2021-01-10 13:15] LABS: Anion Gap 2 (5-15); BUN 44 mg/dL (7-18); BUN/Creat Ratio 21.6 RATIO (10-20); Calcium,Total 8.8 mg/dL (8.5-10.1); Chloride 114 mmol/L (98-107); Creatinine, Serum 2.04 mg/dL (0.70-1.30); EST Glomerular Filtration Rate 35 mL/min (>60); Est Glom Filt Rate - Afr Amer 42 mL/min (>60); Glucose 89 mg/dL (74-106); Potassium 6.4 mmol/L (3.5-5.1); Sodium Level 140 mmol/L (136-145)
== END ==
PROVIDERS: PCP Family Medicine; Referring Provider Internal Medicine Nephrology; Visit Provider Internal Medicine Nephrology
DX: E87.5 Hyperkalemia (principal)
CPT/HCPCS: 36415; 80048

== ENCOUNTER → 2021-01-14 12:40 | Outpatient (CLI) | payer MEDICARE, SELFPAY ==
[2021-01-14 14:12] LABS: Anion Gap 5 (5-15); BUN 37 mg/dL (7-18); BUN/Creat Ratio 19.7 RATIO (10-20); Calcium,Total 9.1 mg/dL (8.5-10.1); Chloride 114 mmol/L (98-107); Creatinine, Serum 1.88 mg/dL (0.70-1.30); EST Glomerular Filtration Rate 39 mL/min (>60); Est Glom Filt Rate - Afr Amer 47 mL/min (>60); Glucose 93 mg/dL (74-106); Potassium 5.4 mmol/L (3.5-5.1); Sodium Level 139 mmol/L (136-145)
== END ==
PROVIDERS: PCP Family Medicine; Visit Provider Internal Medicine Nephrology
DX: E87.5 Hyperkalemia (principal)
CPT/HCPCS: 36415; 80048

== ENCOUNTER → 2021-02-25 08:49 | Outpatient (CLI) | payer MEDICARE, SELFPAY ==
--- NOTE | 2021-02-25 08:50 | CDU_ITS ---
Reason For Study: History of stroke Rt. Velocities/BP Lt. Velocities/BP Prox CCA 55.2/12.1 cm/sec. Prox CCA 62.9/16.8 cm/sec. Mid CCA 45.4/14.6 cm/sec. Mid CCA 48.7/14.6 cm/sec. Dist CCA 35.5/13.5 cm/sec. Dist CCA 42.8/14.5 cm/sec. Prox ICA 31.7/11.6 cm/sec. Prox ICA 38.1/14.5 cm/sec. Mid ICA 60.5/24.7 cm/sec. Mid ICA 47.5/17.3 cm/sec. Dist ICA 78.7/38.1 cm/sec. Dist ICA 61.7/25.8 cm/sec. Rt. ICA/CCA = 1.7. Lt. ICA/CCA = 1.3. Prox ECA 50/10.7 cm/sec. Prox ECA 55.1/11.6 cm/sec. Rt. Vert. 67.4/30 cm/sec. Lt. Vert. 20.9 cm/sec. Right Extracranial There is intimal thickening but no significant atherosclerotic plaque noted in the right common carotid artery. There is heterogeneous, irregular atherosclerotic plaque noted in the right internal carotid artery. There is intimal thickening but no significant atherosclerotic plaque noted in the right external carotid artery. Antegrade flow is noted in the right vertebral artery. Left Extracranial There is intimal thickening but no significant atherosclerotic plaque noted in the left common carotid artery. There is heterogeneous, irregular atherosclerotic plaque noted in the left internal carotid artery. There is homogeneous, smooth atherosclerotic plaque noted in the left external carotid artery. Antegrade flow is noted in the left vertebral artery. Procedure Carotid Duplex [id number]. This is a Carotid Duplex examination using B-mode, color flow and specral Doppler. Exam performed in department. VL/Carotid Duplex Ultrasound Interpretation Summary Minimal calcific plaque at the proximal right internal carotid artery with less than 50% stenosis Less than 50% stenosis right external carotid artery Irregular calcific plaque with shadowing at the left proximal internal carotid artery with less than 50% stenosis Less than 50% stenosis left external carotid artery Patent and antegrade right vertebral Patent and antegrade left vertebral although with diminished velocity. No clinically significant change from the previous carotid duplex exam of May 25, 2019 Ordering Physician: Sherlyn Graves Referring Physician: Tapan Cuellar Performed By: Kathleen Lao RVT
== END ==
LOC: CVS 08:49
PROVIDERS: PCP Family Medicine; Referring Provider Nurse Practitioner Family; Visit Provider Nurse Practitioner Family
DX: I65.23 Occlusion and stenosis of bilateral carotid arteries (principal); Z86.73 Personal history of transient ischemic attack (TIA), and cerebral infarction without residual deficits
CPT/HCPCS: 93880

== ENCOUNTER 2021-05-20 11:16 | Outpatient (CLI) | payer MEDICARE, OTHER, SELFPAY ==
[2021-05-20 13:16] LABS: Protein, Urine (Random) 248.2 mg/dL (<11.9); Protein:Creat Ratio 4464 mg/g CRE (0-200)
[2021-05-20 13:32] LABS: AST(SGOT) 15 U/L (15-37); Alanine Aminotransfer ALT/SGPT 16 U/L (16-61); Albumin, Serum 2.9 g/dL (3.2-5.0); Alkaline Phosphatase 136 U/L (45-117); Anion Gap 4 (5-15); BUN 31 mg/dL (7-18); BUN/Creat Ratio 16.8 RATIO (10-20); Bilirubin, Direct 0.14 mg/dL (0.00-0.30); Calcium,Total 8.3 mg/dL (8.5-10.1); Chloride 110 mmol/L (98-107); Cholesterol 87 mg/dL (200); Creatinine, Serum 1.84 mg/dL (0.70-1.30); EST Glomerular Filtration Rate 39 mL/min (>60); Est Glom Filt Rate - Afr Amer 48 mL/min (>60); Ferritin 40 ng/mL (26-388); Globulin 4.2 g/dL (2.2-4.2); Glucose 86 mg/dL (74-106); High Density Lipoprotein 42 mg/dL; Iron 96 ug/dL (65-175); Protein, Total 7.1 g/dL (6.4-8.2); Sodium Level 140 mmol/L (136-145); T4 Free Direct 1.39 ng/dL (0.76-1.46); Thyroid Stim Hormone (TSH) 0.31 uIU/mL (0.358-3.74); Triglycerides 103 mg/dL; Very Low Density Lipoprotein 21 mg/dL (5-40)
== END 2021-05-20 23:59 | disposition home or self-care (01) ==
LOC: LAB 11:19
PROVIDERS: Internal Medicine Cardiovascular Disease; PCP Family Medicine; Referring Provider Family Medicine; Visit Provider Family Medicine
DX: E03.9 Hypothyroidism, unspecified (principal); D50.9 Iron deficiency anemia, unspecified
CPT/HCPCS: 80048; 80061; 80076; 82570; 82728; 83540; 84156; 84439; 84443

== ENCOUNTER → 2021-10-09 | Outpatient (CLI) | payer MEDICARE, OTHER, SELFPAY ==
[2021-10-09 10:43] LABS: Hematocrit 42.9 % (40-54); Hemoglobin 14.1 g/dL (13.0-16.5); Mean Corp Hgb Conc 32.9 g/dL (32-36); Mean Corpuscular Hgb 33.9 pg (27.0-32.0); Mean Corpuscular Volume 103.1 fL (80-94); Mean Platelet Vol. 9.6 fl (6.2-12.0); Platelet Count 137 K/mm3 (150-450); RBC Distribution Width CV 13.7 % (11.6-14.6); RBC Distribution Width SD 52.1 fl (35.1-43.9); Red Blood Count 4.16 M/mm3 (4.6-6.2); White Blood Count 6.1 K/mm3 (4.4-11.0)
[2021-10-09 11:10] LABS: Protein, Urine (Random) 133.6 mg/dL (<11.9); Protein:Creat Ratio 2559 mg/g CRE (0-200)
[2021-10-09 11:13] LABS: PTHIN 198.9 pg/mL (18.4-80.1)
[2021-10-09 11:17] LABS: Vitamin D,25 Hydroxy 47.2 ng/mL
[2021-10-09 11:24] LABS: BUN 37 mg/dL (7-18); BUN/Creat Ratio 15.9 RATIO (10-20); Calcium,Total 8.9 mg/dL (8.5-10.1); Chloride 111 mmol/L (98-107); Creatinine, Serum 2.33 mg/dL (0.70-1.30); EST Glomerular Filtration Rate 30 mL/min (>60); Est Glom Filt Rate - Afr Amer 36 mL/min (>60); Glucose 97 mg/dL (74-106); Potassium 4.6 mmol/L (3.5-5.1); Sodium Level 140 mmol/L (136-145); T4 Free Direct 1.17 ng/dL (0.76-1.46); Thyroid Stim Hormone (TSH) 1.35 uIU/mL (0.358-3.74)
== END | disposition home or self-care (01) ==
LOC: LAB 10:01
PROVIDERS: PCP Family Medicine; Referring Provider Family Medicine; Visit Provider Family Medicine
DX: N18.4 Chronic kidney disease, stage 4 (severe) (principal); E03.9 Hypothyroidism, unspecified
CPT/HCPCS: 36415; 80069; 82306; 82570; 83970; 84156; 84439; 84443; 85027

== ENCOUNTER → 2021-10-09 | Outpatient (CLI) | payer MEDICARE, OTHER, SELFPAY ==
--- NOTE | 2021-10-09 15:14 | VDLE_ITS ---
RIGHT LEFT CFV is compressible, spontaneous, phasic, GSV is normal. competent and demonstrates normal CFV is compressible, spontaneous, phasic, augmentation. competent, and demonstrates normal Procedure augmentation. Exam performed in department. FV is compressible, spontaneous, phasic, This is a venous duplex using B-mode, color competent and demonstrates normal flow and spectral Doppler. augmentation. A preliminary report was called and/or faxed POP V is compressible, spontaneous, phasic, to Lino DANIEL. competent and demonstrates normal augmentation. T/P Trunk is compressible. PTV is compressible. LT PerV is compressible. A pulsatile heterogenous structure noted in Lt. Groin. The structure measures 1.07cm x 1.52cm. VL/Venous Duplex US, Unilateral Interpretation Summary Deep veins of the left lower extremity are patent and compressible segmentally. There is no evidence of left lower extremity deep vein thrombosis. Valvular competence appears intac t within the proximal deep venous system on the left . The left great saphenous vein appears patent a nd compressible segmentally. A vascularized, heterogeneous structure is noted in the left groin , measuring 1.07 cm x 1.52 cm. This probably represents a lymph node. Clinical correlation is advised . Ordering Physician: Lino Liu Referring Physician: Lino Liu Performed By:
== END | disposition home or self-care (01) ==
PROVIDERS: PCP Family Medicine; Referring Provider Physician Assistant; Visit Provider Physician Assistant
DX: R60.0 Localized edema (principal); N18.4 Chronic kidney disease, stage 4 (severe); E03.9 Hypothyroidism, unspecified
CPT/HCPCS: 36415; 80069; 82306; 82570; 83970; 84156; 84439; 84443; 85027; 93971

== ENCOUNTER → 2021-11-20 | Outpatient (CLI) | payer MEDICARE, OTHER, SELFPAY ==
[2021-11-20 09:55] LABS: Hematocrit 38.2 % (40-54); Hemoglobin 12.7 g/dL (13.0-16.5); Mean Corp Hgb Conc 33.2 g/dL (32-36); Mean Corpuscular Hgb 35.6 pg (27.0-32.0); Mean Platelet Vol. 9.7 fl (6.2-12.0); Platelet Count 113 K/mm3 (150-450); RBC Distribution Width CV 15.4 % (11.6-14.6); RBC Distribution Width SD 60.7 fl (35.1-43.9); Red Blood Count 3.57 M/mm3 (4.6-6.2); White Blood Count 3.3 K/mm3 (4.4-11.0)
[2021-11-20 10:09] LABS: Protein:Creat Ratio 1884 mg/g CRE (0-200)
[2021-11-20 10:25] LABS: Vitamin D,25 Hydroxy 63.6 ng/mL
[2021-11-20 10:30] LABS: AST(SGOT) 25 U/L (15-37); Alanine Aminotransfer ALT/SGPT 21 U/L (16-61); Albumin, Serum 2.8 g/dL (3.2-5.0); Alkaline Phosphatase 127 U/L (45-117); Anion Gap 2 (5-15); BUN 43 mg/dL (7-18); BUN/Creat Ratio 18.9 RATIO (10-20); Calcium,Total 8.3 mg/dL (8.5-10.1); Chloride 117 mmol/L (98-107); Cholesterol 60 mg/dL (200); Creatinine, Serum 2.28 mg/dL (0.70-1.30); EST Glomerular Filtration Rate 31 mL/min (>60); Est Glom Filt Rate - Afr Amer 37 mL/min (>60); Glucose 89 mg/dL (74-106); High Density Lipoprotein 34 mg/dL; Phosphorus 3.4 mg/dL (2.5-4.9); Potassium 4.9 mmol/L (3.5-5.1); Protein, Total 6.8 g/dL (6.4-8.2); Sodium Level 141 mmol/L (136-145); Triglycerides 83 mg/dL; Very Low Density Lipoprotein 17 mg/dL (5-40)
[2021-11-20 12:19] LABS: PTHIN 120.9 pg/mL (18.4-80.1)
== END | disposition home or self-care (01) ==
LOC: LAB 08:32
PROVIDERS: PCP Family Medicine; Referring Provider Internal Medicine Cardiovascular Disease; Visit Provider Internal Medicine Cardiovascular Disease
DX: N18.4 Chronic kidney disease, stage 4 (severe) (principal)
CPT/HCPCS: 36415; 80048; 80061; 80076; 82306; 82570; 83970; 84100; 84156; 85027

== ENCOUNTER → 2022-02-19 | Outpatient (CLI) | payer MEDICARE, OTHER, SELFPAY ==
[2022-02-19 10:27] LABS: Absolute Lymphocyte Count 1.43 X10^3/uL (0.83-4.51); Absolute Neutrophil Count 3.2 X10^3/uL (2.0-7.7); Basophil# 0.04 X10^3/uL; Basophil% 0.8 % (0-1); Eosinophil# 0.09 X10^3/uL; Eosinophils% 1.7 % (0-5); Hematocrit 40.1 % (40-54); Hemoglobin 12.8 g/dL (13.0-16.5); Lymphocyte # 1.43 X10^3/ul (0.83-4.51); Lymphocyte % 27.1 % (19-41); Mean Corp Hgb Conc 31.9 g/dL (32-36); Mean Corpuscular Hgb 34.8 pg (27.0-32.0); Mean Platelet Vol. 9.9 fl (6.2-12.0); Monocyte# 0.54 X10^3/uL; Monocyte% 10.2 % (0-10); NRBC Flagged by Analyzer 0 % (0-5); Neutrophil # 3.17 X10^3/uL (2.7-7.7); Platelet Count 130 K/mm3 (150-450); RBC Distribution Width CV 13.7 % (11.6-14.6); RBC Distribution Width SD 55.6 fl (35.1-43.9); Red Blood Count 3.68 M/mm3 (4.6-6.2); White Blood Count 5.3 K/mm3 (4.4-11.0)
== END | disposition home or self-care (01) ==
LOC: LAB 09:15
PROVIDERS: PCP Family Medicine; Visit Provider Physician Assistant Medical
DX: E78.5 Hyperlipidemia, unspecified (principal)
CPT/HCPCS: 36415; 85025

== ENCOUNTER → 2022-05-23 | Outpatient (CLI) | payer MEDICARE, OTHER, SELFPAY ==
[2022-05-23 09:50] LABS: Absolute Lymphocyte Count 1.04 X10^3/uL (0.83-4.51); Absolute Neutrophil Count 4.4 X10^3/uL (2.0-7.7); Basophil# 0.05 X10^3/uL; Basophil% 0.8 % (0-1); Eosinophil# 0.07 X10^3/uL; Eosinophils% 1.2 % (0-5); Hematocrit 38.7 % (40-54); Hemoglobin 12.1 g/dL (13.0-16.5); Lymphocyte # 1.04 X10^3/ul (0.83-4.51); Lymphocyte % 17.2 % (19-41); Mean Corp Hgb Conc 31.3 g/dL (32-36); Mean Corpuscular Hgb 32.9 pg (27.0-32.0); Mean Corpuscular Volume 105.2 fL (80-94); Mean Platelet Vol. 9.8 fl (6.2-12.0); Monocyte% 8.3 % (0-10); NRBC Flagged by Analyzer 0 % (0-5); Neutrophil # 4.38 X10^3/uL (2.7-7.7); Neutrophil % 72.2 % (47-70); Platelet Count 139 K/mm3 (150-450); RBC Distribution Width CV 13.8 % (11.6-14.6); RBC Distribution Width SD 52.8 fl (35.1-43.9); Red Blood Count 3.68 M/mm3 (4.6-6.2); White Blood Count 6.1 K/mm3 (4.4-11.0)
[2022-05-23 10:00] LABS: Protein, Urine (Random) 206.1 mg/dL (<11.9); Protein:Creat Ratio 5855 mg/g CRE (0-200)
[2022-05-23 10:21] LABS: PTHIN 150.3 pg/mL (18.4-80.1)
[2022-05-23 10:26] LABS: Vitamin D,25 Hydroxy 44.3 ng/mL
[2022-05-23 10:29] LABS: ALB/GLOB Ratio 0.7 RATIO (0.9-2.4); AST(SGOT) 17 U/L (15-37); Alanine Aminotransfer ALT/SGPT 16 U/L (16-61); Alkaline Phosphatase 142 U/L (45-117); Anion Gap 8 (5-15); BUN 34 mg/dL (7-18); Bilirubin, Direct 0.26 mg/dL (0.00-0.30); Chloride 106 mmol/L (98-107); Cholesterol 79 mg/dL (200); Creatinine, Serum 1.79 mg/dL (0.70-1.30); EST Glomerular Filtration Rate 41 mL/min (>60); Est Glom Filt Rate - Afr Amer 49 mL/min (>60); Ferritin 61 ng/mL (26-388); Globulin 4.5 g/dL (2.2-4.2); Glucose 104 mg/dL (74-106); High Density Lipoprotein 43 mg/dL; Iron 63 ug/dL (65-175); Phosphorus 3.4 mg/dL (2.5-4.9); Protein, Total 7.5 g/dL (6.4-8.2); Sodium Level 140 mmol/L (136-145); Thyroid Stim Hormone (TSH) 0.76 uIU/mL (0.358-3.74); Triglycerides 87 mg/dL; Very Low Density Lipoprotein 17 mg/dL (5-40)
== END | disposition home or self-care (01) ==
PROVIDERS: Internal Medicine Cardiovascular Disease; PCP Family Medicine; Referring Provider Internal Medicine Nephrology; Visit Provider Family Medicine
DX: D50.9 Iron deficiency anemia, unspecified (principal); N18.4 Chronic kidney disease, stage 4 (severe); E03.9 Hypothyroidism, unspecified; E78.00 Pure hypercholesterolemia, unspecified
CPT/HCPCS: 36415; 80053; 80061; 82248; 82306; 82570; 82728; 83540; 83970; 84100; 84156; 84443; 85025

== ENCOUNTER 2022-08-06 12:28 | Emergency (ER) | payer MEDICARE, OTHER, SELFPAY ==
[2022-08-06 12:29] VITALS: BP 141/94; PULSE 79; RESP 16; TEMP 36.4; O2SAT 100
--- NOTE | 2022-08-06 12:51 | EX.ED.UPPERE ---
HPI History of Present Illness HPI Narrative: Left hand injury, specifically left index finger and small finger, were caught between a tractor trailer when they were loading it. Complaining of a laceration of the left index finger. Patient is right-hand dominant. Unsure of his last tetanus shot. This is not Worker's Comp. He was helping a friend at his home. It occurred about an hour ago. Chief Complaint: Laceration Informant: patient Occured/Mechanism Mechanism/Context: Yes injury and Yes blunt trauma Onset/Context/Timing Onset: Today Context: Sudden Onset Timing: Continuous Quality of Pain: Dull and Aching Current Severity: Mild Maximum Severity: Mild Associated Symptoms Associated Symptoms: Negative for Parasthesia, Weakness or Loss of Funtion Narrative Narrative: 67-year-old male was helping a friend they were unloading a tractor from a trailer in his left hand got smashed between the tractor bucket and the trailer. Complaining of a laceration and discomfort to left index finger and small finger. This occurred about an hour ago. He is unsure of his last tetanus shot. Believes it may be greater than 10 years. It will be updated. Tetanus Immunization: Unknown Prior similar symptoms: No Recent Illness/Hospitalization: No PFSH PFSH Medical History Abnormal EKG Acute bronchitis, unspecified Acute CVA (cerebrovascular accident) (10/27/17) Acute stomach ulcer Anemia, iron deficiency Aortic stenosis Aortic valve endocarditis (~12/2017) Atherosclerotic heart disease of elem coronary artery without angina pectoris Atrial fibrillation Atrioventricular block, type I Bruit of left carotid artery Carpal tunnel syndrome Edema of left lower extremity History of stroke HTN (hypertension) Hyperlipidemia Hypothyroidism Kidney disease Kidney failure 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 ligation alf current use of 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 Mild atherosclerosis of both carotid arteries Mitral valve insufficiency and aortic valve insufficiency Nonrheumatic tricuspid valve regurgitation PAF (paroxysmal atrial fibrillation) Premature ventricular contraction Presence of biventricular cardiac pacemaker Presence of permanent cardiac pacemaker (~01/19/18) Retinal embolus Sick sinus syndrome Sinus bradycardia SOB (shortness of breath) Stroke Tobacco abuse Ulcer Ventricular hypertrophy Vitamin deficiency Home Medications cyanocobalamin (vitamin B-12) 500 mcg tablet 500 mcg PO QDAY SUPPLEMENT 03/27/17 [History Last Taken 10/27/17] acetaminophen 500 mg tablet 500 mg PO Q4H PRN PRN Pain 10/27/17 [History Last Taken 10/27/17] thiamine HCl (vitamin B1) 100 mg tablet 100 mg PO DAILY 03/10/18 [History Last Taken Unknown] pantoprazole 20 mg tablet,delayed release 40 mg PO BID 03/15/18 [History Last Taken Unknown] cholecalciferol (vitamin D3) 50 mcg (2,000 unit) tablet 2,000 unit PO DAILY 05/21/18 [History Last Taken Unknown] levothyroxine 175 mcg tablet 175 mcg PO DAILY 06/18/20 [History Last Taken Unknown] apixaban 5 mg tablet (Eliquis) 5 mg PO BID #180 tabs 02/06/22 [Rx Last Taken Unknown] atorvastatin 20 mg tablet 20 mg PO DAILY #90 tabs 02/10/22 [Rx Last Taken Unknown] amlodipine 5 mg tablet 5 mg PO DAILY #90 tabs 03/10/22 [Rx Last Taken Unknown] carvedilol 25 mg tablet 25 mg PO BID #180 tabs 05/15/22 [Rx Last Taken Unknown] cephalexin 500 mg capsule 500 mg PO TID 7 days #21 caps 08/06/22 [Rx Last Taken Unknown] Allergy/AdvReac Type Severity Reaction Status Date / Time Penicillins AdvReac Severe Hives Verified 08/06/22 12:31 Family History Father CAD (coronary artery disease) Mother CAD (coronary artery disease) Thyroid disorder Sister Thyroid cancer Grandmother Diabetes Grandfather Alcoholism Surgical History History of aortic valve replacement with bioprosthetic valve (~01/19/18) History of carpal tunnel surgery History of gastric bypass History of knee surgery History of tricuspid valve repair (~01/19/18) S/P aortic valve replacement Social History Smoking Status: Current some day smoker tobacco type: cigars how long ago did patient quit smokin04/23/2017 alcohol intake: current alcohol intake frequency: a few times a month Alcohol type: hard liquor substance use type: does not use caffeine: Yes Type: coffee what type of physical activity do you participate in: none seatbelt use: always do you feel safe at home: Yes ROS ROS ED ROS Narrative Denies recent illness. Review of Systems ROS Unobtainable: Denies due to encephalopathy Constitutional Constitutional ED: Denies chills or fever(s) Eyes Eyes: Denies blurry vision ENT ENT ED: Denies ear pain Cardiovascular Cardiovascular: Denies chest pain Respiratory/Chest Respiratory/Chest: Denies cough Gastrointestinal Gastrointestinal: Denies abdominal pain Genitourinary Genitourinary ED: Denies dysuria Musculoskeletal Musculoskeletal: Denies back pain Integumentary Denies abscess Neurologic Neurologic: Denies headache(s) Psychiatric Psychiatric: Denies anxiety Endocrine Endocrinology: Denies cold intolerance Hematologic/Lymphatic Hematologic/Lymphatic: Denies easy bleeding Allergic/Immunologic Allergic/Immunologic ED: Denies mouth swelling EXAM Physical Exam Narrative Exam Narrative: 67-year-old male no acute distress. Vital signs stable afebrile. HEENT exam unremarkable. Neck nontender no lymphadenopathy. Lungs clear to auscultation. Heart regular rhythm no murmur. Chest wall nontender. Abdomen soft nontender. Moving all 4 extremities. Neurovascular intact. Specifically left index finger is a laceration a lot of blood and mild active bleeding. No gross bony deformity. There is also a lot of dried blood in the left small finger at to be cleaned off to be further evaluated. He has full flexion extension all digits of the hand. Normal touch sensation and cap refill. There is at least 1 if not more than 1 lacerations on the distal end of the left index finger that will need would be repaired. He is awake and alert. Const Vital Signs: 08/06/22 12:29 Temperature 97.6 F L Temperature Source Temporal Pulse Rate 79 Respiratory Rate 16 Blood Pressure 141/94 H Blood Pressure Mean 109 Pulse Ox 100 Oxygen Delivery Method Room Air Positive well nourished and well developed; Negative for obese, cachectic, contractures or unkempt General Appearance ED: well developed and NAD; Negative for unkempt, cachectic, contractures, cyanotic or diaphoretic Nutritional Appearance: Negative for cachectic or obese HEENT Reports moist mucous membranes normocephalic and atraumatic; Negative for trauma or tenderness Eyes PERRL and EOMs intact bilaterally General Eye ED: Negative for other Neck full ROM and supple General: Negative for tenderness Lymph Lymphatic: Negative for other Chest Wall inspection of chest normal and palpation of chest normal Chest: Negative for other Resp normal respiratory effort and clear to auscultation bilaterally Effort and Inspection: Negative for pain with movement Auscultation: Negative for rales, rhonchi or wheezes Cardio regular rate, regular rhythm, S1 normal heart sound, S2 normal heart sound and no murmurs Rate: Negative for bradycardia or tachycardic GI non-tender, non-distended and no masses Inspection: Negative for abdominal distention Auscultation: normoactive bowel sounds Palpation: soft; Negative for tender or guarding Bladder / Kidney Exam: No other Back/Spine no CVA tenderness General Back: Negative for CVA tenderness Cervical Spine: Negative for cervical spine tenderness Thoracic Spine / Upper Back: Negative for thoracic spinal tenderness Lumbar Spine / Lower Back: Negative for lumbar spinal tenderness Extremity full ROM; Negative for normal to inspection Extremity Narrative: Injury to left index and left small finger. Laceration left distal index. Full flexion-extension all digits left hand. No bony deformity. A lot of dried blood on the small finger which will need to be cleaned and we have dilated. General Extremety ED: Negative for edema General Extremity: Negative for edema Neuro oriented x3, CN's II-XII intact bilaterally, moves all extremities and no focal motor deficits Sensorium / Orientation: alert, oriented to person, oriented to place and oriented to time Motor Exam: strength 5/5 throughout Psych mental status grossly normal Appearance: Negative for unkempt Attitude: No agitated Mood & Affect: Negative for depressed, anxious or tearful Skin Skin Narrative: Laceration left index finger. General Skin Exam: Negative for petechiae Lesions: no lesions Rashes: no rashes Trauma: laceration; Negative for no lacerations or abrasions MDM MDM MDM Narrative Medical decision making narrative: Patient with left hand injury. X-ray of the obtained. Cleaned. Explored. At least 1 laceration left index finger need to be repaired. There may be others. Tetanus to be updated. Patient a very complex flap laceration left index finger that went from the PIP all the way to the end of the finger you could flip it over and expose the flexor tendon. There is no obvious joint involvement. The tendon did not appear to be lacerated. He had full flexion extension normal touch sensation and cap refill. That was repaired. He also had a linear laceration to the left small finger which was repaired. He will be placed on antibiotics Keflex 500 3 times daily for 7 days to try to prevent infection. On follow-up with orthopedics due to the tuft fractures in the hand injury or plastic surgery. He was instructed to clean it daily. Antibiotic ointment daily. Watch for any signs of infection. Tylenol for pain. Ice and elevate. Return if any problems or signs of infection. History & Record Review Discussion w/independent historian: Patient Radiography Diagnostic Testing: Left hand x-ray 3 views interpreted by myself and the radiologist shows distal tuft fractures of both the left index and left small finger. I discussed that with the patient and showed him his x-rays. Procedures Lacerations Left index finger laceration repair:: Length: 3.15 in Depth: Sub Q Shape: Flap Prep: Shure-Clens Laceration repair: Irrigated, Lidocaine, Nerve block and Skin sutures Number of Sutures/Enrique: 15 Suture Information: Ethilon, Simple and 4-0 Comment: Left index finger complex laceration. Approximately 8 cm in length. Involves the ulnar side of the left index finger on the palm wrapped around the distal and came in. You could literally flap the skin over medially. There was exposed tendon but it did not appear to be significantly injured. There was no joint involvement. He has full flexion, extension and touch sensation and cap refill. Digital block was performed. Once proper anesthetic was obtained it was cleaned with Shur-Clens copiously irrigated and explored and closed using 15 simple interrupted 4-0 Ethilon sutures. Proper hemostasis wound closure was obtained. We will place a dressing. He was instructed on wound care and he will be placed on Keflex 3 times a day for a week. He knows to return if any signs of infection. Left small finger laceration repair:: Length: 0.98 in Depth: Skin Shape: Linear Prep: Shure-Clens Laceration repair: Digital block, Irrigated, Lidocaine, Nerve block and Skin sutures Number of Sutures/Enrique: 3 Suture Information: Ethilon, Simple and 5-0 Comment: Left small finger laceration on the ulnar side. Proximately 2.5 cm. Full range of motion. Neurovascular intact. No foreign body. Digital block. Cleaned with Shur-Clens. Copiously irrigated. Explored. Closed using 3 simple interrupted 5-0 Ethilon sutures. Proper hemostasis and wound closure obtained. Patient tolerated procedure well. Discharge Plan Triage Chief Complaint: Laceration ED Provider: Ramos Andrews Dx/Rx/DC Orders Clinical Impression: Laceration of left index finger, Finger fracture, left, Laceration of left little finger Instructions: ED Laceration Hand with ... Prescriptions: New cephalexin 500 mg capsule 500 mg PO TID 7 Days Qty: 21 0RF No Action cholecalciferol (vitamin D3) 2,000 unit tablet 2,000 unit tablet 2,000 unit PO DAILY thiamine HCl (vitamin B1) 100 mg tablet 100 mg PO DAILY pantoprazole 20 mg tablet,delayed release (DR/EC) 40 mg PO BID levothyroxine 175 mcg tablet 175 mcg PO DAILY acetaminophen 500 MG tablet 500 mg PO Q4H PRN PRN (Reason: Pain) cyanocobalamin (vitamin B-12) 500 mcg tablet 500 mcg PO QDAY Eliquis 5 mg tablet 5 mg PO BID Qty: 180 4RF atorvastatin 20 mg tablet 20 mg PO DAILY Qty: 90 3RF amlodipine 5 mg tablet 5 mg PO DAILY Qty: 90 3RF carvedilol 25 mg tablet 25 mg PO BID Qty: 180 4RF Primary Care Provider: Tapan Cuellar Referrals: Daniel Hubbard MD [Med Staff - Active Staff] - 10-14 Days suture removal Tapan Cuellar DO [Primary Care Provider] - Loki Baker DO [Med Staff - Active Staff] - 10-14 Days suture removal Activity Restrictions/Additional Instructions: Ice and elevate your hand to decrease pain and swelling. Tylenol for pain. Clean daily with soap and water. Dry thoroughly. The left small finger laceration should heal well. You also have a fracture of the distal end of the left small finger. The very tip. The left index finger is much more complex and deeper and more complicated laceration. It was all the way down to the flexor tendon. You still have full range of motion and your fingers intact. We need to be careful this does not get infected. Keflex 1 pill 3 times a day for the next week. Clean daily. You also have a fracture at the distal tuft of your left index finger. Stitches out in 14 days. Follow-up with either Dr. Baker with with your orthopedics he is a orthopedic bone doctor. Or Dr. Hubbard the plastic surgeon. Both do hand injuries. Any signs of infection such as redness, pus, fever or significant swelling or streaks return. Disposition Disposition: Home, Self Care
[2022-08-06] MEDS: Diphth,Pertuss(Acell),Tet Vac 0.5 ML Vial IM (13:09)
--- NOTE | 2022-08-06 13:15 | RAD_ITS ---
STUDY: X-RAY - LEFT HAND REASON FOR EXAM: Male, 67 years old. Trauma to l index and small fingers TECHNIQUE: 3 view(s) of the hand. COMPARISON: None. FINDINGS: Normal radiocarpal articulation. Normal distal radioulnar joint. Normal visualized carpal bones. Normal carpal articulations Normal carpometacarpal articulation of the thumb. Normal second through fifth carpometacarpal joints. Normal metacarpi. Normal metacarpophalangeal joint of the thumb. Normal interphalangeal joint of the thumb. Normal proximal and distal phalanges of the thumb. Normal metacarpophalangeal joints of the second through fifth fingers. Normal proximal and distal interphalangeal joints of the second through fifth fingers. Nondisplaced comminuted fracture of the tuft of the distal phalanx of the index finger. Nondisplaced fracture at the tuft of the distal phalanx of the fifth digit. Soft tissue swelling. Tiny radiopacities seen in the soft tissues underlying the proximal phalanx of the index finger. RAD/Hand Min 3 Views IMPRESSION: Nondisplaced fractures at the tuft of the distal phalanx of the second digit and fifth digit with overlying soft tissue swelling. Electronically Signed: Yosvany Carlos MD at 13:36 EDT ,
[2022-08-06 15:00] VITALS: BP 134/76; PULSE 78; RESP 16; TEMP 36.6; O2SAT 99
[2022-08-06 15:18] VITALS: BP 154/96; PULSE 65; RESP 18; O2SAT 95
== END 2022-08-06 15:19 | disposition home or self-care (01) ==
PROVIDERS: Emergency Provider Emergency Medicine; PCP Family Medicine; Visit Provider Emergency Medicine
DX: S62.661B Nondisplaced fracture of distal phalanx of left index finger, initial encounter for open fracture (principal); I48.0 Paroxysmal atrial fibrillation; I25.10 Atherosclerotic heart disease of native coronary artery without angina pectoris; W23.0XXA Caught, crushed, jammed, or pinched between moving objects, initial encounter; I10 Essential (primary) hypertension; E78.5 Hyperlipidemia, unspecified; F17.290 Nicotine dependence, other tobacco product, uncomplicated; Y93.89 Activity, other specified; Y99.8 Other external cause status; Y92.019 Unspecified place in single-family (private) house as the place of occurrence of the external cause; Z23 Encounter for immunization; E03.9 Hypothyroidism, unspecified; Z79.899 Other long term (current) drug therapy; Z79.890 Hormone replacement therapy; Z79.01 Long term (current) use of 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s; Z95.2 Presence of prosthetic heart valve; Z98.84 Bariatric surgery status; S62.667B Nondisplaced fracture of distal phalanx of left little finger, initial encounter for open fracture
CPT/HCPCS: 12004; 73130; 90715; 99283

== ENCOUNTER 2022-08-07 10:37 | Emergency (ER) | payer MEDICARE, OTHER, SELFPAY ==
[2022-08-07 10:38] VITALS: BP 125/90; PULSE 66; RESP 16; TEMP 36.1; O2SAT 99
--- NOTE | 2022-08-07 11:13 | EX.ED.DYSGE1 ---
HPI <MARÍA Raines - Last Filed: 08/07/22 11:53> History of Present Illness Chief Complaint: Wound Check Narrative Narrative: 67-year-old male was here yesterday with a crush injury to his left hand. He had tuft fractures of the index and pinky fingers. Sutures were put in and they are wrapped with bandage and a splint but the index finger bled through the bandaging. He is on Eliquis for A-fib. 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 Atrial fibrillation Atrioventricular block, type I Bruit of left carotid artery Carpal tunnel syndrome Edema of left lower extremity History of stroke HTN (hypertension) Hyperlipidemia Hypothyroidism Kidney disease Kidney failure 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 ligation 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 of 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 Mild atherosclerosis of both carotid arteries Mitral valve insufficiency and aortic valve insufficiency Nonrheumatic tricuspid valve regurgitation PAF (paroxysmal atrial fibrillation) Premature ventricular contraction Presence of biventricular cardiac pacemaker Presence of permanent cardiac pacemaker (~01/19/18) Retinal embolus Sick sinus syndrome Sinus bradycardia SOB (shortness of breath) Stroke Tobacco abuse Ulcer Ventricular hypertrophy Vitamin deficiency Home Medications cyanocobalamin (vitamin B-12) 500 mcg tablet 500 mcg PO QDAY SUPPLEMENT 03/27/17 [History Last Taken 10/27/17] acetaminophen 500 mg tablet 500 mg PO Q4H PRN PRN Pain 10/27/17 [History Last Taken 10/27/17] thiamine HCl (vitamin B1) 100 mg tablet 100 mg PO DAILY 03/10/18 [History Last Taken Unknown] pantoprazole 20 mg tablet,delayed release 40 mg PO BID 03/15/18 [History Last Taken Unknown] cholecalciferol (vitamin D3) 50 mcg (2,000 unit) tablet 2,000 unit PO DAILY 05/21/18 [History Last Taken Unknown] levothyroxine 175 mcg tablet 175 mcg PO DAILY 06/18/20 [History Last Taken Unknown] apixaban 5 mg tablet (Eliquis) 5 mg PO BID #180 tabs 02/06/22 [Rx Last Taken Unknown] atorvastatin 20 mg tablet 20 mg PO DAILY #90 tabs 02/10/22 [Rx Last Taken Unknown] amlodipine 5 mg tablet 5 mg PO DAILY #90 tabs 03/10/22 [Rx Last Taken Unknown] carvedilol 25 mg tablet 25 mg PO BID #180 tabs 05/15/22 [Rx Last Taken Unknown] cephalexin 500 mg capsule 500 mg PO TID 7 days #21 caps 08/06/22 [Rx Last Taken Unknown] Allergy/AdvReac Type Severity Reaction Status Date / Time Penicillins AdvReac Severe Hives Verified 08/07/22 10:38 Family History Father CAD (coronary artery disease) Mother CAD (coronary artery disease) Thyroid disorder Sister Thyroid cancer Grandmother Diabetes Grandfather Alcoholism Surgical History History of aortic valve replacement with bioprosthetic valve (~01/19/18) History of carpal tunnel surgery History of gastric bypass History of knee surgery History of tricuspid valve repair (~01/19/18) S/P aortic valve replacement Social History Smoking Status: Current some day smoker tobacco type: cigars how long ago did patient quit smokin04/23/2017 alcohol intake: current alcohol intake frequency: a few times a month Alcohol type: hard liquor substance use type: does not use caffeine: Yes Type: coffee what type of physical activity do you participate in: none seatbelt use: always do you feel safe at home: Yes ROS <MARÍA Raines - Last Filed: 08/07/22 11:53> ROS ED ROS Narrative Constitutional: Negative for fever, chills, malaise. Neuro: Negative for motor/sensory dysfunction. Skin: Positive for wound. Musc: Positive for finger pain, swelling, trauma. EXAM <MARÍA Raines - Last Filed: 08/07/22 11:53> Physical Exam Narrative Exam Narrative: CONST: Patient sitting in no acute distress. EYES: Normal inspection. NECK: Normal inspection. RESP: No respiratory distress, CTAB. CVS: Regular rate and rhythm, no murmur, no gallop. EXTREMITIES: Left index finger has bloodsoaked through the bandage and tape. When it was removed the sutures are all intact with no dehiscence but there is a small active area of bleeding from the tip of his finger just under the nail. No subungual hematoma. No dehiscence. NEURO: Oriented x4. PSYCH: Normal affect. Const Vital Signs: 08/07/22 10:38 Temperature 97.0 F L Temperature Source Temporal Pulse Rate 66 Respiratory Rate 16 Blood Pressure 125/90 H Blood Pressure Mean 101 Pulse Ox 99 Oxygen Delivery Method Room Air <Dr. Frank Oh MD - Last Filed: 08/07/22 11:58> Physical Exam Const Vital Signs: 08/07/22 10:38 Temperature 97.0 F L Temperature Source Temporal Pulse Rate 66 Respiratory Rate 16 Blood Pressure 125/90 H Blood Pressure Mean 101 Pulse Ox 99 Oxygen Delivery Method Room Air [facility] <MARÍA Raines - Last Filed: 08/07/22 11:53> [facility] Narrative Medical decision making narrative: Patient's left index finger was bleeding through the bandaging from yesterday suture repair for laceration and tuft fracture. The area of bleeding appears to be from the tip of his finger. There is no where to place an additional suture. The area was cleansed and a piece of Surgifoam applied and then it was redressed with a gauze and splint. Patient has follow-up scheduled with the orthopedic hand surgeon and was discharged in stable condition. <Dr. Frank Oh MD - Last Filed: 08/07/22 11:58> [facility] Treatment and Re-Evaluation Comments:: Seen and evaluated independently and in conjunction with physician sales support assistant. Agree with notes above unless documented otherwise. Left index finger laceration repair bleeding all night, anticoagulated because of multiple reasons, prophylactic because of A-fib, prior stroke, several heart valves neither is metal. Patient well-appearing no distress normal vital signs. We were able to control the bleeding well at the tip of the index finger laceration with Surgifoam and a dressing. Tolerating well no bleeding through the dressing, advised to change it no earlier than 1 to 2 days, we sent him home with more surgery from just in case. Discharge Plan Triage Chief Complaint: Wound Check ED Midlevel Provider: Lois Mercer ED Provider: Frank Oh Dx/Rx/DC Orders Clinical Impression: Suture check, Bleeding from wound, Anticoagulated Prescriptions: No Action cholecalciferol (vitamin D3) 2,000 unit tablet 2,000 unit tablet 2,000 unit PO DAILY thiamine HCl (vitamin B1) 100 mg tablet 100 mg PO DAILY pantoprazole 20 mg tablet,delayed release (DR/EC) 40 mg PO BID levothyroxine 175 mcg tablet 175 mcg PO DAILY acetaminophen 500 MG tablet 500 mg PO Q4H PRN PRN (Reason: Pain) cephalexin 500 mg capsule 500 mg PO TID 7 Days Qty: 21 0RF cyanocobalamin (vitamin B-12) 500 mcg tablet 500 mcg PO QDAY Eliquis 5 mg tablet 5 mg PO BID Qty: 180 4RF atorvastatin 20 mg tablet 20 mg PO DAILY Qty: 90 3RF amlodipine 5 mg tablet 5 mg PO DAILY Qty: 90 3RF carvedilol 25 mg tablet 25 mg PO BID Qty: 180 4RF Primary Care Provider: Tapan Cuellar Referrals: Tapan Cuellar, [Primary Care Provider] - Activity Restrictions/Additional Instructions: The piece of foam applied to the end of your finger should help the bleeding stop. Keep the area wrapped and follow-up with the orthopedic doctor. If you have issues with bleeding through bandaging again that does not resolve with direct pressure please come back to the ER. Disposition Disposition: Home, Self Care
--- NOTE | 2022-08-07 11:57 | ED.RN ---
SURGIFOAM APPLIED TO LEFT INDEX FINGER AND PINKY FINGER, UNABLE TO SCAN IN MAR
[2022-08-07] MEDS: Gelatin Sponge Absorbable 50cm (1) 1 EACH TOPICAL (12:01)
== END 2022-08-07 12:01 | disposition home or self-care (01) ==
PROVIDERS: Emergency Provider Emergency Medicine; PCP Family Medicine; Visit Provider Emergency Medicine
DX: T81.33XA Disruption of traumatic injury wound repair, initial encounter (principal); I48.91 Unspecified atrial fibrillation; F17.290 Nicotine dependence, other tobacco product, uncomplicated; I10 Essential (primary) hypertension; I25.10 Atherosclerotic heart disease of native coronary artery without angina pectoris; E78.5 Hyperlipidemia, unspecified; Z79.01 Long term (current) use of 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s; Z48.00 Encounter for change or removal of nonsurgical wound dressing; Y84.9 Medical procedure, unspecified as the cause of abnormal reaction of the patient, or of later complication, without mention of misadventure at the time of the procedure
CPT/HCPCS: 99282; A4216

== ENCOUNTER → 2022-11-17 | Outpatient (CLI) | payer MEDICARE, OTHER, SELFPAY ==
[2022-11-17 09:33] LABS: Absolute Lymphocyte Count 1.52 X10^3/uL (0.83-4.51); Absolute Neutrophil Count 2.8 X10^3/uL (2.0-7.7); Basophil# 0.04 X10^3/uL; Basophil% 0.8 % (0-1); Eosinophil# 0.07 X10^3/uL; Eosinophils% 1.5 % (0-5); Hematocrit 46.6 % (40-54); Hemoglobin 14.5 g/dL (13.0-16.5); Lymphocyte # 1.52 X10^3/ul (0.83-4.51); Lymphocyte % 31.7 % (19-41); Mean Corp Hgb Conc 31.1 g/dL (32-36); Mean Corpuscular Hgb 33.7 pg (27.0-32.0); Mean Corpuscular Volume 108.4 fL (80-94); Mean Platelet Vol. 10.3 fl (6.2-12.0); Monocyte# 0.39 X10^3/uL; Monocyte% 8.1 % (0-10); NRBC Flagged by Analyzer 0 % (0-5); Neutrophil # 2.76 X10^3/uL (2.7-7.7); Neutrophil % 57.7 % (47-70); Platelet Count 126 K/mm3 (150-450); RBC Distribution Width SD 56.9 fl (35.1-43.9); White Blood Count 4.8 K/mm3 (4.4-11.0)
[2022-11-17 09:59] LABS: Protein, Urine (Random) 120.2 mg/dL (<11.9); Protein:Creat Ratio 2531 mg/g CRE (0-200)
[2022-11-17 10:10] LABS: ALB/GLOB Ratio 0.8 RATIO (0.9-2.4); AST(SGOT) 25 U/L (15-37); Alanine Aminotransfer ALT/SGPT 32 U/L (16-61); Albumin, Serum 3.4 g/dL (3.2-5.0); Alkaline Phosphatase 136 U/L (45-117); Anion Gap 4 (5-15); BUN 41 mg/dL (7-18); BUN/Creat Ratio 20.8 RATIO (10-20); Bilirubin, Direct 0.18 mg/dL (0.00-0.30); Calcium,Total 9.1 mg/dL (8.5-10.1); Chloride 113 mmol/L (98-107); Cholesterol 112 mg/dL (200); Creatinine, Serum 1.97 mg/dL (0.70-1.30); EST Glomerular Filtration Rate 36 mL/min (>60); Est Glom Filt Rate - Afr Amer 44 mL/min (>60); Ferritin 34 ng/mL (26-388); Globulin 4.4 g/dL (2.2-4.2); Glucose 94 mg/dL (74-106); High Density Lipoprotein 52 mg/dL; Iron 80 ug/dL (65-175); Phosphorus 4.5 mg/dL (2.5-4.9); Potassium 5.1 mmol/L (3.5-5.1); Protein, Total 7.8 g/dL (6.4-8.2); Sodium Level 140 mmol/L (136-145); T4 Free Direct 1.11 ng/dL (0.76-1.46); Thyroid Stim Hormone (TSH) 0.32 uIU/mL (0.358-3.74); Triglycerides 139 mg/dL; Very Low Density Lipoprotein 28 mg/dL (5-40)
[2022-11-17 12:52] LABS: Vitamin D,25 Hydroxy 32.5 ng/mL
[2022-11-18 14:09] LABS: Albumin 3.4 g/dL (2.9-4.4); Alpha-1-Globulins 0.3 g/dL (0.0-0.4); Alpha-2-Globulins 0.9 g/dL (0.4-1.0); Complement C3 113 mg/dL (82-167); Gamma Globulin 1.4 g/dL (0.4-1.8); Immunoglobulin A 356 mg/dL (61-437); Immunoglobulin G 1520 mg/dL (603-1613); Immunoglobulin M 27 mg/dL (20-172); PROEL- TOTAL PROTEIN 6.9 g/dL (6.0-8.5)
== END | disposition home or self-care (01) ==
LOC: LAB 08:14
PROVIDERS: PCP Family Medicine; Referring Provider Physician Assistant Medical; Visit Provider Physician Assistant Medical
DX: N18.4 Chronic kidney disease, stage 4 (severe) (principal); E03.9 Hypothyroidism, unspecified; D50.9 Iron deficiency anemia, unspecified
CPT/HCPCS: 36415; 80053; 80061; 82248; 82306; 82570; 82728; 82784; 83540; 83970; 84100; 84156; 84165; 84439; 84443; 85025; 86160; 86334

== ENCOUNTER 2022-11-20 11:24 | Day surgery (SDC) | payer MEDICARE, OTHER, SELFPAY ==
[2022-11-20] MEDS: Lactated Ringers 1,000 ML 15 ML IV (12:00)
[2022-11-20 12:03] VITALS: BP 126/82; PULSE 61; RESP 16; TEMP 36.3; O2SAT 97; BMI 24.3
[2022-11-20] MEDS: Cefazolin 2 GM in 0.9% Normal Saline 100 ML IV (12:48)
[2022-11-20] MEDS: Lidocaine 1% /Epi 1:100 (20ml) 20 ML Vial (12:59)
[2022-11-20 13:01] VITALS: BP 151/91; PULSE 60
[2022-11-20 13:02] VITALS: BP 151/91; PULSE 61; RESP 16; O2SAT 95
[2022-11-20 13:07] VITALS: BP 148/88; PULSE 60; RESP 16; O2SAT 95
[2022-11-20 13:12] VITALS: BP 145/86; PULSE 60; RESP 16; O2SAT 95
[2022-11-20 13:30] VITALS: BP 126/82; BP 140/78; PULSE 59; RESP 16; TEMP 36.4; O2SAT 99
--- NOTE | 2022-11-20 13:54 | DCINST_ITS ---
Discharge Instructions Follow Up Care Test Results: Test results from this visit will be discussed in further detail at your follow- up appointment, if applicable. Discharge Plan Admission Primary Reason for Your Visit: Left index finger revision amputation Attending Provider: Loki Baker Primary Care Provider: Tapan Cuellar Instructions Additional Instructions / Restrictions: Follow preprinted instructions for surgeons office Discharge Orders/Prescriptions Prescriptions: New oxycodone-acetaminophen 5-325 mg tablet 1 tab PO Q6H PRN (Reason: pain) 7 Days Qty: 28 0RF doxycycline monohydrate 100 mg capsule 100 mg PO BID 14 Days Qty: 28 0RF Continued cholecalciferol (vitamin D3) 2,000 unit tablet 2,000 unit tablet 2,000 unit PO DAILY thiamine HCl (vitamin B1) 100 mg tablet 100 mg PO DAILY pantoprazole 20 mg tablet,delayed release (DR/EC) 40 mg PO BID levothyroxine 175 mcg tablet 175 mcg PO DAILY acetaminophen 500 MG tablet 500 mg PO Q4H PRN PRN (Reason: Pain) cyanocobalamin (vitamin B-12) 500 mcg tablet 500 mcg PO QDAY atorvastatin 20 mg tablet 20 mg PO DAILY Qty: 90 3RF amlodipine 5 mg tablet 5 mg PO DAILY Qty: 90 3RF carvedilol 25 mg tablet 25 mg PO BID Qty: 180 4RF Eliquis 5 mg tablet 5 mg PO BID Qty: 180 4RF Referrals / Follow Up: Tapan Cuellar DO [Primary Care Provider] - Disposition Disposition (needs filled in before D/C Order can be placed): Home, Self Care
--- NOTE | 2022-11-20 13:54 | OP.PCM_ITS ---
Report of Operation Date of Procedure: 11/20/22 Description of Surgical Findings:: Preoperative diagnosis: 1. Remote fingertip amputation left index finger 2. Left distal phalanx osteomyelitis Postoperative diagnosis: 1. Remote fingertip amputation left index finger 2. Left distal phalanx osteomyelitis Procedure: Revision amputation left index finger to the middle phalanx level. Surgeon: Loki Baker DO [employer] C[employer] Hand: None Anesthesia: Local IV fluids: None Urine output: None Packing/drains: None Specimen: Left index finger distal phalanx sent for culture Intraoperative findings: Pathologic appearing bone of the distal phalanx. Healthy appearing bone at the distal portion of the middle phalanx following amputation. Preoperative indications: This is a 67-year-old male seen in the outpatient setting for left index finger suspected infection. He sustained an injury approximately 3 months ago to the left index finger and sustained a fingertip injury at that time which was closed. He was put on antibiotics and local wound care advised. He has been on 3 courses of antibiotics with waxing and waning signs and symptoms of infection. I saw the patient in the office and there was noted exposed distal phalanx approximately 1 week ago. I explained this is diagnostic for osteomyelitis in the chronic setting. I recommended surgical invention form of revision amputation left index finger. The risks, benefits, terms of procedure were reviewed with the patient at length and he agreed to proceed. Risk included but were not limited to bleeding, flexion, loss of life or limb, need for additional surgery, persistent pain, nonhealing wounds, persistent infection, neuroma formation, neurovascular injury, stiffness. Patient expressed understanding of these risks and wished to proceed with surgery. Informed consent obtained in the outpatient setting. Description of procedure: Patient was identified in the preoperative holding area by name, medical record number, and date of . The operative extremities marked. All questions answered to patient satisfaction. At the time of his procedure, patient brought the operative suite positioned supine a sterile operating table with a hand table attached to the patient's left side. All bony prominences were well- padded. I then administered a digital nerve block to the left index finger with 10 cc total 1% lidocaine with epinephrine 1: 100,000. Patient tolerated the block well. The left hand was prepped and draped in normal, sterile orthopedic fashion. 2 g Ancef was administered IV by nursing staff. Then performed timeout with all parties in attendance in agreement the side, site, and operation be performed. No concerns were voiced and we elected proceed with surgery. I first confirmed anesthesia overlying the planned amputation site. A fishmouth incision was made sharply through skin and subcutaneous tissue ensuring complete amputation of the nail matrix. Full-thickness skin flaps were developed. Neurovascular bundles were identified. Vessels were identified and cauterized. Digital nerves were put on stretch and sharply amputated and allowed to retract into the stump. I then proceeded with disarticulation of the distal interphalangeal joint sharply with 15 blade scalpel with the amputation of the flexor and extensor tendons respectively. The distal phalanx was removed from the surgical field and sent for specimen culture. Hemostasis was excellent at this time. I debrided the chondral surface of the distal interphalangeal joint of the remaining middle phalanx. This was bone appeared healthy compared to pathologic appearing bone of the distal phalanx. No gross purulence was encountered. Wound was copiously irrigated with normal saline solution. I then closed the full-thickness flap over the middle phalanx with interrupted simple 4-0 Prolene. A bulky sterile dressing was applied. Patient tolerated procedure well without apparent complication. He was transferred back to his [facility] and subsequently to PACU in stable condition. Postoperative plan: Nonweightbearing to the operative extremity. Maintain surgical dressing x3 days then okay to shower. Ice and elevation. Doxycycline 100 mg twice daily x14 days. Oxycodone prescribed. Follow-up in 1 week for wound check. Cultures pending.
== END 2022-11-20 13:56 | disposition home or self-care (01) ==
LOC: SDC 11:25 → AC 11:27
PROVIDERS: PCP Family Medicine; Referring Provider Student in an Organized Health Care Education/Training Program; Visit Provider Student in an Organized Health Care Education/Training Program
PROC: (CPT 26236; principal; 2022-11-20 13:30)
DX: S68.111A Complete traumatic metacarpophalangeal amputation of left index finger, initial encounter (principal); M86.9 Osteomyelitis, unspecified; N18.4 Chronic kidney disease, stage 4 (severe); I48.0 Paroxysmal atrial fibrillation; F17.210 Nicotine dependence, cigarettes, uncomplicated; I12.9 Hypertensive chronic kidney disease with stage 1 through stage 4 chronic kidney disease, or unspecified chronic kidney disease; E78.00 Pure hypercholesterolemia, unspecified; Z79.899 Other long term (current) drug therapy; Z79.01 Long term (current) use of 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s; Z86.73 Personal history of transient ischemic attack (TIA), and cerebral infarction without residual deficits; X58.XXXA Exposure to other specified factors, initial encounter; Z95.0 Presence of cardiac pacemaker; E03.9 Hypothyroidism, unspecified
CPT/HCPCS: 26236; 01830; 87070; 87075; 87077; 87176; 87186; 87205; J7120

== ENCOUNTER → 2023-03-25 | Outpatient (CLI) | payer MEDICARE, OTHER, SELFPAY ==
[2023-03-25 15:21] LABS: Absolute Lymphocyte Count 0.79 X10^3/uL (0.83-4.51); Absolute Neutrophil Count 4.5 X10^3/uL (2.0-7.7); Basophil# 0.03 X10^3/uL; Basophil% 0.5 % (0-1); Eosinophil# 0.06 X10^3/uL; Hematocrit 32.7 % (40-54); Hemoglobin 9.5 g/dL (13.0-16.5); Lymphocyte # 0.79 X10^3/ul (0.83-4.51); Lymphocyte % 13.2 % (19-41); Mean Corp Hgb Conc 29.1 g/dL (32-36); Mean Corpuscular Hgb 31.9 pg (27.0-32.0); Mean Corpuscular Volume 109.7 fL (80-94); Mean Platelet Vol. 9.6 fl (6.2-12.0); Monocyte# 0.62 X10^3/uL; Monocyte% 10.3 % (0-10); NRBC Flagged by Analyzer 0 % (0-5); Neutrophil # 4.48 X10^3/uL (2.7-7.7); Neutrophil % 74.7 % (47-70); POSITIVE MORPHOLOGY YES; Platelet Count 197 K/mm3 (150-450); RBC Distribution Width CV 16.5 % (11.6-14.6); Red Blood Count 2.98 M/mm3 (4.6-6.2)
[2023-03-25 15:22] LABS: Differential Indicated SCAN CRITERIA MET
[2023-03-25 16:12] LABS: Ferritin 39 ng/mL (26-388); Iron 27 ug/dL (65-175); T4 Free Direct 1.14 ng/dL (0.76-1.46); Thyroid Stim Hormone (TSH) 0.59 uIU/mL (0.358-3.74)
[2023-03-25 16:19] LABS: Differential Comment SCANNED
== END | disposition home or self-care (01) ==
LOC: LAB 14:02
PROVIDERS: PCP Family Medicine; Referring Provider Family Medicine; Visit Provider Family Medicine
DX: D50.9 Iron deficiency anemia, unspecified (principal); E03.9 Hypothyroidism, unspecified
CPT/HCPCS: 36415; 82728; 83540; 84439; 84443; 85025

== ENCOUNTER → 2023-03-26 | Outpatient (CLI) | payer MEDICARE, OTHER, SELFPAY | END | disposition home or self-care (01) | LOC: LABSPEC 09:25 | PROVIDERS: PCP Family Medicine; Referring Provider Physician Assistant; Visit Provider Physician Assistant | DX: L02.31 Cutaneous abscess of buttock (principal) | CPT/HCPCS: 87070; 87075; 87077; 87205 ==

== ENCOUNTER 2023-03-31 11:58 | Inpatient (IN) | payer MEDICARE, OTHER, SELFPAY ==
[2023-03-31] VITALS (15 sets, daily range): BP systolic 109–153; BP diastolic 64–89; PULSE 59–68; RESP 12–22; TEMP 2.6–36.9; O2SAT 88–94; BMI 26.3; BMI 25.7
--- NOTE | 2023-03-31 13:26 | EKG12_ITS ---
Test Reason : HYPERKALEMIA Blood Pressure : / mmHG Vent. Rate : 063 BPM Atrial Rate : 063 BPM P-R Int : 168 ms QRS Dur : 188 ms QT Int : 464 ms P-R-T Axes : 087 -86 088 degrees QTc Int : 474 ms AV dual-paced rhythm Abnormal ECG When compared with ECG of 31-MAR-2023 13:51, MANUAL COMPARISON REQUIRED, DATA IS UNCONFIRMED Confirmed by EVIN ZAMORA, SANDRA ([id number]), purchasing expeditor LEONOR WIN ([id number]) on 04/01/2023 9:01:17 AM Referred By: Confirmed By:SANDRA CLEARY MD
--- NOTE | 2023-03-31 13:26 | RAD_ITS ---
STUDY: X-RAY CHEST REASON FOR EXAM: Male, 68 years old. Shortness of breath for several days. TECHNIQUE: PA and lateral views of the chest. COMPARISON: Comparison is made with prior study dated September 26, 2021. FINDINGS: EKG electrodes are seen. Hyperinflation. Focal right lower lobe infiltrate with blunting of the right costophrenic angle. Sternal cerclage wires are present from a prior sternotomy. Prior aortic valve replacement. Borderline cardiomegaly. Normal mediastinum and soren. Normal visualized pulmonary arteries. There is atherosclerotic calcification of the aortic arch with tortuosity. There are diffuse degenerative changes of the visualized thoracic spine. Normal visualized ribs, clavicles, and shoulders. There is no demonstrated abnormality of the visualized soft tissue structures of the upper abdomen. RAD/Chest PA and Lateral IMPRESSION: Right lower lobe infiltrate and blunting of the right costophrenic angle. Electronically Signed: Yosvany Carlos MD at 14:49 EST ,
[2023-03-31 13:56] LABS: Absolute Lymphocyte Count 0.89 X10^3/uL (0.83-4.51); Absolute Neutrophil Count 3.2 X10^3/uL (2.0-7.7); Basophil# 0.02 X10^3/uL; Basophil% 0.4 % (0-1); Eosinophil# 0.08 X10^3/uL; Eosinophils% 1.7 % (0-5); Hematocrit 30.8 % (40-54); Hemoglobin 8.9 g/dL (13.0-16.5); Lymphocyte # 0.89 X10^3/ul (0.83-4.51); Lymphocyte % 19.2 % (19-41); Mean Corp Hgb Conc 28.9 g/dL (32-36); Mean Corpuscular Hgb 31.7 pg (27.0-32.0); Mean Corpuscular Volume 109.6 fL (80-94); Mean Platelet Vol. 9.5 fl (6.2-12.0); Monocyte# 0.45 X10^3/uL; Monocyte% 9.7 % (0-10); NRBC Flagged by Analyzer 0 % (0-5); Neutrophil # 3.19 X10^3/uL (2.7-7.7); Neutrophil % 68.8 % (47-70); POSITIVE MORPHOLOGY YES; Platelet Count 179 K/mm3 (150-450); RBC Distribution Width SD 67.3 fl (35.1-43.9); Red Blood Count 2.81 M/mm3 (4.6-6.2); White Blood Count 4.6 K/mm3 (4.4-11.0)
[2023-03-31 14:02] LABS: Differential Indicated SCAN CRITERIA MET
[2023-03-31 14:10] LABS: Anion Gap 1 (5-15); Anisocytosis 2+; BUN 45 mg/dL (7-18); BUN/Creat Ratio 15.2 RATIO (10-20); Calcium,Total 8.8 mg/dL (8.5-10.1); Chloride 117 mmol/L (98-107); Creatinine, Serum 2.97 mg/dL (0.70-1.30); Differential Comment SCANNED; EST Glomerular Filtration Rate 23 mL/min (>60); Est Glom Filt Rate - Afr Amer 27 mL/min (>60); Estimated Creatinine Clearance 29.63 ml/min; Glucose 84 mg/dL (74-106); Macrocytosis 1+; Microcytosis 1+; Potassium 6.9 mmol/L (3.5-5.1); Sodium Level 138 mmol/L (136-145)
--- NOTE | 2023-03-31 14:13 | ED.RN ---
POTASSIUM 6.[address] ROJO NOTIFIED
[2023-03-31 14:18] LABS: BNP,B-Type NATRIURETIC PEPTIDE 459.6 pg/mL (0-100)
[2023-03-31] MEDS: Albuterol 2.5 MG/3 ML VIAL.NEB. 10 MG INHALATION (14:36)
[2023-03-31] MEDS: Dextrose 50%-Water 25 GM/50 ML DISP.SYRIN IV (14:43)
[2023-03-31] MEDS: Insulin Lispro 10 UNIT in Syringe 0 ML 6 UNIT IV (14:43)
--- NOTE | 2023-03-31 15:19 | ED.VIS.DYS ---
HPI History of Present Illness Chief Complaint: Shortness of Breath Informant: patient Narrative Narrative: 2-week history of cough. Denies fevers. Denies myalgias. Reporting exertional dyspnea. No chest pains. He is on Eliquis for history of paroxysmal A-fib with a pacemaker. Denies vomiting diarrhea or any urinary symptoms. Decreased oral intake. Reports that concerns of worsening anemia. History anemia recent blood count of 9. He is required blood transfusions however it has been years ago. He is previously given iron infusions. 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 History of gastric ulcers in the past. Denies rectal bleeding with black tarry stools or any bloody stools. Denies abdominal pain. Denies any chest pains or chest tightness. He has been taking his Eliquis. He states 2018 was on temporary dialysis stills follows nephrology Dr. Rogers. 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 Atrial fibrillation Atrioventricular block, type I Bruit of left carotid artery Cardiology follow-up encounter Carpal tunnel syndrome Edema of left lower extremity High cholesterol History of echocardiogram History of GI bleed History of stroke History of ulceration HTN (hypertension) Hyperlipidemia Hypothyroidism Kidney disease Kidney failure 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 ligation 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 Mild atherosclerosis of both carotid arteries Mitral valve insufficiency and aortic valve insufficiency Nonrheumatic tricuspid valve regurgitation Open wound PAF (paroxysmal atrial fibrillation) Premature ventricular contraction Presence of biventricular cardiac pacemaker Presence of permanent cardiac pacemaker (~01/19/18) Retinal embolus Sick sinus syndrome Sinus bradycardia Smoker SOB (shortness of breath) Stroke Thyroid disease Tobacco abuse Ulcer Ventricular hypertrophy Vitamin deficiency Wears dentures Home Medications cyanocobalamin (vitamin B-12) 500 mcg tablet 500 mcg PO QDAY SUPPLEMENT 03/27/17 [History Last Taken 03/31/23] acetaminophen 500 mg tablet 1,000 mg PO Q4H PRN Pain 10/27/17 [History Last Taken 03/30/23] pantoprazole 20 mg tablet,delayed release 40 mg PO BID 03/15/18 [History Last Taken 03/31/23] cholecalciferol (vitamin D3) 50 mcg (2,000 unit) tablet 2,000 unit PO DAILY 05/21/18 [History Last Taken 03/31/23] carvedilol 25 mg tablet 25 mg PO BID #180 tabs 05/15/22 [Rx Last Taken 03/31/23] dapagliflozin propanediol 10 mg tablet (Farxiga) 10 mg PO DAILY 11/25/22 [History Last Taken 03/31/23] atorvastatin 20 mg tablet 20 mg PO DAILY #90 tabs 02/06/23 [Rx Last Taken 03/30/23] amlodipine 5 mg tablet 5 mg PO DAILY #90 tabs 02/23/23 [Rx Last Taken 03/31/23] apixaban 5 mg tablet (Eliquis) 5 mg PO BID #180 tabs 03/10/23 [Rx Last Taken 03/31/23] sulfamethoxazole 800 mg-trimethoprim 160 mg tablet (Bactrim DS) 1 tab PO BID 10 days #20 tabs 03/26/23 [Rx Last Taken 03/31/23] levothyroxine 150 mcg tablet 150 mcg PO DAILY 03/31/23 [History Last Taken 03/31/23] Allergy/AdvReac Type Severity Reaction Status Date / Time Penicillins AdvReac Severe Hives Verified 03/31/23 12:00 Family History Father CAD (coronary artery disease) Mother CAD (coronary artery disease) Thyroid disorder Sister Thyroid cancer Grandmother Diabetes Grandfather Alcoholism Surgical History History of aortic valve replacement with bioprosthetic valve (~01/19/18) History of cardiac catheterization History of carpal tunnel surgery History of gastric bypass History of heart surgery (~2017) History of knee surgery History of tricuspid valve repair (~01/19/18) S/P aortic valve replacement Social History Smoking Status: Current every day smoker tobacco type: cigars how long ago did patient quit smokin04/23/2017 alcohol intake: current alcohol intake frequency: a few times a month Alcohol type: hard liquor substance use type: does not use caffeine: Yes Type: coffee what type of physical activity do you participate in: none seatbelt use: always do you feel safe at home: Yes ROS ROS ED Constitutional Constitutional ED: Denies chills, fever(s) or sweats Eyes Eyes: Denies change in vision ENT ENT ED: Denies dysphagia or sore throat Cardiovascular Cardiovascular: Denies chest pain, leg edema, palpitations or racing heartbeat Respiratory/Chest Respiratory/Chest: Reports cough, dyspnea and dyspnea on exertion Gastrointestinal Gastrointestinal: Denies abdominal pain, diarrhea, nausea or vomiting Genitourinary Genitourinary ED: Denies dysuria, hematuria or urinary frequency Musculoskeletal Musculoskeletal: Denies back pain, extremity pain or neck pain Integumentary Denies rash or wounds Neurologic Neurologic: Denies headache(s), paresthesias or weakness EXAM Physical Exam Narrative Exam Narrative: Interventions / MDM: Differential diagnosis: Pneumonia, viral syndrome, electrolyte abnormalities Diagnosis considered but do not suspect: Pulmonary embolus however is chronic anticoagulation. My EKG interpretation: Paced rhythm rate of 62, no ST or T wave changes. Imaging independently reviewed and interpreted by myself: 2 view chest x-ray: Right lower lobe pneumonia. No effusions. External documents reviewed: N/A Test considered but not ordered:N/A ED course: Patient on currently 2 L nasal cannula with pulse ox noted 88% per nursing. He is in no respiratory distress. Laboratory studies obtained, chest x-ray ordered, COVID influenza ordered. No wheezing. White count zero 4.6 hemoglobin 8.9 down from 9.5 recently. Creatinine returned 2.97 up from 1.97, potassium 6.9. No EKG changes. Nonhemolyzed. He is treated with aerosol treatments along with insulin glucose to shift the potassium. He states reported elevated potassium a year ago he is followed by nephrology Dr. Rogers states has used Lokelma in the past. Chest x-ray consistent with right lower lobe infiltrative findings. Currently SIRS criteria for 0 out of 4. Does not meet any sepsis criteria at this time. Covered with Rocephin and Zithromax antibiotics. I spoke with hospitalist Dr. Vela for admission to PCU. Re-evaluation: stable Disposition discussed with patient/family/significant other: Patient Case discussed with consulting clinician: Hospitalist This note was generated with [employer] dictation software. It may contain incorrect words, spelling, and punctuation that were not noted in checking the note before signing. Const Vital Signs: 03/31/23 12:00 03/31/23 13:08 03/31/23 13:09 Temperature 98 F Temperature Source Temporal Pulse Rate 67 65 Respiratory Rate 16 20 H Respiratory Effort Normal Non-Labored Respiratory Depth Normal Respiratory Pattern Normal Blood Pressure 151/89 H 153/89 H Blood Pressure Mean 109 110 Pulse Ox 94 88 Oxygen Delivery Method Room Air Room Air Room Air Oxygen Flow Rate (L/min) 03/31/23 13:10 03/31/23 14:38 03/31/23 14:38 Temperature Temperature Source Pulse Rate 63 Respiratory Rate 17 Respiratory Effort Respiratory Depth Respiratory Pattern Normal Blood Pressure Blood Pressure Mean Pulse Ox 93 93 Oxygen Delivery Method Nasal Cannula Nasal Cannula Oxygen Flow Rate (L/min) 2 2 03/31/23 15:50 Temperature Temperature Source Pulse Rate 68 Respiratory Rate 12 Respiratory Effort Respiratory Depth Respiratory Pattern Blood Pressure 136/77 H Blood Pressure Mean 96 Pulse Ox 92 Oxygen Delivery Method Nasal Cannula Oxygen Flow Rate (L/min) 3 Positive well nourished and well developed Constitutional Narrative: 2 L nasal cannula no respiratory distress General Appearance ED: well developed and NAD HEENT Reports moist mucous membranes normocephalic and atraumatic Eyes PERRL, EOMs intact bilaterally and conjunctivae normal Eyes Narrative: No pallor of conjunctiva. General Eye ED: Yes normal appearance of both eyes Neck no lymphadenopathy and supple General: Negative for tenderness Chest Wall Chest: Negative for tenderness Resp normal respiratory effort and normal air movement Effort and Inspection: symmetric chest movement; Negative for respiratory distress Cardio regular rate, regular rhythm and no murmurs Peripheral Pulses: pulses 2+ throughout GI normal to inspection, nondistended, normoactive bowel sounds and non-tender Palpation: Negative for guarding or rebound tenderness present Back/Spine no CVA tenderness and no thoracic nor lumbar tenderness Extremity normal to inspection General Extremety ED: Negative for edema or tenderness General Extremity: Negative for edema Neuro oriented x3 and no sensory deficits noted Sensorium / Orientation: awake and alert Skin no rashes or lesions noted and no wounds MDM MDM Lab Data Labs: Laboratory Results - last 24 hr 03/31/23 13:45 WBC 4.6 RBC 2.81 L Hgb 8.9 L Hct 30.8 L MCV 109.6 H MCH 31.7 MCHC 28.9 L RDW Std Deviation 67.3 H RDW Coeff of Hugo 17.0 H Plt Count 179 MPV 9.5 Immature Gran % (Auto) 0.200 Neut % (Auto) 68.8 Lymph % (Auto) 19.2 [place] % (Auto) 9.7 Eos % (Auto) 1.7 Baso % (Auto) 0.4 Absolute Neuts (auto) 3.2 Absolute Lymphs (auto) 0.89 Nucleated RBC % 0 Differential Comment SCANNED Anisocytosis 2+ Microcytosis 1+ Macrocytosis 1+ Sodium 138 Potassium 6.9 H* Chloride 117 H Carbon Dioxide 20.0 L Anion Gap 1 L BUN 45 H Creatinine 2.97 H Estim Creat Clear Calc 29.63 Est GFR (MDRD) Af Amer 27 L Est GFR (MDRD) Non-Af 23 L BUN/Creatinine Ratio 15.2 Glucose 84 Calcium 8.8 B-Natriuretic Peptide 459.6 H Discharge Plan Dx/Rx/DC Orders Clinical Impression: IRINA (acute kidney injury), [facility] current use of 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, Community acquired pneumonia, Hypoxia, Hyperkalemia, Anemia Disposition Disposition: Acute Care Hospital [facility]
--- NOTE | 2023-03-31 15:27 | PCM.HP.STD ---
HPI - General General Date of Admission: 03/31/23 Date of Service: 03/31/23 Chief Complaint: Dyspnea. HPI Narrative The patient is a 68 y/o M w/ PMHx: CKD stage III unclear subtype based on GFT trending, Hx CVA, Hx retinal embolism, GERD w/ Hx gastric ulcer/GI bleed, Chronic anemia/Fe deficiency anemia, Valvular Heart Disease w/ Hx Aortic valve endocarditis s/p AVR bioprosthetic and TV repair, CAD, PAF, HTN, HLD, Hypothyroidism, Hx Sick Sinus Syndrome s/p pacemaker status, Hypothyroidism, Tobacco use who presents to the [facility] ED on 03/31/2023 with history of shortness of breath, lightheadedness and dizziness with recently noted anemia with workup ongoing outpatient but given symptomatic prompted ED evaluation. He denies dark stools. He notes he had ulceration back in 2018. He is also note recent mildly increased cough above his baseline over the last 2 weeks but nonproductive and his dyspnea is worse with exertion. He denies any recent upper respiratory type symptoms or fevers or chills. Workup in the ED included T98, heart rate 67, BP 151/89, respiratory rate 16, initially 94% on room air however desaturated to 88% on room air with improvement to 93% on 2 L nasal cannula, CBC with WBC 4.6, hemoglobin 8.9, MCV 109.6, platelet 179 without marked shift, BMP with potassium 6.9 not noted to be hemolyzed, chloride 117, carbon oxide 20, BUN/creatinine 45/2.97, BNP 459.6, chest x-ray with preliminary review with evidence of right lower lobe pneumonia however final read pending upon evaluation. EKG paced without acute findings with mild peak but similar to prior EKG. In the ED patient ministered dextrose, insulin 10 unit IV x 1, azithromycin 5 mg IV x 1, Rocephin 1 g IV x 1 as well as albuterol 10 mg inhalation x 1. [facility] Medical History Abnormal EKG Abscess of left buttock Acute bronchitis, unspecified Acute CVA (cerebrovascular accident) (10/27/17) Acute stomach ulcer Anemia Anemia, iron deficiency Aortic stenosis Aortic valve endocarditis (~12/2017) Atherosclerotic heart disease of [place] coronary artery without angina pectoris Atrial fibrillation Atrioventricular block, type I Bruit of left carotid artery Cardiology follow-up encounter Carpal tunnel syndrome Edema of left lower extremity High cholesterol History of echocardiogram History of GI bleed History of stroke History of ulceration HTN (hypertension) Hyperlipidemia Hypothyroidism Kidney disease Kidney failure 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 ligation 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 Mild atherosclerosis of both carotid arteries Mitral valve insufficiency and aortic valve insufficiency Nonrheumatic tricuspid valve regurgitation Open wound PAF (paroxysmal atrial fibrillation) Premature ventricular contraction Presence of biventricular cardiac pacemaker Presence of permanent cardiac pacemaker (~01/19/18) Retinal embolus Sick sinus syndrome Sinus bradycardia Smoker SOB (shortness of breath) Stroke Thyroid disease Tobacco abuse Ulcer Ventricular hypertrophy Vitamin deficiency Wears dentures Home Medications cyanocobalamin (vitamin B-12) 500 mcg tablet 500 mcg PO QDAY SUPPLEMENT 03/27/17 [History Last Taken 03/31/23] acetaminophen 500 mg tablet 1,000 mg PO Q4H PRN Pain 10/27/17 [History Last Taken 03/30/23] pantoprazole 20 mg tablet,delayed release 40 mg PO BID 03/15/18 [History Last Taken 03/31/23] cholecalciferol (vitamin D3) 50 mcg (2,000 unit) tablet 2,000 unit PO DAILY 05/21/18 [History Last Taken 03/31/23] carvedilol 25 mg tablet 25 mg PO BID #180 tabs 05/15/22 [Rx Last Taken 03/31/23] dapagliflozin propanediol 10 mg tablet (Farxiga) 10 mg PO DAILY 11/25/22 [History Last Taken 03/31/23] atorvastatin 20 mg tablet 20 mg PO DAILY #90 tabs 02/06/23 [Rx Last Taken 03/30/23] amlodipine 5 mg tablet 5 mg PO DAILY #90 tabs 02/23/23 [Rx Last Taken 03/31/23] apixaban 5 mg tablet (Eliquis) 5 mg PO BID #180 tabs 03/10/23 [Rx Last Taken 03/31/23] sulfamethoxazole 800 mg-trimethoprim 160 mg tablet (Bactrim DS) 1 tab PO BID 10 days #20 tabs 03/26/23 [Rx Last Taken 03/31/23] levothyroxine 150 mcg tablet 150 mcg PO DAILY 03/31/23 [History Last Taken 03/31/23] Allergy/AdvReac Type Severity Reaction Status Date / Time Penicillins AdvReac Severe Hives Verified 03/31/23 12:00 Family History Father CAD (coronary artery disease) Mother CAD (coronary artery disease) Thyroid disorder Sister Thyroid cancer Grandmother Diabetes Grandfather Alcoholism Surgical History History of aortic valve replacement with bioprosthetic valve (~01/19/18) History of cardiac catheterization History of carpal tunnel surgery History of gastric bypass History of heart surgery (~2017) History of knee surgery History of tricuspid valve repair (~01/19/18) S/P aortic valve replacement Social History (Updated 03/31/23 @ 16:[address] Noemí Vela MD) Smoking Status: Current every day smoker tobacco type: cigars per week: 21 alcohol intake: current alcohol intake frequency: holidays/special occasions only substance use type: does not use caffeine: Yes Type: coffee what type of physical activity do you participate in: none seatbelt use: always do you feel safe at home: Yes ROS ROS Narrative Admission Review of Systems: CONSTITUTIONAL: No weight loss, fever, chills, + weakness or fatigue. HEENT: + Lightheaded. Eyes: No visual loss, blurred vision, double vision or yellow sclerae. Ears, Nose, Throat: No hearing loss, sneezing, congestion, runny nose or sore throat. SKIN: No rash or itching, lesions, wounds. CARDIOVASCULAR: No chest pain, chest pressure or chest discomfort, palpitations, edema, orthopnea, syncopal events. RESPIRATORY: + Shortness of breath, cough without marked sputum. No wheezing, hemoptysis. GASTROINTESTINAL: No anorexia, nausea, vomiting or diarrhea, abdominal pain, melena, BRBPR. GENITOURINARY: No dysuria, frequency, urgency or retention. NEUROLOGICAL: + Lightheadedness, dizziness. No headache, syncope, paralysis, ataxia, numbness or tingling in the extremities, new focal weakness, change in bowel or bladder control, seizure. MUSCULOSKELETAL: + muscle, back pain, joint pain or stiffness. HEMATOLOGIC: + anemia, no overt history of bleeding, easy bruising. LYMPHATICS: No enlarged nodes. No history of splenectomy. PSYCHIATRIC: No history of depression or anxiety. ENDOCRINOLOGIC: No reports of sweating, cold or heat intolerance. No polyuria or polydipsia. ALLERGIES: + History of hives. Vital Signs Vital Signs Vital Signs: 03/31/23 12:00 03/31/23 13:08 03/31/23 13:09 Temperature 98 F Temperature Source Temporal Pulse Rate 67 65 Respiratory Rate 16 20 H Respiratory Effort Normal Non-Labored Respiratory Depth Normal Respiratory Pattern Normal Blood Pressure 151/89 H 153/89 H Blood Pressure Mean 109 110 Pulse Ox 94 88 Oxygen Delivery Method Room Air Room Air Room Air Oxygen Flow Rate (L/min) 03/31/23 13:10 03/31/23 14:38 03/31/23 14:38 Temperature Temperature Source Pulse Rate 63 Respiratory Rate 17 Respiratory Effort Respiratory Depth Respiratory Pattern Normal Blood Pressure Blood Pressure Mean Pulse Ox 93 93 Oxygen Delivery Method Nasal Cannula Nasal Cannula Oxygen Flow Rate (L/min) 2 2 Weight Weight: 216 lb 0.848 oz Body Mass Index (BMI) 26.3 Physical Exam Narrative Physical Examination: General: Awake, alert, oriented x 3 and cooperative, seated upright in the ED bed in no apparent distress, fatigued appearing. Skin: Normal color, normal turgor, no icterus, no cyanosis except occasional staged ecchymoses, recent left buttock I&D, resolving. HEENT: AT/NC, EOMI, PERRLA, mildly dry MM, no carotid bruits or JVD noted. Lungs: Diminished, greater bases, bilaterally coarse, right greater than left, worse base, no evidence of any distress, no current wheezing. Heart: Regular rate and rhythm; no gallop, rub audible, + SM. Abdomen: Soft, NTTP, ND, mildly hyperactive BS, no HSM. Extremities: No cyanosis, clubbing, or edema. Neurological: Patient awake, alert, oriented as noted, cognitive function intact; pupils equally reactive to light and accommodation, cranial nerves grossly normal, moving all 4 extremities, strength severely globally decreased secondary to acute presentation and underlying comorbidities. Psychiatric: Affect appears flat, fatigued, ill-appearing, no acute evidence of depressive or anxiety feelings. Results Lab / Micro Data 03/31/23 13:45 03/31/23 13:45 Labs: Laboratory Results - last 24 hr 03/31/23 13:45: WBC 4.6, RBC 2.81 L, Hgb 8.9 L, Hct 30.8 L, MCV 109.6 H, MCH 31.7, MCHC 28.9 L, RDW Std Deviation 67.3 H, RDW Coeff of Hugo 17.0 H, Plt Count 179, MPV 9.5, Immature Gran % (Auto) 0.200, Neut % (Auto) 68.8, Lymph % (Auto) 19.2, [place] % (Auto) 9.7, Eos % (Auto) 1.7, Baso % (Auto) 0.4, Absolute Neuts (auto) 3.2, Absolute Lymphs (auto) 0.89, Nucleated RBC % 0, Differential Comment SCANNED, Anisocytosis 2+, Microcytosis 1+, Macrocytosis 1+, Sodium 138, Potassium 6.9 H*, Chloride 117 H, Carbon Dioxide 20.0 L, Anion Gap 1 L, BUN 45 H, Creatinine 2.97 H, Estim Creat Clear Calc 29.63, Est GFR (MDRD) Af Amer 27 L, Est GFR (MDRD) Non-Af 23 L, BUN/Creatinine Ratio 15.2, Glucose 84, Calcium 8.8, B-Natriuretic Peptide 459.6 H Assessment & Plan Assessment/Plan (1) Community acquired pneumonia: PLAN: Plan The patient is a 68 y/o M w/ PMHx: CKD stage III unclear subtype based on GFT trending, Hx CVA, Hx retinal embolism, GERD w/ Hx gastric ulcer/GI bleed, Chronic anemia/Fe deficiency anemia, Valvular Heart Disease w/ Hx Aortic valve endocarditis s/p AVR bioprosthetic and TV repair, CAD, PAF, HTN, HLD, Hypothyroidism, Hx Sick Sinus Syndrome s/p pacemaker status, Hypothyroidism, Tobacco use who presents to the [facility] ED on 03/31/2023 with history of shortness of breath, lightheadedness and dizziness with recently noted anemia with workup ongoing outpatient but given symptomatic prompted ED evaluation. He denies dark stools. #1. Acute hypoxia secondary to RLL Pneumonia: CXR in the ED w/ concern for right lower lobe pneumonia. Will maintain on oxygen with wean as tolerated to room air, continue ATC budesonide, PRN albuterol, maintained on IV Rocephin and Azithromycin, HOB, IS parameters w/ pending sputum cultures, full respiratory viral panel and urine antigens. #2. Acute Symptomatic Anemia on Chronic/Fe deficiency anemia with concern possible GI bleed w/ previous history: Admission hemoglobin 8.9, previous to this 03/25/2023 hemoglobin 9.5 and prior to this 11/17/2022 hemoglobin 14.5 reportedly having this also worked up outpatient, will maintain on IVFs, will obtain serial H+H, given symptomatic presentation will initiate type and cross and administer 1 unit PRBC, allow clears only at this time with n.p.o. status after midnight, maintain on IV PPI, guaiac requested, holding 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 therapy. If + guiac would plan to involve gastroenterology to be cautious. #3. Acute kidney injury on CKD stage III unclear subtype based on GFT trending: Secondary to possible medication as well as acute presumed blood loss anemia with possible transient hypoperfusion. Admission BUN/Cr 45/2.97, prior baseline creatinine noted to be primarily 1.8-2.0 however does appear to have vacillated, most recent prior 11/17/2022 creatinine 1.97. Will hydrate, hold nephrotoxic medications and repeat chemistry in AM. If no improvement would plan FeNa assessment. If worsening, low threshold to involve Nephrology. Given bactrim suspected partially mediated hepatic profile ordered also. #4. Acute hyperkalemia: Patient with recent DS Bactrim for left buttock abscess started on 03/26/2023 suspected likely at least partial etiology for hyperkalemia which will be stopped. Admission potassium 6.9, no evidence of hemolysis noted on lab review, as noted initiated in the ED on hyperkalemic treatment, will maintain on telemetry monitoring, administer Kayexalate dose x 1 now, continue to cycle BMP closely and if remains elevated will redose with albuterol, insulin with dextrose, calcium gluconate, IV fluids and repeat dose of Kayexalate if necessary. Given bactrim suspected partially mediated hepatic profile ordered also. #5. Recent anaerobic cocci/gram-negative jaycee left buttock abscess: Patient with surgery visit evaluation 04/15 noted in the system, history of previous abscesses in that region with onset 03/25/2023 clear/yellow drainage with no fever with I&D performed in the office with cavity packed with 1/2 inch iodoform packing with pressure dressing with gauze and ABD padding with recommended packing removal today following and continued sitz bath's, dressings until drainage stops and Bactrim double strength regimen twice daily for 10 days. 03/26/2023 cultures with no growth aerobically however anaerobic culture notes anaerobic cocci and gram-negative jaycee preliminary growth with further studies reported to follow. Bactrim therapy is likely at least a partial etiology for patient's acute kidney injury as well as hyperkalemia given no other changes noted. Will continue dressing changes, wound RN consultation, stop Bactrim and at this time will transition to IV Rocephin in interim given concurrent concern for pneumonia. #6. Valvular heart disease with history of previous endocarditis: Patient status post previous AV replacement with endocarditis history as noted, also status post TV repair, most recent echocardiogram noted 11/20/2020 with normal LV systolic function, EF 60%, moderate concentric LVH, LA moderately enlarged, RA mildly enlarged, mild MVI, status post TV repair evident, mild transvalvular insufficiency of the tricuspid valve, aortic valve not well-visualized however upon 3D imaging assessment appears to have stable bioprosthetic AV apparatus in place, mild transvalvular insufficiency of the aortic valve, transmitral diastolic flow velocities suggestive of diastolic dysfunction. Encouraged continued outpatient follow-up with cardiology. #7. PAF: As noted given presentation we will temporally hold apixaban regimen pending further evaluation, hypertensive regimen however given recent history of symptomatic anemia low threshold to hold if needed. #8. History CVA: Given presentation as noted holding apixaban, will continue Coreg regimen however given history of symptomatic anemia low threshold to temporally hold if needed. #9. History sick sinus syndrome: Status post pacemaker status, encourage continued outpatient follow-up with cardiology. #10. Hypertension: Will cautiously continue patient home amlodipine as well as Coreg but given symptomatic anemia will obtain orthostatics and low threshold to hold, IV hydralazine if needed. #11. Hyperlipidemia: We will continue patient on statin therapy. #12. Tobacco Abuse: Encouraged cessation, inpatient consultation per RT, NR if desired. #13. Hypothyroidism: We will continue patient on levothyroxine regimen. #14. GERD w/ prior GI bleed component as noted above: As noted will maintain on IV PPI. #15. DVT prophylaxis: SCDs, temporarily holding eliquis as noted given unclear etiology for anemia. #16. CODE status: Patient KELLI is his Sister Clifford and living will is currently in place. Discussed CODE status at length including difference between FULL code, DNR-CCA and DNR-CC status. Following discussions about the differences in these status, requested Full Code status. Advanced Care Planning Face to Face Time: 16 minutes. Charges/Coding Visit Charges Inpatient E&M: 04795 Init Hosp L3 Procedures Hospitalists Procedures: 61964 Advncd Care Plan 30 Min
[2023-03-31] MEDS: Ceftriaxone 1 GM/50 ML BAG IV (15:43)
[2023-03-31] MEDS: 0.9% Normal Saline (1000mL) 1,000 ML 999 ML IV (15:43)
[2023-03-31] MEDS: Azithromycin 500 MG in Dextrose 5%-Water (250mL Bag) 250 ML 250 MG IV (16:15)
[2023-03-31 17:09] LABS: AST(SGOT) 17 U/L (15-37); Alanine Aminotransfer ALT/SGPT 13 U/L (16-61); Albumin, Serum 2.9 g/dL (3.2-5.0); Alkaline Phosphatase 190 U/L (45-117); Globulin 4.4 g/dL (2.2-4.2); Magnesium 2.5 mg/dL (1.6-2.6); Protein, Total 7.3 g/dL (6.4-8.2)
[2023-03-31] MEDS: 0.9% Normal Saline (1000mL) 1,000 ML 100 ML IV (18:51)
[2023-03-31 19:05] LABS: Hematocrit 29.3 % (40-54); Hemoglobin 8.7 g/dL (13.0-16.5)
[2023-03-31 19:41] LABS: Anion Gap 1 (5-15); BUN 44 mg/dL (7-18); BUN/Creat Ratio 15.6 RATIO (10-20); Calcium,Total 8.4 mg/dL (8.5-10.1); Chloride 117 mmol/L (98-107); Creatinine, Serum 2.82 mg/dL (0.70-1.30); EST Glomerular Filtration Rate 24 mL/min (>60); Est Glom Filt Rate - Afr Amer 29 mL/min (>60); Estimated Creatinine Clearance 31.21 ml/min; Glucose 81 mg/dL (74-106); Potassium 6.1 mmol/L (3.5-5.1); Sodium Level 138 mmol/L (136-145)
[2023-03-31] MEDS: Pantoprazole Sodium 40 MG in 0.9% Normal Saline (100mL MB+) 100 ML 330 MG IV (19:45)
[2023-03-31] MEDS: Sodium Polystyrene Sulfonate 15 GM/60 ML UDC PO (20:28)
[2023-03-31 22:22] LABS: Anion Gap 3 (5-15); BUN 44 mg/dL (7-18); BUN/Creat Ratio 15.3 RATIO (10-20); Calcium,Total 8.6 mg/dL (8.5-10.1); Chloride 117 mmol/L (98-107); Creatinine, Serum 2.87 mg/dL (0.70-1.30); EST Glomerular Filtration Rate 24 mL/min (>60); Est Glom Filt Rate - Afr Amer 28 mL/min (>60); Estimated Creatinine Clearance 30.66 ml/min; Glucose 90 mg/dL (74-106); Potassium 6.5 mmol/L (3.5-5.1); Sodium Level 138 mmol/L (136-145)
--- NOTE | 2023-03-31 23:18 | EKG12_ITS ---
Test Reason : SOB Blood Pressure : / mmHG Vent. Rate : 062 BPM Atrial Rate : 062 BPM P-R Int : 166 ms QRS Dur : 188 ms QT Int : 470 ms P-R-T Axes : 063 -84 093 degrees QTc Int : 477 ms AV dual-paced rhythm Abnormal ECG Confirmed by EVIN ZAMORA, SANDRA ([id number]), senior editor LEONOR WIN ([id number]) on 04/01/2023 9:12:24 AM Referred By: Confirmed By:SANDRA CLEARY MD
[2023-03-31] MEDS: Carvedilol 25 MG Tablet PO (23:30)
[2023-03-31] MEDS: Atorvastatin Calcium 20 MG Tablet PO (23:30)
[2023-04-01] VITALS (11 sets, daily range): BP systolic 126–166; BP diastolic 61–87; PULSE 56–70; RESP 18–20; TEMP 36.1–36.8; O2SAT 90–97; BMI 25.9
[2023-04-01] MEDS: Calcium Gluconate IV 3 GM in Syringe 1 EACH IV (00:01)
[2023-04-01] MEDS: Sodium Polystyrene Sulfonate 15 GM/60 ML UDC 30 GM PO (00:06)
[2023-04-01] MEDS: Dextrose 50%-Water 25 GM/50 ML DISP.SYRIN IV (00:14)
[2023-04-01] MEDS: Insulin Lispro 10 UNIT in Syringe 0 ML 6 UNIT IV (00:17)
[2023-04-01 01:10] LABS: Bedside Glucose 85 mg/dL (74-106)
[2023-04-01 01:31] LABS: Hematocrit 30.8 % (40-54); Hemoglobin 9.2 g/dL (13.0-16.5)
[2023-04-01 01:54] LABS: Anion Gap 3 (5-15); BUN 43 mg/dL (7-18); BUN/Creat Ratio 14.7 RATIO (10-20); Calcium,Total 9.5 mg/dL (8.5-10.1); Chloride 118 mmol/L (98-107); Creatinine, Serum 2.93 mg/dL (0.70-1.30); EST Glomerular Filtration Rate 23 mL/min (>60); Est Glom Filt Rate - Afr Amer 28 mL/min (>60); Estimated Creatinine Clearance 30.04 ml/min; Glucose 89 mg/dL (74-106); Potassium 5.7 mmol/L (3.5-5.1); Sodium Level 140 mmol/L (136-145)
[2023-04-01] MEDS: Albuterol 2.5 MG/3 ML VIAL.NEB. 10 MG INHALATION (01:57)
[2023-04-01 04:12] LABS: Anion Gap 3 (5-15); BUN 41 mg/dL (7-18); Calcium,Total 8.6 mg/dL (8.5-10.1); Chloride 115 mmol/L (98-107); Creatinine, Serum 2.74 mg/dL (0.70-1.30); EST Glomerular Filtration Rate 25 mL/min (>60); Est Glom Filt Rate - Afr Amer 30 mL/min (>60); Estimated Creatinine Clearance 32.12 ml/min; Glucose 94 mg/dL (74-106); Potassium 5.6 mmol/L (3.5-5.1); Sodium Level 139 mmol/L (136-145)
[2023-04-01] MEDS: Levothyroxine 150 MCG Tablet PO (05:28)
[2023-04-01 06:23] LABS: Absolute Neutrophil Count 2.6 X10^3/uL (2.0-7.7); Basophil# 0.03 X10^3/uL; Basophil% 0.7 % (0-1); Eosinophil# 0.05 X10^3/uL; Eosinophils% 1.2 % (0-5); Hematocrit 30.9 % (40-54); Hemoglobin 9.4 g/dL (13.0-16.5); Lymphocyte % 28.2 % (19-41); Mean Corp Hgb Conc 30.4 g/dL (32-36); Mean Corpuscular Hgb 32.5 pg (27.0-32.0); Mean Corpuscular Volume 106.9 fL (80-94); Mean Platelet Vol. 9.4 fl (6.2-12.0); Monocyte# 0.37 X10^3/uL; Monocyte% 8.7 % (0-10); NRBC Flagged by Analyzer 0 % (0-5); Neutrophil # 2.59 X10^3/uL (2.7-7.7); POSITIVE MORPHOLOGY YES; Platelet Count 146 K/mm3 (150-450); RBC Distribution Width CV 18.1 % (11.6-14.6); RBC Distribution Width SD 69.8 fl (35.1-43.9); Red Blood Count 2.89 M/mm3 (4.6-6.2); White Blood Count 4.3 K/mm3 (4.4-11.0)
[2023-04-01 06:27] LABS: Differential Indicated SCAN CRITERIA MET
[2023-04-01 06:54] LABS: ALB/GLOB Ratio 0.7 RATIO (0.9-2.4); AST(SGOT) 17 U/L (15-37); Alanine Aminotransfer ALT/SGPT 13 U/L (16-61); Albumin, Serum 2.8 g/dL (3.2-5.0); Alkaline Phosphatase 178 U/L (45-117); Anion Gap 4 (5-15); BUN 39 mg/dL (7-18); BUN/Creat Ratio 14.4 RATIO (10-20); Calcium,Total 8.5 mg/dL (8.5-10.1); Chloride 115 mmol/L (98-107); EST Glomerular Filtration Rate 25 mL/min (>60); Est Glom Filt Rate - Afr Amer 31 mL/min (>60); Estimated Creatinine Clearance 32.59 ml/min; Globulin 4.2 g/dL (2.2-4.2); Glucose 90 mg/dL (74-106); Potassium 5.5 mmol/L (3.5-5.1); Sodium Level 140 mmol/L (136-145)
[2023-04-01] MEDS: Sodium Bicarbonate 150 MEQ in Dextrose 5%-Water (1000mL Bag) 1,000 ML 250 MEQ IV ×2 (06:55)
--- NOTE | 2023-04-01 07:54 | US_ITS ---
STUDY: ABDOMINAL ULTRASOUND - RIGHT UPPER QUADRANT REASON FOR VISIT: Male, 68 years old possible cirrhosis TECHNIQUE: Ultrasound evaluation of the right upper quadrant was performed with real-time and static wilkinson-scale imaging. TECHNICAL QUALITY: Adequate. COMPARISON: None. FINDINGS: Liver: The liver measures 17.3 cm. There is a heterogeneous echogenicity of the liver. The bile ducts are within normal limits. There is hepatic color flow. The direction of portal flow is hepatopetal. There is no demonstrated mass lesion. Gallbladder: Normal distended gallbladder. The gallbladder wall measures 2.0 mm. There is a negative sonographic Kruger''s sign. There is no pericholecystic fluid. There are multiple echogenic structures within the gallbladder, consistent with multiple small gallstones. Common Bile Duct (C.B.D.): The common bile duct measures 7 mm. Pancreas: Normal size of the head, body and tail of the pancreas. There is normal echogenicity of the pancreas. There is no demonstrated pancreatic mass or cyst. Right Kidney: Normal size of the right kidney. The right kidney measures 10.6 cm x 5.6 cm x 5.3 cm. Normal renal cortex. The right cortex measures 2.4 cm. There is no demonstrated renal mass or cyst. There is no right hydronephrosis. US/Liver IMPRESSION: Heterogeneous appearance of the liver. Multiple small gallstones are seen in the gallbladder. Electronically Signed: Yosvany Carlos MD at 15:15 EST ,
[2023-04-01 09:12] LABS: Anisocytosis 2+
[2023-04-01] MEDS: Budesonide Respules 0.5 MG/2 ML AMPUL.NEB. INHALATION ×2 (10:01→20:14)
[2023-04-01] MEDS: Carvedilol 25 MG Tablet PO ×2 (10:28→21:13)
[2023-04-01] MEDS: amLODIPine 5 MG Tablet PO (10:28)
[2023-04-01] MEDS: Pantoprazole Sodium 40 MG in 0.9% Normal Saline (100mL MB+) 100 ML 330 MG IV ×2 (10:29→21:13)
[2023-04-01] MEDS: 0.9% Saline Lock 10 ML Syringe IV (10:29)
[2023-04-01] MEDS: Ceftriaxone 1 GM/50 ML BAG IV (11:32)
--- NOTE | 2023-04-01 11:35 | CASEMGMT ---
JORGE SALAMANCA Face to Face with patient for initial transition planning/care coordination assessment. RN CM introduced self and role at [facility]. Patient sitting in chair, alert and oriented, sister at bedside. Patient willing to participate in assessment and is able to answer all questions appropriately. Care providers, pharmacy, and demographics verified. Patient wishes to discharge home, denies need for home health at this time. Patient states he has no further needs or concerns at this time. CM to follow for discharge planning needs that may arise. PCP: Alisa Specialists: [facility], soil specialist; James, residential mental health worker Preferred Pharmacy: [facility] Insurance: [facility], [facility] Prescription Benefit: yes Living Will/HPOA: yes, sister Clifford Rios LNOK: sister Living Arrangements: Patient lives alone in a single story home with no steps to enter the home. Patient is independent at home. Transportation: self, sister DME/HHC: Patient denies DME in the home. No previous HHC or SNF. Will monitor for home oxygen at discharge. Patient prefers [employer] for DME. Disposition Plan: Patient to discharge home with family support and follow-up plans in place. Will monitor for home oxygen. Kathleen VEE, RN, CM
[2023-04-01] MEDS: Azithromycin 500 MG in Dextrose 5%-Water (250mL Bag) 250 ML 250 MG IV (12:45)
--- NOTE | 2023-04-01 14:13 | PCM.CONS.R ---
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, patient is status post aortic valve replacement bioprosthetic and TV repair (last echo October 2020: Normal LV systolic function, EF 60%, moderate concentric LVH, LA moderately enlarged, status post TV repair evident, aortic valve not well-visualized however 3D imaging assessment appears to have stable bioprosthetic AV apparatus in place), coronary artery disease, PAF, hypertension, hyperlipidemia, hypothyroidism, iron deficiency anemia on oral iron (SPEP negative in past), history of Elmer-en-Y gastric bypass who presented to the emergency room yesterday with complaints of dyspnea and feeling unwell. Workup in the emergency room concerning for pneumonia but also patient noted to be hyperkalemic therefore admitted for further evaluation and treatment. Nephrology consulted for IRINA and hyperkalemia. Patient is followed by Dr. Ramirez in the [facility]. He was last seen in November 2022, at that time renal function stable and at baseline, potassium 5.1, creatinine 1.9 and urine protein creatinine ratio had improved from 5.5 g to 2 g after starting Farxiga. Patient does have baseline serum creatinine of around 1.8 to 2.2 mg/dL. Patient also has a history of chronic mild hyperkalemia, no longer on MICHAEL inhibitor or ARB's. He had been on Lokelma in past but due to cost is no longer taking. On admission potassium was 6.9 but has improved and is currently 5.5. Patient received multiple doses of Kayexalate, insulin, calcium, D50, bicarb and was also on bicarb drip. He is no longer on bicarb drip. He is n.p.o. for ultrasound. Once able to have diet recommend low potassium diet restrictions. Reviewed with patient today foods that are potassium rich that are recommended to avoid. Possibly hyperkalemia from Bactrim and recent dietary indiscretion. IRINA possibly from infection, recent antibiotics with poor oral intake. Creatinine was 2.9 on admission and is now 2.7. Volume status appears acceptable near euvolemic. Patient does not need IV fluids at this time. GI has been consulted for acute anemia and +stool for occult blood. Hemoglobin 8.9 on admission and is currently 9.4. For pneumonia patient is on antibiotics, azithromycin and ceftriaxone. Patient has history of hypertension and blood pressures acceptable on amlodipine and carvedilol. Further orders forthcoming as hospitalization evolves, thank you for allowing us to participate in care of Mr. White. 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 Patient developed Bartonella infection, endocarditis status post aortic valve replacement bioprosthetic and TV repair, coronary artery disease, PAF, hypertension, hyperlipidemia, hypothyroidism, iron deficiency anemia on oral iron (SPEP negative in past), history of Elmer-en-Y gastric bypass who presented to the emergency room yesterday with complaints of dyspnea and feeling unwell. Workup in the emergency room concerning for pneumonia but also patient noted to be hyperkalemic therefore admitted for further evaluation and treatment. Nephrology consulted for IRINA and hyperkalemia. Patient has history of CKD and is followed by Dr. Ramirez. Patient was last seen in the office in November 2022. At that time potassium 5.1, creatinine 1.9 and urine protein creatinine ratio had improved from 5.5 g to 2 g after starting Farxiga. Patient reports he was recently started on Bactrim for gluteal cyst. Denies any vomiting but reports has had poor appetite over the past few weeks. Denies any diarrhea. Denies any urinary habitus changes. [facility] Medical History (Updated 04/01/23 @ 14:23 by FAYE Huang) Abnormal EKG Abscess of left buttock Acute bronchitis, unspecified Acute CVA (cerebrovascular accident) (10/27/17) Acute stomach ulcer Anemia Anemia, iron deficiency Aortic stenosis Aortic valve endocarditis (~12/2017) Atherosclerotic heart disease of red devil coronary artery without angina pectoris Atrial fibrillation Atrioventricular block, type I Bruit of left carotid artery Cardiology follow-up encounter Carpal tunnel syndrome Edema of left lower extremity High cholesterol History of echocardiogram History of GI bleed History of stroke History of ulceration HTN (hypertension) Hyperlipidemia Hyperthyroidism Hypothyroidism ICD (implantable cardioverter-defibrillator) in place Kidney disease Kidney failure 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 ligation 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 of 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 Mild atherosclerosis of both carotid arteries Mitral valve insufficiency and aortic valve insufficiency Nonrheumatic tricuspid valve regurgitation Open wound Pacemaker PAF (paroxysmal atrial fibrillation) Premature ventricular contraction Presence of biventricular cardiac pacemaker Presence of permanent cardiac pacemaker (~01/19/18) Retinal embolus Sick sinus syndrome Sinus bradycardia Smoker SOB (shortness of breath) Stroke Thyroid disease TIA (transient ischemic attack) Tobacco abuse Ulcer Ventricular hypertrophy Vitamin deficiency Wears dentures Home Medications cyanocobalamin (vitamin B-12) 500 mcg tablet 500 mcg PO QDAY SUPPLEMENT 03/27/17 [History Last Taken 03/31/23] acetaminophen 500 mg tablet 1,000 mg PO Q4H PRN Pain 10/27/17 [History Last Taken 03/30/23] pantoprazole 20 mg tablet,delayed release 40 mg PO BID 03/15/18 [History Last Taken 03/31/23] cholecalciferol (vitamin D3) 50 mcg (2,000 unit) tablet 2,000 unit PO DAILY 05/21/18 [History Last Taken 03/31/23] carvedilol 25 mg tablet 25 mg PO BID #180 tabs 05/15/22 [Rx Last Taken 03/31/23] dapagliflozin propanediol 10 mg tablet (Farxiga) 10 mg PO DAILY 11/25/22 [History Last Taken 03/31/23] atorvastatin 20 mg tablet 20 mg PO DAILY #90 tabs 02/06/23 [Rx Last Taken 03/30/23] amlodipine 5 mg tablet 5 mg PO DAILY #90 tabs 02/23/23 [Rx Last Taken 03/31/23] apixaban 5 mg tablet (Eliquis) 5 mg PO BID #180 tabs 03/10/23 [Rx Last Taken 03/31/23] sulfamethoxazole 800 mg-trimethoprim 160 mg tablet (Bactrim DS) 1 tab PO BID 10 days #20 tabs 03/26/23 [Rx Last Taken 03/31/23] levothyroxine 150 mcg tablet 150 mcg PO DAILY 03/31/23 [History Last Taken 03/31/23] Allergy/AdvReac Type Severity Reaction Status Date / Time Penicillins AdvReac Severe Hives Verified 03/31/23 12:00 Family History Father CAD (coronary artery disease) Mother CAD (coronary artery disease) Thyroid disorder Sister Thyroid cancer Grandmother Diabetes Grandfather Alcoholism Surgical History History of aortic valve replacement with bioprosthetic valve (~01/19/18) History of cardiac catheterization History of carpal tunnel surgery History of gastric bypass History of heart surgery (~2017) History of knee surgery History of tricuspid valve repair (~01/19/18) S/P aortic valve replacement Social History (Updated 03/31/23 @ 16:[address] Noemí Vela MD) Smoking Status: Current every day smoker tobacco type: cigars per week: 21 alcohol intake: current alcohol intake frequency: holidays/special occasions only substance use type: does not use caffeine: Yes Type: coffee what type of physical activity do you participate in: none seatbelt use: always do you feel safe at home: Yes ROS ROS Narrative As in HPI and past medical history Physical Exam Narrative Alert and orient x 3, no apparent distress S1, S2, RRR Lung sounds clear anteriorly, diminished breath sounds posterior bases. No rhonchi or rales Abdomen soft, nontender No pitting edema Lab / Micro Data 04/01/23 05:45 04/01/23 05:45 Labs: Laboratory Results - last 24 hr 03/31/23 13:45: Magnesium 2.5, Total Bilirubin 0.40, Direct Bilirubin 0.20, AST 17, ALT 13 L, Alkaline Phosphatase 190 H, B-Natriuretic Peptide 459.6 H, Total Protein 7.3, Albumin 2.9 L, Globulin 4.4 H 03/31/23 16:40: Blood Type A POSITIVE, Antibody Screen NEGATIVE, Crossmatch See Detail 03/31/23 18:50: Hgb 8.7 L, Hct 29.3 L, Sodium 138, Potassium 6.1 H*, Chloride 117 H, Carbon Dioxide 20.0 L, Anion Gap 1 L, BUN 44 H, Creatinine 2.82 H, Estim Creat Clear Calc 31.21, Est GFR (MDRD) Af Amer 29 L, Est GFR (MDRD) Non-Af 24 L, BUN/Creatinine Ratio 15.6, Glucose 81, Calcium 8.4 L 03/31/23 21:45: Sodium 138, Potassium 6.5 H*, Chloride 117 H, Carbon Dioxide 18.0 L, Anion Gap 3 L, BUN 44 H, Creatinine 2.87 H, Estim Creat Clear Calc 30.66, Est GFR (MDRD) Af Amer 28 L, Est GFR (MDRD) Non-Af 24 L, BUN/Creatinine Ratio 15.3, Glucose 90, Calcium 8.6 04/01/23 00:10: POC Glucose 85 04/01/23 01:20: Hgb 9.2 L, Hct 30.8 L, Sodium 140, Potassium 5.7 H, Chloride 118 H, Carbon Dioxide 19.0 L, Anion Gap 3 L, BUN 43 H, Creatinine 2.93 H, Estim Creat Clear Calc 30.04, Est GFR (MDRD) Af Amer 28 L, Est GFR (MDRD) Non-Af 23 L, BUN/Creatinine Ratio 14.7, Glucose 89, Calcium 9.5 04/01/23 03:29: Sodium 139, Potassium 5.6 H, Chloride 115 H, Carbon Dioxide 21.0, Anion Gap 3 L, BUN 41 H, Creatinine 2.74 H, Estim Creat Clear Calc 32.12, Est GFR (MDRD) Af Amer 30 L, Est GFR (MDRD) Non-Af 25 L, BUN/Creatinine Ratio 15.0, Glucose 94, Calcium 8.6 04/01/23 05:45: WBC 4.3 L, RBC 2.89 L, Hgb 9.4 L, Hct 30.9 L, MCV 106.9 H, MCH 32.5 H, MCHC 30.4 L D, RDW Std Deviation 69.8 H, RDW Coeff of Hugo 18.1 H, Plt Count 146 L, MPV 9.4, Immature Gran % (Auto) 0.200, Neut % (Auto) 61.0, Lymph % (Auto) 28.2, [place] % (Auto) 8.7, Eos % (Auto) 1.2, Baso % (Auto) 0.7, Absolute Neuts (auto) 2.6, Absolute Lymphs (auto) 1.20, Nucleated RBC % 0, Anisocytosis 2+, Sodium 140, Potassium 5.5 H, Chloride 115 H, Carbon Dioxide 21.0, Anion Gap 4 L, BUN 39 H, Creatinine 2.70 H, Estim Creat Clear Calc 32.59, Est GFR (MDRD) Af Amer 31 L, Est GFR (MDRD) Non-Af 25 L, BUN/Creatinine Ratio 14.4, Glucose 90, Calcium 8.5, Total Bilirubin 0.40, AST 17, ALT 13 L, Alkaline Phosphatase 178 H, Total Protein 7.0, Albumin 2.8 L, Globulin 4.2, Albumin/Globulin Ratio 0.7 L Micro: Microbiology 04/01/23 05:40 Mucosa - Nasopharyngeal Respiratory Panel (PCR) - Final 03/31/23 21:15 Urine, Random Legionella Antigen - Final 03/31/23 21:15 Urine, Random Streptococcus pneumoniae Antigen (M - Final 03/31/23 21:15 Stool Stool Occult Blood (PAWAN) - Final Occult Blood Positive 03/31/23 14:50 Mucosa - Nose SARS-CoV-2, Influenza & RSV (PCR) - Final Imagaing Radiology Impression Chest X-Ray 03/31/23 13:26 IMPRESSION: Right lower lobe infiltrate and blunting of the right costophrenic angle. Electronically Signed: Yosvany Carlos MD at 14:49 EST ,
--- NOTE | 2023-04-01 14:39 | WOUNDNOTE ---
wound photo: left upper buttock
--- NOTE | 2023-04-01 14:40 | WOUNDNOTE ---
Was asked to see patient for recent I&D to the right buttock. patient states he had the area drained in 03/26/23. states it was packed for the day and then the packing was removed. there is currently no drainage noted. some mild induration still noted. cleansed site with soap and water. can leave NEELIMA for now. patient states he has not been covering the area for a few days now. states it feeling much better. will monitor while in hospital.
--- NOTE | 2023-04-01 15:04 | CHAPLAIN ---
Type of Pastoral Visit _x__ Initial Visit ___ Follow-up Visit ___ On-call Visit ___ General Patient Visit ___ Spiritual Assessment ___ Family Conference ___ Bereavement ___ Rapid Response ___ Code Blue ___ Other (describe below) Pastoral Care Referral From _x__ Patient ___ Family ___ Nurse ___ Physician ___ [place] ___ Color Receiver ___ Other (describe below) Sacrament/Intervention _x__ Active listening ___ Anointing ___ Latter-Day ___ Bereavement ___ Communion ___ Velma exploration ___ _x__ Life review _x__ Prayer ___ Reconciliation ___ Sacrament of Sick _x__ Supportive presence ___ Wedding ___ Other (describe below) Pastoral Comments patient is welcoming and talkative; pt has had previous experience in a hospital that lasted 70 days and he is expecting this admission to be much shorter; pt has family members that have or continue to work for this hospital and he recounts that for this conditioner tumbler; pt is content with his care per his report; pt talks about his interests in life; a prayer is offered
--- NOTE | 2023-04-01 16:25 | EX.PCM.CON.G ---
HPI Consult Data Date of Consult: 04/01/23 HPI Narrative Reason for Consultation: Anemia HPI Narrative: DAKOTA RIVERA, is a 68 with past medical history of morbid obesity of more than 500 pounds status post Elmer-en-Y gastric bypass back in 1995. He presented to [facility] with worsening of fatigue, shortness of breath and was discovered to be hypoxic. 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 He also has a history ofSick Sinus Syndrome s/p pacemaker status, Hypothyroidism, Tobacco use who presents to the [facility] ED on 03/31/2023 with history of shortness of breath, lightheadedness and dizziness with recently noted anemia with workup ongoing outpatient but given symptomatic prompted ED evaluation. He denies dark stools. He notes he had ulceration back in 2018. He is also note recent mildly increased cough above his baseline over the last 2 weeks but nonproductive and his dyspnea is worse with exertion. He denies any recent upper respiratory type symptoms or fevers or chills. Workup in the ED included T98, heart rate 67, BP 151/89, respiratory rate 16, initially 94% on room air however desaturated to 88% on room air with improvement to 93% on 2 L nasal cannula, CBC with WBC 4.6, hemoglobin 8.9, MCV 109.6, platelet 179 without marked shift, BMP with potassium 6.9 not noted to be hemolyzed, chloride 117, carbon oxide 20, BUN/creatinine 45/2.97, BNP 459.6, chest x-ray with preliminary review with evidence of right lower lobe pneumonia. I was asked to see him due to worsening iron deficiency anemia. [facility] Medical History (Updated 04/01/23 @ 16:[address] Lindsey Friend, DO) Abnormal EKG Abscess of left buttock Acute bronchitis, unspecified Acute CVA (cerebrovascular accident) (10/27/17) Acute stomach ulcer Anemia Anemia, iron deficiency Aortic stenosis Aortic valve endocarditis (~12/2017) Atherosclerotic heart disease of [place] coronary artery without angina pectoris Atrial fibrillation Atrioventricular block, type I Bruit of left carotid artery Cardiology follow-up encounter Carpal tunnel syndrome Edema of left lower extremity High cholesterol History of echocardiogram History of GI bleed History of stroke History of ulceration HTN (hypertension) Hyperlipidemia Hyperthyroidism Hypothyroidism ICD (implantable cardioverter-defibrillator) in place Kidney disease Kidney failure 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 ligation 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 Mild atherosclerosis of both carotid arteries Mitral valve insufficiency and aortic valve insufficiency Nonrheumatic tricuspid valve regurgitation Open wound Pacemaker PAF (paroxysmal atrial fibrillation) Premature ventricular contraction Presence of biventricular cardiac pacemaker Presence of permanent cardiac pacemaker (~01/19/18) Retinal embolus Sick sinus syndrome Sinus bradycardia Smoker SOB (shortness of breath) Stroke Thyroid disease TIA (transient ischemic attack) Tobacco abuse Ulcer Ventricular hypertrophy Vitamin deficiency Wears dentures Home Medications cyanocobalamin (vitamin B-12) 500 mcg tablet 500 mcg PO QDAY SUPPLEMENT 03/27/17 [History Last Taken 03/31/23] acetaminophen 500 mg tablet 1,000 mg PO Q4H PRN Pain 10/27/17 [History Last Taken 03/30/23] pantoprazole 20 mg tablet,delayed release 40 mg PO BID 03/15/18 [History Last Taken 03/31/23] cholecalciferol (vitamin D3) 50 mcg (2,000 unit) tablet 2,000 unit PO DAILY 05/21/18 [History Last Taken 03/31/23] carvedilol 25 mg tablet 25 mg PO BID #180 tabs 05/15/22 [Rx Last Taken 03/31/23] dapagliflozin propanediol 10 mg tablet (Farxiga) 10 mg PO DAILY 11/25/22 [History Last Taken 03/31/23] atorvastatin 20 mg tablet 20 mg PO DAILY #90 tabs 02/06/23 [Rx Last Taken 03/30/23] amlodipine 5 mg tablet 5 mg PO DAILY #90 tabs 02/23/23 [Rx Last Taken 03/31/23] apixaban 5 mg tablet (Eliquis) 5 mg PO BID #180 tabs 03/10/23 [Rx Last Taken 03/31/23] sulfamethoxazole 800 mg-trimethoprim 160 mg tablet (Bactrim DS) 1 tab PO BID 10 days #20 tabs 03/26/23 [Rx Last Taken 03/31/23] levothyroxine 150 mcg tablet 150 mcg PO DAILY 03/31/23 [History Last Taken 03/31/23] Allergy/AdvReac Type Severity Reaction Status Date / Time Penicillins AdvReac Severe Hives Verified 03/31/23 12:00 Family History Father CAD (coronary artery disease) Mother CAD (coronary artery disease) Thyroid disorder Sister Thyroid cancer Grandmother Diabetes Grandfather Alcoholism Surgical History History of aortic valve replacement with bioprosthetic valve (~01/19/18) History of cardiac catheterization History of carpal tunnel surgery History of gastric bypass History of heart surgery (~2018) History of knee surgery History of tricuspid valve repair (~01/19/18) S/P aortic valve replacement Social History (Updated 03/31/23 @ 16:[address] Noemí Vela MD) Smoking Status: Current every day smoker tobacco type: cigars per week: 21 alcohol intake: current alcohol intake frequency: holidays/special occasions only substance use type: does not use caffeine: Yes Type: coffee what type of physical activity do you participate in: none seatbelt use: always do you feel safe at home: Yes ROS ROS Narrative Admission Review of Systems: CONSTITUTIONAL: No weight loss, fever, chills, + weakness or fatigue. HEENT: + Lightheaded. Eyes: No visual loss, blurred vision, double vision or yellow sclerae. Ears, Nose, Throat: No hearing loss, sneezing, congestion, runny nose or sore throat. SKIN: No rash or itching, lesions, wounds. CARDIOVASCULAR: No chest pain, chest pressure or chest discomfort, palpitations, edema, orthopnea, syncopal events. RESPIRATORY: + Shortness of breath, cough without marked sputum. No wheezing, hemoptysis. GASTROINTESTINAL: No anorexia, nausea, vomiting or diarrhea, abdominal pain, melena, BRBPR. GENITOURINARY: No dysuria, frequency, urgency or retention. NEUROLOGICAL: + Lightheadedness, dizziness. No headache, syncope, paralysis, ataxia, numbness or tingling in the extremities, new focal weakness, change in bowel or bladder control, seizure. MUSCULOSKELETAL: + muscle, back pain, joint pain or stiffness. HEMATOLOGIC: + anemia, no overt history of bleeding, easy bruising. LYMPHATICS: No enlarged nodes. No history of splenectomy. PSYCHIATRIC: No history of depression or anxiety. ENDOCRINOLOGIC: No reports of sweating, cold or heat intolerance. No polyuria or polydipsia. ALLERGIES: + History of hives. Physical Exam Narrative Alert and orient x 3, no apparent distress S1, S2, RRR Lung sounds clear anteriorly, diminished breath sounds posterior bases. No rhonchi or rales Abdomen soft, nontender No pitting edema Lab / Micro Data 04/01/23 05:45 04/01/23 05:45 Labs: Laboratory Results - last 24 hr 03/31/23 13:45: Magnesium 2.5, Total Bilirubin 0.40, Direct Bilirubin 0.20, AST 17, ALT 13 L, Alkaline Phosphatase 190 H, Total Protein 7.3, Albumin 2.9 L, Globulin 4.4 H 03/31/23 16:40: Blood Type A POSITIVE, Antibody Screen NEGATIVE, Crossmatch See Detail 03/31/23 18:50: Hgb 8.7 L, Hct 29.3 L, Sodium 138, Potassium 6.1 H*, Chloride 117 H, Carbon Dioxide 20.0 L, Anion Gap 1 L, BUN 44 H, Creatinine 2.82 H, Estim Creat Clear Calc 31.21, Est GFR (MDRD) Af Amer 29 L, Est GFR (MDRD) Non-Af 24 L, BUN/Creatinine Ratio 15.6, Glucose 81, Calcium 8.4 L 03/31/23 21:45: Sodium 138, Potassium 6.5 H*, Chloride 117 H, Carbon Dioxide 18.0 L, Anion Gap 3 L, BUN 44 H, Creatinine 2.87 H, Estim Creat Clear Calc 30.66, Est GFR (MDRD) Af Amer 28 L, Est GFR (MDRD) Non-Af 24 L, BUN/Creatinine Ratio 15.3, Glucose 90, Calcium 8.6 04/01/23 00:10: POC Glucose 85 04/01/23 01:20: Hgb 9.2 L, Hct 30.8 L, Sodium 140, Potassium 5.7 H, Chloride 118 H, Carbon Dioxide 19.0 L, Anion Gap 3 L, BUN 43 H, Creatinine 2.93 H, Estim Creat Clear Calc 30.04, Est GFR (MDRD) Af Amer 28 L, Est GFR (MDRD) Non-Af 23 L, BUN/Creatinine Ratio 14.7, Glucose 89, Calcium 9.5 04/01/23 03:29: Sodium 139, Potassium 5.6 H, Chloride 115 H, Carbon Dioxide 21.0, Anion Gap 3 L, BUN 41 H, Creatinine 2.74 H, Estim Creat Clear Calc 32.12, Est GFR (MDRD) Af Amer 30 L, Est GFR (MDRD) Non-Af 25 L, BUN/Creatinine Ratio 15.0, Glucose 94, Calcium 8.6 04/01/23 05:45: WBC 4.3 L, RBC 2.89 L, Hgb 9.4 L, Hct 30.9 L, MCV 106.9 H, MCH 32.5 H, MCHC 30.4 L D, RDW Std Deviation 69.8 H, RDW Coeff of Hugo 18.1 H, Plt Count 146 L, MPV 9.4, Immature Gran % (Auto) 0.200, Neut % (Auto) 61.0, Lymph % (Auto) 28.2, [place] % (Auto) 8.7, Eos % (Auto) 1.2, Baso % (Auto) 0.7, Absolute Neuts (auto) 2.6, Absolute Lymphs (auto) 1.20, Nucleated RBC % 0, Anisocytosis 2+, Sodium 140, Potassium 5.5 H, Chloride 115 H, Carbon Dioxide 21.0, Anion Gap 4 L, BUN 39 H, Creatinine 2.70 H, Estim Creat Clear Calc 32.59, Est GFR (MDRD) Af Amer 31 L, Est GFR (MDRD) Non-Af 25 L, BUN/Creatinine Ratio 14.4, Glucose 90, Calcium 8.5, Total Bilirubin 0.40, AST 17, ALT 13 L, Alkaline Phosphatase 178 H, Total Protein 7.0, Albumin 2.8 L, Globulin 4.2, Albumin/Globulin Ratio 0.7 L Micro: Microbiology 03/31/23 21:15 Sputum, Expectorated/Coughed Gram Stain - Final 04/01/23 05:40 Mucosa - Nasopharyngeal Respiratory Panel (PCR) - Final 03/31/23 21:15 Urine, Random Legionella Antigen - Final 03/31/23 21:15 Urine, Random Streptococcus pneumoniae Antigen (M - Final 03/31/23 21:15 Stool Stool Occult Blood (PAWAN) - Final Occult Blood Positive 03/31/23 14:50 Mucosa - Nose SARS-CoV-2, Influenza & RSV (PCR) - Final Imagaing Radiology Impression Chest X-Ray 03/31/23 13:26 IMPRESSION: Right lower lobe infiltrate and blunting of the right costophrenic angle. Electronically Signed: Yosvany Carlos MD at 14:49 EST , Liver Ultrasound 04/01/23 07:54 IMPRESSION: Heterogeneous appearance of the liver. Multiple small gallstones are seen in the gallbladder. Electronically Signed: Yosvany Carlos MD at 15:15 EST , Assessment & Plan Assessment/Plan (1) Community acquired pneumonia: QUALIFIERS: Lung location: unspecified part of lung Laterality: left Qualified Code(s): J18.9 - Pneumonia, unspecified organism PLAN: Plan The patient is a 68 y/o morbid obesity status post Elmer-en-Y gastric bypass, GERD w/ Hx of anastomotic gastric and jejunal ulcer/GI bleed, Chronic anemia/Fe deficiency anemia, who presents to the [facility] ED on 03/31/2023 with history of shortness of breath, lightheadedness and dizziness with recently noted anemia with workup ongoing outpatient but given symptomatic prompted ED evaluation. He denies dark stools. Acute Symptomatic Anemia on Chronic/Fe deficiency anemia with concern possible GI bleed w/ previous history: Admission hemoglobin 8.9, previous to this 03/25/2023 hemoglobin 9.5 and prior to this 11/17/2022 hemoglobin 14.5 reportedly having this also worked up outpatient. He does have a history of anastomotic ulcers and I think he would benefit from an upper endoscopy. However he does not want to get an upper or lower endoscopy at this time. I told him that there is a possibility with his pancytopenia or bicytopenia that he may have some underlying liver disease that may be contributing to his symptoms. I told him that in the setting of iron deficiency anemia is not normal to have thrombocytopenia unless you have some type of splenic sequestration secondary to chronic liver disease or bone marrow issue. Therefore recommend iron transfusions and outpatient capsule endoscopy. Further recommendation to follow that he has ultrasound of the right upper quadrant. Charges/Coding Visit Charges Inpatient E&M: 40681 Init Hosp L3
--- NOTE | 2023-04-01 17:15 | PCM.PN.HOSP ---
Reason for Visit Reason for Visit: Diagnoses Pneumonia, unspecified organism (03/31/23) Subjective Subjective Patient seen at bedside this morning. Sitting comfortably in bedside chair, conversing normally, no acute distress. Patient was breathing comfortably on 2 L nasal cannula, no increased work of breathing noted. Patient denies any shortness of breath at rest. States he has some mild cough with some shortness of breath on exertion. He denies any sputum production. He otherwise denies any fevers or chills. Denies any other pain or discomfort. No other acute concerns. Objective Data Objective Data Vital Signs: Vital Signs Temp Pulse Resp BP Pulse Ox O2 Del Method O2 Flow Rate 98 F 61 18 148/61 H 94 Room Air 3 04/01/23 15:20 04/01/23 15:20 04/01/23 15:20 04/01/23 15:20 04/01/23 15:20 04/01/23 15:30 04/01/23 10: Oxygen Flow Rate (L/min) 3 Oxygen Delivery Method Room Air Weight: 96.7 kg Body Mass Index (BMI) 25.9 Intake & Output: Intake and Output for Last 24 Hours 03/30/23 03/31/23 04/01/23 23:59 23:59 23:59 Intake Total 1826 / 1826 2805 / 2805 Balance 1826 / 1826 2805 / 2805 Lab / Micro Data 04/01/23 05:45 04/01/23 05:45 Labs: Laboratory Results - last 24 hr 03/31/23 16:40: Blood Type A POSITIVE, Antibody Screen NEGATIVE, Crossmatch See Detail 03/31/23 18:50: Hgb 8.7 L, Hct 29.3 L, Sodium 138, Potassium 6.1 H*, Chloride 117 H, Carbon Dioxide 20.0 L, Anion Gap 1 L, BUN 44 H, Creatinine 2.82 H, Estim Creat Clear Calc 31.21, Est GFR (MDRD) Af Amer 29 L, Est GFR (MDRD) Non-Af 24 L, BUN/Creatinine Ratio 15.6, Glucose 81, Calcium 8.4 L 03/31/23 21:45: Sodium 138, Potassium 6.5 H*, Chloride 117 H, Carbon Dioxide 18.0 L, Anion Gap 3 L, BUN 44 H, Creatinine 2.87 H, Estim Creat Clear Calc 30.66, Est GFR (MDRD) Af Amer 28 L, Est GFR (MDRD) Non-Af 24 L, BUN/Creatinine Ratio 15.3, Glucose 90, Calcium 8.6 04/01/23 00:10: POC Glucose 85 04/01/23 01:20: Hgb 9.2 L, Hct 30.8 L, Sodium 140, Potassium 5.7 H, Chloride 118 H, Carbon Dioxide 19.0 L, Anion Gap 3 L, BUN 43 H, Creatinine 2.93 H, Estim Creat Clear Calc 30.04, Est GFR (MDRD) Af Amer 28 L, Est GFR (MDRD) Non-Af 23 L, BUN/Creatinine Ratio 14.7, Glucose 89, Calcium 9.5 04/01/23 03:29: Sodium 139, Potassium 5.6 H, Chloride 115 H, Carbon Dioxide 21.0, Anion Gap 3 L, BUN 41 H, Creatinine 2.74 H, Estim Creat Clear Calc 32.12, Est GFR (MDRD) Af Amer 30 L, Est GFR (MDRD) Non-Af 25 L, BUN/Creatinine Ratio 15.0, Glucose 94, Calcium 8.6 04/01/23 05:45: WBC 4.3 L, RBC 2.89 L, Hgb 9.4 L, Hct 30.9 L, MCV 106.9 H, MCH 32.5 H, MCHC 30.4 L D, RDW Std Deviation 69.8 H, RDW Coeff of Hugo 18.1 H, Plt Count 146 L, MPV 9.4, Immature Gran % (Auto) 0.200, Neut % (Auto) 61.0, Lymph % (Auto) 28.2, [place] % (Auto) 8.7, Eos % (Auto) 1.2, Baso % (Auto) 0.7, Absolute Neuts (auto) 2.6, Absolute Lymphs (auto) 1.20, Nucleated RBC % 0, Anisocytosis 2+, Sodium 140, Potassium 5.5 H, Chloride 115 H, Carbon Dioxide 21.0, Anion Gap 4 L, BUN 39 H, Creatinine 2.70 H, Estim Creat Clear Calc 32.59, Est GFR (MDRD) Af Amer 31 L, Est GFR (MDRD) Non-Af 25 L, BUN/Creatinine Ratio 14.4, Glucose 90, Calcium 8.5, Total Bilirubin 0.40, AST 17, ALT 13 L, Alkaline Phosphatase 178 H, Total Protein 7.0, Albumin 2.8 L, Globulin 4.2, Albumin/Globulin Ratio 0.7 L Micro: Microbiology 03/31/23 21:15 Sputum, Expectorated/Coughed Gram Stain - Final 04/01/23 05:40 Mucosa - Nasopharyngeal Respiratory Panel (PCR) - Final 03/31/23 21:15 Urine, Random Legionella Antigen - Final 03/31/23 21:15 Urine, Random Streptococcus pneumoniae Antigen (M - Final 03/31/23 21:15 Stool Stool Occult Blood (PAWAN) - Final Occult Blood Positive 03/31/23 14:50 Mucosa - Nose SARS-CoV-2, Influenza & RSV (PCR) - Final Radiography Diagnostic Testing: Radiology Impression Chest X-Ray 03/31/23 13:26 IMPRESSION: Right lower lobe infiltrate and blunting of the right costophrenic angle. Electronically Signed: Yosvany Carlos MD at 14:49 EST , Liver Ultrasound 04/01/23 07:54 IMPRESSION: Heterogeneous appearance of the liver. Multiple small gallstones are seen in the gallbladder. Electronically Signed: Yosvany Carlos MD at 15:15 EST , Physical Exam Const alert, oriented x3, no apparent distress and average body habitus General Appearance: cooperative and comfortable HEENT normocephalic, head/scalp atraumatic, hearing grossly normal bilaterally, nasal mucous membranes and turbinates normal and moist oral mucous membranes Eyes PERRL, EOMs intact bilaterally and conjunctivae normal Neck full ROM, no lymphadenopathy and supple Lymph Lymphatic: no lymphadenopathy noted Chest inspection of chest normal Resp Resp Narrative: Mildly decreased breath sounds bilaterally, no wheezing or crackles noted. Cardio regular rate, regular rhythm, no murmurs and peripheral pulses 2+ throughout GI normal to inspection, nondistended, normoactive bowel sounds, soft to palpation, non-tender and non-distended Back/Spine normal ROM Extremity normal to inspection, full ROM and no pedal edema Skin no rashes or lesions noted Neuro no focal motor deficits and no sensory deficits noted Speech: speech normal Psych mental status grossly normal Assessment & Plan Assessment/Plan (1) Community acquired pneumonia: QUALIFIERS: Laterality: left Lung location: unspecified part of lung Qualified Code(s): J18.9 - Pneumonia, unspecified organism (2) IRINA (acute kidney injury): (3) Anemia: (4) Hyperkalemia: PLAN: Plan Patient is a 68-year-old male who presented to [facility] ED on 03/31/2023 with worsening shortness of breath with exertion. 1. Right lower lobe community-acquired pneumonia with unknown organism, with acute hypoxia Chest x-ray on admit showed right lower lobe infiltrate with blunting of right costophrenic angle concerning for pneumonia. Not hypoxia on room air to mid 80s, improved to low 90s on 2 L nasal cannula. WBC count normal, afebrile, hemodynamically stable, did not meet sepsis criteria. COVID/flu/RSV negative in ED. Sputum culture with no growth to date. Urine antigens negative. Full respiratory PCR panel negative. ? Continue ceftriaxone and azithromycin for now. Will plan to de-escalate to p.o. antibiotics on discharge with plan for 7-day course of antibiotics total. Hopeful that patient will be able to be weaned off of supplemental oxygen prior to discharge. Will plan for home O2 eval prior to discharge. 2. Acute on chronic iron deficiency anemia, concern for upper GI bleed, mild thrombocytopenia Hemoglobin 8.9 on admit, MCV 109, platelets 146. Hemoglobin 9.5 on 03/25/23, but prior to that baseline hemoglobin appears to be around 12-13. Fecal occult stool positive in ED. Patient denied any dark or bloody bowel movements. Patient does have history of iron deficiency anemia secondary to previous gastric bypass surgery. Also has history of anastomotic ulcers back in 2018. ? GI following. Notably had multiple hemoglobin checks on 03/31 and 04/01 with stable hemoglobin around 9. Dr. Fay discussed with patient in 04/01, recommendation is for upper endoscopy but patient does not want to get an upper or lower endoscopy at this time. Liver ultrasound did not show evidence of underlying liver disease. GI recommending iron transfusions and outpatient capsule endoscopy, will discuss with them if patient should have iron transfusion done prior to discharge. 3. IRINA on CKD stage III, with acute hyperkalemia Creatinine 2.97, BUN 44, potassium 6.9 on admit. Baseline creatinine around 1.8-2.2. 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 Follows with Dr. Ramirez outpatient. Has history of hyperkalemia, had been on Lokelma in the past but discontinued due to cost. Suspected that both IRINA and hyperkalemia are in part due to recently starting Bactrim for buttock abscess as noted below, as well as likely poor p.o. intake over the last several days. Treated with multiple doses of Kayexalate, insulin, calcium, D50 and bicarb drip on admission with improvement of potassium to 5.5. ? Nephrology following. Bicarb drip discontinued. Renal diet with low potassium ordered. Creatinine 2.7 on 04/01 after IV fluids, continue to monitor urine output and BMP. Treating with IV antibiotics as noted above, hold on Bactrim going forward. Chronic medical conditions: ? Recent anaerobic cocci/gram-negative jaycee left buttock abscess: I&D in office with surgery on 03/25, cultures on 03/26 with gram-negative jaycee preliminary growth. Holding Bactrim as noted above, treating with IV ceftriaxone. ? Valvular heart disease with history of previous endocarditis: Previous aortic valve replacement as well as tricuspid valve repair. Most recent echo in 10/2020 showed EF 60%, moderate concentric LVH, no significant valve issues. Continue outpatient follow-up with cardiology. ? Paroxysmal A-fib: Holding home Eliquis for now, will plan to resume on discharge. ? History of CVA: Continue statin, holding Eliquis. ? History of sick sinus syndrome s/p pacemaker placement ? Hypertension, hyperlipidemia: Continue home statin, Coreg, amlodipine. ? Hypothyroidism: Continue home Synthroid. ? GERD: Continue home p.o. PPI twice daily. ? History of morbid obesity s/p gastric bypass surgery in 1995 DVT prophylaxis: SCDs CODE STATUS: Full code, verified Expected disposition: Home, 1 to 2 days Total clinical time spent by myself addressing the patient's medical issues, reviewing all the data, and collaborating with patient's care team: 35 minutes. Charges/Coding Visit Charges Inpatient E&M: 64143 Subs Hosp L2
--- NOTE | 2023-04-01 20:13 | NURSING ---
EMERGENCY DOCUMENTATION IN EFFECT STARTING NOW 04/01/2023 2013
[2023-04-01] MEDS: Atorvastatin Calcium 20 MG Tablet PO (21:13)
[2023-04-01] MEDS: 0.9% Normal Saline (1000mL) 1,000 ML 100 ML IV (23:06)
[2023-04-02] VITALS (9 sets, daily range): BP systolic 132–159; BP diastolic 77–97; PULSE 61–91; RESP 18–20; TEMP 36.2–36.7; O2SAT 85–95; BMI 26.0
[2023-04-02] MEDS: Acetaminophen 325 MG Tablet 650 MG PO (06:26)
[2023-04-02] MEDS: Levothyroxine 150 MCG Tablet PO (06:26)
[2023-04-02 07:08] LABS: Hematocrit 31.2 % (40-54); Hemoglobin 9.2 g/dL (13.0-16.5); Mean Corp Hgb Conc 29.5 g/dL (32-36); Mean Corpuscular Hgb 31.8 pg (27.0-32.0); Mean Platelet Vol. 9.8 fl (6.2-12.0); POSITIVE MORPHOLOGY YES; Platelet Count 146 K/mm3 (150-450); RBC Distribution Width CV 17.5 % (11.6-14.6); RBC Distribution Width SD 68.8 fl (35.1-43.9); Red Blood Count 2.89 M/mm3 (4.6-6.2); White Blood Count 4.8 K/mm3 (4.4-11.0)
[2023-04-02] MEDS: Budesonide Respules 0.5 MG/2 ML AMPUL.NEB. INHALATION ×2 (07:12→19:12)
[2023-04-02] MEDS: Albuterol 2.5 MG/3 ML VIAL.NEB. INHALATION (07:12)
[2023-04-02 07:40] LABS: Anion Gap 4 (5-15); BUN 29 mg/dL (7-18); BUN/Creat Ratio 11.9 RATIO (10-20); Calcium,Total 8.9 mg/dL (8.5-10.1); Chloride 112 mmol/L (98-107); Creatinine, Serum 2.44 mg/dL (0.70-1.30); EST Glomerular Filtration Rate 28 mL/min (>60); Est Glom Filt Rate - Afr Amer 34 mL/min (>60); Estimated Creatinine Clearance 36.07 ml/min; Glucose 91 mg/dL (74-106); Potassium 5.3 mmol/L (3.5-5.1); Sodium Level 139 mmol/L (136-145)
[2023-04-02 07:45] LABS: Scan Indicated on CBC? Y/N YES- FLAGS NOTED
[2023-04-02 08:37] LABS: Differential Comment SCANNED
[2023-04-02] MEDS: Carvedilol 25 MG Tablet PO ×2 (09:27→21:45)
[2023-04-02] MEDS: amLODIPine 5 MG Tablet PO (09:27)
[2023-04-02] MEDS: 0.9% Saline Lock 10 ML Syringe IV ×2 (09:28→21:47)
[2023-04-02] MEDS: Pantoprazole Sodium 40 MG in 0.9% Normal Saline (100mL MB+) 100 ML 330 MG IV ×2 (09:28→21:47)
[2023-04-02] MEDS: Ceftriaxone 1 GM/50 ML BAG IV (10:26)
[2023-04-02] MEDS: Azithromycin 500 MG in Dextrose 5%-Water (250mL Bag) 250 ML 250 MG IV (11:02)
--- NOTE | 2023-04-02 15:03 | PCM.PN.REN ---
Subjective Subjective Sitting in chair, denies complaints. States had some shortness of breath last evening but has improved. Objective Data Objective Data Vital Signs: Vital Signs Temp Pulse Resp BP Pulse Ox O2 Del Method O2 Flow Rate 98 F 78 18 148/97 H 95 Nasal Cannula 3 04/02/23 09:25 04/02/23 09:25 04/02/23 09:25 04/02/23 09:25 04/02/23 09:25 04/02/23 13:25 04/02/23 13:25 Oxygen Flow Rate (L/min) 3 Oxygen Delivery Method Nasal Cannula Weight: 97 kg Body Mass Index (BMI) 26.0 Intake & Output: Intake and Output for Last 24 Hours 03/31/23 04/01/23 04/02/23 23:59 23:59 23:59 Intake Total 1826 / 1826 3945 / 3945 1521.67 / 1521.67 Balance 1826 / 1826 3945 / 3945 1521.67 / 1521.67 Lab / Micro Data 04/02/23 06:25 04/02/23 06:25 Labs: Laboratory Results - last 24 hr 04/02/23 06:25: WBC 4.8, RBC 2.89 L, Hgb 9.2 L, Hct 31.2 L, MCV 108.0 H, MCH 31.8, MCHC 29.5 L, RDW Std Deviation 68.8 H, RDW Coeff of Hugo 17.5 H, Plt Count 146 L, MPV 9.8, Differential Comment SCANNED, Sodium 139, Potassium 5.3 H, Chloride 112 H, Carbon Dioxide 23.0, Anion Gap 4 L, BUN 29 H, Creatinine 2.44 H, Estim Creat Clear Calc 36.07, Est GFR (MDRD) Af Amer 34 L, Est GFR (MDRD) Non-Af 28 L, BUN/Creatinine Ratio 11.9, Glucose 91, Calcium 8.9 Micro: Microbiology 03/31/23 21:15 Sputum, Expectorated/Coughed Gram Stain - Final 03/31/23 21:15 Sputum, Expectorated/Coughed Respiratory Culture - Final Mixed normal respiratory arabella. No Streptococcus pneumoniae, beta-hemolytic Streptococcus or Staphylococcus aureus isolated. 04/01/23 05:40 Mucosa - Nasopharyngeal Respiratory Panel (PCR) - Final 03/31/23 21:15 Urine, Random Legionella Antigen - Final 03/31/23 21:15 Urine, Random Streptococcus pneumoniae Antigen (M - Final 03/31/23 21:15 Stool Stool Occult Blood (PAWAN) - Final Occult Blood Positive 03/31/23 14:50 Mucosa - Nose SARS-CoV-2, Influenza & RSV (PCR) - Final Radiography Diagnostic Testing: Radiology Impression Liver Ultrasound 04/01/23 07:54 IMPRESSION: Heterogeneous appearance of the liver. Multiple small gallstones are seen in the gallbladder. Electronically Signed: Yosvany Carlos MD at 15:15 EST , Physical Exam Narrative Alert and orient x 3, no apparent distress S1, S2, RRR Lung sounds clear anteriorly, diminished breath sounds posterior bases. 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, patient is status post aortic valve replacement bioprosthetic and TV repair (last echo October 2020: Normal LV systolic function, EF 60%, moderate concentric LVH, LA moderately enlarged, status post TV repair evident, aortic valve not well-visualized however 3D imaging assessment appears to have stable bioprosthetic AV apparatus in place), coronary artery disease, PAF, hypertension, hyperlipidemia, hypothyroidism, iron deficiency anemia on oral iron (SPEP negative in past), history of Elmer-en-Y gastric bypass who presented to the emergency room yesterday with complaints of dyspnea and feeling unwell. Workup in the emergency room concerning for pneumonia but also patient noted to be hyperkalemic therefore admitted for further evaluation and treatment. Nephrology consulted for IRINA and hyperkalemia. -Nonoliguric, near euvolemic IRINA superimposed on CKD stage III: followed by Dr. Ramirez in the [facility]. Baseline serum creatinine ~1.8 to 2.2 mg/dL. SCr 2.97 on admission and today improved to 2.44. IRINA likely secondary to poor oral intake, volume depletion, infection. Renal function improving with supportive care. Off Bactrim. Bactrim to be listed as allergy. - history of chronic mild hyperkalemia, no longer on MICHAEL inhibitor or ARB's. He had been on Lokelma in past but due to cost is no longer taking. On admission potassium was 6.9, improved and is currently 5.3. Patient received multiple doses of Kayexalate, insulin, calcium, D50, bicarb and was also on bicarb drip. He is no longer on bicarb drip. Reviewed with patient again today foods that are potassium rich that are recommended to avoid. Likely hyperkalemia from Bactrim and recent dietary indiscretion. - GI has been consulted for acute anemia and +stool for occult blood. On PPI drip. Hemoglobin 8.9 on admission--> 9.2 today. Seen by GI, no intervention at this time per patient request and to follow-up outpatient. - pneumonia; on antibiotics, azithromycin and ceftriaxone. - hypertension; blood pressures acceptable on amlodipine and carvedilol.
--- NOTE | 2023-04-02 15:55 | PCM.PN.HOSP ---
Reason for Visit Reason for Visit: Diagnoses Anemia, unspecified (03/31/23) Hyperkalemia (03/31/23) Pneumonia, unspecified organism (03/31/23) Acute kidney failure, unspecified (03/31/23) Subjective Subjective Patient seen at bedside this morning. Sitting comfortably in bedside chair, conversing normally, no acute distress. Satting in mid 90s on 2 L nasal cannula at rest, no increased work of breathing noted. Patient states that he required slightly more oxygen overnight and felt somewhat short of breath, but this has improved significantly this morning. Denies any worsening cough or sputum production. Denies any fevers or chills. Denies any chest pain. He was able to work fairly well with physical therapy this morning, feels okay with going home on discharge. No other acute concerns today. Objective Data Objective Data Vital Signs: Vital Signs Temp Pulse Resp BP Pulse Ox O2 Del Method O2 Flow Rate 98.1 F 85 18 149/91 H 94 Room Air 3 04/02/23 15:05 04/02/23 15:05 04/02/23 15:05 04/02/23 15:05 04/02/23 15:05 04/02/23 15:05 04/02/23 13:25 Oxygen Flow Rate (L/min) 3 Oxygen Delivery Method Room Air Weight: 97 kg Body Mass Index (BMI) 26.0 Intake & Output: Intake and Output for Last 24 Hours 03/31/23 04/01/23 04/02/23 23:59 23:59 23:59 Intake Total 1826 / 1826 3945 / 3945 1521.67 / 1521.67 Balance 1826 / 1826 3945 / 3945 1521.67 / 1521.67 Lab / Micro Data 04/02/23 06:25 04/02/23 06:25 Labs: Laboratory Results - last 24 hr 04/02/23 06:25: WBC 4.8, RBC 2.89 L, Hgb 9.2 L, Hct 31.2 L, MCV 108.0 H, MCH 31.8, MCHC 29.5 L, RDW Std Deviation 68.8 H, RDW Coeff of Hugo 17.5 H, Plt Count 146 L, MPV 9.8, Differential Comment SCANNED, Sodium 139, Potassium 5.3 H, Chloride 112 H, Carbon Dioxide 23.0, Anion Gap 4 L, BUN 29 H, Creatinine 2.44 H, Estim Creat Clear Calc 36.07, Est GFR (MDRD) Af Amer 34 L, Est GFR (MDRD) Non-Af 28 L, BUN/Creatinine Ratio 11.9, Glucose 91, Calcium 8.9 Micro: Microbiology 03/31/23 21:15 Sputum, Expectorated/Coughed Gram Stain - Final 03/31/23 21:15 Sputum, Expectorated/Coughed Respiratory Culture - Final Mixed normal respiratory arabella. No Streptococcus pneumoniae, beta-hemolytic Streptococcus or Staphylococcus aureus isolated. 04/01/23 05:40 Mucosa - Nasopharyngeal Respiratory Panel (PCR) - Final 03/31/23 21:15 Urine, Random Legionella Antigen - Final 03/31/23 21:15 Urine, Random Streptococcus pneumoniae Antigen (M - Final 03/31/23 21:15 Stool Stool Occult Blood (PAWAN) - Final Occult Blood Positive 03/31/23 14:50 Mucosa - Nose SARS-CoV-2, Influenza & RSV (PCR) - Final Physical Exam Const alert, oriented x3, no apparent distress and average body habitus General Appearance: cooperative and comfortable HEENT normocephalic, head/scalp atraumatic, hearing grossly normal bilaterally, nasal mucous membranes and turbinates normal and moist oral mucous membranes Eyes PERRL, EOMs intact bilaterally and conjunctivae normal Neck full ROM, no lymphadenopathy and supple Lymph Lymphatic: no lymphadenopathy noted Chest inspection of chest normal Resp Resp Narrative: Mildly decreased breath sounds bilaterally, no wheezing or crackles noted. Cardio regular rate, regular rhythm, no murmurs and peripheral pulses 2+ throughout GI normal to inspection, nondistended, normoactive bowel sounds, soft to palpation, non-tender and non-distended Back/Spine normal ROM Extremity normal to inspection, full ROM and no pedal edema Skin no rashes or lesions noted Neuro no focal motor deficits and no sensory deficits noted Speech: speech normal Psych mental status grossly normal Assessment & Plan Assessment/Plan (1) Community acquired pneumonia: QUALIFIERS: Laterality: left Lung location: unspecified part of lung Qualified Code(s): J18.9 - Pneumonia, unspecified organism (2) IRINA (acute kidney injury): (3) Anemia: (4) Hyperkalemia: PLAN: Plan Patient is a 68-year-old male who presented to [facility] ED on 03/31/2023 with worsening shortness of breath with exertion. 1. Right lower lobe community-acquired pneumonia with unknown organism, with acute hypoxia Chest x-ray on admit showed right lower lobe infiltrate with blunting of right costophrenic angle concerning for pneumonia. Not hypoxia on room air to mid 80s, improved to low 90s on 2 L nasal cannula. WBC count normal, afebrile, hemodynamically stable, did not meet sepsis criteria. COVID/flu/RSV negative in ED. Sputum culture with no growth to date. Urine antigens negative. Full respiratory PCR panel negative. ? Continue ceftriaxone and azithromycin for now. Will plan to de-escalate to p.o. antibiotics on discharge with plan for 7-day course of antibiotics total. Hopeful that patient will be able to be weaned off of supplemental oxygen prior to discharge. Will plan for home O2 eval prior to discharge. 2. Acute on chronic iron deficiency anemia, concern for upper GI bleed, mild thrombocytopenia Hemoglobin 8.9 on admit, MCV 109, platelets 146. Hemoglobin 9.5 on 03/25/23, but prior to that baseline hemoglobin appears to be around 12-13. Fecal occult stool positive in ED. Patient denied any dark or bloody bowel movements. Patient does have history of iron deficiency anemia secondary to previous gastric bypass surgery. Also has history of anastomotic ulcers back in 2018. ? GI following. Notably had multiple hemoglobin checks on 03/31 and 04/01 with stable hemoglobin around 9. Dr. Fay discussed with patient in 04/01, recommendation is for upper endoscopy but patient does not want to get an upper or lower endoscopy at this time. Liver ultrasound did not show evidence of underlying liver disease. GI recommending outpatient iron transfusions and outpatient capsule endoscopy. Monitor CBC daily. 3. IRINA on CKD stage III, improving; hyperkalemia, improving Creatinine 2.97, BUN 44, potassium 6.9 on admit. Baseline creatinine around 1.8-2.2. 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 Follows with Dr. Ramirez outpatient. Has history of hyperkalemia, had been on Lokelma in the past but discontinued due to cost. Suspected that both IRINA and hyperkalemia are in part due to recently starting Bactrim for buttock abscess as noted below, as well as likely poor p.o. intake over the last several days. Treated with multiple doses of Kayexalate, insulin, calcium, D50 and bicarb drip on admission with improvement of potassium to 5.5. Bicarb drip discontinued on 04/01. ? Nephrology following. Creatinine 2.44 on 04/02 with adequate urine output, continue to monitor urine output and BMP daily. Treating with IV antibiotics as above, hold on Bactrim going forward. Chronic medical conditions: ? Recent anaerobic cocci/gram-negative jaycee left buttock abscess: I&D in office with surgery on 03/25, cultures on 03/26 with gram-negative jaycee preliminary growth. Holding Bactrim as noted above, treating with IV ceftriaxone. ? Valvular heart disease with history of previous endocarditis: Previous aortic valve replacement as well as tricuspid valve repair. Most recent echo in 10/2020 showed EF 60%, moderate concentric LVH, no significant valve issues. Continue outpatient follow-up with cardiology. ? Paroxysmal A-fib: Holding home Eliquis for now, will plan to resume on discharge. ? History of CVA: Continue statin, holding Eliquis. ? History of sick sinus syndrome s/p pacemaker placement ? Hypertension, hyperlipidemia: Continue home statin, Coreg, amlodipine. ? Hypothyroidism: Continue home Synthroid. ? GERD: Continue home p.o. PPI twice daily. ? History of morbid obesity s/p gastric bypass surgery in 1995 DVT prophylaxis: SCDs CODE STATUS: Full code, verified Expected disposition: Home, 1 to 2 days Total clinical time spent by myself addressing the patient's medical issues, reviewing all the data, and collaborating with patient's care team: 35 minutes. Charges/Coding Visit Charges Inpatient E&M: 52905 Subs Hosp L2
--- NOTE | 2023-04-02 17:57 | PN.GI_ITS ---
Subjective Subjective Patient denies any abdominal pain. He denies any chest pain or shortness of breath. Objective Data Objective Data Vital Signs: Vital Signs Temp Pulse Resp BP Pulse Ox O2 Del Method O2 Flow Rate 98.1 F 85 18 149/91 H 94 Room Air 3 04/02/23 15:05 04/02/23 15:05 04/02/23 15:05 04/02/23 15:05 04/02/23 15:05 04/02/23 15:05 04/02/23 13:25 Oxygen Flow Rate (L/min) 3 Oxygen Delivery Method Room Air Weight: 213 lb 13.574 oz Body Mass Index (BMI) 26.0 Intake & Output: Intake and Output for Last 24 Hours 03/31/23 04/01/23 04/02/23 23:59 23:59 23:59 Intake Total 1825 / 18255 / 3944 / Balance 1825 / 1825 3944 / 394 Lab / Micro Data 04/02/23 06:25 04/02/23 06:25 Labs: Laboratory Results - last 24 hr 04/02/23 06:25: WBC 4.8, RBC 2.89 L, Hgb 9.2 L, Hct 31.2 L, MCV 108.0 H, MCH 31.8, MCHC 29.5 L, RDW Std Deviation 68.8 H, RDW Coeff of Hugo 17.5 H, Plt Count 146 L, MPV 9.8, Differential Comment SCANNED, Sodium 139, Potassium 5.3 H, Chloride 112 H, Carbon Dioxide 23.0, Anion Gap 4 L, BUN 29 H, Creatinine 2.44 H, Estim Creat Clear Calc 36.07, Est GFR (MDRD) Af Amer 34 L, Est GFR (MDRD) Non-Af 28 L, BUN/Creatinine Ratio 11.9, Glucose 91, Calcium 8.9 Micro: Microbiology 03/31/23 21:15 Sputum, Expectorated/Coughed Gram Stain - Final 03/31/23 21:15 Sputum, Expectorated/Coughed Respiratory Culture - Final Mixed normal respiratory arabella. No Streptococcus pneumoniae, beta-hemolytic Streptococcus or Staphylococcus aureus isolated. 04/01/23 05:40 Mucosa - Nasopharyngeal Respiratory Panel (PCR) - Final 03/31/23 21:15 Urine, Random Legionella Antigen - Final 03/31/23 21:15 Urine, Random Streptococcus pneumoniae Antigen (M - Final 03/31/23 21:15 Stool Stool Occult Blood (PAWAN) - Final Occult Blood Positive 03/31/23 14:50 Mucosa - Nose SARS-CoV-2, Influenza & RSV (PCR) - Final Physical Exam Const alert, oriented x3, no apparent distress and average body habitus General Appearance: cooperative and comfortable HEENT normocephalic, head/scalp atraumatic, hearing grossly normal bilaterally, nasal mucous membranes and turbinates normal and moist oral mucous membranes Eyes PERRL, EOMs intact bilaterally and conjunctivae normal Neck full ROM, no lymphadenopathy and supple Lymph Lymphatic: no lymphadenopathy noted Chest inspection of chest normal Resp Resp Narrative: Mildly decreased breath sounds bilaterally, no wheezing or crackles noted. Cardio regular rate, regular rhythm, no murmurs and peripheral pulses 2+ throughout GI normal to inspection, nondistended, normoactive bowel sounds, soft to palpation, non-tender and non-distended Back/Spine normal ROM Extremity normal to inspection, full ROM and no pedal edema Skin no rashes or lesions noted Neuro no focal motor deficits and no sensory deficits noted Speech: speech normal Psych mental status grossly normal Assessment & Plan Assessment/Plan (1) Community acquired pneumonia: QUALIFIERS: Laterality: left Lung location: unspecified part of lung Qualified Code(s): J18.9 - Pneumonia, unspecified organism PLAN: Plan The patient is a 68 y/o morbid obesity status post Elmer-en-Y gastric bypass, GERD w/ Hx of anastomotic gastric and jejunal ulcer/GI bleed, Chronic anemia/Fe deficiency anemia, who presents to the [facility] ED on 03/31/2023 with history of shortness of breath, lightheadedness and dizziness with recently noted anemia with workup ongoing outpatient but given symptomatic prompted ED evaluation. He denies dark stools. Acute Symptomatic Anemia on Chronic/Fe deficiency anemia with concern possible GI bleed w/ previous history: Admission hemoglobin 8.9, previous to this 03/25/2023 hemoglobin 9.5 and prior to this 11/17/2022 hemoglobin 14.5 reportedly having this also worked up outpatient. He does have a history of anastomotic ulcers and I think he would benefit from an upper endoscopy. However he does not want to get an upper or lower endoscopy at this time. I told him that there is a possibility with his pancytopenia or bicytopenia that he may have some underlying liver disease that may be contributing to his symptoms. I told him that in the setting of iron deficiency anemia is not normal to have thrombocytopenia unless you have some type of splenic sequestration secondary to chronic liver disease or bone marrow issue. Therefore recommend iron transfusions and outpatient capsule endoscopy. Further recommendation to follow that he has ultrasound of the right upper quadrant. 04/02-ultrasound of the liver: The liver measures 17.3 cm. There is a heterogeneous echogenicity of the liver. The bile ducts are within normal limits. There is hepatic color flow. The direction of portal flow is hepatopetal. There is no demonstrated mass lesion. Sometimes it can be difficult to see if there is any signs of cirrhosis on an ultrasound. It can give a heterogenous appearance. He will need a CT scan abdomen pelvis or MRI and he cannot have a contrast study due to his kidney function. I still suspect his complete blood count is more consistent with a patient with portal hypertension. He has hepatopetal flow which we can see of cirrhosis along with heterogenicity. At this time I do not think he needs a liver biopsy but would possibly can get an MRI with out contrast to fully to evaluate his liver further . Hemoglobin seems to be stable. Patient did agree to have outpatient capsule endoscopy. As he does not want to have any procedures for his anemia with history of anastomotic ulcers status post Gastric bypass surgery. Charges/Coding Visit Charges Inpatient E&M: 54840 Subs Hosp L3
[2023-04-02] MEDS: Atorvastatin Calcium 20 MG Tablet PO (21:45)
[2023-04-03] VITALS (7 sets, daily range): BP systolic 129–158; BP diastolic 64–84; PULSE 62–79; RESP 16–20; TEMP 36.3–36.6; O2SAT 84–95; BMI 26.2
[2023-04-03] MEDS: Levothyroxine 150 MCG Tablet PO (05:50)
[2023-04-03] MEDS: Acetaminophen 325 MG Tablet 650 MG PO (06:02)
[2023-04-03 07:29] LABS: Anion Gap 5 (5-15); BUN 28 mg/dL (7-18); BUN/Creat Ratio 12.7 RATIO (10-20); Calcium,Total 8.7 mg/dL (8.5-10.1); Chloride 114 mmol/L (98-107); Creatinine, Serum 2.21 mg/dL (0.70-1.30); EST Glomerular Filtration Rate 32 mL/min (>60); Est Glom Filt Rate - Afr Amer 38 mL/min (>60); Estimated Creatinine Clearance 39.82 ml/min; Glucose 86 mg/dL (74-106); Potassium 5.5 mmol/L (3.5-5.1); Sodium Level 141 mmol/L (136-145)
[2023-04-03] MEDS: Budesonide Respules 0.5 MG/2 ML AMPUL.NEB. INHALATION (07:36)
--- NOTE | 2023-04-03 08:45 | PCM.PN.REN ---
Subjective Subjective Sitting in chair. Denies any complaints today. No overnight events. Objective Data Objective Data Vital Signs: Vital Signs Temp Pulse Resp BP Pulse Ox O2 Del Method O2 Flow Rate 97.9 F 63 18 129/64 H 93 Nasal Cannula 3 04/03/23 03:45 04/03/23 03:45 04/03/23 03:45 04/03/23 03:45 04/03/23 03:45 04/03/23 03:45 04/03/23 03:45 Oxygen Flow Rate (L/min) 3 Oxygen Delivery Method Nasal Cannula Weight: 97.9 kg Body Mass Index (BMI) 26.2 Intake & Output: Intake and Output for Last 24 Hours 04/01/23 04/02/23 04/03/23 23:59 23:59 23:59 Intake Total 3945 / 3945 2081.67 / 2080.67 Balance 3945 / 3945 2080.67 / 2080.67 Lab / Micro Data 04/02/23 06:25 04/03/23 06:00 Labs: Laboratory Results - last 24 hr 04/03/23 06:00: Sodium 141, Potassium 5.5 H, Chloride 114 H, Carbon Dioxide 22.0, Anion Gap 5, BUN 28 H, Creatinine 2.21 H, Estim Creat Clear Calc 39.82, Est GFR (MDRD) Af Amer 38 L, Est GFR (MDRD) Non-Af 32 L, BUN/Creatinine Ratio 12.7, Glucose 86, Calcium 8.7 Micro: Microbiology 03/31/23 21:15 Sputum, Expectorated/Coughed Gram Stain - Final 03/31/23 21:15 Sputum, Expectorated/Coughed Respiratory Culture - Final Mixed normal respiratory arabella. No Streptococcus pneumoniae, beta-hemolytic Streptococcus or Staphylococcus aureus isolated. 04/01/23 05:40 Mucosa - Nasopharyngeal Respiratory Panel (PCR) - Final 03/31/23 21:15 Urine, Random Legionella Antigen - Final 03/31/23 21:15 Urine, Random Streptococcus pneumoniae Antigen (M - Final 03/31/23 21:15 Stool Stool Occult Blood (PAWAN) - Final Occult Blood Positive 03/31/23 14:50 Mucosa - Nose SARS-CoV-2, Influenza & RSV (PCR) - Final Physical Exam Narrative Alert and orient x 3, no apparent distress S1, S2, RRR Lung sounds clear anteriorly, diminished breath sounds posterior bases. 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, patient is status post aortic valve replacement bioprosthetic and TV repair (last echo October 2020: Normal LV systolic function, EF 60%, moderate concentric LVH, LA moderately enlarged, status post TV repair evident, aortic valve not well-visualized however 3D imaging assessment appears to have stable bioprosthetic AV apparatus in place), coronary artery disease, PAF, hypertension, hyperlipidemia, hypothyroidism, iron deficiency anemia on oral iron (SPEP negative in past), history of Elmer-en-Y gastric bypass who presented to the emergency room yesterday with complaints of dyspnea and feeling unwell. Workup in the emergency room concerning for pneumonia but also patient noted to be hyperkalemic therefore admitted for further evaluation and treatment. Nephrology consulted for IRINA and hyperkalemia. -Nonoliguric, near euvolemic IRINA superimposed on CKD stage III: followed by Dr. Ramirez in the [facility]. Baseline serum creatinine ~1.8 to 2.2 mg/dL. SCr 2.97 on admission and today improved to 2.21. IRINA likely secondary to poor oral intake, volume depletion, infection. Renal function improving with supportive care. Off Bactrim. Bactrim to be listed as allergy. - history of chronic mild hyperkalemia, no longer on MICHAEL inhibitor or ARB's. He had been on Lokelma in past but due to cost is no longer taking. On admission potassium was 6.9, improved to 5.3. Today potassium is 5.5. On admission patient received multiple doses of Kayexalate, insulin, calcium, D50, bicarb and was also on bicarb drip. He is no longer on bicarb drip. Reviewed with patient again today foods that are potassium rich that are recommended to avoid. Likely hyperkalemia from Bactrim and recent dietary indiscretion. Will give dose of Kayexalate this morning. - GI has been consulted for acute anemia and +stool for occult blood. On PPI drip. Hemoglobin 8.9 on admission--> 9.2. Seen by GI, no intervention at this time per patient request and to follow-up outpatient. - pneumonia; on antibiotics, azithromycin and ceftriaxone. - hypertension; blood pressures acceptable on amlodipine and carvedilol. - Patient has appointment with Dr. Ramirez in [place] office in May
[2023-04-03] MEDS: Pantoprazole Sodium 40 MG in 0.9% Normal Saline (100mL MB+) 100 ML 330 MG IV (09:41)
[2023-04-03] MEDS: Sodium Polystyrene Sulfonate 15 GM/60 ML UDC PO (09:46)
[2023-04-03] MEDS: amLODIPine 5 MG Tablet PO (09:48)
[2023-04-03] MEDS: Carvedilol 25 MG Tablet PO (09:48)
[2023-04-03] MEDS: Ceftriaxone 1 GM/50 ML BAG IV (11:39)
--- NOTE | 2023-04-03 12:30 | CASEMGMT ---
Addendum entered by Kalin Marcelino 04/03/23 12:36: Script for O2 @ 3 l/m w/exertion obtained from Dr Dunbar and sent to [facility] via [employer]. Call placed to Fay @ [facility], she was made aware of O2 referral, that pt is discharging home today, and portable O2 tank to be delivered to pt's room today. Original Note: JORGE SALAMANCA NOTE: Per Dr Dunbar, pt discharging home today. Home O2 testing has been completed and pt qualifies for O2 @ 3 l/m w/exertion. JORGE SALAMANCA to room. Pt sitting up in chair. Introduced self and role. Pt verifies he would like to get home O2 from [facility]. Discussed home O2 et-up process and questions answered. Pt aware to call [facility] prior to leaving the hospital to make arrangements for home O2 delivery. Pt states he does not have a pulse ox, but that he can afford one, and he plans to have his sister pick one up for him. He denies need for HHC, OP therapy, or any other discharge needs. Issa VEE RN CM
[2023-04-03] MEDS: Azithromycin 500 MG in Dextrose 5%-Water (250mL Bag) 250 ML 250 MG IV (12:32)
--- NOTE | 2023-04-03 14:03 | DCINST_ITS ---
Discharge Instructions Diet Discharge Diet: No restrictions Activity Discharge Activity: No Restrictions Weight Bearing Status: Full weight bearing Follow Up Care Test Results: Test results from this visit will be discussed in further detail at your follow- up appointment, if applicable. Discharge Plan Admission Admit Date/Time: 03/31/23 15:44 Primary Reason for Your Visit: Shortness of breath with exertion Attending Provider: Larry Dunbar Primary Care Provider: Tapan Cuellar Consulting Providers: Noemí Vela; Al Ramirez Discharge Orders/Prescriptions Prescriptions: New azithromycin 500 mg tablet 500 mg PO DAILY 4 Days Qty: 4 0RF Continued cholecalciferol (vitamin D3) 2,000 unit tablet 2,000 unit tablet 2,000 unit PO DAILY pantoprazole 20 mg tablet,delayed release (DR/EC) 40 mg PO BID Farxiga 10 mg tablet 10 mg PO DAILY acetaminophen 500 MG tablet 1,000 mg PO Q4H PRN (Reason: Pain) levothyroxine 150 mcg tablet 150 mcg PO DAILY cyanocobalamin (vitamin B-12) 500 mcg tablet 500 mcg PO QDAY carvedilol 25 mg tablet 25 mg PO BID Qty: 180 4RF atorvastatin 20 mg tablet 20 mg PO DAILY Qty: 90 3RF amlodipine 5 mg tablet 5 mg PO DAILY Qty: 90 3RF Eliquis 5 mg tablet 5 mg PO BID Qty: 180 4RF Discontinued metronidazole 500 mg tablet 500 mg PO TID 7 Days Qty: 21 0RF Referrals / Follow Up: Tapan Cuellar DO [Primary Care Provider] - Disposition Disposition (needs filled in before D/C Order can be placed): Home, Self Care
--- NOTE | 2023-04-03 14:06 | DS.PCM_ITS ---
Providers Date of Admission: 03/31/23 Date of Discharge: 04/03/23 Primary Care Physician: Dr. Tapan Cuellar, Consultations 03/31/23 18:32 Consult: Onc/Wound/dog barber Routine Comment: Reason for Consult:: Buttock recent abscess 03/31/23 23:20 Consult: Nephrology Routine Consulting Provider: Al Ramriez Reason for Consult: hyperkalemia EMERGENT Consult: No MD Notified: Yes Date Notified: 04/01/23 Time Notified: 07:08 Method of Notification: Text 04/01/23 02:45 Consult: Gastroenterology Routine Consulting Provider: [facility] Reason for Consult: acute on chronic anemia, stool for occult blood positive EMERGENT Consult: No MD Notified: Yes Date Notified: 04/01/23 Time Notified: 05:49 Method of Notification: Text Reason For Visit: RLL PNA, HYPOXIA, ACUTE ANEMIA, IRINA Diagnosis Discharge Diagnosis (1) Hyperkalemia: Status: Acute Code(s): E87.5 - Hyperkalemia (2) Hypoxia: Status: Acute Code(s): R09.02 - Hypoxemia (3) IRINA (acute kidney injury): Status: Acute Code(s): N17.9 - Acute kidney failure, unspecified (4) CKD (chronic kidney disease) stage 3, GFR 30-59 ml/min: Status: Chronic Code(s): N18.30 - Chronic kidney disease, stage 3 unspecified Medications at Discharge Home Medications cyanocobalamin (vitamin B-12) 500 mcg tablet 500 mcg PO QDAY SUPPLEMENT 03/27/17 acetaminophen 500 mg tablet 1,000 mg PO Q4H PRN Pain 10/27/17 pantoprazole 20 mg tablet,delayed release 40 mg PO BID reflux 03/15/18 cholecalciferol (vitamin D3) 50 mcg (2,000 unit) tablet 2,000 unit PO DAILY vitamin 05/21/18 carvedilol 25 mg tablet 25 mg PO BID blood pressure #180 tabs 05/15/22 dapagliflozin propanediol 10 mg tablet (Farxiga) 10 mg PO DAILY diabetes 11/25/22 atorvastatin 20 mg tablet 20 mg PO DAILY cholesterol #90 tabs 02/06/23 amlodipine 5 mg tablet 5 mg PO DAILY blood pressure #90 tabs 02/23/23 apixaban 5 mg tablet (Eliquis) 5 mg PO BID blood thinner #180 tabs 03/10/23 levothyroxine 150 mcg tablet 150 mcg PO DAILY thyroid 03/31/23 azithromycin 500 mg tablet 500 mg PO DAILY 4 days #4 tabs 04/03/23 Hospital Course Operations None Procedures EKG and - (Chest x-ray, liver ultrasound) Summary of Care Provided Minutes Spent on Discharge: 35 Hospital Course: Patient is a 68-year-old male who presented to [facility] ED on 03/31/2023 with worsening shortness of breath with exertion. Hospital course as noted below. Discharged home in stable condition on 04/03. 1. Right lower lobe community-acquired pneumonia with unknown organism, with acute hypoxia Chest x-ray on admit showed right lower lobe infiltrate with blunting of right costophrenic angle concerning for pneumonia. Noted hypoxia on room air to mid 80s, improved to low 90s on 2 L nasal cannula. WBC count normal, afebrile, hemodynamically stable, did not meet sepsis criteria. COVID/flu/RSV negative in ED. Sputum culture with no growth to date. Urine antigens negative. Full respiratory PCR panel negative. ? Treated with ceftriaxone and azithromycin while inpatient, de-escalated to p.o. azithromycin on discharge to complete 7-day course. Patient notably did require supplemental oxygen on discharge. Patient is ambulatory in the home and community and requires oxygen with portability. 2. Acute on chronic iron deficiency anemia, concern for upper GI bleed, mild thrombocytopenia Hemoglobin 8.9 on admit, MCV 109, platelets 146. Hemoglobin 9.5 on 03/25/23, but prior to that baseline hemoglobin appears to be around 12-13. Fecal occult stool positive in ED. Patient denied any dark or bloody bowel movements. Patient does have history of iron deficiency anemia secondary to previous gastric bypass surgery. Also has history of anastomotic ulcers back in 2018. Liver ultrasound did not show evidence of underlying liver disease. ? GI followed. Hemoglobin remained stable around 9 for remainder of admission. [address] Fay recommended upper endoscopy during admission, but patient did not want to get either upper or lower endoscopy done. Recommendation from GI on discharge is for outpatient iron transfusions and outpatient capsule endoscopy. 3. IRINA on CKD stage III, improving; hyperkalemia, improving Creatinine 2.97, BUN 44, potassium 6.9 on admit. Baseline creatinine around 1.8-2.2. 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 Follows with Dr. Ramirez outpatient. Has history of hyperkalemia, had been on Lokelma in the past but discontinued due to cost. Suspected that both IRINA and hyperkalemia are in part due to recently starting Bactrim for buttock abscess as noted below, as well as likely poor p.o. intake over the last several days. Treated with multiple doses of Kayexalate, insulin, calcium, D50 and bicarb drip on admission with improvement of potassium to 5.5. Bicarb drip discontinued on 04/01. ? Nephrology followed. Creatinine 2.21 on day of discharge with adequate urine output. Potassium 5.5 on day of discharge, but patient notably has history of hyperkalemia and is aware of recommendations from nephrology regarding a potassium sparing diet on discharge. Recommend repeat BMP in 5 to 7 days to ensure continued improvement/stabilization of kidney function and stable potassium level. Recommend holding on prescribing Bactrim going forward. Chronic medical conditions: ? Recent anaerobic cocci/gram-negative jaycee left buttock abscess: I&D in office with surgery on 03/25, cultures on 03/26 with gram-negative jaycee preliminary growth. Held Bactrim, treated with antibiotics as noted above. ? Valvular heart disease with history of previous endocarditis: Previous aortic valve replacement as well as tricuspid valve repair. Most recent echo in 10/2020 showed EF 60%, moderate concentric LVH, no significant valve issues. Continue outpatient follow-up with cardiology. ? Paroxysmal A-fib: Held Eliquis during admission, resumed on discharge. ? History of CVA: Continue statin and Eliquis. ? History of sick sinus syndrome s/p pacemaker placement ? Hypertension, hyperlipidemia: Continue home statin, Coreg, amlodipine. ? Hypothyroidism: Continue home Synthroid. ? GERD: Continue home p.o. PPI twice daily. ? History of morbid obesity s/p gastric bypass surgery in 1995 Total clinical time spent by myself addressing the patient's discharge needs: 35 minutes. Physical Exam Const alert, oriented x3, no apparent distress and average body habitus General Appearance: cooperative and comfortable HEENT normocephalic, head/scalp atraumatic, hearing grossly normal bilaterally, nasal mucous membranes and turbinates normal and moist oral mucous membranes Eyes PERRL, EOMs intact bilaterally and conjunctivae normal Neck full ROM, no lymphadenopathy and supple Lymph Lymphatic: no lymphadenopathy noted Chest inspection of chest normal Resp Resp Narrative: Mildly decreased breath sounds bilaterally, no wheezing or crackles noted. Cardio regular rate, regular rhythm, no murmurs and peripheral pulses 2+ throughout GI normal to inspection, nondistended, normoactive bowel sounds, soft to palpation, non-tender and non-distended Back/Spine normal ROM Extremity normal to inspection, full ROM and no pedal edema Skin no rashes or lesions noted Neuro no focal motor deficits and no sensory deficits noted Speech: speech normal Psych mental status grossly normal Weight / BMI Weight Weight: 97.9 kg Body Mass Index (BMI) 26.2 ABG / Lab / Microbiology Data 04/02/23 06:25 04/03/23 06:00 Laboratory: Laboratory Results - last 24 hr 04/03/23 06:00: Sodium 141, Potassium 5.5 H, Chloride 114 H, Carbon Dioxide 22.0, Anion Gap 5, BUN 28 H, Creatinine 2.21 H, Estim Creat Clear Calc 39.82, Est GFR (MDRD) Af Amer 38 L, Est GFR (MDRD) Non-Af 32 L, BUN/Creatinine Ratio 12.7, Glucose 86, Calcium 8.7 Microbiology: Microbiology 03/31/23 21:15 Sputum, Expectorated/Coughed Gram Stain - Final 03/31/23 21:15 Sputum, Expectorated/Coughed Respiratory Culture - Final Mixed normal respiratory arabella. No Streptococcus pneumoniae, beta-hemolytic Streptococcus or Staphylococcus aureus isolated. 04/01/23 05:40 Mucosa - Nasopharyngeal Respiratory Panel (PCR) - Final 03/31/23 21:15 Urine, Random Legionella Antigen - Final 03/31/23 21:15 Urine, Random Streptococcus pneumoniae Antigen (M - Final 03/31/23 21:15 Stool Stool Occult Blood (PAWAN) - Final Occult Blood Positive 03/31/23 14:50 Mucosa - Nose SARS-CoV-2, Influenza & RSV (PCR) - Final D/C Instructions Discharge Diet: No restrictions Weight Bearing Status: Full weight bearing Meaningful Use Info Meaningful Use Diagnoses (Choose all that apply): None applicable Discharge Plan Admission Admit Date/Time: 03/31/23 15:44 Attending Provider: Larry Dunbar Primary Care Provider: Tapan Cuellar Consulting Providers: Noemí Vela; Al Ramirez Discharge Orders/Prescriptions Prescriptions: New azithromycin 500 mg tablet 500 mg PO DAILY 4 Days Qty: 4 0RF Continued cholecalciferol (vitamin D3) 2,000 unit tablet 2,000 unit tablet 2,000 unit PO DAILY pantoprazole 20 mg tablet,delayed release (DR/EC) 40 mg PO BID dapagliflozin propanediol [Farxiga] 10 mg tablet 10 mg PO DAILY acetaminophen 500 MG tablet 1,000 mg PO Q4H PRN (Reason: Pain) levothyroxine 150 mcg tablet 150 mcg PO DAILY cyanocobalamin (vitamin B-12) 500 mcg tablet 500 mcg PO QDAY carvedilol 25 mg tablet 25 mg PO BID Qty: 180 4RF atorvastatin 20 mg tablet 20 mg PO DAILY Qty: 90 3RF amlodipine 5 mg tablet 5 mg PO DAILY Qty: 90 3RF Eliquis 5 mg tablet 5 mg PO BID Qty: 180 4RF Discontinued metronidazole 500 mg tablet 500 mg PO TID 7 Days Qty: 21 0RF Referrals / Follow Up: Tapan Cuellar DO [Primary Care Provider] - 04/08/23 9:10 am Disposition Disposition (needs filled in before D/C Order can be placed): Home, Self Care Charges/Coding Visit Charges Inpatient E&M: 65390 Disch Hosp >30min
--- NOTE | 2023-04-03 14:26 | PHA.DC_ITS ---
Pharmacy [facility] has performed discharge medication reconciliation and counseling for this patient. The patient's discharge medication list was reviewed for discrepancies and discrepancies were resolved. The patient was counseled on the following discharge medications and changes in medications for homegoing were reviewed. The Reason for Use, instructions for use, and potential side effects were reviewed for all new medications. The patient's questions regarding all of their medications were answered. 1. Azithromycin 500 mg PO daily x 4 days The patient was able to verbally demonstrate an understanding of their discharge medications. Medications at Discharge Home Medications cyanocobalamin (vitamin B-12) 500 mcg tablet 500 mcg PO QDAY SUPPLEMENT 03/27/17 acetaminophen 500 mg tablet 1,000 mg PO Q4H PRN Pain 10/27/17 pantoprazole 20 mg tablet,delayed release 40 mg PO BID reflux 03/15/18 cholecalciferol (vitamin D3) 50 mcg (2,000 unit) tablet 2,000 unit PO DAILY vitamin 05/21/18 carvedilol 25 mg tablet 25 mg PO BID blood pressure #180 tabs 05/15/22 dapagliflozin propanediol 10 mg tablet (Farxiga) 10 mg PO DAILY diabetes 11/25/22 atorvastatin 20 mg tablet 20 mg PO DAILY cholesterol #90 tabs 02/06/23 amlodipine 5 mg tablet 5 mg PO DAILY blood pressure #90 tabs 02/23/23 apixaban 5 mg tablet (Eliquis) 5 mg PO BID blood thinner #180 tabs 03/10/23 levothyroxine 150 mcg tablet 150 mcg PO DAILY thyroid 03/31/23 azithromycin 500 mg tablet 500 mg PO DAILY 4 days #4 tabs 04/03/23
== END 2023-04-03 15:49 | disposition home or self-care (01) | DRG 811 ==
LOC: ED 15:19 → PCU 17:08
PROVIDERS: Admitting Provider Family Medicine; Emergency Provider Emergency Medicine; PCP Family Medicine; Visit Provider Hospitalist
DX: D62 Acute posthemorrhagic anemia (principal); J18.9 Pneumonia, unspecified organism; N17.9 Acute kidney failure, unspecified; K92.2 Gastrointestinal hemorrhage, unspecified; L02.31 Cutaneous abscess of buttock; I08.2 Rheumatic disorders of both aortic and tricuspid valves; K74.60 Unspecified cirrhosis of liver; I48.0 Paroxysmal atrial fibrillation; N18.30 Chronic kidney disease, stage 3 unspecified; E03.9 Hypothyroidism, unspecified; I12.9 Hypertensive chronic kidney disease with stage 1 through stage 4 chronic kidney disease, or unspecified chronic kidney disease; D50.9 Iron deficiency anemia, unspecified; E87.5 Hyperkalemia; I25.10 Atherosclerotic heart disease of native coronary artery without angina pectoris; E78.00 Pure hypercholesterolemia, unspecified; K21.9 Gastro-esophageal reflux disease without esophagitis; F17.290 Nicotine dependence, other tobacco product, uncomplicated; T36.8X5A Adverse effect of other systemic antibiotics, initial encounter; R09.02 Hypoxemia; Z11.52 Encounter for screening for COVID-19; Z79.01 Long term (current) use of 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s; Z98.84 Bariatric surgery status; Z95.0 Presence of cardiac pacemaker; Z86.73 Personal history of transient ischemic attack (TIA), and cerebral infarction without residual deficits; Z95.3 Presence of xenogenic heart valve
CPT/HCPCS: 36415; 71046; 76705; 80048; 80053; 80076; 82274; 82962; 83735; 83880; 85014; 85018; 85025; 85027; 86850; 86900; 86901; 86920; 86922; 87070; 87205; 87449; 87631; 87633; 93005; 94640; 94668; 97110; 97116; 97162; 97530; 99252; 99285; 99406; J7030; J7040; P9016; A4216; G0463; J0612

== ENCOUNTER → 2023-04-07 | Outpatient (CLI) | payer MEDICARE, OTHER, SELFPAY ==
[2023-04-07 13:31] LABS: Hematocrit 31.5 % (40-54); Hemoglobin 9.5 g/dL (13.0-16.5); Mean Corp Hgb Conc 30.2 g/dL (32-36); Mean Corpuscular Hgb 32.8 pg (27.0-32.0); Mean Corpuscular Volume 108.6 fL (80-94); Mean Platelet Vol. 9.7 fl (6.2-12.0); POSITIVE MORPHOLOGY YES; Platelet Count 152 K/mm3 (150-450); RBC Distribution Width CV 16.6 % (11.6-14.6); RBC Distribution Width SD 65.6 fl (35.1-43.9); White Blood Count 4.3 K/mm3 (4.4-11.0)
[2023-04-07 13:46] LABS: Protein:Creat Ratio 2239 mg/g CRE (0-200)
[2023-04-07 13:53] LABS: Scan Indicated on CBC? Y/N YES- FLAGS NOTED
[2023-04-07 13:54] LABS: Differential Comment SCANNED
[2023-04-07 14:01] LABS: Albumin, Serum 2.7 g/dL (3.2-5.0); BUN 29 mg/dL (7-18); BUN/Creat Ratio 15.7 RATIO (10-20); Calcium,Total 8.5 mg/dL (8.5-10.1); Chloride 116 mmol/L (98-107); Creatinine, Serum 1.85 mg/dL (0.70-1.30); EST Glomerular Filtration Rate 39 mL/min (>60); Est Glom Filt Rate - Afr Amer 47 mL/min (>60); Glucose 69 mg/dL (74-106); Phosphorus 3.6 mg/dL (2.5-4.9); Potassium 5.2 mmol/L (3.5-5.1); Sodium Level 143 mmol/L (136-145)
== END | disposition home or self-care (01) ==
LOC: LAB 13:00
PROVIDERS: PCP Family Medicine; Referring Provider Internal Medicine Nephrology; Visit Provider Internal Medicine Nephrology
DX: N18.4 Chronic kidney disease, stage 4 (severe) (principal)
CPT/HCPCS: 36415; 80069; 82570; 84156; 85027

== ENCOUNTER 2023-04-14 14:16 | Outpatient (CLI) | payer MEDICARE, OTHER, SELFPAY ==
[2023-04-14] MEDS: 0.9% NaCl Peripheral Flush Adult/Peds IV (14:35)
[2023-04-14] MEDS: 0.9% NaCl IVPB Med Flush (250 mL) 15 ML IV (14:36)
[2023-04-14] MEDS: Ferric Carboxymaltose (Injectafer) 750 MG in 0.9% NaCl 250 ML 795 MG IV (14:36)
[2023-04-14 14:38] VITALS: BP 140/78; PULSE 95; RESP 16; TEMP 35.9; O2SAT 94; BMI 26.2
--- OUTSIDE RECORDS SUMMARY | 2023-04-14 14:42 | XMS RPT_ITS | CCD ---
Author Name Unknown Address [id number] [place] [address] [facility] Care Team Providers Care Making Machine Operator Name Role Phone Marisela PATEL, Bruna Ramirez Unavailable Unavailable RUSJULIETH TONG Unavailable Unavailable RUSHIJULIETH SALES D Unavailable Unavailable ALISA, GRACY A Unavailable Unavailable CONSULT, CARDIOLOGY - EP Unavailable Unavail able JULIETH BARRIENTOS Unavailable Unavailable RUSHIJULIETH SALES D Unavailable Unavailable ALISA, GRACY A Unavailable Unavailable CUNNINGHAM, BHAVIK Unavailable Unavailable RUSHIMÓNICA, JULIETH D Unavailable Unavailable ALISA, GRACY A Unavailable Unavailable CUNNINGHAM, BHAVIK Unavailable Unavailable RUSHING, JULIETH D Unavailable Unavailable ALISA, GRACY A Unavailable Unavailable AUGOSTINI, MARY Unavailable Unavailable AUGOSTINI, MARY Unavailable Unavailable ALISA, GRACY A Unavailable Unavailable AUGOSTINI, MARY Unavailable Unavailable AUGOSTINI, MARY Unavailable Unavailable ALISA, GRACY A Unavailable Unavailable AUGOSTINI, MARY Unavailable Unavailable AUGOSTINI, MARY Unavailable Unavailable ALISA, GRACY A Unavailable Unavailable AUGOSTINI, MARY Unavailable Unavailable AUGOSTINI, MARY Unavailable Unavailable ALISA, GRACY A Unavailable Unavailable AUGOSTINI, MARY Unavailable Unavailable AUGOSTINI, MARY Unavailable Unavailable ALISA, GRACY A Unavailable Unavailable HOUMSSE, MAHMOUD Unavailable Unavailable ALISA, GRACY A Unavailable Unavailable ALISA, GRACY A Unavailable Unavailable AUGOSTINI, MARY Unavailable Unavailable AUGOSTINI, MARY Unavailable Unavailable ALISA, GRACY A Unavailable Unavailable ALISA, GRACY A Unavailable Unavailable ALISA, GRACY A Unavailable Unavailable ALISA, GRACY A Unavailable Unavailable HOUMSSE, MAHMOUD Unavailable Unavailable ALISA, GRACY A Unavailable Unavailable ALISA, GRACY A Unavailable Unavailable RUSHING, JULIETH D Unavailable Unavailable ALISA, GRACY A Unavailable Unavailable ALISA, GRACY A Unavailable Unavailable ALISA, GRACY A Unavailable Unavailable HOUMSSE, MAHMOUD Unavailable Unavailable HOUMSSE, MAHMOUD Unavailable Unavailable ALISA, GRACY A Unavailable Unavailable HOUMSSE, MAHMOUD Unavailable Unavailable HOUMSSE, MAHMOUD Unavailable Unavailable ALISA, GRACY A Unavailable Unavailable DEANA, MARÍA B Unavailable Unavailable DEANA, MARÍA B Unavailable Unavailable IMCA Unavailable Unavailable DENILSONNATALIEKIN Dunlap Unavailable Unavailable GACAD, DEVONTE Unavailable Unavailable GACAD, DEVONTE Unavailable Unavailable CARL HUSEYIN C Unavailable Unavailable HUSEYIN HENRY C Unavailable Unavailable MARITZA HIGGINS Admitting Unavailable MARITZA HIGGINS Attending Unavailable Allergies Allergy Classification Reported Allergen(s) Allergy Type Date of Onset Reaction(s) Facility (3 sources) penicillin; Translations: [PENICILLIN] Drug Allergy 1 Rash, [facility] [employer] Work Phone: (2 sources) Penicillins (Antibiotic) drug allergy 1 [employer] Work Phone: (1 source) Penicillins; Translations: [PENICILLINS] Propensity to adverse reactions (disorder) [facility] Repository Medications Completed/Discontinued Medications Medication Drug Class(es) Dates Sig (Normalized) Sig (Original) acetaminophen 300 mg / codeine phosphate 30 mg oral tablet (2 sources) Opioid Agonist Start: 12-01-2012 End: 07-01-2013 take 1 tablet by mouth four times daily as needed for pain ACETAMINOPHEN-COD EINE #3 300-30 MG TABS One tablet by mouth four times daily as needed pain ACETAMINOPHEN-COD EINE [id number] Pete Espinosa MD 200 actuat albuterol 0.09 mg/actuat metered dose inhaler (2 sources) beta2-Adrenergic Agonist Start: 01-30-2012 End: 01-06-2013 take 2 puff(s) by inhalation every four hours as needed for dyspnea VENTOLIN HFA 108 (90 Base) MCG/ACT AERS 2 puff INH every 4hr as needed dyspnea ALBUTEROL SULFATE [id number] Pete Espinosa MD ascorbic acid (1 source) Start: 10-18-2014 take 1 tablet by mouth once daily VITAMIN C CAPS One tablet by mouth daily ASCORBIC ACID CAPS [id number] Ambrocio Whitaker MD aspirin 81 mg delayed release oral tablet (5 sources) Nonsteroidal Anti-inflammatory Drug Start: 07-18-2010 take 1 tablet by mouth once daily DEANGELO ASPIRIN EC LOW DOSE 81 MG TBEC One tablet by mouth daily ASPIRIN [id number] Olman Cunningham MD Problems Active Problems Problem Classification Problem Date Documented Da te Episodic/Chronic Adjustment disorders (2 sources) Adjustment disorder; Translations: [Adjustment disorder, unspecified] Onset: 3 Resolved: 5 10-17-2014 Chronic Cardiac dysrhythmias (7 sources) Ventricular premature beats; Translations: [Premature atrial contraction] Onset: 1 09-10-2010 Chronic Cardiac dysrhythmias (2 sources) Cardiac dysrhythmias Onset: 8 Chronic kidney disease (1 source) End stage renal disease; Translations: [End stage renal disease] Onset: 9 Chronic Chronic obstructive pulmonary disease and bronchiectasis (2 sources) Acute exacerbation of chronic obstructive airways disease; Translations: [Chronic obstructive pulmonary disease with (acute) exacerbation] Onset: 2 Resolved: 3 02-02-2012 Chronic Conduction disorders (3 sources) Mobitz type I incomplete atrioventricular block; Translations: [Heart block ] Onset: 1 Resolved: 5 09-10-2010 Chronic Coronary atherosclerosis and other heart disease (5 sources) Angina pectoris; Translations: [Atherosclerotic heart disease of [place] coronary artery without angina pectoris] Onset: 1 Resolved: 5 09-10-2010 Chronic Coronary atherosclerosis and other heart disease (1 source) Coronary atherosclerosis and other heart disease Onset: 8 Deficiency and other anemia (1 source) Iron deficiency anemia secondary to blood loss (chronic); Translations: [IRON DEFIC ANEMIA SEC BL] Onset: 7 Chronic Deficiency and other anemia (1 source) Deficiency and other anemia Onset: 8 Diabetes mellitus without complication (2 sources) Diabetes mellitus; Translations: [Type 2 diabetes mellitus without complications] Onset: 1 Resolved: 2 09-10-2010 Chronic Disorders of lipid metabolism (2 sources) Hyperlipidemia; Translations: [Hyperlipidemia, unspecified] Onset: 2 07-17-2011 Chronic Essential hypertension (2 sources) Hypertensive episode; Translations: [Elevated blood-pressure reading, without diagnosis of hypertension] Onset: 1 Resolved: 5 10-17-2014 Chronic Gastrointestinal hemorrhage (1 source) Chronic or unspecified gastrojejunal ulcer with hemorrhage; Translations: [CHRON/UNS GASTROJEJUN UL] Onset: 7 Chronic Heart valve disorders (6 sources) Aortic valve stenosis; Translations: [Mitral and aortic stenosis] Onset: 1 Resolved: 5 10-17-2014 Chronic Nutritional deficiencies (1 source) Vitamin D deficiency; Translations: [Vitamin D deficiency] Onset: 5 10-18-2014 Chronic Other and ill-defined heart disease (1 source) Left ventricular hypertrophy; Translations: [Cardiomegaly] Onset: 5 12-27-2014 Chronic Haley-; endo-; and myocarditis; cardiomyopathy (except that caused by tuberculosis or sexually transmitted disease) (1 source) Acute and subacute infective endocarditis; Translations: [Acute and subacute infective endocarditis] Onset: 8 Episodic Retinal detachments; defects; vascular occlusion; and retinopathy (1 source) Unspecified retinal vascular occlusion; Translations: [Unspecified retinal vascular occlusion] Onset: 7 12-08-2016 Chronic Substance-related disorders (2 sources) Tobacco dependence syndrome; Translations: [Nicotine dependence, other tobacco product, uncomplicated] Onset: 1 09-10-2010 Chronic Thyroid disorders (3 sources) Hypothyroidism; Translations: [Hypothyroidism, unspecified] Onset: 1 07-18-2010 Chronic Unclassified (2 sources) Body mass index (BMI) 33.0-33.9, adult; Translations: [Body mass index (BMI) 36.0-36.9, adult] Onset: 3 01-09-2014 Chronic Unclassified (1 source) Bypass of stomach; Translations: [Bariatric surgery status] Onset: 5 10-17-2014 Unclassified (1 source) Adult health examination ; Translations: [Encounter for general adult medical examination without abnormal findings] Onset: 5 10-17-2014 Unclassified (1 source) Personal history of nicotine dependence / Z87.891(ICD-10) Onset: 8 Unclassified (1 source) Other specified symptoms and signs involving the circulatory and respiratory systems / R09.89(ICD-10) Onset: 8 Unclassified (1 source) Hypothyroidism, unspecified / E03.9(ICD-10) Onset: 8 Unclassified (1 source) Sick sinus syndrome (HCC) / I49.5(ICD-10) Onset: 8 Unclassified (1 source) Presence of prosthetic heart valve / Z95.2(ICD-10) Onset: 8 Unclassified (1 source) Encounter for other preprocedural examination / Z01.818(ICD-10) Onset: 8 Unclassified (1 source) Nicotine dependence, other tobacco product, uncomplicated / F17.290(ICD-10) Onset: 8 Unclassified (1 source) Encounter for follow-up examination after completed treatment for conditions other than malignant neoplasm / Z09(ICD-10) Onset: 8 Unclassified (1 source) Atherosclerotic heart disease of [place] coronary artery without angina pectoris / I25.10(ICD-10) Onset: 8 Unclassified (1 source) Other specified postprocedural states / Z98.890(ICD-10) Onset: 8 Unclassified (1 source) Counseling, unspecified / Z71.9(ICD-10) Onset: 8 Unclassified (1 source) Personal history of peptic ulcer disease / Z87.11(ICD-10) Onset: 8 Unclassified (1 source) Rheumatic disorders of both mitral and aortic valves / I08.0(ICD-10) Onset: 8 Unclassified (1 source) Follow-up / 145() Onset: 8 Past or Other Problems Problem Classification Problem Date Documented Da te Episodic/Chronic Allergic reactions (1 source) Allergy status to penicillin; Translations: [ALLERGY STATUS TO PENICI] Onset: 08-17-2016 Episodic Deficiency and other anemia (2 sources) Iron deficiency anemia; Translations: [Anemia, unspecified] Onset: 07-18-2010 07-18-2010 Episodic Gastroduodenal ulcer (1 source) Personal history of peptic ulcer disease; Translations: [Personal history of peptic ulcer disease] Onset: 05-07-2017 Episodic Gastrointestinal hemorrhage (2 sources) Melena; Translations: [MELENA] Onset: 08-17-2016 Episodic Heart valve disorders (2 sources) Heart murmur; Translations: [Cardiac murmur, unspecified] Onset: 09-10-2010 Resolved: 10-17-2014 10-17-2014 Episodic Inflammation, infection of eye (2 sources) Acute conjunctivitis; Translations: [Unspecified acute conjunctivitis, bilateral] Onset: 02-24-2011 Resolved: 12-22-2011 12-22-2011 Episodic Malaise and fatigue (2 sources) Fatigue; Translations: [Other fatigue] Onset: 09-10-2010 Resolved: 10-17-2014 10-17-2014 Episodic Nonspecific chest pain (2 sources) Chest pain, unspecified; Translations: [Chest pain, unspecified] Onset: 09-10-2010 Resolved: 10-17-2014 10-17-2014 Episodic Nutritional deficiencies (1 source) Cobalamin deficiency; Translations: [Deficiency of other specified B group vitamins] Onset: 10-18-2014 10-18-2014 Episodic Other aftercare (1 source) Encounter for follow-up examination after completed treatment for conditions other than malignant neoplasm; Translations: [Encounter for follow-up examination after completed treatment for conditions other than malignant neoplasm] Onset: 06-09-2017 Episodic Other circulatory disease (2 sources) Carotid bruit; Translations: [Other specified symptoms and signs involving the circulatory and respiratory systems] Onset: 12-08-2016 12-08-2016 Episodic Other fractures (2 sources) Fracture of rib; Translations: [Fracture of one rib, right side] Onset: 12-01-2012 Resolved: 10-17-2014 12-01-2012 Episodic Other gastrointestinal disorders (1 source) Bariatric surgery status; Translations: [BARIATRIC SURGERY STATUS] Onset: 08-17-2016 Episodic Other lower respiratory disease (2 sources) Dyspnea; Translations: [Dyspnea, unspecified] Onset: 09-10-2010 Resolved: 10-17-2014 10-17-2014 Episodic Other non-traumatic joint disorders (2 sources) Pain in wrist; Translations: [Pain in right wrist] Onset: 09-30-2010 Resolved: 10-22-2010 09-30-2010 Episodic Other skin disorders (2 sources) Infected sebaceous cyst; Translations: [Sebaceous cyst] Onset: 01-23-2012 Resolved: 03-25-2013 03-25-2013 Episodic Other upper respiratory infections (2 sources) Acute laryngitis; Translations: [Acute laryngitis] Onset: 02-24-2011 Resolved: 12-22-2011 12-22-2011 Episodic Otitis media and related conditions (2 sources) Acute otitis media; Translations: [Otitis media, unspecified, left ear] Onset: 12-22-2011 Resolved: 02-02-2012 02-02-2012 Episodic Screening or history of mental health and substance abuse (1 source) Personal history of nicotine dependence; Translations: [Personal history of nicotine dependence] Onset: 05-07-2017 Episodic Skin and subcutaneous tissue infections (4 sources) Cellulitis; Translations: [Abscess] Onset: 03-03-2012 Resolved: 12-01-2012 03-03-2012 Episodic Unclassified (2 sources) Encounter for screening for malignant neoplasm of prostate; Translations: [Electrocardiogram abnormal] Onset: 09-10-2010 07-01-2013 Episodic Unclassified (1 source) Other specified postprocedural states; Translations: [Other specified postprocedural states] Onset: 05-07-2017 Episodic Unclassified (1 source) Follow-up; Translations: [Follow-up] Onset: 06-04-2017 Unclassified (1 source) Counseling, unspecified; Translations: [Counseling, unspecified] Onset: 05-07-2017 Unclassified (1 source) Encounter for other preprocedural examination; Translations: [Encounter for other preprocedural examination] Onset: 04-20-2017 Results Test Name Value Interpretation Reference Range Facil ity Vital Signs Date Time Vital Sign Value Performing Clinician Kehinde reece 02-04-2016 08:39-0500 BMI (Body Mass Index) 27.87 kg/m2 Bruna [facility] Work Phone: 02-04-2016 08:39-0500 BP Diastolic 68 mm[Hg] [facility] Work Phone: 02-04-2016 08:39-0500 BP Systolic 118 mm[Hg] Bruna Antonio RN [facility] Work Phone: 02-04-2016 08:39-0500 BSA (Body Surface Area) 2.35 m2 Bruna Antonio RN [facility] Work Phone: 02-04-2016 08:39-0500 Pulse (Heart Rate) 56 /min Bruna Antonio RN [facility] Work Phone: 02-04-2016 08:39-0500 Respiratory Rate 16 /min Bruna Antonio RN [facility] Work Phone: 02-04-2016 08:39-0500 Weight 103.87 kg Bruna Antonio RN [facility] Work Phone: 10-17-2014 13:07-0400 Body Temperature 98.1 [degF] Bruna Antonio RN [facility] Work Phone: 12-24-2011 14:38-0400 Body Temperature 97.39 [degF] Bruna Antonio RN [facility] Work Phone: 12-24-2011 14:38-0400 Height 193.04 cm Bruna Antonio RN [facility] Work Phone: 12-24-2011 14:38-0400 Weight 130.55 kg Bruna Antonio RN [facility] Work Phone: 07-18-2010 10:31-0400 Height 193.04 cm Bruna Antonio RN [facility] Work Phone: Encounters Encounter Date Encounter Type Care Provider Facility Start: 05-13-2018 End: 05-13-2018 Patient encounter procedure MARITZA HIGGINS [facility] Start: 03-11-2018 End: 03-11-2018 Patient encounter procedure [facility]USEYIN [facility] Start: 06-09-2017 End: 06-09-2017 Ambulatory GRACY CUELLAR [facility] Start: 06-09-2017 Ambulatory JULIETH BARRIENTOS [facility] Start: 06-05-2017 [facility] Start: 06-04-2017 Ambulatory PRICE ASHLEY [facility] Start: 05-30-2017 [facility]: [facility] Start: 05-17-2017 Ambulatory MARY [facility] Start: 05-07-2017 End: 05-15-2017 Evaluation and management of inpatient JULIETH Josefina [facility] Start: 04-20-2017 Ambulatory BHAVIK CUNNINGHAM [facility] Start: 04-20-2017 Ambulatory BHAVIK CUNNINGHAM [facility] Start: 04-10-2017 [facility] Start: 08-17-2016 End: 08-20-2016 Evaluation and management of inpatient MARÍAGIBRAN ROCHAHARY Facility:[facility] Procedures Date Procedure Procedure Detail Performing Clinician Start: 12-23-2016 End: 12-23-2016 *Hepatic Function Panel Ambrocio Whitaker MD Start: 12-23-2016 End: 12-23-2016 Lipid 1996 panel - Serum or Plasma Ambrocio Whitaker MD Start: 12-08-2016 End: 12-22-2016 Echocardiography Ambrocio Whitaker MD Start: 08-19-2016 EXC STOMACH KEIRA/ART OPEN PROVIDER UNKNOWN Start: 02-04-2016 End: 12-08-2016 Echocardiography Ambrocio Whitaker MD Start: 02-04-2016 End: 02-04-2016 Follow Up Appt 1 year Ambrocio Rocha Start: 02-04-2016 End: 02-04-2016 PFM Ambrocio Whitaker MD Start: 01-10-2016 End: 01-14-2016 Echocardiography Ambrocio Whitaker MD Start: 12-22-2015 End: 01-16-2016 *Hepatic Function Panel Ambrocio Whitaker MD Start: 12-22-2015 End: 01-16-2016 Lipid 1996 panel - Serum or Plasma Ambrocio Whitaker MD Start: 01-22-2015 End: 02-27-2015 *Hepatic Function Panel Ambrocio Whitaker MD Start: 01-22-2015 End: 01-10-2016 Carotid duplex Ambrocio Whitaker MD Start: 01-22-2015 End: 01-23-2015 Documentation of current medications Ambrocio Whitaker MD Start: 01-22-2015 End: 01-22-2015 Follow Up Appt 1 year Ambrocio Rocha Start: 01-22-2015 End: 02-27-2015 Lipid 1996 panel - Serum or Plasma Ambrocio Whitaker MD Start: 01-22-2015 End: 01-22-2015 PFM Ambrocio Whitaker MD Start: 01-22-2015 End: 01-23-2015 Smoking cessation education Ambrocio holliday MD Start: 01-01-2015 End: 01-01-2015 Ferritin [Mass/volume] in Serum or Plasma Gracy Ramirez [employer] Work Phone: Start: 12-27-2014 End: 12-27-2014 Cobalamin (Vitamin B12) [Mass/volume] in Serum or Plasma Gracy Ramirez [employer] Work Phone: Start: 12-26-2014 End: 12-26-2014 Thyrotropin [Units/volume] in Serum or Plasma Gracy Ramirez [employer] Work Phone: Start: 12-14-2014 End: 12-27-2014 Echocardiography Ambrocio Whitaker MD Start: 10-18-2014 End: 10-18-2014 *Hepatic Function Panel Ambrocio Whitaker MD Start: 10-18-2014 End: 10-18-2014 Lipid 1996 panel - Serum or Plasma Ambrocio Whitaker MD Start: 10-17-2014 End: 10-18-2014 *CBC with Differential Gracy Rocha [facility] Work Phone: Start: 10-17-2014 End: 10-18-2014 *CMP Complete Metabolic Panel Gracy elias DO Work Phone: Start: 10-17-2014 End: 10-18-2014 *PTH (Parathyroid Hormone) Gracy jamison DO Work Phone: Start: 10-17-2014 End: 10-18-2014 25-Hydroxyvitamin D2+25-Hydroxyvitamin D3 [Mass/volume] in Serum or Plasma Gracy Cuellar DO Work Phone: Start: 10-17-2014 End: 10-18-2014 Cobalamin (Vitamin B12) [Mass/volume] in Serum or Plasma Gracy Cuellar DO Work Phone: Start: 10-17-2014 End: 10-18-2014 Ferritin [Mass/volume] in Serum or Plasma Gracy Cuellar DO Work Phone: Start: 10-17-2014 End: 10-18-2014 Folate [Mass/volume] in Serum or Plasma Gracy Cuellar DO Work Phone: Start: 10-17-2014 End: 10-18-2014 Lipid 1996 panel - Serum or Plasma Gracy Cuellar DO Work Phone: Start: 10-17-2014 End: 10-18-2014 Prostate specific Ag [Mass/volume] in Serum or Plasma Gracy Ramirez Alisa DO Work Phone: Start: 10-17-2014 End: 10-18-2014 Thyrotropin [Units/volume] in Serum or Plasma Gracy Cuellar DO Work Phone: Start: 01-09-2014 End: 01-09-2014 *Hepatic Function Panel Ambrocio Whitaker MD Start: 01-09-2014 End: 01-10-2016 Ecg routine ecg w/least 12 lds w/i&r Ambrocio Whitaker MD Start: 01-09-2014 End: 01-09-2014 Follow Up Appt 1 year Ambrocio Rocha Start: 01-09-2014 End: 01-09-2014 Lipid 1996 panel - Serum or Plasma Ambrocio Whitaker MD Start: 12-22-2013 End: 01-10-2016 Echocardiography Ambrocio Whitaker MD Start: 12-21-2013 End: 12-27-2013 *Hepatic Function Panel Ambrocio Whitaker MD Start: 12-21-2013 End: 12-27-2013 Lipid 1996 panel - Serum or Plasma Ambrocio Whitaker MD Start: 08-12-2013 End: 11-07-2013 Thyrotropin [Units/volume] in Serum or Plasma Pete Espinosa MD Start: 07-01-2013 End: 11-07-2013 Prostate specific Ag [Mass/volume] in Serum or Plasma Pete Espinosa MD Start: 05-09-2013 End: 06-09-2013 Thyrotropin [Units/volume] in Serum or Plasma Pete Espinosa MD Start: 01-06-2013 End: 01-06-2013 Follow Up Appt 1 year Ambrocio Rocha Start: 01-06-2013 End: 01-06-2013 PFM Ambrocio Whitaker MD Start: 12-22-2012 End: 01-10-2016 Echocardiography Ambrocio Whitaker MD Start: 12-14-2012 End: 01-03-2013 Thyrotropin [Units/volume] in Serum or Plasma Pete Espinosa MD Start: 12-01-2012 End: 12-01-2012 CBC W Auto Differential panel - Blood Pete Espinosa MD Start: 12-01-2012 End: 12-01-2012 Thyrotropin [Units/volume] in Serum or Plasma Pete Espinosa MD Start: 10-25-2012 End: 12-01-2012 Thyrotropin [Units/volume] in Serum or Plasma Pete Espinosa MD Start: 07-16-2012 End: 01-10-2016 *Hepatic Function Panel Ambrocio Whitaker MD Start: 07-16-2012 End: 10-18-2014 Lipid 1996 panel - Serum or Plasma Ambrocio Whitaker MD Start: 12-22-2011 End: 12-22-2011 Ceftriaxone (Rocephin) per 250mg Pete Espinosa MD Start: 12-22-2011 End: 12-01-2012 Thyrotropin [Units/volume] in Serum or Plasma Pete Espinosa MD Start: 07-11-2011 End: 07-17-2011 *CBC with Differential Ambrocio Whitaker MD Start: 07-11-2011 End: 07-17-2011 *Hepatic Function Panel Ambrocio Whitaker MD Start: 07-11-2011 End: 07-11-2011 Follow Up Appt 6 months Ambrocio Whitaker MD Start: 07-11-2011 End: 07-17-2011 Lipid 1996 panel - Serum or Plasma Ambrocio Whitaker MD Start: 07-11-2011 End: 07-17-2011 Thyrotropin [Units/volume] in Serum or Plasma Ambrocio Whitaker MD Start: 07-11-2011 End: 07-17-2011 Thyroxine (T4) [Mass/volume] in Serum or Plasma Ambrocio Whitaker MD Start: 09-30-2010 End: 10-07-2010 Assay of thyroid stimulating hormone tsh Olman Cunningham MD Start: 09-30-2010 End: 10-07-2010 Blood count manual cell count each Olman Cunningham MD Start: 09-30-2010 End: 10-07-2010 Comprehensive metabolic panel Olman richardson MD Start: 09-30-2010 End: 09-30-2010 Follow Up as scheduled Pete Espinosa MD Start: 09-30-2010 End: 10-07-2010 Lipid panel Olman Cunningham MD Start: 07-18-2010 End: 10-07-2010 Blood count manual cell count each Olman Cunningham MD Plan of Treatment Date Care Activity Detail Author Start: 12-23-2017 End: 12-26-2016 *Hepatic Function Panel *Hepatic Function Panel [employer] Work Phone: Start: 12-23-2017 End: 12-26-2016 Lipid panel [AGGREGATE] *Lipid Profile CC PCP [facility] Work Phone: Start: 01-26-2017 End: 01-26-2017 Appointment Appointment [facility] Work Phone: Start: 01-09-2017 End: 12-23-2016 *Hepatic Function Panel *Hepatic Function Panel [employer] Work Phone: Start: 01-09-2017 End: 12-23-2016 Lipid panel [AGGREGATE] *Lipid Profile CC PCP [facility] Work Phone: Start: 12-08-2016 End: 12-08-2016 Carotid duplex Carotid duplex [employer] Work Phone: Start: 12-08-2016 End: 12-08-2016 Echocardiography Echocardiogram (complete) [facility] Work Phone: Start: 02-04-2016 End: 08-28-2016 Echocardiography Echocardiogram (complete) [facility] Work Phone: Start: 02-04-2016 End: 02-04-2016 Follow Up Appt 1 year Follow Up Appt 1 year [facility] [employer] Work Phone: Start: 02-04-2016 End: 02-04-2016 PFM PFM [facility] Work Phone: Start: 01-10-2016 End: 01-10-2016 Echocardiography Echocardiogram (complete) [facility] Work Phone: Start: 12-22-2015 End: 01-16-2016 *Hepatic Function Panel *Hepatic Function Panel [employer] Work Phone: Start: 12-22-2015 End: 01-16-2016 Lipid panel [AGGREGATE] *Lipid Profile CC PCP [facility] Work Phone: Start: 01-22-2015 End: 02-27-2015 *Hepatic Function Panel *Hepatic Function Panel [employer] Work Phone: Start: 01-22-2015 End: 01-22-2015 Carotid duplex Carotid duplex [facility] [employer] Work Phone: Start: 01-22-2015 End: 01-22-2015 Follow Up Appt 1 year Follow Up Appt 1 year [facility] [employer] Work Phone: Start: 01-22-2015 End: 02-27-2015 Lipid panel [AGGREGATE] *Lipid Profile CC PCP [facility] Work Phone: Start: 01-22-2015 End: 01-22-2015 PFM PFM [facility] Work Phone: Start: 01-18-2015 End: 10-18-2014 25-Hydroxyvitamin D2+25-Hydroxyvitamin D3 [Mass/volume] in Serum or Plasma *Vitamin D (Calciferol) [facility] [employer] Work Phone: Start: 01-18-2015 End: 12-27-2014 Cobalamins (Vitamin B12) *B-12 [facility] Work Phone: Start: 01-18-2015 End: 01-01-2015 Ferritin *Ferritin [facility] Work Phone: Start: 01-18-2015 End: 12-26-2014 Thyroid stimulating hormone (TSH) *TSH [facility] Work Phone: Start: 01-09-2015 End: 10-18-2014 *Hepatic Function Panel *Hepatic Function Panel [facility] Work Phone: Start: 01-09-2015 End: 10-18-2014 Lipid panel [AGGREGATE] *Lipid Profile CC PCP [facility] Work Phone: Start: 12-27-2014 End: 01-09-2014 *Hepatic Function Panel *Hepatic Function Panel [facility] Work Phone: Start: 12-27-2014 End: 01-09-2014 Lipid panel [AGGREGATE] *Lipid Profile CC PCP [facility] Work Phone: Start: 12-14-2014 End: 12-14-2014 Echocardiography Echocardiogram (complete) [facility] Work Phone: Start: 10-17-2014 End: 10-18-2014 *CBC with Differential *CBC with Differential [facility] Work Phone: Start: 10-17-2014 End: 10-18-2014 *CMP Complete Metabolic Panel *CMP Complete Metabolic Panel [facility] Work Phone: Start: 10-17-2014 End: 10-18-2014 *PTH (Parathyroid Hormone) *PTH (Parathyroid Hormone) [facility] Work Phone: Start: 10-17-2014 End: 10-18-2014 25-Hydroxyvitamin D2+25-Hydroxyvitamin D3 [Mass/volume] in Serum or Plasma *Vitamin D (Calciferol) [facility] Work Phone: Start: 10-17-2014 End: 10-18-2014 Cobalamins (Vitamin B12) *B-12 [facility] Work Phone: Start: 10-17-2014 End: 10-18-2014 Ferritin *Ferritin [facility] Work Phone: Start: 10-17-2014 End: 10-18-2014 Folate *FOLS Folates-Folic Acid, Serum [employer] [facility] Work Phone: Start: 10-17-2014 End: 10-18-2014 Lipid panel [AGGREGATE] *Lipid Profile [facility] Work Phone: Start: 10-17-2014 End: 10-18-2014 PSA *PSA (Prostate Specific Antigen) [employer] Work Phone: Start: 10-17-2014 End: 10-18-2014 Thyroid stimulating hormone (TSH) *TSH [facility] Work Phone: Start: 01-09-2014 End: 01-09-2014 *Hepatic Function Panel *Hepatic Function Panel [facility] Work Phone: Start: 01-09-2014 End: 01-10-2016 Ecg routine ecg w/least 12 lds w/i&r EKG (In office) [employer] Work Phone: Start: 01-09-2014 End: 01-09-2014 Follow Up Appt 1 year Follow Up Appt 1 year [facility] Phone: Start: 01-09-2014 End: 01-09-2014 Follow Up Appt 6 months Follow Up Appt 6 months [facility] Work Phone: Start: 01-09-2014 End: 01-09-2014 Lipid panel [AGGREGATE] *Lipid Profile CC PCP [facility] Work Phone: Start: 01-09-2014 End: 01-09-2014 MMM MMM [facility] Work Phone: Start: 12-22-2013 End: 12-26-2013 Echocardiography Echocardiogram (complete) [facility] Work Phone: Start: 12-21-2013 End: 12-27-2013 *Hepatic Function Panel *Hepatic Function Panel [facility] Work Phone: Start: 12-21-2013 End: 12-27-2013 Lipid panel [AGGREGATE] *Lipid Profile CC PCP [facility] Work Phone: Start: 08-12-2013 End: 11-07-2013 Thyroid stimulating hormone (TSH) *TSH [facility] Work Phone: Start: 07-01-2013 End: 11-07-2013 PSA *PSA, Annual Screening [facility] Work Phone: Start: 05-09-2013 End: 06-09-2013 Thyroid stimulating hormone (TSH) *TSH [facility] Work Phone: Start: 01-06-2013 End: 01-06-2013 Follow Up Appt 1 year Follow Up Appt 1 year [facility] Work Phone: Start: 01-06-2013 End: 01-06-2013 PFM PFM [facility] Work Phone: Start: 12-22-2012 End: 12-22-2012 Echocardiography Echocardiogram (complete) [facility] Work Phone: Start: 12-14-2012 End: 01-03-2013 Thyroid stimulating hormone (TSH) *TSH [facility] Work Phone: Start: 12-01-2012 End: 12-01-2012 CBC W Auto Differential panel - Blood *CBC without Diff [facility] [employer] Work Phone: Start: 12-01-2012 End: 12-01-2012 Thyroid stimulating hormone (TSH) *TSH [facility] Work Phone: Start: 10-25-2012 End: 12-01-2012 Thyroid stimulating hormone (TSH) *TSH [facility] Work Phone: Start: 07-16-2012 End: 01-10-2016 *Hepatic Function Panel *Hepatic Function Panel [facility] Work Phone: Start: 07-16-2012 End: 10-18-2014 Lipid panel [AGGREGATE] *Lipid Profile [facility] Work Phone: Start: 12-22-2011 End: 12-22-2011 Ceftriaxone sodium injection Ceftriaxone (Rocephin) per 250mg [facility] Work Phone: Start: 12-22-2011 End: 12-01-2012 Thyroid stimulating hormone (TSH) *TSH [facility] Work Phone: Start: 07-11-2011 End: 07-17-2011 *CBC with Differential *CBC with Differential [facility] Work Phone: Start: 07-11-2011 End: 07-17-2011 *Hepatic Function Panel *Hepatic Function Panel [facility] Work Phone: Start: 07-11-2011 End: 07-11-2011 Follow Up Appt 6 months Follow Up Appt 6 months [facility] Work Phone: Start: 07-11-2011 End: 07-17-2011 Lipid panel [AGGREGATE] *Lipid Profile [facility] Work Phone: Start: 07-11-2011 End: 07-17-2011 Thyroid stimulating hormone (TSH) *TSH [facility] Work Phone: Start: 07-11-2011 End: 07-17-2011 Thyroxine (T4) *T4 (Total) [facility] Work Phone: Start: 09-30-2010 End: 10-07-2010 Blood count manual cell count each *CBC with Differential [facility] Work Phone: Start: 09-30-2010 End: 10-07-2010 Comprehensive metabolic panel *CMP Complete Metabolic Panel [facility] Work Phone: Start: 09-30-2010 End: 09-30-2010 Follow Up as scheduled Follow Up as scheduled [facility] Work Phone: Start: 09-30-2010 End: 10-07-2010 Lipid panel *Lipid Profile [facility] Work Phone: Start: 09-30-2010 End: 10-07-2010 Thyroid stimulating hormone (TSH) *TSH [facility] Work Phone: Start: 07-18-2010 End: 10-07-2010 Blood count manual cell count each *CBC with Differential [facility] Work Phone: Patient Education [facility] Work Phone: Payers Date Payer Category Payer Unknown [id number] Summary Purpose Family History No Family History Records FoundNo Family History Records FoundNo Family History Records FoundNo Family History Records Found Advance Directives No Advanced Directives Records FoundNo Advanced Directives Records FoundNo Advanced Directives Records FoundNo Advanced Directives Records Found Procedure Findings Note HNO ID: [id number] Author: Chip Higgins Service: Vascular Surgery Author Type: Physician Type: Brief Op Note Filed: 05/13/2018 1:50 PM Note Text: VASCULAR SURGERY POST PROCEDURE NOTE DATE: 05/13/18 NAME: Dakota White LOG ID: [id number] Pre-Procedure Diagnosis: recovered renal function Post Procedure Diagnosis: Same. Valve Repairer: Dr. Maritza Higgins (Primary) Procedure: R IJ tunneled dialysis catheter removal Anesthesia: Local Findings: successful Estimated Blood Loss: Minimal (Less Than 25 mL). Specimen: None. Complications: None. . Full report with procedural details to follow and will become available under Imaging Reports. Please contact for any questions or concerns. Maritza Higgins MD Additional Source Comments (unrecognized sect ion and content) No Status Records FoundNo Status Records FoundNo Status Records FoundNo Status Records Found INFORMATION SOURCE (unrecogn ized section and content) DATE CREATED AUTHOR AUTHOR'S ORGANIZ ATION 09/16/2017 [facility] DATE CREATED AUTHOR AUTHOR'S ORGANIZ ATION 03/14/2018 [facility] DATE CREATED AUTHOR AUTHOR'S ORGANIZ ATION 05/13/2018 [facility] FOR RECORDS PERTAINING TO PATIENTS WHO ARE OR HAVE BEEN ENROLLED IN A CHEMICAL DEPENDENCY/SUBSTANCEABUSE PROGRAM, SOME INFORMATION MAY BE OMITTED. This clinical summary was aggregated from multiple sources. Caution should be exercised in using it in the provision of clinical care. This summary normalizes information from multiple sources, and as a consequence, information in this document may materially change the coding, format and clinical context of patient data. In addition, data may be omitted in some cases. CLINICAL DECISIONS SHOULD BE BASED ON THE PRIMARY CLINICAL RECORDS. [facility] [employer] provides no warranty or guarantee of the accuracy or completeness of information in this document.
[2023-04-14 15:40] VITALS: BP 130/66; PULSE 60; RESP 16; TEMP 36.1; O2SAT 95
== END 2023-04-14 14:17 | disposition home or self-care (01) ==
LOC: MEDOUTP 14:17
PROVIDERS: PCP Family Medicine; Referring Provider Family Medicine; Visit Provider Family Medicine
DX: D50.9 Iron deficiency anemia, unspecified (principal); N18.32 Chronic kidney disease, stage 3b
CPT/HCPCS: 96365; J1439; J7050; A4216

== ENCOUNTER 2023-04-21 14:21 | Outpatient (CLI) | payer MEDICARE, OTHER, SELFPAY ==
[2023-04-21 14:42] VITALS: BP 109/70; PULSE 97; RESP 16; TEMP 36.1; O2SAT 94; BMI 26.2
--- OUTSIDE RECORDS SUMMARY | 2023-04-21 14:59 | XMS RPT_ITS | CCD ---
Author Name Unknown Address [address] [place] [address] [facility] Team Providers Care Radio Operator Ground Name Role Phone Marisela PATEL, Bruna Ramirez Unavailable Unavailable RUSJULIETH TONG Unavailable Unavailable RUSHIJULIETH SALES D Unavailable Unavailable ALISA, GRACY A Unavailable Unavailable CONSULT, CARDIOLOGY - EP Unavailable Unavail able JULIETH BARRIENTOS Unavailable Unavailable RUSHIJULIETH SALES Unavailable Unavailable ALISA, GRACY A Unavailable Unavailable [...] Translations: [PENICILLIN] Drug Allergy 1 Rash, AOF [employer] [facility] Work Phone: (2 sources) Penicillins (Antibiotic) drug allergy 1 [employer] Work Phone: (1 source) Penicillins; Translations: [PENICILLINS] Propensity to adverse reactions (disorder) [facility] Repository Medications Completed/Discontinued Medications Medication Drug Class(es) Dates Sig (Normalized) Sig (Original) acetaminophen 300 mg / codeine phosphate 30 mg oral tablet (2 sources) Opioid Agonist Start: 12-01-2012 End: 07-01-2013 take 1 tablet by mouth four times daily as needed for pain ACETAMINOPHEN-COD EINE #3 300-30 MG TABS One tablet by mouth four times daily as needed pain ACETAMINOPHEN-COD EINE [id number] Pete Espinosa MD 200 actuat albuterol 0.09 mg/actuat metered dose inhaler (2 sources) beta2-Adrenergic Agonist Start: 01-30-2012 End: 01-06-2013 take 2 puff(s) by inhalation every four hours as needed for dyspnea VENTOLIN HFA 108 (90 Base) MCG/ACT AERS 2 puff INH every 4hr as needed dyspnea ALBUTEROL SULFATE [id number] Pete Espinosa MD ascorbic acid (1 source) Start: 10-18-2014 take 1 tablet by mouth once daily VITAMIN C CAPS One tablet by mouth daily ASCORBIC ACID CAPS [id number] Ambrocio Whitaker MD aspirin 81 mg delayed release oral tablet (5 sources) Nonsteroidal Anti-inflammatory Drug Start: 07-18-2010 take 1 tablet by mouth once daily DEANGELO ASPIRIN EC LOW DOSE 81 MG TBEC One tablet by mouth daily ASPIRIN [id number] Olman Cunningham MD Problems Active Problems Problem [...] Angina pectoris; Translations: [Atherosclerotic heart disease of [place] coronary artery without angina pectoris] Onset: 1 [...] Unclassified (1 source) 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) [...] End: 05-13-2018 Patient encounter procedure MARITZA HIGGINS [facility] Start: 03-11-2018 End: 03-11-2018 Patient encounter procedure HUSEYIN [facility] Start: 06-09-2017 End: 06-09-2017 Ambulatory GRACY CUELLAR [facility] Start: 06-09-2017 Ambulatory JULIETH BARRIENTOS [facility] Start: 06-05-2017 [facility] Start[facility] 06-04-2017 Ambulatory PRICE ASHLEY [facility] Start: 05-30-2017 [facility]2017 [facility] 05-20-2017 [facility] Start: 05-18-2017 [facility] Start: 05-17-2017 Ambulatory [facility]ARY [facility] Start: 05-07-2017 End: 05-15-2017 Evaluation and management of inpatient JULIETH Josefina [facility] Start: 04-20-2017 Ambulatory BHAVIK CUNNINGHAM [facility] Start: 04-20-2017 Ambulatory BHAVIK CUNNINGHAM [facility] Start: 04-10-2017 [facility] Start: 08-17-2016 End: 08-20-2016 Evaluation and management of inpatient MARÍAGIBRAN ROCHAHARY Facility:[facility] Procedures Date Procedure Procedure Detail Performing [...] [Mass/volume] in Serum or Plasma Gracy Ramirez [employer] Work Phone: Start: 12-27-2014 End: 12-27-2014 Cobalamin (Vitamin B12) [Mass/volume] in Serum or Plasma Gracy Ramirez [employer] Work Phone: Start: 12-26-2014 End: 12-26-2014 Thyrotropin [Units/volume] in Serum or Plasma Gracy Ramirez [employer] Work Phone: Start: 12-14-2014 End: 12-27-2014 Echocardiography [...] 12-26-2016 *Hepatic Function Panel *Hepatic Function Panel [employer] Work Phone: Start: 12-23-2017 End: 12-26-2016 Lipid panel [AGGREGATE] *Lipid Profile CC PCP [facility] [place] Work Phone: Start: 01-26-2017 End: 01-26-2017 Appointment Appointment [facility] [place] Work Phone: Start: 01-09-2017 End: 12-23-2016 *Hepatic Function Panel *Hepatic Function Panel [employer] Work Phone: Start: 01-09-2017 End: 12-23-2016 Lipid panel [AGGREGATE] *Lipid Profile CC PCP [facility] [place] Work Phone: Start: 12-08-2016 End: 12-08-2016 Carotid duplex Carotid duplex [employer] Work Phone: Start: 12-08-2016 End: 12-08-2016 Echocardiography Echocardiogram (complete) [facility] Work Phone: Start: 02-04-2016 End: 08-28-2016 Echocardiography Echocardiogram (complete) [facility] Work Phone: Start: 02-04-2016 End: 02-04-2016 Follow Up Appt 1 year Follow Up Appt 1 year [facility] [place] Work Phone: Start: 02-04-2016 End: 02-04-2016 PFM PFM [facility] [place] Work Phone: Start: 01-10-2016 End: 01-10-2016 Echocardiography Echocardiogram (complete) [facility] [place] Work Phone: Start: 12-22-2015 End: 01-16-2016 *Hepatic Function Panel *Hepatic Function Panel [employer] Work Phone: Start: 12-22-2015 End: 01-16-2016 Lipid panel [AGGREGATE] *Lipid Profile CC PCP [facility] [place] Work Phone: Start: 01-22-2015 End: 02-27-2015 *Hepatic Function Panel *Hepatic Function Panel [employer] Work Phone: Start: 01-22-2015 End: 01-22-2015 Carotid duplex Carotid duplex [facility] [place] Work Phone: Start: 01-22-2015 End: 01-22-2015 Follow Up Appt 1 year Follow Up Appt 1 year [facility] [place] Work Phone: Start: 01-22-2015 End: 02-27-2015 Lipid panel [AGGREGATE] *Lipid Profile CC PCP [facility] Work Phone: Start: 01-22-2015 End: 01-22-2015 PFM PFM [facility] [place] Work Phone: Start: 01-18-2015 End: 10-18-2014 25-Hydroxyvitamin D2+25-Hydroxyvitamin D3 [Mass/volume] in Serum or Plasma *Vitamin D (Calciferol) [facility] [place] Work Phone: Start: 01-18-2015 End: 12-27-2014 Cobalamins (Vitamin B12) *B-12 [facility] Work Phone: Start: 01-18-2015 End: 01-01-2015 Ferritin *Ferritin [facility] Work Phone: Start: 01-18-2015 End: 12-26-2014 Thyroid stimulating hormone (TSH) *TSH [facility] Work Phone: Start: 01-09-2015 End: 10-18-2014 *Hepatic Function Panel *Hepatic Function Panel [facility] Work Phone: Start: 01-09-2015 End: 10-18-2014 Lipid panel [AGGREGATE] *Lipid Profile CC PCP [facility] Work Phone: Start: 12-27-2014 End: 01-09-2014 *Hepatic Function Panel *Hepatic Function Panel [facility] Work Phone: Start: 12-27-2014 End: 01-09-2014 Lipid panel [AGGREGATE] *Lipid Profile CC PCP [facility] Work Phone: Start: 12-14-2014 End: 12-14-2014 Echocardiography Echocardiogram (complete) [facility] Work Phone: Start: 10-17-2014 End: 10-18-2014 *CBC with Differential *CBC with Differential [facility] Work Phone: Start: 10-17-2014 End: 10-18-2014 *CMP Complete Metabolic Panel *CMP Complete Metabolic Panel [facility] Work Phone: Start: 10-17-2014 End: 10-18-2014 *PTH (Parathyroid Hormone) *PTH (Parathyroid Hormone) [facility] Work Phone: Start: 10-17-2014 End: 10-18-2014 25-Hydroxyvitamin D2+25-Hydroxyvitamin D3 [Mass/volume] in Serum or Plasma *Vitamin D (Calciferol) [facility] Work Phone: Start: 10-17-2014 End: 10-18-2014 Cobalamins (Vitamin B12) *B-12 [facility] Work Phone: Start: 10-17-2014 End: 10-18-2014 Ferritin *Ferritin [facility] Work Phone: Start: 10-17-2014 End: 10-18-2014 Folate *FOLS Folates-Folic Acid, Serum [employer] Work Phone: Start: 10-17-2014 End: 10-18-2014 Lipid panel [AGGREGATE] *Lipid Profile [employer] Work Phone: Start: 10-17-2014 End: 10-18-2014 PSA *PSA (Prostate Specific Antigen) [employer] Work Phone: Start: 10-17-2014 End: 10-18-2014 Thyroid stimulating hormone (TSH) *TSH [employer] Work Phone: Start: 01-09-2014 End: 01-09-2014 *Hepatic Function Panel *Hepatic Function Panel [employer] Work Phone: Start: 01-09-2014 End: 01-10-2016 Ecg routine ecg w/least 12 lds w/i&r EKG (In office) [employer] Work Phone: Start: 01-09-2014 End: 01-09-2014 Follow Up Appt 1 year Follow Up Appt 1 year [employer] Phone: Start: 01-09-2014 End: 01-09-2014 Follow Up Appt 6 months Follow Up Appt 6 months [employer] Work Phone: Start: 01-09-2014 End: 01-09-2014 Lipid panel [AGGREGATE] *Lipid Profile CC PCP [employer] Work Phone: Start: 01-09-2014 End: 01-09-2014 MMM MMM [employer] Work Phone: Start: 12-22-2013 End: 12-26-2013 Echocardiography Echocardiogram (complete) [employer] Work Phone: Start: 12-21-2013 End: 12-27-2013 *Hepatic Function Panel *Hepatic Function Panel [employer] Work Phone: Start: 12-21-2013 End: 12-27-2013 Lipid panel [AGGREGATE] *Lipid Profile CC PCP [facility] Work Phone: Start: 08-12-2013 End: 11-07-2013 Thyroid stimulating hormone (TSH) *TSH [facility] Work Phone: Start: 07-01-2013 End: 11-07-2013 PSA *PSA, Annual Screening [facility] [place] Work Phone: Start: 05-09-2013 End: 06-09-2013 Thyroid stimulating hormone (TSH) *TSH [facility] Work Phone: Start: 01-06-2013 End: 01-06-2013 Follow Up Appt 1 year Follow Up Appt 1 year [facility] Work Phone: Start: 01-06-2013 End: 01-06-2013 PFM PFM [facility] Work Phone: Start: 12-22-2012 End: 12-22-2012 Echocardiography Echocardiogram (complete) [facility] Work Phone: Start: 12-14-2012 End: 01-03-2013 Thyroid stimulating hormone (TSH) *TSH [facility] Work Phone: Start: 12-01-2012 End: 12-01-2012 CBC W Auto Differential panel - Blood *CBC without Diff [facility] [place] Work Phone: Start: 12-01-2012 End: 12-01-2012 Thyroid stimulating hormone (TSH) *TSH [facility] Work Phone: Start: 10-25-2012 End: 12-01-2012 Thyroid stimulating hormone (TSH) *TSH [facility] Work Phone: Start: 07-16-2012 End: 01-10-2016 *Hepatic Function Panel *Hepatic Function Panel [facility] Work Phone: Start: 07-16-2012 End: 10-18-2014 Lipid panel [AGGREGATE] *Lipid Profile [facility] Work Phone: Start: 12-22-2011 End: 12-22-2011 Ceftriaxone sodium injection Ceftriaxone (Rocephin) per 250mg [facility] Work Phone: Start: 12-22-2011 End: 12-01-2012 Thyroid stimulating hormone (TSH) *TSH [facility] Work Phone: Start: 07-11-2011 End: 07-17-2011 *CBC with Differential *CBC with Differential [facility] Work Phone: Start: 07-11-2011 End: 07-17-2011 *Hepatic Function Panel *Hepatic Function Panel [facility] Work Phone: Start: 07-11-2011 End: 07-11-2011 Follow Up Appt 6 months Follow Up Appt 6 months [facility] Work Phone: Start: 07-11-2011 End: 07-17-2011 Lipid panel [AGGREGATE] *Lipid Profile [facility] Work Phone: Start: 07-11-2011 End: 07-17-2011 Thyroid stimulating hormone (TSH) *TSH [facility] Work Phone: Start: 07-11-2011 End: 07-17-2011 Thyroxine (T4) *T4 (Total) [facility] Work Phone: Start: 09-30-2010 End: 10-07-2010 Blood count manual cell count each *CBC with Differential [facility] Work Phone: Start: 09-30-2010 End: 10-07-2010 Comprehensive metabolic panel *CMP Complete Metabolic Panel [facility] Work Phone: Start: 09-30-2010 End: 09-30-2010 Follow Up as scheduled Follow Up as scheduled [facility] Work Phone: Start: 09-30-2010 End: 10-07-2010 Lipid panel *Lipid Profile [facility] Work Phone: Start: 09-30-2010 End: 10-07-2010 Thyroid stimulating hormone (TSH) *TSH [facility] Work Phone: Start: 07-18-2010 End: 10-07-2010 Blood count manual cell count each *CBC with Differential [facility] Work Phone: Patient Education [facility] Work Phone: Payers Date Payer Category Payer Unknown [id number] Summary Purpose Family History No Family History Records FoundNo Family History Records FoundNo Family History Records FoundNo Family History Records Found Advance Directives No Advanced Directives Records FoundNo Advanced Directives Records FoundNo Advanced Directives Records FoundNo Advanced Directives Records Found Procedure Findings Note HNO ID: [id number] Author: Chip Higgins Service: Vascular Surgery Author Type: Physician Type: Brief Op Note Filed: 05/13/2018 1:50 PM Note Text: VASCULAR SURGERY POST PROCEDURE NOTE DATE: 05/13/18 NAME: Dakota White LOG ID: [id number] Pre-Procedure Diagnosis: recovered renal function Post Procedure Diagnosis: Same. Archives Specialist: Dr. Maritza Higgins (Primary) Procedure: R IJ [...] DATE CREATED AUTHOR AUTHOR'S ORGANIZ ATION 09/16/2017 [facility] DATE CREATED AUTHOR AUTHOR'S ORGANIZ ATION 03/14/2018 [facility] DATE CREATED AUTHOR AUTHOR'S ORGANIZ ATION 05/13/2018 [facility] FOR RECORDS PERTAINING TO PATIENTS WHO ARE [...] BE BASED ON THE PRIMARY CLINICAL RECORDS. [facility] [employer] provides no warranty or guarantee of the accuracy or completeness of information in this document.
[2023-04-21] MEDS: Ferric Carboxymaltose (Injectafer) 750 MG in 0.9% NaCl 250 ML 795 MG IV (15:07)
[2023-04-21] MEDS: 0.9% NaCl IVPB Med Flush (250 mL) 15 ML IV (15:08)
[2023-04-21] MEDS: 0.9% NaCl Peripheral Flush Adult/Peds IV (15:08)
[2023-04-21 15:40] VITALS: BP 118/64; PULSE 88; TEMP 36.1
== END 2023-04-21 14:22 | disposition home or self-care (01) ==
LOC: MEDOUTP 14:21
PROVIDERS: PCP Family Medicine; Referring Provider Family Medicine; Visit Provider Family Medicine
DX: N18.32 Chronic kidney disease, stage 3b (principal); D50.9 Iron deficiency anemia, unspecified
CPT/HCPCS: 96365; J1439; J7050; A4216

== ENCOUNTER 2023-04-24 10:47 | Emergency (ER) | payer MEDICARE, OTHER, SELFPAY ==
[2023-04-24] VITALS (7 sets, daily range): BP systolic 126–135; BP diastolic 79–87; PULSE 61–84; RESP 14–22; TEMP 36.6; O2SAT 81–97; BMI 27.1
--- NOTE | 2023-04-24 11:58 | RAD_ITS ---
STUDY: X-RAY CHEST REASON FOR EXAM: Male, 68 years old. Cough. Shortness of breath and weakness. TECHNIQUE: PA and lateral views of the chest. COMPARISON: Comparison is made with prior study dated September 29, 2023. FINDINGS: EKG electrodes are seen. Hyperinflation. Bibasilar patchy infiltrates are worse on the right side with blunting of both costophrenic angles. Sternal cerclage wires and vascular clips are present from a prior sternotomy and coronary artery bypass graft procedure (CABG). Cardiomegaly. Normal mediastinum and soren. Normal visualized pulmonary arteries. There is atherosclerotic tortuosity of the aortic arch and descending thoracic aorta. There are diffuse degenerative changes of the visualized thoracic spine. Normal visualized ribs, clavicles, and shoulders. There is no demonstrated abnormality of the visualized soft tissue structures of the upper abdomen. RAD/Chest PA and Lateral IMPRESSION: Bibasilar infiltrates with small bilateral pleural effusions. Electronically Signed: Yosvany Carlos MD at 12:15 EST ,
--- NOTE | 2023-04-24 11:58 | EX.ED.DYSGE1 ---
HPI <FAYE Chen - Last Filed: 04/24/23 14:41> History of Present Illness Chief Complaint: Shortness of Breath Narrative Narrative: Patient is a 68-year-old male with history of renal disease, history of valve replacements, CVA on Eliquis, Elmer-en-Y 20 years ago, history of fluid overload who presents to the emergency department for worsening shortness of breath worse with laying down. Patient was admitted to the hospital in early March, patient had elevated creatinine, as well as right-sided pneumonia. Patient was discharged and on a what appears to be a tapered dose of Lasix. Patient's last Lasix dose was 8 days ago. Patient states since then he is gained over 10 pounds, he feels short of breath, he feels he is holding fluid in his lower abdomen and thighs. Patient denies any chest pain. Patient was recently put on oxygen for the last 3 weeks, states now for the last 3 days has been wearing it nonstop at around 3 L. Patient is here for evaluation. Denies any fever or chills. 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 Atrial fibrillation Atrioventricular block, type I Bruit of left carotid artery Cardiology follow-up encounter Carpal tunnel syndrome CKD (chronic kidney disease) stage 3, GFR 30-59 ml/min Edema of left lower extremity High cholesterol History of echocardiogram History of GI bleed History of stroke History of ulceration HTN (hypertension) Hyperlipidemia Hyperthyroidism Hypothyroidism ICD (implantable cardioverter-defibrillator) in place Kidney disease Kidney failure 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 ligation 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 Mild atherosclerosis of both carotid arteries Mitral valve insufficiency and aortic valve insufficiency Nonrheumatic tricuspid valve regurgitation Open wound Pacemaker PAF (paroxysmal atrial fibrillation) Premature ventricular contraction Presence of biventricular cardiac pacemaker Presence of permanent cardiac pacemaker (~01/19/18) Retinal embolus Sick sinus syndrome Sinus bradycardia Smoker SOB (shortness of breath) Stroke Thyroid disease TIA (transient ischemic attack) Tobacco abuse Ulcer Ventricular hypertrophy Vitamin deficiency Wears dentures Home Medications cyanocobalamin (vitamin B-12) 500 mcg tablet 500 mcg PO QDAY SUPPLEMENT 03/27/17 [History Last Taken 03/31/23] acetaminophen 500 mg tablet 1,000 mg PO Q4H PRN Pain 10/27/17 [History Last Taken 03/30/23] pantoprazole 20 mg tablet,delayed release 40 mg PO BID reflux 03/15/18 [History Last Taken 03/31/23] cholecalciferol (vitamin D3) 50 mcg (2,000 unit) tablet 2,000 unit PO DAILY vitamin 05/21/18 [History Last Taken 03/31/23] carvedilol 25 mg tablet 25 mg PO BID blood pressure #180 tabs 05/15/22 [Rx Last Taken 03/31/23] dapagliflozin propanediol 10 mg tablet (Farxiga) 10 mg PO DAILY diabetes 11/25/22 [History Last Taken 03/31/23] atorvastatin 20 mg tablet 20 mg PO DAILY cholesterol #90 tabs 02/06/23 [Rx Last Taken 03/30/23] amlodipine 5 mg tablet 5 mg PO DAILY blood pressure #90 tabs 02/23/23 [Rx Last Taken 03/31/23] apixaban 5 mg tablet (Eliquis) 5 mg PO BID blood thinner #180 tabs 03/10/23 [Rx Last Taken 03/31/23] levothyroxine 150 mcg tablet 150 mcg PO DAILY thyroid 03/31/23 [History Last Taken 03/31/23] furosemide 40 mg tablet 40 mg PO DAILY 04/14/23 [History Last Taken Unknown] furosemide 40 mg tablet 40 mg PO DAILY #10 tabs 04/24/23 [Rx Last Taken Unknown] Allergy/AdvReac Type Severity Reaction Status Date / Time Penicillins AdvReac Severe Hives Verified 04/14/23 14:29 sulfamethoxazole AdvReac Intermediate Other Verified 04/14/23 14:29 [From Bactrim] trimethoprim [From Bactrim] AdvReac Intermediate Other Verified 04/14/23 14:29 Family History Father CAD (coronary artery disease) Mother CAD (coronary artery disease) Thyroid disorder Sister Thyroid cancer Grandmother Diabetes Grandfather Alcoholism Surgical History History of aortic valve replacement with bioprosthetic valve (~01/19/18) History of cardiac catheterization History of carpal tunnel surgery History of gastric bypass History of heart surgery (~2018) History of knee surgery History of tricuspid valve repair (~01/19/18) S/P aortic valve replacement Social History (Updated 03/31/23 @ 16:[address] Noemí Vela MD) Smoking Status: Light Smoker (<10/day) alcohol intake: current alcohol intake frequency: holidays/special occasions only substance use type: does not use caffeine: Yes Type: coffee what type of physical activity do you participate in: none seatbelt use: always do you feel safe at home: Yes ROS <FAYE Chen - Last Filed: 04/24/23 14:41> ROS ED ROS Narrative Constitutional: Negative for fever, chills, weight loss. Positive for weakness Eyes: Negative for vision loss, vision change, double vision ENT: Negative for any sore throat, ear pain, congestion Cardiovascular: Negative for any chest pain, tightness, palpitations Respiratory: Negative for any cough, sputum production, hemoptysis. Positive for dyspnea, dyspnea on exertion, orthopnea Gastrointestinal: Negative for any abdominal pain, nausea, vomiting, diarrhea, constipation, blood in stool, blood in vomit : Negative for any urinary frequency, dysuria, retention, blood in urine Muscle skeletal: Negative for any myalgias, arthralgias, neck pain, back pain Neurological: Negative for any headache, syncope, paresthesias, dizziness Skin: Negative for any rashes, lumps, itching, abrasions, lacerations Psychiatric: Negative for any depression, anxiety, stress, suicidal ideation, homicidal ideation Hematologic: Negative for any easy bruising, excessive bruising, easy bleeding Allergies: Negative for any eczema, hives, rash EXAM <FAYE Chen - Last Filed: 04/24/23 14:41> Physical Exam Narrative Exam Narrative: Vital signs reviewed. Patient alert and orient x 4. Patient vital signs are stable, patient is 92 to 94% on 3 L nasal cannula. HEET: Head normocephalic atraumatic, TMs clear bilaterally. Posterior pharynx is clear, dry mucous membranes. Nares clear bilaterally. Neck: Supple with no lymphadenopathy or tenderness. No signs of meningismus. Cardiac: Regular rate and rhythm no murmurs gallops or rubs, equal peripheral pulses bilaterally. Respiratory: Patient did have some crackles to lower lung base, right lower lung base was worse.. No chest tenderness. Abdomen: Soft, nontender, nondistended. No abdominal bruit or pulsatile masses. No hepatosplenomegaly Extremities: No peripheral edema, there is no appreciated pitting edema. No signs of gross trauma or deformity. Active full range of motion of all extremities. Neuro: Cranial nerves II through XII intact, no focal neurological deficits. Skin: Clean dry and intact with no rash, purpura, petechiae, vesicles or pustules. Backs/flank: No CVA tenderness, no midline spinal tenderness, no deformity. Psych: Normal mood and affect. No SI, HI or acute psychosis. Const Vital Signs: 04/24/23 10:48 04/24/23 11:08 04/24/23 11:12 Temperature 97.8 F Temperature Source Temporal Pulse Rate 84 65 Respiratory Rate 22 H 14 Respiratory Effort Normal Non-Labored Respiratory Pattern Blood Pressure 135/87 H 131/79 H Blood Pressure Mean 103 96 Pulse Ox 81 97 Oxygen Delivery Method Nasal Cannula Nasal Cannula Oxygen Flow Rate (L/min) 3 3 04/24/23 12:14 04/24/23 12:55 Temperature 97.8 F Temperature Source Temporal Pulse Rate 65 61 Respiratory Rate 16 20 H Respiratory Effort Respiratory Pattern Normal Blood Pressure 126/82 H Blood Pressure Mean 96 Pulse Ox 90 Oxygen Delivery Method Nasal Cannula Oxygen Flow Rate (L/min) 3 <Dr. Ramos Andrews MD - Last Filed: 04/24/23 12:31> Physical Exam Const Vital Signs: 04/24/23 10:48 04/24/23 11:08 04/24/23 11:12 Temperature 97.8 F Temperature Source Temporal Pulse Rate 84 65 Respiratory Rate 22 H 14 Respiratory Effort Normal Non-Labored Respiratory Pattern Blood Pressure 135/87 H 131/79 H Blood Pressure Mean 103 96 Pulse Ox 81 97 Oxygen Delivery Method Nasal Cannula Nasal Cannula Oxygen Flow Rate (L/min) 3 3 04/24/23 12:14 04/24/23 12:55 Temperature 97.8 F Temperature Source Temporal Pulse Rate 65 61 Respiratory Rate 16 20 H Respiratory Effort Respiratory Pattern Normal Blood Pressure 126/82 H Blood Pressure Mean 96 Pulse Ox 90 Oxygen Delivery Method Nasal Cannula Oxygen Flow Rate (L/min) 3 [facility] <Ambroico CulverFAYE lebron - Last Filed: 04/24/23 14:41> [facility] Lab Data Labs: Laboratory Results - last 24 hr 04/24/23 11:15 WBC 4.5 RBC 2.82 L Hgb 9.1 L Hct 31.9 L MCV 113.1 H MCH 32.3 H MCHC 28.5 L RDW Std Deviation 76.9 H RDW Coeff of Hugo 18.5 H Plt Count 155 MPV 9.9 Immature Gran % (Auto) 1.100 H Neut % (Auto) 71.6 H Lymph % (Auto) 17.2 L [place] % (Auto) 7.2 Eos % (Auto) 1.8 Baso % (Auto) 1.1 H Absolute Neuts (auto) 3.2 Absolute Lymphs (auto) 0.77 L Nucleated RBC % 0.7 Anisocytosis 1+ PT 16.9 H INR 1.4 Sodium 137 Potassium 5.5 H Chloride 114 H Carbon Dioxide 25.0 Anion Gap -2 L BUN 45 H Creatinine 2.18 H Estim Creat Clear Calc 40.37 Est GFR (MDRD) Af Amer 39 L Est GFR (MDRD) Non-Af 32 L BUN/Creatinine Ratio 20.6 H Glucose 87 Calcium 8.5 Troponin I High Sens 16 B-Natriuretic Peptide 285.9 H Radiography Diagnostic Testing: Clinical Impression(s) from Imaging Studies Chest X-Ray 04/24/23 11:58 IMPRESSION: Bibasilar infiltrates with small bilateral pleural effusions. Electronically Signed: Yosvany Carlos MD at 12:15 EST , EKG Paced rhythm: Attestation: I personally reviewed and interpreted this EKG as follows: Comments: Patient is a paced rhythm with a controlled rate. On the monitor in the room it is 70. No acute elevation, no acute infarct noted. Treatment and Re-Evaluation :: Patient appears to be in no obvious distress, patient on his 3 L nasal cannula is 92 to 94%, vital signs are stable. Patient presenting to the emergency department for worsening shortness of breath especially when laying down. Differential diagnosis includes pneumonia, CHF exacerbation, fluid overload, renal disease, ascites. Patient received a full cardiac workup including 2 view chest x-ray, proBNP. Patient will be given breathing treatments. He does have history of COPD. Patient be reevaluated. All radiologic examinations were read, reviewed by the emergency department attending. From these reads, a plan of care will be put in place. The patient's chest x-ray showed bilateral pleural effusions. Patient's CBC shows a hemoglobin of 9.1, this appears to be baseline throughout the month of March, patient's PT 16.9 with INR 1.4. Patient's chemistries show an slightly elevated potassium of 5.5, this appears to be baseline. Patient's creatinine is 2.18, this is again baseline. Patient's proBNP was elevated at 285, this is down from 459 earlier in the month. Patient was ambulated, patient was slightly hypoxic between 88 and 92. However patient does have oxygen at home and he wears the oxygen at all times. At this time, I do not believe the patient needs admission however patient will be discharged home on Lasix for 10 days. Secondary to the patient needing close follow-up I will reach out to his PCP prior to discharge. I spoke with the patient, he states he feels generally well and thinks the plan is good. He will follow up outpatient. <Dr. Ramos Andrews MD - Last Filed: 04/24/23 12:31> [facility] Narrative Medical decision making narrative: I have personally performed a face to face assessment of the patient and have reviewed the VAHID Note. I performed a substantive portion of the visit including all aspects of the following. My hernandez findings include: History is [68-year-old male recently hospitalized due to peripheral edema due to chronic kidney disease. He was on Lasix improved over the fluid has put on about 15 pounds of water weight over the last several days and is currently out of his Lasix. He denies any fever or chills. Is more short of breath supine.] Exam is [ well-appearing 68-year-old male. Vital signs are stable. On 3 L 7%. Look septic or talk to them. No distress. H Patient EENT exam unremarkable. Lungs diminished in both bases but no rales rhonchi or wheezing. Heart regular rhythm rate about 70 no murmur. Chest wall nontender. Abdomen soft nontender. Moving all 4 extremities. Calves are nontender without cords. Motor strength. 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 He is awake and alert. He answers questions and commands.] Medical Decision Making [ 68-year-old with pleural effusions and water retention due to acute on chronic renal insufficiency. Most likely he will need to be restarted on his Lasix. Most likely exam. Discharged home. ] Other additions or changes: [None] History & Record Review Discussion w/independent historian: Patient Additional record(s) reviewed:: Prior inpatient record, Prior outpatient record, Prior ED visit and Prior labs Lab Data Attestation: I reviewed the patient's lab results. Labs: Laboratory Results - last 24 hr 04/24/23 11:15 WBC 4.5 RBC 2.82 L Hgb 9.1 L Hct 31.9 L MCV 113.1 H MCH 32.3 H MCHC 28.5 L RDW Std Deviation 76.9 H RDW Coeff of Hugo 18.5 H Plt Count 155 MPV 9.9 Immature Gran % (Auto) 1.100 H Neut % (Auto) 71.6 H Lymph % (Auto) 17.2 L [place] % (Auto) 7.2 Eos % (Auto) 1.8 Baso % (Auto) 1.1 H Absolute Neuts (auto) 3.2 Absolute Lymphs (auto) 0.77 L Nucleated RBC % 0.7 Anisocytosis 1+ PT 16.9 H INR 1.4 Sodium 137 Potassium 5.5 H Chloride 114 H Carbon Dioxide 25.0 Anion Gap -2 L BUN 45 H Creatinine 2.18 H Estim Creat Clear Calc 40.37 Est GFR (MDRD) Af Amer 39 L Est GFR (MDRD) Non-Af 32 L BUN/Creatinine Ratio 20.6 H Glucose 87 Calcium 8.5 Troponin I High Sens 16 B-Natriuretic Peptide 285.9 H Radiography Diagnostic Testing: Clinical Impression(s) from Imaging Studies Chest X-Ray 04/24/23 11:58 IMPRESSION: Bibasilar infiltrates with small bilateral pleural effusions. Electronically Signed: Yosvany Carlos MD at 12:15 EST , Discharge Plan Triage Chief Complaint: Shortness of Breath ED Midlevel Provider: Ambrocio Earl ED Provider: Ramos Andrews Dx/Rx/DC Orders Clinical Impression: Orthopnea, CHF (congestive heart failure), Chronic kidney disease, Fluid overload Instructions: CKD Dc, ED Heart Failure, Congestive (CHF), ED Dyspnea Prescriptions: New furosemide 40 mg tablet 40 mg PO DAILY Qty: 10 0RF No Action cholecalciferol (vitamin D3) 2,000 unit tablet 2,000 unit tablet 2,000 unit PO DAILY pantoprazole 20 mg tablet,delayed release (DR/EC) 40 mg PO BID dapagliflozin propanediol [Farxiga] 10 mg tablet 10 mg PO DAILY acetaminophen 500 MG tablet 1,000 mg PO Q4H PRN (Reason: Pain) levothyroxine 150 mcg tablet 150 mcg PO DAILY furosemide 40 mg tablet 40 mg PO DAILY Hold Instructions: per patient cyanocobalamin (vitamin B-12) 500 mcg tablet 500 mcg PO QDAY carvedilol 25 mg tablet 25 mg PO BID Qty: 180 4RF atorvastatin 20 mg tablet 20 mg PO DAILY Qty: 90 3RF amlodipine 5 mg tablet 5 mg PO DAILY Qty: 90 3RF Eliquis 5 mg tablet 5 mg PO BID Qty: 180 4RF Primary Care Provider: Tapan Cuellar Referrals: Tapan Cuellar DO [Primary Care Provider] - Activity Restrictions/Additional Instructions: Ensure that you follow-up with your PCP. Disposition Disposition: Home, Self Care
[2023-04-24 12:07] LABS: Absolute Lymphocyte Count 0.77 X10^3/uL (0.83-4.51); Absolute Neutrophil Count 3.2 X10^3/uL (2.0-7.7); Basophil# 0.05 X10^3/uL; Basophil% 1.1 % (0-1); Eosinophil# 0.08 X10^3/uL; Eosinophils% 1.8 % (0-5); Hematocrit 31.9 % (40-54); Hemoglobin 9.1 g/dL (13.0-16.5); International Normalized Ratio 1.4; Lymphocyte # 0.77 X10^3/ul (0.83-4.51); Lymphocyte % 17.2 % (19-41); Mean Corp Hgb Conc 28.5 g/dL (32-36); Mean Corpuscular Hgb 32.3 pg (27.0-32.0); Mean Corpuscular Volume 113.1 fL (80-94); Mean Platelet Vol. 9.9 fl (6.2-12.0); Monocyte# 0.32 X10^3/uL; Monocyte% 7.2 % (0-10); NRBC Flagged by Analyzer 0.7 % (0-5); Neutrophil % 71.6 % (47-70); POSITIVE MORPHOLOGY YES; Platelet Count 155 K/mm3 (150-450); Prothrombin Time (Protime)PT. 16.9 SECONDS (11.7-14.9); RBC Distribution Width CV 18.5 % (11.6-14.6); RBC Distribution Width SD 76.9 fl (35.1-43.9); Red Blood Count 2.82 M/mm3 (4.6-6.2); White Blood Count 4.5 K/mm3 (4.4-11.0)
[2023-04-24] MEDS: Albuterol 2.5 MG/3 ML VIAL.NEB. INHALATION (12:09)
[2023-04-24] MEDS: Ipratropium/Albuterol Sulfate 3 ML AMPUL.NEB INHALATION (12:09)
[2023-04-24 12:20] LABS: Anion Gap -2 (5-15); BUN 45 mg/dL (7-18); BUN/Creat Ratio 20.6 RATIO (10-20); Calcium,Total 8.5 mg/dL (8.5-10.1); Chloride 114 mmol/L (98-107); Creatinine, Serum 2.18 mg/dL (0.70-1.30); EST Glomerular Filtration Rate 32 mL/min (>60); Est Glom Filt Rate - Afr Amer 39 mL/min (>60); Estimated Creatinine Clearance 40.37 ml/min; Glucose 87 mg/dL (74-106); Potassium 5.5 mmol/L (3.5-5.1); Sodium Level 137 mmol/L (136-145); Troponin-I HS 16 pg/mL (3.0-78.0)
[2023-04-24 12:33] LABS: Differential Indicated SCAN CRITERIA MET
[2023-04-24] MEDS: Furosemide 40 MG/4 ML Vial IV (12:53)
[2023-04-24 12:57] LABS: BNP,B-Type NATRIURETIC PEPTIDE 285.9 pg/mL (0-100)
[2023-04-24 13:00] LABS: Anisocytosis 1+
== END 2023-04-24 14:53 | disposition home or self-care (01) ==
PROVIDERS: Nurse Practitioner; Emergency Provider Emergency Medicine; PCP Family Medicine; Visit Provider Emergency Medicine
DX: R06.01 Orthopnea (principal); I13.0 Hypertensive heart and chronic kidney disease with heart failure and stage 1 through stage 4 chronic kidney disease, or unspecified chronic kidney disease; I50.9 Heart failure, unspecified; I48.0 Paroxysmal atrial fibrillation; N18.30 Chronic kidney disease, stage 3 unspecified; F17.200 Nicotine dependence, unspecified, uncomplicated; Z79.01 Long term (current) use of 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s; Z86.73 Personal history of transient ischemic attack (TIA), and cerebral infarction without residual deficits; Z95.2 Presence of prosthetic heart valve; I25.10 Atherosclerotic heart disease of native coronary artery without angina pectoris; E78.00 Pure hypercholesterolemia, unspecified; E03.9 Hypothyroidism, unspecified; Z79.890 Hormone replacement therapy; Z79.899 Other long term (current) drug therapy; E87.70 Fluid overload, unspecified
CPT/HCPCS: 71046; 80048; 83880; 84484; 85025; 85610; 93005; 94640; 96374; 99284; A4216; J1940

== ENCOUNTER → 2023-05-06 | Outpatient (CLI) | payer MEDICARE, OTHER, SELFPAY ==
[2023-05-06 12:29] LABS: Absolute Lymphocyte Count 0.84 X10^3/uL (0.83-4.51); Absolute Neutrophil Count 2.4 X10^3/uL (2.0-7.7); Basophil# 0.04 X10^3/uL; Basophil% 1.1 % (0-1); Eosinophil# 0.06 X10^3/uL; Eosinophils% 1.6 % (0-5); Hematocrit 32.8 % (40-54); Hemoglobin 9.5 g/dL (13.0-16.5); Lymphocyte # 0.84 X10^3/ul (0.83-4.51); Lymphocyte % 22.8 % (19-41); Mean Corpuscular Hgb 33.8 pg (27.0-32.0); Mean Corpuscular Volume 116.7 fL (80-94); Mean Platelet Vol. 9.8 fl (6.2-12.0); Monocyte# 0.34 X10^3/uL; Monocyte% 9.2 % (0-10); NRBC Flagged by Analyzer 0 % (0-5); Neutrophil # 2.36 X10^3/uL (2.7-7.7); Neutrophil % 64.2 % (47-70); POSITIVE MORPHOLOGY YES; Platelet Count 126 K/mm3 (150-450); RBC Distribution Width CV 19.1 % (11.6-14.6); RBC Distribution Width SD 83.2 fl (35.1-43.9); Red Blood Count 2.81 M/mm3 (4.6-6.2); White Blood Count 3.7 K/mm3 (4.4-11.0)
[2023-05-06 12:46] LABS: Differential Indicated SCAN CRITERIA MET
[2023-05-06 13:05] LABS: ALB/GLOB Ratio 0.7 RATIO (0.9-2.4); AST(SGOT) 27 U/L (15-37); Alanine Aminotransfer ALT/SGPT 31 U/L (16-61); Albumin, Serum 3.1 g/dL (3.2-5.0); Alkaline Phosphatase 157 U/L (45-117); Anion Gap 6 (5-15); BUN 60 mg/dL (7-18); BUN/Creat Ratio 23.9 RATIO (10-20); Calcium,Total 8.3 mg/dL (8.5-10.1); Chloride 117 mmol/L (98-107); Creatinine, Serum 2.51 mg/dL (0.70-1.30); EST Glomerular Filtration Rate 27 mL/min (>60); Est Glom Filt Rate - Afr Amer 33 mL/min (>60); Ferritin 182 ng/mL (26-388); Globulin 4.3 g/dL (2.2-4.2); Glucose 87 mg/dL (74-106); Potassium 4.9 mmol/L (3.5-5.1); Protein, Total 7.4 g/dL (6.4-8.2); Sodium Level 144 mmol/L (136-145)
[2023-05-06 13:19] LABS: Anisocytosis 1+
== END | disposition home or self-care (01) ==
LOC: BFHLAB 09:05
PROVIDERS: PCP Family Medicine; Visit Provider Family Medicine
DX: R06.02 Shortness of breath (principal); N18.32 Chronic kidney disease, stage 3b; D63.1 Anemia in chronic kidney disease; R09.02 Hypoxemia
CPT/HCPCS: 36415; 80053; 82728; 83880; 85025

== ENCOUNTER → 2023-05-22 | Outpatient (CLI) | payer MEDICARE, OTHER, SELFPAY ==
[2023-05-22 12:21] LABS: Hemoglobin 9.4 g/dL (13.0-16.5); Mean Corp Hgb Conc 28.5 g/dL (32-36); Mean Corpuscular Volume 115.8 fL (80-94); Mean Platelet Vol. 10.1 fl (6.2-12.0); POSITIVE MORPHOLOGY YES; Platelet Count 116 K/mm3 (150-450); RBC Distribution Width CV 18.1 % (11.6-14.6); RBC Distribution Width SD 77.9 fl (35.1-43.9); Red Blood Count 2.85 M/mm3 (4.6-6.2); White Blood Count 3.7 K/mm3 (4.4-11.0)
[2023-05-22 12:49] LABS: BUN 58 mg/dL (7-18); BUN/Creat Ratio 23.7 RATIO (10-20); Calcium,Total 8.3 mg/dL (8.5-10.1); Chloride 115 mmol/L (98-107); Creatinine, Serum 2.45 mg/dL (0.70-1.30); EST Glomerular Filtration Rate 28 mL/min (>60); Est Glom Filt Rate - Afr Amer 34 mL/min (>60); Glucose 91 mg/dL (74-106); Phosphorus 3.9 mg/dL (2.5-4.9); Protein, Urine (Random) 28.4 mg/dL (<11.9); Protein:Creat Ratio 986 mg/g CRE (0-200); Scan Indicated on CBC? Y/N YES- FLAGS NOTED; Sodium Level 140 mmol/L (136-145)
[2023-05-22 13:42] LABS: Differential Comment SCANNED
== END | disposition home or self-care (01) ==
LOC: LAB 11:18
PROVIDERS: PCP Family Medicine; Referring Provider Internal Medicine Nephrology; Visit Provider Internal Medicine Nephrology
DX: N18.4 Chronic kidney disease, stage 4 (severe) (principal)
CPT/HCPCS: 36415; 80069; 82570; 84156; 85027

== ENCOUNTER → 2023-06-05 | Outpatient (CLI) | payer MEDICARE, OTHER, SELFPAY ==
--- NOTE | 2023-06-05 11:43 | US_ITS ---
STUDY: ABDOMINAL ULTRASOUND REASON FOR EXAM: Male, 68 years old. Abnormal liver function tests TECHNIQUE: Transabdominal ultrasound was performed with real-time and static wilkinson scale imaging. TECHNICAL QUALITY: Limited. Examination limited by bowel gas. COMPARISON: None. FINDINGS: Liver: The liver measures 17.2 cm. There is a heterogeneous echogenicity of the liver. The bile ducts are within normal limits. There is hepatic color flow. The direction of portal flow is hepatopetal. There is no demonstrated mass lesion. Portal vein measurement: Gallbladder: Distended gallbladder. The gallbladder wall measures 6.1 mm. There is a negative sonographic Kruger''s sign. There is no pericholecystic fluid. There are multiple echogenic structures within the gallbladder, consistent with multiple gallstones along with echogenic sludge. Common Bile Duct (C.B.D.): The common bile duct measures 8.1 mm. Pancreas: There is nonvisualization of the pancreas. Spleen: Normal size of the spleen. The spleen measures 12.1 cm. Granulomatous calcifications noted Right Kidney: Normal size of the right kidney. The right kidney measures 10.5 x 5.1 x 4.4 cm. Normal renal cortex. The right cortex measures 1.1 cm. There is no demonstrated renal mass or cyst. There is mild hydronephrosis of the right kidney. Left Kidney: Normal size of the left kidney. The left kidney measures 10.1 x 5.1 x 4.8 cm. Normal renal cortex. The left cortex measures 1.4 cm. There is no demonstrated renal mass or cyst. There is no left hydronephrosis, there is a nonobstructing 4 mm stone Aorta: Ectatic I.V.C.: The IVC is patent and dilated. There is no ascites. Director Of Sales notes a 3.1 x 4.1 x 3.4 cm solid and cystic mass posterior to the liver US/Abdomen Complete IMPRESSION: Stable hepatomegaly with heterogeneous echotexture in the liver, no discrete lesion Distended gallbladder with gallbladder wall thickening and multiple gallstones. There is biliary dilatation as well. Findings are concerning for cholecystitis, surgical consultation recommended along with correlation with lab and physical findings. Mild hydronephrosis of the right kidney of uncertain etiology Nonobstructing left nephrolithiasis Director Of Sales notes a midline abdominal mass posterior to the left lobe of liver measuring 3.1 x 4.1 x 3.4 cm. It is predominantly solid but has a cystic component, this could be further evaluated with CT or MRI or follow-up ultrasound could be performed to reassess in 3-4 weeks Electronically Signed: Christ Cash MD at 15:33 EDT ,
== END | disposition home or self-care (01) ==
LOC: US 11:42
PROVIDERS: PCP Family Medicine; Referring Provider Internal Medicine Nephrology; Visit Provider Internal Medicine Nephrology
DX: R18.8 Other ascites (principal)
CPT/HCPCS: 76700

== ENCOUNTER → 2023-06-10 | Outpatient (CLI) | payer MEDICARE, OTHER, SELFPAY ==
--- NOTE | 2023-06-10 09:46 | ECHOD_ITS ---
Reason For Study: AVR Eval Procedure This was a 2D Doppler, Color Flow transthoracic echocardiogram. Exam performed in department. Left Ventricle Normal LV size. Left ventricular systolic function is normal. The left ventricular ejection fraction is 60 %. Apical wall motion abnormality may reflect pacemaker activation. [place] : Hypokinetic. Right Ventricle Normal RV size. The right ventricle is normal in size, function, and thickness. Atria The left atrium is moderately enlarged. The right atrium is mildly enlarged. Mitral Valve Mild diffuse mitral valve thickening. Mild (1+) eccentric mitral valve insufficiency. Tricuspid Valve Normal tricuspid valve. Mild to moderate (1-2+) tricuspid valve insufficiency. Pulmonary artery systolic pressure is 50 mmHg. Aortic Valve Mild-Moderate (1-2+) eccentric aortic valve insufficiency. Bioprosthetic aortic valve. Pulmonic Valve Normal pulmonic valve. Great Vessels Normal aortic root. The pulmonary artery is normal size. Inferior vena cava collapse with sniff. Pericardium/Pleural No pericardial effusion. MMode/2D Measurements & Calculations LVIDd: 5.5 cm IVSd: 1.2 cm LVOT diam: 2.2 cm LVIDs: 3.7 cm LVPWd: 1.2 cm LVOT area: 3.9 cm2 RVDd: 5.3 cm FS: 32.3 % Ao root diam: 3.7 cm LAV(MOD-bp): 133.4 ml LVAd ap4: 34.3 cm2 LAV(MOD-bp) Indexed: 58.7 ml/m2 LVLd ap4: 8.6 cm LAV(MOD-sp2): 118.0 ml EDV(MOD-sp4): 115.8 ml LAV(MOD-sp4): 125.4 ml EDV(sp4-el): 116.7 ml LVAs ap4: 19.9 cm2 LVLs ap4: 7.6 cm ESV(MOD-sp4): 44.1 ml ESV(sp4-el): 44.3 ml EF(MOD-sp4): 61.9 % EF(sp4-el): 62.1 % SV(MOD-sp4): 71.7 ml SV(sp4-el): 72.4 ml LA A4 area: 34.6 cm2 LA dimension(2D): 5.4 cm RA A4 area: 23.2 cm2 TAPSE: 1.9 cm Time Measurements MV dec time: 0.25 sec Doppler Measurements & Calculations MV E max abdifatah: 153.7 cm/sec Lat Peak E' Abdifatah: 5.9 cm/sec Med Peak E' Abdifatah: 5.1 cm/sec MV A max abdifatah: 31.4 cm/sec E/E' lat: 26.3 E/E' med: 30.2 MV E/A: 4.9 MV V2 max: 174.7 cm/sec Ao V2 max: 227.6 cm/sec MV max P.3 mmHg MV dec slope: 604.7 cm/sec2 Ao max P.7 mmHg MV V2 mean: 76.8 cm/sec Ao V2 mean: 153.9 cm/sec MV mean P.3 mmHg Ao mean P.9 mmHg MV V2 VTI: 45.5 cm Ao V2 VTI: 44.9 cm AV (velocity ratio): 0.64 MVA(VTI): 2.5 cm2 JANEL(I,D): 2.5 cm2 JANEL(V,D): 2.2 cm2 AI max abdifatah: 461.1 cm/sec LV V1 max: 130.0 cm/sec SV(LVOT): 112.7 ml AI max P.1 mmHg LV V1 max P.8 mmHg LV V1 mean P.8 mmHg AI dec slope: 193.7 cm/sec2 LV V1 mean: 90.5 cm/sec AI P1/2t: 697.4 msec LV V1 VTI: 28.9 cm PA V2 max: 87.9 cm/sec TR max abdifatah: 345.1 cm/sec TR max P.6 mmHg ECHO/Echo Complete Interpretation Summary Normal LV size. The left ventricular ejection fraction is 60 %. Left ventricular systolic function is normal. Mild-Moderate (1-2+) eccentric aortic valve insufficiency. Bioprosthetic aortic valve. Mild (1+) eccentric mitral valve insufficiency. Ordering Physician: Nguyen Montemayor Referring Physician: Tapan Cuellar Performed By: Roof, Mariela, RDCS, RVT
== END | disposition home or self-care (01) ==
PROVIDERS: PCP Family Medicine; Referring Provider Nurse Practitioner Gerontology; Visit Provider Nurse Practitioner Gerontology
DX: I36.1 Nonrheumatic tricuspid (valve) insufficiency (principal); I48.0 Paroxysmal atrial fibrillation; I10 Essential (primary) hypertension; Z95.3 Presence of xenogenic heart valve
CPT/HCPCS: 93306

== ENCOUNTER → 2023-06-17 | Outpatient (CLI) | payer MEDICARE, OTHER, SELFPAY ==
--- NOTE | 2023-06-17 09:50 | RAD_ITS ---
STUDY: X-RAY CHEST REASON FOR EXAM: Male, 68 years old. Dyspnea on exertion. TECHNIQUE: Frontal and lateral views of the chest. COMPARISON: 04/24/2023 FINDINGS: Hyperinflation with decreased parenchymal interstitial opacities in both bases. Minimal residual interstitial opacity remaining, which may represent scarring. Stable blunting of the right costophrenic angle. Cardiomegaly, sternotomy wires and pacing wires, left 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 closure device with changes of coronary artery bypass grafting, unaltered. Normal mediastinum and soren. Stable prominent central pulmonary arteries. Aortic tortuosity and calcification unchanged. Thoracic osteopenia with diffuse spondylosis and slight increased kyphosis, unchanged. Normal visualized ribs, clavicles, and shoulders. No abnormality of the visualized soft tissue structures of the upper abdomen. RAD/Chest PA and Lateral IMPRESSION: Slight decrease in parenchymal opacities at both bases with residual scarring at the right base. No other change and no acute finding. Electronically Signed: Scar Sales MD at 10:59 EDT ,
--- NOTE | 2023-06-17 15:15 | CT_ITS ---
STUDY: CT ABDOMEN AND PELVIS WITHOUT CONTRAST REASON FOR EXAM: Male, 68 years old. CKD, STAGE 4, *ORAL CONTRAST* RADIATION DOSAGE (If Supplied By Facility): CTDIvol = ( 9.51 ) mGy, DLP = ( 796.89 ) mGycm TECHNIQUE: Transaxial images were obtained from the dome of the diaphragm to the symphysis pubis without oral contrast, and without intravenous contrast. Sagittal and coronal images were reconstructed. Limited study due to lack of intravenous contrast. Individualized dose optimization techniques were used for this CT. COMPARISON: Comparison is made with prior sonogram of the abdomen dated June 05, 2023. FINDINGS: Mild scarring at the lung bases. Coronary artery calcification. Cardiomegaly. Hepatomegaly. There are small gallstones. Normal spleen. Metallic embolic material is seen in the region of the splenic hilum. There is diffuse atrophy of the pancreas. There is a 3.5 cm x 2.5 cm rounded solid hypodense nodule in the sabrina hepatis. This may represent adenopathy. Normal bilateral adrenal glands. Punctate calculus in the upper pole calyx of the right kidney. Punctate calculus in the lower pole of the left kidney. Multiple metallic sutures are seen in the region of the stomach. Normal small intestine. Normal colon. The appendix is visualized and appears normal. There is diffuse atherosclerotic calcification of the abdominal aorta, without a demonstrated aneurysm. There is evidence of a left-sided inferior vena cava in the lower abdomen. This crosses to the right side of the midline and normal position at the level of the hepatic entrance. Normal retroperitoneum. Normal urinary bladder. Normal abdominal wall. There are diffuse degenerative changes of the visualized lumbar spine. CT/Abdomen/Pel W ORAL Cont Only IMPRESSION: Findings suggestive of a 3.5 cm x 2.5 cm lymph node in the sabrina hepatis. Electronically Signed: Yosvany Carlos MD at 15:37 EDT ,
== END | disposition home or self-care (01) ==
PROVIDERS: PCP Family Medicine; Referring Provider Nurse Practitioner Gerontology; Visit Provider Internal Medicine Nephrology
DX: N18.4 Chronic kidney disease, stage 4 (severe) (principal); R06.09 Other forms of dyspnea
CPT/HCPCS: 71046; 74176

== ENCOUNTER → 2023-07-03 | Outpatient (CLI) | payer MEDICARE, OTHER, SELFPAY | END | disposition home or self-care (01) | LOC: LABSPEC 10:31 | PROVIDERS: PCP Family Medicine; Referring Provider Physician Assistant Surgical; Visit Provider Physician Assistant Surgical | DX: Z87.39 Personal history of other diseases of the musculoskeletal system and connective tissue (principal) | CPT/HCPCS: 87070; 87075; 87077; 87186; 87205 ==

== ENCOUNTER → 2023-08-19 | Outpatient (CLI) | payer MEDICARE, OTHER, SELFPAY ==
[2023-08-19 11:39] LABS: Hematocrit 36.3 % (40-54); Hemoglobin 10.7 g/dL (13.0-16.5); Mean Corp Hgb Conc 29.5 g/dL (32-36); Mean Corpuscular Hgb 31.1 pg (27.0-32.0); Mean Corpuscular Volume 105.5 fL (80-94); Mean Platelet Vol. 10.1 fl (6.2-12.0); Platelet Count 130 K/mm3 (150-450); RBC Distribution Width SD 61.1 fl (35.1-43.9); Red Blood Count 3.44 M/mm3 (4.6-6.2); White Blood Count 4.6 K/mm3 (4.4-11.0)
[2023-08-19 11:48] LABS: Protein, Urine (Random) 33.7 mg/dL (<11.9); Protein:Creat Ratio 581 mg/g CRE (0-200)
[2023-08-19 12:09] LABS: Albumin, Serum 3.1 g/dL (3.2-5.0); BUN 56 mg/dL (7-18); BUN/Creat Ratio 19.8 RATIO (10-20); Calcium,Total 8.6 mg/dL (8.5-10.1); Chloride 111 mmol/L (98-107); Creatinine, Serum 2.83 mg/dL (0.70-1.30); EST Glomerular Filtration Rate 24 mL/min (>60); Est Glom Filt Rate - Afr Amer 29 mL/min (>60); Glucose 78 mg/dL (74-106); Phosphorus 4.9 mg/dL (2.5-4.9); Potassium 4.7 mmol/L (3.5-5.1); Sodium Level 136 mmol/L (136-145)
== END | disposition home or self-care (01) ==
LOC: LAB 10:36
PROVIDERS: PCP Family Medicine; Referring Provider Internal Medicine Nephrology; Visit Provider Internal Medicine Nephrology
DX: N18.4 Chronic kidney disease, stage 4 (severe) (principal)
CPT/HCPCS: 36415; 80069; 82570; 84156; 85027

== ENCOUNTER → 2023-09-28 | Outpatient (CLI) | payer MEDICARE, OTHER, SELFPAY | END | disposition home or self-care (01) | LOC: LABSPEC 14:59 | PROVIDERS: PCP Family Medicine; Referring Provider Physician Assistant; Visit Provider Physician Assistant | DX: L02.91 Cutaneous abscess, unspecified (principal) | CPT/HCPCS: 87070; 87077; 87186; 87205 ==

== ENCOUNTER 2023-12-14 14:25 | Emergency (ER) | payer MEDICARE, OTHER, SELFPAY ==
[2023-12-14 14:27] VITALS: BP 109/65; PULSE 72; RESP 18; TEMP 35.6; O2SAT 98; BMI 24.3
[2023-12-14 15:07] LABS: Mucous, Urine 0 SEEN /hpf (<or=2+)
[2023-12-14 15:14] LABS: Color, Urine Yellow (Yellow); Glucose, Dipstick 100 mg/dl (Normal); Ketone-Dipstick Negative (Negative); Leukocyte Esterase-Dipstick 100 /ul (Negative); Nitrite-Dipstick Negative (Negative); Occult Blood-Urine Negative /ul (Negative); Protein-Dipstick 30 mg/dl (Negative); Urine Bilirubin Dipstick Negative (Negative); Urine Clarity Sl. Cloudy (Clear); Urine Urobilinogen Normal (Normal)
[2023-12-14 15:25] LABS: Bacteria RARE /hpf (None Seen); Red Blood Cells-Urine 0-5 SEEN /hpf (0-5); Squamous Epithelial Cells - UA 0-5 SEEN /hpf (0-5); White Blood Cells 10-25 SEEN /hpf (0-5)
[2023-12-14 18:54] VITALS: PULSE 87; RESP 16; O2SAT 97
--- NOTE | 2023-12-14 19:08 | EDS_ITS ---
HPI History of Present Illness Chief Complaint: Complaint Narrative Narrative: Patient is a 68-year-old male with past medical history of chronic kidney disease, TIA, pacemaker, Bartonella henselae infection previously, atrial fibrillation on Eliquis who presents to the emerged part with a chief complaint of painful urination increased frequency of urinating. Patient states on Thursday his symptoms developed and notes that he went to an urgent care was placed on Macrobid. He states that he is symptoms is not improving and states that he is having difficulty with urinating he states that he feels like he has to go secondary to burning and when he attempts to go he has just very small amounts of urine come out. Patient denies any fevers, back pain [facility] Medical History Infected sebaceous cyst of skin EPO-resistant anemia Hepatomegaly Edema Dyspnea Chronic kidney disease (CKD) stage G3b/A1, moderately decreased glomerular filtration rate (GFR) between 30-44 mL/min/1.73 square meter and albuminuria creatinine ratio less than 30 mg/g CKD (chronic kidney disease) stage 3, GFR 30-59 ml/min Hyperthyroidism ICD (implantable cardioverter-defibrillator) in place Pacemaker TIA (transient ischemic attack) Anemia Abscess of left buttock Wears dentures Open wound Thyroid disease Anemia High cholesterol History of GI bleed History of ulceration Smoker Leg cramps History of echocardiogram Cardiology follow-up encounter Edema of left lower extremity Acute bronchitis, unspecified Stroke Acute stomach ulcer Kidney disease HTN (hypertension) PAF (paroxysmal atrial fibrillation) Mild atherosclerosis of both carotid arteries History of stroke Presence of biventricular cardiac pacemaker Vitamin deficiency Ulcer Kidney failure Carpal tunnel syndrome Nonrheumatic tricuspid valve regurgitation Aortic valve endocarditis (~12/2017) Acute CVA (cerebrovascular accident) (10/27/17) 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 ligation [employer] current use of 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 Atrial fibrillation Sinus bradycardia Presence of permanent cardiac pacemaker (~01/19/18) Mitral valve insufficiency and aortic valve insufficiency Sick sinus syndrome SOB (shortness of breath) Anemia, iron deficiency Hypothyroidism Tobacco abuse Aortic stenosis Atherosclerotic heart disease of [place] coronary artery without angina pectoris Atrioventricular block, type I Premature ventricular contraction Abnormal EKG Hyperlipidemia Ventricular hypertrophy Bruit of left carotid artery Retinal embolus Home Medications ?Medication ?Instructions ?Recorded ?Last Taken ?Type cyanocobalamin (vitamin B-12) 500 500 mcg PO QDAY SUPPLEMENT 03/27/17 03/31/23 History mcg tablet acetaminophen 500 mg tablet 1,000 mg PO Q4H PRN Pain 10/27/17 03/30/23 History pantoprazole 20 mg tablet,delayed 40 mg PO BID reflux 03/15/18 03/31/23 History release dapagliflozin propanediol 10 mg 10 mg PO DAILY diabetes 11/25/22 03/31/23 History tablet (Farxiga) atorvastatin 20 mg tablet 20 mg PO DAILY cholesterol #90 tabs 02/06/23 03/30/23 Rx amlodipine 5 mg tablet 5 mg PO DAILY blood pressure #90 02/23/23 03/31/23 Rx tabs apixaban 5 mg tablet (Eliquis) 5 mg PO BID blood thinner #180 tabs 03/10/23 03/31/23 Rx levothyroxine 150 mcg tablet 150 mcg PO DAILY thyroid 03/31/23 03/31/23 History furosemide 40 mg tablet 40 mg PO DAILY 04/14/23 Unknown History furosemide 40 mg tablet 40 mg PO DAILY PRN 06/17/23 Unknown History atorvastatin 40 mg tablet 40 mg PO DAILY 07/09/23 Unknown History cholecalciferol (vitamin D3) 75 75 mcg PO DAILY 07/09/23 Unknown History mcg (3,000 unit) tablet lisinopril 10 mg tablet 10 mg PO DAILY 07/09/23 Unknown History thiamine HCl (vitamin B1) 100 mg 100 mg PO DAILY 07/09/23 Unknown History tablet carvedilol 25 mg tablet 25 mg PO BID blood pressure #180 08/03/23 Unknown Rx tabs nitrofurantoin 100 mg PO BID 7 days #14 caps 12/12/23 Unknown Rx monohydrate/macrocrystals 100 mg capsule (Macrobid) cephalexin 500 mg capsule 500 mg PO BID 5 days #10 caps 12/14/23 Unknown Rx Allergy/AdvReac Type Severity Reaction Status Date / Time Penicillins AdvReac Severe Hives Verified 12/14/23 14:26 sulfamethoxazole (From AdvReac Intermediate Other Verified 12/14/23 14:26 Bactrim) trimethoprim (From Bactrim) AdvReac Intermediate Other Verified 12/14/23 14:26 Family History Father CAD (coronary artery disease) Mother CAD (coronary artery disease) Thyroid disorder Sister Thyroid cancer Grandmother Diabetes Grandfather Alcoholism Surgical History History of cardiac catheterization History of heart surgery (~2017) History of tricuspid valve repair (~01/19/18) History of aortic valve replacement with bioprosthetic valve (~01/19/18) S/P aortic valve replacement History of carpal tunnel surgery History of knee surgery History of gastric bypass Social History Smoking Status: Light Smoker (<10/day) alcohol intake: current alcohol intake frequency: holidays/special occasions only substance use type: does not use caffeine: Yes Type: coffee what type of physical activity do you participate in: none seatbelt use: always do you feel safe at home: Yes ROS ROS ED ROS Narrative Constitutional: Denies any fevers, chills, headaches, lightness, dizziness Cardiovascular: Denies chest pain or palpitations Respiratory: Denies coughing shortness of breath Abdomen: Denies abdominal pain nausea vomit diarrhea : Complains of increased frequency of urinating painful urination as noted above denies any hematuria Neurological: Denies numbness, weakness, tingling Musculoskeletal: Denies back pain Skin: Denies rashes or lesions EXAM Physical Exam Narrative Exam Narrative: General: Patient sitting in bed rest comfortably did not appear to be acute distress Head: Atraumatic, normocephalic Eyes: PERRL bilateral, EOMI bilateral, no conjunctival injection noted Neck: Soft, supple, trachea midline Cardiovascular: Regular rate and rhythm no murmurs gallops rubs noted Respiratory: Clear to auscultation bilaterally Abdomen: Soft, nondistended, pacemaker palpated in his abdomen, no rebound or guarding on exam, tenderness palpation noted in the suprapubic region Musculoskeletal: No CVA tenderness noted bilaterally Extremities: +5/5 strength noted in the bilateral upper and lower extremities, no pedal edema on exam Neurological: Patient following commands knew that he was at [facility] years 2023 Skin: Warm, dry, intact Const Vital Signs: 12/14/23 14:27 12/14/23 18:54 12/14/23 20:00 Temperature 96.1 F L Temperature Source Temporal Pulse Rate 72 87 82 Respiratory Rate 18 16 18 Blood Pressure 109/65 129/79 H Blood Pressure Mean 79 95 Pulse Ox 98 97 98 Oxygen Delivery Method Room Air Room Air MDM MDM MDM Narrative Medical decision making narrative: Patient is a 68-year-old male who presented to the emergency department with a chief complaint of painful urination increased frequency of urinating. Patient will have workup performed here on the differential diagnose includes but not limited to urinary tract infection, BPH, pyelonephritis although do feel that this less likely as he has no CVA tenderness on exam. Once workup is obtained and reviewed he will be reevaluated. Patient be given Rocephin. He states that he took penicillin and had hives at the age of 13 and has not had penicillin since then. Patient was given IV fluids. Patient was bladder scanned and was noted to have 793 mL in his bladder he had a Medina catheter placed and over 1 L of urine came out. Patient's CBC reviewed and showed no evidence leukocytosis white blood count normal at 4.9, hemoglobin was stable at 10, platelet count was noted to be 137, sodium normal 140, potassium was 4.5, creatinine was 2.38 this appears to be around his baseline, AST and ALT were 20 and 11 respectively. Patient's urinalysis was reviewed and showed 100 leukocyte esterase negative nitrites 10- 25 white cells with rare bacteria seen this was sent for culture. Patient's ultrasound of his kidneys and bladder reviewed and showed no hydronephrosis. Bilateral nephrolithiasis which is confirmed on prior CT no perinephric fluid collections and unremarkable symmetric renal size and cortical thickness. Did discuss results with the patient and he would like to go home at this point time. Patient will be discharged with Medina catheter in place as he had urinary retention and inability to completely empty his bladder. He was given a gram Rocephin once again he will be given a prescription for Keflex. He was encouraged to follow-up on urine culture with his primary care physician. He was referred to a urologist. He is advised to return with worsening symptoms or other concerns. All question concerns answered he is discharged home in stable condition. Lab Data Labs: Laboratory Results - last 24 hr 12/14/23 12/14/23 15:00 19:32 WBC 4.9 RBC 3.19 L Hgb 10.0 L Hct 34.5 L MCV 108.2 H MCH 31.3 MCHC 29.0 L RDW Std Deviation 69.5 H RDW Coeff of Hugo 17.5 H Plt Count 137 L MPV 9.9 Immature Gran % (Auto) 0.400 Neut % (Auto) 70.1 H Lymph % (Auto) 17.3 L [place] % (Auto) 10.6 H Eos % (Auto) 0.8 Baso % (Auto) 0.8 Absolute Neuts (auto) 3.5 Absolute Lymphs (auto) 0.85 Nucleated RBC % 0 Platelet Estimate SLT DEC RBC Morphology N CHROM Anisocytosis 1+ Macrocytosis 1+ Ovalocytes RARE Sodium 140 Potassium 4.5 Chloride 110 H Carbon Dioxide 24.0 Anion Gap 6 BUN 45 H Creatinine 2.38 H Estim Creat Clear Calc 36.98 Est GFR (MDRD) Af Amer 35 L Est GFR (MDRD) Non-Af 29 L BUN/Creatinine Ratio 18.9 Glucose 101 Calcium 9.3 Total Bilirubin 0.60 AST 20 ALT 11 L Alkaline Phosphatase 160 H Total Protein 7.8 Albumin 3.1 L Globulin 4.7 H Albumin/Globulin Ratio 0.7 L Urine Color Yellow Urine Clarity Sl. Cloudy Urine pH 6.0 Ur Specific [place] 1.010 Urine Protein 30 H Urine Glucose (UA) 100 H Urine Ketones Negative Urine Occult Blood Negative Urine Nitrite Negative Urine Bilirubin Negative Urine Urobilinogen Normal Ur Leukocyte Esterase 100 H Urine RBC 0-5 SEEN Urine WBC 10-25 SEEN Ur Squamous Epith Cells 0-5 SEEN Urine Bacteria RARE Urine Mucus 0 SEEN Radiography Diagnostic Testing: Clinical Impression(s) from Imaging Studies Renal Ultrasound 12/14/23 19:50 IMPRESSION: No hydronephrosis. Bilateral nephrolithiasis, confirmed on prior CT. No perinephric fluid collections. Unremarkable symmetric renal size and cortical thickness. Electronically Signed: Chandrika Vallejo MD at 21:13 EDT , Discharge Plan Triage Chief Complaint: Complaint ED Provider: Anshul Arambula Dx/Rx/DC Orders Clinical Impression: Urinary tract infection, Acute urinary retention Instructions: ED Urinary Retention, Male Prescriptions: New cephalexin 500 mg capsule 500 mg PO BID 5 Days Qty: 10 0RF No Action pantoprazole 20 mg tablet,delayed release (DR/EC) 40 mg PO BID dapagliflozin propanediol [Farxiga] 10 mg tablet 10 mg PO DAILY furosemide 40 mg tablet 40 mg PO DAILY PRN atorvastatin 40 mg tablet 40 mg PO DAILY lisinopril 10 mg tablet 10 mg PO DAILY cholecalciferol (vitamin D3) 75 mcg (3,000 unit) tablet 75 mcg PO DAILY thiamine HCl (vitamin B1) 100 mg tablet 100 mg PO DAILY nitrofurantoin monohyd/m-cryst [Macrobid] 100 mg capsule 100 mg PO BID 7 Days Qty: 14 0RF Rx Instructions: must administer with a meal/food acetaminophen 500 MG tablet 1,000 mg PO Q4H PRN (Reason: Pain) levothyroxine 150 mcg tablet 150 mcg PO DAILY furosemide 40 mg tablet 40 mg PO DAILY cyanocobalamin (vitamin B-12) 500 mcg tablet 500 mcg PO QDAY atorvastatin 20 mg tablet 20 mg PO DAILY Qty: 90 3RF amlodipine 5 mg tablet 5 mg PO DAILY Qty: 90 3RF Eliquis 5 mg tablet 5 mg PO BID Qty: 180 4RF carvedilol 25 mg tablet 25 mg PO BID Qty: 180 4RF Primary Care Provider: Tapan Cuellar Referrals: Tapan Cuellar DO [Primary Care Provider] - Binu Brannon MD [Med Staff - Active Staff] - Activity Restrictions/Additional Instructions: Follow-up with urologist that you are referred to. Take Keflex as prescribed. Follow-up on urine culture with your primary care physician or the urologist. Return with worsening symptoms or other concerns. Leave Medina in place until following up with urology. Print Language: Citizen Of [place] Disposition Disposition: Home, Self Care
[2023-12-14] MEDS: 0.9% Normal Saline (1000mL) 1,000 ML 999 ML IV (19:28)
[2023-12-14] MEDS: Ceftriaxone 1 GM/50 ML BAG IV (19:30)
[2023-12-14 19:44] LABS: Absolute Lymphocyte Count 0.85 X10^3/uL (0.83-4.51); Absolute Neutrophil Count 3.5 X10^3/uL (2.0-7.7); Basophil# 0.04 X10^3/uL; Basophil% 0.8 % (0-1); Eosinophil# 0.04 X10^3/uL; Eosinophils% 0.8 % (0-5); Hematocrit 34.5 % (40-54); Lymphocyte # 0.85 X10^3/ul (0.83-4.51); Lymphocyte % 17.3 % (19-41); Mean Corpuscular Hgb 31.3 pg (27.0-32.0); Mean Corpuscular Volume 108.2 fL (80-94); Mean Platelet Vol. 9.9 fl (6.2-12.0); Monocyte# 0.52 X10^3/uL; Monocyte% 10.6 % (0-10); NRBC Flagged by Analyzer 0 % (0-5); Neutrophil # 3.45 X10^3/uL (2.7-7.7); Neutrophil % 70.1 % (47-70); POSITIVE MORPHOLOGY YES; Platelet Count 137 K/mm3 (150-450); RBC Distribution Width CV 17.5 % (11.6-14.6); RBC Distribution Width SD 69.5 fl (35.1-43.9); Red Blood Count 3.19 M/mm3 (4.6-6.2); White Blood Count 4.9 K/mm3 (4.4-11.0)
--- NOTE | 2023-12-14 19:50 | US_ITS ---
EXAM: US RETROPERITONEAL LIMITED, RENAL CLINICAL INDICATION: urinary retention TECHNIQUE: Limited grayscale and color Doppler sonographic evaluation of the retroperitoneum was performed. COMPARISON: Kidneys were included June 05, 2023 there was cholelithiasis and mildly prominently distended gallbladder and periportal nodular focus of 4.1 cm x 3.[address] June 17, 2023 showed nodule separate from the caudate lobe but immediately adjacent to the caudate lobe and IVC, SMA, and separate from the pancreas, suspected lymph node. 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 Cortical thickness 1.4 cm. No hydronephrosis. Suspected 5 mm x 3 mm stone, single tiny stone was noted in the right kidney on prior CT. No other focal lesion. No perinephric collection is demonstrated. LEFT KIDNEY: 10 cm x 4.6 cm x 4.9 cm. No hydronephrosis. Multiple tiny suspected stones. At least one tiny calcification is noted on review of prior CT. No focal lesion. No perinephric collection is demonstrated. URINARY BLADDER: Collapsed with Medina catheter, not evaluated. US/Kidney and Bladder IMPRESSION: No hydronephrosis. Bilateral nephrolithiasis, confirmed on prior CT. No perinephric fluid collections. Unremarkable symmetric renal size and cortical thickness. Electronically Signed: Chandrika Vallejo MD at 21:13 EDT ,
[2023-12-14 20:00] VITALS: BP 129/79; PULSE 82; RESP 18; O2SAT 98
[2023-12-14 20:02] LABS: ALB/GLOB Ratio 0.7 RATIO (0.9-2.4); AST(SGOT) 20 U/L (15-37); Alanine Aminotransfer ALT/SGPT 11 U/L (16-61); Albumin, Serum 3.1 g/dL (3.2-5.0); Alkaline Phosphatase 160 U/L (45-117); Anion Gap 6 (5-15); BUN 45 mg/dL (7-18); BUN/Creat Ratio 18.9 RATIO (10-20); Calcium,Total 9.3 mg/dL (8.5-10.1); Chloride 110 mmol/L (98-107); Creatinine, Serum 2.38 mg/dL (0.70-1.30); EST Glomerular Filtration Rate 29 mL/min (>60); Est Glom Filt Rate - Afr Amer 35 mL/min (>60); Estimated Creatinine Clearance 36.98 ml/min; Globulin 4.7 g/dL (2.2-4.2); Glucose 101 mg/dL (74-106); Potassium 4.5 mmol/L (3.5-5.1); Protein, Total 7.8 g/dL (6.4-8.2); Sodium Level 140 mmol/L (136-145)
[2023-12-14 20:14] LABS: Differential Indicated SCAN CRITERIA MET
[2023-12-14 20:15] LABS: Anisocytosis 1+; Macrocytosis 1+; Platelet Estimate SLT DEC (ADEQ); Red Cell Morphology N CHROM NORMAL (NORM C&C)
[2023-12-14 20:16] LABS: Ovalocyte RARE
[2023-12-14 22:03] VITALS: BP 110/72; PULSE 72; RESP 18; TEMP 36.6; O2SAT 97
== END 2023-12-14 22:04 | disposition home or self-care (01) ==
PROVIDERS: Emergency Provider Emergency Medicine; PCP Family Medicine; Visit Provider Emergency Medicine
DX: N39.0 Urinary tract infection, site not specified (principal); I48.0 Paroxysmal atrial fibrillation; N18.32 Chronic kidney disease, stage 3b; F17.200 Nicotine dependence, unspecified, uncomplicated; I12.9 Hypertensive chronic kidney disease with stage 1 through stage 4 chronic kidney disease, or unspecified chronic kidney disease; E78.00 Pure hypercholesterolemia, unspecified; I25.10 Atherosclerotic heart disease of native coronary artery without angina pectoris; Z79.01 Long term (current) use of 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s; R33.9 Retention of urine, unspecified; Z95.0 Presence of cardiac pacemaker; Z86.73 Personal history of transient ischemic attack (TIA), and cerebral infarction without residual deficits
CPT/HCPCS: 76770; 80053; 81001; 85025; 87086; 96365; 96366; 99283; J7030; A4216

== ENCOUNTER → 2023-12-14 | Outpatient (CLI) | payer MEDICARE, OTHER, SELFPAY | END | disposition home or self-care (01) | LOC: LABSPEC 10:35 | PROVIDERS: PCP Family Medicine; Referring Provider Nurse Practitioner Family; Visit Provider Nurse Practitioner Family | DX: N39.0 Urinary tract infection, site not specified (principal) | CPT/HCPCS: 87086; 87088; 87186 ==

== ENCOUNTER 2023-12-26 10:23 | Inpatient (IN) | payer MEDICARE, OTHER, SELFPAY ==
[2023-12-26] VITALS (12 sets, daily range): BP systolic 113–127; BP diastolic 68–82; PULSE 60–94; RESP 14–18; TEMP 35.7–36.6; O2SAT 87–98; BMI 25.4; BMI 25.0
--- NOTE | 2023-12-26 10:40 | EKG12_ITS ---
Test Reason : URINARY COMPLAINT Blood Pressure : / mmHG Vent. Rate : 061 BPM Atrial Rate : 043 BPM P-R Int : 000 ms QRS Dur : 172 ms QT Int : 482 ms P-R-T Axes : 000 -86 090 degrees QTc Int : 485 ms Ventricular-paced rhythm Abnormal ECG Confirmed by EVIN ZAMORA, SANDRA ([id number]), web content editor LEONOR WIN ([id number]) on 12/29/2023 10:00:39 AM Referred By: Confirmed By:SANDRA CLEARY MD
--- NOTE | 2023-12-26 10:41 | ED.VIS.DYS ---
HPI History of Present Illness Chief Complaint: Complaint Informant: patient Narrative Narrative: Patient states he presents with both acute urinary retention and dyspnea that both started overnight/this morning. He states 2 weeks ago he was here for urinary retention and needed a catheter and was diagnosed with infection and was put on antibiotics. He followed up with his urologist Dr. Brannon, he put him on Flomax that he just started 4 days ago and antibiotics are now finished. He states the catheters been out for a week and now all of a sudden he can urinate again. He thinks he felt it coming on yesterday but denies burning dysuria or hematuria. He denies low back pain, fevers, chills, nausea or vomiting. He states this morning he is dyspneic. It is worse with lying down and worse with exerting himself but he feels dyspneic at rest right now. He states he has a cough is nonproductive. He denies any fevers or chills or chest pain. No history of DVT or PE that he knows of, no leg pain or swelling. No recent travel or immobilization. He is on Eliquis, apparently a history of stroke. [facility] Medical History Infected sebaceous cyst of skin EPO-resistant anemia Hepatomegaly Edema Dyspnea Chronic kidney disease (CKD) stage G3b/A1, moderately decreased glomerular filtration rate (GFR) between 30-44 mL/min/1.73 square meter and albuminuria creatinine ratio less than 30 mg/g CKD (chronic kidney disease) stage 3, GFR 30-59 ml/min Hyperthyroidism ICD (implantable cardioverter-defibrillator) in place Pacemaker TIA (transient ischemic attack) Anemia Abscess of left buttock Wears dentures Open wound Thyroid disease Anemia High cholesterol History of GI bleed History of ulceration Smoker Leg cramps History of echocardiogram Cardiology follow-up encounter Edema of left lower extremity Acute bronchitis, unspecified Stroke Acute stomach ulcer Kidney disease HTN (hypertension) PAF (paroxysmal atrial fibrillation) Mild atherosclerosis of both carotid arteries History of stroke Presence of biventricular cardiac pacemaker Vitamin deficiency Ulcer Kidney failure Carpal tunnel syndrome Nonrheumatic tricuspid valve regurgitation Aortic valve endocarditis (~12/2017) Acute CVA (cerebrovascular accident) (10/27/17) 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 ligation residential current use of 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 Atrial fibrillation Sinus bradycardia Presence of permanent cardiac pacemaker (~01/19/18) Mitral valve insufficiency and aortic valve insufficiency Sick sinus syndrome SOB (shortness of breath) Anemia, iron deficiency Hypothyroidism Tobacco abuse Aortic stenosis Atherosclerotic heart disease of citizen [place] coronary artery without angina pectoris Atrioventricular block, type I Premature ventricular contraction Abnormal EKG Hyperlipidemia Ventricular hypertrophy Bruit of left carotid artery Retinal embolus Home Medications ?Medication ?Instructions ?Recorded ?Last Taken ?Type cyanocobalamin (vitamin B-12) 500 500 mcg PO QDAY SUPPLEMENT 03/27/17 12/25/23 History mcg tablet acetaminophen 500 mg tablet 1,000 mg PO Q4H PRN Pain 10/27/17 03/30/23 History pantoprazole 20 mg tablet,delayed 40 mg PO BID reflux 03/15/18 03/31/23 History release dapagliflozin propanediol 10 mg 10 mg PO DAILY diabetes 11/25/22 12/26/23 History tablet (Farxiga) atorvastatin 20 mg tablet 20 mg PO DAILY cholesterol #90 tabs 02/06/23 12/25/23 Rx amlodipine 5 mg tablet 5 mg PO DAILY blood pressure #90 02/23/23 12/26/23 Rx tabs apixaban 5 mg tablet (Eliquis) 5 mg PO BID blood thinner #180 tabs 03/10/23 12/26/23 Rx levothyroxine 150 mcg tablet 150 mcg PO DAILY thyroid 03/31/23 03/31/23 History furosemide 40 mg tablet 40 mg PO DAILY REDUCE FLUIDS 04/14/23 Unknown History furosemide 40 mg tablet 20 mg PO DAILY PRN FOR FLUID 06/17/23 Unknown History RETENTION cholecalciferol (vitamin D3) 75 75 mcg PO DAILY SUPPLEMENT 07/09/23 12/25/23 History mcg (3,000 unit) tablet thiamine HCl (vitamin B1) 100 mg 100 mg PO DAILY 07/09/23 Unknown History tablet carvedilol 25 mg tablet 25 mg PO BID blood pressure #180 08/03/23 12/26/23 Rx tabs tamsulosin 0.4 mg capsule 0.4 mg PO DAILY HELP WITH URINE 12/26/23 12/25/23 History FLOW Allergy/AdvReac Type Severity Reaction Status Date / Time Penicillins AdvReac Severe Hives Verified 12/26/23 10:26 sulfamethoxazole (From AdvReac Intermediate Other Verified 12/26/23 10:26 Bactrim) trimethoprim (From Bactrim) AdvReac Intermediate Other Verified 12/26/23 10:26 Family History Father CAD (coronary artery disease) Mother CAD (coronary artery disease) Thyroid disorder Sister Thyroid cancer Grandmother Diabetes Grandfather Alcoholism Surgical History History of cardiac catheterization History of heart surgery (~2017) History of tricuspid valve repair (~01/19/18) History of aortic valve replacement with bioprosthetic valve (~01/19/18) S/P aortic valve replacement History of carpal tunnel surgery History of knee surgery History of gastric bypass Social History Smoking Status: Current some day smoker tobacco type: cigars per week: 21 alcohol intake: current alcohol intake frequency: holidays/special occasions only substance use type: does not use caffeine: Yes Type: coffee what type of physical activity do you participate in: none seatbelt use: always do you feel safe at home: Yes ROS ROS ED Constitutional Constitutional ED: Denies chills or fever(s) Eyes Eyes: Denies change in vision or diplopia ENT ENT ED: Denies rhinorrhea or sore throat Cardiovascular Cardiovascular: Denies chest pain or palpitations Respiratory/Chest Respiratory/Chest: Reports cough, dyspnea and dyspnea on exertion; Denies sputum Gastrointestinal Gastrointestinal: Reports abdominal pain; Denies diarrhea, nausea or vomiting Genitourinary Genitourinary ED: Reports as per HPI and difficulty urinating; Denies burning urination, dysuria or hematuria Musculoskeletal Musculoskeletal: Denies back pain or neck pain Integumentary Denies abscess or rash Neurologic Neurologic: Denies headache(s), paresthesias or weakness EXAM Physical Exam Const Vital Signs: 12/26/23 10:24 12/26/23 11:32 12/26/23 12:24 Temperature 97.6 F L 96.3 F L Temperature Source Oral Temporal Pulse Rate 94 61 60 Respiratory Rate 16 18 14 Blood Pressure 121/82 H 123/78 H 114/73 Blood Pressure Mean 95 93 86 Pulse Ox 98 97 93 Oxygen Delivery Method Room Air Room Air Room Air Oxygen Flow Rate (L/min) 12/26/23 13:24 10/05/24 13:42 12/26/23 13:43 Temperature 97.9 F Temperature Source Oral Pulse Rate 64 Respiratory Rate 14 Blood Pressure 115/76 Blood Pressure Mean 89 Pulse Ox 92 88 87 Oxygen Delivery Method Room Air Room Air Room Air Oxygen Flow Rate (L/min) 12/26/23 13:44 12/26/23 14:00 Temperature 97.8 F Temperature Source Oral Pulse Rate 60 60 Respiratory Rate 14 14 Blood Pressure 113/77 127/73 H Blood Pressure Mean 89 91 Pulse Ox 97 92 Oxygen Delivery Method Nasal Cannula Nasal Cannula Oxygen Flow Rate (L/min) 2 2 Positive well nourished and well developed General Appearance ED: well developed and NAD HEENT Reports moist mucous membranes normocephalic and atraumatic Eyes PERRL and EOMs intact bilaterally Neck full ROM, supple and no JVD Resp normal respiratory effort and clear to auscultation bilaterally Effort and Inspection: able to speak in complete sentences Cardio regular rate and regular rhythm Heart Sounds: murmur systolic II/ crescendo-decrescendo left sternal border GI non-tender and non-distended Auscultation: normoactive bowel sounds Palpation: soft Back/Spine no CVA tenderness General Back: other FROM Extremity normal to inspection General Extremety ED: Negative for edema, pulses abnormal or tenderness General Extremity: Negative for edema or pulses abnormal Neuro oriented x3, CN's II-XII intact bilaterally and no sensory deficits noted Sensorium / Orientation: awake and alert Motor Exam: strength 5/5 throughout Psych mental status grossly normal Skin no rashes or lesions noted and no wounds MDM MDM MDM Narrative Medical decision making narrative: [place] catheter was placed, over 500 cc came out, cloudy with sediment. He felt better. Was sent for urinalysis, consistent with infection. Reviewing his culture from 1.5 weeks ago, it grew out ESBL E. coli. It is sensitive to sulfa but he is allergic to that. He is also allergic to penicillins. This explains why he was changed to nitrofurantoin from his additional ciprofloxacin. However I would argue he could possibly be feeling outpatient treatment since he has urinary retention recurrent in less than 1 week after removing the catheter. He does have a leukocytosis and it is plausible that his dyspnea is due to an acidotic state although he does not have an anion gap elevation on the metabolic panel. His kidney function is similar, he is prerenal may be because of obstructed urinary outlet which is taking care of. Chest x-ray 2 views of my interpretation show chronic. Abnormality in right middle lobe but nothing acute as radiology is confirming this. I do not think he needs to be tested for pulmonary embolus since he is anticoagulated. His EKG shows paced rhythm no acute injury, his BNP is abnormal but not very high, and his troponin is within normal limits. He is not objectively dyspneic at rest, however while monitoring him in the ED, he is 89-90% on room air and visiting family member states that he was down at 83% at 1 point. I was going to have nursing ambulate him on pulse oximetry, however when they went to evaluate him he was persistently resting at 87% on room air so they put him on 2 L nasal cannula bringing him up into the mid 90s. Discussed with hospitalist for admission further evaluation testing and treatment. Patient is getting meropenem and tolerating it well without a reaction or allergy. Lactate is within normal limits. Hospitalist requested CT plain given his renal function, of the chest; that is ordered. I reviewed the images. It does not appear to show any groundglass infiltrates or acute consolidation/pneumonia or pleural effusions, on my interpretation I see perhaps some basilar atelectasis bilaterally. Per radiology, in agreement showing pulmonary emphysema. History & Record Review Additional record(s) reviewed:: Prior outpatient record (Last ECHO EF 60%, bioprosthetic aortic valve; 05/2023) Lab Data Attestation: I reviewed the patient's lab results. Labs: Laboratory Results - last 24 hr 12/26/23 12/26/23 11:00 13:25 WBC 13.6 H RBC 3.10 L Hgb 9.8 L Hct 32.7 L MCV 105.5 H MCH 31.6 MCHC 30.0 L RDW Std Deviation 65.1 H RDW Coeff of [place] 17.0 H Plt Count 229 MPV 9.3 Immature Gran % (Auto) 0.500 Neut % (Auto) 84.7 H Lymph % (Auto) 8.1 L Frontier % (Auto) 6.2 Eos % (Auto) 0.4 Baso % (Auto) 0.1 Absolute Neuts (auto) 11.5 H Absolute Lymphs (auto) 1.11 Nucleated RBC % 0.1 Differential Comment SCANNED Platelet Estimate ADEQUATE Polychromasia 1+ Hypochromasia 1+ Anisocytosis 3+ Macrocytosis 2+ Target Cells RARE Stomatocytes 1+ Sodium 138 Potassium 4.5 Chloride 105 Carbon Dioxide 29.0 Anion Gap 4 L BUN 64 H Creatinine 2.15 H Estim Creat Clear Calc 40.93 Est GFR (MDRD) Af Amer 40 L Est GFR (MDRD) Non-Af 33 L BUN/Creatinine Ratio 29.8 H Glucose 87 Lactic Acid 0.7 Calcium 8.0 L Troponin I High Sens 30 B-Natriuretic Peptide 195.0 H Urine Color Yellow Urine Clarity Turbid Urine pH 7.0 Ur Specific [place] 1.010 Urine Protein 100 H Urine Glucose (UA) Normal Urine Ketones Negative Urine Occult Blood 250 H Urine Nitrite Negative Urine Bilirubin Negative Urine Urobilinogen Normal Ur Leukocyte Esterase 500 H Urine RBC 50-100 SEEN Urine WBC >100 SEEN Ur Squamous Epith Cells 0 SEEN Ur Transition Epith Cell 5-10 SEEN Ur Renal Epithelial Cell 25-50 SEEN Urine Bacteria 3+ Urine Mucus 0 SEEN Radiography Diagnostic Testing: Clinical Impression(s) from Imaging Studies Chest X-Ray 12/26/23 11:20 IMPRESSION: Stable examination demonstrating no acute cardiopulmonary process. Electronically Signed: Charley Butler MD at 11:42 EDT , Rhythm Strip Rhythm Strip: Paced Rate: 60 Ectopy: None EKG Initial EKG: Attestation: I personally reviewed and interpreted this EKG as follows: Interpretation: No Acute Injury Pattern and Paced Prior EKG tracings: available for review Prior: Unchanged Management Discussion w/another healthcare provider: Hospitalist Discharge Plan Dx/Rx/DC Orders Clinical Impression: Acute urinary retention, Hypoxemia, UTI due to extended-spectrum beta lactamase (ESBL) producing Escherichia coli, Failure of outpatient treatment Disposition Disposition: [facility] Discharge Date/Time: 12/26/23 15:59
[2023-12-26 11:04] LABS: Mucous, Urine 0 SEEN /hpf (<or=2+); Squamous Epithelial Cells - UA 0 SEEN /hpf (0-5)
[2023-12-26 11:06] LABS: Color, Urine Yellow (Yellow); Glucose, Dipstick Normal (Normal); Ketone-Dipstick Negative (Negative); Leukocyte Esterase-Dipstick 500 /ul (Negative); Nitrite-Dipstick Negative (Negative); Occult Blood-Urine 250 /ul (Negative); Protein-Dipstick 100 mg/dl (Negative); Urine Bilirubin Dipstick Negative (Negative); Urine Clarity Turbid (Clear); Urine Urobilinogen Normal (Normal)
[2023-12-26 11:10] LABS: Absolute Lymphocyte Count 1.11 X10^3/uL (0.83-4.51); Absolute Neutrophil Count 11.5 X10^3/uL (2.0-7.7); Basophil# 0.01 X10^3/uL; Basophil% 0.1 % (0-1); Eosinophil# 0.05 X10^3/uL; Eosinophils% 0.4 % (0-5); Hematocrit 32.7 % (40-54); Hemoglobin 9.8 g/dL (13.0-16.5); Lymphocyte # 1.11 X10^3/ul (0.83-4.51); Lymphocyte % 8.1 % (19-41); Mean Corpuscular Hgb 31.6 pg (27.0-32.0); Mean Corpuscular Volume 105.5 fL (80-94); Mean Platelet Vol. 9.3 fl (6.2-12.0); Monocyte# 0.85 X10^3/uL; Monocyte% 6.2 % (0-10); NRBC Flagged by Analyzer 0.1 % (0-5); Neutrophil # 11.54 X10^3/uL (2.7-7.7); Neutrophil % 84.7 % (47-70); POSITIVE MORPHOLOGY YES; Platelet Count 229 K/mm3 (150-450); RBC Distribution Width SD 65.1 fl (35.1-43.9); White Blood Count 13.6 K/mm3 (4.4-11.0)
[2023-12-26 11:11] LABS: Differential Indicated SCAN CRITERIA MET
[2023-12-26 11:16] LABS: Bacteria 3+ /hpf (None Seen); Red Blood Cells-Urine 50-100 SEEN /hpf (0-5); Renal Epithelial Cells 25-50 SEEN /hpf (0-5)
[2023-12-26 11:17] LABS: Transitional Epithelial - Ur 5-10 SEEN /hpf (0-5); White Blood Cells >100 SEEN /hpf (0-5)
--- NOTE | 2023-12-26 11:20 | RAD_ITS ---
INDICATION: Shortness of breath EXAMINATION/TECHNIQUE: X-RAY - XR Chest 2 Views COMPARISON: June 17, [address] of the abdomen dated June 17, 2023 FINDINGS: LINES/DEVICES: There are sternotomy wires in place. There are multiple leads within the anterior mediastinum. There is an 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 clip in place. LUNGS: The lungs remain hyperinflated. There is a stable ill-defined opacity within the right lower lung that appears to be secondary to a confluence of shadows. There is stable blunting of the right costophrenic angle. No pneumothorax. MEDIASTINUM AND CARDIOVASCULAR STRUCTURES: Cardiac silhouette not enlarged. Central airways and mediastinal contour are unremarkable. BONES AND SOFT TISSUES: Unremarkable. RAD/Chest PA and Lateral IMPRESSION: Stable examination demonstrating no acute cardiopulmonary process. Electronically Signed: Charley Butler MD at 11:42 EDT ,
[2023-12-26 11:34] LABS: Anisocytosis 3+; Differential Comment SCANNED; Hypochromasia 1+; Macrocytosis 2+; Platelet Estimate ADEQUATE (ADEQ); Polychromasia 1+
[2023-12-26 11:35] LABS: Stomatocyte 1+; Target Cells RARE
[2023-12-26 11:37] LABS: Anion Gap 4 (5-15); BUN 64 mg/dL (7-18); BUN/Creat Ratio 29.8 RATIO (10-20); Chloride 105 mmol/L (98-107); Creatinine, Serum 2.15 mg/dL (0.70-1.30); EST Glomerular Filtration Rate 33 mL/min (>60); Est Glom Filt Rate - Afr Amer 40 mL/min (>60); Estimated Creatinine Clearance 40.93 ml/min; Glucose 87 mg/dL (74-106); Potassium 4.5 mmol/L (3.5-5.1); Sodium Level 138 mmol/L (136-145); Troponin-I HS 30 pg/mL (3.0-78.0)
[2023-12-26] MEDS: Meropenem 1 GM in 0.9% Normal Saline (100mL MB+) 100 ML IV (13:36)
[2023-12-26 14:10] LABS: Lactic Acid 0.7 mmol/L (0.4-1.9)
--- NOTE | 2023-12-26 14:29 | CT_ITS ---
INDICATION: hypoxemia, shortness of breath EXAMINATION: CT CHEST WITHOUT CONTRAST - CT Chest W/O Contrast Injection TECHNIQUE: Helically acquired images were obtained of the chest. The protocol utilizes one or more of the following dose reduction techniques: automated exposure control, adjustment of mA and/or kV according to patient size,and/or use of iterative reconstruction technique. IV Contrast dosage and agent: None. RADIATION DOSAGE (If Supplied By Facility): CTDIvol = ( 12.55 ) mGy, DLP = ( 457.96 ) mGycm COMPARISON: CT of the abdomen and pelvis dated June 17, 2023 FINDINGS: LUNGS, PLEURA AND LARGE AIRWAYS: There are bilateral emphysematous changes. There is stable left basilar atelectasis and/or scarring. No pneumothorax. THYROID: No thyroid lesions. HEART AND PERICARDIUM: Heart size is normal. No pericardial effusion. There is an 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 clip in place. CORONARY ARTERIES: Coronary artery calcification is seen. VESSELS: Thoracic aorta is not dilated. There are peripheral calcifications of the thoracic aorta. MEDIASTINUM AND [place]: No mediastinal or hilar adenopathy. Esophagus is unremarkable. No hiatal hernia. UPPER ABDOMEN: There is a stable enlarged lymph node within the upper abdomen medial to the caudate lobe of the liver. BONES: There are degenerative changes of the thoracic spine. There are right seventh, eighth, ninth and 10th rib deformities consistent with healed fractures. CT/Chest without Contrast IMPRESSION: Emphysema. Pulmonary emphysema on CT is an independent risk factor for lung cancer. Recommend consideration for low dose CT (LD CT) lung cancer screening in the future. Atherosclerosis. Stable partially visualized enlarged lymph node medial to the caudate lobe. Electronically Signed: Charley Butler MD at 16:05 EDT ,
--- NOTE | 2023-12-26 14:32 | NURSING ---
MED SURG [place] URINARY RETENTION, UTI, FAILURE OP TX, HYPOXEMIA
--- NOTE | 2023-12-26 14:58 | PCM.HP.STD ---
[facility] - General General Date of Admission: 12/26/23 Date of Service: 12/26/23 Chief Complaint: Urinary retention [facility] Narrative DAKOTA RIVERA, is a 68 M with a significant history of atrial fibrillation on Eliquis; polyclonal gammopathy; CVA; permanent pacemaker implantation; previous mechanical aortic valve and now cadaver aortic valve who presents to the emergency department with urinary retention that recurred about a week ago. Of note about 2 weeks ago patient had urinary retention and was placed on antibiotics and had an indwelling Medina catheter placed. Patient was diagnosed with ESBL E. coli and was placed on Macrobid. Patient completed course of antibiotics. Patient now returns with recurrence of urinary retention. She reports that with removal of the previous indwelling Medina catheter patient could urinate but at the days progressed he was finding it more difficult to urinate. Associated with his symptoms is dyspnea. With his dyspnea he had orthopnea and paroxysmal nocturnal dyspnea. At the emergency department he required supplemental oxygen. Of note patient is compliant with his home Eliquis for A-fib except that a day before presentation he missed one dose of his Eliquis. [facility] Medical History Infected sebaceous cyst of skin EPO-resistant anemia Hepatomegaly Edema Dyspnea Chronic kidney disease (CKD) stage G3b/A1, moderately decreased glomerular filtration rate (GFR) between 30-44 mL/min/1.73 square meter and albuminuria creatinine ratio less than 30 mg/g CKD (chronic kidney disease) stage 3, GFR 30-59 ml/min Hyperthyroidism ICD (implantable cardioverter-defibrillator) in place Pacemaker TIA (transient ischemic attack) Anemia Abscess of left buttock Wears dentures Open wound Thyroid disease Anemia High cholesterol History of GI bleed History of ulceration Smoker Leg cramps History of echocardiogram Cardiology follow-up encounter Edema of left lower extremity Acute bronchitis, unspecified Stroke Acute stomach ulcer Kidney disease HTN (hypertension) PAF (paroxysmal atrial fibrillation) Mild atherosclerosis of both carotid arteries History of stroke Presence of biventricular cardiac pacemaker Vitamin deficiency Ulcer Kidney failure Carpal tunnel syndrome Nonrheumatic tricuspid valve regurgitation Aortic valve endocarditis (~12/2017) Acute CVA (cerebrovascular accident) (10/27/17) 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 ligation [facility] current use of 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 Atrial fibrillation Sinus bradycardia Presence of permanent cardiac pacemaker (~01/19/18) Mitral valve insufficiency and aortic valve insufficiency Sick sinus syndrome SOB (shortness of breath) Anemia, iron deficiency Hypothyroidism Tobacco abuse Aortic stenosis Atherosclerotic heart disease of [place] coronary artery without angina pectoris Atrioventricular block, type I Premature ventricular contraction Abnormal EKG Hyperlipidemia Ventricular hypertrophy Bruit of left carotid artery Retinal embolus Home Medications ?Medication ?Instructions ?Recorded ?Last Taken ?Type cyanocobalamin (vitamin B-12) 500 500 mcg PO QDAY SUPPLEMENT 03/27/17 12/25/23 History mcg tablet acetaminophen 500 mg tablet 1,000 mg PO Q4H PRN Pain 10/27/17 03/30/23 History pantoprazole 20 mg tablet,delayed 40 mg PO BID reflux 03/15/18 03/31/23 History release dapagliflozin propanediol 10 mg 10 mg PO DAILY diabetes 11/25/22 12/26/23 History tablet (Farxiga) atorvastatin 20 mg tablet 20 mg PO DAILY cholesterol #90 tabs 02/06/23 12/25/23 Rx amlodipine 5 mg tablet 5 mg PO DAILY blood pressure #90 02/23/23 12/26/23 Rx tabs apixaban 5 mg tablet (Eliquis) 5 mg PO BID blood thinner #180 tabs 03/10/23 12/26/23 Rx levothyroxine 150 mcg tablet 150 mcg PO DAILY thyroid 03/31/23 03/31/23 History furosemide 40 mg tablet 40 mg PO DAILY REDUCE FLUIDS 04/14/23 Unknown History furosemide 40 mg tablet 20 mg PO DAILY PRN FOR FLUID 06/17/23 Unknown History RETENTION cholecalciferol (vitamin D3) 75 75 mcg PO DAILY SUPPLEMENT 07/09/23 12/25/23 History mcg (3,000 unit) tablet thiamine HCl (vitamin B1) 100 mg 100 mg PO DAILY 07/09/23 Unknown History tablet carvedilol 25 mg tablet 25 mg PO BID blood pressure #180 08/03/23 12/26/23 Rx tabs tamsulosin 0.4 mg capsule 0.4 mg PO DAILY HELP WITH URINE 12/26/23 12/25/23 History FLOW Allergy/AdvReac Type Severity Reaction Status Date / Time Penicillins AdvReac Severe Hives Verified 12/26/23 10:26 sulfamethoxazole (From AdvReac Intermediate Other Verified 12/26/23 10:26 Bactrim) trimethoprim (From Bactrim) AdvReac Intermediate Other Verified 12/26/23 10:26 Family History Father CAD (coronary artery disease) Mother CAD (coronary artery disease) Thyroid disorder Sister Thyroid cancer Grandmother Diabetes Grandfather Alcoholism Surgical History History of cardiac catheterization History of heart surgery (~2017) History of tricuspid valve repair (~01/19/18) History of aortic valve replacement with bioprosthetic valve (~01/19/18) S/P aortic valve replacement History of carpal tunnel surgery History of knee surgery History of gastric bypass Social History Smoking Status: Current some day smoker tobacco type: cigars per week: 21 alcohol intake: current alcohol intake frequency: holidays/special occasions only substance use type: does not use caffeine: Yes Type: coffee what type of physical activity do you participate in: none seatbelt use: always do you feel safe at home: Yes ROS ROS Narrative Pertinent positives and pertinent negatives as noted in HPI. All other systems were reviewed and are negative Vital Signs Vital Signs Vital Signs: 12/26/23 10:24 12/26/23 11:32 12/26/23 12:24 Temperature 97.6 F L 96.3 F L Temperature Source Oral Temporal Pulse Rate 94 61 60 Respiratory Rate 16 18 14 Blood Pressure 121/82 H 123/78 H 114/73 Blood Pressure Mean 95 93 86 Pulse Ox 98 97 93 Oxygen Delivery Method Room Air Room Air Room Air Oxygen Flow Rate (L/min) 12/26/23 13:24 12/26/23 13:42 12/26/23 13:43 Temperature 97.9 F Temperature Source Oral Pulse Rate 64 Respiratory Rate 14 Blood Pressure 115/76 Blood Pressure Mean 89 Pulse Ox 92 88 87 Oxygen Delivery Method Room Air Room Air Room Air Oxygen Flow Rate (L/min) 12/26/23 13:44 12/26/23 14:00 Temperature 97.8 F Temperature Source Oral Pulse Rate 60 60 Respiratory Rate 14 14 Blood Pressure 113/77 127/73 H Blood Pressure Mean 89 91 Pulse Ox 97 92 Oxygen Delivery Method Nasal Cannula Nasal Cannula Oxygen Flow Rate (L/min) 2 2 Weight Weight: 94.886 kg Body Mass Index (BMI) 25.4 Physical Exam Narrative Physical exam: General: Well-nourished, well-developed. Head: Normocephalic, atraumatic, no tenderness Eyes: Vision is grossly intact. EOMI ENT, no trauma, moist mucous membranes, no rhinorrhea Neck: Nontender, No thyromegaly. CVS: Regular rate and rhythm. Murmur present. Respiratory : clear to auscultation bilaterally, chest wall nontender Abdomen: Soft, nontender, nondistended, normal bowel sounds, no masses : Deferred Back: Nontender, no CVA tenderness, no midline spinal tenderness, deformities, step-offs Extremities: Nontender full range of motion, no trauma Skin: Normal color, no trauma, abrasions Neuro: Alert, oriented, cranial nerves II through XII grossly intact. Psychiatry: Normal mood. Normal affect. Not depressed. Not anxious. Results Lab / Micro Data 12/26/23 11:00 12/26/23 11:00 Labs: Laboratory Results - last 24 hr 12/26/23 11:00: WBC 13.6 H, RBC 3.10 L, Hgb 9.8 L, Hct 32.7 L, MCV 105.5 H, MCH 31.6, MCHC 30.0 L, RDW Std Deviation 65.1 H, RDW Coeff of Hugo 17.0 H, Plt Count 229, MPV 9.3, Immature Gran % (Auto) 0.500, Neut % (Auto) 84.7 H, Lymph % (Auto) 8.1 L, [place] % (Auto) 6.2, Eos % (Auto) 0.4, Baso % (Auto) 0.1, Absolute Neuts (auto) 11.5 H, Absolute Lymphs (auto) 1.11, Nucleated RBC % 0.1, Differential Comment SCANNED, Platelet Estimate ADEQUATE, Polychromasia 1+, Hypochromasia 1+, Anisocytosis 3+, Macrocytosis 2+, Target Cells RARE, Stomatocytes 1+, Sodium 138, Potassium 4.5, Chloride 105, Carbon Dioxide 29.0, Anion Gap 4 L, BUN 64 H, Creatinine 2.15 H, Estim Creat Clear Calc 40.93, Est GFR (MDRD) Af Amer 40 L, Est GFR (MDRD) Non-Af 33 L, BUN/Creatinine Ratio 29.8 H, Glucose 87, Calcium 8.0 L, Troponin I High Sens 30, B-Natriuretic Peptide 195.0 H, Urine Color Yellow, Urine Clarity Turbid, Urine pH 7.0, Ur Specific [place] 1.010, Urine Protein 100 H, Urine Glucose (UA) Normal, Urine Ketones Negative, Urine Occult Blood 250 H, Urine Nitrite Negative, Urine Bilirubin Negative, Urine Urobilinogen Normal, Ur Leukocyte Esterase 500 H, Urine RBC 50-100 SEEN, Urine WBC >100 SEEN, Ur Squamous Epith Cells 0 SEEN, Ur Transition Epith Cell 5-10 SEEN, Ur Renal Epithelial Cell 25-50 SEEN, Urine Bacteria 3+, Urine Mucus 0 SEEN 12/26/23 13:25: Lactic Acid 0.7 Rhythm Strip Rhythm Strip: Paced Rate: 60 Ectopy: None Imaging Radiology Impression Chest X-Ray 12/26/23 11:20 IMPRESSION: Stable examination demonstrating no acute cardiopulmonary process. Electronically Signed: Charley Butler MD at 11:42 EDT , Assessment & Plan Assessment/Plan (1) UTI due to extended-spectrum beta lactamase (ESBL) producing Escherichia coli: (2) Failure of outpatient treatment: (3) Acute urinary retention: (4) Hypoxia: PLAN: Plan Urine culture collected on 12/14/2023 was reviewed. Urine culture with ESBL E. coli. Patient has been started on Merrem at the emergency department and continued. Medina catheter placed at the emergency department. Chest x-ray with no acute pathology Discussed with ED physician and the consensus was to get CT chest. CT chest was without contrast. CT chest without any acute lung pathology Will get a VQ scan to rule out PE since patient is hypoxic. Of note the patient reported that about 2 weeks ago he had COVID but he improved. On as needed Lasix p.o. at home. 40 mg Lasix daily ordered. In regard to his hypertension, blood pressure is stable. Home blood pressure medications resumed. Trend blood pressures. DVT prophylaxis: Patient has been started on home Eliquis. VQ scan as above. Advance care planning: Discussed with patient and family advanced directives as well as CODE STATUS. Explained various CODE STATUS: FULL CODE, DNR CCA, DNR CCA with no intubation, and DNR CC- and what each meant. Patient elected to be a full code with CPR and intubation if warranted. Surrogate decision maker is patient's sister who is a pharmacist and works at the retail pharmacy of [facility] [employer]. Order was placed. Time spent on discussion 16 minutes. Time spent in the patient's overall evaluation,decision-making process, review of diagnostic data, adjustment of management, discussion with other providers, nursing and ancillary staff involved in patient's care documentation, 75 minutes.
[2023-12-26] MEDS: Furosemide 40 MG Tablet PO (18:53)
[2023-12-26] MEDS: 0.9% Normal Saline (250mL Bag) 250 ML 15 ML IV (21:49)
[2023-12-26] MEDS: Meropenem 500 MG in 0.9% Normal Saline (50mL MB+) 50 ML 100 MG IV (21:49)
[2023-12-26] MEDS: APIXABAN 5 MG TABLET PO (21:51)
[2023-12-26] MEDS: Carvedilol 25 MG Tablet PO (21:52)
[2023-12-26] MEDS: Pantoprazole Sodium 40 MG Tablet PO (21:52)
[2023-12-27] MEDS: Acetaminophen 325 MG Tablet 650 MG PO ×4 (01:14→22:49)
[2023-12-27 06:10] LABS: Absolute Lymphocyte Count 1.29 X10^3/uL (0.83-4.51); Absolute Neutrophil Count 7.6 X10^3/uL (2.0-7.7); Basophil# 0.01 X10^3/uL; Basophil% 0.1 % (0-1); Hematocrit 31.4 % (40-54); Hemoglobin 9.1 g/dL (13.0-16.5); Lymphocyte # 1.29 X10^3/ul (0.83-4.51); Lymphocyte % 13.2 % (19-41); Mean Corpuscular Hgb 30.7 pg (27.0-32.0); Mean Corpuscular Volume 106.1 fL (80-94); Mean Platelet Vol. 9.3 fl (6.2-12.0); Monocyte# 0.75 X10^3/uL; Monocyte% 7.7 % (0-10); NRBC Flagged by Analyzer 0 % (0-5); Neutrophil # 7.61 X10^3/uL (2.7-7.7); Neutrophil % 77.6 % (47-70); POSITIVE MORPHOLOGY YES; Platelet Count 214 K/mm3 (150-450); RBC Distribution Width CV 16.9 % (11.6-14.6); RBC Distribution Width SD 65.5 fl (35.1-43.9); Red Blood Count 2.96 M/mm3 (4.6-6.2); White Blood Count 9.8 K/mm3 (4.4-11.0)
[2023-12-27] MEDS: Levothyroxine 150 MCG Tablet PO (06:20)
[2023-12-27 06:29] LABS: Anion Gap 3 (5-15); BUN 59 mg/dL (7-18); BUN/Creat Ratio 28.5 RATIO (10-20); Calcium,Total 8.5 mg/dL (8.5-10.1); Chloride 103 mmol/L (98-107); Creatinine, Serum 2.07 mg/dL (0.70-1.30); EST Glomerular Filtration Rate 34 mL/min (>60); Est Glom Filt Rate - Afr Amer 41 mL/min (>60); Estimated Creatinine Clearance 42.51 ml/min; Glucose 99 mg/dL (74-106); Potassium 4.2 mmol/L (3.5-5.1); Sodium Level 136 mmol/L (136-145)
[2023-12-27 06:36] LABS: Differential Indicated SCAN CRITERIA MET
[2023-12-27 06:37] LABS: Differential Comment SCANNED
--- NOTE | 2023-12-27 07:09 | PCM.PN.HOSP ---
Reason for Visit Reason for Visit: Diagnoses Other Escherichia coli [E. coli] as the cause of diseases classified elsewhere (12/26/23) Urinary tract infection, site not specified (12/26/23) Hypoxemia (12/26/23) Other retention of urine (12/26/23) Extended spectrum beta lactamase (ESBL) resistance (12/26/23) Other specified health status (12/26/23) Subjective Subjective Patient is a 68-year-old gentleman who presented with dysuria and urinary retention. Urinalysis obtained in the ED came back consistent with UTI antibiotics initiated per protocol based on prior cultures and admitted to the regular nursing floor for further management Objective Data Objective Data Vital Signs: Vital Signs Temp Pulse Resp BP Pulse Ox O2 Del Method O2 Flow Rate 97.2 F L 61 16 117/68 93 Room Air 2 12/26/23 20:40 12/26/23 20:40 12/26/23 20:40 12/26/23 20:40 12/26/23 20:40 12/26/23 20:45 12/26/23 20:45 Oxygen Flow Rate (L/min) 2 Oxygen Delivery Method Room Air Weight: 93.015 kg Body Mass Index (BMI) 25.0 Intake & Output: Intake and Output for Last 24 Hours 12/25/23 12/26/23 12/27/23 23:59 23:59 23:59 Intake Total 370 / 370 60 / 60 Output Total 1100 / 1600 1300 / 1300 Balance -730 / -1230 -1240 / -1240 Lab / Micro Data 12/27/23 05:35 12/27/23 05:35 Labs: Laboratory Results - last 24 hr 12/26/23 11:00: WBC 13.6 H, RBC 3.10 L, Hgb 9.8 L, Hct 32.7 L, MCV 105.5 H, MCH 31.6, MCHC 30.0 L, RDW Std Deviation 65.1 H, RDW Coeff of Hugo 17.0 H, Plt Count 229, MPV 9.3, Immature Gran % (Auto) 0.500, Neut % (Auto) 84.7 H, Lymph % (Auto) 8.1 L, [place] % (Auto) 6.2, Eos % (Auto) 0.4, Baso % (Auto) 0.1, Absolute Neuts (auto) 11.5 H, Absolute Lymphs (auto) 1.11, Nucleated RBC % 0.1, Differential Comment SCANNED, Platelet Estimate ADEQUATE, Polychromasia 1+, Hypochromasia 1+, Anisocytosis 3+, Macrocytosis 2+, Target Cells RARE, Stomatocytes 1+, Sodium 138, Potassium 4.5, Chloride 105, Carbon Dioxide 29.0, Anion Gap 4 L, BUN 64 H, Creatinine 2.15 H, Estim Creat Clear Calc 40.93, Est GFR (MDRD) Af Amer 40 L, Est GFR (MDRD) Non-Af 33 L, BUN/Creatinine Ratio 29.8 H, Glucose 87, Calcium 8.0 L, Troponin I High Sens 30, B-Natriuretic Peptide 195.0 H, Urine Color Yellow, Urine Clarity Turbid, Urine pH 7.0, Ur Specific [place] 1.010, Urine Protein 100 H, Urine Glucose (UA) Normal, Urine Ketones Negative, Urine Occult Blood 250 H, Urine Nitrite Negative, Urine Bilirubin Negative, Urine Urobilinogen Normal, Ur Leukocyte Esterase 500 H, Urine RBC 50-100 SEEN, Urine WBC >100 SEEN, Ur Squamous Epith Cells 0 SEEN, Ur Transition Epith Cell 5-10 SEEN, Ur Renal Epithelial Cell 25-50 SEEN, Urine Bacteria 3+, Urine Mucus 0 SEEN 12/26/23 13:25: Lactic Acid 0.7 12/27/23 05:35: WBC 9.8, RBC 2.96 L, Hgb 9.1 L, Hct 31.4 L, MCV 106.1 H, MCH 30.7, MCHC 29.0 L, RDW Std Deviation 65.5 H, RDW Coeff of Hugo 16.9 H, Plt Count 214, MPV 9.3, Immature Gran % (Auto) 0.400, Neut % (Auto) 77.6 H, Lymph % (Auto) 13.2 L, [place] % (Auto) 7.7, Eos % (Auto) 1.0, Baso % (Auto) 0.1, Absolute Neuts (auto) 7.6, Absolute Lymphs (auto) 1.29, Nucleated RBC % 0, Differential Comment SCANNED, Sodium 136, Potassium 4.2, Chloride 103, Carbon Dioxide 30.0, Anion Gap 3 L, BUN 59 H, Creatinine 2.07 H, Estim Creat Clear Calc 42.51, Est GFR (MDRD) Af Amer 41 L, Est GFR (MDRD) Non-Af 34 L, BUN/Creatinine Ratio 28.5 H, Glucose 99, Calcium 8.5 Radiography Diagnostic Testing: Radiology Impression Chest X-Ray 12/26/23 11:20 IMPRESSION: Stable examination demonstrating no acute cardiopulmonary process. Electronically Signed: Charley Butler MD at 11:42 EDT , Chest CT 12/26/23 14:29 IMPRESSION: Emphysema. Pulmonary emphysema on CT is an independent risk factor for lung cancer. Recommend consideration for low dose CT (LD CT) lung cancer screening in the future. Atherosclerosis. Stable partially visualized enlarged lymph node medial to the caudate lobe. Electronically Signed: Charley Butler MD at 16:05 EDT , Rhythm Strip Rhythm Strip: Paced Rate: 60 Ectopy: None Physical Exam Narrative GENERAL: cooperative HEENT: Atraumatic; normocephalic EYES; Anicteric, Normal Conjunctiva NECK; supple, normal thyroid, RESPIRATORY: Diminished to auscultation CARDIOVASCULAR: Regular S1 S2, GI: soft, normoactive bowel sounds, : No Renal angle tenderness; Medina catheter in situ EXTREMITIES: No edema, no clubbing, MUSCULOSKELETAL: no muscle wasting NEURO: Awake; no lateralizing signs. SKIN: No Rash PSYCH; Flat affect Assessment & Plan Assessment/Plan (1) UTI due to extended-spectrum beta lactamase (ESBL) producing Escherichia coli: (2) Failure of outpatient treatment: (3) Acute urinary retention: (4) Hypoxia: PLAN: Plan Patient is a 68-year-old gentleman who presented with dysuria and urinary retention. Urinalysis obtained in the ED came back consistent with UTI antibiotics initiated per protocol based on prior cultures and admitted to the regular nursing floor for further management 1. Acute complicated UTI ? Patient has history of previous ESBL E. coli. Patient was started on meropenem admitted to regular nursing floor 2. BPH with lower urinary obstructive symptoms - Patient treated with tamsulosin 3. Hypothyroidism ? Patient is on levothyroxine home dose continued 4. GERD ? On PPI 5. Dyslipidemia ?Patient is on statin therapy, continued at home dose 6. Valvular heart disease ? With previous tricuspid valve repair, aortic valve replacement with bioprosthetic valve 7. Conduction system disorder ? Status post pacemaker placement 8. Paroxysmal atrial fibrillation ? Rate controlled on carvedilol is on systemic anticoagulation with apixaban 9. Hypertension ? Blood pressure controlled, home medications continued with dose adjustment as needed 10. Previous history of CVA ? Patient is on statin therapy as well as Eliquis given his underlying A-fib 11. Anemia ? Secondary to chronic disorder monitoring H&H and transfuse if patient becomes symptomatic or hemoglobin falls below 7 12. DVT prophylaxis ? Patient is on apixaban Time spent in the patient's overall evaluation,decision-making process, review of diagnostic data, adjustment of management, discussion with other providers, nursing nursing and ancillary staff involved in patient's care documentation, 52 minutes Charges/Coding Visit Charges Inpatient E&M: 09859 Subs Hosp L2
[2023-12-27 08:07] VITALS: BP 107/66; PULSE 61; RESP 18; TEMP 36.6; O2SAT 93
[2023-12-27] MEDS: Thiamine Hydrochloride 100 MG Tablet PO (08:13)
[2023-12-27] MEDS: 0.9% Saline Lock 10 ML Syringe IV ×2 (10:04→22:31)
[2023-12-27] MEDS: Meropenem 500 MG in 0.9% Normal Saline (50mL MB+) 50 ML 100 MG IV ×2 (10:04→22:32)
[2023-12-27] MEDS: Empagliflozin 25 MG Tablet PO (10:05)
[2023-12-27] MEDS: Cholecalciferol (VIT D3) 25 MCG TABLET (1,000 UNITS) 75 MCG PO (10:05)
[2023-12-27] MEDS: Pantoprazole Sodium 40 MG Tablet PO ×2 (10:06→22:33)
[2023-12-27] MEDS: APIXABAN 5 MG TABLET PO ×2 (10:06→22:33)
[2023-12-27] MEDS: Tamsulosin HCl 0.4 MG Capsule PO (10:07)
[2023-12-27] MEDS: Atorvastatin Calcium 20 MG Tablet PO (10:08)
[2023-12-27] MEDS: Cyanocobalamin 500 MCG Tablet PO (10:09)
[2023-12-27] MEDS: FLU VACCINE **HIGH DOSE** TV 24-25 180 MCG/0.5 ML SYRINGE IM (10:18)
[2023-12-27 12:20] VITALS: BP 97/58; PULSE 67; RESP 18; TEMP 36.6; O2SAT 96
[2023-12-27 17:34] VITALS: BP 96/53; PULSE 60; RESP 18; TEMP 36.5; O2SAT 96
[2023-12-27 22:57] VITALS: BP 114/74; PULSE 60; RESP 16; TEMP 36.7; O2SAT 94
[2023-12-28] VITALS (9 sets, daily range): BP systolic 100–111; BP diastolic 63–76; PULSE 59–70; RESP 14–20; TEMP 36.3–36.5; O2SAT 88–97
[2023-12-28] MEDS: Levothyroxine 150 MCG Tablet PO (04:58)
--- NOTE | 2023-12-28 07:40 | PCM.PN.HOSP ---
Reason for Visit Reason for Visit: Acute urinary retention and shortness of breath Subjective Subjective Mr. White is a 68-year-old white male who presented to the emergency department [facility] on 12/26/2023 with a chief complaint of acute urinary retention and shortness of breath that started early in the morning of presentation. He reported that he was here 2 weeks ago for urinary retention and needed a catheter. At that time he was diagnosed with infection and placed on antibiotics and followed up with his urologist Dr. Brannon. At that time he was placed on Flomax. Flomax was started about 4 days prior to presentation the antibiotics had been completed. He had been self cathing but was out of catheters for a week and all of a sudden was unable to urinate again. His urinary retention had resolved however he stated that on the day of presentation he felt like it was coming back on the day prior to presentation. He denied any dysuria or hematuria however. He had no back pain, fevers or chills. He also reported that he had shortness of breath. He reported that was worse with lying down and exerting himself but also was having some dyspnea at rest. He is on Eliquis at baseline for history of A-fib. He was diagnosed with COVID at the end of November and his CT showed fairly significant emphysematous changes. His BNP was elevated above his baseline. Patient has no significant complaints today. States his oxygen has been a problem since he had COVID couple weeks ago. He had required oxygen previously but had not been using recently. He states everything kind of fell apart when he developed COVID including his urinary retention. We discussed him being discharged with a Medina and he stated he was fine with that. He we will continue his Flomax and have him follow-up as an outpatient with Dr. Brannon next week as he is currently not in town. Objective Data Objective Data Vital Signs: Vital Signs Temp Pulse Resp BP Pulse Ox O2 Del Method O2 Flow Rate 97.4 F L 62 16 104/75 94 Nasal Cannula 3 12/28/23 05:00 12/28/23 05:00 12/28/23 05:00 12/28/23 05:00 12/28/23 05:00 12/28/23 05:07 12/28/23 05:00 Oxygen Flow Rate (L/min) 3 Oxygen Delivery Method Nasal Cannula Weight: 93.015 kg Body Mass Index (BMI) 25.0 Intake & Output: Intake and Output for Last 24 Hours 12/26/23 12/27/23 12/28/23 23:59 23:59 23:59 Intake Total 370 / 370 1302.50 / 1302.50 Output Total 1100 / 1600 3000 / 3000 725 / 725 Balance -730 / -1230 -1697.50 / -1697.50 -725 / -725 Lab / Micro Data 12/27/23 05:35 12/27/23 05:35 Rhythm Strip Rhythm Strip: Paced Rate: 60 Ectopy: None Physical Exam Const alert, oriented x3, no apparent distress and well nourished Constitutional Narrative: Apparently age white male sitting up in a chair, watching television, appears comfortable and nontoxic, appears older than stated age HEENT head/scalp atraumatic and moist oral mucous membranes HEENT Narrative: Mallampati 3, no thrush Head and Scalp: normocephalic Resp normal respiratory effort, no retractions, no use of accessory muscles and clear to auscultation bilaterally Resp Narrative: Diminished but clear Auscultation: Negative for rales, rhonchi or wheezes Cardio regular rate, regular rhythm, S1 normal heart sound, S2 normal heart sound, no rub, no gallops and no clicks; Negative for no murmurs Cardio Narrative: 3 out of 6 systolic murmur GI normal to inspection, nondistended, normoactive bowel sounds, soft to palpation and non-tender Extremity Extremity Narrative: Pedal pulses are 2+, mild clubbing noted in hands, no cyanosis, no edema Neuro oriented x3, moves all extremities and no focal motor deficits Speech: speech normal Psych affect normal Psych Narrative: Very pleasant, interacts appropriately Assessment & Plan Assessment/Plan (1) Failure of outpatient treatment: (2) UTI due to extended-spectrum beta lactamase (ESBL) producing Escherichia coli: (3) Hypoxemia: (4) Acute urinary retention: PLAN: Plan ESBL E. coli UTI -Was on p.o. antibiotics as an outpatient but outpatient treatment failure due to sensitivity issues -Continue meropenem for now -ID has evaluated the patient and is recommending discharge with IV or IM ertapenem versus p.o. fosfomycin -Family is requesting p.o. fosfomycin -Will verify with ID tomorrow length of treatment and dosing Urinary retention -Patient states he has had problems with this since he was diagnosed with COVID at the end of November -Continue Flomax -Will continue Medina at discharge and have patient follow-up with Dr. Brannon next week Acute hypoxemia -Patient stated he is intermittently required oxygen previously but has not been using oxygen prior to admission -Recently had COVID-19 infection -Highly suspect his hypoxia is related to recent COVID with history of COPD -Highly recommend cessation of tobacco abuse -Currently on 2 L nasal cannula -Will check ambulatory pulse ox in the a.m. prior to discharge -Lasix 40 mg IV daily and hold home oral Lasix for now Chronic anemia -Secondary to chronic renal disease -Counts are stable -No signs of acute bleeding -Continue to monitor CKD stage IV -Baseline seems to fluctuate between 2 and 3 -Currently 2.07 -Hold home Lasix -Start IV Lasix 40 mg daily -Monitor renal function closely with IV Lasix Bioprosthetic aortic valve -Status post aortic valve replacement 2018 at [facility] along with aortic root debridement History of tricuspid valve insufficiency -Previous bicuspid valve repair in 2018 -Most recent echo stable History of aortic valve endocarditis -Patient has pacemaker due to arrhythmia -Recent interrogation -Continue outpatient follow-up Hyperlipidemia -Continue home atorvastatin Paroxysmal atrial fibrillation -Continue home Eliquis -Continue home carvedilol History of stroke -No major residual deficits -Continue home risk factor modification Hypothyroidism -Continue home levothyroxine History of GI bleed/GERD -Continue home Protonix 40 twice daily Essential hypertension -Continue home carvedilol -Continue home amlodipine DVT prophylaxis Can continue full anticoagulation with Eliquis CODE STATUS -Full code as verified on admission Disposition: -Anticipate discharge tomorrow with Medina in place on oral fosfomycin if ID agrees Charges/Coding Visit Charges Inpatient E&M: 72985 Subs Hosp L2
[2023-12-28] MEDS: Tamsulosin HCl 0.4 MG Capsule PO (08:55)
[2023-12-28] MEDS: Cyanocobalamin 500 MCG Tablet PO (08:56)
[2023-12-28] MEDS: Pantoprazole Sodium 40 MG Tablet PO ×2 (08:56→21:20)
[2023-12-28] MEDS: Atorvastatin Calcium 20 MG Tablet PO (08:56)
[2023-12-28] MEDS: Thiamine Hydrochloride 100 MG Tablet PO (08:56)
[2023-12-28] MEDS: Empagliflozin 25 MG Tablet PO (08:56)
[2023-12-28] MEDS: Cholecalciferol (VIT D3) 25 MCG TABLET (1,000 UNITS) 75 MCG PO (08:56)
[2023-12-28] MEDS: APIXABAN 5 MG TABLET PO ×2 (08:56→21:19)
[2023-12-28] MEDS: predniSONE 20 MG Tablet 40 MG PO (08:59)
[2023-12-28] MEDS: Meropenem 500 MG in 0.9% Normal Saline (50mL MB+) 50 ML 100 MG IV ×2 (10:01→21:18)
[2023-12-28] MEDS: Furosemide 40 MG/4 ML Vial IV (10:01)
[2023-12-28] MEDS: 0.9% Saline Lock 10 ML Syringe IV ×3 (10:02→21:20)
[2023-12-28] MEDS: Ipratropium/Albuterol Sulfate 3 ML AMPUL.NEB INHALATION ×3 (11:16→19:45)
[2023-12-28] MEDS: Senna/Docusate Sodium 1 Tablet 2 TABLET PO ×2 (12:01→21:33)
--- NOTE | 2023-12-28 12:07 | CASEMGMT ---
JORGE SALAMANCA Assessment: Face to Face with pt for initial transition planning/care coordination assessment. JORGE SALAMANCA introduced self and role at [facility], pt voices understanding and consents to assessment. Pt is A&O x4 and answers all questions appropriately at this time. Pt sitting up in chair in no distress. Sister sitting at bedside, pt agreeable to answering questions with sister present. Care providers, pharmacy, and demographics verified/updated. Strata: 3 Admitting Dx: UTI PCP: Alisa Specialists: Andry, Dry Food Products Mixer; James, Wire Preparation Worker; Robb Vargas, Urologist Preferred Pharmacy: [facility] Insurance: [facility], [facility] Prescription Benefit: yes LNOK: Clifford, Sister Living Arrangements: Pt lives alone in a 1 story home with zero steps to enter. ADLs: Pt states I at home with ADLs and IADLs. Transportation: Pt sister provides transportation. DME: Pt denies HHC/SNF: Previously used [facility] HHC services. Pt states previously had catheter herring in at home and is comfortable going home with herring. Pt states would prefer to go to OP for IV antibiotics if able to. JORGE SALAMANCA discussed HHC option with pt if needs IV antibiotics, pt and sister state they would discuss a plan if needed IV antibiotics at home. JORGE SALAMANCA also discussed SNF, pt open to TCU if able to go there for a short period of time. Discussed O2 needs with pt. Pt states was not on O2 at home, previously used [facility] for Oxygen needs and would like to use them again. Denies wanting list of local DME providers. Pt states no further concerns/needs at this time. CM to follow. Advised pt to ask CM if any further question/concerns/needs arise, voices understanding. Pt Goal: TBD Plan: TBD, follow ID and home O2 needs. Ty PATEL CM
--- NOTE | 2023-12-28 13:49 | CON.PCM.ID_ITS ---
Assessment & Plan Assessment/Plan (1) UTI due to extended-spectrum beta lactamase (ESBL) producing Escherichia coli: PLAN: Macrobid likely not effective given GFR. Cont meropenem. Options at discharge would be once daily IV or IM ertapenem or po fosfomycin. Will follow, thank you (2) Acute urinary retention: HPI Consult Data Date of Consult: 12/28/23 HPI Narrative Reason for Consultation: uti HPI Narrative: DAKOTA RIVERA, is a 68 M with h/o stroke, pacemaker placement, presented with 2 weeks urinary retention and associated dysuria, incomplete emptying. No fever, no abd pain, no back pain. Went to urgent care, given macrobid, then came to ED here, ucx sent, showed ESBL and macrobid was restarted. Had ongoing symptoms, admitted here. On meropenem feeling a little better. Full ROS performed and neg except as noted above. [facility] Medical History Infected sebaceous cyst of skin EPO-resistant anemia Hepatomegaly Edema Dyspnea Chronic kidney disease (CKD) stage G3b/A1, moderately decreased glomerular filtration rate (GFR) between 30-44 mL/min/1.73 square meter and albuminuria creatinine ratio less than 30 mg/g CKD (chronic kidney disease) stage 3, GFR 30-59 ml/min Hyperthyroidism ICD (implantable cardioverter-defibrillator) in place Pacemaker TIA (transient ischemic attack) Anemia Abscess of left buttock Wears dentures Open wound Thyroid disease Anemia High cholesterol History of GI bleed History of ulceration Smoker Leg cramps History of echocardiogram Cardiology follow-up encounter Edema of left lower extremity Acute bronchitis, unspecified Stroke Acute stomach ulcer Kidney disease HTN (hypertension) PAF (paroxysmal atrial fibrillation) Mild atherosclerosis of both carotid arteries History of stroke Presence of biventricular cardiac pacemaker Vitamin deficiency Ulcer Kidney failure Carpal tunnel syndrome Nonrheumatic tricuspid valve regurgitation Aortic valve endocarditis (~12/2017) Acute CVA (cerebrovascular accident) (10/27/17) 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 ligation 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 of 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 Atrial fibrillation Sinus bradycardia Presence of permanent cardiac pacemaker (~01/19/18) Mitral valve insufficiency and aortic valve insufficiency Sick sinus syndrome SOB (shortness of breath) Anemia, iron deficiency Hypothyroidism Tobacco abuse Aortic stenosis Atherosclerotic heart disease of [place] coronary artery without angina pectoris Atrioventricular block, type I Premature ventricular contraction Abnormal EKG Hyperlipidemia Ventricular hypertrophy Bruit of left carotid artery Retinal embolus Home Medications ?Medication ?Instructions ?Recorded ?Last Taken ?Type cyanocobalamin (vitamin B-12) 500 500 mcg PO QDAY SUPPLEMENT 03/27/17 12/25/23 History mcg tablet acetaminophen 500 mg tablet 1,000 mg PO Q4H PRN Pain 10/27/17 03/30/23 History pantoprazole 20 mg tablet,delayed 40 mg PO BID reflux 03/15/18 03/31/23 History release dapagliflozin propanediol 10 mg 10 mg PO DAILY diabetes 11/25/22 12/26/23 History tablet (Farxiga) atorvastatin 20 mg tablet 20 mg PO DAILY cholesterol #90 tabs 02/06/23 12/25/23 Rx amlodipine 5 mg tablet 5 mg PO DAILY blood pressure #90 02/23/23 12/26/23 Rx tabs apixaban 5 mg tablet (Eliquis) 5 mg PO BID blood thinner #180 tabs 03/10/23 12/26/23 Rx levothyroxine 150 mcg tablet 150 mcg PO DAILY thyroid 03/31/23 03/31/23 History furosemide 40 mg tablet 40 mg PO DAILY REDUCE FLUIDS 04/14/23 Unknown History furosemide 40 mg tablet 20 mg PO DAILY PRN FOR FLUID 06/17/23 Unknown History RETENTION cholecalciferol (vitamin D3) 75 75 mcg PO DAILY SUPPLEMENT 07/09/23 12/25/23 History mcg (3,000 unit) tablet thiamine HCl (vitamin B1) 100 mg 100 mg PO DAILY 07/09/23 Unknown History tablet carvedilol 25 mg tablet 25 mg PO BID blood pressure #180 08/03/23 12/26/23 Rx tabs tamsulosin 0.4 mg capsule 0.4 mg PO DAILY HELP WITH URINE 12/26/23 12/25/23 History FLOW Allergy/AdvReac Type Severity Reaction Status Date / Time Penicillins AdvReac Severe Hives Verified 12/26/23 10:26 sulfamethoxazole (From AdvReac Intermediate Other Verified 12/26/23 10:26 Bactrim) trimethoprim (From Bactrim) AdvReac Intermediate Other Verified 12/26/23 10:26 Family History Father CAD (coronary artery disease) Mother CAD (coronary artery disease) Thyroid disorder Sister Thyroid cancer Grandmother Diabetes Grandfather Alcoholism Surgical History History of cardiac catheterization History of heart surgery (~2018) History of tricuspid valve repair (~01/19/18) History of aortic valve replacement with bioprosthetic valve (~01/19/18) S/P aortic valve replacement History of carpal tunnel surgery History of knee surgery History of gastric bypass Social History Smoking Status: Current some day smoker tobacco type: cigars per week: 21 alcohol intake: current alcohol intake frequency: holidays/special occasions only substance use type: does not use caffeine: Yes Type: coffee what type of physical activity do you participate in: none seatbelt use: always do you feel safe at home: Yes Physical Exam Const alert, oriented x3 and no apparent distress General Appearance: cooperative HEENT normocephalic and head/scalp atraumatic Eyes PERRL and EOMs intact bilaterally Neck supple and No nodes Resp normal air movement and clear to auscultation bilaterally Cardio regular rate and regular rhythm GI soft to palpation, non-tender and non-distended Extremity General Extremity: Negative for edema Skin no rashes or lesions noted Neuro CN's II-XII intact bilaterally Lab / Micro Data Attestation: I reviewed the patient's lab results. 12/27/23 05:35 12/27/23 05:35 Rhythm Strip Rhythm Strip: Paced Rate: 60 Ectopy: None
--- NOTE | 2023-12-28 16:03 | CASEMGMT ---
JORGE CM into pt room, pt sitting up in chair. Pt sister Clifford present in room. Discussed ID possibilities upon dc. Clifford who is a pharmacist states she could do an IM injection. Pt states his first preference would be oral medication. Clifford states that [facility] has this medication, second choice would be IM and third IV at the outpt infusion. Pt states all options are able to be done. JORGE SALAMANCA to follow tomorrow with ID. Spoke with hospitalist who is aware of this as well. Pt does not want HHC but gave that as an option as well.
[2023-12-28] MEDS: Acetaminophen 325 MG Tablet 650 MG PO (21:22)
[2023-12-29] VITALS (8 sets, daily range): BP systolic 105–119; BP diastolic 61–74; PULSE 61–87; RESP 16–20; TEMP 36.7–36.8; O2SAT 86–96
[2023-12-29] MEDS: Levothyroxine 150 MCG Tablet PO (05:03)
[2023-12-29 07:00] LABS: Hematocrit 27.5 % (40-54); Hemoglobin 8.1 g/dL (13.0-16.5); Mean Corp Hgb Conc 29.5 g/dL (32-36); Mean Corpuscular Hgb 31.2 pg (27.0-32.0); Mean Corpuscular Volume 105.8 fL (80-94); Mean Platelet Vol. 9.1 fl (6.2-12.0); Platelet Count 174 K/mm3 (150-450); RBC Distribution Width CV 16.5 % (11.6-14.6); RBC Distribution Width SD 64.6 fl (35.1-43.9); White Blood Count 4.9 K/mm3 (4.4-11.0)
[2023-12-29] MEDS: Ipratropium/Albuterol Sulfate 3 ML AMPUL.NEB INHALATION ×3 (07:25→15:20)
[2023-12-29 07:48] LABS: Anion Gap 8 (5-15); BUN 57 mg/dL (7-18); BUN/Creat Ratio 29.7 RATIO (10-20); Calcium,Total 8.2 mg/dL (8.5-10.1); Chloride 106 mmol/L (98-107); Creatinine, Serum 1.92 mg/dL (0.70-1.30); EST Glomerular Filtration Rate 37 mL/min (>60); Est Glom Filt Rate - Afr Amer 45 mL/min (>60); Estimated Creatinine Clearance 45.84 ml/min; Glucose 111 mg/dL (74-106); Potassium 4.1 mmol/L (3.5-5.1); Sodium Level 139 mmol/L (136-145)
[2023-12-29] MEDS: Cholecalciferol (VIT D3) 25 MCG TABLET (1,000 UNITS) 75 MCG PO (08:32)
[2023-12-29] MEDS: predniSONE 20 MG Tablet 40 MG PO (08:32)
[2023-12-29] MEDS: Thiamine Hydrochloride 100 MG Tablet PO (08:32)
[2023-12-29] MEDS: Furosemide 40 MG/4 ML Vial IV (10:03)
[2023-12-29] MEDS: Meropenem 500 MG in 0.9% Normal Saline (50mL MB+) 50 ML 100 MG IV (10:03)
[2023-12-29] MEDS: APIXABAN 5 MG TABLET PO (10:03)
[2023-12-29] MEDS: Empagliflozin 25 MG Tablet PO (10:04)
[2023-12-29] MEDS: Tamsulosin HCl 0.4 MG Capsule PO (10:04)
[2023-12-29] MEDS: Pantoprazole Sodium 40 MG Tablet PO (10:04)
[2023-12-29] MEDS: Atorvastatin Calcium 20 MG Tablet PO (10:04)
[2023-12-29] MEDS: Cyanocobalamin 500 MCG Tablet PO (10:05)
--- NOTE | 2023-12-29 10:29 | PCM.PN.ID ---
Physical Exam Narrative Feeling better, no fever, no abd pain Const alert and no apparent distress General Appearance: cooperative Resp normal air movement and clear to auscultation bilaterally Cardio regular rate and regular rhythm GI soft to palpation, non-tender and non-distended Skin no rashes or lesions noted ID ID: Route of nutrition/ use of supplements: [] Nutritional Intake: [] IV Site: [] [place] Catheter: [] Assessment & Plan Assessment/Plan (1) UTI due to extended-spectrum beta lactamase (ESBL) producing Escherichia coli: PLAN: Macrobid likely not effective given GFR. On meropenem. Ok for d/c home with 2 doses po fosfomycin. Will follow, d/w Dr. Palmer (2) Acute urinary retention:
--- NOTE | 2023-12-29 14:37 | PCM.DC.SUM ---
Providers Date of Admission: 12/26/23 Date of Discharge: 12/29/23 Primary Care Physician: Dr. Tapan Cuellar, Consultations 12/28/23 07:39 Consult: Infectious Disease Routine Consulting Provider: Vasyl Aguilar Reason for Consult: ESBL UTI EMERGENT Consult: No MD Notified: Yes Date Notified: 12/28/23 Time Notified: 07:40 Method of Notification: Text Reason For Visit: UTI Diagnosis Discharge Diagnosis (1) UTI due to extended-spectrum beta lactamase (ESBL) producing Escherichia coli: Status: Acute Code(s): N39.0 - Urinary tract infection, site not specified; B96.29 - Other Escherichia coli [E. coli] as the cause of diseases classified elsewhere; Z16.12 - Extended spectrum beta lactamase (ESBL) resistance (2) Acute urinary retention: Status: Acute Code(s): R33.8 - Other retention of urine Medications at Discharge Home Medications cyanocobalamin (vitamin B-12) 500 mcg tablet 500 mcg PO QDAY SUPPLEMENT 03/27/17 acetaminophen 500 mg tablet 1,000 mg PO Q4H PRN Pain 10/27/17 pantoprazole 20 mg tablet,delayed release 40 mg PO BID reflux 03/15/18 dapagliflozin propanediol 10 mg tablet (Farxiga) 10 mg PO DAILY diabetes 11/25/22 atorvastatin 20 mg tablet 20 mg PO DAILY cholesterol #90 tabs 02/06/23 amlodipine 5 mg tablet 5 mg PO DAILY blood pressure #90 tabs 02/23/23 apixaban 5 mg tablet (Eliquis) 5 mg PO BID blood thinner #180 tabs 03/10/23 levothyroxine 150 mcg tablet 150 mcg PO DAILY thyroid 03/31/23 furosemide 40 mg tablet 40 mg PO DAILY REDUCE FLUIDS 04/14/23 furosemide 40 mg tablet 20 mg PO DAILY PRN FOR FLUID RETENTION 06/17/23 cholecalciferol (vitamin D3) 75 mcg (3,000 unit) tablet 75 mcg PO DAILY SUPPLEMENT 07/09/23 thiamine HCl (vitamin B1) 100 mg tablet 100 mg PO DAILY 07/09/23 carvedilol 25 mg tablet 25 mg PO BID blood pressure #180 tabs 08/03/23 tamsulosin 0.4 mg capsule 0.4 mg PO DAILY HELP WITH URINE FLOW 12/26/23 fosfomycin tromethamine 3 gram oral packet 1 packet PO Q3D 3 doses #3 ea 12/29/23 Hospital Course Procedures EKG and - (Chest x-ray/CT chest) Summary of Care Provided Minutes Spent on Discharge: 41 Hospital Course: Mr. White is a 68-year-old white male who presented to the emergency department [facility] on 12/26/2023 with a chief complaint of acute urinary retention and shortness of breath that started early in the morning of presentation. He reported that he was here 2 weeks ago for urinary retention and needed a catheter. At that time he was diagnosed with infection and placed on antibiotics and followed up with his urologist Dr. Brannon. At that time he was placed on Flomax. Flomax was started about 4 days prior to presentation the antibiotics had been completed. He had been self cathing but was out of catheters for a week and all of a sudden was unable to urinate again. His urinary retention had resolved however he stated that on the day of presentation he felt like it was coming back on the day prior to presentation. He denied any dysuria or hematuria however. He had no back pain, fevers or chills. He also reported that he had shortness of breath. He reported that was worse with lying down and exerting himself but also was having some dyspnea at rest. He is on Eliquis at baseline for history of A-fib. He was diagnosed with COVID at the end of November and his CT showed fairly significant emphysematous changes. His BNP was elevated above his baseline. Urine culture did show an ESBL producing E. coli. Given this fact infectious disease was consulted. He was placed on meropenem which appeared to be sensitive at the time of admission. Infectious ease evaluated the patient and recommended continuing 3 more doses of fosfomycin at the time of discharge due to complicated UTI. Given his ongoing issues with urinary retention, we will maintain his [place] and have him continue the Flomax. He will see Dr. Brannon next week in the office. Patient is to call the office tomorrow. He did have ongoing shortness of breath which he felt was likely related to his recent COVID-19 diagnosis. He states that since that point in time he has had issues with his oxygen levels and feeling shortness of breath. He does have baseline he does have a history of tobacco abuse. He does have a history of tobacco abuse and may have some baseline COPD. We have set up a pulmonary medicine appointment for him to be seen in April of this year. He will likely need PFTs and an ambulatory pulse ox at that time. At the time of discharge we did an ambulatory pulse ox and he required 1 L of oxygen at rest and 2 L with exertion. Given these findings the patient qualifies for home equipment and portability and the patient is mobile in the home and in the community. We also will have him continue his home Lasix at the 40 mg dosing as he had previously been on. His renal function actually improved with ongoing IV diuretics during his hospitalization to the point where it was 1.92 at the time of discharge. I have advised him to follow-up with his primary care physician in the next 1 to 2 weeks and he will need to outline a repeat BMP in the next 7 to 10 days to recheck his renal function and electrolytes. He was discharged home in stable condition on oxygen and prescription was sent to the pharmacy at the hospital for the fosfomycin prior to discharge in stable condition on 12/29/2023. Discharge diagnoses: Complicated ESBL E. coli UTI Urinary retention Elevated BNP Acute hypoxemia-suspect multifactorial Chronic anemia CKD stage IV Bioprosthetic aortic valve History of tricuspid valve insufficiency History of aortic valve endocarditis Hyperlipidemia Paroxysmal atrial fibrillation History of stroke Hypothyroidism History of GI bleed GERD Essential hypertension History of tobacco abuse Recent COVID-19 infection Physical Exam Const alert, oriented x3, no apparent distress, average body habitus, no limitations and well nourished; Negative for healthy appearing Constitutional Narrative: Apparently age white male sitting up in a chair, watching television, appears comfortable and nontoxic, appears older than stated age General Appearance: cooperative, comfortable, well kempt and well developed Orientation / Consciousness: awake, oriented to person, oriented to place and oriented to time Exam Limitations: no limitations HEENT normocephalic, head/scalp atraumatic and moist oral mucous membranes; Negative for hearing grossly normal bilaterally HEENT Narrative: Dentures in place, Mallampati 2, no thrush, moderate hearing loss Eyes PERRL and EOMs intact bilaterally; Negative for conjunctivae normal Eyes Narrative: Mild conjunctiva pallor bilaterally Neck no lymphadenopathy and supple Neck Narrative: Trachea midline, no thyroid enlargement Resp normal respiratory effort, no retractions, no use of accessory muscles and clear to auscultation bilaterally Resp Narrative: Diminished but clear Auscultation: Negative for rales, rhonchi or wheezes Cardio regular rate, regular rhythm, S1 normal heart sound, S2 normal heart sound, no rub, no gallops and no clicks; Negative for no murmurs Cardio Narrative: 3 out of 6 systolic murmur GI normal to inspection, nondistended, normoactive bowel sounds, soft to palpation and non-tender Extremity Extremity Narrative: Pedal pulses are 2+, mild clubbing noted in hands, no cyanosis, no edema Skin no wounds, skin turgor normal and no jaundice Skin Narrative: Skin is pale Neuro oriented x3, moves all extremities and no focal motor deficits Speech: speech normal Psych affect normal Psych Narrative: Very pleasant, interacts appropriately Weight / BMI Weight Weight: 93.015 kg Body Mass Index (BMI) 25.0 ABG / Lab / Microbiology Data 12/29/23 06:48 12/29/23 06:48 Laboratory: Laboratory Results - last 24 hr 12/29/23 06:48: WBC 4.9, RBC 2.60 L, Hgb 8.1 L, Hct 27.5 L, MCV 105.8 H, MCH 31.2, MCHC 29.5 L, RDW Std Deviation 64.6 H, RDW Coeff of Hugo 16.5 H, Plt Count 174, MPV 9.1, Sodium 139, Potassium 4.1, Chloride 106, Carbon Dioxide 25.0, Anion Gap 8, BUN 57 H, Creatinine 1.92 H, Estim Creat Clear Calc 45.84, Est GFR (MDRD) Af Amer 45 L, Est GFR (MDRD) Non-Af 37 L, BUN/Creatinine Ratio 29.7 H, Glucose 111 H, Calcium 8.2 L D/C Instructions Discharge Diet: Low fat / Low cholesterol Discharge Activity: Return to Normal Activity (With oxygen as noted) Meaningful Use Info Meaningful Use Meaningful Use Diagnoses (Choose all that apply): None applicable Ischemic Stroke Statin Dosing Therapy Reference: STATIN DOSE THERAPY REFERENCE: * Patients > 75 years receive moderate or high dose statin therapy. * Patients 75 years or YOUNGER should receive HIGH intensity statin dose unless contraindicated. You will be required to document reason for non-treatment if statin daily dose does not meet guidelines. HIGH DOSE STATIN THERAPY DAILY Atorvastatin > than or = to 40 mg Rosuvastatin > than or = to 20 mg Amlodipine + Atorvastatin > than or = to 2.5/40 mg Ezetimibe + Simvastatin 10/80 mg Simvastatin 80mg Discharge Plan Admission Admit Date/Time: 12/26/23 14:03 Primary Reason for Your Visit: Acute urinary retention/shortness of breath Attending Provider: Samantha Palmer Primary Care Provider: Tapan Cuellar Consulting Providers: Tobias Gomez; Amado Hinojosa; Vasyl Aguilar Instructions Additional Instructions / Restrictions: 1. Please call Dr. Brannon's office tomorrow and schedule an appointment to be seen next week 2. Please use oxygen 1 L at all times at rest and 2 L with exertion until you can follow-up with a physician and they instruct you to discontinue use of oxygen 3. Please follow-up with pulmonary medicine as noted below 4. We are going to restart your home Lasix at 40 mg daily. Continue this and please call your primary care office and asked that a basic metabolic profile be done in the next 7 to 10 days to recheck your electrolytes and your kidney function Discharge Orders/Prescriptions Prescriptions: New fosfomycin tromethamine 3 gram packet 1 packet PO Q3D Qty: 3 0RF Rx Instructions: start this on 12/30/2023 Continued pantoprazole 20 mg tablet,delayed release (/EC) 40 mg PO BID dapagliflozin propanediol [Farxiga] 10 mg tablet 10 mg PO DAILY cholecalciferol (vitamin D3) 75 mcg (3,000 unit) tablet 75 mcg PO DAILY thiamine HCl (vitamin B1) 100 mg tablet 100 mg PO DAILY acetaminophen 500 MG tablet 1,000 mg PO Q4H PRN (Reason: Pain) levothyroxine 150 mcg tablet 150 mcg PO DAILY furosemide 40 mg tablet 40 mg PO DAILY tamsulosin 0.4 mg capsule 0.4 mg PO DAILY cyanocobalamin (vitamin B-12) 500 mcg tablet 500 mcg PO QDAY atorvastatin 20 mg tablet 20 mg PO DAILY Qty: 90 3RF amlodipine 5 mg tablet 5 mg PO DAILY Qty: 90 3RF Eliquis 5 mg tablet 5 mg PO BID Qty: 180 4RF carvedilol 25 mg tablet 25 mg PO BID Qty: 180 4RF Held furosemide 40 mg tablet 20 mg PO DAILY PRN Hold Instructions: Please take 40 mg daily dose for now Patient Comments: PT TAKES PRN Referrals / Follow Up: Jonel Hernandez DO [Med Staff - Active Staff] - 05/03/24 11:15 am Binu Brannon MD [Med Staff - Active Staff] - See Referral Note (Call and schedule appointment to be seen next week for urinary retention) Tapan Cuellar DO [Primary Care Provider] - Within 2 Weeks Disposition Disposition (needs filled in before D/C Order can be placed): Home, Self Care Charges/Coding Visit Charges Inpatient E&M: 17861 Disch Hosp >30min
--- NOTE | 2023-12-29 14:53 | CASEMGMT ---
Addendum entered by Mi Rogers 12/29/23 15:19: JORGE SALAMANCA into pt room, pt is ready for dc. Provided pt with a portable oxygen tank. Pt aware to call [facility] once home. Pt comfortable with catheter. Pt denies any homegoing needs. Addendum entered by Mi Rogers 12/29/23 15:14: TC to [facility], pharmacist has taken care of cost of medication. Original Note: Pt qualifies for home oxygen. Referral sent to [facility] via [facility] at this time.
--- NOTE | 2023-12-29 16:29 | PHA.DC.MR.R ---
Pharmacy [place] Med Reconciliation Pharmacy Service has performed discharge medication reconciliation for this patient. Medication education papers prepared, pt's sister is [facility] pharmacist, already counseled by her. Medications reviewed. The patient's discharge medication list was reviewed for discrepancies and discrepancies were resolved. Medications at Discharge Home Medications cyanocobalamin (vitamin B-12) 500 mcg tablet 500 mcg PO QDAY SUPPLEMENT 03/27/17 acetaminophen 500 mg tablet 1,000 mg PO Q4H PRN Pain 10/27/17 pantoprazole 20 mg tablet,delayed release 40 mg PO BID reflux 03/15/18 dapagliflozin propanediol 10 mg tablet (Farxiga) 10 mg PO DAILY diabetes 11/25/22 atorvastatin 20 mg tablet 20 mg PO DAILY cholesterol #90 tabs 02/06/23 amlodipine 5 mg tablet 5 mg PO DAILY blood pressure #90 tabs 02/23/23 apixaban 5 mg tablet (Eliquis) 5 mg PO BID blood thinner #180 tabs 03/10/23 levothyroxine 150 mcg tablet 150 mcg PO DAILY thyroid 03/31/23 furosemide 40 mg tablet 40 mg PO DAILY REDUCE FLUIDS 04/14/23 furosemide 40 mg tablet 20 mg PO DAILY PRN FOR FLUID RETENTION 06/17/23 cholecalciferol (vitamin D3) 75 mcg (3,000 unit) tablet 75 mcg PO DAILY SUPPLEMENT 07/09/23 thiamine HCl (vitamin B1) 100 mg tablet 100 mg PO DAILY 07/09/23 carvedilol 25 mg tablet 25 mg PO BID blood pressure #180 tabs 08/03/23 tamsulosin 0.4 mg capsule 0.4 mg PO DAILY HELP WITH URINE FLOW 12/26/23 fosfomycin tromethamine 3 gram oral packet 1 packet PO Q3D 3 doses #3 ea 12/29/23
== END 2023-12-29 16:32 | disposition home or self-care (01) | DRG 690 ==
LOC: ED 14:15 → MS3 15:16
PROVIDERS: Admitting Provider Hospitalist; Emergency Provider Emergency Medicine; PCP Family Medicine; Visit Provider Internal Medicine
DX: N39.0 Urinary tract infection, site not specified (principal); N18.4 Chronic kidney disease, stage 4 (severe); Z16.12 Extended spectrum beta lactamase (ESBL) resistance; D63.1 Anemia in chronic kidney disease; I12.9 Hypertensive chronic kidney disease with stage 1 through stage 4 chronic kidney disease, or unspecified chronic kidney disease; E03.9 Hypothyroidism, unspecified; Z95.3 Presence of xenogenic heart valve; I48.0 Paroxysmal atrial fibrillation; I25.10 Atherosclerotic heart disease of native coronary artery without angina pectoris; E78.00 Pure hypercholesterolemia, unspecified; K21.9 Gastro-esophageal reflux disease without esophagitis; I45.9 Conduction disorder, unspecified; F17.290 Nicotine dependence, other tobacco product, uncomplicated; B96.20 Unspecified Escherichia coli [E. coli] as the cause of diseases classified elsewhere; R09.02 Hypoxemia; R33.9 Retention of urine, unspecified; Z95.0 Presence of cardiac pacemaker; Z79.01 Long term (current) use of 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s; Z86.73 Personal history of transient ischemic attack (TIA), and cerebral infarction without residual deficits; N40.1 Benign prostatic hyperplasia with lower urinary tract symptoms; N13.8 Other obstructive and reflux uropathy; Z23 Encounter for immunization; Z79.899 Other long term (current) drug therapy
CPT/HCPCS: 36415; 51702; 71046; 71250; 80048; 81001; 83605; 83880; 84484; 85025; 85027; 90662; 93005; 94640; 99285; 99406; J2185; J7040; J7050; A4216; J1940

== ENCOUNTER → 2024-01-06 | Outpatient (CLI) | payer MEDICARE, OTHER, SELFPAY ==
[2024-01-06 12:23] LABS: Absolute Neutrophil Count 2.7 X10^3/uL (2.0-7.7); Basophil# 0.02 X10^3/uL; Basophil% 0.5 % (0-1); Eosinophils% 2.4 % (0-5); Hematocrit 28.1 % (40-54); Hemoglobin 7.9 g/dL (13.0-16.5); Lymphocyte % 21.5 % (19-41); Mean Corp Hgb Conc 28.1 g/dL (32-36); Mean Corpuscular Hgb 30.9 pg (27.0-32.0); Mean Corpuscular Volume 109.8 fL (80-94); Mean Platelet Vol. 10.1 fl (6.2-12.0); Monocyte# 0.43 X10^3/uL; Monocyte% 10.3 % (0-10); NRBC Flagged by Analyzer 0 % (0-5); Neutrophil # 2.72 X10^3/uL (2.7-7.7); Neutrophil % 65.1 % (47-70); POSITIVE MORPHOLOGY YES; Platelet Count 123 K/mm3 (150-450); RBC Distribution Width CV 17.1 % (11.6-14.6); RBC Distribution Width SD 68.9 fl (35.1-43.9); Red Blood Count 2.56 M/mm3 (4.6-6.2); White Blood Count 4.2 K/mm3 (4.4-11.0)
[2024-01-06 12:24] LABS: Differential Indicated SCAN CRITERIA MET
[2024-01-06 12:49] LABS: Acanthocytes RARE; Anisocytosis 3+; Differential Comment SCANNED; Macrocytosis 2+; Platelet Estimate SLT DEC (ADEQ); Polychromasia 1+; Schistocytes 1+
[2024-01-06 13:24] LABS: Anion Gap 5 (5-15); BUN 60 mg/dL (7-18); BUN/Creat Ratio 25.2 RATIO (10-20); Calcium,Total 8.6 mg/dL (8.5-10.1); Chloride 108 mmol/L (98-107); Creatinine, Serum 2.38 mg/dL (0.70-1.30); EST Glomerular Filtration Rate 29 mL/min (>60); Est Glom Filt Rate - Afr Amer 35 mL/min (>60); Ferritin 63 ng/mL (26-388); Glucose 87 mg/dL (74-106); Iron 104 ug/dL (65-175); Potassium 6.1 mmol/L (3.5-5.1); Sodium Level 139 mmol/L (136-145)
== END | disposition home or self-care (01) ==
PROVIDERS: PCP Family Medicine; Referring Provider Family Medicine; Visit Provider Family Medicine
DX: D64.9 Anemia, unspecified (principal); N18.32 Chronic kidney disease, stage 3b
CPT/HCPCS: 36415; 80048; 82728; 83540; 85025

== ENCOUNTER → 2024-01-12 | Outpatient (CLI) | payer MEDICARE, OTHER, SELFPAY ==
[2024-01-12 17:52] LABS: Anion Gap 5 (5-15); BUN 66 mg/dL (7-18); BUN/Creat Ratio 32.8 RATIO (10-20); Calcium,Total 8.4 mg/dL (8.5-10.1); Chloride 115 mmol/L (98-107); Creatinine, Serum 2.01 mg/dL (0.70-1.30); EST Glomerular Filtration Rate 35 mL/min (>60); Est Glom Filt Rate - Afr Amer 43 mL/min (>60); Glucose 111 mg/dL (74-106); Iron 33 ug/dL (65-175); Iron Binding Capacity,Total 323 ug/dL (250-450); PERCENT IRON SATURATION 10.2 % (15.0-55.0); Potassium 4.4 mmol/L (3.5-5.1); Sodium Level 143 mmol/L (136-145)
== END | disposition home or self-care (01) ==
LOC: BFHLAB 14:09
PROVIDERS: PCP Family Medicine; Referring Provider Family Medicine; Visit Provider Family Medicine
DX: N18.32 Chronic kidney disease, stage 3b (principal); D64.9 Anemia, unspecified
CPT/HCPCS: 36415; 80048; 83540; 83550

== ENCOUNTER 2024-04-03 09:34 | Emergency (ER) | payer MEDICARE, OTHER, SELFPAY ==
[2024-04-03 09:35] VITALS: BP 120/81; PULSE 91; RESP 18; TEMP 36.4; O2SAT 100; BMI 26.4
[2024-04-03 09:36] VITALS: BP 120/81; PULSE 87; RESP 16; TEMP 36.4; O2SAT 96
--- NOTE | 2024-04-03 10:17 | EX.ED.DYSGE1 ---
HPI History of Present Illness Chief Complaint: Abscess Detail of Chief Complaint: Abscess left buttock Informant: patient Narrative Narrative: Patient presents with an abscess to his left buttock that he states really noticed 2 days ago. Denies fevers chills or sweats. Patient states that he has had multiple of these in the past that have required incision and drainage. Patient states sometimes they drain on their own. Patient otherwise feels well and has no other complaints. Patient states that this morning he did open up and drain a little bit but feels like it needs further attention. [facility] Medical History (Updated 04/03/24 @ 10:[address] Alex Jones, DO) History of renal dialysis History of renal disease Prostate disease Shortness of breath on exertion History of edema Former smoker UTI due to extended-spectrum beta lactamase (ESBL) producing Escherichia coli Infected sebaceous cyst of skin EPO-resistant anemia Hepatomegaly Edema Dyspnea Chronic kidney disease (CKD) stage G3b/A1, moderately decreased glomerular filtration rate (GFR) between 30-44 mL/min/1.73 square meter and albuminuria creatinine ratio less than 30 mg/g CKD (chronic kidney disease) stage 3, GFR 30-59 ml/min Hyperthyroidism ICD (implantable cardioverter-defibrillator) in place Pacemaker TIA (transient ischemic attack) Anemia Abscess of left buttock Wears dentures Open wound Thyroid disease Anemia High cholesterol History of GI bleed History of ulceration Smoker Leg cramps History of echocardiogram Cardiology follow-up encounter Edema of left lower extremity Acute bronchitis, unspecified Stroke Acute stomach ulcer Kidney disease HTN (hypertension) PAF (paroxysmal atrial fibrillation) Mild atherosclerosis of both carotid arteries History of stroke Presence of biventricular cardiac pacemaker Vitamin deficiency Ulcer Kidney failure Carpal tunnel syndrome Nonrheumatic tricuspid valve regurgitation Aortic valve endocarditis (~12/2017) Acute CVA (cerebrovascular accident) (10/27/17) 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 Atrial fibrillation Sinus bradycardia Presence of permanent cardiac pacemaker (~01/19/18) Mitral valve insufficiency and aortic valve insufficiency Sick sinus syndrome SOB (shortness of breath) Anemia, iron deficiency Hypothyroidism Tobacco abuse Aortic stenosis Atherosclerotic heart disease of [place] coronary artery without angina pectoris Atrioventricular block, type I Premature ventricular contraction Abnormal EKG Hyperlipidemia Ventricular hypertrophy Bruit of left carotid artery Retinal embolus Home Medications ?Medication ?Instructions ?Recorded ?Last Taken ?Type cyanocobalamin (vitamin B-12) 500 500 mcg PO QDAY SUPPLEMENT 03/27/17 12/25/23 History mcg tablet acetaminophen 500 mg tablet 1,000 mg PO Q4H PRN Pain 10/27/17 03/30/23 History pantoprazole 20 mg tablet,delayed 40 mg PO BID reflux 03/15/18 03/31/23 History release levothyroxine 150 mcg tablet 150 mcg PO DAILY thyroid 03/31/23 03/31/23 History cholecalciferol (vitamin D3) 75 75 mcg PO DAILY SUPPLEMENT 07/09/23 12/25/23 History mcg (3,000 unit) tablet thiamine HCl (vitamin B1) 100 mg 100 mg PO DAILY 07/09/23 Unknown History tablet carvedilol 25 mg tablet 25 mg PO BID blood pressure #180 08/03/23 12/26/23 Rx tabs finasteride 5 mg tablet 5 mg PO QDAY 01/19/24 Unknown History furosemide 40 mg tablet 40 mg PO QDAY #30 tabs 01/19/24 Unknown Rx tamsulosin 0.4 mg capsule 0.4 mg PO BID HELP WITH URINE FLOW 01/19/24 Unknown History atorvastatin 20 mg tablet 20 mg PO DAILY cholesterol #90 tabs 01/26/24 Unknown Rx apixaban 5 mg tablet (Eliquis) 5 mg PO BID blood thinner #180 tabs 02/12/24 Unknown Rx cephalexin 500 mg capsule 500 mg PO Q6 #28 CAPSULES 04/03/24 Unknown Rx Allergy/AdvReac Type Severity Reaction Status Date / Time Penicillins AdvReac Severe Hives Verified 04/03/24 09:37 sulfamethoxazole (From AdvReac Intermediate Other Verified 04/03/24 09:37 Bactrim) trimethoprim (From Bactrim) AdvReac Intermediate Other Verified 04/03/24 09:37 Family History Father CAD (coronary artery disease) Mother CAD (coronary artery disease) Thyroid disorder Sister Thyroid cancer Grandmother Diabetes Grandfather Alcoholism Surgical History History of cardiac catheterization History of heart surgery (~2017) History of tricuspid valve repair (~01/19/18) History of aortic valve replacement with bioprosthetic valve (~01/19/18) S/P aortic valve replacement History of carpal tunnel surgery History of knee surgery History of gastric bypass Social History (Updated 04/03/24 @ 10:21 by Hoda Hightower) household members: none current occupational status: retired Smoking Status: Former smoker alcohol intake: current alcohol intake frequency: holidays/special occasions only substance use type: does not use caffeine: Yes Type: coffee what type of physical activity do you participate in: none seatbelt use: always do you feel safe at home: Yes ROS ROS ED Review of Systems ROS Unobtainable: other Constitutional Constitutional ED: Reports lethargy; Denies chills, fever(s), sweats or weight loss Eyes Eyes: Denies blurry vision, change in vision or diplopia ENT ENT ED: Denies rhinorrhea or sore throat Cardiovascular Cardiovascular: Denies chest pain, orthopnea or racing heartbeat Respiratory/Chest Respiratory/Chest: Denies cough, dyspnea, dyspnea on exertion, orthopnea or sputum Gastrointestinal Gastrointestinal: Denies abdominal pain, diarrhea, nausea or vomiting Genitourinary Genitourinary ED: Denies dysuria, hematuria or urinary frequency Musculoskeletal Musculoskeletal: Denies arthralgias, back pain, myalgias or neck pain Integumentary Reports other Details: Left buttock abscess ; Denies abscess, Abrasions or rash Neurologic Neurologic: Denies headache(s) or weakness Psychiatric Psychiatric: Denies anxiety, depression or suicidal thoughts Endocrine Endocrinology: Denies polydipsia, polyphagia or polyuria Hematologic/Lymphatic Hematologic/Lymphatic: Denies easy bleeding, easy bruising or lymphadenopathy Allergic/Immunologic Allergic/Immunologic ED: Denies mouth swelling, tongue swelling or urticaria EXAM Physical Exam Const Vital Signs: 04/03/24 09:35 04/03/24 09:36 Temperature 97.5 F L 97.5 F L Temperature Source Oral Oral Pulse Rate 91 87 Respiratory Rate 18 16 Blood Pressure 120/81 H 120/81 H Blood Pressure Mean 94 94 Pulse Ox 100 96 Oxygen Delivery Method Room Air Room Air Positive well nourished and well developed General Appearance ED: well developed and NAD HEENT Reports TM's clear and moist mucous membranes normocephalic and atraumatic; Negative for trauma or tenderness Tympanic Membrane ED: Yes TM's clear Eyes PERRL and EOMs intact bilaterally General Eye ED: Negative for pale conjunctiva or scleral icterus Neck no lymphadenopathy, supple and no JVD General: Negative for tenderness Chest Wall inspection of chest normal and palpation of chest normal Chest: Negative for tenderness Resp normal respiratory effort and clear to auscultation bilaterally Effort and Inspection: Negative for respiratory distress or pain with movement Auscultation: Negative for rhonchi, wheezes or diminished lung sounds Cardio regular rate, regular rhythm, S1 normal heart sound, S2 normal heart sound and no murmurs Peripheral Pulses: pulses 2+ throughout GI normal to inspection, nondistended, normoactive bowel sounds, soft to palpation, non-tender, non-distended and no masses Back/Spine no CVA tenderness and no thoracic nor lumbar tenderness Extremity normal to inspection General Extremety ED: Negative for edema General Extremity: Negative for edema Neuro oriented x3, CN's II-XII intact bilaterally, no sensory deficits noted and gait normal Sensorium / Orientation: awake, alert, oriented to person, oriented to place and oriented to time Motor Exam: strength 5/5 throughout and strength abnormal Psych mental status grossly normal Skin Skin Narrative: Patient has a large fluctuant abscess left upper buttock measuring approximately 6 x 5 cm. Area has some chronic scarring related to prior incision and drainage. No significant cellulitic changes noted. MDM MDM MDM Narrative Medical decision making narrative: Patient presents with history of abscesses to the left buttock that been chronic and has seen general surgery for these in the past. Otherwise looks well and does not appear ill. He agreed to incision and drainage of the abscess. Please see procedure note. Packing was placed into the abscess after it was drained. He was started on Keflex. He is referred back to general surgery for follow-up within the next 3 to 5 days for a wound check. Advised to return if increasing pain, redness, swelling, fever, or condition worsening way. Patient is scheduled to have a TURP in 5 days and he is advised to contact his surgeon regarding the procedure to discuss if they would continue this given his abscess that is now currently treated. Will continue to treat with Keflex which she has had in the past and is tolerated well. Procedures Other Procedures Procedure(s): Patient gave verbal consent for incision and drainage of abscess to the left buttock. Area of the skin was cleansed with Shur-Clens. Anesthetized locally with 1% lidocaine total of 5 cc. Using an 11 blade a 2 and half centimeter incision made into the most fluctuant portion of the suspected abscess and large amount of free-flowing purulent and foul-smelling debris was expressed. I did milk the suspected abscess and continued obtained large amount of purulent debris. I did irrigate the cavity with saline. I placed gauze into the cavity. Will start patient on Keflex. Discharge Plan Triage Chief Complaint: Abscess ED Provider: Alex Jones Dx/Rx/DC Orders Clinical Impression: Abscess, gluteal Instructions: ED Abscess Incision And Drainage Prescriptions: New cephalexin 500 mg capsule 500 mg PO Q6 Qty: 28 0RF No Action pantoprazole 20 mg tablet,delayed release (DR/EC) 40 mg PO BID finasteride 5 mg tablet 5 mg PO QDAY furosemide 40 mg tablet 40 mg PO QDAY Qty: 30 7RF cholecalciferol (vitamin D3) 75 mcg (3,000 unit) tablet 75 mcg PO DAILY thiamine HCl (vitamin B1) 100 mg tablet 100 mg PO DAILY acetaminophen 500 MG tablet 1,000 mg PO Q4H PRN (Reason: Pain) levothyroxine 150 mcg tablet 150 mcg PO DAILY tamsulosin 0.4 mg capsule 0.4 mg PO BID cyanocobalamin (vitamin B-12) 500 mcg tablet 500 mcg PO QDAY carvedilol 25 mg tablet 25 mg PO BID Qty: 180 4RF atorvastatin 20 mg tablet 20 mg PO DAILY Qty: 90 3RF Eliquis 5 mg tablet 5 mg PO BID Qty: 180 4RF Primary Care Provider: Tapan Cuellar Referrals: Mrak Norris MD [Med Staff - Active Staff] - 3-5 Days Tapan Cuellar DO [Primary Care Provider] - Print Language: Slovak Disposition Disposition: Home, Self Care
[2024-04-03] MEDS: Lidocaine 1% /Epi 1:100 (20ml) 20 ML Vial 5 ML INFILT (11:05)
[2024-04-03] MEDS: Cephalexin 250 MG Capsule 500 MG PO (11:06)
[2024-04-03 11:09] VITALS: BP 125/74; PULSE 77; RESP 16; TEMP 36.4; O2SAT 98
== END 2024-04-03 11:10 | disposition home or self-care (01) ==
PROVIDERS: Emergency Provider Emergency Medicine; PCP Family Medicine; Visit Provider Emergency Medicine
DX: L02.31 Cutaneous abscess of buttock (principal); N18.32 Chronic kidney disease, stage 3b; Z87.891 Personal history of nicotine dependence; I12.9 Hypertensive chronic kidney disease with stage 1 through stage 4 chronic kidney disease, or unspecified chronic kidney disease; I25.10 Atherosclerotic heart disease of native coronary artery without angina pectoris; E78.00 Pure hypercholesterolemia, unspecified; Z95.810 Presence of automatic (implantable) cardiac defibrillator
CPT/HCPCS: 10060; 99282

== ENCOUNTER 2024-04-06 12:58 | Inpatient (IN) | payer MEDICARE, OTHER, SELFPAY ==
--- NOTE | 2024-03-25 08:16 | EKG12_ITS ---
Test Reason : PRE OP Blood Pressure : */* mmHG Vent. Rate : 85 BPM Atrial Rate : 90 BPM P-R Int : * ms QRS Dur : 182 ms QT Int : 432 ms P-R-T Axes : * -84 91 degrees QTcB Int : 514 ms Electronic ventricular pacemaker Confirmed by EVIN ZAMORA, SANDRA ([id number]), technical writer and editor ODALIS SMALLS ([id number]) on 03/25/2024 10:51:55 AM Referred By: Binu Brannon Confirmed By: SANDRA CLEARY MD
[2024-03-25 08:53] LABS: Hematocrit 26.2 % (40-54); Hemoglobin 7.2 g/dL (13.0-16.5); Mean Corp Hgb Conc 27.5 g/dL (32-36); Mean Corpuscular Hgb 27.1 pg (27.0-32.0); Mean Corpuscular Volume 98.5 fL (80-94); Mean Platelet Vol. 8.9 fl (6.2-12.0); Platelet Count 222 K/mm3 (150-450); RBC Distribution Width CV 16.6 % (11.6-14.6); RBC Distribution Width SD 59.4 fl (35.1-43.9); Red Blood Count 2.66 M/mm3 (4.6-6.2); White Blood Count 5.2 K/mm3 (4.4-11.0)
[2024-03-25 09:20] LABS: International Normalized Ratio 1.4; Partial Thromboplast Time 33.9 Seconds (24.1-36.2); Prothrombin Time (Protime)PT. 17.8 SECONDS (11.7-14.9)
[2024-03-25 09:31] LABS: Anion Gap 5 (5-15); BUN 73 mg/dL (7-18); BUN/Creat Ratio 28.1 RATIO (10-20); Calcium,Total 8.9 mg/dL (8.5-10.1); Chloride 109 mmol/L (98-107); EST Glomerular Filtration Rate 26 mL/min (>60); Est Glom Filt Rate - Afr Amer 32 mL/min (>60); Glucose 113 mg/dL (74-106); Potassium 4.6 mmol/L (3.5-5.1); Sodium Level 138 mmol/L (136-145); Thyroid Stim Hormone (TSH) 0.374 uIU/mL (0.358-3.740)
--- NOTE | 2024-03-28 12:34 | PAT.ANESEVAL ---
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 When Was Last Pacemaker Check QUESTION #4 FULL TEXT: You/Your Family Experience fever (hyperthermia) with Anesthesia Last Oral Intake Last Oral intake: Last Oral Intake NPO since Meds taken in AM with sips of water? 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 Female No 03/24/24 11:36 HX of Motion Sickness No 03/24/24 11:36 HX of N/V After Surgery No 03/24/24 11:36 Non-Smoker Yes 03/24/24 11:36 Duration of Surgery greater Yes 03/24/24 11:36 than 60 minutes Number of Risk Factors 2 03/24/24 11:36 PONV Score Moderate Risk 03/24/24 11:36 Height & Weight Height & Weight: Anesthesia: Height & Weight Height 6 ft 4 in 01/19/24 09:26 Respiratory Assessment Respiratory Assessment - salvage winder and inspector: Respiratory Tract Infection Hx - 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 Has anyone observed you stop No 03/24/24 11:36 breathing during sleep? STOP Results Negative 03/24/24 11:36 QUESTION #5 FULL TEXT : Do you snore loudly (louder than talking or can be heard through closed doors)? 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 Specify any problems Hx of Preganancy in last 3 N/A 03/24/24 11:36 Months Nurse Filling Out Transfusion NBUCHER 03/24/24 11:36 & Questions: Date: 03/24/24 03/24/24 11:36 Time: 11:39 03/24/24 11:36 Patient unable to answer at this time (ie. confused, unrespo /Reproduction History /Reproductive History - salvage winder and inspector: /Reproductive Hx- salvage winder and inspector Hx Now No 03/24/24 11:36 Gestational Age (in weeks): EDC: Hx Hx Para Hx Section SAB No 03/24/24 11:36 [facility] Medical History (Updated 03/24/24 @ 11:46 by Cecilia Hollingsworth) History of renal dialysis History of renal disease Prostate disease Shortness of breath on exertion History of edema Former smoker UTI due to extended-spectrum beta lactamase (ESBL) producing Escherichia coli Infected sebaceous cyst of skin EPO-resistant anemia Hepatomegaly Edema Dyspnea Chronic kidney disease (CKD) stage G3b/A1, moderately decreased glomerular filtration rate (GFR) between 30-44 mL/min/1.73 square meter and albuminuria creatinine ratio less than 30 mg/g CKD (chronic kidney disease) stage 3, GFR 30-59 ml/min Hyperthyroidism ICD (implantable cardioverter-defibrillator) in place Pacemaker TIA (transient ischemic attack) Anemia Abscess of left buttock Wears dentures Open wound Thyroid disease Anemia High cholesterol History of GI bleed History of ulceration Smoker Leg cramps History of echocardiogram Cardiology follow-up encounter Edema of left lower extremity Acute bronchitis, unspecified Stroke Acute stomach ulcer Kidney disease HTN (hypertension) PAF (paroxysmal atrial fibrillation) Mild atherosclerosis of both carotid arteries History of stroke Presence of biventricular cardiac pacemaker Vitamin deficiency Ulcer Kidney failure Carpal tunnel syndrome Nonrheumatic tricuspid valve regurgitation Aortic valve endocarditis (~12/2017) Acute CVA (cerebrovascular accident) (10/27/17) 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 Atrial fibrillation Sinus bradycardia Presence of permanent cardiac pacemaker (~01/19/18) Mitral valve insufficiency and aortic valve insufficiency Sick sinus syndrome SOB (shortness of breath) Anemia, iron deficiency Hypothyroidism Tobacco abuse Aortic stenosis Atherosclerotic heart disease of [place] coronary artery without angina pectoris Atrioventricular block, type I Premature ventricular contraction Abnormal EKG Hyperlipidemia Ventricular hypertrophy Bruit of left carotid artery Retinal embolus Home Medications ?Medication ?Instructions ?Recorded ?Last Taken ?Type cyanocobalamin (vitamin B-12) 500 500 mcg PO QDAY SUPPLEMENT 03/27/17 12/25/23 History mcg tablet acetaminophen 500 mg tablet 1,000 mg PO Q4H PRN Pain 10/27/17 03/30/23 History pantoprazole 20 mg tablet,delayed 40 mg PO BID reflux 03/15/18 03/31/23 History release levothyroxine 150 mcg tablet 150 mcg PO DAILY thyroid 03/31/23 03/31/23 History cholecalciferol (vitamin D3) 75 75 mcg PO DAILY SUPPLEMENT 07/09/23 12/25/23 History mcg (3,000 unit) tablet thiamine HCl (vitamin B1) 100 mg 100 mg PO DAILY 07/09/23 Unknown History tablet carvedilol 25 mg tablet 25 mg PO BID blood pressure #180 08/03/23 12/26/23 Rx tabs finasteride 5 mg tablet 5 mg PO QDAY 01/19/24 Unknown History furosemide 40 mg tablet 40 mg PO QDAY #30 tabs 01/19/24 Unknown Rx tamsulosin 0.4 mg capsule 0.4 mg PO BID HELP WITH URINE FLOW 01/19/24 Unknown History atorvastatin 20 mg tablet 20 mg PO DAILY cholesterol #90 tabs 01/26/24 Unknown Rx apixaban 5 mg tablet (Eliquis) 5 mg PO BID blood thinner #180 tabs 02/12/24 Unknown Rx Allergy/AdvReac Type Severity Reaction Status Date / Time Penicillins AdvReac Severe Hives Verified 03/24/24 11:32 sulfamethoxazole (From AdvReac Intermediate Other Verified 03/24/24 11:32 Bactrim) trimethoprim (From Bactrim) AdvReac Intermediate Other Verified 03/24/24 11:32 Family History Father CAD (coronary artery disease) Mother CAD (coronary artery disease) Thyroid disorder Sister Thyroid cancer Grandmother Diabetes Grandfather Alcoholism Surgical History (Updated 03/24/24 @ 11:46 by Cecilia Hollingsworth) History of cardiac catheterization History of heart surgery (~2017) History of tricuspid valve repair (~01/19/18) History of aortic valve replacement with bioprosthetic valve (~01/19/18) S/P aortic valve replacement History of carpal tunnel surgery History of knee surgery History of gastric bypass Social History Smoking Status: Former smoker alcohol intake: current alcohol intake frequency: holidays/special occasions only substance use type: does not use caffeine: Yes Type: coffee what type of physical activity do you participate in: none seatbelt use: always do you feel safe at home: Yes Audit: Pertinent Findings Pertinent Findings EKG Perinent findings: 03/25/2024 electronic ventricular paced 90 bpm Echo (EF%) pertinent findings: June 10, 2023. Ejection fraction is 60%. Pulmonary artery systolic pressure is 50 mmHg. Consult pertinent findings: Cardiology 01/19/2024 status post aortic valve replacement resolved most recent echo 60% 2. History of tricuspid valve repair resolved stable 3. Permanent cardiac pacemaker chronic for paroxysmal atrial fibrillation continue beta-magdy Recommendation Anesthesia Recommendation Anesthesia recommendation: OPTIMIZED for anesthesia
[2024-04-06] VITALS (13 sets, daily range): BP systolic 99–126; BP diastolic 60–79; PULSE 59–73; RESP 16–18; TEMP 36.2–36.7; O2SAT 93–100; BMI 26.3
--- NOTE | 2024-04-06 | IMM_PTH ---
PATIENT: DAKOTA RIVERA LOC: [facility] U#:[id number] AGE/SX: 69/M [place] [facility] [place]: Dr. Binu Brannon MD : [id number] BED: 1 DIS: 04/10/2024 SPEC #: [id number] RECD: 04/08/24 13:52 STATUS: SOUT REQ #: [id number] JAYASHREE: 04/06/24 00:[address]: Binu Brannon DEPT: IMMUNOHISTOCHEMISTRY RECD BY: Christo Wick ENTERED: 04/08/24 13:52 SP TYPE: IMMUNO OTHR DR: DO Dr. Loki Mirza MD Tissues: Prostate, NOS Procedures: 34BE12 (add) P40 (initial) PHYSICIAN & INSTITUTION [place] [id number] SPECIMEN INFORMATION: Tissue Source: Prostate tissue Clinical Info: Enlarged prostate benign prostatic hyperplasia Specimen Number: [id number] CPT code: 79189,57957 METHODOLOGY: Deparaffinized sections of prefer/formalin-fixed tissue or PAP/DQ stained slides are incubated with monoclonal/polyclonal antibodies/oligonucleotide probes. Localization is made via biotin free immunoperoxidase method. Appropriate controls are performed and reacted as expected. Results on target cell population are indicated in the following table: RESULTS: ANTIBODY / CLONE RESULT P40 (BC28) negative 34BE12 (34BE12) negative These tests were developed and their performance characteristics determined by [facility]. They may not have been cleared or approved by the [place]. Food and Drug Administration. The FDA has determined that such clearance or approval is not necessary. The above immunohistochemical/dualISH markers are ordered and reviewed by the Pathologist. INTERPRETATION: Prostate tissue, transurethral resection: Adenocarcinoma. 04/11/2024
[2024-04-06] MEDS: 0.9% Normal Saline (1000mL) 1,000 ML 15 ML IV (10:26)
--- NOTE | 2024-04-06 10:28 | PRE.ANES_ITS ---
ASA Classification* ASA Classification ASA Classification: 3 Assessment & Plan Anesthesia* Anesthesia Assessment Anesthesia Assessment: Discussed sedation and/or anesthesia options, risks, benefits, and alternatives with patient/parents/legal guardian/POA. Questions invited. The patient/parents/legal guardian/POA seems to understand and agrees to proceed with anesthesia plan. Reviewed the physical assessment, medical history, allergy history and patient home medications list prior to surgery/procedure/anesthetic and documented any changes. Performed airway and anesthesia risk assessments. Anesthesia Type Anesthesia Type: General Anesthesia Focused Assessment* Temperature: 98.0 F Pulse Rate: 73 Blood Pressure: 123/68 Respiratory Rate: 18 Pulse Ox: 95 Airway Assessment Mouth opens: >3 cm Mallampati Score: II Focused Labs Anesthesia Preop lab: CBC WBC 5.2 K/mm3 (4.4-11.0) 03/25/24 08:38 RBC 2.66 M/mm3 (4.6-6.2) L 03/25/24 08:38 Hgb 7.2 g/dL (13.0-16.5) L 03/25/24 08:38 Hct 26.2 % (40-54) L 03/25/24 08:38 Plt Count 222 K/mm3 (150-450) 03/25/24 08:38 CHEMISTRY Potassium 4.6 mmol/L (3.5-5.1) 03/25/24 08:38 Sodium 138 mmol/L (136-145) 03/25/24 08:38 Magnesium 2.5 mg/dL (1.6-2.6) 03/31/23 13:45 Phosphorus 4.9 mg/dL (2.5-4.9) 08/19/23 10:41 BUN 73 mg/dL (7-18) H 03/25/24 08:38 Creatinine 2.60 mg/dL (0.70-1.30) H 03/25/24 08:38 Glucose 113 mg/dL (74-106) H 03/25/24 08:38 POC Glucose 85 mg/dL (74-106) 04/01/23 00:10 TSH 0.374 uIU/mL (0.358-3.740) 03/25/24 08:38 COAG PT 17.8 SECONDS (11.7-14.9) H 03/25/24 08:38 Pre-Assessment Diagnosis/Proposed Procedure Planned Operative Procedure(s): Cysto,Transurethral Resection Prostate Anesthesia History Anesthesia History - administrative and program specialist: Anesthesia History - administrative and program specialist Hx Hospitalization Yes: pneumonia, uti and 03/24/24 11:36 covid Any Problems With Anesthesia No 03/24/24 11:36 Cholinesterase deficiency No 03/24/24 11:36 You/Your Family Experience No 03/24/24 11:36 fever (hyperthermia) with Relationship Recent Exposure to Contagious No 04/06/24 10:16 Disease Does patient have nerve No 03/24/24 11:36 stimulator Patient instructed to have device shut off --Does patient have Pacemaker Yes 04/06/24 10:16 or ICD? When Was Last Pacemaker Check QUESTION #4 FULL TEXT: You/Your Family Experience fever (hyperthermia) with Anesthesia Last Oral Intake Last Oral intake: Last Oral Intake NPO since 06:00 04/06/24 10:16 Meds taken in AM with sips of Yes 04/06/24 10:16 water? Meds patient instructed to see med rec 04/06/24 10:16 take am of surgery PONV PONV - administrative and program specialist: PONV - administrative and program specialist Female No 03/24/24 11:36 HX of Motion Sickness No 03/24/24 11:36 HX of N/V After Surgery No 03/24/24 11:36 Non-Smoker Yes 03/24/24 11:36 Duration of Surgery greater Yes 03/24/24 11:36 than 60 minutes Number of Risk Factors 2 03/24/24 11:36 PONV Score Moderate Risk 03/24/24 11:36 Height & Weight Height & Weight: Anesthesia: Height & Weight Height 6 ft 4 in 04/06/24 10:16 Weight: 98 kg 04/06/24 10:16 Body Mass Index (BMI) 26.3 04/06/24 10:16 Respiratory Assessment Respiratory Assessment - administrative and program specialist: Respiratory Tract Infection Hx - administrative and program specialist Hx Respiratory Tract Infection Yes: covid 01/202403/24/24 11:36 STOP Sleep Apnea STOP Sleep Apnea - administrative and program specialist: STOP Sleep Apnea - administrative and program specialist Hx Hypertension Yes: CONTROLLED, recently 03/24/24 11:36 taken off amlodipine due to low bp Hx Sleep Apnea No 03/24/24 11:36 CPAP No 03/24/24 11:36 BIPAP Do you snore loudly (louder No 03/24/24 11:36 than talking or can be heard Do you often feel tired/ No 03/24/24 11:36 fatigued/ sleepy during daytime? Has anyone observed you stop No 03/24/24 11:36 breathing during sleep? STOP Results Negative 03/24/24 11:36 QUESTION #5 FULL TEXT : Do you snore loudly (louder than talking or can be heard through closed doors)? 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 Specify any problems Hx of Preganancy in last 3 N/A 03/24/24 11:36 Months Nurse Filling Out Transfusion NBUCHER 03/24/24 11:36 & Questions: Date: 03/24/24 03/24/24 11:36 Time: 11:39 03/24/24 11:36 Patient unable to answer at this time (ie. confused, unrespo /Reproduction History /Reproductive History - administrative and program specialist: /Reproductive Hx- administrative and program specialist Hx Now No 03/24/24 11:36 Gestational Age (in weeks): EDC: Hx Hx Para Hx Section SAB No 03/24/24 11:36 Active Medications Active Medications: Current Medications Generic Name Dose Route Start Last Admin Trade Name Freq PRN Reason Stop Dose Admin Sodium Chloride 1,000 mls @ 15 mls/hr 04/06/24 10:25 04/06/24 10:26 IV 04/11/24 23:44 15 mls/hr .Q48H ATUL Administration Protocol [facility] Medical History History of renal dialysis History of renal disease Prostate disease Shortness of breath on exertion History of edema Former smoker UTI due to extended-spectrum beta lactamase (ESBL) producing Escherichia coli Infected sebaceous cyst of skin EPO-resistant anemia Hepatomegaly Edema Dyspnea Chronic kidney disease (CKD) stage G3b/A1, moderately decreased glomerular filtration rate (GFR) between 30-44 mL/min/1.73 square meter and albuminuria creatinine ratio less than 30 mg/g CKD (chronic kidney disease) stage 3, GFR 30-59 ml/min Hyperthyroidism ICD (implantable cardioverter-defibrillator) in place Pacemaker TIA (transient ischemic attack) Anemia Abscess of left buttock Wears dentures Open wound Thyroid disease Anemia High cholesterol History of GI bleed History of ulceration Smoker Leg cramps History of echocardiogram Cardiology follow-up encounter Edema of left lower extremity Acute bronchitis, unspecified Stroke Acute stomach ulcer Kidney disease HTN (hypertension) PAF (paroxysmal atrial fibrillation) Mild atherosclerosis of both carotid arteries History of stroke Presence of biventricular cardiac pacemaker Vitamin deficiency Ulcer Kidney failure Carpal tunnel syndrome Nonrheumatic tricuspid valve regurgitation Aortic valve endocarditis (~12/2017) Acute CVA (cerebrovascular accident) (10/27/17) 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 ligation 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 use of 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 Atrial fibrillation Sinus bradycardia Presence of permanent cardiac pacemaker (~01/19/18) Mitral valve insufficiency and aortic valve insufficiency Sick sinus syndrome SOB (shortness of breath) Anemia, iron deficiency Hypothyroidism Tobacco abuse Aortic stenosis Atherosclerotic heart disease of [place] coronary artery without angina pectoris Atrioventricular block, type I Premature ventricular contraction Abnormal EKG Hyperlipidemia Ventricular hypertrophy Bruit of left carotid artery Retinal embolus Home Medications ?Medication ?Instructions ?Recorded ?Last Taken ?Type cyanocobalamin (vitamin B-12) 500 500 mcg PO QDAY SUPPLEMENT 03/27/17 04/05/24 History mcg tablet acetaminophen 500 mg tablet 1,000 mg PO Q4H PRN Pain 10/27/17 03/30/23 History pantoprazole 20 mg tablet,delayed 40 mg PO BID reflux 03/15/18 04/06/24 06:00 History release levothyroxine 150 mcg tablet 150 mcg PO DAILY thyroid 03/31/23 04/06/24 06:00 History cholecalciferol (vitamin D3) 75 75 mcg PO DAILY SUPPLEMENT 07/09/23 04/05/24 History mcg (3,000 unit) tablet thiamine HCl (vitamin B1) 100 mg 100 mg PO DAILY 07/09/23 04/03/24 History tablet carvedilol 25 mg tablet 25 mg PO BID blood pressure #180 08/03/23 04/06/24 06:00 Rx tabs finasteride 5 mg tablet 5 mg PO QDAY 01/19/24 04/05/24 History furosemide 40 mg tablet 40 mg PO QDAY #30 tabs 01/19/24 04/05/24 Rx tamsulosin 0.4 mg capsule 0.4 mg PO BID HELP WITH URINE FLOW 01/19/24 04/06/24 06:00 History atorvastatin 20 mg tablet 20 mg PO DAILY cholesterol #90 tabs 01/26/24 04/05/24 18:00 Rx apixaban 5 mg tablet (Eliquis) 5 mg PO BID blood thinner #180 tabs 02/12/24 04/03/24 06:00 Rx cephalexin 500 mg capsule 500 mg PO Q6 #28 CAPSULES 04/03/24 04/06/24 06:00 Rx Allergy/AdvReac Type Severity Reaction Status Date / Time Penicillins AdvReac Severe Hives Verified 04/06/24 10:13 sulfamethoxazole (From AdvReac Intermediate Other Verified 04/06/24 10:13 Bactrim) trimethoprim (From Bactrim) AdvReac Intermediate Other Verified 04/06/24 10:13 Family History Father CAD (coronary artery disease) Mother CAD (coronary artery disease) Thyroid disorder Sister Thyroid cancer Grandmother Diabetes Grandfather Alcoholism Surgical History History of cardiac catheterization History of heart surgery (~2018) History of tricuspid valve repair (~01/19/18) History of aortic valve replacement with bioprosthetic valve (~01/19/18) S/P aortic valve replacement History of carpal tunnel surgery History of knee surgery History of gastric bypass Social History household members: none current occupational status: retired Smoking Status: Former smoker alcohol intake: current alcohol intake frequency: holidays/special occasions only substance use type: does not use caffeine: Yes Type: coffee what type of physical activity do you participate in: none seatbelt use: always do you feel safe at home: Yes Review of Systems (Anesthesia) ROS Narrative System reviewed and no additional complaints, except as documented.
--- NOTE | 2024-04-06 11:55 | PROS_PTH ---
PATIENT: DAKOTA RIVERA LOC: MS3 U#:[id number] AGE/SX: 69/M ROOM: [facility] RE04/08/[address]: Dr. Binu Brannon MD : [id number] BED: 1 DIS: 04/10/2024 SPEC #: [id number] RECD: 04/06/24 14:40 STATUS: AMBER JAIN #: [id number] JAYASHREE: 04/06/24 11:[address]: Binu Brannon DEPT: SURGICAL PATHOLOGY RECD BY: Viktoria Elkins ENTERED: 04/07/24 08:07 SP TYPE: TURP OTHR DR: Dr. Tapan Cuellar, DO Tissues: Prostate, NOS Procedures: Surgery Specimen Level IV HEADER OPERATION: Transurethral resection prostate PRE-OP DIAGNOSIS: Enlarged prostate benign prostatic hyperplasia TISSUE SUBMITTED: Prostate tissue MICROSCOPIC DIAGNOSIS Prostate tissue, transurethral resection: Prostatic adenocarcinoma. See cancer summary in the comment section. SJ.mr 04/11/2024 COMMENT PROSTATE CANCER (TUR) SUMMARY: Procedure - transurethral resection of prostate (TURP) Histologic type - Adenocarcinoma Histologic grade (grade group & Roberto score) - grade group 1 (Roberto score (3+3=6) Tumor Quantitation (TUR specimens): Proportion (%) of prostatic tissue involved by tumor - <5% Periprostatic fat invasion - Not appliable Seminal vesicle invasion - Not applicable Lymphvascular invasion - Not present Perineural invasion - Not present Additional pathologic findings - - Benign prostatic hyperplasia, glandular and stromal type. - chronic inflammation, basal cell hyperplasia. Treatment effect - No known presurgical therapy The above summary is in compliance with [employer] [place] [employer] (CAP) Cancer Protocols Checklist and [place] Joint Committee on Cancer (AJCC), Staging Manual, 8th Ed. Immunohistochemistry ([id number]) supports the above diagnosis. MICROSCOPIC DESCRIPTION Slides are reviewed. GROSS DESCRIPTION Received is one container labeled with the patient's name and designated prostate tissue. The specimen consists of multiple irregular fragments of pink-chang, rubbery, soft tissue that in aggregate weigh 3.5 gm and measure in aggregate 3.0 x 2.0 x 0.5 cm. The entire specimen is submitted in four cassettes. 04/07/2024 TC:0 CPT: 95816
[2024-04-06] MEDS: Cefazolin 2 GM in Syringe IV (12:09)
--- NOTE | 2024-04-06 12:50 | PCM.POST.ANE ---
Anesthesia: Postop Eval I Current Vital Signs Temperature: 97.2 F Pulse Rate: 61 Blood Pressure: 99/63 Respiratory Rate: 16 Pulse Ox: 94 Oxygen Delivery Method: Nasal Cannula Oxygen Flow Rate (L/min): 2 Assessment Airway patent: Yes Spontaneous unlabored respirations: Yes Mental status: Awake and Calm nausea: No Vomiting: No Anesthesia Complication: No Fluid Hydration Crystalloid volume administer (ml): 800 Total IV fluid infused: 800 Progress Note Anesthesia document: Postop Eval 1 completed: Yes
--- NOTE | 2024-04-06 13:02 | HP.PCM_ITS ---
HPI - General General Date of Service: 04/06/24 Chief Complaint: TURP [facility] Narrative DAKOTA RIVERA, is a 69 M who [facility] Medical History History of renal dialysis History of renal disease Prostate disease Shortness of breath on exertion History of edema Former smoker UTI due to extended-spectrum beta lactamase (ESBL) producing Escherichia coli Infected sebaceous cyst of skin EPO-resistant anemia Hepatomegaly Edema Dyspnea Chronic kidney disease (CKD) stage G3b/A1, moderately decreased glomerular filtration rate (GFR) between 30-44 mL/min/1.73 square meter and albuminuria creatinine ratio less than 30 mg/g CKD (chronic kidney disease) stage 3, GFR 30-59 ml/min Hyperthyroidism ICD (implantable cardioverter-defibrillator) in place Pacemaker TIA (transient ischemic attack) Anemia Abscess of left buttock Wears dentures Open wound Thyroid disease Anemia High cholesterol History of GI bleed History of ulceration Smoker Leg cramps History of echocardiogram Cardiology follow-up encounter Edema of left lower extremity Acute bronchitis, unspecified Stroke Acute stomach ulcer Kidney disease HTN (hypertension) PAF (paroxysmal atrial fibrillation) Mild atherosclerosis of both carotid arteries History of stroke Presence of biventricular cardiac pacemaker Vitamin deficiency Ulcer Kidney failure Carpal tunnel syndrome Nonrheumatic tricuspid valve regurgitation Aortic valve endocarditis (~12/2017) Acute CVA (cerebrovascular accident) (10/27/17) 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 ligation correction current use of 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 Atrial fibrillation Sinus bradycardia Presence of permanent cardiac pacemaker (~01/19/18) Mitral valve insufficiency and aortic valve insufficiency Sick sinus syndrome SOB (shortness of breath) Anemia, iron deficiency Hypothyroidism Tobacco abuse Aortic stenosis Atherosclerotic heart disease of [place] coronary artery without angina pectoris Atrioventricular block, type I Premature ventricular contraction Abnormal EKG Hyperlipidemia Ventricular hypertrophy Bruit of left carotid artery Retinal embolus Home Medications ?Medication ?Instructions ?Recorded ?Last Taken ?Type cyanocobalamin (vitamin B-12) 500 500 mcg PO QDAY SUPPLEMENT 03/27/17 04/05/24 History mcg tablet acetaminophen 500 mg tablet 1,000 mg PO Q4H PRN Pain 10/27/17 03/30/23 History pantoprazole 20 mg tablet,delayed 40 mg PO BID reflux 03/15/18 04/06/24 06:00 History release levothyroxine 150 mcg tablet 150 mcg PO DAILY thyroid 03/31/23 04/06/24 06:00 History cholecalciferol (vitamin D3) 75 75 mcg PO DAILY SUPPLEMENT 07/09/23 04/05/24 History mcg (3,000 unit) tablet thiamine HCl (vitamin B1) 100 mg 100 mg PO DAILY 07/09/23 04/03/24 History tablet carvedilol 25 mg tablet 25 mg PO BID blood pressure #180 08/03/23 04/06/24 06:00 Rx tabs furosemide 40 mg tablet 40 mg PO QDAY #30 tabs 01/19/24 04/05/24 Rx atorvastatin 20 mg tablet 20 mg PO DAILY cholesterol #90 tabs 01/26/24 04/05/24 18:00 Rx apixaban 5 mg tablet (Eliquis) 5 mg PO BID blood thinner #180 tabs 02/12/24 04/03/24 06:00 Rx cephalexin 500 mg capsule 500 mg PO Q6 #28 CAPSULES 04/03/24 04/06/24 06:00 Rx Allergy/AdvReac Type Severity Reaction Status Date / Time Penicillins AdvReac Severe Hives Verified 04/06/24 10:13 sulfamethoxazole (From AdvReac Intermediate Other Verified 04/06/24 10:13 Bactrim) trimethoprim (From Bactrim) AdvReac Intermediate Other Verified 04/06/24 10:13 Family History Father CAD (coronary artery disease) Mother CAD (coronary artery disease) Thyroid disorder Sister Thyroid cancer Grandmother Diabetes Grandfather Alcoholism Surgical History History of cardiac catheterization History of heart surgery (~2017) History of tricuspid valve repair (~01/19/18) History of aortic valve replacement with bioprosthetic valve (~01/19/18) S/P aortic valve replacement History of carpal tunnel surgery History of knee surgery History of gastric bypass Social History household members: none current occupational status: retired Smoking Status: Former smoker alcohol intake: current alcohol intake frequency: holidays/special occasions only substance use type: does not use caffeine: Yes Type: coffee what type of physical activity do you participate in: none seatbelt use: always do you feel safe at home: Yes Vital Signs Vital Signs Vital Signs: 04/06/24 10:16 04/06/24 10:16 04/06/24 10:29 Temperature 98.0 F 98.0 F Temperature Source Temporal Pulse Rate 73 73 Respiratory Rate 18 18 Respiratory Pattern Normal Blood Pressure 123/68 H 123/68 H Blood Pressure Mean 86 Blood Pressure Source Monitor Blood Pressure Position Sitting Blood Pressure Location Left Arm Baseline BP Pulse Ox 95 95 Oxygen Delivery Method Room Air Oxygen Flow Rate (L/min) 04/06/24 12:48 04/06/24 12:50 04/06/24 12:52 Temperature 97.5 F L 97.2 F L Temperature Source Temporal Pulse Rate 61 61 61 Respiratory Rate 16 16 16 Respiratory Pattern Normal Blood Pressure 99/67 99/63 99/63 Blood Pressure Mean 77 75 Blood Pressure Source Monitor Monitor Blood Pressure Position Supine Supine Blood Pressure Location Right Arm Right Arm Baseline BP 123/68 123/68 Pulse Ox 94 93 94 Oxygen Delivery Method Nasal Cannula Nasal Cannula Nasal Cannula Oxygen Flow Rate (L/min) 2 2 2 Weight Weight: 98 kg Body Mass Index (BMI) 26.3 Results Lab / Micro Data 03/25/24 08:38 03/25/24 08:38
--- NOTE | 2024-04-06 13:03 | PCM.DC ---
Discharge Instructions Diet Discharge Diet: No restrictions DC O2, CPAP, BIPAP needs Home O2 Discharge instructions: No Dressing / Incision Discharge Activity: Return to Normal Activity and May Not Drive (while taking narcotic pain medications.) Dressing / Incision Call your doctor if you observe: Fever of 101 or Higher Follow Up Care Please Follow Up With: Binu Brannon MD When: Call [phone] for an appointment Test Results: Test results from this visit will be discussed in further detail at your follow-up appointment, if applicable. Discharge Plan Admission Primary Reason for Your Visit: turp Attending Provider: Binu Brannon Primary Care Provider: Tapan Cuellar Instructions Print Language: Slovak Discharge Orders/Prescriptions Prescriptions: Continued pantoprazole 20 mg tablet,delayed release (DR/EC) 40 mg PO BID furosemide 40 mg tablet 40 mg PO QDAY Qty: 30 7RF cholecalciferol (vitamin D3) 75 mcg (3,000 unit) tablet 75 mcg PO DAILY thiamine HCl (vitamin B1) 100 mg tablet 100 mg PO DAILY acetaminophen 500 MG tablet 1,000 mg PO Q4H PRN (Reason: Pain) levothyroxine 150 mcg tablet 150 mcg PO DAILY cephalexin 500 mg capsule 500 mg PO Q6 Qty: 28 0RF cyanocobalamin (vitamin B-12) 500 mcg tablet 500 mcg PO QDAY carvedilol 25 mg tablet 25 mg PO BID Qty: 180 4RF atorvastatin 20 mg tablet 20 mg PO DAILY Qty: 90 3RF Held Eliquis 5 mg tablet 5 mg PO BID Qty: 180 4RF Hold Instructions: Resume on 04/20/24. Discontinued finasteride 5 mg tablet 5 mg PO QDAY tamsulosin 0.4 mg capsule 0.4 mg PO BID Other Ambulatory Orders: 12 Lead EKG (Routine) Timeframe: 20240325 Location: None Selected Ordered By: Dr. Keith Valdes Referrals / Follow Up: Tapan Cuellar DO [Primary Care Provider] - Disposition Disposition (needs filled in before D/C Order can be placed): Home, Self Care
--- NOTE | 2024-04-06 13:04 | POSTOPAN2_ITS ---
Anesthesia Postop Eval I Sum Postop Eval Completion status Anesthesia document: Postop Eval 1 completed: Yes Anesthesia Postop Eval I Summary Anesthesia Postop Eval I Summary: Anesthesia Postop Eval I: Assessment Summary Airway patent Yes 04/06/24 12:52 [email or web address] [email or web address] Spontaneous unlabored Yes 04/06/24 12:52 CRIMPER [email or web address].[email or web address] respirations Mental status Awake,Calm 04/06/24 12:52 CRIMPER [email or web address] nausea No 04/06/24 12:52 CRIMPER [email or web address].GDOTT Vomiting No 04/06/24 12:52 CRIMPER [email or web address].[email or web address] Anesthesia Postop Eval I: Fluid Summary Crystalloid volume administer 800 04/06/24 12:52 CRIMPER [email or web address].GDOTT (ml) Colloids volume administered ( ml) Blood Product volume administered (ml) Total IV fluid infused 800 04/06/24 12:52 CRIMPER [email or web address].GDOTT Anesthesia Postop Eval I: Summary Notes Anesthesia Complication No 04/06/24 12:52 CRIMPER [email or web address].[email or web address] Anesthesia Complication Comment: Post-operative progress note Anesthesia: Postop Eval II Evaluation Mental status: Awake Pain Level: 0 nausea: No Vomiting: No
--- NOTE | 2024-04-06 13:04 | PCM.OPRPT ---
Operative Report (Standard) Operative Information Date of Procedure: 04/06/24 Pre-Operative Diagnosis: BPH with obstruction Post-Operative Diagnosis: The same Surgery/Procedure Performed: Transurethral section of prostate elastic attacher overlock: No Type of Anesthesia: General RN Documented Start/Stop Times: Operation Date: 04/06/24 11:55 Case Time Into Pre-Op 04/06/24 09:53 Out of Pre-Op 04/06/24 11:53 Anesthesia Start 04/06/24 11:57 Into Room 04/06/24 11:57 Procedure Start 04/06/24 12:17 Procedure End 04/06/24 12:43 Anesthesia End 04/06/24 12:46 Out of Room 04/06/24 12:46 Into Recovery 04/06/24 12:48 Procedure Start Time: 12:17 Procedure Stop Time: 13:04 Select all DRAINS/GRAFTS/IMPLANTS that apply: Drains Drain details: 22FR Estimated Blood Loss: 10 Specimen collected: Yes Description of specimen(s) removed: Prostate tissue Description of surgery: In the preoperative setting I discussed with the patient how the surgery would be done with expect afterwards. We discussed how a prostate resection is done and we discussed the risk of the surgery including, bleeding, infection, retrograde ejaculation, changes with ejaculation or intercourse,. We discussed the possibility that the resection of the prostate may not alleviate his urinary symptoms. We discussed the small risk of developing scar tissue along the urethral channel and strictures. We also discussed the chance of the prostate could grow back and he may need further surgery or treatment in the future for prostate problems. Patient was taken back to the operating room, timeout procedure was performed, he was identified and marked and placed on the operating room table. He underwent general anesthesia. He was placed in dorsolithotomy position. Penis and testicles were prepped and draped in usual sterile fashion. Went into the bladder using the visual obturator with a resectoscope. Once inside the bladder identified the right and left ureteral orifice. I then identified the prostate and the anatomy of the prostate. I marked out the area of the sphincter and the verumontanum was identified. I then proceeded with the prostate resection first resected the median lobe. And then resected the right lobe of the prostate. Then to resect the left lobe of the prostate. I then resected the apical tissue of the prostate. This was a complete resection of all obstructive tissue to improve voiding and relieve obstruction. I then made sure that there was no injury to the sphincter or the verumontanum was still intact. At the end of the resection all the chips were Ellik out of the bladder. I then identified the left and right ureteral orifice and these were confirmed to be in good position and effluxing and not injured. The resectoscope was removed, a 22 Upper [place] catheter was placed into the bladder on continuous irrigation. And the urine was fairly light pink color and draining normally. He was taken back to the PACU in good condition. Surgical Findings: TURP small prostate Complications Complications: No Admit VTE Documentation VTE Present on Admission: No VTE Mechan Device Prophylaxis: SCD's VTE Pharm Prophylaxis ordered?: No
--- NOTE | 2024-04-06 13:04 | PCM.POSTANE2 ---
Anesthesia Postop Eval I Sum Postop Eval Completion status Anesthesia document: Postop Eval 1 completed: Yes Anesthesia Postop Eval I Summary Anesthesia Postop Eval I Summary: Anesthesia Postop Eval I: Assessment Summary Airway patent Yes 04/06/24 12:52 [email or web address] Spontaneous unlabored Yes 04/06/24 12:52 [email or web address] respirations Mental status Awake,Calm 04/06/24 12:52 [email or web address] nausea No 04/06/24 12:52 [email or web address] Vomiting No 04/06/24 12:52 [email or web address] Anesthesia Postop Eval I: Fluid Summary Crystalloid volume administer 800 04/06/24 12:52 [email or web address] (ml) Colloids volume administered ( ml) Blood Product volume administered (ml) Total IV fluid infused 800 04/06/24 12:52 [email or web address] Anesthesia Postop Eval I: Summary Notes Anesthesia Complication No 04/06/24 12:52 [email or web address] Anesthesia Complication Comment: Post-operative progress note Anesthesia: Postop Eval II Evaluation Mental status: Awake Pain Level: 0 nausea: No Vomiting: No
--- NOTE | 2024-04-06 15:47 | NURSING ---
pt up from AC and IVF bag is dry so received bag down in AC but is not correct per MAR wasted amount
[2024-04-06] MEDS: 0.9% Normal Saline (1000mL) 1,000 ML 125 ML IV ×2 (15:54→23:06)
[2024-04-06] MEDS: Acetaminophen 325 MG Tablet 650 MG PO ×2 (17:01→23:06)
[2024-04-06] MEDS: Cephalexin 500 MG Capsule PO ×2 (17:01→23:06)
[2024-04-06] MEDS: oxyCODONE 5 MG Tablet PO (17:02)
[2024-04-06] MEDS: Carvedilol 25 MG Tablet PO (21:18)
[2024-04-06] MEDS: Ciprofloxacin 500 MG Tablet PO (21:18)
[2024-04-06] MEDS: Pantoprazole Sodium 40 MG Tablet PO (21:18)
[2024-04-07] MEDS: Cephalexin 500 MG Capsule PO ×4 (05:26→23:54)
[2024-04-07] MEDS: Levothyroxine 150 MCG Tablet PO (05:26)
[2024-04-07 05:31] VITALS: BP 111/66; PULSE 62; RESP 16; TEMP 36.4; O2SAT 96
--- NOTE | 2024-04-07 07:36 | PCM.PN.GU ---
Subjective Subjective urine clear herring out pt can go home after voids check PVR Objective Data Objective Data Vital Signs: Vital Signs Temp Pulse Resp BP Pulse Ox O2 Del Method O2 Flow Rate 97.6 F L 62 16 111/66 96 Room Air 2 04/07/24 05:31 04/07/24 05:31 04/07/24 05:31 04/07/24 05:31 04/07/24 05:31 04/07/24 05:31 04/06/24 13:30 Oxygen Flow Rate (L/min) 2 Oxygen Delivery Method Room Air Weight: 98 kg Body Mass Index (BMI) 26.3 Intake & Output: Intake and Output for Last 24 Hours 04/05/24 04/06/24 04/07/24 23:59 23:59 23:59 Intake Total 1999 1750 / 1750 Output Total 1999 Balance 1999 -250 / -250 Lab / Micro Data 03/25/24 08:38 03/25/24 08:38
[2024-04-07 07:45] VITALS: O2SAT 96
[2024-04-07 07:49] VITALS: BP 108/65; PULSE 77; RESP 18; TEMP 36.6; O2SAT 96
[2024-04-07] MEDS: Docusate Sodium 100 MG Capsule 200 MG PO ×2 (07:51→22:54)
[2024-04-07] MEDS: Furosemide 40 MG Tablet PO (07:52)
[2024-04-07] MEDS: Carvedilol 25 MG Tablet PO ×2 (07:52→22:54)
[2024-04-07] MEDS: Ciprofloxacin 500 MG Tablet PO ×2 (07:52→22:54)
[2024-04-07] MEDS: Pantoprazole Sodium 40 MG Tablet PO ×2 (07:53→22:54)
--- NOTE | 2024-04-07 08:37 | NURSING ---
concur with SN assessment
[2024-04-07 13:53] VITALS: BP 100/63; PULSE 59; RESP 18; TEMP 36.4; O2SAT 97
--- NOTE | 2024-04-07 15:42 | NURSING ---
attempted to irrigate, as pt states he is feeling uncomfortable, some large stringy clots in the tubing. only very small amount return of pink liquid, no clots. Dr. Brannon paged.
--- NOTE | 2024-04-07 16:31 | PCM.PN.GU ---
Subjective Subjective urine too bloody d/c discharge keep herring in place. nurse can flush PRN Objective Data Objective Data Vital Signs: Vital Signs Temp Pulse Resp BP Pulse Ox O2 Del Method O2 Flow Rate 97.6 F L 59 L 18 100/63 97 Room Air 2 04/07/24 13:53 04/07/24 13:53 04/07/24 13:53 04/07/24 13:53 04/07/24 13:53 04/07/24 13:53 04/06/24 13:30 Oxygen Flow Rate (L/min) 2 Oxygen Delivery Method Room Air Weight: 98 kg Body Mass Index (BMI) 26.3 Intake & Output: Intake and Output for Last 24 Hours 04/05/24 04/06/24 04/07/24 23:59 23:59 23:59 Intake Total 1999 2710 / 2710 Output Total 2675 / 2675 Balance 1999 35 / 35 Lab / Micro Data 03/25/24 08:38 03/25/24 08:38
[2024-04-07] MEDS: Acetaminophen 325 MG Tablet 650 MG PO (17:46)
[2024-04-07] MEDS: oxyCODONE 5 MG Tablet PO ×2 (17:47→23:54)
[2024-04-07 22:49] VITALS: BP 111/71; PULSE 60; RESP 15; TEMP 36.6; O2SAT 99
[2024-04-08] VITALS (23 sets, daily range): BP systolic 103–135; BP diastolic 58–88; PULSE 60–97; RESP 15–20; TEMP 36.2–37.2; O2SAT 89–100
[2024-04-08] MEDS: Cephalexin 500 MG Capsule PO (05:57)
[2024-04-08] MEDS: Levothyroxine 150 MCG Tablet PO (05:57)
[2024-04-08 06:06] LABS: Absolute Lymphocyte Count 1.15 X10^3/uL (0.83-4.51); Absolute Neutrophil Count 6.1 X10^3/uL (2.0-7.7); Basophil# 0.02 X10^3/uL; Basophil% 0.2 % (0-1); Eosinophil# 0.02 X10^3/uL; Eosinophils% 0.2 % (0-5); Hematocrit 19.2 % (40-54); Lymphocyte # 1.15 X10^3/ul (0.83-4.51); Lymphocyte % 13.9 % (19-41); Mean Corp Hgb Conc 28.1 g/dL (32-36); Mean Corpuscular Volume 99.5 fL (80-94); Mean Platelet Vol. 9.1 fl (6.2-12.0); Monocyte% 10.9 % (0-10); NRBC Flagged by Analyzer 0 % (0-5); Neutrophil # 6.12 X10^3/uL (2.7-7.7); Neutrophil % 74.3 % (47-70); POSITIVE COUNT YES; Platelet Count 161 K/mm3 (150-450); RBC Distribution Width CV 17.6 % (11.6-14.6); Red Blood Count 1.93 M/mm3 (4.6-6.2); White Blood Count 8.3 K/mm3 (4.4-11.0)
[2024-04-08 06:12] LABS: Differential Indicated SCAN CRITERIA MET; Hemoglobin 5.4 g/dL (13.0-16.5)
[2024-04-08 06:34] LABS: Anion Gap 7 (5-15); BUN 82 mg/dL (7-18); BUN/Creat Ratio 26.1 RATIO (10-20); Calcium,Total 8.1 mg/dL (8.5-10.1); Chloride 109 mmol/L (98-107); Creatinine, Serum 3.14 mg/dL (0.70-1.30); EST Glomerular Filtration Rate 21 mL/min (>60); Est Glom Filt Rate - Afr Amer 26 mL/min (>60); Estimated Creatinine Clearance 27.64 ml/min; Glucose 95 mg/dL (74-106); Potassium 5.6 mmol/L (3.5-5.1); Sodium Level 133 mmol/L (136-145)
--- NOTE | 2024-04-08 06:50 | PN.URO_ITS ---
Subjective Subjective Yesterday morning the urine is completely clear so we remove the catheter for voiding trial he was able to urinate some in the morning but in the afternoon had difficulty time going to the bathroom had a lot of clots put a regular catheter backend but it still was clotting off tried to coud? catheter but still was not working so we switched back to a continuous irrigation overnight he was on continuous irrigation had a lot of clots. This morning it is clearing up but his hemoglobin is down the 5 so organ to give him 2 units of blood. I put 30 cc more in the balloon and put the Medina on traction try to try get the bleeding to stop. Need to continue with CBI for this bleeding. He will get 2 units of blood continue to monitor his hemoglobin will check hemoglobin this afternoon after the blood transfusion. Objective Data Objective Data Vital Signs: Vital Signs Temp Pulse Resp BP Pulse Ox O2 Del Method O2 Flow Rate 98.1 F 62 15 105/59 L 95 Room Air 2 04/08/24 06:48 04/08/24 06:48 04/08/24 06:48 04/08/24 06:48 04/08/24 06:48 04/08/24 06:48 04/06/24 13:30 Oxygen Flow Rate (L/min) 2 Oxygen Delivery Method Room Air Weight: 98 kg Body Mass Index (BMI) 26.3 Intake & Output: Intake and Output for Last 24 Hours 04/06/24 04/07/24 04/08/24 23:59 23:59 23:59 Intake Total 1999 3160 / 3160 200 / 200 Output Total 3975 / 4075 3100 / 3100 Balance 1999 -815 / -915 -2900 / -2900 Lab / Micro Data 04/08/24 05:26 04/08/24 05:26 Labs: Laboratory Results - last 24 hr 04/08/24 05:26: WBC 8.3, RBC 1.93 L, Hgb 5.4 L*, Hct 19.2 L, MCV 99.5 H, MCH 28.0, MCHC 28.1 L, RDW Std Deviation 63.0 H, RDW Coeff of Hugo 17.6 H, Plt Count 161, MPV 9.1, Immature Gran % (Auto) 0.500, Neut % (Auto) 74.3 H, Lymph % (Auto) 13.9 L, Major % (Auto) 10.9 H, Eos % (Auto) 0.2, Baso % (Auto) 0.2, Absolute Neuts (auto) 6.1, Absolute Lymphs (auto) 1.15, Nucleated RBC % 0, Diff Path Review July, Sodium 133 L, Potassium 5.6 H, Chloride 109 H, Carbon Dioxide 17.0 L, Anion Gap 7, BUN 82 H, Creatinine 3.14 H, Estim Creat Clear Calc 27.64, Est GFR (MDRD) Af Amer 26 L, Est GFR (MDRD) Non-Af 21 L, BUN/Creatinine Ratio 26.1 H, Glucose 95, Calcium 8.1 L
[2024-04-08] MEDS: 0.9% Normal Saline (1000mL) 1,000 ML 50 ML IV (07:48)
[2024-04-08] MEDS: Acetaminophen 325 MG Tablet 650 MG PO (08:14)
[2024-04-08] MEDS: Ciprofloxacin 500 MG Tablet PO (08:15)
[2024-04-08] MEDS: Pantoprazole Sodium 40 MG Tablet PO (08:15)
[2024-04-08] MEDS: Carvedilol 25 MG Tablet PO (08:16)
[2024-04-08] MEDS: oxyCODONE 5 MG Tablet PO ×2 (11:26→17:33)
--- NOTE | 2024-04-08 14:46 | CASEMGMT ---
Met with patient to complete HERNANDEZ form. HERNANDEZ form explained to patient who voiced understanding and signed form. Original form placed in pt?s chart and copy provided to patient. Bruna Harris, Discharge Planning Asst
[2024-04-08 15:15] LABS: Hematocrit 23.6 % (40-54); Hemoglobin 6.9 g/dL (13.0-16.5); Mean Corp Hgb Conc 29.2 g/dL (32-36); Mean Corpuscular Volume 95.9 fL (80-94); Platelet Count 159 K/mm3 (150-450); RBC Distribution Width SD 61.4 fl (35.1-43.9); Red Blood Count 2.46 M/mm3 (4.6-6.2); White Blood Count 7.9 K/mm3 (4.4-11.0)
--- NOTE | 2024-04-08 15:53 | PN.HOSP_ITS ---
Subjective Subjective 69-year-old male status post TURP. Developed hematuria after procedure with clots and had to have Medina's placed with continuous bladder irrigation. He was found to have significant blood loss anemia the day down to a hemoglobin of 5.4. He received 2 units of blood and we were consulted to assist with medical management. Recheck this afternoon is with a hemoglobin of 6.9 so we will transfuse again given his cardiac history Objective Data Objective Data Vital Signs: Vital Signs Temp Pulse Resp BP Pulse Ox O2 Del Method O2 Flow Rate 98.0 F 62 16 112/62 96 Room Air 2 04/08/24 14:37 04/08/24 14:37 04/08/24 14:37 04/08/24 14:37 04/08/24 14:37 04/08/24 14:37 04/06/24 13:30 Oxygen Flow Rate (L/min) 2 Oxygen Delivery Method Room Air Weight: 216 lb 0.848 oz Body Mass Index (BMI) 26.3 Intake & Output: Intake and Output for Last 24 Hours 04/07/24 04/08/24 04/09/24 03:59 03:59 03:59 Intake Total 1999 3360 / 3360 1000 / 1000 Output Total 6375 / 6375 1999 Balance 1999 -3015 / -3015 -1000 / -1000 Lab / Micro Data 04/08/24 15:03 04/08/24 05:26 Labs: Laboratory Results - last 24 hr 04/08/24 05:26: WBC 8.3, RBC 1.93 L, Hgb 5.4 L*, Hct 19.2 L, MCV 99.5 H, MCH 28.0, MCHC 28.1 L, RDW Std Deviation 63.0 H, RDW Coeff of Hugo 17.6 H, Plt Count 161, MPV 9.1, Immature Gran % (Auto) 0.500, Neut % (Auto) 74.3 H, Lymph % (Auto) 13.9 L, [place] % (Auto) 10.9 H, Eos % (Auto) 0.2, Baso % (Auto) 0.2, Absolute Neuts (auto) 6.1, Absolute Lymphs (auto) 1.15, Nucleated RBC % 0, Diff Path Review Reviewed, Sodium 133 L, Potassium 5.6 H, Chloride 109 H, Carbon Dioxide 17.0 L, Anion Gap 7, BUN 82 H, Creatinine 3.14 H, Estim Creat Clear Calc 27.64, Est GFR (MDRD) Af Amer 26 L, Est GFR (MDRD) Non-Af 21 L, BUN/Creatinine Ratio 26.1 H, Glucose 95, Calcium 8.1 L 04/08/24 06:48: Blood Type A POSITIVE, Antibody Screen NEGATIVE, Crossmatch See Detail 04/08/24 15:03: WBC 7.9, RBC 2.46 L, Hgb 6.9 L, Hct 23.6 L, MCV 95.9 H, MCH 28.0, MCHC 29.2 L, RDW Std Deviation 61.4 H, RDW Coeff of Hugo 18.0 H, Plt Count 159, MPV 9.0 Physical Exam Narrative General: Alert, Oriented x3, Cooperative, No apparent distress HEENT: Atraumatic, PERRLA, EOMI, Normocephalic Oral: Moist Mucosa Neck: Supple, No JVD Lungs: Diminished, Normal air movement, No rhonchi, No wheeze, No rales Cardiovascular: Regular rate, Regular Rhythm, Normal S1, Normal S2, No murmurs Abdomen: Soft, Non Tender, Non-Distended, No Hepato-splenomegaly Extremities: Edema, Capillary Refill Less than 3 Seconds Skin: No rashes, No breakdown, pale Musculoskeletal: No Tenderness to Palpation of Joints or Extremities Neurological: No focal neurological deficits, moves all extremities Psych/Mental Status: Normal Affect, Appropriate Assessment & Plan Assessment/Plan (1) Acute urinary retention: PLAN: Plan 1. BPH status post TURP with urinary retention and hematuria with clots with blood loss anemia ? Continue with continuous bladder irrigation ? Continue to hold Eliquis, he states that he has bioprosthetic valve in place and he is on Eliquis for A-fib so we do have the ability to hold for a while though I did make it explicit to the patient and family that we are at risk for stroke which they have understood and accepted ? 2 units PRBCs corrected him from 5.4 up to 6.9, will transfuse another 2 units and recheck in the morning, given his cardiac history we will aim for hemoglobin closer to 8 2. Essential HTN/HLD/paroxysmal A-fib/history of aortic and mitral valve replacements/status post pacemaker placement/history of CVA ? Continue with his home blood pressure medications ? His statin is being held ? Will hold Eliquis while he has his hematuria 3. Hypothyroidism ? Stable ? Continue with Synthroid 4. GERD ? Stable ? Continue with PPI DVT: SCDs Charges/Coding Visit Charges Inpatient E&M: 82632 Subs Hosp L2
--- NOTE | 2024-04-08 17:42 | NURSING ---
This Rn has paged treating machine operator for Dr. Brannon twice with no response, still irrigating CBI, multiple clots out, pt in 10 pain. prn oxy given x2 NS bags running wide open in CBI
--- NOTE | 2024-04-08 18:12 | NURSING ---
aware per primary RN dwight Brannon has still not called her back, states she has paged patient twice. aware manual irrigations several times today. pt c/o significant pain despite pain medication. testing machine operator called whom called dr. brannon. updated on primary RN's concerns. aWare per Dr. Brannon he will be taking patient back to OR.
--- NOTE | 2024-04-08 18:51 | PRE.ANES_ITS ---
ASA Classification* ASA Classification ASA Classification: 3 and E Assessment & Plan Anesthesia* Anesthesia Assessment Anesthesia Assessment: Discussed sedation and/or anesthesia options, risks, benefits, and alternatives with patient/parents/legal guardian/POA. Questions invited. The patient/parents/legal guardian/POA seems to understand and agrees to proceed with anesthesia plan. Reviewed the physical assessment, medical history, allergy history and patient home medications list prior to surgery/procedure/anesthetic and documented any changes. Performed airway and anesthesia risk assessments. Anesthesia Type Anesthesia Type: General History Source History Obtained from:: Patient and Chart Anesthesia Focused Assessment* Temperature: 98.4 F Pulse Rate: 69 Blood Pressure: 135/76 Respiratory Rate: 18 Pulse Ox: 94 Oxygen Delivery Method: Room Air Oxygen Flow Rate (L/min): 2 Airway Assessment Mouth opens: >3 cm Mallampati Score: IV Teeth Condition: Dentures (Patient has full upper and lower dentures. Patient has just glued them in wishes to keep them in for the case) Neck Range of motion (ROM): Limited ROM (Slight decrease in extention) Focused Labs Anesthesia Preop lab: CBC WBC 7.9 K/mm3 (4.4-11.0) 04/08/24 15:03 RBC 2.46 M/mm3 (4.6-6.2) L 04/08/24 15:03 Hgb 6.9 g/dL (13.0-16.5) L 04/08/24 15:03 Hct 23.6 % (40-54) L 04/08/24 15:03 Plt Count 159 K/mm3 (150-450) 04/08/24 15:03 CHEMISTRY Potassium 5.6 mmol/L (3.5-5.1) H 04/08/24 05:26 Sodium 133 mmol/L (136-145) L 04/08/24 05:26 Magnesium 2.5 mg/dL (1.6-2.6) 03/31/23 13:45 Phosphorus 4.9 mg/dL (2.5-4.9) 08/19/23 10:41 BUN 82 mg/dL (7-18) H 04/08/24 05:26 Creatinine 3.14 mg/dL (0.70-1.30) H 04/08/24 05:26 Glucose 95 mg/dL (74-106) 04/08/24 05:26 POC Glucose 85 mg/dL (74-106) 04/01/23 00:10 TSH 0.374 uIU/mL (0.358-3.740) 03/25/24 08:38 COAG PT 17.8 SECONDS (11.7-14.9) H 03/25/24 08:38 Pre-Assessment Diagnosis/Proposed Procedure Planned Operative Procedure(s): Cystoscopy, evacuation of clots, cauterize bleeding. 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 When Was Last Pacemaker Check QUESTION #4 FULL TEXT: You/Your Family Experience fever (hyperthermia) with Anesthesia Last Oral Intake Last Oral intake: Last Oral Intake NPO since 06:00 04/06/24 10:16 Meds taken in AM with sips of Yes 04/06/24 10:16 water? Meds patient instructed to see med rec 04/06/24 10:16 take am of surgery Any additional information?: Yes NPO since: 14:00 (6 ounces of water is 1400) Meds taken in AM with sips of water?: Yes PONV PONV - java software developer: PONV - java software developer Female No 03/24/24 11:36 HX of Motion Sickness No 03/24/24 11:36 HX of N/V After Surgery No 03/24/24 11:36 Non-Smoker Yes 03/24/24 11:36 Duration of Surgery greater Yes 03/24/24 11:36 than 60 minutes Number of Risk Factors 2 03/24/24 11:36 PONV Score Moderate Risk 03/24/24 11:36 Height & Weight Height & Weight: Anesthesia: Height & Weight Height 6 ft 4 in 04/06/24 15:31 Weight: 98 kg 04/06/24 15:31 Body Mass Index (BMI) 26.3 04/06/24 15:31 Respiratory Assessment Respiratory Assessment - java software developer: Respiratory Tract Infection Hx - java software developer Hx Respiratory Tract Infection Yes: covid 01/202403/24/24 11:36 STOP Sleep Apnea STOP Sleep Apnea - java software developer: STOP Sleep Apnea - java software developer Hx Hypertension Yes: CONTROLLED, recently 03/24/24 11:36 taken off amlodipine due to low bp Hx Sleep Apnea No 04/06/24 13:15 CPAP No 04/06/24 12:48 BIPAP Do you snore loudly (louder No 03/24/24 11:36 than talking or can be heard Do you often feel tired/ No 03/24/24 11:36 fatigued/ sleepy during daytime? Has anyone observed you stop No 03/24/24 11:36 breathing during sleep? STOP Results Negative 04/06/24 12:48 QUESTION #5 FULL TEXT : Do you snore loudly (louder than talking or can be heard through closed doors)? 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 Specify any problems Hx of Preganancy in last 3 N/A 03/24/24 11:36 Months Nurse Filling Out Transfusion NBUCHER 03/24/24 11:36 & Questions: Date: 03/24/24 03/24/24 11:36 Time: 11:39 03/24/24 11:36 Patient unable to answer at this time (ie. confused, unrespo /Reproduction History /Reproductive History - java software developer: /Reproductive Hx- java software developer Hx Now No 03/24/24 11:36 Gestational Age (in weeks): EDC: Hx Hx Para Hx Section SAB No 03/24/24 11:36 Active Medications Active Medications: Current Medications Generic Name Dose Route Start Last Admin Trade Name Freq PRN Reason Stop Dose Admin Acetaminophen 650 mg 04/06/24 12:59 04/08/24 08:14 Acetaminophen 325 Mg Tablet PO 650 mg Q6H PRN PRN Administration Pain Score 1-10 Al Hydroxide/Mg Hydroxide 30 ml 04/06/24 12:59 Mag Hydrox/Al Hydrox/Simeth 30 Ml Udc PO Q4H PRN PRN HEARTBURN Carvedilol 25 mg 04/06/24 22:00 04/08/24 08:16 Carvedilol 25 Mg Tablet PO 25 mg BID ATUL Administration Protocol Ciprofloxacin HCl 500 mg 04/06/24 22:00 04/08/24 08:15 Ciprofloxacin 500 Mg Tablet PO 500 mg BID ATUL Administration Docusate Sodium 200 mg 04/06/24 22:00 04/08/24 08:15 Docusate Sodium 100 Mg Capsule PO Not Given BID ATUL Furosemide 40 mg 04/07/24 10:00 04/08/24 08:16 Furosemide 40 Mg Tablet PO Not Given DAILY ATUL Protocol Sodium Chloride 100 mls @ 15 mls/hr 04/06/24 15:25 IV .Q6H40M PRN Saline Flush Sodium Chloride 100 mls @ 15 mls/hr 04/06/24 15:25 IV .Q6H40M PRN Additional IVPB Infusion Sodium Chloride 1,000 mls @ 50 mls/hr 04/08/24 06:55 04/08/24 07:48 IV 04/09/24 06:54 50 mls/hr .Q20H ATUL Administration Protocol Levothyroxine Sodium 150 mcg 04/07/24 06:00 04/08/24 05:57 Levothyroxine 150 Mcg Tablet PO 150 mcg DAILY@0600 ATUL Administration Metoclopramide HCl 10 mg 04/06/24 12:59 Metoclopramide 10 Mg/2 Ml Vial IV Q8H PRN PRN Nausea/vomiting Ondansetron HCl 4 mg 04/06/24 12:59 Ondansetron 4 Mg/2 Ml Vial IV Q8H PRN NAUSEA/VOMITING Oxycodone HCl 5 - 10 mg 04/06/24 12:59 04/08/24 17:33 Oxycodone 5 Mg Tablet PO 10 mg Q6H PRN PRN Administration Pain Score 4-10 Pantoprazole Sodium 40 mg 04/06/24 22:00 04/08/24 08:15 Pantoprazole Sodium 40 Mg Tablet PO 40 mg BID ATUL Administration Sodium Chloride 10 - 40 ml 04/06/24 15:25 0.9% Saline Lock 10 Ml Syringe IV UD PRN SALINE FLUSH PFSH Medical History History of renal dialysis History of renal disease Prostate disease Shortness of breath on exertion History of edema Former smoker UTI due to extended-spectrum beta lactamase (ESBL) producing Escherichia coli Infected sebaceous cyst of skin EPO-resistant anemia Hepatomegaly Edema Dyspnea Chronic kidney disease (CKD) stage G3b/A1, moderately decreased glomerular filtration rate (GFR) between 30-44 mL/min/1.73 square meter and albuminuria creatinine ratio less than 30 mg/g CKD (chronic kidney disease) stage 3, GFR 30-59 ml/min Hyperthyroidism ICD (implantable cardioverter-defibrillator) in place Pacemaker TIA (transient ischemic attack) Anemia Abscess of left buttock Wears dentures Open wound Thyroid disease Anemia High cholesterol History of GI bleed History of ulceration Smoker Leg cramps History of echocardiogram Cardiology follow-up encounter Edema of left lower extremity Acute bronchitis, unspecified Stroke Acute stomach ulcer Kidney disease HTN (hypertension) PAF (paroxysmal atrial fibrillation) Mild atherosclerosis of both carotid arteries History of stroke Presence of biventricular cardiac pacemaker Vitamin deficiency Ulcer Kidney failure Carpal tunnel syndrome Nonrheumatic tricuspid valve regurgitation Aortic valve endocarditis (~12/2017) Acute CVA (cerebrovascular accident) (10/27/17) 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 ligation residential current use of 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 Atrial fibrillation Sinus bradycardia Presence of permanent cardiac pacemaker (~01/19/18) Mitral valve insufficiency and aortic valve insufficiency Sick sinus syndrome SOB (shortness of breath) Anemia, iron deficiency Hypothyroidism Tobacco abuse Aortic stenosis Atherosclerotic heart disease of [place] coronary artery without angina pectoris Atrioventricular block, type I Premature ventricular contraction Abnormal EKG Hyperlipidemia Ventricular hypertrophy Bruit of left carotid artery Retinal embolus Home Medications ?Medication ?Instructions ?Recorded ?Last Taken ?Type cyanocobalamin (vitamin B-12) 500 500 mcg PO QDAY SUPPLEMENT 03/27/17 04/05/24 History mcg tablet acetaminophen 500 mg tablet 1,000 mg PO Q4H PRN Pain 10/27/17 03/30/23 History pantoprazole 20 mg tablet,delayed 40 mg PO BID reflux 03/15/18 04/08/24 06:00 History release levothyroxine 150 mcg tablet 150 mcg PO DAILY thyroid 03/31/23 04/08/24 06:00 History cholecalciferol (vitamin D3) 75 75 mcg PO DAILY SUPPLEMENT 07/09/23 04/05/24 History mcg (3,000 unit) tablet thiamine HCl (vitamin B1) 100 mg 100 mg PO DAILY 07/09/23 04/03/24 History tablet carvedilol 25 mg tablet 25 mg PO BID blood pressure #180 08/03/23 04/08/24 06:00 Rx tabs furosemide 40 mg tablet 40 mg PO QDAY #30 tabs 01/19/24 04/05/24 Rx atorvastatin 20 mg tablet 20 mg PO DAILY cholesterol #90 tabs 01/26/24 04/05/24 18:00 Rx apixaban 5 mg tablet (Eliquis) 5 mg PO BID blood thinner #180 tabs 02/12/24 04/03/24 06:00 Rx cephalexin 500 mg capsule 500 mg PO Q6 #28 CAPSULES 04/03/24 04/08/24 06:00 Rx Allergy/AdvReac Type Severity Reaction Status Date / Time Penicillins AdvReac Severe Hives Verified 04/06/24 10:13 sulfamethoxazole (From AdvReac Intermediate Other Verified 04/06/24 10:13 Bactrim) trimethoprim (From Bactrim) AdvReac Intermediate Other Verified 04/06/24 10:13 Family History Father CAD (coronary artery disease) Mother CAD (coronary artery disease) Thyroid disorder Sister Thyroid cancer Grandmother Diabetes Grandfather Alcoholism Surgical History History of cardiac catheterization History of heart surgery (~2017) History of tricuspid valve repair (~01/19/18) History of aortic valve replacement with bioprosthetic valve (~10/30/18) S/P aortic valve replacement History of carpal tunnel surgery History of knee surgery History of gastric bypass Social History household members: none current occupational status: retired Smoking Status: Former smoker alcohol intake: current alcohol intake frequency: holidays/special occasions only substance use type: does not use caffeine: Yes Type: coffee what type of physical activity do you participate in: none seatbelt use: always do you feel safe at home: Yes Review of Systems (Anesthesia) ROS Narrative System reviewed and no additional complaints, except as documented.
--- NOTE | 2024-04-08 19:10 | PCM.PN.GU ---
Subjective Subjective Patient continues to have significant bleeding and has not stopped so I need to take him into surgery tonight to stop the bleeding. You?ve already given them two units of blood, the nurses report that they saw irrigate the catheter and has significant bleeding so I?m taking the night to stop the bleeding Objective Data Objective Data Vital Signs: Vital Signs Temp Pulse Resp BP Pulse Ox O2 Del Method O2 Flow Rate 98.4 F 69 18 135/76 H 94 Room Air 2 04/08/24 18:35 04/08/24 18:35 04/08/24 18:35 04/08/24 18:35 04/08/24 18:35 04/08/24 18:35 04/06/24 13:30 Oxygen Flow Rate (L/min) 2 Oxygen Delivery Method Room Air Weight: 98 kg Body Mass Index (BMI) 26.3 Intake & Output: Intake and Output for Last 24 Hours 04/06/24 04/07/24 04/08/24 23:59 23:59 23:59 Intake Total 1999 3160 / 3160 1820 / 1820 Output Total 3975 / 4075 4900 / 4900 Balance 1999 -815 / -915 -3080 / -3080 Lab / Micro Data 04/08/24 15:03 04/08/24 05:26 Labs: Laboratory Results - last 24 hr 04/08/24 05:26: WBC 8.3, RBC 1.93 L, Hgb 5.4 L*, Hct 19.2 L, MCV 99.5 H, MCH 28.0, MCHC 28.1 L, RDW Std Deviation 63.0 H, RDW Coeff of Hugo 17.6 H, Plt Count 161, MPV 9.1, Immature Gran % (Auto) 0.500, Neut % (Auto) 74.3 H, Lymph % (Auto) 13.9 L, [place] % (Auto) 10.9 H, Eos % (Auto) 0.2, Baso % (Auto) 0.2, Absolute Neuts (auto) 6.1, Absolute Lymphs (auto) 1.15, Nucleated RBC % 0, Diff Path Review Reviewed, Sodium 133 L, Potassium 5.6 H, Chloride 109 H, Carbon Dioxide 17.0 L, Anion Gap 7, BUN 82 H, Creatinine 3.14 H, Estim Creat Clear Calc 27.64, Est GFR (MDRD) Af Amer 26 L, Est GFR (MDRD) Non-Af 21 L, BUN/Creatinine Ratio 26.1 H, Glucose 95, Calcium 8.1 L 04/08/24 06:48: Blood Type A POSITIVE, Antibody Screen NEGATIVE, Crossmatch See Detail 04/08/24 06:48: Crossmatch See Detail 04/08/24 15:03: WBC 7.9, RBC 2.46 L, Hgb 6.9 L, Hct 23.6 L, MCV 95.9 H, MCH 28.0, MCHC 29.2 L, RDW Std Deviation 61.4 H, RDW Coeff of Hugo 18.0 H, Plt Count 159, MPV 9.0
--- NOTE | 2024-04-08 21:06 | PCM.OPRPT ---
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: No Type of Anesthesia: General RN Documented Start/Stop Times: Operation Date: 04/08/24 19:25 Case Time Anesthesia Start 04/08/24 20:00 Into Room 04/08/24 20:00 Procedure Start 04/08/24 20:20 Procedure End 04/08/24 20:52 Procedure Start Time: 20:20 Procedure Stop Time: 21:07 Select all DRAINS/GRAFTS/IMPLANTS that apply: Drains Drain details: 22 Trin[place] three-way catheter Estimated Blood Loss: 200 Specimen collected: No Description of surgery: Patient was taken back to the operating room, this is a 69-year-old male who had a TURP on Thursday, per surgery his urine was crystal clear and he went to the floor morning remove the catheter since the urine was clear for a voiding trial he then voided a little bit but then ended up having blood clots catheters were placed but then they were getting clotted so you are started on continuous bladder irrigation morning his hemoglobin is found to be quite low so he is given 2 units in the morning hospitalist was consulted he was given another 2 units in the afternoon bleeding continued so this evening we took him back to surgery to remove all the blood clots find a source of the bleeding and cauterize it Patient was taken back to the operating room after smooth induction by Dr. Valdes anesthesia he was placed in dorsal lithotomy position. [place] catheter was removed I went into the bladder with a 26 Trinid[place] continuous-flow Olympus resectoscope, I first manually evacuated out significant mount of clots out of the bladder once I got most of the clots out there was a significant amount of hemorrhage within the bladder then I switched over to the monopolar resectoscope with use glycine for irrigation and then I cauterized the prostate lining there was some oozing coming from entire lining of the prostate no real 1 site just cauterized the entire lining of the prostate it was kind of oozing after cauterizing this extensively getting all the clots out and there was no more bleeding turned off the irrigation there was no more bleeding and made sure that there was no more bleeding and then at this point we placed a 22 Trin[place] catheter into the bladder with no traction and on continuous irrigation the urine was crystal-clear and is taken back to the PACU in stable condition he finished getting his fourth unit fourth unit of blood during the surgery. He will be taken back to the PACU will continue with slow continuous irrigation. And resuscitation. Surgical Findings: Significant of blood clots within the bladder removed and oozing from the entire prostate lining Complications Complications: No Admit VTE Documentation VTE Present on Admission: No VTE Mechan Device Prophylaxis: SCD's VTE Pharm Prophylaxis ordered?: No
--- NOTE | 2024-04-08 21:10 | PCM.POST.ANE ---
Anesthesia: Postop Eval I Current Vital Signs Temperature: 97.5 F Pulse Rate: 86 Blood Pressure: 119/88 Respiratory Rate: 16 Pulse Ox: 94 Oxygen Delivery Method: Nasal Cannula Assessment Airway patent: Yes Spontaneous unlabored respirations: Yes Mental status: Awake and Calm nausea: No Vomiting: No Anesthesia Complication: No Fluid Hydration Crystalloid volume administer (ml): 800 Total IV fluid infused: 800 Progress Note Anesthesia document: Postop Eval 1 completed: Yes
[2024-04-09] VITALS: O2SAT 85
[2024-04-09 00:02] VITALS: BP 116/75; PULSE 60; RESP 18; TEMP 36.7; O2SAT 92
[2024-04-09] MEDS: Docusate Sodium 100 MG Capsule 200 MG PO ×3 (00:25→21:39)
[2024-04-09] MEDS: Carvedilol 25 MG Tablet PO ×3 (00:25→21:39)
[2024-04-09] MEDS: Pantoprazole Sodium 40 MG Tablet PO ×3 (00:25→21:39)
[2024-04-09] MEDS: Ciprofloxacin 500 MG Tablet PO ×3 (00:25→21:39)
[2024-04-09 02:02] VITALS: BP 115/72; PULSE 60; RESP 18; TEMP 36.4; O2SAT 92
[2024-04-09 05:59] LABS: Absolute Lymphocyte Count 0.88 X10^3/uL (0.83-4.51); Absolute Neutrophil Count 5.7 X10^3/uL (2.0-7.7); Basophil# 0.03 X10^3/uL; Basophil% 0.4 % (0-1); Eosinophil# 0.04 X10^3/uL; Eosinophils% 0.5 % (0-5); Hematocrit 27.1 % (40-54); Hemoglobin 8.1 g/dL (13.0-16.5); Lymphocyte # 0.88 X10^3/ul (0.83-4.51); Lymphocyte % 11.6 % (19-41); Mean Corp Hgb Conc 29.9 g/dL (32-36); Mean Corpuscular Hgb 27.5 pg (27.0-32.0); Mean Corpuscular Volume 91.9 fL (80-94); Mean Platelet Vol. 9.7 fl (6.2-12.0); Monocyte# 0.83 X10^3/uL; Monocyte% 10.9 % (0-10); NRBC Flagged by Analyzer 0.4 % (0-5); Neutrophil # 5.74 X10^3/uL (2.7-7.7); Neutrophil % 75.8 % (47-70); POSITIVE MORPHOLOGY YES; Platelet Count 161 K/mm3 (150-450); RBC Distribution Width CV 20.2 % (11.6-14.6); RBC Distribution Width SD 67.3 fl (35.1-43.9); Red Blood Count 2.95 M/mm3 (4.6-6.2); White Blood Count 7.6 K/mm3 (4.4-11.0)
[2024-04-09] MEDS: Levothyroxine 150 MCG Tablet PO (06:07)
[2024-04-09] MEDS: Acetaminophen 325 MG Tablet 650 MG PO (06:08)
[2024-04-09 06:24] LABS: Differential Indicated SCAN CRITERIA MET
[2024-04-09 06:30] LABS: Anion Gap 5 (5-15); BUN 74 mg/dL (7-18); BUN/Creat Ratio 26.1 RATIO (10-20); Calcium,Total 8.4 mg/dL (8.5-10.1); Chloride 114 mmol/L (98-107); Creatinine, Serum 2.83 mg/dL (0.70-1.30); EST Glomerular Filtration Rate 24 mL/min (>60); Est Glom Filt Rate - Afr Amer 29 mL/min (>60); Estimated Creatinine Clearance 30.67 ml/min; Glucose 85 mg/dL (74-106); Potassium 5.5 mmol/L (3.5-5.1); Sodium Level 137 mmol/L (136-145)
[2024-04-09 07:16] LABS: Anisocytosis 1+
[2024-04-09 09:15] VITALS: BP 100/66; PULSE 71; RESP 16; TEMP 36.7; O2SAT 93
--- NOTE | 2024-04-09 09:18 | PN.URO_ITS ---
Subjective Subjective 69-year-old male status post TURP who had post TURP bleeding at the taken back to surgery last night evacuate clots from his bladder cauterize a prostate and stop the bleeding urine today is crystal-clear no more bleeding the nurses can stop continuous irrigation hemoglobin was stable this morning. Creatinine was down. Looks like he is improving he is not having any more pain. Do not plan to discharge him today I will let him recover for 1 more day we will check a blood count tomorrow make sure it is stable I think he might be able to go home tomorrow with [place] catheter. Objective Data Objective Data Vital Signs: Vital Signs Temp Pulse Resp BP Pulse Ox O2 Del Method O2 Flow Rate 98.1 F 71 16 100/66 93 Room Air 2 04/09/24 09:15 04/09/24 09:15 04/09/24 09:15 04/09/24 09:15 04/09/24 09:15 04/09/24 09:15 04/09/24 00:02 Oxygen Flow Rate (L/min) 2 Oxygen Delivery Method Room Air Weight: 98 kg Body Mass Index (BMI) 26.3 Intake & Output: Intake and Output for Last 24 Hours 04/07/24 04/08/24 04/09/24 23:59 23:59 23:59 Intake Total 3160 / 3160 2200 / 2200 1000 / 1000 Output Total 3975 / 4075 6000 / 6000 Balance -815 / -915 -3800 / -3800 1000 / 1000 Lab / Micro Data 04/09/24 05:26 04/09/24 05:26 Labs: Laboratory Results - last 24 hr 04/08/24 05:26: Diff Path Review Reviewed 04/08/24 06:48: Blood Type A POSITIVE, Antibody Screen NEGATIVE, Crossmatch See Detail 04/08/24 06:48: Crossmatch See Detail 04/08/24 15:03: WBC 7.9, RBC 2.46 L, Hgb 6.9 L, Hct 23.6 L, MCV 95.9 H, MCH 28.0, MCHC 29.2 L, RDW Std Deviation 61.4 H, RDW Coeff of Hugo 18.0 H, Plt Count 159, MPV 9.0 04/09/24 05:26: WBC 7.6, RBC 2.95 L, Hgb 8.1 L, Hct 27.1 L, MCV 91.9, MCH 27.5, MCHC 29.9 L, RDW Std Deviation 67.3 H, RDW Coeff of Hugo 20.2 H, Plt Count 161, MPV 9.7, Immature Gran % (Auto) 0.800, Neut % (Auto) 75.8 H, Lymph % (Auto) 11.6 L, [place] % (Auto) 10.9 H, Eos % (Auto) 0.5, Baso % (Auto) 0.4, Absolute Neuts (auto) 5.7, Absolute Lymphs (auto) 0.88, Nucleated RBC % 0.4, Anisocytosis 1+, Sodium 137, Potassium 5.5 H, Chloride 114 H, Carbon Dioxide 18.0 L, Anion Gap 5, BUN 74 H, Creatinine 2.83 H, Estim Creat Clear Calc 30.67, Est GFR (MDRD) Af Amer 29 L, Est GFR (MDRD) Non-Af 24 L, BUN/Creatinine Ratio 26.1 H, Glucose 85, Calcium 8.4 L
--- NOTE | 2024-04-09 09:29 | NURSING ---
N.O. given by Dr. Brannon to d/c CBI irrigation. Order completed. Pt urine is clear, yellow.
[2024-04-09] MEDS: Furosemide 40 MG Tablet PO (09:33)
--- NOTE | 2024-04-09 10:15 | CASEMGMT ---
RN CM Face to Face with patient for initial transition planning/care coordination assessment. RN CM introduced self and role at [facility]. Patient lying in bed, alert and oriented. Patient willing to participate in assessment and is able to answer all questions appropriately. Care providers, pharmacy, and demographics verified. Strata: 2 PCP: Alisa Specialists: [place], urologist; Friend, GI; James, grating machine operator; Andry, control systems eng; Preferred Pharmacy: [facility] Insurance: [facility], [facility] Prescription Benefit: yes Living Will/HPOA: none LNOK: sister Living Arrangements: Patient lives alone in a single story home with no steps to enter. Patient is independent at home. Transportation: self, sister DME/HHC: Patient has grab bars at home. No previous HHC or SNF. Patient wishes to discharge home, denies need for home health at this time. Patient states he has no further needs or concerns at this time. CM to follow for discharge planning needs that may arise. Disposition Plan: Patient to discharge home with family support and follow-up plans in place. Kathleen VEE, RN, CM
--- NOTE | 2024-04-09 11:24 | PCM.POSTANE2 ---
Anesthesia Postop Eval I Sum Postop Eval Completion status Anesthesia document: Postop Eval 1 completed: Yes Anesthesia Postop Eval I Summary Anesthesia Postop Eval I Summary: Anesthesia Postop Eval I: Assessment Summary Airway patent Yes 04/08/24 21:15 Spontaneous unlabored Yes 04/08/24 21:15 respirations Mental status Awake,Calm 04/08/24 21:15 nausea No 04/08/24 21:15 Vomiting No 04/08/24 21:15 Anesthesia Postop Eval I: Fluid Summary Crystalloid volume administer 800 04/08/24 21:15 (ml) Colloids volume administered ( ml) Blood Product volume administered (ml) Total IV fluid infused 800 04/08/24 21:15 Anesthesia Postop Eval I: Summary Notes Anesthesia Complication No 04/08/24 21:15 Anesthesia Complication Comment: Post-operative progress note Anesthesia: Postop Eval II Evaluation Mental status: Awake and Calm Pain Level: 0 nausea: No Vomiting: No Complications Anesthesia Complication: No
[2024-04-09 13:15] LABS: Hemoglobin 8.8 g/dL (13.0-16.5)
[2024-04-09 15:13] VITALS: BP 120/73; PULSE 76; RESP 16; TEMP 37.3; O2SAT 95
[2024-04-09 21:32] VITALS: BP 119/71; PULSE 62; RESP 16; TEMP 36.8; O2SAT 95
[2024-04-10 02:56] VITALS: BP 120/65; PULSE 64; RESP 16; TEMP 36.9; O2SAT 96
[2024-04-10 04:10] LABS: Absolute Lymphocyte Count 0.69 X10^3/uL (0.83-4.51); Absolute Neutrophil Count 5.8 X10^3/uL (2.0-7.7); Basophil# 0.02 X10^3/uL; Basophil% 0.3 % (0-1); Eosinophils% 1.4 % (0-5); Hematocrit 28.6 % (40-54); Hemoglobin 8.3 g/dL (13.0-16.5); Lymphocyte # 0.69 X10^3/ul (0.83-4.51); Lymphocyte % 9.6 % (19-41); Mean Corpuscular Hgb 26.7 pg (27.0-32.0); Mean Platelet Vol. 9.2 fl (6.2-12.0); Monocyte# 0.58 X10^3/uL; Monocyte% 8.1 % (0-10); NRBC Flagged by Analyzer 0.3 % (0-5); Neutrophil # 5.75 X10^3/uL (2.7-7.7); Neutrophil % 80.2 % (47-70); POSITIVE MORPHOLOGY YES; Platelet Count 166 K/mm3 (150-450); RBC Distribution Width CV 20.1 % (11.6-14.6); RBC Distribution Width SD 67.4 fl (35.1-43.9); Red Blood Count 3.11 M/mm3 (4.6-6.2); White Blood Count 7.2 K/mm3 (4.4-11.0)
[2024-04-10 04:15] LABS: Differential Indicated SCAN CRITERIA MET
[2024-04-10 04:24] LABS: Anion Gap 6 (5-15); BUN 74 mg/dL (7-18); BUN/Creat Ratio 26.8 RATIO (10-20); Calcium,Total 8.3 mg/dL (8.5-10.1); Chloride 112 mmol/L (98-107); Creatinine, Serum 2.76 mg/dL (0.70-1.30); EST Glomerular Filtration Rate 25 mL/min (>60); Est Glom Filt Rate - Afr Amer 30 mL/min (>60); Estimated Creatinine Clearance 31.45 ml/min; Glucose 101 mg/dL (74-106); Potassium 5.3 mmol/L (3.5-5.1); Sodium Level 135 mmol/L (136-145)
[2024-04-10 06:11] LABS: Anisocytosis 1+
[2024-04-10] MEDS: Levothyroxine 150 MCG Tablet PO (06:40)
[2024-04-10] MEDS: Carvedilol 25 MG Tablet PO (08:10)
[2024-04-10 08:11] VITALS: BP 115/61; PULSE 62; RESP 18; TEMP 36.6; O2SAT 92
[2024-04-10] MEDS: Ciprofloxacin 500 MG Tablet PO (08:11)
[2024-04-10] MEDS: Acetaminophen 325 MG Tablet 650 MG PO (08:11)
[2024-04-10] MEDS: Pantoprazole Sodium 40 MG Tablet PO (08:11)
[2024-04-10] MEDS: Docusate Sodium 100 MG Capsule 200 MG PO (08:11)
[2024-04-10] MEDS: Furosemide 40 MG Tablet PO (08:11)
--- NOTE | 2024-04-10 09:32 | PCM.PN.HOSP ---
Subjective Subjective Doing well, no issues overnight. Urine is cleared up no hematuria Objective Data Objective Data Vital Signs: Vital Signs Temp Pulse Resp BP Pulse Ox O2 Del Method O2 Flow Rate 98.5 F 64 16 120/65 96 Room Air 2 04/10/24 02:56 04/10/24 02:56 04/10/24 02:56 04/10/24 02:56 04/10/24 02:56 04/10/24 02:56 04/09/24 00:02 Oxygen Flow Rate (L/min) 2 Oxygen Delivery Method Room Air Weight: 216 lb 0.848 oz Body Mass Index (BMI) 26.3 Intake & Output: Intake and Output for Last 24 Hours 04/09/24 04/10/24 04/11/24 03:59 03:59 03:59 Intake Total 3000 / 3000 400 / 400 350 / 350 Output Total 3600 / 3600 1100 / 1100 400 / 400 Balance -600 / -600 -700 / -700 -50 / -50 Lab / Micro Data 04/10/24 03:51 04/10/24 03:51 Labs: Laboratory Results - last 24 hr 04/09/24 13:04: Hgb 8.8 L, Hct 30.0 L 04/10/24 03:51: WBC 7.2, RBC 3.11 L, Hgb 8.3 L, Hct 28.6 L, MCV 92.0, MCH 26.7 L, MCHC 29.0 L, RDW Std Deviation 67.4 H, RDW Coeff of Hugo 20.1 H, Plt Count 166, MPV 9.2, Immature Gran % (Auto) 0.400, Neut % (Auto) 80.2 H, Lymph % (Auto) 9.6 L, Morrill % (Auto) 8.1, Eos % (Auto) 1.4, Baso % (Auto) 0.3, Absolute Neuts (auto) 5.8, Absolute Lymphs (auto) 0.69 L, Nucleated RBC % 0.3, Anisocytosis 1+, Sodium 135 L, Potassium 5.3 H, Chloride 112 H, Carbon Dioxide 17.0 L, Anion Gap 6, BUN 74 H, Creatinine 2.76 H, Estim Creat Clear Calc 31.45, Est GFR (MDRD) Af Amer 30 L, Est GFR (MDRD) Non-Af 25 L, BUN/Creatinine Ratio 26.8 H, Glucose 101, Calcium 8.3 L Physical Exam Narrative General: Alert, Oriented x3, Cooperative, No apparent distress HEENT: Atraumatic, PERRLA, EOMI, Normocephalic Oral: Moist Mucosa Neck: Supple, No JVD Lungs: Diminished, Normal air movement, No rhonchi, No wheeze, No rales Cardiovascular: Regular rate, Regular Rhythm, Normal S1, Normal S2, No murmurs Abdomen: Soft, Non Tender, Non-Distended, No Hepato-splenomegaly Extremities: Edema, Capillary Refill Less than 3 Seconds Skin: No rashes, No breakdown, pale Musculoskeletal: No Tenderness to Palpation of Joints or Extremities Neurological: No focal neurological deficits, moves all extremities Psych/Mental Status: Normal Affect, Appropriate Assessment & Plan Assessment/Plan (1) Acute urinary retention: PLAN: Plan 1. BPH status post TURP with urinary retention and hematuria with clots with blood loss anemia/CKD 4 ? Continue with continuous bladder irrigation ? Continue to hold Eliquis, he states that he has bioprosthetic valve in place and he is on Eliquis for A-fib so we do have the ability to hold for a while though I did make it explicit to the patient and family that we are at risk for stroke which they have understood and accepted ? Hemoglobin today is 8.3, recommend outpatient follow-up to recheck hemoglobin in 3 to 5 days ? Renal function appears at baseline continue with outpatient monitoring and management ? He does appear stable for discharge with continued Medina. Would recommend holding Eliquis for another 3 to 4 days. 2. Essential HTN/HLD/paroxysmal A-fib/history of aortic and mitral valve replacements/status post pacemaker placement/history of CVA ? Continue with his home blood pressure medications ? His statin is being held ? Will hold Eliquis while he has his hematuria 3. Hypothyroidism ? Stable ? Continue with Synthroid 4. GERD ? Stable ? Continue with PPI DVT: SCDs Will sign off Charges/Coding Visit Charges Inpatient E&M: 85629 Subs Hosp L2
--- NOTE | 2024-04-10 11:23 | DS.PCM_ITS ---
Providers Date of Admission: 04/08/24 Date of Discharge: 04/10/24 Primary Care Physician: Dr. 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 Routine Comment: Reason for Consult:: left buttocks lanced area that had packing 04/08/24 06:28 Consult: Hospitalist Routine Consulting Provider: Loki Raines Reason for Consult: medical management EMERGENT Consult: No MD Notified: Yes Date Notified: 04/08/24 Time Notified: 07:40 Method of Notification: Text Reason For Visit: Cysto,Transurethral Resection Prostate-TURP Diagnosis Discharge Diagnosis (1) Acute urinary retention: Status: Acute Code(s): R33.8 - Other retention of urine Medications at Discharge Home Medications cyanocobalamin (vitamin B-12) 500 mcg tablet 500 mcg PO QDAY SUPPLEMENT 03/27/17 acetaminophen 500 mg tablet 1,000 mg PO Q4H PRN Pain 10/27/17 pantoprazole 20 mg tablet,delayed release 40 mg PO BID reflux 03/15/18 levothyroxine 150 mcg tablet 150 mcg PO DAILY thyroid 03/31/23 cholecalciferol (vitamin D3) 75 mcg (3,000 unit) tablet 75 mcg PO DAILY SUPPLEMENT 07/09/23 thiamine HCl (vitamin B1) 100 mg tablet 100 mg PO DAILY 07/09/23 carvedilol 25 mg tablet 25 mg PO BID blood pressure #180 tabs 08/03/23 furosemide 40 mg tablet 40 mg PO QDAY #30 tabs 01/19/24 atorvastatin 20 mg tablet 20 mg PO DAILY cholesterol #90 tabs 01/26/24 apixaban 5 mg tablet (Eliquis) 5 mg PO BID blood thinner #180 tabs 02/12/24 cephalexin 500 mg capsule 500 mg PO Q6 #28 CAPSULES 04/03/24 Hospital Course Operations TURP Summary of Care Provided Minutes Spent on Discharge: 35 Hospital Course: s/p turp had bleeding post op had to go back to OR to cauterize bleeder. Physical Exam Const alert and oriented x3 General Appearance: cooperative HEENT normocephalic and head/scalp atraumatic Eyes PERRL and EOMs intact bilaterally Neck supple, no JVD and no carotid bruits Resp normal respiratory effort, normal air movement and clear to auscultation bilaterally Cardio regular rate and no murmurs GI normal to inspection, nondistended, normoactive bowel sounds and soft to palpation Extremity normal capillary refill General Extremity: no tenderness to palpation of joints or extremities; Negative for edema Skin no rashes or lesions noted and no wounds General Skin Exam: no breakdown Neuro CN's II-XII intact bilaterally Psych affect normal Appearance: appropriate Weight / BMI Weight Weight: 98 kg Body Mass Index (BMI) 26.3 ABG / Lab / Microbiology Data 04/10/24 03:51 04/10/24 03:51 Laboratory: Laboratory Results - last 24 hr 04/09/24 13:04: Hgb 8.8 L, Hct 30.0 L 04/10/24 03:51: WBC 7.2, RBC 3.11 L, Hgb 8.3 L, Hct 28.6 L, MCV 92.0, MCH 26.7 L , MCHC 29.0 L, RDW Std Deviation 67.4 H, RDW Coeff of Hugo 20.1 H, Plt Count 166, MPV 9.2, Immature Gran % (Auto) 0.400, Neut % (Auto) 80.2 H, Lymph % (Auto) 9.6 L, Brown % (Auto) 8.1, Eos % (Auto) 1.4, Baso % (Auto) 0.3, Absolute Neuts (auto) 5.8, Absolute Lymphs (auto) 0.69 L, Nucleated RBC % 0.3, Anisocytosis 1+, Sodium 135 L, Potassium 5.3 H, Chloride 112 H, Carbon Dioxide 17.0 L, Anion Gap 6, BUN 74 H, Creatinine 2.76 H, Estim Creat Clear Calc 31.45, Est GFR (MDRD) Af Amer 30 L, Est GFR (MDRD) Non-Af 25 L, BUN/Creatinine Ratio 26.8 H, Glucose 101, Calcium 8.3 L D/C Instructions Discharge Diet: No restrictions Call your doctor if you observe: Fever of 101 or Higher Catheter: Medina to leg bag and Medina to large bag Drain: [place] DC O2, CPAP, BIPAP Needs Home O2 Discharge instructions: No Please Follow Up With: Binu Brannon MD When: Call [phone] for an appointment Meaningful Use Info Meaningful Use Meaningful Use Diagnoses (Choose all that apply): None applicable Ischemic Stroke Statin Dosing Therapy Reference: STATIN DOSE THERAPY REFERENCE: * Patients > 75 years receive moderate or high dose statin therapy. * Patients 75 years or YOUNGER should receive HIGH intensity statin dose unless contraindicated. You will be required to document reason for non-treatment if statin daily dose does not meet guidelines. HIGH DOSE STATIN THERAPY DAILY Atorvastatin > than or = to 40 mg Rosuvastatin > than or = to 20 mg Amlodipine + Atorvastatin > than or = to 2.5/40 mg Ezetimibe + Simvastatin 10/80 mg Simvastatin 80mg Discharge Plan Admission Admit Date/Time: 04/08/24 16:20 Primary Reason for Your Visit: ivana Attending Provider: Binu Brannon Primary Care Provider: Tapan Cuellar Consulting Providers: Loki Raines Discharge Orders/Prescriptions Prescriptions: Continued pantoprazole 20 mg tablet,delayed release (DR/EC) 40 mg PO BID furosemide 40 mg tablet 40 mg PO QDAY Qty: 30 7RF cholecalciferol (vitamin D3) 75 mcg (3,000 unit) tablet 75 mcg PO DAILY thiamine HCl (vitamin B1) 100 mg tablet 100 mg PO DAILY acetaminophen 500 MG tablet 1,000 mg PO Q4H PRN (Reason: Pain) levothyroxine 150 mcg tablet 150 mcg PO DAILY cephalexin 500 mg capsule 500 mg PO Q6 Qty: 28 0RF cyanocobalamin (vitamin B-12) 500 mcg tablet 500 mcg PO QDAY carvedilol 25 mg tablet 25 mg PO BID Qty: 180 4RF atorvastatin 20 mg tablet 20 mg PO DAILY Qty: 90 3RF Held Eliquis 5 mg tablet 5 mg PO BID Qty: 180 4RF Hold Instructions: Resume on 04/20/24. Discontinued finasteride 5 mg tablet 5 mg PO QDAY tamsulosin 0.4 mg capsule 0.4 mg PO BID Other Ambulatory Orders: 12 Lead EKG (Routine) Timeframe: [id number] Location: None Selected Ordered By: Dr. Keith Valdes Referrals / Follow Up: Tapan Cuellar DO [Primary Care Provider] -
[2024-04-10 12:00] VITALS: BP 118/70; PULSE 65; RESP 16; TEMP 36.7; O2SAT 92
[2024-04-11 15:58] LABS: Pathologist Review Reviewed
== END 2024-04-10 13:56 | disposition home or self-care (01) | DRG 713 ==
LOC: SDC 14:54 → MS3 14:54
PROVIDERS: Anesthesiology; Family Medicine; Admitting Provider Urology; PCP Family Medicine; Referring Provider Urology; Visit Provider Urology
PROC: 0VT08ZZ Resection of Prostate, Via Natural or Artificial Opening Endoscopic (ICD-10-PCS; CPT 52601; principal; 2024-04-06 11:45)
PROC: 0TBB8ZX Excision of Bladder, Via Natural or Artificial Opening Endoscopic, Diagnostic (ICD-10-PCS; principal; 2024-04-08 19:15)
DX: N40.1 Benign prostatic hyperplasia with lower urinary tract symptoms (principal); N18.4 Chronic kidney disease, stage 4 (severe); D62 Acute posthemorrhagic anemia; N99.821 Postprocedural hemorrhage of a genitourinary system organ or structure following other procedure; E03.9 Hypothyroidism, unspecified; I12.9 Hypertensive chronic kidney disease with stage 1 through stage 4 chronic kidney disease, or unspecified chronic kidney disease; D63.1 Anemia in chronic kidney disease; D50.0 Iron deficiency anemia secondary to blood loss (chronic); Z95.3 Presence of xenogenic heart valve; I48.0 Paroxysmal atrial fibrillation; K21.9 Gastro-esophageal reflux disease without esophagitis; E78.00 Pure hypercholesterolemia, unspecified; I25.10 Atherosclerotic heart disease of native coronary artery without angina pectoris; Z79.2 Long term (current) use of antibiotics; Z79.01 Long term (current) use of 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s; Z79.890 Hormone replacement therapy; Z87.891 Personal history of nicotine dependence; Z86.73 Personal history of transient ischemic attack (TIA), and cerebral infarction without residual deficits; Z88.1 Allergy status to other antibiotic agents; Z88.2 Allergy status to sulfonamides; R33.8 Other retention of urine; Z95.0 Presence of cardiac pacemaker; Z98.84 Bariatric surgery status
CPT/HCPCS: 36415; 51702; 80048; 84443; 85014; 85018; 85025; 85027; 85610; 85730; 86850; 86900; 86901; 88305; 88341; 88342; 93005; 94668; 99406; P9016; J2405

== ENCOUNTER → 2024-04-25 | Outpatient (CLI) | payer MEDICARE, OTHER, SELFPAY ==
[2024-04-25 10:17] LABS: Hematocrit 30.4 % (40-54); Hemoglobin 8.6 g/dL (13.0-16.5); Mean Corp Hgb Conc 28.3 g/dL (32-36); Mean Corpuscular Hgb 26.8 pg (27.0-32.0); Mean Corpuscular Volume 94.7 fL (80-94); Mean Platelet Vol. 9.5 fl (6.2-12.0); POSITIVE MORPHOLOGY YES; Platelet Count 152 K/mm3 (150-450); RBC Distribution Width CV 19.1 % (11.6-14.6); RBC Distribution Width SD 65.3 fl (35.1-43.9); Red Blood Count 3.21 M/mm3 (4.6-6.2); White Blood Count 5.1 K/mm3 (4.4-11.0)
[2024-04-25 10:18] LABS: Scan Indicated on CBC? Y/N YES- FLAGS NOTED
[2024-04-25 11:00] LABS: Protein, Urine (Random) 149.7 mg/dL (<11.9); Protein:Creat Ratio 4845 mg/g CRE (0-200)
[2024-04-25 11:21] LABS: Albumin, Serum 2.8 g/dL (3.2-5.0); BUN 54 mg/dL (7-18); BUN/Creat Ratio 26.3 RATIO (10-20); Calcium,Total 8.6 mg/dL (8.5-10.1); Chloride 110 mmol/L (98-107); Creatinine, Serum 2.05 mg/dL (0.70-1.30); EST Glomerular Filtration Rate 35 mL/min (>60); Est Glom Filt Rate - Afr Amer 42 mL/min (>60); Glucose 95 mg/dL (74-106); Phosphorus 4.8 mg/dL (2.5-4.9); Potassium 4.8 mmol/L (3.5-5.1); Sodium Level 139 mmol/L (136-145)
== END | disposition home or self-care (01) ==
LOC: LAB 09:12
PROVIDERS: PCP Family Medicine; Referring Provider Internal Medicine Nephrology; Visit Provider Internal Medicine Nephrology
DX: N18.4 Chronic kidney disease, stage 4 (severe) (principal)
CPT/HCPCS: 36415; 80069; 82570; 84156; 85027

== ENCOUNTER → 2024-05-13 | Outpatient (CLI) | payer MEDICARE, OTHER, SELFPAY ==
[2024-05-13 12:41] VITALS: PULSE 100; PULSE 101; PULSE 94; PULSE 95; O2SAT 88; O2SAT 89; O2SAT 90; O2SAT 91; O2SAT 93
--- NOTE | 2024-05-13 12:47 | CPS ---
PT WALKED 796FT IN 6 MINUTES. HIS SPO2 FELL TO > 88% DURING WALK TESTING, PT DECLINED TO ADD SUPPLEMENTAL OXYGEN CURRENTLY. HE DOES NOT FEEL HE NEEDS IT AT THIS TIME AND DOES RECOVER QUICKLY WITH REST. HE DECLINED ANY REST BREAKS DURING TESTING. HE STATES HE PREVIOUSLY RETURNED HOME OXYGEN D/T LACK OF USING IT.
--- NOTE | 2024-05-16 11:37 | WT_ITS ---
PSN 6 Minute Walk Test 6 Minute Walk Test 6 Minute Walk Test: 6 Minute Walk Test PSN:6-Minute Walk Test Start: 05/13/24 12:41 Freq: Status: Active Protocol: RESP.6MINW Document 05/13/24 12:41 [facility] (Rec: 05/13/24 12:50 [facility] [id number]) 6 Minute Walk Test Date Performed 05/13/24 Time Performed 12:15 Height 6 ft 4 in Weight: 213 lb Weight in Pounds 213.[address]: Jonel Hernandez Assistive device None used: Pre-test Oxygen Delivery Room Air Method Pulse Ox (%) 91 Pulse Rate (60-100 95 beats/min) Dyspnea Juanito Scale ( 0 0-10) 1st minute Oxygen Delivery Room Air Method Pulse Ox (%) 90 Pulse Rate (60-100 100 beats/min) Dyspnea Juanito Scale ( 0 0-10) Number of Rests 0 Taken 2nd minute Oxygen Delivery Room Air Method Pulse Ox (%) 89 Pulse Rate (60-100 101 H beats/min) Dyspnea Juanito Scale ( 0 0-10) Number of Rests 0 Taken 3rd minute Oxygen Delivery Room Air Method Pulse Ox (%) 88 Pulse Rate (60-100 100 beats/min) Dyspnea Juanito Scale ( 0 0-10) Number of Rests 0 Taken 4th minute Oxygen Delivery Room Air Method Pulse Ox (%) 88 Pulse Rate (60-100 101 H beats/min) Dyspnea Juanito Scale ( 0 0-10) Number of Rests 0 Taken 5th minute Oxygen Delivery Room Air Method Pulse Ox (%) 88 Pulse Rate (60-100 100 beats/min) Dyspnea Juanito Scale ( 0 0-10) Number of Rests 0 Taken 6th minute Oxygen Delivery Room Air Method Pulse Ox (%) 89 Pulse Rate (60-100 101 H beats/min) Dyspnea Juanito Scale ( 0 0-10) Number of Rests 0 Taken Post-test Oxygen Delivery Room Air Method Pulse Ox (%) 93 Pulse Rate (60-100 94 beats/min) Dyspnea Juanito Scale ( 0 0-10) Full Laps Walked 13 Partial Lap, Number 29 of Tiles Walked Total Distance 796 Walked (ft) 05/13/24 12:47 Cardiopulmonary Services by Mary Pascual PT WALKED 796FT IN 6 MINUTES. HIS SPO2 FELL TO > 88% DURING WALK TESTING, PT DECLINED TO ADD SUPPLEMENTAL OXYGEN CURRENTLY. HE DOES NOT FEEL HE NEEDS IT AT THIS TIME AND DOES RECOVER QUICKLY WITH REST. HE DECLINED ANY REST BREAKS DURING TESTING. HE STATES HE PREVIOUSLY RETURNED HOME OXYGEN D/T LACK OF USING IT. Initialized on 05/13/24 12:47 - END OF NOTE Interpretation Interpretation: The patient ambulated 796 feet over the course of 6 minutes beginning on room air without assistive devices. Pretesting oxygen saturation was noted to be 91% on room air. With ambulation, the karina oxygen saturation was 88%. However, the patient declined to allow for supplemental oxygen to be applied. Recommendations Recommendations: Supplemental oxygen is required with exertion. However, the patient declined to allow for supplemental oxygen to be applied during testing.
== END | disposition home or self-care (01) ==
LOC: PSN 12:14
PROVIDERS: PCP Family Medicine; Referring Provider Internal Medicine Critical Care Medicine; Visit Provider Internal Medicine Critical Care Medicine
DX: F17.211 Nicotine dependence, cigarettes, in remission (principal)
CPT/HCPCS: 94618

== ENCOUNTER → 2024-05-17 | Outpatient (CLI) | payer MEDICARE, OTHER, SELFPAY | END | disposition home or self-care (01) | LOC: PSN 08:34 | PROVIDERS: PCP Family Medicine; Referring Provider Internal Medicine Critical Care Medicine; Visit Provider Internal Medicine Critical Care Medicine | DX: F17.211 Nicotine dependence, cigarettes, in remission (principal) | CPT/HCPCS: 94060; 94726; 94729 ==

== ENCOUNTER → 2024-06-15 | Outpatient (CLI) | payer MEDICARE, OTHER, SELFPAY | END | disposition home or self-care (01) | LOC: LABSPEC 13:34 | PROVIDERS: PCP Family Medicine; Referring Provider Surgery; Visit Provider Surgery | DX: L02.31 Cutaneous abscess of buttock (principal) | CPT/HCPCS: 87070; 87075; 87077; 87205 ==

== ENCOUNTER → 2024-07-15 | Outpatient (CLI) | payer MEDICARE, OTHER, SELFPAY ==
[2024-07-15 11:07] LABS: Hematocrit 33.6 % (40-54); Hemoglobin 10.1 g/dL (13.0-16.5); Mean Corp Hgb Conc 30.1 g/dL (32-36); Mean Corpuscular Hgb 29.3 pg (27.0-32.0); Mean Corpuscular Volume 97.4 fL (80-94); Mean Platelet Vol. 9.9 fl (6.2-12.0); Platelet Count 139 K/mm3 (150-450); RBC Distribution Width CV 17.2 % (11.6-14.6); RBC Distribution Width SD 61.1 fl (35.1-43.9); Red Blood Count 3.45 M/mm3 (4.6-6.2); White Blood Count 5.9 K/mm3 (4.4-11.0)
[2024-07-15 11:32] LABS: Protein, Urine (Random) 10.5 mg/dL (0.0-12.0); Protein:Creat Ratio 234 mg/g CRE (0-200)
[2024-07-15 12:35] LABS: PSA,Total- Diagnostic 0.21 ng/mL (0.00-4.00); Phosphorus 5.2 mg/dL (2.7-4.5)
[2024-07-15 12:57] LABS: Albumin, Serum 3.4 g/dL (3.4-4.8); Anion Gap 13 (5-15); BUN 52 mg/dL (4-19); BUN/Creat Ratio 21.8 RATIO (10-20); Calcium,Total 8.1 mg/dL (7.6-11.0); Carbon Dioxide 18.7 mmol/L (21.0-32.0); Chloride 109 mmol/L (98-108); Creatinine, Serum 2.37 mg/dL (0.70-1.20); EST Glomerular Filtration Rate 29 (>60); Glucose 98 mg/dL (70-99); Potassium 5.3 mmol/L (3.3-5.1); Sodium Level 141 mmol/L (133-145)
== END | disposition home or self-care (01) ==
LOC: LAB 10:17
PROVIDERS: PCP Family Medicine; Referring Provider Internal Medicine Nephrology; Visit Provider Internal Medicine Nephrology
DX: N18.4 Chronic kidney disease, stage 4 (severe) (principal); C61 Malignant neoplasm of prostate
CPT/HCPCS: 36415; 80069; 82570; 84153; 84156; 85027

== ENCOUNTER → 2024-08-12 | Outpatient (CLI) | payer MEDICARE, OTHER, SELFPAY ==
[2024-08-12 14:49] LABS: Absolute Lymphocyte Count 0.96 X10^3/uL (0.83-4.51); Absolute Neutrophil Count 2.7 X10^3/uL (2.0-7.7); Basophil# 0.04 X10^3/uL; Eosinophils% 2.4 % (0-5); Hemoglobin 10.1 g/dL (13.0-16.5); Lymphocyte # 0.96 X10^3/ul (0.83-4.51); Lymphocyte % 22.8 % (19-41); Mean Corp Hgb Conc 30.6 g/dL (32-36); Mean Corpuscular Hgb 30.4 pg (27.0-32.0); Mean Corpuscular Volume 99.4 fL (80-94); Mean Platelet Vol. 9.5 fl (6.2-12.0); Monocyte# 0.36 X10^3/uL; Monocyte% 8.6 % (0-10); NRBC Flagged by Analyzer 0 % (0-5); Neutrophil # 2.74 X10^3/uL (2.7-7.7); Platelet Count 156 K/mm3 (150-450); RBC Distribution Width CV 16.4 % (11.6-14.6); RBC Distribution Width SD 59.3 fl (35.1-43.9); Red Blood Count 3.32 M/mm3 (4.6-6.2); White Blood Count 4.2 K/mm3 (4.4-11.0)
[2024-08-12 15:10] LABS: International Normalized Ratio 1.4; Prothrombin Time (Protime)PT. 17.7 SECONDS (11.7-14.9)
[2024-08-12 15:59] LABS: Hemoglobin A1c 5.2 % (<=5.6)
[2024-08-12 16:42] LABS: ALB/GLOB Ratio 0.9 RATIO (0.9-2.4); AST(SGOT) 18 U/L (<=37); Alanine Aminotransfer ALT/SGPT 9 U/L (<=46); Albumin, Serum 3.8 g/dL (3.4-4.8); Alkaline Phosphatase 230 U/L (40-129); Anion Gap 11 (5-15); BUN 51 mg/dL (4-19); BUN/Creat Ratio 20.8 RATIO (10-20); Carbon Dioxide 21.3 mmol/L (21.0-32.0); Chloride 109 mmol/L (98-108); Cholesterol 85 mg/dL (<=200); Creatinine, Serum 2.47 mg/dL (0.70-1.20); EST Glomerular Filtration Rate 28 (>60); Ferritin 71 ng/mL (37-417); Globulin 4.3 g/dL (2.2-4.2); Glucose 98 mg/dL (70-99); High Density Lipoprotein 48 mg/dL; Low Density Lipoprotein Calc. 26 mg/dL; Potassium 5.3 mmol/L (3.3-5.1); Protein, Total 8.1 g/dL (5.9-8.4); Sodium Level 142 mmol/L (133-145); Total Bilirubin 0.42 mg/dL (0.00-1.30); Triglycerides 57 mg/dL; Very Low Density Lipoprotein 11 mg/dL (5-40); cholesterol:hdl ratio screen 1.79
[2024-08-12 17:11] LABS: CRP 4.28 mg/L (0.0-3.0); Iron 37 ug/dL (65-175); LDH 181 U/L (87-241)
[2024-08-14 08:08] LABS: AFP, Tumor Marker < 1.8 ng/mL (0.0-8.4)
== END | disposition home or self-care (01) ==
LOC: LAB 13:21
PROVIDERS: PCP Family Medicine; Referring Provider Internal Medicine; Visit Provider Family Medicine
DX: R23.3 Spontaneous ecchymoses (principal); R73.03 Prediabetes; K80.20 Calculus of gallbladder without cholecystitis without obstruction; D50.9 Iron deficiency anemia, unspecified; I35.0 Nonrheumatic aortic (valve) stenosis; K76.89 Other specified diseases of liver; R16.0 Hepatomegaly, not elsewhere classified; E78.5 Hyperlipidemia, unspecified
CPT/HCPCS: 80053; 80061; 82105; 82728; 83036; 83540; 83615; 85025; 85610; 86140

== ENCOUNTER → 2024-08-23 | Outpatient (CLI) | payer MEDICARE, OTHER, SELFPAY | END | disposition home or self-care (01) | LOC: LABSPEC 12:51 | PROVIDERS: PCP Family Medicine; Referring Provider Dermatology; Visit Provider Dermatology | DX: L40.0 Psoriasis vulgaris (principal); L72.8 Other follicular cysts of the skin and subcutaneous tissue | CPT/HCPCS: 87070; 87205 ==

== ENCOUNTER → 2024-09-02 | Outpatient (CLI) | payer MEDICARE, OTHER, SELFPAY ==
--- NOTE | 2024-09-02 07:46 | US_ITS ---
PROCEDURE: ABD LIMITED W/ ELASTOGRAPHY REASON FOR EXAM: CHOLELITHIASIS, GILBERT HEPATIS MASS?, LN? COMPARISON: Prior study dated June 05, 2023. TECHNIQUE: Right upper quadrant abdominal ultrasound. [employer] ElastQ Imaging shear wave elastography for non-invasive assessment of liver tissue stiffness. Franko EPIQ Elite. FINDINGS: LIVER: Size: Unremarkable Length: 16.8 cm Echotexture: Diffusely echogenic suggesting fatty infiltration Contour: Normal Lesions: There is a 3 cm x 3.4 cm 2.9 cm lymph node in the region of the gilbert hepatis. Elastography: EQI Med: 11.4 kPa EQI Med Abdifatah: 1.93 m/s IQR/Med: 21.5 %* GALLBLADDER: Multiple echogenic gallstones are identified. COMMON BILE DUCT: Dilated measuring up to 9.5 mm . PANCREAS: Normal Visualized portions of the right kidney are unremarkable. No right upper quadrant ascites. US/ABD Limited w/ Elastography IMPRESSION: MODERATE TO SEVERE HEPATIC FIBROSIS Fatty infiltration of the liver. Multiple gallstones. Findings suggestive of a 3 cm x 3.4 cm 2.9 cm lymph node in the region of the p danni hepatis. Reference Values: SRU <1.37 m/s (5.7kPa): No to mild fibrosis 1.37 m/s - 2.2 m/s: Moderate to severe fibrosis >2.2 m/s (15kPa): Significant fibrosis / cirrhosis METAVIR Score F2 or higher: 1.34 m/s (5.7kPa) F3 or higher: 1.55 m/s (7.3kPa) F4: 1.80 m/s (10kPa) * If the IQR/Med is >30%, the variance in the measurements is a large and the a ccuracy of the measurement may be in question. Reading Location: [facility]
== END | disposition home or self-care (01) ==
LOC: US 07:40
PROVIDERS: PCP Family Medicine; Referring Provider Internal Medicine; Visit Provider Internal Medicine
DX: K80.20 Calculus of gallbladder without cholecystitis without obstruction (principal); D50.9 Iron deficiency anemia, unspecified
CPT/HCPCS: 76705; 76981

== ENCOUNTER → 2024-09-19 | Outpatient (CLI) | payer MEDICARE, OTHER, SELFPAY ==
[2024-09-19 09:57] LABS: Bacteria 0 SEEN /hpf (None Seen); Mucous, Urine 0 SEEN /hpf (<or=2+); Red Blood Cells-Urine 0 SEEN /hpf (0-5); Squamous Epithelial Cells - UA 0 SEEN /hpf (0-5); White Blood Cells 0 SEEN /hpf (0-5)
[2024-09-19 10:25] LABS: Color, Urine Yellow (Yellow); Glucose, Dipstick Normal (Normal); Ketone-Dipstick Negative (Negative); Leukocyte Esterase-Dipstick Negative /ul (Negative); Nitrite-Dipstick Negative (Negative); Occult Blood-Urine Negative /ul (Negative); Protein-Dipstick 30 mg/dl (Negative); Urine Bilirubin Dipstick Negative (Negative); Urine Clarity Clear (Clear); Urine Urobilinogen Normal (Normal); Urine pH 6.5 (5.0 - 8.0)
[2024-09-19 10:30] LABS: Hematocrit 32.7 % (40-54); Hemoglobin 9.7 g/dL (13.0-16.5); Mean Corp Hgb Conc 29.7 g/dL (32-36); Mean Corpuscular Hgb 30.1 pg (27.0-32.0); Mean Corpuscular Volume 101.6 fL (80-94); Platelet Count 115 K/mm3 (150-450); RBC Distribution Width CV 15.9 % (11.6-14.6); RBC Distribution Width SD 59.7 fl (35.1-43.9); Red Blood Count 3.22 M/mm3 (4.6-6.2); White Blood Count 4.9 K/mm3 (4.4-11.0)
[2024-09-19 10:34] LABS: International Normalized Ratio 1.5; Prothrombin Time (Protime)PT. 18.2 SECONDS (11.7-14.9)
[2024-09-19 11:04] LABS: Anion Gap 13 (5-15); BUN 76 mg/dL (4-19); BUN/Creat Ratio 29.4 RATIO (10-20); Calcium,Total 8.5 mg/dL (7.6-11.0); Carbon Dioxide 21.6 mmol/L (21.0-32.0); Chloride 107 mmol/L (98-108); Creatinine, Serum 2.57 mg/dL (0.70-1.20); EST Glomerular Filtration Rate 26 (>60); Glucose 97 mg/dL (70-99); Potassium 5.5 mmol/L (3.3-5.1); Sodium Level 141 mmol/L (133-145)
== END | disposition home or self-care (01) ==
LOC: LAB 09:49
PROVIDERS: PCP Family Medicine; Referring Provider Nurse Practitioner Gerontology; Visit Provider Nurse Practitioner Gerontology
DX: I97.89 Other postprocedural complications and disorders of the circulatory system, not elsewhere classified (principal); I44.2 Atrioventricular block, complete; I48.91 Unspecified atrial fibrillation; Z95.0 Presence of cardiac pacemaker
CPT/HCPCS: 36415; 80048; 81001; 85027; 85610

== ENCOUNTER → 2024-09-26 | Outpatient (CLI) | payer MEDICARE, OTHER, SELFPAY ==
[2024-09-26 10:52] LABS: AST(SGOT) 22 U/L (<=37); Alanine Aminotransfer ALT/SGPT 13 U/L (<=46); Albumin, Serum 3.8 g/dL (3.4-4.8); Alkaline Phosphatase 158 U/L (40-129); Anion Gap 16 (5-15); BUN 64 mg/dL (4-19); BUN/Creat Ratio 24.4 RATIO (10-20); Bilirubin, Direct 0.19 mg/dL (0.00-0.30); Calcium,Total 7.9 mg/dL (7.6-11.0); Carbon Dioxide 21.8 mmol/L (21.0-32.0); Chloride 105 mmol/L (98-108); Cholesterol 112 mg/dL (<=200); Globulin 3.7 g/dL (2.2-4.2); Glucose 150 mg/dL (70-99); Low Density Lipoprotein Calc. 44 mg/dL; Potassium 3.8 mmol/L (3.3-5.1); Triglycerides 66 mg/dL; Very Low Density Lipoprotein 13 mg/dL (5-40); cholesterol:hdl ratio screen 2.03
== END | disposition home or self-care (01) ==
LOC: LAB 09:25
PROVIDERS: PCP Family Medicine; Referring Provider Nurse Practitioner Gerontology; Visit Provider Nurse Practitioner Gerontology
DX: I25.10 Atherosclerotic heart disease of native coronary artery without angina pectoris (principal); E78.5 Hyperlipidemia, unspecified; E87.5 Hyperkalemia
CPT/HCPCS: 36415; 80048; 80061; 80076

== ENCOUNTER → 2024-10-11 | Day surgery (SDC) | payer MEDICARE, OTHER, SELFPAY ==
[2024-10-10 09:51] VITALS: BMI 35.9
--- NOTE | 2024-10-11 12:13 | EX.PACEMAKER ---
Pacemaker Procedure Note Pacemaker Procedure Note Frank White is a 69 year old male who has a past medical history of multiple cardiac surrgerie for endocarditis with epicardial leads in a OPERATIONAL ASSISTANT-P device with an abdominal generator, who presented to the [place] [facility] lab for further evaluation regarding a generator changeout. The patient was brought to the electrophysiology laboratory in a fasting state. Sedation provided by nursing staff. The abdomen was prepped in a steril fashion. Lidoncaine was injected locally. Dissection was carried out to the level of the pulse generator. The device was removed from the pocket. Leads were disconnected and connected to the new pulse generator. The device was noted to function appropriately. The pocket was noted to have an absence of active bleeding. The pulse generator was placed in the pocket and sutured to the pre-pectoral fascia. The pocket was then irrigated with antibiotic solution. The incision was closed with a layer of interrupted 2-0 Vicryl two layers of 2-0 Vicryl and a subcuticular closure of 4-0 Vicryl. The incision was dressed with Aquacel. Tyrx pouch was utilized. Conclusions Successful OPERATIONAL ASSISTANT-P generator changeout with adequate pacing threshold, sensing and lead impedance. Recommendations 1. Routine follow-up in the device clinic. 2. Remove outer dressing after 48 hours. Leave steri-strips intact for 7-10 days, then remove if it does not fall off by itself. 3. Device follow up as scheduled. 4. Hold anticoagulation for 72 hours (No heparin IV or NOAC, ok to continue warfarin). 5. The patient can continue to follow-up with [facility].
== END | disposition home or self-care (01) ==
LOC: CLSP 08:59
PROVIDERS: PCP Family Medicine; Referring Provider Internal Medicine; Visit Provider Internal Medicine
DX: Z45.010 Encounter for checking and testing of cardiac pacemaker pulse generator [battery] (principal); I48.0 Paroxysmal atrial fibrillation; N18.32 Chronic kidney disease, stage 3b; Z95.2 Presence of prosthetic heart valve; I25.10 Atherosclerotic heart disease of native coronary artery without angina pectoris; E78.00 Pure hypercholesterolemia, unspecified; R06.09 Other forms of dyspnea; Z87.891 Personal history of nicotine dependence; Z95.3 Presence of xenogenic heart valve; I35.0 Nonrheumatic aortic (valve) stenosis; Z98.890 Other specified postprocedural states; Z79.01 Long term (current) use of 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s; Z79.899 Other long term (current) drug therapy
CPT/HCPCS: 33229; 33264; 99152; 99153

== ENCOUNTER → 2024-11-07 | Outpatient (CLI) | payer MEDICARE, OTHER, SELFPAY ==
--- NOTE | 2024-11-07 12:41 | ECHOD_ITS ---
Reason For Study Reason For Study: VALVE REPLACMENT Procedure This was a 2D Doppler, Color Flow transthoracic echocardiogram. Exam performed in department. Left Ventricle Normal LV size. The estimated ejection fraction is 50 %. [place] : Hypokinetic. Right Ventricle Normal RV size. Normal systolic function. Atria The left atrium is severely enlarged. The right atrium is moderately enlarged. Mitral Valve Bileaflet diffuse mitral valve thickening. Mild-Moderate (1-2+) eccentric mitral valve insufficiency. Tricuspid Valve Normal tricuspid valve. Mild to moderate (1-2+) tricuspid valve insufficiency. Pulmonary artery systolic pressure is 38 mmHg. Aortic Valve Peak aortic valve gradient 20 mmHg. Mean aortic valve gradient 11 mmHg. Mild (1+) eccentric aortic valve insufficiency. Bioprosthetic aortic valve. Pulmonic Valve Normal pulmonic valve. Great Vessels Normal aortic root. The pulmonary artery is normal size. Inferior vena cava collapse with respiration. Pericardium/Pleural No pericardial effusion. Medication 22 gauge I.V. with prn adaptor inserted into right arm. Performed a rapid injection of agitated mix of 9 cc saline and 1cc air to assess for atrial septal defect. MMode/2D Measurements & Calculations LVIDd: 5.9 cm IVSd: 1.3 cm LVOT diam: 2.0 cm LVIDs: 3.1 cm LVPWd: 1.2 cm RVDd: 4.9 cm FS: 46.9 % LVOT area: 3.0 cm2 Ao root diam: 3.8 cm LAV(MOD-bp): 116.0 ml LVAd ap4: 36.2 cm2 LAV(MOD-bp) Indexed: 50.8 ml/m2 LVLd ap4: 8.5 cm LAV(MOD-sp2): 108.9 ml EDV(MOD-sp4): 127.7 ml LAV(MOD-sp4): 113.6 ml EDV(sp4-el): 130.4 ml LVAs ap4: 24.0 cm2 LVLs ap4: 7.9 cm ESV(MOD-sp4): 61.0 ml ESV(sp4-el): 61.8 ml EF(MOD-sp4): 52.2 % EF(sp4-el): 52.6 % SV(MOD-sp4): 66.7 ml SV(sp4-el): 68.6 ml LA A4 area: 33.9 cm2 SI(MOD-sp4): 29.2 ml/m2 LA dimension(2D): 5.6 cm RA A4 area: 25.2 cm2 Time Measurements MV dec time: 0.22 sec Doppler Measurements & Calculations MV E max abdifatah: 154.7 cm/sec Lat Peak E' Abdifatah: 10.4 cm/sec Med Peak E' Abdifatah: 6.7 cm/sec MV A max abdifatah: 51.8 cm/sec E/E' lat: 14.8 E/E' med: 23.2 MV E/A: 3.0 MV V2 max: 197.3 cm/sec MV dec slope: 708.3 cm/sec2 Ao V2 max: 222.5 cm/sec MV max P.6 mmHg Ao max P.8 mmHg MV V2 mean: 92.5 cm/sec Ao V2 mean: 152.4 cm/sec MV mean P.4 mmHg Ao mean P.6 mmHg MV V2 VTI: 49.4 cm Ao V2 VTI: 47.0 cm MVA(VTI): 1.8 cm2 AV (velocity ratio): 0.64 JANEL(I,D): 1.9 cm2 JANEL(V,D): 2.1 cm2 AI max abdifatah: 496.0 cm/sec LV V1 max: 152.2 cm/sec SV(LVOT): 90.0 ml AI max P.5 mmHg LV V1 max P.3 mmHg LV V1 mean P.3 mmHg AI dec slope: 201.1 cm/sec2 LV V1 mean: 107.8 cm/sec AI P1/2t: 722.3 msec LV V1 VTI: 29.9 cm PA V2 max: 93.4 cm/sec TR max abdifatah: 292.6 cm/sec PA V2 mean: 63.8 cm/sec TR max P.3 mmHg ECHO/Echo Complete Interpretation Summary Normal LV size. The estimated ejection fraction is 50 %. [place] : Hypokinetic. Mild-Moderate (1-2+) eccentric mitral valve insufficiency. Bioprosthetic aortic valve. Mean aortic valve gradient 11 mmHg. Ordering Physician: Nguyen Montemayor Referring Physician: Nguyen Montemayor Performed By: Ilana Rehman RCS
== END | disposition home or self-care (01) ==
LOC: CVS 12:41
PROVIDERS: PCP Family Medicine; Referring Provider Nurse Practitioner Gerontology; Visit Provider Nurse Practitioner Gerontology
DX: I35.0 Nonrheumatic aortic (valve) stenosis (principal); Z95.3 Presence of xenogenic heart valve; Z98.890 Other specified postprocedural states
CPT/HCPCS: 93306

== ENCOUNTER → 2024-11-16 | Outpatient (CLI) | payer MEDICARE, OTHER, SELFPAY ==
[2024-11-16 15:33] LABS: Hematocrit 32.0 % (40-54); Hemoglobin 9.6 g/dL (13.0-16.5); Mean Corp Hgb Conc 30.0 g/dL (32-36); Mean Corpuscular Volume 99.7 fL (80-94); Mean Platelet Vol. 10.0 fl (6.2-12.0); Platelet Count 134 K/mm3 (150-450); RBC Distribution Width CV 15.3 % (11.6-14.6); RBC Distribution Width SD 56.2 fl (35.1-43.9); Red Blood Count 3.21 M/mm3 (4.6-6.2); White Blood Count 5.0 K/mm3 (4.4-11.0)
[2024-11-16 15:49] LABS: Anion Gap 8 (5-15); BUN 55 mg/dL (4-19); BUN/Creat Ratio 23.8 RATIO (10-20); Calcium,Total 9.0 mg/dL (7.6-11.0); Carbon Dioxide 24.2 mmol/L (21.0-32.0); Chloride 107 mmol/L (98-108); Glucose 85 mg/dL (70-99); Potassium 5.9 mmol/L (3.3-5.1)
== END | disposition home or self-care (01) ==
LOC: LAB 14:28
PROVIDERS: PCP Family Medicine; Referring Provider Internal Medicine Infectious Disease; Visit Provider Internal Medicine Infectious Disease
DX: L02.91 Cutaneous abscess, unspecified (principal)
CPT/HCPCS: 36415; 80048; 85027

== ENCOUNTER → 2024-11-17 | Outpatient (CLI) | payer MEDICARE, OTHER, SELFPAY ==
[2024-11-17 12:04] LABS: Hematocrit 31.7 % (40-54); Hemoglobin 9.1 g/dL (13.0-16.5); Mean Corp Hgb Conc 28.7 g/dL (32-36); Mean Corpuscular Volume 102.6 fL (80-94); Mean Platelet Vol. 10.0 fl (6.2-12.0); Platelet Count 129 K/mm3 (150-450); RBC Distribution Width CV 15.5 % (11.6-14.6); RBC Distribution Width SD 57.9 fl (35.1-43.9); Red Blood Count 3.09 M/mm3 (4.6-6.2); White Blood Count 4.2 K/mm3 (4.4-11.0)
[2024-11-17 12:45] LABS: Anion Gap 12 (5-15); BUN 54 mg/dL (4-19); BUN/Creat Ratio 22.7 RATIO (10-20); Calcium,Total 9.0 mg/dL (7.6-11.0); Carbon Dioxide 20.0 mmol/L (21.0-32.0); Chloride 106 mmol/L (98-108); Glucose 221 mg/dL (70-99); Potassium 5.9 mmol/L (3.3-5.1)
[2024-11-17 13:22] LABS: Creatinine, Urine (random) 60.50 mg/dL (39.00-259.00)
[2024-11-17 13:23] LABS: Protein, Urine (Random) 26.0 mg/dL (0.0-12.0); Protein:Creat Ratio 430 mg/g CRE (0-200)
== END | disposition home or self-care (01) ==
PROVIDERS: PCP Family Medicine; Referring Provider Internal Medicine Nephrology; Visit Provider Internal Medicine Nephrology
DX: N18.4 Chronic kidney disease, stage 4 (severe) (principal)
CPT/HCPCS: 36415; 80048; 82570; 84156; 85027

== ENCOUNTER → 2024-12-08 | Outpatient (CLI) | payer MEDICARE, OTHER, SELFPAY ==
[2024-12-08 12:57] LABS: Albumin, Serum 3.6 g/dL (3.4-4.8); Anion Gap 14 (5-15); BUN 47 mg/dL (4-19); BUN/Creat Ratio 21.8 RATIO (10-20); Calcium,Total 8.7 mg/dL (7.6-11.0); Carbon Dioxide 18.8 mmol/L (21.0-32.0); Chloride 107 mmol/L (98-108); Glucose 103 mg/dL (70-99); Potassium 4.7 mmol/L (3.3-5.1)
== END | disposition home or self-care (01) ==
LOC: LAB 12:08
PROVIDERS: PCP Family Medicine; Referring Provider Internal Medicine Nephrology; Visit Provider Internal Medicine Nephrology
DX: N18.4 Chronic kidney disease, stage 4 (severe) (principal)
CPT/HCPCS: 36415; 80069

== ENCOUNTER → 2025-01-11 | Outpatient (CLI) | payer MEDICARE, OTHER, SELFPAY ==
[2025-01-11 12:08] LABS: Hematocrit 29.0 % (40-54); Hemoglobin 8.5 g/dL (13.0-16.5); Immature Granulocytes Count 0.020 X10^3/uL (0.0-0.0); Mean Corp Hgb Conc 29.3 g/dL (32-36); Mean Corpuscular Volume 100.0 fL (80-94); Mean Platelet Vol. 10.0 fl (6.2-12.0); NRBC Flagged by Analyzer 0 % (0-5); Platelet Count 125 K/mm3 (150-450); RBC Distribution Width CV 16.4 % (11.6-14.6); RBC Distribution Width SD 60.2 fl (35.1-43.9); Red Blood Count 2.90 M/mm3 (4.6-6.2); White Blood Count 3.3 K/mm3 (4.4-11.0)
[2025-01-11 13:16] LABS: AST(SGOT) 30 U/L (<=37); Alanine Aminotransfer ALT/SGPT 22 U/L (<=46); Albumin, Serum 3.9 g/dL (3.4-4.8); Alkaline Phosphatase 206 U/L (40-129); Bilirubin, Direct 0.22 mg/dL (0.00-0.30); Globulin 3.8 g/dL (2.2-4.2); Hepatitis B Surface Antigen Nonreactive (Nonreactive); Hepatitis C Antibody Nonreactive (Nonreactive)
[2025-01-14 08:09] LABS: QNTFERON TB Mitogen Value > 10.00 IU/mL (.); QNTFERON TB Nil Value 0.04 IU/mL (.); QNTFERON TB1+ Ag Value 0.05 IU/mL (.); QNTFERON TB2+ Ag Value 0.05 IU/mL (.); QNTIFERON TB Positive Criteria Negative (Negative)
== END | disposition home or self-care (01) ==
LOC: LAB 11:07
PROVIDERS: PCP Family Medicine; Referring Provider Dermatology; Visit Provider Dermatology
DX: Z79.899 Other long term (current) drug therapy (principal)
CPT/HCPCS: 36415; 80076; 85025; 86480; 86704; 86706; 86803; 87340

== ENCOUNTER → 2025-02-17 | Outpatient (CLI) | payer MEDICARE, OTHER, SELFPAY ==
--- OUTSIDE RECORDS SUMMARY | 2025-02-17 10:40 | XMS RPT_ITS | CCD ---
Author Organization [facility] Care Team Providers Care Legal Internship Name Role Phone Bruna Antonio RN Unavailable Unavailable RUSHIMÓNICA, JULIETH D Unavailable Unavailable RUSHING, JULIETH D Unavailable Unavailable KIP, GRACY A Unavailable Unavailable CONSULT, CARDIOLOGY - EP Unavailable Unavail able JULIETH BARRIENTOS D Unavailable Unavailable RUSHING, JULIETH D Unavailable Unavailable KIP, GRACY A Unavailable Unavailable HEAD, BHAVIK Unavailable Unavailable RUSHING, JULIETH D Unavailable Unavailable KIP, GRACY A Unavailable Unavailable HEAD, BHAVIK Unavailable Unavailable RUSHING, JULIETH D Unavailable Unavailable KIP, GRACY A Unavailable Unavailable AUGOSTINI, MARY Unavailable Unavailable AUGOSTINI, MARY Unavailable Unavailable KIP, GRACY A Unavailable Unavailable AUGOSTINI, MARY Unavailable Unavailable AUGOSTINI, MARY Unavailable Unavailable KIP, GRACY A Unavailable Unavailable AUGOSTINI, MARY Unavailable Unavailable AUGOSTINI, MARY Unavailable Unavailable KIP, GRACY A Unavailable Unavailable AUGOSTINI, MARY Unavailable Unavailable AUGOSTINI, MARY Unavailable Unavailable KIP, GRACY A Unavailable Unavailable AUGOSTINI, MARY Unavailable Unavailable AUGOSTINI, MARY Unavailable Unavailable KIP, GRACY A Unavailable Unavailable HOUMSSE, MAHMOUD Unavailable Unavailable KIP, GRACY A Unavailable Unavailable KIP, GRACY A Unavailable Unavailable AUGOSTINI, MARY Unavailable Unavailable AUGOSTINI, MARY Unavailable Unavailable KIP, GARCY A Unavailable Unavailable KIP, GRACY A Unavailable Unavailable KIP, GRACY A Unavailable Unavailable KIP, GRACY A Unavailable Unavailable HOUMSSE, MAHMOUD Unavailable Unavailable KIP, GRACY A Unavailable Unavailable KIP, GRACY A Unavailable Unavailable RUSHING, JULIETH D Unavailable Unavailable KIP, GRACY A Unavailable Unavailable KIP, GRACY A Unavailable Unavailable KIP, GRACY A Unavailable Unavailable HOUMSSE, MAHMOUD Unavailable Unavailable HOUMSSE, MAHMOUD Unavailable Unavailable KIPGRACY SHAH A Unavailable Unavailable HOUMSSE, MAHMOUD Unavailable Unavailable HOUMSSE, MAHMOUD Unavailable Unavailable GRACY SHIN A Unavailable Unavailable DEANA, MARÍA B Unavailable Unavailable DEANA, MARÍA B Unavailable Unavailable IMCA Unavailable Unavailable GELLISKIN Unavailable Unavailable GACAD, DEVONTE Unavailable Unavailable GACAD, DEVONTE Unavailable Unavailable CARL, HUSEYIN C Unavailable Unavailable CARL, HUSEYIN C Unavailable Unavailable MARITZA MACIEL Admitting Unavailable MARITZA MACIEL Attending Unavailable Dr. Gracy Shin Primary Care Provider [phone] Dr. Ambrocio Whitaker Attending Provider [phone] Dr. Ambrocio Whitaker Referring Provider [phone] Dr. Gracy Shin Referring Provider Ely ORE FEEDER, ORE FEEDER-C Sherlyn Attending Provider MARÍA Burroughs Attending Provider MARÍA Shen Attending Provider MARÍA Dillon Attending Provider Dr. Carlin Wilde Attending Provider [phone] MARÍA Dillon Referring Provider Dr. Gracy Shin Primary Care Provider [phone] Radha Guzman Attending Provider Unavailable Dr. Gracy Shin Primary Care Provider [phone] Dr. Ambrocio Whitaker Attending Provider [phone] Dr. Ambrocio Whitaker Referring Provider [phone] Dr. Gracy Shin Referring Provider MARÍA Burroughs Attending Provider Dr. Kev Denny Attending Provider Dr. Gracy Shin Primary Care Provider [phone] Carlin Wilde Attending Provider [phone] Dr. Carlin Wilde Referring Provider Dr. Gracy Shin Primary Care Provider Dr. Gracy Shin Referring Provider Radha Guzman Attending Provider Unavailable CORIN Sagastume Attending Provider Referred, Self Referring Provider Unavailable Dr. Johann Boss Emergency Provider Dr. Noemí Vela Attending Provider Dr. Noemí Vela Admit Provider Dr. Noemí Vela Other Provider Dr. Larry Dunbar Other Provider [phone] Al Ramirez Other Provider Dr. César Fay Attending Provider Dr. Larry Dunbar Attending Provider Dr. Gracy Shin Primary Care Provider Dr. Carlin Wilde Attending Provider Dr. Carlin Wilde Referring Provider Dr. Larry Dunbar Referring Provider Dr. Gracy Shin Primary Care Provider Dr. Carlin Wilde Attending Provider Dr. Carlin Wilde Referring Provider CORIN Sagastume Attending Provider Referred, Self Referring Provider Unavailable Dr. Johann Boss Emergency Provider Dr. Neomí Vela Attending Provider Dr. Noemí Vela Admit Provider Dr. Noemí Vela Other Provider Dr. Larry Dunbar Referring Provider Dr. Larry Dunbar Other Provider [phone] Al Ramirez Other Provider Dr. César Fay Attending Provider Dr. Larry Dunbar Attending Provider Sim ORE FEEDER, ORE FEEDER-C Nguyen Attending Provider Kip RAMSAY, Gracy Ramirez Primary Care Provider Sara ZAMORA, Kenji Unavailable Sim ORE FEEDER, ORE FEEDER-C Nguyen Referring Provider Dr. Gracy Shin Referring Provider Kip RAMSAY, Dr. Phelan Primary Care Provider Kip RAMSAY, Dr. Phelan Referring Provider Prashanth ZAMORA, Dr. Freire Attending Provider Andry ZAMORA, Dr. Gillis Attending Provider Andry ZAMORA, Dr. Gillis Referring Provider [phone] Clovis ZAMORA, Dr. Binu Bowman Referring Provider Karen RAMSAY, Dr. Johnson Attending Provider Karen RAMSAY, Dr. Johnson Emergency Provider Clovis ZAMORA, Dr. Binu Bowman Admit Provider [phone] Clovis ZAMORA, Dr. Binu Bowman Attending Provider Olu ZAMORA, Dr. Loki Jones Other Provider Clovis ZAMORA, Dr. Binu Bowman Other Provider Olu ZAMORA, Dr. Loki Jones Attending Provider James ZAMORA, Dr. Melendez Attending Provider James ZAMORA, Dr. Melendez Referring Provider [phone] Dr. Jonel Hernandez DO Attending Provider Dr. Jonel Hernandez DO Referring Provider David RAMSAY, Dr. Remy Other Provider Greta ZAMORA, Dr. Packer Attending Provider Greta ZAMORA, Dr. Packer Referring Provider REJI DANIELLE Attending Unavailable GRACY SHIN A Primary Care Unavailable KIP, GRACY A Primary Care Unavailable Kip RAMSAY, Dr. Phelan Primary Care Provider Kip RAMSAY, Dr. Phelan Referring Provider Andry ZAMORA, Dr. Gillis Attending Provider Tianna Zazueta PA-C Attending Provider Christine ZAMORA, Dr. Fallon Attending Provider Mikala Choudhury Other Provider Kip RAMSAY, Dr. Phelan Attending Provider Dr. Tani Alford MD Referring Provider Kip RAMSAY, Dr. Phelan Primary Care Provider James ZAMORA, Dr. Melendez Attending Provider James ZAMORA, Dr. Melendez Referring Provider Nick ZAMORA, Dr. Betancur Attending Provider Nick ZAMORA, Dr. Betancur Referring Provider Dr. Gracy Shin DO Primary Care Provider Dr. Jonel Hernandez DO Attending Provider Dr. Gracy Shin DO Referring Provider Dr. Tani Alford MD Attending Provider Dr. Gracy Shin DO Primary Care Provider Nguyen Perry Attending Provider Radha Guzman Attending Provider Unavailable Nguyen Perry Referring Provider Dr. Gracy Shin DO Primary Care Provider Dr. Gracy Shin DO Referring Provider Greta ZAMORA, Dr. Packer Attending Provider Andry ZAMORA, Dr. Gillis Attending Provider Andry ZAMORA, Dr. Gillis Referring Provider Paty ZAMORA, Dr. Lino Attending Provider [phone] Paty ZAMORA, Dr. Lino Referring Provider Paty ZAMORA, Dr. Lino Other Provider Radha Guzman Attending Provider Unavailable Kip RAMSAY, Dr. Phelan Primary Care Provider Kip RAMSAY, Dr. Phelan Referring Provider Kip RAMSAY, Dr. Phelan Primary Care Provider Kip RAMSAY, Dr. Phelan Referring Provider Lauren ZAMORA, Dr. Fallon Attending Provider Lauren ZAMORA, Dr. Fallon Referring Provider James ZAMORA, Dr. Melendez Attending Provider James ZAMORA, Dr. Melendez Referring Provider Kip RAMSAY, Dr. Phelan Primary Care Physician Nick ZAMORA, Dr. Betancur Attending Physician Prashanth ZAMORA, Dr. Freire Attending Physician Prashanth ZAMORA, Dr. Freire Referring Provider Andry ZAMORA, Dr. Gillis Attending Physician Kip RAMSAY, Dr. Phelan Referring Provider Sim LYNCH-Nguyen Bailey Attending Physician Paty ZAMORA, Dr. Lino Attending Physician Paty ZAMORA, Dr. Lino Nurse Practitioner [phone] Lauren ZAMORA, Dr. Fallon Attending Physician James ZAMORA, Dr. Melendez Attending Physician Gracy Shin Primary Care Unavailable Sim LYNCH, Nguyen Attending Unavailable Sim LYNCH, Nguyen Referring Unavailable Al Ramirez Attending Unavailable Kip, Gracy Primary Care Unavailable James, Jayaprakas Referring Unavailable Lauren Vasyl Referring Unavailable Vasyl Aguilar Attending Unavailable Kip, Gracy Primary Care Unavailable James, Jayaprakas Attending Unavailable Kip, Gracy Primary Care Unavailable James, Jayaprakas Referring Unavailable Kip, Gracy Primary Care Unavailable Isaias Romeroe Referring Unavailable Pipe Romero Attending Unavailable Kip, Gracy Primary Care Unavailable Prashanth, Tani Referring Unavailable Prashanth Tani Attending Unavailable Kip, Gracy Attending Unavailable Kip, Gracy Primary Care Unavailable Prashanth, Tani Referring Unavailable Kip, Gracy Primary Care Unavailable Loki Raines Consulting Unavailable Binu Brannon Referring Unavailable Binu Brannon Attending Unavailable Binu Brannon Miguel Admitting Unavailable Sim ORE FEEDER, Nguyen Attending Unavailable Sim ORE FEEDER, Nguyen Referring Unavailable Kip, Gracy Primary Care Unavailable James, Jayaprakas Referring Unavailable Kip, Gracy Primary Care Unavailable Mikala Choudhury Consulting Unavailable James, Jayaprakas Attending Unavailable Kip, Gracy Primary Care Unavailable Jonel Hernandez Attending Unavailable Kobe Hernandezk Referring Unavailable Kip, Gracy Primary Care Unavailable Brown, Jonel Referring Unavailable BrownJonel Attending Unavailable Kip, Gracy Primary Care Unavailable Isaias Romeroe Referring Unavailable Pipe Romero Attending Unavailable Kip, Gracy Primary Care Unavailable Sim ORE FEEDER, Nguyen Attending Unavailable Sim ORE FEEDER, Nguyen Referring Unavailable Kip, Gracy Primary Care Unavailable Alex Jones Attending Unavailable Kip, Gracy Primary Care Unavailable [place], [place] Referring Unavailable [place], [place] Attending Unavailable Kip, Gracy Primary Care Unavailable Robotham, Birdie Attending Unavailable Robotham, Birdie Referring Unavailable Kip, Gracy Primary Care Unavailable Kip, Gracy Referring Unavailable Vasyl King Attending Unavailable Kip, Gracy Primary Care Unavailable Kip, Gracy Referring Unavailable Jonel Hernandez Attending Unavailable Kip, Gracy Primary Care Unavailable Kip, Gracy Referring Unavailable Sim ORE FEEDER, Nguyen Attending Unavailable Kip, Rgacy Primary Care Unavailable James, Jayaprakas Referring Unavailable James, Jayaprakas Attending Unavailable James, Jayaprakas Attending Unavailable Kip, Gracy Primary Care Unavailable James, Jayaprakas Referring Unavailable Kip, Gracy Primary Care Unavailable Carlin Wilde Referring Unavailable Andry, [place] Attending Unavailable Kip, Gracy Primary Care Unavailable Pipe Romero Attending Unavailable Kip, Gracy Primary Care Unavailable Loki Raines Attending Unavailable Loki Raines Consulting Unavailable Clovis, Afshin Referring Unavailable Clovis, Afshin Admitting Unavailable Clovis, Afshin Consulting Unavailable Kip, Gracy Primary Care Unavailable Brown, Jonel Referring Unavailable Brown, Jonel Attending Unavailable Brown, Jonel Consulting Unavailable Kip, Gracy Primary Care Unavailable Clovis, Afshin Referring Unavailable Andry, [place] Attending Unavailable Kip, Gracy Primary Care Unavailable Andry, [place] Attending Unavailable Sim LYNCH, Nguyen Attending Unavailable Kip, Gracy Primary Care Unavailable Kip, Gracy Primary Care Unavailable Brown, Jonel Referring Unavailable Brown, Jonel Attending Unavailable Kip, Gracy Primary Care Unavailable [place], [place] Consulting Unavailable [place], [place] Referring Unavailable [place], [place] Attending Unavailable Kip, Gracy Primary Care Unavailable Andry, Carlin Attending Unavailable Andry, [place] Referring Unavailable Kip, Gracy Primary Care Unavailable Kip, Gracy Referring Unavailable Tani Alford Attending Unavailable Kip, Gracy Primary Care Unavailable Andry, [place] Referring Unavailable Andry, [place] Attending Unavailable Andry, Carlin Attending Unavailable Kip, Gracy Primary Care Unavailable Kip, Gracy Primary Care Unavailable Andry, Carlin Referring Unavailable Andry, Carlin Attending Unavailable Kip, Gracy Primary Care Unavailable Kip, Gracy Referring Unavailable Robotham, Birdie Attending Unavailable Kip, Gracy Primary Care Unavailable Andry, Carlin Attending Unavailable Kip, Gracy Primary Care Unavailable Kip, Gracy Referring Unavailable Robotham, Birdie Attending Unavailable Kip, Gracy Primary Care Unavailable Kip, Gracy Referring Unavailable Tianna Sagastume Attending Unavailable Kip, Gracy Primary Care Unavailable Andry, Carlin Referring Unavailable Andry, [place] Attending Unavailable Allergies Allergy Classification Reported Allergen(s) Allergy Type Date of Onset Reaction(s) Facility (6 sources) penicillin; Translations: [PENICILLIN] Drug Allergy 09-11-19 11 [facility] Work Phone: (2 sources) Penicillins (Antibiotic) drug allergy 07-19-19 11 [facility] Work Phone: (20 sources) Penicillins; Translations: [PENICILLINS] Propensity to adverse reactions (disorder) 09-04-19 22 [facility] Repository (20 sources) Sulfamethoxazole Drug Allergy 04-14-[address] [facility] Comment on above: increases K+ levels (20 sources) Trimethoprim Drug Allergy 04-14-[address] [facility] Comment on above: increases K+ levels (3 sources) Sulfamethoxazole / Trimethoprim; Translations: [SULFAMETHOXAZOLE-T RIMETHOPRIM] Drug Allergy 06-25-19 Other: See Comments [facility] (1 source) Sulfamethoxazole Drug Allergy 09-20-[address] [facility] Repository (1 source) Trimethoprim Drug Allergy 09-20-[address] [facility] Repository Medications Current Medications Medication Drug Class(es) Dates Sig (Normalized) Sig (Original) cholecalciferol 0.075 mg oral tablet (20 sources) Vitamin D Start: 07-09-2023 take 1 tablet by mouth once daily Start: 05-21-2018 End: 07-09-2023 take 1 tablet by mouth once daily Cholecalciferol (Vitamin D3) 2,000 unit tablet Discontinued 2000 U PO DAILY May 21, 2018 5:04pm July 09, 2023 9:27am vitamin Start: 03-10-2018 End: 05-21-2018 Cholecalciferol (Vitamin D3) 2,000 unit tablet Discontinued 3000 U PO DAILY March 10, 2018 10:40am May 21, 2018 5:05pm Start: 02-05-2018 take 1 tablet by len once daily cholecalciferol 3,000 unit tab Take 1 tablet by mouth once daily. 120 tablet 0 02/05/2018 Active Start: 11-16-2017 End: 03-10-2018 take 1 tablet by mouth once daily Cholecalciferol (Vitamin D3) 2,000 unit tablet Discontinued 2000 U PO DAILY November 16, 2017 12:00am March 10, 2018 10:50am Start: 03-26-2017 End: 11-16-2017 take 1 capsule by mouth once daily Cholecalciferol (Vitamin D3) 5,000 unit capsule Discontinued 5000 U PO daily March 26, 2017 1:00am November 16, 2017 8:35am Start: 10-23-2014 take 1 tablet by len th once daily VITAMIN D3 5000 UNIT CAPS One tablet by mouth daily for vitamin d deficiency CHOLECALCIFEROL [id number] Swathi Emery Start: 10-18-2014 End: 10-23-2014 take 1 tablet by mouth every week VITAMIN D3 68511 UNIT CAPS 1 tablet by mouth once per week for vitamin D deficiency CHOLECALCIFEROL [id number] Gracy Shin DO Comment on above: Take 1 tablet by len th once daily. ipratropium bromide 0.021 mg/actuat metered dose nasal spray (7 sources) Anticholinergic Start: 05-03-19 Ipratropium [place] 21 mcg (0.03 %) spray,non-aerosol (12 sources) Start: 05-03-19 Ipratropium [place] 21 mcg (0.03 %) spray,non-aerosol Active 1 NMA INTRANASAL as needed May 03, 2024 1:00am pantoprazole 40 mg delayed release oral tablet (20 sources) Proton Pump Inhibitor Start: 05-03-19 take 1 tablet by mouth twice daily Start: 03-15-2018 End: 05-03-2024 take 2 tablets by mouth twice daily Pantoprazole 20 mg tablet,delayed release (DR/EC) Discontinued 40 mg PO TWICE A DAY March 15, 2018 12:12pm May 03, 2024 11:43am reflux Start: 03-15-2018 take 40 mg by mouth twice daily Pantoprazole Active 40 MG PO TWICE A DAY March 15, 2018 12:12pm Start: 02-04-2018 End: 03-15-2018 take 1 tablet by mouth once daily Pantoprazole 20 mg tablet,delayed release (DR/EC) Discontinued 20 mg PO DAILY March 10, 2018 1:00am March 15, 2018 12:12pm Start: 08-16-2016 End: 03-10-2018 take 1 tablet by mouth twice daily Pantoprazole 40 MG tablet Discontinued 40 mg PO TWICE A DAY March 26, 2017 10:36am March 10, 2018 10:43am STOMACH Comment on above: Take 1 tablet by len th once daily. thiamine 100 mg oral tablet (20 sources) Start: 07-09-2023 take 1 tablet by mouth once daily Start: 02-05-2018 End: 03-31-2023 take 1 tablet by mouth once daily Thiamine Hcl (Vitamin B1) 100 mg tablet Discontinued 100 mg PO DAILY March 10, 2018 1:00am March 31, 2023 2:49pm Comment on above: Take 1 tablet by len th once daily. levothyroxine sodium 0.15 mg oral tablet (20 sources) l-Thyroxine Start: 03-31-2023 take 1 tablet by mouth once daily Start: 06-18-2020 End: 03-31-2023 take 1 tablet by mouth once daily Levothyroxine 175 mcg tablet Discontinued 175 ug PO DAILY June 18, 2020 12:00am March 31, 2023 2:48pm Start: 03-26-2017 End: 06-18-2020 Levothyroxine 200 mcg tablet Discontinued 175 ug PO daily 0 March 26, 2017 1:00am June 18, 2020 9:53am THYROID Start: 03-26-2017 End: 06-18-2020 take 175 ug by mouth once daily Levothyroxine Discontinued 175 MCG PO daily March 26, 2017 1:00am June 18, 2020 9:53am Start: 11-25-2015 End: 03-26-2017 Levothyroxine 25 MCG tablet Discontinued 200 ug PO DAILY November 25, 2015 12:00am March 26, 2017 10:36am Start: 11-25-2015 End: 03-26-2017 take 200 ug by mouth once daily Levothyroxine Discontinued 200 MCG PO DAILY November 25, 2015 12:00am March 26, 2017 10:36am Start: 10-18-2014 take 1 tablet by len th once daily SYNTHROID 50 MCG TABS One tablet by mouth daily LEVOTHYROXINE SODIUM [id number] Ambrocio Whitaker MD Start: 12-01-2012 End: 03-25-2013 take 1 tablet by mouth once daily SYNTHROID 75 MCG TABS One tablet by mouth daily LEVOTHYROXINE SODIUM [id number] Ptee Espinosa MD Start: 07-18-2011 take 1 tablet by len th once daily SYNTHROID 25 MCG TABS One tablet by mouth daily. LEVOTHYROXINE SODIUM [id number] Pete Espinosa MD Start: 10-22-2010 take 1 tablet by len th once daily SYNTHROID 200 MCG TABS One tablet by mouth daily. LEVOTHYROXINE SODIUM [id number] Gracy Shin DO End: 10-22-2010 take 1 tablet by mouth once daily SYNTHROID 150 MCG TABS One tablet by mouth daily LEVOTHYROXINE SODIUM [id number] Olman Head MD End: 07-18-2010 take 1 tablet by mouth once daily SYNTHROID TABS .15 mg; One tablet by mouth daily LEVOTHYROXINE SODIUM TABS [id number] Chloe Disla Comment on above: Take 200 mcg by mout h daily before breakfast. vitamin b12 0.5 mg oral tablet (20 sources) Vitamin B12 Start: 03-27-2017 take 1 tablet by mouth once daily Start: 10-18-2014 take 1 tablet by len th once daily B-12 1000 MCG SUBL One tablet by mouth daily for b12 deficiency CYANOCOBALAMIN [id number] Gracy Shin DO Start: 10-18-2014 take 1 tablet by len th once daily VITAMIN B12 TABS One tablet by mouth daily CYANOCOBALAMIN TABS [id number] Ambrocio Whitaker MD take 5 tablets by mo ut once daily cyanocobalamin (VITAMIN B-12) 100 mcg tab Take 500 mcg by mouth once daily. 0 Active Comment on above: Take 500 mcg by mout h once daily. Completed/Discontinued Medications Medication Drug Class(es) Dates Sig (Normalized) Sig (Original) acetaminophen 325 mg oral tablet (20 sources) Start: 02-04-2018 take 325-650 mg by mouth every four hours as needed acetaminophen (TYLENOL) 325 mg tablet Take 1-2 tablets by mouth every 4 hours as needed for Pain (for mild to moderate pain). 40 tablet 0 02/04/2018 Active Start: 10-27-2017 take 2 tablets by mo uth every four hours as needed for pain Start: 10-27-2017 take 1000 mg by mout h every four hours Acetaminophen Active 1000 MG PO Q4H October 27, 2017 12:00am Start: 10-27-2017 take 500 mg by mouth every four hours as needed Acetaminophen Active 500 MG PO EVERY 4 HOURS NEEDED October 27, 2017 12:00am Comment on above: Take 1-2 tablets by mouth every 4 hours as needed for Pain (for mild to moderate pain). acetaminophen 300 mg / codeine phosphate 30 mg oral tablet (2 sources) Opioid Agonist Start: 3 End: 4 take 1 tablet by mouth four times daily as needed for pain ACETAMINOPHEN-CODEINE #3 300-30 MG TABS One tablet by mouth four times daily as needed pain ACETAMINOPHEN-CODEINE [id number] Pete Espinosa MD acetaminophen 325 mg / HYDROcodone bitartrate 5 mg oral tablet (20 sources) Opioid Agonist Start: 8 End: 8 Hydrocodone-Acetaminop hen ([place]) 5-325 mg tablet Discontinued 1 {tbl} PO Q4H 0 May 18, 2017 1:00am June 01, 2017 10:13am acetaminophen 325 mg / oxyCODONE hydrochloride 5 mg oral tablet (20 sources) Opioid Agonist Start: 3 End: 4 Oxycodone-Acetaminophe n 5-325 mg tablet Discontinued 1 {tbl} PO EVERY 6 HOURS as needed for pain 28 7 0 November 20, 2022 March 31, 2023 2:49pm Postoperative pain Other acute postprocedural pain Start: 11-20-2022 End: 03-31-2023 take 1 tablet by mouth every six hours Oxycodone-Acetaminophen Discontinued 1 TABLET PO EVERY 6 HOURS 28 7 November 20, 2022 March 31, 2023 2:49pm 200 actuat albuterol 0.09 mg/actuat metered dose inhaler (2 sources) beta2-Adrenergic Agonist Start: 01-30-2012 End: 01-06-2013 take 2 puff(s) by inhalation every four hours as needed for dyspnea VENTOLIN HFA 108 (90 Base) MCG/ACT AERS 2 puff INH every 4hr as needed dyspnea ALBUTEROL SULFATE [id number] Pete Espinosa MD amLODIPine 5 mg oral tablet (20 sources) Dihydropyridine Calcium Channel Magdy Start: 05-21-2021 End: 01-19-2024 take 1 tablet by mouth once daily Amlodipine 5 mg tablet Discontinued 5 mg PO DAILY 90 3 February 23, 2023 1:46pm January 19, 2024 9:28am blood pressure apixaban 5 mg oral tablet (20 sources) Factor Xa Inhibitor Start: 08-08-2021 End: 11-07-2024 take 1 tablet by mouth twice daily Apixaban (Eliquis) 5 mg tablet Discontinued 5 mg PO TWICE A DAY 180 4 February 12, 2024 12:44pm November 07, 2024 2:18pm blood thinner Start: 06-08-2017 End: 12-23-2017 take 1 tablet by mouth twice daily Apixaban (Eliquis) 5 mg tablet Discontinued 5 mg PO TWICE A DAY 180 3 December 01, 2017 3:21pm December 23, 2017 11:38am BLOOD THINNER Arm Brace (Wrist Brace) misc (20 sources) Start: 08-18-2019 End: 09-12-2019 Arm Brace (Wrist Brace) misc Discontinued 0 .ROUTE .MEDSUPPLY 1 0 August 18, 2019 12:00am September 12, 2019 8:58am Carpal tunnel syndrome, left upper limb wrist splint for carpal tunnel syndrome As directed for left wrist Start: 08-18-2019 End: 09-12-2019 Arm Brace (Wrist Brace) misc Discontinued 0 .ROUTE .MEDSUPPLY 1 August 17, 2019 11:00pm September 12, 2019 7:58am As directed for left wrist Start: 08-18-2019 End: 09-12-2019 Arm Brace (Wrist Brace) misc Discontinued 0 .ROUTE .MEDSUPPLY August 18, 2019 12:00am September 12, 2019 8:58am As directed for left wrist ascorbic acid 500 mg oral capsule (20 sources) Start: 03-26-2017 End: 03-10-2018 take 1 capsule by mouth once daily Ascorbic Acid (Vitamin C) 500 mg capsule Discontinued 500 mg PO daily 0 March 26, 2017 1:00am March 10, 2018 10:43am Start: 10-18-2014 take 1 tablet by once daily VITAMIN C CAPS One tablet by mouth daily ASCORBIC ACID CAPS [id number] Ambrocio Whitaker MD aspirin 81 mg delayed release oral tablet (20 sources) Nonsteroidal Anti-inflammatory Drug Start: 03-10-2018 End: 09-12-2019 Aspirin (Adult Low Dose Aspirin) 81 mg tablet,delayed release (DR/EC) Discontinued 162 mg PO DAILY March 10, 2018 1:00am September 12, 2019 9:00am Start: 02-05-2018 take 2 tablets by mo [facility] once daily aspirin 81 mg chewable tablet Take 2 tablets by mouth once daily. 108 tablet 0 02/05/2018 Active Start: 05-18-2017 End: 12-23-2017 take 1 tablet by mouth once daily Aspirin 81 mg tablet,delayed release (DR/EC) Discontinued 81 mg PO daily 0 May 18, 2017 1:00am December 23, 2017 11:38am Start: 07-18-2010 take 1 tablet by len once daily DEANGELO ASPIRIN EC LOW DOSE 81 MG TBEC One tablet by mouth daily ASPIRIN [id number] Olman Head MD Start: 07-18-2010 take 1 tablet by len once daily as needed ASPIRIN EC LOW DOSE 81 MG TBEC One tablet by mouth daily, as needed ASPIRIN [id number] Ambrocio Whitaker MD End: 07-18-2010 take 1 tablet by mouth once daily ASPIRIN 325 MG TABS One tablet by mouth daily ASPIRIN [id number] Olman Head MD Comment on above: Take 2 tablets by mo [facility] once daily. atorvastatin 40 mg oral tablet (20 sources) HMG-CoA Reductase Inhibitor Start: 4 End: take 1 tablet by mouth once daily Atorvastatin 40 mg tablet Discontinued 40 mg PO DAILY July 09, 2023 12:00am December 26, 2023 4:52pm Start: 01-19-2019 End: 01-26-2024 take 1 tablet by mouth once daily Atorvastatin 20 mg tablet Discontinued 20 mg PO DAILY 90 3 February 06, 2023 9:28am January 26, 2024 11:59am cholesterol Start: 05-03-2018 End: 01-19-2019 take 1 tablet by mouth once daily Atorvastatin 40 mg tablet Discontinued 40 mg PO DAILY May 05, 2018 2:19pm January 19, 2019 4:13pm Start: 04-29-2018 atorvastatin ( LIPITOR) 80 mg tablet Take 40 mg by mouth once daily. 0 04/29/2018 Active Start: 12-01-2017 End: 05-03-2018 take 1 tablet by mouth once daily Atorvastatin 80 mg tablet Discontinued 80 mg PO DAILY 90 December 01, 2017 3:21pm May 03, 2018 10:37am Start: 11-16-2017 End: 12-01-2017 take 2 tablets by mouth once daily Atorvastatin 40 mg tablet Discontinued 80 mg PO daily November 16, 2017 8:34am December 01, 2017 3:12pm Start: 11-16-2017 End: 12-01-2017 take 80 mg by mouth once daily Atorvastatin Discontinu ed 80 MG PO daily November 16, 2017 8:34am December 01, 2017 3:12pm Start: 05-18-2017 End: 11-16-2017 take 1 tablet by mouth once daily Atorvastatin 40 mg tablet Discontinued 40 mg PO daily 30 June 24, 2017 3:00pm November 16, 2017 8:36am Comment on above: Take 40 mg by mouth once daily. azithromycin 500 mg oral tablet (20 sources) Macrolide Antimicrobial Start: 04-03-19 End: 04-14-19 take 1 tablet by mouth once daily Azithromycin 500 mg tablet Discontinued 500 mg PO DAILY 4 4 0 April 03, 2023 1:00am April 14, 2023 3:30pm Start: 02-24-2011 End: 07-11-2011 take 2 tablets by mouth once daily, then take 1 tablet by mouth, then take 1 tablet by mouth once daily ZITHROMAX Z-MED 250 MG TABS 2 tabs on day one then 1 tab PO daily for 4 days. AZITHROMYCIN [id number] Ambrocio Whitaker MD benzonatate 200 mg oral capsule (20 sources) Non-narcotic Antitussive Start: 09-26-2021 End: 05-05-2022 take 1 capsule by mouth three times daily as needed for cough Benzonatate 200 mg capsule Discontinued 200 mg PO THREE TIMES A DAY as needed for cough 30 0 September 26, 2021 12:00am May 05, 2022 9:06am 12 hr buPROPion hydrochloride 150 mg extended release oral tablet (2 sources) Aminoketone Start: 12-01-2012 End: 01-06-2013 take 1 tablet by mouth once daily, then take 1 tablet by mouth twice daily WELLBUTRIN SR 150 MG [id number] One tablet by mouth daily x 4 days, then One tablet by mouth twice daily BUPROPION HCL [id number] Ambrocio Whitaker MD calcium acetate 667 mg oral tablet (20 sources) Start: 05-21-2018 End: 08-27-2018 take 1 tablet by mouth three times daily Calcium Acetate(Phosphat Bind) (Calphron) 667 mg tablet Discontinued 667 mg PO THREE TIMES A DAY May 21, 2018 1:00am August 27, 2018 4:03pm calcium acetate 667 mg (169 mg calcium)/5 mL soln Take by mouth. 0 Active Comment on above: Take by mouth. carvedilol 25 mg oral tablet (20 sources) alpha-Adrenergic Magdy, beta-Adrenergic Magdy Start: 03-10-2018 End: 03-15-2018 take 1 tablet by mouth twice daily Carvedilol 3.125 mg tablet Discontinued 3.125 mg PO TWICE A DAY March 10, 2018 1:00am March 15, 2018 12:10pm Start: 03-05-2018 End: 10-24-2024 take 1 tablet by mouth twice daily Carvedilol 25 mg tablet Discontinued 25 mg PO TWICE A DAY August 03, 2023 1:42pm October 24, 2024 10:30am blood pressure Comment on above: Take 1 tablet by len th twice daily. cefdinir 300 mg oral capsule (19 sources) Cephalosporin Antibacterial Start: 5 End: 5 take 1 capsule by mouth twice daily Cefdinir 300 mg capsule Discontinued 300 mg PO TWICE A DAY 10 June 15, 2024 12:00am August 22, 2024 2:33pm cefuroxime 500 mg oral tablet (1 source) Cephalosporin Antibacterial Start: 2 End: 2 take 1 tablet by mouth twice daily CEFUROXIME AXETIL 500 MG TABS One tablet by mouth twice daily CEFUROXIME AXETIL [id number] Pete Espinosa MD cephalexin 500 mg oral capsule (20 sources) Cephalosporin Antibacterial Start: 5 End: 5 take 1 capsule by mouth every six hours Cephalexin 500 mg capsule Discontinued 500 mg PO EVERY 6 HOURS 28 0 April 03, 2024 1:00am May 03, 2024 11:42am Start: 12-14-2023 End: 12-26-2023 take 1 capsule by mouth twice daily Cephalexin 500 mg capsule Discontinued 500 mg PO TWICE A DAY 10 5 0 December 14, 2023 12:00am December 26, 2023 4:53pm Start: 03-03-2012 End: 12-01-2012 take 1 tablet by mouth three times daily CEPHALEXIN 500 MG TABS One tablet by mouth three times daily CEPHALEXIN [id number] Pete Espinosa MD ciprofloxacin 500 mg oral tablet (19 sources) Quinolone Antimicrobial Start: 04-10-2024 End: 05-03-2024 take 1 tablet by mouth twice daily Ciprofloxacin Hcl (Cipro) 500 mg tablet Discontinued 500 mg PO TWICE A DAY 14 April 10, 2024 1:00am May 03, 2024 11:42am clopidogrel 75 mg oral tablet (20 sources) [id number] Platelet Inhibitor Start: 04-28-2019 End: 08-08-2021 take 1 tablet by mouth once daily Clopidogrel 75 mg tablet Discontinued 75 mg PO DAILY 30 February 18, 2021 11:10am August 06, 2021 8:40am codeine phosphate 2 mg/ml / guaiFENesin 20 mg/ml oral solution (2 sources) Opioid Agonist Start: 01-30-2012 End: 03-03-2012 take 5 mL by mouth every six hours as needed for cough CHERATUSSIN AC 100-10 MG/5ML SYRP 5ml by mouth every 6hr as needed cough, avoid driving or operating machine under the influence of medication. GUAIFENESIN-CODEIN E [id number] Pete Espinosa MD dapagliflozin 10 mg oral tablet (20 sources) Sodium-Glucose Cotransporter 2 Inhibitor Start: 11-25-2022 End: 01-19-2024 take 1 tablet by mouth once daily Dapagliflozin Propanediol (Farxiga) 10 mg tablet Discontinued 10 mg PO DAILY November 25, 2022 12:00am January 19, 2024 9:29am diabetes 0.3 ml darbepoetin tereza 0.2 mg/ml prefilled syringe (20 sources) Erythropoiesis-stimu lating Agent Start: 03-10-2018 End: 05-21-2018 Darbepoetin Tereza In Polysorbat (Aranesp (In Polysorbate)) 60 mcg/0.3 mL syringe Discontinued 60 ug SC EVERY WEEK March 10, 2018 1:00am May 21, 2018 5:05pm dexamethasone 6 mg oral tablet (19 sources) Corticosteroid Start: 12-17-2023 End: 12-26-2023 take 1 tablet by mouth once daily Dexamethasone 6 mg tablet Discontinued 6 mg PO DAILY 5 0 December 17, 2023 12:00am December 26, 2023 4:55pm dexamethasone 1 mg/ml / tobramycin 3 mg/ml ophthalmic suspension (1 source) Aminoglycoside Antibacterial, Corticosteroid Start: 02-24-2011 End: 03-03-2011 take 2-3 drop(s) into the eye(s) three times daily TOBRADEX 0.3-0.1 % SUSP 2-3 drops in each eye 3 times a day. TOBRAMYCIN-DEXAMET HASONE [id number] Olman Head MD doxycycline hyclate 100 mg oral capsule (20 sources) Tetracycline-class Drug Start: 06-15-2024 End: 08-22-2024 take 1 capsule by mouth twice daily Doxycycline Hyclate 100 mg capsule Discontinued 100 mg PO TWICE A DAY 10 0 June 23, 2024 11:34am August 22, 2024 2:33pm Start: 09-28-2023 End: 12-12-2023 take 1 capsule by mouth twice daily Doxycycline Monohydrate 100 mg capsule Discontinued 100 mg PO TWICE A DAY 20 0 September 28, 2023 12:00am December 12, 2023 8:37am Start: 11-20-2022 End: 03-31-2023 take 1 capsule by mouth twice daily Doxycycline Monohydrate 100 mg capsule Discontinued 100 mg PO TWICE A DAY 28 14 0 November 20, 2022 12:00am March 31, 2023 2:48pm Start: 03-10-2018 End: 05-21-2018 take 1 capsule by mouth twice daily Doxycycline Hyclate 100 mg capsule Discontinued 100 mg PO TWICE A DAY March 10, 2018 1:00am May 21, 2018 5:05pm Start: 01-30-2012 End: 02-09-2012 take 1 tablet by mouth twice daily DOXYCYCLINE HYCLATE 100 MG TABS One tablet by mouth twice daily DOXYCYCLINE HYCLATE [id number] Pete Espinosa MD ELASTIC BANDAGES & SUPPORTS (2 sources) Start: 09-30-2010 WRIST SPLINT r ight wrist, diagnosis: right wrist pain and swelling ELAST[employer] BANDAGES [employer] SUPPORTS [id number] Pete Espinosa MD Start: 09-30-2010 End: 07-11-2011 WRIST SPLINT right wrist, di agnosis: right wrist pain and swelling ELAST[employer] BANDAGES [employer] SUPPORTS [id number] Ambrocio Whitaker MD ferrous fumarate 325 mg oral tablet (20 sources) Start: 05-28-2017 End: 06-01-2017 take 1 tablet by mouth once daily Ferrous Fumarate 325 mg (106 mg iron) tablet Discontinued 324 mg PO daily May 28, 2017 1:00am June 01, 2017 10:13am ferrous gluconate 325 mg oral tablet (2 sources) Start: 09-10-2010 End: 10-22-2010 take 1 tablet by mouth three times daily FERROUS GLUCONATE 325 MG TABS One tablet by mouth three times daily FERROUS GLUCONATE [id number] Xiomy Martinez ferrous sulfate 325 mg oral tablet (20 sources) Start: 12-23-2017 End: 03-10-2018 take 1 tablet by mouth twice daily Ferrous Sulfate 325 MG tablet Discontinued 325 mg PO TWICE A DAY 60 0 December 23, 2017 12:00am March 10, 2018 10:44am Start: 01-26-2017 End: 03-27-2017 take 1 tablet by mouth once daily Ferrous Sulfate 325 MG tablet Discontinued 325 mg PO DAILY January 26, 2017 1:00am March 27, 2017 8:57am Start: 01-06-2013 take 1 tablet by len th once daily FERROUS SULFATE 325 (65 Fe) MG TABS One tablet by mouth daily FERROUS SULFATE [id number] Ambrocio Whitaker MD Start: 10-22-2010 take 1 tablet by len th twice daily FERROUS SULFATE 325 (65 Fe) MG TABS One tablet by mouth twice daily FERROUS SULFATE [id number] Gracy Shin DO IRON 325 (65 Fe) MG TABS 3 tablets daily FERROUS SULFATE [id number] Chloe Disla End: 10-22-2010 IRON 325 (65 Fe) MG TABS 3 t ablets daily FERROUS SULFATE [id number] Olman Head MD finasteride 5 mg oral tablet (20 sources) 5-alpha Reductase Inhibitor Start: 05-03-2024 End: 08-22-2024 take 1 mg by mouth once daily Finasteride 5 mg tablet Discontinued mg PO DAILY May 03, 2024 1:00am August 22, 2024 2:33pm Start: 01-19-2024 End: 04-06-2024 take 1 tablet by mouth once daily Finasteride 5 mg tablet Discontinued 5 mg PO daily January 19, 2024 12:00am April 06, 2024 1:55pm fosfomycin 3000 mg powder for oral solution (19 sources) Start: 12-29-2023 End: 01-19-2024 Fosfomycin Tromethamine 3 gram packet Discontinued 1 NMA PO Every 3 Days 3 0 December 29, 2023 12:00am January 19, 2024 9:29am start this on 12/30/2023 furosemide 40 mg oral tablet (20 sources) Loop Diuretic Start: 04-14-2023 End: 01-19-2024 take 1 tablet by mouth once daily Furosemide 40 mg tablet Discontinued 40 mg PO DAILY 10 April 24, 2023 1:00am June 17, 2023 9:22am Start: 05-21-2018 End: 08-27-2018 take 1 tablet by mouth once daily Furosemide 20 mg tablet Discontinued 20 mg PO DAILY May 21, 2018 1:00am August 27, 2018 4:04pm Start: 05-18-2017 End: 06-01-2017 take 1 tablet by mouth once daily Furosemide 40 mg tablet Discontinued 40 mg PO daily May 18, 2017 1:00am June 01, 2017 10:13am Comment on above: Take 40 mg by mouth once daily. hydrALAZINE hydrochloride 25 mg oral tablet (20 sources) Arteriolar Vasodilator Start: End: take 1 tablet by mouth every eight hours Hydralazine 25 mg tablet Discontinued 25 mg PO Q8H 90 11 June 24, 2017 3:01pm March 10, 2018 10:44am 2 ml iron-dextran complex 50 mg/ml injection (20 sources) Start: End: inject 50 mg by intramuscular injection every week Iron Dextran 100 mg/2 mL (50 mg/mL) solution Discontinued 50 mg IM EVERY WEEK March 27, 2017 1:00am March 31, 2017 11:03am lansoprazole 30 mg delayed release oral capsule (2 sources) Proton Pump Inhibitor Start: take 1 tablet by mouth once daily as needed PREVACID 30 MG CPDR One tablet by mouth daily as needed LANSOPRAZOLE [id number] Ambrocio Whitaker MD levoFLOXacin 750 mg oral tablet (20 sources) Quinolone Antimicrobial Start: End: take 1 tablet by mouth once daily Levofloxacin 750 mg tablet Discontinued 750 mg PO DAILY 7 0 September 26, 2021 12:00am February 19, 2022 10:04am lisinopril 10 mg oral tablet (20 sources) Angiotensin Converting Enzyme Inhibitor Start: End: take 1 tablet by mouth once daily Lisinopril 10 mg tablet Discontinued 10 mg PO DAILY July 09, 2023 12:00am December 26, 2023 4:57pm magnesium oxide 400 mg oral capsule (20 sources) Start: End: take 1 capsule by mouth once daily Magnesium Oxide 400 mg capsule Discontinued 400 mg PO daily May 18, 2017 1:00am March 10, 2018 10:44am metoprolol tartrate 25 mg oral tablet (20 sources) beta-Adrenergic Magdy Start: End: Metoprolol Tartrate 25 mg tablet Discontinued 12.5 mg PO TWICE A DAY June 01, 2017 10:14am March 10, 2018 10:44am HEART Start: 06-01-2017 End: 03-10-2018 take 12.5 mg by mouth twice daily Metoprolol Tartrate Discontinued 12.5 MG PO TWICE A DAY June 01, 2017 10:14am March 10, 2018 10:44am Start: 05-18-2017 End: 06-01-2017 take 1 tablet by mouth twice daily Metoprolol Tartrate 25 mg tablet Discontinued 25 mg PO TWICE A DAY May 18, 2017 1:00am June 01, 2017 10:15am metroNIDAZOLE 500 mg oral tablet (20 sources) Nitroimidazole Antimicrobial Start: 04-02-2023 End: 04-03-2023 take 1 tablet by mouth three times daily Metronidazole 500 mg tablet Discontinued 500 mg PO THREE TIMES A DAY 21 7 0 April 02, 2023 1:00am April 08, 2023 1:00am April 03, 2023 3:04pm MULTIPLE VITAMINS-MINERALS (3 sources) Start: 09-10-2010 take 1 tablet by mouth once daily CENTRUM TABS One tablet by mouth daily MULTIPLE VITAMINS-MINERALS [id number] Xiomy Martinez Start: 09-10-2010 End: 02-04-2016 take 1 tablet by mouth once daily CENTRUM TABS One tablet by mouth daily MULTIPLE VITAMINS-MINERALS [id number] Ambrocio Whitaker MD Start: 09-10-2010 take 1 tablet by len th once daily CENTRUM TABS One tablet by mouth daily MULTIPLE VITAMINS-MINERALS [id number] Swathi Emery Multivitamin preparation (20 sources) Start: 05-18-2017 End: 05-21-2018 take 1 tablet by mouth once daily Multivitamin Discontinued 1 TABLET PO daily May 18, 2017 12:00am May 21, 2018 4:05pm Start: 05-18-2017 End: 05-21-2018 take 1 tablet by mouth once daily Multivitamin Discontinued 1 TABLET PO daily May 18, 2017 1:00am May 21, 2018 5:05pm Multivitamin tablet (19 sources) Start: 05-18-2017 End: 05-21-2018 Multivitamin tablet Discontinued 1 {tbl} PO daily May 18, 2017 1:00am May 21, 2018 5:05pm nitrofurantoin, macrocrystals 25 mg / nitrofurantoin, monohydrate 75 mg oral capsule (20 sources) Nitrofuran Antibacterial Start: 12-17-2023 End: 12-24-2023 take 1 capsule by mouth every twelve hours at mealtime Nitrofurantoin Monohyd/M-Cryst 100 mg capsule Discontinued 1 NMA PO Q12H 14 7 0 December 17, 2023 12:00am December 23, 2023 12:00am December 24, 2023 12:07am administer with a meal/food; swallow whole; do not open, crush, dissolve , or chew Start: 12-12-2023 End: 12-19-2023 take 1 capsule by mouth twice daily at mealtime Nitrofurantoin Monohyd/M-Cryst (Macrobid) 100 mg capsule Discontinued 100 mg PO TWICE A DAY 14 7 0 December 12, 2023 12:00am December 18, 2023 12:00am December 19, 2023 12:12am must administer with a meal/food oxyCODONE hydrochloride 5 mg oral tablet (20 sources) Opioid Agonist Start: 03-10-2018 End: 03-15-2018 take 1 tablet by mouth every six hours as needed for pain Oxycodone 5 mg tablet Discontinued 5 mg PO EVERY 6 HOURS as needed for pain 0 March 10, 2018 1:00am March 15, 2018 12:11pm patiromer 8400 mg powder for oral suspension (20 sources) Potassium Binder Start: 08-20-2018 End: 04-28-2019 Patiromer Calcium Sorbitex (Veltassa) 8.4 gram powder in packet Discontinued 8.4 g PO .4xweek January 19, 2019 3:37pm April 28, 2019 11:34am potassium chloride 20 meq powder for oral solution (20 sources) Start: 05-18-2017 End: 06-01-2017 take 20 mEq by mouth once daily Potassium Chloride 20 mEq packet Discontinued 20 meq PO daily May 18, 2017 1:00am June 01, 2017 10:14am predniSONE 20 mg oral tablet (20 sources) Start: 12-23-2017 End: 03-10-2018 take 3 tablets by mouth once daily Prednisone 20 MG tablet Discontinued 60 mg PO DAILY December 23, 2017 12:00am March 10, 2018 10:44am Start: 12-23-2017 End: 03-10-2018 take 60 mg by mouth once daily Prednisone Discontinued 60 MG PO DAILY December 23, 2017 12:00am March 10, 2018 10:44am sodium bicarbonate 325 mg oral tablet (20 sources) Start: 08-22-2024 End: 09-19-2024 take 1 tablet by mouth once daily Sodium Bicarbonate 325 mg tablet Discontinued 325 mg PO daily August 22, 2024 12:00am September 19, 2024 8:18am Start: 07-09-2023 End: 09-03-2023 take 1 tablet by mouth once daily as needed Sodium Bicarbonate 650 mg tablet Discontinued 650 mg PO DAILY as needed July 09, 2023 12:00am September 03, 2023 9:05am Start: 09-12-2019 End: 08-08-2021 Sodium Bicarbonate 650 mg ta blet Discontinued 325 mg PO TWICE A DAY September 12, 2019 9:00am August 08, 2021 8:40am Start: 09-12-2019 End: 08-08-2021 take 325 mg by mouth twice daily Sodium Bicarbonate Discontinued 325 MG PO TWICE A DAY September 12, 2019 9:00am August 08, 2021 8:40am Start: 04-28-2019 End: 09-12-2019 take 1 tablet by mouth three times daily Sodium Bicarbonate 650 mg tablet Discontinued 650 mg PO THREE TIMES A DAY April 28, 2019 1:00am September 12, 2019 9:01am Start: 05-21-2018 End: 08-27-2018 take 1 tablet by mouth three times daily Sodium Bicarbonate 650 mg tablet Discontinued 650 mg PO THREE TIMES A DAY May 21, 2018 1:00am August 27, 2018 4:04pm SODIUM BICARBONA TE ORAL Take by mouth. 0 Active Comment on above: Take by mouth. sodium zirconium cyclosilicate 82782 mg powder for oral suspension (20 sources) Start: 07-09-2023 End: 09-03-2023 Sodium Zirconium Cyclosilicate (Lokelma) 10 gram powder in packet Discontinued 10 g PO DAILY July 09, 2023 12:00am September 03, 2023 9:05am Start: 02-08-2021 End: 02-19-2022 Sodium Zirconium Cyclosilica te (Lokelma) 10 gram powder in packet Discontinued 10 g PO DAILY February 08, 2021 1:00am February 19, 2022 9:57am sulfamethoxazole 800 mg / trimethoprim 160 mg oral tablet (20 sources) Dihydrofolate Reductase Inhibitor Antibacterial, Sulfonamide Antimicrobial Start: 03-26-2023 End: 04-02-2023 Sulfamethoxazole-Trimethopri m (Bactrim Ds) 800-160 mg tablet Discontinued 1 {tbl} PO TWICE A DAY 20 10 0 March 26, 2023 1:00am April 04, 2023 1:00am April 02, 2023 3:14pm Start: 02-25-2020 End: 05-01-2020 Sulfamethoxazole-Trimethopri m 800-160 mg tablet Discontinued 1 {tbl} PO TWICE A DAY 14 7 0 April 24, 2020 2:25pm April 30, 2020 1:00am May 01, 2020 1:03am Start: 02-25-2020 End: 05-01-2020 take 1 tablet by mouth twice daily Sulfamethoxazole-Trimethoprim Discontinu ed 1 TABLET PO TWICE A DAY 14 7 April 24, 2020 2:25pm May 01, 2020 1:03am Start: 03-03-2012 End: 01-06-2013 take 1 tablet by mouth twice daily SULFAMETHOXAZOLE-TRIMETHOPRIM 800-160 MG TABS One tablet by mouth twice daily SULFAMETHOXAZOLE-TRIMETHOPRIM [id number] Ambrocio Whitaker MD tamsulosin hydrochloride 0.4 mg oral capsule (20 sources) alpha-Adrenergic Magdy Start: 05-03-2024 End: 08-22-2024 take 1 capsule by mouth once daily Tamsulosin 0.4 mg capsule Discontinued 0.4 mg PO DAILY May 03, 2024 1:00am August 22, 2024 2:34pm Start: 01-19-2024 End: 04-06-2024 take 1 capsule by mouth twice daily Tamsulosin 0.4 mg capsule Discontinued 0.4 mg PO TWICE A DAY January 19, 2024 9:30am April 06, 2024 1:55pm HELP WITH URINE FLOW Start: 12-26-2023 End: 01-19-2024 take 1 capsule by mouth once daily Tamsulosin 0.4 mg capsule Discontinued 0.4 mg PO DAILY December 26, 2023 12:00am January 19, 2024 9:31am HELP WITH URINE FLOW Vitamin B Complex (B Complex-Vitamin B12) tablet (20 sources) Start: 03-26-2017 End: 03-27-2017 Vitamin B Complex (B Complex-Vitamin B12) tablet Discontinued 1 {tbl} PO daily March 26, 2017 1:00am March 27, 2017 8:56am Start: 03-26-2017 End: 03-27-2017 take 1 tablet by mouth once daily Vitamin B Complex (B Complex-Vitamin B12) tablet Discontinued 1 TABLET PO daily March 26, 2017 12:00am March 27, 2017 7:56am Start: 03-26-2017 End: 03-27-2017 take 1 tablet by mouth once daily Vitamin B Complex (B Complex-Vitamin B12) tablet Discontinued 1 TABLET PO daily March 26, 2017 1:00am March 27, 2017 8:56am warfarin sodium 2 mg oral tablet (20 sources) Vitamin K Antagonist Start: 06-01-2017 End: 06-08-2017 take 1 tablet by mouth once daily Warfarin (Coumadin) 2 mg tablet Discontinued 4 mg PO daily Protocol: Patient Instructed to take:warfarin 2 mg (2 Tabs) on MICHAEL, , , , TH, FR, SA 180 3 June 02, 2017 1:17pm June 08, 2017 6:01pm Please contact the information source for Protocol details. Start: 05-18-2017 End: 06-01-2017 take 1 tablet by mouth every week, then take 1 tablet by mouth every month Warfarin (Coumadin) 2 mg tablet Discontinued 2 mg PO .COMPLEX Protocol: Patient Instructed to take:warfarin 2 mg (1 Tab) on MICHAEL, TH, FR, SAwarfarin 2 mg (2 Tabs) on , , May 25, 2017 5:12pm June 01, 2017 7:05pm 2 mg PO 2 tablets (4mg) on Thu, , ; 1 tablet by mouth other days of the week Please contact the information source for Protocol details. Start: 05-18-2017 End: 05-18-2017 take 1 tablet by mouth once daily Warfarin (Coumadin) 2 mg tablet Discontinued 2 mg PO daily May 18, 2017 1:00am May 18, 2017 7:03pm Problems Active Problems Problem Classification Problem Date Documented Da te Episodic/Chronic Acute and unspecified renal failure (20 sources) Acute renal failure syndrome; Translations: [Acute kidney failure, unspecified] Onset: 8 12-23-2017 Episodic Acute bronchitis (20 sources) Acute bronchitis; Translations: [Acute bronchitis, unspecified] Episodic Acute cerebrovascular disease (20 sources) Cerebrovascular accident; Translations: [Cerebral infarction, unspecified] Onset: 8 12-22-2017 Chronic Comment on above: Distal left vertebra l artery occlusion. NO DEFICITS Adjustment disorders (2 sources) Adjustment disorder; Translations: [Adjustment disorder, unspecified] Onset: 3 Resolved: 5 10-17-2014 Chronic Cardiac dysrhythmias (20 sources) Ventricular premature beats; Translations: [Premature atrial contraction] Onset: 1 09-10-2010 Chronic Comment on above: S/P permanent pacema ker 05/13/2017; DCCV in 2018; Cardiac dysrhythmias (20 sources) Sinus bradycardia; Translations: [Bradycardia, unspecified] 12-22-2017 Episodic Cardiac dysrhythmias (2 sources) Cardiac dysrhythmias Onset: 8 Chronic kidney disease (20 sources) End stage renal disease; Translations: [Chronic renal insufficiency] Onset: 9 02-26-2020 Chronic Chronic obstructive pulmonary disease and bronchiectasis (2 sources) Acute exacerbation of chronic obstructive airways disease; Translations: [Chronic obstructive pulmonary disease with (acute) exacerbation] Onset: 2 Resolved: 3 02-02-2012 Chronic Complications of surgical procedures or medical care (20 sources) Postoperative complete heart block; Translations: [Other postprocedural complications and disorders of the circulatory system, not elsewhere classified] Onset: 5 09-19-2024 Episodic Conduction disorders (20 sources) Mobitz type I incomplete atrioventricular block; Translations: [Heart block ] Onset: 1 Resolved: 5 09-10-2010 Chronic Comment on above: [employer] [facility] [employer]; 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 pacemaker implanted 01/19/18 @ [facility] Congestive heart failure; nonhypertensive (20 sources) Congestive heart failure; Translations: [Heart failure, unspecified] 04-24-2023 Chronic Coronary atherosclerosis and other heart disease (20 sources) Angina pectoris; Translations: [Atherosclerotic heart disease of [place] coronary artery without angina pectoris] Onset: 1 Resolved: 5 09-10-2010 Chronic Coronary atherosclerosis and other heart disease (1 source) Coronary atherosclerosis and other heart disease Onset: 8 Deficiency and other anemia (1 source) Iron deficiency anemia secondary to blood loss (chronic); Translations: [IRON DEFIC ANEMIA SEC BL] Onset: 7 Chronic Deficiency and other anemia (20 sources) Pancytopenia; Translations: [Other pancytopenia] 12-23-2017 Chronic Deficiency and other anemia (20 sources) Iron deficiency anemia; Translations: [Anemia, unspecified] Onset: 1 07-18-2010 Episodic Deficiency and other anemia (20 sources) Chronic anemia; Translations: [Anemia, unspecified] 12-23-2017 Episodic Deficiency and other anemia (20 sources) Macrocytic anemia; Translations: [Nutritional anemia, unspecified] 12-30-2017 Episodic Deficiency and other anemia (20 sources) Anemia; Translations: [Anemia, unspecified] 03-31-2023 Episodic Deficiency and other anemia (3 sources) Anemia, unspecified; Translations: [Anemia, unspecified] 03-31-2023 Episodic Deficiency and other anemia (1 source) Deficiency and other anemia Onset: 8 Diabetes mellitus without complication (2 sources) Diabetes mellitus; Translations: [Type 2 diabetes mellitus without complications] Onset: 1 Resolved: 2 09-10-2010 Chronic Disorders of lipid metabolism (20 sources) Hyperlipidemia; Translations: [Hyperlipidemia, unspecified] Onset: 2 07-17-2011 Chronic Essential hypertension (20 sources) Hypertensive episode; Translations: [Hypertensive disorder] Onset: 1 Resolved: 5 10-17-2014 Chronic Fluid and electrolyte disorders (20 sources) Hyperkalemia; Translations: [Hyperkalemia] Onset: 5 02-26-2020 Episodic Fracture of upper limb (20 sources) Fracture of phalanx of finger; Translations: [Fracture of unspecified phalanx of unspecified finger, initial encounter for closed fracture] 08-14-2022 Episodic Gastroduodenal ulcer (20 sources) Personal history of peptic ulcer disease; Translations: [Acute gastric ulcer] Onset: 8 09-03-2021 Episodic Gastrointestinal hemorrhage (1 source) Chronic or unspecified gastrojejunal ulcer with hemorrhage; Translations: [CHRON/UNS GASTROJEJUN UL] Onset: 7 Chronic Gastrointestinal hemorrhage (20 sources) Melena; Translations: [Gastrointestinal hemorrhage] Onset: 7 12-22-2017 Episodic Heart valve disorders (20 sources) Aortic valve stenosis; Translations: [Mitral and aortic stenosis] Onset: 1 Resolved: 5 10-17-2014 Chronic Comment on above: aortic valve with ro ot debridement and replacement with 26mm aortic homograft 01/19/[address] [facility] Trifec ta pericardial valve and 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 ligation with 40 mm Atricure Atriclip with Dr. Barrientos of [facility] 05/07/2017; 05/07/17; aortic valve with root debridement and replacement with 26mm aortic homograft 01/19/18 @ [facility] [address] 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 Immunizations and screening for infectious disease (20 sources) Patient encounter status; Translations: [Encounter for screening for other viral diseases] Episodic Late effects of cerebrovascular disease (20 sources) 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; Translations: [Dysarthria following cerebral infarction] 02-09-2020 Chronic Nutritional deficiencies (1 source) Vitamin D deficiency; Translations: [Vitamin D deficiency] Onset: 5 10-18-2014 Chronic Occlusion or stenosis of precerebral arteries (20 sources) Bilateral atherosclerosis of carotid arteries; Translations: [Occlusion and stenosis of bilateral carotid arteries] 02-11-2021 Chronic Open wounds of extremities (20 sources) Laceration of left index finger; Translations: [Laceration without foreign body of left index finger without damage to nail, initial encounter] 08-14-2022 Episodic Other aftercare (20 sources) Long-term current use of 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; Translations: [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 (current) use of 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s] 12-22-2017 Episodic Other aftercare (20 sources) Drug therapy finding; Translations: [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 (current) use of 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s] 08-15-2022 Episodic Other aftercare (20 sources) Postoperative visit; Translations: [Encounter for other specified surgical aftercare] 08-15-2022 Episodic Other aftercare (3 sources) [facility] (current) use of 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s; Translations: [Long-term (current) use of 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s] 03-31-2023 Episodic Other aftercare (2 sources) Other skilled nursing (current) drug therapy; Translations: [Other skilled nursing (current) drug therapy] Onset: Episodic Other and ill-defined heart disease (20 sources) Left ventricular hypertrophy; Translations: [Cardiomegaly] Onset: 5 12-27-2014 Chronic Other and ill-defined heart disease (20 sources) Ventricular hypertrophy ; Translations: [Cardiomegaly] 12-22-2017 Chronic Other circulatory disease (20 sources) Carotid bruit; Translations: [Other specified symptoms and signs involving the circulatory and respiratory systems] Onset: 7 12-08-2016 Episodic Other circulatory disease (20 sources) History of cerebrovascular accident; Translations: [Personal history of transient ischemic attack (TIA), and cerebral infarction without residual deficits] 05-27-2022 Episodic Other circulatory disease (4 sources) Personal history of transient ischemic attack (TIA), and cerebral infarction without residual deficits; Translations: [Personal history of transient ischemic attack (TIA), and cerebral infarction without residual deficits] Episodic Other diseases of kidney and ureters (20 sources) Kidney disease; Translations: [Disorder of kidney and ureter, unspecified] 09-03-2021 Episodic Other hematologic conditions (20 sources) Hyperglobulinemia; Translations: [Abnormality of globulin] 12-23-2017 Episodic Other hematologic conditions (2 sources) Red blood cell disorder; Translations: [Other abnormality of red blood cells] 06-25-2023 Episodic Other inflammatory condition of skin (1 source) Psoriasis vulgaris; Translations: [Psoriasis vulgaris] Onset: Chronic Other injuries and conditions due to external causes (20 sources) Wound hemorrhage; Translations: [Other injury of unspecified body region, initial encounter] 08-15-2022 Episodic Other lower respiratory disease (20 sources) Dyspnea; Translations: [Shortness of breath] Onset: 1 Resolved: 5 10-17-2014 Episodic Other lower respiratory disease (11 sources) Hypoxia; Translations: [Hypoxemia] 03-31-2023 Episodic Other lower respiratory disease (11 sources) Hypoxemia; Translations: [Hypoxemia] 03-31-2023 Episodic Other lower respiratory disease (20 sources) Orthopnea; Translations: [Orthopnea] 04-24-2023 Episodic Other lower respiratory disease (20 sources) Dyspnea on exertion; Translations: [Other forms of dyspnea] 06-17-2023 Episodic Other lower respiratory disease (19 sources) Hypoxemia; Translations: [Hypoxemia] 12-26-2023 Episodic Other nervous system disorders (20 sources) Polyneuropathy; Translations: [Polyneuropathy, unspecified] 02-09-2020 Chronic Other nervous system disorders (20 sources) Carpal tunnel syndrome; Translations: [Carpal tunnel syndrome, bilateral upper limbs] 02-09-2020 Chronic Other nervous system disorders (4 sources) Carpal tunnel syndrome, bilateral upper limbs; Translations: [Carpal tunnel syndrome] Chronic Other nervous system disorders (4 sources) Polyneuropathy, unspecified; Translations: [Unspecified hereditary and idiopathic peripheral neuropathy] Chronic Other nervous system disorders (1 source) Bilateral carpal tunnel syndrome; Translations: [Carpal tunnel syndrome, bilateral upper limbs] 02-09-2020 Chronic Other nervous system disorders (20 sources) Postoperative pain ; Translations: [Other acute postprocedural pain] 11-20-2022 Episodic Other skin disorders (20 sources) Infected sebaceous cyst; Translations: [Sebaceous cyst] Onset: 2 Resolved: 4 03-25-2013 Episodic Other skin disorders (20 sources) Hidradenitis suppurativa; Translations: [Hidradenitis suppurativa] 07-16-2024 Episodic Other upper respiratory infections (20 sources) Acute laryngitis; Translations: [Acute upper respiratory infection] Onset: 1 Resolved: 2 12-22-2011 Episodic Pneumonia (except that caused by tuberculosis or sexually transmitted disease) (20 sources) Community acquired pneumonia; Translations: [Pneumonia, unspecified organism] 03-31-2023 Episodic Residual codes; unclassified (20 sources) Edema of left lower limb; Translations: [Localized edema] 10-09-2021 Episodic Residual codes; unclassified (20 sources) Harmful pattern of use of nicotine; Translations: [Tobacco use] 12-22-2017 Episodic Residual codes; unclassified (3 sources) Localized edema; Translations: [Edema] Episodic Residual codes; unclassified (19 sources) Other specified health status; Translations: [Failure of outpatient treatment] 01-06-2024 Episodic Retinal detachments; defects; vascular occlusion; and retinopathy (1 source) Unspecified retinal vascular occlusion; Translations: [Unspecified retinal vascular occlusion] Onset: 7 12-08-2016 Chronic Skin and subcutaneous tissue infections (20 sources) Cellulitis; Translations: [Abscess] Onset: 2 Resolved: 3 03-03-2012 Episodic Substance-related disorders (20 sources) Tobacco dependence syndrome; Translations: [Nicotine dependence, other tobacco product, uncomplicated] Onset: 1 09-10-2010 Chronic Thyroid disorders (3 sources) Hypothyroidism; Translations: [Hypothyroidism, unspecified] Onset: 1 07-18-2010 Chronic Unclassified (2 sources) Body mass index (BMI) 33.0-33.9, adult; Translations: [Body mass index (BMI) 36.0-36.9, adult] Onset: 3 01-09-2014 Chronic Unclassified (20 sources) Encounter for screening for malignant neoplasm of prostate; Translations: [Electrocardiogram abnormal] Onset: 1 07-01-2013 Episodic Unclassified (1 source) Bypass of stomach; Translations: [...] Unclassified (1 source) Atherosclerotic heart disease of [place] coronary artery without angina pectoris / I25.10(ICD-10) [...] (1 source) Follow-up / 145() Onset: 8 Unclassified (2 sources) Transition of care; Translations: [Transition of care performed with sharing of clinical summary] Onset: 8 02-04-2018 Unclassified (20 sources) Abscess of left buttock; Translations: [L02.31 - Cutaneous abscess of buttock,L05.01 - Pilonidal cyst with abscess] Urinary tract infections (20 sources) Urinary tract infectious disease; Translations: [Urinary tract infection, site not specified] 12-22-2023 Episodic Viral infection (19 sources) Disease caused by 2019-nCoV; Translations: [COVID-19] 12-17-2023 Episodic Past or Other Problems Problem Classification Problem Date Documented Da te Episodic/Chronic Administrative/social admission (2 sources) Discharge status; Translations: [Other problems related to medical facilities and other health care] Onset: 01-27-2018 02-04-2018 Episodic Allergic reactions (1 source) Allergy status to penicillin; Translations: [ALLERGY STATUS TO PENICI] Onset: 08-17-2016 Episodic Biliary tract disease (20 sources) Biliary calculus; Translations: [Calculus of gallbladder without cholecystitis without obstruction] Onset: 09-08-2024 09-03-2023 Episodic Coagulation and hemorrhagic disorders (20 sources) Petechiae of skin; Translations: [Spontaneous ecchymoses] Onset: 08-18-2024 08-31-2024 Episodic Genitourinary symptoms and ill-defined conditions (20 sources) Acute retention of urine ; Translations: [Other retention of urine] Onset: 04-11-2024 12-26-2023 Episodic Heart valve disorders (2 sources) Heart [...] than malignant neoplasm] Onset: 06-09-2017 Episodic Other fractures (2 sources) Fracture of rib; Translations: [Fracture of one rib, right side] Onset: 12-01-2012 Resolved: 10-17-2014 12-01-2012 Episodic Other gastrointestinal disorders (1 source) Bariatric surgery status; Translations: [BARIATRIC SURGERY STATUS] Onset: 08-17-2016 Episodic Other hematologic conditions (1 source) Other abnormality of red blood cells; Translations: [Other abnormality of red blood cells] Onset: 07-02-2023 Episodic Other lower respiratory disease (3 sources) Other forms of dyspnea; Translations: [Other respiratory abnormalities] Onset: 10-17-2024 06-17-2023 Episodic Other nervous system disorders (2 sources) Acute postoperative pain; Translations: [Other acute postprocedural pain] Onset: 01-19-2018 02-04-2018 Episodic Other non-traumatic joint disorders (2 sources) Pain in wrist; Translations: [Pain in right wrist] Onset: 09-30-2010 Resolved: 10-22-2010 09-30-2010 Episodic Otitis media and related conditions (2 sources) Acute otitis media; Translations: [Otitis media, unspecified, left ear] Onset: 12-22-2011 Resolved: 02-02-2012 02-02-2012 Episodic Haley-; endo-; and myocarditis; cardiomyopathy (except that caused by tuberculosis or sexually transmitted disease) (3 sources) Acute and subacute infective endocarditis; Translations: [Subacute bacterial endocarditis ] Onset: 01-07-2018 02-15-2018 Episodic Pleurisy; pneumothorax; pulmonary collapse (2 sources) Hemothorax; Translations: [Hemothorax] Onset: 01-29-2018 02-04-2018 Episodic Residual codes; unclassified (20 sources) History of tricuspid valve repair; Translations: [Other specified postprocedural states] Onset: 12-21-2017 01-29-2021 Episodic Comment on above: w/ JOSE stitch Residual codes; unclassified (8 sources) Other specified postprocedural states; Translations: [Personal history of surgery to heart and great vessels, presenting hazards to health] Onset: 12-21-2017 Episodic Screening or history of mental health and substance abuse (1 source) Personal history of nicotine dependence; Translations: [Personal history of nicotine dependence] Onset: 05-07-2017 Episodic Unclassified (1 source) Other specified postprocedural states; Translations: [Other specified postprocedural states] Onset: 05-07-2017 Episodic Unclassified (1 source) Follow-up; Translations: [Follow-up] Onset: 06-04-2017 Unclassified (1 source) Counseling, unspecified; Translations: [Counseling, unspecified] Onset: 05-07-2017 Unclassified (1 source) Encounter for other preprocedural examination; Translations: [Encounter for other preprocedural examination] Onset: 04-20-2017 Unclassified (20 sources) 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 ligation 05-05-2018 Comment on above: with 40 mm Atricure Atriclip with Dr. Barrientos of [facility] 05/07/2017; Results Test Name Value Interpretation Reference Range Facility Hepatitis B Core Ab Totalon 01-14-2025 HEP B CORE,TOT Negative Normal Negative [facility] Comment on above: Result Comment: Perf ormed at: - [facility] [address], [place] [id number] Director: Kaiden Warner PhD, Phone: [phone] Performed By: #### L 3100.0460, L3890.6301, L3890.6102, L100.0100, L3890.6202, L500.3400, L3400.8000 ####[facility] [address] [place], [place], [phone] Quantiferon TB-Gold+on 01-14 QFT MITOGEN REUBEN > 10.[address] [facility] Comment on above: Performed By: #### L 3100.0460, L3890.6301, L3890.6102, L100.0100, L3890.6202, L500.3400, L3400.8000 ####[facility] [address] [place], [place], [id number] QFT NIL VALUE 0.04 IU/mL Normal . [facility] Comment on above: Performed By: #### L 3100.0460, L3890.6301, L3890.6102, L100.0100, L3890.6202, L500.3400, L3400.8000 ####[facility] [address] [place], [place], [id number] QFT TB GOLD+ Comment Normal . [facility] Comment on above: Result Comment: Jhonatan tiFERON-TB Gold Plus is a qualitative indirect test forM tuberculosis infection (including disease) and isintended for use in conjunction with risk assessment,radiography, and other medical and diagnostic evaluations.The QuantiFERON-TB Gold Plus result is determined bysubtracting the Nil value from either TB antigen (Ag)value. The Mitogen tube serves as a control for the test. Performed By: #### L 3100.0460, L3890.6301, L3890.6102, L100.0100, L3890.6202, L500.3400, L3400.8000 ####[facility] [address] [place], [address] QFT TB POS CRIT Negative Normal Negative [facility] Comment on above: Result Comment: No r esponse to M tuberculosis antigens detected.Infection with M tuberculosis is unlikely, but high riskindividuals should be considered for additional testing(ATS/IDSA/CDC Clinical Practice Guidelines, 2017). Thereference range is an Antigen minus Nil result of <0.35IU/mL.The specimen received for QuantiFERON testing was incubatedby the ordering institution. Specific procedures outlinedin our Directory of Services and in the package insert forthe QuantiFERON Gold (In Tube) test must be followed toenable for proper stimulation of cells for the productionof interferon gamma. Chemiluminescence immunoassaymethodology Performed By: #### L 3100.0460, L3890.6301, L3890.6102, L100.0100, L3890.6202, L500.3400, L3400.8000 ####[facility] [address] [place], [address] QFT TB1+ AG REUBEN 0.05 IU/mL Normal . [facility] Comment on above: Performed By: #### L 3100.0460, L3890.6301, L3890.6102, L100.0100, L3890.6202, L500.3400, L3400.8000 ####[facility] [address] [place], [address] QFT TB2+ AG REUBEN 0.05 IU/mL Normal . [facility] Comment on above: Performed By: #### L 3100.0460, L3890.6301, L3890.6102, L100.0100, L3890.6202, L500.3400, L3400.8000 ####[facility] [address] [place], [place], [id number] CBC W/Diff, Automatedon 10-2 Absolute Lymph 0.81 X10 3/uL Low 0.83-4.[address] [facility] Comment on above: Performed By: #### L 3100.0460, L3890.6301, L3890.6102, L100.0100, L3890.6202, L500.3400, L3400.8000 ####[facility] [address] [place], [address] Absolute Neut 1.8 X10 3/uL Low 2.0-7.[address] [facility] Comment on above: Performed By: #### L 3100.0460, L3890.6301, L3890.6102, L100.0100, L3890.6202, L500.3400, L3400.8000 ####[facility] [address] [place], [address] Basophils/100 WBC (Bld) 1.2 % High 0-[address] [facility] Comment on above: Performed By: #### L 3100.0460, L3890.6301, L3890.6102, L100.0100, L3890.6202, L500.3400, L3400.8000 ####[facility] [address] [place], [address] Eosinophils/100 WBC (Bld) 4.8 % Normal 0-[address] [facility] Comment on above: Performed By: #### L 3100.0460, L3890.6301, L3890.6102, L100.0100, L3890.6202, L500.3400, L3400.8000 ####[facility] [address] [place], [address] Erythrocyte distribution width (RBC) [Ratio] 16.4 % High 11.6-14.[address] [facility] Comment on above: Performed By: #### L 3100.0460, L3890.6301, L3890.6102, L100.0100, L3890.6202, L500.3400, L3400.8000 ####[facility] [address] [place], [address] Hematocrit (Bld) [Volume fraction] 29.0 % Low 40-[address] [facility] Comment on above: Performed By: #### L 3100.0460, L3890.6301, L3890.6102, L100.0100, L3890.6202, L500.3400, L3400.8000 ####[facility] [address] [place], [address] Hemoglobin (Bld) [Mass/Vol] 8.5 g/dL Low 13.0-16.[address] [facility] Comment on above: Performed By: #### L 3100.0460, L3890.6301, L3890.6102, L100.0100, L3890.6202, L500.3400, L3400.8000 ####[facility] [address] [place], [address] IG% 0.600 Normal 0.0-0.[address] [facility] Comment on above: Result Comment: IG% - Immature Granulocytes (promyelocytes, myelocytes andmetamyelocytes) > 1% indicates that a LEFT SHIFT is Present. Performed By: #### L 3100.0460, L3890.6301, L3890.6102, L100.0100, L3890.6202, L500.3400, L3400.8000 ####[facility] [address] [place], [address] Lymphocytes/100 WBC (Bld) 24.5 % Normal 19-[address] [facility] Comment on above: Performed By: #### L 3100.0460, L3890.6301, L3890.6102, L100.0100, L3890.6202, L500.3400, L3400.8000 ####[facility] [address] [place], [address] MCH (RBC) [Entitic mass] 29.3 pg Normal 27.0-32.[address] [facility] Comment on above: Performed By: #### L 3100.0460, L3890.6301, L3890.6102, L100.0100, L3890.6202, L500.3400, L3400.8000 ####[facility] [address] [place], [address] MCHC (RBC) [Mass/Vol] 29.3 g/dL Low 32-36 [facility] Comment on above: Performed By: #### L 3100.0460, L3890.6301, L3890.6102, L100.0100, L3890.6202, L500.3400, L3400.8000 ####[facility] [address] [place], [address] MCV (RBC) [Entitic vol] 100.0 fL High 80-[address] [facility] Comment on above: Performed By: #### L 3100.0460, L3890.6301, L3890.6102, L100.0100, L3890.6202, L500.3400, L3400.8000 ####[facility] [address] [place], [address] Monocytes/100 WBC (Bld) 13.3 % High 0-[address] [facility] Comment on above: Performed By: #### L 3100.0460, L3890.6301, L3890.6102, L100.0100, L3890.6202, L500.3400, L3400.8000 ####[facility] [address] [place], [address] Neutrophils/100 WBC (Bld) 55.6 % Normal 47-[address] [facility] Comment on above: Performed By: #### L 3100.0460, L3890.6301, L3890.6102, L100.0100, L3890.6202, L500.3400, L3400.8000 ####[facility] [address] [place], [address] Nucleated RBC (Bld) [#/Vol] 0 10*3/uL Normal 0-[address] [facility] Comment on above: Performed By: #### L 3100.0460, L3890.6301, L3890.6102, L100.0100, L3890.6202, L500.3400, L3400.8000 ####[facility] [address] [place], [address] Platelet mean volume (Bld) [Entitic vol] 10.0 fL Normal 6.2-12.[address] [facility] Comment on above: Performed By: #### L 3100.0460, L3890.6301, L3890.6102, L100.0100, L3890.6202, L500.3400, L3400.8000 ####[facility] [address] [place], [address]( Platelets (Bld) [#/Vol] 125 10*3/uL Low 150-[address] [facility] Comment on above: Performed By: #### L 3100.0460, L3890.6301, L3890.6102, L100.0100, L3890.6202, L500.3400, L3400.8000 ####[facility] [address] [place], [address] RBC (Bld) [#/Vol] 2.90 10*6/uL Low 4.6-6.2 [facility] Comment on above: Performed By: #### L 3100.0460, L3890.6301, L3890.6102, L100.0100, L3890.6202, L500.3400, L3400.8000 ####[facility] [address] [place], [address] RDW SD 60.2 fl High 35.1-43.[address] [facility] Comment on above: Performed By: #### L 3100.0460, L3890.6301, L3890.6102, L100.0100, L3890.6202, L500.3400, L3400.8000 ####[facility] [address] [place], [address] WBC (Bld) [#/Vol] 3.3 10*3/uL Low 4.4-11.0 [facility] Comment on above: Performed By: #### L 3100.0460, L3890.6301, L3890.6102, L100.0100, L3890.6202, L500.3400, L3400.8000 ####[facility] [address] [facility] [place], [address] Hepatitis B Surface Antibody on 01-11-2025 HEP B Surf Ab Non-Reactive Normal [facility] Comment on above: Result Comment: <8.5 mIU/mL: Non-Reactive8.5<= x <11.5 mIU/mL: Indeterminate>=11.5 mIU/mL: Reactive Non Reactive: Inconsistent with immunity less than <10 mIU/mL Reactive: Consistent with immunity greater than or equal to 10 mIU/mL Performed By: #### L 3100.0460, L3890.6301, L3890.6102, L100.0100, L3890.6202, L500.3400, L3400.8000 ####[facility] [address] [facility] [place], [address] Hepatitis C Antibodyon 01-11 Hepatitis C Ab Non-Reactive Normal Nonreactive [facility] Comment on above: Result Comment: Reac tive: Presumptive evidence of antibodies to HCV. [facility] recommendations for supplemental testing.Non-Reactive: Antibodies to HCV were not detected; does notexclude the possibility of exposure to HCVReactive Results are presumptive evidence of antibodies toHCV. Follow CDC recommendations for supplemental testing.Order confirmation testing: HCV Quant by PCR testing -[facility] #[id number] Non Reactive: < 0.8 Equivocal: >/= 0.8 to < 1.0 Reactive: >/= 1.0The CDC requires that a reactive/equivocal HCV antibodyresult be sent out for confirmation. HCV Quant by PCRtesting. Performed By: #### L 3100.0460, L3890.6301, L3890.6102, L100.0100, L3890.6202, L500.3400, L3400.8000 ####[facility] [address] [place], [address] L3890.6102on 01-11-2025 HEP B Surf Ag Non-Reactive Normal Nonreactive [facility] Comment on above: Result Comment: Reac tive: Presumptive evidence of HBV. Repeatedly reactivesamples must be confirmed using a neutralization test([employer] HBsAg Confirmatory Test)Non-Reactive: HBsAg not detected; does not exclude thepossibility of exposure to HBV Performed By: #### L 3100.0460, L3890.6301, L3890.6102, L100.0100, L3890.6202, L500.3400, L3400.8000 ####[facility] [address] [place], [place], [id number] Liver Profileon 01-11-2025 Albumin [Mass/Vol] 3.9 g/dL Normal 3.4-4.8 [facility] Comment on above: Performed By: #### L 3100.0460, L3890.6301, L3890.6102, L100.0100, L3890.6202, L500.3400, L3400.8000 ####[facility] [address] [place], [place], [id number] ALK PHOS 206 U/L High 40-[address] [facility] Comment on above: Performed By: #### L 3100.0460, L3890.6301, L3890.6102, L100.0100, L3890.6202, L500.3400, L3400.8000 ####[facility] [address] [place], [place], [id number] ALT [Catalytic activity/Vol] 22 U/L Normal <=[address] [facility] Comment on above: Performed By: #### L 3100.0460, L3890.6301, L3890.6102, L100.0100, L3890.6202, L500.3400, L3400.8000 ####[facility] [address] [place], [place], [phone] AST [Catalytic activity/Vol] 30 U/L Normal <=[address] [facility] Comment on above: Performed By: #### L 3100.0460, L3890.6301, L3890.6102, L100.0100, L3890.6202, L500.3400, L3400.8000 ####[facility] [address] [place], [address] Bilirubin [Mass/Vol] 0.43 mg/dL Normal 0.00-1.30 [facility] Comment on above: Performed By: #### L 3100.0460, L3890.6301, L3890.6102, L100.0100, L3890.6202, L500.3400, L3400.8000 ####[facility] [address] [place], [place], [phone](388) Bilirubin.direct [Mass/Vol] 0.22 mg/dL Normal 0.00-0.[address] [facility] Comment on above: Performed By: #### L 3100.0460, L3890.6301, L3890.6102, L100.0100, L3890.6202, L500.3400, L3400.8000 ####[facility] [address] [place], [place], [phone](215) Globulin (S) [Mass/Vol] 3.8 g/dL Normal 2.2-4.2 [facility] Comment on above: Performed By: #### L 3100.0460, L3890.6301, L3890.6102, L100.0100, L3890.6202, L500.3400, L3400.8000 ####[facility] [address] [place], [address] T PROT 7.7 g/dL Normal 5.9-8.[address] [facility] Comment on above: Performed By: #### L 3100.0460, L3890.6301, L3890.6102, L100.0100, L3890.6202, L500.3400, L3400.8000 ####[facility] [address] [place], [address] Anion gap in Serum or Plasma Ordered By: Al Ramirez on 12-08-2024 Anion gap [Moles/Vol] 14 mmol/L 5-15 [facility] BUN/creatinine ratioOrdered By: Al Ramirez on 12-08-2024 Urea nitrogen/Creatinine [Mass ratio] 21.8 mg/mg High 10-[address] [facility] Carbon dioxide, total [Moles /volume] in Central venous bloodOrdered By: Al Ramirez on 12-08-2024 CO2 [Moles/Vol] 18.8 mmol/L Low 21.0-32.[address] [facility] Chloride assayOrdered By: Leon Ramirez on 12-08-2024 Chloride [Moles/Vol] 107 mmol/L 98-108 [facility] Glomerular filtration rate ( GFR) estimation/1.73 sq m using serum, plasma, or whole bOrdered By: Al Ramirez on 12-08-2024 GFR/1.73 sq M.predicted among non-blacks MDRD (S/P/Bld) [Vol rate/Area] 32 mL/min/{1.73_m2} Low >[address] [facility] Comment on above: mL/min/1.73m2 CKD-EP I Creatinine Equation (2020) Potassium measurement (mass/ volume)Ordered By: Al Ramirez on 12-08-2024 Potassium (Unsp spec) [Mass/Vol] 4.7 mmol/L 3.3-5.[address] [facility] Renal Profileon 12-08-2024 Albumin [Mass/Vol] 3.6 g/dL Normal 3.4-4.8 [facility] Comment on above: Performed By: #### L 500.3600 ####[facility] [address] [place], [address] BUN/CRE 21.8 RATIO High 10-[address] [facility] Comment on above: Performed By: #### L 500.3600 ####[facility] [address] [place], [address] Calcium [Mass/Vol] 8.7 mg/dL Normal 7.6-11.0 [facility] Comment on above: Performed By: #### L 500.3600 ####[facility] [address] [place], [address] Chloride [Moles/Vol] 107 mmol/L Normal 98-108 [facility] Comment on above: Performed By: #### L 500.3600 ####[facility] [address] [place], [address] CO2 [Moles/Vol] 18.8 mmol/L Low 21.0-32.[address] [facility] Comment on above: Performed By: #### L 500.3600 ####[facility] [address] [place], [address] Creatinine [Mass/Vol] 2.17 mg/dL High 0.70-1.20 [facility] Comment on above: Performed By: #### L 500.3600 ####[facility] [address] [place], [address] GAP 14 Normal 5-[address] [facility] Comment on above: Performed By: #### L 500.3600 ####[facility] [address] [place], [address] GFR/1.73 sq M.predicted among non-blacks MDRD (S/P/Bld) [Vol rate/Area] 32 mL/min/{1.73_m2} Low >[address] [facility] Comment on above: Result Comment: mL/m in/1.73m2 CKD-EPI Creatinine Equation (2020) Performed By: #### L 500.3600 ####[facility] [address] [place], [address] Glucose [Mass/Vol] 103 mg/dL High 70-99 [facility] Comment on above: Performed By: #### L 500.3600 ####[facility] [address] [place], [address] Phosphate [Mass/Vol] 4.6 mg/dL High 2.7-4.5 [facility] Comment on above: Performed By: #### L 500.3600 ####[facility] [address] [place], [address] Potassium [Moles/Vol] 4.7 mmol/L Normal 3.3-5.1 [facility] Comment on above: Performed By: #### L 500.3600 ####[facility] [address] [place], [address] Sodium [Moles/Vol] 140 mmol/L Normal 133-145 [facility] Comment on above: Performed By: #### L 500.3600 ####[facility] [address] [place], [address] Urea nitrogen [Mass/Vol] 47 mg/dL High 4-[address] [facility] Comment on above: Performed By: #### L 500.3600 ####[facility] [address] [place], [address] Serum creatinine measurement (mass/volume)Ordered By: Al Ramirez on 12-08-2024 Creatinine [Mass/Vol] 2.17 mg/dL High 0.70-1.20 [facility] Serum glucose measurement (m ass/volume)Ordered By: Al Ramirez on 12-08-2024 Glucose [Mass/Vol] 103 mg/dL High 70-99 [facility] Serum or plasma albumin lorena urement (mass/volume)Ordered By: Al Ramirez on 12-08-2024 Albumin [Mass/Vol] 3.6 g/dL 3.4-4.8 [facility] Serum or plasma calcium lorena urement (mass/volume)Ordered By: Al Ramirez on 12-08-2024 Calcium [Mass/Vol] 8.7 mg/dL 7.6-11.0 [facility] Serum or plasma urea nitroge n measurement (mass/volume)Ordered By: Al Ramirez on 12-08-2024 Urea nitrogen [Mass/Vol] 47 mg/dL High 4-[address] [facility] Sodium levelOrdered By: Mahad Ramirez on 12-08-2024 Sodium [Moles/Vol] 140 mmol/L 133-145 [facility] Anion gap in Serum or Plasma Ordered By: Al Ramirez on 11-17-2024 Anion gap [Moles/Vol] 12 mmol/L 5-15 [facility] BUN/creatinine ratioOrdered By: Al Ramirez on 11-17-2024 Urea nitrogen/Creatinine [Mass ratio] 22.7 mg/mg High 10-[address] [facility] Basic Metabolic Profile (BMP )on 11-17-2024 BUN/CRE 22.7 RATIO High - [facility] Comment on above: Performed By: #### L 100.0500, L501.0900, L500.2500 ####[facility] [address] [place], [address] Calcium [Mass/Vol] 9.0 mg/dL Normal 7.6-11.0 [facility] Comment on above: Performed By: #### L 100.0500, L501.0900, L500.2500 ####[facility] [address] [place], [address] Chloride [Moles/Vol] 106 mmol/L Normal 98-108 [facility] Comment on above: Performed By: #### L 100.0500, L501.0900, L500.2500 ####[facility] [address] [place], [address] CO2 [Moles/Vol] 20.0 mmol/L Low 21.0-32.[address] [facility] Comment on above: Performed By: #### L 100.0500, L501.0900, L500.2500 ####[facility] [address] [place], [address] Creatinine [Mass/Vol] 2.37 mg/dL High 0.70-1.20 [facility] Comment on above: Performed By: #### L 100.0500, L501.0900, L500.2500 ####[facility] [address] [place], [address] GAP 12 Normal 5-[address] [facility] Comment on above: Performed By: #### L 100.0500, L501.0900, L500.2500 ####[facility] [address] [place], [address] GFR/1.73 sq M.predicted among non-blacks MDRD (S/P/Bld) [Vol rate/Area] 29 mL/min/{1.73_m2} Low >[address] [facility] Comment on above: Result Comment: mL/m in/1.73m2 CKD-EPI Creatinine Equation (2020) Performed By: #### L 100.0500, L501.0900, L500.2500 ####[facility] [address] [place], [address] Glucose [Mass/Vol] 221 mg/dL High 70-99 [facility] Comment on above: Performed By: #### L 100.0500, L501.0900, L500.2500 ####[facility] [address] [place], [address] Potassium [Moles/Vol] 5.9 mmol/L High 3.3-5.1 [facility] Comment on above: Performed By: #### L 100.0500, L501.0900, L500.2500 ####[facility] [address] [place], [address] Sodium [Moles/Vol] 138 mmol/L Normal 133-145 [facility] Comment on above: Performed By: #### L 100.0500, L501.0900, L500.2500 ####[facility] [address] [place], [address] Urea nitrogen [Mass/Vol] 54 mg/dL High 4-[address] [facility] Comment on above: Performed By: #### L 100.0500, L501.0900, L500.2500 ####[facility] [address] [place], [address] CBC-Complete Blood Cnt No ffon 11-17-2024 Erythrocyte distribution width (RBC) [Ratio] 15.5 % High 11.6-14.[address] [facility] Comment on above: Performed By: #### L 100.0500, L501.0900, L500.2500 ####[facility] [address] [place], [address] Hematocrit (Bld) [Volume fraction] 31.7 % Low 40-[address] [facility] Comment on above: Performed By: #### L 100.0500, L501.0900, L500.2500 ####[facility] [address] [place], [address] Hemoglobin (Bld) [Mass/Vol] 9.1 g/dL Low 13.0-16.[address] [facility] Comment on above: Performed By: #### L 100.0500, L501.0900, L500.2500 ####[facility] [address] [place], [address] MCH (RBC) [Entitic mass] 29.4 pg Normal 27.0-32.[address] [facility] Comment on above: Performed By: #### L 100.0500, L501.0900, L500.2500 ####[facility] [address] [place], [address] MCHC (RBC) [Mass/Vol] 28.7 g/dL Low 32-36 [facility] Comment on above: Performed By: #### L 100.0500, L501.0900, L500.2500 ####[facility] [address] [place], [address] MCV (RBC) [Entitic vol] 102.6 fL High 80-[address] [facility] Comment on above: Performed By: #### L 100.0500, L501.0900, L500.2500 ####[facility] [address] [place], [address] Platelet mean volume (Bld) [Entitic vol] 10.0 fL Normal 6.2-12.[address] [facility] Comment on above: Performed By: #### L 100.0500, L501.0900, L500.2500 ####[facility] [address] [place], [address] Platelets (Bld) [#/Vol] 129 10*3/uL Low 150-[address] [facility] Comment on above: Performed By: #### L 100.0500, L501.0900, L500.2500 ####[facility] [address] [place], [address] RBC (Bld) [#/Vol] 3.09 10*6/uL Low 4.6-6.2 [facility] Comment on above: Performed By: #### L 100.0500, L501.0900, L500.2500 ####[facility] [address] [place], [address] RDW SD 57.9 fl High 35.1-43.[address] [facility] Comment on above: Performed By: #### L 100.0500, L501.0900, L500.2500 ####[facility] [address] [place], [address] WBC (Bld) [#/Vol] 4.2 10*3/uL Low 4.4-11.0 [facility] Comment on above: Performed By: #### L 100.0500, L501.0900, L500.2500 ####[facility] [address] [place], [address] Carbon dioxide, total [Moles /volume] in Central venous bloodOrdered By: Al Ramirez on 11-17-2024 CO2 [Moles/Vol] 20.0 mmol/L Low 21.0-32.[address] [facility] Chloride assayOrdered By: Leon Ramirez on 11-17-2024 Chloride [Moles/Vol] 106 mmol/L 98-108 [facility] Erythrocyte distribution wid th ratioOrdered By: Al Ramirez on 11-17-2024 Erythrocyte distribution width (RBC) [Ratio] 15.5 % High 11.6-14.[address] [facility] Erythrocyte distribution wid th standard deviationOrdered By: Al Ramirez on 11-17-2024 Erythrocyte distribution width (RBC) [Ratio] 57.9 fl High 35.1-43.[address] [facility] Glomerular filtration rate ( GFR) estimation/1.73 sq m using serum, plasma, or whole bOrdered By: Al Ramirez on 11-17-2024 GFR/1.73 sq M.predicted among non-blacks MDRD (S/P/Bld) [Vol rate/Area] 29 mL/min/{1.73_m2} Low >[address] [facility] Comment on above: mL/min/1.73m2 CKD-EP I Creatinine Equation (2020) Hematocrit Auto (Bld) [Volum e fraction]Ordered By: Al Ramirez on 11-17-2024 Hematocrit (Bld) [Volume fraction] 31.7 % Low 40-[address] [facility] Hemoglobin measurementOrdere d By: Al Ramirez on 11-17-2024 Hemoglobin (Bld) [Mass/Vol] 9.1 g/dL Low 13.0-16.[address] [facility] MCV (mean corpuscular volume ) determinationOrdered By: Al Ramirez on 11-17-2024 MCV (RBC) [Entitic vol] 102.6 fL High 80-[address] [facility] Mean corpuscular hemoglobin (MCH) determinationOrdered By: Al Ramirez on 11-17-2024 MCH (RBC) [Entitic mass] 29.4 pg 27.0-32.[address] [facility] Mean corpuscular hemoglobin concentration (MCHC) determinationOrdered By: Al Ramirez on 11-17-2024 MCHC (RBC) [Mass/Vol] 28.7 g/dL Low 32-36 [facility] Mean platelet volume determi nationOrdered By: Al Ramirez on 11-17-2024 Platelet mean volume (Bld) [Entitic vol] 10.0 fL 6.2-12.[address] [facility] Platelet countOrdered By: Leon Ramirez on 11-17-2024 Platelets (Bld) [#/Vol] 129 10*3/uL Low 150-[address] [facility] Potassium measurement (mass/ volume)Ordered By: Al Ramirez on 11-17-2024 Potassium (Unsp spec) [Mass/Vol] 5.9 mmol/L High 3.3-5.[address] [facility] Protein+Creatinine Ratio,Uri neon 11-17-2024 PROT:CRE RATIO 430 mg/g CRE High 0-[address] [facility] Comment on above: Performed By: #### L 100.0500, L501.0900, L500.2500 ####[facility] [address] [place], [place], [address] Protein (U) [Mass/Vol] 26.0 mg/dL High 0.0-12.0 [facility] Comment on above: Performed By: #### L 100.0500, L501.0900, L500.2500 ####[facility] [address] [place], [address] RBC Auto (Bld) [#/Vol]Ordere d By: Al Ramirez on 11-17-2024 RBC (Bld) [#/Vol] 3.09 10*6/uL Low 4.6-6.2 [facility] Random urine creatinine lorena urement (mass/volume)Ordered By: Al Ramirez on 11-17-2024 Creatinine Unsp time (U) [Mass/Vol] 60.50 mg/dL 39.00-259.[address] [facility] Serum creatinine measurement (mass/volume)Ordered By: Al Ramirez on 11-17-2024 Creatinine [Mass/Vol] 2.37 mg/dL High 0.70-1.20 [facility] Serum glucose measurement (m ass/volume)Ordered By: Al Ramirez on 11-17-2024 Glucose [Mass/Vol] 221 mg/dL High 70-99 [facility] Serum or plasma calcium lorena urement (mass/volume)Ordered By: Al Ramirez on 11-17-2024 Calcium [Mass/Vol] 9.0 mg/dL 7.6-11.0 [facility] Serum or plasma urea nitroge n measurement (mass/volume)Ordered By: Al Ramirez on 11-17-2024 Urea nitrogen [Mass/Vol] 54 mg/dL High 4-[address] [facility] Sodium levelOrdered By: Mahad Ramirez on 11-17-2024 Sodium [Moles/Vol] 138 mmol/L 133-145 [facility] Urine protein measurement (m ass/volume)Ordered By: Al Ramirez on 11-17-2024 Protein (U) [Mass/Vol] 26.0 mg/dL High 0.0-12.0 [facility] Urine protein/creatinine mas s ratioOrdered By: Al Ramirez on 11-17-2024 Protein/Creatinine (U) [Mass ratio] 430 mg/g CRE High 0-[address] [facility] White blood cell (WBC) count Ordered By: Al Ramirez on 11-17-2024 WBC (Bld) [#/Vol] 4.2 10*3/uL Low 4.4-11.0 [facility] Anion gap in Serum or Plasma Ordered By: Vasyl Aguilar on 11-16-2024 Anion gap [Moles/Vol] 8 mmol/L 5-15 [facility] BUN/creatinine ratioOrdered By: Vasyl Aguilar on 11-16-2024 Urea nitrogen/Creatinine [Mass ratio] 23.8 mg/mg High 10-[address] [facility] Basic Metabolic Profile (BMP )on 11-16-2024 BUN/CRE 23.8 RATIO High 01-[address] [facility] Comment on above: Performed By: #### L 500.2500, L100.0500 ####[facility] [address] [place], [address] Calcium [Mass/Vol] 9.0 mg/dL Normal 7.6-11.0 [facility] Comment on above: Performed By: #### L 500.2500, L100.0500 ####[facility] [address] [place], [address] Chloride [Moles/Vol] 107 mmol/L Normal 98-108 [facility] Comment on above: Performed By: #### L 500.2500, L100.0500 ####[facility] [address] [place], [address] CO2 [Moles/Vol] 24.2 mmol/L Normal 21.0-32.[address] [facility] Comment on above: Performed By: #### L 500.2500, L100.0500 ####[facility] [address] [place], [address] Creatinine [Mass/Vol] 2.29 mg/dL High 0.70-1.20 [facility] Comment on above: Performed By: #### L 500.2500, L100.0500 ####[facility] [address] [place], [address] GAP 8 Normal 5-[address] [facility] Comment on above: Performed By: #### L 500.2500, L100.0500 ####[facility] [address] [place], [address] GFR/1.73 sq M.predicted among non-blacks MDRD (S/P/Bld) [Vol rate/Area] 30 mL/min/{1.73_m2} Low >[address] [facility] Comment on above: Result Comment: mL/m in/1.73m2 CKD-EPI Creatinine Equation (2020) Performed By: #### L 500.2500, L100.0500 ####[facility] [address] [place], [address] Glucose [Mass/Vol] 85 mg/dL Normal 70-99 [facility] Comment on above: Performed By: #### L 500.2500, L100.0500 ####[facility] [address] [place], [address] Potassium [Moles/Vol] 5.9 mmol/L High 3.3-5.1 [facility] Comment on above: Performed By: #### L 500.2500, L100.0500 ####[facility] [address] [place], [address] Sodium [Moles/Vol] 139 mmol/L Normal 133-145 [facility] Comment on above: Performed By: #### L 500.2500, L100.0500 ####[facility] [address] [place], [address] Urea nitrogen [Mass/Vol] 55 mg/dL High 4-[address] [facility] Comment on above: Performed By: #### L 500.2500, L100.0500 ####[facility] [address] [place], [address] CBC-Complete Blood Cnt No Di ffon 11-16-2024 Erythrocyte distribution width (RBC) [Ratio] 15.3 % High 11.6-14.[address] [facility] Comment on above: Performed By: #### L 500.2500, L100.0500 ####[facility] [address] [place], [address] Hematocrit (Bld) [Volume fraction] 32.0 % Low 40-[address] [facility] Comment on above: Performed By: #### L 500.2500, L100.0500 ####[facility] [address] [place], [address] Hemoglobin (Bld) [Mass/Vol] 9.6 g/dL Low 13.0-16.[address] [facility] Comment on above: Performed By: #### L 500.2500, L100.0500 ####[facility] [address] [place], [address] MCH (RBC) [Entitic mass] 29.9 pg Normal 27.0-32.[address] [facility] Comment on above: Performed By: #### L 500.2500, L100.0500 ####[facility] [address] [place], [address] MCHC (RBC) [Mass/Vol] 30.0 g/dL Low 32-36 [facility] Comment on above: Performed By: #### L 500.2500, L100.0500 ####[facility] [address] [place], [address] MCV (RBC) [Entitic vol] 99.7 fL High 80-[address] [facility] Comment on above: Performed By: #### L 500.2500, L100.0500 ####[facility] [address] [place], [address] Platelet mean volume (Bld) [Entitic vol] 10.0 fL Normal 6.2-12.[address] [facility] Comment on above: Performed By: #### L 500.2500, L100.0500 ####[facility] [address] [place], [address] Platelets (Bld) [#/Vol] 134 10*3/uL Low 150-[address] [facility] Comment on above: Performed By: #### L 500.2500, L100.0500 ####[facility] [address] [place], [address] RBC (Bld) [#/Vol] 3.21 10*6/uL Low 4.6-6.2 [facility] Comment on above: Performed By: #### L 500.2500, L100.0500 ####[facility] [address] [place], [address] RDW SD 56.2 fl High 35.1-43.[address] [facility] Comment on above: Performed By: #### L 500.2500, L100.0500 ####[facility] [address] [place], [address] WBC (Bld) [#/Vol] 5.0 10*3/uL Normal 4.4-11.0 [facility] Comment on above: Performed By: #### L 500.2500, L100.0500 ####[facility] [address] [place], [address] Carbon dioxide, total [Moles /volume] in Central venous bloodOrdered By: Vasyl Aguilar on 11-16-2024 CO2 [Moles/Vol] 24.2 mmol/L 21.0-32.[address] [facility] Chloride assayOrdered By: Yin Aguilar on 11-16-2024 Chloride [Moles/Vol] 107 mmol/L 98-108 [facility] Erythrocyte distribution wid th ratioOrdered By: Vasyl Aguilar on 11-16-2024 Erythrocyte distribution width (RBC) [Ratio] 15.3 % High 11.6-14.[address] [facility] Erythrocyte distribution wid th standard deviationOrdered By: Vasyl Aguilar on 11-16-2024 Erythrocyte distribution width (RBC) [Ratio] 56.2 fl High 35.1-43.[address] [facility] Glomerular filtration rate ( GFR) estimation/1.73 sq m using serum, plasma, or whole bOrdered By: Vasyl Aguilar on 11-16-2024 GFR/1.73 sq M.predicted among non-blacks MDRD (S/P/Bld) [Vol rate/Area] 30 mL/min/{1.73_m2} Low >[address] [facility] Comment on above: mL/min/1.73m2 CKD-EP I Creatinine Equation (2020) Hematocrit Auto (Bld) [Volum e fraction]Ordered By: Vasyl Aguilar on 11-16-2024 Hematocrit (Bld) [Volume fraction] 32.0 % Low 40-[address] [facility] Hemoglobin measurementOrdere d By: Vasyl Aguilar on 11-16-2024 Hemoglobin (Bld) [Mass/Vol] 9.6 g/dL Low 13.0-16.[address] [facility] MCV (mean corpuscular volume ) determinationOrdered By: Vasyl Aguilar on 11-16-2024 MCV (RBC) [Entitic vol] 99.7 fL High 80-[address] [facility] Mean corpuscular hemoglobin (MCH) determinationOrdered By: Vasyl Aguilar on 11-16-2024 MCH (RBC) [Entitic mass] 29.9 pg 27.0-32.[address] [facility] Mean corpuscular hemoglobin concentration (MCHC) determinationOrdered By: Vasyl Aguilar on 11-16-2024 MCHC (RBC) [Mass/Vol] 30.0 g/dL Low 32-36 [facility] Mean platelet volume determi nationOrdered By: Vasyl Aguilar on 11-16-2024 Platelet mean volume (Bld) [Entitic vol] 10.0 fL 6.2-12.[address] [facility] Platelet countOrdered By: Yin Aguilar on 11-16-2024 Platelets (Bld) [#/Vol] 134 10*3/uL Low 150-[address] [facility] Potassium measurement (mass/ volume)Ordered By: Vasyl Aguilar on 11-16-2024 Potassium (Unsp spec) [Mass/Vol] 5.9 mmol/L High 3.3-5.[address] [facility] RBC Auto (Bld) [#/Vol]Ordere d By: Vasyl Aguilar on 11-16-2024 RBC (Bld) [#/Vol] 3.21 10*6/uL Low 4.6-6.2 [facility] Serum creatinine measurement (mass/volume)Ordered By: Vasyl Aguilar on 11-16-2024 Creatinine [Mass/Vol] 2.29 mg/dL High 0.70-1.20 [facility] Serum glucose measurement (m ass/volume)Ordered By: Vasyl Aguilar on 11-16-2024 Glucose [Mass/Vol] 85 mg/dL 70-99 [facility] Serum or plasma calcium lorena urement (mass/volume)Ordered By: Vasyl Aguilar on 11-16-2024 Calcium [Mass/Vol] 9.0 mg/dL 7.6-11.0 [facility] Serum or plasma urea nitroge n measurement (mass/volume)Ordered By: Vasyl Aguilar on 11-16-2024 Urea nitrogen [Mass/Vol] 55 mg/dL High 4-[address] [facility] Sodium levelOrdered By: Jaime Aguilar on 11-16-2024 Sodium [Moles/Vol] 139 mmol/L 133-145 [facility] White blood cell (WBC) count Ordered By: Vasyl Aguilar on 11-16-2024 WBC (Bld) [#/Vol] 5.0 10*3/uL 4.4-11.0 [facility] Echo Completeon 11-07-[address] [facility] Echocardiogram study reportO rdered By: Carlin Wilde on 11-07-[address] [facility] [address] [address] Echo Complete 11/07/24 1303 MR#: [id number] Acct: [id number] Name: FRANK WHITE Rep #[id number] : [id number] From: Carlin Rocha Attending Dr: Nguyen Montemayor, ORE FEEDER-C Ruben tatus: REG CLI Ordering Dr: Nguyen Montemayor NP [employer]RE [employer]ER-C Basilio e: 11/07/24 Location: [facility] Sex: M C Admitted: Reason For Study Reason For Study: VALVE REPLACMENT Procedure This was a 2D Doppler, Color Flow transthoracic echocardiogram. Exam performed in department. Left Ventricle Normal LV size. The estimated ejection fraction is 50 %. [place] : Hypokinetic. Right Ventricle Normal RV size. Normal systolic function. Atria The left atrium is severely enlarged. The right atrium is moderately enlarged. Mitral Valve Bileaflet diffuse mitral valve thickening. Mild-Moderate (1-2+) eccentric mitralvalve insufficiency. Tricuspid Valve Normal tricuspid valve. Mild to moderate (1-2+) tricuspid valve insufficiency. Pulmonary artery systolic pressure is 38 mmHg. Aortic Valve Peak aortic valve gradient 20 mmHg. Mean aortic valve gradient 11 mmHg. Mild (1+) eccentric aortic valve insufficiency. Bioprosthetic aortic valve. Pulmonic Valve Normal pulmonic valve. Great Vessels Normal aortic root. The pulmonary artery is normal size. Inferior vena cava collapse with respiration. Pericardium/Pleural No pericardial effusion. Medication 22 gauge I.V. with prn adaptor inserted into right arm. Performed a rapid injection of agitated mix of 9 cc saline and 1cc air to assess for atrial septal defect. MMode/2D Measurements & Calculations LVIDd: 5.9 cm IVSd: 1.3 cm LVOT diam: 2.0 cm LVIDs: 3.1 cm LVPWd: 1.2 cm RVDd: 4.9 cm FS: 46.9 % LVOT area: 3.0 cm2 Ao root diam: 3.8 cm LAV(MOD-bp): 116.0 ml LVAd ap4: 36.2 cm2 LAV(MOD-bp) Indexed: 50.8 ml/m2 LVLd ap4: 8.5 cm LAV(MOD-sp2): 108.9 ml EDV(MOD-sp4): 127.7 ml LAV(MOD-sp4): 113.6 ml EDV(sp4-el): 130.4 ml LVAs ap4: 24.0 cm2 LVLs ap4: 7.9 cm ESV(MOD-sp4): 61.0 ml ESV(sp4-el): 61.8 ml EF(MOD-sp4): 52.2 % EF(sp4-el): 52.6 % SV(MOD-sp4): 66.7 ml SV(sp4-el): 68.6 ml LA A4 area: 33.9 cm2 SI(MOD-sp4): 29.2 ml/m2 LA dimension(2D): 5.6 cm RA A4 area: 25.2 cm2 Time Measurements MV dec time: 0.22 sec Doppler Measurements & Calculations MV E max duran: 154.7 cm/sec Lat Peak E' Duran: 10.4 cm/sec Med Peak E' Duran: 6.7 cm/sec MV A max duran: 51.8 cm/sec E/E' lat: 14.8 E/E' med: 23.2 MV E/A: 3.0 MV V2 max: 197.3 cm/sec MV dec slope: 708.3 cm/sec2 Ao V2 max: 222.5 cm/sec MV max P.6 mmHg Ao max P.8 mmHg MV V2 mean: 92.5 cm/sec Ao V2 mean: 152.4 cm/sec MV mean P.4 mmHg Ao mean P.6 mmHg MV V2 VTI: 49.4 cm Ao V2 VTI: 47.0 cm MVA(VTI): 1.8 cm2 AV (velocity ratio): 0.64 JANEL(I,D): 1.9 cm2 JANEL(V,D): 2.1 cm2 AI max duran: 496.0 cm/sec LV V1 max: 152.2 cm/sec SV(LVOT): 90.0 ml AI max P.5 mmHg LV V1 max P.3 mmHg LV V1 mean P.3 mmHg AI dec slope: 201.1 cm/sec2 LV V1 mean: 107.8 cm/sec AI P1/2t: 722.3 msec LV V1 VTI: 29.9 cm PA V2 max: 93.4 cm/sec TR max duran: 292.6 cm/sec PA V2 mean: 63.8 cm/sec TR max P.3 mmHg ECHO/Echo Complete Interpretation Summary Normal LV size. The estimated ejection fraction is 50 %. [place] : Hypokinetic. Mild-Moderate (1-2+) eccentric mitral valve insufficiency. Bioprosthetic aortic valve. Mean aortic valve gradient 11 mmHg. Ordering Physician: Nguyen Montmeayor Referring Physician: Nguyen Montemayor Performed By: Ilana Rehman RCS 11/07/24 1637 Date _ Carlin Wilde MD CC: ORE FEEDER-C Nguyen Montemayor; Dr. Gracy Shin DO ~ Date Dictated: 11/07/24 1303 Date Transcribed: 11/07/24 163 Client Experience Specialist: Signed [facility] Work Phone: Pacemaker Checkon 10-18-[address] [facility] CVS/PACEMAKERon 10-11-2024 CVS/PACEMAKER Normal [facility] Anion gap in Serum or Plasma Ordered By: Nguyen Montemayor on 09-26-2024 Anion gap [Moles/Vol] 16 mmol/L High 08-04 [facility] BUN/creatinine ratioOrdered By: Nguyen Montemayor on 09-26-2024 Urea nitrogen/Creatinine [Mass ratio] 24.4 mg/mg High 01-[address] [facility] Basic Metabolic Profile (BMP )on 09-26-2024 BUN/CRE 24.4 RATIO High 01-[address] [facility] Comment on above: Performed By: #### L 500.4100, L500.3400, L500.2500 ####[facility] [address] [place], [address] Calcium [Mass/Vol] 7.9 mg/dL Normal 7.6-11.0 [facility] Comment on above: Performed By: #### L 500.4100, L500.3400, L500.2500 ####[facility] [address] [place], [address] Chloride [Moles/Vol] 105 mmol/L Normal 98-108 [facility] Comment on above: Performed By: #### L 500.4100, L500.3400, L500.2500 ####[facility] [address] [place], [address] CO2 [Moles/Vol] 21.8 mmol/L Normal 21.0-32.[address] [facility] Comment on above: Performed By: #### L 500.4100, L500.3400, L500.2500 ####[facility] [address] [place], [address] Creatinine [Mass/Vol] 2.61 mg/dL High 0.70-1.20 [facility] Comment on above: Performed By: #### L 500.4100, L500.3400, L500.2500 ####[facility] [address] [place], [address] GAP 16 High 5-[address] [facility] Comment on above: Performed By: #### L 500.4100, L500.3400, L500.2500 ####[facility] [address] [place], [address] GFR/1.73 sq M.predicted among non-blacks MDRD (S/P/Bld) [Vol rate/Area] 26 mL/min/{1.73_m2} Low >[address] [facility] Comment on above: Result Comment: mL/m in/1.73m2 CKD-EPI Creatinine Equation (2020) Performed By: #### L 500.4100, L500.3400, L500.2500 ####[facility] [address] [place], [address] Glucose [Mass/Vol] 150 mg/dL High 70-99 [facility] Comment on above: Performed By: #### L 500.4100, L500.3400, L500.2500 ####[facility] [address] [place], [address] Potassium [Moles/Vol] 3.8 mmol/L Normal 3.3-5.1 [facility] Comment on above: Result Comment: Hemo lysis present, Results??could be affected.?? Performed By: #### L 500.4100, L500.3400, L500.2500 ####[facility] [address] [place], [address] Sodium [Moles/Vol] 142 mmol/L Normal 133-145 [facility] Comment on above: Performed By: #### L 500.4100, L500.3400, L500.2500 ####[facility] [address] [place], [address] Urea nitrogen [Mass/Vol] 64 mg/dL High 4-[address] [facility] Comment on above: Performed By: #### L 500.4100, L500.3400, L500.2500 ####[facility] [address] [place], [address] Bilirubin directOrdered By: Nguyen Montemayor on 09-26-2024 Bilirubin.direct [Mass/Vol] 0.19 mg/dL 0.00-0.[address] [facility] Comment on above: Hemolysis present, R esults could be affected. Bilirubin, totalOrdered By: Nguyen Montemayor on 09-26-2024 Bilirubin [Mass/Vol] 0.50 mg/dL 0.00-1.30 [facility] Calculated very low density lipoprotein (VLDL) cholesterol measurementOrdered By: Nguyen Montemayor on 09-26-2024 Calculated very low density lipoprotein (VLDL) cholesterol measurement 13 mg/dL 5-[address] [facility] Carbon dioxide, total [Moles /volume] in Central venous bloodOrdered By: Nguyen Montemayor on 09-26-2024 CO2 [Moles/Vol] 21.8 mmol/L 21.0-32.[address] [facility] Chloride assayOrdered By: Juarez Montemayor on 09-26-2024 Chloride [Moles/Vol] 105 mmol/L 98-108 [facility] Glomerular filtration rate ( GFR) estimation/1.73 sq m using serum, plasma, or whole bOrdered By: Nguyen Montemayor on 09-26-2024 GFR/1.73 sq M.predicted among non-blacks MDRD (S/P/Bld) [Vol rate/Area] 26 mL/min/{1.73_m2} Low >[address] [facility] Comment on above: mL/min/1.73m2 CKD-EP I Creatinine Equation (2020) LDL calc ser/plasOrdered By: Nguyen Montemayor on 09-26-2024 Cholesterol in LDL [Mass/Vol] 44 mg/dL [facility] Comment on above: Vnlveajcus=302-145 m g/dL & Higher Jsir=607 mg/dL or greater Laboratory - Chemistry and C hemistry - challengeOrdered By: Nguyen Montemayor on 09-26-2024 AST [Catalytic activity/Vol] 22 U/L <[address] [facility] Comment on above: Hemolysis present, R esults could be affected. Lipid Profileon 09-26-2024 CHOL:HDL 2.[address] [facility] Comment on above: Performed By: #### L 500.4100, L500.3400, L500.2500 ####[facility] [address] [place], [place], [id number] Cholesterol [Mass/Vol] 112 mg/dL Normal <=200 [facility] Comment on above: Result Comment: Chol esterol level, Desirable <200 mg/dLBorderline high cholesterol 200-239 mg/dLHigh cholesterol >=240 mg/dLRecommendations of the NCEP Adult Treatment Panel for thefollowing risk-cutoff thresholds for the [place] Americanpulation. Performed By: #### L 500.4100, L500.3400, L500.2500 ####[facility] [address] [place], [address] Cholesterol in HDL [Mass/Vol] 55 mg/dL Normal [facility] Comment on above: Result Comment: Kimberly onal Cholesterol Education Program (NCEP) guidelines:<40 mg/dL: Low HDL-cholesterol (major risk factor for CHD)>= 60 mg/dL: High HDL-cholesterol (negative risk factor forCHD)HDL-cholesterol is affected by a number of factors, e.g.smoking, exercise, hormones, sex and age. Performed By: #### L 500.4100, L500.3400, L500.2500 ####[facility] [address] [place], [address] Cholesterol in LDL [Mass/Vol] 44 mg/dL Normal [facility] Comment on above: Result Comment: Bord wvvzaw=912-469 mg/dL Higher Behf=375 mg/dL or greater Performed By: #### L 500.4100, L500.3400, L500.2500 ####[facility] [address] [place], [address] Cholesterol in VLDL [Mass/Vol] 13 mg/dL Normal 5-[address] [facility] Comment on above: Performed By: #### L 500.4100, L500.3400, L500.2500 ####[facility] [address] [place], [address] Triglyceride [Mass/Vol] 66 mg/dL Normal [facility] Comment on above: Result Comment: The drugs N-Acetylcysteine and Metamizole may falselydepress this assay.Normal range: <150 mg/dLBorderline High: 150-199 mg/dLHigh: 200-499 mg/dLVery High: >500 mg/dL Performed By: #### L 500.4100, L500.3400, L500.2500 ####[facility] [address] [place], [address] Liver Profileon 09-26-2024 Albumin [Mass/Vol] 3.8 g/dL Normal 3.4-4.8 [facility] Comment on above: Performed By: #### L 500.4100, L500.3400, L500.2500 ####[facility] [address] [place], [address] ALK PHOS 158 U/L High 40-[address] [facility] Comment on above: Performed By: #### L 500.4100, L500.3400, L500.2500 ####[facility] [address] [place], [address] ALT [Catalytic activity/Vol] 13 U/L Normal <=[address] [facility] Comment on above: Performed By: #### L 500.4100, L500.3400, L500.2500 ####[facility] [address] [place], [address] AST [Catalytic activity/Vol] 22 U/L Normal <=[address] [facility] Comment on above: Result Comment: Hemo lysis present, Results??could be affected.?? Performed By: #### L 500.4100, L500.3400, L500.2500 ####[facility] [address] [place], [address] Bilirubin [Mass/Vol] 0.50 mg/dL Normal 0.00-1.30 [facility] Comment on above: Performed By: #### L 500.4100, L500.3400, L500.2500 ####[facility] [address] [place], [address] Bilirubin.direct [Mass/Vol] 0.19 mg/dL Normal 0.00-0.[address] [facility] Comment on above: Result Comment: Hemo lysis present, Results??could be affected.?? Performed By: #### L 500.4100, L500.3400, L500.2500 ####[facility] [address] [place], [address] Globulin (S) [Mass/Vol] 3.7 g/dL Normal 2.2-4.[address] [facility] Comment on above: Performed By: #### L 500.4100, L500.3400, L500.2500 ####[facility] [address] [place], [address] T PROT 7.4 g/dL Normal 5.9-8.[address] [facility] Comment on above: Performed By: #### L 500.4100, L500.3400, L500.2500 ####[facility] [address] [place], [address] Potassium measurement (mass/ volume)Ordered By: Nguyen Montemayor on 09-26-2024 Potassium (Unsp spec) [Mass/Vol] 3.8 mmol/L 3.3-5.[address] [facility] Comment on above: Hemolysis present, R esults could be affected. Screening total cholesterol/ high density lipoprotein (HDL) cholesterol ratioOrdered By: Nguyen Montemayor on 09-26-2024 Cholesterol.total/Steph sterol in HDL [Mass ratio] 2.03 {ratio} [facility] Serum creatinine measurement (mass/volume)Ordered By: Nguyen Montemayor on 09-26-2024 Creatinine [Mass/Vol] 2.61 mg/dL High 0.70-1.20 [facility] Serum globulin measurementOr dered By: Nguyen Montemayor on 09-26-2024 Globulin (S) [Mass/Vol] 3.7 g/dL 2.2-4.[address] [facility] Serum glucose measurement (m ass/volume)Ordered By: Nguyen Montemayor on 09-26-2024 Glucose [Mass/Vol] 150 mg/dL High 70-99 [facility] Serum or plasma alanine mitchell otransferase (ALT) measurementOrdered By: Nguyen Montemayor on 09-26-2024 ALT [Catalytic activity/Vol] 13 U/L <[address] [facility] Serum or plasma albumin lorena urement (mass/volume)Ordered By: Nguyen Montemayor on 09-26-2024 Albumin [Mass/Vol] 3.8 g/dL 3.4-4.8 [facility] Serum or plasma alkaline karsten sphatase measurementOrdered By: Nguyen Montemayor on 09-26-2024 ALP [Catalytic activity/Vol] 158 U/L High 40-[address] [facility] Serum or plasma calcium lorena urement (mass/volume)Ordered By: Nguyen Montemayor on 09-26-2024 Calcium [Mass/Vol] 7.9 mg/dL 7.6-11.0 [facility] Serum or plasma cholesterol in HDL measurement (mass/volume)Ordered By: Nguyen Montemayor on 09-26-2024 Cholesterol in HDL [Mass/Vol] 55 mg/dL >[address] [facility] Comment on above: National Cholesterol Education Program (NCEP) guidelines:<40 mg/dL: Low HDL-cholesterol (major risk factor for CHD)>= 60 mg/dL: High HDL-cholesterol (negative risk factor for CHD)HDL-cholesterol is affected by a number of factors, e.g. smoking, exercise, hormones, sex and age. Serum or plasma cholesterol measurement (mass/volume)Ordered By: Nguyen Montemayor on 09-26-2024 Cholesterol [Mass/Vol] 112 mg/dL <201 [facility] Comment on above: Cholesterol level, D esirable <200 mg/dLBorderline high cholesterol 200-239 mg/dLHigh cholesterol >=240 mg/dLRecommendations of the NCEP Adult Treatment Panel for the following risk-cutoff thresholds for the [place] population. Serum or plasma urea nitroge n measurement (mass/volume)Ordered By: Nguyen Montemayor on 09-26-2024 Urea nitrogen [Mass/Vol] 64 mg/dL High 4-[address] [facility] Sodium levelOrdered By: Pamella Montemayor on 09-26-2024 Sodium [Moles/Vol] 142 mmol/L 133-145 [facility] Total proteinOrdered By: Maynor Montemayor on 09-26-2024 Protein [Mass/Vol] 7.4 g/dL 5.9-8.4 [facility] Triglycerides measurementOrd ered By: Nguyen Montemayor on 09-26-2024 Triglyceride [Mass/Vol] 66 mg/dL <[address] [facility] Comment on above: The drugs N-Acetylcy steine and Metamizole may falsely depress this assay. Normal range: <150 mg/dLBorderline High: 150-199 mg/dLHigh: 200-499 mg/dLVery High: >500 mg/dL Anion gap in Serum or Plasma Ordered By: Nguyen Montemayor on 09-19-2024 Anion gap [Moles/Vol] 13 mmol/L 5-15 [facility] BUN/creatinine ratioOrdered By: Nguyen Montemayor on 09-19-2024 Urea nitrogen/Creatinine [Mass ratio] 29.4 mg/mg High 10-[address] [facility] Basic Metabolic Profile (BMP )on 09-19-2024 BUN/CRE 29.4 RATIO High - [facility] Comment on above: Order Comment: For C RT-P generator change Performed By: #### L 100.0500, L300.3900, L400.0001, L500.2500 ####[facility] [address] [place], [address] Calcium [Mass/Vol] 8.5 mg/dL Normal 7.6-11.0 [facility] Comment on above: Order Comment: For C RT-P generator change Performed By: #### L 100.0500, L300.3900, L400.0001, L500.2500 ####[facility] [address] [place], [address] Chloride [Moles/Vol] 107 mmol/L Normal 98-108 [facility] Comment on above: Order Comment: For C RT-P generator change Performed By: #### L 100.0500, L300.3900, L400.0001, L500.2500 ####[facility] [address] [place], [address] CO2 [Moles/Vol] 21.6 mmol/L Normal 21.0-32.[address] [facility] Comment on above: Order Comment: For C RT-P generator change Performed By: #### L 100.0500, L300.3900, L400.0001, L500.2500 ####[facility] [address] [place], [address] Creatinine [Mass/Vol] 2.57 mg/dL High 0.70-1.20 [facility] Comment on above: Order Comment: For C RT-P generator change Performed By: #### L 100.0500, L300.3900, L400.0001, L500.2500 ####[facility] [address] [place], [address] GAP 13 Normal 5-[address] [facility] Comment on above: Order Comment: For C RT-P generator change Performed By: #### L 100.0500, L300.3900, L400.0001, L500.2500 ####[facility] [address] [place], [address] GFR/1.73 sq M.predicted among non-blacks MDRD (S/P/Bld) [Vol rate/Area] 26 mL/min/{1.73_m2} Low >[address] [facility] Comment on above: Order Comment: For C RT-P generator change Result Comment: mL/m in/1.73m2 CKD-EPI Creatinine Equation (2020) Performed By: #### L 100.0500, L300.3900, L400.0001, L500.2500 ####[facility] [address] [place], [address] Glucose [Mass/Vol] 97 mg/dL Normal 70-99 [facility] Comment on above: Order Comment: For C RT-P generator change Performed By: #### L 100.0500, L300.3900, L400.0001, L500.2500 ####[facility] [address] [place], [address] Potassium [Moles/Vol] 5.5 mmol/L High 3.3-5.1 [facility] Comment on above: Order Comment: For C RT-P generator change Performed By: #### L 100.0500, L300.3900, L400.0001, L500.2500 ####[facility] [address] [place], [address] Sodium [Moles/Vol] 141 mmol/L Normal 133-145 [facility] Comment on above: Order Comment: For C RT-P generator change Performed By: #### L 100.0500, L300.3900, L400.0001, L500.2500 ####[facility] [address] [place], [address] Urea nitrogen [Mass/Vol] 76 mg/dL High 4-[address] [facility] Comment on above: Order Comment: For C RT-P generator change Performed By: #### L 100.0500, L300.3900, L400.0001, L500.2500 ####[facility] [address] [place], [address] Bilirubin Test strip Ql (U)O rdered By: Nguyen Montemayor on 09-19-2024 Bilirubin Ql (U) Negative Negative [facility] CBC-Complete Blood Cnt No Di ffon 09-19-2024 Erythrocyte distribution width (RBC) [Ratio] 15.9 % High 11.6-14.[address] [facility] Comment on above: Order Comment: Comme nts: For TRAINMAN-P generator change Performed By: #### L 100.0500, L300.3900, L400.0001, L500.2500 ####[facility] [address] [place], [address] Hematocrit (Bld) [Volume fraction] 32.7 % Low 40-[address] [facility] Comment on above: Order Comment: Comme nts: For TRAINMAN-P generator change Performed By: #### L 100.0500, L300.3900, L400.0001, L500.2500 ####[facility] [address] [place], [address] Hemoglobin (Bld) [Mass/Vol] 9.7 g/dL Low 13.0-16.[address] [facility] Comment on above: Order Comment: Comme nts: For TRAINMAN-P generator change Performed By: #### L 100.0500, L300.3900, L400.0001, L500.2500 ####[facility] [address] [place], [address] MCH (RBC) [Entitic mass] 30.1 pg Normal 27.0-32.[address] [facility] Comment on above: Order Comment: Comme nts: For TRAINMAN-P generator change Performed By: #### L 100.0500, L300.3900, L400.0001, L500.2500 ####[facility] [address] [place], [address] MCHC (RBC) [Mass/Vol] 29.7 g/dL Low 32-36 [facility] Comment on above: Order Comment: Comme nts: For TRAINMAN-P generator change Performed By: #### L 100.0500, L300.3900, L400.0001, L500.2500 ####[facility] [address] [place], [address] MCV (RBC) [Entitic vol] 101.6 fL High 80-[address] [facility] Comment on above: Order Comment: Comme nts: For TRAINMAN-P generator change Performed By: #### L 100.0500, L300.3900, L400.0001, L500.2500 ####[facility] [address] [place], [address] Platelet mean volume (Bld) [Entitic vol] 10.0 fL Normal 6.2-12.[address] [facility] Comment on above: Order Comment: Comme nts: For TRAINMAN-P generator change Performed By: #### L 100.0500, L300.3900, L400.0001, L500.2500 ####[facility] [address] [place], [address] Platelets (Bld) [#/Vol] 115 10*3/uL Low 150-[address] [facility] Comment on above: Order Comment: Comme nts: For TRAINMAN-P generator change Performed By: #### L 100.0500, L300.3900, L400.0001, L500.2500 ####[facility] [address] [place], [address] RBC (Bld) [#/Vol] 3.22 10*6/uL Low 4.6-6.2 [facility] Comment on above: Order Comment: Comme nts: For TRAINMAN-P generator change Performed By: #### L 100.0500, L300.3900, L400.0001, L500.2500 ####[facility] [address] [place], [address] RDW SD 59.7 fl High 35.1-43.[address] [facility] Comment on above: Order Comment: Comme nts: For TRAINMAN-P generator change Performed By: #### L 100.0500, L300.3900, L400.0001, L500.2500 ####[facility] [address] [place], [address] WBC (Bld) [#/Vol] 4.9 10*3/uL Normal 4.4-11.0 [facility] Comment on above: Order Comment: Comme nts: For TRAINMAN-P generator change Performed By: #### L 100.0500, L300.3900, L400.0001, L500.2500 ####[facility] [address] [place], [address] Carbon dioxide, total [Moles /volume] in Central venous bloodOrdered By: Nguyen Montemayor on 09-19-2024 CO2 [Moles/Vol] 21.6 mmol/L 21.0-32.[address] [facility] Cardiology Visit Reporton Cardiology Visit Report Normal [facility] Chloride assayOrdered By: Juarez Montemayor on 09-19-2024 Chloride [Moles/Vol] 107 mmol/L 98-108 [facility] Erythrocyte distribution wid th ratioOrdered By: Nguyen Montemayor on 09-19-2024 Erythrocyte distribution width (RBC) [Ratio] 15.9 % High 11.6-14.[address] [facility] Erythrocyte distribution wid th standard deviationOrdered By: Nguyen Montemayor on 09-19-2024 Erythrocyte distribution width (RBC) [Ratio] 59.7 fl High 35.1-43.[address] [facility] Glomerular filtration rate ( GFR) estimation/1.73 sq m using serum, plasma, or whole bOrdered By: Nguyen Montemayor on 09-19-2024 GFR/1.73 sq M.predicted among non-blacks MDRD (S/P/Bld) [Vol rate/Area] 26 mL/min/{1.73_m2} Low >[address] [facility] Comment on above: mL/min/1.73m2 CKD-EP I Creatinine Equation (2020) Hematocrit Auto (Bld) [Volum e fraction]Ordered By: Nguyen Montemayor on 09-19-2024 Hematocrit (Bld) [Volume fraction] 32.7 % Low 40-[address] [facility] Hemoglobin measurementOrdere d By: Nguyen Montemayor on 09-19-2024 Hemoglobin (Bld) [Mass/Vol] 9.7 g/dL Low 13.0-16.[address] [facility] International normalized rat io (INR) calculationOrdered By: Nguyen Montemayor on 09-19-2024 INR Coag (Bld) [Relative time] 1.5 {INR} [facility] Ketones Test strip Ql (U)Ord ered By: Nguyen Montemayor on 09-19-2024 Ketones Ql (U) Negative Negative [facility] MCV (mean corpuscular volume ) determinationOrdered By: Nguyen Montemayor on 09-19-2024 MCV (RBC) [Entitic vol] 101.6 fL High 80-[address] [facility] Mean corpuscular hemoglobin (MCH) determinationOrdered By: Nguyen Montemayor on 09-19-2024 MCH (RBC) [Entitic mass] 30.1 pg 27.0-32.[address] [facility] Mean corpuscular hemoglobin concentration (MCHC) determinationOrdered By: Nguyen Montemayor on 09-19-2024 MCHC (RBC) [Mass/Vol] 29.7 g/dL Low 32-36 [facility] Mean platelet volume determi nationOrdered By: Nguyen Montemayor on 09-19-2024 Platelet mean volume (Bld) [Entitic vol] 10.0 fL 6.2-12.[address] [facility] Microscopic analysis of urin e for red blood cells (RBC)Ordered By: Nguyen Montemayor on 09-19-2024 Microscopic analysis of urine for red blood cells (RBC) 0 SEEN /hpf 0-[address] [facility] Mucus LM Ql (Urine sed)Order ed By: Nguyen Montemayor on 09-19-2024 Mucus Ql (Urine sed) 0 SEEN /hpf [facility] Nitrite Test strip Ql (U)Ord ered By: Nguyen Montemayor on 09-19-2024 Nitrite Ql (U) Negative Negative [facility] Pacemaker Checkon 09-19-2024 Pacemaker Check Normal [facility] Platelet countOrdered By: Juarez Montemayor on 09-19-2024 Platelets (Bld) [#/Vol] 115 10*3/uL Low 150-[address] [facility] Potassium measurement (mass/ volume)Ordered By: Nguyen Montemayor on 09-19-2024 Potassium (Unsp spec) [Mass/Vol] 5.5 mmol/L High 3.3-5.[address] [facility] Protein Test strip Ql (U)Ord ered By: Nguyen Montemayor on 09-19-2024 Protein Ql (U) 30 mg/dl High Negative [facility] Prothrombin Time w/INRon INR Coag (PPP) [Relative time] 1.5 {INR} Normal [facility] Comment on above: Order Comment: Comme nts: For TRAINMAN-P generator change Performed By: #### L 100.0500, L300.3900, L400.0001, L500.2500 ####[facility] [address] [place], [address] PT Coag (PPP) [Time] 18.2 s High 11.7-14.9 [facility] Comment on above: Order Comment: Comme nts: For TRAINMAN-P generator change Performed By: #### L 100.0500, L300.3900, L400.0001, L500.2500 ####[facility] [address] [place], [address] Prothrombin timeOrdered By: Nguyen Montemayor on 09-19-2024 PT Coag (PPP) [Time] 18.2 s High 11.7-14.9 [facility] RBC Auto (Bld) [#/Vol]Ordere d By: Nguyen Montemayor on 09-19-2024 RBC (Bld) [#/Vol] 3.22 10*6/uL Low 4.6-6.2 [facility] Serum creatinine measurement (mass/volume)Ordered By: Nguyen Montemayor on 09-19-2024 Creatinine [Mass/Vol] 2.57 mg/dL High 0.70-1.20 [facility] Serum glucose measurement (m ass/volume)Ordered By: Nguyen Montemayor on 09-19-2024 Glucose [Mass/Vol] 97 mg/dL 70-99 [facility] Serum or plasma calcium lorena urement (mass/volume)Ordered By: Nguyen Montemayor on 09-19-2024 Calcium [Mass/Vol] 8.5 mg/dL 7.6-11.0 [facility] Serum or plasma urea nitroge n measurement (mass/volume)Ordered By: Nguyen Montemayor on 09-19-2024 Urea nitrogen [Mass/Vol] 76 mg/dL High 4-[address] [facility] Sodium levelOrdered By: Pamella Montemayor on 09-19-2024 Sodium [Moles/Vol] 141 mmol/L 133-145 [facility] Squamous epithelial cells de tection in urine sediment by light microscopyOrdered By: Nguyen Montemayor on 09-19-2024 Epithelial cells.squamous LM Ql (Urine sed) 0 SEEN /hpf 0-[address] [facility] Urinalysis, Completeon 09-19 BACTERIA 0 SEEN Normal None Seen [facility] Comment on above: Order Comment: For C RT-P generator changeCOLLECTOR TO SPECIFY Performed By: #### L 100.0500, L300.3900, L400.0001, L500.2500 ####[facility] [address] [place], [address] EPI,SQUAMOUS 0 SEEN Normal 0-[address] [facility] Comment on above: Order Comment: For C RT-P generator changeCOLLECTOR TO SPECIFY Performed By: #### L 100.0500, L300.3900, L400.0001, L500.2500 ####[facility] [address] [place], [address] Mucus Ql (Urine sed) 0 SEEN Normal [facility] Comment on above: Order Comment: For C RT-P generator changeCOLLECTOR TO SPECIFY Performed By: #### L 100.0500, L300.3900, L400.0001, L500.2500 ####[facility] [address] [place], [address] RBC 0 SEEN Normal 0-[address] [facility] Comment on above: Order Comment: For C RT-P generator changeCOLLECTOR TO SPECIFY Performed By: #### L 100.0500, L300.3900, L400.0001, L500.2500 ####[facility] [address] [place], [address] WBC 0 SEEN Normal 0-[address] [facility] Comment on above: Order Comment: For C RT-P generator changeCOLLECTOR TO SPECIFY Performed By: #### L 100.0500, L300.3900, L400.0001, L500.2500 ####[facility] [address] [place], [place], [phone] Urine clarityOrdered By: Maynor Montemayor on 09-19-2024 Clarity (U) Clear Clear [facility] Urine color determinationOrd ered By: Nguyen Montemayor on 09-19-2024 Color (U) Yellow Yellow [facility] Urine glucose detectionOrder ed By: Nguyen Montemayor on 09-19-2024 Glucose Ql (U) Normal mg/dl Normal [facility] Urine leukocyte esterase det ection by dipstickOrdered By: Nguyen Montemayor on 09-19-2024 Leukocyte esterase Test strip Ql (U) Negative Negative [facility] Urine pHOrdered By: Nguyen monroy on 09-19-2024 pH (U) 6.5 [pH] 5.0 - 8.[address] [facility] Urine sediment bacteria coun t by microscopy (number/high power field)Ordered By: Nguyen Montemayor on 09-19-2024 Bacteria LM.HPF (Urine sed) [#/Area] 0 /[HPF] None Seen [facility] Urine specific gravity measu rementOrdered By: Nguyen Montemayor on 09-19-2024 Specific gravity (U) [Rel density] 1.010 1.002-1.[address] [facility] Urine urobilinogen measureme ntOrdered By: Nguyen Montemayor on 09-19-2024 Urobilinogen Ql (U) Normal mg/dl Normal [facility] White blood cell (WBC) count Ordered By: Nguyen Montemayor on 09-19-2024 WBC (Bld) [#/Vol] 4.9 10*3/uL 4.4-11.0 [facility] White blood cell countOrdere d By: Nguyen Montemayor on 09-19-2024 White blood cell count 0 SEEN /hpf 0-[address] [facility] Wound Cultureon 09-16-[address] [facility] Comment on above: Performed By: #### M 100.2000, M100.3000 ####[facility] [address] [place], [place], [address] ABD Limited w/ Elastographyo n 09-02-2024 ABD Limited w/ Elastography Normal [facility] Gram Stainon 08-23-2024 GS LEFT BUTTOCK Gram Stain No organisms seen No Epithelial cells Normal [facility] Comment on above: Performed By: #### M 100.2000, M100.3000 ####[facility] [address] [place], [address] Gram stainOrdered By: Pipe Romero on 08-23-2024 Microscopic observation Gram stain Nom (Unsp spec) [facility] Routine wound cultureOrdered By: Pipe Romero on 08-23-2024 Microbial culture, routine Staphylococcus epidermidis Abnormal [facility] Surgery Visit Reporton 08-22 Surgery Visit Report Normal [facility] AFP, Tumor Markeron 08-15-19 25 AFP TUMOR GRACY < 1.8 Normal 0.0-8.[address] [facility] Comment on above: Order Comment: PRASHANTH ORDERED NADR KIP ORDERED MAX, CBCD, LDH, FEN Result Comment: [employer] [employer] Electrochemiluminescence Immunoassay(ECLIA)Values obtained with different assay methods or kits cannotbe used interchangeably. Results cannot be interpreted asabsolute evidence of the presence or absence of malignantdisease.This test is not interpretable in females.Performed at: [address] [id number] Director: Kaiden Warner PhD, Phone: [phone] Performed By: #### L 501.6710, L501.9985, L503.6150, L300.3900, L100.0100, L503.6550, L500.4100, L504.2610, L3300.0700, L500.4050 ####[facility] [address] [place], [place], [address] Absolute lymphocyte countOrd ered By: Tani Alford on 08-12-2024 Lymphocytes Auto (Unsp spec) [#/Vol] 0.96 10*3/uL 0.83-4.[address] [facility] Absolute neutrophil countOrd ered By: Tani Alford on 08-12-2024 Neutrophils (Bld) [#/Vol] 2.7 10*3/uL 2.0-7.[address] [facility] Anion gap in Serum or Plasma Ordered By: Tani Alford on 08-12-2024 Anion gap [Moles/Vol] 11 mmol/L 5-15 [facility] Automated lymphocyte count a s percentage of total leukocytesOrdered By: Tani Alford on 08-12-2024 Lymphocytes/100 WBC Auto (Unsp spec) 22.8 % 19- [facility] BUN/creatinine ratioOrdered By: Tani Alford on 08-12-2024 Urea nitrogen/Creatinine [Mass ratio] 20.8 mg/mg High 10-[address] [facility] Basophil percentageOrdered B y: Tani Alford on 08-12-2024 Basophils/100 WBC (Bld) 1.0 % 0-[address] [facility] Bilirubin, totalOrdered By: Tani Alford on 08-12-2024 Bilirubin [Mass/Vol] 0.42 mg/dL 0.00-1.30 [facility] CBC W/Diff, Automatedon 07-22 Absolute Lymph 0.96 X10 3/uL Normal 0.83-4.[address] [facility] Comment on above: Order Comment: PRASHANTH ORDERED EVERYTHINGDR KIP ORDERED MAX, CBCD, LDH, FE Performed By: #### L 501.6710, L501.9985, L503.6150, L300.3900, L100.0100, L503.6550, L500.4100, L504.2610, L3300.0700, L500.4050 ####[facility] [address] [place], [address] Absolute Neut 2.7 X10 3/uL Normal 2.0-7.[address] [facility] Comment on above: Order Comment: PRASHANTH ORDERED EVERYTHINGDR KIP ORDERED MAX, CBCD, LDH, FE Performed By: #### L 501.6710, L501.9985, L503.6150, L300.3900, L100.0100, L503.6550, L500.4100, L504.2610, L3300.0700, L500.4050 ####[facility] [address] [place], [place], [phone]) Basophils/100 WBC (Bld) 1.0 % Normal 0-[address] [facility] Comment on above: Order Comment: PRASHANTH ORDERED EVERYTHINGDR KIP ORDERED MAX, CBCD, LDH, FE Performed By: #### L 501.6710, L501.9985, L503.6150, L300.3900, L100.0100, L503.6550, L500.4100, L504.2610, L3300.0700, L500.4050 ####[facility] [address] [place], [address] Eosinophils/100 WBC (Bld) 2.4 % Normal 0-[address] [facility] Comment on above: Order Comment: PRASHANTH ORDERED EVERYTHINGDR KIP ORDERED MAX, CBCD, LDH, FE Performed By: #### L 501.6710, L501.9985, L503.6150, L300.3900, L100.0100, L503.6550, L500.4100, L504.2610, L3300.0700, L500.4050 ####[facility] [address] [place], [place], [phone] Erythrocyte distribution width (RBC) [Ratio] 16.4 % High 11.6-14.[address] [facility] Comment on above: Order Comment: PRASHANTH [facility] ORDERED MAX, CBCD, LDH, FE Performed By: #### L 501.6710, L501.9985, L503.6150, L300.3900, L100.0100, L503.6550, L500.4100, L504.2610, L3300.0700, L500.4050 ####[facility] [address] [place], [address] Hematocrit (Bld) [Volume fraction] 33.0 % Low 40-[address] [facility] Comment on above: Order Comment: PRASHANTH ORDERED [facility] ORDERED MAX, CBCD, LDH, FE Performed By: #### L 501.6710, L501.9985, L503.6150, L300.3900, L100.0100, L503.6550, L500.4100, L504.2610, L3300.0700, L500.4050 ####[facility] [address] [place], [place], [phone]) Hemoglobin (Bld) [Mass/Vol] 10.1 g/dL Low 13.0-16.[address] [facility] Comment on above: Order Comment: PRASHANTH ORDERED [facility] ORDERED MAX, CBCD, LDH, FE Performed By: #### L 501.6710, L501.9985, L503.6150, L300.3900, L100.0100, L503.6550, L500.4100, L504.2610, L3300.0700, L500.4050 ####[facility] [address] [place], [address] IG% 0.200 Normal 0.0-0.[address] [facility] Comment on above: Order Comment: PRASHANTH ORDERED [facility] ORDERED MAX, CBCD, LDH, FE Result Comment: IG% - Immature Granulocytes (promyelocytes, myelocytes andmetamyelocytes) > 1% indicates that a LEFT SHIFT is Present. Performed By: #### L 501.6710, L501.9985, L503.6150, L300.3900, L100.0100, L503.6550, L500.4100, L504.2610, L3300.0700, L500.4050 ####[facility] [address] [place], [address] Lymphocytes/100 WBC (Bld) 22.8 % Normal 19-[address] [facility] Comment on above: Order Comment: PRASHANTH ORDERED EVERYTHINGDR KIP ORDERED MAX, CBCD, LDH, FE Performed By: #### L 501.6710, L501.9985, L503.6150, L300.3900, L100.0100, L503.6550, L500.4100, L504.2610, L3300.0700, L500.4050 ####[facility] [address] [facility] [place], [address] MCH (RBC) [Entitic mass] 30.4 pg Normal 27.0-32.[address] [facility] Comment on above: Order Comment: PRASHANTH ORDERED EVERYTHINGDR KIP ORDERED MAX, CBCD, LDH, FE Performed By: #### L 501.6710, L501.9985, L503.6150, L300.3900, L100.0100, L503.6550, L500.4100, L504.2610, L3300.0700, L500.4050 ####[facility] [address] [place], [address] MCHC (RBC) [Mass/Vol] 30.6 g/dL Low 32-36 [facility] Comment on above: Order Comment: PRASHANTH ORDERED EVERYTHINGDR KIP ORDERED MAX, CBCD, LDH, FE Performed By: #### L 501.6710, L501.9985, L503.6150, L300.3900, L100.0100, L503.6550, L500.4100, L504.2610, L3300.0700, L500.4050 ####[facility] [address] [place], [address] MCV (RBC) [Entitic vol] 99.4 fL High 80-[address] [facility] Comment on above: Order Comment: PRASHANTH ORDERED EVERYTHINGDR KIP ORDERED MAX, CBCD, LDH, FE Performed By: #### L 501.6710, L501.9985, L503.6150, L300.3900, L100.0100, L503.6550, L500.4100, L504.2610, L3300.0700, L500.4050 ####[facility] [address] [place], [address] Monocytes/100 WBC (Bld) 8.6 % Normal 0-10 [facility] Comment on above: Order Comment: PRASHANTH ORDERED EVERYTHINGDR KIP ORDERED MAX, CBCD, LDH, FE Performed By: #### L 501.6710, L501.9985, L503.6150, L300.3900, L100.0100, L503.6550, L500.4100, L504.2610, L3300.0700, L500.4050 ####[facility] [address] [place], [address] Neutrophils/100 WBC (Bld) 65.0 % Normal 47-[address] [facility] Comment on above: Order Comment: PRASHANTH ORDERED EVERYTHINGDR KIP ORDERED MAX, CBCD, LDH, FE Performed By: #### L 501.6710, L501.9985, L503.6150, L300.3900, L100.0100, L503.6550, L500.4100, L504.2610, L3300.0700, L500.4050 ####[facility] [address] [place], [address] Nucleated RBC (Bld) [#/Vol] 0 10*3/uL Normal 0-[address] [facility] Comment on above: Order Comment: PRASHANTH ORDERED EVERYTHINGDR KIP ORDERED MAX, CBCD, LDH, FE Performed By: #### L 501.6710, L501.9985, L503.6150, L300.3900, L100.0100, L503.6550, L500.4100, L504.2610, L3300.0700, L500.4050 ####[facility] [address] [place], [address] Platelet mean volume (Bld) [Entitic vol] 9.5 fL Normal 6.2-12.[address] [facility] Comment on above: Order Comment: PRASHANTH ORDERED EVERYTHINGDR KIP ORDERED MAX, CBCD, LDH, FE Performed By: #### L 501.6710, L501.9985, L503.6150, L300.3900, L100.0100, L503.6550, L500.4100, L504.2610, L3300.0700, L500.4050 ####[facility] [address] [place], [address] Platelets (Bld) [#/Vol] 156 10*3/uL Normal 150-[address] [facility] Comment on above: Order Comment: PRASHANTH ORDERED EVERYTHINGDR [facility] ORDERED MAX, CBCD, LDH, FE Performed By: #### L 501.6710, L501.9985, L503.6150, L300.3900, L100.0100, L503.6550, L500.4100, L504.2610, L3300.0700, L500.4050 ####[facility] [address] [place], [address] RBC (Bld) [#/Vol] 3.32 10*6/uL Low 4.6-6.2 [facility] Comment on above: Order Comment: PRASHANTH ORDERED EVERYTHINGDR KIP ORDERED MAX, CBCD, LDH, FE Performed By: #### L 501.6710, L501.9985, L503.6150, L300.3900, L100.0100, L503.6550, L500.4100, L504.2610, L3300.0700, L500.4050 ####[facility] [address] [place], [address] RDW SD 59.3 fl High 35.1-43.[address] [facility] Comment on above: Order Comment: PRASHANTH ORDERED EVERYTHINGDR KIP ORDERED MAX, CBCD, LDH, FE Performed By: #### L 501.6710, L501.9985, L503.6150, L300.3900, L100.0100, L503.6550, L500.4100, L504.2610, L3300.0700, L500.4050 ####[facility] [address] [place], [address] WBC (Bld) [#/Vol] 4.2 10*3/uL Low 4.4-11.0 [facility] Comment on above: Order Comment: PRASHANTH ORDERED [facility] ORDERED MXA, CBCD, LDH, FE Performed By: #### L 501.6710, L501.9985, L503.6150, L300.3900, L100.0100, L503.6550, L500.4100, L504.2610, L3300.0700, L500.4050 ####[facility] [address] [place], [address] CRPon 08-12-2024 C-REACTIVE PROT 4.28 mg/L High 0.0-3.[address] [facility] Comment on above: Order Comment: PRASHANTH ORDERED EVERYTHINGDR KIP ORDERED MAX, CBCD, LDH, FE Performed By: #### L 501.6710, L501.9985, L503.6150, L300.3900, L100.0100, L503.6550, L500.4100, L504.2610, L3300.0700, L500.4050 ####[facility] [address] [place], [address] Calculated very low density lipoprotein (VLDL) cholesterol measurementOrdered By: Tani Alford on 08-12-2024 Calculated very low density lipoprotein (VLDL) cholesterol measurement 11 mg/dL 5-[address] [facility] Carbon dioxide, total [Moles /volume] in Central venous bloodOrdered By: Tani Alford on 08-12-2024 CO2 [Moles/Vol] 21.3 mmol/L 21.0-32.[address] [facility] Chloride assayOrdered By: Erika Alford on 08-12-2024 Chloride [Moles/Vol] 109 mmol/L High 98-108 [facility] Comprehensive Metabolic Prof ilon 08-12-2024 Albumin [Mass/Vol] 3.8 g/dL Normal 3.4-4.8 [facility] Comment on above: Order Comment: PRASHANTH ORDERED [facility] ORDERED MAX, CBCD, LDH, FE Performed By: #### L 501.6710, L501.9985, L503.6150, L300.3900, L100.0100, L503.6550, L500.4100, L504.2610, L3300.0700, L500.4050 ####[facility] [address] [place], [place], [address] Albumin/Globulin [Mass ratio] 0.9 {ratio} Normal 0.9-2.[address] [facility] Comment on above: Order Comment: PRASHANTH ORDERED [facility] ORDERED MAX, CBCD, LDH, FE Performed By: #### L 501.6710, L501.9985, L503.6150, L300.3900, L100.0100, L503.6550, L500.4100, L504.2610, L3300.0700, L500.4050 ####[facility] [address] [place], [place], [id number] ALK PHOS 230 U/L High 40-[address] [facility] Comment on above: Order Comment: PRASHANTH ORDERED EVERYTHINGDR [facility] ORDERED MAX, CBCD, LDH, FE Performed By: #### L 501.6710, L501.9985, L503.6150, L300.3900, L100.0100, L503.6550, L500.4100, L504.2610, L3300.0700, L500.4050 ####[facility] [address] [place], [address] ALT [Catalytic activity/Vol] 9 U/L Normal <=[address] [facility] Comment on above: Order Comment: PRASHANTH ORDERED EVERYTHINGDR [facility] ORDERED MAX, CBCD, LDH, FE Performed By: #### L 501.6710, L501.9985, L503.6150, L300.3900, L100.0100, L503.6550, L500.4100, L504.2610, L3300.0700, L500.4050 ####[facility] [address] [place], [address] AST [Catalytic activity/Vol] 18 U/L Normal <=[address] [facility] Comment on above: Order Comment: PRASHANTH ORDERED [facility] ORDERED MAX, CBCD, LDH, FE Performed By: #### L 501.6710, L501.9985, L503.6150, L300.3900, L100.0100, L503.6550, L500.4100, L504.2610, L3300.0700, L500.4050 ####[facility] [address] [place], [address] Bilirubin [Mass/Vol] 0.42 mg/dL Normal 0.00-1.30 [facility] Comment on above: Order Comment: [facility], CBCD, LDH, FE Performed By: #### L 501.6710, L501.9985, L503.6150, L300.3900, L100.0100, L503.6550, L500.4100, L504.2610, L3300.0700, L500.4050 ####[facility] [address] [place], [address] BUN/CRE 20.8 RATIO High 10-[address] [facility] Comment on above: Order Comment: PRASHANTH ORDERED EVERYTHINGDR KIP ORDERED MAX, CBCD, LDH, FE Performed By: #### L 501.6710, L501.9985, L503.6150, L300.3900, L100.0100, L503.6550, L500.4100, L504.2610, L3300.0700, L500.4050 ####[facility] [address] [place], [address] Calcium [Mass/Vol] 9.0 mg/dL Normal 7.6-11.0 [facility] Comment on above: Order Comment: PRASHANTH ORDERED EVERYTHINGDR [facility] ORDERED MAX, CBCD, LDH, FE Performed By: #### L 501.6710, L501.9985, L503.6150, L300.3900, L100.0100, L503.6550, L500.4100, L504.2610, L3300.0700, L500.4050 ####[facility] [address] [place], [address] Chloride [Moles/Vol] 109 mmol/L High 98-108 [facility] Comment on above: Order Comment: PRASHANTH ORDERED EVERYTHINGDR [facility] ORDERED MAX, CBCD, LDH, FE Performed By: #### L 501.6710, L501.9985, L503.6150, L300.3900, L100.0100, L503.6550, L500.4100, L504.2610, L3300.0700, L500.4050 ####[facility] [address] [place], [address] CO2 [Moles/Vol] 21.3 mmol/L Normal 21.0-32.[address] [facility] Comment on above: Order Comment: PRASHANTH ORDERED EVERYTHINGDR KIP ORDERED MAX, CBCD, LDH, FE Performed By: #### L 501.6710, L501.9985, L503.6150, L300.3900, L100.0100, L503.6550, L500.4100, L504.2610, L3300.0700, L500.4050 ####[facility] [address] [place], [place], [id number] Creatinine [Mass/Vol] 2.47 mg/dL High 0.70-1.20 [facility] Comment on above: Order Comment: PRASHANTH ORDERED EVERYTHINGDR KIP ORDERED MAX, CBCD, LDH, FE Performed By: #### L 501.6710, L501.9985, L503.6150, L300.3900, L100.0100, L503.6550, L500.4100, L504.2610, L3300.0700, L500.4050 ####[facility] [address] [place], [place], [id number] GAP 11 Normal 5-[address] [facility] Comment on above: Order Comment: [facility] ORDERED EVERYTHINGDR KIP ORDERED MAX, CBCD, LDH, FE Performed By: #### L 501.6710, L501.9985, L503.6150, L300.3900, L100.0100, L503.6550, L500.4100, L504.2610, L3300.0700, L500.4050 ####[facility] [address] [place], [place], [address] GFR/1.73 sq M.predicted among non-blacks MDRD (S/P/Bld) [Vol rate/Area] 28 mL/min/{1.73_m2} Low >[address] [facility] Comment on above: Order Comment: PRASHANTH ORDERED EVERYTHINGDR KIP ORDERED MAX, CBCD, LDH, FE Result Comment: mL/m in/1.73m2 CKD-EPI Creatinine Equation (2020) Performed By: #### L 501.6710, L501.9985, L503.6150, L300.3900, L100.0100, L503.6550, L500.4100, L504.2610, L3300.0700, L500.4050 ####[facility] [address] [place], [place], [phone] Globulin (S) [Mass/Vol] 4.3 g/dL High 2.2-4.2 [facility] Comment on above: Order Comment: PRASHANTH ORDERED EVERYTHINGDR KIP ORDERED MAX, CBCD, LDH, FE Performed By: #### L 501.6710, L501.9985, L503.6150, L300.3900, L100.0100, L503.6550, L500.4100, L504.2610, L3300.0700, L500.4050 ####[facility] [address] [place], [address] Glucose [Mass/Vol] 98 mg/dL Normal 70-99 [facility] Comment on above: Order Comment: [facility]ANTH [facility] ORDERED MAX, CBCD, LDH, FE Performed By: #### L 501.6710, L501.9985, L503.6150, L300.3900, L100.0100, L503.6550, L500.4100, L504.2610, L3300.0700, L500.4050 ####[facility] [address] [place], [address] Potassium [Moles/Vol] 5.3 mmol/L High 3.3-5.1 [facility] Comment on above: Order Comment: PRASHANTH ORDERED EVERYTHINGDR [facility] ORDERED MAX, CBCD, LDH, FE Performed By: #### L 501.6710, L501.9985, L503.6150, L300.3900, L100.0100, L503.6550, L500.4100, L504.2610, L3300.0700, L500.4050 ####[facility] [facility] [address] [place], [address] Sodium [Moles/Vol] 142 mmol/L Normal 133-145 [facility] Comment on above: Order Comment: PRASHANTH ORDERED EVERYTHINGDR [facility] ORDERED MAX, CBCD, LDH, FE Performed By: #### L 501.6710, L501.9985, L503.6150, L300.3900, L100.0100, L503.6550, L500.4100, L504.2610, L3300.0700, L500.4050 ####[facility] [address] [place], [place], [phone] T PROT 8.1 g/dL Normal 5.9-8.[address] [facility] Comment on above: Order Comment: PRASHANTH ORDERED EVERYTHINGDR [facility] ORDERED MAX, CBCD, LDH, FE Performed By: #### L 501.6710, L501.9985, L503.6150, L300.3900, L100.0100, L503.6550, L500.4100, L504.2610, L3300.0700, L500.4050 ####[facility] [address] [place], [place], [phone] Urea nitrogen [Mass/Vol] 51 mg/dL High 4-[address] [facility] Comment on above: Order Comment: PRASHANTH [facility] ORDERED MAX, CBCD, LDH, FE Performed By: #### L 501.6710, L501.9985, L503.6150, L300.3900, L100.0100, L503.6550, L500.4100, L504.2610, L3300.0700, L500.4050 ####[facility] [address] [place], [place], [phone] Eosinophil percentageOrdered By: Tani Alford on 08-12-2024 Eosinophils/100 WBC (Bld) 2.4 % 0-[address] [facility] Erythrocyte distribution wid th ratioOrdered By: Tani Alford on 08-12-2024 Erythrocyte distribution width (RBC) [Ratio] 16.4 % High 11.6-14.[address] [facility] Erythrocyte distribution wid th standard deviationOrdered By: Tani Alford on 08-12-2024 Erythrocyte distribution width (RBC) [Ratio] 59.3 fl High 35.1-43.[address] [facility] Ferritinon 08-12-2024 Ferritin [Mass/Vol] 71 ng/mL Normal 37-417 [facility] Comment on above: Order Comment: PRASHANTH ORDERED JONY SHIN ORDERED MAX, CBCD, LDH, FE Performed By: #### L 501.6710, L501.9985, L503.6150, L300.3900, L100.0100, L503.6550, L500.4100, L504.2610, L3300.0700, L500.4050 ####[facility] [address] [place], [place], [phone] Glomerular filtration rate ( GFR) estimation/1.73 sq m using serum, plasma, or whole bOrdered By: Tani Alford on 08-12-2024 GFR/1.73 sq M.predicted among non-blacks MDRD (S/P/Bld) [Vol rate/Area] 28 mL/min/{1.73_m2} Low >[address] [facility] Comment on above: mL/min/1.73m2 CKD-EP I Creatinine Equation (2020) Hematocrit Auto (Bld) [Volum e fraction]Ordered By: Tani Alford on 08-12-2024 Hematocrit (Bld) [Volume fraction] 33.0 % Low 40-[address] [facility] Hemoglobin A1con 08-12-2024 HbA1c (Bld) [Mass fraction] 5.2 % Normal <=5.[address] [facility] Comment on above: Order Comment: PRASHANTH ORDERED JONY SHIN ORDERED MAX, CBCD, LDH, FE Result Comment: Norm al < 5.7 % Prediabetic 5.7 - 6.4 % Diabetic >or= 6.5 % Please note range changes. Performed By: #### L 501.6710, L501.9985, L503.6150, L300.3900, L100.0100, L503.6550, L500.4100, L504.2610, L3300.0700, L500.4050 ####[facility] [address] [place], [place], [phone] Hemoglobin A1c percentageOrd ered By: Tani Alford on 08-12-2024 HbA1c (Bld) [Mass fraction] 5.2 % <5.[address] [facility] Comment on above: Normal < 5.7 % Predi abetic 5.7 - 6.4 % Diabetic >or= 6.5 % Please note range changes. Hemoglobin measurementOrdere d By: Tani Alford on 08-12-2024 Hemoglobin (Bld) [Mass/Vol] 10.1 g/dL Low 13.0-16.[address] [facility] Immature granulocytes/100 WB C Auto (Bld)Ordered By: Tani Alford on 08-12-2024 Immature granulocytes/100 WBC (Bld) 0.200 % 0.0-0.[address] [facility] Comment on above: IG% - Immature Granu locytes (promyelocytes, myelocytes and metamyelocytes) > 1% indicates that a LEFT SHIFT is Present. International normalized rat io (INR) calculationOrdered By: Tani Alford on 08-12-2024 INR Coag (Bld) [Relative time] 1.4 {INR} [facility] Ironon 08-12-2024 Iron [Mass/Vol] 37 ug/dL Low 65-[address] [facility] Comment on above: Order Comment: PRASHANTH ORDERED JONY SHIN ORDERED MAX, CBCD, LDH, FE Performed By: #### L 501.6710, L501.9985, L503.6150, L300.3900, L100.0100, L503.6550, L500.4100, L504.2610, L3300.0700, L500.4050 ####[facility] [address] [place], [place], [phone] Iron measurement (mass/mass) Ordered By: Tani Alford on 08-12-2024 Iron (Unsp spec) [Mass/Mass] 37 ug/dL Low 65-[address] [facility] LDHon 08-12-2024 LDH 181 U/L Normal 87-[address] [facility] Comment on above: Order Comment: PRASHANTH ORDERED EVERYTHINGDR KIP ORDERED MAX, CBCD, LDH, FE1 Performed By: #### L 501.6710, L501.9985, L503.6150, L300.3900, L100.0100, L503.6550, L500.4100, L504.2610, L3300.0700, L500.4050 ####[facility] [address] [place], [address] LDL calc ser/plasOrdered By: Tani Alford on 08-12-2024 Cholesterol in LDL [Mass/Vol] 26 mg/dL [facility] Comment on above: Twfhopkxud=955-934 m g/dL & Higher Uruc=945 mg/dL or greater Laboratory - Chemistry and C hemistry - challengeOrdered By: Tani Alford on 08-12-2024 AST [Catalytic activity/Vol] 18 U/L <[address] [facility] Lactate dehydrogenase (LDH) measurementOrdered By: Tani Alford on 08-12-2024 LDH [Catalytic activity/Vol] 181 U/L 87-[address] [facility] Lipid Profileon 08-12-2024 CHOL:HDL 1.[address] [facility] Comment on above: Order Comment: PRASHANTH ORDERED JONY [facility] ORDERED MAX, CBCD, LDH, FE Performed By: #### L 501.6710, L501.9985, L503.6150, L300.3900, L100.0100, L503.6550, L500.4100, L504.2610, L3300.0700, L500.4050 ####[facility] [address] [place], [place], [phone] Cholesterol [Mass/Vol] 85 mg/dL Normal <=200 [facility] Comment on above: Order Comment: PRASHANTH ORDERED [facility] ORDERED MAX, CBCD, LDH, FE Result Comment: Chol esterol level, Desirable <200 mg/dLBorderline high cholesterol 200-239 mg/dLHigh cholesterol >=240 mg/dLRecommendations of the NCEP Adult Treatment Panel for thefollowing risk-cutoff thresholds for the [place] Americanpopulation. Performed By: #### L 501.6710, L501.9985, L503.6150, L300.3900, L100.0100, L503.6550, L500.4100, L504.2610, L3300.0700, L500.4050 ####[facility] [address] [place], [address] Cholesterol in HDL [Mass/Vol] 48 mg/dL Normal [facility] Comment on above: Order Comment: PRASHANTH ORDERED EVERYTHINGDR KIP ORDERED MAX, CBCD, LDH, FE Result Comment: Kimberly onal Cholesterol Education Program (NCEP) guidelines:<40 mg/dL: Low HDL-cholesterol (major risk factor for CHD)>= 60 mg/dL: High HDL-cholesterol (negative risk factor forCHD)HDL-cholesterol is affected by a number of factors, e.g.smoking, exercise, hormones, sex and age. Performed By: #### L 501.6710, L501.9985, L503.6150, L300.3900, L100.0100, L503.6550, L500.4100, L504.2610, L3300.0700, L500.4050 ####[facility] [address] [place], [address] Cholesterol in LDL [Mass/Vol] 26 mg/dL Normal [facility] Comment on above: Order Comment: PRASHANTH ORDERED EVERYTHINGDR KIP ORDERED MAX, CBCD, LDH, FE Result Comment: Bord kdzfpl=647-503 mg/dL Higher Mkhg=674 mg/dL or greater Performed By: #### L 501.6710, L501.9985, L503.6150, L300.3900, L100.0100, L503.6550, L500.4100, L504.2610, L3300.0700, L500.4050 ####[facility] [address] [place], [address] Cholesterol in VLDL [Mass/Vol] 11 mg/dL Normal 5-[address] [facility] Comment on above: Order Comment: PRASHANTH ORDERED EVERYTHINGDR KIP ORDERED MAX, CBCD, LDH, FE Performed By: #### L 501.6710, L501.9985, L503.6150, L300.3900, L100.0100, L503.6550, L500.4100, L504.2610, L3300.0700, L500.4050 ####[facility] [address] [place], [place], [phone] Triglyceride [Mass/Vol] 57 mg/dL Normal [facility] Comment on above: Order Comment: PRASHANTH ORDERED EVERYTHINGDR KIP ORDERED MAX, CBCD, LDH, FE Result Comment: The drugs N-Acetylcysteine and Metamizole may falselydepress this assay.Normal range: <150 mg/dLBorderline High: 150-199 mg/dLHigh: 200-499 mg/dLVery High: >500 mg/dL Performed By: #### L 501.6710, L501.9985, L503.6150, L300.3900, L100.0100, L503.6550, L500.4100, L504.2610, L3300.0700, L500.4050 ####[facility] [address] [place], [place], [phone] MCV (mean corpuscular volume ) determinationOrdered By: Tani Alford on 08-12-2024 MCV (RBC) [Entitic vol] 99.4 fL High 80-94 [facility] Mean corpuscular hemoglobin (MCH) determinationOrdered By: Tani Alford on 08-12-2024 MCH (RBC) [Entitic mass] 30.4 pg 27.0-32.[address] [facility] Mean corpuscular hemoglobin concentration (MCHC) determinationOrdered By: Tani Alford on 08-12-2024 MCHC (RBC) [Mass/Vol] 30.6 g/dL Low 32-36 [facility] Mean platelet volume determi nationOrdered By: Tani Alford on 08-12-2024 Platelet mean volume (Bld) [Entitic vol] 9.5 fL 6.2-12.[address] [facility] Monocyte percentageOrdered B y: Tani Alford on 08-12-2024 Monocytes/100 WBC (Bld) 8.6 % 0-[address] [facility] Neutrophil percentageOrdered By: Tani Alford on 08-12-2024 Neutrophils/100 WBC (Bld) 65.0 % 47-[address] [facility] Nucleated red blood cell per centageOrdered By: Tani Alford on 08-12-2024 Nucleated RBC/100 WBC (Bld) [Ratio] 0 % 0-[address] [facility] Platelet countOrdered By: Erika Alford on 08-12-2024 Platelets (Bld) [#/Vol] 156 10*3/uL 150-[address] [facility] Potassium measurement (mass/ volume)Ordered By: Tani Alford on 08-12-2024 Potassium (Unsp spec) [Mass/Vol] 5.3 mmol/L High 3.3-5.[address] [facility] Prothrombin Time w/INRon INR Coag (PPP) [Relative time] 1.4 {INR} Normal [facility] Comment on above: Order Comment: PRASHANTH ORDERED EVERYTHINGDR [facility] ORDERED MAX, CBCD, LDH, FE Performed By: #### L 501.6710, L501.9985, L503.6150, L300.3900, L100.0100, L503.6550, L500.4100, L504.2610, L3300.0700, L500.4050 ####[facility] [address] [place], [place], [phone] PT Coag (PPP) [Time] 17.7 s High 11.7-14.9 [facility] Comment on above: Order Comment: PRASHANTH ORDERED EVERYTHINGDR [facility] ORDERED MAX, CBCD, LDH, FE Performed By: #### L 501.6710, L501.9985, L503.6150, L300.3900, L100.0100, L503.6550, L500.4100, L504.2610, L3300.0700, L500.4050 ####[facility] [address] [place], [address] Prothrombin timeOrdered By: Tani Alford on 08-12-2024 PT Coag (PPP) [Time] 17.7 s High 11.7-14.9 [facility] RBC Auto (Bld) [#/Vol]Ordere d By: Tani Alford on 08-12-2024 RBC (Bld) [#/Vol] 3.32 10*6/uL Low 4.6-6.2 [facility] Screening total cholesterol/ high density lipoprotein (HDL) cholesterol ratioOrdered By: Tani Alford on 08-12-2024 Cholesterol.total/Steph sterol in HDL [Mass ratio] 1.79 {ratio} [facility] Serum creatinine measurement (mass/volume)Ordered By: Tani Alford on 08-12-2024 Creatinine [Mass/Vol] 2.47 mg/dL High 0.70-1.20 [facility] Serum globulin measurementOr dered By: Tani Alford on 08-12-2024 Globulin (S) [Mass/Vol] 4.3 g/dL High 2.2-4.2 [facility] Serum glucose measurement (m ass/volume)Ordered By: Tani Alford on 08-12-2024 Glucose [Mass/Vol] 98 mg/dL 70-99 [facility] Serum or plasma C reactive p rotein measurement (mass/volume)Ordered By: Tani Alford on 08-12-2024 CRP [Mass/Vol] 4.28 mg/L High 0.0-3.[address] [facility] Serum or plasma alanine mitchell otransferase (ALT) measurementOrdered By: Tani Alford on 08-12-2024 ALT [Catalytic activity/Vol] 9 U/L <[address] [facility] Serum or plasma albumin lorena urement (mass/volume)Ordered By: Tani Alford on 08-12-2024 Albumin [Mass/Vol] 3.8 g/dL 3.4-4.8 [facility] Serum or plasma albumin/glob ulin mass ratioOrdered By: Tani Alford on 08-12-2024 Albumin/Globulin [Mass ratio] 0.9 {ratio} 0.9-2.[address] [facility] Serum or plasma alkaline karsten sphatase measurementOrdered By: Tani Alford on 08-12-2024 ALP [Catalytic activity/Vol] 230 U/L High 40-[address] [facility] Serum or plasma calcium lorena urement (mass/volume)Ordered By: Tani Alford on 08-12-2024 Calcium [Mass/Vol] 9.0 mg/dL 7.6-11.0 [facility] Serum or plasma cholesterol in HDL measurement (mass/volume)Ordered By: Tani Alford on 08-12-2024 Cholesterol in HDL [Mass/Vol] 48 mg/dL >[address] [facility] Comment on above: National Cholesterol Education Program (NCEP) guidelines:<40 mg/dL: Low HDL-cholesterol (major risk factor for CHD)>= 60 mg/dL: High HDL-cholesterol (negative risk factor for CHD)HDL-cholesterol is affected by a number of factors, e.g. smoking, exercise, hormones, sex and age. Serum or plasma cholesterol measurement (mass/volume)Ordered By: Tani Alford on 08-12-2024 Cholesterol [Mass/Vol] 85 mg/dL <201 [facility] Comment on above: Cholesterol level, D esirable <200 mg/dLBorderline high cholesterol 200-239 mg/dLHigh cholesterol >=240 mg/dLRecommendations of the NCEP Adult Treatment Panel for the following risk-cutoff thresholds for the [place] population. Serum or plasma ferritin bg surement (mass/volume)Ordered By: Tani Alford on 08-12-2024 Ferritin [Mass/Vol] 71 ng/mL 37-417 [facility] Serum or plasma urea nitroge n measurement (mass/volume)Ordered By: Tani Alford on 08-12-2024 Urea nitrogen [Mass/Vol] 51 mg/dL High 4-[address] [facility] Sodium levelOrdered By: Claire Alford on 08-12-2024 Sodium [Moles/Vol] 142 mmol/L 133-145 [facility] Total proteinOrdered By: Blanka Alford on 08-12-2024 Protein [Mass/Vol] 8.1 g/dL 5.9-8.4 [facility] Triglycerides measurementOrd ered By: Tani Alford on 08-12-2024 Triglyceride [Mass/Vol] 57 mg/dL <[address] [facility] Comment on above: The drugs N-Acetylcy steine and Metamizole may falsely depress this assay. Normal range: <150 mg/dLBorderline High: 150-199 mg/dLHigh: 200-499 mg/dLVery High: >500 mg/dL White blood cell (WBC) count Ordered By: Tani Alford on 08-12-2024 WBC (Bld) [#/Vol] 4.2 10*3/uL Low 4.4-11.0 [facility] Anion gap in Serum or Plasma Ordered By: Al Ramirez on 07-15-2024 Anion gap [Moles/Vol] 13 mmol/L 5-15 [facility] BUN/creatinine ratioOrdered By: Al Ramirez on 07-15-2024 Urea nitrogen/Creatinine [Mass ratio] 21.8 mg/mg High 10-[address] [facility] CBC-Complete Blood Cnt No Di ffon 07-15-2024 Erythrocyte distribution width (RBC) [Ratio] 17.2 % High 11.6-14.[address] [facility] Comment on above: Performed By: #### L 100.0500, L501.0900, L500.3600, L501.9940 ####[facility] [address] [place], [address] Hematocrit (Bld) [Volume fraction] 33.6 % Low 40-[address] [facility] Comment on above: Performed By: #### L 100.0500, L501.0900, L500.3600, L501.9940 ####[facility] [address] [place], [address] Hemoglobin (Bld) [Mass/Vol] 10.1 g/dL Low 13.0-16.[address] [facility] Comment on above: Performed By: #### L 100.0500, L501.0900, L500.3600, L501.9940 ####[facility] [address] [place], [address] MCH (RBC) [Entitic mass] 29.3 pg Normal 27.0-32.[address] [facility] Comment on above: Performed By: #### L 100.0500, L501.0900, L500.3600, L501.9940 ####[facility] [address] [place], [address] MCHC (RBC) [Mass/Vol] 30.1 g/dL Low 32-36 [facility] Comment on above: Performed By: #### L 100.0500, L501.0900, L500.3600, L501.9940 ####[facility] [address] [place], [address] MCV (RBC) [Entitic vol] 97.4 fL High 80-[address] [facility] Comment on above: Performed By: #### L 100.0500, L501.0900, L500.3600, L501.9940 ####[facility] [address] [place], [address] Platelet mean volume (Bld) [Entitic vol] 9.9 fL Normal 6.2-12.[address] [facility] Comment on above: Performed By: #### L 100.0500, L501.0900, L500.3600, L501.9940 ####[facility] [address] [place], [address] Platelets (Bld) [#/Vol] 139 10*3/uL Low 150-[address] [facility] Comment on above: Performed By: #### L 100.0500, L501.0900, L500.3600, L501.9940 ####[facility] [address] [place], [address] RBC (Bld) [#/Vol] 3.45 10*6/uL Low 4.6-6.2 [facility] Comment on above: Performed By: #### L 100.0500, L501.0900, L500.3600, L501.9940 ####[facility] [address] [place], [address] RDW SD 61.1 fl High 35.1-43.[address] [facility] Comment on above: Performed By: #### L 100.0500, L501.0900, L500.3600, L501.9940 ####[facility] [address] [place], [address] WBC (Bld) [#/Vol] 5.9 10*3/uL Normal 4.4-11.0 [facility] Comment on above: Performed By: #### L 100.0500, L501.0900, L500.3600, L501.9940 ####[facility] [address] [place], [address] Carbon dioxide, total [Moles /volume] in Central venous bloodOrdered By: Al Rmairez on 07-15-2024 CO2 [Moles/Vol] 18.7 mmol/L Low 21.0-32.[address] [facility] Chloride assayOrdered By: Leon Ramirez on 07-15-2024 Chloride [Moles/Vol] 109 mmol/L High 98-108 [facility] Erythrocyte distribution wid th ratioOrdered By: Al Ramirez on 07-15-2024 Erythrocyte distribution width (RBC) [Ratio] 17.2 % High 11.6-14.[address] [facility] Erythrocyte distribution wid th standard deviationOrdered By: Al Ramirez on 07-15-2024 Erythrocyte distribution width (RBC) [Ratio] 61.1 fl High 35.1-43.[address] [facility] Glomerular filtration rate ( GFR) estimation/1.73 sq m using serum, plasma, or whole bOrdered By: Al Ramirez on 07-15-2024 GFR/1.73 sq M.predicted among non-blacks MDRD (S/P/Bld) [Vol rate/Area] 29 mL/min/{1.73_m2} Low >[address] [facility] Comment on above: mL/min/1.73m2 CKD-EP I Creatinine Equation (2020) Hematocrit Auto (Bld) [Volum e fraction]Ordered By: Al Ramirez on 07-15-2024 Hematocrit (Bld) [Volume fraction] 33.6 % Low 40-[address] [facility] Hemoglobin measurementOrdere d By: Al Ramirez on 07-15-2024 Hemoglobin (Bld) [Mass/Vol] 10.1 g/dL Low 13.0-16.[address] [facility] MCV (mean corpuscular volume ) determinationOrdered By: Al Ramirez on 07-15-2024 MCV (RBC) [Entitic vol] 97.4 fL High 80-[address] [facility] Mean corpuscular hemoglobin (MCH) determinationOrdered By: Al Ramirez on 07-15-2024 MCH (RBC) [Entitic mass] 29.3 pg 27.0-32.[address] [facility] Mean corpuscular hemoglobin concentration (MCHC) determinationOrdered By: Al Ramirez on 07-15-2024 MCHC (RBC) [Mass/Vol] 30.1 g/dL Low 32-36 [facility] Mean platelet volume determi nationOrdered By: Al Ramirez on 07-15-2024 Platelet mean volume (Bld) [Entitic vol] 9.9 fL 6.2-12.[address] [facility] PSA,Total- Diagnosticon 06-22 PSA, DIAGNOSTIC 0.21 ng/mL Normal 0.00-4.[address] [facility] Comment on above: Result Comment: This test was performed using the [employer] tPSAmethod. Measured values of a patient??sample can varydepending on the testing procedure used. PSA valuesdetermined on patient samples by different testingprocedures cannot be used interchangeably. If there is achange in PSA assays while monitoring therapy, sequentialtesting should be performed to confirm baseline values. Performed By: #### L 100.0500, L501.0900, L500.3600, L501.9940 ####[facility] [address] [place], [place], [phone] Plastic Surgery Visit Report on 07-15-2024 Plastic Surgery Visit Report Normal [facility] Platelet countOrdered By: Leon Ramirez on 07-15-2024 Platelets (Bld) [#/Vol] 139 10*3/uL Low 150-[address] [facility] Potassium measurement (mass/ volume)Ordered By: Al Ramirez on 07-15-2024 Potassium (Unsp spec) [Mass/Vol] 5.3 mmol/L High 3.3-5.[address] [facility] Protein+Creatinine Ratio,Uri neon 07-15-2024 PROT:CRE RATIO 234 mg/g CRE High 0-[address] [facility] Comment on above: Performed By: #### L 100.0500, L501.0900, L500.3600, L501.9940 ####[facility] [address] [place], [address] Protein (U) [Mass/Vol] 10.5 mg/dL Normal 0.0-12.0 [facility] Comment on above: Performed By: #### L 100.0500, L501.0900, L500.3600, L501.9940 ####[facility] [address] [place], [address] UR CREAT 44.80 mg/dL Normal 39.00-259.[address] [facility] Comment on above: Performed By: #### L 100.0500, L501.0900, L500.3600, L501.9940 ####[facility] [address] [place], [address] RBC Auto (Bld) [#/Vol]Ordere d By: Al Ramirez on 07-15-2024 RBC (Bld) [#/Vol] 3.45 10*6/uL Low 4.6-6.2 [facility] Random urine creatinine lorena urement (mass/volume)Ordered By: Al Ramirez on 07-15-2024 Creatinine Unsp time (U) [Mass/Vol] 44.80 mg/dL 39.00-259.[address] [facility] Renal Profileon 07-15-2024 Albumin [Mass/Vol] 3.4 g/dL Normal 3.4-4.8 [facility] Comment on above: Performed By: #### L 100.0500, L501.0900, L500.3600, L501.9940 ####[facility] [address] [place], [address] BUN/CRE 21.8 RATIO High 10-[address] [facility] Comment on above: Performed By: #### L 100.0500, L501.0900, L500.3600, L501.9940 ####[facility] [address] [place], [address] Calcium [Mass/Vol] 8.1 mg/dL Normal 7.6-11.0 [facility] Comment on above: Performed By: #### L 100.0500, L501.0900, L500.3600, L501.9940 ####[facility] [address] [place], [address] Chloride [Moles/Vol] 109 mmol/L High 98-108 [facility] Comment on above: Performed By: #### L 100.0500, L501.0900, L500.3600, L501.9940 ####[facility] [address] [place], [address] CO2 [Moles/Vol] 18.7 mmol/L Low 21.0-32.[address] [facility] Comment on above: Performed By: #### L 100.0500, L501.0900, L500.3600, L501.9940 ####[facility] [address] [place], [address] Creatinine [Mass/Vol] 2.37 mg/dL High 0.70-1.20 [facility] Comment on above: Performed By: #### L 100.0500, L501.0900, L500.3600, L501.9940 ####[facility] [address] [place], [address] GAP 13 Normal 5-[address] [facility] Comment on above: Performed By: #### L 100.0500, L501.0900, L500.3600, L501.9940 ####[facility] [address] [place], [address] GFR/1.73 sq M.predicted among non-blacks MDRD (S/P/Bld) [Vol rate/Area] 29 mL/min/{1.73_m2} Low >[address] [facility] Comment on above: Result Comment: mL/m in/1.73m2 CKD-EPI Creatinine Equation (2020) Performed By: #### L 100.0500, L501.0900, L500.3600, L501.9940 ####[facility] [address] [place], [address] Glucose [Mass/Vol] 98 mg/dL Normal 70-99 [facility] Comment on above: Performed By: #### L 100.0500, L501.0900, L500.3600, L501.9940 ####[facility] [address] [place], [address] Potassium [Moles/Vol] 5.3 mmol/L High 3.3-5.1 [facility] Comment on above: Performed By: #### L 100.0500, L501.0900, L500.3600, L501.9940 ####[facility] [address] [place], [address] Sodium [Moles/Vol] 141 mmol/L Normal 133-145 [facility] Comment on above: Performed By: #### L 100.0500, L501.0900, L500.3600, L501.9940 ####[facility] [address] [place], [address] Urea nitrogen [Mass/Vol] 52 mg/dL High 4-[address] [facility] Comment on above: Performed By: #### L 100.0500, L501.0900, L500.3600, L501.9940 ####[facility] [address] [place], [address] Serum creatinine measurement (mass/volume)Ordered By: Al Ramirez on 07-15-2024 Creatinine [Mass/Vol] 2.37 mg/dL High 0.70-1.20 [facility] Serum glucose measurement (m ass/volume)Ordered By: Al Ramirez on 07-15-2024 Glucose [Mass/Vol] 98 mg/dL 70-99 [facility] Serum or plasma albumin lorena urement (mass/volume)Ordered By: Al Ramirez on 07-15-2024 Albumin [Mass/Vol] 3.4 g/dL 3.4-4.8 [facility] Serum or plasma calcium lorena urement (mass/volume)Ordered By: Al Ramirez on 07-15-2024 Calcium [Mass/Vol] 8.1 mg/dL 7.6-11.0 [facility] Serum or plasma urea nitroge n measurement (mass/volume)Ordered By: Al Ramirez on 07-15-2024 Urea nitrogen [Mass/Vol] 52 mg/dL High 4-[address] [facility] Sodium levelOrdered By: Mahad Ramirez on 07-15-2024 Sodium [Moles/Vol] 141 mmol/L 133-145 [facility] Urine protein measurement (m ass/volume)Ordered By: Al Ramirez on 07-15-2024 Protein (U) [Mass/Vol] 10.5 mg/dL 0.0-12.0 [facility] Urine protein/creatinine mas s ratioOrdered By: Al Ramirez on 07-15-2024 Protein/Creatinine (U) [Mass ratio] 234 mg/g CRE High 0-[address] [facility] White blood cell (WBC) count Ordered By: Al Ramirez on 07-15-2024 WBC (Bld) [#/Vol] 5.9 10*3/uL 4.4-11.0 [facility] CBC W Auto Differential pane l (Bld)on 06-24-2024 Basophils (Bld) [#/Vol] 0.04 10*3/uL Normal <0.11 [facility] Comment on above: Order Comment: Speci men Type: BLOOD SPECIMEN Ordering Facility: [facility] Address: [address] [place] [address] Performed By: #### 5 7021-8 #### [facility] CLIA [id number] [address] [place] [address] [place] Basophils/100 WBC (Bld) 0.8 % Normal [facility] Comment on above: Order Comment: Speci men Type: BLOOD SPECIMEN Ordering Facility: [facility] Address: [address] [place] [address] Performed By: #### 5 7021-8 #### [facility] CLIA [id number] [address] [place] [address] [place] Differential cell count method Nom (Bld) Auto Normal [facility] Comment on above: Order Comment: Speci men Type: BLOOD SPECIMEN Ordering Facility: [facility] Address: [address] [place] [address] Performed By: #### 5 7021-8 #### [facility] CLIA [id number] [address] [place] [address] [place] Eosinophils (Bld) [#/Vol] 0.14 10*3/uL Normal <0.46 [facility] Comment on above: Order Comment: Speci men Type: BLOOD SPECIMEN Ordering Facility: [facility] Address: [address] [place] [address] Performed By: #### 5 7021-8 #### [facility] CLIA [id number] [address] [place] [address] [place] Eosinophils/100 WBC (Bld) 2.9 % Normal [facility] Comment on above: Order Comment: Speci men Type: BLOOD SPECIMEN Ordering Facility: [facility] Address: [address] [place] [address] Performed By: #### 5 7021-8 #### [facility] CLIA [id number] [address] [place] [address] [place] Erythrocyte distribution width (RBC) [Ratio] 17.8 % High 11.5-15.0 [facility] Comment on above: Order Comment: Speci men Type: BLOOD SPECIMEN Ordering Facility: [facility] Address: [address] [place] [address] Performed By: #### 5 7021-8 #### [facility] CLIA [id number] [address] [place] [address] [place] Hematocrit (Bld) [Volume fraction] 31.1 % Low 39.0-51.0 [facility] Comment on above: Order Comment: Speci men Type: BLOOD SPECIMEN Ordering Facility: [facility] Address: [address] [place] [address] Performed By: #### 5 7021-8 #### [id number] [address] [place] [address] [place] Hemoglobin (Bld) [Mass/Vol] 9.5 g/dL Low 13.0-17.0 [facility] Comment on above: Order Comment: Speci men Type: BLOOD SPECIMEN Ordering Facility: [facility] Address: [address] [place] [address] Performed By: #### 5 7021-8 #### [facility] [id number] [address] [place] [address] [place] Immature granulocytes (Bld) [#/Vol] 10*3/uL Normal <0.10 [facility] Comment on above: Order Comment: Speci men Type: BLOOD SPECIMEN Ordering Facility: [facility] Address: [address] [place] [address] Performed By: #### 5 7021-8 #### [facility] [id number] [address] [place] [address] [place] Immature granulocytes/100 WBC (Bld) 0.2 % Normal [facility] Comment on above: Order Comment: Speci men Type: BLOOD SPECIMEN Ordering Facility: [facility] Address: [address] [place] [address] Performed By: #### 5 7021-8 #### [facility] CLIA [id number] [address] [place] [address] [place] Lymphocytes (Bld) [#/Vol] 1.19 10*3/uL Normal 1.00-4.00 [facility] Comment on above: Order Comment: Speci men Type: BLOOD SPECIMEN Ordering Facility: [facility] Address: [address] [place] [address] Performed By: #### 5 7021-8 #### [facility] CLIA [id number] [address] [place] [address] [place] Lymphocytes/100 WBC (Bld) 24.9 % Normal [facility] Comment on above: Order Comment: Speci men Type: BLOOD SPECIMEN Ordering Facility: [facility] Address: [address] [place] [address] Performed By: #### 5 7021-8 #### [facility] CLIA [id number] [address] [place] [address] [place] MCH (RBC) [Entitic mass] 29.0 pg Normal 26.0-34.0 [facility] Comment on above: Order Comment: Speci men Type: BLOOD SPECIMEN Ordering Facility: [facility] Address: [address] [place] [address] Performed By: #### 5 7021-8 #### [facility] CLIA [id number] [address] [place] [address] [place] MCHC (RBC) [Mass/Vol] 30.5 g/dL Normal 30.5-36.0 [facility] Comment on above: Order Comment: Speci men Type: BLOOD SPECIMEN Ordering Facility: [facility] Address: [address] [place] [address] Performed By: #### 5 7021-8 #### [facility] CLIA [id number] [address] [place] [address] [place] MCV (RBC) [Entitic vol] 94.8 fL Normal 80.0-100.0 [facility] Comment on above: Order Comment: Speci men Type: BLOOD SPECIMEN Ordering Facility: [facility] Address: [address] [place], [place] [address] Performed By: #### 5 7021-8 #### [facility] CLIA [id number] [address] [place] [address] [place] Monocytes (Bld) [#/Vol] 0.51 10*3/uL Normal <0.87 [facility] Comment on above: Order Comment: Speci men Type: BLOOD SPECIMEN Ordering Facility: [facility] Address: [address] [place] [address] Performed By: #### 5 7021-8 #### [facility] CLIA [id number] [address] [place] [address] [place] Monocytes/100 WBC (Bld) 10.7 % Normal [facility] Comment on above: Order Comment: Speci men Type: BLOOD SPECIMEN Ordering Facility: [facility] Address: [address] [place], [place] [address] Performed By: #### 5 7021-8 #### [facility] CLIA [id number] [address] [place] [address] [place] Neutrophils (Bld) [#/Vol] 2.88 10*3/uL Normal 1.45-7.50 [facility] Comment on above: Order Comment: Speci men Type: BLOOD SPECIMEN Ordering Facility: [facility] Address: [address] [place] [address] Performed By: #### 5 7021-8 #### [facility] CLIA [id number] [address] [place] [address] [place] Neutrophils/100 WBC (Bld) 60.5 % Normal [facility] Comment on above: Order Comment: Speci men Type: BLOOD SPECIMEN Ordering Facility: [facility] Address: [address] [place] [address] Performed By: #### 5 7021-8 #### [facility] CLIA [id number] [address] [place] [address] [place] Nucleated RBC (Bld) [#/Vol] 10*3/uL Normal <0.01 [facility] Comment on above: Order Comment: Speci men Type: BLOOD SPECIMEN Ordering Facility: [facility] Address: [address] [place] [address] Performed By: #### 5 7021-8 #### [facility] CLIA [id number] [address] [place] [address] [place] Nucleated RBC/100 WBC (Bld) [Ratio] 0.0 /100 WBC Normal [facility] Comment on above: Order Comment: Speci men Type: BLOOD SPECIMEN Ordering Facility: [facility] Address: [address] [place] [address] Performed By: #### 5 7021-8 #### [facility] CLIA [id number] [address] [place] [address] [place] Platelet mean volume (Bld) [Entitic vol] 9.3 fL Normal 9.0-12.7 [facility] Comment on above: Order Comment: Speci men Type: BLOOD SPECIMEN Ordering Facility: [facility] Address: [address] [place] [address] Performed By: #### 5 7021-8 #### [facility] CLIA [id number] [address] [place] [address] [place] Platelets (Bld) [#/Vol] 144 10*3/uL Low 150-400 [facility] Comment on above: Order Comment: Speci men Type: BLOOD SPECIMEN Ordering Facility: [facility] Address: [address] [place] [address] Performed By: #### 5 7021-8 #### [facility] CLIA [id number] [address] [place] [address] [place] RBC (Bld) [#/Vol] 3.28 10*6/uL Low 4.20-6.00 [facility] Comment on above: Order Comment: Speci men Type: BLOOD SPECIMEN Ordering Facility: [facility] Address: [address] [place] [address] Performed By: #### 5 7021-8 #### [facility] CLIA [id number] [address] [place] [address] [place] WBC (Bld) [#/Vol] 4.77 10*3/uL Normal 3.70-11.00 [facility] Comment on above: Order Comment: Speci men Type: BLOOD SPECIMEN Ordering Facility: [facility] Address: [address] [place] [address] Performed By: #### 5 7021-8 #### [id number] [address] [place] [address] [place] Ferritin SerPl-mCncon 2024 Ferritin [Mass/Vol] 105.0 ng/mL Normal 30.3-565.7 [facility] Comment on above: Order Comment: Speci men Type: BLOOD SPECIMEN Ordering Facility: [facility] Address: [address] [place] [address] Performed By: #### 5 0190-8, 2276-4, 2132-9 #### [facility] CLIA [id number] [address] [place] [address] [place] Iron and Iron binding capaci ty panelon 06-24-2024 Iron [Mass/Vol] 39 ug/dL Low 41-186 [facility] Comment on above: Order Comment: Speci men Type: BLOOD SPECIMEN Ordering Facility: [facility] Address: [address] [place], [place] [address] Performed By: #### 5 0190-8, 2275-06, 2131-11 #### [facility] CLIA [id number] [address] [place], [place] [address] [place] Iron binding capacity [Mass/Vol] 323 ug/dL Normal 232-386 [facility] Comment on above: Order Comment: Speci men Type: BLOOD SPECIMEN Ordering Facility: [facility] Address: [address] [place], [place] [address] Performed By: #### 5 0190-8, 2275-06, 2131-11 #### [facility] CLIA [id number] [address] [place], [place] [address] [place] Iron/TIBC [Molar ratio] 12.1 % Low 15.0-57.0 [facility] Comment on above: Order Comment: Speci men Type: BLOOD SPECIMEN Ordering Facility: [facility] Address: [address] [place] [address] Performed By: #### 5 0190-8, 2275-06, 2131-11 #### [facility] CLIA [id number] [address] [place], [place] [address] [place] Vit B12 SerPl-ncon 025 Cobalamin (Vitamin B12) [Mass/Vol] 502 pg/mL Normal 232-1245 [facility] Comment on above: Order Comment: Speci men Type: BLOOD SPECIMEN Ordering Facility: [facility] Address: [address] [place], [place] [address] Performed By: #### 5 0190-8, 2275-06, 2131-11 #### [facility] CLIA [id number] [address] [place], [place] [address] [place] Surgery Visit Reporton 06-23 Surgery Visit Report Normal [facility] Culture, Anaerobic Any Sourc martínez 06-21-[address] [facility] Comment on above: Performed By: #### M 100.3000, M100.4001, M100.1999 ####[facility] [address] [place], [address] Wound Cultureon 06-19-[address] [facility] Comment on above: Performed By: #### M 100.3000, M100.4001, M100.1999 ####[facility] [address] [place], [address] Anaerobic cultureOrdered By: Birdie Hernandes on 06-15-2024 Bacteria identified Anaer cx Nom (Unsp spec) Bacteroides thetaiotaomicron Abnormal [facility] Bacteria identified Anaer cx Nom (Unsp spec) Actinotignum schaalii Abnormal [facility] Bacteria identified Anaer cx Nom (Unsp spec) Prevotella melaninogenica Abnormal [facility] Gram Stainon 06-15-2024 GS ONLY AN AEROBIC SWAB WAS RECEIVED FOR CULTURE. GROWTH OF ANAEROBES MAY BE INHIBITED. Left gluteal abscess Gram Stain Rare Gram positive cocci Rare Gram negative rods 2+ White Blood Cells No Epithelial cells Normal [facility] Comment on above: Performed By: #### M 100.3000, M100.4001, M100.1999 ####[facility] [address] [place], [address] Gram stainOrdered By: Birdie Hernandes on 06-15-2024 Microscopic observation Gram stain Nom (Unsp spec) [facility] Routine wound cultureOrdered By: Birdie Hernandes on 06-15-2024 Wound Culture Schaalia odontolyticus Abnormal [facility] Surgery Visit Reporton 06-15 Surgery Visit Report Normal [facility] 6 Minute Walk Teston 025 6 Minute Walk Test Normal [facility] Pulmonary Visit Reporton Pulmonary Visit Report Normal [facility] Blood manual differential co mment interpretation (narrative result)Ordered By: Al Ramirez on 04-25-2024 Manual differential comment Ron (Bld) [Interp] COMMENT [facility] Comment on above: 1+ ANISO. Blood urea nitrogen (BUN)/cr eatinine ratioOrdered By: Al Ramirez on 04-25-2024 Urea nitrogen/Creatinine [Mass ratio] 26.3 mg/mg High 10-[address] [facility] CBC-Complete Blood Cnt No Di ffon 04-25-2024 Erythrocyte distribution width (RBC) [Ratio] 19.1 % High 11.6-14.[address] [facility] Comment on above: Performed By: #### L 100.0500, L100.4500, L501.0900, L500.3600 ####[facility] [address] [place], [address] Hematocrit (Bld) [Volume fraction] 30.4 % Low 40-[address] [facility] Comment on above: Performed By: #### L 100.0500, L100.4500, L501.0900, L500.3600 ####[facility] [address] [place], [address] Hemoglobin (Bld) [Mass/Vol] 8.6 g/dL Low 13.0-16.[address] [facility] Comment on above: Performed By: #### L 100.0500, L100.4500, L501.0900, L500.3600 ####[facility] [address] [place], [address] MCH (RBC) [Entitic mass] 26.8 pg Low 27.0-32.[address] [facility] Comment on above: Performed By: #### L 100.0500, L100.4500, L501.0900, L500.3600 ####[facility] [address] [place], [address] MCHC (RBC) [Mass/Vol] 28.3 g/dL Low 32-36 [facility] Comment on above: Performed By: #### L 100.0500, L100.4500, L501.0900, L500.3600 ####[facility] [address] [place], [address] MCV (RBC) [Entitic vol] 94.7 fL High 80-[address] [facility] Comment on above: Performed By: #### L 100.0500, L100.4500, L501.0900, L500.3600 ####[facility] [address] [place], [address] Platelet mean volume (Bld) [Entitic vol] 9.5 fL Normal 6.2-12.[address] [facility] Comment on above: Performed By: #### L 100.0500, L100.4500, L501.0900, L500.3600 ####[facility] [address] [place], [address] Platelets (Bld) [#/Vol] 152 10*3/uL Normal 150-[address] [facility] Comment on above: Performed By: #### L 100.0500, L100.4500, L501.0900, L500.3600 ####[facility] [address] [place], [address] RBC (Bld) [#/Vol] 3.21 10*6/uL Low 4.6-6.2 [facility] Comment on above: Performed By: #### L 100.0500, L100.4500, L501.0900, L500.3600 ####[facility] [address] [place], [address] RDW SD 65.3 fl High 35.1-43.[address] [facility] Comment on above: Performed By: #### L 100.0500, L100.4500, L501.0900, L500.3600 ####[facility] [address] [place], [address] WBC (Bld) [#/Vol] 5.1 10*3/uL Normal 4.4-11.0 [facility] Comment on above: Performed By: #### L 100.0500, L100.4500, L501.0900, L500.3600 ####[facility] [address] [place], [place], [id number] Carbon dioxide measurementOr dered By: Al Ramirez on 04-25-2024 CO2 [Moles/Vol] 22.0 mmol/L 21.0-32.[address] [facility] Chloride measurementOrdered By: Al Ramirez on 04-25-2024 Chloride [Moles/Vol] 110 mmol/L High 98-107 [facility] Differential Commenton 04-25 SMEAR COMMENT COMMENT Normal [facility] Comment on above: Result Comment: 1+ A NISO. Performed By: #### L 100.0500, L100.4500, L501.0900, L500.3600 ####[facility] [address] [place], [place], [id number] Erythrocyte distribution wid th ratioOrdered By: Al Ramirez on 04-25-2024 Erythrocyte distribution width (RBC) [Ratio] 19.1 % High 11.6-14.[address] [facility] Erythrocyte distribution wid th standard deviationOrdered By: Al Ramirez on 04-25-2024 Erythrocyte distribution width (RBC) [Entitic vol] 65.3 fL High 35.1-43.[address] [facility] Erythrocyte distribution width (RBC) [Ratio] 65.3 fl High 35.1-43.[address] [facility] Estimated glomerular filtrat ion rate (GFR) AmericanOrdered By: Al Ramirez on 04-25-2024 Estimated GFR (MDRD) Amer 42 mL/min Low >[address] [facility] Comment on above: GFR Calc Glomerular filtration rate ( GFR) estimationOrdered By: Al Ramirez on 04-25-2024 Estimated GFR (MDRD) Non-Af Amer 35 mL/min Low >[address] [facility] Comment on above: Non- GFR Calc GFR/1.73 sq M.predicted among non-blacks MDRD (S/P/Bld) [Vol rate/Area] 35 mL/min/{1.73_m2} Low >[address] [facility] Comment on above: Non- GFR Calc Glucose measurementOrdered B y: Al Ramirez on 04-25-2024 Glucose [Mass/Vol] 95 mg/dL 74-106 [facility] Hematocrit Auto (Bld) [Volum e fraction]Ordered By: Al Ramirez on 04-25-2024 Hematocrit (Bld) [Volume fraction] 30.4 % Low 40-[address] [facility] Hemoglobin measurementOrdere d By: Al Ramirez on 04-25-2024 Hemoglobin (Bld) [Mass/Vol] 8.6 g/dL Low 13.0-16.[address] [facility] MCV (mean corpuscular volume ) determinationOrdered By: Al Ramirez on 04-25-2024 MCV (RBC) [Entitic vol] 94.7 fL High 80-[address] [facility] Manual differential comment Ron (Bld) [Interp]Ordered By: Al Ramirez on 04-25-2024 Differential Comment COMMENT [facility] Comment on above: 1+ ANISO. Mean corpuscular hemoglobin (MCH) determinationOrdered By: Al Ramirez on 04-25-2024 MCH (RBC) [Entitic mass] 26.8 pg Low 27.0-32.[address] [facility] Mean corpuscular hemoglobin concentration (MCHC) determinationOrdered By: Al Ramirez on 04-25-2024 MCHC (RBC) [Mass/Vol] 28.3 g/dL Low 32-36 [facility] Mean platelet volume determi nationOrdered By: Al Ramirez on 04-25-2024 Platelet mean volume (Bld) [Entitic vol] 9.5 fL 6.2-12.[address] [facility] Phosphorus measurementOrdere d By: Al Ramirez on 04-25-2024 Phosphorus Level 4.8 mg/dL 2.5-4.[address] [facility] Platelet countOrdered By: Leon Ramirez on 04-25-2024 Platelets (Bld) [#/Vol] 152 10*3/uL 150-[address] [facility] Potassium measurementOrdered By: Al Ramirez on 04-25-2024 Potassium [Moles/Vol] 4.8 mmol/L 3.5-5.1 [facility] Protein+Creatinine Ratio,Uri neon 04-25-2024 PROT:CRE RATIO 4845 mg/g CRE High 0-[address] [facility] Comment on above: Performed By: #### L 100.0500, L100.4500, L501.0900, L500.3600 ####[facility] [address] [place], [address] UR CREAT 30.90 mg/dL Normal NO RANGE EST. [facility] Comment on above: Performed By: #### L 100.0500, L100.4500, L501.0900, L500.3600 ####[facility] [address] [place], [place], [address] Protein/Creatinine (U) [Mass ratio]Ordered By: Al Ramirez on 04-25-2024 Urine Protein/Creatinine Ratio 4845 mg/g CRE High 0-[address] [facility] RBC Auto (Bld) [#/Vol]Ordere d By: Al Ramirez on 04-25-2024 RBC (Bld) [#/Vol] 3.21 10*6/uL Low 4.6-6.2 [facility] Random urine protein measure mentOrdered By: Al Ramirez on 04-25-2024 Protein (U) [Mass/Vol] 149.7 mg/dL High <11.9 [facility] Comment on above: Performed By: #### L 100.0500, L100.4500, L501.0900, L500.3600 ####[facility] [address] [place], [place], [id number] Renal Profileon 04-25-2024 Albumin [Mass/Vol] 2.8 g/dL Low 3.2-5.0 [facility] Comment on above: Performed By: #### L 100.0500, L100.4500, L501.0900, L500.3600 ####[facility] [address] [place], [address] BUN/CRE 26.3 RATIO High 10-[address] [facility] Comment on above: Performed By: #### L 100.0500, L100.4500, L501.0900, L500.3600 ####[facility] [address] [place], [address] CA,Total 8.6 mg/dL Normal 8.5-10.[address] [facility] Comment on above: Performed By: #### L 100.0500, L100.4500, L501.0900, L500.3600 ####[facility] [address] [place], [address] Chloride [Moles/Vol] 110 mmol/L High 98-107 [facility] Comment on above: Performed By: #### L 100.0500, L100.4500, L501.0900, L500.3600 ####[facility] [address] [place], [address] CO2 [Moles/Vol] 22.0 mmol/L Normal 21.0-32.[address] [facility] Comment on above: Performed By: #### L 100.0500, L100.4500, L501.0900, L500.3600 ####[facility] [address] [place], [address] Creatinine [Mass/Vol] 2.05 mg/dL High 0.70-1.30 [facility] Comment on above: Result Comment: The validity of the calculated GFR GFRAA in patients over70 years has not been determined. Clinical correlation isessential. Performed By: #### L 100.0500, L100.4500, L501.0900, L500.3600 ####[facility] [address] [place], [address] EST GFR - AA 42 mL/min Low >[address] [facility] Comment on above: Result Comment: Afri can [place] GFR Calc Performed By: #### L 100.0500, L100.4500, L501.0900, L500.3600 ####[facility] [address] [place], [address] GFR/1.73 sq M.predicted among non-blacks MDRD (S/P/Bld) [Vol rate/Area] 35 mL/min/{1.73_m2} Low >[address] [facility] Comment on above: Result Comment: Non- GFR Calc Performed By: #### L 100.0500, L100.4500, L501.0900, L500.3600 ####[facility] [address] [place], [address] Glucose [Mass/Vol] 95 mg/dL Normal 74-106 [facility] Comment on above: Performed By: #### L 100.0500, L100.4500, L501.0900, L500.3600 ####[facility] [address] [place], [address] Phosphate [Mass/Vol] 4.8 mg/dL Normal 2.5-4.9 [facility] Comment on above: Performed By: #### L 100.0500, L100.4500, L501.0900, L500.3600 ####[facility] [address] [place], [address] Potassium [Moles/Vol] 4.8 mmol/L Normal 3.5-5.1 [facility] Comment on above: Performed By: #### L 100.0500, L100.4500, L501.0900, L500.3600 ####[facility] [address] [place], [address] Sodium [Moles/Vol] 139 mmol/L Normal 136-145 [facility] Comment on above: Performed By: #### L 100.0500, L100.4500, L501.0900, L500.3600 ####[facility] [address] [place], [address] Urea nitrogen [Mass/Vol] 54 mg/dL High [address] [facility] Comment on above: Performed By: #### L 100.0500, L100.4500, L501.0900, L500.3600 ####[facility] [address] [place], [address] Serum or plasma albumin lorena urement (mass/volume)Ordered By: Al Ramirez on 04-25-2024 Albumin [Mass/Vol] 2.8 g/dL Low 3.2-5.0 [facility] Serum or plasma calcium lorena urement (mass/volume)Ordered By: Al Ramirez on 04-25-2024 Calcium [Mass/Vol] 8.6 mg/dL 8.5-10.1 [facility] Serum or plasma creatinine m easurement (mass/volume)Ordered By: Al Ramirez on 04-25-2024 Creatinine [Mass/Vol] 2.05 mg/dL High 0.70-1.30 [facility] Comment on above: The validity of the calculated GFR & GFRAA in patients over 70 years has not been determined. Clinical correlation is essential. Serum or plasma urea nitroge n measurement (mass/volume)Ordered By: Al Ramirez on 04-25-2024 Urea nitrogen [Mass/Vol] 54 mg/dL High 10-[address] [facility] Sodium levelOrdered By: Mahad Ramirez on 04-25-2024 Sodium [Moles/Vol] 139 mmol/L 136-145 [facility] Urine creatinine measurement (mass/volume)Ordered By: Al Ramirez on 04-25-2024 Creatinine (U) [Mass/Vol] 30.90 mg/dL NO RANGE EST. [facility] Urine protein/creatinine mas s ratioOrdered By: Al Ramirez on 04-25-2024 Protein/Creatinine (U) [Mass ratio] 4845 mg/g CRE High 0-[address] [facility] White blood cell (WBC) count Ordered By: Al Ramirez on 04-25-2024 WBC (Bld) [#/Vol] 5.1 10*3/uL 4.4-11.0 [facility] Basic Metabolic Profile (BMP )on 04-11-2024 BUN Normal 7-[address] [facility] Comment on above: Result Comment: Canc elled via OM: Order cancelled - Patient discharged Performed By: #### L 100.0100, L500.2500 ####[facility] [address] [place], [address] BUN/CRE Normal 10-[address] [facility] Comment on above: Result Comment: Canc elled via OM: Order cancelled - Patient discharged Performed By: #### L 100.0100, L500.2500 ####[facility] [address] [place], [address] CA,Total Normal 8.5-10.[address] [facility] Comment on above: Result Comment: Canc elled via OM: Order cancelled - Patient discharged Performed By: #### L 100.0100, L500.2500 ####[facility] [address] [place], [address] CL Normal 98-[address] [facility] Comment on above: Result Comment: Canc elled via OM: Order cancelled - Patient discharged Performed By: #### L 100.0100, L500.2500 ####[facility] [address] [place], [address] CO2 Normal 21.0-32.[address] [facility] Comment on above: Result Comment: Canc elled via OM: Order cancelled - Patient discharged Performed By: #### L 100.0100, L500.2500 ####[facility] [address] [place], [address] CREAT,SERUM Normal 0.70-1.[address] [facility] Comment on above: Result Comment: Canc elled via OM: Order cancelled - Patient discharged Performed By: #### L 100.0100, L500.2500 ####[facility] [address] [place], [address] EST GFR Normal >[address] [facility] Comment on above: Result Comment: Canc elled via OM: Order cancelled - Patient discharged Performed By: #### L 100.0100, L500.2500 ####[facility] [address] [place], [address] EST GFR - AA Normal >[address] [facility] Comment on above: Result Comment: Canc elled via OM: Order cancelled - Patient discharged Performed By: #### L 100.0100, L500.2500 ####[facility] [address] [place], [address] GAP Normal 5-[address] [facility] Comment on above: Result Comment: Canc elled via OM: Order cancelled - Patient discharged Performed By: #### L 100.0100, L500.2500 ####[facility] [address] [place], [address] GLU Normal 74-[address] [facility] Comment on above: Result Comment: Canc elled via OM: Order cancelled - Patient discharged Performed By: #### L 100.0100, L500.2500 ####[facility] [address] [place], [address] Potassium Normal 3.5-5.[address] [facility] Comment on above: Result Comment: Canc elled via OM: Order cancelled - Patient discharged Performed By: #### L 100.0100, L500.2500 ####[facility] [address] [place], [address] Basic Metabolic Profile (BMP) Normal 136-[address] [facility] Comment on above: Result Comment: Canc elled via OM: Order cancelled - Patient discharged Performed By: #### L 100.0100, L500.2500 ####[facility] [address] [place], [address] CBC W/Diff, Automatedon 03-24 PATH REV Reviewed Normal [facility] Comment on above: Result Comment: TRI RE Macrocytic anemia.Clinical correlation necessary.Derik Alcala M.D. 04/11/24E AMENDED REPORT 04/11/24 1558 PATH REV previously reported as: Reviewed Performed By: #### L 100.0100, L500.2500 ####[facility] [address] [place], [address] Absolute Neut Normal 2.0-7.[address] [facility] Comment on above: Result Comment: Canc elled via OM: Order cancelled - Patient discharged Performed By: #### L 100.0100, L500.2500 ####[facility] [address] [place], [address] HCT Normal 40-[address] [facility] Comment on above: Result Comment: Canc elled via OM: Order cancelled - Patient discharged Performed By: #### L 100.0100, L500.2500 ####[facility] [address] [place], [address] HGB Normal 13.0-16.[address] [facility] Comment on above: Result Comment: Canc elled via OM: Order cancelled - Patient discharged Performed By: #### L 100.0100, L500.2500 ####[facility] [address] [place], [address] MCH Normal 27.0-32.[address] [facility] Comment on above: Result Comment: Canc elled via OM: Order cancelled - Patient discharged Performed By: #### L 100.0100, L500.2500 ####[facility] [address] [place], [address] MCHC Normal 32-[address] [facility] Comment on above: Result Comment: Canc elled via OM: Order cancelled - Patient discharged Performed By: #### L 100.0100, L500.2500 ####[facility] [address], [address] MCV Normal 80-[address] [facility] Comment on above: Result Comment: Canc elled via OM: Order cancelled - Patient discharged Performed By: #### L 100.0100, L500.2500 ####[facility] [address] [place], [address] NEUT% Normal 47-[address] [facility] Comment on above: Result Comment: Canc elled via OM: Order cancelled - Patient discharged Performed By: #### L 100.0100, L500.2500 ####[facility] [address] [place], [address] PLT Normal 150-[address] [facility] Comment on above: Result Comment: Canc elled via OM: Order cancelled - Patient discharged Performed By: #### L 100.0100, L500.2500 ####[facility] [address] [place], [address] RBC Normal 4.6-6.[address] [facility] Comment on above: Result Comment: Canc elled via OM: Order cancelled - Patient discharged Performed By: #### L 100.0100, L500.2500 ####[facility] [address] [place], [address] RDW CV Normal 11.6-14.[address] [facility] Comment on above: Result Comment: Canc elled via OM: Order cancelled - Patient discharged Performed By: #### L 100.0100, L500.2500 ####[facility] [address] [place], [address] RDW SD Normal 35.1-43.[address] [facility] Comment on above: Result Comment: Canc elled via OM: Order cancelled - Patient discharged Performed By: #### L 100.0100, L500.2500 ####[facility] [address] [place], [address] WBC Normal 4.4-11.[address] [facility] Comment on above: Result Comment: Canc elled via OM: Order cancelled - Patient discharged Performed By: #### L 100.0100, L500.2500 ####[facility] [address] [place], [address] Absolute neutrophil countOrd ered By: Binu Brannon on 04-10-2024 Neutrophils (Bld) [#/Vol] 5.8 10*3/uL 2.0-7.[address] [facility] Basic Metabolic Profile (BMP )on 04-10-2024 BUN/CRE 26.8 RATIO High 10-[address] [facility] Comment on above: Performed By: #### L 100.0100, L500.2500 ####[facility] [address] [place], [address] CA,Total 8.3 mg/dL Low 8.5-10.[address] [facility] Comment on above: Performed By: #### L 100.0100, L500.2500 ####[facility] [address] [place], [address] Chloride [Moles/Vol] 112 mmol/L High 98-107 [facility] Comment on above: Performed By: #### L 100.0100, L500.2500 ####[facility] [address] [place], [address] CO2 [Moles/Vol] 17.0 mmol/L Low 21.0-32.[address] [facility] Comment on above: Performed By: #### L 100.0100, L500.2500 ####[facility] [address] [place], [address] Creatinine [Mass/Vol] 2.76 mg/dL High 0.70-1.30 [facility] Comment on above: Result Comment: The validity of the calculated GFR GFRAA in patients over70 years has not been determined. Clinical correlation isessential. Performed By: #### L 100.0100, L500.2500 ####[facility] [address] [place], [address] ECRCL 31.45 ml/min Normal [facility] Comment on above: Performed By: #### L 100.0100, L500.2500 ####[facility] [address] [place], [address] EST GFR - AA 30 mL/min Low >[address] [facility] Comment on above: Result Comment: Afri can [place] GFR Calc Performed By: #### L 100.0100, L500.2500 ####[facility] [address] [place], [address] GAP 6 Normal 5-[address] [facility] Comment on above: Performed By: #### L 100.0100, L500.2500 ####[facility] [address] [place], [address] GFR/1.73 sq M.predicted among non-blacks MDRD (S/P/Bld) [Vol rate/Area] 25 mL/min/{1.73_m2} Low >[address] [facility] Comment on above: Result Comment: Non- GFR Calc Performed By: #### L 100.0100, L500.2500 ####[facility] [address] [place], [address] Glucose [Mass/Vol] 101 mg/dL Normal 74-106 [facility] Comment on above: Result Comment: Fast ing Glucose result from 100 to 125 mg/dLsuggests IMPAIRED HOMEOSTASIS per A.D.A. criteria. Performed By: #### L 100.0100, L500.2500 ####[facility] [address] [place], [address] Potassium [Moles/Vol] 5.3 mmol/L High 3.5-5.1 [facility] Comment on above: Performed By: #### L 100.0100, L500.2500 ####[facility] [address] [place], [address] Sodium [Moles/Vol] 135 mmol/L Low 136-145 [facility] Comment on above: Performed By: #### L 100.0100, L500.2500 ####[facility] [address] [place], [address] Urea nitrogen [Mass/Vol] 74 mg/dL High 7-[address] [facility] Comment on above: Performed By: #### L 100.0100, L500.2500 ####[facility] [address] [place], [address] Basophil percentageOrdered B y: Binu Brannon on 04-10-2024 Basophils/100 WBC (Bld) 0.3 % 0-[address] [facility] Blood urea nitrogen (BUN)/cr eatinine ratioOrdered By: Binu Brannon on 04-10-2024 Urea nitrogen/Creatinine [Mass ratio] 26.8 mg/mg High 10-[address] [facility] CBC W/Diff, Automatedon - Anisocytosis Ql (Bld) 1+ Normal [facility] Comment on above: Performed By: #### L 100.0100, L500.2500 ####[facility] [address] [place], [address] Carbon dioxide measurementOr dered By: Binu Brannon on 04-10-2024 CO2 [Moles/Vol] 17.0 mmol/L Low 21.0-32.[address] [facility] Chloride measurementOrdered By: Binu Brannon on 04-10-2024 Chloride [Moles/Vol] 112 mmol/L High 98-107 [facility] Eosinophil percentageOrdered By: Binu Brannon on 04-10-2024 Eosinophils/100 WBC (Bld) 1.4 % 0-[address] [facility] Erythrocyte distribution wid th ratioOrdered By: Binu Brannon on 04-10-2024 Erythrocyte distribution width (RBC) [Ratio] 20.1 % High 11.6-14.[address] [facility] Erythrocyte distribution wid th standard deviationOrdered By: Binu Brannon on 04-10-2024 Erythrocyte distribution width (RBC) [Entitic vol] 67.4 fL High 35.1-43.[address] [facility] Estimated glomerular filtrat ion rate (GFR) AmericanOrdered By: Binu Brannon on 04-10-2024 Estimated GFR (MDRD) Amer 30 mL/min Low >[address] [facility] Comment on above: GFR Calc Estimation of creatinine chiara aranceOrdered By: Binu Brannon on 04-10-2024 Estimated Creatinine Clearance Calc 31.45 ml/min [facility] Glomerular filtration rate ( GFR) estimationOrdered By: Binu Brannon on 04-10-2024 Estimated GFR (MDRD) Non-Af Amer 25 mL/min Low >[address] [facility] Comment on above: Non- GFR Calc Glucose measurementOrdered B y: Binu Brannon on 04-10-2024 Glucose [Mass/Vol] 101 mg/dL 74-106 [facility] Comment on above: Fasting Glucose resu lt from 100 to 125 mg/dL suggests IMPAIRED HOMEOSTASIS per A.D.A. criteria. Hematocrit Auto (Bld) [Volum e fraction]Ordered By: Binu Brannon on 04-10-2024 Hematocrit (Bld) [Volume fraction] 28.6 % Low 40-[address] [facility] Hemoglobin measurementOrdere d By: Binu Brannon on 04-10-2024 Hemoglobin (Bld) [Mass/Vol] 8.3 g/dL Low 13.0-16.[address] [facility] Immature granulocytes/100 WB C Auto (Bld)Ordered By: Binu Brannon on 04-10-2024 Immature granulocytes/100 WBC (Bld) 0.400 % 0.0-0.[address] [facility] Comment on above: IG% - Immature Granu locytes (promyelocytes, myelocytes and metamyelocytes) > 1% indicates that a LEFT SHIFT is Present. Laboratory - Hematology and Cell countsOrdered By: Binu Brannon on 04-10-2024 Anisocytosis Ql (Bld) 1+ [facility] Lymphocytes Auto (Unsp spec) [#/Vol]Ordered By: Binu Brannon on 04-10-2024 Lymphocytes (Bld) [#/Vol] 0.69 10*3/uL Low 0.83-4.[address] [facility] Lymphocytes/100 WBC Auto (Un sp spec)Ordered By: Binu Brannon on 04-10-2024 Lymphocytes/100 WBC (Bld) 9.6 % Low 19-[address] [facility] MCV (mean corpuscular volume ) determinationOrdered By: Binu Brannon on 04-10-2024 MCV (RBC) [Entitic vol] 92.0 fL 80-[address] [facility] Mean corpuscular hemoglobin (MCH) determinationOrdered By: Binu Brannon on 04-10-2024 MCH (RBC) [Entitic mass] 26.7 pg Low 27.0-32.[address] [facility] Mean corpuscular hemoglobin concentration (MCHC) determinationOrdered By: Binu Brannon on 04-10-2024 MCHC (RBC) [Mass/Vol] 29.0 g/dL Low 32-36 [facility] Mean platelet volume determi nationOrdered By: Binu Brannon on 04-10-2024 Platelet mean volume (Bld) [Entitic vol] 9.2 fL 6.2-12.[address] [facility] Monocyte percentageOrdered B y: Binu Brannno on 04-10-2024 Monocytes/100 WBC (Bld) 8.1 % 0-[address] [facility] Neutrophil percentageOrdered By: Binu Brannon on 04-10-2024 Neutrophils/100 WBC (Bld) 80.2 % High 47-[address] [facility] Nucleated red blood cell per centageOrdered By: Binu Brannon on 04-10-2024 Nucleated RBC/100 WBC (Bld) [Ratio] 0.3 % 0-[address] [facility] Platelet countOrdered By: Osiris Brannon on 04-10-2024 Platelets (Bld) [#/Vol] 166 10*3/uL 150-[address] [facility] Potassium measurementOrdered By: Binu Brannon on 04-10-2024 Potassium [Moles/Vol] 5.3 mmol/L High 3.5-5.1 [facility] RBC Auto (Bld) [#/Vol]Ordere d By: Binu Brannon on 04-10-2024 RBC (Bld) [#/Vol] 3.11 10*6/uL Low 4.6-6.2 [facility] Serum anion gap measurementO rdered By: Binu Brannon on 04-10-2024 Anion gap [Moles/Vol] 6 mmol/L 5-15 [facility] Serum or plasma calcium lorena urement (mass/volume)Ordered By: Binu Brannon on 04-10-2024 Calcium [Mass/Vol] 8.3 mg/dL Low 8.5-10.1 [facility] Serum or plasma creatinine m easurement (mass/volume)Ordered By: Binu Brannon on 04-10-2024 Creatinine [Mass/Vol] 2.76 mg/dL High 0.70-1.30 [facility] Comment on above: The validity of the calculated GFR & GFRAA in patients over 70 years has not been determined. Clinical correlation is essential. Serum or plasma urea nitroge n measurement (mass/volume)Ordered By: Binu Brannon on 04-10-2024 Urea nitrogen [Mass/Vol] 74 mg/dL High -[address] [facility] Sodium levelOrdered By: Binu Brannon on 04-10-2024 Sodium [Moles/Vol] 135 mmol/L Low 136-145 [facility] White blood cell (WBC) count Ordered By: Binu Brannon on 04-10-2024 WBC (Bld) [#/Vol] 7.2 10*3/uL 4.4-11.0 [facility] Basic Metabolic Profile (BMP )on 04-09-2024 BUN/CRE 26.1 RATIO High 10-[address] [facility] Comment on above: Performed By: #### L 500.2500, L100.0100 ####[facility] [address] [place], [address] CA,Total 8.4 mg/dL Low 8.5-10.[address] [facility] Comment on above: Performed By: #### L 500.2500, L100.0100 ####[facility] [address] [place], [address] Chloride [Moles/Vol] 114 mmol/L High 98-107 [facility] Comment on above: Performed By: #### L 500.2500, L100.0100 ####[facility] [address] [place], [address] CO2 [Moles/Vol] 18.0 mmol/L Low 21.0-32.[address] [facility] Comment on above: Performed By: #### L 500.2500, L100.0100 ####[facility] [address] [place], [address] Creatinine [Mass/Vol] 2.83 mg/dL High 0.70-1.30 [facility] Comment on above: Result Comment: The validity of the calculated GFR GFRAA in patients over70 years has not been determined. Clinical correlation isessential. Performed By: #### L 500.2500, L100.0100 ####[facility] [address] [place], [address] ECRCL 30.67 ml/min Normal [facility] Comment on above: Performed By: #### L 500.2500, L100.0100 ####[facility] [address] [place], [address] EST GFR - AA 29 mL/min Low >[address] [facility] Comment on above: Result Comment: Afri can [place] GFR Calc Performed By: #### L 500.2500, L100.0100 ####[facility] [address] [place], [address] GAP 5 Normal 5-[address] [facility] Comment on above: Performed By: #### L 500.2500, L100.0100 ####[facility] [address] [place], [address] GFR/1.73 sq M.predicted among non-blacks MDRD (S/P/Bld) [Vol rate/Area] 24 mL/min/{1.73_m2} Low >[address] [facility] Comment on above: Result Comment: Non- GFR Calc Performed By: #### L 500.2500, L100.0100 ####[facility] [address] [place], [address] Glucose [Mass/Vol] 85 mg/dL Normal 74-106 [facility] Comment on above: Performed By: #### L 500.2500, L100.0100 ####[facility] [address] [place], [address] Potassium [Moles/Vol] 5.5 mmol/L High 3.5-5.1 [facility] Comment on above: Performed By: #### L 500.2500, L100.0100 ####[facility] [address] [place], [address] Sodium [Moles/Vol] 137 mmol/L Normal 136-145 [facility] Comment on above: Performed By: #### L 500.2500, L100.0100 ####[facility] [address] [place], [address] Urea nitrogen [Mass/Vol] 74 mg/dL High 7-[address] [facility] Comment on above: Performed By: #### L 500.2500, L100.0100 ####[facility] [address] [place], [address] CBC W/Diff, Automatedon 03-23 Anisocytosis Ql (Bld) 1+ Normal [facility] Comment on above: Performed By: #### L 500.2500, L100.0100 ####[facility] [address] [place], [address] HH, Hemoglobin AND Hematocri ton 04-09-2024 Hematocrit (Bld) [Volume fraction] 30.0 % Low 40-[address] [facility] Comment on above: Performed By: #### L 100.0600 ####[facility] [address] [place], [address] Hemoglobin (Bld) [Mass/Vol] 8.8 g/dL Low 13.0-16.[address] [facility] Comment on above: Performed By: #### L 100.0600 ####[facility] [address] [place], [address] MR/[id number] 04-09-2024 MR/POSTOPAN2 Normal [facility] BRCon 04-08-[address] [facility] Comment on above: Result Comment: [id number] AP RC TRANSFUSED 04/08/24 [id number] AP RC TRANSFUSED 04/08/24 1817 Performed By: #### B RC ####[facility] [address] [place], [address] Result Comment: [id number] AP RC TRANSFUSED 04/08/24 [id number] AP RC TRANSFUSED 04/08/24 0955 Performed By: #### B FERNY, BTS ####[facility] [address] [place], [address] Basic Metabolic Profile (BMP )on 04-08-2024 BUN/CRE 26.1 RATIO High 10-[address] [facility] Comment on above: Performed By: #### L 100.0100, L500.2500 ####[facility] [address] [place], [address] CA,Total 8.1 mg/dL Low 8.5-10.[address] [facility] Comment on above: Performed By: #### L 100.0100, L500.2500 ####[facility] [address] [place], [address] Chloride [Moles/Vol] 109 mmol/L High 98-107 [facility] Comment on above: Performed By: #### L 100.0100, L500.2500 ####[facility] [address] [place], [address] CO2 [Moles/Vol] 17.0 mmol/L Low 21.0-32.[address] [facility] Comment on above: Performed By: #### L 100.0100, L500.2500 ####[facility] [address] [place], [address] Creatinine [Mass/Vol] 3.14 mg/dL High 0.70-1.30 [facility] Comment on above: Result Comment: The validity of the calculated GFR GFRAA in patients over70 years has not been determined. Clinical correlation isessential. Performed By: #### L 100.0100, L500.2500 ####[facility] [address] [place], [address] ECRCL 27.64 ml/min Normal [facility] Comment on above: Performed By: #### L 100.0100, L500.2500 ####[facility] [address] [place], [address] EST GFR - AA 26 mL/min Low >[address] [facility] Comment on above: Result Comment: Afri can [place] GFR Calc Performed By: #### L 100.0100, L500.2500 ####[facility] [address] [place], [address] GAP 7 Normal 5-[address] [facility] Comment on above: Performed By: #### L 100.0100, L500.2500 ####[facility] [address] [place], [address] GFR/1.73 sq M.predicted among non-blacks MDRD (S/P/Bld) [Vol rate/Area] 21 mL/min/{1.73_m2} Low >[address] [facility] Comment on above: Result Comment: Non- GFR Calc Performed By: #### L 100.0100, L500.2500 ####[facility] [address] [place], [address] Glucose [Mass/Vol] 95 mg/dL Normal 74-106 [facility] Comment on above: Performed By: #### L 100.0100, L500.2500 ####[facility] [address] [place], [address] Potassium [Moles/Vol] 5.6 mmol/L High 3.5-5.1 [facility] Comment on above: Performed By: #### L 100.0100, L500.2500 ####[facility] [address] [place], [address] Sodium [Moles/Vol] 133 mmol/L Low 136-145 [facility] Comment on above: Performed By: #### L 100.0100, L500.2500 ####[facility] [address] [place], [address] Urea nitrogen [Mass/Vol] 82 mg/dL High 7-[address] [facility] Comment on above: Performed By: #### L 100.0100, L500.2500 ####[facility] [address] [place], [address] CBC-Complete Blood Cnt No Di ffon 04-08-2024 Erythrocyte distribution width (RBC) [Ratio] 18.0 % High 11.6-14.[address] [facility] Comment on above: Performed By: #### L 100.0500 ####[facility] [address] [place], [address] Hematocrit (Bld) [Volume fraction] 23.6 % Low 40-[address] [facility] Comment on above: Performed By: #### L 100.0500 ####[facility] [address] [place], [address] Hemoglobin (Bld) [Mass/Vol] 6.9 g/dL Low 13.0-16.[address] [facility] Comment on above: Performed By: #### L 100.0500 ####[facility] [address] [place], [address] MCH (RBC) [Entitic mass] 28.0 pg Normal 27.0-32.[address] [facility] Comment on above: Performed By: #### L 100.0500 ####[facility] [address] [place], [address] MCHC (RBC) [Mass/Vol] 29.2 g/dL Low 32-36 [facility] Comment on above: Performed By: #### L 100.0500 ####[facility] [address] [place], [address] MCV (RBC) [Entitic vol] 95.9 fL High 80-[address] [facility] Comment on above: Performed By: #### L 100.0500 ####[facility] [address] [place], [address] Platelet mean volume (Bld) [Entitic vol] 9.0 fL Normal 6.2-12.[address] [facility] Comment on above: Performed By: #### L 100.0500 ####[facility] [address] [place], [address] Platelets (Bld) [#/Vol] 159 10*3/uL Normal 150-[address] [facility] Comment on above: Performed By: #### L 100.0500 ####[facility] [address] [place], [address] RBC (Bld) [#/Vol] 2.46 10*6/uL Low 4.6-6.2 [facility] Comment on above: Performed By: #### L 100.0500 ####[facility] [address] [place], [address] RDW SD 61.4 fl High 35.1-43.[address] [facility] Comment on above: Performed By: #### L 100.0500 ####[facility] [address] [place], [address] WBC (Bld) [#/Vol] 7.9 10*3/uL Normal 4.4-11.0 [facility] Comment on above: Performed By: #### L 100.0500 ####[facility] [address] [place], [address] MR/POSTOP.ANEon 04-08-2024 MR/POSTOP.ANE Normal [facility] Operative Reporton Operative Report Normal [facility] Pathologist review Ron (Unsp spec) [Interp]Ordered By: Binu Brannon on 04-08-2024 Differential Pathologist's Review Reviewed [facility] Comment on above: SEVERE Macrocytic an emia.Clinical correlation necessary.Derik Alcala M.D. 04/11/24Previous reported result: Angelique rees Edited by: BING on 04/08/24:1415SEVERE Macrocytic anemia.Clinical correlation necessary.Derik Alcala M.D. 04/08/24 AMENDED REPORT 04/08/24 1415 PATH REV previously reported as: Angelique rees Previous reported result: Reviewed Edited by: BING on 04/11/24:1558E AMENDED REPORT 04/11/24 1558 PATH REV previously reported as: Reviewed Type AND Screenon 04-08-2024 ABO and Rh group Nom (Bld) Blood group A Rh(D) positive Normal [facility] Comment on above: Order Comment: CMV N EG? NNumber of units to transfuse: 2Reason for Ordering Blood: AcuteAre the blood/blood products to be transfused? YIs the patient having/had surgery? YWhen Lakia Performed By: #### B RC, BTS ####[facility] [address] [place], [address] [id number] (add)on 01-15-2025 [id number] (add) Normal [facility] Comment on above: Performed By: #### P [id number]. ####[facility] [address] [place], [address] Discharge Instructionon 03-23 Discharge Instruction Normal [facility] MR/POSTOP.ANEon 04-06-2024 MR/POSTOP.ANE Normal [facility] MR/[id number] 04-06-2024 MR/POSTOPAN2 Normal [facility] Operative Reporton Operative Report Normal [facility] Surgery Specimen Level Dayna 04-06-2024 Surgery Specimen Level IV Normal [facility] Comment on above: Performed By: #### P SUIV ####[facility] [address] [place], [address] Emergency Department Summary on 04-03-2024 Emergency Department Summary Normal [facility] MR/PAT.ANEon 2024 MR/PAT.ANE Normal [facility] 12 Lead EKGon 03-25-2024 12 Lead EKG Normal [facility] Basic Metabolic Profile (BMP )on 03-25-2024 BUN/CRE 28.1 RATIO High 10-[address] [facility] Comment on above: Performed By: #### L 501.9520, L300.3900, L500.2500, L300.4310, L100.0500 ####[facility] [address] [place], [address] CA,Total 8.9 mg/dL Normal 8.5-10.[address] [facility] Comment on above: Performed By: #### L 501.9520, L300.3900, L500.2500, L300.4310, L100.0500 ####[facility] [address] [place], [address] Chloride [Moles/Vol] 109 mmol/L High 98-107 [facility] Comment on above: Performed By: #### L 501.9520, L300.3900, L500.2500, L300.4310, L100.0500 ####[facility] [address] [place], [address] CO2 [Moles/Vol] 24.0 mmol/L Normal 21.0-32.[address] [facility] Comment on above: Performed By: #### L 501.9520, L300.3900, L500.2500, L300.4310, L100.0500 ####[facility] [address] [place], [address] Creatinine [Mass/Vol] 2.60 mg/dL High 0.70-1.30 [facility] Comment on above: Result Comment: The validity of the calculated GFR GFRAA in patients over70 years has not been determined. Clinical correlation isessential. Performed By: #### L 501.9520, L300.3900, L500.2500, L300.4310, L100.0500 ####[facility] [address] [place], [address] EST GFR - AA 32 mL/min Low >[address] [facility] Comment on above: Result Comment: Afri can [place] GFR Calc Performed By: #### L 501.9520, L300.3900, L500.2500, L300.4310, L100.0500 ####[facility] [address] [place], [address] GAP 5 Normal 5-[address] [facility] Comment on above: Performed By: #### L 501.9520, L300.3900, L500.2500, L300.4310, L100.0500 ####[facility] [address] [place], [address] GFR/1.73 sq M.predicted among non-blacks MDRD (S/P/Bld) [Vol rate/Area] 26 mL/min/{1.73_m2} Low >[address] [facility] Comment on above: Result Comment: Non- GFR Calc Performed By: #### L 501.9520, L300.3900, L500.2500, L300.4310, L100.0500 ####[facility] [address] [place], [address] Glucose [Mass/Vol] 113 mg/dL High 74-106 [facility] Comment on above: Result Comment: Fast ing Glucose result from 100 to 125 mg/dLsuggests IMPAIRED HOMEOSTASIS per A.D.A. criteria. Performed By: #### L 501.9520, L300.3900, L500.2500, L300.4310, L100.0500 ####[facility] [address] [place], [address] Potassium [Moles/Vol] 4.6 mmol/L Normal 3.5-5.1 [facility] Comment on above: Performed By: #### L 501.9520, L300.3900, L500.2500, L300.4310, L100.0500 ####[facility] [address] [place], [address] Sodium [Moles/Vol] 138 mmol/L Normal 136-145 [facility] Comment on above: Performed By: #### L 501.9520, L300.3900, L500.2500, L300.4310, L100.0500 ####[facility] [address] [place], [address] Urea nitrogen [Mass/Vol] 73 mg/dL High 7-[address] [facility] Comment on above: Performed By: #### L 501.9520, L300.3900, L500.2500, L300.4310, L100.0500 ####[facility] [address] [place], [address] CBC-Complete Blood Cnt No Di ffon 03-25-2024 Erythrocyte distribution width (RBC) [Ratio] 16.6 % High 11.6-14.[address] [facility] Comment on above: Performed By: #### L 501.9520, L300.3900, L500.2500, L300.4310, L100.0500 ####[facility] [address] [place], [address] Hematocrit (Bld) [Volume fraction] 26.2 % Low 40-[address] [facility] Comment on above: Performed By: #### L 501.9520, L300.3900, L500.2500, L300.4310, L100.0500 ####[facility] [address] [place], [address] Hemoglobin (Bld) [Mass/Vol] 7.2 g/dL Low 13.0-16.[address] [facility] Comment on above: Performed By: #### L 501.9520, L300.3900, L500.2500, L300.4310, L100.0500 ####[facility] [address] [place], [address] MCH (RBC) [Entitic mass] 27.1 pg Normal 27.0-32.[address] [facility] Comment on above: Performed By: #### L 501.9520, L300.3900, L500.2500, L300.4310, L100.0500 ####[facility] [address] [place], [address] MCHC (RBC) [Mass/Vol] 27.5 g/dL Low 32-36 [facility] Comment on above: Performed By: #### L 501.9520, L300.3900, L500.2500, L300.4310, L100.0500 ####[facility] [address] [place], [address] MCV (RBC) [Entitic vol] 98.5 fL High 80-[address] [facility] Comment on above: Performed By: #### L 501.9520, L300.3900, L500.2500, L300.4310, L100.0500 ####[facility] [address] [place], [address] Platelet mean volume (Bld) [Entitic vol] 8.9 fL Normal 6.2-12.[address] [facility] Comment on above: Performed By: #### L 501.9520, L300.3900, L500.2500, L300.4310, L100.0500 ####[facility] [address] [place], [address] Platelets (Bld) [#/Vol] 222 10*3/uL Normal 150-[address] [facility] Comment on above: Performed By: #### L 501.9520, L300.3900, L500.2500, L300.4310, L100.0500 ####[facility] [address] [place], [address] RBC (Bld) [#/Vol] 2.66 10*6/uL Low 4.6-6.2 [facility] Comment on above: Performed By: #### L 501.9520, L300.3900, L500.2500, L300.4310, L100.0500 ####[facility] [address] [place], [address] RDW SD 59.4 fl High 35.1-43.[address] [facility] Comment on above: Performed By: #### L 501.9520, L300.3900, L500.2500, L300.4310, L100.0500 ####[facility] [address] [place], [address] WBC (Bld) [#/Vol] 5.2 10*3/uL Normal 4.4-11.0 [facility] Comment on above: Performed By: #### L 501.9520, L300.3900, L500.2500, L300.4310, L100.0500 ####[facility] [address] [place], [address] International normalized rat io (INR) calculationOrdered By: Keith Valdes on 03-25-2024 INR Coag (Bld) [Relative time] 1.4 {INR} [facility] Partial Thromboplast Timeon 03-25-2024 aPTT Coag (Bld) [Time] 33.9 s Normal 24.1-36.2 [facility] Comment on above: Performed By: #### L 501.9520, L300.3900, L500.2500, L300.4310, L100.0500 ####[facility] [address] [place], [address] Prothrombin Time w/INRon INR Coag (PPP) [Relative time] 1.4 {INR} Normal [facility] Comment on above: Performed By: #### L 501.9520, L300.3900, L500.2500, L300.4310, L100.0500 ####[facility] [address] [place], [address] PT Coag (PPP) [Time] 17.8 s High 11.7-14.9 [facility] Comment on above: Performed By: #### L 501.9520, L300.3900, L500.2500, L300.4310, L100.0500 ####[facility] [address] [place], [address] Prothrombin timeOrdered By: Keith Valdes on 03-25-2024 PT Coag (PPP) [Time] 17.8 s High 11.7-14.9 [facility] TSH QnOrdered By: Keith orta on 03-25-2024 Thyroid Stimulating Hormone (TSH) 0.374 uIU/mL 0.358-3.[address] [facility] Thyroid Stim Hormone (TSH)on 03-25-2024 TSH 0.374 uIU/mL Normal 0.358-3.[address] [facility] Comment on above: Performed By: #### L 501.9520, L300.3900, L500.2500, L300.4310, L100.0500 ####[facility] [address] [place], [address] aPTT Coag (PPP) [Time]Ordere d By: Keith Valdes on 03-25-2024 aPTT Coag (Bld) [Time] 33.9 s 24.1-36.2 [facility] Gastroenterology Visit Repor ton 03-04-2024 Gastroenterology Visit Report Normal [facility] Anaerobic cultureOrdered By: Fatmata Cedillo on 07-03-2023 Bacteria identified Anaer cx Nom (Unsp spec) No growth in [address] [facility] Bacteria identified Cx Nom ( Wound)Ordered By: Fatmata Cedillo on 07-03-2023 Wound Culture Staphylococcus capitis [facility] Gram stain for investigation of transfusion reactionOrdered By: Fatmata Cedillo on 07-03-2023 Microscopic observation Gram stain Nom (Unsp spec) [facility] CBC W Auto Differential pane l (Bld)on 06-25-2023 Basophils (Bld) [#/Vol] 0.04 10*3/uL <0.11 k/uL [facility] Basophils/100 WBC (Bld) 1.0 % [facility] Differential cell count method Nom (Bld) Auto [facility] Eosinophils (Bld) [#/Vol] 0.08 10*3/uL <0.46 k/uL [facility] Eosinophils/100 WBC (Bld) 2.0 % [facility] Erythrocyte distribution width (RBC) [Ratio] 15.3 % High 11.5 - 15.0 % [facility] Hematocrit (Bld) [Volume fraction] 33.4 % Low 39.0 - 51.0 % [facility] Hemoglobin (Bld) [Mass/Vol] 10.2 g/dL Low 13.0 - 17.0 g/dL [facility] Immature granulocytes (Bld) [#/Vol] <0.10 k/uL [facility] Immature granulocytes/100 WBC (Bld) 0.2 % [facility] Lymphocytes (Bld) [#/Vol] 0.92 10*3/uL Low 1.00 - 4.00 k/uL [facility] Lymphocytes/100 WBC (Bld) 22.7 % [facility] MCH (RBC) [Entitic mass] 32.7 pg 26.0 - 34.0 pg [facility] MCHC (RBC) [Mass/Vol] 30.5 g/dL 30.5 - 36.0 g/dL [facility] MCV (RBC) [Entitic vol] 107.1 fL High 80.0 - 100.0 fL [facility] Monocytes (Bld) [#/Vol] 0.35 10*3/uL <0.87 k/uL [facility] Monocytes/100 WBC (Bld) 8.6 % [facility] Neutrophils (Bld) [#/Vol] 2.66 10*3/uL 1.45 - 7.50 k/uL [facility] Neutrophils/100 WBC (Bld) 65.5 % [facility] Nucleated RBC (Bld) [#/Vol] <0.01 k/uL [facility] Nucleated RBC/100 WBC (Bld) [Ratio] 0.0 /100 WBC [facility] Platelet mean volume (Bld) [Entitic vol] 9.3 fL 9.0 - 12.7 fL [facility] Platelets (Bld) [#/Vol] 123 10*3/uL Low 150 - 400 k/uL [facility] RBC (Bld) [#/Vol] 3.12 10*6/uL Low 4.20 - 6.0 0 m/uL [facility] WBC (Bld) [#/Vol] 4.06 10*3/uL 3.70 - 11. 00 k/uL [facility] FERRITIN Don 06-25-2023 Ferritin [Mass/Vol] 139.0 ng/mL 30.3 - 5 65.7 ng/mL [facility] FOLATE SERUMon 06-25-2023 Folate [Mass/Vol] 12.2 ng/mL >4.7 ng/mL [facility] HAPTOGLOBIN BLDon 06-25-2023 Haptoglobin [Mass/Vol] 122 mg/dL 31 - 238 mg/dL [facility] Iron and Iron binding capaci ty panelon 06-25-2023 Iron [Mass/Vol] 35 ug/dL Low 41 - 186 ug/dL [facility] Iron binding capacity [Mass/Vol] 290 ug/dL 232 - 386 ug/dL [facility] Iron/TIBC [Molar ratio] 12.1 % Low 15.0 - 57.0 % [facility] RETIC COUNTon 06-25-2023 Reticulocytes (Bld) [#/Vol] 0.22947 10*3/uL 0.018 - 0.100 M/uL [facility] Reticulocytes (Bld) [#/Vol]o n 06-25-2023 Reticulocytes/100 RBC (Bld) 1.4 % 0.4 - 2.0 % [facility] TSH BLDon 06-25-2023 TSH Qn 0.443 m[IU]/L 0.270 - 4.200 mIU/L [facility] VITAMIN B12 BLOODon 06-25-19 Cobalamin (Vitamin B12) [Mass/Vol] 545 pg/mL 232 - 1,245 pg/mL [facility] Basophil percentageOrdered B y: Al Ramirez on 05-22-2023 Basophil percentage 3.9 mg/dL 2.5-4.9 [facility] Chloride [Moles/Vol] 115 mmol/L 98-107 [facility] Glucose [Mass/Vol] 91 mg/dL 74-106 [facility] Hemoglobin (Bld) [Mass/Vol] 9.4 g/dL 13.0-16.[address] [facility] Potassium [Moles/Vol] 5.0 mmol/L 3.5-5.1 [facility] Sodium [Moles/Vol] 140 mmol/L 136-145 [facility] WBC (Bld) [#/Vol] 3.7 10*3/uL 4.4-11.0 [facility] Blood manual differential co mment interpretation (narrative result)Ordered By: Al Ramirez on 05-22-2023 Manual differential comment Ron (Bld) [Interp] SCANNED [facility] Comment on above: ANISOCYTOSIS 2+MACRO CYTOSIS 2+MICROCYTOSIS 1+ Determination of erythrocyte mean corpuscular volume (MCV)Ordered By: Al Ramirez on 05-22-2023 MCV (RBC) [Entitic vol] 115.8 fL 80-[address] [facility] Erythrocyte distribution wid th ratioOrdered By: Al Ramirez on 05-22-2023 Erythrocyte distribution width (RBC) [Ratio] 18.1 % 11.6-14.[address] [facility] Erythrocyte distribution wid th standard deviationOrdered By: Al Ramirez on 05-22-2023 Erythrocyte distribution width (RBC) [Entitic vol] 77.9 fL 35.1-43.[address] [facility] Hematocrit Auto (Bld) [Volum e fraction]Ordered By: Al Ramirez on 05-22-2023 Hematocrit (Bld) [Volume fraction] 33.0 % 40-[address] [facility] Laboratory - Chemistry and C hemistry - challengeOrdered By: Al Ramirez on 05-22-2023 CO2 [Moles/Vol] 24.0 mmol/L 21.0-32.[address] [facility] Urea nitrogen/Creatinine [Mass ratio] 23.7 mg/mg 10-[address] [facility] Laboratory - Hematology and Cell countsOrdered By: Al Ramirez on 05-22-2023 MCH (RBC) [Entitic mass] 33.0 pg 27.0-32.[address] [facility] MCHC (RBC) [Mass/Vol] 28.5 g/dL 32-36 [facility] Platelet mean volume (Bld) [Entitic vol] 10.1 fL 6.2-12.[address] [facility] Platelets (Bld) [#/Vol] 116 10*3/uL 150-[address] [facility] No Panel InformationOrdered By: Al Ramirez on 05-22-2023 Estimated GFR (MDRD) Amer 34 mL/min >[address] [facility] Comment on above: GFR Calc Estimated GFR (MDRD) Non-Af Amer 28 mL/min >[address] [facility] Comment on above: Non- GFR Calc RBC Auto (Bld) [#/Vol]Ordere d By: Al Ramirez on 05-22-2023 RBC (Bld) [#/Vol] 2.85 10*6/uL 4.6-6.2 [facility] Serum or plasma calcium lorena urement (mass/volume)Ordered By: Al Ramirez on 05-22-2023 Calcium [Mass/Vol] 8.3 mg/dL 8.5-10.1 [facility] Serum or plasma creatinine m easurement (mass/volume)Ordered By: Al Ramirez on 05-22-2023 Creatinine [Mass/Vol] 2.45 mg/dL 0.70-1.30 [facility] Comment on above: The validity of the calculated GFR & GFRAA in patients over 70 years has not been determined. Clinical correlation is essential. Serum or plasma urea nitroge n measurement (mass/volume)Ordered By: Al Ramirez on 05-22-2023 Urea nitrogen [Mass/Vol] 58 mg/dL 7-[address] [facility] Thin prep Papanicolaou smear with manual screeningOrdered By: Al Ramirez on 05-22-2023 Protein (U) [Mass/Vol] 28.4 mg/dL 0.0-11.8 [facility] Thin prep Papanicolaou smear with manual screening 3.0 g/dL 3.2-5.[address] [facility] Urine creatinine measurement (mass/volume)Ordered By: Al Ramirez on 05-22-2023 Creatinine (U) [Mass/Vol] 28.80 mg/dL NO RANGE EST. [facility] Urine protein/creatinine mas s ratioOrdered By: Al Ramirez on 05-22-2023 Protein/Creatinine (U) [Mass ratio] 986 mg/g CRE 0-[address] [facility] Absolute lymphocyte countOrd ered By: Gracy Shin on 05-06-2023 Lymphocytes Auto (Unsp spec) [#/Vol] 0.84 10*3/uL 0.83-4.[address] [facility] Automated lymphocyte count a s percentage of total leukocytesOrdered By: Gracy Shin on 05-06-2023 Lymphocytes/100 WBC Auto (Unsp spec) 22.8 % 19-[address] [facility] Basophil percentageOrdered B y: Gracy Shin on 05-06-2023 Basophils/100 WBC (Bld) 1.1 % 0-[address] [facility] Bilirubin [Mass/Vol] 0.50 mg/dL 0.20-1.00 [facility] Comment on above: For patients on eltr ombopag therapy, use of Dimension Piru TBIL is not recommended. Chloride [Moles/Vol] 117 mmol/L 98-107 [facility] Eosinophils/100 WBC (Bld) 1.6 % 0-[address] [facility] Glucose [Mass/Vol] 87 mg/dL 74-106 [facility] Hemoglobin (Bld) [Mass/Vol] 9.5 g/dL 13.0-16.[address] [facility] Monocytes/100 WBC (Bld) 9.2 % 0-[address] [facility] Neutrophils (Bld) [#/Vol] 2.4 10*3/uL 2.0-7.[address] [facility] Neutrophils/100 WBC (Bld) 64.2 % 47-[address] [facility] Potassium [Moles/Vol] 4.9 mmol/L 3.5-5.1 [facility] Protein [Mass/Vol] 7.4 g/dL 6.4-8.2 [facility] Sodium [Moles/Vol] 144 mmol/L 136-145 [facility] WBC (Bld) [#/Vol] 3.7 10*3/uL 4.4-11.0 [facility] Determination of erythrocyte mean corpuscular volume (MCV)Ordered By: Gracy Shin on 05-06-2023 MCV (RBC) [Entitic vol] 116.7 fL 80-[address] [facility] Erythrocyte distribution wid th ratioOrdered By: Grcay Shin on 05-06-2023 Erythrocyte distribution width (RBC) [Ratio] 19.1 % 11.6-14.[address] [facility] Erythrocyte distribution wid th standard deviationOrdered By: Gracy Shin on 05-06-2023 Erythrocyte distribution width (RBC) [Entitic vol] 83.2 fL 35.1-43.[address] [facility] Hematocrit Auto (Bld) [Volum e fraction]Ordered By: Gracy Shin on 05-06-2023 Hematocrit (Bld) [Volume fraction] 32.8 % 40-[address] [facility] Immature granulocytes/100 WB C Auto (Bld)Ordered By: Gracy Shin on 05-06-2023 Immature granulocytes/100 WBC (Bld) 1.100 % 0.0-0.[address] [facility] Comment on above: IG% - Immature Granu locytes (promyelocytes, myelocytes and metamyelocytes) > 1% indicates that a LEFT SHIFT is Present. Laboratory - Chemistry and C hemistry - challengeOrdered By: Gracy Shin on 05-06-2023 Albumin/Globulin [Mass ratio] 0.7 {ratio} 0.9-2.[address] [facility] ALP [Catalytic activity/Vol] 157 U/L 45-[address] [facility] ALT [Catalytic activity/Vol] 31 U/L 16-[address] [facility] CO2 [Moles/Vol] 21.0 mmol/L 21.0-32.[address] [facility] Ferritin [Mass/Vol] 182 ng/mL 26-388 [facility] Globulin (S) [Mass/Vol] 4.3 g/dL 2.2-4.[address] [facility] Natriuretic peptide B (Bld) [Mass/Vol] 320.0 pg/mL 0-[address] [facility] Urea nitrogen/Creatinine [Mass ratio] 23.9 mg/mg 10-[address] [facility] Laboratory - Hematology and Cell countsOrdered By: Gracy Shin on 05-06-2023 Anisocytosis Ql (Bld) 1+ [facility] MCH (RBC) [Entitic mass] 33.8 pg 27.0-32.[address] [facility] MCHC (RBC) [Mass/Vol] 29.0 g/dL 32-36 [facility] Nucleated RBC/100 WBC (Bld) [Ratio] 0 % 0-[address] [facility] Platelet mean volume (Bld) [Entitic vol] 9.8 fL 6.2-12.[address] [facility] Platelets (Bld) [#/Vol] 126 10*3/uL 150-[address] [facility] No Panel InformationOrdered By: Gracy Shin on 05-06-2023 Estimated GFR (MDRD) Amer 33 mL/min >[address] [facility] Comment on above: GFR Calc Estimated GFR (MDRD) Non-Af Amer 27 mL/min >[address] [facility] Comment on above: Non- GFR Calc RBC Auto (Bld) [#/Vol]Ordere d By: Gracy Shin on 05-06-2023 RBC (Bld) [#/Vol] 2.81 10*6/uL 4.6-6.2 [facility] Serum or plasma calcium lorena urement (mass/volume)Ordered By: Gracy Shin on 05-06-2023 Calcium [Mass/Vol] 8.3 mg/dL 8.5-10.1 [facility] Serum or plasma creatinine m easurement (mass/volume)Ordered By: Gracy Shin on 05-06-2023 Creatinine [Mass/Vol] 2.51 mg/dL 0.70-1.30 [facility] Comment on above: The validity of the calculated GFR & GFRAA in patients over 70 years has not been determined. Clinical correlation is essential. Serum or plasma urea nitroge n measurement (mass/volume)Ordered By: Gracy Shin on 05-06-2023 Urea nitrogen [Mass/Vol] 60 mg/dL 7-[address] [facility] Thin prep Papanicolaou smear with manual screeningOrdered By: Gracy Shin on 05-06-2023 Thin prep Papanicolaou smear with manual screening 3.1 g/dL 3.2-5.0 [facility] [facility] Thin prep Papanicolaou smear with manual screening 27 U/L 15-[address] [facility] Thin prep Papanicolaou smear with manual screening 6 5-[address] [facility] Absolute lymphocyte countOrd ered By: Ambrocio Earl on 04-24-2023 Lymphocytes Auto (Unsp spec) [#/Vol] 0.77 10*3/uL 0.83-4.[address] [facility] Automated lymphocyte count a s percentage of total leukocytesOrdered By: Ambrocio Earl on 04-24-2023 Lymphocytes/100 WBC Auto (Unsp spec) 17.2 % 19-[address] [facility] Basophil percentageOrdered B y: Ambrocio Earl on 04-24-2023 Basophils/100 WBC (Bld) 1.1 % 0-[address] [facility] Chloride [Moles/Vol] 114 mmol/L 98-107 [facility] Eosinophils/100 WBC (Bld) 1.8 % 0-[address] [facility] Glucose [Mass/Vol] 87 mg/dL 74-106 [facility] Hemoglobin (Bld) [Mass/Vol] 9.1 g/dL 13.0-16.[address] [facility] Monocytes/100 WBC (Bld) 7.2 % 0-[address] [facility] Neutrophils (Bld) [#/Vol] 3.2 10*3/uL 2.0-7.[address] [facility] Neutrophils/100 WBC (Bld) 71.6 % 47-[address] [facility] Potassium [Moles/Vol] 5.5 mmol/L 3.5-5.1 [facility] Sodium [Moles/Vol] 137 mmol/L 136-145 [facility] WBC (Bld) [#/Vol] 4.5 10*3/uL 4.4-11.0 [facility] Determination of erythrocyte mean corpuscular volume (MCV)Ordered By: Ambrocio Earl on 04-24-2023 MCV (RBC) [Entitic vol] 113.1 fL 80-[address] [facility] Erythrocyte distribution wid th ratioOrdered By: Ambrocio Earl on 04-24-2023 Erythrocyte distribution width (RBC) [Ratio] 18.5 % 11.6-14.[address] [facility] Erythrocyte distribution wid th standard deviationOrdered By: Ambrocio Earl on 04-24-2023 Erythrocyte distribution width (RBC) [Entitic vol] 76.9 fL 35.1-43.[address] [facility] Hematocrit Auto (Bld) [Volum e fraction]Ordered By: Ambrocio Earl on 04-24-2023 Hematocrit (Bld) [Volume fraction] 31.9 % 40-[address] [facility] Immature granulocytes/100 WB C Auto (Bld)Ordered By: Ambrocio Earl on 04-24-2023 Immature granulocytes/100 WBC (Bld) 1.100 % 0.0-0.[address] [facility] Comment on above: IG% - Immature Granu locytes (promyelocytes, myelocytes and metamyelocytes) > 1% indicates that a LEFT SHIFT is Present. International normalized rat io (INR) calculationOrdered By: Ambrocio Earl on 04-24-2023 INR Coag (PPP) [Relative time] 1.4 {INR} [facility] Laboratory - Chemistry and C hemistry - challengeOrdered By: Ambrocio Earl on 04-24-2023 CO2 [Moles/Vol] 25.0 mmol/L 21.0-32.[address] [facility] Natriuretic peptide B (Bld) [Mass/Vol] 285.9 pg/mL 0-[address] [facility] Urea nitrogen/Creatinine [Mass ratio] 20.6 mg/mg 10-[address] [facility] Laboratory - CoagulationOrde red By: Ambrocio Earl on 04-24-2023 PT Coag (PPP) [Time] 16.9 s 11.7-14.9 [facility] Laboratory - Hematology and Cell countsOrdered By: Ambrocio Earl on 04-24-2023 Anisocytosis Ql (Bld) 1+ [facility] MCH (RBC) [Entitic mass] 32.3 pg 27.0-32.[address] [facility] MCHC (RBC) [Mass/Vol] 28.5 g/dL 32-36 [facility] Nucleated RBC/100 WBC (Bld) [Ratio] 0.7 % 0-[address] [facility] Platelets (Bld) [#/Vol] 155 10*3/uL 150-[address] [facility] No Panel InformationOrdered By: Ambrocio Earl on 04-24-2023 Estimated Creatinine Clearance Calc 40.37 ml/min [facility] Estimated GFR (MDRD) Amer 39 mL/min >[address] [facility] Comment on above: GFR Calc Estimated GFR (MDRD) Non-Af Amer 32 mL/min >[address] [facility] Comment on above: Non- GFR Calc Troponin I High Sensitivity 16 pg/mL 3.0-78.[address] [facility] Comment on above: Please Note: New Elisa t Units and Gender Specific Reference Ranges. For more information see Policy Stat Procedure Piru High Sensitivity Troponin (TNIH) and attachments. Platelet mean volume Jhonny-Ec ker (Bld) [Entitic vol]Ordered By: Ambrocio Earl on 04-24-2023 Platelet mean volume (Bld) [Entitic vol] 9.9 fL 6.2-12.[address] [facility] RBC Auto (Bld) [#/Vol]Ordere d By: Ambrocio Earl on 04-24-2023 RBC (Bld) [#/Vol] 2.82 10*6/uL 4.6-6.2 [facility] Serum or plasma calcium lorena urement (mass/volume)Ordered By: Ambrocio Earl on 04-24-2023 Calcium [Mass/Vol] 8.5 mg/dL 8.5-10.1 [facility] Serum or plasma creatinine m easurement (mass/volume)Ordered By: Ambrocio Earl on 04-24-2023 Creatinine [Mass/Vol] 2.18 mg/dL 0.70-1.30 [facility] Comment on above: The validity of the calculated GFR & GFRAA in patients over 70 years has not been determined. Clinical correlation is essential. Serum or plasma urea nitroge n measurement (mass/volume)Ordered By: Ambrocio Earl on 04-24-2023 Urea nitrogen [Mass/Vol] 45 mg/dL 7-[address] [facility] Thin prep Papanicolaou smear with manual screeningOrdered By: Ambrocio Earl on 04-24-2023 Thin prep Papanicolaou smear with manual screening -2 5-[address] [facility] Basophil percentageOrdered B y: Al Ramirez on 04-07-2023 Basophil percentage 3.6 mg/dL 2.5-4.9 [facility] Chloride [Moles/Vol] 116 mmol/L 98-107 [facility] Glucose [Mass/Vol] 69 mg/dL 74-106 [facility] Hemoglobin (Bld) [Mass/Vol] 9.5 g/dL 13.0-16.[address] [facility] Potassium [Moles/Vol] 5.2 mmol/L 3.5-5.1 [facility] Sodium [Moles/Vol] 143 mmol/L 136-145 [facility] WBC (Bld) [#/Vol] 4.3 10*3/uL 4.4-11.0 [facility] Blood manual differential co mment interpretation (narrative result)Ordered By: Al Ramirez on 04-07-2023 Manual differential comment Ron (Bld) [Interp] SCANNED [facility] Comment on above: 2+ ANISOCYTOSIS1+ PA CROCYTOSIS1+ MACROCYTOSIS Determination of erythrocyte mean corpuscular volume (MCV)Ordered By: Al Ramirez on 04-07-2023 MCV (RBC) [Entitic vol] 108.6 fL 80-[address] [facility] Erythrocyte distribution wid th ratioOrdered By: Al Ramirez on 04-07-2023 Erythrocyte distribution width (RBC) [Ratio] 16.6 % 11.6-14.[address] [facility] Erythrocyte distribution wid th standard deviationOrdered By: Al Ramirez on 04-07-2023 Erythrocyte distribution width (RBC) [Entitic vol] 65.6 fL 35.1-43.[address] [facility] Hematocrit Auto (Bld) [Volum e fraction]Ordered By: Al Ramirez on 04-07-2023 Hematocrit (Bld) [Volume fraction] 31.5 % 40-[address] [facility] Laboratory - Chemistry and C hemistry - challengeOrdered By: Al Ramirez on 04-07-2023 CO2 [Moles/Vol] 24.0 mmol/L 21.0-32.[address] [facility] Urea nitrogen/Creatinine [Mass ratio] 15.7 mg/mg 10-[address] [facility] Laboratory - Hematology and Cell countsOrdered By: Al Ramirez on 04-07-2023 MCH (RBC) [Entitic mass] 32.8 pg 27.0-32.[address] [facility] MCHC (RBC) [Mass/Vol] 30.2 g/dL 32-36 [facility] Platelets (Bld) [#/Vol] 152 10*3/uL 150-[address] [facility] No Panel InformationOrdered By: Al Ramirez on 04-07-2023 Estimated GFR (MDRD) Amer 47 mL/min >[address] [facility] Comment on above: GFR Calc Estimated GFR (MDRD) Non-Af Amer 39 mL/min >[address] [facility] Comment on above: Non- GFR Calc Platelet mean volume Jhonny-Ec ker (Bld) [Entitic vol]Ordered By: Al Ramirez on 04-07-2023 Platelet mean volume (Bld) [Entitic vol] 9.7 fL 6.2-12.[address] [facility] RBC Auto (Bld) [#/Vol]Ordere d By: Al Ramirez on 04-07-2023 RBC (Bld) [#/Vol] 2.90 10*6/uL 4.6-6.2 [facility] Serum or plasma calcium lorena urement (mass/volume)Ordered By: Al Ramirez on 04-07-2023 Calcium [Mass/Vol] 8.5 mg/dL 8.5-10.1 [facility] Serum or plasma creatinine m easurement (mass/volume)Ordered By: Al Ramirez on 04-07-2023 Creatinine [Mass/Vol] 1.85 mg/dL 0.70-1.30 [facility] Comment on above: The validity of the calculated GFR & GFRAA in patients over 70 years has not been determined. Clinical correlation is essential. Serum or plasma urea nitroge n measurement (mass/volume)Ordered By: Al Ramirez on 04-07-2023 Urea nitrogen [Mass/Vol] 29 mg/dL 7-[address] [facility] Thin prep Papanicolaou smear with manual screeningOrdered By: Al Ramirez on 04-07-2023 Protein (U) [Mass/Vol] 118.0 mg/dL 0.0-11.[address] [facility] Thin prep Papanicolaou smear with manual screening 2.7 g/dL 3.2-5.[address] [facility] Urine creatinine measurement (mass/volume)Ordered By: Al Ramirez on 04-07-2023 Creatinine (U) [Mass/Vol] 52.70 mg/dL NO RANGE EST. [facility] Urine protein/creatinine mas s ratioOrdered By: Al Ramirez on 04-07-2023 Protein/Creatinine (U) [Mass ratio] 2239 mg/g CRE 0-[address] [facility] Basophil percentageOrdered B y: Larry Dunbar on 04-03-2023 Chloride [Moles/Vol] 114 mmol/L 98-107 [facility] Glucose [Mass/Vol] 86 mg/dL 74-106 [facility] Potassium [Moles/Vol] 5.5 mmol/L 3.5-5.1 [facility] Sodium [Moles/Vol] 141 mmol/L 136-145 [facility] Laboratory - Chemistry and C hemistry - challengeOrdered By: Larry Dunbar on 04-03-2023 CO2 [Moles/Vol] 22.0 mmol/L 21.0-32.[address] [facility] Urea nitrogen/Creatinine [Mass ratio] 12.7 mg/mg 10-[address] [facility] No Panel InformationOrdered By: Larry Dunbar on 04-03-2023 Estimated Creatinine Clearance Calc 39.82 ml/min [facility] Estimated GFR (MDRD) Amer 38 mL/min >[address] [facility] Comment on above: GFR Calc Estimated GFR (MDRD) Non-Af Amer 32 mL/min >[address] [facility] Comment on above: Non- GFR Calc Serum or plasma calcium lorena urement (mass/volume)Ordered By: Larry Dunbar on 04-03-2023 Calcium [Mass/Vol] 8.7 mg/dL 8.5-10.1 [facility] Serum or plasma creatinine m easurement (mass/volume)Ordered By: Larry Dunbar on 04-03-2023 Creatinine [Mass/Vol] 2.21 mg/dL 0.70-1.30 [facility] Comment on above: The validity of the calculated GFR & GFRAA in patients over 70 years has not been determined. Clinical correlation is essential. Serum or plasma urea nitroge n measurement (mass/volume)Ordered By: Larry Dunbar on 04-03-2023 Urea nitrogen [Mass/Vol] 28 mg/dL 7-[address] [facility] Thin prep Papanicolaou smear with manual screeningOrdered By: Larry Dunbar on 04-03-2023 Thin prep Papanicolaou smear with manual screening 5 5-[address] [facility] Basophil percentageOrdered B y: Larry Dunbar on 04-02-2023 WBC (Bld) [#/Vol] 4.8 10*3/uL 4.4-11.0 [facility] Blood erythrocytes count (nu mber/volume)Ordered By: Larry Dunbar on 04-02-2023 RBC (Bld) [#/Vol] 2.89 10*6/uL 4.6-6.2 [facility] Blood hemoglobin measurement (mass/volume)Ordered By: Larry Dunbar on 04-02-2023 Hemoglobin (Bld) [Mass/Vol] 9.2 g/dL 13.0-16.[address] [facility] Blood manual differential co mment interpretation (narrative result)Ordered By: Larry Dunbar on 04-02-2023 Manual differential comment Ron (Bld) [Interp] SCANNED [facility] Comment on above: 2+ ANISOCYTOSIS1+ PA CROCYTOSIS1+ MACROCYTOSIS Blood platelet mean volumeOr dered By: Larry Dunbar on 04-02-2023 Platelet mean volume (Bld) [Entitic vol] 9.8 fL 6.2-12.[address] [facility] Determination of erythrocyte mean corpuscular volume (MCV)Ordered By: Larry Dunbar on 04-02-2023 MCV (RBC) [Entitic vol] 108.0 fL 80-94 [facility] Hematocrit Auto (Bld) [Volum e fraction]Ordered By: Larry Dunbar on 04-02-2023 Hematocrit (Bld) [Volume fraction] 31.2 % 40-[address] [facility] Laboratory - Hematology and Cell countsOrdered By: Larry Dunbar on 04-02-2023 Erythrocyte distribution width (RBC) [Entitic vol] 68.8 fL 35.1-43.[address] [facility] Erythrocyte distribution width (RBC) [Ratio] 17.5 % 11.6-14.[address] [facility] MCH (RBC) [Entitic mass] 31.8 pg 27.0-32.[address] [facility] MCHC Auto (RBC) [Mass/Vol]Or dered By: Larry Dunbar on 04-02-2023 MCHC (RBC) [Mass/Vol] 29.5 g/dL 32-36 [facility] Platelets bldOrdered By: Jennifer Dunbar on 04-02-2023 Platelets (Bld) [#/Vol] 146 10*3/uL 150-[address] [facility] Absolute lymphocyte countOrd ered By: Noemí Vela on 04-01-2023 Lymphocytes Auto (Unsp spec) [#/Vol] 1.20 10*3/uL 0.83-4.[address] [facility] Basophil percentageOrdered B y: Noemí Vela on 04-01-2023 Basophils/100 WBC (Bld) 0.7 % 0-[address] [facility] Bilirubin [Mass/Vol] 0.40 mg/dL 0.20-1.00 [facility] Comment on above: For patients on eltr ombopag therapy, use of Dimension Piru TBIL is not recommended. Eosinophils/100 WBC (Bld) 1.2 % 0-[address] [facility] Neutrophils (Bld) [#/Vol] 2.6 10*3/uL 2.0-7.[address] [facility] Neutrophils/100 WBC (Bld) 61.0 % 47-[address] [facility] Protein [Mass/Vol] 7.0 g/dL 6.4-8.2 [facility] Blood lymphocytes/100 leukoc ytesOrdered By: Noemí Dane on 04-01-2023 Lymphocytes/100 WBC (Bld) 28.2 % 19-[address] [facility] Blood monocytes/100 leukocyt esOrdered By: Dane on 04-01-2023 Monocytes/100 WBC (Bld) 8.7 % 0-[address] [facility] Glucose Glucometer (dC) [M ass/Vol]Ordered By: Noemí Dane on 04-01-2023 Glucose [Mass/Vol] 85 mg/dL 74-106 [facility] Comment on above: MANAGEMENT OF PATIEN T CARE PER NURSING PROTOCOL Gram stain for investigation of transfusion reactionOrdered By: Noemí Dane on 04-01-2023 Microscopic observation Gram stain Nom (Unsp spec) [facility] Microscopic observation Gram stain Nom (Unsp spec) [facility] Laboratory - Chemistry and C hemistry - challengeOrdered By: Noemí Dane on 04-01-2023 ALP [Catalytic activity/Vol] 178 U/L 45-[address] [facility] ALT [Catalytic activity/Vol] 13 U/L 16-[address] [facility] Globulin (S) [Mass/Vol] 4.2 g/dL 2.2-4.[address] [facility] Laboratory - Hematology and Cell countsOrdered By: Noemí Vela on 04-01-2023 Anisocytosis Ql (Bld) 2+ [facility] Immature granulocytes/100 WBC (Bld) 0.200 % 0.0-0.[address] [facility] Comment on above: IG% - Immature Granu locytes (promyelocytes, myelocytes and metamyelocytes) > 1% indicates that a LEFT SHIFT is Present. Nucleated RBC/100 WBC (Bld) [Ratio] 0 % 0-[address] [facility] Microbial respiratory cultur eOrdered By: Noemí Vela on 04-01-2023 Bacteria identified Respiratory culture Nom (Unsp spec) or Staphylococcus aureus isolated. [facility] Bacteria identified Respiratory culture Nom (Unsp spec) or Staphylococcus aureus isolated. [facility] Respiratory pathogens detect ion panel by molecular detection methodOrdered By: [facility] Dane on 04-01-2023 Respiratory pathogens DNA and RNA panel BENJAMIN+probe (Resp) [facility] Respiratory pathogens DNA and RNA panel BENJAMIN+probe (Resp) [facility] Serum or plasma albumin lorena urement (mass/volume)Ordered By: Noemí Dane on 04-01-2023 Albumin [Mass/Vol] 2.8 g/dL 3.2-5.0 [facility] Serum or plasma albumin/glob ulin mass ratioOrdered By: [facility] Dane on 04-01-2023 Albumin/Globulin [Mass ratio] 0.7 {ratio} 0.9-2.[address] [facility] Thin prep Papanicolaou smear with manual screeningOrdered By: [facility] Dane on 04-01-2023 Thin prep Papanicolaou smear with manual screening 17 U/L 15-[address] [facility] Absolute lymphocyte countOrd ered By: Johann Boss on 03-31-2023 Lymphocytes Auto (Unsp spec) [#/Vol] 0.89 10*3/uL 0.83-4.[address] [facility] Basophil percentageOrdered B y: Johann Boss on 03-31-2023 Basophils/100 WBC (Bld) 0.4 % 0-1 [facility] Chloride [Moles/Vol] 117 mmol/L 98-107 [facility] Eosinophils/100 WBC (Bld) 1.7 % 0-[address] [facility] Glucose [Mass/Vol] 84 mg/dL 74-106 [facility] Neutrophils (Bld) [#/Vol] 3.2 10*3/uL 2.0-7.[address] [facility] Neutrophils/100 WBC (Bld) 68.8 % 47-[address] [facility] Potassium [Moles/Vol] 6.9 mmol/L 3.5-5.1 [facility] Comment on above: Critical Result(s) C alled at: 14:09:45 03/31/2023 by: Bruno Hawkins RN (ER). Results read back by same. Sodium [Moles/Vol] 138 mmol/L 136-145 [facility] WBC (Bld) [#/Vol] 4.6 10*3/uL 4.4-11.0 [facility] Basophil percentageOrdered B y: Noemí Vela on 03-31-2023 Bilirubin [Mass/Vol] 0.40 mg/dL 0.20-1.00 [facility] Comment on above: For patients on eltr ombopag therapy, use of Dimension Piru TBIL is not recommended. Protein [Mass/Vol] 7.3 g/dL 6.4-8.2 [facility] Blood erythrocytes count (nu mber/volume)Ordered By: Johann Boss on 03-31-2023 RBC (Bld) [#/Vol] 2.81 10*6/uL 4.6-6.2 [facility] Blood hemoglobin measurement (mass/volume)Ordered By: Johann Boss on 03-31-2023 Hemoglobin (Bld) [Mass/Vol] 8.9 g/dL 13.0-16.[address] [facility] Blood lymphocytes/100 leukoc ytesOrdered By: Johann Boss on 03-31-2023 Lymphocytes/100 WBC (Bld) 19.2 % 19-[address] [facility] Blood manual differential co mment interpretation (narrative result)Ordered By: Johann Boss on 03-31-2023 Manual differential comment Ron (Bld) [Interp] SCANNED [facility] Blood monocytes/100 leukocyt esOrdered By: Johann Boss on 03-31-2023 Monocytes/100 WBC (Bld) 9.7 % 0-[address] [facility] Blood platelet mean volumeOr dered By: Johann Boss on 03-31-2023 Platelet mean volume (Bld) [Entitic vol] 9.5 fL 6.2-12.[address] [facility] Determination of erythrocyte mean corpuscular volume (MCV)Ordered By: Johann Boss on 03-31-2023 MCV (RBC) [Entitic vol] 109.6 fL 80-[address] [facility] Direct bilirubinOrdered By: Noemí Vela on 03-31-2023 Bilirubin.direct [Mass/Vol] 0.20 mg/dL 0.00-0.[address] [facility] Hematocrit Auto (Bld) [Volum e fraction]Ordered By: Johann Boss on 03-31-2023 Hematocrit (Bld) [Volume fraction] 30.8 % 40-[address] [facility] Laboratory - Chemistry and C hemistry - challengeOrdered By: Noemí Vela on 03-31-2023 ALP [Catalytic activity/Vol] 190 U/L 45-[address] [facility] ALT [Catalytic activity/Vol] 13 U/L 16-[address] [facility] Globulin (S) [Mass/Vol] 4.4 g/dL 2.2-4.[address] [facility] Magnesium [Mass/Vol] 2.5 mg/dL 1.6-2.6 [facility] Laboratory - Chemistry and C hemistry - challengeOrdered By: Johann Boss on 03-31-2023 CO2 [Moles/Vol] 20.0 mmol/L 21.0-32.[address] [facility] Natriuretic peptide B (Bld) [Mass/Vol] 459.6 pg/mL 0-[address] [facility] Urea nitrogen/Creatinine [Mass ratio] 15.2 mg/mg 10-[address] [facility] Laboratory - Hematology and Cell countsOrdered By: Johann Boss on 03-31-2023 Anisocytosis Ql (Bld) 2+ [facility] Erythrocyte distribution width (RBC) [Entitic vol] 67.3 fL 35.1-43.[address] [facility] Erythrocyte distribution width (RBC) [Ratio] 17.0 % 11.6-14.[address] [facility] Immature granulocytes/100 WBC (Bld) 0.200 % 0.0-0.[address] [facility] Comment on above: IG% - Immature Granu locytes (promyelocytes, myelocytes and metamyelocytes) > 1% indicates that a LEFT SHIFT is Present. MCH (RBC) [Entitic mass] 31.7 pg 27.0-32.[address] [facility] Nucleated RBC/100 WBC (Bld) [Ratio] 0 % 0-[address] [facility] Laboratory - Microbiology an d Antimicrobial susceptibilityOrdered By: Johann Boss on 03-31-2023 SARS-CoV-2 (COVID-19) RNA BENJAMIN+probe Ql (Unsp spec) [facility] Lower GI hemoglobin IA Ql (S tl)Ordered By: Noemí Vela on 03-31-2023 Stool Occult Blood (PAWAN) Positive [facility] Stool Occult Blood (PAWAN) Positive [facility] MCHC Auto (RBC) [Mass/Vol]Or dered By: Johann Boss on 03-31-2023 MCHC (RBC) [Mass/Vol] 28.9 g/dL 32-36 [facility] Macrocytes detectionOrdered By: Johann Boss on 03-31-2023 Macrocytes Ql (Bld) 1+ [facility] No Panel InformationOrdered By: Noemí Vela on 03-31-2023 Streptococcus pneumoniae Antigen (M [facility] Streptococcus pneumoniae Antigen (M [facility] No Panel InformationOrdered By: Johann Boss on 03-31-2023 Estimated Creatinine Clearance Calc 29.63 ml/min [facility] Estimated GFR (MDRD) Amer 27 mL/min >[address] [facility] Comment on above: GFR Calc Estimated GFR (MDRD) Non-Af Amer 23 mL/min >[address] [facility] Comment on above: Non- GFR Calc Platelets bldOrdered By: João Boss on 03-31-2023 Platelets (Bld) [#/Vol] 179 10*3/uL 150-[address] [facility] Serum or plasma albumin lorena urement (mass/volume)Ordered By: Noemí Vela on 03-31-2023 Albumin [Mass/Vol] 2.9 g/dL 3.2-5.0 [facility] Serum or plasma calcium lorena urement (mass/volume)Ordered By: Johann Boss on 03-31-2023 Calcium [Mass/Vol] 8.8 mg/dL 8.5-10.1 [facility] Serum or plasma creatinine m easurement (mass/volume)Ordered By: Johann Boss on 03-31-2023 Creatinine [Mass/Vol] 2.97 mg/dL 0.70-1.30 [facility] Comment on above: The validity of the calculated GFR & GFRAA in patients over 70 years has not been determined. Clinical correlation is essential. Serum or plasma urea nitroge n measurement (mass/volume)Ordered By: Johann Boss on 03-31-2023 Urea nitrogen [Mass/Vol] 45 mg/dL 7-[address] [facility] Thin prep Papanicolaou smear with manual screeningOrdered By: Johann Boss on 03-31-2023 Thin prep Papanicolaou smear with manual screening 1+ [facility] Thin prep Papanicolaou smear with manual screening 1 5-[address] [facility] Thin prep Papanicolaou smear with manual screeningOrdered By: Noemí Vela on 03-31-2023 Thin prep Papanicolaou smear with manual screening 17 U/L 15-[address] [facility] Urine Legionella pneumophila antigen detectionOrdered By: Noemí Vela on 03-31-2023 L. pneumophila Ag Ql (U) [facility] L. pneumophila Ag Ql (U) [facility] Bacteria identified Anaer cx Nom (Unsp spec)Ordered By: Tianna Zazueta on 03-26-2023 Anaerobic Culture Anaerobic cocci [facility] Anaerobic Culture Prevotella oralis [facility] Anaerobic Culture Anaerobic cocci [facility] Anaerobic Culture Prevotella oralis [facility] Gram stain for investigation of transfusion reactionOrdered By: Tianna Zazueta on 03-26-2023 Microscopic observation Gram stain Nom (Unsp spec) [facility] Microscopic observation Gram stain Nom (Unsp spec) [facility] Routine wound cultureOrdered By: Tianna Zazueta on 03-26-2023 Bacteria identified Cx Nom (Wound) No growth aerobically. [facility] Bacteria identified Cx Nom (Wound) No growth aerobically. [facility] Absolute lymphocyte countOrd ered By: Gracy Shin on 03-25-2023 Lymphocytes Auto (Unsp spec) [#/Vol] 0.79 10*3/uL 0.83-4.[address] [facility] Basophil percentageOrdered B y: Gracy Shin on 03-25-2023 Basophils/100 WBC (Bld) 0.5 % 0-[address] [facility] Eosinophils/100 WBC (Bld) 1.0 % 0-[address] [facility] Neutrophils (Bld) [#/Vol] 4.5 10*3/uL 2.0-7.[address] [facility] Neutrophils/100 WBC (Bld) 74.7 % 47-[address] [facility] WBC (Bld) [#/Vol] 6.0 10*3/uL 4.4-11.0 [facility] Blood erythrocytes count (nu mber/volume)Ordered By: Gracy Shin on 03-25-2023 RBC (Bld) [#/Vol] 2.98 10*6/uL 4.6-6.2 [facility] Blood hemoglobin measurement (mass/volume)Ordered By: Gracy Shin on 03-25-2023 Hemoglobin (Bld) [Mass/Vol] 9.5 g/dL 13.0-16.[address] [facility] Blood lymphocytes/100 leukoc ytesOrdered By: Gracy Shin on 03-25-2023 Lymphocytes/100 WBC (Bld) 13.2 % 19-[address] [facility] Blood manual differential co mment interpretation (narrative result)Ordered By: Gracy Shin on 03-25-2023 Manual differential comment Ron (Bld) [Interp] SCANNED [facility] Comment on above: 1+ ANISOCYTOSIS Blood monocytes/100 leukocyt esOrdered By: Gracy Shin on 03-25-2023 Monocytes/100 WBC (Bld) 10.3 % 0-[address] [facility] Blood platelet mean volumeOr dered By: Gracy Shin on 03-25-2023 Platelet mean volume (Bld) [Entitic vol] 9.6 fL 6.2-12.[address] [facility] Determination of erythrocyte mean corpuscular volume (MCV)Ordered By: Gracy Shin on 03-25-2023 MCV (RBC) [Entitic vol] 109.7 fL 80-[address] [facility] Hematocrit Auto (Bld) [Volum e fraction]Ordered By: Gracy Shin on 03-25-2023 Hematocrit (Bld) [Volume fraction] 32.7 % 40-[address] [facility] Iron measurement (mass/mass) Ordered By: Gracy Shin on 03-25-2023 Iron (Unsp spec) [Mass/Mass] 27 ug/dL 65-[address] [facility] Laboratory - Chemistry and C hemistry - challengeOrdered By: Gracy Shin on 03-25-2023 Free T4 [Mass/Vol] 1.14 ng/dL 0.76-1.46 [facility] Laboratory - Hematology and Cell countsOrdered By: Gracy Shin on 03-25-2023 Erythrocyte distribution width (RBC) [Entitic vol] 67.0 fL 35.1-43.[address] [facility] Erythrocyte distribution width (RBC) [Ratio] 16.5 % 11.6-14.[address] [facility] Immature granulocytes/100 WBC (Bld) 0.300 % 0.0-0.[address] [facility] Comment on above: IG% - Immature Granu locytes (promyelocytes, myelocytes and metamyelocytes) > 1% indicates that a LEFT SHIFT is Present. MCH (RBC) [Entitic mass] 31.9 pg 27.0-32.[address] [facility] Nucleated RBC/100 WBC (Bld) [Ratio] 0 % 0-[address] [facility] MCHC Auto (RBC) [Mass/Vol]Or dered By: Gracy Shin on 03-25-2023 MCHC (RBC) [Mass/Vol] 29.1 g/dL 32-36 [facility] No Panel InformationOrdered By: Gracy Shin on 03-25-2023 Thyroid Stimulating Hormone (TSH) 0.59 uIU/mL 0.358-3.[address] [facility] Platelets bldOrdered By: Ayana Shin on 03-25-2023 Platelets (Bld) [#/Vol] 197 10*3/uL 150-[address] [facility] Serum or plasma ferritin bg surement (mass/volume)Ordered By: Gracy Shin on 03-25-2023 Ferritin [Mass/Vol] 39 ng/mL 26-388 [facility] Absolute lymphocyte countOrd ered By: Suzanne Cid on 11-17-2022 Lymphocytes Auto (Unsp spec) [#/Vol] 1.52 10*3/uL 0.83-4.[address] [facility] Albumin Elph [Mass/Vol]Order ed By: Suzanne Cid on 11-17-2022 Albumin [Mass/Vol] 3.4 g/dL 2.9-4.4 [facility] Basophil percentageOrdered B y: Suzanne Cid on 11-17-2022 Basophils/100 WBC (Bld) 0.8 % 0-[address] [facility] Eosinophils/100 WBC (Bld) 1.5 % 0-[address] [facility] Neutrophils (Bld) [#/Vol] 2.8 10*3/uL 2.0-7.[address] [facility] Neutrophils/100 WBC (Bld) 57.7 % 47-[address] [facility] WBC (Bld) [#/Vol] 4.8 10*3/uL 4.4-11.0 [facility] Basophil percentage 4.5 mg/dL 2.5-4.9 [facility] Bilirubin [Mass/Vol] 0.40 mg/dL 0.20-1.00 [facility] Comment on above: For patients on eltr ombopag therapy, use of Dimension Piru TBIL is not recommended. Chloride [Moles/Vol] 113 mmol/L 98-107 [facility] Cholesterol [Mass/Vol] 112 mg/dL <200 [facility] Comment on above: <200 mg/dL Desirable 200-240 mg/dL Borderline >240 mg/dL High Risk Glucose [Mass/Vol] 94 mg/dL 74-106 [facility] Potassium [Moles/Vol] 5.1 mmol/L 3.5-5.1 [facility] Protein [Mass/Vol] 7.8 g/dL 6.4-8.2 [facility] Sodium [Moles/Vol] 140 mmol/L 136-145 [facility] Triglyceride [Mass/Vol] 139 mg/dL <199 [facility] Comment on above: The drugs N-Acetylcy steine and Metamizole may falsely depress this assay.Serum Triglycerides Reference Interval Normal <150 mg/dL Borderline high 150 - 199 mg/dL High 200 - 499 mg/dL Very High > or = 500 mg/dL Blood erythrocytes count (nu mber/volume)Ordered By: Suzanne Cid on 11-17-2022 RBC (Bld) [#/Vol] 4.30 10*6/uL 4.6-6.2 [facility] Blood hemoglobin measurement (mass/volume)Ordered By: Suzanne Cid on 11-17-2022 Hemoglobin (Bld) [Mass/Vol] 14.5 g/dL 13.0-16.[address] [facility] Blood lymphocytes/100 leukoc ytesOrdered By: Suzanne Cid on 11-17-2022 Lymphocytes/100 WBC (Bld) 31.7 % 19-[address] [facility] Blood monocytes/100 leukocyt esOrdered By: Suzanne Cid on 11-17-2022 Monocytes/100 WBC (Bld) 8.1 % 0-10 [facility] Blood platelet mean volumeOr dered By: Suzanne Cid on 11-17-2022 Platelet mean volume (Bld) [Entitic vol] 10.3 fL 6.2-12.[address] [facility] Determination of erythrocyte mean corpuscular volume (MCV)Ordered By: Suzanne Cid on 11-17-2022 MCV (RBC) [Entitic vol] 108.4 fL 80-[address] [facility] Direct bilirubinOrdered By: Suzanne Cid on 11-17-2022 Bilirubin.direct [Mass/Vol] 0.18 mg/dL 0.00-0.[address] [facility] Hematocrit Auto (Bld) [Volum e fraction]Ordered By: Suzanne Cid on 11-17-2022 Hematocrit (Bld) [Volume fraction] 46.6 % 40-[address] [facility] Interpretation of serum or p lasma protein pattern by immunofixation (narrative resultOrdered By: Suzanne Cid on 11-17-2022 Protein Fractions Immunofixation Ron [Interp] See comment [facility] Comment on above: Result: Not Observed Iron measurement (mass/mass) Ordered By: Suzanne Cid on 11-17-2022 Iron (Unsp spec) [Mass/Mass] 80 ug/dL 65-[address] [facility] Laboratory - Chemistry and C hemistry - challengeOrdered By: Suzanne Cid on 11-17-2022 ALP [Catalytic activity/Vol] 136 U/L 45-[address] [facility] ALT [Catalytic activity/Vol] 32 U/L 16-[address] [facility] CO2 [Moles/Vol] 23.0 mmol/L 21.0-32.[address] [facility] Free T4 [Mass/Vol] 1.11 ng/dL 0.76-1.46 [facility] Urea nitrogen/Creatinine [Mass ratio] 20.8 mg/mg 10-[address] [facility] Laboratory - Hematology and Cell countsOrdered By: Suzanne Cid on 11-17-2022 Erythrocyte distribution width (RBC) [Entitic vol] 56.9 fL 35.1-43.[address] [facility] Erythrocyte distribution width (RBC) [Ratio] 14.0 % 11.6-14.[address] [facility] Immature granulocytes/100 WBC (Bld) 0.200 % 0.0-0.[address] [facility] Comment on above: IG% - Immature Granu locytes (promyelocytes, myelocytes and metamyelocytes) > 1% indicates that a LEFT SHIFT is Present. MCH (RBC) [Entitic mass] 33.7 pg 27.0-32.[address] [facility] Nucleated RBC/100 WBC (Bld) [Ratio] 0 % 0-[address] [facility] MCHC Auto (RBC) [Mass/Vol]Or dered By: Suzanne Cid on 11-17-2022 MCHC (RBC) [Mass/Vol] 31.1 g/dL 32-36 [facility] No Panel InformationOrdered By: Suzanne Cid on 11-17-2022 Addendum Document Comment . [facility] Comment on above: Protein electrophore sis scan will follow via computer,mail, or correctional officer sergeant delivery. Parathyroid Hormone (Intact) 209.0 pg/mL 18.4-80.[address] [facility] Vitamin D 25-Hydroxy 32.5 ng/mL [facility] Comment on above: Vitamin D 25(OH) Sta tus Range Deficiency <20 ng/mL (50nmol/L) Insufficiency 20 - 30 ng/mL (50 - 75 nmol/L) Sufficiency 30 - 100 ng/mL (75 - 250 nmol/L) Toxicity >100 ng/mL (>250 nmol/L) Estimated GFR (MDRD) Amer 44 mL/min >[address] [facility] Comment on above: GFR Calc Estimated GFR (MDRD) Non-Af Amer 36 mL/min >[address] [facility] Comment on above: Non- GFR Calc Thyroid Stimulating Hormone (TSH) 0.32 uIU/mL 0.358-3.[address] [facility] Platelets bldOrdered By: Pawan Cid on 11-17-2022 Platelets (Bld) [#/Vol] 126 10*3/uL 150-[address] [facility] Serum [id number] measu rement by electrophoresisOrdered By: Suzanne Cid on 11-17-2022 Alpha 1 globulin Elph [Mass/Vol] 0.3 g/dL 0.0-0.[address] [facility] Alpha 1 globulin Elph [Mass/Vol] 0.9 g/dL 0.4-1.[address] [facility] Serum globulin measurement ( mass/volume)Ordered By: Suzanne Cid on 11-17-2022 Globulin (S) [Mass/Vol] 3.5 g/dL 2.2-3.[address] [facility] Serum or plasma IgA measurem ent (mass/volume)Ordered By: Suzanne Cid on 11-17-2022 IgA [Mass/Vol] 356 mg/dL 61-[address] [facility] Serum or plasma IgG measurem ent (mass/volume)Ordered By: Suzanne Cid on 11-17-2022 IgG [Mass/Vol] 1520 mg/dL 603-[address] [facility] Serum or plasma IgM measurem ent (mass/volume)Ordered By: Suzanne Cid on 11-17-2022 IgM [Mass/Vol] 27 mg/dL 20-[address] [facility] Serum or plasma albumin lorena urement (mass/volume)Ordered By: Suzanne Cid on 11-17-2022 Albumin [Mass/Vol] 3.4 g/dL 3.2-5.0 [facility] Serum or plasma albumin/glob ulin mass ratioOrdered By: Suzanne Cid on 11-17-2022 Albumin/Globulin [Mass ratio] 0.8 {ratio} 0.9-2.[address] [facility] Serum or plasma beta globuli n measurement by electrophoresis (mass/volume)Ordered By: Suzanne Cid on 11-17-2022 Beta globulin Elph [Mass/Vol] 0.9 g/dL 0.7-1.[address] [facility] Serum or plasma calcium lorena urement (mass/volume)Ordered By: Suzanne Cid on 11-17-2022 Calcium [Mass/Vol] 9.1 mg/dL 8.5-10.1 [facility] Serum or plasma cholesterol in HDL measurement (mass/volume)Ordered By: Suzanne Cid on 11-17-2022 Cholesterol in HDL [Mass/Vol] 52 mg/dL >[address] [facility] Comment on above: The drugs N-Acetylcy steine and Metamizole may falsely depress this assay. Reference Range HDL <40 mg/dL Low HDL Cholesterol HDL >or= 60 mg/dL High HDL Cholesterol Serum or plasma cholesterol in VLDL measurement (mass/volume)Ordered By: Suzanne Cid on 11-17-2022 Cholesterol in VLDL [Mass/Vol] 28 mg/dL 5-[address] [facility] Serum or plasma complement C 3 measurement (mass/volume)Ordered By: Suzanne Cid on 11-17-2022 Complement C3 [Mass/Vol] 113 mg/dL 82-[address] [facility] Comment on above: Performed at: - [address] [id number] Director: Kaiden Warner PhD, Phone: [phone] Serum or plasma complement C 4 measurement (mass/volume)Ordered By: Suzanne Cid on 11-17-2022 Complement C4 [Mass/Vol] 17 mg/dL 12-[address] [facility] Serum or plasma creatinine m easurement (mass/volume)Ordered By: Suzanne Cid on 11-17-2022 Creatinine [Mass/Vol] 1.97 mg/dL 0.70-1.30 [facility] Comment on above: The validity of the calculated GFR & GFRAA in patients over 70 years has not been determined. Clinical correlation is essential. Serum or plasma ferritin bg surement (mass/volume)Ordered By: Suzanne Cid on 11-17-2022 Ferritin [Mass/Vol] 34 ng/mL 26-388 [facility] Serum or plasma gamma globul in measurement by electrophoresis (mass/volume)Ordered By: Suzanne Cid on 11-17-2022 Gamma globulin Elph [Mass/Vol] 1.4 g/dL 0.4-1.[address] [facility] Serum or plasma immunoelectr ophoresis interpretation (nominal result)Ordered By: Suzanne Cid on 11-17-2022 Interpretation IEP [Interp] Comment . [facility] Comment on above: No monoclonality det ected. Serum or plasma low density lipoprotein (LDL) cholesterol measurement (mass/volume)Ordered By: Suzanne Cid on 11-17-2022 Cholesterol in LDL [Mass/Vol] 32 mg/dL 0-[address] [facility] Serum or plasma urea nitroge n measurement (mass/volume)Ordered By: Suzanne Cid on 11-17-2022 Urea nitrogen [Mass/Vol] 41 mg/dL 7-[address] [facility] Thin prep Papanicolaou smear with manual screeningOrdered By: Suzanne Cid on 11-17-2022 Thin prep Papanicolaou smear with manual screening 1.0 0.7-1.[address] [facility] Thin prep Papanicolaou smear with manual screening 25 U/L 15-[address] [facility] Thin prep Papanicolaou smear with manual screening 4 5-[address] [facility] Total protein bloodOrdered B y: Suzanne Cid on 11-17-2022 Protein [Mass/Vol] 6.9 g/dL 6.0-8.5 [facility] Urine creatinine measurement (mass/volume)Ordered By: Suzanne Cid on 11-17-2022 Creatinine (U) [Mass/Vol] 47.50 mg/dL NO RANGE EST. [facility] Urine protein measurement (m ass/volume)Ordered By: Suzanne Cid on 11-17-2022 Protein (U) [Mass/Vol] 120.2 mg/dL 0.0-11.[address] [facility] Urine protein/creatinine mas s ratioOrdered By: Suzanne iCd on 11-17-2022 Protein/Creatinine (U) [Mass ratio] 2531 mg/g CRE 0-[address] [facility] Absolute lymphocyte countOrd ered By: Dr. Whitaker on 05-23-2022 Lymphocytes Auto (Unsp spec) [#/Vol] 1.04 10*3/uL 0.83-4.[address] [facility] Basophil percentageOrdered B y: Dr. Whitaker on 05-23-2022 Basophils/100 WBC (Bld) 0.8 % 0-[address] [facility] Eosinophils/100 WBC (Bld) 1.2 % 0-[address] [facility] Neutrophils (Bld) [#/Vol] 4.4 10*3/uL 2.0-7.[address] [facility] Neutrophils/100 WBC (Bld) 72.2 % 47-[address] [facility] WBC (Bld) [#/Vol] 6.1 10*3/uL 4.4-11.0 [facility] Basophil percentage 3.4 mg/dL 2.5-4.9 [facility] Bilirubin [Mass/Vol] 0.60 mg/dL 0.20-1.00 [facility] Comment on above: For patients on eltr ombopag therapy, use of Dimension Piru TBIL is not recommended. Chloride [Moles/Vol] 106 mmol/L 98-107 [facility] Cholesterol [Mass/Vol] 79 mg/dL <200 [facility] Comment on above: <200 mg/dL Desirable 200-240 mg/dL Borderline >240 mg/dL High Risk Glucose [Mass/Vol] 104 mg/dL 74-106 [facility] Comment on above: Fasting Glucose resu lt from 100 to 125 mg/dL suggests IMPAIRED HOMEOSTASIS per A.D.A. criteria. Potassium [Moles/Vol] 5.0 mmol/L 3.5-5.1 [facility] Protein [Mass/Vol] 7.5 g/dL 6.4-8.2 [facility] Sodium [Moles/Vol] 140 mmol/L 136-145 [facility] Triglyceride [Mass/Vol] 87 mg/dL <199 [facility] Comment on above: The drugs N-Acetylcy steine and Metamizole may falsely depress this assay.Serum Triglycerides Reference Interval Normal <150 mg/dL Borderline high 150 - 199 mg/dL High 200 - 499 mg/dL Very High > or = 500 mg/dL Blood erythrocytes count (nu mber/volume)Ordered By: Dr. Whitaker on 05-23-2022 RBC (Bld) [#/Vol] 3.68 10*6/uL 4.6-6.2 [facility] Blood hemoglobin measurement (mass/volume)Ordered By: Dr. Whitaker on 05-23-2022 Hemoglobin (Bld) [Mass/Vol] 12.1 g/dL 13.0-16.[address] [facility] Blood lymphocytes/100 leukoc ytesOrdered By: Dr. Whitaker on 05-23-2022 Lymphocytes/100 WBC (Bld) 17.2 % 19-[address] [facility] Blood monocytes/100 leukocyt esOrdered By: Dr. Whitaker on 05-23-2022 Monocytes/100 WBC (Bld) 8.3 % 0-10 [facility] Blood platelet mean volumeOr dered By: Dr. Whitaker on 05-23-2022 Platelet mean volume (Bld) [Entitic vol] 9.8 fL 6.2-12.[address] [facility] Determination of erythrocyte mean corpuscular volume (MCV)Ordered By: Dr. Whitaker on 05-23-2022 MCV (RBC) [Entitic vol] 105.2 fL 80-[address] [facility] Direct bilirubinOrdered By: Dr. Whitaker on 05-23-2022 Bilirubin.direct [Mass/Vol] 0.26 mg/dL 0.00-0.[address] [facility] Hematocrit Auto (Bld) [Volum e fraction]Ordered By: Dr. Whitaker on 05-23-2022 Hematocrit (Bld) [Volume fraction] 38.7 % 40-[address] [facility] Iron measurement (mass/mass) Ordered By: Dr. Whitaker on 05-23-2022 Iron (Unsp spec) [Mass/Mass] 63 ug/dL 65-[address] [facility] Laboratory - Chemistry and C hemistry - challengeOrdered By: Dr. Whitaker on 05-23-2022 ALP [Catalytic activity/Vol] 142 U/L 45-[address] [facility] ALT [Catalytic activity/Vol] 16 U/L 16-[address] [facility] CO2 [Moles/Vol] 26.0 mmol/L 21.0-32.[address] [facility] Globulin (S) [Mass/Vol] 4.5 g/dL 2.2-4.[address] [facility] Urea nitrogen/Creatinine [Mass ratio] 19.0 mg/mg 10-[address] [facility] Laboratory - Hematology and Cell countsOrdered By: Dr. Whitaker on 05-23-2022 Erythrocyte distribution width (RBC) [Entitic vol] 52.8 fL 35.1-43.[address] [facility] Erythrocyte distribution width (RBC) [Ratio] 13.8 % 11.6-14.[address] [facility] Immature granulocytes/100 WBC (Bld) 0.300 % 0.0-0.[address] [facility] Comment on above: IG% - Immature Granu locytes (promyelocytes, myelocytes and metamyelocytes) > 1% indicates that a LEFT SHIFT is Present. MCH (RBC) [Entitic mass] 32.9 pg 27.0-32.[address] [facility] Nucleated RBC/100 WBC (Bld) [Ratio] 0 % 0-5 [facility] Auto (RBC) [Mass/Vol]Or dered By: Dr. Whitaker on 05-23-2022 MCHC (RBC) [Mass/Vol] 31.3 g/dL 32-36 [facility] No Panel InformationOrdered By: Dr. Whitaker on 05-23-2022 Parathyroid Hormone (Intact) 150.3 pg/mL 18.4-80.[address] [facility] Vitamin D 25-Hydroxy 44.3 ng/mL [facility] Comment on above: Vitamin D 25(OH) Sta tus Range Deficiency <20 ng/mL (50nmol/L) Insufficiency 20 - 30 ng/mL (50 - 75 nmol/L) Sufficiency 30 - 100 ng/mL (75 - 250 nmol/L) Toxicity >100 ng/mL (>250 nmol/L) Estimated GFR (MDRD) Amer 49 mL/min >[address] [facility] Comment on above: GFR Calc Estimated GFR (MDRD) Non-Af Amer 41 mL/min >[address] [facility] Comment on above: Non- GFR Calc Thyroid Stimulating Hormone (TSH) 0.76 uIU/mL 0.358-3.[address] [facility] Platelets bldOrdered By: Dr. Whitaker on 05-23-2022 Platelets (Bld) [#/Vol] 139 10*3/uL 150-[address] [facility] Serum or plasma albumin lorena urement (mass/volume)Ordered By: Dr. Whitaker on 05-23-2022 Albumin [Mass/Vol] 3.0 g/dL 3.2-5.0 [facility] Serum or plasma albumin/glob ulin mass ratioOrdered By: Dr. Whitaker on 05-23-2022 Albumin/Globulin [Mass ratio] 0.7 {ratio} 0.9-2.[address] [facility] Serum or plasma calcium lorena urement (mass/volume)Ordered By: Dr. Whitaker on 05-23-2022 Calcium [Mass/Vol] 9.0 mg/dL 8.5-10.1 [facility] Serum or plasma cholesterol in HDL measurement (mass/volume)Ordered By: Dr. Whitaker on 05-23-2022 Cholesterol in HDL [Mass/Vol] 43 mg/dL >[address] [facility] Comment on above: The drugs N-Acetylcy steine and Metamizole may falsely depress this assay. Reference Range HDL <40 mg/dL Low HDL Cholesterol HDL >or= 60 mg/dL High HDL Cholesterol Serum or plasma cholesterol in VLDL measurement (mass/volume)Ordered By: Dr. Whitaker on 05-23-2022 Cholesterol in VLDL [Mass/Vol] 17 mg/dL 5-[address] [facility] Serum or plasma creatinine m easurement (mass/volume)Ordered By: Dr. Whitaker on 05-23-2022 Creatinine [Mass/Vol] 1.79 mg/dL 0.70-1.30 [facility] Comment on above: The validity of the calculated GFR & GFRAA in patients over 70 years has not been determined. Clinical correlation is essential. Serum or plasma ferritin bg surement (mass/volume)Ordered By: Dr. Whitaker on 05-23-2022 Ferritin [Mass/Vol] 61 ng/mL 26-388 [facility] Serum or plasma low density lipoprotein (LDL) cholesterol measurement (mass/volume)Ordered By: Dr. Whitaker on 05-23-2022 Cholesterol in LDL [Mass/Vol] 19 mg/dL 0-[address] [facility] Serum or plasma urea nitroge n measurement (mass/volume)Ordered By: Dr. Whitaker on 05-23-2022 Urea nitrogen [Mass/Vol] 34 mg/dL 7-[address] [facility] Thin prep Papanicolaou smear with manual screeningOrdered By: Dr. Whitaker on 05-23-2022 Thin prep Papanicolaou smear with manual screening 17 U/L 15-[address] [facility] Thin prep Papanicolaou smear with manual screening 8 5-[address] [facility] Urine creatinine measurement (mass/volume)Ordered By: Dr. Whitaker on 05-23-2022 Creatinine (U) [Mass/Vol] 35.20 mg/dL NO RANGE EST. [facility] Urine protein measurement (m ass/volume)Ordered By: Dr. Whitaker on 05-23-2022 Protein (U) [Mass/Vol] 206.1 mg/dL 0.0-11.8 [facility] Urine protein/creatinine mas s ratioOrdered By: Dr. Whitaker on 05-23-2022 Protein/Creatinine (U) [Mass ratio] 5855 mg/g CRE 0-[address] [facility] Absolute lymphocyte countOrd ered By: Suzanne Cid on 02-19-2022 Lymphocytes Auto (Unsp spec) [#/Vol] 1.43 10*3/uL 0.83-4.[address] [facility] Basophil percentageOrdered B y: Suzanne Cid on 02-19-2022 Basophils/100 WBC (Bld) 0.8 % 0-[address] [facility] Eosinophils/100 WBC (Bld) 1.7 % 0-[address] [facility] Neutrophils (Bld) [#/Vol] 3.2 10*3/uL 2.0-7.[address] [facility] Neutrophils/100 WBC (Bld) 60.0 % 47-[address] [facility] WBC (Bld) [#/Vol] 5.3 10*3/uL 4.4-11.0 [facility] Blood erythrocytes count (nu mber/volume)Ordered By: Suzanne Cid on 02-19-2022 RBC (Bld) [#/Vol] 3.68 10*6/uL 4.6-6.2 [facility] Blood hemoglobin measurement (mass/volume)Ordered By: Suzanne Cid on 02-19-2022 Hemoglobin (Bld) [Mass/Vol] 12.8 g/dL 13.0-16.[address] [facility] Blood lymphocytes/100 leukoc ytesOrdered By: Suzanne Cid on 02-19-2022 Lymphocytes/100 WBC (Bld) 27.1 % 19-[address] [facility] Blood monocytes/100 leukocyt esOrdered By: Suzanne Cid on 02-19-2022 Monocytes/100 WBC (Bld) 10.2 % 0-[address] [facility] Blood platelet mean volumeOr dered By: Suzanne iCd on 02-19-2022 Platelet mean volume (Bld) [Entitic vol] 9.9 fL 6.2-12.[address] [facility] Determination of erythrocyte mean corpuscular volume (MCV)Ordered By: Suzanne Cid on 02-19-2022 MCV (RBC) [Entitic vol] 109.0 fL 80-[address] [facility] Hematocrit Auto (Bld) [Volum e fraction]Ordered By: Suzanne Cid on 02-19-2022 Hematocrit (Bld) [Volume fraction] 40.1 % 40-[address] [facility] Laboratory - Hematology and Cell countsOrdered By: Suzanne Cid on 02-19-2022 Erythrocyte distribution width (RBC) [Entitic vol] 55.6 fL 35.1-43.[address] [facility] Erythrocyte distribution width (RBC) [Ratio] 13.7 % 11.6-14.[address] [facility] Immature granulocytes/100 WBC (Bld) 0.200 % 0.0-0.[address] [facility] Comment on above: IG% - Immature Granu locytes (promyelocytes, myelocytes and metamyelocytes) > 1% indicates that a LEFT SHIFT is Present. MCH (RBC) [Entitic mass] 34.8 pg 27.0-32.[address] [facility] Nucleated RBC/100 WBC (Bld) [Ratio] 0 % 0-[address] [facility] MCHC Auto (RBC) [Mass/Vol]Or dered By: Suzanne Cid on 02-19-2022 MCHC (RBC) [Mass/Vol] 31.9 g/dL 32-36 [facility] Platelets bldOrdered By: Pawan Cid on 02-19-2022 Platelets (Bld) [#/Vol] 130 10*3/uL 150-[address] [facility] Basophil percentageon 2021 Basophil percentage 3.4 mg/dL 2.5-4.9 [facility] Work Phone: Bilirubin [Mass/Vol] 0.40 mg/dL 0.20-1.00 [facility] Work Phone: Comment on above: For patients on eltr ombopag therapy, use of Dimension Piru TBIL is not recommended. Chloride [Moles/Vol] 117 mmol/L 98-107 [facility] Work Phone: Cholesterol [Mass/Vol] 60 mg/dL <200 [facility] Work Phone: Comment on above: <200 mg/dL Desirable 200-240 mg/dL Borderline >240 mg/dL High Risk Glucose [Mass/Vol] 89 mg/dL 74-106 [facility] Work Phone: Potassium [Moles/Vol] 4.9 mmol/L 3.5-5.1 [facility] Work Phone: Protein [Mass/Vol] 6.8 g/dL 6.4-8.2 [facility] Work Phone: Sodium [Moles/Vol] 141 mmol/L 136-145 [facility] Work Phone: Triglyceride [Mass/Vol] 83 mg/dL <[address] [facility] Work Phone: Comment on above: The drugs N-Acetylcy steine and Metamizole may falsely depress this assay.Serum Triglycerides Reference Interval Normal <150 mg/dL Borderline high 150 - 199 mg/dL High 200 - 499 mg/dL Very High > or = 500 mg/dL WBC (Bld) [#/Vol] 3.3 10*3/uL 4.4-11.0 [facility] Work Phone: Blood erythrocytes count (nu mber/volume)on 11-20-2021 RBC (Bld) [#/Vol] 3.57 10*6/uL 4.6-6.2 [facility] Work Phone: Blood hemoglobin measurement (mass/volume)on 11-20-2021 Hemoglobin (Bld) [Mass/Vol] 12.7 g/dL 13.0-16.[address] [facility] Work Phone: Blood platelet mean volumeon 11-20-2021 Platelet mean volume (Bld) [Entitic vol] 9.7 fL 6.2-12.[address] [facility] Work Phone: Determination of erythrocyte mean corpuscular volume (MCV)on 11-20-2021 MCV (RBC) [Entitic vol] 107.0 fL 80-[address] [facility] Work Phone: Direct bilirubinon 2 Bilirubin.direct [Mass/Vol] 0.20 mg/dL 0.00-0.[address] [facility] Work Phone: Hematocrit Auto (Bld) [Volum e fraction]on 11-20-2021 Hematocrit (Bld) [Volume fraction] 38.2 % 40-[address] [facility] Work Phone: Laboratory - Chemistry and C hemistry - challengeon 11-20-2021 ALP [Catalytic activity/Vol] 127 U/L 45-[address] [facility] Work Phone: ALT [Catalytic activity/Vol] 21 U/L 16-[address] [facility] Work Phone: CO2 [Moles/Vol] 22.0 mmol/L 21.0-32.[address] [facility] Work Phone: Globulin (S) [Mass/Vol] 4.0 g/dL 2.2-4.[address] [facility] Work Phone: Urea nitrogen/Creatinine [Mass ratio] 18.9 mg/mg 10-[address] [facility] Work Phone: Laboratory - Hematology and Cell countson 11-20-2021 Erythrocyte distribution width (RBC) [Entitic vol] 60.7 fL 35.1-43.[address] [facility] Work Phone: Erythrocyte distribution width (RBC) [Ratio] 15.4 % 11.6-14.[address] [facility] Work Phone: MCH (RBC) [Entitic mass] 35.6 pg 27.0-32.[address] [facility] Work Phone: MCHC Auto (RBC) [Mass/Vol]on 11-20-2021 MCHC (RBC) [Mass/Vol] 33.2 g/dL 32-36 [facility] Work Phone: No Panel Informationon 11-20 Estimated GFR (MDRD) Amer 37 mL/min >[address] [facility] Work Phone: Comment on above: GFR Calc Estimated GFR (MDRD) Non-Af Amer 31 mL/min >[address] [facility] Work Phone: Comment on above: Non- GFR Calc Parathyroid Hormone (Intact) 120.9 pg/mL 18.4-80.[address] [facility] Work Phone: Vitamin D 25-Hydroxy 63.6 ng/mL [facility] Work Phone: Comment on above: Vitamin D 25(OH) Sta tus Range Deficiency <20 ng/mL (50nmol/L) Insufficiency 20 - 30 ng/mL (50 - 75 nmol/L) Sufficiency 30 - 100 ng/mL (75 - 250 nmol/L) Toxicity >100 ng/mL (>250 nmol/L) Platelets bldon 11-20-2021 Platelets (Bld) [#/Vol] 113 10*3/uL 150-[address] [facility] Work Phone: Serum or plasma albumin lorena urement (mass/volume)on 11-20-2021 Albumin [Mass/Vol] 2.8 g/dL 3.2-5.0 [facility] Work Phone: Serum or plasma calcium lorena urement (mass/volume)on 11-20-2021 Calcium [Mass/Vol] 8.3 mg/dL 8.5-10.1 [facility] Work Phone: Serum or plasma cholesterol in HDL measurement (mass/volume)on 11-20-2021 Cholesterol in HDL [Mass/Vol] 34 mg/dL >[address] [facility] Work Phone: Comment on above: The drugs N-Acetylcy steine and Metamizole may falsely depress this assay. Reference Range HDL <40 mg/dL Low HDL Cholesterol HDL >or= 60 mg/dL High HDL Cholesterol Serum or plasma cholesterol in VLDL measurement (mass/volume)on 11-20-2021 Cholesterol in VLDL [Mass/Vol] 17 mg/dL 5-[address] [facility] Work Phone: Serum or plasma creatinine m easurement (mass/volume)on 11-20-2021 Creatinine [Mass/Vol] 2.28 mg/dL 0.70-1.30 [facility] Work Phone: Comment on above: The validity of the calculated GFR & GFRAA in patients over 70 years has not been determined. Clinical correlation is essential. Serum or plasma low density lipoprotein (LDL) cholesterol measurement (mass/volume)on 11-20-2021 Cholesterol in LDL [Mass/Vol] 9 mg/dL 0-[address] [facility] Work Phone: Serum or plasma urea nitroge n measurement (mass/volume)on 11-20-2021 Urea nitrogen [Mass/Vol] 43 mg/dL 7-[address] [facility] Work Phone: Thin prep Papanicolaou smear with manual screeningon 11-20-2021 Thin prep Papanicolaou smear with manual screening 25 U/L 15-[address] [facility] Work Phone: Thin prep Papanicolaou smear with manual screening 2 5-[address] [facility] Work Phone: Urine creatinine measurement (mass/volume)on 11-20-2021 Creatinine (U) [Mass/Vol] 53.60 mg/dL NO RANGE EST. [facility] Work Phone: Urine protein measurement (m ass/volume)on 11-20-2021 Protein (U) [Mass/Vol] 101.0 mg/dL 0.0-11.[address] [facility] Work Phone: Urine protein/creatinine mas s ratioon 11-20-2021 Protein/Creatinine (U) [Mass ratio] 1884 mg/g CRE 0-[address] [facility] Work Phone: Basophil percentageon 2021 Basophil percentage 4.0 mg/dL 2.5-4.9 [facility] Work Phone: Chloride [Moles/Vol] 111 mmol/L 98-[address] [facility] Work Phone: Glucose [Mass/Vol] 97 mg/dL 74-106 [facility] Work Phone: Potassium [Moles/Vol] 4.6 mmol/L 3.5-5.1 [place] [address] [facility] Work Phone: Sodium [Moles/Vol] 140 mmol/L 136-145 [facility] Work Phone: WBC (Bld) [#/Vol] 6.1 10*3/uL 4.4-11.0 [facility] Work Phone: Blood erythrocytes count (nu mber/volume)on 10-09-2021 RBC (Bld) [#/Vol] 4.16 10*6/uL 4.6-6.2 [facility] Work Phone: Blood hemoglobin measurement (mass/volume)on 10-09-2021 Hemoglobin (Bld) [Mass/Vol] 14.1 g/dL 13.0-16.[address] [facility] Work Phone: Blood platelet mean volumeon 10-09-2021 Platelet mean volume (Bld) [Entitic vol] 9.6 fL 6.2-12.[address] [facility] Work Phone: Determination of erythrocyte mean corpuscular volume (MCV)on 10-09-2021 MCV (RBC) [Entitic vol] 103.1 fL 80-[address] [facility] Work Phone: Hematocrit Auto (Bld) [Volum e fraction]on 10-09-2021 Hematocrit (Bld) [Volume fraction] 42.9 % 40-[address] [facility] Work Phone: Laboratory - Chemistry and C hemistry - challengeon 10-09-2021 CO2 [Moles/Vol] 24.0 mmol/L 21.0-32.[address] [facility] Work Phone: Free T4 [Mass/Vol] 1.17 ng/dL 0.76-1.46 [facility] Work Phone: Urea nitrogen/Creatinine [Mass ratio] 15.9 mg/mg - [facility] Work Phone: Laboratory - Hematology and Cell countson 10-09-2021 Erythrocyte distribution width (RBC) [Entitic vol] 52.1 fL 35.1-43.[address] [facility] Work Phone: Erythrocyte distribution width (RBC) [Ratio] 13.7 % 11.6-14.[address] [facility] Work Phone: MCH (RBC) [Entitic mass] 33.9 pg 27.0-32.[address] [facility] Work Phone: MCHC Auto (RBC) [Mass/Vol]on 10-09-2021 MCHC (RBC) [Mass/Vol] 32.9 g/dL 32-36 [facility] Work Phone: No Panel Informationon 10-09 Estimated GFR (MDRD) Amer 36 mL/min >[address] [facility] Work Phone: Comment on above: GFR Calc Estimated GFR (MDRD) Non-Af Amer 30 mL/min >[address] [facility] Work Phone: Comment on above: Non- GFR Calc Parathyroid Hormone (Intact) 198.9 pg/mL 18.4-80.[address] [facility] Work Phone: Thyroid Stimulating Hormone (TSH) 1.35 uIU/mL 0.358-3.[address] [facility] Work Phone: Vitamin D 25-Hydroxy 47.2 ng/mL [facility] Work Phone: Comment on above: Vitamin D 25(OH) Sta tus Range Deficiency <20 ng/mL (50nmol/L) Insufficiency 20 - 30 ng/mL (50 - 75 nmol/L) Sufficiency 30 - 100 ng/mL (75 - 250 nmol/L) Toxicity >100 ng/mL (>250 nmol/L) Platelets bldon 10-09-2021 Platelets (Bld) [#/Vol] 137 10*3/uL 150-[address] [facility] Work Phone: Serum or plasma albumin lorena urement (mass/volume)on 10-09-2021 Albumin [Mass/Vol] 3.0 g/dL 3.2-5.0 [facility] Work Phone: Serum or plasma calcium lorena urement (mass/volume)on 10-09-2021 Calcium [Mass/Vol] 8.9 mg/dL 8.5-10.1 [facility] Work Phone: Serum or plasma creatinine m easurement (mass/volume)on 10-09-2021 Creatinine [Mass/Vol] 2.33 mg/dL 0.70-1.30 [facility] Work Phone: Comment on above: The validity of the calculated GFR & GFRAA in patients over 70 years has not been determined. Clinical correlation is essential. Serum or plasma urea nitroge n measurement (mass/volume)on 10-09-2021 Urea nitrogen [Mass/Vol] 37 mg/dL 7-[address] [facility] Work Phone: Urine creatinine measurement (mass/volume)on 10-09-2021 Creatinine (U) [Mass/Vol] 52.20 mg/dL NO RANGE EST. [facility] Work Phone: Urine protein measurement (m ass/volume)on 10-09-2021 Protein (U) [Mass/Vol] 133.6 mg/dL 0.0-11.[address] [facility] Work Phone: Urine protein/creatinine mas s ratioon 10-09-2021 Protein/Creatinine (U) [Mass ratio] 2559 mg/g CRE 0-[address] [facility] Work Phone: Laboratory - Microbiology an d Antimicrobial susceptibilityon 09-03-2021 SARS-CoV-2 (COVID-19) RNA BENJAMIN+probe Ql (Unsp spec) Not detected [facility] Work Phone: No Panel Informationon 09-03 Influenza Types A,B Rapid (Clinic) Not detected [facility] Work Phone: HOSPon 05-05-2018 HOSP Patient:Jack White MRN: Height:6' 1.5(1.867 m) Weight:No patient weight recorded within the last 30 days. Outpatient Medications as of 05/13/18: furosemide (LASIX) 40 mg tablet SODIUM BICARBONATE ORAL perflutren lipid microspheres (DEFINITY) 1.1 mg/mL injection (to be provided with echo procedure) calcium acetate 667 mg (169 mg calcium)/5 mL soln carvedilol (COREG) 25 mg tablet acetaminophen (TYLENOL) 325 mg tablet aspirin 81 mg chewable tablet cholecalciferol 3,000 unit tab thiamine (VITAMIN B1) [address] (PROTONIX) 20 mg tablet atorvastatin (LIPITOR) 80 mg tablet levothyroxine (LEVOXYL) 200 mcg tablet cyanocobalamin (VITAMIN B-12) 100 mcg tab Admission/Clinic Administered Medications as of 05/13/18: Patient has no admission medications. Problem List: IRINA (acute kidney injury) (HCC) [N17.9] Atrial fibrillation (HCC) [I48.91] HTN (hypertension) [I10] Subacute bacterial endocarditis [I33.0] Pain, postoperative, acute [G89.18] Transition of care performed with sharing of clinical summary [Z91.89] Discharge planning issues [Z02.9] Hemothorax [J94.2] Allergies: Penicillin Date Verified: 05/13/18 Lab Values No results within the last 30 days for the following basenames: K,HCT No progress notes entered within the past 30 days Normal [facility] BRIEF OP NOTon 03-11-2018 BRIEF OP NOT HNO ID: [id number]: Huseyin Prescott: RadiologyAuthor Type: PhysicianType: Brief Op NoteFiled: 03/11/2018 9:44 AMNote Text:Successful removal of right IJ tunneled central venous catheter with localanesthesia. EBL < 1 cc. No immediate complications. Normal [facility] IR CVC TUNNEL W/O PORT REMOV Martínez 03-11-2018 IR CVC TUNNEL W/O PORT REMOVE * * *Final Report* * *DATE OF EXAM: Mar 11 2018 9:25AM [facility] [id number] - IR CVC TUNNEL W/O PORT REMOVE / REASON: ENDOCARDITIS/COMPLETION OF TREATMENT * * * * Physician Interpretation * * * * PROCEDURE: Tunneled central venous catheter removalDATE: 03/11/2018INDICATION: Completion of antibiotic therapyENCOUNTER: InitialCOMPARISON: Images from tunneled central venous catheter placement performed on 01/18/2018TECHNIQUE:Sia ent was brought to the angiography nurses suite and placed in supine position on the cart. The site of the indwelling tunneled right internal jugular central venous catheter was prepped and draped in usual sterile fashion.2% lidocaine was injected for local anesthesia. The catheter was freed from the subcutaneous tissues, utilizing blunt dissection and the catheter was removed in its entirety. Manual pressure was applied until hemostasis. Sterile dressings were applied.No immediate complication was noted.FINDINGS:Successfu l removal of right internal jugular tunneled central venous catheter, as described above.IMPRESSION:Success ful removal of tunneled central venous catheter, as described above.Client Experience Specialist: PSCNavneet Transcribe Date/Time: Mar 11 2018 3:18PDictated by : HUSEYIN HENRY MDThis examination was interpreted and the report reviewed and electronically signed by: HUSEYIN HENRY MD on Mar 11 2018 3:21PM [id number] [facility] PT EDon 03-11-2018 PT ED HNO ID: [id number]: Joy (Dieudonne) GERSON Isidroervice: RadiologyAuthor Type: Registered NurseType: Patient EducationFiled: 03/11/2018 8:37 AMNote Text:AMBULATORY PATIENT EDUCATIONTOPIC: Survival Skills: SURVIVAL SKILLS: line removalREADINESS TO LEARNCOGNITIVE ABILITY: Alert and orientedMOTIVATION TO LEARN: EagerFAMILY SUPPORT: None - Unavailable/disintereste dINSTRUCTION PROVIDED TO: PatientPATIENT LEARNS BEST BY: Individual InstructionWritten Instruction - Hand-outsFACTORS AFFECTING LEARNING: NonePHYSICAL LIMITATIONS AFFECTING LEARNING: NoneLEARNING RESPONSEDIAGNOSIS: s/p infectionMETHOD OF INSTRUCTION: Individual instructionWritten instruction - handoutsPATIENT / FAMILY RESPONSE: Verbalizes understanding of: POST-PROCEDUREINSTRUCTIO NS-Correct actions to take to reduce post procedurecomplicationsPR E-PROCEDURE INSTRUCTIONS-Correct action to take to follow pre-procedureinstruction sFOLLOW-UP PLAN: Complete - No need for figshd-pxSpafwf-ns with Primary CareSUPPLEMENTAL MATERIAL: NoneREFERRAL (RECOMMENDATION): NoneElectronically Signed By: Joy Isidro RN In Department: [facility]SEE PATIENT EDUCATION SECTION OF THE EMR [facility] HOSPon 02-22-2018 HOSP Patient:Jack White MRN: Height:6' 1.5(1.867 m)Weight:208 lb (94.348 kg)Outpatient Medications as of 03/11/18:acetaminophen (TYLENOL) 325 mg tabletaspirin 81 mg chewable tabletatorvastatin (LIPITOR) 80 mg tabletcalcium acetate 667 mg (169 mg calcium)/5 mL solncarvedilol (COREG) 25 mg tabletcholecalciferol 3,000 unit tabcyanocobalamin (VITAMIN B-12) 100 mcg tabdoxycycline monohydrate 100 mg tabletlevothyroxine (LEVOXYL) [address] (PROTONIX) 20 mg tabletthiamine (VITAMIN B1) 100 mg tabletAdmission/Clinic Administered Medications as of 03/11/18:Patient has no admission medications.Problem List:IRINA (acute kidney injury) (HCC) [N17.9]Atrial fibrillation (HCC) [I48.91]HTN (hypertension) [I10]Subacute bacterial endocarditis [I33.0]Pain, postoperative, acute [G89.18]Transition of care performed with sharing of clinical summary [Z91.89]Discharge planning issues [Z02.9]Hemothorax [J94.2]Allergies:Penicil linDate Verified: 03/11/18Lab ValuesLab Value Units Date High LowPOTA* 4.3 mmol/L 03/05/2018 5.1 3.7HEMA* 25.4 % 03/05/2018 51.0 39.0Progress Notes ([facility]IN):Jadon Bingham 03/05/2018 4:12 PM SignedPhysician: Scar OlivasPhone number where pharmacist can be reached: [phone](Mar)Best time to call - AnytimeName of pharmacy - [facility] PharmacyReason for call: Medication Issue/Question- Mar from [facility] called inrequesting a return call regarding a question she has about patient'sdoxycycline monohydrate prescription.Jadon GomessProgreese Notes ([facility] MAIN):Scar Olivas MD 03/05/2018 3:30 PM SignedFrank White is a 62 year old male with a history of EndocarditisFrom my last inpatient note 02/04-ASSESSMENT: 62-year-old with multiple medical problems including but not limited to atrialfibrillation, hypertension, and aortic stenosis status post aortic valvereplacement in April 2017 with a permanent pacemaker placed shortlythereafter was transferred to our hospital on 12/24 for further evaluation of anacute kidney injury. He initially presented to an outside hospital on 12/19 forfurther evaluation of a new anemia and renal failure [facility] and shortness of breath. 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 He is requiring renal replacement therapy.?Notable aspects of his workup thus far from infectious disease perspective hasincluded:2 blood cultures 12/25-no growth to dateBartonella serologies-IgG for Bartonella henselae greater than 1:1024, IgG forBartonella amato 1:1024Transesophageal echocardiogram 01/01-2-3+ TR, 3+ AI, thickening of theaorto-mitral curtain and posterior LA wall suggestive of either hematoma oractive infection, small mobile echodensity within the RA-vegetation versusthrombusCT chest cardiac 01/07-moderate diffuse leaflet calcificationCT brain 01/07-no acute findingsCT abdomen and pelvis 01/06-evolving large rectus sheath hematoma CT abdomen pelvis 01/17-rectus hematoma was stable craniocaudaddimensions but slight difference in axial configuration?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 In speaking with him and in reviewing his records there was no suspicionfor endocarditis of the time of his operation in April. He continues torequire renal replacement therapy.?The patient was taken to the operating room on 01/19 and underwentSURGERY/PROCEDU RE: ?Reoperation second open-heart surgery. ?Aortic valve withroot ?debridement and replacement with 26-mm aortic homograft. ?Tricuspid valverepair ?according to Jose. ?Removal of pacemaker and permanent leads andplacement of new ?epicardial leads on RV, LV, and right atrium and implantationof a new pacemaker. . Operative findings: Vegetations on all 3 leaflets, partiallydehisced valve, several penetrations into the annulus posteriorly under the leftnon-commissure and under the right non-commissure Operative cultures: No growth to date Histopathology: Specimen aortic valve-acute inflammation and focalcalcification, cocci seen on GMS PCR: Bartonella species?His postoperative course was notable for the development of a right hemothoraxwhich required return to the operating room on 01/28 for VATS and hematomaevacuation.?He is making gradual progress postoperatively. He is tolerating hisantibiotics. He continues to require renal replacement therapy.?RECOMMENDATIONS :Continue doxycycline 100 mg po every 12 hoursContinue ceftriaxone 2 g IV every 24 hours?At this time expect his discharge regimen to be-Ceftriaxone 2 g IV every 24 hoursDoxycycline 100 mg by mouth every 12 hoursTreat until 03/02/18.COPAT rx electronically signed and available in the outpatient encounter sectionof [facility], updated February 04, 2018.I can see him back in 02/24 at 13:00.INTERVAL EVENTS: Returns for follow-up today. He has done reasonably well sinceI saw him last. He has been able to increase his activity level. He has a goodappetite. He continues to require thrice weekly dialysis. He is urinatingmore. He has tolerated his antibiotics without difficulty. His Antelmo catheterhas continued to work without significant difficulty. He is scheduled to haveit [facility] next [facility] at [facility].He denies any fever, chills, sweats, or other constitutional symptoms.CURRENT MEDICATIONS:Current Outpatient Prescriptions:acetaminop hen (TYLENOL) 325 mg tablet Take 1-2 tablets by mouth every 4 hours asneeded for Pain (for mild to moderate pain).aspirin 81 mg chewable tablet Take 2 tablets by mouth once daily.atorvastatin (LIPITOR) 80 mg tablet Take 80 mg by mouth once daily.calcium acetate 667 mg (169 mg calcium)/5 mL soln Take by mouth.cholecalciferol 3,000 unit tab Take 1 tablet by mouth once daily.cyanocobalamin (VITAMIN B-12) 100 mcg tab Take 500 mcg by mouth once daily.doxycycline monohydrate 100 mg tablet Take 1 tablet by mouth twice daily for 3days.levothyroxine (LEVOXYL) 200 mcg tablet Take 200 mcg by mouth daily beforebreakfast.pantopra zole DR (PROTONIX) 20 mg tablet Take 1 tablet by mouth once daily.thiamine (VITAMIN B1) 100 mg tablet Take 1 tablet by mouth once daily.carvedilol (COREG) 6.25 mg tablet Take 6.25 mg by mouth twice daily with meals.No current facility-administered medications for this visit.REVIEW OF SYSTEMS: In addition to those reviewed and documented in the HPI allother systems reviewed and were negative.PHYSICAL EXAM:BP 169/109 Pulse 91 Temp 36.5 ?C (97.7 ?F) (Temporal Artery) Resp 20 Wt 94.3 kg (208 lb) SpO2 98% BMI 25.32 kg/m?Looks well, mother with himSkin: No rashLungs: CTACV: Rate and rhythm normal, S1 and G3Nbcwiwq: SoftExtremity: No significant lower extremity edemaSternotomy intactOld device site in the left upper chest intactLeft upper quadrant pacemaker site intactVascular Catheter Site: cleanVenous Changes: NoneComment: Personally reviewed imaging studies, laboratory results, andmicrobiology results.[id number] with multiple medical problems including but not limited toatrial fibrillation, hypertension, and aortic stenosis was [facility] for further evaluation of an acute kidney injury. He hadundergone aortic valve replacement in April 2017. [facility] for anemia and new renal failure. Hewas diagnosed with a glomerulonephritis. He was transferred.His kidney biopsy was reviewed here and was found to be consistent withinfection related glomerulonephritis. Focal crescentric GN with IgM/C3 depositswere seen. He required renal replacement therapy. His biopsy findings promptedan infectious disease workup which identified positive serologies for Bartonellaof a magnitude consistent with endocarditis. PCR of whole blood demonstratedBartonella as well. He underwent extensive cardiac evaluation which included atransesophageal echocardiogram that demonstrated 3+ tricuspid regurgitation, 3+aortic insufficiency, thickening of the aortic mitral curtain and posterior LNwall suggestive of active infection, and a small mobile echodensity within theRA.He was diagnosed with Bartonella prosthetic valve endocarditis. He was taken tothe operating room on 01/19 and underwent aortic valve with root debridement andreplacement with a homograft. Tricuspid valve repair was done. His pacemakerwas removed and a new epicardial system was placed. Vegetations were seen onall 3 aortic valve leaflets with a partially dehisced valve. Cultures werewithout growth. Histopathology was consistent with endocarditis. PCR of valvetissue demonstrated Bartonella species.His postoperative course was notable for the development of right hemothoraxwhich required a VATS for hematoma evacuation on 01/28/18.He gradually improved and was discharged on a regimen of ceftriaxone 2 g IVevery 24 hours and doxycycline 100 mg by mouth every 12 hours.On evaluation today he is doing quite well overall.PLAN:Stop ceftriaxoneContinue doxycycline 100 mg by mouth every 12 hours for another 6 weeks-Rx sentto his local pharmacyRemove Antelmo catheter as planned next weekFollow-up with me in 2 months, sooner as needed.Scar Olivas MD [facility] EP CARDIOVERSION EXTERNALon 06-10-2017 EP CARDIOVERSION EXTERNAL ? Successful cardioversion with 200 J synchronized shock of AF to sinus and A pacing ? Device check post cardioversion Recommendations Continue anticoagulation with eliquis for at least 4 weeks Normal [facility] CHEM 7on 06-09-2017 Anion gap 12 mmol/L Normal 7-17 [facility] Comment on above: Performed By: #### C BCDFM, CHM7C, HFPC, MGCC ####[place] [address]#### PTPTTC, FT4, FT3, TSH, A1CB ####[place] [address] [place] [address]#### XLIPOB ####Reference lab information reported with result BUN/Creatinine Ratio 22 mg/mg Normal [facility] Comment on above: Performed By: #### C BCDFM, CHM7C, HFPC, MGCC ####[place] [address]#### PTPTTC, FT4, FT3, TSH, A1CB ####[place] [address] [place] [address]#### XLIPOB ####Reference lab information reported with result Chloride 106 mmol/L Normal 98-108 [facility] Comment on above: Performed By: #### C BCDFM, CHM7C, HFPC, MGCC ####[place] [address]#### PTPTTC, FT4, FT3, TSH, A1CB ####[facility] [place] [id number] [place] [address]#### XLIPOB ####Reference lab information reported with result CO2 25 mmol/L Normal 22-30 [facility] Comment on above: Performed By: #### C BCDFM, CHM7C, HFPC, MGCC ####[place] [address]#### PTPTTC, FT4, FT3, TSH, A1CB ####[facility] [place], [place] [id number] [place] [address]#### XLIPOB ####Reference lab information reported with result Creatinine 0.85 mg/dL Normal 0.70-1.30 [facility] Comment on above: Performed By: #### C BCDFM, CHM7C, HFPC, MGCC ####[place] [address]#### PTPTTC, FT4, FT3, TSH, A1CB ####[facility] [place], [place] [id number] [place] [address]#### XLIPOB ####Reference lab information reported with result eGFR (non-black) mL/min/{1.73_m2} Normal >60 [facility] Comment on above: Performed By: #### C BCDFM, CHM7C, HFPC, MGCC ####[place] [address]#### PTPTTC, FT4, FT3, TSH, A1CB ####[facility] [place] [id number] [facility] [place] [id number]#### XLIPOB ####Reference lab information reported with result Glucose mass conc 88 mg/dL Normal 70-99 [facility] Comment on above: Performed By: #### C BCDFM, CHM7C, HFPC, MGCC ####[place] [address]#### PTPTTC, FT4, FT3, TSH, A1CB ####[facility] [place], [place] [id number] [place] [address]#### XLIPOB ####Reference lab information reported with result Osmolality 293 mOsm/kg Normal 278-305 [facility] Comment on above: Performed By: #### C BCDFM, CHM7C, HFPC, MGCC ####[place] [address]#### PTPTTC, FT4, FT3, TSH, A1CB ####[facility] [place], [place] [id number] [place] [address]#### XLIPOB ####Reference lab information reported with result Potassium molar conc 4.1 mmol/L Normal 3.5-5.0 [facility] Comment on above: Performed By: #### C BCDFM, CHM7C, HFPC, MGCC ####[place] [address]#### PTPTTC, FT4, FT3, TSH, A1CB ####[facility] [place], [place] [address] [address] [place] [address]#### XLIPOB ####Reference lab information reported with result Sodium 139 mmol/L Normal 133-143 [facility] Comment on above: Performed By: #### C BCDFM, CHM7C, HFPC, MGCC ####[place] [address]#### PTPTTC, FT4, FT3, TSH, A1CB ####[place] [address] [place] [address] [place] [address]#### XLIPOB ####Reference lab information reported with result Urea nitrogen 19 mg/dL Normal 7-22 [facility] Comment on above: Performed By: #### C BCDFM, CHM7C, HFPC, MGCC ####[place] [address]#### PTPTTC, FT4, FT3, TSH, A1CB ####[place] [address] [place] [address] [place] [address]#### XLIPOB ####Reference lab information reported with result ECHOCARDIOGRAM TRANSESOPHAGE AL (HCANDRAKANT)on 06-09-2017 ECHOCARDIOGRAM TRANSESOPHAGEAL (CHANDRAKANT) Patient: Frank White [facility] Rec#: [id number] : 1955 Date: 06/09/2017 Age: 62y Height: 193 cm / 75.3 inAccession#: [id number] Weight: 100.7 kg / 221.5 lbsSex: M BSA: 2.32Type: OutpatientLoc: Isra-Echo LabReferring: HOUMSSEMAHMOUDMDReading: BOO De Andaerforming: JANEEN De Andaurse: Leslie Montana RNRhythm: Demand Ventricular PaceHR: 70BP: 148/78 ____Transesophageal EchocardiogramConclusion s1. The left ventricular chamber size is normal.Regional wall motion isnormal. The estimated ejection fraction is 65%, consistent with normalsystolic function. 2. The right ventricular global systolic function is normal.3. The left atrium is enlarged.No thrombus is visualized within the leftatrium.4. The left 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 appears ligated (surgical clip per report),no thrombus in the mouth of the RUDY.. No definite communicationbetween the LA and RUDY, anatomy is distorted and challenging to seeexact location of clip.5. No thrombus is visualized in the right atrium.6. A bio-prosthetic pericardial aortic valve is present. [address] JudeTrifecta pericardial valve.7. There is trivial central aortic regurgitation. Leaflets appearnormal.8. There is mild to moderate tricuspid regurgitation.9. There is plaque visualized in the transverse aorta.Procedure Info:The indication for study was atrial fibrillation / atrial flutter. Thestudy quality is good. No TG views due to history of gastric bypassUltrasound device: WeTag. All staff members involved in the procedurecompleted a timeout prior to the start of the exam verifying correctpatient identity and correct procedure to be completed: 06/09/201716:15:26. Agitated saline was used to assess for intracardiac shunt. Indication:Pre cardioversion Findings L Ventricle:The left ventricular chamber size is normal. Regional wall motion isnormal. The estimated ejection fraction is 60-65%, consistent withnormal systolic function. R Ventricle:The right ventricular cavity size is normal. A pacemaker wire isvisualized in the right ventricle. The right ventricular global systolicfunction is normal. L Atrium:The left atrium is enlarged. No thrombus is visualized within the leftatrium. The left 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 appears ligated. R Atrium:The right atrial cavity size is normal. A pacemaker wire is seen in theRA. No thrombus is visualized in the right atrium. Interatrial Septum:The interatrial septum is normal. A PFO was seen by agitated salinecontrast. Mitral V:The mitral valve leaflets are mildly thickened. There is mild mitralregurgitation. MR vena contracta: 0.28. There is no evidence of mitralstenosis. Aortic V:A bio-prosthetic pericardial aortic valve is present. [address] JudeTrifecta pericardial valve on May 07, 2017 There is a trace of aorticregurgitation. There is no evidence of aortic stenosis. Tricuspid V:The tricuspid valve leaflets are normal. There is mild to moderatetricuspid regurgitation. There is no tricuspid stenosis. Pulmonic V:The pulmonic valve is not well visualized. There is a trace pulmonicregurgitation. There is no pulmonic stenosis. Aorta:The aortic root dimension is normal. There is plaque visualized in thetransverse aorta. There is evidence of grade 3 (atheroma <= 5mm)atheroma in the transverse aorta. There is no plaque visualized in thedescending aorta. Pericardium:The pericardium appears normal. CHANDRAKANT Detail:The procedure and risk were explained to the patient who consented tothe study. Color flow Doppler interrogation and agitated saline contrastecho were performed to assess for the presence of patent foramen ovale.CHANDRAKANT Probe: WeTag 3D CHANDRAKANT Inserted without difficulty. The probe waswell-tolerated. No complications were noted. Lidocaine gel 5% 1ml x 1was applied topically to bilateraly pharyngeal area. I was presentduring the procedure time-out, during the administration of sedationmedications, and during the initial post-procedure monitoring. The totaltime I provided [id number] service beginning with the administrationof sedation medications until the patient was sufficiently recoveredafter the procedure was 25 minutes. Fentanyl 50 mcg IVP administered forthe procedure. Midazolam 2 mg IVP administered for the procedure. Nosedation-specific complications noted. Diagnosis codes:49818 Echocardiography, transesophageal, real-time with imagedocumentation (2D) (with or without M-mode recording); including probeplacement, image acquisition, interpretation and report. 46914 Dopplerechocardiography color flow velocity mapping. 53508 Moderate sedationservices provided by the same physician or other qualified health careprofessional performing the diagnostic or therapeutic service that [facility] supports, requiring the presence of an independent trainedobserver to assist in the monitoring of the patient's level ofconsciousness and physiological status; initial 15 minutes ofintraservice time, patient age 5 years or older. [address] Moderatesedation services provided by the same physician or other qualifiedhealth health care consultant performing the diagnostic or therapeuticservice that the sedation supports, requiring the presence of anindependent trained observer to assist in the monitoring of thepatient's level of consciousness and physiological status; eachadditional 15 minutes intraservice time (List separately in addition tocode for primary service) ICD-10 Diagnosis Codes: *I48.1 Persistent atrial fibrillation*Z95.3 Presence of xenogenic heart valveMeasurements Name Value Normal Range MR vena contracta 0.28 cm - WallmotionBAS NormalBA NormalBAL NormalBIL NormalBI NormalBIS NormalMAS NormalMA NormalMAL NormalMIL NormalMI NormalMIS NormalAS NormalAA NormalAL NormalAI NormalAPEX Normal CPT (R) [employer]. All Rights Reserved. The codesdocumented in this report are preliminary and upon armature winder repair review may berevised to meet current compliance requirements. Normal [facility] PT*PTTon 06-09-2017 aPTT 44.7 s High 24.0-34.3 [facility] Comment on above: Performed By: #### C MAIA, [place], [facility], [facility] ####[place] [address]#### PTPTTC, FT4, FT3, TSH, A1CB ####[facility] [place] [address] [place] [address]#### XLIPOB ####Reference lab information reported with result INR Coag RelTime (PPP) 1.6 {INR} High 0.9-1.1 [facility] Comment on above: Performed By: #### C MAIA, [place], [facility], [facility] ####[place] [address]#### PTPTTC, FT4, FT3, TSH, A1CB ####[facility] [place], [place] [address]TpmynbAultman Orrville Hospital[address] [place], [place] [address]#### XLIPOB ####Reference lab information reported with result Prothrombin time (PT) Coag time (PPP) 18.7 s High 11.9-14.2 [facility] Comment on above: Performed By: #### C BCDFM, CHM7C, HFPC, MGCC ####[facility], [place] [address]#### PTPTTC, FT4, FT3, TSH, A1CB ####[facility] [place], [place] [address]XalhgqAultman Orrville Hospital[address] [place] [address]#### XLIPOB ####Reference lab information reported with result XR CHEST PA AND LATERALon XR CHEST PA AND LATERAL EXAM: XR CHEST P A AND LATERAL, 06/09/2017 10:46 AMCOMPARISON: May 15, 2017CLINICAL INDICATIONS: s/p AVRRELEVANT CLINICAL HISTORY: Z09:Encounter for follow-up examination aftercompleted treatment for conditions other than malignant neoplasmFINDINGS: (Adequate technique)Implanted Devices: Left subclavian dual-chamber pacer in place. Chest Wall: NormalHila: NormalMediastinum: NormalPleural Spaces: No pleural effusion. No pneumothorax.Lungs: Linear basilar atelectasis.Cardiac Silhouette: Stable. 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 clip. Thoracic Aorta: Normal Pulmonary Vessels: Normal, without PVHIMPRESSION:Cardiomega ly. Linear basilar atelectatic changes. Pacer in place. Postopchanges. Normal [facility] *Activated*Clot Time, pocon 05-21-2017 *Activated*Clot Time, poc 569 sec High 89-169 [facility] *Activated*Clot Time, poc 390 sec High 89-169 [facility] *Activated*Clot Time, poc 427 sec High 89-169 [facility] *Activated*Clot Time, poc 103 sec Normal 89-169 [facility] *Activated*Clot Time, poc 396 sec High 89-169 [facility] *Activated*Clot Time, poc 457 sec High 89-169 [facility] *Activated*Clot Time, poc 394 sec High 89-169 [facility] *Activated*Clot Time, poc 395 sec High 89-169 [facility] *Activated*Clot Time, poc 121 sec Normal 89-169 [facility] *Activated*Clot Time, poc 132 sec Normal 89-169 [facility] *Activated*Clot Time, poc 461 sec High 89-169 [facility] CHEM 7on 05-15-2017 Anion gap 11 mmol/L Normal - [facility] Comment on above: Performed By: #### C BCDFM, CHM7C, HFPC, MGCC ####[place] [address]#### PTPTTC, FT4, FT3, TSH, A1CB ####[place] [address]#### XLIPOB ####Reference lab information reported with result BUN/Creatinine Ratio 21 mg/mg Normal [facility] Comment on above: Performed By: #### C BCDFM, CHM7C, HFPC, MGCC ####[place] [address]#### PTPTTC, FT4, FT3, TSH, A1CB ####[place] [address]#### XLIPOB ####Reference lab information reported with result Chloride 100 mmol/L Normal 98-108 [facility] Comment on above: Performed By: #### C BCDFM, CHM7C, HFPC, MGCC ####[place] [address]#### PTPTTC, FT4, FT3, TSH, A1CB ####[facility] [place] [id number] [place], [place] [id number] [address] [place] [address]#### XLIPOB ####Reference lab information reported with result CO2 27 mmol/L Normal 22-30 [facility] Comment on above: Performed By: #### C BCDFM, CHM7C, HFPC, MGCC ####[place] [address]#### PTPTTC, FT4, FT3, TSH, A1CB ####[facility] [place] [address] [place], [place] [id number] [address] [place] [address]#### XLIPOB ####Reference lab information reported with result Creatinine 0.82 mg/dL Normal 0.70-1.30 [facility] Comment on above: Performed By: #### C BCDFM, CHM7C, HFPC, MGCC ####[place] [address]#### PTPTTC, FT4, FT3, TSH, A1CB ####[place] [address] [place] [address]NygcsvAultman Orrville Hospital[address] [place] [address]#### XLIPOB ####Reference lab information reported with result eGFR (non-black) mL/min/{1.73_m2} Normal >60 [facility] Comment on above: Performed By: #### C BCDFM, CHM7C, HFPC, MGCC ####[address] [place] [address]#### PTPTTC, FT4, FT3, TSH, A1CB ####[facility] [place], [place] [address] [address] [place] [address]#### XLIPOB ####Reference lab information reported with result Glucose mass conc 126 mg/dL High 70-99 [facility] Comment on above: Performed By: #### C BCDFM, CHM7C, HFPC, MGCC ####[place] [address]#### PTPTTC, FT4, FT3, TSH, A1CB ####[place] [address] [place], [place] [address] [address] [place] [address]#### XLIPOB ####Reference lab information reported with result Osmolality 286 mOsm/kg Normal 278-305 [facility] Comment on above: Performed By: #### C BCDFM, CHM7C, HFPC, MGCC ####[place] [address]#### PTPTTC, FT4, FT3, TSH, A1CB ####[address] [place] [address] [place] [address]#### XLIPOB ####Reference lab information reported with result Potassium molar conc 4.4 mmol/L Normal 3.5-5.0 [facility] Comment on above: Performed By: #### C BCDFM, CHM7C, HFPC, MGCC ####[place] [address]#### PTPTTC, FT4, FT3, TSH, A1CB ####[place] [address] [address] [place] [address]#### XLIPOB ####Reference lab information reported with result Sodium 134 mmol/L Normal 133-143 [facility] Comment on above: Performed By: #### C BCDFM, CHM7C, HFPC, MGCC ####[place] [address]#### PTPTTC, FT4, FT3, TSH, A1CB ####[facility] [place], [place] [address] [address] [place] [address]#### XLIPOB ####Reference lab information reported with result Urea nitrogen 17 mg/dL Normal 7-22 [facility] Comment on above: Performed By: #### C BCDFM, CHM7C, HFPC, MGCC ####[place] [address]#### PTPTTC, FT4, FT3, TSH, A1CB ####[facility] [place], [place] [address] [address] [place] [address]#### XLIPOB ####Reference lab information reported with result HEMOGRAM (CBC and Platelet)o n 05-15-2017 Erythrocytes (RBC) 3.58 10*6/uL Low 4.63-6.08 [facility] Comment on above: Performed By: #### C BCDFM, CHM7C, HFPC, MGCC ####[place] [address]#### PTPTTC, FT4, FT3, TSH, A1CB ####[facility] [place], [place] [address] [address] [place] [address]#### XLIPOB ####Reference lab information reported with result Erythrocytes (RBC) 15.6 % High 11.6-14.4 [facility] Comment on above: Performed By: #### C BCDFM, CHM7C, [facility], CC ####[place] [address]#### PTPTTC, FT4, FT3, TSH, A1CB ####[place] [address] [place], [place] [address] [place] [address]#### XLIPOB ####Reference lab information reported with result Hematocrit (HCT) 34.0 % Low 40.1-51.0 [facility] Comment on above: Performed By: #### C BCDFM, CHM7C, [facility], [facility] ####[place] [address]#### PTPTTC, FT4, FT3, TSH, A1CB ####[facility] [place], [place] [address] [address] [place] [address]#### XLIPOB ####Reference lab information reported with result Hemoglobin mass conc (Bld) 11.4 g/dL Low 13.7-17.5 [facility] Comment on above: Performed By: #### C BCDFM, CHM7C, [facility], [facility] ####[place] [address]#### PTPTTC, FT4, FT3, TSH, A1CB ####[place] [address] [place] [address] [place] [address]#### XLIPOB ####Reference lab information reported with result Hemoglobin mass conc (Bld) 31.8 pg Normal 25.7-32.2 [facility] Comment on above: Performed By: #### C BCDFM, CHM7C, HFPC, MGCC ####[place] [address]#### PTPTTC, FT4, FT3, TSH, A1CB ####[facility] [place], [place] [address] [address] [place] [address]#### XLIPOB ####Reference lab information reported with result Hemoglobin mass conc (Bld) 33.5 g/dL Normal 32.3-36.5 [facility] Comment on above: Performed By: #### C BCDFM, CHM7C, HFPC, MGCC ####[place] [address]#### PTPTTC, FT4, FT3, TSH, A1CB ####[facility] [place], [place] [address] [address] [place] [address]#### XLIPOB ####Reference lab information reported with result MCV 95.0 fL High 79.0-92.2 [facility] Comment on above: Performed By: #### C BCDFM, CHM7C, HFPC, CC ####[place] [address]#### PTPTTC, FT4, FT3, TSH, A1CB ####[facility] [place], [place] [address] [address] [place] [address]#### XLIPOB ####Reference lab information reported with result Nucleated erythrocytes 0.0 /100 WBC Normal 0.0-0.2 [facility] Comment on above: Performed By: #### C BCDFM, CHM7C, HFPC, MGCC ####[place] [address]#### PTPTTC, FT4, FT3, TSH, A1CB ####[place] [address] [place], [place] [address] [place] [address]#### XLIPOB ####Reference lab information reported with result Platelet mean volume (PMV) 9.2 fL Low 9.4-12.4 [facility] Comment on above: Performed By: #### C BCDFM, CHM7C, HFPC, MGCC ####[place] [address]#### PTPTTC, FT4, FT3, TSH, A1CB ####[address] [place] [address]#### XLIPOB ####Reference lab information reported with result Platelets 236 10*3/uL Normal 163-337 [facility] Comment on above: Performed By: #### C BCDFM, CHM7C, HFPC, MGCC ####[place] [address]#### PTPTTC, FT4, FT3, TSH, A1CB ####[place] [address]#### XLIPOB ####Reference lab information reported with result WBC (Leukocytes) 7.65 10*3/uL Normal 4.23-9.07 [facility] Comment on above: Performed By: #### C BCDFM, CHM7C, HFPC, MGCC ####[place] [address]#### PTPTTC, FT4, FT3, TSH, A1CB ####[facility] [place], [place] [address] [place] [address]#### XLIPOB ####Reference lab information reported with result Magnesiumon 05-15-2017 Magnesium 2.1 mg/dL Normal 1.6-2.6 [facility] Comment on above: Performed By: #### C MAIA, TWANM7C, HFPC, MGCC ####[place] [address]#### PTPTTC, FT4, FT3, TSH, A1CB ####[place] [address]#### XLIPOB ####Reference lab information reported with result PT/INR BATTERYon 05-15-2017 INR Coag RelTime (PPP) 1.2 {INR} High 0.9-1.1 [facility] Comment on above: Performed By: #### C MAIA, [place], HFPC, MGCC ####[place] [address]#### PTPTTC, FT4, FT3, TSH, A1CB ####[place] [address]#### XLIPOB ####Reference lab information reported with result Prothrombin time (PT) Coag time (PPP) 15.3 s High 11.9-14.2 [facility] Comment on above: Performed By: #### C MAIA, TWANM7C, HFPC, MGCC ####[place] [address]#### PTPTTC, FT4, FT3, TSH, A1CB ####[address] [place] [address]#### XLIPOB ####Reference lab information reported with result XR CHEST PORTABLEon 05-15-19 XR CHEST PORTABLE EXAM: XR CHEST SABRINA KELLY, 05/15/2017 07:18 AMCOMPARISON: Portable chest radiograph from May 12, 2017.CLINICAL INDICATIONS: eval effusionFINDINGS: (Adequate technique)Life Support Devices: NormalChest Wall: StableHila: NormalMediastinum: NormalPleural Spaces: Stable left pleural effusion. Slight blunting of the rightcostophrenic angle suggests small effusion developing. No definitepneumothorax.Leah gs: Stable bibasilar airspace disease.Cardiac Silhouette: Stable mild enlargement. Thoracic Aorta: NormalPulmonary Vessels: Normal, without PVHIMPRESSION:1. Stable left pleural effusion. Suggestion of small right pleural effusiondeveloping.2. Stable bibasilar airspace disease. I personally viewed and interpreted these images and I have reviewed andapproved this report. Normal [facility] C Reactive Proteinon 018 C reactive protein (CRP) 64.00 mg/L High <10.00 [facility] Comment on above: Performed By: #### C BCDFM, CHM7C, HFPC, MGCC ####[place] [address]#### PTPTTC, FT4, FT3, TSH, A1CB ####[facility] [place] [address] [place] [address] [place] [address]#### XLIPOB ####Reference lab information reported with result CHEM 705-14-2017 Anion gap 6 mmol/L Low 10-06 [facility] Comment on above: Performed By: #### C BCDFM, CHM7C, HFPC, MGCC ####[place] [address]#### PTPTTC, FT4, FT3, TSH, A1CB ####[facility] [place] [address]CyskyoAultman Orrville Hospital[address] [place] [address]#### XLIPOB ####Reference lab information reported with result BUN/Creatinine Ratio 22 mg/mg Normal [facility] Comment on above: Performed By: #### C BCDFM, CHM7C, HFPC, MGCC ####[place] [id number]#### PTPTTC, FT4, FT3, TSH, A1CB ####[facility] [place], [place] [address] [address] [place] [address]#### XLIPOB ####Reference lab information reported with result Chloride 101 mmol/L Normal 98-108 [facility] Comment on above: Performed By: #### C BCDFM, CHM7C, HFPC, MGCC ####[place] [address]#### PTPTTC, FT4, FT3, TSH, A1CB ####[facility] [place], [place] [address] [place], [place] [address]#### XLIPOB ####Reference lab information reported with result CO2 30 mmol/L Normal 22-30 [facility] Comment on above: Performed By: #### C BCDFM, CHM7C, HFPC, MGCC ####[place] [id number]#### PTPTTC, FT4, FT3, TSH, A1CB ####[facility] [place] [address]OusmkwAultman Orrville Hospital[address] [place], [place] [address]#### XLIPOB ####Reference lab information reported with result Creatinine 0.74 mg/dL Normal 0.70-1.30 [facility] Comment on above: Performed By: #### C BCDFM, CHM7C, HFPC, MGCC ####[place] [address]#### PTPTTC, FT4, FT3, TSH, A1CB ####[facility] [place], [place] [address] [address] [place] [address]#### XLIPOB ####Reference lab information reported with result eGFR (non-black) mL/min/{1.73_m2} Normal >60 [facility] Comment on above: Performed By: #### C BCDFM, CHM7C, HFPC, MGCC ####[place] [address]#### PTPTTC, FT4, FT3, TSH, A1CB ####[facility] [place], [place] [address] [place] [address]#### XLIPOB ####Reference lab information reported with result Glucose mass conc 132 mg/dL High 70-99 [facility] Comment on above: Performed By: #### C BCDFM, CHM7C, HFPC, MGCC ####[place] [address]#### PTPTTC, FT4, FT3, TSH, A1CB ####[place] [address] [place], [place] [address] [place] [address]#### XLIPOB ####Reference lab information reported with result Osmolality 283 mOsm/kg Normal 278-305 [facility] Comment on above: Performed By: #### C BCDFM, CHM7C, HFPC, MGCC ####[place] [id number]#### PTPTTC, FT4, FT3, TSH, A1CB ####[facility] [place], [place] [address] [place] [address]#### XLIPOB ####Reference lab information reported with result Potassium molar conc 4.8 mmol/L Normal 3.5-5.0 [facility] Comment on above: Performed By: #### C BCDFM, CHM7C, HFPC, MGCC ####[place] [address]#### PTPTTC, FT4, FT3, TSH, A1CB ####[facility] [place], [place] [address] [place] [address]#### XLIPOB ####Reference lab information reported with result Sodium 132 mmol/L Low 133-143 [facility] Comment on above: Performed By: #### C BCDFM, CHM7C, HFPC, MGCC ####[place] [address]#### PTPTTC, FT4, FT3, TSH, A1CB ####[place] [address] [place], [place] [address] [place] [address]#### XLIPOB ####Reference lab information reported with result Urea nitrogen 16 mg/dL Normal 7-22 [facility] Comment on above: Performed By: #### C BCDFM, CHM7C, HFPC, MGCC ####[place] [address]#### PTPTTC, FT4, FT3, TSH, A1CB ####[facility] [place], [place] [address]ZhdahaSarah [place] [address] [place] [address]#### XLIPOB ####Reference lab information reported with result EP PROCEDURE - EPS/ABLATION/ DEVICEon 05-14-2017 EP PROCEDURE - EPS/ABLATION/DEVICE ? Successful PPM implantation This is a 62 y.o. male with a history of s/p recent SAVR who was referred for PPM. Atrial lead was recommended due to prevent pacemaker syndrome. MRI compatible device used due to age. ECG showed afib. EF by echo > 50%.Conclusions: Successful implantation of [employer] PPM with adequate pacing threshold, sensing and lead impedance. Recommendations: 1. Standard post-device care2. Chest X-ray. 3. Device interrogation in the morning. 4. Remove outer dressing after 48 hours. Leave steri-strips intact for 7-10 days, then remove if it does not fall off by itself. 5. Device follow up as scheduled. 6. Hold heparin / anticoagulation for 24 hours. 7. F/up with device clinic in one month. Currently set at DDDR . Atrial Fibrillation management per EP consult service. (DCCV in 4 weeks after discharged) Normal [facility] HEMOGRAM (CBC and Platelet)o n 05-14-2017 Erythrocytes (RBC) 15.9 % High 11.6-14.4 [facility] Comment on above: Performed By: #### C BCDFM, CHM7C, [facility], [facility] ####[facility], [place] [address]#### PTPTTC, FT4, FT3, TSH, A1CB ####U [facility] [place] [address]MzwcrvAultman Orrville Hospital[address] [place] [address]#### XLIPOB ####Reference lab information reported with result Erythrocytes (RBC) 3.45 10*6/uL Low 4.63-6.08 [facility] Comment on above: Performed By: #### C BCDFM, CHM7C, HFPC, MGCC ####[place] [address]#### PTPTTC, FT4, FT3, TSH, A1CB ####[facility] [place], [place] [address] [place] [address]#### XLIPOB ####Reference lab information reported with result Hematocrit (HCT) 32.8 % Low 40.1-51.0 [facility] Comment on above: Performed By: #### C BCDFM, CHM7C, HFPC, MGCC ####[place] [address]#### PTPTTC, FT4, FT3, TSH, A1CB ####[place] [address] [place], [place] [id number] [address] [place] [address]#### XLIPOB ####Reference lab information reported with result Hemoglobin mass conc (Bld) 10.9 g/dL Low 13.7-17.5 [facility] Comment on above: Performed By: #### C BCDFM, CHM7C, HFPC, MGCC ####[place] [address]#### PTPTTC, FT4, FT3, TSH, A1CB ####[place] [address] [place], [place] [address] [address] [place] [address]#### XLIPOB ####Reference lab information reported with result Hemoglobin mass conc (Bld) 33.2 g/dL Normal 32.3-36.5 [facility] Comment on above: Performed By: #### C BCDFM, CHM7C, HFPC, MGCC ####[facility] [place] [address]#### PTPTTC, FT4, FT3, TSH, A1CB ####[facility] [place] [address]23ZkddjjAultman Orrville Hospital[address] [place] [address]#### XLIPOB ####Reference lab information reported with result Hemoglobin mass conc (Bld) 31.6 pg Normal 25.7-32.2 [facility] Comment on above: Performed By: #### C BCDFM, CHM7C, HFPC, MGCC ####[place] [address]#### PTPTTC, FT4, FT3, TSH, A1CB ####[place] [address] [place], [place] [address] [place] [address]#### XLIPOB ####Reference lab information reported with result MCV 95.1 fL High 79.0-92.2 [facility] Comment on above: Performed By: #### C BCDFM, CHM7C, HFPC, CC ####[place] [address]#### PTPTTC, FT4, FT3, TSH, A1CB ####[place] [address] [place], [place] [id number] [address] [place] [address]#### XLIPOB ####Reference lab information reported with result Nucleated erythrocytes 0.0 /100 WBC Normal 0.0-0.2 [facility] Comment on above: Performed By: #### C BCDFM, CHM7C, HFPC, MGCC ####[place] [address]#### PTPTTC, FT4, FT3, TSH, A1CB ####[facility] [place] [address]DuxzjbAultman Orrville Hospital[address] [place] [address]#### XLIPOB ####Reference lab information reported with result Platelet mean volume (PMV) 9.2 fL Low 9.4-12.4 [facility] Comment on above: Performed By: #### C BCDFM, CHM7C, HFPC, MGCC ####[place] [address]#### PTPTTC, FT4, FT3, TSH, A1CB ####[facility] [place] [address] [place] [address]#### XLIPOB ####Reference lab information reported with result Platelets 216 10*3/uL Normal 163-337 [facility] Comment on above: Performed By: #### C BCDFM, CHM7C, HFPC, MGCC ####[place] [address]#### PTPTTC, FT4, FT3, TSH, A1CB ####[place] [address] [place] [address] [place] [address]#### XLIPOB ####Reference lab information reported with result WBC (Leukocytes) 7.55 10*3/uL Normal 4.23-9.07 [facility] Comment on above: Performed By: #### C BCDFM, CHM7C, HFPC, MGCC ####[place] [address]#### PTPTTC, FT4, FT3, TSH, A1CB ####[address] [place], [place] [id number] [place] [address]#### XLIPOB ####Reference lab information reported with result Magnesiumon 05-14-2017 Magnesium 2.0 mg/dL Normal 1.6-2.6 [facility] Comment on above: Performed By: #### C EVERETT CARVALHO, [facility], [facility] ####[place] [address]#### PTPTTC, FT4, FT3, TSH, A1CB ####[place] [address] [place], [place] [address] [place] [address]#### XLIPOB ####Reference lab information reported with result PT/INR BATTERYon 05-14-2017 INR Coag RelTime (PPP) 1.1 {INR} Normal 0.9-1.1 [facility] Comment on above: Performed By: #### C EVERETT CARVALHO, [facility], [facility] ####[place] [address]#### PTPTTC, FT4, FT3, TSH, A1CB ####[place] [address] [address] [place] [address]#### XLIPOB ####Reference lab information reported with result Prothrombin time (PT) Coag time (PPP) 14.4 s High 11.9-14.2 [facility] Comment on above: Performed By: #### C EVERETT CARVALHO, [facility], [facility] ####[place] [address]#### PTPTTC, FT4, FT3, TSH, A1CB ####[place] [address] [place], [place] [address] [place] [address]#### XLIPOB ####Reference lab information reported with result Prealbuminon 05-14-2017 Prealbumin 8 mg/dL Low 17-34 [facility] Comment on above: Performed By: #### C BCDFM, CHM7C, HFPC, MGCC ####[facility], [address] [place] [address]#### PTPTTC, FT4, FT3, TSH, A1CB ####[facility] [place], [place] [address]WbkzumAultman Orrville Hospital[address] [place], [place] [address]#### XLIPOB ####Reference lab information reported with result XR CHEST PA AND LATERALon XR CHEST PA AND LATERAL EXAM: XR CHEST P A AND LATERAL, 05/13/2017 21:20 PMCOMPARISON: Chest radiograph dated 05/13/2017CLINICAL INDICATIONS: Rule out Pneumothorax Following Device ImplantationFINDINGS: (Adequate technique)Implanted Devices: Interval placement of a left subclavian approachdual-chamber cardiac pacing device with leads terminating projected over theright atrium and ventricle. Epicardial pacing wires are in place. The rightinternal jugular approach sheath has been removed.Chest Wall: No appreciable acute displaced fracture. Median sternotomy wiresare intact and aligned. Multiple remote right-sided rib fractures.Charlene: NormalMediastinum: NormalPleural Spaces: Small bilateral layering pleural effusions persist. Nopneumothorax.Lungs: Persistent left greater than right basilar opacities.Cardiac Silhouette: Mild enlargement of the cardiac silhouette is similar toprior imaging. Status post aortic valve replacement and left 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 clip. Thoracic Aorta: Calcific atherosclerosis with normal contour.Pulmonary Vessels: Normal, without PVHIMPRESSION:1. No evidence of postprocedural pneumothorax following placement of a leftsubclavian approach dual-chamber cardiac pacing device.2. Epicardial pacing wires are also present.3. Persistent small bilateral layering pleural effusions with associatedbibasilar atelectasis, left greater than right. A superimposed consolidativeprocess, such as pneumonia, cannot be excluded radiographically. Normal [facility] XR CHEST PORTABLEon 05-14-19 XR CHEST PORTABLE EXAM: XR CHEST SABRINA KELLY, 05/14/2017 05:28 AMCOMPARISON: May 13, 2017CLINICAL INDICATIONS: pleural effusionRELEVANT CLINICAL HISTORY:FINDINGS: (Adequate technique)Mild airspace disease persists in the right base. Worsening airspace diseasein the left base with small pleural effusion. Suggestion of some mild airspacedisease developing in the left upper lobe. No pneumothorax. Stablecardiomegaly. Sternotomy wires and left-sided ICD in place.IMPRESSION:Small left pleural effusion with mildly worsening basilar airspace disease. Stable mild airspace disease in the right base. Suggestion of new airspacedisease developing in the left upper lobe. Normal [facility] CHEM 7on 05-13-2017 Anion gap 13 mmol/L Normal 7-17 [facility] Comment on above: Performed By: #### C BCDFM, CHM7C, [facility], [facility] ####[place] [address]#### PTPTTC, FT4, FT3, TSH, A1CB ####[place] [address] [address] [address]#### XLIPOB ####Reference lab information reported with result BUN/Creatinine Ratio 27 mg/mg Normal [facility] Comment on above: Performed By: #### C BCDFM, CHM7C, [facility], MG ####[place] [address]#### PTPTTC, FT4, FT3, TSH, A1CB ####[place] [address] [address] [address]#### XLIPOB ####Reference lab information reported with result Chloride 103 mmol/L Normal 98-108 [facility] Comment on above: Performed By: #### C BCDFM, CHM7C, HFPC, MGCC ####[place] [address]#### PTPTTC, FT4, FT3, TSH, A1CB ####[facility] [place] [address]QmbndvAultman Orrville Hospital[address] [place] [address]#### XLIPOB ####Reference lab information reported with result CO2 26 mmol/L Normal 22-30 [facility] Comment on above: Performed By: #### C BCDFM, CHM7C, HFPC, MGCC ####[place] [address]#### PTPTTC, FT4, FT3, TSH, A1CB ####[facility] [place] [address]DbiesjAultman [facility]rville [facility] [place] [address]#### XLIPOB ####Reference lab information reported with result Creatinine 0.70 mg/dL Normal 0.70-1.30 [facility] Comment on above: Performed By: #### C BCDFM, CHM7C, HFPC, MGCC ####[place] [address]#### PTPTTC, FT4, FT3, TSH, A1CB ####[facility] [place] [address]IjfmvbAultman Orrville Hospital[address] [place] [address]#### XLIPOB ####Reference lab information reported with result eGFR (non-black) mL/min/{1.73_m2} Normal >60 [facility] Comment on above: Performed By: #### C BCDFM, CHM7C, HFPC, MGCC ####[place] [id number]#### PTPTTC, FT4, FT3, TSH, A1CB ####[facility] [place], [place] [address] [address] [place] [address]#### XLIPOB ####Reference lab information reported with result Glucose mass conc 130 mg/dL High 70-99 [facility] Comment on above: Performed By: #### C BCDFM, CHM7C, HFPC, MGCC ####[place] [address]#### PTPTTC, FT4, FT3, TSH, A1CB ####[facility] [place], [place] [address] [address] [place] [address]#### XLIPOB ####Reference lab information reported with result Osmolality 292 mOsm/kg Normal 278-305 [facility] Comment on above: Performed By: #### C BCDFM, CHM7C, HFPC, MGCC ####[place] [address]#### PTPTTC, FT4, FT3, TSH, A1CB ####[facility] [place], [place] [address] [place] [address]#### XLIPOB ####Reference lab information reported with result Potassium molar conc 4.5 mmol/L Normal 3.5-5.0 [facility] Comment on above: Performed By: #### C BCDFM, CHM7C, HFPC, MGCC ####[place] [address]#### PTPTTC, FT4, FT3, TSH, A1CB ####[facility] [place], [place] [address] [place] [address]#### XLIPOB ####Reference lab information reported with result Sodium 137 mmol/L Normal 133-143 [facility] Comment on above: Performed By: #### C BCDFM, CHM7C, HFPC, MGCC ####[place] [address]#### PTPTTC, FT4, FT3, TSH, A1CB ####[facility] [place], [place] [address] [place] [address]#### XLIPOB ####Reference lab information reported with result Urea nitrogen 19 mg/dL Normal 7-22 [facility] Comment on above: Performed By: #### C BCDFM, CHM7C, HFPC, MGCC ####[place] [address]#### PTPTTC, FT4, FT3, TSH, A1CB ####[facility] [place], [place] [address] [place] [address]#### XLIPOB ####Reference lab information reported with result HEMOGRAM (CBC and Platelet)o n 05-13-2017 Erythrocytes (RBC) 3.57 10*6/uL Low 4.63-6.08 [facility] Comment on above: Performed By: #### C BCDFM, CHM7C, HFPC, MGCC ####[place] [address]#### PTPTTC, FT4, FT3, TSH, A1CB ####[facility] [place], [place] [address] [address] [place] [address]#### XLIPOB ####Reference lab information reported with result Erythrocytes (RBC) 15.9 % High 11.6-14.4 [facility] Comment on above: Performed By: #### C BCDFM, CHM7C, [facility], CC ####[place] [address]#### PTPTTC, FT4, FT3, TSH, A1CB ####[place] [address]#### XLIPOB ####Reference lab information reported with result Hematocrit (HCT) 33.7 % Low 40.1-51.0 [facility] Comment on above: Performed By: #### C BCDFM, CHM7C, HFPC, CC ####[place] [address]#### PTPTTC, FT4, FT3, TSH, A1CB ####[address] [place] [address]#### XLIPOB ####Reference lab information reported with result Hemoglobin mass conc (Bld) 31.7 pg Normal 25.7-32.2 [facility] Comment on above: Performed By: #### C BCDFM, CHM7C, [facility], [facility] ####[place] [address]#### PTPTTC, FT4, FT3, TSH, A1CB ####[place] [address]#### XLIPOB ####Reference lab information reported with result Hemoglobin mass conc (Bld) 33.5 g/dL Normal 32.3-36.5 [facility] Comment on above: Performed By: #### C BCDFM, CHM7C, HFPC, CC ####[place] [address]#### PTPTTC, FT4, FT3, TSH, A1CB ####[facility] [place], [place] [address] [place] [address]#### XLIPOB ####Reference lab information reported with result Hemoglobin mass conc (Bld) 11.3 g/dL Low 13.7-17.5 [facility] Comment on above: Performed By: #### C BCDFM, CHM7C, HFPC, CC ####[place] [address]#### PTPTTC, FT4, FT3, TSH, A1CB ####[facility] [place], [place] [address] [address] [place] [address]#### XLIPOB ####Reference lab information reported with result MCV 94.4 fL High 79.0-92.2 [facility] Comment on above: Performed By: #### C BCDFM, CHM7C, HFPC, CC ####[place] [address]#### PTPTTC, FT4, FT3, TSH, A1CB ####[place] [address] [place], [place] [address] [place] [address]#### XLIPOB ####Reference lab information reported with result Nucleated erythrocytes 0.0 /100 WBC Normal 0.0-0.2 [facility] Comment on above: Performed By: #### C BCDFM, CHM7C, HFPC, CC ####[place] [address]#### PTPTTC, FT4, FT3, TSH, A1CB ####[place] [address] [place] [address]#### XLIPOB ####Reference lab information reported with result Platelet mean volume (PMV) 9.5 fL Normal 9.4-12.4 [facility] Comment on above: Performed By: #### C BCDFM, CHM7C, HFPC, MGCC ####[place] [address]#### PTPTTC, FT4, FT3, TSH, A1CB ####[place] [address]#### XLIPOB ####Reference lab information reported with result Platelets 206 10*3/uL Normal 163-337 [facility] Comment on above: Performed By: #### C MAIA, CHM7C, HFPC, MGCC ####[place] [address]#### PTPTTC, FT4, FT3, TSH, A1CB ####[place] [address]#### XLIPOB ####Reference lab information reported with result WBC (Leukocytes) 6.95 10*3/uL Normal 4.23-9.07 [facility] Comment on above: Performed By: #### C BCDFM, CHM7C, HFPC, MGCC ####[place] [address]#### PTPTTC, FT4, FT3, TSH, A1CB ####[facility] [address] [place], [place] [address] [place] [address]#### XLIPOB ####Reference lab information reported with result Magnesiumon 05-13-2017 Magnesium 2.0 mg/dL Normal 1.6-2.6 [facility] Comment on above: Performed By: #### C BCDFM, CHM7C, HFPC, MGCC ####[place] [address]#### PTPTTC, FT4, FT3, TSH, A1CB ####[place] [address] [place] [address] [place] [address]#### XLIPOB ####Reference lab information reported with result XR CHEST PORTABLEon 05-13-19 XR CHEST PORTABLE EXAM: XR CHEST SABRINA BLE, 05/13/2017 05:44 AMCOMPARISON: May 12, 2017CLINICAL INDICATIONS: post op heart surgeryRELEVANT CLINICAL HISTORY:FINDINGS: (Adequate technique)Bibasilar airspace disease again noted without interval change. Probable smallpleural effusions, left greater than right again noted. No pneumothorax.Stable cardiac megaly with left 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 clip. Sternotomy wires inplace.IMPRESSION:No significant change with bibasilar airspace disease and small effusions,left greater than Normal [facility] CHEM 7on 05-12-2017 Anion gap 8 mmol/L Normal - [facility] Comment on above: Performed By: #### C BCDFM, CHM7C, HFPC, MGCC ####[place] [address]#### PTPTTC, FT4, FT3, TSH, A1CB ####[facility] [place] [address] [place], [place] [address] [place] [address]#### XLIPOB ####Reference lab information reported with result BUN/Creatinine Ratio 29 mg/mg Normal [facility] Comment on above: Performed By: #### C BCDFM, CHM7C, HFPC, MGCC ####[place] [address]#### PTPTTC, FT4, FT3, TSH, A1CB ####[facility] [place], [place] [address] [place] [address]#### XLIPOB ####Reference lab information reported with result Chloride 102 mmol/L Normal 98-108 [facility] Comment on above: Performed By: #### C BCDFM, CHM7C, HFPC, MGCC ####[place] [address]#### PTPTTC, FT4, FT3, TSH, A1CB ####[facility] [place], [place] [address] [place] [address]#### XLIPOB ####Reference lab information reported with result CO2 28 mmol/L Normal 22-30 [facility] Comment on above: Performed By: #### C BCDFM, CHM7C, HFPC, MGCC ####[place] [address]#### PTPTTC, FT4, FT3, TSH, A1CB ####[facility] [place], [place] [address] [place] [address]#### XLIPOB ####Reference lab information reported with result Creatinine 0.73 mg/dL Normal 0.70-1.30 [facility] Comment on above: Performed By: #### C BCDFM, CHM7C, HFPC, MGCC ####[facility], [address] [address]#### PTPTTC, FT4, FT3, TSH, A1CB ####[facility] [place] [address]XiuzidAultman Orrville Hospital[address] [place] [address]#### XLIPOB ####Reference lab information reported with result eGFR (non-black) mL/min/{1.73_m2} Normal >60 [facility] Comment on above: Performed By: #### C BCDFM, CHM7C, HFPC, MGCC ####[place] [address]#### PTPTTC, FT4, FT3, TSH, A1CB ####[facility] [place], [place] [address] [place] [address]#### XLIPOB ####Reference lab information reported with result Glucose mass conc 99 mg/dL Normal 70-99 [facility] Comment on above: Performed By: #### C BCDFM, CHM7C, HFPC, MGCC ####[place] [address]#### PTPTTC, FT4, FT3, TSH, A1CB ####[facility] [place], [place] [address]10[facility] [place], [place] [address]#### XLIPOB ####Reference lab information reported with result Osmolality 285 mOsm/kg Normal 278-305 [facility] Comment on above: Performed By: #### C BCDFM, CHM7C, HFPC, MGCC ####[place] [address]#### PTPTTC, FT4, FT3, TSH, A1CB ####[facility] [address] [place] [address]LtdsxqAultman Orrville Hospital[address] [place] [address]#### XLIPOB ####Reference lab information reported with result Potassium molar conc 4.3 mmol/L Normal 3.5-5.0 [facility] Comment on above: Performed By: #### C BCDFM, CHM7C, HFPC, MGCC ####[place] [id number]#### PTPTTC, FT4, FT3, TSH, A1CB ####[facility] [place], [place] [address] [place] [address]#### XLIPOB ####Reference lab information reported with result Sodium 134 mmol/L Normal 133-143 [facility] Comment on above: Performed By: #### C BCDFM, CHM7C, HFPC, MGCC ####[place] [id number]#### PTPTTC, FT4, FT3, TSH, A1CB ####[facility] [place] [address]GjrwoqAultman Orrville Hospital[address] [place] [address]#### XLIPOB ####Reference lab information reported with result Urea nitrogen 21 mg/dL Normal 7-22 [facility] Comment on above: Performed By: #### C BCDFM, CHM7C, HFPC, MGCC ####[place] [id number]#### PTPTTC, FT4, FT3, TSH, A1CB ####[facility] [place] [address]UeuewxAultman Orrville Hospital[address] [place], [place] [address]#### XLIPOB ####Reference lab information reported with result HEMOGRAM (CBC and Platelet)o n 05-12-2017 Erythrocytes (RBC) 3.41 10*6/uL Low 4.63-6.08 [facility] Comment on above: Performed By: #### C JONATHANDFM, CHM7C, [facility], MGCC ####[place] [address]#### PTPTTC, FT4, FT3, TSH, A1CB ####[place] [address] [place], [place] [address] [place] [address]#### XLIPOB ####Reference lab information reported with result Erythrocytes (RBC) 16.1 % High 11.6-14.4 [facility] Comment on above: Performed By: #### C JONATHANDFNaz, TWANM7C, [facility], [facility] ####[place] [address]#### PTPTTC, FT4, FT3, TSH, A1CB ####[place] [address] [place] [address]#### XLIPOB ####Reference lab information reported with result Hematocrit (HCT) 32.7 % Low 40.1-51.0 [facility] Comment on above: Performed By: #### C BCDFM, CHM7C, [facility], [facility] ####[place] [address]#### PTPTTC, FT4, FT3, TSH, A1CB ####[place] [address] [place] [address] [place] [address]#### XLIPOB ####Reference lab information reported with result Hemoglobin mass conc (Bld) 10.9 g/dL Low 13.7-17.5 [facility] Comment on above: Performed By: #### C BCDFM, CHM7C, HFPC, MGCC ####[place] [address]#### PTPTTC, FT4, FT3, TSH, A1CB ####[place] [address] [place] [address] [place] [address]#### XLIPOB ####Reference lab information reported with result Hemoglobin mass conc (Bld) 32.0 pg Normal 25.7-32.2 [facility] Comment on above: Performed By: #### C BCDFM, CHM7C, HFPC, MGCC ####[place] [address]#### PTPTTC, FT4, FT3, TSH, A1CB ####[place] [address] [place], [place] [address] [place] [address]#### XLIPOB ####Reference lab information reported with result Hemoglobin mass conc (Bld) 33.3 g/dL Normal 32.3-36.5 [facility] Comment on above: Performed By: #### C BCDFM, CHM7C, HFPC, MGCC ####[place] [address]#### PTPTTC, FT4, FT3, TSH, A1CB ####[place] [address]#### XLIPOB ####Reference lab information reported with result MCV 95.9 fL High 79.0-92.2 [facility] Comment on above: Performed By: #### C BCDFM, CHM7C, HFPC, MGCC ####[place] [address]#### PTPTTC, FT4, FT3, TSH, A1CB ####[facility] [place] [address]QbnaskAultman Orrville Hospital[address] [place] [address]#### XLIPOB ####Reference lab information reported with result Nucleated erythrocytes 0.0 /100 WBC Normal 0.0-0.2 [facility] Comment on above: Performed By: #### C BCDFM, CHM7C, HFPC, MGCC ####[place] [address]#### PTPTTC, FT4, FT3, TSH, A1CB ####[facility] [place], [place] [address] [place] [address]#### XLIPOB ####Reference lab information reported with result Platelet mean volume (PMV) 9.6 fL Normal 9.4-12.4 [facility] Comment on above: Performed By: #### C BCDFM, CHM7C, HFPC, MGCC ####[place] [address]#### PTPTTC, FT4, FT3, TSH, A1CB ####[facility] [place], [place] [address] [address] [place] [address]#### XLIPOB ####Reference lab information reported with result Platelets 180 10*3/uL Normal 163-337 [facility] Comment on above: Performed By: #### C BCDFM, CHM7C, HFPC, MGCC ####[place] [address]#### PTPTTC, FT4, FT3, TSH, A1CB ####[facility] [place] [address]#### XLIPOB ####Reference lab information reported with result WBC (Leukocytes) 6.82 10*3/uL Normal 4.23-9.07 [facility] Comment on above: Performed By: #### C BCDFM, CHM7C, HFPC, MGCC ####[place] [address]#### PTPTTC, FT4, FT3, TSH, A1CB ####[place] [address] [place] [address]#### XLIPOB ####Reference lab information reported with result Magnesiumon 05-12-2017 Magnesium 2.0 mg/dL Normal 1.6-2.6 [facility] Comment on above: Performed By: #### C BCDFM, CHM7C, HFPC, MGCC ####[place] [address]#### PTPTTC, FT4, FT3, TSH, A1CB ####[place] [address] [place] [address]#### XLIPOB ####Reference lab information reported with result XR CHEST PORTABLEon 05-12-19 18 XR CHEST PORTABLE EXAM: XR CHEST SABRINA BLE, 05/12/2017 05:35 AMCOMPARISON: 1 day earlierCLINICAL INDICATIONS: post op heart surgeryRELEVANT CLINICAL HISTORY:FINDINGS: (Adequate technique)Right IJ introducer and postop changes. Patchy left basilar atelectasis. Mildedema. Bilateral skin folds. No pneumothorax.IMPRESSION: No significant change. Bilateral skin folds. No definite pneumothorax. Normal [facility] C Reactive Proteinon 018 C reactive protein (CRP) 157.70 mg/L High <10.00 [facility] Comment on above: Performed By: #### C BCDFM, CHM7C, HFPC, MGCC ####[place] [address]#### PTPTTC, FT4, FT3, TSH, A1CB ####[place] [address] [place], [place] [address] [address] [place] [address]#### XLIPOB ####Reference lab information reported with result CHEM 7on 05-11-2017 Anion gap 8 mmol/L Normal 7-17 [facility] Comment on above: Performed By: #### C BCDFM, CHM7C, HFPC, MGCC ####[place] [address]#### PTPTTC, FT4, FT3, TSH, A1CB ####[place] [address] [place] [address] [place] [address]#### XLIPOB ####Reference lab information reported with result BUN/Creatinine Ratio 32 mg/mg Normal [facility] Comment on above: Performed By: #### C BCDFM, CHM7C, HFPC, MGCC ####[place] [address]#### PTPTTC, FT4, FT3, TSH, A1CB ####[place] [address] [place], [place] [id number] [address] [place] [address]#### XLIPOB ####Reference lab information reported with result Chloride 104 mmol/L Normal 98-108 [facility] Comment on above: Performed By: #### C BCDFM, CHM7C, HFPC, MGCC ####[place] [address]#### PTPTTC, FT4, FT3, TSH, A1CB ####[facility] [place] [id number] Orrville Hospital[address] [place] [address]#### XLIPOB ####Reference lab information reported with result CO2 27 mmol/L Normal 22-30 [facility] Comment on above: Performed By: #### C BCDFM, CHM7C, HFPC, MGCC ####[place] [address]#### PTPTTC, FT4, FT3, TSH, A1CB ####[facility] [place], [place] [address] [address] [place] [address]#### XLIPOB ####Reference lab information reported with result Creatinine 0.82 mg/dL Normal 0.70-1.30 [facility] Comment on above: Performed By: #### C BCDFM, CHM7C, HFPC, MGCC ####[place] [address]#### PTPTTC, FT4, FT3, TSH, A1CB ####[facility] [place], [place] [address] [address] [place] [address]#### XLIPOB ####Reference lab information reported with result eGFR (non-black) mL/min/{1.73_m2} Normal >60 [facility] Comment on above: Performed By: #### C BCDFM, CHM7C, HFPC, MGCC ####[place] [address]#### PTPTTC, FT4, FT3, TSH, A1CB ####[facility] [place] [address]RtjgctAultman Orrville Hospital[address] [place] [address]#### XLIPOB ####Reference lab information reported with result Glucose mass conc 139 mg/dL High 70-99 [facility] Comment on above: Performed By: #### C BCDFM, CHM7C, HFPC, MGCC ####[place] [address]#### PTPTTC, FT4, FT3, TSH, A1CB ####[facility] [place], [place] [address] [address] [place] [address]#### XLIPOB ####Reference lab information reported with result Osmolality 291 mOsm/kg Normal 278-305 [facility] Comment on above: Performed By: #### C BCDFM, CHM7C, HFPC, MGCC ####[place] [address]#### PTPTTC, FT4, FT3, TSH, A1CB ####[facility] [place], [place] [address] [address] [place] [address]#### XLIPOB ####Reference lab information reported with result Potassium molar conc 4.0 mmol/L Normal 3.5-5.0 [facility] Comment on above: Performed By: #### C BCDFM, CHM7C, HFPC, MGCC ####[place] [address]#### PTPTTC, FT4, FT3, TSH, A1CB ####[facility] [place], [place] [address] [place] [address]#### XLIPOB ####Reference lab information reported with result Sodium 135 mmol/L Normal 133-143 [facility] Comment on above: Performed By: #### C BCDFM, CHM7C, HFPC, MGCC ####[place] [address]#### PTPTTC, FT4, FT3, TSH, A1CB ####[place] [address] [place] [address] [place] [address]#### XLIPOB ####Reference lab information reported with result Urea nitrogen 26 mg/dL High 7-22 [facility] Comment on above: Performed By: #### C BCDFM, CHM7C, HFPC, MGCC ####[place] [address]#### PTPTTC, FT4, FT3, TSH, A1CB ####[place] [address] [place] [address]#### XLIPOB ####Reference lab information reported with result ECHOCARDIOGRAMon 05-11-2017 ECHOCARDIOGRAM Patient: Frank White Med Rec#: [id number] : 1955 Date: 05/11/2017 Age: 62y Height: 193 cm / 75.3 inAccession#: [id number] Weight: 96 kg / 211.2 lbsSex: M BSA: 2.27Room#: [id number] Type: InpatientLoc: [place]-Nursing UnitFellow (int): Daniel Galeana MDReferring: VINOYIANCEYCNPReading: Amado Cain MDSonographer: Rosalina Burt RDCSRhythm: A-FibHR: 80BP: 115/67 ____Transthoracic EchocardiogramConclusion s1. The patient is s/p aortic valve replacement with 27mm St[employer] JudeTrifecta pericardial valve as well as left 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 closure [id number] Atricure Atriclip on 05/07/17.2. The left ventricular chamber size is normal.Concentric hypertrophy ispresent.The estimated ejection fraction is greater than 65%, consistentwith hyperdynamic systolic function. 3. The right ventricular global systolic function is normal.4. The left atrium is severely dilated.The right atrium is enlarged.5. A bio-prosthetic pericardial aortic valve is present. [address] JudeTrifecta Pericardial valve on . There is a trace of aortic regurgitation.7. The mean gradient of the aortic valve is 11 mmHg. The aortic valvearea, by VTI's, is calculated at 2.12 cm2. 8. There is a small pericardial effusion.The pericardial effusion isseen adjacent to the left ventricle.9. A left pleural effusion is present.Procedure Info:Study indication: atrial fibrillation / atrial flutter. Studyindication: prosthetic valvular heart disease. Indication:s/p AVR, A-fib Findings L Ventricle:The left ventricular chamber size is normal. Concentric hypertrophy ispresent. The estimated ejection fraction is greater than 65%, consistentwith hyperdynamic systolic function. The left ventricle appearshyperdynamic. Abnormal left ventricular diastolic function is observed.R Ventricle:The right ventricular cavity size is normal. The right ventricularglobal systolic function is normal. L Atrium:The left atrium is severely dilated. R Atrium:The right atrium is enlarged. Interatrial Septum:The interatrial septum is normal. Mitral V:The mitral valve leaflets appear normal. There is a trace of mitralregurgitation. There is no evidence of mitral stenosis. Aortic V:A bio-prosthetic pericardial aortic valve is present. [address] JudeTrifecta Pericardial valve on 05/07/17 There is a trace of aorticregurgitation. There is no evidence of aortic stenosis. The LVOTdiameter is 2 cm. The mean gradient of the aortic valve is 11 mmHg. Thepeak instantaneous gradient of the aortic valve is 19 mmHg. The aorticvalve area, by peak velocities, is calculated at 1.86 cm2. The aorticvalve area, by VTI's, is calculated at 2.12 cm2. Tricuspid V:The tricuspid valve leaflets are normal. There is a trace tricuspidregurgitation. The right ventricular systolic pressure is calculated at26 mmHg. There is no tricuspid stenosis. Pulmonic V:The pulmonic valve appears normal. There is no evidence of pulmonicregurgitation. There is no pulmonic stenosis. Aorta:There is mild dilatation of the ascending aorta. The aortic rootdimension is normal. Pulmonic A:The pulmonary artery appears normal. Pericardium:There is a small pericardial effusion. The pericardial effusion is seenadjacent to the left ventricle. A left pleural effusion is present. Venous:The inferior vena cava is not visualized. Diagnosis codes:82991 Echocardiography, transthoracic, real-time with imagedocumentation (2D), includes M-mode recording, when performed, complete,with spectral Doppler echocardiography, and with color flow Dopplerechocardiography. ICD-10 Diagnosis Codes: *I48.91 Unspecified atrial fibrillation*Z95.2 Presence of prosthetic heart valveMeasurements Name Value Normal Range RVID d (basal) [...] cm2 - Name Value Normal Range TR Duran 2 m/sec - TR peak gradient 16 mmHg - RAP 10 mmHg - RVSP 26 mmHg - Name Value Normal Range PV Vmax 1 m/sec (0.6 - 0.9) PV peak gradient 4 mmHg - RVOT Vmax 0.9 m/sec - RVOT peak gradient 3 mmHg - WallmotionBAS NormalBA NormalBAL NormalBIL NormalBI NormalBIS NormalMAS NormalMA NormalMAL NormalMIL NormalMI NormalMIS NormalAS NormalAA NormalAL NormalAI NormalAPEX Normal CPT (R) [employer]. All Rights Reserved. The codesdocumented in this report are preliminary and upon armature winder repair review may berevised to meet current compliance requirements. Normal [facility] HEMOGRAM (CBC and Platelet)o n 05-11-2017 Erythrocytes (RBC) 3.34 10*6/uL Low 4.63-6.08 [facility] Comment on above: Performed By: #### C BCDFM, CHM7C, HFPC, MGCC ####[place] [address]#### PTPTTC, FT4, FT3, TSH, A1CB ####[place] [address] [place] [address] [place] [address]#### XLIPOB ####Reference lab information reported with result Erythrocytes (RBC) 16.7 % High 11.6-14.4 [facility] Comment on above: Performed By: #### C BCDFM, CHM7C, HFPC, [facility] ####[place] [address]#### PTPTTC, FT4, FT3, TSH, A1CB ####[place] [address] [place], [place] [address] [address] [place] [address]#### XLIPOB ####Reference lab information reported with result Hematocrit (HCT) 32.1 % Low 40.1-51.0 [facility] Comment on above: Performed By: #### C BCDFM, CHM7C, HFPC, [facility] ####[place] [address]#### PTPTTC, FT4, FT3, TSH, A1CB ####[place] [address] [place] [address] [place] [address]#### XLIPOB ####Reference lab information reported with result Hemoglobin mass conc (Bld) 31.7 pg Normal 25.7-32.2 [facility] Comment on above: Performed By: #### C BCDFM, CHM7C, HFPC, MGCC ####[place] [address]#### PTPTTC, FT4, FT3, TSH, A1CB ####[facility] [place], [place] [address] [address] [place] [address]#### XLIPOB ####Reference lab information reported with result Hemoglobin mass conc (Bld) 10.6 g/dL Low 13.7-17.5 [facility] Comment on above: Performed By: #### C BCDFM, CHM7C, HFPC, CC ####[place] [address]#### PTPTTC, FT4, FT3, TSH, A1CB ####[facility] [place], [place] [address] [address] [place] [address]#### XLIPOB ####Reference lab information reported with result Hemoglobin mass conc (Bld) 33.0 g/dL Normal 32.3-36.5 [facility] Comment on above: Performed By: #### C BCDFM, CHM7C, HFPC, MGCC ####[place] [address]#### PTPTTC, FT4, FT3, TSH, A1CB ####[place] [address] [place], [place] [address] [address] [place] [address]#### XLIPOB ####Reference lab information reported with result MCV 96.1 fL High 79.0-92.2 [facility] Comment on above: Performed By: #### C JONATHANDFNaz, TWANM7C, HFPC, MGCC ####[place] [address]#### PTPTTC, FT4, FT3, TSH, A1CB ####[place] [address] [place] [address] [place] [address]#### XLIPOB ####Reference lab information reported with result Nucleated erythrocytes 0.0 /100 WBC Normal 0.0-0.2 [facility] Comment on above: Performed By: #### C MAIA, TWANM7C, HFPC, MGCC ####[place] [address]#### PTPTTC, FT4, FT3, TSH, A1CB ####[place] [address] [place], [place] [address] [address] [place] [address]#### XLIPOB ####Reference lab information reported with result Platelet mean volume (PMV) 9.9 fL Normal 9.4-12.4 [facility] Comment on above: Performed By: #### C MAIA, INNAC, HFPC, CC ####[place] [address]#### PTPTTC, FT4, FT3, TSH, A1CB ####[place] [address]#### XLIPOB ####Reference lab information reported with result Platelets 145 10*3/uL Low 163-337 [facility] Comment on above: Performed By: #### C BCDFM, CHM7C, HFPC, MGCC ####[place] [address]#### PTPTTC, FT4, FT3, TSH, A1CB ####[place] [address] [place], [place] [address] [address] [place] [address]#### XLIPOB ####Reference lab information reported with result WBC (Leukocytes) 6.89 10*3/uL Normal 4.23-9.07 [facility] Comment on above: Performed By: #### C BCDFM, CHM7C, HFPC, MGCC ####[place] [address]#### PTPTTC, FT4, FT3, TSH, A1CB ####[place] [address] [place], [place] [address] [address] [place] [address]#### XLIPOB ####Reference lab information reported with result Magnesiumon 05-11-2017 Magnesium 2.1 mg/dL Normal 1.6-2.6 [facility] Comment on above: Performed By: #### C BCDFM, CHM7C, HFPC, MGCC ####[place] [address]#### PTPTTC, FT4, FT3, TSH, A1CB ####[place] [address] [place] [address] [place] [address]#### XLIPOB ####Reference lab information reported with result Prealbuminon 05-11-2017 Prealbumin 6 mg/dL Low 17-34 [facility] Comment on above: Performed By: #### C BCDFM, CHM7C, HFPC, MGCC ####[place] [address]#### PTPTTC, FT4, FT3, TSH, A1CB ####[facility] [place], [place] [address] [address] [place] [address]#### XLIPOB ####Reference lab information reported with result Type and [place] 05-11-2017 Type and Cross Negative Normal [facility] Comment on above: Performed By: #### C BCDFM, CHM7C, HFPC, MGCC ####[place] [address]#### PTPTTC, FT4, FT3, TSH, A1CB ####[facility] [place], [place] [address] [address] [place] [address]#### XLIPOB ####Reference lab information reported with result XR CHEST PORTABLEon 05-11-19 XR CHEST PORTABLE EXAM: XR CHEST SABRINA BLE, 05/11/2017 05:33 AMCOMPARISON: Comparison is made to the study of the previous day.CLINICAL INDICATIONS: post op heart surgeryRELEVANT CLINICAL HISTORY:FINDINGS: (Adequate technique)Stable right IJ introducer and postop changes. Basilar atelectasis.Cardiomegaly . No major change.IMPRESSION:No major change. Normal [facility] CHEM 7on 05-10-2017 Anion gap 8 mmol/L Normal 10-06 [facility] Comment on above: Performed By: #### C BCDFM, CHM7C, HFPC, MGCC ####[place] [address]#### PTPTTC, FT4, FT3, TSH, A1CB ####[facility] [place] [address]#### XLIPOB ####Reference lab information reported with result BUN/Creatinine Ratio 33 mg/mg Normal [facility] Comment on above: Performed By: #### C BCDFM, CHM7C, HFPC, MGCC ####[place] [address]#### PTPTTC, FT4, FT3, TSH, A1CB ####[facility] [place], [place] [address] [address] [place] [address]#### XLIPOB ####Reference lab information reported with result Chloride 102 mmol/L Normal 98-108 [facility] Comment on above: Performed By: #### C BCDFM, CHM7C, HFPC, MGCC ####[place] [address]#### PTPTTC, FT4, FT3, TSH, A1CB ####[facility] [place], [place] [address] [address] [place] [address]#### XLIPOB ####Reference lab information reported with result CO2 27 mmol/L Normal 22-30 [facility] Comment on above: Performed By: #### C BCDFM, CHM7C, HFPC, MGCC ####[place] [address]#### PTPTTC, FT4, FT3, TSH, A1CB ####[place] [address] [place], [place] [address] [address] [place] [address]#### XLIPOB ####Reference lab information reported with result Creatinine 0.79 mg/dL Normal 0.70-1.30 [facility] Comment on above: Performed By: #### C BCDFM, CHM7C, HFPC, MGCC ####[facility], [place] [address]#### PTPTTC, FT4, FT3, TSH, A1CB ####[facility] [place], [place] [address]10[facility] [place] [address]#### XLIPOB ####Reference lab information reported with result eGFR (non-black) mL/min/{1.73_m2} Normal >60 [facility] Comment on above: Performed By: #### C BCDFM, CHM7C, HFPC, MGCC ####[place] [address]#### PTPTTC, FT4, FT3, TSH, A1CB ####[facility] [place], [place] [address] [address] [place] [address]#### XLIPOB ####Reference lab information reported with result Glucose mass conc 90 mg/dL Normal 70-99 [facility] Comment on above: Performed By: #### C BCDFM, CHM7C, HFPC, MGCC ####[place] [address]#### PTPTTC, FT4, FT3, TSH, A1CB ####[place] [address] [place], [place] [address] [address] [place] [address]#### XLIPOB ####Reference lab information reported with result Osmolality 284 mOsm/kg Normal 278-305 [facility] Comment on above: Performed By: #### C BCDFM, CHM7C, HFPC, MGCC ####[place] [address]#### PTPTTC, FT4, FT3, TSH, A1CB ####[facility] [place] [address]KseegfAultman Orrville Hospital[address] [place] [address]#### XLIPOB ####Reference lab information reported with result Potassium molar conc 4.2 mmol/L Normal 3.5-5.0 [facility] Comment on above: Performed By: #### C BCDFM, CHM7C, HFPC, MGCC ####[place] [id number]#### PTPTTC, FT4, FT3, TSH, A1CB ####[facility] [place], [place] [address] [place] [address]#### XLIPOB ####Reference lab information reported with result Sodium 133 mmol/L Normal 133-143 [facility] Comment on above: Performed By: #### C BCDFM, CHM7C, HFPC, MGCC ####[place] [id number]#### PTPTTC, FT4, FT3, TSH, A1CB ####[facility] [place] [address]UpvealAultman Orrville Hospital[address] [place] [address]#### XLIPOB ####Reference lab information reported with result Urea nitrogen 26 mg/dL High 7-22 [facility] Comment on above: Performed By: #### C BCDFM, CHM7C, HFPC, MGCC ####[place] [id number]#### PTPTTC, FT4, FT3, TSH, A1CB ####[facility] [place] [address]KmrjpxAultman Orrville Hospital[address] [place] [address]#### XLIPOB ####Reference lab information reported with result HEMOGRAM (CBC and Platelet)o n 05-10-2017 Erythrocytes (RBC) 17.0 % High 11.6-14.4 [facility] Comment on above: Performed By: #### C JONATHANDFNaz, TWANM7C, HFPC, MGCC ####[place] [address]#### PTPTTC, FT4, FT3, TSH, A1CB ####[place] [address] [place], [place] [address] [place] [address]#### XLIPOB ####Reference lab information reported with result Erythrocytes (RBC) 3.35 10*6/uL Low 4.63-6.08 [facility] Comment on above: Performed By: #### C BCDFM, TWANM7C, [facility] ####[place] [address]#### PTPTTC, FT4, FT3, TSH, A1CB ####[place] [address] [place] [address] [place] [address]#### XLIPOB ####Reference lab information reported with result Hematocrit (HCT) 31.7 % Low 40.1-51.0 [facility] Comment on above: Performed By: #### C BCDFM, CHM7C, [facility], [facility] ####[place] [address]#### PTPTTC, FT4, FT3, TSH, A1CB ####[place] [address] [place] [address] [place] [address]#### XLIPOB ####Reference lab information reported with result Hemoglobin mass conc (Bld) 10.6 g/dL Low 13.7-17.5 [facility] Comment on above: Performed By: #### C BCDFM, CHM7C, HFPC, MGCC ####[place] [address]#### PTPTTC, FT4, FT3, TSH, A1CB ####[place] [address] [place], [place] [address] [place] [address]#### XLIPOB ####Reference lab information reported with result Hemoglobin mass conc (Bld) 31.6 pg Normal 25.7-32.2 [facility] Comment on above: Performed By: #### C BCDFM, CHM7C, HFPC, MGCC ####[place] [address]#### PTPTTC, FT4, FT3, TSH, A1CB ####[place] [address] [place], [place] [address] [place] [address]#### XLIPOB ####Reference lab information reported with result Hemoglobin mass conc (Bld) 33.4 g/dL Normal 32.3-36.5 [facility] Comment on above: Performed By: #### C BCDFM, CHM7C, HFPC, MGCC ####[place] [address]#### PTPTTC, FT4, FT3, TSH, A1CB ####[place] [address] [place] [address] [place] [address]#### XLIPOB ####Reference lab information reported with result MCV 94.6 fL High 79.0-92.2 [facility] Comment on above: Performed By: #### C BCDFM, CHM7C, HFPC, MGCC ####[place] [address]#### PTPTTC, FT4, FT3, TSH, A1CB ####[facility] [place], [place] [address] [place] [address]#### XLIPOB ####Reference lab information reported with result Nucleated erythrocytes 0.0 /100 WBC Normal 0.0-0.2 [facility] Comment on above: Performed By: #### C BCDFM, CHM7C, HFPC, MGCC ####[place] [address]#### PTPTTC, FT4, FT3, TSH, A1CB ####[facility] [place], [place] [address] [place] [address]#### XLIPOB ####Reference lab information reported with result Platelet mean volume (PMV) 10.1 fL Normal 9.4-12.4 [facility] Comment on above: Performed By: #### C BCDFM, CHM7C, HFPC, MGCC ####[place] [address]#### PTPTTC, FT4, FT3, TSH, A1CB ####[place] [address] [place], [place] [address] [address] [place] [address]#### XLIPOB ####Reference lab information reported with result Platelets 127 10*3/uL Low 163-337 [facility] Comment on above: Performed By: #### C BCDFM, CHM7C, HFPC, MGCC ####[place] [address]#### PTPTTC, FT4, FT3, TSH, A1CB ####[facility] [place], [place] [address] [place] [address]#### XLIPOB ####Reference lab information reported with result WBC (Leukocytes) 7.50 10*3/uL Normal 4.23-9.07 [facility] Comment on above: Performed By: #### C BCDFM, CHM7C, HFPC, MGCC ####[place] [address]#### PTPTTC, FT4, FT3, TSH, A1CB ####[place] [address] [place] [address]#### XLIPOB ####Reference lab information reported with result Magnesiumon 05-10-2017 Magnesium 2.2 mg/dL Normal 1.6-2.6 [facility] Comment on above: Performed By: #### C BCDFM, CHM7C, HFPC, MGCC ####[place] [address]#### PTPTTC, FT4, FT3, TSH, A1CB ####[place] [address] [place] [address]#### XLIPOB ####Reference lab information reported with result XR CHEST PORTABLEon 05-10-19 XR CHEST PORTABLE EXAM: XR CHEST SABRINA BLE, 05/10/2017 05:51 AMCOMPARISON: 1 day earlierCLINICAL INDICATIONS: post op heart surgeryRELEVANT CLINICAL HISTORY:FINDINGS: (Adequate technique)Stable right IJ introducer and postop changes. Left basilar atelectasis andmild edema. Worsening atelectasis at the right base. Stable cardiomegaly.IMPRESSION: Worsening right basilar atelectasis. No other change. Normal [facility] CHEM 7on 05-09-2017 Anion gap 8 mmol/L Normal 10-06 [facility] Comment on above: Performed By: #### C BCDFM, CHM7C, HFPC, MGCC ####[place] [address]#### PTPTTC, FT4, FT3, TSH, A1CB ####[facility] [place], [place] [address] [address] [place] [address]#### XLIPOB ####Reference lab information reported with result BUN/Creatinine Ratio 25 mg/mg Normal [facility] Comment on above: Performed By: #### C BCDFM, CHM7C, HFPC, MGCC ####[place] [address]#### PTPTTC, FT4, FT3, TSH, A1CB ####[place] [address] [place], [place] [address] [address] [place] [address]#### XLIPOB ####Reference lab information reported with result Chloride 103 mmol/L Normal 98-108 [facility] Comment on above: Performed By: #### C BCDFM, CHM7C, HFPC, MGCC ####[place] [address]#### PTPTTC, FT4, FT3, TSH, A1CB ####[place] [address]#### XLIPOB ####Reference lab information reported with result CO2 26 mmol/L Normal 22-30 [facility] Comment on above: Performed By: #### C BCDFM, CHM7C, HFPC, MGCC ####[facility], [place] [id number]#### PTPTTC, FT4, FT3, TSH, A1CB ####[facility] [place] [address]ThhnroAultman Orrville Hospital[address] [place] [address]#### XLIPOB ####Reference lab information reported with result Creatinine 1.02 mg/dL Normal 0.70-1.30 [facility] Comment on above: Performed By: #### C BCDFM, CHM7C, HFPC, MGCC ####[place] [address]#### PTPTTC, FT4, FT3, TSH, A1CB ####[facility] [place], [place] [id number] [place] [address]#### XLIPOB ####Reference lab information reported with result eGFR (non-black) mL/min/{1.73_m2} Normal >60 [facility] Comment on above: Performed By: #### C BCDFM, CHM7C, HFPC, MGCC ####[place] [address]#### PTPTTC, FT4, FT3, TSH, A1CB ####[facility] [place] [address]99SlsfwqAultman Orrville Hospital[address] [place] [address]#### XLIPOB ####Reference lab information reported with result Glucose mass conc 103 mg/dL High 70-99 [facility] Comment on above: Performed By: #### C BCDFM, CHM7C, HFPC, MGCC ####[place] [address]#### PTPTTC, FT4, FT3, TSH, A1CB ####[facility] [place] [address]2006CnwzwuAultman Orrville Hospital[address] [place] [address]#### XLIPOB ####Reference lab information reported with result Osmolality 284 mOsm/kg Normal 278-305 [facility] Comment on above: Performed By: #### C BCDFM, CHM7C, HFPC, MGCC ####[place] [address]#### PTPTTC, FT4, FT3, TSH, A1CB ####[facility] [place], [place] [address] [address] [place] [address]#### XLIPOB ####Reference lab information reported with result Potassium molar conc 4.5 mmol/L Normal 3.5-5.0 [facility] Comment on above: Performed By: #### C BCDFM, CHM7C, HFPC, MGCC ####[place] [address]#### PTPTTC, FT4, FT3, TSH, A1CB ####[facility] [place] [address]NgjhuxAultman Orrville Hospital[address] [place] [address]#### XLIPOB ####Reference lab information reported with result Sodium 132 mmol/L Low 133-143 [facility] Comment on above: Performed By: #### C BCDFM, CHM7C, HFPC, MGCC ####[place] [address]#### PTPTTC, FT4, FT3, TSH, A1CB ####[facility] [place] [address]1936ZkowpqAultman Orrville Hospital[address] [place] [address]#### XLIPOB ####Reference lab information reported with result Urea nitrogen 26 mg/dL High 7-22 [facility] Comment on above: Performed By: #### C MAIA, [facility], [facility], MGCC ####[place] [address]#### PTPTTC, FT4, FT3, TSH, A1CB ####[place] [address] [place] [address] [place] [address]#### XLIPOB ####Reference lab information reported with result HEMOGRAM (CBC and Platelet)o n 05-09-2017 Erythrocytes (RBC) 17.4 % High 11.6-14.4 [facility] Comment on above: Performed By: #### C MAIA, [facility], [facility], CC ####[place] [address]#### PTPTTC, FT4, FT3, TSH, A1CB ####[place] [address] [place] [address]#### XLIPOB ####Reference lab information reported with result Erythrocytes (RBC) 3.78 10*6/uL Low 4.63-6.08 [facility] Comment on above: Performed By: #### C MAIA, CHM7C, [facility], MGCC ####[place] [address]#### PTPTTC, FT4, FT3, TSH, A1CB ####[place] [address] [place] [address] [place] [address]#### XLIPOB ####Reference lab information reported with result Hematocrit (HCT) 35.3 % Low 40.1-51.0 [facility] Comment on above: Performed By: #### C BCDFM, CHM7C, HFPC, MGCC ####[place] [address]#### PTPTTC, FT4, FT3, TSH, A1CB ####[place] [address] [place], [place] [address] [address] [place] [address]#### XLIPOB ####Reference lab information reported with result Hemoglobin mass conc (Bld) 33.1 g/dL Normal 32.3-36.5 [facility] Comment on above: Performed By: #### C BCDFM, CHM7C, HFPC, MGCC ####[place] [address]#### PTPTTC, FT4, FT3, TSH, A1CB ####[place] [address] [place], [place] [address] [address] [place] [address]#### XLIPOB ####Reference lab information reported with result Hemoglobin mass conc (Bld) 11.7 g/dL Low 13.7-17.5 [facility] Comment on above: Performed By: #### C BCDFM, CHM7C, HFPC, CC ####[place] [address]#### PTPTTC, FT4, FT3, TSH, A1CB ####[place] [address] [place] [address] [place] [address]#### XLIPOB ####Reference lab information reported with result Hemoglobin mass conc (Bld) 31.0 pg Normal 25.7-32.2 [facility] Comment on above: Performed By: #### C BCDFM, CHM7C, HFPC, CC ####[place] [id number]#### PTPTTC, FT4, FT3, TSH, A1CB ####[facility] [place] [address]TxxulgAultman Orrville Hospital[address] [place] [address]#### XLIPOB ####Reference lab information reported with result MCV 93.4 fL High 79.0-92.2 [facility] Comment on above: Performed By: #### C BCDFM, CHM7C, HFPC, CC ####[place] [address]#### PTPTTC, FT4, FT3, TSH, A1CB ####[facility] [place], [place] [address] [place] [address]#### XLIPOB ####Reference lab information reported with result Nucleated erythrocytes 0.0 /100 WBC Normal 0.0-0.2 [facility] Comment on above: Performed By: #### C BCDFM, CHM7C, [facility], CC ####[place] [address]#### PTPTTC, FT4, FT3, TSH, A1CB ####[facility] [place], [place] [address] [address] [place] [address]#### XLIPOB ####Reference lab information reported with result Platelet mean volume (PMV) 9.6 fL Normal 9.4-12.4 [facility] Comment on above: Performed By: #### C BCDFM, CHM7C, HFPC, MGCC ####[place] [address]#### PTPTTC, FT4, FT3, TSH, A1CB ####[facility] [place], [place] [address] [address] [place] [address]#### XLIPOB ####Reference lab information reported with result Platelets 120 10*3/uL Low 163-337 [facility] Comment on above: Performed By: #### C BCDFM, CHM7C, HFPC, MGCC ####[place] [address]#### PTPTTC, FT4, FT3, TSH, A1CB ####[facility] [place], [place] [address] [place] [address]#### XLIPOB ####Reference lab information reported with result WBC (Leukocytes) 9.51 10*3/uL High 4.23-9.07 [facility] Comment on above: Performed By: #### C BCDFM, CHM7C, HFPC, MGCC ####[place] [address]#### PTPTTC, FT4, FT3, TSH, A1CB ####[place] [address]#### XLIPOB ####Reference lab information reported with result Magnesiumon 05-09-2017 Magnesium 2.2 mg/dL Normal 1.6-2.6 [facility] Comment on above: Performed By: #### C BCDFM, CHM7C, HFPC, MGCC ####[place] [address]#### PTPTTC, FT4, FT3, TSH, A1CB ####[address] [place] [address]#### XLIPOB ####Reference lab information reported with result PT*PTTon 05-09-2017 aPTT 34.0 s Normal 24.0-34.3 [facility] Comment on above: Performed By: #### C MAIA, TWANM7C, HFPC, MGCC ####[place] [address]#### PTPTTC, FT4, FT3, TSH, A1CB ####[facility] [place], [place] [address] [address] [place] [address]#### XLIPOB ####Reference lab information reported with result INR Coag RelTime (PPP) 1.2 {INR} High 0.9-1.1 [facility] Comment on above: Performed By: #### C MAIA, TWANM7C, [facility], CC ####[place] [address]#### PTPTTC, FT4, FT3, TSH, A1CB ####[facility] [place], [place] [address] [address] [place] [address]#### XLIPOB ####Reference lab information reported with result Prothrombin time (PT) Coag time (PPP) 15.1 s High 11.9-14.2 [facility] Comment on above: Performed By: #### C MAIA, TWANM7C, HFPC, CC ####[place] [address]#### PTPTTC, FT4, FT3, TSH, A1CB ####[facility] [place], [place] [address] [address] [place] [address]#### XLIPOB ####Reference lab information reported with result XR CHEST PORTABLEon 05-09-19 18 XR CHEST PORTABLE EXAM: XR CHEST SABRINA KELLY, 05/09/2017 05:33 AMCOMPARISON: Comparison is made to the study of the previous day.CLINICAL INDICATIONS: post op heart surgeryRELEVANT CLINICAL HISTORY:FINDINGS: (Adequate technique)Stable right IJ introducer and postop changes. Left basilar atelectasis.Stable heart size. No major change.IMPRESSION:No change. Normal [facility] *POC GLUCOSE BATTERYon 05-08 *POC SAMPLE TYPE Capillary Blood Normal [facility] Glucose mass conc 107 mg/dL High 70-99 [facility] Comment on above: Result Comment: No B RAVE per RN: PATIENT TYPE *POC SAMPLE TYPE Arterial Normal [facility] Glucose mass conc 114 mg/dL High 70-99 [facility] Comment on above: Result Comment: No B RAVE per RN: PATIENT TYPE *POC SAMPLE TYPE Arterial Normal [facility] Glucose mass conc 136 mg/dL High 70-99 [facility] Comment on above: Result Comment: No B RAVE per RN: PATIENT TYPE *POC SAMPLE TYPE Arterial Normal [facility] Glucose mass conc 123 mg/dL High 70-99 [facility] Comment on above: Result Comment: No B RAVE per RN: PATIENT TYPE CHEM 705-08-2017 Anion gap 11 mmol/L Normal 10-06 [facility] Comment on above: Performed By: #### C BCDFM, CHM7C, HFPC, MGCC ####[place] [address]#### PTPTTC, FT4, FT3, TSH, A1CB ####[facility] [place] [address] [place] [address] [place] [address]#### XLIPOB ####Reference lab information reported with result BUN/Creatinine Ratio 21 mg/mg Normal [facility] Comment on above: Performed By: #### C BCDFM, CHM7C, HFPC, MGCC ####[place] [address]#### PTPTTC, FT4, FT3, TSH, A1CB ####[facility] [place], [place] [address] [address] [place] [address]#### XLIPOB ####Reference lab information reported with result Chloride 106 mmol/L Normal 98-108 [facility] Comment on above: Performed By: #### C BCDFM, CHM7C, HFPC, MGCC ####[place] [address]#### PTPTTC, FT4, FT3, TSH, A1CB ####[facility] [place], [place] [address] [address] [place] [address]#### XLIPOB ####Reference lab information reported with result CO2 23 mmol/L Normal 22-30 [facility] Comment on above: Performed By: #### C BCDFM, CHM7C, HFPC, MGCC ####[place] [address]#### PTPTTC, FT4, FT3, TSH, A1CB ####[facility] [place], [place] [address] [address] [place] [address]#### XLIPOB ####Reference lab information reported with result Creatinine 1.24 mg/dL Normal 0.70-1.30 [facility] Comment on above: Performed By: #### C BCDFM, CHM7C, HFPC, MGCC ####[facility], [place] [id number]#### PTPTTC, FT4, FT3, TSH, A1CB ####[facility] [place] [id number] Orrville Hospital[address] [place] [address]#### XLIPOB ####Reference lab information reported with result eGFR (non-black) mL/min/{1.73_m2} Normal >60 [facility] Comment on above: Performed By: #### C BCDFM, CHM7C, HFPC, MGCC ####[place] [address]#### PTPTTC, FT4, FT3, TSH, A1CB ####[facility] [place], [place] [address] [place] [address]#### XLIPOB ####Reference lab information reported with result eGFR (non-black) 59 mL/min/1.73sqM Low >60 [facility] Comment on above: Performed By: #### C BCDFM, CHM7C, HFPC, MGCC ####[place] [address]#### PTPTTC, FT4, FT3, TSH, A1CB ####[facility] [place], [place] [address] [address] [place] [address]#### XLIPOB ####Reference lab information reported with result Glucose mass conc 105 mg/dL High 70-99 [facility] Comment on above: Performed By: #### C BCDFM, CHM7C, HFPC, MGCC ####[place] [address]#### PTPTTC, FT4, FT3, TSH, A1CB ####[facility] [place] [address]25RanopyAultman Orrville Hospital[address] [place] [address]#### XLIPOB ####Reference lab information reported with result Osmolality 290 mOsm/kg Normal 278-305 [facility] Comment on above: Performed By: #### C BCDFM, CHM7C, HFPC, MGCC ####[place] [address]#### PTPTTC, FT4, FT3, TSH, A1CB ####[facility] [place], [place] [address] [address] [place] [address]#### XLIPOB ####Reference lab information reported with result Potassium molar conc 4.9 mmol/L Normal 3.5-5.0 [facility] Comment on above: Performed By: #### C BCDFM, CHM7C, HFPC, MGCC ####[place] [address]#### PTPTTC, FT4, FT3, TSH, A1CB ####[facility] [place] [address] 64505QqifusAultman Orrville Hospital[address] [place] [address]#### XLIPOB ####Reference lab information reported with result Sodium 135 mmol/L Normal 133-143 [facility] Comment on above: Performed By: #### C BCDFM, CHM7C, HFPC, MGCC ####[place] [id number]#### PTPTTC, FT4, FT3, TSH, A1CB ####[facility] [place] [address]QcccfbAultman Orrville Hospital[address] [address]#### XLIPOB ####Reference lab information reported with result Urea nitrogen 26 mg/dL High - [facility] Comment on above: Performed By: #### C BCDFM, CHM7C, HFPC, MGCC ####[place] [id number]#### PTPTTC, FT4, FT3, TSH, A1CB ####[facility] [place], [place] [address] [address] [place] [address]#### XLIPOB ####Reference lab information reported with result Anion gap 12 mmol/L Normal 10-06 [facility] Comment on above: Performed By: #### C BCDFM, CHM7C, HFPC, MGCC ####[place] [address]#### PTPTTC, FT4, FT3, TSH, A1CB ####[facility] [place], [place] [address] [address] [place] [address]#### XLIPOB ####Reference lab information reported with result BUN/Creatinine Ratio 18 mg/mg Normal [facility] Comment on above: Performed By: #### C BCDFM, CHM7C, HFPC, MGCC ####[place] [address]#### PTPTTC, FT4, FT3, TSH, A1CB ####[facility] [place], [place] [address] [place] [address]#### XLIPOB ####Reference lab information reported with result Chloride 107 mmol/L Normal 98-108 [facility] Comment on above: Performed By: #### C BCDFM, CHM7C, HFPC, MGCC ####[place] [id number]#### PTPTTC, FT4, FT3, TSH, A1CB ####[facility] [place] [address]NkncggAultman Orrville Hospital[address] [place] [address]#### XLIPOB ####Reference lab information reported with result CO2 22 mmol/L Normal 22-30 [facility] Comment on above: Performed By: #### C BCDFM, CHM7C, HFPC, MGCC ####[place] [address]#### PTPTTC, FT4, FT3, TSH, A1CB ####[facility] [place], [place] [address] [place] [address]#### XLIPOB ####Reference lab information reported with result Creatinine 1.21 mg/dL Normal 0.70-1.30 [facility] Comment on above: Performed By: #### C BCDFM, CHM7C, HFPC, MGCC ####[place] [address]#### PTPTTC, FT4, FT3, TSH, A1CB ####[place] [address] [place], [place] [address] [place] [address]#### XLIPOB ####Reference lab information reported with result eGFR (non-black) mL/min/{1.73_m2} Normal >60 [facility] Comment on above: Performed By: #### C BCDFM, CHM7C, HFPC, MGCC ####[place] [address]#### PTPTTC, FT4, FT3, TSH, A1CB ####[facility] [place] [address]OgpokvAultman Orrville Hospital[address] [place] [address]#### XLIPOB ####Reference lab information reported with result Glucose mass conc 133 mg/dL High 70-99 [facility] Comment on above: Performed By: #### C BCDFM, CHM7C, HFPC, MGCC ####[place] [address]#### PTPTTC, FT4, FT3, TSH, A1CB ####[facility] [place] [address]3892KaetljAultman Orrville Hospital[address] [place] [address]#### XLIPOB ####Reference lab information reported with result Osmolality 292 mOsm/kg Normal 278-305 [facility] Comment on above: Performed By: #### C BCDFM, CHM7C, HFPC, MGCC ####[place] [address]#### PTPTTC, FT4, FT3, TSH, A1CB ####[facility] [place] [address] 88704NyejjrAultman Orrville Hospital[address] [place] [address]#### XLIPOB ####Reference lab information reported with result Potassium molar conc 4.9 mmol/L Normal 3.5-5.0 [facility] Comment on above: Performed By: #### C BCDFM, CHM7C, HFPC, MGCC ####[place] [id number]#### PTPTTC, FT4, FT3, TSH, A1CB ####[facility] [place] [address] 50298YofpieAultman Orrville Hospital[address] [place] [address]#### XLIPOB ####Reference lab information reported with result Sodium 136 mmol/L Normal 133-143 [facility] Comment on above: Performed By: #### C MAIA, TWANM7C, [facility], [facility] ####[place] [address]#### PTPTTC, FT4, FT3, TSH, A1CB ####[place] [address] [place] [address] [place] [address]#### XLIPOB ####Reference lab information reported with result Urea nitrogen 22 mg/dL Normal 7-22 [facility] Comment on above: Performed By: #### C MAIA, TWANM7C, [facility], [facility] ####[place] [address]#### PTPTTC, FT4, FT3, TSH, A1CB ####[address] [place], [place] [address] [address] [place] [address]#### XLIPOB ####Reference lab information reported with result HEMOGRAM (CBC and Platelet)o n 05-08-2017 Erythrocytes (RBC) 4.03 10*6/uL Low 4.63-6.08 [facility] Comment on above: Performed By: #### C MAIA, CHM7C, [facility], CC ####[place] [address]#### PTPTTC, FT4, FT3, TSH, A1CB ####[place] [address] [place] [address] [place] [address]#### XLIPOB ####Reference lab information reported with result Erythrocytes (RBC) 18.0 % High 11.6-14.4 [facility] Comment on above: Performed By: #### C BCDFM, CHM7C, HFPC, MGCC ####[place] [address]#### PTPTTC, FT4, FT3, TSH, A1CB ####[facility] [place], [place] [address] [address] [place] [address]#### XLIPOB ####Reference lab information reported with result Hematocrit (HCT) 38.3 % Low 40.1-51.0 [facility] Comment on above: Performed By: #### C BCDFM, CHM7C, HFPC, MGCC ####[place] [address]#### PTPTTC, FT4, FT3, TSH, A1CB ####[facility] [place], [place] [address] [address] [place] [address]#### XLIPOB ####Reference lab information reported with result Hemoglobin mass conc (Bld) 12.7 g/dL Low 13.7-17.5 [facility] Comment on above: Performed By: #### C BCDFM, CHM7C, HFPC, MGCC ####[place] [address]#### PTPTTC, FT4, FT3, TSH, A1CB ####[place] [address] [place], [place] [address] [place] [address]#### XLIPOB ####Reference lab information reported with result Hemoglobin mass conc (Bld) 33.2 g/dL Normal 32.3-36.5 [facility] Comment on above: Performed By: #### C BCDFM, CHM7C, HFPC, MGCC ####[facility], [place] [address]#### PTPTTC, FT4, FT3, TSH, A1CB ####[facility] [place] [address]91PukfhrAultman Orrville Hospital[address] [place] [address]#### XLIPOB ####Reference lab information reported with result Hemoglobin mass conc (Bld) 31.5 pg Normal 25.7-32.2 [facility] Comment on above: Performed By: #### C BCDFM, CHM7C, HFPC, MGCC ####[place] [address]#### PTPTTC, FT4, FT3, TSH, A1CB ####[facility] [place], [place] [address] [address] [place] [address]#### XLIPOB ####Reference lab information reported with result MCV 95.0 fL High 79.0-92.2 [facility] Comment on above: Performed By: #### C BCDFM, CHM7C, HFPC, MGCC ####[place] [address]#### PTPTTC, FT4, FT3, TSH, A1CB ####[address] [place], [place] [address] [address] [place] [address]#### XLIPOB ####Reference lab information reported with result Nucleated erythrocytes 0.0 /100 WBC Normal 0.0-0.2 [facility] Comment on above: Performed By: #### C BCDFM, CHM7C, HFPC, MGCC ####[place] [address]#### PTPTTC, FT4, FT3, TSH, A1CB ####[place] [address] [place] [address]ZxzshpAultman Orrville Hospital[address] [place] [address]#### XLIPOB ####Reference lab information reported with result Platelet mean volume (PMV) NOT MEASURED Normal 9.4-12.4 [facility] Comment on above: Performed By: #### C BCDFM, CHM7C, HFPC, MGCC ####[place] [address]#### PTPTTC, FT4, FT3, TSH, A1CB ####[facility] [place], [place] [address] [address] [place] [address]#### XLIPOB ####Reference lab information reported with result Platelets 116 10*3/uL Low 163-337 [facility] Comment on above: Performed By: #### C BCDFM, CHM7C, HFPC, MGCC ####[place] [address]#### PTPTTC, FT4, FT3, TSH, A1CB ####[facility] [place] [address]EuuizkAultman Orrville Hospital[address] [place] [address]#### XLIPOB ####Reference lab information reported with result WBC (Leukocytes) 8.33 10*3/uL Normal 4.23-9.07 [facility] Comment on above: Performed By: #### C BCDFM, CHM7C, HFPC, MGCC ####[place] [address]#### PTPTTC, FT4, FT3, TSH, A1CB ####[facility] [place] [id number] Orrville Hospital[address], [place] [address]#### XLIPOB ####Reference lab information reported with result Magnesiumon 05-08-2017 Magnesium 3.2 mg/dL High 1.6-2.6 [facility] Comment on above: Performed By: #### C MAIA, INNA[facility], [facility], [facility] ####[place] [address]#### PTPTTC, FT4, FT3, TSH, A1CB ####[place] [address] [place], [place] [id number] [address] [place] [address]#### XLIPOB ####Reference lab information reported with result Magnesium 2.5 mg/dL Normal 1.6-2.6 [facility] Comment on above: Performed By: #### C MAIA, INNAC, [facility], CC ####[place] [address]#### PTPTTC, FT4, FT3, TSH, A1CB ####[place] [address] [place] [address]#### XLIPOB ####Reference lab information reported with result PT*PTTon 05-08-2017 aPTT 32.4 s Normal 24.0-34.3 [facility] Comment on above: Performed By: #### C MAIA, TWANMCiprianoC, [facility], [facility] ####[place] [address]#### PTPTTC, FT4, FT3, TSH, A1CB ####[place] [address] [place], [place] [address] [address] [place] [address]#### XLIPOB ####Reference lab information reported with result INR Coag RelTime (PPP) 1.2 {INR} High 0.9-1.1 [facility] Comment on above: Performed By: #### C BCDFM, CHM7C, [facility], MG ####[place] [address]#### PTPTTC, FT4, FT3, TSH, A1CB ####[facility] [place] [address]#### XLIPOB ####Reference lab information reported with result Prothrombin time (PT) Coag time (PPP) 14.7 s High 11.9-14.2 [facility] Comment on above: Performed By: #### C BCDFM, CHM7C, [facility], [facility] ####[place] [address]#### PTPTTC, FT4, FT3, TSH, A1CB ####[facility] [place] [address]#### XLIPOB ####Reference lab information reported with result XR CHEST PORTABLEon 05-08-19 18 XR CHEST PORTABLE EXAM: XR CHEST SABRINA BLE, 05/08/2017 05:57 AMCOMPARISON: May 07, 2017.CLINICAL INDICATIONS: post op CABGFINDINGS: (Adequate technique)Life Support Devices: Right IJ PA catheter is been removed with sheathremaining. Endotracheal tube is been removed. Chest Wall: Prior median sternotomy with intact sternal wires. Remote, healedright-sided rib fractures.Charlene: NormalMediastinum: NormalPleural Spaces: No definite pleural effusion. No definite pneumothorax.Lungs: Low lung volumes with suggestion of mild interstitial edema in thelung bases.Cardiac Silhouette: Stable contour with postoperative changes Thoracic Aorta: NormalPulmonary Vessels: Probable mild interstitial edema.IMPRESSION:Probabl e mild interstitial edema, although exacerbated by low lung volumes.Interval extubation and removal of a right IJ PA catheter with remainingsheath. Normal [facility] *BLOOD*GAS*PANEL 1 -Darshan 0 05-07-2017 Base Deficit 0.7 mmol/L Normal 0-3.0 [facility] Bicarbonate (HCO3) 23 mmol/L Normal 22-26 [facility] CO2 57 mm Hg High 32-48 [facility] COMMENT Senior Linux Administrator notified Normal [facility] Glucose mass conc 141 mg/dL High 70-99 [facility] Hematocrit (HCT) 39 % Low 40.1-51.0 [facility] Hemoglobin mass conc (Bld) 12.8 g/dL Low 13.7-17.5 [facility] Lactate, Whole Blood 0.9 mmol/L Normal 0.5-1.6 [facility] O2 saturation 100 % High 94-98 [facility] Oxygen in arterial blood 280 mm Hg High 83-108 [facility] pH of blood 7.27 [pH] Low 7.35-7.45 [facility] Potassium molar conc 4.9 mmol/L Normal 3.5-5.0 [facility] Sodium 137 mmol/L Normal 133-143 [facility] Specimen type Arterial Normal [facility] Whole Bld Ionized CA 5.14 mg/dL Normal 4.60-5.30 [facility] Base Deficit 1.4 mmol/L Normal 0-3.0 [facility] Bicarbonate (HCO3) 23 mmol/L Normal 22-26 [facility] CO2 52 mm Hg High 32-48 [facility] COMMENT Senior Linux Administrator notified Normal [facility] Glucose mass conc 145 mg/dL High 70-99 [facility] Hematocrit (HCT) 36 % Low 40.1-51.0 [facility] Hemoglobin mass conc (Bld) 11.8 g/dL Low 13.7-17.5 [facility] Lactate, Whole Blood 1.2 mmol/L Normal 0.5-1.6 [facility] O2 saturation 100 % High 94-98 [facility] Oxygen in arterial blood 384 mm Hg High 83-108 [facility] pH of blood 7.30 [pH] Low 7.35-7.45 [facility] Potassium molar conc 5.1 mmol/L High 3.5-5.0 [facility] Sodium 136 mmol/L Normal 133-143 [facility] Specimen type Arterial Normal [facility] Whole Bld Ionized CA 4.89 mg/dL Normal 4.60-5.30 [facility] Base Deficit 1.3 mmol/L Normal 0-3.0 [facility] Bicarbonate (HCO3) 23 mmol/L Normal 22-26 [facility] CO2 50 mm Hg High 32-48 [facility] COMMENT Senior Linux Administrator notified Normal [facility] Glucose mass conc 146 mg/dL High 70-99 [facility] Hematocrit (HCT) 36 % Low 40.1-51.0 [facility] Hemoglobin mass conc (Bld) 11.9 g/dL Low 13.7-17.5 [facility] Lactate, Whole Blood 1.3 mmol/L Normal 0.5-1.6 [facility] O2 saturation 100 % High 94-98 [facility] Oxygen in arterial blood 439 mm Hg High 83-108 [facility] pH of blood 7.31 [pH] Low 7.35-7.45 [facility] Potassium molar conc 5.2 mmol/L High 3.5-5.0 [facility] Sodium 135 mmol/L Normal 133-143 [facility] Specimen type Arterial Normal [facility] Whole Bld Ionized CA 5.07 mg/dL Normal 4.60-5.30 [facility] Base Deficit 0.5 mmol/L Normal 0-3.0 [facility] Bicarbonate (HCO3) 24 mmol/L Normal 22-26 [facility] CO2 45 mm Hg Normal 32-48 [facility] COMMENT Senior Linux Administrator notified Normal [facility] Glucose mass conc 171 mg/dL High 70-99 [facility] Hematocrit (HCT) 35 % Low 40.1-51.0 [facility] Hemoglobin mass conc (Bld) 11.5 g/dL Low 13.7-17.5 [facility] Lactate, Whole Blood 0.6 mmol/L Normal 0.5-1.6 [facility] O2 saturation 100 % High 94-98 [facility] Oxygen in arterial blood 191 mm Hg High 83-108 [facility] pH of blood 7.35 [pH] Normal 7.35-7.45 [facility] Potassium molar conc 5.6 mmol/L High 3.5-5.0 [facility] Sodium 134 mmol/L Normal 133-143 [facility] Specimen type Arterial Normal [facility] Whole Bld Ionized CA 4.52 mg/dL Low 4.60-5.30 [facility] Base Deficit 0.4 mmol/L Normal 0-3.0 [facility] Bicarbonate (HCO3) 24 mmol/L Normal 22-26 [facility] CO2 47 mm Hg Normal 32-48 [facility] COMMENT Senior Linux Administrator notified Normal [facility] Glucose mass conc 172 mg/dL High 70-99 [facility] Hematocrit (HCT) 35 % Low 40.1-51.0 [facility] Hemoglobin mass conc (Bld) 11.4 g/dL Low 13.7-17.5 [facility] Lactate, Whole Blood 0.6 mmol/L Normal 0.5-1.6 [facility] O2 saturation 100 % High 94-98 [facility] Oxygen in arterial blood 439 mm Hg High 83-108 [facility] pH of blood 7.34 [pH] Low 7.35-7.45 [facility] Potassium molar conc 5.5 mmol/L High 3.5-5.0 [facility] Sodium 135 mmol/L Normal 133-143 [facility] Specimen type Arterial Normal [facility] Whole Bld Ionized CA 4.54 mg/dL Low 4.60-5.30 [facility] BASE EXCESS 0.1 mmol/L Normal [facility] Bicarbonate (HCO3) 24 mmol/L Normal 22-26 [facility] CO2 50 mm Hg High 32-48 [facility] COMMENT Senior Linux Administrator notified Normal [facility] Glucose mass conc 178 mg/dL High 70-99 [facility] Hematocrit (HCT) 35 % Low 40.1-51.0 [facility] Hemoglobin mass conc (Bld) 11.4 g/dL Low 13.7-17.5 [facility] Lactate, Whole Blood 0.6 mmol/L Normal 0.5-1.6 [facility] O2 saturation 100 % High 94-98 [facility] Oxygen in arterial blood 455 mm Hg High 83-108 [facility] pH of blood 7.33 [pH] Low 7.35-7.45 [facility] Potassium molar conc 5.8 mmol/L High 3.5-5.0 [facility] Sodium 134 mmol/L Normal 133-143 [facility] Specimen type Arterial Normal [facility] Whole Bld Ionized CA 4.56 mg/dL Low 4.60-5.30 [facility] BASE EXCESS 0.6 mmol/L Normal [facility] Bicarbonate (HCO3) 24 mmol/L Normal 22-26 [facility] CO2 52 mm Hg High 32-48 [facility] COMMENT Senior Linux Administrator notified Normal [facility] Glucose mass conc 163 mg/dL High 70-99 [facility] Hematocrit (HCT) 35 % Low 40.1-51.0 [facility] Hemoglobin mass conc (Bld) 11.5 g/dL Low 13.7-17.5 [facility] Lactate, Whole Blood 0.6 mmol/L Normal 0.5-1.6 [facility] O2 saturation 100 % High 94-98 [facility] Oxygen in arterial blood 174 mm Hg High 83-108 [facility] pH of blood 7.32 [pH] Low 7.35-7.45 [facility] Potassium molar conc 5.4 mmol/L High 3.5-5.0 [facility] Sodium 135 mmol/L Normal 133-143 [facility] Specimen type Arterial Normal [facility] Whole Bld Ionized CA 4.60 mg/dL Normal 4.60-5.30 [facility] BASE EXCESS 0.9 mmol/L Normal [facility] Bicarbonate (HCO3) 25 mmol/L Normal 22-26 [facility] CO2 47 mm Hg Normal 32-48 [facility] COMMENT Senior Linux Administrator notified Normal [facility] Glucose mass conc 124 mg/dL High 70-99 [facility] Hematocrit (HCT) 38 % Low 40.1-51.0 [facility] Hemoglobin mass conc (Bld) 12.5 g/dL Low 13.7-17.5 [facility] O2 saturation 100 % High 94-98 [facility] Oxygen in arterial blood 315 mm Hg High 83-108 [facility] pH of blood 7.36 [pH] Normal 7.35-7.45 [facility] Potassium molar conc 4.2 mmol/L Normal 3.5-5.0 [facility] Sodium 136 mmol/L Normal 133-143 [facility] Specimen type Arterial Normal [facility] Whole Bld Ionized CA 4.51 mg/dL Low 4.60-5.30 [facility] BASE EXCESS 0.5 mmol/L Normal [facility] Bicarbonate (HCO3) 24 mmol/L Normal 22-26 [facility] CO2 46 mm Hg Normal 32-48 [facility] COMMENT Senior Linux Administrator notified Normal [facility] Glucose mass conc 116 mg/dL High 70-99 [facility] Hematocrit (HCT) 43 % Normal 40.1-51.0 [facility] Hemoglobin mass conc (Bld) 14.0 g/dL Normal 13.7-17.5 [facility] O2 saturation 99 % High 94-98 [facility] Oxygen in arterial blood 145 mm Hg High 83-108 [facility] pH of blood 7.36 [pH] Normal 7.35-7.45 [facility] Potassium molar conc 4.4 mmol/L Normal 3.5-5.0 [facility] Sodium 138 mmol/L Normal 133-143 [facility] Specimen type Arterial Normal [facility] Whole Bld Ionized CA 4.83 mg/dL Normal 4.60-5.30 [facility] BASE EXCESS 0.8 mmol/L Normal [facility] CO2 51 mm Hg High 32-48 [facility] Glucose mass conc 104 mg/dL High 70-99 [facility] Hemoglobin mass conc (Bld) 14.1 g/dL Normal 13.7-17.5 [facility] Oxygen in arterial blood 175 mm Hg High 83-108 [facility] Sodium 139 mmol/L Normal 133-143 [facility] Whole Bld Ionized CA 4.95 mg/dL Normal 4.60-5.30 [facility] *POC GLUCOSE BATTERYon 05-07 *POC SAMPLE TYPE Arterial Normal [facility] Glucose mass conc 126 mg/dL High 70-99 [facility] Comment on above: Result Comment: Meet s BRAVE per RN: PATIENT TYPE *POC SAMPLE TYPE Arterial Normal [facility] Glucose mass conc 131 mg/dL High 70-99 [facility] Comment on above: Result Comment: Meet s BRAVE per RN: PATIENT TYPE *POC SAMPLE TYPE Arterial Normal [facility] Glucose mass conc 105 mg/dL High 70-99 [facility] Comment on above: Result Comment: Meet s BRAVE per RN: PATIENT TYPE *POC SAMPLE TYPE Arterial Normal [facility] Glucose mass conc 142 mg/dL High 70-99 [facility] Comment on above: Result Comment: Meet s BRAVE per RN: PATIENT TYPE *POC SAMPLE TYPE Venous Normal [facility] Glucose mass conc 94 mg/dL Normal 70-99 [facility] Comment on above: Result Comment: No Navneet JEAN per RN: PATIENT TYPE CHEM 05-07-2017 Anion gap 13 mmol/L Normal 10-06 [facility] Comment on above: Performed By: #### C BCDFM, CHM7C, HFPC, MGCC ####[place] [address]#### PTPTTC, FT4, FT3, TSH, A1CB ####[place] [address] [place] [address]#### XLIPOB ####Reference lab information reported with result BUN/Creatinine Ratio 20 mg/mg Normal [facility] Comment on above: Performed By: #### C BCDFM, CHM7C, HFPC, MGCC ####[place] [address]#### PTPTTC, FT4, FT3, TSH, A1CB ####[place] [address] [place] [address] [place] [address]#### XLIPOB ####Reference lab information reported with result Chloride 108 mmol/L Normal 98-108 [facility] Comment on above: Performed By: #### C BCDFM, CHM7C, HFPC, MGCC ####[place] [address]#### PTPTTC, FT4, FT3, TSH, A1CB ####[facility] [place], [place] [id number] [address] [place] [address]#### XLIPOB ####Reference lab information reported with result CO2 20 mmol/L Low 22-30 [facility] Comment on above: Performed By: #### C BCDFM, CHM7C, HFPC, MGCC ####[place] [address]#### PTPTTC, FT4, FT3, TSH, A1CB ####[facility] [place], [place] [id number] [address] [place] [address]#### XLIPOB ####Reference lab information reported with result Creatinine 1.06 mg/dL Normal 0.70-1.30 [facility] Comment on above: Performed By: #### C BCDFM, CHM7C, HFPC, MGCC ####[place] [address]#### PTPTTC, FT4, FT3, TSH, A1CB ####[place] [address] [place] [address] [place] [address]#### XLIPOB ####Reference lab information reported with result eGFR (non-black) mL/min/{1.73_m2} Normal >60 [facility] Comment on above: Performed By: #### C BCDFM, CHM7C, HFPC, MGCC ####[place] [address]#### PTPTTC, FT4, FT3, TSH, A1CB ####[facility] [place] [address]qesA[facility] [place] [address]#### XLIPOB ####Reference lab information reported with result Glucose mass conc 125 mg/dL High 70-99 [facility] Comment on above: Performed By: #### C BCDFM, CHM7C, HFPC, MGCC ####[place] [address]#### PTPTTC, FT4, FT3, TSH, A1CB ####[facility] [place], [place] [id number] [place] [address]#### XLIPOB ####Reference lab information reported with result Osmolality 292 mOsm/kg Normal 278-305 [facility] Comment on above: Performed By: #### C BCDFM, CHM7C, HFPC, MGCC ####[place] [address]#### PTPTTC, FT4, FT3, TSH, A1CB ####[facility] [place], [place] [address] [address] [place] [address]#### XLIPOB ####Reference lab information reported with result Potassium molar conc 5.1 mmol/L High 3.5-5.0 [facility] Comment on above: Performed By: #### C BCDFM, CHM7C, HFPC, MGCC ####[place] [address]#### PTPTTC, FT4, FT3, TSH, A1CB ####[facility] [place], [place] [id number] [address] [place], [place] [id number]#### XLIPOB ####Reference lab information reported with result Sodium 136 mmol/L Normal 133-143 [facility] Comment on above: Performed By: #### C BCDFM, CHM7C, [facility], [facility] ####[place] [address]#### PTPTTC, FT4, FT3, TSH, A1CB ####[facility] [place], [place] [address] [address] [place] [address]#### XLIPOB ####Reference lab information reported with result Urea nitrogen 21 mg/dL Normal 7-22 [facility] Comment on above: Performed By: #### C BCDFM, CHM7C, [facility], [facility] ####[place] [address]#### PTPTTC, FT4, FT3, TSH, A1CB ####[facility] [place], [place] [address] [address] [place] [address]#### XLIPOB ####Reference lab information reported with result EXTEMon 05-07-2017 EXTEM A10 49 Normal [facility] EXTEM A20 57 mm Normal 50-70 [facility] EXTEM ALPHA 69 Normal 65-80 [facility] EXTEM CFT 112 sec Normal 48-[address] [facility] [address] 86 sec High 43-82 [facility] EXTEM LI30 100 Normal [facility] EXTEM MCF 58 mm Normal 52-70 [facility] EXTEM ML 3 Normal [facility] FIBTEMon 05-07-2017 FIBTEM A10 14 0 Normal [facility] FIBTEM A20 15 mm Normal 7-21 [facility] FIBTEM ALPHA 68 0 Normal [facility] FIBTEM CT 77 Normal [facility] FIBTEM LI30 100 Normal [facility] FIBTEM MCF 15 mm Normal 7-21 [facility] FIBTEM ML 0 Normal [facility] Fibrinogen-Clottableon 05-07 Fibrinogen-Clottable 302 mg/dL Normal 220-410 [facility] Comment on above: Performed By: #### C BCDFM, CHM7C, HFPC, MGCC ####[place] [address]#### PTPTTC, FT4, FT3, TSH, A1CB ####[place] [address] [place] [address]#### XLIPOB ####Reference lab information reported with result HEMOGRAM (CBC and Platelet)o n 05-07-2017 Erythrocytes (RBC) 17.5 % High 11.6-14.4 [facility] Comment on above: Performed By: #### C BCDFM, CHM7C, HFPC, MGCC ####[place] [address]#### PTPTTC, FT4, FT3, TSH, A1CB ####[place] [address] [place] [address]#### XLIPOB ####Reference lab information reported with result Erythrocytes (RBC) 4.21 10*6/uL Low 4.63-6.08 [facility] Comment on above: Performed By: #### C BCDFM, CHM7C, HFPC, MGCC ####[place] [id number]#### PTPTTC, FT4, FT3, TSH, A1CB ####[facility] [place], [place] [address] [address] [place] [address]#### XLIPOB ####Reference lab information reported with result Hematocrit (HCT) 39.8 % Low 40.1-51.0 [facility] Comment on above: Performed By: #### C BCDFM, CHM7C, HFPC, MGCC ####[place] [address]#### PTPTTC, FT4, FT3, TSH, A1CB ####[facility] [place], [place] [address] [address] [place] [address]#### XLIPOB ####Reference lab information reported with result Hemoglobin mass conc (Bld) 13.2 g/dL Low 13.7-17.5 [facility] Comment on above: Performed By: #### C BCDFM, CHM7C, HFPC, MGCC ####[place] [address]#### PTPTTC, FT4, FT3, TSH, A1CB ####[facility] [place], [place] [address] [address] [place] [address]#### XLIPOB ####Reference lab information reported with result Hemoglobin mass conc (Bld) 33.2 g/dL Normal 32.3-36.5 [facility] Comment on above: Performed By: #### C BCDFM, CHM7C, HFPC, MGCC ####[place] [address]#### PTPTTC, FT4, FT3, TSH, A1CB ####[facility] [place], [place] [address] [address] [place] [address]#### XLIPOB ####Reference lab information reported with result Hemoglobin mass conc (Bld) 31.4 pg Normal 25.7-32.2 [facility] Comment on above: Performed By: #### C BCDFM, CHM7C, HFPC, MGCC ####[place] [address]#### PTPTTC, FT4, FT3, TSH, A1CB ####[facility] [place], [place] [address] [address] [place] [address]#### XLIPOB ####Reference lab information reported with result MCV 94.5 fL High 79.0-92.2 [facility] Comment on above: Performed By: #### C BCDFM, CHM7C, HFPC, CC ####[place] [address]#### PTPTTC, FT4, FT3, TSH, A1CB ####[facility] [place], [place] [address] [address] [place] [address]#### XLIPOB ####Reference lab information reported with result Nucleated erythrocytes 0.0 /100 WBC Normal 0.0-0.2 [facility] Comment on above: Performed By: #### C BCDFM, CHM7C, HFPC, CC ####[place] [address]#### PTPTTC, FT4, FT3, TSH, A1CB ####[facility] [place], [place] [address] [address] [place] [address]#### XLIPOB ####Reference lab information reported with result Platelet mean volume (PMV) NOT MEASURED Normal 9.4-12.4 [facility] Comment on above: Performed By: #### C BCDFM, CHM7C, HFPC, MGCC ####[place] [address]#### PTPTTC, FT4, FT3, TSH, A1CB ####[facility] [place], [place] [address] [address] [place] [address]#### XLIPOB ####Reference lab information reported with result Platelets 109 10*3/uL Low 163-337 [facility] Comment on above: Performed By: #### C BCDFM, CHM7C, HFPC, CC ####[place] [address]#### PTPTTC, FT4, FT3, TSH, A1CB ####[place] [address] [place] [address] [place] [address]#### XLIPOB ####Reference lab information reported with result WBC (Leukocytes) 8.34 10*3/uL Normal 4.23-9.07 [facility] Comment on above: Performed By: #### C BCDFM, CHM7C, HFPC, MGCC ####[place] [address]#### PTPTTC, FT4, FT3, TSH, A1CB ####[place] [address] [place], [place] [id number] [address] [place] [address]#### XLIPOB ####Reference lab information reported with result HEPTEMon 05-07-2017 HEPTEM A10 48 Normal [facility] HEPTEM A20 55 mm Normal [facility] HEPTEM ALPHA 73 Normal [facility] HEPTEM CFT 97 sec Normal [facility] HEPTEM CT 172 sec Normal [facility] HEPTEM LI30 100 Normal [facility] HEPTEM MCF 57 mm Normal [facility] HEPTEM ML 4 Normal [facility] INTEMon 05-07-2017 INTEM A10 48 Normal [facility] INTEM A20 56 mm Normal 51-72 [facility] INTEM ALPHA 72 Normal 70-81 [facility] INTEM CFT 175 sec Normal 122-208 [facility] INTEM CFT 100 sec Normal 45-110 [facility] INTEM LI30 100 Normal [facility] INTEM MAX CT FIRMNESS 58 mm Normal 51-72 [facility] INTEM ML 4 Normal [facility] LAMIN comment LAMIN viscoelastic testing is not FDA approved for the pediatric population (<21 years of age) and the attached reference ranges pertain to adults only. Normal [facility] Inorganic Phosphateon 2017 Inorg Phosphate 4.3 mg/dL Normal 2.2-4.6 [facility] Comment on above: Performed By: #### C BCCARYN, CHM7C, HFPC, MGCC ####[place] [address]#### PTPTTC, FT4, FT3, TSH, A1CB ####[facility] [place] [address] [address] [address]#### XLIPOB ####Reference lab information reported with result Ionized Calciumon 05-07-2017 Ionized Calcium 4.78 mg/dL Normal 4.60-5.30 [facility] Comment on above: Performed By: #### C BCDFM, CHM7C, HFPC, MGCC ####[place] [address]#### PTPTTC, FT4, FT3, TSH, A1CB ####[facility] [place], [place] [address] [address] [place] [address]#### XLIPOB ####Reference lab information reported with result Magnesiumon 05-07-2017 Magnesium 2.4 mg/dL Normal 1.6-2.6 [facility] Comment on above: Performed By: #### C MAIA, INNAC, HFPC, MGCC ####[place] [id number]#### PTPTTC, FT4, FT3, TSH, A1CB ####[place] [address] [place], [place] [address] [address] [place] [address]#### XLIPOB ####Reference lab information reported with result PT*PTTon 05-07-2017 INR Coag RelTime (PPP) 1.2 {INR} High 0.9-1.1 [facility] Comment on above: Performed By: #### C MAIA, INNAC, HFPC, MGCC ####[place] [address]#### PTPTTC, FT4, FT3, TSH, A1CB ####[place] [address] [place], [place] [address] [address] [place] [address]#### XLIPOB ####Reference lab information reported with result Prothrombin time (PT) Coag time (PPP) 15.3 s High 11.9-14.2 [facility] Comment on above: Performed By: #### C JONATHANDFM, TWANM7C, HFPC, MGCC ####[facility], [place] [address]#### PTPTTC, FT4, FT3, TSH, A1CB ####[facility] [place] [address]JzytktAultman Orrville Hospital[address] [place] [address]#### XLIPOB ####Reference lab information reported with result aPTT 35.1 s High 24.0-34.3 [facility] Comment on above: Performed By: #### C BCDFM, CHM7C, [facility], [facility] ####[place] [address]#### PTPTTC, FT4, FT3, TSH, A1CB ####[facility] [place], [place] [address] [address] [place] [address]#### XLIPOB ####Reference lab information reported with result Surgical Pathologyon 018 Surgical Pathology Surgical Pathology ReportPatient Name: FRANK WHITE Rec #: [id number] Physician: JULIETH BARRIENTOS--- Clinical History ---Preoperative Diagnosis: Aortic stenosis with mitral and aorticinsufficiency. Encounter for consultation. History of bleeding ulcers. Medical History: Atherosclerosis of coronary artery. Cigar smoker. Aortic stenosis with mitral and aortic insufficiency. Prematureventricular contractions. Carotid root. Anemia. AV block. Hyperlipidemia. I08.0 Z71.9 Z87.11.---Final Pathologic Diagnosis---A. Aortic valve leaflets, aortic valve replacement:- Valve tissue with nodular calcifications. voge1/PABLO06:05/12/2017 *Electronically Signed ByLamonte Abbott MD05/12/2017 14:01:09Professional Interpretation performed at location: [address] [place] [address]---SPECIMEN(S) RECEIVED:---SOM: Heart valve, excision---GROSS DESCRIPTION:---The specimen is received in one properly labeled container with thepatient's name and accession number.A. The specimen is designated aortic valve leaflet and consistsof a 4.7 x 3.5 x 1.6 cm aggregate of multiple irregular fragments ofmarkedly thickened and calcified valvular tissue. RS 2 Summary of Cassettes: A1-A2, manufacturer representative sections of eachrespective leaflet to include areas of thickening and calcifications Note: Cassettes A1-A2 will be ready following decalcification. Lab Use Only: JobID [id number] Gross description by: Christo Iyer [facility] Comment on above: Performed By: #### C BCDFM, CHM7C, HFPC, MGCC ####[place] [address]#### PTPTTC, FT4, FT3, TSH, A1CB ####[facility] [place] [address] [place] [address] [place] [address]#### XLIPOB ####Reference lab information reported with result TRANSFUSE PLATELETSon 2017 TRANSFUSE PLATELETS CROSSMATCH EXPIRATIO N: 05/08/2017 UNIT NUMBER: [id number] BLOOD COMPONENT TYPE: Platelet Pheresis,Leukoreduced,Ir r_[id number] STATUS OF UNIT: Issued, Final TRANSFUSION STATUS: OK TO TRANSFUSE [facility] Comment on above: Performed By: #### C BCDFM, CHM7C, HFPC, MGCC ####[place] [address]#### PTPTTC, FT4, FT3, TSH, A1CB ####[place] [address] [place] [address] [place] [address]#### XLIPOB ####Reference lab information reported with result XR ABDOMEN 1 VIEW PORTABLEon 05-07-2017 XR ABDOMEN 1 VIEW PORTABLE EXAM: XR ABDOMEN 1 VIEW PORTABLE, 05/07/2017 14:17 PMCOMPARISON: July 05, 2010.CLINICAL INDICATIONS: post operative heart surgery Upon arrival to unit;FINDINGS: Tubes: The side-port of the OG tube is in the distal esophagus and the tip ofthe tube is in the fundus of the stomach. Chest tubes are visualized. No gross free air. There is a non obstructive bowel gas pattern. Noorganomegaly or mass effect. No significant calcific densities or definitestones. Visualized osseous structures are unremarkable for the patient's age.IMPRESSION:Tube positioning as above. If this positioning is not desired, then recommendadvancing the tube 7 to 8 cm. Normal [facility] XR CHEST PORTABLEon 05-07-19 18 XR CHEST PORTABLE EXAM: XR CHEST SABRINA BLE, 05/07/2017 14:17 PMCOMPARISON: PA and lateral chest regressor March 24, 2017.CLINICAL INDICATIONS: postop heart surgeryRELEVANT CLINICAL HISTORY: On arrival to unit.;FINDINGS: (Adequate technique)Life Support Devices: Endotracheal tube placed, tip in the midtrachea.Nasogastric tube courses into the stomach but the tip extends out of [id number]. Mediastinal drain noted at the base centrally. Intervalplacement of a Fiatt-Saqib catheter with tip projected over the main pulmonaryartery.Chest Wall: Median sternotomy wires. Healed right posterolateral sevenththrough ninth rib fractures. No acute osseous abnormalities.Charlene: NormalMediastinum: Stable contour. Pleural Spaces: No definite pleural effusion. No definite pneumothorax.Lungs: ClearCardiac Silhouette: Stable enlargement. Status post aortic valve repair andleft 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 clip. Thoracic Aorta: NormalPulmonary Vessels: Normal, without PVHOther:Surgical clips projected over left upper quadrant consistent with priorgastric bypass surgery.IMPRESSION:1. Life support devices and postop changes, status post aortic valve repair.No complication. I personally viewed and interpreted these images and I have reviewed andapproved this report. Normal [facility] Type and Cross - Pre-Opon Type and Cross - Pre-Op ABO/RH(D): A POSITIVEANTIBODY SCREEN: NEGATIVEUNIT NUMBER: [id number] COMPONENT TYPE: Red Cells, Leukoreduced_[id number] TUS OF UNIT: REL FROM ALLOCTRANSFUSION STATUS: OK TO TRANSFUSECROSSMATCH RESULT: Electronically CompatibleUNIT NUMBER: [id number] COMPONENT TYPE: Red Cells, Leukoreduced_[id number] TUS OF UNIT: REL FROM ALLOCTRANSFUSION STATUS: OK TO TRANSFUSECROSSMATCH RESULT: Electronically CompatibleUNIT NUMBER: [id number] COMPONENT TYPE: Red Cells, Leukoreduced_[id number] TUS OF UNIT: REL FROM ALLOCTRANSFUSION STATUS: OK TO TRANSFUSECROSSMATCH RESULT: Electronically Compatible Normal [facility] Comment on above: Performed By: #### C BCDFM, CHM7C, HFPC, MGCC ####[place] [address]#### PTPTTC, FT4, FT3, TSH, A1CB ####[place] [address]#### XLIPOB ####Reference lab information reported with result NMR LipoProfileon 04-24-2017 Cholesterol 108 mg/dL Normal 100-199 [facility] Comment on above: Performed By: #### C BCDFM, CHM7C, HFPC, MGCC ####[place] [address]#### PTPTTC, FT4, FT3, TSH, A1CB ####[place] [address]#### XLIPOB ####Reference lab information reported with result HDL Cholesterol 25 mg/dL Low >39 [facility] Comment on above: Performed By: #### C BCDFM, CHM7C, HFPC, MGCC ####[address] [place], [place] [address]#### PTPTTC, FT4, FT3, TSH, A1CB ####[facility] [place] [address]DixbobAultman Orrville Hospital[address] [place], [place] [address]#### XLIPOB ####Reference lab information reported with result HDL Cholesterol 18.4 umol/L Low >=30.5 [facility] Comment on above: Performed By: #### C BCDFM, CHM7C, HFPC, MGCC ####[place] [id number]#### PTPTTC, FT4, FT3, TSH, A1CB ####[facility] [place], [place] [address]MzbygoAultman Orrville Hospital[address] [place] [address]#### XLIPOB ####Reference lab information reported with result HDL Cholesterol 9.3 nm Normal >=9.2 [facility] Comment on above: Performed By: #### C BCDFM, CHM7C, HFPC, MGCC ####[facility], [place] [id number]#### PTPTTC, FT4, FT3, TSH, A1CB ####[facility] [place] [address]JswzcoAultman Orrville Hospital[address] [place] [address]#### XLIPOB ####Reference lab information reported with result HDL Cholesterol 4.2 umol/L Low >=4.8 [facility] Comment on above: Performed By: #### C BCDFM, CHM7C, HFPC, MGCC ####[facility], [place] [address]#### PTPTTC, FT4, FT3, TSH, A1CB ####[facility] [place] [address]LowxoeAultman Orrville Hospital[address] [place] [address]#### XLIPOB ####Reference lab information reported with result Large VLDL-P 5.5 nmol/L High <=2.7 [facility] Comment on above: Performed By: #### C BCDFM, CHM7C, HFPC, MGCC ####[place] [address]#### PTPTTC, FT4, FT3, TSH, A1CB ####[place] [address] [place] [address]#### XLIPOB ####Reference lab information reported with result LDL Cholesterol 47 mg/dL Normal 0-99 [facility] Comment on above: Result Comment: (NOT E) . Optimal < 100 Above optimal 100 - 129 Borderline 130 - 159 High 160 - 189 Very high > 189 . .LDL-C is inaccurate if patient is non-fasting. Performed By: #### C BCDFM, CHM7C, HFPC, MGCC ####[place] [address]#### PTPTTC, FT4, FT3, TSH, A1CB ####[place] [id number] [address]#### XLIPOB ####Reference lab information reported with result LDL Particle Size 20.1 nm Normal >=20.8 [facility] Comment on above: Performed By: #### C BCDFM, CHM7C, HFPC, MGCC ####[place] [address]#### PTPTTC, FT4, FT3, TSH, A1CB ####[address] [place] [address]HvmeghAultman Orrville Hospital[address] [place] [address]#### XLIPOB ####Reference lab information reported with result LDL Size 20.1 nm Normal >20.5 [facility] Comment on above: Result Comment: (NOTE) -- INTERPRETATIVE INFORMATION PARTICLE CONCENTRATION AND SIZE <--Lower CVD Risk Higher CVD Risk--> LDL AND HDL PARTICLES Percentile in Reference Population HDL-P (total) High 75th 50th 25th Low >34.9 34.9 30.5 26.7 <26.7 . Small LDL-P Low 25th 50th 75th High <117 117 527 839 >839 . LDL Size <-Large (Pattern A)-> <-Small (Pattern B)-> 23.0 20.6 20.5 19.0 .Small LDL-P and LDL Size are associated with CVD risk, butnot after LDL-P is taken into account. .These assays were developed and their performancecharacteristics determined by [employer]. These assayshave not been cleared by the US Food and DrugAdministration. The clinical utility of these laboratoryvalues have not been fully established. Performed By: #### C BCDFM, CHM7C, HFPC, MGCC ####[place] [address]#### PTPTTC, FT4, FT3, TSH, A1CB ####[facility] [place], [place] [address]XdnfvyAultman Orrville Hospital[address] [place] [address]#### XLIPOB ####Reference lab information reported with result LDL-P (LDL Particle Number) 673 nmol/L Normal <1000 [facility] Comment on above: Result Comment: (NOT E) Low < 1000 Moderate 1000 - 1299 Borderline-High 1300 - 1599 High 1600 - 2000 Very High > 2000 Performed By: #### C BCDFM, CHM7C, HFPC, MGCC ####[facility], [place] [address]#### PTPTTC, FT4, FT3, TSH, A1CB ####[facility] [place], [place] [address]OxggzhAultman Orrville Hospital[address] [place] [address]#### XLIPOB ####Reference lab information reported with result LP-IR SCORE 55 High <=45 [facility] Comment on above: Result Comment: (NOTE) -- INSULIN RESISTANCE / DIABETES RISK MARKERS <--Insulin [...] 75th High <27 27 45 63 >63 .LP-IR Score is inaccurate if patient is non-fasting. .The LP-IR score is a laboratory developed index that hasbeen associated with insulin resistance and diabetes riskand should be used as one component of a physician'sclinical assessment. Neither the LP-IR score nor thesubclasses listed above have been cleared by the US Foodand Drug Administration.Test Performed by:[address] [id number] Performed By: #### C BCDFM, CHM7C, HFPC, MGCC ####[place] [address]#### PTPTTC, FT4, FT3, TSH, A1CB ####[place] [address] [place] [address]#### XLIPOB ####Reference lab information reported with result Small LDL-P 381 nmol/L Normal <=527 [facility] Comment on above: Performed By: #### C BCDFM, CHM7C, HFPC, MGCC ####[place] [address]#### PTPTTC, FT4, FT3, TSH, A1CB ####[place] [address]#### XLIPOB ####Reference lab information reported with result Triglyceride 180 mg/dL High 0-149 [facility] Comment on above: Performed By: #### C BCDFM, CHM7C, HFPC, MGCC ####[place] [address]#### PTPTTC, FT4, FT3, TSH, A1CB ####[address] [facility] [address] [place], [place] [address]#### XLIPOB ####Reference lab information reported with result VLDL Size 48.0 nm High <=46.6 [facility] Comment on above: Performed By: #### C BCDFM, CHM7C, HFPC, MGCC ####[facility], [address] [address]#### PTPTTC, FT4, FT3, TSH, A1CB ####[facility] [place], [place] [address]CbnwsbAultman Orrville Hospital[address] [place] [address]#### XLIPOB ####Reference lab information reported with result URINE CULTURE -UHEon 04-22-2 018 URINE CULTURE -UHE ---- -----SOURCE:URINE-CLEAN CATCH: RESULT:NO SIGNIFICANT GROWTH. Routine cultures are evaluated for significant uropathogens >10,000 CFU/mL. REPORT STATUS:04/22/2017 FINAL Normal [facility] Comment on above: Performed By: #### C BCDFM, CHM7C, HFPC, CC ####[place] [address]#### PTPTTC, FT4, FT3, TSH, A1CB ####[facility] [place], [place] [address] [address] [place] [address]#### XLIPOB ####Reference lab information reported with result CBC WITH DIFF [facility] Abs Baso 0.03 K/uL Normal 0.01-0.08 [facility] Comment on above: Performed By: #### C BCDFM, CHM7C, HFPC, CC ####[place] [address]#### PTPTTC, FT4, FT3, TSH, A1CB ####[facility] [place], [place] [address] [address] [place] [address]#### XLIPOB ####Reference lab information reported with result Abs Eos 0.01 K/uL Low 0.04-0.54 [facility] Comment on above: Performed By: #### C BCDFM, CHM7C, HFPC, MGCC ####[place] [address]#### PTPTTC, FT4, FT3, TSH, A1CB ####[facility] [place], [place] [address] [address] [place] [address]#### XLIPOB ####Reference lab information reported with result Abs Chaves 0.45 K/uL Normal 0.30-0.82 [facility] Comment on above: Performed By: #### C BCDFM, CHM7C, HFPC, MGCC ####[place] [address]#### PTPTTC, FT4, FT3, TSH, A1CB ####[facility] [place] [address]NsaglmAultman Orrville Hospital[address] [place], [place] [address]#### XLIPOB ####Reference lab information reported with result Basophils/100 WBC Auto (Bld) 0.5 % Normal [facility] Comment on above: Performed By: #### C BCDFM, CHM7C, HFPC, MGCC ####[place] [id number]#### PTPTTC, FT4, FT3, TSH, A1CB ####[facility] [place], [place] [address] [place] [address]#### XLIPOB ####Reference lab information reported with result DIFFERENTIAL TYPE Electronic Differential Normal [facility] Comment on above: Performed By: #### C BCDFM, CHM7C, HFPC, MGCC ####[place] [address]#### PTPTTC, FT4, FT3, TSH, A1CB ####[facility] [place], [place] [address] [place] [address]#### XLIPOB ####Reference lab information reported with result Eosinophils/100 leukocytes 0.2 % Normal [facility] Comment on above: Performed By: #### C BCDFM, CHM7C, HFPC, MGCC ####[place] [id number]#### PTPTTC, FT4, FT3, TSH, A1CB ####[facility] [place], [place] [address] [place] [address]#### XLIPOB ####Reference lab information reported with result Erythrocytes (RBC) 4.78 10*6/uL Normal 4.63-6.08 [facility] Comment on above: Performed By: #### C BCDFM, CHM7C, HFPC, MGCC ####[place] [address]#### PTPTTC, FT4, FT3, TSH, A1CB ####[facility] [place], [place] [address] [place] [address]#### XLIPOB ####Reference lab information reported with result Erythrocytes (RBC) 17.7 % High 11.6-14.4 [facility] Comment on above: Performed By: #### C BCDFM, CHM7C, [facility], [facility] ####[place] [address]#### PTPTTC, FT4, FT3, TSH, A1CB ####[place] [address] [place] [address] [place] [address]#### XLIPOB ####Reference lab information reported with result Hematocrit (HCT) 44.4 % Normal 40.1-51.0 [facility] Comment on above: Performed By: #### C BCDFM, CHM7C, [facility], [facility] ####[place] [address]#### PTPTTC, FT4, FT3, TSH, A1CB ####[place] [address] [place], [place] [address] [place] [address]#### XLIPOB ####Reference lab information reported with result Hemoglobin mass conc (Bld) 14.6 g/dL Normal 13.7-17.5 [facility] Comment on above: Performed By: #### C BCDFM, CHM7C, HFPC, MGCC ####[place] [address]#### PTPTTC, FT4, FT3, TSH, A1CB ####[place] [address] [place], [place] [address] [place] [address]#### XLIPOB ####Reference lab information reported with result Hemoglobin mass conc (Bld) 30.5 pg Normal 25.7-32.2 [facility] Comment on above: Performed By: #### C BCDFM, CHM7C, HFPC, MGCC ####[place] [address]#### PTPTTC, FT4, FT3, TSH, A1CB ####[place] [address] [place], [place] [address] [place] [address]#### XLIPOB ####Reference lab information reported with result Hemoglobin mass conc (Bld) 32.9 g/dL Normal 32.3-36.5 [facility] Comment on above: Performed By: #### C BCDFM, TWANM7C, HFPC, MGCC ####[place] [address]#### PTPTTC, FT4, FT3, TSH, A1CB ####[place] [address] [place] [address] [place] [address]#### XLIPOB ####Reference lab information reported with result IMMATURE GRANS % 0.3 % Normal [facility] Comment on above: Performed By: #### C BCDFM, CHM7C, HFPC, MGCC ####[place] [address]#### PTPTTC, FT4, FT3, TSH, A1CB ####[facility] [place], [place] [address] [place] [address]#### XLIPOB ####Reference lab information reported with result IMMATURE GRANS ABSOLUTE 0.02 K/uL Normal 0.00-0.03 [facility] Comment on above: Performed By: #### C BCDFM, CHM7C, HFPC, MGCC ####[place] [address]#### PTPTTC, FT4, FT3, TSH, A1CB ####[place] [address] [place], [place] [address] [place] [address]#### XLIPOB ####Reference lab information reported with result Lymphocytes 2.07 10*3/uL Normal 1.32-3.57 [facility] Comment on above: Performed By: #### C BCDFM, CHM7C, [facility], [facility] ####[place] [address]#### PTPTTC, FT4, FT3, TSH, A1CB ####[place] [address] [place] [address]#### XLIPOB ####Reference lab information reported with result Lymphocytes/100 leukocytes 32.2 % Normal [facility] Comment on above: Performed By: #### C BCDFM, CHM7C, HFPC, MGCC ####[place] [address]#### PTPTTC, FT4, FT3, TSH, A1CB ####[facility] [place] [address]FgpbrtAultman Orrville Hospital[address] [place] [address]#### XLIPOB ####Reference lab information reported with result MCV 92.9 fL High 79.0-92.2 [facility] Comment on above: Performed By: #### C BCDFM, CHM7C, HFPC, MGCC ####[place] [address]#### PTPTTC, FT4, FT3, TSH, A1CB ####[facility] [place] [address] [place], [place] [address] [address] [place] [address]#### XLIPOB ####Reference lab information reported with result Monocytes/100 leukocytes 7.0 % Normal [facility] Comment on above: Performed By: #### C BCDFM, CHM7C, HFPC, MGCC ####[place] [address]#### PTPTTC, FT4, FT3, TSH, A1CB ####[facility] [place] [address]PmdlypAultman Orrville Hospital[address] [place], [place] [address]#### XLIPOB ####Reference lab information reported with result NEUTROPHIL SEGMENTED 59.8 % Normal [facility] Comment on above: Performed By: #### C BCDFM, CHM7C, HFPC, MGCC ####[place] [id number]#### PTPTTC, FT4, FT3, TSH, A1CB ####[facility] [place] [address]LpgodmAultman Orrville Hospital[address] [place], [place] [address]#### XLIPOB ####Reference lab information reported with result Nucleated erythrocytes 0.0 /100 WBC Normal 0.0-0.2 [facility] Comment on above: Performed By: #### C MAIA, [place], [facility], [facility] ####[place] [address]#### PTPTTC, FT4, FT3, TSH, A1CB ####[place] [address] [place], [place] [address] [place] [address]#### XLIPOB ####Reference lab information reported with result Platelet mean volume (PMV) 9.3 fL Low 9.4-12.4 [facility] Comment on above: Performed By: #### C MAAI, [place], [facility], [facility] ####[place] [address]#### PTPTTC, FT4, FT3, TSH, A1CB ####[place] [address] [place], [place] [address] [place] [address]#### XLIPOB ####Reference lab information reported with result Platelets 197 10*3/uL Normal 163-337 [facility] Comment on above: Performed By: #### C MAIA, [place], [facility], [facility] ####[place] [address]#### PTPTTC, FT4, FT3, TSH, A1CB ####[place] [address] [place] [address] [place] [address]#### XLIPOB ####Reference lab information reported with result SEGS + Bands,Absolute 3.84 K/uL Normal 1.78-5.38 [facility] Comment on above: Performed By: #### C BCDFM, CHM7C, HFPC, MGCC ####[place] [address]#### PTPTTC, FT4, FT3, TSH, A1CB ####[facility] [place], [place] [address] [place] [address]#### XLIPOB ####Reference lab information reported with result WBC (Leukocytes) 6.42 10*3/uL Normal 4.23-9.07 [facility] Comment on above: Performed By: #### C BCDFM, CHM7C, HFPC, MGCC ####[place] [address]#### PTPTTC, FT4, FT3, TSH, A1CB ####[place] [address] [place], [place] [address] [place] [address]#### XLIPOB ####Reference lab information reported with result Chem [address] - [address] Labon -2 Anion gap 6 mmol/L Low 7-17 [facility] Comment on above: Performed By: #### C BCDFM, CHM7C, HFPC, MGCC ####[place] [address]#### PTPTTC, FT4, FT3, TSH, A1CB ####[place] [address] [place], [place] [address] [place] [address]#### XLIPOB ####Reference lab information reported with result Chloride 105 mmol/L Normal 98-108 [facility] Comment on above: Performed By: #### C BCDFM, CHM7C, HFPC, MGCC ####[address] [place] [address]#### PTPTTC, FT4, FT3, TSH, A1CB ####[facility] [place] [address]TkwxctAultman Orrville Hospital[address] [place], [place] [address]#### XLIPOB ####Reference lab information reported with result CO2 28 mmol/L Normal 22-30 [facility] Comment on above: Performed By: #### C BCDFM, CHM7C, HFPC, MGCC ####[place] [address]#### PTPTTC, FT4, FT3, TSH, A1CB ####[facility] [place], [place] [address] [place] [address]#### XLIPOB ####Reference lab information reported with result Creatinine 0.86 mg/dL Normal 0.70-1.30 [facility] Comment on above: Performed By: #### C BCDFM, CHM7C, HFPC, MGCC ####[place] [address]#### PTPTTC, FT4, FT3, TSH, A1CB ####[place] [address] [place], [place] [address]10[facility] [place] [address]#### XLIPOB ####Reference lab information reported with result eGFR (non-black) mL/min/{1.73_m2} Normal >60 [facility] [facility] Comment on above: Performed By: #### C BCDFM, CHM7C, HFPC, MGCC ####[place] [address]#### PTPTTC, FT4, FT3, TSH, A1CB ####[place] [address] [place], [place] [id number] [address] [place] [address]#### XLIPOB ####Reference lab information reported with result Glucose mass conc 84 mg/dL Normal 70-99 [facility] Comment on above: Performed By: #### C BCDFM, CHM7C, HFPC, MGCC ####[place] [address]#### PTPTTC, FT4, FT3, TSH, A1CB ####[facility] [place], [place] [id number] [address] [place] [address]#### XLIPOB ####Reference lab information reported with result Osmolality 282 mOsm/kg Normal 278-305 [facility] Comment on above: Performed By: #### C BCDFM, CHM7C, HFPC, MGCC ####[place] [address]#### PTPTTC, FT4, FT3, TSH, A1CB ####[facility] [place], [place] [id number] [address] [place] [address]#### XLIPOB ####Reference lab information reported with result Potassium molar conc 4.5 mmol/L Normal 3.5-5.0 [facility] Comment on above: Performed By: #### C BCDFM, CHM7C, HFPC, MGCC ####[place] [id number]#### PTPTTC, FT4, FT3, TSH, A1CB ####[facility] [place], [place] [address] [address] [place] [address]#### XLIPOB ####Reference lab information reported with result Sodium 134 mmol/L Normal 133-143 [facility] Comment on above: Performed By: #### C JONATHANDFM, CHM7C, HFPC, MGCC ####[place] [address]#### PTPTTC, FT4, FT3, TSH, A1CB ####[place] [address] [place], [place] [id number] [address] [place] [address]#### XLIPOB ####Reference lab information reported with result Urea nitrogen 14 mg/dL Normal 7-22 [facility] Comment on above: Performed By: #### C MAIA, TWANM7C, HFPC, CC ####[place] [address]#### PTPTTC, FT4, FT3, TSH, A1CB ####[place] [address] [place], [place] [id number] [address] [place] [address]#### XLIPOB ####Reference lab information reported with result Free T3on 04-20-2017 Triiodothyronine (T3) free 2.1 pg/mL Low 2.3-4.2 [facility] Comment on above: Performed By: #### C MAIA, TWANM7C, HFPC, CC ####[place] [address]#### PTPTTC, FT4, FT3, TSH, A1CB ####[place] [address] [place] [address] [place] [address]#### XLIPOB ####Reference lab information reported with result Free T4on 04-20-2017 Thyroxine (T4) free 1.21 ng/dL Normal 0.89-1.76 [facility] Comment on above: Performed By: #### C MAIA, CHM7C, HFPC, MGCC ####[place] [address]#### PTPTTC, FT4, FT3, TSH, A1CB ####[facility] [place] [address] [place], [place] [id number] [address] [place] [address]#### XLIPOB ####Reference lab information reported with result Hemoglobin A1con 04-20-2017 Glucose mass conc 105 mg/dL Normal [facility] Comment on above: Performed By: #### C BCDFM, CHM7C, HFPC, MGCC ####[place] [address]#### PTPTTC, FT4, FT3, TSH, A1CB ####[place] [address] [place], [place] [id number] [address] [place] [address]#### XLIPOB ####Reference lab information reported with result Hemoglobin A1c/Hemoglobin.total mass fraction (Bld) 5.3 % Normal 4.7-5.6 [facility] Comment on above: Performed By: #### C BCDFM, CHM7C, HFPC, MGCC ####[place] [address]#### PTPTTC, FT4, FT3, TSH, A1CB ####[place] [address] [place], [place] [address] [address] [place] [address]#### XLIPOB ####Reference lab information reported with result Hepatic Function Panel - Sukhi dc Rdon 04-20-2017 Alanine aminotransferase (ALT) 18 U/L Normal 10-52 [facility] Comment on above: Performed By: #### C BCDFM, CHM7C, HFPC, MGCC ####[facility], [place] [id number]#### PTPTTC, FT4, FT3, TSH, A1CB ####[facility] [address]KikbxgAultman Orrville Hospital[address] [place] [address]#### XLIPOB ####Reference lab information reported with result Albumin 3.6 g/dL Normal 3.5-5.0 [facility] Comment on above: Performed By: #### C BCDFM, CHM7C, HFPC, MGCC ####[place] [address]#### PTPTTC, FT4, FT3, TSH, A1CB ####[facility] [place], [place] [address] [address] [place] [address]#### XLIPOB ####Reference lab information reported with result Alkaline phosphatase (ALP) 165 U/L High 32-126 [facility] Comment on above: Performed By: #### C BCDFM, CHM7C, HFPC, MGCC ####[place] [address]#### PTPTTC, FT4, FT3, TSH, A1CB ####[place] [address] [place] [id number] [place] [address]#### XLIPOB ####Reference lab information reported with result Aspartate aminotransferase (AST) 28 U/L Normal 14-40 [facility] Comment on above: Performed By: #### C BCDFM, CHM7C, HFPC, MGCC ####[place] [address]#### PTPTTC, FT4, FT3, TSH, A1CB ####[facility] [place] [address]XpednjAultman Orrville Hospital[address] [place] [address]#### XLIPOB ####Reference lab information reported with result Bilirubin (direct) 0.2 mg/dL Normal <0.3 [facility] Comment on above: Performed By: #### C BCDFM, CHM7C, HFPC, MGCC ####[facility], [place] [id number]#### PTPTTC, FT4, FT3, TSH, A1CB ####[facility] [place] [address]MxbrckAultman Orrville Hospital[address] [place], [place] [address]#### XLIPOB ####Reference lab information reported with result Bilirubin (total) 0.5 mg/dL Normal <1.5 [facility] Comment on above: Performed By: #### C BCDFM, CHM7C, HFPC, MGCC ####[place] [id number]#### PTPTTC, FT4, FT3, TSH, A1CB ####[facility] [place] [address]BdyycjAultman Orrville Hospital[address] [place] [address]#### XLIPOB ####Reference lab information reported with result Protein 8.3 g/dL Normal 6.4-8.3 [facility] Comment on above: Performed By: #### C BCDFM, CHM7C, HFPC, MGCC ####[place] [id number]#### PTPTTC, FT4, FT3, TSH, A1CB ####[facility] [place] [address]TenmwxAultman Orrville Hospital[address] [place], [place] [address]#### XLIPOB ####Reference lab information reported with result Magnesium - [facility] 0 04-20-2017 Magnesium 1.9 mg/dL Normal 1.6-2.6 [facility] Comment on above: Performed By: #### C [facility] CARVALHO, [facility], CC ####[facility], [place] [address]#### PTPTTC, FT4, FT3, TSH, A1CB ####[facility] [place], [place] [address] [address] [place] [address]#### XLIPOB ####Reference lab information reported with result PT/PTT - [facility] 018 aPTT 38.0 s High 24.0-34.3 [facility] Comment on above: Performed By: #### C [facility] CARVALHO, [facility], [facility] ####[facility], [place] [address]#### PTPTTC, FT4, FT3, TSH, A1CB ####[place] [address] [place], [place] [address] [address] [place] [address]#### XLIPOB ####Reference lab information reported with result INR Coag RelTime (PPP) 1.0 {INR} Normal 0.9-1.1 [facility] Comment on above: Performed By: #### C MAIA, [place], [facility], [facility] ####[place] [address]#### PTPTTC, FT4, FT3, TSH, A1CB ####[facility] [place], [place] [address] [address] [place] [address]#### XLIPOB ####Reference lab information reported with result Prothrombin time (PT) Coag time (PPP) 13.2 s Normal 11.9-14.2 [facility] Comment on above: Performed By: #### C [facility] CAR[facility], [facility], [facility] ####[place] [address]#### PTPTTC, FT4, FT3, TSH, A1CB ####[place] [address] [place] [address] [place] [address]#### XLIPOB ####Reference lab information reported with result Screen: Resp Staph (high ris k surgery) - Eon 04-20-2017 Screen: Resp Staph (high risk surgery) - E NARES:NegativeNegative This test was performed using a real time PCR assay. Results should be interpreted in conjunction with other clinical and laboratory findings. A positive result does not necessarily indicate the presence of viable organism. This test should not be used as a test of cure. For E-swab specimens, this test was developed and its performance characteristics determined by the Clinical Microbiology Laboratory at [facility]. It has not been cleared or approved by the FDA.The laboratory is regulated under CLIA as qualified to perform high-complexity testing. This test is used for clinical purposes. It should not be regarded as investigational or for research. Normal [facility] Comment on above: Performed By: #### C MAIA, [place], [facility], [facility] ####[place] [address]#### PTPTTC, FT4, FT3, TSH, A1CB ####[place] [address] [place] [address] [place] [address]#### XLIPOB ####Reference lab information reported with result [facility] (TSH) 3.366 uIU/mL Normal 0.550-4.780 [facility] Comment on above: Performed By: #### C BCDFM, CHM7C, HFPC, MGCC ####[facility], [place] [id number]#### PTPTTC, FT4, FT3, TSH, A1CB ####[facility] [place] [address]UqqijkAultman Orrville Hospital[address] [place] [address]#### XLIPOB ####Reference lab information reported with result URINALYSIS - [facility] 04-20-2017 COMMENT URINE Yeast Normal [facility] Comment on above: Performed By: #### C BCDFM, CHM7C, HFPC, MGCC ####[facility], [place] [id number]#### PTPTTC, FT4, FT3, TSH, A1CB ####[facility] [place] [address]JerciwAultman Orrville Hospital[address] [place] [address]#### XLIPOB ####Reference lab information reported with result Squamous Epithelial 1+ /HPF Normal [facility] Comment on above: Performed By: #### C BCDFM, CHM7C, HFPC, MGCC ####[place] [id number]#### PTPTTC, FT4, FT3, TSH, A1CB ####U [facility] [place] [id number] Orrville Hospital[address] [place], [place] [address]#### XLIPOB ####Reference lab information reported with result Urine, bacteria in sediment Present Abnormal Absent [facility] Comment on above: Performed By: #### C BCDFM, CHM7C, HFPC, MGCC ####[facility], [place] [id number]#### PTPTTC, FT4, FT3, TSH, A1CB ####[facility] [place] [address]VwpwfrAultman Orrville Hospital[address] [place] [address]#### XLIPOB ####Reference lab information reported with result Urine, erythrocytes in sediment by area 0-2 Normal 0-2 [facility] Comment on above: Performed By: #### C BCDFM, CHM7C, HFPC, MGCC ####[place] [id number]#### PTPTTC, FT4, FT3, TSH, A1CB ####[facility] [place] [address]IumtgoAultman Orrville Hospital[address] [place] [address]#### XLIPOB ####Reference lab information reported with result Urine, leukocytes in sedmiment 0-5 Normal 0-5 [facility] Comment on above: Performed By: #### C BCDFM, CHM7C, HFPC, MGCC ####[place] [id number]#### PTPTTC, FT4, FT3, TSH, A1CB ####[facility] [place] [address]VbhwfaAultman Orrville Hospital[address] [place], [place] [address]#### XLIPOB ####Reference lab information reported with result Blood Urine Moderate Abnormal Negative [facility] Comment on above: Performed By: #### C BCDFM, CHM7C, HFPC, MGCC ####[place] [id number]#### PTPTTC, FT4, FT3, TSH, A1CB ####[facility] [place] [address]EgeetwAultman Orrville Hospital[address] [place], [place] [address]#### XLIPOB ####Reference lab information reported with result Nitrites Urine Negative Normal Negative [facility] Comment on above: Performed By: #### C BCDFM, CHM7C, HFPC, MGCC ####[facility], [place] [id number]#### PTPTTC, FT4, FT3, TSH, A1CB ####[facility] [place] [address] [place], [place] [id number] [address] [place] [address]#### XLIPOB ####Reference lab information reported with result Protein Urine 100 mg/dL Abnormal Negative [facility] Comment on above: Performed By: #### C BCDFM, CHM7C, HFPC, MGCC ####[place] [address]#### PTPTTC, FT4, FT3, TSH, A1CB ####[facility] [place], [place] [address] [address] [place] [address]#### XLIPOB ####Reference lab information reported with result Specific [place] urine 1.025 Normal 1.001-1.035 [facility] Comment on above: Performed By: #### C BCDFM, CHM7C, HFPC, MGCC ####[place] [id number]#### PTPTTC, FT4, FT3, TSH, A1CB ####[facility] [place], [place] [address] [address] [place] [address]#### XLIPOB ####Reference lab information reported with result Urine, appearance Cloudy Abnormal Clear [facility] Comment on above: Performed By: #### C BCDFM, CHM7C, HFPC, MGCC ####[facility], [address] [place] [address]#### PTPTTC, FT4, FT3, TSH, A1CB ####[facility] [place] [address]LlkdxmAultman Orrville Hospital[address] [place] [address]#### XLIPOB ####Reference lab information reported with result Urine, color Yellow Normal YEL,DKYEL [facility] Comment on above: Performed By: #### C BCDFM, CHM7C, HFPC, MGCC ####[place] [id number]#### PTPTTC, FT4, FT3, TSH, A1CB ####[facility] [place] [address]DaqlbgAultman Orrville Hospital[address] [place], [place] [address]#### XLIPOB ####Reference lab information reported with result Urine, glucose presence Negative Normal Negative [facility] Comment on above: Performed By: #### C BCDFM, CHM7C, HFPC, MGCC ####[facility], [place] [id number]#### PTPTTC, FT4, FT3, TSH, A1CB ####[facility] [place] [address]GlfjmdAultman Orrville Hospital[address] [place] [address]#### XLIPOB ####Reference lab information reported with result Urine, ketones presence Negative Normal Negative O [facility] Comment on above: Performed By: #### C BCDFM, CHM7C, HFPC, MGCC ####[place] [id number]#### PTPTTC, FT4, FT3, TSH, A1CB ####[facility] [place], [place] [address] [address] [place] [address]#### XLIPOB ####Reference lab information reported with result Urine, leukocyte esterase presence Negative Normal Negative [facility] Comment on above: Performed By: #### C BCDFM, CHM7C, HFPC, MGCC ####[place] [address]#### PTPTTC, FT4, FT3, TSH, A1CB ####[facility] [place], [place] [address] [address] [place] [address]#### XLIPOB ####Reference lab information reported with result Urine, pH 5.5 [pH] Normal 5.0-7.0 [facility] Comment on above: Performed By: #### C BCDFM, CHM7C, HFPC, MGCC ####[place] [address]#### PTPTTC, FT4, FT3, TSH, A1CB ####[facility] [place], [place] [address] [address] [place] [address]#### XLIPOB ####Reference lab information reported with result Urobilinogen urine 1.0 EU/dL Normal <2.0 [facility] Comment on above: Performed By: #### C BCDFM, CHM7C, HFPC, MGCC ####[place] [address]#### PTPTTC, FT4, FT3, TSH, A1CB ####[facility] [place], [place] [address] [address] [place] [address]#### XLIPOB ####Reference lab information reported with result 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 Left ventricular Ejection fraction 65 % Invalid Interpretation Code [employer] Work Phone: [phone] Replaced Document: Lipid Pro fileon 12-20-2016 Cholesterol 102 mg/dL Invalid Interpretation Code 200 [employer] Work Phone: [phone] HDL Cholesterol 35 mg/dL Low [employer] Work Phone: [phone] LDL Cholesterol 39 mg/dL Invalid Interpretation Code 0-130 [employer] Work Phone: [phone] Triglyceride 139 mg/dL Invalid Interpretation Code [employer] Work Phone: [phone] very low density lipoproteins 28 mg/dL Invalid Interpretation Code 5-40 [employer] Work Phone: [phone] Replaced Document: Liver Pro fileon 12-20-2016 Alanine aminotransferase (ALT) 21 U/L Invalid Interpretation Code 12-78 [employer] Work Phone: [phone] Albumin 3.3 g/dL Low 3.4-5.0 [employer] Work Phone: [phone] Alkaline phosphatase (ALP) 168 U/L High 45-117 [employer] Work Phone: [phone] Aspartate aminotransferase (AST) 23 U/L Invalid Interpretation Code 15-37 [employer] Work Phone: [phone] Bilirubin (direct) 0.20 mg/dL Invalid Interpretation Code 0.00-0.30 [employer] Work Phone: [phone] Bilirubin (total) 0.40 mg/dL Invalid Interpretation Code 0.20-1.00 [employer] Work Phone: [phone] Globulin 4.5 g/dL High 2.3-3.5 [employer] Work Phone: [phone] Protein 7.8 g/dL Invalid Interpretation Code 6.4-8.2 [employer] Work Phone: [phone] Office Visiton 02-04-2016 Dietary management education, guidance, and counseling (procedure) yes Invalid Interpretation Code [employer] Work Phone: [phone] Documentation of current medications (procedure) Done Invalid Interpretation Code [employer] Work Phone: [phone] Lab Report: Basic Metabolic Profile (BMP)on 01-11-2016 Anion gap 6 mmol/L Invalid Interpretation Code 5-15 [employer] Work Phone: [phone] BUN/Creatinine Ratio 15.6 RATIO Invalid Interpretation Code 10-20 [employer] Work Phone: [phone] Calcium 9.5 mg/dL Invalid Interpretation Code 8.5-10.1 [employer] Work Phone: [phone] Chloride 107 mmol/L Invalid Interpretation Code 98-107 [employer] Work Phone: [phone] CO2 28.0 mmol/L Invalid Interpretation Code 21.0-32.0 [employer] Work Phone: [phone] Creatinine 0.77 mg/dL Invalid Interpretation Code 0.70-1.30 [employer] Work Phone: [phone] eGFR (non-black) 110 mL/min/{1.73_m2} Invalid Interpretation Code >60 [employer] Work Phone: [phone] eGFR (non-black) 133 mL/min/{1.73_m2} Invalid Interpretation Code >60 [employer] Work Phone: [phone] Glucose mass conc 105 mg/dL Invalid Interpretation Code 70-110 [employer] Work Phone: [phone] Potassium molar conc 4.5 mmol/L Invalid Interpretation Code 3.5-5.1 [employer] Work Phone: [phone] Sodium 141 mmol/L Invalid Interpretation Code 136-145 [employer] Work Phone: [phone] Urea nitrogen 12 mg/dL Invalid Interpretation Code 7-18 [employer] Work Phone: [phone] Lab Report: CBC-Complete Blo od Cnt No Diffon 01-11-2016 Erythrocyte distribution width Auto Ratio (RBC) 13.3 % Invalid Interpretation Code 11.6-14.6 [employer] Work Phone: [phone] Erythrocytes (RBC) 4.67 10*6/uL Invalid Interpretation Code 4.6-6.2 [employer] Work Phone: [phone] Hematocrit (HCT) 45.9 % Invalid Interpretation Code 40-54 [employer] Work Phone: [phone] Hemoglobin mass conc (Bld) 15.6 g/dL Invalid Interpretation Code 13.0-16.5 [employer] Work Phone: [phone] MCH 33.4 pg High 27.0-32.0 [employer] Work Phone: [phone] MCHC mass conc (RBC) 34.0 G/GL Invalid Interpretation Code 32-36 [employer] Work Phone: [phone] MCV 98.3 fL High 80-94 [employer] Work Phone: [phone] Platelets 163 10*3/mm3 Invalid Interpretation Code 150-450 [employer] Work Phone: [phone] PMV by Sara 10.3 fL Invalid Interpretation Code 6.2-12.0 [employer] Phone: [phone] RDW SD 47.4 fL High 35.1-43.9 [employer] Work Phone: [phone] WBC (Leukocytes) 6.5 10*3/uL Invalid Interpretation Code 4.4-11.0 [employer] Work Phone: [phone]) Lab Report: Thyroid Stim Hor aswhini (TSH)on 01-11-2016 Thyroid stimulating hormone (TSH) 0.06 u[iU]/mL Low 0.358-3.74 [employer] Phone: [phone] Office Visiton 01-22-2015 cardiac risk group C Invalid Interpretation Code [employer] Phone: [phone] General cardiovascular disease 10Y risk [#] [place].Josefina'Agostrio N/A Invalid Interpretation Code [employer] Phone: [phone] Smoking cessation education (procedure) yes Invalid Interpretation Code [employer] Phone: [phone] Tobacco use CPHS Light tobacco smoker Invalid Interpretation Code [employer] Phone: [phone] Replaced Document: Midmark E CG Observationson 01-22-2015 EKG QRS axis 52 deg Invalid Interpretation Code [employer] Phone: [phone] Interpretation Sinus Bradycardia - frequent PAC s # PACs = 2.-RSR(V1) -nondiagnostic. PROBABLY NORMAL Invalid Interpretation Code [facility] Work Phone: [phone] P [place] 45 deg Invalid Interpretation Code [employer] Work Phone: [phone] [place] Interval 168 ms Invalid Interpretation Code [employer] Work Phone: [phone] Pulse (Heart Rate) 59 /min Invalid Interpretation Code [facility] Work Phone: [phone] QRS Duration 90 ms Invalid Interpretation Code [employer] Work Phone: [phone] QT Interval new path ms Invalid Interpretation Code [facility] Work Phone: [phone] QTc [place] 393 ms Invalid Interpretation Code [facility] Work Phone: [phone] T Spr[place] 48 deg Invalid Interpretation Code [facility] Work Phone: [phone]) Lab Report: Vitamin B12on Cobalamins (Vitamin B12) pg/mL High 211-911 [employer] Work Phone: [phone]) Lab Report: Ferritinon 12-26 Ferritin 8 ng/mL Low 26-388 [employer] Work Phone: [phone] Lab Report: CBC W/Diff, Auto matedon 10-18-2014 Absolute Neut 5.2 X10 3/UL Invalid Interpretation Code 2.0-7.7 [employer] Work Phone: [phone] Basophils/100 WBC Auto (Bld) 0.4 % Invalid Interpretation Code 0-1 [employer] Work Phone: Eosinophils/100 leukocytes 1.4 % Invalid Interpretation Code 0-5 [employer] Work Phone: [phone] Immature granulocytes/100 WBC (Bld) 0.100 % Invalid Interpretation Code 0.0-0.9 [employer] Work Phone: Lymphocytes 2.05 X10 3/UL Invalid Interpretation Code 0.83-4.51 [employer] Work Phone: Lymphocytes/100 leukocytes 25.5 % Invalid Interpretation Code 19-41 [facility] Work Phone: Monocytes/100 leukocytes 7.6 % Invalid Interpretation Code 0-10 [employer] Work Phone: Neutrophils/100 WBC Auto (Bld) 65.0 % Invalid Interpretation Code 47-70 [facility] Work Phone: [phone] Lab Report: Comprehensive Me tabolic Profilon 10-18-2014 Albumin/Globulin Ratio 1 {ratio} Invalid Interpretation Code 0.9-2.4 [facility] Work Phone: [phone] Lab Report: Folates, (Folic Acid)on 10-18-2014 Folate 13.00 ng/mL Invalid Interpretation Code 3.1-17.5 [facility] Work Phone: [phone] Lab Report: PTH,INTACTon Parathyrin intact (PTH) 94 pg/mL High 14-72 [facility] Work Phone: [phone]) Lab Report: Vitamin D,25 Hyd roxyon 10-18-2014 Vitamin D 25-OH 10.4 ng/mL Invalid Interpretation Code [facility] Work Phone: [phone]) Office Visit: Establish PCPo n 10-17-2014 Tobacco smoking status NHIS Never Invalid Interpretation Code [facility] Work Phone: [phone]) Lab Report: ALCM - copyon Ethanol 5.0 mg/dL Normal [facility] Work Phone: [phone]) Lab Report: LIPASE - copyon 11-13-2012 LIPASE 171 U/L Normal 70-290 [facility] Work Phone: [phone] Lab Report: UAC - copyon specific gravity, urine 1.025 Normal 1.002-1.030 [facility] Work Phone: [phone] Lab Report: T4on 07-15-2011 Thyroxine (T4) 8.8 ug/dL Normal 4.5-12.1 [facility] Work Phone: [phone] Vital Signs Date Time Vital Sign Value Performing Clinician Facility 10-11-2024 09:20-0400 Body height 193.[address] Gracy Shin DO Work Phone: [facility] 10-11-2024 09:20-0400 Body weight 133.[address] Gracy Shin DO Work Phone: [facility] 10-10-2024 09:51-0400 Body mass index (BMI) [Ratio] 35.9 kg/m2 Dr. Gracy Shin DO Work Phone: [facility] 09-19-2024 07:39-0400 Body mass index (BMI) [Ratio] 26.2 kg/m2 Dr. Gracy Shin DO Work Phone: [facility] 09-19-2024 07:39-0400 Body weight 97.[address] Gracy Shin DO Work Phone: [facility] 09-19-2024 07:39-0400 Diastolic blood pressure 91 mm[Hg] Dr. Gracy Shin DO Work Phone: [facility] 09-19-2024 07:39-0400 Heart rate 87 /min Dr. Gracy Shin DO Work Phone: [facility] 09-19-2024 07:39-0400 Respiratory rate 18 /min Dr. Gracy Shin DO Work Phone: [facility] 09-19-2024 07:39-0400 SaO2% (BldA) [Mass fraction] 96 % Dr. Gracy Shin DO Work Phone: [facility] 09-19-2024 07:39-0400 Systolic blood pressure 129 mm[Hg] Dr. Gracy Shin DO Work Phone: [facility] 08-22-2024 14:32-0400 Body height 193.[address] Gracy Shin DO Work Phone: [facility] 08-22-2024 14:32-0400 Body mass index (BMI) [Ratio] 26.2 kg/m2 Dr. Gracy Shin DO Work Phone: [facility] 08-22-2024 14:32-0400 Body temperature 97.4 [degF] Dr. Gracy Shin DO Work Phone: [facility] 08-22-2024 14:32-0400 Body weight 97.[address] Gracy Shin DO Work Phone: [facility] 08-22-2024 14:32-0400 Diastolic blood pressure 74 mm[Hg] Dr. Gracy Shin DO Work Phone: [facility] 08-22-2024 14:32-0400 Heart rate 79 /min Dr. Gracy Shin DO Work Phone: [facility] 08-22-2024 14:32-0400 Respiratory rate 17 /min Dr. Gracy Shin DO Work Phone: [facility] 08-22-2024 14:32-0400 SaO2% (BldA) [Mass fraction] 96 % Dr. Gracy Shin DO Work Phone: [facility] 08-22-2024 14:32-0400 Systolic blood pressure 111 mm[Hg] Dr. Gracy Shin DO Work Phone: [facility] 07-15-2024 09:50-0400 Body height 193.[address] Gracy Shin DO Work Phone: [facility] 07-15-2024 09:50-0400 Diastolic blood pressure 83 mm[Hg] Dr. Gracy Shin DO Work Phone: [facility] 07-15-2024 09:50-0400 Heart rate 73 /min Dr. Gracy Shin DO Work Phone: [facility] 07-15-2024 09:50-0400 Respiratory rate 18 /min Dr. Gracy Shin DO Work Phone: [facility] 07-15-2024 09:50-0400 SaO2% (BldA) [Mass fraction] 95 % Dr. Gracy Shin DO Work Phone: [facility] 07-15-2024 09:50-0400 Systolic blood pressure 114 mm[Hg] Dr. Gracy Shin DO Work Phone: [facility] 06-23-2024 10:16-0400 Body mass index (BMI) [Ratio] 26 kg/m2 Dr. Gracy Shin DO Work Phone: [facility] 06-23-2024 10:16-0400 Body temperature 97.2 [degF] Dr. Gracy Shin DO Work Phone: [facility] 06-23-2024 10:16-0400 Body weight 97.[address] Gracy Shin DO Work Phone: [facility] 06-23-2024 10:16-0400 Diastolic blood pressure 82 mm[Hg] Dr. Gracy Shin DO Work Phone: [facility] 06-23-2024 10:16-0400 Heart rate 64 /min Dr. Gracy Shin DO Work Phone: [facility] 06-23-2024 10:16-0400 Respiratory rate 18 /min Dr. Gracy Shin DO Work Phone: [facility] 06-23-2024 10:16-0400 SaO2% (BldA) [Mass fraction] 99 % Dr. Gracy Shin DO Work Phone: [facility] 06-23-2024 10:16-0400 Systolic blood pressure 140 mm[Hg] Dr. Gracy Shin DO Work Phone: [facility] 06-15-2024 12:53-0400 Body height 193.[address] Gracy Shin DO Work Phone: [facility] 06-15-2024 12:53-0400 Body mass index (BMI) [Ratio] 26 kg/m2 Dr. Gracy Shin DO Work Phone: [facility] 06-15-2024 12:53-0400 Body temperature 97.4 [degF] Dr. Gracy Shin DO Work Phone: [facility] 06-15-2024 12:53-0400 Body weight 97.[address] Gracy Shin DO Work Phone: [facility] 06-15-2024 12:53-0400 Diastolic blood pressure 82 mm[Hg] Dr. Gracy Shin DO Work Phone: [facility] 06-15-2024 12:53-0400 Heart rate 72 /min Dr. Gracy Shin DO Work Phone: [facility] 06-15-2024 12:53-0400 Respiratory rate 18 /min Dr. Gracy Shin DO Work Phone: [facility] 06-15-2024 12:53-0400 SaO2% (BldA) [Mass fraction] 98 % Dr. Gracy Shin DO Work Phone: [facility] 06-15-2024 12:53-0400 Systolic blood pressure 121 mm[Hg] Dr. Gracy Shin DO Work Phone: [facility] 05-13-2024 12:41-0500 Body weight 96.[address] Gracy Shin DO Work Phone: [facility] 05-13-2024 12:41-0500 Heart rate 95 /min Dr. Gracy Shin DO Work Phone: [facility] 05-13-2024 12:41-0500 SaO2% (BldA) [Mass fraction] 91 % Dr. Gracy Shin DO Work Phone: [facility] 05-03-2024 08:01-0500 Body mass index (BMI) [Ratio] 25.5 kg/m2 Dr. Gracy Shin DO Work Phone: [facility] 05-03-2024 08:01-0500 Body temperature 97.4 [degF] Dr. Gracy Shin DO Work Phone: [facility] 05-03-2024 08:01-0500 Body weight 95.[address] Gracy Shin DO Work Phone: [facility] 05-03-2024 08:01-0500 Diastolic blood pressure 95 mm[Hg] Dr. Gracy Shin DO Work Phone: [facility] 05-03-2024 08:01-0500 Heart rate 81 /min Dr. Gracy Shin DO Work Phone: [facility] 05-03-2024 08:01-0500 Respiratory rate 18 /min Dr. Gracy Shin DO Work Phone: [facility] 05-03-2024 08:01-0500 SaO2% (BldA) [Mass fraction] 96 % Dr. Gracy Shin DO Work Phone: [facility] 05-03-2024 08:01-0500 Systolic blood pressure 135 mm[Hg] Dr. Gracy Shin DO Work Phone: [facility] 04-10-2024 12:00-0500 Body temperature 98.1 [degF] Dr. Gracy Shin DO Work Phone: [facility] 04-10-2024 12:00-0500 Diastolic blood pressure 70 mm[Hg] Dr. Gracy Shin DO Work Phone: [facility] 04-10-2024 12:00-0500 Heart rate 65 /min Dr. Gracy Shin DO Work Phone: [facility] 04-10-2024 12:00-0500 Respiratory rate 16 /min Dr. Gracy Shin DO Work Phone: [facility] 04-10-2024 12:00-0500 SaO2% (BldA) [Mass fraction] 92 % Dr. Gracy Shin DO Work Phone: [facility] 04-10-2024 12:00-0500 Systolic blood pressure 118 mm[Hg] Dr. Gracy Shin DO Work Phone: [facility] 04-09-2024 00:02-0500 Inhaled oxygen flow rate 2 L/min Dr. Gracy Shin DO Work Phone: [facility] 04-06-2024 15:31-0500 Body mass index (BMI) [Ratio] 26.3 kg/m2 Dr. Gracy Shin DO Work Phone: [facility] 04-06-2024 15:31-0500 Body weight [address] Gracy Shin DO Work Phone: [facility] 04-03-2024 11:09-0500 Body temperature 97.5 [degF] Dr. Gracy Shin DO Work Phone: [facility] 04-03-2024 11:09-0500 Diastolic blood pressure 74 mm[Hg] Dr. Gracy Shin DO Work Phone: [facility] 04-03-2024 11:09-0500 Heart rate 77 /min Dr. Gracy Shin DO Work Phone: [facility] 04-03-2024 11:09-0500 Respiratory rate 16 /min Dr. Gracy Shin DO Work Phone: [facility] 04-03-2024 11:09-0500 SaO2% (BldA) [Mass fraction] 98 % Dr. Gracy Shin DO Work Phone: [facility] 04-03-2024 11:09-0500 Systolic blood pressure 125 mm[Hg] Dr. Gracy Shin DO Work Phone: [facility] 04-03-2024 09:35-0500 Body mass index (BMI) [Ratio] 26.4 kg/m2 Dr. Gracy Shin DO Work Phone: [facility] 04-03-2024 09:35-0500 Body weight 98.[address] Gracy Shin DO Work Phone: [facility] 03-04-2024 11:11-0500 Body mass index (BMI) [Ratio] 27 kg/m2 Dr. Gracy Shin DO Work Phone: [facility] 03-04-2024 11:11-0500 Body weight 100.[address] Gracy Shin DO Work Phone: [facility] 03-04-2024 11:11-0500 Diastolic blood pressure 76 mm[Hg] Dr. Gracy Shin DO Work Phone: [facility] 03-04-2024 11:11-0500 Heart rate 76 /min Dr. Gracy Shin DO Work Phone: [facility] 03-04-2024 11:11-0500 SaO2% (BldA) [Mass fraction] 92 % Dr. Gracy Shin DO Work Phone: [facility] 03-04-2024 11:11-0500 Systolic blood pressure 119 mm[Hg] Dr. Gracy Shin DO Work Phone: [facility] 06-25-2023 10:30-0400 Body temperature 97.9 [degF] Reji Danielle MD Work Phone: [facility] 06-25-2023 10:30-0400 Body weight 96.16 kg Reji Danielle MD Work Phone: [facility] 06-25-2023 10:30-0400 Diastolic blood pressure 83 mm[Hg] Reji Danielle MD Work Phone: [facility] 06-25-2023 10:30-0400 Heart rate 72 /min Reji Danielle MD Work Phone: [facility] 06-25-2023 10:30-0400 Respiratory rate 12 /min Reji Danielle MD Work Phone: [facility] 06-25-2023 10:30-0400 SaO2% (BldA) [Mass fraction] 93 % Reji Danielle MD Work Phone: [facility] 06-25-2023 10:30-0400 Systolic blood pressure 143 mm[Hg] Reji Danielle MD Work Phone: [facility] 06-17-2023 09:23-0400 Body height 193.[address] Gracy Shin Work Phone: [facility] 06-17-2023 09:21-0400 Body mass index (BMI) [Ratio] 25 kg/m2 Dr. Gracy Shin Work Phone: [facility] 06-17-2023 09:21-0400 Body weight 93.[address] Gracy Shin Work Phone: [facility] 06-17-2023 09:21-0400 Diastolic blood pressure 80 mm[Hg] Dr. Gracy Shin Work Phone: [facility] 06-17-2023 09:21-0400 Heart rate 92 /min Dr. Gracy Shin Work Phone: [facility] 06-17-2023 09:21-0400 Respiratory rate 18 /min Dr. Gracy Shin Work Phone: [facility] 06-17-2023 09:21-0400 SaO2% (BldA) [Mass fraction] 95 % Dr. Gracy Shin Work Phone: [facility] 06-17-2023 09:21-0400 Systolic blood pressure 121 mm[Hg] Dr. Gracy Shin Work Phone: [facility] 04-24-2023 14:44-0500 Heart rate 61 /min Dr. Gracy Shin Work Phone: [facility] 04-24-2023 14:44-0500 Respiratory rate 16 /min Dr. Gracy Shin Work Phone: [facility] 04-24-2023 14:44-0500 SaO2% (BldA) [Mass fraction] 92 % Dr. Gracy Shin Work Phone: [facility] 04-24-2023 14:28-0500 Diastolic blood pressure 81 mm[Hg] Dr. Gracy Shin Work Phone: [facility] 04-24-2023 14:28-0500 Inhaled oxygen flow rate 3 L/min Dr. Gracy Shin Work Phone: [facility] 04-24-2023 14:28-0500 Systolic blood pressure 129 mm[Hg] Dr. Gracy Shin Work Phone: [facility] 04-24-2023 12:55-0500 Body temperature 97.8 [degF] Dr. Gracy Shin Work Phone: [facility] 04-24-2023 10:48-0500 Body height 193.[address] Gracy Shin Work Phone: [facility] 04-24-2023 10:48-0500 Body mass index (BMI) [Ratio] 27.1 kg/m2 Dr. Gracy Shin Work Phone: [facility] 04-24-2023 10:48-0500 Body weight 101.[address] Gracy Shin Work Phone: [facility] 04-21-2023 15:40-0500 Body temperature 97 [degF] Dr. Gracy Shin Work Phone: [facility] 04-21-2023 15:40-0500 Diastolic blood pressure 64 mm[Hg] Dr. Gracy Shin Work Phone: [facility] 04-21-2023 15:40-0500 Heart rate 88 /min Dr. Gracy Shin Work Phone: [facility] 04-21-2023 15:40-0500 Systolic blood pressure 118 mm[Hg] Dr. Gracy Shin Work Phone: [facility] 04-21-2023 14:42-0500 Body mass index (BMI) [Ratio] 26.2 kg/m2 Dr. Gracy Shin Work Phone: [facility] 04-21-2023 14:42-0500 Body weight 97.[address] Gracy Shin Work Phone: [facility] 04-21-2023 14:42-0500 Respiratory rate 16 /min Dr. Gracy Shin Work Phone: [facility] 04-21-2023 14:42-0500 SaO2% (BldA) [Mass fraction] 94 % Dr. Gracy Shin Work Phone: [facility] 04-14-2023 15:40-0500 Body temperature 96.9 [degF] Dr. Gracy Shin Work Phone: [facility] 04-14-2023 15:40-0500 Diastolic blood pressure 66 mm[Hg] Dr. Gracy Shin Work Phone: [facility] 04-14-2023 15:40-0500 Heart rate 60 /min Dr. Gracy Shin Work Phone: [facility] 04-14-2023 15:40-0500 Respiratory rate 16 /min Dr. Gracy Shin Work Phone: [facility] 04-14-2023 15:40-0500 SaO2% (BldA) [Mass fraction] 95 % Dr. Gracy Shin Work Phone: [facility] 04-14-2023 15:40-0500 Systolic blood pressure 130 mm[Hg] Dr. Gracy Shin Work Phone: [facility] 04-14-2023 14:38-0500 Body height 193.[address] Gracy Shin Work Phone: [facility] 04-14-2023 14:38-0500 Body mass index (BMI) [Ratio] 26.2 kg/m2 Dr. Gracy Sihn Work Phone: [facility] 04-14-2023 14:38-0500 Body weight 97.[address] Gracy Shin Work Phone: [facility] 04-03-2023 15:26-0500 Body temperature 97.7 [degF] Dr. Gracy Shin Work Phone: [facility] 04-03-2023 15:26-0500 Diastolic blood pressure 84 mm[Hg] Dr. Gracy Shin Work Phone: [facility] 04-03-2023 15:26-0500 Heart rate 62 /min Dr. Gracy Shin Work Phone: [facility] 04-03-2023 15:26-0500 Respiratory rate 16 /min Dr. Gracy Shin Work Phone: [facility] 04-03-2023 15:26-0500 SaO2% (BldA) [Mass fraction] 95 % Dr. Gracy Shin Work Phone: [facility] 04-03-2023 15:26-0500 Systolic blood pressure 158 mm[Hg] Dr. Gracy Shin Work Phone: [facility] 04-03-2023 11:46-0500 Inhaled oxygen flow rate 3 L/min Dr. Gracy Shin Work Phone: [facility] 04-03-2023 03:01-0500 Body mass index (BMI) [Ratio] 26.2 kg/m2 Dr. rGacy Shin Work Phone: [facility] 04-03-2023 03:01-0500 Body weight 97.[address] Gracy Shin Work Phone: [facility] 04-01-2023 14:56-0500 Body height 193.[address] Gracy Shin Work Phone: [facility] 03-31-2023 17:57-0500 Body temperature 98.5 [degF] Dr. Gracy Shin Work Phone: [facility] 03-31-2023 17:57-0500 Diastolic blood pressure 80 mm[Hg] Dr. Gracy Shin Work Phone: [facility] 03-31-2023 17:57-0500 Heart rate 67 /min Dr. Gracy Shin Work Phone: [facility] 03-31-2023 17:57-0500 Inhaled oxygen flow rate 3 L/min Dr. Gracy Shin Work Phone: [facility] 03-31-2023 17:57-0500 Respiratory rate 16 /min Dr. Gracy Shin Work Phone: [facility] 03-31-2023 17:57-0500 SaO2% (BldA) [Mass fraction] 94 % Dr. Gracy Shin Work Phone: [facility] 03-31-2023 17:57-0500 Systolic blood pressure 123 mm[Hg] Dr. Gracy Shin Work Phone: [facility] 03-31-2023 14:38-0500 Heart rate 63 /min Dr. Gracy Shin Work Phone: [facility] 03-31-2023 14:38-0500 Inhaled oxygen flow rate 2 L/min Dr. Gracy Shin Work Phone: [facility] 03-31-2023 14:38-0500 Respiratory rate 17 /min Dr. Gracy Shin Work Phone: [facility] 03-31-2023 14:38-0500 SaO2% (BldA) [Mass fraction] 93 % Dr. Gracy Shin Work Phone: [facility] 03-31-2023 13:10-0500 Inhaled oxygen flow rate 2 L/min Dr. Gracy Shin Work Phone: [facility] 03-31-2023 13:10-0500 SaO2% (BldA) [Mass fraction] 93 % Dr. Gracy Shin Work Phone: [facility] 03-31-2023 13:08-0500 Diastolic blood pressure 89 mm[Hg] Dr. Gracy Shin Work Phone: [facility] 03-31-2023 13:08-0500 Heart rate 65 /min Dr. Gracy Shin Work Phone: [facility] 03-31-2023 13:08-0500 Respiratory rate 20 /min Dr. Gracy Shin Work Phone: [facility] 03-31-2023 13:08-0500 Systolic blood pressure 153 mm[Hg] Dr. Gracy Shin Work Phone: [facility] 03-31-2023 12:00-0500 Body height 193.[address] Gracy Shin Work Phone: [facility] 03-31-2023 12:00-0500 Body mass index (BMI) [Ratio] 26.3 kg/m2 Dr. Gracy Shin Work Phone: [facility] 03-31-2023 12:00-0500 Body temperature 98 [degF] Dr. Gracy Shin Work Phone: [facility] 03-31-2023 12:00-0500 Body weight [address] Gracy Shin Work Phone: [facility] 03-26-2023 08:37-0500 Body mass index (BMI) [Ratio] 26 kg/m2 Dr. Gracy Shin Work Phone: [facility] 03-26-2023 08:37-0500 Body temperature 97.5 [degF] Dr. Gracy Shin Work Phone: [facility] 03-26-2023 08:37-0500 Body weight 97.[address] Gracy Shin Work Phone: [facility] 03-26-2023 08:37-0500 Diastolic blood pressure 80 mm[Hg] Dr. Gracy Shin Work Phone: [facility] 03-26-2023 08:37-0500 Heart rate 88 /min Dr. Gracy Shin Work Phone: [facility] 03-26-2023 08:37-0500 Respiratory rate 18 /min Dr. Gracy Shin Work Phone: [facility] 03-26-2023 08:37-0500 SaO2% (BldA) [Mass fraction] 93 % Dr. Gracy Shin Work Phone: [facility] 03-26-2023 08:37-0500 Systolic blood pressure 126 mm[Hg] Dr. Gracy Shin Work Phone: [facility] 11-20-2022 13:30-0400 Body temperature 97.6 [degF] Dr. Gracy Shin Work Phone: [facility] 11-20-2022 13:30-0400 Diastolic blood pressure 78 mm[Hg] Dr. Gracy Shin Work Phone: [facility] 11-20-2022 13:30-0400 Heart rate 59 /min Dr. Gracy Shin Work Phone: [facility] 11-20-2022 13:30-0400 Respiratory rate 16 /min Dr. Gracy Shin Work Phone: [facility] 11-20-2022 13:30-0400 SaO2% (BldA) [Mass fraction] 99 % Dr. Gracy Shin Work Phone: [facility] 11-20-2022 13:30-0400 Systolic blood pressure 140 mm[Hg] Dr. Gracy Shin Work Phone: [facility] 11-20-2022 12:03-0400 Body height 193.[address] Gracy Shin Work Phone: [facility] 11-20-2022 12:03-0400 Body mass index (BMI) [Ratio] 24.3 kg/m2 Dr. Gracy Shin Work Phone: [facility] 11-20-2022 12:03-0400 Body weight 90.[address] Gracy Shin Work Phone: [facility] 08-07-2022 10:38-0400 Body height 193.[address] Gracy Shin Work Phone: [facility] 08-07-2022 10:38-0400 Body temperature 97 [degF] Dr. Gracy Shin Work Phone: [facility] 08-07-2022 10:38-0400 Diastolic blood pressure 90 mm[Hg] Dr. Gracy Shin Work Phone: [facility] 08-07-2022 10:38-0400 Heart rate 66 /min Dr. Gracy Shin Work Phone: [facility] 08-07-2022 10:38-0400 Respiratory rate 16 /min Dr. Gracy Shin Work Phone: [facility] 08-07-2022 10:38-0400 SaO2% (BldA) [Mass fraction] 99 % Dr. Gracy Shin Work Phone: [facility] 08-07-2022 10:38-0400 Systolic blood pressure 125 mm[Hg] Dr. Gracy Shin Work Phone: [facility] 08-06-2022 15:18-0400 Diastolic blood pressure 96 mm[Hg] Dr. Gracy Shin Work Phone: [facility] 08-06-2022 15:18-0400 Heart rate 65 /min Dr. Gracy Shin Work Phone: [facility] 08-06-2022 15:18-0400 Respiratory rate 18 /min Dr. Gracy Shin Work Phone: [facility] 08-06-2022 15:18-0400 SaO2% (BldA) [Mass fraction] 95 % Dr. Gracy Shin Work Phone: [facility] 08-06-2022 15:18-0400 Systolic blood pressure 154 mm[Hg] Dr. Gracy Shin Work Phone: [facility] 08-06-2022 15:00-0400 Body temperature 97.8 [degF] Dr. Gracy Shin Work Phone: [facility] 05-05-2022 08:05-0500 Body height 189.[address] Gracy Shin Work Phone: [facility] 05-05-2022 08:05-0500 Body mass index (BMI) [Ratio] 25.7 kg/m2 Dr. Gracy Shin Work Phone: [facility] 05-05-2022 08:05-0500 Body temperature 97.8 [degF] Dr. Gracy Shin Work Phone: [facility] 05-05-2022 08:05-0500 Body weight 92.[address] Gracy Shin Work Phone: [facility] 05-05-2022 08:05-0500 Diastolic blood pressure 82 mm[Hg] Dr. Gracy Shin Work Phone: [facility] 05-05-2022 08:05-0500 Heart rate 81 /min Dr. Gracy Shin Work Phone: [facility] 05-05-2022 08:05-0500 Respiratory rate 16 /min Dr. Gracy Shin Work Phone: [facility] 05-05-2022 08:05-0500 SaO2% (BldA) [Mass fraction] 97 % Dr. Gracy Shin Work Phone: [facility] 05-05-2022 08:05-0500 Systolic blood pressure 132 mm[Hg] Dr. Gracy Shin Work Phone: [facility] 02-19-2022 07:55-0500 Body height 189.[address] Gracy Shin Work Phone: [facility] Work Phone: 02-19-2022 07:55-0500 Body mass index (BMI) [Ratio] 25.7 kg/m2 Dr. Gracy Shin Work Phone: [facility] 02-19-2022 07:55-0500 Body weight 92.[address] Gracy Shin Work Phone: [facility] 02-19-2022 07:55-0500 Diastolic blood pressure 81 mm[Hg] Dr. Gracy Shin Work Phone: [facility] 02-19-2022 07:55-0500 Heart rate 86 /min Dr. Gracy Shin Work Phone: [facility] 02-19-2022 07:55-0500 Respiratory rate 18 /min Dr. Gracy Shin Work Phone: [facility] 02-19-2022 07:55-0500 SaO2% (BldA) [Mass fraction] 93 % Dr. Gracy Shin Work Phone: [facility] 02-19-2022 07:55-0500 Systolic blood pressure 134 mm[Hg] Dr. Gracy Shin Work Phone: [facility] 10-09-2021 13:49-0400 Body temperature 98 [degF] Dr. Gracy Shin Work Phone: [facility] Work Phone: 10-09-2021 13:49-0400 Diastolic blood pressure 84 mm[Hg] Dr. Gracy Shin Work Phone: [facility] Work Phone: 10-09-2021 13:49-0400 Heart rate 86 /min Dr. Gracy Shin Work Phone: [facility] Work Phone: 10-09-2021 13:49-0400 Respiratory rate 14 /min Dr. Gracy Shin Work Phone: [facility] Work Phone: 10-09-2021 13:49-0400 SaO2% (BldA) [Mass fraction] 95 % Dr. Gracy Shin Work Phone: [facility] Work Phone: 10-09-2021 13:49-0400 Systolic blood pressure 130 mm[Hg] Dr. Gracy Shin Work Phone: [facility] Work Phone: 09-26-2021 09:22-0400 Body temperature 97.8 [degF] Dr. Gracy Shin Work Phone: [facility] Work Phone: 09-26-2021 09:22-0400 Diastolic blood pressure 86 mm[Hg] Dr. Gracy Shin Work Phone: [facility] Work Phone: 09-26-2021 09:22-0400 Heart rate 90 /min Dr. Gracy Shin Work Phone: [facility] Work Phone: 09-26-2021 09:22-0400 Respiratory rate 16 /min Dr. Gracy Shin Work Phone: [facility] Work Phone: 09-26-2021 09:22-0400 SaO2% (BldA) [Mass fraction] 95 % Dr. Gracy Shin Work Phone: [facility] Work Phone: 09-26-2021 09:22-0400 Systolic blood pressure 144 mm[Hg] Dr. Gracy Shin Work Phone: [facility] Work Phone: 09-03-2021 10:44-0400 Body height 189.[address] Gracy Shin Work Phone: [facility] Work Phone: 09-03-2021 10:44-0400 Body mass index (BMI) [Ratio] 27.8 kg/m2 Dr. Gracy Shin Work Phone: [facility] Work Phone: 09-03-2021 10:44-0400 Body temperature 98.4 [degF] Dr. Gracy Shin Work Phone: [facility] Work Phone: 09-03-2021 10:44-0400 Body weight 99.[address] Gracy Shin Work Phone: [facility] Work Phone: 09-03-2021 10:44-0400 Diastolic blood pressure 96 mm[Hg] Dr. Gracy Shin Work Phone: [facility] Work Phone: 09-03-2021 10:44-0400 Heart rate 89 /min Dr. Gracy Shin Work Phone: [facility] Work Phone: 09-03-2021 10:44-0400 Respiratory rate 16 /min Dr. Gracy Shin Work Phone: [facility] Work Phone: 09-03-2021 10:44-0400 SaO2% (BldA) [Mass fraction] 96 % Dr. Gracy Shin Work Phone: [facility] Work Phone: 09-03-2021 10:44-0400 Systolic blood pressure 146 mm[Hg] Dr. Gracy Shin Work Phone: [facility] Work Phone: 08-08-2021 08:24-0400 Body mass index (BMI) [Ratio] 27.1 kg/m2 Dr. Gracy Shin Work Phone: [facility] Work Phone: 08-08-2021 08:24-0400 Body weight 101.[address] Gracy Shin Work Phone: [facility] Work Phone: 08-08-2021 08:24-0400 Diastolic blood pressure 79 mm[Hg] Dr. Gracy Shin Work Phone: [facility] Work Phone: 08-08-2021 08:24-0400 Heart rate 85 /min Dr. Gracy Shin Work Phone: [facility] Work Phone: 08-08-2021 08:24-0400 Respiratory rate 18 /min Dr. Gracy Shin Work Phone: [facility] Work Phone: 08-08-2021 08:24-0400 SaO2% (BldA) [Mass fraction] 94 % Dr. Gracy Shin Work Phone: [facility] Work Phone: 08-08-2021 08:24-0400 Systolic blood pressure 124 mm[Hg] Dr. Gracy Shin Work Phone: [facility] Work Phone: 08-06-2021 08:42-0400 Diastolic blood pressure 84 mm[Hg] Dr. Gracy Shin Work Phone: [facility] Work Phone: 08-06-2021 08:42-0400 Systolic blood pressure 146 mm[Hg] Dr. Gracy Shin Work Phone: [facility] Work Phone: 08-06-2021 08:15-0400 Body mass index (BMI) [Ratio] 27.1 kg/m2 Dr. Gracy Shin Work Phone: [facility] Work Phone: 08-06-2021 08:15-0400 Body weight 101.[address] Gracy Shin Work Phone: [facility] Work Phone: 08-06-2021 08:15-0400 Heart rate 80 /min Dr. Gracy Shin Work Phone: [facility] Work Phone: 08-06-2021 08:15-0400 Respiratory rate 17 /min Dr. Gracy Shin Work Phone: [facility] Work Phone: 08-06-2021 08:15-0400 SaO2% (BldA) [Mass fraction] 94 % Dr. Gracy Shin Work Phone: [facility] Work Phone: 02-04-2016 08:39-0500 BMI (Body Mass Index) 27.87 kg/m2 Bruna Antonio RN [facility] Work Phone: 02-04-2016 08:39-0500 BP Diastolic 68 mm[Hg] Bruna Antonio RN [facility] Work Phone: 02-04-2016 08:39-0500 BP Systolic 118 mm[Hg] Bruna Antonio RN [facility] Work Phone: 02-04-2016 08:39-0500 BSA (Body Surface Area) 2.35 m2 Bruna Antonio RN [facility] Work Phone: 02-04-2016 08:39-0500 Pulse (Heart Rate) 56 /min Bruna Antonio RN [facility] Work Phone: 02-04-2016 08:39-0500 Respiratory Rate 16 /min Bruna Antonio RN [facility] Work Phone: 02-04-2016 08:39-0500 Weight 103.87 kg Bruna Antonio RN [facility] Work Phone: 10-17-2014 13:07-0400 Body Temperature 98.1 [degF] Bruna Antonio RN [facility] Work Phone: 12-24-2011 14:38-0400 Body Temperature 97.39 [degF] Bruna Antonio RN [facility] Work Phone: 12-24-2011 14:38-0400 Height 193.04 cm Bruna Antonio RN [facility] Work Phone: 12-24-2011 14:38-0400 Weight 130.55 kg Bruna Antonio RN [facility] Work Phone: 07-18-2010 10:31-0400 Height 193.04 cm Bruna Antonio RN [facility] Work Phone: Encounters Encounter Date Encounter Type Care Provider Facility Start: 01-27-2025 ambulatory [facility] Facility: [facility] Start: 01-11-2025 End: 01-11-2025 ambulatory [facility] Facility:[facility] Start: 12-08-2024 End: 12-08-[address] Gracy Shin DO Work Phone: -Laboratory Start: 12-08-2024 End: 12-08-[address] Al Ramirez MD -Laboratory Work Phone: Start: 12-08-2024 End: 12-08-2024 [facility] Start: 11-23-2024 [facility] Facil ity:[facility] Start: 11-17-2024 End: 11-17-[address] Gracy Shin DO Work Phone: -Laboratory Start: 11-17-2024 End: 11-17-[address] lA Ramirez MD -Laboratory Work Phone: Start: 11-16-2024 End: 11-17-[address] Gracy Shin DO Work Phone: -Laboratory Start: 11-16-2024 End: 11-16-[address] Vasyl Aguilar MD -Laboratory Work Phone: Start: 11-16-2024 End: 11-16-2024 ambulatory Vasyl Aguilar Facility:[facility] Start: 11-08-2024 Non-patient / Non-visit Nguyen miranda ORE FEEDER-C -[facility] Work Phone: Start: 11-08-2024 ambulatory Nguyen Montemayor ORE FEEDER Facili ty:[facility] Start: 11-07-2024 Non-patient / Non-visit Dr. Curry ZAMORA -[facility] Start: 11-07-2024 End: 11-07-[address] Gracy Shin DO Work Phone: -Cardiovascular Services Start: 11-07-2024 End: 11-07-2024 Patient encounter procedure Nguyen Montemayor ORE FEEDER-C -Cardiovascular Services Work Phone: Start: 11-07-2024 End: 11-07-2024 ambulatory Nguyen Montemayor NP Facility:[facility] Start: 10-18-2024 End: 10-18-2024 Patient encounter procedure Radha Guzman [facility] Work Phone: Start: 10-18-2024 End: 10-18-[address] Gracy Shin DO Work Phone: -[facility] Start: 10-11-2024 ambulatory Gracy Shin Facility: [facility] Start: 10-11-2024 Non-patient / Non-visit Dr. Sa suhail Newman MD -[facility] Start: 10-11-2024 End: 10-11-2024 Admission to same day surgery center Dr. Holland Newman MD -[employer]/Special Procedures Work Phone: Start: 10-11-2024 End: 10-11-[address] 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 Start: 09-26-2024 End: 09-26-[address] Gracy Shin DO Work Phone: -Laboratory Start: 09-26-2024 End: 09-26-2024 Patient encounter procedure Nguyen Montemayor ORE FEEDER-C -Laboratory Work Phone: Start: 09-26-2024 End: 09-26-2024 ambulatory Gracy Shin Facility:[facility] Start: 09-19-2024 End: 09-19-[address] Gracy Shin DO Work Phone: -Laboratory Start: 09-19-2024 End: 09-19-2024 Patient encounter procedure Nguyen Montemayor ORE FEEDER-C -Laboratory Work Phone: Start: 09-19-2024 End: 09-19-2024 Patient encounter procedure Nguyen Montemayor ORE FEEDER-C -[facility] Work Phone: Start: 09-19-2024 End: 09-19-[address] Gracy Shin DO Work Phone: -[facility] Start: 09-19-2024 End: 09-19-2024 ambulatory [facility] Facility:[facility] Start: 09-15-2024 End: 09-15-[address] Gracy Shin DO Work Phone: -[facility] Start: 09-15-2024 End: 09-15-[address] Carlin Wilde MD -[facility] Work Phone: Start: 09-02-2024 End: 09-02-[address] Gracy Shin DO Work Phone: [facility] Work Phone: Start: 09-02-2024 End: 09-02-[address] Tani Alford MD -[facility] Work Phone: Start: 09-02-2024 End: 09-02-2024 ambulatory [facility] Facility:[facility] Start: 08-23-2024 End: 08-23-[address] Gracy Shin DO Work Phone: [facility] Work Phone: Start: 08-23-2024 End: 08-23-[address] Pipe Romero MD -Laboratory Specimen Work Phone: Start: 08-22-2024 End: 08-22-[address] Birdie Hernandes MD -[facility] Work Phone: Start: 08-22-2024 End: 08-23-[address] Gracy Shin DO Work Phone: [facility] Work Phone: Start: 08-12-2024 End: 08-12-[address] Gracy Shin DO Work Phone: [facility] Work Phone: Start: 08-12-2024 End: 08-12-[address] Gracy Shin DO -Laboratory Work Phone: Start: 08-12-2024 End: 08-12-2024 ambulatory Gracy [facility] Facility:[facility] Start: 07-15-2024 End: 07-15-[address] Al Ramirez MD -Laboratory Work Phone: Start: 07-15-2024 End: 07-15-[address] Vasyl King MD -[facility] Work Phone: Start: 07-15-2024 End: 07-15-2024 ambulatory [facility] Facility:[facility] Start: 07-15-2024 End: 07-15-2024 ambulatory Al James Facility:[facility] Start: 06-24-2024 End: 06-24-[address] [facility] Facility:[facility] Start: 06-23-2024 End: 06-23-2024 Patient encounter procedure Tianna Zazueta PA-C -[facility] Work Phone: Start: 06-23-2024 End: 06-23-2024 ambulatory Gracy FergusonKip Facility:[facility] Start: 06-16-2024 End: 06-16-2024 ambulatory [facility] Facility:[facility] Start: 06-16-2024 End: 06-16-[address] Carlin Wilde MD -[facility] Work Phone: Start: 06-15-2024 End: 06-15-[address] Birdie Hernandes MD -[facility] Work Phone: Start: 06-15-2024 End: 06-15-[address] Gracy Shin DO Work Phone: [facility] Work Phone: Start: 06-15-2024 End: 06-15-2024 ambulatory [facility] Facility:[facility] Start: 05-17-2024 End: 05-17-[address] Jonel Hernandez DO -Pulmonary Services/Neurology Work Phone: Start: 05-17-2024 ambulatory [facility] Facility: [facility] Start: 05-16-2024 End: 05-17-2024 ambulatory [facility] Facility:[facility] Start: 05-16-2024 Non-patient / Non-visit Dr. Jonel galvez DO -[facility] Start: 05-13-2024 End: 05-13-[address] Jonel Hernandez DO -Pulmonary Services/Neurology Work Phone: Start: 05-13-2024 End: 05-13-2024 ambulatory [facility] Facility:[facility] Start: 05-03-2024 End: 05-03-[address] Jonel Hernandez DO -[facility] Work Phone: Start: 05-03-2024 End: 05-03-2024 ambulatory [facility] Facility:[facility] Start: 04-25-2024 End: 04-25-[address] Al Ramirez MD -Laboratory Work Phone: Start: 04-25-2024 End: 04-25-2024 ambulatory Al Ramirez Facility:[facility] Start: 04-11-2024 Encounter for other preprocedural examination Loki Raines [facility] Start: 04-10-2024 Non-patient / Non-visit Dr. Yeni Raines MD -[facility] Work Phone: Start: 04-08-2024 ambulatory [facility] Facility: [facility] Start: 04-08-2024 End: 04-10-2024 Evaluation and management of inpatient Dr. Binu Brannon MD -Medical Surgical 3 Work Phone: Start: 04-03-2024 End: 04-03-2024 Emergency department patient visit Dr. Alex Jones DO -Emergency Department Work Phone: Start: 03-25-2024 End: 03-25-2024 ambulatory [facility] Facility:[facility] Start: 03-25-2024 End: 03-25-2024 Non-patient / Non-visit Dr. Carlin Wilde MD -[facility] Work Phone: Start: 03-17-2024 End: 03-17-2024 ambulatory [facility] Facility:[facility] Start: 03-17-2024 End: 03-17-[address] Carlin Wilde MD -[facility] Work Phone: Start: 03-04-2024 End: 03-04-[address] Tani Alford MD -[facility] Work Phone: Start: 03-04-2024 End: 03-04-2024 ambulatory [facility] Facility:[facility] Start: 07-03-2023 End: 07-03-[address] Gracy Shin Work Phone: [facility] Work Phone: Start: 07-03-2023 End: 07-03-[address] Gracy Shin Work Phone: [facility]-Laboratory, Specimen Work Phone: Start: 07-02-2023 End: 07-02-2023 ambulatory Reji Danielle MD Work Phone: Hematology/Oncology Comment on above: Other abnormality of red blood cells (Primary Dx) Start: 07-02-2023 End: 07-02-2023 Telemedicine consultation with patient Reji Danielle MD Work Phone: [facility] Start: 06-25-2023 End: 06-25-2023 ambulatory Reji Danielle MD Work Phone: Hematology/Oncology Comment on above: Other pancytopenia ( HCC) (Primary Dx); Other abnormality of red blood cells; Anemia, unspecified type Start: 06-25-2023 End: 06-25-2023 Patient encounter procedure Reji Danielle MD Work Phone: [facility] Start: 06-18-2023 End: 06-18-[address] Gracy Shin Work Phone: [facility] Work Phone: Start: 06-17-2023 End: 06-17-[address] Gracy Shin Work Phone: [facility] Work Phone: Start: 06-17-2023 End: 06-17-[address] Gracy Shin Work Phone: [facility] Work Phone: Start: 06-12-2023 Non-patient / Non-visit Dr. Tl Shin Work Phone: [facility] Work Phone: Start: 06-10-2023 Non-patient / Non-visit Dr. Tl Shin Work Phone: [facility] Start: 06-10-2023 End: 06-10-[address] Gracy Shin Work Phone: [facility] Work Phone: Start: 06-10-2023 End: 06-10-[address] [facility] Work [facility] Start: 06-05-2023 End: 06-05-[address] Gracy Shin Work Phone: [facility] Work Phone: Start: 06-05-2023 End: 06-05-[address] Gracy Shin [facility] Phone[facility] Work Phone: Start: 05-22-2023 End: 05-22-[address] Gracy Shin Work Phone: [facility] Work Phone: Start: 05-22-2023 End: 05-22-[address] Gracy Shin Work Phone: [facility]-Laboratory Work Phone: Start: 05-06-2023 End: 05-06-[address] Gracy Shin Work Phone: [facility] Work Phone: Start: 05-06-2023 End: 05-06-[address] Gracy Shin [facility] Start: 04-24-2023 End: 04-24-2023 Emergency department patient visit Dr. Gracy Shin Work Phone: [facility]-Emergency Department Work Phone: Start: 04-21-2023 End: 04-21-[address] Gr[facility] Work Phone: Start: 04-14-2023 End: 04-14-[address] Gracy Shin Work Phone: [facility] Work Phone: Start: 04-14-2023 End: 04-14-[address] Gr[facility] Work Phone: Start: 04-07-2023 End: 04-07-[address] Gracy Shin Work Phone: [facility] Work Phone: Start: 04-07-2023 End: 04-07-[address] Gracy Shin Work Phone: [facility]-Laboratory Work Phone: Start: 04-03-2023 Non-patient / Non-visit Dr. Tl Shin Work Phone: [facility] Work Phone: Start: 04-02-2023 Non-patient / Non-visit Dr. Tl Shin Work Phone: [facility] Start: 04-02-2023 Non-patient / Non-visit Dr. Tl Shin Work Phone: [facility] Work Phone: Start: 04-01-2023 Non-patient / Non-visit Dr. Tl Shin Work Phone: [facility] Work Phone: Start: 03-31-2023 End: 04-03-2023 Evaluation and management of inpatient Dr. Gracy Shin Work Phone: [facility]-Progressive Care Unit Work Phone: Start: 03-31-2023 Non-patient / Non-visit Dr. Tl Shin Work Phone: [facility] Work Phone: Start: 03-31-2023 Emergency department patient visit Dr. Gracy Shin Work Phone: [facility]-Emergency Department Work Phone: Start: 03-26-2023 End: 03-26-[address] Gracy Shin Work Phone: [facility] Work Phone: Start: 03-26-2023 End: 03-26-[address] Gracy Shin Work Phone: [facility]-Laboratory, Specimen Work Phone: Start: 03-26-2023 End: 03-26-[address] Gracy Shin Work Phone: [facility] Work Phone: Start: 03-25-2023 End: 03-25-[address] Gracy Shin Work Phone: [facility] Work Phone: Start: 03-25-2023 End: 03-25-[address] Gracy Shin Work Phone: [facility]-Laboratory Work Phone: Start: 03-18-2023 End: 03-18-[address] Gracy Shin Work Phone: [facility] Work Phone: Start: 03-18-2023 End: 03-18-[address] Gracy Shin Work Phone: [facility] Work Phone: Start: 11-20-2022 End: 11-20-2022 Admission to same day surgery center Dr. Gracy Shin Work Phone: [facility]-Space Officer Work Phone: Start: 11-20-2022 End: 11-20-[address] Gracy Shin Work Phone: [facility] Work Phone: Start: 11-17-2022 End: 11-17-[address] Gracy Shin Work Phone: [facility] Work Phone: Start: 11-17-2022 End: 11-17-[address] Gr[facility]: Start: 08-15-2022 End: 08-15-[address] Gracy Shin Work Phone: [facility] Work Phone: Start: 08-07-2022 End: 08-07-2022 Emergency department patient visit Dr. Gracy Shin Work Phone: [facility]-Emergency Department Work Phone: Start: 08-06-2022 End: 08-06-2022 Emergency department patient visit Dr. Gracy Shin Work Phone: [facility]-Emergency Department Work Phone: Start: 05-23-2022 End: 05-23-[address] Gracy Shin Work Phone: [facility] Work Phone: Start: 05-23-2022 End: 05-23-[address] Gracy Shin Work Phone: [facility]-Laboratory Start: 05-07-2022 End: 05-07-[address] Gracy Shin Work Phone: [facility] Start: 05-05-2022 End: 05-05-[address] Gracy Shin Work Phone: [facility] Start: 02-19-2022 End: 02-19-[address] Gracy Shin Work Phone: [facility] Work Phone: Start: 02-19-2022 End: 02-19-[address] Gracy Shin Work Phone: [facility] Start: 01-29-2022 End: 01-29-[address] Gracy Shin Work Phone: [facility] Start: 11-20-2021 End: 11-20-[address] Gracy Shin Work Phone: [facility] Work Phone: Start: 11-20-2021 End: 11-20-[address] Gracy Shin Work Phone: [facility]-Laboratory Start: 10-28-2021 End: 10-28-[address] Gracy Shin Work Phone: [facility] Start: 10-09-2021 End: 10-09-[address] Gr[facility] Start: 10-09-2021 End: 10-09-[address] Gracy Shin Work Phone: [facility] Start: 10-09-2021 End: 10-09-[address] [facility] Start: 09-26-2021 End: 09-26-[address] Gracy Shin Work Phone: [facility] Start: 09-03-2021 End: 09-03-[address] Gracy Shin Work Phone: [facility] Start: 08-08-2021 End: 08-08-[address] Gracy Shin Work Phone: [facility] Start: 08-06-2021 End: 08-06-[address] Gracy Shin Work Phone: [facility] Start: 07-24-2021 End: 07-24-[address] Gracy Shin Work Phone: [facility] Start: 05-13-2018 End: 05-13-2018 Patient encounter procedure MARITZA SPENCERNK [facility] Start: 03-11-2018 End: 03-11-2018 Patient encounter procedure HUSEYIN Bailey [facility] Start: 06-09-2017 End: 06-09-2017 Ambulatory GRACY SHIN [facility] Start: 06-09-2017 Ambulatory JULIETH Rocha [facility] Start: 06-05-2017 [facility] Start: 06-04-2017 Ambulatory MAHMOUD HOUMSSE [facility] Start: 05-30-2017 Ambulatory MARY [facility] Start: 05-25-2017 [facility] Start: 05-20-2017 [facility] Start: 05-18-2017 [facility] Start: 05-17-2017 [facility] Start: 05-07-2017 End: 05-15-2017 Evaluation and management of inpatient JULIETH Rocha [facility] Start: 04-20-2017 Ambulatory BHAVIK HEAD [facility] Start: 04-20-2017 Ambulatory BHAVIK HEAD [facility] Start: 04-10-2017 Ambulatory JULIETH Rocha [facility] Start: 08-17-2016 End: 08-20-2016 Evaluation and management of inpatient MARÍA LEBLANC Facility:[facility] Procedures Date Procedure Procedure Detail Performing Clinician Start: 12-08-2024 Serum inorganic phosphate measurement Dr. rGacy Shin DO Work Phone: Start: 09-19-2024 Urnls dip stick/tablet reagent auto microscopy Dr. Gracy Shin DO Work Phone: Start: 09-02-20[address] of liver [address] Ayana Shin DO Work Phone: Start: 08-23-[address] Gracy Shin DO Work Phone: Start: 08-23-2024 End: 08-23-2024 Microbial culture, routine Dr. Gracy robledo DO Work Phone: Start: 08-12-2024 [id number] measurement Dr. Gracy Shin DO Work Phone: Comment on above: [email or web address] Electrochemiluminescen ce Immunoassay(ECLIA)Values obtained with different assay methods or kits cannotbe used interchangeably. Results cannot be interpreted asabsolute evidence of the presence or absence of malignantdisease.This test is not interpretable in females.Performed at: [address] [id number] Director: Kaiden Warner PhD, Phone: [phone] Start: 07-15-2024 Assay of prostate specific antigen total Dr. Gracy Shin DO Work Phone: Comment on above: This test was performed using the [employer] tPSA method. Measured values of a patient sample can vary depending on the testing procedure used. PSA values determined on patient samples by different testing procedures cannot be used interchangeably. If there is a change in PSA assays while monitoring therapy, sequential testing should be performed to confirm baseline values. Start: 07-15-2024 Serum inorganic phosphate measurement Dr. Gracy Shni DO Work Phone: Start: 06-15-[address] Gracy elias DO Work Phone: Start: 06-15-[address] Gracy Shin DO Work Phone: Start: 06-15-2024 End: 06-15-2024 Microbial culture, routine Dr. Gracy robledo DO Work Phone: Start: 04-25-2024 Assay of phosphorus inorganic Dr. Gracy smart DO Work Phone: Start: 04-25-2024 Measurement of renal function Dr. Gracy smart DO Work Phone: Comment on above: GFR Calc Start: 04-08-2024 Transurethral fulguration of bladder Dr. Gracy Shin DO Work Phone: Start: 04-06-[address] Gracy elias DO Work Phone: Start: 07-03-[address] Gracy elias Work Phone: Start: 07-03-2023 Investigation of transfusion reaction Dr. Gracy Shin Work Phone: Start: 07-03-2023 Microbial culture, routine Dr. Gracy robledo Work Phone: Start: 06-17-2023 CT of abdomen and pelvis with oral contrast Dr. Gracy Shin Work Phone: Start: 06-17-2023 Plain chest X-ray Dr. Gracy Shin Work Phone: Start: 06-05-[address] Gracy Shin Work Phone: Start: 04-24-2023 Plain chest X-ray Dr. Gracy Shin Work Phone: Start: 04-01-2023 Investigation of transfusion reaction Dr. Gracy Shin Work Phone: Start: 04-01-[address] Gracy Shin Work Phone: Start: 04-01-[address] Gracy smart Work Phone: Start: 04-01-[address] Gracy robledo Work Phone: Start: 03-31-2023 Legionella pneumophila antigen assay Dr. Gracy Shin Work Phone: Start: 03-31-2023 Measurement of occult blood in stool specimen using immunoassay Dr. Gracy Shin Work Phone: Start: 03-31-2023 SARS-CoV-2, Influenza & RSV (PCR) Dr. Tl Shin Work Phone: Start: 03-31-2023 Streptococcus pneumoniae Antigen (M Dr. Gracy Shin Work Phone: Start: 03-31-2023 Plain chest X-ray Dr. Gracy Shin Work Phone: Start: 03-26-[address] Gracy elias Work Phone: Start: 03-26-2023 Investigation of transfusion reaction Dr. Gracy Shin Work Phone: Start: 03-26-2023 Microbial culture, routine Dr. Gracy robledo Work Phone: Start: 11-20-[address] Gracy Shin Work Phone: Start: 08-06-2022 Plain x-ray of hand Dr. Gracy Shin Work Phone: Start: 09-26-2021 Plain chest X-ray Dr. Gracy Shin Work Phone: Start: 03-05-2018 Lipid 1996 panel - Serum or Plasma Reji Danielle MD Work Phone: Start: 12-23-2016 End: 12-23-2016 *Hepatic Function Panel Ambrocio Whitaker MD Start: 12-23-2016 End: 12-23-2016 Lipid 1996 panel - Serum or Plasma Ambrocio Whitaker MD Start: 12-08-2016 End: 12-22-2016 Echocardiography Ambrocio Whitaker MD Start: 08-19-2016 EXC STOMACH KEIRA/ART OPEN PROVIDER UNKNOW N Start: 02-04-2016 End: 12-08-2016 Echocardiography Ambrocio Whitaker [...] [Mass/volume] in Serum or Plasma Gracy Ramirez [employer] Work Phone: Start: 12-27-2014 End: 12-27-2014 Cobalamin (Vitamin B12) [Mass/volume] in Serum or Plasma Gracy Ramirez [employer] Work Phone: Start: 12-26-2014 End: 12-26-2014 Thyrotropin [Units/volume] in Serum or Plasma Gracy Shin DO Work Phone: Start: 12-14-2014 End: 12-27-2014 Echocardiography [...] D3 [Mass/volume] in Serum or Plasma Gracy Shin DO Work Phone: Start: 10-17-2014 End: 10-18-2014 Cobalamin (Vitamin B12) [Mass/volume] in Serum or Plasma Gracy Shin DO Work Phone: Start: 10-17-2014 End: 10-18-2014 Ferritin [Mass/volume] in Serum or Plasma Gracy Shin DO Work Phone: Start: 10-17-2014 End: 10-18-2014 Folate [Mass/volume] in Serum or Plasma Gracy Shin DO Work Phone: Start: 10-17-2014 End: 10-18-2014 Lipid 1996 panel - Serum or Plasma Gracy Shin DO Work Phone: Start: 10-17-2014 End: 10-18-2014 Prostate specific Ag [Mass/volume] in Serum or Plasma Gracy Shin DO Work Phone: Start: 10-17-2014 End: 10-18-2014 Thyrotropin [Units/volume] in Serum or Plasma Gracy Shin DO Work Phone: Start: 01-09-2014 End: 01-09-2014 [...] 12-22-2011 End: 12-22-2011 Ceftriaxone (Rocephin) per 250mg Antwan Espinosa MD Start: 12-22-2011 End: 12-01-2012 Thyrotropin [...] Assay of thyroid stimulating hormone tsh Olman Head MD Start: 09-30-2010 End: 10-07-2010 Blood count manual cell count each Olman Head MD Start: 09-30-2010 End: 10-07-2010 Comprehensive metabolic panel Olman richardson MD Start: 09-30-2010 End: 09-30-2010 Follow Up as scheduled Pete Espinosa MD Start: 09-30-2010 End: 10-07-2010 Lipid panel Olman Head MD Start: 07-18-2010 End: 10-07-2010 Blood count manual cell count maggie Head MD Plan of Treatment Date Care Activity Detail Author Start: 08-06-2032 Urine microalbumin profile DTaP,Tdap,Td Vaccine (3 - Td or Tdap) [facility] Start: 10-11-2024 Replacement of electronic heart device, pulse generator [facility] Start: 09-19-2024 End: 09-19-2024 Evaluation of diagnostic study results [facility] Start: 08-23-2024 Microbial culture, routine Wound Culture [facility] Start: 08-23-[address] [facility] Start: 06-15-2024 Anaerobic microbial culture Anaerobic Culture [facility] Start: 06-15-[address] [facility] Work Phone: Start: 06-15-2024 Source specific culture [facility] Start: 04-10-[address] [facility] Start: 04-09-[address] [facility] Start: 04-09-2024 Measuring intake and output [facility] Start: 04-08-[address] [facility] Start: 04-08-[address] [facility] Start: 04-08-2024 Administration of blood product [facility] Start: 04-08-[address] [facility] Start: 04-08-2024 Measuring intake and output [facility] Start: 04-08-2024 Administration of blood product [facility] Start: 04-08-[address] [facility] Start: 04-07-2024 End: 04-07-[address] [facility] Start: 04-06-2024 Application of intermittent pneumatic compression device [facility] Start: 04-06-2024 Consultation for treatment [facility] Start: 04-06-2024 Following clinical pathway protocol [facility] Start: 04-06-2024 Ambulation therapy management [facility] Start: 04-06-2024 Assessment of risk of venous thromboembolism [facility] Start: 04-06-2024 Deep breathing and coughing exercises [facility] Start: 04-06-2024 Documentation procedure [facility] Start: 04-06-2024 Following clinical pathway protocol [facility] Start: 04-06-2024 End: 04-07-2024 Irrigation of urinary bladder [facility] Start: 04-06-2024 Provision of activity privileges [facility] Start: 04-06-2024 Taking patient vital signs [facility] Start: 04-06-2024 Vital signs measurements [facility] Start: 04-06-2024 End: 04-06-[address] [facility] Start: 04-06-[address] [facility] Start: 04-03-[address] [facility] Start: 11-22-2023 Influenza vaccination Influenza Vaccine (Season Ended) [facility] Start: 06-25-2023 End: 09-24-2023 MONOCLONAL PROTEIN, SERUM (BLOOD) [facility] Work Phone: Comment on above: Expected: 06/25/2023, Expires: Start: 04-24-[address] [facility] Start: 04-24-[address] [facility] Start: 04-21-2023 Iv infusion therapy/prophylaxis /dx 1st to 1 hr THER/PROPH/DIAG IV INF INIT [facility] Start: 04-04-[address] [facility] Start: 04-03-[address] [facility] Start: 04-01-2023 Referral to gastroenterology service [facility] Start: 03-31-2023 Referral to drafter geophysical [facility] Start: 03-31-2023 Assessment of risk of venous thromboembolism [facility] Start: 03-31-2023 Consultation for treatment [facility] Start: 03-31-[address] [facility] Start: 03-31-2023 Inhalation therapy procedure [facility] Start: 03-31-2023 Insertion of catheter into peripheral vein [facility] Start: 03-31-2023 Introduction of urinary catheter [facility] Start: 03-31-2023 Measuring intake and output [facility] Start: 03-31-[address] [facility] Start: 03-31-2023 Providing care according to standard [facility] Start: 03-31-2023 Provision of activity privileges [facility] Start: 03-31-2023 Referral to occupational therapist [facility] Start: 03-31-2023 Referral to service [facility] Start: 03-31-2023 Tobacco use cessation education [facility] Start: 03-31-[address] [facility] Start: 03-31-[address] [facility] Start: 03-31-2023 Following clinical pathway protocol [facility] Start: 03-31-2023 Leukocyte reduced red blood cells [facility] Start: 03-31-[address] [facility] Start: 03-31-2023 Administration of blood product [facility] Start: 03-31-[address] [facility] Start: 03-31-2023 Legionella pneumophila Ag [Presence] in Urine [facility] Start: 03-31-2023 Measurement of occult blood in stool specimen using immunoassay [facility] Start: 03-31-2023 Respiratory pathogens DNA and RNA panel - Respiratory specimen by BENJAMIN with probe detection [facility] Start: 03-31-2023 Streptococcus pneumoniae antigen assay [facility] Start: 03-31-[address] [facility] Start: 03-31-2023 Hospital admission, emergency, from emergency room, medical nature [facility] Start: 03-31-[address] [facility] Start: 03-31-2023 SARS-CoV-2, Influenza & RSV (PCR) SARS-CoV-2, Influenza & RSV (PCR) [facility] Start: 03-31-[address] [facility] Start: 03-31-2023 Brain natriuretic peptide measurement [facility] Start: 03-31-2023 Plain chest X-ray Chest PA and Lateral [facility] Start: 03-31-2023 XR Chest PA and Lateral [facility] Start: 03-31-2023 End: 04-01-[address] [facility] Start: 03-31-[address] [facility] Start: 03-26-2023 Anaerobic microbial culture Anaerobic Culture [facility] Start: 03-26-2023 Source specific culture [facility] Start: 03-23-2023 Advance Directive Discussion Advance Directive Discussion [facility] Start: 03-23-2023 Behavioral Health Screening Behavioral Health Screening [facility] Start: 03-05-2023 Lipid panel Lipid Screening [facility] Start: 11-21-2022 Covid-19 Vaccine ( season) Covid-19 Vaccine ( season) [facility] Start: 11-20-2022 Catheterization of vein [facility] Start: 11-20-2022 Following clinical pathway protocol [facility] Start: 11-20-[address] [facility] Start: 11-20-[address] [facility] Start: 11-20-2022 Taking patient vital signs [facility] Start: 11-20-2022 Vital signs measurements [facility] Start: 11-20-[address] [facility] Start: 11-20-2022 Amputation of hand Amputation Finger/Hand (Left) [facility] Start: 11-20-[address] [facility] Start: 11-19-2022 Anaerobic Culture Anaerobic Culture [facility] Start: 11-19-2022 Microscopic observation [Identifier] in Unspecified specimen by Gram stain Gram Stain [facility] Start: 11-19-2022 Wound Culture Wound Culture [facility] Start: 08-06-2022 Simple rpr scalp/neck/ax/genit/trunk 7.6-12.5cm RPR S/N/AX/GEN/TRK7.6-12.[address] [facility] Start: 2021 Pneumococcal Vaccine: 65+ (3 of 3 - PPSV23 or PCV20) Pneumococcal Vaccine: 65+ (3 of 3 - PPSV23 or PCV20) [facility] Start: 03-05-2021 Diabetes Screening Diabetes Screening [facility] Start: 10-18-2019 Prostate specific antigen measurement Prostate Cancer Screening Discussion [facility] Start: 12-23-2017 End: 12-26-2016 *Hepatic Function Panel *Hepatic Function Panel [facility] Work Phone: Start: 12-23-2017 End: 12-26-2016 Lipid panel [AGGREGATE] *Lipid Profile CC PCP [facility] Work Phone: Start: 01-26-2017 End: 01-26-2017 Appointment Appointment [facility] Work Phone: Start: 01-09-2017 End: 12-23-2016 *Hepatic Function Panel *Hepatic Function Panel [facility] Work Phone: Start: 01-09-2017 End: 12-23-2016 Lipid panel [AGGREGATE] *Lipid Profile CC PCP [facility] Work Phone: Start: 12-08-2016 End: 12-08-2016 Carotid duplex Carotid duplex [facility] Work Phone: Start: 12-08-2016 End: 12-08-2016 Echocardiography Echocardiogram (complete) [facility] Work Phone: Start: 2016 RSV Vaccine (1 - 1-dose 60+ series) RSV Vaccine (1 - 1-dose 60+ series) [facility] Start: 02-04-2016 End: 08-28-2016 Echocardiography Echocardiogram (complete) [facility] Work Phone: Start: 02-04-2016 End: 02-04-2016 Follow Up Appt 1 year Follow Up Appt 1 year [facility] Work Phone: Start: 02-04-2016 End: 02-04-2016 PFM PFM [facility] Work Phone: Start: 01-10-2016 End: 01-10-2016 Echocardiography Echocardiogram (complete) [facility] Work Phone: Start: 12-22-2015 End: 01-16-2016 *Hepatic Function Panel *Hepatic Function Panel [facility] Work Phone: Start: 12-22-2015 End: 01-16-2016 Lipid panel [AGGREGATE] *Lipid Profile CC PCP [facility] Work Phone: Start: 10-18-2015 Pneumococcal Vaccine: 65+ (2 of 2 - PCV) Pneumococcal Vaccine: 65+ (2 of 2 - PCV) [facility] Start: 01-22-2015 End: 02-27-2015 *Hepatic Function Panel *Hepatic Function Panel [facility] Work Phone: Start: 01-22-2015 End: 01-22-2015 Carotid duplex Carotid duplex [facility] Work Phone: Start: 01-22-2015 End: 01-22-2015 Follow Up Appt 1 year Follow Up Appt 1 year [facility] Work Phone: Start: 01-22-2015 End: 02-27-2015 Lipid panel [AGGREGATE] *Lipid Profile CC PCP [facility] Work Phone: Start: 01-22-2015 End: 01-22-2015 PFM PFM [facility] Work Phone: Start: 01-18-2015 End: 10-18-2014 25-Hydroxyvitamin D2+25-Hydroxyvitamin D3 [Mass/volume] in Serum or Plasma *Vitamin D (Calciferol) [facility] Work Phone: Start: 01-18-2015 End: 12-27-2014 Cobalamins (Vitamin B12) *B-12 [facility] Work Phone: Start: 01-18-2015 End: 01-01-2015 Ferritin *Ferritin [facility] Work Phone: Start: 01-18-2015 End: 12-26-2014 Thyroid stimulating hormone (TSH) *TSH [facility] Work Phone: Start: 01-09-2015 End: 10-18-2014 *Hepatic Function Panel *Hepatic Function Panel [facility] Work Phone: Start: 01-09-2015 End: 10-18-2014 Lipid panel [AGGREGATE] *Lipid Profile CC PCP [facility] Work Phone: Start: 12-27-2014 End: 01-09-2014 *Hepatic Function Panel *Hepatic Function Panel [facility] Work Phone: Start: 12-27-2014 End: 01-09-2014 Lipid panel [AGGREGATE] *Lipid Profile CC PCP [facility] Work Phone: Start: 12-14-2014 End: 12-14-2014 Echocardiography Echocardiogram (complete) [facility] Work Phone: Start: 10-17-2014 End: 10-18-2014 *CBC with Differential *CBC with Differential [facility] Work Phone: Start: 10-17-2014 End: 10-18-2014 *CMP Complete Metabolic Panel *CMP Complete Metabolic Panel [facility] Work Phone: Start: 10-17-2014 End: 10-18-2014 *PTH (Parathyroid Hormone) *PTH (Parathyroid Hormone) [facility] Work Phone: Start: 10-17-2014 End: 10-18-2014 25-Hydroxyvitamin D2+25-Hydroxyvitamin D3 [Mass/volume] in Serum or Plasma *Vitamin D (Calciferol) [facility] Work Phone: Start: 10-17-2014 End: 10-18-2014 Cobalamins (Vitamin B12) *B-12 [facility] Work Phone: Start: 10-17-2014 End: 10-18-2014 Ferritin *Ferritin [facility] Work Phone: Start: 10-17-2014 End: 10-18-2014 Folate *FOLS Folates-Folic Acid, Serum [facility] Work Phone: Start: 10-17-2014 End: 10-18-2014 Lipid panel [AGGREGATE] *Lipid Profile [facility] Work Phone: Start: 10-17-2014 End: 10-18-2014 PSA *PSA (Prostate Specific Antigen) [facility] Work Phone: Start: 10-17-2014 End: 10-18-2014 Thyroid stimulating hormone (TSH) *TSH [facility] Work Phone: Start: 01-09-2014 End: 01-09-2014 *Hepatic Function Panel *Hepatic Function Panel [facility] Phone: Start: 01-09-2014 End: 01-10-2016 Ecg routine ecg w/least 12 lds w/i&r EKG (In office) [facility] Phone: Start: 01-09-2014 End: 01-09-2014 Follow Up Appt 1 year Follow Up Appt 1 year [facility] Phone: Start: 01-09-2014 End: 01-09-2014 Follow Up Appt 6 months Follow Up Appt 6 months [facility] Phone: Start: 01-09-2014 End: 01-09-2014 Lipid panel [AGGREGATE] *Lipid Profile CC PCP [facility] Work Phone: Start: 01-09-2014 End: 01-09-2014 MMM MMM [facility] Work Phone: Start: 12-22-2013 End: 12-26-2013 Echocardiography Echocardiogram (complete) [facility] Work Phone: Start: 12-21-2013 End: 12-27-2013 *Hepatic Function Panel *Hepatic Function Panel [facility] Work Phone: Start: 12-21-2013 End: 12-27-2013 Lipid panel [AGGREGATE] *Lipid Profile CC PCP [facility] Work Phone: Start: 08-12-2013 End: 11-07-2013 Thyroid stimulating hormone (TSH) *TSH [facility] Work Phone: Start: 07-01-2013 End: 11-07-2013 PSA *PSA, Annual Screening [facility] Work Phone: Start: 05-09-2013 End: 06-09-2013 Thyroid stimulating hormone (TSH) *TSH [facility] Work Phone: Start: 01-06-2013 End: 01-06-2013 Follow Up Appt 1 year Follow Up Appt 1 year [facility] Work Phone: Start: 01-06-2013 End: 01-06-2013 PFM PFM [facility] Work Phone: Start: 12-22-2012 End: 12-22-2012 Echocardiography Echocardiogram (complete) [facility] Work Phone: Start: 12-14-2012 End: 01-03-2013 Thyroid stimulating hormone (TSH) *TSH [facility] Work Phone: Start: 12-01-2012 End: 12-01-2012 CBC W Auto Differential panel - Blood *CBC without Diff [facility] Work Phone: Start: 12-01-2012 End: 12-01-2012 Thyroid stimulating hormone (TSH) *TSH [facility] Work Phone: Start: 10-25-2012 End: 12-01-2012 Thyroid stimulating hormone (TSH) *TSH [facility] Work Phone: Start: 07-16-2012 End: 01-10-2016 *Hepatic Function Panel *Hepatic Function Panel [facility] Work Phone: Start: 07-16-2012 End: 10-18-2014 Lipid panel [AGGREGATE] *Lipid Profile [facility] Work Phone: Start: 12-22-2011 End: 12-22-2011 Ceftriaxone sodium injection Ceftriaxone (Rocephin) per 250mg [facility] Work Phone: Start: 12-22-2011 End: 12-01-2012 Thyroid stimulating hormone (TSH) *TSH [facility] Work Phone: Start: 07-11-2011 End: 07-17-2011 *CBC with Differential *CBC with Differential [facility] Work Phone: Start: 07-11-2011 End: 07-17-2011 *Hepatic Function Panel *Hepatic Function Panel [facility] Work Phone: Start: 07-11-2011 End: 07-11-2011 Follow Up Appt 6 months Follow Up Appt 6 months [facility] Work Phone: Start: 07-11-2011 End: 07-17-2011 Lipid panel [AGGREGATE] *Lipid Profile [facility] Work Phone: Start: 07-11-2011 End: 07-17-2011 Thyroid stimulating hormone (TSH) *TSH [facility] Work Phone: Start: 07-11-2011 End: 07-17-2011 Thyroxine (T4) *T4 (Total) [facility] Work Phone: Start: 2011 Prostate specific antigen measurement Prostate Cancer Screening Discussion [facility] Start: 09-30-2010 End: 10-07-2010 Blood count manual cell count each *CBC with Differential [facility] Work Phone: Start: 09-30-2010 End: 10-07-2010 Comprehensive metabolic panel *CMP Complete Metabolic Panel [facility] Work Phone: Start: 09-30-2010 End: 09-30-2010 Follow Up as scheduled Follow Up as scheduled [facility] Work Phone: Start: 09-30-2010 End: 10-07-2010 Lipid panel *Lipid Profile [facility] Work Phone: Start: 09-30-2010 End: 10-07-2010 Thyroid stimulating hormone (TSH) *TSH [facility] Work Phone: Start: 07-18-2010 End: 10-07-2010 Blood count manual cell count each *CBC with Differential [facility] Work Phone: Start: 2006 Shingrix Vaccine (1 of 2) Shingrix Vaccine (1 of 2) [facility] Start: 2001 Screening for malignant neoplasm of colon [facility] Start: 1974 Annual PCP Team Chronic Disease Visit Annual PCP Team Chronic Disease Visit [facility] Start: 1974 BP Controlled (<130/80) BP Controlled (<130/80) [facility] Start: 1956 Abdominal aortic aneurysm screening Abdominal Aortic Aneurysm Screening [facility] [id number]. tumor marker [Units/volume] in Serum or Plasma [facility] Anion gap measurement [facility] Bacteria identified in Unspecified specimen by Anaerobe culture [facility] Basic metabolic 2008 panel with ionized calcium - Serum or Plasma [facility] Blood chemistry [facility] Brain natriuretic pe ptide measurement [facility] BUN/Creatinine ratio [facility] C reactive protein [Mass/volume] in Serum or Plasma [facility] Calcium [Mass/volume ] in Serum or Plasma [facility] Carbon dioxide, tota l [Moles/volume] in Serum or Plasma [facility] CBC W Auto Different ial panel - Blood [facility] End: 07-01-2024 CBC W Auto Differential panel - Blood COMPLETE BLOOD COUNT AND DIFFERENTIAL Lab Routine Other abnormality of red blood cells Every 2 months for 6 Occurrences starting 07/02/2023 until 07/01/2024 [facility] Work Phone: Comment on above: Every 2 months for 6 Occurrences startin g 07/02/2023 until 07/01/2024 CBC W Auto Different ial panel - Blood [facility] Chloride [Moles/volu me] in Serum or Plasma [facility] End: 07-01-2024 Cobalamin (Vitamin B12) [Mass/volume] in Serum or Plasma VITAMIN B12 Lab Routine Other abnormality of red blood cells Every 2 months for 6 Occurrences starting 07/02/2023 until 07/01/2024 [facility] Work Phone: Comment on above: Every 2 months for 6 Occurrences startin g 07/02/2023 until 07/01/2024 Complete blood count [facility] Comprehensive metabo lic 2000 panel - Serum or Plasma [facility] Creatinine [Moles/vo lume] in Serum or Plasma [facility] Electrocardiographic procedure [facility] End: 07-01-2024 Ferritin [Mass/volume] in Serum or Plasma FERR[facility] Lab Routine Other abnormality of red blood cells Every 2 months for 6 Occurrences starting 07/02/2023 until 07/01/2024 [facility] Work Phone: Comment on above: Every 2 months for 6 Occurrences startin g 07/02/2023 until 07/01/2024 Glucose [Mass/volume ] in Serum or Plasma [facility] Hemoglobin A1c/Hemoglobin.total in Blood [facility] End: 07-01-2024 Iron and Iron binding capacity panel - Serum or Plasma IRON AND TIBC Lab Routine Other abnormality of red blood cells Every 2 months for 6 Occurrences starting 07/02/2023 until 07/01/2024 [facility] Work Phone: Comment on above: Every 2 months for 6 Occurrences startin g 07/02/2023 until 07/01/2024 Lipid 1996 panel - S jessica or Plasma [facility] Liver stiffness by US.transient elastography [facility] Measurement of renal function [facility] Patient Education [facility] Work Phone: Patient referral [facility] Work Phone: Potassium [Moles/vol ume] in Serum or Plasma [facility] Prothrombin time [facility] Prothrombin time [facility] Replacement of elect ronic heart device, pulse generator [facility] Sodium [Moles/volume ] in Serum or Plasma [facility] Urea nitrogen [Mass/ volume] in Serum or Plasma [facility] Urinalysis complete panel - Urine [facility] US Heart [facility] Immunizations Immunization Date Immunization Notes Care Provider [facility] 12-27-2023 influenza, high dose seasonal, preservative-free Dr. Gracy Shin DO Work Phone: [facility] 08-06-2022 tetanus toxoid, reduced diphtheria toxoid, and acellular pertussis vaccine, adsorbed Dr. Gracy Shin Work Phone: [facility] 04-08-2022 influenza virus vaccine, unspecified formulation Reji Danielle MD Work Phone: [facility] 06-21-2020 Covid (Pfizer) Dr. Gracy robledo Work Phone: [facility] 05-31-2020 Covid (Pfizer) Dr. Gracy robledo Work Phone: [facility] 12-15-2016 pneumococcal conjuga te vaccine, [address] Gracy Shin Work Phone: [facility] Payers Date Payer Category Payer Self-pay [id number] 2024 Unknown [id number] 2023 Unknown [id number] 2021 Unknown [employer] SUPPLEMENT [id number] 2021-Present [phone] [id number] [place] [address] [facility] [id number] 2021 Unknown [id number] 2020 Medicare MEDICARE MEDICAR E A AND B [id number] 2020-Present [phone] [address] [address] [place] [address] Medicare [id number] 2020 Medicare [id number] 2016 Unknown [id number] Medicare MEDICARE PART A B [id number] Unknown [id number] Unknown [id number] 2.16.840.1.129579.3.579.2.462 Unknown [id number] 2.16.840.1.330023.3.579.2.462 Unknown [id number] 2.16.840.1.154631.3.579.2.462 Unknown [id number] 2.16.840.1.129309.3.579.2.462 Unknown [id number] 2.16.840.1.246656.3.579.2.462 Unknown [id number] 2.16.840.1.725692.3.579.2.462 Unknown [id number] 2.840.1.979286.3.579.2.462 Unknown [id number] 2.840.1.616119.3.579.2.462 Unknown [id number] 2.840.1.065484.3.579.2.462 Unknown [id number] 2.840.1.258234.3.579.2.462 Unknown [id number] 2.16.840.1.604971.3.579.2.462 Unknown [id number] 2.16.840.1.260756.3.579.2.462 Unknown [id number] 2.840.1.659553.3.579.2.462 Unknown [id number] 2..840.1.860096.3.579.2.462 Unknown [id number] 2.16.840.1.637756.3.579.2.462 Unknown [id number] 2.16.840.1.237035.3.579.2.462 Unknown [id number] 2.16.840.1.277655.3.579.2.462 Unknown [id number] 2.16.840.1.236630.3.579.2.462 Unknown [id number] 2..840.1.403123.3.579.2.462 Unknown [id number] 2.16.840.1.279920.3.579.2.462 Unknown [id number] 2.16.840.1.155720.3.579.2.462 Unknown [id number] 2.16.840.1.390443.3.579.2.462 Unknown [id number] 2.16.840.1.761013.3.579.2.462 Unknown [id number] 2.16.840.1.306375.3.579.2.462 Unknown [id number] 2.16.840.1.567200.3.579.2.462 Unknown [id number] 2..840.1.566934.3.579.2.462 Unknown [id number] 2.840.1.471822.3.579.2.462 Unknown [id number] 2.840.1.923821.3.579.2.462 Unknown [id number] 2.840.1.257117.3.579.2.462 Unknown [id number] 2.840.1.622511.3.579.2.462 Unknown [id number] 2.840.1.930203.3.579.2.462 Unknown [id number] 2.840.1.522413.3.579.2.462 Unknown [id number] 2.840.1.958431.3.579.2.462 Unknown [id number] 2.16840.1.768764.3.579.2.462 Unknown [id number] 2.16840.1.836818.3.579.2.462 Unknown [id number] 2.16.840.1.290820.3.579.2.462 Unknown [id number] Unknown [id number] Unknown [id number] Unknown [id number] Unknown [id number] Unknown [id number] Unknown [id number] Social History Date Type Detail Facility Start: 10-09-2021 End: 06-17-2023 Tobacco smoking status DEIS Unknown if ever smoked [facility] Start: 1955 Sex Assigned At Male 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 Start: 06-20-2024 Sex Male (finding) [facility] Medical Equipment Procedure Code Equipment Code Equipment Original Text Equipment Identifier Dates Homograft Artic Valve Hva - [id number] Start: 01-19-2018 Comment on above: Description: [id number] [id number] Lead Capsure Epi 8fr Steroid Eluting Silicone 35cm Pacing Is-1 Bipolar - [id number] Start: 01-19-2018 Lead Capsure Epi 8fr Steroid Eluting Silicone 35cm Pacing Is-1 Bipolar - [id number] Start: 01-19-2018 Lead Capsure Epi 8fr Steroid Eluting Silicone 35cm Pacing Is-1 Bipolar - [id number] Start: 01-19-2018 Pacemkr Percepta Mri Quad Df-1 - [id number] Start: 01-19-2018 ([id number]) Cardiac resynchronization therapy implantable pacemaker ()[id number] 1 FDA Start: 10-11-2024 Goals Date Patient Goal Desired Activity /State Functional Status Date Assessment Result Facility 04-10-2024 Functional status Chair [facility] Work Phone: 04-03-2023 Functional status Chair [facility] Work Phone: Mental Status Date Assessment Result Facility 04-10-2024 Cognitive function Level Of Cons ciousness Awake;Alert;Appropriate;Follow s Commands [facility] Work Phone: 04-09-2024 Cognitive function Voice/Name [facility] Work Phone: 04-21-2023 Cognitive function Level Of Cons ciousness Awake;Alert [facility] Work Phone: 04-14-2023 Cognitive function Voice/Name [facility] Work Phone: 04-03-2023 Cognitive function Voice/Name [facility] Work Phone: 11-20-2022 Cognitive function Voice/Name [facility] Work Phone: Clinical Notes 12-21-2017 to 10-18-2024 Note Date & Type Note Facility 10-18-2024 Procedure note [facility] 10-11-[address] [facility] 09-19-2024 Procedure note [facility] 09-19-2024 Evaluation note Diagnosis Onset Date Resolution PAF (paroxysmal atrial fibrillation) acute September 19, 2024 8:12am Hyperlipidemia chronic September 19, 2024 8:12am Presence of permanent cardiac pacemaker December, chronic September 19, 2024 8:12am History of aortic valve replacement with bioprosthetic valve December, resolved September 19, 2024 8:12am History of tricuspid valve repair December, resolved September 19, 2024 8:12am Complete heart block, post-surgical acute September 19, 2024 8:13am Pacemaker chronic September 19 8:13am Complete heart block, post-surgical acute October 18, 2024 8:23am Pacemaker chronic October 18 8:23am [facility] Work Phone: 1(613) 851-783006-13-2025 Radiology Diagnostic study note [facility] [address] [place] [address] ABD Limited w/ Elastography MR#: [id number] Acct: [id number] Name: FRANK WHITE Rep #: [id number] : 1955 M 69 From: Tavon Carlos MD PCP: Dr. Gracy Shin, DO Status: REG CLI Study:ABD Limited w/ Elastography Date of Exa m: 09/02/24 Exam# [id number] Ordering Dr: Erika Alford MD PROCEDURE: ABD LIMITED W/ ELASTOGRAPHY REASON FOR EXAM: CHOLELITHIASIS, SABRINA HEPATIS MASS?, LN? COMPARISON: Prior study dated June 05, 2023. TECHNIQUE: Right upper quadrant abdominal ultrasound. Franko ElastQ Imaging shear wave elastography for non-invasive assessment of liver tissue stiffness. Franko EPIQ Elite. FINDINGS: LIVER: Size: Unremarkable Length: 16.8 cm Echotexture: Diffusely echogenic suggesting fatty infiltration Contour: Normal Lesions: There is a 3 cm x 3.4 cm 2.9 cm lymph node in the region of the sabrina hepatis. Elastography: EQI Med: 11.4 kPa EQI Med Duran: 1.93 m/s IQR/Med: 21.5 %* GALLBLADDER: Multiple echogenic gallstones are identified. COMMON BILE DUCT: Dilated measuring up to 9.5 mm . PANCREAS: Normal Visualized portions of the right kidney are unremarkable. No right upper quadrant ascites. US/ABD Limited w/ Elastography IMPRESSION: MODERATE TO SEVERE HEPATIC FIBROSIS Fatty infiltration of the liver. Multiple gallstones. Findings suggestive of a 3 cm x 3.4 cm 2.9 cm lymph node in the region of the sabrina hepatis. Reference Values: SRU <1.37 m/s (5.7kPa): No to mild fibrosis 1.37 m/s - 2.2 m/s: Moderate to severe fibrosis >2.2 m/s (15kPa): Significant fibrosis / cirrhosis METAVIR Score F2 or higher: 1.34 m/s (5.7kPa) F3 or higher: 1.55 m/s (7.3kPa) F4: 1.80 m/s (10kPa) * If the IQR/Med is >30%, the variance in the measurements is a large and the accuracy of the measurement may be in question. Reading Location: [id number] CC: Dr. Gracy Shin DO; Dr. Tani Alford MD ~ Client Experience Specialist: Signed [facility]06-02-2025 Evaluation note* Diagnosis Onset Date Resolution Status Admit Date Hidradenitis suppurativa acute August 22, 2024 2:24pm Petechial rash acute August 22, 2024 2:24pm PAF (paroxysmal atrial fibrillation) acute September 19, 2024 8:12am Hyperlipidemia chronic September 19, 2024 8:12am Presence of permanent cardia c pacemaker December, chronic September 19, 2024 8:12am History of aortic valve replacement with bioprosthetic valve December, resolved September 19, 2024 8:12am History of tricuspid valve repair December, resolved September 19, 2024 8:12am Complete heart block, post-surgical acute September 19, 2024 8:13am Pacemaker chronic September 19 8:13am Complete heart block, post-surgical acute October 18, 2024 8:23am Pacemaker chronic October 18 8:23am [facility] Work Phone: 1(912) 614-499904-25-2025 Evaluation note* Diagnosis Onset Date Resolution Status Admit Date Hidradenitis suppurativa acute July 15, 2024 9:11am Hidradenitis suppurativa acute August 22, 2024 2:24pm Petechial rash acute August 22, 2024 2:24pm PAF (paroxysmal atrial fibrillation) acute September 19, 2024 8:12am Hyperlipidemia chronic September 19, 2024 8:12am Presence of permanent cardia c pacemaker December, chronic September 19, 2024 8:12am History of aortic valve replacement with bioprosthetic valve December, resolved September 19, 2024 8:12am History of tricuspid valve repair December, resolved September 19, 2024 8:12am Complete heart block, post-surgical acute September 19, 2024 8:13am Pacemaker chronic September 19 8:13am Complete heart block, post-surgical acute October 18, 2024 8:23am Pacemaker chronic October 18 8:23am [facility] Work Phone: 1(304) 617-147404-03-2025 Evaluation note* Diagnosis Onset Date Resolution Status Admit Date Left buttock abscess acute Apri 2024 9:41am Hidradenitis suppurativa acute July 15, 2024 9:11am Hidradenitis suppurativa acute August 22, 2024 2:24pm Petechial rash acute August 22, 2024 2:24pm PAF (paroxysmal atrial fibrillation) acute September 19, 2024 8:12am Hyperlipidemia chronic September 19, 2024 8:12am Presence of permanent cardia c pacemaker December, chronic September 19, 2024 8:12am History of aortic valve replacement with bioprosthetic valve December, resolved September 19, 2024 8:12am History of tricuspid valve repair December, resolved September 19, 2024 8:12am Complete heart block, post-surgical acute September 19, 2024 8:13am Pacemaker chronic September 19 8:13am [facility] Work Phone: 1(337) 772-660704-03-2025 Evaluation note* Diagnosis Onset Date Resolution Status Admit Date Left buttock abscess acute Apri l 2024 9:41am Hidradenitis suppurativa acute July 15, 2024 9:11am Hidradenitis suppurativa acute August 22, 2024 2:24pm Petechial rash acute August 22, 2024 2:24pm PAF (paroxysmal atrial fibrillation) acute September 19, 2024 8:12am Hyperlipidemia chronic September 19, 2024 8:12am Presence of permanent cardia c pacemaker December, chronic September 19, 2024 8:12am History of aortic valve replacement with bioprosthetic valve December, resolved September 19, 2024 8:12am History of tricuspid valve repair December, resolved September 19, 2024 8:12am Complete heart block, post-surgical acute September 19, 2024 8:13am Pacemaker chronic September 19 8:13am Complete heart block, post-surgical acute October 18, 2024 8:23am Pacemaker chronic October 18 8:23am [facility] Work Phone: 1(165) 394-530803-26-2025 Evaluation note* Diagnosis Onset Date Resolution Status Admit Date Pilonidal cyst with abscess deleted June 15, 2024 12:39pm Left buttock abscess acute Apri l 2024 9:41am Hidradenitis suppurativa acute July 15, 2024 9:11am Hidradenitis suppurativa acute August 22, 2024 2:24pm Petechial rash acute August 22, 2024 2:24pm [facility] Work Phone: 1(958) 780-600903-26-2025 Evaluation note* Diagnosis Onset Date Resolution Status Admit Date Pilonidal cyst with abscess deleted June 15, 2024 12:39pm Left buttock abscess acute Apri l 2024 9:41am Hidradenitis suppurativa acute July 15, 2024 9:11am Hidradenitis suppurativa acute August 22, 2024 2:24pm Petechial rash acute August 22, 2024 2:24pm PAF (paroxysmal atrial fibrillation) acute September 19, 2024 8:12am Hyperlipidemia chronic September 19, 2024 8:12am Presence of permanent cardia c pacemaker December, chronic September 19, 2024 8:12am History of aortic valve replacement with bioprosthetic valve December, resolved September 19, 2024 8:12am History of tricuspid valve repair December, resolved September 19, 2024 8:12am [facility] Work Phone: 1(684) 224-494403-26-2025 Evaluation note* Diagnosis Onset Date Resolution Status Admit Date Pilonidal cyst with abscess deleted June 15, 2024 12:39pm Left buttock abscess acute Apri l 2024 9:41am Hidradenitis suppurativa acute July 15, 2024 9:11am Hidradenitis suppurativa acute August 22, 2024 2:24pm Petechial rash acute August 22, 2024 2:24pm PAF (paroxysmal atrial fibrillation) acute September 19, 2024 8:12am Hyperlipidemia chronic September 19, 2024 8:12am Presence of permanent cardia c pacemaker December, chronic September 19, 2024 8:12am History of aortic valve replacement with bioprosthetic valve December, resolved September 19, 2024 8:12am History of tricuspid valve repair December, resolved September 19, 2024 8:12am Complete heart block, post-surgical acute September 19, 2024 8:13am Pacemaker chronic September 19 8:13am [facility] Work Phone: 1(925) 577-232902-11-2025 Evaluation note* Diagnosis Onset Date Resolution Status Admit Date Nicotine dependence, cigarettes, in remission chronic ua y 2024 10:33am Pilonidal cyst with abscess acute June 15, 2024 12:39pm Left buttock abscess acute Apri l 2024 9:41am Hidradenitis suppurativa acute July 15, 2024 9:11am [facility] Work Phone: 1(947) 468-658801-19-2025 [facility]01-15-2025 [facility]12-13-2024 Evaluation note* Diagnosis Onset Date Resolution Status Admit Date Cholelithiasis chronic February 202023 10:49am Iron deficiency anemia chronic De cember 2023 10:49am Acute urinary retention acute J anuary 2024 4:20pm Nicotine dependence, cigarettes, in remission chronic ua y 2024 10:33am Pilonidal cyst with abscess acute June 15, 2024 12:39pm [facility] Work Phone: 1(398) 749-358404-11-2024 History of Present illness Narrative* Reji Danielle MD - 07/02/2023 11:15 AM EDT Phone call. Labs reviewed. Suspect elevated IgG and ctyopenias reactive. Inflammatory state. Will recheck cbc and vitamin levels in 2 months. 15 minutes in prep, call and documentation. Reji Danielle MD July 02, 2023 documented in [facility] NoteHNO ID: [id number] Author: REJI DANIELLE MD Service: ? Author Type: Physician Type: Progress Notes Filed: 07/07/2023 10:47 Note Text: Phone call. Labs reviewed. Suspect elevated IgG and ctyopenias reactive. Inflammatory state. Will recheck cbc and vitamin levels in 2 months. 15 minutes in prep, call and documentation. Reji Danielle MD [facility] 01[facility] History of Present illness Narrative* Reji Danielle MD - 06/25/2023 10:38 AM EDT HISTORY OF PRESENT ILLNESS: Frank White is a 68 year old male h/o gastric bypass 1990s needing occ iron infusion. March 2023 hospital stay got transfusion and iron infusion was having pica. 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 Notes no bleeding currently Reviewed US and CT done at [place], he is scheduled to see liver specialist in August CLINICAL IMPRESSION: Anemia macrocytic, mild thrombocytopenia, possible due to fatty liver hepatomegaly RECOMMENDATION/PLAN: 1. Labs as ordered, follow up next few weeks Written and verbal health teaching given to patient, patient verbalizes understanding and agrees with treatment plan. 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 HTN (hypertension) Hx of sick sinus syndrome PAST SURGICAL HISTORY Procedure Laterality Date CARPAL TUNNEL DIALYSIS CATHETER PROCEDURE (W NOTE) 12/27/2017 GASTRIC BYPASS, JOSSY-EN-Y 1996 PERCUT AORTIC VALVE REPLACE 05/07/2017 FAMILY HISTORY Problem Relation Age of Onset Ischemic Heart Disease Mother other (hypothyroidism) Mother Ischemic Heart Disease Father Thyroid Cancer Sister Social History Tobacco Use Smoking status: Every Day Types: Cigars, Cigarettes Smokeless tobacco: Never Tobacco comments: States he quit cigarretes years ago 25 yr ppd previously, last had cigar in october Substance Use Topics Alcohol use: No Drug use: No ALLERGIES: ALLERGIES Allergen Reactions Bactrim [Sulfametho* Other: See Comments affected his potassium level Penicillin Hives CURRENT OUTPATIENT MEDICATIONS: furosemide (LASIX) 40 mg tablet Take 40 mg by mouth once daily. carvedilol (COREG) 25 mg tablet Take 1 tablet by mouth twice daily. cholecalciferol 3,000 unit tab Take 1 tablet by mouth once daily. (Patient taking differently: Take2,000 Units by mouth once daily.) thiamine (VITAMIN B1) 100 mg tablet Take 1 tablet by mouth once daily. pantoprazole DR (PROTONIX) 20 mg tablet Take 1 tablet by mouth once daily. (Patient taking differently: Take 180 mg by mouth once daily.) atorvastatin (LIPITOR) 80 mg tablet Take 40 mg by mouth once daily. levothyroxine (LEVOXYL) 200 mcg tablet Take 200 mcg by mouth daily before breakfast. cyanocobalamin (VITAMIN B-12) 100 mcg tab Take 500 mcg by mouth once daily. SODIUM BICARBONATE ORAL Take by mouth. calcium acetate 667 mg (169 mg calcium)/5 mL soln Take by mouth. (Patient not taking: Reported on 06/25/2023) acetaminophen (TYLENOL) 325 mg tablet Take 1-2 tablets by mouth every 4 hours as needed for Pain (for mild to moderate pain). aspirin 81 mg chewable tablet Take 2 tablets by mouth once daily. REVIEW OF SYSTEMS: GENERAL: No fever, night sweats, weight loss or malaise. All other reviewed and negative other than HPI. PHYSICAL EXAMINATION: VITAL SIGNS: BP 143/83 Pulse 72 Temp 97.9 Resp 12 Wt 212 lb (96.2kg) SpO2 93% GENERAL APPEARANCE: Well appearing, in no acute distress, alert and oriented x3, well-hydrated, well nourished. I spent a total of 45 minutes on the date of the service which included preparing to see the patient, [id number] patient care, completing clinical documentation, obtaining and/or reviewing separately obtained history, counseling and educating the patient/family/caregiver, ordering medications, elisa ts, or procedures, independently interpreting results (not separately reported), and communicating results to the patient/family/caregiver. Electronically Signed: Reji Danielle MD June 25, 2023 10:38 AM documented in this encounter[facility] Discharge summary Author Larry Dunbar [facility] April 03, 2023 2:06pm Note Date/Time April 03, 2023 2 :04pm [facility] Medical Records Department [address] [place] [address] Instructions for Home/Discharge Instructions 04/03/23 1403 MR#: [id number] Acct: [id number] Name: FRANK WHITE Rep #:[id number] : 1955 68 From: Larry humphreys DO PCP: Dr. Gracy Shin DO Status:ADM IN Discharge Instructions Diet Discharge Diet: No restrictions Activity Discharge Activity: No Restrictions Weight Bearing Status: Full weight bearing Follow Up Care Test Results: Test results from this visit will be discussed in further detail at your follow- up appointment, if applicable. Discharge Plan Admission Admit Date/Time: 03/31/23 15:44 Primary Reason for Your Visit: Shortness of breath with exertion Attending Provider: Larry Dunbar Primary Care Provider: Gracy Shin Consulting Providers: Noemí Vela; Al Ramirez Discharge Orders/Prescriptions Prescriptions: New azithromycin 500 mg tablet 500 mg PO DAILY 4 Days Qty: 4 0RF Continued cholecalciferol (vitamin D3) 2,000 unit tablet 2,000 unit tablet 2,000 unit PO DAILY pantoprazole 20 mg tablet,delayed release (DR/EC) 40 mg PO BID Farxiga 10 mg tablet 10 mg PO DAILY acetaminophen 500 MG tablet 1,000 mg PO Q4H PRN (Reason: Pain) levothyroxine 150 mcg tablet 150 mcg PO DAILY cyanocobalamin (vitamin B-12) 500 mcg tablet 500 mcg PO QDAY carvedilol 25 mg tablet 25 mg PO BID Qty: 180 4RF atorvastatin 20 mg tablet 20 mg PO DAILY Qty: 90 3RF amlodipine 5 mg tablet 5 mg PO DAILY Qty: 90 3RF Eliquis 5 mg tablet 5 mg PO BID Qty: 180 4RF Discontinued metronidazole 500 mg tablet 500 mg PO TID 7 Days Qty: 21 0RF Referrals / Follow Up: Gracy Shin DO [Primary Care Provider] - Disposition Disposition (needs filled in before D/C Order can be placed): Home, Self Care 04/03/23 1406<Electronically signed by Larry Dunbar DO>Larry Dunbar DO CC: Dr. Noemí Vela MD; Dr. Al Ramirez MD; Dr. Gracy Shin DO ~ Signed [facility] Work Phone: 1(402) 976-943301-11-2024 Progress note Author César Fay [facility] April 02, 2023 6:00pm Note Date/Time April 02, 2023 6 :00pm [facility] Medical Records Department [address] [place] [address] Progress Note - GI 04/02/23 1757 MR#: [id number] Acct: [id number] Name: FRANK WHITE Rep #:[id number] : 1955 68 From: César Fay DO PCP: Dr. Gracy Shin DO Status:ADM IN Location: [place] [address] Subjective Subjective Patient denies any abdominal pain. He denies any chest pain or shortness of breath. Objective Data Objective Data Vital Signs: Vital Signs Temp Pulse Resp BP Pulse Ox O2 Del Method O2 Flow Rate 98.1 F 85 18 149/91 H 94 Room Air 3 04/02/23 15:04/02/23 15:04/02/23 15:04/02/23 15:04/02/23 15:04/02/23 15:04/02/23 13:25 Oxygen Flow Rate (L/min) 3 Oxygen Delivery Method Room Air Weight: 213 lb 13.574 oz Body Mass Index (BMI) 26.0 Intake & Output: Intake and Output for Last 24 Hours 03/31/23 04/01/23 04/02/23 23:59 23:59 23:59 Intake Total 1826 / 1826 3945 / 3945 1971.67 / 1971.67 Balance 1825 Lab / Micro Data 04/02/23 06:25 04/02/23 06:25 Labs: Laboratory Results - last 24 hr 04/02/23 06:25: WBC 4.8, RBC 2.89 L, Hgb 9.2 L, Hct 31.2 L, MCV 108.0 H, MCH 31.8, MCHC 29.5 L, RDW Std Deviation 68.8 H, RDW Coeff of Hugo 17.5 H, Plt Count 146 L, MPV 9.8, Differential Comment SCANNED, Sodium 139, Potassium 5.3 H, Chloride 112 H, Carbon Dioxide 23.0, Anion Gap 4 L, BUN 29 H, Creatinine 2.44 H,Estim Creat Clear Calc 36.07, Est GFR (MDRD) Af Amer 34 L, Est GFR (MDRD) Non-Af28 L, BUN/Creatinine Ratio 11.9, Glucose 91, Calcium 8.9 Micro: Microbiology 03/31/23 21:15 Sputum, Expectorated/Coughed Gram Stain - Final 03/31/23 21:15 Sputum, Expectorated/Coughed Respiratory Culture - Final Mixed normal respiratory arabella. No Streptococcus pneumoniae, beta-hemolytic Streptococcus or Staphylococcus aureus isolated. 04/01/23 05:40 Mucosa - Nasopharyngeal Respiratory Panel (PCR) - Final 03/31/23 21:15 Urine, Random Legionella Antigen - Final 03/31/23 21:15 Urine, Random Streptococcus pneumoniae Antigen (M - Final 03/31/23 21:15 Stool Stool Occult Blood (PAWAN) - Final Occult Blood Positive 03/31/23 14:50 Mucosa - Nose SARS-CoV-2, Influenza & RSV (PCR) - Final Physical Exam Const alert, oriented x3, no apparent distress and average body habitus General Appearance: cooperative and comfortable HEENT normocephalic, head/scalp atraumatic, hearing grossly normal bilaterally, nasal mucous membranes and turbinates normal and moist oral mucous membranes Eyes PERRL, EOMs intact bilaterally and conjunctivae normal Neck full ROM, no lymphadenopathy and supple Lymph Lymphatic: no lymphadenopathy noted Chest inspection of chest normal Resp Resp Narrative: Mildly decreased breath sounds bilaterally, no wheezing or crackles noted. Cardio regular rate, regular rhythm, no murmurs and peripheral pulses 2+ throughout GI normal to inspection, nondistended, normoactive bowel sounds, soft to palpation,non-tender and non-distended Back/Spine normal ROM Extremity normal to inspection, full ROM and no pedal edema Skin no rashes or lesions noted Neuro no focal motor deficits and no sensory deficits noted Speech: speech normal Psych mental status grossly normal Assessment & Plan Assessment/Plan (1) Community acquired pneumonia: QUALIFIERS: Laterality: left Lung location: unspecified part of lung Qualified Code(s): J18.9 - Pneumonia, unspecified organism PLAN: Plan The patient is a 68 y/o morbid obesity status post Jossy-en-Y gastric bypass, GERD w/ Hx of anastomotic gastric and jejunal ulcer/GI bleed, Chronic anemia/Fe deficiency anemia, who presents to the [facility] ED on 03/31/2023 with history of shortness of breath, lightheadedness and dizziness with recently noted anemia withworkup ongoing outpatient but given symptomatic prompted ED evaluation. He denies dark stools. Acute Symptomatic Anemia on Chronic/Fe deficiency anemia with concern possible GI bleed w/ previous history: Admission hemoglobin 8.9, previous to this 03/25/2023 hemoglobin 9.5 and prior to this 11/17/2022 hemoglobin 14.5 reportedly having this also worked up outpatient. He does have a history of anastomotic ulcers and I think he would benefit from an upper endoscopy. However he does not want to get an upper or lower endoscopyat this time. I told him that there is a possibility with his pancytopenia or bicytopenia that he may have some underlying liver disease that may be contributing to his symptoms. I told him that in the setting of iron deficiency anemia is not normal to have thrombocytopenia unless you have some type of splenic sequestration secondary tochronic liver disease or bone marrow issue. Therefore recommend iron transfusions and outpatient capsule endoscopy. Furtherrecommendation to follow that he has ultrasound of the right upper quadrant. 04/02-ultrasound of the liver: The liver measures 17.3 cm. There is a heterogeneous echogenicity of the liver. The bile ducts are within normal limits. There is hepatic color flow. The direction of portal flow is hepatopetal. There is no demonstrated mass lesion. Sometimes it can be difficult to see if there is any signs of cirrhosis on an ultrasound. It can give a heterogenous appearance. He will need a CT scan abdomen pelvis or MRI and he cannot have a contrast study due to his kidney function. I still suspecthis complete blood count is more consistent with a patient with portal hypertension. He has hepatopetal flow which we can see of cirrhosis along with heterogenicity. At this time I do not think he needs a liver biopsy but would possibly can get an MRI with out contrast to fully to evaluate his liver further. Hemoglobin seems to be stable. Patient did agree to have outpatient capsule endoscopy. As he does not want to have any procedures for his anemia with history of anastomotic ulcers status post Gastric bypass surgery. Charges/Coding Visit Charges Inpatient E&M: 73208 Subs Hosp L3 04/02/23 1800 <Electronically signed by César Fay DO> Cosigner Signature (if applicable): CC: ~ Signed [facility] Work Phone: 1(248) 951-463101-11-2024 Progress note Author Larry Dunbar [facility] April 02, 2023 3:58pm Note Date/Time April 02, 2023 3 :58pm [facility] Medical Records Department [address] [place] [address] Progress Note - Hospitalist 04/02/23 1555 MR#: [id number] Acct: [id number] Name: FRANK WHITE Rep #:[id number] : 1955 68 From: Larry humphreys DO PCP: Dr. Gracy Shin DO Status:ADM IN Location: [place] [address] Reason for Visit Reason for Visit: Diagnoses Anemia, unspecified (03/31/23) Hyperkalemia (03/31/23) Pneumonia, unspecified organism (03/31/23) Acute kidney failure, unspecified (03/31/23) Subjective Subjective Patient seen at bedside this morning. Sitting comfortably in bedside chair, conversing normally, no acute distress. Satting in mid 90s on 2 L nasal cannulaat rest, no increased work of breathing noted. Patient states that he required slightly more oxygen overnight and felt somewhat short of breath, but this has improved significantly this morning. Denies any worsening cough or sputum production. Denies any fevers or chills. Denies any chest pain. He was able to work fairly well with physical therapy this morning, feels okay with going home on discharge. No other acute concerns today. Objective Data Objective Data Vital Signs: Vital Signs Temp Pulse Resp BP Pulse Ox O2 Del Method O2 Flow Rate 98.1 F 85 18 149/91 H 94 Room Air 3 04/02/23 15:05 04/02/23 15:05 04/02/23 15:05 04/02/23 15:04/02/23 15:05 04/02/23 15:05 04/02/23 13:25 Oxygen Flow Rate (L/min) 3 Oxygen Delivery Method Room Air Weight: 97 kg Body Mass Index (BMI) 26.0 Intake & Output: Intake and Output for Last 24 Hours 03/31/23 04/01/23 04/02/23 23:59 23:59 23:59 Intake Total 1826 / 182 3945 / 3945 1521.67 / 1521.67 Balance 182 / 182 3945 / 3945 1521.67 / 1521.67 Lab / Micro Data 04/02/23 06:25 04/02/23 06:25 Labs: Laboratory Results - last 24 hr 04/02/23 06:25: WBC 4.8, RBC 2.89 L, Hgb 9.2 L, Hct 31.2 L, MCV 108.0 H, MCH 31.8, MCHC 29.5 L, RDW Std Deviation 68.8 H, RDW Coeff of Hugo 17.5 H, Plt Count 146 L, MPV 9.8, Differential Comment SCANNED, Sodium 139, Potassium 5.3 H, Chloride 112 H, Carbon Dioxide 23.0, Anion Gap 4 L, BUN 29 H, Creatinine 2.44 H,Estim Creat Clear Calc 36.07, Est GFR (MDRD) Af Amer 34 L, Est GFR (MDRD) Non-Af28 L, BUN/Creatinine Ratio 11.9, Glucose 91, Calcium 8.9 Micro: Microbiology 03/31/23 21:15 Sputum, Expectorated/Coughed Gram Stain - Final 03/31/23 21:15 Sputum, Expectorated/Coughed Respiratory Culture - Final Mixed normal respiratory arabella. No Streptococcus pneumoniae, beta-hemolytic Streptococcus or Staphylococcus aureus isolated. 04/01/23 05:40 Mucosa - Nasopharyngeal Respiratory Panel (PCR) - Final 03/31/23 21:15 Urine, Random Legionella Antigen - Final 03/31/23 21:15 Urine, Random Streptococcus pneumoniae Antigen (M - Final 03/31/23 21:15 Stool Stool Occult Blood (PAWAN) - Final Occult Blood Positive 03/31/23 14:50 Mucosa - Nose SARS-CoV-2, Influenza & RSV (PCR) - Final Physical Exam Const alert, oriented x3, no apparent distress and average body habitus General Appearance: cooperative and comfortable HEENT normocephalic, head/scalp atraumatic, hearing grossly normal bilaterally, nasal mucous membranes and turbinates normal and moist oral mucous membranes Eyes PERRL, EOMs intact bilaterally and conjunctivae normal Neck full ROM, no lymphadenopathy and supple Lymph Lymphatic: no lymphadenopathy noted Chest inspection of chest normal Resp Resp Narrative: Mildly decreased breath sounds bilaterally, no wheezing or crackles noted. Cardio regular rate, regular rhythm, no murmurs and peripheral pulses 2+ throughout GI normal to inspection, nondistended, normoactive bowel sounds, soft to palpation,non-tender and non-distended Back/Spine normal ROM Extremity normal to inspection, full ROM and no pedal edema Skin no rashes or lesions noted Neuro no focal motor deficits and no sensory deficits noted Speech: speech normal Psych mental status grossly normal Assessment & Plan Assessment/Plan (1) Community acquired pneumonia: QUALIFIERS: Laterality: left Lung location: unspecified part of lung Qualified Code(s): J18.9 - Pneumonia, unspecified organism (2) IRINA (acute kidney injury): (3) Anemia: (4) Hyperkalemia: PLAN: Plan Patient is a 68-year-old male who presented to [facility] ED on 03/31/2023 with worsening shortness of breath with exertion. 1. Right lower lobe community-acquired pneumonia with unknown organism, with acute hypoxia Chest x-ray on admit showed right lower lobe infiltrate with blunting of right costophrenic angle concerning for pneumonia. Not hypoxia on room air to mid 80s, improved to low 90s on 2 L nasal cannula. WBC count normal, afebrile, hemodynamically stable, did not meet sepsis criteria. COVID/flu/RSV negative inED. Sputum culture with no growth to date. Urine antigens negative. Full respiratory PCR panel negative. ? Continue ceftriaxone and azithromycin for now. Will plan to de-escalate to p.o. antibiotics on discharge with plan for 7-day course of antibiotics total. Hopeful that patient will be able to be weaned off of supplemental oxygen prior to discharge. Will plan for home O2 eval prior to discharge. 2. Acute on chronic iron deficiency anemia, concern for upper GI bleed, mild thrombocytopenia Hemoglobin 8.9 on admit, MCV 109, platelets 146. Hemoglobin 9.5 on 03/25/23, but prior to that baseline hemoglobin appears to be around 12-13. Fecal occult stool positive in ED. Patient denied any dark or bloody bowel movements. Patient does have history of iron deficiency anemia secondary to previous gastric bypass surgery. Also has history of anastomotic ulcers back in 2018. ? GI following. Notably had multiple hemoglobin checks on 03/31 and 04/01 with stable hemoglobin around 9. Dr. Fay discussed with patient in 04/01, recommendation is for upper endoscopy but patient does not want to get an upper or lower endoscopy at this time. Liver ultrasound did not show evidence of underlying liver disease. GI recommending outpatient iron transfusions and outpatient capsule endoscopy. Monitor CBC daily. 3. IRINA on CKD stage III, improving; hyperkalemia, improving Creatinine 2.97, BUN 44, potassium 6.9 on admit. Baseline creatinine around 1.8- 2.2. 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 Follows with Dr. Ramirez outpatient. Hashistory of hyperkalemia, had been on Lokelma in the past but discontinued due tocost. Suspected that both IRINA and hyperkalemia are in part due to recently starting Bactrim for buttock abscess as noted below, as well as likely poor p.o.intake over the last several days. Treated with multiple doses of Kayexalate, insulin, calcium, D50 and bicarb drip on admission with improvement of potassiumto 5.5. Bicarb drip discontinued on 04/01. ? Nephrology following. Creatinine 2.44 on 04/02 with adequate urine output, continue to monitor urine output and BMP daily. Treating with IV antibiotics asabove, hold on Bactrim going forward. Chronic medical conditions: ? Recent anaerobic cocci/gram-negative jaycee left buttock abscess: I&D in office with surgery on 03/25, cultures on 03/26 with gram-negative jaycee preliminary growth. Holding Bactrim as noted above, treating with IV ceftriaxone. ? Valvular heart disease with history of previous endocarditis: Previous aortic valve replacement as well as tricuspid valve repair. Most recent echo in howed EF 60%, moderate concentric LVH, no significant valve issues. Continue outpatient follow-up with cardiology. ? Paroxysmal A-fib: Holding home Eliquis for now, will plan to resume on discharge. ? History of CVA: Continue statin, holding Eliquis. ? History of sick sinus syndrome s/p pacemaker placement ? Hypertension, hyperlipidemia: Continue home statin, Coreg, amlodipine. ? Hypothyroidism: Continue home Synthroid. ? GERD: Continue home p.o. PPI twice daily. ? History of morbid obesity s/p gastric bypass surgery in 1995 DVT prophylaxis: SCDs CODE STATUS: Full code, verified Expected disposition: Home, 1 to 2 days Total clinical time spent by myself addressing the patient's medical issues, reviewing all the data, and collaborating with patient's care team: 35 minutes. Charges/Coding Visit Charges Inpatient E&M: 87315 Subs Hosp L2 04/02/23 0545 <Electronically signed by Larry Dunbar DO> Cosigner Signature (if applicable): CC: ~ Signed [facility] Work Phone: 1(894) 457-311701-10-2024 Progress note Author Larry [facility] April 01, 2023 5:40pm Note Date/Time April 01, 2023 5 :22pm [facility] Medical Records Department [address] [place] [address] Progress Note - Hospitalist 04/01/23 1715 MR#: [id number] Acct: [id number] Name: FRANK WHITE Rep #:[id number] : 1955 68 From: Larry humphreys DO PCP: Dr. Gracy Shin, Status:ADM IN Location: [place] [id number] Reason for Visit Reason for Visit: Diagnoses Pneumonia, unspecified organism (03/31/23) Subjective Subjective Patient seen at bedside this morning. Sitting comfortably in bedside chair, conversing normally, no acute distress. Patient was breathing comfortably on 2 L nasal cannula, no increased work of breathing noted. Patient denies any shortness of breath at rest. States he has some mild cough with some shortness of breath on exertion. He denies any sputum production. He otherwise denies any fevers or chills. Denies any other pain or discomfort. No other acute concerns. Objective Data Objective Data Vital Signs: Vital Signs Temp Pulse Resp BP Pulse Ox O2 Del Method O2 Flow Rate 98 F 61 18 148/61 H 94 Room Air 3 04/01/23 15:20 04/01/23 15:20 04/01/23 15:20 04/01/23 15:20 04/01/23 15:20 04/01/23 15:30 04/01/23 10:24 Oxygen Flow Rate (L/min) 3 Oxygen Delivery Method Room Air Weight: 96.7 kg Body Mass Index (BMI) 25.9 Intake & Output: Intake and Output for Last 24 Hours 03/30/23 03/31/23 04/01/23 23:59 23:59 23:59 Intake Total 1826 / 1826 2805 / 2805 Balance 1826 / 1826 2805 / 2805 Lab / Micro Data 04/01/23 05:45 04/01/23 05:45 Labs: Laboratory Results - last 24 hr 03/31/23 16:40: Blood Type A POSITIVE, Antibody Screen NEGATIVE, Crossmatch See Detail 03/31/23 18:50: Hgb 8.7 L, Hct 29.3 L, Sodium 138, Potassium 6.1 H*, Chloride 117 H, Carbon Dioxide 20.0 L, Anion Gap 1 L, BUN 44 H, Creatinine 2.82 H, Estim Creat Clear Calc 31.21, Est GFR (MDRD) Af Amer 29 L, Est GFR (MDRD) Non-Af 24 L,BUN/Creatinine Ratio 15.6, Glucose 81, Calcium 8.4 L 03/31/23 21:45: Sodium 138, Potassium 6.5 H*, Chloride 117 H, Carbon Dioxide 18.0 L, Anion Gap 3 L, BUN 44 H, Creatinine 2.87 H, Estim Creat Clear Calc 30.66, Est GFR (MDRD) Af Amer 28 L, Est GFR (MDRD) Non-Af 24 L, BUN/Creatinine Ratio 15.3, Glucose 90, Calcium 8.6 04/01/23 00:10: POC Glucose 85 04/01/23 01:20: Hgb 9.2 L, Hct 30.8 L, Sodium 140, Potassium 5.7 H, Chloride 118H, Carbon Dioxide 19.0 L, Anion Gap 3 L, BUN 43 H, Creatinine 2.93 H, Estim Creat Clear Calc 30.04, Est GFR (MDRD) Af Amer 28 L, Est GFR (MDRD) Non-Af 23 L,BUN/Creatinine Ratio 14.7, Glucose 89, Calcium 9.5 04/01/23 03:29: Sodium 139, Potassium 5.6 H, Chloride 115 H, Carbon Dioxide 21.0, Anion Gap 3 L, BUN 41 H, Creatinine 2.74 H, Estim Creat Clear Calc 32.12, Est GFR (MDRD) Af Amer 30 L, Est GFR (MDRD) Non-Af 25 L, BUN/Creatinine Ratio 15.0, Glucose 94, Calcium 8.6 04/01/23 05:45: WBC 4.3 L, RBC 2.89 L, Hgb 9.4 L, Hct 30.9 L, MCV 106.9 H, MCH 32.5 H, MCHC 30.4 L D, RDW Std Deviation 69.8 H, RDW Coeff of Hugo 18.1 H, Plt Count 146 L, MPV 9.4, Immature Gran % (Auto) 0.200, Neut % (Auto) 61.0, Lymph % (Auto) 28.2, Chaves % (Auto) 8.7, Eos % (Auto) 1.2, Baso % (Auto) 0.7, Absolute Neuts (auto) 2.6, Absolute Lymphs (auto) 1.20, Nucleated RBC % 0, Anisocytosis 2+, Sodium 140, Potassium 5.5 H, Chloride 115 H, Carbon Dioxide 21.0, Anion Gap 4 L, BUN 39 H, Creatinine 2.70 H, Estim Creat Clear Calc 32.59, Est GFR (MDRD) Af Amer 31 L, Est GFR (MDRD) Non-Af 25 L, BUN/Creatinine Ratio 14.4, Glucose 90,Calcium 8.5, Total Bilirubin 0.40, AST 17, ALT 13 L, Alkaline Phosphatase 178 H,Total Protein 7.0, Albumin 2.8 L, Globulin 4.2, Albumin/Globulin Ratio 0.7 L Micro: Microbiology 03/31/23 21:15 Sputum, Expectorated/Coughed Gram Stain - Final 04/01/23 05:40 Mucosa - Nasopharyngeal Respiratory Panel (PCR) - Final 03/31/23 21:15 Urine, Random Legionella Antigen - Final 03/31/23 21:15 Urine, Random Streptococcus pneumoniae Antigen (M - Final 03/31/23 21:15 Stool Stool Occult Blood (PAWAN) - Final Occult Blood Positive 03/31/23 14:50 Mucosa - Nose SARS-CoV-2, Influenza & RSV (PCR) - Final Radiography Diagnostic Testing: Radiology Impression Chest X-Ray 03/31/23 13:26 IMPRESSION: Right lower lobe infiltrate and blunting of the right costophrenic angle. Electronically Signed: Yosvany Carlos MD at 14:49 EST , Liver Ultrasound 04/01/23 07:54 IMPRESSION: Heterogeneous appearance of the liver. Multiple small gallstones are seen in the gallbladder. Electronically Signed: Yosvany Carlos MD at 15:15 EST , Physical Exam Const alert, oriented x3, no apparent distress and average body habitus General Appearance: cooperative and comfortable HEENT normocephalic, head/scalp atraumatic, hearing grossly normal bilaterally, nasal mucous membranes and turbinates normal and moist oral mucous membranes Eyes PERRL, EOMs intact bilaterally and conjunctivae normal Neck full ROM, no lymphadenopathy and supple Lymph Lymphatic: no lymphadenopathy noted Chest inspection of chest normal Resp Resp Narrative: Mildly decreased breath sounds bilaterally, no wheezing or crackles noted. Cardio regular rate, regular rhythm, no murmurs and peripheral pulses 2+ throughout GI normal to inspection, nondistended, normoactive bowel sounds, soft to palpation,non-tender and non-distended Back/Spine normal ROM Extremity normal to inspection, full ROM and no pedal edema Skin no rashes or lesions noted Neuro no focal motor deficits and no sensory deficits noted Speech: speech normal Psych mental status grossly normal Assessment & Plan Assessment/Plan (1) Community acquired pneumonia: QUALIFIERS: Laterality: left Lung location: unspecified part of lung Qualified Code(s): J18.9 - Pneumonia, unspecified organism (2) IRINA (acute kidney injury): (3) Anemia: (4) Hyperkalemia: PLAN: Plan Patient is a 68-year-old male who presented to [facility] ED on 03/31/2023 with worsening shortness of breath with exertion. 1. Right lower lobe community-acquired pneumonia with unknown organism, with acute hypoxia Chest x-ray on admit showed right lower lobe infiltrate with blunting of right costophrenic angle concerning for pneumonia. Not hypoxia on room air to mid 80s, improved to low 90s on 2 L nasal cannula. WBC count normal, afebrile, hemodynamically stable, did not meet sepsis criteria. COVID/flu/RSV negative inED. Sputum culture with no growth to date. Urine antigens negative. Full respiratory PCR panel negative. ? Continue ceftriaxone and azithromycin for now. Will plan to de-escalate to p.o. antibiotics on discharge with plan for 7-day course of antibiotics total. Hopeful that patient will be able to be weaned off of supplemental oxygen prior to discharge. Will plan for home O2 eval prior to discharge. 2. Acute on chronic iron deficiency anemia, concern for upper GI bleed, mild thrombocytopenia Hemoglobin 8.9 on admit, MCV 109, platelets 146. Hemoglobin 9.5 on 03/25/23, but prior to that baseline hemoglobin appears to be around 12-13. Fecal occult stool positive in ED. Patient denied any dark or bloody bowel movements. Patient does have history of iron deficiency anemia secondary to previous gastric bypass surgery. Also has history of anastomotic ulcers back in 2018. ? GI following. Notably had multiple hemoglobin checks on 03/31 and 04/01 with stable hemoglobin around 9. Dr. Fay discussed with patient in 04/01, recommendation is for upper endoscopy but patient does not want to get an upper or lower endoscopy at this time. Liver ultrasound did not show evidence of underlying liver disease. GI recommending iron transfusions and outpatient capsule endoscopy, will discuss with them if patient should have iron transfusion done prior to discharge. 3. IRINA on CKD stage III, with acute hyperkalemia Creatinine 2.97, BUN 44, potassium 6.9 on admit. Baseline creatinine around 1.8- 2.2. 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 Follows with Dr. Ramirez outpatient. Hashistory of hyperkalemia, had been on Lokelma in the past but discontinued due tocost. Suspected that both IRINA and hyperkalemia are in part due to recently starting Bactrim for buttock abscess as noted below, as well as likely poor p.o.intake over the last several days. Treated with multiple doses of Kayexalate, insulin, calcium, D50 and bicarb drip on admission with improvement of potassiumto 5.5. ? Nephrology following. Bicarb drip discontinued. Renal diet with low potassium ordered. Creatinine 2.7 on 04/01 after IV fluids, continue to monitor urine output and BMP. Treating with IV antibiotics as noted above, hold on Bactrim going forward. Chronic medical conditions: ? Recent anaerobic cocci/gram-negative jaycee left buttock abscess: I&D in office with surgery on 03/25, cultures on 03/26 with gram-negative jaycee preliminary growth. Holding Bactrim as noted above, treating with IV ceftriaxone. ? Valvular heart disease with history of previous endocarditis: Previous aortic valve replacement as well as tricuspid valve repair. Most recent echo in howed EF 60%, moderate concentric LVH, no significant valve issues. Continue outpatient follow-up with cardiology. ? Paroxysmal A-fib: Holding home Eliquis for now, will plan to resume on discharge. ? History of CVA: Continue statin, holding Eliquis. ? History of sick sinus syndrome s/p pacemaker placement ? Hypertension, hyperlipidemia: Continue home statin, Coreg, amlodipine. ? Hypothyroidism: Continue home Synthroid. ? GERD: Continue home p.o. PPI twice daily. ? History of morbid obesity s/p gastric bypass surgery in 1995 DVT prophylaxis: SCDs CODE STATUS: Full code, verified Expected disposition: Home, 1 to 2 days Total clinical time spent by myself addressing the patient's medical issues, reviewing all the data, and collaborating with patient's care team: 35 minutes. Charges/Coding Visit Charges Inpatient E&M: 54001 Subs Hosp L2 04/01/23 2130 <Electronically signed by Larry Dunbar DO> Cosigner Signature (if applicable): CC: ~ Signed [facility] Work Phone: 1(501) 544-805901-10-2024 Consult note Author César Friend [facility] April 01, 2023 4:31pm Note Date/Time April 01, 2023 4 :31pm [facility] Medical Records Department [address] [place] [address] Consultation - GI 04/01/23 1625 MR#: [id number] Acct: [id number] Name: FRANK WHITE Rep #:[id number] : 1955 68 From: César Friend DO PCP: Dr. Gracy Shin, DO Status:ADM IN Location: [place] [address] HPI Consult Data Date of Consult: 04/01/23 HPI Narrative Reason for Consultation: Anemia HPI Narrative: FRANK WHITE, is a 68 with past medical history of morbid obesity of more than 500 pounds status post Jossy-en-Y gastric bypass back in 1995. [facility] with worsening of fatigue, shortness of breath andwas discovered to be hypoxic. 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 He also has a history ofSick Sinus Syndrome s/p pacemaker status, Hypothyroidism, Tobacco use who presents to the [facility] ED on 03/31/2023 with history of shortness of breath, lightheadedness and dizziness with recently noted anemiawith workup ongoing outpatient but given symptomatic prompted ED evaluation. He denies dark stools. He notes he had ulceration back in 2018. He is also noterecent mildly increased cough above his baseline over the last 2 weeks but nonproductive and his dyspnea is worse with exertion. He denies any recent upper respiratory type symptoms or fevers or chills. Workup in the ED included T98, heart rate 67, BP 151/89, respiratory rate 16, initially 94% on room air however desaturated to 88% on room air with improvement to 93% on 2 L nasal cannula, CBC with WBC 4.6, hemoglobin 8.9, MCV 109.6, platelet 179 without marked shift, BMP with potassium 6.9 not noted to behemolyzed, chloride 117, carbon oxide 20, BUN/creatinine 45/2.97, BNP 459.6, chest x-ray with preliminary review with evidence of right lower lobe pneumonia. I was asked to see him due to worsening iron deficiency anemia. [facility] Medical History (Updated 04/01/23 @ 16:[address] Lindsey Friend, DO) Abnormal EKG Abscess of left buttock Acute bronchitis, unspecified Acute CVA (cerebrovascular accident) (10/27/17) Acute stomach ulcer Anemia Anemia, iron deficiency Aortic stenosis Aortic valve endocarditis (~12/2017) Atherosclerotic heart disease of [place] coronary artery without angina pectoris Atrial fibrillation Atrioventricular block, type I Bruit of left carotid artery Cardiology follow-up encounter Carpal tunnel syndrome Edema of left lower extremity High cholesterol History of echocardiogram History of GI bleed History of stroke History of ulceration HTN (hypertension) Hyperlipidemia Hyperthyroidism Hypothyroidism ICD (implantable cardioverter-defibrillator) in place Kidney disease Kidney failure 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 ligation 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 of 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 Mild atherosclerosis of both carotid arteries Mitral valve insufficiency and aortic valve insufficiency Nonrheumatic tricuspid valve regurgitation Open wound Pacemaker PAF (paroxysmal atrial fibrillation) Premature ventricular contraction Presence of biventricular cardiac pacemaker Presence of permanent cardiac pacemaker (~01/19/18) Retinal embolus Sick sinus syndrome Sinus bradycardia Smoker SOB (shortness of breath) Stroke Thyroid disease TIA (transient ischemic attack) Tobacco abuse Ulcer Ventricular hypertrophy Vitamin deficiency Wears dentures Home Medications cyanocobalamin (vitamin B-12) 500 mcg tablet 500 mcg PO QDAY SUPPLEMENT 03/27/17[History Last Taken 03/31/23] acetaminophen 500 mg tablet 1,000 mg PO Q4H PRN Pain 10/27/17 [History Last Taken 03/30/23] pantoprazole 20 mg tablet,delayed release 40 mg PO BID 03/15/18 [History Last Taken 03/31/23] cholecalciferol (vitamin D3) 50 mcg (2,000 unit) tablet 2,000 unit PO DAILY 05/21/18 [History Last Taken 03/31/23] carvedilol 25 mg tablet 25 mg PO BID #180 tabs 05/15/22 [Rx Last Taken 03/31/23] dapagliflozin propanediol 10 mg tablet (Farxiga) 10 mg PO DAILY 11/25/22 [History Last Taken 03/31/23] atorvastatin 20 mg tablet 20 mg PO DAILY #90 tabs 02/06/23 [Rx Last Taken 03/30/23] amlodipine 5 mg tablet 5 mg PO DAILY #90 tabs 02/23/23 [Rx Last Taken 03/31/23] apixaban 5 mg tablet (Eliquis) 5 mg PO BID #180 tabs 03/10/23 [Rx Last Taken 03/31/23] sulfamethoxazole 800 mg-trimethoprim 160 mg tablet (Bactrim DS) 1 tab PO BID 10 days #20 tabs 03/26/23 [Rx Last Taken 03/31/23] levothyroxine 150 mcg tablet 150 mcg PO DAILY 03/31/23 [History Last Taken 03/31/23] Allergy/AdvReac Type Severity Reaction Status Date / Time Penicillins AdvReac Severe Hives Verified 03/31/23 12:00 Family History Father CAD (coronary artery disease) Mother CAD (coronary artery disease) Thyroid disorder Sister Thyroid cancer Grandmother Diabetes Grandfather Alcoholism Surgical History History of aortic valve replacement with bioprosthetic valve (~01/19/18) History of cardiac catheterization History of carpal tunnel surgery History of gastric bypass History of heart surgery (~2017) History of knee surgery History of tricuspid valve repair (~01/19/18) S/P aortic valve replacement Social History (Updated 03/31/23 @ 16:[address] Noemí Veal MD) Smoking Status: Current every day smoker tobacco type: cigars per week: 21 alcohol intake: current alcohol intake frequency: holidays/special occasions only substance use type: does not use caffeine: Yes Type: coffee what type of physical activity do you participate in: none seatbelt use: always do you feel safe at home: Yes ROS ROS Narrative Admission Review of Systems: CONSTITUTIONAL: No weight loss, fever, chills, + weakness or fatigue. HEENT: + Lightheaded. Eyes: No visual loss, blurred vision, double vision or yellow sclerae. Ears, Nose, Throat: No hearing loss, sneezing, congestion, runny nose or sore throat. SKIN: No rash or itching, lesions, wounds. CARDIOVASCULAR: No chest pain, chest pressure or chest discomfort, palpitations,edema, orthopnea, syncopal events. RESPIRATORY: + Shortness of breath, cough without marked sputum. No wheezing, hemoptysis. GASTROINTESTINAL: No anorexia, nausea, vomiting or diarrhea, abdominal pain, melena, BRBPR. GENITOURINARY: No dysuria, frequency, urgency or retention. NEUROLOGICAL: + Lightheadedness, dizziness. No headache, syncope, paralysis, ataxia, numbness or tingling in the extremities, new focal weakness, change in bowel or bladder control, seizure. MUSCULOSKELETAL: + muscle, back pain, joint pain or stiffness. HEMATOLOGIC: + anemia, no overt history of bleeding, easy bruising. LYMPHATICS: No enlarged nodes. No history of splenectomy. PSYCHIATRIC: No history of depression or anxiety. ENDOCRINOLOGIC: No reports of sweating, cold or heat intolerance. No polyuria orpolydipsia. ALLERGIES: + History of hives. Physical Exam Narrative Alert and orient x 3, no apparent distress S1, S2, RRR Lung sounds clear anteriorly, diminished breath sounds posterior bases. No rhonchi or rales Abdomen soft, nontender No pitting edema Lab / Micro Data 04/01/23 05:45 04/01/23 05:45 Labs: Laboratory Results - last 24 hr 03/31/23 13:45: Magnesium 2.5, Total Bilirubin 0.40, Direct Bilirubin 0.20, AST 17, ALT 13 L, Alkaline Phosphatase 190 H, Total Protein 7.3, Albumin 2.9 L, Globulin 4.4 H 03/31/23 16:40: Blood Type A POSITIVE, Antibody Screen NEGATIVE, Crossmatch See Detail 03/31/23 18:50: Hgb 8.7 L, Hct 29.3 L, Sodium 138, Potassium 6.1 H*, Chloride 117 H, Carbon Dioxide 20.0 L, Anion Gap 1 L, BUN 44 H, Creatinine 2.82 H, Estim Creat Clear Calc 31.21, Est GFR (MDRD) Af Amer 29 L, Est GFR (MDRD) Non-Af 24 L,BUN/Creatinine Ratio 15.6, Glucose 81, Calcium 8.4 L 03/31/23 21:45: Sodium 138, Potassium 6.5 H*, Chloride 117 H, Carbon Dioxide 18.0 L, Anion Gap 3 L, BUN 44 H, Creatinine 2.87 H, Estim Creat Clear Calc 30.66, Est GFR (MDRD) Af Amer 28 L, Est GFR (MDRD) Non-Af 24 L, BUN/Creatinine Ratio 15.3, Glucose 90, Calcium 8.6 04/01/23 00:10: POC Glucose 85 04/01/23 01:20: Hgb 9.2 L, Hct 30.8 L, Sodium 140, Potassium 5.7 H, Chloride 118H, Carbon Dioxide 19.0 L, Anion Gap 3 L, BUN 43 H, Creatinine 2.93 H, Estim Creat Clear Calc 30.04, Est GFR (MDRD) Af Amer 28 L, Est GFR (MDRD) Non-Af 23 L,BUN/Creatinine Ratio 14.7, Glucose 89, Calcium 9.5 04/01/23 03:29: Sodium 139, Potassium 5.6 H, Chloride 115 H, Carbon Dioxide 21.0, Anion Gap 3 L, BUN 41 H, Creatinine 2.74 H, Estim Creat Clear Calc 32.12, Est GFR (MDRD) Af Amer 30 L, Est GFR (MDRD) Non-Af 25 L, BUN/Creatinine Ratio 15.0, Glucose 94, Calcium 8.6 04/01/23 05:45: WBC 4.3 L, RBC 2.89 L, Hgb 9.4 L, Hct 30.9 L, MCV 106.9 H, MCH 32.5 H, MCHC 30.4 L D, RDW Std Deviation 69.8 H, RDW Coeff of Hugo 18.1 H, Plt Count 146 L, MPV 9.4, Immature Gran % (Auto) 0.200, Neut % (Auto) 61.0, Lymph % (Auto) 28.2, Chaves % (Auto) 8.7, Eos % (Auto) 1.2, Baso % (Auto) 0.7, Absolute Neuts (auto) 2.6, Absolute Lymphs (auto) 1.20, Nucleated RBC % 0, Anisocytosis 2+, Sodium 140, Potassium 5.5 H, Chloride 115 H, Carbon Dioxide 21.0, Anion Gap 4 L, BUN 39 H, Creatinine 2.70 H, Estim Creat Clear Calc 32.59, Est GFR (MDRD) Af Amer 31 L, Est GFR (MDRD) Non-Af 25 L, BUN/Creatinine Ratio 14.4, Glucose 90,Calcium 8.5, Total Bilirubin 0.40, AST 17, ALT 13 L, Alkaline Phosphatase 178 H,Total Protein 7.0, Albumin 2.8 L, Globulin 4.2, Albumin/Globulin Ratio 0.7 L Micro: Microbiology 03/31/23 21:15 Sputum, Expectorated/Coughed Gram Stain - Final 04/01/23 05:40 Mucosa - Nasopharyngeal Respiratory Panel (PCR) - Final 03/31/23 21:15 Urine, Random Legionella Antigen - Final 03/31/23 21:15 Urine, Random Streptococcus pneumoniae Antigen (M - Final 03/31/23 21:15 Stool Stool Occult Blood (PAWAN) - Final Occult Blood Positive 03/31/23 14:50 Mucosa - Nose SARS-CoV-2, Influenza & RSV (PCR) - Final Imagaing Radiology Impression Chest X-Ray 03/31/23 13:26 IMPRESSION: Right lower lobe infiltrate and blunting of the right costophrenic angle. Electronically Signed: Yosvany Carlos MD at 14:49 EST , Liver Ultrasound 04/01/23 07:54 IMPRESSION: Heterogeneous appearance of the liver. Multiple small gallstones are seen in the gallbladder. Electronically Signed: Yosvany Carlos MD at 15:15 EST , Assessment & Plan Assessment/Plan (1) Community acquired pneumonia: QUALIFIERS: Lung location: unspecified part of lung Laterality: left Qualified Code(s): J18.9 - Pneumonia, unspecified organism PLAN: Plan The patient is a 68 y/o morbid obesity status post Jossy-en-Y gastric bypass, GERD w/ Hx of anastomotic gastric and jejunal ulcer/GI bleed, Chronic anemia/Fe deficiency anemia, who presents to the [facility] ED on 03/31/2023 with history of shortness of breath, lightheadedness and dizziness with recently noted anemia with workup ongoing outpatient but given symptomatic prompted ED evaluation. He denies dark stools. Acute Symptomatic Anemia on Chronic/Fe deficiency anemia with concern possible GI bleed w/ previous history: Admission hemoglobin 8.9, previous to this 03/25/2023 hemoglobin 9.5 and prior to this 11/17/2022 hemoglobin 14.5 reportedly having this also worked up outpatient. He does have a history of anastomotic ulcers and I think he would benefit from an upper endoscopy. However he does not want to get an upper or lower endoscopyat this time. I told him that there is a possibility with his pancytopenia or bicytopenia that he may have some underlying liver disease that may be contributing to his symptoms. I told him that in the setting of iron deficiency anemia is not normal to have thrombocytopenia unless you have some type of splenic sequestration secondary tochronic liver disease or bone marrow issue. Therefore recommend iron transfusions and outpatient capsule endoscopy. Furtherrecommendation to follow that he has ultrasound of the right upper quadrant. Charges/Coding Visit Charges Inpatient E&M: 00916 Init Hosp L3 04/01/23 1631 <Electronically signed by César Friend > Cosigner Signature (if applicable): CC: Dr. Noemí Vela MD; Dr. Al Ramirez MD; Dr. Gracy Shin DO~ Signed [facility] Work Phone: [phone] 848-157901-09-2024 History and physical note Author [facility] March 31, 2023 4:32pm Note Date/Time March 31, 2023 3: 28pm [facility] Medical Records Department [address] [place] [address] H&P Exam - Hospitalist 03/31/23 1527 MR#: [id number] Acct: [id number] Name: FRANK WHITE Rep #:[id number] : 1955 68 From: Noemí Vela MD PCP: Dr. Gracy Shin, Status:REG ER Location: ED HPI - General General Date of Admission: 03/31/23 Date of Service: 03/31/23 Chief Complaint: Dyspnea. HPI Narrative The patient is a 68 y/o M w/ PMHx: CKD stage III unclear subtype based on GFT trending, Hx CVA, Hx retinal embolism, GERD w/ Hx gastric ulcer/GI bleed, Chronic anemia/Fe deficiency anemia, Valvular Heart Disease w/ Hx Aortic valve endocarditis s/p AVR bioprosthetic and TV repair, CAD, PAF, HTN, HLD, Hypothyroidism, Hx Sick Sinus Syndrome s/p pacemaker status, Hypothyroidism, Tobacco use who presents to the [facility] ED on 03/31/2023 with history of shortness of breath, lightheadedness and dizziness with recently noted anemia with workup ongoing outpatient but given symptomatic prompted ED evaluation. He denies dark stools. He notes he had ulceration back in 2018. He is also note recent mildly increased cough above his baseline over the last 2 weeks but nonproductive and his dyspnea is worse with exertion. He denies any recent upper respiratory typesymptoms or fevers or chills. Workup in the ED included T98, heart rate 67, BP 151/89, respiratory rate 16, initially 94% on room air however desaturated to 88% on room air with improvement to 93% on 2 L nasal cannula, CBC with WBC 4.6, hemoglobin 8.9, MCV 109.6, platelet 179 without marked shift, BMP with potassium6.9 not noted to be hemolyzed, chloride 117, carbon oxide 20, BUN/creatinine 45/2.97, BNP 459.6, chest x-ray with preliminary review with evidence of right lower lobe pneumonia however final read pending upon evaluation. EKG paced without acute findings with mild peak but similar to prior EKG. In the ED patient ministered dextrose, insulin 10 unit IV x 1, azithromycin 5 mg IV x 1, Rocephin 1 g IV x 1 as well as albuterol 10 mg inhalation x 1. [facility] Medical History Abnormal EKG Abscess of left buttock Acute bronchitis, unspecified Acute CVA (cerebrovascular accident) (10/27/17) Acute stomach ulcer Anemia Anemia, iron deficiency Aortic stenosis Aortic valve endocarditis (~12/2017) Atherosclerotic heart disease of [place] coronary artery without angina pectoris Atrial fibrillation Atrioventricular block, type I Bruit of left carotid artery Cardiology follow-up encounter Carpal tunnel syndrome Edema of left lower extremity High cholesterol History of echocardiogram History of GI bleed History of stroke History of ulceration HTN (hypertension) Hyperlipidemia Hypothyroidism Kidney disease Kidney failure 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 ligation Leg cramps [facility] current use of 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 Mild atherosclerosis of both carotid arteries Mitral valve insufficiency and aortic valve insufficiency Nonrheumatic tricuspid valve regurgitation Open wound PAF (paroxysmal atrial fibrillation) Premature ventricular contraction Presence of biventricular cardiac pacemaker Presence of permanent cardiac pacemaker (~01/19/18) Retinal embolus Sick sinus syndrome Sinus bradycardia Smoker SOB (shortness of breath) Stroke Thyroid disease Tobacco abuse Ulcer Ventricular hypertrophy Vitamin deficiency Wears dentures Home Medications cyanocobalamin (vitamin B-12) 500 mcg tablet 500 mcg PO QDAY SUPPLEMENT 03/27/17[History Last Taken 03/31/23] acetaminophen 500 mg tablet 1,000 mg PO Q4H PRN Pain 10/27/17 [History Last Taken 03/30/23] pantoprazole 20 mg tablet,delayed release 40 mg PO BID 03/15/18 [History Last Taken 03/31/23] cholecalciferol (vitamin D3) 50 mcg (2,000 unit) tablet 2,000 unit PO DAILY 05/21/18 [History Last Taken 03/31/23] carvedilol 25 mg tablet 25 mg PO BID #180 tabs 05/15/22 [Rx Last Taken 03/31/23] dapagliflozin propanediol 10 mg tablet (Farxiga) 10 mg PO DAILY 11/25/22 [History Last Taken 03/31/23] atorvastatin 20 mg tablet 20 mg PO DAILY #90 tabs 02/06/23 [Rx Last Taken 03/30/23] amlodipine 5 mg tablet 5 mg PO DAILY #90 tabs 02/23/23 [Rx Last Taken 03/31/23] apixaban 5 mg tablet (Eliquis) 5 mg PO BID #180 tabs 03/10/23 [Rx Last Taken 03/31/23] sulfamethoxazole 800 mg-trimethoprim 160 mg tablet (Bactrim DS) 1 tab PO BID 10 days #20 tabs 03/26/23 [Rx Last Taken 03/31/23] levothyroxine 150 mcg tablet 150 mcg PO DAILY 03/31/23 [History Last Taken 03/31/23] Allergy/AdvReac Type Severity Reaction Status Date / Time Penicillins AdvReac Severe Hives Verified 03/31/23 12:00 Family History Father CAD (coronary artery disease) Mother CAD (coronary artery disease) Thyroid disorder Sister Thyroid cancer Grandmother Diabetes Grandfather Alcoholism Surgical History History of aortic valve replacement with bioprosthetic valve (~01/19/18) History of cardiac catheterization History of carpal tunnel surgery History of gastric bypass History of heart surgery (~2018) History of knee surgery History of tricuspid valve repair (~01/19/18) S/P aortic valve replacement Social History (Updated 03/31/23 @ 16:[address] Noemí Vela MD) Smoking Status: Current every day smoker tobacco type: cigars per week: 21 alcohol intake: current alcohol intake frequency: holidays/special occasions only substance use type: does not use caffeine: Yes Type: coffee what type of physical activity do you participate in: none seatbelt use: always do you feel safe at home: Yes ROS ROS Narrative Admission Review of Systems: CONSTITUTIONAL: No weight loss, fever, chills, + weakness or fatigue. HEENT: + Lightheaded. Eyes: No visual loss, blurred vision, double vision or yellow sclerae. Ears, Nose, Throat: No hearing loss, sneezing, congestion, runny nose or sore throat. SKIN: No rash or itching, lesions, wounds. CARDIOVASCULAR: No chest pain, chest pressure or chest discomfort, palpitations,edema, orthopnea, syncopal events. RESPIRATORY: + Shortness of breath, cough without marked sputum. No wheezing, hemoptysis. GASTROINTESTINAL: No anorexia, nausea, vomiting or diarrhea, abdominal pain, melena, BRBPR. GENITOURINARY: No dysuria, frequency, urgency or retention. NEUROLOGICAL: + Lightheadedness, dizziness. No headache, syncope, paralysis, ataxia, numbness or tingling in the extremities, new focal weakness, change in bowel or bladder control, seizure. MUSCULOSKELETAL: + muscle, back pain, joint pain or stiffness. HEMATOLOGIC: + anemia, no overt history of bleeding, easy bruising. LYMPHATICS: No enlarged nodes. No history of splenectomy. PSYCHIATRIC: No history of depression or anxiety. ENDOCRINOLOGIC: No reports of sweating, cold or heat intolerance. No polyuria orpolydipsia. ALLERGIES: + History of hives. Vital Signs Vital Signs Vital Signs: 03/31/23 12:00 03/31/23 13:08 03/31/23 13:09 Temperature 98 F Temperature Source Temporal Pulse Rate 67 65 Respiratory Rate 16 20 H Respiratory Effort Normal Non-Labored Respiratory Depth Normal Respiratory Pattern Normal Blood Pressure 151/89 H 153/89 H Blood Pressure Mean 109 110 Pulse Ox 94 88 Oxygen Delivery Method Room Air Room Air Room Air Oxygen Flow Rate (L/min) 03/31/23 13:10 03/31/23 14:38 03/31/23 14:38 Temperature Temperature Source Pulse Rate 63 Respiratory Rate 17 Respiratory Effort Respiratory Depth Respiratory Pattern Normal Blood Pressure Blood Pressure Mean Pulse Ox 93 93 Oxygen Delivery Method Nasal Cannula Nasal Cannula Oxygen Flow Rate (L/min) 2 2 Weight Weight: 216 lb 0.848 oz Body Mass Index (BMI) 26.3 Physical Exam Narrative Physical Examination: General: Awake, alert, oriented x 3 and cooperative, seated upright in the ED bed in no apparent distress, fatigued appearing. Skin: Normal color, normal turgor, no icterus, no cyanosis except occasional staged ecchymoses, recent left buttock I&D, resolving. HEENT: AT/NC, EOMI, PERRLA, mildly dry MM, no carotid bruits or JVD noted. Lungs: Diminished, greater bases, bilaterally coarse, right greater than left, worse base, no evidence of any distress, no current wheezing. Heart: Regular rate and rhythm; no gallop, rub audible, + SM. Abdomen: Soft, NTTP, ND, mildly hyperactive BS, no HSM. Extremities: No cyanosis, clubbing, or edema. Neurological: Patient awake, alert, oriented as noted, cognitive function intact; pupils equally reactive to light and accommodation, cranial nerves grossly normal, moving all 4 extremities, strength severely globally decreased secondary to acute presentation and underlying comorbidities. Psychiatric: Affect appears flat, fatigued, ill-appearing, no acute evidence of depressive or anxiety feelings. Results Lab / Micro Data 03/31/23 13:45 03/31/23 13:45 Labs: Laboratory Results - last 24 hr 03/31/23 13:45: WBC 4.6, RBC 2.81 L, Hgb 8.9 L, Hct 30.8 L, MCV 109.6 H, MCH 31.7, MCHC 28.9 L, RDW Std Deviation 67.3 H, RDW Coeff of Hugo 17.0 H, Plt Count 179, MPV 9.5, Immature Gran % (Auto) 0.200, Neut % (Auto) 68.8, Lymph % (Auto) 19.2, Chaves % (Auto) 9.7, Eos % (Auto) 1.7, Baso % (Auto) 0.4, Absolute Neuts (auto) 3.2, Absolute Lymphs (auto) 0.89, Nucleated RBC % 0, Differential CommentSCANNED, Anisocytosis 2+, Microcytosis 1+, Macrocytosis 1+, Sodium 138, Potassium 6.9 H*, Chloride 117 H, Carbon Dioxide 20.0 L, Anion Gap 1 L, BUN 45 H, Creatinine 2.97 H, Estim Creat Clear Calc 29.63, Est GFR (MDRD) Af Amer 27 L, Est GFR (MDRD) Non-Af 23 L, BUN/Creatinine Ratio 15.2, Glucose 84, Calcium 8.8, B-Natriuretic Peptide 459.6 H Assessment & Plan Assessment/Plan (1) Community acquired pneumonia: PLAN: Plan The patient is a 68 y/o M w/ PMHx: CKD stage III unclear subtype based on GFT trending, Hx CVA, Hx retinal embolism, GERD w/ Hx gastric ulcer/GI bleed, Chronic anemia/Fe deficiency anemia, Valvular Heart Disease w/ Hx Aortic valve endocarditis s/p AVR bioprosthetic and TV repair, CAD, PAF, HTN, HLD, Hypothyroidism, Hx Sick Sinus Syndrome s/p pacemaker status, Hypothyroidism, Tobacco use who presents to the [facility] ED on 03/31/2023 with history of shortness of breath, lightheadedness and dizziness with recently noted anemia with workup ongoing outpatient but given symptomatic prompted ED evaluation. He denies dark stools. #1. Acute hypoxia secondary to RLL Pneumonia: CXR in the ED w/ concern for right lower lobe pneumonia. Will maintain on oxygen with wean as tolerated to room air, continue ATC budesonide, PRN albuterol, maintained on IV Rocephin and Azithromycin, HOB, IS parameters w/ pending sputum cultures, full respiratory viral panel and urine antigens. #2. Acute Symptomatic Anemia on Chronic/Fe deficiency anemia with concern possible GI bleed w/ previous history: Admission hemoglobin 8.9, previous to this 03/25/2023 hemoglobin 9.5 and prior to this 11/17/2022 hemoglobin 14.5 reportedly having this also worked up outpatient, will maintain on IVFs, will obtain serial H+H, given symptomatic presentation will initiate type and cross and administer 1 unit PRBC, allow clears only at this time with n.p.o. status after midnight, maintain on IV PPI, guaiac requested, holding 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 therapy. If + guiac would plan to involve gastroenterology to be cautious. #3. Acute kidney injury on CKD stage III unclear subtype based on GFT trending:Secondary to possible medication as well as acute presumed blood loss anemia with possible transient hypoperfusion. Admission BUN/Cr 45/2.97, prior baseline creatinine noted to be primarily 1.8-2.0 however does appear to have vacillated,most recent prior 11/17/2022 creatinine 1.97. Will hydrate, hold nephrotoxic medications and repeat chemistry in AM. If no improvement would plan FeNa assessment. If worsening, low threshold to involve Nephrology. Given bactrim suspected partially mediated hepatic profile ordered also. #4. Acute hyperkalemia: Patient with recent DS Bactrim for left buttock abscessstarted on 03/26/2023 suspected likely at least partial etiology for hyperkalemia which will be stopped. Admission potassium 6.9, no evidence of hemolysis noted on lab review, as noted initiated in the ED on hyperkalemic treatment, will maintain on telemetry monitoring, administer Kayexalate dose x 1 now, continue to cycle BMP closely and if remains elevated will redose with albuterol, insulinwith dextrose, calcium gluconate, IV fluids and repeat dose of Kayexalate if necessary. Given bactrim suspected partially mediated hepatic profile ordered also. #5. Recent anaerobic cocci/gram-negative jaycee left buttock abscess: Patient withsurgery visit evaluation 04/15 noted in the system, history of previous abscesses in that region with onset 03/25/2023 clear/yellow drainage with no feverwith I&D performed in the office with cavity packed with 1/2 inch iodoform packing with pressure dressing with gauze and ABD padding with recommended packing removal today following and continued sitz bath's, dressings until drainage stops and Bactrim double strength regimen twice daily for 10 days. 03/26/2023 cultures with no growth aerobically however anaerobic culture notes anaerobic cocci and gram-negative jaycee preliminary growth with further studies reported to follow. Bactrim therapy is likely at least a partial etiology for patient's acute kidney injury as well as hyperkalemia given no other changes noted. Will continue dressing changes, wound RN consultation, stop Bactrim and at this time will transition to IV Rocephin in interim given concurrent concern for pneumonia. #6. Valvular heart disease with history of previous endocarditis: Patient status post previous AV replacement with endocarditis history as noted, also status post TV repair, most recent echocardiogram noted 11/20/2020 with normal LVsystolic function, EF 60%, moderate concentric LVH, LA moderately enlarged, RA mildly enlarged, mild MVI, status post TV repair evident, mild transvalvular insufficiency of the tricuspid valve, aortic valve not well-visualized however upon 3D imaging assessment appears to have stable bioprosthetic AV apparatus in place, mild transvalvular insufficiency of the aortic valve, transmitral diastolic flow velocities suggestive of diastolic dysfunction. Encouraged continued outpatient follow-up with cardiology. #7. PAF: As noted given presentation we will temporally hold apixaban regimen pending further evaluation, hypertensive regimen however given recent history ofsymptomatic anemia low threshold to hold if needed. #8. History CVA: Given presentation as noted holding apixaban, will continue Coreg regimen however given history of symptomatic anemia low threshold to temporally hold if needed. #9. History sick sinus syndrome: Status post pacemaker status, encourage continued outpatient follow-up with cardiology. #10. Hypertension: Will cautiously continue patient home amlodipine as well as Coreg but given symptomatic anemia will obtain orthostatics and low threshold tohold, IV hydralazine if needed. #11. Hyperlipidemia: We will continue patient on statin therapy. #12. Tobacco Abuse: Encouraged cessation, inpatient consultation per RT, NR if desired. #13. Hypothyroidism: We will continue patient on levothyroxine regimen. #14. GERD w/ prior GI bleed component as noted above: As noted will maintain onIV PPI. #15. DVT prophylaxis: SCDs, temporarily holding eliquis as noted given unclear etiology for anemia. #16. CODE status: Patient KELLI is his Sister Clifford and living will is currently in place. Discussed CODE status at length including difference between FULL code, DNR-CCA and DNR-CC status. Following discussions about the differences in these status, requested Full Code status. Advanced Care Planning Face to Face Time: 16 minutes. Charges/Coding Visit Charges Inpatient E&M: 45442 Init Hosp L3 Procedures Hospitalists Procedures: 20489 Advncd Care Plan 30 Min 03/31/23 1632 <Electronically signed by Noemí Vela MD> Cosigner Signature (if applicable): CC: Dr. Noemí Vela MD; Dr. Gracy Shin DO~ Signed [facility] Work Phone: [phone]) 378-213501-09-2024 Discharge summary Author Johann Boss [facility] March 31, 2023 4:02pm Note Date/Time March 31, 2023 3: 25pm [facility] Medical Records Department [address] [place] [address] Emergency Department Summary 03/31/23 MR#: [id number] Acct: [id number] Name: FRANK WHITE Rep #:[id number] : 1955 68 From: Johann Hill PCP: Dr. Gracy Shin DO Status:REG ER Location: ED HPI History of Present Illness Chief Complaint: Shortness of Breath Informant: patient Narrative Narrative: 2-week history of cough. Denies fevers. Denies myalgias. Reporting exertionaldyspnea. No chest pains. He is on Eliquis for history of paroxysmal A-fib witha pacemaker. Denies vomiting diarrhea or any urinary symptoms. Decreased oral intake. Reports that concerns of worsening anemia. History anemia recent bloodcount of 9. He is required blood transfusions however it has been years ago. He is previously given iron infusions. 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 History of gastric ulcers in the past. Denies rectal bleeding with black tarry stools or any bloody stools. Denies abdominal pain. Denies any chest pains or chest tightness. He has been taking his Eliquis. He states 2018 was on temporary dialysis stills follows nephrology Dr. Rogers. Prior similar symptoms: Yes [facility] Medical History Abnormal EKG Abscess of left buttock Acute bronchitis, unspecified Acute CVA (cerebrovascular accident) (10/27/17) Acute stomach ulcer Anemia Anemia, iron deficiency Aortic stenosis Aortic valve endocarditis (~12/2017) Atherosclerotic heart disease of [place] coronary artery without angina pectoris Atrial fibrillation Atrioventricular block, type I Bruit of left carotid artery Cardiology follow-up encounter Carpal tunnel syndrome Edema of left lower extremity High cholesterol History of echocardiogram History of GI bleed History of stroke History of ulceration HTN (hypertension) Hyperlipidemia Hypothyroidism Kidney disease Kidney failure 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 ligation Leg cramps [facility] current use of 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 Mild atherosclerosis of both carotid arteries Mitral valve insufficiency and aortic valve insufficiency Nonrheumatic tricuspid valve regurgitation Open wound PAF (paroxysmal atrial fibrillation) Premature ventricular contraction Presence of biventricular cardiac pacemaker Presence of permanent cardiac pacemaker (~01/19/18) Retinal embolus Sick sinus syndrome Sinus bradycardia Smoker SOB (shortness of breath) Stroke Thyroid disease Tobacco abuse Ulcer Ventricular hypertrophy Vitamin deficiency Wears dentures Home Medications cyanocobalamin (vitamin B-12) 500 mcg tablet 500 mcg PO QDAY SUPPLEMENT 03/27/17[History Last Taken 03/31/23] acetaminophen 500 mg tablet 1,000 mg PO Q4H PRN Pain 10/27/17 [History Last Taken 03/30/23] pantoprazole 20 mg tablet,delayed release 40 mg PO BID 03/15/18 [History Last Taken 03/31/23] cholecalciferol (vitamin D3) 50 mcg (2,000 unit) tablet 2,000 unit PO DAILY 05/21/18 [History Last Taken 03/31/23] carvedilol 25 mg tablet 25 mg PO BID #180 tabs 05/15/22 [Rx Last Taken 03/31/23] dapagliflozin propanediol 10 mg tablet (Farxiga) 10 mg PO DAILY 11/25/22 [History Last Taken 03/31/23] atorvastatin 20 mg tablet 20 mg PO DAILY #90 tabs 02/06/23 [Rx Last Taken 03/30/23] amlodipine 5 mg tablet 5 mg PO DAILY #90 tabs 02/23/23 [Rx Last Taken 03/31/23] apixaban 5 mg tablet (Eliquis) 5 mg PO BID #180 tabs 03/10/23 [Rx Last Taken 03/31/23] sulfamethoxazole 800 mg-trimethoprim 160 mg tablet (Bactrim DS) 1 tab PO BID 10 days #20 tabs 03/26/23 [Rx Last Taken 03/31/23] levothyroxine 150 mcg tablet 150 mcg PO DAILY 03/31/23 [History Last Taken 03/31/23] Allergy/AdvReac Type Severity Reaction Status Date / Time Penicillins AdvReac Severe Hives Verified 03/31/23 12:00 Family History Father CAD (coronary artery disease) Mother CAD (coronary artery disease) Thyroid disorder Sister Thyroid cancer Grandmother Diabetes Grandfather Alcoholism Surgical History History of aortic valve replacement with bioprosthetic valve (~01/19/18) History of cardiac catheterization History of carpal tunnel surgery History of gastric bypass History of heart surgery (~2017) History of knee surgery History of tricuspid valve repair (~01/19/18) S/P aortic valve replacement Social History Smoking Status: Current every day smoker tobacco type: cigars how long ago did patient quit smokin04/23/2017 alcohol intake: current alcohol intake frequency: a few times a month Alcohol type: hard liquor substance use type: does not use caffeine: Yes Type: coffee what type of physical activity do you participate in: none seatbelt use: always do you feel safe at home: Yes ROS ROS ED Constitutional Constitutional ED: Denies chills, fever(s) or sweats Eyes Eyes: Denies change in vision ENT ENT ED: Denies dysphagia or sore throat Cardiovascular Cardiovascular: Denies chest pain, leg edema, palpitations or racing heartbeat Respiratory/Chest Respiratory/Chest: Reports cough, dyspnea and dyspnea on exertion Gastrointestinal Gastrointestinal: Denies abdominal pain, diarrhea, nausea or vomiting Genitourinary Genitourinary ED: Denies dysuria, hematuria or urinary frequency Musculoskeletal Musculoskeletal: Denies back pain, extremity pain or neck pain Integumentary Denies rash or wounds Neurologic Neurologic: Denies headache(s), paresthesias or weakness EXAM Physical Exam Narrative Exam Narrative: Interventions / MDM: Differential diagnosis: Pneumonia, viral syndrome, electrolyte abnormalities Diagnosis considered but do not suspect: Pulmonary embolus however is chronic anticoagulation. My EKG interpretation: Paced rhythm rate of 62, no ST or T wave changes. Imaging independently reviewed and interpreted by myself: 2 view chest x-ray: Right lower lobe pneumonia. No effusions. External documents reviewed: N/A Test considered but not ordered:N/A ED course: Patient on currently 2 L nasal cannula with pulse ox noted 88% per nursing. He is in no respiratory distress. Laboratory studies obtained, chest x- ray ordered, COVID influenza ordered. No wheezing. White count zero 4.6 hemoglobin 8.9 down from 9.5 recently. Creatinine returned2.97 up from 1.97, potassium 6.9. No EKG changes. Nonhemolyzed. He is treatedwith aerosol treatments along with insulin glucose to shift the potassium. He states reported elevated potassium a year ago he is followed by nephrology Dr. Rogers states has used Lokelma in the past. Chest x-ray consistent with right lower lobe infiltrative findings. Currently SIRS criteria for 0 out of 4. Doesnot meet any sepsis criteria at this time. Covered with Rocephin and Zithromax antibiotics. I spoke with hospitalist Dr. Vela for admission to PCU. Re-evaluation: stable Disposition discussed with patient/family/significant other: Patient Case discussed with consulting clinician: Hospitalist This note was generated with [employer] dictation software. It may contain incorrectwords, spelling, and punctuation that were not noted in checking the note beforesigning. Const Vital Signs: 03/31/23 12:00 03/31/23 13:08 03/31/23 13:09 Temperature 98 F Temperature Source Temporal Pulse Rate 67 65 Respiratory Rate 16 20 H Respiratory Effort Normal Non-Labored Respiratory Depth Normal Respiratory Pattern Normal Blood Pressure 151/89 H 153/89 H Blood Pressure Mean 109 110 Pulse Ox 94 88 Oxygen Delivery Method Room Air Room Air Room Air Oxygen Flow Rate (L/min) 03/31/23 13:10 03/31/23 14:38 03/31/23 14:38 Temperature Temperature Source Pulse Rate 63 Respiratory Rate 17 Respiratory Effort Respiratory Depth Respiratory Pattern Normal Blood Pressure Blood Pressure Mean Pulse Ox 93 93 Oxygen Delivery Method Nasal Cannula Nasal Cannula Oxygen Flow Rate (L/min) 2 2 03/31/23 15:50 Temperature Temperature Source Pulse Rate 68 Respiratory Rate 12 Respiratory Effort Respiratory Depth Respiratory Pattern Blood Pressure 136/77 H Blood Pressure Mean 96 Pulse Ox 92 Oxygen Delivery Method Nasal Cannula Oxygen Flow Rate (L/min) 3 Positive well nourished and well developed Constitutional Narrative: 2 L nasal cannula no respiratory distress General Appearance ED: well developed and NAD HEENT Reports moist mucous membranes normocephalic and atraumatic Eyes PERRL, EOMs intact bilaterally and conjunctivae normal Eyes Narrative: No pallor of conjunctiva. General Eye ED: Yes normal appearance of both eyes Neck no lymphadenopathy and supple General: Negative for tenderness Chest Wall Chest: Negative for tenderness Resp normal respiratory effort and normal air movement Effort and Inspection: symmetric chest movement; Negative for respiratory distress Cardio regular rate, regular rhythm and no murmurs Peripheral Pulses: pulses 2+ throughout GI normal to inspection, nondistended, normoactive bowel sounds and non-tender Palpation: Negative for guarding or rebound tenderness present Back/Spine no CVA tenderness and no thoracic nor lumbar tenderness Extremity normal to inspection General Extremety ED: Negative for edema or tenderness General Extremity: Negative for edema Neuro oriented x3 and no sensory deficits noted Sensorium / Orientation: awake and alert Skin no rashes or lesions noted and no wounds MDM MDM Lab Data Labs: Laboratory Results - last 24 hr 03/31/23 13:45 WBC 4.6 RBC 2.81 L Hgb 8.9 L Hct 30.8 L MCV 109.6 H MCH 31.7 MCHC 28.9 L RDW Std Deviation 67.3 H RDW Coeff of Hugo 17.0 H Plt Count 179 MPV 9.5 Immature Gran % (Auto) 0.200 Neut % (Auto) 68.8 Lymph % (Auto) 19.2 Chaves % (Auto) 9.7 Eos % (Auto) 1.7 Baso % (Auto) 0.4 Absolute Neuts (auto) 3.2 Absolute Lymphs (auto) 0.89 Nucleated RBC % 0 Differential Comment SCANNED Anisocytosis 2+ Microcytosis 1+ Macrocytosis 1+ Sodium 138 Potassium 6.9 H* Chloride 117 H Carbon Dioxide 20.0 L Anion Gap 1 L BUN 45 H Creatinine 2.97 H Estim Creat Clear Calc 29.63 Est GFR (MDRD) Af Amer 27 L Est GFR (MDRD) Non-Af 23 L BUN/Creatinine Ratio 15.2 Glucose 84 Calcium 8.8 B-Natriuretic Peptide 459.6 H Discharge Plan Dx/Rx/DC Orders Clinical Impression: IRINA (acute kidney injury), 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 current use of 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, Community acquired pneumonia, Hypoxia, Hyperkalemia, Anemia Disposition Disposition: Acute Care Hospital [facility] What to do if you have Problems For any increased pain, shortness of breath, bleeding, nausea or vomiting, chestpain, or any unexpected problems, contact your Primary Care Provider. Call [facility] ([phone]) or report to the closest Emergency Room. Call 911 if necessary. 03/31/23 1602 <Electronically signed by Johann Hill> Cosigner Signature (if applicable): CC: Dr. Gracy Shin DO ~ Signed [facility] Work Phone: [phone] 964-541701-09-2024 History and physical note Author Noemí Vela [facility] March 31, 2023 4:32pm Note Date/Time March 31, 2023 3: 28pm [facility] Medical Records Department [address] [place] [address] H&P Exam - Hospitalist 03/31/23 1527 MR#: [id number] Acct: [id number] Name: FRANK WHITE Rep #:[id number] : 1955 68 From: Noemí Vela MD PCP: Dr. Gracy Shin DO Status:REG ER Location: ED HPI - General General Date of Admission: 03/31/23 Date of Service: 03/31/23 Chief Complaint: Dyspnea. HPI Narrative The patient is a 68 y/o M w/ PMHx: CKD stage III unclear subtype based on GFT trending, Hx CVA, Hx retinal embolism, GERD w/ Hx gastric ulcer/GI bleed, Chronic anemia/Fe deficiency anemia, Valvular Heart Disease w/ Hx Aortic valve endocarditis s/p AVR bioprosthetic and TV repair, CAD, PAF, HTN, HLD, Hypothyroidism, Hx Sick Sinus Syndrome s/p pacemaker status, Hypothyroidism, Tobacco use who presents to the [facility] ED on 03/31/2023 with history of shortness of breath, lightheadedness and dizziness with recently noted anemia with workup ongoing outpatient but given symptomatic prompted ED evaluation. He denies dark stools. He notes he had ulceration back in 2018. He is also note recent mildly increased cough above his baseline over the last 2 weeks but nonproductive and his dyspnea is worse with exertion. He denies any recent upper respiratory typesymptoms or fevers or chills. Workup in the ED included T98, heart rate 67, BP 151/89, respiratory rate 16, initially 94% on room air however desaturated to 88% on room air with improvement to 93% on 2 L nasal cannula, CBC with WBC 4.6, hemoglobin 8.9, MCV 109.6, platelet 179 without marked shift, BMP with potassium6.9 not noted to be hemolyzed, chloride 117, carbon oxide 20, BUN/creatinine 45/2.97, BNP 459.6, chest x-ray with preliminary review with evidence of right lower lobe pneumonia however final read pending upon evaluation. EKG paced without acute findings with mild peak but similar to prior EKG. In the ED patient ministered dextrose, insulin 10 unit IV x 1, azithromycin 5 mg IV x 1, Rocephin 1 g IV x 1 as well as albuterol 10 mg inhalation x 1. [facility] Medical History Abnormal EKG Abscess of left buttock Acute bronchitis, unspecified Acute CVA (cerebrovascular accident) (10/27/17) Acute stomach ulcer Anemia Anemia, iron deficiency Aortic stenosis Aortic valve endocarditis (~12/2017) Atherosclerotic heart disease of [place] coronary artery without angina pectoris Atrial fibrillation Atrioventricular block, type I Bruit of left carotid artery Cardiology follow-up encounter Carpal tunnel syndrome Edema of left lower extremity High cholesterol History of echocardiogram History of GI bleed History of stroke History of ulceration HTN (hypertension) Hyperlipidemia Hypothyroidism Kidney disease Kidney failure 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 ligation 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 of 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 Mild atherosclerosis of both carotid arteries Mitral valve insufficiency and aortic valve insufficiency Nonrheumatic tricuspid valve regurgitation Open wound PAF (paroxysmal atrial fibrillation) Premature ventricular contraction Presence of biventricular cardiac pacemaker Presence of permanent cardiac pacemaker (~01/19/18) Retinal embolus Sick sinus syndrome Sinus bradycardia Smoker SOB (shortness of breath) Stroke Thyroid disease Tobacco abuse Ulcer Ventricular hypertrophy Vitamin deficiency Wears dentures Home Medications cyanocobalamin (vitamin B-12) 500 mcg tablet 500 mcg PO QDAY SUPPLEMENT 03/27/17[History Last Taken 03/31/23] acetaminophen 500 mg tablet 1,000 mg PO Q4H PRN Pain 10/27/17 [History Last Taken 03/30/23] pantoprazole 20 mg tablet,delayed release 40 mg PO BID 03/15/18 [History Last Taken 03/31/23] cholecalciferol (vitamin D3) 50 mcg (2,000 unit) tablet 2,000 unit PO DAILY 05/21/18 [History Last Taken 03/31/23] carvedilol 25 mg tablet 25 mg PO BID #180 tabs 05/15/22 [Rx Last Taken 03/31/23] dapagliflozin propanediol 10 mg tablet (Farxiga) 10 mg PO DAILY 11/25/22 [History Last Taken 03/31/23] atorvastatin 20 mg tablet 20 mg PO DAILY #90 tabs 02/06/23 [Rx Last Taken 03/30/23] amlodipine 5 mg tablet 5 mg PO DAILY #90 tabs 02/23/23 [Rx Last Taken 03/31/23] apixaban 5 mg tablet (Eliquis) 5 mg PO BID #180 tabs 03/10/23 [Rx Last Taken 03/31/23] sulfamethoxazole 800 mg-trimethoprim 160 mg tablet (Bactrim DS) 1 tab PO BID 10 days #20 tabs 03/26/23 [Rx Last Taken 03/31/23] levothyroxine 150 mcg tablet 150 mcg PO DAILY 03/31/23 [History Last Taken 03/31/23] Allergy/AdvReac Type Severity Reaction Status Date / Time Penicillins AdvReac Severe Hives Verified 03/31/23 12:00 Family History Father CAD (coronary artery disease) Mother CAD (coronary artery disease) Thyroid disorder Sister Thyroid cancer Grandmother Diabetes Grandfather Alcoholism Surgical History History of aortic valve replacement with bioprosthetic valve (~01/19/18) History of cardiac catheterization History of carpal tunnel surgery History of gastric bypass History of heart surgery (~2017) History of knee surgery History of tricuspid valve repair (~01/19/18) S/P aortic valve replacement Social History (Updated 03/31/23 @ 16:[address] Noemí Vela MD) Smoking Status: Current every day smoker tobacco type: cigars per week: 21 alcohol intake: current alcohol intake frequency: holidays/special occasions only substance use type: does not use caffeine: Yes Type: coffee what type of physical activity do you participate in: none seatbelt use: always do you feel safe at home: Yes ROS ROS Narrative Admission Review of Systems: CONSTITUTIONAL: No weight loss, fever, chills, + weakness or fatigue. HEENT: + Lightheaded. Eyes: No visual loss, blurred vision, double vision or yellow sclerae. Ears, Nose, Throat: No hearing loss, sneezing, congestion, runny nose or sore throat. SKIN: No rash or itching, lesions, wounds. CARDIOVASCULAR: No chest pain, chest pressure or chest discomfort, palpitations,edema, orthopnea, syncopal events. RESPIRATORY: + Shortness of breath, cough without marked sputum. No wheezing, hemoptysis. GASTROINTESTINAL: No anorexia, nausea, vomiting or diarrhea, abdominal pain, melena, BRBPR. GENITOURINARY: No dysuria, frequency, urgency or retention. NEUROLOGICAL: + Lightheadedness, dizziness. No headache, syncope, paralysis, ataxia, numbness or tingling in the extremities, new focal weakness, change in bowel or bladder control, seizure. MUSCULOSKELETAL: + muscle, back pain, joint pain or stiffness. HEMATOLOGIC: + anemia, no overt history of bleeding, easy bruising. LYMPHATICS: No enlarged nodes. No history of splenectomy. PSYCHIATRIC: No history of depression or anxiety. ENDOCRINOLOGIC: No reports of sweating, cold or heat intolerance. No polyuria orpolydipsia. ALLERGIES: + History of hives. Vital Signs Vital Signs Vital Signs: 03/31/23 12:00 03/31/23 13:08 03/31/23 13:09 Temperature 98 F Temperature Source Temporal Pulse Rate 67 65 Respiratory Rate 16 20 H Respiratory Effort Normal Non-Labored Respiratory Depth Normal Respiratory Pattern Normal Blood Pressure 151/89 H 153/89 H Blood Pressure Mean 109 110 Pulse Ox 94 88 Oxygen Delivery Method Room Air Room Air Room Air Oxygen Flow Rate (L/min) 03/31/23 13:10 03/31/23 14:38 03/31/23 14:38 Temperature Temperature Source Pulse Rate 63 Respiratory Rate 17 Respiratory Effort Respiratory Depth Respiratory Pattern Normal Blood Pressure Blood Pressure Mean Pulse Ox 93 93 Oxygen Delivery Method Nasal Cannula Nasal Cannula Oxygen Flow Rate (L/min) 2 2 Weight Weight: 216 lb 0.848 oz Body Mass Index (BMI) 26.3 Physical Exam Narrative Physical Examination: General: Awake, alert, oriented x 3 and cooperative, seated upright in the ED bed in no apparent distress, fatigued appearing. Skin: Normal color, normal turgor, no icterus, no cyanosis except occasional staged ecchymoses, recent left buttock I&D, resolving. HEENT: AT/NC, EOMI, PERRLA, mildly dry MM, no carotid bruits or JVD noted. Lungs: Diminished, greater bases, bilaterally coarse, right greater than left, worse base, no evidence of any distress, no current wheezing. Heart: Regular rate and rhythm; no gallop, rub audible, + SM. Abdomen: Soft, NTTP, ND, mildly hyperactive BS, no HSM. Extremities: No cyanosis, clubbing, or edema. Neurological: Patient awake, alert, oriented as noted, cognitive function intact; pupils equally reactive to light and accommodation, cranial nerves grossly normal, moving all 4 extremities, strength severely globally decreased secondary to acute presentation and underlying comorbidities. Psychiatric: Affect appears flat, fatigued, ill-appearing, no acute evidence of depressive or anxiety feelings. Results Lab / Micro Data 03/31/23 13:45 03/31/23 13:45 Labs: Laboratory Results - last 24 hr 03/31/23 13:45: WBC 4.6, RBC 2.81 L, Hgb 8.9 L, Hct 30.8 L, MCV 109.6 H, MCH 31.7, MCHC 28.9 L, RDW Std Deviation 67.3 H, RDW Coeff of Hugo 17.0 H, Plt Count 179, MPV 9.5, Immature Gran % (Auto) 0.200, Neut % (Auto) 68.8, Lymph % (Auto) 19.2, Chaves % (Auto) 9.7, Eos % (Auto) 1.7, Baso % (Auto) 0.4, Absolute Neuts (auto) 3.2, Absolute Lymphs (auto) 0.89, Nucleated RBC % 0, Differential CommentSCANNED, Anisocytosis 2+, Microcytosis 1+, Macrocytosis 1+, Sodium 138, Potassium 6.9 H*, Chloride 117 H, Carbon Dioxide 20.0 L, Anion Gap 1 L, BUN 45 H, Creatinine 2.97 H, Estim Creat Clear Calc 29.63, Est GFR (MDRD) Af Amer 27 L, Est GFR (MDRD) Non-Af 23 L, BUN/Creatinine Ratio 15.2, Glucose 84, Calcium 8.8, B-Natriuretic Peptide 459.6 H Assessment & Plan Assessment/Plan (1) Community acquired pneumonia: PLAN: Plan The patient is a 68 y/o M w/ PMHx: CKD stage III unclear subtype based on GFT trending, Hx CVA, Hx retinal embolism, GERD w/ Hx gastric ulcer/GI bleed, Chronic anemia/Fe deficiency anemia, Valvular Heart Disease w/ Hx Aortic valve endocarditis s/p AVR bioprosthetic and TV repair, CAD, PAF, HTN, HLD, Hypothyroidism, Hx Sick Sinus Syndrome s/p pacemaker status, Hypothyroidism, Tobacco use who presents to the [facility] ED on 03/31/2023 with history of shortness of breath, lightheadedness and dizziness with recently noted anemia with workup ongoing outpatient but given symptomatic prompted ED evaluation. He denies dark stools. #1. Acute hypoxia secondary to RLL Pneumonia: CXR in the ED w/ concern for right lower lobe pneumonia. Will maintain on oxygen with wean as tolerated to room air, continue ATC budesonide, PRN albuterol, maintained on IV Rocephin and Azithromycin, HOB, IS parameters w/ pending sputum cultures, full respiratory viral panel and urine antigens. #2. Acute Symptomatic Anemia on Chronic/Fe deficiency anemia with concern possible GI bleed w/ previous history: Admission hemoglobin 8.9, previous to this 03/25/2023 hemoglobin 9.5 and prior to this 11/17/2022 hemoglobin 14.5 reportedly having this also worked up outpatient, will maintain on IVFs, will obtain serial H+H, given symptomatic presentation will initiate type and cross and administer 1 unit PRBC, allow clears only at this time with n.p.o. status after midnight, maintain on IV PPI, guaiac requested, holding 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 therapy. If + guiac would plan to involve gastroenterology to be cautious. #3. Acute kidney injury on CKD stage III unclear subtype based on GFT trending:Secondary to possible medication as well as acute presumed blood loss anemia with possible transient hypoperfusion. Admission BUN/Cr 45/2.97, prior baseline creatinine noted to be primarily 1.8-2.0 however does appear to have vacillated,most recent prior 11/17/2022 creatinine 1.97. Will hydrate, hold nephrotoxic medications and repeat chemistry in AM. If no improvement would plan FeNa assessment. If worsening, low threshold to involve Nephrology. Given bactrim suspected partially mediated hepatic profile ordered also. #4. Acute hyperkalemia: Patient with recent DS Bactrim for left buttock abscessstarted on 03/26/2023 suspected likely at least partial etiology for hyperkalemia which will be stopped. Admission potassium 6.9, no evidence of hemolysis noted on lab review, as noted initiated in the ED on hyperkalemic treatment, will maintain on telemetry monitoring, administer Kayexalate dose x 1 now, continue to cycle BMP closely and if remains elevated will redose with albuterol, insulinwith dextrose, calcium gluconate, IV fluids and repeat dose of Kayexalate if necessary. Given bactrim suspected partially mediated hepatic profile ordered also. #5. Recent anaerobic cocci/gram-negative jyacee left buttock abscess: Patient withsurgery visit evaluation 04/15 noted in the system, history of previous abscesses in that region with onset 03/25/2023 clear/yellow drainage with no feverwith I&D performed in the office with cavity packed with 1/2 inch iodoform packing with pressure dressing with gauze and ABD padding with recommended packing removal today following and continued sitz bath's, dressings until drainage stops and Bactrim double strength regimen twice daily for 10 days. 03/26/2023 cultures with no growth aerobically however anaerobic culture notes anaerobic cocci and gram-negative jaycee preliminary growth with further studies reported to follow. Bactrim therapy is likely at least a partial etiology for patient's acute kidney injury as well as hyperkalemia given no other changes noted. Will continue dressing changes, wound RN consultation, stop Bactrim and at this time will transition to IV Rocephin in interim given concurrent concern for pneumonia. #6. Valvular heart disease with history of previous endocarditis: Patient status post previous AV replacement with endocarditis history as noted, also status post TV repair, most recent echocardiogram noted 11/20/2020 with normal LVsystolic function, EF 60%, moderate concentric LVH, LA moderately enlarged, RA mildly enlarged, mild MVI, status post TV repair evident, mild transvalvular insufficiency of the tricuspid valve, aortic valve not well-visualized however upon 3D imaging assessment appears to have stable bioprosthetic AV apparatus in place, mild transvalvular insufficiency of the aortic valve, transmitral diastolic flow velocities suggestive of diastolic dysfunction. Encouraged continued outpatient follow-up with cardiology. #7. PAF: As noted given presentation we will temporally hold apixaban regimen pending further evaluation, hypertensive regimen however given recent history ofsymptomatic anemia low threshold to hold if needed. #8. History CVA: Given presentation as noted holding apixaban, will continue Coreg regimen however given history of symptomatic anemia low threshold to temporally hold if needed. #9. History sick sinus syndrome: Status post pacemaker status, encourage continued outpatient follow-up with cardiology. #10. Hypertension: Will cautiously continue patient home amlodipine as well as Coreg but given symptomatic anemia will obtain orthostatics and low threshold tohold, IV hydralazine if needed. #11. Hyperlipidemia: We will continue patient on statin therapy. #12. Tobacco Abuse: Encouraged cessation, inpatient consultation per RT, NR if desired. #13. Hypothyroidism: We will continue patient on levothyroxine regimen. #14. GERD w/ prior GI bleed component as noted above: As noted will maintain onIV PPI. #15. DVT prophylaxis: SCDs, temporarily holding eliquis as noted given unclear etiology for anemia. #16. CODE status: Patient KELLI is his Sister Clifford and living will is currently in place. Discussed CODE status at length including difference between FULL code, DNR-CCA and DNR-CC status. Following discussions about the differences in these status, requested Full Code status. Advanced Care Planning Face to Face Time: 16 minutes. Charges/Coding Visit Charges Inpatient E&M: 21358 Init Hosp L3 Procedures Hospitalists Procedures: 85553 Advncd Care Plan 30 Min 03/31/23 1632 <Electronically signed by Noemí Vela MD> Cosigner Signature (if applicable): CC: Dr. Noemí Vela MD; Dr. Gracy Shin, DO~ Signed [facility] Work Phone: 1(591) 956-303001-09-2024 Discharge summary Author Johann Karyn [facility] March 31, 2023 4:02pm Note Date/Time March 31, 2023 3: 25pm [facility] Medical Records Department [address] [place] [address] Emergency Department Summary 03/31/23 MR#: [id number] Acct: [id number] Name: FRANK WHITE Fiona Rep #:[id number] : [id number] 68 From: Johann Hill PCP: Dr. Gracy Shin DO Status:REG ER Location: ED HPI History of Present Illness Chief Complaint: Shortness of Breath Informant: patient Narrative Narrative: 2-week history of cough. Denies fevers. Denies myalgias. Reporting exertionaldyspnea. No chest pains. He is on Eliquis for history of paroxysmal A-fib witha pacemaker. Denies vomiting diarrhea or any urinary symptoms. Decreased oral intake. Reports that concerns of worsening anemia. History anemia recent bloodcount of 9. He is required blood transfusions however it has been years ago. He is previously given iron infusions. 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 History of gastric ulcers in the past. Denies rectal bleeding with black tarry stools or any bloody stools. Denies abdominal pain. Denies any chest pains or chest tightness. He has been taking his Eliquis. He states 2018 was on temporary dialysis stills follows nephrology Dr. Rogers. Prior similar symptoms: Yes PFSH PFS Medical History Abnormal EKG Abscess of left buttock Acute bronchitis, unspecified Acute CVA (cerebrovascular accident) (10/27/17) Acute stomach ulcer Anemia Anemia, iron deficiency Aortic stenosis Aortic valve endocarditis (~12/2017) Atherosclerotic heart disease of [place] coronary artery without angina pectoris Atrial fibrillation Atrioventricular block, type I Bruit of left carotid artery Cardiology follow-up encounter Carpal tunnel syndrome Edema of left lower extremity High cholesterol History of echocardiogram History of GI bleed History of stroke History of ulceration HTN (hypertension) Hyperlipidemia Hypothyroidism Kidney disease Kidney failure 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 ligation 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 of 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 Mild atherosclerosis of both carotid arteries Mitral valve insufficiency and aortic valve insufficiency Nonrheumatic tricuspid valve regurgitation Open wound PAF (paroxysmal atrial fibrillation) Premature ventricular contraction Presence of biventricular cardiac pacemaker Presence of permanent cardiac pacemaker (~01/19/18) Retinal embolus Sick sinus syndrome Sinus bradycardia Smoker SOB (shortness of breath) Stroke Thyroid disease Tobacco abuse Ulcer Ventricular hypertrophy Vitamin deficiency Wears dentures Home Medications cyanocobalamin (vitamin B-12) 500 mcg tablet 500 mcg PO QDAY SUPPLEMENT 03/27/17[History Last Taken 03/31/23] acetaminophen 500 mg tablet 1,000 mg PO Q4H PRN Pain 10/27/17 [History Last Taken 03/30/23] pantoprazole 20 mg tablet,delayed release 40 mg PO BID 03/15/18 [History Last Taken 03/31/23] cholecalciferol (vitamin D3) 50 mcg (2,000 unit) tablet 2,000 unit PO DAILY 05/21/18 [History Last Taken 03/31/23] carvedilol 25 mg tablet 25 mg PO BID #180 tabs 05/15/22 [Rx Last Taken 03/31/23] dapagliflozin propanediol 10 mg tablet (Farxiga) 10 mg PO DAILY 11/25/22 [History Last Taken 03/31/23] atorvastatin 20 mg tablet 20 mg PO DAILY #90 tabs 02/06/23 [Rx Last Taken 03/30/23] amlodipine 5 mg tablet 5 mg PO DAILY #90 tabs 02/23/23 [Rx Last Taken 03/31/23] apixaban 5 mg tablet (Eliquis) 5 mg PO BID #180 tabs 03/10/23 [Rx Last Taken 03/31/23] sulfamethoxazole 800 mg-trimethoprim 160 mg tablet (Bactrim DS) 1 tab PO BID 10 days #20 tabs 03/26/23 [Rx Last Taken 03/31/23] levothyroxine 150 mcg tablet 150 mcg PO DAILY 03/31/23 [History Last Taken 03/31/23] Allergy/AdvReac Type Severity Reaction Status Date / Time Penicillins AdvReac Severe Hives Verified 03/31/23 12:00 Family History Father CAD (coronary artery disease) Mother CAD (coronary artery disease) Thyroid disorder Sister Thyroid cancer Grandmother Diabetes Grandfather Alcoholism Surgical History History of aortic valve replacement with bioprosthetic valve (~01/19/18) History of cardiac catheterization History of carpal tunnel surgery History of gastric bypass History of heart surgery (~2018) History of knee surgery History of tricuspid valve repair (~01/19/18) S/P aortic valve replacement Social History Smoking Status: Current every day smoker tobacco type: cigars how long ago did patient quit smokin04/23/2017 alcohol intake: current alcohol intake frequency: a few times a month Alcohol type: hard liquor substance use type: does not use caffeine: Yes Type: coffee what type of physical activity do you participate in: none seatbelt use: always do you feel safe at home: Yes ROS ROS ED Constitutional Constitutional ED: Denies chills, fever(s) or sweats Eyes Eyes: Denies change in vision ENT ENT ED: Denies dysphagia or sore throat Cardiovascular Cardiovascular: Denies chest pain, leg edema, palpitations or racing heartbeat Respiratory/Chest Respiratory/Chest: Reports cough, dyspnea and dyspnea on exertion Gastrointestinal Gastrointestinal: Denies abdominal pain, diarrhea, nausea or vomiting Genitourinary Genitourinary ED: Denies dysuria, hematuria or urinary frequency Musculoskeletal Musculoskeletal: Denies back pain, extremity pain or neck pain Integumentary Denies rash or wounds Neurologic Neurologic: Denies headache(s), paresthesias or weakness EXAM Physical Exam Narrative Exam Narrative: Interventions / MDM: Differential diagnosis: Pneumonia, viral syndrome, electrolyte abnormalities Diagnosis considered but do not suspect: Pulmonary embolus however is chronic anticoagulation. My EKG interpretation: Paced rhythm rate of 62, no ST or T wave changes. Imaging independently reviewed and interpreted by myself: 2 view chest x-ray: Right lower lobe pneumonia. No effusions. External documents reviewed: N/A Test considered but not ordered:N/A ED course: Patient on currently 2 L nasal cannula with pulse ox noted 88% per nursing. He is in no respiratory distress. Laboratory studies obtained, chest x- ray ordered, COVID influenza ordered. No wheezing. White count zero 4.6 hemoglobin 8.9 down from 9.5 recently. Creatinine returned2.97 up from 1.97, potassium 6.9. No EKG changes. Nonhemolyzed. He is treatedwith aerosol treatments along with insulin glucose to shift the potassium. He states reported elevated potassium a year ago he is followed by nephrology Dr. Rogers states has used Lokelma in the past. Chest x-ray consistent with right lower lobe infiltrative findings. Currently SIRS criteria for 0 out of 4. Doesnot meet any sepsis criteria at this time. Covered with Rocephin and Zithromax antibiotics. I spoke with hospitalist Dr. Vela for admission to PCU. Re-evaluation: stable Disposition discussed with patient/family/significant other: Patient Case discussed with consulting clinician: Hospitalist This note was generated with [employer] dictation software. It may contain incorrectwords, spelling, and punctuation that were not noted in checking the note beforesigning. Const Vital Signs: 03/31/23 12:00 03/31/23 13:08 03/31/23 13:09 Temperature 98 F Temperature Source Temporal Pulse Rate 67 65 Respiratory Rate 16 20 H Respiratory Effort Normal Non-Labored Respiratory Depth Normal Respiratory Pattern Normal Blood Pressure 151/89 H 153/89 H Blood Pressure Mean 109 110 Pulse Ox 94 88 Oxygen Delivery Method Room Air Room Air Room Air Oxygen Flow Rate (L/min) 03/31/23 13:10 03/31/23 14:38 03/31/23 14:38 Temperature Temperature Source Pulse Rate 63 Respiratory Rate 17 Respiratory Effort Respiratory Depth Respiratory Pattern Normal Blood Pressure Blood Pressure Mean Pulse Ox 93 93 Oxygen Delivery Method Nasal Cannula Nasal Cannula Oxygen Flow Rate (L/min) 2 2 03/31/23 15:50 Temperature Temperature Source Pulse Rate 68 Respiratory Rate 12 Respiratory Effort Respiratory Depth Respiratory Pattern Blood Pressure 136/77 H Blood Pressure Mean 96 Pulse Ox 92 Oxygen Delivery Method Nasal Cannula Oxygen Flow Rate (L/min) 3 Positive well nourished and well developed Constitutional Narrative: 2 L nasal cannula no respiratory distress General Appearance ED: well developed and NAD HEENT Reports moist mucous membranes normocephalic and atraumatic Eyes PERRL, EOMs intact bilaterally and conjunctivae normal Eyes Narrative: No pallor of conjunctiva. General Eye ED: Yes normal appearance of both eyes Neck no lymphadenopathy and supple General: Negative for tenderness Chest Wall Chest: Negative for tenderness Resp normal respiratory effort and normal air movement Effort and Inspection: symmetric chest movement; Negative for respiratory distress Cardio regular rate, regular rhythm and no murmurs Peripheral Pulses: pulses 2+ throughout GI normal to inspection, nondistended, normoactive bowel sounds and non-tender Palpation: Negative for guarding or rebound tenderness present Back/Spine no CVA tenderness and no thoracic nor lumbar tenderness Extremity normal to inspection General Extremety ED: Negative for edema or tenderness General Extremity: Negative for edema Neuro oriented x3 and no sensory deficits noted Sensorium / Orientation: awake and alert Skin no rashes or lesions noted and no wounds MDM MDM Lab Data Labs: Laboratory Results - last 24 hr 03/31/23 13:45 WBC 4.6 RBC 2.81 L Hgb 8.9 L Hct 30.8 L MCV 109.6 H MCH 31.7 MCHC 28.9 L RDW Std Deviation 67.3 H RDW Coeff of Hugo 17.0 H Plt Count 179 MPV 9.5 Immature Gran % (Auto) 0.200 Neut % (Auto) 68.8 Lymph % (Auto) 19.2 Chaves % (Auto) 9.7 Eos % (Auto) 1.7 Baso % (Auto) 0.4 Absolute Neuts (auto) 3.2 Absolute Lymphs (auto) 0.89 Nucleated RBC % 0 Differential Comment SCANNED Anisocytosis 2+ Microcytosis 1+ Macrocytosis 1+ Sodium 138 Potassium 6.9 H* Chloride 117 H Carbon Dioxide 20.0 L Anion Gap 1 L BUN 45 H Creatinine 2.97 H Estim Creat Clear Calc 29.63 Est GFR (MDRD) Af Amer 27 L Est GFR (MDRD) Non-Af 23 L BUN/Creatinine Ratio 15.2 Glucose 84 Calcium 8.8 B-Natriuretic Peptide 459.6 H Discharge Plan Dx/Rx/DC Orders Clinical Impression: IRINA (acute kidney injury), [facility] current use of 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, Community acquired pneumonia, Hypoxia, Hyperkalemia, Anemia Disposition Disposition: [facility] What to do if you have Problems For any increased pain, shortness of breath, bleeding, nausea or vomiting, chestpain, or any unexpected problems, contact your Primary Care Provider. Call [facility] ([phone]) or report to the closest Emergency Room. Call 911 if necessary. 03/31/23 1602 <Electronically signed by Johann Hill> Cosigner Signature (if applicable): CC: Dr. Gracy Shin DO ~ Signed [facility] Work Phone: 1([phone]) 388-226810-30-2018 History of Past illness Narrative* Problem Noted Date Diagnosed Date Resolved Date Stress hyperglycemia 01/19/2018 018 Overview: No h/o DM. Haley-operative insulin resistance and exacerbation of hyperglycemia. SSI. Acute blood loss anemia 01/19/201804/2017 Overview: TRANSFUSE NEEDED Preop testing 01/07/2018 01/22/2018 [facility] Surgeon: Cuauhtemoc Parker M.D. Informed Consent Completed: No STS Score: n/a CAD: No Is intended procedure a CABG: No - is a beta magdy ordered? Yes H & P completed: Yes PA/LAT: Completed CT: Completed MRI: N/A LE US: N/A Cath: No Echo:Completed EKG: Completed EF %: 60 PI's: N/A Carotid: N/A Mapping: N/A Dental: N/A: edentulous PFT's: Pending Recent Labs 01/12/18 0439 WBC 4.33 HB 7.4* HCT 23.1* PLT 93* CREAT 6.05* UA: Abnormal ABO/ABO Confirmed: Yes Blood ordered:4 SA Swab: Yes - results: Negative Anticoagulation: hep gtt Op Note: Yes Pacemaker Check: pending Implants: no Consults: ID (Dr. 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 Continue current MWF IHD. Patient still anuric 2. Medina has been removed. Can do bladder scan q48 hours since patient has BPH 3. Continue daily renal function panal 4. Renally dose medications 5. Treat underlying infection. Renal function may or may not return despite treating the now known underlying infectious agent DM: No SIGNATURE: Janae Cao APRN.CNP DATE of SERVICE: January 12, 2018 TIME of SERVICE: 10:35 AM Hyperkalemia 12/26/2017 01/13/2018 Last Assessment & Plan: Initial admission K+ of 5.6 current 5.4 PLAN: Appreciate Nephrology Recs Will initiate Dialysis Rectus sheath hematoma 12/26/201701/23 Overview: History: Pt with hematoma found on CT. Had renal Bx at OSH? Assessment: Stable by repeat CT Plan: Monitor Last Assessment & Plan: moderate LEFT rectus sheath hematoma measuring 7.1 x 5.2 x 19 cm Surgery following PLAN: Appreciate Surgery Recs: -No indication for emergent surgical intervention -Check CBC Q6 h, transfuse PRN -If there is any concern for active bleeding, consider getting IR involved for localization/embolization -- Will get Abd ultrasound to evaluate If hematoma is enlarging/actively bleeding Anemia 12/26/2017 01/23/2018 Overview: History: Hx FE, B12 deficiencies, UGI bleeds, Heyde's syndrome Assessment: BMBx - Normocytic anemia with anisocytosis and no increased schistocytes or spherocytes. Thrombocytopenia. Iron studies suggest anmeia of chronic disease Plan: Started Aranesp 60 mcg/week Last Assessment & Plan: Hx of iron deficient anemia and B12 [...] Urine prot:124(elevated) Alpha1/2 beta, gamma, glob: wnl Heathrow:464.1(elevated) Nicola:343(eleated) K/l Ratio1.35(wnl) Most recent Hgb: 7.1 [...] you) Will follow up on eluate of BASILIO give IV ferrlicet 125 mg daily x 5 days - ABD WALL U/S Repeat Hapto, Coags, get TEG Pancytopenia 12/26/2017 01/23/2018 Overview: History: Hx anemia, FE, B12 Assessment: BMBX Normocytic anemia with anisocytosis Plan: Hematology signed off. Last Assessment & Plan: Plts: 78 Shistocytes seen on Peripheral smear, BMbx: normocellular Possible Consumptive process w/ hemolytic anemia PLAN: Appreciate Hematology recs Lymphadenopathy 12/26/2017 01/22/2018 Last Assessment & Plan: Multiple enlarged LN seen on U/S and 2.6 LN seen abutting Celiac on CT abd/pel PLAN: Heme following Appreciate rec Recommend Biopsy, r/o Lymphoproliferative disease CVA, old, dysphagia 12/26/2017 01/24/20 18 Overview: History: Remote Assessment: Mild dysphagia Plan: Neuro cleared pt for OHS. No new neuro deficits Last Assessment & Plan: Hx of Dysphagia Currently NPO PLAN: MANAGER RAIL consulted Diet? CAD (coronary artery disease) 12/26/2017 01/22/2018 Last Assessment & Plan: S/p CABG and AVReplacement Most recent echo: PLAN: Holding HTN meds Continue Statin Therapy Heyd's syndrome 12/26/2017 01/22/2018 Last Assessment & Plan: PLAN: Appreciate Hematology Recs Obesity, Class I, BMI 30-34.9 12/26/2017 01/22/2018 Malnutrition of moderate degree 12/25/2017 01/23/2018 Overview: History: Per nutrition Assessment: In the context of Acute Illness or Injury based on: Insufficient Energy Intake: <75% for >7 days Subcutaneous Fat Loss: Mild Loss Muscle Loss Mild Loss A/P: Heart healthy diet started Intravenous catheter in place 12/24/2017 01/21/2018 Overview: Added automatically from request for surgery [id number] documented as of this encounter (statuses as of 06/26/2023) [facility]10-30-2018 History of Past illness Narrative* Problem Noted Date Diagnosed Date Resolved Date Stress hyperglycemia 01/19/2018 018 Overview: No h/o DM. Haley-operative insulin resistance and exacerbation of hyperglycemia. SSI. Acute blood loss anemia 01/19/201804/2017 Overview: TRANSFUSE NEEDED Preop testing 01/07/2018 01/22/2018 [facility] Surgeon: Cuauhtemoc Parker M.D. Informed Consent Completed: No STS Score: n/a CAD: No Is intended procedure a CABG: No - is a beta magdy ordered? Yes H & P completed: Yes PA/LAT: Completed CT: Completed MRI: N/A LE US: N/A Cath: No Echo:Completed EKG: Completed EF %: 60 PI's: N/A Carotid: N/A Mapping: N/A Dental: N/A: edentulous PFT's: Pending Recent Labs 01/12/18 0439 WBC 4.33 HB 7.4* HCT 23.1* PLT 93* CREAT 6.05* UA: Abnormal ABO/ABO Confirmed: Yes Blood ordered:4 SA Swab: Yes - results: Negative Anticoagulation: hep gtt Op Note: Yes Pacemaker Check: pending Implants: no Consults: ID (Dr. 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 Continue current MWF IHD. Patient still anuric 2. Medina has been removed. Can do bladder scan q48 hours since patient has BPH 3. Continue daily renal function panal 4. Renally dose medications 5. Treat underlying infection. Renal function may or may not return despite treating the now known underlying infectious agent DM: No SIGNATURE: Janae Cao APRN.CNP DATE of SERVICE: January 12, 2018 TIME of SERVICE: 10:35 AM Hyperkalemia 12/26/2017 01/13/2018 Last Assessment & Plan: Initial admission K+ of 5.6 current 5.4 PLAN: Appreciate Nephrology Recs Will initiate Dialysis Rectus sheath hematoma 12/26/201701/23 Overview: History: Pt with hematoma found on CT. Had renal Bx at OSH? Assessment: Stable by repeat CT Plan: Monitor Last Assessment & Plan: moderate LEFT rectus sheath hematoma measuring 7.1 x 5.2 x 19 cm Surgery following PLAN: Appreciate Surgery Recs: -No indication for emergent surgical intervention -Check CBC Q6 h, transfuse PRN -If there is any concern for active bleeding, consider getting IR involved for localization/embolization -- Will get Abd ultrasound to evaluate If hematoma is enlarging/actively bleeding Anemia 12/26/2017 01/23/2018 Overview: History: Hx FE, B12 deficiencies, UGI bleeds, Heyde's syndrome Assessment: BMBx - Normocytic anemia with anisocytosis and no increased schistocytes or spherocytes. Thrombocytopenia. Iron studies suggest anmeia of chronic disease Plan: Started Aranesp 60 mcg/week Last Assessment & Plan: Hx of iron deficient anemia and B12 [...] Urine prot:124(elevated) Alpha1/2 beta, gamma, glob: wnl [place]:464.1(elevated) Nicola:343(eleated) K/l Ratio1.35(wnl) Most recent Hgb: 7.1 [...] you) Will follow up on eluate of BASILIO give IV ferrlicet 125 mg daily x 5 days - ABD WALL U/S Repeat Hapto, Coags, get TEG Pancytopenia 12/26/2017 01/23/2018 Overview: History: Hx anemia, FE, B12 Assessment: BMBX Normocytic anemia with anisocytosis Plan: Hematology signed off. Last Assessment & Plan: Plts: 78 Shistocytes seen on Peripheral smear, BMbx: normocellular Possible Consumptive process w/ hemolytic anemia PLAN: Appreciate Hematology recs Lymphadenopathy 12/26/2017 01/22/2018 Last Assessment & Plan: Multiple enlarged LN seen on U/S and 2.6 LN seen abutting Celiac on CT abd/pel PLAN: Heme following Appreciate rec Recommend Biopsy, r/o Lymphoproliferative disease CVA, old, dysphagia 12/26/2017 01/24/20 18 Overview: History: Remote Assessment: Mild dysphagia Plan: Neuro cleared pt for OHS. No new neuro deficits Last Assessment & Plan: Hx of Dysphagia Currently NPO PLAN: MANAGER RAIL consulted Diet? CAD (coronary artery disease) 12/26/2017 01/22/2018 Last Assessment & Plan: S/p CABG and AVReplacement Most recent echo: PLAN: Holding HTN meds Continue Statin Therapy Heyd's syndrome 12/26/2017 01/22/2018 Last Assessment & Plan: PLAN: Appreciate Hematology Recs Obesity, Class I, BMI 30-34.9 12/26/2017 01/22/2018 Malnutrition of moderate degree 12/25/2017 01/23/2018 Overview: History: Per nutrition Assessment: In the context of Acute Illness or Injury based on: Insufficient Energy Intake: <75% for >7 days Subcutaneous Fat Loss: Mild Loss Muscle Loss Mild Loss A/P: Heart healthy diet started Intravenous catheter in place 12/24/2017 01/21/2018 Overview: Added automatically from request for surgery [id number] documented as of this encounter (statuses as of 07/07/2023) [facility]10-01-2018 Evaluation note* Diagnosis Onset Date Resolution Status Presence of biventricular cardiac pacemaker acute Presence of permanent cardiac pacemaker December, chronic Sick sinus syndrome chronic History of stroke acute Bilateral carpal tunnel syndrome chronic Polyneuropathy chronic PAF (paroxysmal atrial fibrillation) acute Hyperlipidemia chronic Presence of permanent cardiac pacemaker December, chronic History of aortic valve repl acement with bioprosthetic valve December, resolved History of tricuspid valve repair December, resolved Acute upper respiratory infection acute Encounter for screening for other viral diseases acute Acute bronchitis, unspecified acute Acute upper respiratory infection acute Edema of left lower extremity acute [facility] Work Phone: 1(630) 381-118910-01-2018 Evaluation note* Diagnosis Onset Date Resolution Status PAF (paroxysmal atrial fibrillation) acute Hyperlipidemia chronic Presence of permanent cardiac pacemaker December, chronic History of aortic valve repl acement with bioprosthetic valve December, resolved History of tricuspid valve repair December, resolved [facility] Work Phone: [phone]) [phone] Evaluation note* Diagnosis Onset Date Resolution Status PAF (paroxysmal atrial fibrillation) acute Hyperlipidemia chronic Presence of permanent cardiac pacemaker December, chronic History of aortic valve repl acement with bioprosthetic valve December, resolved History of tricuspid valve repair December, resolved Bilateral carpal tunnel syndrome chronic Polyneuropathy chronic History of stroke resolved Presence of biventricular cardiac pacemaker acute Atrial fibrillation chronic Sick sinus syndrome chronic [facility] Work Phone: Consult note Author Sánchze Sweet [facility] April 03, 2023 2:27pm Note Date/Time April 03, 2023 2 :27pm [facility] Medical Records Department [address] [place] [address] Counseling Note - Pharmacy 04/03/23 1426 MR#: [id number] Acct: [id number] Name: FRANK WHITE Rep #:[id number] : [id number] 68 From: Sánchez Sweet PCP: Dr. Gracy Shin, DO Status:ADM IN Y Location: [place] [address] Pharmacy [facility] Service has performed discharge medication reconciliation and counseling for this patient. The patient's discharge medication list was reviewed for discrepancies and discrepancies were resolved. The patient was counseled on the following discharge medications and changes in medications for homegoing were reviewed. The Reason for Use, instructions for use, and potential side effects were reviewed for all new medications. The patient's questions regarding all of their medications were answered. 1. Azithromycin 500 mg PO daily x 4 days The patient was able to verbally demonstrate an understanding of their dischargemedications. Medications at Discharge Home Medications cyanocobalamin (vitamin B-12) 500 mcg tablet 500 mcg PO QDAY SUPPLEMENT 03/27/17 acetaminophen 500 mg tablet 1,000 mg PO Q4H PRN Pain 10/27/17 pantoprazole 20 mg tablet,delayed release 40 mg PO BID reflux 03/15/18 cholecalciferol (vitamin D3) 50 mcg (2,000 unit) tablet 2,000 unit PO DAILY vitamin 05/21/18 carvedilol 25 mg tablet 25 mg PO BID blood pressure #180 tabs 05/15/22 dapagliflozin propanediol 10 mg tablet (Farxiga) 10 mg PO DAILY diabetes 11/25/22 atorvastatin 20 mg tablet 20 mg PO DAILY cholesterol #90 tabs 02/06/23 amlodipine 5 mg tablet 5 mg PO DAILY blood pressure #90 tabs 02/23/23 apixaban 5 mg tablet (Eliquis) 5 mg PO BID blood thinner #180 tabs 03/10/23 levothyroxine 150 mcg tablet 150 mcg PO DAILY thyroid 03/31/23 azithromycin 500 mg tablet 500 mg PO DAILY 4 days #4 tabs 04/03/23 04/03/23 1427 <Electronically signed by Sánchez matt> Date _ Sánchez Sweet Cosigner Signature (if applicable): Date CC: ~ Signed [facility] Work Phone: Discharge summary Author Loki Baker [facility] November 20, 2022 1:54pm Note Date/Time November 20, 2022 1: 54pm [facility] Medical Records Department [address] [place] [address] Instructions for Home/Discharge Instructions 11/20/22 1354 MR#: [id number] Acct: [id number] Name: FRANK WHITE Rep #:[id number] : 1955 67 From: Loki santacruz DO PCP: Dr. Gracy Shin, Status:REG [facility] [place] Discharge Instructions Follow Up Care Test Results: Test results from this visit will be discussed in further detail at your follow- up appointment, if applicable. Discharge Plan Admission Primary Reason for Your Visit: Left index finger revision amputation Attending Provider: Loki Baker Primary Care Provider: Gracy Shin Instructions Additional Instructions / Restrictions: Follow preprinted instructions for surgeons office Discharge Orders/Prescriptions Prescriptions: New oxycodone-acetaminophen 5-325 mg tablet 1 tab PO Q6H PRN (Reason: pain) 7 Days Qty: 28 0RF doxycycline monohydrate 100 mg capsule 100 mg PO BID 14 Days Qty: 28 0RF Continued cholecalciferol (vitamin D3) 2,000 unit tablet 2,000 unit tablet 2,000 unit PO DAILY thiamine HCl (vitamin B1) 100 mg tablet 100 mg PO DAILY pantoprazole 20 mg tablet,delayed release (DR/EC) 40 mg PO BID levothyroxine 175 mcg tablet 175 mcg PO DAILY acetaminophen 500 MG tablet 500 mg PO Q4H PRN PRN (Reason: Pain) cyanocobalamin (vitamin B-12) 500 mcg tablet 500 mcg PO QDAY atorvastatin 20 mg tablet 20 mg PO DAILY Qty: 90 3RF amlodipine 5 mg tablet 5 mg PO DAILY Qty: 90 3RF carvedilol 25 mg tablet 25 mg PO BID Qty: 180 4RF Eliquis 5 mg tablet 5 mg PO BID Qty: 180 4RF Referrals / Follow Up: Gracy Shin DO [Primary Care Provider] - Disposition Disposition (needs filled in before D/C Order can be placed): Home, Self Care 11/20/22 5614<Electronically signed by Loki Baker DO>Loki Baker DO CC: Dr. Gracy Shin DO ~ Signed [facility] Work Phone: evaluation note* Diagnosis Onset Date Resolution Status History of stroke acute Bilateral carpal tunnel syndrome chronic Polyneuropathy chronic PAF (paroxysmal atrial fibrillation) acute Hyperlipidemia chronic Presence of permanent cardiac pacemaker December, chronic History of aortic valve repl acement with bioprosthetic valve December, resolved History of tricuspid valve repair December, resolved Acute upper respiratory infection acute Encounter for screening for other viral diseases acute Acute bronchitis, unspecified acute Acute upper respiratory infection acute Edema of left lower extremity acute PAF (paroxysmal atrial fibrillation) acute Presence of biventricular cardiac pacemaker acute Presence of permanent cardiac pacemaker December, chronic Sick sinus syndrome [facility] Work Phone: Evaluation note* Diagnosis Onset Date Resolution Status PAF (paroxysmal atrial fibrillation) acute Presence of biventricular cardiac pacemaker acute Sick sinus syndrome [facility] Work Phone: Evaluation note* Diagnosis Onset Date Resolution Status PAF (paroxysmal atrial fibrillation) acute Presence of biventricular cardiac pacemaker acute Atrial fibrillation chronic Sick sinus syndrome chronic Abscess of left buttock acut e [facility] Work Phone: Evaluation note* Diagnosis Onset Date Resolution Status PAF (paroxysmal atrial fibrillation) acute Presence of biventricular cardiac pacemaker acute Atrial fibrillation chronic Sick sinus syndrome chronic Abscess of left buttock acut e IRINA (acute kidney injury) ac sanchez Anemia acute Community acquired pneumonia acute Hyperkalemia acute Hypoxia acute 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 current use of 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 chronic [facility] Work Phone: Evaluation note* Diagnosis Onset Date Resolution Status PAF (paroxysmal atrial fibrillation) acute Presence of biventricular cardiac pacemaker acute Atrial fibrillation chronic Sick sinus syndrome chronic Abscess of left buttock acut e IRINA (acute kidney injury) ac sanchez Anemia acute Community acquired pneumonia acute Hyperkalemia acute Hypoxia acute CKD (chronic kidney disease) stage 3, GFR 30-59 ml/min chronic 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 current use of 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 chronic [facility] Work Phone: Evaluation note* Diagnosis Onset Date Resolution Status PAF (paroxysmal atrial fibrillation) acute Presence of biventricular cardiac pacemaker acute Atrial fibrillation chronic Sick sinus syndrome chronic Abscess of left buttock acut e Community acquired pneumonia acute Hyperkalemia acute Hypoxia acute IRINA (acute kidney injury) re solved [facility] Work Phone: Evaluation note* Diagnosis Other pancytopenia (HCC)- Primary Other pancytopenia Other abnormality of red blood cells Anemia, unspecified type [facility] Diagnosis Onset Date Resolution Status PAF (paroxysmal atrial fibrillation) acute Presence of biventricular cardiac pacemaker acute Atrial fibrillation chronic Sick sinus syndrome chronic Abscess of left buttock acut e Community acquired pneumonia acute Hyperkalemia acute Hypoxia acute IRINA (acute kidney injury) re solved MUNIZ (dyspnea on exertion) ac sanchez PAF (paroxysmal atrial fibrillation) acute Hyperlipidemia chronic Presence of permanent cardiac pacemaker December, chronic History of aortic valve repl acement with bioprosthetic valve December, resolved History of tricuspid valve repair December, resolved [facility] Work Phone: Evaluation note* Diagnosis Other abnormality of red blood cells- [facility] Additional Instructions Follow preprinted instructions for surgeons office Implant Used?: [facility] Work Phone: Hospital Discharge instructions Additional Instructions Ensure that you follow-up with your PCP.[facility] Work Phone: Reason for referral (narrative)No reason for [facility] Work Phone: Summary Purpose Family History No Family History Records Found Relationship Condition Age at Onset Recorded Date/T rajiv father Coronary artery disease Unknown mother Coronary artery disease Unknown Disorder of thyroid Unknown sister Malignant neoplasm of thyroid gland Unkno wn grandmother Diabetes mellitus Unknown grandfather Alcoholism Unknown Advance Directives No Advanced Directives Records Found Advance Directive Response Recorded Date/ Time Living Will Yes February 24 12:04pm Power of Home Stereo Equipment Installer Yes February 25, 2020 12:04pm Advance Directive Response Recorded Date/ Time Living Will Yes February 24 11:04am Power of Home Stereo Equipment Installer Yes February 25, 2020 11:04am Advance Directive Response Recorded Date/ Time Advance Directives No April 10, 2017 9:03am Living Will Yes November 19 3 8:37am Power of Home Stereo Equipment Installer No November 19 8:37am Advance Directive Response Recorded Date/ Time Advance Directives No April 10, 2017 8:03am Living Will No March 31 1:09pm Power of Home Stereo Equipment Installer No March 31 1:09pm Advance Directive Response Recorded Date/ Time Advance Directives No April 10, 2017 8:03am Living Will No March 31 6:18pm Power of Home Stereo Equipment Installer No March 31 6:18pm Advance Directive Response Recorded Date/ Time Name of Medical Power of Home Stereo Equipment Installer RADHA Horton, sist er April 24, 2023 11:11am Advance Directives No April 10, 2017 8:03am Living Will Yes April 24 11:11am Power of Home Stereo Equipment Installer Yes April 24, 2023 11:11am Advance Directive Response Recorded Date/ Time Name of Medical Power of Home Stereo Equipment Installer RADHA Horton, sist er April 24, 2023 12:11pm Advance Directives No April 10, 2017 9:03am Living Will Yes April 24 12:11pm Power of Home Stereo Equipment Installer Yes April 24, 2023 12:11pm Documents on File Type Date Recorded Patient Embedded Firmware Developer Expl anation Advance Directive(s) 01/28/2018 2:30 PM Date Activated Date Inactivated Comments 01/07/2018 12:37 PM 01/22/2018 6:53 PM Question Answer Comments Full Code Order Discussed With: Patient Advance Directive Response Recorded Date/ Time Living Will No December 25 4:25pm Do you have a Healthcare Power of Home Stereo Equipment Installer? No December 26, 2023 4:25pm Living Will No April 06 4:31pm Do you have a Healthcare Power of Home Stereo Equipment Installer? No April 06, 2024 4:31pm Living Will No April 03 11:21am Do you have a Healthcare Power of Home Stereo Equipment Installer? No April 03, 2024 11:21am Advance Directives No April 10, 2017 9:03am Advance Directive Response Recorded Date/ Time Living Will No December 25 4:25pm Do you have a Healthcare Power of Home Stereo Equipment Installer? No December 26, 2023 4:25pm Advance Directives No April 10, 2017 9:03am Advance Directive Response Recorded Date/ Time Advance Directives No April 10, 2017 9:03am Advance Directive Response Recorded Date/ Time Living Will No December 25 4:25pm Do you have a Healthcare Power of Home Stereo Equipment Installer? No December 26, 2023 4:25pm Living Will No October 11, 2024 9:20am Do you have a Healthcare Power of Home Stereo Equipment Installer? No October 11, 2024 9:20am Advance Directives No October 11 9:20am Procedure Findings Note HNO ID: [id number] Author: Chip Maciel Service: Vascular Surgery Author Type: Physician Type: Brief Op Note Filed: 05/13/2018 1:50 PM Note Text: VASCULAR SURGERY POST PROCEDURE NOTE DATE: 05/13/18 NAME: Frank White LOG ID: [id number] Pre-Procedure Diagnosis: recovered renal function Post Procedure Diagnosis: Same. Shank Sander: Dr. Maritza Maciel (Primary) Procedure: R IJ tunneled dialysis catheter removal Anesthesia: Local Findings: successful Estimated Blood Loss: Minimal (Less Than 25 mL). Specimen: None. Complications: None. . Full report with procedural details to follow and will become available under Imaging Reports. Please contact for any questions or concerns. Maritza Maciel MD Chief Complaint and Reason for Visit Chief Complaint 3 mos remote f/u 6 M FU 6 M FU PCR COVID TEST/SYMPTOMATIC Cough X-RAYS LEFT LEG CONCERN FOR CELLULITIS LLE PITTING EDEMA, PAIN Reason for Visit Presence of biventri cular cardiac pacemaker Presence of permanent cardiac pacemaker Sick sinus syndrome History of stroke Bilateral carpal tunnel syndrome Polyneuropathy PAF (paroxysmal atrial fibrillation) Hyperlipidemia Presence of permanent cardiac pacemaker History of aortic valve replacement with bioprosthetic valve History of tricuspid valve repair Acute upper respiratory infection Encounter for screening for other viral diseases Acute bronchitis, unspecified Acute upper respiratory infection Edema of left lower extremity Chief Complaint 6 M FU 6 M FU PCR COVID TEST/SYMPTOMATIC Cough X-RAYS LEFT LEG CONCERN FOR CELLULITIS LLE PITTING EDEMA, PAIN annual in-clinic TRAINMAN-P f/u INT LABS AND NEED ORDER FOR James Reason for Visit History of stroke Bilateral carpal tunnel syndrome Polyneuropathy PAF (paroxysmal atrial fibrillation) Hyperlipidemia Presence of permanent cardiac pacemaker History of aortic valve replacement with bioprosthetic valve History of tricuspid valve repair Acute upper respiratory infection Encounter for screening for other viral diseases Acute bronchitis, unspecified Acute upper respiratory infection Edema of left lower extremity PAF (paroxysmal atrial fibrillation) Presence of biventricular cardiac pacemaker Presence of permanent cardiac pacemaker Sick sinus syndrome Chief Complaint INT LABS AND NEED OR TYLER FOR James 3 mos remote PPM f/u 6 M FU Reason for Visit PAF (paroxysmal atri al fibrillation) Hyperlipidemia Presence of permanent cardiac pacemaker History of aortic valve replacement with bioprosthetic valve History of tricuspid valve repair Chief Complaint 3 mos remote PPM f/u 6 M FU 9 M FU 3 mos remote TRAINMAN-P f/u Reason for Visit PAF (paroxysmal atri al fibrillation) Hyperlipidemia Presence of permanent cardiac pacemaker History of aortic valve replacement with bioprosthetic valve History of tricuspid valve repair Bilateral carpal tunnel syndrome Polyneuropathy History of stroke Presence of biventricular cardiac pacemaker Atrial fibrillation Sick sinus syndrome Chief Complaint LACERATION WOUND CHECK 3 mos remote PPM f/u 3 ORDERING DOCTORS Amputation Finger/Hand Reason for Visit PAF (paroxysmal atri al fibrillation) Presence of biventricular cardiac pacemaker Sick sinus syndrome Chief Complaint 3 mos remote TRAINMAN-P f /u Abscess Left Buttock SOB Reason for Visit PAF (paroxysmal atri al fibrillation) Presence of biventricular cardiac pacemaker Atrial fibrillation Sick sinus syndrome Abscess of left buttock Chief Complaint 3 mos remote TRAINMAN-P f /u Abscess Left Buttock Shortness of breath RLL PNA, HYPOXIA, ACUTE ANEMIA, IRINA Reason for Visit PAF (paroxysmal atri al fibrillation) Presence of biventricular cardiac pacemaker Atrial fibrillation Sick sinus syndrome Abscess of left buttock IRINA (acute kidney injury) Anemia Community acquired pneumonia Hyperkalemia Hypoxia 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 current use of 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 Chief Complaint 3 mos remote TRAINMAN-P f /u Abscess Left Buttock Shortness of breath RLL PNA, HYPOXIA, ACUTE ANEMIA, IRINA RLL PNA, HYPOXIA, ACUTE ANEMIA, IRINA RLL PNA, HYPOXIA, ACUTE ANEMIA, IRINA RLL PNA, HYPOXIA, ACUTE ANEMIA, IRINA RLL PNA, HYPOXIA, ACUTE ANEMIA, IRINA Reason for Visit PAF (paroxysmal atri al fibrillation) Presence of biventricular cardiac pacemaker Atrial fibrillation Sick sinus syndrome Abscess of left buttock IRINA (acute kidney injury) Anemia Community acquired pneumonia Hyperkalemia Hypoxia CKD (chronic kidney disease) stage 3, GFR 30-59 ml/min 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 current use of 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 Chief Complaint 3 mos remote TRAINMAN-P f /u Abscess Left Buttock Shortness of breath RLL PNA, HYPOXIA, ACUTE ANEMIA, IRINA RLL PNA, HYPOXIA, ACUTE ANEMIA, IRINA RLL PNA, HYPOXIA, ACUTE ANEMIA, IRINA RLL PNA, HYPOXIA, ACUTE ANEMIA, IRINA RLL PNA, HYPOXIA, ACUTE ANEMIA, IRINA RLL PNA, HYPOXIA, ACUTE ANEMIA, IRINA Reason for Visit PAF (paroxysmal atri al fibrillation) Presence of biventricular cardiac pacemaker Atrial fibrillation Sick sinus syndrome Abscess of left buttock IRINA (acute kidney injury) Anemia Community acquired pneumonia Hyperkalemia Hypoxia CKD (chronic kidney disease) stage 3, GFR 30-59 ml/min 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 current use of 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 Chief Complaint 3 mos remote TRAINMAN-P f /u Abscess Left Buttock Shortness of breath RLL PNA, HYPOXIA, ACUTE ANEMIA, IRINA RLL PNA, HYPOXIA, ACUTE ANEMIA, IRINA RLL PNA, HYPOXIA, ACUTE ANEMIA, IRINA RLL PNA, HYPOXIA, ACUTE ANEMIA, IRINA RLL PNA, HYPOXIA, ACUTE ANEMIA, IRINA RLL PNA, HYPOXIA, ACUTE ANEMIA, IRINA INJECTAFER 750MG Reason for Visit PAF (paroxysmal atri al fibrillation) Presence of biventricular cardiac pacemaker Atrial fibrillation Sick sinus syndrome Abscess of left buttock Community acquired pneumonia Hyperkalemia Hypoxia IRINA (acute kidney injury) Chief Complaint Pacer Check Remote 3 mos remote TRAINMAN-P f/u Abscess Left Buttock Shortness of breath RLL PNA, HYPOXIA, ACUTE ANEMIA, IRINA RLL PNA, HYPOXIA, ACUTE ANEMIA, IRINA RLL PNA, HYPOXIA, ACUTE ANEMIA, IRINA RLL PNA, HYPOXIA, ACUTE ANEMIA, IRINA RLL PNA, HYPOXIA, ACUTE ANEMIA, IRINA RLL PNA, HYPOXIA, ACUTE ANEMIA, IRINA INJECTAFER 750MG INJECTAFER 750MG SOB Reason for Visit PAF (paroxysmal atri al fibrillation) Presence of biventricular cardiac pacemaker Atrial fibrillation Sick sinus syndrome Abscess of left buttock Community acquired pneumonia Hyperkalemia Hypoxia IRINA (acute kidney injury) Chief Complaint Pacer Check Remote 3 mos remote TRAINMAN-P f/u Abscess Left Buttock Shortness of breath RLL PNA, HYPOXIA, ACUTE ANEMIA, IRINA RLL PNA, HYPOXIA, ACUTE ANEMIA, IRINA RLL PNA, HYPOXIA, ACUTE ANEMIA, IRINA RLL PNA, HYPOXIA, ACUTE ANEMIA, IRINA RLL PNA, HYPOXIA, ACUTE ANEMIA, IRINA RLL PNA, HYPOXIA, ACUTE ANEMIA, IRINA INJECTAFER 750MG INJECTAFER 750MG SOB ASCITES NONRHEUMATIC TRICUSPID Reason for Visit PAF (paroxysmal atri al fibrillation) Presence of biventricular cardiac pacemaker Atrial fibrillation Sick sinus syndrome Abscess of left buttock Community acquired pneumonia Hyperkalemia Hypoxia IRINA (acute kidney injury) Chief Complaint Pacer Check Remote 3 mos remote TRAINMAN-P f/u Abscess Left Buttock Shortness of breath RLL PNA, HYPOXIA, ACUTE ANEMIA, IRINA RLL PNA, HYPOXIA, ACUTE ANEMIA, IRINA RLL PNA, HYPOXIA, ACUTE ANEMIA, IRINA RLL PNA, HYPOXIA, ACUTE ANEMIA, IRINA RLL PNA, HYPOXIA, ACUTE ANEMIA, IRINA RLL PNA, HYPOXIA, ACUTE ANEMIA, IRINA INJECTAFER 750MG INJECTAFER 750MG SOB ASCITES NONRHEUMATIC TRICUSPID Amb Documentation Reason for Visit PAF (paroxysmal atri al fibrillation) Presence of biventricular cardiac pacemaker Atrial fibrillation Sick sinus syndrome Abscess of left buttock Community acquired pneumonia Hyperkalemia Hypoxia IRINA (acute kidney injury) Chief Complaint Pacer Check Remote 3 mos remote TRAINMAN-P f/u Abscess Left Buttock Shortness of breath RLL PNA, HYPOXIA, ACUTE ANEMIA, IRINA RLL PNA, HYPOXIA, ACUTE ANEMIA, IRINA RLL PNA, HYPOXIA, ACUTE ANEMIA, IRINA RLL PNA, HYPOXIA, ACUTE ANEMIA, IRINA RLL PNA, HYPOXIA, ACUTE ANEMIA, IRINA RLL PNA, HYPOXIA, ACUTE ANEMIA, IRINA INJECTAFER 750MG INJECTAFER 750MG SOB ASCITES NONRHEUMATIC TRICUSPID Amb Documentation 6 M FU CKD, STAGE 4, *ORAL CONTRAST* Pacer Check Remote Reason for Visit PAF (paroxysmal atri al fibrillation) Presence of biventricular cardiac pacemaker Atrial fibrillation Sick sinus syndrome Abscess of left buttock Community acquired pneumonia Hyperkalemia Hypoxia IRINA (acute kidney injury) MUNIZ (dyspnea on exertion) PAF (paroxysmal atrial fibrillation) Hyperlipidemia Presence of permanent cardiac pacemaker History of aortic valve replacement with bioprosthetic valve History of tricuspid valve repair Chief Complaint Admit Date 6 M FU March 04, 2024 10:49am Pacer Check Remote March 17, 2024 12:02am PREOP March 25, 2024 8: 20am wound April 03, 2024 9 :34am Cysto,Transurethral Resection Prostate-T URP April 08, 2024 4:20pm Cysto,Transurethral Resection Prostate-T URP April 10, 2024 9:32am Hospital Follow Up May 03, 2024 10:33am F17.211 - Nicotine dependence, cigarette s, in bryan May 13, 2024 12:13pm F17.211 - Nicotine dependence, cigarette s, in bryan May 16, 2024 11:37am F17.211 - Nicotine dependence, cigarette s, in bryan May 17, 2024 8:33am BUTTOCK ABSCESS- DISCUSS PERMANENT EXCIS ION June 15, 2024 12:39pm Reason for Visit Admit Date Cholelithiasis March 04, 2024 10:49am Iron deficiency anemia March 04 10:49am Acute urinary retention April 08 4:20pm Nicotine dependence, cigarettes, in bryan on May 03, 2024 10:33am Pilonidal cyst with abscess June 15, 2024 12:39pm Chief Complaint Admit Date Hospital Follow Up May 03, 2024 10:33am F17.211 - Nicotine dependence, cigarette s, in bryan May 13, 2024 12:13pm F17.211 - Nicotine dependence, cigarette s, in bryan May 16, 2024 11:37am F17.211 - Nicotine dependence, cigarette s, in bryan May 17, 2024 8:33am BUTTOCK ABSCESS- DISCUSS PERMANENT EXCIS ION June 15, 2024 12:39pm Pacer Check Remote June 16, 2024 1:1 3am WOUND CHECK June 23, 2024 9:41 am PILONIDAL CYST July 15, 2024 9:1 1am ALSO E-ORDER PT NOT FASTING August 12, 2024 1:19pm Reason for Visit Admit Date Nicotine dependence, cigarettes, in bryan ssion May 03, 2024 10:33am Pilonidal cyst with abscess June 15, 2024 12:39pm Left buttock abscess June 23, 2024 9:4 1am Hidradenitis suppurativa July 15 9:11am Chief Complaint Admit Date Hospital Follow Up May 03, 2024 10:33am F17.211 - Nicotine dependence, cigarette s, in bryan May 13, 2024 12:13pm F17.211 - Nicotine dependence, cigarette s, in bryan May 16, 2024 11:37am F17.211 - Nicotine dependence, cigarette s, in bryan May 17, 2024 8:33am BUTTOCK ABSCESS- DISCUSS PERMANENT EXCIS ION June 15, 2024 12:39pm Pacer Check Remote June 16, 2024 1:1 3am WOUND CHECK June 23, 2024 9:41 am PILONIDAL CYST July 15, 2024 9:1 1am ALSO E-ORDER PT NOT FASTING August 12, 2024 1:19pm DISCUSS JOINT PILONIDAL SURGERY WITH DR KING August 22, 2024 2:24pm Chief Complaint Admit Date F17.211 - Nicotine dependence, cigarette s, in bryan May 13, 2024 12:13pm F17.211 - Nicotine dependence, cigarette s, in bryan May 16, 2024 11:37am F17.211 - Nicotine dependence, cigarette s, in bryan May 17, 2024 8:33am BUTTOCK ABSCESS- DISCUSS PERMANENT EXCIS ION June 15, 2024 12:39pm Pacer Check Remote June 16, 2024 1:1 3am WOUND CHECK June 23, 2024 9:41 am PILONIDAL CYST July 15, 2024 9:1 1am ALSO E-ORDER PT NOT FASTING August 12, 2024 1:19pm DISCUSS JOINT PILONIDAL SURGERY WITH DR KING August 22, 2024 2:24pm Calculus of gallbladder without cholecys titis with September 02, 2024 7:38am Reason for Visit Admit Date Pilonidal cyst with abscess June 15, 2024 12:39pm Left buttock abscess June 23, 2024 9:4 1am Hidradenitis suppurativa July 15 9:11am Hidradenitis suppurativa August 22, 2024 2:24pm Petechial rash August 22, 2024 2:24p m Chief Complaint Admit Date BUTTOCK ABSCESS- DISCUSS PERMANENT EXCIS ION June 15, 2024 12:39pm Pacer Check Remote June 16, 2024 1:1 3am WOUND CHECK June 23, 2024 9:41 am PILONIDAL CYST July 15, 2024 9:1 1am ALSO E-ORDER PT NOT FASTING August 12, 2024 1:19pm DISCUSS JOINT PILONIDAL SURGERY WITH DR KING August 22, 2024 2:24pm Calculus of gallbladder without cholecys titis with September 02, 2024 7:38am Pacer Check Remote September 15, 2024 1:36 am Chief Complaint Admit Date BUTTOCK ABSCESS- DISCUSS PERMANENT EXCIS ION June 15, 2024 12:39pm Pacer Check Remote June 16, 2024 1:1 3am WOUND CHECK June 23, 2024 9:41 am PILONIDAL CYST July 15, 2024 9:1 1am ALSO E-ORDER PT NOT FASTING August 12, 2024 1:19pm DISCUSS JOINT PILONIDAL SURGERY WITH DR KING August 22, 2024 2:24pm Calculus of gallbladder without cholecys titis with September 02, 2024 7:38am Pacer Check Remote September 15, 2024 1:36 am 8 M FU PPM f/u @ 9 September 19, 2024 8:12 am Annual in-clinic f/u Sees KRR @ 8:30 Aug 8:13am Reason for Visit Admit Date Pilonidal cyst with abscess June 15, 2024 12:39pm Left buttock abscess June 23, 2024 9:4 1am Hidradenitis suppurativa July 15 9:11am Hidradenitis suppurativa August 22, 2024 2:24pm Petechial rash August 22, 2024 2:24p m PAF (paroxysmal atrial fibrillation) Aug 8:12am Hyperlipidemia September 19, 2024 8:12 am Presence of permanent cardiac pacemaker September 19, 2024 8:12am History of aortic valve replacement with bioprosthetic valve September 19, 2024 8:12am History of tricuspid valve repair August 232024 8:12am Reason for Visit Admit Date Pilonidal cyst with abscess June 15, 2024 12:39pm Left buttock abscess June 23, 2024 9:4 1am Hidradenitis suppurativa July 15 9:11am Hidradenitis suppurativa August 22, 2024 2:24pm Petechial rash August 22, 2024 2:24p m PAF (paroxysmal atrial fibrillation) Aug 8:12am Hyperlipidemia September 19, 2024 8:12 am Presence of permanent cardiac pacemaker September 19, 2024 8:12am History of aortic valve replacement with bioprosthetic valve September 19, 2024 8:12am History of tricuspid valve repair August 232024 8:12am Complete heart block, post-surgical September 19, 2024 8:13am Pacemaker September 19, 2024 8:13 am Chief Complaint Admit Date BUTTOCK ABSCESS- DISCUSS PERMANENT EXCIS ION June 15, 2024 12:39pm Pacer Check Remote June 16, 2024 1:1 3am WOUND CHECK June 23, 2024 9:41 am PILONIDAL CYST July 15, 2024 9:1 1am ALSO E-ORDER PT NOT FASTING August 12, 2024 1:19pm DISCUSS JOINT PILONIDAL SURGERY WITH DR KING August 22, 2024 2:24pm Calculus of gallbladder without cholecys titis with September 02, 2024 7:38am Pacer Check Remote September 15, 2024 1:36 am 8 M FU PPM f/u @ 9 September 19, 2024 8:12 am Annual in-clinic f/u Sees KRR @ 8:30 Aug 8:13am Pacer Check Remote September 19, 2024 9:00 am Chief Complaint Admit Date WOUND CHECK June 23, 2024 9:41 am PILONIDAL CYST July 15, 2024 9:1 1am ALSO E-ORDER PT NOT FASTING August 12, 2024 1:19pm DISCUSS JOINT PILONIDAL SURGERY WITH DR KING August 22, 2024 2:24pm Calculus of gallbladder without cholecys titis with September 02, 2024 7:38am Pacer Check Remote September 15, 2024 1:36 am 8 M FU PPM f/u @ 9 September 19, 2024 8:12 am Annual in-clinic f/u Sees KRR @ 8:30 Aug 8:13am Pacer Check Remote September 19, 2024 9:00 am NORMAL BATTERY DEPLETION October 11, 2024 8:58am NORMAL BATTERY DEPLETION October 11, 2024 12:13pm Reason for Visit Admit Date Left buttock abscess June 23, 2024 9:4 1am Hidradenitis suppurativa July 15 9:11am Hidradenitis suppurativa August 22, 2024 2:24pm Petechial rash August 22, 2024 2:24p m PAF (paroxysmal atrial fibrillation) Aug 8:12am Hyperlipidemia September 19, 2024 8:12 am Presence of permanent cardiac pacemaker September 19, 2024 8:12am History of aortic valve replacement with bioprosthetic valve September 19, 2024 8:12am History of tricuspid valve repair August 232024 8:12am Complete heart block, post-surgical September 19, 2024 8:13am Pacemaker September 19, 2024 8:13 am Chief Complaint Admit Date WOUND CHECK June 23, 2024 9:41 am PILONIDAL CYST July 15, 2024 9:1 1am ALSO E-ORDER PT NOT FASTING August 12, 2024 1:19pm DISCUSS JOINT PILONIDAL SURGERY WITH DR KING August 22, 2024 2:24pm Calculus of gallbladder without cholecys titis with September 02, 2024 7:38am Pacer Check Remote September 15, 2024 1:36 am 8 M FU PPM f/u @ 9 September 19, 2024 8:12 am Annual in-clinic f/u Sees KRR @ 8:30 Aug 8:13am Pacer Check Remote September 19, 2024 9:00 am NORMAL BATTERY DEPLETION October 11, 2024 8:58am NORMAL BATTERY DEPLETION October 11, 2024 12:13pm 1 wk s/p TRAINMAN-P generator change September 8:23am Reason for Visit Admit Date Left buttock abscess June 23, 2024 9:4 1am Hidradenitis suppurativa July 15 9:11am Hidradenitis suppurativa August 22, 2024 2:24pm Petechial rash August 22, 2024 2:24p m PAF (paroxysmal atrial fibrillation) Aug 8:12am Hyperlipidemia September 19, 2024 8:12 am Presence of permanent cardiac pacemaker September 19, 2024 8:12am History of aortic valve replacement with bioprosthetic valve September 19, 2024 8:12am History of tricuspid valve repair August 232024 8:12am Complete heart block, post-surgical September 19, 2024 8:13am Pacemaker September 19, 2024 8:13 am Complete heart block, post-surgical October 18, 2024 8:23am Pacemaker October 18, 2024 8:23 am Chief Complaint Admit Date PILONIDAL CYST July 15, 2024 9:1 1am ALSO E-ORDER PT NOT FASTING August 12, 2024 1:19pm DISCUSS JOINT PILONIDAL SURGERY WITH DR KING August 22, 2024 2:24pm Calculus of gallbladder without cholecys titis with September 02, 2024 7:38am Pacer Check Remote September 15, 2024 1:36 am 8 M FU PPM f/u @ 9 September 19, 2024 8:12 am Annual in-clinic f/u Sees KRR @ 8:30 Aug 8:13am Pacer Check Remote September 19, 2024 9:00 am NORMAL BATTERY DEPLETION October 11, 2024 8:58am NORMAL BATTERY DEPLETION October 11, 2024 12:13pm 1 wk s/p TRAINMAN-P generator change September 8:23am Pacer Check Remote October 18, 2024 9:00 am Reason for Visit Admit Date Hidradenitis suppurativa July 15 9:11am Hidradenitis suppurativa August 22, 2024 2:24pm Petechial rash August 22, 2024 2:24p m PAF (paroxysmal atrial fibrillation) Aug 8:12am Hyperlipidemia September 19, 2024 8:12 am Presence of permanent cardiac pacemaker September 19, 2024 8:12am History of aortic valve replacement with bioprosthetic valve September 19, 2024 8:12am History of tricuspid valve repair August 232024 8:12am Complete heart block, post-surgical September 19, 2024 8:13am Pacemaker September 19, 2024 8:13 am Complete heart block, post-surgical October 18, 2024 8:23am Pacemaker October 18, 2024 8:23 am Chief Complaint Admit Date PILONIDAL CYST July 15, 2024 9:1 1am ALSO E-ORDER PT NOT FASTING August 12, 2024 1:19pm DISCUSS JOINT PILONIDAL SURGERY WITH DR KING August 22, 2024 2:24pm Calculus of gallbladder without cholecys titis with September 02, 2024 7:38am Pacer Check Remote September 15, 2024 1:36 am 8 M FU PPM f/u @ 9 September 19, 2024 8:12 am Annual in-clinic f/u Sees KRR @ 8:30 Aug 8:13am Pacer Check Remote September 19, 2024 9:00 am NORMAL BATTERY DEPLETION October 11, 2024 8:58am NORMAL BATTERY DEPLETION October 11, 2024 12:13pm 1 wk s/p TRAINMAN-P generator change September 8:23am Pacer Check Remote October 18, 2024 9:00 am AORTIC STENOSIS November 07, 2024 12 :41pm Amb Documentation November 08, 2024 3: 13pm Chief Complaint Admit Date ALSO E-ORDER PT NOT FASTING August 12, 2024 1:19pm DISCUSS JOINT PILONIDAL SURGERY WITH DR KING August 22, 2024 2:24pm Calculus of gallbladder without cholecys titis with September 02, 2024 7:38am Pacer Check Remote September 15, 2024 1:36 am 8 M FU PPM f/u @ 9 September 19, 2024 8:12 am Annual in-clinic f/u Sees KRR @ 8:30 Aug 8:13am Pacer Check Remote September 19, 2024 9:00 am NORMAL BATTERY DEPLETION October 11, 2024 8:58am NORMAL BATTERY DEPLETION October 11, 2024 12:13pm 1 wk s/p TRAINMAN-P generator change September 8:23am Pacer Check Remote October 18, 2024 9:00 am AORTIC STENOSIS November 07, 2024 12 :41pm Amb Documentation November 08, 2024 3: 13pm SKIN ABSCESS November 16, 2024 2: 26pm Reason for Visit Admit Date Hidradenitis suppurativa August 22, 2024 2:24pm Petechial rash August 22, 2024 2:24p m PAF (paroxysmal atrial fibrillation) Aug 8:12am Hyperlipidemia September 19, 2024 8:12 am Presence of permanent cardiac pacemaker September 19, 2024 8:12am History of aortic valve replacement with bioprosthetic valve September 19, 2024 8:12am History of tricuspid valve repair August 232024 8:12am Complete heart block, post-surgical September 19, 2024 8:13am Pacemaker September 19, 2024 8:13 am Complete heart block, post-surgical October 18, 2024 8:23am Pacemaker October 18, 2024 8:23 am Chief Complaint Admit Date Calculus of gallbladder without cholecys titis with September 02, 2024 7:38am Pacer Check Remote September 15, 2024 1:36 am 8 M FU PPM f/u @ 9 September 19, 2024 8:12 am Annual in-clinic f/u Sees KRR @ 8:30 Aug 8:13am Pacer Check Remote September 19, 2024 9:00 am NORMAL BATTERY DEPLETION October 11, 2024 8:58am NORMAL BATTERY DEPLETION October 11, 2024 12:13pm 1 wk s/p TRAINMAN-P generator change September 8:23am Pacer Check Remote October 18, 2024 9:00 am AORTIC STENOSIS November 07, 2024 12 :41pm Amb Documentation November 08, 2024 3: 13pm SKIN ABSCESS November 16, 2024 2: 26pm Reason for Visit Admit Date PAF (paroxysmal atrial fibrillation) Aug 8:12am Hyperlipidemia September 19, 2024 8:12 am Presence of permanent cardiac pacemaker September 19, 2024 8:12am History of aortic valve replacement with bioprosthetic valve September 19, 2024 8:12am History of tricuspid valve repair August 232024 8:12am Complete heart block, post-surgical September 19, 2024 8:13am Pacemaker September 19, 2024 8:13 am Complete heart block, post-surgical October 18, 2024 8:23am Pacemaker October 18, 2024 8:23 am Additional Source Comments (unrecognized sect ion and content) No Status Records FoundNo Status Records FoundNo Status Records FoundNo Status Records FoundNo Status Records FoundNo Status Records Found INFORMATION SOURCE (unrecogn ized section and content) DATE CREATED AUTHOR 09/11/2017 [facility] DATE CREATED AUTHOR AUTHOR'S ORGANIZ ATION 09/16/2017 [facility] DATE CREATED AUTHOR AUTHOR'S ORGANIZ ATION 03/14/2018 [facility] DATE CREATED AUTHOR AUTHOR'S ORGANIZ ATION 05/13/2018 [facility] DATE CREATED AUTHOR AUTHOR'S ORGANIZ ATION 06/27/2024 [facility] DATE CREATED AUTHOR AUTHOR'S ORGANIZ ATION 01/28/2025 [facility] Goals (unrecognized section and content) Goals may be documented in a n alternate sectionGoals may be documented in an alternate sectionGoals may be documented in an alternate sectionGoals may be documented in an alternate sectionGoals may be documented in an alternate sectionGoals may be documented in an alternate sectionGoals may be documented in an alternate sectionGoals may be documented in an alternate sectionGoals may be documented in an alternate sectionGoals may be documented in an alternate sectionGoals may be documented in an alternate sectionGoals may be documented in an alternate sectionGoals may be documented in an alternate sectionGoals may be documented in an alternate sectionGoals may be documented in an alternate sectionGoals may be documented in an alternate sectionGoals may be documented in an alternate sectionGoals may be documented in an alternate sectionGoals may be documented in an alternate sectionGoals may be documented in an alternate sectionGoals may be documented in an alternate sectionGoals may be documented in an alternate sectionGoals may be documented in an alternate sectionGoals may be documented in an alternate sectionGoals may be documented in an alternate sectionGoals may be documented in an alternate sectionGoals may be documented in an alternate section Care Teams (unrecognized sec tion and content) Team Status: Active Member Role Status Dates Dr. Gracy Shin , DO Family Provider Active Dr. Gracy Shin , DO Primary Care Provider Active Team Status: Inactive Member Role Status Dates Dr. Gracy Shin DO Primary Care Provider Active Dr. Ambrocio Whitaker MD Attending Provider, Referring Provider Active Team Status: Inactive Member Role Status Dates Dr. Gracy Shin , DO Primary Care Provider, Referrin g Provider Active Dr. Kev Denny MD Attending Provider Active Team Status: Inactive Member Role Status Dates Dr. Gracy Shin , DO Primary Care Provider, Referrin g Provider Active Suzanne Cid PA, PA Attending Provider Active Team Status: Inactive Member Role Status Dates Dr. Gracy Shin DO Primary Care Provider Active Radha Guzman Active Dr. Ambrocio Whitaker MD Attending Provider, Referring Provider Active Team Status: Inactive Member Role Status Dates Dr. Gracy Shin DO Primary Care Provider Active Suzanne DANIEL, PA Attending Provider Active Team Status: Inactive Member Role Status Dates Dr. Gracy Shin DO Primary Care Provider, Attendin g Provider Active Dr. Al Ramirez MD Referring Provider Active Dr. Ambrocio Whitaker MD Other Provider Active Team Status: Inactive Member Role Status Dates Dr. Gracy Shin DO Primary Care Provider Active Radha Guzman Active Dr. Carlin Wilde MD Attending Provider, Referring Pro vider Active Team Status: Inactive Member Role Status Dates Dr. Gracy Shin DO Primary Care Provider Active Dr. Ramos Andrews MD Attending Provider, Emergency Pro vider Active Team Status: Inactive Member Role Status Dates Dr. Gracy Shin DO Primary Care Provider Active Dr. Frank Oh MD Attending Provider, Emergency Provider Active Team Status: Inactive Member Role Status Dates Dr. Gracy Shin DO Primary Care Provider Active Suzanne DANIEL, PA Attending Provider, Referr ing Provider Active Dr. Al Ramirez MD Other Provider Active Team Status: Active Member Role Status Dates Dr. Gracy Shin DO Primary Care Provider Active Dr. Loki Baker , DO Attending Provider, Referrin g Provider Active Team Status: Inactive Member Role Status Dates Dr. Gracy Shin DO Primary Care Provider Active Dr. Loki Baker , DO Attending Provider, Referrin g Provider Active Team Status: Inactive Member Role Status Dates Dr. Gracy Shin DO Primary Care Provider, Referrin g Provider Active Radha Guzman Attending Provider Active Team Status: Inactive Member Role Status Dates Dr. Gracy Shin , DO Primary Care Provider Active Tianna DANIEL, PA-C Attending Provider Active Self Referred Referring Provider Active Team Status: Inactive Member Role Status Dates Dr. Gracy Shin , DO Primary Care Prov ider, Attending Provider, Referring Provider Active Team Status: Active Member Role Status Dates Dr. Gracy Shin , DO Primary Care Provider Active Dr. Johann Boss DO Emergency Provider Active Team Status: Active Member Role Status Dates Dr. Gracy Shin , DO Primary Care Provider Active Tiannaac Zazueta PA, PA-C Attending Provider, Referring Provider Active Team Status: Inactive Member Role Status Dates Dr. Gracy Shin , DO Primary Care Provider Active Tiannaac Zazueta PA, PA-C Attending Provider, Referring Provider Active Team Status: Active Member Role Status Dates Dr. Gracy Shin , DO Primary Care Provider Active Dr. Johann Boss DO Emergency Provider Active Dr. Noemí Vela MD Attending Provider Active Team Status: Active Member Role Status Dates Dr. Gracy Shin , DO Primary Care Provider Active Dr. Johann Boss DO Emergency Provider Active Dr. Noemí Vela MD Admit Provider, Attending Prov ider Active Team Status: Active Member Role Status Dates Dr. Gracy Shin , DO Primary Care Provider Active Dr. Johann Boss DO Emergency Provider Active Dr. Noemí Vela MD Admit Provider, Other Provider Active Dr. Larry Dunbar , DO Other Provider Active Dr. Al Ramirez MD Other Provider Active Dr. César Fay , DO Attending Provider Active Team Status: Active Member Role Status Dates Dr. Gracy Shin , DO Primary Care Provider Active Dr. Johann Boss DO Emergency Provider Active Dr. Noemí Vela MD Admit Provider, Other Provider Active Dr. Larry Dunbar , DO Attending Provider, Other Provider Active Dr. Al Ramirez MD Other Provider Active Team Status: Inactive Member Role Status Dates Dr. Gracy Shin , DO Primary Care Provider Active Dr. Johann Boss DO Emergency Provider Active Dr. Noemí Vela MD Admit Provider, Other Provider Active Dr. Larry Dunbar , DO Attending Provider Active Dr. Al Ramirez MD Other Provider Active Team Status: Inactive Member Role Status Dates Dr. Gracy Shin , DO Primary Care Provider Active Dr. Al Ramirez MD Attending Provider, Referri ng Provider Active Team Status: Active Member Role Status Dates Dr. Gracy Shin DO Primary Care Provider Active Dr. Johann Boss , DO Emergency Provider Active Dr. Noemí Vela MD Admit Provider, Other Provider Active Dr. Larry Dunbar , DO Referring Provider, Other Provider Active Dr. Al Ramirez MD Other Provider Active Dr. César Fay , DO Attending Provider Active Team Status: Inactive Member Role Status Dates Dr. Gracy Shin DO Primary Care Provider Active Dr. Carlin Wilde MD Attending Provider Active Team Status: Inactive Member Role Status Dates Dr. Gracy Shin DO Primary Care Provider Active Dr. Ramos Andrews MD Emergency Provider Active Team Status: Inactive Member Role Status Dates Dr. Gracy Shin DO Primary Care Provider, Attendin g Provider Active Team Status: Inactive Member Role Status Dates Dr. Gracy Shin DO Primary Care Provider Active Dr. Al Ramirez MD Attending Provider, Referri ng Provider Active Suzanne Cid PA, PA Other Provider Active Team Status: Active Member Role Status Dates Dr. Gracy Shin DO Primary Care Provider Active Dr. Carlin Wilde MD Attending Provider Active Team Status: Active Member Role Status Dates Dr. Gracy Shin DO Primary Care Provider Active Nguyen Montemayor ORE FEEDER, ORE FEEDER-C Attending Provider, Referring P rovider Active Team Status: Active Member Role Status Dates Dr. Gracy Shin DO Primary Care Provider Active Nguyen Montemayor ORE FEEDER, ORE FEEDER-C Attending Provider Active Team Status: Inactive Member Role Status Dates Dr. Gracy Shin DO Primary Care Provider Active Nguyen Montemayor ORE FEEDER, ORE FEEDER-C Attending Provider, Referring P rovider Active Legal Internship Relationship Specialty Start Date End Date Gracy Shin DO [address] [place] [address] PCP - General Family Medicine 01/01/18 Kenji Ruiz MD [address] [place] [address] Primary Staff Physician Cardiology 06/08/18 [facility] 12/30/17 Team Status: Inactive Member Role Status Dates Dr. Gracy Shin DO Primary Care Provider, Referrin g Provider Active Nguyen Montemayor ORE FEEDER, ORE FEEDER-C Attending Provider Active Team Status: Active Member Role Status Dates Dr. Gracy Shin DO Primary Care Provider Active Dr. Carlin Wilde MD Attending Provider Active Nguyen Montemayor ORE FEEDER, ORE FEEDER-C Referring Provider Active Team Status: Inactive Member Role Status Dates Dr. Gracy Shin DO Primary Care Provider Active Dr. Carlin Wilde MD Attending Provider, Referring Pro vider Active Team Status: Inactive Member Role Status Dates Dr. Gracy Shin DO Primary Care Provider Active Nguyen Montemayor ORE FEEDER, ORE FEEDER-C Referring Provider, Other Provi tyler Active Dr. Al Ramirez MD Attending Provider Active Legal Internship Relationship Specialty Start Date End Date Gracy Shin DO [address] [facility] [address] PCP - General Family Medicine 01/01/18 Kenji Ruiz MD [address] [place] [address] Primary Staff Physician Cardiology 06/08/18 [facility] 12/30/17 Team Status: Inactive Member Role Status Dates Dr. Gracy Shin DO Primary Care Provider Active MARÍA Aldrich Attending Provider, Referring Provide r Active Team Status: Active Member Role Status Dates Dr. Gracy Shin DO Primary Care Provider Active Team Status: Inactive Member Role Status Dates Dr. Gracy Shin DO Primary Care Provider Active Start: March 04, 2024 End: March 04, 2024 Dr. Grcay Shin DO Referring Provider Active Start: March 04, 2024 End: March 04, 2024 Dr. Tani Alford MD Attending Provider Active Start: March 04, 2024 End: March 04, 2024 Team Status: Inactive Member Role Status Dates Dr. Gracy Shin DO Primary Care Provider Active Start: March 17, 2024 End: March 17, 2024 Dr. Carlin Wilde MD Attending Provider Active S tart: March 17, 2024 End: March 17, 2024 Dr. Carlin Wilde MD Referring Provider Active S tart: March 17, 2024 End: March 17, 2024 Team Status: Active Member Role Status Dates Dr. Gracy Shin DO Primary Care Provider Active Start: March 25, 2024 End: March 25, 2024 Dr. Carlin Wilde MD Attending Provider Active S tart: March 25, 2024 End: March 25, 2024 Dr. Binu Brannon MD Referring Provider Active Start: March 25, 2024 End: March 25, 2024 Team Status: Inactive Member Role Status Dates Dr. Gracy Shin DO Primary Care Provider Active Start: April 03, 2024 End: April 03, 2024 Dr. Alex Jones DO Attending Provider Active S tart: April 03, 2024 End: April 03, 2024 Dr. Alex Jones DO Emergency Provider Active S tart: April 03, 2024 End: April 03, 2024 Team Status: Inactive Member Role Status Dates Dr. Gracy Shin DO Primary Care Provider Active Start: April 08, 2024 End: April 10, 2024 Dr. Binu Brannon MD Admit Provider Active Start: April 08, 2024 End: April 10, 2024 Dr. Binu Brannon MD Attending Provider Active Start: April 08, 2024 End: April 10, 2024 Dr. Binu Brannon MD Referring Provider Active Start: April 08, 2024 End: April 10, 2024 Dr. Loki Raines MD Other Provider Active Start: April 08, 2024 End: April 10, 2024 Dr. Loki Raines MD Other Provider Active Start: April 08, 2024 Team Status: Active Member Role Status Dates Dr. Gracy Shin DO Primary Care Provider Active Start: April 10, 2024 Dr. Binu Brannon MD Admit Provider Active Start: April 10, 2024 Dr. Binu Brannon MD Other Provider Active Start: April 10, 2024 Dr. Loki Raines MD Attending Provider Active Start: April 10, 2024 Dr. Loki Raines MD Other Provider Active Start: April 10, 2024 Team Status: Inactive Member Role Status Dates Dr. Gracy Shin DO Primary Care Provider Active Start: April 25, 2024 End: April 25, 2024 Dr. Al Ramirez MD Attending Provider Active Start: April 25, 2024 End: April 25, 2024 Dr. Al Ramirez MD Referring Provider Active Start: April 25, 2024 End: April 25, 2024 Team Status: Inactive Member Role Status Dates Dr. Gracy Shin DO Primary Care Provider Active Start: May 03, 2024 End: May 03, 2024 Dr. Gracy Shin DO Referring Provider Active Start: May 03, 2024 End: May 03, 2024 Dr. Jonel Hernandez DO Attending Provider Active S tart: May 03, 2024 End: May 03, 2024 Team Status: Inactive Member Role Status Dates Dr. Gracy Shin DO Primary Care Provider Active Start: May 13, 2024 End: May 13, 2024 Dr. Jonel Hernandez DO Attending Provider Active S tart: May 13, 2024 End: May 13, 2024 Dr. Jonel Hernandez DO Referring Provider Active S tart: May 13, 2024 End: May 13, 2024 Team Status: Active Member Role Status Dates Dr. Gracy Shin DO Primary Care Provider Active Start: May 16, 2024 Dr. Jonel Hernandez DO Attending Provider Active S tart: May 16, 2024 Dr. Jonel Hernandez DO Referring Provider Active S tart: May 16, 2024 Dr. Jonel Hernandez DO Other Provider Active Start : May 16, 2024 Team Status: Inactive Member Role Status Dates Dr. Gracy Shin DO Primary Care Provider Active Start: May 17, 2024 End: May 17, 2024 Dr. Jonel Hernandez DO Attending Provider Active S tart: May 17, 2024 End: May 17, 2024 Dr. Jonel Hernandez DO Referring Provider Active S tart: May 17, 2024 End: May 17, 2024 Team Status: Inactive Member Role Status Dates Dr. Gracy Shin DO Primary Care Provider Active Start: June 15, 2024 End: June 15, 2024 Dr. Gracy Shin DO Referring Provider Active Start: June 15, 2024 End: June 15, 2024 Dr. Birdie Hernandes MD Attending Provider Active Start: June 15, 2024 End: June 15, 2024 Team Status: Inactive Member Role Status Dates Dr. Gracy Shin DO Primary Care Provider Active Start: June 15, 2024 End: June 15, 2024 Dr. Birdie Hernandes MD Attending Provider Active Start: June 15, 2024 End: June 15, 2024 Dr. Birdie Hernandes MD Referring Provider Active Start: June 15, 2024 End: June 15, 2024 Team Status: Inactive Member Role Status Dates Dr. Gracy Shin DO Primary Care Provider Active Start: June 16, 2024 End: June 16, 2024 Dr. Carlin Wilde MD Attending Provider Active S tart: June 16, 2024 End: June 16, 2024 Dr. Carlin Wilde MD Referring Provider Active S tart: June 16, 2024 End: June 16, 2024 Team Status: Inactive Member Role Status Dates Dr. Gracy Shin DO Primary Care Provider Active Start: June 23, 2024 End: June 23, 2024 Dr. Gracy Shin DO Referring Provider Active Start: June 23, 2024 End: June 23, 2024 Tianna DANIEL PA-C Attending Provider Active Start: June 23, 2024 End: June 23, 2024 Team Status: Inactive Member Role Status Dates Dr. Gracy Shin DO Primary Care Provider Active Start: July 15, 2024 End: July 15, 2024 Dr. Gracy Shin DO Referring Provider Active Start: July 15, 2024 End: July 15, 2024 Dr. Vasyl King MD Attending Provider Active Start: July 15, 2024 End: July 15, 2024 Team Status: Inactive Member Role Status Dates Dr. Gracy Shni DO Primary Care Provider Active Start: July 15, 2024 End: July 15, 2024 Dr. Al Ramirez MD Attending Provider Active Start: July 15, 2024 End: July 15, 2024 Dr. Al Ramirez MD Referring Provider Active Start: July 15, 2024 End: July 15, 2024 Mikala Choudhury Other Provider Active Start: 2024 End: July 15, 2024 Team Status: Inactive Member Role Status Dates Dr. Gracy Shin DO Primary Care Provider Active Start: August 12, 2024 End: August 12, 2024 Dr. Gracy Shin DO Attending Provider Active Start: August 12, 2024 End: August 12, 2024 Dr. Tani Alford MD Referring Provider Active Start: August 12, 2024 End: August 12, 2024 Team Status: Inactive Member Role Status Dates Dr. Gracy Shin DO Primary Care Provider Active Start: August 22, 2024 End: August 22, 2024 Dr. Gracy Shin DO Referring Provider Active Start: August 22, 2024 End: August 22, 2024 Dr. Birdie Hernandes MD Attending Provider Active Start: August 22, 2024 End: August 22, 2024 Team Status: Inactive Member Role Status Dates Dr. Gracy Shin DO Primary Care Provider Active Start: August 23, 2024 End: August 23, 2024 Dr. Pipe Romero MD Attending Provider Active S tart: August 23, 2024 End: August 23, 2024 Dr. Pipe Romero MD Referring Provider Active S tart: August 23, 2024 End: August 23, 2024 Team Status: Active Member Role Status Dates Dr. Gracy Shin DO Primary Care Provider Active Start: September 02, 2024 Dr. Tani Alford MD Attending Provider Active Start: September 02, 2024 Dr. Tani Alford MD Referring Provider Active Start: September 02, 2024 Team Status: Inactive Member Role Status Dates Dr. Gracy Shin DO Primary Care Provider Active Start: September 02, 2024 End: September 02, 2024 Dr. Tani Alford MD Attending Provider Active Start: September 02, 2024 End: September 02, 2024 Dr. Tani Alford MD Referring Provider Active Start: September 02, 2024 End: September 02, 2024 Team Status: Active Member Role/Relationship Status Dates Dr. Gracy Shin DO Primary Care Provider Active Team Status: Inactive Member Role/Relationship Status Dates Dr. Gracy Shin DO Primary Care Provider Active Start: June 15, 2024 End: March 26th, 202Janeth Shin DO Referring Provider Active Start: June 15, 2024 End: June 15, 2024 Dr. Birdie Hernandes MD Attending Provider Active Start: June 15, 2024 End: June 15, 2024 Team Status: Inactive Member Role/Relationship Status Dates Dr. Gracy Shin DO Primary Care Provider Active Start: June 15, 2024 End: June 15, 2024 Dr. Birdie Hernandes MD Attending Provider Active Start: June 15, 2024 End: June 15, 2024 Dr. Birdie Hernandes MD Referring Provider Active Start: June 15, 2024 End: June 15, 2024 Team Status: Inactive Member Role/Relationship Status Dates Dr. Gracy Shin DO Primary Care Provider Active Start: June 16, 2024 End: June 16, 2024 Dr. Carlin Wilde MD Attending Provider Active S tart: June 16, 2024 End: June 16, 2024 Dr. Carlin Wilde MD Referring Provider Active S tart: June 16, 2024 End: June 16, 2024 Team Status: Inactive Member Role/Relationship Status Dates Dr. Gracy Shin DO Primary Care Provider Active Start: June 23, 2024 End: June 23, 2024 Dr. Gracy Shin DO Referring Provider Active Start: June 23, 2024 End: June 23, 2024 Tianna DANIEL PA-C Attending Provider Active Start: June 23, 2024 End: June 23, 2024 Team Status: Inactive Member Role/Relationship Status Dates Dr. Gracy Shin DO Primary Care Provider Active Start: July 15, 2024 End: July 15, 2024 Dr. Gracy Shin DO Referring Provider Active Start: July 15, 2024 End: July 15, 2024 Dr. Vasyl King MD Attending Provider Active Start: July 15, 2024 End: July 15, 2024 Team Status: Inactive Member Role/Relationship Status Dates Dr. Gracy Sihn DO Primary Care Provider Active Start: July 15, 2024 End: July 15, 2024 Dr. Al Ramirez MD Attending Provider Active Start: July 15, 2024 End: July 15, 2024 Dr. Al Ramirez MD Referring Provider Active Start: July 15, 2024 End: July 15, 2024 Mikala Choudhury Other Provider Active Start: 2024 End: July 15, 2024 Team Status: Inactive Member Role/Relationship Status Dates Dr. Gracy Shin DO Primary Care Provider Active Start: August 12, 2024 End: August 12, 2024 Dr. Gracy Shin DO Attending Provider Active Start: August 12, 2024 End: August 12, 2024 Dr. Tani Alford MD Referring Provider Active Start: August 12, 2024 End: August 12, 2024 Team Status: Inactive Member Role/Relationship Status Dates Dr. Gracy Shin DO Primary Care Provider Active Start: August 22, 2024 End: August 22, 2024 Dr. Gracy Shin DO Referring Provider Active Start: August 22, 2024 End: August 22, 2024 Dr. Birdie Hernandes MD Attending Provider Active Start: August 22, 2024 End: August 22, 2024 Team Status: Inactive Member Role/Relationship Status Dates Dr. Gracy Shin DO Primary Care Provider Active Start: August 23, 2024 End: August 23, 2024 Dr. Pipe Romero MD Attending Provider Active S tart: August 23, 2024 End: August 23, 2024 Dr. Pipe Romero MD Referring Provider Active S tart: August 23, 2024 End: August 23, 2024 Team Status: Inactive Member Role/Relationship Status Dates Dr. Gracy Shin DO Primary Care Provider Active Start: September 02, 2024 End: September 02, 2024 Dr. Tani Alford MD Attending Provider Active Start: September 02, 2024 End: September 02, 2024 Dr. Tani Alford MD Referring Provider Active Start: September 02, 2024 End: September 02, 2024 Team Status: Inactive Member Role/Relationship Status Dates Dr. Gracy Shin DO Primary Care Provider Active Start: September 15, 2024 End: September 15, 2024 Dr. Carlin Wilde MD Attending Provider Active S tart: September 15, 2024 End: September 15, 2024 Team Status: Inactive Member Role/Relationship Status Dates Dr. Gracy Shin DO Primary Care Provider Active Start: September 19, 2024 End: September 19, 2024 Dr. Gracy Shin DO Referring Provider Active Start: September 19, 2024 End: September 19, 2024 Nguyen Montemayor ORE FEEDER, ORE FEEDER-C Attending Provider Active Start: September 19, 2024 End: September 19, 2024 Team Status: Active Member Role/Relationship Status Dates Dr. Gracy Shin DO Primary Care Provider Active Start: September 19, 2024 Dr. Gracy Shin DO Referring Provider Active Start: September 19, 2024 Radha Guzman Attending Provider Active Start: 2024 Team Status: Inactive Member Role/Relationship Status Dates Dr. Gracy Shin DO Primary Care Provider Active Start: September 19, 2024 End: September 19, 2024 Dr. Gracy Shin DO Referring Provider Active Start: September 19, 2024 End: September 19, 2024 Radha Guzman Attending Provider Active Start: 2024 End: September 19, 2024 Team Status: Active Member Role/Relationship Status Dates Dr. Gracy Shin DO Primary Care Provider Active Start: September 19, 2024 Nguyen Montemayor ORE FEEDER, ORE FEEDER-C Attending Provider Active Start: September 19, 2024 Nguyen Montemayor ORE FEEDER, ORE FEEDER-C Referring Provider Active Start: September 19, 2024 Team Status: Inactive Member Role/Relationship Status Dates Dr. Gracy Shin DO Primary Care Provider Active Start: September 19, 2024 End: September 19, 2024 Nguyen Montemayor ORE FEEDER, ORE FEEDER-C Attending Provider Active Start: September 19, 2024 End: September 19, 2024 Nguyen Montemayor ORE FEEDER, ORE FEEDER-C Referring Provider Active Start: September 19, 2024 End: September 19, 2024 Team Status: Inactive Member Role/Relationship Status Dates Dr. Gracy Shin DO Primary Care Provider Active Start: September 19, 2024 End: September 19, 2024 Dr. Carlin Wilde MD Attending Provider Active S tart: September 19, 2024 End: September 19, 2024 Team Status: Inactive Member Role/Relationship Status Dates Dr. Gracy Shin DO Primary Care Provider Active Start: September 19, 2024 End: September 19, 2024 Nguyen Montemayor ORE FEEDER, ORE FEEDER-C Attending Provider Active Start: September 19, 2024 End: September 19, 2024 Nguyen Montemayor ORE FEEDER, ORE FEEDER-C Referring Provider Active Start: September 19, 2024 End: September 19, 2024 Team Status: Inactive Member Role/Relationship Status Dates Dr. Gracy Shin DO Primary Care Provider Active Start: September 26, 2024 End: September 26, 2024 Nguyen Montemayor ORE FEEDER, ORE FEEDER-C Attending Provider Active Start: September 26, 2024 End: September 26, 2024 Nguyen Montemayor ORE FEEDER, ORE FEEDER-C Referring Provider Active Start: September 26, 2024 End: September 26, 2024 Team Status: Inactive Member Role/Relationship Status Dates Dr. Gracy Shin DO Primary Care Provider Active Start: June 23, 2024 End: June 23, 2024 Dr. Gracy Shin DO Referring Provider Active Start: June 23, 2024 End: June 23, 2024 Tianna DANIEL PA-C Attending Provider Active Start: June 23, 2024 End: June 23, 2024 Team Status: Inactive Member Role/Relationship Status Dates Dr. Gracy Shin DO Primary Care Provider Active Start: July 15, 2024 End: July 15, 2024 Dr. Gracy Shin DO Referring Provider Active Start: July 15, 2024 End: July 15, 2024 Dr. Vasyl King MD Attending Provider Active Start: July 15, 2024 End: July 15, 2024 Team Status: Inactive Member Role/Relationship Status Dates Dr. Gracy Shin DO Primary Care Provider Active Start: July 15, 2024 End: July 15, 2024 Dr. Al Ramirez MD Attending Provider Active Start: July 15, 2024 End: July 15, 2024 Dr. Al Ramirez MD Referring Provider Active Start: July 15, 2024 End: July 15, 2024 Mikala Choudhury Other Provider Active Start: 2024 End: July 15, 2024 Team Status: Inactive Member Role/Relationship Status Dates Dr. Gracy Shin DO Primary Care Provider Active Start: August 12, 2024 End: August 12, 2024 Dr. Gracy Shin DO Attending Provider Active Start: August 12, 2024 End: August 12, 2024 Dr. Tani Alford MD Referring Provider Active Start: August 12, 2024 End: August 12, 2024 Team Status: Inactive Member Role/Relationship Status Dates Dr. Gracy Shin DO Primary Care Provider Active Start: August 22, 2024 End: August 22, 2024 Dr. Gracy Shin DO Referring Provider Active Start: August 22, 2024 End: August 22, 2024 Dr. Birdie Hernandes MD Attending Provider Active Start: August 22, 2024 End: August 22, 2024 Team Status: Inactive Member Role/Relationship Status Dates Dr. Gracy Shin DO Primary Care Provider Active Start: August 23, 2024 End: August 23, 2024 Dr. Pipe Romero MD Attending Provider Active S tart: August 23, 2024 End: August 23, 2024 Dr. Pipe Romero MD Referring Provider Active S tart: August 23, 2024 End: August 23, 2024 Team Status: Inactive Member Role/Relationship Status Dates Dr. Gracy Shin DO Primary Care Provider Active Start: September 02, 2024 End: September 02, 2024 Dr. Tani Alford MD Attending Provider Active Start: September 02, 2024 End: September 02, 2024 Dr. Tani Alford MD Referring Provider Active Start: September 02, 2024 End: September 02, 2024 Team Status: Inactive Member Role/Relationship Status Dates Dr. Gracy Shin DO Primary Care Provider Active Start: September 15, 2024 End: September 15, 2024 Dr. Carlin Wilde MD Attending Provider Active S tart: September 15, 2024 End: September 15, 2024 Dr. Carlin Wilde MD Referring Provider Active S tart: September 15, 2024 End: September 15, 2024 Team Status: Inactive Member Role/Relationship Status Dates Dr. Gracy Shin DO Primary Care Provider Active Start: September 19, 2024 End: September 19, 2024 Dr. Gracy Shin DO Referring Provider Active Start: September 19, 2024 End: September 19, 2024 Nguyen Montemayor ORE FEEDER, ORE FEEDER-C Attending Provider Active Start: September 19, 2024 End: September 19, 2024 Team Status: Inactive Member Role/Relationship Status Dates Dr. Gracy Shin DO Primary Care Provider Active Start: September 19, 2024 End: September 19, 2024 Dr. Carlin Wilde MD Attending Provider Active S tart: September 19, 2024 End: September 19, 2024 Dr. Carlin Wilde MD Referring Provider Active S tart: September 19, 2024 End: September 19, 2024 Team Status: Inactive Member Role/Relationship Status Dates Dr. Gracy Shin DO Primary Care Provider Active Start: September 19, 2024 End: September 19, 2024 Dr. Carlin Wilde MD Attending Provider Active S tart: September 19, 2024 End: September 19, 2024 Team Status: Inactive Member Role/Relationship Status Dates Dr. Gracy Shin DO Primary Care Provider Active Start: September 19, 2024 End: September 19, 2024 Nguyen Montemayor ORE FEEDER, ORE FEEDER-C Attending Provider Active Start: September 19, 2024 End: September 19, 2024 Nguyen Montemayor ORE FEEDER, ORE FEEDER-C Referring Provider Active Start: September 19, 2024 End: September 19, 2024 Team Status: Inactive Member Role/Relationship Status Dates Dr. Gracy Shin DO Primary Care Provider Active Start: September 26, 2024 End: September 26, 2024 Nguyen Montemayor ORE FEEDER, ORE FEEDER-C Attending Provider Active Start: September 26, 2024 End: September 26, 2024 Nguyen Montemayor ORE FEEDER, ORE FEEDER-C Referring Provider Active Start: September 26, 2024 End: September 26, 2024 Team Status: Inactive Member Role/Relationship Status Dates Dr. Gracy Shin DO Primary Care Provider Active Start: October 11, 2024 End: October 11, 2024 Dr. Holland Newman MD Attending Provider Active Start: October 11, 2024 End: October 11, 2024 Dr. Holland Newman MD Referring Provider Active Start: October 11, 2024 End: October 11, 2024 Team Status: Active Member Role/Relationship Status Dates Dr. Gracy Shin DO Primary Care Provider Active Start: October 11, 2024 Dr. Holland Newman MD Attending Provider Active Start: October 11, 2024 Dr. Holland Newman MD Referring Provider Active Start: October 11, 2024 Dr. Holland Newman MD Other Provider Active Start: October 11, 2024 Team Status: Inactive Member Role/Relationship Status Dates Dr. Gracy Shin DO Primary Care Provider Active Start: October 18, 2024 End: October 18, 2024 Dr. Gracy Shin DO Referring Provider Active Start: October 18, 2024 End: October 18, 2024 Radha Guzman Attending Provider Active Start: Chip you2024 End: October 18, 2024 Team Status: Inactive Member Role/Relationship Status Dates Dr. Gracy Shin DO Primary Care Provider Active Start: July 15, 2024 End: July 15, 2024 Dr. Gracy Shin DO Referring Provider Active Start: July 15, 2024 End: July 15, 2024 Dr. Vasyl King MD Attending Provider Active Start: July 15, 2024 End: July 15, 2024 Team Status: Inactive Member Role/Relationship Status Dates Dr. Gracy Shin DO Primary Care Provider Active Start: July 15, 2024 End: July 15, 2024 Dr. Al Ramirez MD Attending Provider Active Start: July 15, 2024 End: July 15, 2024 Dr. Al Ramirez MD Referring Provider Active Start: July 15, 2024 End: July 15, 2024 Mikala Valier Other Provider Active Start: 2024 End: July 15, 2024 Team Status: Inactive Member Role/Relationship Status Dates Dr. Gracy Shin DO Primary Care Provider Active Start: August 12, 2024 End: August 12, 2024 Dr. Gracy Shin DO Attending Provider Active Start: August 12, 2024 End: August 12, 2024 Dr. Tani Alford MD Referring Provider Active Start: August 12, 2024 End: August 12, 2024 Team Status: Inactive Member Role/Relationship Status Dates Dr. Gracy Shin DO Primary Care Provider Active Start: August 22, 2024 End: August 22, 2024 Dr. Gracy Shin DO Referring Provider Active Start: August 22, 2024 End: August 22, 2024 Dr. Birdie Hernandes MD Attending Provider Active Start: August 22, 2024 End: August 22, 2024 Team Status: Inactive Member Role/Relationship Status Dates Dr. Gracy Shin DO Primary Care Provider Active Start: August 23, 2024 End: August 23, 2024 Dr. Pipe Romero MD Attending Provider Active S tart: August 23, 2024 End: August 23, 2024 Dr. Pipe Romero MD Referring Provider Active S tart: August 23, 2024 End: August 23, 2024 Team Status: Inactive Member Role/Relationship Status Dates Dr. Gracy Shin DO Primary Care Provider Active Start: September 02, 2024 End: September 02, 2024 Dr. Tani Alford MD Attending Provider Active Start: September 02, 2024 End: September 02, 2024 Dr. Tani Alford MD Referring Provider Active Start: September 02, 2024 End: September 02, 2024 Team Status: Inactive Member Role/Relationship Status Dates Dr. Gracy Shin DO Primary Care Provider Active Start: September 15, 2024 End: September 15, 2024 Dr. Carlin Wilde MD Attending Provider Active S tart: September 15, 2024 End: September 15, 2024 Dr. Carlin Wilde MD Referring Provider Active S tart: September 15, 2024 End: September 15, 2024 Team Status: Inactive Member Role/Relationship Status Dates Dr. Gracy Shin DO Primary Care Provider Active Start: September 19, 2024 End: September 19, 2024 Dr. Gracy Shin DO Referring Provider Active Start: September 19, 2024 End: September 19, 2024 Nguyen Montemayor ORE FEEDER, ORE FEEDER-C Attending Provider Active Start: September 19, 2024 End: September 19, 2024 Team Status: Inactive Member Role/Relationship Status Dates Dr. Gracy Shin DO Primary Care Provider Active Start: September 19, 2024 End: September 19, 2024 Dr. Carlin Wilde MD Attending Provider Active S tart: September 19, 2024 End: September 19, 2024 Dr. Carlin Wilde MD Referring Provider Active S tart: September 19, 2024 End: September 19, 2024 Team Status: Inactive Member Role/Relationship Status Dates Dr. Gracy Shin DO Primary Care Provider Active Start: September 19, 2024 End: September 19, 2024 Dr. Carlin Wilde MD Attending Provider Active S tart: September 19, 2024 End: September 19, 2024 Team Status: Inactive Member Role/Relationship Status Dates Dr. Gracy Shin DO Primary Care Provider Active Start: September 19, 2024 End: September 19, 2024 Nguyen Montemayor ORE FEEDER, ORE FEEDER-C Attending Provider Active Start: September 19, 2024 End: September 19, 2024 Nguyen Montemayor ORE FEEDER, ORE FEEDER-C Referring Provider Active Start: September 19, 2024 End: September 19, 2024 Team Status: Inactive Member Role/Relationship Status Dates Dr. Gracy Shin DO Primary Care Provider Active Start: September 26, 2024 End: September 26, 2024 Nguyen Montemayor ORE FEEDER, ORE FEEDER-C Attending Provider Active Start: September 26, 2024 End: September 26, 2024 Nguyen Montemayor ORE FEEDER, ORE FEEDER-C Referring Provider Active Start: September 26, 2024 End: September 26, 2024 Team Status: Inactive Member Role/Relationship Status Dates Dr. Gracy Shin DO Primary Care Provider Active Start: October 11, 2024 End: October 11, 2024 Dr. Holland Newman MD Attending Provider Active Start: October 11, 2024 End: October 11, 2024 Dr. Holland Newman MD Referring Provider Active Start: October 11, 2024 End: October 11, 2024 Team Status: Active Member Role/Relationship Status Dates Dr. Gracy Shin DO Primary Care Provider Active Start: October 11, 2024 Dr. Holland Newman MD Attending Provider Active Start: October 11, 2024 Dr. Holland Newman MD Referring Provider Active Start: October 11, 2024 Dr. Holland Newman MD Other Provider Active Start: October 11, 2024 Team Status: Inactive Member Role/Relationship Status Dates Dr. Gracy Shin DO Primary Care Provider Active Start: October 18, 2024 End: October 18, 2024 Dr. Gracy Shin DO Referring Provider Active Start: October 18, 2024 End: October 18, 2024 Radha Guzman Attending Provider Active Start: 2024 End: October 18, 2024 Team Status: Inactive Member Role/Relationship Status Dates Dr. Gracy Shin DO Primary Care Provider Active Start: October 18, 2024 End: October 18, 2024 Dr. Carlin Wilde MD Attending Provider Active S tart: October 18, 2024 End: October 18, 2024 Team Status: Inactive Member Role/Relationship Status Dates Dr. Gracy Shin DO Primary Care Provider Active Start: November 07, 2024 End: November 07, 2024 Nguyen Montemayor ORE FEEDER, ORE FEEDER-C Attending Provider Active Start: November 07, 2024 End: November 07, 2024 Nguyen Montemayor ORE FEEDER, ORE FEEDER-C Referring Provider Active Start: November 07, 2024 End: November 07, 2024 Team Status: Active Member Role/Relationship Status Dates Dr. Gracy Shin DO Primary Care Provider Active Start: November 07, 2024 Dr. Carlin Wilde MD Attending Provider Active S tart: November 07, 2024 Team Status: Active Member Role/Relationship Status Dates Dr. Gracy Shin DO Primary Care Provider Active Start: November 08, 2024 Nguyen Montemayor ORE FEEDER, ORE FEEDER-C Attending Provider Active Start: November 08, 2024 Team Status: Inactive Member Role/Relationship Status Dates Dr. Gracy Shin DO Primary Care Provider Active Start: August 12, 2024 End: August 12, 2024 Dr. Gracy Shin DO Attending Provider Active Start: August 12, 2024 End: August 12, 2024 Dr. Tani Alford MD Referring Provider Active Start: August 12, 2024 End: August 12, 2024 Team Status: Inactive Member Role/Relationship Status Dates Dr. Gracy Shin DO Primary Care Provider Active Start: August 22, 2024 End: August 22, 2024 Dr. Gracy Shin DO Referring Provider Active Start: August 22, 2024 End: August 22, 2024 Dr. Birdie Hernandes MD Attending Provider Active Start: August 22, 2024 End: August 22, 2024 Team Status: Inactive Member Role/Relationship Status Dates Dr. Gracy Shin DO Primary Care Provider Active Start: August 23, 2024 End: August 23, 2024 Dr. Pipe Romero MD Attending Provider Active S tart: August 23, 2024 End: August 23, 2024 Dr. Pipe Romero MD Referring Provider Active S tart: August 23, 2024 End: August 23, 2024 Team Status: Inactive Member Role/Relationship Status Dates Dr. Gracy Shin DO Primary Care Provider Active Start: September 02, 2024 End: September 02, 2024 Dr. Tani Alford MD Attending Provider Active Start: September 02, 2024 End: September 02, 2024 Dr. Tani Alford MD Referring Provider Active Start: September 02, 2024 End: September 02, 2024 Team Status: Inactive Member Role/Relationship Status Dates Dr. Gracy Shin DO Primary Care Provider Active Start: September 15, 2024 End: September 15, 2024 Dr. Carlin Wilde MD Attending Provider Active S tart: September 15, 2024 End: September 15, 2024 Dr. Carlin Wilde MD Referring Provider Active S tart: September 15, 2024 End: September 15, 2024 Team Status: Inactive Member Role/Relationship Status Dates Dr. Gracy Shin DO Primary Care Provider Active Start: September 19, 2024 End: September 19, 2024 Dr. Gracy Shin DO Referring Provider Active Start: September 19, 2024 End: September 19, 2024 Nguyen Montemayor ORE FEEDER, ORE FEEDER-C Attending Provider Active Start: September 19, 2024 End: September 19, 2024 Team Status: Inactive Member Role/Relationship Status Dates Dr. Gracy Shin DO Primary Care Provider Active Start: September 19, 2024 End: September 19, 2024 Dr. Carlin Wilde MD Attending Provider Active S tart: September 19, 2024 End: September 19, 2024 Dr. Carlin Wilde MD Referring Provider Active S tart: September 19, 2024 End: September 19, 2024 Team Status: Inactive Member Role/Relationship Status Dates Dr. Gracy Shin DO Primary Care Provider Active Start: September 19, 2024 End: September 19, 2024 Dr. Carlin Wilde MD Attending Provider Active S tart: September 19, 2024 End: September 19, 2024 Team Status: Inactive Member Role/Relationship Status Dates Dr. Gracy Shin DO Primary Care Provider Active Start: September 19, 2024 End: September 19, 2024 Nguyen Montemayor ORE FEEDER, ORE FEEDER-C Attending Provider Active Start: September 19, 2024 End: September 19, 2024 Nguyen Montemayor ORE FEEDER, ORE FEEDER-C Referring Provider Active Start: September 19, 2024 End: September 19, 2024 Team Status: Inactive Member Role/Relationship Status Dates Dr. Gracy Shin DO Primary Care Provider Active Start: September 26, 2024 End: September 26, 2024 Nguyen Montemayor ORE FEEDER, ORE FEEDER-C Attending Provider Active Start: September 26, 2024 End: September 26, 2024 Nguyen Montemayor ORE FEEDER, ORE FEEDER-C Referring Provider Active Start: September 26, 2024 End: September 26, 2024 Team Status: Inactive Member Role/Relationship Status Dates Dr. Gracy Shin DO Primary Care Provider Active Start: October 11, 2024 End: October 11, 2024 Dr. Holland Newman MD Attending Provider Active Start: October 11, 2024 End: October 11, 2024 Dr. Holland Newman MD Referring Provider Active Start: October 11, 2024 End: October 11, 2024 Team Status: Active Member Role/Relationship Status Dates Dr. Gracy Shin DO Primary Care Provider Active Start: October 11, 2024 Dr. Holland Newman MD Attending Provider Active Start: October 11, 2024 Dr. Holland Newman MD Referring Provider Active Start: October 11, 2024 Dr. Holland Newman MD Other Provider Active Start: October 11, 2024 Team Status: Inactive Member Role/Relationship Status Dates Dr. Gracy Shin DO Primary Care Provider Active Start: October 18, 2024 End: October 18, 2024 Dr. Carlin Wilde MD Attending Provider Active S tart: October 18, 2024 End: October 18, 2024 Dr. Carlin Wilde MD Referring Provider Active S tart: October 18, 2024 End: October 18, 2024 Team Status: Inactive Member Role/Relationship Status Dates Dr. Gracy Shin DO Primary Care Provider Active Start: October 18, 2024 End: October 18, 2024 Dr. Carlin Wilde MD Attending Provider Active S tart: October 18, 2024 End: October 18, 2024 Team Status: Inactive Member Role/Relationship Status Dates Dr. Gracy Shin DO Primary Care Provider Active Start: November 07, 2024 End: November 07, 2024 Nguyen Montemayor ORE FEEDER, ORE FEEDER-C Attending Provider Active Start: November 07, 2024 End: November 07, 2024 Nguyen Montemayor ORE FEEDER, ORE FEEDER-C Referring Provider Active Start: November 07, 2024 End: November 07, 2024 Team Status: Active Member Role/Relationship Status Dates Dr. Gracy Shin DO Primary Care Provider Active Start: November 07, 2024 Dr. Carlin Wilde MD Attending Provider Active S tart: November 07, 2024 Team Status: Active Member Role/Relationship Status Dates Dr. Gracy Shin DO Primary Care Provider Active Start: November 08, 2024 Nguyen Montemayor ORE FEEDER, ORE FEEDER-C Attending Provider Active Start: November 08, 2024 Team Status: Inactive Member Role/Relationship Status Dates Dr. Gracy Shin DO Primary Care Provider Active Start: November 16, 2024 End: November 16, 2024 Dr. Vasyl Aguilar MD Attending Provider Active Start: November 16, 2024 End: November 16, 2024 Dr. Vasyl Aguilar MD Referring Provider Active Start: November 16, 2024 End: November 16, 2024 Team Status: Active Member Role/Relationship Status Dates Dr. Gracy Shin DO Primary Care Provider Active Start: November 17, 2024 Dr. Al Ramirez MD Attending Provider Active Start: November 17, 2024 Dr. Al Ramirez MD Referring Provider Active Start: November 17, 2024 Team Status: Inactive Member Role/Relationship Status Dates Dr. Gracy Shin DO Primary Care Provider Active Start: November 17, 2024 End: November 17, 2024 Dr. Al Ramirez MD Attending Provider Active Start: November 17, 2024 End: November 17, 2024 Dr. Al Ramirez MD Referring Provider Active Start: November 17, 2024 End: November 17, 2024 Team Status: Active Member Role/Relationship Status Dates Dr. Gracy Shin DO Primary care physician Active Team Status: Inactive Member Role/Relationship Status Dates Dr. Gracy Shin DO Primary care physician Active Start: August 23, 2024 End: August 23, 2024 Dr. Pipe Romero MD Attending physician Active Start: August 23, 2024 End: August 23, 2024 Dr. Pipe Romero MD Referring Provider Active S tart: August 23, 2024 End: August 23, 2024 Team Status: Inactive Member Role/Relationship Status Dates Dr. Gracy Shin DO Primary care physician Active Start: September 02, 2024 End: September 02, 2024 Dr. Tani Alford MD Attending physician Active Start: September 02, 2024 End: September 02, 2024 Dr. Tani Alford MD Referring Provider Active Start: September 02, 2024 End: September 02, 2024 Team Status: Inactive Member Role/Relationship Status Dates Dr. Gracy Shin DO Primary care physician Active Start: September 15, 2024 End: September 15, 2024 Dr. Carlin Wilde MD Attending physician Active Start: September 15, 2024 End: September 15, 2024 Dr. Carlin Wilde MD Referring Provider Active S tart: September 15, 2024 End: September 15, 2024 Team Status: Inactive Member Role/Relationship Status Dates Dr. Gracy Shin DO Primary care physician Active Start: September 19, 2024 End: September 19, 2024 Dr. Gracy Shin DO Referring Provider Active Start: September 19, 2024 End: September 19, 2024 Nguyen Montemayor NP, ORE FEEDER-C Attending physician Active Start: September 19, 2024 End: September 19, 2024 Team Status: Inactive Member Role/Relationship Status Dates Dr. Gracy Shin DO Primary care physician Active Start: September 19, 2024 End: September 19, 2024 Dr. Carlin Wilde MD Attending physician Active Start: September 19, 2024 End: September 19, 2024 Dr. Carlin Wilde MD Referring Provider Active S tart: September 19, 2024 End: September 19, 2024 Team Status: Inactive Member Role/Relationship Status Dates Dr. Gracy Shin DO Primary care physician Active Start: September 19, 2024 End: September 19, 2024 Dr. Carlin Wilde MD Attending physician Active Start: September 19, 2024 End: September 19, 2024 Team Status: Inactive Member Role/Relationship Status Dates Dr. Gracy Shin DO Primary care physician Active Start: September 19, 2024 End: September 19, 2024 Nguyen Montemayor NP, ORE FEEDER-C Attending physician Active Start: September 19, 2024 End: September 19, 2024 Nguyen Montemayor NP, ORE FEEDER-C Referring Provider Active Start: September 19, 2024 End: September 19, 2024 Team Status: Inactive Member Role/Relationship Status Dates Dr. Gracy Shin DO Primary care physician Active Start: September 26, 2024 End: September 26, 2024 Nguyen Montemayor ORE FEEDER, ORE FEEDER-C Attending physician Active Start: September 26, 2024 End: September 26, 2024 Nguyen Montemayor ORE FEEDER, ORE FEEDER-C Referring Provider Active Start: September 26, 2024 End: September 26, 2024 Team Status: Inactive Member Role/Relationship Status Dates Dr. Gracy Shin DO Primary care physician Active Start: October 11, 2024 End: October 11, 2024 Dr. Holland Newman MD Attending physician Active Start: October 11, 2024 End: October 11, 2024 Dr. Holland Newman MD Referring Provider Active Start: October 11, 2024 End: October 11, 2024 Team Status: Active Member Role/Relationship Status Dates Dr. Gracy Shin DO Primary care physician Active Start: October 11, 2024 Dr. Holland Newman MD Attending physician Active Start: October 11, 2024 Dr. Holland Newman MD Referring Provider Active Start: October 11, 2024 Dr. Holland Newman MD Nurse Practitioner Active Start: October 11, 2024 Team Status: Inactive Member Role/Relationship Status Dates Dr. Gracy Shin DO Primary care physician Active Start: October 18, 2024 End: October 18, 2024 Dr. Carlin Wilde MD Attending physician Active Start: October 18, 2024 End: October 18, 2024 Dr. Carlin Wilde MD Referring Provider Active S tart: October 18, 2024 End: October 18, 2024 Team Status: Inactive Member Role/Relationship Status Dates Dr. Gracy Shin DO Primary care physician Active Start: October 18, 2024 End: October 18, 2024 Dr. Carlin Wilde MD Attending physician Active Start: October 18, 2024 End: October 18, 2024 Team Status: Inactive Member Role/Relationship Status Dates Dr. Gracy Shin DO Primary care physician Active Start: November 07, 2024 End: November 07, 2024 Nguyen Montemayor ORE FEEDER, ORE FEEDER-C Attending physician Active Start: November 07, 2024 End: November 07, 2024 Nguyen Montemayor ORE FEEDER, ORE FEEDER-C Referring Provider Active Start: November 07, 2024 End: November 07, 2024 Team Status: Active Member Role/Relationship Status Dates Dr. Gracy Shin DO Primary care physician Active Start: November 07, 2024 Dr. Carlin Wilde MD Attending physician Active Start: November 07, 2024 Team Status: Active Member Role/Relationship Status Dates Dr. Gracy Shin DO Primary care physician Active Start: November 08, 2024 Nguyen Montemayor NP, ORE FEEDER-C Attending physician Active Start: November 08, 2024 Team Status: Inactive Member Role/Relationship Status Dates Dr. Gracy Shin DO Primary care physician Active Start: November 16, 2024 End: November 16, 2024 Dr. Vasyl Aguilar MD Attending physician Active Start: November 16, 2024 End: November 16, 2024 Dr. Vasyl Aguilar MD Referring Provider Active Start: November 16, 2024 End: November 16, 2024 Team Status: Inactive Member Role/Relationship Status Dates Dr. Gracy Shin DO Primary care physician Active Start: November 17, 2024 End: November 17, 2024 Dr. Al Ramirez MD Attending physician Active Start: November 17, 2024 End: November 17, 2024 Dr. Al Ramirez MD Referring Provider Active Start: November 17, 2024 End: November 17, 2024 Team Status: Inactive Member Role/Relationship Status Dates Dr. Gracy Shin DO Primary care physician Active Start: December 08, 2024 End: December 08, 2024 Dr. Al Ramirez MD Attending physician Active Start: December 08, 2024 End: December 08, 2024 Dr. Al Ramirez MD Referring Provider Active Start: December 08, 2024 End: December 08, 2024 Source Comments (unrecognize d section and content) In the event this informatio n is protected by the Federal Confidentiality of Alcohol and Drug Abuse Patient Records regulations: The Federal rules restrict any use of the information to criminally investigate or prosecute any alcohol or drug abuse patient.[facility] the event this information is protected by the Federal Confidentiality of Alcohol and Drug Abuse Patient Records regulations: The Federal rules restrict any use of the information to criminally investigate or prosecute any alcohol or drug abuse patient.[facility] Reason for Visit (unrecogniz ed section and content) Reason Comments New Patient ORE FEEDER, anemia, referred by Dr Ramirez Reason Comments Established Patient FOR RECORDS PERTAINING TO PATIENTS WHO ARE [...] BE BASED ON THE PRIMARY CLINICAL RECORDS. [facility] [employer] [facility]. provides no warranty or guarantee of the accuracy or completeness of information in this document.
[2025-02-17 11:03] LABS: Hematocrit 29.3 % (40-54); Hemoglobin 8.6 g/dL (13.0-16.5); Immature Granulocytes Count 0.010 X10^3/uL (0.0-0.0); Mean Corp Hgb Conc 29.4 g/dL (32-36); Mean Corpuscular Volume 100.7 fL (80-94); Mean Platelet Vol. 9.7 fl (6.2-12.0); NRBC Flagged by Analyzer 0 % (0-5); Platelet Count 155 K/mm3 (150-450); RBC Distribution Width CV 17.0 % (11.6-14.6); RBC Distribution Width SD 61.1 fl (35.1-43.9); Red Blood Count 2.91 M/mm3 (4.6-6.2); White Blood Count 4.9 K/mm3 (4.4-11.0)
[2025-02-17 11:19] LABS: Creatinine, Urine (random) 29.30 mg/dL (39.00-259.00); Protein, Urine (Random) 24.5 mg/dL (0.0-12.0); Protein:Creat Ratio 836 mg/g CRE (0-200)
[2025-02-17 11:56] LABS: Hepatitis B Surface Antigen Nonreactive (Nonreactive); Hepatitis C Antibody Nonreactive (Nonreactive)
[2025-02-17 12:30] LABS: AST(SGOT) 23 U/L (<=37); Alanine Aminotransfer ALT/SGPT 19 U/L (<=46); Albumin, Serum 3.9 g/dL (3.4-4.8); Alkaline Phosphatase 221 U/L (40-129); Anion Gap 13 (5-15); BUN 6 mg/dL (4-19); BUN/Creat Ratio 2.5 RATIO (10-20); Bilirubin, Direct 0.22 mg/dL (0.00-0.30); Calcium,Total 8.6 mg/dL (7.6-11.0); Carbon Dioxide 21.2 mmol/L (21.0-32.0); Chloride 106 mmol/L (98-108); Globulin 3.9 g/dL (2.2-4.2); Glucose 98 mg/dL (70-99); Potassium 5.6 mmol/L (3.3-5.1)
== END | disposition home or self-care (01) ==
LOC: LAB 10:36
PROVIDERS: PCP Family Medicine; Referring Provider Internal Medicine Nephrology; Visit Provider Dermatology
DX: N18.4 Chronic kidney disease, stage 4 (severe) (principal); Z79.899 Other long term (current) drug therapy
CPT/HCPCS: 36415; 80048; 80076; 82570; 84100; 84156; 85025; 86704; 86706; 86803; 87340

== ENCOUNTER → 2025-02-28 | Outpatient (CLI) | payer MEDICARE, OTHER, SELFPAY ==
[2025-02-28 12:09] LABS: Ferritin 62 ng/mL (37-417)
[2025-02-28 12:32] LABS: Iron 36 ug/dL (65-175)
== END | disposition home or self-care (01) ==
LOC: BFHLAB 10:47
PROVIDERS: PCP Family Medicine; Visit Provider Family Medicine
DX: D64.9 Anemia, unspecified (principal)
CPT/HCPCS: 36415; 82728; 83540

== ENCOUNTER → 2025-03-06 | Outpatient (CLI) | payer MEDICARE, OTHER, SELFPAY ==
[2025-03-06 09:34] LABS: Hematocrit 30.8 % (40-54); Hemoglobin 8.7 g/dL (13.0-16.5); Immature Granulocytes Count 0.020 X10^3/uL (0.0-0.0); Mean Corp Hgb Conc 28.2 g/dL (32-36); Mean Corpuscular Volume 101.0 fL (80-94); Mean Platelet Vol. 9.3 fl (6.2-12.0); NRBC Flagged by Analyzer 0 % (0-5); POSITIVE DIFFERENTIAL YES; Platelet Count 155 K/mm3 (150-450); RBC Distribution Width CV 16.5 % (11.6-14.6); RBC Distribution Width SD 60.8 fl (35.1-43.9); Red Blood Count 3.05 M/mm3 (4.6-6.2); White Blood Count 6.5 K/mm3 (4.4-11.0)
[2025-03-06 10:04] LABS: Anion Gap 12 (5-15); BUN 77 mg/dL (4-19); BUN/Creat Ratio 33.2 RATIO (10-20); Calcium,Total 9.0 mg/dL (7.6-11.0); Carbon Dioxide 23.6 mmol/L (21.0-32.0); Chloride 106 mmol/L (98-108); Glucose 103 mg/dL (70-99); Potassium 5.3 mmol/L (3.3-5.1)
== END | disposition home or self-care (01) ==
LOC: LAB 09:11
PROVIDERS: PCP Family Medicine; Referring Provider Nurse Practitioner Gerontology; Visit Provider Nurse Practitioner Gerontology
DX: R53.83 Other fatigue (principal)
CPT/HCPCS: 36415; 80048; 85025

== ENCOUNTER 2025-03-07 11:39 | Outpatient (CLI) | payer MEDICARE, OTHER, SELFPAY ==
[2025-03-07 11:57] VITALS: BP 129/83; PULSE 83; RESP 16; TEMP 36.2; O2SAT 98; BMI 26.7
[2025-03-07] MEDS: 0.9% NaCl IVPB Med Flush (100mL) 15 ML IV (11:59)
[2025-03-07] MEDS: 0.9% NaCl Peripheral Flush Adult IV (11:59)
[2025-03-07] MEDS: Ferric Carboxymaltose (Injectafer) 750 MG in 0.9% NaCl 250 ML 795 MG IV (12:06)
[2025-03-07 12:41] VITALS: BP 115/66; PULSE 62; RESP 16; TEMP 36.1; O2SAT 95
== END 2025-03-07 23:59 | disposition home or self-care (01) ==
LOC: MEDOUTP 11:40
PROVIDERS: PCP Family Medicine; Referring Provider Family Medicine; Visit Provider Family Medicine
DX: D64.9 Anemia, unspecified (principal); N18.4 Chronic kidney disease, stage 4 (severe); I51.9 Heart disease, unspecified
CPT/HCPCS: 96365; J1439; A4216

== ENCOUNTER 2025-03-14 12:03 | Outpatient (CLI) | payer MEDICARE, OTHER, SELFPAY ==
[2025-03-14 12:21] VITALS: BP 118/71; PULSE 98; RESP 16; O2SAT 92
[2025-03-14] MEDS: 0.9% NaCl Peripheral Flush Adult IV (12:25)
[2025-03-14] MEDS: 0.9% NaCl IVPB Med Flush (100mL) 15 ML IV (12:26)
[2025-03-14] MEDS: Ferric Carboxymaltose (Injectafer) 750 MG in 0.9% NaCl 250 ML 795 MG IV (12:30)
[2025-03-14 12:56] VITALS: BP 110/58; PULSE 60; RESP 16; O2SAT 99
== END 2025-03-14 23:59 | disposition home or self-care (01) ==
LOC: MEDOUTP 12:03
PROVIDERS: PCP Family Medicine; Referring Provider Family Medicine; Visit Provider Family Medicine
DX: D64.9 Anemia, unspecified (principal); N18.4 Chronic kidney disease, stage 4 (severe); I51.9 Heart disease, unspecified
CPT/HCPCS: 96365; J1439; A4216